=== PATIENT | female | born 1975 | race African-American/Black ===

== ENCOUNTER 2017-09-22 02:45 | Emergency (ER) | payer SELFPAY ==
[2017-09-22] MEDS ORDERED: MAGNE/ALUM HYDROXD 30 ML UCUP ONE (03:49)
[2017-09-22] MEDS ORDERED: LIDOCAINE VISCOUS 2% SOLN 15 ML UDC ONE (03:49)
[2017-09-22] MEDS ORDERED: DEXAMETHASONE 10 MG/ML VIAL ONE (04:15)
[2017-09-22 04:16] LABS: Protime INR 1.23
[2017-09-22 04:17] LABS: Absolute Monocytes 0.4 K/uL (0.1-1.3); Absolute Neutrophil 3.7 K/uL (1.8-8.0); Basophils % 0.3 % (0-1.3); Eosinophils % 1.5 % (0-4.4); Hematocrit 39.8 % (36.0-45.0); MCH 29.7 pg (27.0-35.0); MCV 88.7 fL (80-100); MPV 8.9 fL (7.6-11.3); Monocytes % 6.7 % (3.3-12.3); RBC Red Blood Cell Count 4.49 M/uL (3.86-4.86)
[2017-09-22 04:31] LABS: ALT/SGPT 45 U/L (12-78); AST/SGOT 26 U/L (15-37); Albumin 3.8 g/dL (3.4-5.0); Alkaline Phosphatase 85 U/L (45-117); BUN Blood Urea Nitrogen 11 mg/dL (7-18); Bicarbonate 31 mmol/L (21-32); Bilirubin Direct 0.1 mg/dL (0-0.2); Bilirubin Total 0.5 mg/dL (0.2-1.0); Glucose Level 106 mg/dL (74-106); Magnesium 2.1 mg/dL (1.8-2.4); NT PRO-BNP 17 pg/mL (<125); Potassium 3.5 mmol/L (3.5-5.1); Protein, Total 8.8 g/dL (6.4-8.2); Sodium Level 140 mmol/L (136-145)
[2017-09-22 04:40] LABS: Urine Blood TRACE (NEG); Urine Glucose NEGATIVE (NEG); Urine Protein NEGATIVE (NEG); Urine pH 6.5 (5.0-7.0)
[2017-09-22 04:46] LABS: Urine Culture Reflex Order NOT NEEDED
[2017-09-22 04:47] LABS: Urine Amorphous Sediment 1+ /HPF (NONE SEEN); Urine Bacteria <20 /HPF (<20); Urine RBC <5 /HPF (NONE SEEN)
--- NOTE | 2017-09-22 07:05 | ER ---
Nurse's Notes [facility] Name: Roxana Sanchez Age: 42 yrs Sex: Female : 1975 Arrival Date: 09/22/2017 Time: 02:45 Bed 20 Private MD: Diagnosis: Acute Chest Pain;Acute Throat Pain Presentation: 09/22 02:50 Presenting complaint: Patient states: that for the past 2 nights she has been having a sore throat and it feels as if her "esophagus" is closing up. Also having chest pain that does not radiate. Denies any nausea or vomiting but some shortness of breath. Transition of care: patient was not received from another setting of care. Onset of symptoms was September 20, 2017. Risk Assessment: Do you want to hurt yourself or someone else? Patient reports no desire to harm self or others. Initial Sepsis Screen: Does the patient meet any 2 criteria? No. Patient's initial sepsis screen is negative. Does the patient have a suspected source of infection? No. Patient's initial sepsis screen is negative. Care prior to arrival: None. 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 - Social history:: Smoking status: Patient/guardian denies using tobacco. - Ebola Screening: : Patient negative for fever greater than or equal to 101.5 degrees Fahrenheit, and additional compatible Ebola Virus Disease symptoms Patient denies exposure to infectious person Patient denies travel to an Ebola-affected area in the 21 days before illness onset. - Family history:: not pertinent. - Hospitalizations: : No recent hospitalization is reported. Screenin:00 Abuse screen: Denies threats or abuse. Nutritional screening: No deficits noted. fc Tuberculosis screening: No symptoms or risk factors identified. Fall Risk None identified. Assessment: 03:00 General: Appears in no apparent distress. uncomfortable, Behavior is calm, cooperative, bs1 appropriate for age. Pain: Complains of pain in chest/epigastric area Pain does not radiate. Pain began gradually. Neuro: Level of Consciousness is awake, alert, obeys commands, Oriented to person, place, time, situation, Appropriate for age. Cardiovascular: Reports chest pain, Denies shortness of breath, Heart tones S1 S2 present Capillary refill < 3 seconds Patient's skin is warm and dry. Respiratory: Airway is patent Trachea midline Respiratory effort is even, unlabored, Respiratory pattern is regular, symmetrical, Breath sounds are clear bilaterally. Respiratory: Reports cough that is productive, patient states that she feels some her esophagus is closing up and it feels like she cant breathe. GI: Abdomen is round non-distended, Bowel sounds present X 4 quads. Reports epigastric pain. : No signs and/or symptoms were reported regarding the genitourinary system. EENT: No signs and/or symptoms were reported regarding the EENT system. Derm: Skin is intact, Skin is pink, warm \\T\\ dry. normal. Musculoskeletal: Circulation, motion, and sensation intact. Capillary refill < 3 seconds, Range of motion: intact in all extremities. 04:00 Reassessment: No changes from previously documented assessment. Patient and/or family bs1 updated on plan of care and expected duration. Pain level reassessed. Patient is alert, oriented x 3, equal unlabored respirations, skin warm/dry/pink. 05:00 Reassessment: Patient appears in no apparent distress at this time. Patient and/or bs1 family updated on plan of care and expected duration. Pain level reassessed. Patient is alert, oriented x 3, equal unlabored respirations, skin warm/dry/pink. patient denies any nausea or vomiting at this time. 06:15 Reassessment: Patient and/or family updated on plan of care and expected duration. Pain bs1 level reassessed. Patient is alert, oriented x 3, equal unlabored respirations, skin warm/dry/pink. Pending CT results. No further needs at this time. Patient denies pain at this time. 07:05 Reassessment: Patient appears in no apparent distress at this time. Patient and/or em family updated on plan of care and expected duration. Pain level reassessed. Patient is alert, oriented x 3, equal unlabored respirations, skin warm/dry/pink. Patient states feeling better. Vital Signs: 02:50 BP 129 / 82; Pulse 63; Resp 18; Temp 98.9(O); Pulse Ox 100% on R/A; Weight 72.57 kg fc (R); Height 5 ft. 4 in. (162.56 cm) (R); Pain 7/10; 03:50 BP 134 / 83; Pulse 64; Resp 17 S; Pulse Ox 100% ; bs1 04:50 BP 123 / 74; Pulse 66; Resp 16 S; Pulse Ox 98% on R/A; bs1 05:50 BP 121 / 78; Pulse 64; Resp 16; Pulse Ox 99% on R/A; bs1 06:15 BP 131 / 83; Pulse 66; Resp 16 S; Temp 98(O); Pulse Ox 98% on R/A; bs1 07:23 BP 117 / 65; Pulse 71; Resp 18; Pulse Ox 99% on R/A; Pain 4/10; em 02:50 Body Mass Index 27.46 (72.57 kg, 162.56 cm) fc ED Course: 02:45 Patient arrived in ED. ds1 02:50 Arm band placed on Patient placed in an exam room, on a stretcher. fc 02:50 Patient has correct armband on for positive identification. Placed in gown. Bed in low fc position. Call light in reach. monitor tech on. Pulse ox on. NIBP on. 02:53 Isaak Lomax MD is Attending Physician. wa 02:58 Triage completed. fc 02:59 No provider procedures requiring assistance completed. EKG done, by ED staff, reviewed fc by Isaak Lomax MD. Patient maintains SpO2 saturation greater than 95% on room air. 03:13 France Renner, RN is Primary Nurse. bs1 03:55 Initial lab(s) drawn, by in, sent to lab. Inserted saline lock: 20 gauge in right ks6 antecubital area, using aseptic technique. Blood collected. 04:08 Chest Pa And Lat (2 Views) XRAY In Process Unspecified. EDMS 04:19 Radiology exam delayed due to lab results not completed at this time. (BUN/Creatinine). kw1 04:[address] via wheelchair. kw1 05:20 CT Chest For PE Angio In Process Unspecified. EDMS 05:21 CT Soft Tissue Neck W/contr In Process Unspecified. EDMS 05:21 CT completed. Patient tolerated procedure well. Patient moved back from CT. kw1 07:20 IV discontinued, intact, bleeding controlled, No redness/swelling at site. Pressure em dressing applied. Administered Medications: 03:51 Drug: GI Cocktail without - (Maalox Suspension 30 ml, Lidocaine Liquid 2 % 15 bs1 ml) Route: PO; 07:22 Follow up: Response: No adverse reaction em 04:17 Drug: Decadron - Dexamethasone 10 mg Route: IVP; Site: right antecubital; bs1 07:22 Follow up: Response: No adverse reaction em Outcome: 07:04 Discharge ordered by . estelita 07:21 Discharged to home ambulatory. em 07:21 Condition: good 07:21 Discharge instructions given to patient, Instructed on discharge instructions, follow up and referral plans. medication usage, Demonstrated understanding of instructions, follow-up care, medications, Prescriptions given X 1. 07:24 Patient left the ED. em Signatures: Dispatcher [employer] EDAK Prabha Franco, RN RN Tico Null, CHEMISTRY TECHNICAL OFFICER CHEMISTRY TECHNICAL OFFICER em Sridevi Jeffries ds1 Isaak Lomax MD MD wa Wilhelm, Kimberly kw1 France Renner RN RN bs1 Obed Merrill ks6
--- NOTE | 2017-09-22 07:05 | EDPHYS ---
Physician Documentation [facility] Name: Roxana Sanchez Age: 42 yrs Sex: Female : 1975 Arrival Date: 09/22/2017 Time: 02:45 Bed 20 Private MD: ED Physician Isaak Lomax HPI: 09/22 06:52 This 42 yrs old Black Female presents to ER via Ambulatory with complaints of Chest wa Pain, Sore Throat. 06:52 The patient or guardian reports chest pain that is located primarily in the L chest. wa c/o L chest pain and sensation of "something stuck in the throat" x 2 days. woke her up while laying down tonight. denies known ingestion. Onset: 2 day(s) ago. The pain does not radiate. Associated signs and symptoms: Pertinent positives: Pertinent negatives: abdominal pain, cough, dizziness, headache, shortness of breath, syncope, vomiting. The chest pain is described as sharp. Duration: The patient or guardian reports a single episode, The patient or guardian reports multiple episodes, that are intermittent, that wax and wane. Modifying factors: The symptoms are alleviated by nothing. the symptoms are aggravated by swallowing. Severity of pain: At its worst the pain was moderate in the emergency department the pain is unchanged. The patient has not experienced similar symptoms in the past. The patient has not recently seen a physician. 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 - Social history:: Smoking status: Patient/guardian denies using tobacco. - Ebola Screening: : Patient negative for fever greater than or equal to 101.5 degrees Fahrenheit, and additional compatible Ebola Virus Disease symptoms Patient denies exposure to infectious person Patient denies travel to an Ebola-affected area in the 21 days before illness onset. - Family history:: not pertinent. - Hospitalizations: : No recent hospitalization is reported. ROS: 06:55 Constitutional: Negative for fever, chills, and weight loss, Eyes: Negative for injury, wa pain, redness, and discharge, Neck: Negative for injury, pain, and swelling, Respiratory: Negative for shortness of breath, cough, wheezing, and pleuritic chest pain, Abdomen/GI: Negative for abdominal pain, nausea, vomiting, diarrhea, and constipation, Back: Negative for injury and pain, : Negative for injury, bleeding, discharge, and swelling, MS/Extremity: Negative for injury and deformity, Skin: Negative for injury, rash, and discoloration, Neuro: Negative for headache, weakness, numbness, tingling, and seizure, Psych: Negative for depression, anxiety, suicide ideation, homicidal ideation, and hallucinations. 06:55 ENT: Positive for foreign body sensation, Negative for nasal discharge, rhinorrhea. 06:55 Cardiovascular: Positive for chest pain, Negative for edema, orthopnea, palpitations. Exam: 06:56 Constitutional: This is a well developed, well nourished patient who is awake, alert, wa and in no acute distress. Head/Face: Normocephalic, atraumatic. Eyes: Pupils equal round and reactive to light, extra-ocular motions intact. Lids and lashes normal. Conjunctiva and sclera are non-icteric and not injected. Cornea within normal limits. Periorbital areas with no swelling, redness, or edema. ENT: Nares patent. No nasal discharge, no septal abnormalities noted. Tympanic membranes are normal and external auditory canals are clear. Oropharynx with no redness, swelling, or masses, exudates, or evidence of obstruction, uvula midline. Mucous membranes moist. Neck: Trachea midline, no thyromegaly or masses palpated, and no cervical lymphadenopathy. Supple, full range of motion without nuchal rigidity, or vertebral point tenderness. No Meningismus. Chest/axilla: Normal chest wall appearance and motion. Nontender with no deformity. No lesions are appreciated. Cardiovascular: Regular rate and rhythm with a normal S1 and S2. No gallops, murmurs, or rubs. Normal PMI, no JVD. No pulse deficits. Respiratory: Lungs have equal breath sounds bilaterally, clear to auscultation and percussion. No rales, rhonchi or wheezes noted. No increased work of breathing, no retractions or nasal flaring. Abdomen/GI: Soft, non-tender, with normal bowel sounds. No distension or tympany. No guarding or rebound. No evidence of tenderness throughout. Back: No spinal tenderness. No costovertebral tenderness. Full range of motion. Skin: Warm, dry with normal turgor. Normal color with no rashes, no lesions, and no evidence of cellulitis. MS/ Extremity: Pulses equal, no cyanosis. Neurovascular intact. Full, normal range of motion. Neuro: Awake and alert, GCS 15, oriented to person, place, time, and situation. Cranial nerves II-XII grossly intact. Motor strength 5/5 in all extremities. Sensory grossly intact. Cerebellar exam normal. Normal gait. Psych: Awake, alert, with orientation to person, place and time. Behavior, mood, and affect are within normal limits. Vital Signs: 02:50 BP 129 / 82; Pulse 63; Resp 18; Temp 98.9(O); Pulse Ox 100% on R/A; Weight 72.57 kg fc (R); Height 5 ft. 4 in. (162.56 cm) (R); Pain 7/10; 03:50 BP 134 / 83; Pulse 64; Resp 17 S; Pulse Ox 100% ; bs1 04:50 BP 123 / 74; Pulse 66; Resp 16 S; Pulse Ox 98% on R/A; bs1 05:50 BP 121 / 78; Pulse 64; Resp 16; Pulse Ox 99% on R/A; bs1 06:15 BP 131 / 83; Pulse 66; Resp 16 S; Temp 98(O); Pulse Ox 98% on R/A; bs1 07:23 BP 117 / 65; Pulse 71; Resp 18; Pulse Ox 99% on R/A; Pain 4/10; em 02:50 Body Mass Index 27.46 (72.57 kg, 162.56 cm) MDM: 02:53 Patient medically screened. wa 06:57 Differential diagnosis: r/o cardiac abnml. consider FB vs oropharyngeal swelling. Data wa reviewed: vital signs, nurses notes. Test interpretation: by ED physician or midlevel provider: EKG: no acute ischemic changes. 06:59 Test interpretation: by ED physician or midlevel provider: labs wnl. CT chest: no acute wa process. 07:01 Test interpretation: by ED physician or midlevel provider: EKG: HR 63. nml . wa 07:02 Test interpretation: by ED physician or midlevel provider: CT neck: mild subglottic id trachea narrowing. no assoc suspicious findings. 07:02 Response to treatment: the patient's symptoms have markedly improved after treatment. id 09/22 03:06 Order name: Urine Dipstick--Ancillary (enter results); Complete Time: 04:47 09/22 03:24 Order name: Basic Metabolic Panel; Complete Time: 04:47 id 09/22 03:24 Order name: CBC with Diff; Complete Time: 04:48 id 09/22 03:24 Order name: LFT's; Complete Time: 04:47 id 09/22 03:24 Order name: Magnesium; Complete Time: 04:48 id 09/22 03:24 Order name: NT PRO-BNP; Complete Time: 04:48 id 09/22 03:24 Order name: PT-INR; Complete Time: 04:47 id 09/22 03:24 Order name: Troponin (emerg Dept Use Only); Complete Time: 04:48 id 09/22 03:24 Order name: Chest Pa And Lat (2 Views) XRAY 09/22 03:25 Order name: Urine Microscopic Only; Complete Time: 04:48 id 09/22 03:27 Order name: CT Chest For PE Angio 09/22 03:29 Order name: CT Soft Tissue Neck W/contr 09/22 03:24 Order name: EKG; Complete Time: 03:24 id 09/22 03:24 Order name: Cardiac monitoring; Complete Time: 03:30 id 09/22 03:24 Order name: EKG - Nurse/Tech; Complete Time: 03:30 id 09/22 03:24 Order name: IV Saline Lock; Complete Time: 03:56 id 09/22 03:24 Order name: Labs collected and sent; Complete Time: 03:56 id 09/22 03:24 Order name: O2 Per Protocol; Complete Time: 03:43 id 09/22 03:24 Order name: O2 Sat Monitoring; Complete Time: 03:31 id 09/22 03:24 Order name: Urine Dipstick-Ancillary (obtain specimen); Complete Time: 03:30 id 09/22 03:27 Order name: Urine Test (obtain specimen); Complete Time: 04:18 id Administered Medications: 03:51 Drug: GI Cocktail without - (Maalox Suspension 30 ml, Lidocaine Liquid 2 % 15 bs1 ml) Route: PO; 07:22 Follow up: Response: No adverse reaction em 04:17 Drug: Decadron - Dexamethasone 10 mg Route: IVP; Site: right antecubital; bs1 07:22 Follow up: Response: No adverse reaction em Disposition: 09/22/17 07:04 Discharged to Home. Impression: Acute Chest Pain, Acute Throat Pain. - Condition is Stable. - Prescriptions for Prednisone 20 mg Oral Tablet - take 2 tablet by ORAL route once daily for 5 days; 10 tablet. - Medication Reconciliation Form, Thank You Letter, Antibiotic Education, Prescription Opioid Use form. - Follow up: Private Physician; Reason: Re-evaluation by your physician. - Problem is new. - Symptoms have improved. - Notes: follow up with the ENT doctor as discussed. Signatures: Dispatcher [employer] Prabha Whitaker, RN RN Tico Null, FRAME STRAIGHTENER FRAME STRAIGHTENER Isaak Lomax MD MD wa Salazar, Brittany RN RN bs1 Corrections: (The following items were deleted from the chart) 07:24 07:04 09/22/2017 07:04 Discharged to Home. Impression: Acute Chest Pain; Acute Throat em Pain. Condition is Stable. Forms are Medication Reconciliation Form, Thank You Letter, Antibiotic Education, Prescription Opioid Use. Follow up: Private Physician; Reason: Re-evaluation by your physician. Problem is new. Symptoms have improved. estelita
--- NOTE | 2017-09-22 08:40 | EKG ---
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
--- NOTE | 2017-09-22 09:38 | RAD REPORT ---
EXAM DESCRIPTION: RAD - Chest Pa And Lat (2 Views) - 09/22/2017 4:08 am CLINICAL HISTORY: Chest pain, shortness of breath November COMPARISON: November 2016 TECHNIQUE: PA and lateral views of the chest were obtained. FINDINGS: The lungs are clear. Heart size is normal and central vasculature is within normal limit s. No pleural effusion or pneumothorax seen. No acute bony finding noted. No aortic abnormality. IMPRESSION: No acute cardiopulmonary process. No significant interval change.
--- NOTE | 2017-09-22 09:48 | RAD REPORT ---
EXAM DESCRIPTION: CT - Chest For Pe Angio - 09/22/2017 5:20 am CLINICAL HISTORY: Chest pain, shortness of breath. A preliminary written report was provided at the time of the study, and the report was reviewed prio r to final dictation. COMPARISON: None. TECHNIQUE: Dynamically enhanced 3 mm thick images of the chest were obtained during administration o f approximately 150mL Isovue 370 IV contrast. Coronal and oblique reconstruction images were generate d and reviewed. Mid reconstruction 3D algorithm utilized. Exam utilizes a protocol to evaluate the pu lmonary arterial tree. All CT scans are performed using dose optimization technique as appropriate and may include automated exposure control or mA/KV adjustment according to patient size. FINDINGS: No pulmonary emboli are identified. The aorta as imaged shows no acute or suspicious finding. No pericardial thickening or effusion. No infiltrate or mass in the lung parenchyma. No pleural effusion or pleural thickening. No mediastinal or hilar suspicious masses. No chest wall masses or abnormal axillary lymphadenopathy. IMPRESSION: No pulmonary emboli identified. No other significant or suspicious findings.
--- NOTE | 2017-09-22 09:53 | RAD REPORT ---
EXAM DESCRIPTION: CT - Soft Tissue Neck W/Contr - 09/22/2017 5:20 am CLINICAL HISTORY: Sore throat, neck pain, difficulty breathing A preliminary written report was provided at the time of the study, and the report was reviewed prio r to final dictation. TECHNIQUE: During dynamic enhancement using 100 milliliters nonionic IV contrast, axial 5 millimeter thick images of the neck were obtained. Sagittal and coronal 2 millimeter thick reformatted images w ere generated and reviewed. All CT scans are performed using dose optimization technique as appropriate and may include automated exposure control or mA/KV adjustment according to patient size. FINDINGS: Limited intracranial portion the examination is normal. Mastoid air cells are clear. Maxil nithya sinuses are not fully imaged but appear to be clear of any significant disease. Nasopharyngeal mucosa shows no mass or asymmetry. No soft palate thickening seen. Tonsils all are not outside of normal range. Normal parapharyngeal fat identified. Subglottic narrowing is seen with a t ransverse diameter of 6 mm. No discrete mass. There is no abscess or drainable fluid collection. Vall eculae and piriform sinuses show no suspicious finding. No epiglottis thickening or edema. A few small nonspecific bilateral cervical lymph nodes are present. No bulky lymphadenopathy. Parotid, submandibular and thyroid gland tissues show no suspicious finding. There is reversal of the usual cervical lordosis that is probably positioning artifact. IMPRESSION: Subglottic narrowing possibly from viral type illness. No suspicious mass identified.
== END 2017-09-22 07:24 | disposition home or self-care (01) ==
LOC: ER 02:45
DX: R07.0 Pain in throat (principal); Z79.82 Long term (current) use of aspirin; Z88.5 Allergy status to narcotic agent
CPT/HCPCS: 36415; 70491; 71046; 71275; 80048; 80076; 81003; 81015; 83735; 83880; 84484; 85025; 85610; 93005; 96374; 99285; J1100; Q9967

== ENCOUNTER 2017-09-23 03:49 | Emergency (ER) | payer SELFPAY ==
[2017-09-23] MEDS ORDERED: NA CHLORIDE 0.9% 1,000 ML ONE (04:21)
[2017-09-23 04:24] LABS: Absolute Monocytes 0.7 K/uL (0.1-1.3); Absolute Neutrophil 6.2 K/uL (1.8-8.0); Basophils % 0.5 % (0-1.3); Eosinophils % 0.3 % (0-4.4); Hematocrit 38.6 % (36.0-45.0); Lymphocytes % 22.3 % (15.3-44.8); MCH 29.4 pg (27.0-35.0); MCV 88.2 fL (80-100); MPV 8.7 fL (7.6-11.3); Monocytes % 7.9 % (3.3-12.3); RBC Red Blood Cell Count 4.37 M/uL (3.86-4.86)
[2017-09-23 04:44] LABS: Protime INR 1.19
[2017-09-23 04:54] LABS: ALT/SGPT 39 U/L (12-78); AST/SGOT 23 U/L (15-37); Albumin 3.6 g/dL (3.4-5.0); Alkaline Phosphatase 80 U/L (45-117); BUN Blood Urea Nitrogen 14 mg/dL (7-18); Bicarbonate 29 mmol/L (21-32); Bilirubin Direct < 0.1 mg/dL (0-0.2); Bilirubin Total 0.4 mg/dL (0.2-1.0); CKMB Creatine Kinase MB 1.3 ng/mL (0.3-3.6); Creatine Phosphokinase 236 U/L (26-192); Glucose Level 108 mg/dL (74-106); Magnesium 2.2 mg/dL (1.8-2.4); NT PRO-BNP 23 pg/mL (<125); Potassium 3.6 mmol/L (3.5-5.1); Protein, Total 8.4 g/dL (6.4-8.2); Sodium Level 141 mmol/L (136-145)
[2017-09-23 05:08] LABS: Urine Blood TRACE (NEG); Urine Glucose NEGATIVE (NEG); Urine Protein NEGATIVE (NEG); Urine pH 6.5 (5.0-7.0)
[2017-09-23 05:35] LABS: Barbiturates NEGATIVE (NEGATIVE); Benzodiazepines NEGATIVE (NEGATIVE); Cocaine NEGATIVE (NEGATIVE); METHAMPHETAM NEGATIVE (NEGATIVE); Methadone NEGATIVE (NEGATIVE); Opiates NEGATIVE (NEGATIVE); Phencyclidine NEGATIVE (NEGATIVE); THC Cannibis NEGATIVE (NEGATIVE)
--- NOTE | 2017-09-23 05:35 | EDPHYS ---
Physician Documentation [facility] Name: Roxana Sanchez Age: 42 yrs Sex: Female : 1975 Arrival Date: 09/23/2017 Time: 03:55 Bed 15 Private MD: ED Physician Shahbaz Corado HPI: 09/23 04:16 This 42 yrs old Black Female presents to ER via EMS with complaints of Anxiety. olayinka 04:16 The patient presents with a history of heart racing. Context: The symptoms occur at olayinka rest. Onset: The symptoms/episode began/occurred just prior to arrival. Duration: The patient or guardian reports multiple episodes, that have now resolved. Modifying factors: The symptoms are aggravated by anxiety, The symptoms are alleviated by nothing. remaining still. Associated signs and symptoms: The patient has no apparent associated signs or symptoms. Severity of symptoms: At their worst the symptoms were mild in the emergency department the symptoms are unchanged. The patient has experienced similar episodes in the past, a few times. 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 - Social history:: Smoking status: Patient/guardian denies using tobacco, never smoked, Patient/guardian denies using alcohol, street drugs. - Ebola Screening: : Patient negative for fever greater than or equal to 101.5 degrees Fahrenheit, and additional compatible Ebola Virus Disease symptoms Patient denies exposure to infectious person Patient denies travel to an Ebola-affected area in the 21 days before illness onset. - Family history:: not pertinent. ROS: 04:16 Constitutional: Negative for fever, chills, and weight loss, Eyes: Negative for injury, olayinka pain, redness, and discharge, ENT: Negative for injury, pain, and discharge, Neck: Negative for injury, pain, and swelling, Respiratory: Negative for shortness of breath, cough, wheezing, and pleuritic chest pain, Abdomen/GI: Negative for abdominal pain, nausea, vomiting, diarrhea, and constipation, Back: Negative for injury and pain, : Negative for injury, bleeding, discharge, and swelling, MS/Extremity: Negative for injury and deformity, Skin: Negative for injury, rash, and discoloration, Neuro: Negative for headache, weakness, numbness, tingling, and seizure, Psych: Negative for depression, anxiety, suicide ideation, homicidal ideation, and hallucinations, Allergy/Immunology: Negative for hives, rash, and allergies, Endocrine: Negative for neck swelling, polydipsia, polyuria, polyphagia, and marked weight changes, Hematologic/Lymphatic: Negative for swollen nodes, abnormal bleeding, and unusual bruising. 04:16 Cardiovascular: Positive for palpitations. Exam: 04:16 Constitutional: This is a well developed, well nourished patient who is awake, alert, olayinka and in no acute distress. Head/Face: Normocephalic, atraumatic. Eyes: Pupils equal round and reactive to light, extra-ocular motions intact. Lids and lashes normal. Conjunctiva and sclera are non-icteric and not injected. Cornea within normal limits. Periorbital areas with no swelling, redness, or edema. ENT: Nares patent. No nasal discharge, no septal abnormalities noted. Tympanic membranes are normal and external auditory canals are clear. Oropharynx with no redness, swelling, or masses, exudates, or evidence of obstruction, uvula midline. Mucous membranes moist. Neck: Trachea midline, no thyromegaly or masses palpated, and no cervical lymphadenopathy. Supple, full range of motion without nuchal rigidity, or vertebral point tenderness. No Meningismus. Chest/axilla: Normal chest wall appearance and motion. Nontender with no deformity. No lesions are appreciated. Cardiovascular: Regular rate and rhythm with a normal S1 and S2. No gallops, murmurs, or rubs. Normal PMI, no JVD. No pulse deficits. Respiratory: Lungs have equal breath sounds bilaterally, clear to auscultation and percussion. No rales, rhonchi or wheezes noted. No increased work of breathing, no retractions or nasal flaring. Abdomen/GI: Soft, non-tender, with normal bowel sounds. No distension or tympany. No guarding or rebound. No evidence of tenderness throughout. Back: No spinal tenderness. No costovertebral tenderness. Full range of motion. Female : Normal external genitalia. Skin: Warm, dry with normal turgor. Normal color with no rashes, no lesions, and no evidence of cellulitis. MS/ Extremity: Pulses equal, no cyanosis. Neurovascular intact. Full, normal range of motion. Neuro: Awake and alert, GCS 15, oriented to person, place, time, and situation. Cranial nerves II-XII grossly intact. Motor strength 5/5 in all extremities. Sensory grossly intact. Cerebellar exam normal. Normal gait. Psych: Awake, alert, with orientation to person, place and time. Behavior, mood, and affect are within normal limits. 04:17 Musculoskeletal/extremity: DVT Exam: No signs of deep vein thrombosis. no pain, no olayinka swelling, no tenderness, negative Homans' sign noted on exam, no appreciated bluish discoloration, no erythema, no increased warmth. Vital Signs: 04:06 BP 131 / 92; Pulse 67; Resp 16; Pulse Ox 100% ; Weight 72.57 kg; Height 5 ft. 4 in. bp (162.56 cm); 04:58 BP 151 / 100; Pulse 71; Resp 14; Pulse Ox 100% on R/A; rv 06:00 BP 127 / 91; Pulse 68; Resp 14; Pulse Ox 100% ; bp 04:06 Body Mass Index 27.46 (72.57 kg, 162.56 cm) bp MDM: 03:56 Patient medically screened. [facility] 04:17 Data reviewed: vital signs, nurses notes, EMS record, old medical records, lab test [facility] result(s), EKG, radiologic studies. 09/23 03:57 Order name: Basic Metabolic Panel [facility] 09/23 03:57 Order name: CBC with Diff; Complete Time: 05:32 [facility] 09/23 03:57 Order name: Ckmb [facility] 09/23 03:57 Order name: CPK; Complete Time: 05:32 [facility] 09/23 03:57 Order name: LFT's; Complete Time: 05:32 [facility] 09/23 03:57 Order name: Magnesium; Complete Time: 05:32 [facility] 09/23 03:57 Order name: NT PRO-BNP; Complete Time: 05:32 [facility] 09/23 03:57 Order name: PT-INR; Complete Time: 05:32 [facility] 09/23 03:57 Order name: Ptt, Activated; Complete Time: 05:32 [facility] 09/23 03:57 Order name: Troponin (emerg Dept Use Only); Complete Time: 05:32 [facility] 09/23 03:57 Order name: D-Dimer; Complete Time: 05:32 [facility] 09/23 03:57 Order name: Urine Culture [facility] 09/23 03:57 Order name: TSH; Complete Time: 05:32 [facility] 09/23 03:58 Order name: Basic Metabolic Panel; Complete Time: 05:32 [facility] 09/23 03:57 Order name: Urine Test (obtain specimen) [facility] 09/23 03:57 Order name: XRAY Chest (1 view) [facility] 09/23 03:57 Order name: EKG; Complete Time: 03:58 [facility] 09/23 03:57 Order name: Cardiac monitoring; Complete Time: 04:08 [facility] 09/23 03:57 Order name: EKG - Nurse/Tech; Complete Time: 04:08 [facility] 09/23 03:57 Order name: IV Saline Lock; Complete Time: 04:34 [facility] 09/23 03:57 Order name: Labs collected and sent; Complete Time: 04:34 [facility] 09/23 03:57 Order name: O2 Per Protocol; Complete Time: 04:34 [facility] 09/23 03:57 Order name: O2 Sat Monitoring; Complete Time: 04:34 [facility] 09/23 03:57 Order name: Urine Dipstick-Ancillary (obtain specimen); Complete Time: 05:02 [facility] 09/23 03:58 Order name: CKMB Creatine Kinase MB; Complete Time: 05:32 [facility] 09/23 04:19 Order name: UDS; Complete Time: 05:35 [facility] 09/23 04:59 Order name: Urine Dipstick--Ancillary (enter results); Complete Time: 05:32 eb Administered Medications: 04:34 Drug: NS 0.9% 1000 ml Route: IV; Rate: 1 bolus; Site: right antecubital; rv 05:50 Follow up: IV Status: Completed infusion rv 05:50 Drug: ToPROL XL 25 mg Route: PO; rv 05:50 Follow up: Response: Medication administered at discharge. rv Disposition: 09/23/17 05:35 Discharged to Home. Impression: Anxiety disorder, unspecified, Palpitations. - Condition is Stable. - Discharge Instructions: Panic Attacks, Palpitations, Panic Attacks, [id number]-[id number], Aspirin and Your Heart, Palpitations, Uygf-wg-Irke. - Prescriptions for Xanax 0.5 mg Oral Tablet - take 1 tablet by ORAL route every 8 hours As needed; 20 tablet. Toprol XL 25 mg Oral Tablet - take 1 tablet by ORAL route once daily; 20 tablet. - Medication Reconciliation Form, Thank You Letter, Antibiotic Education, Prescription Opioid Use form. - Follow up: Private Physician; When: 2 - 3 days; Reason: Recheck today's complaints, Continuance of care, Re-evaluation by your physician. Follow up: Fernando Varghese MD; When: 2 - 3 days; Reason: Recheck today's complaints, Continuance of care, Re-evaluation by your physician. - Problem is new. - Symptoms have improved. Signatures: Dispatcher [employer] EDMS Shahbaz Corado MD MD cha Peltier, Brian RN RN Francisco Chen RN RN rv Corrections: (The following items were deleted from the chart) 06:25 05:35 09/23/2017 05:35 Discharged to Home. Impression: Anxiety disorder, unspecified; bp Palpitations. Condition is Stable. Discharge Instructions: Panic Attacks, Palpitations, Panic Attacks, [id number], Aspirin and Your Heart, Palpitations, Qgxv-km-Cbgy. Prescriptions for Xanax 0.5 mg Oral Tablet - take 1 tablet by ORAL route every 8 hours As needed; 20 tablet, Toprol XL 25 mg Oral Tablet - take 1 tablet by ORAL route once daily; 20 tablet. and Forms are Medication Reconciliation Form, Thank You Letter, Antibiotic Education, Prescription Opioid Use. Follow up: Private Physician; When: 2 - 3 days; Reason: Recheck today's complaints, Continuance of care, Re-evaluation by your physician. Follow up: Fernando Varghese; When: 2 - 3 days; Reason: Recheck today's complaints, Continuance of care, Re-evaluation by your physician. Problem is new. Symptoms have improved. olayinka
--- NOTE | 2017-09-23 05:35 | ER ---
Nurse's Notes [facility] Name: Roxana Sanchez Age: 42 yrs Sex: Female : 1975 Arrival Date: 09/23/2017 Time: 03:55 Bed 15 Private MD: Diagnosis: Anxiety disorder, unspecified;Palpitations Presentation: 09/23 04:02 Presenting complaint: Patient states: "I feel like I am having palpitations while I was bp watching TV, I haven't slept good for 3 days.". Transition of care: patient was not received from another setting of care. Onset of symptoms was September 23, 2017 at 03:00. Risk Assessment: Do you want to hurt yourself or someone else? Patient reports no desire to harm self or others. Initial Sepsis Screen: Does the patient meet any 2 criteria? No. Patient's initial sepsis screen is negative. Initial Sepsis Screen: Does the patient have a suspected source of infection? No. Patient's initial sepsis screen is negative. Care prior to arrival: None. 04:02 Method Of Arrival: EMS bp 04:02 Acuity: DELMI 3 bp Triage Assessment: 06:00 General: Behavior is cooperative, appropriate for age, anxious. 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 - Social history:: Smoking status: Patient/guardian denies using tobacco, never smoked, Patient/guardian denies using alcohol, street drugs. - Ebola Screening: : Patient negative for fever greater than or equal to 101.5 degrees Fahrenheit, and additional compatible Ebola Virus Disease symptoms Patient denies exposure to infectious person Patient denies travel to an Ebola-affected area in the 21 days before illness onset. - Family history:: not pertinent. Screenin:36 Abuse screen: Denies threats or abuse. Denies injuries from another. Nutritional rv screening: No deficits noted. Tuberculosis screening: No symptoms or risk factors identified. Fall Risk None identified. Assessment: 04:35 General: Appears in no apparent distress. comfortable. Pain: Denies pain. Neuro: Level rv of Consciousness is awake, alert, obeys commands, Oriented to person, place, time, situation. Cardiovascular: Capillary refill < 3 seconds. Respiratory: Airway is patent. GI: No signs and/or symptoms were reported involving the gastrointestinal system. : No signs and/or symptoms were reported regarding the genitourinary system. EENT: No signs and/or symptoms were reported regarding the EENT system. Derm: Skin is intact. Musculoskeletal: No signs and/or symptoms reported regarding the musculoskeletal system. 04:58 Reassessment: Patient appears in no apparent distress at this time. Patient is alert, rv oriented x 3, equal unlabored respirations, skin warm/dry/pink. patient is comfortable lying on bed. vital signs are stable. 06:00 Reassessment: PT D/C HOME AMBULATORY WITH FAMILY, DX WITH ANXIETY. bp Vital Signs: 04:06 BP 131 / 92; Pulse 67; Resp 16; Pulse Ox 100% ; Weight 72.57 kg; Height 5 ft. 4 in. bp (162.56 cm); 04:58 BP 151 / 100; Pulse 71; Resp 14; Pulse Ox 100% on R/A; rv 06:00 BP 127 / 91; Pulse 68; Resp 14; Pulse Ox 100% ; bp 04:06 Body Mass Index 27.46 (72.57 kg, 162.56 cm) bp ED Course: 03:55 Patient arrived in ED. bp 03:56 Shahbaz Corado MD is Attending Physician. olayinka 03:59 Scott Mckeon, ELIJAH is Primary Nurse. bp 04:04 Triage completed. bp 04:10 Inserted saline lock: 20 gauge in right antecubital area, using aseptic technique. rv 04:36 Arm band placed on left wrist. rv 04:37 Patient has correct armband on for positive identification. Placed in gown. Bed in low rv position. Call light in reach. Side rails up X 1. Adult w/ patient. Pulse ox on. NIBP on. 04:44 X-ray completed. Portable x-ray completed in exam room. Patient tolerated procedure kw well. 04:45 XRAY Chest (1 view) In Process Unspecified. EDMS 05:35 Fernando Varghese MD is Referral Physician. olayinka 06:22 No provider procedures requiring assistance completed. IV discontinued, intact, bp bleeding controlled, No redness/swelling at site. Pressure dressing applied. Administered Medications: 04:34 Drug: NS 0.9% 1000 ml Route: IV; Rate: 1 bolus; Site: right antecubital; rv 05:50 Follow up: IV Status: Completed infusion rv 05:50 Drug: ToPROL XL 25 mg Route: PO; rv 05:50 Follow up: Response: Medication administered at discharge. rv Outcome: 05:35 Discharge ordered by . olayinka 06:00 Discharged to home ambulatory, with family. bp 06:00 Condition: stable 06:00 Discharge instructions given to patient, family, Instructed on discharge instructions, follow up and referral plans. medication usage, Demonstrated understanding of instructions, follow-up care, medications, Prescriptions given X 2. 06:25 Patient left the ED. bp Signatures: Dispatcher [employer] EDMS Shahbaz Corado MD MD cha Whitley, Kimberlee kw Peltier, Brian, RN RN Francisco Chen RN RN rv Corrections: (The following items were deleted from the chart) 05:00 04:59 Inserted saline lock: 20 gauge in right antecubital area, using aseptic rv technique. rv 06:23 04:06 Pulse 67bpm; Resp 16bpm; Pulse Ox 100%; 72.57 kg; Height 5 ft. 4 in.; BMI: 27.4; bp bp
[2017-09-23] MEDS ORDERED: METOPROLOL XL 50 MG TAB PO ONE (05:48)
--- NOTE | 2017-09-23 06:19 | EKG ---
Test Date: 2017-09-23 Test Time: 03:57:41 Gericare Aide Teacher: MEASUREMENT RESULTS: Intervals: Rate: 67 NH: 194 QRSD: 94 QT: 412 QTc: 435 [place]: P: 38 NH: 194 QRS: -5 T: 35 INTERPRETIVE STATEMENTS: Normal sinus rhythm Normal ECG Compared to ECG 09/22/2017 02:55:55 No significant changes Electronically Signed On 09-23-17 06:18:31 CDT by Cresencio Millard
--- NOTE | 2017-09-23 12:24 | RAD REPORT ---
EXAM DESCRIPTION: RAD - Chest Single View - 09/23/2017 4:47 am CLINICAL HISTORY: COUGH Chest pain. COMPARISON: Chest Pa And Lat (2 Views) dated 09/22/2017; Chest Single View dated 12/10/2016; Chest For Pe Angio dated 09/22/2017 FINDINGS: Portable technique limits examination quality. The lungs are grossly clear. The heart is normal in size. No displaced fractures. IMPRESSION: No acute intrathoracic process suspected.
== END 2017-09-23 06:25 | disposition home or self-care (01) ==
LOC: ER 03:49
DX: R00.2 Palpitations (principal); Z79.82 Long term (current) use of aspirin; Z88.5 Allergy status to narcotic agent
CPT/HCPCS: 36415; 71045; 80048; 80076; 80307; 81003; 82550; 82553; 83735; 83880; 84443; 84484; 85025; 85379; 85610; 85730; 87086; 87088; 93005; 96360; 99284; J7030

== ENCOUNTER 2017-09-26 00:55 | Emergency (ER) | payer SELFPAY ==
[2017-09-26] MEDS ORDERED: NA CHLORIDE 0.9% 1,000 ML ONE (01:49)
[2017-09-26 02:23] LABS: Absolute Lymphocytes (CBC) 2.1 K/uL (0.7-4.9); Absolute Monocytes 0.4 K/uL (0.1-1.3); Absolute Neutrophil 3.6 K/uL (1.8-8.0); Basophils % 0.6 % (0-1.3); Eosinophils % 1.6 % (0-4.4); Hematocrit 41.3 % (36.0-45.0); Lymphocytes % 33.2 % (15.3-44.8); MCH 29.7 pg (27.0-35.0); MPV 8.8 fL (7.6-11.3); Monocytes % 6.5 % (3.3-12.3); RBC Red Blood Cell Count 4.64 M/uL (3.86-4.86)
[2017-09-26 02:24] LABS: Protime INR 1.24
[2017-09-26] MEDS ORDERED: MECLIZINE HCL 12.5 MG TAB ONE (02:32)
[2017-09-26 03:02] LABS: ALT/SGPT 32 U/L (12-78); AST/SGOT 19 U/L (15-37); Albumin 3.8 g/dL (3.4-5.0); Alkaline Phosphatase 79 U/L (45-117); BUN Blood Urea Nitrogen 9 mg/dL (7-18); Bicarbonate 27 mmol/L (21-32); Bilirubin Direct < 0.1 mg/dL (0-0.2); Bilirubin Total 0.5 mg/dL (0.2-1.0); CKMB Creatine Kinase MB < 1.0 ng/mL (0.3-3.6); Creatine Phosphokinase 150 U/L (26-192); Glucose Level 111 mg/dL (74-106); Magnesium 2.3 mg/dL (1.8-2.4); NT PRO-BNP 9 pg/mL (<125); Potassium 3.8 mmol/L (3.5-5.1); Protein, Total 8.5 g/dL (6.4-8.2); Sodium Level 137 mmol/L (136-145)
--- NOTE | 2017-09-26 03:58 | ER ---
Nurse's Notes [facility] Name: Roxana Sanchez Age: 42 yrs Sex: Female : 1975 Arrival Date: 09/26/2017 Time: 00:56 Bed 15 Private MD: Diagnosis: near syncope Presentation: 09/26 01:00 Presenting complaint: Patient states: that she is having tightness of her head and fc feels as if she is going to pass out. Was here 2 days ago for anxiety and is currently feeling the same way. Was given Xanax 0.25 mg to take. Transition of care: patient was not received from another setting of care. Onset of symptoms was September 25, 2017. Risk Assessment: Do you want to hurt yourself or someone else? Patient reports no desire to harm self or others. Initial Sepsis Screen: Does the patient meet any 2 criteria? No. Patient's initial sepsis screen is negative. Does the patient have a suspected source of infection? No. Patient's initial sepsis screen is negative. Care prior to arrival: None. 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 - Social history:: Smoking status: Patient/guardian denies using tobacco. - Ebola Screening: : Patient negative for fever greater than or equal to 101.5 degrees Fahrenheit, and additional compatible Ebola Virus Disease symptoms Patient denies exposure to infectious person Patient denies travel to an Ebola-affected area in the 21 days before illness onset. Screenin:14 Abuse screen: Denies threats or abuse. Denies injuries from another. Nutritional mg2 screening: No deficits noted. Tuberculosis screening: No symptoms or risk factors identified. Fall Risk None identified. Assessment: 01:14 General: Appears in no apparent distress. comfortable, Behavior is calm, cooperative. mg2 Pain: Denies pain. Neuro: Level of Consciousness is awake, alert, obeys commands, Oriented to person, place, time, situation. Neuro: Reports head tightness. Cardiovascular: Capillary refill < 3 seconds Patient's skin is warm and dry. Respiratory: Airway is patent Respiratory effort is even, unlabored, Respiratory pattern is regular, symmetrical. GI: No signs and/or symptoms were reported involving the gastrointestinal system. : No signs and/or symptoms were reported regarding the genitourinary system. EENT: No signs and/or symptoms were reported regarding the EENT system. Derm: No signs and/or symptoms reported regarding the dermatologic system. Derm: No signs and/or symptoms reported regarding the dermatologic system. Musculoskeletal: No signs and/or symptoms reported regarding the musculoskeletal system. 03:31 General: Appears in no apparent distress. comfortable, Behavior is calm, cooperative, ao appropriate for age. Pain: Denies pain. Neuro: Level of Consciousness is awake, alert, obeys commands, Oriented to person, place, Moves all extremities. Speech is normal, Facial symmetry appears normal. Cardiovascular: Patient's skin is warm and dry. Respiratory: Airway is patent Respiratory effort is even, unlabored, Respiratory pattern is regular, symmetrical. GI: Abdomen is non-distended. : No signs and/or symptoms were reported regarding the genitourinary system. EENT: No signs and/or symptoms were reported regarding the EENT system. Derm: No signs and/or symptoms reported regarding the dermatologic system. Musculoskeletal: No signs and/or symptoms reported regarding the musculoskeletal system. 04:10 Reassessment: Patient appears in no apparent distress at this time. Patient and/or ao family updated on plan of care and expected duration. Pain level reassessed. Patient is alert, oriented x 3, equal unlabored respirations, skin warm/dry/pink. Waiting on CT report. 04:50 Reassessment: Patient appears in no apparent distress at this time. Called CT to check ao if any information on CT report. Was told that images will be sent. Waiting on CT report. 05:05 Reassessment: Dc instructions given to patient and significant other. Patient agree to ao follow up. Provided with information with neurologies for patient to follow up. Vital Signs: 01:00 BP 143 / 91; Pulse 79; Resp 18; Temp 99.0(O); Pulse Ox 99% on R/A; Weight 72.57 kg (R); fc Height 5 ft. 4 in. (162.56 cm) (R); Pain 0/10; 02:41 BP 143 / 91 Sitting; mg2 02:41 BP 142 / 93 Standing; mg2 02:41 BP 129 / 82 Supine; Pulse 70 RA; mg2 03:31 BP 129 / 89; Pulse 60; Resp 16; Pulse Ox 100% ; Pain 0/10; ao 04:30 BP 115 / 84; Pulse 62; Resp 16; Pulse Ox 100% ; ao 04:59 BP 126 / 82; Pulse 63; Resp 18; Pulse Ox 99% on R/A; Pain 0/10; ao 01:00 Body Mass Index 27.46 (72.57 kg, 162.56 cm) fc 02:41 lying mg2 ED Course: 00:56 Patient arrived in ED. ds1 01:00 Arm band placed on Patient placed in an exam room, on a stretcher. fc 01:08 Triage completed. fc 01:13 Glenroy Malloy, ELIJAH is Primary Nurse. mg2 01:16 Shahbaz Sanz PA is PHCP. cp 01:16 Bayron Fung MD is Attending Physician. cp 01:19 Patient has correct armband on for positive identification. Side rails up X 1. Door mg2 closed. Warm blanket given. 01:[address] via wheelchair. kw1 01:50 CT completed. Patient tolerated procedure well. Patient moved back from CT. kw1 01:53 CT Head Brain wo Cont In Process Unspecified. EDMS 01:55 Inserted saline lock: 20 gauge in left forearm, using aseptic technique. Blood mg2 collected. 01:58 X-ray completed. Portable x-ray completed in exam room. Patient tolerated procedure bb2 well. Radiology exam delayed due to. 03:40 XRAY Chest (1 view) In Process Unspecified. EDMS 03:57 Bayron Fung MD is Referral Physician. tw4 05:01 No provider procedures requiring assistance completed. IV discontinued, intact, ao bleeding controlled, No redness/swelling at site. Pressure dressing applied. Administered Medications: 02:12 Drug: NS 0.9% 1000 ml Route: IV; Rate: 1 bolus; Site: left forearm; mg2 02:33 Drug: Meclizine 25 mg Route: PO; mg2 Outcome: 03:57 Discharge ordered by MD. [email or web address] 05:02 Discharged to home ambulatory. ao 05:02 Condition: stable 05:02 Discharge instructions given to patient, significant other, Instructed on discharge instructions, follow up and referral plans. Demonstrated understanding of instructions, follow-up care, medications, Prescriptions given X 05:08 Patient left the ED. ao Signatures: Dispatcher [employer] EDMS Prabha Franco RN RN [employer] ds1 Shahbaz Sanz PA PA cp Ortiz, Alex, RN RN ao Delmy Mares kw1 [place] Tian bb2 Bayron Fung MD MD tw4 Glenroy Malloy RN RN mg2
--- NOTE | 2017-09-26 03:58 | EDPHYS ---
Physician Documentation [facility] Name: Roxana Sanchez Age: 42 yrs Sex: Female : 1975 Arrival Date: 09/26/2017 Time: 00:56 Bed 15 Private MD: ED Physician Bayron Fung HPI: 09/26 01:23 This 42 yrs old Black Female presents to ER via Ambulatory with complaints of Near cp Syncope, Tightness of Neck, Anxiety. 01:23 The patient has experienced near-syncope, almost passed out, felt dizzy. Onset: The cp symptoms/episode began/occurred today. 01:23 Associated signs and symptoms: Pertinent positives: lightheadedness, Pertinent cp negatives: abdominal pain, blurred vision, chest pain, diaphoresis, numbness, palpitations. MANAGER PLACEMENT: 01:00 LMP N/A - Hysterectomy fc Historical: - Allergies: 01:12 Vicodin; fc - Home Meds: 01:12 aspirin 81 mg Oral TbEC 1 tab once daily [Active]; Fish Oil 1,000 mg oral cap daily fc [Active]; Xanax 0.25 mg Oral tab 1 tab q 6-8 hr prn [Active]; - PMHx: 01:12 acid reflux; Anemia; Anxiety; fc - PSHx: 01:12 Hysterectomy; ; fc - Immunization history:: Last tetanus immunization: unknown. - Social history:: Smoking status: Patient/guardian denies using tobacco. - Ebola Screening: : Patient negative for fever greater than or equal to 101.5 degrees Fahrenheit, and additional compatible Ebola Virus Disease symptoms Patient denies exposure to infectious person Patient denies travel to an Ebola-affected area in the 21 days before illness onset. ROS: 01:30 Constitutional: Negative for body aches, chills, fever, poor PO intake. cp 01:30 Eyes: Negative for injury, pain, redness, and discharge. cp 01:30 ENT: Negative for drainage from ear(s), ear pain, sore throat, difficulty swallowing, difficulty handling secretions, hoarseness. 01:30 Neck: Negative for pain with movement, pain at rest, stiffness, tenderness, bony tenderness. 01:30 Cardiovascular: Negative for chest pain, edema, palpitations. 01:30 Respiratory: Negative for cough, shortness of breath, wheezing. 01:30 Abdomen/GI: Negative for abdominal pain, vomiting, diarrhea, constipation, anorexia, black/tarry stool, rectal bleeding. 01:30 : Negative for urinary symptoms. 01:30 Skin: Negative for cellulitis, rash. 01:30 Neuro: Positive for near syncope, "tightness" in head, Negative for altered mental status, headache, speech changes, syncope, weakness. Exam: 01:35 Constitutional: The patient appears in no acute distress, alert, awake, cp non-diaphoretic, non-toxic, well developed, well nourished. 01:35 Head/Face: Normocephalic, atraumatic. Eyes: Pupils equal round and reactive to light, cp extra-ocular motions intact. Lids and lashes normal. Conjunctiva and sclera are non-icteric and not injected. Cornea within normal limits. Periorbital areas with no swelling, redness, or edema. ENT: Nares patent. No nasal discharge, no septal abnormalities noted. Tympanic membranes are normal and external auditory canals are clear. Oropharynx with no redness, swelling, or masses, exudates, or evidence of obstruction, uvula midline. Mucous membranes moist. 01:35 Neck: ROM/movement: is normal, is supple, without pain, no range of motions limitations, no nuchal rigidity, Lymph nodes: no appreciated lymphadenopathy. 01:35 Chest/axilla: Inspection: normal, Palpation: is normal, no crepitus, no tenderness. 01:35 Cardiovascular: Rate: normal, Rhythm: regular, Pulses: Pulses are 2+ in right radial artery and left radial artery. Heart sounds: murmur, not appreciated, rub, not appreciated, gallop, not appreciated, Edema: is not appreciated, JVD: is not appreciated. 01:35 Respiratory: the patient does not display signs of respiratory distress, Respirations: normal, no use of accessory muscles, no retractions, no splinting, no tachypnea, labored breathing, is not present, Breath sounds: are clear throughout, no decreased breath sounds, no stridor, no wheezing. 01:35 Abdomen/GI: Inspection: abdomen appears normal, Bowel sounds: active, all quadrants, Palpation: abdomen is soft and non-tender, in all quadrants. 01:35 Back: pain, is absent, ROM is normal. 01:35 Musculoskeletal/extremity: Exam is negative for decreased range of motion, deformity, injury. 01:35 Skin: cellulitis, is not appreciated, no rash present. 01:35 Neuro: Orientation: to person, place \\T\\ time. Mentation: is normal, Cerebellar function: is grossly normal, Motor: moves all fours, strength is normal, Sensation: no obvious gross deficits. 02:10 ECG was reviewed by the Attending Physician. cp Vital Signs: 01:00 BP 143 / 91; Pulse 79; Resp 18; Temp 99.0(O); Pulse Ox 99% on R/A; Weight 72.57 kg (R); fc Height 5 ft. 4 in. (162.56 cm) (R); Pain 0/10; 02:41 BP 143 / 91 Sitting; mg2 02:41 BP 142 / 93 Standing; mg2 02:41 BP 129 / 82 Supine; Pulse 70 RA; mg2 03:31 BP 129 / 89; Pulse 60; Resp 16; Pulse Ox 100% ; Pain 0/10; ao 04:30 BP 115 / 84; Pulse 62; Resp 16; Pulse Ox 100% ; ao 04:59 BP 126 / 82; Pulse 63; Resp 18; Pulse Ox 99% on R/A; Pain 0/10; ao 01:00 Body Mass Index 27.46 (72.57 kg, 162.56 cm) fc 02:41 lying mg2 MDM: 01:17 Patient medically screened. cp 02:00 Differential Diagnosis: cardiac arrhythmia, cerebrovascular accident, drug effect, GI cp bleed, transient ischemic attack. 03:00 Data reviewed: vital signs, nurses notes, lab test result(s), EKG. cp 03:00 Transition of care: After a detail discussion of the patient's case, care is cp transferred to Bayron Fung MD. 09/26 01:29 Order name: Basic Metabolic Panel cp 09/26 01:29 Order name: CBC with Diff; Complete Time: 02:27 cp 09/26 02:27 Interpretation: Normal except: WBC 6.2. cp 09/26 01:29 Order name: Ckmb cp 09/26 01:29 Order name: CPK cp 09/26 01:29 Order name: LFT's cp 09/26 01:29 Order name: Magnesium cp 09/26 01:29 Order name: NT PRO-BNP cp 09/26 01:29 Order name: PT-INR; Complete Time: 02:27 cp 09/26 02:49 Interpretation: Abnormal: PT 14.7. cp 09/26 01:29 Order name: Ptt, Activated; Complete Time: 02:27 cp 09/26 01:29 Order name: Troponin (emerg Dept Use Only); Complete Time: 02:48 cp 09/26 02:49 Interpretation: TROPED < 0.02; Reviewed. 09/26 01:29 Order name: XRAY Chest (1 view) cp 09/26 01:31 Order name: CT Head Brain wo Cont cp 09/26 02:14 Order name: Urine Dipstick--Ancillary (enter results) rg2 09/26 02:14 Order name: Urine --Ancillary (enter results) 2 09/26 01:29 Order name: Orthostatics; Complete Time: 02:40 cp 09/26 01:29 Order name: EKG; Complete Time: 01:29 cp 09/26 01:29 Order name: Cardiac monitoring; Complete Time: 01:54 cp 09/26 01:29 Order name: EKG - Nurse/Tech; Complete Time: 02:12 cp 09/26 01:29 Order name: IV Saline Lock; Complete Time: 01:54 cp 09/26 01:29 Order name: Labs collected and sent; Complete Time: 01:54 cp 09/26 01:29 Order name: O2 Per Protocol; Complete Time: 01:54 cp 09/26 01:29 Order name: O2 Sat Monitoring; Complete Time: 01:54 cp 09/26 01:29 Order name: Urine Dipstick-Ancillary (obtain specimen); Complete Time: 02:12 cp EC:10 Rate is 69 beats/min. Rhythm is regular. OK interval is normal. QRS interval is normal. cp QT interval is normal. No ST changes noted. Interpreted by me. Reviewed by me. Administered Medications: 02:12 Drug: NS 0.9% 1000 ml Route: IV; Rate: 1 bolus; Site: left forearm; mg2 02:33 Drug: Meclizine 25 mg Route: PO; mg2 Disposition: 09/26/17 03:57 Discharged to Home. Impression: near syncope. - Condition is Stable. - Discharge Instructions: Near-Syncope, [id number]. - Medication Reconciliation Form, Thank You Letter, Antibiotic Education, Prescription Opioid Use form. - Follow up: Bayron Fung MD; When: As needed; Reason: Recheck today's complaints, Continuance of care, Re-evaluation by your physician. - Problem is new. - Symptoms have improved. Signatures: Dispatcher [employer] EDMS Prabha Franco RN RN Shahbaz Harrington PA PA cp Ortiz, Alex RN RN ao Bayron Fung MD MD tw4 Glenroy Malloy RN RN mg2 Corrections: (The following items were deleted from the chart) 02:32 01:29 Urine Test ordered. mg2 05:08 03:57 09/26/2017 03:57 Discharged to Home. Impression: near syncope. Condition is ao Stable. Forms are Medication Reconciliation Form, Thank You Letter, Antibiotic Education, Prescription Opioid Use. Follow up: Bayron Fung; When: As needed; Reason: Recheck today's complaints, Continuance of care, Re-evaluation by your physician. Problem is new. Symptoms have improved. tw4
[2017-09-26 05:20] LABS: Urine Blood NEGATIVE (NEG); Urine Glucose NEGATIVE (NEG); Urine Protein NEGATIVE (NEG); Urine Specific Gravity 1.015 (1.005-1.030); Urine pH 6.5 (5.0-7.0)
--- NOTE | 2017-09-26 06:54 | RAD REPORT ---
EXAM DESCRIPTION: CT - Head Brain Wo Cont - 09/26/2017 6:46 am CLINICAL HISTORY: Dizziness, weakness, syncope A preliminary written report was provided at the time of the study, and the report was reviewed prio r to final dictation. COMPARISON: None. TECHNIQUE: Axial 5 mm thick images of the head were obtained without IV contrast. All CT scans are performed using dose optimization technique as appropriate and may include automated exposure control or mA/KV adjustment according to patient size. FINDINGS: No intracranial hemorrhage, mass, edema or shift of mid-line structures. No acute infarcti on changes seen. No abnormal extra-axial fluid collections. Ventricles are normal. Mastoid air cells and visualized portions of the paranasal sinuses are clear. No acute bony findings. IMPRESSION: Negative non-contrast CT head examination.
--- NOTE | 2017-09-26 07:28 | RAD REPORT ---
EXAM DESCRIPTION: RAD - Chest Single View - 09/26/2017 3:40 am CLINICAL HISTORY: Chest tightness, near syncope COMPARISON: September 23 TECHNIQUE: AP portable chest image was obtained 0202 hours . FINDINGS: Lungs are clear. Heart size is upper normal. No vascular engorgement or other findings of failure/ volume overload. No measurable pleural effusion and no pneumothorax. No gross bony abnormali ty seen. No acute aortic findings suspected. IMPRESSION: No acute cardiopulmonary process. No significant change from comparison.
--- NOTE | 2017-09-26 09:23 | EKG ---
Test Date: 2017-09-26 Test Time: 02:01:14 Paper Finisher: MEASUREMENT RESULTS: Intervals: Rate: 69 UT: 180 QRSD: 90 QT: 414 QTc: 443 [place]: P: 17 UT: 180 QRS: -30 T: 40 INTERPRETIVE STATEMENTS: Normal sinus rhythm Left axis deviation Abnormal ECG Compared to ECG 09/23/2017 03:57:41 Left-axis deviation now present Electronically Signed On 09-26-17 09:22:36 CDT by Fenrando Varghese
== END 2017-09-26 05:08 | disposition home or self-care (01) ==
LOC: ER 00:55
DX: R55 Syncope and collapse (principal); F41.9 Anxiety disorder, unspecified; D64.9 Anemia, unspecified; Z79.82 Long term (current) use of aspirin; Z88.5 Allergy status to narcotic agent
CPT/HCPCS: 36415; 70450; 71045; 80048; 80076; 81003; 81025; 82550; 82553; 83735; 83880; 84484; 85025; 85610; 85730; 93005; 99284; J7030

== ENCOUNTER 2017-11-14 22:19 | Emergency (ER) | payer SELFPAY ==
--- OUTSIDE RECORDS SUMMARY | 2017-11-14 22:27 | XMS REPORT | Continuity of Care Document ---
:1975 Author Organization Interface Problems Problem Status Onset Classification Date Comments Source Date Reported DIZZY/ WEAKNESS Active 11/01/19 [facility] 18 [place] CHEST PAIN Active 10/26/19 [facility] [place] [place] Ureterolithiasis 10/14/19 10/16/2017 [facility] 18 Renal colic 10/14/19 10/16/2017 [facility] 18 ABD PAIN AND BACKK Active 10/14/19 [facility] PAIN 18 [place] UTERINE Active 04/24/19 [place] FIBROIDS-D25.9/ [place] MENORRHAGIA-N92.0/ DYSMENORRHEA-N94 Discharge 03/17/20 03/20/2016 [facility] Diagnosis: Acute 16 URI Discharge 03/17/20 03/20/2016 [facility] Diagnosis: Acute 16 UTI FEVER Active 03/17/20 [facility] 16 [place] Discharge 08/03/19 08/06/2015 Diagnosis: Pain, 16 [place] arm, right ARM PAIN Active 08/03/19 [facility] [place] SHORTNESS OF BREATH Active 04/07/19 [facility] [place] CHEST PAIN, ANEMIA Active 11/06/19 15 [place] Discharge 11/04/19 11/06/2014 Diagnosis: 15 [place] Microcytic anemia Discharge 11/04/19 11/06/2014 Diagnosis: Chest 15 [place] pain VOMITING Active 03/07/20 13 [place] SOB Active 03/07/20 13 [place] MOUTH PAIN Active 04/03/19 13 [place] Hyperlipidemia Resolved Problem 10/16/2017 [facility] [place] None Resolved Problem 10/16/2017 [facility] [place] Anemia Active Problem 10/16/2017 [facility] Dysmenorrhea Active Problem 10/16/2017 [facility] Menorrhagia Active Problem 10/16/2017 [facility] [place] Uterine fibroid Active Problem 10/16/2017 [facility] [place] None Resolved Problem 05/05/2016 [facility] [place] [place] Medications Medication Details Route Status Patient Ordering Order Source Instructions Provider Date ketOROLAC 30 30 mg, Inactive mg/mL injectable Route: IVP, 2017 [place] solution Drug form: INJ, ONCE, Dosing Weight 76, kg, Priority: STAT, Start date: 10/13/17 12:11:00 CDT, Stop date: 10/13/17 12:11:00 CDT naproxen 500 mg 500 mg=1 Active oral tablet tab, PO, 2017 [place] Q12H, PRN Pain, X 10 day, # 20 tab, 0 Refill(s) Morphine 2 mg, 1 mL, Inactive Route: IVP, 2017 [place] Drug form: SOLN, ONCE, Dosing Weight 76, kg, Priority: STAT, Start date: 10/13/17 9:54:00 CDT, Stop date: 10/13/17 9:54:00 CDT Ondansetron 4 mg, 2 mL, Inactive Route: IVP2017 [place] Drug form: INJ, ONCE, Dosing Weight 76, kg, Priority: STAT, Start date: 10/13/17 9:54:00 CDT, Stop date: 10/13/17 9:54:00 CDTNotes: (Same as: Zofran) MEDICATION WASTE Product Size: 4 mg Product Wasted: ___ mg Sodium Chloride 1,000 mL, Inactive 0.9% (Bolus) IV 1000 ml/hr, 2017 [place] Infuse Over: 1 hr, Route: IV, 1,000, Drug form: INJ, ONCE, Priority: STAT, Dosing Weight 76 kg, Start date: 10/13/17 9:54:00 CDT, Stop date: 10/13/17 9:54:00 CDT Saline Flush 10 mL, Inactive 0.9% Route: IVP2017 [place] Drug Form: INJ, Dosing Weight 76, kg, PRN, PRN Line Flush, Start date: 10/13/17 9:54:00 CDT, Duration: 30 day, Stop date: 11/12/17 9:53:00 CDTNotes: (Same as: BD Posiflush) tramadol 50 mg=1 tab, Active [place] hydrochloride 50 PO, Q6H, PRN [place] Oral Tablet Pain, X 10 day, # 40 tab, 0 Refill(s) Mylicon 160 mg, 2 No Longer Sugar tab, Route: Active 2016 [facility] CHEW, Drug form: CHEWTAB, TID, Dosing Weight 75, kg, Start date: 05/01/16 13:00:00 [employer], Duration: 30 day, Stop date: 05/31/16 9:00:00 CSTNotes: (Same as: Mylicon) Ondansetron 4 mg, 2 mL, No Longer [place] Route: IVP, Active 2016 [facility] Drug form: INJ, Q8H, Dosing Weight 75, kg, PRN Nausea & Vomiting, Start date: 05/01/16 10:57:00 [employer], Duration: 30 day, Stop date: 05/31/16 10:56:00 CSTNotes: (Same as: Zofran) MEDICATION WASTE Product Size: 4 mg Product Wasted: ___ mg Morphine 2 mg, 1 mL, No Longer Sugar Route: IVP, Active 2016 [facility] Drug form: INJ, Q4H, Dosing Weight 75, kg, PRN Pain Score 7-10, Start date: 05/01/16 10:57:00 [employer], Duration: 30 day, Stop date: 05/31/16 10:56:00 CSTNotes: (Same as:MORPhine Sulfate) Docusate 100 mg, 1 No Longer Sugar cap, Route: Active 2016 [facility] PO, Drug form: CAP, BID, Dosing Weight 75, kg, PRN as needed for constipation , Start date: 05/01/16 10:57:00 [employer], Duration: 30 day, Stop date: 05/31/16 10:56:00 CSTNotes: (Same as: Colace) (Do Not Crush) Diphenhydramine 25 mg, 1 No Longer [place] cap, Route: Active [place] PO, Drug form: CAP, Bedtime, Dosing Weight 75, kg, PRN Insomnia, Start date: 05/01/16 10:57:00 [employer], Duration: 30 day, Stop date: 05/31/16 10:56:00 CSTNotes: (Same as: Benadryl) Calcium Chloride 1,000 mL, No Longer Sugar 0.0014 MEQ/ML / Rate: 125 Active 2016 [facility] Potassium ml/hr, Chloride 0.004 Infuse over: MEQ/ML / Sodium 8 hr, Route: Chloride 0.103 IV, Dosing MEQ/ML / Sodium Weight 75 Lactate 0.028 kg, Total MEQ/ML Volume: Injectable 1,000, Start Solution date: 05/01/16 10:57:00 [employer], Duration: 30 day, Stop date: 05/31/16 10:56:00 [employer] ondansetron Route: IV, Inactive [place] (ANES) Drug form: [place] INJ, ONCE, Stop date: 05/01/16 10:05:00 [employer] glycopyrrolate Route: IV, Inactive [place] (ANES) Drug form: [place] INJ, ONCE, Stop date: 05/01/16 10:05:00 [employer] neostigmine Route: IV, Inactive [place] (ANES) Drug form: [place] INJ, ONCE, Stop date: 05/01/16 10:05:00 [employer]IST ketOROLAC (ANES) IV, ONCE Inactive [place] Hydromorphone 0.5 mg, 0.25 Inactive Sugar mL, Route: 2016 [facility] IVP, Drug form: INJ, Q5Min, Dosing Weight 75, kg, PRN Pain Score 7-10, Start date: 05/01/16 10:01:00 [employer], Duration: 4 doses or times, Stop date: Limited # of timesNotes: Same as Dilaudid Flumazenil 0.2 mg, 2 Inactive [place] mL, Route: [place] IVP, Drug form: INJ, PRN, Dosing Weight 75, kg, PRN Benzodiazepi ne Reversal, Initial dose, Start date: 05/01/16 10:01:00 [employer], Duration: 30 day, Stop date: 05/31/16 10:00:00 CSTNotes: (Same as: Romazicon) Naloxone 0.4 mg, 1 Inactive [place] mL, Route: [place] IVP, Drug form: INJ, Q2MIN, Dosing Weight 75, kg, PRN Narcotic Reversal, Start date: 05/01/16 10:01:00 [employer], Duration: 8 doses or times, Stop date: Limited # of timesNotes: Same as Narcan Ondansetron 4 mg, 2 mL, Inactive [place] Route: IVP2016 [facility] Drug form: INJ, ONCE, Dosing Weight 75, kg, PRN Nausea & Vomiting, Start date: 05/01/16 10:01:00 CSTNotes: (Same as: Zofran) MEDICATION WASTE Product Size: 4 mg Product Wasted: ___ mg Morphine 2 mg, 1 mL, Inactive [place] Route: IVP2016 [facility] Drug form: INJ, Q5Min, Dosing Weight 75, kg, PRN Pain Score 4-6, Start date: 05/01/16 10:01:00 [employer], Duration: 5 doses or times, Stop date: Limited # of timesNotes: (Same as:MORPhine Sulfate) Acetaminophen 1,000 mg, Inactive Sugar Route: IV2016 [facility] Drug form: INJ, ONCE, Dosing Weight 74.091, kg, PRN Pain Score 1-3, Start date: 05/01/16 10:01:00 [employer], Duration: 1 doses or times, Stop date: Limited # of times Ketorolac 30 mg, 1 mL, Inactive [place] Route: IVP2016 [facility] Drug form: INJ, ONCE, Dosing Weight 75, kg, Start date: 05/01/16 10:01:00 [employer], Duration: 1 doses or times, Stop date: 05/01/16 10:01:00 CSTNotes: (Same as:Toradol) IV bolus must be given >15 seconds. Give IM administrati on slowly and deeply into the muscle. Not for use > 4 days MEDICATION WASTE Product Size: 30 mg Product Wasted: ___ mg Calcium Chloride 1,000 mL, Inactive Sugar 0.0014 MEQ/ML / Rate: 125 2016 [facility] Potassium ml/hr, Chloride 0.004 Infuse over: MEQ/ML / Sodium 8 hr, Route: Chloride 0.103 IV, Dosing MEQ/ML / Sodium Weight 75 Lactate 0.028 kg, Total MEQ/ML Volume: Injectable 1,000, Start Solution date: 05/01/16 10:01:00 [employer], Duration: 30 day, Stop date: 05/31/16 10:00:00 [employer]IST Labetalol 10 mg, 2 mL, Inactive [place] Route: IVP, [place] Drug form: INJ, Q5Min, Dosing Weight 75, kg, PRN Elevated BP, Start date: 05/01/16 10:01:00 [employer], Duration: 5 doses or times, Stop date: Limited # of timesNotes: (Same as: Normodyne, Trandate) Push over 2 minutes Give bolus over 2-3 minutes. acetaminophen Route: IV, Inactive 05/01/ MH [place] (ANES) (ANES) Drug form: [place] INJ, Start date: 05/01/16 9:38:00 [employer], Stop date: 05/01/16 10:38:00 [employer] hydromorphone Route: IV, Inactive 05/01/ [facility] [place] (ANES) Drug form: [place] INJ, ONCE, Stop date: 05/01/16 9:02:00 [employer] dexamethasone Route: IV, Inactive 05/01/ [facility] [place] (ANES) Drug form: [place] INJ, ONCE, Stop date: 05/01/16 8:37:00 [employer] fentaNYL (ANES) Route: IV, Inactive 05/01/ [facility] [place] Drug form: [place] INJ, ONCE, Stop date: 05/01/16 8:37:00 [employer]IST lidocaine (ANES) Route: IV, Inactive 05/01/ [facility] [place] Drug form: [place] INJ, ONCE, Stop date: 05/01/16 8:37:00 [employer]IST propofol (ANES) Route: IV, Inactive 05/01/ [facility] [place] Drug form: [place] INJ, ONCE, Stop date: 05/01/16 8:37:00 [employer]IST midazolam (ANES) Route: IV, Inactive 05/01/ [facility] [place] Drug form: [place] SOLN, ONCE, Stop date: 05/01/16 8:37:00 [employer] rocuronium Route: IV, Inactive 05/01/ [facility] [place] (ANES) Drug form: [place] INJ, ONCE, Stop date: 05/01/16 8:37:00 [employer] metoclopramide Route: IV, Inactive 05/01/ [facility] [place] (ANES) Drug form: [place] INJ, ONCE, Stop date: 05/01/16 8:37:00 [employer] famotidine Route: IV, Inactive 02/06/ [facility] [place] (ANES) Drug form: [place] INJ, ONCE, Stop date: 05/01/16 8:22:00 [employer] phenylephrine Route: IV, Inactive [place] (ANES) Drug form: [place] INJ, ONCE, Stop date: 05/01/16 8:22:00 FL[employer]IST ceFAZolin (ANES) Route: IV, Inactive [place] Drug form: [place] INJ, ONCE, Stop date: 05/01/16 8:11:00 FLIGHT CONTR[employer] SPECIALIST LR 1000 mL INJ Route: IV, Inactive [place] (ANES) Total 2016 [place] Volume: 1,000, Start date: 05/01/16 7:35:00 FLIGHT [employer] SPECIALIST, Stop date: 05/01/16 8:35:00 FL[employer]IST Calcium Chloride 1,000 mL, Inactive [place] 0.0014 MEQ/ML / Rate: 25 [place] Potassium ml/hr, Chloride 0.004 Infuse over: MEQ/ML / Sodium 40 hr, Chloride 0.103 Route: IV, MEQ/ML / Sodium Dosing Lactate 0.028 Weight MEQ/ML 74.091 kg, Injectable Total Solution Volume: 1,000, Start date: 05/01/16 6:57:00 [employer], Duration: 30 day, Stop date: 05/31/16 6:56:00 FL[employer] SPECIALIST ceFAZolin 2 gm, 100 Inactive [place] mL, Route: [place] IVPB, Drug form: INJ, ONCALL, Start date: 05/01/16 6:00:00 [employer]IST, Duration: 1 doses or times, Stop date: 05/01/16 23:00:00 CSTNotes: Same as: Ancef BD Normal Saline 10 mL, No Longer [place] Flush Route: IV, Active 2016 Drug Form: INJ, PRN, PRN Line Flush, Start date: 05/01/16 6:00:00 [employer]IST, Duration: 30 day, Stop date: 05/31/16 5:59:00 CSTNotes: (Same as: BD Posiflush) Esomeprazole 20 20 mg=1 cap, Active 04/24/ [place] Enteric PO, Daily, 0 2016 Coated Capsule Refill(s) [Nexium] ferrous sulfate 325 mg=1 No Longer [place] 325 mg oral tab, PO, Active [place] enteric coated Daily, 0 tablet Refill(s) Sulfamethoxazole 1 tab, PO, Active 03/18/ 800 MG / BID, X 7 2015 [place] Trimethoprim 160 day, # 14 MG Oral Tablet tab, 0 [Bactrim] Refill(s) Motrin 800 mg, Inactive Route: PO, 2015 [place] Drug form: TAB, ONCE, Dosing Weight 72.727, kg, Priority: STAT, Start date: 03/17/16 16:27:00 [employer]IST, Stop date: 03/17/16 16:27:00 [employer]IST Sodium Chloride 1,000 mL, Inactive 0.154 MEQ/ML 2,000 ml/hr, 2015 [place] Injectable Infuse Over: Solution 30 minutes, Route: IV, ONCE, Priority: STAT, Dosing Weight 72.727 kg, Start date: 03/17/16 16:27:00 FL[employer]IST, Duration: 1 doses or times, Stop date: 03/17/16 16:27:00 FL[employer]IST Saline Flush 10 mL, Inactive 0.9% Route: IVP, 2015 [place] Drug Form: INJ, Dosing Weight 72.727, kg, PRN, PRN Line Flush, Start date: 03/17/16 16:27:00 FL[employer] SPECIALIST, Duration: 30 day, Stop date: 04/16/16 16:26:00 CSTNotes: (Same as: BD Posiflush) Acetaminophen 1 tab, PO, Active 300 MG / Codeine Q6H, PRN 2015 [facility] Phosphate 30 MG Pain, X 7 Oral Tablet day, # 28 [Tylenol with tab, 0 Codeine #3] Refill(s) Cyclobenzaprine 10 mg=1 tab, Active 08/02/ hydrochloride 10 PO, TID, PRN 2015 [place] Oral Tablet for spasm, X [Flexeril] 10 day, # 30 tab, 0 Refill(s) acetaminophen-co 1 tab, Inactive deine #3 Route: PO, 2015 [facility] Drug Form: TAB, Dosing Weight 72.727, kg, ONCE, STAT, Start date: 08/03/15 10:03:00 CDT, Stop date: 08/03/15 10:03:00 CDTNotes: Do not exceed 4gm/day of acetaminophe n. (Same as: Tylenol with Codeine # 3) cyclobenzaprine 10 mg, 1 Inactive tab, Route: 2015 [facility] PO, Drug form: TAB, ONCE, Dosing Weight 72.727, kg, Priority: STAT, Start date: 08/03/15 10:03:00 CDT, Stop date: 08/03/15 10:03:00 CDTNotes: (Same As: Flexeril) Aspirin 81 MG 81 mg=1 tab, Active Enteric Coated PO, Daily, # 2016 [facility] Tablet 90 tab, 3 Refill(s), other Aspirin 325 MG 325 mg, 1 Inactive Enteric Coated tab, Route: 2015 [facility] Tablet PO, Drug form: ECTAB, Daily, Dosing Weight 80.455, kg, Start date: 04/08/15 9:00:00, Duration: 30 day, Stop date: 05/07/15 9:00:00Notes : (Do Not Crush) Do not crush or chew. Saline Flush 10 ml, No Longer 0.9% Route: IVP, Active 2015 [facility] Drug Form: INJ, Dosing Weight 80.455, kg, Q12H, Start date: 04/07/15 21:00:00, Duration: 30 day, Stop date: 05/07/15 9:00:00Notes : (Same as: BD Posiflush) Sodium Chloride 1,000 mL, No Longer 0.154 MEQ/ML Rate: 125 Active 2015 [facility] Injectable ml/hr, Solution Infuse over: 8 hr, Route: IV, Dosing Weight 80.455 kg, Total Volume: 1,000, Start date: 04/07/15 19:28:00, Duration: 30 day, Stop date: 05/07/15 19:27:00 metoprolol 25 mg, 1 No Longer tartrate tab, Route: Active 2015 [facility] PO, Drug form: TAB, Q6H, Dosing Weight 80.455, kg, Start date: 04/07/15 18:00:00, Duration: 30 day, Stop date: 05/07/15 12:00:00Note s: (Same as: Lopressor) Saline Flush 10 ml, No Longer 0.9% Route: IVP, Active 2015 [facility] Drug Form: INJ, Dosing Weight 80.455, kg, PRN, PRN Line Flush, Start date: 04/07/15 14:15:00, Duration: 30 day, Stop date: 05/07/15 14:14:00Note s: (Same as: BD Posiflush) Nitroglycerin 0.4 mg, 1 No Longer tab, Route: Active 2015 [facility] SL, Drug form: TAB, Q5Min, Dosing Weight 80.455, kg, PRN Chest Pain, Start date: 04/07/15 14:15:00, Duration: 3 doses or times, Stop date: Limited # of timesNotes: (Same as:Nitroquic k, Nitrostat) "Do Not Crush" Sublingual tablet Sodium Chloride 1,000 mL, Inactive 0.154 MEQ/ML 1,000 ml/hr, 2015 [facility] Injectable Infuse Over: Solution 1 hr, Route: IV, ONCE, Priority: STAT, Dosing Weight 80.455 kg, Start date: 04/07/15 9:37:00, Duration: 1 doses or times, Stop date: 04/07/15 9:37:00 Nitroglycerin 0.4 mg, 1 Inactive 0.4 MG tab, Route: 2015 [facility] Sublingual SL, Drug Tablet form: TAB, Q5Min, Dosing Weight 80.455, kg, Start date: 04/07/15 7:25:00, Duration: 3 doses or times, Stop date: 04/07/15 7:35:00Notes : (Same as:Nitroquic k, Nitrostat) "Do Not Crush" Sublingual tablet Aspirin 324 mg, 4 Inactive tab, Route: 2015 [facility] PO, Drug form: CHEWTAB, ONCE, Dosing Weight 80.455, kg, Priority: STAT, Start date: 04/07/15 7:23:00, Stop date: 04/07/15 7:23:00Notes : Take with food. Saline Flush 10 mL, No Longer 0.9% Route: IVP, Active 2015 [facility] Drug Form: INJ, Dosing Weight 80.455, kg, PRN, PRN Line Flush, Start date: 04/07/15 7:23:00, Duration: 30 day, Stop date: 05/07/15 7:22:00Notes : (Same as: BD Posiflush) Miralax 17 gm, 1 No Longer pkt, Route: Active 2014 [facility] PO, Drug form: PWDR, Daily, Dosing Weight 71.364, kg, Priority: NOW, Start date: 11/06/14 18:38:00, Duration: 30 day, Stop date: 12/06/14 9:00:00Notes : Dissolve in 8 oz of water or juice. (Same as: Miralax) Tylenol 650 mg, 2 No Longer tab, Route: Active 2014 [facility] PO, Drug form: TAB, Q6H, Dosing Weight 71.364, kg, PRN Pain Score 1-3, Start date: 11/06/14 18:35:00, Duration: 30 day, Stop date: 12/06/14 18:34:00Note s: Do not exceed 4 gm/day. (Same as: Tylenol) Sulfamethoxazole 1 tab, PO, Active 800 MG / BID, X 5 2014 [facility] Trimethoprim 160 day, # 10 MG Oral Tablet tab, 0 [Bactrim] Refill(s) ferrous sulfate 325 mg, PO, Active 325 MG Oral TID, # 90 2014 [facility] Tablet tab, 1 Refill(s) ferrous sulfate 325 mg, 1 No Longer tab, Route: Active 2014 [facility] PO, Drug form: ECTAB, TID, Dosing Weight 71.364, kg, Priority: NOW, Start date: 11/06/14 9:50:00, Duration: 30 day, Stop date: 12/06/14 9:00:00Notes : Give with food. "Do Not Crush" nitroglycerin 0.4 mg, 1 No Longer 0.4 mg tab, Route: Active 2014 [facility] sublingual SL, Drug tablet form: TAB, Q5Min, PRN Chest Pain, Start date: 11/05/14 20:34:00, Duration: 30 day, Stop date: 12/05/14 20:33:00Note s: (Same as:Nitroquic k, Nitrostat) "Do Not Crush" Sublingual tablet atropine 0.5 mg, 5 No Longer mL, Route: Active 2014 [facility] IVP, Drug form: INJ, PRN, PRN Bradycardia, Start date: 11/05/14 20:34:00, Duration: 30 day, Stop date: 12/05/14 20:33:00 Saline Flush 10 ml, No Longer 0.9% Route: IVP, Active 2014 [facility] Drug Form: INJ, Dosing Weight 71.364, kg, PRN, PRN Line Flush, Start date: 11/05/14 20:11:00, Duration: 30 day, Stop date: 12/05/14 20:10:00Note s: Same as: BD Posiflush Sterile Sulfamethoxazole 1 tab, No Longer 800 MG / Route: PO, Active 2014 [facility] Trimethoprim 160 Drug Form: MG Oral Tablet TAB, Dosing [Bactrim] Weight 71.364, kg, BID, Start date: 11/05/14 17:00:00, Duration: 30 day, Stop date: 12/05/14 9:00:00Notes : One DS tablet=trime thoprim 160mg + sulfamethoxa zole 800 mg Dose based on trimethoprim component On empty stomach with a glass of water. 1 hr before meals (Same As: Bactrim DS, Septra DS) Ceftriaxone 1 gm, Route: Inactive IVPB, Drug 2014 [facility] form: PDR/INJ, ONCE, Dosing Weight 71.364, kg, Priority: STAT, Start date: 11/05/14 15:52:00, Stop date: 11/05/14 15:52:00 Ketorolac 30 mg, Inactive Route: IVP, 2014 [facility] Drug form: INJ, ONCE, Dosing Weight 71.364, kg, Priority: STAT, Start date: 11/05/14 15:39:00, Stop date: 11/05/14 15:39:00 Morphine 2 mg, Route: Inactive IVP, Drug 2014 [facility] form: INJ, ONCE, Dosing Weight 71.364, kg, Priority: STAT, Start date: 11/05/14 15:20:00, Stop date: 11/05/14 15:20:00 Aspirin 324 mg, Inactive Route: PO, 2014 [facility] ONCE, Dosing Weight 71.364, kg, Priority: STAT, Start date: 11/05/14 14:58:00, Stop date: 11/05/14 14:58:00 Saline Flush 10 mL, No Longer 0.9% Route: IVP, Active 2014 [facility] Drug Form: INJ, Dosing Weight 71.364, kg, PRN, PRN Line Flush, Start date: 11/05/14 14:58:00, Duration: 30 day, Stop date: 12/05/14 14:57:00Note s: Same as: BD Posiflush Sterile ferrous sulfate 325 mg=1 Active 325 mg oral tab, PO, 2014 [facility] enteric coated Daily, # 30 tablet tab, 0 Refill(s) Acetaminophen 1 - 2 tab, No Longer 300 MG / Codeine PO, Q6H, PRN Active 2014 [facility] Phosphate 30 MG Pain, X 2 Oral Tablet day, # 20 [Tylenol with tab, 0 Codeine #3] Refill(s) Acetaminophen 1 tab, Inactive 300 MG / Codeine Route: PO, 2014 [facility] Phosphate 30 MG Drug Form: Oral Tablet TAB, Dosing [Tylenol with Weight 77, Codeine #3] kg, ONCE, STAT, Start date: 11/03/14 10:14:00, Stop date: 11/03/14 10:14:00 GI cocktail 30 mL, Inactive Route: PO, 2014 [facility] Drug Form: SUSP, Dosing Weight 77, kg, ONCE, STAT, Start date: 11/03/14 8:51:00, Stop date: 11/03/14 8:51:00Notes : G.I. Cocktail=ant acid with simethicone 22.5 mL - lidocaine viscous 7.5 mL Morphine 2 mg, 1 mL, Inactive Route: IVP, 2014 [facility] Drug form: INJ, ONCE, Dosing Weight 77, kg, Priority: STAT, Start date: 11/03/14 8:51:00, Stop date: 11/03/14 8:51:00Notes : (Same as:MORPhine Sulfate) Aspirin 324 mg, 4 Inactive tab, Route: 2014 [facility] PO, Drug form: CHEWTAB, ONCE, Dosing Weight 77, kg, Priority: STAT, Start date: 11/03/14 8:50:00, Stop date: 11/03/14 8:50:00Notes : Take with food. Saline Flush 10 mL, Inactive 0.9% Route: IVP, 2014 [facility] Drug Form: INJ, Dosing Weight 77, kg, PRN, PRN Line Flush, Start date: 11/03/14 8:50:00, Duration: 30 day, Stop date: 12/03/14 8:49:00Notes : (Same as: BD Posiflush) ibuprofen 600 mg 600 mg=1 [facility] oral [facility] tab, PO, 2012 Q6H, as needed for fever, take with food, # 30 tab, 0 Refill(s)azam e with food Tessalon Perles 100 mg=1 Active [facility] 100 mg oral cap, PO, 2012 capsule TID, # 21 cap, 0 Refill(s) ondansetron 4 mg 4 mg=1 tab, Active [facility] oral tablet, PO, TID, 2012 disintegrating Nausea / Vomiting, Dissolve tab under tongue, # 10 tab, 0 Refill(s)Dis solve tab under tongue ibuprofen 600 mg, 1 Inactive [facility] tab, Route: 2012 [facility] PO, Drug form: TAB, ONCE, Dosing Weight 72.727, kg, Priority: STAT, Start date: 03/07/13 18:19:00, Stop date: 03/07/13 18:19:00(Madi e as: Motrin) "Do Not Crush" Take with food. Tylenol 975 mg, 3 Inactive [facility] tab, Route: 2012 [facility] PO, Drug form: TAB, ONCE, Dosing Weight 72.727, kg, Priority: STAT, Start date: 03/07/13 17:29:00, Stop date: 03/07/13 17:29:00Do not exceed 4 gm/day. (Same as: Tylenol) ondansetron 4 mg 4 mg, 1 tab, Inactive [facility] oral tablet, Route: PO, 2012 disintegrating Drug form: TABDIS, ONCE, Dosing Weight 72.727, kg, Priority: STAT, Start date: 03/07/13 15:40:00, Stop date: 03/07/13 15:40:00(Madi e as: Zofran ODT) Zithromax Z-Onel 250 mg=1 Active [facility] 250 mg oral tab, PO, 2012 tablet Daily, TAKE 2 TABLETS ON DAY 1; TAKE 1 TABLET ON DAYS 2 - 5, # 1 Pack, 0 Refill(s)AZAM E 2 TABLETS ON DAY 1; TAKE 1 TABLET ON DAYS 2 - 5 Naprosyn 500 mg 500 mg=1 Active [facility] oral tablet tab, PO, 2012 BID, for pain, # 20 tab, 0 Refill(s) Zofran ODT 4 mg 4 mg=1 tab, Active [facility] oral tablet, PO, BID, 2012 disintegrating Nausea and Vomiting, Dissolve tab under tongue, # 10 tab, 0 Refill(s)Dis solve tab under tongue Tessalon 200 mg 200 mg=1 Active [facility] oral capsule cap, PO, 2012 TID, # 21 cap, 0 Refill(s) morphine Sulfate 4 mg, 1 mL, Inactive [facility] Route: IVP2012 [facility] Drug form: INJ, ONCE, Dosing Weight 72.727, kg, Priority: STAT, Start date: 03/07/13 9:37:00, Stop date: 03/07/13 9:37:00(Same as:MORPhine Sulfate) Zofran 4 mg, 2 mL, [facility]: IV[facility] Drug form: INJ, ONCE, Dosing Weight 72.727, kg, Priority: STAT, Start date: 03/07/13 9:37:00, Stop date: 03/07/13 9:37:00(Same as: Zofran) acetaminophen 650 mg, 2 Inactive [facility] tab, Route: 2012 PO, Drug form: TAB, ONCE, Dosing Weight 72.727, kg, Start date: 03/07/13 9:37:00, Stop date: 03/07/13 9:37:00Do not exceed 4 gm/day. (Same as: Tylenol) ceftriaxone + 1 gm, Route: Inactive [facility] Sodium Chloride IVPB, Drug 2012 [facility] 0.9% IV 100 mL form: PDR/INJ, ONCE, Dosing Weight 72.727, kg, Priority: STAT, Start date: 03/07/13 9:37:00, Stop date: 03/07/13 9:37:00(Same As: Rocephin). Use with 100ml NS mini-bag PLUS and infuse over 30 min Sodium Chloride 1,000 mL, Inactive Poff[place]barger 0.9% (Bolus) IV Rate: 1,000 2012 1,000 mL ml/hr, Infuse over: 1 hr, Route: IV, Dosing Weight 72.727 kg, Total Volume: 1,000, Priority: STAT, Start date: 03/07/13 9:37:00, Duration: 1 doses or times, Stop date: 03/07/13 10:36:00 Saline Flush 5 mL, Route: [facility], Drug 2012 Form: INJ, Dosing Weight 72.727, kg, PRN, PRN Line Flush, Start date: 03/07/13 9:37:00, Duration: 30 day, Stop date: 04/06/13 9:36:00(Same as: BD Posiflush) acetaminophen 1,000 mg, 2 Inactive Cesta tab, Route: 2012 PO, Drug form: TAB, ONCE, Dosing Weight 72.727, kg, Start date: 03/07/13 9:19:00, Stop date: 03/07/13 9:19:00Max acetaminophe n 4000 mg/day (4 gm/day). (Same as: Tylenol Extra Strength) Ultram 50 mg 50 mg, 1 PO Active Eliezer II oral tablet tab, PO, 2012 Q4H, PRN, 20 tab, pain, Substitution Allowed amoxicillin 500 500 mg, 1 PO Active Eliezer II mg oral tablet tab, PO, 2012 TID, 30 tab, Substitution Allowed, TAB Allergies, Adverse Reactions, Alerts Substance Category Reaction Severity Reaction Status Date Comments Source type Reported Vicodin Assertion pass out Drug Active MH allergy [place] Immunizations Immunization Date Given Site Status Last Updated Comments Source Results Order Name Results Value Reference Date Interpretation Comments Source Range Chest Chest 1view Clinical Indication: CVA - cva 10/31 - [facility] 1view DX DX - [place] Comparison: 10/25/2017 Read by: Delvin Montanez MD Dictated Date/time: 10/31/17 15:23 FINDINGS: Single AP view of the chest is submitted for interpretation. Electronically Signed by: Delvin Montanez MD 15:23 FINAL REPORT The lungs are clear and there are no effusions. There is no visible pneumothorax. Cardiomediastinal contours are within normal limits. No gross bony normalities are identified. IMPRESSION: 1. No radiographic evidence of acute cardiopulmonary process. SL: [id number] Brain Brain Stroke Patient Name: ATIF YOUNG 10/31 - [facility] Stroke wo wo contrast - [place] contrast CT : 1975; Age: 42 years y/o Female CT MR: [id number] Read by: Latha Pedroza Dictated Date/time: 10/31/17 15:26 Electronically Signed by: Latha Pedroza 10/31/17 15:29 FINAL REPORT Study: Brain Stroke wo contrast CT 10/31/2017 3:09 PM CDT Ordering Physician: Asia Shaikh Clinical Indication: Altered level of consciousness - ams; Comparison: None TECHNIQUE: CT images were obtained from the foramen magnum to the vertex without the use of intravenous contrast on a multidetector CT. Coronal and sagittal reconstructions were obtained. CT imaging performed at this location utilizes radiation dose optimization techniques which include one or more of the following: -Automated exposure control -Adjustment of the mA and/or kV according to patient size -Use of iterative reconstruction technique CT Radiation Dose DLP 1014 mGy-cm FINDINGS: There is no evidence of acute intracranial hemorrhage, subacute territorial infarct, mass effect, midline shift, extra-axial fluid collection, hydrocephalus or other acute abnormalities. The kendall-white differentiation is well-maintained. The ventricles, basilar cisterns and posterior fossa are unremarkable. The calvarium, paranasal sinuses and mastoids are unremarkable. IMPRESSION: No CT evidence of acute intracranial process. Findings are discussed with Dr. Shaikh in the ED at 3:28 PM on 10/31/2017. If there is further concern for intracranial pathology or acute stroke, further assessment with an MRI of the brain should be considered. SL: [id number] Abdomen Abdomen RUQ RIGHT UPPER QUADRANT ABDOMINAL ULTRASOUND DATED 10/26 - RUQ US US /2017 [facility] CLINICAL INDICATION: Acute epigastric abdominal pain. Nausea and vomiting. Read by: Max Andersen MD Dictated Date/time: 10/26/17 01:50 Electronically Signed by: Max Andersen MD 10/26/17 01:52 FINAL REPORT COMPARISON: CT abdomen dated 10/13/2017 TECHNIQUE: Sonographic evaluation of the right upper quadrant was performed with supplemental color and pulsed Doppler. FINDINGS: LIVER: The liver is normal in size and contour and maintains normal parenchymal echotexture. GALLBLADDER: The gallbladder is normally distended without evidence of gallstones. There is no evidence of gallbladder wall thickening or pericholecystic fluid to suggest acute inflammation. The sonographic Reddy's sign was reported as negative. BILE DUCTS: The common bile duct is normal in caliber measuring 5 mm. PANCREAS: The visualized pancreas appears normal. RIGHT KIDNEY: The right kidney measures 10.6 cm in length. The right kidney is normal in size and contour and maintains normal cortical echotexture. There is no evidence of hydronephrosis, nephrolithiasis, mass lesion or perinephric fluid collection. Additional comments: No free intraperitoneal fluid is identified in the right upper quadrant. The inferior vena cava appears patent. The proximal abdominal aorta appears normal in caliber. IMPRESSION: 1. No sonographic evidence of cholelithiasis or acute cholecystitis. SL:[id number] Chest 2 Chest 2 Clinical Indication: - chest pain; 10/25 - views DX views DX /2017 - [facility] Comparison: None Read by: Ruddy Doe MD Dictated Date/time: 10/25/17 23:57 Electronically Signed by: Ruddy Doe MD 10/25/17 23:58 FINAL REPORT FINDINGS: The PA and lateral chest radiographs shows normal lung volumes without interstitial or airspace opacities, pleural effusions or pneumothorax. The heart size and pulmonary vasculature are normal. The trachea is midline. There are no clinically significant osseous abnormalities noted. IMPRESSION: No chest radiographic evidence of acute cardiopulmonary disease. SL: YE CHEM PANEL eGFR 101 10/13 Result Comment: The eGFR is calculated using the CKD-EPI formula. In most young, healthy individuals the eGFR will be >90 mL/ min/1.73m2. The eGFR declines with age. An eGFR of 60-89 may be normal in mL/min/1. some populations, particularly the elderly, for whom the CKD-EPI formula has not been extensively validated. Use of the eGFR is not recommended in the following populations: [place] [address] Individuals with unstable creatinine concentrations, including patients and those with serious co-morbid conditions. Patients with extremes in muscle mass or diet. The data above are obtained from the National Kidney Disease Education Program (NKDEP) which additionally recommends that when the eGFR is used in patients with extremes of body mass index for purposes of drug dosing, the eGFR should be multiplied by the estimated BMI. CHEM PANEL Bili Total 0.4 mg/dL 0.2 - 1.3 10/13 [place] CHEM PANEL Alk Phos 83 unit/L 39 - 136 10/13 [place] CHEM PANEL AST 14 unit/L 0 - 37 10/13 [place] CHEM PANEL ALT 22 unit/L 0 - 65 10/13 [place] CHEM PANEL Glucose Lvl 125 mg/dL 70 - 99 10/13 [place] CHEM PANEL A/G Ratio 0.8 0.7 - 1.6 10/13 [place] CHEM PANEL Globulin 4.5 g/dL 2.7 - 4.2 10/13 [place] CHEM PANEL B/C Ratio 8 6 - 25 10/13 [place] CHEM PANEL Calcium Lvl 10.2 mg/dL 8.5 - 10.5 10/13 [place] CHEM PANEL Total 7.9 g/dL 6.4 - 8.4 10/13 Protein [place] CHEM PANEL Albumin Lvl 3.4 g/dL 3.5 - 5.0 10/13 [place] CHEM PANEL Chloride Lvl 102 meq/L 95 - 109 10/13 [place] CHEM PANEL CO2 30 meq/L 24 - 32 10/13 [place] CHEM PANEL AGAP 10.8 meq/L 10.0 - 10/13 MH 20.0 [place] CHEM PANEL BUN 7 mg/dL 7 - 22 07/21 MH /2018 [place] CHEM PANEL Sodium Lvl 139 meq/L 135 - 145 10/13 [place] CHEM PANEL Potassium 3.8 meq/L 3.5 - 5.1 10/13 MH Lvl [place] CHEM PANEL Creatinine 0.83 mg/dL 0.50 - 10/13 MH Lvl 1.40 [place] CHEM PANEL Lipase Lvl 204 unit/L 73 - 393 10/13 [place] ENDOCRINOL S Preg Negative Negative 10/13 MH OGY [place] *NA* (10/13/17 10:16 AM) HEMATOLOGY Monocytes 7.5 % 2.0 - 12.0 10/13 [place] HEMATOLOGY Segs 64.6 % 45.0 - 10/13 MH 75.0 [place] HEMATOLOGY Lymphocytes 26.4 % 20.0 - 10/13 MH 40.0 [place] HEMATOLOGY Segs-Bands # 4.8 K/CMM 1.5 - 8.1 10/13 [place] HEMATOLOGY Basophils 0.4 % 0.0 - 1.0 10/13 [place] HEMATOLOGY Eosinophils 1.1 % 0.0 - 4.0 10/13 [place] HEMATOLOGY Monocytes # 0.6 K/CMM 0.0 - 0.8 10/13 [place] HEMATOLOGY Lymphocytes 2.0 K/CMM 1.0 - 5.5 10/13 MH [place] HEMATOLOGY Eosinophils 0.1 K/CMM 0.0 - 0.5 10/13 MH # [place] HEMATOLOGY RDW 13.4 % 11.5 - 10/13 MH 14. [place] HEMATOLOGY MCH 30.7 pg 27.0 - 10/13 MH 31.0 [place] HEMATOLOGY Platelet 204 K/CMM 133 - 450 10/13 [place] HEMATOLOGY MCHC 34.7 g/dL 32.0 - 10/13 MH 36.0 [place] HEMATOLOGY MCV 88.5 fL 80.0 - 10/13 MH 98.0 [place] HEMATOLOGY MPV 8.2 fL 7.4 - 10.4 10/13 [place] HEMATOLOGY Hct 38.7 % 36.0 - 10/13 MH 48.0 [place] HEMATOLOGY Hgb 13.4 g/dL 12.0 - 10/13 16.0 [place] HEMATOLOGY RBC 4.37 M/CMM 4.20 - 10/13 MH 5.40 /2017 [place] HEMATOLOGY WBC 7.4 K/CMM 3.7 - 10.4 10/13 [place] URINE AND UA <=1.0 0.1 - 1.0 10/13 [facility] Urobilinogen mg/dL [place] URINE AND UA Mucus Few /LPF None Seen 10/13 STOOL /LPF /2017 [place] URINE AND UA CaOx Judy Many /HPF None Seen 10/13 STOOL /HPF /2017 [place] URINE AND UA RBC 3 /HPF 0 - 2 10/13 [place] URINE AND UA WBC 2 /HPF 0 - 5 10/13 [place] URINE AND UA Leuk Est Negative Negative 10/13 [place] (10/13/17 10:16 AM) URINE AND UA Sq Epi Few /LPF Few /LPF 10/13 [place] URINE AND UA Bacteria Occasional None Seen 10/13 [facility] /HPF /HPF [place] URINE AND UA Blood Negative Negative 10/13 STOOL [place] (10/13/17 10:16 AM) URINE AND UA Nitrite Negative Negative 10/13 [place] (10/13/17 10:16 AM) URINE AND UA pH 6.0 5.0 - 8.0 10/13 [place] URINE AND UA Spec Grav 1.008 <=1.030 10/13 [place] URINE AND UA Ketones Negative Negative 10/13 [facility] mg/dL mg/dL [place] URINE AND UA Bili Negative Negative 10/13 [place] *NA* (10/13/17 10:16 AM) URINE AND UA Glucose Negative Negative 10/13 [facility] mg/dL mg/dL [place] URINE AND UA Color Yellow Yellow 10/13 [place] *NA* (10/13/17 10:16 AM) URINE AND UA Turbidity Slight Clear 10/13 [place] *ABN* (10/13/17 10:16 AM) URINE AND UA Protein Negative Negative 10/13 [facility] mg/dL mg/dL [place] ED ED Clinical Indication: - rlq abd pain. 10/13 - [facility] Abdomen/Pe Abdomen/Pelv /2018 - [place] lvis IV is IV Comparison: 08/24/2006. contrast contrast only CT only CT Read by: Rekha Elizabeth MD Dictated Date/time: 10/13/17 11:30 Electronically Signed by: Rekha Elizabeth MD 10/13/17 11:50 FINAL REPORT TECHNIQUE: Helical imaging was performed from diaphragm through the symphysis with coronal and sagittal reconstructions. CT imaging was performed with exposure control parameters to reduce radiation dose. IV CONTRAST: 100 cc Omnipaque. GI CONTRAST: No CT Radiation Dose: DUO=745.82 mGy-cm FINDINGS: LOWER CHEST: Visualized aspects of the lung bases are clear. LIVER: Normal enhancement. No intrahepatic bile duct dilatation. GALLBLADDER: No visualized stones. Normal wall thickness. INTRAHEPATIC BILE DUCT AND EXTRAHEPATIC BILE DUCT: No intra or extrahepatic bile duct dilatation. Pancreatic duct is within normal limits. PANCREAS: Normal enhancement. SPLEEN: Unremarkable. ADRENALS: Unremarkable. KIDNEYS AND URETERS: Nonobstructing stones in the left kidney, 7 mm left lower pole, 3 mm left lower pole, 5 mm left lower pole, mild left pelvic caliectasis and dilatation of the proximal left ureter. Mild degree of right pelviectasis. 3 mm distal right ureteral stone. STOMACH: Unremarkable. BOWEL: The small bowel loops in the abdomen and pelvis appear unremarkable. The colonic loops in the abdomen and pelvis appear unremarkable. APPENDIX: Not well seen on the exam. PERITONEUM AND RETROPERITONEUM: No ascites or free air. There is no aortic aneurysm or dissection. LYMPH NODES: Unremarkable. PELVIS: Status post hysterectomy. Trace free fluid in the cul-de-sac. BLADDER: Unremarkable. OSSEOUS STRUCTURES: No acute abnormality seen. SOFT TISSUES: Unremarkable. IMPRESSION: 1. 3 mm distal right ureteral stone without right hydroureteronephrosis. 2. Multiple nonobstructing stones in the left kidney, the largest measuring 7 mm in the left lower pole. Mild left hydronephrosis and dilatation of the proximal left ureter without radiopaque stone. SL: [place] ENDOCRINOL S Preg Negative Negative 05/01 [place] OGY /2016 [facility] *NA* (05/01/16 7:00 AM) BLOOD BANK ABO/Rh B POS 04/24 [place] RESULTS /2016 [facility] BLOOD BANK Antibody Negative 04/24 MH [place] RESULTS [place] (04/24/16 10:31 AM) HEMATOLOGY Basophils # 0.0 K/CMM 0.0 - 0.2 04/24 [place] HEMATOLOGY Monocytes # 0.4 K/CMM 0.0 - 0.8 04/24 [place] /2016 [place] HEMATOLOGY Eosinophils 0.1 K/CMM 0.0 - 0.5 04/24 [place] # /2016 [place] HEMATOLOGY Segs-Bands # 3.3 K/CMM 1.5 - 8.1 04/24 [place] HEMATOLOGY Lymphocytes 1.6 K/CMM 1.0 - 5.5 04/24 [place] # /2017 [place] HEMATOLOGY Segs 60.9 % 45.0 - 04/24 [place] 75.0 [place] HEMATOLOGY Basophils 0.5 % 0.0 - 1.0 04/24 [place] HEMATOLOGY Eosinophils 1.8 % 0.0 - 4.0 04/24 [place] HEMATOLOGY Lymphocytes 29.1 % 20.0 - 04/24 [place] 40.0 [place] HEMATOLOGY Monocytes 7.7 % 2.0 - 12.0 04/24 [place] HEMATOLOGY MCH 28.5 pg 27.0 - 04/24 [place] 31.0 [place] HEMATOLOGY MCV 87.6 fL 80.0 - 04/24 [place] 98.0 [place] HEMATOLOGY Hct 37.5 % 36.0 - 04/24 [place] 48.0 /2016 [place] HEMATOLOGY MCHC 32.6 g/dL 32.0 - 04/24 [place] 36.0 /2016 [place] HEMATOLOGY Platelet 263 K/CMM 133 - 450 04/24 [place] HEMATOLOGY RDW 15.8 % 11.5 - 04/24 MH [place] 14.5 /2016 [place] HEMATOLOGY MPV 8.6 fL 7.4 - 10.4 04/24 [place] HEMATOLOGY WBC 5.4 K/CMM 3.7 - 10.4 04/24 [place] HEMATOLOGY Hgb 12.2 g/dL 12.0 - 04/24 [place] 16.0 [place] HEMATOLOGY RBC 4.29 M/CMM 4.20 - 04/24 MH [place] 5.40 /2017 [place] URINE AND UA Color Yellow Yellow 03/17 STOOL /2015 [place] *NA* (03/17/16 5:03 PM) URINE AND UA Turbidity Cloudy Clear 03/17 STOOL [place] *ABN* (03/17/16 5:03 PM) URINE AND UA Ketones Negative Negative 03/17 STOOL [place] *NA* (03/17/16 5:03 PM) URINE AND UA Glucose Negative Negative 03/17 STOOL [place] (03/17/16 5:03 PM) URINE AND UA Spec Grav 1.025 <=1.030 03/17 STOOL [place] URINE AND UA pH 6.0 5.0 - 8.0 03/17 STOOL [place] URINE AND UA Protein 30 mg/dL Negative 03/17 [facility] mg/dL [place] URINE AND UA Nitrite Negative Negative 03/17 STOOL [place] (03/17/16 5:03 PM) URINE AND UA Bili Negative Negative 03/17 STOOL [place] *NA* (03/17/16 5:03 PM) URINE AND UA Blood Moderate Negative 03/17 STOOL [place] *ABN* (03/17/16 5:03 PM) URINE AND UA 4.0 EU/dL 0.1 - 1.0 03/17 [facility] Urobilinogen [place] URINE AND UA Leuk Est Moderate Negative 03/17 STOOL [place] *ABN* (03/17/16 5:03 PM) URINE AND UA Sq Epi Occasional Few /LPF 03/17 [facility] /LPF [place] URINE AND UA RBC 3-5 /HPF 0 - 2 03/17 STOOL [place] URINE AND UA Bacteria Many /HPF None Seen 03/17 STO[facility] /HPF [place] URINE AND UA WBC 11-20 /HPF None Seen 03/17 [facility] /HPF /2015 [place] CHEM PANEL Lipase Lvl 193 unit/L 73 - 393 03/17 [place] CHEM PANEL A/G Ratio 0.5 0.7 - 1.6 03/17 [place] CHEM PANEL AGAP 11.4 meq/L 10.0 - 03/17 20.0 [place] CHEM PANEL Globulin 5.5 g/dL 2.7 - 4.2 03/17 [place] CHEM PANEL B/C Ratio 7 6 - 25 03/17 [place] CHEM PANEL eGFR 100 03/17 Result Comment: The eGFR is calculated using the CKD-EPI formula. In most young, healthy individuals the eGFR will be >90 mL/ min/1.73m2. The eGFR declines with age. An eGFR of 60-89 may be normal in mL/min/1. some populations, particularly the elderly, for whom the CKD-EPI formula has not been extensively validated. Use of the eGFR is not recommended in the following populations: [address] Individuals with unstable creatinine concentrations, including patients and those with serious co-morbid conditions. Patients with extremes in muscle mass or diet. The data above are obtained from the National Kidney Disease Education Program (NKDEP) which additionally recommends that when the eGFR is used in patients with extremes of body mass index for purposes of drug dosing, the eGFR should be multiplied by the estimated BMI. CHEM PANEL ALANINE 65 unit/L 0 - 65 03/17 AMINOTRANSFE [place]ASE CHEM PANEL Potassium 3.4 meq/L 3.5 - 5.1 03/17 Lvl [place] CHEM PANEL BUN 6 mg/dL 7 - 03/17 [place] CHEM PANEL Sodium Lvl 137 meq/L 135 - 145 03/17 [place] CHEM PANEL Creatinine 0.85 mg/dL 0.50 - 03/17 MH Lvl 1.40 [place] CHEM PANEL Bili Total 0.5 mg/dL 0.2 - 1.3 03/17 [place] CHEM PANEL Chloride Lvl 100 meq/L 95 - 109 03/17 [place] CHEM PANEL Calcium Lvl 9.6 mg/dL 8.5 - 10.5 03/17 [place] CHEM PANEL CO2 29 meq/L 24 - 32 03/17 [place] CHEM PANEL ASPARTATE 59 unit/L 0 - 37 03/17 TRANSAMINASE [place] CHEM PANEL Total 8.5 g/dL 6.4 - 8.4 03/17 Protein [place] CHEM PANEL Glucose Lvl 106 mg/dL 70 - 99 03/17 [place] CHEM PANEL Albumin Lvl 3.0 g/dL 3.5 - 5.0 03/17 [place] CHEM PANEL Alk Phos 83 unit/L 39 - 136 03/17 [place] ENDOCRINOL S Preg Negative Negative 03/17 OGY [place] *NA* (03/17/16 4:42 PM) HEMATOLOGY MPV 8.6 fL 7.4 - 10.4 03/17 [place] HEMATOLOGY MCHC 34.3 g/dL 32.0 - 03/17 MH 36.0 [place] HEMATOLOGY Platelet 133 K/CMM 133 - 450 03/17 [place] HEMATOLOGY RDW 16.8 % 11.5 - 03/17 MH 14.5 [place] HEMATOLOGY MCH 28.7 pg 27.0 - 03/17 MH 31.0 [place] HEMATOLOGY Hgb 11.7 g/dL 12.0 - 03/17 MH 16.0 [place] HEMATOLOGY Hct 34.1 % 36.0 - 03/17 MH 48.0 [place] HEMATOLOGY WBC X 10x3 7.6 K/CMM 3.7 - 10.4 03/17 [place] HEMATOLOGY MCV 83.6 fL 80.0 - 03/17 MH 98.0 [place] HEMATOLOGY RBC X 10x6 4.08 M/CMM 4.20 - 03/17 MH 5.40 [place] HEMATOLOGY Eosinophils 0.6 % 0.0 - 4.0 03/17 [place] HEMATOLOGY Lymphocytes 16.1 % 20.0 - 03/17 MH 40.0 [place] HEMATOLOGY Monocytes 12.9 % 2.0 - 12.0 03/17 [place] HEMATOLOGY Segs-Bands # 5.3 K/CMM 1.5 - 8.1 03/17 [place] HEMATOLOGY Monocytes # 1.0 K/CMM 0.0 - 0.8 03/17 [place] HEMATOLOGY Lymphocytes 1.2 K/CMM 1.0 - 5.5 03/17 MH # /2015 [place] HEMATOLOGY Basophils 0.2 % 0.0 - 1.0 03/17 [place] HEMATOLOGY Segs 70.2 % 45.0 - 03/17 75.0 [place] VIRAL - Influ B Negative Negative 03/17 SEROLOGY [place] (03/17/16 4:42 PM) VIRAL - Influ A Negative Negative 03/17 SEROLOGY /2015 [place] (03/17/16 4:42 PM) Chest 2 Chest 2 Patient Name: BRENNENADILENE ALYSHA YOUNG 03/17 [facility] DX [place] : 1975; Age: 40 years y/o Female MR: [id number] Read by: Karson Medina MD Dictated Date/time: 03/17/16 18:24 Electronically Signed by: Karson Medina MD 03/17/16 18:26 FINAL REPORT * CHEST, 2 views HISTORY: Cough and fever COMPARISON: 04/07/2015. A study of 11/03/[address] images through the lung bases from an abdominal computed tomography scan of 08/24/2006 were reviewed. TECHNIQUE: Frontal and lateral radiographs of the chest were obtained. FINDINGS: The lungs are clear. There are no pleural effusions. There is borderline cardiomegaly. There is no overt failure. The regional skeleton is unremarkable. IMPRESSION: 1. No active disease. 2. Borderline cardiomegaly. SL: [place] Abdomen AP Abdomen AP Patient Name: ATIF YOUNG 03/17 [facility] DX DX [place] : 1975; Age: 40 years y/o Female MR: [id number] Read by: Karson Medina MD Dictated Date/time: 03/17/16 18:37 Electronically Signed by: Karson Medina MD 03/17/16 18:40 FINAL REPORT * ABDOMEN, 1 view HISTORY: Acute generalized abdominal pain. A computed tomography scan of the abdomen and pelvis from 08/24/2006 was reviewed. TECHNIQUE: A supine radiograph of the abdomen was obtained. FINDINGS: The soft tissue outlines and bowel gas pattern are unremarkable. There is no evidence of obstruction or ileus. There are no unusual intra-abdominal calcifications. The regional skeleton is unremarkable. IMPRESSION: 1. Benign appearance the abdomen. SL: [place] ANEMIA % [place] Fe 6 % 12 - 57 04/08 [facility] ANEMIA TIBC 478 ug/dl 228 - 428 04/08 [facility] ANEMIA UIBC 448 ug/dl 110 - 370 04/08 [facility] ANEMIA Iron 30 ug/dl 30 - 160 04/08 [facility] ANEMIA Ferritin Lvl 5 ng/mL 5 - 204 04/08 [facility] CARDIAC CK MB 0.7 ng/mL 0.5 - 3.6 04/08 [facility] CARDIAC Total CK 217 unit/L 12 - 191 04/08 ENZYMES [facility] CARDIAC CK MB Index 0.3 0.0 - 2.5 04/08 ENZYMES [facility] CHEM PANEL eGFR 132 04/08 Result Comment: The eGFR is calculated using the CKD-EPI formula. In most young, healthy individuals the eGFR will be >90 mL/ min/1.73m2. The eGFR declines with age. An eGFR of 60-89 may be normal in mL/min/1.7 some populations, particularly the elderly, for whom the CKD-EPI formula has not been extensively validated. Use of the eGFR is not recommended in the following populations: [facility] 3m2 Individuals with unstable creatinine concentrations, including patients and those with serious co-morbid conditions. Patients with extremes in muscle mass or diet. The data above are obtained from the National Kidney Disease Education Program (NKDEP) which additionally recommends that when the eGFR is used in patients with extremes of body mass index for purposes of drug dosing, the eGFR should be multiplied by the estimated BMI. CHEM PANEL AST 39 unit/L 0 - 37 04/08 [facility] CHEM PANEL Alk Phos 91 unit/L 39 - 136 04/08 [facility] CHEM PANEL ALT 25 unit/L 0 - 65 04/08 [place] CHEM PANEL Bili Total 0.4 mg/dL 0.2 - 1.3 04/08 [place] CHEM PANEL Calcium Lvl 9.4 mg/dL 8.5 - 10.5 04/08 [facility] CHEM PANEL B/C Ratio 13 6 - 25 04/08 [place] CHEM PANEL AGAP 15.2 meq/L 10.0 - 04/08 20.0 [place] CHEM PANEL CO2 21 meq/L 24 - 32 04/08 [place] CHEM PANEL A/G Ratio 0.5 0.7 - 1.6 04/08 [place] CHEM PANEL Globulin 5.0 g/dL 2.0 - 4.0 04/08 [place] CHEM PANEL Total 7.7 g/dL 6.4 - 8.4 04/08 [place] CHEM PANEL Albumin Lvl 2.7 g/dL 3.5 - 5.0 04/08 [place] CHEM PANEL BUN 8 mg/dL 7 - 22 04/08 [place] CHEM PANEL Glucose Lvl 86 mg/dL 70 - 99 04/08 [facility] CHEM PANEL Creatinine 0.60 mg/dL 0.50 - 04/08 Lvl 1.40 [facility] CHEM PANEL Sodium Lvl 138 meq/L 135 - 145 04/08 [facility] CHEM PANEL Chloride Lvl 106 meq/L 95 - 109 04/08 [facility] CHEM PANEL Potassium 4.2 meq/L 3.5 - 5.1 04/08 Lvl /2015 [facility] HEMATOLOGY Polychrom Moderate None Seen 04/08 [facility] *ABN* (04/08/15 5:10 AM) HEMATOLOGY Microcyte 2+ None Seen 04/08 [facility] *ABN* (04/08/15 5:10 AM) HEMATOLOGY Basophils # 0.0 K/CMM 0.0 - 0.2 04/08 [facility] HEMATOLOGY Plt Morph Normal 04/08 [facility] (04/08/15 5:10 AM) HEMATOLOGY Lymphocytes 1.8 K/CMM 1.0 - 5.5 04/08 [facility] HEMATOLOGY Segs-Bands # 3.0 K/CMM 1.5 - 8.1 04/08 [facility] HEMATOLOGY Monocytes # 0.4 K/CMM 0.0 - 0.8 04/08 [facility] HEMATOLOGY Eosinophils 0.1 K/CMM 0.0 - 0.5 04/08 [facility] HEMATOLOGY Monocytes 7.0 % 2.0 - 12.0 04/08 [facility] HEMATOLOGY Segs 56.2 % 45.0 - 04/08 75.0 [facility] HEMATOLOGY Eosinophils 2.0 % 0.0 - 4.0 04/08 [facility] HEMATOLOGY Lymphocytes 34.2 % 20.0 - 04/08 40.0 [facility] HEMATOLOGY Basophils 0.6 % 0.0 - 1.0 04/08 [facility] HEMATOLOGY MPV 8.3 fL 7.4 - 10.4 04/08 [facility] HEMATOLOGY Platelet 291 K/CMM 133 - 450 04/08 [facility] HEMATOLOGY RDW 17.7 % 11.5 - 04/08 14. [facility] HEMATOLOGY MCHC 30.4 g/dL 32.0 - 04/08 36.0 [facility] HEMATOLOGY MCH 21.9 pg 27.0 - 04/08 31.0 [facility] HEMATOLOGY RBC 3.99 M/CMM 4.20 - 04/08 MH 5.40 /2015 [facility] HEMATOLOGY WBC 5.4 K/CMM 3.7 - 10.4 04/08 [facility] HEMATOLOGY MCV 72.1 fL 80.0 - 04/08 98.0 [facility] HEMATOLOGY Hgb 8.8 g/dL 12.0 - 04/08 16.0 [facility] HEMATOLOGY Hct 28.8 % 36.0 - 04/08 48.0 [facility] LIPIDS CHD Risk 3.45 3.90 - 04/08 5.80 /2015 [facility] LIPIDS HDL 53 mg/dL >=61 mg/dL 04/08 [facility] LIPIDS LDL 106 mg/dL <=99 mg/dL 04/08 (Calculated) [facility] LIPIDS Trig 121 mg/dL <=149 04/08 mg/dL [facility] LIPIDS Chol 183 mg/dL <=199 04/08 mg/dL [facility] LIPIDS VLDL 24 04/08 [facility] ANEMIA Folate Lvl 17.7 ng/mL >=3.0 04/08 STUDY ng/mL /2015 [facility] ANEMIA Vitamin B12 539 pg/mL 254 - 1320 04/08 STUDY Lvl /2015 [facility] ANEMIA Ferritin Lvl 2 ng/mL 5 - 204 04/08 STUDY /2015 [facility] HEMATOLOGY Retic Auto 1.4 % 0.5 - 1.5 04/08 [facility] CARDIAC Troponin-I null 0.00 - 04/07 ENZYMES 0.40 [facility] CARDIAC Total CK 257 unit/L 12 - 191 04/07 ENZYMES [facility] CARDIAC CK MB Index 0.4 0.0 - 2.5 04/07 ENZYMES [facility] CARDIAC CK MB 1.1 ng/mL 0.5 - 3.6 04/07 ENZYMES [facility] CARDIAC Troponin-I null 0.00 - 04/07 ENZYMES 0.40 [facility] URINE AND UA Spec Grav 1.020 <=1.030 04/07 STOOL [facility] URINE AND UA Protein Trace Negative 04/07 STOOL [facility] *ABN* (04/07/15 8:33 AM) URINE AND UA pH 6.5 5.0 - 8.0 04/07 STOOL [facility] URINE AND UA Ketones Negative Negative 04/07 STOOL [facility] *NA* (04/07/15 8:33 AM) URINE AND UA Glucose Negative Negative 04/07 STOOL [facility] (04/07/15 8:33 AM) URINE AND UA Bili Negative Negative 04/07 STOOL [facility] *NA* (04/07/15 8:33 AM) URINE AND UA 0.2 EU/dL 0.1 - 1.0 04/07 [facility] Urobilinogen [facility] URINE AND UA Blood Large Negative 04/07 STOOL [facility] *ABN* (04/07/15 8:33 AM) URINE AND UA Leuk Est Negative Negative 04/07 STOOL [facility] (04/07/15 8:33 AM) URINE AND UA Nitrite Negative Negative 04/07 STOOL [facility] (04/07/15 8:33 AM) URINE AND UA Turbidity Clear Clear 04/07 STOOL [facility] (04/07/15 8:33 AM) URINE AND UA Color Yellow Yellow 04/07 STOOL [facility] *NA* (04/07/15 8:33 AM) URINE AND UA Mucus Few /LPF None Seen 04/07 STOOL /LPF [facility] URINE AND UA Bacteria Occasional None Seen 04/07 STOOL /HPF /HPF [facility] URINE AND UA WBC 0-2 /HPF None Seen 04/07 STOOL /HPF [facility] URINE AND UA Sq Epi Few /LPF Few /LPF 04/07 STOOL [facility] URINE AND Micro? Performed 04/07 STOOL [facility] (04/07/15 8:33 AM) URINE AND UA RBC 3-5 /HPF 0 - 2 04/07 STOOL [facility] CARDIAC Troponin-I null 0.00 - 04/07 ENZYMES 0.40 /2015 [facility] CARDIAC BNP 45 pg/mL <=100 04/07 ENZYMES pg/mL [facility] CARDIAC CK MB 1.2 ng/mL 0.5 - 3.6 04/07 ENZYMES [facility] CARDIAC Total CK 219 unit/L 12 - 191 04/07 ENZYMES [facility] CARDIAC CK MB Index 0.5 0.0 - 2.5 04/07 ENZYMES [facility] CHEM PANEL eGFR 115 04/07 Result Comment: The eGFR is calculated using the CKD-EPI formula. In most young, healthy individuals the eGFR will be >90 mL/ min/1.73m2. The eGFR declines with age. An eGFR of 60-89 may be normal in mL/min/1.7 /2016 some populations, particularly the elderly, for whom the CKD-EPI formula has not been extensively validated. Use of the eGFR is not recommended in the following populations: [place] [address] Individuals with unstable creatinine concentrations, including patients and those with serious co-morbid conditions. Patients with extremes in muscle mass or diet. The data above are obtained from the National Kidney Disease Education Program (NKDEP) which additionally recommends that when the eGFR is used in patients with extremes of body mass index for purposes of drug dosing, the eGFR should be multiplied by the estimated BMI. CHEM PANEL AGAP 15.0 meq/L 10.0 - 04/07 MH 20.0 [facility] CHEM PANEL Bili Total 0.2 mg/dL 0.2 - 1.3 04/07 [facility] CHEM PANEL A/G Ratio 0.6 0.7 - 1.6 04/07 [facility] CHEM PANEL Globulin 5.4 g/dL 2.0 - 4.0 04/07 [facility] CHEM PANEL B/C Ratio 12 6 - 25 04/07 [facility] CHEM PANEL Alk Phos 107 unit/L 39 - 136 04/07 [facility] CHEM PANEL ALT 24 unit/L 0 - 65 04/07 [facility] CHEM PANEL AST 19 unit/L 0 - 37 04/07 [facility] CHEM PANEL CO2 24 meq/L 24 - 32 04/07 [facility] CHEM PANEL Calcium Lvl 9.5 mg/dL 8.5 - 10.5 04/07 [facility] CHEM PANEL Total 8.4 g/dL 6.4 - 8.4 04/07 [facility] CHEM PANEL BUN 9 mg/dL 7 - 22 04/07 [facility] CHEM PANEL Albumin Lvl 3.0 g/dL 3.5 - 5.0 04/07 [facility] CHEM PANEL Creatinine 0.75 mg/dL 0.50 - 04/07 Lvl 1.40 [facility] CHEM PANEL Sodium Lvl 139 meq/L 135 - 145 04/07 [facility] CHEM PANEL Potassium 4.0 meq/L 3.5 - 5.1 04/07 Lvl [facility] CHEM PANEL Chloride Lvl 104 meq/L 95 - 109 04/07 [facility] CHEM PANEL Glucose Lvl 118 mg/dL 70 - 99 04/07 [facility] HEMATOLOGY Hgb 9.2 g/dL 12.0 - 04/07 MH 16.0 /2015 [facility] HEMATOLOGY MCV 71.0 fL 80.0 - 04/07 98.0 /2015 [facility] MCH 21.4 pg 27.0 - 04/07 MH 31.0 /2015 [facility] Platelet 280 K/CMM 133 - 450 04/07 [facility] MPV 8.0 fL 7.4 - 10.4 04/07 [facility] HEMATOLOGY RDW 18.0 % 11.5 - 04/07 14.5 /2015 [facility] MCHC 30.1 g/dL 32.0 - 04/07 36.0 /2015 [facility] WBC 9.0 K/CMM 3.7 - 10.4 04/07 [facility] RBC 4.30 M/CMM 4.20 - 04/07 5.40 /2015 [facility] Hct 30.5 % 36.0 - 04/07 48.0 /2015 [facility] HEMATOLOGY Segs 84.7 % 45.0 - 04/07 75.0 /2015 [facility] Lymphocytes 9.4 % 20.0 - 04/07 40.0 /2015 [facility] HEMATOLOGY Eosinophils 0.0 K/CMM 0.0 - 0.5 04/07 # /2015 [facility] HEMATOLOGY Lymphocytes 0.8 K/CMM 1.0 - 5.5 04/07 # /2015 [facility] HEMATOLOGY Monocytes # 0.5 K/CMM 0.0 - 0.8 04/07 [facility] HEMATOLOGY Segs-Bands # 7.6 K/CMM 1.5 - 8.1 04/07 [facility] Monocytes 5.4 % 2.0 - 12.0 04/07 [facility] HEMATOLOGY Eosinophils 0.3 % 0.0 - 4.0 04/07 [facility] HEMATOLOGY Basophils 0.2 % 0.0 - 1.0 04/07 [facility] Basophils # 0.0 K/CMM 0.0 - 0.2 04/07 [facility] Chest Chest 1view Chest one view: 04/07 - 1view DX - [facility] Exam reason: Chest pain. Read by: Uche Elizabeth MD Dictated Date/time: 04/07/15 08:00 Electronically Signed by: Uche Elizabeth MD 04/07/15 08:01 FINAL REPORT The cardiomediastinal silhouette is accentuated by suboptimal inspiratory effort, portable technique and positional obliquity. Lungs are clear. There is no consolidation or pleural fluid collection. SL:14 CARDIAC CK MB Index 0.4 0.0 - 2.5 11/06 ENZYMES /2014 [facility] CARDIAC CK MB 0.6 ng/mL 0.5 - 3.6 11/06 ENZYMES [facility] CARDIAC Troponin-I null 0.00 - 11/06 ENZYMES 0.40 /2014 [facility] CARDIAC Total CK 136 unit/L 12 - 191 11/06 ENZYMES [facility] ELECTROLYT Potassium 4.4 meq/L 3.5 - 5.1 11/06 ES Lvl /2014 [facility] ELECTROLYT Sodium Lvl 139 meq/L 135 - 145 11/06 ES [facility] ELECTROLYT Chloride Lvl 107 meq/L 95 - 109 11/06 ES [facility] ELECTROLYT eGFR 107 11/06 Result Comment: The eGFR is calculated using the CKD-EPI formula. In most young, healthy individuals the eGFR will be >90 mL/ min/1.73m2. The eGFR declines with age. An eGFR of 60-89 may be normal in ES mL/min/1.7 /2015 some populations, particularly the elderly, for whom the CKD-EPI formula has not been extensively validated. Use of the eGFR is not recommended in the following populations: [facility] 3m2 Individuals with unstable creatinine concentrations, including patients and those with serious co-morbid conditions. Patients with extremes in muscle mass or diet. The data above are obtained from the National Kidney Disease Education Program (NKDEP) which additionally recommends that when the eGFR is used in patients with extremes of body mass index for purposes of drug dosing, the eGFR should be multiplied by the estimated BMI. ELECTROLYT CO2 20 meq/L 24 - 32 11/06 ES [facility] ELECTROLYT Calcium Lvl 9.5 mg/dL 8.5 - 10.5 11/06 ES [facility] ELECTROLYT Total 7.7 g/dL 6.4 - 8.4 11/06 ES Protein [facility] ELECTROLYT Albumin Lvl 2.9 g/dL 3.5 - 5.0 11/06 ES [facility] ELECTROLYT ALT 21 unit/L 0 - 65 11/06 [facility] ELECTROLYT AST 27 unit/L 0 - 37 11/06 [facility] ELECTROLYT Alk Phos 81 unit/L 39 - 136 11/06 [facility] ELECTROLYT Bili Total 0.4 mg/dL 0.2 - 1.3 11/06 [facility] ELECTROLYT Creatinine 0.8 mg/dL 0.5 - 1.4 11/06 ES Lvl [facility] ELECTROLYT Glucose Lvl 88 mg/dL 70 - 99 11/06 [facility] ELECTROLYT BUN 7 mg/dL 7 - 22 11/06 [facility] ELECTROLYT AGAP 16.4 meq/L 10.0 - 11/06 ES 20.0 [facility] ELECTROLYT B/C Ratio 9 6 - 25 11/06 [facility] ELECTROLYT Globulin 4.8 g/dL 2.0 - 4.0 11/06 [facility] ELECTROLYT A/G Ratio 0.6 0.7 - 1.6 11/06 [facility] HEMATOLOGY Segs 54.4 % 45.0 - 11/06 75.0 [facility] HEMATOLOGY Lymphocytes 31.6 % 20.0 - 11/06 40.0 [facility] HEMATOLOGY Basophils 0.9 % 0.0 - 1.0 11/06 [facility] HEMATOLOGY Segs-Bands # 2.8 K/CMM 1.5 - 8.1 11/06 [facility] HEMATOLOGY Monocytes 10.8 % 2.0 - 12.0 11/06 [facility] HEMATOLOGY Eosinophils 0.1 K/CMM 0.0 - 0.5 11/06 /2014 [facility] HEMATOLOGY Eosinophils 2.3 % 0.0 - 4.0 11/06 [facility] HEMATOLOGY Microcyte 3+ None Seen 11/06 [facility] *NA* (11/06/14 4:19 AM) HEMATOLOGY Lymphocytes 1.6 K/CMM 1.0 - 5.5 11/06 /2014 [facility] HEMATOLOGY Monocytes # 0.6 K/CMM 0.0 - 0.8 11/06 [facility] HEMATOLOGY MCHC 30.6 g/dL 32.0 - 11/06 MH 36.0 /2014 [facility] HEMATOLOGY MPV 8.2 fL 7.4 - 10.4 11/06 [facility] HEMATOLOGY RDW 17.5 % 11.5 - 11/06 14.5 /2014 [facility] HEMATOLOGY Platelet 257 K/CMM 133 - 450 11/06 /2014 [facility] HEMATOLOGY RBC 4.00 M/CMM 4.20 - 11/06 5.40 /2014 [facility] HEMATOLOGY Hgb 8.4 g/dL 12.0 - 11/06 16.0 /2014 [facility] HEMATOLOGY MCH 21.1 pg 27.0 - 11/06 31.0 /2014 [facility] HEMATOLOGY Hct 27.6 % 36.0 - 11/06 48.0 /2014 [facility] HEMATOLOGY MCV 68.8 fL 80.0 - 11/06 98.0 /2014 [facility] HEMATOLOGY WBC 5.1 K/CMM 3.7 - 10.4 11/06 [facility] ANEMIA RBC Folate 1058 ng/mL 280 - 791 11/06 STUDY /2014 [facility] ANEMIA Folate Lvl 10.4 ng/mL >=3.0 11/06 STUDY ng/mL /2014 [facility] ANEMIA Vitamin B12 567 pg/mL 254 - 1320 11/06 STUDY Lvl [facility] ANEMIA TIBC 434 ug/dl 228 - 428 11/06 STUDY [facility] ANEMIA Iron 15 ug/dl 30 - 160 11/06 STUDY /2014 [facility] ANEMIA % [place] 3 % 12 - 57 11/06 STUDY /2014 [facility] ANEMIA UIBC 419 ug/dl 110 - 370 11/06 STUDY /2014 [facility] ANEMIA Ferritin Lvl 2 ng/mL 5 - 204 11/06 STUDY /2014 [facility] CHEM PANEL LDH 114 unit/L 98 - 192 11/06 [facility] HEMATOLOGY Retic Auto 1.7 % 0.5 - 1.5 11/06 [facility] IMMUNOLOGY Homocyst Tot 12.8 3.7 - 13.9 11/06 umol/L /2014 [facility] URINE AND Occult Bld Negative Negative 11/05 STOOL Stl /2014 [facility] (11/05/14 5:15 PM) BLOOD BANK ABO/Rh B POS 11/05 Result Comment: 11/05/2014 16:43 SEPATEL RESULTS /2014 notify to [facility] 11/05/2014 16:43 by annabella [facility] BLOOD BANK Antibody Negative 11/05 RESULTS Scrn [facility] (11/05/14 4:23 PM) CARDIAC CK MB null 0.5 - 3.6 11/05 ENZYMES /2014 [facility] CARDIAC Troponin-I null 0.00 - 11/05 ENZYMES 0.40 /2015 [facility] CARDIAC Total CK 148 unit/L 12 - 191 11/05 ENZYMES [facility] CARDIAC CK MB Index null 0.0 - 2.5 11/05 ENZYMES [facility] CHEM PANEL eGFR 104 11/05 Result Comment: The eGFR is calculated using the CKD-EPI formula. In most young, healthy individuals the eGFR will be >90 mL/ min/1.73m2. The eGFR declines with age. An eGFR of 60-89 may be normal in mL/min/1.7 /2014 some populations, particularly the elderly, for whom the CKD-EPI formula has not been extensively validated. Use of the eGFR is not recommended in the following populations: [facility] 3m2 Individuals with unstable creatinine concentrations, including patients and those with serious co-morbid conditions. Patients with extremes in muscle mass or diet. The data above are obtained from the National Kidney Disease Education Program (NKDEP) which additionally recommends that when the eGFR is used in patients with extremes of body mass index for purposes of drug dosing, the eGFR should be multiplied by the estimated BMI. CHEM PANEL CO2 27 meq/L 24 - 32 11/05 [facility] CHEM PANEL Calcium Lvl 9.8 mg/dL 8.5 - 10.5 11/05 [facility] CHEM PANEL Bili Total 0.3 mg/dL 0.2 - 1.3 11/05 [facility] CHEM PANEL BUN 7 mg/dL 7 - 22 11/05 [facility] CHEM PANEL Glucose Lvl 87 mg/dL 70 - 99 11/05 [facility] CHEM PANEL Sodium Lvl 138 meq/L 135 - 145 11/05 [facility] CHEM PANEL Chloride Lvl 104 meq/L 95 - 109 11/05 [facility] CHEM PANEL Potassium 3.5 meq/L 3.5 - 5.1 11/05 Lvl [facility] CHEM PANEL Creatinine 0.8 mg/dL 0.5 - 1.4 11/05 Lvl [facility] CHEM PANEL Total 8.2 g/dL 6.4 - 8.4 11/05 [facility] CHEM PANEL AST 17 unit/L 0 - 37 11/05 [facility] CHEM PANEL Globulin 5.0 g/dL 2.0 - 4.0 11/05 [facility] CHEM PANEL A/G Ratio 0.6 0.7 - 1.6 11/05 /2014 [facility] CHEM PANEL B/C Ratio 9 6 - 25 11/05 /2014 [facility] CHEM PANEL AGAP 10.5 meq/L 10.0 - 11/05 MH 20.0 /2014 [facility] CHEM PANEL Alk Phos 83 unit/L 39 - 136 11/05 [facility] CHEM PANEL Albumin Lvl 3.2 g/dL 3.5 - 5.0 11/05 [facility] CHEM PANEL ALT 18 unit/L 0 - 65 11/05 /2014 [facility] HEMATOLOGY PTT 29.7 s 22.9 - 11/05 MH 35.8 /2014 [facility] HEMATOLOGY PT 15.1 s 12.0 - 11/05 MH 14.7 /2014 [facility] HEMATOLOGY INR 1.18 0.85 - 11/05 MH 1.17 /2014 [facility] HEMATOLOGY WBC 5.0 K/CMM 3.7 - 10.4 11/05 [facility] HEMATOLOGY RBC 4.01 M/CMM 4.20 - 11/05 MH 5.40 /2014 [facility] HEMATOLOGY Hgb 8.2 g/dL 12.0 - 11/05 MH 16.0 [facility] HEMATOLOGY MPV 7.6 fL 7.4 - 10.4 11/05 [facility] HEMATOLOGY RDW 17.2 % 11.5 - 11/05 MH 14.5 [facility] HEMATOLOGY Platelet 281 K/CMM 133 - 450 11/05 [facility] HEMATOLOGY MCH 20.4 pg 27.0 - 11/05 MH 31.0 /2014 [facility] HEMATOLOGY MCHC 29.8 g/dL 32.0 - 11/05 MH 36.0 /2014 [facility] HEMATOLOGY MCV 68.4 fL 80.0 - 11/05 MH 98.0 [facility] HEMATOLOGY Hct 27.4 % 36.0 - 11/05 MH 48.0 /2014 [facility] HEMATOLOGY Segs 63.4 % 45.0 - 11/05 MH 75.0 [facility] HEMATOLOGY Hypochrom 1+ None Seen 11/05 [facility] (11/05/14 3:02 PM) HEMATOLOGY Monocytes 10.2 % 2.0 - 12.0 11/05 [facility] HEMATOLOGY Eosinophils 1.5 % 0.0 - 4.0 11/05 [facility] HEMATOLOGY Basophils 0.3 % 0.0 - 1.0 11/05 [facility] HEMATOLOGY Lymphocytes 24.6 % 20.0 - 11/05 40.0 [facility] HEMATOLOGY Plt Morph Normal 11/05 [facility] (11/05/14 3:02 PM) HEMATOLOGY RBC Morph See Note 11/05 (11/05/14 3:02 PM) HEMATOLOGY Lymphocytes 1.2 K/CMM 1.0 - 5.5 11/05 # /2015 HEMATOLOGY Monocytes # 0.5 K/CMM 0.0 - 0.8 11/05 HEMATOLOGY Segs-Bands # 3.2 K/CMM 1.5 - 8.1 11/05 [facility] HEMATOLOGY Microcyte 3+ None Seen 11/05 [facility] *NA* (11/05/14 3:02 PM) HEMATOLOGY Eosinophils 0.1 K/CMM 0.0 - 0.5 11/05 URINE AND UA Leuk Est Small Negative 11/03 *ABN* (11/03/14 1:07 PM) URINE AND UA Ketones Negative Negative 11/03 [facility] *NA* (11/03/14 1:07 PM) URINE AND UA Turbidity Cloudy Clear 11/03 *ABN* (11/03/14 1:07 PM) URINE AND UA Spec Grav 1.010 <=1.030 11/03 URINE AND UA Protein Trace Negative 11/03 *ABN* (11/03/14 1:07 PM) URINE AND UA pH 7.5 5.0 - 8.0 11/03 URINE AND UA Color Yellow Yellow 11/03 [facility] *NA* (11/03/14 1:07 PM) URINE AND UA Glucose Negative Negative 11/03 [facility] (11/03/14 1:07 PM) URINE AND UA Blood Negative Negative 11/03 (11/03/14 1:07 PM) URINE AND UA Bili Negative Negative 11/03 [facility] *NA* (11/03/14 1:07 PM) URINE AND UA 1.0 EU/dL 0.1 - 1.0 11/03 STOOL Urobilinogen /2014 URINE AND UA Nitrite Negative Negative 11/03 [facility] (11/03/14 1:07 PM) URINE AND UA RBC 0-2 /HPF 0 - 2 11/03 STOOL [facility] URINE AND UA WBC 11-20 /HPF None Seen 11/03 STOOL /HPF [facility] URINE AND UA Sq Epi Few /LPF Few /LPF 11/03 STOOL [facility] URINE AND UA Bacteria Many /HPF None Seen 11/03 STOOL /HPF [facility] URINE CHEM U Preg Negative Negative 11/03 [facility] (11/03/14 1:07 PM) CARDIAC Troponin-I null 0.00 - 11/03 ENZYMES 0.40 /2014 [facility] CARDIAC Troponin-I null 0.00 - 11/03 ENZYMES 0.40 [facility] CARDIAC Total CK 196 unit/L 12 - 191 11/03 ENZYMES [facility] CARDIAC CK MB 0.5 ng/mL 0.5 - 3.6 11/03 ENZYMES [facility] CARDIAC proBNP 18 pg/mL 0 - 125 11/03 ENZYMES [facility] CARDIAC CK MB Index 0.3 0.0 - 2.5 11/03 [facility] CHEM PANEL eGFR 111 11/03 Result Comment: The eGFR is calculated using the CKD-EPI formula. In most young, healthy individuals the eGFR will be >90 mL/ min/1.73m2. The eGFR declines with age. An eGFR of 60-89 may be normal in mL/min/1.7 /2014 some populations, particularly the elderly, for whom the CKD-EPI formula has not been extensively validated. Use of the eGFR is not recommended in the following populations: [facility] 3m2 Individuals with unstable creatinine concentrations, including patients and those with serious co-morbid conditions. Patients with extremes in muscle mass or diet. The data above are obtained from the National Kidney Disease Education Program (NKDEP) which additionally recommends that when the eGFR is used in patients with extremes of body mass index for purposes of drug dosing, the eGFR should be multiplied by the estimated BMI. CHEM PANEL Chloride Lvl 103 meq/L 95 - 109 11/03 [facility] CHEM PANEL BUN 6 mg/dL 7 - 22 11/03 [facility] CHEM PANEL Creatinine 0.8 mg/dL 0.5 - 1.4 11/03 Lvl [facility] CHEM PANEL Sodium Lvl 138 meq/L 135 - 145 11/03 [facility] CHEM PANEL Potassium 3.7 meq/L 3.5 - 5.1 11/03 Lvl /2014 [facility] CHEM PANEL Calcium Lvl 9.5 mg/dL 8.5 - 10.5 11/03 [facility] CHEM PANEL Total 8.2 g/dL 6.4 - 8.4 11/03 [facility] CHEM PANEL CO2 28 meq/L 24 - 32 11/03 [facility] CHEM PANEL Bili Total 0.5 mg/dL 0.2 - 1.3 11/03 [facility] CHEM PANEL AGAP 10.7 meq/L 10.0 - 08 MH 20.0 /2014 [facility] CHEM PANEL B/C Ratio 8 6 - 25 11/03 [facility] CHEM PANEL Globulin 5.0 g/dL 2.0 - 4.0 11/03 [facility] CHEM PANEL A/G Ratio 0.6 0.7 - 1.6 11/03 [facility] CHEM PANEL AST 16 unit/L 0 - 37 11/03 [facility] CHEM PANEL Glucose Lvl 88 mg/dL 70 - 99 11/03 [facility] CHEM PANEL ALT 20 unit/L 0 - 65 11/03 [facility] CHEM PANEL Albumin Lvl 3.2 g/dL 3.5 - 5.0 11/03 [facility] CHEM PANEL Alk Phos 85 unit/L 39 - 136 11/03 Result Comment: Called Jane Giles at 11/03/2014 16:58 by RP. [place] issue, unable to run ALPI earlier today. 11/03/2014 16: 56 RP. [facility] HEMATOLOGY Basophils 0.8 % 0.0 - 1.0 11/03 [facility] HEMATOLOGY Lymphocytes 1.3 K/CMM 1.0 - 5.5 11/03 # /2014 [facility] HEMATOLOGY Segs-Bands # 2.4 K/CMM 1.5 - 8.1 11/03 [facility] HEMATOLOGY Monocytes # 0.4 K/CMM 0.0 - 0.8 11/03 [facility] HEMATOLOGY Microcyte 3+ None Seen 11/03 [facility] *NA* (11/03/14 9:00 AM) HEMATOLOGY Eosinophils 0.1 K/CMM 0.0 - 0.5 11/03 # /2014 [facility] HEMATOLOGY Segs 57.0 % 45.0 - 11/03 MH 75.0 /2014 [facility] HEMATOLOGY Lymphocytes 30.7 % 20.0 - 11/03 MH 40.0 /2014 [facility] HEMATOLOGY Eosinophils 1.7 % 0.0 - 4.0 11/03 [facility] HEMATOLOGY Monocytes 9.8 % 2.0 - 12.0 11/03 [facility] HEMATOLOGY Plt Morph Normal 11/03 [facility] (11/03/14 9:00 AM) HEMATOLOGY MPV 7.6 fL 7.4 - 10.4 11/03 [facility] HEMATOLOGY Platelet 259 K/CMM 133 - 450 11/03 [facility] HEMATOLOGY MCH 20.5 pg 27.0 - 11/03 31.0 /2014 [facility] HEMATOLOGY MCHC 30.3 g/dL 32.0 - 11/03 36.0 /2014 [facility] HEMATOLOGY RDW 17.4 % 11.5 - 11/03 14.5 /2014 [facility] Hgb 8.1 g/dL 12.0 - 11/03 16.0 [facility] Hct 26.7 % 36.0 - 11/03 48.0 /2014 [facility] HEMATOLOGY MCV 67.6 fL 80.0 - 11/03 98.0 [facility] HEMATOLOGY RBC 3.95 M/CMM 4.20 - 11/03 5.40 /2014 [facility] HEMATOLOGY WBC 4.2 K/CMM 3.7 - 10.4 11/03 [facility] HEMATOLOGY D-Dimer 0.27 ug/mL 11/03 FE [facility] Chest 2 Chest 2 PROCEDURE: Chest 2 views 11/03 - views DX views /2014 - [facility] CLINICAL INDICATION: Chest pain Read by: Sherman Ortega MD Dictated Date/time: 11/03/14 09:38 COMPARISON: March 07, 2013. 09/2006. 07/2006 multiple x-rays. Electronically Signed by: Sherman Ortega MD 11/03/14 09 :41 FINAL REPORT FINDINGS: There is blunting of the right costophrenic angle secondary to atelectasis or small pleural effusion. Enlarged cardiac silhouette. There is no pneumothorax. There is no free air under the diaphragm. The visualized osseous structures are normal for soft tissue technique. SL: 16 CHEMISTRY U Preg Negative Negative 03/07 Normal [facility] (03/07/2013 15:55:00) URINALYSIS UA Bili Negative Negative 03/07 [facility] *NA* (03/07/2013 15:55:00) URINALYSIS UA Blood Negative Negative 03/07 Normal [facility] (03/07/2013 15:55:00) URINALYSIS UA Ketones Negative Negative 03/07 [facility] *NA* (03/07/2013 15:55:00) URINALYSIS UA Protein Trace Negative 03/07 ABN [facility] *ABN* (03/07/2013 15:55:00) URINALYSIS UA Glucose Negative Negative 03/07 Normal [facility] (03/07/2013 15:55:00) URINALYSIS UA pH 7.5 5.0 - 8.0 03/07 Normal [facility] URINALYSIS UA Nitrite Negative Negative 03/07 Normal [facility] (03/07/2013 15:55:00) URINALYSIS UA 1.0 EU/dL 0.1 - 1.0 03/07 Urobilinogen [facility] URINALYSIS UA Leuk Est Negative Negative 03/07 [facility] (03/07/2013 15:55:00) URINALYSIS UA Spec Grav 1.015 <=1.030 03/07 Normal [facility] URINALYSIS UA Color Yellow Yellow 03/07 [facility] *NA* (03/07/2013 15:55:00) URINALYSIS UA Turbidity Clear Clear 03/07 Normal [facility] (03/07/2013 15:55:00) URINALYSIS UA Sq Epi Few /LPF Few 03/07 Normal [facility] URINALYSIS Micro? Performed 03/07 [facility] (03/07/2013 15:55:00) URINALYSIS UA Bacteria Occasional None Seen 03/07 Normal / [facility] CHEMISTRY CK-MB INDEX 0.2 0.0 - 2.5 03/07 Normal [facility] CHEMISTRY Lactic Acid 1.9 mMol/L 0.5 - 2.2 03/07 Normal Lvl [facility] CHEMISTRY CK MB 1.1 ng/mL 0.5 - 3.6 03/07 Normal [facility] CHEMISTRY Troponin-I null 0.00 - 03/07 Normal 0. [facility] CHEMISTRY eGFR 82 03/07 2Result Comment: The eGFR is calculated using the CKD-EPI formula. In most young, healthy individuals the eGFR will be >90 mL/ min/1.73m2. The eGFR declines with age. An eGFR of 60-89 may be normal in mL/min/1.7 /2013 some populations, particularly the elderly, for whom the CKD-EPI formula has not been extensively validated. Use of the eGFR is not recommended in the following populations: [facility] 3m2 Individuals with unstable creatinine concentrations, including patients and those with serious co-morbid conditions. Patients with extremes in muscle mass or diet. The data above are obtained from the National Kidney Disease Education Program (NKDEP) which additionally recommends that when the eGFR is used in patients with extremes of body mass index for purposes of drug dosing, the eGFR should be multiplied by the estimated BMI. CHEMISTRY BUN 7 mg/dL 7 - 22 03/07 Normal [facility] CHEMISTRY Potassium 3.9 meq/L 3.5 - 5.1 03/07 Normal Lvl [facility] CHEMISTRY Calcium Lvl 9.6 mg/dL 8.5 - 10.5 03/07 Normal [facility] CHEMISTRY AGAP 12.9 meq/L 10.0 - 03/07 Normal 20.0 [facility] CHEMISTRY Glucose Lvl 131 mg/dL 70 - 99 03/07 [place] 3Interpretive Data: Adult reference range values reflect the clinical guidelines of the [place] [employer]. [facility] CHEMISTRY Chloride Lvl 102 meq/L 95 - 109 03/07 Normal [facility] CHEMISTRY CO2 24 meq/L 24 - 32 03/07 Normal [facility] CHEMISTRY Creatinine 0.9 mg/dL 0.5 - 1.4 03/07 Normal Lvl [facility] CHEMISTRY Sodium Lvl 135 meq/L 135 - 145 03/07 Normal [facility] CHEMISTRY Total CK 469 unit/L 12 - 191 03/07 HI [facility] VIRAL - Influ A Negative Negative 03/07 Normal SEROLOGY /2012 [facility] (03/07/2013 09:45:37) VIRAL - Influ B Negative 1 Negative 03/07 Normal 1Interpretive Data: Influenza A&B Antigen: SEROLOGY /2012 Due to the low sensitivity of this test a negative result does not exclude influenza virus infection. A diagnosis of influenza should be considered based on a patient's clinical presentation and empiric [facility] (03/07/2013 09:45:37) antiviral treatment should be considered, if indicated. If more conclusive testing is desired, follow-up confirmatory testing with either viral culture or PCR is warranted. HEMATOLOGY Eosinophils 0.1 % 0.0 - 4.0 03/07 Normal [facility] HEMATOLOGY Basophils 0.0 % 0.0 - 1.0 03/07 Normal [facility] HEMATOLOGY Target Cell Slight None Seen 03/07 ABN /2012 [facility] *ABN* (03/07/2013 09:45:00) HEMATOLOGY Elliptocyte Slight None Seen 03/07 ABN /2012 [facility] *ABN* (03/07/2013 09:45:00) HEMATOLOGY Plt Morph Normal 03/07 Normal /2012 [facility] (03/07/2013 09:45:00) HEMATOLOGY Basophils # 0.0 K/CMM 0.0 - 0.2 03/07 Normal [facility] HEMATOLOGY Microcyte 1+ None Seen 03/07 ABN /2012 [facility] *ABN* (03/07/2013 09:45:00) HEMATOLOGY Lymphocytes 0.2 K/CMM 1.0 - 5.5 03/07 LOW MH # /2012 [facility] HEMATOLOGY Eosinophils 0.0 K/CMM 0.0 - 0.5 03/07 Normal MH # /2012 [facility] HEMATOLOGY Monocytes # 0.4 K/CMM 0.0 - 0.8 03/07 Normal /2012 [facility] HEMATOLOGY Segs-Bands # 6.7 K/CMM 1.5 - 8.1 03/07 Normal /2012 [facility] HEMATOLOGY Segs 91.4 % 45.0 - 03/07 HI MH 75.0 /2012 [facility] HEMATOLOGY Lymphocytes 3.3 % 20.0 - 03/07 LOW MH 40.0 [facility] HEMATOLOGY Monocytes 5.2 % 2.0 - 12.0 03/07 Normal [facility] HEMATOLOGY Polychrom Slight None Seen 03/07 Normal /2012 [facility] (03/07/2013 09:45:00) HEMATOLOGY Hypochrom Slight None Seen 03/07 Normal /2012 [facility] (03/07/2013 09:45:00) HEMATOLOGY RBC X 10x6 3.99 M/CMM 4.20 - 12 LOW MH 5.40 /2012 [facility] HEMATOLOGY Hgb 8.3 g/dL 12.0 - 03/07 LOW 16.0 /2012 [facility] HEMATOLOGY WBC X 10x3 7.3 K/CMM 3.7 - 10.4 03/07 Normal [facility] HEMATOLOGY Platelet 305 K/CMM 133 - 450 03/07 Normal /2012 [facility] HEMATOLOGY RDW 17.9 % 11.5 - 03/07 HI MH 14.5 /2012 [facility] HEMATOLOGY Hct 26.1 % 36.0 - 03/07 LOW MH 48.0 /2012 [facility] HEMATOLOGY MCH 20.7 pg 27.0 - 03/07 LOW MH 31.0 [facility] HEMATOLOGY MCV 65.4 fL 81.0 - 03/07 LOW MH 99.0 [facility] HEMATOLOGY MCHC 31.7 g/dL 32.0 - 03/07 LOW MH 36.0 [facility] HEMATOLOGY MPV 8.0 fL 7.4 - 10.4 03/07 Normal [facility] Chest 2 Chest 2 CHEST 2 VIEWS 03/07 - views views /2012 - [facility] HX: Fever COMPARISON: 10/05/2006 Read by: Rao Golden Dictated Date/time: 03/07/13 10:30 Electronically Signed by: Rao Golden MD 03/07/13 10:31 FINAL REPORT FINDINGS: The lungs are free of consolidation or pleural effusion and the mediastinal silhouette is within normal limits of size. The visualized osseous structures are grossly negative. IMPRESSION: Negative chest. SL: 15 Vital Signs Vital Sign Value Date Comments Source Heart Rate 71 10/13/2017 [facility] Respitory Rate 20 10/13/2017 [facility] Systolic (mm Hg) 105 10/13/2017 [facility] Diastolic (mm Hg) 72 10/13/2017 [facility] Temperature Oral (F) 98.2 F 10/13/2017 [facility] Temperature Oral (F) 98.2 F 10/13/2017 [facility] Heart Rate 74 10/13/2017 [facility] Systolic (mm Hg) 102 10/13/2017 [facility] Diastolic (mm Hg) 71 10/13/2017 [facility] Respitory Rate 20 10/13/2017 [facility] Weight 76 10/13/2017 [facility] BMI Calculated 28.76 10/13/2017 [facility] Height 162.56 cm 10/13/2017 [facility] Systolic (mm Hg) 109 10/13/2017 [facility] Diastolic (mm Hg) 77 10/13/2017 [facility] Heart Rate 85 10/13/2017 [facility] Respitory Rate 16 10/13/2017 [facility] Temperature Oral (F) 98.4 F 10/13/2017 [place] Heart Rate 58 05/02/2016 [place] Systolic (mm Hg) 93 05/02/2016 [facility] [place] Diastolic (mm Hg) 61 05/02/2016 [place] Respitory Rate 18 05/02/2016 [place] Temperature Oral (F) 98.2 F 05/02/2016 [place] Systolic (mm Hg) 85 05/02/2016 [place] Diastolic (mm Hg) 55 05/02/2016 [place] Heart Rate 69 05/02/2016 [facility] [place] Respitory Rate 18 05/02/2016 [place] Temperature Oral (F) 98.9 F 05/02/2016 [place] Systolic (mm Hg) 101 05/02/2016 [facility] [place] Diastolic (mm Hg) 60 05/02/2016 [place] Heart Rate 68 05/02/2016 [place] Respitory Rate 18 05/02/2016 [place] Temperature Oral (F) 98.2 F 05/02/2016 [place] BMI Calculated 28.38 05/01/2016 [place] Weight 75 05/01/2016 [place] Height 162.56 cm 04/24/2016 [place] Respitory Rate 18 03/18/2016 [facility] Systolic (mm Hg) 132 03/18/2016 [facility] Diastolic (mm Hg) 78 03/18/2016 [facility] Temperature Oral (F) 98.7 F 03/18/2016 [facility] Heart Rate 84 03/18/2016 [facility] Weight 76.364 03/17/2016 [facility] BMI Calculated 28.9 03/17/2016 [facility] Height 162.56 cm 03/17/2016 [facility] Temperature Oral (F) 102.4 F 03/17/2016 [facility] Systolic (mm Hg) 135 03/17/2016 [facility] Diastolic (mm Hg) 85 03/17/2016 [facility] Heart Rate 90 03/17/2016 [facility] Respitory Rate 18 03/17/2016 [facility] Temperature Oral (F) 98.1 F 08/03/2015 [facility] Respitory Rate 18 08/03/2015 [facility] Systolic (mm Hg) 120 08/03/2015 [facility] Diastolic (mm Hg) 81 08/03/2015 [facility] Heart Rate 66 08/03/2015 [facility] Systolic (mm Hg) 123 08/03/2015 [facility] Diastolic (mm Hg) 87 08/03/2015 [facility] Height 165.1 cm 08/03/2015 [facility] Heart Rate 74 08/03/2015 [facility] Respitory Rate 20 08/03/2015 [facility] BMI Calculated 26.68 08/03/2015 [facility] Weight 72.727 08/03/2015 [facility] Temperature Oral (F) 98.1 F 08/03/2015 [facility] Respitory Rate 18 04/08/2015 [facility] Systolic (mm Hg) 105 04/08/2015 [facility] Diastolic (mm Hg) 67 04/08/2015 [facility] Heart Rate 67 04/08/2015 [facility] Weight 78.324 04/08/2015 [facility] Respitory Rate 18 04/08/2015 [facility] Heart Rate 79 04/08/2015 [facility] Systolic (mm Hg) 100 04/08/2015 [facility] Diastolic (mm Hg) 67 04/08/2015 [facility] Heart Rate 60 04/08/2015 [facility] Respitory Rate 18 04/08/2015 [facility] Systolic (mm Hg) 101 04/08/2015 [facility] Diastolic (mm Hg) 64 04/08/2015 [facility] Temperature Oral (F) 97.5 F 04/08/2015 [facility] Temperature Oral (F) 97.9 F 04/08/2015 [facility] Temperature Oral (F) 98.6 F 04/08/2015 [facility] BMI Calculated 29.52 04/07/2015 [facility] Weight 80.455 04/07/2015 [facility] Height 165.1 cm 04/07/2015 [facility] Weight 80.455 04/07/2015 [facility] BMI Calculated 29.52 04/07/2015 [facility] Height 165.1 cm 04/07/2015 [facility] Respitory Rate 18 11/07/2014 [facility] Systolic (mm Hg) 108 11/07/2014 [place] Diastolic (mm Hg) 71 11/07/2014 [facility] Heart Rate 66 11/07/2014 [facility] Temperature Oral (F) 98.6 F 11/07/2014 [facility] Systolic (mm Hg) 81 11/07/2014 [facility] Diastolic (mm Hg) 53 11/07/2014 [facility] Heart Rate 66 11/07/2014 [facility] Respitory Rate 16 11/07/2014 [facility] Temperature Oral (F) 98.9 F 11/07/2014 [place] Systolic (mm Hg) 98 11/07/2014 [facility] Diastolic (mm Hg) 65 11/07/2014 [facility] Temperature Oral (F) 98.1 F 11/07/2014 [facility] Heart Rate 70 11/07/2014 [facility] Respitory Rate 18 11/07/2014 [facility] BMI Calculated 26.18 11/05/2014 [facility] Weight 71.364 11/05/2014 [facility] Height 165.1 cm 11/05/2014 [facility] Temperature Oral (F) 98.0 F 11/03/2014 [facility] Systolic (mm Hg) 111 11/03/2014 [facility] Diastolic (mm Hg) 74 11/03/2014 [facility] Respitory Rate 14 11/03/2014 [facility] Temperature Oral (F) 98.2 F 11/03/2014 [facility] Respitory Rate 14 11/03/2014 [facility] Systolic (mm Hg) 118 11/03/2014 [facility] Diastolic (mm Hg) 78 11/03/2014 [facility] Systolic (mm Hg) 126 11/03/2014 [place] Diastolic (mm Hg) 80 11/03/2014 [facility] Respitory Rate 15 11/03/2014 [facility] Heart Rate 70 11/03/2014 [facility] Weight 77 11/03/2014 [facility] Temperature Oral (F) 98.2 F 11/03/2014 [place] Diastolic (mm Hg) 51 03/08/2013 [facility] Heart Rate 105 03/08/2013 [facility] Temperature Oral (F) 100.1 F 03/08/2013 [facility] Systolic (mm Hg) 100 03/08/2013 [facility] Respitory Rate 18 03/08/2013 [facility] Temperature Oral (F) 102.8 F 03/08/2013 [facility] Temperature Oral (F) 103.1 F 03/08/2013 [facility] Systolic (mm Hg) 109 03/07/2013 [facility] Respitory Rate 18 03/07/2013 [facility] Diastolic (mm Hg) 71 03/07/2013 [facility] Heart Rate 101 03/07/2013 [facility] Systolic (mm Hg) 118 03/07/2013 [facility] Diastolic (mm Hg) 47 03/07/2013 [facility] Respitory Rate 16 03/07/2013 [facility] Heart Rate 88 03/07/2013 [facility] Diastolic (mm Hg) 64 03/07/2013 [facility] Respitory Rate 20 03/07/2013 [facility] Systolic (mm Hg) 108 03/07/2013 [facility] Heart Rate 84 03/07/2013 [facility] Temperature Oral (F) 99.1 F 03/07/2013 [facility] Systolic (mm Hg) 99 03/07/2013 [facility] Diastolic (mm Hg) 54 03/07/2013 [facility] Heart Rate 81 03/07/2013 [facility] Respitory Rate 20 03/07/2013 [facility] Systolic (mm Hg) 102 03/07/2013 [facility] Diastolic (mm Hg) 61 03/07/2013 [facility] Heart Rate 92 03/07/2013 [facility] Respitory Rate 19 03/07/2013 [facility] Temperature Oral (F) 101.2 F 03/07/2013 [facility] Height 162.56 cm 04/04/2012 [facility] Weight 72.727 04/04/2012 [facility] Encounters Location Location Encounter Encounter Reason Attending ADM DC Status Source Details Type Number For Provider Date Date Visit Emergency [id number] HABACUC 04/03 04/04 Active [facility] MERLE /2012 [facility] Emergency [id number] MELANIE 03/07 03/07 Active [facility] HOBERMAN /2012 [facility] Emergency [id number] ROSE 03/07 03/07 Active [facility] VAKEY /2012 [facility] Emergency [id number] Joy 11/03 11/03 [facility] [place] /2014 [facility] OBS [id number] Nabor Snow 11/05 11/07 [facility] Observation /2014 [facility] OBS [id number] Turin 04/07 04/08 [facility] Observation Rodriguez /2015 [facility] Emergency [id number] Sofiya 08/02 08/02 [facility] Arora /2015 [facility] Emergency [id number] Asim 03/17 03/18 [facility] Weather[place] /2015 [facility] Bedded [id number] Darren Mars 05/01 05/02 [facility]2016 [place] [facility] Emergency [id number] Young 10/13 10/13 Arthur Christy /2017 [facility] Procedures Procedure Code Date Perfomer Comments Source Laparoscopic [id number] 05/01/2016 [facility] hysterectomy Laparoscopic [id number] 05/01/2016 [facility] hysterectomy [id number] x 2 MH [facility] section<sup>1</sup > [id number] x 2 [facility] [place] section<sup>1</sup > [id number] x 2 [facility] section<sup>1</sup > [id number] x 2 [facility] [place] section<sup>1</sup >
--- OUTSIDE RECORDS SUMMARY | 2017-11-14 22:29 | XMS REPORT | Summary of Care ---
:1975 Author Organization [facility] Address [address], [place] [address]- Encounter HQ Freddie_yudelka(FIN) [id number] Date(s): 08/03/15 - 08/03/15 [id number] [place] [address]- Discharge Diagnosis: Pain, arm, right Discharge Disposition: Home Attending Physician: Sofiya Arora DO Vital Signs Most recent to oldest [Reference Range]: 1 2 Height 165.1 cm (08/03/15 9:34 AM) Temperature Oral [96.4-99.1 DegF] 98.1 DegF 98.1 DegF (08/03/15 10:47 AM) (08/03/15 9:34 AM) Blood Pressure [90-140/60-90 mmHg] 120/81 mmHg 123/87 mmHg (08/03/15 10:47 AM) (08/03/15 9:34 AM) Respiratory Rate [14-20 BRMIN] 18 BRMIN 20 BRMIN (08/03/15 10:47 AM) (08/03/15 9:34 AM) Peripheral Pulse Rate [60-100 bpm] 66 bpm 74 bpm (08/03/15 10:47 AM) (08/03/15 9:34 AM) Weight 72.727 kg (08/03/15 9:34 AM) Body Mass Index 26.68 m2 (08/03/15 9:34 AM) Problem List Condition Effective Dates Status Health Status Informant None(Confirmed) Resolved Allergies, Adverse Reactions, Alerts Substance Reaction Severity Status Vicodin Active Medications acetaminophen-codeine #3 1 tab, Route: PO, Drug Form: TAB, Dosing Weight 72.727, kg, ONCE, STAT, Start date: 08/03/15 10:03:00 CDT, Stop date: 08/03/15 10:03:00 CDT Notes: Do not exceed 4gm/day of acetaminophen. (Same as: Tylenol with Codeine # 3) Start Date: 08/03/15 Stop Date: 08/03/15 Status: Completedcyclobenzaprine 10 mg, 1 tab, Route: PO, Drug form: TAB, ONCE, Dosing Weight 72.727, kg, Priority: STAT, Start date:08/03/15 10:03:00 CDT, Stop date: 08/03/15 10:03:00 CDT Notes: (Same As: Flexeril) Start Date: 08/03/15 Stop Date: 08/03/15 Status: CompletedFlexeril 10 mg oral tablet 10 mg=1 tab, PO, TID, PRN for spasm, X 10 day, # 30 tab, 0 Refill(s) Start Date: 08/03/15 Stop Date: 08/13/15 Status: OrderedTylenol with Codeine #3 oral tablet 1 tab, PO, Q6H, PRN Pain, X 7 day, # 28 tab, 0 Refill(s) Start Date: 08/03/15 Stop Date: 08/10/15 Status: Ordered Results No data available for this section Immunizations No data available for this section Procedures Procedure Date Related Diagnosis Body Site section1 1x 2 Social History Social History Type Response Substance Abuse Use: None. Alcohol Never Smoking Status Never smoker; Exposure to Tobacco Smoke None; Cigarette Smoking Last 365 Days No; Reg Smoking Cessation Counseling No Assessment and Plan No data available for this section
--- OUTSIDE RECORDS SUMMARY | 2017-11-14 22:29 | XMS REPORT | CCD ---
:1975 Author Organization [facility] Care Team Providers Name Role Phone Trevor Mccann Consulting Provider Allergies, Adverse Reactions, Alerts Substance Reaction Status Vicodin Active Medications Medication Instructions Start Date End Date Status ondansetron 4 mg oral 4 mg, 1 tab, Route: PO, 03/07/2013 03/07/2013 Completed tablet, disintegrating Drug form: TABDIS, ONCE, Dosing Weight 72.727, kg, Priority: STAT, Start date: 03/07/13 15:40:00, Stop date: 03/07/13 15:40:00(Same as: Loni SHAH) ibuprofen 600 mg, 1 tab, Route: PO, 03/07/2013 03/07/2013 Completed Drug form: TAB, ONCE, Dosing Weight 72.727, kg, Priority: STAT, Start date: 03/07/13 18:19:00, Stop date: 03/07/13 18:19:00(Same as: Motrin)"Do Not Crush" Take with food. Tylenol 975 mg, 3 tab, Route: PO, 03/07/2013 03/07/2013 Completed Drug form: TAB, ONCE, Dosing Weight 72.727, kg, Priority: STAT, Start date: 03/07/13 17:29:00, Stop date: 03/07/13 17:29:00Do not exceed 4 gm/day. (Same as: Tylenol) ibuprofen 600 mg oral tablet 600 mg=1 tab, PO, Q6H, as needed for fever, take with food, # 30 tab, 0 Refill(s) 03/07/2013 Ordered take with food Tessalon Perles 100 mg oral 100 mg=1 cap, PO, TID, # 03/07/2013 03/14/2013 Ordered capsule 21 cap, 0 Refill(s) ondansetron 4 mg oral 4 mg=1 tab, PO, TID, Nausea / Vomiting, Dissolve tab under tongue, # 10 tab, 0 Refill(s) 03/07/2013 03/10/2013 Ordered tablet, disintegrating Dissolve tab under tongue Vital Signs Most recent to oldest 1 2 3 [Reference Range]: Temperature Oral 100.1 DegF 102.8 DegF 103.1 DegF [96.4-99.1 DegF] *HI* *HI* *HI* (03/07/2013 19:37:00) (03/07/2013 18:54:00) (03/07/2013 18:22:00) Systolic Blood Pressure 100 mmHg 109 mmHg 118 mmHg [90-140 mmHg] (03/07/2013 19:37:00) (03/07/2013 17:25:00) (03/07/2013 14:11: 00) Diastolic Blood Pressure 51 mmHg 71 mmHg 47 mmHg [60-90 mmHg] *LOW* (03/07/2013 17:25:00) *LOW* (03/07/2013 19:37:00) (03/07/2013 14:11:00) Respiratory Rate [14-20 18 BRMIN 18 BRMIN 16 BRMIN BRMIN] (03/07/2013 19:37:00) (03/07/2013 17:25:00) (03/07/2013 14:11:00) Peripheral Pulse Rate 105 bpm 101 bpm 88 bpm [60-100 bpm] *HI* *HI* (03/07/2013 14:11:00) (03/07/2013 19:37:00) (03/07/2013 17:25:00) Results URINALYSIS Most recent to oldest [Reference Range]: 1 UA Turbidity [Clear] Clear (03/07/2013 15:55:00) UA Color [Yellow] Yellow *NA* (03/07/2013 15:55:00) UA pH [5.0-8.0] 7.5 (03/07/2013 15:55:00) UA Spec Grav [<=1.030] 1.015 (03/07/2013 15:55:00) UA Glucose [Negative] Negative (03/07/2013 15:55:00) UA Blood [Negative] Negative (03/07/2013 15:55:00) UA Ketones [Negative] Negative *NA* (03/07/2013 15:55:00) UA Protein [Negative] Trace *ABN* (03/07/2013 15:55:00) UA Urobilinogen [0.1-1.0 EU/dL] 1.0 EU/dL (03/07/2013 15:55:00) UA Bili [Negative] Negative *NA* (03/07/2013 15:55:00) UA Leuk Est [Negative] Negative (03/07/2013 15:55:00) UA Nitrite [Negative] Negative (03/07/2013 15:55:00) UA Bacteria [None Seen /HPF] Occasional /HPF (03/07/2013 15:55:00) UA Sq Epi [Few /LPF] Few /LPF (03/07/2013 15:55:00) Micro? Performed (03/07/2013 15:55:00) CHEMISTRY Most recent to oldest [Reference Range]: 1 U Preg [Negative] Negative (03/07/2013 15:55:00)
--- OUTSIDE RECORDS SUMMARY | 2017-11-14 22:29 | XMS REPORT | CCD ---
:1975 Author Organization [facility] Care Team Providers Name Role Phone Shala Stephenson Consulting Provider Allergies, Adverse Reactions, Alerts Substance Reaction Status Vicodin Active Medications Medication Instructions Start Date End Date Status Ultram 50 mg oral tablet 50 mg, 1 tab, PO, Q4H, PRN, 04/04/2012 Ordered 20 tab, pain, Substitution Allowed amoxicillin 500 mg oral 500 mg, 1 tab, PO, TID, 30 04/04/2012 04/14/2012 Ordered tablet tab, Substitution Allowed, TAB Vital Signs Most recent to oldest [Reference Range]: 1 Height 162.56 cm (04/03/2012 21:37:00) Weight 72.727 kg (04/03/2012 21:37:00)
--- OUTSIDE RECORDS SUMMARY | 2017-11-14 22:29 | XMS REPORT | Summary of Care ---
:1975 Author Organization [facility] Address [address], [place] [address]- Encounter HQ Udayr_yudelka(FIN) [id number] Date(s): 11/05/14 - 11/07/14 [facility] [address] [place] [address]- Discharge Disposition: Home Attending Physician: Nabor Snow DO Admitting Physician: Nabor nSow DO Vital Signs Most recent to oldest [Reference Range]: 1 2 3 Height 165.1 cm (11/05/14 2:27 PM) Most recent to oldest 1 2 3 [Reference Range]: Temperature Oral [96.4-99.1 98.6 DegF 98.9 DegF 98.1 DegF DegF] (11/07/14 12:53 PM) (11/07/14 7:53 AM) (11/07/14 4:00 AM) Most recent to oldest 1 2 3 [Reference Range]: Blood Pressure [90-140/60-90 108/71 mmHg 81/53 mmHg 98/65 mmHg mmHg] (11/07/14 12:53 PM) *LOW* (11/07/14 4:00 AM) (11/07/14 7:53 AM) Most recent to oldest 1 2 3 [Reference Range]: Respiratory Rate [14-20 BRMIN] 18 BRMIN 16 BRMIN 18 BRMIN (11/07/14 12:53 PM) (11/07/14 7:53 AM) (11/07/14 4:00 AM) Most recent to oldest 1 2 3 [Reference Range]: Peripheral Pulse Rate [60-100 66 bpm 66 bpm 70 bpm bpm] (11/07/14 12:53 PM) (11/07/14 7:53 AM) (11/07/14 4:00 AM) Most recent to oldest [Reference Range]: 1 2 3 Weight 71.364 kg (11/05/14 2:27 PM) Most recent to oldest [Reference Range]: 1 2 3 Body Mass Index 26.18 m2 (11/05/14 2:27 PM) Problem List Condition Effective Dates Status Health Status Informant None(Confirmed) Resolved Allergies, Adverse Reactions, Alerts Substance Reaction Severity Status Vicodin Active Medications aspirin 324 mg, Route: PO, ONCE, Dosing Weight 71.364, kg, Priority: STAT, Start date: 11/05/14 14:58:00, Stop date: 11/05/14 14:58:00 Start Date: 11/05/14 Stop Date: 11/05/14 Status: Completedatropine 0.5 mg, 5 mL, Route: IVP, Drug form: INJ, PRN, PRN Bradycardia, Start date: 20:34:00, Duration: 30 day, Stop date: 12/05/14 20:33:00 Start Date: 11/05/14 Stop Date: 11/08/14 Status: DiscontinuedBactrim DS 800 mg- 160 mg oral tablet 1 tab, Route: PO, Drug Form: TAB, Dosing Weight 71.364, kg, BID, Start date: 17:00:00, Duration: 30 day, Stop date: 12/05/14 9:00:00 Notes: One DS tablet=trimethoprim 160mg + sulfamethoxazole 800 mgDose based on trimethoprim component On empty stomach with a glass of water. 1 hr before meals (Same As: Bactrim DS, Septra DS) Start Date: 11/05/14 Stop Date: 11/08/14 Status: DiscontinuedBactrim DS 800 mg- 160 mg oral tablet 1 tab, PO, BID, X 5 day, # 10 tab, 0 Refill(s) Start Date: 11/06/14 Stop Date: 11/11/14 Status: OrderedcefTRIAXone 1 gm, Route: IVPB, Drug form: PDR/INJ, ONCE, Dosing Weight 71.364, kg, Priority : STAT, Start date: 11/05/14 15:52:00, Stop date: 11/05/14 15:52:00 Start Date: 11/05/14 Stop Date: 11/05/14 Status: Discontinuedferrous sulfate 325 mg, 1 tab, Route: PO, Drug form: ECTAB, TID, Dosing Weight 71.364, kg, Priority: NOW, Start date: 11/06/14 9:50:00, Duration: 30 day, Stop date: 9:00:00 Notes: Give with food. "Do Not Crush" Start Date: 11/06/14 Stop Date: 11/08/14 Status: Discontinuediron sulfate (ferrous sulfate) 325 mg oral tablet 325 mg, PO, TID, # 90 tab, 1 Refill(s) Start Date: 11/06/14 Status: OrderedketOROLAC 30 mg, Route: IVP, Drug form: INJ, ONCE, Dosing Weight 71.364, kg, Priority: STAT, Start date: 11/05/14 15:39:00, Stop date: 11/05/14 15:39:00 Start Date: 11/05/14 Stop Date: 11/05/14 Status: DiscontinuedMiraLax 17 gm, 1 pkt, Route: PO, Drug form: PWDR, Daily, Dosing Weight 71.364, kg, Priority: NOW, Start date: 11/06/14 18:38:00, Duration: 30 day, Stop date: 12/06 9:00:00 Notes: Dissolve in 8 oz of water or juice.(Same as: Miralax) Start Date: 11/06/14 Stop Date: 11/08/14 Status: Discontinuedmorphine Sulfate 2 mg, Route: IVP, Drug form: INJ, ONCE, Dosing Weight 71.364, kg, Priority: STAT , Start date: 11/05/14 15:20:00, Stop date: 11/05/14 15:20:00 Start Date: 11/05/14 Stop Date: 11/05/14 Status: Completednitroglycerin 0.4 mg sublingual tablet 0.4 mg, 1 tab, Route: SL, Drug form: TAB, Q5Min, PRN Chest Pain, Start date: 20:34:00, Duration: 30 day, Stop date: 12/05/14 20:33:00 Notes: (Same as:Nitroquick, Nitrostat)"Do Not Crush" Sublingual tablet Start Date: 11/05/14 Stop Date: 11/08/14 Status: DiscontinuedSaline Flush 0.9% 10 ml, Route: IVP, Drug Form: INJ, Dosing Weight 71.364, kg, PRN, PRN Line Flush , Start date: 11/05/14 20:11:00, Duration: 30 day, Stop date: 12/05/14 20:10:00 Notes: Same as: BD Posiflush Sterile Start Date: 11/05/14 Stop Date: 11/08/14 Status: DiscontinuedSaline Flush 0.9% 10 mL, Route: IVP, Drug Form: INJ, Dosing Weight 71.364, kg, PRN, PRN Line Flush , Start date: 11/05/14 14:58:00, Duration: 30 day, Stop date: 12/05/14 14:57:00 Notes: Same as: BD Posiflush Sterile Start Date: 11/05/14 Stop Date: 11/08/14 Status: DiscontinuedTylenol 650 mg, 2 tab, Route: PO, Drug form: TAB, Q6H, Dosing Weight 71.364, kg, PRN Pain Score 1-3, Start date: 11/06/14 18:35:00, Duration: 30 day, Stop date: 18:34:00 Notes: Do not exceed 4 gm/day. (Same as: Tylenol) Start Date: 11/06/14 Stop Date: 11/08/14 Status: Discontinued Results BLOOD BANK RESULTS Most recent to oldest [Reference Range]: 1 2 ABO/Rh B POS 1 *Unknown* (11/05/14 4:23 PM) Antibody Scrn Negative (11/05/14 4:23 PM) 1Result Comment: 11/05/2014 16:43 SEPATEL notify to Sanam 11/05/2014 16:43 by [email or web address] Most recent to oldest [Reference Range]: 1 2 Sodium Lvl [135-145 mEq/L] 139 mEq/L 138 mEq/L (11/06/14 4:19 AM) (11/05/14 3:02 PM) Potassium Lvl [3.5-5.1 mEq/L] 4.4 mEq/L 3.5 mEq/L (11/06/14 4:19 AM) (11/05/14 3:02 PM) Chloride Lvl [95-109 mEq/L] 107 mEq/L 104 mEq/L (11/06/14 4:19 AM) (11/05/14 3:02 PM) CO2 [24-32 mEq/L] 20 mEq/L 27 mEq/L *LOW* (11/05/14 3:02 PM) (11/06/14 4:19 AM) AGAP [10.0-20.0 mEq/L] 16.4 mEq/L 10.5 mEq/L (11/06/14 4:19 AM) (11/05/14 3:02 PM) CHEM PANEL Most recent to oldest [Reference Range]: 1 2 Creatinine Lvl [0.5-1.4 mg/dL] 0.8 mg/dL 0.8 mg/dL (11/06/14 4:19 AM) (11/05/14 3:02 PM) eGFR 107 mL/min/1.73m2 2 104 mL/min/1.73m2 3 *NA* *NA* (11/06/14:19 AM) (11/05/14 3:02 PM) BUN [7-22 mg/dL] 7 mg/dL 7 mg/dL (11/06/14 4:19 AM) (11/05/14 3:02 PM) B/C Ratio [6-25] 9 9 (11/06/14 4:19 AM) (11/05/14 3:02 PM) Glucose Lvl [70-99 mg/dL] 88 mg/dL 87 mg/dL (11/06/14 4:19 AM) (11/05/14 3:02 PM) Total Protein [6.4-8.4 g/dL] 7.7 g/dL 8.2 g/dL (11/06/14 4:19 AM) (11/05/14 3:02 PM) Albumin Lvl [3.5-5.0 g/dL] 2.9 g/dL 3.2 g/dL *LOW* *LOW* (11/06/14 4:19 AM) (11/05/14 3:02 PM) Globulin [2.0-4.0 g/dL] 4.8 g/dL 5.0 g/dL *HI* *HI* (11/06/14 4:19 AM) (11/05/14 3:02 PM) A/G Ratio [0.7-1.6] 0.6 0.6 *LOW* *LOW* (11/06/14 4:19 AM) (11/05/14 3:02 PM) Calcium Lvl [8.5-10.5 mg/dL] 9.5 mg/dL 9.8 mg/dL (11/06/14 4:19 AM) (11/05/14 3:02 PM) ALT [0-65 unit/L] 21 unit/L 18 unit/L (11/06/14 4:19 AM) (11/05/14 3:02 PM) AST [0-37 unit/L] 27 unit/L 17 unit/L (11/06/14:19 AM) (11/05/14 3:02 PM) Alk Phos [39-136 unit/L] 81 unit/L 83 unit/L (11/06/14 4:19 AM) (11/05/14 3:02 PM) LDH [98-192 unit/L] 114 unit/L (11/05/14 11:28 PM) Bili Total [0.2-1.3 mg/dL] 0.4 mg/dL 0.3 mg/dL (11/06/14:19 AM) (11/05/14 3:02 PM) 2Result Comment: The eGFR is calculated using the CKD-EPI formula. In most young , healthy individualsthe eGFR will be >90 mL/min/1.73m2. The eGFR declines with age. An eGFR of 60-89 may be normal in some populations, particularly the elderly, for whom the CKD-EPI formula has not been extensively validated. Use of the eGFR is not recommended in the following populations: Individuals with unstable creatinine concentrations, including patients and those with serious co-morbid conditions. Patients with extremes in muscle mass or diet. The data above are obtained from the National Kidney Disease Education Program ( NKDEP) which additionally recommends that when the eGFR is used in patients with extremes of body mass index for purposesof drug dosing, the eGFR should be multiplied by the estimated BMI.3Result Comment: The eGFR is calculated using the CKD-EPI formula. In most young, healthy individualsthe eGFR will be >90 mL/ min/1.73m2. The eGFR declines with age. An eGFR of 60-89 may be normal in some populations, particularly the elderly, for whom the CKD-EPI formula has not been extensively validated. Use of the eGFR is not recommended in the following populations: Individuals with unstable creatinine concentrations, including patients and those with serious co-morbid conditions. Patients with extremes in muscle mass or diet. The data above are obtained from the National Kidney Disease Education Program ( NKDEP) which additionally recommends that when the eGFR is used in patients with extremes of body mass index for purposesof drug dosing, the eGFR should be multiplied by the estimated BMI.CARDIAC ENZYMES Most recent to oldest [Reference Range]: 1 2 Total CK [12-191 unit/L] 136 unit/L 148 unit/L (11/06/14 3:27 PM) (11/05/14 3:02 PM) CK MB [0.5-3.6 ng/mL] 0.6 ng/mL <0.5 ng/mL (11/06/14 3:27 PM) (11/05/14 3:02 PM) CK MB Index [0.0-2.5] 0.4 <0.3 (11/06/14 3:27 PM) (11/05/14 3:02 PM) Troponin-I [0.00-0.40 ng/mL] <0.02 ng/mL <0.02 ng/mL (11/06/14 3:27 PM) (11/05/14 3:02 PM) ANEMIA STUDY Most recent to oldest [Reference Range]: 1 2 Iron [30-160 ug/dl] 15 ug/dl *LOW* (11/05/14 11:28 PM) Ferritin Lvl [5-204 ng/mL] 2 ng/mL *LOW* (11/05/14 11:28 PM) % Satur Fe [12-57 %] 3 % *LOW* (11/05/14 11:28 PM) UIBC [110-370 ug/dl] 419 ug/dl *HI* (11/05/14 11:28 PM) Vitamin B12 Lvl [254-1320 pg/mL] 567 pg/mL (11/05/14 11:28 PM) Folate Lvl [>=3.0 ng/mL] 10.4 ng/mL (11/05/14 11:28 PM) RBC Folate [280-791 ng/mL] 1058 ng/mL *HI* (11/05/14 11:28 PM) TIBC [228-428 ug/dl] 434 ug/dl *HI* (11/05/14 11:28 PM) URINE AND STOOL Most recent to oldest [Reference Range]: 1 2 Occult Bld Stl [Negative] Negative (11/05/14 5:15 PM) IMMUNOLOGY Most recent to oldest [Reference Range]: 1 2 Homocyst Tot [3.7-13.9 uMol/L] 12.8 uMol/L (11/05/14 11:28 PM) HEMATOLOGY Most recent to oldest [Reference Range]: 1 2 WBC [3.7-10.4 K/CMM] 5.1 K/CMM 5.0 K/CMM (11/06/14 4:19 AM) (11/05/14 3:02 PM) RBC [4.20-5.40 M/CMM] 4.00 M/CMM 4.01 M/CMM *LOW* *LOW* (11/06/14 4:19 AM) (11/05/14 3:02 PM) Hgb [12.0-16.0 g/dL] 8.4 g/dL 8.2 g/dL *LOW* *LOW* (11/06/14 4:19 AM) (11/05/14 3:02 PM) Hct [36.0-48.0 %] 27.6 % 27.4 % *LOW* *LOW* (11/06/14 4:19 AM) (11/05/14 3:02 PM) MCV [80.0-98.0 fL] 68.8 fL 68.4 fL *LOW* *LOW* (11/06/14 4:19 AM) (11/05/14 3:02 PM) MCH [27.0-31.0 pg] 21.1 pg 20.4 pg *LOW* *LOW* (11/06/14 4:19 AM) (11/05/14 3:02 PM) MCHC [32.0-36.0 g/dL] 30.6 g/dL 29.8 g/dL *LOW* *LOW* (11/06/14 4:19 AM) (11/05/14 3:02 PM) RDW [11.5-14.5 %] 17.5 % 17.2 % *HI* *HI* (11/06/14 4:19 AM) (11/05/14 3:02 PM) Platelet [133-450 K/CMM] 257 K/CMM 281 K/CMM (11/06/14 4:19 AM) (11/05/14 3:02 PM) MPV [7.4-10.4 fL] 8.2 fL 7.6 fL (11/06/14 4:19 AM) (11/05/14 3:02 PM) Segs [45.0-75.0 %] 54.4 % 63.4 % (11/06/14 4:19 AM) (11/05/14 3:02 PM) Lymphocytes [20.0-40.0 %] 31.6 % 24.6 % (11/06/14 4:19 AM) (11/05/14 3:02 PM) Monocytes [2.0-12.0 %] 10.8 % 10.2 % (11/06/14 4:19 AM) (11/05/14 3:02 PM) Eosinophils [0.0-4.0 %] 2.3 % 1.5 % (11/06/14 4:19 AM) (11/05/14 3:02 PM) Basophils [0.0-1.0 %] 0.9 % 0.3 % (11/06/14 4:19 AM) (11/05/14 3:02 PM) Segs-Bands # [1.5-8.1 K/CMM] 2.8 K/CMM 3.2 K/CMM (11/06/14 4:19 AM) (11/05/14 3:02 PM) Lymphocytes # [1.0-5.5 K/CMM] 1.6 K/CMM 1.2 K/CMM (11/06/14 4:19 AM) (11/05/14 3:02 PM) Monocytes # [0.0-0.8 K/CMM] 0.6 K/CMM 0.5 K/CMM (11/06/14 4:19 AM) (11/05/14 3:02 PM) Eosinophils # [0.0-0.5 K/CMM] 0.1 K/CMM 0.1 K/CMM (11/06/14 4:19 AM) (11/05/14 3:02 PM) RBC Morph See Note (11/05/14 3:02 PM) Hypochrom [None Seen] 1+ (11/05/14 3:02 PM) Microcyte [None Seen] 3+ 3+ *NA* *NA* (11/06/14 4:19 AM) (11/05/14 3:02 PM) Plt Morph Normal (11/05/14 3:02 PM) Retic Auto [0.5-1.5 %] 1.7 % *HI* (11/05/14 11:28 PM) PT [12.0-14.7 seconds] 15.1 seconds *HI* (11/05/14 3:02 PM) INR [0.85-1.17] 1.18 *HI* (11/05/14 3:02 PM) PTT [22.9-35.8 seconds] 29.7 seconds (11/05/14 3:02 PM) Immunizations No data available for this section Procedures Procedure Date Related Diagnosis Body Site section1 1x 2 Social History Social History Type Response Alcohol Current, Frequency: 1-2 times per month. Smoking Status Never smoker; Exposure to Tobacco Smoke None; Cigarette Smoking Last 365 Days No; Reg Smoking Cessation Counseling No Assessment and Plan No data available for this section
--- OUTSIDE RECORDS SUMMARY | 2017-11-14 22:29 | XMS REPORT | Summary of Care ---
:1975 Author Organization [facility] Address [address], [place] [address]- Encounter HQ Freddie_yudelka(FIN) [id number] Date(s): 04/07/15 - 04/08/15 [facility] [address] [place] [address]- Discharge Disposition: Home Attending Physician: Sunny Rodriguez MD Vital Signs Most recent to oldest 1 2 3 [Reference Range]: Height 165.1 cm 165.1 cm (04/07/15 5:28 PM) (04/07/15 7:01 AM) Temperature Oral [96.4-99.1 97.5 DegF 97.9 DegF 98.6 DegF DegF] (04/08/15 4:00 AM) (04/08/15 12:00 AM) (04/07/15 8:00 PM) Blood Pressure [90-140/60-90 105/67 mmHg 100/67 mmHg 101/64 mmHg mmHg] (04/08/15 3:27 PM) (04/08/15 11:49 AM) (04/08/15 7:34 AM) Respiratory Rate [14-20 BRMIN] 18 BRMIN 18 BRMIN 18 BRMIN (04/08/15 3:27 PM) (04/08/15 11:49 AM) (04/08/15 7:34 AM) Peripheral Pulse Rate [60-100 67 bpm 79 bpm 60 bpm bpm] (04/08/15 3:27 PM) (04/08/15 11:49 AM) (04/08/15 7:34 AM) Weight 78.324 kg 80.455 kg 80.455 kg (04/08/15 1:07 PM) (04/07/15 5:28 PM) (04/07/15 7:01 AM) Body Mass Index 29.52 m2 29.52 m2 (04/07/15 5:28 PM) (04/07/15 7:01 AM) Problem List Condition Effective Dates Status Health Status Informant None(Confirmed) Resolved Allergies, Adverse Reactions, Alerts Substance Reaction Severity Status Vicodin Active Medications aspirin 324 mg, 4 tab, Route: PO, Drug form: CHEWTAB, ONCE, Dosing Weight 80.455, kg, Priority: STAT, Start date: 04/07/15 7:23:00, Stop date: 04/07/15 7:23:00 Notes: Take with food. Start Date: 04/07/15 Stop Date: 04/07/15 Status: Completedaspirin 325 mg tablet, enteric coated 325 mg, 1 tab, Route: PO, Drug form: ECTAB, Daily, Dosing Weight 80.455, kg, Start date: 04/08/15 9:00:00, Duration: 30 day, Stop date: 05/07/15 9:00:00 Notes: (Do Not Crush) Do not crush or chew. Start Date: 04/08/15 Stop Date: 04/08/15 Status: Discontinuedaspirin 81 mg tablet, enteric coated 81 mg=1 tab, PO, Daily, # 90 tab, 3 Refill(s), other Start Date: 04/08/15 Status: Orderedmetoprolol tartrate 25 mg, 1 tab, Route: PO, Drug form: TAB, Q6H, Dosing Weight 80.455, kg, Start date: 04/07/15 18:00:00, Duration: 30 day, Stop date: 05/07/15 12:00:00 Notes: (Same as: Lopressor) Start Date: 04/07/15 Stop Date: 04/08/15 Status: Discontinuednitroglycerin 0.4 mg sublingual tablet 0.4 mg, 1 tab, Route: SL, Drug form: TAB, Q5Min, Dosing Weight 80.455, kg, Start date: 04/07/15 7:25:00, Duration: 3 doses or times, Stop date: 04/07/15 7: 35:00 Notes: (Same as:Nitroquick, Nitrostat)"Do Not Crush" Sublingual tablet Start Date: 04/07/15 Stop Date: 04/07/15 Status: Completednitroglycerin SL Tab 0.4 mg, 1 tab, Route: SL, Drug form: TAB, Q5Min, Dosing Weight 80.455, kg, PRN Chest Pain, Start date: 04/07/15 14:15:00, Duration: 3 doses or times, Stop date : Limited # of times Notes: (Same as:Nitroquick, Nitrostat)"Do Not Crush" Sublingual tablet Start Date: 04/07/15 Stop Date: 04/08/15 Status: DiscontinuedNS (Bolus) IV 1,000 mL, 1,000 ml/hr, Infuse Over: 1 hr, Route: IV, ONCE, Priority: STAT, Dosing Weight 80.455 kg, Start date: 04/07/15 9:37:00, Duration: 1 doses or times, Stop date: 04/07/15 9:37:00 Start Date: 04/07/15 Stop Date: 04/07/15 Status: CompletedSaline Flush 0.9% 10 ml, Route: IVP, Drug Form: INJ, Dosing Weight 80.455, kg, PRN, PRN Line Flush , Start date: 04/07/15 14:15:00, Duration: 30 day, Stop date: 05/07/15 14:14:00 Notes: (Same as: BD Posiflush) Start Date: 04/07/15 Stop Date: 04/08/15 Status: DiscontinuedSaline Flush 0.9% 10 ml, Route: IVP, Drug Form: INJ, Dosing Weight 80.455, kg, Q12H, Start date: 04/07/15 21:00:00, Duration: 30 day, Stop date: 05/07/15 9:00:00 Notes: (Same as: BD Posiflush) Start Date: 04/07/15 Stop Date: 04/08/15 Status: DiscontinuedSaline Flush 0.9% 10 mL, Route: IVP, Drug Form: INJ, Dosing Weight 80.455, kg, PRN, PRN Line Flush , Start date: 04/07/15 7:23:00, Duration: 30 day, Stop date: 05/07/15 7:22:00 Notes: (Same as: BD Posiflush) Start Date: 04/07/15 Stop Date: 04/08/15 Status: DiscontinuedSodium Chloride 0.9% IV 1,000 mL 1,000 mL, Rate: 125 ml/hr, Infuse over: 8 hr, Route: IV, Dosing Weight 80.455 kg , Total Volume: 1,000, Start date: 04/07/15 19:28:00, Duration: 30 day, Stop date: 05/07/15 19:27:00 Start Date: 04/07/15 Stop Date: 04/08/15 Status: Discontinued Results ELECTROLYTES Most recent to oldest [Reference Range]: 1 2 3 Sodium Lvl [135-145 mEq/L] 138 mEq/L 139 mEq/L (04/08/15 5:10 AM) (04/07/15 7:28 AM) Potassium Lvl [3.5-5.1 mEq/L] 4.2 mEq/L 4.0 mEq/L (04/08/15 5:10 AM) (04/07/15 7:28 AM) Chloride Lvl [95-109 mEq/L] 106 mEq/L 104 mEq/L (04/08/15 5:10 AM) (04/07/15 7:28 AM) CO2 [24-32 mEq/L] 21 mEq/L 24 mEq/L *LOW* (04/07/15 7:28 AM) (04/08/15 5:10 AM) AGAP [10.0-20.0 mEq/L] 15.2 mEq/L 15.0 mEq/L (04/08/15 5:10 AM) (04/07/15 7:28 AM) CHEM PANEL Most recent to oldest [Reference Range]: 1 2 3 Creatinine Lvl [0.50-1.40 mg/dL] 0.60 mg/dL 0.75 mg/dL (04/08/15 5:10 AM) (04/07/15 7:28 AM) eGFR 132 mL/min/1.73m2 1 115 mL/min/1.73m2 2 *NA* *NA* (04/08/15 5:10 AM) (04/07/15 7:28 AM) BUN [7-22 mg/dL] 8 mg/dL 9 mg/dL (04/08/15 5:10 AM) (04/07/15 7:28 AM) B/C Ratio [6-25] 13 12 (04/08/15 5:10 AM) (04/07/15 7:28 AM) Glucose Lvl [70-99 mg/dL] 86 mg/dL 118 mg/dL (04/08/15 5:10 AM) *HI* (04/07/15 7:28 AM) Total Protein [6.4-8.4 g/dL] 7.7 g/dL 8.4 g/dL (04/08/15 5:10 AM) (04/07/15 7:28 AM) Albumin Lvl [3.5-5.0 g/dL] 2.7 g/dL 3.0 g/dL *LOW* *LOW* (04/08/15 5:10 AM) (04/07/15 7:28 AM) Globulin [2.0-4.0 g/dL] 5.0 g/dL 5.4 g/dL *HI* *HI* (04/08/15 5:10 AM) (04/07/15 7:28 AM) A/G Ratio [0.7-1.6] 0.5 0.6 *LOW* *LOW* (04/08/15 5:10 AM) (04/07/15 7:28 AM) Calcium Lvl [8.5-10.5 mg/dL] 9.4 mg/dL 9.5 mg/dL (04/08/15 5:10 AM) (04/07/15 7:28 AM) ALT [0-65 unit/L] 25 unit/L 24 unit/L (04/08/15 5:10 AM) (04/07/15 7:28 AM) AST [0-37 unit/L] 39 unit/L 19 unit/L *HI* (04/07/15 7:28 AM) (04/08/15 5:10 AM) Alk Phos [39-136 unit/L] 91 unit/L 107 unit/L (04/08/15 5:10 AM) (04/07/15 7:28 AM) Bili Total [0.2-1.3 mg/dL] 0.4 mg/dL 0.2 mg/dL (04/08/15 5:10 AM) (04/07/15 7:28 AM) 1Result Comment: The eGFR is calculated using the [...] eGFR should be multiplied by the estimated BMI.2Result Comment: The eGFR is calculated using the [...] estimated BMI.CARDIAC ENZYMES Most recent to oldest 1 2 3 [Reference Range]: Total CK [12-191 unit/L] 217 unit/L 257 unit/L 219 unit/L *HI* *HI* *HI* (04/08/15 5:10 AM) (04/07/15 5:25 PM) (04/07/15 7:28 AM) CK MB [0.5-3.6 ng/mL] 0.7 ng/mL 1.1 ng/mL 1.2 ng/mL (04/08/15 5:10 AM) (04/07/15 5:25 PM) (04/07/15 7:28 AM) CK MB Index [0.0-2.5] 0.3 0.4 0.5 (04/08/15 5:10 AM) (04/07/15 5:25 PM) (04/07/15 7:28 AM) Troponin-I [0.00-0.40 ng/mL] <0.02 ng/mL <0.02 ng/mL <0.02 ng/mL (04/07/15 5:25 PM) (04/07/15 9:59 AM) (04/07/15 7:28 AM) BNP [<=100 pg/mL] 45 pg/mL (04/07/15 7:28 AM) LIPIDS Most recent to oldest [Reference Range]: 1 2 3 CHD Risk [3.90-5.80] 3.45 *LOW* (04/08/15 5:10 AM) Chol [<=199 mg/dL] 183 mg/dL (04/08/15 5:10 AM) Trig [<=149 mg/dL] 121 mg/dL (04/08/15 5:10 AM) HDL [>=61 mg/dL] 53 mg/dL *LOW* (04/08/15 5:10 AM) LDL (Calculated) [<=99 mg/dL] 106 mg/dL *HI* (04/08/15 5:10 AM) VLDL 24 *NA* (04/08/15 5:10 AM) ANEMIA STUDY Most recent to oldest [Reference Range]: 1 2 3 Iron [30-160 ug/dl] 30 ug/dl (04/08/15 5:10 AM) Ferritin Lvl [5-204 ng/mL] 5 ng/mL 2 ng/mL (04/08/15 5:10 AM) *LOW* (04/07/15 8:16 PM) % Satur Fe [12-57 %] 6 % *LOW* (04/08/15 5:10 AM) UIBC [110-370 ug/dl] 448 ug/dl *HI* (04/08/15 5:10 AM) Vitamin B12 Lvl [254-1320 pg/mL] 539 pg/mL (04/07/15 8:16 PM) Folate Lvl [>=3.0 ng/mL] 17.7 ng/mL (04/07/15 8:16 PM) TIBC [228-428 ug/dl] 478 ug/dl *HI* (04/08/15 5:10 AM) URINE AND STOOL Most recent to oldest [Reference Range]: 1 2 3 UA Turbidity [Clear] Clear (04/07/15 8:33 AM) UA Color [Yellow] Yellow *NA* (04/07/15 8:33 AM) UA pH [5.0-8.0] 6.5 (04/07/15 8:33 AM) UA Spec Grav [<=1.030] 1.020 (04/07/15 8:33 AM) UA Glucose [Negative] Negative (04/07/15 8:33 AM) UA Blood [Negative] Large *ABN* (04/07/15 8:33 AM) UA Ketones [Negative] Negative *NA* (04/07/15 8:33 AM) UA Protein [Negative] Trace *ABN* (04/07/15 8:33 AM) UA Urobilinogen [0.1-1.0 EU/dL] 0.2 EU/dL (04/07/15 8:33 AM) UA Bili [Negative] Negative *NA* (04/07/15 8:33 AM) UA Leuk Est [Negative] Negative (04/07/15 8:33 AM) UA Nitrite [Negative] Negative (04/07/15 8:33 AM) UA WBC [None Seen /HPF] 0-2 /HPF (04/07/15 8:33 AM) UA RBC [0-2 /HPF] 3-5 /HPF *ABN* (04/07/15 8:33 AM) UA Bacteria [None Seen /HPF] Occasional /HPF (04/07/15 8:33 AM) UA Sq Epi [Few /LPF] Few /LPF (04/07/15 8:33 AM) UA Mucus [None Seen /LPF] Few /LPF (04/07/15 8:33 AM) Micro? Performed (04/07/15 8:33 AM) HEMATOLOGY Most recent to oldest [Reference Range]: 1 2 3 WBC [3.7-10.4 K/CMM] 5.4 K/CMM 9.0 K/CMM (04/08/15 5:10 AM) (04/07/15 7:28 AM) RBC [4.20-5.40 M/CMM] 3.99 M/CMM 4.30 M/CMM *LOW* (04/07/15 7:28 AM) (04/08/15 5:10 AM) Hgb [12.0-16.0 g/dL] 8.8 g/dL 9.2 g/dL *LOW* *LOW* (04/08/15 5:10 AM) (04/07/15 7:28 AM) Hct [36.0-48.0 %] 28.8 % 30.5 % *LOW* *LOW* (04/08/15 5:10 AM) (04/07/15 7:28 AM) MCV [80.0-98.0 fL] 72.1 fL 71.0 fL *LOW* *LOW* (04/08/15 5:10 AM) (04/07/15 7:28 AM) MCH [27.0-31.0 pg] 21.9 pg 21.4 pg *LOW* *LOW* (04/08/15 5:10 AM) (04/07/15 7:28 AM) MCHC [32.0-36.0 g/dL] 30.4 g/dL 30.1 g/dL *LOW* *LOW* (04/08/15 5:10 AM) (04/07/15 7:28 AM) RDW [11.5-14.5 %] 17.7 % 18.0 % *HI* *HI* (04/08/15 5:10 AM) (04/07/15 7:28 AM) Platelet [133-450 K/CMM] 291 K/CMM 280 K/CMM (04/08/15 5:10 AM) (04/07/15 7:28 AM) MPV [7.4-10.4 fL] 8.3 fL 8.0 fL (04/08/15 5:10 AM) (04/07/15 7:28 AM) Segs [45.0-75.0 %] 56.2 % 84.7 % (04/08/15 5:10 AM) *HI* (04/07/15 7:28 AM) Lymphocytes [20.0-40.0 %] 34.2 % 9.4 % (04/08/15 5:10 AM) *LOW* (04/07/15 7:28 AM) Monocytes [2.0-12.0 %] 7.0 % 5.4 % (04/08/15 5:10 AM) (04/07/15 7:28 AM) Eosinophils [0.0-4.0 %] 2.0 % 0.3 % (04/08/15 5:10 AM) (04/07/15 7:28 AM) Basophils [0.0-1.0 %] 0.6 % 0.2 % (04/08/15 5:10 AM) (04/07/15 7:28 AM) Segs-Bands # [1.5-8.1 K/CMM] 3.0 K/CMM 7.6 K/CMM (04/08/15 5:10 AM) (04/07/15 7:28 AM) Lymphocytes # [1.0-5.5 K/CMM] 1.8 K/CMM 0.8 K/CMM (04/08/15 5:10 AM) *LOW* (04/07/15 7:28 AM) Monocytes # [0.0-0.8 K/CMM] 0.4 K/CMM 0.5 K/CMM (04/08/15 5:10 AM) (04/07/15 7:28 AM) Eosinophils # [0.0-0.5 K/CMM] 0.1 K/CMM 0.0 K/CMM (04/08/15 5:10 AM) (04/07/15 7:28 AM) Basophils # [0.0-0.2 K/CMM] 0.0 K/CMM 0.0 K/CMM (04/08/15 5:10 AM) (04/07/15 7:28 AM) Polychrom [None Seen] Moderate *ABN* (04/08/15 5:10 AM) Microcyte [None Seen] 2+ *ABN* (04/08/15 5:10 AM) Plt Morph Normal (04/08/15 5:10 AM) Retic Auto [0.5-1.5 %] 1.4 % (04/07/15 8:16 PM) Immunizations No data available for this [...]
--- OUTSIDE RECORDS SUMMARY | 2017-11-14 22:29 | XMS REPORT | CCD ---
:1975 Author Organization [facility] [place] [facility] Care Team Providers Name Role Phone Scott Allen Consulting Provider Allergies, Adverse Reactions, Alerts Substance Reaction Status Vicodin Active Medications Medication Instructions Start Date End Date Status morphine Sulfate 4 mg, 1 mL, Route: IVP, 03/07/2013 03/07/2013 Completed Drug form: INJ, ONCE, Dosing Weight 72.727, kg, Priority: STAT, Start date: 03/07/13 9:37:00, Stop date: 03/07/13 9:37:00(Same as:MORPhine Sulfate) Zofran 4 mg, 2 mL, Route: IVP, 03/07/2013 03/07/2013 Completed Drug form: INJ, ONCE, Dosing Weight 72.727, kg, Priority: STAT, Start date: 03/07/13 9:37:00, Stop date: 03/07/13 9:37:00(Same as: Zofran) acetaminophen 1,000 mg, 2 tab, Route: 03/07/2013 03/07/2013 Completed PO, Drug form: TAB, ONCE, Dosing Weight 72.727, kg, Start date: 03/07/13 9:19:00, Stop date: 03/07/13 9:19:00Max acetaminophen 4000 mg/day (4 gm/day). (Same as: Tylenol Extra Strength) acetaminophen 650 mg, 2 tab, Route: 03/07/2013 03/07/2013 Deleted PO, Drug form: TAB, ONCE, Dosing Weight 72.727, kg, Start date: 03/07/13 9:37:00, Stop date: 03/07/13 9:37:00Do not exceed 4 gm/day. (Same as: Tylenol) ceftriaxone + Sodium 1 gm, Route: IVPB, Drug 03/07/2013 03/07/2013 Completed Chloride 0.9% IV 100 mL form: PDR/INJ, ONCE, Dosing Weight 72.727, kg, Priority: STAT, Start date: 03/07/13 9:37:00, Stop date: 03/07/13 9:37:00(Same As: Rocephin). Use with 100ml NS mini-bag PLUS and infuse over 30 min Sodium Chloride 0.9% 1,000 mL, Rate: 1,000 03/07/2013 03/07/2013 Completed (Bolus) IV 1,000 mL ml/hr, Infuse over: 1 hr, Route: IV, Dosing Weight 72.727 kg, Total Volume: 1,000, Priority: STAT, Start date: 03/07/13 9:37:00, Duration: 1 doses or times, Stop date: 03/07/13 10:36:00 Saline Flush 0.9% 5 mL, Route: IVP, Drug 03/07/2013 03/07/2013 Discontinued Form: INJ, Dosing Weight 72.727, kg, PRN, PRN Line Flush, Start date: 03/07/13 9:37:00, Duration: 30 day, Stop date: 04/06/13 9:36:00(Same as: BD Posiflush) Zithromax Z-Onel 250 mg 250 mg=1 tab, PO, Daily, TAKE 2 TABLETS ON DAY 1; TAKE 1 TABLET ON DAYS 2 - 5, # 1 Pack, 0 Refill(s) 03/07/2013 Ordered oral tablet TAKE 2 TABLETS ON DAY 1; TAKE 1 TABLET ON DAYS 2 - 5 Naprosyn 500 mg oral 500 mg=1 tab, PO, BID, 03/07/2013 Ordered tablet for pain, # 20 tab, 0 Refill(s) Zofran ODT 4 mg oral 4 mg=1 tab, PO, BID, Nausea and Vomiting, Dissolve tab under tongue, # 10 tab, 0 Refill(s) 03/07/2013 Ordered tablet, disintegrating Dissolve tab under tongue Tessalon 200 mg oral 200 mg=1 cap, PO, TID, # 03/07/2013 03/14/2013 Ordered capsule 21 cap, 0 Refill(s) Vital Signs Most recent to oldest 1 2 3 [Reference Range]: Temperature Oral 99.1 DegF 101.2 DegF [96.4-99.1 DegF] (03/07/2013 12:24:00) *HI* (03/07/2013 09:16:00) Systolic Blood Pressure 108 mmHg 99 mmHg 102 mmHg [90-140 mmHg] (03/07/2013 12:24:00) (03/07/2013 11:30:00) (03/07/2013 09:59: 00) Diastolic Blood Pressure 64 mmHg 54 mmHg 61 mmHg [60-90 mmHg] (03/07/2013 12:24:00) *LOW* (03/07/2013 09:59:00) (03/07/2013 11:30:00) Respiratory Rate [14-20 20 BRMIN 20 BRMIN 19 BRMIN BRMIN] (03/07/2013 12:24:00) (03/07/2013 11:30:00) (03/07/2013 09:59:00) Peripheral Pulse Rate 84 bpm 81 bpm 92 bpm [60-100 bpm] (03/07/2013 12:24:00) (03/07/2013 11:30:00) (03/07/2013 09:59: 00) Results VIRAL - SEROLOGY Most recent to oldest [Reference Range]: 1 Influ A [Negative] Negative (03/07/2013 09:45:37) Influ B [Negative] Negative 1 (03/07/2013 09:45:37) 1Interpretive Data: Influenza A&B Antigen: Due to the low sensitivity of this test a negative result does not exclude influenza virus infection. A diagnosis of influenza should be considered based on a patient's clinical presentation and empiric antiviral treatment should be considered, if indicated. If more conclusive testing is desired, follow-up confirmatory testing with either viral culture or PCR is warranted.CHEMISTRY Most recent to oldest [Reference Range]: 1 Sodium Lvl [135-145 mEq/L] 135 mEq/L (03/07/2013 09:45:45) Potassium Lvl [3.5-5.1 mEq/L] 3.9 mEq/L (03/07/2013 09:45:45) Chloride Lvl [95-109 mEq/L] 102 mEq/L (03/07/2013 09:45:45) CO2 [24-32 mEq/L] 24 mEq/L (03/07/2013 09:45:45) AGAP [10.0-20.0 mEq/L] 12.9 mEq/L (03/07/2013:45:45) Creatinine Lvl [0.5-1.4 mg/dL] 0.9 mg/dL (03/07/2013:45:45) eGFR 82 mL/min/1.73m2 2 *NA* (03/07/2013:45:45) BUN [7-22 mg/dL] 7 mg/dL (03/07/2013:45:45) Glucose Lvl [70-99 mg/dL] 131 mg/dL 3 *HI* (03/07/2013:45:45) Calcium Lvl [8.5-10.5 mg/dL] 9.6 mg/dL (03/07/2013:45:45) Lactic Acid Lvl [0.5-2.2 mMol/L] 1.9 mMol/L (03/07/2013:45:45) Total CK [12-191 unit/L] 469 unit/L *HI* (03/07/2013:45:45) CK MB [0.5-3.6 ng/mL] 1.1 ng/mL (03/07/2013:45:45) CK MB Index [0.0-2.5] 0.2 (03/07/2013:45:45) Troponin-I [0.00-0.40 ng/mL] <0.02 ng/mL (03/07/2013:45:45) 2Result Comment: The eGFR is calculated using [...] eGFR should be multiplied by the estimated BMI.3Interpretive Data: Adult reference range values reflect the clinical guidelines of the [place] [employer].HEMATOLOGY Most recent to oldest [Reference Range]: 1 WBC [3.7-10.4 K/CMM] 7.3 K/CMM (03/07/2013 09:45:00) RBC [4.20-5.40 M/CMM] 3.99 M/CMM *LOW* (03/07/2013 09:45:00) Hgb [12.0-16.0 g/dL] 8.3 g/dL *LOW* (03/07/2013 09:45:00) Hct [36.0-48.0 %] 26.1 % *LOW* (03/07/2013 09:45:00) MCV [81.0-99.0 fL] 65.4 fL *LOW* (03/07/2013 09:45:00) MCH [27.0-31.0 pg] 20.7 pg *LOW* (03/07/2013 09:45:00) MCHC [32.0-36.0 g/dL] 31.7 g/dL *LOW* (03/07/2013 09:45:00) RDW [11.5-14.5 %] 17.9 % *HI* (03/07/2013 09:45:00) Platelet [133-450 K/CMM] 305 K/CMM (03/07/2013 09:45:00) MPV [7.4-10.4 fL] 8.0 fL (03/07/2013 09:45:00) Segs [45.0-75.0 %] 91.4 % *HI* (03/07/2013 09:45:00) Lymphocytes [20.0-40.0 %] 3.3 % *LOW* (03/07/2013 09:45:00) Monocytes [2.0-12.0 %] 5.2 % (03/07/2013 09:45:00) Eosinophils [0.0-4.0 %] 0.1 % (03/07/2013 09:45:00) Basophils [0.0-1.0 %] 0.0 % (03/07/2013 09:45:00) Segs-Bands # [1.5-8.1 K/CMM] 6.7 K/CMM (03/07/2013 09:45:00) Lymphocytes # [1.0-5.5 K/CMM] 0.2 K/CMM *LOW* (03/07/2013 09:45:00) Monocytes # [0.0-0.8 K/CMM] 0.4 K/CMM (03/07/2013 09:45:00) Eosinophils # [0.0-0.5 K/CMM] 0.0 K/CMM (03/07/2013 09:45:00) Basophils # [0.0-0.2 K/CMM] 0.0 K/CMM (03/07/2013 09:45:00) Polychrom [None Seen] Slight (03/07/2013 09:45:00) Hypochrom [None Seen] Slight (03/07/2013 09:45:00) Microcyte [None Seen] 1+ *ABN* (03/07/2013 09:45:00) Target Cell [None Seen] Slight *ABN* (03/07/2013 09:45:00) Elliptocyte [None Seen] Slight *ABN* (03/07/2013 09:45:00) Plt Morph Normal (03/07/2013 09:45:00) Microbiology Reports PROCEDURE:Culture: Blood STATUS: Order in Progress BODY SITE: Right Antecubital COLLECTED DATE/TIME: 03/07/2013 10:55:44 SOURCE: Blood FREE TEXT SOURCE: PRELIMINARY REPORTS Preliminary ReportNo Growth At 2 Days Preliminary ReportNo Growth; Holding Preliminary ReportNo Growth At 1 Day PROCEDURE:Culture: Blood STATUS: Order in Progress BODY SITE: Left Antecubital COLLECTED DATE/TIME: 03/07/2013 10:40:16 SOURCE: Blood FREE TEXT SOURCE: PRELIMINARY REPORTS Preliminary ReportNo Growth At 2 Days Preliminary ReportNo Growth; Holding Preliminary ReportNo Growth At 1 Day
--- OUTSIDE RECORDS SUMMARY | 2017-11-14 22:29 | XMS REPORT | Summary of Care ---
:1975 Author Organization [facility] Address [address] [place], [place] [address]- Encounter HQ Freddie_[email or web address](YULIET) [id number] Date(s): 11/03/14 - 11/03/14 [facility] [address] [place] [address]- Discharge Diagnosis: Microcytic anemia Discharge Diagnosis: Chest pain Discharge Disposition: Home Attending Physician: Joy Mercer MD Vital Signs Most recent to oldest 1 2 3 [Reference Range]: Temperature Oral [96.4-99.1 98.0 DegF 98.2 DegF 98.2 DegF DegF] (11/03/14 1:30 PM) (11/03/14 12:20 PM) (11/03/14 8:34 AM) Most recent to oldest 1 2 3 [Reference Range]: Blood Pressure [90-140/60-90 111/74 mmHg 118/78 mmHg 126/80 mmHg mmHg] (11/03/14 1:30 PM) (11/03/14 12:20 PM) (11/03/14 10:30 AM) Most recent to oldest 1 2 3 [Reference Range]: Respiratory Rate [14-20 14 BRMIN 14 BRMIN 15 BRMIN BRMIN] (11/03/14 1:30 PM) (11/03/14 12:20 PM) (11/03/14 10:30 AM) Most recent to oldest [Reference Range]: 1 2 3 Peripheral Pulse Rate [60-100 bpm] 70 bpm (11/03/14 8:34 AM) Most recent to oldest [Reference Range]: 1 2 3 Weight 77 kg (11/03/14 8:34 AM) Problem List Condition Effective Dates Status Health Status Informant None(Confirmed) Resolved Allergies, Adverse Reactions, Alerts Substance Reaction Severity Status Vicodin Active Medications aspirin 324 mg, 4 tab, Route: PO, Drug form: CHEWTAB, ONCE, Dosing Weight 77, kg, Priority: STAT, Start date: 11/03/14 8:50:00, Stop date: 11/03/14 8:50:00 Notes: Take with food. Start Date: 11/03/14 Stop Date: 11/03/14 Status: Completedferrous sulfate 325 mg oral enteric coated tablet 325 mg=1 tab, PO, Daily, # 30 tab, 0 Refill(s) Start Date: 11/03/14 Stop Date: 12/03/14 Status: OrderedGI cocktail 30 mL, Route: PO, Drug Form: SUSP, Dosing Weight 77, kg, ONCE, STAT, Start date : 11/03/14 8:51:00, Stop date: 11/03/14 8:51:00 Notes: G.I. Cocktail=antacid with simethicone 22.5 mL - lidocaine viscous 7.5 mL Start Date: 11/03/14 Stop Date: 11/03/14 Status: Completedmorphine Sulfate 2 mg, 1 mL, Route: IVP, Drug form: INJ, ONCE, Dosing Weight 77, kg, Priority: STAT, Start date: 11/03/14 8:51:00, Stop date: 11/03/14 8:51:00 Notes: (Same as:MORPhine Sulfate) Start Date: 11/03/14 Stop Date: 11/03/14 Status: CompletedSaline Flush 0.9% 10 mL, Route: IVP, Drug Form: INJ, Dosing Weight 77, kg, PRN, PRN Line Flush, Start date: 11/03/14 8:50:00, Duration: 30 day, Stop date: 12/03/14 8:49:00 Notes: (Same as: BD Posiflush) Start Date: 11/03/14 Stop Date: 11/03/14 Status: DiscontinuedTylenol with Codeine #3 oral tablet 1 tab, Route: PO, Drug Form: TAB, Dosing Weight 77, kg, ONCE, STAT, Start date: 11/03/14 10:14:00, Stop date: 11/03/14 10:14:00 Start Date: 11/03/14 Stop Date: 11/03/14 Status: CompletedTylenol with Codeine #3 oral tablet 1 - 2 tab, PO, Q6H, PRN Pain, X 2 day, # 20 tab, 0 Refill(s) Start Date: 11/03/14 Stop Date: 11/05/14 Status: Completed Results ELECTROLYTES Most recent to oldest [Reference Range]: 1 2 Sodium Lvl [135-145 mEq/L] 138 mEq/L (11/03/14 9:00 AM) Potassium Lvl [3.5-5.1 mEq/L] 3.7 mEq/L (11/03/14 9:00 AM) Chloride Lvl [95-109 mEq/L] 103 mEq/L (11/03/14 9:00 AM) CO2 [24-32 mEq/L] 28 mEq/L (11/03/14 9:00 AM) AGAP [10.0-20.0 mEq/L] 10.7 mEq/L (11/03/14 9:00 AM) CHEM PANEL Most recent to oldest [Reference Range]: 1 2 Creatinine Lvl [0.5-1.4 mg/dL] 0.8 mg/dL (11/03/14 9:00 AM) eGFR 111 mL/min/1.73m2 1 *NA* (11/03/14 9:00 AM) BUN [7-22 mg/dL] 6 mg/dL *LOW* (11/03/14 9:00 AM) B/C Ratio [6-25] 8 (11/03/14 9:00 AM) Glucose Lvl [70-99 mg/dL] 88 mg/dL (11/03/14 9:00 AM) Total Protein [6.4-8.4 g/dL] 8.2 g/dL (11/03/14 9:00 AM) Albumin Lvl [3.5-5.0 g/dL] 3.2 g/dL *LOW* (11/03/14 9:00 AM) Globulin [2.0-4.0 g/dL] 5.0 g/dL *HI* (11/03/14 9:00 AM) A/G Ratio [0.7-1.6] 0.6 *LOW* (11/03/14 9:00 AM) Calcium Lvl [8.5-10.5 mg/dL] 9.5 mg/dL (11/03/14 9:00 AM) ALT [0-65 unit/L] 20 unit/L (11/03/14 9:00 AM) AST [0-37 unit/L] 16 unit/L (11/03/14 9:00 AM) Alk Phos [39-136 unit/L] 85 unit/L 2 (11/03/14 9:00 AM) Bili Total [0.2-1.3 mg/dL] 0.5 mg/dL (11/03/14 9:00 AM) 1Result Comment: The eGFR is calculated [...] be multiplied by the estimated BMI.2Result Comment: Called Jane Giles at 2014 16:58 by RP. Dank smalls, unable to run ISABELA earlier today. 11/03/2014 16:56 RP.CARDIAC ENZYMES Most recent to oldest [Reference Range]: 1 2 Total CK [12-191 unit/L] 196 unit/L *HI* (11/03/14 9:00 AM) CK MB [0.5-3.6 ng/mL] 0.5 ng/mL (11/03/14 9:00 AM) CK MB Index [0.0-2.5] 0.3 (11/03/14 9:00 AM) Troponin-I [0.00-0.40 ng/mL] <0.02 ng/mL <0.02 ng/mL (11/03/14 11:45 AM) (11/03/14 9:00 AM) proBNP [0-125 pg/mL] 18 pg/mL (11/03/14 9:00 AM) URINE CHEM Most recent to oldest [Reference Range]: 1 2 U Preg [Negative] Negative (11/03/14 1:07 PM) URINE AND STOOL Most recent to oldest [Reference Range]: 1 2 UA Turbidity [Clear] Cloudy *ABN* (11/03/14 1:07 PM) UA Color [Yellow] Yellow *NA* (11/03/14 1:07 PM) UA pH [5.0-8.0] 7.5 (11/03/14 1:07 PM) UA Spec Grav [<=1.030] 1.010 (11/03/14 1:07 PM) UA Glucose [Negative] Negative (11/03/14 1:07 PM) UA Blood [Negative] Negative (11/03/14 1:07 PM) UA Ketones [Negative] Negative *NA* (11/03/14 1:07 PM) UA Protein [Negative] Trace *ABN* (11/03/14 1:07 PM) UA Urobilinogen [0.1-1.0 EU/dL] 1.0 EU/dL (11/03/14 1:07 PM) UA Bili [Negative] Negative *NA* (11/03/14 1:07 PM) UA Leuk Est [Negative] Small *ABN* (11/03/14 1:07 PM) UA Nitrite [Negative] Negative (11/03/14 1:07 PM) UA WBC [None Seen /HPF] 11-20 /HPF *ABN* (11/03/14 1:07 PM) UA RBC [0-2 /HPF] 0-2 /HPF (11/03/14 1:07 PM) UA Bacteria [None Seen /HPF] Many /HPF (11/03/14 1:07 PM) UA Sq Epi [Few /LPF] Few /LPF (11/03/14 1:07 PM) HEMATOLOGY Most recent to oldest [Reference Range]: 1 2 WBC [3.7-10.4 K/CMM] 4.2 K/CMM (11/03/14 9:00 AM) RBC [4.20-5.40 M/CMM] 3.95 M/CMM *LOW* (11/03/14 9:00 AM) Hgb [12.0-16.0 g/dL] 8.1 g/dL *LOW* (11/03/14 9:00 AM) Hct [36.0-48.0 %] 26.7 % *LOW* (11/03/14 9:00 AM) MCV [80.0-98.0 fL] 67.6 fL *LOW* (11/03/14 9:00 AM) MCH [27.0-31.0 pg] 20.5 pg *LOW* (11/03/14 9:00 AM) MCHC [32.0-36.0 g/dL] 30.3 g/dL *LOW* (11/03/14 9:00 AM) RDW [11.5-14.5 %] 17.4 % *HI* (11/03/14 9:00 AM) Platelet [133-450 K/CMM] 259 K/CMM (11/03/14 9:00 AM) MPV [7.4-10.4 fL] 7.6 fL (11/03/14 9:00 AM) Segs [45.0-75.0 %] 57.0 % (11/03/14 9:00 AM) Lymphocytes [20.0-40.0 %] 30.7 % (11/03/14 9:00 AM) Monocytes [2.0-12.0 %] 9.8 % (11/03/14 9:00 AM) Eosinophils [0.0-4.0 %] 1.7 % (11/03/14 9:00 AM) Basophils [0.0-1.0 %] 0.8 % (11/03/14 9:00 AM) Segs-Bands # [1.5-8.1 K/CMM] 2.4 K/CMM (11/03/14 9:00 AM) Lymphocytes # [1.0-5.5 K/CMM] 1.3 K/CMM (11/03/14 9:00 AM) Monocytes # [0.0-0.8 K/CMM] 0.4 K/CMM (11/03/14 9:00 AM) Eosinophils # [0.0-0.5 K/CMM] 0.1 K/CMM (11/03/14 9:00 AM) Microcyte [None Seen] 3+ *NA* (11/03/14 9:00 AM) Plt Morph Normal (11/03/14 9:00 AM) D-Dimer 0.27 ug/mL FEU *NA* (11/03/14 9:00 AM) Immunizations No data available for this section [...]
--- OUTSIDE RECORDS SUMMARY | 2017-11-14 22:30 | XMS REPORT | Summary of Care ---
:1975 Author Organization [facility] Address [id number] [place] [id number]- Encounter HQ Udayr_yudelka(FIN) [id number] Date(s): 10/13/17 - 10/13/[address] [phone] Encounter Diagnosis Ureterolithiasis (Discharge Diagnosis) - 10/13/17 Renal colic (Discharge Diagnosis) - 10/13/17 Discharge Disposition: Home or Self Care Attending Physician: Young Christy MD Vital Signs Most recent to oldest 1 2 3 [Reference Range]: Height 162.56 cm (10/13/17 9:33 AM) Temperature Oral [96.4-99.1 98.2 DegF 98.2 DegF 98.4 DegF DegF] (10/13/17 12:16 PM) (10/13/17 10:29 AM) (10/13/17 9:33 AM) Blood Pressure [90-140/60-90 105/72 mmHg 102/71 mmHg 109/77 mmHg mmHg] (10/13/17 12:16 PM) (10/13/17 10:29 AM) (10/13/17 9:33 AM) Respiratory Rate [14-20 20 BRMIN 20 BRMIN 16 BRMIN BRMIN] (10/13/17 12:16 PM) (10/13/17 10:29 AM) (10/13/17 9:33 AM) Peripheral Pulse Rate [60-100 71 bpm 74 bpm 85 bpm bpm] (10/13/17 12:16 PM) (10/13/17 10:29 AM) (10/13/17 9:33 AM) Weight 76 kg (10/13/17 9:33 AM) Body Mass Index 28.76 m2 (10/13/17 9:33 AM) Problem List Condition Effective Dates Status Health Status Informant Anemia(Confirmed) Active Dysmenorrhea(Confirmed) Active Hyperlipidemia(Confirmed) Resolved Menorrhagia(Confirmed) Active None(Confirmed) Resolved Uterine fibroid(Confirmed) Active Allergies, Adverse Reactions, Alerts Substance Reaction Severity Status Vicodin pass out Active Medications ketOROLAC 30 mg/mL injectable solution 30 mg, Route: IVP, Drug form: INJ, ONCE, Dosing Weight 76, kg, Priority: STAT, Start date: 10/13/17 12:11:00 CDT, Stop date: 10/13/17 12:11:00 CDT Start Date: 10/13/17 Stop Date: 10/13/17 Status: Completedmorphine Sulfate 2 mg, 1 mL, Route: IVP, Drug form: SOLN, ONCE, Dosing Weight 76, kg, Priority: STAT, Start date: 10/13/17 9:54:00 CDT, Stop date: 10/13/17 9:54:00 CDT Start Date: 10/13/17 Stop Date: 10/13/17 Status: Completednaproxen 500 mg oral tablet 500 mg=1 tab, PO, Q12H, PRN Pain, X 10 day, # 20 tab, 0 Refill(s) Start Date: 10/13/17 Stop Date: 10/23/17 Status: Orderedondansetron 4 mg, 2 mL, Route: IVP, Drug form: INJ, ONCE, Dosing Weight 76, kg, Priority: STAT, Start date: 10/13/17 9:54:00 CDT, Stop date: 10/13/17 9:54:00 CDT Notes: (Same as: Zofran) MEDICATION WASTE Product Size: 4 mgProduct Wasted: ___ mg Start Date: 10/13/17 Stop Date: 10/13/17 Status: CompletedSaline Flush 0.9% 10 mL, Route: IVP, Drug Form: INJ, Dosing Weight 76, kg, PRN, PRN Line Flush, Start date: 10/13/17 9:54:00 CDT, Duration: 30 day, Stop date: 11/12/17 9:53:00 CDT Notes: (Same as: BD Posiflush) Start Date: 10/13/17 Stop Date: 10/13/17 Status: DiscontinuedSodium Chloride 0.9% (Bolus) IV 1,000 mL, 1000 ml/hr, Infuse Over: 1 hr, Route: IV, 1,000, Drug form: INJ, ONCE , Priority: STAT, Dosing Weight 76 kg, Start date: 10/13/17 9:54:00 CDT, Stop date: 10/13/17 9:54:00 CDT Start Date: 10/13/17 Stop Date: 10/13/17 Status: Completed Results ELECTROLYTES Most recent to oldest [Reference Range]: 1 Sodium Lvl [135-145 mEq/L] 139 mEq/L (10/13/17 10:16 AM) Potassium Lvl [3.5-5.1 mEq/L] 3.8 mEq/L (10/13/17 10:16 AM) Chloride Lvl [95-109 mEq/L] 102 mEq/L (10/13/17 10:16 AM) CO2 [24-32 mEq/L] 30 mEq/L (10/13/17 10:16 AM) AGAP [10.0-20.0 mEq/L] 10.8 mEq/L (10/13/17 10:16 AM) CHEM PANEL Most recent to oldest [Reference Range]: 1 Creatinine Lvl [0.50-1.40 mg/dL] 0.83 mg/dL (10/13/17 10:16 AM) eGFR 101 mL/min/1.73m2 1 *NA* (10/13/17 10:16 AM) BUN [7-22 mg/dL] 7 mg/dL (10/13/17 10:16 AM) B/C Ratio [6-25] 8 (10/13/17 10:16 AM) Glucose Lvl [70-99 mg/dL] 125 mg/dL *HI* (10/13/17 10:16 AM) Total Protein [6.4-8.4 g/dL] 7.9 g/dL (10/13/17 10:16 AM) Albumin Lvl [3.5-5.0 g/dL] 3.4 g/dL *LOW* (10/13/17 10:16 AM) Globulin [2.7-4.2 g/dL] 4.5 g/dL *HI* (10/13/17 10:16 AM) A/G Ratio [0.7-1.6] 0.8 (10/13/17 10:16 AM) Calcium Lvl [8.5-10.5 mg/dL] 10.2 mg/dL (10/13/17 10:16 AM) ALT [0-65 unit/L] 22 unit/L (10/13/17 10:16 AM) AST [0-37 unit/L] 14 unit/L (10/13/17 10:16 AM) Alk Phos [39-136 unit/L] 83 unit/L (10/13/17 10:16 AM) Bili Total [0.2-1.3 mg/dL] 0.4 mg/dL (10/13/17 10:16 AM) Lipase Lvl [73-393 unit/L] 204 unit/L (10/13/17 10:16 AM) 1Result Comment: The eGFR is calculated using the CKD-EPI formula. In most young , healthy individualsthe eGFR will be >90 mL/min/1.73m2. The eGFR declines with age. An eGFR of 60-89 may be normal insome populations, particularly the elderly, for whom the [...] eGFR should be multiplied by the estimated BMI.ENDOCRINOLOGY Most recent to oldest [Reference Range]: 1 S Preg [Negative] Negative *NA* (10/13/17 10:16 AM) URINE AND STOOL Most recent to oldest [Reference Range]: 1 UA Turbidity [Clear] Slight *ABN* (10/13/17 10:16 AM) UA Color [Yellow] Yellow *NA* (10/13/17 10:16 AM) UA pH [5.0-8.0] 6.0 (10/13/17 10:16 AM) UA Spec Grav [<=1.030] 1.008 (10/13/17 10:16 AM) UA Glucose [Negative mg/dL] Negative mg/dL *NA* (10/13/17 10:16 AM) UA Blood [Negative] Negative (10/13/17 10:16 AM) UA Ketones [Negative mg/dL] Negative mg/dL *NA* (10/13/17 10:16 AM) UA Protein [Negative mg/dL] Negative mg/dL (10/13/17 10:16 AM) UA Urobilinogen [0.1-1.0 mg/dL] <=1.0 mg/dL *NA* (10/13/17 10:16 AM) UA Bili [Negative] Negative *NA* (10/13/17 10:16 AM) UA Leuk Est [Negative] Negative (10/13/17 10:16 AM) UA Nitrite [Negative] Negative (10/13/17 10:16 AM) UA WBC [0-5 /HPF] 2 /HPF (10/13/17 10:16 AM) UA RBC [0-2 /HPF] 3 /HPF *HI* (10/13/17 10:16 AM) UA Bacteria [None Seen /HPF] Occasional /HPF *NA* (10/13/17 10:16 AM) UA Sq Epi [Few /LPF] Few /LPF *NA* (10/13/17 10:16 AM) UA CaOx Judy [None Seen /HPF] Many /HPF *ABN* (10/13/17 10:16 AM) UA Mucus [None Seen /LPF] Few /LPF *NA* (10/13/17 10:16 AM) HEMATOLOGY Most recent to oldest [Reference Range]: 1 WBC [3.7-10.4 K/CMM] 7.4 K/CMM (10/13/17 10:16 AM) RBC [4.20-5.40 M/CMM] 4.37 M/CMM (10/13/17 10:16 AM) Hgb [12.0-16.0 g/dL] 13.4 g/dL (10/13/17 10:16 AM) Hct [36.0-48.0 %] 38.7 % (10/13/17 10:16 AM) MCV [80.0-98.0 fL] 88.5 fL (10/13/17 10:16 AM) MCH [27.0-31.0 pg] 30.7 pg (10/13/17 10:16 AM) MCHC [32.0-36.0 g/dL] 34.7 g/dL (10/13/17 10:16 AM) RDW [11.5-14.5 %] 13.4 % (10/13/17 10:16 AM) MPV [7.4-10.4 fL] 8.2 fL (10/13/17 10:16 AM) Platelet [133-450 K/CMM] 204 K/CMM (10/13/17 10:16 AM) Segs [45.0-75.0 %] 64.6 % (10/13/17 10:16 AM) Lymphocytes [20.0-40.0 %] 26.4 % (10/13/17 10:16 AM) Monocytes [2.0-12.0 %] 7.5 % (10/13/17 10:16 AM) Eosinophils [0.0-4.0 %] 1.1 % (10/13/17 10:16 AM) Basophils [0.0-1.0 %] 0.4 % (10/13/17 10:16 AM) Segs-Bands # [1.5-8.1 K/CMM] 4.8 K/CMM (10/13/17 10:16 AM) Lymphocytes # [1.0-5.5 K/CMM] 2.0 K/CMM (10/13/17 10:16 AM) Monocytes # [0.0-0.8 K/CMM] 0.6 K/CMM (10/13/17 10:16 AM) Eosinophils # [0.0-0.5 K/CMM] 0.1 K/CMM (10/13/17 10:16 AM) Immunizations No data available for this section Procedures Procedure Date Related Diagnosis Body Site Status Laparoscopic hysterectomy 05/01/16 Completed section1 Completed 1x 2 Social History Social History Type Response Substance Abuse Use: None. Exercise 1 Employment/School Status: Employed. Alcohol Never Smoking Status Never smoker; Type: Cigarettes; Previous treatment: None; Ready to change: No; Concerns about tobacco use in household: No; Exposure to Tobacco Smoke None; Cigarette Smoking Last 365 Days No; Reg Smoking Cessation Counseling No entered on: 10/13/17 1no Assessment and Plan No data available for this section
--- OUTSIDE RECORDS SUMMARY | 2017-11-14 22:30 | XMS REPORT | Summary of Care ---
:1975 Author Organization [facility] [place] [facility] Address [address] [place] [address]- Encounter HQ Freddie_yudelka(FIN) [id number] Date(s): 03/17/16 - 03/17/16 [facility] [place] [facility] [id number] [place] [phone] Discharge Diagnosis: Acute URI Discharge Diagnosis: Acute UTI Discharge Disposition: Home or Self Care Attending Physician: Asim Amato MD Vital Signs Most recent to oldest [Reference Range]: 1 2 Height 162.56 cm (03/17/16 4:25 PM) Temperature Oral [96.4-99.1 DegF] 98.7 DegF 102.4 DegF (03/17/16 6:41 PM) *HI* (03/17/16 4:25 PM) Blood Pressure [90-140/60-90 mmHg] 132/78 mmHg 135/85 mmHg (03/17/16 6:41 PM) (03/17/16 4:25 PM) Respiratory Rate [14-20 BRMIN] 18 BRMIN 18 BRMIN (03/17/16 6:41 PM) (03/17/16 4:25 PM) Peripheral Pulse Rate [60-100 bpm] 84 bpm 90 bpm (03/17/16 6:41 PM) (03/17/16 4:25 PM) Weight 76.364 kg (03/17/16 4:25 PM) Body Mass Index 28.9 m2 (03/17/16 4:25 PM) Problem List Condition Effective Dates Status Health Status Informant Hyperlipidemia(Confirmed) Resolved None(Confirmed) Resolved Allergies, Adverse Reactions, Alerts Substance Reaction Severity Status Vicodin Active Medications Bactrim DS 800 mg- 160 mg oral tablet 1 tab, PO, BID, X 7 day, # 14 tab, 0 Refill(s) Start Date: 03/17/16 Stop Date: 03/24/16 Status: OrderedMotrin 800 mg, Route: PO, Drug form: TAB, ONCE, Dosing Weight 72.727, kg, Priority: STAT, Start date: 03/17/16 16:27:00 CARDIO TECH, Stop date: 03/17/16 16:27:00 CARDIO TECH Start Date: 03/17/16 Stop Date: 03/17/16 Status: CompletedSaline Flush 0.9% 10 mL, Route: IVP, Drug Form: INJ, Dosing Weight 72.727, kg, PRN, PRN Line Flush , Start date: 03/17/16 16:27:00 CARDIO TECH, Duration: 30 day, Stop date: 04/16/16 16:26 :00 CARDIO TECH Notes: (Same as: BD Posiflush) Start Date: 03/17/16 Stop Date: 03/17/16 Status: DiscontinuedSodium Chloride 0.9% (Bolus) IV 1,000 mL, 2,000 ml/hr, Infuse Over: 30 minutes, Route: IV, ONCE, Priority: STAT , Dosing Weight 72.727 kg, Start date: 03/17/16 16:27:00 CARDIO TECH, Duration: 1 doses or times, Stop date: 03/17/16 16:27:00 CARDIO TECH Start Date: 03/17/16 Stop Date: 03/17/16 Status: Completed Results ELECTROLYTES Most recent to oldest [Reference Range]: 1 Sodium Lvl [135-145 mEq/L] 137 mEq/L (03/17/16 4:42 PM) Potassium Lvl [3.5-5.1 mEq/L] 3.4 mEq/L *LOW* (03/17/16 4:42 PM) Chloride Lvl [95-109 mEq/L] 100 mEq/L (03/17/16 4:42 PM) CO2 [24-32 mEq/L] 29 mEq/L (03/17/16 4:42 PM) AGAP [10.0-20.0 mEq/L] 11.4 mEq/L (03/17/16 4:42 PM) CHEM PANEL Most recent to oldest [Reference Range]: 1 Creatinine Lvl [0.50-1.40 mg/dL] 0.85 mg/dL (03/17/16 4:42 PM) eGFR 100 mL/min/1.73m2 1 *NA* (03/17/16 4:42 PM) BUN [7-22 mg/dL] 6 mg/dL *LOW* (03/17/16 4:42 PM) B/C Ratio [6-25] 7 (03/17/16 4:42 PM) Glucose Lvl [70-99 mg/dL] 106 mg/dL *HI* (03/17/16 4:42 PM) Total Protein [6.4-8.4 g/dL] 8.5 g/dL *HI* (03/17/16 4:42 PM) Albumin Lvl [3.5-5.0 g/dL] 3.0 g/dL *LOW* (03/17/16 4:42 PM) Globulin [2.7-4.2 g/dL] 5.5 g/dL *HI* (03/17/16 4:42 PM) A/G Ratio [0.7-1.6] 0.5 *LOW* (03/17/16 4:42 PM) Calcium Lvl [8.5-10.5 mg/dL] 9.6 mg/dL (03/17/16 4:42 PM) ALT [0-65 unit/L] 65 unit/L (03/17/16 4:42 PM) AST [0-37 unit/L] 59 unit/L *HI* (03/17/16 4:42 PM) Alk Phos [39-136 unit/L] 83 unit/L (03/17/16 4:42 PM) Bili Total [0.2-1.3 mg/dL] 0.5 mg/dL (03/17/16 4:42 PM) Lipase Lvl [73-393 unit/L] 193 unit/L (03/17/16 4:42 PM) 1Result Comment: The eGFR is calculated using [...] Range]: 1 S Preg [Negative] Negative *NA* (03/17/16 4:42 PM) URINE AND STOOL Most recent to oldest [Reference Range]: 1 UA Turbidity [Clear] Cloudy *ABN* (03/17/16 5:03 PM) UA Color [Yellow] Yellow *NA* (03/17/16 5:03 PM) UA pH [5.0-8.0] 6.0 (03/17/16 5:03 PM) UA Spec Grav [<=1.030] 1.025 (03/17/16 5:03 PM) UA Glucose [Negative] Negative (03/17/16 5:03 PM) UA Blood [Negative] Moderate *ABN* (03/17/16 5:03 PM) UA Ketones [Negative] Negative *NA* (03/17/16 5:03 PM) UA Protein [Negative mg/dL] 30 mg/dL *ABN* (03/17/16 5:03 PM) UA Urobilinogen [0.1-1.0 EU/dL] 4.0 EU/dL *HI* (03/17/16 5:03 PM) UA Bili [Negative] Negative *NA* (03/17/16 5:03 PM) UA Leuk Est [Negative] Moderate *ABN* (03/17/16 5:03 PM) UA Nitrite [Negative] Negative (03/17/16 5:03 PM) UA WBC [None Seen /HPF] 11-20 /HPF *ABN* (03/17/16 5:03 PM) UA RBC [0-2 /HPF] 3-5 /HPF *ABN* (03/17/16 5:03 PM) UA Bacteria [None Seen /HPF] Many /HPF (03/17/16 5:03 PM) UA Sq Epi [Few /LPF] Occasional /LPF (03/17/16 5:03 PM) HEMATOLOGY Most recent to oldest [Reference Range]: 1 WBC [3.7-10.4 K/CMM] 7.6 K/CMM (03/17/16 4:42 PM) RBC [4.20-5.40 M/CMM] 4.08 M/CMM *LOW* (03/17/16 4:42 PM) Hgb [12.0-16.0 g/dL] 11.7 g/dL *LOW* (03/17/16 4:42 PM) Hct [36.0-48.0 %] 34.1 % *LOW* (03/17/16 4:42 PM) MCV [80.0-98.0 fL] 83.6 fL (03/17/16 4:42 PM) MCH [27.0-31.0 pg] 28.7 pg (03/17/16 4:42 PM) MCHC [32.0-36.0 g/dL] 34.3 g/dL (03/17/16 4:42 PM) RDW [11.5-14.5 %] 16.8 % *HI* (03/17/16 4:42 PM) Platelet [133-450 K/CMM] 133 K/CMM (03/17/16 4:42 PM) MPV [7.4-10.4 fL] 8.6 fL (03/17/16 4:42 PM) Segs [45.0-75.0 %] 70.2 % (03/17/16 4:42 PM) Lymphocytes [20.0-40.0 %] 16.1 % *LOW* (03/17/16 4:42 PM) Monocytes [2.0-12.0 %] 12.9 % *HI* (03/17/16 4:42 PM) Eosinophils [0.0-4.0 %] 0.6 % (03/17/16 4:42 PM) Basophils [0.0-1.0 %] 0.2 % (03/17/16 4:42 PM) Segs-Bands # [1.5-8.1 K/CMM] 5.3 K/CMM (03/17/16 4:42 PM) Lymphocytes # [1.0-5.5 K/CMM] 1.2 K/CMM (03/17/16 4:42 PM) Monocytes # [0.0-0.8 K/CMM] 1.0 K/CMM *HI* (03/17/16 4:42 PM) VIRAL - SEROLOGY Most recent to oldest [Reference Range]: 1 Influ A [Negative] Negative (03/17/16 4:42 PM) Influ B [Negative] Negative (03/17/16 4:42 PM) Immunizations No data available for this section Procedures Procedure Date Related Diagnosis Body Site section1 1x 2 Social History Social History Type Response Substance Abuse Use: None. Alcohol Never Smoking Status Never smoker; Type: Cigarettes; Exposure to Tobacco Smoke None; Cigarette Smoking Last 365 Days No; Reg Smoking Cessation Counseling No Assessment and Plan No data available for this section
--- OUTSIDE RECORDS SUMMARY | 2017-11-14 22:30 | XMS REPORT | Summary of Care ---
:1975 Author Organization [facility] Address [address] [place], [place] [address]- Encounter HQ Ehntr_yudelka(FIN) [id number] Date(s): 05/01/16 - 05/02/16 [facility] [address] [place] [address]- Discharge Disposition: Home or Self Care Attending Physician: Darren Mars MD Admitting Physician: Darren Mars MD Referring Physician: Darren Mars MD Vital Signs Most recent to oldest [Reference 1 2 3 Range]: Height 162.56 cm (04/24/16 10:15 AM) Temperature Oral [96.4-99.1 98.2 DegF 98.9 DegF 98.2 DegF DegF] (05/02/16 12:54 PM) (05/02/16 7:02 AM) (05/02/16 5:09 AM) Blood Pressure [90-140/60-90 93/61 mmHg 85/55 mmHg 101/60 mmHg mmHg] (05/02/16 12:54 PM) *LOW* (05/02/16 5:09 AM) (05/02/16 7:02 AM) Respiratory Rate [14-20 BRMIN] 18 BRMIN 18 BRMIN 18 BRMIN (05/02/16 12:54 PM) (05/02/16 7:02 AM) (05/02/16 5:09 AM) Peripheral Pulse Rate [60-100 58 bpm 69 bpm 68 bpm bpm] *LOW* (05/02/16 7:02 AM) (05/02/16 5:09 AM) (05/02/16 12:54 PM) Weight 75 kg (05/01/16 7:16 AM) Body Mass Index 28.38 m2 (05/01/16 7:16 AM) Problem List Condition Effective Dates Status Health Status Informant Anemia(Confirmed) Active Dysmenorrhea(Confirmed) Active Hyperlipidemia(Confirmed) Resolved Menorrhagia(Confirmed) Active None(Confirmed) Resolved Uterine fibroid(Confirmed) Active Allergies, Adverse Reactions, Alerts Substance Reaction Severity Status Vicodin pass out Active Medications acetaminophen (ANES) (ANES) Route: IV, Drug form: INJ, Start date: 05/01/16 9:38:00 SURVEILLANCE SYSTEM[employer] ENGINEER, Stop date: 10:38:00 [employer]ILLANCE SYSTEM[employer] ENGINEER Start Date: 05/01/16 Stop Date: 05/01/16 Status: CompletedANES acetaminophen 1,000 mg, Route: IVPB, Drug form: INJ, ONCE, Dosing Weight 74.091, kg, PRN Pain Score 1-3, Start date: 05/01/16 10:01:00 SURVEILLANCE SYSTEMS ENGINEER, Duration: 1 doses or times, Stop date: Limited # of times Start Date: 05/01/16 Stop Date: 05/01/16 Status: DiscontinuedANES flumazenil 0.2 mg, 2 mL, Route: IVP, Drug form: INJ, PRN, Dosing Weight 75, kg, PRN Benzodiazepine Reversal, Initial dose, Start date: 05/01/16 10:01:00 SURVEILLANCE SYSTEMS ENGINEER, Duration: 30 day, Stop date: 05/31/16 10:00:00 SURVEILLANCE SYSTEMS ENGINEER Notes: (Same as: Romazicon) Start Date: 05/01/16 Stop Date: 05/01/16 Status: DiscontinuedANES HYDROmorphone 0.5 mg, 0.25 mL, Route: IVP, Drug form: INJ, Q5Min, Dosing Weight 75, kg, PRN Pain Score 7-10, Startdate: 05/01/16 10:01:00 SURVEILLANCE SYSTEMS ENGINEER, Duration: 4 doses or times, Stop date: Limited # of times Notes: Same as Dilaudid Start Date: 05/01/16 Stop Date: 05/01/16 Status: DiscontinuedANES ketOROLAC 30 mg, 1 mL, Route: IVP, Drug form: INJ, ONCE, Dosing Weight 75, kg, Start date : 05/01/16 10:01:00 SURVEILLANCE SYSTEMS ENGINEER, Duration: 1 doses or times, Stop date: 05/01/16 10:01: 00 SURVEILLANCE SYSTEMS ENGINEER Notes: (Same as:Toradol) IV bolus must be given >15 seconds. Give IM administration slowly and deeply into the muscle.Not for use > 4 days MEDICATION WASTE Product Size: 30 mgProduct Wasted: ___ mg Start Date: 05/01/16 Stop Date: 05/01/16 Status: DiscontinuedANES labetalol 10 mg, 2 mL, Route: IVP, Drug form: INJ, Q5Min, Dosing Weight 75, kg, PRN Elevated BP, Start date: 05/01/16 10:01:00 SURVEILLANCE SYSTEMS ENGINEER, Duration: 5 doses or times, Stop date: Limited # of times Notes: (Same as: Normodyne, Trandate)Push over 2 minutes Give bolus over 2-3 minutes. Start Date: 05/01/16 Stop Date: 05/01/16 Status: DiscontinuedANES morphine Sulfate 2 mg, 1 mL, Route: IVP, Drug form: INJ, Q5Min, Dosing Weight 75, kg, PRN Pain Score 4-6, Start date:05/01/16 10:01:00 SURVEILLANCE SYSTEMS ENGINEER, Duration: 5 doses or times, Stop date: Limited # of times Notes: (Same as:MORPhine Sulfate) Start Date: 05/01/16 Stop Date: 05/01/16 Status: DiscontinuedANES naloxone 0.4 mg, 1 mL, Route: IVP, Drug form: INJ, Q2MIN, Dosing Weight 75, kg, PRN Narcotic Reversal, Start date: 05/01/16 10:01:00 SURVEILLANCE SYSTEMS ENGINEER, Duration: 8 doses or times , Stop date: Limited # of times Notes: Same as Narcan Start Date: 05/01/16 Stop Date: 05/01/16 Status: DiscontinuedANES ondansetron 4 mg, 2 mL, Route: IVP, Drug form: INJ, ONCE, Dosing Weight 75, kg, PRN Nausea & amp; Vomiting, Startdate: 05/01/16 10:01:00 SURVEILLANCE SYSTEMS ENGINEER Notes: (Same as: Zofran) MEDICATION WASTE Product Size: 4 mgProduct Wasted: ___ mg Start Date: 05/01/16 Stop Date: 05/01/16 Status: DiscontinuedBD Normal Saline Flush 10 mL, Route: IV, Drug Form: INJ, PRN, PRN Line Flush, Start date: 05/01/16 6:00 :00 SURVEILLANCE SYSTEMS ENGINEER, Duration: 30 day, Stop date: 05/31/16 5:59:00 SURVEILLANCE SYSTEMS ENGINEER Notes: (Same as: BD Posiflush) Start Date: 05/01/16 Stop Date: 05/02/16 Status: DiscontinuedceFAZolin 2 gm, 100 mL, Route: IVPB, Drug form: INJ, ONCALL, Start date: 05/01/16 6:00:00 SURVEILLANCE SYSTEMS ENGINEER, Duration: 1 doses or times, Stop date: 05/01/16 23:00:00 SURVEILLANCE SYSTEMS ENGINEER Notes: Same as: Ancef Start Date: 05/01/16 Stop Date: 05/01/16 Status: CompletedceFAZolin (ANES) Route: IV, Drug form: INJ, ONCE, Stop date: 05/01/16 8:11:00 SURVEILLANCE SYSTEMS ENGINEER Start Date: 05/01/16 Stop Date: 05/01/16 Status: Completeddexamethasone (ANES) Route: IV, Drug form: INJ, ONCE, Stop date: 05/01/16 8:37:00 SURVEILLANCE SYSTEMS ENGINEER Start Date: 05/01/16 Stop Date: 05/01/16 Status: CompleteddiphenhydrAMINE 25 mg, 1 cap, Route: PO, Drug form: CAP, Bedtime, Dosing Weight 75, kg, PRN Insomnia, Start date: 05/01/16 10:57:00 SURVEILLANCE SYSTEMS ENGINEER, Duration: 30 day, Stop date: 10:56:00 SURVEILLANCE SYSTEMS ENGINEER Notes: (Same as: Benadryl) Start Date: 05/01/16 Stop Date: 05/02/16 Status: Discontinueddocusate 100 mg, 1 cap, Route: PO, Drug form: CAP, BID, Dosing Weight 75, kg, PRN as needed for constipation,Start date: 05/01/16 10:57:00 SURVEILLANCE SYSTEMS ENGINEER, Duration: 30 day, Stop date: 05/31/16 10:56:00 SURVEILLANCE SYSTEMS ENGINEER Notes: (Same as: Colace) (Do Not Crush) Start Date: 05/01/16 Stop Date: 05/02/16 Status: Discontinuedfamotidine (ANES) Route: IV, Drug form: INJ, ONCE, Stop date: 05/01/16 8:22:00 SURVEILLANCE SYSTEMS ENGINEER Start Date: 05/01/16 Stop Date: 05/01/16 Status: CompletedfentaNYL (ANES) Route: IV, Drug form: INJ, ONCE, Stop date: 05/01/16 8:37:00 SURVEILLANCE SYSTEMS ENGINEER Start Date: 05/01/16 Stop Date: 05/01/16 Status: Completedferrous sulfate 325 mg oral enteric coated tablet 325 mg=1 tab, PO, Daily, 0 Refill(s) Start Date: 04/24/16 Stop Date: 05/02/16 Status: Discontinuedglycopyrrolate (ANES) Route: IV, Drug form: INJ, ONCE, Stop date: 05/01/16 10:05:00 SURVEILLANCE SYSTEMS ENGINEER Start Date: 05/01/16 Stop Date: 05/01/16 Status: Completedhydromorphone (ANES) Route: IV, Drug form: INJ, ONCE, Stop date: 05/01/16 9:02:00 SURVEILLANCE SYSTEMS ENGINEER Start Date: 05/01/16 Stop Date: 05/01/16 Status: CompletedketOROLAC (ANES) IV, ONCE Start Date: 05/01/16 Stop Date: 05/01/16 Status: CompletedLactated Ringers 1,000 mL 1,000 mL, Rate: 125 ml/hr, Infuse over: 8 hr, Route: IV, Dosing Weight 75 kg, Total Volume: 1,000, Start date: 05/01/16 10:01:00 SURVEILLANCE SYSTEMS ENGINEER, Duration: 30 day, Stop date: 05/31/16 10:00:00 SURVEILLANCE SYSTEMS ENGINEER Start Date: 05/01/16 Stop Date: 05/01/16 Status: DiscontinuedLactated Ringers 1,000 mL 1,000 mL, Rate: 25 ml/hr, Infuse over: 40 hr, Route: IV, Dosing Weight 74.091 kg , Total Volume: 1,000, Start date: 05/01/16 6:57:00 SURVEILLANCE SYSTEMS ENGINEER, Duration: 30 day, Stop date: 05/31/16 6:56:00 SURVEILLANCE SYSTEMS ENGINEER Start Date: 05/01/16 Stop Date: 05/01/16 Status: DiscontinuedLactated Ringers 1,000 mL 1,000 mL, Rate: 125 ml/hr, Infuse over: 8 hr, Route: IV, Dosing Weight 75 kg, Total Volume: 1,000, Start date: 05/01/16 10:57:00 SURVEILLANCE SYSTEMS ENGINEER, Duration: 30 day, Stop date: 05/31/16 10:56:00 SURVEILLANCE SYSTEMS ENGINEER Start Date: 05/01/16 Stop Date: 05/02/16 Status: Discontinuedlidocaine (ANES) Route: IV, Drug form: INJ, ONCE, Stop date: 05/01/16 8:37:00 SURVEILLANCE SYSTEMS ENGINEER Start Date: 05/01/16 Stop Date: 05/01/16 Status: CompletedLR 1000 mL INJ (ANES) Route: IV, Total Volume: 1,000, Start date: 05/01/16 7:35:00 SURVEILLANCE SYSTEMS ENGINEER, Stop date: 09/09 8:35:00 SURVEILLANCE SYSTEMS ENGINEER Start Date: 05/01/16 Stop Date: 05/01/16 Status: Completedmetoclopramide (ANES) Route: IV, Drug form: INJ, ONCE, Stop date: 05/01/16 8:37:00 SURVEILLANCE SYSTEMS ENGINEER Start Date: 05/01/16 Stop Date: 05/01/16 Status: Completedmidazolam (ANES) Route: IV, Drug form: SOLN, ONCE, Stop date: 05/01/16 8:37:00 SURVEILLANCE SYSTEMS ENGINEER Start Date: 05/01/16 Stop Date: 05/01/16 Status: Completedmorphine Sulfate 2 mg, 1 mL, Route: IVP, Drug form: INJ, Q4H, Dosing Weight 75, kg, PRN Pain Score 7-10, Start date: 05/01/16 10:57:00 SURVEILLANCE SYSTEMS ENGINEER, Duration: 30 day, Stop date: 11/09 10:56:00 SURVEILLANCE SYSTEMS ENGINEER Notes: (Same as:MORPhine Sulfate) Start Date: 05/01/16 Stop Date: 05/02/16 Status: DiscontinuedMylicon 160 mg, 2 tab, Route: CHEW, Drug form: CHEWTAB, TID, Dosing Weight 75, kg, Start date: 05/01/16 13:00:00 SURVEILLANCE SYSTEMS ENGINEER, Duration: 30 day, Stop date: 05/31/16 9:00: 00 SURVEILLANCE SYSTEMS ENGINEER Notes: (Same as: Mylicon) Start Date: 05/01/16 Stop Date: 05/02/16 Status: Discontinuedneostigmine (ANES) Route: IV, Drug form: INJ, ONCE, Stop date: 05/01/16 10:05:00 SURVEILLANCE SYSTEMS ENGINEER Start Date: 05/01/16 Stop Date: 05/01/16 Status: CompletedNexIUM 20 mg oral delayed release capsule 20 mg=1 cap, PO, Daily, 0 Refill(s) Start Date: 04/24/16 Status: Orderedondansetron 4 mg, 2 mL, Route: IVP, Drug form: INJ, Q8H, Dosing Weight 75, kg, PRN Nausea & amp; Vomiting, Start date: 05/01/16 10:57:00 SURVEILLANCE SYSTEMS ENGINEER, Duration: 30 day, Stop date: 05/31/16 10:56:00 SURVEILLANCE SYSTEMS ENGINEER Notes: (Same as: Zofran) MEDICATION WASTE Product Size: 4 mgProduct Wasted: ___ mg Start Date: 05/01/16 Stop Date: 05/02/16 Status: Discontinuedondansetron (ANES) Route: IV, Drug form: INJ, ONCE, Stop date: 05/01/16 10:05:00 SURVEILLANCE SYSTEMS ENGINEER Start Date: 05/01/16 Stop Date: 05/01/16 Status: Completedphenylephrine (ANES) Route: IV, Drug form: INJ, ONCE, Stop date: 05/01/16 8:22:00 SURVEILLANCE SYSTEMS ENGINEER Start Date: 05/01/16 Stop Date: 05/01/16 Status: Completedpropofol (ANES) Route: IV, Drug form: INJ, ONCE, Stop date: 05/01/16 8:37:00 SURVEILLANCE SYSTEMS ENGINEER Start Date: 05/01/16 Stop Date: 05/01/16 Status: Completedrocuronium (ANES) Route: IV, Drug form: INJ, ONCE, Stop date: 05/01/16 8:37:00 SURVEILLANCE SYSTEMS ENGINEER Start Date: 05/01/16 Stop Date: 05/01/16 Status: Completedtramadol 50 mg oral tablet 50 mg=1 tab, PO, Q6H, PRN Pain, X 10 day, # 40 tab, 0 Refill(s) Start Date: 05/02/16 Stop Date: 05/12/16 Status: Ordered Results BLOOD BANK RESULTS Most recent to oldest [Reference Range]: 1 ABO/Rh B POS *Unknown* (04/24/16 10:31 AM) Antibody Scrn Negative (04/24/16 10:31 AM) ENDOCRINOLOGY Most recent to oldest [Reference Range]: 1 S Preg [Negative] Negative *NA* (05/01/16 7:00 AM) HEMATOLOGY Most recent to oldest [Reference Range]: 1 WBC [3.7-10.4 K/CMM] 5.4 K/CMM (04/24/16 10:30 AM) RBC [4.20-5.40 M/CMM] 4.29 M/CMM (04/24/16 10:30 AM) Hgb [12.0-16.0 g/dL] 12.2 g/dL (04/24/16 10:30 AM) Hct [36.0-48.0 %] 37.5 % (04/24/16 10:30 AM) MCV [80.0-98.0 fL] 87.6 fL (04/24/16 10:30 AM) MCH [27.0-31.0 pg] 28.5 pg (04/24/16 10:30 AM) MCHC [32.0-36.0 g/dL] 32.6 g/dL (04/24/16 10:30 AM) RDW [11.5-14.5 %] 15.8 % *HI* (04/24/16 10:30 AM) Platelet [133-450 K/CMM] 263 K/CMM (04/24/16 10:30 AM) MPV [7.4-10.4 fL] 8.6 fL (04/24/16 10:30 AM) Segs [45.0-75.0 %] 60.9 % (04/24/16 10:30 AM) Lymphocytes [20.0-40.0 %] 29.1 % (04/24/16 10:30 AM) Monocytes [2.0-12.0 %] 7.7 % (04/24/16 10:30 AM) Eosinophils [0.0-4.0 %] 1.8 % (04/24/16 10:30 AM) Basophils [0.0-1.0 %] 0.5 % (04/24/16 10:30 AM) Segs-Bands # [1.5-8.1 K/CMM] 3.3 K/CMM (04/24/16 10:30 AM) Lymphocytes # [1.0-5.5 K/CMM] 1.6 K/CMM (04/24/16 10:30 AM) Monocytes # [0.0-0.8 K/CMM] 0.4 K/CMM (04/24/16 10:30 AM) Eosinophils # [0.0-0.5 K/CMM] 0.1 K/CMM (04/24/16 10:30 AM) Basophils # [0.0-0.2 K/CMM] 0.0 K/CMM (04/24/16 10:30 AM) Immunizations No data available for this section Procedures Procedure Date Related Diagnosis Body Site Laparoscopic hysterectomy 05/01/16 section1 1x 2 Social History Social History Type Response Substance Abuse Use: None. Exercise 1 Employment/School Status: Employed. Alcohol Never Smoking Status Never smoker; Type: Cigarettes; Exposure to Tobacco Smoke None; Cigarette Smoking Last 365 Days No; Reg Smoking Cessation Counseling No 1no Assessment and Plan Extracted from: Title: Discharge note / [facility] Author: Darren Mars MD Date: 05/02/16 Impression and Plan The patient condition is stable. The patient will be sent home today with pain medication. The diet, activities nad ambulation have been discussed with the patients. She returns in 2 weeks for follow-up.
--- NOTE | 2017-11-14 23:14 | EDPHYS ---
Physician Documentation [facility] Name: Roxana Sanchez Age: 42 yrs Sex: Female : 1975 Arrival Date: 11/14/2017 Time: 22:20 Bed 14 Private MD: ED Physician Nomi Fritz HPI: 11/14 23:04 This 42 yrs old Black Female presents to ER via Unassigned with complaints of Shortness gs Of Breath. 23:04 Onset: The symptoms/episode began/occurred gradually, 2 day(s) ago. Duration: The gs symptoms are continuous. The patient's shortness of breath is aggravated by drinking, eating, swallowing. Associated signs and symptoms: Pertinent negatives: fever. Severity of symptoms: At their worst the symptoms were mild in the emergency department the symptoms are unchanged. The patient has experienced similar episodes in the past, a few times. says uvula is enlarged can feel on back of tongue. 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 - Social history:: The patient lives at home, Smoking status: Patient/guardian denies using tobacco, Patient/guardian denies using alcohol, street drugs, IV drugs. - Ebola Screening: : No symptoms or risks identified at this time. ROS: 23:09 All other systems are negative. gs Exam: 23:09 Head/Face: Normocephalic, atraumatic. Eyes: Pupils equal round and reactive to light, gs extra-ocular motions intact. Lids and lashes normal. Conjunctiva and sclera are non-icteric and not injected. Cornea within normal limits. Periorbital areas with no swelling, redness, or edema. Neck: Trachea midline, no thyromegaly or masses palpated, and no cervical lymphadenopathy. Supple, full range of motion without nuchal rigidity, or vertebral point tenderness. No Meningismus. Chest/axilla: Normal chest wall appearance and motion. Nontender with no deformity. No lesions are appreciated. Cardiovascular: Regular rate and rhythm with a normal S1 and S2. No gallops, murmurs, or rubs. Normal PMI, no JVD. No pulse deficits. Respiratory: Lungs have equal breath sounds bilaterally, clear to auscultation and percussion. No rales, rhonchi or wheezes noted. No increased work of breathing, no retractions or nasal flaring. Abdomen/GI: Soft, non-tender, with normal bowel sounds. No distension or tympany. No guarding or rebound. No evidence of tenderness throughout. Back: No spinal tenderness. No costovertebral tenderness. Full range of motion. Skin: Warm, dry with normal turgor. Normal color with no rashes, no lesions, and no evidence of cellulitis. MS/ Extremity: Pulses equal, no cyanosis. Neurovascular intact. Full, normal range of motion. Neuro: Awake and alert, GCS 15, oriented to person, place, time, and situation. Cranial nerves II-XII grossly intact. Motor strength 5/5 in all extremities. Sensory grossly intact. Cerebellar exam normal. Normal gait. 23:09 Constitutional: The patient appears alert, awake. 23:09 ENT: Posterior pharynx: Uvula: midline, no erythema, edematous, elongated airway open nl voice. Vital Signs: 23:21 BP 124 / 90; Pulse 90; Resp 18; Temp 98.8; Pulse Ox 98% on R/A; Weight 74.84 kg; Height mg2 5 ft. 4 in. (162.56 cm); Pain 3/10; 23:21 Body Mass Index 28.32 (74.84 kg, 162.56 cm) mg2 MDM: 22:39 Patient medically screened. 23:09 Data reviewed: vital signs, nurses notes, and as a result, I will discharge patient. Counseling: I had a detailed discussion with the patient and/or guardian regarding: the historical points, exam findings, and any diagnostic results supporting the discharge/admit diagnosis, the need for outpatient follow up. Administered Medications: No medications were administered Disposition: 11/14/17 23:14 Discharged to Home. Impression: uvulitis. - Condition is Stable. - Discharge Instructions: Uvulitis. - Prescriptions for Keflex 500 mg Oral Capsule - take 1 capsule by ORAL route every 12 hours for 7 days; 14 capsule. Prednisone 20 mg Oral Tablet - take 1 tablet by ORAL route once daily for 5 days; 5 tablet. - Medication Reconciliation Form, Thank You Letter, Antibiotic Education, Prescription Opioid Use form. - Follow up: Private Physician; When: 2 - 3 days; Reason: Re-evaluation by your physician. Follow up: Jackelyn Jackman MD; When: 2 - 3 days; Reason: Re-evaluation by your physician. Signatures: Nomi Fritz MD MD Glenroy Malloy, RN RN mg2 Corrections: (The following items were deleted from the chart) 23:26 23:14 11/14/2017 23:14 Discharged to Home. Impression: uvulitis. Condition is Stable. mg2 Forms are Medication Reconciliation Form, Thank You Letter, Antibiotic Education, Prescription Opioid Use. Follow up: Private Physician; When: 2 - 3 days; Reason: Re-evaluation by your physician. Follow up: Jackelyn Jackman; When: 2 - 3 days; Reason: Re-evaluation by your physician. gs
--- NOTE | 2017-11-14 23:26 | ER ---
Nurse's Notes [facility] Name: Roxana Sanchez Age: 42 yrs Sex: Female : 1975 Arrival Date: 11/14/2017 Time: 22:20 Bed 14 Private MD: Diagnosis: uvulitis Presentation: 11/14 23:20 Presenting complaint: Patient states: she is having cracked tongue and inflamed uvula mg2 with metallic taste in the mouth for 2 weeks already.. Transition of care: patient was not received from another setting of care. Onset of symptoms was October 2017. Risk Assessment: Do you want to hurt yourself or someone else? Patient reports no desire to harm self or others. Initial Sepsis Screen: Does the patient meet any 2 criteria? Yes Does the patient have a suspected source of infection? No. Patient's initial sepsis screen is negative. Care prior to arrival: None. 23:20 Method Of Arrival: Ambulatory mg2 23:20 Acuity: DELMI 4 mg2 Triage Assessment: 23:24 General: Appears in no apparent distress. comfortable. Respiratory: Reports. mg2 Respiratory: No deficits noted. 23:25 Respiratory:. 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 - Social history:: The patient lives at home, Smoking status: Patient/guardian denies using tobacco, Patient/guardian denies using alcohol, street drugs, IV drugs. - Ebola Screening: : No symptoms or risks identified at this time. Screenin:24 Abuse screen: Denies threats or abuse. Denies injuries from another. Nutritional mg2 screening: No deficits noted. Tuberculosis screening: No symptoms or risk factors identified. Fall Risk None identified. Assessment: 23:23 General: Appears in no apparent distress. comfortable, Behavior is calm, cooperative. mg2 Pain: Denies pain. Neuro: Level of Consciousness is awake, alert, obeys commands, Oriented to person, place, time. Cardiovascular: Capillary refill < 3 seconds Patient's skin is warm and dry. Rhythm is regular. Respiratory: Airway is patent Respiratory effort is even, unlabored, Breath sounds are clear. GI: No signs and/or symptoms were reported involving the gastrointestinal system. : No signs and/or symptoms were reported regarding the genitourinary system. EENT: No signs and/or symptoms were reported regarding the EENT system. Derm: Skin is intact, Skin is pink, warm \T\ dry. normal. Musculoskeletal: No signs and/or symptoms reported regarding the musculoskeletal system. Vital Signs: 23:21 BP 124 / 90; Pulse 90; Resp 18; Temp 98.8; Pulse Ox 98% on R/A; Weight 74.84 kg; Height mg2 5 ft. 4 in. (162.56 cm); Pain 3/10; 23:21 Body Mass Index 28.32 (74.84 kg, 162.56 cm) mg2 ED Course: 22:20 Patient arrived in ED. ds1 22:32 Nomi Fritz MD is Attending Physician. gs 23:12 Glenroy Malloy, RN is Primary Nurse. mg2 23:13 Jackelyn Jackman MD is Referral Physician. gs 23:21 Triage completed. mg2 23:22 Arm band placed on. mg2 23:24 Assist provider with bone marrow aspiration. Patient did not have IV access during this mg2 emergency room visit. 23:25 Patient has correct armband on for positive identification. Pulse ox on. NIBP on. mg2 Administered Medications: No medications were administered Outcome: 23:14 Discharge ordered by . gs 23:25 Discharged to home ambulatory, with family. mg2 23:25 Condition: stable 23:25 Discharge instructions given to patient, family, Instructed on discharge instructions, follow up and referral plans. medication usage, Demonstrated understanding of instructions, follow-up care, medications, Prescriptions given X 2. 23:26 Patient left the ED. mg2 Signatures: Sridevi Jeffries ds1 Nomi Fritz MD MD Glenroy Malloy, RN RN mg2
== END 2017-11-14 23:26 | disposition home or self-care (01) ==
LOC: ER 22:19
DX: K12.2 Cellulitis and abscess of mouth (principal); Z88.5 Allergy status to narcotic agent
CPT/HCPCS: 99284

== ENCOUNTER 2018-04-06 16:35 | Emergency (ER) | payer SELFPAY ==
--- NOTE | 2018-04-06 17:04 | EDPHYS ---
Physician Documentation [facility] Name: Roxana Sanchez Age: 43 yrs Sex: Female : 1975 Arrival Date: 04/06/2018 Time: 16:38 Bed 17 Private MD: ED Physician Nomi Fritz HPI: 04/06 17:10 This 43 yrs old Black Female presents to ER via Ambulatory with complaints of snw Depression. 17:10 Onset: The symptoms/episode began/occurred gradually. Associated signs and symptoms: snw Pertinent positives: loss of interest in people, activities, crying for unknown reasons intermittently. Pt was on medication before for depression and anxiety. Cannot remember names of meds, no PCP here as she just moved a few months ago. Modifying factors: The patient symptoms are alleviated by nothing. The patient has experienced similar episodes in the past. The patient has not recently seen a physician, and does not have an established primary care provider, just moved to [facility]. Historical: - Allergies: 16:42 Vicodin; sv - PMHx: 16:42 acid reflux; Anemia; Anxiety; sv - Immunization history:: Flu vaccine is not up to date. - Social history:: Smoking status: Patient/guardian denies using tobacco. - Ebola Screening: : No symptoms or risks identified at this time. ROS: 17:07 Constitutional: Negative for fever, chills, and weight loss, Eyes: Negative for injury, snw pain, redness, and discharge, ENT: Negative for injury, pain, and discharge, Neck: Negative for injury, pain, and swelling, Cardiovascular: Negative for chest pain, palpitations, and edema, Respiratory: Negative for shortness of breath, cough, wheezing, and pleuritic chest pain, Abdomen/GI: Negative for abdominal pain, nausea, vomiting, diarrhea, and constipation, Back: Negative for injury and pain, : Negative for injury, bleeding, discharge, and swelling, MS/Extremity: Negative for injury and deformity, Skin: Negative for injury, rash, and discoloration, Neuro: Negative for headache, weakness, numbness, tingling, and seizure, Psych: Positive for depression, anxiety, negative for suicide ideation, homicidal ideation, and hallucinations. Exam: 17:06 Constitutional: This is a well developed, well nourished patient who is awake, alert, snw and in no acute distress. Head/Face: Normocephalic, atraumatic. Eyes: Pupils equal round and reactive to light, extra-ocular motions intact. Lids and lashes normal. Conjunctiva and sclera are non-icteric and not injected. Cornea within normal limits. Periorbital areas with no swelling, redness, or edema. ENT: Nares patent. No nasal discharge, no septal abnormalities noted. Tympanic membranes are normal and external auditory canals are clear. Oropharynx with no redness, swelling, or masses, exudates, or evidence of obstruction, uvula midline. Mucous membranes moist. Neck: Trachea midline, no thyromegaly or masses palpated, and no cervical lymphadenopathy. Supple, full range of motion without nuchal rigidity, or vertebral point tenderness. No Meningismus. Chest/axilla: Normal chest wall appearance and motion. Nontender with no deformity. No lesions are appreciated. Cardiovascular: Regular rate and rhythm with a normal S1 and S2. No gallops, murmurs, or rubs. Normal PMI, no JVD. No pulse deficits. Respiratory: Lungs have equal breath sounds bilaterally, clear to auscultation and percussion. No rales, rhonchi or wheezes noted. No increased work of breathing, no retractions or nasal flaring. Abdomen/GI: Soft, non-tender, with normal bowel sounds. No distension or tympany. No guarding or rebound. No evidence of tenderness throughout. Back: No spinal tenderness. No costovertebral tenderness. Full range of motion. Skin: Warm, dry with normal turgor. Normal color with no rashes, no lesions, and no evidence of cellulitis. MS/ Extremity: Pulses equal, no cyanosis. Neurovascular intact. Full, normal range of motion. Neuro: Awake and alert, GCS 15, oriented to person, place, time, and situation. Cranial nerves II-XII grossly intact. Motor strength 5/5 in all extremities. Sensory grossly intact. Cerebellar exam normal. Normal gait. Psych: Awake, alert, with orientation to person, place and time. Behavior, mood, and affect are within normal limits. Pt states she has lost interest in most things, feels disconnected. Denies SI, HI Vital Signs: 16:42 BP 140 / 93; Pulse 74; Resp 16; Temp 98.1; Pulse Ox 99% ; Weight 77.11 kg; Height 5 ft. sv 4 in. (162.56 cm); Pain 0/10; 16:42 Body Mass Index 29.18 (77.11 kg, 162.56 cm) sv MDM: 16:54 Patient medically screened. snw 17:16 Data reviewed: vital signs, nurses notes. Data interpreted: Pulse oximetry: on room air snw is 99 %. Interpretation: normal. Counseling: I had a detailed discussion with the patient and/or guardian regarding: the historical points, exam findings, and any diagnostic results supporting the discharge/admit diagnosis, the presence of at least one elevated blood pressure reading (>120/80) during this emergency department visit, radiology results, the need for outpatient follow up, to return to the emergency department if symptoms worsen or persist or if there are any questions or concerns that arise at home. Special discussion: I have referred the patient to see his PCP for further evaluation of high blood pressure. Based on the history and exam findings, there is no indication for further emergent testing or inpatient evaluation. I discussed with the patient/guardian the need to see the primary care provider for further evaluation of the symptoms. I discussed with the patient/guardian the need to see the psychiatrist for further evaluation of the symptoms. Administered Medications: 17:10 Drug: Atarax 50 mg Route: PO; em 17:23 Follow up: Response: Medication administered at discharge. em Disposition: 04/06/18 17:03 Discharged to Home. Impression: Adjustment disorder, unspecified. - Condition is Stable. - Discharge Instructions: Adjustment Disorder, Adult, Complicated Grieving. - Prescriptions for Clonidine 0.1 mg Oral Tablet - take 1 tablet by ORAL route once daily; 60 tablet. - Medication Reconciliation Form, Thank You Letter, Antibiotic Education, Prescription Opioid Use form. - Follow up: Emergency Department; When: As needed; Reason: Worsening of condition. Follow up: Private Physician; When: 5 - 6 days; Reason: Recheck today's complaints, Continuance of care. Addendum: 04/09/2018 10:18 Co-signature as Attending Physician, Nomi Fritz MD. g s Signatures: Jackelyn Cagle, RN RN sv Mague Wing, COMMUNITY HEALTH NURSING DIRECTOR-C COMMUNITY HEALTH NURSING DIRECTOR-Csnw Tico Null, PARENT AIDE PARENT AIDE em Nomi Fritz MD MD Corrections: (The following items were deleted from the chart) 04/06 17:23 17:03 04/06/2018 17:03 Discharged to Home. Impression: Adjustment disorder, em unspecified. Condition is Stable. Forms are Medication Reconciliation Form, Thank You Letter, Antibiotic Education, Prescription Opioid Use. Follow up: Emergency Department; When: As needed; Reason: Worsening of condition. Follow up: Private Physician; When: 5 - 6 days; Reason: Recheck today's complaints, Continuance of care. snw
--- NOTE | 2018-04-06 17:04 | ER ---
Nurse's Notes [facility] Name: Roxana Sanchez Age: 43 yrs Sex: Female : 1975 Arrival Date: 04/06/2018 Time: 16:38 Bed 17 Private MD: Diagnosis: Adjustment disorder, unspecified Presentation: 04/06 16:40 Presenting complaint: Patient states: "I want to be evaluated for anxiety and sv depression. I don't know if its my hormones. But I don't feel happy about myself anymore." Denies SI, or HI. Transition of care: patient was not received from another setting of care. Onset of symptoms was 2018. Risk Assessment: Do you want to hurt yourself or someone else? Patient reports no desire to harm self or others. Care prior to arrival: None. 16:40 Method Of Arrival: Ambulatory sv 16:40 Acuity: DELMI 4 sv Historical: - Allergies: 16:42 Vicodin; sv - PMHx: 16:42 acid reflux; Anemia; Anxiety; sv - Immunization history:: Flu vaccine is not up to date. - Social history:: Smoking status: Patient/guardian denies using tobacco. - Ebola Screening: : No symptoms or risks identified at this time. Screenin:00 Abuse screen: Denies threats or abuse. Nutritional screening: No deficits noted. em Tuberculosis screening: No symptoms or risk factors identified. Fall Risk None identified. Assessment: 17:00 General: Appears in no apparent distress. comfortable, Behavior is cooperative, flat, em quiet, Denies being suicidal or homicidal reports being sad and not being herself. Pain: Denies pain. Neuro: Level of Consciousness is awake, alert, obeys commands, Oriented to person, place, time, situation. Cardiovascular: Patient's skin is warm and dry. Respiratory: Airway is patent Respiratory effort is even, unlabored, Respiratory pattern is regular, symmetrical. Derm: Skin is intact, is healthy with good turgor, Skin is pink, warm \\T\\ dry. Musculoskeletal: Range of motion: intact in all extremities. 17:21 Reassessment: given resources and [facility] number at discharge. em Vital Signs: 16:42 BP 140 / 93; Pulse 74; Resp 16; Temp 98.1; Pulse Ox 99% ; Weight 77.11 kg; Height 5 ft. sv 4 in. (162.56 cm); Pain 0/10; 16:42 Body Mass Index 29.18 (77.11 kg, 162.56 cm) sv ED Course: 16:38 Patient arrived in ED. as 16:41 Triage completed. sv 16:42 Arm band placed on Patient placed in an exam room, on a stretcher. sv 16:44 Tico Null LVN is Primary Nurse. em 16:54 Mague Wing FNP-C [facility]. snw 16:54 Nomi Fritz MD is Attending Physician. snw 17:00 Patient has correct armband on for positive identification. Bed in low position. Call em light in reach. Side rails up X2. Adult w/ patient. 17:18 No provider procedures requiring assistance completed. Patient did not have IV access em during this emergency room visit. Administered Medications: 17:10 Drug: Atarax 50 mg Route: PO; em 17:23 Follow up: Response: Medication administered at discharge. em Outcome: 17:03 Discharge ordered by . snw 17:22 Discharged to home ambulatory, with family. em 17:22 Condition: good 17:22 Discharge instructions given to patient, family, Instructed on discharge instructions, follow up and referral plans. medication usage, Demonstrated understanding of instructions, follow-up care, medications, Prescriptions given X 1. 17:23 Patient left the ED. em Signatures: Jackelyn Cagle RN RN Mague Wing FNP-C FNP-CsnTico Almeida LVN SPORTS MEDICINE SPECIALIST em Kaykay Juárez as Corrections: (The following items were deleted from the chart) 17:21 17:00 General: Appears in no apparent distress. comfortable, Behavior is cooperative, em flat, quiet, em
[2018-04-06] MEDS ORDERED: hydrOXYzine HCl 25 MG TAB ONE (17:19)
== END 2018-04-06 17:23 | disposition home or self-care (01) ==
LOC: ER 16:35
DX: F43.20 Adjustment disorder, unspecified (principal)
CPT/HCPCS: 99283

== ENCOUNTER 2018-07-12 01:24 | Emergency (ER) | payer SELFPAY ==
--- OUTSIDE RECORDS SUMMARY | 2018-07-12 01:26 | XMS REPORT | Summary of Care ---
:1975 Author Organization [facility] Address [address] [place] [id number]- Encounter HQ Chante(FIN) [id number] Date(s): 10/25/17 - 10/26/[address] [address]- Encounter Diagnosis GERD (gastroesophageal reflux disease) (Discharge Diagnosis) - 10/26/17 Gastro-esophageal reflux disease without esophagitis (Final) - 10/31/17 Hyperlipidemia, unspecified (Final) - prison (current) use of aspirin (Final) - Discharge Disposition: Home or Self Care Attending Physician: Juve Cisneros MD Vital Signs Most recent to oldest [Reference Range]: 1 2 Temperature Oral [96.4-99.1 DegF] 98.2 DegF 98.2 DegF (10/26/17 2:51 AM) (10/25/17 7:18 PM) Blood Pressure [90-140/60-90 mmHg] 128/80 mmHg 130/89 mmHg (10/26/17 2:51 AM) (10/25/17 7:18 PM) Respiratory Rate [14-20 BRMIN] 18 BRMIN 19 BRMIN (10/26/17 2:51 AM) (10/25/17 7:18 PM) Peripheral Pulse Rate [60-100 bpm] 80 bpm 82 bpm (10/26/17 2:51 AM) (10/25/17 7:18 PM) Weight 77.273 kg (10/25/17 7:18 PM) Problem List Condition Effective Dates Status Health Status Informant Anemia(Confirmed) Active Dysmenorrhea(Confirmed) Active Hyperlipidemia(Confirmed) Resolved Menorrhagia(Confirmed) Active None(Confirmed) Resolved Uterine fibroid(Confirmed) Active Allergies, Adverse Reactions, Alerts Substance Reaction Severity Status Vicodin pass out Active Medications aspirin 324 mg, 4 tab, Route: CHEW, Drug form: CHEWTAB, ONCE, Dosing Weight 77.273, kg, Priority: STAT, Start date: 10/25/17 23:18:00 CDT, Stop date: 10/25/17 23:18:00 CDT Notes: Take with food. Start Date: 10/25/17 Stop Date: 10/26/17 Status: CompletedLidocaine Viscous 2% mucous membrane solution 15 mL, Route: PO, ONCE, Drug form: SOLN, Start date: 10/26/17 1:59:00 CDT, Stop date: 10/26/17 1:59:00 CDT Notes: (Same as: Xylocaine) Start Date: 10/26/17 Stop Date: 10/26/17 Status: CompletedMaalox Regular Strength TAB 1,500 mg, 3 tab, Route: CHEW, Drug Form: CHEWTAB, Dosing Weight 77.273, kg, ONCE , Start date: 10/26/17 1:12:00 CDT, Stop date: 10/26/17 1:12:00 CDT Notes: (Same As: Tums)Calcium Carbonate 500 fp=268 mg elemental calcium Dose=_ mg calcium carbonate ( mg elemental calcium) Start Date: 10/26/17 Stop Date: 10/26/17 Status: CompletedMaalox Regular Strength TAB 1,500 mg, 3 tab, Route: CHEW, Drug Form: CHEWTAB, Dosing Weight 77.273, kg, Daily, Start date: 10/26/17 9:00:00 CDT, Duration: 30 day, Stop date: 11/24/17 9 :00:00 CDT Notes: (Same As: Tums)Calcium Carbonate 500 zc=986 mg elemental calcium Dose=_ mg calcium carbonate ( mg elemental calcium) Start Date: 10/26/17 Stop Date: 10/26/17 Status: Voided With ResultsPepcid 40 mg oral tablet 40 mg=1 tab, PO, Daily, # 30 tab, 0 Refill(s) Start Date: 10/26/17 Stop Date: 11/25/17 Status: OrderedReglan 10 mg, 2 mL, Route: IVP, Drug form: INJ, ONCE, Dosing Weight 77.273, kg, Priority: STAT, Start date:10/26/17 1:17:00 CDT, Stop date: 10/26/17 1:17:00 CDT Notes: (Same as: Rajlan) Start Date: 10/26/17 Stop Date: 10/26/17 Status: Completed Results ELECTROLYTES Most recent to oldest [Reference Range]: 1 2 Sodium Lvl [135-145 mEq/L] 134 mEq/L *LOW* (10/25/17 8:51 PM) Potassium Lvl [3.5-5.1 mEq/L] 3.6 mEq/L (10/25/17 8:51 PM) Chloride Lvl [95-109 mEq/L] 103 mEq/L (10/25/17 8:51 PM) CO2 [24-32 mEq/L] 25 mEq/L (10/25/17 8:51 PM) AGAP [10.0-20.0 mEq/L] 9.6 mEq/L *LOW* (10/25/17 8:51 PM) CHEM PANEL Most recent to oldest [Reference Range]: 1 2 Creatinine Lvl [0.50-1.40 mg/dL] 0.70 mg/dL (10/25/17 8:51 PM) eGFR 124 mL/min/1.73m2 1 *NA* (10/25/17 8:51 PM) BUN [7-22 mg/dL] 8 mg/dL (10/25/17 8:51 PM) Glucose Lvl [70-99 mg/dL] 93 mg/dL (10/25/17 8:51 PM) Total Protein [6.4-8.4 g/dL] 8.4 g/dL (10/25/17 8:51 PM) Albumin Lvl [3.5-5.0 g/dL] 3.7 g/dL (10/25/17 8:51 PM) Globulin [2.7-4.2 g/dL] 4.7 g/dL *HI* (10/25/17 8:51 PM) A/G Ratio [0.7-1.6] 0.8 (10/25/17 8:51 PM) Calcium Lvl [8.5-10.5 mg/dL] 10.3 mg/dL (10/25/17 8:51 PM) ALT [0-65 unit/L] 24 unit/L (10/25/17 8:51 PM) AST [0-37 unit/L] 18 unit/L (10/25/17 8:51 PM) Alk Phos [39-136 unit/L] 86 unit/L (10/25/17 8:51 PM) Bili Total [0.2-1.3 mg/dL] 0.6 mg/dL (10/25/17 8:51 PM) Bili Direct [0.0-0.3 mg/dL] 0.1 mg/dL (10/25/17 8:51 PM) Bili Indirect [0.0-1.0 mg/dL] 0.5 mg/dL (10/25/17 8:51 PM) Lipase Lvl [73-393 unit/L] 217 unit/L (10/25/17 8:51 PM) 1Result Comment: The eGFR is calculated [...] Range]: 1 2 Total CK [12-191 unit/L] 121 unit/L (10/25/17 8:51 PM) CK MB [0.5-3.6 ng/mL] <1.0 ng/mL (10/25/17 8:51 PM) CK MB Index [0.0-2.5] <0.8 (10/25/17 8:51 PM) Troponin-I [0.00-0.40 ng/mL] <0.02 ng/mL <0.02 ng/mL (10/26/17 12:19 AM) (10/25/17 8:51 PM) HEMATOLOGY Most recent to oldest [Reference Range]: 1 2 WBC [3.7-10.4 K/CMM] 6.9 K/CMM (10/25/17 8:51 PM) RBC [4.20-5.40 M/CMM] 4.49 M/CMM (10/25/17 8:51 PM) Hgb [12.0-16.0 g/dL] 13.8 g/dL (10/25/17 8:51 PM) Hct [36.0-48.0 %] 40.4 % (10/25/17 8:51 PM) MCV [80.0-98.0 fL] 90.0 fL (10/25/17 8:51 PM) MCH [27.0-31.0 pg] 30.7 pg (10/25/17 8:51 PM) MCHC [32.0-36.0 g/dL] 34.1 g/dL (10/25/17 8:51 PM) RDW [11.5-14.5 %] 13.4 % (10/25/17 8:51 PM) MPV [7.4-10.4 fL] 7.8 fL (10/25/17 8:51 PM) Platelet [133-450 K/CMM] 251 K/CMM (10/25/17 8:51 PM) Segs [45.0-75.0 %] 53.9 % (10/25/17 8:51 PM) Lymphocytes [20.0-40.0 %] 35.4 % (10/25/17 8:51 PM) Monocytes [2.0-12.0 %] 8.2 % (10/25/17 8:51 PM) Eosinophils [0.0-4.0 %] 2.1 % (10/25/17 8:51 PM) Basophils [0.0-1.0 %] 0.4 % (10/25/17 8:51 PM) Neutrophils # [1.5-8.1 K/CMM] 3.7 K/CMM (10/25/17 8:51 PM) Lymphocytes # [1.0-5.5 K/CMM] 2.4 K/CMM (10/25/17 8:51 PM) Monocytes # [0.0-0.8 K/CMM] 0.6 K/CMM (10/25/17 8:51 PM) Eosinophils # [0.0-0.5 K/CMM] 0.1 K/CMM (10/25/17 8:51 PM) Basophils # [0.0-0.2 K/CMM] 0.0 K/CMM (10/25/17 8:51 PM) Immunizations No data available for this [...] Reg Smoking Cessation Counseling No entered on: 04/10/18 1no Assessment and Plan No data available for this section
--- OUTSIDE RECORDS SUMMARY | 2018-07-12 01:27 | XMS REPORT | Summary of Care ---
:1975 Author Organization [facility] Address [id number] [place] [id number]- Encounter HQ Udayr_yudelka(FIN) [id number] Date(s): 10/13/17 - 10/13/[address] [address] [phone] Encounter Diagnosis Ureterolithiasis (Discharge Diagnosis) - 10/13/17 Renal colic (Discharge Diagnosis) - 10/13/17 Calculus of ureter (Final) - 10/18/17 Unspecified renal colic (Final) - Essential (primary) hypertension (Final) - Acquired absence of both cervix and uterus (Final) - Discharge Disposition: Home or Self [...] Start Date: 10/13/17 Stop Date: 10/23/17 Status: Completedondansetron 4 mg, 2 mL, Route: IVP, Drug form: INJ, ONCE, Dosing Weight 76, kg, Priority: STAT, Start date: 10/13/17 9:54:00 CDT, Stop date: 10/13/17 9:54:00 CDT Notes: (Same as: Loni) MEDICATION WASTE Product Size: 4 mgProduct Wasted: [...] [0.0-1.0 %] 0.4 % (10/13/17 10:16 AM) Neutrophils # [1.5-8.1 K/CMM] 4.8 K/CMM (10/13/17 10:16 [...]
--- OUTSIDE RECORDS SUMMARY | 2018-07-12 01:27 | XMS REPORT | CCD ---
:[address] [facility] Care Team Providers Name Role Phone Shala [...]
--- OUTSIDE RECORDS SUMMARY | 2018-07-12 01:27 | XMS REPORT | Summary of Care ---
:[address] [facility] Address [id number] [place] [id number]- Encounter HQ Udayr_yudelka(FIN) [id number] Date(s): 11/16/17 - 11/17/[address] [phone] Encounter Diagnosis Myalgia (Discharge Diagnosis) - 11/17/17 SOB (shortness of breath) (Discharge Diagnosis) - 11/17/17 Shortness of breath (Final) - 11/22/17 Weakness (Final) - Myalgia (Final) - Anemia, unspecified (Final) - Hyperlipidemia, unspecified (Final) - Acquired absence of both cervix and uterus (Final) - Discharge Disposition: Home or Self Care Attending Physician: Shirley Holland DO Vital Signs Most recent to oldest 1 2 3 [Reference Range]: Temperature Oral [96.4-99.1 98 DegF 98 DegF DegF] (11/17/17 1:13 AM) (11/16/17 9:49 PM) Blood Pressure [90-140/60-90 128/74 mmHg 130/80 mmHg 137/88 mmHg mmHg] (11/17/17 1:13 AM) (11/17/17 12:22 AM) (11/16/17 9:49 PM) Respiratory Rate [14-20 BRMIN] 18 BRMIN 18 BRMIN 18 BRMIN (11/17/17 1:13 AM) (11/17/17 12:22 AM) (11/16/17 9:49 PM) Peripheral Pulse Rate [60-100 85 bpm 80 bpm 87 bpm bpm] (11/17/17 1:13 AM) (11/17/17 12:22 AM) (11/16/17 9:49 PM) Weight 68.182 kg (11/16/17 9:49 PM) Problem List Condition Effective Dates Status Health Status Informant Anemia(Confirmed) Active Dysmenorrhea(Confirmed) Active Hyperlipidemia(Confirmed) Resolved Menorrhagia(Confirmed) Active None(Confirmed) Resolved Uterine fibroid(Confirmed) Active Allergies, Adverse Reactions, Alerts Substance Reaction Severity Status Vicodin pass out Active Medications ibuprofen 800 mg oral tablet 800 mg=1 tab, PO, Q8H, # 30 tab, 0 Refill(s) Start Date: 11/17/17 Stop Date: 11/24/17 Status: CompletedSaline Flush 0.9% 10 mL, Route: IVP, Drug Form: INJ, Dosing Weight 68.182, kg, PRN, PRN Line Flush , Start date: 11/16/17 22:01:00 CDT, Duration: 30 day, Stop date: 12/16/17 22:00 :00 CDT Notes: (Same as: BD Posiflush) Start Date: 11/16/17 Stop Date: 11/17/17 Status: DiscontinuedSodium Chloride 0.9% (Bolus) IV 1,000 mL, 1000 ml/hr, Infuse Over: 1 hr, Route: IV, 1,000, Drug form: INJ, ONCE , Priority: STAT, Dosing Weight 68.182 kg, Start date: 11/16/17 22:04:00 CDT, Stop date: 11/16/17 22:04:00 CDT Start Date: 11/16/17 Stop Date: 11/16/17 Status: Completed Results ELECTROLYTES Most recent to oldest [Reference Range]: 1 Sodium Lvl [135-145 mEq/L] 138 mEq/L (11/16/17 11:23 PM) Potassium Lvl [3.5-5.1 mEq/L] 4.1 mEq/L (11/16/17 11:23 PM) Chloride Lvl [95-109 mEq/L] 103 mEq/L (11/16/17 11:23 PM) CO2 [24-32 mEq/L] 26 mEq/L (11/16/17 11:23 PM) AGAP [10.0-20.0 mEq/L] 13.1 mEq/L (11/16/17 11:23 PM) CHEM PANEL Most recent to oldest [Reference Range]: 1 Creatinine Lvl [0.50-1.40 mg/dL] 0.80 mg/dL (11/16/17 11:23 PM) eGFR 104 mL/min/1.73m2 1 *NA* (11/16/17 11:23 PM) BUN [7-22 mg/dL] 6 mg/dL *LOW* (11/16/17 11:23 PM) B/C Ratio [6-25] 8 (11/16/17 11:23 PM) Glucose Lvl [70-99 mg/dL] 102 mg/dL *HI* (11/16/17 11:23 PM) Total Protein [6.4-8.4 g/dL] 8.9 g/dL *HI* (11/16/17 11:23 PM) Albumin Lvl [3.5-5.0 g/dL] 3.7 g/dL (11/16/17 11:23 PM) Globulin [2.7-4.2 g/dL] 5.2 g/dL *HI* (11/16/17 11:23 PM) A/G Ratio [0.7-1.6] 0.7 (11/16/17 11:23 PM) Calcium Lvl [8.5-10.5 mg/dL] 10.8 mg/dL *HI* (11/16/17 11:23 PM) Phosphorus [2.5-4.5 mg/dL] 1.9 mg/dL *LOW* (11/16/17 11:23 PM) Magnesium Lvl [1.8-2.4 mg/dL] 2.2 mg/dL (11/16/17 11:23 PM) ALT [0-65 unit/L] 24 unit/L (11/16/17 11:23 PM) AST [0-37 unit/L] 27 unit/L (11/16/17 11:23 PM) Alk Phos [39-136 unit/L] 86 unit/L (11/16/17 11:23 PM) Bili Total [0.2-1.3 mg/dL] 0.5 mg/dL (11/16/17 11:23 PM) 1Result Comment: The eGFR is calculated [...] Most recent to oldest [Reference Range]: 1 Total CK [12-191 unit/L] 191 unit/L (11/16/17 11:23 PM) Troponin-I [0.00-0.40 ng/mL] <0.02 ng/mL (11/16/17 11:23 PM) ENDOCRINOLOGY Most recent to oldest [Reference Range]: 1 S Preg [Negative] Negative *NA* (11/16/17 11:23 PM) URINE AND STOOL Most recent to oldest [Reference Range]: 1 UA Turbidity [Clear] Slight *ABN* (11/17/17 12:22 AM) UA Color [Yellow] Yellow *NA* (11/17/17 12: AM) UA pH [5.0-8.0] 7.0 (11/17/17 12: AM) UA Spec Grav [<=1.030] 1.011 (11/17/17 12:22 AM) UA Glucose [Negative mg/dL] Negative mg/dL *NA* (11/17/17 AM) UA Blood [Negative] Negative (11/17/17 12: AM) UA Ketones [Negative mg/dL] Negative mg/dL *NA* (11/17/17 12: AM) UA Protein [Negative mg/dL] Negative mg/dL (11/17/17 12:22 AM) UA Urobilinogen [0.1-1.0 mg/dL] 4.0 mg/dL *HI* (11/17/17 12:22 AM) UA Bili [Negative] Negative *NA* (11/17/17 12:22 AM) UA Leuk Est [Negative] Negative (11/17/17 12: AM) UA Nitrite [Negative] Negative (11/17/17 12:22 AM) UA WBC [0-5 /HPF] 3 /HPF (11/17/17 12:22 AM) UA Bacteria [None Seen /HPF] Occasional /HPF *NA* (11/17/17 12:22 AM) UA Sq Epi [Few /LPF] Occasional /LPF *NA* (11/17/17 12:22 AM) UA CaOx Judy [None Seen /HPF] Moderate /HPF *ABN* (11/17/17 12:22 AM) UA Mucus [None Seen /LPF] Few /LPF *NA* (11/17/17 12:22 AM) HEMATOLOGY Most recent to oldest [Reference Range]: 1 WBC [3.7-10.4 K/CMM] 7.3 K/CMM (11/16/17 11:23 PM) RBC [4.20-5.40 M/CMM] 4.56 M/CMM (11/16/17 11:23 PM) Hgb [12.0-16.0 g/dL] 14.0 g/dL (11/16/17 11:23 PM) Hct [36.0-48.0 %] 39.7 % (11/16/17 11:23 PM) MCV [80.0-98.0 fL] 87.1 fL (11/16/17 11:23 PM) MCH [27.0-31.0 pg] 30.7 pg (11/16/17 11:23 PM) MCHC [32.0-36.0 g/dL] 35.2 g/dL (11/16/17 11:23 PM) RDW [11.5-14.5 %] 13.0 % (11/16/17 11:23 PM) MPV [7.4-10.4 fL] 8.4 fL (11/16/17 11:23 PM) Platelet [133-450 K/CMM] 263 K/CMM (11/16/17 11:23 PM) Segs [45.0-75.0 %] 58.7 % (11/16/17 11:23 PM) Lymphocytes [20.0-40.0 %] 31.5 % (11/16/17 11:23 PM) Monocytes [2.0-12.0 %] 6.7 % (11/16/17 11:23 PM) Eosinophils [0.0-4.0 %] 2.5 % (11/16/17 11:23 PM) Basophils [0.0-1.0 %] 0.6 % (11/16/17 11:23 PM) Neutrophils # [1.5-8.1 K/CMM] 4.3 K/CMM (11/16/17 11:23 PM) Lymphocytes # [1.0-5.5 K/CMM] 2.3 K/CMM (11/16/17 11:23 PM) Monocytes # [0.0-0.8 K/CMM] 0.5 K/CMM (11/16/17 11:23 PM) Eosinophils # [0.0-0.5 K/CMM] 0.2 K/CMM (11/16/17 11:23 PM) D-Dimer 0.27 ug/mL FEU *NA* (11/16/17 11:23 PM) Immunizations No data available for this [...]
--- OUTSIDE RECORDS SUMMARY | 2018-07-12 01:27 | XMS REPORT | Summary of Care ---
:1975 Author Organization [facility] Address [address] [place] [phone] Encounter HQ Chante(FIN) [id number] Date(s): 10/31/17 - 10/31/[address] [phone] Encounter Diagnosis Confusion (Discharge Diagnosis) - 10/31/17 Disorientation, unspecified (Final) - 11/06/17 Chest pain, unspecified (Final) - Weakness (Final) - Altered mental status, unspecified (Final) - Hyperlipidemia, unspecified (Final) - Discharge Disposition: Home or Self Care Attending Physician: Lalita Machado MD Vital Signs Most recent to oldest [Reference 1 2 3 Range]: Height 162.56 cm (10/31/17 3:04 PM) Temperature Oral [96.4-99.1 DegF] 98.4 DegF 98.8 DegF 99.6 DegF (10/31/17 6:23 PM) (10/31/17 4:50 PM) *HI* (10/31/17 3:04 PM) Blood Pressure [90-140/60-90 mmHg] 120/71 mmHg 124/87 mmHg 119/75 mmHg (10/31/17 6:23 PM) (10/31/17 4:50 PM) (10/31/17 4:20 PM) Respiratory Rate [14-20 BRMIN] 15 BRMIN 17 BRMIN 19 BRMIN (10/31/17 6:23 PM) (10/31/17 4:50 PM) (10/31/17 4:20 PM) Peripheral Pulse Rate [60-100 bpm] 93 bpm (10/31/17 3:04 PM) Weight 72 kg (10/31/17 3:04 PM) Body Mass Index 27.25 m2 (10/31/17 3:04 PM) Problem List Condition Effective Dates Status Health Status Informant Anemia(Confirmed) Active Dysmenorrhea(Confirmed) Active Hyperlipidemia(Confirmed) Resolved Menorrhagia(Confirmed) Active None(Confirmed) Resolved Uterine fibroid(Confirmed) Active Allergies, Adverse Reactions, Alerts Substance Reaction Severity Status Vicodin pass out Active Medications Saline Flush 0.9% 10 mL, Route: IVP, Drug Form: INJ, Dosing Weight 77.273, kg, PRN, PRN Line Flush , Start date: 10/31/17 15:09:00 CDT, Duration: 30 day, Stop date: 11/30/17 15:08 :00 CDT Notes: (Same as: BD Posiflush) Start Date: 10/31/17 Stop Date: 10/31/17 Status: Discontinued Results ELECTROLYTES Most recent to oldest [Reference Range]: 1 Sodium Lvl [135-145 mEq/L] 139 mEq/L (10/31/17 3:27 PM) Potassium Lvl [3.5-5.1 mEq/L] 3.4 mEq/L *LOW* (10/31/17 3:27 PM) Chloride Lvl [95-109 mEq/L] 102 mEq/L (10/31/17 3:27 PM) CO2 [24-32 mEq/L] 28 mEq/L (10/31/17 3:27 PM) AGAP [10.0-20.0 mEq/L] 12.4 mEq/L (10/31/17 3:27 PM) CHEM PANEL Most recent to oldest [Reference Range]: 1 Creatinine Lvl [0.50-1.40 mg/dL] 0.96 mg/dL (10/31/17 3:27 PM) eGFR 84 mL/min/1.73m2 1 *NA* (10/31/17 3:27 PM) BUN [7-22 mg/dL] 9 mg/dL (10/31/17 3:27 PM) Glucose Lvl [70-99 mg/dL] 96 mg/dL (10/31/17 3:27 PM) Calcium Lvl [8.5-10.5 mg/dL] 10.3 mg/dL (10/31/17 3:27 PM) 1Result Comment: The eGFR is calculated [...] [Reference Range]: 1 Total CK [12-191 unit/L] 110 unit/L (10/31/17 3:27 PM) Troponin-I [0.00-0.40 ng/mL] <0.02 ng/mL (10/31/17 3:27 PM) DRUG SCREEN Most recent to oldest [Reference Range]: 1 U Amph Scr [Negative] Negative *NA* (10/31/17 5:01 PM) U Indu Scr [Negative] Negative *NA* (10/31/17 5:01 PM) U Benzodiaz Scr [Negative] Negative *NA* (10/31/17 5:01 PM) U Cannab Scr [Negative] Negative *NA* (10/31/17 5:01 PM) U Cocaine Scr [Negative] Negative *NA* (10/31/17 5:01 PM) U Opiate Scr [Negative] Negative *NA* (10/31/17 5:01 PM) U Phencyclidine Scr [Negative] Negative *NA* (10/31/17 5:01 PM) UDS Note See Note *NA* (10/31/17 5:01 PM) TOXICOLOGY Most recent to oldest [Reference Range]: 1 Etoh (%) <.003 % *NA* (10/31/17 3:27 PM) Ethanol Lvl <3 mg/dL *NA* (10/31/17 3:27 PM) ENDOCRINOLOGY Most recent to oldest [Reference Range]: 1 S Preg [Negative] Negative *NA* (10/31/17 3:27 PM) URINE AND STOOL Most recent to oldest [Reference Range]: 1 UA Turbidity [Clear] Slight *ABN* (10/31/17 5:01 PM) UA Color [Yellow] Yellow *NA* (10/31/17 5:01 PM) UA pH [5.0-8.0] 6.0 (10/31/17 5:01 PM) UA Spec Grav [<=1.030] 1.014 (10/31/17 5:01 PM) UA Glucose [Negative mg/dL] Negative mg/dL *NA* (10/31/17 5:01 PM) UA Blood [Negative] Negative (10/31/17 5:01 PM) UA Ketones [Negative mg/dL] 20 mg/dL *ABN* (10/31/17 5:01 PM) UA Protein [Negative mg/dL] Negative mg/dL (10/31/17 5:01 PM) UA Urobilinogen [0.1-1.0 mg/dL] 4.0 mg/dL *HI* (10/31/17 5:01 PM) UA Bili [Negative] Negative *NA* (10/31/17 5:01 PM) UA Leuk Est [Negative] Negative (10/31/17 5:01 PM) UA Nitrite [Negative] Negative (10/31/17 5:01 PM) UA WBC [0-5 /HPF] 7 /HPF *HI* (10/31/17 5:01 PM) UA RBC [0-2 /HPF] 3 /HPF *HI* (10/31/17 5:01 PM) UA Bacteria [None Seen /HPF] Moderate /HPF *ABN* (10/31/17 5:01 PM) UA Sq Epi [Few /LPF] Few /LPF *NA* (10/31/17 5:01 PM) UA CaOx Judy [None Seen /HPF] Moderate /HPF *ABN* (10/31/17 5:01 PM) UA Mucus [None Seen /LPF] Few /LPF *NA* (10/31/17 5:01 PM) HEMATOLOGY Most recent to oldest [Reference Range]: 1 WBC [3.7-10.4 K/CMM] 9.4 K/CMM (10/31/17 3:27 PM) RBC [4.20-5.40 M/CMM] 4.35 M/CMM (10/31/17 3:27 PM) Hgb [12.0-16.0 g/dL] 13.5 g/dL (10/31/17 3:27 PM) Hct [36.0-48.0 %] 38.8 % (10/31/17 3:27 PM) MCV [80.0-98.0 fL] 89.4 fL (10/31/17 3:27 PM) MCH [27.0-31.0 pg] 31.0 pg (10/31/17 3:27 PM) MCHC [32.0-36.0 g/dL] 34.7 g/dL (10/31/17 3:27 PM) RDW [11.5-14.5 %] 13.4 % (10/31/17 3:27 PM) MPV [7.4-10.4 fL] 8.2 fL (10/31/17 3:27 PM) Platelet [133-450 K/CMM] 238 K/CMM (10/31/17 3:27 PM) Segs [45.0-75.0 %] 70.6 % (10/31/17 3:27 PM) Lymphocytes [20.0-40.0 %] 18.7 % *LOW* (10/31/17 3:27 PM) Monocytes [2.0-12.0 %] 9.1 % (10/31/17 3:27 PM) Eosinophils [0.0-4.0 %] 1.3 % (10/31/17 3:27 PM) Basophils [0.0-1.0 %] 0.3 % (10/31/17 3:27 PM) Neutrophils # [1.5-8.1 K/CMM] 6.6 K/CMM (10/31/17 3:27 PM) Lymphocytes # [1.0-5.5 K/CMM] 1.8 K/CMM (10/31/17 3:27 PM) Monocytes # [0.0-0.8 K/CMM] 0.9 K/CMM *HI* (10/31/17 3:27 PM) Eosinophils # [0.0-0.5 K/CMM] 0.1 K/CMM (10/31/17 3:27 PM) PT [12.0-14.7 seconds] 15.7 seconds *HI* (10/31/17 3:27 PM) INR [0.85-1.17] 1.24 *HI* (10/31/17 3:27 PM) PTT [22.9-35.8 seconds] 31.0 seconds (10/31/17 3:27 PM) Microbiology Reports TEST:Culture: Urine STATUS:Auth (Verified) BODY SITE: SOURCE:Urine, Clean Catch COLLECTED DATE/TIME:10/31/17 5:01 PMFINAL REPORT50,000 - 100,000 CFU/mL Skin Liudmila Immunizations No data available for this section [...] entered on: 04/10/18 1no Assessment and Plan Extracted from: Title: Teleneurology Consultation Author: Kavitha Sauer MD Date : 10/31/17 TELEMEDICINE NEUROLOGY - CONSULTATION Date of Consult: 10/31/17 CC: staring episode HISTORY OF PRESENT ILLNESS: 42 yo depression anemia and HL with intermittent confusion starting around 14: 00 per family. C/o chest pain on my evaluation. No headache. Diffuse weakness slow walking. Earlier in the day she states sh e had lightheadedness and felt her body was swaying uncontrollably. No neck or back pain. killed a year ago in front of her. The patient DENIES having had any headache, nausea, vomiting, diplopia or vertigo. Pt also DENIES having neither any ataxia, weakness at arms or legs nor any change in sensation; describes having NO fac ial deficits, language difficulties nor reading/writing difficulties. PAST MEDICAL HISTORY: as above PAST SURGICAL HISTORY: hysterectomy and FAMILY MEDICAL HISTORY: no known neurologic issues SOCIAL HISTORY: no tobacco no illicit drugs no heavy alcohol MEDS: none ALLERGIES: vicodin PHYSICAL EXAM: Vitals and Temp: Vitals Tmp(F) Pulse BP RR SpO2 FIO2 08/08 15:04 99.6 93 113/81 18 97 --- 24 Hr Tmax: 99.6F (37.56c) at 10/31 15:04 Vital Signs are the last 5 in the past 48 hours. Became very tearful during examination. AAO x2, speech is fluent, follows commands EOMI, VFFTC, Face symmetric, sensation intact, no dysarthria Motor - b/l UE no drift on best effort, b/l LE some antigravity on best effort Sensation- intact to light touch throughout Coordination: Normal FTN and HTS, no ataxia noted NIH Stroke Scale (NIHSS) 0 1a. Level of Consciousness; 0-alert 1-drowsy 2-stupor 2 1b. LOC Questions month and age; 0-both 1-one 2-neither 0 1c. 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 Best Gaze; 0-nl 1-partial 2-forced gaze 0 3. Visual Conner; 0-No visual loss. 1-Partial hemianopia 2-Complete 3-Bilateral 0 4. Facial Palsy; 0-none 1-minor 2-partial 3-complete 0 5. Motor - R arm; 0-No drift 1-Drift 2-Some antigravity 3-No antigravity 4- No movement 2 6. Motor - R leg; 0-No drift 1-Drift 2-Some antigravity 3-No antigravity 4- No movement 0 7. Motor - L arm; 0-No drift 1-Drift 2-Some antigravity 3-No antigravity 4- No movement 2 8. Motor - L leg; 0-No drift 1-Drift 2-Some antigravity 3-No antigravity 4- No movement 0 9. Limb Ataxia; 0 absent 1 - 1limb 2 - 2 limbs 0 10. Sensory; 0-nl 1-partial loss 2-dense loss 0 11. Best Language; 0-nl 1-mild/mod 2-severe 3-mute 0 12. Dysarthria; 0-nl 1-mild/mod 2-severe x-untestable 0 13. Extinction and Inattention (formerly Neglect); 0-none 1-partial 2- complete TOTAL SCORE 6 Pre-morbid mRS 0 LABS: normal CBC DIAGNOSTIC TESTS: CT Head: no acute findings ASSESSMENT: 42 year old HL and anemia and depression here with altered mental status, poor effort on exam but may have some embellished b/l LE weakness. My impression is that she is depressed however if she does no t improve in LE weakness consider MRI T and C spine with and without contrast and PT/OT. No tPA as not a stroke. Time on camera: 15:22 PLAN: -Agree with toxic/metabolic workup -Chest pain evaluation and management as per ED/primary team -If she does not improve LE weakness then consider MRI C and T spine with and without contrast but ischemic or demyelinating process and trauma are low in the differential as well given acuity and lack of pain -IF she does not improve LE weakness then she will need OT/OT evaluation Discussed above with patient, primary nurse and primary physician. Will continue to follow along as needed please feel free to call with any interim questions. Kavitha Sauer MD [facility], Neurology Call center [phone]
--- OUTSIDE RECORDS SUMMARY | 2018-07-12 01:27 | XMS REPORT | CCD ---
:1975 Author Organization [facility] Care Team Providers Name Role Phone Scott [...] values reflect the clinical guidelines of the [place] [employer].HEMATOLOGY Most recent to oldest [Reference [...]
--- OUTSIDE RECORDS SUMMARY | 2018-07-12 01:28 | XMS REPORT | CCD ---
:1975 Author Organization [facility] Care Team Providers Name Role Phone Trevor Mccnan Consulting Provider Allergies, Adverse Reactions, Alerts Substance [...]
--- OUTSIDE RECORDS SUMMARY | 2018-07-12 01:29 | XMS REPORT ---
:1975 Author Organization [facility] Address [address] [place] [address] Care Team Providers Name Role Phone Unavailable Unavailable Unavailable Problems This patient has no known problems. Allergies, Adverse Reactions, Alerts This patient has no known allergies or adverse reactions. Medications This patient has no known medications. Encounters Start End Encounter Admission Attending Care Care Encounter Date/Time Date/Time Type Type Clinicians Facility Department ID 2017-11-16 2017-11-16 Emergency E [id number] 21:34:00 21:34:00
[2018-07-12] MEDS ORDERED: ONDANSETRON 4 MG/2 ML VIAL ONE (01:56)
[2018-07-12] MEDS ORDERED: KETOROLAC 30 MG/ML INJ ONE (01:56)
[2018-07-12] MEDS ORDERED: NA CHLORIDE 0.9% 1,000 ML ONE (01:57)
[2018-07-12 02:08] LABS: Absolute Monocytes 0.4 K/uL (0.1-1.3); Absolute Neutrophil 7.7 K/uL (1.8-8.0); Basophils % 0.3 % (0-1.3); Eosinophils % 0.8 % (0-4.4); Hematocrit 45.1 % (36.0-45.0); Lymphocytes % 19.5 % (15.3-44.8); MPV 8.6 fL (7.6-11.3); Monocytes % 4.1 % (3.3-12.3); RBC Red Blood Cell Count 5.02 M/uL (3.86-4.86)
[2018-07-12 02:35] LABS: Albumin 3.8 g/dL (3.4-5.0); Bilirubin Total 0.3 mg/dL (0.2-1.0); Protein, Total 9.2 g/dL (6.4-8.2)
[2018-07-12] MEDS ORDERED: LOPERAMIDE HCL 2 MG CAPSULE ONE (03:57)
--- NOTE | 2018-07-12 04:59 | ER ---
Nurse's Notes [facility] Name: Roxana Sanchez Age: 43 yrs Sex: Female : 1975 Arrival Date: 07/12/2018 Time: 01:25 Bed 18 [facility] MD: Diagnosis: Nausea with vomiting, unspecified Presentation: 07/12 01:37 Presenting complaint: Patient states: "I have been throwing up and having diarrhea and jd3 I also had an anxiety attack started about 30 min ago.". Transition of care: patient was not received from another setting of care. Onset of symptoms was July 12, 2018. Risk Assessment: Do you want to hurt yourself or someone else? Patient reports no desire to harm self or others. Initial Sepsis Screen: Does the patient meet any 2 criteria? No. Patient's initial sepsis screen is negative. Does the patient have a suspected source of infection? No. Patient's initial sepsis screen is negative. Care prior to arrival: None. 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 - Social history:: Smoking status: Patient/guardian denies using tobacco. - Ebola Screening: : Patient negative for fever greater than or equal to 101.5 degrees Fahrenheit, and additional compatible Ebola Virus Disease symptoms. Screenin:11 Abuse screen: Denies threats or abuse. Nutritional screening: No deficits noted. jd3 Tuberculosis screening: No symptoms or risk factors identified. Fall Risk IV access (20 points). Ambulatory Aid- None/Bed Rest/Nurse Assist (0 pts). Gait- Weak (10 pts.). Mental Status- Oriented to own ability (0 pts). Total Markham Fall Scale indicates Low Risk Score (25-44 pts). Fall prevention measures have been instituted. Side Rails Up X 2 Placed close to Nursing Station Frequent Obs/Assesments occuring Family Present and informed to notify staff if they need to leave bedside. Assessment: 02:09 General: Appears in no apparent distress. uncomfortable, Behavior is cooperative, jd3 appropriate for age, anxious. Pain: Complains of pain in abdomen Quality of pain is described as aching. Neuro: Level of Consciousness is awake, alert, obeys commands, Oriented to person, place, time, situation, Appropriate for age. Cardiovascular: Capillary refill < 3 seconds Patient's skin is warm and dry. Respiratory: Airway is patent Respiratory effort is even, unlabored, Respiratory pattern is regular, symmetrical. GI: Abdomen is round non-distended, Abd is soft and non tender X 4 quads. Reports diarrhea, nausea, vomiting. : No signs and/or symptoms were reported regarding the genitourinary system. EENT: No signs and/or symptoms were reported regarding the EENT system. Derm: Skin is intact, Skin is dry, Skin is normal, Skin temperature is warm. Musculoskeletal: Circulation, motion, and sensation intact. Range of motion: intact in all extremities. 03:03 Reassessment: Patient appears in no apparent distress at this time. Patient and/or jd3 family updated on plan of care and expected duration. Pain level reassessed. Patient is alert, oriented x 3, equal unlabored respirations, skin warm/dry/pink. Patient states feeling better. 04:42 Reassessment: Patient appears in no apparent distress at this time. Patient and/or jd3 family updated on plan of care and expected duration. Pain level reassessed. Patient is alert, oriented x 3, equal unlabored respirations, skin warm/dry/pink. pt resting in bed with eyes closed, even and unlabored respirations. family at bedside. 05:09 Reassessment: Patient appears in no apparent distress at this time. Patient and/or jd3 family updated on plan of care and expected duration. Pain level reassessed. Patient is alert, oriented x 3, equal unlabored respirations, skin warm/dry/pink. Vital Signs: 01:41 BP 108 / 56; Pulse 97; Resp 18 S; Temp 98.9(O); Pulse Ox 98% on R/A; Weight 78.93 kg jd3 (R); Height 5 ft. 4 in. (162.56 cm) (R); Pain 10/10; 03:29 BP 92 / 67; Pulse 66; Resp 17 S; Pulse Ox 100% on R/A; Pain 0/10; jd3 05:09 BP 98 / 59; Pulse 72; Resp 17 S; Pulse Ox 100% on R/A; jd3 01:41 Body Mass Index 29.87 (78.93 kg, 162.56 cm) jd3 ED Course: 01:25 Patient arrived in ED. am2 01:25 Geovanny Busch MD is Attending Physician. ps1 01:36 Tremayne Louie RN is Primary Nurse. jd3 01:39 Triage completed. jd3 01:55 Inserted saline lock: 20 gauge in left forearm, using aseptic technique. Blood jd3 collected. 02:08 Arm band placed on. jd3 02:10 Assisted to bedside commode. Cleaned of incontinence. jd3 02:13 Patient has correct armband on for positive identification. Placed in gown. Bed in low jd3 position. Call light in reach. Side rails up X2. Adult w/ patient. 05:10 No provider procedures requiring assistance completed. IV discontinued, intact, jd3 bleeding controlled, No redness/swelling at site. Pressure dressing applied. Administered Medications: 01:55 Drug: NS 0.9% 1000 ml Route: IV; Rate: 1 bolus; Site: left forearm; jd3 05:11 Follow up: Response: No adverse reaction; IV Status: Completed infusion; IV Intake: jd3 1000ml 02:08 Drug: Zofran 4 mg Route: IVP; Site: left forearm; jd3 03:48 Follow up: Response: No adverse reaction jd3 02:08 Drug: TORadol 30 mg Route: IVP; Site: left forearm; jd3 03:48 Follow up: Response: No adverse reaction jd3 03:48 Drug: Imodium A-D 2 mg Route: PO; jd3 05:11 Follow up: Response: No adverse reaction jd3 Intake: 05:11 IV: 1000ml; Total: 1000ml. jd3 Outcome: 04:58 Discharge ordered by . ps1 05:10 Discharged to home via wheelchair, with family. jd3 05:10 Condition: stable 05:10 Discharge instructions given to patient, family, Instructed on discharge instructions, follow up and referral plans. medication usage, Demonstrated understanding of instructions, follow-up care, medications, Prescriptions given X 1. 05:11 Patient left the ED. jd3 Signatures: Kavitha Neal am2 Tremayne Louie RN RN jd3 Geovanny Busch MD MD ps1 Corrections: (The following items were deleted from the chart) 03:34 03:03 Reassessment: Patient appears in no apparent distress at this time. Patient jd3 and/or family updated on plan of care and expected duration. Pain level reassessed. Patient is alert, oriented x 3, equal unlabored respirations, skin warm/dry/pink. Patient states feeling better. jd3
--- NOTE | 2018-07-12 04:59 | EDPHYS ---
Physician Documentation [facility] Name: Roxana Sanchez Age: 43 yrs Sex: Female : 1975 Arrival Date: 07/12/2018 Time: 01:25 Bed 18 Private MD: ED Physician Geovanny Busch HPI: 07/12 01:38 This 43 yrs old Black Female presents to ER via Unassigned with complaints of Vomiting, ps1 General Weakness. 01:38 patient presenting with nausea and vomiting for 3 hours. Patient recently treated for ps1 UTI with bactrim. Unable to take medication today 2/2 nausea. No abd pain. . 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 - Social history:: Smoking status: Patient/guardian denies using tobacco. - Ebola Screening: : Patient negative for fever greater than or equal to 101.5 degrees Fahrenheit, and additional compatible Ebola Virus Disease symptoms. ROS: 01:38 Constitutional: Negative for fever, chills, and weight loss, Eyes: Negative for injury, ps1 pain, redness, and discharge, Cardiovascular: Negative for chest pain, palpitations, and edema, Respiratory: Negative for shortness of breath, cough, wheezing, and pleuritic chest pain, MS/Extremity: Negative for injury and deformity, Skin: Negative for injury, rash, and discoloration, Neuro: Negative for headache, weakness, numbness, tingling, and seizure. 01:38 Abdomen/GI: Positive for nausea and vomiting. Exam: 01:38 Constitutional: This is a well developed, well nourished patient who is awake, alert, ps1 and in no acute distress. Head/Face: Normocephalic, atraumatic. Eyes: Pupils equal round and reactive to light, extra-ocular motions intact. Lids and lashes normal. Conjunctiva and sclera are non-icteric and not injected. Chest/axilla: Normal chest wall appearance and motion. Nontender with no deformity. No lesions are appreciated. Cardiovascular: Regular rate and rhythm. No gallops, murmurs, or rubs. Normal PMI, no JVD. No pulse deficits. Respiratory: Lungs have equal breath sounds bilaterally, clear to auscultation and percussion. No rales, rhonchi or wheezes noted. No increased work of breathing, no retractions or nasal flaring. Abdomen/GI: Soft, non-tender, with normal bowel sounds. No distension or tympany. No guarding or rebound. No evidence of tenderness throughout. Skin: Warm, dry with normal turgor. Normal color with no rashes, no lesions, and no evidence of cellulitis. MS/ Extremity: Pulses equal, no cyanosis. Neurovascular intact. Full, normal range of motion. Neuro: Awake and alert, GCS 15, oriented to person, place, time, and situation. Cranial nerves II-XII grossly intact. Sensory grossly intact. Psych: Awake, alert, with orientation to person, place and time. Behavior, mood, and affect are within normal limits. Vital Signs: 01:41 BP 108 / 56; Pulse 97; Resp 18 S; Temp 98.9(O); Pulse Ox 98% on R/A; Weight 78.93 kg jd3 (R); Height 5 ft. 4 in. (162.56 cm) (R); Pain 10/10; 03:29 BP 92 / 67; Pulse 66; Resp 17 S; Pulse Ox 100% on R/A; Pain 0/10; jd3 05:09 BP 98 / 59; Pulse 72; Resp 17 S; Pulse Ox 100% on R/A; jd3 01:41 Body Mass Index 29.87 (78.93 kg, 162.56 cm) jd3 MDM: 02:00 Patient medically screened. ps1 04:57 Data reviewed: vital signs, nurses notes, lab test result(s), and as a result, I will ps1 discharge patient. ED course: patient with known UTI on bactrim. Nausea has remitted and now resting comfortably, feels good to go. . 07/12 01:37 Order name: CBC with Diff; Complete Time: 02:43 ps1 07/12 01:37 Order name: Lipase; Complete Time: 02:43 ps1 07/12 01:37 Order name: CMP; Complete Time: 02:43 ps1 07/12 01:37 Order name: IV Saline Lock; Complete Time: 02:07 ps1 07/12 01:37 Order name: Labs collected and sent; Complete Time: 02:07 ps1 Administered Medications: 01:55 Drug: NS 0.9% 1000 ml Route: IV; Rate: 1 bolus; Site: left forearm; jd3 05:11 Follow up: Response: No adverse reaction; IV Status: Completed infusion; IV Intake: jd3 1000ml 02:08 Drug: Zofran 4 mg Route: IVP; Site: left forearm; jd3 03:48 Follow up: Response: No adverse reaction jd3 02:08 Drug: TORadol 30 mg Route: IVP; Site: left forearm; jd3 03:48 Follow up: Response: No adverse reaction jd3 03:48 Drug: Imodium A-D 2 mg Route: PO; jd3 05:11 Follow up: Response: No adverse reaction jd3 Disposition: 07/12/18 04:58 Discharged to Home. Impression: Nausea with vomiting, unspecified. - Condition is Stable. - Discharge Instructions: Nausea and Vomiting, Adult. - Prescriptions for Zofran 4 mg Oral Tablet - take 1 tablet by ORAL route every 12 hours As needed; 20 tablet. - Medication Reconciliation Form, Thank You Letter, Antibiotic Education, Prescription Opioid Use form. - Follow up: Private Physician; When: As needed; Reason: Recheck today's complaints, Continuance of care, Re-evaluation by your physician. Follow up: Emergency Department; When: As needed; Reason: Worsening of condition. - Problem is new. - Symptoms have improved. Signatures: Dispatcher MedHo Tremayne Herbert RN RN [email or web address] Geovanny Busch MD MD ps1 Corrections: (The following items were deleted from the chart) 05:11 04:58 07/12/2018 04:58 Discharged to Home. Impression: Nausea with vomiting, jd3 unspecified. Condition is Stable. Forms are Medication Reconciliation Form, Thank You Letter, Antibiotic Education, Prescription Opioid Use. Follow up: Private Physician; When: As needed; Reason: Recheck today's complaints, Continuance of care, Re-evaluation by your physician. Follow up: Emergency Department; When: As needed; Reason: Worsening of condition. Problem is new. Symptoms have improved. ps1
== END 2018-07-12 05:11 | disposition home or self-care (01) ==
LOC: ER 01:24
DX: R11.2 Nausea with vomiting, unspecified (principal); F41.9 Anxiety disorder, unspecified; F32.9 Major depressive disorder, single episode, unspecified; Z88.5 Allergy status to narcotic agent
CPT/HCPCS: 36415; 80053; 83690; 85025; 96361; 96374; 96375; 99284; J2405; J7030

== ENCOUNTER 2018-09-24 17:48 | Emergency (ER) | payer SELFPAY ==
--- OUTSIDE RECORDS SUMMARY | 2018-09-24 18:05 | XMS REPORT | Continuity of Care Document ---
:1975 Author Organization [facility] Information [place] Care Team Providers Name Role Phone [facility] Information Exchange Unavailable Unavailable Problems Problem Status Onset Classification Date Comments Source Date Reported PANIC ATTACK Active 04/10/19 [facility] [place] HEART PROBLEMS Active 03/29/[address] Shortness of breath 11/24/19 06/06/2018 [facility] 18 Myalgia 11/18/19 06/06/2018 [facility] 18 SOB 11/18/19 06/06/2018 [facility] 18 SOB WEAK Active 11/17/19 [place] [id number] [address] Disorientation, 11/08/19 05/20/2018 [facility] unspecified 18 Gastro-esophageal 11/02/19 05/15/2018 reflux disease 18 [facility] without esophagitis Confusion 11/01/19 05/20/2018 [facility] 18 DIZZY/ WEAKNESS Active 11/01/19 [facility] 18 [place] GERD 10/27/19 05/15/2018 18 [facility] CHEST PAIN Active 10/26/19 18 [facility] Calculus of ureter 10/20/19 05/02/2018 [facility] 18 Ureterolithiasis 10/14/19 05/02/2018 [facility] 18 Renal colic 10/14/19 05/02/2018 [facility] 18 ABD PAIN AND BACKK Active 10/14/19 [facility] PAIN 18 [place] UTERINE Active 04/24/19 [place] FIBROIDS-D25.9/ [place] MENORRHAGIA-N92.0/ DYSMENORRHEA-N94 Discharge 03/17/20 03/20/2016 [facility] Diagnosis: Acute 16 URI Discharge 03/17/20 03/20/2016 [facility] Diagnosis: Acute 16 UTI FEVER Active 03/17/20 [facility] 16 [place] Discharge 08/03/19 08/06/2015 Diagnosis: Pain, 16 [place] arm, right ARM PAIN Active 08/03/19 16 [facility] SHORTNESS OF BREATH Active 04/07/19 [facility] CHEST PAIN, ANEMIA Active 11/06/19 15 [place] Discharge 11/04/19 11/06/2014 Diagnosis: 15 [facility] Microcytic anemia Discharge 11/04/19 11/06/2014 Diagnosis: Chest 15 [place] pain SOB Active 03/07/20 13 [facility] VOMITING Active 03/07/20 13 [facility] MOUTH PAIN Active 04/03/19 13 [place] Anemia Active Problem 06/06/2018 [facility], [place] Dysmenorrhea Active Problem 06/06/2018 [facility], [place] Hyperlipidemia Resolved Problem 06/06/2018 [facility], [place] Menorrhagia Active Problem 06/06/2018 [facility], [place] None Resolved Problem 06/06/2018 [facility], [place] Uterine fibroid Active Problem 06/06/2018 [facility] Chest pain, 05/20/2018 [facility] unspecified Weakness 06/06/2018 [facility] Altered mental 05/20/2018 [facility] status, unspecified Hyperlipidemia, 06/06/2018 unspecified [place],[facility] use of 05/15/2018 aspirin [facility] Unspecified renal 05/02/2018 [facility] colic Essential 05/02/2018 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 Medications Medication Details Route Status Patient Ordering Order Source Instructions Provider Date ibuprofen 800 mg 800 mg=1 No Longer oral tablet tab, PO, Active [address] [place] [address] Q8H, # 30 tab, 0 Refill(s) Sodium Chloride 1,000 mL, Inactive 0.9% (Bolus) IV 1000 ml/hr, 2017 [place] Infuse Over: 1 hr, Route: IV, 1,000, Drug form: INJ, ONCE, Priority: STAT, Dosing Weight 68.182 kg, Start date: 11/16/17 22:04:00 CDT, Stop date: 11/16/17 22:04:00 CDT Saline Flush 10 mL, No Longer 0.9% Route: IVP, Active 2017 [place] Drug Form: INJ, Dosing Weight 68.182, kg, PRN, PRN Line Flush, Start date: 11/16/17 22:01:00 CDT, Duration: 30 day, Stop date: 12/16/17 22:00:00 CDTNotes: (Same as: BD Posiflush) Saline Flush 10 mL, Inactive 0.9% Route: IVP, 2017 [place] Drug Form: INJ, Dosing Weight 77.273, kg, PRN, PRN Line Flush, Start date: 10/31/17 15:09:00 CDT, Duration: 30 day, Stop date: 11/30/17 15:08:00 CDTNotes: (Same as: BD Posiflush) Maalox Regular 1,500 mg, 3 Inactive Strength TAB tab, Route: 2017 [facility] CHEW, Drug Form: CHEWTAB, Dosing Weight 77.273, kg, Daily, Start date: 10/26/17 9:00:00 CDT, Duration: 30 day, Stop date: 11/24/17 9:00:00 CDTNotes: (Same As: Tumsami) Calcium Carbonate 500 at=553 mg elemental calcium Dose= mg calcium carbonate ( mg elemental calcium) Famotidine 40 MG 40 mg=1 tab, Active Oral Tablet PO, Daily, # 2018 [facility] [Pepcid] 30 tab, 0 Refill(s) Lidocaine 15 mL, Inactive Viscous 2% Route: PO, 2017 [facility] mucous membrane ONCE, Drug solution form: SOLN, Start date: 10/26/17 1:59:00 CDT, Stop date: 10/26/17 1:59:00 CDTNotes: (Same as: Xylocaine) Reglan 10 mg, 2 mL, Inactive Route: IVP, 2017 [facility] Drug form: INJ, ONCE, Dosing Weight 77.273, kg, Priority: STAT, Start date: 10/26/17 1:17:00 CDT, Stop date: 10/26/17 1:17:00 CDTNotes: (Same as: Reglan) Maalox Regular 1,500 mg, 3 Inactive Strength TAB tab, Route: 2017 [facility] CHEW, Drug Form: CHEWTAB, Dosing Weight 77.273, kg, ONCE, Start date: 10/26/17 1:12:00 CDT, Stop date: 10/26/17 1:12:00 CDTNotes: (Same As: Manasa) Calcium Carbonate 500 jg=254 mg elemental calcium Dose= mg calcium carbonate ( mg elemental calcium) Aspirin 324 mg, 4 No Longer tab, Route: Active 2017 [facility] ANIA, Drug form: CHEWTAB, ONCE, Dosing Weight 77.273, kg, Priority: STAT, Start date: 10/25/17 23:18:00 CDT, Stop date: 10/25/17 23:18:00 CDTNotes: Take with food. ketOROLAC 30 30 mg, Inactive mg/mL injectable Route: IVP, 2017 [place] solution Drug form: INJ, ONCE, Dosing Weight 76, kg, Priority: STAT, Start date: 10/13/17 12:11:00 CDT, Stop date: 10/13/17 12:11:00 CDT naproxen 500 mg 500 mg=1 No Longer oral tablet tab, PO, Active 2017 [place] Q12H, PRN Pain, X 10 day, # 20 tab, 0 Refill(s) Morphine 2 mg, 1 mL, Inactive Route: IVP, 2017 [place] Drug form: SOLN, ONCE, Dosing Weight 76, kg, Priority: STAT, Start date: 10/13/17 9:54:00 CDT, Stop date: 10/13/17 9:54:00 CDT Ondansetron 4 mg, 2 mL, Inactive Route: IVP2017 [place] Drug form: INJ, ONCE, Dosing Weight 76, kg, Priority: STAT, Start date: 10/13/17 9:54:00 CDT, Stop date: 10/13/17 9:54:00 CDTNotes: (Same as: Loni) MEDICATION WASTE Product Size: 4 mg Product Wasted: ___ mg Sodium Chloride 1,000 mL, Inactive 0.9% (Bolus) IV 1000 ml/hr, 2017 [place] Infuse Over: 1 hr, Route: IV, 1,000, Drug form: INJ, ONCE, Priority: STAT, Dosing Weight 76 kg, Start date: 10/13/17 9:54:00 CDT, Stop date: 10/13/17 9:54:00 CDT Saline Flush 10 mL, Inactive 0.9% Route: IVP2017 [place] Drug Form: INJ, Dosing Weight 76, kg, [...] Sugar tab, Route: Active 2016 [facility] CHEW, Drug form: CHEWTAB, TID, Dosing Weight 75, kg, Start date: 05/01/16 13:00:00 [employer]ARKING WORKER, Duration: 30 day, Stop date: 05/31/16 9:00:00 CSTNotes: (Same as: Mylicon) Ondansetron 4 mg, 2 mL, No Longer Sugar Route: IVP, Active 2016 [facility] Drug form: INJ, Q8H, Dosing Weight 75, kg, PRN Nausea & Vomiting, Start date: 05/01/16 10:57:00 PARKING WORKER, Duration: 30 day, Stop date: 05/31/16 10:56:00 CSTNotes: (Same as: Loni) MEDICATION WASTE Product Size: 4 mg Product Wasted: ___ mg Morphine 2 mg, 1 mL, No Longer Sugar Route: IVP, Active 2016 [facility] Drug form: INJ, Q4H, Dosing Weight 75, kg, PRN Pain Score 7-10, Start date: 05/01/16 10:57:00 PARKING WORKER, Duration: 30 day, Stop date: 05/31/16 10:56:00 CSTNotes: (Same as:MORPhine Sulfate) Docusate 100 mg, 1 No Longer [place] cap, Route: Active [place] PO, Drug form: CAP, BID, Dosing Weight 75, kg, PRN as needed for constipation , Start date: 05/01/16 10:57:00 PARKING WORKER, Duration: 30 day, Stop date: 05/31/16 10:56:00 CSTNotes: (Same as: Colace) (Do Not Crush) Diphenhydramine 25 mg, 1 No Longer Sugar cap, Route: Active [place] PO, Drug form: CAP, Bedtime, Dosing Weight 75, kg, PRN Insomnia, Start date: 05/01/16 10:57:00 PARKING WORKER, Duration: 30 day, Stop date: 05/31/16 10:56:00 CSTNotes: (Same as: Benadryl) Calcium Chloride 1,000 mL, No Longer Sugar 0.0014 MEQ/ML / Rate: 125 Active [place] Potassium ml/hr, Chloride 0.004 Infuse over: MEQ/ML / Sodium 8 hr, Route: Chloride 0.103 IV, Dosing MEQ/ML / Sodium Weight 75 Lactate 0.028 kg, Total MEQ/ML Volume: Injectable 1,000, Start Solution date: 05/01/16 10:57:00 PARKING WORKER, Duration: 30 day, Stop date: 05/31/16 10:56:00 [employer]ING WORK[employer] ondansetron Route: IV, Inactive [place] (ANES) Drug form: [place] INJ, ONCE, Stop date: 05/01/16 10:05:00 [employer] WORK[employer] glycopyrrolate Route: IV, Inactive [place] (ANES) Drug form: [place] INJ, ONCE, Stop date: 05/01/16 10:05:00 [employer]ING WORK[employer] neostigmine Route: IV, Inactive [place] (ANES) Drug form: [place] INJ, ONCE, Stop date: 05/01/16 10:05:00 [employer]ARKING WORKER ketOROLAC (ANES) IV, ONCE Inactive [place] Hydromorphone 0.5 mg, 0.25 Inactive Sugar mL, Route: [place] IVP, Drug form: INJ, Q5Min, Dosing Weight 75, kg, PRN Pain Score 7-10, Start date: 05/01/16 10:01:00 [employer]ARKING WORKER, Duration: 4 doses or times, Stop date: Limited # of timesNotes: Same as Dilaudid Flumazenil 0.2 mg, 2 Inactive [place] mL, Route: 2016 [facility] IVP, Drug form: INJ, PRN, Dosing Weight 75, kg, PRN Benzodiazepi ne Reversal, Initial dose, Start date: 05/01/16 10:01:00 [employer]ARKING WORKER, Duration: 30 day, Stop date: 05/31/16 10:00:00 CSTNotes: (Same as: Romazicon) Naloxone 0.4 mg, 1 Inactive [place] mL, Route: 2016 [facility] IVP, Drug form: INJ, Q2MIN, Dosing Weight 75, kg, PRN Narcotic Reversal, Start date: 05/01/16 10:01:00 PARKING WORKER, Duration: 8 doses or times, Stop date: Limited # of timesNotes: Same as Narcan Ondansetron 4 mg, 2 mL, Inactive Sugar Route: IVP2016 [facility] Drug form: INJ, ONCE, Dosing Weight 75, kg, PRN Nausea & Vomiting, Start date: 05/01/16 10:01:00 CSTNotes: (Same as: Loni) MEDICATION WASTE Product Size: 4 mg Product Wasted: ___ mg Morphine 2 mg, 1 mL, Inactive Sugar Route: IVP2016 [facility] Drug form: INJ, Q5Min, Dosing Weight 75, kg, PRN Pain Score 4-6, Start date: 05/01/16 10:01:00 PARKING WORKER, Duration: 5 doses or times, Stop date: Limited # of timesNotes: (Same as:MORPhine Sulfate) Acetaminophen 1,000 mg, Inactive Sugar Route: IVPB2016 [facility] Drug form: INJ, ONCE, Dosing Weight 74.091, kg, PRN Pain Score 1-3, Start date: 05/01/16 10:01:00 PARKING WORKER, Duration: 1 doses or times, Stop date: Limited # of times Ketorolac 30 mg, 1 mL, Inactive Sugar Route: IVP2016 [facility] Drug form: INJ, ONCE, Dosing Weight 75, kg, Start date: 05/01/16 10:01:00 PARKING WORKER, Duration: 1 doses or times, Stop date: 05/01/16 10:01:00 CSTNotes: (Same as:Toradol) IV bolus must be given >15 seconds. Give IM administrati on slowly and deeply into the muscle. Not for use > 4 days MEDICATION WASTE Product Size: 30 mg Product Wasted: ___ mg Calcium Chloride 1,000 mL, Inactive Sugar 0.0014 MEQ/ML / Rate: 125 2016 Pot[place] ml/hr, Chloride 0.004 Infuse over: MEQ/ML / Sodium 8 hr, Route: Chloride 0.103 IV, Dosing MEQ/ML / Sodium Weight 75 Lactate 0.028 kg, Total MEQ/ML Volume: Injectable 1,000, Start Solution date: 05/01/16 10:01:00 [employer]ARKING WORKER, Duration: 30 day, Stop date: 05/31/16 10:00:00 [employer]ARKING WORKER Labetalol 10 mg, 2 mL, Inactive Sugar Route: IVP, 2016 Drug form: INJ, Q5Min, Dosing Weight 75, kg, PRN Elevated BP, Start date: 05/01/16 10:01:00 [employer]ARKING WORKER, Duration: 5 doses or times, Stop date: Limited # of timesNotes: (Same as: Normodyne, Trandate) Push over 2 minutes Give bolus over 2-3 minutes. acetaminophen Route: IV, Inactive [place] (ANES) (ANES) Drug form: [place] INJ, Start date: 05/01/16 9:38:00 PARKING WORKER, Stop date: 05/01/16 10:38:00 [employer]ARKING WORKER hydromorphone Route: IV, Inactive [place] (ANES) Drug form: [place] INJ, ONCE, Stop date: 05/01/16 9:02:00 [employer]ARKING WORKER dexamethasone Route: IV, Inactive [place] (ANES) Drug form: [place] INJ, ONCE, Stop date: 05/01/16 8:37:00 PARKING WORKER fentaNYL (ANES) Route: IV, Inactive [place] Drug form: [place] INJ, ONCE, Stop date: 05/01/16 8:37:00 PARKING WORKER lidocaine (ANES) Route: IV, Inactive [place] Drug form: [place] INJ, ONCE, Stop date: 05/01/16 8:37:00 PARKING WORKER propofol (ANES) Route: IV, Inactive [place] Drug form: [place] INJ, ONCE, Stop date: 05/01/16 8:37:00 PARKING WORKER midazolam (ANES) Route: IV, Inactive [place] Drug form: [place] SOLN, ONCE, Stop date: 05/01/16 8:37:00 PARKING WORKER rocuronium Route: IV, Inactive [place] (ANES) Drug form: [place] INJ, ONCE, Stop date: 05/01/16 8:37:00 PARKING WORKER metoclopramide Route: IV, Inactive [place] (ANES) Drug form: [place] INJ, ONCE, Stop date: 05/01/16 8:37:00 PARKING WORKER famotidine Route: IV, Inactive [place] (ANES) Drug form: [place] INJ, ONCE, Stop date: 05/01/16 8:22:00 PARKING WORKER phenylephrine Route: IV, Inactive [place] (ANES) Drug form: [place] INJ, ONCE, Stop date: 05/01/16 8:22:00 PARKING WORKER ceFAZolin (ANES) Route: IV, Inactive [place] Drug form: [place] INJ, ONCE, Stop date: 05/01/16 8:11:00 PARKING WORKER LR 1000 mL INJ Route: IV, Inactive [place] (ANES) Total 2016 [place] Volume: 1,000, Start date: 05/01/16 7:35:00 PARKING WORKER, Stop date: 05/01/16 8:35:00 PARKING WORKER Calcium Chloride 1,000 mL, Inactive [place] 0.0014 MEQ/ML / Rate: 25 [place] Potassium ml/hr, Chloride 0.004 Infuse over: MEQ/ML / Sodium 40 hr, Chloride 0.103 Route: IV, MEQ/ML / Sodium Dosing Lactate 0.028 Weight MEQ/ML 74.091 kg, Injectable Total Solution Volume: 1,000, Start date: 05/01/16 6:57:00 PARKING WORKER, Duration: 30 day, Stop date: 05/31/16 6:56:00 PARKING WORKER ceFAZolin 2 gm, 100 Inactive [place] mL, Route: [place] IVPB, Drug form: INJ, ONCALL, Start date: 05/01/16 6:00:00 PARKING WORKER, Duration: 1 doses or times, Stop date: 05/01/16 23:00:00 CSTNotes: Same as: Ancef BD Normal Saline 10 mL, No Longer Sugar Flush Route: IV, Active 2016 [facility] Drug Form: INJ, PRN, PRN Line Flush, Start date: 05/01/16 6:00:00 PARKING WORKER, Duration: 30 day, Stop date: 05/31/16 5:59:00 CSTNotes: (Same as: BD Posiflush) Esomeprazole 20 20 mg=1 cap, Active [place] MG Enteric PO, Daily, 0 2016 [facility] Coated Capsule Refill(s) [Nexium] ferrous sulfate 325 mg=1 No Longer Sugar 325 mg oral tab, PO, Active 2016 [facility] enteric coated Daily, 0 tablet Refill(s) Sulfamethoxazole 1 tab, PO, Active 800 MG / BID, X 7 2015 [place] Trimethoprim 160 day, # 14 MG Oral Tablet tab, 0 [Bactrim] Refill(s) Motrin 800 mg, Inactive Route: PO, 2015 [place] Drug form: TAB, ONCE, Dosing Weight 72.727, kg, Priority: STAT, Start date: 03/17/16 16:27:00 PARKING WORKER, Stop date: 03/17/16 16:27:00 PARKING WORKER Sodium Chloride 1,000 mL, Inactive 0.154 MEQ/ML 2,000 ml/hr, 2015 [place] Injectable Infuse Over: Solution 30 minutes, Route: IV, ONCE, Priority: STAT, Dosing Weight 72.727 kg, Start date: 03/17/16 16:27:00 PARKING WORKER, Duration: 1 doses or times, Stop date: 03/17/16 16:27:00 PARKING WORKER Saline Flush 10 mL, Inactive 0.9% Route: IVP, 2015 [place] Drug Form: INJ, Dosing Weight 72.727, kg, PRN, PRN Line Flush, Start date: 03/17/16 16:27:00 PARKING WORKER, Duration: 30 day, Stop date: 04/16/16 16:26:00 CSTNotes: (Same as: BD Posiflush) Acetaminophen 1 tab, PO, Active 300 MG / Codeine Q6H, PRN 2015 [place] Phosphate 30 MG Pain, X 7 Oral Tablet day, # 28 [Tylenol with tab, 0 Codeine #3] Refill(s) Cyclobenzaprine 10 mg=1 tab, Active hydrochloride 10 PO, TID, PRN 2015 [facility] MG Oral Tablet for spasm, X [Flexeril] 10 day, # 30 tab, 0 Refill(s) acetaminophen-co 1 tab, Inactive deine #3 Route: PO, 2015 [facility] Drug Form: TAB, Dosing Weight 72.727, kg, ONCE, STAT, Start date: 08/03/15 10:03:00 CDT, Stop date: 08/03/15 10:03:00 CDTNotes: Do not exceed 4gm/day of acetaminophe n. (Same as: Tylenol with Codeine # 3) cyclobenzaprine 10 mg, 1 Inactive tab, Route: 2015 [facility] PO, Drug form: TAB, ONCE, Dosing Weight 72.727, kg, Priority: STAT, Start date: 08/03/15 10:03:00 CDT, Stop date: 08/03/15 10:03:00 CDTNotes: (Same As: Flexeril) Aspirin 81 MG 81 mg=1 tab, Active Enteric Coated PO, Daily, # 2016 [facility] Tablet 90 tab, 3 Refill(s), other Aspirin 325 MG 325 mg, 1 Inactive Enteric Coated tab, Route: 2015 [facility] Tablet PO, Drug form: ECTAB, Daily, Dosing Weight 80.455, kg, Start date: 04/08/15 9:00:00, Duration: 30 day, Stop date: 05/07/15 9:00:00Notes : (Do Not Crush) Do not crush or chew. Saline Flush 10 ml, No Longer 0.9% Route: IVP, Active 2015 [facility] Drug Form: INJ, Dosing Weight 80.455, kg, Q12H, Start date: 04/07/15 21:00:00, Duration: 30 day, Stop date: 05/07/15 9:00:00Notes : (Same as: BD Posiflush) Sodium Chloride 1,000 mL, No Longer 0.154 MEQ/ML Rate: 125 Active 2015 [facility] Injectable ml/hr, Solution Infuse over: 8 hr, Route: IV, Dosing Weight 80.455 kg, Total Volume: 1,000, Start date: 04/07/15 19:28:00, Duration: 30 day, Stop date: 05/07/15 19:27:00 metoprolol 25 mg, 1 No Longer tartrate tab, Route: Active 2015 [facility] PO, Drug form: TAB, Q6H, Dosing Weight 80.455, kg, Start date: 04/07/15 18:00:00, Duration: 30 day, Stop date: 05/07/15 12:00:00Note s: (Same as: Lopressor) Saline Flush 10 ml, No Longer 0.9% Route: IVP, Active 2015 [facility] Drug Form: INJ, Dosing Weight 80.455, kg, PRN, PRN Line Flush, Start date: 04/07/15 14:15:00, Duration: 30 day, Stop date: 05/07/15 14:14:00Note s: (Same as: BD Posiflush) Nitroglycerin 0.4 mg, 1 No Longer tab, Route: Active 2015 [facility] SL, Drug form: TAB, Q5Min, Dosing Weight 80.455, kg, PRN Chest Pain, Start date: 04/07/15 14:15:00, Duration: 3 doses or times, Stop date: Limited # of timesNotes: (Same as:Nitroquic k, Nitrostat) "Do Not Crush" Sublingual tablet Sodium Chloride 1,000 mL, Inactive 0.154 MEQ/ML 1,000 ml/hr, 2015 [facility] Injectable Infuse Over: Solution 1 hr, Route: IV, ONCE, Priority: STAT, Dosing Weight 80.455 kg, Start date: 04/07/15 9:37:00, Duration: 1 doses or times, Stop date: 04/07/15 9:37:00 Nitroglycerin 0.4 mg, 1 Inactive 0.4 MG tab, Route: 2015 [facility] Sublingual SL, Drug Tablet form: TAB, Q5Min, Dosing Weight 80.455, kg, Start date: 04/07/15 7:25:00, Duration: 3 doses or times, Stop date: 04/07/15 7:35:00Notes : (Same as:Nitroquic k, Nitrostat) "Do Not Crush" Sublingual tablet Aspirin 324 mg, 4 Inactive tab, Route: 2015 [facility] PO, Drug form: CHEWTAB, ONCE, Dosing Weight 80.455, kg, Priority: STAT, Start date: 04/07/15 7:23:00, Stop date: 04/07/15 7:23:00Notes : Take with food. Saline Flush 10 mL, No Longer 0.9% Route: IVP, Active 2015 [facility] Drug Form: INJ, Dosing Weight 80.455, kg, PRN, PRN Line Flush, Start date: 04/07/15 7:23:00, Duration: 30 day, Stop date: 05/07/15 7:22:00Notes : (Same as: BD Posiflush) Miralax 17 gm, 1 No Longer pkt, Route: Active 2014 [facility] PO, Drug form: PWDR, Daily, Dosing Weight 71.364, kg, Priority: NOW, Start date: 11/06/14 18:38:00, Duration: 30 day, Stop date: 12/06/14 9:00:00Notes : Dissolve in 8 oz of water or juice. (Same as: Miralax) Tylenol 650 mg, 2 No Longer tab, Route: Active 2014 [facility] PO, Drug form: TAB, Q6H, Dosing Weight 71.364, kg, PRN Pain Score 1-3, Start date: 11/06/14 18:35:00, Duration: 30 day, Stop date: 12/06/14 18:34:00Note s: Do not exceed 4 gm/day. (Same as: Tylenol) Sulfamethoxazole 1 tab, PO, Active 800 MG / BID, X 5 2014 [facility] Trimethoprim 160 day, # 10 MG Oral Tablet tab, 0 [Bactrim] Refill(s) ferrous sulfate 325 mg, PO, Active 325 MG Oral TID, # 90 2014 [facility] Tablet tab, 1 Refill(s) ferrous sulfate 325 mg, 1 No Longer tab, Route: Active 2014 [facility] PO, Drug form: ECTAB, TID, Dosing Weight 71.364, kg, Priority: NOW, Start date: 11/06/14 9:50:00, Duration: 30 day, Stop date: 12/06/14 9:00:00Notes : Give with food. "Do Not Crush" nitroglycerin 0.4 mg, 1 No Longer 0.4 mg tab, Route: Active 2014 [facility] sublingual SL, Drug tablet form: TAB, Q5Min, PRN Chest Pain, Start date: 11/05/14 20:34:00, Duration: 30 day, Stop date: 12/05/14 20:33:00Note s: (Same as:Nitroquic k, Nitrostat) "Do Not Crush" Sublingual tablet atropine 0.5 mg, 5 No Longer mL, Route: Active 2014 [facility] IVP, Drug form: INJ, PRN, PRN Bradycardia, Start date: 11/05/14 20:34:00, Duration: 30 day, Stop date: 12/05/14 20:33:00 Saline Flush 10 ml, No Longer 0.9% Route: IVP, Active 2014 [facility] Drug Form: INJ, Dosing Weight 71.364, kg, PRN, PRN Line Flush, Start date: 11/05/14 20:11:00, Duration: 30 day, Stop date: 12/05/14 20:10:00Note s: Same as: BD Posiflush Sterile Sulfamethoxazole 1 tab, No Longer 800 MG / Route: PO, Active 2014 [facility] Trimethoprim 160 Drug Form: MG Oral Tablet [...] 1 gm, Route: Inactive IVPB, Drug 2014 [facility] form: PDR/INJ, ONCE, Dosing Weight 71.364, kg, Priority: STAT, Start date: 11/05/14 15:52:00, Stop date: 11/05/14 15:52:00 Ketorolac 30 mg, Inactive Route: IVP, 2014 [facility] Drug form: INJ, ONCE, Dosing Weight 71.364, kg, Priority: STAT, Start date: 11/05/14 15:39:00, Stop date: 11/05/14 15:39:00 Morphine 2 mg, Route: Inactive IVP, Drug 2014 [facility] form: INJ, ONCE, Dosing Weight 71.364, kg, Priority: STAT, Start date: 11/05/14 15:20:00, Stop date: 11/05/14 15:20:00 Aspirin 324 mg, Inactive Route: PO, 2014 [facility] ONCE, Dosing Weight 71.364, kg, Priority: STAT, Start date: 11/05/14 14:58:00, Stop date: 11/05/14 14:58:00 Saline Flush 10 mL, No Longer 0.9% Route: IVP, Active 2014 [facility] Drug Form: INJ, Dosing Weight 71.364, kg, PRN, PRN Line Flush, Start date: 11/05/14 14:58:00, Duration: 30 day, Stop date: 12/05/14 14:57:00Note s: Same as: BD Posiflush Sterile ferrous sulfate 325 mg=1 Active 325 mg oral tab, PO, 2014 [facility] enteric coated Daily, # 30 tablet tab, 0 Refill(s) Acetaminophen 1 - 2 tab, No Longer 300 MG / Codeine PO, Q6H, PRN Active 2014 [facility] Phosphate 30 MG Pain, X 2 Oral Tablet day, # 20 [Tylenol with tab, 0 Codeine #3] Refill(s) Acetaminophen 1 tab, Inactive 300 MG / Codeine Route: PO, 2014 [facility] Phosphate 30 MG Drug Form: Oral Tablet TAB, Dosing [Tylenol with Weight 77, Codeine #3] kg, ONCE, STAT, Start date: 11/03/14 10:14:00, Stop date: 11/03/14 10:14:00 GI cocktail 30 mL, Inactive Route: PO, 2014 [facility] Drug Form: SUSP, Dosing Weight 77, kg, ONCE, STAT, Start date: 11/03/14 8:51:00, Stop date: 11/03/14 8:51:00Notes : G.I. Cocktail=ant acid with simethicone 22.5 mL - lidocaine viscous 7.5 mL Morphine 2 mg, 1 mL, Inactive Route: IVP2014 [facility] Drug form: INJ, ONCE, Dosing Weight 77, kg, Priority: STAT, Start date: 11/03/14 8:51:00, Stop date: 11/03/14 8:51:00Notes : (Same as:MORPhine Sulfate) Aspirin 324 mg, 4 Inactive tab, Route: 2014 [facility] PO, Drug form: CHEWTAB, ONCE, Dosing Weight 77, kg, Priority: STAT, Start date: 11/03/14 8:50:00, Stop date: 11/03/14 8:50:00Notes : Take with food. Saline Flush 10 mL, Inactive 0.9% Route: IVP2014 [facility] Drug Form: INJ, Dosing Weight 77, kg, PRN, PRN Line Flush, Start date: 11/03/14 8:50:00, Duration: 30 day, Stop date: 12/03/14 8:49:00Notes : (Same as: BD Posiflush) ibuprofen 600 mg 600 mg=1 [facility], PO, 2012 Q6H, as needed for fever, take with food, # 30 tab, 0 Refill(s)azam e with food Tessalon Perles 100 mg=1 Active Fayrather 100 mg oral cap, PO, 2012 capsule TID, # 21 cap, 0 Refill(s) ondansetron 4 mg 4 mg=1 tab, Active Fayrather oral tablet, PO, TID, 2012 disintegrating Nausea / Vomiting, Dissolve tab under tongue, # 10 tab, 0 Refill(s)Dis solve tab under tongue ibuprofen 600 mg, 1 Inactive Fayrather tab, Route: 2012 [facility] PO, Drug form: TAB, ONCE, Dosing Weight 72.727, kg, Priority: STAT, Start date: 03/07/13 18:19:00, Stop date: 03/07/13 18:19:00([facility] as: Motrin) "Do Not Crush" Take with food. Tylenol 975 mg, 3 Inactive Fayrweather tab, Route: 2012 PO, Drug form: TAB, ONCE, Dosing Weight 72.727, kg, Priority: STAT, Start date: 03/07/13 17:29:00, Stop date: 03/07/13 17:29:00Do not exceed 4 gm/day. (Same as: Tylenol) ondansetron 4 mg 4 mg, 1 tab, Inactive Fayrweather oral tablet, Route: PO, 2012 [facility] disintegrating Drug form: TABDIS, ONCE, Dosing Weight 72.727, kg, Priority: STAT, Start date: 03/07/13 15:40:00, Stop date: 03/07/13 15:40:00([facility] as: Zofran ODT) Zithromax Z-Onel 250 mg=1 Active Poffinbarger 250 mg oral tab, PO2012 tablet Daily, TAKE 2 TABLETS ON DAY [...] 4 mg, 1 mL, Inactive [place] Route: IVP, 2012 Drug form: INJ, ONCE, Dosing Weight 72.727, kg, Priority: STAT, Start date: 03/07/13 9:37:00, Stop date: 03/07/13 9:37:00(Same as:MORPhine Sulfate) Zofran 4 mg, 2 mL, Inactive [place] Route: IVP, 2012 [facility] Drug form: INJ, ONCE, Dosing Weight 72.727, kg, Priority: STAT, Start date: 03/07/13 9:37:00, Stop date: 03/07/13 9:37:00(Same as: Zofran) acetaminophen 650 mg, 2 Inactive [place] 03/07[facility] tab, Route: 2012 [facility] PO, Drug form: TAB, ONCE, Dosing Weight 72.727, kg, Start date: 03/07/13 9:37:00, Stop date: 03/07/13 9:37:00Do not exceed 4 gm/day. (Same as: Tylenol) ceftriaxone + 1 gm, Route: Inactive [place] Sodium Chloride IVPB, Drug 2012 [facility] 0.9% IV 100 mL form: PDR/INJ, ONCE, Dosing Weight 72.727, kg, Priority: STAT, Start date: 03/07/13 9:37:00, Stop date: 03/07/13 9:37:00(Same As: Rocephin). Use with 100ml NS mini-bag PLUS and infuse over 30 min Sodium Chloride 1,000 mL, Inactive [place] 03/07[facility] 0.9% (Bolus) IV Rate: 1,000 2012 [facility] 1,000 mL ml/hr, Infuse over: 1 hr, Route: IV, Dosing Weight 72.727 kg, Total Volume: 1,000, Priority: STAT, Start date: 03/07/13 9:37:00, Duration: 1 doses or times, Stop date: 03/07/13 10:36:00 Saline Flush 5 mL, Route: Inactive [place] 0.9% IVP, Drug 2012 [facility] Form: INJ, Dosing Weight 72.727, kg, PRN, PRN Line Flush, Start date: 03/07/13 9:37:00, Duration: 30 day, Stop date: 04/06/13 9:36:00(Same as: BD Posiflush) acetaminophen 1,000 mg, 2 Inactive [place] tab, Route: 2012 [facility] PO, Drug form: TAB, ONCE, Dosing Weight [...] Reported Vicodin Assertion pass out Drug Active allergy [place] Immunizations No Data Provided for This Section Results Order Name Results Value Reference Date Interpretation Comments Source Range URINE AND UA Leuk Est Negative Negative 11/17 STOOL (11/17/17 12:22 AM) [place] URINE AND UA Bacteria Occasional None Seen 11/17 STOOL /HPF /HPF [place] URINE AND UA WBC 3 0 - 5 11/17 STOOL [place] URINE AND UA Mucus Few /LPF None Seen 11/17 STOOL /LPF [place] URINE AND UA Sq Epi Occasional Few /LPF 11/17 STOOL /LPF [place] URINE AND UA Nitrite Negative Negative 11/17 STOOL (11/17/17 12:22 AM) [place] URINE AND UA CaOx Judy Moderate None Seen 11/17 STOOL /HPF /HPF [place] URINE AND UA 4.0 0.1 - 1.0 11/17 STOOL Urobilinogen /2017 [place] URINE AND UA Ketones Negative Negative 11/17 STOOL mg/dL mg/dL [place] URINE AND UA Blood Negative Negative 11/17 STOOL (11/17/17 12:22 AM) [place] URINE AND UA Bili Negative Negative 11/17 STOOL *NA* /2017 [place] (11/17/17 12:22 AM) URINE AND UA Color Yellow Yellow 11/17 STOOL *NA* /2017 [place] (11/17/17 12:22 AM) URINE AND UA Protein Negative Negative 11/17 STOOL mg/dL mg/dL [place] URINE AND UA pH 7.0 5.0 - 8.0 11/17 STOOL [place] URINE AND UA Spec Grav 1.011 <=1.030 11/17 STOOL [place] URINE AND UA Turbidity Slight Clear 11/17 STOOL *ABN* /2017 [place] (11/17/17 12:22 AM) URINE AND UA Glucose Negative Negative 11/17 STOOL mg/dL mg/dL [place] CARDIAC Total CK 191 12 - 191 11/17 ENZYMES [place] CARDIAC Troponin-I <0.02 0.00 - 11/17 ENZYMES 0.40 [place] CHEM PANEL eGFR 104 11/17 Comment: The [place] eGFR is calculated using the CKD-EPI formula. In most young, healthy individuals the eGFR will be >90 mL/min/1.73m2 . The eGFR declines with age. An eGFR of 60-89 may be normal in some populations, particularly the elderly, for whom the CKD-EPI formula has not been extensively validated. Use of the eGFR is not recommended in the following populations:< br/>
Anabela viduals with unstable creatinine concentration s, including patients and those with serious co-morbid conditions.<b r/>
Patie nts with extremes in muscle mass or diet.

The data above are obtained from the National Kidney Disease Education Program (NKDEP) which additionally recommends that when the eGFR is used in patients with extremes of body mass index for purposes of drug dosing, the eGFR should be multiplied by the estimated BMI. CHEM PANEL Bili Total 0.5 0.2 - 1.3 11/17 [place] CHEM PANEL Total 8.9 6.4 - 8.4 11/17 Protein [place] CHEM PANEL ALT 24 0 - 65 11/17 [place] CHEM PANEL Albumin Lvl 3.7 3.5 - 5.0 11/17 [place] CHEM PANEL AST 27 0 - 37 11/17 [place] CHEM PANEL Alk Phos 86 39 - 136 11/17 [place] CHEM PANEL Chloride Lvl 103 95 - 109 11/17 [place] CHEM PANEL CO2 26 24 - 32 11/17 [place] CHEM PANEL Calcium Lvl 10.8 8.5 - 10.5 11/17 [place] CHEM PANEL Potassium 4.1 3.5 - 5.1 08 MH Lvl [place] CHEM PANEL Sodium Lvl 138 135 - 145 11/17 [place] CHEM PANEL Glucose Lvl 102 70 - 99 11/17 [place] CHEM PANEL BUN 6 7 - 22 11/17 [place] CHEM PANEL Creatinine 0.80 0.50 - 11/17 MH Lvl 1.40 [place] CHEM PANEL Globulin 5.2 2.7 - 4.2 11/17 [place] CHEM PANEL AGAP 13.1 10.0 - 11/17 MH 20.0 [place] CHEM PANEL A/G Ratio 0.7 0.7 - 1.6 11/17 [place] CHEM PANEL B/C Ratio 8 6 - 25 11/17 [place] CHEM PANEL Phosphorus 1.9 2.5 - 4.5 11/17 [place] CHEM PANEL Magnesium 2.2 1.8 - 2.4 11/17 Lvl [place] ENDOCRINOL S Preg Negative Negative 11/17 OGY *NA* /2017 [place] (11/16/17 11:23 PM) HEMATOLOGY Hct 39.7 36.0 - 11/17 MH 48.0 [place] HEMATOLOGY Hgb 14.0 12.0 - 11/17 MH 16.0 [place] HEMATOLOGY WBC 7.3 3.7 - 10.4 11/17 [place] HEMATOLOGY RBC 4.56 4.20 - 11/17 MH 5.40 [place] HEMATOLOGY MCHC 35.2 32.0 - 11/17 MH 36.0 [place] HEMATOLOGY MCV 87.1 80.0 - 11/17 MH 98.0 [place] HEMATOLOGY MPV 8.4 7.4 - 10.4 11/17 [place] HEMATOLOGY RDW 13.0 11.5 - 11/17 MH 14.5 [place] HEMATOLOGY MCH 30.7 27.0 - 11/17 MH 31.0 [place] HEMATOLOGY Platelet 263 133 - 450 11/17 [place] HEMATOLOGY D-Dimer 0.27 11/17 [place] HEMATOLOGY Lymphocytes 2.3 1.0 - 5.5 11/17 MH # /2017 [place] HEMATOLOGY Segs 58.7 45.0 - 11/17 MH 75.0 [place] HEMATOLOGY Lymphocytes 31.5 20.0 - 11/17 MH 40.0 [place] HEMATOLOGY Neutrophils 4.3 1.5 - 8.1 11/17 MH # [place] HEMATOLOGY Basophils 0.6 0.0 - 1.0 11/17 [place] HEMATOLOGY Monocytes 6.7 2.0 - 12.0 11/17 [place] HEMATOLOGY Eosinophils 2.5 0.0 - 4.0 11/17 [place] HEMATOLOGY Eosinophils 0.2 0.0 - 0.5 11/17 MH # [place] HEMATOLOGY Monocytes # 0.5 0.0 - 0.8 11/17 [place] DRUG UDS Note See Note 10/31 MH SCREEN *NA* /2017 [place] (10/31/17 5:01 PM) DRUG U Negative Negative 10/31 SCREEN Phencyclidin * [place] e Scr (10/31/17 5:01 PM) DRUG U Opiate Scr Negative Negative 10/31 SCREEN *NA [place] (10/31/17 5:01 PM) DRUG U Cannab Scr Negative Negative 10/31 SCREEN *NA* /2017 [place] (10/31/17 5:01 PM) DRUG U Indu Scr Negative Negative 10/31 SCREEN * [place] (10/31/17 5:01 PM) DRUG U Amph Scr Negative Negative 10/31 SCREEN *NA [place] (10/31/17 5:01 PM) DRUG U Cocaine Negative Negative 10/31 SCREEN Scr * [place] (10/31/17 5:01 PM) DRUG U Benzodiaz Negative Negative 10/31 SCREEN Scr *NA* [place] (10/31/17 5:01 PM) URINE AND UA CaOx Judy Moderate None Seen 10/31 MH STOOL /HPF /HPF [place] URINE AND UA Bacteria Moderate None Seen 10/31 STOOL /HPF /HPF [place] URINE AND UA Mucus Few /LPF None Seen 10/31 MH STOOL /LPF /2017 [place] URINE AND UA WBC 7 0 - 5 10/31 MH STOOL [place] URINE AND UA RBC 3 0 - 2 10/31 STOOL [place] URINE AND UA Sq Epi Few /LPF Few /LPF 10/31 STOOL [place] URINE AND UA Leuk Est Negative Negative 10/31 STOOL (10/31/17 5:01 PM) [place] URINE AND UA 4.0 0.1 - 1.0 10/31 STOOL Urobilinogen /2017 [place] URINE AND UA Nitrite Negative Negative 10/31 STOOL (10/31/17 5:01 PM) [place] URINE AND UA Ketones 20 mg/dL Negative 10/31 STOOL mg/dL /2017 [place] URINE AND UA Glucose Negative Negative 10/31 STOOL mg/dL mg/dL [place] URINE AND UA Turbidity Slight Clear 10/31 STOOL *ABN* /2017 [place] (10/31/17 5:01 PM) URINE AND UA Color Yellow Yellow 10/31 STOOL *NA* /2017 [place] (10/31/17 5:01 PM) URINE AND UA Blood Negative Negative 10/31 STOOL (10/31/17 5:01 PM) [place] URINE AND UA Bili Negative Negative 10/31 STOOL *NA* /2017 [place] (10/31/17 5:01 PM) URINE AND UA Protein Negative Negative 10/31 STOOL mg/dL mg/dL [place] URINE AND UA pH 6.0 5.0 - 8.0 10/31 STOOL [place] URINE AND UA Spec Grav 1.014 <=1.030 10/31 STOOL [place] Culture: 50,000 - 10/31 Urine 100,000 [place] CFU/mL [facility] CARDIAC Total CK 110 12 - 191 10/31 ENZYMES /2017 [place] CARDIAC Troponin-I <0.02 0.00 - 10/31 ENZYMES 0.40 [place] ELECTROLYT AGAP 12.4 10.0 - 10/31 ES 20.0 [place] ELECTROLYT eGFR 84 10/31 Result ES Comment: The [place] eGFR is calculated using the CKD-EPI formula. In most young, healthy individuals the eGFR will be >90 mL/min/1.73m2 . The eGFR declines with age. An eGFR of 60-89 may be normal in some populations, particularly the elderly, for whom the CKD-EPI formula has not been extensively validated. Use of the eGFR is not recommended in the following populations:< br/>
Anabela viduals with unstable creatinine concentration s, including patients and those with serious co-morbid conditions.<b r/>
Patie nts with extremes in muscle mass or diet.

The data above are obtained from the National Kidney Disease Education Program (NKDEP) which additionally recommends that when the eGFR is used in patients with extremes of body mass index for purposes of drug dosing, the eGFR should be multiplied by the estimated BMI. ELECTROLYT Calcium Lvl 10.3 8.5 - 10.5 10/31 [place] ELECTROLYT Creatinine 0.96 0.50 - 10/31 ES Lvl 1.40 /2017 [place] ELECTROLYT Potassium 3.4 3.5 - 5.1 10/31 ES Lvl [place] ELECTROLYT BUN 9 7 - 22 10/31 [place] ELECTROLYT Glucose Lvl 96 70 - 99 10/31 ES [place] ELECTROLYT Sodium Lvl 139 135 - 145 10/31 [place] ELECTROLYT Chloride Lvl 102 95 - 109 10/31 [place] ELECTROLYT CO2 28 24 - 32 10/31 ES [place] ENDOCRINOL S Preg Negative Negative 10/31 OGY *NA* /2017 [place] (10/31/17 3:27 PM) HEMATOLOGY Lymphocytes 18.7 20.0 - 08 MH 40.0 [place] HEMATOLOGY Monocytes 9.1 2.0 - 12.0 10/31 [place] HEMATOLOGY Neutrophils 6.6 1.5 - 8.1 10/31 MH # /2017 [place] HEMATOLOGY Lymphocytes 1.8 1.0 - 5.5 10/31 MH # [place] HEMATOLOGY Segs 70.6 45.0 - 0808 MH 75.0 [place] HEMATOLOGY Eosinophils 1.3 0.0 - 4.0 10/31 [place] HEMATOLOGY Basophils 0.3 0.0 - 1.0 10/31 [place] HEMATOLOGY Monocytes # 0.9 0.0 - 0.8 10/31 [place] HEMATOLOGY Eosinophils 0.1 0.0 - 0.5 10/31 MH # /2017 [place] HEMATOLOGY PT 15.7 12.0 - 08 MH 14.7 [place] HEMATOLOGY INR 1.24 0.85 - 08 MH 1.17 /2017 [place] HEMATOLOGY PTT 31.0 22.9 - 08 MH 35.8 /2017 [place] HEMATOLOGY Hgb 13.5 12.0 - 08 MH 16.0 /2017 [place] HEMATOLOGY RBC 4.35 4.20 - 08 MH 5.40 [place] HEMATOLOGY RDW 13.4 11.5 - 08 MH 14.5 [place] HEMATOLOGY WBC 9.4 3.7 - 10.4 08 MH /2017 [place] HEMATOLOGY MCHC 34.7 32.0 - 08 MH 36.0 /2017 [place] HEMATOLOGY MCH 31.0 27.0 - 08 MH 31.0 /2017 [place] HEMATOLOGY Hct 38.8 36.0 - 08 MH 48.0 [place] HEMATOLOGY MCV 89.4 80.0 - 08 MH 98.0 /2017 [place] HEMATOLOGY MPV 8.2 7.4 - 10.4 10/31 [place] HEMATOLOGY Platelet 238 133 - 450 10/31 MH [place] TOXICOLOGY Ethanol Lvl <3 10/31 [place] TOXICOLOGY Etoh (%) <0.003 10/31 [place] CARDIAC Troponin-I <0.02 0.00 - 08 ENZYMES 0.40 [facility] CARDIAC Total CK 121 12 - 191 10/26 ENZYMES /2017 [facility] CARDIAC Troponin-I <0.02 0.00 - 10/26 ENZYMES 0. [facility] CARDIAC CK MB <1.0 0.5 - 3.6 10/26 ENZYMES /2017 [facility] CARDIAC CK MB Index <0.8 0.0 - 2.5 10/26 ENZYMES /2017 [facility] CHEM PANEL Lipase Lvl 217 73 - 393 10/26 [facility] CHEM PANEL Total 8.4 6.4 - 8.4 10/26 MH Protein [facility] CHEM PANEL Albumin Lvl 3.7 3.5 - 5.0 10/26 [facility] CHEM PANEL ALT 24 0 - 65 10/26 [facility] CHEM PANEL AST 18 0 - 37 10/26 [facility] CHEM PANEL Bili Direct 0.1 0.0 - 0.3 10/26 [facility] CHEM PANEL Alk Phos 86 39 - 136 10/26 [place] CHEM PANEL Bili Total 0.6 0.2 - 1.3 10/26 [place] CHEM PANEL Bili 0.5 0.0 - 1.0 10/26 [facility] CHEM PANEL Globulin 4.7 2.7 - 4.2 10/26 [place] CHEM PANEL A/G Ratio 0.8 0.7 - 1.6 10/26 [place] CHEM PANEL eGFR 124 10/26 Comment: The [facility] eGFR is calculated using the CKD-EPI formula. In most young, healthy individuals the eGFR will be >90 mL/min/1.73m2 . The eGFR declines with age. An eGFR of 60-89 may be normal in some populations, particularly the elderly, for whom the CKD-EPI formula has not been extensively validated. Use of the eGFR is not recommended in the following populations:< br/>
Anabela viduals with unstable creatinine concentration s, including patients and those with serious co-morbid conditions.<b r/>
Patie nts with extremes in muscle mass or diet.

The data above are obtained from the National Kidney Disease Education Program (NKDEP) which additionally recommends that when the eGFR is used in patients with extremes of body mass index for purposes of drug dosing, the eGFR should be multiplied by the estimated BMI. CHEM PANEL Creatinine 0.70 0.50 - 08 MH Lvl 1.40 /2017 [facility] CHEM PANEL Sodium Lvl 134 135 - 145 10/26 [facility] CHEM PANEL Potassium 3.6 3.5 - 5.1 10/26 MH Lvl [facility] CHEM PANEL CO2 25 24 - 32 10/26 [facility] CHEM PANEL Chloride Lvl 103 95 - 109 10/26 [facility] CHEM PANEL Calcium Lvl 10.3 8.5 - 10.5 10/26 [facility] CHEM PANEL Glucose Lvl 93 70 - 99 10/26 [facility] CHEM PANEL BUN 8 7 - 22 10/26 [facility] CHEM PANEL AGAP 9.6 10.0 - 08/ MH 20.0 /2018 [facility] HEMATOLOGY Basophils # 0.0 0.0 - 0.2 10/26 [facility] HEMATOLOGY Lymphocytes 2.4 1.0 - 5.5 / MH # /2018 [facility] HEMATOLOGY Monocytes # 0.6 0.0 - 0.8 10/26 [facility] HEMATOLOGY Eosinophils 0.1 0.0 - 0.5 10/26 MH # /2017 [facility] HEMATOLOGY Eosinophils 2.1 0.0 - 4.0 10/26 [facility] HEMATOLOGY Basophils 0.4 0.0 - 1.0 10/26 [facility] HEMATOLOGY Neutrophils 3.7 1.5 - 8.1 10/26 MH # /2017 [facility] HEMATOLOGY Lymphocytes 35.4 20.0 - 10/26 MH 40.0 [facility] HEMATOLOGY Monocytes 8.2 2.0 - 12.0 10/26 [facility] HEMATOLOGY Segs 53.9 45.0 - 10/26 MH 75.0 [facility] MPV 7.8 7.4 - 10.4 10/26 [facility] Platelet 251 133 - 450 10/26 [facility] HEMATOLOGY RDW 13.4 11.5 - 10/26 14.5 [facility] MCHC 34.1 32.0 - 10/26 MH 36.0 [facility] MCH 30.7 27.0 - 10/26 31.0 [facility] MCV 90.0 80.0 - 10/26 98.0 [facility] HEMATOLOGY Hct 40.4 36.0 - 10/26 MH 48.0 [facility] Hgb 13.8 12.0 - 10/26 16.0 [facility] RBC 4.49 4.20 - 10/26 MH 5.40 /2017 [facility] WBC 6.9 3.7 - 10.4 10/26 [facility] CHEM PANEL eGFR 101 10/13 Result Comment: The [place] eGFR is calculated using the CKD-EPI formula. In most young, healthy individuals the eGFR will be >90 mL/min/1.73m2 . The eGFR declines with age. An eGFR of 60-89 may be normal in some populations, particularly the elderly, for whom the CKD-EPI formula has not been extensively validated. Use of the eGFR is not recommended in the following populations:< br/>
Anabela viduals with unstable creatinine concentration s, including patients and those with serious co-morbid conditions.<b r/>
Patie nts with extremes in muscle mass or diet.

The data above are obtained from the National Kidney Disease Education Program (NKDEP) which additionally recommends that when the eGFR is used in patients with extremes of body mass index for purposes of drug dosing, the eGFR should be multiplied by the estimated BMI. CHEM PANEL Bili Total 0.4 0.2 - 1.3 10/13 [place] CHEM PANEL Alk Phos 83 39 - 136 10/13 [place] CHEM PANEL AST 14 0 - 37 10/13 [place] CHEM PANEL ALT 22 0 - 65 10/13 [place] CHEM PANEL Glucose Lvl 125 70 - 99 10/13 [place] CHEM PANEL A/G Ratio 0.8 0.7 - 1.6 10/13 [place] CHEM PANEL Globulin 4.5 2.7 - 4.2 10/13 [place] CHEM PANEL B/C Ratio 8 6 - 25 10/13 [place] CHEM PANEL Calcium Lvl 10.2 8.5 - 10.5 10/13 [place] CHEM PANEL Total 7.9 6.4 - 8.4 10/13 [place] CHEM PANEL Albumin Lvl 3.4 3.5 - 5.0 10/13 [place] CHEM PANEL Chloride Lvl 102 95 - 109 10/13 [place] CHEM PANEL CO2 30 24 - 32 10/13 [place] CHEM PANEL AGAP 10.8 10.0 - 10/13 20. [place] CHEM PANEL BUN 7 7 - 22 10/13 [place] CHEM PANEL Sodium Lvl 139 135 - 145 10/13 [place] CHEM PANEL Potassium 3.8 3.5 - 5.1 10/13 MH Lvl [place] CHEM PANEL Creatinine 0.83 0.50 - 10/13 MH Lvl 1.40 [place] CHEM PANEL Lipase Lvl 204 73 - 393 10/13 [place] ENDOCRINOL S Preg Negative Negative 10/13 OGY *NA* /2017 [place] (10/13/17 10:16 AM) HEMATOLOGY Monocytes 7.5 2.0 - 12.0 10/13 [place] HEMATOLOGY Segs 64.6 45.0 - 10/13 MH 75.0 [place] HEMATOLOGY Lymphocytes 26.4 20.0 - 10/13 MH 40.0 [place] HEMATOLOGY Neutrophils 4.8 1.5 - 8.1 10/13 MH # /2017 [place] HEMATOLOGY Basophils 0.4 0.0 - 1.0 10/13 [place] HEMATOLOGY Eosinophils 1.1 0.0 - 4.0 10/13 [place] HEMATOLOGY Monocytes # 0.6 0.0 - 0.8 10/13 [place] HEMATOLOGY Lymphocytes 2.0 1.0 - 5.5 10/13 MH # /2017 [place] HEMATOLOGY Eosinophils 0.1 0.0 - 0.5 10/13 MH # /2017 [place] HEMATOLOGY RDW 13.4 11.5 - 10/13 MH 14.5 [place] HEMATOLOGY MCH 30.7 27.0 - 10/13 MH 31.0 [place] HEMATOLOGY Platelet 204 133 - 450 10/13 [place] HEMATOLOGY MCHC 34.7 32.0 - 10/13 MH 36.0 [place] HEMATOLOGY MCV 88.5 80.0 - 10/13 MH 98.0 [place] HEMATOLOGY MPV 8.2 7.4 - 10.4 10/13 [place] HEMATOLOGY Hct 38.7 36.0 - 10/13 MH 48.0 [place] HEMATOLOGY Hgb 13.4 12.0 - 10/13 MH 16.0 [place] HEMATOLOGY RBC 4.37 4.20 - 10/13 MH 5.40 /2017 [place] HEMATOLOGY WBC 7.4 3.7 - 10.4 10/13 [place] URINE AND UA <=1.0 0.1 - 1.0 10/13 STOOL Urobilinogen mg/dL /2017 [place] URINE AND UA Mucus Few /LPF None Seen 10/13 STOOL /LPF /2017 [place] URINE AND UA CaOx Judy Many /HPF None Seen 10/13 STOOL /HPF /2017 [place] URINE AND UA RBC 3 0 - 2 10/13 STOOL /2017 [place] URINE AND UA WBC 2 0 - 5 10/13 STOOL [place] URINE AND UA Leuk Est Negative Negative 10/13 STOOL (10/13/17 10:16 AM) /2017 [place] URINE AND UA Sq Epi Few /LPF Few /LPF 10/13 STOOL [place] URINE AND UA Bacteria Occasional None Seen 10/13 STOOL /HPF /HPF /2017 [place] URINE AND UA Blood Negative Negative 10/13 STOOL (10/13/17 10:16 AM) /2017 [place] URINE AND UA Nitrite Negative Negative 10/13 STOOL (10/13/17 10:16 AM) /2017 [place] URINE AND UA pH 6.0 5.0 - 8.0 10/13 STOOL /2017 [place] URINE AND UA Spec Grav 1.008 <=1.030 10/13 STOOL /2017 [place] URINE AND UA Ketones Negative Negative 10/13 STOOL mg/dL mg/dL /2017 [place] URINE AND UA Bili Negative Negative 10/13 STOOL *NA* /2017 [place] (10/13/17 10:16 AM) URINE AND UA Glucose Negative Negative 10/13 STOOL mg/dL mg/dL /2017 [place] URINE AND UA Color Yellow Yellow 10/13 STOOL *NA* /2017 [place] (10/13/17 10:16 AM) URINE AND UA Turbidity Slight Clear 10/13 STOOL *ABN* /2017 [place] (10/13/17 10:16 AM) URINE AND UA Protein Negative Negative 10/13 STOOL mg/dL mg/dL [place] ENDOCRINOL S Preg Negative Negative 05/01 [place] OGY *NA* /2016 [place] (05/01/16 7:00 AM) BLOOD BANK ABO/Rh B POS 04/24 [place] RESULTS [place] BLOOD BANK Antibody Negative 04/24 [place] RESULTS [facility] (04/24/16 10:31 AM) [place] HEMATOLOGY Basophils # 0.0 0.0 - 0.2 04/24 [place] HEMATOLOGY Monocytes # 0.4 0.0 - 0.8 04/24 [place] HEMATOLOGY Eosinophils 0.1 0.0 - 0.5 04/24 MH [place] # [place] HEMATOLOGY Segs-Bands # 3.3 1.5 - 8.1 04/24 [place] /2016 [place] HEMATOLOGY Lymphocytes 1.6 1.0 - 5.5 04/24 MH [place] # /2016 [place] HEMATOLOGY Segs 60.9 45.0 - 04/24 MH [place] 75.0 [place] HEMATOLOGY Basophils 0.5 0.0 - 1.0 04/24 [place] /2016 [place] HEMATOLOGY Eosinophils 1.8 0.0 - 4.0 04/24 [place] /2016 [place] HEMATOLOGY Lymphocytes 29.1 20.0 - 04/24 MH [place] 40.0 /2016 [facility] HEMATOLOGY Monocytes 7.7 2.0 - 12.0 04/24 [place] /2016 [facility] HEMATOLOGY MCH 28.5 27.0 - 04/24 [place] 31.0 /2016 [facility] HEMATOLOGY MCV 87.6 80.0 - 04/24 [place] 98.0 /2016 [facility] HEMATOLOGY Hct 37.5 36.0 - 04/24 [place] 48.0 /2016 [facility] HEMATOLOGY MCHC 32.6 32.0 - 04/24 [place] 36.0 /2017 [facility] HEMATOLOGY Platelet 263 133 - 450 04/24 [place] [facility] HEMATOLOGY RDW 15.8 11.5 - 04/24 [place] 14.5 /2016 [facility] HEMATOLOGY MPV 8.6 7.4 - 10.4 04/24 [place] [facility] HEMATOLOGY WBC 5.4 3.7 - 10.4 04/24 [place] [facility] HEMATOLOGY Hgb 12.2 12.0 - 04/24 [place] 16.0 [facility] HEMATOLOGY RBC 4.29 4.20 - 04/24 [place] 5.40 /2017 [facility] URINE AND UA Color Yellow Yellow 03/17 STOOL *NA* /2015 [place] (03/17/16 5:03 PM) URINE AND UA Turbidity Cloudy Clear 03/17 STOOL *ABN* /2015 [place] (03/17/16 5:03 PM) URINE AND UA Ketones Negative Negative 03/17 STOOL *NA* /2015 [place] (03/17/16 5:03 PM) URINE AND UA Glucose Negative Negative 03/17 [facility] (03/17/16 5:03 PM) [place] URINE AND UA Spec Grav 1.025 <=1.030 03/17 STOOL /2015 [place] URINE AND UA pH 6.0 5.0 - 8.0 03/17 STOOL /2015 [place] URINE AND UA Protein 30 mg/dL Negative 03/17 STOOL mg/dL /2015 [place] URINE AND UA Nitrite Negative Negative 03/17 [facility] (03/17/16 5:03 PM) [place] URINE AND UA Bili Negative Negative 03/17 STOOL *NA* /2015 [place] (03/17/16 5:03 PM) URINE AND UA Blood Moderate Negative 03/17 STOOL *ABN* /2015 [place] (03/17/16 5:03 PM) URINE AND UA 4.0 0.1 - 1.0 03/17 STOOL Urobilinogen /2015 [place] URINE AND UA Leuk Est Moderate Negative 03/17 STOOL *ABN* /2015 [place] (03/17/16 5:03 PM) URINE AND UA Sq Epi Occasional Few /LPF 03/17 STOOL /LPF [place] URINE AND UA RBC 3-5 /HPF 0 - 2 03/17 STOOL [place] URINE AND UA Bacteria Many /HPF None Seen 03/17 STOOL /HPF [place] URINE AND UA WBC 11-20 /HPF None Seen 03/17 STOOL /HPF /2015 [place] CHEM PANEL Lipase Lvl 193 73 - 393 03/17 [place] CHEM PANEL A/G Ratio 0.5 0.7 - 1.6 03/17 [place] CHEM PANEL AGAP 11.4 10.0 - 03/17 MH 20.0 [place] CHEM PANEL Globulin 5.5 2.7 - 4.2 03/17 [facility] CHEM PANEL B/C Ratio 7 6 - 25 03/17 [facility] CHEM PANEL eGFR 100 03/17 Comment: The [facility] eGFR is calculated using the CKD-EPI formula. In most young, healthy individuals the eGFR will be >90 mL/min/1.73m2 . The eGFR declines with age. An eGFR of 60-89 may be normal in some populations, particularly the elderly, for whom the CKD-EPI formula has not been extensively validated. Use of the eGFR is not recommended in the following populations:< br/>
Anabela viduals with unstable creatinine concentration s, including patients and those with serious co-morbid conditions.<b r/>
Patie nts with extremes in muscle mass or diet.

The data above are obtained from the National Kidney Disease Education Program (NKDEP) which additionally recommends that when the eGFR is used in patients with extremes of body mass index for purposes of drug dosing, the eGFR should be multiplied by the estimated BMI. CHEM PANEL ALANINE 65 0 - 65 03/17 AMINOTRANSFE [facility] RASE CHEM PANEL Potassium 3.4 3.5 - 5.1 03/17 Lvl [facility] CHEM PANEL BUN 6 7 - 22 03/17 [facility] CHEM PANEL Sodium Lvl 137 135 - 145 03/17 [facility] CHEM PANEL Creatinine 0.85 0.50 - 03/17 MH Lvl 1.40 [facility] CHEM PANEL Bili Total 0.5 0.2 - 1.3 03/17 [facility] CHEM PANEL Chloride Lvl 100 95 - 109 03/17 [facility] CHEM PANEL Calcium Lvl 9.6 8.5 - 10.5 03/17 [facility] CHEM PANEL CO2 29 24 - 32 03/17 [facility] CHEM PANEL ASPARTATE 59 0 - 37 03/17 MH [facility] CHEM PANEL Total 8.5 6.4 - 8.4 03/17 [facility] CHEM PANEL Glucose Lvl 106 70 - 99 03/17 [facility] CHEM PANEL Albumin Lvl 3.0 3.5 - 5.0 03/17 [facility] CHEM PANEL Alk Phos 83 39 - 136 03/17 [facility] ENDOCRINOL S Preg Negative Negative 03/17 OGY *NA* /2015 [facility] (03/17/16 4:42 PM) HEMATOLOGY MPV 8.6 7.4 - 10.4 03/17 [facility] HEMATOLOGY MCHC 34.3 32.0 - 03/17 MH 36.0 [facility] HEMATOLOGY Platelet 133 133 - 450 03/17 [facility] HEMATOLOGY RDW 16.8 11.5 - 03/17 MH 14. [facility] HEMATOLOGY MCH 28.7 27.0 - 03/17 MH 31.0 [facility] HEMATOLOGY Hgb 11.7 12.0 - 03/17 MH 16.0 [facility] HEMATOLOGY Hct 34.1 36.0 - 03/17 MH 48.0 [facility] HEMATOLOGY WBC X 10x3 7.6 3.7 - 10.4 03/17 [facility] HEMATOLOGY MCV 83.6 80.0 - 03/17 MH 98.0 [facility] HEMATOLOGY RBC X 10x6 4.08 4.20 - 03/17 MH 5.40 [facility] HEMATOLOGY Eosinophils 0.6 0.0 - 4.0 03/17 [facility] HEMATOLOGY Lymphocytes 16.1 20.0 - 03/17 MH 40.0 [facility] HEMATOLOGY Monocytes 12.9 2.0 - 12.0 03/17 [facility] HEMATOLOGY Segs-Bands # 5.3 1.5 - 8.1 03/17 [facility] HEMATOLOGY Monocytes # 1.0 0.0 - 0.8 03/17 [facility] HEMATOLOGY Lymphocytes 1.2 1.0 - 5.5 03/17 MH # /2016 [facility] HEMATOLOGY Basophils 0.2 0.0 - 1.0 03/17 [facility] HEMATOLOGY Segs 70.2 45.0 - 03/17 MH 75.0 [facility] VIRAL - Influ B Negative Negative 03/17 [facility] (03/17/16 4:42 PM) [facility] VIRAL - Influ A Negative Negative 03/17 SEROLOGY (03/17/16 4:42 PM) [facility] ANEMIA % Satur Fe 6 12 - 57 04/08 STUDY /2015 [facility] ANEMIA TIBC 478 228 - 428 04/08 STUDY [facility] ANEMIA UIBC 448 110 - 370 04/08 STUDY [facility] ANEMIA Iron 30 30 - 160 04/08 STUDY [facility] ANEMIA Ferritin Lvl 5 5 - 204 04/08 STUDY [facility] CARDIAC CK MB 0.7 0.5 - 3.6 04/08 ENZYMES [facility] CARDIAC Total CK 217 12 - 191 04/08 ENZYMES [facility] CARDIAC CK MB Index 0.3 0.0 - 2.5 04/08 ENZYMES [facility] CHEM PANEL eGFR 132 04/08 Result Comment: The [facility] eGFR is calculated using the CKD-EPI formula. In most young, healthy individuals the eGFR will be >90 mL/min/1.73m2 . The eGFR declines with age. An eGFR of 60-89 may be normal in some populations, particularly the elderly, for whom the CKD-EPI formula has not been extensively validated. Use of the eGFR is not recommended in the following populations:< br/>
Anabela viduals with unstable creatinine concentration s, including patients and those with serious co-morbid conditions.<b r/>
Patie nts with extremes in muscle mass or diet.

The data above are obtained from the National Kidney Disease Education Program (NKDEP) which additionally recommends that when the eGFR is used in patients with extremes of body mass index for purposes of drug dosing, the eGFR should be multiplied by the estimated BMI. CHEM PANEL AST 39 0 - 37 04/08 [facility] CHEM PANEL Alk Phos 91 39 - 136 04/08 [facility] CHEM PANEL ALT 25 0 - 65 04/08 [facility] CHEM PANEL Bili Total 0.4 0.2 - 1.3 04/08 [facility] CHEM PANEL Calcium Lvl 9.4 8.5 - 10.5 04/08 [facility] CHEM PANEL B/C Ratio 13 6 - 25 04/08 [facility] CHEM PANEL AGAP 15.2 10.0 - 04/08 MH 20.0 [facility] CHEM PANEL CO2 21 24 - 32 04/08 [facility] CHEM PANEL A/G Ratio 0.5 0.7 - 1.6 04/08 [facility] CHEM PANEL Globulin 5.0 2.0 - 4.0 04/08 [facility] CHEM PANEL Total 7.7 6.4 - 8.4 04/08 [facility] CHEM PANEL Albumin Lvl 2.7 3.5 - 5.0 04/08 [facility] CHEM PANEL BUN 8 7 - 22 04/08 [facility] CHEM PANEL Glucose Lvl 86 70 - 99 04/08 [facility] CHEM PANEL Creatinine 0.60 0.50 - 04/08 Lvl 1.40 [facility] CHEM PANEL Sodium Lvl 138 135 - 145 04/08 [facility] CHEM PANEL Chloride Lvl 106 95 - 109 04/08 [facility] CHEM PANEL Potassium 4.2 3.5 - 5.1 04/08 Lvl /2015 [facility] HEMATOLOGY Polychrom Moderate None Seen 04/08 *ABN* /2015 [facility] (04/08/15 5:10 AM) HEMATOLOGY Microcyte 2+ None Seen 04/08 *ABN* /2015 [facility] (04/08/15 5:10 AM) HEMATOLOGY Basophils # 0.0 0.0 - 0.2 04/08 [facility] HEMATOLOGY Plt Morph Normal 04/08 (04/08/15 5:10 AM) /2015 [facility] HEMATOLOGY Lymphocytes 1.8 1.0 - 5.5 04/08 # /2015 [facility] HEMATOLOGY Segs-Bands # 3.0 1.5 - 8.1 04/08 [facility] HEMATOLOGY Monocytes # 0.4 0.0 - 0.8 04/08 [facility] HEMATOLOGY Eosinophils 0.1 0.0 - 0.5 04/08 # /2015 [facility] HEMATOLOGY Monocytes 7.0 2.0 - 12.0 04/08 [facility] HEMATOLOGY Segs 56.2 45.0 - 04/08 75.0 /2015 [facility] HEMATOLOGY Eosinophils 2.0 0.0 - 4.0 04/08 [facility] HEMATOLOGY Lymphocytes 34.2 20.0 - 04/08 MH 40.0 /2015 [facility] HEMATOLOGY Basophils 0.6 0.0 - 1.0 04/08 [facility] HEMATOLOGY MPV 8.3 7.4 - 10.4 04/08 [facility] HEMATOLOGY Platelet 291 133 - 450 04/08 [facility] HEMATOLOGY RDW 17.7 11.5 - 04/08 14.5 [facility] HEMATOLOGY MCHC 30.4 32.0 - 04/08 36.0 /2015 [facility] HEMATOLOGY MCH 21.9 27.0 - 04/08 31.0 /2015 [facility] HEMATOLOGY RBC 3.99 4.20 - 04/08 5.40 /2015 [facility] HEMATOLOGY WBC 5.4 3.7 - 10.4 04/08 [facility] HEMATOLOGY MCV 72.1 80.0 - 04/08 98.0 /2015 [facility] HEMATOLOGY Hgb 8.8 12.0 - 04/08 16.0 [facility] HEMATOLOGY Hct 28.8 36.0 - 04/08 48.0 /2015 [facility] LIPIDS CHD Risk 3.45 3.90 - 04/08 5.80 /2015 [facility] LIPIDS HDL 53 >=61 mg/dL 04/08 [facility] LIPIDS LDL 106 <=99 mg/dL 04/08 (Calculated) [facility] LIPIDS Trig 121 <=149 04/08 mg/dL /2015 [facility] LIPIDS Chol 183 <=199 04/08 mg/dL /2015 [facility] LIPIDS VLDL 24 04/08 [facility] ANEMIA Folate Lvl 17.7 >=3.0 04/08 STUDY ng/mL /2015 [facility] ANEMIA Vitamin B12 539 254 - 1320 04/08 STUDY Lvl /2015 [facility] ANEMIA Ferritin Lvl 2 5 - 204 04/08 STUDY /2015 [facility] HEMATOLOGY Retic Auto 1.4 0.5 - 1.5 04/08 [facility] CARDIAC Troponin-I <0.02 0.00 - 04/07 ENZYMES 0.40 [facility] CARDIAC Total CK 257 12 - 191 04/07 ENZYMES [facility] CARDIAC CK MB Index 0.4 0.0 - 2.5 04/07 ENZYMES [facility] CARDIAC CK MB 1.1 0.5 - 3.6 04/07 ENZYMES [facility] CARDIAC Troponin-I <0.02 0.00 - 04/07 ENZYMES 0.40 [facility] URINE AND UA Spec Grav 1.020 <=1.030 04/07 STOOL [facility] URINE AND UA Protein Trace Negative 04/07 STOOL *ABN* /2015 [facility] (04/07/15 8:33 AM) URINE AND UA pH 6.5 5.0 - 8.0 04/07 STOOL [facility] URINE AND UA Ketones Negative Negative 04/07 STOOL *NA* /2015 [facility] (04/07/15 8:33 AM) URINE AND UA Glucose Negative Negative 04/07 STOOL (04/07/15 8:33 AM) [facility] URINE AND UA Bili Negative Negative 04/07 STOOL *NA* /2015 [facility] (04/07/15 8:33 AM) URINE AND UA 0.2 0.1 - 1.0 04/07 STOOL Urobilinogen /2015 [facility] URINE AND UA Blood Large Negative 04/07 STOOL *ABN* [facility] (04/07/15 8:33 AM) URINE AND UA Leuk Est Negative Negative 04/07 STOOL (04/07/15 8:33 AM) [facility] URINE AND UA Nitrite Negative Negative 04/07 STOOL (04/07/15 8:33 AM) [facility] URINE AND UA Turbidity Clear Clear 04/07 STOOL (04/07/15 8:33 AM) [facility] URINE AND UA Color Yellow Yellow 04/07 STOOL *NA* /2015 [facility] (04/07/15 8:33 AM) URINE AND UA Mucus Few /LPF None Seen 04/07 STOOL /LPF /2015 [facility] URINE AND UA Bacteria Occasional None Seen 04/07 STOOL /HPF /HPF [facility] URINE AND UA WBC 0-2 /HPF None Seen 04/07 STOOL /HPF [facility] URINE AND UA Sq Epi Few /LPF Few /LPF 04/07 STOOL [facility] URINE AND Micro? Performed 04/07 STOOL (04/07/15 8:33 AM) [facility] URINE AND UA RBC 3-5 /HPF 0 - 2 04/07 STOOL /2015 [facility] CARDIAC Troponin-I <0.02 0.00 - 04/07 ENZYMES 0.40 /2016 [facility] CARDIAC BNP 45 <=100 04/07 ENZYMES pg/mL /2015 [facility] CARDIAC CK MB 1.2 0.5 - 3.6 04/07 ENZYMES [facility] CARDIAC Total CK 219 12 - 191 04/07 ENZYMES [facility] CARDIAC CK MB Index 0.5 0.0 - 2.5 04/07 ENZYMES [facility] CHEM PANEL eGFR 115 04/07 Result Comment: The [facility] eGFR is calculated using the CKD-EPI formula. In most young, healthy individuals the eGFR will be >90 mL/min/1.73m2 . The eGFR declines with age. An eGFR of 60-89 may be normal in some populations, particularly the elderly, for whom the CKD-EPI formula has not been extensively validated. Use of the eGFR is not recommended in the following populations:< br/>
Anabela viduals with unstable creatinine concentration s, including patients and those with serious co-morbid conditions.<b r/>
Patie nts with extremes in muscle mass or diet.

The data above are obtained from the National Kidney Disease Education Program (NKDEP) which additionally recommends that when the eGFR is used in patients with extremes of body mass index for purposes of drug dosing, the eGFR should be multiplied by the estimated BMI. CHEM PANEL AGAP 15.0 10.0 - 04/07 MH 20.0 /2015 [facility] CHEM PANEL Bili Total 0.2 0.2 - 1.3 04/07 [facility] CHEM PANEL A/G Ratio 0.6 0.7 - 1.6 04/07 [facility] CHEM PANEL Globulin 5.4 2.0 - 4.0 04/07 [facility] CHEM PANEL B/C Ratio 12 6 - 25 04/07 [facility] CHEM PANEL Alk Phos 107 39 - 136 04/07 [facility] CHEM PANEL ALT 24 0 - 65 04/07 [facility] CHEM PANEL AST 19 0 - 37 04/07 [facility] CHEM PANEL CO2 24 24 - 32 04/07 [facility] CHEM PANEL Calcium Lvl 9.5 8.5 - 10.5 04/07 [facility] CHEM PANEL Total 8.4 6.4 - 8.4 04/07 MH Protein /2015 [facility] CHEM PANEL BUN 9 7 - 22 04/07 /2015 [facility] CHEM PANEL Albumin Lvl 3.0 3.5 - 5.0 04/07 [facility] CHEM PANEL Creatinine 0.75 0.50 - 04/07 MH Lvl 1.40 /2015 [facility] CHEM PANEL Sodium Lvl 139 135 - 145 04/07 [facility] CHEM PANEL Potassium 4.0 3.5 - 5.1 04/07 Lvl /2015 [facility] CHEM PANEL Chloride Lvl 104 95 - 109 04/07 [facility] CHEM PANEL Glucose Lvl 118 70 - 99 04/07 [facility] HEMATOLOGY Hgb 9.2 12.0 - 04/07 16.0 /2015 [facility] HEMATOLOGY MCV 71.0 80.0 - 04/07 98.0 /2015 [facility] HEMATOLOGY MCH 21.4 27.0 - 04/07 31.0 /2015 [facility] HEMATOLOGY Platelet 280 133 - 450 04/07 [facility] HEMATOLOGY MPV 8.0 7.4 - 10.4 04/07 [facility] HEMATOLOGY RDW 18.0 11.5 - 04/07 14.5 /2015 [facility] HEMATOLOGY MCHC 30.1 32.0 - 04/07 36.0 /2015 [facility] HEMATOLOGY WBC 9.0 3.7 - 10.4 04/07 /2015 [facility] HEMATOLOGY RBC 4.30 4.20 - 04/07 MH 5.40 /2015 [facility] HEMATOLOGY Hct 30.5 36.0 - 04/07 48.0 /2016 [facility] HEMATOLOGY Segs 84.7 45.0 - 04/07 75.0 /2015 [facility] HEMATOLOGY Lymphocytes 9.4 20.0 - 04/07 MH 40.0 /2015 [facility] HEMATOLOGY Eosinophils 0.0 0.0 - 0.5 04/07 MH # /2016 [facility] HEMATOLOGY Lymphocytes 0.8 1.0 - 5.5 04/07 MH # /2015 [facility] HEMATOLOGY Monocytes # 0.5 0.0 - 0.8 04/07 [facility] HEMATOLOGY Segs-Bands # 7.6 1.5 - 8.1 04/07 [facility] HEMATOLOGY Monocytes 5.4 2.0 - 12.0 04/07 [facility] HEMATOLOGY Eosinophils 0.3 0.0 - 4.0 04/07 [facility] HEMATOLOGY Basophils 0.2 0.0 - 1.0 04/07 [facility] HEMATOLOGY Basophils # 0.0 0.0 - 0.2 04/07 [facility] CARDIAC CK MB Index 0.4 0.0 - 2.5 11/06 ENZYMES [facility] CARDIAC CK MB 0.6 0.5 - 3.6 11/06 ENZYMES [facility] CARDIAC Troponin-I <0.02 0.00 - 11/06 ENZYMES 0.40 /2014 [facility] CARDIAC Total CK 136 12 - 191 11/06 ENZYMES [facility] ELECTROLYT Potassium 4.4 3.5 - 5.1 11/06 ES Lvl [facility] ELECTROLYT Sodium Lvl 139 135 - 145 11/06 ES [facility] ELECTROLYT Chloride Lvl 107 95 - 109 11/06 ES [facility] ELECTROLYT eGFR 107 11/06 Result Comment: The [facility] eGFR is calculated using the CKD-EPI formula. In most young, healthy individuals the eGFR will be >90 mL/min/1.73m2 . The eGFR declines with age. An eGFR of 60-89 may be normal in some populations, particularly the elderly, for whom the CKD-EPI formula has not been extensively validated. Use of the eGFR is not recommended in the following populations:< br/>
Anabela viduals with unstable creatinine concentration s, including patients and those with serious co-morbid conditions.<b r/>
Patie nts with extremes in muscle mass or diet.

The data above are obtained from the National Kidney Disease Education Program (NKDEP) which additionally recommends that when the eGFR is used in patients with extremes of body mass index for purposes of drug dosing, the eGFR should be multiplied by the estimated BMI. ELECTROLYT CO2 20 24 - 32 11/06 ES [facility] ELECTROLYT Calcium Lvl 9.5 8.5 - 10.5 11/06 ES [facility] ELECTROLYT Total 7.7 6.4 - 8.4 11/06 ES Protein [facility] ELECTROLYT Albumin Lvl 2.9 3.5 - 5.0 11/06 [facility] ELECTROLYT ALT 21 0 - 65 11/06 ES [facility] ELECTROLYT AST 27 0 - 37 11/06 ES [facility] ELECTROLYT Alk Phos 81 39 - 136 11/06 ES [facility] ELECTROLYT Bili Total 0.4 0.2 - 1.3 11/06 ES /2014 [facility] ELECTROLYT Creatinine 0.8 0.5 - 1.4 11/06 ES Lvl /2014 [facility] ELECTROLYT Glucose Lvl 88 70 - 99 11/06 ES /2014 [facility] ELECTROLYT BUN 7 7 - 22 11/06 ES /2014 [facility] ELECTROLYT AGAP 16.4 10.0 - 11/06 ES 20.0 /2014 [facility] ELECTROLYT B/C Ratio 9 6 - 25 11/06 ES /2014 [facility] ELECTROLYT Globulin 4.8 2.0 - 4.0 11/06 ES /2014 [facility] ELECTROLYT A/G Ratio 0.6 0.7 - 1.6 11/06 ES /2014 [facility] HEMATOLOGY Segs 54.4 45.0 - 11/06 75.0 /2014 [facility] HEMATOLOGY Lymphocytes 31.6 20.0 - 11/06 MH 40.0 /2014 [facility] HEMATOLOGY Basophils 0.9 0.0 - 1.0 11/06 /2014 [facility] HEMATOLOGY Segs-Bands # 2.8 1.5 - 8.1 11/06 /2014 [facility] HEMATOLOGY Monocytes 10.8 2.0 - 12.0 11/06 /2014 [facility] HEMATOLOGY Eosinophils 0.1 0.0 - 0.5 11/06 MH /2014 [facility] HEMATOLOGY Eosinophils 2.3 0.0 - 4.0 11/06 /2014 [facility] HEMATOLOGY Microcyte 3+ None Seen 11/06 *NA* /2014 [facility] (11/06/14 4:19 AM) HEMATOLOGY Lymphocytes 1.6 1.0 - 5.5 11/06 MH # /2015 [facility] HEMATOLOGY Monocytes # 0.6 0.0 - 0.8 11/06 /2014 [facility] HEMATOLOGY MCHC 30.6 32.0 - 11/06 MH 36.0 /2014 [facility] HEMATOLOGY MPV 8.2 7.4 - 10.4 11/06 /2014 [facility] HEMATOLOGY RDW 17.5 11.5 - 11/06 14. [facility] HEMATOLOGY Platelet 257 133 - 450 11/06 /2014 [facility] HEMATOLOGY RBC 4.00 4.20 - 11/06 MH 5.40 /2014 [facility] HEMATOLOGY Hgb 8.4 12.0 - 11/06 MH 16.0 [facility] HEMATOLOGY MCH 21.1 27.0 - 11/06 MH 31.0 /2014 [facility] HEMATOLOGY Hct 27.6 36.0 - 11/06 48.0 /2014 [facility] HEMATOLOGY MCV 68.8 80.0 - 11/06 98.0 /2014 [facility] HEMATOLOGY WBC 5.1 3.7 - 10.4 11/06 /2014 [facility] ANEMIA RBC Folate 1058 280 - 791 11/06 STUDY /2014 [facility] ANEMIA Folate Lvl 10.4 >=3.0 11/06 STUDY ng/mL /2014 [facility] ANEMIA Vitamin B12 567 254 - 1320 11/06 STUDY Lvl /2014 [facility] ANEMIA TIBC 434 228 - 428 11/06 STUDY [facility] ANEMIA Iron 15 30 - 160 11/06 STUDY /2014 [facility] ANEMIA % Satur Fe 3 12 - 57 11/06 STUDY /2014 [facility] ANEMIA UIBC 419 110 - 370 11/06 STUDY /2014 [facility] ANEMIA Ferritin Lvl 2 5 - 204 11/06 STUDY /2014 [facility] CHEM PANEL LDH 114 98 - 192 11/06 [facility] HEMATOLOGY Retic Auto 1.7 0.5 - 1.5 11/06 [facility] IMMUNOLOGY Homocyst Tot 12.8 3.7 - 13.9 11/06 [facility] URINE AND Occult Bld Negative Negative 11/05 STOOL [facility] (11/05/14 5:15 PM) /2014 [facility] BLOOD BANK ABO/Rh B POS 11/05 Result RESULTS /2014 Comment: [facility] 11/05/2014 16:43 SEPATEL
n otify to [facility] 11/05/2014 16:43 by sp BLOOD BANK Antibody Negative 11/05 RESULTS [facility] (11/05/14 4:23 PM) /2014 [facility] CARDIAC CK MB <0.5 0.5 - 3.6 11/05 ENZYMES /2014 [facility] CARDIAC Troponin-I <0.02 0.00 - 11/05 ENZYMES 0.40 /2014 [facility] CARDIAC Total CK 148 12 - 191 11/05 ENZYMES /2014 [facility] CARDIAC CK MB Index <0.3 0.0 - 2.5 11/05 ENZYMES /2014 [facility] CHEM PANEL eGFR 104 11/05 Result Comment: The [facility] eGFR is calculated using the CKD-EPI formula. In most young, healthy individuals the eGFR will be >90 mL/min/1.73m2 . The eGFR declines with age. An eGFR of 60-89 may be normal in some populations, particularly the elderly, for whom the CKD-EPI formula has not been extensively validated. Use of the eGFR is not recommended in the following populations:< br/>
Anabela viduals with unstable creatinine concentration s, including patients and those with serious co-morbid conditions.<b r/>
Patie nts with extremes in muscle mass or diet.

The data above are obtained from the National Kidney Disease Education Program (NKDEP) which additionally recommends that when the eGFR is used in patients with extremes of body mass index for purposes of drug dosing, the eGFR should be multiplied by the estimated BMI. CHEM PANEL CO2 27 24 - 32 11/05 [facility] CHEM PANEL Calcium Lvl 9.8 8.5 - 10.5 11/05 [facility] CHEM PANEL Bili Total 0.3 0.2 - 1.3 11/05 [facility] CHEM PANEL BUN 7 7 - 22 11/05 [facility] CHEM PANEL Glucose Lvl 87 70 - 99 11/05 [facility] CHEM PANEL Sodium Lvl 138 135 - 145 11/05 [facility] CHEM PANEL Chloride Lvl 104 95 - 109 11/05 [facility] CHEM PANEL Potassium 3.5 3.5 - 5.1 11/05 MH Lvl [facility] CHEM PANEL Creatinine 0.8 0.5 - 1.4 11/05 Lvl [facility] CHEM PANEL Total 8.2 6.4 - 8.4 11/05 [facility] CHEM PANEL AST 17 0 - 37 11/05 [facility] CHEM PANEL Globulin 5.0 2.0 - 4.0 11/05 [facility] CHEM PANEL A/G Ratio 0.6 0.7 - 1.6 11/05 [facility] CHEM PANEL B/C Ratio 9 6 - 25 11/05 [facility] CHEM PANEL AGAP 10.5 10.0 - 11/05 MH 20.0 /2014 [facility] CHEM PANEL Alk Phos 83 39 - 136 11/05 [facility] CHEM PANEL Albumin Lvl 3.2 3.5 - 5.0 11/05 [facility] CHEM PANEL ALT 18 0 - 65 11/05 [facility] HEMATOLOGY PTT 29.7 22.9 - 11/05 MH 35.8 /2015 [facility] HEMATOLOGY PT 15.1 12.0 - 0813 MH 14.7 /2014 [facility] HEMATOLOGY INR 1.18 0.85 - 11/05 MH 1.17 /2014 [facility] HEMATOLOGY WBC 5.0 3.7 - 10.4 11/05 /2014 [facility] HEMATOLOGY RBC 4.01 4.20 - 11/05 MH 5.40 /2014 [facility] HEMATOLOGY Hgb 8.2 12.0 - 11/05 MH 16.0 /2014 [facility] HEMATOLOGY MPV 7.6 7.4 - 10.4 11/05 /2014 [facility] HEMATOLOGY RDW 17.2 11.5 - 11/05 MH 14.5 /2014 [facility] HEMATOLOGY Platelet 281 133 - 450 11/05 /2014 [facility] HEMATOLOGY MCH 20.4 27.0 - 11/05 31.0 /2014 [facility] HEMATOLOGY MCHC 29.8 32.0 - 11/05 36.0 /2014 [facility] HEMATOLOGY MCV 68.4 80.0 - 11/05 98.0 /2014 [facility] HEMATOLOGY Hct 27.4 36.0 - 11/05 48.0 /2014 [facility] HEMATOLOGY Segs 63.4 45.0 - 11/05 75.0 /2014 [facility] HEMATOLOGY Hypochrom 1+ None Seen 11/05 (11/05/14 3:02 PM) /2014 [facility] HEMATOLOGY Monocytes 10.2 2.0 - 12.0 11/05 /2014 [facility] HEMATOLOGY Eosinophils 1.5 0.0 - 4.0 11/05 /2014 [facility] HEMATOLOGY Basophils 0.3 0.0 - 1.0 11/05 /2014 [facility] HEMATOLOGY Lymphocytes 24.6 20.0 - 11/05 40.0 /2014 [facility] HEMATOLOGY Plt Morph Normal 11/05 (11/05/14 3:02 PM) /2014 [facility] HEMATOLOGY RBC Morph See Note 11/05 (11/05/14 3:02 PM) /2014 [facility] HEMATOLOGY Lymphocytes 1.2 1.0 - 5.5 11/05 # /2014 [facility] HEMATOLOGY Monocytes # 0.5 0.0 - 0.8 11/05 /2014 [facility] HEMATOLOGY Segs-Bands # 3.2 1.5 - 8.1 11/05 /2014 [facility] HEMATOLOGY Microcyte 3+ None Seen 11/05 *NA* /2014 [facility] (11/05/14 3:02 PM) HEMATOLOGY Eosinophils 0.1 0.0 - 0.5 11/05 # [facility] URINE AND UA Leuk Est Small Negative 11/03 STOOL *ABN* [facility] (11/03/14 1:07 PM) URINE AND UA Ketones Negative Negative 11/03 STOOL *NA* [facility] (11/03/14 1:07 PM) URINE AND UA Turbidity Cloudy Clear 11/03 STOOL *ABN* (11/03/14 1:07 PM) URINE AND UA Spec Grav 1.010 <=1.030 11/03 [facility] [place] URINE AND UA Protein Trace Negative 11/03 STOOL *ABN* [facility] (11/03/14 1:07 PM) URINE AND UA pH 7.5 5.0 - 8.0 11/03 [facility] URINE AND UA Color Yellow Yellow 11/03 STOOL *NA* [facility] (11/03/14 1:07 PM) URINE AND UA Glucose Negative Negative 11/03 STOOL (11/03/14 1:07 PM) /2014 [facility] URINE AND UA Blood Negative Negative 11/03 [facility] (11/03/14 1:07 PM) [facility] URINE AND UA Bili Negative Negative 11/03 STOOL *NA* [facility] (11/03/14 1:07 PM) URINE AND UA 1.0 0.1 - 1.0 11/03 STOOL Urobilinogen /2014 URINE AND UA Nitrite Negative Negative 11/03 [facility] (11/03/14 1:07 PM) [facility] URINE AND UA RBC 0-2 /HPF 0 - 2 11/03 STOOL [facility] URINE AND UA WBC 11-20 /HPF None Seen 11/03 STOOL /HPF /2014 URINE AND UA Sq Epi Few /LPF Few /LPF 11/03 STOOL [facility] URINE AND UA Bacteria Many /HPF None Seen 11/03 STOOL /HPF /2014 [facility] URINE CHEM U Preg Negative Negative 11/03 (11/03/14 1:07 PM) [facility] CARDIAC Troponin-I <0.02 0.00 - 11/03 ENZYMES 0.40 [facility] CARDIAC Troponin-I <0.02 0.00 - 11/03 ENZYMES 0.40 /2014 [facility] CARDIAC Total CK 196 12 - 191 11/03 ENZYMES [facility] CARDIAC CK MB 0.5 0.5 - 3.6 11/03 ENZYMES [facility] CARDIAC proBNP 18 0 - 125 11/03 ENZYMES [facility] CARDIAC CK MB Index 0.3 0.0 - 2.5 11/03 ENZYMES [facility] CHEM PANEL eGFR 111 11/03 Result Comment: The [facility] eGFR is calculated using the CKD-EPI formula. In most young, healthy individuals the eGFR will be >90 mL/min/1.73m2 . The eGFR declines with age. An eGFR of 60-89 may be normal in some populations, particularly the elderly, for whom the CKD-EPI formula has not been extensively validated. Use of the eGFR is not recommended in the following populations:< br/>
Anabela viduals with unstable creatinine concentration s, including patients and those with serious co-morbid conditions.<b r/>
Patie nts with extremes in muscle mass or diet.

The data above are obtained from the National Kidney Disease Education Program (NKDEP) which additionally recommends that when the eGFR is used in patients with extremes of body mass index for purposes of drug dosing, the eGFR should be multiplied by the estimated BMI. CHEM PANEL Chloride Lvl 103 95 - 109 11/03 [facility] CHEM PANEL BUN 6 7 - 22 11/03 [facility] CHEM PANEL Creatinine 0.8 0.5 - 1.4 11/03 Lvl [facility] CHEM PANEL Sodium Lvl 138 135 - 145 11/03 [facility] CHEM PANEL Potassium 3.7 3.5 - 5.1 11/03 Lvl [facility] CHEM PANEL Calcium Lvl 9.5 8.5 - 10.5 11/03 [facility] CHEM PANEL Total 8.2 6.4 - 8.4 11/03 Protein [facility] CHEM PANEL CO2 28 24 - 32 11/03 [facility] CHEM PANEL Bili Total 0.5 0.2 - 1.3 11/03 [facility] CHEM PANEL AGAP 10.7 10.0 - 11/03 MH 20.0 /2014 [facility] CHEM PANEL B/C Ratio 8 6 - 25 11/03 [facility] CHEM PANEL Globulin 5.0 2.0 - 4.0 11/03 [facility] CHEM PANEL A/G Ratio 0.6 0.7 - 1.6 11/03 [facility] CHEM PANEL AST 16 0 - 37 11/03 [facility] CHEM PANEL Glucose Lvl 88 70 - 99 11/03 /2014 [facility] CHEM PANEL ALT 20 0 - 65 11/03 /2014 [facility] CHEM PANEL Albumin Lvl 3.2 3.5 - 5.0 11/03 /2014 [facility] CHEM PANEL Alk Phos 85 39 - 136 11/03 Result Comment: [facility] Called Jane Giles at 11/03/2014 16:58 by RP.
[place]cam[place] issue, unable to run ISABELA earlier today. 11/03/2014 16:56 RP. HEMATOLOGY Basophils 0.8 0.0 - 1.0 11/03 /2014 [facility] HEMATOLOGY Lymphocytes 1.3 1.0 - 5.5 11/03 MH # /2014 [facility] HEMATOLOGY Segs-Bands # 2.4 1.5 - 8.1 11/03 /2014 [facility] HEMATOLOGY Monocytes # 0.4 0.0 - 0.8 11/03 /2014 [facility] HEMATOLOGY Microcyte 3+ None Seen 11/03 MH *NA* /2014 [facility] (11/03/14 9:00 AM) HEMATOLOGY Eosinophils 0.1 0.0 - 0.5 11/03 MH # /2015 [facility] HEMATOLOGY Segs 57.0 45.0 - 11/03 MH 75.0 [facility] HEMATOLOGY Lymphocytes 30.7 20.0 - 11/03 MH 40.0 /2014 [facility] HEMATOLOGY Eosinophils 1.7 0.0 - 4.0 11/03 /2014 [facility] HEMATOLOGY Monocytes 9.8 2.0 - 12.0 11/03 /2014 [facility] HEMATOLOGY Plt Morph Normal 11/03 (11/03/14 9:00 AM) /2014 [facility] HEMATOLOGY MPV 7.6 7.4 - 10.4 11/03 /2014 [facility] HEMATOLOGY Platelet 259 133 - 450 11/03 /2014 [facility] HEMATOLOGY MCH 20.5 27.0 - 11/03 MH 31.0 /2014 [facility] HEMATOLOGY MCHC 30.3 32.0 - 11/03 MH 36.0 /2014 [facility] HEMATOLOGY RDW 17.4 11.5 - 11/03 MH 14.5 [facility] HEMATOLOGY Hgb 8.1 12.0 - 11/03 MH 16.0 [facility] HEMATOLOGY Hct 26.7 36.0 - 11/03 MH 48.0 /2014 [facility] HEMATOLOGY MCV 67.6 80.0 - 11/03 MH 98.0 /2014 [facility] HEMATOLOGY RBC 3.95 4.20 - 08 MH 5.40 /2014 [facility] HEMATOLOGY WBC 4.2 3.7 - 10.4 11/03 [facility] HEMATOLOGY D-Dimer 0.27 11/03 [facility] CHEMISTRY U Preg Negative Negative 03/07 Normal (03/07/2013 15:55:00) [facility] URINALYSIS UA Bili Negative Negative 03/07 *NA* [facility] (03/07/2013 15:55:00) URINALYSIS UA Blood Negative Negative 03/07 Normal (03/07/2013 15:55:00) [facility] URINALYSIS UA Ketones Negative Negative 03/07 *NA* [facility] (03/07/2013 15:55:00) URINALYSIS UA Protein Trace Negative 03/07 ABN *ABN* [facility] (03/07/2013 15:55:00) URINALYSIS UA Glucose Negative Negative 03/07 Normal (03/07/2013 15:55:00) [facility] URINALYSIS UA pH 7.5 5.0 - 8.0 03/07 Normal [facility] URINALYSIS UA Nitrite Negative Negative 03/07 Normal (03/07/2013 15:55:00) [facility] URINALYSIS UA 1.0 0.1 - 1.0 03/07 Normal Urobilinogen [facility] URINALYSIS UA Leuk Est Negative Negative 03/07 Normal (03/07/2013 15:55:00) [facility] URINALYSIS UA Spec Grav 1.015 <=1.030 03/07 Normal [facility] URINALYSIS UA Color Yellow Yellow 03/07 *NA* [facility] (03/07/2013 15:55:00) URINALYSIS UA Turbidity Clear Clear 03/07 Normal (03/07/2013 15:55:00) [facility] URINALYSIS UA Sq Epi Few /LPF Few 03/07 Normal [facility] URINALYSIS Micro? Performed 03/07 Normal (03/07/2013 15:55:00) [facility] URINALYSIS UA Bacteria Occasional None Seen 03/07 Normal /HPF [facility] CHEMISTRY CK-MB INDEX 0.2 0.0 - 2.5 03/07 Normal [facility] CHEMISTRY Lactic Acid 1.9 0.5 - 2.2 03/07 Normal Lvl [facility] CHEMISTRY CK MB 1.1 0.5 - 3.6 03/07 Normal [facility] CHEMISTRY Troponin-I <0.02 0.00 - 03/07 Normal 0.40 /2012 [facility] CHEMISTRY eGFR 82 03/07 <sup>2</sup>R /2012 esult [facility] Comment: The eGFR is calculated using the CKD-EPI formula. In most young, healthy individuals the eGFR will be >90 mL/min/1.73m2 . The eGFR declines with age. An eGFR of 60-89 may be normal in some populations, particularly the elderly, for whom the CKD-EPI formula has not been extensively validated. Use of the eGFR is not recommended in the following populations:& lt;br/>
I ndividuals with unstable creatinine concentration s, including patients and those with serious co-morbid conditions.<b r/>
Patie nts with extremes in muscle mass or diet.

The data above are obtained from the National Kidney Disease Education Program (NKDEP) which additionally recommends that when the eGFR is used in patients with extremes of body mass index for purposes of drug dosing, the eGFR should be multiplied by the estimated BMI. CHEMISTRY BUN 7 7 - 22 03/07 Normal [facility] CHEMISTRY Potassium 3.9 3.5 - 5.1 03/07 Normal Lvl [facility] CHEMISTRY Calcium Lvl 9.6 8.5 - 10.5 03/07 Normal [facility] CHEMISTRY AGAP 12.9 10.0 - 03/07 Normal 20.0 [facility] CHEMISTRY Glucose Lvl 131 70 - 99 03/07 HI <sup>3</sup>I nterpretive [facility] Data: Adult reference range values reflect the clinical guidelines
of the [place] [employer]. CHEMISTRY Chloride Lvl 102 95 - 109 03/07 Normal [facility] CHEMISTRY CO2 24 24 - 32 03/07 Normal [facility] CHEMISTRY Creatinine 0.9 0.5 - 1.4 03/07 Normal Lvl [facility] CHEMISTRY Sodium Lvl 135 135 - 145 03/07 Normal [facility] CHEMISTRY Total CK 469 12 - 191 03/07 HI [facility] VIRAL - Influ A Negative Negative 03/07 Normal SEROLOGY (03/07/2013 09:45:37) [facility] VIRAL - Influ B Negative 1 Negative 03/07 Normal <sup>1</sup>I SEROLOGY (03/07/2013 09:45:37) nterpretive [facility] Data: Influenza A&B Antigen:
Due to the low sensitivity of this test a negative result does not exclude influenza virus infection. A diagnosis of influenza should be considered based on a patient's clinical presentation and empiric antiviral treatment should be considered, if indicated. If more conclusive testing is desired, follow-up confirmatory testing with either viral culture or PCR is warranted. HEMATOLOGY Eosinophils 0.1 0.0 - 4.0 03/07 Normal MH /2012 [facility] HEMATOLOGY Basophils 0.0 0.0 - 1.0 03/07 Normal MH /2012 [facility] HEMATOLOGY Target Cell Slight None Seen 03/07 ABN MH *ABN* /2012 [facility] (03/07/2013 09:45:00) HEMATOLOGY Elliptocyte Slight None Seen 03/07 ABN *ABN* /2012 [facility] (03/07/2013 09:45:00) HEMATOLOGY Plt Morph Normal 03/07 Normal (03/07/2013 09:45:00) [facility] HEMATOLOGY Basophils # 0.0 0.0 - 0.2 03/07 Normal /2012 [facility] HEMATOLOGY Microcyte 1+ None Seen 03/07 ABN *ABN* /2012 [facility] (03/07/2013 09:45:00) HEMATOLOGY Lymphocytes 0.2 1.0 - 5.5 03/07 LOW MH # /2012 [facility] HEMATOLOGY Eosinophils 0.0 0.0 - 0.5 03/07 Normal MH # /2013 [facility] HEMATOLOGY Monocytes # 0.4 0.0 - 0.8 03/07 Normal MH /2012 [facility] HEMATOLOGY Segs-Bands # 6.7 1.5 - 8.1 03/07 Normal MH /2012 [facility] HEMATOLOGY Segs 91.4 45.0 - 03/07 HI MH 75.0 /2012 [facility] HEMATOLOGY Lymphocytes 3.3 20.0 - 12 LOW MH 40.0 /2012 [facility] HEMATOLOGY Monocytes 5.2 2.0 - 12.0 03/07 Normal MH /2012 [facility] HEMATOLOGY Polychrom Slight None Seen 03/07 Normal (03/07/2013 09:45:00) [facility] HEMATOLOGY Hypochrom Slight None Seen 03/07 Normal (03/07/2013 09:45:00) [facility] HEMATOLOGY RBC X 10x6 3.99 4.20 - 12 LOW MH 5.40 /2012 [facility] HEMATOLOGY Hgb 8.3 12.0 - 12 LOW MH 16.0 /2012 [facility] HEMATOLOGY WBC X 10x3 7.3 3.7 - 10.4 03/07 Normal /2012 [facility] HEMATOLOGY Platelet 305 133 - 450 03/07 Normal [facility] RDW 17.9 11.5 - 03/07 HI MH 14.5 /2012 [facility] HEMATOLOGY Hct 26.1 36.0 - 03/07 LOW MH 48.0 /2012 [facility] HEMATOLOGY MCH 20.7 27.0 - 12 LOW MH 31.0 /2012 [facility] HEMATOLOGY MCV 65.4 81.0 - 03/07 LOW MH 99.0 /2012 [facility] HEMATOLOGY MCHC 31.7 32.0 - 03/07 LOW MH 36.0 /2012 [facility] MPV 8.0 7.4 - 10.4 03/07 Normal [facility] Pathology Reports No Data Provided for This Section Diagnostic Reports Report Value Date Source Chest 2 views DX EXAM: XR CHEST 2 VIEWS 03/29/2018 [facility] DATE: 03/29/2018 15:02 [facility] INDICATION: - chest pain COMPARISON: Radiograph dated 11/17/2017 at 0027 hours TECHNIQUE: Upright PA and lateral chest radiographs FINDINGS: No pulmonary or pleural-based abnormality is identified. The heart size is normal. No acute bony abnormality is identified. IMPRESSION: No acute cardiopulmonary abnormality. ID SECTION: ER Chest 1view DX Clinical Indication: - weakness 11/16/2017 [facility] Comparison: 10/31/2017 FINDINGS: AP chest radiograph was obtained. MEDIASTINUM: The cardiac silhouette is normal in size. The aorta is unremarkable. LUNGS: Lung volumes are maintained. There are no focal infiltrates or effusions. There are no pneumothoraces noted. BONES: The visualized osseous structures are unremarkable. IMPRESSION: No acute infiltrates or effusions. SL: [id number] Abdomen AP DX Clinical Indication: - weakness 11/16/2017 [facility] Comparison: None FINDINGS: The AP supine view of the abdomen shows a non-obstructive bowel gas pattern. There is no abnormal dilatation of bowel loops. There is no pneumatosis or mass effect. There is no gross evidence for pneumo peritoneum. There are no radiopaque densities noted. There are no clinically significant osseous abnormalities noted. There are radiopacities overlying the transverse colon and left kidney, these may represent colonic contents or renal calculi. IMPRESSION: 1. Unremarkable abdomen. SL: [id number] Chest 1view DX Clinical Indication: CVA - cva 10/31/2017 [facility] Comparison: 10/25/2017 FINDINGS: Single AP view of the chest is submitted for interpretation. The lungs are clear and there are no effusions. There is no visible pneumothorax. Cardiomediastinal contours are within normal limits. No gross bony normalities are identified. IMPRESSION: 1. No radiographic evidence of acute cardiopulmonary process. SL: [id number] Brain Stroke wo Patient Name: ATIF YOUNG 10/31/2017 [facility] contrast CT : 1975; Age: 42 years y/o Female MR: [id number] Study: Brain Stroke wo contrast CT 10/31/2017 [...] intracranial process. Findings are discussed with Dr. Sahikh in the ED at 3:28 PM on 10/31/2017. If there is further concern for intracranial pathology or acute stroke, further assessment with an MRI of the brain should be considered. SL: [id number] Abdomen RUQ US RIGHT UPPER QUADRANT ABDOMINAL ULTRASOUND DATED 10/26/201705/2017 [facility] CLINICAL INDICATION: Acute epigastric abdominal pain. Nausea and vomiting. COMPARISON: CT abdomen dated 10/13/2017 TECHNIQUE: Sonographic [...] cholelithiasis or acute cholecystitis. SL:131 Chest 2 views DX Clinical Indication: - chest pain; 10/25/2017 [facility] Comparison: None FINDINGS: The PA and lateral chest radiographs shows normal lung volumes without interstitial or airspace opacities, pleural effusions or pneumothorax. The heart size and pulmonary vasculature are normal. The trachea is midline. There are no clinically significant osseous abnormalities noted. IMPRESSION: No chest radiographic evidence of acute cardiopulmonary disease. SL: JSYED-M ED Abdomen/Pelvis IV Clinical Indication: - rlq abd pain. 10/13/2017 [facility] contrast only CT Comparison: 08/24/2006. TECHNIQUE: Helical imaging was performed from diaphragm through the symphysis with coronal and sagittal reconstructions. CT imaging was performed with exposure control parameters to reduce radiation dose. IV CONTRAST: 100 cc Omnipaque. GI CONTRAST: No CT Radiation Dose: KXJ=436.82 mGy-cm FINDINGS: LOWER CHEST: Visualized aspects of [...] proximal left ureter without radiopaque stone. SL: OH[place]ON-M Chest 2 views DX Patient Name: ATIF YOUNG 03/17/2016 [facility] : 1975; Age: 40 years y/o Female MR: [id number] * CHEST, 2 views HISTORY: Cough and [...] No active disease. 2. Borderline cardiomegaly. SL: [place]- Abdomen AP DX Patient Name: ATIF YOUNG 03/17/2016 [facility] : 1975; Age: 40 years y/o Female MR: [id number] * ABDOMEN, 1 view HISTORY: Acute generalized [...] IMPRESSION: 1. Benign appearance the abdomen. SL: [id number] Chest 1view DX Chest one view: 04/07/2015 [facility] Exam reason: Chest pain. The cardiomediastinal silhouette is accentuated by suboptimal inspiratory effort, portable technique and positional obliquity. Lungs are clear. There is no consolidation or pleural fluid collection. SL:14 Chest 2 views DX PROCEDURE: Chest 2 views 11/03/2014 [facility] CLINICAL INDICATION: Chest pain COMPARISON: March 07, 2013. 09/2006. 07/2006 multiple x-rays. FINDINGS: There is blunting of the right costophrenic angle secondary to atelectasis or small pleural effusion. Enlarged cardiac silhouette. There is no pneumothorax. There is no free air under the diaphragm. The visualized osseous structures are normal for soft tissue technique. SL: 16 Chest 2 views CHEST 2 VIEWS 03/07/2013 [facility] HX: Fever COMPARISON: 10/05/2006 FINDINGS: The lungs are free of consolidation or pleural effusion and the mediastinal silhouette is within normal limits of size. The visualized osseous structures are grossly negative. IMPRESSION: Negative chest. SL: 15 Consultation Notes No Data Provided for This Section Discharge Summaries No Data Provided for This Section History and Physicals No Data Provided for This Section Vital Signs Vital Sign Value Date Comments Source Heart Rate 85 11/17/2017 [facility] Systolic (mm Hg) 128 11/17/2017 [facility] Diastolic (mm Hg) 74 11/17/2017 [facility] Temperature Oral (F) 98 F 11/17/2017 [facility] Respitory Rate 18 11/17/2017 [facility] Heart Rate 80 11/17/2017 [facility] Respitory Rate 18 11/17/2017 [facility] Systolic (mm Hg) 130 11/17/2017 [facility] Diastolic (mm Hg) 80 11/17/2017 [facility] Weight 68.182 11/17/2017 [facility] Heart Rate 87 11/17/2017 [facility] Respitory Rate 18 11/17/2017 [facility] Temperature Oral (F) 98 F 11/17/2017 [facility] Systolic (mm Hg) 137 11/17/2017 [facility] Diastolic (mm Hg) 88 11/17/2017 [facility] Temperature Oral (F) 98.4 F 10/31/2017 [facility] Systolic (mm Hg) 120 10/31/2017 [facility] Diastolic (mm Hg) 71 10/31/2017 [facility] Respitory Rate 15 10/31/2017 [facility] Temperature Oral (F) 98.8 F 10/31/2017 [facility] Systolic (mm Hg) 124 10/31/2017 [facility] Diastolic (mm Hg) 87 10/31/2017 [facility] Respitory Rate 17 10/31/2017 [facility] Systolic (mm Hg) 119 10/31/2017 [facility] Diastolic (mm Hg) 75 10/31/2017 [facility] Respitory Rate 19 10/31/2017 [facility] BMI Calculated 27.25 10/31/2017 [facility] Weight 72 10/31/2017 [facility] Height 162.56 cm 10/31/2017 [facility] Temperature Oral (F) 99.6 F 10/31/2017 [facility] Heart Rate 93 10/31/2017 [facility] Systolic (mm Hg) 128 10/26/2017 [facility] Diastolic (mm Hg) 80 10/26/2017 [facility] Respitory Rate 18 10/26/2017 [facility] Heart Rate 80 10/26/2017 [facility] Temperature Oral (F) 98.2 F 10/26/2017 [facility] Weight 77.273 10/26/2017 [facility] Respitory Rate 19 10/26/2017 [facility] Heart Rate 82 10/26/2017 [facility] Temperature Oral (F) 98.2 F 10/26/2017 [facility] Systolic (mm Hg) 130 10/26/2017 [facility] Diastolic (mm Hg) 89 10/26/2017 [facility] Heart Rate 71 10/13/2017 [facility] Respitory Rate 20 10/13/2017 [facility] Systolic (mm Hg) 105 10/13/2017 [facility] Diastolic (mm Hg) 72 10/13/2017 [facility] Temperature Oral (F) 98.2 F 10/13/2017 [facility] Temperature Oral (F) 98.2 F 10/13/2017 [facility] Heart Rate 74 10/13/2017 [facility] Systolic (mm Hg) 102 10/13/2017 [facility] Diastolic (mm Hg) 71 10/13/2017 [facility] Respitory Rate 20 10/13/2017 [facility] Weight 76 10/13/2017 [facility] BMI Calculated 28.76 10/13/2017 [facility] Height 162.56 cm 10/13/2017 [facility] Systolic (mm Hg) 109 10/13/2017 [facility] Diastolic (mm Hg) 77 10/13/2017 [facility] Heart Rate 85 10/13/2017 [facility] Respitory Rate 16 10/13/2017 [facility] Temperature Oral (F) 98.4 F 10/13/2017 [place] Heart Rate 58 05/02/2016 [place] Systolic (mm Hg) 93 05/02/2016 [facility] [place] Diastolic (mm Hg) 61 05/02/2016 [place] Respitory Rate 18 05/02/2016 [place] Temperature Oral (F) 98.2 F 05/02/2016 [place] Systolic (mm Hg) 85 05/02/2016 [place] Diastolic (mm Hg) 55 05/02/2016 [place] Heart Rate 69 05/02/2016 [facility] [place] Respitory Rate 18 05/02/2016 [place] Temperature Oral (F) 98.9 F 05/02/2016 [place] Systolic (mm Hg) 101 05/02/2016 [facility] [place] Diastolic (mm Hg) 60 05/02/2016 [place] Heart Rate 68 05/02/2016 [place] Respitory Rate 18 05/02/2016 [place] Temperature Oral (F) 98.2 F 05/02/2016 [place] BMI Calculated 28.38 05/01/2016 [place] Weight 75 05/01/2016 [place] Height 162.56 cm 04/24/2016 [place] Respitory Rate 18 03/18/2016 [facility] Systolic (mm Hg) 132 03/18/2016 [facility] Diastolic (mm Hg) 78 03/18/2016 [facility] Temperature Oral (F) 98.7 F 03/18/2016 [facility] Heart Rate 84 03/18/2016 [facility] Weight 76.364 03/17/2016 [facility] BMI Calculated 28.9 03/17/2016 [facility] Height 162.56 cm 03/17/2016 [facility] Temperature Oral (F) 102.4 F 03/17/2016 [facility] Systolic (mm Hg) 135 03/17/2016 [facility] Diastolic (mm Hg) 85 03/17/2016 [facility] Heart Rate 90 03/17/2016 [facility] Respitory Rate 18 03/17/2016 [facility] Temperature Oral (F) 98.1 F 08/03/2015 [facility] Respitory Rate 18 08/03/2015 [facility] Systolic (mm Hg) 120 08/03/2015 [facility] Diastolic (mm Hg) 81 08/03/2015 [facility] Heart Rate 66 08/03/2015 [facility] Systolic (mm Hg) 123 08/03/2015 [facility] Diastolic (mm Hg) 87 08/03/2015 [facility] Height 165.1 cm 08/03/2015 [facility] Heart Rate 74 08/03/2015 [facility] Respitory Rate 20 08/03/2015 [facility] BMI Calculated 26.68 08/03/2015 [facility] Weight 72.727 08/03/2015 [facility] Temperature Oral (F) 98.1 F 08/03/2015 [facility] Respitory Rate 18 04/08/2015 [facility] Systolic (mm Hg) 105 04/08/2015 [facility] Diastolic (mm Hg) 67 04/08/2015 [facility] Heart Rate 67 04/08/2015 [facility] Weight 78.324 04/08/2015 [facility] Respitory Rate 18 04/08/2015 [facility] Heart Rate 79 04/08/2015 [facility] Systolic (mm Hg) 100 04/08/2015 [facility] Diastolic (mm Hg) 67 04/08/2015 [facility] Heart Rate 60 04/08/2015 [facility] Respitory Rate 18 04/08/2015 [facility] Systolic (mm Hg) 101 04/08/2015 [facility] Diastolic (mm Hg) 64 04/08/2015 [facility] Temperature Oral (F) 97.5 F 04/08/2015 [facility] Temperature Oral (F) 97.9 F 04/08/2015 [facility] Temperature Oral (F) 98.6 F 04/08/2015 [facility] [place] BMI Calculated 29.52 04/07/2015 [facility] Weight 80.455 04/07/2015 [facility] Height 165.1 cm 04/07/2015 [facility] Weight 80.455 04/07/2015 [facility] BMI Calculated 29.52 04/07/2015 [facility] Height 165.1 cm 04/07/2015 [facility] Respitory Rate 18 11/07/2014 [facility] Systolic (mm Hg) 108 11/07/2014 [facility] Diastolic (mm Hg) 71 11/07/2014 [facility] Heart Rate 66 11/07/2014 [facility] Temperature Oral (F) 98.6 F 11/07/2014 [facility] Systolic (mm Hg) 81 11/07/2014 [facility] Diastolic (mm Hg) 53 11/07/2014 [facility] Heart Rate 66 11/07/2014 [facility] Respitory Rate 16 11/07/2014 [facility] Temperature Oral (F) 98.9 F 11/07/2014 [facility] Systolic (mm Hg) 98 11/07/2014 [facility] Diastolic (mm Hg) 65 11/07/2014 [facility] Temperature Oral (F) 98.1 F 11/07/2014 [facility] Heart Rate 70 11/07/2014 [facility] Respitory Rate 18 11/07/2014 [facility] BMI Calculated 26.18 11/05/2014 [facility] Weight 71.364 11/05/2014 [facility] Height 165.1 cm 11/05/2014 [facility] Temperature Oral (F) 98.0 F 11/03/2014 [facility] Systolic (mm Hg) 111 11/03/2014 [facility] Diastolic (mm Hg) 74 11/03/2014 [facility] Respitory Rate 14 11/03/2014 [facility] Temperature Oral (F) 98.2 F 11/03/2014 [facility] Respitory Rate 14 11/03/2014 [facility] Systolic (mm Hg) 118 11/03/2014 [facility] Diastolic (mm Hg) 78 11/03/2014 [facility] Systolic (mm Hg) 126 11/03/2014 [facility] Diastolic (mm Hg) 80 11/03/2014 [facility] Respitory Rate 15 11/03/2014 [facility] Heart Rate 70 11/03/2014 [facility] Weight 77 11/03/2014 [facility] Temperature Oral (F) 98.2 F 11/03/2014 [facility] Diastolic (mm Hg) 51 03/08/2013 [facility] Heart Rate 105 03/08/2013 [facility] Temperature Oral (F) 100.1 F 03/08/2013 [facility] Systolic (mm Hg) 100 03/08/2013 [facility] Respitory Rate 18 03/08/2013 [facility] Temperature Oral (F) 102.8 F 03/08/2013 [facility] Temperature Oral (F) 103.1 F 03/08/2013 [facility] Systolic (mm Hg) 109 03/07/2013 [facility] Respitory Rate 18 03/07/2013 [facility] Diastolic (mm Hg) 71 03/07/2013 [facility] Heart Rate 101 03/07/2013 [facility] Systolic (mm Hg) 118 03/07/2013 [facility] Diastolic (mm Hg) 47 03/07/2013 [facility] Respitory Rate 16 03/07/2013 [facility] Heart Rate 88 03/07/2013 [facility] Diastolic (mm Hg) 64 03/07/2013 [facility] Respitory Rate 20 03/07/2013 [facility] Systolic (mm Hg) 108 03/07/2013 [facility] Heart Rate 84 03/07/2013 [facility] Temperature Oral (F) 99.1 F 03/07/2013 [facility] Systolic (mm Hg) 99 03/07/2013 [facility] Diastolic (mm Hg) 54 03/07/2013 [facility] Heart Rate 81 03/07/2013 [facility] Respitory Rate 20 03/07/2013 [facility] Systolic (mm Hg) 102 03/07/2013 [facility] Diastolic (mm Hg) 61 03/07/2013 [facility] Heart Rate 92 03/07/2013 [facility] Respitory Rate 19 03/07/2013 [facility] Temperature Oral (F) 101.2 F 03/07/2013 [facility] Height 162.56 cm 04/04/2012 [facility] Weight 72.727 04/04/2012 [facility] Encounters Location Location Encounter Encounter Reason Attending ADM DC Status Source Details Type Number For Provider Date Date Visit Emergency [id number] HABACUC 04/03 04/04 Discharg [facility] 0 MERLE ed [facility] Emergency [id number] MELANIE 03/07 03/07 Discharg [facility] 1 HOBERMAN /2012 ed [facility] Emergency [id number] ROSE 03/07 03/07 Discharg [facility] 2 VAKEY /2012 ed [facility] Emergency [id number] Joy 11/03 11/03 [facility] 3 F[place]ole /2014 [facility] OBS [id number] Nabor Gwendolyn 11/05 11/07 [place] [facility] OBS [id number] Sunny 04/07 04/08 [facility] 5 Rodriguez /2015 [facility] Emergency [id number] Sofiya 08/02 08/02 [facility] 6 Arora /2015 [facility] Emergency [id number] Asim 03/17 03/18 [place] 7 Weathers /2015 [facility] Bedded [id number] Darren Mars 05/01 05/02 [place] [facility] Emergency [id number] Young 10/13 10/13 [facility] 0 Christy [facility] Emergency [id number] Juve 10/26 10/26 [place] 1 Amelia [facility] Emergency [id number] Lalita 10/31 10/31 [facility] 2 Aznaurova- /2017 [facility] Emergency [id number] Ambica 11/17 11/17 [facility] 3 Amalia [facility] Procedures Procedure Code Date Perfomer Comments Source Laparoscopic [id number] 05/01/2016 [facility] hysterectomy Laparoscopic [id number] 05/01/2016 [facility] hysterectomy Laparoscopic [id number] 05/01/2016 [place] hysterectomy [id number] x 2 [facility] section<sup>1</sup > [id number] x 2 [facility] section<sup>1</sup > [id number] x [address] [facility] section<sup>1</sup > [id number] x 2 [place] section<sup>1</sup > Assessment and Plan Assessment and Plan Date Source Extracted from:Title: Teleneurology Consultation 10/31/2017 [facility] Author: Kavitha Sauer MD Date: 10/31/17 TELEMEDICINE NEUROLOGY - CONSULTATION Date of [...] Vitals Tmp(F) Pulse BP RR SpO2 FIO2 10/31 15:04 99.6 93 113/81 18 97 --- [...] 2-neither 0 1c. 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 Best Gaze; 0-nl 1-partial 2-forced gaze 0 3. Visual Conner; 0-No visual loss. 1-Partial hemianopia 2-Complete 3- Bilateral 0 4. Facial Palsy; 0-none 1-minor 2-partial [...] with any interim questions. Kavitha Sauer MD Paramedic, Neurology Call center [phone] Extracted from:Title: Discharge note / [facility] 05/02/2016 JAN Darby Author: Darren Mars MD Date: 05/02/16 Impression and Plan The patient condition is stable. The patient will be sent home today with pain medication. The diet, activities nad ambulation have been discussed with the patients. She returns in 2 weeks for follow-up. Plan of Care No Data Provided for This Section Social History Social History Date Source Social History TypeResponse 08/03/2015 [facility] Substance Abuse Use: None. Exercise 1 Employment/School Status: Employed. Alcohol Never Smoking Status Never smoker; Type: Cigarettes; Previous treatment: None; Ready to change: No; Concerns about tobacco use in household: No; Exposure to Tobacco Smoke None; Cigarette Smoking Last 365 Days No; Reg Smoking Cessation Counseling No entered on: 04/10/18 1no Social History TypeResponse 08/03/2015 [facility] Substance Abuse Use: None. Exercise 1 Employment/School Status: Employed. Alcohol Never Smoking Status Never smoker; Type: Cigarettes; Previous treatment: None; Ready to change: No; Concerns about tobacco use in household: No; Exposure to Tobacco Smoke None; Cigarette Smoking Last 365 Days No; Reg Smoking Cessation Counseling No entered on: 04/10/18 1no Social History TypeResponse 08/03/2015 [facility] Substance Abuse Use: None. Exercise 1 Employment/School Status: Employed. Alcohol Never Smoking Status Never smoker; Type: Cigarettes; Exposure to Tobacco Smoke None; Cigarette Smoking Last 365 Days No; Reg Smoking Cessation Counseling No 1no Social History TypeResponse 11/05/2014 [facility] Alcohol Current, Frequency: 1-2 times per month. Smoking Status Never smoker; Exposure to Tobacco Smoke None; Cigarette Smoking Last 365 Days No; Reg Smoking Cessation Counseling No Family History No Data Provided for This Section Advance Directives No Data Provided for This Section Functional Status No Data Provided for This Section
--- OUTSIDE RECORDS SUMMARY | 2018-09-24 18:08 | XMS REPORT | CCD ---
:1975 Author Organization [facility] Care Team Providers Name Role Phone Trevor [...]
--- OUTSIDE RECORDS SUMMARY | 2018-09-24 18:08 | XMS REPORT | CCD ---
:1975 Author Organization [facility] Care Team Providers Name Role Phone Scott [...] values reflect the clinical guidelines of the [place] [employer].HEMATOLOGY Most recent to oldest [Reference [...]
--- OUTSIDE RECORDS SUMMARY | 2018-09-24 18:08 | XMS REPORT | CCD ---
:1975 Author Organization [facility] Care Team Providers Name Role Phone [...]
--- OUTSIDE RECORDS SUMMARY | 2018-09-24 18:09 | XMS REPORT ---
:1975 [facility] [address] [place] [address] Care Team Providers Name Role Phone Unavailable Unavailable Unavailable Problems This patient has no known problems. Allergies, Adverse Reactions, Alerts This patient has no known allergies or adverse reactions. Medications This patient has no known medications. Encounters Start End Encounter Admission Attending Care Care Encounter Date/Time Date/Time Type Type Clinicians Facility Department ID 2017-11-16 2017-11-16 Emergency E [id number] 21:34:00 21:34:00
--- NOTE | 2018-09-24 18:11 | ER ---
Nurse's Notes [facility] Name: Roxana Sanchez Age: 43 yrs Sex: Female : 1975 Arrival Date: 09/24/2018 Time: 17:51 Bed 5 Private MD: Diagnosis: Acute pharyngitis Presentation: 09/24 18:05 Presenting complaint: Patient states: headache, sore throat and fatigue since ss yesterday. Transition of care: patient was not received from another setting of care. Onset of symptoms was September 23, 2018. Risk Assessment: Do you want to hurt yourself or someone else? Patient reports no desire to harm self or others. Initial Sepsis Screen: Does the patient have a suspected source of infection? Yes: Other: throat. Initial Sepsis Screen: Does the patient meet any 2 criteria? Temp <36.0*C (96.8*F)) or > 38.3*C (100.9*F). HR > 90 bpm. If YES to both, name of provider notified: Connie Leon MD. Care prior to arrival: None. 18:05 Method Of Arrival: Ambulatory ss 18:05 Acuity: DELMI 4 ss Triage Assessment: 18:05 Headache History: The patient has had previous headaches and this one is similar to bp previous episodes. General: Appears in no apparent distress. Behavior is calm, cooperative, appropriate for age. Pain: Complains of pain in head Pain currently is 6 out of 10 on a pain scale. Pain began 1 day ago. Also complains of no other associated symptoms. EENT: Throat has patchy exudate Reports difficulty swallowing. Neuro: No deficits noted. Cardiovascular: No deficits noted. Respiratory: No deficits noted. GI: No deficits noted. : No signs and/or symptoms were reported regarding the genitourinary system. Derm: No deficits noted. Musculoskeletal: No deficits noted. Historical: - Allergies: 18:10 HYDROCODONE; ss 18:10 Vicodin; ss - PMHx: 18:10 acid reflux; Anemia; Anxiety; Depression; ss - PSHx: 18:10 ; Hysterectomy; ss - Immunization history:: Adult Immunizations up to date, Adult Immunizations up to date. - Social history:: Patient/guardian denies using alcohol, street drugs, The patient lives with family, Smoking status: Patient/guardian denies using tobacco, Smoking status: Patient/guardian denies using tobacco. - Family history:: not pertinent. - Ebola Screening: : Patient denies exposure to infectious person Patient denies travel to an Ebola-affected area in the 21 days before illness onset Patient denies exposure to infectious person Patient denies travel to an Ebola-affected area in the 21 days before illness onset. Screenin:05 Abuse screen: Denies threats or abuse. Denies injuries from another. Nutritional bp screening: No deficits noted. Tuberculosis screening: No symptoms or risk factors identified. Fall Risk None identified. Assessment: 18:05 General: SEE TRIAGE NOTE. bp 18:22 Reassessment: PT D/C HOME AMBULATORY WITH FAMILY, DX WITH STREP THROAT. bp Vital Signs: 18:10 BP 113 / 73; Pulse 94; Resp 18; Temp 103.1(O); Pulse Ox 97% on R/A; Weight 77.11 kg; ss Height 5 ft. 4 in. (162.56 cm); Pain 8/10; 18:10 Body Mass Index 29.18 (77.11 kg, 162.56 cm) ED Course: 17:51 Patient arrived in ED. rg4 17:56 Connie Leon MD is Attending Physician. ma2 18:00 Scott Mckeon, ELIJAH is Primary Nurse. bp 18:05 Patient has correct armband on for positive identification. Bed in low position. Call bp light in reach. Side rails up X2. Adult w/ patient. 18:05 No provider procedures requiring assistance completed. Patient did not have IV access bp during this emergency room visit. 18:08 Triage completed. ss 18:10 Arm band placed on right wrist. ss Administered Medications: 18:07 CANCELLED (Patient Refused): NS 0.9% 1000 ml IV at 1 bolus Per protocol; 1000 mL bolus ma2 18:10 Drug: Tylenol 650 mg Route: PO; bp 18:23 Follow up: Response: No adverse reaction bp Outcome: 18:05 Discharged to home ambulatory, with family. bp 18:05 Condition: stable 18:05 Discharge instructions given to patient, Instructed on discharge instructions, follow up and referral plans. medication usage, Demonstrated understanding of instructions, follow-up care, medications, Prescriptions given X 2. 18:10 Discharge ordered by . ma2 18:23 Patient left the ED. bp Signatures: Cami Pathak, RN RN ss Kelley Stephenson rg4 Scott Mkceon, RN RN bp Connie Leon MD MD ma2
--- NOTE | 2018-09-24 18:11 | EDPHYS ---
Physician Documentation [facility] Name: Roxana Sanchez Age: 43 yrs Sex: Female : 1975 Arrival Date: 09/24/2018 Time: 17:51 Bed 5 Private MD: ED Physician Connie Leon HPI: 09/24 18:09 This 43 yrs old Black Female presents to ER via Ambulatory with complaints of Headache, ma2 Fever, Sore Throat. 18:09 Onset: The symptoms/episode began/occurred gradually, 2 day(s) ago. Severity of ma2 symptoms: At its worst the pain was mild, in the emergency department the pain is unchanged. Headache History: The patient has had previous headaches and this one is similar to previous episodes. decline iv or im shots . Historical: - Allergies: 18:10 HYDROCODONE; ss 18:10 Vicodin; ss - PMHx: 18:10 acid reflux; Anemia; Anxiety; Depression; ss - PSHx: 18:10 ; Hysterectomy; ss - Immunization history:: Adult Immunizations up to date, Adult Immunizations up to date. - Social history:: Patient/guardian denies using alcohol, street drugs, The patient lives with family, Smoking status: Patient/guardian denies using tobacco, Smoking status: Patient/guardian denies using tobacco. - Family history:: not pertinent. - Ebola Screening: : Patient denies exposure to infectious person Patient denies travel to an Ebola-affected area in the 21 days before illness onset Patient denies exposure to infectious person Patient denies travel to an Ebola-affected area in the 21 days before illness onset. ROS: 18:09 Constitutional: Negative for fever, chills, and weight loss. ma2 18:09 All other systems are negative. Exam: 18:09 Constitutional: This is a well developed, well nourished patient who is awake, alert, ma2 and in no acute distress. Chest/axilla: Normal chest wall appearance and motion. Nontender with no deformity. No lesions are appreciated. Cardiovascular: Regular rate and rhythm with a normal S1 and S2. No gallops, murmurs, or rubs. Normal PMI, no JVD. No pulse deficits. Respiratory: Lungs have equal breath sounds bilaterally, clear to auscultation and percussion. No rales, rhonchi or wheezes noted. No increased work of breathing, no retractions or nasal flaring. Abdomen/GI: Soft, non-tender, with normal bowel sounds. No distension or tympany. No guarding or rebound. No evidence of tenderness throughout. 18:09 MS/ Extremity: Pulses equal, no cyanosis. Neurovascular intact. Full, normal range of motion. Neuro: Awake and alert, GCS 15, oriented to person, place, time, and situation. Cranial nerves II-XII grossly intact. Motor strength 5/5 in all extremities. Sensory grossly intact. Cerebellar exam normal. Normal gait. 18:09 ENT: Posterior pharynx: Tonsils: bilaterally enlarged, with erythema, with exudate. Vital Signs: 18:10 BP 113 / 73; Pulse 94; Resp 18; Temp 103.1(O); Pulse Ox 97% on R/A; Weight 77.11 kg; ss Height 5 ft. 4 in. (162.56 cm); Pain 8/10; 18:10 Body Mass Index 29.18 (77.11 kg, 162.56 cm) ss MDM: 17:56 Patient medically screened. ma2 18:09 Differential diagnosis: otitis, sinusitis, tension headache. Data reviewed: vital ma2 signs, nurses notes. Counseling: I had a detailed discussion with the patient and/or guardian regarding: the historical points, exam findings, and any diagnostic results supporting the discharge/admit diagnosis, the presence of at least one elevated blood pressure reading (>120/80) during this emergency department visit, the need for outpatient follow up. Response to treatment: the patient's symptoms have markedly improved after treatment. 09/24 18:00 Order name: IV Saline Lock [facility] 09/24 18:00 Order name: Labs collected and sent [facility] 09/24 18:00 Order name: Urine Dipstick-Ancillary (obtain specimen) ma2 Administered Medications: 18:07 CANCELLED (Patient Refused): NS 0.9% 1000 ml IV at 1 bolus Per protocol; 1000 mL bolus ma2 18:10 Drug: Tylenol 650 mg Route: PO; bp 18:23 Follow up: Response: No adverse reaction bp Disposition: 09/24/18 18:10 Discharged to Home. Impression: Acute pharyngitis. - Condition is Stable. - Discharge Instructions: Pharyngitis. - Prescriptions for MOTRIN 600 - take 600 milligram by ORAL route 3 times per day; 60 tablet. Zithromax Z- Onel 250 mg Oral Tablet - take 1 tablet by ORAL route as directed for 5 days Day 1 - take two (2) tablets one time. Day 2, 3, 4 , 5 take one (1) tablet once daily.; 6 tablet. - Medication Reconciliation Form, Thank You Letter, Antibiotic Education, Prescription Opioid Use form. - Follow up: Private Physician; When: Tomorrow; Reason: Continuance of care. Signatures: Dispatcher [employer] EDCami Che RN RN Scott Mckeon RN RN Connie Grijalva MD MD ma2 Corrections: (The following items were deleted from the chart) 18:07 18:00 NS 0.9% 1000 ml IV at 1 bolus Per protocol; 1000 mL bolus ordered. ma2 ma2 18:23 18:10 09/24/2018 18:10 Discharged to Home. Impression: Acute pharyngitis. Condition is bp Stable. Forms are Medication Reconciliation Form, Thank You Letter, Antibiotic Education, Prescription Opioid Use. Follow up: Private Physician; When: Tomorrow; Reason: Continuance of care. ma2
[2018-09-24] MEDS ORDERED: ACETAMINOPHEN 325 MG TABLET ONE (18:27)
== END 2018-09-24 18:23 | disposition home or self-care (01) ==
LOC: ER 17:48
DX: J02.9 Acute pharyngitis, unspecified (principal); Z88.5 Allergy status to narcotic agent
CPT/HCPCS: 99283

== ENCOUNTER 2019-03-25 09:17 | Emergency (ER) | payer SELFPAY ==
--- OUTSIDE RECORDS SUMMARY | 2019-03-25 09:32 | XMS REPORT ---
:1975 [facility] [address] [place] [address] Care Team Providers Name Role Phone Unavailable [...]
[2019-03-25 09:59] LABS: Absolute Lymphocytes (CBC) 1.8 K/uL (0.7-4.9); Basophils % 0.8 % (0-1.3); Hematocrit 41.7 % (36.0-45.0); Lymphocytes % 30.3 % (15.3-44.8); MPV 8.6 fL (7.6-11.3); RBC Red Blood Cell Count 4.62 M/uL (3.86-4.86)
[2019-03-25 10:16] LABS: ALT/SGPT 28 U/L (12-78); AST/SGOT 18 U/L (15-37); Albumin 3.6 g/dL (3.4-5.0); Alkaline Phosphatase 89 U/L (45-117); BUN Blood Urea Nitrogen 6 mg/dL (7-18); Bicarbonate 28 mmol/L (21-32); Bilirubin Direct 0.1 mg/dL (0-0.2); Bilirubin Total 0.4 mg/dL (0.2-1.0); Glucose Level 100 mg/dL (74-106); Lipase 139 U/L (73-393); Potassium 3.8 mmol/L (3.5-5.1); Protein, Total 8.6 g/dL (6.4-8.2); Sodium Level 138 mmol/L (136-145)
[2019-03-25] MEDS ORDERED: ONDANSETRON 4 MG/2 ML VIAL ONE (10:19)
[2019-03-25] MEDS ORDERED: KETOROLAC 30 MG/ML INJ ONE (10:19)
[2019-03-25] MEDS ORDERED: NA CHLORIDE 0.9% 1,000 ML ONE (10:20)
--- NOTE | 2019-03-25 10:30 | RAD REPORT ---
EXAM DESCRIPTION: CT - Stone Protocol - 03/25/2019 10:21 am CLINICAL HISTORY: Right lower quadrant pain for 2 days COMPARISON: April 2017 TECHNIQUE: Axial 5 mm thick images were obtained without oral or IV contrast. The [id number] span s the entirety of the system partially obscuring uppermost abdomen and lung bases. All CT scans are performed using dose optimization technique as appropriate and may include automated exposure control or mA/KV adjustment according to patient size. FINDINGS: No hydronephrosis is present and no obstructing ureteral calculi. Nonobstructing calculi a re present in the lower pole of the left kidney 4 and 6 mm in size. No right-sided calculi. No suspic ious renal masses. Isodense masses and pyelonephritis are not excluded on a stone protocol CT scan. N o urinary bladder suspicious finding. No significant adrenal finding. Imaged portions of the liver, spleen and pancreas show no suspicious findings on non-contrast imaging . No gallbladder or biliary tree abnormality identified. No suspicious bowel findings. No findings for appendicitis. Uterus is absent. Ovaries are absent or o bscured by the adjacent isodense bowel. No suspicion for an ovarian process. No hernia, mass or bulky lymphadenopathy noted. No free air, free fluid or inflammatory stranding. A few small mesenteric lymph nodes are present. No significant bony abnormality. IMPRESSION: No findings for appendicitis. No acute GI process seen. No obstruction or acute finding. Isodense masses and pyelonephritis are not excluded on stone protocol technique. A few small nonspecific mesenteric lymph nodes are present.
--- NOTE | 2019-03-25 11:00 | ER ---
Nurse's Notes [facility] [place] Name: Roxana Sanchez Age: 44 yrs Sex: Female : 1975 Arrival Date: 03/25/2019 Time: 09:18 Bed 8 Private MD: Diagnosis: Abdominal tenderness;Nonspecific mesenteric lymphadenitis Presentation: 03/25 09:23 Presenting complaint: Patient states: RLQ pain X 2days, throbbing on right side, denies iw urinary s/s , denies n/v/d. Transition of care: patient was not received from another setting of care. Onset of symptoms was March 23, 2019. Risk Assessment: Do you want to hurt yourself or someone else? Patient reports no desire to harm self or others. Initial Sepsis Screen: Does the patient meet any 2 criteria? No. Patient's initial sepsis screen is negative. Does the patient have a suspected source of infection? No. Patient's initial sepsis screen is negative. Care prior to arrival: None. 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 - Social history:: Smoking status: Patient/guardian denies using tobacco. - Ebola Screening: : Patient negative for fever greater than or equal to 101.5 degrees Fahrenheit, and additional compatible Ebola Virus Disease symptoms Patient denies exposure to infectious person Patient denies travel to an Ebola-affected area in the 21 days before illness onset No symptoms or risks identified at this time. - Family history:: not pertinent. Screenin:59 Abuse screen: Denies threats or abuse. Denies injuries from another. Nutritional sv screening: No deficits noted. Tuberculosis screening: No symptoms or risk factors identified. Fall Risk None identified. Assessment: 10:03 General: Appears in no apparent distress. comfortable, well groomed, well developed, sv Behavior is calm, cooperative, appropriate for age. Pain: Complains of pain in posterior aspect of right lateral abdomen and anterior aspect of right lateral abdomen Pain currently is 5 out of 10 on a pain scale. Pain began 2-3 days ago. Is intermittent. Neuro: Level of Consciousness is awake, alert, obeys commands, Oriented to person, place, time, situation, Moves all extremities. Full function Speech is normal. Respiratory: Airway is patent Respiratory effort is even, unlabored, Respiratory pattern is regular, symmetrical. GI: Abdomen is flat, Bowel sounds present X 4 quads. Abd is soft and non tender X 4 quads. Derm: Skin is pink, warm \T\ dry. 11:12 Reassessment: Patient appears in no apparent distress at this time. Patient and/or sv family updated on plan of care and expected duration. Pain level reassessed. Patient is alert, oriented x 3, equal unlabored respirations, skin warm/dry/pink. Patient states feeling better. Patient states symptoms have improved. Vital Signs: 09:24 BP 135 / 74; Pulse 72; Resp 16; Temp 97.5; Pulse Ox 97% on R/A; Weight 77.11 kg; Height iw 5 ft. 5 in. (165.10 cm); Pain 5/10; 10:11 BP 130 / 89; Pulse 63; Resp 16; Pulse Ox 98% ; sv 11:12 BP 127 / 88; Pulse 60; Resp 16; Pulse Ox 99% ; sv 09:24 Body Mass Index 28.29 (77.11 kg, 165.10 cm) iw ED Course: 09:18 Patient arrived in ED. as 09:23 Triage completed. iw 09:24 Arm band placed on. iw 09:27 Shahbaz Corado MD is Attending Physician. olayinka 09:50 Inserted saline lock: 22 gauge in right antecubital area, using aseptic technique. [email or web address] Blood collected. 09:58 Jackelyn Cagle, ELIJAH is Primary Nurse. sv 09:59 Patient has correct armband on for positive identification. Bed in low position. Call sv light in reach. Pulse ox on. NIBP on. Door closed. Head of bed elevated. 10:[address] via wheelchair. sv 10:21 CT Stone Protocol In Process Unspecified. EDMS 10:[address] sv 11:12 No provider procedures requiring assistance completed. IV discontinued, intact, sv bleeding controlled, No redness/swelling at site. Pressure dressing applied. Administered Medications: 10:30 Drug: NS 0.9% 1000 ml Route: IV; Rate: 1 bolus; Site: right antecubital; sv 11:10 Follow up: Response: No adverse reaction; IV Status: Completed infusion; IV Intake: sv 800ml 10:30 Drug: TORadol 30 mg Route: IVP; Site: right antecubital; sv 11:10 Follow up: Response: No adverse reaction sv 10:30 Drug: Zofran 4 mg Route: IVP; Site: right antecubital; sv 11:10 Follow up: Response: No adverse reaction; Marked relief of symptoms; Nausea is decreasedsv Intake: 11:10 IV: 800ml; Total: 800ml. sv Outcome: 10:59 Discharge ordered by . olayinka 11:12 Discharged to home ambulatory, with family. sv 11:12 Condition: stable 11:12 Discharge instructions given to patient, family, Instructed on discharge instructions, follow up and referral plans. medication usage, Demonstrated understanding of instructions, follow-up care, medications, Prescriptions given X 2. 11:12 Patient left the ED. sv Signatures: Dispatcher [employer] Jackelyn Ying RN RN sv Anderson, Corey, MD MD cha Martinez, Amelia as Williams, Irene, Yoko Palm RN [email or web address]
--- NOTE | 2019-03-25 11:00 | EDPHYS ---
Physician Documentation [facility] Name: Roxana Sanchez Age: 44 yrs Sex: Female : 1975 Arrival Date: 03/25/2019 Time: 09:18 Bed 8 Private MD: MAGALIE Physician Shahbaz Corado HPI: 03/25 10:13 This 44 yrs old Black Female presents to ER via Ambulatory with complaints of Abdominal olayinka Pain. 10:13 The patient presents with abdominal pain in the lower abdomen, in the right upper olayinka quadrant, right lower quadrant, abdominal distention in the upper abdomen, in the lower abdomen. Onset: The symptoms/episode began/occurred 2 day(s) ago. The patient complains of pain in the right mid back and right low back. The pain radiates to the right mid back and right low back. Onset: The symptoms/episode began/occurred 1 day(s) ago. Modifying factors: The symptoms are alleviated by nothing. the symptoms are aggravated by nothing. Associated signs and symptoms: The patient has no apparent associated signs or symptoms. [employer] [employer]: 09:24 LMP N/A - Hysterectomy iw Historical: - Allergies: 09:24 HYDROCODONE; iw 09:24 Vicodin; iw - Home Meds: 09:24 None [Active]; iw - PMHx: 09:24 acid reflux; Anemia; Anxiety; Depression; iw - PSHx: 09:24 ; Hysterectomy; iw - Immunization history:: Adult Immunizations not up to date. - Social history:: Smoking status: Patient/guardian denies using tobacco. - Ebola Screening: : Patient negative for fever greater than or equal to 101.5 degrees Fahrenheit, and additional compatible Ebola Virus Disease symptoms Patient denies exposure to infectious person Patient denies travel to an Ebola-affected area in the 21 days before illness onset No symptoms or risks identified at this time. - Family history:: not pertinent. ROS: 10:13 Constitutional: Negative for fever, chills, and weight loss, Eyes: Negative for injury, olayinka pain, redness, and discharge, ENT: Negative for injury, pain, and discharge, Neck: Negative for injury, pain, and swelling, Cardiovascular: Negative for chest pain, palpitations, and edema, Respiratory: Negative for shortness of breath, cough, wheezing, and pleuritic chest pain, : Negative for injury, bleeding, discharge, and swelling, MS/Extremity: Negative for injury and deformity, Skin: Negative for injury, rash, and discoloration, Neuro: Negative for headache, weakness, numbness, tingling, and seizure, Psych: Negative for depression, anxiety, suicide ideation, homicidal ideation, and hallucinations, Allergy/Immunology: Negative for hives, rash, and allergies, Endocrine: Negative for neck swelling, polydipsia, polyuria, polyphagia, and marked weight changes. 10:13 Abdomen/GI: Positive for abdominal pain, abdominal cramps, of the posterior aspect of right lateral abdomen, anterior aspect of right lateral abdomen and right lower quadrant. Exam: 10:13 Constitutional: This is a well developed, well nourished patient who is awake, alert, olayinka and in no acute distress. Head/Face: Normocephalic, atraumatic. Eyes: Pupils equal round and reactive to light, extra-ocular motions intact. Lids and lashes normal. Conjunctiva and sclera are non-icteric and not injected. Cornea within normal limits. Periorbital areas with no swelling, redness, or edema. ENT: Nares patent. No nasal discharge, no septal abnormalities noted. Tympanic membranes are normal and external auditory canals are clear. Oropharynx with no redness, swelling, or masses, exudates, or evidence of obstruction, uvula midline. Mucous membranes moist. Neck: Trachea midline, no thyromegaly or masses palpated, and no cervical lymphadenopathy. Supple, full range of motion without nuchal rigidity, or vertebral point tenderness. No Meningismus. Chest/axilla: Normal chest wall appearance and motion. Nontender with no deformity. No lesions are appreciated. Cardiovascular: Regular rate and rhythm with a normal S1 and S2. No gallops, murmurs, or rubs. Normal PMI, no JVD. No pulse deficits. Respiratory: Lungs have equal breath sounds bilaterally, clear to auscultation and percussion. No rales, rhonchi or wheezes noted. No increased work of breathing, no retractions or nasal flaring. Back: No spinal tenderness. No costovertebral tenderness. Full range of motion. Female : Normal external genitalia. Skin: Warm, dry with normal turgor. Normal color with no rashes, no lesions, and no evidence of cellulitis. MS/ Extremity: Pulses equal, no cyanosis. Neurovascular intact. Full, normal range of motion. Neuro: Awake and alert, GCS 15, oriented to person, place, time, and situation. Cranial nerves II-XII grossly intact. Motor strength 5/5 in all extremities. Sensory grossly intact. Cerebellar exam normal. Normal gait. Psych: Awake, alert, with orientation to person, place and time. Behavior, mood, and affect are within normal limits. 10:13 Abdomen/GI: Inspection: abdomen appears normal, Bowel sounds: normal, Palpation: mild abdominal tenderness, in the posterior aspect of right lateral abdomen, anterior aspect of right lateral abdomen and right lower quadrant, Liver: is firm, Hernia: not appreciated. Vital Signs: 09:24 BP 135 / 74; Pulse 72; Resp 16; Temp 97.5; Pulse Ox 97% on R/A; Weight 77.11 kg; Height iw 5 ft. 5 in. (165.10 cm); Pain 5/10; 10:11 BP 130 / 89; Pulse 63; Resp 16; Pulse Ox 98% ; sv 11:12 BP 127 / 88; Pulse 60; Resp 16; Pulse Ox 99% ; sv 09:24 Body Mass Index 28.29 (77.11 kg, 165.10 cm) iw MDM: 09:27 Patient medically screened. [facility] 10:13 Data reviewed: vital signs, nurses notes, lab test result(s), radiologic studies, CT olayinka scan. 03/25 09:43 Order name: Basic Metabolic Panel; Complete Time: 10:55 03/25 09:43 Order name: CBC with Diff; Complete Time: 10:55 03/25 09:43 Order name: Creatinine for Radiology; Complete Time: 10:55 03/25 09:43 Order name: Hepatic Function; Complete Time: 10:55 03/25 09:43 Order name: Lipase; Complete Time: 10:55 03/25 09:59 Order name: Urine Dipstick--Ancillary (enter results) 03/25 09:43 Order name: IV Saline Lock; Complete Time: 09:51 03/25 09:43 Order name: Labs collected and sent; Complete Time: 09:51 03/25 09:43 Order name: Urine Dipstick-Ancillary (obtain specimen); Complete Time: 09:44 03/25 10:13 Order name: CT Stone Protocol; Complete Time: 10:55 [facility] 03/25 10:13 Order name: Urine Culture [facility] 03/25 09:43 Order name: Urine Test (obtain specimen); Complete Time: 09:44 sg Administered Medications: 10:30 Drug: NS 0.9% 1000 ml Route: IV; Rate: 1 bolus; Site: right antecubital; sv 11:10 Follow up: Response: No adverse reaction; IV Status: Completed infusion; IV Intake: sv 800ml 10:30 Drug: TORadol 30 mg Route: IVP; Site: right antecubital; sv 11:10 Follow up: Response: No adverse reaction sv 10:30 Drug: Zofran 4 mg Route: IVP; Site: right antecubital; sv 11:10 Follow up: Response: No adverse reaction; Marked relief of symptoms; Nausea is decreasedsv Disposition: 03/25/19 10:59 Discharged to Home. Impression: Abdominal tenderness, Nonspecific mesenteric lymphadenitis. - Condition is Stable. - Discharge Instructions: Abdominal Pain, Adult, Abdominal Pain, Adult, [id number]. - Prescriptions for Bentyl 20 mg Oral Tablet - take 1 tablet by ORAL route every 6 hours As needed; 20 tablet. Zofran 4 mg Oral Tablet - take 1 tablet by ORAL route every 12 hours As needed; 20 tablet. - Medication Reconciliation Form, Thank You Letter, Antibiotic Education, Prescription Opioid Use form. - Follow up: Private Physician; When: 2 - 3 days; Reason: Recheck today's complaints, Continuance of care, Re-evaluation by your physician. - Problem is new. - Symptoms have improved. Signatures: Dispatcher [employer] Jackelyn Ying RN RN sv Gay, Steven, RN RN sg Anderson, Corey, MD MD cha Williams, Irene, RN RN iw Corrections: (The following items were deleted from the chart) 11:12 10:59 03/25/2019 10:59 Discharged to Home. Impression: Abdominal tenderness; sv Nonspecific mesenteric lymphadenitis. Condition is Stable. Forms are Medication Reconciliation Form, Thank You Letter, Antibiotic Education, Prescription Opioid Use. Follow up: Private Physician; When: 2 - 3 days; Reason: Recheck today's complaints, Continuance of care, Re-evaluation by your physician. Problem is new. Symptoms have improved. [facility]
[2019-03-25 11:32] VITALS: TEMP 97.5
[2019-03-25 11:35] VITALS: BP 127/88; O2SAT 99
[2019-03-25 12:05] LABS: Urine Blood NEGATIVE (NEG); Urine Glucose NEGATIVE (NEG); Urine Protein NEGATIVE (NEG)
== END 2019-03-25 11:12 | disposition home or self-care (01) ==
LOC: ER 09:17
DX: I88.0 Nonspecific mesenteric lymphadenitis (principal); Z88.5 Allergy status to narcotic agent
CPT/HCPCS: 36415; 74176; 76377; 80048; 80076; 81003; 83690; 85025; 87086; 87088; 96361; 96374; 96375; 99284; J2405; J7030

== ENCOUNTER 2020-09-02 21:52 | Emergency (ER) | payer SELFPAY ==
--- OUTSIDE RECORDS SUMMARY | 2020-09-02 22:00 | XMS REPORT | Continuity of Care Document ---
:1975 Author Organization [facility] t Address [address] [place] [address] Care Team Providers Name Role Phone Brandy Caal Attending Clinician Ranjit RAY Attending Clinician Lucille Stone Attending Clinician Stevie Vang Attending Clinician Amalia Attending Clinician Mark Machado Attending Clinician James Cisneros Attending Clinician Cleveland Christy Attending Clinician Reji Mars Attending Clinician Wicho Amato Attending Clinician Evelyn Arora Attending Clinician Michael Attending Clinician Jude Snow Attending Clinician Stacey Mercer Attending Clinician Reji Mars Admitting Clinician Jude Snow Admitting Clinician Problems Condition Condition Condition Status Onset Resolution Last Treating Co mments Source Name Details Category Date Date Treatment Clinician Date PANIC Diagnosis Active 2018-06-23 Mem oria ATTACK 1-16 10:12:00 l PANIC 00:00: Arthur ATTACK 00 Active 04/10/2018 [facility] HEART Diagnosis Active 2018-06-17 Mem oria PROBLEMS 1-04 21:29:00 l HEART 00:00: [place] PROBLEMS 00 Active 03/29/2018 [facility] SOB WEAK Diagnosis Active 2018-07-04 M emoria 8 16:41:00 l SOB WEAK 00:00: Cheko n 00 Active 11/16/2017 [facility] Arthur DIZZY/ Diagnosis Active 2018-06-20 Mem oria WEAKNESS 10-31 19:28:00 l DIZZY/ 00:00: [place] WEAKNESS 00 Active 10/31/2017 [facility] [place] CHEST PAIN Diagnosis Active 2018-06-23 Memoria 8 10:12:00 l CHEST 00:00: Arthur PAIN 00 Active 10/25/2017 [facility], [facility] ABD PAIN Diagnosis Active 2018-06-20 M emoria AND BACKK 10-13 19:28:00 l PAIN ABD PAIN 00:00: [place] n AND BACKK 00 PAIN Active 10/13/2017 [facility] Arthur UTERINE Diagnosis Active 2016-05-01 Ne moria FIBROIDS-D -30 11:50:00 l 25.9/ UTERINE 00:00: Arthur MENORRHAGI FIBROIDS-D 00 A-N92.0/ 25.9/ DYSMENORRH MENORRHAGI EA-N94 A-N92.0/ DYSMENORRH EA-N94 Active 04/24/2016 [place] FEVER Diagnosis Active 2015-032016-03-17 Mem oria 2-23 16:45:00 l FEVER 00:00: Arthur 00 Active 03/17/2016 [facility] Arthur ARM PAIN Diagnosis Active 2015-10-04 M emoria 5-10 06:03:00 l ARM PAIN 00:00: Che[place] n 00 Active 08/03/2015 [facility] SHORTNESS Diagnosis Active 2015-04-07 Memoria OF BREATH 1- 10:14:00 l 00:00: Arthur SHORTNESS 00 OF BREATH Active 04/07/2015 [facility] CHEST Diagnosis Active 2014-11-25 Mem oria PAIN, 8-13 16:15:00 l ANEMIA CHEST 00:00: [place] PAIN, 00 ANEMIA Active 11/05/2014 [facility] VOMITING Diagnosis Active 2012-032013-03-07 M emoria 2- 15:44:00 l VOMITING 00:00: [place]ko n 00 Active 03/07/2013 [facility] SOB Diagnosis Active 2012-032013-03-07 Mem oria 2- 10:30:00 l SOB 00:00: Arthur 00 Active 03/07/2013 [facility] MOUTH PAIN Diagnosis Active 2012-04-04 Memoria 04-03 02:18:00 l MOUTH 00:00: [place] PAIN 00 Active 04/03/2012 [facility] Weakness Problem 2018-10-28 Mem oria 15:48:36 l Weakness Cheko n 10/28/2018 [facility]minaFl[facility] Javed [facility] Major Problem 2018-10-28 Memor ia depressive 15:48:36 l disorder, Major [place] single depressive episode, disorder, unspecifie single d episode, unspecifie d 10/28/2018 [facility] Allergy Problem 2018-10-28 Yamil brandi status to 15:48:36 l narcotic Allergy Elisa nn agent status to status narcotic agent status 10/28/2018 [facility] Hyperlipid Problem 2018-10-28 M emoria emia, 15:48:36 l unspecifie [place] d Hyperlipid emia, unspecifie d 10/28/2018 CarminaFlorence Javed [facility] 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-16 Mem oria 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: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 Cheko n 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 and uterus 10/16/2018 [facility] jail Problem 2018-05-15 Me moria (current) 15:12:19 l use of Long [place] aspirin term (current) use of aspirin 05/15/2018 [facility] Anemia, Problem 2018-06-06 Yamil brandi unspecifie 12:26:54 l d Anemia, Arthur unspecifie d 06/06/2018 [facility] Essential Problem 2018-05-02 Me moria (primary) 13:32:53 l hypertensi [place] on Essential (primary) hypertensi on 05/02/2018 [facility] Altered Problem 2018-05-20 Yamil brandi mental 16:43:34 l status, Altered [place] unspecifie mental d status, unspecifie d 05/20/2018 [facility] Hyperlipid Problem Resolve 2018-10-28 Memoria emia d 15:48:36 l (disorder) [place] Hyperlipid emia (disorder) Resolved Problem 10/28/2018 [facility], [place] None Problem Resolve 2018-10-28 Yamil brandi (qualifier d 15:48:36 l value) None Arthur (qualifier value) Resolved Problem 10/28/2018 [facility], [facility], [facility] Anemia Problem Active 2018-10-28 Memor ia (disorder) 15:48:36 l Anemia Arthur (disorder) Active Problem 10/28/2018 [facility], [place] Dysmenorrh Problem Active 2018-10-28 M emoria ea 15:48:36 l (disorder) [place] Dysmenorrh ea (disorder) Active Problem 10/28/2018 [facility], [place] Menorrhagi Problem Active 2018-10-28 M emoria a 15:48:36 l (finding) Arthur Menorrhagi a (finding) Active Problem 10/28/2018 [facility], [place] Uterine Problem Active 2018-10-28 Yamil brandi leiomyoma 15:48:36 l (disorder) 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 10/28/2018 [facility], [place] History of Past Illness Condition Condition Condition Status Onset Resolution Last Treating Co mments Source Name Details Category Date Date Treatment Clinician Date Anxiety Problem 2018-2018-10-28 2018-10-28 Memoria disorder, -16 15:48:36 15:48:36 l unspecifie Anxiety 06:00: Her szymanski d disorder, 00 unspecifie d 04/10/2018 10/28/2018 [facility] Chest Problem 2018-2018-10-16 2018-10-16 M emoria pain, 03-29 15:24:24 15:24:24 l unspecifie Chest 06:00: Elisa nn d pain, 00 unspecifie d 03/29/2018 10/16/2018 [facility] Myalgia Problem 2018-06-06 2018-06-06 Memoria 11-17 12:26:54 12:26:54 l Myalgia 05:00: [place] 00 11/17/2017 06/06/2018 [facility] Shortness Problem 2018-06-06 2018-06-06 Memoria of breath 11-17 12:26:54 12:26:54 l 05:00: Arthur Shortness 00 of breath 11/17/2017 06/06/2018 [facility] Disorienta Problem 2018-05-20 2018-05-20 Memoria tion, 8 16:43:34 16:43:34 l unspecifie 05:00: [place] n d Disorienta 00 tion, unspecifie d 10/31/2017 05/20/2018 [facility] Gastro-eso Problem 2018-05-15 2018-05-15 Memoria phageal 8 15:12:19 15:12:19 l reflux 05:00: [place] disease Gastro-eso 00 without phageal esophagiti reflux s disease without esophagiti s 10/26/2017 05/15/2018 [facility] Calculus Problem 2018-05-02 2018-05-02 Memoria of ureter 10-13 13:32:53 13:32:53 l Calculus 05:00: Che[place] n of ureter 00 10/13/2017 05/02/2018 [facility] Unspecifie Problem 2018-05-02 2018-05-02 Memoria d renal 10-13 13:32:53 13:32:53 l colic 05:00: [place] Unspecifie 00 d renal colic 10/13/2017 05/02/2018 [facility] Discharge Problem 2015-032016-03-20 2016-03-20 Memoria Diagnosis: 2- 04:09:49 04:09:49 l Acute URI 06:00: [place] Discharge 00 Diagnosis: Acute URI 03/17/2016 03/20/2016 [facility] Discharge Problem 2015-032016-03-20 2016-03-20 Memoria Diagnosis: 2- 04:09:49 04:09:49 l Acute UTI 06:00: Arthur Discharge 00 Diagnosis: Acute UTI 03/17/2016 03/20/2016 [facility] Discharge Problem 2015-08-06 2015-08-06 Memoria Diagnosis: 5- 04:50:15 04:50:15 l Pain, arm, 05:00: [place] n right Discharge 00 Diagnosis: Pain, arm, right 08/03/2015 08/06/2015 [facility] Discharge Problem 2014-11-06 2014-11-06 Memoria Diagnosis: 11-03 07:57:24 07:57:24 l Microcytic 05:00: [place] anemia Discharge 00 Diagnosis: Microcytic anemia 11/03/2014 11/06/2014 [facility] Discharge Problem 2014-11-06 2014-11-06 Memoria Diagnosis: 11-03 07:57:24 07:57:24 l Chest pain 05:00: [place] n Discharge 00 Diagnosis: Chest pain 11/03/2014 11/06/2014 [facility] Allergies, Adverse Reactions, Alerts Allergy Allergy Status Severity Reaction(s) Onset Inactive Treating Comm ents Source Name Type Date Date Clinician Vicodin Vicodin Active Memoria l Arthur Social History Social Habit Start Date Stop Date Quantity Comments Source Social History 2015-08-03 2015-08-03 [facility] Tegan gillespie 14:56:09 14:56:09 Medications Ordered Filled Start Stop Current Ordering Indication Dosage Frequency Signature Comments Components Source Medication Medication Date Date Medication? Clinician (SIG) Name Name Clonazepam No Notes: Memor ia 1-17 (Same As: l 01:19: KlonoPIN) Arthur 00 ibuprofen No 800 mg = 1 Me moria 800 mg oral 8-25 tab, PO, l tablet 05:53: Q8H, # 30 Cheko n 00 tab, 0 Refill(s) Sodium 2018- No 1,000 mL, Memori a Chloride 8-25 1000 l 0.9% 03:04: ml/hr, Arthur (Bolus) IV 00 Infuse Over: 1 hr, Route: IV, 1,000, Drug form: INJ, ONCE, Priority: STAT, Dosing Weight 68.182 kg, Start date: 11/16/17 22:04:00 CDT, Stop date: 11/16/17 22:04:00 CDT Saline No Notes: Memoria Flush 0.9% 8-25 (Same as: l 03:01: BD Arthur 00 Posiflush) Saline No Notes: Memoria Flush 0.9% 8-08 (Same as: l 20:09: BD [place] 00 Posiflush) Maalox No Notes: Memoria Regular 10-26 (Same As: l Strength 14:00: Tums) Arthur TAB 00 Calcium Carbonate 500 mg = 200 mg elemental calcium Dose = mg calcium carbonate ( mg elemental calcium) Famotidine Yes 40 mg = 1 Me moria 40 MG Oral 10-26 tab, PO, l Tablet 07:23: Daily, # [place] [Pepcid] 00 30 tab, 0 Refill(s) Lidocaine No Notes: Memori a Viscous 2% 10-26 (Same as: l mucous 06:59: Xylocaine) Elisa nn membrane 00 solution Reglan No Notes: Memoria 10-26 (Same as: l 06:17: Reglan) Arthur 00 Maalox No Notes: Memoria Regular 10-26 (Same As: l Strength 06:12: Tums) [place] TAB 00 Calcium Carbonate 500 mg = 200 mg elemental calcium Dose = mg calcium carbonate ( mg elemental calcium) Aspirin No Notes: Memoria 10-26 Take with l 04:18: food. Arthur 00 ketOROLAC No 30 mg, Memori a 30 mg/mL 10-13 Route: l injectable 17:11: IVP, Drug He rmann solution 00 form: INJ, ONCE, Dosing Weight 76, kg, Priority: STAT, Start date: 10/13/17 12:11:00 CDT, Stop date: 10/13/17 12:11:00 CDT naproxen No 500 mg = 1 Mem oria 500 mg oral - tab, PO, l tablet 17:05: Q12H, PRN Cheko n 00 Pain, X 10 day, # 20 tab, 0 Refill(s) Morphine No 2 mg, 1 Memori a 7-21 mL, Route: l 14:54: IVP, Drug [place] 00 form: SOLN, ONCE, Dosing Weight 76, kg, Priority: STAT, Start date: 10/13/17 9:54:00 CDT, Stop date: 10/13/17 9:54:00 CDT Ondansetron No Notes: Yamil brandi 10-13 (Same as: l 14:54: Zofran) Arthur 00 MEDICATION WASTE Product Size: 4 mg Product Wasted: ___ mg Sodium No 1,000 mL, Memori a Chloride 10-13 1000 l 0.9% 14:54: ml/hr, [place] (Bolus) IV 00 Infuse Over: 1 hr, Route: IV, 1,000, Drug form: INJ, ONCE, Priority: STAT, Dosing Weight 76 kg, Start date: 10/13/17 9:54:00 CDT, Stop date: 10/13/17 9:54:00 CDT Saline No Notes: Memoria Flush 0.9% 10-13 (Same as: l 14:54: BD Arthur 00 Posiflush) tramadol Yes 50 mg = 1 Yamil brandi hydrochlori 2-07 tab, PO, l de 50 MG 19:27: Q6H, PRN Elisa nn Oral Tablet 00 Pain, X 10 day, # 40 tab, 0 Refill(s) Mylicon No Notes: Memoria 2-06 (Same as: l 19:00: Mylicon) [place] Ondansetron No Notes: Yamil brandi 2-06 (Same as: l 16:57: Zofran) Arthur 00 MEDICATION WASTE Product Size: 4 mg Product Wasted: ___ mg Morphine No Notes: Memoria 2-06 (Same l 16:57: as:MORPhin Arthur e Sulfate) Docusate No Notes: Memoria 2-06 (Same as: l 16:57: Colace) [place] (Do Not Crush) Diphenhydra No Notes: Yamil brandi mine 2-06 (Same as: l 16:57: Benadryl) Arthur 00 Calcium No 1,000 mL, Memor ia Chloride 2-06 Rate: 125 l 0.0014 16:57: ml/hr, Arthur MEQ/ML / 00 Infuse Potassium over: 8 Chloride hr, Route: 0.004 IV, Dosing MEQ/ML / Weight 75 Sodium kg, Total Chloride Volume: 0.103 1,000, MEQ/ML / Start Sodium date: Lactate 05/01/16 0.028 10:57:00 MEQ/ML [employer], Injectable Duration: Solution 30 day, Stop date: 05/31/16 10:56:00 [employer] ondansetron No Route: IV, Memoria (ANES) 05-01 Drug form: l 16:05: INJ, ONCE, Stop date: 05/01/16 10:05:00 [employer] glycopyrrol No Route: IV, Memoria ate (ANES) 05-01 Drug form: l 16:05: INJ, ONCE, Stop date: 05/01/16 10:05:00 [employer] neostigmine No Route: IV, Memoria (ANES) 05-01 Drug form: l 16:05: INJ, ONCE, Stop date: 05/01/16 10:05:00 [employer] ketOROLAC No IV, ONCE Yamil brandi (ANES) 05-01 l 16:05: 00 Calcium No 1,000 mL, Memor ia Chloride 05-01 Rate: 125 l 0.0014 16:01: ml/hr, MEQ/ML / 00 Infuse Potassium over: 8 Chloride hr, Route: 0.004 IV, Dosing MEQ/ML / Weight 75 Sodium kg, Total Chloride Volume: 0.103 1,000, MEQ/ML / Start Sodium date: Lactate 05/01/16 0.028 10:01:00 MEQ/ML [employer], Injectable Duration: Solution 30 day, Stop date: 05/31/16 10:00:00 [employer] Labetalol No Notes: Memori a 2- (Same as: l 16:01: Normodyne, Trandate) Push over 2 minutes Give bolus over 2-3 minutes. Hydromorpho No Notes: Yamil brandi ne - Same as l 16:01: Dilaudid Flumazenil No Notes: Memor ia 2- (Same as: l 16:01: Romazicon) Naloxone No Notes: Memoria 05-01 Same as l 16:01: Narcan Ondansetron No Notes: Yamil brandi 05-01 (Same as: l 16:01: Zofran) MEDICATION WASTE Product Size: 4 mg Product Wasted: ___ mg Morphine No Notes: Memoria 05-01 (Same l 16:01: as:MORPhin e Sulfate) Acetaminoph No 1,000 mg, M emoria en 05-01 Route: l 16:01: IVPB, Drug form: INJ, ONCE, Dosing Weight 74.091, kg, PRN Pain Score 1-3, Start date: 05/01/16 10:01:00 [employer], Duration: 1 doses or times, Stop date: Limited # of times Ketorolac No 4 days Memor ia 05-01 l 16:01: MEDICATION WASTE Product Size: 30 mg Product Wasted: ___ mg acetaminoph No Route: IV, Memoria en (ANES) 05-01 Drug form: l (ANES) 15:38: INJ, Start Elisa date: 05/01/16 9:38:00 [employer], Stop date: 05/01/16 10:38:00 [employer] hydromorpho No Route: IV, Memoria ne (ANES) 05-01 Drug form: l 15:02: INJ, ONCE, Stop date: 05/01/16 9:02:00 [employer] dexamethaso No Route: IV, Memoria ne (ANES) 05-01 Drug form: l 14:37: INJ, ONCE, Stop date: 05/01/16 8:37:00 [employer] fentaNYL No Route: IV, Mem oria (ANES) 05-01 Drug form: l 14:37: INJ, ONCE, Arthur 00 Stop date: 05/01/16 8:37:00 [employer] lidocaine No Route: IV, Me moria (ANES) 05-01 Drug form: l 14:37: INJ, ONCE, Stop date: 05/01/16 8:37:00 [employer] propofol 2017-0 No Route: IV, Mem oria (ANES) 05-01 Drug form: l 14:37: INJ, ONCE, Stop date: 05/01/16 8:37:00 [employer] midazolam 2016- No Route: IV, Me moria (ANES) 05-01 Drug form: l 14:37: SOLN, 00 ONCE, Stop date: 05/01/16 8:37:00 [employer] rocuronium No Route: IV, M emoria (ANES) 05-01 Drug form: l 14:37: INJ, ONCE, Stop date: 05/01/16 8:37:00 [employer] metoclopram No Route: IV, Memoria eda (ANES) 05-01 Drug form: l 14:37: INJ, ONCE, Stop date: 05/01/16 8:37:00 [employer] famotidine No Route: IV, M emoria (ANES) 05-01 Drug form: l 14:22: INJ, ONCE, Stop date: 05/01/16 8:22:00 [employer] phenylephri No Route: IV, Memoria ne (ANES) 05-01 Drug form: l 14:22: INJ, ONCE, Stop date: 05/01/16 8:22:00 [employer] ceFAZolin No Route: IV, Me moria (ANES) 05-01 Drug form: l 14:11: INJ, ONCE, Stop date: 05/01/16 8:11:00 [employer] LR 1000 mL No Route: IV, M emoria INJ (ANES) 05-01 Total l 13:35: Volume: 1,000, Start date: 05/01/16 7:35:00 [employer], Stop date: 05/01/16 8:35:00 [employer] Calcium No 1,000 mL, Memor ia Chloride 05-01 Rate: 25 l 0.0014 12:57: ml/hr, [place] MEQ/ML / 00 Infuse Potassium over: 40 Chloride hr, Route: 0.004 IV, Dosing MEQ/ML / Weight Sodium 74.091 kg, Chloride Total 0.103 Volume: MEQ/ML / 1,000, Sodium Start Lactate date: 0.028 05/01/16 MEQ/ML 6:57:00 Injectable [employer], Solution Duration: 30 day, Stop date: 05/31/16 6:56:00 [employer] ceFAZolin No Notes: Memori a 2-06 Same as: l 12:00: Ancef Arthur 00 BD Normal No Notes: Memori a Saline - (Same as: l Flush 12:00: BD Arthur Posiflush) Esomeprazol Yes 20 mg = 1 M emoria e 20 MG 1-30 cap, PO, l Enteric 16:18: Daily, 0 [place] Coated 00 Refill(s) Capsule [Nexium] ferrous No 325 mg = 1 Yamil brandi sulfate 325 1-30 tab, PO, l mg oral 16:18: Daily, 0 [place] n enteric 00 Refill(s) coated tablet Sulfamethox 2015-03 Yes 1 tab, PO, Memoria azole 800 2-24 BID, X 7 l MG / 00:52: day, # 14 [place] Trimethopri 00 tab, 0 m 160 MG Refill(s) Oral Tablet [Bactrim] Motrin 2015-03 No 800 mg, Memoria 2-23 Route: PO, l 22:27: Drug form: Arthur 00 TAB, ONCE, Dosing Weight 72.727, kg, Priority: STAT, Start date: 03/17/16 16:27:00 [employer], Stop date: 03/17/16 16:27:00 [employer] Sodium 2015-03 No 1,000 mL, Memori a Chloride 2-23 2,000 l 0.154 22:27: ml/hr, Arthur MEQ/ML 00 Infuse Injectable Over: 30 Solution minutes, Route: IV, ONCE, Priority: STAT, Dosing Weight 72.727 kg, Start date: 03/17/16 16:27:00 [employer], Duration: 1 doses or times, Stop date: 03/17/16 16:27:00 [employer] Saline 2015-03 No Notes: Memoria Flush 0.9% 2 (Same as: l 22:27: BD [place] Posiflush) Acetaminoph Yes 1 tab, PO, Memoria en 300 MG / 5-10 Q6H, PRN l Codeine 16:03: Pain, X 7 Elisa nn Phosphate 00 day, # 28 30 MG Oral tab, 0 Tablet Refill(s) [Tylenol with Codeine #3] Cyclobenzap Yes 10 mg = 1 M emoria rine 5-10 tab, PO, l hydrochlori 16:02: TID, PRN He rmann de 10 MG 00 for spasm, Oral Tablet X 10 day, [Flexeril] # 30 tab, 0 Refill(s) acetaminoph No Notes: Do M emoria en-codeine 5-10 not exceed l #3 15:03: 4gm/day of Arthur acetaminop hen. (Same as: Tylenol with Codeine # 3) cyclobenzap No Notes: Yamil brandi rine 5-10 (Same As: l 15:03: Flexeril) Arthur Aspirin 81 Yes 81 mg = 1 Me moria MG Enteric 1-14 tab, PO, l Coated 22:58: Daily, # Arthur Tablet 00 90 tab, 3 Refill(s), other Aspirin 325 No Notes: (Do Memoria MG Enteric 1-14 Not Crush) l Coated 15:00: Do not [place] Tablet 00 crush or chew. Saline No Notes: Memoria Flush 0.9% 1-14 (Same as: l 03:00: BD [place] Posiflush) Sodium No 1,000 mL, Memori a Chloride 1-14 Rate: 125 l 0.154 01:28: ml/hr, [place] MEQ/ML 00 Infuse Injectable over: 8 Solution hr, Route: IV, Dosing Weight 80.455 kg, Total Volume: 1,000, Start date: 04/07/15 19:28:00, Duration: 30 day, Stop date: 05/07/15 19:27:00 metoprolol No Notes: Memor ia tartrate 1-14 (Same as: l 00:00: Lopressor) Arthur 00 Saline No Notes: Memoria Flush 0.9% 1-13 (Same as: l 20:15: BD Arthur 00 Posiflush) Nitroglycer No Notes: Yamil brandi in 04-07 (Same l 20:15: as:Nitroqu Arthur 00 ick, Nitrostat) "Do Not Crush" Sublingual tablet Sodium No 1,000 mL, Memori a Chloride 04-07 1,000 l 0.154 15:37: ml/hr, Arthur MEQ/ML 00 Infuse Injectable Over: 1 Solution hr, Route: IV, ONCE, Priority: STAT, Dosing Weight 80.455 kg, Start date: 04/07/15 9:37:00, Duration: 1 doses or times, Stop date: 04/07/15 9:37:00 Nitroglycer No Notes: Yamil brandi in 0.4 MG 04-07 (Same l Sublingual 13:25: as:Nitroqu H ermann Tablet 00 ick, Nitrostat) "Do Not Crush" Sublingual tablet Aspirin No Notes: Memoria 04-07 Take with l 13:23: food. [place] 00 Saline No Notes: Memoria Flush 0.9% 04-07 (Same as: l 13:23: BD [place] 00 Posiflush) Miralax No Notes: Memoria - Dissolve l 23:38: in 8 oz of Arthur 00 water or juice. (Same as: Miralax) Tylenol No Notes: Do Memor ia 11-06 not exceed l 23:35: 4 gm/day. Arthur 00 (Same as: Tylenol) Sulfamethox Yes 1 tab, PO, Memoria azole 800 8-14 BID, X 5 l MG / 15:31: day, # 10 [place] Trimethopri 00 tab, 0 m 160 MG Refill(s) Oral Tablet [Bactrim] ferrous Yes 325 mg, Memoria sulfate 325 8-14 PO, TID, # l MG Oral 14:52: 90 tab, 1 Elisa nn Tablet 00 Refill(s) ferrous No Notes: Memoria sulfate -14 Give with l 14:50: food. "Do [place] 00 Not Crush" nitroglycer No Notes: Yamil brandi in 0.4 mg 11-06 (Same l sublingual 01:34: as:Nitroqu H ermann tablet 00 ick, Nitrostat) "Do Not Crush" Sublingual tablet atropine No 0.5 mg, 5 Yamil brandi 8-14 mL, Route: l 01:34: IVP, Drug form: INJ, PRN, PRN Bradycardi a, Start date: 11/05/14 20:34:00, Duration: 30 day, Stop date: 12/05/14 20:33:00 Saline No Notes: Memoria Flush 0.9% 11-06 Same as: l 01:11: BD [place] Posiflush Sterile Sulfamethox No Notes: One Memoria azole 800 11-05 DS tablet l MG / 22:00: = Trimethopri 00 trimethopr m 160 MG im 160mg + Oral Tablet sulfametho [Bactrim] xazole 800 mg Dose based on trimethopr im component On empty stomach with a glass of water. 1 hr before meals (Same As: Bactrim DS, Septra DS) Ceftriaxone No 1 gm, Memor ia 11-05 Route: l 20:52: IVPB, Drug form: PDR/INJ, ONCE, Dosing Weight 71.364, kg, Priority: STAT, Start date: 11/05/14 15:52:00, Stop date: 11/05/14 15:52:00 Ketorolac No 30 mg, Memori a 11-05 Route: l 20:39: IVP, Drug form: INJ, ONCE, Dosing Weight 71.364, kg, Priority: STAT, Start date: 11/05/14 15:39:00, Stop date: 11/05/14 15:39:00 Morphine No 2 mg, Memoria 11-05 Route: l 20:20: IVP, Drug form: INJ, ONCE, Dosing Weight 71.364, kg, Priority: STAT, Start date: 11/05/14 15:20:00, Stop date: 11/05/14 15:20:00 Aspirin No 324 mg, Memoria 11-05 Route: PO, l 19:58: ONCE, Dosing Weight 71.364, kg, Priority: STAT, Start date: 11/05/14 14:58:00, Stop date: 11/05/14 14:58:00 Saline No Notes: Memoria Flush 0.9% 11-05 Same as: l 19:58: BD [place] Posiflush Sterile ferrous Yes 325 mg = 1 Yamil brandi sulfate 325 8-11 tab, PO, l mg oral 18:24: Daily, # Cheko n enteric 00 30 tab, 0 coated Refill(s) tablet Acetaminoph No 1 - 2 tab, Memoria en 300 MG / 11-03 PO, Q6H, l Codeine 18:24: PRN Pain, Elisa nn Phosphate 00 X 2 day, # 30 MG Oral 20 tab, 0 Tablet Refill(s) [Tylenol with Codeine #3] Acetaminoph No 1 tab, Yamil brandi en 300 MG / 11-03 Route: PO, l Codeine 15:14: Drug Form: Herm stevie Phosphate 00 TAB, 30 MG Oral Dosing Tablet Weight 77, [Tylenol kg, ONCE, with STAT, Codeine #3] Start date: 11/03/14 10:14:00, Stop date: 11/03/14 10:14:00 GI cocktail No Notes: Yamil brandi 11-03 G.I. l 13:51: Cocktail = Arthur 00 antacid with simethicon e 22.5 mL - lidocaine viscous 7.5 mL Morphine No Notes: Memoria -11 (Same l 13:51: as:MORPhin Arthur e Sulfate) Aspirin No Notes: Memoria 11-03 Take with l 13:50: food. Arthur Saline No Notes: Memoria Flush 0.9% 11-03 (Same as: l 13:50: BD [place] Posiflush) ibuprofen 2012-03 Yes Spencer 600 mg = 1 Me moria 600 mg oral 2-14 Fayrweathe tab, PO, l tablet 00:41: r Q6H, as [place] 00 needed for fever, take with food, # 30 tab, 0 Refill(s)t ziggy with food Tessalon 2012-03 Yes Spencer 100 mg = 1 Mem oria Perles 100 2-14 Fayrweathe cap, PO, l mg oral 00:40: r TID, # 21 Elisa nn capsule 00 cap, 0 Refill(s) ondansetron 2012-03 Yes Spencer 4 mg = 1 Me moria 4 mg oral 2-14 Fayrweathe tab, PO, l tablet, 00:40: r TID, [place] disintegrat 00 Nausea / ing Vomiting, Dissolve tab under tongue, # 10 tab, 0 Refill(s)D issolve tab under tongue ibuprofen 2012-03 No Spencer 600 mg, 1 Mem oria 2-14 Fayrweathe tab, l 00:19: r Route: PO, Arthur 00 Drug form: TAB, ONCE, Dosing Weight 72.727, kg, Priority: STAT, Start date: 03/07/13 18:19:00, Stop date: 03/07/13 18:19:00(S mirta as: Motrin) "Do Not Crush" Take with food. Tylenol 2012-03 No Spencer 975 mg, 3 Memor ia 2-13 Fayrweathe tab, l 23:29: r Route: PO, Arthur 00 Drug form: TAB, ONCE, Dosing Weight 72.727, kg, Priority: STAT, Start date: 03/07/13 17:29:00, Stop date: 03/07/13 17:29:00Do not exceed 4 gm/day. (Same as: Tylenol) ondansetron 2012-03 No Spencer 4 mg, 1 Mem oria 4 mg oral 2-13 Fayrweathe tab, l tablet, 21:40: r Route: PO, Herm stevie disintegrat 00 Drug form: ing TABDIS, ONCE, Dosing Weight 72.727, kg, Priority: STAT, Start date: 03/07/13 15:40:00, Stop date: 03/07/13 15:40:00(S mirta as: Zofran ODT) Zithromax 2012-03 Yes Carol A 250 mg = 1 Memoria Z-Onel 250 2-13 [place] tab, PO, l mg oral 17:57: er Daily, Arthur tablet 00 TAKE 2 TABLETS ON DAY 1; TAKE 1 TABLET ON DAYS 2 - 5, # 1 Pack, 0 Refill(s)T ZIGGY 2 TABLETS ON DAY 1; TAKE 1 TABLET ON DAYS 2 - 5 Naprosyn 2012-03 Yes Carol A 500 mg = 1 [facility] 500 mg oral 2-13 [place] tab, PO, l tablet 17:57: er BID, for Arthur 00 pain, # 20 tab, 0 Refill(s) Zofran ODT 2012-03 Yes Carol A 4 mg = 1 [facility] 4 mg oral 2-13 [place] tab, PO, l tablet, 17:57: er BID, [place] disintegrat 00 Nausea and ing Vomiting, Dissolve tab under tongue, # 10 tab, 0 Refill(s)D issolve tab under tongue Tessalon 2012-03 Yes Carol A 200 mg = 1 [facility] 200 mg oral 2-13 [place] cap, PO, l capsule 17:56: er TID, # 21 Elisa nn 00 cap, 0 Refill(s) morphine 2012-03 No Carol A 4 mg, 1 M emoria Sulfate 2-13 [place] mL, Route: l 15:37: er IVP, Drug form: INJ, ONCE, Dosing Weight 72.727, kg, Priority: STAT, Start date: 03/07/13 9:37:00, Stop date: 03/07/13 9:37:00(Sa me as:MORPhin e Sulfate) Zofran 2012-03 No Carol A 4 mg, 2 Mem oria 2-13 [place] mL, Route: l 15:37: er IVP, Drug form: INJ, ONCE, Dosing Weight 72.727, kg, Priority: STAT, Start date: 03/07/13 9:37:00, Stop date: 03/07/13 9:37:00(Sa me as: Zofran) acetaminoph 2012-03 No Carol A 650 mg, 2 Memoria en 2-13 [place] tab, l 15:37: er Route: PO, [place] 00 Drug form: TAB, ONCE, Dosing Weight 72.727, kg, Start date: 03/07/13 9:37:00, Stop date: 03/07/13 9:37:00Do not exceed 4 gm/day. (Same as: Tylenol) ceftriaxone 2012-03 No Carol A 1 gm, Memoria + Sodium 2-13 [place] Route: l Chloride 15:37: er IVPB, Drug Her szymanski 0.9% IV 100 00 form: mL PDR/INJ, ONCE, Dosing Weight 72.727, kg, Priority: STAT, Start date: 03/07/13 9:37:00, Stop date: 03/07/13 9:37:00([facility] As: Rocephin). Use with 100ml NS mini-bag PLUS and infuse over 30 min Sodium 2012-03 No Carol A 1,000 mL, M emoria Chloride 05-08 [place] Rate: l 0.9% 15:37: er 1,000 Arthur (Bolus) IV 00 ml/hr, 1,000 mL Infuse over: 1 hr, Route: IV, Dosing Weight 72.727 kg, Total Volume: 1,000, Priority: STAT, Start date: 03/07/13 9:37:00, Duration: 1 doses or times, Stop date: 03/07/13 10:36:00 Saline 2012-03 No Carol A 5 mL, Memor ia Flush 0.9% 05-08 [place] Route: l 15:37: er IVP, Drug [place] 00 Form: INJ, Dosing Weight 72.727, kg, PRN, PRN Line Flush, Start date: 03/07/13 9:37:00, Duration: 30 day, Stop date: 04/06/13 9:36:00([facility] as: BD Posiflush) acetaminoph 2012-03 No Viral 1,000 mg, M emoria en 05-08 Binu 2 tab, l 15:19: Cesta Route: PO, Cheko n 00 Drug form: TAB, ONCE, Dosing Weight 72.727, kg, Start date: 03/07/13 9:19:00, Stop date: 03/07/13 9:19:00Max acetaminop hen 4000 mg/day (4 gm/day). (Same as: Tylenol Extra Strength) Ultram 50 Yes Garrett 50 mg, 1 Memoria mg oral 1-10 Eliezer II tab, PO, l tablet 08:09: Q4H, PRN, Che[place] n 30 20 tab, pain, Substituti on Allowed amoxicillin Yes Garrett 500 mg, 1 Memoria 500 mg oral 1-10 Eliezer II tab, PO, l tablet 08:09: TID, 30 [place] 15 tab, Substituti on Allowed, TAB Vital Signs Vital Name Observation Time Observation Value Comments Source Systolic (mm Hg) 2018-04-11 01:42:00 Yamil rial [place] Diastolic (mm Hg) 2018-04-11 01:42:00 Mem orial [place] Heart Rate 2018-04-11 01:42:00 [facility] Respitory Rate 2018-04-11 01:42:00 Memori al [place] Weight 2018-04-10 23:32:00 [facility] Systolic (mm Hg) 2018-04-10 23:32:00 Yamil rial [place] Diastolic (mm Hg) 2018-04-10 23:32:00 Mem orial [place] Respitory Rate 2018-04-10 23:32:00 Memori al [place] Heart Rate 2018-04-10 23:32:00 [facility] Temperature Oral (F) 2018-04-10 23:32:00 98.4 F [facility] Systolic (mm Hg) 2018-03-29 23:00:00 Yamil rial [place] Diastolic (mm Hg) 2018-03-29 23:00:00 Mem orial [place] Respitory Rate 2018-03-29 23:00:00 Memori al [place] Heart Rate 2018-03-29 23:00:00 [facility] Weight 2018-03-29 20:56:00 [facility] [place] BMI Calculated 2018-03-29 20:56:00 [facility] al [facility] Height 2018-03-29 20:56:00 162.56 cm [facility] [place] Systolic (mm Hg) 2018-03-29 20:56:00 Yamil rial [place] Diastolic (mm Hg) 2018-03-29 20:56:00 Mem orial [place] Heart Rate 2018-03-29 20:56:00 [facility] Respitory Rate 2018-03-29 20:56:00 Mem[facility] al [place] Temperature Oral (F) 2018-03-29 20:56:00 98.9 F [facility] [place] Heart Rate 2017-11-17 06:13:00 [facility] Systolic (mm Hg) 2017-11-17 06:13:00 Yamil rial Arthur Diastolic (mm Hg) 2017-11-17 06:13:00 Mem orial [place] Temperature Oral (F) 2017-11-17 06:13:00 98 F [facility] Respitory Rate 2017-11-17 06:13:00 Mem[facility] al [place] Heart Rate 2017-11-17 05:22:00 [facility] [place] Respitory Rate 2017-11-17 05:22:00 [facility] al [place] Systolic (mm Hg) 2017-11-17 05:22:00 Yamil rial Arthur Diastolic (mm Hg) 2017-11-17 05:22:00 Mem orial [place] Weight 2017-11-17 02:49:00 [facility] [place] Heart Rate 2017-11-17 02:49:00 [facility] [place] Respitory Rate 2017-11-17 02:49:00 Memori al [place] Temperature Oral (F) 2017-11-17 02:49:00 98 F [facility] Systolic (mm Hg) 2017-11-17 02:49:00 Yamil rial Arthur Diastolic (mm Hg) 2017-11-17 02:49:00 Mem orial [place] Temperature Oral (F) 2017-10-31 23:23:00 98.4 F [facility] Systolic (mm Hg) 2017-10-31 23:23:00 Yamil rial [place] Diastolic (mm Hg) 2017-10-31 23:23:00 Mem orial [place] Respitory Rate 2017-10-31 23:23:00 Memori al [place] Temperature Oral (F) 2017-10-31 21:50:00 98.8 F [facility] [place] Systolic (mm Hg) 2017-10-31 21:50:00 Yamil rial Arthur Diastolic (mm Hg) 2017-10-31 21:50:00 Mem orial [place] Respitory Rate 2017-10-31 21:50:00 Memori al [place] Systolic (mm Hg) 2017-10-31 21:20:00 Yamil rial [place] Diastolic (mm Hg) 2017-10-31 21:20:00 Mem orial [place] Respitory Rate 2017-10-31 21:20:00 Memori al [place] BMI Calculated 2017-10-31 20:04:00 [facility] al [place] Weight 2017-10-31 20:04:00 [facility] [place] Height 2017-10-31 20:04:00 162.56 cm [facility] [place] Temperature Oral (F) 2017-10-31 20:04:00 99.6 F [facility] Heart Rate 2017-10-31 20:04:00 [facility] [place] Systolic (mm Hg) 2017-10-26 07:51:00 Yamil rial [place] Diastolic (mm Hg) 2017-10-26 07:51:00 Mem orial [place] Respitory Rate 2017-10-26 07:51:00 Memori al [place] Heart Rate 2017-10-26 07:51:00 [facility] Temperature Oral (F) 2017-10-26 07:51:00 98.2 F [facility] [place] Weight 2017-10-26 00:18:00 [facility] Respitory Rate 2017-10-26 00:18:00 Memori al [place] Heart Rate 2017-10-26 00:18:00 [facility] Temperature Oral (F) 2017-10-26 00:18:00 98.2 F [facility] Systolic (mm Hg) 2017-10-26 00:18:00 Yamil rial Arthur Diastolic (mm Hg) 2017-10-26 00:18:00 Mem orial [facility] Heart Rate 2017-10-13 17:16:00 [facility] Respitory Rate 2017-10-13 17:16:00 Memori al [place] Systolic (mm Hg) 2017-10-13 17:16:00 Yamil rial Arthur Diastolic (mm Hg) 2017-10-13 17:16:00 Mem orial [place] Temperature Oral (F) 2017-10-13 17:16:00 98.2 F [facility] [place] Temperature Oral (F) 2017-10-13 15:29:00 98.2 F [facility] [place] Heart Rate 2017-10-13 15:29:00 [facility] [place] Systolic (mm Hg) 2017-10-13 15:29:00 Yamil rial Arthur Diastolic (mm Hg) 2017-10-13 15:29:00 Mem orial [place] Respitory Rate 2017-10-13 15:29:00 Memori al [place] Weight 2017-10-13 14:33:00 [facility] BMI Calculated 2017-10-13 14:33:00 Memori al Arthur Height 2017-10-13 14:33:00 162.56 cm [facility] [place] Systolic (mm Hg) 2017-10-13 14:33:00 Yamil rial Arthur Diastolic (mm Hg) 2017-10-13 14:33:00 Mem orial [place] Heart Rate 2017-10-13 14:33:00 [facility] [place] Respitory Rate 2017-10-13 14:33:00 Memori al [place] Temperature Oral (F) 2017-10-13 14:33:00 98.4 F [facility] Heart Rate 2016-05-02 18:54:00 [facility] [place] Systolic (mm Hg) 2016-05-02 18:54:00 Yamil rial [place] Diastolic (mm Hg) 2016-05-02 18:54:00 Mem orial [place] Respitory Rate 2016-05-02 18:54:00 Memori al [place] Temperature Oral (F) 2016-05-02 18:54:00 98.2 F [facility] [place] Systolic (mm Hg) 2016-05-02 13:02:00 Yamil rial [place] Diastolic (mm Hg) 2016-05-02 13:02:00 Mem orial [facility] Heart Rate 2016-05-02 13:02:00 [facility] [place] Respitory Rate 2016-05-02 13:02:00 Memori al [place] Temperature Oral (F) 2016-05-02 13:02:00 98.9 F [facility] Systolic (mm Hg) 2016-05-02 11:09:00 Yamil rial [place] Diastolic (mm Hg) 2016-05-02 11:09:00 Mem orial [place] Heart Rate 2016-05-02 11:09:00 [facility] [place] Respitory Rate 2016-05-02 11:09:00 Memori al [place] Temperature Oral (F) 2016-05-02 11:09:00 98.2 F [facility] [place] BMI Calculated 2016-05-01 13:16:00 Memori al [place] Weight 2016-05-01 13:16:00 [facility] [place] Height 2016-04-24 16:15:00 162.56 cm [facility] [place] Respitory Rate 2016-03-18 00:41:00 Memori al [place] Systolic (mm Hg) 2016-03-18 00:41:00 Yamil rial [place] Diastolic (mm Hg) 2016-03-18 00:41:00 Mem orial [place] Temperature Oral (F) 2016-03-18 00:41:00 98.7 F [facility] [place] Heart Rate 2016-03-18 00:41:00 [facility] [place] Weight 2016-03-17 22:25:00 [facility] BMI Calculated 2016-03-17 22:25:00 Memori al [facility] Height 2016-03-17 22:25:00 162.56 cm [facility] [place] Temperature Oral (F) 2016-03-17 22:25:00 102.4 F [facility] Systolic (mm Hg) 2016-03-17 22:25:00 Yamil rial Arthur Diastolic (mm Hg) 2016-03-17 22:25:00 Mem orial [place] Heart Rate 2016-03-17 22:25:00 [facility] [place] Respitory Rate 2016-03-17 22:25:00 Memori al [place] Temperature Oral (F) 2015-08-03 15:47:00 98.1 F [facility] [place] Respitory Rate 2015-08-03 15:47:00 Memori al [place] Systolic (mm Hg) 2015-08-03 15:47:00 Yamil rial Arthur Diastolic (mm Hg) 2015-08-03 15:47:00 Mem orial [facility] Heart Rate 2015-08-03 15:47:00 [facility] [place] Systolic (mm Hg) 2015-08-03 14:34:00 Yamil rial [place] Diastolic (mm Hg) 2015-08-03 14:34:00 Mem orial [place] Height 2015-08-03 14:34:00 165.1 cm [facility] [place] Heart Rate 2015-08-03 14:34:00 [facility] Respitory Rate 2015-08-03 14:34:00 Memori al Arthur BMI Calculated 2015-08-03 14:34:00 Memori al [place] Weight 2015-08-03 14:34:00 [facility] Temperature Oral (F) 2015-08-03 14:34:00 98.1 F [facility] Diastolic (mm Hg) 2015-04-08 21:27:00 Mem orial Arthur Heart Rate 2015-04-08 21:27:00 [facility] Respitory Rate 2015-04-08 21:27:00 Memori al [place] Systolic (mm Hg) 2015-04-08 21:27:00 Yamil rial Arthur Weight 2015-04-08 19:07:00 [facility] Diastolic (mm Hg) 2015-04-08 17:49:00 Mem orial Arthur Respitory Rate 2015-04-08 17:49:00 Memori al [facility] Heart Rate 2015-04-08 17:49:00 [facility] [place] Systolic (mm Hg) 2015-04-08 17:49:00 Yamil rial [place] Heart Rate 2015-04-08 13:34:00 [facility] [place] Respitory Rate 2015-04-08 13:34:00 Memori al [place] Systolic (mm Hg) 2015-04-08 13:34:00 Yamil rial Arthur Diastolic (mm Hg) 2015-04-08 13:34:00 Mem orial Arthur Temperature Oral (F) 2015-04-08 10:00:00 97.5 F [facility] Arthru Temperature Oral (F) 2015-04-08 06:00:00 97.9 F [facility] [place] Temperature Oral (F) 2015-04-08 02:00:00 98.6 F [facility] BMI Calculated 2015-04-07 23:28:00 Mem[facility] al Arthur Weight 2015-04-07 23:28:00 [facility] Height 2015-04-07 23:28:00 165.1 cm [facility] Weight 2015-04-07 13:01:00 [facility] BMI Calculated 2015-04-07 13:01:00 Memori al Arthur Height 2015-04-07 13:01:00 165.1 cm [facility] Respitory Rate 2014-11-07 17:53:00 Memori al [place] Systolic (mm Hg) 2014-11-07 17:53:00 Yamil rial [place] Diastolic (mm Hg) 2014-11-07 17:53:00 Mem orial [place] Heart Rate 2014-11-07 17:53:00 [facility] Temperature Oral (F) 2014-11-07 17:53:00 98.6 F [facility] Systolic (mm Hg) 2014-11-07 12:53:00 Yamil rial Arthur Diastolic (mm Hg) 2014-11-07 12:53:00 Mem orial [place] Heart Rate 2014-11-07 12:53:00 [facility] [place] Respitory Rate 2014-11-07 12:53:00 Memori al [place] Temperature Oral (F) 2014-11-07 12:53:00 98.9 F [facility] [place] Systolic (mm Hg) 2014-11-07 09:00:00 Yamil rial Arthur Diastolic (mm Hg) 2014-11-07 09:00:00 Mem orial Arthur Temperature Oral (F) 2014-11-07 09:00:00 98.1 F [facility] [place] Heart Rate 2014-11-07 09:00:00 [facility] Respitory Rate 2014-11-07 09:00:00 Memori al [place] BMI Calculated 2014-11-05 19:27:00 Memori al [place] Weight 2014-11-05 19:27:00 [facility] Height 2014-11-05 19:27:00 165.1 cm [facility] [place] Temperature Oral (F) 2014-11-03 18:30:00 98.0 F [facility] [place] Systolic (mm Hg) 2014-11-03 18:30:00 Yamil rial Arthur Diastolic (mm Hg) 2014-11-03 18:30:00 Mem orial [place] Respitory Rate 2014-11-03 18:30:00 Memori al [place] Temperature Oral (F) 2014-11-03 17:20:00 98.2 F [facility] Respitory Rate 2014-11-03 17:20:00 Memori al [place] Systolic (mm Hg) 2014-11-03 17:20:00 Yamil rial Arthur Diastolic (mm Hg) 2014-11-03 17:20:00 Mem orial [place] Systolic (mm Hg) 2014-11-03 15:30:00 Yamil rial Arthur Diastolic (mm Hg) 2014-11-03 15:30:00 Mem orial [facility] Respitory Rate 2014-11-03 15:30:00 Memori al [place] Heart Rate 2014-11-03 13:34:00 [facility] Weight 2014-11-03 13:34:00 [facility] Temperature Oral (F) 2014-11-03 13:34:00 98.2 F [facility] [place] Diastolic (mm Hg) 2013-03-08 01:37:00 Mem orial Arthur Heart Rate 2013-03-08 01:37:00 [facility] [place] Temperature Oral (F) 2013-03-08 01:37:00 100.1 F [facility] Systolic (mm Hg) 2013-03-08 01:37:00 Yamil rial Arthur Respitory Rate 2013-03-08 01:37:00 Memori al [place] Temperature Oral (F) 2013-03-08 00:54:00 102.8 F [facility] Temperature Oral (F) 2013-03-08 00:22:00 103.1 F [facility] [place] Systolic (mm Hg) 2013-03-07 23:25:00 Yamil rial [place] Respitory Rate 2013-03-07 23:25:00 Memori al [place] Diastolic (mm Hg) 2013-03-07 23:25:00 Mem orial [place] Heart Rate 2013-03-07 23:25:00 [facility] Systolic (mm Hg) 2013-03-07 20:11:00 Yamil rial Arthur Diastolic (mm Hg) 2013-03-07 20:11:00 Mem orial [place] Respitory Rate 2013-03-07 20:11:00 Memori al [place] Heart Rate 2013-03-07 20:11:00 [facility] Diastolic (mm Hg) 2013-03-07 18:24:00 Mem orial [place] Respitory Rate 2013-03-07 18:24:00 Memori al [place] Systolic (mm Hg) 2013-03-07 18:24:00 Yamil rial [place] Heart Rate 2013-03-07 18:24:00 [facility] [place] Temperature Oral (F) 2013-03-07 18:24:00 99.1 F [facility] [place] Systolic (mm Hg) 2013-03-07 17:30:00 Yamil rial Arthur Diastolic (mm Hg) 2013-03-07 17:30:00 Mem orial [facility] Heart Rate 2013-03-07 17:30:00 [facility] [place] Respitory Rate 2013-03-07 17:30:00 Memori al [place] Systolic (mm Hg) 2013-03-07 15:59:00 Yamil rial Arthur Diastolic (mm Hg) 2013-03-07 15:59:00 Mem orial [facility] Heart Rate 2013-03-07 15:59:00 [facility] [place] Respitory Rate 2013-03-07 15:59:00 Memori al [place] Temperature Oral (F) 2013-03-07 15:16:00 101.2 F [facility] Height 2012-04-04 03:37:00 162.56 cm [facility] Weight 2012-04-04 03:37:00 [facility] [place] Procedures Procedure Date / Time Performed Performing Clinician [facility] e Laparoscopic hysterectomy 2016-05-01 06:00:00 Me morial [facility] [place] section<sup>1</sup> Encounters Start End Encounter Admission Attending Care Care Encounter Source Date/Time Date/Time Type Type Clinicians Facility Department ID 2020-05-05 2020-05-05 Emergency Banks, [facility] [id number] 15:10:00 16:55:00 [place] [id number] [place] [id number] [place] [id number] 2019-10-04 2019-10-04 Emergency Ranjit, [facility] [id number] 16:26:50 19:58:00 Peace Louise [id number] [place] [id number] [place] [id number] 2018-04-10 2018-04-10 [facility] [id number] 17:22:00 19:59:00 Jeremiah Adkins 15 2018-03-29 2018-03-29 Outpatient Taj, [facility] [id number] 14:53:00 17:30:00 Arlin Wang 14 2017-11-16 2017-11-17 Outpatient Amalia, [facility] [id number] 21:34:00 01:15:00 Ambica 13 2017-11-16 2017-11-16 Emergency E MHBL MHBL [id number] MHBL 21:34:00 21:34:00 2017-10-31 2017-10-31 Outpatient Aznaurova-A [facility] [id number] 14:57:00 18:33:00 gardenia, 12 Lalita Mark 2017-10-25 2017-10-26 [facility] [id number] 19:14:00 02:52:00 Juve Ramirez 2017-10-13 2017-10-13 Outpatient Christy, [facility] [id number] 09:30:00 12:24:00 Young Guthrie 2017-10-13 2017-10-13 Outpatient Christy, [facility] [id number] 09:30:00 12:24:00 Young Guthrie 2016-05-01 2016-05-02 Outpatient Darren Mars [facility] [id number] 05:36:30 15:50:00 T 09 2016-03-17 2016-03-17 [place]patient [place], [place] [id number] 15:57:00 19:05:00 Asim Sands 07 2015-08-03 2015-08-03 Outpatient Arora, [facility] [id number] 09:32:00 11:11:00 Sofiya 06 Evelyn 2015-04-07 2015-04-08 Outpatient Rodriguez, [facility] [id number] 07:00:00 17:27:00 [place] 05 2014-11-05 2014-11-07 Outpatient Nabor Snow [facility] [id number] 14:22:00 16:40:00 Jude 04 2014-11-03 2014-11-03 Outpatient Ruslan, [facility] [id number] 08:30:00 13:40:00 Joy 03 [place] 2013-03-07 2013-03-07 Outpatient [facility] [id number] Memoria 14:11:00 20:05:00 [place] [facility] l [facility] 2013-03-07 2013-03-07 Outpatient [facility] [id number] Memoria 09:06:00 12:26:00 [facility] Arthur l [facility] Results Test Description Test Time Test Comments Results Result Sourc e Comments IMMUNOLOGY 2018-03-29 Negative [facility] 22:31:00 *NA*(03/29/18 [place] 4:31 PM) CARDIAC ENZYMES 2018-03-29 <0.02 [facility] 21:03:00 Arthur ELECTROLYTES 2018-03-29 14.2 [facility] 21:03:00 [place] ELECTROLYTES 2018-03-29 11.2 [facility] 21:03:00 [place] ELECTROLYTES 2018-03-29 4.2 [facility] 21:03:00 [place] ELECTROLYTES 2018-03-29 139 [facility] 21:03:00 Arthur ELECTROLYTES 2018-03-29 27 [facility] 21:03:00 Arthur ELECTROLYTES 2018-03-29 102 [facility] 21:03:00 [place] ELECTROLYTES 2018-03-29 0.90 [facility] 21:03:00 [place] ELECTROLYTES 2018-03-29 11 [facility] 21:03:00 Arthur ELECTROLYTES 2018-03-29 97 [facility] 21:03:00 [place] ELECTROLYTES 2018-03-29 79 [facility] 21:03:00 [place] HEMATOLOGY 2018-03-29 14.1 [facility] 21:03:00 [place] HEMATOLOGY 2018-03-29 89.6 [facility] 21:03:00 [place] HEMATOLOGY 2018-03-29 42.0 [facility] 21:03:00 [facility] HEMATOLOGY 2018-03-29 8.4 [facility] 21:03:00 [facility] HEMATOLOGY 2018-03-29 6.4 [facility] 21:03:00 [place] HEMATOLOGY 2018-03-29 4.68 [facility] 21:03:00 [facility] HEMATOLOGY 2018-03-29 12.9 [facility] 21:03:00 [place] HEMATOLOGY 2018-03-29 21:03:00 Test Item Value Reference Range Interpretation Comme nts MCH (test code = MCH) 30.1 pg 27.0-31.0 [facility] [id number] 21:03:0033.6[facility] HermannHEMATOLOGY 2018-03-29 21:03:61865Pwrhjosy HermannURINE AND [id number] 05:22:004.0 [facility] [id number] 05:22:00Negative (11/17/17 12:22 AM) [facility] [id number] 05:22:00Negative *NA*(11/17/17 12:22 AM)[facility] [id number] 05:22:00Yellow *NA*(11/17/17 12:22 AM)[facility] [id number] 05:22:00 Test Item Value Reference Range Interpretation Comments UA pH (test code = UA pH) 7.0 1 5.0-8.0 [facility] [id number] 05:22:00 Test Item Value Reference Range Interpretation Comments UA Spec Grav (test code = UA Spec 1.011 1 Grav) [facility] [id number] 05:22:00Slight *ABN*(11/17/17 12:22 AM) [facility] [id number] 05:22:00Negative (11/17/17 12:22 AM) [facility] [id number] 05:22:003[facility] [id number] 05:22:00Negative (11/17/17 12:22 AM)[facility] HermannCARDIAC [id number] 04:23:87712Nrhpwjja HermannCARDIAC [id number] 04:23:00 <0.02[facility] HermannCHEM [id number] 04:23:61206Rypvpwxs HermannCHEM [id number] 04:23:000.5[facility] HermannCHEM [id number] 04:23:008.9 [facility]annCHEM [id number] 04:23:0024[facility] HermannCHEM PANEL 2017-11-17 04:23:003.7[facility] HermannCHEM [id number] 04:23:0027[facility] HermannCHEM [id number] 04:23:0086[facility] HermannCHEM [id number] 04:23:72283Rleeemdi HermannCHEM [id number] 04:23:0026[facility] HermannCHEM [id number] 04:23:0010.8[facility] HermannCHEM [id number] 04:23:004.1 [facility]annCHEM [id number] 04:23:95732Shzsuxqo HermannCHEM PANEL 2017-11-17 04:23:54928Ljahhepk HermannCHEM [id number] 04:23:006[facility] HermannCHEM [id number] 04:23:000.80[facility] HermannCHEM [id number] 04:23:005.2[facility] HermannCHEM [id number] 04:23:0013.1[facility] HermannCHEM [id number] 04:23:00 Test Item Value Reference Range Interpretation Comments A/G Ratio (test code = A/G Ratio) 0.7 1 0.7-1.6 [facility]annCHEM [id number] 04:23:00 Test Item Value Reference Range Interpretation Comments B/C Ratio (test code = B/C Ratio) 8 1 6-25 [facility]annCHEM [id number] 04:23:001.9[facility] HermannCHEM PANEL 2017-11-17 04:23:002.2[facility] [id number] 04:23:00Negative *NA*(11/16/17 11:23 PM)[facility] AvgxjapMVKGETBSSA9757-83-26 04:23:0039.7[facility] WajehutICJWBAMPYP9997-36-36 04:23:0014.0[facility] BrqjhiwYFICTYSMIF6263-19-90 04:23:007.3[facility] GlyzcrnKJTPPAIZQJ2179-31-51 04:23:004.56[facility] [place] [id number] 04:23:0035.2[facility] IjtjhsxVNHQNFIVKD0228-98-90 04:23:00 87.1[facility] NnplyoyQENXIVRCZU8742-57-41 04:23:008.4[facility] HermannHEMATOLOGY 2017-11-17 04:23:0013.0[facility] RqlqmgpYJKKUOEKCJ3117-22-49 04:23:00 Test Item Value Reference Range Interpretation Comments MCH (test code = MCH) 30.7 pg 27.0-31.0 [facility] [id number] 04:23:29128Vnjsieti HermannHEMATOLOGY 2017-11-17 04:23:000.27[facility] YpiihvzVAETVMXJDH4601-97-49 04:23:002.3[facility] BuzlgzxPEQQGFVFGD8717-35-59 04:23:0058.7[facility] ZwohxbkUIDDXTHFFF0131-34-93 04:23:0031.5[facility] OpixlvyDIALIPLFGL7877-35-90 04:23:004.3[facility] WULIOHVYSR2638-26-00 04:23:000.6[facility] MimnjffBJLOGPULWL5969-89-83 04:23:006.7 [facility] KltpyakOLBLIMMVHX0255-68-07 04:23:002.5[facility] HermannHEMATOLOGY 2017-11-17 04:23:000.2[facility] LvdzoykCFNDIDGAOR7603-95-53 04:23:000.5[facility] HermannDRUG XZICSW0693-89-51 22:01:00See Note *NA*(10/31/17 5:01 PM)[facility]ann[facility] KGLQPW3372-38-64 22:01:00Negative *NA*(10/31/17 5:01 PM)[facility]ann[facility] QAIFRA0174-09-84 22:01:00Negative *NA*(10/31/17 5:01 PM)[facility]ann[facility] AHKLFF7600-43-06 22:01:00Negative *NA*(10/31/17 5:01 PM)[facility]ann[facility] FUEFTB1846-81-02 22:01:00Negative *NA*(10/31/17 5:01 PM)[facility]ann[facility] ETCNCR6304-54-22 22:01:00Negative *NA*(10/31/17 5:01 PM)[facility]ann[facility] CMRHXV8741-43-04 22:01:00Negative *NA*(10/31/17 5:01 PM)[facility]ann[facility] IBALXM6833-21-30 22:01:00Negative *NA*(10/31/17 5:01 PM)[facility] AND RWOJE1347-82-00 22:01:007[facility]ann[facility] AND STOOL 2017-10-31 22:01:003[facility] OFPYV0536-68-92 22:01:00Negative (10/31/17 5:01 PM)[facility] CBJMY5922-69-14 22:01:004.0[facility] AND HQCKU9577-84-50 22:01:00Negative (10/31/17 5:01 PM)[facility] KXTEX6532-65-35 22:01:00Slight *ABN*(10/31/17 5:01 PM)[facility] GDLRD6938-90-42 22:01:00Yellow *NA*(10/31/17 5:01 PM)[facility] AEKLV9753-25-32 22:01:00Negative (10/31/17 5:01 PM)[facility] QNEVT6551-52-68 22:01:00Negative *NA*(10/31/17 5:01 PM)[facility] DDDOX1370-98-52 22:01:00 Test Item Value Reference Range Interpretation Comments UA pH (test code = UA pH) 6.0 1 5.0-8.0 [facility] [id number] 22:01:00 Test Item Value Reference Range Interpretation Comments UA Spec Grav (test code = UA Spec 1.014 1 Grav) [facility]annCARDIAC IUTANLC6447-12-03 20:27:15050Ldrgviij HermannCARDIAC YRRODBF1625-78-71 20:27:00<0.02[facility] KhbqqubHBOEHGTFNMJX6044-86-07 20:27:0012.4[facility] KzvvdozQNTMEQEOAEID0478-49-32 20:27:0084[facility] FBBOQTYPHJOP3163-37-98 20:27:0010.3[facility] UfoptuzGAIEFNTIGTHP9887-43-55 20:27:000.96[facility] IhunldyNJDQWRRWSIAY0588-75-09 20:27:003.4[facility] UUEVUSNQGWRH3242-12-37 20:27:009[facility] YfezecbWIUUQCSJZQFG0583-02-43 20:27:00 96[facility] FijmhmcDLQPMYZRPUQM4686-14-88 20:27:10210Oibsruqa HermannELECTROLYTES 2017-10-31 20:27:54138Lrnqnixh LkzqafoMPQNFCEWXDPM2363-45-30 20:27:0028[facility] JtkvrgzBQGKEFEEVUEXL8564-98-56 20:27:00Negative *NA*(10/31/17 3:27 PM)[facility] WaxcorlYDCGYAAUYZ3888-04-21 20:27:0018.7[facility] AaapvppJFPXBBUYBU3120-52-91 20:27:009.1[facility] HkldlzbOTVKHFEDZC0226-15-64 20:27:006.6[facility] HCJFQFPERI2984-71-61 20:27:001.8[facility] UpdzudsLGUNTZPGRA1137-74-75 20:27:00 70.6[facility] WzltgbnXPEVNJGZXH0518-93-14 20:27:001.3[facility] HermannHEMATOLOGY 2017-10-31 20:27:000.3[facility] KaoarulIRUBYJHIEF5146-87-27 20:27:000.9[facility] DlhzakdCZOFYNNTID7723-43-22 20:27:000.1[facility] RbbcchtIICBRGKHLG4282-41-88 20:27:00 Test Item Value Reference Range Interpretation Comments PT (test code = PT) 15.7 s 12.0-14.7 [facility] GwirpjoPXVIMHHFES3289-91-54 20:27:00 Test Item Value Reference Range Interpretation Comments INR (test code = INR) 1.24 1 0.85-1.17 [facility] QdvmxvzNOLFPFUXQF2008-41-86 20:27:00 Test Item Value Reference Range Interpretation Comments PTT (test code = PTT) 31.0 s 22.9-35.8 [facility] LuajeohPSVJDTTTOH4437-41-09 20:27:0013.5[facility]annHEMATOLOGY 2017-10-31 20:27:004.35[facility] UxywxepLKCZCBYSMK8859-31-47 20:27:0013.4[facility] YfbnsqkOOJBGMLMXO7834-25-69 20:27:009.4[facility] RbhrxyiGTUILNLUMG3796-39-47 20:27:0034.7[facility] DknnebeTWFLMGBIVM8899-31-71 20:27:00 Test Item Value Reference Range Interpretation Comments MCH (test code = MCH) 31.0 pg 27.0-31.0 [facility] VlfzfvuKDCCWSUZFQ3194-65-07 20:27:0038.8[facility] HermannHEMATOLOGY 2017-10-31 20:27:0089.4[facility] RqyrdxrFLXVACNTRL3739-70-52 20:27:008.2[facility] AyagrgvBKRAMCSTFG9081-60-13 20:27:65262Ncrprjml WkowgueRGOWMYAVLW3952-33-83 20:27:00<3[facility] BtksqziDIAAMVCLRS3309-55-13 20:27:00<0.003[facility] HermannCARDIAC UXFBAOQ1534-40-88 05:19:00<0.02[facility] HermannCARDIAC ENZYMES 2017-10-26 01:51:55256Tcxiyvtb HermannCARDIAC YBKKQBL9750-82-22 01:51:00<0.02 [facility]annCARDIAC DYIVQZS9250-35-57 01:51:00<1.0[facility] HermannCARDIAC OAEFZPY5388-75-12 01:51:00<0.8[facility] HermannCHEM EJOPM7392-64-43 01:51:00 217[facility] HermannCHEM SBTCO9771-32-91 01:51:008.4[facility] HermannCHEM PANEL 2017-10-26 01:51:003.7[facility] HermannCHEM YJZQN2568-29-98 01:51:0024[facility] HermannCHEM FVIXR7340-16-85 01:51:0018[facility]annCHEM YNBCG3286-95-20 01:51:000.1[facility] HermannCHEM YUJDF9152-41-88 01:51:0086[facility]annCHEM MMBRQ6052-45-96 01:51:000.6[facility] HermannCHEM MJYBT4282-90-32 01:51:000.5 [facility]annCHEM TCPUQ5674-31-46 01:51:004.7[facility] HermannCHEM PANEL 2017-10-26 01:51:00 Test Item Value Reference Range Interpretation Comments A/G Ratio (test code = A/G Ratio) 0.8 1 0.7-1.6 [facility]annCHEM AGZSO4355-85-19 01:51:71956Bddexvme HermannCHEM PANEL 2017-10-26 01:51:000.70[facility] HermannCHEM CFEEQ2939-67-04 01:51:94025Qwbokngt HermannCHEM MFHGO4375-12-65 01:51:003.6[facility] HermannCHEM EVGJS2194-40-10 01:51:0025[facility] HermannCHEM LKFTN3730-33-97 01:51:01029Wjofqgif HermannCHEM HDFLG8298-42-29 01:51:0010.3[facility] HermannCHEM QULLD4324-88-13 01:51:0093 [facility]annCHEM EICZL5843-86-03 01:51:008[facility] HermannCHEM PANEL 2017-10-26 01:51:009.6[facility] ZdddcvnEREHKQAKRM6500-90-80 01:51:000.0[facility] XdrfpuxFIEQNYBBXR3310-11-84 01:51:002.4[facility] IhgvniaUARRBKSWCX4679-36-55 01:51:000.6[facility] WqkwnvsIUNOSCPNIK0230-02-64 01:51:000.1[facility] GDSLFCRDKR4500-65-63 01:51:002.1[facility] NgrstxcKIBWRJZBVW8442-66-21 01:51:000.4 [facility] HmuftdrHFJKSOKLZG2564-35-48 01:51:003.7[facility] HermannHEMATOLOGY 2017-10-26 01:51:0035.4[facility] RzcpaxkULTNQHYGQY8747-58-23 01:51:008.2[facility] IvyswtdOEUCZSCUYD5045-29-85 01:51:0053.9[facility] EcjsuagOEKYJHRMZE2768-46-41 01:51:007.8[facility] SwwjehmPLLKJMOGYB2137-84-71 01:51:87966Ylrvxpqy [facility] FLTGHTHAOO3192-72-38 01:51:0013.4[facility] GoystbaNJOFAZXBVB7750-62-31 01:51:00 34.1[facility] QpkesgdNMBAKAANYX0159-82-09 01:51:00 Test Item Value Reference Range Interpretation Comments MCH (test code = MCH) 30.7 pg 27.0-31.0 [facility] NcernikMUWYCSVXJD8125-04-54 01:51:0090.0[facility] HermannHEMATOLOGY 2017-10-26 01:51:0040.4[facility] KwygiceMXBGRHZHFF8574-57-17 01:51:0013.8[facility] BnrwdgyGPTYWHJVTR2887-57-64 01:51:004.49[facility] GjmvmzeESPCAUPNNG6482-96-40 01:51:006.9[facility] HermannCHEM UDCNS6566-15-03 15:16:90252Gtpucpdb HermannCHEM BXZRC6014-46-52 15:16:000.4[facility] HermannCHEM TNOGH9524-16-72 15:16:0083 [facility]annCHEM WQXDD9956-54-95 15:16:0014[facility] HermannCHEM PANEL 2017-10-13 15:16:0022[facility] HermannCHEM HIBBD9371-26-84 15:16:09655Exbwjtpj HermannCHEM STWHN3818-56-44 15:16:00 Test Item Value Reference Range Interpretation Comments A/G Ratio (test code = A/G Ratio) 0.8 1 0.7-1.6 [facility]annCHEM LMFLK7184-90-12 15:16:004.5[facility] HermannCHEM PANEL 2017-10-13 15:16:00 Test Item Value Reference Range Interpretation Comments B/C Ratio (test code = B/C Ratio) 8 1 6-25 [facility]annCHEM NUTQR5679-54-06 15:16:0010.2[facility] HermannCHEM PANEL 2017-10-13 15:16:007.9[facility] HermannCHEM TIXFY3286-77-60 15:16:003.4[facility] HermannCHEM SDWGZ3684-81-21 15:16:31601Nfbnupmv HermannCHEM FSALH5287-33-55 15:16:0030[facility]annCHEM CUNXX9272-47-36 15:16:0010.8[facility] HermannCHEM LNYCL4629-22-18 15:16:007[facility]annCHEM EFUOZ7709-68-59 15:16:33046 [facility]annCHEM QJUOV1380-90-85 15:16:003.8[facility] HermannCHEM PANEL 2017-10-13 15:16:000.83[facility] HermannCHEM IYYWB7740-88-06 15:16:74977Kzagtthj ZmvnxxeTNRFPBLFZOIIY3533-09-24 15:16:00Negative *NA*(10/13/17 10:16 AM)[facility] KwdyphmJADKGYQDAM3711-40-76 15:16:007.5[facility] QqfdvetSEOKDTHHRA9538-56-32 15:16:0064.6[facility] PkhabnsHYUGEVMLSR3902-87-98 15:16:0026.4[facility] CJPXNLICNW1290-48-53 15:16:004.8[facility] CtqmjsaWRFPMBJYUD7972-04-23 15:16:000.4 [facility] DgrbcdpTXECBKSKDB9994-54-88 15:16:001.1[facility] HermannHEMATOLOGY 2017-10-13 15:16:000.6[facility] OpmatmgHVZNXCAMTV4733-78-81 15:16:002.0[facility] SvmarqhMDCIMVBOGZ4748-17-81 15:16:000.1[facility] GonbcnrJOOKSESUHJ0894-08-85 15:16:0013.4[facility] BfpgateTLJCYSPQQV1754-62-64 15:16:00 Test Item Value Reference Range Interpretation Comments MCH (test code = MCH) 30.7 pg 27.0-31.0 [facility] LtujhqtLSNAEFCJIT7485-23-52 15:16:40517Kzzqqzzu HermannHEMATOLOGY 2017-10-13 15:16:0034.7[facility] LgvatqsIAUFXKOXFW3323-76-70 15:16:0088.5[facility] AlxbamrIQYPMWAFON0221-76-01 15:16:008.2[facility] UywpnzzFFXAEIWMSG7830-05-66 15:16:0038.7[facility] NvvyhcmJWMPVGMRPD4492-89-90 15:16:0013.4[facility] IQRQCWKGNX4382-63-72 15:16:004.37[facility] QpladojPRJYEXNMNQ2767-55-31 15:16:00 7.4[facility]annURINE AND WUGNM3348-88-19 15:16:003[facility]annUR[facility] AND GQYAI3746-42-37 15:16:002[facility]UR[facility] AND KSPXN9438-22-84 15:16:00 Negative (10/13/17 10:16 AM)[facility] IODUQ2051-27-75 15:16:00 Negative (10/13/17 10:16 AM)[facility] TISGA9534-51-24 15:16:00 Negative (10/13/17 10:16 AM)[facility] LMGCC6520-76-39 15:16:00 Test Item Value Reference Range Interpretation Comments UA pH (test code = UA pH) 6.0 1 5.0-8.0 [facility] FZZQZ4461-07-39 15:16:00 Test Item Value Reference Range Interpretation Comments UA Spec Grav (test code = UA Spec 1.008 1 Grav) [facility] IQYUR6847-26-61 15:16:00Negative *NA*(10/13/17 10:16 AM)[facility] CFAOC0808-61-60 15:16:00Yellow *NA*(10/13/17 10:16 AM)[facility] MZBLY9251-39-53 15:16:00Slight *ABN*(10/13/17 10:16 AM)[facility] SusdnszZPSBOAUQQBQED5387-37-43 13:00:00Negative *NA*(05/01/16 7:00 AM) [facility] RZBPSPL0381-66-77 16:31:00Negative (04/24/16 10:31 AM) [facility] UtbswyiJPNVEEPCOM1144-72-75 16:30:000.0[facility] HermannHEMATOLOGY 2016-04-24 16:30:000.4[facility] DzgszvqCDRUAYDBJY4132-80-23 16:30:000.1[facility] CzttkndCIXHONMDGA9617-52-16 16:30:003.3[facility] CpvyafoEFAQRTOKET5052-83-57 16:30:001.6[facility] AfdbmpzPSATZWINEL7405-67-73 16:30:0060.9[facility] RVRGCFWCPL9986-83-02 16:30:000.5[facility] XmwetubOVRZECUUBV4603-68-43 16:30:001.8 [facility] PtstteuSUYSPBQVPM4292-68-32 16:30:0029.1[facility] HermannHEMATOLOGY 2016-04-24 16:30:007.7[facility] OjnwdopUGIYBSUZLY1478-71-94 16:30:00 Test Item Value Reference Range Interpretation Comments MCH (test code = MCH) 28.5 pg 27.0-31.0 [facility] EohmsrpPMEUYLHPKL2407-53-52 16:30:0087.6[facility] HermannHEMATOLOGY 2016-04-24 16:30:0037.5[facility] MfleczmYYVDEVZZAO3831-53-89 16:30:0032.6[facility] OakuftmKGFDGYJVMW8048-51-14 16:30:99315Uzjmlwqb IjectwcLSGQTKLBWB7880-26-01 16:30:0015.8[facility] BmkjrarOPTSZDOAJM0442-23-01 16:30:008.6[facility] MGQJPJADTE6575-27-09 16:30:005.4[facility] PztodszYHHYNVMOER4977-47-49 16:30:00 12.2[facility] LxhimsyXEQLMHEPAD7904-09-09 16:30:004.29[facility]annUR[facility] BCNTU5606-81-99 23:03:00Yellow *NA*(03/17/16 5:03 PM)[facility] QXAXL1582-66-99 23:03:00Cloudy *ABN*(03/17/16 5:03 PM)[facility] HJKUC0875-26-01 23:03:00Negative *NA*(03/17/16 5:03 PM)[facility] EOCJS9007-81-29 23:03:00Negative (03/17/16 5:03 PM)[facility] IIYKB1844-94-17 23:03:00 Test Item Value Reference Range Interpretation Comments UA Spec Grav (test code = UA Spec 1.025 1 Grav) [facility] HEUIS4592-30-62 23:03:00 Test Item Value Reference Range Interpretation Comments UA pH (test code = UA pH) 6.0 1 5.0-8.0 [facility] BKWAH4718-08-83 23:03:00Negative (03/17/16 5:03 PM) [facility] CHLCV4944-35-79 23:03:00Negative *NA*(03/17/16 5:03 PM)[facility] JQRRQ1825-47-76 23:03:00Moderate *ABN*(03/17/16 5:03 PM)[facility] ZGPWT5778-36-62 23:03:004.0[facility] URINE AND HVIZL5528-72-52 23:03:00Moderate *ABN*(03/17/16 5:03 PM)[facility] HermannCHEM CEZWC4993-82-40 22:42:27305Dtteyney HermannCHEM PCHTN4519-34-84 22:42:000.5[facility] HermannCHEM IEFNO9992-14-34 22:42:0011.4[facility] HermannCHEM RXDWD7490-35-67 22:42:005.5[facility] HermannCHEM BNHDQ9793-96-73 22:42:007 [facility]annCHEM UKXYV0514-10-17 22:42:73653Mbwzzphl HermannCHEM PANEL 2016-03-17 22:42:0065[facility] HermannCHEM YZMZM3460-05-35 22:42:003.4[facility] HermannCHEM DPYEC2338-11-66 22:42:006[facility] HermannCHEM AIPQZ0380-02-18 22:42:29869Lpclguzw HermannCHEM PGBPA7720-47-27 22:42:000.85[facility] HermannCHEM PIDCM2735-12-40 22:42:000.5[facility] HermannCHEM CYVWQ1151-13-92 22:42:87739 [facility]annCHEM RVQEQ1109-66-82 22:42:009.6[facility] HermannCHEM PANEL 2016-03-17 22:42:0029[facility] HermannCHEM DJDED0869-78-88 22:42:0059[facility] HermannCHEM KKJZB2078-79-50 22:42:008.5[facility] HermannCHEM KDWWN3658-79-59 22:42:18311Qrfsbwah HermannCHEM TAHTP1230-82-98 22:42:003.0[facility] HermannCHEM NPEZS8822-67-55 22:42:0083[facility] XbmhqesZNXZQWTWTMYXE6338-04-92 22:42:00 Negative *NA*(03/17/16 4:42 PM)[facility] JkyvslmXTKXQXZINF4311-09-26 22:42:008.6 [facility] ZcgbkjaPBHLQBWAIB8850-03-51 22:42:0034.3[facility] HermannHEMATOLOGY 2016-03-17 22:42:25331Hdxvnlhm YqhisetYXCYFKHXWF7126-93-20 22:42:0016.8[facility] YhbgsysGHAHQYUEUG8250-15-30 22:42:00 Test Item Value Reference Range Interpretation Comments MCH (test code = MCH) 28.7 pg 27.0-31.0 [facility] BwqknuzBBJYIOJJMC5167-35-45 22:42:0011.7[facility] HermannHEMATOLOGY 2016-03-17 22:42:0034.1[facility] TpsfcspTJBRLYFFGS1930-41-94 22:42:007.6[facility] AyyzqufFICVVNZMXP9713-72-97 22:42:0083.6[facility] AtgkdujYWQKYBDDAR7093-33-71 22:42:004.08[facility] YjhjqkqKOCSUFFLAL6290-09-33 22:42:000.6[facility] FJXRTNMJSP5138-25-34 22:42:0016.1[facility] ZvrxidrNCVZUCLRZE3528-57-51 22:42:00 12.9[facility] EjpxswpGDXZIWZUYG9061-81-92 22:42:005.3[facility] HermannHEMATOLOGY 2016-03-17 22:42:001.0[facility] KmpukvvHCLCOVRFBK7363-84-70 22:42:001.2[facility] QtvnlbrGBHDUIZKXA5046-84-30 22:42:000.2[facility] QowukslXSDMIABSJT2935-80-20 22:42:0070.2[facility] HermannVIRAL - IEJLNAOZ1234-17-26 22:42:00Negative (03/17/16 4:42 PM)[facility] HermannVIRAL - TFLCZJHP9254-48-73 22:42:00Negative (03/17/16 4:42 PM)[facility] HermannANEMIA PUQUC3938-71-63 11:10:006[facility] HermannANEMIA ZWDJK9536-24-73 11:10:25723Alsztggp HermannANEMIA IMRSJ1567-47-57 11:10:68074Sovuxodu HermannANEMIA GACFZ0780-90-35 11:10:0030[facility] ANEMIA XCJQC4925-02-98 11:10:005[facility] HermannCARDIAC RARIOAT0756-48-75 11:10:000.7[facility] HermannCARDIAC HBYKTCN8444-29-18 11:10:34687Itddlcmm Arthur CARDIAC MEXOWLH6898-94-92 11:10:000.3[facility] HermannCHEM KOUPM2093-44-01 11:10:63518Yxcinbsk HermannCHEM NEMLX5084-16-73 11:10:0039[facility] HermannCHEM YAGAM7297-23-69 11:10:0091[facility] HermannCHEM KWKNJ2809-40-99 11:10:0025 [facility]annCHEM TJFDD2250-13-41 11:10:000.4[facility] HermannCHEM PANEL 2015-04-08 11:10:009.4[facility] HermannCHEM JINAW1926-37-29 11:10:0013[facility] HermannCHEM OHDQC9018-11-42 11:10:0015.2[facility] HermannCHEM HHTIL2583-06-75 11:10:0021[facility] HermannCHEM RPBMP8426-53-78 11:10:000.5[facility] HermannCHEM RQEAC4321-77-79 11:10:005.0[facility]annCHEM RBVQB2434-97-10 11:10:007.7 [facility]annCHEM BTMNQ2962-34-70 11:10:002.7[facility] HermannCHEM PANEL 2015-04-08 11:10:008[facility] HermannCHEM IBMRX0998-57-97 11:10:0086[facility] HermannCHEM GGDYE2433-31-21 11:10:000.60[facility] HermannCHEM QPSGV3989-97-51 11:10:50795Sewqmcca HermannCHEM LCAYE0544-33-87 11:10:46688Aiwyzmds HermannCHEM GMEYO3982-80-21 11:10:004.2[facility] LvkzjqgLIBLAHKKRK4667-14-13 11:10:00Moderate *ABN*(04/08/15 5:10 AM)[facility] MrrwznfGGAFENKAMD7362-29-29 11:10:002+ *ABN*(04/08/15 5:10 AM)[facility] KikulbaZCKYTSCLJG0906-49-08 11:10:000.0[facility] FwnygaxXTQMIIILBS6411-26-21 11:10:00Normal (04/08/15 5:10 AM)[facility] MRIGTLSPTI7010-90-30 11:10:001.8[facility] GcofoepGJPUOYOEYW6188-30-01 11:10:003.0 [facility] FwwlmpnQICBZZCMFK1268-27-64 11:10:000.4[facility] HermannHEMATOLOGY 2015-04-08 11:10:000.1[facility] MofevnuVLSUBKTFWA0545-23-31 11:10:007.0[facility] QdabuzaLSESSJQEMQ8133-56-08 11:10:0056.2[facility] UlfmcvaKOVZCQNLZE8493-27-37 11:10:002.0[facility] HbpluvwRCDWTEZJUY4757-73-29 11:10:0034.2[facility] RYLPKKUPRF0655-57-12 11:10:000.6[facility] YypfedvAPVNVHFIUU7851-94-75 11:10:008.3 [facility] RdycaslSRMMJQSOTB4662-12-43 11:10:46329Vejcyddz HermannHEMATOLOGY 2015-04-08 11:10:0017.7[facility] IvzogcjOUOEVQDFCY5786-48-55 11:10:0030.4[facility] RgpswulNGLCPULJBG2571-26-88 11:10:00 Test Item Value Reference Range Interpretation Comments MCH (test code = MCH) 21.9 pg 27.0-31.0 [facility] NoznsxkTSLMAJQVKH3465-84-84 11:10:003.99[facility] HermannHEMATOLOGY 2015-04-08 11:10:005.4[facility] ZvfpkwkVTTPJBXXFJ8646-19-11 11:10:0072.1[facility] FsgcwwjAXXSVSUMXA3521-91-28 11:10:008.8[facility] DfdreenPEPBMGIBXK0751-63-69 11:10:0028.8[facility] KxqfetiAKGUGH6815-65-34 11:10:003.45[facility] HermannLIPIDS 2015-04-08 11:10:0053[facility] ZglqwteAYQQBN9154-14-36 11:10:78505Iejuxriq PzfjtxfWUFDXI7876-18-57 11:10:64969Grpsnnby ZtsvadjOWTCMS4443-79-33 11:10:69823 [facility] YujtujbZSRZWO2665-16-00 11:10:0024[facility] HermannANEMIA STUDY 2015-04-08 02:16:0017.7[facility] HermannANEMIA PVNGR6512-49-08 02:16:11025 [facility]annANEMIA DZDYK2725-03-73 02:16:002[facility]annHEMATOLOGY 2015-04-08 02:16:001.4[facility] HermannCARDIAC BKYRFHI4388-02-02 23:25:00<0.02 [facility]annCARDIAC TSOAJDS5080-20-04 23:25:12915Wrotcpjv HermannCARDIAC UFNYVCW2516-31-82 23:25:000.4[facility] HermannCARDIAC CAARBWP0849-97-29 23:25:00 1.1[facility] HermannCARDIAC NCEDFPQ2940-53-20 15:59:00<0.02[facility] URINE AND QCMKA1944-05-81 14:33:00 Test Item Value Reference Range Interpretation Comments UA Spec Grav (test code = UA Spec 1.020 1 Grav) [facility] YMKIF8535-48-96 14:33:00Trace *ABN*(04/07/15 8:33 AM) [facility] OCIHH0037-82-51 14:33:00 Test Item Value Reference Range Interpretation Comments UA pH (test code = UA pH) 6.5 1 5.0-8.0 [facility] DHGEO0359-53-93 14:33:00Negative *NA*(04/07/15 8:33 AM) [facility] ZOARC9534-65-65 14:33:00Negative (04/07/15 8:33 AM) [facility] KVMBE6572-13-24 14:33:00Negative *NA*(04/07/15 8:33 AM) [facility] YZJSV2593-35-84 14:33:000.2[facility]UR[facility] AND XEHLJ7140-84-39 14:33:00Large *ABN*(04/07/15 8:33 AM)[facility] CTFPI8607-65-92 14:33:00Negative (04/07/15 8:33 AM)[facility] NAASS2921-83-37 14:33:00Negative (04/07/15 8:33 AM)[facility] YAHQA9288-33-93 14:33:00Clear (04/07/15 8:33 AM)[facility] STOOL 2015-04-07 14:33:00Yellow *NA*(04/07/15 8:33 AM)[facility] STOOL 2015-04-07 14:33:00Performed (04/07/15 8:33 AM)[facility] HermannCARDIAC ENZYMES 2015-04-07 13:28:00<0.02[facility] HermannCARDIAC BCILCIE6597-00-68 13:28:0045 [facility]annCARDIAC NOCERZG1716-64-34 13:28:001.2[facility] HermannCARDIAC GOZZJQE8425-94-39 13:28:15844Akmhixsh HermannCARDIAC UYKYAMB7644-21-06 13:28:00 0.5[facility] HermannCHEM QVUAW3688-78-10 13:28:55281Tihqzgqi HermannCHEM PANEL 2015-04-07 13:28:0015.0[facility] HermannCHEM HVJSZ5082-26-45 13:28:000.2[facility] HermannCHEM QGVLG9097-16-73 13:28:000.6[facility] HermannCHEM RXLSF3076-79-52 13:28:005.4[facility] HermannCHEM RSJCV9345-38-47 13:28:0012[facility] HermannCHEM SSZZA8527-70-55 13:28:96018Sbcskjdc HermannCHEM IVRRH5703-73-81 13:28:0024 [facility]annCHEM SSBGG6401-79-93 13:28:0019[facility] HermannCHEM PANEL 2015-04-07 13:28:0024[facility] HermannCHEM HFZSA9819-26-70 13:28:009.5[facility] HermannCHEM UIRLN3215-92-70 13:28:008.4[facility] HermannCHEM SADJG8168-95-21 13:28:009[facility] HermannCHEM TABYR9772-41-66 13:28:003.0[facility] HermannCHEM ESIFP3143-72-37 13:28:000.75[facility] HermannCHEM OYPHS6190-27-83 13:28:45376 [facility]annCHEM LYEBJ7841-37-35 13:28:004.0[facility] HermannCHEM PANEL 2015-04-07 13:28:57913Isehfkpq HermannCHEM VHZKM3305-78-05 13:28:54214Drppfoqh BkmglkmZQQQBQRVWB4405-67-34 13:28:009.2[facility] KqndmnoGPWHHAMDQF8040-63-51 13:28:0071.0[facility] WnryzapTPGPHPKNFJ4599-02-95 13:28:00 Test Item Value Reference Range Interpretation Comments MCH (test code = MCH) 21.4 pg 27.0-31.0 [facility] QbyyfmwQGXLWQFQNR6802-85-12 13:28:85531Tzgteixo HermannHEMATOLOGY 2015-04-07 13:28:008.0[facility] OhdqhbxRPPCBRYAVK4515-00-99 13:28:0018.0[facility] TopgavjOLHXBKEPLJ5897-24-74 13:28:0030.1[facility] GjacubrJSMRMJLXSH7786-21-11 13:28:009.0[facility] UutqxqnIJSRACDBLI6134-89-37 13:28:004.30[facility] CPZGHVJXXS3661-19-86 13:28:0030.5[facility] OudngycPKMUCZWIWB0429-07-89 13:28:00 84.7[facility] XrblbtqKGJXUOUXJW7478-43-95 13:28:009.4[facility] HermannHEMATOLOGY 2015-04-07 13:28:000.0[facility] BewqrtuUPOHNCAZBW2144-25-73 13:28:000.8[facility] QrdgntdWZMXIXZMLC3057-41-32 13:28:000.5[facility] WsyjobgURWBWDFPDI6367-67-91 13:28:007.6[facility] NkqyectOQXPSVNDUV6377-73-76 13:28:005.4[facility] GREYUZKSTY2078-87-21 13:28:000.3[facility] WtdehhhUZAKOERZCU8570-97-78 13:28:000.2 [facility] OrdxcrkUDYWHEUNQZ7661-68-21 13:28:000.0[facility] HermannCARDIAC ENZYMES 2014-11-06 20:27:000.4[facility]annCARDIAC FEDQGVK7519-75-50 20:27:000.6 [facility]annCARDIAC KHGRQPT6670-34-17 20:27:00<0.02[facility] CARDIAC WVYUFWD0702-24-08 20:27:57696Kjwazljf JwknrvgZVAWAVHFREQG2436-85-66 09:19:004.4[facility] SzbwcwtQAQNKWAHQIPA1373-33-53 09:19:57109Hatlpktv [facility] SINRLRGZOXCZ4315-74-91 09:19:18914Ilvygiqe TznxiihVXSNKGORGSEY6137-04-85 09:19:83236Troqlhlk MpzopgaMARLQCGGMJLK7066-15-16 09:19:0020[facility] PRZQQKCDIQIG7830-50-88 09:19:009.5[facility] FqmbmsmYMILUWBJWCKT7781-87-33 09:19:007.7[facility] RcmmwywOOEGLEBSBGLR1584-46-68 09:19:002.9[facility] LGXEZYNLMMDM1777-99-62 09:19:0021[facility] CdvsojoMUZIJYSALCOA7488-73-66 09:19:00 27[facility] YcqjreuJMSEKLMYYPPN4588-46-19 09:19:0081[facility] HermannELECTROLYTES 2014-11-06 09:19:000.4[facility] VioemtpILOYUZGEPOCM3765-49-17 09:19:000.8[facility] SlqnbiqFHZYCPEBUWLN0958-13-18 09:19:0088[facility] FeekljrQUWWXUAYYVUY3053-26-84 09:19:007[facility] YghpyziYRJOYXOWDJRK7583-07-63 09:19:0016.4[facility] AWQJXBYSGHZB6843-77-28 09:19:009[facility] VnddjamKXOJOGSVMSWG4946-35-74 09:19:00 4.8[facility] XwxpuefKJWVGSDPUAOT0342-60-19 09:19:000.6[facility] HermannHEMATOLOGY 2014-11-06 09:19:0054.4[facility] OnehyujCMFCELQCDE9886-07-74 09:19:0031.6[facility] UvdskznCHSAYSVHKP9552-40-60 09:19:000.9[facility] IyxuykfMYYQKLQMMX6173-23-56 09:19:002.8[facility] WfbuingETVHKMZPOC7899-24-20 09:19:0010.8[facility] KWPNERHEXQ2045-31-13 09:19:000.1[facility] LtkoohsYUPERFZTCO8583-30-67 09:19:002.3 [facility] ZnxcaemALBJWFJKWY5560-24-47 09:19:003+ *NA*(11/06/14 4:19 AM)[facility] QpqjzgbYFEIYACCPC8463-38-47 09:19:001.6[facility] XkpvcnqLSQGAVTQEF7650-23-14 09:19:000.6[facility] UgruaqxDXRQEPTXSF2874-20-66 09:19:0030.6[facility] SKBDQHAQLT3507-28-51 09:19:008.2[facility] AalxpfmKXCXTMNPIB2418-58-84 09:19:00 17.5[facility] NratucbPHFKUDVXOB8575-24-14 09:19:62127Ugipftjj HermannHEMATOLOGY 2014-11-06 09:19:004.00[facility] FpnwukjKOMYUEPSGY9699-97-03 09:19:008.4[facility] ObcffycQREFWQAQJY3724-06-65 09:19:00 Test Item Value Reference Range Interpretation Comments MCH (test code = MCH) 21.1 pg 27.0-31.0 [facility] TcqrcxsCRGHQNDXWV4299-77-61 09:19:0027.6[facility] HermannHEMATOLOGY 2014-11-06 09:19:0068.8[facility] TwxexmgTCFUUGMROO7244-44-39 09:19:005.1[facility] HermannANEMIA DZMIA1152-58-13 04:28:569960Iqcdpttp HermannANEMIA QXJSU9868-86-71 04:28:0010.4[facility] HermannANEMIA TFTPF6903-71-08 04:28:38871Nqranqoz [facility] ANEMIA XKUFD8138-57-05 04:28:22482Srnmdpyt HermannANEMIA YNFET7308-71-70 04:28:0015[facility] HermannANEMIA SNGWR0560-76-84 04:28:003[facility] HermannANEMIA LXEVD9262-59-41 04:28:05323Tbzjrzjq HermannANEMIA LAWVJ8007-21-89 04:28:002 [facility]annCHEM HOUDQ5022-56-11 04:28:84866Wvfbfgku HermannHEMATOLOGY 2014-11-06 04:28:001.7[facility] DtpesqqHAPAUACKBV5070-09-55 04:28:0012.8[facility] HermannURINE AND HFGZJ3239-64-06 22:15:00Negative (11/05/14 5:15 PM)[facility] HermannBLOOD BANK HMNWKRB5477-13-33 21:23:00Negative (11/05/14 4:23 PM)[facility] HermannCARDIAC SFXMHHX8785-48-69 20:02:00<0.5[facility] HermannCARDIAC ENZYMES 2014-11-05 20:02:00<0.02[facility] HermannCARDIAC WURRSJJ8750-50-14 20:02:04331 [facility]annCARDIAC BXVXGDZ6668-40-00 20:02:00<0.3[facility] HermannCHEM BHEYV1211-41-75 20:02:58855Wacuozfn HermannCHEM AQOXP6024-46-52 20:02:0027 [facility]annCHEM GPWJZ0880-16-11 20:02:009.8[facility] HermannCHEM PANEL 2014-11-05 20:02:000.3[facility] HermannCHEM XEOLJ5196-26-96 20:02:007[facility]annCHEM YWZJX8651-56-12 20:02:0087[facility]annCHEM PCOVQ4521-43-60 20:02:20715Ncfpifom HermannCHEM QIKIX9582-93-83 20:02:48302Vwapfovd HermannCHEM AJUWF9122-72-03 20:02:003.5[facility]annCHEM BRLZM7019-28-78 20:02:000.8 [facility]annCHEM NTZZX8979-26-26 20:02:008.2[facility] HermannCHEM PANEL 2014-11-05 20:02:0017[facility] HermannCHEM AITFX3472-27-43 20:02:005.0[facility]annCHEM XLTUB1637-55-67 20:02:000.6[facility] HermannCHEM ZTQSM6454-72-14 20:02:009[facility]annCHEM QAVPF4026-25-64 20:02:0010.5[facility] HermannCHEM NVKKS0988-41-13 20:02:0083[facility] HermannCHEM UNMYI0038-66-00 20:02:003.2 [facility]annCHEM UHKVI1451-10-99 20:02:0018[facility] HermannHEMATOLOGY 2014-11-05 20:02:00 Test Item Value Reference Range Interpretation Comments PTT (test code = PTT) 29.7 s 22.9-35.8 [facility] DqswecoAZNWMXVBTL3105-53-38 20:02:00 Test Item Value Reference Range Interpretation Comments PT (test code = PT) 15.1 s 12.0-14.7 [facility] LwphtmjLYFQAJVBBL3375-28-23 20:02:001.18[facility] HermannHEMATOLOGY 2014-11-05 20:02:005.0[facility] GobsuzfMDLIKPJAWU3512-69-49 20:02:004.01[facility] KmftshvCGASLBAOHV1159-42-48 20:02:008.2[facility] YexinwlECXKIOPGJZ4725-07-91 20:02:007.6[facility] AuabrhjCYXJTKLEES7278-90-35 20:02:0017.2[facility] VBDYYSVDZO9595-90-50 20:02:88987Wqawwlwi HvmmnyrMYJJLGVERJ6332-91-56 20:02:00 Test Item Value Reference Range Interpretation Comments MCH (test code = MCH) 20.4 pg 27.0-31.0 [facility] VchuatuXTCXXAGADV3547-58-03 20:02:0029.8[facility] HermannHEMATOLOGY 2014-11-05 20:02:0068.4[facility] TqbwglaOETPWRUSTN0901-23-46 20:02:0027.4[facility] LnclpdkGXTNANPPYX0196-12-69 20:02:0063.4[facility] SewcqusGWTWKEQCSG0063-32-61 20:02:001+ (11/05/14 3:02 PM)[facility] WvlnaftMVYOYFILTI9758-24-11 20:02:0010.2 [facility] EpappojXLFYNKJSJS9208-30-88 20:02:001.5[facility]annHEMATOLOGY 2014-11-05 20:02:000.3[facility] JkdfagwFSBVNOELHJ8083-28-74 20:02:0024.6[facility] XolofuaTVDYMXSHTP7332-97-92 20:02:00Normal (11/05/14 3:02 PM)[facility] RSSCHDVLNP8859-80-31 20:02:00See Note (11/05/14 3:02 PM)[facility] TEIPACMCPJ8769-99-52 20:02:001.2[facility] PjgjyjoSXSTASTTIK0326-20-80 20:02:000.5 [facility] NsulqyaWNDHJPUWCE8601-61-35 20:02:003.2[facility]annHEMATOLOGY 2014-11-05 20:02:003+ *NA*(11/05/14 3:02 PM)[facility] KwzacacAOEQQYSKNF3158-15-65 20:02:000.1[facility] AND KEVAF2315-31-55 18:07:00Small *ABN*(11/03/14 1:07 PM)[facility] RWSXQ1684-35-36 18:07:00Negative *NA*(11/03/14 1:07 PM)[facility] NTUUS7104-15-80 18:07:00Cloudy *ABN*(11/03/14 1:07 PM)[facility] TKTLL7905-04-19 18:07:00 Test Item Value Reference Range Interpretation Comments UA Spec Grav (test code = UA Spec 1.010 1 Grav) [facility] SXKFG4895-33-18 18:07:00Trace *ABN*(11/03/14 1:07 PM) [facility] GRQUA5569-60-26 18:07:00 Test Item Value Reference Range Interpretation Comments UA pH (test code = UA pH) 7.5 1 5.0-8.0 [facility] LPGCE1450-81-62 18:07:00Yellow *NA*(11/03/14 1:07 PM) [facility] XGXYV5850-78-35 18:07:00Negative (11/03/14 1:07 PM) [facility] GQSHL4410-65-30 18:07:00Negative (11/03/14 1:07 PM) [facility] JLPUO8126-44-29 18:07:00Negative *NA*(11/03/14 1:07 PM) [facility] ERHRA7369-45-37 18:07:001.0[facility] LSEPL6637-55-85 18:07:00Negative (11/03/14 1:07 PM)[facility] CHEM 2014-11-03 18:07:00Negative (11/03/14 1:07 PM)[facility]annCARDIAC ENZYMES 2014-11-03 16:45:00<0.02[facility]annCARDIAC DOIKBQS9084-69-79 14:00:00 <0.02[facility]annCARDIAC RQQTALO7047-64-30 14:00:09941Xolailwl [facility] CARDIAC YPPGXXU6729-30-42 14:00:000.5[facility]annCARDIAC WLBEYXP1462-28-91 14:00:0018[facility]annC[facility]AC IJXVMQM5178-76-75 14:00:000.3[facility] CHEM OCPKV2755-40-44 14:00:08470Tebrafmo HermannCHEM WSLWW0108-27-21 14:00:19540 [facility]annCHE[facility] JSLER9538-00-69 14:00:006[facility]annCHEM PANEL 2014-11-03 14:00:000.8[facility]annCHEM ZLGNH3398-36-59 14:00:35794Oosachtz HermannCHEM FARHX5850-76-83 14:00:003.7[facility]annCHEM NEVPM0987-58-84 14:00:009.5[facility]annCHEM YPBTU1969-29-55 14:00:008.2[facility]annCHEM HMBLE1006-52-74 14:00:0028[facility]annCHEM EVYFY4172-88-64 14:00:000.5 [facility]annCHEM WLIAU4820-06-89 14:00:0010.7[facility]annCHEM PANEL 2014-11-03 14:00:008[facility]annCHEM FGFLO2829-49-33 14:00:005.0[facility]annCHEM TIZOL0205-74-84 14:00:000.6[facility]annCHEM RAJRL2943-71-02 14:00:0016[facility]annCHEM HSWCN5489-87-66 14:00:0088[facility]annCHE[facility] PVSMK4953-69-52 14:00:0020[facility]annCHEM RSHZD1978-51-21 14:00:003.2 [facility]annCHE[facility] BCBKX5203-44-47 14:00:0085[facility]annHEMATOLOGY 2014-11-03 14:00:000.8[facility] UhsfsnmSFQVCUMKPZ1824-98-12 14:00:001.3[facility] HygwbhiEYZVYOYQAW4569-43-42 14:00:002.4[facility] WfkxzcfEWOMNDVQSD0062-49-16 14:00:000.4[facility] HwwcgiwORSQFIPFBN9870-69-37 14:00:003+ *NA*(11/03/14 9:00 AM) [facility] JqbxmtmJKVESAKYXC3864-78-87 14:00:000.1[facility]annHEMATOLOGY 2014-11-03 14:00:0057.0[facility] IfmgqusQGOLHUALIM0544-48-39 14:00:0030.7[facility] IyfgijtGVTJELTHUT4861-30-39 14:00:001.7[facility] BmhxxjdZKVLGLTXUI3685-12-81 14:00:009.8[facility] UckgmdoAWKHZEVGTS0322-03-36 14:00:00Normal (11/03/14 9:00 AM) [facility] TvzpleiGHRBFXNKMI8787-73-52 14:00:007.6[facility]annHEMATOLOGY 2014-11-03 14:00:09489Xiylahtl NfjhvxgXYOSCXFPFA7776-15-83 14:00:00 Test Item Value Reference Range Interpretation Comments MCH (test code = MCH) 20.5 pg 27.0-31.0 [facility] ZfurhnwTGKDTSRXKV6612-47-37 14:00:0030.3[facility]annHEMATOLOGY 2014-11-03 14:00:0017.4[facility] YlcgluvROPYFRENQZ7158-34-02 14:00:008.1[facility] MyssaghWXRDBXLIZK7915-87-16 14:00:0026.7[facility] QmwlrecHSRFWBPTQT0378-69-16 14:00:0067.6[facility] MtxuklcHIKLVEQIWV4452-35-19 14:00:003.95[facility] UMXHVLAVDV5094-65-87 14:00:004.2[facility] TokqohjUGNZJWPELV2123-93-61 14:00:00 0.27[facility] EcfgszsPZATMTHWI2072-98-71 21:55:00Negative (03/07/2013 15:55:00) [facility] WmjukxnIAWDCZENFD6183-02-72 21:55:00Negative *NA*(03/07/2013 15:55:00) [facility] RxqoyhkHSHLOFWDEE7325-32-45 21:55:00Negative (03/07/2013 15:55:00) [facility] FyyjyftTOTTEHNCUF0885-58-08 21:55:00Negative *NA*(03/07/2013 15:55:00) [facility] AyyoadgVIDHBDULRT6850-89-26 21:55:00Trace *ABN*(03/07/2013 15:55:00) [facility] BvrorinZXCJPFBJPB0678-51-07 21:55:00Negative (03/07/2013 15:55:00) [facility] JceghdpROWAIYVDGV7590-15-12 21:55:00 Test Item Value Reference Range Interpretation Comments UA pH (test code = UA pH) 7.5 1 5.0-8.0 N [facility] CpwycczGTJBOIQMJM9495-17-26 21:55:00Negative (03/07/2013 15:55:00) [facility] PuuzdccPSZTSYCSTE2737-94-43 21:55:001.0[facility]annURINALYSIS 2013-03-07 21:55:00Negative (03/07/2013 15:55:00)[facility]annURINALYSIS 2013-03-07 21:55:00 Test Item Value Reference Range Interpretation Comments UA Spec Grav (test code = UA Spec 1.015 1 N Grav) [facility] HtxzxnbDTZSGBNSIF5027-63-25 21:55:00Yellow *NA*(03/07/2013 15:55:00) [facility] HxksntwQYVWEBCJVK1198-46-65 21:55:00Clear (03/07/2013 15:55:00)[facility] TakyfbxNJZVLBEPAJ1819-31-03 21:55:00Performed (03/07/2013 15:55:00)[facility] CulruzyJNOEHEVJH8442-17-67 15:45:450.2[facility] XgjmigxBXGBDRGKZ3029-11-87 15:45:451.9[facility] DycqcbmFPPZZCOYA1725-11-92 15:45:451.1[facility] XAOLHCHUW6432-81-48 15:45:45<0.02[facility] LnmyvnbEQQEWCGXH5177-24-57 15:45:45 82[facility] DtalijeXBZPZWTHT3023-78-40 15:45:457[facility] HermannCHEMISTRY 2013-03-07 15:45:453.9[facility] UfpualeBZKHIPZQN0914-43-28 15:45:459.6[facility] JjwnfenQPXNURUCF3276-50-55 15:45:4512.9[facility] BbdspwiGDWQFIVXY6265-89-48 15:45:92553Zzaikxdm HdbokjkQKYXKYTDN9365-28-96 15:45:73395Ewenntbk [facility] YJNSZLRNL6812-14-31 15:45:4524[facility] EefdhgnBPJSQTJUV6006-86-79 15:45:450.9 [facility] YvuqtfcHFGVXTJKK0207-98-80 15:45:03518Tpnyasyg HermannCHEMISTRY 2013-03-07 15:45:42913Ahvciwhx HermannVIRAL - CVIHLCIV7401-07-41 15:45:37 Negative (03/07/2013 09:45:37)[facility] HermannVIRAL - LGADIVJX2352-31-35 15:45:37Negative 1(03/07/2013 09:45:37)[facility] HfkdowhYVFEUYVMVQ0620-95-00 15:45:000.1[facility] EiinjgmGSQXDFWSMZ5968-46-16 15:45:000.0[facility] VUQIYNFKFE8723-11-15 15:45:00Slight *ABN*(03/07/2013 09:45:00)[facility] ZLCEWFHUBC5530-59-09 15:45:00Slight *ABN*(03/07/2013 09:45:00)[facility] LBQWDTETHS1442-90-27 15:45:00Normal (03/07/2013 09:45:00)[facility] YVSCUHTFHK3630-49-01 15:45:000.0[facility] UfyxcbhHVTAMIKZDI3657-40-98 15:45:001+ *ABN*(03/07/2013 09:45:00)[facility] LyvjyeyZYTKWDBKYG4381-49-08 15:45:000.2 [facility] NplmjjeKPCOCHGGDS4749-38-96 15:45:000.0[facility]annHEMATOLOGY 2013-03-07 15:45:000.4[facility] ElsspifFKCOEXAKDP9587-38-22 15:45:006.7[facility] QjyedftILTWSKTHQD3819-84-54 15:45:0091.4[facility] KviailtAEKISMXFIB6182-17-64 15:45:003.3[facility] VfdodpkNMHUGUNRXI2910-63-48 15:45:005.2[facility] YISPORPFKY7481-54-42 15:45:00Slight (03/07/2013 09:45:00)[facility] FUEXMMLJUF5994-36-16 15:45:00Slight (03/07/2013 09:45:00)[facility] SLEHJLTBEZ8570-79-99 15:45:003.99[facility] EgagzedEPYDXZSBVH7495-43-47 15:45:00 8.3[facility] ZcmrsvbPKGDICZBJV6800-20-07 15:45:007.3[facility]annHEMATOLOGY 2013-03-07 15:45:27976Ridnnsyv XoqxqkuZHQBQPGOES9750-11-39 15:45:0017.9[facility] BorfsgkZMKUGRFHPJ9224-16-57 15:45:0026.1[facility] BmnhqgbFXWDTHSPSY4126-20-50 15:45:00 Test Item Value Reference Range Interpretation Comments MCH (test code = MCH) 20.7 pg 27.0-31.0 L [facility] FjmlrorMCMTECZWKI4304-26-99 15:45:0065.4[facility]annHEMATOLOGY 2013-03-07 15:45:0031.7[facility] DwfztedTLOCWUOETV0633-76-64 15:45:008.0[facility]
[2020-09-03] MEDS ORDERED: ASPIRIN 81 MG CHEWABLE TABLET ONE (00:39)
[2020-09-03] MEDS ORDERED: FAMOTIDINE 20 MG/2 ML VIAL IV ONE (00:39)
[2020-09-03] MEDS ORDERED: NA CHLORIDE 0.9% 1,000 ML ONE (00:39)
[2020-09-03 00:41] LABS: Absolute Lymphocytes (CBC) 2.5 K/uL (0.7-4.9); Basophils % 0.3 % (0-1.3); Hematocrit 38.3 % (36.0-45.0); MPV 8.6 fL (7.6-11.3); Protime INR 1.21; RBC Red Blood Cell Count 4.37 M/uL (3.86-4.86)
[2020-09-03 01:00] LABS: ALT/SGPT 35 U/L (12-78); AST/SGOT 19 U/L (15-37); Albumin 3.5 g/dL (3.4-5.0); Alkaline Phosphatase 110 U/L (45-117); BUN Blood Urea Nitrogen 12 mg/dL (7-18); Bicarbonate 27 mmol/L (21-32); Bilirubin Direct < 0.1 mg/dL (0-0.2); Bilirubin Total 0.3 mg/dL (0.2-1.0); Glucose Level 107 mg/dL (74-106); Lipase 167 U/L (73-393); Magnesium 2.3 mg/dL (1.8-2.4); NT PRO-BNP 18 pg/mL (<125); Protein, Total 9.2 g/dL (6.4-8.2); Sodium Level 139 mmol/L (136-145); Troponin (Emerg Dept Use Only) < 0.02 ng/mL (0.0-0.045)
--- NOTE | 2020-09-03 02:38 | EDPHYS ---
Physician Documentation [facility] Name: Roxana Sanchez Age: 45 yrs Sex: Female : 1975 Arrival Date: 09/02/2020 Time: 21:52 Bed 7 Private MD: ED Physician Shahbaz Corado HPI: 09/03 02:28 This 45 yrs old Black Female presents to ER via Ambulatory with complaints of Chest olayinka Pain, Back Pain. 02:28 The patient or guardian reports chest pain that is located primarily in the substernal olayinka area, anterior chest wall, left. Onset: yesterday. The pain radiates to back. Associated signs and symptoms: The patient has no apparent associated signs or symptoms. The chest pain is described as a pressure, sharp. Duration: The patient or guardian reports multiple episodes, that wax and wane. Modifying factors: The symptoms are alleviated by nothing. the symptoms are aggravated by nothing. Severity of pain: At its worst the pain was moderate in the emergency department the pain is unchanged. The patient has not experienced similar symptoms in the past. 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 - Social history:: Smoking status: Patient denies any tobacco usage or history of. - Family history:: not pertinent. ROS: 09/03 02:28 Constitutional: Negative for fever, chills, and weight loss, Eyes: Negative for injury, olayinka pain, redness, and discharge, ENT: Negative for injury, pain, and discharge, Neck: Negative for injury, pain, and swelling, Respiratory: Negative for shortness of breath, cough, wheezing, and pleuritic chest pain, Abdomen/GI: Negative for abdominal pain, nausea, vomiting, diarrhea, and constipation, : Negative for injury, bleeding, discharge, and swelling, MS/Extremity: Negative for injury and deformity, Skin: Negative for injury, rash, and discoloration, Neuro: Negative for headache, weakness, numbness, tingling, and seizure, Psych: Negative for depression, anxiety, suicide ideation, homicidal ideation, and hallucinations, Allergy/Immunology: Negative for hives, rash, and allergies, Endocrine: Negative for neck swelling, polydipsia, polyuria, polyphagia, and marked weight changes, Hematologic/Lymphatic: Negative for swollen nodes, abnormal bleeding, and unusual bruising. Cardiovascular: Positive for chest pain, of the chest. Back: Negative for injury or acute deformity, decreased range of motion, pain at rest, pain with movement. Exam: 02:30 Constitutional: This is a well developed, well nourished patient who is awake, alert, olayinka and in no acute distress. Head/Face: Normocephalic, atraumatic. Eyes: Pupils equal round and reactive to light, extra-ocular motions intact. Lids and lashes normal. Conjunctiva and sclera are non-icteric and not injected. Cornea within normal limits. Periorbital areas with no swelling, redness, or edema. ENT: Nares patent. No nasal discharge, no septal abnormalities noted. Tympanic membranes are normal and external auditory canals are clear. Oropharynx with no redness, swelling, or masses, exudates, or evidence of obstruction, uvula midline. Mucous membranes moist. Neck: Trachea midline, no thyromegaly or masses palpated, and no cervical lymphadenopathy. Supple, full range of motion without nuchal rigidity, or vertebral point tenderness. No Meningismus. Chest/axilla: Normal chest wall appearance and motion. Nontender with no deformity. No lesions are appreciated. Cardiovascular: Regular rate and rhythm with a normal S1 and S2. No gallops, murmurs, or rubs. Normal PMI, no JVD. No pulse deficits. Respiratory: Lungs have equal breath sounds bilaterally, clear to auscultation and percussion. No rales, rhonchi or wheezes noted. No increased work of breathing, no retractions or nasal flaring. Abdomen/GI: Soft, non-tender, with normal bowel sounds. No distension or tympany. No guarding or rebound. No evidence of tenderness throughout. Back: No spinal tenderness. No costovertebral tenderness. Full range of motion. Skin: Warm, dry with normal turgor. Normal color with no rashes, no lesions, and no evidence of cellulitis. MS/ Extremity: Pulses equal, no cyanosis. Neurovascular intact. Full, normal range of motion. Neuro: Awake and alert, GCS 15, oriented to person, place, time, and situation. Cranial nerves II-XII grossly intact. Motor strength 5/5 in all extremities. Sensory grossly intact. Cerebellar exam normal. Normal gait. Psych: Awake, alert, with orientation to person, place and time. Behavior, mood, and affect are within normal limits. Vital Signs: 09/02 22:13 BP 139 / 97; Pulse 79; Resp 18 S; Temp 98.6(O); Pulse Ox 97% on R/A; Weight 90.72 kg bb (R); Height 5 ft. 4 in. (162.56 cm) (R); Pain 8/10; 09/03 00:55 BP 141 / 64; Pulse 66; Resp 18; Pulse Ox 100% on R/A; Pain 7/10; ss 02:00 BP 110 / 68; Pulse 62; Resp 15; Pulse Ox 100% ; Pain 5/10; ss 03:20 BP 115 / 65; Pulse 68; Resp 17; Pulse Ox 99% ; rr5 04:21 BP 114 / 81; Pulse 69; Resp 19; Pulse Ox 98% ; rr5 09/02 22:13 Body Mass Index 34.33 (90.72 kg, 162.56 cm) bb MDM: 09/02 23:57 Patient medically screened. olayinka 09/03 02:30 Differential diagnosis: abnormal EKG, anxiety, coronary artery disease chest wall pain, olayinka cholecystitis, Cholelithiasis costochondritis, esophagitis, hiatal hernia, pancreatitis, peptic ulcer disease, pneumonia, stable angina. HEART Score: History: Moderately Suspicious (1), ECG: Normal (0), Age: < or = 45 years (0), Risk Factors: 1 or 2 risk factors (1), [+ Family HX] [Obesity] Troponin: < or = 1 x Normal Limit (0). The patient was given aspirin in the Emergency Department. The patient's deep vein thrombosis risk score was calculated as follows: Total Score: 0. This patient was found to be at low risk for a deep vein thrombosis by using the Well's assessment criteria. The patient's pulmonary embolism risk score was calculated as follows: Total Score: 0-2 points. This patient was found to be at low risk for a pulmonary embolism by using the Well's assessment criteria. ANMOL Risk Score: TOTAL SCORE = 0. Data reviewed: vital signs, nurses notes, lab test result(s), EKG, radiologic studies, CT scan, plain films. Data interpreted: radiation monitor: rate is 66 beats/min, rhythm is regular, Pulse oximetry: on room air is 100 %. Test interpretation: by ED physician or midlevel provider: ECG, plain radiologic studies. Counseling: I had a detailed discussion with the patient and/or guardian regarding: the historical points, exam findings, and any diagnostic results supporting the discharge/admit diagnosis, lab results, radiology results, the need for further work-up and treatment in the hospital. 09/03 00:01 Order name: Basic Metabolic Panel; Complete Time: :45 [facility] 09/03 00:01 Order name: CBC with Diff; Complete Time: :45 [facility] 09/03 00:01 Order name: LFT's; Complete Time: :45 [facility] 09/03 00:01 Order name: Magnesium; Complete Time: :45 [facility] [place] 09/03 00:01 Order name: NT PRO-BNP; Complete Time: :45 [facility] [place] 09/03 00:01 Order name: PT-INR; Complete Time: :45 [facility] [place] 09/03 00:01 Order name: Troponin (emerg Dept Use Only); Complete Time: :45 [facility] [place] 09/03 00:01 Order name: XRAY Chest (1 view) [facility] 09/03 00:01 Order name: Lipase; Complete Time: :45 [facility] [place] 09/03 00:01 Order name: Urine Culture [facility] 09/03 02:50 Order name: Troponin (emerg Dept Use Only): now [facility] [place] 09/03 02:51 Order name: Troponin (Emerg Dept Use Only) [facility] 09/03 03:08 Order name: Urine --Ancillary (enter results) nm 09/03 03:11 Order name: Urine Dipstick-Ancillary [facility] 09/03 00:01 Order name: EKG; Complete Time: 00:03 [facility] [place] 09/03 00:01 Order name: Cardiac monitoring; Complete Time: 00:17 [facility] [place] 09/03 00:01 Order name: EKG - Nurse/Tech; Complete Time: 00:17 [facility] [place] 09/03 00:01 Order name: IV Saline Lock; Complete Time: 00:17 [facility] [place] 09/03 00:01 Order name: Labs collected and sent; Complete Time: 00:17 [facility] [place] 09/03 00:01 Order name: O2 Per Protocol; Complete Time: 00: [facility] [place] 09/03 00:01 Order name: O2 Sat Monitoring; Complete Time: 00: [facility] [place] 09/03 00:01 Order name: Urine Dipstick-Ancillary (obtain specimen); Complete Time: 03:31 [facility] [place] 09/03 00:30 Order name: CT Aorta for Dissection [facility] Administered Medications: 00:25 Drug: NS 0.9% 1000 ml Route: IV; Rate: 1 bolus; Site: right antecubital; ss 04:00 Follow up: IV Status: Completed infusion; IV Intake: 1000ml ss 00:26 Drug: Aspirin 162 mg Route: PO; ss 00:57 Follow up: Response: No adverse reaction; No change in condition 00:26 Drug: Pepcid (famotidine) 20 mg Route: IVP; Site: right antecubital; ss 00:57 Follow up: Response: No adverse reaction; No change in condition Disposition: 09/03/20 04:04 Discharged to Home. Impression: Functional dyspepsia, Other chest pain. - Condition is Stable. - Discharge Instructions: Nonspecific Chest Pain, Indigestion, Nonspecific Chest Pain, Twpd-dx-Aacs, Aspirin and Your Heart. - Prescriptions for Pepcid 20 mg Oral Tablet - take 1 tablet by ORAL route every 12 hours for 10 days; 20 tablet. - Medication Reconciliation Form, Thank You Letter, Antibiotic Education, Prescription Opioid Use form. - Follow up: Private Physician; When: 2 - 3 days; Reason: Recheck today's complaints, Continuance of care, Re-evaluation by your physician. Follow up: Rikki Teixeira MD; When: 2 - 3 days; Reason: Recheck today's complaints, Re-evaluation by your physician. Follow up: Fernando Varghese MD; When: 2 - 3 days; Reason: Recheck today's complaints, Re-evaluation by your physician. - Problem is new. - Symptoms have improved. Signatures: Dispatcher [employer] Shahbaz Saucedo MD MD cha Ballard, Brenda, RN RN bb Smirch, Shelby, RN RN ss Corrections: (The following items were deleted from the chart) 00:25 00:01 Urine Test ordered. olayinka ss 04:02 02:38 Hospitalization Ordered by Robin Nguyen DO for Observation. Preliminary olayinka diagnosis is Chest pain, unspecified; Dyspnea. Bed requested for Telemetry/MedSurg (observation). Status is Observation. Condition is Stable. Problem is new. Symptoms have improved. olayinka 04:25 04:04 09/03/2020 04:04 Discharged to Home. Impression: Functional dyspepsia; Other ss chest pain. Condition is Stable. Forms are Medication Reconciliation Form, Thank You Letter, Antibiotic Education, Prescription Opioid Use. Follow up: Private Physician; When: 2 - 3 days; Reason: Recheck today's complaints, Continuance of care, Re-evaluation by your physician. Follow up: Rikki Teixeira; When: 2 - 3 days; Reason: Recheck today's complaints, Re-evaluation by your physician. Follow up: Fernando Varghese; When: 2 - 3 days; Reason: Recheck today's complaints, Re-evaluation by your physician. Problem is new. Symptoms have improved. olayinka
--- NOTE | 2020-09-03 02:38 | ER ---
Nurse's Notes [facility] Name: oRxana Sanchez Age: 45 yrs Sex: Female : 1975 Arrival Date: 09/02/2020 Time: 21:52 Bed 7 Private MD: Diagnosis: Functional dyspepsia;Other chest pain Presentation: 09/02 22:13 Chief complaint: Patient states: she is having chest pain since yesterday and back pain bb when she eats. Coronavirus screen: At this time, the client does not indicate any symptoms associated with coronavirus-19. Ebola Screen: No symptoms or risks identified at this time. Initial Sepsis Screen: Does the patient meet any 2 criteria? No. Patient's initial sepsis screen is negative. Does the patient have a suspected source of infection? No. Patient's initial sepsis screen is negative. Risk Assessment: Do you want to hurt yourself or someone else? Patient reports no desire to harm self or others. Onset of symptoms was September 01, 2020. 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 - Social history:: Smoking status: Patient denies any tobacco usage or history of. - Family history:: not pertinent. Screenin/11 00:00 Abuse screen: Denies threats or abuse. Denies injuries from another. Nutritional ss screening: No deficits noted. Tuberculosis screening: Never had TB. Fall Risk None identified. Assessment: 09/02 23:50 General: Appears in no apparent distress. Behavior is calm, cooperative. Pain: ss Complains of pain in chest, under L breast Pain radiates to back Pain currently is 7 out of 10 on a pain scale. Quality of pain is described as "feels like gas." Pain began "I noticed it yesterday." Is intermittent, Aggravated by eating. Neuro: Level of Consciousness is awake, alert, obeys commands, Oriented to person, place, time, situation, In Store Marketing Representative are equal bilaterally Speech is normal, Facial symmetry appears normal, Pupils are PERRLA. Cardiovascular: Denies nausea, palpitations, shortness of breath, syncope, Heart tones S1 S2 present Capillary refill < 3 seconds is brisk in bilateral fingers Patient's skin is warm and dry. Pulses are all present. Rhythm is regular Chest pain quality is indigestion, radiates "to back at times". Respiratory: Airway is patent Respiratory effort is even, unlabored, Respiratory pattern is regular, symmetrical, Denies cough, shortness of breath pain with respiration, pain with cough, pain with movement. GI: No signs and/or symptoms were reported involving the gastrointestinal system. Abdomen is round non-distended, Reports bloating, gaseousness, indigestion. : Denies burning with urination, urinary frequency. EENT: Oral mucosa is moist. Throat is clear. Derm: Skin is intact, is healthy with good turgor, Skin is dry, Skin is pink, warm \\T\\ dry. normal. 09/03 01:00 Reassessment: Patient appears in no apparent distress at this time. Patient and/or ss family updated on plan of care and expected duration. Pain level reassessed. Patient is alert, oriented x 3, equal unlabored respirations, skin warm/dry/pink. 02:00 Reassessment: Patient appears in no apparent distress at this time. No changes from ss previously documented assessment. Patient and/or family updated on plan of care and expected duration. Pain level reassessed. Patient states feeling better. 03:00 Reassessment: Repeat troponin drawn and sent. Pt ambulated to restroom with steady ss gait. PT reports that her pain has improved. Refused assistance with wheelchair to restroom. 04:24 Reassessment: Patient appears in no apparent distress at this time. Patient is alert, rr5 oriented x 3, equal unlabored respirations, skin warm/dry/pink. discharge instruction given and explained without complaints made. Vital Signs: 09/02 22:13 BP 139 / 97; Pulse 79; Resp 18 S; Temp 98.6(O); Pulse Ox 97% on R/A; Weight 90.72 kg bb (R); Height 5 ft. 4 in. (162.56 cm) (R); Pain 8/10; 09/03 00:55 BP 141 / 64; Pulse 66; Resp 18; Pulse Ox 100% on R/A; Pain 7/10; ss 02:00 BP 110 / 68; Pulse 62; Resp 15; Pulse Ox 100% ; Pain 5/10; ss 03:20 BP 115 / 65; Pulse 68; Resp 17; Pulse Ox 99% ; rr5 04:21 BP 114 / 81; Pulse 69; Resp 19; Pulse Ox 98% ; rr5 09/02 22:13 Body Mass Index 34.33 (90.72 kg, 162.56 cm) bb ED Course: 09/02 21:52 Patient arrived in ED. cf2 22:15 Triage completed. bb 22:15 Arm band placed on Patient placed in waiting room, Patient notified of wait time. EKG bb completed in triage. Results shown to MD. Family accompanied patient. 23:57 Shahbaz Corado MD is Attending Physician. olayinka 09/03 00:00 Patient has correct armband on for positive identification. Bed in low position. Call ss light in reach. teletypesetter monitor on. Pulse ox on. NIBP on. Warm blanket given. 00:00 Patient maintains SpO2 saturation greater than 95% on room air. ss 00:12 Inserted saline lock: 20 gauge in right antecubital area, using aseptic technique. ss Blood collected. 00:16 Tico Null, RN is Primary Nurse. em 00:24 XRAY Chest (1 view) In Process Unspecified. EDMS 02:15 CT Aorta for Dissection In Process Unspecified. EDMS 02:37 Robin Nguyen DO is Hospitalizing Provider. olayinka 04:02 Rikki Teixeira MD is Referral Physician. olayinka 04:03 Fernando Varghese MD is Referral Physician. olayinka 04:21 No provider procedures requiring assistance completed. IV discontinued, intact, rr5 bleeding controlled, No redness/swelling at site. Pressure dressing applied. Administered Medications: 00:25 Drug: NS 0.9% 1000 ml Route: IV; Rate: 1 bolus; Site: right antecubital; ss 04:00 Follow up: IV Status: Completed infusion; IV Intake: 1000ml ss 00:26 Drug: Aspirin 162 mg Route: PO; ss 00:57 Follow up: Response: No adverse reaction; No change in condition 00:26 Drug: Pepcid (famotidine) 20 mg Route: IVP; Site: right antecubital; ss 00:57 Follow up: Response: No adverse reaction; No change in condition ss Intake: 04:00 IV: 1000ml; Total: 1000ml. Outcome: 02:38 Decision to Hospitalize by Provider. [facility] 04:00 Discharged to home ambulatory. rr5 04:00 Condition: stable 04:00 Discharge instructions given to patient, Instructed on discharge instructions, follow up and referral plans. medication usage, Demonstrated understanding of instructions, follow-up care, medications, Prescriptions given X 1. 04:04 Discharge ordered by . [facility] 04:25 Patient left the ED. ss Signatures: Dispatcher [employer] EDShahbaz Cabrera MD MD cha Munoz, Edgar, RN RN Veronica Ham RN RN bb Smirch, Shelby, RN RN ss Roque, Raymond, RN RN rr5 Lisa Cannon cf2
[2020-09-03 03:12] LABS: Urine Blood Negative (Negative); Urine Glucose Negative (Negative); Urine Protein Negative (Negative); Urine Specific Gravity 1.025 (1.005-1.030); Urine pH 6.5 (5.0-7.0)
[2020-09-03 03:17] LABS: Urine Specific Gravity/Preg 1.025 (1.005-1.030)
[2020-09-03 04:47] VITALS: TEMP 98.6
[2020-09-03 04:52] VITALS: BP 114/81; O2SAT 98
--- NOTE | 2020-09-03 07:27 | RAD REPORT ---
EXAM DESCRIPTION: Shar Single View09/03/2020 12:24 am CLINICAL HISTORY: Chest pain COMPARISON: 2015 FINDINGS: The lungs appear clear of acute infiltrate. The heart is mildly enlarged IMPRESSION: No acute abnormalities displayed
--- NOTE | 2020-09-03 12:16 | RAD REPORT ---
EXAM DESCRIPTION: CT - Angio Aorta For Dissection - 09/03/2020 4:21 am COMPARISON: CT abdomen and pelvis March 25, 2019 CLINICAL HISTORY: [facility] MA[facility] Abdominal distention;Cough;Chest pain TECHNIQUE: CTA of the chest, abdomen and pelvis was acquired with IV contrast material. Coronal and sagittal reconstructions were obtained. Automated exposure control was utilized on this examination a s a dose lowering technique. CTA FINDINGS: No dissection or aneurysm. No occlusion or significant stenosis. NONVASCULAR CHEST FINDINGS: Heart and mediastinum: Heart size is normal. No lymphadenopathy. Thyroid gland: Visualized portions are normal. Lungs: Clear. Airways: No filling defects. No bronchiectasis. Pleura: No pneumothorax. No significant pleural effusion. Musculoskeletal and soft tissues: Within normal limits for age. CHEST IMPRESSION: No acute chest process. NONVASCULAR ABDOMEN & PELVIS FINDINGS: Liver: Normal. Gallbladder and biliary: Normal gallbladder. Unremarkable biliary tree. Pancreas: Normal. Spleen: Normal. Kidneys and adrenal glands: Normal adrenal glands. 5 mm nonobstructing left renal calculus. Mild left hydronephrosis. Stomach and Small Bowel: The stomach and small bowel are normal. Urinary bladder: Distended. Uterus and Adnexa: Atrophic or absent uterus. Colon and Appendix: The colon is unremarkable. No evidence of appendicitis. Peritoneal cavity: Trace pelvic fluid is present. No intraperitoneal free air. Retroperitoneum and lymph nodes: Normal. Musculoskeletal and soft tissues: Soft tissues are unremarkable. No aggressive bone lesions. No com pression fracture. ABDOMEN AND PELVIS IMPRESSION: Mild left hydronephrosis with distended urinary bladder. No visualize d obstructing calculus. A nonobstructing left renal calculus measures 5 mm. Electronically signed by: Jeremiah Dale MD 09/03/2020 3:03 AM CDT Due to temporary technical issues with the PACS/Fluency reporting system, reports are being signed by the in house radiologist without review as a courtesy to ensure prompt reporting. The interpreting r adiologist is fully responsible for the content of the report.
== END 2020-09-03 04:25 | disposition home or self-care (01) ==
LOC: ER 21:52
DX: R07.89 Other chest pain (principal); K30 Functional dyspepsia; K21.9 Gastro-esophageal reflux disease without esophagitis; F41.9 Anxiety disorder, unspecified; F32.9 Major depressive disorder, single episode, unspecified
CPT/HCPCS: 36415; 71045; 71275; 74175; 80048; 80076; 81003; 81025; 83690; 83735; 83880; 84484; 85025; 85610; 87086; 87088; 93005; 96361; 96374; 99285; J7030; Q9967

== ENCOUNTER 2021-03-29 19:48 | Emergency (ER) | payer SELFPAY ==
--- OUTSIDE RECORDS SUMMARY | 2021-03-29 19:52 | XMS REPORT | Continuity of Care Document ---
:[address] [facility] t Address [address] [place] [address] Care Team Providers Name Role Phone Jayden Collins MD Attending Clinician Jayden COLLINS Attending Clinician Unavailable Brandy Caal Attending Clinician Brandy OCAMPO Attending Clinician Unavailable Ranjit RAY Attending Clinician RANJIT Attending Clinician Unavailable Payers Payer Name Policy Type Policy Number Effective Date Expiration Date S [place] [employer] [place] [id number] 2018 00:00:00 WOMEN Problems Condition Condition Condition Status Onset Resolution Last Treating Co mments Source Name Details Category Date Date Treatment Clinician Date No known No known Disease Unive rs active active ity of problems problems [facility] Allergies, Adverse Reactions, Alerts Allergy Allergy Status Severity Reaction(s) Onset Inactive Treating Comm ents Source Name Type Date Date Clinician HYDROCOD DRUG Active Hallucinates Un kiara ONE INGREDI 4-20 ity of 00:00: [address] Hydrocod Propensi Active Shortness of 0 Univers one ty to Breath 4-20 ity of adverse 00:00: [place] reaction [address] [place] [address] s [place] Social History Social Habit Start Date Stop Date Quantity Comments Source Exposure to Not sure University SARS-CoV-2 [facility] (event) [place] Alcohol intake 2020-05-05 2020-05-05 Current University of 00:00:00 00:00:00 non-drinker of [facility] alcohol Branch (finding) Tobacco use and 2020-05-05 2020-05-05 Never used Universit y of exposure 00:00:00 00:00:00 [facility] Sex Ass[birth year] Universit y of 00:00:00 00:00:00 [facility] Smoking Status Start Date Stop Date Source Never smoker [facility] Branch Medications Ordered Filled Start Stop Current Ordering Indication Dosage Frequency Signature Comments Components Source Medication Medication Date Date Medication? Clinician (SIG) Name Name NaCl 0.9% Yes 1000mL at 999 Univ ers (NS) IV 6-19 mL/hr, ity of infusion 03:15: Intravenou Eddie as 1,000 mL 00 s, Medical CONTINUOUS Branch , Starting 09/10/20 at 2215, Until Discontinu ed, Routine naproxen Yes [id number] 550mg Take 1 U nivers sodium 550 6-18 tablet by ity of mg tablet 00:00: mouth 2 00 (two) Medical times Branch daily with meals. acetaminoph 2020- No 650mg 650 mg, U nivers en 05-05 Oral, ity of (TYLENOL) 22:45: 21:36 ONCE, 1 [place] tablet 650 00 :00 dose, Wed Medi liz mg 05/05/20 at Branch 1645, MESSI cephALEXin 2020- No [id number] 500mg Take 1 Univers 500 mg 05-05 capsule by ity of capsule 00:00: 05:59 mouth 4 [place] 00 :00 (four) Medical times Branch daily for 7 days. docusate Yes 250mg Take 1 Univer s sodium 250 7-07 capsule by ity of mg capsule 00:00: mouth [place] 00 daily. Medical Branch ondansetron Yes 4mg Take 1 Univ ers 4 mg 7-07 tablet by ity of disintegrat 00:00: mouth [place] ing tablet 00 every 4 Medica l (four) Branch hours as needed for Nausea and Vomiting (N/V). dicyclomine Yes 10mg Take 1 Univ ers (BENTYL) 10 7-07 capsule by it y of mg capsule 00:00: [place] (four) Medical times Branch daily. docusate 2018-0 Yes 250mg Take 1 Univer s sodium 250 7-07 capsule by ity of mg capsule 00:00: mouth [place] 00 daily. Medical Branch ondansetron 2018-0 Yes 4mg Take 1 Univ ers 4 mg 7-07 tablet by ity of disintegrat 00:00: mouth [place] ing tablet 00 every 4 Medica l (four) Branch hours as needed for Nausea and Vomiting (N/V). dicyclomine 2018-0 Yes 10mg Take 1 Univ ers (BENTYL) 10 7-07 capsule by it y of mg capsule 00:00: mouth [place] (four) Medical times Branch daily. docusate 2018-0 Yes 250mg Take 1 Univer s sodium 250 7-07 capsule by ity of mg capsule 00:00: mouth [place] 00 daily. Medical Branch ondansetron 2018-0 Yes 4mg Take 1 Univ ers 4 mg 7-07 tablet by ity of disintegrat 00:00: mouth [place] ing tablet 00 every 4 Medica l (four) Branch hours as needed for Nausea and Vomiting (N/V). dicyclomine 2018-0 Yes 10mg Take 1 Univ ers (BENTYL) 10 7-07 capsule by it y of mg capsule 00:00: mouth [place] (four) Medical times Branch daily. amoxicillin 2018-0 Yes 500mg Take 1 Uni vers 500 mg 4-20 capsule by ity of capsule 00:00: mouth 3 [place] 00 (three) Medical times Branch daily. ibuprofen 2018-0 Yes 800mg Take 1 Unive rs 800 mg 4-20 tablet by ity of tablet 00:00: mouth [place] 00 every 8 Medical (eight) Branch hours. traMADOL 50 2018-0 Yes 50mg Take 1 Univ ers mg tablet 4-20 tablet by ity o f 00:00: mouth [place] 00 every 6 Medical (six) Branch hours as needed for Pain (scale 4-6). amoxicillin 2018-0 Yes 500mg Take 1 Uni vers 500 mg 4-20 capsule by ity of capsule 00:00: mouth 3 [place] 00 (three) Medical times Branch daily. ibuprofen 2018-0 Yes 800mg Take 1 Unive rs 800 mg 4-20 tablet by ity of tablet 00:00: mouth [place] 00 every 8 Medical (eight) Branch hours. traMADOL 50 2018-0 Yes 50mg Take 1 Univ ers mg tablet 4-20 tablet by ity o f 00:00: mouth [place] 00 every 6 Medical (six) Branch hours as needed for Pain (scale 4-6). amoxicillin 2018-0 Yes 500mg Take 1 Uni vers 500 mg 4-20 capsule by ity of capsule 00:00: mouth 3 [place] 00 (three) Medical times Branch daily. ibuprofen 2018-0 Yes 800mg Take 1 Unive rs 800 mg 4-20 tablet by ity of tablet 00:00: mouth [place] 00 every 8 Medical (eight) Branch hours. traMADOL 50 2018-0 Yes 50mg Take 1 Univ ers mg tablet 4-20 tablet by ity o f 00:00: mouth [place] 00 every 6 Medical (six) Branch hours as needed for Pain (scale 4-6). Vital Signs Vital Name Observation Time Observation Value Comments Source Systolic blood 2020-09-11 04:00:00 135 mm[Hg] Univer sity [facility] Diastolic blood 2020-09-11 04:00:00 70 mm[facility]Hg] [facility] 2020-09-11 04:00:00 61 /min [facility] Respiratory rate 2020-09-11 04:00:00 12 /min [facility] Oxygen saturation in 2020-09-11 04:00:00 99 /min [facility] Arterial blood by [facility] Pulse oximetry Branch Body temperature 2020-09-11 00:50:00 37.06 Kristy [facility] Body height 2020-09-11 00:50:00 165.1 cm [facility] Body weight 2020-09-11 00:50:00 86.183 kg [facility] BMI 2020-09-11 00:50:00 31.62 kg/m2 [facility] Heart rate 2020-05-05 22:41:00 92 /min [facility] Systolic blood 2020-05-05 21:09:00 109 mm[Hg] Univer sity [facility] Diastolic blood 2020-05-05 21:09:00 77 mm[Hg] [facility] temperature 2020-05-05 21:09:00 37.89 Kristy [facility] [place] [facility] Respiratory rate 2020-05-05 21:09:00 18 /min [facility] [place] [facility] Body weight 2020-05-05 21:09:00 86.183 kg [facility] [place] [facility] BMI 2020-05-05 21:09:00 32.61 kg/m2 [facility] [place] [facility] Oxygen saturation in 2020-05-05 21:09:00 100 /min University of Arterial blood by [facility] liz Pulse oximetry Branch Heart rate 2020-05-05 22:41:00 92 /min [facility] [place] [facility] Systolic blood 2020-05-05 21:09:00 109 mm[Hg] Univer sity of pressure [place] [facility] Diastolic blood 2020-05-05 21:09:00 77 mm[Hg] Unive rsity of pressure [place] [facility] Body temperature 2020-05-05 21:09:00 37.89 Kristy [facility] [place] [facility] Respiratory rate 2020-05-05 21:09:00 18 /min [facility] [place] [facility] Body weight 2020-05-05 21:09:00 86.183 kg [facility] [place] [facility] BMI 2020-05-05 21:09:00 32.61 kg/m2 [facility] [place] [facility] Oxygen saturation in 2020-05-05 21:09:00 100 /min University of Arterial blood by [facility] liz Pulse oximetry Branch Systolic blood 2019-10-04 23:45:19 136 mm[Hg] Univer sity of pressure [place] [facility] Diastolic blood 2019-10-04 23:45:19 87 mm[Hg] Unive rsity of pressure [place] [facility] Heart rate 2019-10-04 23:45:19 69 /min [facility] [place] [facility] Respiratory rate 2019-10-04 23:45:19 16 /min [facility] [place] [facility] Oxygen saturation in 2019-10-04 23:45:19 100 /min University of Arterial blood by [facility] liz Pulse oximetry Branch Body temperature 2019-10-04 21:25:00 36.61 Kristy [facility] [place] [facility] Body height 2019-10-04 21:25:00 162.6 cm [facility] [place] [facility] Body weight 2019-10-04 21:25:00 88.905 kg [facility] BMI 2019-10-04 21:25:00 33.64 kg/m2 [facility] Systolic blood 2019-10-04 23:45:19 136 mm[Hg] Univer sity of pressure [facility] Diastolic blood 2019-10-04 23:45:19 87 mm[Hg] Unive rsity of pressure [facility] Heart rate 2019-10-04 23:45:19 69 /min [facility] Respiratory rate 2019-10-04 23:45:19 16 /min [facility] Oxygen saturation in 2019-10-04 23:45:19 100 /min [facility] blood by [facility] Pulse oximetry [place] Body temperature 2019-10-04 21:25:00 36.61 Kristy [facility] Body height 2019-10-04 21:25:00 162.6 cm [facility] Body weight 2019-10-04 21:25:00 88.905 kg [facility] BMI 2019-10-04 21:25:00 33.64 kg/m2 [facility] Procedures Procedure Date / Time Performing Clinician Source Performed EKG-12 LEAD 2020-09-11 03:54:[address] [facility] XR CHEST 1 VW 2020-09-11 01:03:[address] [facility] CBC WITH DIFF 2020-09-11 00:55:[address] [facility] PROTHROMBIN TIME / INR 2020-09-11 00:55:00 Ingrid Collins [facility] ACTIVATED PARTIAL 2020-09-11 00:55:00 Ingrid oCllins [facility] THRMPLAS MELISSA [facility] LIPASE 2020-09-11 00:55:[address] [facility] TROPONIN I 2020-09-11 00:55:[address] [facility] COMP. METABOLIC PANEL 2020-09-11 00:55:00 Ingrid Collins [facility] ([id number]) Medical Branch CONSENT/REFUSAL FOR 2020-09-11 00:37:21 Doctor Unassigned, No [facility] [place] DIAGNOSIS AND TREATMENT Name Medical Branch URINALYSIS 2020-05-05 21:33:00 Marisol Ocampo [facility] NOTICE OF PRIVACY 2020-05-05 21:03:49 Doctor Unassigned, No [facility] [place] PRACTICES Name Medical Branch CONSENT/REFUSAL FOR 2020-05-05 21:02:41 Doctor Unassigned, No [facility] [place] DIAGNOSIS AND TREATMENT Name [facility] Branch XR FOOT 3+ VW LEFT 2019-10-04 22:26:37 Ranjit Church ty of [facility] NOTICE OF PRIVACY 2019-10-04 21:14:42 Doctor Unassigned, No [facility] [place] PRACTICES Name Medical Branch Encounters Start End Encounter Admission Attending Care Care Encounter Source Date/Time Date/Time Type Type Clinicians Facility Department ID 2020-09-10 2020-09-10 Emergency [facility] [id number] Univers 19:42:00 23:08:00 Baron Jayden Louise [id number] ity [facility] [id number] [facility] [id number] [address] 2020-09-10 2020-09-10 Emergency X [facility]ENDING S[facility] TO [facility] ERT [id number] Univers 19:42:00 [facility]:42:[facility] 2020-05-05 2020-05-05 Emergency [facility] [id number] 15:10:00 16:55:00 Marisol Louise [id number] [place] 4.2.7.2.686 [place] [id number] 2020-05-05 2020-05-05 Emergency [facility] [id number] Univers 15:10:00 16:55:00 Marisol [place] [id number] i ty of [place] 4.2.7.2.686 [facility] [id number] [address] 2020-05-05 2020-05-05 Emergency X [facility] ERT [id number] Univers 15:03:00 15:03:00 MARISOL [facility] 2019-10-04 2019-10-04 Emergency [facility] [id number] 16:26:50 19:58:00 Shinta Collins [id number] [place] 4.2.7.2.686 [place] [id number] [facility] 2019-10-04 2019-10-04 [facility] [id number] Univers 16:26:50 19:58:00 Shinta Collins [id number] i ty of [place] 4.2.7.2.686 [facility] [id number] [address] 2019-10-04 2019-10-04 Emergency [facility] [id number] Univers 16:26:50 16:26:50 RANJIT [facility] 2017-11-16 2017-11-16 Emergency E [facility] BL [id number] BL 21:34:00 21:34:00 2017-10-05 2017-10-05 Emergency [facility] [id number] [place] 12:20:00 12:20:00 Health 2017-07-14 2017-07-14 Emergency [facility] [id number] [place] 08:07:11 08:07:[address] [facility] 2017-07-14 2017-07-14 Outpatient [facility] [id number] [place] 05:07:03 05:07:03 Health Results Test Description Test Time Test Comments Results Result Comments Source TROPONIN I 2020-09-11 01:38:03 Test Item Value Reference Range Interpretation Comme nts TROPONIN I (test code = 0.002 ng/mL See_Comment [Au tomated message] The [id number]) system which ge nerated this result tra nsmitted reference range : <=0.034. The reference r nilam was not used to int erpret this result as normal/abnormal . YANIRA (test code = YANIRA) Equal or Less than 0.034 ng/ml---Normal ?Note: Cardiac troponin begins to rise 3-4 hours after the onset of ischemia. Repeat in 4-6 hours if the sample was drawn within 3-4 hours of the onset of the symptom and found normal. Between 0.035 and 0.120 ng/mL--- Borderline. Questionable myocardial injury or necrosis ? ?Note: Serial measurement may be necessary to confirm or exclude the diagnosis of myocardial injury or necrosis; Clinical correlation (symptoms, EKGs, imaging studies, and others) required; Repeat in 4-6 hours if clinically indicated. ? Equal or Higher than 0.121 ng/mL---Abnormal. Myocardial Injury or Necrosis Likely ? Biotin has been reported to cause a negative bias, interpret results relative to patient's use of biotin. ? Lab Interpretation (test Normal code = 85889-2) [facility][id number][facility]2020-09-11 01:38:03 Test Item Value Reference Range Interpretation Comments NA (test code = 141 mmol/L 135-145 3939443777) K (test code = 3.9 mmol/L 3.5-5.0 1665524639) CL (test code = 103 mmol/L 98-108 3270324263) CO2 TOTAL (test code = 27 mmol/L 23-31 3693612153) AGAP (test code = 2-16 7320693118) BUN (test code = 13 mg/dL 7-23 7839964042) GLUCOSE (test code = 131 mg/dL 70-110 H 6582350690) CREATININE (test code = 0.76 mg/dL 0.50-1.04 1550699716) TOTAL BILI (test code = 0.4 mg/dL 0.1-1.6 2695380810) CALCIUM (test code = 11.4 mg/dL 8.6-10.6 H 2277346019) T PROTEIN (test code = 9.5 g/dL 6.3-8.2 H 5028767947) ALBUMIN (test code = 4.6 g/dL 3.5-5.0 5494952814) ALK PHOS (test code = 108 U/L 34-122 8622087327) ALTv (test code = 26 U/L 5-35 2-6) AST(SGOT) (test code = 33 U/L 13-40 6684795062) eGFR (test code = mL/min/1.73m2 3810967577) YANIRA (test code = YANIRA) Association of Glomerular Filtration Rate (GFR) and Staging of Kidney Disease* + --+ --+ ------+| GFR (mL/min/1.73 m2) ?| With Kidney Damage ?| ?Without Kidney Damage+ --------+ --------+ +| ?>90 ?| ?Stage one ?| ? Normal ?+ ---+ ---+ -------+| ?60-89 ?| ?Stage two ?| ? Decreased GFR ? + --+ --+ ------+| ?30-59 ?| ?Stage three ?| ? Stage three ? + --+ --+ ------+| ?15-29 ?| ?Stage four ? | ? Stage four ?+ ---+ ---+ -------+| ?<15 (or dialysis) ? ?| ?Stage five ? | ? Stage five ?+ ---+ ---+ -------+ *Each stage assumes the associated GFR level has been in effect for at least three months. ?Stages 1 to 5, with or without kidney disease, indicate chronic kidney disease. Notes: Determination of stages one and two (with eGFR >59mL/min/1.73 m2) requires estimation of kidney damage for at least three months as defined by structural or functional abnormalities of the kidney, manifested by either:Pathological abnormalities or Markers of kidney damage (including abnormalities in the composition of the blood or urine or abnormalities in imaging tests). Lab Interpretation Abnormal (test code = 47634-0) [id number] 01:38:03 Test Item Value Reference Range Interpretation Comments LIPASE (test code = 8748720019) 195 U/L 0-220 Lab Interpretation (test code = Normal 66926-1) [facility] 01:20:00 Test Item Value Reference Range Interpretation Comments APTT Patient (test See_Comment [Automat ed code = 3173-2) message] The system which generated this result transmitted reference range : 23 - 38 Seconds . The reference range was not used to interpr et this result as normal/abnormal . YANIRA (test code = YANIRA) The [facility] patient population mean normal value for aPTT is 30 seconds. Lab Interpretation Normal (test code = 81204-2) [facility] / [id number] 01:17:58 Test Item Value Reference Range Interpretation Comments PROTIME PATIENT (test See_Comment [Auto mated message] code = 5964-2) The system [employer] generated this result transmitted ref erence range: 12.0 - 1 4.7 Seconds. The re ference range was not u sed to interpret this result as normal/abnor mal. INR (test code = 6301-6) Nor mal INR <1.1; Warfarin Therap eutic range 2.0 to 3. 0 or 2.5 to 3.5, dep ending upon the indica tions. Lab Interpretation (test Normal code = 50829-1) [facility] [id number] 01:10:57 Test Item Value Reference Range Interpretation Comments WBC (test code = See_Comment [Automated message] 6690-2) The system [employer] generated this result transmitted ref erence range: 4.30 - 1 1.10 10*3/?L. The re ference range was not u sed to interpret this result as normal/abnor mal. RBC (test code = See_Comment [Automated message] 019-8) The system [employer] generated this result transmitted ref erence range: 3.93 - 5 .25 10*6/?L. The re ference range was not u sed to interpret this result as normal/abnor mal. HGB (test code = 12.5 g/dL 11.6-15.0 718-7) HCT (test code = 38.1 % 35.7-45.2 4544-3) MCV (test code = 88.4 fL 80.6-95.5 787-2) MCH (test code = 29.0 pg 25.9-32.8 785-6) MCHC (test code = 32.8 g/dL 31.6-35.1 786-4) RDW-SD (test code 40.8 fL 39.0-49.9 = 72056-5) RDW-CV (test code 12.6 % 12.0-15.5 = 788-0) PLT (test code = See_Comment [Automated message] 777-3) The system whic h generated this result transmitted ref erence range: 166 - 35 8 10*3/?L. The re ference range was not u sed to interpret this result as normal/abnor mal. MPV (test code = 10.0 fL 9.5-12.9 05748-3) NRBC/100 WBC (test See_Comment [Automat ed message] code = 3333525837) The syste m which generated this result transmitted ref erence range: 0.0 - 10 .0 /100 WBCs. The refer ence range was not u sed to interpret this result as normal/abnor mal. NRBC x10^3 (test <0.01 See_Comment [Automated message] code = 3699292969) The syste m which generated this result transmitted ref erence range: 10*3/?L. The reference range was not used to interpr et this result as normal/abnormal . GRAN MAT (NEUT) % 53.6 % (test code = 770-8) IMM GRAN % (test 0.30 % code = 1121434427) LYMPH % (test code 35.7 % = 736-9) MONO % (test code 7.7 % = 5905-5) EOS % (test code = 2.4 % 713-8) BASO % (test code 0.3 % = 706-2) GRAN MAT 3.94 10*3/uL 1.88-7.09 x10^3(ANC) (test code = 0984906316) IMM GRAN x10^3 <0.03 0.00-0.06 (test code = 8368974982) LYMPH x10^3 (test 2.63 10*3/uL 1.32-3.29 code = 731-0) MONO x10^3 (test 0.57 10*3/uL 0.33-0.92 code = 742-7) EOS x10^3 (test 0.18 10*3/uL 0.03-0.39 code = 711-2) BASO x10^3 (test <0.03 0.01-0.07 code = 704-7) [facility] 22:06:00 Test Item Value Reference Range Interpretation Comments APPEARANCE (test code = Cloudy Clear A 4750014770) COLOR (test code = Yellow Yellow 5189223994) PH (test code = 4.8-8.0 3697888837) SP GRAVITY (test code = 1.003-1.030 4041481199) GLU U QUAL (test code = Normal Normal 9151831171) BLOOD (test code = Negative Negative INTERFERE NCE FROM 6243625578) ASCORBIC ACID M AY CAUSE FALSE NEG ATIVE RESULT KETONES (test code = Negative Negative 2912181459) PROTEIN (test code = 30 mg/dL Negative A 2887-8) UROBILIN (test code = 2.0 mg/dL Normal A 6620750354) BILIRUBIN (test code = Negative Negative 6322100837) NITRITE (test code = Negative Negative 8328745371) LEUK ANA (test code = 25/uL Negative A 2181126623) RBC/HPF (test code = <1 See_Comment [Autom ated message] 0469137774) The system [employer] generated this result transmitted ref erence range: 0 - 3 HP F. The reference range was not used to int erpret this result as normal/abnormal . WBC/HPF (test code = See_Comment H [Autom ated message] 6822272322) The system [employer] generated this result transmitted ref erence range: 0 - 5 HP F. The reference range was not used to int erpret this result as normal/abnormal . BACTERIA (test code = Many Negative A 2324554117) MUCOUS (test code = Slight Negative LPF A 6072644321) AMORPHOUS (test code = Few Rare HPF A 5036154207) SQ EPITH (test code = HPF 4718215562) CA OXALATE (test code = See_Comment H [Au tomated message] 4474544409) The system [facility] generated this result transmitted ref erence range: <=1 HPF. The reference range was not used to int erpret this result as normal/abnormal . Lab Interpretation Abnormal (test code = 93512-1) [facility]"
[2021-03-29] MEDS ORDERED: FUROSEMIDE 20 MG/ 2ML VIAL ONE (20:41)
[2021-03-29 21:10] LABS: Urine Blood 2+ (Negative); Urine Glucose Negative (Negative); Urine Protein Negative (Negative); Urine pH 6.5 (5.0-7.0)
[2021-03-29 21:20] LABS: Absolute Lymphocytes (CBC) 2.6 K/uL (0.7-4.9); Hematocrit 39.7 % (36.0-45.0); Lymphocytes % 33.1 % (15.3-44.8); MPV 8.2 fL (7.6-11.3); RBC Red Blood Cell Count 4.51 M/uL (3.86-4.86)
[2021-03-29 21:28] LABS: Protime INR 1.25
[2021-03-29 21:43] LABS: ALT/SGPT 34 U/L (12-78); AST/SGOT 22 U/L (15-37); Albumin 3.3 g/dL (3.4-5.0); Alkaline Phosphatase 112 U/L (45-117); BUN Blood Urea Nitrogen 14 mg/dL (7-18); Bicarbonate 27 mmol/L (21-32); Bilirubin Direct < 0.1 mg/dL (0-0.2); Bilirubin Total 0.3 mg/dL (0.2-1.0); Glucose Level 104 mg/dL (74-106); Magnesium 2.4 mg/dL (1.8-2.4); NT PRO-BNP < 5 pg/mL (<125); Potassium 3.8 mmol/L (3.5-5.1); Protein, Total 9.2 g/dL (6.4-8.2); Sodium Level 136 mmol/L (136-145); Troponin (Emerg Dept Use Only) < 0.02 ng/mL (0.0-0.045)
[2021-03-29] MEDS ORDERED: NA CHLORIDE 0.9% 1,000 ML ONE (21:44)
--- NOTE | 2021-03-29 21:57 | RAD REPORT ---
EXAM DESCRIPTION: RAD - Chest Single View - 03/29/2021 9:28 pm CLINICAL HISTORY: CHEST PAIN COMPARISON: No comparisonsChest Single View dated 09/03/2020; Chest Single View dated 09/26/2017; Chest Single View dated 09/23/2017; Chest Pa And Lat (2 Views) dated 09/22/2017 FINDINGS: Lines: None. Lungs: Low lung volumes with mild basilar opacities. Pleural: No significant pleural effusions or pneumothorax. Cardiac: The heart size is within normal limits. Bones: No acute fractures. Other: IMPRESSION: Low lung volumes and likely basilar atelectasis. No definite acute findings.
[2021-03-29 22:12] LABS: Barbiturates NEGATIVE (NEGATIVE); Benzodiazepines NEGATIVE (NEGATIVE); Cocaine NEGATIVE (NEGATIVE); METHAMPHETAM NEGATIVE (NEGATIVE); Methadone NEGATIVE (NEGATIVE); Opiates NEGATIVE (NEGATIVE); Phencyclidine NEGATIVE (NEGATIVE); THC Cannibis NEGATIVE (NEGATIVE)
[2021-03-29 22:26] LABS: SARS-COV-2 RT PCR POSITIVE (NEGATIVE)
--- NOTE | 2021-03-29 22:54 | EDPHYS ---
Physician Documentation [facility] Name: Roxana Sanchez Age: 46 yrs Sex: Female : 1975 Arrival Date: 03/29/2021 Time: 19:49 Bed 13 Private MD: ED Physician Arthur Rico HPI: 03/29 21:25 This 46 yrs old Black Female presents to ER via Ambulatory with complaints of mh7 Palpitations, Rapid Heart Rate. 21:26 The patient presents with a history of heart racing. Context: The symptoms occur at mh7 rest. Onset: The symptoms/episode began/occurred yesterday. Duration: The patient or guardian reports multiple episodes, that are intermittent, that wax and wane, with no pattern. Modifying factors: The symptoms are aggravated by lying down, The symptoms are alleviated by Sitting up. Associated signs and symptoms: Pertinent positives: anxiety, cough, fever, lightheadedness, Runny nose, congestion x3 days, Pertinent negatives: chest pain, nausea, SOB, syncope, near-syncope, unusual stressors, vertigo, vomiting. Severity of symptoms: At their worst the symptoms were moderate last night, in the emergency department the symptoms have improved moderately. 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 - Social history:: Smoking status: Patient denies any tobacco usage or history of. ROS: 21:26 Eyes: Negative for injury, pain, redness, and discharge, Neck: Negative for injury, mh7 pain, and swelling, Abdomen/GI: Negative for abdominal pain, nausea, vomiting, diarrhea, and constipation, Back: Negative for injury and pain, : Negative for injury, bleeding, discharge, and swelling, MS/Extremity: Negative for injury and deformity, Skin: Negative for injury, rash, and discoloration, Neuro: Negative for headache, weakness, numbness, tingling, and seizure, Allergy/Immunology: Negative for hives, rash, and allergies, Endocrine: Negative for neck swelling, polydipsia, polyuria, polyphagia, and marked weight changes, Hematologic/Lymphatic: Negative for swollen nodes, abnormal bleeding, and unusual bruising. Exam: 21:26 Constitutional: This is a well developed, well nourished patient who is awake, alert, mh7 and in no acute distress. Head/Face: Normocephalic, atraumatic. Eyes: Pupils equal round and reactive to light, extra-ocular motions intact. Lids and lashes normal. Conjunctiva and sclera are non-icteric and not injected. Cornea within normal limits. Periorbital areas with no swelling, redness, or edema. Neck: Trachea midline, no thyromegaly or masses palpated, and no cervical lymphadenopathy. Supple, full range of motion without nuchal rigidity, or vertebral point tenderness. No Meningismus. Chest/axilla: Normal chest wall appearance and motion. Nontender with no deformity. No lesions are appreciated. Cardiovascular: Regular rate and rhythm with a normal S1 and S2. No gallops, murmurs, or rubs. Normal PMI, no JVD. No pulse deficits. Respiratory: Lungs have equal breath sounds bilaterally, clear to auscultation and percussion. No rales, rhonchi or wheezes noted. No increased work of breathing, no retractions or nasal flaring. Abdomen/GI: Soft, non-tender, with normal bowel sounds. No distension or tympany. No guarding or rebound. No evidence of tenderness throughout. Back: No spinal tenderness. No costovertebral tenderness. Full range of motion. Skin: Warm, dry with normal turgor. Normal color with no rashes, no lesions, and no evidence of cellulitis. MS/ Extremity: Pulses equal, no cyanosis. Neurovascular intact. Full, normal range of motion. Neuro: Awake and alert, GCS 15, oriented to person, place, time, and situation. Cranial nerves II-XII grossly intact. Motor strength 5/5 in all extremities. Sensory grossly intact. Cerebellar exam normal. Normal gait. Psych: Awake, alert, with orientation to person, place and time. Behavior, mood, and affect are within normal limits. Vital Signs: 19:56 BP 141 / 91; Pulse 101; Resp 18; Temp 99.4; Pulse Ox 100% on R/A; Weight 90.72 kg; tw5 Height 5 ft. 4 in. (162.56 cm); Pain 0/10; 21:49 BP 124 / 73; Pulse 79; Resp 18; Pulse Ox 99% on R/A; ic1 23:05 BP 130 / 86; Pulse 85; Resp 18; Pulse Ox 100% on R/A; ic1 19:56 Body Mass Index 34.33 (90.72 kg, 162.56 cm) tw5 MDM: 22:52 Differential diagnosis: arrythmia, dehydration, stress disorder. Data reviewed: [facility] system signs, nurses notes, lab test result(s), cardiac enzymes, CBC, electrolytes, Flu: negative urine drug screen, Covid positive, EKG, radiologic studies, plain films. Data interpreted: Pulse oximetry: on room air is 99 %. Interpretation: normal. Counseling: I had a detailed discussion with the patient and/or guardian regarding: the historical points, exam findings, and any diagnostic results supporting the discharge/admit diagnosis, lab results, radiology results, the need for outpatient follow up, to return to the emergency department if symptoms worsen or persist or if there are any questions or concerns that arise at home. Response to treatment: the patient's symptoms have resolved after treatment, the patient's blood pressure is in an acceptable range, mental status has returned to baseline, the patient no longer shows bradycardia, the patient is not short of breath, the patient is not tachycardic, the patient's pain is gone, the patient's temperature has normalized, the patient is now symptom free, patient is well hydrated. 22:53 Patient medically screened. health system 03/29 20:53 Order name: Basic Metabolic Panel [facility] 03/29 20:53 Order name: CBC with Diff [facility] 03/29 20:53 Order name: LFT's [facility] 03/29 20:53 Order name: Magnesium [facility] 03/29 20:53 Order name: NT PRO-BNP [facility] 03/29 20:53 Order name: PT-INR; Complete Time: 22:45 [facility] 03/29 20:53 Order name: Troponin (emerg Dept Use Only) [facility] 03/29 20:54 Order name: Basic Metabolic Panel; Complete Time: 21:47 [facility] 03/29 20:54 Order name: CBC with Automated Diff; Complete Time: 21:47 [facility] 03/29 20:54 Order name: Liver (Hepatic) Function; Complete Time: 21:47 [facility] 03/29 20:54 Order name: Magnesium; Complete Time: 21:47 [facility] 03/29 20:54 Order name: NT PRO-BNP; Complete Time: 21:47 [facility] 03/29 20:54 Order name: Troponin (Emerg Dept Use Only); Complete Time: 21:47 [facility] 03/29 21:10 Order name: Urine Dipstick-Ancillary; Complete Time: 21:14 [facility] 03/29 20:08 Order name: EKG - Nurse/Tech; Complete Time: 20:08 5 03/29 20:08 Order name: EKG; Complete Time: 20:08 [facility] 03/29 20:53 Order name: XRAY Chest (1 view); Complete Time: 22:21 [facility] 03/29 20:53 Order name: Cardiac monitoring; Complete Time: 22:47 [facility] 03/29 20:53 Order name: IV Saline Lock; Complete Time: 21:28 [facility] 03/29 20:53 Order name: Labs collected and sent; Complete Time: 21:28 [facility] 03/29 20:53 Order name: O2 Per Protocol; Complete Time: 21:28 [facility] 03/29 20:53 Order name: O2 Sat Monitoring; Complete Time: 21:28 [facility] 03/29 21:22 Order name: TSH; Complete Time: 22:45 health system 03/29 21:22 Order name: COVID-19/FLU A+B (Document "Date of Onset" if Symptomatic); Complete Time: health system :45 03/29 21:22 Order name: Urine Dipstick-Ancillary (obtain specimen); Complete Time: 21:26 health system 03/29 21:22 Order name: UDS; Complete Time: 22:21 health system 03/29 21:22 Order name: ETOH Level; Complete Time: 22:21 health system 03/29 22:15 Order name: D-Dimer; Complete Time: 22:45 EDMS Administered Medications: 21:45 Drug: NS 0.9% 1000 ml Route: IV; Rate: 1000 ml; Site: right antecubital; ic1 Disposition Summary: 03/29/21 22:53 Discharge Ordered Location: Home health system Problem: new health system Symptoms: have improved health system Condition: Stable health system Diagnosis - Coronavirus infection, unspecified health system - Palpitations health system Followup: health system - With: Private Physician - When: 1 - 2 days - Reason: Worsening of condition, Recheck today's complaints, Continuance of care, Re-evaluation by your physician Discharge Instructions: - Discharge Summary Sheet health system - COVID-19 health system - COVID-19 Frequently Asked Questions health system - 10 Things You Can Do to Manage Your COVID-19 Symptoms at Home - [place] [id number] - COVID-19: Quarantine vs. Isolation - [place] [id number] Forms: - Medication Reconciliation Form health system - Thank You Letter health system - Antibiotic Education health system - Prescription Opioid Use health system Prescriptions: - albuterol sulfate 90 mcg/actuation Inhalation HFA aerosol inhaler - inhale 2 puff by INHALATION route every 6 hours As needed; 1 Inhaler; Refills: health system 0, Product Selection Permitted - Tessalon Perles 100 mg Oral Capsule - take 1 capsule by ORAL route every 8 hours As needed; 15 capsule; Refills: 0, health system Product Selection Permitted - Zithromax Z-Onel 250 mg Oral Tablet - take 1 tablet by ORAL route as directed for 5 days Day 1 - take two (2) tablets health system one time. Day 2, 3, 4 , 5 take one (1) tablet once daily.; 6 tablet; Refills: 0, Product Selection Permitted Signatures: Dispatcher [employer] EDJose A Lambert PA PA jmm Holmes, Maurice, MD MD 7 Luh England 5 Peyton Humphreys RN RN ic1 Corrections: (The following items were deleted from the chart) 22:15 21:49 D-DIMER+[id number] ordered. EDAZ EDMS
--- NOTE | 2021-03-29 22:54 | ER ---
Nurse's Notes [facility] Name: Roxana Sanchez Age: 46 yrs Sex: Female : 1975 Arrival Date: 03/29/2021 Time: 19:49 Bed 13 Private MD: Diagnosis: Coronavirus infection, unspecified;Palpitations Presentation: 03/29 19:59 Chief complaint: Patient states: "I have been symptoms like stuffy nose and fever since tw5 Sunday, and a little diarrhea. The rapid heart rate started last night, and I was feeling like I was drunk. The rapid heart rate just scared me.". Coronavirus screen: Vaccine status: Patient reports being unvaccinated. Ebola Screen: Patient negative for fever greater than or equal to 101.5 degrees Fahrenheit, and additional compatible Ebola Virus Disease symptoms Patient denies exposure to infectious person. Patient denies travel to an Ebola-affected area in the 21 days before illness onset. Initial Sepsis Screen: Does the patient meet any 2 criteria? HR > 90 bpm. Does the patient have a suspected source of infection? No. Patient's initial sepsis screen is negative. Risk Assessment: Do you want to hurt yourself or someone else? Patient reports no desire to harm self or others. Onset of symptoms was March 26, 2021. 19:59 Method Of Arrival: Ambulatory tw5 19:59 Acuity: DELMI 3 tw5 Triage Assessment: 20:02 General: Appears in no apparent distress. Behavior is calm, cooperative, appropriate tw5 for age. Pain: Denies pain. 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 - Social history:: Smoking status: Patient denies any tobacco usage or history of. Screenin:03 Abuse screen: Denies threats or abuse. Denies injuries from another. Nutritional tw5 screening: No deficits noted. Tuberculosis screening: No symptoms or risk factors identified. Fall Risk None identified. Assessment: 21:45 Reassessment: Patient appears in no apparent distress at this time. General: Appears in ic1 no apparent distress. Behavior is calm, cooperative, Smells of Reports funny feeling in her chest. Pt states she thinks she may be having palpitations. Denies fever, chills. Pain: Denies pain. Neuro: No deficits noted. Level of Consciousness is awake, alert, Oriented to person, place, time, situation. Cardiovascular: Reports palpitations, Denies chest pain, fatigue, lightheadedness, Heart tones S1 S2 present Capillary refill < 3 seconds Pulses are palpable in left radial artery. Respiratory: No deficits noted. GI: No deficits noted. : No deficits noted. EENT: No deficits noted. Derm: No deficits noted. Musculoskeletal: No deficits noted. Vital Signs: 19:56 BP 141 / 91; Pulse 101; Resp 18; Temp 99.4; Pulse Ox 100% on R/A; Weight 90.72 kg; tw5 Height 5 ft. 4 in. (162.56 cm); Pain 0/10; 21:49 BP 124 / 73; Pulse 79; Resp 18; Pulse Ox 99% on R/A; ic1 23:05 BP 130 / 86; Pulse 85; Resp 18; Pulse Ox 100% on R/A; ic1 19:56 Body Mass Index 34.33 (90.72 kg, 162.56 cm) tw5 Vitals: 21:45 Cardiac Rhythm Assessment Regular Sinus rhythm. ic1 ED Course: 19:49 Patient arrived in ED. ag3 20:02 Triage completed. tw5 20:02 Arm band placed on right wrist. tw5 20:03 Patient has correct armband on for positive identification. tw5 21:12 Arthur Rico MD is Attending Physician. [facility] 21:15 Inserted saline lock: 20 gauge in right antecubital area, using aseptic technique. ds4 Blood collected. 21:28 XRAY Chest (1 view) In Process Unspecified. EDMS 21:41 COVID-19/FLU A+B (Document "Date of Onset" if Symptomatic) Sent. ic1 22:23 D-Dimer Sent. ic1 Administered Medications: 21:45 Drug: NS 0.9% 1000 ml Route: IV; Rate: 1000 ml; Site: right antecubital; ic1 Outcome: 22:53 Discharge ordered by . roberta 23:06 Discharged to home ambulatory, with family. ic1 23:06 Condition: stable 23:06 Discharge instructions given to patient, Instructed on discharge instructions, follow up and referral plans. Demonstrated understanding of instructions, follow-up care, medications, Prescriptions given X 2, 3. 23:07 Patient left the ED. ic1 Signatures: Dispatcher [employer] EDMS Camilo Joel ds4 Gay Olivas ag3 Arthur Rico MD MD 7 Luh England 5 Peyton Humphreys, RN RN ic1
[2021-03-30 00:36] VITALS: TEMP 99.4
[2021-03-30 00:39] VITALS: BP 130/86; O2SAT 100
--- NOTE | 2021-03-30 11:23 | EKG ---
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
== END 2021-03-29 23:07 | disposition home or self-care (01) ==
LOC: ER 19:48
DX: U07.1 COVID-19 (principal); Z88.5 Allergy status to narcotic agent
CPT/HCPCS: 0240U; 36415; 71045; 80048; 80076; 80307; 80320; 81003; 83735; 83880; 84443; 84484; 85025; 85379; 85610; 93005; 99284; J1940; J7030

== ENCOUNTER 2021-04-06 03:10 | Emergency (ER) | payer SELFPAY ==
--- OUTSIDE RECORDS SUMMARY | 2021-04-06 03:14 | XMS REPORT | Continuity of Care Document ---
:1975 Author Organization [facility] t Address [address] [place] [address] Care Team Providers Name Role Phone SYDNEY Mercado [facility] Primary Care Physic ashley Unavailable Diana FRITZ Attending Clinician Unavailable Suzette LEAF CONDITIONER HELPER, G Attending Clinician Philippe SCHAFER S Attending Clinician Jayden COLLINS Attending Clinician Unavailable Jocelyn SHARMA R Attending Clinician Brandy OCAMPO Attending Clinician Unavailable Ranjit RAY Attending Clinician RANJIT Attending Clinician Unavailable Payers Payer Name Policy Type Policy Number Effective Date Expiration Date S ource [place] [place] [id number] 2018 00:00:00 WOMEN Problems Condition Condition Condition Status Onset Resolution Last Treating Co mments Source Name Details Category Date Date Treatment Clinician Date No known No known Disease Unive rs active active ity of problems problems [facility] Allergies, Adverse Reactions, Alerts Allergy Allergy Status Severity Reaction(s) Onset Inactive Treating Comm ents Source Name Type Date Date Clinician HYDROCOD DRUG Active Hallucinates Un kiara ONE INGREDI 4-20 ity of 00:00: [address] Hydrocod Propensi Active Shortness of Univers one ty to Breath 4-20 ity of adverse 00:00: [place] reaction 00 Medical s Branch Social History Social Habit Start Date Stop Date Quantity Comments Source Exposure to Not sure University SARS-CoV-2 [place] [facility] (event) Branch Alcohol intake 2021-04-03 2021-04-03 Current University of 00:00:00 00:00:00 non-drinker of [facility] alcohol Branch (finding) Tobacco use and 2017-07-13 2017-07-13 Never used Universit y of exposure 00:00:00 00:00:00 [facility] Sex Ass[birth year] At [birth year] Universit y of 00:00:00 00:00:00 [facility] Smoking Status Start Date Stop Date Source Never smoker [facility] [place] Medications Ordered Filled Start Stop Current Ordering Indication Dosage Frequency Signature Comments Components Source Medication Medication Date Date Medication? Clinician (SIG) Name Name NaCl 0.9% Yes 1000mL at 999 Univ ers (NS) IV 6-19 mL/hr, ity of infusion 03:15: Intravenou Eddie as 1,000 mL 00 s, Medical CONTINUOUS Branch , Starting 09/10/20 at 2215, Until Discontinu ed, Routine naproxen Yes [id number] 550mg Take 1 U nivers sodium 550 6-18 tablet by ity of mg tablet 00:00: mouth 2 (two) Medical times Branch daily with meals. naproxen Yes [id number] 550mg Take 1 U nivers sodium 550 6-18 tablet by ity of mg tablet 00:00: mouth 2 (two) Medical times Branch daily with meals. acetaminoph 2020- No 650mg 650 mg, U nivers en -12 25-10 Oral, ity of (TYLENOL) 22:45: 21:36 ONCE, 1 [place] tablet 650 [place] :00 dose, Wed Medi liz mg 05/05/20 at Branch 1645, MESSI cephALEXin 2020- No [id number] 500mg Take 1 Univers 500 mg 05-05-18 capsule by ity of capsule 00:00: 05:59 mouth 4 [place] 00 :00 (four) Medical times Branch daily for 7 days. docusate 2018-0 Yes 250mg Take 1 Univer [...] by ity of capsule 00:00: mouth 3 00 (three) Medical times Branch daily. ibuprofen [...] by ity of capsule 00:00: mouth 3 00 (three) Medical times Branch daily. ibuprofen [...] Univ ers mg tablet 4-20 tablet by itlesly guzmán f 00:00: mouth [place] 00 every 6 Medical (six) Branch hours as needed for Pain (scale 4-6). Vital Signs Vital Name Observation Time Observation Value Comments Source Systolic blood 2021-04-03 07:03:00 149 mm[Hg] Univer sity of [facility] Diastolic blood 2021-04-03 07:03:00 97 mm[Hg] Unive rsity of [facility] Heart rate 2021-04-03 07:03:00 82 /min Universi ty [facility] Body temperature 2021-04-03 07:03:00 37.11 Kristy [facility] Res[facility] rate 2021-04-03 07:03:00 18 /min Univ ersity [facility] Body height 2021-04-03 07:03:00 162.6 cm Universi ty [facility] Body weight 2021-04-03 07:03:00 90.719 kg Universi ty [facility] [place] BMI 2021-04-03 07:03:00 34.33 kg/m2 Universi ty [facility] Oxygen saturation in 2021-04-03 07:03:00 98 /min University of Arterial blood by [facility] Pulse oximetry Branch Systolic blood 2020-09-11 04:00:00 135 mm[Hg] Univer sity of [facility] Diastolic blood 2020-09-11 04:00:00 70 mm[Hg] Unive rsity of [facility] Heart rate 2020-09-11 04:00:00 61 /min Universi ty of [facility] Respiratory rate 2020-09-11 04:00:00 12 /min [facility] in 2020-09-11 04:00:00 99 /min University of Arterial blood by [facility] Pulse oximetry Branch Body temperature 2020-09-11 00:50:00 37.06 Kristy Univ ersity [facility] Body height 2020-09-11 00:50:00 165.1 cm Universi ty of [place] [facility] [place] Body weight 2020-09-11 00:50:00 86.183 kg Universi ty [facility] [place] [facility] [place] BMI 2020-09-11 00:50:00 31.62 kg/m2 Universi ty of [place] [facility] Heart rate 2020-05-05 22:41:00 92 /min Universi ty of [place] [facility] Systolic blood 2020-05-05 21:09:00 109 mm[Hg] Univer sity of pressure [place] [facility] Diastolic blood 2020-05-05 21:09:00 77 mm[Hg] Unive rsity of pressure [place] [facility] Body temperature 2020-05-05 21:09:00 37.89 Kristy Univ ersity of [place] [facility] Respiratory rate 2020-05-05 21:09:00 18 /min Univ ersity of [place] [facility] Body weight 2020-05-05 21:09:00 86.183 kg Universi ty [facility] [place] [facility] BMI 2020-05-05 21:09:00 32.61 kg/m2 Universi ty of [place] [facility] Oxygen saturation in 2020-05-05 21:09:00 100 /min University of Arterial blood by [place] [employer] Pulse oximetry Branch Heart rate 2020-05-05 22:41:00 92 /min Universi ty of [place] [facility] Systolic blood 2020-05-05 21:09:00 109 mm[Hg] Univer sity of [facility] [place] [facility] Diastolic blood 2020-05-05 21:09:00 77 mm[Hg] Unive rsity of [facility] [place] [facility] Body temperature 2020-05-05 21:09:00 37.89 Kristy Univ ersity of [place] [facility] Respiratory rate 2020-05-05 21:09:00 18 /min Univ ersity of [place] [facility] Body weight 2020-05-05 21:09:00 86.183 kg Universi ty [facility] [place] [facility] BMI 2020-05-05 21:09:00 32.61 kg/m2 Universi ty [facility] [place] [facility] Oxygen saturation in 2020-05-05 21:09:00 100 /min University of Arterial blood by [employer]iz Pulse oximetry Branch Systolic blood 2019-10-04 23:45:19 136 mm[Hg] Univer sity of [facility] [place] [facility] Diastolic blood 2019-10-04 23:45:19 87 mm[Hg] Unive rsity of [facility] [place] [facility] Heart rate 2019-10-04 23:45:19 69 /min Universi ty of [place] [facility] Respiratory rate 2019-10-04 23:45:19 16 /min [facility] ersity of [facility] Branch Oxygen saturation in 2019-10-04 23:45:19 100 /min University of Arterial blood by [facility] Pulse oximetry Branch Body temperature 2019-10-04 21:25:00 36.61 Kristy [facility] ersity of [place] [facility] [place] Body height 2019-10-04 21:25:00 162.6 cm Universi ty [facility] [place] [facility] [place] Body weight 2019-10-04 21:25:00 88.905 kg Universi ty [facility] [place] [facility] BMI 2019-10-04 21:25:00 33.64 kg/m2 Universi ty [facility] [place] [facility] Systolic blood 2019-10-04 23:45:19 136 mm[Hg] Univer sity of [facility] [place] [facility] Diastolic blood 2019-10-04 23:45:19 87 mm[Hg] Unive rsity of pressure [facility] Heart rate 2019-10-04 23:45:19 69 /min Universi ty [facility] [place] [facility] [place] Respiratory rate 2019-10-04 23:45:19 16 /min [facility] Oxygen saturation in 2019-10-04 23:45:19 100 /min University of Arterial blood by [facility] Pulse oximetry Branch Body temperature 2019-10-04 21:25:00 36.61 Kristy [facility] ersity of [facility] Body height 2019-10-04 21:25:00 162.6 cm Universi ty [facility] [place] [facility] Body weight 2019-10-04 21:25:00 88.905 kg Universi ty of [facility] BMI 2019-10-04 21:25:00 33.64 kg/m2 Universi ty of [facility] Procedures Procedure Date / Time Performing Clinician Source Performed XR ABDOMEN ACUTE SERIES 2021-04-03 07:31:57 Diana Fritz [facility] URINALYSIS 2021-04-03 07:10:00 Diana Fritz [facility] COVID-19 (ID NOW RAPID 2021-04-03 07:10:00 Diana Fritz [facility] TESTING) Medical Branch NOTICE OF PRIVACY 2021-04-03 06:51:09 Doctor Unassigned, No [facility] PRACTICES Name Medical Branch CONSENT/REFUSAL FOR 2021-04-03 06:49:41 Doctor Unassigned, No [facility] [place] DIAGNOSIS AND TREATMENT Name Medical Branch EKG-12 LEAD 2020-09-11 03:54:05 Ingrid Collins [facility] XR CHEST 1 VW 2020-09-11 01:03:05 Ingrid Collins [facility] CBC WITH DIFF 2020-09-11 00:55:00 Ingrid Collins [facility] PROTHROMBIN TIME / INR 2020-09-11 00:55:00 Ingrid Collins [facility] ACTIVATED PARTIAL 2020-09-11 00:55:00 Ingrid Collins [facility] THRMPLAS MELISSA [facility] Branch LIPASE 2020-09-11 00:55:00 Ingrid Collins [facility] TROPONIN I 2020-09-11 00:55:00 Ingrid Collins [facility] COMP. METABOLIC PANEL 2020-09-11 00:55:00 Ingrid Collins [facility] ([id number]) [facility] CONSENT/REFUSAL FOR 2020-09-11 00:37:21 Doctor Unassigned, No [facility] [place] DIAGNOSIS AND TREATMENT Name [facility] Branch URINALYSIS 2020-05-05 21:33:00 Marisol Ocampo [facility] NOTICE OF PRIVACY 2020-05-05 21:03:49 Doctor Unassigned, No [facility] Medical Branch CONSENT/REFUSAL FOR 2020-05-05 21:02:41 Doctor Unassigned, No Un [facility] [place] DIAGNOSIS AND TREATMENT Name [facility] XR FOOT 3+ VW LEFT 2019-10-04 22:26:37 [employer] [facility] NOTICE OF PRIVACY 2019-10-04 21:14:42 Doctor Unassigned, No [facility] [place] Encounters Start End Encounter Admission Attending Care Care Encounter Source Date/Time Date/Time Type Type Clinicians Facility Department ID 2021-04-03 2021-04-03 Emergency X SUZETTE [facility] ERT [id number] Univers 01:07:00 01:54:00 DIANA gallego [facility] 2021-04-03 2021-04-03 Emergency [facility] [id number] Univers 01:07:00 01:54:00 Diana Ortiz [place] [id number] ity of [place] 4.2.7.2.686 [facility] [id number] [address] 2020-09-10 2020-09-10 Emergency [facility] [id number] Univers 19:42:00 23:08:00 Ingrid Carpenter [place] [id number] ity of [place] 4.2.7.2.686 [facility] [id number] [address] 2020-09-10 2020-09-10 Emergency [facility] [id number] Univers 19:42:00 19:42:00 INGRID itlesly [facility] 2020-05-05 2020-05-05 Emergency [facility] [id number] 15:10:00 16:55:00 Marisol R [place] [id number] [place] [address] [place] [address] [id number] [facility] 2020-05-05 2020-05-05 [facility] [id number] Univers 15:10:00 16:55:00 Marisol R [place] [id number] i ty of [place] 4.2.7.2.686 [facility] [id number] [address] 2020-05-05 2020-05-05 Emergency X [facility] ERT [id number] Univers 15:03:00 15:03:00 MARISOL ity [facility] 2019-10-04 2019-10-04 Emergency [facility] [id number] 16:26:50 19:58:00 Shinta [place] [id number] [place] 4.2.7.2.686 [place] [id number] 082019-10-04 2019-10-04 Emergency [facility] [id number] [facility] 16:26:50 19:58:00 [place] [id number] i [facility] 4.2.7.2.686 [facility] [id number] [address] 2019-10-04 2019-10-04 Emergency X RANJIT [facility] ERT [id number] [facility] 16:26:50 16:26:50 ELBERTSYED gallego [facility] 2017-11-16 2017-11-16 Emergency E [facility]BL MHBL [id number] MHBL 21:34:00 21:34:00 2017-10-05 2017-10-05 Emergency [facility] [id number] [place] 12:20:00 12:20:00 Health 2017-07-14 2017-07-14 Emergency [facility] [id number] [place] 08:07:11 08:07:11 Health 2017-07-14 2017-07-14 Outpatient [facility] [id number] [place] 05:07:03 05:07:03 Health Results Test Description Test Time Test Comments Results Result Comments Source TROPONIN I 2020-09-11 01:38:03 Test Item Value Reference Range Interpretation Comme nts TROPONIN I (test code = 0.002 ng/mL See_Comment [Au tomated message] The 6537824816) system which ge nerated this result tra nsmitted reference range : <=0.034. The reference r nilam was not used to int erpret this result as normal/abnormal . YANRIA (test code = YANIRA) Equal or Less [...] ? Lab Interpretation (test Normal code = 66568-3) [facility] (68166[facility]2020-09-11 01:38:03 Test Item Value Reference Range Interpretation Comments NA (test code = 141 mmol/L 135-145 1377702117) K (test code = 3.9 mmol/L 3.5-5.0 1442864836) CL (test code = 103 mmol/L 98-108 4562930186) CO2 TOTAL (test code = 27 mmol/L 23-31 7922895590) AGAP (test code = 2-16 8749571411) BUN (test code = 13 mg/dL 7-23 6169563576) GLUCOSE (test code = 131 mg/dL 70-110 H 9989312547) CREATININE (test code = 0.76 mg/dL 0.50-1.04 6989500716) TOTAL BILI (test code = 0.4 mg/dL 0.1-1.2 8193252520) CALCIUM (test code = 11.4 mg/dL 8.6-10.6 H 5527996379) T PROTEIN (test code = 9.5 g/dL 6.3-8.2 H 5384077783) ALBUMIN (test code = 4.6 g/dL 3.5-5.0 5691539223) ALK PHOS (test code = 108 U/L 34-122 7382823532) ALTv (test code = 26 U/L 5-35 1742-6) AST(SGOT) (test code = 33 U/L 13-40 9527374399) eGFR (test code = mL/min/1.73m2 3119276243) YANIRA (test code = YANIRA) Association of [...] tests). Lab Interpretation Abnormal (test code = 88039-4) [facility], [id number] 01:38:03 Test Item Value Reference Range Interpretation Comments LIPASE (test code = 0274323517) 195 U/L 0-220 Lab Interpretation (test code = Normal 18603-8) [place] [facility]21-[facility]-19 01:20:00 Test Item Value Reference Range Interpretation Comments APTT Patient (test See_Comment [Automat ed code = 3173-2) message] The system which generated this result transmitted reference range : 23 - 38 Seconds . The reference range was not used to interpr et this result as normal/abnormal . YANIRA (test code = YANIRA) The [facility] patient population mean normal value for aPTT is 30 seconds. Lab Interpretation Normal (test code = 02285-2) [place] [facility] / [id number] 01:17:58 Test Item Value Reference Range Interpretation Comments PROTIME PATIENT (test See_Comment [Auto mated message] code = 5964-2) The system wh ich generated this result transmitted ref erence range: 12.0 - 1 4.7 Seconds. The re ference range was not u sed to interpret this result as normal/abnor mal. INR (test code = 6301-6) Nor mal INR <1.1; Warfarin Therap eutic range 2.0 to 3. 0 or 2.5 to 3.5, dep ending upon the indica tions. Lab Interpretation (test Normal code = 53741-4) [facility] WITH [id number] 01:10:57 Test Item Value Reference Range Interpretation Comments WBC (test code = See_Comment [Automated message] 2590-2) The system [employer] generated this result transmitted ref erence range: 4.30 - 1 1.10 10*3/?L. The re ference range was not u sed to interpret this result as normal/abnor mal. RBC (test code = See_Comment [Automated message] 839-8) The system [employer] generated this result transmitted ref erence range: [...] RDW-SD (test code 40.8 fL 39.0-49.9 = 45438-1) RDW-CV (test code 12.6 % 12.0-15.5 = 788-0) PLT (test code = See_Comment [Automated message] 197-3) The system [employer] generated this result transmitted ref erence range: 166 - 35 8 10*3/?L. The re ference range was not u sed to interpret this result as normal/abnor mal. MPV (test code = 10.0 fL 9.5-12.9 06239-1) NRBC/100 WBC (test See_Comment [Automat ed message] code = 8181317058) The [employer] which generated this result transmitted ref erence range: 0.0 - 10 .0 /100 WBCs. The refer ence range was not u sed to interpret this result as normal/abnor mal. NRBC x10^3 (test <0.01 See_Comment [Automated message] code = 4969354810) The syste m which generated this result transmitted ref erence range: 10*3/?L. The reference range was not used to interpr et this result as normal/abnormal . GRAN MAT (NEUT) % 53.6 % (test code = 770-8) IMM GRAN % (test 0.30 % code = 3121552978) LYMPH % (test code 35.7 % = 736-9) MONO % (test code 7.7 % = 5905-5) EOS % (test code = 2.4 % 713-8) BASO % (test code 0.3 % = 706-2) GRAN MAT 3.94 10*3/uL 1.88-7.09 x10^3(ANC) (test code = 5775371595) IMM GRAN x10^3 <0.03 0.00-0.06 (test code = 1076183136) LYMPH x10^3 (test 2.63 10*3/uL 1.32-3.29 code = 731-0) MONO x10^3 (test 0.57 10*3/uL 0.33-0.92 code = 742-7) EOS x10^3 (test 0.18 10*3/uL 0.03-0.39 code = 711-2) BASO x10^3 (test <0.03 0.01-0.07 code = 704-7) [facility]:00 Test Item Value Reference Range Interpretation Comments APPEARANCE (test code = Cloudy Clear A 5647278878) COLOR (test code = Yellow Yellow 8514915198) PH (test code = 4.8-8.0 1477171679) SP GRAVITY (test code = 1.003-1.030 7003384532) GLU U QUAL (test code = Normal Normal 4353626696) BLOOD (test code = Negative Negative INTERFERE NCE FROM 5667928284) ASCORBIC ACID M AY CAUSE FALSE NEG ATIVE RESULT KETONES (test code = Negative Negative 4296479572) PROTEIN (test code = 30 mg/dL Negative A 2887-8) UROBILIN (test code = 2.0 mg/dL Normal A 7567189862) BILIRUBIN (test code = Negative Negative 6997032254) NITRITE (test code = Negative Negative 9603767951) LEUK ANA (test code = 25/uL Negative A 5527532367) RBC/HPF (test code = <1 See_Comment [Autom ated message] 1171963510) The system [employer] generated this result transmitted ref erence range: 0 - 3 HP F. The reference range was not used to int erpret this result as normal/abnormal . WBC/HPF (test code = See_Comment H [Autom ated message] 9823691078) The system [employer] generated this result transmitted ref erence range: 0 - 5 HP F. The reference range was not used to int erpret this result as normal/abnormal . BACTERIA (test code = Many Negative A 9827444690) MUCOUS (test code = Slight Negative LPF A 4588011988) AMORPHOUS (test code = Few Rare HPF A 8497429102) SQ EPITH (test code = HPF 9868957292) CA OXALATE (test code = See_Comment H [Au tomated message] 7704587176) The system [employer] generated this result transmitted ref erence range: <=1 HPF. The reference range was not used to int erpret this result as normal/abnormal . Lab Interpretation Abnormal (test code = 37704-5) [facility]"
--- NOTE | 2021-04-06 04:00 | EDPHYS ---
Physician Documentation [facility] Name: Roxana Sanchez Age: 46 yrs Sex: Female : 1975 Arrival Date: 04/06/2021 Time: 03:14 Bed 4 Private MD: ED Physician Laura Rodriguez HPI: 04/06 03:54 This 46 yrs old Black Female presents to ER via EMS with complaints of Cough. sp3 03:54 46-year-old female with no significant past medical history diagnosed with COVID-19 sp3 this past week now presents with continued cough and mild chest pain now resolved. Patient states that she had a "fleeting episode in her chest" and also some mild nausea and diarrhea. Symptoms are mild patient has not had a fever. Patient denies shortness of breath, back pain, vomiting, rash, left arm pain, prior cardiac history, any other ROS at this time.. 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 Flu vaccine is not up to date. Patient has never been vaccinated. - Social history:: Smoking status: Patient denies any tobacco usage or history of. - Code Status:: Full code. - Coronavirus screen:: The patient has NOT traveled to [place] in the past 14 days. Proceed with normal triage process as indicated. ROS: 03:55 Constitutional: Negative for fever, chills, and weight loss, Eyes: Negative for injury, sp3 pain, redness, and discharge, ENT: Negative for injury, pain, and discharge, Neck: Negative for injury, pain, and swelling, Back: Negative for injury and pain, Skin: Negative for injury, rash, and discoloration, Neuro: Negative for headache, weakness, numbness, tingling, and seizure. 03:55 All other systems are negative. Exam: 03:55 Constitutional: This is a well developed, well nourished patient who is awake, alert, sp3 and in no acute distress. Head/Face: Normocephalic, atraumatic. Eyes: Pupils equal round and reactive to light, extra-ocular motions intact. Lids and lashes normal. Conjunctiva and sclera are non-icteric and not injected. Cornea within normal limits. Periorbital areas with no swelling, redness, or edema. ENT: Nares patent. No nasal discharge, no septal abnormalities noted. External auditory canals are clear. Oropharynx with no redness, swelling, or masses, exudates, or evidence of obstruction, uvula midline. Mucous membranes moist. Neck: Trachea midline, no thyromegaly or masses palpated, and no cervical lymphadenopathy. Supple, full range of motion without nuchal rigidity, or vertebral point tenderness. No Meningismus. Chest/axilla: Normal chest wall appearance and motion. Nontender with no deformity. No lesions are appreciated. Cardiovascular: Regular rate and rhythm with a normal S1 and S2. No gallops, murmurs, or rubs. Normal PMI, no JVD. No pulse deficits. Respiratory: Lungs have equal breath sounds bilaterally, clear to auscultation and percussion. No rales, rhonchi or wheezes noted. No increased work of breathing, no retractions or nasal flaring. Abdomen/GI: Soft, non-tender, with normal bowel sounds. No distension or tympany. No guarding or rebound. No evidence of tenderness throughout. Back: No spinal tenderness. No costovertebral tenderness. Full range of motion. Skin: Warm, dry with normal turgor. Normal color with no rashes, no lesions, and no evidence of cellulitis. MS/ Extremity: Pulses equal, no cyanosis. Neurovascular intact. Full, normal range of motion. Neuro: Awake and alert, GCS 15, oriented to person, place, time, and situation. Cranial nerves II-XII grossly intact. Motor strength 5/5 in all extremities. Sensory grossly intact. Cerebellar exam normal. Normal gait. Psych: Awake, alert, with orientation to person, place and time. Behavior, mood, and affect are within normal limits. 03:58 ECG was reviewed by the Attending Physician. EKG demonstrates normal sinus rhythm at 67 sp3 bpm with normal intervals, normal QRS, normal axis, nonspecific diffuse ST/T changes including S waves laterally without evidence of acute ischemia. Patient is resting comfortably in no acute distress. Vital Signs: 03:30 BP 128 / 91; Pulse 69; Resp 16; Pulse Ox 100% ; Weight 90.72 kg; Height 5 ft. 4 in. st1 (162.56 cm); Pain 6/10; 03:32 Temp 96.9; st1 03:30 Body Mass Index 34.33 (90.72 kg, 162.56 cm) st1 MDM: 03:46 Patient medically screened. sp3 03:56 Data reviewed: vital signs, nurses notes. ED course: 46-year-old female with COVID-19 sp3 and now resolved chest pain. Given EKG being normal and normal vital signs with normal pulse oxygenation and benign exam, I do not believe patient is having any serious emergency in the thorax or abdomen/pelvis. Clinically have ruled out acute coronary syndrome, pulmonary embolism, sepsis, shock, mesenteric ischemia, internal hemorrhage, vascular compromise, or any other critical findings. Will reassure patient, educated on COVID-19 symptoms, and discharge patient home. Patient has normal vital signs with pulse oxygenation 99% on room air. Patient to continue taking OTC vitamins and nonsteroidals for her symptoms.. 03:57 ED course: Chest x-ray reviewed shows mild rotation to the left but otherwise clear sp3 lungs in the suboptimal 1 view.. 04/06 03:35 Order name: XRAY Chest (1 view) 04/06 03:35 Order name: EKG; Complete Time: 03:36 04/06 03:35 Order name: Cardiac monitoring; Complete Time: 03:35 04/06 03:35 Order name: EKG - Nurse/Tech; Complete Time: 03:36 04/06 03:35 Order name: IV Saline Lock; Complete Time: 03:36 04/06 03:35 Order name: O2 Per Protocol; Complete Time: 03:36 04/06 03:35 Order name: O2 Sat Monitoring; Complete Time: 03:36 as Administered Medications: No medications were administered Disposition Summary: 04/06/21 03:59 Discharge Ordered Location: Home sp3 Condition: Stable sp3 Diagnosis - SARS-associated coronavirus as the cause of diseases classified elsewhere sp3 Followup: sp3 - With: Private Physician - When: Upon discharge from the Emergency Department - Reason: Continuance of care Discharge Instructions: - Discharge Summary Sheet sp3 - COVID-19 sp3 - 10 Things You Can Do to Manage Your COVID-19 Symptoms at Home - [facility] sp3 Forms: - Medication Reconciliation Form sp3 - Thank You Letter sp3 - Antibiotic Education sp3 - Prescription Opioid Use sp3 Signatures: Dispatcher [employer] Laura Horton MD MD sp3 Carlos Brooks RN RN as6 Jami Bingham RN RN st1 Corrections: (The following items were deleted from the chart) 03:27 03:25 Allergies: Vicodin [Inactive]; st1 st1 03: 03:25 Allergies: HYDROCODONE [Inactive]; st1 st1 03: 03:25 PMHx: Depression; st1 st1 03: 03:25 PMHx: Anemia; st1 st1 03: 03:25 PMHx: acid reflux; st1 st1 03:27 03:25 PMHx: Anxiety; st1 st1 03: 03:25 PSHx: Total abdominal hysterectomy; st1 st1 03:35 03:34 PMHx: Asthma; st1 st1 04:00 03:35 Labs collected and sent ordered. as6 as6
--- NOTE | 2021-04-06 04:00 | ER ---
Nurse's Notes [facility] Name: Roxana Sanchez Age: 46 yrs Sex: Female : 1975 Arrival Date: 04/06/2021 Time: 03:14 Bed 4 Private MD: Diagnosis: SARS-associated coronavirus as the cause of diseases classified elsewhere Presentation: 04/06 03:21 Chief complaint: Patient states: the patient is complaining of kidney pain bilaterally st1 x 1 day. chest pain x 30 minutes ago, denies radiating pain. abdominal gas pain with bloating and constipation. Coronavirus screen: Vaccine status: Patient reports being unvaccinated. Client presents with at least one sign or symptom that may indicate coronavirus-19. Provider contacted for isolation considerations. Client reports previous positive COVID test result. Date of collection: April 02, 2021 results are located within the EHR/EMR. Ebola Screen: Patient negative for fever greater than or equal to 101.5 degrees Fahrenheit, and additional compatible Ebola Virus Disease symptoms. Initial Sepsis Screen: Does the patient meet any 2 criteria? No. Patient's initial sepsis screen is negative. Onset of symptoms was April 05, 2021. 03:21 Method Of Arrival: EMS: [facility] st1 03:37 Acuity: DELMI 3 as6 03:37 Initial Sepsis Screen: Does the patient have a suspected source of infection? No. as6 Patient's initial sepsis screen is negative. Risk Assessment: Do you want to hurt yourself or someone else? Patient reports no desire to harm self or others. Triage Assessment: 03:27 General: Appears in no apparent distress. obese, well groomed, well developed, well st1 nourished. General: Behavior is calm, cooperative. Pain: Complains of pain in chest Pain does not radiate. Pain currently is 6 out of 10 on a pain scale. Quality of pain is described as aching, Is intermittent. 03:28 Neuro: No deficits noted. Musculoskeletal: No deficits noted. 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 Flu vaccine is not up to date. Patient has never been vaccinated. - Social history:: Smoking status: Patient denies any tobacco usage or history of. - Code Status:: Full code. - Coronavirus screen:: The patient has NOT traveled to [place] in the past 14 days. Proceed with normal triage process as indicated. Screenin:30 Abuse screen: Denies threats or abuse. Nutritional screening: No deficits noted. st1 Tuberculosis screening: No symptoms or risk factors identified. Fall Risk None identified. Assessment: 03:29 General: Appears in no apparent distress. Behavior is calm, cooperative, Reports. Pain: st1 Complains of pain in chest Pain does not radiate. Pain currently is 6 out of 10 on a pain scale. Quality of pain is described as aching, Pain began 30 min ago. Is intermittent. Neuro: No deficits noted. Respiratory: No deficits noted. GI: Reports bloating, constipation, gaseousness. Vital Signs: 03:30 BP 128 / 91; Pulse 69; Resp 16; Pulse Ox 100% ; Weight 90.72 kg; Height 5 ft. 4 in. st1 (162.56 cm); Pain 6/10; 03:32 Temp 96.9; st1 03:30 Body Mass Index 34.33 (90.72 kg, 162.56 cm) st1 Vitals: 03:30 Cardiac Rhythm Assessment Regular. st1 ED Course: 03:14 Patient arrived in ED. mw2 03:19 Jami Bingham, ELIJAH is Primary Nurse. st1 03:20 Laura Rodriguez MD is Attending Physician. sp3 03:28 EKG completed in triage. Results shown to MD. st1 03:33 Patient has correct armband on for positive identification. Fall risk band placed. Bed st1 in low position. Call light in reach. Side rails up X 1. cafeteria monitor on. Pulse ox on. NIBP on. Door closed. Verbal reassurance given. 03:37 Triage completed. as6 03:37 Maintain EMS IV. Dressing intact. Good blood return noted. Site clean \T\ dry. Gauge \T\ as 6 site: 20g lac. 03:38 Arm band placed on. as6 03:40 Inserted saline lock: 20 gauge in left antecubital area, using aseptic technique. st1 03:47 XRAY Chest (1 view) Sent. st1 03:48 XRAY Chest (1 view) In Process Unspecified. EDMS 04:08 No provider procedures requiring assistance completed. IV discontinued, intact, st1 bleeding controlled, No redness/swelling at site. Pressure dressing applied. Administered Medications: No medications were administered Outcome: 03:59 Discharge ordered by . sp3 04:08 Discharged to home ambulatory. st1 04:08 Condition: stable 04:08 Discharge instructions given to patient, Instructed on discharge instructions, follow up and referral plans. Demonstrated understanding of instructions, follow-up care. 04:09 Patient left the ED. st1 Signatures: Dispatcher [employer] EDOH Alisha Harding mw2 Laura Rodriguez MD MD sp3 Carlos Brooks, RN RN as6 Jami Bingham RN RN st1 Corrections: (The following items were deleted from the chart) 03: 03:25 Allergies: Vicodin [Inactive]; st1 st1 03: 03:25 Allergies: HYDROCODONE [Inactive]; st1 st1 03:27 03:25 PMHx: Depression; st1 st1 03: 03:25 PMHx: Anemia; st1 st1 03:27 03:25 PMHx: acid reflux; st1 st1 03:27 03:25 PMHx: Anxiety; st1 st1 03:27 03:25 PSHx: Total abdominal hysterectomy; st1 st1 03:35 03:34 PMHx: Asthma; st1 st1
[2021-04-06 04:25] VITALS: BP 128/91; O2SAT 100
[2021-04-06 04:29] VITALS: TEMP 96.9
--- NOTE | 2021-04-06 07:46 | EKG ---
Test Date: 2021-04-06 Test Time: 03:25:22 Student Life Vice President: MEASUREMENT RESULTS: Intervals: Rate: 67 CO: 182 QRSD: 92 QT: 396 QTc: 418 [place]: P: 27 CO: 182 QRS: -7 T: 61 INTERPRETIVE STATEMENTS: Normal sinus rhythm Cannot rule out Anterior infarct, age undetermined Abnormal ECG Compared to ECG 03/29/2021 20:09:34 Ventricular premature complex(es) no longer present Myocardial infarct finding still present Electronically Signed On 04-06-21 07:45:30 BUFFET ATTENDANT by Fernando Varghese
--- NOTE | 2021-04-06 08:43 | RAD REPORT ---
EXAM DESCRIPTION: RAD - Chest Single View - 04/06/2021 3:49 am CLINICAL HISTORY: CHEST PAIN COMPARISON: Portable March 29 TECHNIQUE: AP portable chest image was obtained 04/06/2021 3:49 am . FINDINGS: Lung volumes remain low. No peripheral mass or consolidation. No significant failure or vo lume overload. Heart, vasculature and lung markings are accentuated by the shallow inspiration and lo rdotic positioning. Heart and vasculature are normal. No measurable pleural effusion and no pneumotho rax. No acute bony abnormality seen. No acute aortic findings suspected. IMPRESSION: No acute cardiopulmonary process. No significant change from comparison study.
== END 2021-04-06 04:09 | disposition home or self-care (01) ==
LOC: ER 03:10
DX: U07.1 COVID-19 (principal); Z88.5 Allergy status to narcotic agent
CPT/HCPCS: 71045; 93005; 99284

== ENCOUNTER 2021-04-11 13:22 | Emergency (ER) | payer SELFPAY ==
--- OUTSIDE RECORDS SUMMARY | 2021-04-11 13:27 | XMS REPORT | Continuity of Care Document ---
:1975 Author Organization [facility] t Address [address] [place] [address] Care Team Providers Name Role Phone Emiliano Mercado [facility] Primary Care Physic ashley RANJIT Attending Clinician Unavailable Ranjit RAY Attending Clinician Daina BRADFORD Attending Clinician Unavailable Catrina JIMENEZ G Attending Clinician Philippe SCHAFER S Attending Clinician Jayden PAEZ Attending Clinician Unavailable Brandy Caal Attending Clinician Brandy OCAMPO Attending Clinician Unavailable Payers Payer Name Policy Type Policy Number Effective Date Expiration Date S malaika MEDICAID PENDING PENDING 2021 00:00:00 [place] [id number] 2018 WOMEN 00:00:00 Problems Condition Condition Condition Status Onset Resolution Last Treating Co mments Source Name Details Category Date Date Treatment Clinician Date No known No known Disease Unive rs active active ity of problems problems [facility] Allergies, Adverse Reactions, Alerts Allergy Allergy Status Severity Reaction(s) Onset Inactive Treating Comm ents Source Name Type Date Date Clinician HYDROCOD DRUG Active Hallucinates Un kiara ONE INGREDI 4-20 ity of 00:00: [place] 00 Medical Branch Hydrocod Propensi Active Shortness of Univers one ty to Breath 4-20 ity of adverse 00:00: [place] reaction 00 Medical s Branch Social History Social Habit Start Date Stop Date Quantity Comments Source Exposure to Yes [facility] SARS-CoV-2 [place] [facility] (event) Branch Alcohol intake 2021-04-10 2021-04-10 Current [facility] 00:00:00 00:00:00 non-drinker of [facility] alcohol [place] (finding) Tobacco use and 2017-07-13 2017-07-13 Never used Universit y of exposure 00:00:00 00:00:00 [facility] Sex Ass[birth year] Universit y of 00:00:00 00:00:00 [facility] Smoking Status Start Date Stop Date Source Never smoker [facility] xa Medical Branch Medications Ordered Filled Start Stop Current Ordering Indication Dosage Frequency Signature Comments Components Source Medication Medication Date Date Medication? Clinician (SIG) Name Name cephALEXin 2021- No 500mg 500 mg, Un kiara (KEFLEX) 04-10 Oral, ity of capsule 500 21:35: 21:51 [place]CE, 1 [place] 00 :[place] dose, On Medical [place] Branch 04/10/21 at 1545, MESSI
Re ason for Anti-Infec tive: Documented Infection< br>Documen kuldip Infection Site: Urine
D uration of Therapy: 7 days cephALEXin 2021- Yes [id number] 500mg Take 1 Univers (KEFLEX) 04-10 capsule by ity of 500 mg 00:00: 05:59 mouth 3 [place] capsule 00 :00 (three) Medical times Branch daily for 7 days. NaCl 0.9% Yes 1000mL at 999 Univ ers (NS) IV 6-19 mL/hr, ity of infusion 03:15: Intravenou Eddie as 1,000 mL 00 s, Medical CONTINUOUS Branch , Starting Sun09/10/20 at 2215, Until Discontinu ed, Routine naproxen Yes [id number] 550mg Take 1 U nivers sodium 550 6-18 tablet by ity of mg tablet 00:00: mouth 2 (two) Medical times Branch daily with meals. naproxen Yes [id number] 550mg Take 1 U nivers sodium 550 6-18 tablet by ity of mg tablet 00:00: mouth 2 (two) Medical times Branch daily with meals. naproxen Yes [id number] 550mg Take 1 U nivers sodium 550 6-18 tablet by ity of mg tablet 00:00: mouth (two) Medical times Branch daily with meals. acetaminoph 2020- No 650mg 650 mg, U nivers en 05-05 Oral, ity of (TYLENOL) 22:45: 21:36 ONCE, 1 [place] tablet 650 00 :00 dose, Wed Medi liz mg 05/05/20 at Branch 1645, MESSI cephALEXin 2020- No [id number] 500mg Take 1 Univers 500 mg 05-05 capsule by ity of capsule 00:00: 05:59 mouth 4 [place] 00 :00 (four) Medical times Branch daily for 7 days. docusate 2017-0 Yes 250mg Take 1 Univer s sodium 250 7-07 capsule by ity of mg capsule 00:00: mouth [place] 00 daily. Medical Branch ondansetron 2017-0 Yes 4mg Take 1 Univ ers 4 [...] ity of capsule 00:00: mouth 3 [place] (three) Medical times Branch daily. ibuprofen 2018-0 [...] Time Observation Value Comments Source Systolic blood 2021-04-10 21:57:00 132 mm[Hg] Univer sity of [facility] Diastolic blood 2021-04-10 21:57:00 92 mm[Hg] Unive rsity of [facility] Heart rate 2021-04-10 21:57:00 71 /min [facility] Respiratory rate 2021-04-10 21:57:00 16 /min [facility] Oxygen saturation in 2021-04-10 21:57:00 100 /min [facility] Arterial blood by [facility] Pulse oximetry Branch Body temperature 2021-04-10 18:40:00 37.11 Kirsty [facility] Body height 2021-04-10 18:40:00 162.6 cm [facility] Body weight 2021-04-10 18:40:00 90.719 kg [facility] BMI 2021-04-10 18:40:00 34.33 kg/m2 [facility] Systolic blood 2021-04-03 07:03:00 149 mm[Hg] Univer sity [facility] Diastolic blood 2021-04-03 07:03:00 97 mm[Hg] Unive rsity of [facility] Heart rate 2021-04-03 07:03:00 82 /min [facility] Body temperature 2021-04-03 07:03:00 37.11 Kristy [facility] 2021-04-03 07:03:00 18 /min [facility] Body height 2021-04-03 07:03:00 162.6 cm [facility] Body weight 2021-04-03 07:03:00 90.719 kg [facility] [place] [facility] BMI 2021-04-03 07:03:00 34.33 kg/m2 [facility] [place] [facility] Oxygen saturation in 2021-04-03 07:03:00 98 /min University of Arterial blood by [facility] Pulse oximetry Branch Systolic blood 2020-09-11 04:00:00 135 mm[Hg] Univer sity of [facility] [place] [facility] Diastolic blood 2020-09-11 04:00:00 70 mm[Hg] Unive rsity of [facility] [place] [facility] Heart rate 2020-09-11 04:00:00 61 /min [facility] [place] [facility] Respiratory rate 2020-09-11 04:00:00 12 /min Univ ers[facility] [place] [facility] Oxygen saturation in 2020-09-11 04:00:00 99 /min University of Arterial blood by [facility] Pulse oximetry Branch Body temperature 2020-09-11 00:50:00 37.06 Kristy [facility] [place] [facility] Body height 2020-09-11 00:50:00 165.1 cm [facility] [place] [facility] Body weight 2020-09-11 00:50:00 86.183 kg [facility] [place] [facility] BMI 2020-09-11 00:50:00 31.62 kg/m2 [facility] [place] [facility] Heart rate 2020-05-05 22:41:00 92 /min [facility] [place] [facility] Systolic blood 2020-05-05 21:09:00 109 mm[Hg] Univer sity of [facility] Diastolic blood 2020-05-05 21:09:00 77 mm[Hg] Unive rsity of [facility] [place] [facility] Body temperature 2020-05-05 21:09:00 37.89 Kristy [facility] [place] [facility] Respiratory rate 2020-05-05 21:09:00 18 /min Univ [facility] [place] [facility] Body weight 2020-05-05 21:09:00 86.183 kg [facility] [place] [facility] BMI 2020-05-05 21:09:00 32.61 kg/m2 [facility] [place] [facility] Oxygen saturation in 2020-05-05 21:09:00 100 /min University of Arterial blood by [facility] Pulse oximetry Branch Heart rate 2020-05-05 22:41:00 92 /min [facility] [place] [facility] Systolic blood 2020-05-05 21:09:00 109 mm[Hg] Univer sity of [facility] [place] [facility] Diastolic blood 2020-05-05 21:09:00 77 mm[Hg] Unive rsity of [facility] [place] [facility] Body temperature 2020-05-05 21:09:00 37.89 Kristy [facility] [place] [facility] Respiratory rate 2020-05-05 21:09:00 18 /min Univ [facility] [place] [facility] Body weight 2020-05-05 21:09:00 86.183 kg [facility] [place] [facility] BMI 2020-05-05 21:09:00 32.61 kg/m2 [facility] [place] [facility] Oxygen saturation in 2020-05-05 21:09:00 100 /min University of Arterial blood by [facility] Pulse oximetry Branch Systolic blood 2019-10-04 23:45:19 136 mm[Hg] Univer sity of [facility] [place] [facility] Diastolic blood 2019-10-04 23:45:19 87 mm[Hg] Unive rsity of [facility] [place] [facility] Heart rate 2019-10-04 23:45:19 69 /min [facility] [place] [facility] Respiratory rate 2019-10-04 23:45:19 16 /min Univ [facility] [place] [facility] Oxygen saturation in 2019-10-04 23:45:19 100 /min University of Arterial blood by [facility] Pulse oximetry Branch Body temperature 2019-10-04 21:25:00 36.61 Kristy [facility] [place] [facility] Body height 2019-10-04 21:25:00 162.6 cm [facility] [place] [facility] Body weight 2019-10-04 21:25:00 88.905 kg [facility] [place] [facility] BMI 2019-10-04 21:25:00 33.64 kg/m2 [facility] [place] [facility] Systolic blood 2019-10-04 23:45:19 136 mm[Hg] Univer sity of [facility] [place] [facility] Diastolic blood 2019-10-04 23:45:19 87 mm[Hg] Unive rsity of [facility] [place] [facility] Heart rate 2019-10-04 23:45:19 69 /min [facility] [place] [facility] Respiratory rate 2019-10-04 23:45:19 16 /min [facility] Oxygen saturation in 2019-10-04 23:45:19 100 /min [facility] blood by [facility] Pulse oximetry Branch Body temperature 2019-10-04 21:25:00 36.61 Kristy [facility] Body height 2019-10-04 21:25:00 162.6 cm [facility] Body weight 2019-10-04 21:25:00 88.905 kg [facility] BMI 2019-10-04 21:25:00 33.64 kg/m2 [facility] Procedures Procedure Date / Time Performing Clinician Source Performed POCT TEST 2021-04-10 20:49:00 [facility] CREATINE KINASE 2021-04-10 20:44:00 Ranjit [facility] COMP. METABOLIC PANEL 2021-04-10 20:44:00 [facility]it [facility] ([id number]) [facility] CBC WITH DIFF 2021-04-10 20:44:00 Ranjit [facility] URINALYSIS 2021-04-10 20:44:00 Ranjit [facility] XR CHEST 1 VW 2021-04-10 19:38:38 Ranjit [facility] CONSENT/REFUSAL FOR 2021-04-10 18:33:05 Doctor Unassigned, No [facility] [place] [facility] Name [facility] XR ABDOMEN ACUTE SERIES 2021-04-03 07:31:57 Diana Bradford [facility] URINALYSIS 2021-04-03 07:10:00 Diana Bradford [facility] COVID-19 (ID NOW RAPID 2021-04-03 07:10:00 Diana Bradford [facility] TESTING) [facility] NOTICE OF PRIVACY 2021-04-03 06:51:09 Doctor Unassigned, No [facility] PRACTICES Name [facility] CONSENT/REFUSAL FOR 2021-04-03 06:49:41 [facility], [facility] EKG-12 LEAD 2020-09-11 03:54:05 Carla Paez [facility] XR CHEST 1 VW 2020-09-11 01:03:05 Carla Paez [facility] CBC WITH DIFF 2020-09-11 00:55:00 Carla Paez [facility] PROTHROMBIN TIME / INR 2020-09-11 00:55:00 Carla [facility]aez [facility] 2020-09-11 00:55:00 Carla Paez [facility] THRMPLAS MELISSA Medical Branch LIPASE 2020-09-11 00:55:00 Carla Paez [facility] TROPONIN I 2020-09-11 00:55:00 Carla Paez [facility] COMP. METABOLIC PANEL 2020-09-11 00:55:00 [facility] ([id number] CONSENT/REFUSAL FOR 2020-09-11 00:37:21 Doctor Unassigned, No [facility] URINALYSIS 2020-05-05 21:33:00 Marisol Ocampo [facility] NOTICE OF PRIVACY 2020-05-05 21:03:49 Doctor Unassigned, No [facility] Branch CONSENT/REFUSAL FOR 2020-05-05 21:02:41 Doctor Unassigned, No [facility] XR FOOT 3+ VW LEFT 2019-10-04 22:26:[address] [facility] NOTICE OF PRIVACY 2019-10-04 21:14:42 Doctor Unassigned, No [facility] Encounters Start End Encounter Admission Attending Care Care Encounter Source Date/Time Date/Time Type Type Clinicians Facility Department ID 2021-04-10 2021-04-10 Emergency X JOHNATHAN CHURCH ERT [id number] Univers 12:42:00 16:01:00 RANJIT gallego [facility] 2021-04-10 2021-04-10 Emergency JOHNATHAN Church [id number] Univers 12:42:00 16:01:00 Shinta [place] [id number] i ty of [place] 4.2.7.2.686 [facility] [id number] [address] 2021-04-03 2021-04-03 Emergency X [facility] ERT [id number] Univers 01:07:00 01:54:00 DIANA ity [facility] 2021-04-03 2021-04-03 Emergency [facility] [id number] Univers 01:07:00 01:54:00 Diana Ortiz [place] [id number] ity of [place] 4.2.7.2.686 [facility] [id number] [address] 2020-09-10 2020-09-10 Emergency [facility] [id number] Univers 19:42:00 23:08:00 Carla Carpenter [place] [id number] ity of [place] [address] [place] [id number] 2020-09-10 2020-09-10 Emergency X [facility] ERT [id number] Univers 19:42:00 19:42:00 [facility] 2020-05-05 2020-05-05 [facility] [id number] 15:10:00 16:55:00 Marisol R [place] [id number] [place] [address] [place] [address] [id number] [facility] 2020-05-05 2020-05-05 Emergency [facility] [id number] Univers 15:10:00 16:55:00 Mariosl R [place] [id number] i ty of [place] [address] [place] [id number] 2020-05-05 2020-05-05 Emergency X [facility] ERT [id number] Univers 15:03:00 15:03:00 MARISOL ity [facility] 2019-10-04 2019-10-04 Emergency [facility] [id number] 16:26:50 19:58:00 Shinta [place] [id number] [place] 4.2.7.2.686 [place] [id number] [facility] 2019-10-04 2019-10-04 [facility] [id number] Univers 16:26:50 19:58:00 Shinta [place] [id number] i ty of [place] 4.2.7.2.686 [facility] [id number] [address] 2019-10-04 2019-10-04 Emergency [facility] [id number] Univers 16:26:50 16:26:50 RANJIT gallego [facility] 2017-11-16 2017-11-16 Emergency E MHBL MHBL [id number] MHBL 21:34:00 21:34:00 2017-10-05 2017-10-05 Emergency [facility] MED [id number] [place] 12:20:00 12:20:00 Health 2017-07-14 2017-07-14 Emergency [facility] MED [id number] [place] 08:07:11 08:07:11 Health 2017-07-14 2017-07-14 Outpatient [facility] [id number] [place] 05:07:03 05:07:03 Health Results Test Description Test Time Test Comments Results Result Comments Source COMP. METABOLIC PANEL (16950) 2021-04-10 21:13:43 Test Item Value Reference Range Interpretation Comme nts NA (test code = 1782600539) 136 mmol/L 135-145 K (test code = 2838302873) 4.3 mmol/L 3.5-5.0 CL (test code = 2255933373) 96 mmol/L 98-108 L CO2 TOTAL (test code = 8367196675) 28 mmol/L 23-31 AGAP (test code = 9782150475) 2-16 BUN (test code = 0570596642) 9 mg/dL 7-23 GLUCOSE (test code = 4079537033) 102 mg/dL 70-110 CREATININE (test code = 0.69 mg/dL 0.50-1.04 6004488769) TOTAL BILI (test code = 0.4 mg/dL 0.1-1.9 2167910553) CALCIUM (test code = 6814303370) 11.0 mg/dL 8.6-10.6 H T PROTEIN (test code = 0019635395) 9.2 g/dL 6.3-8.2 H ALBUMIN (test code = 1279807534) 4.5 g/dL 3.5-5.0 ALK PHOS (test code = 6773213415) 113 U/L 34-122 ALTv (test code = 1742-6) 22 U/L 5-35 AST(SGOT) (test code = 5918796549) 25 U/L 13-40 eGFR (test code = 6153122927) mL/min/1.73m2 YANIRA (test code = YANIRA) Association of Glomerular Filtration Rate (GFR) and Staging of Kidney Disease* + +-------- + ------+| GFR (mL/min/1.73 m2) ?| With Kidney Damage ?| ?Without Kidney Damage+ +-- + +| ?>90 ?| ?Stage one ?| ? Normal ?+ +------- + -------+| ?60-89 ?| ?Stage two ?| ? Decreased GFR ? + +-------- + ------+| ?30-59 ?| ?Stage three ?| ? Stage three ? + +-------- + ------+| ?15-29 ?| ?Stage four ? | ? Stage four ?+ +------- + -------+| ?<15 (or dialysis) ? ?| ?Stage five ? | ? Stage five ?+ +------- + -------+ *Each stage assumes the associated GFR [...] or abnormalities in imaging tests). Lab Interpretation (test code = Abnormal 24513-2) [facility] [id number] 21:13:17 Test Item Value Reference Range Interpretation Comments CK (test code = 1029845105) 118 U/L 33-194 Lab Interpretation (test code = Normal 26070-3) [facility] WITH [id number] 21:01:01 Test Item Value Reference Range Interpretation Comments WBC (test code = See_Comment [Automated message] 6690-2) The system [employer] generated this result transmitted ref erence range: 4.30 - 1 1.10 10*3/?L. The re ference range was not u sed to interpret this result as normal/abnor mal. RBC (test code = See_Comment [Automated message] 789-8) The system [employer] generated this result transmitted ref erence range: 3.93 - 5 .25 10*6/?L. The re ference range was not u sed to interpret this result as normal/abnor mal. HGB (test code = 13.3 g/dL 11.6-15.0 718-7) HCT (test code = 39.8 % 35.7-45.2 4544-3) MCV (test code = 88.4 fL 80.6-95.5 787-2) MCH (test code = 29.6 pg 25.9-32.8 785-6) MCHC (test code = 33.4 g/dL 31.6-35.1 786-4) RDW-SD (test code 40.6 fL 39.0-49.9 = 50348-0) RDW-CV (test code 12.6 % 12.0-15.5 = 788-0) PLT (test code = See_Comment [Automated message] 777-3) The system [employer] generated this result transmitted ref erence range: 166 - 35 8 10*3/?L. The re ference range was not u sed to interpret this result as normal/abnor mal. MPV (test code = 9.8 fL 9.5-12.9 39297-8) NRBC/100 WBC (test See_Comment [Automat ed message] code = 7416312628) The syste [employer] which generated this result transmitted ref erence range: 0.0 - 10 .0 /100 WBCs. The refer ence range was not u sed to interpret this result as normal/abnor mal. NRBC x10^3 (test <0.01 See_Comment [Automated message] code = 9210769266) The syste m which generated this result transmitted ref erence range: 10*3/?L. The reference range was not used to interpr et this result as normal/abnormal . GRAN MAT (NEUT) % 61.0 % (test code = 770-8) IMM GRAN % (test 0.20 % code = 4654159707) LYMPH % (test code 30.1 % = 736-9) MONO % (test code 6.4 % = 5905-5) EOS % (test code = 2.1 % 713-8) BASO % (test code 0.2 % = 706-2) GRAN MAT 5.35 10*3/uL 1.88-7.09 x10^3(ANC) (test code = 0029137424) IMM GRAN x10^3 <0.03 0.00-0.06 (test code = 0978515313) LYMPH x10^3 (test 2.64 10*3/uL 1.32-3.29 code = 731-0) MONO x10^3 (test 0.56 10*3/uL 0.33-0.92 code = 742-7) EOS x10^3 (test 0.18 10*3/uL 0.03-0.39 code = 711-2) BASO x10^3 (test <0.03 0.01-0.07 code = 704-7) [id number] 20:49[facility]00 Test Item Value Reference Range Interpretation Comments POCT PREG (test code = 1605) Negative On board controls acceptable with Present C Line (test code = 3574) POCT PREG LOT # (test code = HCG 1421311 0915) POCT PREG TEST DATE (test 05/23/2022 code = 3576) Lab Interpretation (test code = Normal 69029-6) [facility] [id number] 01:38:03 Test Item Value Reference Range Interpretation Comments TROPONIN I (test 0.002 ng/mL See_Comment [Automated code = 1445939437) message] The system which generated this result transmitted reference range : <=0.034. The reference range was not used to interpret this result as normal/abnormal . YANIRA (test code = Equal or Less than YANIRA) 0.034 ng/ml---Normal ?Note: Cardiac troponin begins to [...] patient's use of biotin. ? Lab Interpretation Normal (test code = 87784-4) [facility] (67315)2020-09-11 01:38:03 Test Item Value Reference Range Interpretation Comments NA (test code = 141 mmol/L 135-145 9173216466) K (test code = 3.9 mmol/L 3.5-5.0 9765737849) CL (test code = 103 mmol/L 98-108 5872077484) CO2 TOTAL (test code = 27 mmol/L 23-31 0219142743) AGAP (test code = 2-16 4427025983) BUN (test code = 13 mg/dL 7-23 9309496617) GLUCOSE (test code = 131 mg/dL 70-110 H 1855515675) CREATININE (test code = 0.76 mg/dL 0.50-1.04 9093651830) TOTAL BILI (test code = 0.4 mg/dL 0.1-1.1 3697117471) CALCIUM (test code = 11.4 mg/dL 8.6-10.6 H 7095750689) T PROTEIN (test code = 9.5 g/dL 6.3-8.2 H 4108127214) ALBUMIN (test code = 4.6 g/dL 3.5-5.0 9807493782) ALK PHOS (test code = 108 U/L 34-122 0635159568) ALTv (test code = 26 U/L 5-35 1742-6) AST(SGOT) (test code = 33 U/L 13-40 5999390014) eGFR (test code = mL/min/1.73m2 8962650165) YANIRA (test code = YANIRA) Association of [...] tests). Lab Interpretation Abnormal (test code = 72907-9) [facility], [id number] 01:38:03 Test Item Value Reference Range Interpretation Comments LIPASE (test code = 0429484806) 195 U/L 0-220 Lab Interpretation (test code = Normal 04837-4) [facility] 01:20:00 Test Item Value Reference Range [...] seconds. Lab Interpretation Normal (test code = 25493-9) [facility] / [id number] 01:17:58 Test Item Value Reference Range Interpretation Comments PROTIME PATIENT (test See_Comment [Auto mated message] code = 5964-2) The system [facility] generated this result transmitted ref erence range: 12.0 - 1 4.7 Seconds. The re ference range was not u sed to interpret this result as normal/abnor mal. INR (test code = 6301-6) Nor mal INR <1.1; Warfarin Therap eutic range 2.0 to 3. 0 or 2.5 to 3.5, dep ending upon the indica tions. Lab Interpretation (test Normal code = 48374-1) [facility] WITH [id number] 01:10:57 Test Item Value Reference Range Interpretation Comments WBC (test code = See_Comment [Automated message] 6690-2) The system [employer] generated this result transmitted ref erence range: 4.30 - 1 1.10 10*3/?L. The re ference range was not u sed to interpret this result as normal/abnor mal. RBC (test code = See_Comment [Automated message] 789-8) The system [employer] generated this result transmitted ref erence range: [...] RDW-SD (test code 40.8 fL 39.0-49.9 = 68613-8) RDW-CV (test code 12.6 % 12.0-15.5 = 788-0) PLT (test code = See_Comment [Automated message] 777-3) The system whic h generated this result transmitted ref erence range: 166 - 35 8 10*3/?L. The re ference range was not u sed to interpret this result as normal/abnor mal. MPV (test code = 10.0 fL 9.5-12.9 23075-7) NRBC/100 WBC (test See_Comment [Automat ed message] code = 6439489184) The syste m which generated this result transmitted ref erence range: 0.0 - 10 .0 /100 WBCs. The refer ence range was not u sed to interpret this result as normal/abnor mal. NRBC x10^3 (test <0.01 See_Comment [Automated message] code = 9588161226) The syste m which generated this result transmitted ref erence range: 10*3/?L. The reference range was not used to interpr et this result as normal/abnormal . GRAN MAT (NEUT) % 53.6 % (test code = 770-8) IMM GRAN % (test 0.30 % code = 2482764677) LYMPH % (test code 35.7 % = 736-9) MONO % (test code 7.7 % = 5905-5) EOS % (test code = 2.4 % 713-8) BASO % (test code 0.3 % = 706-2) GRAN MAT 3.94 10*3/uL 1.88-7.09 x10^3(ANC) (test code = 9259301067) IMM GRAN x10^3 <0.03 0.00-0.06 (test code = 4337031527) LYMPH x10^3 (test 2.63 10*3/uL 1.32-3.29 code = 731-0) MONO x10^3 (test 0.57 10*3/uL 0.33-0.92 code = 742-7) EOS x10^3 (test 0.18 10*3/uL 0.03-0.39 code = 711-2) BASO x10^3 (test <0.03 0.01-0.07 code = 704-7) [facility] 22:06:00 Test Item Value Reference Range Interpretation Comments APPEARANCE (test code = Cloudy Clear A 9594761537) COLOR (test code = Yellow Yellow 8575251348) PH (test code = 4.8-8.0 7556846320) SP GRAVITY (test code = 1.003-1.030 [id number]) GLU U QUAL (test code = Normal Normal [id number]) BLOOD (test code = Negative Negative INTERFERE NCE FROM [id number]) ASCORBIC ACID M AY CAUSE FALSE NEG ATIVE RESULT KETONES (test code = Negative Negative [id number]) PROTEIN (test code = 30 mg/dL Negative A 2887-8) UROBILIN (test code = 2.0 mg/dL Normal A 9675893478) BILIRUBIN (test code = Negative Negative 8758140737) NITRITE (test code = Negative Negative 2722981166) LEUK ANA (test code = 25/uL Negative A 9339352368) RBC/HPF (test code = <1 See_Comment [Autom ated message] [id number]) The system [employer] generated this result transmitted ref erence range: 0 - 3 HP F. The reference range was not used to int erpret this result as normal/abnormal . WBC/HPF (test code = See_Comment H [Autom ated message] [id number]) The system [employer] generated this result transmitted ref erence range: 0 - 5 HP F. The reference range was not used to int erpret this result as normal/abnormal . BACTERIA (test code = Many Negative A 5444168823) MUCOUS (test code = Slight Negative LPF A 8466536554) AMORPHOUS (test code = Few Rare HPF A 6463585287) SQ EPITH (test code = HPF 7571572575) CA OXALATE (test code = See_Comment H [Au tomated message] 1701790232) The system [employer] generated this result transmitted ref erence range: <=1 HPF. The reference range was not used to int erpret this result as normal/abnormal . Lab Interpretation Abnormal (test code = 63276-7) [facility]"
--- NOTE | 2021-04-11 13:57 | ER ---
Nurse's Notes [facility] Name: Roxana Sanchez Age: 46 yrs Sex: Female : 1975 Arrival Date: 04/11/2021 Time: 13:37 Bed Waiting Private MD: Diagnosis: Assessment: 04/11 13:56 Reassessment: Registration stated pt left ED. vg1 ED Course: 13:37 Patient arrived in ED. am2 Administered Medications: No medications were administered Outcome: 13:57 Patient left the ED. vg1 Signatures: Kavitha Neal am2 Kareen Stephenson, RN RN vg1
== END 2021-04-11 13:57 | disposition left against medical advice (07) ==
LOC: ER 13:22
DX: Z02.9 Encounter for administrative examinations, unspecified (principal)

== ENCOUNTER 2021-04-11 18:12 | Emergency (ER) | payer SELFPAY ==
--- OUTSIDE RECORDS SUMMARY | 2021-04-11 18:14 | XMS REPORT | Continuity of Care Document ---
:1975 Author Organization [facility] t Address [address] [place] [address] Care Team Providers Name Role Phone Emiliano Mercado [facility] ashley RANJIT Attending Clinician Unavailable Ranjit RAY Attending Clinician Diana BRADFORD Attending Clinician Unavailable Catrina JIMENEZ G Attending Clinician Philippe SCHAFER S Attending Clinician Jayden PAEZ Attending Clinician Unavailable Brandy Caal Attending Clinician Brandy OCAMPO Attending Clinician Unavailable Payers Payer Name Policy Type Policy Number Effective Date Expiration Date S malaika MEDICAID PENDING PENDING 2021 00:00:00 [place] [id number] 2018 WOMEN 00:00:00 Problems Condition Condition Condition Status Onset Resolution Last Treating Co mments Source Name Details Category Date Date Treatment Clinician Date No known No known Disease Unive rs active active ity of problems problems [facility] Allergies, Adverse Reactions, Alerts Allergy [...] Date Quantity Comments Source Exposure to Yes [facility] SARS-CoV-2 [place] [facility] (event) Branch Alcohol intake 2021-04-10 2021-04-10 Current [facility] 00:00:00 00:00:00 non-drinker of [facility] alcohol [place] (finding) Tobacco use and 2017-07-13 2017-07-13 Never used Universit y of exposure 00:00:00 00:00:00 [facility] Sex Ass[birth year] Universit y of 00:00:00 00:00:00 [facility] Smoking Status Start Date Stop Date Source Never smoker [facility] xa Medical Branch Medications Ordered Filled Start [...] of Therapy: 7 days cephALEXin 2021- Yes [id number] 500mg Take 1 Univers (KEFLEX) 04-10 capsule [...] 2215, Until Discontinu ed, Routine naproxen Yes [id number] 550mg Take 1 U nivers sodium 550 6-18 tablet by ity of mg tablet 00:00: mouth 2 (two) Medical times Branch daily with meals. naproxen Yes [id number] 550mg Take 1 U nivers sodium 550 6-18 tablet by ity of mg tablet 00:00: mouth 2 (two) Medical times Branch daily with meals. naproxen Yes [id number] 550mg Take 1 U nivers sodium 550 6-18 tablet by ity of mg tablet 00:00: mouth (two) Medical times Branch daily with meals. acetaminoph 2020- No 650mg 650 mg, U nivers en 05-05 Oral, ity of (TYLENOL) 22:45: 21:36 ONCE, [place] 650 [place] :00 dose, Wed Medi liz mg 05/05/20 at Branch 1645, MESSI cephALEXin 2020- No [id number] 500mg Take 1 Univers 500 mg 05-05 [...] 2021-04-10 21:57:00 132 mm[Hg] Univer sity of [facility] Diastolic blood 2021-04-10 21:57:00 92 mm[Hg] Unive rsity of [facility] Heart rate 2021-04-10 21:57:00 71 /min [facility] Respiratory rate 2021-04-10 21:57:00 16 /min [facility] Oxygen saturation in 2021-04-10 21:57:00 100 /min [facility] Arterial blood by [facility] Pulse oximetry Branch Body temperature 2021-04-10 18:40:00 37.11 Kristy [facility] Body height 2021-04-10 18:40:00 162.6 cm [facility] Body weight 2021-04-10 18:40:00 90.719 kg [facility] BMI 2021-04-10 18:40:00 34.33 kg/m2 [facility] Systolic blood 2021-04-03 07:03:00 149 mm[Hg] Univer sity [facility] Diastolic blood 2021-04-03 07:03:00 97 mm[Hg] Unive rsity of [facility] Heart rate 2021-04-03 07:03:00 82 /min [facility] Body temperature 2021-04-03 07:03:00 37.11 Kristy [facility] Res[facility] rate 2021-04-03 07:03:00 18 /min [facility] Body height 2021-04-03 07:03:00 162.6 cm [facility] Body weight 2021-04-03 07:03:00 90.719 kg [facility] [place] [facility] BMI 2021-04-03 07:03:00 34.33 kg/m2 [facility] [place] [facility] Oxygen saturation in 2021-04-03 07:03:00 98 /min University of Arterial blood by [facility] Pulse oximetry Branch Systolic blood 2020-09-11 04:00:00 135 mm[Hg] Univer sity of [facility] [place] [facility] Diastolic blood 2020-09-11 04:00:00 70 mm[Hg] Unive rsity of [facility] [place] [facility] Heart rate 2020-09-11 04:00:00 61 /min [facility] [place] [facility] Respiratory rate 2020-09-11 04:00:00 12 /min Univ ers[facility] [place] [facility] Oxygen saturation in 2020-09-11 04:00:00 99 /min University of Arterial blood by [facility] Pulse oximetry Branch Body temperature 2020-09-11 00:50:00 37.06 Kristy Univ [facility] [place] [facility] Body height 2020-09-11 00:50:00 165.1 cm [facility] [place] [facility] Body weight 2020-09-11 00:50:00 86.183 kg [facility] [place] [facility] BMI 2020-09-11 00:50:00 31.62 kg/m2 [facility] [place] [facility] Heart rate 2020-05-05 22:41:00 92 /min [facility] [place] [facility] Systolic blood 2020-05-05 21:09:00 109 mm[Hg] Univer sity of [facility] Medical [facility] Diastolic blood 2020-05-05 21:09:00 77 mm[Hg] Unive rsity of [facility] [place] [facility] Body temperature 2020-05-05 21:09:00 37.89 Kristy [facility] [place] [facility] Respiratory rate 2020-05-05 21:09:00 18 /min Univ [facility] [place] [facility] Body weight 2020-05-05 21:09:00 86.183 kg [facility] [place] [facility] BMI 2020-05-05 21:09:00 32.61 kg/m2 [facility] [place] [facility] Oxygen saturation in 2020-05-05 21:09:00 100 /min University of Arterial blood by [facility] Pulse oximetry Branch Heart rate 2020-05-05 22:41:00 92 /min [facility] [place] [facility] Systolic blood 2020-05-05 21:09:00 109 mm[Hg] Univer sity of [facility] [place] [facility] Diastolic blood 2020-05-05 21:09:00 77 mm[Hg] Unive rsity of [facility] [place] [facility] Body temperature 2020-05-05 21:09:00 37.89 Kristy [facility] [place] [facility] Respiratory rate 2020-05-05 21:09:00 18 /min Univ [facility] [place] [facility] Body weight 2020-05-05 21:09:00 86.183 kg [facility] [place] [facility] BMI 2020-05-05 21:09:00 32.61 kg/m2 [facility] [place] [facility] Oxygen saturation in 2020-05-05 21:09:00 100 /min University of Arterial blood by [facility] Pulse oximetry Branch Systolic blood 2019-10-04 23:45:19 136 mm[Hg] Univer sity of [facility] [place] [facility] Diastolic blood 2019-10-04 23:45:19 87 mm[Hg] Unive rsity of [facility] [place] [facility] Heart rate 2019-10-04 23:45:19 69 /min [facility] [place] [facility] Respiratory rate 2019-10-04 23:45:19 16 /min Univ [facility] [place] [facility] Oxygen saturation in 2019-10-04 23:45:19 100 /min University of Arterial blood by [facility] Pulse oximetry Branch Body temperature 2019-10-04 21:25:00 36.61 Kristy [facility] [place] [facility] Body height 2019-10-04 21:25:00 162.6 cm [facility] [place] [facility] Body weight 2019-10-04 21:25:00 88.905 kg [facility] [place] [facility] BMI 2019-10-04 21:25:00 33.64 kg/m2 [facility] [place] [facility] Systolic blood 2019-10-04 23:45:19 136 mm[Hg] Univer sity of [facility] [place] [facility] Diastolic blood 2019-10-04 23:45:19 87 mm[Hg] Unive rsity of [facility] [place] [facility] Heart rate 2019-10-04 23:45:19 69 /min [facility] [place] [facility] Respiratory rate 2019-10-04 23:45:19 16 /min [facility] Oxygen saturation in 2019-10-04 23:45:19 100 /min [facility] blood by [facility] Pulse oximetry Branch Body temperature 2019-10-04 21:25:00 36.61 Kristy [facility] Body height 2019-10-04 21:25:00 162.6 cm [facility] Body weight 2019-10-04 21:25:00 88.905 kg [facility] BMI 2019-10-04 21:25:00 33.64 kg/m2 [facility] Procedures Procedure Date / Time Performing Clinician Source Performed POCT TEST 2021-04-10 20:49:00 [facility] CREATINE KINASE 2021-04-10 20:44:00 Ranjit [facility] COMP. METABOLIC PANEL 2021-04-10 20:44:00 Ranjit Church [facility] ([id number]) [facility] CBC WITH DIFF 2021-04-10 20:44:00 Ranjit [facility] URINALYSIS 2021-04-10 20:44:00 Ranjit [facility] XR CHEST 1 VW 2021-04-10 19:38:38 Ranjit [facility] CONSENT/REFUSAL FOR 2021-04-10 18:33:05 Doctor Unassigned, No [facility] [place] [facility] Name [facility] XR ABDOMEN ACUTE SERIES 2021-04-03 07:31:57 Diana Bradford [facility] URINALYSIS 2021-04-03 07:10:00 Diana Bradford [facility] COVID-19 (ID NOW RAPID 2021-04-03 07:10:00 Diana Bradford [facility] TESTING) [facility] NOTICE OF PRIVACY 2021-04-03 06:51:09 Doctor Unassigned, No [facility] PRACTICES Name [facility] CONSENT/REFUSAL FOR 2021-04-03 06:49:41 [facility]igned, [facility] EKG-12 LEAD 2020-09-11 03:54:05 Carla Paez [facility] XR CHEST 1 VW 2020-09-11 01:03:05 Carla Paez [facility] CBC WITH DIFF 2020-09-11 00:55:00 Carla Paez [facility] PROTHROMBIN TIME / INR 2020-09-11 00:55:00 Carla Paez [facility] ACTIVATED PARTIAL 2020-09-11 00:55:00 Carla Paez [facility] THRMPLAS MELIS[place] Medical Branch LIPASE 2020-09-11 00:55:00 Carla Paez [facility] TROPONIN I 2020-09-11 00:55:00 Carla Paez [facility] COMP. METABOLIC PANEL 2020-09-11 00:55:00 [facility] ([id number]) [facility] CONSENT/REFUSAL FOR 2020-09-11 00:37:21 Doctor Unassigned, No [facility] URINALYSIS 2020-05-05 21:33:00 Marisol Ocampo [facility] NOTICE OF PRIVACY 2020-05-05 21:03:49 Doctor Unassigned, No [facility] Branch CONSENT/REFUSAL FOR 2020-05-05 21:02:41 Doctor Unassigned, No [facility] XR FOOT 3+ VW LEFT 2019-10-04 22:26:37 Ranjit Church [facility] NOTICE OF PRIVACY 2019-10-04 21:14:42 Doctor Unassigned, No [facility] Encounters Start End Encounter Admission Attending Care Care Encounter Source Date/Time Date/Time Type Type Clinicians Facility Department ID 2021-04-10 2021-04-10 Emergency X JOHNATHAN CHURCH ERT [id number] Univers 12:42:00 16:01:00 RANJIT gallego [facility] 2021-04-10 2021-04-10 Emergency JOHNATHAN Church [id number] Univers 12:42:00 16:01:00 Shinta [place] [id number] i ty of [place] 4.2.7.2.686 [facility] [id number] [address] 2021-04-03 2021-04-03 Emergency [facility] ERT [id number] Univers 01:07:00 01:54:00 DIANA ity [facility] 2021-04-03 2021-04-03 Emergency [facility] [id number] Univers 01:07:00 01:54:00 Diana Ortiz [place] [id number] ity of [place] 4.2.7.2.686 [facility] [id number] [address] 2020-09-10 2020-09-10 Emergency Critical access hospital [id number] Univers 19:42:00 23:08:00 Carla Carpenter [place] [id number] ity of [place] [address] [place] [id number] 2020-09-10 2020-09-10 Emergency [facility] ERT [id number] Univers 19:42:00 19:42:00 [facility] 2020-05-05 2020-05-05 [facility] [id number] 15:10:00 16:55:00 Marisol R [place] [id number] [place] [address] [place] [address] [id number] [facility] 2020-05-05 2020-05-05 Emergency [facility] [id number] Univers 15:10:00 16:55:00 Marisol R [place] [id number] i ty of [place] [address] [place] [id number] 2020-05-05 2020-05-05 Emergency X [facility] ERT [id number] Univers 15:03:00 15:03:00 MARISOL ity [facility] 2019-10-04 2019-10-[address] [facility] [id number] 16:26:50 19:58:00 Shinta [place] [id number] [place] 4.2.7.2.686 [place] [id number] [facility] 2019-10-04 2019-10-04 [facility] [id number] Univers 16:26:50 19:58:00 Shinta [place] [id number] i ty of [place] 4.2.7.2.686 [facility] [id number] [address] 2019-10-04 2019-10-04 Emergency [facility] [id number] Univers 16:26:50 16:26:50 RANJIT gallego [facility] 2017-11-16 2017-11-16 Emergency E MHBL MHBL [id number] MHBL 21:34:00 21:34:00 2017-10-05 2017-10-05 Emergency [facility] [id number] [place] 12:20:00 12:20:00 Health 2017-07-14 2017-07-14 Emergency [facility] [id number] [place] 08:07:11 08:07:11 Health 2017-07-14 2017-07-14 Outpatient [facility] [id number] [place] 05:07:03 05:07:03 Health Results Test Description Test Time Test Comments Results Result Comments Source COMP. METABOLIC PANEL (64038) 2021-04-10 21:13:43 Test Item Value Reference Range Interpretation Comme nts NA (test code = 9031500410) 136 mmol/L 135-145 K (test code = 8300473300) 4.3 mmol/L 3.5-5.0 CL (test code = 8834086451) 96 mmol/L 98-108 L CO2 TOTAL (test code = 9606672122) 28 mmol/L 23-31 AGAP (test code = 0849598093) 2-16 BUN (test code = 3467701151) 9 mg/dL 7-23 GLUCOSE (test code = 5394147003) 102 mg/dL 70-110 CREATININE (test code = 0.69 mg/dL 0.50-1.04 6060619098) TOTAL BILI (test code = 0.4 mg/dL 0.1-1.0 4033729350) CALCIUM (test code = 5124676513) 11.0 mg/dL 8.6-10.6 H T PROTEIN (test code = 5092880512) 9.2 g/dL 6.3-8.2 H ALBUMIN (test code = 4209552718) 4.5 g/dL 3.5-5.0 ALK PHOS (test code = 5093903687) 113 U/L 34-122 ALTv (test code = 1742-6) 22 U/L 5-35 AST(SGOT) (test code = 6856672228) 25 U/L 13-40 eGFR (test code = 3731904820) mL/min/1.73m2 YANIRA (test code = YANIRA) Association [...] tests). Lab Interpretation (test code = Abnormal 34404-9) [facility] [id number] 21:13:17 Test Item Value Reference Range Interpretation Comments CK (test code = 3650216050) 118 U/L 33-194 Lab Interpretation (test code = Normal 79533-7) [facility] WITH [id number] 21:01:01 Test Item Value Reference Range Interpretation Comments WBC (test code = See_Comment [Automated message] 6690-2) The system [employer] generated this result transmitted ref erence range: 4.30 - 1 1.10 10*3/?L. The re ference range was not u sed to interpret this result as normal/abnor mal. RBC (test code = See_Comment [Automated message] 789-8) The system [employer] generated this result transmitted ref erence range: [...] RDW-SD (test code 40.6 fL 39.0-49.9 = 26882-4) RDW-CV (test code 12.6 % 12.0-15.5 = 788-0) PLT (test code = See_Comment [Automated message] 777-3) The system [employer] generated this result transmitted ref erence range: 166 - 35 8 10*3/?L. The re ference range was not u sed to interpret this result as normal/abnor mal. MPV (test code = 9.8 fL 9.5-12.9 48062-0) NRBC/100 WBC (test See_Comment [Automat ed message] code = 2628485368) The syste [employer] which generated this result transmitted ref erence range: 0.0 - 10 .0 /100 WBCs. The refer ence range was not u sed to interpret this result as normal/abnor mal. NRBC x10^3 (test <0.01 See_Comment [Automated message] code = 9933843983) The syste m which generated this result transmitted ref erence range: 10*3/?L. The reference range was not used to interpr et this result as normal/abnormal . GRAN MAT (NEUT) % 61.0 % (test code = 770-8) IMM GRAN % (test 0.20 % code = 3802557111) LYMPH % (test code 30.1 % = 736-9) MONO % (test code 6.4 % = 5905-5) EOS % (test code = 2.1 % 713-8) BASO % (test code 0.2 % = 706-2) GRAN MAT 5.35 10*3/uL 1.88-7.09 x10^3(ANC) (test code = 4143517137) IMM GRAN x10^3 <0.03 0.00-0.06 (test code = 7876391462) LYMPH x10^3 (test 2.64 10*3/uL 1.32-3.29 code = 731-0) MONO x10^3 (test 0.56 10*3/uL 0.33-0.92 code = 742-7) EOS x10^3 (test 0.18 10*3/uL 0.03-0.39 code = 711-2) BASO x10^3 (test <0.03 0.01-0.07 code = 704-7) [facility] [id number] 20:49:00 Test Item Value Reference Range Interpretation Comments POCT PREG (test code = 1605) Negative On board controls acceptable with Present C Line (test code = 3574) POCT PREG LOT # (test code = HCG [id number]) POCT PREG TEST DATE (test 05/23/2022 code = 3576) Lab Interpretation (test code = Normal 07752-6) [facility] [id number] 01:38:03 Test Item Value Reference Range Interpretation Comments TROPONIN I (test 0.002 ng/mL See_Comment [Automated code = 9123471705) message] The system which generated this result [...] ? Lab Interpretation Normal (test code = 16656-0) [facility] PAN[facility] (20528)2020-09-11 01:38:03 Test Item Value Reference Range Interpretation Comments NA (test code = 141 mmol/L 135-145 8584876833) K (test code = 3.9 mmol/L 3.5-5.0 7283066422) CL (test code = 103 mmol/L 98-108 4817532738) CO2 TOTAL (test code = 27 mmol/L 23-31 8953266595) AGAP (test code = 2-16 0681615494) BUN (test code = 13 mg/dL 7-23 5404008084) GLUCOSE (test code = 131 mg/dL 70-110 H 6754894388) CREATININE (test code = 0.76 mg/dL 0.50-1.04 7625231429) TOTAL BILI (test code = 0.4 mg/dL 0.1-1.4 2814327491) CALCIUM (test code = 11.4 mg/dL 8.6-10.6 H 2312291761) T PROTEIN (test code = 9.5 g/dL 6.3-8.2 H 0161357491) ALBUMIN (test code = 4.6 g/dL 3.5-5.0 6960334983) ALK PHOS (test code = 108 U/L 34-122 0911983980) ALTv (test code = 26 U/L 5-35 1742-6) AST(SGOT) (test code = 33 U/L 13-40 5149272037) eGFR (test code = mL/min/1.73m2 4225383692) YANIRA (test code = YANIRA) Association of [...] tests). Lab Interpretation Abnormal (test code = 18308-8) [facility], [id number] 01:38:03 Test Item Value Reference Range Interpretation Comments LIPASE (test code = 6384277656) 195 U/L 0-220 Lab Interpretation (test code = Normal 14014-3) [id number] 01:20:00 Test Item Value Reference Range Interpretation Comments APTT Patient (test See_Comment [Automat ed code = 3173-2) message] The system which generated this result transmitted reference range : 23 - 38 Seconds . The reference range was not used to interpr et this result as normal/abnormal . YANIRA (test code = YANIRA) The [facility] patient population mean normal value for aPTT is 30 seconds. Lab Interpretation Normal (test code = 03327-2) [facility] / [id number] 01:17:58 Test Item Value Reference Range Interpretation Comments PROTIME PATIENT (test See_Comment [Auto mated message] code = 5964-2) The system [facility] generated this result transmitted ref erence range: 12.0 - 1 4.7 Seconds. The re ference range was not u sed to interpret this result as normal/abnor mal. INR (test code = 6301-6) Nor mal INR <1.1; Warfarin Therap eutic range 2.0 to 3. 0 or 2.5 to 3.5, dep ending upon the indica tions. Lab Interpretation (test Normal code = 58240-3) [facility] WITH [id number] 01:10:57 Test Item Value Reference Range Interpretation Comments WBC (test code = See_Comment [Automated message] 6690-2) The system [employer] generated this result transmitted ref erence range: 4.30 - 1 1.10 10*3/?L. The re ference range was not u sed to interpret this result as normal/abnor mal. RBC (test code = See_Comment [Automated message] 789-8) The system [employer] generated this result transmitted ref erence range: [...] RDW-SD (test code 40.8 fL 39.0-49.9 = 46851-3) RDW-CV (test code 12.6 % 12.0-15.5 = 788-0) PLT (test code = See_Comment [Automated message] 777-3) The system whic h generated this result transmitted ref erence range: 166 - 35 8 10*3/?L. The re ference range was not u sed to interpret this result as normal/abnor mal. MPV (test code = 10.0 fL 9.5-12.9 37796-8) NRBC/100 WBC (test See_Comment [Automat ed message] code = 8437279530) The syste m which generated this result transmitted ref erence range: 0.0 - 10 .0 /100 WBCs. The refer ence range was not u sed to interpret this result as normal/abnor mal. NRBC x10^3 (test <0.01 See_Comment [Automated message] code = 5321661711) The syste m which generated this result transmitted ref erence range: 10*3/?L. The reference range was not used to interpr et this result as normal/abnormal . GRAN MAT (NEUT) % 53.6 % (test code = 770-8) IMM GRAN % (test 0.30 % code = 4726600554) LYMPH % (test code 35.7 % = 736-9) MONO % (test code 7.7 % = 5905-5) EOS % (test code = 2.4 % 713-8) BASO % (test code 0.3 % = 706-2) GRAN MAT 3.94 10*3/uL 1.88-7.09 x10^3(ANC) (test code = 6048315772) IMM GRAN x10^3 <0.03 0.00-0.06 (test code = 0763100258) LYMPH x10^3 (test 2.63 10*3/uL 1.32-3.29 code = 731-0) MONO x10^3 (test 0.57 10*3/uL 0.33-0.92 code = 742-7) EOS x10^3 (test 0.18 10*3/uL 0.03-0.39 code = 711-2) BASO x10^3 (test <0.03 0.01-0.07 code = 704-7) [facility]2021[facility]10 22:06:00 Test Item Value Reference Range Interpretation Comments APPEARANCE (test code = Cloudy Clear A 6884160631) COLOR (test code = Yellow Yellow 1603159576) PH (test code = 4.8-8.0 0775591155) SP GRAVITY (test code = 1.003-1.030 6709549391) GLU U QUAL (test code = Normal Normal 6668302331) BLOOD (test code = Negative Negative INTERFERE NCE FROM 3409231060) ASCORBIC ACID M AY CAUSE FALSE NEG ATIVE RESULT KETONES (test code = Negative Negative 9206800797) PROTEIN (test code = 30 mg/dL Negative A 2887-8) UROBILIN (test code = 2.0 mg/dL Normal A 6552378113) BILIRUBIN (test code = Negative Negative 3049000625) NITRITE (test code = Negative Negative 5352012868) LEUK ANA (test code = 25/uL Negative A 3698947913) RBC/HPF (test code = <1 See_Comment [Autom ated message] 5203126008) The system [employer] generated this result transmitted ref erence range: 0 - 3 HP F. The reference range was not used to int erpret this result as normal/abnormal . WBC/HPF (test code = See_Comment H [Autom ated message] 0646758893) The system [employer] generated this result transmitted ref erence range: 0 - 5 HP F. The reference range was not used to int erpret this result as normal/abnormal . BACTERIA (test code = Many Negative A 1388402638) MUCOUS (test code = Slight Negative LPF A 1401735520) AMORPHOUS (test code = Few Rare HPF A 6540141044) SQ EPITH (test code = HPF 9060037896) CA OXALATE (test code = See_Comment H [Au tomated message] 3808047160) The system [employer] generated this result transmitted ref erence range: <=1 HPF. The reference range was not used to int erpret this result as normal/abnormal . Lab Interpretation Abnormal (test code = 25462-3) [facility]"
[2021-04-11 21:30] LABS: Calcium Oxalate Crystals- Ur FEW (NONE SEEN); Urine Amorphous Sediment 2+ /HPF (NONE SEEN); Urine Bacteria 20-50 /HPF (<20)
--- NOTE | 2021-04-11 21:47 | ER ---
Nurse's Notes [facility] Name: Roxana Sanchez Age: 46 yrs Sex: Female : 1975 Arrival Date: 04/11/2021 Time: 18:12 Bed 13 Private MD: Diagnosis: UTI/ Urinary tract infection, site not specified Presentation: 04/11 18:44 Chief complaint: Patient states: was seen in [facility] ED for 'inflammation of my whole vg1 body' states thighs and neck are swollen and states 'theres blood in my urine and my pee is green at home'. States is also having diarrhea and SOB 'when I get in the sun'. Coronavirus screen: Vaccine status: Patient reports being unvaccinated. Client denies travel out of the [place] in the last 14 days. Ebola Screen: Patient negative for fever greater than or equal to 101.5 degrees Fahrenheit, and additional compatible Ebola Virus Disease symptoms. Initial Sepsis Screen: Does the patient meet any 2 criteria? No. Patient's initial sepsis screen is negative. Does the patient have a suspected source of infection? No. Patient's initial sepsis screen is negative. Risk Assessment: Do you want to hurt yourself or someone else? Patient reports no desire to harm self or others. Onset of symptoms was April 10, 2021. 18:44 Method Of Arrival: Ambulatory 1 18:44 Acuity: DELMI 3 vg1 Triage Assessment: 18:54 General: Appears in no apparent distress. uncomfortable, Behavior is calm, cooperative. vg1 Pain: Complains of pain in back, right leg and left leg. EENT: Throat is clear. 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 - Social history:: Smoking status: Patient denies any tobacco usage or history of. Screenin:51 Abuse screen: Denies threats or abuse. Nutritional screening: No deficits noted. vc1 Tuberculosis screening: No symptoms or risk factors identified. Fall Risk None identified. Assessment: 21:50 General: Appears in no apparent distress. uncomfortable, Behavior is calm, cooperative, vc1 appropriate for age. Pain:. Respiratory: Airway is patent Respiratory effort is even, unlabored, Breath sounds are clear. 21:56 Reassessment: Patient is alert, oriented x 3, equal unlabored respirations, skin bb warm/dry/pink. pt verbalized understanding of plan of care will follow-up with her PCP. Vital Signs: 18:44 BP 126 / 92; Pulse 86; Resp 16; Temp 97.2; Pulse Ox 100% ; Weight 90.72 kg; Height 5 vg1 ft. 4 in. (162.56 cm); Pain 6/10; 18:44 Body Mass Index 34.33 (90.72 kg, 162.56 cm) vg1 ED Course: 18:12 Patient arrived in ED. am2 18:48 Triage completed. vg1 18:54 Arm band placed on. vg1 20:07 Leda Al[facility]-C [facility] kb 20:07 Carmine Frost MD is Attending Physician. kb 20:52 Nanci Valderrama, ELIJAH is Primary Nurse. vc1 21:09 US Extremity Venous W Compression Rainer Sent. vc1 21:21 US Extremity Venous W Compression Rainer In Process Unspecified. EDMS 21:33 Chest Single View XRAY In Process Unspecified. EDMS 21:51 Patient has correct armband on for positive identification. vc1 21:51 No provider procedures requiring assistance completed. Patient did not have IV access vc1 during this emergency room visit. Administered Medications: No medications were administered Outcome: 21:47 Discharge ordered by . kb 21:51 Discharged to home ambulatory. vc1 21:51 Condition: good 21:56 Discharge instructions given to patient, Instructed on discharge instructions, follow bb up and referral plans. medication usage, Demonstrated understanding of instructions, follow-up care, medications, Prescriptions given X 1. 21:57 Patient left the ED. bb Signatures: Dispatcher [employer] EDMS Leda Alvarez FNP-C FNP-Ckb Ballard, Brenda, RN RN bb Moreno, Amanda am2 Kareen Stephenson RN RN vg1 Nanci Valderrama RN RN vc1 Corrections: (The following items were deleted from the chart) 18:54 18:53 PMHx: None; vg1 vg1
--- NOTE | 2021-04-11 21:47 | EDPHYS ---
Physician Documentation [facility] Name: Roxana Sanchez Age: 46 yrs Sex: Female : 1975 Arrival Date: 04/11/2021 Time: 18:12 Bed 13 Private MD: ED Physician Carmine Frost HPI: 04/11 21:46 This 46 yrs old Black Female presents to ER via Ambulatory with complaints of Sore kb Throat, Shortness Of Breath, Feet Swelling. 20:12 Pt reports swelling to thighs for 2 days. States she is very concerned about it because kb it hasn't gone down at all. Reports low back pain when urinating as well. States this has made her anxiety go up so she gets short of breath at times, but it goes away when she calms down. . 21:46 The patient presents with swelling. The complaints affect the medial aspect of right kb thigh and medial aspect of left thigh. Context: The problem was sustained at home, resulted from an unknown cause, the patient can fully bear weight, the patient is able to ambulate. Onset: The symptoms/episode began/occurred 2 day(s) ago. Modifying factors: The symptoms are alleviated by nothing. the symptoms are aggravated by nothing. Associated signs and symptoms: Pertinent positives: swelling, Pertinent negatives calf tenderness, fever, nausea, numbness, rash, tingling, vomiting, warmth, weakness. Treatment prior to arrival includes: no previous treatment. Severity of symptoms: At their worst the symptoms were mild, in the emergency department the symptoms are unchanged. The patient has not experienced similar symptoms in the past. The patient has not recently seen a physician. DIETARY AID: 18:54 LMP N/A - Hysterectomy vg1 Historical: - Allergies: 18:53 Vicodin; vg1 - Home Meds: 18:53 None [Active]; vg1 - PMHx: 18:54 Anxiety; Depressive disorder; vg1 - PSHx: 18:53 Hysterecotomy; section; vg1 - Immunization history:: Client reports having NOT received the Covid vaccine. - Social history:: Smoking status: Patient denies any tobacco usage or history of. ROS: 21:45 Constitutional: Negative for fever, chills, and weight loss. kb 21:45 Respiratory: Positive for shortness of breath. 21:45 : Positive for flank pain. 21:45 MS/extremity: Positive for swelling, of the medial aspect of right thigh and medial aspect of left thigh. 21:45 All other systems are negative. Exam: 21:46 Constitutional: This is a well developed, well nourished patient who is awake, alert, kb and in no acute distress. Head/Face: Normocephalic, atraumatic. ENT: Moist Mucous membranes Cardiovascular: Regular rate and rhythm with a normal S1 and S2. No gallops, murmurs, or rubs. No pulse deficits. Respiratory: Respirations even and unlabored. No increased work of breathing. Talking in full sentences Skin: Warm, dry with normal turgor. Normal color. MS/ Extremity: Pulses equal, no cyanosis. Neurovascular intact. Full, normal range of motion. Neuro: Awake and alert, GCS 15, oriented to person, place, time, and situation. Moves all extremities. Normal gait. Psych: Awake, alert, with orientation to person, place and time. Behavior, mood, and affect are within normal limits. Vital Signs: 18:44 BP 126 / 92; Pulse 86; Resp 16; Temp 97.2; Pulse Ox 100% ; Weight 90.72 kg; Height 5 vg1 ft. 4 in. (162.56 cm); Pain 6/10; 18:44 Body Mass Index 34.33 (90.72 kg, 162.56 cm) vg1 MDM: 20:07 Patient medically screened. kb 21:45 Data reviewed: vital signs, nurses notes. Data interpreted: Pulse oximetry: on room air kb is 100 %. Interpretation: normal. Counseling: I had a detailed discussion with the patient and/or guardian regarding: the historical points, exam findings, and any diagnostic results supporting the discharge/admit diagnosis, lab results, radiology results, the need for outpatient follow up, a family practitioner, to return to the emergency department if symptoms worsen or persist or if there are any questions or concerns that arise at home. 21:53 ED course: US negative for DVT. Pulses intact to lower extremities. No redness, warmth, kb obvious swelling noted on exam. . 04/11 20:12 Order name: Urine Microscopic Only; Complete Time: 21:34 kb 04/11 21:31 Order name: Urine Culture EDMS 04/11 20:12 Order name: US Extremity Venous W Compression Rainer kb 04/11 20:12 Order name: Urine Dipstick-Ancillary (obtain specimen); Complete Time: 21:09 kb 04/11 20:28 Order name: Chest Single View XRAY kb Administered Medications: No medications were administered Disposition: 23:45 Co-signature as Attending Physician, Carmine Frost MD. pkl Disposition Summary: 04/11/21 21:47 Discharge Ordered Location: Home kb Condition: Stable kb Diagnosis - UTI/ Urinary tract infection, site not specified kb Followup: kb - With: Emergency Department - When: As needed - Reason: Worsening of condition Followup: kb - With: Private Physician - When: 2 - 3 days - Reason: Recheck today's complaints, Continuance of care, Re-evaluation by your physician Discharge Instructions: - Discharge Summary Sheet kb - Urinary Tract Infection, Adult, [id number] kb Forms: - Medication Reconciliation Form kb - Thank You Letter kb - Antibiotic Education kb - Prescription Opioid Use kb Prescriptions: - Macrobid 100 mg Oral Capsule - take 1 capsule by ORAL route every 12 hours for 10 days; 20 capsule; Refills: kb 0, Product Selection Permitted Signatures: Dispatcher [employer] Leda Almonte, PLANT HEALTH MANAGER-C PLANT HEALTH MANAGER-Carmine King MD MD pkl Kareen Stephenson, RN RN vg1 Corrections: (The following items were deleted from the chart) 18:54 18:53 PMHx: None; vg1 vg1
--- NOTE | 2021-04-11 22:17 | RAD REPORT ---
EXAM DESCRIPTION: US - Extrem Venous W Compress Rainer - 04/11/2021 9:21 pm CLINICAL HISTORY: SWELLING, bilateral leg COMPARISON: None. TECHNIQUE: Real-time sonographic evaluation of the bilateral lower extremity common femoral, superfi cial femoral, popliteal and posterior tibial veins was performed. FINDINGS: Normal compressibility, flow augmentation, phasic flow and spontaneous flow are identified in the left and right lower extremity common femoral, superficial femoral, popliteal and posterior t ibial veins. No intraluminal filling defects seen. IMPRESSION: No DVT in either lower extremity.
--- NOTE | 2021-04-11 22:21 | RAD REPORT ---
EXAM DESCRIPTION: RAD - Chest Single View - 04/11/2021 9:33 pm CLINICAL HISTORY: Dyspnea;Swelling COMPARISON: Portable April 06 TECHNIQUE: AP portable chest image was obtained 04/11/2021 9:33 pm . FINDINGS: Lungs are clear. Slight increase in bibasilar lung markings believed be artifact of shallo w inspiration. Heart and vasculature are normal. No measurable pleural effusion and no pneumothorax. No acute bony abnormality seen. No acute aortic findings suspected. IMPRESSION: No acute cardiopulmonary process.
[2021-04-11 23:05] VITALS: BP 126/92; TEMP 97.2; O2SAT 100
== END 2021-04-11 21:57 | disposition home or self-care (01) ==
LOC: ER 18:12
DX: N39.0 Urinary tract infection, site not specified (principal); Z88.5 Allergy status to narcotic agent
CPT/HCPCS: 71045; 81015; 87086; 87088; 93970; 99283

== ENCOUNTER 2021-09-21 13:42 | Emergency (ER) | payer OTHER, SELFPAY ==
[2021-09-21 14:37] LABS: Urine Blood Trace-intact (Negative); Urine Glucose Negative (Negative); Urine Protein Negative (Negative)
[2021-09-21 14:42] LABS: Absolute Lymphocytes (CBC) 2.1 K/uL (0.7-4.9); Hematocrit 36.4 % (36.0-45.0); Lymphocytes % 30.8 % (15.3-44.8)
[2021-09-21 14:58] LABS: Albumin 3.3 g/dL (3.4-5.0); Bilirubin Total 0.4 mg/dL (0.2-1.0); Potassium 3.5 mmol/L (3.5-5.1); Protein, Total 8.5 g/dL (6.4-8.2)
--- NOTE | 2021-09-21 14:58 | RAD REPORT ---
EXAM DESCRIPTION: US - Abdomen Exam Limited - 09/21/2021 2:26 pm CLINICAL HISTORY: Abdominal pain. COMPARISON: None. FINDINGS: The gallbladder wall is not thickened. A gallstone is not seen. The biliary tree is normal caliber. IMPRESSION: Unremarkable gallbladder ultrasound.
[2021-09-21] MEDS ORDERED: NA CHLORIDE 0.9% 1,000 ML ONE (15:31)
--- NOTE | 2021-09-21 15:42 | RAD REPORT ---
EXAM DESCRIPTION: CT - Stone Protocol - 09/21/2021 3:27 pm CLINICAL HISTORY: Abdominal pain. Right leg pain COMPARISON: 2019 TECHNIQUE: Computed axial tomography of the abdomen pelvis was obtained without oral or IV contrast. Lack of IV and oral contrast limits evaluation of solid organs, bowel, appendix and vessels. Coronal reformatted images were obtained and reviewed. All CT scans are performed using dose optimization technique as appropriate and may include automated exposure control or mA/KV adjustment according to patient size. FINDINGS: Several small left renal calculi. No hydronephrosis. A right renal calculus is not seen. An ureteral calculus is not noted. A bladder calculus is not pres ent. The liver, spleen, pancreas and adrenals appear grossly normal There is no evidence of diverticulitis. Appendix not clearly seen. No stranding adjacent to the cecum IMPRESSION: Nonobstructing left renal calculi
--- NOTE | 2021-09-21 15:45 | EDPHYS ---
Physician Documentation [facility] Name: Roxana Sanchez Age: 46 yrs Sex: Female : 1975 Arrival Date: 09/21/2021 Time: 13:46 Bed 7 Private MD: MAGALIE Physician Shahbaz Corado HPI: 09/21 15:17 This 46 yrs old Black Female presents to ER via Ambulatory with complaints of Flank kb Pain, Back Pain, Abdominal Pain. 15:17 The patient presents with abdominal pain in the right upper quadrant. Onset: The kb symptoms/episode began/occurred 3 day(s) ago. The symptoms radiate to the right flank. Associated signs and symptoms: none. The symptoms are described as intermittent. Modifying factors: The symptoms are alleviated by nothing, the symptoms are aggravated by nothing. Severity of pain: At its worst the pain was moderate in the emergency department the pain has resolved. The patient has not experienced similar symptoms in the past. The patient has not recently seen a physician. Pt reports intermittent RUQ pain that radiates to right flank. Pain started 3 days ago. Pt has no pain at this time. Denies any other symptoms. 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 - Social history:: Smoking status: Patient denies any tobacco usage or history of. ROS: 15:16 Constitutional: Negative for fever, chills, and weight loss. kb 15:16 Abdomen/GI: Positive for abdominal pain, Negative for nausea, vomiting, and diarrhea. 15:16 Back: Positive for flank pain, on the right. 15:16 All other systems are negative. Exam: 15:16 Constitutional: This is a well developed, well nourished patient who is awake, alert, kb and in no acute distress. Head/Face: Normocephalic, atraumatic. ENT: Moist Mucous membranes Cardiovascular: Regular rate and rhythm with a normal S1 and S2. No gallops, murmurs, or rubs. No pulse deficits. Respiratory: Respirations even and unlabored. No increased work of breathing. Talking in full sentences Abdomen/GI: Soft, non-tender. No distention Skin: Warm, dry with normal turgor. Normal color. MS/ Extremity: Pulses equal, no cyanosis. Neurovascular intact. Full, normal range of motion. Neuro: Awake and alert, GCS 15, oriented to person, place, time, and situation. Moves all extremities. Normal gait. Psych: Awake, alert, with orientation to person, place and time. Behavior, mood, and affect are within normal limits. Vital Signs: 13:49 BP 125 / 76; Pulse 108; Resp 16; Temp 97.0; Pulse Ox 98% ; Weight 88.45 kg; Height 5 ap3 ft. 5 in. (165.10 cm); 13:49 Body Mass Index 32.45 (88.45 kg, 165.10 cm) ap3 MDM: 13:49 Patient medically screened. kb 15:16 Data reviewed: vital signs, nurses notes. Data interpreted: Pulse oximetry: on room air kb is 98 %. Interpretation: normal. Counseling: I had a detailed discussion with the patient and/or guardian regarding: the historical points, exam findings, and any diagnostic results supporting the discharge/admit diagnosis, lab results, radiology results, the need for outpatient follow up, a family practitioner, to return to the emergency department if symptoms worsen or persist or if there are any questions or concerns that arise at home. 09/21 14:07 Order name: CBC with Diff; Complete Time: 14:48 kb 09/21 14:07 Order name: CMP; Complete Time: 15:03 kb 09/21 14:07 Order name: Lipase; Complete Time: 15:03 kb 09/21 14:07 Order name: Abdomen Limited US; Complete Time: 15:03 kb 09/21 14:37 Order name: Urine Dipstick-Ancillary; Complete Time: 14:40 EDMS 09/21 15:04 Order name: CT Stone Protocol; Complete Time: 15:44 kb 09/21 14:07 Order name: IV Saline Lock; Complete Time: 14:33 kb 09/21 14:07 Order name: Labs collected and sent; Complete Time: 14:33 kb 09/21 14:07 Order name: Urine Dipstick-Ancillary (obtain specimen); Complete Time: 14:33 kb Administered Medications: 15:54 Drug: NS 0.9% 1000 ml Route: IV; Rate: 1000 ml; Site: right antecubital; ss 16:09 Follow up: IV Status: dc'd due to discharge ss Disposition Summary: 09/21/21 15:44 Discharge Ordered Location: Home kb Condition: Stable kb Diagnosis - Upper abdominal pain, unspecified kb Followup: kb - With: Emergency Department - When: As needed - Reason: Worsening of condition Followup: kb - With: Private Physician - When: 2 - 3 days - Reason: Recheck today's complaints, Continuance of care, Re-evaluation by your physician Discharge Instructions: - Discharge Summary Sheet kb - Abdominal Pain, Adult, [id number] kb Forms: - Medication Reconciliation Form kb - Thank You Letter kb - Antibiotic Education kb - Prescription Opioid Use kb - Work release form ld1 Signatures: Dispatcher [employer] Leda Almonte, ARMAMENT REPAIRER-C ARMAMENT REPAIRER-Cami Bettencourt, RN RN ss Kavitha Wilson RN RN ap3
--- NOTE | 2021-09-21 15:45 | ER ---
Nurse's Notes [facility] Name: Roxana Sanchez Age: 46 yrs Sex: Female : 1975 Arrival Date: 09/21/2021 Time: 13:46 Bed 7 Private MD: Diagnosis: Upper abdominal pain, unspecified Presentation: 09/21 13:49 Chief complaint: Patient states: she has been having intermittent pain on her right ap3 side which radiates to her right lower back. Patient reports the pain gets worse when she drinks cold water. Patient denies any difficulty urinating. Coronavirus screen: At this time, the client does not indicate any symptoms associated with coronavirus-19. Ebola Screen: No symptoms or risks identified at this time. Initial Sepsis Screen: Does the patient meet any 2 criteria? No. Patient's initial sepsis screen is negative. Does the patient have a suspected source of infection? No. Patient's initial sepsis screen is negative. Risk Assessment: Do you want to hurt yourself or someone else? Patient reports no desire to harm self or others. Onset of symptoms was September 19, 2021. 13:49 Method Of Arrival: Ambulatory ap3 13:49 Acuity: DELMI 3 ap3 Triage Assessment: 13:52 General: Appears in no apparent distress. Behavior is calm, cooperative, appropriate ap3 for age. General: Reports chills for 2-3 days. Pain: Complains of pain in low back area, right flank. Neuro: Level of Consciousness is awake, alert, obeys commands, Oriented to person, place, time, situation, Gait is steady, Speech is normal. Cardiovascular: Patient's skin is warm and dry. Respiratory: Airway is patent Respiratory effort is even, unlabored. GI: Patient currently denies nausea, vomiting. Musculoskeletal: Range of motion: intact in all extremities. DUDE WRANGLER: 13:53 LMP N/A - Hysterectomy ap3 Historical: - Allergies: 13:52 Vicodin; ap3 - PMHx: 13:52 Anxiety; depressive disorder; ap3 - PSHx: 13:52 section; Hysterecotomy; ap3 - Immunization history:: Client reports having NOT received the Covid vaccine. - Social history:: Smoking status: Patient denies any tobacco usage or history of. Screenin:53 Abuse screen: Denies threats or abuse. Nutritional screening: No deficits noted. ap3 Tuberculosis screening: No symptoms or risk factors identified. 16:09 Fall Risk None identified. ss Assessment: 14:30 General: Appears in no apparent distress. comfortable, Behavior is calm, cooperative, ss Denies fever, feeling ill, fatigue. Neuro: Level of Consciousness is awake, alert, obeys commands, Oriented to person, place, time, situation. Respiratory: Airway is patent Trachea midline Respiratory effort is even, unlabored, Respiratory pattern is regular, symmetrical. GI: Abdomen is round non-distended, Abd is soft and non tender X 4 quads. Reports R lower quadrant pain/ R flank pain Patient currently denies diarrhea, nausea, vomiting. Musculoskeletal: Circulation, motion, and sensation intact. Range of motion: intact in all extremities, Swelling absent. 15:26 Reassessment: PT in US at this time. Will start IV fluids once she returns. ss 16:09 Reassessment: Patient appears in no apparent distress at this time. Patient and/or ss family updated on plan of care and expected duration. Pain level reassessed. Patient is alert, oriented x 3, equal unlabored respirations, skin warm/dry/pink. Vital Signs: 13:49 BP 125 / 76; Pulse 108; Resp 16; Temp 97.0; Pulse Ox 98% ; Weight 88.45 kg; Height 5 ap3 ft. 5 in. (165.10 cm); 13:49 Body Mass Index 32.45 (88.45 kg, 165.10 cm) ap3 ED Course: 13:46 Patient arrived in ED. ja2 13:47 Leda Alvarez [facility]-C [facility]. kb 13:47 Shahbaz Corado MD is Attending Physician. kb 13:52 Triage completed. ap3 13:53 Arm band placed on right wrist. ap3 13:58 Cami Pathak, ELIJAH is Primary Nurse. ss 14:27 Abdomen Limited US In Process Unspecified. EDMS 14:30 Initial lab(s) drawn, by me, sent to lab. Inserted saline lock: 22 gauge in right aa5 antecubital area, using aseptic technique. Blood collected. 15:29 CT Stone Protocol In Process Unspecified. EDMS 16:09 Patient has correct armband on for positive identification. ss 16:10 No provider procedures requiring assistance completed. IV discontinued, intact, ss bleeding controlled, No redness/swelling at site. Pressure dressing applied. Administered Medications: 15:54 Drug: NS 0.9% 1000 ml Route: IV; Rate: 1000 ml; Site: right antecubital; ss 16:09 Follow up: IV Status: dc'd due to discharge ss Medication: 16:09 VIS not applicable for this client. ss Outcome: 15:44 Discharge ordered by . kb 16:10 Discharged to home ambulatory, with significant other. ss 16:10 Condition: good 16:10 Discharge instructions given to patient, family, Instructed on discharge instructions, follow up and referral plans. Demonstrated understanding of instructions, follow-up care. 16:10 Patient left the ED. ss Signatures: Dispatcher [employer] EDMS Leda Alvarez, DYE TUB OPERATOR-C DYE TUB OPERATOR-Janice Collier, RN RN aa5 Cami Pathak RN RN ss Kavitha Wilson RN RN ap3 Arlin Mcelroy
[2021-09-21 16:51] VITALS: BP 125/76; TEMP 97; O2SAT 98
== END 2021-09-21 16:10 | disposition home or self-care (01) ==
LOC: ER 13:42
DX: R10.11 Right upper quadrant pain (principal); Z88.5 Allergy status to narcotic agent
CPT/HCPCS: 36415; 74176; 76377; 76705; 80053; 81003; 83690; 85025; J7030

== ENCOUNTER 2021-09-29 02:59 | Emergency (ER) | payer SELFPAY ==
[2021-09-29] MEDS ORDERED: MAGNES/ALUMIN/SIMET 30ML UCUP ONE (03:55)
[2021-09-29] MEDS ORDERED: LIDOCAINE VISCOUS 2% SOLN 15 ML UDC ONE (03:55)
[2021-09-29 04:15] LABS: Absolute Lymphocytes (CBC) 2.2 K/uL (0.7-4.9); Hematocrit 38.3 % (36.0-45.0); MCV 87.4 fL (80-100); MPV 8.4 fL (7.6-11.3); RBC Red Blood Cell Count 4.38 M/uL (3.86-4.86)
[2021-09-29 04:37] LABS: ALT/SGPT 29 U/L (12-78); AST/SGOT 20 U/L (15-37); Albumin 3.4 g/dL (3.4-5.0); Alkaline Phosphatase 102 U/L (45-117); BUN Blood Urea Nitrogen 12 mg/dL (7-18); Bicarbonate 25 mmol/L (21-32); Bilirubin Total 0.3 mg/dL (0.2-1.0); Glomerular Filtration Rate 84 ml/min (=/>90); Glucose Level 125 mg/dL (74-106); NT PRO-BNP 17 pg/mL (<125); Potassium 3.8 mmol/L (3.5-5.1); Protein, Total 9.1 g/dL (6.4-8.2); Sodium Level 137 mmol/L (136-145); Troponin High Sensitivity 4.9 pg/mL (<58.9)
[2021-09-29 04:45] LABS: Bilirubin Direct < 0.1 mg/dL (0-0.2)
--- NOTE | 2021-09-29 06:36 | EDPHYS ---
Physician Documentation [facility] Name: Roxana Sanchez Age: 46 yrs Sex: Female : 1975 Arrival Date: 09/29/2021 Time: 03:03 Bed 17 Private MD: ED Physician Missael Fraser HPI: 09/29 03:30 This 46 yrs old Black Female presents to ER via EMS with complaints of sob. rn 03:30 The patient has shortness of breath at rest. Onset: The symptoms/episode began/occurred rn last night. Duration: The symptoms are intermittent. The patient's shortness of breath is aggravated by. The patient's shortness of breath is aggravated by nothing, is alleviated by heating pad. Associated signs and symptoms: Pertinent negatives: chest pain, non-productive cough, productive cough, diaphoresis, dizziness, fever, hemoptysis. Severity of symptoms: At their worst the symptoms were moderate in the emergency department the symptoms have improved. It is unknown whether or not the patient has had similar symptoms in the past. The patient has not recently seen a physician. Pt denies chest or abd pain. Reports sob, began last night, assoc with tingling in back and improves with heating pad. NO cough/fever/vomiting.. 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 - Social history:: Smoking status: Patient denies any tobacco usage or history of. - Family history:: not pertinent. - Hospitalizations: : No recent hospitalization is reported. ROS: 03:30 Constitutional: Negative for fever, chills, and weight loss, Eyes: Negative for injury, rn pain, redness, and discharge, Neck: Negative for injury, pain, and swelling, Cardiovascular: Negative for chest pain, palpitations, and edema, Respiratory: Negative for cough, wheezing, and pleuritic chest pain, Abdomen/GI: Negative for abdominal pain, nausea, vomiting, diarrhea, and constipation, Back: Negative for injury and pain, MS/Extremity: Negative for injury and deformity, Skin: Negative for injury, rash, and discoloration, Neuro: Negative for headache, weakness, and seizure. Exam: 03:30 Constitutional: This is a well developed, well nourished patient who is awake, alert, rn tearful and hyperventilating Head/Face: Normocephalic, atraumatic. Cardiovascular: Regular rate and rhythm. No pulse deficits. Respiratory: Mild tachypnea, no retractions, no wheezing Abdomen/GI: Soft, non-tender Back: No spinal tenderness. No costovertebral tenderness. Full range of motion. Skin: Warm, dry MS/ Extremity: Pulses equal, no cyanosis. Neuro: Awake and alert, GCS 15 Vital Signs: 03:07 BP 149 / 93; Pulse 67; Resp 20; Temp 98.5(O); Pulse Ox 100% on R/A; Weight 88.45 kg ll3 (R); Height 5 ft. 5 in. (165.10 cm) (R); Pain 0/10; 05:31 BP 112 / 70; Pulse 57; Resp 17; Pulse Ox 100% on R/A; ll3 06:30 BP 136 / 80; Pulse 59; Resp 16; Pulse Ox 100% on R/A; ll3 03:07 Body Mass Index 32.45 (88.45 kg, 165.10 cm) ll3 MDM: 03:03 Patient medically screened. rn 06:34 Differential diagnosis: Anxiety Reaction Myocardial Infarction pneumonia, Pneumothorax rn pulmonary edema, Pulmonary Embolism. Data reviewed: vital signs, nurses notes, lab test result(s), EKG, radiologic studies, CT scan, plain films, and as a result, I will discharge patient. Counseling: I had a detailed discussion with the patient and/or guardian regarding: the historical points, exam findings, and any diagnostic results supporting the discharge/admit diagnosis, lab results, radiology results, the need for outpatient follow up, to return to the emergency department if symptoms worsen or persist or if there are any questions or concerns that arise at home. Response to treatment: the patient's symptoms have markedly improved after treatment, and as a result, I will discharge patient. Special discussion: I discussed with the patient/guardian in detail that at this point there is no indication for admission to the hospital. It is understood, however, that if the symptoms persist or worsen the patient needs to return immediately for re-evaluation. Based on the history and exam findings, there is no indication for further emergent testing or inpatient evaluation. I discussed with the patient/guardian the need to see the primary care provider for further evaluation of the symptoms. ED course: Pt improved, sleeping comfortably without complaints, labs and CT PE neg. Trop neg. Stable vitals. Improved with GI cocktail. States is ready to go home. Will dc home with return precautions.. 09/29 03:06 Order name: Basic Metabolic Panel; Complete Time: 04:46 rn 09/29 03:06 Order name: CBC with Diff; Complete Time: 04:46 rn 09/29 03:06 Order name: LFT's; Complete Time: 04:46 rn 09/29 03:06 Order name: NT PRO-BNP; Complete Time: 04:46 rn 09/29 03:06 Order name: Troponin HS; Complete Time: 04:46 rn 09/29 03:06 Order name: SARS-COV-2 RT PCR (Document "Date of Onset" if Symptomatic); Complete Time: rn 05:06 09/29 03:06 Order name: XRAY Chest (1 view) rn 09/29 03:06 Order name: EKG; Complete Time: 03:07 rn 09/29 03:06 Order name: Cardiac monitoring; Complete Time: 03:55 rn 09/29 03:06 Order name: EKG - Nurse/Tech; Complete Time: 03:55 rn 09/29 03:06 Order name: IV Saline Lock; Complete Time: 03:55 rn 09/29 03:06 Order name: Labs collected and sent; Complete Time: 03:55 rn 09/29 03:06 Order name: CT Chest For PE Angio rn 09/29 03:06 Order name: O2 Per Protocol; Complete Time: 03:55 rn 09/29 03:06 Order name: O2 Sat Monitoring; Complete Time: 03:55 rn Administered Medications: 03:56 Drug: GI Cocktail without - (Maalox Suspension 30 ml, Lidocaine Liquid 2 % 15 ll3 ml) Route: PO; 06:55 Follow up: Response: No adverse reaction ll3 Disposition Summary: 09/29/21 06:35 Discharge Ordered Location: Home rn Problem: new rn Symptoms: have improved rn Condition: Stable rn Diagnosis - Dyspnea, unspecified rn Followup: rn - With: Private Physician - When: As needed - Reason: Recheck today's complaints, Re-evaluation by your physician Discharge Instructions: - Discharge Summary Sheet rn - Gastroesophageal Reflux Disease, Adult rn - Shortness of Breath, Adult rn Forms: - Medication Reconciliation Form rn - Thank You Letter rn - Antibiotic pattern keeper - Prescription Opioid Use rn Signatures: Dispatcher [employer] Missael Feliciano MD MD rn Loubet, Lynsea RN RN ll3
--- NOTE | 2021-09-29 06:36 | ER ---
Nurse's Notes [facility] Name: Roxana Sanchez Age: 46 yrs Sex: Female : 1975 Arrival Date: 09/29/2021 Time: 03:03 Bed 17 Private MD: Diagnosis: Dyspnea, unspecified Presentation: 09/29 03:07 Chief complaint: EMS states: Toned out for tingling in back and SOB since yesterday, pt ll3 denies any pain, pt c/o of gassiness. Coronavirus screen: Vaccine status: Patient reports being unvaccinated. shortness of breath. Ebola Screen: No symptoms or risks identified at this time. Initial Sepsis Screen: Does the patient meet any 2 criteria? No. Patient's initial sepsis screen is negative. Does the patient have a suspected source of infection? No. Patient's initial sepsis screen is negative. Risk Assessment: Do you want to hurt yourself or someone else? Patient reports no desire to harm self or others. Onset of symptoms was September 28, 2021. 03:07 Method Of Arrival: EMS: [facility] 3 03:07 Acuity: DELMI 3 ll3 Triage Assessment: 03:09 General: Appears uncomfortable, Behavior is calm, cooperative. Pain: Denies pain. ll3 Neuro: Level of Consciousness is awake, alert, obeys commands, Oriented to person, place, time, situation. Respiratory: Reports shortness of breath at rest on exertion since yesterday Respiratory effort is even, unlabored, Respiratory pattern is regular, symmetrical. Derm: Skin is pink, warm \\T\\ dry. Musculoskeletal: Circulation, motion, and sensation intact. Reports Tingling in back. 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 - Social history:: Smoking status: Patient denies any tobacco usage or history of. - Family history:: not pertinent. - Hospitalizations: : No recent hospitalization is reported. Screenin:31 Abuse screen: Denies threats or abuse. Nutritional screening: No deficits noted. ll3 Tuberculosis screening: No symptoms or risk factors identified. Fall Risk No fall in past 12 months (0 pts). No secondary diagnosis (0 pts). IV access (20 points). Ambulatory Aid- None/Bed Rest/Nurse Assist (0 pts). Gait- Normal/Bed Rest/Wheelchair (0 pts) Mental Status- Oriented to own ability (0 pts). Total Markham Fall Scale indicates No Risk (0-24 pts). Assessment: 03:10 General: See triage assessment. ll3 04:00 Reassessment: No changes from previously documented assessment. Patient and/or family ll3 updated on plan of care and expected duration. Pain level reassessed. Patient is alert, oriented x 3, equal unlabored respirations, skin warm/dry/pink. 05:00 Reassessment: No changes from previously documented assessment. Patient and/or family ll3 updated on plan of care and expected duration. Pain level reassessed. Patient is alert, oriented x 3, equal unlabored respirations, skin warm/dry/pink. 06:56 Reassessment: No changes from previously documented assessment. Patient and/or family ll3 updated on plan of care and expected duration. Pain level reassessed. Patient is alert, oriented x 3, equal unlabored respirations, skin warm/dry/pink. Vital Signs: 03:07 BP 149 / 93; Pulse 67; Resp 20; Temp 98.5(O); Pulse Ox 100% on R/A; Weight 88.45 kg ll3 (R); Height 5 ft. 5 in. (165.10 cm) (R); Pain 0/10; 05:31 BP 112 / 70; Pulse 57; Resp 17; Pulse Ox 100% on R/A; ll3 06:30 BP 136 / 80; Pulse 59; Resp 16; Pulse Ox 100% on R/A; ll3 03:07 Body Mass Index 32.45 (88.45 kg, 165.10 cm) ll3 ED Course: 03:03 Patient arrived in ED. rn 03:03 Missael Fraser MD is Attending Physician. rn 03:09 Triage completed. ll3 03:09 Arm band placed on Patient placed in an exam room, on a stretcher, on pulse oximetry. ll3 03:26 XRAY Chest (1 view) In Process Unspecified. EDMS 03:56 SARS-COV-2 RT PCR (Document "Date of Onset" if Symptomatic) Sent. ll3 05:22 CT Chest For PE Angio In Process Unspecified. EDNY 05:28 Jerry Bustos, RN is Primary Nurse. ll3 05:31 Patient has correct armband on for positive identification. Bed in low position. Call ll3 light in reach. Side rails up X 1. 06:57 No provider procedures requiring assistance completed. IV discontinued, intact, ll3 bleeding controlled, No redness/swelling at site. Pressure dressing applied. Administered Medications: 03:56 Drug: GI Cocktail without - (Maalox Suspension 30 ml, Lidocaine Liquid 2 % 15 ll3 ml) Route: PO; 06:55 Follow up: Response: No adverse reaction ll3 Medication: 06:57 VIS not applicable for this client. ll3 Outcome: 06:35 Discharge ordered by . rn 06:57 Discharged to home ambulatory. ll3 06:57 Condition: stable 06:57 Discharge instructions given to patient, Instructed on discharge instructions, follow up and referral plans. Demonstrated understanding of instructions, follow-up care. 06:58 Patient left the ED. ll3 Signatures: Dispatcher [employer] EDNY Missael Fraser MD MD rn Loubet, Lynsea, RN RN ll3
[2021-09-29 08:13] VITALS: TEMP 98.5; O2SAT 100
[2021-09-29 08:16] VITALS: BP 136/80
--- NOTE | 2021-09-29 13:43 | RAD REPORT ---
EXAM DESCRIPTION: CT - Chest For Pe Angio - 09/29/2021 6:36 am COMPARISON: None. CLINICAL HISTORY: [facility] eval for pulmonary embolism, dyspnea, back pain TECHNIQUE: CT images through the chest with IV contrast using the pulmonary embolus protocol. Multip lanar reformats. MIPS reformats are provided. Automated exposure control was utilized on this exami nation as a dose lowering technique. FINDINGS: Pulmonary arteries and vascular: Diagnostic quality bolus. No filling defects. Heart and mediastinum: Heart size is normal. No lymphadenopathy. Thyroid gland: Visualized portions are normal. Lungs: Clear. Airways: No filling defects. No bronchiectasis. Pleura: No pneumothorax. No significant pleural effusion. Subphrenic structures: Within normal limits. Musculoskeletal and soft tissues: Within normal limits for age. IMPRESSION: CHEST IMPRESSION: No evidence of pulmonary embolus or other acute chest process. Electronically signed by: Jeremiah Dale MD 09/29/2021 6:06 AM CDT Due to temporary technical issues with the PACS/Fluency reporting system, reports are being signed by the in house radiologist without review as a courtesy to ensure prompt reporting. The interpreting r adiologist is fully responsible for the content of the report.
--- NOTE | 2021-09-29 13:50 | EKG ---
Test Date: 2021-09-29 Test Time: 03:35:55 Advertising Teacher: NATTY MEASUREMENT RESULTS: Intervals: Rate: 67 [place]: 180 QRSD: 96 QT: 426 QTc: 450 [place]: P: 27 [place]: 180 QRS: -29 T: 62 INTERPRETIVE STATEMENTS: Normal sinus rhythm Nonspecific T wave abnormality Abnormal ECG Compared to ECG 04/06/2021 03:25:22 T-wave abnormality now present Myocardial infarct finding no longer present Electronically Signed On 09-29-21 13:50:11 CDT by Noe Thorne
--- NOTE | 2021-09-29 14:16 | RAD REPORT ---
EXAM DESCRIPTION: RAD - Chest Single View - 09/29/2021 3:25 am CLINICAL HISTORY: 46 years Female, DYSPNEA COMPARISON: None. TECHNIQUE: Single portable x-ray view of the chest performed on 09/29/2021 at 3:18 AM FINDINGS: The lungs are well expanded and are clear. There is no evidence of a pneumothorax. The rad iograph is lordotic in position. The cardiac silhouette is normal in size and configuration. The mediastinal contours are normal. No acute osseous abnormality is identified. No acute soft tissue abnormalities are seen. Lines and tubes: None. Free air: None IMPRESSION: No evidence of acute intrathoracic disease. The radiograph is lordotic in position. Electronically signed by: Joan Hassan DO 09/29/2021 3:54 AM CDT Due to temporary technical issues with the PACS/Fluency reporting system, reports are being signed by the in house radiologist without review as a courtesy to ensure prompt reporting. The interpreting r adiologist is fully responsible for the content of the report.
== END 2021-09-29 06:58 | disposition home or self-care (01) ==
LOC: ER 02:59
DX: R06.00 Dyspnea, unspecified (principal); Z88.5 Allergy status to narcotic agent
CPT/HCPCS: 36415; 71045; 71275; 80048; 80076; 83880; 84484; 85025; 93005; Q9967; U0003

== ENCOUNTER 2021-10-02 18:28 | Emergency (ER) | payer SELFPAY ==
[2021-10-02 19:39] LABS: Hematocrit 38.7 % (36.0-45.0); Lymphocytes % 32.8 % (15.3-44.8); MCV 88.2 fL (80-100); MPV 8.3 fL (7.6-11.3); RBC Red Blood Cell Count 4.38 M/uL (3.86-4.86)
[2021-10-02 19:41] LABS: Potassium 3.8 mmol/L (3.5-5.1); Troponin High Sensitivity 4.5 pg/mL (<58.9)
[2021-10-02 19:54] LABS: Urine Bacteria >50 /HPF (<20)
--- NOTE | 2021-10-02 20:46 | RAD REPORT ---
EXAM DESCRIPTION: RAD - Chest Single View - 10/02/2021 8:07 pm CLINICAL HISTORY: Chest pain Chest pain. COMPARISON: Chest Single View dated 09/29/2021; Chest Single View dated 04/11/2021; Chest Single View d ated 04/06/2021; Chest Single View dated 03/29/2021 FINDINGS: Portable technique limits examination quality. The lungs are grossly clear. The heart is normal in size. No displaced fractures. IMPRESSION: No acute intrathoracic process suspected.
--- NOTE | 2021-10-02 20:59 | EDPHYS ---
Physician Documentation [facility] Name: Roxana Sanchez Age: 46 yrs Sex: Female : 1975 Arrival Date: 10/02/2021 Time: 18:32 Bed 13 Private MD: ED Physician HPI: 10/03 01:01 This 46 yrs old Black Female presents to ER via EMS with complaints of Chest Pain, kb Shortness Of Breath. 01:01 The patient has shortness of breath at rest. Onset: The symptoms/episode began/occurred kb 10 day(s) ago. Duration: The symptoms are continuous. The patient's shortness of breath has no apparent modifying factors. Associated signs and symptoms: Pertinent positives: chest pain. Severity of symptoms: At their worst the symptoms were mild moderate in the emergency department the symptoms are unchanged. The patient has not experienced similar symptoms in the past. The patient has been recently seen by a physician:. Pt reports she has had chest pain with breathing, shortness of breath, urinary frequency and right flank pain for 10 days. Was seen at [place] [facility] for this on 09/24/21 and sent home with muscle relaxers. States she is concerned she has pneumonia so she wanted to get checked for that. CT abd/pelvis report reviewed from [place] [facility] visit showing no acute findings in abd. . 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 - Social history:: Smoking status: Smoking status: Patient reports the use of cigarette tobacco products, Patient denies any tobacco usage or history of. Patient/guardian denies using alcohol. ROS: 10/03 00:57 Constitutional: Negative for fever, chills, and weight loss. kb Cardiovascular: Positive for chest pain, with cough. Respiratory: Positive for shortness of breath. : Positive for flank pain, urinary frequency. All other systems are negative. Exam: 00:58 Constitutional: This is a well developed, well nourished patient who is awake, alert, kb and in no acute distress. Head/Face: Normocephalic, atraumatic. ENT: Moist Mucous membranes Cardiovascular: Regular rate and rhythm with a normal S1 and S2. No gallops, murmurs, or rubs. No pulse deficits. Respiratory: Respirations even and unlabored. No increased work of breathing. Talking in full sentences Abdomen/GI: Soft, non-tender. No distention Skin: Warm, dry with normal turgor. Normal color. MS/ Extremity: Pulses equal, no cyanosis. Neurovascular intact. Full, normal range of motion. Neuro: Awake and alert, GCS 15, oriented to person, place, time, and situation. Moves all extremities. Normal gait. Psych: Awake, alert, with orientation to person, place and time. Behavior, mood, and affect are within normal limits. Vital Signs: 10/02 18:35 BP 119 / 76; Pulse 95; Resp 15; Temp 98.9; Pulse Ox 100% on R/A; Pain 7/10; eh3 19:37 BP 104 / 84; Pulse 83; Resp 15; Pulse Ox 98% on R/A; eh3 20:19 BP 108 / 79; Pulse 80; Resp 20; Pulse Ox 98% on R/A; bh1 MDM: 18:36 Patient medically screened. kb 10/03 00:57 Data reviewed: vital signs, nurses notes. Data interpreted: Pulse oximetry: on room air kb is 98 %. Interpretation: normal. Counseling: I had a detailed discussion with the patient and/or guardian regarding: the historical points, exam findings, and any diagnostic results supporting the discharge/admit diagnosis, lab results, radiology results, the need for outpatient follow up, a family practitioner, to return to the emergency department if symptoms worsen or persist or if there are any questions or concerns that arise at home. 10/02 18:37 Order name: Basic Metabolic Panel; Complete Time: 19:44 kb 10/02 18:37 Order name: CBC with Diff; Complete Time: 19:44 kb 10/02 18:37 Order name: D-Dimer; Complete Time: 20:43 kb 10/02 18:37 Order name: NT PRO-BNP; Complete Time: 19:44 kb 10/02 18:37 Order name: Troponin HS; Complete Time: 19:44 kb 10/02 18:37 Order name: COVID-19 SARS RT PCR (Document "Date of Onset" if Symptomatic); Complete kb Time: 20:43 10/02 18:37 Order name: XRAY Chest (1 view); Complete Time: 20:49 kb 10/02 18:37 Order name: EKG; Complete Time: 18:38 kb 10/02 18:37 Order name: Cardiac monitoring; Complete Time: 18:57 kb 10/02 18:37 Order name: EKG - Nurse/Tech; Complete Time: 18:57 kb 10/02 18:37 Order name: IV Saline Lock; Complete Time: 19:39 kb 10/02 18:37 Order name: Labs collected and sent; Complete Time: 19:39 kb 10/02 19:07 Order name: Urine Microscopic Only; Complete Time: 20:43 kb 10/02 19:57 Order name: Urine Culture EDMS 10/02 18:37 Order name: O2 Per Protocol; Complete Time: 18:39 kb 10/02 18:37 Order name: O2 Sat Monitoring; Complete Time: 18:39 kb 10/02 19:07 Order name: Urine Dipstick-Ancillary (obtain specimen); Complete Time: 19:39 kb Administered Medications: No medications were administered Disposition: 06:58 Co-signature as Attending Physician, Missael Fraser MD. rn Disposition Summary: 10/02/21 20:58 Discharge Ordered Location: Home kb Condition: Stable kb Diagnosis - Chest pain on breathing kb - UTI/ Urinary tract infection, site not specified kb Followup: kb - With: Emergency Department - When: As needed - Reason: Worsening of condition Followup: kb - With: Private Physician - When: 2 - 3 days - Reason: Recheck today's complaints, Continuance of care, Re-evaluation by your physician Discharge Instructions: - Discharge Summary Sheet kb - Costochondritis, [id number] kb - Urinary Tract Infection, Adult, [id number] kb Forms: - Medication Reconciliation Form kb - Thank You Letter kb - Antibiotic Education kb - Prescription Opioid Use kb Prescriptions: - Macrobid 100 mg Oral Capsule - take 1 capsule by ORAL route every 12 hours for 10 days; 20 capsule; Refills: kb 0, Product Selection Permitted Signatures: Dispatcher [employer] Leda Almonte FNP-C FNP-Missael Collier MD MD rn Yue Diggs 3 Corrections: (The following items were deleted from the chart) 10/02 18:39 18:38 BASIC METABOLIC PANEL+C.LAB.BRZ ordered. EDID EDID 18:39 18:38 SARS-COV-2 RT PCR+MOL.LAB.BRZ ordered. EDMS EDMS 18:40 18:38 CBC+H.LAB.BRZ ordered. EDMS EDMS 18:40 18:38 D-DIMER+COAG.LAB.BRZ ordered. EDMS EDMS 18:40 18:38 PROBNP+C.LAB.BRZ ordered. EDMS EDMS 18:40 18:38 Troponin High Sensitivity+C.LAB.BRZ ordered. EDMS EDMS 19:35 19:14 Immunization history: Adult Immunizations up to date, Client reports having NOT 3 received the Covid vaccine. 3 21:19 21:18 PMHx: Anxiety; [facility] 21:19 21:18 PMHx: depressive disorder; [place] [id number] 21:19 21:18 PSHx: Hysterecotomy; 3 3 21:19 21:18 PSHx: section; [place] [id number]
--- NOTE | 2021-10-02 20:59 | ER ---
Nurse's Notes [facility] Name: Roxana Sanchez Age: 46 yrs Sex: Female : 1975 Arrival Date: 10/02/2021 Time: 18:32 Bed 13 Private MD: Diagnosis: Chest pain on breathing;UTI/ Urinary tract infection, site not specified Presentation: 10/02 18:35 Chief complaint: Patient states: SOB, chest pain, weakness, abd bloating and gas, eh3 burning with urination. Coronavirus screen: Vaccine status: Patient reports being unvaccinated. Patient reports having had a previously documented Covid positive illness. Ebola Screen: No symptoms or risks identified at this time. Initial Sepsis Screen: Does the patient meet any 2 criteria? No. Patient's initial sepsis screen is negative. Does the patient have a suspected source of infection? No. Patient's initial sepsis screen is negative. Risk Assessment: Do you want to hurt yourself or someone else? Patient reports no desire to harm self or others. Onset of symptoms was September 29, 2021. 18:35 Method Of Arrival: EMS: [facility] 18:35 Acuity: DELMI 3 eh3 Triage Assessment: 18:35 General: Appears in no apparent distress. comfortable, Behavior is calm, cooperative, eh3 appropriate for age. 19:11 Pain: Complains of pain in mid-sternal area Pain does not radiate. Pain currently is 7 eh3 out of 10 on a pain scale. Quality of pain is described as burning, pressure, Pain began 2-3 days ago. Is continuous. EENT: No signs and/or symptoms were reported regarding the EENT system. Neuro: Level of Consciousness is awake, alert, obeys commands, Oriented to person, place, time, situation. Cardiovascular: Reports chest pain, shortness of breath, Capillary refill < 3 seconds Patient's skin is warm and dry. Respiratory: Reports shortness of breath at rest labored breathing since 3 days ago Airway is patent Respiratory effort is even, labored. GI: Reports bloating, gaseousness. GI: Abdomen is round non-distended. : Reports burning with urination, since 3 days ago. :. Derm: No signs and/or symptoms reported regarding the dermatologic system. Musculoskeletal: Reports weakness in right arm, left arm, right leg and left leg. TRANSCRIPTER: 18:35 LMP N/A - Hysterectomy eh3 Historical: - Immunization history:: Adult Immunizations unknown, Adult Immunizations up to date, Client reports having NOT received the Covid vaccine. - Social history:: Smoking status: Smoking status: Patient reports the use of cigarette tobacco products, Patient denies any tobacco usage or history of. Patient/guardian denies using alcohol. Screenin:20 Abuse screen: Denies threats or abuse. Nutritional screening: No deficits noted. [facility] Tuberculosis screening: No symptoms or risk factors identified. Fall Risk None identified. Assessment: 18:37 General: Appears in no apparent distress. comfortable, Behavior is calm, cooperative, eh3 appropriate for age, Reports fatigue for 2-3 days. Pain: Complains of pain in mid-sternal area Pain does not radiate. Pain currently is 6 out of 10 on a pain scale. Quality of pain is described as burning, Pain began 2-3 days ago. Is continuous. Neuro: Level of Consciousness is awake, alert, obeys commands, Oriented to person, place, time, situation. Cardiovascular: Capillary refill < 3 seconds Patient's skin is warm and dry. Respiratory: Reports shortness of breath at rest since 3 days ago Airway is patent Respiratory effort is even, labored, Breath sounds with wheezes bilaterally. GI: No signs and/or symptoms were reported involving the gastrointestinal system. : No signs and/or symptoms were reported regarding the genitourinary system. EENT: No signs and/or symptoms were reported regarding the EENT system. Derm: No signs and/or symptoms reported regarding the dermatologic system. Musculoskeletal: No signs and/or symptoms reported regarding the musculoskeletal system. Vital Signs: 18:35 BP 119 / 76; Pulse 95; Resp 15; Temp 98.9; Pulse Ox 100% on R/A; Pain 7/10; eh3 19:37 BP 104 / 84; Pulse 83; Resp 15; Pulse Ox 98% on R/A; eh3 20:19 BP 108 / 79; Pulse 80; Resp 20; Pulse Ox 98% on R/A; 1 ED Course: 18:30 Arm band placed on right wrist. eh3 18:32 Patient arrived in ED. 18:34 Minid Grossman RN is Primary Nurse. [facility] 18:34 Mackenzie Felix PA is PHCP. en 18:34 Missael Fraser MD is Attending Physician. en 18:36 PHCP role handed off by Mackenzie Felix PA kb 18:36 Leda Alvarez FNP-C is PHCP. kb 19:05 Inserted saline lock: 20 gauge in right forearm, using aseptic technique. Blood eh3 collected. 19:30 Triage completed. eh3 19:39 Urine Microscopic Only Sent. eh3 19:39 COVID-19 SARS RT PCR (Document "Date of Onset" if Symptomatic) Sent. eh3 19:39 Basic Metabolic Panel Sent. eh3 19:39 CBC with Diff Sent. eh3 19:39 D-Dimer Sent. eh3 19:39 NT PRO-BNP Sent. eh3 19:39 Troponin HS Sent. eh3 19:46 Urine Microscopic Only Sent. eh3 20:08 XRAY Chest (1 view) In Process Unspecified. EDMS 20:14 Urine Culture Sent. eh3 20:20 No apparent distress. Awaiting lab results, Awaiting radiology results. bh1 20:20 Patient has correct armband on for positive identification. Bed in low position. Call 1 light in reach. Side rails up X 1. electronic device monitor on. Pulse ox on. NIBP on. 20:20 No provider procedures requiring assistance completed. bh1 21:18 IV discontinued, intact, bleeding controlled, No redness/swelling at site. Pressure eh3 dressing applied. 10/03 03:50 PHCP role handed off by Leda Alvarez FNP-C mw2 03:50 Attending Physician role handed off by Missael Fraser MD mw2 03:50 Primary Nurse role handed off by Mindi Grossman RN mw2 Administered Medications: No medications were administered Medication: 10/02 20:20 VIS not applicable for this client. bh1 Outcome: 20:58 Discharge ordered by . kb 21:18 Discharged to home ambulatory. eh3 21:18 Condition: stable 21:18 Discharge instructions given to patient, Instructed on discharge instructions, follow up and referral plans. medication usage, Demonstrated understanding of instructions, follow-up care, medications, Prescriptions given X 1. 21:19 Patient left the ED. eh3 10/03 03:53 Patient left the ED. bb Signatures: Dispatcher [employer] EDMI Leda Alvarez FNP-C FNP-Ckb Veronica Whitley RN RN Verito Patel RN RN Alisha Harding 2 Diggs, Yue [facility] Mackenzie Felix PA PA en Hicks, Barbara RN RN 1 Corrections: (The following items were deleted from the chart) 10/02 19:30 19:14 BP 119 / 76; Pulse 95bpm; Resp 15bpm; Pulse Ox 100% RA; Pain 7/10; [place] [id number] 19:35 19:11 General: Appears in no apparent distress. comfortable, Behavior is calm, [facility] cooperative, appropriate for age, [facility] 19:35 19:14 Chief complaint: Patient states: SOB, chest pain, weakness, abd bloating and gas, [facility] burning with urination. [facility] :35 19:14 Ebola Screen: No symptoms or risks identified at this time. [place] [id number] 19:35 19:14 Coronavirus screen: Vaccine status: Patient reports being unvaccinated. Patient [facility] reports having had a previously documented Covid positive illness. [facility] :35 19:14 Method Of Arrival: EMS: [facility] [place] [id number] 19:35 19:14 BP 119 / 76; Pulse 95bpm; Resp 15bpm; Pulse Ox 100% RA; Temp 98.9F; Pain 7/10; [facility] 19:35 19:14 Initial Sepsis Screen: Does the patient meet any 2 criteria? No. Patient's [facility] initial sepsis screen is negative. Does the patient have a suspected source of infection? No. Patient's initial sepsis screen is negative. [facility] :35 19:14 Risk Assessment: Do you want to hurt yourself or someone else? Patient reports no [facility] desire to harm self or others. [facility] 19:35 19:14 Onset of symptoms was September 29, 2021 [place] [id number] 19:35 19:14 Acuity: DELMI 3 [place] [address] 19:35 19:14 Immunization history: Adult Immunizations up to date, Client reports having NOT [facility] received the Covid vaccine. [facility] :36 19:14 LMP N/A - Hysterectomy [place] [id number] :36 19:14 Arm band placed on right wrist. [place] [address] 19:38 19:38 Inserted saline lock: 20 gauge in right forearm, using aseptic technique. Blood 3 collected. eh3 : 21:18 PMHx: Anxiety; eh3 eh3 ::18 PMHx: depressive disorder; eh3 eh3 : 21:18 PSHx: Hysterecotomy; eh3 eh3 ::18 PSHx: section; eh3 eh3
[2021-10-02 21:56] VITALS: TEMP 98.9
[2021-10-02 21:57] VITALS: O2SAT 98
[2021-10-02 21:58] VITALS: BP 108/79
[2021-10-03] MEDS ORDERED: LORAZEPAM 1 MG TABLET ONE (04:19)
--- NOTE | 2021-10-03 13:47 | EKG ---
Test Date: 2021-10-02 Test Time: 18:51:28 Netting Weaver: MAGDALENO MEASUREMENT RESULTS: Intervals: Rate: 94 [place]: 182 QRSD: 90 QT: 372 QTc: 465 Home: P: 36 [place]: 182 QRS: -28 T: 56 INTERPRETIVE STATEMENTS: Normal sinus rhythm Normal ECG Compared to ECG 09/29/2021 03:35:55 T-wave abnormality no longer present Electronically Signed On 10-03-21 13:45:36 CDT by Noe Thorne
== END 2021-10-03 03:53 | disposition home or self-care (01) ==
LOC: ER 18:28
DX: R07.1 Chest pain on breathing (principal); N39.0 Urinary tract infection, site not specified; Z72.0 Tobacco use; Z20.822 Contact with and (suspected) exposure to COVID-19
CPT/HCPCS: 36415; 71045; 80048; 81015; 83880; 84484; 85025; 85379; 87086; 87088; 93005; 99284; U0003

== ENCOUNTER 2021-10-03 03:58 | Emergency (ER) | payer SELFPAY ==
--- NOTE | 2021-10-03 05:35 | ER ---
Nurse's Notes [facility] Name: Roxana Sanchez Age: 46 yrs Sex: Female : 1975 Arrival Date: 10/03/2021 Time: 03:58 Bed 13 Private MD: Diagnosis: Other depressive episodes;Other specified anxiety disorders Presentation: 10/03 03:58 Chief complaint: Patient states: "I was here earlier today because I felt really weak, bb I was diagnosed with a UTI, now when I lay down to sleep I feel anxious and and having SOB when I sit up my SOB improves but I feel anxious." EMS states: "We were called out for SOB once we arrived she was sitting up with no SOB, we brought her in for anxiety and depression. Her out was 100 on room air.". Coronavirus screen: At this time, the client does not indicate any symptoms associated with coronavirus-19. Ebola Screen: No symptoms or risks identified at this time. Initial Sepsis Screen: Does the patient meet any 2 criteria? No. Patient's initial sepsis screen is negative. Does the patient have a suspected source of infection? No. Patient's initial sepsis screen is negative. Risk Assessment: Do you want to hurt yourself or someone else? Patient reports no desire to harm self or others. Onset of symptoms was October 03, 2021. 03:58 Method Of Arrival: EMS: [facility] 03:58 Acuity: DELMI 5 bb Triage Assessment: 04:05 General: Appears in no apparent distress. comfortable, Behavior is calm, cooperative, bb appropriate for age. Pain: Denies pain. Neuro: Level of Consciousness is awake, alert, obeys commands, Oriented to person, place, time, situation, Appropriate for age. Respiratory: Reports shortness of breath while laying flat Airway is patent Respiratory effort is even, unlabored, Respiratory pattern is regular, symmetrical. Historical: - Allergies: 04:04 Vicodin; bb - Home Meds: 04:04 Zoloft Oral [Active]; bb - PMHx: 04:04 Anxiety; Depressive disorder; bb - Immunization history:: Adult Immunizations up to date. - Social history:: Smoking status: Patient denies any tobacco usage or history of. - Family history:: not pertinent. Screenin:05 Abuse screen: Denies threats or abuse. Nutritional screening: No deficits noted. bb Tuberculosis screening: No symptoms or risk factors identified. Fall Risk None identified. Assessment: 04:10 Reassessment: See triage assessment. vc1 05:11 Reassessment: Patient and/or family updated on plan of care and expected duration. Pain vc1 level reassessed. Pt laying on her side sleeping. Patient states feeling better. Patient states symptoms have improved. Vital Signs: 03:58 Pulse 71; Temp 98.8(O); Pulse Ox 98% on R/A; Weight 81.65 kg; Height 5 ft. 5 in. bb (165.10 cm); Pain 0/10; 04:08 BP 130 / 88; Pulse 71; Resp 12; Temp 98.8(O); Pulse Ox 100% on R/A; wm 05:12 BP 123 / 80; Pulse 62; Resp 15; Pulse Ox 99% ; Pain 0/10; vc1 03:58 Body Mass Index 29.95 (81.65 kg, 165.10 cm) ED Course: 03:58 Patient arrived in ED. bb 04:02 Shahbaz Corado MD is Attending Physician. olayinka 04:04 Triage completed. bb 04:05 Arm band placed on right wrist. bb 04:05 Patient has correct armband on for positive identification. Client placed on continuous bb cardiac and pulse oximetry monitoring. NIBP monitoring applied. 04:07 Veronica Whitley RN is Primary Nurse. bb 04:08 Primary Nurse role handed off by Veronica Whitley, ELIJAH vc1 04:08 Nanci Valderrama RN is Primary Nurse. vc1 04:08 Lights dimmed. Warm blanket given. wm 05:33 Fernando Varghese MD is Referral Physician. olayinka 05:53 No provider procedures requiring assistance completed. Patient did not have IV access vc1 during this emergency room visit. Administered Medications: 04:20 Drug: Ativan (LORazepam) 1 mg Route: PO; vc1 05:15 Follow up: Response: No adverse reaction; Marked relief of symptoms; Anxiety decreased vc1 Medication: 05:54 VIS not applicable for this client. vc1 Outcome: 05:34 Discharge ordered by . olayinka 05:54 Discharged to home ambulatory, Bus voucher given vc1 05:54 Condition: good 05:54 Discharge instructions given to patient, Instructed on discharge instructions, follow up and referral plans. Demonstrated understanding of instructions, follow-up care. 05:55 Patient left the ED. vc1 Signatures: Shahbaz Corado MD MD cha Ballard, Brenda RN RN Sharyn Jean-Baptiste Nanci Valderrama RN RN vc1 Corrections: (The following items were deleted from the chart) 04:09 04:08 BP 130 / 88; Pulse 12bpm; vc1 vc1 04:29 04:08 BP 130 / 88; Pulse 71bpm; Resp 12bpm; vc1 wm
--- NOTE | 2021-10-03 05:35 | EDPHYS ---
Physician Documentation [facility] Name: Roxana Sanchez Age: 46 yrs Sex: Female : 1975 Arrival Date: 10/03/2021 Time: 03:58 Bed 13 Private MD: ED Physician Shahbaz Corado HPI: 10/03 05:31 This 46 yrs old Black Female presents to ER via EMS with complaints of anxious and olayinka depressed , sob. 05:31 The patient or guardian reports chest pain that is located primarily in the anterior olayinka chest wall, bilaterally. Onset: just prior to arrival, yesterday. weak, anxious. The pain does not radiate. Onset: The symptoms/episode began/occurred this morning, today. Associated signs and symptoms: The patient has no apparent associated signs or symptoms. The chest pain is described as aching. Modifying factors: The symptoms are alleviated by nothing. the symptoms are aggravated by nothing. Historical: - Allergies: 04:04 Vicodin; bb - Home Meds: 04:04 Zoloft Oral [Active]; bb - PMHx: 04:04 Anxiety; Depressive disorder; bb - Immunization history:: Adult Immunizations up to date. - Social history:: Smoking status: Patient denies any tobacco usage or history of. - Family history:: not pertinent. ROS: 05:31 Constitutional: Negative for fever, chills, and weight loss, Eyes: Negative for injury, olayinka pain, redness, and discharge, ENT: Negative for injury, pain, and discharge, Neck: Negative for injury, pain, and swelling, Cardiovascular: Negative for chest pain, palpitations, and edema, Respiratory: Negative for shortness of breath, cough, wheezing, and pleuritic chest pain, Abdomen/GI: Negative for abdominal pain, nausea, vomiting, diarrhea, and constipation, Back: Negative for injury and pain, : Negative for injury, bleeding, discharge, and swelling, MS/Extremity: Negative for injury and deformity, Skin: Negative for injury, rash, and discoloration, Neuro: Negative for headache, weakness, numbness, tingling, and seizure, Psych: Negative for depression, anxiety, suicide ideation, homicidal ideation, and hallucinations, Allergy/Immunology: Negative for hives, rash, and allergies, Endocrine: Negative for neck swelling, polydipsia, polyuria, polyphagia, and marked weight changes, Hematologic/Lymphatic: Negative for swollen nodes, abnormal bleeding, and unusual bruising. Exam: 05:31 Constitutional: This is a well developed, well nourished patient who is awake, alert, olayinka and in no acute distress. Head/Face: Normocephalic, atraumatic. Eyes: Pupils equal round and reactive to light, extra-ocular motions intact. Lids and lashes normal. Conjunctiva and sclera are non-icteric and not injected. Cornea within normal limits. Periorbital areas with no swelling, redness, or edema. ENT: Nares patent. No nasal discharge, no septal abnormalities noted. Tympanic membranes are normal and external auditory canals are clear. Oropharynx with no redness, swelling, or masses, exudates, or evidence of obstruction, uvula midline. Mucous membranes moist. Neck: Trachea midline, no thyromegaly or masses palpated, and no cervical lymphadenopathy. Supple, full range of motion without nuchal rigidity, or vertebral point tenderness. No Meningismus. Chest/axilla: Normal chest wall appearance and motion. Nontender with no deformity. No lesions are appreciated. Cardiovascular: Regular rate and rhythm with a normal S1 and S2. No gallops, murmurs, or rubs. Normal PMI, no JVD. No pulse deficits. Respiratory: Lungs have equal breath sounds bilaterally, clear to auscultation and percussion. No rales, rhonchi or wheezes noted. No increased work of breathing, no retractions or nasal flaring. Abdomen/GI: Soft, non-tender, with normal bowel sounds. No distension or tympany. No guarding or rebound. No evidence of tenderness throughout. Back: No spinal tenderness. No costovertebral tenderness. Full range of motion. Skin: Warm, dry with normal turgor. Normal color with no rashes, no lesions, and no evidence of cellulitis. MS/ Extremity: Pulses equal, no cyanosis. Neurovascular intact. Full, normal range of motion. Neuro: Awake and alert, GCS 15, oriented to person, place, time, and situation. Cranial nerves II-XII grossly intact. Motor strength 5/5 in all extremities. Sensory grossly intact. Cerebellar exam normal. Normal gait. Psych: Awake, alert, with orientation to person, place and time. Behavior, mood, and affect are within normal limits. Vital Signs: 03:58 Pulse 71; Temp 98.8(O); Pulse Ox 98% on R/A; Weight 81.65 kg; Height 5 ft. 5 in. bb (165.10 cm); Pain 0/10; 04:08 BP 130 / 88; Pulse 71; Resp 12; Temp 98.8(O); Pulse Ox 100% on R/A; wm 05:12 BP 123 / 80; Pulse 62; Resp 15; Pulse Ox 99% ; Pain 0/10; vc1 03:58 Body Mass Index 29.95 (81.65 kg, 165.10 cm) bb MDM: 04:03 Patient medically screened. olayinka 05:32 Differential diagnosis: abnormal EKG, acute pericarditis, coronary artery disease chest olayinka wall pain, congestive heart failure costochondritis, hiatal hernia, pancreatitis, peptic ulcer disease, pericarditis, pleurisy, pneumonia. Data reviewed: vital signs, nurses notes, lab test result(s), EKG, radiologic studies. Administered Medications: 04:20 Drug: Ativan (LORazepam) 1 mg Route: PO; vc1 05:15 Follow up: Response: No adverse reaction; Marked relief of symptoms; Anxiety decreased vc1 Disposition Summary: 10/03/21 05:34 Discharge Ordered Location: Home olayinka Problem: new olayinka Symptoms: have improved olayinka Condition: Stable olayinka Diagnosis - Other depressive episodes olayinka - Other specified anxiety disorders olayinka Followup: olayinka - With: Private Physician - When: 2 - 3 days - Reason: Recheck today's complaints, Continuance of care, Re-evaluation by your physician Followup: olayinka - With: Fernando Varghese MD - When: 2 - 3 days - Reason: Recheck today's complaints, Re-evaluation by your physician Discharge Instructions: - Discharge Summary Sheet olayinka - Fatigue olayinka - Managing Depression, Adult olayinka - Supporting Someone With Anxiety olayinka Forms: - Medication Reconciliation Form olayinka - Thank You Letter olayinka - Antibiotic Education olayinka - Prescription Opioid Use olayinka Signatures: Shahbaz Corado MD MD cha Ballard, Brenda, RN RN bb Nanci Valderrama RN RN vc1
[2021-10-03 06:07] VITALS: TEMP 98.8
[2021-10-03 06:11] VITALS: BP 123/80; O2SAT 99
== END 2021-10-03 05:55 | disposition home or self-care (01) ==
LOC: ER 03:58
DX: F32.89 Other specified depressive episodes (principal); F41.8 Other specified anxiety disorders; Z88.5 Allergy status to narcotic agent
CPT/HCPCS: 99283

== ENCOUNTER 2022-02-05 12:22 | Emergency (ER) | payer SELFPAY ==
--- OUTSIDE RECORDS SUMMARY | 2022-02-05 12:59 | XMS REPORT | Continuity of Care Document ---
:1975 Author Organization [facility] [place] t Address [address] [place] [address] Care Team Providers Name Role Phone EMILIANO Mercado [facility], [facility] Primary Care P hysician Unavailable CRISTAL YOUNG Attending Clinician Unavailable Cristal Young DO Attending Clinician ALEJANDRINA PENA Attending Clinician Unavailable Alejandrina Pena MD Attending Clinician RANJIT CHURCH Attending Clinician Unavailable Ranjit Pringle Attending Clinician DIANA BRADFORD Attending Clinician Unavailable Diana Bradford NP Attending Clinician Ingrid Paez MD Attending Clinician INGRID PAEZ Attending Clinician Unavailable Marisol Caal Attending Clinician MARISOL OCAMPO Attending Clinician Unavailable Jeremiah Stone Attending Clinician Arlin Vang Attending Clinician Shirley Holland Attending Clinician Lalita Machado Attending Clinician Juve Cisneros Attending Clinician Young Christy Attending Clinician Darren Mars Attending Clinician Asim Amato Attending Clinician Sofiya Arora Attending Clinician Sunny Rodriguez Attending Clinician Nabor Snow Attending Clinician Joy Mercer Attending Clinician CRISTAL YOUNG Admitting Clinician Unavailable ALEJANDRINA PENA Admitting Clinician Unavailable RANJIT CHURCH Admitting Clinician Unavailable DIANA BRADFORD Admitting Clinician Unavailable Darren Mars Admitting Clinician Nabor Snow Admitting Clinician Payers Payer Name Policy Type Policy Number Effective Date Expiration Date S [place] [id number] 2018 WOMEN 00:00:00 MEDICAID PENDING PENDING 2021 00:00:00 Problems Condition Condition Condition Status Onset Resolution Last Treating Co mments Source Name Details Category Date Date Treatment Clinician Date PANIC PANIC Diagnosis Active 2018-06-23 Mem oria ATTACK ATTACK 1-16 10:12:00 l Active 00:00: Arthur 04/10/2018 [facility] HEART HEART Diagnosis Active 2018-06-17 Mem oria PROBLEMS PROBLEMS 1-04 21:29:00 l Active 00:00: Arthur 03/29/2018 [facility] SOB WEAK SOB WEAK Diagnosis Active 2018-07-04 Memoria Active 11-16 16:41:00 l 11/16/2017 00:00: Cheko tyler [facility] 00 [place] DIZZY/ DIZZY/ Diagnosis Active 2018-06-20 Me moria WEAKNESS WEAKNESS 10-31 19:28:00 l Active 00:00: Arthur 10/31/2017 00 [facility] CHEST PAIN CHEST Diagnosis Active 2018-06-23 Memoria PAIN 10-25 10:12:00 l Active 00:00: [place] 10/25/2017 00 [facility] ABD PAIN ABD PAIN Diagnosis Active 2018-06-20 Memoria AND BACKK AND BACKK 10-13 19:28:00 l PAIN PAIN 00:00: [place] Active 00 10/13/2017 [facility] UTERINE UTERINE Diagnosis Active 2016-05-01 Memoria FIBROIDS-D FIBROIDS-D 04-24 11:50:00 l 25.9/ 25.9/ 00:00: Arthur MENORRHAGI MENORRHAGI 00 A-N92.0/ A-N92.0/ DYSMENORRH DYSMENORRH EA-N94 EA-N94 Active 04/24/2016 [place] FEVER FEVER Diagnosis Active 2015-032016-03-17 Mem oria Active 05-18 16:45:00 l 03/17/2016 00:00: Cheko tyler [facility] 00 [place] ARM PAIN ARM PAIN Diagnosis Active 2015-10-04 Memoria Active 08-02 06:03:00 l 08/03/2015 00:00: Cheko tyler 00 [facility] SHORTNESS SHORTNESS Diagnosis Active 2015-04-07 Memoria OF BREATH OF BREATH 04-07 10:14:00 l Active 00:00: Arthur 04/07/2015 00 [facility] CHEST CHEST Diagnosis Active 2014-11-25 Mem oria PAIN, PAIN, 11-05 16:15:00 l ANEMIA ANEMIA 00:00: [place] Active 00 11/05/2014 [place] SOB SOB Diagnosis Active 2012-032013-03-07 Mem oria Active 05-08 10:30:00 l 03/07/2013 00:00: Cheko tyler [address] VOMITING VOMITING Diagnosis Active 2012-032013-03-07 Memoria Active 05-08 15:44:00 l 03/07/2013 00:00: Cheko tyler 00 [facility] MOUTH PAIN MOUTH Diagnosis Active 2012-04-04 Memoria PAIN - 02:18:00 l Active 00:00: [place] 04/03/2012 00 [facility] No known No known Disease Unive rs active active ity of problems problems [facility] Weakness Weakness Problem 2018-10-28 Memoria 10/28/2018 15:48:36 l Florence Avina [facility] Major Major Problem 2018-10-28 Memor ia depressive depressive 15:48:36 l disorder, disorder, Herm stevie single single episode, episode, unspecifie unspecifie d d 10/28/2018 [facility] Allergy Allergy Problem 2018-10-28 Me moria status to status to 15:48:36 l narcotic narcotic Cheko n agent agent status status 10/28/2018 [facility] Hyperlipid Hyperlipi Problem 2018-10-28 Memoria priceia, 15:48:36 l unspecifie unspecifie He rmann d d 10/28/2018 [facility] 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: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 [place] cervix and cervix and uterus uterus 10/16/2018 [facility] 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[employer] Problem 2018-05-15 Memoria (current) (current) 15:12:19 l use of use of [place] aspirin aspirin 05/15/2018 [facility] Anemia, Anemia, Problem 2018-06-06 Pa moria unspecifie unspecifie 12:26:54 l d d [place] 06/06/2018 [facility] Essential Problem 2018-05-02 Pa moria (primary) Essential 13:32:53 l hypertensi (primary) Her szymanski on hypertensi on 05/02/2018 [facility] Altered Altered Problem 2018-05-20 Me moria mental mental 16:43:34 l status, status, [place] unspecifie unspecifie d d 05/20/2018 [facility] Hyperlipid Hyperlipi Problem Resolve 2018-10-28 Memoria emia demia d 15:48:36 l (disorder) (disorder) He rmann Resolved Problem 10/28/2018 [facility], [place], [place] None None Problem Resolve 2018-10-28 Yamil brandi (qualifier (qualifier d 15:48:36 l value) value) [place] Resolved Problem 10/28/2018 [facility], [facility], [place] Anemia Anemia Problem Active 2018-10-28 Yamil brandi (disorder) (disorder) 15:48:36 l Active Arthur Problem 10/28/2018 [facility], [place] Dysmenorrh Problem Active 2018-10-28 M emoria ea Dysmenorrh 15:48:36 l (disorder) ea Cheko n (disorder) Active Problem 10/28/2018 [facility], [facility] Menorrhagi Problem Active 2018-10-28 M emoria a Menorrhagi 15:48:36 l (finding) a Arthur (finding) Active Problem 10/28/2018 [facility], [facility] Uterine Uterine Problem Active 2018-10-28 Me moria leiomyoma leiomyoma 15:48:36 l (disorder) (disorder) He pop Active Problem 10/28/2018 [facility], [facility] History of Past Illness Condition Condition Condition Status Onset Resolution Last Treating Co mments Source Name Details Category Date Date Treatment Clinician Date Anxiety Anxiety Problem 2018-10-28 2018-10-28 Memoria disorder, disorder, - 15:48:36 15:48:36 l unspecifie unspecifie 06:00: Pérez rmann d d 00 04/10/2018 9 [facility] Chest Chest Problem 2018-10-16 2018-10-16 M emoria pain, pain, 1- 15:24:24 15:24:24 l unspecifie unspecifie 06:00: Pérez rmann d d 00 03/29/2018 9 [facility] [place] Myalgia Myalgia Problem 2018-06-06 2018-06-06 Memoria 11/17/201711-17 12:26:54 12:26:54 l 06/06/2018 05:00: Cheko tyler [address] Shortness Shortness Problem 2018-06-06 2018-06-06 Memoria of breath of breath 11-17 12:26:54 12:26:54 l 11/17/2017 05:00: Cheko tyler 06/06/2018 00 [facility] Disorienta Problem 2018-05-20 2018-05-20 Memoria Germain schererorienta 10-31 16:43:34 16:43:34 l unspecifie tion, 05:00: Cheko tyler d unspecifie 00 d 10/31/2017 05/20/2018 [facility] Gastro-eso Gastro-es Problem 2018-05-15 2018-05-15 Memoria phageal ophageal 10-26 15:12:19 15:12:19 l reflux reflux 05:00: Arthur disease disease 00 without without esophagiti esophagiti s s 10/26/2017 05/15/2018 [facility] Calculus Calculus Problem 2018-05-02 2018-05-02 Memoria of ureter of ureter 10-13 13:32:53 13:32:53 l 10/13/2017 05:00: Cheko tyler 05/02/2018 00 [facility] Unspecifie Problem 2018-05-02 2018-05-02 Memoria d renal Unspecifie 10-13 13:32:53 13:32:53 l colic d renal 05:00: [place] colic 00 10/13/2017 05/02/2018 [facility] Discharge Problem 2015-032016-03-20 2016-03-20 Memoria Diagnosis: Discharge 05-18 04:09:49 04:09:49 l Acute URI Diagnosis: 06:00: Her szymanski Acute URI 00 03/17/2016 03/20/2016 [facility] Discharge Problem 2015-032016-03-20 2016-03-20 Memoria Diagnosis: Discharge 05-18 04:09:49 04:09:49 l Acute UTI Diagnosis: 06:00: Her szymanski Acute UTI 00 03/17/2016 03/20/2016 [facility] Discharge Problem 2015-08-06 2015-08-06 Memoria Diagnosis: Discharge 08-02 04:50:15 04:50:15 l Pain, arm, Diagnosis: 05:00: He rmann right Pain, arm, 00 right 08/03/2015 08/06/2015 [facility] Discharge Discharge Problem 2014-11-06 2014-11-06 Memoria Diagnosis: Diagnosis: 8-11 07:57:24 07:57:24 l Microcytic Microcytic 05:00: He stevie anemia anemia 00 11/03/2014 11/06/2014 [facility] Discharge Discharge Problem 2014-11-06 2014-11-06 Raven Diagnosis: Diagnosis: 11-03 07:57:24 07:57:24 l Chest pain Chest pain 05:00: He rmann 11/03/2014 00 11/06/2014 [facility] Allergies, Adverse Reactions, Alerts Allergy Allergy Status Severity Reaction(s) Onset Inactive Treating Comm ents Source Name Type Date Date Clinician Mesna - Propensi Active Intraven ty to 6-29 ous adverse 00:00: reaction 00 to drug Vicodin Propensi Active ty to 2-23 adverse 00:00: reaction 00 to drug HYDROCOD DRUG Active Hallucinates Un kiara ONE INGREDI 4-20 ity of 00:00: [place] 00 Medical Branch Hydrocod Propensi Active Shortness of Univers one ty to Breath 4-20 ity of adverse 00:00: [place] reaction 00 Medical s Branch Vicodin Vicodin Active Raven Gibson Social History Social Habit Start Date Stop Date Quantity Comments Source Exposure to 2021-10-08 2021-10-18 Not sure [facility] SARS-CoV-2 00:00:00 12:20:00 [facility] (event) Branch Alcohol intake 2021-10-18 2021-10-18 Current University of 00:00:00 00:00:00 non-drinker of [facility] alcohol (finding) Branch Tobacco use and 2017-07-13 2017-07-13 Smokeless tobacco Un iversity of exposure 00:00:00 00:00:[address] [facility] Social History 2015-08-03 2015-08-03 [facility] 14:56:09 14:56:09 Sex Ass[birth year] At [birth year] Universit y of 00:00:00 00:00:00 [facility] Smoking Status Start Date Stop Date Source Never smoked tobacco [facility] [place] Medications Ordered Filled Start Stop Current Ordering Indication Dosage Frequency Signature Comments Components Source Medication Medication Date Date Medication? Clinician (SIG) Name Name ibuprofen No 600mg 600 mg, Uni vers (IBU) 10-18 Oral, ity of tablet 600 15:45: 16:12 ONCE, 1 Eddie as mg 00 :00 dose, On [facility] Branch 10/18/21 at 1045, MESSI Dose 2021-0 No 250 Unknown 10-13 00:00: 00 TAKE 1 2021-0 No 20 TABLET BY 7 MOUTH 4 00:00: TIMES DAILY 00 Dose 2021-0 No 250 Unknown 10-13 00:00: 00 TAKE 1 2021-0 No 20 TABLET BY 7 MOUTH 4 00:00: TIMES DAILY 00 Dose 2-0 No 250 Unknown 10-13 00:00: 00 TAKE 1 2021-0 No 20 TABLET BY 7- MOUTH 4 00:00: TIMES DAILY 00 DISSOLVE 1 2021-0 No 10 NICO IN 7-19 MOUTH 5 00:00: TIMES DAILY 00 TAKE 1 2021-0 No 100 CAPSULE BY 7-19 MOUTH EVERY 00:00: 12 HOURS 00 FOR 10 DAYS DISSOLVE 1 2021-0 No 10 NICO IN 7-19 MOUTH 5 00:00: TIMES DAILY 00 TAKE 1 2021-0 No 100 CAPSULE BY 7-19 MOUTH EVERY 00:00: 12 HOURS 00 FOR 10 DAYS Dose 2021-0 No Unknown 10-11 00:00: 00 TAKE 1 2021-0 No 100 CAPSULE BY 7-19 MOUTH EVERY 00:00: 12 HOURS 00 FOR 10 DAYS sertraline 2021-0 No 1mg 25 mg 7-15 tablet 00:00: 00 TAKE 1 2021-0 No 100 CAPSULE BY 7-15 MOUTH EVERY 00:00: 12 HOURS 00 FOR 10 DAYS TAKE 1 2021-0 No 100 CAPSULE BY 7-15 MOUTH EVERY 00:00: 8 HOURS 00 NEEDED FOR COUGH AND CONGESTION sertraline 2-0 No 1mg 25 mg 7-15 tablet 00:00: 00 TAKE 1 2-0 No 100 CAPSULE BY 7-15 MOUTH EVERY 00:00: 12 HOURS 00 FOR 10 DAYS TAKE 1 2-0 No 100 CAPSULE BY 7-15 MOUTH EVERY 00:00: 8 HOURS 00 NEEDED FOR COUGH AND CONGESTION sertraline 2-0 No 1mg 25 mg 7-15 tablet 00:00: 00 TAKE 1 2021-0 No 100 CAPSULE BY 7-15 MOUTH EVERY 00:00: 12 HOURS 00 FOR 10 DAYS TAKE 1 2-0 No 100 CAPSULE BY 7-15 MOUTH EVERY 00:00: 8 HOURS 00 NEEDED FOR COUGH AND CONGESTION TAKE 1 2021-0 No 100 CAPSULE BY 7-07 MOUTH EVERY 00:00: 12 HOURS 00 FOR 10 DAYS TED DE LA CRUZ DISSOLVE 1 2021-0 No 10 NICO IN 7-07 MOUTH 5 00:00: TIMES DAILY 00 Dose 2021-0 No 250 Unknown 09-29 00:00: 00 TAKE 1 2021-0 No 100 CAPSULE BY 7-07 MOUTH EVERY 00:00: 12 HOURS 00 FOR 10 DAYS TED DE LA CRUZ DISSOLVE 1 2021-0 No 10 NICO IN 7-07 MOUTH 5 00:00: TIMES DAILY 00 Dose 2021-0 No 250 Unknown 09-29 00:00: 00 TAKE 1 2021-0 No 100 CAPSULE BY 7-07 MOUTH EVERY 00:00: 12 HOURS 00 FOR 10 DAYS TED DE LA CRUZ DISSOLVE 1 2021-0 No 10 NICO IN 7-07 MOUTH 5 00:00: TIMES DAILY 00 Dose 2021-0 No 250 Unknown 09-29 00:00: 00 TAKE 1 2021-0 No 100 CAPSULE BY 7-07 MOUTH EVERY 00:00: 12 HOURS 00 FOR 10 DAYS TED DE LA CRUZ DISSOLVE 1 0 No 10 NICO IN 7-07 MOUTH 5 00:00: TIMES DAILY 00 Dose 2021-0 No 250 Unknown 09-29 00:00: 00 iopamidol 2021-2021- No [id number] 70mL 70 mL, Univers (ISOVUE 09-24 Intravenou ity o f 370-500 mL) 17:17: 17:30 s, ONCE, 1 [place] injection 00 :00 dose, On Medica l 70 mL 09/24/21 Branch at 1230, Routine dicyclomine Yes [id number] 20mg Take 1 Univers 20 mg 7-02 tablet by ity of tablet 00:00: mouth 4 [place] 00 (four) Medical times Branch daily. docusate 2021-0 Yes [id number] 250mg Take 1 U nivers sodium 250 7-02 capsule by ity of mg capsule 00:00: mouth once [place] 00 daily as Medical needed for Branch Constipati on. ondansetron 0 Yes [id number] 4mg Take 1 Univers 4 mg 7-02 tablet by ity of disintegrat 00:00: mouth [place] ing tablet 00 every 4 Medica l (four) Branch hours as needed for Nausea and Vomiting (N/V). dicyclomine 2021-0 Yes [id number] 20mg Take 1 Univers 20 mg 7-02 tablet by ity of tablet 00:00: mouth 4 [place] 00 (four) Medical times Branch daily. docusate 2021-0 Yes [id number] 250mg Take 1 U nivers sodium 250 7-02 capsule by ity of mg capsule 00:00: mouth once [place] 00 daily as Medical needed for Branch Constipati on. ondansetron 2021-0 Yes [id number] 4mg Take 1 Univers 4 mg 7-02 tablet by ity of disintegrat 00:00: mouth [place] ing tablet 00 every 4 Medica l (four) Branch hours as needed for Nausea and Vomiting (N/V). ibuprofen 2021-0 No 1mg 800 mg 6-29 tablet 00:00: 00 tizanidine 2022-0 No 1mg 4 mg 6-29 capsule 00:00: 00 Dose 2-0 No Unknown 09-21 00:00: 00 Dose 2-0 No Unknown 09-21 00:00: 00 ibuprofen 2-0 No 1mg 800 mg 6-29 tablet 00:00: 00 tizanidine 2022-0 No 1mg 4 mg 6-29 capsule 00:00: 00 Dose 2-0 No Unknown 09-21 00:00: 00 TAKE 2 2022-0 No TABLETS BY 6-29 MOUTH ON 00:00: DAY 1, AND 00 THEN TAKE 1 TABLET BY MOUTH ONCE A DAY ON DAY 2 THROUGH DAY 5 Dose 2-0 No Unknown 09-21 00:00: 00 TAKE 2 2022-0 No TABLETS BY 6-29 MOUTH ON 00:00: DAY 1, AND 00 THEN TAKE 1 TABLET BY MOUTH ONCE A DAY ON DAY 2 THROUGH DAY 5 TAKE 1 2-0 No CAPSULE BY 6-29 MOUTH EVERY 00:00: 8 HOURS 00 NEEDED FOR COUGH AND CONGESTION Dose 2-0 No Unknown 09-21 00:00: 00 TAKE 1 2-0 No CAPSULE BY 6-29 MOUTH EVERY 00:00: 12 HOURS 00 FOR 10 DAYS TED DE LA CRUZ TAKE 1 2021-0 No CAPSULE BY 6-29 MOUTH EVERY 00:00: 8 HOURS 00 NEEDED FOR COUGH AND CONGESTION Dose 2-0 No Unknown 6 00:00: 00 TAKE 1 2-0 No CAPSULE BY 6-29 MOUTH EVERY 00:00: 12 HOURS 00 FOR 10 DAYS TED DE LA CRUZ ibuprofen 2022-0 No 1mg 800 mg 6-29 tablet 00:00: 00 tizanidine 2022-0 No 1mg 4 mg 6-29 capsule 00:00: 00 Dose 2022-0 No Unknown 09-21 00:00: 00 Dose 2-0 No Unknown 09-21 00:00: 00 TAKE 2 2-0 No TABLETS BY 6-29 MOUTH ON 00:00: DAY 1, AND 00 THEN TAKE 1 TABLET BY MOUTH ONCE A DAY ON DAY 2 THROUGH DAY 5 TAKE 1 2-0 No CAPSULE BY 6-29 MOUTH EVERY 00:00: 8 HOURS 00 NEEDED FOR COUGH AND CONGESTION Dose 2-0 No Unknown 09-21 00:00: 00 TAKE 1 2-0 No CAPSULE BY 6-29 MOUTH EVERY 00:00: 12 HOURS 00 FOR 10 DAYS TED DE LA CRUZ ibuprofen 2-0 No 1mg 800 mg 6-29 tablet 00:00: 00 tizanidine 2022-0 No 1mg 4 mg 6-29 capsule 00:00: 00 Dose 2-0 No Unknown 09-21 00:00: 00 Dose 2-0 No Unknown 09-21 00:00: 00 TAKE 2 2-0 No TABLETS BY 6-29 MOUTH ON 00:00: DAY 1, AND 00 THEN TAKE 1 TABLET BY MOUTH ONCE A DAY ON DAY 2 THROUGH DAY 5 TAKE 1 2-0 No CAPSULE BY 6-29 MOUTH EVERY 00:00: 8 HOURS 00 NEEDED FOR COUGH AND CONGESTION Dose 2-0 No Unknown 09-21 00:00: 00 TAKE 1 2-0 No CAPSULE BY 6-29 MOUTH EVERY 00:00: 12 HOURS 00 FOR 10 DAYS TED DE LA CRUZ ibuprofen 2022-0 No 1mg 800 mg 6-29 tablet 00:00: 00 tizanidine 2022-0 No 1mg 4 mg 6-29 capsule 00:00: 00 Dose 2022-0 No Unknown 6-29 00:00: 00 Dose 2022-0 No Unknown 6-29 00:00: 00 TAKE 2 2022-0 No TABLETS BY 6-29 MOUTH ON 00:00: DAY 1, AND 00 THEN TAKE 1 TABLET BY MOUTH ONCE A DAY ON DAY 2 THROUGH DAY 5 TAKE 1 2-0 No CAPSULE BY 6-29 MOUTH EVERY 00:00: 8 HOURS 00 NEEDED FOR COUGH AND CONGESTION Dose 2-0 No Unknown 6-29 00:00: 00 TAKE 1 2-0 No CAPSULE BY 6-29 MOUTH EVERY 00:00: 12 HOURS 00 FOR 10 DAYS TED DE LA CRUZ sertraline 2-0 No 1mg 25 mg 2-23 tablet 00:00: 00 sertraline 2022-0 No 1mg 25 mg 2-23 tablet 00:00: 00 sertraline 2022-0 No 1mg 25 mg 2-23 tablet 00:00: 00 sertraline 2022-0 No 1mg 25 mg 2-23 tablet 00:00: 00 sertraline 2022-0 No 1mg 25 mg 2-23 tablet 00:00: 00 clotrimazol 2-0 No 1mg e 10 mg 2-03 nico 00:00: 00 nitrofurant 2-0 No 1mg oin 2-03 macrocrysta 00:00: l 100 mg 00 capsule clotrimazol 2-0 No 1mg e 10 mg 2-03 nico 00:00: 00 nitrofurant 2-0 No 1mg oin 2-03 macrocrysta 00:00: l 100 mg 00 capsule clotrimazol 2-0 No 1mg e 10 mg 2-03 nico 00:00: 00 nitrofurant 2-0 No 1mg oin 2-03 macrocrysta 00:00: l 100 mg 00 capsule clotrimazol 2-0 No 1mg e 10 mg 2-03 nico 00:00: 00 nitrofurant 2-0 No 1mg oin 2-03 macrocrysta 00:00: l 100 mg 00 capsule clotrimazol 2-0 No 1mg e 10 mg 2-03 nico 00:00: 00 nitrofurant 2-0 No 1mg oin 2-03 macrocrysta 00:00: l 100 mg 00 capsule clotrimazol 2-0 No 1mg e 10 mg 1-28 nico 00:00: 00 clotrimazol 2022-0 No 1mg e 10 mg 1-28 nico 00:00: 00 clotrimazol 2022-0 No 1mg e 10 mg 04-22 nico 00:00: 00 clotrimazol 0 No 1mg e 10 mg 04-22 nico 00:00: 00 clotrimazol 0 No 1mg e 10 mg 04-22 nico 00:00: 00 cephALEXin 2021- No 500mg 500 mg, Un kiara (KEFLEX) 04-10 Oral, ity of capsule 500 21:35: 21:51 ONCE, 1 [place] mg 00 :00 dose, On Medical [place] Branch 04/10/21 at 1545, MESSI
Re ason for Anti-Infec tive: Documented Infection< br>Documen kuldip Infection Site: Urine
D uration of Therapy: 7 days cephALEXin 2021- No [id number] 500mg Take 1 Univers (KEFLEX) 04-10 capsule [...] 2215, Until Discontinu ed, Routine naproxen Yes [id number] 550mg Take 1 U nivers sodium 550 6-18 tablet by ity of mg tablet 00:00: mouth [place] (two) Medical times Branch daily with meals. naproxen Yes [id number] 550mg Take 1 U nivers sodium 550 6-18 tablet by ity of mg tablet 00:00: mouth [place] (two) Medical times Branch daily with meals. naproxen Yes [id number] 550mg Take 1 U nivers sodium 550 6-18 tablet by ity of mg tablet 00:00: mouth [place] (two) Medical times Branch daily with meals. naproxen Yes [id number] 550mg Take 1 U nivers sodium 550 6-18 tablet by ity of mg tablet 00:00: mouth [place] (two) Medical times Branch daily with meals. naproxen Yes [id number] 550mg Take 1 U nivers sodium 550 18 tablet by ity of mg tablet 00:00: mouth 2 00 (two) Medical times Branch daily with meals. acetaminoph No 650mg 650 mg, U nivers en 05-05 Oral, ity of (TYLENOL) 22:45: 21:36 ONCE, 1 [place] tablet 650 00 :00 dose, Wed Medi liz mg 05/05/20 at Branch 1645, MESSI cephALEXin 2020- No [id number] 500mg Take 1 Univers 500 mg 05-05 capsule by ity of capsule 00:00: 05:59 mouth 4 00 :00 (four) Medical times Branch daily for 7 days. Clonazepam No Notes: Memor ia 1-17 (Same As: l 01:19: KlonoPIN) Clonazepam No Notes: Memor ia 1-17 (Same As: l 01:19: KlonoPIN) Clonazepam No Notes: Memor ia 1-17 (Same As: l 01:19: KlonoPIN) Clonazepam No Notes: Memor ia 1-17 (Same As: l 01:19: KlonoPIN) psyllium No 30mg/0. husk 6 8-30 65 mL gram/6 gram 00:00: oral powder psyllium No 30mg/0. husk 6 8-30 65 mL gram/6 gram 00:00: oral powder psyllium No 30mg/0. husk 6 8-30 65 mL gram/6 gram 00:00: oral powder 00 psyllium No 30mg/0. husk 6 8-30 65 mL gram/6 gram 00:00: oral powder psyllium No 30mg/0. husk 6 8-30 65 mL gram/6 gram 00:00: oral powder ibuprofen No 800 mg = 1 Me moria 800 mg oral 8-25 tab, PO, l tablet 05:53: Q8H, # 30 Cheko n 00 tab, 0 Refill(s) ibuprofen 2018-0 No 800 mg = 1 Me moria 800 mg oral 8-25 tab, PO, l tablet 05:53: Q8H, # 30 Cheko n 00 tab, 0 Refill(s) ibuprofen 2018-0 No 800 mg = 1 Me moria 800 mg oral 8-25 tab, PO, l tablet 05:53: Q8H, # 30 Cheko n 00 tab, 0 Refill(s) ibuprofen 2018-0 No 800 mg = 1 Me moria 800 mg oral 8-25 tab, PO, l tablet 05:53: Q8H, # 30 Cheko n 00 tab, 0 Refill(s) Sodium 2018-0 No 1,000 mL, Memori a Chloride 8-25 1000 l 0.9% 03:04: ml/hr, [place] (Bolus) IV 00 Infuse Over: 1 hr, Route: IV, 1,000, Drug form: INJ, ONCE, Priority: STAT, Dosing Weight 68.182 kg, Start date: 11/16/17 22:04:00 CDT, Stop date: 11/16/17 22:04:00 CDT Sodium 2018-0 No 1,000 mL, Memori a Chloride 8-25 1000 l 0.9% 03:04: ml/hr, [place] (Bolus) IV 00 Infuse Over: 1 hr, Route: IV, 1,000, Drug form: INJ, ONCE, Priority: STAT, Dosing Weight 68.182 kg, Start date: 11/16/17 22:04:00 CDT, Stop date: 11/16/17 22:04:00 CDT Sodium 2018-0 No 1,000 mL, Memori a Chloride 8-25 1000 l 0.9% 03:04: ml/hr, [place] (Bolus) IV 00 Infuse Over: 1 hr, Route: IV, 1,000, Drug form: INJ, ONCE, Priority: STAT, Dosing Weight 68.182 kg, Start date: 11/16/17 22:04:00 CDT, Stop date: 11/16/17 22:04:00 CDT Sodium 2018-0 No 1,000 mL, Memori a Chloride 8-25 1000 l 0.9% 03:04: ml/hr, [place] (Bolus) IV 00 Infuse Over: 1 hr, Route: IV, 1,000, Drug form: INJ, ONCE, Priority: STAT, Dosing Weight 68.182 kg, Start date: 11/16/17 22:04:00 CDT, Stop date: 11/16/17 22:04:00 CDT Saline No Notes: Memoria Flush 0.9% 8-25 (Same as: l 03:01: BD [place] Posiflush) Saline No Notes: Memoria Flush 0.9% 8-25 (Same as: l 03:01: BD [place] Posiflush) Saline No Notes: Memoria Flush 0.9% 8-25 (Same as: l 03:01: BD [place] Posiflush) Saline No Notes: Memoria Flush 0.9% 8-25 (Same as: l 03:01: BD [place] Posiflush) hydroxyzine No 1mg HCl 50 mg 8-16 tablet 00:00: 00 hydroxyzine No 1mg HCl 50 mg 8-16 tablet 00:00: 00 hydroxyzine No 1mg HCl 50 mg 8-16 tablet 00:00: 00 hydroxyzine No 1mg HCl 50 mg 8-16 tablet 00:00: 00 hydroxyzine No 1mg HCl 50 mg 8-16 tablet 00:00: 00 Saline No Notes: Memoria Flush 0.9% 8-08 (Same as: l 20:09: BD [place] Posiflush) Saline No Notes: Memoria Flush 0.9% 8-08 (Same as: l 20:09: BD [place] Posiflush) Saline No Notes: Memoria Flush 0.9% 8-08 (Same as: l 20:09: BD [place] Posiflush) Saline No Notes: Memoria Flush 0.9% 8-08 (Same as: l 20:09: BD [place] Posiflush) Maalox No Notes: Memoria Regular 8-03 (Same As: l Strength 14:00: Tums) [place] TAB Calcium Carbonate 500 mg = 200 mg elemental calcium Dose = mg calcium carbonate ( mg elemental calcium) Maalox No Notes: Memoria Regular 8-03 (Same As: l Strength 14:00: Tums) [place] TAB 00 Calcium Carbonate 500 mg = 200 mg elemental calcium Dose = mg calcium carbonate ( mg elemental calcium) Maalox No Notes: Memoria Regular 10-26 (Same As: l Strength 14:00: Tums) [place] TAB 00 Calcium Carbonate 500 mg = 200 mg elemental calcium Dose = mg calcium carbonate ( mg elemental calcium) Maalox No Notes: Memoria Regular 10-26 (Same As: l Strength 14:00: Tums) [place] TAB 00 Calcium Carbonate 500 mg = 200 mg elemental calcium Dose = mg calcium carbonate ( mg elemental calcium) Famotidine Yes 40 mg = 1 Me moria 40 MG Oral 8-03 tab, PO, l Tablet 07:23: Daily, # [place] [Pepcid] 00 30 tab, 0 Refill(s) Famotidine 0 Yes 40 mg = 1 Me moria 40 MG Oral 8-03 tab, PO, l Tablet 07:23: Daily, # [place] [Pepcid] 00 30 tab, 0 Refill(s) Famotidine 2018-0 Yes 40 mg = 1 Me moria 40 MG Oral 8-03 tab, PO, l Tablet 07:23: Daily, # [place] [Pepcid] 00 30 tab, 0 Refill(s) Famotidine 2017-0 Yes 40 mg = 1 Me moria 40 MG Oral 8-03 tab, PO, l Tablet 07:23: Daily, # [place] [Pepcid] 00 30 tab, 0 Refill(s) Lidocaine No Notes: Memori a Viscous 2% 8- (Same as: l mucous 06:59: Xylocaine) [place] nn membrane 00 solution Lidocaine No Notes: Memori a Viscous 2% 8-03 (Same as: l mucous 06:59: Xylocaine) [place] nn membrane 00 solution Lidocaine No Notes: Memori a Viscous 2% 8-03 (Same as: l mucous 06:59: Xylocaine) [place] nn membrane 00 solution Lidocaine No Notes: Memori a Viscous 2% 8-03 (Same as: l mucous 06:59: Xylocaine) [place]isa nn membrane 00 solution Reglan No Notes: Memoria 8- (Same as: l 06:17: Reglan) [place] Reglan No Notes: Memoria 8 (Same as: l 06:17: Reglan) [place] Reglan No Notes: Memoria 8 (Same as: l 06:17: Reglan) [place] Reglan No Notes: Memoria 8 (Same as: l 06:17: Reglan) [place] 00 Maalox No Notes: Memoria Regular 10-26 (Same As: l Strength 06:12: Tums) [place] TAB 00 Calcium Carbonate 500 mg = 200 mg elemental calcium Dose = mg calcium carbonate ( mg elemental calcium) Maalox No Notes: Memoria Regular 10-26 (Same As: l Strength 06:12: Tums) [place] TAB 00 Calcium Carbonate 500 mg = 200 mg elemental calcium Dose = mg calcium carbonate ( mg elemental calcium) Maalox No Notes: Memoria Regular 10-26 (Same As: l Strength 06:12: Tums) [place] TAB 00 Calcium Carbonate 500 mg = 200 mg elemental calcium Dose = mg calcium carbonate ( mg elemental calcium) Maalox No Notes: Memoria Regular 10-26 (Same As: l Strength 06:12: Tums) [place] TAB 00 Calcium Carbonate 500 mg = 200 mg elemental calcium Dose = mg calcium carbonate ( mg elemental calcium) Aspirin No Notes: Memoria 8- Take with l 04:18: food. [place] 00 Aspirin No Notes: Memoria 8-03 Take with l 04:18: food. Aspirin No Notes: Memoria 8- Take with l 04:18: food. Aspirin No Notes: Memoria 8- Take with l 04:18: food. citalopram No 1mg 20 mg 10-25 tablet 00:00: 00 citalopram 2018-0 No 1mg 20 mg 8-02 tablet 00:00: 00 citalopram 2018-0 No 1mg 20 mg 8-02 tablet 00:00: 00 citalopram 2018-0 No 1mg 20 mg 8-02 tablet 00:00: 00 citalopram 2018-0 No 1mg 20 mg 8-02 tablet 00:00: 00 ranitidine 2018-0 No 1mg 150 mg 7-30 tablet 00:00: 00 ranitidine 2018-0 No 1mg 150 mg 7-30 tablet 00:00: 00 ranitidine 2018-0 No 1mg 150 mg 7-30 tablet 00:00: 00 ranitidine 2018-0 No 1mg 150 mg 7-30 tablet 00:00: 00 ranitidine 2018-0 No 1mg 150 mg 7-30 tablet 00:00: 00 ketOROLAC 2018-0 No 30 mg, Memori a 30 mg/mL 7- Route: l injectable 17:11: IVP, Drug He rmann solution 00 form: INJ, ONCE, Dosing Weight 76, kg, Priority: STAT, Start date: 10/13/17 12:11:00 CDT, Stop date: 10/13/17 12:11:00 CDT ketOROLAC 2018-0 No 30 mg, Memori a 30 mg/mL 7- Route: l injectable 17:11: IVP, Drug He rmann solution 00 form: INJ, ONCE, Dosing Weight 76, kg, Priority: STAT, Start date: 10/13/17 12:11:00 CDT, Stop date: 10/13/17 12:11:00 CDT ketOROLAC 2018-0 No 30 mg, Memori a 30 mg/mL 7- Route: l injectable 17:11: IVP, Drug He rmann solution 00 form: INJ, ONCE, Dosing Weight 76, kg, Priority: STAT, Start date: 10/13/17 12:11:00 CDT, Stop date: 10/13/17 12:11:00 CDT ketOROLAC 2018-0 No 30 mg, Memori a 30 mg/mL 7- Route: l injectable 17:11: IVP, Drug He rmann solution 00 form: INJ, ONCE, Dosing Weight 76, kg, Priority: STAT, Start date: 10/13/17 12:11:00 CDT, Stop date: 10/13/17 12:11:00 CDT naproxen 2018-0 No 500 mg = 1 Mem oria 500 mg oral 7-21 tab, PO, l tablet 17:05: Q12H, PRN Cheko n 00 Pain, X 10 day, # 20 tab, 0 Refill(s) naproxen 2018-0 No 500 mg = 1 Mem oria 500 mg oral 7-21 tab, PO, l tablet 17:05: Q12H, PRN Cheko n 00 Pain, X 10 day, # 20 tab, 0 Refill(s) naproxen 2018-0 No 500 mg = 1 Mem oria 500 mg oral 7-21 tab, PO, l tablet 17:05: Q12H, PRN Che[place] n 00 Pain, X 10 day, # 20 tab, 0 Refill(s) naproxen 2017-0 No 500 mg = 1 Mem oria 500 mg oral 7-21 tab, PO, l tablet 17:05: Q12H, PRN Che[place] n 00 Pain, X 10 day, # 20 tab, 0 Refill(s) Morphine 2018-0 No 2 mg, 1 Memori a 7-21 mL, Route: l 14:54: IVP, Drug [place] 00 form: SOLN, ONCE, Dosing Weight 76, kg, Priority: STAT, Start date: 10/13/17 9:54:00 CDT, Stop date: 10/13/17 9:54:00 CDT Ondansetron 2017-0 No Notes: Yamil brandi 7-21 (Same as: l 14:54: Zofran) [place] 00 MEDICATION WASTE Product Size: 4 mg Product Wasted: ___ mg Sodium 2018-0 No 1,000 mL, Memori a Chloride 7-21 1000 l 0.9% 14:54: ml/hr, [place] (Bolus) IV 00 Infuse Over: 1 hr, Route: IV, 1,000, Drug form: INJ, ONCE, Priority: STAT, Dosing Weight 76 kg, Start date: 10/13/17 9:54:00 CDT, Stop date: 10/13/17 9:54:00 CDT Saline 2017-0 No Notes: Memoria Flush 0.9% 7-21 (Same as: l 14:54: BD [place] 00 Posiflush) Morphine 2018-0 No 2 mg, 1 Memori a 7-21 mL, Route: l 14:54: IVP, Drug [place] form: SOLN, ONCE, Dosing Weight 76, kg, Priority: STAT, Start date: 10/13/17 9:54:00 CDT, Stop date: 10/13/17 9:54:00 CDT Ondansetron 2018-0 No Notes: Yamil brandi 7-21 (Same as: l 14:54: Zofran) [place] 00 MEDICATION WASTE Product Size: 4 mg Product Wasted: ___ mg Sodium 2018-0 No 1,000 mL, Memori a Chloride 7-21 1000 l 0.9% 14:54: ml/hr, [place] (Bolus) IV 00 Infuse Over: 1 hr, Route: IV, 1,000, Drug form: INJ, ONCE, Priority: STAT, Dosing Weight 76 kg, Start date: 10/13/17 9:54:00 CDT, Stop date: 10/13/17 9:54:00 CDT Saline 2018-0 No Notes: Memoria Flush 0.9% 7-21 (Same as: l 14:54: BD [place] Posiflush) Morphine 2018-0 No 2 mg, 1 Memori a 7-21 mL, Route: l 14:54: IVP, Drug [place] 00 form: SOLN, ONCE, Dosing Weight 76, kg, Priority: STAT, Start date: 10/13/17 9:54:00 CDT, Stop date: 10/13/17 9:54:00 CDT Ondansetron 2018-0 No Notes: Yamil brandi 7-21 (Same as: l 14:54: Zofran) [place] 00 MEDICATION WASTE Product Size: 4 mg Product Wasted: ___ mg Sodium 2018-0 No 1,000 mL, Memori a Chloride 7-21 1000 l 0.9% 14:54: ml/hr, [place] (Bolus) IV 00 Infuse Over: 1 hr, Route: IV, 1,000, Drug form: INJ, ONCE, Priority: STAT, Dosing Weight 76 kg, Start date: 10/13/17 9:54:00 CDT, Stop date: 10/13/17 9:54:00 CDT Saline No Notes: Memoria Flush 0.9% 7-21 (Same as: l 14:54: BD [place] Posiflush) Morphine No 2 mg, 1 Memori a 7-21 mL, Route: l 14:54: IVP, Drug [place] 00 form: SOLN, ONCE, Dosing Weight 76, kg, Priority: STAT, Start date: 10/13/17 9:54:00 CDT, Stop date: 10/13/17 9:54:00 CDT Ondansetron No Notes: Yamil brandi 7-21 (Same as: l 14:54: Zofran) [place] 00 MEDICATION WASTE Product Size: 4 mg Product Wasted: ___ mg Sodium No 1,000 mL, Memori a Chloride 7-21 1000 l 0.9% 14:54: ml/hr, [place] (Bolus) IV 00 Infuse Over: 1 hr, Route: IV, 1,000, Drug form: INJ, ONCE, Priority: STAT, Dosing Weight 76 kg, Start date: 10/13/17 9:54:00 CDT, Stop date: 10/13/17 9:54:00 CDT Saline No Notes: Memoria Flush 0.9% 7-21 (Same as: l 14:54: BD [place] Posiflush) docusate Yes 250mg Take 1 Univer s [...] 00 (four) Medical times Branch daily. docusate Yes 250mg Take 1 Univer s [...] s 00 (four) Medical times Branch daily. metoprolol 2018-0 No 1mg tartrate 25 7-01 mg tablet 00:00: 00 metoprolol 2018-0 No 1mg tartrate 25 7-01 mg tablet 00:00: 00 metoprolol 2018-0 No 1mg tartrate 25 7-01 mg tablet 00:00: 00 metoprolol 2018-0 No 1mg tartrate 25 7-01 mg tablet 00:00: 00 metoprolol 2018-0 No 1mg tartrate 25 7-01 mg tablet 00:00: 00 amoxicillin 2018-0 Yes 500mg Take 1 Uni [...] 00 every 8 Medical (eight) Branch hours. amoxicillin 2018-0 Yes 500mg Take 1 Uni [...] hours as needed for Pain (scale 4-6). traMADOL 50 2018-0 Yes 50mg Take 1 [...] hours as needed for Pain (scale 4-6). tramadol 2017-0 Yes 50 mg = 1 Yamil brandi hydrochlori 2-07 tab, PO, l de 50 MG 19:27: Q6H, PRN [place] nn Oral Tablet 00 Pain, X 10 day, # 40 tab, 0 Refill(s) tramadol 2017-0 Yes 50 mg = 1 Yamil brandi hydrochlori 2-07 tab, PO, l de 50 MG 19:27: Q6H, PRN [place] nn Oral Tablet 00 Pain, X 10 day, # 40 tab, 0 Refill(s) tramadol 2017-0 Yes 50 mg = 1 Yamil brandi hydrochlori 2-07 tab, PO, l de 50 MG 19:27: Q6H, PRN [place] nn Oral Tablet 00 Pain, X 10 day, # 40 tab, 0 Refill(s) tramadol 2017-0 Yes 50 mg = 1 Yamil brandi hydrochlori 2-07 tab, PO, l de 50 MG 19:27: Q6H, PRN [place] nn Oral Tablet 00 Pain, X 10 day, # 40 tab, 0 Refill(s) Mylicon No Notes: Memoria 2- (Same as: l 19:00: Mylicon) [place] licon No Notes: Memoria 2- (Same as: l 19:00: Mylicon) [place] licon No Notes: Memoria 2-06 (Same as: l 19:00: Mylicon) [place] Mylicon No Notes: Memoria 2- (Same as: l 19:00: Mylicon) [place] 00 Ondansetron No Notes: Yamil brandi 2- (Same as: l 16:57: Zofran) [place] 00 MEDICATION WASTE Product Size: 4 mg Product Wasted: ___ mg Morphine No Notes: Memoria 2- (Same l 16:57: as:MORPhin [place] 00 e Sulfate) Docusate No Notes: Memoria 2- (Same as: l 16:57: Colace) [place] (Do Not Crush) Diphenhydra No Notes: Yamil brandi mine 2- (Same as: l 16:57: Benadryl) [place] Calcium No 1,000 mL, Memor ia Chloride 05-01 Rate: 125 l 0.0014 16:57: ml/hr, [place] MEQ/ML / 00 Infuse Potassium over: 8 Chloride hr, Route: 0.004 IV, Dosing MEQ/ML / Weight 75 Sodium kg, Total Chloride Volume: 0.103 1,000, MEQ/ML / Start Sodium date: Lactate 05/01/16 0.028 10:57:00 MEQ/ML [employer], Injectable Duration: Solution 30 day, Stop date: 05/31/16 10:56:00 [employer] Ondansetron No Notes: Yamil brandi 2- (Same as: l 16:57: Zofran) [place] 00 MEDICATION WASTE Product Size: 4 mg Product Wasted: ___ mg Morphine No Notes: Memoria 2- (Same l 16:57: as:MORPhin [place] 00 e Sulfate) Docusate No Notes: Memoria 2-06 (Same as: l 16:57: Colace) [place] 00 (Do Not Crush) Diphenhydra No Notes: Yamil brandi mine 2-06 (Same as: l 16:57: Benadryl) [place] Calcium 2016-0 No 1,000 mL, Memor ia Chloride 2-06 Rate: 125 l 0.0014 16:57: ml/hr, [place] MEQ/ML / 00 Infuse Potassium over: 8 Chloride hr, Route: 0.004 IV, Dosing MEQ/ML / Weight 75 Sodium kg, Total Chloride Volume: 0.103 1,000, MEQ/ML / Start Sodium date: Lactate 05/01/16 0.028 10:57:00 MEQ/ML [employer], Injectable Duration: Solution 30 day, Stop date: 05/31/16 10:56:00 [employer] Ondansetron No Notes: Yamil brandi 2-06 (Same as: l 16:57: Zofran) [place] 00 MEDICATION WASTE Product Size: 4 mg Product Wasted: ___ mg Morphine No Notes: Memoria 2-06 (Same l 16:57: as:MORPhin [place] 00 e Sulfate) Docusate No Notes: Memoria 2-06 (Same as: l 16:57: Colace) [place] 00 (Do Not Crush) Diphenhydra No Notes: Yamil brandi mine 2-06 (Same as: l 16:57: Benadryl) [place] 00 Calcium 2016-0 No 1,000 mL, Memor ia Chloride 2-06 Rate: 125 l 0.0014 16:57: ml/hr, [place] MEQ/ML / 00 Infuse Potassium over: 8 Chloride hr, Route: 0.004 IV, Dosing MEQ/ML / Weight 75 Sodium kg, Total Chloride Volume: 0.103 1,000, MEQ/ML / Start Sodium date: Lactate 05/01/16 0.028 10:57:00 MEQ/ML [employer], Injectable Duration: Solution 30 day, Stop date: 05/31/16 10:56:00 [employer] Ondansetron No Notes: Yamil brandi 2-06 (Same as: l 16:57: Zofran) MEDICATION WASTE Product Size: 4 mg Product Wasted: ___ mg Morphine No Notes: Memoria 05-01 (Same l 16:57: as:MORPhin e Sulfate) Docusate No Notes: Memoria 05-01 (Same as: l 16:57: Colace) (Do Not Crush) Diphenhydra No Notes: Yamil brandi mine 05-01 (Same as: l 16:57: Benadryl) Calcium No 1,000 mL, Memor ia Chloride 05-01 Rate: 125 l 0.0014 16:57: ml/hr, MEQ/ML / 00 Infuse Potassium over: 8 Chloride hr, Route: 0.004 IV, Dosing MEQ/ML / Weight 75 Sodium kg, Total Chloride Volume: 0.103 1,000, MEQ/ML / Start Sodium date: Lactate 05/01/16 0.028 10:57:00 MEQ/ML [employer], Injectable Duration: Solution 30 day, Stop date: 05/31/16 10:56:00 [employer] ondansetron No Route: IV, Memoria (ANES) 05-01 Drug form: l 16:05: INJ, ONCE, Stop date: 05/01/16 10:05:00 [employer] glycopyrrol No Route: IV, Memoria ate (ANES) 05-01 Drug form: l 16:05: INJ, ONCE, Stop date: 05/01/16 10:05:00 [employer] neostigmine No Route: IV, Memoria (ANES) 05-01 Drug form: l 16:05: INJ, ONCE, Stop date: 05/01/16 10:05:00 [employer] ketOROLAC No IV, ONCE Yamil brandi (ANES) 05-01 l 16:05: ondansetron No Route: IV, Memoria (ANES) 2 Drug form: l 16:05: INJ, ONCE, Stop date: 05/01/16 10:05:00 [employer] glycopyrrol No Route: IV, Memoria ate (ANES) 05-01 Drug form: l 16:05: INJ, ONCE, Stop date: 05/01/16 10:05:00 [employer] neostigmine 2017-0 No Route: IV, Memoria (ANES) 2 Drug form: l 16:05: INJ, ONCE, Stop date: 05/01/16 10:05:00 [employer] ketOROLAC 2016-0 No IV, ONCE Yamil brandi (ANES) 05-01 l 16:05: ondansetron 0 No Route: IV, Memoria (ANES) 05-01 Drug form: l 16:05: INJ, ONCE, Stop date: 05/01/16 10:05:00 [employer] glycopyrrol 2016-0 No Route: IV, Memoria ate (ANES) 05-01 Drug form: l 16:05: INJ, ONCE, Stop date: 05/01/16 10:05:00 [employer] neostigmine 2016-0 No Route: IV, Memoria (ANES) 05-01 Drug form: l 16:05: INJ, ONCE, Stop date: 05/01/16 10:05:00 [employer] ketOROLAC 2016-0 No IV, ONCE Yamil brandi (ANES) 05-01 l 16:05: ondansetron No Route: IV, Memoria (ANES) 05-01 Drug form: l 16:05: INJ, ONCE, Stop date: 05/01/16 10:05:00 [employer] glycopyrrol 2016-0 No Route: IV, Memoria ate (ANES) 05-01 Drug form: l 16:05: INJ, ONCE, Stop date: 05/01/16 10:05:00 [employer] neostigmine 2016-0 No Route: IV, Memoria (ANES) 2 Drug form: l 16:05: INJ, ONCE, Stop date: 05/01/16 10:05:00 [employer] ketOROLAC 2016-0 No IV, ONCE Yamil brandi (ANES) 05-01 l 16:05: Hydromorpho No Notes: Yamil brandi ne 2-06 Same as l 16:01: Dilaudid Flumazenil No Notes: Memor ia 2-06 (Same as: l 16:01: Romazicon) [place] 00 Naloxone No Notes: Memoria 2-06 Same as l 16:01: Narcan Ondansetron No Notes: Yamil brandi 2-06 (Same as: l 16:01: Zofran) MEDICATION WASTE Product Size: 4 mg Product Wasted: ___ mg Morphine No Notes: Memoria 2- (Same l 16:01: as:MORPhin e Sulfate) Acetaminoph No 1,000 mg, M emoria en 05-01 Route: l 16:01: IVPB, Drug form: INJ, ONCE, Dosing Weight 74.091, kg, PRN Pain Score 1-3, Start date: 05/01/16 10:01:00 [employer], Duration: 1 doses or times, Stop date: Limited # of times Ketorolac No 4 days Memor ia 2-06 l 16:01: MEDICATION WASTE Product Size: 30 mg Product Wasted: ___ mg Calcium No 1,000 mL, Memor ia Chloride - Rate: 125 l 0.0014 16:01: ml/hr, MEQ/ML / 00 Infuse Potassium over: 8 Chloride hr, Route: 0.004 IV, Dosing MEQ/ML / Weight 75 Sodium kg, Total Chloride Volume: 0.103 1,000, MEQ/ML / Start Sodium date: Lactate 05/01/16 0.028 10:01:00 MEQ/ML [employer], Injectable Duration: Solution 30 day, Stop date: 05/31/16 10:00:00 [employer] Labetalol No Notes: Memori a 2-06 (Same as: l 16:01: Normodyne, Trandate) Push over 2 minutes Give bolus over 2-3 minutes. Hydromorpho No Notes: Yamil brandi ne 2-06 Same as l 16:01: Dilaudid Flumazenil No Notes: Memor ia 2-06 (Same as: l 16:01: Romazicon) Naloxone No Notes: Memoria 2-06 Same as l 16:01: Narcan Ondansetron No Notes: Yamil brandi 2-06 (Same as: l 16:01: Zofran) MEDICATION WASTE Product Size: 4 mg Product Wasted: ___ mg Morphine No Notes: Memoria 2-06 (Same l 16:01: as:MORPhin e Sulfate) Acetaminoph No 1,000 mg, M emoria en 05-01 Route: l 16:01: IVPB, Drug form: INJ, ONCE, Dosing Weight 74.091, kg, PRN Pain Score 1-3, Start date: 05/01/16 10:01:00 [employer], Duration: 1 doses or times, Stop date: Limited # of times Ketorolac No 4 days Memor ia 2-06 l 16:01: MEDICATION WASTE Product Size: 30 mg Product Wasted: ___ mg Calcium 2017 No 1,000 mL, Memor ia Chloride 05-01 Rate: 125 l 0.0014 16:01: ml/hr, MEQ/ML / Infuse Potassium over: 8 Chloride hr, Route: 0.004 IV, Dosing MEQ/ML / Weight 75 Sodium kg, Total Chloride Volume: 0.103 1,000, MEQ/ML / Start Sodium date: Lactate 05/01/16 0.028 10:01:00 MEQ/ML [employer], Injectable Duration: Solution 30 day, Stop date: 05/31/16 10:00:00 [employer] Labetalol No Notes: Memori a 2-06 (Same as: l 16:01: Normodyne, Trandate) Push over 2 minutes Give bolus over 2-3 minutes. Hydromorpho No Notes: Yamil brandi ne 2-06 Same as l 16:01: Dilaudid Flumazenil No Notes: Memor ia 2-06 (Same as: l 16:01: Romazicon) Naloxone No Notes: Memoria 2-06 Same as l 16:01: Narcan Ondansetron No Notes: Aymil brandi 2-06 (Same as: l 16:01: Zofran) [place] 00 MEDICATION WASTE Product Size: 4 mg Product Wasted: ___ mg Morphine No Notes: Memoria 05-01 (Same l 16:01: as:MORPhin [place] 00 e Sulfate) Acetaminoph No 1,000 mg, M audraria en 05-01 Route: l 16:01: IVPB, Drug form: INJ, ONCE, Dosing Weight 74.091, kg, PRN Pain Score 1-3, Start date: 05/01/16 10:01:00 [employer], Duration: 1 doses or times, Stop date: Limited # of times Ketorolac No 4 days Memor ia 05-01 l 16:01: MEDICATION [place] 00 WASTE Product Size: 30 mg Product Wasted: ___ mg Calcium No 1,000 mL, Memor ia Chloride 05-01 Rate: 125 l 0.0014 16:01: ml/hr, [place] MEQ/ML / 00 Infuse Potassium over: 8 Chloride hr, Route: 0.004 IV, Dosing MEQ/ML / Weight 75 Sodium kg, Total Chloride Volume: 0.103 1,000, MEQ/ML / Start Sodium date: Lactate 05/01/16 0.028 10:01:00 MEQ/ML [employer], Injectable Duration: Solution 30 day, Stop date: 05/31/16 10:00:00 [employer] Labetalol No Notes: Memori a 05-01 (Same as: l 16:01: Normodyne, Trandate) Push over 2 minutes Give bolus over 2-3 minutes. Calcium No 1,000 mL, Memor ia Chloride 05-01 Rate: 125 l 0.0014 16:01: ml/hr, [place] MEQ/ML / 00 Infuse Potassium over: 8 Chloride hr, Route: 0.004 IV, Dosing MEQ/ML / Weight 75 Sodium kg, Total Chloride Volume: 0.103 1,000, MEQ/ML / Start Sodium date: Lactate 05/01/16 0.028 10:01:00 MEQ/ML [employer], Injectable Duration: Solution 30 day, Stop date: 05/31/16 10:00:00 [employer] Labetalol No Notes: Memori a 05-01 (Same as: l 16:01: Normodyne, [place] 00 Trandate) Push over 2 minutes Give bolus over 2-3 minutes. Hydromorpho No Notes: Yamil brandi ne 05-01 Same as l 16:01: Dilaudid Flumazenil No Notes: Memor ia 05-01 (Same as: l 16:01: Romazicon) Naloxone No [...] Pain Score 1-3, Start date: 05/01/16 10:01:00 [employer], Duration: 1 doses or times, Stop date: Limited # of times Ketorolac No 4 days Memor ia 05-01 l 16:01: MEDICATION WASTE Product Size: 30 mg Product Wasted: ___ mg acetaminoph No Route: IV, Memoria en (ANES) 05-01 Drug form: l (ANES) 15:38: INJ, Start Elisa date: 05/01/16 9:38:00 [employer], Stop date: 05/01/16 10:38:00 [employer] acetaminoph No Route: IV, Memoria en (ANES) 2 Drug form: l (ANES) 15:38: INJ, Start Elisa date: 05/01/16 9:38:00 [employer], Stop date: 05/01/16 10:38:00 [employer] acetaminoph No Route: IV, Memoria en (ANES) 2 Drug form: l (ANES) 15:38: INJ, Start Elisa nn date: 05/01/16 9:38:00 [employer], Stop date: 05/01/16 10:38:00 [employer] acetaminoph 2017-0 No Route: IV, Memoria en (ANES) 2- Drug form: l (ANES) 15:38: INJ, Start Elisa nn date: 05/01/16 9:38:00 [employer], Stop date: 05/01/16 10:38:00 [employer] hydromorpho 2017-0 No Route: IV, Memoria ne (ANES) 2 Drug form: l 15:02: INJ, ONCE, [place] Stop date: 05/01/16 9:02:00 [employer] hydromorpho 2017-0 No Route: IV, Memoria ne (ANES) 05-01 Drug form: l 15:02: INJ, ONCE, [place] 00 Stop date: 05/01/16 9:02:00 [employer] hydromorpho 2017-0 No Route: IV, Memoria ne (ANES) 2 Drug form: l 15:02: INJ, ONCE, [place] 00 Stop date: 05/01/16 9:02:00 [employer] hydromorpho 2017-0 No Route: IV, Memoria ne (ANES) 2 Drug form: l 15:02: INJ, ONCE, [place] Stop date: 05/01/16 9:02:00 [employer] fentaNYL 2017-0 No Route: IV, Mem oria (ANES) 2- Drug form: l 14:37: INJ, ONCE, [place] Stop date: 05/01/16 8:37:00 [employer] lidocaine 2017-0 No Route: IV, Me moria (ANES) 2- Drug form: l 14:37: INJ, ONCE, [place] Stop date: 05/01/16 8:37:00 [employer] propofol 2017-0 No Route: IV, Mem oria (ANES) 2- Drug form: l 14:37: INJ, ONCE, [place] Stop date: 05/01/16 8:37:00 [employer] midazolam 2017-0 No Route: IV, Me moria (ANES) 2- Drug form: l 14:37: SOLN, [place] 00 ONCE, Stop date: 05/01/16 8:37:00 [employer] rocuronium 2017-0 No Route: IV, M emoria (ANES) 2- Drug form: l 14:37: INJ, ONCE, Stop date: 05/01/16 8:37:00 [employer] metoclopram 2017-0 No Route: IV, Memoria eda (ANES) 2- Drug form: l 14:37: INJ, ONCE, Stop date: 05/01/16 8:37:00 [employer] dexamethaso 2017-0 No Route: IV, Memoria ne (ANES) 2- Drug form: l 14:37: INJ, ONCE, Stop date: 05/01/16 8:37:00 [employer] fentaNYL 2017-0 No Route: IV, Mem oria (ANES) 2 Drug form: l 14:37: INJ, ONCE, Stop date: 05/01/16 8:37:00 [employer] lidocaine 2017-0 No Route: IV, Me moria (ANES) 2- Drug form: l 14:37: INJ, ONCE, Stop date: 05/01/16 8:37:00 [employer] propofol 2017-0 No Route: IV, Mem oria (ANES) 2- Drug form: l 14:37: INJ, ONCE, Stop date: 05/01/16 8:37:00 [employer] midazolam 2017-0 No Route: IV, Me moria (ANES) 2- Drug form: l 14:37: SOLN, ONCE, Stop date: 05/01/16 8:37:00 [employer] rocuronium 2017-0 No Route: IV, M emoria (ANES) 2- Drug form: l 14:37: INJ, ONCE, Stop date: 05/01/16 8:37:00 [employer] metoclopram 2017-0 No Route: IV, Memoria eda (ANES) 2- Drug form: l 14:37: INJ, ONCE, Stop date: 05/01/16 8:37:00 [employer] dexamethaso 2017-0 No Route: IV, Memoria ne (ANES) 2- Drug form: l 14:37: INJ, ONCE, Stop date: 05/01/16 8:37:00 [employer] fentaNYL 2017-0 No Route: IV, Mem oria (ANES) 2- Drug form: l 14:37: INJ, ONCE, Stop date: 05/01/16 8:37:00 [employer] lidocaine 2017-0 No Route: IV, Me moria (ANES) 2- Drug form: l 14:37: INJ, ONCE, Stop date: 05/01/16 8:37:00 [employer] propofol 2017-0 No Route: IV, Mem oria (ANES) 2- Drug form: l 14:37: INJ, ONCE, Stop date: 05/01/16 8:37:00 [employer] midazolam 2017-0 No Route: IV, Me moria (ANES) 2- Drug form: l 14:37: SOLN, ONCE, Stop date: 05/01/16 8:37:00 [employer] rocuronium 2017-0 No Route: IV, M emoria (ANES) 2 Drug form: l 14:37: INJ, ONCE, Stop date: 05/01/16 8:37:00 [employer] metoclopram 2017-0 No Route: IV, Memoria eda (ANES) 2- Drug form: l 14:37: INJ, ONCE, Stop date: 05/01/16 8:37:00 [employer] dexamethaso 2017-0 No Route: IV, Memoria ne (ANES) 2- Drug form: l 14:37: INJ, ONCE, Stop date: 05/01/16 8:37:00 [employer] dexamethaso 2017-0 No Route: IV, Memoria ne (ANES) 2- Drug form: l 14:37: INJ, ONCE, Stop date: 05/01/16 8:37:00 [employer] fentaNYL 2017-0 No Route: IV, Mem oria (ANES) 2-06 Drug form: l 14:37: INJ, ONCE, Stop date: 05/01/16 8:37:00 [employer] lidocaine 2017-0 No Route: IV, Me moria (ANES) 2-06 Drug form: l 14:37: INJ, ONCE, Stop date: 05/01/16 8:37:00 [employer] propofol 2017-0 No Route: IV, Mem oria (ANES) 05-01 Drug form: l 14:37: INJ, ONCE, Stop date: 05/01/16 8:37:00 [employer] midazolam 2017-0 No Route: IV, Me moria (ANES) 2 Drug form: l 14:37: SOLN, Arthur 00 ONCE, Stop date: 05/01/16 8:37:00 [employer] rocuronium 2017-0 No Route: IV, M emoria (ANES) 05-01 Drug form: l 14:37: INJ, ONCE, Stop date: 05/01/16 8:37:00 [employer] metoclopram 2017-0 No Route: IV, Memoria eda (ANES) 05-01 Drug form: l 14:37: INJ, ONCE, Stop date: 05/01/16 8:37:00 [employer] famotidine 2017-0 No Route: IV, M emoria (ANES) 05-01 Drug form: l 14:22: INJ, ONCE, Stop date: 05/01/16 8:22:00 [employer] phenylephri 2017-0 No Route: IV, Memoria ne (ANES) 05-01 Drug form: l 14:22: INJ, ONCE, Stop date: 05/01/16 8:22:00 [employer] famotidine 2017-0 No Route: IV, M emoria (ANES) 05-01 Drug form: l 14:22: INJ, ONCE, Stop date: 05/01/16 8:22:00 [employer] phenylephri 2017-0 No Route: IV, Memoria ne (ANES) 05-01 Drug form: l 14:22: INJ, ONCE, Stop date: 05/01/16 8:22:00 [employer] famotidine 2017-0 No Route: IV, M emoria (ANES) 2 Drug form: l 14:22: INJ, ONCE, Stop date: 05/01/16 8:22:00 [employer] phenylephri 2017-0 No Route: IV, Memoria ne (ANES) 2 Drug form: l 14:22: INJ, ONCE, Stop date: 05/01/16 8:22:00 [employer] famotidine No Route: IV, M emoria (ANES) 2 Drug form: l 14:22: INJ, ONCE, Stop date: 05/01/16 8:22:00 [employer] phenylephri No Route: IV, Memoria ne (ANES) 2 Drug form: l 14:22: INJ, ONCE, Stop date: 05/01/16 8:22:00 [employer] ceFAZolin No Route: IV, Me moria (ANES) 2 Drug form: l 14:11: INJ, ONCE, Stop date: 05/01/16 8:11:00 [employer] ceFAZolin No Route: IV, Me moria (ANES) 2 Drug form: l 14:11: INJ, ONCE, Stop date: 05/01/16 8:11:00 [employer] [email or web address] No Route: IV, Me moria (ANES) 2 Drug form: l 14:11: INJ, ONCE, Stop date: 05/01/16 8:11:00 [employer] ceFAZolin No Route: IV, Me moria (ANES) 2 Drug form: l 14:11: INJ, ONCE, Stop date: 05/01/16 8:11:00 [employer] HEL[employer] LR 1000 mL No Route: IV, M emoria INJ (ANES) 2- Total l 13:35: Volume: Arthur 00 1,000, Start date: 05/01/16 7:35:00 [employer] HELPER, Stop date: 05/01/16 8:35:00 [employer] HEL[employer] LR 1000 mL No Route: IV, M emoria INJ (ANES) 2- Total l 13:35: Volume: Arthur 00 1,000, Start date: 05/01/16 7:35:00 [employer] HELPER, Stop date: 05/01/16 8:35:00 [employer] HEL[employer] LR 1000 mL No Route: IV, M emoria INJ (ANES) 2- Total l 13:35: Volume: Arthur 00 1,000, Start date: 05/01/16 7:35:00 [employer] HEL[employer], Stop date: 05/01/16 8:35:00 [employer] HEL[employer] LR 1000 mL 2017-0 No Route: IV, M emoria INJ (ANES) 2-06 Total l 13:35: Volume: [place] 00 1,000, Start date: 05/01/16 7:35:00 [employer] HELPER, Stop date: 05/01/16 8:35:00 [employer] Calcium 2017-0 No 1,000 mL, Memor ia Chloride 2-06 Rate: 25 l 0.0014 12:57: ml/hr, [place] MEQ/ML / 00 Infuse Potassium over: 40 Chloride hr, Route: 0.004 IV, Dosing MEQ/ML / Weight Sodium 74.091 kg, Chloride Total 0.103 Volume: MEQ/ML / 1,000, Sodium Start Lactate date: 0.028 05/01/16 MEQ/ML 6:57:00 Injectable [employer] HELPER, Solution Duration: 30 day, Stop date: 05/31/16 6:56:00 [employer] Calcium 2017-0 No 1,000 mL, Memor ia Chloride 2-06 Rate: 25 l 0.0014 12:57: ml/hr, [place] MEQ/ML / 00 Infuse Potassium over: 40 Chloride hr, Route: 0.004 IV, Dosing MEQ/ML / Weight Sodium 74.091 kg, Chloride Total 0.103 Volume: MEQ/ML / 1,000, Sodium Start Lactate date: 0.028 05/01/16 MEQ/ML 6:57:00 Injectable [facility] HELPER, Solution Duration: 30 day, Stop date: 05/31/16 6:56:00 [employer] Calcium 2017-0 No 1,000 mL, Memor ia Chloride 2-06 Rate: 25 l 0.0014 12:57: ml/hr, Arthur MEQ/ML / 00 Infuse Potassium over: 40 Chloride hr, Route: 0.004 IV, Dosing MEQ/ML / Weight Sodium 74.091 kg, Chloride Total 0.103 Volume: MEQ/ML / 1,000, Sodium Start Lactate date: 0.028 05/01/16 MEQ/ML 6:57:00 Injectable [employer] HELPER, Solution Duration: 30 day, Stop date: 05/31/16 6:56:00 [employer] Calcium 2017-0 No 1,000 mL, Memor ia Chloride 2-06 Rate: 25 l 0.0014 12:57: ml/hr, Arthur MEQ/ML / 00 Infuse Potassium over: 40 Chloride hr, Route: 0.004 IV, Dosing MEQ/ML / Weight Sodium 74.091 kg, Chloride Total 0.103 Volume: MEQ/ML / 1,000, Sodium Start Lactate date: 0.028 05/01/16 MEQ/ML 6:57:00 Injectable [employer] HELPER, Solution Duration: 30 day, Stop date: 05/31/16 6:56:00 [employer] HEL[employer] ceFAZolin No Notes: Memori a 2-06 Same as: l 12:00: Ancef Arthur 00 BD Normal No Notes: Memori a Saline 2-06 (Same as: l Flush 12:00: BD [place] Posiflush) ceFAZolin No Notes: Memori a 2-06 Same as: l 12:00: Ancef [place] 00 BD Normal No Notes: Memori a Saline 2-06 (Same as: l Flush 12:00: BD [place] 00 Posiflush) ceFAZolin No Notes: Memori a 2-06 Same as: l 12:00: Ancef [place] 00 BD Normal No Notes: Memori a Saline 2-06 (Same as: l Flush 12:00: BD [place] 00 Posiflush) ceFAZolin No Notes: Memori a 2-06 Same as: l 12:00: Ancef Arthur 00 BD Normal No Notes: Memori a Saline 2-06 (Same as: l Flush 12:00: BD [place] 00 Posiflush) Esomeprazol Yes 20 mg = 1 M emoria e 20 MG 1-30 cap, PO, l Enteric 16:18: Daily, 0 Cheko n Coated 00 Refill(s) Capsule [Nexium] ferrous No 325 mg = 1 Yamil brandi sulfate 325 1-30 tab, PO, l mg oral 16:18: Daily, 0 Chkeo n enteric 00 Refill(s) coated tablet Esomeprazol Yes 20 mg = 1 M emoria e 20 MG 1-30 cap, PO, l Enteric 16:18: Daily, 0 Cheko n Coated 00 Refill(s) Capsule [Nexium] ferrous No 325 mg = 1 Yamil brandi sulfate 325 1-30 tab, PO, l mg oral 16:18: Daily, 0 Cheko n enteric 00 Refill(s) coated tablet Esomeprazol Yes 20 mg = 1 M emoria e 20 MG 1-30 cap, PO, l Enteric 16:18: Daily, 0 Cheko n Coated 00 Refill(s) Capsule [Nexium] ferrous No 325 mg = 1 Yamil brandi sulfate 325 1-30 tab, PO, l mg oral 16:18: Daily, 0 Cheko n enteric 00 Refill(s) coated tablet Esomeprazol Yes 20 mg = 1 M [...] l MG / 00:52: day, # 14 [place] Trimethopri 00 tab, 0 m 160 MG Refill(s) Oral Tablet [Bactrim] Sulfamethox 2015-03 Yes 1 tab, PO, Memoria azole 800 2-24 BID, X 7 l MG / 00:52: day, # 14 [place] Trimethopri 00 tab, 0 m 160 MG Refill(s) Oral Tablet [Bactrim] Sulfamethox 2015-03 Yes 1 tab, PO, Memoria azole 800 2-24 BID, X 7 l MG / 00:52: day, # 14 [place] Trimethopri 00 tab, 0 m 160 MG Refill(s) Oral Tablet [Bactrim] Sulfamethox 2015-03 Yes 1 tab, PO, Memoria azole 800 2-24 BID, X 7 l MG / 00:52: day, # 14 [place] Trimethopri 00 tab, 0 m 160 MG Refill(s) Oral Tablet [Bactrim] Motrin 2015-03 No 800 mg, Memoria 2-23 Route: PO, l 22:27: Drug form: [place] 00 TAB, ONCE, Dosing Weight 72.727, kg, Priority: STAT, Start date: 03/17/16 16:27:00 [employer] HEL[employer], Stop date: 03/17/16 16:27:00 [employer] HELPER Sodium 2015- No 1,000 mL, Memori a Chloride 2-23 2,000 l 0.154 22:27: ml/hr, Arthur MEQ/ML 00 Infuse Injectable Over: 30 Solution minutes, Route: IV, ONCE, Priority: STAT, Dosing Weight 72.727 kg, Start date: 03/17/16 16:27:00 [employer] HELPER, Duration: 1 doses or times, Stop date: 03/17/16 16:27:00 [employer] Saline 2015-03 No Notes: Memoria Flush 0.9% 2-23 (Same as: l 22:27: BD [place] 00 Posiflush) Motrin 2015-03 No 800 mg, Memoria 2-23 Route: PO, l 22:27: Drug form: Arthur 00 TAB, ONCE, Dosing Weight 72.727, kg, Priority: STAT, Start date: 03/17/16 16:27:00 [employer] HELPER, Stop date: 03/17/16 16:27:00 [employer] HELPER Sodium 2015-03 No 1,000 mL, Memori a Chloride 2-23 2,000 l 0.154 22:27: ml/hr, [place] MEQ/ML 00 Infuse Injectable Over: 30 Solution minutes, Route: IV, ONCE, Priority: STAT, Dosing Weight 72.727 kg, Start date: 03/17/16 16:27:00 [employer] HELPER, Duration: 1 doses or times, Stop date: 03/17/16 16:27:00 [employer] HELPER Saline 2015-03 No Notes: Memoria Flush 0.9% 2-23 (Same as: l 22:27: BD [place] 00 Posiflush) Motrin 2015-03 No 800 mg, Memoria 2-23 Route: PO, l 22:27: Drug form: Arthur 00 TAB, ONCE, Dosing Weight 72.727, kg, Priority: STAT, Start date: 03/17/16 16:27:00 [employer] HELPER, Stop date: 03/17/16 16:27:00 [employer] HELPER Sodium 2015- No 1,000 mL, Memori a Chloride 2-23 2,000 l 0.154 22:27: ml/hr, [place] MEQ/ML 00 Infuse Injectable Over: 30 Solution minutes, Route: IV, ONCE, Priority: STAT, Dosing Weight 72.727 kg, Start date: 03/17/16 16:27:00 [employer] HELPER, Duration: 1 doses or times, Stop date: 03/17/16 16:27:00 [employer] HELPER Saline 2015-03 No Notes: Memoria Flush 0.9% 2-23 (Same as: l 22:27: BD [place] Posiflush) Motrin 2015-03 No 800 mg, Memoria 2-23 Route: PO, l 22:27: Drug form: Arthur 00 TAB, ONCE, Dosing Weight 72.727, kg, Priority: STAT, Start date: 03/17/16 16:27:00 [employer] HELPER, Stop date: 03/17/16 16:27:00 [employer] HEL[employer] Sodium 2015-03 No 1,000 mL, Memori a Chloride 2-23 2,000 l 0.154 22:27: ml/hr, [place] MEQ/ML 00 Infuse Injectable Over: 30 Solution minutes, Route: IV, ONCE, Priority: STAT, Dosing Weight 72.727 kg, Start date: 03/17/16 16:27:00 [employer] HELPER, Duration: 1 doses or times, Stop date: 03/17/16 16:27:00 [employer] HELPER Saline 2015-03 No Notes: Memoria Flush 0.9% 2-23 (Same as: l 22:27: BD Arthur 00 Posiflush) Acetaminoph Yes 1 tab, PO, Memoria en 300 MG / 5-10 Q6H, PRN l Codeine 16:03: Pain, X 7 Elisa nn Phosphate 00 day, # 28 30 MG Oral tab, 0 Tablet Refill(s) [Tylenol with Codeine #3] Acetaminoph Yes 1 tab, PO, Memoria en 300 MG / 5-10 Q6H, PRN l Codeine 16:03: Pain, X 7 Elisa nn Phosphate 00 day, # 28 30 MG Oral tab, 0 Tablet Refill(s) [Tylenol with Codeine #3] Acetaminoph Yes 1 tab, PO, Memoria en 300 MG / 5-10 Q6H, PRN l Codeine 16:03: Pain, X 7 Elisa nn Phosphate 00 day, # 28 30 MG Oral tab, 0 Tablet Refill(s) [Tylenol with Codeine #3] Acetaminoph Yes 1 tab, PO, Memoria en [...] day, [Flexeril] # 30 tab, 0 Refill(s) Cyclobenzap Yes 10 mg = 1 M emoria rine 5-10 tab, PO, l hydrochlori 16:02: TID, PRN He rmann de 10 MG 00 for spasm, Oral Tablet X 10 day, [Flexeril] # 30 tab, 0 Refill(s) Cyclobenzap Yes 10 mg = 1 M emoria rine 5-10 tab, PO, l hydrochlori 16:02: TID, PRN He rmann de 10 MG 00 for spasm, Oral Tablet X 10 day, [Flexeril] # 30 tab, 0 Refill(s) Cyclobenzap Yes 10 mg = 1 M emoria rine 5-10 tab, PO, l hydrochlori 16:02: TID, PRN He rmann de 10 MG 00 for spasm, Oral Tablet X 10 day, [Flexeril] # 30 tab, 0 Refill(s) acetaminoph No Notes: Do M emoria en-codeine 5-10 not exceed l #3 15:03: 4gm/day of [place] acetaminop hen. (Same as: Tylenol with Codeine # 3) cyclobenzap No Notes: Yamil brandi rine 5-10 (Same As: l 15:03: Flexeril) acetaminoph No Notes: Do M emoria en-codeine 5-10 not exceed l #3 15:03: 4gm/day of Arthur acetaminop hen. (Same as: Tylenol with Codeine # 3) cyclobenzap No Notes: Yamil brandi rine 5-10 (Same As: l 15:03: Flexeril) [place] acetaminoph No Notes: Do M emoria en-codeine 5-10 not exceed l #3 15:03: 4gm/day of Arthur acetaminop hen. (Same as: Tylenol with Codeine # 3) cyclobenzap No Notes: Yamil brandi rine 5-10 (Same As: l 15:03: Flexeril) acetaminoph No Notes: Do M emoria en-codeine 5-10 not exceed l #3 15:03: 4gm/day of [place] acetaminop hen. (Same as: Tylenol with Codeine # 3) cyclobenzap No Notes: Yamil brandi rine 5-10 (Same As: l 15:03: Flexeril) Aspirin 81 Yes 81 mg = 1 Me moria MG Enteric 1-14 tab, PO, l Coated 22:58: Daily, # Arthur Tablet 00 90 tab, 3 Refill(s), other Aspirin 81 Yes 81 mg = 1 Me moria MG Enteric 1-14 tab, PO, l Coated 22:58: Daily, # [place] Tablet 00 90 tab, 3 Refill(s), other Aspirin 81 2016 Yes 81 mg = 1 Me moria MG Enteric 1-14 tab, PO, l Coated 22:58: Daily, # [place] Tablet 00 90 tab, 3 Refill(s), other Aspirin 81 2016 Yes 81 mg = 1 Me moria MG Enteric 1-14 tab, PO, l Coated 22:58: Daily, # [place] Tablet 00 90 tab, 3 Refill(s), other Aspirin 325 No Notes: (Do Memoria MG Enteric 1-14 Not Crush) l Coated 15:00: Do not Arthur Tablet 00 crush or chew. Aspirin 325 No Notes: (Do Memoria MG Enteric 1-14 Not Crush) l Coated 15:00: Do not [place] Tablet 00 crush or chew. Aspirin 325 No Notes: (Do Memoria MG Enteric 1-14 Not Crush) l Coated 15:00: Do not [place] Tablet 00 crush or chew. Aspirin 325 No Notes: (Do Memoria MG Enteric 1-14 Not Crush) l Coated 15:00: Do not [place] Tablet 00 crush or chew. Saline 0 No Notes: Memoria Flush 0.9% 1-14 (Same as: l 03:00: BD [place] 00 Posiflush) Saline No Notes: Memoria Flush 0.9% 1-14 (Same as: l 03:00: BD [place] 00 Posiflush) Saline No Notes: Memoria Flush 0.9% 1-14 (Same as: l 03:00: BD [place] 00 Posiflush) Saline 0 No Notes: Memoria Flush 0.9% 1-14 (Same as: l 03:00: BD [place] 00 Posiflush) Sodium 2016-0 No 1,000 mL, Memori a Chloride 1-14 Rate: 125 l 0.154 01:28: ml/hr, [place] MEQ/ML 00 Infuse Injectable over: 8 Solution hr, Route: IV, Dosing Weight 80.455 kg, Total Volume: 1,000, Start date: 04/07/15 19:28:00, Duration: 30 day, Stop date: 05/07/15 19:27:00 Sodium 2016-0 No 1,000 mL, Memori a Chloride 1-14 Rate: 125 l 0.154 01:28: ml/hr, [place] MEQ/ML 00 Infuse Injectable over: 8 Solution hr, Route: IV, Dosing Weight 80.455 kg, Total Volume: 1,000, Start date: 04/07/15 19:28:00, Duration: 30 day, Stop date: 05/07/15 19:27:00 Sodium 2016-0 No 1,000 mL, Memori a Chloride 1-14 Rate: 125 l 0.154 01:28: ml/hr, [place] MEQ/ML 00 Infuse Injectable over: 8 Solution hr, Route: IV, Dosing Weight 80.455 kg, Total Volume: 1,000, Start date: 04/07/15 19:28:00, Duration: 30 day, Stop date: 05/07/15 19:27:00 Sodium 2016-0 No 1,000 mL, Memori a Chloride 1-14 Rate: 125 l 0.154 01:28: ml/hr, Arthur MEQ/ML 00 Infuse Injectable over: 8 Solution hr, Route: IV, Dosing Weight 80.455 kg, Total Volume: 1,000, Start date: 04/07/15 19:28:00, Duration: 30 day, Stop date: 05/07/15 19:27:00 metoprolol No Notes: Memor ia tartrate 1-14 (Same as: l 00:00: Lopressor) metoprolol No Notes: Memor ia tartrate 1-14 (Same as: l 00:00: Lopressor) metoprolol No Notes: Memor ia tartrate 1-14 (Same as: l 00:00: Lopressor) metoprolol No Notes: Memor ia tartrate 1-14 (Same as: l 00:00: Lopressor) Saline No Notes: Memoria Flush 0.9% 04-07 (Same as: l 20:15: BD [place] 00 Posiflush) Nitroglycer No Notes: Yamil brandi in 04-07 (Same l 20:15: as:Nitroqu [place] 00 ick, Nitrostat) "Do Not Crush" Sublingual tablet Saline No Notes: Memoria Flush 0.9% 04-07 (Same as: l 20:15: BD [place] 00 Posiflush) Nitroglycer No Notes: Yamil brandi in 04-07 (Same l 20:15: as:Nitroqu [place] 00 ick, Nitrostat) "Do Not Crush" Sublingual tablet Saline No Notes: Memoria Flush 0.9% 04-07 (Same as: l 20:15: BD [place] 00 Posiflush) Nitroglycer No Notes: Yamil brandi in 04-07 (Same l 20:15: as:Nitroqu [place] 00 ick, Nitrostat) "Do Not Crush" Sublingual tablet Saline No Notes: Memoria Flush 0.9% 04-07 (Same as: l 20:15: BD [place] 00 Posiflush) Nitroglycer No Notes: Yamil brandi in 04-07 (Same l 20:15: as:Nitroqu [place] 00 ick, Nitrostat) "Do Not Crush" Sublingual tablet Sodium 2016-0 No 1,000 mL, Memori a Chloride 1-13 1,000 l 0.154 15:37: ml/hr, [place] MEQ/ML 00 Infuse Injectable Over: 1 Solution hr, Route: IV, ONCE, Priority: STAT, Dosing Weight 80.455 kg, Start date: 04/07/15 9:37:00, Duration: 1 doses or times, Stop date: 04/07/15 9:37:00 Sodium 2016-0 No 1,000 mL, Memori a Chloride 1-13 1,000 l 0.154 15:37: ml/hr, [place] MEQ/ML 00 Infuse Injectable Over: 1 Solution hr, Route: IV, ONCE, Priority: STAT, Dosing Weight 80.455 kg, Start date: 04/07/15 9:37:00, Duration: 1 doses or times, Stop date: 04/07/15 9:37:00 Sodium 2016-0 No 1,000 mL, Memori a Chloride 1-13 1,000 l 0.154 15:37: ml/hr, [place] MEQ/ML 00 Infuse Injectable Over: 1 Solution hr, Route: IV, ONCE, Priority: STAT, Dosing Weight 80.455 kg, Start date: 04/07/15 9:37:00, Duration: 1 doses or times, Stop date: 04/07/15 9:37:00 Sodium 2016-0 No 1,000 mL, Memori a Chloride 1-13 1,000 l 0.154 15:37: ml/hr, [place] MEQ/ML 00 Infuse Injectable Over: 1 Solution hr, Route: IV, ONCE, Priority: STAT, Dosing Weight 80.455 kg, Start date: 04/07/15 9:37:00, Duration: 1 doses or times, Stop date: 04/07/15 9:37:00 Nitroglycer No Notes: Yamil brandi in 0.4 MG 1-13 (Same l Sublingual 13:25: as:Nitroqu H ermann Tablet 00 ick, Nitrostat) "Do Not Crush" Sublingual tablet Nitroglycer No Notes: Yamil brandi in 0.4 MG 1-13 (Same l Sublingual 13:25: as:Nitroqu H ermann Tablet 00 ick, Nitrostat) "Do Not Crush" Sublingual tablet Nitroglycer No Notes: Yamil brandi in 0.4 MG 1-13 (Same l Sublingual 13:25: as:Nitroqu H ermann Tablet 00 ick, Nitrostat) "Do Not Crush" Sublingual tablet Nitroglycer No Notes: Yamil brandi in 0.4 MG 1-13 (Same l Sublingual 13:25: as:Nitroqu H ermann Tablet 00 ick, Nitrostat) "Do Not Crush" Sublingual tablet Aspirin No Notes: Memoria 1-13 Take with l 13:23: food. Arthur 00 Saline No Notes: Memoria Flush 0.9% 1-13 (Same as: l 13:23: BD [place] 00 Posiflush) Aspirin No Notes: Memoria 1-13 Take with l 13:23: food. [place] 00 Saline No Notes: Memoria Flush 0.9% 1-13 (Same as: l 13:23: BD [place] 00 Posiflush) Aspirin No Notes: Memoria 1-13 Take with l 13:23: food. Arthur 00 Saline No Notes: Memoria Flush 0.9% 1-13 (Same as: l 13:23: BD [place] 00 Posiflush) Aspirin No Notes: Memoria 1-13 Take with l 13:23: food. Arthur 00 Saline No Notes: Memoria Flush 0.9% 1-13 (Same as: l 13:23: BD [place] 00 Posiflush) Miralax No Notes: Memoria 8-14 Dissolve l 23:38: in 8 oz of [place] 00 water or juice. (Same as: Miralax) Miralax No Notes: Memoria 8-14 Dissolve l 23:38: in 8 oz of [place] 00 water or juice. (Same as: Miralax) Miralax No Notes: Memoria 8-14 Dissolve l 23:38: in 8 oz of [place] 00 water or juice. (Same as: Miralax) Miralax No Notes: Memoria 8-14 Dissolve l 23:38: in 8 oz of [place] 00 water or juice. (Same as: Miralax) Tylenol No Notes: Do Memor ia 8-14 not exceed l 23:35: 4 gm/day. (Same as: Tylenol) Tylenol No Notes: Do Memor ia 8-14 not exceed l 23:35: 4 gm/day. (Same as: Tylenol) Tylenol No Notes: Do Memor ia 8-14 not exceed l 23:35: 4 gm/day. (Same as: Tylenol) Tylenol No Notes: Do Memor ia 8-14 not exceed l 23:35: 4 gm/day. (Same as: Tylenol) Sulfamethox Yes 1 tab, PO, Memoria azole 800 8-14 BID, X 5 l MG / 15:31: day, # 10 [place] Trimethopri 00 tab, 0 m 160 MG Refill(s) Oral Tablet [Bactrim] Sulfamethox Yes 1 tab, PO, Memoria azole 800 8-14 BID, X 5 l MG / 15:31: day, # 10 [place] Trimethopri 00 tab, 0 m 160 MG Refill(s) Oral Tablet [Bactrim] Sulfamethox Yes 1 tab, PO, Memoria azole 800 8-14 BID, X 5 l MG / 15:31: day, # 10 [place] Trimethopri 00 tab, 0 m 160 MG Refill(s) Oral Tablet [Bactrim] Sulfamethox Yes 1 tab, PO, Memoria azole 800 8-14 BID, X 5 l MG / 15:31: day, # 10 [place] Trimethopri 00 tab, 0 m 160 MG Refill(s) Oral Tablet [Bactrim] ferrous Yes 325 mg, Memoria sulfate 325 8-14 PO, TID, # l MG Oral 14:52: 90 tab, 1 Elisa nn Tablet 00 Refill(s) ferrous Yes 325 mg, Memoria sulfate 325 8-14 PO, TID, # l MG Oral 14:52: 90 tab, 1 Elisa nn Tablet 00 Refill(s) ferrous Yes 325 mg, Memoria sulfate 325 8-14 PO, TID, # l MG Oral 14:52: 90 tab, 1 Elisa nn Tablet 00 Refill(s) ferrous Yes 325 mg, Memoria sulfate 325 8-14 PO, TID, # l MG Oral 14:52: 90 tab, 1 [place]isa nn Tablet 00 Refill(s) ferrous No Notes: Memoria sulfate 8-14 Give with l 14:50: food. "Do [place] 00 Not Crush" ferrous No Notes: Memoria sulfate 8-14 Give with l 14:50: food. "Do [place] 00 Not Crush" ferrous No Notes: Memoria sulfate 8-14 Give with l 14:50: food. "Do [place] 00 Not Crush" ferrous No Notes: Memoria sulfate 8-14 Give with l 14:50: food. "Do [place] 00 Not Crush" nitroglycer No Notes: Yamil barndi in 0.4 mg 8-14 (Same l sublingual 01:34: as:Nitroqu H ermann tablet 00 ick, Nitrostat) "Do Not Crush" Sublingual tablet atropine No 0.5 mg, 5 Yamil brandi 8-14 mL, Route: l 01:34: IVP, Drug [place] 00 form: INJ, PRN, PRN Bradycardi a, Start date: 11/05/14 20:34:00, Duration: 30 day, Stop date: 12/05/14 20:33:00 nitroglycer No Notes: Yamil brandi in 0.4 mg 8-14 (Same l sublingual 01:34: as:Nitroqu H ermann tablet 00 ick, Nitrostat) "Do Not Crush" Sublingual tablet atropine No 0.5 mg, 5 Yamil brandi 8-14 mL, Route: l 01:34: IVP, Drug [place] 00 form: INJ, PRN, PRN Bradycardi a, Start date: 11/05/14 20:34:00, Duration: 30 day, Stop date: 12/05/14 20:33:00 nitroglycer No Notes: Yamil brandi in 0.4 mg 8-14 (Same l sublingual 01:34: as:Nitroqu H ermann tablet 00 ick, Nitrostat) "Do Not Crush" Sublingual tablet atropine No 0.5 mg, 5 Yamil brandi 8-14 mL, Route: l 01:34: IVP, Drug Arthur form: INJ, PRN, PRN Bradycardi a, Start date: 11/05/14 20:34:00, Duration: 30 day, Stop date: 12/05/14 20:33:00 nitroglycer No Notes: Yamil brandi in 0.4 mg 8-14 (Same l sublingual 01:34: as:Nitroqu H ermann tablet 00 ick, Nitrostat) "Do Not Crush" Sublingual tablet atropine No 0.5 mg, 5 Yamil brandi 8-14 mL, Route: l 01:34: IVP, Drug Arthur form: INJ, PRN, PRN Bradycardi a, Start date: 11/05/14 20:34:00, Duration: 30 day, Stop date: 12/05/14 20:33:00 Saline No Notes: Memoria Flush 0.9% 8-14 Same as: l 01:11: BD [place] Posiflush Sterile Saline No Notes: Memoria Flush 0.9% 8-14 Same as: l 01:11: BD [place] 00 Posiflush Sterile Saline No Notes: Memoria Flush 0.9% 8-14 Same as: l 01:11: BD [place] Posiflush Sterile Saline No Notes: Memoria Flush 0.9% 8-14 Same as: l 01:11: BD [place] Posiflush Sterile Sulfamethox No Notes: One Memoria azole 800 8-13 DS tablet l MG / 22:00: = [place] Trimethopri 00 trimethopr m 160 MG im 160mg + Oral Tablet sulfametho [Bactrim] xazole 800 mg Dose based on trimethopr im component On empty stomach with a glass of water. 1 hr before meals (Same As: Bactrim DS, Septra DS) Sulfamethox No Notes: One Memoria azole 800 8-13 DS tablet l MG / 22:00: = [place] Trimethopri 00 trimethopr m 160 MG im 160mg + Oral Tablet sulfametho [Bactrim] xazole 800 mg Dose based on trimethopr im component On empty stomach with a glass of water. 1 hr before meals (Same As: Bactrim DS, Septra DS) Sulfamethox 2015-0 No Notes: One Memoria azole 800 8-13 DS tablet l MG / 22:00: = [place] Trimethopri 00 trimethopr m 160 MG im 160mg + Oral Tablet sulfametho [Bactrim] xazole 800 mg Dose based on trimethopr im component On empty stomach with a glass of water. 1 hr before meals (Same As: Bactrim DS, Septra DS) Sulfamethox 2015-0 No Notes: One Memoria azole 800 8-13 DS tablet l MG / 22:00: = [place] Trimethopri 00 trimethopr m 160 MG im 160mg + Oral Tablet sulfametho [Bactrim] xazole 800 mg Dose based on trimethopr im component On empty stomach with a glass of water. 1 hr before meals (Same As: Bactrim DS, Septra DS) Ceftriaxone 2015-0 No 1 gm, Memor ia 8-13 Route: l 20:52: IVPB, Drug [place] 00 form: PDR/INJ, ONCE, Dosing Weight 71.364, kg, Priority: STAT, Start date: 11/05/14 15:52:00, Stop date: 11/05/14 15:52:00 Ceftriaxone 2015-0 No 1 gm, Memor ia 8- Route: l 20:52: IVPB, Drug [place] 00 form: PDR/INJ, ONCE, Dosing Weight 71.364, kg, Priority: STAT, Start date: 11/05/14 15:52:00, Stop date: 11/05/14 15:52:00 Ceftriaxone 2015-0 No 1 gm, Memor ia 8- Route: l 20:52: IVPB, Drug [place] 00 form: PDR/INJ, ONCE, Dosing Weight 71.364, kg, Priority: STAT, Start date: 11/05/14 15:52:00, Stop date: 11/05/14 15:52:00 Ceftriaxone 2015-0 No 1 gm, Memor ia 8-13 Route: l 20:52: IVPB, Drug [place] 00 form: PDR/INJ, ONCE, Dosing Weight 71.364, kg, Priority: STAT, Start date: 11/05/14 15:52:00, Stop date: 11/05/14 15:52:00 Ketorolac 2015-0 No 30 mg, Memori a 8-13 Route: l 20:39: IVP, Drug [place] 00 form: INJ, ONCE, Dosing Weight 71.364, kg, Priority: STAT, Start date: 11/05/14 15:39:00, Stop date: 11/05/14 15:39:00 Ketorolac 2015-0 No 30 mg, Memori a 8- Route: l 20:39: IVP, Drug [place] 00 form: INJ, ONCE, Dosing Weight 71.364, kg, Priority: STAT, Start date: 11/05/14 15:39:00, Stop date: 11/05/14 15:39:00 Ketorolac 2015-0 No 30 mg, Memori a 8- Route: l 20:39: IVP, Drug [place] 00 form: INJ, ONCE, Dosing Weight 71.364, kg, Priority: STAT, Start date: 11/05/14 15:39:00, Stop date: 11/05/14 15:39:00 Ketorolac 2015-0 No 30 mg, Memori a 8- Route: l 20:39: IVP, Drug [place] 00 form: INJ, ONCE, Dosing Weight 71.364, kg, Priority: STAT, Start date: 11/05/14 15:39:00, Stop date: 11/05/14 15:39:00 Morphine 2015-0 No 2 mg, Memoria 8- Route: l 20:20: IVP, Drug Arthur 00 form: INJ, ONCE, Dosing Weight 71.364, kg, Priority: STAT, Start date: 11/05/14 15:20:00, Stop date: 11/05/14 15:20:00 Morphine 2015-0 No 2 mg, Memoria 8- Route: l 20:20: IVP, Drug Arthur 00 form: INJ, ONCE, Dosing Weight 71.364, kg, Priority: STAT, Start date: 11/05/14 15:20:00, Stop date: 11/05/14 15:20:00 Morphine 2015-0 No 2 mg, Memoria 8- Route: l 20:20: IVP, Drug [place] 00 form: INJ, ONCE, Dosing Weight 71.364, kg, Priority: STAT, Start date: 11/05/14 15:20:00, Stop date: 11/05/14 15:20:00 Morphine 2014-0 No 2 mg, Memoria 8-13 Route: l 20:20: IVP, Drug form: INJ, ONCE, Dosing Weight 71.364, kg, Priority: STAT, Start date: 11/05/14 15:20:00, Stop date: 11/05/14 15:20:00 Aspirin 2014-0 No 324 mg, Memoria 8 Route: PO, l 19:58: ONCE, Dosing Weight 71.364, kg, Priority: STAT, Start date: 11/05/14 14:58:00, Stop date: 11/05/14 14:58:00 Saline No Notes: Memoria Flush 0.9% 11-05 Same as: l 19:58: BD Posiflush Sterile Aspirin 0 No 324 mg, Memoria 8 Route: PO, l 19:58: ONCE, Dosing Weight 71.364, kg, Priority: STAT, Start date: 11/05/14 14:58:00, Stop date: 11/05/14 14:58:00 Saline No Notes: Memoria Flush 0.9% 11-05 Same as: l 19:58: BD Posiflush Sterile Aspirin 0 No 324 mg, Memoria 8 Route: PO, l 19:58: ONCE, Dosing Weight 71.364, kg, Priority: STAT, Start date: 11/05/14 14:58:00, Stop date: 11/05/14 14:58:00 Saline No Notes: Memoria Flush 0.9% 11-05 Same as: l 19:58: BD Posiflush Sterile Aspirin 0 No 324 mg, Memoria 8-13 Route: PO, l 19:58: ONCE, Dosing Weight 71.364, kg, Priority: STAT, Start date: 11/05/14 14:58:00, Stop date: 11/05/14 14:58:00 Saline 0 No Notes: Memoria Flush 0.9% 11-05 Same as: l 19:58: BD Posiflush Sterile ferrous 2014-0 Yes 325 mg = 1 Yamil brandi sulfate 325 8-11 tab, PO, l mg oral 18:24: Daily, # Cheko n enteric 00 30 tab, 0 coated Refill(s) tablet Acetaminoph No 1 - 2 tab, Memoria en 300 MG / 8-11 PO, Q6H, l Codeine 18:24: PRN Pain, Elisa nn Phosphate 00 X 2 day, # 30 MG Oral 20 tab, 0 Tablet Refill(s) [Tylenol with Codeine #3] ferrous Yes 325 mg = 1 Yamil brandi sulfate 325 8-11 tab, PO, l mg oral 18:24: Daily, # Cheko n enteric 00 30 tab, 0 coated Refill(s) tablet Acetaminoph No 1 - 2 tab, Memoria en 300 MG / 8-11 PO, Q6H, l Codeine 18:24: PRN Pain, Elisa nn Phosphate 00 X 2 day, # 30 MG Oral 20 tab, 0 Tablet Refill(s) [Tylenol with Codeine #3] ferrous Yes 325 mg = 1 Yamil brandi sulfate 325 8-11 tab, PO, l mg oral 18:24: Daily, # Cheko n enteric 00 30 tab, 0 coated Refill(s) tablet Acetaminoph No 1 - 2 tab, Memoria en 300 MG / 8-11 PO, Q6H, l Codeine 18:24: PRN Pain, Elisa nn Phosphate 00 X 2 day, # 30 MG Oral 20 tab, 0 Tablet Refill(s) [Tylenol with Codeine #3] ferrous Yes 325 mg = 1 Yamil brandi sulfate 325 8-11 tab, PO, l mg oral 18:24: Daily, # Cheko n enteric 00 30 tab, 0 coated Refill(s) tablet Acetaminoph No 1 - 2 tab, Memoria en 300 MG / 8-11 PO, Q6H, l Codeine 18:24: PRN Pain, Elisa nn Phosphate 00 X 2 day, # 30 MG Oral 20 tab, 0 Tablet Refill(s) [Tylenol with Codeine #3] Acetaminoph No 1 tab, Yamil brandi en 300 MG / 8-11 Route: PO, l Codeine 15:14: Drug Form: Herm stevie Phosphate 00 TAB, 30 MG Oral Dosing Tablet Weight 77, [Tylenol kg, ONCE, with STAT, Codeine #3] Start date: 11/03/14 10:14:00, Stop date: 11/03/14 10:14:00 Acetaminoph No 1 tab, Yamil brandi en 300 MG / 11-03 Route: PO, l Codeine 15:14: Drug Form: Herm stevie Phosphate 00 TAB, 30 MG Oral Dosing Tablet Weight 77, [Tylenol kg, ONCE, with STAT, Codeine #3] Start date: 11/03/14 10:14:00, Stop date: 11/03/14 10:14:00 Acetaminoph No 1 tab, Yamil brandi en 300 MG / 11-03 Route: PO, l Codeine 15:14: Drug Form: Herm stevie Phosphate 00 TAB, 30 MG Oral Dosing Tablet Weight 77, [Tylenol kg, ONCE, with STAT, Codeine #3] Start date: 11/03/14 10:14:00, Stop date: 11/03/14 10:14:00 Acetaminoph No 1 tab, Yamil brandi en 300 MG / 11-03 Route: PO, l Codeine 15:14: Drug Form: Herm stevie Phosphate 00 TAB, 30 MG Oral Dosing Tablet Weight 77, [Tylenol kg, ONCE, with STAT, Codeine #3] Start date: 11/03/14 10:14:00, Stop date: 11/03/14 10:14:00 GI cocktail No Notes: Yamil brandi 8-11 G.I. l 13:51: Cocktail = [place] 00 antacid with simethicon e 22.5 mL - lidocaine viscous 7.5 mL Morphine No Notes: Memoria 8-11 (Same l 13:51: as:MORPhin Arthur 00 e Sulfate) GI cocktail No Notes: Yamil brandi 8-11 G.I. l 13:51: Cocktail = [place] 00 antacid with simethicon e 22.5 mL - lidocaine viscous 7.5 mL Morphine No Notes: Memoria 8-11 (Same l 13:51: as:MORPhin [place] 00 e Sulfate) GI cocktail No Notes: Yamil brandi 8-11 G.I. l 13:51: Cocktail = [place] 00 antacid with simethicon e 22.5 mL - lidocaine viscous 7.5 mL Morphine No Notes: Memoria 8-11 (Same l 13:51: as:MORPhin [place] 00 e Sulfate) GI cocktail No Notes: Yamil brandi 8-11 G.I. l 13:51: Cocktail = Arthur 00 antacid with simethicon e 22.5 mL - lidocaine viscous 7.5 mL Morphine No Notes: Memoria 8-11 (Same l 13:51: as:MORPhin [place] 00 e Sulfate) Aspirin No Notes: Memoria 8-11 Take with l 13:50: food. Arthur 00 Saline No Notes: Memoria Flush 0.9% 8-11 (Same as: l 13:50: BD Arthur 00 Posiflush) Aspirin No Notes: Memoria 8-11 Take with l 13:50: food. [place] 00 Saline No Notes: Memoria Flush 0.9% 8-11 (Same as: l 13:50: BD [place] 00 Posiflush) Aspirin No Notes: Memoria 8-11 Take with l 13:50: food. [place] 00 Saline No Notes: Memoria Flush 0.9% 8-11 (Same as: l 13:50: BD Arthur 00 Posiflush) Aspirin No Notes: Memoria 8-11 Take with l 13:50: food. Arthur 00 Saline No Notes: Memoria Flush 0.9% 8-11 (Same as: l 13:50: BD [place] 00 Posiflush) ibuprofen 2012-03 Yes Spencer 600 mg = 1 Me moria 600 mg oral 2-14 Fayrweathe tab, PO, l tablet 00:41: r Q6H, as [place] 00 needed for fever, take with food, # 30 tab, 0 Refill(s)t emily with food ibuprofen 2012-03 Yes Spencer 600 mg = 1 Me moria 600 mg oral 2-14 Fayrweathe tab, PO, l tablet 00:41: r Q6H, as [place] 00 needed for fever, take with food, # 30 tab, 0 Refill(s)t emily with food ibuprofen 2012-03 Yes Spencer 600 mg = 1 Me moria 600 mg oral 2-14 Fayrweathe tab, PO, l tablet 00:41: r Q6H, as [place] 00 needed for fever, take with food, # 30 tab, 0 Refill(s)t emily with food ibuprofen 2012-03 Yes Spencer 600 mg = 1 Me moria 600 mg oral 2-14 Fayrweathe tab, PO, l tablet 00:41: r Q6H, as Arthur 00 needed for fever, take with food, # 30 tab, 0 Refill(s)t emily with food on 2012-03 Yes Spencer 100 mg = 1 Mem oria Perles 100 2-14 Fayrweathe cap, PO, l mg oral 00:40: r TID, # 21 Elisa nn capsule 00 cap, 0 Refill(s) ondansetron 2012-03 Yes Spencer 4 mg = 1 Me moria 4 mg oral 2-14 Fayrweathe tab, PO, l tablet, 00:40: r TID, [place] disintegrat 00 Nausea / ing Vomiting, Dissolve tab under tongue, # 10 tab, 0 Refill(s)D issolve tab under tongue salon 2012-03 Yes Spencer 100 mg = 1 Mem oria Perles 100 2-14 Fayrweathe cap, PO, l mg oral 00:40: r TID, # 21 Elisa nn capsule 00 cap, 0 Refill(s) ondansetron 2012-03 Yes Spencer 4 mg = 1 Me moria 4 mg oral 2-14 Fayrweathe tab, PO, l tablet, 00:40: r TID, [place] disintegrat 00 Nausea / ing Vomiting, Dissolve tab under tongue, # 10 tab, 0 Refill(s)D issolve tab under tongue salon 2012-03 Yes Spencer 100 mg = 1 Mem oria Perles 100 2-14 Fayrweathe cap, PO, l mg oral 00:40: r TID, # 21 Elisa nn capsule 00 cap, 0 Refill(s) ondansetron 2012-03 Yes Spencer 4 mg = 1 Me moria 4 mg oral 2-14 Fayrweathe tab, PO, l tablet, 00:40: r TID, Arthur disintegrat 00 Nausea / ing Vomiting, Dissolve tab under tongue, # 10 tab, 0 Refill(s)D issolve tab under tongue Tessalon 2012-03 Yes Spencer 100 mg = 1 Mem oria Perles 100 2-14 Fayrweathe cap, PO, l mg oral 00:40: r TID, # 21 Elisa nn capsule 00 cap, 0 Refill(s) ondansetron 2012-03 Yes Spencer 4 mg = 1 Me moria 4 mg oral 2-14 Fayrweathe tab, PO, l tablet, 00:40: r TID, [place] disintegrat 00 Nausea / ing Vomiting, Dissolve [...] Motrin) "Do Not Crush" Take with food. ibuprofen 2012-03 No Spencer 600 mg, 1 Mem oria 2-14 Fayrweathe tab, l 00:19: r Route: PO, Arthur 00 Drug form: TAB, ONCE, Dosing Weight 72.727, kg, Priority: STAT, Start date: 03/07/13 18:19:00, Stop date: 03/07/13 18:19:00(S mirta as: Motrin) "Do Not Crush" Take with food. ibuprofen 2012-03 No Spencer 600 mg, 1 Mem oria 2-14 Fayrweathe tab, l 00:19: r Route: PO, Arthur 00 Drug form: TAB, ONCE, Dosing Weight 72.727, kg, Priority: STAT, Start date: 03/07/13 18:19:00, Stop date: 03/07/13 18:19:00(S mirta as: Motrin) "Do Not Crush" Take with food. ibuprofen 2012-03 No Spencer 600 mg, 1 Mem oria 2-14 Fayrweathe tab, l 00:19: r Route: PO, Arthur 00 Drug form: TAB, ONCE, Dosing Weight 72.727, kg, Priority: STAT, Start date: 03/07/13 18:19:00, Stop date: 03/07/13 18:19:00(S mirta as: Motrin) "Do Not Crush" Take with food. Tylenol 2012-03 No Spencer 975 mg, 3 Memor ia 2-13 Fayrweathe tab, l 23:29: r Route: PO, [place] 00 Drug form: TAB, ONCE, Dosing Weight 72.727, kg, Priority: STAT, Start date: 03/07/13 17:29:00, Stop date: 03/07/13 17:29:00Do not exceed 4 gm/day. (Same as: Tylenol) Tylenol 2012-03 No Spencer 975 mg, 3 Memor ia 2-13 Fayrweathe tab, l 23:29: r Route: PO, [place] 00 Drug form: TAB, ONCE, Dosing Weight 72.727, kg, Priority: STAT, Start date: 03/07/13 17:29:00, Stop date: 03/07/13 17:29:00Do not exceed 4 gm/day. (Same as: Tylenol) Tylenol 2012-03 No Spencer 975 mg, 3 Memor ia 2-13 Fayrweathe tab, l 23:29: r Route: PO, [place] 00 Drug form: TAB, ONCE, Dosing Weight 72.727, kg, Priority: STAT, Start date: 03/07/13 17:29:00, Stop date: 03/07/13 17:29:00Do not exceed 4 gm/day. (Same as: Tylenol) Tylenol 2012-03 No Spencer 975 mg, 3 Memor ia 2-13 Fayrweathe tab, l 23:29: r Route: PO, [place] 00 Drug form: TAB, ONCE, Dosing Weight [...] date: 03/07/13 15:40:00(S mirta as: Zofran ODT) ondansetron 2012-03 No Spencer 4 mg, 1 Mem oria 4 mg oral 2-13 Fayrweathe tab, l tablet, 21:40: r Route: PO, Herm stevie disintegrat 00 Drug form: ing TABDIS, ONCE, Dosing Weight 72.727, kg, Priority: STAT, Start date: 03/07/13 15:40:00, Stop date: 03/07/13 15:40:00(S mirta as: Zofran ODT) ondansetron 2012-03 No Spencer 4 mg, 1 Mem oria 4 mg oral 2-13 Fayrweathe tab, l tablet, 21:40: r Route: PO, Herm stevie disintegrat 00 Drug form: ing TABDIS, ONCE, Dosing Weight 72.727, kg, Priority: STAT, Start date: 03/07/13 15:40:00, Stop date: 03/07/13 15:40:00(S mirta as: Zofran ODT) ondansetron 2012-03 No Spencer 4 mg, 1 [...] - 5, # 1 Pack, 0 Refill(s)T EMILY 2 TABLETS ON DAY 1; TAKE 1 TABLET ON DAYS 2 - 5 Naprosyn 2012-03 Yes Carol A 500 mg = 1 Memoria 500 mg oral 2-13 Poffin[place]arg tab, PO, l tablet 17:57: er BID, for [place] 00 pain, # 20 tab, 0 Refill(s) Zofran ODT 2012-03 Yes Carol A 4 mg = 1 Memoria 4 mg oral 2-13 [place] tab, PO, l tablet, 17:57: er BID, Arthur disintegrat 00 Nausea and ing Vomiting, Dissolve tab under tongue, # 10 tab, 0 Refill(s)D issolve tab under tongue Zithromax 2012-03 Yes Carol A 250 mg = 1 Memoria Z-Onel 250 2-13 [place] tab, PO, l mg oral 17:57: er Daily, Arthur tablet 00 TAKE 2 TABLETS ON DAY 1; TAKE 1 TABLET ON DAYS 2 - 5, # 1 Pack, 0 Refill(s)T EMILY 2 TABLETS ON DAY 1; TAKE 1 TABLET ON DAYS 2 - 5 rosyn 2012-03 Yes Carol A 500 mg = 1 Memoria 500 mg oral 2-13 [place] tab, PO, l tablet 17:57: er BID, for Arthur 00 pain, # 20 tab, 0 Refill(s) Zofran ODT 2012-03 Yes Carol A 4 mg = 1 Memoria 4 mg oral 2-13 [place] tab, PO, l tablet, 17:57: er BID, Arthur disintegrat 00 Nausea and ing Vomiting, Dissolve tab under tongue, # 10 tab, 0 Refill(s)D issolve tab under tongue Zithromax 2012-03 Yes Carol A 250 mg = 1 Memoria Z-Onel 250 2-13 [place] tab, PO, l mg oral 17:57: er Daily, Arthur tablet 00 TAKE 2 TABLETS ON DAY 1; TAKE 1 TABLET ON DAYS 2 - 5, # 1 Pack, 0 Refill(s)T EMILY 2 TABLETS ON DAY 1; TAKE 1 [...] tab, PO, l tablet, 17:57: er BID, Arthur disintegrat 00 Nausea and ing Vomiting, Dissolve tab under tongue, # 10 tab, 0 Refill(s)D issolve tab under tongue Zithromax 2012-03 Yes Carol A 250 mg = 1 Memoria Z-Onel 250 2-13 [place] tab, PO, l mg oral 17:57: er Daily, [place] tablet 00 TAKE 2 TABLETS ON DAY 1; TAKE 1 TABLET ON DAYS 2 - 5, # 1 Pack, 0 Refill(s)T EMILY 2 TABLETS ON DAY 1; TAKE 1 TABLET ON DAYS 2 - 5 Naprosyn 2012-03 Yes Carol A 500 mg = 1 Memoria 500 mg oral 2-13 [place] tab, PO, l tablet 17:57: er BID, for [place] 00 pain, # 20 tab, 0 Refill(s) Zofran ODT 2012-03 Yes Carol A 4 mg = 1 Memoria 4 mg oral 2-13 [place] tab, PO, l tablet, 17:57: er BID, [place] disintegrat 00 Nausea and ing Vomiting, Dissolve tab under tongue, # 10 tab, 0 Refill(s)D issolve tab under tongue Tessalon 2012-03 Yes Carol A 200 mg = 1 Memoria 200 mg oral 2-13 [place] cap, PO, l capsule 17:56: er TID, # 21 Elisa nn 00 cap, 0 Refill(s) Tessalon 2012-03 Yes Carol A 200 mg = 1 Memoria 200 mg oral 2-13 [place] cap, PO, l capsule 17:56: er TID, # 21 Elisa nn 00 cap, 0 Refill(s) Tessalon 2012-03 Yes Carol A 200 mg = 1 Memoria 200 mg oral 2-13 [place] cap, PO, l capsule 17:56: er TID, # 21 Elisa nn 00 cap, 0 Refill(s) Tessalon 2012-03 Yes Carol A 200 mg = 1 Memoria 200 mg oral 2-13 [place] cap, PO, l capsule 17:56: er TID, # 21 Elisa nn 00 cap, 0 Refill(s) morphine 2012-03 No Carol A 4 mg, 1 M emoria Sulfate 2-13 [place] mL, Route: l 15:37: er IVP, Drug Arthur 00 form: INJ, ONCE, Dosing Weight 72.727, kg, Priority: STAT, Start date: 03/07/13 9:37:00, Stop date: 03/07/13 9:37:00(Sa me as:MORPhin e Sulfate) Zofran 2012-03 No Carol A 4 mg, 2 Mem oria 2-13 [place] mL, Route: l 15:37: er IVP, Drug Arthur 00 form: INJ, ONCE, Dosing Weight 72.727, kg, Priority: STAT, Start date: 03/07/13 9:37:00, Stop date: 03/07/13 9:37:00([facility] as: Zofran) acetaminoph 2012-03 No Carol A 650 mg, 2 Memoria en 2-13 [place] tab, l 15:37: er Route: PO, [place] 00 Drug form: TAB, ONCE, Dosing Weight [...] Start date: 03/07/13 9:37:00, Stop date: 03/07/13 9:37:00( me As: Rocephin). Use with 100ml NS mini-bag PLUS and infuse over 30 min Sodium 2012-03 No Carol A 1,000 mL, M emoria Chloride 2-13 [place] Rate: l 0.9% 15:37: er 1,000 [place] (Bolus) IV 00 ml/hr, 1,000 mL Infuse over: 1 hr, Route: IV, Dosing Weight 72.727 kg, Total Volume: 1,000, Priority: STAT, Start date: 03/07/13 9:37:00, Duration: 1 doses or times, Stop date: 03/07/13 10:36:00 Saline 2012-03 No Carol A 5 mL, Memor ia Flush 0.9% 2-13 [place] Route: l 15:37: er IVP, Drug Arthur 00 Form: INJ, Dosing Weight 72.727, kg, PRN, PRN Line Flush, Start date: 03/07/13 9:37:00, Duration: 30 day, Stop date: 04/06/13 9:36:00(Sa me as: BD Posiflush) morphine 2012-03 No Carol A 4 mg, 1 M emoria Sulfate 2-13 [place] mL, Route: l 15:37: er IVP, Drug Arthur 00 form: INJ, ONCE, Dosing Weight 72.727, kg, Priority: STAT, Start date: 03/07/13 9:37:00, Stop date: 03/07/13 9:37:00(Sa me as:MORPhin e Sulfate) Zofran 2012-03 No Carol A 4 mg, 2 Mem oria 2-13 [place] mL, Route: l 15:37: er IVP, Drug [place] 00 form: INJ, ONCE, Dosing Weight 72.727, kg, Priority: STAT, Start date: 03/07/13 9:37:00, Stop date: 03/07/13 9:37:00( me as: Zofran) acetaminoph 2012-03 No Carol A 650 mg, 2 Memoria en 2-13 [place] tab, l 15:37: er Route: PO, Arthur 00 Drug form: TAB, [...] 03/07/13 9:37:00, Stop date: 03/07/13 9:37:00(Sa me As: Rocephin). Use with 100ml NS mini-bag PLUS and infuse over 30 min Sodium 2012-03 No Carol A 1,000 mL, M emoria Chloride 2-13 [place] Rate: l 0.9% 15:37: er 1,000 Arthur (Bolus) IV 00 ml/hr, 1,000 mL Infuse over: 1 hr, Route: IV, Dosing Weight 72.727 kg, Total Volume: 1,000, Priority: STAT, Start date: 03/07/13 9:37:00, Duration: 1 doses or times, Stop date: 03/07/13 10:36:00 Saline 2012-03 No Carol A 5 mL, Memor ia Flush 0.9% 2-13 [place] Route: l 15:37: er IVP, Drug Arthur 00 Form: INJ, Dosing Weight 72.727, kg, PRN, PRN Line Flush, Start date: 03/07/13 9:37:00, Duration: 30 day, Stop date: 04/06/13 9:36:00(Sa me as: BD Posiflush) morphine 2012-03 No Carol A 4 mg, 1 M emoria Sulfate 2-13 [place] mL, Route: l 15:37: er IVP, Drug [place] 00 form: INJ, ONCE, Dosing Weight 72.727, kg, Priority: STAT, Start date: 03/07/13 9:37:00, Stop date: 03/07/13 9:37:00(Sa me as:MORPhin e Sulfate) Zofran 2012-03 No Carol A 4 mg, 2 Mem oria 2-13 [place] mL, Route: l 15:37: er IVP, Drug [place] 00 form: INJ, ONCE, Dosing Weight 72.727, kg, Priority: STAT, Start date: 03/07/13 9:37:00, Stop date: 03/07/13 9:37:00(Sa me as: Zofran) acetaminoph 2013-1 No Carol A 650 mg, 2 Memoria en 2-13 [place] tab, l 15:37: er Route: PO, Arthur 00 Drug form: TAB, [...] Start date: 03/07/13 9:37:00, Stop date: 03/07/13 9:37:00([facility] As: Rocephin). Use with 100ml NS mini-bag PLUS and infuse over 30 min Sodium 2012-03 No Carol A 1,000 mL, M emoria Chloride 2-13 [place] Rate: l 0.9% 15:37: er 1,000 [place] (Bolus) IV 00 ml/hr, 1,000 mL Infuse over: 1 hr, Route: IV, Dosing Weight 72.727 kg, Total Volume: 1,000, Priority: STAT, Start date: 03/07/13 9:37:00, Duration: 1 doses or times, Stop date: 03/07/13 10:36:00 Saline 2012-03 No Carol A 5 mL, Memor ia Flush 0.9% 2-13 [place] Route: l 15:37: er IVP, Drug [place] 00 Form: INJ, Dosing Weight 72.727, kg, PRN, PRN Line Flush, Start date: 03/07/13 9:37:00, Duration: 30 day, Stop date: 04/06/13 9:36:00([facility] as: BD Posiflush) morphine 2012-03 No Carol A 4 mg, 1 M emoria Sulfate 2-13 [place] mL, Route: l 15:37: er IVP, Drug [place] 00 form: INJ, ONCE, Dosing Weight 72.727, kg, Priority: STAT, Start date: 03/07/13 9:37:00, Stop date: 03/07/13 9:37:00( me as:MORPhin e Sulfate) Zofran 2012-03 No Carol A 4 mg, 2 Mem oria 2-13 [place] mL, Route: l 15:37: er IVP, Drug Arthur 00 form: INJ, ONCE, Dosing Weight 72.727, kg, Priority: STAT, Start date: 03/07/13 9:37:00, Stop date: 03/07/13 9:37:00( me as: Zofran) acetaminoph 2012-03 No Carol A 650 mg, 2 Memoria en 2-13 [place] tab, l 15:37: er Route: PO, Arthur 00 Drug form: TAB, [...] Start date: 03/07/13 9:37:00, Stop date: 03/07/13 9:37:00([facility] As: Rocephin). Use with 100ml NS mini-bag PLUS and infuse over 30 min Sodium 2012-03 No Carol A 1,000 mL, M emoria Chloride 2-13 [place] Rate: l 0.9% 15:37: er 1,000 [place] (Bolus) IV 00 ml/hr, 1,000 mL Infuse over: 1 hr, Route: IV, Dosing Weight 72.727 kg, Total Volume: 1,000, Priority: STAT, Start date: 03/07/13 9:37:00, Duration: 1 doses or times, Stop date: 03/07/13 10:36:00 Saline 2012-03 No Carol A 5 mL, Memor ia Flush 0.9% 2-13 [place] Route: l 15:37: er IVP, Drug Arthur 00 Form: INJ, Dosing Weight 72.727, kg, PRN, PRN Line Flush, Start date: 03/07/13 9:37:00, Duration: 30 day, Stop date: 04/06/13 9:36:00([facility] as: BD Posiflush) acetaminoph 2012-03 No Nash 1,000 mg, M emoria en 05-08 Binu 2 tab, l 15:19: Cesta Route: PO, Cheko n 00 Drug form: TAB, ONCE, Dosing Weight 72.727, kg, Start date: 03/07/13 9:19:00, Stop date: 03/07/13 9:19:00Max acetaminop hen 4000 mg/day (4 gm/day). (Same as: Tylenol Extra Strength) acetaminoph 2012-03 No Nash 1,000 mg, M emoria en 05-08 Binu 2 tab, l 15:19: Cesta Route: PO, Cheko n 00 Drug form: TAB, ONCE, Dosing Weight 72.727, kg, Start date: 03/07/13 9:19:00, Stop date: 03/07/13 9:19:00Max acetaminop hen 4000 mg/day (4 gm/day). (Same as: Tylenol Extra Strength) acetaminoph 2012-03 No Nash 1,000 mg, M emoria en 05-08 Binu 2 tab, l 15:19: Cesta Route: PO, Cheko n 00 Drug form: TAB, ONCE, Dosing Weight 72.727, kg, Start date: 03/07/13 9:19:00, Stop date: 03/07/13 9:19:00Max acetaminop hen 4000 mg/day (4 gm/day). (Same as: Tylenol Extra Strength) acetaminoph 2012-03 No Nash 1,000 mg, M emoria en 05-08 Binu [...] 30 20 tab, pain, Substituti on Allowed Ultram 50 Yes Garrett 50 mg, 1 Memoria mg oral 1-10 Eliezer II tab, PO, l tablet 08:09: Q4H, PRN, Cheko n 30 20 tab, pain, Substituti on Allowed Ultram 50 Yes Garrett 50 mg, 1 Memoria mg oral 1-10 Eliezer II tab, PO, l tablet 08:09: Q4H, PRN, Cheko n 30 20 tab, pain, Substituti on Allowed Ultram 50 Yes Garrett 50 mg, 1 Memoria mg oral 1-10 Eliezer II tab, PO, l tablet 08:09: Q4H, PRN, Cheko n 30 20 tab, pain, Substituti on Allowed amoxicillin Yes Garrett 500 mg, 1 Memoria 500 mg oral 1-10 Eliezer II tab, PO, l tablet 08:09: TID, 30 Arthur 15 tab, Substituti on Allowed, TAB amoxicillin Yes Garrett 500 mg, 1 Memoria 500 mg oral 1-10 Eliezer II tab, PO, l tablet 08:09: TID, 30 Arthur 15 tab, Substituti on Allowed, TAB amoxicillin Yes Garrett 500 mg, 1 Memoria 500 mg oral 1-10 Eliezer II tab, PO, l tablet 08:09: TID, 30 [place] 15 tab, Substituti on Allowed, TAB amoxicillin Yes Garrett 500 mg, 1 Memoria 500 mg oral 1-10 Eliezer II tab, PO, l tablet 08:09: TID, 30 Arthur 15 tab, Substituti on Allowed, TAB Vital Signs Vital Name Observation Time Observation Value Comments Source Systolic blood 2021-10-18 18:30:00 135 mm[Hg] Dion haywood [facility] Diastolic blood 2021-10-18 18:30:00 92 mm[Hg] Omero julián [facility] Heart rate 2021-10-18 18:30:00 50 /min [facility] Respiratory rate 2021-10-18 18:30:00 13 /min [facility] Oxygen saturation in 2021-10-18 18:30:00 100 /min [facility] Pulse oximetry Branch Body temperature 2021-10-18 15:30:00 37.11 Kristy [facility] Body height 2021-10-18 15:30:00 165.1 cm [facility] Body weight 2021-10-18 15:30:00 88.451 kg [facility] BMI 2021-10-18 15:30:00 32.45 kg/m2 [facility] Systolic blood 2021-09-24 18:30:00 112 mm[Hg] [facility] Diastolic blood 2021-09-24 18:30:00 79 mm[Hg] [facility] Heart rate 2021-09-24 18:30:00 60 /min [facility] Respiratory rate 2021-09-24 18:30:00 12 /min [facility] Oxygen saturation in 2021-09-24 18:30:00 100 /min [facility] by [facility] Pulse oximetry Branch Body temperature 2021-09-24 16:20:00 36.56 Kristy [facility] Body height 2021-09-24 16:20:00 165.1 cm [facility] Body weight 2021-09-24 16:20:00 88.451 kg [facility] BMI 2021-09-24 16:20:00 32.45 kg/m2 [facility] Systolic blood 2021-04-10 21:57:00 132 mm[Hg] [facility] Diastolic blood 2021-04-10 21:57:00 92 mm[Hg] [facility] Heart rate 2021-04-10 21:57:00 71 /min [facility] Respiratory rate 2021-04-10 21:57:00 16 /min [facility] Oxygen saturation in 2021-04-10 21:57:00 100 /min [facility] Body temperature 2021-04-10 18:40:00 37.11 Kristy [facility] Body height 2021-04-10 18:40:00 162.6 cm [facility] Body weight 2021-04-10 18:40:00 90.719 kg [facility] BMI 2021-04-10 18:40:00 34.33 kg/m2 [facility] Systolic blood 2021-04-03 07:03:00 149 mm[Hg] [facility] Diastolic blood 2021-04-03 07:03:00 97 mm[Hg] [facility] Heart rate 2021-04-03 07:03:00 82 /min [facility] Body temperature 2021-04-03 07:03:00 37.11 Kristy [facility] Respiratory rate 2021-04-03 07:03:00 18 /min [facility] Body height 2021-04-03 07:03:00 162.6 cm [facility] Body weight 2021-04-03 07:03:00 90.719 kg [facility] BMI 2021-04-03 07:03:00 34.33 kg/m2 [facility] Oxygen saturation in 2021-04-03 07:03:00 98 /min [facility] Pulse oximetry Branch Systolic blood 2020-09-11 04:00:00 [...] 99 /min [facility] blood by [facility] liz Pulse oximetry Branch Body temperature 2020-09-11 00:50:00 37.06 Kristy [facility] Body height 2020-09-11 00:50:00 165.1 cm [facility] Body weight 2020-09-11 00:50:00 86.183 kg [facility] BMI 2020-09-11 00:50:00 31.62 kg/m2 [facility] Heart rate 2020-05-05 22:41:00 92 [...] /min [facility] by [place] [employer] liz Pulse oximetry Branch Heart rate 2020-05-05 [...] 100 /min [facility] blood by [employer] [facility] Pulse oximetry Branch Systolic blood 2019-10-04 [...] 100 /min [facility] Pulse oximetry Branch Body temperature 2019-10-04 21:25:00 [...] 100 /min [facility] Pulse oximetry Branch Body temperature 2019-10-04 21:25:00 36.61 Kristy [facility] Body height 2019-10-04 21:25:00 162.6 cm [facility] Body weight 2019-10-04 21:25:00 88.905 kg [facility] BMI 2019-10-04 21:25:00 33.64 kg/m2 [facility] BP Systolic 2022-02-02 16:41:00 BP Diastolic 2022-02-02 16:41:00 Weight Measured 2022-02-02 16:41:00 196.40 pounds Height Measured 2022-02-02 16:41:00 65.00 inches Body Temperature 2022-02-02 16:41:00 97.60 degrees Heart Rate 2022-02-02 16:41:00 83.00 /min Respiratory Rate 2022-02-02 16:41:00 BP Systolic 2021-10-20 14:58:00 127 mm[Hg] BP Diastolic 2021-10-20 14:58:00 80 mm[Hg] Weight Measured 2021-10-20 14:58:00 194.20 pounds Height Measured 2021-10-20 14:58:00 65.00 inches Body Temperature 2021-10-20 14:58:00 97.60 degrees Heart Rate 2021-10-20 14:58:00 80.00 /min Respiratory Rate 2021-10-20 14:58:00 21.00 /min BP Systolic 2021-10-07 13:11:00 117 mm[Hg] BP Diastolic 2021-10-07 13:11:00 88 mm[Hg] Weight Measured 2021-10-07 13:11:00 192.00 pounds Height Measured 2021-10-07 13:11:00 65.00 inches Body Temperature 2021-10-07 13:11:00 97.90 degrees Heart Rate 2021-10-07 13:11:00 78.00 /min Respiratory Rate 2021-10-07 13:11:00 18.00 /min BP Systolic 2021-09-29 15:29:00 116 mm[Hg] BP Diastolic 2021-09-29 15:29:00 78 mm[Hg] Weight Measured 2021-09-29 15:29:00 193.00 pounds Height Measured 2021-09-29 15:29:00 65.00 inches Body Temperature 2021-09-29 15:29:00 97.30 degrees Heart Rate 2021-09-29 15:29:00 81.00 /min Respiratory Rate 2021-09-29 15:29:00 24.00 /min BP Systolic 2021-09-21 10:59:00 BP Diastolic 2021-09-21 10:59:00 Weight Measured 2021-09-21 10:59:00 193.80 pounds Height Measured 2021-09-21 10:59:00 65.00 inches Body Temperature 2021-09-21 10:59:00 Heart Rate 2021-09-21 10:59:00 Respiratory Rate 2021-09-21 10:59:00 BP Systolic 2021-05-18 09:27:00 132 mm[Hg] BP Diastolic 2021-05-18 09:27:00 89 mm[Hg] Weight Measured 2021-05-18 09:27:00 193.80 pounds Height Measured 2021-05-18 09:27:00 65.00 inches Body Temperature 2021-05-18 09:27:00 97.00 degrees Heart Rate 2021-05-18 09:27:00 87.00 /min Respiratory Rate 2021-05-18 09:27:00 BP Systolic 2021-04-28 10:49:00 141 mm[Hg] BP Diastolic 2021-04-28 10:49:00 87 mm[Hg] Weight Measured 2021-04-28 10:49:00 197.40 pounds Height Measured 2021-04-28 10:49:00 65.00 inches Body Temperature 2021-04-28 10:49:00 98.10 degrees Heart Rate 2021-04-28 10:49:00 68.00 /min Respiratory Rate 2021-04-28 10:49:00 16.00 /min BP Systolic 2021-04-22 14:49:00 111 mm[Hg] BP Diastolic 2021-04-22 14:49:00 76 mm[Hg] Weight Measured 2021-04-22 14:49:00 195.00 pounds Height Measured 2021-04-22 14:49:00 65.00 inches Body Temperature 2021-04-22 14:49:00 98.30 degrees Heart Rate 2021-04-22 14:49:00 82.00 /min Respiratory Rate 2021-04-22 14:49:00 BP Systolic 2021-04-14 14:37:00 128 mm[Hg] BP Diastolic 2021-04-14 14:37:00 85 mm[Hg] Weight Measured 2021-04-14 14:37:00 195.80 pounds Height Measured 2021-04-14 14:37:00 65.00 inches Body Temperature 2021-04-14 14:37:00 97.10 degrees Heart Rate 2021-04-14 14:37:00 73.00 /min Respiratory Rate 2021-04-14 14:37:00 Heart Rate 2019-09-29 08:39:00 75.00 /min Respiratory Rate 2019-09-29 08:39:00 16.00 /min BP Systolic 2019-09-29 08:39:00 117 mm[Hg] BP Diastolic 2019-09-29 08:39:00 85 mm[Hg] Weight Measured 2019-09-29 08:39:00 194.80 pounds Height Measured 2019-09-29 08:39:00 65.00 inches Body Temperature 2019-09-29 08:39:00 98.40 degrees BP Systolic 2019-07-31 08:39:00 128 mm[Hg] BP Diastolic 2019-07-31 08:39:00 88 mm[Hg] Weight Measured 2019-07-31 08:39:00 195.60 pounds Height Measured 2019-07-31 08:39:00 65.00 inches Body Temperature 2019-07-31 08:39:00 97.90 degrees Heart Rate 2019-07-31 08:39:00 74.00 /min Respiratory Rate 2019-07-31 08:39:00 16.00 /min Systolic (mm Hg) 2018-04-11 01:42:00 [facility] Diastolic (mm Hg) 2018-04-11 01:42:00 [facility] Heart Rate 2018-04-11 01:42:00 [facility] Respitory Rate 2018-04-11 01:42:00 [facility] Weight 2018-04-10 23:32:00 [facility] Systolic (mm Hg) 2018-04-10 23:32:00 [facility] Diastolic (mm Hg) 2018-04-10 23:32:00 [facility] Respitory Rate 2018-04-10 23:32:00 [facility] Heart Rate 2018-04-10 23:32:00 [facility] Temperature Oral (F) 2018-04-10 23:32:00 98.4 F [facility] Systolic (mm Hg) 2018-03-29 23:00:00 [facility] Diastolic (mm Hg) 2018-03-29 23:00:00 [facility] Respitory Rate 2018-03-29 23:00:00 [facility] Heart Rate 2018-03-29 23:00:00 [facility] Weight 2018-03-29 20:56:00 [facility] BMI Calculated 2018-03-29 20:56:00 [facility] Height 2018-03-29 20:56:00 162.56 cm [facility] Systolic (mm Hg) 2018-03-29 20:56:00 [facility]ilram[facility] Diastolic (mm Hg) 2018-03-29 20:56:00 [facility] Heart Rate 2018-03-29 20:56:00 [facility] Respitory Rate 2018-03-29 20:56:00 [facility] Temperature Oral (F) 2018-03-29 20:56:00 98.9 F [facility] BP Systolic 2018-03-29 11:00:00 118 mm[Hg] BP Diastolic 2018-03-29 11:00:00 77 mm[Hg] Weight Measured 2018-03-29 11:00:00 171.80 pounds Height Measured 2018-03-29 11:00:00 65.00 inches Body Temperature 2018-03-29 11:00:00 98.30 degrees Heart Rate 2018-03-29 11:00:00 82.00 /min Respiratory Rate 2018-03-29 11:00:00 16.00 /min BP Systolic 2018-02-04 08:36:00 113 mm[Hg] BP Diastolic 2018-02-04 08:36:00 76 mm[Hg] Weight Measured 2018-02-04 08:36:00 175.40 pounds Height Measured 2018-02-04 08:36:00 65.00 inches Body Temperature 2018-02-04 08:36:00 98.70 degrees Heart Rate 2018-02-04 08:36:00 74.00 /min Respiratory Rate 2018-02-04 08:36:00 16.00 /min BP Systolic 2018-01-03 09:02:00 114 mm[Hg] BP Diastolic 2018-01-03 09:02:00 80 mm[Hg] Weight Measured 2018-01-03 09:02:00 172.00 pounds Height Measured 2018-01-03 09:02:00 65.00 inches Body Temperature 2018-01-03 09:02:00 97.50 degrees Heart Rate 2018-01-03 09:02:00 77.00 /min Respiratory Rate 2018-01-03 09:02:00 16.00 /min Heart Rate 2017-11-17 06:13:00 [facility] Systolic (mm Hg) 2017-11-17 06:13:00 [facility] Diastolic (mm Hg) 2017-11-17 06:13:00 [facility] Temperature Oral (F) 2017-11-17 06:13:00 98 F [facility] Respitory Rate 2017-11-17 06:13:00 [facility] Heart Rate 2017-11-17 05:22:00 [facility] Respitory Rate 2017-11-17 05:22:00 [facility] Systolic (mm Hg) 2017-11-17 05:22:00 [facility] Diastolic (mm Hg) 2017-11-17 05:22:00 [facility] Weight 2017-11-17 02:49:00 [facility] Heart Rate 2017-11-17 02:49:00 [facility] Respitory Rate 2017-11-17 02:49:00 [facility] Temperature Oral (F) 2017-11-17 02:49:00 98 F [facility] Systolic (mm Hg) 2017-11-17 02:49:00 [facility] Diastolic (mm Hg) 2017-11-17 02:49:00 [facility] Temperature Oral (F) 2017-10-31 23:23:00 98.4 F [facility] Systolic (mm Hg) 2017-10-31 23:23:00 [facility] Diastolic (mm Hg) 2017-10-31 23:23:00 [facility] Respitory Rate 2017-10-31 23:23:00 [facility] Temperature Oral (F) 2017-10-31 21:50:00 98.8 F [facility] Systolic (mm Hg) 2017-10-31 21:50:00 [facility] Diastolic (mm Hg) 2017-10-31 21:50:00 [facility] Respitory Rate 2017-10-31 21:50:00 [facility] Systolic (mm Hg) 2017-10-31 21:20:00 [facility] Diastolic (mm Hg) 2017-10-31 21:20:00 [facility] Respitory Rate 2017-10-31 21:20:00 [facility] BMI Calculated 2017-10-31 20:04:00 [facility] Weight 2017-10-31 20:04:00 [facility] Height 2017-10-31 20:04:00 162.56 cm [facility] Temperature Oral (F) 2017-10-31 20:04:00 99.6 F [facility] Heart Rate 2017-10-31 20:04:00 [facility] Systolic (mm Hg) 2017-10-26 07:51:00 [facility] Diastolic (mm Hg) 2017-10-26 07:51:00 [facility] Respitory Rate 2017-10-26 07:51:00 [facility] Heart Rate 2017-10-26 07:51:00 [facility] Temperature Oral (F) 2017-10-26 07:51:00 98.2 F [facility] Weight 2017-10-26 00:18:00 [facility] Respitory Rate 2017-10-26 00:18:00 [facility] Heart Rate 2017-10-26 00:18:00 [facility] Temperature Oral (F) 2017-10-26 00:18:00 98.2 F [facility] Systolic (mm Hg) 2017-10-26 00:18:00 [facility] Diastolic (mm Hg) 2017-10-26 00:18:00 [facility] Heart Rate 2017-10-13 17:16:00 [facility] Respitory Rate 2017-10-13 17:16:00 [facility] Systolic (mm Hg) 2017-10-13 17:16:00 [facility] Diastolic (mm Hg) 2017-10-13 17:16:00 [facility] Temperature Oral (F) 2017-10-13 17:16:00 98.2 F [facility] Temperature Oral (F) 2017-10-13 15:29:00 98.2 F [facility] Heart Rate 2017-10-13 15:29:00 [facility] Systolic (mm Hg) 2017-10-13 15:29:00 [facility] Diastolic (mm Hg) 2017-10-13 15:29:00 [facility] Respitory Rate 2017-10-13 15:29:00 [facility] Weight 2017-10-13 14:33:00 [facility] BMI Calculated 2017-10-13 14:33:00 [facility] Height 2017-10-13 14:33:00 162.56 cm [facility] Systolic (mm Hg) 2017-10-13 14:33:00 [facility] Diastolic (mm Hg) 2017-10-13 14:33:00 [facility] Heart Rate 2017-10-13 14:33:00 [facility] Respitory Rate 2017-10-13 14:33:00 [facility] Temperature Oral (F) 2017-10-13 14:33:00 98.4 F [facility] Heart Rate 2016-05-02 18:54:00 [facility] Systolic (mm Hg) 2016-05-02 18:54:00 [facility] Diastolic (mm Hg) 2016-05-02 18:54:00 [facility] Respitory Rate 2016-05-02 18:54:00 [facility] Temperature Oral (F) 2016-05-02 18:54:00 98.2 F [facility] Systolic (mm Hg) 2016-05-02 13:02:00 [facility] Diastolic (mm Hg) 2016-05-02 13:02:00 [facility] Heart Rate 2016-05-02 13:02:00 [facility] Respitory Rate 2016-05-02 13:02:00 [facility] Temperature Oral (F) 2016-05-02 13:02:00 98.9 F [facility] Systolic (mm Hg) 2016-05-02 11:09:00 [facility] Diastolic (mm Hg) 2016-05-02 11:09:00 [facility] Heart Rate 2016-05-02 11:09:00 [facility] Respitory Rate 2016-05-02 11:09:00 [facility] Temperature Oral (F) 2016-05-02 11:09:00 98.2 F [facility] BMI Calculated 2016-05-01 13:16:00 [facility] Weight 2016-05-01 13:16:00 [facility] Height 2016-04-24 16:15:00 162.56 cm [facility] Respitory Rate 2016-03-18 00:41:00 [facility] Systolic (mm Hg) 2016-03-18 00:41:00 [facility] [place] Diastolic (mm Hg) 2016-03-18 00:41:00 [facility] Temperature Oral (F) 2016-03-18 00:41:00 98.7 F [facility] Heart Rate 2016-03-18 00:41:00 [facility] Weight 2016-03-17 22:25:00 [facility] BMI Calculated 2016-03-17 22:25:00 [facility] Height 2016-03-17 22:25:00 162.56 cm [facility] Temperature Oral (F) 2016-03-17 22:25:00 102.4 F [facility] Systolic (mm Hg) 2016-03-17 22:25:00 [facility] Diastolic (mm Hg) 2016-03-17 22:25:00 [facility] Heart Rate 2016-03-17 22:25:00 [facility] Respitory Rate 2016-03-17 22:25:00 [facility] Temperature Oral (F) 2015-08-03 15:47:00 98.1 F [facility] Respitory Rate 2015-08-03 15:47:00 [facility] Systolic (mm Hg) 2015-08-03 15:47:00 [facility] Diastolic (mm Hg) 2015-08-03 15:47:00 [facility] Heart Rate 2015-08-03 15:47:00 [facility] Systolic (mm Hg) 2015-08-03 14:34:00 [facility] Diastolic (mm Hg) 2015-08-03 14:34:00 [facility] Height 2015-08-03 14:34:00 165.1 cm [facility] Heart Rate 2015-08-03 14:34:00 [facility] Respitory Rate 2015-08-03 14:34:00 [facility] BMI Calculated 2015-08-03 14:34:00 [facility] Weight 2015-08-03 14:34:00 [facility] Temperature Oral (F) 2015-08-03 14:34:00 98.1 F [facility] Respitory Rate 2015-04-08 21:27:00 [facility] Systolic (mm Hg) 2015-04-08 21:27:00 [facility] Diastolic (mm Hg) 2015-04-08 21:27:00 [facility] Heart Rate 2015-04-08 21:27:00 [facility] Weight 2015-04-08 19:07:00 [facility] Respitory Rate 2015-04-08 17:49:00 [facility] Heart Rate 2015-04-08 17:49:00 [facility] Systolic (mm Hg) 2015-04-08 17:49:00 [facility] [place] Diastolic (mm Hg) 2015-04-08 17:49:00 [facility] Heart Rate 2015-04-08 13:34:00 [facility] Respitory Rate 2015-04-08 13:34:00 [facility] Systolic (mm Hg) 2015-04-08 13:34:00 [facility] Diastolic (mm Hg) 2015-04-08 13:34:00 [facility] Temperature Oral (F) 2015-04-08 10:00:00 97.5 F [facility] Temperature Oral (F) 2015-04-08 06:00:00 97.9 F [facility] Temperature Oral (F) 2015-04-08 02:00:00 98.6 F [facility] BMI Calculated 2015-04-07 23:28:00 [facility] Weight 2015-04-07 23:28:00 [facility] Height 2015-04-07 23:28:00 165.1 cm [facility] Weight 2015-04-07 13:01:00 [facility] BMI Calculated 2015-04-07 13:01:00 [facility] Height 2015-04-07 13:01:00 165.1 cm [facility] Respitory Rate 2014-11-07 17:53:00 [facility] Systolic (mm Hg) 2014-11-07 17:53:00 [facility] Diastolic (mm Hg) 2014-11-07 17:53:00 [facility] Heart Rate 2014-11-07 17:53:00 [facility] Temperature Oral (F) 2014-11-07 17:53:00 98.6 F [facility] Systolic (mm Hg) 2014-11-07 12:53:00 [facility] Diastolic (mm Hg) 2014-11-07 12:53:00 [facility] Heart Rate 2014-11-07 12:53:00 [facility] Respitory Rate 2014-11-07 12:53:00 [facility] Temperature Oral (F) 2014-11-07 12:53:00 98.9 F [facility] Systolic (mm Hg) 2014-11-07 09:00:00 [facility] [place] Diastolic (mm Hg) 2014-11-07 09:00:00 [facility] Temperature Oral (F) 2014-11-07 09:00:00 98.1 F [facility] Heart Rate 2014-11-07 09:00:00 [facility] Respitory Rate 2014-11-07 09:00:00 [facility] BMI Calculated 2014-11-05 19:27:00 [facility] Weight 2014-11-05 19:27:00 [facility] Height 2014-11-05 19:27:00 165.1 cm [facility] Temperature Oral (F) 2014-11-03 18:30:00 98.0 F [facility] Systolic (mm Hg) 2014-11-03 18:30:00 [facility] [place] Diastolic (mm Hg) 2014-11-03 18:30:00 [facility] Respitory Rate 2014-11-03 18:30:00 [facility] Temperature Oral (F) 2014-11-03 17:20:00 98.2 F [facility] Respitory Rate 2014-11-03 17:20:00 [facility] Systolic (mm Hg) 2014-11-03 17:20:00 [facility] [place] Diastolic (mm Hg) 2014-11-03 17:20:00 [facility] Systolic (mm Hg) 2014-11-03 15:30:00 [facility] [place] Diastolic (mm Hg) 2014-11-03 15:30:00 [facility] Respitory Rate 2014-11-03 15:30:00 [facility] Heart Rate 2014-11-03 13:34:00 [facility] Weight 2014-11-03 13:34:00 [facility] Temperature Oral (F) 2014-11-03 13:34:00 98.2 F [facility] Diastolic (mm Hg) 2013-03-08 01:37:00 [facility] Heart Rate 2013-03-08 01:37:00 [facility] Temperature Oral (F) 2013-03-08 01:37:00 100.1 F [facility] Systolic (mm Hg) 2013-03-08 01:37:00 [facility] Respitory Rate 2013-03-08 01:37:00 [facility] Temperature Oral (F) 2013-03-08 00:54:00 102.8 F [facility] Temperature Oral (F) 2013-03-08 00:22:00 103.1 F [facility] Systolic (mm Hg) 2013-03-07 23:25:00 [facility] Respitory Rate 2013-03-07 23:25:00 [facility] Diastolic (mm Hg) 2013-03-07 23:25:00 [facility] Heart Rate 2013-03-07 23:25:00 [facility] Systolic (mm Hg) 2013-03-07 20:11:00 [facility] Diastolic (mm Hg) 2013-03-07 20:11:00 [facility] Respitory Rate 2013-03-07 20:11:00 [facility] Heart Rate 2013-03-07 20:11:00 [facility] Diastolic (mm Hg) 2013-03-07 18:24:00 [facility] Respitory Rate 2013-03-07 18:24:00 [facility] Systolic (mm Hg) 2013-03-07 18:24:00 [facility] Heart Rate 2013-03-07 18:24:00 [facility] Temperature Oral (F) 2013-03-07 18:24:00 99.1 F [facility] Systolic (mm Hg) 2013-03-07 17:30:00 [facility] Diastolic (mm Hg) 2013-03-07 17:30:00 [facility] Heart Rate 2013-03-07 17:30:00 [facility] Respitory Rate 2013-03-07 17:30:00 [facility] Systolic (mm Hg) 2013-03-07 15:59:00 [facility] Diastolic (mm Hg) 2013-03-07 15:59:00 [facility] Heart Rate 2013-03-07 15:59:00 [facility] Respitory Rate 2013-03-07 15:59:00 [facility] Temperature Oral (F) 2013-03-07 15:16:00 101.2 F [facility] Height 2012-04-04 03:37:00 162.56 cm [facility] Weight 2012-04-04 03:37:00 [facility] Procedures Procedure Date / Time Performing Clinician Source Performed COMP. METABOLIC PANEL 2021-10-18 17:29:00 Cristal Young [facility] ([id number]) [facility] CBC WITH DIFF 2021-10-18 17:29:00 Cristal Young [facility] CT ABDOMEN PELVIS WO 2021-10-18 17:18:40 Cristal Young [facility] CONTRAST [facility] URINALYSIS 2021-10-18 16:11:00 Cristal Young [facility] CONSENT/REFUSAL FOR 2021-10-18 15:31:32 [facility] Name [facility] CT ABDOMEN PELVIS W 2021-09-24 17:21:53 Alejandrina Pena [facility] CONTRAST [facility] LIPASE 2021-09-24 16:53:00 Alejandrina Pena [facility] COMP. METABOLIC PANEL 2021-09-24 16:53:[address] [facility] ([id number]) [facility] CBC WITH DIFF 2021-09-24 16:53:00 [facility] PROTHROMBIN TIME / INR 2021-09-24 16:53:00 Alejandrina Pena [facility] ACTIVATED PARTIAL 2021-09-24 16:53:00 Jean [facility] THRMPLAS MELISSA [facility] URINALYSIS 2021-09-24 16:53:00 [facility] CONSENT/REFUSAL FOR 2021-09-24 16:13:53 [facility] POCT TEST 2021-04-10 20:49:00 Ranjit Church [facility] CREATINE KINASE 2021-04-10 20:44:00 Ranjit [facility] COMP. METABOLIC PANEL 2021-04-10 20:44:00 Ranjit [facility] ([id number]) [facility] CBC WITH DIFF 2021-04-10 20:44:00 Ranjit [facility] URINALYSIS 2021-04-10 20:44:00 Ranjit [facility] XR CHEST 1 VW 2021-04-10 19:38:38 Ranjit [facility] CONSENT/REFUSAL FOR 2021-04-10 18:33:05 Doctor Unassigned, No [facility] [place] [facility] Name [facility] XR ABDOMEN ACUTE SERIES 2021-04-03 07:31:57 Diana Bradford [facility] URINALYSIS 2021-04-03 07:10:00 Diana Bradford [facility] COVID-19 (ID NOW RAPID 2021-04-03 07:10:00 Diana Bradford [facility] TESTING) [facility] NOTICE OF PRIVACY 2021-04-03 06:51:09 Doctor Unassigned, No [facility] PRACTICES Name [facility] CONSENT/REFUSAL FOR 2021-04-03 06:49:41 Doctor Un[facility]igned, [facility] Name [facility] EKG-12 LEAD 2020-09-11 03:54:05 Ingrid Paez [facility] XR CHEST 1 VW 2020-09-11 01:03:05 Ingrid Paez [facility] CBC WITH DIFF 2020-09-11 00:55:00 Ingrid Paez [facility] PROTHROMBIN TIME / INR 2020-09-11 00:55:00 Ingrid Paez [facility] ACTIVATED PARTIAL 2020-09-11 00:55:00 Ingrid Paez [facility] THRMPLAS MELISSA [facility] LIPASE 2020-09-11 00:55:00 Ingrid Paez [facility] TROPONIN I 2020-09-11 00:55:00 Ingrid Paez [facility] COMP. METABOLIC PANEL 2020-09-11 00:55:00 Ingrid Paez [facility] ([id number]) [facility] CONSENT/REFUSAL FOR 2020-09-11 00:37:21 [facility]igned, No [facility] [place] [facility] Name [facility] URINALYSIS 2020-05-05 21:33:00 Marisol Ocampo [place] [facility] NOTICE OF PRIVACY 2020-05-05 21:03:49 Doctor Unassigned, No [facility] CONSENT/REFUSAL FOR 2020-05-05 21:02:41 Doctor Unassigned, No [facility] DIAGNOSIS AND TREATMENT [facility] XR FOOT 3+ VW LEFT 2019-10-04 22:26:37 Ranjit Church [facility] NOTICE OF PRIVACY 2019-10-04 21:14:42 Doctor Unassigned, No [facility] Laparoscopic 2016-05-01 06:00:00 [facility] hysterectomy [facility] section<sup>1</sup> Plan of Care Planned Activity Planned Date Details Comments Source Goal Plan of Care Note [code = 44529-3] Goal Plan of Care Note [code = 63183-3] Goal Plan of Care Note [code = 06111-9] Goal Plan of Care Note [code = 96824-3] Goal Plan of Care Note [code = 93183-8] Goal Plan of Care Note [code = 91779-6] Goal Plan of Care Note [code = 56317-1] Goal Plan of Care Note [code = 90765-8] Goal Plan of Care Note [code = 46664-4] Goal Plan of Care Note [code = 67751-9] Goal Plan of Care Note [code = 86348-9] Goal Plan of Care Note [code = 68144-1] Goal Plan of Care Note [code = 81802-9] Goal Plan of Care Note [code = 60422-4] Goal Plan of Care Note [code = 96748-5] Goal Plan of Care Note [code = 48871-2] Goal Plan of Care Note [code = 42840-1] Goal Plan of Care Note [code = 86593-1] Goal Plan of Care Note [code = 02492-3] Goal Plan of Care Note [code = 62501-6] Goal Plan of Care Note [code = 14497-5] Goal Plan of Care Note [code = 73767-8] Goal Plan of Care Note [code = 79123-0] Goal Plan of Care Note [code = 94200-8] Goal Plan of Care Note [code = 84374-8] Goal Plan of Care Note [code = 98307-0] Goal Plan of Care Note [code = 33172-8] Goal Plan of Care Note [code = 54295-4] Goal Plan of Care Note [code = 92944-0] Goal Plan of Care Note [code = 31153-6] Goal Plan of Care Note [code = 27867-2] Goal Plan of Care Note [code = 28600-3] Goal Plan of Care Note [code = 77150-0] Goal Plan of Care Note [code = 06301-1] Goal Plan of Care Note [code = 80211-3] Goal Plan of Care Note [code = 74906-1] Goal Plan of Care Note [code = 28043-1] Goal Plan of Care Note [code = 33654-0] Goal Plan of Care Note [code = 06229-5] Goal Plan of Care Note [code = 01709-7] Goal Plan of Care Note [code = 71133-9] Goal Plan of Care Note [code = 87322-5] Goal Plan of Care Note [code = 01809-0] Goal Plan of Care Note [code = 19436-2] Goal Plan of Care Note [code = 68829-0] Goal Plan of Care Note [code = 19584-3] Goal Plan of Care Note [code = 64699-9] Goal Plan of Care Note [code = 57544-3] Goal Plan of Care Note [code = 85093-9] Goal Plan of Care Note [code = 39546-6] Goal Plan of Care Note [code = 12895-3] Goal Plan of Care Note [code = 60280-9] Goal Plan of Care Note [code = 95085-8] Goal Plan of Care Note [code = 56513-5] Goal Plan of Care Note [code = 76877-0] Goal Plan of Care Note [code = 79569-7] Goal Plan of Care Note [code = 46655-2] Goal Plan of Care Note [code = 59850-5] Goal Plan of Care Note [code = 10885-6] Goal Plan of Care Note [code = 05149-2] Goal Plan of Care Note [code = 89083-5] Goal Plan of Care Note [code = 07635-4] Goal Plan of Care Note [code = 37668-0] Goal Plan of Care Note [code = 13494-3] Goal Plan of Care Note [code = 38308-0] Goal Plan of Care Note [code = 30952-9] Goal Plan of Care Note [code = 66654-7] Goal Plan of Care Note [code = 78410-9] Goal Plan of Care Note [code = 81338-0] Goal Plan of Care Note [code = 44291-3] Goal Plan of Care Note [code = 88416-7] Goal Plan of Care Note [code = 16056-9] Goal Plan of Care Note [code = 72087-7] Goal Plan of Care Note [code = 98592-4] Goal Plan of Care Note [code = 93847-7] Goal Plan of Care Note [code = 06925-0] Goal Plan of Care Note [code = 02248-8] Goal Plan of Care Note [code = 18899-8] Goal Plan of Care Note [code = 11071-6] Goal Plan of Care Note [code = 00463-2] Goal Plan of Care Note [code = 72227-5] Goal Plan of Care Note [code = 70192-4] Goal Plan of Care Note [code = 77203-6] Goal Plan of Care Note [code = 61263-6] Goal Plan of Care Note [code = 35632-3] Goal Plan of Care Note [code = 73034-9] Goal Plan of Care Note [code = 99360-1] Goal Plan of Care Note [code = 42527-1] Goal Plan of Care Note [code = 15136-3] Goal Plan of Care Note [code = 54821-6] Goal Plan of Care Note [code = 50168-2] Goal Plan of Care Note [code = 05630-3] Goal Plan of Care Note [code = 74425-9] Goal Plan of Care Note [code = 61307-6] Goal Plan of Care Note [code = 43010-2] Goal Plan of Care Note [code = 14875-8] Goal Plan of Care Note [code = 37920-1] Goal Plan of Care Note [code = 22465-9] Goal Plan of Care Note [code = 21412-9] Goal Plan of Care Note [code = 20565-7] Goal Plan of Care Note [code = 23720-1] Goal Plan of Care Note [code = 47220-4] Goal Plan of Care Note [code = 92614-0] Goal Plan of Care Note [code = 60120-6] Goal Plan of Care Note [code = 74984-4] Goal Plan of Care Note [code = 75553-0] Goal Plan of Care Note [code = 88393-2] Goal Plan of Care Note [code = 31509-4] Goal Plan of Care Note [code = 20804-5] Goal Plan of Care Note [code = 48336-5] Goal Plan of Care Note [code = 77343-2] Goal Plan of Care Note [code = 94842-8] Goal Plan of Care Note [code = 84854-7] Goal Plan of Care Note [code = 77517-6] Goal Plan of Care Note [code = 66195-1] Goal Plan of Care Note [code = 59498-5] Goal Plan of Care Note [code = 88910-2] Goal Plan of Care Note [code = 93780-1] Goal Plan of Care Note [code = 72733-6] Goal Plan of Care Note [code = 40903-6] Goal Plan of Care Note [code = 41524-7] Goal Plan of Care Note [code = 98365-7] Goal Plan of Care Note [code = 93765-2] Goal Plan of Care Note [code = 48760-6] Goal Plan of Care Note [code = 15811-5] Goal Plan of Care Note [code = 16396-2] Goal Plan of Care Note [code = 45295-7] Goal Plan of Care Note [code = 98208-5] Goal Plan of Care Note [code = 32739-5] Goal Plan of Care Note [code = 70682-1] Goal Plan of Care Note [code = 80758-4] Goal Plan of Care Note [code = 67136-7] Goal Plan of Care Note [code = 31196-2] Goal Plan of Care Note [code = 72270-2] Goal Plan of Care Note [code = 91726-6] Goal Plan of Care Note [code = 45116-5] Goal Plan of Care Note [code = 87296-4] Goal Plan of Care Note [code = 31669-1] Goal Plan of Care Note [code = 86921-8] Goal Plan of Care Note [code = 05138-9] Goal Plan of Care Note [code = 47658-8] Goal Plan of Care Note [code = 69687-0] Goal Plan of Care Note [code = 38779-8] Goal Plan of Care Note [code = 88629-8] Goal Plan of Care Note [code = 09108-3] Goal Plan of Care Note [code = 07621-0] Goal Plan of Care Note [code = 53767-9] Goal Plan of Care Note [code = 16051-8] Goal Plan of Care Note [code = 19135-0] Goal Plan of Care Note [code = 90297-5] Goal Plan of Care Note [code = 30838-8] Goal Plan of Care Note [code = 08473-5] Goal Plan of Care Note [code = 89371-8] Goal Plan of Care Note [code = 90570-6] Goal Plan of Care Note [code = 59850-5] Goal Plan of Care Note [code = 10430-2] Goal Plan of Care Note [code = 10478-0] Goal Plan of Care Note [code = 06233-3] Goal Plan of Care Note [code = 21862-7] Goal Plan of Care Note [code = 88204-7] Goal Plan of Care Note [code = 81744-4] Goal Plan of Care Note [code = 24189-9] Goal Plan of Care Note [code = 07601-2] Goal Plan of Care Note [code = 22089-9] Goal Plan of Care Note [code = 59641-9] Goal Plan of Care Note [code = 42482-6] Goal Plan of Care Note [code = 74700-4] Goal Plan of Care Note [code = 25777-3] Goal Plan of Care Note [code = 99163-6] Goal Plan of Care Note [code = 19550-6] Goal Plan of Care Note [code = 11447-6] Goal Plan of Care Note [code = 79626-7] Goal Plan of Care Note [code = 46226-2] Goal Plan of Care Note [code = 01239-2] Goal Plan of Care Note [code = 66733-7] Goal Plan of Care Note [code = 72118-0] Goal Plan of Care Note [code = 04325-2] Goal Plan of Care Note [code = 47177-1] Goal Plan of Care Note [code = 74396-4] Goal Plan of Care Note [code = 00127-6] Goal Plan of Care Note [code = 18503-1] Goal Plan of Care Note [code = 44460-8] Goal Plan of Care Note [code = 78646-0] Goal Plan of Care Note [code = 15152-6] Goal Plan of Care Note [code = 36360-6] Goal Plan of Care Note [code = 11667-6] Goal Plan of Care Note [code = 42073-3] Goal Plan of Care Note [code = 35238-8] Goal Plan of Care Note [code = 70217-9] Goal Plan of Care Note [code = 03640-5] Goal Plan of Care Note [code = 74056-5] Goal Plan of Care Note [code = 75733-4] Goal Plan of Care Note [code = 40069-0] Goal Plan of Care Note [code = 80356-7] Goal Plan of Care Note [code = 46518-6] Goal Plan of Care Note [code = 65313-1] Goal Plan of Care Note [code = 41259-1] Goal Plan of Care Note [code = 86002-5] Goal Plan of Care Note [code = 21556-9] Goal Plan of Care Note [code = 57096-1] Goal Plan of Care Note [code = 50894-5] Goal Plan of Care Note [code = 77080-2] Goal Plan of Care Note [code = 66689-4] Goal Plan of Care Note [code = 97958-1] Goal Plan of Care Note [code = 77975-8] Goal Plan of Care Note [code = 93662-9] Goal Plan of Care Note [code = 46448-6] Goal Plan of Care Note [code = 75039-2] Encounters Start End Encounter Admission Attending Care Care Encounter Source Date/Time Date/Time Type Type Clinicians Facility Department ID 2022-02-03 2022-02-03 Outpatient [facility] [id number] Emiliano 13:28:04 13:28:04 1111 F Luis Alberto 2022-02-02 2022-02-02 Outpatient [facility] [id number] Emiliano 16:28:55 16:28:55 1110 F Luis Alberto 2022-02-02 2022-02-02 Outpatient [id number]- [id number] fb5n1k-3 00:00:00 00:00:00 Visit 14v5-8n28 1c9-5h36-5 -8712-4fd 712-4fdd90 o7597t41y 85f97b 2021-10-20 2021-10-20 Outpatient 84xb3jr2- [id number] zf0iu8-9 00:00:00 00:00:00 Visit 1687-4b02 687-4b02-8 -86fe-74e 6fe-74ef79 o67g478z1 c652b1 2021-10-18 2021-10-18 [facility] [id number] Univers 10:32:00 14:15:00 CRISTAL [facility] 2021-10-18 2021-10-18 [facility] [id number] Univers 10:32:00 14:15:00 Cristal CARROLL 350.1.13.10 Pauline 4.2.7.2.686 [facility] [phone] [address] 2021-10-07 2021-10-07 Outpatient t2f7h5u7- [id number] b1 y1x1e0-h 00:00:00 00:00:00 Visit fbd6-47c9 bd6-47c9-8 -8149-d53 149-d53be4 ih65853q5 7622c3 2021-09-29 2021-09-29 Outpatient [id number]- [id number] 5vs287-x 00:00:00 00:00:00 Visit bab9-4b5f ab9-4b5f-9 -63m0-274 0c3-970151 833uw7d38 ae9f73 2021-09-24 2021-09-24 [facility] [id number] Univers 11:21:00 13:51:00 ALEJANDRINA gallego [facility] 2021-09-24 2021-09-24 [facility] [id number] Univers 11:21:00 13:51:00 Alejandrina CARROLL 350.1.13.10 i ty of [place] 4.2.7.2.686 [facility] [id number] [address] 2021-09-21 2021-09-21 Outpatient 7s4v74r9- [id number] 7d 7s08i5-5 00:00:00 00:00:00 Visit 8484-8668 462-4366-a -e983-823 185-20609w 25x82bqrn 36fdaa 2021-04-10 2021-04-10 Emergency X [facility] ERT [id number] Univers 12:42:00 16:01:00 SHINTA ity [facility] 2021-04-10 2021-04-10 Emergency [facility] 1.2.840.114 [id number] Univers 12:42:00 16:01:00 Ranjit DANGELOSTAR 350.1.13.10 i ty of [place] 4.2.7.2.[address] [place] [id number] 2021-04-03 2021-04-03 Emergency X [facility] ERT [id number] Univers 01:07:00 01:54:00 DIANA gallego [facility] 2021-04-03 2021-04-03 Emergency [facility] 1.2.017.155 [id number] Univers 01:07:00 01:54:00 Diana CARROLL 350.1.13.10 ity of [place] 4.2.7.2.[address] [place] [phone] 2020-09-10 2020-09-10 Emergency [facility] 1.2.357.515 [id number] Univers 19:42:00 23:08:00 Ingrid Carroll 350.1.13.10 ity of [place] 4.2.7.2.[address] [place] [phone] 2020-09-10 2020-09-10 Emergency X [facility] ERT [id number] Univers 19:42:00 19:42:00 INGRID jackmany [facility] 2020-05-05 2020-05-05 Emergency [facility] 1.2.230.585 [id number] 15:10:00 16:55:00 Marisol R [place] 350.1.13.10 [place] [address] [place] [address] [phone] [facility] 2020-05-05 2020-05-05 Emergency [facility] 1.2.750.159 [id number] Univers 15:10:00 16:55:00 Marisol R [place] 350.1.13.10 i ty of [place] 4.2.7.2.[address] [place] [id number] 2020-05-05 2020-05-05 Emergency X [facility] ERT [id number] Univers 15:03:00 15:03:00 MARISOL itlesly [facility] 2019-10-04 2019-10-04 Emergency [facility] 1.2.840.114 [id number] 16:26:50 19:58:00 Shinta [place] 350.1.13.[address] [place] [address] [place] [address] [phone] [facility] 2019-10-04 2019-10-04 Emergency [facility] 1.2.840.114 [id number] Univers 16:26:50 19:58:00 Shinta [place] 350.1.13.10 i ty of [place] 4.2.7.2.[address] [place] [phone] 2019-10-04 2019-10-04 Emergency X [facility] ERT [id number] Univers 16:26:50 16:26:50 RANJIT itlesly [facility] 2018-04-10 2018-04-11 Emergency [facility] [id number] Memoria 23:22:00 01:59:00 claudia Gibson 15 l [facility] 2018-04-10 2018-04-11 Emergency [facility] [id number] Memoria 23:22:00 01:59:00 claudia Gibson 15 l [facility] 2018-04-10 2018-04-10 Outpatient Bertha [facility] [id number] 17:22:00 19:59:00 Jeremiah Adkins 15 2018-03-29 2018-03-29 [facility] [id number] Memoria 20:53:00 23:30:00 r Arthur 14 [facility] 2018-03-29 2018-03-29 [facility] [id number] Memoria 20:53:00 23:30:00 r Arthur 14 [facility] 2018-03-29 2018-03-29 Outpatient Taj [facility] [id number] 14:53:00 17:30:00 Arlinjarred Wang 14 2017-11-17 2017-11-17 [facility] [id number] Memoria 02:34:00 06:15:00 r Elgin 13 [facility] 2017-11-17 2017-11-17 [facility] [id number] Memoria 02:34:00 06:15:00 r El[place] 13 [facility] 2017-11-16 2017-11-[address] [id number] 21:34:00 01:15:00 Shirley 13 2017-11-16 2017-11-16 Emergency E [facility]BL [facility]BL [id number] MHBL 21:34:00 21:34:00 2017-10-31 2017-10-31 [facility] [id number] Memoria 19:57:00 23:33:00 r Arthur 12 [facility] 2017-10-31 2017-10-31 [facility] [id number] Memoria 19:57:00 23:33:00 r Elgin 12 [facility] 2017-10-31 2017-10-31 Outpatient Aznaurova-A [facility] [id number] 14:57:00 18:33:00 karenmartín Rusty Lalita Mark 2017-10-26 2017-10-26 [facility] [id number] Memoria 00:14:00 07:52:00 r [facility] 2017-10-26 2017-10-26 [facility] [id number] Memoria 00:14:00 07:52:00 r Arthur [address] [place] [address] 2017-10-25 2017-10-26 Outpatient Amelia [facility] [id number] 19:14:00 02:52:00 Juve Sealsall 2017-10-13 2017-10-13 [facility] [id number] Memoria 14:30:00 17:24:00 r Arthur Yazmin [facility] 2017-10-13 2017-10-13 [facility] [id number] Memoria 14:30:00 17:24:00 claudia Gibson Yazmin [facility] 2017-10-13 2017-10-13 Outpatient Christy, MHPL PL [id number] 09:30:00 12:24:00 Young Arce [facility] 2017-10-13 2017-10-13 Outpatient Christy, PL PL [id number] 09:30:00 12:24:00 Young Yazmin [facility] 2017-10-05 2017-10-05 Emergency [facility] [id number] 5 [place] 12:20:00 12:20:00 [facility] 2017-07-14 2017-07-14 Emergency [facility] [id number] 9 [place] 08:07:11 08:07:11 [facility] 2017-07-14 2017-07-14 Outpatient [facility] [id number] 42 [place] 05:07:03 05:07:03 [facility] 2016-05-01 2016-05-02 [facility]ded [facility] [id number] Memoria 11:36:30 21:50:00 Outpatient claudia Gibson Patel [facility] 2016-05-01 2016-05-02 [facility] [id number] Memoria 11:36:30 21:50:00 Outpatient claudia Sweeney l [facility] 2016-05-01 2016-05-02 Outpatient Darren Mars [facility] [id number] 05:36:30 15:50:00 T 09 2016-03-17 2016-03-18 [facility] [id number] Memoria 21:57:00 01:05:00 claudia Carmona [facility] 2016-03-17 2016-03-18 [facility] [id number] Memoria 21:57:00 01:05:00 claudia Carmona [facility] 2016-03-17 2016-03-17 [place] [id number] 15:57:00 19:05:00 Asim Sands 07 2015-08-03 2015-08-03 EC [facility] [id number] Memoria 14:32:00 16:11:00 Emergency r Elgin 06 l Center [facility] 2015-08-03 2015-08-03 [facility] [id number] Memoria 14:32:00 16:11:00 Emergency r Arthur 06 l [facility] 2015-08-03 2015-08-03 Outpatient Ulysses, [facility] [id number] 09:32:00 11:11:00 Sofiya 06 Evelyn 2015-04-07 2015-04-08 OBS [facility] [id number] Memoria 13:00:00 23:27:00 Observatio r Elgin 05 l n Patient [facility] 2015-04-07 2015-04-08 OBS [facility] [id number] Memoria 13:00:00 23:27:00 Observatio r Arthur 05 l n Patient [facility] 2015-04-07 2015-04-08 Outpatient Michael, [facility] [id number] 07:00:00 17:27:00 Sunny 05 2014-11-05 2014-11-07 OBS [facility] [id number] Memoria 19:22:00 21:40:00 Observatio r Arthur 04 l n Patient [facility] 2014-11-05 2014-11-07 OBS [facility] [id number] Memoria 19:22:00 21:40:00 Observatio r Arthur 04 l n Patient [facility] 2014-11-05 2014-11-07 Outpatient [facility] [id number] 14:22:00 16:40:00 Jude 04 2014-11-03 2014-11-03 [facility] [id number] Memoria 13:30:00 18:40:00 Emergency r Arthur 03 l [facility] 2014-11-03 2014-11-03 [facility] [id number] Memoria 13:30:00 18:40:00 Emergency r Elgin 03 l [facility] 2014-11-03 2014-11-03 [place] [id number] 08:30:00 13:40:00 Joy 03 [facility] 2013-03-07 2013-03-07 Emergency [facility]Fl[facility] [id number] Memoria 14:11:00 20:05:00 [facility] 2013-03-07 2013-03-07 Outpatient 2.16.840. 2.16.840.1. 3 [id number] Memoria 14:11:00 20:05:00 1.211242. 733509.3.61 l 3.615.0.1 5.0.[address] [address] [facility] 2013-03-07 2013-03-07 Emergency nullFlavo [id number] Memoria 14:11:00 20:05:00 [facility] 2013-03-07 2013-03-07 Emergency nullFlavo [id number] Memoria 09:06:00 12:26:00 [facility] 2013-03-07 2013-03-07 Outpatient 2.16.840. 2.16.840.1. 3 [id number] Memoria 09:06:00 12:26:00 1.926356. 473265.3.61 l 3.615.0.1 5.0.[address] [facility] 2013-03-07 2013-03-07 Emergency [facility]Fl[facility] [id number] Memoria 09:06:00 12:26:00 [facility] 2012-04-03 2012-04-04 Emergency nullFlavo [id number] Memoria 21:19:00 03:17:00 [facility] 2012-04-03 2012-04-04 Emergency [facility]Fl[facility] [id number] Memoria 21:19:00 03:17:[address] Results Test Description Test Time Test Comments Results Result Comments Source COMP. METABOLIC PANEL (63759) 2021-10-18 18:06:10 Test Item Value Reference Range Interpretation Comme nts NA (test code = 5045331765) 140 mmol/L 135-145 K (test code = 0045449447) 4.6 mmol/L 3.5-5 CL (test code = 3164417413) 101 mmol/L 98-108 CO2 TOTAL (test code = 6073843188) 27 mmol/L 23-31 AGAP (test code = 8483380104) 2-16 BUN (test code = 1789849657) 7 mg/dL 7-23 GLUCOSE (test code = 4874066128) 87 mg/dL 70-110 CREATININE (test code = 0.63 mg/dL 0.5-1.04 6209508969) TOTAL BILI (test code = 0.6 mg/dL 0.1-1.8 8011563423) CALCIUM (test code = 2625803291) 10.7 mg/dL 8.6-10.6 H T PROTEIN (test code = 4965869734) 9.0 g/dL 6.3-8.2 H ALBUMIN (test code = 7785304799) 4.5 g/dL 3.5-5 ALK PHOS (test code = 9169311947) 100 U/L 34-122 ALTv (test code = 1742-6) 31 U/L 5-35 AST(SGOT) (test code = 0299841578) 34 U/L 13-40 eGFR (test code = 9374603006) mL/min/1.73m2 YANIRA (test code = YANIRA) Association [...] tests). Lab Interpretation (test code = Abnormal 89156-3) [facility] WITH [id number] 17:55:25 Test Item Value Reference Range Interpretation Comments WBC (test code = See_Comment [Automated message] 6690-2) The system [employer] generated this result transmitted ref erence range: 4.30 - 1 1.10 10*3/?L. The re ference range was not u sed to interpret this result as normal/abnor mal. RBC (test code = See_Comment [Automated message] 789-8) The system [employer] generated this result transmitted ref erence range: 3.93 - 5 .25 10*6/?L. The re ference range was not u sed to interpret this result as normal/abnor mal. HGB (test code = 12.8 g/dL 11.6-15 718-7) HCT (test code = 38.7 % 35.7-45.2 4544-3) MCV (test code = 90.8 fL 80.6-95.5 787-2) MCH (test code = 30.0 pg 25.9-32.8 785-6) MCHC (test code = 33.1 g/dL 31.6-35.1 786-4) RDW-SD (test code 43.7 fL 39-49.9 = 88215-1) RDW-CV (test code 13.2 % 12-15.5 = 788-0) PLT (test code = See_Comment [Automated message] 777-3) The system [employer] generated this result transmitted ref erence range: 166 - 35 8 10*3/?L. The re ference range was not u sed to interpret this result as normal/abnor mal. MPV (test code = 10.2 fL 9.5-12.9 31041-4) NRBC/100 WBC (test See_Comment [Automat ed message] code = 9933032410) The syste m which generated this result transmitted ref erence range: 0.0 - 10 .0 /100 WBCs. The refer ence range was not u sed to interpret this result as normal/abnor mal. NRBC x10^3 (test See_Comment [Automated message] code = 2018366228) The syste m which generated this result transmitted ref erence range: 10*3/?L. The reference range was not used to interpr et this result as normal/abnormal . GRAN MAT (NEUT) % 53.2 % (test code = 770-8) IMM GRAN % (test 0.50 % code = 1850222969) LYMPH % (test code 36.0 % = 736-9) MONO % (test code 7.9 % = 5905-5) EOS % (test code = 1.8 % 713-8) BASO % (test code 0.6 % = 706-2) GRAN MAT 3.49 10*3/uL 1.88-7.09 x10^3(ANC) (test code = 7096287081) IMM GRAN x10^3 0.03 10*3/uL 0-0.06 (test code = 6346726226) LYMPH x10^3 (test 2.36 10*3/uL 1.32-3.29 code = 731-0) MONO x10^3 (test 0.52 10*3/uL 0.33-0.92 code = 742-7) EOS x10^3 (test 0.12 10*3/uL 0.03-0.39 code = 711-2) BASO x10^3 (test 0.04 10*3/uL 0.01-0.07 code = 704-7) [facility] [id number] 06:23:52 Test Item Value Reference Range Interpretation Comments TSH, THIRD 0.436 UIU/ML 0.400-4.100 UNLESS OTHERWI SE GENERATION (test INDICATED, ALL TESTING code = 2821) PERFORMED [facility], [facility]. [address] [place] [address] [facility] DIRECTOR: NASH WEEKS M.D. CLIA NUMBER [id number] CAP ACCREDITATION N O. [id number] COMPREHENSIVE METABOLIC [id number] 04:31:16 Test Item Value Reference Range Interpretation Comments GLUCOSE (test code = 92 MG/DL 70-99 2216) BUN (test code = 9 MG/DL 6-20 2207) CREATININE (test 0.75 MG/DL 0.60-1.30 code = 221) eGFR (2020 CKD-EPI) 99 ML/MIN/1.73 >60 (test code = 37176) CALC BUN/CREAT (test 12 RATIO 6-28 code = 2235) SODIUM (test code = 141 MEQ/L 027-282 3383) POTASSIUM (test code 4.2 MEQ/L 3.5-5.4 = 2227) CHLORIDE (test code 101 MEQ/L 95-107 = 2214) CARBON DIOXIDE (test 26 MEQ/L 19-31 code = 2205) CALCIUM (test code = 12.0 MG/DL 8.5-10.5 H 2208) PROTEIN, TOTAL (test 8.7 G/DL 6.1-8.3 H code = 222) ALBUMIN (test code = 4.4 G/DL 3.5-5.2 2200) CALC GLOBULIN (test 4.3 G/DL 1.9-3.7 H code = 2240) CALC A/G RATIO (test 1.0 RATIO 1.0-2.6 code = 223) BILIRUBIN, TOTAL 0.3 MG/DL See_Comment [Automated message] (test code = 2206) The syste m which generated this result transmit kuldip reference range : <=1.2. The refe rence range was not u sed to interpret th is result as normal/abnormal . ALKALINE PHOSPHATASE 92 U/L 40-118 (test code = 2203) AST (test code = 27 U/L 9-40 2217) ALT (test code = 27 U/L 5-40 2218) CBC W/AUTO DIFF WITH [id number] 03:47:00 Test Item Value Reference Range Interpretation Comments WBC (test code = 6.2 K/UL 3.5-11.0 1001) RBC (test code = 4.26 M/UL 3.80-5.40 1002) HEMOGLOBIN (test code 12.5 G/DL 11.5-15.5 = 1003) HEMATOCRIT (test code 38.2 % 34.0-45.0 = 1004) MCV (test code = 89.7 fL 80.0-99.0 1005) MCH (test code = 29.3 PG 25.0-33.0 1006) MCHC (test code = 32.7 G/DL 31.0-36.0 1007) RDW (test code = 13.3 % 11.5-15.0 1038) NEUTROPHILS (test 49.2 % code = 1008) LYMPHOCYTES (test 40.1 % code = 1010) MONOCYTES (test code 7.1 % = 1011) EOSINOPHILS (test 2.9 % code = 1012) BASOPHILS (test code 0.5 % = 1013) IMMATURE GRANULOCYTES 0.2 % (test code = 1036) NUCLEATED RBCS (test 0.0 /100 WBC'S See_Comment [Aut omated code = 1065) message] The sy stem which generated this result transmitted reference range : 0.0. The refere nce range was not u sed to interpret th is result as normal/abnormal . PLATELET COUNT (test 236 K/UL 130-400 code = 1015) ABSOLUTE NEUTROPHILS 3.07 K/UL 1.50-7.50 (test code = 1066) ABSOLUTE LYMPHOCYTES 2.50 K/UL 1.00-4.00 (test code = 1067) ABSOLUTE MONOCYTES 0.44 K/UL 0.20-1.00 (test code = 1068) ABSOLUTE EOSINOPHILS 0.18 K/UL 0.00-0.50 (test code = 1040) ABSOLUTE BASOPHILS 0.03 K/UL 0.00-0.20 (test code = 1069) ABS IMMATURE 0.01 K/UL 0.00-0.10 GRANULOCYTES (test code = 1020) ABS NUCLEATED RBCS 0.00 K/UL 0.00-0.11 (test code = 16297) CBC W/AUTO [id number] 00:00:00 Test Item Value Reference Range Interpretation Comments WBC (test code = 1001) 6.2 K/UL RBC (test code = 1002) 4.26 M/UL HEMOGLOBIN (test code = 1003) 12.5 G/DL HEMATOCRIT (test code = 1004) 38.2 % MCV (test code = 1005) 89.7 fL MCH (test code = 1006) 29.3 PG MCHC (test code = 1007) 32.7 G/DL RDW (test code = 1038) 13.3 % NEUTROPHILS (test code = 1008) 49.2 % LYMPHOCYTES (test code = 1010) 40.1 % MONOCYTES (test code = 1011) 7.1 % EOSINOPHILS (test code = 1012) 2.9 % BASOPHILS (test code = 1013) 0.5 % IMMATURE GRANULOCYTES (test 0.2 % code = 1036) NUCLEATED RBCS (test code = 0.0 /100WBC'S 1065) PLATELET COUNT (test code = 236 K/UL 1015) ABSOLUTE NEUTROPHILS (test code 3.07 K/UL = 1066) ABSOLUTE LYMPHOCYTES (test code 2.50 K/UL = 1067) ABSOLUTE MONOCYTES (test code = 0.44 K/UL 1068) ABSOLUTE EOSINOPHILS (test code 0.18 K/UL = 1040) ABSOLUTE BASOPHILS (test code = 0.03 K/UL 1069) ABS IMMATURE GRANULOCYTES (test 0.01 K/UL code = 1020) ABS NUCLEATED RBCS (test code = 0.00 K/UL 60622) CBC W/AUTO [id number] 00:00:00 Test Item Value Reference Range Interpretation Comments WBC (test code = 1001) 6.2 K/UL RBC (test code = 1002) 4.26 M/UL HEMOGLOBIN (test code = 1003) 12.5 G/DL HEMATOCRIT (test code = 1004) 38.2 % MCV (test code = 1005) 89.7 fL MCH (test code = 1006) 29.3 PG MCHC (test code = 1007) 32.7 G/DL RDW (test code = 1038) 13.3 % NEUTROPHILS (test code = 1008) 49.2 % LYMPHOCYTES (test code = 1010) 40.1 % MONOCYTES (test code = 1011) 7.1 % EOSINOPHILS (test code = 1012) 2.9 % BASOPHILS (test code = 1013) 0.5 % IMMATURE GRANULOCYTES (test 0.2 % code = 1036) NUCLEATED RBCS (test code = 0.0 /100WBC'S 1065) PLATELET COUNT (test code = 236 K/UL 1015) ABSOLUTE NEUTROPHILS (test code 3.07 K/UL = 1066) ABSOLUTE LYMPHOCYTES (test code 2.50 K/UL = 1067) ABSOLUTE MONOCYTES (test code = 0.44 K/UL 1068) ABSOLUTE EOSINOPHILS (test code 0.18 K/UL = 1040) ABSOLUTE BASOPHILS (test code = 0.03 K/UL 1069) ABS IMMATURE GRANULOCYTES (test 0.01 K/UL code = 1020) ABS NUCLEATED RBCS (test code = 0.00 K/UL 73893) COMPREHENSIVE METABOLIC [id number] 00:00:00 Test Item Value Reference Range Interpretation Comments GLUCOSE (test code = 2217) 92 MG/DL BUN (test code = 2208) 9 MG/DL CREATININE (test code = 2214) 0.75 MG/DL eGFR (2020 CKD-EPI) (test code 99 ML/MIN/1.73 = 34663) CALC BUN/CREAT (test code = 12 RATIO 2235) SODIUM (test code = 2231) 141 MEQ/L POTASSIUM (test code = 2228) 4.2 MEQ/L CHLORIDE (test code = 2215) 101 MEQ/L CARBON DIOXIDE (test code = 26 MEQ/L 2205) CALCIUM (test code = 2209) 12.0 MG/DL PROTEIN, TOTAL (test code = 8.7 G/DL 2228) ALBUMIN (test code = 2201) 4.4 G/DL CALC GLOBULIN (test code = 4.3 G/DL 2240) CALC A/G RATIO (test code = 1.0 RATIO 2233) BILIRUBIN, TOTAL (test code = 0.3 MG/DL 2206) ALKALINE PHOSPHATASE (test 92 U/L code = 2204) AST (test code = 2218) 27 U/L ALT (test code = 2219) 27 U/L [id number] 00:00:00 Test Item Value Reference Range Interpretation Comments TSH, THIRD GENERATION (test code 0.436 UIU/ML = 2821) [id number] 00:00:00 Test Item Value Reference Range Interpretation Comments TSH, THIRD GENERATION (test code 0.436 UIU/ML = 2821) CBC W/AUTO [id number] 00:00:00 Test Item Value Reference Range Interpretation Comments WBC (test code = 1001) 6.2 K/UL RBC (test code = 1002) 4.26 M/UL HEMOGLOBIN (test code = 1003) 12.5 G/DL HEMATOCRIT (test code = 1004) 38.2 % MCV (test code = 1005) 89.7 fL MCH (test code = 1006) 29.3 PG MCHC (test code = 1007) 32.7 G/DL RDW (test code = 1038) 13.3 % NEUTROPHILS (test code = 1008) 49.2 % LYMPHOCYTES (test code = 1010) 40.1 % MONOCYTES (test code = 1011) 7.1 % EOSINOPHILS (test code = 1012) 2.9 % BASOPHILS (test code = 1013) 0.5 % IMMATURE GRANULOCYTES (test 0.2 % code = 1036) NUCLEATED RBCS (test code = 0.0 /100WBC'S 1065) PLATELET COUNT (test code = 236 K/UL 1015) ABSOLUTE NEUTROPHILS (test code 3.07 K/UL = 1066) ABSOLUTE LYMPHOCYTES (test code 2.50 K/UL = 1067) ABSOLUTE MONOCYTES (test code = 0.44 K/UL 1068) ABSOLUTE EOSINOPHILS (test code 0.18 K/UL = 1040) ABSOLUTE BASOPHILS (test code = 0.03 K/UL 1069) ABS IMMATURE GRANULOCYTES (test 0.01 K/UL code = 1020) ABS NUCLEATED RBCS (test code = 0.00 K/UL 65508) CBC W/AUTO [id number] 00:00:00 Test Item Value Reference Range Interpretation Comments WBC (test code = 1001) 6.2 K/UL RBC (test code = 1002) 4.26 M/UL HEMOGLOBIN (test code = 1003) 12.5 G/DL HEMATOCRIT (test code = 1004) 38.2 % MCV (test code = 1005) 89.7 fL MCH (test code = 1006) 29.3 PG MCHC (test code = 1007) 32.7 G/DL RDW (test code = 1038) 13.3 % NEUTROPHILS (test code = 1008) 49.2 % LYMPHOCYTES (test code = 1010) 40.1 % MONOCYTES (test code = 1011) 7.1 % EOSINOPHILS (test code = 1012) 2.9 % BASOPHILS (test code = 1013) 0.5 % IMMATURE GRANULOCYTES (test 0.2 % code = 1036) NUCLEATED RBCS (test code = 0.0 /100WBC'S 1065) PLATELET COUNT (test code = 236 K/UL 1015) ABSOLUTE NEUTROPHILS (test code 3.07 K/UL = 1066) ABSOLUTE LYMPHOCYTES (test code 2.50 K/UL = 1067) ABSOLUTE MONOCYTES (test code = 0.44 K/UL 1068) ABSOLUTE EOSINOPHILS (test code 0.18 K/UL = 1040) ABSOLUTE BASOPHILS (test code = 0.03 K/UL 1069) ABS IMMATURE GRANULOCYTES (test 0.01 K/UL code = 1020) ABS NUCLEATED RBCS (test code = 0.00 K/UL 30588) CBC W/AUTO [id number] 00:00:00 Test Item Value Reference Range Interpretation Comments WBC (test code = 1001) 6.2 K/UL RBC (test code = 1002) 4.26 M/UL HEMOGLOBIN (test code = 1003) 12.5 G/DL HEMATOCRIT (test code = 1004) 38.2 % MCV (test code = 1005) 89.7 fL MCH (test code = 1006) 29.3 PG MCHC (test code = 1007) 32.7 G/DL RDW (test code = 1038) 13.3 % NEUTROPHILS (test code = 1008) 49.2 % LYMPHOCYTES (test code = 1010) 40.1 % MONOCYTES (test code = 1011) 7.1 % EOSINOPHILS (test code = 1012) 2.9 % BASOPHILS (test code = 1013) 0.5 % IMMATURE GRANULOCYTES (test 0.2 % code = 1036) NUCLEATED RBCS (test code = 0.0 /100WBC'S 1065) PLATELET COUNT (test code = 236 K/UL 1015) ABSOLUTE NEUTROPHILS (test code 3.07 K/UL = 1066) ABSOLUTE LYMPHOCYTES (test code 2.50 K/UL = 1067) ABSOLUTE MONOCYTES (test code = 0.44 K/UL 1068) ABSOLUTE EOSINOPHILS (test code 0.18 K/UL = 1040) ABSOLUTE BASOPHILS (test code = 0.03 K/UL 1069) ABS IMMATURE GRANULOCYTES (test 0.01 K/UL code = 1020) ABS NUCLEATED RBCS (test code = 0.00 K/UL 90869) COMPREHENSIVE METABOLIC [id number] 00:00:00 Test Item Value Reference Range Interpretation Comments GLUCOSE (test code = 2217) 92 MG/DL BUN (test code = 2208) 9 MG/DL CREATININE (test code = 2214) 0.75 MG/DL eGFR (2020 CKD-EPI) (test code 99 ML/MIN/1.73 = 72951) CALC BUN/CREAT (test code = 12 RATIO 2235) SODIUM (test code = 2231) 141 MEQ/L POTASSIUM (test code = 2228) 4.2 MEQ/L CHLORIDE (test code = 2215) 101 MEQ/L CARBON DIOXIDE (test code = 26 MEQ/L 2206) CALCIUM (test code = 2209) 12.0 MG/DL PROTEIN, TOTAL (test code = 8.7 G/DL 222) ALBUMIN (test code = 2201) 4.4 G/DL CALC GLOBULIN (test code = 4.3 G/DL 2240) CALC A/G RATIO (test code = 1.0 RATIO 2234) BILIRUBIN, TOTAL (test code = 0.3 MG/DL 220) ALKALINE PHOSPHATASE (test 92 U/L code = 2204) AST (test code = 2218) 27 U/L ALT (test code = 2219) 27 U/L COMPREHENSIVE METABOLIC [id number] 00:00:00 Test Item Value Reference Range Interpretation Comments GLUCOSE (test code = 2217) 92 MG/DL BUN (test code = 2208) 9 MG/DL CREATININE (test code = 2214) 0.75 MG/DL eGFR (2020 CKD-EPI) (test code 99 ML/MIN/1.73 = 00165) CALC BUN/CREAT (test code = 12 RATIO 2235) SODIUM (test code = 2231) 141 MEQ/L POTASSIUM (test code = 2228) 4.2 MEQ/L CHLORIDE (test code = 2215) 101 MEQ/L CARBON DIOXIDE (test code = 26 MEQ/L 2206) CALCIUM (test code = 2209) 12.0 MG/DL PROTEIN, TOTAL (test code = 8.7 G/DL 2228) ALBUMIN (test code = 2201) 4.4 G/DL CALC GLOBULIN (test code = 4.3 G/DL 2240) CALC A/G RATIO (test code = 1.0 RATIO 2234) BILIRUBIN, TOTAL (test code = 0.3 MG/DL 2206) ALKALINE PHOSPHATASE (test 92 U/L code = 2204) AST (test code = 2218) 27 U/L ALT (test code = 2219) 27 U/L [id number] 00:00:00 Test Item Value Reference Range Interpretation Comments TSH, THIRD GENERATION (test code 0.436 UIU/ML = 2821) [id number] 00:00:00 Test Item Value Reference Range Interpretation Comments TSH, THIRD GENERATION (test code 0.436 UIU/ML = 2821) [id number] 00:00:00 Test Item Value Reference Range Interpretation Comments TSH, THIRD GENERATION (test code 0.436 UIU/ML = 2821) CBC W/AUTO [id number] 00:00:00 Test Item Value Reference Range Interpretation Comments WBC (test code = 1001) 6.2 K/UL RBC (test code = 1002) 4.26 M/UL HEMOGLOBIN (test code = 1003) 12.5 G/DL HEMATOCRIT (test code = 1004) 38.2 % MCV (test code = 1005) 89.7 fL MCH (test code = 1006) 29.3 PG MCHC (test code = 1007) 32.7 G/DL RDW (test code = 1038) 13.3 % NEUTROPHILS (test code = 1008) 49.2 % LYMPHOCYTES (test code = 1010) 40.1 % MONOCYTES (test code = 1011) 7.1 % EOSINOPHILS (test code = 1012) 2.9 % BASOPHILS (test code = 1013) 0.5 % IMMATURE GRANULOCYTES (test 0.2 % code = 1036) NUCLEATED RBCS (test code = 0.0 /100WBC'S 1065) PLATELET COUNT (test code = 236 K/UL 1015) ABSOLUTE NEUTROPHILS (test code 3.07 K/UL = 1066) ABSOLUTE LYMPHOCYTES (test code 2.50 K/UL = 1067) ABSOLUTE MONOCYTES (test code = 0.44 K/UL 1068) ABSOLUTE EOSINOPHILS (test code 0.18 K/UL = 1040) ABSOLUTE BASOPHILS (test code = 0.03 K/UL 1069) ABS IMMATURE GRANULOCYTES (test 0.01 K/UL code = 1020) ABS NUCLEATED RBCS (test code = 0.00 K/UL 97230) CBC W/AUTO [id number] 00:00:00 Test Item Value Reference Range Interpretation Comments WBC (test code = 1001) 6.2 K/UL RBC (test code = 1002) 4.26 M/UL HEMOGLOBIN (test code = 1003) 12.5 G/DL HEMATOCRIT (test code = 1004) 38.2 % MCV (test code = 1005) 89.7 fL MCH (test code = 1006) 29.3 PG MCHC (test code = 1007) 32.7 G/DL RDW (test code = 1038) 13.3 % NEUTROPHILS (test code = 1008) 49.2 % LYMPHOCYTES (test code = 1010) 40.1 % MONOCYTES (test code = 1011) 7.1 % EOSINOPHILS (test code = 1012) 2.9 % BASOPHILS (test code = 1013) 0.5 % IMMATURE GRANULOCYTES (test 0.2 % code = 1036) NUCLEATED RBCS (test code = 0.0 /100WBC'S 1065) PLATELET COUNT (test code = 236 K/UL 1015) ABSOLUTE NEUTROPHILS (test code 3.07 K/UL = 1066) ABSOLUTE LYMPHOCYTES (test code 2.50 K/UL = 1067) ABSOLUTE MONOCYTES (test code = 0.44 K/UL 1068) ABSOLUTE EOSINOPHILS (test code 0.18 K/UL = 1040) ABSOLUTE BASOPHILS (test code = 0.03 K/UL 1069) ABS IMMATURE GRANULOCYTES (test 0.01 K/UL code = 1020) ABS NUCLEATED RBCS (test code = 0.00 K/UL 48104) CBC W/AUTO [id number] 00:00:00 Test Item Value Reference Range Interpretation Comments WBC (test code = 1001) 6.2 K/UL RBC (test code = 1002) 4.26 M/UL HEMOGLOBIN (test code = 1003) 12.5 G/DL HEMATOCRIT (test code = 1004) 38.2 % MCV (test code = 1005) 89.7 fL MCH (test code = 1006) 29.3 PG MCHC (test code = 1007) 32.7 G/DL RDW (test code = 1038) 13.3 % NEUTROPHILS (test code = 1008) 49.2 % LYMPHOCYTES (test code = 1010) 40.1 % MONOCYTES (test code = 1011) 7.1 % EOSINOPHILS (test code = 1012) 2.9 % BASOPHILS (test code = 1013) 0.5 % IMMATURE GRANULOCYTES (test 0.2 % code = 1036) NUCLEATED RBCS (test code = 0.0 /100WBC'S 1065) PLATELET COUNT (test code = 236 K/UL 1015) ABSOLUTE NEUTROPHILS (test code 3.07 K/UL = 1066) ABSOLUTE LYMPHOCYTES (test code 2.50 K/UL = 1067) ABSOLUTE MONOCYTES (test code = 0.44 K/UL 1068) ABSOLUTE EOSINOPHILS (test code 0.18 K/UL = 1040) ABSOLUTE BASOPHILS (test code = 0.03 K/UL 1069) ABS IMMATURE GRANULOCYTES (test 0.01 K/UL code = 1020) ABS NUCLEATED RBCS (test code = 0.00 K/UL 53098) COMPREHENSIVE METABOLIC [id number] 00:00:00 Test Item Value Reference Range Interpretation Comments GLUCOSE (test code = 2217) 92 MG/DL BUN (test code = 2208) 9 MG/DL CREATININE (test code = 2214) 0.75 MG/DL eGFR (2020 CKD-EPI) (test code 99 ML/MIN/1.73 = 24975) CALC BUN/CREAT (test code = 12 RATIO 2235) SODIUM (test code = 2231) 141 MEQ/L POTASSIUM (test code = 2228) 4.2 MEQ/L CHLORIDE (test code = 2215) 101 MEQ/L CARBON DIOXIDE (test code = 26 MEQ/L 2205) CALCIUM (test code = 2209) 12.0 MG/DL PROTEIN, TOTAL (test code = 8.7 G/DL 2228) ALBUMIN (test code = 2201) 4.4 G/DL CALC GLOBULIN (test code = 4.3 G/DL 2240) CALC A/G RATIO (test code = 1.0 RATIO 2234) BILIRUBIN, TOTAL (test code = 0.3 MG/DL 220) ALKALINE PHOSPHATASE (test 92 U/L code = 2204) AST (test code = 2218) 27 U/L ALT (test code = 2219) 27 U/L COMPREHENSIVE METABOLIC [id number] 00:00:00 Test Item Value Reference Range Interpretation Comments GLUCOSE (test code = 2217) 92 MG/DL BUN (test code = 2208) 9 MG/DL CREATININE (test code = 2214) 0.75 MG/DL eGFR (2020 CKD-EPI) (test code 99 ML/MIN/1.73 = 21803) CALC BUN/CREAT (test code = 12 RATIO 2235) SODIUM (test code = 2231) 141 MEQ/L POTASSIUM (test code = 2228) 4.2 MEQ/L CHLORIDE (test code = 2215) 101 MEQ/L CARBON DIOXIDE (test code = 26 MEQ/L 2205) CALCIUM (test code = 2209) 12.0 MG/DL PROTEIN, TOTAL (test code = 8.7 G/DL 2228) ALBUMIN (test code = 2201) 4.4 G/DL CALC GLOBULIN (test code = 4.3 G/DL 2240) CALC A/G RATIO (test code = 1.0 RATIO 2233) BILIRUBIN, TOTAL (test code = 0.3 MG/DL 2206) ALKALINE PHOSPHATASE (test 92 U/L code = 2204) AST (test code = 2218) 27 U/L ALT (test code = 2219) 27 U/L [id number] 00:00:00 Test Item Value Reference Range Interpretation Comments TSH, THIRD GENERATION (test code 0.436 UIU/ML = 2821) [id number] 00:00:00 Test Item Value Reference Range Interpretation Comments TSH, THIRD GENERATION (test code 0.436 UIU/ML = 2821) [id number] 00:00:00 Test Item Value Reference Range Interpretation Comments TSH, THIRD GENERATION (test code 0.436 UIU/ML = 2821) CULTURE, [id number] 09:02:35SPECIMEN NUMBER: [id number] CULTURE, URINE SPECIMEN NUMBER: [id number] SPECIMEN COMMENT: URINE SOURCE:URINE REPORT STATUS: FINAL FINAL REPORT: 10/02/2021 10-50,000 CFU/ML UROGENITAL [place] PRESENT NO COMM ON PATHOGENS UNLESS OTHERWISE INDICATED, ALL TESTING [facility] [address] [place] [address] SCHOOL COUNSELLOR: NASH WEEKS M.D. CLIA NUMBER [id number] [place]. [id number] CULTURE, [id number] 00:00:00 Test Item Value Reference Range Interpretation Comments CULTURE, URINE (test SPECIMEN NUMBER: code = 62506) [id number] CULTURE, [id number] 00:00:00 Test Item Value Reference Range Interpretation Comments CULTURE, URINE (test SPECIMEN NUMBER: code = 98835) [id number] CULTURE, [id number] 00:00:00 Test Item Value Reference Range Interpretation Comments CULTURE, URINE (test SPECIMEN NUMBER: code = 39709) [id number] CULTURE, [id number] 00:00:00 Test Item Value Reference Range Interpretation Comments CULTURE, URINE (test SPECIMEN NUMBER: code = 10339) [id number] CULTURE, [id number] 00:00:00 Test Item Value Reference Range Interpretation Comments CULTURE, URINE (test SPECIMEN NUMBER: code = 20481) [id number] COMP. METABOLIC PANEL (34308)2021-09-24 17:17:37 Test Item Value Reference Range Interpretation Comments NA (test code = 141 mmol/L 135-145 5275904359) K (test code = 4.2 mmol/L 3.5-5.0 9494358714) CL (test code = 100 mmol/L 98-108 9572468621) CO2 TOTAL (test code = 28 mmol/L 23-31 2407168301) AGAP (test code = 2-16 4643520123) BUN (test code = 9 mg/dL 7-23 9602921573) GLUCOSE (test code = 106 mg/dL 70-110 2840599771) CREATININE (test code = 0.72 mg/dL 0.50-1.04 1044488297) TOTAL BILI (test code = 0.6 mg/dL 0.1-1.3 2016370627) CALCIUM (test code = 11.7 mg/dL 8.6-10.6 H 8302947586) T PROTEIN (test code = 9.3 g/dL 6.3-8.2 H 3688175285) ALBUMIN (test code = 4.5 g/dL 3.5-5.0 5061738670) ALK PHOS (test code = 100 U/L 34-122 0463177350) ALTv (test code = 26 U/L 5-35 1742-6) AST(SGOT) (test code = 29 U/L 13-40 9244215075) eGFR (test code = mL/min/1.73m2 1463771290) YANIRA (test code = YANIRA) Association of [...] tests). Lab Interpretation Abnormal (test code = 15611-8) [facility] 17:17:37 Test Item Value Reference Range Interpretation Comments LIPASE (test code = 6074995156) 139 U/L 0-220 Lab Interpretation (test code = Normal 75476-4) [facility] THRMPLAS [id number] 17:17:17 Test Item Value Reference Range Interpretation Comments APTT Patient (test See_Comment [Automat ed code = 3173-2) message] The system which generated this result transmitted reference range : 23 - 38 Seconds . The reference range was not used to interpr et this result as normal/abnormal . YANIRA (test code = YANIRA) The [facility] patient population mean normal value for aPTT is 30 seconds. Lab Interpretation Normal (test code = 43980-4) [facility] TexasPROT[facility]OM[facility] / [id number] 17:15:16 Test Item Value Reference Range Interpretation Comments [...] tions. Lab Interpretation (test Normal code = 76188-6) [facility] WITH [id number] 17:04:54 Test Item Value Reference Range Interpretation Comments WBC (test code = See_Comment [Automated message] 2790-2) The system [employer] generated this result transmitted ref erence range: 4.30 - 1 1.10 10*3/?L. The re ference range was not u sed to interpret this result as normal/abnor mal. RBC (test code = See_Comment [Automated message] 909-8) The system [employer] generated this result transmitted ref erence range: 3.93 - 5 .25 10*6/?L. The re ference range was not u sed to interpret this result as normal/abnor mal. HGB (test code = 13.4 g/dL 11.6-15.0 718-7) HCT (test code = 39.9 % 35.7-45.2 4544-3) MCV (test code = 89.1 fL 80.6-95.5 787-2) MCH (test code = 29.9 pg 25.9-32.8 785-6) MCHC (test code = 33.6 g/dL 31.6-35.1 786-4) RDW-SD (test code 41.5 fL 39.0-49.9 = 89529-9) RDW-CV (test code 12.8 % 12.0-15.5 = 788-0) PLT (test code = See_Comment [Automated message] 717-3) The system [employer] generated this result transmitted ref erence range: 166 - 35 8 10*3/?L. The re ference range was not u sed to interpret this result as normal/abnor mal. MPV (test code = 10.0 fL 9.5-12.9 35061-5) NRBC/100 WBC (test See_Comment [Automat ed message] code = 1011192471) The [employer] which generated this result transmitted ref erence range: 0.0 - 10 .0 /100 WBCs. The refer ence range was not u sed to interpret this result as normal/abnor mal. NRBC x10^3 (test <0.01 See_Comment [Automated message] code = 2139825719) The syste m which generated this result transmitted ref erence range: 10*3/?L. The reference range was not used to interpr et this result as normal/abnormal . GRAN MAT (NEUT) % 52.2 % (test code = 770-8) IMM GRAN % (test 0.30 % code = 4778638717) LYMPH % (test code 37.7 % = 736-9) MONO % (test code 7.3 % = 5905-5) EOS % (test code = 2.2 % 713-8) BASO % (test code 0.3 % = 706-2) GRAN MAT 3.14 10*3/uL 1.88-7.09 x10^3(ANC) (test code = 0976163629) IMM GRAN x10^3 <0.03 0.00-0.06 (test code = 0235127278) LYMPH x10^3 (test 2.27 10*3/uL 1.32-3.29 code = 731-0) MONO x10^3 (test 0.44 10*3/uL 0.33-0.92 code = 742-7) EOS x10^3 (test 0.13 10*3/uL 0.03-0.39 code = 711-2) BASO x10^3 (test <0.03 0.01-0.07 code = 704-7) [facility] PAN[facility], [id number] 03:32:34 Test Item Value Reference Range Interpretation Comments HEPATITIS A IgM (test NON-REACTIVE NON-REACTIVE code = 74844) HEPATITIS B CORE IgM NON-REACTIVE NON-REACTIVE (test code = 4644) HEPATITIS B SURF AG NON-REACTIVE NON-REACTIVE (test code = 2739) HEPATITIS C ANTIBODY NON-REACTIVE NON-REACTIVE (test code = 4675) INTERPRETATION (NOTE) Hepatitis A HEPATITIS A: (test code sero logy shows no = 2552) evidence of acu te hepatitis A. INTERPRETATION (NOTE) Hepatitis B HEPATITIS B: (test code sero logy shows no = 59021) evidence of acu te hepatitis B and no indication of exposure to hepatitis B vir us in the previous oly eight months. INTERPRETATION (NOTE) Hepatitis C HEPATITIS C: (test code sero logy shows no = 06405) evidence of exposure to hepatitisC viru s at this time. I t can take up to 12 months after exposure tothe hepatitis C vir us for antibodies to become detectab le in the blood in certain patient s. LIPID [id number] 01:28:17 Test Item Value Reference Range Interpretation Comments CHOLESTEROL (test 213 MG/DL <200 H code = 2210) TRIGLYCERIDES (test 200 MG/DL <150 H code = 2232) HDL CHOLESTEROL (test 43 MG/DL >39 code = 2220) CALC LDL CHOL (test 136 MG/DL <100 H NOTE: C ALCULATED LDL code = 2237) IS BASED ON LAURA-FERREIRA METHOD WHICHINCLUDES ADJUSTABLE TRIGLYCERIDE:VL DL CHOLESTEROL RAT IO.THIS FACTOR VARIES B Y MEASURED TRIGLY CERIDE AND NON-HDLCHOL ESTEROL CONCENTRATIONS WITH INCREASED CALCU LATED LDL SEENIN HIGH ER TRIGLYCERIDE OR LOWER NON-HDL SPECIME NS. FOR MOREINFORMATION , SEE CLIENT ANNOUNCE MENT AT [email or web address] RISK RATIO LDL/HDL 3.16 RATIO <3.22 (test code = 2238) COMPREHENSIVE METABOLIC [id number] 01:28:17 Test Item Value Reference Range Interpretation Comments GLUCOSE (test code = 68 MG/DL 70-99 L 2216) BUN (test code = 7 MG/DL 09-12) CREATININE (test 0.70 MG/DL 0.60-1.30 code = 2214) eGFR (2020 CKD-EPI) 108 >60 (test code = 10736) ML/MIN/1.73 CALC BUN/CREAT (test 10 RATIO - code = 2235) SODIUM (test code = 138 MEQ/L 621-673 4413) POTASSIUM (test code 4.0 MEQ/L 3.5-5.4 = 2227) CHLORIDE (test code 98 MEQ/L 95-107 = 2214) CARBON DIOXIDE (test 24 MEQ/L 19-31 code = 220) CALCIUM (test code = 10.8 MG/DL 8.5-10.5 H 2208) PROTEIN, TOTAL (test 8.5 G/DL 6.1-8.3 H code = 222) ALBUMIN (test code = 4.1 G/DL 3.5-5.2 2200) CALC GLOBULIN (test 4.4 G/DL 1.9-3.7 H code = 2240) CALC A/G RATIO (test 0.9 RATIO 1.0-2.6 L code = 2234) BILIRUBIN, TOTAL 0.2 MG/DL See_Comment [Automated message] (test code = 220) The syste m which generated this result transmit kuldip reference range : <=1.2. The refe rence range was not u sed to interpret th is result as normal/abnormal . ALKALINE PHOSPHATASE 117 U/L 40-118 (test code = 2203) AST (test code = 16 U/L 9-40 2217) ALT (test code = 16 U/L 5-40 2218) TSH, THIRD [id number] 00:54:02 Test Item Value Reference Range Interpretation Comments TSH, THIRD 0.553 UIU/ML 0.400-4.100 UNLESS OTHERWI SE GENERATION (test INDICATED, ALL TESTING code = 2821) PERFORMED [facility], [facility]. [address] [place] [id number] [place] [address] DIRECTOR: NASH WEEKS M.D. CLIA NUMBER [id number] CAP ACCREDITATION N O. [id number] LIPID [id number] 00:00:00 Test Item Value Reference Range Interpretation Comments CHOLESTEROL (test code = 2210) 213 MG/DL TRIGLYCERIDES (test code = 2232) 200 MG/DL HDL CHOLESTEROL (test code = 2220) 43 MG/DL CALC LDL CHOL (test code = 2237) 136 MG/DL RISK RATIO LDL/HDL (test code = 3.16 RATIO 2238) COMPREHENSIVE METABOLIC [id number] 00:00:00 Test Item Value Reference Range Interpretation Comments GLUCOSE (test code = 2217) 68 MG/DL BUN (test code = 2208) 7 MG/DL CREATININE (test code = 2214) 0.70 MG/DL eGFR (2020 CKD-EPI) (test 108 ML/MIN/1.73 code = 81365) CALC BUN/CREAT (test code = 10 RATIO 2235) SODIUM (test code = 2231) 138 MEQ/L POTASSIUM (test code = 2228) 4.0 MEQ/L CHLORIDE (test code = 2215) 98 MEQ/L CARBON DIOXIDE (test code = 24 MEQ/L 2205) CALCIUM (test code = 2209) 10.8 MG/DL PROTEIN, TOTAL (test code = 8.5 G/DL 2228) ALBUMIN (test code = 2201) 4.1 G/DL CALC GLOBULIN (test code = 4.4 G/DL 2239) CALC A/G RATIO (test code = 0.9 RATIO 2233) BILIRUBIN, TOTAL (test code = 0.2 MG/DL 2206) ALKALINE PHOSPHATASE (test 117 U/L code = 2204) AST (test code = 2218) 16 U/L ALT (test code = 2219) 16 U/L ACUTE HEPATITIS [id number] 00:00:00 Test Item Value Reference Range Interpretation Comments HEPATITIS A IgM (test code = NON-REACTIVE 57653) HEPATITIS B CORE IgM (test code NON-REACTIVE = 4642) HEPATITIS B SURF AG (test code = NON-REACTIVE 1561) HEPATITIS C ANTIBODY (test code NON-REACTIVE = 4628) INTERPRETATION HEPATITIS A: (NOTE) (test code = 2552) INTERPRETATION HEPATITIS B: (NOTE) (test code = 17966) INTERPRETATION HEPATITIS C: (NOTE) (test code = 71514) [id number] 00:00:00 Test Item Value Reference Range Interpretation Comments TSH, THIRD GENERATION (test code 0.553 UIU/ML = 2821) [id number] 00:00:00 Test Item Value Reference Range Interpretation Comments TSH, THIRD GENERATION (test code 0.553 UIU/ML = 2821) LIPID [id number] 00:00:00 Test Item Value Reference Range Interpretation Comments CHOLESTEROL (test code = 2210) 213 MG/DL TRIGLYCERIDES (test code = 2232) 200 MG/DL HDL CHOLESTEROL (test code = 2220) 43 MG/DL CALC LDL CHOL (test code = 2237) 136 MG/DL RISK RATIO LDL/HDL (test code = 3.16 RATIO 2238) COMPREHENSIVE METABOLIC [id number] 00:00:00 Test Item Value Reference Range Interpretation Comments GLUCOSE (test code = 2217) 68 MG/DL BUN (test code = 2208) 7 MG/DL CREATININE (test code = 2214) 0.70 MG/DL eGFR (2020 CKD-EPI) (test 108 ML/MIN/1.73 code = 22195) CALC BUN/CREAT (test code = 10 RATIO 2234) SODIUM (test code = 2231) 138 MEQ/L POTASSIUM (test code = 2228) 4.0 MEQ/L CHLORIDE (test code = 2215) 98 MEQ/L CARBON DIOXIDE (test code = 24 MEQ/L 2205) CALCIUM (test code = 220) 10.8 MG/DL PROTEIN, TOTAL (test code = 8.5 G/DL 2228) ALBUMIN (test code = 220) 4.1 G/DL CALC GLOBULIN (test code = 4.4 G/DL 2239) CALC A/G RATIO (test code = 0.9 RATIO 2233) BILIRUBIN, TOTAL (test code = 0.2 MG/DL 2206) ALKALINE PHOSPHATASE (test 117 U/L code = 220) AST (test code = 2218) 16 U/L ALT (test code = 2219) 16 U/L ACUTE HEPATITIS [id number] 00:00:00 Test Item Value Reference Range Interpretation Comments HEPATITIS A IgM (test code = NON-REACTIVE 17333) HEPATITIS B CORE IgM (test code NON-REACTIVE = 1986) HEPATITIS B SURF AG (test code = NON-REACTIVE 2880) HEPATITIS C ANTIBODY (test code NON-REACTIVE = 4698) INTERPRETATION HEPATITIS A: (NOTE) (test code = 2552) INTERPRETATION HEPATITIS B: (NOTE) (test code = 86220) INTERPRETATION HEPATITIS C: (NOTE) (test code = 89425) [id number] 00:00:00 Test Item Value Reference Range Interpretation Comments TSH, THIRD GENERATION (test code 0.553 UIU/ML = 2821) [id number] 00:00:00 Test Item Value Reference Range Interpretation Comments TSH, THIRD GENERATION (test code 0.553 UIU/ML = 2821) LIPID [id number] 00:00:00 Test Item Value Reference Range Interpretation Comments CHOLESTEROL (test code = 2210) 213 MG/DL TRIGLYCERIDES (test code = 2232) 200 MG/DL HDL CHOLESTEROL (test code = 2220) 43 MG/DL CALC LDL CHOL (test code = 2237) 136 MG/DL RISK RATIO LDL/HDL (test code = 3.16 RATIO 2238) LIPID [id number] 00:00:00 Test Item Value Reference Range Interpretation Comments CHOLESTEROL (test code = 2210) 213 MG/DL TRIGLYCERIDES (test code = 2232) 200 MG/DL HDL CHOLESTEROL (test code = 2220) 43 MG/DL CALC LDL CHOL (test code = 2237) 136 MG/DL RISK RATIO LDL/HDL (test code = 3.16 RATIO 2238) LIPID [id number] 00:00:00 Test Item Value Reference Range Interpretation Comments CHOLESTEROL (test code = 2210) 213 MG/DL TRIGLYCERIDES (test code = 2232) 200 MG/DL HDL CHOLESTEROL (test code = 2220) 43 MG/DL CALC LDL CHOL (test code = 2237) 136 MG/DL RISK RATIO LDL/HDL (test code = 3.16 RATIO 2238) COMPREHENSIVE METABOLIC [id number] 00:00:00 Test Item Value Reference Range Interpretation Comments GLUCOSE (test code = 2217) 68 MG/DL BUN (test code = 2208) 7 MG/DL CREATININE (test code = 2214) 0.70 MG/DL eGFR (2020 CKD-EPI) (test 108 ML/MIN/1.73 code = 42804) CALC BUN/CREAT (test code = 10 RATIO 2235) SODIUM (test code = 2231) 138 MEQ/L POTASSIUM (test code = 2228) 4.0 MEQ/L CHLORIDE (test code = 2215) 98 MEQ/L CARBON DIOXIDE (test code = 24 MEQ/L 2205) CALCIUM (test code = 2209) 10.8 MG/DL PROTEIN, TOTAL (test code = 8.5 G/DL 2228) ALBUMIN (test code = 2201) 4.1 G/DL CALC GLOBULIN (test code = 4.4 G/DL 2240) CALC A/G RATIO (test code = 0.9 RATIO 2234) BILIRUBIN, TOTAL (test code = 0.2 MG/DL 2206) ALKALINE PHOSPHATASE (test 117 U/L code = 2204) AST (test code = 2218) 16 U/L ALT (test code = 2219) 16 U/L COMPREHENSIVE METABOLIC [id number] 00:00:00 Test Item Value Reference Range Interpretation Comments GLUCOSE (test code = 2217) 68 MG/DL BUN (test code = 2208) 7 MG/DL CREATININE (test code = 2214) 0.70 MG/DL eGFR (2020 CKD-EPI) (test 108 ML/MIN/1.73 code = 74514) CALC BUN/CREAT (test code = 10 RATIO 2235) SODIUM (test code = 2231) 138 MEQ/L POTASSIUM (test code = 2228) 4.0 MEQ/L CHLORIDE (test code = 2215) 98 MEQ/L CARBON DIOXIDE (test code = 24 MEQ/L 2205) CALCIUM (test code = 2209) 10.8 MG/DL PROTEIN, TOTAL (test code = 8.5 G/DL 2228) ALBUMIN (test code = 2201) 4.1 G/DL CALC GLOBULIN (test code = 4.4 G/DL 2239) CALC A/G RATIO (test code = 0.9 RATIO 223) BILIRUBIN, TOTAL (test code = 0.2 MG/DL 2206) ALKALINE PHOSPHATASE (test 117 U/L code = 220) AST (test code = 2218) 16 U/L ALT (test code = 2219) 16 U/L COMPREHENSIVE METABOLIC [id number] 00:00:00 Test Item Value Reference Range Interpretation Comments GLUCOSE (test code = 2217) 68 MG/DL BUN (test code = 2208) 7 MG/DL CREATININE (test code = 2214) 0.70 MG/DL eGFR (2020 CKD-EPI) (test 108 ML/MIN/1.73 code = 76512) CALC BUN/CREAT (test code = 10 RATIO 2235) SODIUM (test code = 2231) 138 MEQ/L POTASSIUM (test code = 2228) 4.0 MEQ/L CHLORIDE (test code = 2215) 98 MEQ/L CARBON DIOXIDE (test code = 24 MEQ/L 2205) CALCIUM (test code = 2209) 10.8 MG/DL PROTEIN, TOTAL (test code = 8.5 G/DL 2228) ALBUMIN (test code = 2201) 4.1 G/DL CALC GLOBULIN (test code = 4.4 G/DL 2239) CALC A/G RATIO (test code = 0.9 RATIO 2234) BILIRUBIN, TOTAL (test code = 0.2 MG/DL 2206) ALKALINE PHOSPHATASE (test 117 U/L code = 2204) AST (test code = 2218) 16 U/L ALT (test code = 2219) 16 U/L ACUTE HEPATITIS [id number] 00:00:00 Test Item Value Reference Range Interpretation Comments HEPATITIS A IgM (test code = NON-REACTIVE 49893) HEPATITIS B CORE IgM (test code NON-REACTIVE = 4644) HEPATITIS B SURF AG (test code = NON-REACTIVE 2739) HEPATITIS C ANTIBODY (test code NON-REACTIVE = 4675) INTERPRETATION HEPATITIS A: (NOTE) (test code = 2552) INTERPRETATION HEPATITIS B: (NOTE) (test code = 19982) INTERPRETATION HEPATITIS C: (NOTE) (test code = 92407) ACUTE HEPATITIS [id number] 00:00:00 Test Item Value Reference Range Interpretation Comments HEPATITIS A IgM (test code = NON-REACTIVE 93816) HEPATITIS B CORE IgM (test code NON-REACTIVE = 4644) HEPATITIS B SURF AG (test code = NON-REACTIVE 2739) HEPATITIS C ANTIBODY (test code NON-REACTIVE = 4675) INTERPRETATION HEPATITIS A: (NOTE) (test code = 2552) INTERPRETATION HEPATITIS B: (NOTE) (test code = 01037) INTERPRETATION HEPATITIS C: (NOTE) (test code = 10915) [id number] 00:00:00 Test Item Value Reference Range Interpretation Comments TSH, THIRD GENERATION (test code 0.553 UIU/ML = 2821) [id number] 00:00:00 Test Item Value Reference Range Interpretation Comments TSH, THIRD GENERATION (test code 0.553 UIU/ML = 2821) [id number] 00:00:00 Test Item Value Reference Range Interpretation Comments TSH, THIRD GENERATION (test code 0.553 UIU/ML = 2821) ACUTE HEPATITIS [id number] 00:00:00 Test Item Value Reference Range Interpretation Comments HEPATITIS A IgM (test code = NON-REACTIVE 09946) HEPATITIS B CORE IgM (test code NON-REACTIVE = 4644) HEPATITIS B SURF AG (test code = NON-REACTIVE 2739) HEPATITIS C ANTIBODY (test code NON-REACTIVE = 4675) INTERPRETATION HEPATITIS A: (NOTE) (test code = 2552) INTERPRETATION HEPATITIS B: (NOTE) (test code = 74730) INTERPRETATION HEPATITIS C: (NOTE) (test code = 51594) [id number] 00:00:00 Test Item Value Reference Range Interpretation Comments TSH, THIRD GENERATION (test code 0.553 UIU/ML = 2821) [id number] 00:00:00 Test Item Value Reference Range Interpretation Comments TSH, THIRD GENERATION (test code 0.553 UIU/ML = 2821) LIPID [id number] 00:00:00 Test Item Value Reference Range Interpretation Comments CHOLESTEROL (test code = 2210) 213 MG/DL TRIGLYCERIDES (test code = 2232) 200 MG/DL HDL CHOLESTEROL (test code = 2220) 43 MG/DL CALC LDL CHOL (test code = 2237) 136 MG/DL RISK RATIO LDL/HDL (test code = 3.16 RATIO 2238) LIPID [id number] 00:00:00 Test Item Value Reference Range Interpretation Comments CHOLESTEROL (test code = 2210) 213 MG/DL TRIGLYCERIDES (test code = 2232) 200 MG/DL HDL CHOLESTEROL (test code = 2220) 43 MG/DL CALC LDL CHOL (test code = 2237) 136 MG/DL RISK RATIO LDL/HDL (test code = 3.16 RATIO 2238) COMPREHENSIVE METABOLIC [id number] 00:00:00 Test Item Value Reference Range Interpretation Comments GLUCOSE (test code = 2217) 68 MG/DL BUN (test code = 2208) 7 MG/DL CREATININE (test code = 2214) 0.70 MG/DL eGFR (2020 CKD-EPI) (test 108 ML/MIN/1.73 code = 81079) CALC BUN/CREAT (test code = 10 RATIO 2235) SODIUM (test code = 2231) 138 MEQ/L POTASSIUM (test code = 2228) 4.0 MEQ/L CHLORIDE (test code = 2215) 98 MEQ/L CARBON DIOXIDE (test code = 24 MEQ/L 2205) CALCIUM (test code = 2209) 10.8 MG/DL PROTEIN, TOTAL (test code = 8.5 G/DL 2228) ALBUMIN (test code = 2201) 4.1 G/DL CALC GLOBULIN (test code = 4.4 G/DL 0) CALC A/G RATIO (test code = 0.9 RATIO 2234) BILIRUBIN, TOTAL (test code = 0.2 MG/DL 2206) ALKALINE PHOSPHATASE (test 117 U/L code = 2204) AST (test code = 2218) 16 U/L ALT (test code = 2219) 16 U/L COMPREHENSIVE METABOLIC [id number] 00:00:00 Test Item Value Reference Range Interpretation Comments GLUCOSE (test code = 2217) 68 MG/DL BUN (test code = 2208) 7 MG/DL CREATININE (test code = 2214) 0.70 MG/DL eGFR (2020 CKD-EPI) (test 108 ML/MIN/1.73 code = 15873) CALC BUN/CREAT (test code = 10 RATIO 2235) SODIUM (test code = 2231) 138 MEQ/L POTASSIUM (test code = 2228) 4.0 MEQ/L CHLORIDE (test code = 2215) 98 MEQ/L CARBON DIOXIDE (test code = 24 MEQ/L 2205) CALCIUM (test code = 2209) 10.8 MG/DL PROTEIN, TOTAL (test code = 8.5 G/DL 2228) ALBUMIN (test code = 220) 4.1 G/DL CALC GLOBULIN (test code = 4.4 G/DL 2239) CALC A/G RATIO (test code = 0.9 RATIO 2233) BILIRUBIN, TOTAL (test code = 0.2 MG/DL 2206) ALKALINE PHOSPHATASE (test 117 U/L code = 2204) AST (test code = 2218) 16 U/L ALT (test code = 2219) 16 U/L ACUTE HEPATITIS [id number] 00:00:00 Test Item Value Reference Range Interpretation Comments HEPATITIS A IgM (test code = NON-REACTIVE 26807) HEPATITIS B CORE IgM (test code NON-REACTIVE = 4644) HEPATITIS B SURF AG (test code = NON-REACTIVE 2739) HEPATITIS C ANTIBODY (test code NON-REACTIVE = 4675) INTERPRETATION HEPATITIS A: (NOTE) (test code = 2552) INTERPRETATION HEPATITIS B: (NOTE) (test code = 89702) INTERPRETATION HEPATITIS C: (NOTE) (test code = 29770) ACUTE HEPATITIS [id number] 00:00:00 Test Item Value Reference Range Interpretation Comments HEPATITIS A IgM (test code = NON-REACTIVE 24199) HEPATITIS B CORE IgM (test code NON-REACTIVE = 4644) HEPATITIS B SURF AG (test code = NON-REACTIVE 2739) HEPATITIS C ANTIBODY (test code NON-REACTIVE = 4675) INTERPRETATION HEPATITIS A: (NOTE) (test code = 2552) INTERPRETATION HEPATITIS B: (NOTE) (test code = 11841) INTERPRETATION HEPATITIS C: (NOTE) (test code = 96970) [id number] 00:00:00 Test Item Value Reference Range Interpretation Comments TSH, THIRD GENERATION (test code 0.553 UIU/ML = 2821) [id number] 00:00:00 Test Item Value Reference Range Interpretation Comments TSH, THIRD GENERATION (test code 0.553 UIU/ML = 2821) [id number] 00:00:00 Test Item Value Reference Range Interpretation Comments TSH, THIRD GENERATION (test code 0.553 UIU/ML = 2821) CBC W/AUTO DIFF WITH [id number] 21:31:09 Test Item Value Reference Range Interpretation Comments WBC (test code = 5.6 K/UL 3.5-11.0 1001) RBC (test code = 4.44 M/UL 3.80-5.40 1002) HEMOGLOBIN (test code 13.4 G/DL 11.5-15.5 = 1003) HEMATOCRIT (test code 38.9 % 34.0-45.0 = 1004) MCV (test code = 87.6 fL 80.0-99.0 1005) MCH (test code = 30.2 PG 25.0-33.0 1006) MCHC (test code = 34.4 G/DL 31.0-36.0 1007) RDW (test code = 13.6 % 11.5-15.0 1038) NEUTROPHILS (test 51.0 % code = 1008) LYMPHOCYTES (test 37.9 % code = 1010) MONOCYTES (test code 7.5 % = 1011) EOSINOPHILS (test 2.7 % code = 1012) BASOPHILS (test code 0.5 % = 1013) IMMATURE GRANULOCYTES 0.4 % (test code = 1036) NUCLEATED RBCS (test 0.0 /100 WBC'S See_Comment [Aut omated code = 1065) message] The sy stem which generated this result transmitted reference range : 0.0. The refere nce range was not u sed to interpret th is result as normal/abnormal . PLATELET COUNT (test 242 K/UL 130-400 code = 1015) ABSOLUTE NEUTROPHILS 2.85 K/UL 1.50-7.50 (test code = 1066) ABSOLUTE LYMPHOCYTES 2.12 K/UL 1.00-4.00 (test code = 1067) ABSOLUTE MONOCYTES 0.42 K/UL 0.20-1.00 (test code = 1068) ABSOLUTE EOSINOPHILS 0.15 K/UL 0.00-0.50 (test code = 1040) ABSOLUTE BASOPHILS 0.03 K/UL 0.00-0.20 (test code = 1069) ABS IMMATURE 0.02 K/UL 0.00-0.10 GRANULOCYTES (test code = 1020) ABS NUCLEATED RBCS 0.00 K/UL 0.00-0.11 (test code = 54297) CBC W/AUTO [id number] 00:00:00 Test Item Value Reference Range Interpretation Comments WBC (test code = 1001) 5.6 K/UL RBC (test code = 1002) 4.44 M/UL HEMOGLOBIN (test code = 1003) 13.4 G/DL HEMATOCRIT (test code = 1004) 38.9 % MCV (test code = 1005) 87.6 fL MCH (test code = 1006) 30.2 PG MCHC (test code = 1007) 34.4 G/DL RDW (test code = 1038) 13.6 % NEUTROPHILS (test code = 1008) 51.0 % LYMPHOCYTES (test code = 1010) 37.9 % MONOCYTES (test code = 1011) 7.5 % EOSINOPHILS (test code = 1012) 2.7 % BASOPHILS (test code = 1013) 0.5 % IMMATURE GRANULOCYTES (test 0.4 % code = 1036) NUCLEATED RBCS (test code = 0.0 /100WBC'S 1065) PLATELET COUNT (test code = 242 K/UL 1015) ABSOLUTE NEUTROPHILS (test code 2.85 K/UL = 1066) ABSOLUTE LYMPHOCYTES (test code 2.12 K/UL = 1067) ABSOLUTE MONOCYTES (test code = 0.42 K/UL 1068) ABSOLUTE EOSINOPHILS (test code 0.15 K/UL = 1040) ABSOLUTE BASOPHILS (test code = 0.03 K/UL 1069) ABS IMMATURE GRANULOCYTES (test 0.02 K/UL code = 1020) ABS NUCLEATED RBCS (test code = 0.00 K/UL 87042) CBC W/AUTO [id number] 00:00:00 Test Item Value Reference Range Interpretation Comments WBC (test code = 1001) 5.6 K/UL RBC (test code = 1002) 4.44 M/UL HEMOGLOBIN (test code = 1003) 13.4 G/DL HEMATOCRIT (test code = 1004) 38.9 % MCV (test code = 1005) 87.6 fL MCH (test code = 1006) 30.2 PG MCHC (test code = 1007) 34.4 G/DL RDW (test code = 1038) 13.6 % NEUTROPHILS (test code = 1008) 51.0 % LYMPHOCYTES (test code = 1010) 37.9 % MONOCYTES (test code = 1011) 7.5 % EOSINOPHILS (test code = 1012) 2.7 % BASOPHILS (test code = 1013) 0.5 % IMMATURE GRANULOCYTES (test 0.4 % code = 1036) NUCLEATED RBCS (test code = 0.0 /100WBC'S 1065) PLATELET COUNT (test code = 242 K/UL 1015) ABSOLUTE NEUTROPHILS (test code 2.85 K/UL = 1066) ABSOLUTE LYMPHOCYTES (test code 2.12 K/UL = 1067) ABSOLUTE MONOCYTES (test code = 0.42 K/UL 1068) ABSOLUTE EOSINOPHILS (test code 0.15 K/UL = 1040) ABSOLUTE BASOPHILS (test code = 0.03 K/UL 1069) ABS IMMATURE GRANULOCYTES (test 0.02 K/UL code = 1020) ABS NUCLEATED RBCS (test code = 0.00 K/UL 86901) CBC W/AUTO [id number] 00:00:00 Test Item Value Reference Range Interpretation Comments WBC (test code = 1001) 5.6 K/UL RBC (test code = 1002) 4.44 M/UL HEMOGLOBIN (test code = 1003) 13.4 G/DL HEMATOCRIT (test code = 1004) 38.9 % MCV (test code = 1005) 87.6 fL MCH (test code = 1006) 30.2 PG MCHC (test code = 1007) 34.4 G/DL RDW (test code = 1038) 13.6 % NEUTROPHILS (test code = 1008) 51.0 % LYMPHOCYTES (test code = 1010) 37.9 % MONOCYTES (test code = 1011) 7.5 % EOSINOPHILS (test code = 1012) 2.7 % BASOPHILS (test code = 1013) 0.5 % IMMATURE GRANULOCYTES (test 0.4 % code = 1036) NUCLEATED RBCS (test code = 0.0 /100WBC'S 1065) PLATELET COUNT (test code = 242 K/UL 1015) ABSOLUTE NEUTROPHILS (test code 2.85 K/UL = 1066) ABSOLUTE LYMPHOCYTES (test code 2.12 K/UL = 1067) ABSOLUTE MONOCYTES (test code = 0.42 K/UL 1068) ABSOLUTE EOSINOPHILS (test code 0.15 K/UL = 1040) ABSOLUTE BASOPHILS (test code = 0.03 K/UL 1069) ABS IMMATURE GRANULOCYTES (test 0.02 K/UL code = 1020) ABS NUCLEATED RBCS (test code = 0.00 K/UL 82685) CBC W/AUTO [id number] 00:00:00 Test Item Value Reference Range Interpretation Comments WBC (test code = 1001) 5.6 K/UL RBC (test code = 1002) 4.44 M/UL HEMOGLOBIN (test code = 1003) 13.4 G/DL HEMATOCRIT (test code = 1004) 38.9 % MCV (test code = 1005) 87.6 fL MCH (test code = 1006) 30.2 PG MCHC (test code = 1007) 34.4 G/DL RDW (test code = 1038) 13.6 % NEUTROPHILS (test code = 1008) 51.0 % LYMPHOCYTES (test code = 1010) 37.9 % MONOCYTES (test code = 1011) 7.5 % EOSINOPHILS (test code = 1012) 2.7 % BASOPHILS (test code = 1013) 0.5 % IMMATURE GRANULOCYTES (test 0.4 % code = 1036) NUCLEATED RBCS (test code = 0.0 /100WBC'S 1065) PLATELET COUNT (test code = 242 K/UL 1015) ABSOLUTE NEUTROPHILS (test code 2.85 K/UL = 1066) ABSOLUTE LYMPHOCYTES (test code 2.12 K/UL = 1067) ABSOLUTE MONOCYTES (test code = 0.42 K/UL 1068) ABSOLUTE EOSINOPHILS (test code 0.15 K/UL = 1040) ABSOLUTE BASOPHILS (test code = 0.03 K/UL 1069) ABS IMMATURE GRANULOCYTES (test 0.02 K/UL code = 1020) ABS NUCLEATED RBCS (test code = 0.00 K/UL 67677) CBC W/AUTO [id number] 00:00:00 Test Item Value Reference Range Interpretation Comments WBC (test code = 1001) 5.6 K/UL RBC (test code = 1002) 4.44 M/UL HEMOGLOBIN (test code = 1003) 13.4 G/DL HEMATOCRIT (test code = 1004) 38.9 % MCV (test code = 1005) 87.6 fL MCH (test code = 1006) 30.2 PG MCHC (test code = 1007) 34.4 G/DL RDW (test code = 1038) 13.6 % NEUTROPHILS (test code = 1008) 51.0 % LYMPHOCYTES (test code = 1010) 37.9 % MONOCYTES (test code = 1011) 7.5 % EOSINOPHILS (test code = 1012) 2.7 % BASOPHILS (test code = 1013) 0.5 % IMMATURE GRANULOCYTES (test 0.4 % code = 1036) NUCLEATED RBCS (test code = 0.0 /100WBC'S 1065) PLATELET COUNT (test code = 242 K/UL 1015) ABSOLUTE NEUTROPHILS (test code 2.85 K/UL = 1066) ABSOLUTE LYMPHOCYTES (test code 2.12 K/UL = 1067) ABSOLUTE MONOCYTES (test code = 0.42 K/UL 1068) ABSOLUTE EOSINOPHILS (test code 0.15 K/UL = 1040) ABSOLUTE BASOPHILS (test code = 0.03 K/UL 1069) ABS IMMATURE GRANULOCYTES (test 0.02 K/UL code = 1020) ABS NUCLEATED RBCS (test code = 0.00 K/UL 67169) CBC W/AUTO [id number] 00:00:00 Test Item Value Reference Range Interpretation Comments WBC (test code = 1001) 5.6 K/UL RBC (test code = 1002) 4.44 M/UL HEMOGLOBIN (test code = 1003) 13.4 G/DL HEMATOCRIT (test code = 1004) 38.9 % MCV (test code = 1005) 87.6 fL MCH (test code = 1006) 30.2 PG MCHC (test code = 1007) 34.4 G/DL RDW (test code = 1038) 13.6 % NEUTROPHILS (test code = 1008) 51.0 % LYMPHOCYTES (test code = 1010) 37.9 % MONOCYTES (test code = 1011) 7.5 % EOSINOPHILS (test code = 1012) 2.7 % BASOPHILS (test code = 1013) 0.5 % IMMATURE GRANULOCYTES (test 0.4 % code = 1036) NUCLEATED RBCS (test code = 0.0 /100WBC'S 1065) PLATELET COUNT (test code = 242 K/UL 1015) ABSOLUTE NEUTROPHILS (test code 2.85 K/UL = 1066) ABSOLUTE LYMPHOCYTES (test code 2.12 K/UL = 1067) ABSOLUTE MONOCYTES (test code = 0.42 K/UL 1068) ABSOLUTE EOSINOPHILS (test code 0.15 K/UL = 1040) ABSOLUTE BASOPHILS (test code = 0.03 K/UL 1069) ABS IMMATURE GRANULOCYTES (test 0.02 K/UL code = 1020) ABS NUCLEATED RBCS (test code = 0.00 K/UL 26405) CBC W/AUTO [id number] 00:00:00 Test Item Value Reference Range Interpretation Comments WBC (test code = 1001) 5.6 K/UL RBC (test code = 1002) 4.44 M/UL HEMOGLOBIN (test code = 1003) 13.4 G/DL HEMATOCRIT (test code = 1004) 38.9 % MCV (test code = 1005) 87.6 fL MCH (test code = 1006) 30.2 PG MCHC (test code = 1007) 34.4 G/DL RDW (test code = 1038) 13.6 % NEUTROPHILS (test code = 1008) 51.0 % LYMPHOCYTES (test code = 1010) 37.9 % MONOCYTES (test code = 1011) 7.5 % EOSINOPHILS (test code = 1012) 2.7 % BASOPHILS (test code = 1013) 0.5 % IMMATURE GRANULOCYTES (test 0.4 % code = 1036) NUCLEATED RBCS (test code = 0.0 /100WBC'S 1065) PLATELET COUNT (test code = 242 K/UL 1015) ABSOLUTE NEUTROPHILS (test code 2.85 K/UL = 1066) ABSOLUTE LYMPHOCYTES (test code 2.12 K/UL = 1067) ABSOLUTE MONOCYTES (test code = 0.42 K/UL 1068) ABSOLUTE EOSINOPHILS (test code 0.15 K/UL = 1040) ABSOLUTE BASOPHILS (test code = 0.03 K/UL 1069) ABS IMMATURE GRANULOCYTES (test 0.02 K/UL code = 1020) ABS NUCLEATED RBCS (test code = 0.00 K/UL 04775) CBC W/AUTO [id number] 00:00:00 Test Item Value Reference Range Interpretation Comments WBC (test code = 1001) 5.6 K/UL RBC (test code = 1002) 4.44 M/UL HEMOGLOBIN (test code = 1003) 13.4 G/DL HEMATOCRIT (test code = 1004) 38.9 % MCV (test code = 1005) 87.6 fL MCH (test code = 1006) 30.2 PG MCHC (test code = 1007) 34.4 G/DL RDW (test code = 1038) 13.6 % NEUTROPHILS (test code = 1008) 51.0 % LYMPHOCYTES (test code = 1010) 37.9 % MONOCYTES (test code = 1011) 7.5 % EOSINOPHILS (test code = 1012) 2.7 % BASOPHILS (test code = 1013) 0.5 % IMMATURE GRANULOCYTES (test 0.4 % code = 1036) NUCLEATED RBCS (test code = 0.0 /100WBC'S 1065) PLATELET COUNT (test code = 242 K/UL 1015) ABSOLUTE NEUTROPHILS (test code 2.85 K/UL = 1066) ABSOLUTE LYMPHOCYTES (test code 2.12 K/UL = 1067) ABSOLUTE MONOCYTES (test code = 0.42 K/UL 1068) ABSOLUTE EOSINOPHILS (test code 0.15 K/UL = 1040) ABSOLUTE BASOPHILS (test code = 0.03 K/UL 1069) ABS IMMATURE GRANULOCYTES (test 0.02 K/UL code = 1020) ABS NUCLEATED RBCS (test code = 0.00 K/UL 01717) CBC W/AUTO [id number] 00:00:00 Test Item Value Reference Range Interpretation Comments WBC (test code = 1001) 5.6 K/UL RBC (test code = 1002) 4.44 M/UL HEMOGLOBIN (test code = 1003) 13.4 G/DL HEMATOCRIT (test code = 1004) 38.9 % MCV (test code = 1005) 87.6 fL MCH (test code = 1006) 30.2 PG MCHC (test code = 1007) 34.4 G/DL RDW (test code = 1038) 13.6 % NEUTROPHILS (test code = 1008) 51.0 % LYMPHOCYTES (test code = 1010) 37.9 % MONOCYTES (test code = 1011) 7.5 % EOSINOPHILS (test code = 1012) 2.7 % BASOPHILS (test code = 1013) 0.5 % IMMATURE GRANULOCYTES (test 0.4 % code = 1036) NUCLEATED RBCS (test code = 0.0 /100WBC'S 1065) PLATELET COUNT (test code = 242 K/UL 1015) ABSOLUTE NEUTROPHILS (test code 2.85 K/UL = 1066) ABSOLUTE LYMPHOCYTES (test code 2.12 K/UL = 1067) ABSOLUTE MONOCYTES (test code = 0.42 K/UL 1068) ABSOLUTE EOSINOPHILS (test code 0.15 K/UL = 1040) ABSOLUTE BASOPHILS (test code = 0.03 K/UL 1069) ABS IMMATURE GRANULOCYTES (test 0.02 K/UL code = 1020) ABS NUCLEATED RBCS (test code = 0.00 K/UL 38828) CBC W/AUTO [id number] 00:00:00 Test Item Value Reference Range Interpretation Comments WBC (test code = 1001) 5.6 K/UL RBC (test code = 1002) 4.44 M/UL HEMOGLOBIN (test code = 1003) 13.4 G/DL HEMATOCRIT (test code = 1004) 38.9 % MCV (test code = 1005) 87.6 fL MCH (test code = 1006) 30.2 PG MCHC (test code = 1007) 34.4 G/DL RDW (test code = 1038) 13.6 % NEUTROPHILS (test code = 1008) 51.0 % LYMPHOCYTES (test code = 1010) 37.9 % MONOCYTES (test code = 1011) 7.5 % EOSINOPHILS (test code = 1012) 2.7 % BASOPHILS (test code = 1013) 0.5 % IMMATURE GRANULOCYTES (test 0.4 % code = 1036) NUCLEATED RBCS (test code = 0.0 /100WBC'S 1065) PLATELET COUNT (test code = 242 K/UL 1015) ABSOLUTE NEUTROPHILS (test code 2.85 K/UL = 1066) ABSOLUTE LYMPHOCYTES (test code 2.12 K/UL = 1067) ABSOLUTE MONOCYTES (test code = 0.42 K/UL 1068) ABSOLUTE EOSINOPHILS (test code 0.15 K/UL = 1040) ABSOLUTE BASOPHILS (test code = 0.03 K/UL 1069) ABS IMMATURE GRANULOCYTES (test 0.02 K/UL code = 1020) ABS NUCLEATED RBCS (test code = 0.00 K/UL 69211) CBC W/AUTO [id number] 00:00:00 Test Item Value Reference Range Interpretation Comments WBC (test code = 1001) 5.6 K/UL RBC (test code = 1002) 4.44 M/UL HEMOGLOBIN (test code = 1003) 13.4 G/DL HEMATOCRIT (test code = 1004) 38.9 % MCV (test code = 1005) 87.6 fL MCH (test code = 1006) 30.2 PG MCHC (test code = 1007) 34.4 G/DL RDW (test code = 1038) 13.6 % NEUTROPHILS (test code = 1008) 51.0 % LYMPHOCYTES (test code = 1010) 37.9 % MONOCYTES (test code = 1011) 7.5 % EOSINOPHILS (test code = 1012) 2.7 % BASOPHILS (test code = 1013) 0.5 % IMMATURE GRANULOCYTES (test 0.4 % code = 1036) NUCLEATED RBCS (test code = 0.0 /100WBC'S 1065) PLATELET COUNT (test code = 242 K/UL 1015) ABSOLUTE NEUTROPHILS (test code 2.85 K/UL = 1066) ABSOLUTE LYMPHOCYTES (test code 2.12 K/UL = 1067) ABSOLUTE MONOCYTES (test code = 0.42 K/UL 1068) ABSOLUTE EOSINOPHILS (test code 0.15 K/UL = 1040) ABSOLUTE BASOPHILS (test code = 0.03 K/UL 1069) ABS IMMATURE GRANULOCYTES (test 0.02 K/UL code = 1020) ABS NUCLEATED RBCS (test code = 0.00 K/UL 44913) CBC W/AUTO [id number] 00:00:00 Test Item Value Reference Range Interpretation Comments WBC (test code = 1001) 5.6 K/UL RBC (test code = 1002) 4.44 M/UL HEMOGLOBIN (test code = 1003) 13.4 G/DL HEMATOCRIT (test code = 1004) 38.9 % MCV (test code = 1005) 87.6 fL MCH (test code = 1006) 30.2 PG MCHC (test code = 1007) 34.4 G/DL RDW (test code = 1038) 13.6 % NEUTROPHILS (test code = 1008) 51.0 % LYMPHOCYTES (test code = 1010) 37.9 % MONOCYTES (test code = 1011) 7.5 % EOSINOPHILS (test code = 1012) 2.7 % BASOPHILS (test code = 1013) 0.5 % IMMATURE GRANULOCYTES (test 0.4 % code = 1036) NUCLEATED RBCS (test code = 0.0 /100WBC'S 1065) PLATELET COUNT (test code = 242 K/UL 1015) ABSOLUTE NEUTROPHILS (test code 2.85 K/UL = 1066) ABSOLUTE LYMPHOCYTES (test code 2.12 K/UL = 1067) ABSOLUTE MONOCYTES (test code = 0.42 K/UL 1068) ABSOLUTE EOSINOPHILS (test code 0.15 K/UL = 1040) ABSOLUTE BASOPHILS (test code = 0.03 K/UL 1069) ABS IMMATURE GRANULOCYTES (test 0.02 K/UL code = 1020) ABS NUCLEATED RBCS (test code = 0.00 K/UL 61240) HEMOGLOBIN [id number] 03:18:19 Test Item Value Reference Range Interpretation Comments HEMOGLOBIN A1c (test 5.8 % 4.2-5.6 H UNLESS OTHERWISE code = 04721) INDICATED, ALL TESTING PERFORMED [email or web address], [facility]. [address] [place] [address] DIRECTOR: NASH WEEKS M.D. CLIA NUMBER [id number] CAP ACCREDITATION N O. [id number] HIV 1/2 4TH GEN, RFLX [id number] 03:04:30 Test Item Value Reference Range Interpretation Comments HIV 1/2 4TH GEN, RFLX CONF (test NON-REACTIVE NON-REACTIVE code = 3514) HIV AB/AG COMBO RFLX [id number] 00:00:00 Test Item Value Reference Range Interpretation Comments HIV 1/2 4TH GEN, RFLX CONF (test NON-REACTIVE code = 3514) HEMOGLOBIN [id number] 00:00:00 Test Item Value Reference Range Interpretation Comments HEMOGLOBIN A1c (test code = 11946) 5.8 % HEMOGLOBIN [id number] 00:00:00 Test Item Value Reference Range Interpretation Comments HEMOGLOBIN A1c (test code = 46526) 5.8 % HIV AB/AG COMBO RFLX [id number] 00:00:00 Test Item Value Reference Range Interpretation Comments HIV 1/2 4TH GEN, RFLX CONF (test NON-REACTIVE code = 3514) HIV AB/AG COMBO RFLX [id number] 00:00:00 Test Item Value Reference Range Interpretation Comments HIV 1/2 4TH GEN, RFLX CONF (test NON-REACTIVE code = 3514) HEMOGLOBIN [id number] 00:00:00 Test Item Value Reference Range Interpretation Comments HEMOGLOBIN A1c (test code = 23354) 5.8 % HEMOGLOBIN [id number] 00:00:00 Test Item Value Reference Range Interpretation Comments HEMOGLOBIN A1c (test code = 31008) 5.8 % HEMOGLOBIN [id number] 00:00:00 Test Item Value Reference Range Interpretation Comments HEMOGLOBIN A1c (test code = 35787) 5.8 % HIV AB/AG COMBO RFLX [id number] 00:00:00 Test Item Value Reference Range Interpretation Comments HIV 1/2 4TH GEN, RFLX CONF (test NON-REACTIVE code = 3514) HIV AB/AG COMBO RFLX [id number] 00:00:00 Test Item Value Reference Range Interpretation Comments HIV 1/2 4TH GEN, RFLX CONF (test NON-REACTIVE code = 3514) HEMOGLOBIN [id number] 00:00:00 Test Item Value Reference Range Interpretation Comments HEMOGLOBIN A1c (test code = 39624) 5.8 % HEMOGLOBIN [id number] 00:00:00 Test Item Value Reference Range Interpretation Comments HEMOGLOBIN A1c (test code = 21392) 5.8 % HEMOGLOBIN [id number] 00:00:00 Test Item Value Reference Range Interpretation Comments HEMOGLOBIN A1c (test code = 73111) 5.8 % HEMOGLOBIN [id number] 00:00:00 Test Item Value Reference Range Interpretation Comments HEMOGLOBIN A1c (test code = 52185) 5.8 % HIV AB/AG COMBO RFLX [id number] 00:00:00 Test Item Value Reference Range Interpretation Comments HIV 1/2 4TH GEN, RFLX CONF (test NON-REACTIVE code = 3514) HIV AB/AG COMBO RFLX [id number] 00:00:00 Test Item Value Reference Range Interpretation Comments HIV 1/2 4TH GEN, RFLX CONF (test NON-REACTIVE code = 3514) HEMOGLOBIN [id number] 00:00:00 Test Item Value Reference Range Interpretation Comments HEMOGLOBIN A1c (test code = 43402) 5.8 % HEMOGLOBIN [id number] 00:00:00 Test Item Value Reference Range Interpretation Comments HEMOGLOBIN A1c (test code = 30877) 5.8 % HEMOGLOBIN [id number] 00:00:00 Test Item Value Reference Range Interpretation Comments HEMOGLOBIN A1c (test code = 40833) 5.8 % COMP. METABOLIC PANEL (22915)[id number] 21:13:43 Test Item Value Reference Range Interpretation Comments NA (test code = 136 mmol/L 135-145 [id number]) K (test code = 4.3 mmol/L 3.5-5.0 [id number]) CL (test code = 96 mmol/L 98-108 L [id number]) CO2 TOTAL (test code = 28 mmol/L 23-31 5568395063) AGAP (test code = 2-16 6169257411) BUN (test code = 9 mg/dL 7-23 7481741560) GLUCOSE (test code = 102 mg/dL 70-110 7032405043) CREATININE (test code = 0.69 mg/dL 0.50-1.04 5890070657) TOTAL BILI (test code = 0.4 mg/dL 0.1-1.3 8117089822) CALCIUM (test code = 11.0 mg/dL 8.6-10.6 H 0699713185) T PROTEIN (test code = 9.2 g/dL 6.3-8.2 H 9224558986) ALBUMIN (test code = 4.5 g/dL 3.5-5.0 9249990867) ALK PHOS (test code = 113 U/L 34-122 7394223369) ALTv (test code = 22 U/L 5-35 1742-6) AST(SGOT) (test code = 25 U/L 13-40 4778874778) eGFR (test code = mL/min/1.73m2 2361305898) YANIRA (test code = YANIRA) Association of [...] tests). Lab Interpretation Abnormal (test code = 06588-1) [facility] [id number] 21:13:17 Test Item Value Reference Range Interpretation Comments CK (test code = 4602026160) 118 U/L 33-194 Lab Interpretation (test code = Normal 16462-0) [facility] WITH [id number] 21:01:01 Test Item Value Reference Range Interpretation Comments WBC (test code = See_Comment [Automated message] 6690-2) The system [employer] generated this result transmitted ref erence range: 4.30 - 1 1.10 10*3/?L. The re ference range was not u sed to interpret this result as normal/abnor mal. RBC (test code = See_Comment [Automated message] 789-8) The system [employer] generated this result transmitted ref erence range: [...] RDW-SD (test code 40.6 fL 39.0-49.9 = 28596-8) RDW-CV (test code 12.6 % 12.0-15.5 = 788-0) PLT (test code = See_Comment [Automated message] 777-3) The system whic h generated this result transmitted ref erence range: 166 - 35 8 10*3/?L. The re ference range was not u sed to interpret this result as normal/abnor mal. MPV (test code = 9.8 fL 9.5-12.9 49319-5) NRBC/100 WBC (test See_Comment [Automat ed message] code = 7458436742) The syste m which generated this result transmitted ref erence range: 0.0 - 10 .0 /100 WBCs. The refer ence range was not u sed to interpret this result as normal/abnor mal. NRBC x10^3 (test <0.01 See_Comment [Automated message] code = 9921028330) The syste m which generated this result transmitted ref erence range: 10*3/?L. The reference range was not used to interpr et this result as normal/abnormal . GRAN MAT (NEUT) % 61.0 % (test code = 770-8) IMM GRAN % (test 0.20 % code = 1290384213) LYMPH % (test code 30.1 % = 736-9) MONO % (test code 6.4 % = 5905-5) EOS % (test code = 2.1 % 713-8) BASO % (test code 0.2 % = 706-2) GRAN MAT 5.35 10*3/uL 1.88-7.09 x10^3(ANC) (test code = 3225185441) IMM GRAN x10^3 <0.03 0.00-0.06 (test code = 1283105334) LYMPH x10^3 (test 2.64 10*3/uL 1.32-3.29 code = 731-0) MONO x10^3 (test 0.56 10*3/uL 0.33-0.92 code = 742-7) EOS x10^3 (test 0.18 10*3/uL 0.03-0.39 code = 711-2) BASO x10^3 (test <0.03 0.01-0.07 code = 704-7) [facility] [id number] 20:49:00 Test Item Value Reference Range Interpretation Comments POCT PREG (test code = 1605) Negative On board controls acceptable with Present C Line (test code = 3574) POCT PREG LOT # (test code = HCG [id number]) POCT PREG TEST DATE (test 05/23/2022 code = 3576) Lab Interpretation (test code = Normal 30059-7) [facility] [id number] 01:38:03 Test Item Value Reference Range Interpretation Comments TROPONIN I (test 0.002 ng/mL See_Comment [Automated code = 3092933372) message] The system which generated this result [...] ? Lab Interpretation Normal (test code = 06956-4) [facility]. METABOLIC PANEL (13152)2020-09-11 01:38:03 Test Item Value Reference Range Interpretation Comments NA (test code = 141 mmol/L 135-145 7881840001) K (test code = 3.9 mmol/L 3.5-5.0 0490827044) CL (test code = 103 mmol/L 98-108 4992883669) CO2 TOTAL (test code = 27 mmol/L 23-31 2979706182) AGAP (test code = 2-16 7147025676) BUN (test code = 13 mg/dL 7-23 1080447799) GLUCOSE (test code = 131 mg/dL 70-110 H 6246617312) CREATININE (test code = 0.76 mg/dL 0.50-1.04 3786049285) TOTAL BILI (test code = 0.4 mg/dL 0.1-1.0 9965051491) CALCIUM (test code = 11.4 mg/dL 8.6-10.6 H 7398511249) T PROTEIN (test code = 9.5 g/dL 6.3-8.2 H 0503057721) ALBUMIN (test code = 4.6 g/dL 3.5-5.0 9141099002) ALK PHOS (test code = 108 U/L 34-122 0659898021) ALTv (test code = 26 U/L 5-35 1742-6) AST(SGOT) (test code = 33 U/L 13-40 7105698944) eGFR (test code = mL/min/1.73m2 9403534447) YANIRA (test code = YANIRA) Association of [...] tests). Lab Interpretation Abnormal (test code = 24310-7) [facility] TexasLIPASE, [id number] 01:38:03 Test Item Value Reference Range Interpretation Comments LIPASE (test code = 1281415771) 195 U/L 0-220 Lab Interpretation (test code = Normal 55108-2) [facility]aPTT2021-06-19 01:20:00 Test Item Value Reference Range Interpretation Comments APTT Patient (test See_Comment [Automat ed code = 3173-2) message] The system which generated this result transmitted reference range : 23 - 38 Seconds . The reference range was not used to interpr et this result as normal/abnormal . YANIRA (test code = YANIRA) [facility] patient population mean normal value for aPTT is 30 seconds. Lab Interpretation Normal (test code = 33975-4) [facility] TexasPROTHROMBIN TIME / [id number] 01:17:58 Test Item Value Reference Range Interpretation [...] tions. Lab Interpretation (test Normal code = 59288-2) [facility] TexasCB WITH [id number] 01:10:57 Test Item Value Reference Range Interpretation Comments WBC (test code = See_Comment [Automated message] 6690-2) The system [employer] generated this result transmitted ref erence range: 4.30 - 1 1.10 10*3/?L. The re ference range was not u sed to interpret this result as normal/abnor mal. RBC (test code = See_Comment [Automated message] 789-8) The system [employer] generated this result transmitted ref erence range: [...] RDW-SD (test code 40.8 fL 39.0-49.9 = 69859-4) RDW-CV (test code 12.6 % 12.0-15.5 = 788-0) PLT (test code = See_Comment [Automated message] 777-3) The system [employer] generated this result transmitted ref erence range: 166 - 35 8 10*3/?L. The re ference range was not u sed to interpret this result as normal/abnor mal. MPV (test code = 10.0 fL 9.5-12.9 27565-2) NRBC/100 WBC (test See_Comment [Automat ed message] code = 0253294731) The syste m which generated this result transmitted ref erence range: 0.0 - 10 .0 /100 WBCs. The refer ence range was not u sed to interpret this result as normal/abnor mal. NRBC x10^3 (test <0.01 See_Comment [Automated message] code = 1512093072) The syste m which generated this result transmitted ref erence range: 10*3/?L. The reference range was not used to interpr et this result as normal/abnormal . GRAN MAT (NEUT) % 53.6 % (test code = 770-8) IMM GRAN % (test 0.30 % code = 5606733524) LYMPH % (test code 35.7 % = 736-9) MONO % (test code 7.7 % = 5905-5) EOS % (test code = 2.4 % 713-8) BASO % (test code 0.3 % = 706-2) GRAN MAT 3.94 10*3/uL 1.88-7.09 x10^3(ANC) (test code = 0222685814) IMM GRAN x10^3 <0.03 0.00-0.06 (test code = 9123370422) LYMPH x10^3 (test 2.63 10*3/uL 1.32-3.29 code = 731-0) MONO x10^3 (test 0.57 10*3/uL 0.33-0.92 code = 742-7) EOS x10^3 (test 0.18 10*3/uL 0.03-0.39 code = 711-2) BASO x10^3 (test <0.03 0.01-0.07 code = 704-7) [facility] TexasURINALYSIS2021-02-10 22:06:00 Test Item Value Reference Range Interpretation Comments APPEARANCE (test code = Cloudy Clear A 0657080393) COLOR (test code = Yellow Yellow 5842975015) PH (test code = 4.8-8.0 0829119157) SP GRAVITY (test code = 1.003-1.030 0834775459) GLU U QUAL (test code = Normal Normal 5751571409) BLOOD (test code = Negative Negative INTERFERE NCE FROM 5914091154) ASCORBIC ACID M AY CAUSE FALSE NEG ATIVE RESULT KETONES (test code = Negative Negative 5824977065) PROTEIN (test code = 30 mg/dL Negative A 2887-8) UROBILIN (test code = 2.0 mg/dL Normal A 8166013082) BILIRUBIN (test code = Negative Negative 0649657642) NITRITE (test code = Negative Negative 9088385930) LEUK ANA (test code = 25/uL Negative A 6352731850) RBC/HPF (test code = <1 See_Comment [Autom ated message] 8470965796) The system [employer] generated this result transmitted ref erence range: 0 - 3 HP F. The reference range was not used to int erpret this result as normal/abnormal . WBC/HPF (test code = See_Comment H [Autom ated message] 7320364229) The system [employer] generated this result transmitted ref erence range: 0 - 5 HP F. The reference range was not used to int erpret this result as normal/abnormal . BACTERIA (test code = Many Negative A 6602633569) MUCOUS (test code = Slight Negative LPF A 1756732496) AMORPHOUS (test code = Few Rare HPF A 3766490734) SQ EPITH (test code = HPF 4857328891) CA OXALATE (test code = See_Comment H [Au tomated message] 9958213055) The system [employer] generated this result transmitted ref erence range: <=1 HPF. The reference range was not used to int erpret this result as normal/abnormal . Lab Interpretation Abnormal (test code = 41818-0) [facility] TexasHEMOGLOBIN [id number] 00:00:00 Test Item Value Reference Range Interpretation Comments HEMOGLOBIN A1c (test code = 80741) 5.8 % HEMOGLOBIN [id number] 00:00:00 Test Item Value Reference Range Interpretation Comments HEMOGLOBIN A1c (test code = 37114) 5.8 % CBC W/AUTO [id number] 00:00:00 Test Item Value Reference Range Interpretation Comments WBC (test code = 1001) 5.8 K/UL RBC (test code = 1002) 4.61 M/UL HEMOGLOBIN (test code = 1003) 13.6 G/DL HEMATOCRIT (test code = 1004) 39.4 % MCV (test code = 1005) 85.5 fL MCH (test code = 1006) 29.5 PG MCHC (test code = 1007) 34.5 G/DL RDW (test code = 1038) 12.8 % NEUTROPHILS (test code = 1008) 53.1 % LYMPHOCYTES (test code = 1010) 36.4 % MONOCYTES (test code = 1011) 7.4 % EOSINOPHILS (test code = 1012) 2.6 % BASOPHILS (test code = 1013) 0.5 % PLATELET COUNT (test code = 1015) 230 K/UL CBC W/AUTO [id number] 00:00:00 Test Item Value Reference Range Interpretation Comments WBC (test code = 1001) 5.8 K/UL RBC (test code = 1002) 4.61 M/UL HEMOGLOBIN (test code = 1003) 13.6 G/DL HEMATOCRIT (test code = 1004) 39.4 % MCV (test code = 1005) 85.5 fL MCH (test code = 1006) 29.5 PG MCHC (test code = 1007) 34.5 G/DL RDW (test code = 1038) 12.8 % NEUTROPHILS (test code = 1008) 53.1 % LYMPHOCYTES (test code = 1010) 36.4 % MONOCYTES (test code = 1011) 7.4 % EOSINOPHILS (test code = 1012) 2.6 % BASOPHILS (test code = 1013) 0.5 % PLATELET COUNT (test code = 1015) 230 K/UL COMPREHENSIVE METABOLIC [id number] 00:00:00 Test Item Value Reference Range Interpretation Comments GLUCOSE (test code = 2217) 113 MG/DL BUN (test code = 2208) 8 MG/DL CREATININE (test code = 2214) 0.70 MG/DL eGFR AMER. (test code 122 ML/MIN/1.73 = 68545) eGFR NON- AMER. (test 105 ML/MIN/1.73 code = 07287) CALC BUN/CREAT (test code = 11 RATIO 2235) SODIUM (test code = 2231) 137 MEQ/L POTASSIUM (test code = 2228) 4.3 MEQ/L CHLORIDE (test code = 2215) 99 MEQ/L CARBON DIOXIDE (test code = 25 MEQ/L 6) CALCIUM (test code = 2209) 10.6 MG/DL PROTEIN, TOTAL (test code = 8.2 G/DL 2228) ALBUMIN (test code = 2201) 4.1 G/DL CALC GLOBULIN (test code = 4.1 G/DL 2239) CALC A/G RATIO (test code = 1.0 RATIO 2234) BILIRUBIN, TOTAL (test code = 0.2 MG/DL 2206) ALKALINE PHOSPHATASE (test 100 U/L code = 2204) AST (test code = 2218) 19 U/L ALT (test code = 2219) 18 U/L LIPID [id number] 00:00:00 Test Item Value Reference Range Interpretation Comments CHOLESTEROL (test code = 2210) 191 MG/DL TRIGLYCERIDES (test code = 2232) 173 MG/DL HDL CHOLESTEROL (test code = 2220) 40 MG/DL CALC LDL CHOL (test code = 2237) 122 MG/DL RISK RATIO LDL/HDL (test code = 3.05 RATIO 2238) VITAMIN D, 25 [id number] 00:00:00 Test Item Value Reference Range Interpretation Comments VITAMIN D, 25 OH (test code = 4958) 25 NG/ML HEMOGLOBIN [id number] 00:00:00 Test Item Value Reference Range Interpretation Comments HEMOGLOBIN A1c (test code = 31554) 5.8 % HEMOGLOBIN [id number] 00:00:00 Test Item Value Reference Range Interpretation Comments HEMOGLOBIN A1c (test code = 74948) 5.8 % HEMOGLOBIN [id number] 00:00:00 Test Item Value Reference Range Interpretation Comments HEMOGLOBIN A1c (test code = 64709) 5.8 % HEMOGLOBIN [id number] 00:00:00 Test Item Value Reference Range Interpretation Comments HEMOGLOBIN A1c (test code = 98471) 5.8 % CBC W/AUTO [id number] 00:00:00 Test Item Value Reference Range Interpretation Comments WBC (test code = 1001) 5.8 K/UL RBC (test code = 1002) 4.61 M/UL HEMOGLOBIN (test code = 1003) 13.6 G/DL HEMATOCRIT (test code = 1004) 39.4 % MCV (test code = 1005) 85.5 fL MCH (test code = 1006) 29.5 PG MCHC (test code = 1007) 34.5 G/DL RDW (test code = 1038) 12.8 % NEUTROPHILS (test code = 1008) 53.1 % LYMPHOCYTES (test code = 1010) 36.4 % MONOCYTES (test code = 1011) 7.4 % EOSINOPHILS (test code = 1012) 2.6 % BASOPHILS (test code = 1013) 0.5 % PLATELET COUNT (test code = 1015) 230 K/UL CBC W/AUTO [id number] 00:00:00 Test Item Value Reference Range Interpretation Comments WBC (test code = 1001) 5.8 K/UL RBC (test code = 1002) 4.61 M/UL HEMOGLOBIN (test code = 1003) 13.6 G/DL HEMATOCRIT (test code = 1004) 39.4 % MCV (test code = 1005) 85.5 fL MCH (test code = 1006) 29.5 PG MCHC (test code = 1007) 34.5 G/DL RDW (test code = 1038) 12.8 % NEUTROPHILS (test code = 1008) 53.1 % LYMPHOCYTES (test code = 1010) 36.4 % MONOCYTES (test code = 1011) 7.4 % EOSINOPHILS (test code = 1012) 2.6 % BASOPHILS (test code = 1013) 0.5 % PLATELET COUNT (test code = 1015) 230 K/UL COMPREHENSIVE METABOLIC [id number] 00:00:00 Test Item Value Reference Range Interpretation Comments GLUCOSE (test code = 2217) 113 MG/DL BUN (test code = 2208) 8 MG/DL CREATININE (test code = 2214) 0.70 MG/DL eGFR AMER. (test code 122 ML/MIN/1.73 = 01866) eGFR NON- AMER. (test 105 ML/MIN/1.73 code = 54464) CALC BUN/CREAT (test code = 11 RATIO 2235) SODIUM (test code = 2231) 137 MEQ/L POTASSIUM (test code = 2228) 4.3 MEQ/L CHLORIDE (test code = 2215) 99 MEQ/L CARBON DIOXIDE (test code = 25 MEQ/L 2205) CALCIUM (test code = 2209) 10.6 MG/DL PROTEIN, TOTAL (test code = 8.2 G/DL 2228) ALBUMIN (test code = 2201) 4.1 G/DL CALC GLOBULIN (test code = 4.1 G/DL 2240) CALC A/G RATIO (test code = 1.0 RATIO 4) BILIRUBIN, TOTAL (test code = 0.2 MG/DL 2206) ALKALINE PHOSPHATASE (test 100 U/L code = 2204) AST (test code = 2218) 19 U/L ALT (test code = 2219) 18 U/L LIPID [id number] 00:00:00 Test Item Value Reference Range Interpretation Comments CHOLESTEROL (test code = 2210) 191 MG/DL TRIGLYCERIDES (test code = 2232) 173 MG/DL HDL CHOLESTEROL (test code = 2220) 40 MG/DL CALC LDL CHOL (test code = 2237) 122 MG/DL RISK RATIO LDL/HDL (test code = 3.05 RATIO 2238) VITAMIN D, 25 [id number] 00:00:00 Test Item Value Reference Range Interpretation Comments VITAMIN D, 25 OH (test code = 4958) 25 NG/ML CBC W/AUTO [id number] 00:00:00 Test Item Value Reference Range Interpretation Comments WBC (test code = 1001) 5.8 K/UL RBC (test code = 1002) 4.61 M/UL HEMOGLOBIN (test code = 1003) 13.6 G/DL HEMATOCRIT (test code = 1004) 39.4 % MCV (test code = 1005) 85.5 fL MCH (test code = 1006) 29.5 PG MCHC (test code = 1007) 34.5 G/DL RDW (test code = 1038) 12.8 % NEUTROPHILS (test code = 1008) 53.1 % LYMPHOCYTES (test code = 1010) 36.4 % MONOCYTES (test code = 1011) 7.4 % EOSINOPHILS (test code = 1012) 2.6 % BASOPHILS (test code = 1013) 0.5 % PLATELET COUNT (test code = 1015) 230 K/UL CBC W/AUTO [id number] 00:00:00 Test Item Value Reference Range Interpretation Comments WBC (test code = 1001) 5.8 K/UL RBC (test code = 1002) 4.61 M/UL HEMOGLOBIN (test code = 1003) 13.6 G/DL HEMATOCRIT (test code = 1004) 39.4 % MCV (test code = 1005) 85.5 fL MCH (test code = 1006) 29.5 PG MCHC (test code = 1007) 34.5 G/DL RDW (test code = 1038) 12.8 % NEUTROPHILS (test code = 1008) 53.1 % LYMPHOCYTES (test code = 1010) 36.4 % MONOCYTES (test code = 1011) 7.4 % EOSINOPHILS (test code = 1012) 2.6 % BASOPHILS (test code = 1013) 0.5 % PLATELET COUNT (test code = 1015) 230 K/UL HEMOGLOBIN [id number] 00:00:00 Test Item Value Reference Range Interpretation Comments HEMOGLOBIN A1c (test code = 14998) 5.8 % HEMOGLOBIN [id number] 00:00:00 Test Item Value Reference Range Interpretation Comments HEMOGLOBIN A1c (test code = 91299) 5.8 % HEMOGLOBIN [id number] 00:00:00 Test Item Value Reference Range Interpretation Comments HEMOGLOBIN A1c (test code = 59382) 5.8 % CBC W/AUTO [id number] 00:00:00 Test Item Value Reference Range Interpretation Comments WBC (test code = 1001) 5.8 K/UL RBC (test code = 1002) 4.61 M/UL HEMOGLOBIN (test code = 1003) 13.6 G/DL HEMATOCRIT (test code = 1004) 39.4 % MCV (test code = 1005) 85.5 fL MCH (test code = 1006) 29.5 PG MCHC (test code = 1007) 34.5 G/DL RDW (test code = 1038) 12.8 % NEUTROPHILS (test code = 1008) 53.1 % LYMPHOCYTES (test code = 1010) 36.4 % MONOCYTES (test code = 1011) 7.4 % EOSINOPHILS (test code = 1012) 2.6 % BASOPHILS (test code = 1013) 0.5 % PLATELET COUNT (test code = 1015) 230 K/UL CBC W/AUTO [id number] 00:00:00 Test Item Value Reference Range Interpretation Comments WBC (test code = 1001) 5.8 K/UL RBC (test code = 1002) 4.61 M/UL HEMOGLOBIN (test code = 1003) 13.6 G/DL HEMATOCRIT (test code = 1004) 39.4 % MCV (test code = 1005) 85.5 fL MCH (test code = 1006) 29.5 PG MCHC (test code = 1007) 34.5 G/DL RDW (test code = 1038) 12.8 % NEUTROPHILS (test code = 1008) 53.1 % LYMPHOCYTES (test code = 1010) 36.4 % MONOCYTES (test code = 1011) 7.4 % EOSINOPHILS (test code = 1012) 2.6 % BASOPHILS (test code = 1013) 0.5 % PLATELET COUNT (test code = 1015) 230 K/UL CBC W/AUTO [id number] 00:00:00 Test Item Value Reference Range Interpretation Comments WBC (test code = 1001) 5.8 K/UL RBC (test code = 1002) 4.61 M/UL HEMOGLOBIN (test code = 1003) 13.6 G/DL HEMATOCRIT (test code = 1004) 39.4 % MCV (test code = 1005) 85.5 fL MCH (test code = 1006) 29.5 PG MCHC (test code = 1007) 34.5 G/DL RDW (test code = 1038) 12.8 % NEUTROPHILS (test code = 1008) 53.1 % LYMPHOCYTES (test code = 1010) 36.4 % MONOCYTES (test code = 1011) 7.4 % EOSINOPHILS (test code = 1012) 2.6 % BASOPHILS (test code = 1013) 0.5 % PLATELET COUNT (test code = 1015) 230 K/UL COMPREHENSIVE METABOLIC [id number] 00:00:00 Test Item Value Reference Range Interpretation Comments GLUCOSE (test code = 2217) 113 MG/DL BUN (test code = 2208) 8 MG/DL CREATININE (test code = 2214) 0.70 MG/DL eGFR AMER. (test code 122 ML/MIN/1.73 = 29041) eGFR NON- AMER. (test 105 ML/MIN/1.73 code = 07579) CALC BUN/CREAT (test code = 11 RATIO 2235) SODIUM (test code = 2231) 137 MEQ/L POTASSIUM (test code = 2228) 4.3 MEQ/L CHLORIDE (test code = 2215) 99 MEQ/L CARBON DIOXIDE (test code = 25 MEQ/L 2205) CALCIUM (test code = 2209) 10.6 MG/DL PROTEIN, TOTAL (test code = 8.2 G/DL 2228) ALBUMIN (test code = 2201) 4.1 G/DL CALC GLOBULIN (test code = 4.1 G/DL 2240) CALC A/G RATIO (test code = 1.0 RATIO 223) BILIRUBIN, TOTAL (test code = 0.2 MG/DL 2206) ALKALINE PHOSPHATASE (test 100 U/L code = 2204) AST (test code = 2218) 19 U/L ALT (test code = 2219) 18 U/L COMPREHENSIVE METABOLIC [id number] 00:00:00 Test Item Value Reference Range Interpretation Comments GLUCOSE (test code = 2217) 113 MG/DL BUN (test code = 2208) 8 MG/DL CREATININE (test code = 2214) 0.70 MG/DL eGFR AMER. (test code 122 ML/MIN/1.73 = 37671) eGFR NON- AMER. (test 105 ML/MIN/1.73 code = 32876) CALC BUN/CREAT (test code = 11 RATIO 2235) SODIUM (test code = 2231) 137 MEQ/L POTASSIUM (test code = 2228) 4.3 MEQ/L CHLORIDE (test code = 2215) 99 MEQ/L CARBON DIOXIDE (test code = 25 MEQ/L 2205) CALCIUM (test code = 2209) 10.6 MG/DL PROTEIN, TOTAL (test code = 8.2 G/DL 2228) ALBUMIN (test code = 2201) 4.1 G/DL CALC GLOBULIN (test code = 4.1 G/DL 2239) CALC A/G RATIO (test code = 1.0 RATIO 2233) BILIRUBIN, TOTAL (test code = 0.2 MG/DL 2206) ALKALINE PHOSPHATASE (test 100 U/L code = 2204) AST (test code = 2218) 19 U/L ALT (test code = 2219) 18 U/L LIPID [id number] 00:00:00 Test Item Value Reference Range Interpretation Comments CHOLESTEROL (test code = 2210) 191 MG/DL TRIGLYCERIDES (test code = 2232) 173 MG/DL HDL CHOLESTEROL (test code = 2220) 40 MG/DL CALC LDL CHOL (test code = 2237) 122 MG/DL RISK RATIO LDL/HDL (test code = 3.05 RATIO 2238) LIPID [id number] 00:00:00 Test Item Value Reference Range Interpretation Comments CHOLESTEROL (test code = 2210) 191 MG/DL TRIGLYCERIDES (test code = 2232) 173 MG/DL HDL CHOLESTEROL (test code = 2220) 40 MG/DL CALC LDL CHOL (test code = 2237) 122 MG/DL RISK RATIO LDL/HDL (test code = 3.05 RATIO 2238) COMPREHENSIVE METABOLIC [id number] 00:00:00 Test Item Value Reference Range Interpretation Comments GLUCOSE (test code = 2217) 113 MG/DL BUN (test code = 2208) 8 MG/DL CREATININE (test code = 2214) 0.70 MG/DL eGFR AMER. (test code 122 ML/MIN/1.73 = 56082) eGFR NON- AMER. (test 105 ML/MIN/1.73 code = 59296) CALC BUN/CREAT (test code = 11 RATIO 2235) SODIUM (test code = 2231) 137 MEQ/L POTASSIUM (test code = 2228) 4.3 MEQ/L CHLORIDE (test code = 2215) 99 MEQ/L CARBON DIOXIDE (test code = 25 MEQ/L 2205) CALCIUM (test code = 2209) 10.6 MG/DL PROTEIN, TOTAL (test code = 8.2 G/DL 2228) ALBUMIN (test code = 2201) 4.1 G/DL CALC GLOBULIN (test code = 4.1 G/DL 2239) CALC A/G RATIO (test code = 1.0 RATIO 2233) BILIRUBIN, TOTAL (test code = 0.2 MG/DL 2206) ALKALINE PHOSPHATASE (test 100 U/L code = 2204) AST (test code = 2218) 19 U/L ALT (test code = 2219) 18 U/L VITAMIN D, 25 [id number] 00:00:00 Test Item Value Reference Range Interpretation Comments VITAMIN D, 25 OH (test code = 4958) 25 NG/ML VITAMIN D, 25 [id number] 00:00:00 Test Item Value Reference Range Interpretation Comments VITAMIN D, 25 OH (test code = 4958) 25 NG/ML LIPID [id number] 00:00:00 Test Item Value Reference Range Interpretation Comments CHOLESTEROL (test code = 2210) 191 MG/DL TRIGLYCERIDES (test code = 2232) 173 MG/DL HDL CHOLESTEROL (test code = 2220) 40 MG/DL CALC LDL CHOL (test code = 2237) 122 MG/DL RISK RATIO LDL/HDL (test code = 3.05 RATIO 2238) HEMOGLOBIN [id number] 00:00:00 Test Item Value Reference Range Interpretation Comments HEMOGLOBIN A1c (test code = 47775) 5.8 % VITAMIN D, 25 [id number] 00:00:00 Test Item Value Reference Range Interpretation Comments VITAMIN D, 25 OH (test code = 4958) 25 NG/ML HEMOGLOBIN [id number] 00:00:00 Test Item Value Reference Range Interpretation Comments HEMOGLOBIN A1c (test code = 94107) 5.8 % HEMOGLOBIN [id number] 00:00:00 Test Item Value Reference Range Interpretation Comments HEMOGLOBIN A1c (test code = 66780) 5.8 % CBC W/AUTO [id number] 00:00:00 Test Item Value Reference Range Interpretation Comments WBC (test code = 1001) 5.8 K/UL RBC (test code = 1002) 4.61 M/UL HEMOGLOBIN (test code = 1003) 13.6 G/DL HEMATOCRIT (test code = 1004) 39.4 % MCV (test code = 1005) 85.5 fL MCH (test code = 1006) 29.5 PG MCHC (test code = 1007) 34.5 G/DL RDW (test code = 1038) 12.8 % NEUTROPHILS (test code = 1008) 53.1 % LYMPHOCYTES (test code = 1010) 36.4 % MONOCYTES (test code = 1011) 7.4 % EOSINOPHILS (test code = 1012) 2.6 % BASOPHILS (test code = 1013) 0.5 % PLATELET COUNT (test code = 1015) 230 K/UL CBC W/AUTO [id number] 00:00:00 Test Item Value Reference Range Interpretation Comments WBC (test code = 1001) 5.8 K/UL RBC (test code = 1002) 4.61 M/UL HEMOGLOBIN (test code = 1003) 13.6 G/DL HEMATOCRIT (test code = 1004) 39.4 % MCV (test code = 1005) 85.5 fL MCH (test code = 1006) 29.5 PG MCHC (test code = 1007) 34.5 G/DL RDW (test code = 1038) 12.8 % NEUTROPHILS (test code = 1008) 53.1 % LYMPHOCYTES (test code = 1010) 36.4 % MONOCYTES (test code = 1011) 7.4 % EOSINOPHILS (test code = 1012) 2.6 % BASOPHILS (test code = 1013) 0.5 % PLATELET COUNT (test code = 1015) 230 K/UL CBC W/AUTO [id number] 00:00:00 Test Item Value Reference Range Interpretation Comments WBC (test code = 1001) 5.8 K/UL RBC (test code = 1002) 4.61 M/UL HEMOGLOBIN (test code = 1003) 13.6 G/DL HEMATOCRIT (test code = 1004) 39.4 % MCV (test code = 1005) 85.5 fL MCH (test code = 1006) 29.5 PG MCHC (test code = 1007) 34.5 G/DL RDW (test code = 1038) 12.8 % NEUTROPHILS (test code = 1008) 53.1 % LYMPHOCYTES (test code = 1010) 36.4 % MONOCYTES (test code = 1011) 7.4 % EOSINOPHILS (test code = 1012) 2.6 % BASOPHILS (test code = 1013) 0.5 % PLATELET COUNT (test code = 1015) 230 K/UL COMPREHENSIVE METABOLIC [id number] 00:00:00 Test Item Value Reference Range Interpretation Comments GLUCOSE (test code = 2217) 113 MG/DL BUN (test code = 2208) 8 MG/DL CREATININE (test code = 2214) 0.70 MG/DL eGFR AMER. (test code 122 ML/MIN/1.73 = 81460) eGFR NON- AMER. (test 105 ML/MIN/1.73 code = 38342) CALC BUN/CREAT (test code = 11 RATIO 2235) SODIUM (test code = 2231) 137 MEQ/L POTASSIUM (test code = 2228) 4.3 MEQ/L CHLORIDE (test code = 2215) 99 MEQ/L CARBON DIOXIDE (test code = 25 MEQ/L 2206) CALCIUM (test code = 2209) 10.6 MG/DL PROTEIN, TOTAL (test code = 8.2 G/DL 222) ALBUMIN (test code = 2201) 4.1 G/DL CALC GLOBULIN (test code = 4.1 G/DL 2240) CALC A/G RATIO (test code = 1.0 RATIO 2234) BILIRUBIN, TOTAL (test code = 0.2 MG/DL 220) ALKALINE PHOSPHATASE (test 100 U/L code = 2204) AST (test code = 2218) 19 U/L ALT (test code = 2219) 18 U/L COMPREHENSIVE METABOLIC [id number] 00:00:00 Test Item Value Reference Range Interpretation Comments GLUCOSE (test code = 2217) 113 MG/DL BUN (test code = 2208) 8 MG/DL CREATININE (test code = 2214) 0.70 MG/DL eGFR AMER. (test code 122 ML/MIN/1.73 = 77271) eGFR NON- AMER. (test 105 ML/MIN/1.73 code = 23399) CALC BUN/CREAT (test code = 11 RATIO 2235) SODIUM (test code = 2231) 137 MEQ/L POTASSIUM (test code = 2228) 4.3 MEQ/L CHLORIDE (test code = 2215) 99 MEQ/L CARBON DIOXIDE (test code = 25 MEQ/L 2205) CALCIUM (test code = 2209) 10.6 MG/DL PROTEIN, TOTAL (test code = 8.2 G/DL 2228) ALBUMIN (test code = 2201) 4.1 G/DL CALC GLOBULIN (test code = 4.1 G/DL 2240) CALC A/G RATIO (test code = 1.0 RATIO 2233) BILIRUBIN, TOTAL (test code = 0.2 MG/DL 2206) ALKALINE PHOSPHATASE (test 100 U/L code = 2204) AST (test code = 2218) 19 U/L ALT (test code = 2219) 18 U/L LIPID [id number] 00:00:00 Test Item Value Reference Range Interpretation Comments CHOLESTEROL (test code = 2210) 191 MG/DL TRIGLYCERIDES (test code = 2232) 173 MG/DL HDL CHOLESTEROL (test code = 2220) 40 MG/DL CALC LDL CHOL (test code = 2237) 122 MG/DL RISK RATIO LDL/HDL (test code = 3.05 RATIO 2238) LIPID [id number] 00:00:00 Test Item Value Reference Range Interpretation Comments CHOLESTEROL (test code = 2210) 191 MG/DL TRIGLYCERIDES (test code = 2232) 173 MG/DL HDL CHOLESTEROL (test code = 2220) 40 MG/DL CALC LDL CHOL (test code = 2237) 122 MG/DL RISK RATIO LDL/HDL (test code = 3.05 RATIO 2238) VITAMIN D, 25 [id number] 00:00:00 Test Item Value Reference Range Interpretation Comments VITAMIN D, 25 OH (test code = 4958) 25 NG/ML VITAMIN D, 25 [id number] 00:00:00 Test Item Value Reference Range Interpretation Comments VITAMIN D, 25 OH (test code = 4958) 25 NG/ML THYROID II PROFILE (T3U, T4, T7, TSH)2019-08-01 00:00:00 Test Item Value Reference Range Interpretation Comments T-UPTAKE (test code = 2817) 27.2 % THYROX. BIND. CAPAC. (test code 1.2 = 06359) T4 (THYROXINE) (test code = 8.4 UG/DL 2819) CORRECTED T4 (FTI) (test code = 7.0 UG/DL 2820) TSH, THIRD GENERATION (test code 0.862 UIU/ML = 2821) THYROID II PROFILE (T3U, T4, T7, TSH)2019-08-01 00:00:00 Test Item Value Reference Range Interpretation Comments T-UPTAKE (test code = 2817) 27.2 % THYROX. BIND. CAPAC. (test code 1.2 = 33395) T4 (THYROXINE) (test code = 8.4 UG/DL 2819) CORRECTED T4 (FTI) (test code = 7.0 UG/DL 2820) TSH, THIRD GENERATION (test code 0.862 UIU/ML = 2821) THYROID II PROFILE (T3U, T4, T7, TSH)2019-08-01 00:00:00 Test Item Value Reference Range Interpretation Comments T-UPTAKE (test code = 2817) 27.2 % THYROX. BIND. CAPAC. (test code 1.2 = 06681) T4 (THYROXINE) (test code = 8.4 UG/DL 2819) CORRECTED T4 (FTI) (test code = 7.0 UG/DL 2820) TSH, THIRD GENERATION (test code 0.862 UIU/ML = 2821) THYROID II PROFILE (T3U, T4, T7, TSH)2019-08-01 00:00:00 Test Item Value Reference Range Interpretation Comments T-UPTAKE (test code = 2817) 27.2 % THYROX. BIND. CAPAC. (test code 1.2 = 47742) T4 (THYROXINE) (test code = 8.4 UG/DL 2819) CORRECTED T4 (FTI) (test code = 7.0 UG/DL 2820) TSH, THIRD GENERATION (test code 0.862 UIU/ML = 2821) THYROID II PROFILE (T3U, T4, T7, TSH)2019-08-01 00:00:00 Test Item Value Reference Range Interpretation Comments T-UPTAKE (test code = 2817) 27.2 % THYROX. BIND. CAPAC. (test code 1.2 = 91862) T4 (THYROXINE) (test code = 8.4 UG/DL 2819) CORRECTED T4 (FTI) (test code = 7.0 UG/DL 2820) TSH, THIRD GENERATION (test code 0.862 UIU/ML = 2821) THYROID II PROFILE (T3U, T4, T7, TSH)2019-08-01 00:00:00 Test Item Value Reference Range Interpretation Comments T-UPTAKE (test code = 2817) 27.2 % THYROX. BIND. CAPAC. (test code 1.2 = 27428) T4 (THYROXINE) (test code = 8.4 UG/DL 2819) CORRECTED T4 (FTI) (test code = 7.0 UG/DL 2820) TSH, THIRD GENERATION (test code 0.862 UIU/ML = 2821) THYROID II PROFILE (T3U, T4, T7, TSH)2019-08-01 00:00:00 Test Item Value Reference Range Interpretation Comments T-UPTAKE (test code = 2817) 27.2 % THYROX. BIND. CAPAC. (test code 1.2 = 75412) T4 (THYROXINE) (test code = 8.4 UG/DL 2819) CORRECTED T4 (FTI) (test code = 7.0 UG/DL 2820) TSH, THIRD GENERATION (test code 0.862 UIU/ML = 2821) [id number] 22:31:00 Test Item Value Reference Range Interpretation Comments CDC HIV 4th GEN (test Negative *NA*(03/29/18 code = CDC HIV 4th 4:31 PM) GEN) [facility] [id number] 22:31:00 Test Item Value Reference Range Interpretation Comments CDC HIV 4th GEN (test Negative *NA*(03/29/18 code = CDC HIV 4th 4:31 PM) GEN) [facility] [id number] 22:31:00 Test Item Value Reference Range Interpretation Comments CDC HIV 4th GEN (test Negative *NA*(03/29/18 code = CDC HIV 4th 4:31 PM) GEN) [facility] QjkcfxlZOLLDEYFUO2707-94-96 22:31:00 Test Item Value Reference Range Interpretation Comments CDC HIV 4th GEN (test Negative *NA*(03/29/18 code = CDC HIV 4th 4:31 PM) GEN) [facility]annCARD[facility]AC [id number] 21:03:00 Test Item Value Reference Range Interpretation Comments Troponin-I (test code no gt See_Comment [Auto mated message] The = Troponin-I) system which g enerated this result transmit kuldip reference range : <=0.40. The reference r nilam was not used to interpr et this result as abiodun l/abnormal. [facility]KvlqtglUNCSXFPRATOY4102-60-18 21:03:00 Test Item Value Reference Range Interpretation Comments AGAP (test code = AGAP) 14.2 10.0-20.0 [facility] HealthIoieuowVKDNQIMCOENC5562-83-69 21:03:00 Test Item Value Reference Range Interpretation Comments Calcium Lvl (test code = Calcium Lvl) 11.2 8.5-10.5 [facility] HealthFaaafbnJMYHMOIMXAGF2535-07-93 21:03:00 Test Item Value Reference Range Interpretation Comments Potassium Lvl (test code = Potassium 4.2 3.5-5.1 Lvl) [facility] HealthHsvmcqzWDSTPYXFLLOM8632-47-78 21:03:00 Test Item Value Reference Range Interpretation Comments Sodium Lvl (test code = Sodium Lvl) 139 135-145 [facility] HealthWkstndpCPENNGMSGXSN0765-56-38 21:03:00 Test Item Value Reference Range Interpretation Comments CO2 (test code = CO2) 27 24-32 [facility] HealthCcayohtALLXGKXHNZCP8748-31-75 21:03:00 Test Item Value Reference Range Interpretation Comments Chloride Lvl (test code = Chloride Lvl) 102 95-109 [facility] HealthIwnjmvfNBIMXGHNFKOI3513-71-52 21:03:00 Test Item Value Reference Range Interpretation Comments Creatinine Lvl (test code = Creatinine 0.90 0.50-1.40 Lvl) [facility] HealthPnwwnsvRTIJAAJLIWBL8790-14-30 21:03:00 Test Item Value Reference Range Interpretation Comments BUN (test code = BUN) 11 7-22 [facility] HealthAwsjlvbLRHRDJYMJSOH7823-28-39 21:03:00 Test Item Value Reference Range Interpretation Comments Glucose Lvl (test code = Glucose Lvl) 97 70-99 [facility] HealthIrqjxfqDOVJOEEZNKZN4065-02-51 21:03:00 Test Item Value Reference Range Interpretation Comments eGFR (test code = eGFR) 79 [facility]YmrfxwbIUJCYDSZZS0670-10-69 21:03:00 Test Item Value Reference Range Interpretation Comments Hgb (test code = Hgb) 14.1 12.0-16.0 [facility]WbmbefpKVKLEZNAJV7440-25-64 21:03:00 Test Item Value Reference Range Interpretation Comments MCV (test code = MCV) 89.6 80.0-98.0 [facility]QsfamxiKTVWBCYQWS0846-81-32 21:03:00 Test Item Value Reference Range Interpretation Comments Hct (test code = Hct) 42.0 36.0-48.0 [facility]ZdpaekuGCRTMNWOAX3916-43-24 21:03:00 Test Item Value Reference Range Interpretation Comments MPV (test code = MPV) 8.4 7.4-10.4 [facility]OgndvjhGITHZBTWHK0005-95-52 21:03:00 Test Item Value Reference Range Interpretation Comments WBC (test code = WBC) 6.4 3.7-10.4 [facility]JxrrehjREHEYHSOJO4699-88-50 21:03:00 Test Item Value Reference Range Interpretation Comments RBC (test code = RBC) 4.68 4.20-5.40 [facility]BaetdzmQIUJCKSXBE4607-08-44 21:03:00 Test Item Value Reference Range Interpretation Comments RDW (test code = RDW) 12.9 11.5-14.5 [facility]TfytgzoDRHJLTMGTW8182-54-87 21:03:00 Test Item Value Reference Range Interpretation Comments MCH (test code = MCH) 30.1 pg 27.0-31.0 [facility]EvoognkGPQWFSDIEP3233-23-42 21:03:00 Test Item Value Reference Range Interpretation Comments MCHC (test code = MCHC) 33.6 32.0-36.0 [facility] HospitalRxipnzfAAIXMBCIRY6321-93-63 21:03:00 Test Item Value Reference Range Interpretation Comments Platelet (test code = Platelet) 221 133-450 [facility] [id number] 21:03:00 Test Item Value Reference Range Interpretation Comments Troponin-I (test code no gt See_Comment [Auto mated message] The = Troponin-I) system which g enerated this result transmit kuldip reference range : <=0.40. The reference r nilam was not used to interpr et this result as abiodun l/abnormal. [facility] HospitalIgomytkQNNLZEQBLPDT6209-87-68 21:03:00 Test Item Value Reference Range Interpretation Comments AGAP (test code = AGAP) 14.2 10.0-20.0 [facility] Health[id number] 21:03:00 Test Item Value Reference Range Interpretation Comments Calcium Lvl (test code = Calcium Lvl) 11.2 8.5-10.5 [facility] HealthWyvmmagMTUNJCNINLNP0786-45-59 21:03:00 Test Item Value Reference Range Interpretation Comments Potassium Lvl (test code = Potassium 4.2 3.5-5.1 Lvl) [facility] HealthZvbftmbKPELLWGSMRWL2674-94-12 21:03:00 Test Item Value Reference Range Interpretation Comments Sodium Lvl (test code = Sodium Lvl) 139 135-145 [facility] HealthXxyhwyzBMEWGOKNEMKF9065-80-31 21:03:00 Test Item Value Reference Range Interpretation Comments CO2 (test code = CO2) 27 24-32 [facility] HealthByhruetUJZTPKGBTDNN4472-18-96 21:03:00 Test Item Value Reference Range Interpretation Comments Chloride Lvl (test code = Chloride Lvl) 102 95-109 [facility] HealthHvyrzlpCELBIQTRPMQT1051-39-34 21:03:00 Test Item Value Reference Range Interpretation Comments Creatinine Lvl (test code = Creatinine 0.90 0.50-1.40 Lvl) [facility] HealthMzytyqfQVNCZHRGEZOA3707-58-72 21:03:00 Test Item Value Reference Range Interpretation Comments BUN (test code = BUN) 11 7-22 [facility] HealthFtnrjlqZMNSLFQOKJJB3490-65-52 21:03:00 Test Item Value Reference Range Interpretation Comments Glucose Lvl (test code = Glucose Lvl) 97 70-99 [facility] HealthLwkaxpbCWMZTUZFZCXZ9398-48-91 21:03:00 Test Item Value Reference Range Interpretation Comments eGFR (test code = eGFR) 79 [facility] SystemKrlrvumOLCRTIZVTD1720-03-41 21:03:00 Test Item Value Reference Range Interpretation Comments Hgb (test code = Hgb) 14.1 12.0-16.0 [facility] SystemPuvvvhkUTZYMSHELR2913-05-89 21:03:00 Test Item Value Reference Range Interpretation Comments MCV (test code = MCV) 89.6 80.0-98.0 [facility] SystemHompmtwZDTXDCAASQ1011-99-06 21:03:00 Test Item Value Reference Range Interpretation Comments Hct (test code = Hct) 42.0 36.0-48.0 [facility] SystemErukbriAXIHONBTUU6885-26-33 21:03:00 Test Item Value Reference Range Interpretation Comments MPV (test code = MPV) 8.4 7.4-10.4 [facility] HospitalTezdxydKRHXCRDUTA0031-88-87 21:03:00 Test Item Value Reference Range Interpretation Comments WBC (test code = WBC) 6.4 3.7-10.4 [facility] HospitalTaokiftPWKDKHKUPT9019-01-33 21:03:00 Test Item Value Reference Range Interpretation Comments RBC (test code = RBC) 4.68 4.20-5.40 [facility] HospitalJrnacjkFGVHZFLFRZ2614-54-05 21:03:00 Test Item Value Reference Range Interpretation Comments RDW (test code = RDW) 12.9 11.5-14.5 [facility] HospitalDbhsptsJDJBUSVBJB1943-45-61 21:03:00 Test Item Value Reference Range Interpretation Comments MCH (test code = MCH) 30.1 pg 27.0-31.0 [facility] HospitalMyxguyxSUMPBPNADM4163-86-86 21:03:00 Test Item Value Reference Range Interpretation Comments MCHC (test code = MCHC) 33.6 32.0-36.0 [facility] HospitalHtcjmunDVVDDBAQNS8918-06-82 21:03:00 Test Item Value Reference Range Interpretation Comments Platelet (test code = Platelet) 221 133-450 [facility] HospitalGCW LRFWAMH4107-30-14 21:03:00 Test Item Value Reference Range Interpretation Comments Troponin-I (test code no gt See_Comment [Auto mated message] The = Troponin-I) system which g enerated this result transmit kuldip reference range : <=0.40. The reference r nilam was not used to interpr et this result as abiodun l/abnormal. [facility] YhphemlVMOZIAYSXPRP5595-12-96 21:03:00 Test Item Value Reference Range Interpretation Comments AGAP (test code = AGAP) 14.2 10.0-20.0 [facility] HospitalVyxtocsKOIRQOWLDZAI9340-36-91 21:03:00 Test Item Value Reference Range Interpretation Comments Calcium Lvl (test code = Calcium Lvl) 11.2 8.5-10.5 [facility] HospitalBitLitCARVisual NetworksAC EHCUHDV7749-12-75 21:03:00 Test Item Value Reference Range Interpretation Comments Troponin-I (test code no gt See_Comment [Auto mated message] The = Troponin-I) system which g enerated this result transmit kuldip reference range : <=0.40. The reference r nilam was not used to interpr et this result as abiodun l/abnormal. [facility] HealthPtlmworOSKBSBQOSKLF8750-14-11 21:03:00 Test Item Value Reference Range Interpretation Comments AGAP (test code = AGAP) 14.2 10.0-20.0 [facility] HealthFthaigbPTETJJOOFZEM3986-54-73 21:03:00 Test Item Value Reference Range Interpretation Comments Calcium Lvl (test code = Calcium Lvl) 11.2 8.5-10.5 [facility] HealthKbzbgesZOBSVPHPHTVQ8343-95-12 21:03:00 Test Item Value Reference Range Interpretation Comments Potassium Lvl (test code = Potassium 4.2 3.5-5.1 Lvl) [facility] HealthCpkyjwsKHTKXTLNDWBY5483-73-69 21:03:00 Test Item Value Reference Range Interpretation Comments Sodium Lvl (test code = Sodium Lvl) 139 135-145 [facility] HealthVgpcaakLXVMUKHNINEE4009-69-31 21:03:00 Test Item Value Reference Range Interpretation Comments CO2 (test code = CO2) 27 24-32 [facility] HealthQbzdsxnGCDXOCQRHUGQ7852-04-62 21:03:00 Test Item Value Reference Range Interpretation Comments Chloride Lvl (test code = Chloride Lvl) 102 95-109 [facility] HealthEbnapgeUXMWUENFSPCG5000-37-29 21:03:00 Test Item Value Reference Range Interpretation Comments Creatinine Lvl (test code = Creatinine 0.90 0.50-1.40 Lvl) [facility] HealthMudqdsvGHSHXQEEYACP4648-99-97 21:03:00 Test Item Value Reference Range Interpretation Comments BUN (test code = BUN) 11 7-22 [facility] HealthKcrszhzSJLGOWWQRTPB7738-02-80 21:03:00 Test Item Value Reference Range Interpretation Comments Potassium Lvl (test code = Potassium 4.2 3.5-5.1 Lvl) [facility] HealthKefjukgHIZOXUUOTVBM2545-56-91 21:03:00 Test Item Value Reference Range Interpretation Comments Glucose Lvl (test code = Glucose Lvl) 97 70-99 [facility] HealthGploxdrBRWPUXRTFQJM2742-91-39 21:03:00 Test Item Value Reference Range Interpretation Comments eGFR (test code = eGFR) 79 [facility] CenterLklfhxdETNNDHAICM5222-73-17 21:03:00 Test Item Value Reference Range Interpretation Comments Hgb (test code = Hgb) 14.1 12.0-16.0 [facility] SystemCcrtsdvCEJZXLNNAK0257-81-92 21:03:00 Test Item Value Reference Range Interpretation Comments MCV (test code = MCV) 89.6 80.0-98.0 [facility] SystemZtdkttnPQAFFYCXBP1422-28-45 21:03:00 Test Item Value Reference Range Interpretation Comments Hct (test code = Hct) 42.0 36.0-48.0 [facility] SystemYijwirjDCZZYOCNCV9622-05-00 21:03:00 Test Item Value Reference Range Interpretation Comments MPV (test code = MPV) 8.4 7.4-10.4 [facility] SystemNlihvbnCADJZISNUK0274-72-94 21:03:00 Test Item Value Reference Range Interpretation Comments WBC (test code = WBC) 6.4 3.7-10.4 [facility] SystemShlnoosAHYCLXEIMJ6631-60-15 21:03:00 Test Item Value Reference Range Interpretation Comments RBC (test code = RBC) 4.68 4.20-5.40 [facility] SystemPbbqmqsWUIZEKERNW6820-25-92 21:03:00 Test Item Value Reference Range Interpretation Comments RDW (test code = RDW) 12.9 11.5-14.5 [facility] SystemLggkpkoEDDDSITRBL4610-54-05 21:03:00 Test Item Value Reference Range Interpretation Comments MCH (test code = MCH) 30.1 pg 27.0-31.0 [facility] HealthJookmxkCFNDWXXEYJDG5572-15-84 21:03:00 Test Item Value Reference Range Interpretation Comments Sodium Lvl (test code = Sodium Lvl) 139 135-145 [facility] SystemPhrpoyiJUKHIBCJYE6477-22-16 21:03:00 Test Item Value Reference Range Interpretation Comments MCHC (test code = MCHC) 33.6 32.0-36.0 [facility] SystemGhaufdfEAKQJKRUEF9821-69-99 21:03:00 Test Item Value Reference Range Interpretation Comments Platelet (test code = Platelet) 221 133-450 [facility] HealthXakazkuFAAILDCTAZLV7621-96-85 21:03:00 Test Item Value Reference Range Interpretation Comments CO2 (test code = CO2) 27 24-32 [facility] HealthDhaklnoNBDZIBPZWGQX1233-85-88 21:03:00 Test Item Value Reference Range Interpretation Comments Chloride Lvl (test code = Chloride Lvl) 102 95-109 [facility] HealthZpaiorcWQORNWLYSRLB8401-68-67 21:03:00 Test Item Value Reference Range Interpretation Comments Creatinine Lvl (test code = Creatinine 0.90 0.50-1.40 Lvl) [facility] HealthRakkvbhBBWLOPNIUFMY5804-30-32 21:03:00 Test Item Value Reference Range Interpretation Comments BUN (test code = BUN) 11 7-22 [facility] HealthDterxfoWTHJCAZJVWBY0441-89-56 21:03:00 Test Item Value Reference Range Interpretation Comments Glucose Lvl (test code = Glucose Lvl) 97 70-99 [facility] HealthHlypwprLGFYDNQOPUKW8245-85-51 21:03:00 Test Item Value Reference Range Interpretation Comments eGFR (test code = eGFR) 79 [facility] SystemFmkpomtYWWLDLOJQX9692-54-23 21:03:00 Test Item Value Reference Range Interpretation Comments Hgb (test code = Hgb) 14.1 12.0-16.0 [facility] SystemRwdaqxtPNHZZVRQEQ1088-23-38 21:03:00 Test Item Value Reference Range Interpretation Comments MCV (test code = MCV) 89.6 80.0-98.0 [facility] SystemOqipjshXTOZNOXOPO9884-23-33 21:03:00 Test Item Value Reference Range Interpretation Comments Hct (test code = Hct) 42.0 36.0-48.0 [facility] SystemDrclrtwLWIMGHQOWD8931-51-90 21:03:00 Test Item Value Reference Range Interpretation Comments MPV (test code = MPV) 8.4 7.4-10.4 [facility] SystemMdwwuosYWMXMNMTDB8758-53-22 21:03:00 Test Item Value Reference Range Interpretation Comments WBC (test code = WBC) 6.4 3.7-10.4 [facility] SystemZrrrqmhQVTCIBAXIG7412-87-74 21:03:00 Test Item Value Reference Range Interpretation Comments RBC (test code = RBC) 4.68 4.20-5.40 [facility] SystemYguquudZHTUQOKRNF3954-21-22 21:03:00 Test Item Value Reference Range Interpretation Comments RDW (test code = RDW) 12.9 11.5-14.5 [facility] SystemKosjwnpHOLTQPLKCX8029-58-94 21:03:00 Test Item Value Reference Range Interpretation Comments MCH (test code = MCH) 30.1 pg 27.0-31.0 [facility] SystemXnjqrakXETSAVHIWC3827-56-70 21:03:00 Test Item Value Reference Range Interpretation Comments MCHC (test code = MCHC) 33.6 32.0-36.0 [facility] SystemMaejmtbATLQNEHBMB8391-87-21 21:03:00 Test Item Value Reference Range Interpretation Comments Platelet (test code = Platelet) 221 133-450 [facility] CenterLbdmfzkABN9694-69-28 00:00:00 Test Item Value Reference Range Interpretation Comments RPR RESULT (test code = NON-REACTIVE 3501) RPR TITER (test code = 3500) NOT INDIC. TITER [id number] 00:00:00 Test Item Value Reference Range Interpretation Comments RPR RESULT (test code = NON-REACTIVE 3501) RPR TITER (test code = 3500) NOT INDIC. TITER HIV AB/AG COMBO RFLX [id number] 00:00:00 Test Item Value Reference Range Interpretation Comments HIV 1/2 4TH GEN, RFLX CONF (test NON-REACTIVE code = 3514) GC AND CHLAMYDIA, AMPLIFIED, [id number] 00:00:00 Test Item Value Reference Range Interpretation Comments GONORRHEA, TMA (test code = 12640) NEGATIVE CHLAMYDIA, TMA (test code = 99471) NEGATIVE ACUTE HEPATITIS [id number] 00:00:00 Test Item Value Reference Range Interpretation Comments HEPATITIS A IgM (test code = NON-REACTIVE 63659) HEPATITIS B CORE IgM (test code NON-REACTIVE = 4644) HEPATITIS B SURF AG (test code = NON-REACTIVE 2739) HEPATITIS C ANTIBODY (test code NON-REACTIVE = 4675) INTERPRETATION HEPATITIS A: (NOTE) (test code = 2552) INTERPRETATION HEPATITIS B: (NOTE) (test code = 29827) INTERPRETATION HEPATITIS C: (NOTE) (test code = 21932) [id number] 00:00:00 Test Item Value Reference Range Interpretation Comments RPR RESULT (test code = NON-REACTIVE 3501) RPR TITER (test code = 3500) NOT INDIC. TITER [id number] 00:00:00 Test Item Value Reference Range Interpretation Comments RPR RESULT (test code = NON-REACTIVE 3501) RPR TITER (test code = 3500) NOT INDIC. TITER [id number] 00:00:00 Test Item Value Reference Range Interpretation Comments RPR RESULT (test code = NON-REACTIVE 3501) RPR TITER (test code = 3500) NOT INDIC. TITER HIV AB/AG COMBO RFLX [id number] 00:00:00 Test Item Value Reference Range Interpretation Comments HIV 1/2 4TH GEN, RFLX CONF (test NON-REACTIVE code = 3514) [id number] 00:00:00 Test Item Value Reference Range Interpretation Comments RPR RESULT (test code = NON-REACTIVE 3501) RPR TITER (test code = 3500) NOT INDIC. TITER GC AND CHLAMYDIA, AMPLIFIED, [id number] 00:00:00 Test Item Value Reference Range Interpretation Comments GONORRHEA, TMA (test code = 36739) NEGATIVE CHLAMYDIA, TMA (test code = 50927) NEGATIVE ACUTE HEPATITIS [id number] 00:00:00 Test Item Value Reference Range Interpretation Comments HEPATITIS A IgM (test code = NON-REACTIVE 64082) HEPATITIS B CORE IgM (test code NON-REACTIVE = 4644) HEPATITIS B SURF AG (test code = NON-REACTIVE 2739) HEPATITIS C ANTIBODY (test code NON-REACTIVE = 4675) INTERPRETATION HEPATITIS A: (NOTE) (test code = 2552) INTERPRETATION HEPATITIS B: (NOTE) (test code = 33658) INTERPRETATION HEPATITIS C: (NOTE) (test code = 26580) HIV AB/AG COMBO RFLX [id number] 00:00:00 Test Item Value Reference Range Interpretation Comments HIV 1/2 4TH GEN, RFLX CONF (test NON-REACTIVE code = 3514) [id number] 00:00:00 Test Item Value Reference Range Interpretation Comments RPR RESULT (test code = NON-REACTIVE 3501) RPR TITER (test code = 3500) NOT INDIC. TITER [id number] 00:00:00 Test Item Value Reference Range Interpretation Comments RPR RESULT (test code = NON-REACTIVE 3501) RPR TITER (test code = 3500) NOT INDIC. TITER [id number] 00:00:00 Test Item Value Reference Range Interpretation Comments RPR RESULT (test code = NON-REACTIVE 3501) RPR TITER (test code = 3500) NOT INDIC. TITER HIV AB/AG COMBO RFLX [id number] 00:00:00 Test Item Value Reference Range Interpretation Comments HIV 1/2 4TH GEN, RFLX CONF (test NON-REACTIVE code = 3514) GC AND CHLAMYDIA, AMPLIFIED, [id number] 00:00:00 Test Item Value Reference Range Interpretation Comments GONORRHEA, TMA (test code = 32843) NEGATIVE CHLAMYDIA, TMA (test code = 78020) NEGATIVE HIV AB/AG COMBO RFLX [id number] 00:00:00 Test Item Value Reference Range Interpretation Comments HIV 1/2 4TH GEN, RFLX CONF (test NON-REACTIVE code = 3514) GC AND CHLAMYDIA, AMPLIFIED, [id number] 00:00:00 Test Item Value Reference Range Interpretation Comments GONORRHEA, TMA (test code = 42579) NEGATIVE CHLAMYDIA, TMA (test code = 80637) NEGATIVE GC AND CHLAMYDIA, AMPLIFIED, [id number] 00:00:00 Test Item Value Reference Range Interpretation Comments GONORRHEA, TMA (test code = 56477) NEGATIVE CHLAMYDIA, TMA (test code = 18601) NEGATIVE ACUTE HEPATITIS [id number] 00:00:00 Test Item Value Reference Range Interpretation Comments HEPATITIS A IgM (test code = NON-REACTIVE 84571) HEPATITIS B CORE IgM (test code NON-REACTIVE = 4644) HEPATITIS B SURF AG (test code = NON-REACTIVE 2739) HEPATITIS C ANTIBODY (test code NON-REACTIVE = 4675) INTERPRETATION HEPATITIS A: (NOTE) (test code = 2552) INTERPRETATION HEPATITIS B: (NOTE) (test code = 00655) INTERPRETATION HEPATITIS C: (NOTE) (test code = 23520) ACUTE HEPATITIS [id number] 00:00:00 Test Item Value Reference Range Interpretation Comments HEPATITIS A IgM (test code = NON-REACTIVE 24086) HEPATITIS B CORE IgM (test code NON-REACTIVE = 4644) HEPATITIS B SURF AG (test code = NON-REACTIVE 2739) HEPATITIS C ANTIBODY (test code NON-REACTIVE = 4675) INTERPRETATION HEPATITIS A: (NOTE) (test code = 2552) INTERPRETATION HEPATITIS B: (NOTE) (test code = 14533) INTERPRETATION HEPATITIS C: (NOTE) (test code = 81468) ACUTE HEPATITIS [id number] 00:00:00 Test Item Value Reference Range Interpretation Comments HEPATITIS A IgM (test code = NON-REACTIVE 68891) HEPATITIS B CORE IgM (test code NON-REACTIVE = 4644) HEPATITIS B SURF AG (test code = NON-REACTIVE 2739) HEPATITIS C ANTIBODY (test code NON-REACTIVE = 4675) INTERPRETATION HEPATITIS A: (NOTE) (test code = 2552) INTERPRETATION HEPATITIS B: (NOTE) (test code = 84192) INTERPRETATION HEPATITIS C: (NOTE) (test code = 62424) [id number] 00:00:00 Test Item Value Reference Range Interpretation Comments RPR RESULT (test code = NON-REACTIVE 3501) RPR TITER (test code = 3500) NOT INDIC. TITER [id number] 00:00:00 Test Item Value Reference Range Interpretation Comments RPR RESULT (test code = NON-REACTIVE 3501) RPR TITER (test code = 3500) NOT INDIC. TITER [id number] 00:00:00 Test Item Value Reference Range Interpretation Comments RPR RESULT (test code = NON-REACTIVE 3501) RPR TITER (test code = 3500) NOT INDIC. TITER HIV AB/AG COMBO RFLX [id number] 00:00:00 Test Item Value Reference Range Interpretation Comments HIV 1/2 4TH GEN, RFLX CONF (test NON-REACTIVE code = 3514) HIV AB/AG COMBO RFLX [id number] 00:00:00 Test Item Value Reference Range Interpretation Comments HIV 1/2 4TH GEN, RFLX CONF (test NON-REACTIVE code = 3514) GC AND CHLAMYDIA, AMPLIFIED, [id number] 00:00:00 Test Item Value Reference Range Interpretation Comments GONORRHEA, TMA (test code = 19123) NEGATIVE CHLAMYDIA, TMA (test code = 70572) NEGATIVE GC AND CHLAMYDIA, AMPLIFIED, [id number] 00:00:00 Test Item Value Reference Range Interpretation Comments GONORRHEA, TMA (test code = 47141) NEGATIVE CHLAMYDIA, TMA (test code = 75750) NEGATIVE ACUTE HEPATITIS [id number] 00:00:00 Test Item Value Reference Range Interpretation Comments HEPATITIS A IgM (test code = NON-REACTIVE 58904) HEPATITIS B CORE IgM (test code NON-REACTIVE = 4644) HEPATITIS B SURF AG (test code = NON-REACTIVE 4969) HEPATITIS C ANTIBODY (test code NON-REACTIVE = 4675) INTERPRETATION HEPATITIS A: (NOTE) (test code = 2552) INTERPRETATION HEPATITIS B: (NOTE) (test code = 86575) INTERPRETATION HEPATITIS C: (NOTE) (test code = 87197) ACUTE HEPATITIS [id number] 00:00:00 Test Item Value Reference Range Interpretation Comments HEPATITIS A IgM (test code = NON-REACTIVE 97812) HEPATITIS B CORE IgM (test code NON-REACTIVE = 1633) HEPATITIS B SURF AG (test code = NON-REACTIVE 3074) HEPATITIS C ANTIBODY (test code NON-REACTIVE = 8680) INTERPRETATION HEPATITIS A: (NOTE) (test code = 2552) INTERPRETATION HEPATITIS B: (NOTE) (test code = 15546) INTERPRETATION HEPATITIS C: (NOTE) (test code = 78731) COMPREHENSIVE METABOLIC [id number] 00:00:00 Test Item Value Reference Range Interpretation Comments GLUCOSE (test code = 2217) 120 MG/DL BUN (test code = 2208) 9 MG/DL CREATININE (test code = 2214) 0.72 MG/DL eGFR AMER. (test code 120 ML/MIN/1.73 = 94960) eGFR NON- AMER. (test 103 ML/MIN/1.73 code = 63717) CALC BUN/CREAT (test code = 13 RATIO 2235) SODIUM (test code = 2231) 140 MEQ/L POTASSIUM (test code = 2228) 4.3 MEQ/L CHLORIDE (test code = 2215) 100 MEQ/L CARBON DIOXIDE (test code = 29 MEQ/L 6) CALCIUM (test code = 2209) 10.6 MG/DL PROTEIN, TOTAL (test code = 8.2 G/DL 2228) ALBUMIN (test code = 2201) 4.3 G/DL CALC GLOBULIN (test code = 3.9 G/DL 2240) CALC A/G RATIO (test code = 1.1 RATIO 4) BILIRUBIN, TOTAL (test code = 0.3 MG/DL 2206) ALKALINE PHOSPHATASE (test 93 U/L code = 2204) AST (test code = 2218) 20 U/L ALT (test code = 2219) 25 U/L CBC W/AUTO [id number] 00:00:00 Test Item Value Reference Range Interpretation Comments WBC (test code = 1001) 6.4 K/UL RBC (test code = 1002) 4.56 M/UL HEMOGLOBIN (test code = 1003) 13.7 G/DL HEMATOCRIT (test code = 1004) 40.1 % MCV (test code = 1005) 87.9 fL MCH (test code = 1006) 30.0 PG MCHC (test code = 1007) 34.2 G/DL RDW (test code = 1038) 12.8 % NEUTROPHILS (test code = 1008) 62.2 % LYMPHOCYTES (test code = 1010) 27.8 % MONOCYTES (test code = 1011) 7.8 % EOSINOPHILS (test code = 1012) 1.9 % BASOPHILS (test code = 1013) 0.3 % PLATELET COUNT (test code = 1015) 215 K/UL CBC W/AUTO [id number] 00:00:00 Test Item Value Reference Range Interpretation Comments WBC (test code = 1001) 6.4 K/UL RBC (test code = 1002) 4.56 M/UL HEMOGLOBIN (test code = 1003) 13.7 G/DL HEMATOCRIT (test code = 1004) 40.1 % MCV (test code = 1005) 87.9 fL MCH (test code = 1006) 30.0 PG MCHC (test code = 1007) 34.2 G/DL RDW (test code = 1038) 12.8 % NEUTROPHILS (test code = 1008) 62.2 % LYMPHOCYTES (test code = 1010) 27.8 % MONOCYTES (test code = 1011) 7.8 % EOSINOPHILS (test code = 1012) 1.9 % BASOPHILS (test code = 1013) 0.3 % PLATELET COUNT (test code = 1015) 215 K/UL COMPREHENSIVE METABOLIC [id number] 00:00:00 Test Item Value Reference Range Interpretation Comments GLUCOSE (test code = 2217) 120 MG/DL BUN (test code = 2208) 9 MG/DL CREATININE (test code = 2214) 0.72 MG/DL eGFR AMER. (test code 120 ML/MIN/1.73 = 90571) eGFR NON- AMER. (test 103 ML/MIN/1.73 code = 55265) CALC BUN/CREAT (test code = 13 RATIO 2235) SODIUM (test code = 2231) 140 MEQ/L POTASSIUM (test code = 2228) 4.3 MEQ/L CHLORIDE (test code = 2215) 100 MEQ/L CARBON DIOXIDE (test code = 29 MEQ/L 2206) CALCIUM (test code = 2209) 10.6 MG/DL PROTEIN, TOTAL (test code = 8.2 G/DL 2228) ALBUMIN (test code = 2201) 4.3 G/DL CALC GLOBULIN (test code = 3.9 G/DL 2240) CALC A/G RATIO (test code = 1.1 RATIO 2234) BILIRUBIN, TOTAL (test code = 0.3 MG/DL 2206) ALKALINE PHOSPHATASE (test 93 U/L code = 2204) AST (test code = 2218) 20 U/L ALT (test code = 2219) 25 U/L COMPREHENSIVE METABOLIC [id number] 00:00:00 Test Item Value Reference Range Interpretation Comments GLUCOSE (test code = 2217) 120 MG/DL BUN (test code = 2208) 9 MG/DL CREATININE (test code = 2214) 0.72 MG/DL eGFR AMER. (test code 120 ML/MIN/1.73 = 45587) eGFR NON- AMER. (test 103 ML/MIN/1.73 code = 40181) CALC BUN/CREAT (test code = 13 RATIO 2235) SODIUM (test code = 2231) 140 MEQ/L POTASSIUM (test code = 2228) 4.3 MEQ/L CHLORIDE (test code = 2215) 100 MEQ/L CARBON DIOXIDE (test code = 29 MEQ/L 2205) CALCIUM (test code = 2209) 10.6 MG/DL PROTEIN, TOTAL (test code = 8.2 G/DL 2228) ALBUMIN (test code = 2201) 4.3 G/DL CALC GLOBULIN (test code = 3.9 G/DL 2240) CALC A/G RATIO (test code = 1.1 RATIO 2234) BILIRUBIN, TOTAL (test code = 0.3 MG/DL 2206) ALKALINE PHOSPHATASE (test 93 U/L code = 2204) AST (test code = 2218) 20 U/L ALT (test code = 2219) 25 U/L CBC W/AUTO [id number] 00:00:00 Test Item Value Reference Range Interpretation Comments WBC (test code = 1001) 6.4 K/UL RBC (test code = 1002) 4.56 M/UL HEMOGLOBIN (test code = 1003) 13.7 G/DL HEMATOCRIT (test code = 1004) 40.1 % MCV (test code = 1005) 87.9 fL MCH (test code = 1006) 30.0 PG MCHC (test code = 1007) 34.2 G/DL RDW (test code = 1038) 12.8 % NEUTROPHILS (test code = 1008) 62.2 % LYMPHOCYTES (test code = 1010) 27.8 % MONOCYTES (test code = 1011) 7.8 % EOSINOPHILS (test code = 1012) 1.9 % BASOPHILS (test code = 1013) 0.3 % PLATELET COUNT (test code = 1015) 215 K/UL CBC W/AUTO [id number] 00:00:00 Test Item Value Reference Range Interpretation Comments WBC (test code = 1001) 6.4 K/UL RBC (test code = 1002) 4.56 M/UL HEMOGLOBIN (test code = 1003) 13.7 G/DL HEMATOCRIT (test code = 1004) 40.1 % MCV (test code = 1005) 87.9 fL MCH (test code = 1006) 30.0 PG MCHC (test code = 1007) 34.2 G/DL RDW (test code = 1038) 12.8 % NEUTROPHILS (test code = 1008) 62.2 % LYMPHOCYTES (test code = 1010) 27.8 % MONOCYTES (test code = 1011) 7.8 % EOSINOPHILS (test code = 1012) 1.9 % BASOPHILS (test code = 1013) 0.3 % PLATELET COUNT (test code = 1015) 215 K/UL CBC W/AUTO [id number] 00:00:00 Test Item Value Reference Range Interpretation Comments WBC (test code = 1001) 6.4 K/UL RBC (test code = 1002) 4.56 M/UL HEMOGLOBIN (test code = 1003) 13.7 G/DL HEMATOCRIT (test code = 1004) 40.1 % MCV (test code = 1005) 87.9 fL MCH (test code = 1006) 30.0 PG MCHC (test code = 1007) 34.2 G/DL RDW (test code = 1038) 12.8 % NEUTROPHILS (test code = 1008) 62.2 % LYMPHOCYTES (test code = 1010) 27.8 % MONOCYTES (test code = 1011) 7.8 % EOSINOPHILS (test code = 1012) 1.9 % BASOPHILS (test code = 1013) 0.3 % PLATELET COUNT (test code = 1015) 215 K/UL CBC W/AUTO [id number] 00:00:00 Test Item Value Reference Range Interpretation Comments WBC (test code = 1001) 6.4 K/UL RBC (test code = 1002) 4.56 M/UL HEMOGLOBIN (test code = 1003) 13.7 G/DL HEMATOCRIT (test code = 1004) 40.1 % MCV (test code = 1005) 87.9 fL MCH (test code = 1006) 30.0 PG MCHC (test code = 1007) 34.2 G/DL RDW (test code = 1038) 12.8 % NEUTROPHILS (test code = 1008) 62.2 % LYMPHOCYTES (test code = 1010) 27.8 % MONOCYTES (test code = 1011) 7.8 % EOSINOPHILS (test code = 1012) 1.9 % BASOPHILS (test code = 1013) 0.3 % PLATELET COUNT (test code = 1015) 215 K/UL COMPREHENSIVE METABOLIC [id number] 00:00:00 Test Item Value Reference Range Interpretation Comments GLUCOSE (test code = 2217) 120 MG/DL BUN (test code = 2208) 9 MG/DL CREATININE (test code = 2214) 0.72 MG/DL eGFR AMER. (test code 120 ML/MIN/1.73 = 23224) eGFR NON- AMER. (test 103 ML/MIN/1.73 code = 71530) CALC BUN/CREAT (test code = 13 RATIO 2235) SODIUM (test code = 2231) 140 MEQ/L POTASSIUM (test code = 2228) 4.3 MEQ/L CHLORIDE (test code = 2215) 100 MEQ/L CARBON DIOXIDE (test code = 29 MEQ/L 2206) CALCIUM (test code = 2209) 10.6 MG/DL PROTEIN, TOTAL (test code = 8.2 G/DL 2228) ALBUMIN (test code = 2201) 4.3 G/DL CALC GLOBULIN (test code = 3.9 G/DL 2240) CALC A/G RATIO (test code = 1.1 RATIO 2234) BILIRUBIN, TOTAL (test code = 0.3 MG/DL 2206) ALKALINE PHOSPHATASE (test 93 U/L code = 2204) AST (test code = 2218) 20 U/L ALT (test code = 2219) 25 U/L COMPREHENSIVE METABOLIC [id number] 00:00:00 Test Item Value Reference Range Interpretation Comments GLUCOSE (test code = 2217) 120 MG/DL BUN (test code = 2208) 9 MG/DL CREATININE (test code = 2214) 0.72 MG/DL eGFR AMER. (test code 120 ML/MIN/1.73 = 85295) eGFR NON- AMER. (test 103 ML/MIN/1.73 code = 48743) CALC BUN/CREAT (test code = 13 RATIO 2235) SODIUM (test code = 2231) 140 MEQ/L POTASSIUM (test code = 2228) 4.3 MEQ/L CHLORIDE (test code = 2215) 100 MEQ/L CARBON DIOXIDE (test code = 29 MEQ/L 2205) CALCIUM (test code = 2209) 10.6 MG/DL PROTEIN, TOTAL (test code = 8.2 G/DL 2228) ALBUMIN (test code = 2201) 4.3 G/DL CALC GLOBULIN (test code = 3.9 G/DL 2239) CALC A/G RATIO (test code = 1.1 RATIO 2233) BILIRUBIN, TOTAL (test code = 0.3 MG/DL 2206) ALKALINE PHOSPHATASE (test 93 U/L code = 2204) AST (test code = 2218) 20 U/L ALT (test code = 2219) 25 U/L CBC W/AUTO [id number] 00:00:00 Test Item Value Reference Range Interpretation Comments WBC (test code = 1001) 6.4 K/UL RBC (test code = 1002) 4.56 M/UL HEMOGLOBIN (test code = 1003) 13.7 G/DL HEMATOCRIT (test code = 1004) 40.1 % MCV (test code = 1005) 87.9 fL MCH (test code = 1006) 30.0 PG MCHC (test code = 1007) 34.2 G/DL RDW (test code = 1038) 12.8 % NEUTROPHILS (test code = 1008) 62.2 % LYMPHOCYTES (test code = 1010) 27.8 % MONOCYTES (test code = 1011) 7.8 % EOSINOPHILS (test code = 1012) 1.9 % BASOPHILS (test code = 1013) 0.3 % PLATELET COUNT (test code = 1015) 215 K/UL CBC W/AUTO [id number] 00:00:00 Test Item Value Reference Range Interpretation Comments WBC (test code = 1001) 6.4 K/UL RBC (test code = 1002) 4.56 M/UL HEMOGLOBIN (test code = 1003) 13.7 G/DL HEMATOCRIT (test code = 1004) 40.1 % MCV (test code = 1005) 87.9 fL MCH (test code = 1006) 30.0 PG MCHC (test code = 1007) 34.2 G/DL RDW (test code = 1038) 12.8 % NEUTROPHILS (test code = 1008) 62.2 % LYMPHOCYTES (test code = 1010) 27.8 % MONOCYTES (test code = 1011) 7.8 % EOSINOPHILS (test code = 1012) 1.9 % BASOPHILS (test code = 1013) 0.3 % PLATELET COUNT (test code = 1015) 215 K/UL CBC W/AUTO [id number] 00:00:00 Test Item Value Reference Range Interpretation Comments WBC (test code = 1001) 6.4 K/UL RBC (test code = 1002) 4.56 M/UL HEMOGLOBIN (test code = 1003) 13.7 G/DL HEMATOCRIT (test code = 1004) 40.1 % MCV (test code = 1005) 87.9 fL MCH (test code = 1006) 30.0 PG MCHC (test code = 1007) 34.2 G/DL RDW (test code = 1038) 12.8 % NEUTROPHILS (test code = 1008) 62.2 % LYMPHOCYTES (test code = 1010) 27.8 % MONOCYTES (test code = 1011) 7.8 % EOSINOPHILS (test code = 1012) 1.9 % BASOPHILS (test code = 1013) 0.3 % PLATELET COUNT (test code = 1015) 215 K/UL COMPREHENSIVE METABOLIC [id number] 00:00:00 Test Item Value Reference Range Interpretation Comments GLUCOSE (test code = 2217) 120 MG/DL BUN (test code = 2208) 9 MG/DL CREATININE (test code = 2214) 0.72 MG/DL eGFR AMER. (test code 120 ML/MIN/1.73 = 19052) eGFR NON- AMER. (test 103 ML/MIN/1.73 code = 18188) CALC BUN/CREAT (test code = 13 RATIO 2235) SODIUM (test code = 2231) 140 MEQ/L POTASSIUM (test code = 2228) 4.3 MEQ/L CHLORIDE (test code = 2215) 100 MEQ/L CARBON DIOXIDE (test code = 29 MEQ/L 220) CALCIUM (test code = 2209) 10.6 MG/DL PROTEIN, TOTAL (test code = 8.2 G/DL 222) ALBUMIN (test code = 2201) 4.3 G/DL CALC GLOBULIN (test code = 3.9 G/DL 2240) CALC A/G RATIO (test code = 1.1 RATIO 2234) BILIRUBIN, TOTAL (test code = 0.3 MG/DL 2206) ALKALINE PHOSPHATASE (test 93 U/L code = 2204) AST (test code = 2218) 20 U/L ALT (test code = 2219) 25 U/L COMPREHENSIVE METABOLIC [id number] 00:00:00 Test Item Value Reference Range Interpretation Comments GLUCOSE (test code = 2217) 120 MG/DL BUN (test code = 2208) 9 MG/DL CREATININE (test code = 2214) 0.72 MG/DL eGFR AMER. (test code 120 ML/MIN/1.73 = 76723) eGFR NON- AMER. (test 103 ML/MIN/1.73 code = 16223) CALC BUN/CREAT (test code = 13 RATIO 2235) SODIUM (test code = 2231) 140 MEQ/L POTASSIUM (test code = 2228) 4.3 MEQ/L CHLORIDE (test code = 2215) 100 MEQ/L CARBON DIOXIDE (test code = 29 MEQ/L 2205) CALCIUM (test code = 2209) 10.6 MG/DL PROTEIN, TOTAL (test code = 8.2 G/DL 2228) ALBUMIN (test code = 2201) 4.3 G/DL CALC GLOBULIN (test code = 3.9 G/DL 2240) CALC A/G RATIO (test code = 1.1 RATIO 2234) BILIRUBIN, TOTAL (test code = 0.3 MG/DL 2206) ALKALINE PHOSPHATASE (test 93 U/L code = 2204) AST (test code = 2218) 20 U/L ALT (test code = 2219) 25 U/L CBC W/AUTO [id number] 00:00:00 Test Item Value Reference Range Interpretation Comments WBC (test code = 1001) 6.4 K/UL RBC (test code = 1002) 4.56 M/UL HEMOGLOBIN (test code = 1003) 13.7 G/DL HEMATOCRIT (test code = 1004) 40.1 % MCV (test code = 1005) 87.9 fL MCH (test code = 1006) 30.0 PG MCHC (test code = 1007) 34.2 G/DL RDW (test code = 1038) 12.8 % NEUTROPHILS (test code = 1008) 62.2 % LYMPHOCYTES (test code = 1010) 27.8 % MONOCYTES (test code = 1011) 7.8 % EOSINOPHILS (test code = 1012) 1.9 % BASOPHILS (test code = 1013) 0.3 % PLATELET COUNT (test code = 1015) 215 K/UL CBC W/AUTO [id number] 00:00:00 Test Item Value Reference Range Interpretation Comments WBC (test code = 1001) 6.4 K/UL RBC (test code = 1002) 4.56 M/UL HEMOGLOBIN (test code = 1003) 13.7 G/DL HEMATOCRIT (test code = 1004) 40.1 % MCV (test code = 1005) 87.9 fL MCH (test code = 1006) 30.0 PG MCHC (test code = 1007) 34.2 G/DL RDW (test code = 1038) 12.8 % NEUTROPHILS (test code = 1008) 62.2 % LYMPHOCYTES (test code = 1010) 27.8 % MONOCYTES (test code = 1011) 7.8 % EOSINOPHILS (test code = 1012) 1.9 % BASOPHILS (test code = 1013) 0.3 % PLATELET COUNT (test code = 1015) 215 K/UL CBC W/AUTO [id number] 00:00:00 Test Item Value Reference Range Interpretation Comments WBC (test code = 1001) 6.4 K/UL RBC (test code = 1002) 4.56 M/UL HEMOGLOBIN (test code = 1003) 13.7 G/DL HEMATOCRIT (test code = 1004) 40.1 % MCV (test code = 1005) 87.9 fL MCH (test code = 1006) 30.0 PG MCHC (test code = 1007) 34.2 G/DL RDW (test code = 1038) 12.8 % NEUTROPHILS (test code = 1008) 62.2 % LYMPHOCYTES (test code = 1010) 27.8 % MONOCYTES (test code = 1011) 7.8 % EOSINOPHILS (test code = 1012) 1.9 % BASOPHILS (test code = 1013) 0.3 % PLATELET COUNT (test code = 1015) 215 K/UL COMPREHENSIVE METABOLIC [id number] 00:00:00 Test Item Value Reference Range Interpretation Comments GLUCOSE (test code = 2217) 97 MG/DL BUN (test code = 2208) 5 MG/DL CREATININE (test code = 2214) 0.79 MG/DL eGFR AMER. (test code 107 ML/MIN/1.73 = 07030) eGFR NON- AMER. (test 92 ML/MIN/1.73 code = 62304) CALC BUN/CREAT (test code = 6 RATIO 2235) SODIUM (test code = 2231) 138 MEQ/L POTASSIUM (test code = 2228) 4.1 MEQ/L CHLORIDE (test code = 2215) 96 MEQ/L CARBON DIOXIDE (test code = 29 MEQ/L 220) CALCIUM (test code = 2209) 11.9 MG/DL PROTEIN, TOTAL (test code = 8.3 G/DL 2228) ALBUMIN (test code = 2201) 4.6 G/DL CALC GLOBULIN (test code = 3.7 G/DL 0) CALC A/G RATIO (test code = 1.2 RATIO 4) BILIRUBIN, TOTAL (test code = 0.4 MG/DL 2206) ALKALINE PHOSPHATASE (test 87 U/L code = 2204) AST (test code = 2218) 13 U/L ALT (test code = 2219) 14 U/L COMPREHENSIVE METABOLIC [id number] 00:00:00 Test Item Value Reference Range Interpretation Comments GLUCOSE (test code = 2217) 97 MG/DL BUN (test code = 2208) 5 MG/DL CREATININE (test code = 2214) 0.79 MG/DL eGFR AMER. (test code 107 ML/MIN/1.73 = 31817) eGFR NON- AMER. (test 92 ML/MIN/1.73 code = 44689) CALC BUN/CREAT (test code = 6 RATIO 2235) SODIUM (test code = 2231) 138 MEQ/L POTASSIUM (test code = 2228) 4.1 MEQ/L CHLORIDE (test code = 2215) 96 MEQ/L CARBON DIOXIDE (test code = 29 MEQ/L 2206) CALCIUM (test code = 2209) 11.9 MG/DL PROTEIN, TOTAL (test code = 8.3 G/DL 2229) ALBUMIN (test code = 2201) 4.6 G/DL CALC GLOBULIN (test code = 3.7 G/DL 2240) CALC A/G RATIO (test code = 1.2 RATIO 2234) BILIRUBIN, TOTAL (test code = 0.4 MG/DL 2207) ALKALINE PHOSPHATASE (test 87 U/L code = 2204) AST (test code = 2218) 13 U/L ALT (test code = 2219) 14 U/L COMPREHENSIVE METABOLIC [id number] 00:00:00 Test Item Value Reference Range Interpretation Comments GLUCOSE (test code = 2217) 97 MG/DL BUN (test code = 2208) 5 MG/DL CREATININE (test code = 2214) 0.79 MG/DL eGFR AMER. (test code 107 ML/MIN/1.73 = 00871) eGFR NON- AMER. (test 92 ML/MIN/1.73 code = 40528) CALC BUN/CREAT (test code = 6 RATIO 2235) SODIUM (test code = 2231) 138 MEQ/L POTASSIUM (test code = 2228) 4.1 MEQ/L CHLORIDE (test code = 2215) 96 MEQ/L CARBON DIOXIDE (test code = 29 MEQ/L 2205) CALCIUM (test code = 2209) 11.9 MG/DL PROTEIN, TOTAL (test code = 8.3 G/DL 2228) ALBUMIN (test code = 2201) 4.6 G/DL CALC GLOBULIN (test code = 3.7 G/DL 2240) CALC A/G RATIO (test code = 1.2 RATIO 2234) BILIRUBIN, TOTAL (test code = 0.4 MG/DL 7) ALKALINE PHOSPHATASE (test 87 U/L code = 2204) AST (test code = 2218) 13 U/L ALT (test code = 2219) 14 U/L COMPREHENSIVE METABOLIC [id number] 00:00:00 Test Item Value Reference Range Interpretation Comments GLUCOSE (test code = 2217) 97 MG/DL BUN (test code = 2208) 5 MG/DL CREATININE (test code = 2214) 0.79 MG/DL eGFR AMER. (test code 107 ML/MIN/1.73 = 81271) eGFR NON- AMER. (test 92 ML/MIN/1.73 code = 57297) CALC BUN/CREAT (test code = 6 RATIO 2235) SODIUM (test code = 2231) 138 MEQ/L POTASSIUM (test code = 2228) 4.1 MEQ/L CHLORIDE (test code = 2215) 96 MEQ/L CARBON DIOXIDE (test code = 29 MEQ/L 2206) CALCIUM (test code = 2209) 11.9 MG/DL PROTEIN, TOTAL (test code = 8.3 G/DL 2228) ALBUMIN (test code = 2201) 4.6 G/DL CALC GLOBULIN (test code = 3.7 G/DL 2240) CALC A/G RATIO (test code = 1.2 RATIO 2234) BILIRUBIN, TOTAL (test code = 0.4 MG/DL 2206) ALKALINE PHOSPHATASE (test 87 U/L code = 2204) AST (test code = 2218) 13 U/L ALT (test code = 2219) 14 U/L COMPREHENSIVE METABOLIC [id number] 00:00:00 Test Item Value Reference Range Interpretation Comments GLUCOSE (test code = 2217) 97 MG/DL BUN (test code = 2208) 5 MG/DL CREATININE (test code = 2214) 0.79 MG/DL eGFR AMER. (test code 107 ML/MIN/1.73 = 37152) eGFR NON- AMER. (test 92 ML/MIN/1.73 code = 32712) CALC BUN/CREAT (test code = 6 RATIO 2235) SODIUM (test code = 2231) 138 MEQ/L POTASSIUM (test code = 2228) 4.1 MEQ/L CHLORIDE (test code = 2215) 96 MEQ/L CARBON DIOXIDE (test code = 29 MEQ/L 2206) CALCIUM (test code = 2209) 11.9 MG/DL PROTEIN, TOTAL (test code = 8.3 G/DL 2228) ALBUMIN (test code = 2201) 4.6 G/DL CALC GLOBULIN (test code = 3.7 G/DL 2240) CALC A/G RATIO (test code = 1.2 RATIO 2234) BILIRUBIN, TOTAL (test code = 0.4 MG/DL 2206) ALKALINE PHOSPHATASE (test 87 U/L code = 2204) AST (test code = 2218) 13 U/L ALT (test code = 2219) 14 U/L COMPREHENSIVE METABOLIC [id number] 00:00:00 Test Item Value Reference Range Interpretation Comments GLUCOSE (test code = 2217) 97 MG/DL BUN (test code = 2208) 5 MG/DL CREATININE (test code = 2214) 0.79 MG/DL eGFR AMER. (test code 107 ML/MIN/1.73 = 45923) eGFR NON- AMER. (test 92 ML/MIN/1.73 code = 86758) CALC BUN/CREAT (test code = 6 RATIO 2235) SODIUM (test code = 2231) 138 MEQ/L POTASSIUM (test code = 2228) 4.1 MEQ/L CHLORIDE (test code = 2215) 96 MEQ/L CARBON DIOXIDE (test code = 29 MEQ/L 2205) CALCIUM (test code = 2209) 11.9 MG/DL PROTEIN, TOTAL (test code = 8.3 G/DL 2228) ALBUMIN (test code = 2201) 4.6 G/DL CALC GLOBULIN (test code = 3.7 G/DL 2240) CALC A/G RATIO (test code = 1.2 RATIO 2234) BILIRUBIN, TOTAL (test code = 0.4 MG/DL 2206) ALKALINE PHOSPHATASE (test 87 U/L code = 2204) AST (test code = 2218) 13 U/L ALT (test code = 2219) 14 U/L COMPREHENSIVE METABOLIC [id number] 00:00:00 Test Item Value Reference Range Interpretation Comments GLUCOSE (test code = 2217) 97 MG/DL BUN (test code = 2208) 5 MG/DL CREATININE (test code = 2214) 0.79 MG/DL eGFR AMER. (test code 107 ML/MIN/1.73 = 82372) eGFR NON- AMER. (test 92 ML/MIN/1.73 code = 22962) CALC BUN/CREAT (test code = 6 RATIO 2235) SODIUM (test code = 2231) 138 MEQ/L POTASSIUM (test code = 2228) 4.1 MEQ/L CHLORIDE (test code = 2215) 96 MEQ/L CARBON DIOXIDE (test code = 29 MEQ/L 2206) CALCIUM (test code = 2209) 11.9 MG/DL PROTEIN, TOTAL (test code = 8.3 G/DL 2228) ALBUMIN (test code = 2201) 4.6 G/DL CALC GLOBULIN (test code = 3.7 G/DL 0) CALC A/G RATIO (test code = 1.2 RATIO 2233) BILIRUBIN, TOTAL (test code = 0.4 MG/DL 2206) ALKALINE PHOSPHATASE (test 87 U/L code = 2204) AST (test code = 2218) 13 U/L ALT (test code = 2219) 14 U/L URINE AND [id number] 05:22:00 Test Item Value Reference Range Interpretation Comments UA Leuk Est (test Negative (11/17/17 12:22 code = UA Leuk Est) AM) [facility] AND [id number] 05:22:00 Test Item Value Reference Range Interpretation Comments UA Bacteria (test code = UA Occasional /HPF Bacteria) [facility] AND [id number] 05:22:00 Test Item Value Reference Range Interpretation Comments UA WBC (test code = 3 See_Comment [Automa kuldip message] The UA WBC) system which ge nerated this result transmit kuldip reference range : <=5. The reference range was not used to interpr et this result as abiodun l/abnormal. [facility] AND [id number] 05:22:00 Test Item Value Reference Range Interpretation Comments UA Mucus (test code = UA Mucus) Few /LPF [facility] AND [id number] 05:22:00 Test Item Value Reference Range Interpretation Comments UA Sq Epi (test code = UA Sq Occasional /LPF Epi) [facility] AND [id number] 05:22:00 Test Item Value Reference Range Interpretation Comments UA Nitrite (test code Negative (11/17/17 12:22 = UA Nitrite) AM) [facility] AND [id number] 05:22:00 Test Item Value Reference Range Interpretation Comments UA CaOx Judy (test code = UA Moderate /HPF CaOx Judy) [facility] [id number] 05:22:00 Test Item Value Reference Range Interpretation Comments UA Urobilinogen (test code = UA 4.0 0.1-1.0 Urobilinogen) [facility] AND [id number] 05:22:00 Test Item Value Reference Range Interpretation Comments UA Ketones (test code = UA Negative mg/dL Ketones) [facility] AND [id number] 05:22:00 Test Item Value Reference Range Interpretation Comments UA Blood (test code = Negative (11/17/17 12:22 UA Blood) AM) [facility] AND [id number] 05:22:00 Test Item Value Reference Range Interpretation Comments UA Bili (test code = Negative *NA*(11/17/17 UA Bili) 12:22 AM) [facility] AND [id number] 05:22:00 Test Item Value Reference Range Interpretation Comments UA Color (test code = Yellow *NA*(11/17/17 UA Color) 12:22 AM) [facility] AND [id number] 05:22:00 Test Item Value Reference Range Interpretation Comments UA Protein (test code = UA Negative mg/dL Protein) [facility] AND [id number] 05:22:00 Test Item Value Reference Range Interpretation Comments UA pH (test code = UA pH) 7.0 1 5.0-8.0 [facility] AND [id number] 05:22:00 Test Item Value Reference Range Interpretation Comments UA Spec Grav (test code = UA Spec 1.011 1 Grav) [facility] AND [id number] 05:22:00 Test Item Value Reference Range Interpretation Comments UA Turbidity (test code Slight *ABN*(11/17/17 = UA Turbidity) 12:22 AM) [facility] AND [id number] 05:22:00 Test Item Value Reference Range Interpretation Comments UA Glucose (test code = UA Negative mg/dL Glucose) [facility] AND [id number] 05:22:00 Test Item Value Reference Range Interpretation Comments UA Leuk Est (test Negative (11/17/17 12:22 code = UA Leuk Est) AM) [facility] AND [id number] 05:22:00 Test Item Value Reference Range Interpretation Comments UA Bacteria (test code = UA Occasional /HPF Bacteria) [facility] AND [id number] 05:22:00 Test Item Value Reference Range Interpretation Comments UA WBC (test code = 3 See_Comment [Automa kuldip message] The UA WBC) system which ge nerated this result transmit kuldip reference range : <=5. The reference range was not used to interpr et this result as abiodun l/abnormal. [facility] AND [id number] 05:22:00 Test Item Value Reference Range Interpretation Comments UA Mucus (test code = UA Mucus) Few /LPF [facility] AND [id number] 05:22:00 Test Item Value Reference Range Interpretation Comments UA Sq Epi (test code = UA Sq Occasional /LPF Epi) [facility] AND [id number] 05:22:00 Test Item Value Reference Range Interpretation Comments UA Nitrite (test code Negative (11/17/17 12:22 = UA Nitrite) AM) [facility] AND [id number] 05:22:00 Test Item Value Reference Range Interpretation Comments UA CaOx Judy (test code = UA Moderate /HPF CaOx Judy) [facility] AND [id number] 05:22:00 Test Item Value Reference Range Interpretation Comments UA Urobilinogen (test code = UA 4.0 0.1-1.0 Urobilinogen) [facility] AND [id number] 05:22:00 Test Item Value Reference Range Interpretation Comments UA Ketones (test code = UA Negative mg/dL Ketones) [facility] AND [id number] 05:22:00 Test Item Value Reference Range Interpretation Comments UA Blood (test code = Negative (11/17/17 12:22 UA Blood) AM) [facility] AND [id number] 05:22:00 Test Item Value Reference Range Interpretation Comments UA Bili (test code = Negative *NA*(11/17/17 UA Bili) 12:22 AM) [facility] AND [id number] 05:22:00 Test Item Value Reference Range Interpretation Comments UA Color (test code = Yellow *NA*(11/17/17 UA Color) 12:22 AM) [facility] AND [id number] 05:22:00 Test Item Value Reference Range Interpretation Comments UA Protein (test code = UA Negative mg/dL Protein) [facility] AND [id number] 05:22:00 Test Item Value Reference Range Interpretation Comments UA pH (test code = UA pH) 7.0 1 5.0-8.0 [facility] AND [id number] 05:22:00 Test Item Value Reference Range Interpretation Comments UA Spec Grav (test code = UA Spec 1.011 1 Grav) [facility] AND [id number] 05:22:00 Test Item Value Reference Range Interpretation Comments UA Turbidity (test code Slight *ABN*(11/17/17 = UA Turbidity) 12:22 AM) [facility] AND [id number] 05:22:00 Test Item Value Reference Range Interpretation Comments UA Glucose (test code = UA Negative mg/dL Glucose) [facility] AND [id number] 05:22:00 Test Item Value Reference Range Interpretation Comments UA Leuk Est (test Negative (11/17/17 12:22 code = UA Leuk Est) AM) [facility] AND [id number] 05:22:00 Test Item Value Reference Range Interpretation Comments UA Bacteria (test code = UA Occasional /HPF Bacteria) [facility] AND [id number] 05:22:00 Test Item Value Reference Range Interpretation Comments UA WBC (test code = 3 See_Comment [Automa kuldip message] The UA WBC) system which ge nerated this result transmit kuldip reference range : <=5. The reference range was not used to interpr et this result as abiodun l/abnormal. [facility] AND [id number] 05:22:00 Test Item Value Reference Range Interpretation Comments UA Mucus (test code = UA Mucus) Few /LPF [facility] AND [id number] 05:22:00 Test Item Value Reference Range Interpretation Comments UA Sq Epi (test code = UA Sq Occasional /LPF Epi) [facility] AND [id number] 05:22:00 Test Item Value Reference Range Interpretation Comments UA Nitrite (test code Negative (11/17/17 12:22 = UA Nitrite) AM) [facility] AND [id number] 05:22:00 Test Item Value Reference Range Interpretation Comments UA Leuk Est (test Negative (11/17/17 12:22 code = UA Leuk Est) AM) [facility] AND [id number] 05:22:00 Test Item Value Reference Range Interpretation Comments UA Bacteria (test code = UA Occasional /HPF Bacteria) [facility] AND [id number] 05:22:00 Test Item Value Reference Range Interpretation Comments UA WBC (test code = 3 See_Comment [Automa kuldip message] The UA WBC) system which ge nerated this result transmit kuldip reference range : <=5. The reference range was not used to interpr et this result as abiodun l/abnormal. [facility] AND [id number] 05:22:00 Test Item Value Reference Range Interpretation Comments UA Mucus (test code = UA Mucus) Few /LPF [facility] AND [id number] 05:22:00 Test Item Value Reference Range Interpretation Comments UA Sq Epi (test code = UA Sq Occasional /LPF Epi) [facility] AND [id number] 05:22:00 Test Item Value Reference Range Interpretation Comments UA Nitrite (test code Negative (11/17/17 12:22 = UA Nitrite) AM) [facility] AND [id number] 05:22:00 Test Item Value Reference Range Interpretation Comments UA CaOx Judy (test code = UA Moderate /HPF CaOx Judy) [facility] AND [id number] 05:22:00 Test Item Value Reference Range Interpretation Comments UA Urobilinogen (test code = UA 4.0 0.1-1.0 Urobilinogen) [facility] AND [id number] 05:22:00 Test Item Value Reference Range Interpretation Comments UA Ketones (test code = UA Negative mg/dL Ketones) [facility] AND [id number] 05:22:00 Test Item Value Reference Range Interpretation Comments UA CaOx Judy (test code = UA Moderate /HPF CaOx Judy) [facility] AND [id number] 05:22:00 Test Item Value Reference Range Interpretation Comments UA Blood (test code = Negative (11/17/17 12:22 UA Blood) AM) [facility] AND [id number] 05:22:00 Test Item Value Reference Range Interpretation Comments UA Bili (test code = Negative *NA*(11/17/17 UA Bili) 12:22 AM) [facility] AND [id number] 05:22:00 Test Item Value Reference Range Interpretation Comments UA Color (test code = Yellow *NA*(11/17/17 UA Color) 12:22 AM) [facility] AND [id number] 05:22:00 Test Item Value Reference Range Interpretation Comments UA Protein (test code = UA Negative mg/dL Protein) [facility] AND [id number] 05:22:00 Test Item Value Reference Range Interpretation Comments UA pH (test code = UA pH) 7.0 1 5.0-8.0 [facility] AND [id number] 05:22:00 Test Item Value Reference Range Interpretation Comments UA Spec Grav (test code = UA Spec 1.011 1 Grav) [facility] AND [id number] 05:22:00 Test Item Value Reference Range Interpretation Comments UA Turbidity (test code Slight *ABN*(11/17/17 = UA Turbidity) 12:22 AM) [facility] AND [id number] 05:22:00 Test Item Value Reference Range Interpretation Comments UA Glucose (test code = UA Negative mg/dL Glucose) [facility] AND [id number] 05:22:00 Test Item Value Reference Range Interpretation Comments UA Urobilinogen (test code = UA 4.0 0.1-1.0 Urobilinogen) [facility] AND [id number] 05:22:00 Test Item Value Reference Range Interpretation Comments UA Ketones (test code = UA Negative mg/dL Ketones) [facility] AND [id number] 05:22:00 Test Item Value Reference Range Interpretation Comments UA Blood (test code = Negative (11/17/17 12:22 UA Blood) AM) [facility] AND [id number] 05:22:00 Test Item Value Reference Range Interpretation Comments UA Bili (test code = Negative *NA*(11/17/17 UA Bili) 12:22 AM) [facility] AND [id number] 05:22:00 Test Item Value Reference Range Interpretation Comments UA Color (test code = Yellow *NA*(11/17/17 UA Color) 12:22 AM) [facility] AND [id number] 05:22:00 Test Item Value Reference Range Interpretation Comments UA Protein (test code = UA Negative mg/dL Protein) [facility] AND [id number] 05:22:00 Test Item Value Reference Range Interpretation Comments UA pH (test code = UA pH) 7.0 1 5.0-8.0 [facility] AND [id number] 05:22:00 Test Item Value Reference Range Interpretation Comments UA Spec Grav (test code = UA Spec 1.011 1 Grav) [facility] AND [id number] 05:22:00 Test Item Value Reference Range Interpretation Comments UA Turbidity (test code Slight *ABN*(11/17/17 = UA Turbidity) 12:22 AM) [facility] AND [id number] 05:22:00 Test Item Value Reference Range Interpretation Comments UA Glucose (test code = UA Negative mg/dL Glucose) [facility] [id number] 04:23:00 Test Item Value Reference Range Interpretation Comments Total CK (test code = Total CK) 191 12-191 [facility] [id number] 04:23:00 Test Item Value Reference Range Interpretation Comments Troponin-I (test code no gt See_Comment [Auto mated message] The = Troponin-I) system which g enerated this result transmit kuldip reference range : <=0.40. The reference r nilam was not used to interpr et this result as abiodun l/abnormal. [facility] [id number] 04:23:00 Test Item Value Reference Range Interpretation Comments eGFR (test code = eGFR) 104 [facility] [id number] 04:23:00 Test Item Value Reference Range Interpretation Comments Bili Total (test code = Bili Total) 0.5 0.2-1.3 [facility] [id number] 04:23:00 Test Item Value Reference Range Interpretation Comments Total Protein (test code = Total 8.9 6.4-8.4 Protein) [facility] [id number] 04:23:00 Test Item Value Reference Range Interpretation Comments ALT (test code = ALT) 24 See_Comment [Auto mated message] The system which ge nerated this result transmit kuldip reference range : <=65. The reference range was not used to interpr et this result as abiodun l/abnormal. [facility] [id number] 04:23:00 Test Item Value Reference Range Interpretation Comments Albumin Lvl (test code = Albumin Lvl) 3.7 3.5-5.0 [facility]2018-08-25 04:23:00 Test Item Value Reference Range Interpretation Comments AST (test code = AST) 27 See_Comment [Auto mated message] The system which ge nerated this result transmit kuldip reference range : <=37. The reference range was not used to interpr et this result as abiodun l/abnormal. [facility]2018-08-25 04:23:00 Test Item Value Reference Range Interpretation Comments Alk Phos (test code = Alk Phos) 86 39-136 [facility]2018-08-25 04:23:00 Test Item Value Reference Range Interpretation Comments Chloride Lvl (test code = Chloride Lvl) 103 95-109 [facility]2018-08-25 04:23:00 Test Item Value Reference Range Interpretation Comments CO2 (test code = CO2) 26 24-32 [facility]2018-08-25 04:23:00 Test Item Value Reference Range Interpretation Comments Calcium Lvl (test code = Calcium Lvl) 10.8 8.5-10.5 [facility]2018-08-25 04:23:00 Test Item Value Reference Range Interpretation Comments Potassium Lvl (test code = Potassium 4.1 3.5-5.1 Lvl) [facility]2018-08-25 04:23:00 Test Item Value Reference Range Interpretation Comments Sodium Lvl (test code = Sodium Lvl) 138 135-145 [facility]2018-08-25 04:23:00 Test Item Value Reference Range Interpretation Comments Glucose Lvl (test code = Glucose Lvl) 102 70-99 [facility]2018-08-25 04:23:00 Test Item Value Reference Range Interpretation Comments BUN (test code = BUN) 6 7-22 [facility]2018-08-25 04:23:00 Test Item Value Reference Range Interpretation Comments Creatinine Lvl (test code = Creatinine 0.80 0.50-1.40 Lvl) [facility]2018-08-25 04:23:00 Test Item Value Reference Range Interpretation Comments Globulin (test code = Globulin) 5.2 2.7-4.2 [facility]2018-08-25 04:23:00 Test Item Value Reference Range Interpretation Comments AGAP (test code = AGAP) 13.1 10.0-20.0 [facility]2018-08-25 04:23:00 Test Item Value Reference Range Interpretation Comments A/G Ratio (test code = A/G Ratio) 0.7 1 0.7-1.6 [facility]2018-08-25 04:23:00 Test Item Value Reference Range Interpretation Comments B/C Ratio (test code = B/C Ratio) 8 1 6-25 [facility] [id number] 04:23:00 Test Item Value Reference Range Interpretation Comments Phosphorus (test code = Phosphorus) 1.9 2.5-4.5 [facility]2018-08-25 04:23:00 Test Item Value Reference Range Interpretation Comments Magnesium Lvl (test code = Magnesium 2.2 1.8-2.4 Lvl) [place] [id number] 04:23:00 Test Item Value Reference Range Interpretation Comments S Preg (test code = S Negative *NA*(11/16/17 Preg) 11:23 PM) [id number] 04:23:00 Test Item Value Reference Range Interpretation Comments Hct (test code = Hct) 39.7 36.0-48.0 [facility] [id number] 04:23:00 Test Item Value Reference Range Interpretation Comments Hgb (test code = Hgb) 14.0 12.0-16.0 [facility] [id number] 04:23:00 Test Item Value Reference Range Interpretation Comments WBC (test code = WBC) 7.3 3.7-10.4 [facility] [id number] 04:23:00 Test Item Value Reference Range Interpretation Comments RBC (test code = RBC) 4.56 4.20-5.40 [facility] S[id number] 04:23:00 Test Item Value Reference Range Interpretation Comments MCHC (test code = MCHC) 35.2 32.0-36.0 [facility] [id number] 04:23:00 Test Item Value Reference Range Interpretation Comments MCV (test code = MCV) 87.1 80.0-98.0 [facility] [id number] 04:23:00 Test Item Value Reference Range Interpretation Comments MPV (test code = MPV) 8.4 7.4-10.4 [facility] [id number] 04:23:00 Test Item Value Reference Range Interpretation Comments RDW (test code = RDW) 13.0 11.5-14.5 [facility] Syst[id number] 04:23:00 Test Item Value Reference Range Interpretation Comments MCH (test code = MCH) 30.7 pg 27.0-31.0 [facility] SystemDricfkjCURGEBRESX4559-49-02 04:23:00 Test Item Value Reference Range Interpretation Comments Platelet (test code = Platelet) 263 133-450 [facility] SystemMwimjqzXGJCLGMHNN5652-60-01 04:23:00 Test Item Value Reference Range Interpretation Comments D-Dimer (test code = D-Dimer) 0.27 [facility] SystemUvzslneJFIXWCDPBF0567-36-55 04:23:00 Test Item Value Reference Range Interpretation Comments Lymphocytes # (test code = Lymphocytes 2.3 1.0-5.5 #) [facility] SystemKkrixckEEQSNNAPSA1759-19-35 04:23:00 Test Item Value Reference Range Interpretation Comments Segs (test code = Segs) 58.7 45.0-75.0 [facility] SystemUavizouIQJHZPTELH8478-37-41 04:23:00 Test Item Value Reference Range Interpretation Comments Lymphocytes (test code = Lymphocytes) 31.5 20.0-40.0 [facility] SystemCeukryaPKAQAFNBPY0650-75-84 04:23:00 Test Item Value Reference Range Interpretation Comments Neutrophils # (test code = Neutrophils 4.3 1.5-8.1 #) [facility] SystemVgsccccYGMTXFVAXL3668-08-18 04:23:00 Test Item Value Reference Range Interpretation Comments Basophils (test code = 0.6 See_Comment [Aut omated message] The Basophils) system which ge nerated this result tra nsmitted reference range : <=1.0. The reference r nilam was not used to int erpret this result as normal/abnormal . [facility] SystemXfmdoftUDQBGADATJ3051-60-16 04:23:00 Test Item Value Reference Range Interpretation Comments Monocytes (test code = Monocytes) 6.7 2.0-12.0 [facility] SystemZwyavayPOQQFJRVJI6119-21-83 04:23:00 Test Item Value Reference Range Interpretation Comments Eosinophils (test code = 2.5 See_Comment [A utomated message] The Eosinophils) system which ge nerated this result tra nsmitted reference range : <=4.0. The reference r nilam was not used to int erpret this result as normal/abnormal . [facility] EgtfrwmOCKDQJOYOP4735-87-51 04:23:00 Test Item Value Reference Range Interpretation Comments Eosinophils # (test code 0.2 See_Comment [A utomated message] The = Eosinophils #) system whic h generated this result tra nsmitted reference range : <=0.5. The reference r nilam was not used to int erpret this result as normal/abnormal . [facility]EjmnpvhMZHTZLPMWL7989-59-41 04:23:00 Test Item Value Reference Range Interpretation Comments Monocytes # (test code 0.5 See_Comment [Aut omated message] The = Monocytes #) system which generated this result tra nsmitted reference range : <=0.8. The reference r nilam was not used to int erpret this result as normal/abnormal . [facility] [employer]2018-08-25 04:23:00 Test Item Value Reference Range Interpretation Comments Total CK (test code = Total CK) 191 12-191 [facility] [employer]2018-08-25 04:23:00 Test Item Value Reference Range Interpretation Comments Troponin-I (test code no gt See_Comment [Auto mated message] The = Troponin-I) system which g enerated this result transmit kuldip reference range : <=0.40. The reference r nilam was not used to interpr et this result as abiodun l/abnormal. [facility] [employer]2018-08-25 04:23:00 Test Item Value Reference Range Interpretation Comments eGFR (test code = eGFR) 104 [facility] [employer]2018-08-25 04:23:00 Test Item Value Reference Range Interpretation Comments Bili Total (test code = Bili Total) 0.5 0.2-1.3 [facility] [employer]2018-08-25 04:23:00 Test Item Value Reference Range Interpretation Comments Total Protein (test code = Total 8.9 6.4-8.4 Protein) [facility] [employer]2018-08-25 04:23:00 Test Item Value Reference Range Interpretation Comments ALT (test code = ALT) 24 See_Comment [Auto mated message] The system which ge nerated this result transmit kuldip reference range : <=65. The reference range was not used to interpr et this result as abiodun l/abnormal. [facility]2018-08-25 04:23:00 Test Item Value Reference Range Interpretation Comments Albumin Lvl (test code = Albumin Lvl) 3.7 3.5-5.0 [facility]2018-08-25 04:23:00 Test Item Value Reference Range Interpretation Comments AST (test code = AST) 27 See_Comment [Auto mated message] The system which ge nerated this result transmit kuldip reference range : <=37. The reference range was not used to interpr et this result as abiodun l/abnormal. [facility]2018-08-25 04:23:00 Test Item Value Reference Range Interpretation Comments Alk Phos (test code = Alk Phos) 86 39-136 [facility]2018-08-25 04:23:00 Test Item Value Reference Range Interpretation Comments Chloride Lvl (test code = Chloride Lvl) 103 95-109 [facility]2018-08-25 04:23:00 Test Item Value Reference Range Interpretation Comments CO2 (test code = CO2) 26 24-32 [facility]2018-08-25 04:23:00 Test Item Value Reference Range Interpretation Comments Calcium Lvl (test code = Calcium Lvl) 10.8 8.5-10.5 [facility]2018-08-25 04:23:00 Test Item Value Reference Range Interpretation Comments Potassium Lvl (test code = Potassium 4.1 3.5-5.1 Lvl) [facility]2018-08-25 04:23:00 Test Item Value Reference Range Interpretation Comments Sodium Lvl (test code = Sodium Lvl) 138 135-145 [facility]2018-08-25 04:23:00 Test Item Value Reference Range Interpretation Comments Glucose Lvl (test code = Glucose Lvl) 102 70-99 [facility]2018-08-25 04:23:00 Test Item Value Reference Range Interpretation Comments BUN (test code = BUN) 6 7-22 [facility]2018-08-25 04:23:00 Test Item Value Reference Range Interpretation Comments Creatinine Lvl (test code = Creatinine 0.80 0.50-1.40 Lvl) [facility]2018-08-25 04:23:00 Test Item Value Reference Range Interpretation Comments Globulin (test code = Globulin) 5.2 2.7-4.2 [facility]2018-08-25 04:23:00 Test Item Value Reference Range Interpretation Comments AGAP (test code = AGAP) 13.1 10.0-20.0 [facility]2018-08-25 04:23:00 Test Item Value Reference Range Interpretation Comments A/G Ratio (test code = A/G Ratio) 0.7 1 0.7-1.6 [facility]2018-08-25 04:23:00 Test Item Value Reference Range Interpretation Comments B/C Ratio (test code = B/C Ratio) 8 1 6-25 [facility]2018-08-25 04:23:00 Test Item Value Reference Range Interpretation Comments Phosphorus (test code = Phosphorus) 1.9 2.5-4.5 [facility]2018-08-25 04:23:00 Test Item Value Reference Range Interpretation Comments Magnesium Lvl (test code = Magnesium 2.2 1.8-2.4 Lvl) [facility]FUMADY[facility]FMMCUI4987[facility]-11 04:23:00 Test Item Value Reference Range Interpretation Comments S Preg (test code = S Negative *NA*(11/16/17 Preg) 11:23 PM) [facility]BvwjuhpYSIXYMXBBY8964-31-31 04:23:00 Test Item Value Reference Range Interpretation Comments Hct (test code = Hct) 39.7 36.0-48.0 [facility] SystemUhqejdyYLXAJIVVHU3523-72-70 04:23:00 Test Item Value Reference Range Interpretation Comments Hgb (test code = Hgb) 14.0 12.0-16.0 [facility] SystemEwnodqlNERQEGMQQS7398-11-30 04:23:00 Test Item Value Reference Range Interpretation Comments WBC (test code = WBC) 7.3 3.7-10.4 [facility] SystemGftpfbaAGZVGRAUIA3960-48-92 04:23:00 Test Item Value Reference Range Interpretation Comments RBC (test code = RBC) 4.56 4.20-5.40 [facility] SystemLmmwubpDNSMFOJYHL9941-54-71 04:23:00 Test Item Value Reference Range Interpretation Comments MCHC (test code = MCHC) 35.2 32.0-36.0 [facility] SystemEytmbowETGWQXFZKY6913-96-70 04:23:00 Test Item Value Reference Range Interpretation Comments MCV (test code = MCV) 87.1 80.0-98.0 [facility] SystemLyjorvmJZWUYDKNKO8809-32-05 04:23:00 Test Item Value Reference Range Interpretation Comments MPV (test code = MPV) 8.4 7.4-10.4 [facility] SystemSjtrpkzIZEBQWKUXA4627-97-21 04:23:00 Test Item Value Reference Range Interpretation Comments RDW (test code = RDW) 13.0 11.5-14.5 [facility] SystemJjbpvvrYAFUUJLCHG7870-90-59 04:23:00 Test Item Value Reference Range Interpretation Comments MCH (test code = MCH) 30.7 pg 27.0-31.0 [facility] SystemQgpvjocGPRHJZFLQZ9155-44-39 04:23:00 Test Item Value Reference Range Interpretation Comments Platelet (test code = Platelet) 263 133-450 [facility] SystemYygdseuEIWNHTDTWK6918-04-93 04:23:00 Test Item Value Reference Range Interpretation Comments D-Dimer (test code = D-Dimer) 0.27 [facility] SystemReykikeHAVMGWBLKI0191-82-77 04:23:00 Test Item Value Reference Range Interpretation Comments Lymphocytes # (test code = Lymphocytes 2.3 1.0-5.5 #) [facility] SystemZkpieskENQRXVLTJF3138-55-70 04:23:00 Test Item Value Reference Range Interpretation Comments Segs (test code = Segs) 58.7 45.0-75.0 [facility] SystemNcqnekmZOAONEZRRC2765-86-09 04:23:00 Test Item Value Reference Range Interpretation Comments Lymphocytes (test code = Lymphocytes) 31.5 20.0-40.0 [facility] SystemZsfwmwwPNLKVJETDO0337-73-44 04:23:00 Test Item Value Reference Range Interpretation Comments Neutrophils # (test code = Neutrophils 4.3 1.5-8.1 #) [facility] SystemTrbtkxrPZYPIWJCCQ4648-60-62 04:23:00 Test Item Value Reference Range Interpretation Comments Basophils (test code = 0.6 See_Comment [Aut omated message] The Basophils) system which ge nerated this result tra nsmitted reference range : <=1.0. The reference r nilam was not used to int erpret this result as normal/abnormal . [facility] SystemUjycqdmKMJAFHXFYG2775-86-69 04:23:00 Test Item Value Reference Range Interpretation Comments Monocytes (test code = Monocytes) 6.7 2.0-12.0 [facility]ykytbhDDNHXJYYVC7358-35-58 04:23:00 Test Item Value Reference Range Interpretation Comments Eosinophils (test code = 2.5 See_Comment [A utomated message] The Eosinophils) system which ge nerated this result tra nsmitted reference range : <=4.0. The reference r nilam was not used to int erpret this result as normal/abnormal . [facility]KifmgvfLNKHNFBVWD4557-50-08 04:23:00 Test Item Value Reference Range Interpretation Comments Eosinophils # (test code 0.2 See_Comment [A utomated message] The = Eosinophils #) system whic h generated this result tra nsmitted reference range : <=0.5. The reference r nilam was not used to int erpret this result as normal/abnormal . [facility]UkavmauCSCMVGBJXJ8576-79-44 04:23:00 Test Item Value Reference Range Interpretation Comments Monocytes # (test code 0.5 See_Comment [Aut omated message] The = Monocytes #) system which generated this result tra nsmitted reference range : <=0.8. The reference r nilam was not used to int erpret this result as normal/abnormal . [facility] HospitalGCW NXVMKJU2927-81-84 04:23:00 Test Item Value Reference Range Interpretation Comments Total CK (test code = Total CK) 191 12-191 [facility] CenterF[facility] NUIVXRV2547-91-78 04:23:00 Test Item Value Reference Range Interpretation Comments Troponin-I (test code no gt See_Comment [Auto mated message] The = Troponin-I) system which g enerated this result transmit kuldip reference range : <=0.40. The reference r nilam was not used to interpr et this result as abiodun l/abnormal. [facility] [place] FEWQE8904-04-46 04:23:00 Test Item Value Reference Range Interpretation Comments eGFR (test code = eGFR) 104 [facility] FISQV7733-44-51 04:23:00 Test Item Value Reference Range Interpretation Comments Bili Total (test code = Bili Total) 0.5 0.2-1.3 [facility] GJOUB7530-19-06 04:23:00 Test Item Value Reference Range Interpretation Comments Total Protein (test code = Total 8.9 6.4-8.4 Protein) [facility]2018-08-25 04:23:00 Test Item Value Reference Range Interpretation Comments ALT (test code = ALT) 24 See_Comment [Auto mated message] The system which ge nerated this result transmit kuldip reference range : <=65. The reference range was not used to interpr et this result as abiodun l/abnormal. [facility]2018-08-25 04:23:00 Test Item Value Reference Range Interpretation Comments Albumin Lvl (test code = Albumin Lvl) 3.7 3.5-5.0 [facility]2018-08-25 04:23:00 Test Item Value Reference Range Interpretation Comments AST (test code = AST) 27 See_Comment [Auto mated message] The system which ge nerated this result transmit kuldip reference range : <=37. The reference range was not used to interpr et this result as abiodun l/abnormal. [facility]2018-08-25 04:23:00 Test Item Value Reference Range Interpretation Comments Alk Phos (test code = Alk Phos) 86 39-136 [facility]2018-08-25 04:23:00 Test Item Value Reference Range Interpretation Comments Chloride Lvl (test code = Chloride Lvl) 103 95-109 [facility]2018-08-25 04:23:00 Test Item Value Reference Range Interpretation Comments CO2 (test code = CO2) 26 24-32 [facility]2018-08-25 04:23:00 Test Item Value Reference Range Interpretation Comments Calcium Lvl (test code = Calcium Lvl) 10.8 8.5-10.5 [facility]2018-08-25 04:23:00 Test Item Value Reference Range Interpretation Comments Potassium Lvl (test code = Potassium 4.1 3.5-5.1 Lvl) [facility]2018-08-25 04:23:00 Test Item Value Reference Range Interpretation Comments Sodium Lvl (test code = Sodium Lvl) 138 135-145 [facility]2018-08-25 04:23:00 Test Item Value Reference Range Interpretation Comments Glucose Lvl (test code = Glucose Lvl) 102 70-99 [facility] [id number] 04:23:00 Test Item Value Reference Range Interpretation Comments BUN (test code = BUN) 6 7-22 [facility]2018-08-25 04:23:00 Test Item Value Reference Range Interpretation Comments Creatinine Lvl (test code = Creatinine 0.80 0.50-1.40 Lvl) [facility]2018-08-25 04:23:00 Test Item Value Reference Range Interpretation Comments Globulin (test code = Globulin) 5.2 2.7-4.2 [facility]2018-08-25 04:23:00 Test Item Value Reference Range Interpretation Comments AGAP (test code = AGAP) 13.1 10.0-20.0 [facility]2018-08-25 04:23:00 Test Item Value Reference Range Interpretation Comments A/G Ratio (test code = A/G Ratio) 0.7 1 0.7-1.6 [facility]2018-08-25 04:23:00 Test Item Value Reference Range Interpretation Comments B/C Ratio (test code = B/C Ratio) 8 1 6- [facility]2018-08-25 04:23:00 Test Item Value Reference Range Interpretation Comments Phosphorus (test code = Phosphorus) 1.9 2.5-4.5 [facility]2018-08-25 04:23:00 Test Item Value Reference Range Interpretation Comments Magnesium Lvl (test code = Magnesium 2.2 1.8-2.4 Lvl) [facility] HospitalWiycurjVLGANCTNLSMCY6733-45-04 04:23:00 Test Item Value Reference Range Interpretation Comments S Preg (test code = S Negative *NA*(11/16/17 Preg) 11:23 PM) [facility] SystemLrabyxkEDOODQDDNP8592-21-08 04:23:00 Test Item Value Reference Range Interpretation Comments Hct (test code = Hct) 39.7 36.0-48.0 [facility] SystemYanbzixRSTQEYFQKL0120-59-13 04:23:00 Test Item Value Reference Range Interpretation Comments Hgb (test code = Hgb) 14.0 12.0-16.0 [facility] SystemXqjgoclLEQGWRGOYO6239-12-01 04:23:00 Test Item Value Reference Range Interpretation Comments WBC (test code = WBC) 7.3 3.7-10.4 [facility] SystemLmcgzneSTKWOZKCRN3608-31-88 04:23:00 Test Item Value Reference Range Interpretation Comments RBC (test code = RBC) 4.56 4.20-5.40 [facility] SystemArxsqvkWUKXFSDSCC1913-27-17 04:23:00 Test Item Value Reference Range Interpretation Comments MCHC (test code = MCHC) 35.2 32.0-36.0 [facility] SystemGulmvwdAISUHNQAAP8421-02-34 04:23:00 Test Item Value Reference Range Interpretation Comments MCV (test code = MCV) 87.1 80.0-98.0 [facility] SystemMgemjrvFJJRRSVOAN2111-35-53 04:23:00 Test Item Value Reference Range Interpretation Comments MPV (test code = MPV) 8.4 7.4-10.4 [facility] SystemRykqewjXGJERSGPLL7648-18-76 04:23:00 Test Item Value Reference Range Interpretation Comments RDW (test code = RDW) 13.0 11.5-14.5 [facility] SystemYnooaldVQWVLTGLHU9743-45-66 04:23:00 Test Item Value Reference Range Interpretation Comments MCH (test code = MCH) 30.7 pg 27.0-31.0 [facility] SystemNgbzwinVNYMMHMFHR0273-26-96 04:23:00 Test Item Value Reference Range Interpretation Comments Platelet (test code = Platelet) 263 133-450 [facility] SystemWbbdxvwNSSSPNJCNW3961-75-75 04:23:00 Test Item Value Reference Range Interpretation Comments D-Dimer (test code = D-Dimer) 0.27 [facility] SystemGzujylmJOIOGCLLDA9367-26-79 04:23:00 Test Item Value Reference Range Interpretation Comments Lymphocytes # (test code = Lymphocytes 2.3 1.0-5.5 #) [facility] SystemZgtwljvQGETXWFMCI1437-88-55 04:23:00 Test Item Value Reference Range Interpretation Comments Segs (test code = Segs) 58.7 45.0-75.0 [facility] SystemPbwomnpTWTITQWRWI8955-93-31 04:23:00 Test Item Value Reference Range Interpretation Comments Lymphocytes (test code = Lymphocytes) 31.5 20.0-40.0 [facility] SystemGckpiucWISGKOCCSZ5583-57-07 04:23:00 Test Item Value Reference Range Interpretation Comments Neutrophils # (test code = Neutrophils 4.3 1.5-8.1 #) [facility] SystemYjviyyuJYKLCPOTDA9687-24-71 04:23:00 Test Item Value Reference Range Interpretation Comments Basophils (test code = 0.6 See_Comment [Aut omated message] The Basophils) system which ge nerated this result tra nsmitted reference range : <=1.0. The reference r nilam was not used to int erpret this result as normal/abnormal . [facility]FevqxrlIPQJFRSAAB2261-86-90 04:23:00 Test Item Value Reference Range Interpretation Comments Monocytes (test code = Monocytes) 6.7 2.0-12.0 [facility] SystemMpnxwhbHAVIBJUBOE3030-80-52 04:23:00 Test Item Value Reference Range Interpretation Comments Eosinophils (test code = 2.5 See_Comment [A utomated message] The Eosinophils) system which ge nerated this result tra nsmitted reference range : <=4.0. The reference r nilam was not used to int erpret this result as normal/abnormal . [facility] SystemZppgmuxZSNHZAXFWS0130-04-43 04:23:00 Test Item Value Reference Range Interpretation Comments Eosinophils # (test code 0.2 See_Comment [A utomated message] The = Eosinophils #) system wh h generated this result tra nsmitted reference range : <=0.5. The reference r nilam was not used to int erpret this result as normal/abnormal . [facility] CenterHyoyxjuQIWKFWBZND3062-20-42 04:23:00 Test Item Value Reference Range Interpretation Comments Monocytes # (test code 0.5 See_Comment [Aut omated message] The = Monocytes #) system which generated this result tra nsmitted reference range : <=0.8. The reference r nilam was not used to int erpret this result as normal/abnormal . [facility] HospitalGCW THNIIEB6109-81-54 04:23:00 Test Item Value Reference Range Interpretation Comments Total CK (test code = Total CK) 191 12-191 [facility] CenterProjectSpeaker LAZSWAU6847-57-08 04:23:00 Test Item Value Reference Range Interpretation Comments Troponin-I (test code no gt See_Comment [Auto mated message] The = Troponin-I) system which g enerated this result transmit kuldip reference range : <=0.40. The reference r nilam was not used to interpr et this result as abiodun l/abnormal. [facility] [place] [id number] 04:23:00 Test Item Value Reference Range Interpretation Comments eGFR (test code = eGFR) 104 [facility]2018-08-25 04:23:00 Test Item Value Reference Range Interpretation Comments Bili Total (test code = Bili Total) 0.5 0.2-1.3 [facility]2018-08-25 04:23:00 Test Item Value Reference Range Interpretation Comments Total Protein (test code = Total 8.9 6.4-8.4 Protein) [facility]2018-08-25 04:23:00 Test Item Value Reference Range Interpretation Comments ALT (test code = ALT) 24 See_Comment [Auto mated message] The system which ge nerated this result transmit kuldip reference range : <=65. The reference range was not used to interpr et this result as abiodun l/abnormal. [facility]2018-08-25 04:23:00 Test Item Value Reference Range Interpretation Comments Albumin Lvl (test code = Albumin Lvl) 3.7 3.5-5.0 [facility]2018-08-25 04:23:00 Test Item Value Reference Range Interpretation Comments AST (test code = AST) 27 See_Comment [Auto mated message] The system which ge nerated this result transmit kuldip reference range : <=37. The reference range was not used to interpr et this result as abiodun l/abnormal. [facility]2018-08-25 04:23:00 Test Item Value Reference Range Interpretation Comments Alk Phos (test code = Alk Phos) 86 39-136 [facility]2018-08-25 04:23:00 Test Item Value Reference Range Interpretation Comments Chloride Lvl (test code = Chloride Lvl) 103 95-109 [facility]2018-08-25 04:23:00 Test Item Value Reference Range Interpretation Comments CO2 (test code = CO2) 26 24-32 [facility]2018-08-25 04:23:00 Test Item Value Reference Range Interpretation Comments Calcium Lvl (test code = Calcium Lvl) 10.8 8.5-10.5 [facility]2018-08-25 04:23:00 Test Item Value Reference Range Interpretation Comments Potassium Lvl (test code = Potassium 4.1 3.5-5.1 Lvl) [facility]2018-08-25 04:23:00 Test Item Value Reference Range Interpretation Comments Sodium Lvl (test code = Sodium Lvl) 138 135-145 [facility]2018-08-25 04:23:00 Test Item Value Reference Range Interpretation Comments Glucose Lvl (test code = Glucose Lvl) 102 70-99 [facility]2018-08-25 04:23:00 Test Item Value Reference Range Interpretation Comments BUN (test code = BUN) 6 7-22 [facility]2018-08-25 04:23:00 Test Item Value Reference Range Interpretation Comments Creatinine Lvl (test code = Creatinine 0.80 0.50-1.40 Lvl) [facility]2018-08-25 04:23:00 Test Item Value Reference Range Interpretation Comments Globulin (test code = Globulin) 5.2 2.7-4.2 [facility]2018-08-25 04:23:00 Test Item Value Reference Range Interpretation Comments AGAP (test code = AGAP) 13.1 10.0-20.0 [facility]2018-08-25 04:23:00 Test Item Value Reference Range Interpretation Comments A/G Ratio (test code = A/G Ratio) 0.7 1 0.7-1.6 [facility]2018-08-25 04:23:00 Test Item Value Reference Range Interpretation Comments B/C Ratio (test code = B/C Ratio) 8 1 09-17 [facility]2018-08-25 04:23:00 Test Item Value Reference Range Interpretation Comments Phosphorus (test code = Phosphorus) 1.9 2.5-4.5 [facility]2018-08-25 04:23:00 Test Item Value Reference Range Interpretation Comments Magnesium Lvl (test code = Magnesium 2.2 1.8-2.4 Lvl) [facility] CenterNmotelcMBMJPPUGQUWDJ5576-30-54 04:23:00 Test Item Value Reference Range Interpretation Comments S Preg (test code = S Negative *NA*(11/16/17 Preg) 11:23 PM) [facility] SystemLqrogcgLWIXKBUVLO2005-77-10 04:23:00 Test Item Value Reference Range Interpretation Comments Hct (test code = Hct) 39.7 36.0-48.0 [facility] SystemNorlckrGKUPGAHWIZ5758-25-63 04:23:00 Test Item Value Reference Range Interpretation Comments Hgb (test code = Hgb) 14.0 12.0-16.0 [facility] SystemEeduofbMXUBPTHXSQ4635-64-80 04:23:00 Test Item Value Reference Range Interpretation Comments WBC (test code = WBC) 7.3 3.7-10.4 [facility] SystemOeclkwpNCGXROFDQC3979-99-38 04:23:00 Test Item Value Reference Range Interpretation Comments RBC (test code = RBC) 4.56 4.20-5.40 [facility] SystemZryxtotJFZOYYTKRR9420-71-95 04:23:00 Test Item Value Reference Range Interpretation Comments MCHC (test code = MCHC) 35.2 32.0-36.0 [facility] SystemCkuekrqQSYLPRKPAD5520-67-55 04:23:00 Test Item Value Reference Range Interpretation Comments MCV (test code = MCV) 87.1 80.0-98.0 [facility] SystemFmscipyECCUFZFIDR7194-96-02 04:23:00 Test Item Value Reference Range Interpretation Comments MPV (test code = MPV) 8.4 7.4-10.4 [facility] SystemNqpozesZNKTLFLUCE9109-54-80 04:23:00 Test Item Value Reference Range Interpretation Comments RDW (test code = RDW) 13.0 11.5-14.5 [facility] SystemWojehpkDSGVLWCNKY1504-72-70 04:23:00 Test Item Value Reference Range Interpretation Comments MCH (test code = MCH) 30.7 pg 27.0-31.0 [facility] SystemAnjuzghVPCABTKLYG2482-17-08 04:23:00 Test Item Value Reference Range Interpretation Comments Platelet (test code = Platelet) 263 133-450 [facility] SystemOpbabvbLTAQYCHHZT5319-64-09 04:23:00 Test Item Value Reference Range Interpretation Comments D-Dimer (test code = D-Dimer) 0.27 [facility] SystemRmexqlhHCNTDLWWZX8415-87-35 04:23:00 Test Item Value Reference Range Interpretation Comments Lymphocytes # (test code = Lymphocytes 2.3 1.0-5.5 #) [facility] SystemVmypfwkHTQBPZQJVP8458-04-73 04:23:00 Test Item Value Reference Range Interpretation Comments Segs (test code = Segs) 58.7 45.0-75.0 [facility] SystemSuzgrliTWHBVGFWKR6431-84-32 04:23:00 Test Item Value Reference Range Interpretation Comments Lymphocytes (test code = Lymphocytes) 31.5 20.0-40.0 [facility] SystemCiljooqGVDYZDSYKY0303-16-45 04:23:00 Test Item Value Reference Range Interpretation Comments Neutrophils # (test code = Neutrophils 4.3 1.5-8.1 #) [facility] SystemAysyancJRPDGKTCHS2989-70-32 04:23:00 Test Item Value Reference Range Interpretation Comments Basophils (test code = 0.6 See_Comment [Aut omated message] The Basophils) system which ge nerated this result tra nsmitted reference range : <=1.0. The reference r nilam was not used to int erpret this result as normal/abnormal . [facility] SystemJsiylkoYGZUUNQKTE6741-01-66 04:23:00 Test Item Value Reference Range Interpretation Comments Monocytes (test code = Monocytes) 6.7 2.0-12.0 [facility] SystemRdrlmmxXWYWNOVYLW2882-12-10 04:23:00 Test Item Value Reference Range Interpretation Comments Eosinophils (test code = 2.5 See_Comment [A utomated message] The Eosinophils) system which ge nerated this result tra nsmitted reference range : <=4.0. The reference r nilam was not used to int erpret this result as normal/abnormal . [facility] SystemGspuxqfVCLNMZJSLR9955-05-51 04:23:00 Test Item Value Reference Range Interpretation Comments Eosinophils # (test code 0.2 See_Comment [A utomated message] The = Eosinophils #) system whic h generated this result tra nsmitted reference range : <=0.5. The reference r nilam was not used to int erpret this result as normal/abnormal . [facility] SystemHgmwxxgOSHHHAIKMO8431-93-11 04:23:00 Test Item Value Reference Range Interpretation Comments Monocytes # (test code 0.5 See_Comment [Aut omated message] The = Monocytes #) system which generated this result tra nsmitted reference range : <=0.8. The reference r nilam was not used to int erpret this result as normal/abnormal . [facility] + LH [id number] 00:00:00 Test Item Value Reference Range Interpretation Comments FOLLICLE STIM HORMONE (test code = 37.9 IU/L 2700) LUTEINIZING HORMONE (test code = 18.7 IU/L 2776) [id number] 00:00:00 Test Item Value Reference Range Interpretation Comments ESTRADIOL (test code = 2505) 17.5 PG/ML [id number] 00:00:00 Test Item Value Reference Range Interpretation Comments ESTRADIOL (test code = 2505) 17.5 PG/ML [facility] + LH [id number] 00:00:00 Test Item Value Reference Range Interpretation Comments FOLLICLE STIM HORMONE (test code = 37.9 IU/L 2700) LUTEINIZING HORMONE (test code = 18.7 IU/L 2776) [facility] + LH [id number] 00:00:00 Test Item Value Reference Range Interpretation Comments FOLLICLE STIM HORMONE (test code = 37.9 IU/L 2700) LUTEINIZING HORMONE (test code = 18.7 IU/L 2776) [id number] 00:00:00 Test Item Value Reference Range Interpretation Comments ESTRADIOL (test code = 2505) 17.5 PG/ML [id number] 00:00:00 Test Item Value Reference Range Interpretation Comments ESTRADIOL (test code = 2505) 17.5 PG/ML [id number] 00:00:00 Test Item Value Reference Range Interpretation Comments ESTRADIOL (test code = 2505) 17.5 PG/ML [id number] 00:00:00 Test Item Value Reference Range Interpretation Comments ESTRADIOL (test code = 2505) 17.5 PG/ML [facility] + LH [id number] 00:00:00 Test Item Value Reference Range Interpretation Comments FOLLICLE STIM HORMONE (test code = 37.9 IU/L 2700) LUTEINIZING HORMONE (test code = 18.7 IU/L 2776) [facility] + LH [id number] 00:00:00 Test Item Value Reference Range Interpretation Comments FOLLICLE STIM HORMONE (test code = 37.9 IU/L 2700) LUTEINIZING HORMONE (test code = 18.7 IU/L 2776) [id number] 00:00:00 Test Item Value Reference Range Interpretation Comments ESTRADIOL (test code = 2505) 17.5 PG/ML [id number] 00:00:00 Test Item Value Reference Range Interpretation Comments ESTRADIOL (test code = 2505) 17.5 PG/ML [id number] 00:00:00 Test Item Value Reference Range Interpretation Comments ESTRADIOL (test code = 2505) 17.5 PG/ML [facility] + LH [id number] 00:00:00 Test Item Value Reference Range Interpretation Comments FOLLICLE STIM HORMONE (test code = 37.9 IU/L 2700) LUTEINIZING HORMONE (test code = 18.7 IU/L 2776) [facility] + LH [id number] 00:00:00 Test Item Value Reference Range Interpretation Comments FOLLICLE STIM HORMONE (test code = 37.9 IU/L 2700) LUTEINIZING HORMONE (test code = 18.7 IU/L 2776) [id number] 00:00:00 Test Item Value Reference Range Interpretation Comments ESTRADIOL (test code = 2505) 17.5 PG/ML [id number] 00:00:00 Test Item Value Reference Range Interpretation Comments ESTRADIOL (test code = 2505) 17.5 PG/ML [id number] 00:00:00 Test Item Value Reference Range Interpretation Comments ESTRADIOL (test code = 2505) 17.5 PG/ML DRUG [id number] 22:01:00 Test Item Value Reference Range Interpretation Comments UDS Note (test code = See Note *NA*(10/31/17 UDS Note) 5:01 PM) [facility] [id number] 22:01:00 Test Item Value Reference Range Interpretation Comments U Phencyclidine Scr (test Negative *NA*(10/31/17 code = U Phencyclidine 5:01 PM) Scr) [facility] [id number] 22:01:00 Test Item Value Reference Range Interpretation Comments U Opiate Scr (test Negative *NA*(10/31/17 code = U Opiate Scr) 5:01 PM) [facility] [id number] 22:01:00 Test Item Value Reference Range Interpretation Comments U Cannab Scr (test Negative *NA*(10/31/17 code = U Cannab Scr) 5:01 PM) [facility] [id number] 22:01:00 Test Item Value Reference Range Interpretation Comments U Indu Scr (test code Negative *NA*(10/31/17 = U Indu Scr) 5:01 PM) [facility] [id number] 22:01:00 Test Item Value Reference Range Interpretation Comments U Amph Scr (test code Negative *NA*(10/31/17 = U Amph Scr) 5:01 PM) [facility] [id number] 22:01:00 Test Item Value Reference Range Interpretation Comments U Cocaine Scr (test Negative *NA*(10/31/17 code = U Cocaine Scr) 5:01 PM) [facility] [id number] 22:01:00 Test Item Value Reference Range Interpretation Comments U Benzodiaz Scr (test Negative *NA*(10/31/17 code = U Benzodiaz Scr) 5:01 PM) [facility] [id number] 22:01:00 Test Item Value Reference Range Interpretation Comments UA CaOx Judy (test code = UA Moderate /HPF CaOx Judy) [facility] [id number] 22:01:00 Test Item Value Reference Range Interpretation Comments UA Bacteria (test code = UA Moderate /HPF Bacteria) [facility] [id number] 22:01:00 Test Item Value Reference Range Interpretation Comments UA Mucus (test code = UA Mucus) Few /LPF [facility] [id number] 22:01:00 Test Item Value Reference Range Interpretation Comments UA WBC (test code = 7 See_Comment [Automa kuldip message] The UA WBC) system which ge nerated this result transmit kuldip reference range : <=5. The reference range was not used to interpr et this result as abiodun l/abnormal. [facility] [id number] 22:01:00 Test Item Value Reference Range Interpretation Comments UA RBC (test code = 3 See_Comment [Automa kuldip message] The UA RBC) system which ge nerated this result transmit kuldip reference range : <=2. The reference range was not used to interpr et this result as abiodun l/abnormal. [facility] [id number] 22:01:00 Test Item Value Reference Range Interpretation Comments UA Sq Epi (test code = UA Sq Epi) Few /LPF [facility] [id number] 22:01:00 Test Item Value Reference Range Interpretation Comments UA Leuk Est (test Negative (10/31/17 5:01 code = UA Leuk Est) PM) [facility] [id number] 22:01:00 Test Item Value Reference Range Interpretation Comments UA Urobilinogen (test code = UA 4.0 0.1-1.0 Urobilinogen) [facility] [id number] 22:01:00 Test Item Value Reference Range Interpretation Comments UA Nitrite (test code Negative (10/31/17 5:01 = UA Nitrite) PM) [facility] AND [id number] 22:01:00 Test Item Value Reference Range Interpretation Comments UA Ketones (test code = UA Ketones) 20 mg/dL [facility] AND [id number] 22:01:00 Test Item Value Reference Range Interpretation Comments UA Glucose (test code = UA Negative mg/dL Glucose) [facility] AND [id number] 22:01:00 Test Item Value Reference Range Interpretation Comments UA Turbidity (test code Slight *ABN*(10/31/17 = UA Turbidity) 5:01 PM) [facility] AND [id number] 22:01:00 Test Item Value Reference Range Interpretation Comments UA Color (test code = Yellow *NA*(10/31/17 5:01 UA Color) PM) [facility] AND [id number] 22:01:00 Test Item Value Reference Range Interpretation Comments UA Blood (test code = Negative (10/31/17 5:01 UA Blood) PM) [facility] AND [id number] 22:01:00 Test Item Value Reference Range Interpretation Comments UA Bili (test code = Negative *NA*(10/31/17 UA Bili) 5:01 PM) [facility] AND [id number] 22:01:00 Test Item Value Reference Range Interpretation Comments UA Protein (test code = UA Negative mg/dL Protein) [facility] AND [id number] 22:01:00 Test Item Value Reference Range Interpretation Comments UA pH (test code = UA pH) 6.0 1 5.0-8.0 [facility] AND [id number] 22:01:00 Test Item Value Reference Range Interpretation Comments UA Spec Grav (test code = UA Spec 1.014 1 Grav) [facility] [id number] 22:01:00 Test Item Value Reference Range Interpretation Comments Culture: Urine (test 50,000 - 100,000 code = Culture: Urine) CFU/mL Skin [facility] [id number] 22:01:00 Test Item Value Reference Range Interpretation Comments UDS Note (test code = See Note *NA*(10/31/17 UDS Note) 5:01 PM) [facility] [id number] 22:01:00 Test Item Value Reference Range Interpretation Comments U Phencyclidine Scr (test Negative *NA*(10/31/17 code = U Phencyclidine 5:01 PM) Scr) [facility] [id number] 22:01:00 Test Item Value Reference Range Interpretation Comments U Opiate Scr (test Negative *NA*(10/31/17 code = U Opiate Scr) 5:01 PM) [facility] [id number] 22:01:00 Test Item Value Reference Range Interpretation Comments U Cannab Scr (test Negative *NA*(10/31/17 code = U Cannab Scr) 5:01 PM) [facility] [id number] 22:01:00 Test Item Value Reference Range Interpretation Comments U Indu Scr (test code Negative *NA*(10/31/17 = U Indu Scr) 5:01 PM) [facility] [id number] 22:01:00 Test Item Value Reference Range Interpretation Comments U Amph Scr (test code Negative *NA*(10/31/17 = U Amph Scr) 5:01 PM) [facility] [id number] 22:01:00 Test Item Value Reference Range Interpretation Comments U Cocaine Scr (test Negative *NA*(10/31/17 code = U Cocaine Scr) 5:01 PM) [facility] [id number] 22:01:00 Test Item Value Reference Range Interpretation Comments U Benzodiaz Scr (test Negative *NA*(10/31/17 code = U Benzodiaz Scr) 5:01 PM) [facility] [id number] 22:01:00 Test Item Value Reference Range Interpretation Comments UA CaOx Judy (test code = UA Moderate /HPF CaOx Judy) [facility] [id number] 22:01:00 Test Item Value Reference Range Interpretation Comments UA Bacteria (test code = UA Moderate /HPF Bacteria) [facility] [id number] 22:01:00 Test Item Value Reference Range Interpretation Comments UA Mucus (test code = UA Mucus) Few /LPF [facility] [id number] 22:01:00 Test Item Value Reference Range Interpretation Comments UA WBC (test code = 7 See_Comment [Automa kuldip message] The UA WBC) system which ge nerated this result transmit kuldip reference range : <=5. The reference range was not used to interpr et this result as abiodun l/abnormal. [facility] AND [id number] 22:01:00 Test Item Value Reference Range Interpretation Comments UA RBC (test code = 3 See_Comment [Automa kuldip message] The UA RBC) system which ge nerated this result transmit kuldip reference range : <=2. The reference range was not used to interpr et this result as abiodun l/abnormal. [facility] AND [id number] 22:01:00 Test Item Value Reference Range Interpretation Comments UA Sq Epi (test code = UA Sq Epi) Few /LPF [facility] AND [id number] 22:01:00 Test Item Value Reference Range Interpretation Comments UA Leuk Est (test Negative (10/31/17 5:01 code = UA Leuk Est) PM) [facility] AND [id number] 22:01:00 Test Item Value Reference Range Interpretation Comments UA Urobilinogen (test code = UA 4.0 0.1-1.0 Urobilinogen) [facility] AND [id number] 22:01:00 Test Item Value Reference Range Interpretation Comments UA Nitrite (test code Negative (10/31/17 5:01 = UA Nitrite) PM) [facility] AND [id number] 22:01:00 Test Item Value Reference Range Interpretation Comments UA Ketones (test code = UA Ketones) 20 mg/dL [facility] AND [id number] 22:01:00 Test Item Value Reference Range Interpretation Comments UA Glucose (test code = UA Negative mg/dL Glucose) [facility] AND [id number] 22:01:00 Test Item Value Reference Range Interpretation Comments UA Turbidity (test code Slight *ABN*(10/31/17 = UA Turbidity) 5:01 PM) [facility] AND [id number] 22:01:00 Test Item Value Reference Range Interpretation Comments UA Color (test code = Yellow *NA*(10/31/17 5:01 UA Color) PM) [facility] [id number] 22:01:00 Test Item Value Reference Range Interpretation Comments UA Blood (test code = Negative (10/31/17 5:01 UA Blood) PM) [facility] [id number] 22:01:00 Test Item Value Reference Range Interpretation Comments UA Bili (test code = Negative *NA*(10/31/17 UA Bili) 5:01 PM) [facility] [id number] 22:01:00 Test Item Value Reference Range Interpretation Comments UA Protein (test code = UA Negative mg/dL Protein) [facility] [id number] 22:01:00 Test Item Value Reference Range Interpretation Comments UA pH (test code = UA pH) 6.0 1 5.0-8.0 [facility] [id number] 22:01:00 Test Item Value Reference Range Interpretation Comments UA Spec Grav (test code = UA Spec 1.014 1 Grav) [facility] [id number] 22:01:00 Test Item Value Reference Range Interpretation Comments Culture: Urine (test 50,000 - 100,000 code = Culture: Urine) CFU/mL Skin [facility] [id number] 22:01:00 Test Item Value Reference Range Interpretation Comments UDS Note (test code = See Note *NA*(10/31/17 UDS Note) 5:01 PM) [facility] [id number] 22:01:00 Test Item Value Reference Range Interpretation Comments U Phencyclidine Scr (test Negative *NA*(10/31/17 code = U Phencyclidine 5:01 PM) Scr) [facility] [id number] 22:01:00 Test Item Value Reference Range Interpretation Comments U Opiate Scr (test Negative *NA*(10/31/17 code = U Opiate Scr) 5:01 PM) [facility] [id number] 22:01:00 Test Item Value Reference Range Interpretation Comments U Cannab Scr (test Negative *NA*(10/31/17 code = U Cannab Scr) 5:01 PM) [facility] [id number] 22:01:00 Test Item Value Reference Range Interpretation Comments U Indu Scr (test code Negative *NA*(10/31/17 = U Indu Scr) 5:01 PM) [facility] [id number] 22:01:00 Test Item Value Reference Range Interpretation Comments U Amph Scr (test code Negative *NA*(10/31/17 = U Amph Scr) 5:01 PM) [facility] [id number] 22:01:00 Test Item Value Reference Range Interpretation Comments U Cocaine Scr (test Negative *NA*(10/31/17 code = U Cocaine Scr) 5:01 PM) [facility] [id number] 22:01:00 Test Item Value Reference Range Interpretation Comments U Benzodiaz Scr (test Negative *NA*(10/31/17 code = U Benzodiaz Scr) 5:01 PM) [facility] [id number] 22:01:00 Test Item Value Reference Range Interpretation Comments UA CaOx Judy (test code = UA Moderate /HPF CaOx Ujdy) [facility] [id number] 22:01:00 Test Item Value Reference Range Interpretation Comments UA Bacteria (test code = UA Moderate /HPF Bacteria) [facility] [id number] 22:01:00 Test Item Value Reference Range Interpretation Comments UA Mucus (test code = UA Mucus) Few /LPF [facility] [id number] 22:01:00 Test Item Value Reference Range Interpretation Comments UA WBC (test code = 7 See_Comment [Automa kuldip message] The UA WBC) system which ge nerated this result transmit kuldip reference range : <=5. The reference range was not used to interpr et this result as abiodun l/abnormal. [facility] [id number] 22:01:00 Test Item Value Reference Range Interpretation Comments UA RBC (test code = 3 See_Comment [Automa kuldip message] The UA RBC) system which ge nerated this result transmit kuldip reference range : <=2. The reference range was not used to interpr et this result as abiodun l/abnormal. [facility] [id number] 22:01:00 Test Item Value Reference Range Interpretation Comments UA Sq Epi (test code = UA Sq Epi) Few /LPF [facility] [id number] 22:01:00 Test Item Value Reference Range Interpretation Comments UA Leuk Est (test Negative (8/8/18 5:01 code = UA Leuk Est) PM) [facility] AND [id number] 22:01:00 Test Item Value Reference Range Interpretation Comments UA Urobilinogen (test code = UA 4.0 0.1-1.0 Urobilinogen) [facility] AND [id number] 22:01:00 Test Item Value Reference Range Interpretation Comments UA Nitrite (test code Negative (10/31/17 5:01 = UA Nitrite) PM) [facility] AND [id number] 22:01:00 Test Item Value Reference Range Interpretation Comments UA Ketones (test code = UA Ketones) 20 mg/dL [facility] AND [id number] 22:01:00 Test Item Value Reference Range Interpretation Comments UA Glucose (test code = UA Negative mg/dL Glucose) [facility] AND [id number] 22:01:00 Test Item Value Reference Range Interpretation Comments UA Turbidity (test code Slight *ABN*(10/31/17 = UA Turbidity) 5:01 PM) [facility] AND [id number] 22:01:00 Test Item Value Reference Range Interpretation Comments UA Color (test code = Yellow *NA*(10/31/17 5:01 UA Color) PM) [facility] AND [id number] 22:01:00 Test Item Value Reference Range Interpretation Comments UA Blood (test code = Negative (10/31/17 5:01 UA Blood) PM) [facility] AND [id number] 22:01:00 Test Item Value Reference Range Interpretation Comments UA Bili (test code = Negative *NA*(10/31/17 UA Bili) 5:01 PM) [facility] AND [id number] 22:01:00 Test Item Value Reference Range Interpretation Comments UA Protein (test code = UA Negative mg/dL Protein) [facility] AND [id number] 22:01:00 Test Item Value Reference Range Interpretation Comments UA pH (test code = UA pH) 6.0 1 5.0-8.0 [facility] AND [id number] 22:01:00 Test Item Value Reference Range Interpretation Comments UA Spec Grav (test code = UA Spec 1.014 1 Grav) [facility] [id number] 22:01:00 Test Item Value Reference Range Interpretation Comments Culture: Urine (test 50,000 - 100,000 code = Culture: Urine) CFU/mL Skin [facility] [id number] 22:01:00 Test Item Value Reference Range Interpretation Comments UDS Note (test code = See Note *NA*(10/31/17 UDS Note) 5:01 PM) [facility] [id number] 22:01:00 Test Item Value Reference Range Interpretation Comments U Phencyclidine Scr (test Negative *NA*(10/31/17 code = U Phencyclidine 5:01 PM) Scr) [facility] [id number] 22:01:00 Test Item Value Reference Range Interpretation Comments U Opiate Scr (test Negative *NA*(10/31/17 code = U Opiate Scr) 5:01 PM) [facility] [id number] 22:01:00 Test Item Value Reference Range Interpretation Comments U Cannab Scr (test Negative *NA*(10/31/17 code = U Cannab Scr) 5:01 PM) [facility] [id number] 22:01:00 Test Item Value Reference Range Interpretation Comments U Indu Scr (test code Negative *NA*(10/31/17 = U Indu Scr) 5:01 PM) [facility] [id number] 22:01:00 Test Item Value Reference Range Interpretation Comments U Amph Scr (test code Negative *NA*(10/31/17 = U Amph Scr) 5:01 PM) [facility] [id number] 22:01:00 Test Item Value Reference Range Interpretation Comments U Cocaine Scr (test Negative *NA*(10/31/17 code = U Cocaine Scr) 5:01 PM) [facility] [id number] 22:01:00 Test Item Value Reference Range Interpretation Comments U Benzodiaz Scr (test Negative *NA*(10/31/17 code = U Benzodiaz Scr) 5:01 PM) [facility] [id number] 22:01:00 Test Item Value Reference Range Interpretation Comments UA CaOx Judy (test code = UA Moderate /HPF CaOx Judy) [facility] [id number] 22:01:00 Test Item Value Reference Range Interpretation Comments UA Bacteria (test code = UA Moderate /HPF Bacteria) [facility] AND [id number] 22:01:00 Test Item Value Reference Range Interpretation Comments UA Mucus (test code = UA Mucus) Few /LPF [facility] AND [id number] 22:01:00 Test Item Value Reference Range Interpretation Comments UA WBC (test code = 7 See_Comment [Automa kuldip message] The UA WBC) system which ge nerated this result transmit kuldip reference range : <=5. The reference range was not used to interpr et this result as abiodun l/abnormal. [facility] AND [id number] 22:01:00 Test Item Value Reference Range Interpretation Comments UA RBC (test code = 3 See_Comment [Automa kuldip message] The UA RBC) system which ge nerated this result transmit kuldip reference range : <=2. The reference range was not used to interpr et this result as abiodun l/abnormal. [facility] AND [id number] 22:01:00 Test Item Value Reference Range Interpretation Comments UA Sq Epi (test code = UA Sq Epi) Few /LPF [facility] AND [id number] 22:01:00 Test Item Value Reference Range Interpretation Comments UA Leuk Est (test Negative (10/31/17 5:01 code = UA Leuk Est) PM) [facility] AND [id number] 22:01:00 Test Item Value Reference Range Interpretation Comments UA Urobilinogen (test code = UA 4.0 0.1-1.0 Urobilinogen) [facility] AND [id number] 22:01:00 Test Item Value Reference Range Interpretation Comments UA Nitrite (test code Negative (10/31/17 5:01 = UA Nitrite) PM) [facility] AND [id number] 22:01:00 Test Item Value Reference Range Interpretation Comments UA Ketones (test code = UA Ketones) 20 mg/dL [facility] AND [id number] 22:01:00 Test Item Value Reference Range Interpretation Comments UA Glucose (test code = UA Negative mg/dL Glucose) [facility] AND [id number] 22:01:00 Test Item Value Reference Range Interpretation Comments UA Turbidity (test code Slight *ABN*(10/31/17 = UA Turbidity) 5:01 PM) [facility] AND [id number] 22:01:00 Test Item Value Reference Range Interpretation Comments UA Color (test code = Yellow *NA*(10/31/17 5:01 UA Color) PM) [facility] AND [id number] 22:01:00 Test Item Value Reference Range Interpretation Comments UA Blood (test code = Negative (10/31/17 5:01 UA Blood) PM) [facility] AND [id number] 22:01:00 Test Item Value Reference Range Interpretation Comments UA Bili (test code = Negative *NA*(10/31/17 UA Bili) 5:01 PM) [facility] AND [id number] 22:01:00 Test Item Value Reference Range Interpretation Comments UA Protein (test code = UA Negative mg/dL Protein) [facility] AND [id number] 22:01:00 Test Item Value Reference Range Interpretation Comments UA pH (test code = UA pH) 6.0 1 5.0-8.0 [facility] AND [id number] 22:01:00 Test Item Value Reference Range Interpretation Comments UA Spec Grav (test code = UA Spec 1.014 1 Grav) [facility] [id number] 22:01:00 Test Item Value Reference Range Interpretation Comments Culture: Urine (test 50,000 - 100,000 code = Culture: Urine) CFU/mL Skin [facility]CARD[facility] [id number] 20:27:00 Test Item Value Reference Range Interpretation Comments Total CK (test code = Total CK) 110 12-191 [facility] [id number] 20:27:00 Test Item Value Reference Range Interpretation Comments Troponin-I (test code no gt See_Comment [Auto mated message] The = Troponin-I) system which g enerated this result transmit kuldip reference range : <=0.40. The reference r nilam was not used to interpr et this result as abiodun l/abnormal. [facility] Ho[id number] 20:27:00 Test Item Value Reference Range Interpretation Comments AGAP (test code = AGAP) 12.4 10.0-20.0 [id number] 20:27:00 Test Item Value Reference Range Interpretation Comments eGFR (test code = eGFR) 84 [facility] He[id number] 20:27:00 Test Item Value Reference Range Interpretation Comments Calcium Lvl (test code = Calcium Lvl) 10.3 8.5-10.5 [facility] H[id number] 20:27:00 Test Item Value Reference Range Interpretation Comments Creatinine Lvl (test code = Creatinine 0.96 0.50-1.40 Lvl) [facility] [id number] 20:27:00 Test Item Value Reference Range Interpretation Comments Potassium Lvl (test code = Potassium 3.4 3.5-5.1 Lvl) [facility] H[id number] 20:27:00 Test Item Value Reference Range Interpretation Comments BUN (test code = BUN) 9 7-22 [facility] H[id number] 20:27:00 Test Item Value Reference Range Interpretation Comments Glucose Lvl (test code = Glucose Lvl) 96 70-99 [facility] H[id number] 20:27:00 Test Item Value Reference Range Interpretation Comments Sodium Lvl (test code = Sodium Lvl) 139 135-145 [facility] HealthNwgruepFCLCRSAODNOX7837-05-96 20:27:00 Test Item Value Reference Range Interpretation Comments Chloride Lvl (test code = Chloride Lvl) 102 95-109 [facility] HealthOfbvdjwSCNZNREFLZMV9183-01-82 20:27:00 Test Item Value Reference Range Interpretation Comments CO2 (test code = CO2) 28 24-32 [id number] 20:27:00 Test Item Value Reference Range Interpretation Comments S Preg (test code = S Negative *NA*(10/31/17 Preg) 3:27 PM) [id number] 20:27:00 Test Item Value Reference Range Interpretation Comments Lymphocytes (test code = Lymphocytes) 18.7 20.0-40.0 [facility] S[id number] 20:27:00 Test Item Value Reference Range Interpretation Comments Monocytes (test code = Monocytes) 9.1 2.0-12.0 [facility] [id number] 20:27:00 Test Item Value Reference Range Interpretation Comments Neutrophils # (test code = Neutrophils 6.6 1.5-8.1 #) [facility] SystemLuehhavTEMTRWQSVT2618-28-50 20:27:00 Test Item Value Reference Range Interpretation Comments Lymphocytes # (test code = Lymphocytes 1.8 1.0-5.5 #) [facility] [id number] 20:27:00 Test Item Value Reference Range Interpretation Comments Segs (test code = Segs) 70.6 45.0-75.0 [facility] [facility]XvtqwvjAELUNYPEEQ1478-97-38 20:27:00 Test Item Value Reference Range Interpretation Comments Eosinophils (test code = 1.3 See_Comment [A utomated message] The Eosinophils) system which ge nerated this result tra nsmitted reference range : <=4.0. The reference r nilam was not used to int erpret this result as normal/abnormal . [facility] SystemQhonzbyVCRXBGONZT9523-34-53 20:27:00 Test Item Value Reference Range Interpretation Comments Basophils (test code = 0.3 See_Comment [Aut omated message] The Basophils) system which ge nerated this result tra nsmitted reference range : <=1.0. The reference r nilam was not used to int erpret this result as normal/abnormal . [facility] SystemBufevjqFBKXZSZFDT6020-46-47 20:27:00 Test Item Value Reference Range Interpretation Comments Monocytes # (test code 0.9 See_Comment [Aut omated message] The = Monocytes #) system which generated this result tra nsmitted reference range : <=0.8. The reference r nilam was not used to int erpret this result as normal/abnormal . [facility] SystemFsgelwlCURSWDLBEQ1175-99-87 20:27:00 Test Item Value Reference Range Interpretation Comments Eosinophils # (test code 0.1 See_Comment [A utomated message] The = Eosinophils #) system whic h generated this result tra nsmitted reference range : <=0.5. The reference r nilam was not used to int erpret this result as normal/abnormal . [facility] SystemIhjwuuyNKMNQJBEPK6397-40-99 20:27:00 Test Item Value Reference Range Interpretation Comments PT (test code = PT) 15.7 s 12.0-14.7 [facility] SystemAyfwbshGGQQQHEVSM4218-21-73 20:27:00 Test Item Value Reference Range Interpretation Comments INR (test code = INR) 1.24 1 0.85-1.17 [facility] SystemArojprjVGPFJJXCEM2326-35-79 20:27:00 Test Item Value Reference Range Interpretation Comments PTT (test code = PTT) 31.0 s 22.9-35.8 [facility] SystemKeyvrbfCHYLDQMVTF7677-90-90 20:27:00 Test Item Value Reference Range Interpretation Comments Hgb (test code = Hgb) 13.5 12.0-16.0 [facility] SystemMqegfcdPGJHHTZXXV2608-18-35 20:27:00 Test Item Value Reference Range Interpretation Comments RBC (test code = RBC) 4.35 4.20-5.40 [facility] SystemGndqfszHRYLVJTOZN1215-59-18 20:27:00 Test Item Value Reference Range Interpretation Comments RDW (test code = RDW) 13.4 11.5-14.5 [facility] SystemPkupasgOCACPTMIJR1067-59-15 20:27:00 Test Item Value Reference Range Interpretation Comments WBC (test code = WBC) 9.4 3.7-10.4 [facility] SystemBdqwbdcXCQUTTCROC4717-66-54 20:27:00 Test Item Value Reference Range Interpretation Comments MCHC (test code = MCHC) 34.7 32.0-36.0 [facility] SystemDmazrfzIXHKMNVIQG6757-29-12 20:27:00 Test Item Value Reference Range Interpretation Comments MCH (test code = MCH) 31.0 pg 27.0-31.0 [facility] SystemFvxkpdqWNCXOXMMSL7143-69-28 20:27:00 Test Item Value Reference Range Interpretation Comments Hct (test code = Hct) 38.8 36.0-48.0 [facility] SystemSslomxbHULJBUAEEC4083-11-01 20:27:00 Test Item Value Reference Range Interpretation Comments MCV (test code = MCV) 89.4 80.0-98.0 [facility] SystemJrqdyfyJUYJNCEOLF3743-61-02 20:27:00 Test Item Value Reference Range Interpretation Comments MPV (test code = MPV) 8.2 7.4-10.4 [facility] SystemQuralygPNSZRFFBQS1902-52-81 20:27:00 Test Item Value Reference Range Interpretation Comments Platelet (test code = Platelet) 238 133-450 [facility] CenterAjemakeODBPTKUPQE7341-13-86 20:27:00 Test Item Value Reference Range Interpretation Comments Ethanol Lvl (test code = Ethanol Lvl) no gt [facility] HospitalIrijfgbONYYJMPMHP4997-02-47 20:27:00 Test Item Value Reference Range Interpretation Comments Etoh (%) (test code = Etoh (%)) no gt [facility] HospitalannCARDIAC NUFOXXO7479-70-14 20:27:00 Test Item Value Reference Range Interpretation Comments Total CK (test code = Total CK) 110 12-191 [facility] HYCVZZV6780-78-04 20:27:00 Test Item Value Reference Range Interpretation Comments Troponin-I (test code no gt See_Comment [Auto mated message] The = Troponin-I) system which g enerated this result transmit kuldip reference range : <=0.40. The reference r nilam was not used to interpr et this result as abiodun l/abnormal. [facility] HealthNpilhsaHYZSLBVLTMLH6013-13-53 20:27:00 Test Item Value Reference Range Interpretation Comments AGAP (test code = AGAP) 12.4 10.0-20.0 [facility] HealthEkhgtgsNBZUVFHOAMTI2115-61-93 20:27:00 Test Item Value Reference Range Interpretation Comments eGFR (test code = eGFR) 84 [facility] HealthJjtrauxOBIEMYTPLTBD2212-85-07 20:27:00 Test Item Value Reference Range Interpretation Comments Calcium Lvl (test code = Calcium Lvl) 10.3 8.5-10.5 [facility] HealthXzzeztqKQKKODWQNYKZ8414-72-07 20:27:00 Test Item Value Reference Range Interpretation Comments Creatinine Lvl (test code = Creatinine 0.96 0.50-1.40 Lvl) [facility] HealthJojmvuzTSTLLFKJVXLO7727-39-74 20:27:00 Test Item Value Reference Range Interpretation Comments Potassium Lvl (test code = Potassium 3.4 3.5-5.1 Lvl) [facility] HealthKhjbbjxQBGBOSZTSSYC4836-21-74 20:27:00 Test Item Value Reference Range Interpretation Comments BUN (test code = BUN) 9 7-22 [facility] HealthIeqtnzuHTSTCHYADGKV1012-31-31 20:27:00 Test Item Value Reference Range Interpretation Comments Glucose Lvl (test code = Glucose Lvl) 96 70-99 [facility] HealthQngvfykVURZMIMRCIWN6809-48-59 20:27:00 Test Item Value Reference Range Interpretation Comments Sodium Lvl (test code = Sodium Lvl) 139 135-145 [facility] HealthVmjfskkHUPICSNJGJWY0404-42-41 20:27:00 Test Item Value Reference Range Interpretation Comments Chloride Lvl (test code = Chloride Lvl) 102 95-109 [facility] HealthNcdkrtiDVJUCIIXKSUK3435-58-22 20:27:00 Test Item Value Reference Range Interpretation Comments CO2 (test code = CO2) 28 24-32 [place] [id number] 20:27:00 Test Item Value Reference Range Interpretation Comments S Preg (test code = S Negative *NA*(10/31/17 Preg) 3:27 PM) [facility] SystemWbdxhmyUQPCFTZKYO9510-90-64 20:27:00 Test Item Value Reference Range Interpretation Comments Lymphocytes (test code = Lymphocytes) 18.7 20.0-40.0 [facility] SystemFzerwjwOUFNCTIOWZ5566-09-99 20:27:00 Test Item Value Reference Range Interpretation Comments Monocytes (test code = Monocytes) 9.1 2.0-12.0 [facility] SystemJytckjaZUSMEOEPSL6123-45-36 20:27:00 Test Item Value Reference Range Interpretation Comments Neutrophils # (test code = Neutrophils 6.6 1.5-8.1 #) [facility] SystemXbgshrnVWQWNYMCJS7554-17-58 20:27:00 Test Item Value Reference Range Interpretation Comments Lymphocytes # (test code = Lymphocytes 1.8 1.0-5.5 #) [facility] SystemYzguvqkDWEQHHIBQD0201-29-09 20:27:00 Test Item Value Reference Range Interpretation Comments Segs (test code = Segs) 70.6 45.0-75.0 [facility] SystemCjuwfieSQXXBBCSPE9650-80-61 20:27:00 Test Item Value Reference Range Interpretation Comments Eosinophils (test code = 1.3 See_Comment [A utomated message] The Eosinophils) system which nerated this result tra nsmitted reference range : <=4.0. The reference r nilam was not used to int erpret this result as normal/abnormal . [facility] SystemYuhagywITQJMWSEBA2609-77-04 20:27:00 Test Item Value Reference Range Interpretation Comments Basophils (test code = 0.3 See_Comment [Aut omated message] The Basophils) system which ge nerated this result tra nsmitted reference range : <=1.0. The reference r nilam was not used to int erpret this result as normal/abnormal . [facility] SystemTtihqsdOMRQVBFJNB3919-21-26 20:27:00 Test Item Value Reference Range Interpretation Comments Monocytes # (test code 0.9 See_Comment [Aut omated message] The = Monocytes #) system which generated this result tra nsmitted reference range : <=0.8. The reference r nilam was not used to int erpret this result as normal/abnormal . [facility] SystemAwdohugTAZWMIFGZY7077-12-24 20:27:00 Test Item Value Reference Range Interpretation Comments Eosinophils # (test code 0.1 See_Comment [A utomated message] The = Eosinophils #) system whic h generated this result tra nsmitted reference range : <=0.5. The reference r nilam was not used to int erpret this result as normal/abnormal . [facility] SystemYrlgknxDSFRKNIHZC0759-63-26 20:27:00 Test Item Value Reference Range Interpretation Comments PT (test code = PT) 15.7 s 12.0-14.7 [facility] SystemNutnlvoUIGWJUTVCY3258-60-95 20:27:00 Test Item Value Reference Range Interpretation Comments INR (test code = INR) 1.24 1 0.85-1.17 [facility] SystemCrcwpkoAAJSTCCPKF6553-53-29 20:27:00 Test Item Value Reference Range Interpretation Comments PTT (test code = PTT) 31.0 s 22.9-35.8 [facility] SystemCqitgcsKAGOUHVBIJ5718-28-49 20:27:00 Test Item Value Reference Range Interpretation Comments Hgb (test code = Hgb) 13.5 12.0-16.0 [facility] SystemShhxjctTDYIYFHAVS9493-70-28 20:27:00 Test Item Value Reference Range Interpretation Comments RBC (test code = RBC) 4.35 4.20-5.40 [facility] SystemVgxkxvnWVRDCEWXKO0035-18-83 20:27:00 Test Item Value Reference Range Interpretation Comments RDW (test code = RDW) 13.4 11.5-14.5 [facility] SystemDwuqyvpGNFGADQOPZ9263-49-37 20:27:00 Test Item Value Reference Range Interpretation Comments WBC (test code = WBC) 9.4 3.7-10.4 [facility] SystemOlhnflfIRLYUVHVWZ4938-92-14 20:27:00 Test Item Value Reference Range Interpretation Comments MCHC (test code = MCHC) 34.7 32.0-36.0 [facility] SystemDqkzgxgOSLOZHQWUM3059-38-84 20:27:00 Test Item Value Reference Range Interpretation Comments MCH (test code = MCH) 31.0 pg 27.0-31.0 [facility] HospitalQpmpcqrEABXZNRVVX6422-19-97 20:27:00 Test Item Value Reference Range Interpretation Comments Hct (test code = Hct) 38.8 36.0-48.0 [facility]MwnndreONCEORZWJG3667-86-23 20:27:00 Test Item Value Reference Range Interpretation Comments MCV (test code = MCV) 89.4 80.0-98.0 [facility] HospitalDtgojkiFMDFNFQCNL3393-80-45 20:27:00 Test Item Value Reference Range Interpretation Comments MPV (test code = MPV) 8.2 7.4-10.4 [facility] HospitalQetltjuJZBCZTMQOS5346-92-89 20:27:00 Test Item Value Reference Range Interpretation Comments Platelet (test code = Platelet) 238 133-450 [facility] CenterSbxegbpKSLQCSZTFW5466-82-69 20:27:00 Test Item Value Reference Range Interpretation Comments Ethanol Lvl (test code = Ethanol Lvl) no gt [facility] HospitalRsrhpgcBOAKZRVULO6397-35-57 20:27:00 Test Item Value Reference Range Interpretation Comments Etoh (%) (test code = Etoh (%)) no gt [facility] HospitalannCARDIAC OAZHSAB9141-91-16 20:27:00 Test Item Value Reference Range Interpretation Comments Total CK (test code = Total CK) 110 12-191 [facility] CenterC[facility] KTUXVIV8495-22-96 20:27:00 Test Item Value Reference Range Interpretation Comments Troponin-I (test code no gt See_Comment [Auto mated message] The = Troponin-I) system which g enerated this result transmit kuldip reference range : <=0.40. The reference r nilam was not used to interpr et this result as abiodun l/abnormal. [facility] HospitalVikcmplRMXVNKWBODEY9588-01-71 20:27:00 Test Item Value Reference Range Interpretation Comments AGAP (test code = AGAP) 12.4 10.0-20.0 [facility] HospitalHdlvqoqTYMFLYZCAGKV5733-54-47 20:27:00 Test Item Value Reference Range Interpretation Comments eGFR (test code = eGFR) 84 [facility] HospitalMaqwgljLQRHEYDHARFB9760-48-44 20:27:00 Test Item Value Reference Range Interpretation Comments Calcium Lvl (test code = Calcium Lvl) 10.3 8.5-10.5 [facility] HealthGkndpfzETQWKBMLZKRK9141-05-05 20:27:00 Test Item Value Reference Range Interpretation Comments Creatinine Lvl (test code = Creatinine 0.96 0.50-1.40 Lvl) [facility] HealthUpqkprrLIIFUNPJAKSS4657-28-05 20:27:00 Test Item Value Reference Range Interpretation Comments Potassium Lvl (test code = Potassium 3.4 3.5-5.1 Lvl) [facility] HealthMmqipnqGFTJYGBFSKAE6410-83-54 20:27:00 Test Item Value Reference Range Interpretation Comments BUN (test code = BUN) 9 7-22 [facility] HealthGjegchxPDBYIHAPTSNU5373-51-51 20:27:00 Test Item Value Reference Range Interpretation Comments Glucose Lvl (test code = Glucose Lvl) 96 70-99 [facility] HealthCdmpndsTOLOJCIYDKVT0517-07-39 20:27:00 Test Item Value Reference Range Interpretation Comments Sodium Lvl (test code = Sodium Lvl) 139 135-145 [facility] HealthDsgyoihLHJBWTWVFFXH5427-95-10 20:27:00 Test Item Value Reference Range Interpretation Comments Chloride Lvl (test code = Chloride Lvl) 102 95-109 [facility] HealthFjwdmwhWSWZFLNYEPRM7778-12-63 20:27:00 Test Item Value Reference Range Interpretation Comments CO2 (test code = CO2) 28 24-32 [place] [id number] 20:27:00 Test Item Value Reference Range Interpretation Comments S Preg (test code = S Negative *NA*(10/31/17 Preg) 3:27 PM) [facility] SystemNibeatuILGLLJFBGF9873-14-35 20:27:00 Test Item Value Reference Range Interpretation Comments Lymphocytes (test code = Lymphocytes) 18.7 20.0-40.0 [facility] SystemAialkdqKKGTNRFEKX2982-04-29 20:27:00 Test Item Value Reference Range Interpretation Comments Monocytes (test code = Monocytes) 9.1 2.0-12.0 [facility] SystemZhwoiogTEMNKHOZOB7153-29-34 20:27:00 Test Item Value Reference Range Interpretation Comments Neutrophils # (test code = Neutrophils 6.6 1.5-8.1 #) [facility] SystemZlzfajcRZLKVPOIBD3220-26-44 20:27:00 Test Item Value Reference Range Interpretation Comments Lymphocytes # (test code = Lymphocytes 1.8 1.0-5.5 #) [facility] SystemYmjfyqcCKVYKRYKLQ1264-10-20 20:27:00 Test Item Value Reference Range Interpretation Comments Segs (test code = Segs) 70.6 45.0-75.0 [facility] SystemNcrcqpxDKJBVPOQEQ3902-78-97 20:27:00 Test Item Value Reference Range Interpretation Comments Eosinophils (test code = 1.3 See_Comment [A utomated message] The Eosinophils) system which ge nerated this result tra nsmitted reference range : <=4.0. The reference r nilam was not used to int erpret this result as normal/abnormal . [facility] SystemFccanldEXPKDPWVMQ0864-66-45 20:27:00 Test Item Value Reference Range Interpretation Comments Basophils (test code = 0.3 See_Comment [Aut omated message] The Basophils) system which ge nerated this result tra nsmitted reference range : <=1.0. The reference r nilam was not used to int erpret this result as normal/abnormal . [facility] SystemUpixcqbQIYCTNGDBS1160-84-29 20:27:00 Test Item Value Reference Range Interpretation Comments Monocytes # (test code 0.9 See_Comment [Aut omated message] The = Monocytes #) system which generated this result tra nsmitted reference range : <=0.8. The reference r nilam was not used to int erpret this result as normal/abnormal . [facility] SystemCvsbovpWNQLXKLFVQ1112-22-65 20:27:00 Test Item Value Reference Range Interpretation Comments Eosinophils # (test code 0.1 See_Comment [A utomated message] The = Eosinophils #) system whic h generated this result tra nsmitted reference range : <=0.5. The reference r nilam was not used to int erpret this result as normal/abnormal . [facility] SystemUmpwmgcBMUEJIWORI9110-41-31 20:27:00 Test Item Value Reference Range Interpretation Comments PT (test code = PT) 15.7 s 12.0-14.7 [facility] SystemNikxlmqETAJCRQSDU4513-31-95 20:27:00 Test Item Value Reference Range Interpretation Comments INR (test code = INR) 1.24 1 0.85-1.17 [facility] SystemWlblsztIPSPWFVDKJ3357-53-22 20:27:00 Test Item Value Reference Range Interpretation Comments PTT (test code = PTT) 31.0 s 22.9-35.8 [facility] SystemRnkuybhAIQUBILMCR0288-96-16 20:27:00 Test Item Value Reference Range Interpretation Comments Hgb (test code = Hgb) 13.5 12.0-16.0 [facility]TuikitaWFADYNQMIF7913-10-56 20:27:00 Test Item Value Reference Range Interpretation Comments RBC (test code = RBC) 4.35 4.20-5.40 [facility]YwrreqnTCUZWOSNXH9940-25-02 20:27:00 Test Item Value Reference Range Interpretation Comments RDW (test code = RDW) 13.4 11.5-14.5 [facility]OcgnfghSNQXJMTZYR2342-60-09 20:27:00 Test Item Value Reference Range Interpretation Comments WBC (test code = WBC) 9.4 3.7-10.4 [facility] HospitalDlddmvfBSITTLAJCU5087-19-15 20:27:00 Test Item Value Reference Range Interpretation Comments MCHC (test code = MCHC) 34.7 32.0-36.0 [facility] HospitalSezfkfvCABORDTMET7679-41-97 20:27:00 Test Item Value Reference Range Interpretation Comments MCH (test code = MCH) 31.0 pg 27.0-31.0 [facility] HospitalQnmodaiSDYLRTOZDV3241-14-66 20:27:00 Test Item Value Reference Range Interpretation Comments Hct (test code = Hct) 38.8 36.0-48.0 [facility]WyyptnmMJISBTTJAQ7771-10-55 20:27:00 Test Item Value Reference Range Interpretation Comments MCV (test code = MCV) 89.4 80.0-98.0 [facility] HospitalWzirdsaOICDTAZAQV5555-75-85 20:27:00 Test Item Value Reference Range Interpretation Comments MPV (test code = MPV) 8.2 7.4-10.4 [facility]OhiuemkQAOUYBYCLI8850-46-57 20:27:00 Test Item Value Reference Range Interpretation Comments Platelet (test code = Platelet) 238 133-450 [facility] CenterKnyvbeoSYHYYNLCUG3527-97-18 20:27:00 Test Item Value Reference Range Interpretation Comments Ethanol Lvl (test code = Ethanol Lvl) no gt [facility] HospitalPbqnvloXIPSSFIILL1065-68-78 20:27:00 Test Item Value Reference Range Interpretation Comments Etoh (%) (test code = Etoh (%)) no gt [facility] HospitalannCARDIAC TLWCDNC1613-35-60 20:27:00 Test Item Value Reference Range Interpretation Comments Total CK (test code = Total CK) 110 12-191 [facility] BCBDPYC5523-80-22 20:27:00 Test Item Value Reference Range Interpretation Comments Troponin-I (test code no gt See_Comment [Auto mated message] The = Troponin-I) system which g enerated this result transmit kuldip reference range : <=0.40. The reference r nilam was not used to interpr et this result as abiodun l/abnormal. [facility] HealthYqgljyxPPZQTTXBSMUR5775-58-38 20:27:00 Test Item Value Reference Range Interpretation Comments AGAP (test code = AGAP) 12.4 10.0-20.0 [facility] HealthYexunvpATVFNEBCIJAE3656-04-28 20:27:00 Test Item Value Reference Range Interpretation Comments eGFR (test code = eGFR) 84 [facility] HealthPnmuelgZQEDNGTSREMI6423-23-18 20:27:00 Test Item Value Reference Range Interpretation Comments Calcium Lvl (test code = Calcium Lvl) 10.3 8.5-10.5 [facility] HealthDbzvasbPSPVFZAHIWAT9141-10-99 20:27:00 Test Item Value Reference Range Interpretation Comments Creatinine Lvl (test code = Creatinine 0.96 0.50-1.40 Lvl) [facility] HealthVhorsnvSHRZVPTJQTUF5459-90-04 20:27:00 Test Item Value Reference Range Interpretation Comments Potassium Lvl (test code = Potassium 3.4 3.5-5.1 Lvl) [facility] HealthVyzacwzJQFOEIPMZAKW8204-88-61 20:27:00 Test Item Value Reference Range Interpretation Comments BUN (test code = BUN) 9 7-22 [facility] HealthSocysfaEDIGZDQYSJZK6453-89-86 20:27:00 Test Item Value Reference Range Interpretation Comments Glucose Lvl (test code = Glucose Lvl) 96 70-99 [facility] HealthXjefxwaRYUDUBXVLQOQ6342-44-47 20:27:00 Test Item Value Reference Range Interpretation Comments Sodium Lvl (test code = Sodium Lvl) 139 135-145 [facility] HealthWseihmhRGOHVRTXGRNK2042-11-32 20:27:00 Test Item Value Reference Range Interpretation Comments Chloride Lvl (test code = Chloride Lvl) 102 95-109 [facility] HealthRevxtxaUOQAOMZGNQYJ6520-69-83 20:27:00 Test Item Value Reference Range Interpretation Comments CO2 (test code = CO2) 28 24-32 [facility]ubpvYYZNRVKBACGFW2256-68-34 20:27:00 Test Item Value Reference Range Interpretation Comments S Preg (test code = S Negative *NA*(10/31/17 Preg) 3:27 PM) [facility] SystemIqmnyfdBKVEGKSHQJ9154-50-65 20:27:00 Test Item Value Reference Range Interpretation Comments Lymphocytes (test code = Lymphocytes) 18.7 20.0-40.0 [facility] SystemUidoxvzPJFWJRBEKG0734-27-91 20:27:00 Test Item Value Reference Range Interpretation Comments Monocytes (test code = Monocytes) 9.1 2.0-12.0 [facility] SystemAqvabwnWJSUGKXZUW1290-09-24 20:27:00 Test Item Value Reference Range Interpretation Comments Neutrophils # (test code = Neutrophils 6.6 1.5-8.1 #) [facility] SystemRymdedxMOPYZTRWEG9366-26-44 20:27:00 Test Item Value Reference Range Interpretation Comments Lymphocytes # (test code = Lymphocytes 1.8 1.0-5.5 #) [facility] SystemPrucxoxAXXUJHQFNF9308-49-65 20:27:00 Test Item Value Reference Range Interpretation Comments Segs (test code = Segs) 70.6 45.0-75.0 [facility] SystemNbbyqxeLJHZXITJXW9643-00-84 20:27:00 Test Item Value Reference Range Interpretation Comments Eosinophils (test code = 1.3 See_Comment [A utomated message] The Eosinophils) system which ge nerated this result tra nsmitted reference range : <=4.0. The reference r nilam was not used to int erpret this result as normal/abnormal . [facility] SystemOasekioKYJRLWWOGK3951-02-44 20:27:00 Test Item Value Reference Range Interpretation Comments Basophils (test code = 0.3 See_Comment [Aut omated message] The Basophils) system which ge nerated this result tra nsmitted reference range : <=1.0. The reference r nilam was not used to int erpret this result as normal/abnormal . [facility] SystemSyanzxbEMPBLLZPES5277-49-89 20:27:00 Test Item Value Reference Range Interpretation Comments Monocytes # (test code 0.9 See_Comment [Aut omated message] The = Monocytes #) system which generated this result tra nsmitted reference range : <=0.8. The reference r nilam was not used to int erpret this result as normal/abnormal . [facility] SystemQbrasvlYCGQBVCMBE3522-97-24 20:27:00 Test Item Value Reference Range Interpretation Comments Eosinophils # (test code 0.1 See_Comment [A utomated message] The = Eosinophils #) system whic h generated this result tra nsmitted reference range : <=0.5. The reference r nilam was not used to int erpret this result as normal/abnormal . [facility] SystemTqqdwffKPWZWKVJXB4811-40-15 20:27:00 Test Item Value Reference Range Interpretation Comments PT (test code = PT) 15.7 s 12.0-14.7 [facility] SystemAnscugrGAJRKVAHAL2225-80-37 20:27:00 Test Item Value Reference Range Interpretation Comments INR (test code = INR) 1.24 1 0.85-1.17 [facility] SystemTxuwleuDFSKUXEYKY7026-38-99 20:27:00 Test Item Value Reference Range Interpretation Comments PTT (test code = PTT) 31.0 s 22.9-35.8 [facility] SystemOqptqvcMPBVNNQZSS8263-22-04 20:27:00 Test Item Value Reference Range Interpretation Comments Hgb (test code = Hgb) 13.5 12.0-16.0 [facility] SystemVqoyjjrMOMMZPMXNL5444-43-21 20:27:00 Test Item Value Reference Range Interpretation Comments RBC (test code = RBC) 4.35 4.20-5.40 [facility] SystemEetqqotKWHYZSAQTS7291-38-37 20:27:00 Test Item Value Reference Range Interpretation Comments RDW (test code = RDW) 13.4 11.5-14.5 [facility] SystemJqlpifrDKSOUEUFMJ8119-62-05 20:27:00 Test Item Value Reference Range Interpretation Comments WBC (test code = WBC) 9.4 3.7-10.4 [facility] SystemZmuponaGKEBUVLYUS0194-83-17 20:27:00 Test Item Value Reference Range Interpretation Comments MCHC (test code = MCHC) 34.7 32.0-36.0 [facility] SystemCgeqacfFUIGCCLZET8812-71-70 20:27:00 Test Item Value Reference Range Interpretation Comments MCH (test code = MCH) 31.0 pg 27.0-31.0 [facility] SystemHbwzxlaYVUEBPXFAG9512-64-80 20:27:00 Test Item Value Reference Range Interpretation Comments Hct (test code = Hct) 38.8 36.0-48.0 [facility]OwztqmdYQMDYHAMCC0589-29-36 20:27:00 Test Item Value Reference Range Interpretation Comments MCV (test code = MCV) 89.4 80.0-98.0 [facility]NlyydcbXICJZZWJZC6527-18-27 20:27:00 Test Item Value Reference Range Interpretation Comments MPV (test code = MPV) 8.2 7.4-10.4 [facility]UbchnlnFPOYBGSYMS7714-13-64 20:27:00 Test Item Value Reference Range Interpretation Comments Platelet (test code = Platelet) 238 133-450 [facility] CenterUgtppgoVTDISAGNZE8922-11-40 20:27:00 Test Item Value Reference Range Interpretation Comments Ethanol Lvl (test code = Ethanol Lvl) no gt [facility] HospitalUsrzyweNUXJAYUZCS8267-12-74 20:27:00 Test Item Value Reference Range Interpretation Comments Etoh (%) (test code = Etoh (%)) no gt [facility] 05:19:00 Test Item Value Reference Range Interpretation Comments Troponin-I (test code no gt See_Comment [Auto mated message] The = Troponin-I) system which g enerated this result transmit kuldip reference range : <=0.40. The reference r nilam was not used to interpr et this result as abiodun l/abnormal. [facility] 05:19:00 Test Item Value Reference Range Interpretation Comments Troponin-I (test code no gt See_Comment [Auto mated message] The = Troponin-I) system which g enerated this result transmit kuldip reference range : <=0.40. The reference r nilam was not used to interpr et this result as abiodun l/abnormal. [facility] 05:19:00 Test Item Value Reference Range Interpretation Comments Troponin-I (test code no gt See_Comment [Auto mated message] The = Troponin-I) system which g enerated this result transmit kuldip reference range : <=0.40. The reference r nilam was not used to interpr et this result as abiodun l/abnormal. [facility] [employer]2018-08-03 05:19:00 Test Item Value Reference Range Interpretation Comments Troponin-I (test code no gt See_Comment [Auto mated message] The = Troponin-I) system which g enerated this result transmit kuldip reference range : <=0.40. The reference r nilam was not used to interpr et this result as abiodun l/abnormal. [facility]2018-08-03 01:51:00 Test Item Value Reference Range Interpretation Comments Bili Total (test code = Bili Total) 0.6 0.2-1.3 [facility]2018-08-03 01:51:00 Test Item Value Reference Range Interpretation Comments Bili Indirect (test 0.5 See_Comment [Automa kuldip message] The code = Bili Indirect) system which generated this result tra nsmitted reference range : <=1.0. The reference r nilam was not used to int erpret this result as normal/abnormal . [facility]2018-08-03 01:51:00 Test Item Value Reference Range Interpretation Comments Globulin (test code = Globulin) 4.7 2.7-4.2 [facility]2018-08-03 01:51:00 Test Item Value Reference Range Interpretation Comments A/G Ratio (test code = A/G Ratio) 0.8 1 0.7-1.6 [facility]2018-08-03 01:51:00 Test Item Value Reference Range Interpretation Comments eGFR (test code = eGFR) 124 [facility]2018-08-03 01:51:00 Test Item Value Reference Range Interpretation Comments Creatinine Lvl (test code = Creatinine 0.70 0.50-1.40 Lvl) [facility]2018-08-03 01:51:00 Test Item Value Reference Range Interpretation Comments Sodium Lvl (test code = Sodium Lvl) 134 135-145 [facility]2018-08-03 01:51:00 Test Item Value Reference Range Interpretation Comments Potassium Lvl (test code = Potassium 3.6 3.5-5.1 Lvl) [facility]2018-08-03 01:51:00 Test Item Value Reference Range Interpretation Comments CO2 (test code = CO2) 25 24-32 [facility]2018-08-03 01:51:00 Test Item Value Reference Range Interpretation Comments Chloride Lvl (test code = Chloride Lvl) 103 95-109 [facility]2018-08-03 01:51:00 Test Item Value Reference Range Interpretation Comments Calcium Lvl (test code = Calcium Lvl) 10.3 8.5-10.5 [facility]2018-08-03 01:51:00 Test Item Value Reference Range Interpretation Comments Glucose Lvl (test code = Glucose Lvl) 93 70-99 [facility]2018-08-03 01:51:00 Test Item Value Reference Range Interpretation Comments BUN (test code = BUN) 8 7-22 [facility]2018-08-03 01:51:00 Test Item Value Reference Range Interpretation Comments AGAP (test code = AGAP) 9.6 10.0-20.0 [facility] SystemQdtnnuzOXWIZEZDAL0808-57-65 01:51:00 Test Item Value Reference Range Interpretation Comments Basophils # (test code 0.0 See_Comment [Aut omated message] The = Basophils #) system which generated this result tra nsmitted reference range : <=0.2. The reference r nilam was not used to int erpret this result as normal/abnormal . [facility] SystemDkooscnJZJQUXPAAG1463-69-61 01:51:00 Test Item Value Reference Range Interpretation Comments Lymphocytes # (test code = Lymphocytes 2.4 1.0-5.5 #) [facility] SystemBhnxkdnOIPPWSLPZN3408-83-69 01:51:00 Test Item Value Reference Range Interpretation Comments Monocytes # (test code 0.6 See_Comment [Aut omated message] The = Monocytes #) system which generated this result tra nsmitted reference range : <=0.8. The reference r nilam was not used to int erpret this result as normal/abnormal . [facility] SystemGvltgicLLLWHZYTJT2298-80-47 01:51:00 Test Item Value Reference Range Interpretation Comments Eosinophils # (test code 0.1 See_Comment [A utomated message] The = Eosinophils #) system whic h generated this result tra nsmitted reference range : <=0.5. The reference r nilam was not used to int erpret this result as normal/abnormal . [facility] SystemMxhptkjNUODXLSOXM3577-40-65 01:51:00 Test Item Value Reference Range Interpretation Comments Eosinophils (test code = 2.1 See_Comment [A utomated message] The Eosinophils) system which ge nerated this result tra nsmitted reference range : <=4.0. The reference r nilam was not used to int erpret this result as normal/abnormal . [place] 826628-08-03 01:51:00 Test Item Value Reference Range Interpretation Comments Basophils (test code = 0.4 See_Comment [Aut omated message] The Basophils) system which ge nerated this result tra nsmitted reference range : <=1.0. The reference r nilam was not used to int erpret this result as normal/abnormal . [facility] SystemCmsvhiwUECLBRZSMF0085-43-77 01:51:00 Test Item Value Reference Range Interpretation Comments Neutrophils # (test code = Neutrophils 3.7 1.5-8.1 #) [facility] SystemBoooexuMXWAFEHAOK1319-06-40 01:51:00 Test Item Value Reference Range Interpretation Comments Lymphocytes (test code = Lymphocytes) 35.4 20.0-40.0 [facility] SystemTysjajbOSOTISNYBK0654-48-94 01:51:00 Test Item Value Reference Range Interpretation Comments Monocytes (test code = Monocytes) 8.2 2.0-12.0 [facility] SystemLebctemGZIABWDSZB4687-62-38 01:51:00 Test Item Value Reference Range Interpretation Comments Segs (test code = Segs) 53.9 45.0-75.0 [facility] SystemThqbnarCRAKWKTFSM7591-61-90 01:51:00 Test Item Value Reference Range Interpretation Comments MPV (test code = MPV) 7.8 7.4-10.4 [facility] SystemOvqzmahUBHRHIXVGF4491-32-37 01:51:00 Test Item Value Reference Range Interpretation Comments Platelet (test code = Platelet) 251 133-450 [facility] SystemTeuplulPAYZFOQIMI4580-17-22 01:51:00 Test Item Value Reference Range Interpretation Comments RDW (test code = RDW) 13.4 11.5-14.5 [facility] SystemPefzyqaVBBFJDOZZX0819-31-94 01:51:00 Test Item Value Reference Range Interpretation Comments MCHC (test code = MCHC) 34.1 32.0-36.0 [facility] SystemSwocjhxPKJKEWNJQR7026-36-68 01:51:00 Test Item Value Reference Range Interpretation Comments MCH (test code = MCH) 30.7 pg 27.0-31.0 [facility] SystemPrjurfwKHRTQOQBSG3644-68-13 01:51:00 Test Item Value Reference Range Interpretation Comments MCV (test code = MCV) 90.0 80.0-98.0 [facility] SystemTuamyrcJHWYFSULCB2915-99-32 01:51:00 Test Item Value Reference Range Interpretation Comments Hct (test code = Hct) 40.4 36.0-48.0 [facility] HospitalQikdxucDMBHUZOKSS1787-30-72 01:51:00 Test Item Value Reference Range Interpretation Comments Hgb (test code = Hgb) 13.8 12.0-16.0 [facility] HospitalSbarnvxMIUUQIYWQJ4585-20-78 01:51:00 Test Item Value Reference Range Interpretation Comments RBC (test code = RBC) 4.49 4.20-5.40 [facility] HospitalSpbungzVARQGYBVOU3697-22-46 01:51:00 Test Item Value Reference Range Interpretation Comments WBC (test code = WBC) 6.9 3.7-10.4 [facility] HospitalGCW WEOSUIR9522-13-30 01:51:00 Test Item Value Reference Range Interpretation Comments Total CK (test code = Total CK) 121 12-191 [facility] 01:51:00 Test Item Value Reference Range Interpretation Comments Troponin-I (test code no gt See_Comment [Auto mated message] The = Troponin-I) system which g enerated this result transmit kuldip reference range : <=0.40. The reference r nilam was not used to interpr et this result as abiodun l/abnormal. [facility] 01:51:00 Test Item Value Reference Range Interpretation Comments CK MB (test code = CK MB) no gt 0.5-3.6 [facility] 01:51:00 Test Item Value Reference Range Interpretation Comments CK MB Index (test no gt See_Comment [Automate d message] The code = CK MB Index) system w [facility] generated this result transmit kuldip reference range : <=2.5. The reference range was not used to interpr et this result as abiodun l/abnormal. [facility] [place] [id number] 01:51:00 Test Item Value Reference Range Interpretation Comments Lipase Lvl (test code = Lipase Lvl) 217 73-393 [facility] [id number] 01:51:00 Test Item Value Reference Range Interpretation Comments Total Protein (test code = Total 8.4 6.4-8.4 Protein) [facility] [id number] 01:51:00 Test Item Value Reference Range Interpretation Comments Albumin Lvl (test code = Albumin Lvl) 3.7 3.5-5.0 [place] 222468-08-03 01:51:00 Test Item Value Reference Range Interpretation Comments ALT (test code = ALT) 24 See_Comment [Auto mated message] The system which ge nerated this result transmit kuldip reference range : <=65. The reference range was not used to interpr et this result as abiodun l/abnormal. [facility]2018-08-03 01:51:00 Test Item Value Reference Range Interpretation Comments AST (test code = AST) 18 See_Comment [Auto mated message] The system which ge nerated this result transmit kuldip reference range : <=37. The reference range was not used to interpr et this result as abiodun l/abnormal. [place] 222468-08-03 01:51:00 Test Item Value Reference Range Interpretation Comments Bili Direct (test code 0.1 See_Comment [Aut omated message] The = Bili Direct) system which generated this result tra nsmitted reference range : <=0.3. The reference r nilam was not used to int erpret this result as abiodun l/abnormal. [facility]2018-08-03 01:51:00 Test Item Value Reference Range Interpretation Comments Alk Phos (test code = Alk Phos) 86 39-136 [facility]2018-08-03 01:51:00 Test Item Value Reference Range Interpretation Comments Bili Total (test code = Bili Total) 0.6 0.2-1.3 [place] 222468-08-03 01:51:00 Test Item Value Reference Range Interpretation Comments Bili Indirect (test 0.5 See_Comment [Automa kuldip message] The code = Bili Indirect) system which generated this result tra nsmitted reference range : <=1.0. The reference r nilam was not used to int erpret this result as normal/abnormal . [facility]2018-08-03 01:51:00 Test Item Value Reference Range Interpretation Comments Globulin (test code = Globulin) 4.7 2.7-4.2 [facility]2018-08-03 01:51:00 Test Item Value Reference Range Interpretation Comments A/G Ratio (test code = A/G Ratio) 0.8 1 0.7-1.6 [facility]2018-08-03 01:51:00 Test Item Value Reference Range Interpretation Comments eGFR (test code = eGFR) 124 [facility]2018-08-03 01:51:00 Test Item Value Reference Range Interpretation Comments Creatinine Lvl (test code = Creatinine 0.70 0.50-1.40 Lvl) [facility]2018-08-03 01:51:00 Test Item Value Reference Range Interpretation Comments Sodium Lvl (test code = Sodium Lvl) 134 135-145 [place] 222468-08-03 01:51:00 Test Item Value Reference Range Interpretation Comments Potassium Lvl (test code = Potassium 3.6 3.5-5.1 Lvl) [facility]2018-08-03 01:51:00 Test Item Value Reference Range Interpretation Comments CO2 (test code = CO2) 25 24-32 [facility]2018-08-03 01:51:00 Test Item Value Reference Range Interpretation Comments Chloride Lvl (test code = Chloride Lvl) 103 95-109 [facility]2018-08-03 01:51:00 Test Item Value Reference Range Interpretation Comments Calcium Lvl (test code = Calcium Lvl) 10.3 8.5-10.5 [facility]2018-08-03 01:51:00 Test Item Value Reference Range Interpretation Comments Glucose Lvl (test code = Glucose Lvl) 93 70-99 [facility]2018-08-03 01:51:00 Test Item Value Reference Range Interpretation Comments BUN (test code = BUN) 8 7-22 [facility]2018-08-03 01:51:00 Test Item Value Reference Range Interpretation Comments AGAP (test code = AGAP) 9.6 10.0-20.0 [facility] SystemNtfeuurMLVBWHDCUC3922-90-71 01:51:00 Test Item Value Reference Range Interpretation Comments Basophils # (test code 0.0 See_Comment [Aut omated message] The = Basophils #) system which generated this result tra nsmitted reference range : <=0.2. The reference r nilam was not used to int erpret this result as normal/abnormal . [facility] SystemSlhykriAAJLTLCNZS4453-50-14 01:51:00 Test Item Value Reference Range Interpretation Comments Lymphocytes # (test code = Lymphocytes 2.4 1.0-5.5 #) [facility] SystemMswsjtnSTOWICELOZ6025-22-83 01:51:00 Test Item Value Reference Range Interpretation Comments Monocytes # (test code 0.6 See_Comment [Aut omated message] The = Monocytes #) system which generated this result tra nsmitted reference range : <=0.8. The reference r nilam was not used to int erpret this result as normal/abnormal . [facility] SystemFnkdalwKEWAKXYVSS2010-17-81 01:51:00 Test Item Value Reference Range Interpretation Comments Eosinophils # (test code 0.1 See_Comment [A utomated message] The = Eosinophils #) system whic h generated this result tra nsmitted reference range : <=0.5. The reference r nilam was not used to int erpret this result as normal/abnormal . [facility] SystemPatuvasHKFZLSODDQ8897-94-70 01:51:00 Test Item Value Reference Range Interpretation Comments Eosinophils (test code = 2.1 See_Comment [A utomated message] The Eosinophils) system which ge nerated this result tra nsmitted reference range : <=4.0. The reference r nilam was not used to int erpret this result as normal/abnormal . [facility] SystemIfzzegcHYHAKIIYSQ9072-42-30 01:51:00 Test Item Value Reference Range Interpretation Comments Basophils (test code = 0.4 See_Comment [Aut omated message] The Basophils) system which ge nerated this result tra nsmitted reference range : <=1.0. The reference r nilam was not used to int erpret this result as normal/abnormal . [facility] SystemNyrduqlFYEUBNQFUT4693-93-28 01:51:00 Test Item Value Reference Range Interpretation Comments Neutrophils # (test code = Neutrophils 3.7 1.5-8.1 #) [facility] SystemGtcljqrYRYEXHZEGN2754-55-26 01:51:00 Test Item Value Reference Range Interpretation Comments Lymphocytes (test code = Lymphocytes) 35.4 20.0-40.0 [facility] SystemEagzqmwIAKPRCNTRG2552-33-97 01:51:00 Test Item Value Reference Range Interpretation Comments Monocytes (test code = Monocytes) 8.2 2.0-12.0 [facility] SystemMjrarysYQRLXBZZZO2222-01-74 01:51:00 Test Item Value Reference Range Interpretation Comments Segs (test code = Segs) 53.9 45.0-75.0 [facility]VowzbltEZBIPLBHCE9204-35-39 01:51:00 Test Item Value Reference Range Interpretation Comments MPV (test code = MPV) 7.8 7.4-10.4 [facility] SystemVjrhzuoLVOTREGYNM4412-58-63 01:51:00 Test Item Value Reference Range Interpretation Comments Platelet (test code = Platelet) 251 133-450 [facility]TgzemxyDQQGILYVKJ7872-95-67 01:51:00 Test Item Value Reference Range Interpretation Comments RDW (test code = RDW) 13.4 11.5-14.5 [facility] HospitalAtnyqhaRQDPNBPBDP2193-61-33 01:51:00 Test Item Value Reference Range Interpretation Comments MCHC (test code = MCHC) 34.1 32.0-36.0 [facility] SystemSygnwtxYMLRXWLNXE4801-11-61 01:51:00 Test Item Value Reference Range Interpretation Comments MCH (test code = MCH) 30.7 pg 27.0-31.0 [facility] HospitalErrvllnIITSHIYPKN0449-09-79 01:51:00 Test Item Value Reference Range Interpretation Comments MCV (test code = MCV) 90.0 80.0-98.0 [facility] HospitalLpqrqvqZROHPKFFBM7118-55-08 01:51:00 Test Item Value Reference Range Interpretation Comments Hct (test code = Hct) 40.4 36.0-48.0 [facility] SystemNqxbjjeLVIJTYHKFM9461-15-91 01:51:00 Test Item Value Reference Range Interpretation Comments Hgb (test code = Hgb) 13.8 12.0-16.0 [facility] SystemVlwabvbNXZNUVLRNJ7535-21-13 01:51:00 Test Item Value Reference Range Interpretation Comments RBC (test code = RBC) 4.49 4.20-5.40 [facility] HospitalBoykvqqGTJVEIJJIC7045-46-47 01:51:00 Test Item Value Reference Range Interpretation Comments WBC (test code = WBC) 6.9 3.7-10.4 [facility]CARD[facility]AC TYTNURW8008-57-62 01:51:00 Test Item Value Reference Range Interpretation Comments Total CK (test code = Total CK) 121 12-191 [facility] ETJRIXM8050-65-99 01:51:00 Test Item Value Reference Range Interpretation Comments Troponin-I (test code no gt See_Comment [Auto mated message] The = Troponin-I) system which g enerated this result transmit kuldip reference range : <=0.40. The reference r nilam was not used to interpr et this result as abiodun l/abnormal. [facility] HospitalGCW FGBKBLR6120-32-62 01:51:00 Test Item Value Reference Range Interpretation Comments CK MB (test code = CK MB) no gt 0.5-3.6 [facility] CenterProjectSpeaker SYEWJUY9631-94-53 01:51:00 Test Item Value Reference Range Interpretation Comments CK MB Index (test no gt See_Comment [Automate d message] The code = CK MB Index) system w [facility] generated this result transmit kuldip reference range : <=2.5. The reference range was not used to interpr et this result as abiodun l/abnormal. [facility] [place] LCFUU1604-10-75 01:51:00 Test Item Value Reference Range Interpretation Comments Lipase Lvl (test code = Lipase Lvl) 217 73-393 [facility] [id number] 01:51:00 Test Item Value Reference Range Interpretation Comments Total Protein (test code = Total 8.4 6.4-8.4 Protein) [facility] [id number] 01:51:00 Test Item Value Reference Range Interpretation Comments Albumin Lvl (test code = Albumin Lvl) 3.7 3.5-5.0 [facility] [place] [id number] 01:51:00 Test Item Value Reference Range Interpretation Comments ALT (test code = ALT) 24 See_Comment [Auto mated message] The system which ge nerated this result transmit kuldip reference range : <=65. The reference range was not used to interpr et this result as abiodun l/abnormal. [facility] [employer]2018-08-03 01:51:00 Test Item Value Reference Range Interpretation Comments AST (test code = AST) 18 See_Comment [Auto mated message] The system which ge nerated this result transmit kuldip reference range : <=37. The reference range was not used to interpr et this result as abiodun l/abnormal. [facility] [place] [id number] 01:51:00 Test Item Value Reference Range Interpretation Comments Bili Direct (test code 0.1 See_Comment [Aut omated message] The = Bili Direct) system which generated this result tra nsmitted reference range : <=0.3. The reference r nilam was not used to int erpret this result as abiodun l/abnormal. [facility]2018-08-03 01:51:00 Test Item Value Reference Range Interpretation Comments Alk Phos (test code = Alk Phos) 86 39-136 [facility]2018-08-03 01:51:00 Test Item Value Reference Range Interpretation Comments Bili Total (test code = Bili Total) 0.6 0.2-1.3 [place] 222468-08-03 01:51:00 Test Item Value Reference Range Interpretation Comments Bili Indirect (test 0.5 See_Comment [Automa kuldip message] The code = Bili Indirect) system which generated this result tra nsmitted reference range : <=1.0. The reference r nilam was not used to int erpret this result as normal/abnormal . [facility]2018-08-03 01:51:00 Test Item Value Reference Range Interpretation Comments Globulin (test code = Globulin) 4.7 2.7-4.2 [place] 222468-08-03 01:51:00 Test Item Value Reference Range Interpretation Comments A/G Ratio (test code = A/G Ratio) 0.8 1 0.7-1.6 [facility]2018-08-03 01:51:00 Test Item Value Reference Range Interpretation Comments eGFR (test code = eGFR) 124 [place] 222468-08-03 01:51:00 Test Item Value Reference Range Interpretation Comments Creatinine Lvl (test code = Creatinine 0.70 0.50-1.40 Lvl) [facility]2018-08-03 01:51:00 Test Item Value Reference Range Interpretation Comments Sodium Lvl (test code = Sodium Lvl) 134 135-145 [facility]2018-08-03 01:51:00 Test Item Value Reference Range Interpretation Comments Potassium Lvl (test code = Potassium 3.6 3.5-5.1 Lvl) [facility]2018-08-03 01:51:00 Test Item Value Reference Range Interpretation Comments CO2 (test code = CO2) 25 24-32 [place] 222468-08-03 01:51:00 Test Item Value Reference Range Interpretation Comments Chloride Lvl (test code = Chloride Lvl) 103 95-109 [facility]2018-08-03 01:51:00 Test Item Value Reference Range Interpretation Comments Calcium Lvl (test code = Calcium Lvl) 10.3 8.5-10.5 [facility]2018-08-03 01:51:00 Test Item Value Reference Range Interpretation Comments Glucose Lvl (test code = Glucose Lvl) 93 70-99 [facility]2018-08-03 01:51:00 Test Item Value Reference Range Interpretation Comments BUN (test code = BUN) 8 7-22 [facility]2018-08-03 01:51:00 Test Item Value Reference Range Interpretation Comments AGAP (test code = AGAP) 9.6 10.0-20.0 [facility] SystemDzfyxfpNMRLOOPABF2098-08-48 01:51:00 Test Item Value Reference Range Interpretation Comments Basophils # (test code 0.0 See_Comment [Aut omated message] The = Basophils #) system which generated this result tra nsmitted reference range : <=0.2. The reference r nilam was not used to int erpret this result as normal/abnormal . [facility] SystemNtfmiihUZCJBMILMG6395-15-98 01:51:00 Test Item Value Reference Range Interpretation Comments Lymphocytes # (test code = Lymphocytes 2.4 1.0-5.5 #) [facility] SystemSlwuybeKPISHMXQTB2026-56-74 01:51:00 Test Item Value Reference Range Interpretation Comments Monocytes # (test code 0.6 See_Comment [Aut omated message] The = Monocytes #) system which generated this result tra nsmitted reference range : <=0.8. The reference r nilam was not used to int erpret this result as normal/abnormal . [facility] SystemYnyqjxnBDAUFBDAOO1220-80-32 01:51:00 Test Item Value Reference Range Interpretation Comments Eosinophils # (test code 0.1 See_Comment [A utomated message] The = Eosinophils #) system whic h generated this result tra nsmitted reference range : <=0.5. The reference r nilam was not used to int erpret this result as normal/abnormal . [facility] SystemBkrleznWWDLPSXWHJ8010-88-58 01:51:00 Test Item Value Reference Range Interpretation Comments Eosinophils (test code = 2.1 See_Comment [A utomated message] The Eosinophils) system which ge nerated this result tra nsmitted reference range : <=4.0. The reference r nilam was not used to int erpret this result as normal/abnormal . [facility] SystemUmkvyseALOAEWWOKV1044-92-38 01:51:00 Test Item Value Reference Range Interpretation Comments Basophils (test code = 0.4 See_Comment [Aut omated message] The Basophils) system which ge nerated this result tra nsmitted reference range : <=1.0. The reference r nilam was not used to int erpret this result as normal/abnormal . [facility] SystemRbsvmryHAEXZPRKCY0065-92-28 01:51:00 Test Item Value Reference Range Interpretation Comments Neutrophils # (test code = Neutrophils 3.7 1.5-8.1 #) [facility] SystemVbrkjzcOCYSYOJFTE3336-44-75 01:51:00 Test Item Value Reference Range Interpretation Comments Lymphocytes (test code = Lymphocytes) 35.4 20.0-40.0 [facility] SystemXudxfuoKSLDCQSAMT3436-56-60 01:51:00 Test Item Value Reference Range Interpretation Comments Monocytes (test code = Monocytes) 8.2 2.0-12.0 [facility] SystemUijkcwnQUPFBMDKOH1389-74-02 01:51:00 Test Item Value Reference Range Interpretation Comments Segs (test code = Segs) 53.9 45.0-75.0 [facility] SystemMzmoebyKMMJWQNUHG6811-37-62 01:51:00 Test Item Value Reference Range Interpretation Comments MPV (test code = MPV) 7.8 7.4-10.4 [facility] SystemLiieqhePYETLBQHPH6001-21-80 01:51:00 Test Item Value Reference Range Interpretation Comments Platelet (test code = Platelet) 251 133-450 [facility] SystemAghjkjrAVWSSRCDLY3753-91-75 01:51:00 Test Item Value Reference Range Interpretation Comments RDW (test code = RDW) 13.4 11.5-14.5 [facility] SystemUemajtuQECCMXVAMY2434-83-56 01:51:00 Test Item Value Reference Range Interpretation Comments MCHC (test code = MCHC) 34.1 32.0-36.0 [facility] SystemClrkzzjBHVIWZSAFY3568-64-44 01:51:00 Test Item Value Reference Range Interpretation Comments MCH (test code = MCH) 30.7 pg 27.0-31.0 [facility] SystemOgocyrnBOACCKSARD1155-59-85 01:51:00 Test Item Value Reference Range Interpretation Comments MCV (test code = MCV) 90.0 80.0-98.0 [facility] HospitalTuruaoyINTEIHDPTJ6026-35-42 01:51:00 Test Item Value Reference Range Interpretation Comments Hct (test code = Hct) 40.4 36.0-48.0 [facility]YddyxaoNBHHMTSJLC0147-37-98 01:51:00 Test Item Value Reference Range Interpretation Comments Hgb (test code = Hgb) 13.8 12.0-16.0 [facility] CenterTlnwkofNTRRRVIHXG4197-74-49 01:51:00 Test Item Value Reference Range Interpretation Comments RBC (test code = RBC) 4.49 4.20-5.40 [facility] HospitalPqdyqtdDFQGAZWPHV8209-71-17 01:51:00 Test Item Value Reference Range Interpretation Comments WBC (test code = WBC) 6.9 3.7-10.4 [facility] HospitalQuipper[facility] 01:51:00 Test Item Value Reference Range Interpretation Comments Total CK (test code = Total CK) 121 12-191 [facility] HospitalSenseware XNATQIT4723-27-66 01:51:00 Test Item Value Reference Range Interpretation Comments Troponin-I (test code no gt See_Comment [Auto mated message] The = Troponin-I) system which g enerated this result transmit kuldip reference range : <=0.40. The reference r nilam was not used to interpr et this result as abiodun l/abnormal. [facility] 01:51:00 Test Item Value Reference Range Interpretation Comments CK MB (test code = CK MB) no gt 0.5-3.6 [facility] CenterGoCardlessLQCIOWV0695-73-89 01:51:00 Test Item Value Reference Range Interpretation Comments CK MB Index (test no gt See_Comment [Automate d message] The code = CK MB Index) system w [facility] generated this result transmit kuldip reference range : <=2.5. The reference range was not used to interpr et this result as abiodun l/abnormal. [facility] [employer]2018-08-03 01:51:00 Test Item Value Reference Range Interpretation Comments Lipase Lvl (test code = Lipase Lvl) 217 73-393 [facility] [place] [id number] 01:51:00 Test Item Value Reference Range Interpretation Comments Total Protein (test code = Total 8.4 6.4-8.4 Protein) [facility]2018-08-03 01:51:00 Test Item Value Reference Range Interpretation Comments Albumin Lvl (test code = Albumin Lvl) 3.7 3.5-5.0 [facility]2018-08-03 01:51:00 Test Item Value Reference Range Interpretation Comments ALT (test code = ALT) 24 See_Comment [Auto mated message] The system which ge nerated this result transmit kuldip reference range : <=65. The reference range was not used to interpr et this result as abiodun l/abnormal. [facility]2018-08-03 01:51:00 Test Item Value Reference Range Interpretation Comments AST (test code = AST) 18 See_Comment [Auto mated message] The system which ge nerated this result transmit kuldip reference range : <=37. The reference range was not used to interpr et this result as abiodun l/abnormal. [place]2468-08-03 01:51:00 Test Item Value Reference Range Interpretation Comments Bili Direct (test code 0.1 See_Comment [Aut omated message] The = Bili Direct) system which generated this result tra nsmitted reference range : <=0.3. The reference r nilam was not used to int erpret this result as abiodun l/abnormal. [facility]2018-08-03 01:51:00 Test Item Value Reference Range Interpretation Comments Alk Phos (test code = Alk Phos) 86 39-136 [facility]2018-08-03 01:51:00 Test Item Value Reference Range Interpretation Comments Bili Total (test code = Bili Total) 0.6 0.2-1.3 [place] 222468-08-03 01:51:00 Test Item Value Reference Range Interpretation Comments Bili Indirect (test 0.5 See_Comment [Automa kuldip message] The code = Bili Indirect) system which generated this result tra nsmitted reference range : <=1.0. The reference r nilam was not used to int erpret this result as normal/abnormal . [facility]2018-08-03 01:51:00 Test Item Value Reference Range Interpretation Comments Globulin (test code = Globulin) 4.7 2.7-4.2 [place] 222468-08-03 01:51:00 Test Item Value Reference Range Interpretation Comments A/G Ratio (test code = A/G Ratio) 0.8 1 0.7-1.6 [facility]2018-08-03 01:51:00 Test Item Value Reference Range Interpretation Comments eGFR (test code = eGFR) 124 [facility]2018-08-03 01:51:00 Test Item Value Reference Range Interpretation Comments Creatinine Lvl (test code = Creatinine 0.70 0.50-1.40 Lvl) [facility]2018-08-03 01:51:00 Test Item Value Reference Range Interpretation Comments Sodium Lvl (test code = Sodium Lvl) 134 135-145 [facility]2018-08-03 01:51:00 Test Item Value Reference Range Interpretation Comments Potassium Lvl (test code = Potassium 3.6 3.5-5.1 Lvl) [facility]2018-08-03 01:51:00 Test Item Value Reference Range Interpretation Comments CO2 (test code = CO2) 25 24-32 [facility]2018-08-03 01:51:00 Test Item Value Reference Range Interpretation Comments Chloride Lvl (test code = Chloride Lvl) 103 95-109 [facility]2018-08-03 01:51:00 Test Item Value Reference Range Interpretation Comments Calcium Lvl (test code = Calcium Lvl) 10.3 8.5-10.5 [facility]2018-08-03 01:51:00 Test Item Value Reference Range Interpretation Comments Glucose Lvl (test code = Glucose Lvl) 93 70-99 [facility]2018-08-03 01:51:00 Test Item Value Reference Range Interpretation Comments BUN (test code = BUN) 8 7-22 [facility]2018-08-03 01:51:00 Test Item Value Reference Range Interpretation Comments AGAP (test code = AGAP) 9.6 10.0-20.0 [facility] SystemWzjtusxMYKIUUKCDB9537-64-36 01:51:00 Test Item Value Reference Range Interpretation Comments Basophils # (test code 0.0 See_Comment [Aut omated message] The = Basophils #) system which generated this result tra nsmitted reference range : <=0.2. The reference r nilam was not used to int erpret this result as normal/abnormal . [facility] SystemBxhcrqtMZOVBOQYHA1077-33-56 01:51:00 Test Item Value Reference Range Interpretation Comments Lymphocytes # (test code = Lymphocytes 2.4 1.0-5.5 #) [facility] SystemDhhmquuLTXVGSXOPY9196-13-31 01:51:00 Test Item Value Reference Range Interpretation Comments Monocytes # (test code 0.6 See_Comment [Aut omated message] The = Monocytes #) system which generated this result tra nsmitted reference range : <=0.8. The reference r nilam was not used to int erpret this result as normal/abnormal . [facility] SystemCfnlxtjLCVODVDYEZ9693-73-71 01:51:00 Test Item Value Reference Range Interpretation Comments Eosinophils # (test code 0.1 See_Comment [A utomated message] The = Eosinophils #) system whic h generated this result tra nsmitted reference range : <=0.5. The reference r nilam was not used to int erpret this result as normal/abnormal . [facility] SystemVixzyfmHJQMRDCAFC5451-16-22 01:51:00 Test Item Value Reference Range Interpretation Comments Eosinophils (test code = 2.1 See_Comment [A utomated message] The Eosinophils) system which ge nerated this result tra nsmitted reference range : <=4.0. The reference r nilam was not used to int erpret this result as normal/abnormal . [facility] SystemEczpbavXGIKLTTRNJ5362-98-23 01:51:00 Test Item Value Reference Range Interpretation Comments Basophils (test code = 0.4 See_Comment [Aut omated message] The Basophils) system which ge nerated this result tra nsmitted reference range : <=1.0. The reference r nilam was not used to int erpret this result as normal/abnormal . [facility] SystemMsyjddhZYVUWQQJNY0928-53-78 01:51:00 Test Item Value Reference Range Interpretation Comments Neutrophils # (test code = Neutrophils 3.7 1.5-8.1 #) [facility] SystemFdynkeiPBKFVLORVM1901-98-16 01:51:00 Test Item Value Reference Range Interpretation Comments Lymphocytes (test code = Lymphocytes) 35.4 20.0-40.0 [facility] SystemBxqfaqtTEFNGUVRWB1660-19-32 01:51:00 Test Item Value Reference Range Interpretation Comments Monocytes (test code = Monocytes) 8.2 2.0-12.0 [facility]NcohrhhJKATVHLLPC6237-56-26 01:51:00 Test Item Value Reference Range Interpretation Comments Segs (test code = Segs) 53.9 45.0-75.0 [facility]DmulnyiEYCXTRGNEX9106-73-76 01:51:00 Test Item Value Reference Range Interpretation Comments MPV (test code = MPV) 7.8 7.4-10.4 [facility]NpkopncRBGULECEUG9660-65-16 01:51:00 Test Item Value Reference Range Interpretation Comments Platelet (test code = Platelet) 251 133-450 [facility] HospitalRjbccbxJWQKEERXVE8246-65-54 01:51:00 Test Item Value Reference Range Interpretation Comments RDW (test code = RDW) 13.4 11.5-14.5 [facility] HospitalCpjmfcnXBQMHCXTAL7917-86-23 01:51:00 Test Item Value Reference Range Interpretation Comments MCHC (test code = MCHC) 34.1 32.0-36.0 [facility] HospitalTyjxblhGDPEDBPTLX2693-09-47 01:51:00 Test Item Value Reference Range Interpretation Comments MCH (test code = MCH) 30.7 pg 27.0-31.0 [facility] HospitalIivnzwtCJLWZNUWHX2654-83-62 01:51:00 Test Item Value Reference Range Interpretation Comments MCV (test code = MCV) 90.0 80.0-98.0 [facility] HospitalXmrusalAYVHDVJPAN8503-60-18 01:51:00 Test Item Value Reference Range Interpretation Comments Hct (test code = Hct) 40.4 36.0-48.0 [facility] HospitalScyosusETDQOMWJEG7199-75-05 01:51:00 Test Item Value Reference Range Interpretation Comments Hgb (test code = Hgb) 13.8 12.0-16.0 [facility] HospitalHhpfmunJOHOALRSGM6741-76-67 01:51:00 Test Item Value Reference Range Interpretation Comments RBC (test code = RBC) 4.49 4.20-5.40 [facility] HospitalKbcstzmPRNXKNPZPB4444-22-08 01:51:00 Test Item Value Reference Range Interpretation Comments WBC (test code = WBC) 6.9 3.7-10.4 [facility] [id number] 01:51:00 Test Item Value Reference Range Interpretation Comments Total CK (test code = Total CK) 121 12-191 [facility] CenterCARDI TOOCWKD0970-23-05 01:51:00 Test Item Value Reference Range Interpretation Comments Troponin-I (test code no gt See_Comment [Auto mated message] The = Troponin-I) system which g enerated this result transmit kuldip reference range : <=0.40. The reference r nilam was not used to interpr et this result as abiodun l/abnormal. [facility] [employer] [id number] 01:51:00 Test Item Value Reference Range Interpretation Comments CK MB (test code = CK MB) no gt 0.5-3.6 [facility] HospitalGCW NZHCSXB2794-50-92 01:51:00 Test Item Value Reference Range Interpretation Comments CK MB Index (test no gt See_Comment [Automate d message] The code = CK MB Index) system w [facility] generated this result transmit kuldip reference range : <=2.5. The reference range was not used to interpr et this result as abiodun l/abnormal. [facility] [employer]2018-08-03 01:51:00 Test Item Value Reference Range Interpretation Comments Lipase Lvl (test code = Lipase Lvl) 217 73-393 [facility] [place] [id number] 01:51:00 Test Item Value Reference Range Interpretation Comments Total Protein (test code = Total 8.4 6.4-8.4 Protein) [facility] [place] [id number] 01:51:00 Test Item Value Reference Range Interpretation Comments Albumin Lvl (test code = Albumin Lvl) 3.7 3.5-5.0 [facility] [place] [id number] 01:51:00 Test Item Value Reference Range Interpretation Comments ALT (test code = ALT) 24 See_Comment [Auto mated message] The system which ge nerated this result transmit kuldip reference range : <=65. The reference range was not used to interpr et this result as abiodun l/abnormal. [facility] [employer]2018-08-03 01:51:00 Test Item Value Reference Range Interpretation Comments AST (test code = AST) 18 See_Comment [Auto mated message] The system which ge nerated this result transmit kuldip reference range : <=37. The reference range was not used to interpr et this result as abiodun l/abnormal. [facility] [employer]2018-08-03 01:51:00 Test Item Value Reference Range Interpretation Comments Bili Direct (test code 0.1 See_Comment [Aut omated message] The = Bili Direct) system which generated this result tra nsmitted reference range : <=0.3. The reference r nilam was not used to int erpret this result as abiodun l/abnormal. [facility] [id number] 01:51:00 Test Item Value Reference Range Interpretation Comments Alk Phos (test code = Alk Phos) 86 39-136 [facility] W/AUTO [id number] 00:00:00 Test Item Value Reference Range Interpretation Comments WBC (test code = 1001) 8.0 K/UL RBC (test code = 1002) 4.50 M/UL HEMOGLOBIN (test code = 1003) 13.5 G/DL HEMATOCRIT (test code = 1004) 39.1 % MCV (test code = 1005) 86.9 fL MCH (test code = 1006) 30.0 PG MCHC (test code = 1007) 34.5 G/DL RDW (test code = 1038) 13.2 % NEUTROPHILS (test code = 1008) 61.7 % LYMPHOCYTES (test code = 1010) 28.3 % MONOCYTES (test code = 1011) 7.7 % EOSINOPHILS (test code = 1012) 1.8 % BASOPHILS (test code = 1013) 0.5 % PLATELET COUNT (test code = 1015) 247 K/UL CBC W/AUTO [id number] 00:00:00 Test Item Value Reference Range Interpretation Comments WBC (test code = 1001) 8.0 K/UL RBC (test code = 1002) 4.50 M/UL HEMOGLOBIN (test code = 1003) 13.5 G/DL HEMATOCRIT (test code = 1004) 39.1 % MCV (test code = 1005) 86.9 fL MCH (test code = 1006) 30.0 PG MCHC (test code = 1007) 34.5 G/DL RDW (test code = 1038) 13.2 % NEUTROPHILS (test code = 1008) 61.7 % LYMPHOCYTES (test code = 1010) 28.3 % MONOCYTES (test code = 1011) 7.7 % EOSINOPHILS (test code = 1012) 1.8 % BASOPHILS (test code = 1013) 0.5 % PLATELET COUNT (test code = 1015) 247 K/UL HEMOGLOBIN [id number] 00:00:00 Test Item Value Reference Range Interpretation Comments HEMOGLOBIN A1c (test code = 02638) 5.3 % HEMOGLOBIN [id number] 00:00:00 Test Item Value Reference Range Interpretation Comments HEMOGLOBIN A1c (test code = 62153) 5.3 % LIPID [id number] 00:00:00 Test Item Value Reference Range Interpretation Comments CHOLESTEROL (test code = 2210) 226 MG/DL TRIGLYCERIDES (test code = 2232) 169 MG/DL HDL CHOLESTEROL (test code = 2220) 60 MG/DL CALC LDL CHOL (test code = 2237) 132 MG/DL RISK RATIO LDL/HDL (test code = 2.20 RATIO 2238) BASIC METABOLIC [id number] 00:00:00 Test Item Value Reference Range Interpretation Comments GLUCOSE (test code = 2217) 89 MG/DL BUN (test code = 2208) 7 MG/DL CREATININE (test code = 2214) 0.70 MG/DL eGFR AMER. (test code 124 ML/MIN/1.73 = 48067) eGFR NON- AMER. (test 107 ML/MIN/1.73 code = 14169) SODIUM (test code = 2231) 140 MEQ/L POTASSIUM (test code = 2228) 4.3 MEQ/L CHLORIDE (test code = 2215) 99 MEQ/L CARBON DIOXIDE (test code = 26 MEQ/L 2206) CALCIUM (test code = 2209) 11.1 MG/DL CBC W/AUTO [id number] 00:00:00 Test Item Value Reference Range Interpretation Comments WBC (test code = 1001) 8.0 K/UL RBC (test code = 1002) 4.50 M/UL HEMOGLOBIN (test code = 1003) 13.5 G/DL HEMATOCRIT (test code = 1004) 39.1 % MCV (test code = 1005) 86.9 fL MCH (test code = 1006) 30.0 PG MCHC (test code = 1007) 34.5 G/DL RDW (test code = 1038) 13.2 % NEUTROPHILS (test code = 1008) 61.7 % LYMPHOCYTES (test code = 1010) 28.3 % MONOCYTES (test code = 1011) 7.7 % EOSINOPHILS (test code = 1012) 1.8 % BASOPHILS (test code = 1013) 0.5 % PLATELET COUNT (test code = 1015) 247 K/UL [id number] 00:00:00 Test Item Value Reference Range Interpretation Comments TSH, THIRD GENERATION (test code 1.020 UIU/ML = 2821) [id number] 00:00:00 Test Item Value Reference Range Interpretation Comments TSH, THIRD GENERATION (test code 1.020 UIU/ML = 2821) CBC W/AUTO [id number] 00:00:00 Test Item Value Reference Range Interpretation Comments WBC (test code = 1001) 8.0 K/UL RBC (test code = 1002) 4.50 M/UL HEMOGLOBIN (test code = 1003) 13.5 G/DL HEMATOCRIT (test code = 1004) 39.1 % MCV (test code = 1005) 86.9 fL MCH (test code = 1006) 30.0 PG MCHC (test code = 1007) 34.5 G/DL RDW (test code = 1038) 13.2 % NEUTROPHILS (test code = 1008) 61.7 % LYMPHOCYTES (test code = 1010) 28.3 % MONOCYTES (test code = 1011) 7.7 % EOSINOPHILS (test code = 1012) 1.8 % BASOPHILS (test code = 1013) 0.5 % PLATELET COUNT (test code = 1015) 247 K/UL CBC W/AUTO [id number] 00:00:00 Test Item Value Reference Range Interpretation Comments WBC (test code = 1001) 8.0 K/UL RBC (test code = 1002) 4.50 M/UL HEMOGLOBIN (test code = 1003) 13.5 G/DL HEMATOCRIT (test code = 1004) 39.1 % MCV (test code = 1005) 86.9 fL MCH (test code = 1006) 30.0 PG MCHC (test code = 1007) 34.5 G/DL RDW (test code = 1038) 13.2 % NEUTROPHILS (test code = 1008) 61.7 % LYMPHOCYTES (test code = 1010) 28.3 % MONOCYTES (test code = 1011) 7.7 % EOSINOPHILS (test code = 1012) 1.8 % BASOPHILS (test code = 1013) 0.5 % PLATELET COUNT (test code = 1015) 247 K/UL CBC W/AUTO [id number] 00:00:00 Test Item Value Reference Range Interpretation Comments WBC (test code = 1001) 8.0 K/UL RBC (test code = 1002) 4.50 M/UL HEMOGLOBIN (test code = 1003) 13.5 G/DL HEMATOCRIT (test code = 1004) 39.1 % MCV (test code = 1005) 86.9 fL MCH (test code = 1006) 30.0 PG MCHC (test code = 1007) 34.5 G/DL RDW (test code = 1038) 13.2 % NEUTROPHILS (test code = 1008) 61.7 % LYMPHOCYTES (test code = 1010) 28.3 % MONOCYTES (test code = 1011) 7.7 % EOSINOPHILS (test code = 1012) 1.8 % BASOPHILS (test code = 1013) 0.5 % PLATELET COUNT (test code = 1015) 247 K/UL HEMOGLOBIN [id number] 00:00:00 Test Item Value Reference Range Interpretation Comments HEMOGLOBIN A1c (test code = 34691) 5.3 % HEMOGLOBIN [id number] 00:00:00 Test Item Value Reference Range Interpretation Comments HEMOGLOBIN A1c (test code = 78826) 5.3 % LIPID [id number] 00:00:00 Test Item Value Reference Range Interpretation Comments CHOLESTEROL (test code = 2210) 226 MG/DL TRIGLYCERIDES (test code = 2232) 169 MG/DL HDL CHOLESTEROL (test code = 2220) 60 MG/DL CALC LDL CHOL (test code = 2237) 132 MG/DL RISK RATIO LDL/HDL (test code = 2.20 RATIO 2238) BASIC METABOLIC [id number] 00:00:00 Test Item Value Reference Range Interpretation Comments GLUCOSE (test code = 2217) 89 MG/DL BUN (test code = 2208) 7 MG/DL CREATININE (test code = 2214) 0.70 MG/DL eGFR AMER. (test code 124 ML/MIN/1.73 = 68179) eGFR NON- AMER. (test 107 ML/MIN/1.73 code = 26651) SODIUM (test code = 2231) 140 MEQ/L POTASSIUM (test code = 2228) 4.3 MEQ/L CHLORIDE (test code = 2215) 99 MEQ/L CARBON DIOXIDE (test code = 26 MEQ/L 2206) CALCIUM (test code = 2209) 11.1 MG/DL [id number] 00:00:00 Test Item Value Reference Range Interpretation Comments TSH, THIRD GENERATION (test code 1.020 UIU/ML = 2821) [id number] 00:00:00 Test Item Value Reference Range Interpretation Comments TSH, THIRD GENERATION (test code 1.020 UIU/ML = 2821) HEMOGLOBIN [id number] 00:00:00 Test Item Value Reference Range Interpretation Comments HEMOGLOBIN A1c (test code = 46994) 5.3 % CBC W/AUTO [id number] 00:00:00 Test Item Value Reference Range Interpretation Comments WBC (test code = 1001) 8.0 K/UL RBC (test code = 1002) 4.50 M/UL HEMOGLOBIN (test code = 1003) 13.5 G/DL HEMATOCRIT (test code = 1004) 39.1 % MCV (test code = 1005) 86.9 fL MCH (test code = 1006) 30.0 PG MCHC (test code = 1007) 34.5 G/DL RDW (test code = 1038) 13.2 % NEUTROPHILS (test code = 1008) 61.7 % LYMPHOCYTES (test code = 1010) 28.3 % MONOCYTES (test code = 1011) 7.7 % EOSINOPHILS (test code = 1012) 1.8 % BASOPHILS (test code = 1013) 0.5 % PLATELET COUNT (test code = 1015) 247 K/UL CBC W/AUTO [id number] 00:00:00 Test Item Value Reference Range Interpretation Comments WBC (test code = 1001) 8.0 K/UL RBC (test code = 1002) 4.50 M/UL HEMOGLOBIN (test code = 1003) 13.5 G/DL HEMATOCRIT (test code = 1004) 39.1 % MCV (test code = 1005) 86.9 fL MCH (test code = 1006) 30.0 PG MCHC (test code = 1007) 34.5 G/DL RDW (test code = 1038) 13.2 % NEUTROPHILS (test code = 1008) 61.7 % LYMPHOCYTES (test code = 1010) 28.3 % MONOCYTES (test code = 1011) 7.7 % EOSINOPHILS (test code = 1012) 1.8 % BASOPHILS (test code = 1013) 0.5 % PLATELET COUNT (test code = 1015) 247 K/UL HEMOGLOBIN [id number] 00:00:00 Test Item Value Reference Range Interpretation Comments HEMOGLOBIN A1c (test code = 63633) 5.3 % CBC W/AUTO [id number] 00:00:00 Test Item Value Reference Range Interpretation Comments WBC (test code = 1001) 8.0 K/UL RBC (test code = 1002) 4.50 M/UL HEMOGLOBIN (test code = 1003) 13.5 G/DL HEMATOCRIT (test code = 1004) 39.1 % MCV (test code = 1005) 86.9 fL MCH (test code = 1006) 30.0 PG MCHC (test code = 1007) 34.5 G/DL RDW (test code = 1038) 13.2 % NEUTROPHILS (test code = 1008) 61.7 % LYMPHOCYTES (test code = 1010) 28.3 % MONOCYTES (test code = 1011) 7.7 % EOSINOPHILS (test code = 1012) 1.8 % BASOPHILS (test code = 1013) 0.5 % PLATELET COUNT (test code = 1015) 247 K/UL HEMOGLOBIN [id number] 00:00:00 Test Item Value Reference Range Interpretation Comments HEMOGLOBIN A1c (test code = 89502) 5.3 % HEMOGLOBIN [id number] 00:00:00 Test Item Value Reference Range Interpretation Comments HEMOGLOBIN A1c (test code = 34013) 5.3 % HEMOGLOBIN [id number] 00:00:00 Test Item Value Reference Range Interpretation Comments HEMOGLOBIN A1c (test code = 19028) 5.3 % LIPID [id number] 00:00:00 Test Item Value Reference Range Interpretation Comments CHOLESTEROL (test code = 2210) 226 MG/DL TRIGLYCERIDES (test code = 2232) 169 MG/DL HDL CHOLESTEROL (test code = 2220) 60 MG/DL CALC LDL CHOL (test code = 2237) 132 MG/DL RISK RATIO LDL/HDL (test code = 2.20 RATIO 2238) LIPID [id number] 00:00:00 Test Item Value Reference Range Interpretation Comments CHOLESTEROL (test code = 2210) 226 MG/DL TRIGLYCERIDES (test code = 2232) 169 MG/DL HDL CHOLESTEROL (test code = 2220) 60 MG/DL CALC LDL CHOL (test code = 2237) 132 MG/DL RISK RATIO LDL/HDL (test code = 2.20 RATIO 2238) LIPID [id number] 00:00:00 Test Item Value Reference Range Interpretation Comments CHOLESTEROL (test code = 2210) 226 MG/DL TRIGLYCERIDES (test code = 2232) 169 MG/DL HDL CHOLESTEROL (test code = 2220) 60 MG/DL CALC LDL CHOL (test code = 2237) 132 MG/DL RISK RATIO LDL/HDL (test code = 2.20 RATIO 2238) BASIC METABOLIC [id number] 00:00:00 Test Item Value Reference Range Interpretation Comments GLUCOSE (test code = 2217) 89 MG/DL BUN (test code = 2208) 7 MG/DL CREATININE (test code = 2214) 0.70 MG/DL eGFR AMER. (test code 124 ML/MIN/1.73 = 22690) eGFR NON- AMER. (test 107 ML/MIN/1.73 code = 61292) SODIUM (test code = 2231) 140 MEQ/L POTASSIUM (test code = 2228) 4.3 MEQ/L CHLORIDE (test code = 2215) 99 MEQ/L CARBON DIOXIDE (test code = 26 MEQ/L 2206) CALCIUM (test code = 2209) 11.1 MG/DL BASIC METABOLIC [id number] 00:00:00 Test Item Value Reference Range Interpretation Comments GLUCOSE (test code = 2217) 89 MG/DL BUN (test code = 2208) 7 MG/DL CREATININE (test code = 2214) 0.70 MG/DL eGFR AMER. (test code 124 ML/MIN/1.73 = 24813) eGFR NON- AMER. (test 107 ML/MIN/1.73 code = 81075) SODIUM (test code = 2231) 140 MEQ/L POTASSIUM (test code = 2228) 4.3 MEQ/L CHLORIDE (test code = 2215) 99 MEQ/L CARBON DIOXIDE (test code = 26 MEQ/L 2206) CALCIUM (test code = 2209) 11.1 MG/DL [id number] 00:00:00 Test Item Value Reference Range Interpretation Comments TSH, THIRD GENERATION (test code 1.020 UIU/ML = 2821) [id number] 00:00:00 Test Item Value Reference Range Interpretation Comments TSH, THIRD GENERATION (test code 1.020 UIU/ML = 2821) [id number] 00:00:00 Test Item Value Reference Range Interpretation Comments TSH, THIRD GENERATION (test code 1.020 UIU/ML = 2821) BASIC METABOLIC [id number] 00:00:00 Test Item Value Reference Range Interpretation Comments GLUCOSE (test code = 2217) 89 MG/DL BUN (test code = 2208) 7 MG/DL CREATININE (test code = 2214) 0.70 MG/DL eGFR AMER. (test code 124 ML/MIN/1.73 = 84463) eGFR NON- AMER. (test 107 ML/MIN/1.73 code = 88494) SODIUM (test code = 2231) 140 MEQ/L POTASSIUM (test code = 2228) 4.3 MEQ/L CHLORIDE (test code = 2215) 99 MEQ/L CARBON DIOXIDE (test code = 26 MEQ/L 2206) CALCIUM (test code = 2209) 11.1 MG/DL [id number] 00:00:00 Test Item Value Reference Range Interpretation Comments TSH, THIRD GENERATION (test code 1.020 UIU/ML = 2821) [id number] 00:00:00 Test Item Value Reference Range Interpretation Comments TSH, THIRD GENERATION (test code 1.020 UIU/ML = 2821) CBC W/AUTO [id number] 00:00:00 Test Item Value Reference Range Interpretation Comments WBC (test code = 1001) 8.0 K/UL RBC (test code = 1002) 4.50 M/UL HEMOGLOBIN (test code = 1003) 13.5 G/DL HEMATOCRIT (test code = 1004) 39.1 % MCV (test code = 1005) 86.9 fL MCH (test code = 1006) 30.0 PG MCHC (test code = 1007) 34.5 G/DL RDW (test code = 1038) 13.2 % NEUTROPHILS (test code = 1008) 61.7 % LYMPHOCYTES (test code = 1010) 28.3 % MONOCYTES (test code = 1011) 7.7 % EOSINOPHILS (test code = 1012) 1.8 % BASOPHILS (test code = 1013) 0.5 % PLATELET COUNT (test code = 1015) 247 K/UL CBC W/AUTO [id number] 00:00:00 Test Item Value Reference Range Interpretation Comments WBC (test code = 1001) 8.0 K/UL RBC (test code = 1002) 4.50 M/UL HEMOGLOBIN (test code = 1003) 13.5 G/DL HEMATOCRIT (test code = 1004) 39.1 % MCV (test code = 1005) 86.9 fL MCH (test code = 1006) 30.0 PG MCHC (test code = 1007) 34.5 G/DL RDW (test code = 1038) 13.2 % NEUTROPHILS (test code = 1008) 61.7 % LYMPHOCYTES (test code = 1010) 28.3 % MONOCYTES (test code = 1011) 7.7 % EOSINOPHILS (test code = 1012) 1.8 % BASOPHILS (test code = 1013) 0.5 % PLATELET COUNT (test code = 1015) 247 K/UL CBC W/AUTO [id number] 00:00:00 Test Item Value Reference Range Interpretation Comments WBC (test code = 1001) 8.0 K/UL RBC (test code = 1002) 4.50 M/UL HEMOGLOBIN (test code = 1003) 13.5 G/DL HEMATOCRIT (test code = 1004) 39.1 % MCV (test code = 1005) 86.9 fL MCH (test code = 1006) 30.0 PG MCHC (test code = 1007) 34.5 G/DL RDW (test code = 1038) 13.2 % NEUTROPHILS (test code = 1008) 61.7 % LYMPHOCYTES (test code = 1010) 28.3 % MONOCYTES (test code = 1011) 7.7 % EOSINOPHILS (test code = 1012) 1.8 % BASOPHILS (test code = 1013) 0.5 % PLATELET COUNT (test code = 1015) 247 K/UL HEMOGLOBIN [id number] 00:00:00 Test Item Value Reference Range Interpretation Comments HEMOGLOBIN A1c (test code = 36586) 5.3 % HEMOGLOBIN [id number] 00:00:00 Test Item Value Reference Range Interpretation Comments HEMOGLOBIN A1c (test code = 84843) 5.3 % HEMOGLOBIN [id number] 00:00:00 Test Item Value Reference Range Interpretation Comments HEMOGLOBIN A1c (test code = 47500) 5.3 % LIPID [id number] 00:00:00 Test Item Value Reference Range Interpretation Comments CHOLESTEROL (test code = 2210) 226 MG/DL TRIGLYCERIDES (test code = 2232) 169 MG/DL HDL CHOLESTEROL (test code = 2220) 60 MG/DL CALC LDL CHOL (test code = 2237) 132 MG/DL RISK RATIO LDL/HDL (test code = 2.20 RATIO 2238) LIPID [id number] 00:00:00 Test Item Value Reference Range Interpretation Comments CHOLESTEROL (test code = 2210) 226 MG/DL TRIGLYCERIDES (test code = 2232) 169 MG/DL HDL CHOLESTEROL (test code = 2220) 60 MG/DL CALC LDL CHOL (test code = 2237) 132 MG/DL RISK RATIO LDL/HDL (test code = 2.20 RATIO 2238) BASIC METABOLIC [id number] 00:00:00 Test Item Value Reference Range Interpretation Comments GLUCOSE (test code = 2217) 89 MG/DL BUN (test code = 2208) 7 MG/DL CREATININE (test code = 2214) 0.70 MG/DL eGFR AMER. (test code 124 ML/MIN/1.73 = 92567) eGFR NON- AMER. (test 107 ML/MIN/1.73 code = 52918) SODIUM (test code = 2231) 140 MEQ/L POTASSIUM (test code = 2228) 4.3 MEQ/L CHLORIDE (test code = 2215) 99 MEQ/L CARBON DIOXIDE (test code = 26 MEQ/L 2206) CALCIUM (test code = 2209) 11.1 MG/DL BASIC METABOLIC [id number] 00:00:00 Test Item Value Reference Range Interpretation Comments GLUCOSE (test code = 2217) 89 MG/DL BUN (test code = 2208) 7 MG/DL CREATININE (test code = 2214) 0.70 MG/DL eGFR AMER. (test code 124 ML/MIN/1.73 = 07911) eGFR NON- AMER. (test 107 ML/MIN/1.73 code = 68232) SODIUM (test code = 2231) 140 MEQ/L POTASSIUM (test code = 2228) 4.3 MEQ/L CHLORIDE (test code = 2215) 99 MEQ/L CARBON DIOXIDE (test code = 26 MEQ/L 2206) CALCIUM (test code = 2209) 11.1 MG/DL [id number] 00:00:00 Test Item Value Reference Range Interpretation Comments TSH, THIRD GENERATION (test code 1.020 UIU/ML = 2821) [id number] 00:00:00 Test Item Value Reference Range Interpretation Comments TSH, THIRD GENERATION (test code 1.020 UIU/ML = 2821) [id number] 00:00:00 Test Item Value Reference Range Interpretation Comments TSH, THIRD GENERATION (test code 1.020 UIU/ML = 2821) CHEM [id number] 15:16:00 Test Item Value Reference Range Interpretation Comments eGFR (test code = eGFR) 101 [facility]2018-07-21 15:16:00 Test Item Value Reference Range Interpretation Comments Bili Total (test code = Bili Total) 0.4 0.2-1.3 [facility]2018-07-21 15:16:00 Test Item Value Reference Range Interpretation Comments Alk Phos (test code = Alk Phos) 83 39-136 [facility]2018-07-21 15:16:00 Test Item Value Reference Range Interpretation Comments AST (test code = AST) 14 See_Comment [Auto mated message] The system which ge nerated this result transmit kuldip reference range : <=37. The reference range was not used to interpr et this result as abiodun l/abnormal. [facility]2018-07-21 15:16:00 Test Item Value Reference Range Interpretation Comments ALT (test code = ALT) 22 See_Comment [Auto mated message] The system which ge nerated this result transmit kuldip reference range : <=65. The reference range was not used to interpr et this result as abiodun l/abnormal. [facility]2018-07-21 15:16:00 Test Item Value Reference Range Interpretation Comments Glucose Lvl (test code = Glucose Lvl) 125 70-99 [facility]2018-07-21 15:16:00 Test Item Value Reference Range Interpretation Comments A/G Ratio (test code = A/G Ratio) 0.8 1 0.7-1.6 [facility]2018-07-21 15:16:00 Test Item Value Reference Range Interpretation Comments Globulin (test code = Globulin) 4.5 2.7-4.2 [facility]2018-07-21 15:16:00 Test Item Value Reference Range Interpretation Comments B/C Ratio (test code = B/C Ratio) 8 1 6-25 [facility]2018-07-21 15:16:00 Test Item Value Reference Range Interpretation Comments Calcium Lvl (test code = Calcium Lvl) 10.2 8.5-10.5 [facility]2018-07-21 15:16:00 Test Item Value Reference Range Interpretation Comments Total Protein (test code = Total 7.9 6.4-8.4 Protein) [facility]2018-07-21 15:16:00 Test Item Value Reference Range Interpretation Comments Albumin Lvl (test code = Albumin Lvl) 3.4 3.5-5.0 [facility]2018-07-21 15:16:00 Test Item Value Reference Range Interpretation Comments Chloride Lvl (test code = Chloride Lvl) 102 95-109 [facility]2018-07-21 15:16:00 Test Item Value Reference Range Interpretation Comments CO2 (test code = CO2) 30 24-32 [facility]2018-07-21 15:16:00 Test Item Value Reference Range Interpretation Comments AGAP (test code = AGAP) 10.8 10.0-20.0 [facility]2018-07-21 15:16:00 Test Item Value Reference Range Interpretation Comments BUN (test code = BUN) 7 7-22 [facility]2018-07-21 15:16:00 Test Item Value Reference Range Interpretation Comments Sodium Lvl (test code = Sodium Lvl) 139 135-145 [facility]2018-07-21 15:16:00 Test Item Value Reference Range Interpretation Comments Potassium Lvl (test code = Potassium 3.8 3.5-5.1 Lvl) [facility]2018-07-21 15:16:00 Test Item Value Reference Range Interpretation Comments Creatinine Lvl (test code = Creatinine 0.83 0.50-1.40 Lvl) [facility]2018-07-21 15:16:00 Test Item Value Reference Range Interpretation Comments Lipase Lvl (test code = Lipase Lvl) 204 73-393 [id number] 15:16:00 Test Item Value Reference Range Interpretation Comments S Preg (test code = S Negative *NA*(10/13/17 Preg) 10:16 AM) [id number] 15:16:00 Test Item Value Reference Range Interpretation Comments Monocytes (test code = Monocytes) 7.5 2.0-12.0 [facility] [id number] 15:16:00 Test Item Value Reference Range Interpretation Comments Segs (test code = Segs) 64.6 45.0-75.0 [facility] S[id number] 15:16:00 Test Item Value Reference Range Interpretation Comments Lymphocytes (test code = Lymphocytes) 26.4 20.0-40.0 [facility] [id number] 15:16:00 Test Item Value Reference Range Interpretation Comments Neutrophils # (test code = Neutrophils 4.8 1.5-8.1 #) [facility] [id number] 15:16:00 Test Item Value Reference Range Interpretation Comments Basophils (test code = 0.4 See_Comment [Aut omated message] The Basophils) system which ge nerated this result tra nsmitted reference range : <=1.0. The reference r nilam was not used to int erpret this result as normal/abnormal . [facility] SystemKnvtrfwKQKKNUILAK0694-64-24 15:16:00 Test Item Value Reference Range Interpretation Comments Eosinophils (test code = 1.1 See_Comment [A utomated message] The Eosinophils) system which ge nerated this result tra nsmitted reference range : <=4.0. The reference r nilam was not used to int erpret this result as normal/abnormal . [facility] SystemLebxmzrEAHYAKRSBF6658-92-74 15:16:00 Test Item Value Reference Range Interpretation Comments Monocytes # (test code 0.6 See_Comment [Aut omated message] The = Monocytes #) system which generated this result tra nsmitted reference range : <=0.8. The reference r nilam was not used to int erpret this result as normal/abnormal . [facility] Syst[id number] 15:16:00 Test Item Value Reference Range Interpretation Comments Lymphocytes # (test code = Lymphocytes 2.0 1.0-5.5 #) [facility] Syst[id number] 15:16:00 Test Item Value Reference Range Interpretation Comments Eosinophils # (test code 0.1 See_Comment [A utomated message] The = Eosinophils #) system whic h generated this result tra nsmitted reference range : <=0.5. The reference r nilam was not used to int erpret this result as normal/abnormal . [facility]ub[facility]myLTAWBTRNBH0426-[facility] 15:16:00 Test Item Value Reference Range Interpretation Comments RDW (test code = RDW) 13.4 11.5-14.5 [facility]EmqlhsoIIYYMFLQSG4952-49-03 15:16:00 Test Item Value Reference Range Interpretation Comments MCH (test code = MCH) 30.7 pg 27.0-31.0 [id number] 15:16:00 Test Item Value Reference Range Interpretation Comments Platelet (test code = Platelet) 204 133-450 [facility]YwinbuePUEBVAAGZZ0402-39-98 15:16:00 Test Item Value Reference Range Interpretation Comments MCHC (test code = MCHC) 34.7 32.0-36.0 [facility] Hospit[id number] 15:16:00 Test Item Value Reference Range Interpretation Comments MCV (test code = MCV) 88.5 80.0-98.0 [facility] Ho[id number] 15:16:00 Test Item Value Reference Range Interpretation Comments MPV (test code = MPV) 8.2 7.4-10.4 [facility]ocaHKXPTJKHPW2080-[facility] 15:16:00 Test Item Value Reference Range Interpretation Comments Hct (test code = Hct) 38.7 36.0-48.0 [facility] Hospit[id number] 15:16:00 Test Item Value Reference Range Interpretation Comments Hgb (test code = Hgb) 13.4 12.0-16.0 [facility] HospitalQexdehsNGLMTYNIGX5757-23-25 15:16:00 Test Item Value Reference Range Interpretation Comments RBC (test code = RBC) 4.37 4.20-5.40 [facility] HospitalChnirjjSNFWSNPRUT7010-58-25 15:16:00 Test Item Value Reference Range Interpretation Comments WBC (test code = WBC) 7.4 3.7-10.4 [facility] AND [id number] 15:16:00 Test Item Value Reference Range Interpretation Comments UA Urobilinogen (test code = UA <=1.0 mg/dL 0.1-1.0 Urobilinogen) [facility] AND [id number] 15:16:00 Test Item Value Reference Range Interpretation Comments UA Mucus (test code = UA Mucus) Few /LPF [facility] AND [id number] 15:16:00 Test Item Value Reference Range Interpretation Comments UA CaOx Judy (test code = UA CaOx Many /HPF Judy) [facility] AND [id number] 15:16:00 Test Item Value Reference Range Interpretation Comments UA RBC (test code = 3 See_Comment [Automa kuldip message] The UA RBC) system which ge nerated this result transmit kuldip reference range : <=2. The reference range was not used to interpr et this result as abiodun l/abnormal. [facility] AND [id number] 15:16:00 Test Item Value Reference Range Interpretation Comments UA WBC (test code = 2 See_Comment [Automa kuldip message] The UA WBC) system which ge nerated this result transmit kuldip reference range : <=5. The reference range was not used to interpr et this result as abiodun l/abnormal. [facility] AND [id number] 15:16:00 Test Item Value Reference Range Interpretation Comments UA Leuk Est (test Negative (10/13/17 10:16 code = UA Leuk Est) AM) [facility] AND [id number] 15:16:00 Test Item Value Reference Range Interpretation Comments UA Sq Epi (test code = UA Sq Epi) Few /LPF [facility] AND [id number] 15:16:00 Test Item Value Reference Range Interpretation Comments UA Bacteria (test code = UA Occasional /HPF Bacteria) [facility] AND [id number] 15:16:00 Test Item Value Reference Range Interpretation Comments UA Blood (test code = Negative (10/13/17 10:16 UA Blood) AM) [facility] AND [id number] 15:16:00 Test Item Value Reference Range Interpretation Comments UA Nitrite (test code Negative (10/13/17 10:16 = UA Nitrite) AM) [facility] AND [id number] 15:16:00 Test Item Value Reference Range Interpretation Comments UA pH (test code = UA pH) 6.0 1 5.0-8.0 [facility] AND [id number] 15:16:00 Test Item Value Reference Range Interpretation Comments UA Spec Grav (test code = UA Spec 1.008 1 Grav) [facility] AND [id number] 15:16:00 Test Item Value Reference Range Interpretation Comments UA Ketones (test code = UA Negative mg/dL Ketones) [facility] AND [id number] 15:16:00 Test Item Value Reference Range Interpretation Comments UA Bili (test code = Negative *NA*(10/13/17 UA Bili) 10:16 AM) [facility] AND [id number] 15:16:00 Test Item Value Reference Range Interpretation Comments UA Glucose (test code = UA Negative mg/dL Glucose) [facility] AND [id number] 15:16:00 Test Item Value Reference Range Interpretation Comments UA Color (test code = Yellow *NA*(10/13/17 UA Color) 10:16 AM) [facility] AND [id number] 15:16:00 Test Item Value Reference Range Interpretation Comments UA Turbidity (test code Slight *ABN*(10/13/17 = UA Turbidity) 10:16 AM) [facility] AND [id number] 15:16:00 Test Item Value Reference Range Interpretation Comments UA Protein (test code = UA Negative mg/dL Protein) [facility]2018-07-21 15:16:00 Test Item Value Reference Range Interpretation Comments eGFR (test code = eGFR) 101 [facility]2018-07-21 15:16:00 Test Item Value Reference Range Interpretation Comments Bili Total (test code = Bili Total) 0.4 0.2-1.3 [facility]2018-07-21 15:16:00 Test Item Value Reference Range Interpretation Comments Alk Phos (test code = Alk Phos) 83 39-136 [facility]2018-07-21 15:16:00 Test Item Value Reference Range Interpretation Comments AST (test code = AST) 14 See_Comment [Auto mated message] The system which ge nerated this result transmit kuldip reference range : <=37. The reference range was not used to interpr et this result as abiodun l/abnormal. [facility] [place] [id number] 15:16:00 Test Item Value Reference Range Interpretation Comments ALT (test code = ALT) 22 See_Comment [Auto mated message] The system which ge nerated this result transmit kuldip reference range : <=65. The reference range was not used to interpr et this result as abiodun l/abnormal. [facility]2018-07-21 15:16:00 Test Item Value Reference Range Interpretation Comments Glucose Lvl (test code = Glucose Lvl) 125 70-99 [facility]2018-07-21 15:16:00 Test Item Value Reference Range Interpretation Comments A/G Ratio (test code = A/G Ratio) 0.8 1 0.7-1.6 [facility]2018-07-21 15:16:00 Test Item Value Reference Range Interpretation Comments Globulin (test code = Globulin) 4.5 2.7-4.2 [facility]2018-07-21 15:16:00 Test Item Value Reference Range Interpretation Comments B/C Ratio (test code = B/C Ratio) 8 1 6-25 [facility]2018-07-21 15:16:00 Test Item Value Reference Range Interpretation Comments Calcium Lvl (test code = Calcium Lvl) 10.2 8.5-10.5 [facility]2018-07-21 15:16:00 Test Item Value Reference Range Interpretation Comments Total Protein (test code = Total 7.9 6.4-8.4 Protein) [facility]2018-07-21 15:16:00 Test Item Value Reference Range Interpretation Comments Albumin Lvl (test code = Albumin Lvl) 3.4 3.5-5.0 [facility]2018-07-21 15:16:00 Test Item Value Reference Range Interpretation Comments Chloride Lvl (test code = Chloride Lvl) 102 95-109 [facility] [place] [id number] 15:16:00 Test Item Value Reference Range Interpretation Comments CO2 (test code = CO2) 30 24-32 [facility]2018-07-21 15:16:00 Test Item Value Reference Range Interpretation Comments AGAP (test code = AGAP) 10.8 10.0-20.0 [facility] [place] [id number] 15:16:00 Test Item Value Reference Range Interpretation Comments BUN (test code = BUN) 7 7-22 [facility]2018-07-21 15:16:00 Test Item Value Reference Range Interpretation Comments Sodium Lvl (test code = Sodium Lvl) 139 135-145 [facility]2018-07-21 15:16:00 Test Item Value Reference Range Interpretation Comments Potassium Lvl (test code = Potassium 3.8 3.5-5.1 Lvl) [facility]2018-07-21 15:16:00 Test Item Value Reference Range Interpretation Comments Creatinine Lvl (test code = Creatinine 0.83 0.50-1.40 Lvl) [facility]2018-07-21 15:16:00 Test Item Value Reference Range Interpretation Comments Lipase Lvl (test code = Lipase Lvl) 204 73-393 [place] [id number] 15:16:00 Test Item Value Reference Range Interpretation Comments S Preg (test code = S Negative *NA*(10/13/17 Preg) 10:16 AM) [facility] [id number] 15:16:00 Test Item Value Reference Range Interpretation Comments Monocytes (test code = Monocytes) 7.5 2.0-12.0 [facility] SystemVkteuhyGTKDVLCKRD7811-78-20 15:16:00 Test Item Value Reference Range Interpretation Comments Segs (test code = Segs) 64.6 45.0-75.0 [facility] SystemRljmfdsYPSNAKVZOV4636-63-55 15:16:00 Test Item Value Reference Range Interpretation Comments Lymphocytes (test code = Lymphocytes) 26.4 20.0-40.0 [facility] SystemDfhqtxjNTGUUPPOVP4312-73-59 15:16:00 Test Item Value Reference Range Interpretation Comments Neutrophils # (test code = Neutrophils 4.8 1.5-8.1 #) [facility] [id number] 15:16:00 Test Item Value Reference Range Interpretation Comments Basophils (test code = 0.4 See_Comment [Aut omated message] The Basophils) system which ge nerated this result tra nsmitted reference range : <=1.0. The reference r nilam was not used to int erpret this result as normal/abnormal . [facility] [id number] 15:16:00 Test Item Value Reference Range Interpretation Comments Eosinophils (test code = 1.1 See_Comment [A utomated message] The Eosinophils) system which ge nerated this result tra nsmitted reference range : <=4.0. The reference r nilam was not used to int erpret this result as normal/abnormal . [facility] SystemDumizueUJGDHQNLBU7381-05-49 15:16:00 Test Item Value Reference Range Interpretation Comments Monocytes # (test code 0.6 See_Comment [Aut omated message] The = Monocytes #) system which generated this result tra nsmitted reference range : <=0.8. The reference r nilam was not used to int erpret this result as normal/abnormal . [facility] SystemHyptkssEXIYWFEPHQ2740-08-66 15:16:00 Test Item Value Reference Range Interpretation Comments Lymphocytes # (test code = Lymphocytes 2.0 1.0-5.5 #) [facility] SystemZeewgqcZRUWQOVEEE2851-57-75 15:16:00 Test Item Value Reference Range Interpretation Comments Eosinophils # (test code 0.1 See_Comment [A utomated message] The = Eosinophils #) system whic h generated this result tra nsmitted reference range : <=0.5. The reference r nilam was not used to int erpret this result as normal/abnormal . [facility] SystemGecxybgCPNQVWSJVH5648-26-55 15:16:00 Test Item Value Reference Range Interpretation Comments RDW (test code = RDW) 13.4 11.5-14.5 [facility] SystemQbayonlNRDACSLKXB3302-35-04 15:16:00 Test Item Value Reference Range Interpretation Comments MCH (test code = MCH) 30.7 pg 27.0-31.0 [facility] SystemWditjplRVFVVUYRCA0413-74-90 15:16:00 Test Item Value Reference Range Interpretation Comments Platelet (test code = Platelet) 204 133-450 [facility] SystemJotsuzyXZKUAHKUAO4255-58-85 15:16:00 Test Item Value Reference Range Interpretation Comments MCHC (test code = MCHC) 34.7 32.0-36.0 [facility] SystemRtbmvasVUMZUQOQJX0994-77-26 15:16:00 Test Item Value Reference Range Interpretation Comments MCV (test code = MCV) 88.5 80.0-98.0 [facility] SystemNgfuhfsYOPAAFKFEM4943-89-29 15:16:00 Test Item Value Reference Range Interpretation Comments MPV (test code = MPV) 8.2 7.4-10.4 [facility] SystemHunphmyABTRGCWVDG4041-33-69 15:16:00 Test Item Value Reference Range Interpretation Comments Hct (test code = Hct) 38.7 36.0-48.0 [facility] SystemHkhqlcrXDYMGQSCHE8756-16-67 15:16:00 Test Item Value Reference Range Interpretation Comments Hgb (test code = Hgb) 13.4 12.0-16.0 [facility] SystemNfofihgLZHWOWJGUY3503-42-99 15:16:00 Test Item Value Reference Range Interpretation Comments RBC (test code = RBC) 4.37 4.20-5.40 [facility] SystemQoaxhnoCYBBJPWPYE2527-87-59 15:16:00 Test Item Value Reference Range Interpretation Comments WBC (test code = WBC) 7.4 3.7-10.4 [facility] AND [id number] 15:16:00 Test Item Value Reference Range Interpretation Comments UA Urobilinogen (test code = UA <=1.0 mg/dL 0.1-1.0 Urobilinogen) [facility] AND [id number] 15:16:00 Test Item Value Reference Range Interpretation Comments UA Mucus (test code = UA Mucus) Few /LPF [facility] AND [id number] 15:16:00 Test Item Value Reference Range Interpretation Comments UA CaOx Judy (test code = UA CaOx Many /HPF Judy) [facility] AND [id number] 15:16:00 Test Item Value Reference Range Interpretation Comments UA RBC (test code = 3 See_Comment [Automa kuldip message] The UA RBC) system which ge nerated this result transmit kuldip reference range : <=2. The reference range was not used to interpr et this result as abiodun l/abnormal. [facility] AND [id number] 15:16:00 Test Item Value Reference Range Interpretation Comments UA WBC (test code = 2 See_Comment [Automa kuldip message] The UA WBC) system which ge nerated this result transmit kuldip reference range : <=5. The reference range was not used to interpr et this result as abiodun l/abnormal. [facility] AND [id number] 15:16:00 Test Item Value Reference Range Interpretation Comments UA Leuk Est (test Negative (10/13/17 10:16 code = UA Leuk Est) AM) [facility] AND [id number] 15:16:00 Test Item Value Reference Range Interpretation Comments UA Sq Epi (test code = UA Sq Epi) Few /LPF [facility] AND [id number] 15:16:00 Test Item Value Reference Range Interpretation Comments UA Bacteria (test code = UA Occasional /HPF Bacteria) [facility] AND [id number] 15:16:00 Test Item Value Reference Range Interpretation Comments UA Blood (test code = Negative (10/13/17 10:16 UA Blood) AM) [facility] AND [id number] 15:16:00 Test Item Value Reference Range Interpretation Comments UA Nitrite (test code Negative (10/13/17 10:16 = UA Nitrite) AM) [facility] AND [id number] 15:16:00 Test Item Value Reference Range Interpretation Comments UA pH (test code = UA pH) 6.0 1 5.0-8.0 [facility] AND [id number] 15:16:00 Test Item Value Reference Range Interpretation Comments UA Spec Grav (test code = UA Spec 1.008 1 Grav) [facility] AND [id number] 15:16:00 Test Item Value Reference Range Interpretation Comments UA Ketones (test code = UA Negative mg/dL Ketones) [facility] AND [id number] 15:16:00 Test Item Value Reference Range Interpretation Comments UA Bili (test code = Negative *NA*(10/13/17 UA Bili) 10:16 AM) [facility] AND [id number] 15:16:00 Test Item Value Reference Range Interpretation Comments UA Glucose (test code = UA Negative mg/dL Glucose) [facility] AND [id number] 15:16:00 Test Item Value Reference Range Interpretation Comments UA Color (test code = Yellow *NA*(10/13/17 UA Color) 10:16 AM) [facility] AND [id number] 15:16:00 Test Item Value Reference Range Interpretation Comments UA Turbidity (test code Slight *ABN*(10/13/17 = UA Turbidity) 10:16 AM) [facility] AND [id number] 15:16:00 Test Item Value Reference Range Interpretation Comments UA Protein (test code = UA Negative mg/dL Protein) [facility]2018-07-21 15:16:00 Test Item Value Reference Range Interpretation Comments eGFR (test code = eGFR) 101 [facility]2018-07-21 15:16:00 Test Item Value Reference Range Interpretation Comments Bili Total (test code = Bili Total) 0.4 0.2-1.3 [facility]2018-07-21 15:16:00 Test Item Value Reference Range Interpretation Comments Alk Phos (test code = Alk Phos) 83 39-136 [facility]2018-07-21 15:16:00 Test Item Value Reference Range Interpretation Comments AST (test code = AST) 14 See_Comment [Auto mated message] The system which ge nerated this result transmit kuldip reference range : <=37. The reference range was not used to interpr et this result as abiodun l/abnormal. [facility]2018-07-21 15:16:00 Test Item Value Reference Range Interpretation Comments ALT (test code = ALT) 22 See_Comment [Auto mated message] The system which ge nerated this result transmit kuldip reference range : <=65. The reference range was not used to interpr et this result as abiodun l/abnormal. [facility]2018-07-21 15:16:00 Test Item Value Reference Range Interpretation Comments Glucose Lvl (test code = Glucose Lvl) 125 70-99 [facility]2018-07-21 15:16:00 Test Item Value Reference Range Interpretation Comments A/G Ratio (test code = A/G Ratio) 0.8 1 0.7-1.6 [facility]2018-07-21 15:16:00 Test Item Value Reference Range Interpretation Comments Globulin (test code = Globulin) 4.5 2.7-4.2 [facility]2018-07-21 15:16:00 Test Item Value Reference Range Interpretation Comments B/C Ratio (test code = B/C Ratio) 8 1 6-25 [facility]2018-07-21 15:16:00 Test Item Value Reference Range Interpretation Comments Calcium Lvl (test code = Calcium Lvl) 10.2 8.5-10.5 [facility]2018-07-21 15:16:00 Test Item Value Reference Range Interpretation Comments Total Protein (test code = Total 7.9 6.4-8.4 Protein) [facility]2018-07-21 15:16:00 Test Item Value Reference Range Interpretation Comments Albumin Lvl (test code = Albumin Lvl) 3.4 3.5-5.0 [facility]2018-07-21 15:16:00 Test Item Value Reference Range Interpretation Comments Chloride Lvl (test code = Chloride Lvl) 102 95-109 [facility]2018-07-21 15:16:00 Test Item Value Reference Range Interpretation Comments CO2 (test code = CO2) 30 24-32 [facility]2018-07-21 15:16:00 Test Item Value Reference Range Interpretation Comments AGAP (test code = AGAP) 10.8 10.0-20.0 [facility]2018-07-21 15:16:00 Test Item Value Reference Range Interpretation Comments BUN (test code = BUN) 7 7- [facility]2018-07-21 15:16:00 Test Item Value Reference Range Interpretation Comments Sodium Lvl (test code = Sodium Lvl) 139 135-145 [facility]2018-07-21 15:16:00 Test Item Value Reference Range Interpretation Comments Potassium Lvl (test code = Potassium 3.8 3.5-5.1 Lvl) [facility]2018-07-21 15:16:00 Test Item Value Reference Range Interpretation Comments Creatinine Lvl (test code = Creatinine 0.83 0.50-1.40 Lvl) [facility]2018-07-21 15:16:00 Test Item Value Reference Range Interpretation Comments Lipase Lvl (test code = Lipase Lvl) 204 73-393 [facility]PHMOYEHGSZTG9467-45-11 15:16:00 Test Item Value Reference Range Interpretation Comments S Preg (test code = S Negative *NA*(10/13/17 Preg) 10:16 AM) [facility] SystemXnbhigzIXAUCMPTKM5079-67-41 15:16:00 Test Item Value Reference Range Interpretation Comments Monocytes (test code = Monocytes) 7.5 2.0-12.0 [facility] SystemQjsvvtgRYBTGLJWLU0711-37-66 15:16:00 Test Item Value Reference Range Interpretation Comments Segs (test code = Segs) 64.6 45.0-75.0 [facility] SystemHfkoncaTPEBZOTPOT0982-88-56 15:16:00 Test Item Value Reference Range Interpretation Comments Lymphocytes (test code = Lymphocytes) 26.4 20.0-40.0 [facility] SystemGtzsarmGLRZGGQOBR0524-87-01 15:16:00 Test Item Value Reference Range Interpretation Comments Neutrophils # (test code = Neutrophils 4.8 1.5-8.1 #) [facility] Syst[id number] 15:16:00 Test Item Value Reference Range Interpretation Comments Basophils (test code = 0.4 See_Comment [Aut omated message] The Basophils) system which ge nerated this result tra nsmitted reference range : <=1.0. The reference r nilam was not used to int erpret this result as normal/abnormal . [facility] SystemWdckajuWZGEISJQNK5789-27-86 15:16:00 Test Item Value Reference Range Interpretation Comments Eosinophils (test code = 1.1 See_Comment [A utomated message] The Eosinophils) system which ge nerated this result tra nsmitted reference range : <=4.0. The reference r nilam was not used to int erpret this result as normal/abnormal . [facility] SystemBbuymdiCOWHJTSRAP3559-38-53 15:16:00 Test Item Value Reference Range Interpretation Comments Monocytes # (test code 0.6 See_Comment [Aut omated message] The = Monocytes #) system which generated this result tra nsmitted reference range : <=0.8. The reference r nilam was not used to int erpret this result as normal/abnormal . [facility] SystemMljnpevAAUYSZUCRJ7923-46-76 15:16:00 Test Item Value Reference Range Interpretation Comments Lymphocytes # (test code = Lymphocytes 2.0 1.0-5.5 #) [facility] SystemVlybdytYQOPALTGIG6336-94-12 15:16:00 Test Item Value Reference Range Interpretation Comments Eosinophils # (test code 0.1 See_Comment [A utomated message] The = Eosinophils #) system whic h generated this result tra nsmitted reference range : <=0.5. The reference r nilam was not used to int erpret this result as normal/abnormal . [facility] SystemCoznvyiHIXICDRFVE1529-22-37 15:16:00 Test Item Value Reference Range Interpretation Comments RDW (test code = RDW) 13.4 11.5-14.5 [facility] SystemLoroagbTKENBPNBPJ3425-29-82 15:16:00 Test Item Value Reference Range Interpretation Comments MCH (test code = MCH) 30.7 pg 27.0-31.0 [facility] SystemXkhekgbSMKQLXQOVU8208-86-36 15:16:00 Test Item Value Reference Range Interpretation Comments Platelet (test code = Platelet) 204 133-450 [facility] SystemDpjraxoOPIBZONQCY4245-61-82 15:16:00 Test Item Value Reference Range Interpretation Comments MCHC (test code = MCHC) 34.7 32.0-36.0 [facility] SystemLpxkjeqZSZTWCISZX7463-70-17 15:16:00 Test Item Value Reference Range Interpretation Comments MCV (test code = MCV) 88.5 80.0-98.0 [facility] SystemWfiiveyYQALXOYXUR0225-14-62 15:16:00 Test Item Value Reference Range Interpretation Comments MPV (test code = MPV) 8.2 7.4-10.4 [facility] SystemBjuoxjtMRHFKJZADX4716-31-79 15:16:00 Test Item Value Reference Range Interpretation Comments Hct (test code = Hct) 38.7 36.0-48.0 [facility] SystemKwafzmpYJZXIQRPQC5328-38-94 15:16:00 Test Item Value Reference Range Interpretation Comments Hgb (test code = Hgb) 13.4 12.0-16.0 [facility] SystemTznnhqpYBDDLHNOWP4284-61-42 15:16:00 Test Item Value Reference Range Interpretation Comments RBC (test code = RBC) 4.37 4.20-5.40 [facility] SystemBzgtdymXQDEYYIQHJ8216-85-59 15:16:00 Test Item Value Reference Range Interpretation Comments WBC (test code = WBC) 7.4 3.7-10.4 [facility] AND [id number] 15:16:00 Test Item Value Reference Range Interpretation Comments UA Urobilinogen (test code = UA <=1.0 mg/dL 0.1-1.0 Urobilinogen) [facility] AND [id number] 15:16:00 Test Item Value Reference Range Interpretation Comments UA Mucus (test code = UA Mucus) Few /LPF [facility] AND [id number] 15:16:00 Test Item Value Reference Range Interpretation Comments UA CaOx Judy (test code = UA CaOx Many /HPF Judy) [facility] AND [id number] 15:16:00 Test Item Value Reference Range Interpretation Comments UA RBC (test code = 3 See_Comment [Automa kuldip message] The UA RBC) system which ge nerated this result transmit kuldip reference range : <=2. The reference range was not used to interpr et this result as abiodun l/abnormal. [facility] AND [id number] 15:16:00 Test Item Value Reference Range Interpretation Comments UA WBC (test code = 2 See_Comment [Automa kuldip message] The UA WBC) system which ge nerated this result transmit kuldip reference range : <=5. The reference range was not used to interpr et this result as abiodun l/abnormal. [facility] AND [id number] 15:16:00 Test Item Value Reference Range Interpretation Comments UA Leuk Est (test Negative (10/13/17 10:16 code = UA Leuk Est) AM) [facility] AND [id number] 15:16:00 Test Item Value Reference Range Interpretation Comments UA Sq Epi (test code = UA Sq Epi) Few /LPF [facility] AND [id number] 15:16:00 Test Item Value Reference Range Interpretation Comments UA Bacteria (test code = UA Occasional /HPF Bacteria) [facility] AND [id number] 15:16:00 Test Item Value Reference Range Interpretation Comments UA Blood (test code = Negative (10/13/17 10:16 UA Blood) AM) [facility] AND [id number] 15:16:00 Test Item Value Reference Range Interpretation Comments UA Nitrite (test code Negative (10/13/17 10:16 = UA Nitrite) AM) [facility] AND [id number] 15:16:00 Test Item Value Reference Range Interpretation Comments UA pH (test code = UA pH) 6.0 1 5.0-8.0 [facility] AND [id number] 15:16:00 Test Item Value Reference Range Interpretation Comments UA Spec Grav (test code = UA Spec 1.008 1 Grav) [facility] AND [id number] 15:16:00 Test Item Value Reference Range Interpretation Comments UA Ketones (test code = UA Negative mg/dL Ketones) [facility] AND [id number] 15:16:00 Test Item Value Reference Range Interpretation Comments UA Bili (test code = Negative *NA*(10/13/17 UA Bili) 10:16 AM) [facility] AND [id number] 15:16:00 Test Item Value Reference Range Interpretation Comments UA Glucose (test code = UA Negative mg/dL Glucose) [facility] AND [id number] 15:16:00 Test Item Value Reference Range Interpretation Comments UA Color (test code = Yellow *NA*(10/13/17 UA Color) 10:16 AM) [facility] AND [id number] 15:16:00 Test Item Value Reference Range Interpretation Comments UA Turbidity (test code Slight *ABN*(10/13/17 = UA Turbidity) 10:16 AM) [facility] AND [id number] 15:16:00 Test Item Value Reference Range Interpretation Comments UA Protein (test code = UA Negative mg/dL Protein) [facility]2018-07-21 15:16:00 Test Item Value Reference Range Interpretation Comments eGFR (test code = eGFR) 101 [facility]2018-07-21 15:16:00 Test Item Value Reference Range Interpretation Comments Bili Total (test code = Bili Total) 0.4 0.2-1.3 [facility]2018-07-21 15:16:00 Test Item Value Reference Range Interpretation Comments Alk Phos (test code = Alk Phos) 83 39-136 [facility]2018-07-21 15:16:00 Test Item Value Reference Range Interpretation Comments AST (test code = AST) 14 See_Comment [Auto mated message] The system which ge nerated this result transmit kuldip reference range : <=37. The reference range was not used to interpr et this result as abiodun l/abnormal. [facility]2018-07-21 15:16:00 Test Item Value Reference Range Interpretation Comments ALT (test code = ALT) 22 See_Comment [Auto mated message] The system which ge nerated this result transmit kuldip reference range : <=65. The reference range was not used to interpr et this result as abiodun l/abnormal. [facility]2018-07-21 15:16:00 Test Item Value Reference Range Interpretation Comments Glucose Lvl (test code = Glucose Lvl) 125 70-99 [facility]2018-07-21 15:16:00 Test Item Value Reference Range Interpretation Comments A/G Ratio (test code = A/G Ratio) 0.8 1 0.7-1.6 [facility]2018-07-21 15:16:00 Test Item Value Reference Range Interpretation Comments Globulin (test code = Globulin) 4.5 2.7-4.2 [facility]2018-07-21 15:16:00 Test Item Value Reference Range Interpretation Comments B/C Ratio (test code = B/C Ratio) 8 1 6-25 [facility]2018-07-21 15:16:00 Test Item Value Reference Range Interpretation Comments Calcium Lvl (test code = Calcium Lvl) 10.2 8.5-10.5 [facility]2018-07-21 15:16:00 Test Item Value Reference Range Interpretation Comments Total Protein (test code = Total 7.9 6.4-8.4 Protein) [facility]2018-07-21 15:16:00 Test Item Value Reference Range Interpretation Comments Albumin Lvl (test code = Albumin Lvl) 3.4 3.5-5.0 [facility]2018-07-21 15:16:00 Test Item Value Reference Range Interpretation Comments Chloride Lvl (test code = Chloride Lvl) 102 95-109 [facility]2018-07-21 15:16:00 Test Item Value Reference Range Interpretation Comments CO2 (test code = CO2) 30 24-32 [facility]2018-07-21 15:16:00 Test Item Value Reference Range Interpretation Comments AGAP (test code = AGAP) 10.8 10.0-20.0 [facility]2018-07-21 15:16:00 Test Item Value Reference Range Interpretation Comments BUN (test code = BUN) 7 7-22 [facility]2018-07-21 15:16:00 Test Item Value Reference Range Interpretation Comments Sodium Lvl (test code = Sodium Lvl) 139 135-145 [facility]2018-07-21 15:16:00 Test Item Value Reference Range Interpretation Comments Potassium Lvl (test code = Potassium 3.8 3.5-5.1 Lvl) [place] 222468-07-21 15:16:00 Test Item Value Reference Range Interpretation Comments Creatinine Lvl (test code = Creatinine 0.83 0.50-1.40 Lvl) [facility]2018-07-21 15:16:00 Test Item Value Reference Range Interpretation Comments Lipase Lvl (test code = Lipase Lvl) 204 73-393 [place] 387508-07-21 15:16:00 Test Item Value Reference Range Interpretation Comments S Preg (test code = S Negative *NA*(10/13/17 Preg) 10:16 AM) [facility] SystemMvkmqakDILSKYEFRV2031-57-96 15:16:00 Test Item Value Reference Range Interpretation Comments Monocytes (test code = Monocytes) 7.5 2.0-12.0 [facility] SystemEclpgeeBNJUZXHSIK5451-48-45 15:16:00 Test Item Value Reference Range Interpretation Comments Segs (test code = Segs) 64.6 45.0-75.0 [facility] SystemLhmhxtoWTRGSWNTPW2423-76-32 15:16:00 Test Item Value Reference Range Interpretation Comments Lymphocytes (test code = Lymphocytes) 26.4 20.0-40.0 [facility] SystemGechixoLEMLKJBFXR8056-38-35 15:16:00 Test Item Value Reference Range Interpretation Comments Neutrophils # (test code = Neutrophils 4.8 1.5-8.1 #) [facility] SystemCgfilqcNXXUJRJTHI3628-25-64 15:16:00 Test Item Value Reference Range Interpretation Comments Basophils (test code = 0.4 See_Comment [Aut omated message] The Basophils) system which ge nerated this result tra nsmitted reference range : <=1.0. The reference r nilam was not used to int erpret this result as normal/abnormal . [facility] SystemXvlrqwwCSYMBRTBPH0577-51-03 15:16:00 Test Item Value Reference Range Interpretation Comments Eosinophils (test code = 1.1 See_Comment [A utomated message] The Eosinophils) system which ge nerated this result tra nsmitted reference range : <=4.0. The reference r nilam was not used to int erpret this result as normal/abnormal . [facility] SystemGvcshtiJZJKMRDFNV1633-28-99 15:16:00 Test Item Value Reference Range Interpretation Comments Monocytes # (test code 0.6 See_Comment [Aut omated message] The = Monocytes #) system which generated this result tra nsmitted reference range : <=0.8. The reference r nilam was not used to int erpret this result as normal/abnormal . [facility] SystemVzzmcxpYWBONZFMZG3191-49-78 15:16:00 Test Item Value Reference Range Interpretation Comments Lymphocytes # (test code = Lymphocytes 2.0 1.0-5.5 #) [facility] SystemSyuupioOJCQTQEVDB3756-31-58 15:16:00 Test Item Value Reference Range Interpretation Comments Eosinophils # (test code 0.1 See_Comment [A utomated message] The = Eosinophils #) system whic h generated this result tra nsmitted reference range : <=0.5. The reference r nilam was not used to int erpret this result as normal/abnormal . [facility] SystemPmlcbtmDPFOSMUVLY4360-20-95 15:16:00 Test Item Value Reference Range Interpretation Comments RDW (test code = RDW) 13.4 11.5-14.5 [facility] SystemQzohwngQGDSQHRHVC1795-55-44 15:16:00 Test Item Value Reference Range Interpretation Comments MCH (test code = MCH) 30.7 pg 27.0-31.0 [facility] SystemAhmawzbYANKJUNCRZ5683-02-15 15:16:00 Test Item Value Reference Range Interpretation Comments Platelet (test code = Platelet) 204 133-450 [facility] SystemHqpkzinQMVMHKBCTB8680-17-30 15:16:00 Test Item Value Reference Range Interpretation Comments MCHC (test code = MCHC) 34.7 32.0-36.0 [facility] SystemPdqylfrZQJQFILLGT0265-89-90 15:16:00 Test Item Value Reference Range Interpretation Comments MCV (test code = MCV) 88.5 80.0-98.0 [facility] SystemTqiniulAKYWDCOBPH0827-22-69 15:16:00 Test Item Value Reference Range Interpretation Comments MPV (test code = MPV) 8.2 7.4-10.4 [id number] 15:16:00 Test Item Value Reference Range Interpretation Comments Hct (test code = Hct) 38.7 36.0-48.0 [facility] SystemLqfktikNWJIYUUCZP7308-89-48 15:16:00 Test Item Value Reference Range Interpretation Comments Hgb (test code = Hgb) 13.4 12.0-16.0 [facility] SystemBwlfbuaUAVGECLYRH1796-44-91 15:16:00 Test Item Value Reference Range Interpretation Comments RBC (test code = RBC) 4.37 4.20-5.40 [facility]WV[facility]FFLK3788[facility] 15:16:00 Test Item Value Reference Range Interpretation Comments WBC (test code = WBC) 7.4 3.7-10.4 [facility] AND [id number] 15:16:00 Test Item Value Reference Range Interpretation Comments UA Urobilinogen (test code = UA <=1.0 mg/dL 0.1-1.0 Urobilinogen) [facility] AND [id number] 15:16:00 Test Item Value Reference Range Interpretation Comments UA Mucus (test code = UA Mucus) Few /LPF [facility] AND [id number] 15:16:00 Test Item Value Reference Range Interpretation Comments UA CaOx Judy (test code = UA CaOx Many /HPF Judy) [facility] AND [id number] 15:16:00 Test Item Value Reference Range Interpretation Comments UA RBC (test code = 3 See_Comment [Automa kuldip message] The UA RBC) system which ge nerated this result transmit kuldip reference range : <=2. The reference range was not used to interpr et this result as abiodun l/abnormal. [facility] AND [id number] 15:16:00 Test Item Value Reference Range Interpretation Comments UA WBC (test code = 2 See_Comment [Automa kuldip message] The UA WBC) system which ge nerated this result transmit kuldip reference range : <=5. The reference range was not used to interpr et this result as abiodun l/abnormal. [facility] AND [id number] 15:16:00 Test Item Value Reference Range Interpretation Comments UA Leuk Est (test Negative (10/13/17 10:16 code = UA Leuk Est) AM) [facility] AND [id number] 15:16:00 Test Item Value Reference Range Interpretation Comments UA Sq Epi (test code = UA Sq Epi) Few /LPF [facility] AND [id number] 15:16:00 Test Item Value Reference Range Interpretation Comments UA Bacteria (test code = UA Occasional /HPF Bacteria) [facility] AND [id number] 15:16:00 Test Item Value Reference Range Interpretation Comments UA Blood (test code = Negative (10/13/17 10:16 UA Blood) AM) [facility] AND [id number] 15:16:00 Test Item Value Reference Range Interpretation Comments UA Nitrite (test code Negative (10/13/17 10:16 = UA Nitrite) AM) [facility] AND [id number] 15:16:00 Test Item Value Reference Range Interpretation Comments UA pH (test code = UA pH) 6.0 1 5.0-8.0 [facility] AND [id number] 15:16:00 Test Item Value Reference Range Interpretation Comments UA Spec Grav (test code = UA Spec 1.008 1 Grav) [facility] AND [id number] 15:16:00 Test Item Value Reference Range Interpretation Comments UA Ketones (test code = UA Negative mg/dL Ketones) [facility] AND [id number] 15:16:00 Test Item Value Reference Range Interpretation Comments UA Bili (test code = Negative *NA*(10/13/17 UA Bili) 10:16 AM) [facility] AND [id number] 15:16:00 Test Item Value Reference Range Interpretation Comments UA Glucose (test code = UA Negative mg/dL Glucose) [facility] AND [id number] 15:16:00 Test Item Value Reference Range Interpretation Comments UA Color (test code = Yellow *NA*(10/13/17 UA Color) 10:16 AM) [facility] AND [id number] 15:16:00 Test Item Value Reference Range Interpretation Comments UA Turbidity (test code Slight *ABN*(10/13/17 = UA Turbidity) 10:16 AM) [facility] AND [id number] 15:16:00 Test Item Value Reference Range Interpretation Comments UA Protein (test code = UA Negative mg/dL Protein) [place] [id number] 13:00:00 Test Item Value Reference Range Interpretation Comments S Preg (test code = S Negative *NA*(05/01/16 Preg) 7:00 AM) [place] [id number] 13:00:00 Test Item Value Reference Range Interpretation Comments S Preg (test code = S Negative *NA*(05/01/16 Preg) 7:00 AM) [id number] 13:00:00 Test Item Value Reference Range Interpretation Comments S Preg (test code = S Negative *NA*(05/01/16 Preg) 7:00 AM) [facility]YxruowvXGQWHJMWEHGZD4930-75-46 13:00:00 Test Item Value Reference Range Interpretation Comments S Preg (test code = S Negative *NA*(05/01/16 Preg) 7:00 AM) [facility] [employer] [id number] 16:31:00 Test Item Value Reference Range Interpretation Comments ABO/Rh (test code = ABO/Rh) B POS [employer] [id number] 16:31:00 Test Item Value Reference Range Interpretation Comments Antibody Scrn (test Negative (04/24/16 code = Antibody Scrn) 10:31 AM) [facility] [employer] [id number] 16:31:00 Test Item Value Reference Range Interpretation Comments ABO/Rh (test code = ABO/Rh) B POS [facility] [employer] [id number] 16:31:00 Test Item Value Reference Range Interpretation Comments Antibody Scrn (test Negative (04/24/16 code = Antibody Scrn) 10:31 AM) [facility] [employer] [id number] 16:31:00 Test Item Value Reference Range Interpretation Comments ABO/Rh (test code = ABO/Rh) B POS [facility] [employer] [id number] 16:31:00 Test Item Value Reference Range Interpretation Comments Antibody Scrn (test Negative (04/24/16 code = Antibody Scrn) 10:31 AM) [facility] [employer] [id number] 16:31:00 Test Item Value Reference Range Interpretation Comments ABO/Rh (test code = ABO/Rh) B POS [employer] [id number] 16:31:00 Test Item Value Reference Range Interpretation Comments Antibody Scrn (test Negative (04/24/16 code = Antibody Scrn) 10:31 AM) [facility] [id number] 16:30:00 Test Item Value Reference Range Interpretation Comments Basophils # (test code 0.0 See_Comment [Aut omated message] The = Basophils #) system which generated this result tra nsmitted reference range : <=0.2. The reference r nilam was not used to int erpret this result as normal/abnormal . [facility] SystemCgyetziMFQAGBZGZV4244-94-14 16:30:00 Test Item Value Reference Range Interpretation Comments Monocytes # (test code 0.4 See_Comment [Aut omated message] The = Monocytes #) system which generated this result tra nsmitted reference range : <=0.8. The reference r nilam was not used to int erpret this result as normal/abnormal . [facility] SystemQtylozgNLMUKGJOCG2097-36-86 16:30:00 Test Item Value Reference Range Interpretation Comments Eosinophils # (test code 0.1 See_Comment [A utomated message] The = Eosinophils #) system whic h generated this result tra nsmitted reference range : <=0.5. The reference r nilam was not used to int erpret this result as normal/abnormal . [facility] SystemFadsyflZAHTERKZMC3325-16-07 16:30:00 Test Item Value Reference Range Interpretation Comments Segs-Bands # (test code = Segs-Bands #) 3.3 1.5-8.1 [facility] SystemNjkrqzmFGWWXGSDLS1900-26-92 16:30:00 Test Item Value Reference Range Interpretation Comments Lymphocytes # (test code = Lymphocytes 1.6 1.0-5.5 #) [facility] SystemRfvobfsIXPIAOKOXH4796-68-06 16:30:00 Test Item Value Reference Range Interpretation Comments Segs (test code = Segs) 60.9 45.0-75.0 [facility] Syst[id number] 16:30:00 Test Item Value Reference Range Interpretation Comments Basophils (test code = 0.5 See_Comment [Aut omated message] The Basophils) system which ge nerated this result tra nsmitted reference range : <=1.0. The reference r nilam was not used to int erpret this result as normal/abnormal . [facility] SystemNradjdhTEYPXKQVHA3382-15-72 16:30:00 Test Item Value Reference Range Interpretation Comments Eosinophils (test code = 1.8 See_Comment [A utomated message] The Eosinophils) system which ge nerated this result tra nsmitted reference range : <=4.0. The reference r nilam was not used to int erpret this result as normal/abnormal . [facility] SystemLqldjmwMCMSBOMCOS0047-10-14 16:30:00 Test Item Value Reference Range Interpretation Comments Lymphocytes (test code = Lymphocytes) 29.1 20.0-40.0 [facility] SystemWjfgyunRLTTXDRXKU7640-55-33 16:30:00 Test Item Value Reference Range Interpretation Comments Monocytes (test code = Monocytes) 7.7 2.0-12.0 [facility] SystemJpjygopJFHMVMKXBD7892-59-49 16:30:00 Test Item Value Reference Range Interpretation Comments MCH (test code = MCH) 28.5 pg 27.0-31.0 [facility] SystemIldtatrVGZYLZMZFK4984-38-68 16:30:00 Test Item Value Reference Range Interpretation Comments MCV (test code = MCV) 87.6 80.0-98.0 [facility] SystemXioduhuASCKCICBJC4918-55-02 16:30:00 Test Item Value Reference Range Interpretation Comments Hct (test code = Hct) 37.5 36.0-48.0 [facility] SystemXpliylmMKSDSWLFLV4442-20-14 16:30:00 Test Item Value Reference Range Interpretation Comments MCHC (test code = MCHC) 32.6 32.0-36.0 [facility] SystemNyjevltCBANHNIHRU1963-86-48 16:30:00 Test Item Value Reference Range Interpretation Comments Platelet (test code = Platelet) 263 133-450 [facility] SystemUfdkrzyMDTGEIWKCH1821-52-14 16:30:00 Test Item Value Reference Range Interpretation Comments RDW (test code = RDW) 15.8 11.5-14.5 [facility] SystemXmztlmpAEALEELNIC2105-88-53 16:30:00 Test Item Value Reference Range Interpretation Comments MPV (test code = MPV) 8.6 7.4-10.4 [facility] SystemFvhdeibFWXATPEJIO2232-74-43 16:30:00 Test Item Value Reference Range Interpretation Comments WBC (test code = WBC) 5.4 3.7-10.4 [facility] SystemHfvpzqhLICAXGWFXA2843-53-66 16:30:00 Test Item Value Reference Range Interpretation Comments Hgb (test code = Hgb) 12.2 12.0-16.0 [facility] SystemElnahooILZFBKXFTW9347-19-19 16:30:00 Test Item Value Reference Range Interpretation Comments RBC (test code = RBC) 4.29 4.20-5.40 [facility] SystemVcyaeuwPHKSTHNSCZ3288-92-76 16:30:00 Test Item Value Reference Range Interpretation Comments Basophils # (test code 0.0 See_Comment [Aut omated message] The = Basophils #) system which generated this result tra nsmitted reference range : <=0.2. The reference r nilam was not used to int erpret this result as normal/abnormal . [facility] SystemHmbfwwcTHHSFKKLCQ3316-93-05 16:30:00 Test Item Value Reference Range Interpretation Comments Monocytes # (test code 0.4 See_Comment [Aut omated message] The = Monocytes #) system which generated this result tra nsmitted reference range : <=0.8. The reference r nilam was not used to int erpret this result as normal/abnormal . [facility] SystemQeoelhtWORCPISLSQ4162-30-16 16:30:00 Test Item Value Reference Range Interpretation Comments Eosinophils # (test code 0.1 See_Comment [A utomated message] The = Eosinophils #) system whic h generated this result tra nsmitted reference range : <=0.5. The reference r nilam was not used to int erpret this result as normal/abnormal . [facility] SystemIdvqrvhEFNCVLNXJV3480-18-71 16:30:00 Test Item Value Reference Range Interpretation Comments Segs-Bands # (test code = Segs-Bands #) 3.3 1.5-8.1 [facility] SystemWcszevnEXUEQABWKP6004-83-75 16:30:00 Test Item Value Reference Range Interpretation Comments Lymphocytes # (test code = Lymphocytes 1.6 1.0-5.5 #) [facility] SystemGtvqyqpDPKTHLTGWY8053-68-07 16:30:00 Test Item Value Reference Range Interpretation Comments Segs (test code = Segs) 60.9 45.0-75.0 [facility] SystemKkregrmBWFOKQFGTY5237-21-00 16:30:00 Test Item Value Reference Range Interpretation Comments Basophils (test code = 0.5 See_Comment [Aut omated message] The Basophils) system which ge nerated this result tra nsmitted reference range : <=1.0. The reference r nilam was not used to int erpret this result as normal/abnormal . [facility] SystemCgybojtYFOPVIXFWT0377-65-44 16:30:00 Test Item Value Reference Range Interpretation Comments Eosinophils (test code = 1.8 See_Comment [A utomated message] The Eosinophils) system which ge nerated this result tra nsmitted reference range : <=4.0. The reference r nilam was not used to int erpret this result as normal/abnormal . [facility] SystemSpuohrvIFOGIIBKFE8098-87-18 16:30:00 Test Item Value Reference Range Interpretation Comments Lymphocytes (test code = Lymphocytes) 29.1 20.0-40.0 [facility] SystemLoscemzCOSOOJGAVW2173-40-61 16:30:00 Test Item Value Reference Range Interpretation Comments Monocytes (test code = Monocytes) 7.7 2.0-12.0 [facility] SystemEqveryyNVRGUYKIMU6562-53-44 16:30:00 Test Item Value Reference Range Interpretation Comments MCH (test code = MCH) 28.5 pg 27.0-31.0 [facility] SystemUkuorouQYKJFVQMTE0546-71-48 16:30:00 Test Item Value Reference Range Interpretation Comments MCV (test code = MCV) 87.6 80.0-98.0 [facility] SystemYqdebbaKWHHHDOFJF7429-72-71 16:30:00 Test Item Value Reference Range Interpretation Comments Hct (test code = Hct) 37.5 36.0-48.0 [facility] SystemItfywtdAHCIJJSDVU6570-70-85 16:30:00 Test Item Value Reference Range Interpretation Comments MCHC (test code = MCHC) 32.6 32.0-36.0 [facility] SystemErcchxjYIBJWUMHVI2541-08-84 16:30:00 Test Item Value Reference Range Interpretation Comments Platelet (test code = Platelet) 263 133-450 [facility] SystemSzgbmhlJUBXIXLPKI4525-17-08 16:30:00 Test Item Value Reference Range Interpretation Comments RDW (test code = RDW) 15.8 11.5-14.5 [facility] SystemMfpqclaNMSFRNYTJN7088-64-55 16:30:00 Test Item Value Reference Range Interpretation Comments MPV (test code = MPV) 8.6 7.4-10.4 [facility] SystemFztmsueBHEKZUZJUM0228-49-82 16:30:00 Test Item Value Reference Range Interpretation Comments WBC (test code = WBC) 5.4 3.7-10.4 [facility] SystemGgxlequZGPXZPAMQX8796-46-43 16:30:00 Test Item Value Reference Range Interpretation Comments Hgb (test code = Hgb) 12.2 12.0-16.0 [facility] SystemSdscrmnSVHUZMAUPI9731-26-84 16:30:00 Test Item Value Reference Range Interpretation Comments RBC (test code = RBC) 4.29 4.20-5.40 [facility] SystemMkzrdkdDASTPPREPB6569-88-52 16:30:00 Test Item Value Reference Range Interpretation Comments Basophils # (test code 0.0 See_Comment [Aut omated message] The = Basophils #) system which generated this result tra nsmitted reference range : <=0.2. The reference r nilam was not used to int erpret this result as normal/abnormal . [facility] SystemAkzttlvFBFRFJUHRZ2036-99-26 16:30:00 Test Item Value Reference Range Interpretation Comments Monocytes # (test code 0.4 See_Comment [Aut omated message] The = Monocytes #) system which generated this result tra nsmitted reference range : <=0.8. The reference r nilam was not used to int erpret this result as normal/abnormal . [facility] SystemQmvqmylCUOJYHKPVD8938-63-22 16:30:00 Test Item Value Reference Range Interpretation Comments Eosinophils # (test code 0.1 See_Comment [A utomated message] The = Eosinophils #) system whic h generated this result tra nsmitted reference range : <=0.5. The reference r nilam was not used to int erpret this result as normal/abnormal . [facility] SystemFsebacrVPBBQYVKDF6651-61-03 16:30:00 Test Item Value Reference Range Interpretation Comments Segs-Bands # (test code = Segs-Bands #) 3.3 1.5-8.1 [facility] SystemMvmaddcKFCYCUPAPK8288-24-26 16:30:00 Test Item Value Reference Range Interpretation Comments Lymphocytes # (test code = Lymphocytes 1.6 1.0-5.5 #) [facility] SystemJcefcoiURDVMQNKCX5876-40-04 16:30:00 Test Item Value Reference Range Interpretation Comments Segs (test code = Segs) 60.9 45.0-75.0 [facility] SystemBiaywdiSDCLYJNLFF4100-11-62 16:30:00 Test Item Value Reference Range Interpretation Comments Basophils (test code = 0.5 See_Comment [Aut omated message] The Basophils) system which ge nerated this result tra nsmitted reference range : <=1.0. The reference r nilam was not used to int erpret this result as normal/abnormal . [facility] SystemCzhkrdnKFHMHXNAHY7736-56-72 16:30:00 Test Item Value Reference Range Interpretation Comments Eosinophils (test code = 1.8 See_Comment [A utomated message] The Eosinophils) system which ge nerated this result tra nsmitted reference range : <=4.0. The reference r nilam was not used to int erpret this result as normal/abnormal . [facility] SystemZjxbxaaVMJZJOVEJG4468-63-91 16:30:00 Test Item Value Reference Range Interpretation Comments Lymphocytes (test code = Lymphocytes) 29.1 20.0-40.0 [facility] SystemTxfdjabHCTBNGAUHX7830-13-12 16:30:00 Test Item Value Reference Range Interpretation Comments Monocytes (test code = Monocytes) 7.7 2.0-12.0 [facility] SystemYtnaskoRULEBTEBXB0135-34-39 16:30:00 Test Item Value Reference Range Interpretation Comments MCH (test code = MCH) 28.5 pg 27.0-31.0 [facility] SystemQstscgcVXAGASHFYW9920-22-18 16:30:00 Test Item Value Reference Range Interpretation Comments MCV (test code = MCV) 87.6 80.0-98.0 [facility] SystemEytotruSOPUVNDXTM9431-12-36 16:30:00 Test Item Value Reference Range Interpretation Comments Hct (test code = Hct) 37.5 36.0-48.0 [facility] SystemThyyumlKNFDNWFWGA8151-88-29 16:30:00 Test Item Value Reference Range Interpretation Comments MCHC (test code = MCHC) 32.6 32.0-36.0 [facility] SystemAyppotbKQLCUIWMSS9143-57-43 16:30:00 Test Item Value Reference Range Interpretation Comments Platelet (test code = Platelet) 263 133-450 [facility] SystemVnbtxujWXNHYKOPAG6259-36-01 16:30:00 Test Item Value Reference Range Interpretation Comments RDW (test code = RDW) 15.8 11.5-14.5 [facility] SystemXlaaxczDCCQJBAMWR0120-97-95 16:30:00 Test Item Value Reference Range Interpretation Comments MPV (test code = MPV) 8.6 7.4-10.4 [facility] SystemRidofxqETFDVIGCNK7445-23-09 16:30:00 Test Item Value Reference Range Interpretation Comments WBC (test code = WBC) 5.4 3.7-10.4 [facility] SystemDuubbtmTHZESQKOXN6386-36-17 16:30:00 Test Item Value Reference Range Interpretation Comments Hgb (test code = Hgb) 12.2 12.0-16.0 [facility] SystemFxppeekEUZVJMSITR1315-23-03 16:30:00 Test Item Value Reference Range Interpretation Comments RBC (test code = RBC) 4.29 4.20-5.40 [facility] SystemAarlwpgDEAWHOXMHV7705-08-40 16:30:00 Test Item Value Reference Range Interpretation Comments Basophils # (test code 0.0 See_Comment [Aut omated message] The = Basophils #) system which generated this result tra nsmitted reference range : <=0.2. The reference r nilam was not used to int erpret this result as normal/abnormal . [facility] SystemQmbhvmpBPTNTRGZRO9487-02-47 16:30:00 Test Item Value Reference Range Interpretation Comments Monocytes # (test code 0.4 See_Comment [Aut omated message] The = Monocytes #) system which generated this result tra nsmitted reference range : <=0.8. The reference r nilam was not used to int erpret this result as normal/abnormal . [facility] SystemWsdlvlwBTUENQQFOL2004-93-99 16:30:00 Test Item Value Reference Range Interpretation Comments Eosinophils # (test code 0.1 See_Comment [A utomated message] The = Eosinophils #) system whic h generated this result tra nsmitted reference range : <=0.5. The reference r nilam was not used to int erpret this result as normal/abnormal . [facility] SystemFkhwlwgQRQSWHSJFA5353-62-19 16:30:00 Test Item Value Reference Range Interpretation Comments Segs-Bands # (test code = Segs-Bands #) 3.3 1.5-8.1 [facility] SystemBhfwgboAHCBOUXMGO1014-14-50 16:30:00 Test Item Value Reference Range Interpretation Comments Lymphocytes # (test code = Lymphocytes 1.6 1.0-5.5 #) [facility] SystemXmzvdpwMAUJJPEOXB3180-90-11 16:30:00 Test Item Value Reference Range Interpretation Comments Segs (test code = Segs) 60.9 45.0-75.0 [facility] SystemTwlzilmMOPMINKHYJ0941-46-42 16:30:00 Test Item Value Reference Range Interpretation Comments Basophils (test code = 0.5 See_Comment [Aut omated message] The Basophils) system which ge nerated this result tra nsmitted reference range : <=1.0. The reference r nilam was not used to int erpret this result as normal/abnormal . [facility] SystemNcnkbjxQIIHXVEGMT3701-90-12 16:30:00 Test Item Value Reference Range Interpretation Comments Eosinophils (test code = 1.8 See_Comment [A utomated message] The Eosinophils) system which ge nerated this result tra nsmitted reference range : <=4.0. The reference r nilam was not used to int erpret this result as normal/abnormal . [facility] SystemSapmmvyWZGXEQYPYU2651-68-70 16:30:00 Test Item Value Reference Range Interpretation Comments Lymphocytes (test code = Lymphocytes) 29.1 20.0-40.0 [facility] SystemDvvglnfXLXMHSBTHH2007-03-73 16:30:00 Test Item Value Reference Range Interpretation Comments Monocytes (test code = Monocytes) 7.7 2.0-12.0 [facility] SystemHkbsyckHGQFPQCHRL0095-34-85 16:30:00 Test Item Value Reference Range Interpretation Comments MCH (test code = MCH) 28.5 pg 27.0-31.0 [facility] SystemDaajzmzDGHEUFDTQG7297-89-73 16:30:00 Test Item Value Reference Range Interpretation Comments MCV (test code = MCV) 87.6 80.0-98.0 [facility] SystemCwmdffaFFAWUECPOB2930-07-16 16:30:00 Test Item Value Reference Range Interpretation Comments Hct (test code = Hct) 37.5 36.0-48.0 [facility] SystemRtrggwkXUAHPXVFFQ7276-61-04 16:30:00 Test Item Value Reference Range Interpretation Comments MCHC (test code = MCHC) 32.6 32.0-36.0 [facility] SystemIcrycjuMAQHWLWHJC5102-89-26 16:30:00 Test Item Value Reference Range Interpretation Comments Platelet (test code = Platelet) 263 133-450 [facility] SystemCkzgvdxICYDVVZSEJ2243-94-68 16:30:00 Test Item Value Reference Range Interpretation Comments RDW (test code = RDW) 15.8 11.5-14.5 [facility] SystemXgrlkesWMFZIFSOSE8363-48-84 16:30:00 Test Item Value Reference Range Interpretation Comments MPV (test code = MPV) 8.6 7.4-10.4 [facility] SystemWulbkstBOXTVAVUHG4625-73-71 16:30:00 Test Item Value Reference Range Interpretation Comments WBC (test code = WBC) 5.4 3.7-10.4 [facility] SystemBnvoulmWFYYVTBKLM2205-62-90 16:30:00 Test Item Value Reference Range Interpretation Comments Hgb (test code = Hgb) 12.2 12.0-16.0 [facility]pjozrOJHCRAGLVJ0092-96-78 16:30:00 Test Item Value Reference Range Interpretation Comments RBC (test code = RBC) 4.29 4.20-5.40 [facility] AND [id number] 23:03:00 Test Item Value Reference Range Interpretation Comments UA Color (test code = Yellow *NA*(03/17/16 UA Color) 5:03 PM) [facility] AND [id number] 23:03:00 Test Item Value Reference Range Interpretation Comments UA Turbidity (test code Cloudy *ABN*(03/17/16 = UA Turbidity) 5:03 PM) [facility] AND [id number] 23:03:00 Test Item Value Reference Range Interpretation Comments UA Ketones (test code Negative *NA*(03/17/16 = UA Ketones) 5:03 PM) [facility] AND [id number] 23:03:00 Test Item Value Reference Range Interpretation Comments UA Glucose (test code Negative (03/17/16 5:03 = UA Glucose) PM) [facility] AND [id number] 23:03:00 Test Item Value Reference Range Interpretation Comments UA Spec Grav (test code = UA Spec 1.025 1 Grav) [facility] AND [id number] 23:03:00 Test Item Value Reference Range Interpretation Comments UA pH (test code = UA pH) 6.0 1 5.0-8.0 [facility] AND [id number] 23:03:00 Test Item Value Reference Range Interpretation Comments UA Protein (test code = UA Protein) 30 mg/dL [facility] AND [id number] 23:03:00 Test Item Value Reference Range Interpretation Comments UA Nitrite (test code Negative (03/17/16 5:03 = UA Nitrite) PM) [facility] AND [id number] 23:03:00 Test Item Value Reference Range Interpretation Comments UA Bili (test code = Negative *NA*(03/17/16 UA Bili) 5:03 PM) [facility] AND [id number] 23:03:00 Test Item Value Reference Range Interpretation Comments UA Blood (test code = Moderate *ABN*(03/17/16 UA Blood) 5:03 PM) [facility] [id number] 23:03:00 Test Item Value Reference Range Interpretation Comments UA Urobilinogen (test code = UA 4.0 0.1-1.0 Urobilinogen) [facility] [id number] 23:03:00 Test Item Value Reference Range Interpretation Comments UA Leuk Est (test Moderate *ABN*(03/17/16 code = UA Leuk Est) 5:03 PM) [facility] AND [id number] 23:03:00 Test Item Value Reference Range Interpretation Comments UA Sq Epi (test code = UA Sq Occasional /LPF Epi) [facility] AND [id number] 23:03:00 Test Item Value Reference Range Interpretation Comments UA RBC (test code = 3-5 /HPF See_Comment [Automa kuldip message] The UA RBC) system which ge nerated this result tra nsmitted reference range : <=2. The reference range was not used to interpr et this result as abiodun l/abnormal. [facility] AND [id number] 23:03:00 Test Item Value Reference Range Interpretation Comments UA Bacteria (test code = UA Many /HPF Bacteria) [facility] AND [id number] 23:03:00 Test Item Value Reference Range Interpretation Comments UA WBC (test code = UA WBC) 11-20 /HPF [facility] AND [id number] 23:03:00 Test Item Value Reference Range Interpretation Comments UA Color (test code = Yellow *NA*(03/17/16 UA Color) 5:03 PM) [facility] AND [id number] 23:03:00 Test Item Value Reference Range Interpretation Comments UA Turbidity (test code Cloudy *ABN*(03/17/16 = UA Turbidity) 5:03 PM) [facility] AND [id number] 23:03:00 Test Item Value Reference Range Interpretation Comments UA Ketones (test code Negative *NA*(03/17/16 = UA Ketones) 5:03 PM) [facility] AND [id number] 23:03:00 Test Item Value Reference Range Interpretation Comments UA Glucose (test code Negative (03/17/16 5:03 = UA Glucose) PM) [facility] AND [id number] 23:03:00 Test Item Value Reference Range Interpretation Comments UA Spec Grav (test code = UA Spec 1.025 1 Grav) [facility] AND [id number] 23:03:00 Test Item Value Reference Range Interpretation Comments UA pH (test code = UA pH) 6.0 1 5.0-8.0 [facility] AND [id number] 23:03:00 Test Item Value Reference Range Interpretation Comments UA Protein (test code = UA Protein) 30 mg/dL [facility] AND [id number] 23:03:00 Test Item Value Reference Range Interpretation Comments UA Nitrite (test code Negative (03/17/16 5:03 = UA Nitrite) PM) [facility] AND [id number] 23:03:00 Test Item Value Reference Range Interpretation Comments UA Bili (test code = Negative *NA*(03/17/16 UA Bili) 5:03 PM) [facility] AND [id number] 23:03:00 Test Item Value Reference Range Interpretation Comments UA Blood (test code = Moderate *ABN*(03/17/16 UA Blood) 5:03 PM) [facility] AND [id number] 23:03:00 Test Item Value Reference Range Interpretation Comments UA Urobilinogen (test code = UA 4.0 0.1-1.0 Urobilinogen) [facility] AND [id number] 23:03:00 Test Item Value Reference Range Interpretation Comments UA Leuk Est (test Moderate *ABN*(03/17/16 code = UA Leuk Est) 5:03 PM) [facility] AND [id number] 23:03:00 Test Item Value Reference Range Interpretation Comments UA Sq Epi (test code = UA Sq Occasional /LPF Epi) [facility] AND [id number] 23:03:00 Test Item Value Reference Range Interpretation Comments UA RBC (test code = 3-5 /HPF See_Comment [Automa kuldip message] The UA RBC) system which ge nerated this result tra nsmitted reference range : <=2. The reference range was not used to interpr et this result as abiodun l/abnormal. [facility] AND [id number] 23:03:00 Test Item Value Reference Range Interpretation Comments UA Bacteria (test code = UA Many /HPF Bacteria) [facility] AND [id number] 23:03:00 Test Item Value Reference Range Interpretation Comments UA WBC (test code = UA WBC) 11-20 /HPF [facility] AND [id number] 23:03:00 Test Item Value Reference Range Interpretation Comments UA Color (test code = Yellow *NA*(03/17/16 UA Color) 5:03 PM) [facility] AND [id number] 23:03:00 Test Item Value Reference Range Interpretation Comments UA Turbidity (test code Cloudy *ABN*(03/17/16 = UA Turbidity) 5:03 PM) [facility] AND [id number] 23:03:00 Test Item Value Reference Range Interpretation Comments UA Ketones (test code Negative *NA*(03/17/16 = UA Ketones) 5:03 PM) [facility] AND [id number] 23:03:00 Test Item Value Reference Range Interpretation Comments UA Glucose (test code Negative (03/17/16 5:03 = UA Glucose) PM) [facility] AND [id number] 23:03:00 Test Item Value Reference Range Interpretation Comments UA Spec Grav (test code = UA Spec 1.025 1 Grav) [facility] AND [id number] 23:03:00 Test Item Value Reference Range Interpretation Comments UA pH (test code = UA pH) 6.0 1 5.0-8.0 [facility] AND [id number] 23:03:00 Test Item Value Reference Range Interpretation Comments UA Protein (test code = UA Protein) 30 mg/dL [facility] AND [id number] 23:03:00 Test Item Value Reference Range Interpretation Comments UA Nitrite (test code Negative (03/17/16 5:03 = UA Nitrite) PM) [facility] AND [id number] 23:03:00 Test Item Value Reference Range Interpretation Comments UA Bili (test code = Negative *NA*(03/17/16 UA Bili) 5:03 PM) [facility] AND [id number] 23:03:00 Test Item Value Reference Range Interpretation Comments UA Blood (test code = Moderate *ABN*(03/17/16 UA Blood) 5:03 PM) [facility] AND [id number] 23:03:00 Test Item Value Reference Range Interpretation Comments UA Urobilinogen (test code = UA 4.0 0.1-1.0 Urobilinogen) [facility] AND [id number] 23:03:00 Test Item Value Reference Range Interpretation Comments UA Leuk Est (test Moderate *ABN*(03/17/16 code = UA Leuk Est) 5:03 PM) [facility] AND [id number] 23:03:00 Test Item Value Reference Range Interpretation Comments UA Sq Epi (test code = UA Sq Occasional /LPF Epi) [facility] AND [id number] 23:03:00 Test Item Value Reference Range Interpretation Comments UA RBC (test code = 3-5 /HPF See_Comment [Automa kuldip message] The UA RBC) system which ge nerated this result tra nsmitted reference range : <=2. The reference range was not used to interpr et this result as abiodun l/abnormal. [facility] AND [id number] 23:03:00 Test Item Value Reference Range Interpretation Comments UA Bacteria (test code = UA Many /HPF Bacteria) [facility] AND [id number] 23:03:00 Test Item Value Reference Range Interpretation Comments UA WBC (test code = UA WBC) 11-20 /HPF [facility] AND [id number] 23:03:00 Test Item Value Reference Range Interpretation Comments UA Color (test code = Yellow *NA*(03/17/16 UA Color) 5:03 PM) [facility] AND [id number] 23:03:00 Test Item Value Reference Range Interpretation Comments UA Turbidity (test code Cloudy *ABN*(03/17/16 = UA Turbidity) 5:03 PM) [facility] AND [id number] 23:03:00 Test Item Value Reference Range Interpretation Comments UA Ketones (test code Negative *NA*(03/17/16 = UA Ketones) 5:03 PM) [facility] AND [id number] 23:03:00 Test Item Value Reference Range Interpretation Comments UA Glucose (test code Negative (03/17/16 5:03 = UA Glucose) PM) [facility] [id number] 23:03:00 Test Item Value Reference Range Interpretation Comments UA Spec Grav (test code = UA Spec 1.025 1 Grav) [facility] AND [id number] 23:03:00 Test Item Value Reference Range Interpretation Comments UA pH (test code = UA pH) 6.0 1 5.0-8.0 [facility] AND [id number] 23:03:00 Test Item Value Reference Range Interpretation Comments UA Protein (test code = UA Protein) 30 mg/dL [facility] AND [id number] 23:03:00 Test Item Value Reference Range Interpretation Comments UA Nitrite (test code Negative (03/17/16 5:03 = UA Nitrite) PM) [facility] AND [id number] 23:03:00 Test Item Value Reference Range Interpretation Comments UA Bili (test code = Negative *NA*(03/17/16 UA Bili) 5:03 PM) [facility] AND [id number] 23:03:00 Test Item Value Reference Range Interpretation Comments UA Blood (test code = Moderate *ABN*(03/17/16 UA Blood) 5:03 PM) [facility] AND [id number] 23:03:00 Test Item Value Reference Range Interpretation Comments UA Urobilinogen (test code = UA 4.0 0.1-1.0 Urobilinogen) [facility] AND [id number] 23:03:00 Test Item Value Reference Range Interpretation Comments UA Leuk Est (test Moderate *ABN*(03/17/16 code = UA Leuk Est) 5:03 PM) [facility] AND [id number] 23:03:00 Test Item Value Reference Range Interpretation Comments UA Sq Epi (test code = UA Sq Occasional /LPF Epi) [facility] AND [id number] 23:03:00 Test Item Value Reference Range Interpretation Comments UA RBC (test code = 3-5 /HPF See_Comment [Automa kuldip message] The UA RBC) system which ge nerated this result tra nsmitted reference range : <=2. The reference range was not used to interpr et this result as abiodun l/abnormal. [facility] AND [id number] 23:03:00 Test Item Value Reference Range Interpretation Comments UA Bacteria (test code = UA Many /HPF Bacteria) [facility] AND [id number] 23:03:00 Test Item Value Reference Range Interpretation Comments UA WBC (test code = UA WBC) 11-20 /HPF [facility] [id number] 22:42:00 Test Item Value Reference Range Interpretation Comments Lipase Lvl (test code = Lipase Lvl) 193 73-393 [facility]2016-12-23 22:42:00 Test Item Value Reference Range Interpretation Comments A/G Ratio (test code = A/G Ratio) 0.5 0.7-1.6 [facility]2016-12-23 22:42:00 Test Item Value Reference Range Interpretation Comments AGAP (test code = AGAP) 11.4 10.0-20.0 [facility]2016-12-23 22:42:00 Test Item Value Reference Range Interpretation Comments Globulin (test code = Globulin) 5.5 2.7-4.2 [facility]2016-12-23 22:42:00 Test Item Value Reference Range Interpretation Comments B/C Ratio (test code = B/C Ratio) 7 6-25 [facility]2016-12-23 22:42:00 Test Item Value Reference Range Interpretation Comments eGFR (test code = eGFR) 100 [facility]2016-12-23 22:42:00 Test Item Value Reference Range Interpretation Comments ALANINE AMINOTRANSFERASE 65 See_Comment [A utomated message] (test code = ALANINE The sys tem which AMINOTRANSFERASE) generated this result transmitted ref erence range: <=65. Th e reference range was not used to int erpret this result as normal/abnormal . [facility]2016-12-23 22:42:00 Test Item Value Reference Range Interpretation Comments Potassium Lvl (test code = Potassium 3.4 3.5-5.1 Lvl) [facility]2016-12-23 22:42:00 Test Item Value Reference Range Interpretation Comments BUN (test code = BUN) 6 7-22 [facility]2016-12-23 22:42:00 Test Item Value Reference Range Interpretation Comments Sodium Lvl (test code = Sodium Lvl) 137 135-145 [facility]2016-12-23 22:42:00 Test Item Value Reference Range Interpretation Comments Creatinine Lvl (test code = Creatinine 0.85 0.50-1.40 Lvl) [facility]2016-12-23 22:42:00 Test Item Value Reference Range Interpretation Comments Bili Total (test code = Bili Total) 0.5 0.2-1.3 [facility]2016-12-23 22:42:00 Test Item Value Reference Range Interpretation Comments Chloride Lvl (test code = Chloride Lvl) 100 95-109 [facility]2016-12-23 22:42:00 Test Item Value Reference Range Interpretation Comments Calcium Lvl (test code = Calcium Lvl) 9.6 8.5-10.5 [facility]2016-12-23 22:42:00 Test Item Value Reference Range Interpretation Comments CO2 (test code = CO2) 29 24-32 [facility]2016-12-23 22:42:00 Test Item Value Reference Range Interpretation Comments ASPARTATE TRANSAMINASE 59 See_Comment [Aut omated message] (test code = ASPARTATE The s ystem which TRANSAMINASE) generated this result transmitted ref erence range: <=37. Th e reference range was not used to interpr et this result as normal/abnormal . [facility]2016-12-23 22:42:00 Test Item Value Reference Range Interpretation Comments Total Protein (test code = Total 8.5 6.4-8.4 Protein) [facility]2016-12-23 22:42:00 Test Item Value Reference Range Interpretation Comments Glucose Lvl (test code = Glucose Lvl) 106 70-99 [facility]2016-12-23 22:42:00 Test Item Value Reference Range Interpretation Comments Albumin Lvl (test code = Albumin Lvl) 3.0 3.5-5.0 [facility]2016-12-23 22:42:00 Test Item Value Reference Range Interpretation Comments Alk Phos (test code = Alk Phos) 83 39-136 [id number] 22:42:00 Test Item Value Reference Range Interpretation Comments S Preg (test code = S Negative *NA*(03/17/16 Preg) 4:42 PM) [facility]WCPPPBOBUU6540-15-29 22:42:00 Test Item Value Reference Range Interpretation Comments MPV (test code = MPV) 8.6 7.4-10.4 [id number] 22:42:00 Test Item Value Reference Range Interpretation Comments MCHC (test code = MCHC) 34.3 32.0-36.0 [facility] SystemVcdvvmqQCGZYAMVST5142-01-16 22:42:00 Test Item Value Reference Range Interpretation Comments Platelet (test code = Platelet) 133 133-450 [facility] Syst[id number] 22:42:00 Test Item Value Reference Range Interpretation Comments RDW (test code = RDW) 16.8 11.5-14.5 [facility] [id number] 22:42:00 Test Item Value Reference Range Interpretation Comments MCH (test code = MCH) 28.7 pg 27.0-31.0 [facility] SystemWvsxapuXGGPFSSCJI5331-78-00 22:42:00 Test Item Value Reference Range Interpretation Comments Hgb (test code = Hgb) 11.7 12.0-16.0 [facility] S[id number] 22:42:00 Test Item Value Reference Range Interpretation Comments Hct (test code = Hct) 34.1 36.0-48.0 [facility] SystemLsenvkdCPCSTOZOPN5076-07-40 22:42:00 Test Item Value Reference Range Interpretation Comments WBC X 10x3 (test code = WBC X 10x3) 7.6 3.7-10.4 [facility] SystemFbxvcgzKXWNMCJBPS8348-99-12 22:42:00 Test Item Value Reference Range Interpretation Comments MCV (test code = MCV) 83.6 80.0-98.0 [facility] SystemBvdyydgBGISJEXFKP1377-24-79 22:42:00 Test Item Value Reference Range Interpretation Comments RBC X 10x6 (test code = RBC X 10x6) 4.08 4.20-5.40 [facility] SystemNpfwbkvAIATPLUIHO8595-60-47 22:42:00 Test Item Value Reference Range Interpretation Comments Eosinophils (test code = 0.6 See_Comment [A utomated message] The Eosinophils) system which ge nerated this result tra nsmitted reference range : <=4.0. The reference r nilam was not used to int erpret this result as normal/abnormal . [facility] SystemEccynibWWKTMGFLQG1623-35-47 22:42:00 Test Item Value Reference Range Interpretation Comments Lymphocytes (test code = Lymphocytes) 16.1 20.0-40.0 [facility] SystemUymqhlnIKYWQDTEOY6630-99-66 22:42:00 Test Item Value Reference Range Interpretation Comments Monocytes (test code = Monocytes) 12.9 2.0-12.0 [facility] SystemHkumxkyRXHHNMHCKW8258-21-09 22:42:00 Test Item Value Reference Range Interpretation Comments Segs-Bands # (test code = Segs-Bands #) 5.3 1.5-8.1 [facility] SystemYetozdlUZHHQWJWVP4944-50-80 22:42:00 Test Item Value Reference Range Interpretation Comments Monocytes # (test code 1.0 See_Comment [Aut omated message] The = Monocytes #) system which generated this result tra nsmitted reference range : <=0.8. The reference r nilam was not used to int erpret this result as normal/abnormal . [facility] SystemXyyxxszJLDFLSNSVA7211-07-42 22:42:00 Test Item Value Reference Range Interpretation Comments Lymphocytes # (test code = Lymphocytes 1.2 1.0-5.5 #) [facility] Syst[id number] 22:42:00 Test Item Value Reference Range Interpretation Comments Basophils (test code = 0.2 See_Comment [Aut omated message] The Basophils) system which ge nerated this result tra nsmitted reference range : <=1.0. The reference r nilam was not used to int erpret this result as normal/abnormal . [facility] SystemGvfqvioVHKNRWREZH5778-44-41 22:42:00 Test Item Value Reference Range Interpretation Comments Segs (test code = Segs) 70.2 45.0-75.0 [facility] [id number] 22:42:00 Test Item Value Reference Range Interpretation Comments Influ B (test code = Negative (03/17/16 4:42 Influ B) PM) [facility] [id number] 22:42:00 Test Item Value Reference Range Interpretation Comments Influ A (test code = Negative (03/17/16 4:42 Influ A) PM) [facility]2016-12-23 22:42:00 Test Item Value Reference Range Interpretation Comments Lipase Lvl (test code = Lipase Lvl) 193 73-393 [facility]2016-12-23 22:42:00 Test Item Value Reference Range Interpretation Comments A/G Ratio (test code = A/G Ratio) 0.5 0.7-1.6 [facility]2016-12-23 22:42:00 Test Item Value Reference Range Interpretation Comments AGAP (test code = AGAP) 11.4 10.0-20.0 [facility]2016-12-23 22:42:00 Test Item Value Reference Range Interpretation Comments Globulin (test code = Globulin) 5.5 2.7-4.2 [facility]2016-12-23 22:42:00 Test Item Value Reference Range Interpretation Comments B/C Ratio (test code = B/C Ratio) 7 6-25 [facility]2016-12-23 22:42:00 Test Item Value Reference Range Interpretation Comments eGFR (test code = eGFR) 100 [facility]2016-12-23 22:42:00 Test Item Value Reference Range Interpretation Comments ALANINE AMINOTRANSFERASE 65 See_Comment [A utomated message] (test code = ALANINE The sys tem which AMINOTRANSFERASE) generated this result transmitted ref erence range: <=65. Th e reference range was not used to int erpret this result as normal/abnormal . [facility]2016-12-23 22:42:00 Test Item Value Reference Range Interpretation Comments Potassium Lvl (test code = Potassium 3.4 3.5-5.1 Lvl) [facility]2016-12-23 22:42:00 Test Item Value Reference Range Interpretation Comments BUN (test code = BUN) 6 7- [facility]2016-12-23 22:42:00 Test Item Value Reference Range Interpretation Comments Sodium Lvl (test code = Sodium Lvl) 137 135-145 [facility]2016-12-23 22:42:00 Test Item Value Reference Range Interpretation Comments Creatinine Lvl (test code = Creatinine 0.85 0.50-1.40 Lvl) [facility]2016-12-23 22:42:00 Test Item Value Reference Range Interpretation Comments Bili Total (test code = Bili Total) 0.5 0.2-1.3 [place] [id number] 22:42:00 Test Item Value Reference Range Interpretation Comments Chloride Lvl (test code = Chloride Lvl) 100 95-109 [facility]2016-12-23 22:42:00 Test Item Value Reference Range Interpretation Comments Calcium Lvl (test code = Calcium Lvl) 9.6 8.5-10.5 [facility]2016-12-23 22:42:00 Test Item Value Reference Range Interpretation Comments CO2 (test code = CO2) 29 24-32 [facility]2016-12-23 22:42:00 Test Item Value Reference Range Interpretation Comments ASPARTATE TRANSAMINASE 59 See_Comment [Aut omated message] (test code = ASPARTATE The s ystem which TRANSAMINASE) generated this result transmitted ref erence range: <=37. Th e reference range was not used to interpr et this result as normal/abnormal . [facility]2016-12-23 22:42:00 Test Item Value Reference Range Interpretation Comments Total Protein (test code = Total 8.5 6.4-8.4 Protein) [facility]2016-12-23 22:42:00 Test Item Value Reference Range Interpretation Comments Glucose Lvl (test code = Glucose Lvl) 106 70-99 [facility]2016-12-23 22:42:00 Test Item Value Reference Range Interpretation Comments Albumin Lvl (test code = Albumin Lvl) 3.0 3.5-5.0 [facility]2016-12-23 22:42:00 Test Item Value Reference Range Interpretation Comments Alk Phos (test code = Alk Phos) 83 39-136 [place] [id number] 22:42:00 Test Item Value Reference Range Interpretation Comments S Preg (test code = S Negative *NA*(03/17/16 Preg) 4:42 PM) [facility] SystemAskhevzAFSELANJJY8244-30-45 22:42:00 Test Item Value Reference Range Interpretation Comments MPV (test code = MPV) 8.6 7.4-10.4 [facility] SystemNxkdptxQKACFWVQLT9428-16-73 22:42:00 Test Item Value Reference Range Interpretation Comments MCHC (test code = MCHC) 34.3 32.0-36.0 [facility] SystemUtyeouyIJTPLMEPRF2965-91-38 22:42:00 Test Item Value Reference Range Interpretation Comments Platelet (test code = Platelet) 133 133-450 [facility] SystemJiiucwfEZUVNVBOKJ3600-79-78 22:42:00 Test Item Value Reference Range Interpretation Comments RDW (test code = RDW) 16.8 11.5-14.5 [facility] SystemRhmktmnGHYHDUWEXV7816-60-99 22:42:00 Test Item Value Reference Range Interpretation Comments MCH (test code = MCH) 28.7 pg 27.0-31.0 [facility] SystemCibwgstHDRCVZHCNR5324-40-84 22:42:00 Test Item Value Reference Range Interpretation Comments Hgb (test code = Hgb) 11.7 12.0-16.0 [facility] SystemPmnnsbxFQHQHCCGQX6858-83-92 22:42:00 Test Item Value Reference Range Interpretation Comments Hct (test code = Hct) 34.1 36.0-48.0 [facility] SystemQiicipqIFLSPZIOTO5598-49-17 22:42:00 Test Item Value Reference Range Interpretation Comments WBC X 10x3 (test code = WBC X 10x3) 7.6 3.7-10.4 [facility] SystemFhnluzeWVQMQSCKYZ5636-73-04 22:42:00 Test Item Value Reference Range Interpretation Comments MCV (test code = MCV) 83.6 80.0-98.0 [facility] SystemLcdowhpVYYLXQIGQC6624-25-83 22:42:00 Test Item Value Reference Range Interpretation Comments RBC X 10x6 (test code = RBC X 10x6) 4.08 4.20-5.40 [facility] SystemXjlgtojMDRPIUWEDY8866-27-40 22:42:00 Test Item Value Reference Range Interpretation Comments Eosinophils (test code = 0.6 See_Comment [A utomated message] The Eosinophils) system which ge nerated this result tra nsmitted reference range : <=4.0. The reference r nilam was not used to int erpret this result as normal/abnormal . [facility] SystemQsbqgaiXHGGFBFPWR8847-46-00 22:42:00 Test Item Value Reference Range Interpretation Comments Lymphocytes (test code = Lymphocytes) 16.1 20.0-40.0 [facility] SystemZsvwnfyLSXMYCOTCY9155-65-47 22:42:00 Test Item Value Reference Range Interpretation Comments Monocytes (test code = Monocytes) 12.9 2.0-12.0 [facility] SystemXgqnwrvOVCILLMLKI1507-85-11 22:42:00 Test Item Value Reference Range Interpretation Comments Segs-Bands # (test code = Segs-Bands #) 5.3 1.5-8.1 [facility] SystemIipplggVPSYEYZFMQ6523-55-24 22:42:00 Test Item Value Reference Range Interpretation Comments Monocytes # (test code 1.0 See_Comment [Aut omated message] The = Monocytes #) system which generated this result tra nsmitted reference range : <=0.8. The reference r nilam was not used to int erpret this result as normal/abnormal . [facility] SystemOdxozhiAWREWYNIHM3744-62-62 22:42:00 Test Item Value Reference Range Interpretation Comments Lymphocytes # (test code = Lymphocytes 1.2 1.0-5.5 #) [facility] SystemGbhegjbHPWYIRRZIR7763-14-50 22:42:00 Test Item Value Reference Range Interpretation Comments Basophils (test code = 0.2 See_Comment [Aut omated message] The Basophils) system which ge nerated this result tra nsmitted reference range : <=1.0. The reference r nilam was not used to int erpret this result as normal/abnormal . [facility] SystemAgwwyctNHNXFRTBZM6164-41-48 22:42:00 Test Item Value Reference Range Interpretation Comments Segs (test code = Segs) 70.2 45.0-75.0 [facility]IR[facility] [id number] 22:42:00 Test Item Value Reference Range Interpretation Comments Influ B (test code = Negative (03/17/16 4:42 Influ B) PM) [facility] CenterGOPOP.TV YBNMVLFD1506-67-96 22:42:00 Test Item Value Reference Range Interpretation Comments Influ A (test code = Negative (03/17/16 4:42 Influ A) PM) [facility] [id number] 22:42:00 Test Item Value Reference Range Interpretation Comments Lipase Lvl (test code = Lipase Lvl) 193 73-393 [facility]Private [facility] [place] [id number] 22:42:00 Test Item Value Reference Range Interpretation Comments A/G Ratio (test code = A/G Ratio) 0.5 0.7-1.6 [facility] [place] [id number] 22:42:00 Test Item Value Reference Range Interpretation Comments AGAP (test code = AGAP) 11.4 10.0-20.0 [facility] [place] [id number] 22:42:00 Test Item Value Reference Range Interpretation Comments Globulin (test code = Globulin) 5.5 2.7-4.2 [facility]2016-12-23 22:42:00 Test Item Value Reference Range Interpretation Comments B/C Ratio (test code = B/C Ratio) 7 6-25 [facility]2016-12-23 22:42:00 Test Item Value Reference Range Interpretation Comments eGFR (test code = eGFR) 100 [facility]2016-12-23 22:42:00 Test Item Value Reference Range Interpretation Comments ALANINE AMINOTRANSFERASE 65 See_Comment [A utomated message] (test code = ALANINE The sys tem which AMINOTRANSFERASE) generated this result transmitted ref erence range: <=65. Th e reference range was not used to int erpret this result as normal/abnormal . [facility]2016-12-23 22:42:00 Test Item Value Reference Range Interpretation Comments Potassium Lvl (test code = Potassium 3.4 3.5-5.1 Lvl) [facility]2016-12-23 22:42:00 Test Item Value Reference Range Interpretation Comments BUN (test code = BUN) 6 - [facility]2016-12-23 22:42:00 Test Item Value Reference Range Interpretation Comments Sodium Lvl (test code = Sodium Lvl) 137 135-145 [facility]2016-12-23 22:42:00 Test Item Value Reference Range Interpretation Comments Creatinine Lvl (test code = Creatinine 0.85 0.50-1.40 Lvl) [facility]2016-12-23 22:42:00 Test Item Value Reference Range Interpretation Comments Bili Total (test code = Bili Total) 0.5 0.2-1.3 [facility]2016-12-23 22:42:00 Test Item Value Reference Range Interpretation Comments Chloride Lvl (test code = Chloride Lvl) 100 95-109 [facility]2016-12-23 22:42:00 Test Item Value Reference Range Interpretation Comments Calcium Lvl (test code = Calcium Lvl) 9.6 8.5-10.5 [facility]2016-12-23 22:42:00 Test Item Value Reference Range Interpretation Comments CO2 (test code = CO2) 29 24-32 [facility]2016-12-23 22:42:00 Test Item Value Reference Range Interpretation Comments ASPARTATE TRANSAMINASE 59 See_Comment [Aut omated message] (test code = ASPARTATE The s ystem which TRANSAMINASE) generated this result transmitted ref erence range: <=37. Th e reference range was not used to interpr et this result as normal/abnormal . [facility]2016-12-23 22:42:00 Test Item Value Reference Range Interpretation Comments Total Protein (test code = Total 8.5 6.4-8.4 Protein) [facility]2016-12-23 22:42:00 Test Item Value Reference Range Interpretation Comments Glucose Lvl (test code = Glucose Lvl) 106 70-99 [facility]2016-12-23 22:42:00 Test Item Value Reference Range Interpretation Comments Albumin Lvl (test code = Albumin Lvl) 3.0 3.5-5.0 [facility]2016-12-23 22:42:00 Test Item Value Reference Range Interpretation Comments Alk Phos (test code = Alk Phos) 83 39-136 [place] [id number] 22:42:00 Test Item Value Reference Range Interpretation Comments S Preg (test code = S Negative *NA*(03/17/16 Preg) 4:42 PM) [facility] SystemViswfktTHCYNDSKHS3800-31-71 22:42:00 Test Item Value Reference Range Interpretation Comments MPV (test code = MPV) 8.6 7.4-10.4 [facility] SystemWtoyxvhCDTOOIOFRY6272-80-67 22:42:00 Test Item Value Reference Range Interpretation Comments MCHC (test code = MCHC) 34.3 32.0-36.0 [facility] SystemRzhmpmuSWLANBJTVT8136-63-42 22:42:00 Test Item Value Reference Range Interpretation Comments Platelet (test code = Platelet) 133 133-450 [facility] SystemCtifggrQLGKYBFTNI4946-05-08 22:42:00 Test Item Value Reference Range Interpretation Comments RDW (test code = RDW) 16.8 11.5-14.5 [facility] SystemPcncknfMJHIFOWGMZ3296-74-21 22:42:00 Test Item Value Reference Range Interpretation Comments MCH (test code = MCH) 28.7 pg 27.0-31.0 [facility] SystemPpahlgxVGFINWURRS5666-71-91 22:42:00 Test Item Value Reference Range Interpretation Comments Hgb (test code = Hgb) 11.7 12.0-16.0 [facility] SystemUrdrichEHJHIWTPDX2851-15-03 22:42:00 Test Item Value Reference Range Interpretation Comments Hct (test code = Hct) 34.1 36.0-48.0 [facility] SystemZadksviAKGRCXHTMI2427-03-10 22:42:00 Test Item Value Reference Range Interpretation Comments WBC X 10x3 (test code = WBC X 10x3) 7.6 3.7-10.4 [facility] SystemBtjovbiXLULMLLXKQ5972-75-61 22:42:00 Test Item Value Reference Range Interpretation Comments MCV (test code = MCV) 83.6 80.0-98.0 [facility] SystemEqjckxzTDZGOSPYGB9415-86-85 22:42:00 Test Item Value Reference Range Interpretation Comments RBC X 10x6 (test code = RBC X 10x6) 4.08 4.20-5.40 [place] [address]-12-23 22:42:00 Test Item Value Reference Range Interpretation Comments Eosinophils (test code = 0.6 See_Comment [A utomated message] The Eosinophils) system which ge nerated this result tra nsmitted reference range : <=4.0. The reference r nilam was not used to int erpret this result as normal/abnormal . [facility] SystemLbuqogjMSPZNBXIFN1167-50-60 22:42:00 Test Item Value Reference Range Interpretation Comments Lymphocytes (test code = Lymphocytes) 16.1 20.0-40.0 [facility] SystemBsmtimqSWAEIQHNMV4376-69-32 22:42:00 Test Item Value Reference Range Interpretation Comments Monocytes (test code = Monocytes) 12.9 2.0-12.0 [place] [id number] 22:42:00 Test Item Value Reference Range Interpretation Comments Segs-Bands # (test code = Segs-Bands #) 5.3 1.5-8.1 [facility] SystemIhkubayHZFWTYTVGR6092-24-69 22:42:00 Test Item Value Reference Range Interpretation Comments Monocytes # (test code 1.0 See_Comment [Aut omated message] The = Monocytes #) system which generated this result tra nsmitted reference range : <=0.8. The reference r nilam was not used to int erpret this result as normal/abnormal . [facility] SystemUghoqeiIJIRVMGDDL7374-25-26 22:42:00 Test Item Value Reference Range Interpretation Comments Lymphocytes # (test code = Lymphocytes 1.2 1.0-5.5 #) [facility] SystemYlhghuaWDFCTNPZRM1562-19-75 22:42:00 Test Item Value Reference Range Interpretation Comments Basophils (test code = 0.2 See_Comment [Aut omated message] The Basophils) system which ge nerated this result tra nsmitted reference range : <=1.0. The reference r nilam was not used to int erpret this result as normal/abnormal . [facility] SystemCrlazrjKGXEOCKRED3485-19-42 22:42:00 Test Item Value Reference Range Interpretation Comments Segs (test code = Segs) 70.2 45.0-75.0 [facility] CenterVIRAL KWGWLUPD5341-12-09 22:42:00 Test Item Value Reference Range Interpretation Comments Influ B (test code = Negative (03/17/16 4:42 Influ B) PM) [facility] HZFBMOUA0626-08-21 22:42:00 Test Item Value Reference Range Interpretation Comments Influ A (test code = Negative (03/17/16 4:42 Influ A) PM) [facility]2016-12-23 22:42:00 Test Item Value Reference Range Interpretation Comments Lipase Lvl (test code = Lipase Lvl) 193 73-393 [facility]2016-12-23 22:42:00 Test Item Value Reference Range Interpretation Comments A/G Ratio (test code = A/G Ratio) 0.5 0.7-1.6 [facility]2016-12-23 22:42:00 Test Item Value Reference Range Interpretation Comments AGAP (test code = AGAP) 11.4 10.0-20.0 [facility]2016-12-23 22:42:00 Test Item Value Reference Range Interpretation Comments Globulin (test code = Globulin) 5.5 2.7-4.2 [facility]2016-12-23 22:42:00 Test Item Value Reference Range Interpretation Comments B/C Ratio (test code = B/C Ratio) 7 6-25 [facility]2016-12-23 22:42:00 Test Item Value Reference Range Interpretation Comments eGFR (test code = eGFR) 100 [facility]2016-12-23 22:42:00 Test Item Value Reference Range Interpretation Comments ALANINE AMINOTRANSFERASE 65 See_Comment [A utomated message] (test code = ALANINE The sys tem which AMINOTRANSFERASE) generated this result transmitted ref erence range: <=65. Th e reference range was not used to int erpret this result as normal/abnormal . [facility]2016-12-23 22:42:00 Test Item Value Reference Range Interpretation Comments Potassium Lvl (test code = Potassium 3.4 3.5-5.1 Lvl) [facility]2016-12-23 22:42:00 Test Item Value Reference Range Interpretation Comments BUN (test code = BUN) 6 7-22 [facility]2016-12-23 22:42:00 Test Item Value Reference Range Interpretation Comments Sodium Lvl (test code = Sodium Lvl) 137 135-145 [facility]2016-12-23 22:42:00 Test Item Value Reference Range Interpretation Comments Creatinine Lvl (test code = Creatinine 0.85 0.50-1.40 Lvl) [facility]2016-12-23 22:42:00 Test Item Value Reference Range Interpretation Comments Bili Total (test code = Bili Total) 0.5 0.2-1.3 [facility]2016-12-23 22:42:00 Test Item Value Reference Range Interpretation Comments Chloride Lvl (test code = Chloride Lvl) 100 95-109 [facility]2016-12-23 22:42:00 Test Item Value Reference Range Interpretation Comments Calcium Lvl (test code = Calcium Lvl) 9.6 8.5-10.5 [facility]2016-12-23 22:42:00 Test Item Value Reference Range Interpretation Comments CO2 (test code = CO2) 29 24-32 [facility]2016-12-23 22:42:00 Test Item Value Reference Range Interpretation Comments ASPARTATE TRANSAMINASE 59 See_Comment [Aut omated message] (test code = ASPARTATE The s ystem which TRANSAMINASE) generated this result transmitted ref erence range: <=37. Th e reference range was not used to interpr et this result as normal/abnormal . [facility]2016-12-23 22:42:00 Test Item Value Reference Range Interpretation Comments Total Protein (test code = Total 8.5 6.4-8.4 Protein) [facility]2016-12-23 22:42:00 Test Item Value Reference Range Interpretation Comments Glucose Lvl (test code = Glucose Lvl) 106 70-99 [facility] [id number] 22:42:00 Test Item Value Reference Range Interpretation Comments Albumin Lvl (test code = Albumin Lvl) 3.0 3.5-5.0 [facility]2016-12-23 22:42:00 Test Item Value Reference Range Interpretation Comments Alk Phos (test code = Alk Phos) 83 39-136 [facility]XdhhwxzJHJKDYFZQPLOL2483-15-58 22:42:00 Test Item Value Reference Range Interpretation Comments S Preg (test code = S Negative *NA*(03/17/16 Preg) 4:42 PM) [facility] SystemErloavdRRQXSUOCMR9960-15-88 22:42:00 Test Item Value Reference Range Interpretation Comments MPV (test code = MPV) 8.6 7.4-10.4 [facility] SystemRpysxhaTESPTEGUCN9685-78-48 22:42:00 Test Item Value Reference Range Interpretation Comments MCHC (test code = MCHC) 34.3 32.0-36.0 [facility] SystemDxneezpMNYDKRMCKV1300-37-33 22:42:00 Test Item Value Reference Range Interpretation Comments Platelet (test code = Platelet) 133 133-450 [facility] SystemDpahmrbZRUHHRXJEE5263-11-41 22:42:00 Test Item Value Reference Range Interpretation Comments RDW (test code = RDW) 16.8 11.5-14.5 [facility] SystemPyjkftkVDKGHNUUKJ9056-39-43 22:42:00 Test Item Value Reference Range Interpretation Comments MCH (test code = MCH) 28.7 pg 27.0-31.0 [facility] SystemFggyfrdJPXMJJTXSD3635-54-61 22:42:00 Test Item Value Reference Range Interpretation Comments Hgb (test code = Hgb) 11.7 12.0-16.0 [facility] SystemJvhjverCGBBLVYJWW8493-75-32 22:42:00 Test Item Value Reference Range Interpretation Comments Hct (test code = Hct) 34.1 36.0-48.0 [facility] SystemPaderouYLPPJEUPVQ1275-40-87 22:42:00 Test Item Value Reference Range Interpretation Comments WBC X 10x3 (test code = WBC X 10x3) 7.6 3.7-10.4 [facility] SystemIfitprzTWBOVMMDDN0646-29-46 22:42:00 Test Item Value Reference Range Interpretation Comments MCV (test code = MCV) 83.6 80.0-98.0 [facility] SystemWuojaylPKLSKQZVPC7472-83-35 22:42:00 Test Item Value Reference Range Interpretation Comments RBC X 10x6 (test code = RBC X 10x6) 4.08 4.20-5.40 [facility] SystemJpswpjuADLYYWKNKX6450-36-19 22:42:00 Test Item Value Reference Range Interpretation Comments Eosinophils (test code = 0.6 See_Comment [A utomated message] The Eosinophils) system which ge nerated this result tra nsmitted reference range : <=4.0. The reference r nilam was not used to int erpret this result as normal/abnormal . [facility] SystemMrfuyrsUWIZVCIVOK2906-22-42 22:42:00 Test Item Value Reference Range Interpretation Comments Lymphocytes (test code = Lymphocytes) 16.1 20.0-40.0 [facility] SystemYkdojpnEYXUCOSTFO6047-42-04 22:42:00 Test Item Value Reference Range Interpretation Comments Monocytes (test code = Monocytes) 12.9 2.0-12.0 [facility] SystemKtisarpUZDRTQRHVL4439-61-53 22:42:00 Test Item Value Reference Range Interpretation Comments Segs-Bands # (test code = Segs-Bands #) 5.3 1.5-8.1 [facility] SystemMjyznjxFQRYNLSLZS8348-09-83 22:42:00 Test Item Value Reference Range Interpretation Comments Monocytes # (test code 1.0 See_Comment [Aut omated message] The = Monocytes #) system which generated this result tra nsmitted reference range : <=0.8. The reference r nilam was not used to int erpret this result as normal/abnormal . [facility] SystemPyezvzhEDJNOOHHSC8966-46-59 22:42:00 Test Item Value Reference Range Interpretation Comments Lymphocytes # (test code = Lymphocytes 1.2 1.0-5.5 #) [facility] SystemSmqkpwdWYJNELBXMP4715-24-86 22:42:00 Test Item Value Reference Range Interpretation Comments Basophils (test code = 0.2 See_Comment [Aut omated message] The Basophils) system which ge nerated this result tra nsmitted reference range : <=1.0. The reference r nilam was not used to int erpret this result as normal/abnormal . [facility] SystemNibanumDZJMHGXBAL8500-00-63 22:42:00 Test Item Value Reference Range Interpretation Comments Segs (test code = Segs) 70.2 45.0-75.0 [facility]annVIRAL - [id number] 22:42:00 Test Item Value Reference Range Interpretation Comments Influ B (test code = Negative (03/17/16 4:42 Influ B) PM) [facility]annVIRAL - [id number] 22:42:00 Test Item Value Reference Range Interpretation Comments Influ A (test code = Negative (03/17/16 4:42 Influ A) PM) [facility] [id number] 11:10:00 Test Item Value Reference Range Interpretation Comments % Satur Fe (test code = % Satur Fe) 6 12-57 [facility] [id number] 11:10:00 Test Item Value Reference Range Interpretation Comments TIBC (test code = TIBC) 478 228-428 [facility] [id number] 11:10:00 Test Item Value Reference Range Interpretation Comments UIBC (test code = UIBC) 448 110-370 [facility] [id number] 11:10:00 Test Item Value Reference Range Interpretation Comments Iron (test code = Iron) 30 30-160 [facility] [id number] 11:10:00 Test Item Value Reference Range Interpretation Comments Ferritin Lvl (test code = Ferritin Lvl) 5 5-204 [facility] CenterCARVisual NetworksAC UKVGITI0605-00-28 11:10:00 Test Item Value Reference Range Interpretation Comments CK MB (test code = CK MB) 0.7 0.5-3.6 [facility] CenterFuego NationAC VFVMQSJ8625-25-11 11:10:00 Test Item Value Reference Range Interpretation Comments Total CK (test code = Total CK) 217 12-191 [facility] CenterCARVisual NetworksAC TPSMUAO5530-75-00 11:10:00 Test Item Value Reference Range Interpretation Comments CK MB Index (test 0.3 See_Comment [Automate d message] The code = CK MB Index) system w [facility] generated this result transmit kuldip reference range : <=2.5. The reference range was not used to interpr et this result as abiodun l/abnormal. [facility] HospitalBitLitCHEM [id number] 11:10:00 Test Item Value Reference Range Interpretation Comments eGFR (test code = eGFR) 132 [facility]2016-01-14 11:10:00 Test Item Value Reference Range Interpretation Comments AST (test code = AST) 39 See_Comment [Auto mated message] The system which ge nerated this result transmit kuldip reference range : <=37. The reference range was not used to interpr et this result as abiodun l/abnormal. [facility] HospitalBitLitUNC HEALTH APPALACHIANTICYT0120-93-83 11:10:00 Test Item Value Reference Range Interpretation Comments Alk Phos (test code = Alk Phos) 91 39-136 [facility]2016-01-14 11:10:00 Test Item Value Reference Range Interpretation Comments ALT (test code = ALT) 25 See_Comment [Auto mated message] The system which ge nerated this result transmit kuldip reference range : <=65. The reference range was not used to interpr et this result as abiodun l/abnormal. [facility]2016-01-14 11:10:00 Test Item Value Reference Range Interpretation Comments Bili Total (test code = Bili Total) 0.4 0.2-1.3 [facility]2016-01-14 11:10:00 Test Item Value Reference Range Interpretation Comments Calcium Lvl (test code = Calcium Lvl) 9.4 8.5-10.5 [facility]2016-01-14 11:10:00 Test Item Value Reference Range Interpretation Comments B/C Ratio (test code = B/C Ratio) 13 6-25 [facility]2016-01-14 11:10:00 Test Item Value Reference Range Interpretation Comments AGAP (test code = AGAP) 15.2 10.0-20.0 [facility] Hospitalbas[facility] [id number] 11:10:00 Test Item Value Reference Range Interpretation Comments CO2 (test code = CO2) 21 24-32 [facility] HospitalBitLitUNC HEALTH [id number] 11:10:00 Test Item Value Reference Range Interpretation Comments A/G Ratio (test code = A/G Ratio) 0.5 0.7-1.6 [facility]2016-01-14 11:10:00 Test Item Value Reference Range Interpretation Comments Globulin (test code = Globulin) 5.0 2.0-4.0 [facility] Hospital[facility] [id number] 11:10:00 Test Item Value Reference Range Interpretation Comments Total Protein (test code = Total 7.7 6.4-8.4 Protein) [facility]2016-01-14 11:10:00 Test Item Value Reference Range Interpretation Comments Albumin Lvl (test code = Albumin Lvl) 2.7 3.5-5.0 [place] [id number] 11:10:00 Test Item Value Reference Range Interpretation Comments BUN (test code = BUN) 8 7-22 [facility]2016-01-14 11:10:00 Test Item Value Reference Range Interpretation Comments Glucose Lvl (test code = Glucose Lvl) 86 70-99 [facility]2016-01-14 11:10:00 Test Item Value Reference Range Interpretation Comments Creatinine Lvl (test code = Creatinine 0.60 0.50-1.40 Lvl) [facility]2016-01-14 11:10:00 Test Item Value Reference Range Interpretation Comments Sodium Lvl (test code = Sodium Lvl) 138 135-145 [facility]2016-01-14 11:10:00 Test Item Value Reference Range Interpretation Comments Chloride Lvl (test code = Chloride Lvl) 106 95-109 [facility]2016-01-14 11:10:00 Test Item Value Reference Range Interpretation Comments Potassium Lvl (test code = Potassium 4.2 3.5-5.1 Lvl) [facility] SystemGkzivftBYSNZKQEBF2357-91-41 11:10:00 Test Item Value Reference Range Interpretation Comments Polychrom (test code = Moderate *ABN*(04/08/15 Polychrom) 5:10 AM) [facility] SystemUcrkyskYSLPKXJAHB9031-08-88 11:10:00 Test Item Value Reference Range Interpretation Comments Microcyte (test code = 2+ *ABN*(04/08/15 Microcyte) 5:10 AM) [facility] SystemCrfbzxfDTPOWNPEEB9640-07-03 11:10:00 Test Item Value Reference Range Interpretation Comments Basophils # (test code 0.0 See_Comment [Aut omated message] The = Basophils #) system which generated this result tra nsmitted reference range : <=0.2. The reference r nilam was not used to int erpret this result as normal/abnormal . [facility] SystemIiirqzsSVKAKGZQJH2836-30-80 11:10:00 Test Item Value Reference Range Interpretation Comments Plt Morph (test code = Normal (04/08/15 5:10 Plt Morph) AM) [facility] SystemHnwyuwvKFOWDWMDMY5788-05-22 11:10:00 Test Item Value Reference Range Interpretation Comments Lymphocytes # (test code = Lymphocytes 1.8 1.0-5.5 #) [facility] SystemDgapkbhBGJIPPRLDG7544-82-48 11:10:00 Test Item Value Reference Range Interpretation Comments Segs-Bands # (test code = Segs-Bands #) 3.0 1.5-8.1 [facility] SystemIwvxnvjGNURXJEOYV0277-42-62 11:10:00 Test Item Value Reference Range Interpretation Comments Monocytes # (test code 0.4 See_Comment [Aut omated message] The = Monocytes #) system which generated this result tra nsmitted reference range : <=0.8. The reference r nilam was not used to int erpret this result as normal/abnormal . [facility] SystemNhpbafjJDVZDFPSFO7325-96-43 11:10:00 Test Item Value Reference Range Interpretation Comments Eosinophils # (test code 0.1 See_Comment [A utomated message] The = Eosinophils #) system whic h generated this result tra nsmitted reference range : <=0.5. The reference r nilam was not used to int erpret this result as normal/abnormal . [facility] SystemWkzwvwmEUKGEZGSXB8936-69-35 11:10:00 Test Item Value Reference Range Interpretation Comments Monocytes (test code = Monocytes) 7.0 2.0-12.0 [facility] SystemJpgxbyzZNEKBTOLXI3391-10-40 11:10:00 Test Item Value Reference Range Interpretation Comments Segs (test code = Segs) 56.2 45.0-75.0 [facility] SystemDxubhdbEXQLYTQWGW0019-86-55 11:10:00 Test Item Value Reference Range Interpretation Comments Eosinophils (test code = 2.0 See_Comment [A utomated message] The Eosinophils) system which ge nerated this result tra nsmitted reference range : <=4.0. The reference r nilam was not used to int erpret this result as normal/abnormal . [facility] SystemDdurjzlCSWQMIDHTJ9964-55-55 11:10:00 Test Item Value Reference Range Interpretation Comments Lymphocytes (test code = Lymphocytes) 34.2 20.0-40.0 [facility] SystemOglntbyOINJYSFNJL5038-67-88 11:10:00 Test Item Value Reference Range Interpretation Comments Basophils (test code = 0.6 See_Comment [Aut omated message] The Basophils) system which ge nerated this result tra nsmitted reference range : <=1.0. The reference r nilam was not used to int erpret this result as normal/abnormal . [facility] SystemDonyhauKLMRPNDZQD9568-58-18 11:10:00 Test Item Value Reference Range Interpretation Comments MPV (test code = MPV) 8.3 7.4-10.4 [facility] SystemJsrrpifBABVKEYPGV5268-19-96 11:10:00 Test Item Value Reference Range Interpretation Comments Platelet (test code = Platelet) 291 133-450 [facility] SystemIvpbmgjBADIWVEXQI3009-60-60 11:10:00 Test Item Value Reference Range Interpretation Comments RDW (test code = RDW) 17.7 11.5-14.5 [facility] SystemClbmhxbGMEPMXCIJJ1245-89-90 11:10:00 Test Item Value Reference Range Interpretation Comments MCHC (test code = MCHC) 30.4 32.0-36.0 [facility] SystemGqvgegiTYBSRUZEKX3038-05-21 11:10:00 Test Item Value Reference Range Interpretation Comments MCH (test code = MCH) 21.9 pg 27.0-31.0 [facility] SystemBwzidfwJHFHQRQSMF6660-63-43 11:10:00 Test Item Value Reference Range Interpretation Comments RBC (test code = RBC) 3.99 4.20-5.40 [facility] SystemRfblunfPYNFCCDFLQ9376-47-45 11:10:00 Test Item Value Reference Range Interpretation Comments WBC (test code = WBC) 5.4 3.7-10.4 [facility] SystemNxjuwphSFZWXVUPFG2444-66-39 11:10:00 Test Item Value Reference Range Interpretation Comments MCV (test code = MCV) 72.1 80.0-98.0 [facility] SystemKuobigqOXGZIILPNJ0147-84-19 11:10:00 Test Item Value Reference Range Interpretation Comments Hgb (test code = Hgb) 8.8 12.0-16.0 [facility] SystemWaqbpwvDEFEXUHVNY9896-78-16 11:10:00 Test Item Value Reference Range Interpretation Comments Hct (test code = Hct) 28.8 36.0-48.0 [facility] 11:10:00 Test Item Value Reference Range Interpretation Comments CHD Risk (test code = CHD Risk) 3.45 3.90-5.80 [facility]YjqpufeMXFUXK5913-21-06 11:10:00 Test Item Value Reference Range Interpretation Comments HDL (test code = HDL) 53 [facility] CenterSedwcvmHRVWQL6752-20-71 11:10:00 Test Item Value Reference Range Interpretation Comments LDL (Calculated) (test code = LDL 106 (Calculated)) [facility] HospitalLasttxrNLJBQR9965-97-91 11:10:00 Test Item Value Reference Range Interpretation Comments Trig (test code = Trig) 121 [facility] CenterMbtietqWLWPIJ4439-36-28 11:10:00 Test Item Value Reference Range Interpretation Comments Chol (test code = Chol) 183 [facility] HospitalHmhoxmoKOQRTC4395-58-31 11:10:00 Test Item Value Reference Range Interpretation Comments VLDL (test code = VLDL) 24 [facility] WTPQP3164-03-17 11:10:00 Test Item Value Reference Range Interpretation Comments % Satur Fe (test code = % Satur Fe) 6 12-57 [facility] EPSJY8820-00-57 11:10:00 Test Item Value Reference Range Interpretation Comments TIBC (test code = TIBC) 478 228-428 [facility] LCFJQ5445-13-51 11:10:00 Test Item Value Reference Range Interpretation Comments UIBC (test code = UIBC) 448 110-370 [facility] OSNHU5740-92-66 11:10:00 Test Item Value Reference Range Interpretation Comments Iron (test code = Iron) 30 30-160 [facility] [id number] 11:10:00 Test Item Value Reference Range Interpretation Comments Ferritin Lvl (test code = Ferritin Lvl) 5 5-204 [facility] KBTNKYE1598-84-97 11:10:00 Test Item Value Reference Range Interpretation Comments CK MB (test code = CK MB) 0.7 0.5-3.6 [facility] LXXPDHY9253-47-31 11:10:00 Test Item Value Reference Range Interpretation Comments Total CK (test code = Total CK) 217 12-191 [facility] UOMGTIT5342-64-94 11:10:00 Test Item Value Reference Range Interpretation Comments CK MB Index (test 0.3 See_Comment [Automate d message] The code = CK MB Index) system w [facility] generated this result transmit kuldip reference range : <=2.5. The reference range was not used to interpr et this result as abiodun l/abnormal. [facility]2016-01-14 11:10:00 Test Item Value Reference Range Interpretation Comments eGFR (test code = eGFR) 132 [facility]2016-01-14 11:10:00 Test Item Value Reference Range Interpretation Comments AST (test code = AST) 39 See_Comment [Auto mated message] The system which ge nerated this result transmit kuldip reference range : <=37. The reference range was not used to interpr et this result as abiodun l/abnormal. [facility]2016-01-14 11:10:00 Test Item Value Reference Range Interpretation Comments Alk Phos (test code = Alk Phos) 91 39-136 [facility]2016-01-14 11:10:00 Test Item Value Reference Range Interpretation Comments ALT (test code = ALT) 25 See_Comment [Auto mated message] The system which ge nerated this result transmit kuldip reference range : <=65. The reference range was not used to interpr et this result as abiodun l/abnormal. [facility]2016-01-14 11:10:00 Test Item Value Reference Range Interpretation Comments Bili Total (test code = Bili Total) 0.4 0.2-1.3 [facility]2016-01-14 11:10:00 Test Item Value Reference Range Interpretation Comments Calcium Lvl (test code = Calcium Lvl) 9.4 8.5-10.5 [facility]2016-01-14 11:10:00 Test Item Value Reference Range Interpretation Comments B/C Ratio (test code = B/C Ratio) 13 6-25 [facility]2016-01-14 11:10:00 Test Item Value Reference Range Interpretation Comments AGAP (test code = AGAP) 15.2 10.0-20.0 [facility]2016-01-14 11:10:00 Test Item Value Reference Range Interpretation Comments CO2 (test code = CO2) 21 24-32 [facility]2016-01-14 11:10:00 Test Item Value Reference Range Interpretation Comments A/G Ratio (test code = A/G Ratio) 0.5 0.7-1.6 [facility]2016-01-14 11:10:00 Test Item Value Reference Range Interpretation Comments Globulin (test code = Globulin) 5.0 2.0-4.0 [facility]2016-01-14 11:10:00 Test Item Value Reference Range Interpretation Comments Total Protein (test code = Total 7.7 6.4-8.4 Protein) [facility]2016-01-14 11:10:00 Test Item Value Reference Range Interpretation Comments Albumin Lvl (test code = Albumin Lvl) 2.7 3.5-5.0 [facility]2016-01-14 11:10:00 Test Item Value Reference Range Interpretation Comments BUN (test code = BUN) 8 7-22 [facility]2016-01-14 11:10:00 Test Item Value Reference Range Interpretation Comments Glucose Lvl (test code = Glucose Lvl) 86 70-99 [facility]2016-01-14 11:10:00 Test Item Value Reference Range Interpretation Comments Creatinine Lvl (test code = Creatinine 0.60 0.50-1.40 Lvl) [facility]2016-01-14 11:10:00 Test Item Value Reference Range Interpretation Comments Sodium Lvl (test code = Sodium Lvl) 138 135-145 [facility]2016-01-14 11:10:00 Test Item Value Reference Range Interpretation Comments Chloride Lvl (test code = Chloride Lvl) 106 95-109 [facility]2016-01-14 11:10:00 Test Item Value Reference Range Interpretation Comments Potassium Lvl (test code = Potassium 4.2 3.5-5.1 Lvl) [facility] SystemUifmcqlBKXUPZXFXM9688-03-71 11:10:00 Test Item Value Reference Range Interpretation Comments Polychrom (test code = Moderate *ABN*(04/08/15 Polychrom) 5:10 AM) [facility] SystemQtpezzfISNHSUXESP3884-88-40 11:10:00 Test Item Value Reference Range Interpretation Comments Microcyte (test code = 2+ *ABN*(04/08/15 Microcyte) 5:10 AM) [facility] SystemOzsobshAHNONTCNZU1229-77-42 11:10:00 Test Item Value Reference Range Interpretation Comments Basophils # (test code 0.0 See_Comment [Aut omated message] The = Basophils #) system which generated this result tra nsmitted reference range : <=0.2. The reference r nilam was not used to int erpret this result as normal/abnormal . [facility] SystemQzqncfaILUJHCAHSQ9529-22-03 11:10:00 Test Item Value Reference Range Interpretation Comments Plt Morph (test code = Normal (04/08/15 5:10 Plt Morph) AM) [facility] SystemNgvwsfuOFRTELIMOQ9858-08-59 11:10:00 Test Item Value Reference Range Interpretation Comments Lymphocytes # (test code = Lymphocytes 1.8 1.0-5.5 #) [facility] SystemAovaoowDZGSQMBYEB6576-50-01 11:10:00 Test Item Value Reference Range Interpretation Comments Segs-Bands # (test code = Segs-Bands #) 3.0 1.5-8.1 [facility] SystemYnrijouTMAKKAEAHJ6236-23-19 11:10:00 Test Item Value Reference Range Interpretation Comments Monocytes # (test code 0.4 See_Comment [Aut omated message] The = Monocytes #) system which generated this result tra nsmitted reference range : <=0.8. The reference r nilam was not used to int erpret this result as normal/abnormal . [facility] SystemAdjfgnqPGMIWPHBNZ4318-94-88 11:10:00 Test Item Value Reference Range Interpretation Comments Eosinophils # (test code 0.1 See_Comment [A utomated message] The = Eosinophils #) system whic h generated this result tra nsmitted reference range : <=0.5. The reference r nilam was not used to int erpret this result as normal/abnormal . [facility] SystemTevycznHIMWASHHCZ6929-90-80 11:10:00 Test Item Value Reference Range Interpretation Comments Monocytes (test code = Monocytes) 7.0 2.0-12.0 [facility] SystemHdijeeuJBRUZEBMVZ5663-93-97 11:10:00 Test Item Value Reference Range Interpretation Comments Segs (test code = Segs) 56.2 45.0-75.0 [facility] SystemDudrlecBQPZYYFQHA7500-68-25 11:10:00 Test Item Value Reference Range Interpretation Comments Eosinophils (test code = 2.0 See_Comment [A utomated message] The Eosinophils) system which ge nerated this result tra nsmitted reference range : <=4.0. The reference r nilam was not used to int erpret this result as normal/abnormal . [facility] SystemDvthkvaWZRDTGENKF4117-66-17 11:10:00 Test Item Value Reference Range Interpretation Comments Lymphocytes (test code = Lymphocytes) 34.2 20.0-40.0 [facility] SystemZzydsxfHQMTKIQUKX8092-14-98 11:10:00 Test Item Value Reference Range Interpretation Comments Basophils (test code = 0.6 See_Comment [Aut omated message] The Basophils) system which ge nerated this result tra nsmitted reference range : <=1.0. The reference r nilam was not used to int erpret this result as normal/abnormal . [facility] SystemLnpnmnaGSVSJXYVRH0589-42-24 11:10:00 Test Item Value Reference Range Interpretation Comments MPV (test code = MPV) 8.3 7.4-10.4 [facility] SystemAscwmtrLSTRCMCZIH0943-32-22 11:10:00 Test Item Value Reference Range Interpretation Comments Platelet (test code = Platelet) 291 133-450 [facility] SystemBtixeihGDZHWLIEAP8746-54-96 11:10:00 Test Item Value Reference Range Interpretation Comments RDW (test code = RDW) 17.7 11.5-14.5 [facility] SystemWmiksgiXGRLKKBLQV2041-44-66 11:10:00 Test Item Value Reference Range Interpretation Comments MCHC (test code = MCHC) 30.4 32.0-36.0 [facility] SystemDjceebxPHFOWGINIM7873-75-49 11:10:00 Test Item Value Reference Range Interpretation Comments MCH (test code = MCH) 21.9 pg 27.0-31.0 [facility] SystemIwzcrcrXXAXAFJZIM4847-71-23 11:10:00 Test Item Value Reference Range Interpretation Comments RBC (test code = RBC) 3.99 4.20-5.40 [facility] SystemAbifducSMGCMLEDQR7469-80-91 11:10:00 Test Item Value Reference Range Interpretation Comments WBC (test code = WBC) 5.4 3.7-10.4 [facility] SystemAsigwwyUNBXLWFGBI4121-58-09 11:10:00 Test Item Value Reference Range Interpretation Comments MCV (test code = MCV) 72.1 80.0-98.0 [facility] SystemCjtrllkKNEBGIWDJP3168-51-27 11:10:00 Test Item Value Reference Range Interpretation Comments Hgb (test code = Hgb) 8.8 12.0-16.0 [facility] SystemYxsxanwRJPDAPXOXA2024-96-63 11:10:00 Test Item Value Reference Range Interpretation Comments Hct (test code = Hct) 28.8 36.0-48.0 [facility]QfxpnliMXHTRD1291-06-32 11:10:00 Test Item Value Reference Range Interpretation Comments CHD Risk (test code = CHD Risk) 3.45 3.90-5.80 [facility] HospitalXxmppocLRUZTW0610-72-32 11:10:00 Test Item Value Reference Range Interpretation Comments HDL (test code = HDL) 53 [facility] HospitalCqnokgtJXGNPK5760-55-74 11:10:00 Test Item Value Reference Range Interpretation Comments LDL (Calculated) (test code = LDL 106 (Calculated)) [facility] HospitalSfaiasrOSDIEQ7322-51-97 11:10:00 Test Item Value Reference Range Interpretation Comments Trig (test code = Trig) 121 [facility] HospitalGqibvteYEZIGC2045-25-91 11:10:00 Test Item Value Reference Range Interpretation Comments Chol (test code = Chol) 183 [facility] HospitalSbmbwnaKAAUIO7822-41-51 11:10:00 Test Item Value Reference Range Interpretation Comments VLDL (test code = VLDL) 24 [facility] SIOZA5621-74-24 11:10:00 Test Item Value Reference Range Interpretation Comments % Satur Fe (test code = % Satur Fe) 6 12-57 [facility] ZIOPV7877-91-32 11:10:00 Test Item Value Reference Range Interpretation Comments TIBC (test code = TIBC) 478 228-428 [facility] BQAYC9209-08-94 11:10:00 Test Item Value Reference Range Interpretation Comments UIBC (test code = UIBC) 448 110-370 [facility] BCLEO9605-15-76 11:10:00 Test Item Value Reference Range Interpretation Comments Iron (test code = Iron) 30 30-160 [facility] XLGYH2514-69-13 11:10:00 Test Item Value Reference Range Interpretation Comments Ferritin Lvl (test code = Ferritin Lvl) 5 5-204 [facility]CAR[facility] BEHIMSG3014-05-73 11:10:00 Test Item Value Reference Range Interpretation Comments CK MB (test code = CK MB) 0.7 0.5-3.6 [facility] NHUVESW7287-27-61 11:10:00 Test Item Value Reference Range Interpretation Comments Total CK (test code = Total CK) 217 12-191 [facility] BIQTCWM4229-06-72 11:10:00 Test Item Value Reference Range Interpretation Comments CK MB Index (test 0.3 See_Comment [Automate d message] The code = CK MB Index) system w [place] generated this result transmit kuldip reference range : <=2.5. The reference range was not used to interpr et this result as abiodun l/abnormal. [facility]2016-01-14 11:10:00 Test Item Value Reference Range Interpretation Comments eGFR (test code = eGFR) 132 [facility]2016-01-14 11:10:00 Test Item Value Reference Range Interpretation Comments AST (test code = AST) 39 See_Comment [Auto mated message] The system which ge nerated this result transmit kuldip reference range : <=37. The reference range was not used to interpr et this result as abiodun l/abnormal. [facility]2016-01-14 11:10:00 Test Item Value Reference Range Interpretation Comments Alk Phos (test code = Alk Phos) 91 39-136 [facility]2016-01-14 11:10:00 Test Item Value Reference Range Interpretation Comments ALT (test code = ALT) 25 See_Comment [Auto mated message] The system which ge nerated this result transmit kuldip reference range : <=65. The reference range was not used to interpr et this result as abiodun l/abnormal. [facility]2016-01-14 11:10:00 Test Item Value Reference Range Interpretation Comments Bili Total (test code = Bili Total) 0.4 0.2-1.3 [facility]2016-01-14 11:10:00 Test Item Value Reference Range Interpretation Comments Calcium Lvl (test code = Calcium Lvl) 9.4 8.5-10.5 [facility]2016-01-14 11:10:00 Test Item Value Reference Range Interpretation Comments B/C Ratio (test code = B/C Ratio) 13 6-25 [facility]2016-01-14 11:10:00 Test Item Value Reference Range Interpretation Comments AGAP (test code = AGAP) 15.2 10.0-20.0 [facility]2016-01-14 11:10:00 Test Item Value Reference Range Interpretation Comments CO2 (test code = CO2) 21 24-32 [facility]2016-01-14 11:10:00 Test Item Value Reference Range Interpretation Comments A/G Ratio (test code = A/G Ratio) 0.5 0.7-1.6 [facility]2016-01-14 11:10:00 Test Item Value Reference Range Interpretation Comments Globulin (test code = Globulin) 5.0 2.0-4.0 [facility]2016-01-14 11:10:00 Test Item Value Reference Range Interpretation Comments Total Protein (test code = Total 7.7 6.4-8.4 Protein) [facility]2016-01-14 11:10:00 Test Item Value Reference Range Interpretation Comments Albumin Lvl (test code = Albumin Lvl) 2.7 3.5-5.0 [facility]2016-01-14 11:10:00 Test Item Value Reference Range Interpretation Comments BUN (test code = BUN) 8 7-22 [facility]2016-01-14 11:10:00 Test Item Value Reference Range Interpretation Comments Glucose Lvl (test code = Glucose Lvl) 86 70-99 [facility]2016-01-14 11:10:00 Test Item Value Reference Range Interpretation Comments Creatinine Lvl (test code = Creatinine 0.60 0.50-1.40 Lvl) [facility]2016-01-14 11:10:00 Test Item Value Reference Range Interpretation Comments Sodium Lvl (test code = Sodium Lvl) 138 135-145 [facility]2016-01-14 11:10:00 Test Item Value Reference Range Interpretation Comments Chloride Lvl (test code = Chloride Lvl) 106 95-109 [facility]2016-01-14 11:10:00 Test Item Value Reference Range Interpretation Comments Potassium Lvl (test code = Potassium 4.2 3.5-5.1 Lvl) [facility] SystemCfrlqvaWZENRPDXAC7600-20-02 11:10:00 Test Item Value Reference Range Interpretation Comments Polychrom (test code = Moderate *ABN*(04/08/15 Polychrom) 5:10 AM) [facility] SystemRpsrauyWCYEDWBIMB3548-23-56 11:10:00 Test Item Value Reference Range Interpretation Comments Microcyte (test code = 2+ *ABN*(1/14/16 Microcyte) 5:10 AM) [facility] SystemYdcxinlIDNAYESQVB3561-42-65 11:10:00 Test Item Value Reference Range Interpretation Comments Basophils # (test code 0.0 See_Comment [Aut omated message] The = Basophils #) system which generated this result tra nsmitted reference range : <=0.2. The reference r nilam was not used to int erpret this result as normal/abnormal . [facility] SystemJmhevoyLFAWARARBM1258-51-08 11:10:00 Test Item Value Reference Range Interpretation Comments Plt Morph (test code = Normal (04/08/15 5:10 Plt Morph) AM) [facility] SystemVjyteyuGLDNRBBEOI8973-15-04 11:10:00 Test Item Value Reference Range Interpretation Comments Lymphocytes # (test code = Lymphocytes 1.8 1.0-5.5 #) [facility] SystemVrmabcaLXYFMRJSPU1147-96-17 11:10:00 Test Item Value Reference Range Interpretation Comments Segs-Bands # (test code = Segs-Bands #) 3.0 1.5-8.1 [facility] SystemQjfadceLTASOPCLRW8445-44-50 11:10:00 Test Item Value Reference Range Interpretation Comments Monocytes # (test code 0.4 See_Comment [Aut omated message] The = Monocytes #) system which generated this result tra nsmitted reference range : <=0.8. The reference r nilam was not used to int erpret this result as normal/abnormal . [facility] SystemWhqbejwIDBRIPJSRY8548-28-04 11:10:00 Test Item Value Reference Range Interpretation Comments Eosinophils # (test code 0.1 See_Comment [A utomated message] The = Eosinophils #) system whic h generated this result tra nsmitted reference range : <=0.5. The reference r nilam was not used to int erpret this result as normal/abnormal . [facility] SystemQgcdqqkIUELJXJPMV1788-33-53 11:10:00 Test Item Value Reference Range Interpretation Comments Monocytes (test code = Monocytes) 7.0 2.0-12.0 [facility] SystemRbcmkvaHPIXICJZPF2639-70-01 11:10:00 Test Item Value Reference Range Interpretation Comments Segs (test code = Segs) 56.2 45.0-75.0 [facility] SystemAckkfftDLHZXHTRNM5987-66-29 11:10:00 Test Item Value Reference Range Interpretation Comments Eosinophils (test code = 2.0 See_Comment [A utomated message] The Eosinophils) system which ge nerated this result tra nsmitted reference range : <=4.0. The reference r nilam was not used to int erpret this result as normal/abnormal . [facility] SystemSejfhgtITODTCCVLE5673-33-23 11:10:00 Test Item Value Reference Range Interpretation Comments Lymphocytes (test code = Lymphocytes) 34.2 20.0-40.0 [facility] SystemZwygaehLSNWWJQRCH0222-87-66 11:10:00 Test Item Value Reference Range Interpretation Comments Basophils (test code = 0.6 See_Comment [Aut omated message] The Basophils) system which ge nerated this result tra nsmitted reference range : <=1.0. The reference r nilam was not used to int erpret this result as normal/abnormal . [facility] SystemMlbnxceHXVJHXZKVZ8617-50-72 11:10:00 Test Item Value Reference Range Interpretation Comments MPV (test code = MPV) 8.3 7.4-10.4 [facility] SystemZspzmutOLCVTXSCJN3260-59-19 11:10:00 Test Item Value Reference Range Interpretation Comments Platelet (test code = Platelet) 291 133-450 [facility] SystemGbxqvqnFREZYORUWC1346-49-33 11:10:00 Test Item Value Reference Range Interpretation Comments RDW (test code = RDW) 17.7 11.5-14.5 [facility] SystemNdnuxjsDIIWOGNIKF9388-95-77 11:10:00 Test Item Value Reference Range Interpretation Comments MCHC (test code = MCHC) 30.4 32.0-36.0 [facility] SystemMtgaopvJWRXULJUKB2447-60-07 11:10:00 Test Item Value Reference Range Interpretation Comments MCH (test code = MCH) 21.9 pg 27.0-31.0 [facility] SystemJdqjrysTUPHUQQMWO8309-27-30 11:10:00 Test Item Value Reference Range Interpretation Comments RBC (test code = RBC) 3.99 4.20-5.40 [facility] SystemMbgqceiACSXMTJHKZ5113-64-43 11:10:00 Test Item Value Reference Range Interpretation Comments WBC (test code = WBC) 5.4 3.7-10.4 [facility] SystemSkrhqwhVAHQYORBTT0606-13-68 11:10:00 Test Item Value Reference Range Interpretation Comments MCV (test code = MCV) 72.1 80.0-98.0 [facility] SystemUsbgtoxLTTNGKMMTY3673-35-41 11:10:00 Test Item Value Reference Range Interpretation Comments Hgb (test code = Hgb) 8.8 12.0-16.0 [facility]bl[facility]ocHXYKCXZRHT3942-46-23 11:10:00 Test Item Value Reference Range Interpretation Comments Hct (test code = Hct) 28.8 36.0-48.0 [facility] CenterBzflyobRJSHPR9700-65-04 11:10:00 Test Item Value Reference Range Interpretation Comments CHD Risk (test code = CHD Risk) 3.45 3.90-5.80 [facility] HospitalXeefwtwMRTOJQ1924-90-88 11:10:00 Test Item Value Reference Range Interpretation Comments HDL (test code = HDL) 53 [facility] HospitalCtgktrpEHHJTK6911-81-94 11:10:00 Test Item Value Reference Range Interpretation Comments LDL (Calculated) (test code = LDL 106 (Calculated)) [facility] CenterWsrxbqqRDTEGR5461-02-20 11:10:00 Test Item Value Reference Range Interpretation Comments Trig (test code = Trig) 121 [facility] CenterXwgvajxSTXJKF0035-01-86 11:10:00 Test Item Value Reference Range Interpretation Comments Chol (test code = Chol) 183 [facility] HospitalGbqbamjSSHWTG4759-24-92 11:10:00 Test Item Value Reference Range Interpretation Comments VLDL (test code = VLDL) 24 [facility] [id number] 11:10:00 Test Item Value Reference Range Interpretation Comments % Satur Fe (test code = % Satur Fe) 6 12-57 [facility] HSWBO1556-81-53 11:10:00 Test Item Value Reference Range Interpretation Comments TIBC (test code = TIBC) 478 228-428 [facility] OQTTK5515[facility]83 11:10:00 Test Item Value Reference Range Interpretation Comments UIBC (test code = UIBC) 448 110-370 [facility] [id number] 11:10:00 Test Item Value Reference Range Interpretation Comments Iron (test code = Iron) 30 30-160 [facility] QJYIX4555-23-15 11:10:00 Test Item Value Reference Range Interpretation Comments Ferritin Lvl (test code = Ferritin Lvl) 5 5-204 [facility] CenterCARDIAC FVSVSMA3594-50-37 11:10:00 Test Item Value Reference Range Interpretation Comments CK MB (test code = CK MB) 0.7 0.5-3.6 [facility] HospitalBitLitCARVisual NetworksAC OPTTOUK9922-85-91 11:10:00 Test Item Value Reference Range Interpretation Comments Total CK (test code = Total CK) 217 12-191 [facility] HospitalBitLitCARVisual NetworksAC GQMQRGQ1579-44-27 11:10:00 Test Item Value Reference Range Interpretation Comments CK MB Index (test 0.3 See_Comment [Automate d message] The code = CK MB Index) system w [employer] generated this result transmit kuldip reference range : <=2.5. The reference range was not used to interpr et this result as abiodun l/abnormal. [facility] RKDWZ7904-18-28 11:10:00 Test Item Value Reference Range Interpretation Comments eGFR (test code = eGFR) 132 [facility] [id number] 11:10:00 Test Item Value Reference Range Interpretation Comments AST (test code = AST) 39 See_Comment [Auto mated message] The system which ge nerated this result transmit kuldip reference range : <=37. The reference range was not used to interpr et this result as abiodun l/abnormal. [facility] [id number] 11:10:00 Test Item Value Reference Range Interpretation Comments Alk Phos (test code = Alk Phos) 91 39-136 [facility] [id number] 11:10:00 Test Item Value Reference Range Interpretation Comments ALT (test code = ALT) 25 See_Comment [Auto mated message] The system which ge nerated this result transmit kuldip reference range : <=65. The reference range was not used to interpr et this result as abiodun l/abnormal. [facility] OBYMC1308-55-22 11:10:00 Test Item Value Reference Range Interpretation Comments Bili Total (test code = Bili Total) 0.4 0.2-1.3 [facility] [id number] 11:10:00 Test Item Value Reference Range Interpretation Comments Calcium Lvl (test code = Calcium Lvl) 9.4 8.5-10.5 [facility] [id number] 11:10:00 Test Item Value Reference Range Interpretation Comments B/C Ratio (test code = B/C Ratio) 13 6-25 [facility] [id number] 11:10:00 Test Item Value Reference Range Interpretation Comments AGAP (test code = AGAP) 15.2 10.0-20.0 [facility]2016-01-14 11:10:00 Test Item Value Reference Range Interpretation Comments CO2 (test code = CO2) 21 24-32 [facility]2016-01-14 11:10:00 Test Item Value Reference Range Interpretation Comments A/G Ratio (test code = A/G Ratio) 0.5 0.7-1.6 [facility]2016-01-14 11:10:00 Test Item Value Reference Range Interpretation Comments Globulin (test code = Globulin) 5.0 2.0-4.0 [facility]2016-01-14 11:10:00 Test Item Value Reference Range Interpretation Comments Total Protein (test code = Total 7.7 6.4-8.4 Protein) [facility]2016-01-14 11:10:00 Test Item Value Reference Range Interpretation Comments Albumin Lvl (test code = Albumin Lvl) 2.7 3.5-5.0 [facility]2016-01-14 11:10:00 Test Item Value Reference Range Interpretation Comments BUN (test code = BUN) 8 7-22 [facility]2016-01-14 11:10:00 Test Item Value Reference Range Interpretation Comments Glucose Lvl (test code = Glucose Lvl) 86 70-99 [facility]2016-01-14 11:10:00 Test Item Value Reference Range Interpretation Comments Creatinine Lvl (test code = Creatinine 0.60 0.50-1.40 Lvl) [facility]2016-01-14 11:10:00 Test Item Value Reference Range Interpretation Comments Sodium Lvl (test code = Sodium Lvl) 138 135-145 [facility]2016-01-14 11:10:00 Test Item Value Reference Range Interpretation Comments Chloride Lvl (test code = Chloride Lvl) 106 95-109 [facility]2016-01-14 11:10:00 Test Item Value Reference Range Interpretation Comments Potassium Lvl (test code = Potassium 4.2 3.5-5.1 Lvl) [facility]MQBMDCAQIB1356-19-41 11:10:00 Test Item Value Reference Range Interpretation Comments Polychrom (test code = Moderate *ABN*(04/08/15 Polychrom) 5:10 AM) [facility] SystemQlrhxhuOOTQVBEMVC1293-05-01 11:10:00 Test Item Value Reference Range Interpretation Comments Microcyte (test code = 2+ *ABN*(04/08/15 Microcyte) 5:10 AM) [facility] SystemXsphzxaNRGPVVOCHZ2785-32-60 11:10:00 Test Item Value Reference Range Interpretation Comments Basophils # (test code 0.0 See_Comment [Aut omated message] The = Basophils #) system which generated this result tra nsmitted reference range : <=0.2. The reference r nilam was not used to int erpret this result as normal/abnormal . [facility] SystemAdzcdeaAYRQBNNVEY9060-20-54 11:10:00 Test Item Value Reference Range Interpretation Comments Plt Morph (test code = Normal (04/08/15 5:10 Plt Morph) AM) [facility] SystemSpgxkupNBOUEOPGSG5797-51-65 11:10:00 Test Item Value Reference Range Interpretation Comments Lymphocytes # (test code = Lymphocytes 1.8 1.0-5.5 #) [facility] SystemNcyhzzyVTEVNPHNAZ0799-36-23 11:10:00 Test Item Value Reference Range Interpretation Comments Segs-Bands # (test code = Segs-Bands #) 3.0 1.5-8.1 [facility] SystemCcivgivPIQLACJSHU8991-21-78 11:10:00 Test Item Value Reference Range Interpretation Comments Monocytes # (test code 0.4 See_Comment [Aut omated message] The = Monocytes #) system which generated this result tra nsmitted reference range : <=0.8. The reference r nilam was not used to int erpret this result as normal/abnormal . [facility] SystemCieyimcHWLEIEPRAZ6984-35-27 11:10:00 Test Item Value Reference Range Interpretation Comments Eosinophils # (test code 0.1 See_Comment [A utomated message] The = Eosinophils #) system whic h generated this result tra nsmitted reference range : <=0.5. The reference r nilam was not used to int erpret this result as normal/abnormal . [facility] SystemAaupppnJKQDHVHJEJ4278-56-72 11:10:00 Test Item Value Reference Range Interpretation Comments Monocytes (test code = Monocytes) 7.0 2.0-12.0 [facility] SystemJlormskOHTMHXAEHN7678-02-91 11:10:00 Test Item Value Reference Range Interpretation Comments Segs (test code = Segs) 56.2 45.0-75.0 [facility] SystemVzyghhkXCTQMDXOIU1276-24-01 11:10:00 Test Item Value Reference Range Interpretation Comments Eosinophils (test code = 2.0 See_Comment [A utomated message] The Eosinophils) system which ge nerated this result tra nsmitted reference range : <=4.0. The reference r nilam was not used to int erpret this result as normal/abnormal . [facility] SystemPdlynitSYATGZKGNA7985-67-79 11:10:00 Test Item Value Reference Range Interpretation Comments Lymphocytes (test code = Lymphocytes) 34.2 20.0-40.0 [facility] SystemIhveieoRSTSSKQVVA9742-60-76 11:10:00 Test Item Value Reference Range Interpretation Comments Basophils (test code = 0.6 See_Comment [Aut omated message] The Basophils) system which ge nerated this result tra nsmitted reference range : <=1.0. The reference r nilam was not used to int erpret this result as normal/abnormal . [facility] SystemGjccqdzJQJIRPVLBD0798-55-75 11:10:00 Test Item Value Reference Range Interpretation Comments MPV (test code = MPV) 8.3 7.4-10.4 [facility] SystemYkkerktQAOYPXGSBE2970-22-44 11:10:00 Test Item Value Reference Range Interpretation Comments Platelet (test code = Platelet) 291 133-450 [facility] SystemWscciihMOXMAUCCAW9884-39-57 11:10:00 Test Item Value Reference Range Interpretation Comments RDW (test code = RDW) 17.7 11.5-14.5 [facility] SystemVxqjbqsQAFTVHPTRT5809-54-00 11:10:00 Test Item Value Reference Range Interpretation Comments MCHC (test code = MCHC) 30.4 32.0-36.0 [facility] SystemWafzudoPATNQXJWOY6387-62-02 11:10:00 Test Item Value Reference Range Interpretation Comments MCH (test code = MCH) 21.9 pg 27.0-31.0 [facility] SystemHbnthziSRVMKFZLCF6421-23-82 11:10:00 Test Item Value Reference Range Interpretation Comments RBC (test code = RBC) 3.99 4.20-5.40 [facility] SystemHgickidCHFJOOGQAY0626-51-25 11:10:00 Test Item Value Reference Range Interpretation Comments WBC (test code = WBC) 5.4 3.7-10.4 [facility] SystemSzinqreNALGOJGQIX2589-74-80 11:10:00 Test Item Value Reference Range Interpretation Comments MCV (test code = MCV) 72.1 80.0-98.0 [facility] SystemMeqvsdnIAEZKOQSWD1642-32-65 11:10:00 Test Item Value Reference Range Interpretation Comments Hgb (test code = Hgb) 8.8 12.0-16.0 [facility] SystemWjgkhpoIVPIZMVXKD4842-90-15 11:10:00 Test Item Value Reference Range Interpretation Comments Hct (test code = Hct) 28.8 36.0-48.0 [facility]eliwOOVVEZ1942-32-78 11:10:00 Test Item Value Reference Range Interpretation Comments CHD Risk (test code = CHD Risk) 3.45 3.90-5.80 [facility] HospitalFanfxbzHDJGKT8137-35-65 11:10:00 Test Item Value Reference Range Interpretation Comments HDL (test code = HDL) 53 [facility] HospitalIwessekIVBDAO0697-49-86 11:10:00 Test Item Value Reference Range Interpretation Comments LDL (Calculated) (test code = LDL 106 (Calculated)) [facility] HospitalXepukigDAADCH6223-17-20 11:10:00 Test Item Value Reference Range Interpretation Comments Trig (test code = Trig) 121 [facility] HospitalZuzqxrcWPLNUH0377-04-30 11:10:00 Test Item Value Reference Range Interpretation Comments Chol (test code = Chol) 183 [facility] HospitalMzzjodwQTBWHO7250-82-25 11:10:00 Test Item Value Reference Range Interpretation Comments VLDL (test code = VLDL) 24 [facility]2016-01-14 02:16:00 Test Item Value Reference Range Interpretation Comments Folate Lvl (test code = Folate Lvl) 17.7 [facility]2016-01-14 02:16:00 Test Item Value Reference Range Interpretation Comments Vitamin B12 Lvl (test code = Vitamin 555 459-2977 B12 Lvl) [facility]2016-01-14 02:16:00 Test Item Value Reference Range Interpretation Comments Ferritin Lvl (test code = Ferritin Lvl) 2 5-204 [facility] SystemOvmbsueQHMJRPAEBP1395-23-59 02:16:00 Test Item Value Reference Range Interpretation Comments Retic Auto (test code = Retic Auto) 1.4 0.5-1.5 [facility]2016-01-14 02:16:00 Test Item Value Reference Range Interpretation Comments Folate Lvl (test code = Folate Lvl) 17.7 [facility] [id number] 02:16:00 Test Item Value Reference Range Interpretation Comments Vitamin B12 Lvl (test code = Vitamin 396 306-6270 B12 Lvl) [facility] [id number] 02:16:00 Test Item Value Reference Range Interpretation Comments Ferritin Lvl (test code = Ferritin Lvl) 2 [facility] SystemQtxftfnSXEMUQKJSF7374-38-10 02:16:00 Test Item Value Reference Range Interpretation Comments Retic Auto (test code = Retic Auto) 1.4 0.5-1.5 [facility] [id number] 02:16:00 Test Item Value Reference Range Interpretation Comments Folate Lvl (test code = Folate Lvl) 17.7 [facility] KTZLO3125-11-16 02:16:00 Test Item Value Reference Range Interpretation Comments Vitamin B12 Lvl (test code = Vitamin 765 248-4038 B12 Lvl) [facility] [id number] 02:16:00 Test Item Value Reference Range Interpretation Comments Ferritin Lvl (test code = Ferritin Lvl) 2 [facility] SystemOwlpwjgDPRPLXGIWT3293-14-14 02:16:00 Test Item Value Reference Range Interpretation Comments Retic Auto (test code = Retic Auto) 1.4 0.5-1.5 [facility] JVILM2697-19-24 02:16:00 Test Item Value Reference Range Interpretation Comments Folate Lvl (test code = Folate Lvl) 17.7 [facility] PRTAY6701-75-18 02:16:00 Test Item Value Reference Range Interpretation Comments Vitamin B12 Lvl (test code = Vitamin [phone] B12 Lvl) [facility] [id number] 02:16:00 Test Item Value Reference Range Interpretation Comments Ferritin Lvl (test code = Ferritin Lvl) 2 [facility] SystemWljicyxGWDMBJKYLH8747-10-31 02:16:00 Test Item Value Reference Range Interpretation Comments Retic Auto (test code = Retic Auto) 1.4 0.5-1.5 [facility] EEEDAYK4713-36-93 23:25:00 Test Item Value Reference Range Interpretation Comments Troponin-I (test code no gt See_Comment [Auto mated message] The = Troponin-I) system which g enerated this result transmit kuldip reference range : <=0.40. The reference r nilam was not used to interpr et this result as abiodun l/abnormal. [facility]2016-01-13 23:25:00 Test Item Value Reference Range Interpretation Comments Total CK (test code = Total CK) 257 191 [facility] [employer]2016-01-13 23:25:00 Test Item Value Reference Range Interpretation Comments CK MB Index (test 0.4 See_Comment [Automate d message] The code = CK MB Index) system w [employer] generated this result transmit kuldip reference range : <=2.5. The reference range was not used to interpr et this result as abiodun l/abnormal. [facility]2016-01-13 23:25:00 Test Item Value Reference Range Interpretation Comments CK MB (test code = CK MB) 1.1 0.5-3.6 [facility] [employer]2016-01-13 23:25:00 Test Item Value Reference Range Interpretation Comments Troponin-I (test code no gt See_Comment [Auto mated message] The = Troponin-I) system which g enerated this result transmit kuldip reference range : <=0.40. The reference r nilam was not used to interpr et this result as abiodun l/abnormal. [facility] [employer]2016-01-13 23:25:00 Test Item Value Reference Range Interpretation Comments Total CK (test code = Total CK) 257 12191 [facility] [employer]2016-01-13 23:25:00 Test Item Value Reference Range Interpretation Comments CK MB Index (test 0.4 See_Comment [Automate d message] The code = CK MB Index) system w [employer] generated this result transmit kuldip reference range : <=2.5. The reference range was not used to interpr et this result as abiodun l/abnormal. [facility]2016-01-13 23:25:00 Test Item Value Reference Range Interpretation Comments CK MB (test code = CK MB) 1.1 0.5-3.6 [facility]2016-01-13 23:25:00 Test Item Value Reference Range Interpretation Comments Troponin-I (test code no gt See_Comment [Auto mated message] The = Troponin-I) system which g enerated this result transmit kuldip reference range : <=0.40. The reference r nilam was not used to interpr et this result as abiodun l/abnormal. [facility] [employer]2016-01-13 23:25:00 Test Item Value Reference Range Interpretation Comments Total CK (test code = Total CK) 257 12-191 [facility] [employer]2016-01-13 23:25:00 Test Item Value Reference Range Interpretation Comments CK MB Index (test 0.4 See_Comment [Automate d message] The code = CK MB Index) system w [employer] generated this result transmit kuldip reference range : <=2.5. The reference range was not used to interpr et this result as abiodun l/abnormal. [facility] [employer]2016-01-13 23:25:00 Test Item Value Reference Range Interpretation Comments CK MB (test code = CK MB) 1.1 0.5-3.6 [facility] [employer]2016-01-13 23:25:00 Test Item Value Reference Range Interpretation Comments Troponin-I (test code no gt See_Comment [Auto mated message] The = Troponin-I) system which g enerated this result transmit kuldip reference range : <=0.40. The reference r nilam was not used to interpr et this result as abiodun l/abnormal. [facility] [employer]2016-01-13 23:25:00 Test Item Value Reference Range Interpretation Comments Total CK (test code = Total CK) 257 12191 [facility] [employer]2016-01-13 23:25:00 Test Item Value Reference Range Interpretation Comments CK MB Index (test 0.4 See_Comment [Automate d message] The code = CK MB Index) system w [employer] generated this result transmit kuldip reference range : <=2.5. The reference range was not used to interpr et this result as abiodun l/abnormal. [facility] [employer]2016-01-13 23:25:00 Test Item Value Reference Range Interpretation Comments CK MB (test code = CK MB) 1.1 0.5-3.6 [facility] [employer]2016-01-13 15:59:00 Test Item Value Reference Range Interpretation Comments Troponin-I (test code no gt See_Comment [Auto mated message] The = Troponin-I) system which g enerated this result transmit kuldip reference range : <=0.40. The reference r nilam was not used to interpr et this result as abiodun l/abnormal. [facility] [id number] 15:59:00 Test Item Value Reference Range Interpretation Comments Troponin-I (test code no gt See_Comment [Auto mated message] The = Troponin-I) system which g enerated this result transmit kuldip reference range : <=0.40. The reference r nilam was not used to interpr et this result as abiodun l/abnormal. [facility] [id number] 15:59:00 Test Item Value Reference Range Interpretation Comments Troponin-I (test code no gt See_Comment [Auto mated message] The = Troponin-I) system which g enerated this result transmit kuldip reference range : <=0.40. The reference r nilam was not used to interpr et this result as abiodun l/abnormal. [facility] [id number] 15:59:00 Test Item Value Reference Range Interpretation Comments Troponin-I (test code no gt See_Comment [Auto mated message] The = Troponin-I) system which g enerated this result transmit kuldip reference range : <=0.40. The reference r nilam was not used to interpr et this result as abiodun l/abnormal. [facility] AND [id number] 14:33:00 Test Item Value Reference Range Interpretation Comments UA Spec Grav (test code = UA Spec 1.020 1 Grav) [facility] AND [id number] 14:33:00 Test Item Value Reference Range Interpretation Comments UA Protein (test code = Trace *ABN*(04/07/15 UA Protein) 8:33 AM) [facility] AND [id number] 14:33:00 Test Item Value Reference Range Interpretation Comments UA pH (test code = UA pH) 6.5 1 5.0-8.0 [facility] AND [id number] 14:33:00 Test Item Value Reference Range Interpretation Comments UA Ketones (test code Negative *NA*(04/07/15 = UA Ketones) 8:33 AM) [facility] AND [id number] 14:33:00 Test Item Value Reference Range Interpretation Comments UA Glucose (test code Negative (04/07/15 8:33 = UA Glucose) AM) [facility] AND [id number] 14:33:00 Test Item Value Reference Range Interpretation Comments UA Bili (test code = Negative *NA*(04/07/15 UA Bili) 8:33 AM) [facility] AND [id number] 14:33:00 Test Item Value Reference Range Interpretation Comments UA Urobilinogen (test code = UA 0.2 0.1-1.0 Urobilinogen) [facility] AND [id number] 14:33:00 Test Item Value Reference Range Interpretation Comments UA Blood (test code = Large *ABN*(04/07/15 UA Blood) 8:33 AM) [facility] AND [id number] 14:33:00 Test Item Value Reference Range Interpretation Comments UA Leuk Est (test Negative (04/07/15 8:33 code = UA Leuk Est) AM) [facility] AND [id number] 14:33:00 Test Item Value Reference Range Interpretation Comments UA Nitrite (test code Negative (04/07/15 8:33 = UA Nitrite) AM) [facility] AND [id number] 14:33:00 Test Item Value Reference Range Interpretation Comments UA Turbidity (test code = Clear (04/07/15 8:33 UA Turbidity) AM) [facility] AND [id number] 14:33:00 Test Item Value Reference Range Interpretation Comments UA Color (test code = Yellow *NA*(04/07/15 UA Color) 8:33 AM) [facility] AND [id number] 14:33:00 Test Item Value Reference Range Interpretation Comments UA Mucus (test code = UA Mucus) Few /LPF [facility] AND [id number] 14:33:00 Test Item Value Reference Range Interpretation Comments UA Bacteria (test code = UA Occasional /HPF Bacteria) [facility] AND [id number] 14:33:00 Test Item Value Reference Range Interpretation Comments UA WBC (test code = UA WBC) 0-2 /HPF [facility] AND [id number] 14:33:00 Test Item Value Reference Range Interpretation Comments UA Sq Epi (test code = UA Sq Epi) Few /LPF [facility] AND [id number] 14:33:00 Test Item Value Reference Range Interpretation Comments Micro? (test code = Performed (04/07/15 8:33 Micro?) AM) [facility] AND [id number] 14:33:00 Test Item Value Reference Range Interpretation Comments UA RBC (test code = 3-5 /HPF See_Comment [Automa kuldip message] The UA RBC) system which ge nerated this result tra nsmitted reference range : <=2. The reference range was not used to interpr et this result as abiodun l/abnormal. [facility] AND [id number] 14:33:00 Test Item Value Reference Range Interpretation Comments UA Spec Grav (test code = UA Spec 1.020 1 Grav) [facility] AND [id number] 14:33:00 Test Item Value Reference Range Interpretation Comments UA Protein (test code = Trace *ABN*(04/07/15 UA Protein) 8:33 AM) [facility] AND [id number] 14:33:00 Test Item Value Reference Range Interpretation Comments UA pH (test code = UA pH) 6.5 1 5.0-8.0 [facility] AND [id number] 14:33:00 Test Item Value Reference Range Interpretation Comments UA Ketones (test code Negative *NA*(04/07/15 = UA Ketones) 8:33 AM) [facility] AND [id number] 14:33:00 Test Item Value Reference Range Interpretation Comments UA Glucose (test code Negative (04/07/15 8:33 = UA Glucose) AM) [facility] AND [id number] 14:33:00 Test Item Value Reference Range Interpretation Comments UA Bili (test code = Negative *NA*(04/07/15 UA Bili) 8:33 AM) [facility] AND [id number] 14:33:00 Test Item Value Reference Range Interpretation Comments UA Urobilinogen (test code = UA 0.2 0.1-1.0 Urobilinogen) [facility] AND [id number] 14:33:00 Test Item Value Reference Range Interpretation Comments UA Blood (test code = Large *ABN*(04/07/15 UA Blood) 8:33 AM) [facility] AND [id number] 14:33:00 Test Item Value Reference Range Interpretation Comments UA Leuk Est (test Negative (04/07/15 8:33 code = UA Leuk Est) AM) [facility] AND [id number] 14:33:00 Test Item Value Reference Range Interpretation Comments UA Nitrite (test code Negative (04/07/15 8:33 = UA Nitrite) AM) [facility] AND [id number] 14:33:00 Test Item Value Reference Range Interpretation Comments UA Turbidity (test code = Clear (04/07/15 8:33 UA Turbidity) AM) [facility] AND [id number] 14:33:00 Test Item Value Reference Range Interpretation Comments UA Color (test code = Yellow *NA*(04/07/15 UA Color) 8:33 AM) [facility] AND [id number] 14:33:00 Test Item Value Reference Range Interpretation Comments UA Mucus (test code = UA Mucus) Few /LPF [facility] AND [id number] 14:33:00 Test Item Value Reference Range Interpretation Comments UA Bacteria (test code = UA Occasional /HPF Bacteria) [facility] AND [id number] 14:33:00 Test Item Value Reference Range Interpretation Comments UA WBC (test code = UA WBC) 0-2 /HPF [facility] AND [id number] 14:33:00 Test Item Value Reference Range Interpretation Comments UA Sq Epi (test code = UA Sq Epi) Few /LPF [facility] AND [id number] 14:33:00 Test Item Value Reference Range Interpretation Comments Micro? (test code = Performed (04/07/15 8:33 Micro?) AM) [facility] AND [id number] 14:33:00 Test Item Value Reference Range Interpretation Comments UA RBC (test code = 3-5 /HPF See_Comment [Automa kuldip message] The UA RBC) system which ge nerated this result tra nsmitted reference range : <=2. The reference range was not used to interpr et this result as abiodun l/abnormal. [facility] AND [id number] 14:33:00 Test Item Value Reference Range Interpretation Comments UA Spec Grav (test code = UA Spec 1.020 1 Grav) [facility] AND [id number] 14:33:00 Test Item Value Reference Range Interpretation Comments UA Protein (test code = Trace *ABN*(04/07/15 UA Protein) 8:33 AM) [facility] AND [id number] 14:33:00 Test Item Value Reference Range Interpretation Comments UA pH (test code = UA pH) 6.5 1 5.0-8.0 [facility] AND [id number] 14:33:00 Test Item Value Reference Range Interpretation Comments UA Ketones (test code Negative *NA*(04/07/15 = UA Ketones) 8:33 AM) [facility] AND [id number] 14:33:00 Test Item Value Reference Range Interpretation Comments UA Glucose (test code Negative (04/07/15 8:33 = UA Glucose) AM) [facility] AND [id number] 14:33:00 Test Item Value Reference Range Interpretation Comments UA Bili (test code = Negative *NA*(04/07/15 UA Bili) 8:33 AM) [facility] AND [id number] 14:33:00 Test Item Value Reference Range Interpretation Comments UA Urobilinogen (test code = UA 0.2 0.1-1.0 Urobilinogen) [facility] AND [id number] 14:33:00 Test Item Value Reference Range Interpretation Comments UA Blood (test code = Large *ABN*(04/07/15 UA Blood) 8:33 AM) [facility] AND [id number] 14:33:00 Test Item Value Reference Range Interpretation Comments UA Leuk Est (test Negative (04/07/15 8:33 code = UA Leuk Est) AM) [facility] AND [id number] 14:33:00 Test Item Value Reference Range Interpretation Comments UA Nitrite (test code Negative (04/07/15 8:33 = UA Nitrite) AM) [facility] AND [id number] 14:33:00 Test Item Value Reference Range Interpretation Comments UA Turbidity (test code = Clear (04/07/15 8:33 UA Turbidity) AM) [facility] AND [id number] 14:33:00 Test Item Value Reference Range Interpretation Comments UA Color (test code = Yellow *NA*(04/07/15 UA Color) 8:33 AM) [facility] AND [id number] 14:33:00 Test Item Value Reference Range Interpretation Comments UA Mucus (test code = UA Mucus) Few /LPF [facility] AND [id number] 14:33:00 Test Item Value Reference Range Interpretation Comments UA Bacteria (test code = UA Occasional /HPF Bacteria) [facility] AND [id number] 14:33:00 Test Item Value Reference Range Interpretation Comments UA WBC (test code = UA WBC) 0-2 /HPF [facility] AND [id number] 14:33:00 Test Item Value Reference Range Interpretation Comments UA Sq Epi (test code = UA Sq Epi) Few /LPF [facility] AND [id number] 14:33:00 Test Item Value Reference Range Interpretation Comments Micro? (test code = Performed (04/07/15 8:33 Micro?) AM) [facility] AND [id number] 14:33:00 Test Item Value Reference Range Interpretation Comments UA RBC (test code = 3-5 /HPF See_Comment [Automa kuldip message] The UA RBC) system which ge nerated this result tra nsmitted reference range : <=2. The reference range was not used to interpr et this result as abiodun l/abnormal. [facility] AND [id number] 14:33:00 Test Item Value Reference Range Interpretation Comments UA Spec Grav (test code = UA Spec 1.020 1 Grav) [facility] AND [id number] 14:33:00 Test Item Value Reference Range Interpretation Comments UA Protein (test code = Trace *ABN*(04/07/15 UA Protein) 8:33 AM) [facility] AND [id number] 14:33:00 Test Item Value Reference Range Interpretation Comments UA pH (test code = UA pH) 6.5 1 5.0-8.0 [facility] AND [id number] 14:33:00 Test Item Value Reference Range Interpretation Comments UA Ketones (test code Negative *NA*(04/07/15 = UA Ketones) 8:33 AM) [facility] AND [id number] 14:33:00 Test Item Value Reference Range Interpretation Comments UA Glucose (test code Negative (04/07/15 8:33 = UA Glucose) AM) [facility] AND [id number] 14:33:00 Test Item Value Reference Range Interpretation Comments UA Bili (test code = Negative *NA*(04/07/15 UA Bili) 8:33 AM) [facility] AND [id number] 14:33:00 Test Item Value Reference Range Interpretation Comments UA Urobilinogen (test code = UA 0.2 0.1-1.0 Urobilinogen) [facility] AND [id number] 14:33:00 Test Item Value Reference Range Interpretation Comments UA Blood (test code = Large *ABN*(04/07/15 UA Blood) 8:33 AM) [facility] AND [id number] 14:33:00 Test Item Value Reference Range Interpretation Comments UA Leuk Est (test Negative (04/07/15 8:33 code = UA Leuk Est) AM) [facility] AND [id number] 14:33:00 Test Item Value Reference Range Interpretation Comments UA Nitrite (test code Negative (04/07/15 8:33 = UA Nitrite) AM) [facility] AND [id number] 14:33:00 Test Item Value Reference Range Interpretation Comments UA Turbidity (test code = Clear (04/07/15 8:33 UA Turbidity) AM) [facility] AND [id number] 14:33:00 Test Item Value Reference Range Interpretation Comments UA Color (test code = Yellow *NA*(04/07/15 UA Color) 8:33 AM) [facility] AND [id number] 14:33:00 Test Item Value Reference Range Interpretation Comments UA Mucus (test code = UA Mucus) Few /LPF [facility] AND [id number] 14:33:00 Test Item Value Reference Range Interpretation Comments UA Bacteria (test code = UA Occasional /HPF Bacteria) [facility] AND [id number] 14:33:00 Test Item Value Reference Range Interpretation Comments UA WBC (test code = UA WBC) 0-2 /HPF [facility] [id number] 14:33:00 Test Item Value Reference Range Interpretation Comments UA Sq Epi (test code = UA Sq Epi) Few /LPF [facility] [id number] 14:33:00 Test Item Value Reference Range Interpretation Comments Micro? (test code = Performed (04/07/15 8:33 Micro?) AM) [facility] [id number] 14:33:00 Test Item Value Reference Range Interpretation Comments UA RBC (test code = 3-5 /HPF See_Comment [Automa kuldip message] The UA RBC) system which ge nerated this result tra nsmitted reference range : <=2. The reference range was not used to interpr et this result as abiodun l/abnormal. [facility] [id number] 13:28:00 Test Item Value Reference Range Interpretation Comments Troponin-I (test code no gt See_Comment [Auto mated message] The = Troponin-I) system which g enerated this result transmit kuldip reference range : <=0.40. The reference r nilam was not used to interpr et this result as abiodun l/abnormal. [facility] [employer]ARDIAC [id number] 13:28:00 Test Item Value Reference Range Interpretation Comments BNP (test code = BNP) 45 [facility] [id number] 13:28:00 Test Item Value Reference Range Interpretation Comments CK MB (test code = CK MB) 1.2 0.5-3.6 [facility] [id number] 13:28:00 Test Item Value Reference Range Interpretation Comments Total CK (test code = Total CK) 219 12-191 [facility] [id number] 13:28:00 Test Item Value Reference Range Interpretation Comments CK MB Index (test 0.5 See_Comment [Automate d message] The code = CK MB Index) system w [facility] generated this result transmit kuldip reference range : <=2.5. The reference range was not used to interpr et this result as abiodun l/abnormal. [facility] [id number] 13:28:00 Test Item Value Reference Range Interpretation Comments eGFR (test code = eGFR) 115 [facility]2016-01-13 13:28:00 Test Item Value Reference Range Interpretation Comments AGAP (test code = AGAP) 15.0 10.0-20.0 [place] 222466-01-13 13:28:00 Test Item Value Reference Range Interpretation Comments Bili Total (test code = Bili Total) 0.2 0.2-1.3 [place] 222466-01-13 13:28:00 Test Item Value Reference Range Interpretation Comments A/G Ratio (test code = A/G Ratio) 0.6 0.7-1.6 [place] 222466-01-13 13:28:00 Test Item Value Reference Range Interpretation Comments Globulin (test code = Globulin) 5.4 2.0-4.0 [facility]2016-01-13 13:28:00 Test Item Value Reference Range Interpretation Comments B/C Ratio (test code = B/C Ratio) 12 6-25 [facility]2016-01-13 13:28:00 Test Item Value Reference Range Interpretation Comments Alk Phos (test code = Alk Phos) 107 39-136 [facility]2016-01-13 13:28:00 Test Item Value Reference Range Interpretation Comments ALT (test code = ALT) 24 See_Comment [Auto mated message] The system which ge nerated this result transmit kuldip reference range : <=65. The reference range was not used to interpr et this result as abiodun l/abnormal. [facility]2016-01-13 13:28:00 Test Item Value Reference Range Interpretation Comments AST (test code = AST) 19 See_Comment [Auto mated message] The system which ge nerated this result transmit kuldip reference range : <=37. The reference range was not used to interpr et this result as abiodun l/abnormal. [place] 222466-01-13 13:28:00 Test Item Value Reference Range Interpretation Comments CO2 (test code = CO2) 24 24-32 [place] 222466-01-13 13:28:00 Test Item Value Reference Range Interpretation Comments Calcium Lvl (test code = Calcium Lvl) 9.5 8.5-10.5 [facility]2016-01-13 13:28:00 Test Item Value Reference Range Interpretation Comments Total Protein (test code = Total 8.4 6.4-8.4 Protein) [place] 222466-01-13 13:28:00 Test Item Value Reference Range Interpretation Comments BUN (test code = BUN) 9 7-22 [place] 222466-01-13 13:28:00 Test Item Value Reference Range Interpretation Comments Albumin Lvl (test code = Albumin Lvl) 3.0 3.5-5.0 [place] 222466-01-13 13:28:00 Test Item Value Reference Range Interpretation Comments Creatinine Lvl (test code = Creatinine 0.75 0.50-1.40 Lvl) [facility]2016-01-13 13:28:00 Test Item Value Reference Range Interpretation Comments Sodium Lvl (test code = Sodium Lvl) 139 135-145 [place] 222466-01-13 13:28:00 Test Item Value Reference Range Interpretation Comments Potassium Lvl (test code = Potassium 4.0 3.5-5.1 Lvl) [facility]2016-01-13 13:28:00 Test Item Value Reference Range Interpretation Comments Chloride Lvl (test code = Chloride Lvl) 104 95-109 [facility]2016-01-13 13:28:00 Test Item Value Reference Range Interpretation Comments Glucose Lvl (test code = Glucose Lvl) 118 70-99 [id number] 13:28:00 Test Item Value Reference Range Interpretation Comments Hgb (test code = Hgb) 9.2 12.0-16.0 [facility] [id number] 13:28:00 Test Item Value Reference Range Interpretation Comments MCV (test code = MCV) 71.0 80.0-98.0 [place] 826626-01-13 13:28:00 Test Item Value Reference Range Interpretation Comments MCH (test code = MCH) 21.4 pg 27.0-31.0 [facility] SystemVhsqogxMHQKGWIJJL0179-81-81 13:28:00 Test Item Value Reference Range Interpretation Comments Platelet (test code = Platelet) 280 133-450 [facility] S[id number] 13:28:00 Test Item Value Reference Range Interpretation Comments MPV (test code = MPV) 8.0 7.4-10.4 [facility] SystemBzvydivQRXEBSMTXC8106-50-96 13:28:00 Test Item Value Reference Range Interpretation Comments RDW (test code = RDW) 18.0 11.5-14.5 [facility] SystemDnqszhmRRUFBOLVDF6381-77-68 13:28:00 Test Item Value Reference Range Interpretation Comments MCHC (test code = MCHC) 30.1 32.0-36.0 [facility] SystemEqksvekWQKCUGLARD8461-96-63 13:28:00 Test Item Value Reference Range Interpretation Comments WBC (test code = WBC) 9.0 3.7-10.4 [facility] SystemScsaqsoYHPLIMEDBH2534-56-02 13:28:00 Test Item Value Reference Range Interpretation Comments RBC (test code = RBC) 4.30 4.20-5.40 [facility] SystemYrmotebIXBUMCVCGM4866-09-73 13:28:00 Test Item Value Reference Range Interpretation Comments Hct (test code = Hct) 30.5 36.0-48.0 [facility] SystemBhqnforVZGLDHJRYB6360-11-30 13:28:00 Test Item Value Reference Range Interpretation Comments Segs (test code = Segs) 84.7 45.0-75.0 [facility] SystemHrriszrHDGCSAPFEQ2811-81-03 13:28:00 Test Item Value Reference Range Interpretation Comments Lymphocytes (test code = Lymphocytes) 9.4 20.0-40.0 [facility] SystemVvqsfyzOPWULSICDR0981-52-59 13:28:00 Test Item Value Reference Range Interpretation Comments Eosinophils # (test code 0.0 See_Comment [A utomated message] The = Eosinophils #) system [facility] h generated this result tra nsmitted reference range : <=0.5. The reference r nilam was not used to int erpret this result as normal/abnormal . [facility] SystemAhohztiYXHYJTNDBD9485-50-42 13:28:00 Test Item Value Reference Range Interpretation Comments Lymphocytes # (test code = Lymphocytes 0.8 1.0-5.5 #) [facility] SystemMitonwwTPTTBZITPF5370-16-26 13:28:00 Test Item Value Reference Range Interpretation Comments Monocytes # (test code 0.5 See_Comment [Aut omated message] The = Monocytes #) system which generated this result tra nsmitted reference range : <=0.8. The reference r nilam was not used to int erpret this result as normal/abnormal . [facility] SystemEtekuzfKTKKAYWAUC9396-60-76 13:28:00 Test Item Value Reference Range Interpretation Comments Segs-Bands # (test code = Segs-Bands #) 7.6 1.5-8.1 [facility]KmcbaqaJROECLWBVV8500-82-16 13:28:00 Test Item Value Reference Range Interpretation Comments Monocytes (test code = Monocytes) 5.4 2.0-12.0 [facility]nzijtjVTMZSMXKWS7719-69-17 13:28:00 Test Item Value Reference Range Interpretation Comments Eosinophils (test code = 0.3 See_Comment [A utomated message] The Eosinophils) system which ge nerated this result tra nsmitted reference range : <=4.0. The reference r nilam was not used to int erpret this result as normal/abnormal . [facility]HgzxwtnUJFSNXSGIB4398-07-72 13:28:00 Test Item Value Reference Range Interpretation Comments Basophils (test code = 0.2 See_Comment [Aut omated message] The Basophils) system which ge nerated this result tra nsmitted reference range : <=1.0. The reference r nilam was not used to int erpret this result as normal/abnormal . [facility] CenterIzvhpntHOPXGUAWPV3985-76-36 13:28:00 Test Item Value Reference Range Interpretation Comments Basophils # (test code 0.0 See_Comment [Aut omated message] The = Basophils #) system which generated this result tra nsmitted reference range : <=0.2. The reference r nilam was not used to int erpret this result as normal/abnormal . [facility] 13:28:00 Test Item Value Reference Range Interpretation Comments Troponin-I (test code no gt See_Comment [Auto mated message] The = Troponin-I) system which g enerated this result transmit kuldip reference range : <=0.40. The reference r nilam was not used to interpr et this result as abiodun l/abnormal. [facility] 13:28:00 Test Item Value Reference Range Interpretation Comments BNP (test code = BNP) 45 [facility] 13:28:00 Test Item Value Reference Range Interpretation Comments CK MB (test code = CK MB) 1.2 0.5-3.6 [facility] 13:28:00 Test Item Value Reference Range Interpretation Comments Total CK (test code = Total CK) 219 12-191 [facility]ann[facility] [id number] 13:28:00 Test Item Value Reference Range Interpretation Comments CK MB Index (test 0.5 See_Comment [Automate d message] The code = CK MB Index) system w [employer] generated this result transmit kuldip reference range : <=2.5. The reference range was not used to interpr et this result as abiodun l/abnormal. [facility] [place] [id number] 13:28:00 Test Item Value Reference Range Interpretation Comments eGFR (test code = eGFR) 115 [facility] [id number] 13:28:00 Test Item Value Reference Range Interpretation Comments AGAP (test code = AGAP) 15.0 10.0-20.0 [facility] [id number] 13:28:00 Test Item Value Reference Range Interpretation Comments Bili Total (test code = Bili Total) 0.2 0.2-1.3 [facility] [id number] 13:28:00 Test Item Value Reference Range Interpretation Comments A/G Ratio (test code = A/G Ratio) 0.6 0.7-1.6 [facility] [id number] 13:28:00 Test Item Value Reference Range Interpretation Comments Globulin (test code = Globulin) 5.4 2.0-4.0 [facility] [id number] 13:28:00 Test Item Value Reference Range Interpretation Comments B/C Ratio (test code = B/C Ratio) 12 6-25 [facility] [id number] 13:28:00 Test Item Value Reference Range Interpretation Comments Alk Phos (test code = Alk Phos) 107 39-136 [facility] [id number] 13:28:00 Test Item Value Reference Range Interpretation Comments ALT (test code = ALT) 24 See_Comment [Auto mated message] The system which ge nerated this result transmit kuldip reference range : <=65. The reference range was not used to interpr et this result as abiodun l/abnormal. [facility] [place] [id number] 13:28:00 Test Item Value Reference Range Interpretation Comments AST (test code = AST) 19 See_Comment [Auto mated message] The system which ge nerated this result transmit kuldip reference range : <=37. The reference range was not used to interpr et this result as abiodun l/abnormal. [facility]2016-01-13 13:28:00 Test Item Value Reference Range Interpretation Comments CO2 (test code = CO2) 24 24-32 [place] 222466-01-13 13:28:00 Test Item Value Reference Range Interpretation Comments Calcium Lvl (test code = Calcium Lvl) 9.5 8.5-10.5 [place] 222466-01-13 13:28:00 Test Item Value Reference Range Interpretation Comments Total Protein (test code = Total 8.4 6.4-8.4 Protein) [facility]2016-01-13 13:28:00 Test Item Value Reference Range Interpretation Comments BUN (test code = BUN) 9 7-22 [facility]2016-01-13 13:28:00 Test Item Value Reference Range Interpretation Comments Albumin Lvl (test code = Albumin Lvl) 3.0 3.5-5.0 [facility]2016-01-13 13:28:00 Test Item Value Reference Range Interpretation Comments Creatinine Lvl (test code = Creatinine 0.75 0.50-1.40 Lvl) [facility]2016-01-13 13:28:00 Test Item Value Reference Range Interpretation Comments Sodium Lvl (test code = Sodium Lvl) 139 135-145 [facility]2016-01-13 13:28:00 Test Item Value Reference Range Interpretation Comments Potassium Lvl (test code = Potassium 4.0 3.5-5.1 Lvl) [facility]2016-01-13 13:28:00 Test Item Value Reference Range Interpretation Comments Chloride Lvl (test code = Chloride Lvl) 104 95-109 [facility]2016-01-13 13:28:00 Test Item Value Reference Range Interpretation Comments Glucose Lvl (test code = Glucose Lvl) 118 70-99 [facility] SystemPgvrpmmJTGNEUWWMQ3558-79-04 13:28:00 Test Item Value Reference Range Interpretation Comments Hgb (test code = Hgb) 9.2 12.0-16.0 [facility] SystemZxcunlgFPBFBKLMNT2417-64-20 13:28:00 Test Item Value Reference Range Interpretation Comments MCV (test code = MCV) 71.0 80.0-98.0 [facility] SystemNuemdbxHPWDCXCADZ1092-90-77 13:28:00 Test Item Value Reference Range Interpretation Comments MCH (test code = MCH) 21.4 pg 27.0-31.0 [facility] SystemPlpayrmYVOWWVXQMT4090-62-90 13:28:00 Test Item Value Reference Range Interpretation Comments Platelet (test code = Platelet) 280 133-450 [facility] SystemRyhdhckYEKXSLGDJV2202-55-41 13:28:00 Test Item Value Reference Range Interpretation Comments MPV (test code = MPV) 8.0 7.4-10.4 [facility] SystemBkuwbswSAEMNGJFJY1254-87-78 13:28:00 Test Item Value Reference Range Interpretation Comments RDW (test code = RDW) 18.0 11.5-14.5 [facility] SystemFwnrjodNMDLELOFBS4413-63-65 13:28:00 Test Item Value Reference Range Interpretation Comments MCHC (test code = MCHC) 30.1 32.0-36.0 [facility] SystemUuaaxqhYBHCAAKPTJ5146-78-62 13:28:00 Test Item Value Reference Range Interpretation Comments WBC (test code = WBC) 9.0 3.7-10.4 [facility] SystemKqkabunYRPNKKLETJ0267-23-30 13:28:00 Test Item Value Reference Range Interpretation Comments RBC (test code = RBC) 4.30 4.20-5.40 [facility] SystemCvekwfkFPWIBWJXQF8611-03-55 13:28:00 Test Item Value Reference Range Interpretation Comments Hct (test code = Hct) 30.5 36.0-48.0 [facility] SystemKgfkhkeKRXXEJLLGY6240-92-65 13:28:00 Test Item Value Reference Range Interpretation Comments Segs (test code = Segs) 84.7 45.0-75.0 [facility] SystemXnfhbpoFENPMSIVKP3813-50-15 13:28:00 Test Item Value Reference Range Interpretation Comments Lymphocytes (test code = Lymphocytes) 9.4 20.0-40.0 [facility] SystemZsicqdaXWPBFXXZNP3739-84-03 13:28:00 Test Item Value Reference Range Interpretation Comments Eosinophils # (test code 0.0 See_Comment [A utomated message] The = Eosinophils #) system [facility] h generated this result tra nsmitted reference range : <=0.5. The reference r nilam was not used to int erpret this result as normal/abnormal . [facility] SystemObzepngTYOLPWPEYB3238-18-61 13:28:00 Test Item Value Reference Range Interpretation Comments Lymphocytes # (test code = Lymphocytes 0.8 1.0-5.5 #) [facility] SystemGdeyrmuGEROJSVYGL7512-82-48 13:28:00 Test Item Value Reference Range Interpretation Comments Monocytes # (test code 0.5 See_Comment [Aut omated message] The = Monocytes #) system which generated this result tra nsmitted reference range : <=0.8. The reference r nilam was not used to int erpret this result as normal/abnormal . [facility] SystemGpqtdsyLQVSTCZBYI0779-01-87 13:28:00 Test Item Value Reference Range Interpretation Comments Segs-Bands # (test code = Segs-Bands #) 7.6 1.5-8.1 [facility] SystemTqedfauRIWFVSKGPN2352-40-03 13:28:00 Test Item Value Reference Range Interpretation Comments Monocytes (test code = Monocytes) 5.4 2.0-12.0 [facility] SystemIzbeunvCRTYIHOODB2592-72-10 13:28:00 Test Item Value Reference Range Interpretation Comments Eosinophils (test code = 0.3 See_Comment [A utomated message] The Eosinophils) system which ge nerated this result tra nsmitted reference range : <=4.0. The reference r nilam was not used to int erpret this result as normal/abnormal . [facility] SystemLwwbdjiHKFZBOAUKZ1743-03-17 13:28:00 Test Item Value Reference Range Interpretation Comments Basophils (test code = 0.2 See_Comment [Aut omated message] The Basophils) system which ge nerated this result tra nsmitted reference range : <=1.0. The reference r nilam was not used to int erpret this result as normal/abnormal . [facility] SystemWifafmlVKBNVIREFD4016-67-84 13:28:00 Test Item Value Reference Range Interpretation Comments Basophils # (test code 0.0 See_Comment [Aut omated message] The = Basophils #) system which generated this result tra nsmitted reference range : <=0.2. The reference r nilam was not used to int erpret this result as normal/abnormal . [facility] [id number] 13:28:00 Test Item Value Reference Range Interpretation Comments Troponin-I (test code no gt See_Comment [Auto mated message] The = Troponin-I) system which g enerated this result transmit kuldip reference range : <=0.40. The reference r nilam was not used to interpr et this result as abiodun l/abnormal. [facility] [employer] [id number] 13:28:00 Test Item Value Reference Range Interpretation Comments BNP (test code = BNP) 45 [facility] SignatureannF[facility] NationAC LACKIFT1721-06-72 13:28:00 Test Item Value Reference Range Interpretation Comments CK MB (test code = CK MB) 1.2 0.5-3.6 [facility] [employer] [id number] 13:28:00 Test Item Value Reference Range Interpretation Comments Total CK (test code = Total CK) 219 12-191 [facility] [employer] [id number] 13:28:00 Test Item Value Reference Range Interpretation Comments CK MB Index (test 0.5 See_Comment [Automate d message] The code = CK MB Index) system w [facility] generated this result transmit kuldip reference range : <=2.5. The reference range was not used to interpr et this result as abiodun l/abnormal. [employer] [id number] 13:28:00 Test Item Value Reference Range Interpretation Comments eGFR (test code = eGFR) 115 [facility] [place] [id number] 13:28:00 Test Item Value Reference Range Interpretation Comments AGAP (test code = AGAP) 15.0 10.0-20.0 [facility] [employer]2016-01-13 13:28:00 Test Item Value Reference Range Interpretation Comments Bili Total (test code = Bili Total) 0.2 0.2-1.3 [facility] [place] [id number] 13:28:00 Test Item Value Reference Range Interpretation Comments A/G Ratio (test code = A/G Ratio) 0.6 0.7-1.6 [facility] [place] [id number] 13:28:00 Test Item Value Reference Range Interpretation Comments Globulin (test code = Globulin) 5.4 2.0-4.0 [facility] [place] [id number] 13:28:00 Test Item Value Reference Range Interpretation Comments B/C Ratio (test code = B/C Ratio) 12 6-25 [facility]2016-01-13 13:28:00 Test Item Value Reference Range Interpretation Comments Alk Phos (test code = Alk Phos) 107 39-136 [facility]2016-01-13 13:28:00 Test Item Value Reference Range Interpretation Comments ALT (test code = ALT) 24 See_Comment [Auto mated message] The system which ge nerated this result transmit kulidp reference range : <=65. The reference range was not used to interpr et this result as abiodun l/abnormal. [facility]2016-01-13 13:28:00 Test Item Value Reference Range Interpretation Comments AST (test code = AST) 19 See_Comment [Auto mated message] The system which ge nerated this result transmit kuldip reference range : <=37. The reference range was not used to interpr et this result as abiodun l/abnormal. [place] 222466-01-13 13:28:00 Test Item Value Reference Range Interpretation Comments CO2 (test code = CO2) 24 24-32 [facility]2016-01-13 13:28:00 Test Item Value Reference Range Interpretation Comments Calcium Lvl (test code = Calcium Lvl) 9.5 8.5-10.5 [facility]2016-01-13 13:28:00 Test Item Value Reference Range Interpretation Comments Total Protein (test code = Total 8.4 6.4-8.4 Protein) [facility]2016-01-13 13:28:00 Test Item Value Reference Range Interpretation Comments BUN (test code = BUN) 9 7-22 [facility]2016-01-13 13:28:00 Test Item Value Reference Range Interpretation Comments Albumin Lvl (test code = Albumin Lvl) 3.0 3.5-5.0 [facility]2016-01-13 13:28:00 Test Item Value Reference Range Interpretation Comments Creatinine Lvl (test code = Creatinine 0.75 0.50-1.40 Lvl) [facility]2016-01-13 13:28:00 Test Item Value Reference Range Interpretation Comments Sodium Lvl (test code = Sodium Lvl) 139 135-145 [facility]2016-01-13 13:28:00 Test Item Value Reference Range Interpretation Comments Potassium Lvl (test code = Potassium 4.0 3.5-5.1 Lvl) [facility]2016-01-13 13:28:00 Test Item Value Reference Range Interpretation Comments Chloride Lvl (test code = Chloride Lvl) 104 95-109 [facility]2016-01-13 13:28:00 Test Item Value Reference Range Interpretation Comments Glucose Lvl (test code = Glucose Lvl) 118 70-99 [facility] SystemWfamvkfMMZMIJZORQ4766-19-85 13:28:00 Test Item Value Reference Range Interpretation Comments Hgb (test code = Hgb) 9.2 12.0-16.0 [facility] SystemCdpxnewMYHBZSDSQN2844-93-02 13:28:00 Test Item Value Reference Range Interpretation Comments MCV (test code = MCV) 71.0 80.0-98.0 [facility] SystemVhjciyoNYGEPKCFZT3604-99-69 13:28:00 Test Item Value Reference Range Interpretation Comments MCH (test code = MCH) 21.4 pg 27.0-31.0 [facility] SystemLwuciqjRYIFFVZWOL7346-98-47 13:28:00 Test Item Value Reference Range Interpretation Comments Platelet (test code = Platelet) 280 133-450 [facility] SystemMoumzopRALTBFVYOK2766-39-00 13:28:00 Test Item Value Reference Range Interpretation Comments MPV (test code = MPV) 8.0 7.4-10.4 [facility] SystemOsabsfbCTYZAEOKCU2952-25-74 13:28:00 Test Item Value Reference Range Interpretation Comments RDW (test code = RDW) 18.0 11.5-14.5 [facility] SystemByuewunVUANIHHIZJ8882-67-92 13:28:00 Test Item Value Reference Range Interpretation Comments MCHC (test code = MCHC) 30.1 32.0-36.0 [facility] SystemBqwyhiwWMZSCEVRLF0348-57-86 13:28:00 Test Item Value Reference Range Interpretation Comments WBC (test code = WBC) 9.0 3.7-10.4 [facility] SystemOlmhgbcIEDKLTIOIE9620-55-69 13:28:00 Test Item Value Reference Range Interpretation Comments RBC (test code = RBC) 4.30 4.20-5.40 [facility] SystemJysezyrAMGTRIHMFM2481-05-05 13:28:00 Test Item Value Reference Range Interpretation Comments Hct (test code = Hct) 30.5 36.0-48.0 [facility] SystemCkqzjemMUFVSUKIFU9525-61-52 13:28:00 Test Item Value Reference Range Interpretation Comments Segs (test code = Segs) 84.7 45.0-75.0 [facility] SystemBcxnvuvAUNCHAXYNB5296-79-76 13:28:00 Test Item Value Reference Range Interpretation Comments Lymphocytes (test code = Lymphocytes) 9.4 20.0-40.0 [facility] SystemKpblgeiVOWBYJPVSA5546-11-81 13:28:00 Test Item Value Reference Range Interpretation Comments Eosinophils # (test code 0.0 See_Comment [A utomated message] The = Eosinophils #) system whic h generated this result tra nsmitted reference range : <=0.5. The reference r nilam was not used to int erpret this result as normal/abnormal . [facility] SystemJcsjlaxFFKQBLSFZB3906-10-86 13:28:00 Test Item Value Reference Range Interpretation Comments Lymphocytes # (test code = Lymphocytes 0.8 1.0-5.5 #) [facility] SystemMtbythtYSCCJGEXEJ0502-81-12 13:28:00 Test Item Value Reference Range Interpretation Comments Monocytes # (test code 0.5 See_Comment [Aut omated message] The = Monocytes #) system which generated this result tra nsmitted reference range : <=0.8. The reference r nilam was not used to int erpret this result as normal/abnormal . [facility] SystemHuftyafIHUEWUMEDR9675-52-81 13:28:00 Test Item Value Reference Range Interpretation Comments Segs-Bands # (test code = Segs-Bands #) 7.6 1.5-8.1 [facility] SystemEovdpyhTJDADHYBLH3782-90-68 13:28:00 Test Item Value Reference Range Interpretation Comments Monocytes (test code = Monocytes) 5.4 2.0-12.0 [facility] SystemSkfnxuhJLINQOPQPM9369-62-52 13:28:00 Test Item Value Reference Range Interpretation Comments Eosinophils (test code = 0.3 See_Comment [A utomated message] The Eosinophils) system which ge nerated this result tra nsmitted reference range : <=4.0. The reference r nilam was not used to int erpret this result as normal/abnormal . [facility] SystemVrfuohoRLRGINXBJR7764-49-12 13:28:00 Test Item Value Reference Range Interpretation Comments Basophils (test code = 0.2 See_Comment [Aut omated message] The Basophils) system which ge nerated this result tra nsmitted reference range : <=1.0. The reference r nilam was not used to int erpret this result as normal/abnormal . [facility] SrjwmebMQKNXRYHNO6017-13-34 13:28:00 Test Item Value Reference Range Interpretation Comments Basophils # (test code 0.0 See_Comment [Aut omated message] The = Basophils #) system which generated this result tra nsmitted reference range : <=0.2. The reference r nilam was not used to int erpret this result as normal/abnormal . [facility] SignatureannCARDIAC URGLQIJ0815-10-14 13:28:00 Test Item Value Reference Range Interpretation Comments Troponin-I (test code no gt See_Comment [Auto mated message] The = Troponin-I) system which g enerated this result transmit kuldip reference range : <=0.40. The reference r nilam was not used to interpr et this result as abiodun l/abnormal. [facility] [employer] CAAPDQM3413-74-57 13:28:00 Test Item Value Reference Range Interpretation Comments BNP (test code = BNP) 45 [facility] [employer]annCAR[employer]AC [id number] 13:28:00 Test Item Value Reference Range Interpretation Comments CK MB (test code = CK MB) 1.2 0.5-3.6 [facility] [employer] [id number] 13:28:00 Test Item Value Reference Range Interpretation Comments Total CK (test code = Total CK) 219 12-191 [facility] [employer] [id number] 13:28:00 Test Item Value Reference Range Interpretation Comments CK MB Index (test 0.5 See_Comment [Automate d message] The code = CK MB Index) system w [facility] generated this result transmit kuldip reference range : <=2.5. The reference range was not used to interpr et this result as abiodun l/abnormal. [employer] [id number] 13:28:00 Test Item Value Reference Range Interpretation Comments eGFR (test code = eGFR) 115 [facility] [place] [id number] 13:28:00 Test Item Value Reference Range Interpretation Comments AGAP (test code = AGAP) 15.0 10.0-20.0 [facility] [place] [id number] 13:28:00 Test Item Value Reference Range Interpretation Comments Bili Total (test code = Bili Total) 0.2 0.2-1.3 [place] 222466-01-13 13:28:00 Test Item Value Reference Range Interpretation Comments A/G Ratio (test code = A/G Ratio) 0.6 0.7-1.6 [place] 222466-01-13 13:28:00 Test Item Value Reference Range Interpretation Comments Globulin (test code = Globulin) 5.4 2.0-4.0 [place] 222466-01-13 13:28:00 Test Item Value Reference Range Interpretation Comments B/C Ratio (test code = B/C Ratio) 12 6-25 [place] 222466-01-13 13:28:00 Test Item Value Reference Range Interpretation Comments Alk Phos (test code = Alk Phos) 107 39-136 [facility]2016-01-13 13:28:00 Test Item Value Reference Range Interpretation Comments ALT (test code = ALT) 24 See_Comment [Auto mated message] The system which ge nerated this result transmit kuldip reference range : <=65. The reference range was not used to interpr et this result as abiodun l/abnormal. [facility]2016-01-13 13:28:00 Test Item Value Reference Range Interpretation Comments AST (test code = AST) 19 See_Comment [Auto mated message] The system which ge nerated this result transmit kuldip reference range : <=37. The reference range was not used to interpr et this result as abiodun l/abnormal. [facility]2016-01-13 13:28:00 Test Item Value Reference Range Interpretation Comments CO2 (test code = CO2) 24 24-32 [facility]2016-01-13 13:28:00 Test Item Value Reference Range Interpretation Comments Calcium Lvl (test code = Calcium Lvl) 9.5 8.5-10.5 [facility]2016-01-13 13:28:00 Test Item Value Reference Range Interpretation Comments Total Protein (test code = Total 8.4 6.4-8.4 Protein) [facility]2016-01-13 13:28:00 Test Item Value Reference Range Interpretation Comments BUN (test code = BUN) 9 7-22 [place] 222466-01-13 13:28:00 Test Item Value Reference Range Interpretation Comments Albumin Lvl (test code = Albumin Lvl) 3.0 3.5-5.0 [facility]2016-01-13 13:28:00 Test Item Value Reference Range Interpretation Comments Creatinine Lvl (test code = Creatinine 0.75 0.50-1.40 Lvl) [facility]2016-01-13 13:28:00 Test Item Value Reference Range Interpretation Comments Sodium Lvl (test code = Sodium Lvl) 139 135-145 [facility]2016-01-13 13:28:00 Test Item Value Reference Range Interpretation Comments Potassium Lvl (test code = Potassium 4.0 3.5-5.1 Lvl) [facility]2016-01-13 13:28:00 Test Item Value Reference Range Interpretation Comments Chloride Lvl (test code = Chloride Lvl) 104 95-109 [facility]2016-01-13 13:28:00 Test Item Value Reference Range Interpretation Comments Glucose Lvl (test code = Glucose Lvl) 118 70-99 [facility] SystemKvtdccmGUYVFBWOGH1107-41-31 13:28:00 Test Item Value Reference Range Interpretation Comments Hgb (test code = Hgb) 9.2 12.0-16.0 [facility] SystemSypxivzLULZTVFMOV0536-68-22 13:28:00 Test Item Value Reference Range Interpretation Comments MCV (test code = MCV) 71.0 80.0-98.0 [facility] SystemSnvaqzzTCYFIVZSHT4735-03-12 13:28:00 Test Item Value Reference Range Interpretation Comments MCH (test code = MCH) 21.4 pg 27.0-31.0 [facility] SystemAsyixthMMIUBCSUVH9422-19-68 13:28:00 Test Item Value Reference Range Interpretation Comments Platelet (test code = Platelet) 280 133-450 [facility] SystemTuitwefTDBQYRULPG0071-66-00 13:28:00 Test Item Value Reference Range Interpretation Comments MPV (test code = MPV) 8.0 7.4-10.4 [facility] SystemYrmpvrmBDGRROUVCE6250-48-90 13:28:00 Test Item Value Reference Range Interpretation Comments RDW (test code = RDW) 18.0 11.5-14.5 [facility] SystemHdeyicdFQYZDKEIFI3144-16-55 13:28:00 Test Item Value Reference Range Interpretation Comments MCHC (test code = MCHC) 30.1 32.0-36.0 [facility] SystemAcdwghzRQGAGWEYWG7411-29-89 13:28:00 Test Item Value Reference Range Interpretation Comments WBC (test code = WBC) 9.0 3.7-10.4 [facility] SystemAtrmklzSMAYEXKGXW3845-57-61 13:28:00 Test Item Value Reference Range Interpretation Comments RBC (test code = RBC) 4.30 4.20-5.40 [facility] SystemQkrmzulDTPGFWWPGC7684-25-41 13:28:00 Test Item Value Reference Range Interpretation Comments Hct (test code = Hct) 30.5 36.0-48.0 [facility] SystemKkakhpyKFFDORTWUT0072-94-78 13:28:00 Test Item Value Reference Range Interpretation Comments Segs (test code = Segs) 84.7 45.0-75.0 [facility] SystemVmezlzyBOQCSXXCQD6800-80-52 13:28:00 Test Item Value Reference Range Interpretation Comments Lymphocytes (test code = Lymphocytes) 9.4 20.0-40.0 [facility] SystemClkurhuYPUIEDMDKP0149-28-89 13:28:00 Test Item Value Reference Range Interpretation Comments Eosinophils # (test code 0.0 See_Comment [A utomated message] The = Eosinophils #) system whic h generated this result tra nsmitted reference range : <=0.5. The reference r nilam was not used to int erpret this result as normal/abnormal . [facility] SystemSrsvabaHBTHDSOHBF2202-06-94 13:28:00 Test Item Value Reference Range Interpretation Comments Lymphocytes # (test code = Lymphocytes 0.8 1.0-5.5 #) [facility] SystemRfwvdchEBPKZKJKQD7593-38-71 13:28:00 Test Item Value Reference Range Interpretation Comments Monocytes # (test code 0.5 See_Comment [Aut omated message] The = Monocytes #) system which generated this result tra nsmitted reference range : <=0.8. The reference r nilam was not used to int erpret this result as normal/abnormal . [facility] SystemUoygjviLCPRZCQMJG9793-98-35 13:28:00 Test Item Value Reference Range Interpretation Comments Segs-Bands # (test code = Segs-Bands #) 7.6 1.5-8.1 [facility] SystemZujgemoJEXLHRYPXY7658-97-86 13:28:00 Test Item Value Reference Range Interpretation Comments Monocytes (test code = Monocytes) 5.4 2.0-12.0 [facility]SvdykcdLMDRSNGHMY2045-64-81 13:28:00 Test Item Value Reference Range Interpretation Comments Eosinophils (test code = 0.3 See_Comment [A utomated message] The Eosinophils) system which ge nerated this result tra nsmitted reference range : <=4.0. The reference r nilam was not used to int erpret this result as normal/abnormal . [facility]CzikiykEUOXEEYEXP4380-90-06 13:28:00 Test Item Value Reference Range Interpretation Comments Basophils (test code = 0.2 See_Comment [Aut omated message] The Basophils) system which ge nerated this result tra nsmitted reference range : <=1.0. The reference r nilam was not used to int erpret this result as normal/abnormal . [facility] HospitalPcixfeiPURMXOYFUP3876-02-15 13:28:00 Test Item Value Reference Range Interpretation Comments Basophils # (test code 0.0 See_Comment [Aut omated message] The = Basophils #) system which generated this result tra nsmitted reference range : <=0.2. The reference r nilam was not used to int erpret this result as normal/abnormal . [facility] HospitalQuipper[facility] 20:27:00 Test Item Value Reference Range Interpretation Comments CK MB Index (test 0.4 See_Comment [Automate d message] The code = CK MB Index) system w [facility] generated this result transmit kuldip reference range : <=2.5. The reference range was not used to interpr et this result as abiodun l/abnormal. [facility] HospitalGCW HMHQZPY6363-34-86 20:27:00 Test Item Value Reference Range Interpretation Comments CK MB (test code = CK MB) 0.6 0.5-3.6 [facility] CenterProjectSpeaker WOITWCJ9416-04-89 20:27:00 Test Item Value Reference Range Interpretation Comments Troponin-I (test code no gt See_Comment [Auto mated message] The = Troponin-I) system which g enerated this result transmit kuldip reference range : <=0.40. The reference r nilam was not used to interpr et this result as abiodun l/abnormal. [facility] HospitalGCW [id number] 20:27:00 Test Item Value Reference Range Interpretation Comments Total CK (test code = Total CK) 136 12-191 [facility] behaview [id number] 20:27:00 Test Item Value Reference Range Interpretation Comments CK MB Index (test 0.4 See_Comment [Automate d message] The code = CK MB Index) system w [employer] generated this result transmit kuldip reference range : <=2.5. The reference range was not used to interpr et this result as abiodun l/abnormal. [facility] SignatureannCARDIAC SPNEHAX2592-48-99 20:27:00 Test Item Value Reference Range Interpretation Comments CK MB (test code = CK MB) 0.6 0.5-3.6 [facility] SignatureannCARDIAC [id number] 20:27:00 Test Item Value Reference Range Interpretation Comments Troponin-I (test code no gt See_Comment [Auto mated message] The = Troponin-I) system which g enerated this result transmit kuldip reference range : <=0.40. The reference r nilam was not used to interpr et this result as abiodun l/abnormal. [facility] behaview [id number] 20:27:00 Test Item Value Reference Range Interpretation Comments Total CK (test code = Total CK) 136 12-191 [facility] behaview [id number] 20:27:00 Test Item Value Reference Range Interpretation Comments CK MB Index (test 0.4 See_Comment [Automate d message] The code = CK MB Index) system w [employer] generated this result transmit kuldip reference range : <=2.5. The reference range was not used to interpr et this result as abiodun l/abnormal. [facility] [employer] [id number] 20:27:00 Test Item Value Reference Range Interpretation Comments CK MB (test code = CK MB) 0.6 0.5-3.6 [facility] SignatureannCARVisual [employer]AC SXMUQRR7590-09-24 20:27:00 Test Item Value Reference Range Interpretation Comments Troponin-I (test code no gt See_Comment [Auto mated message] The = Troponin-I) system which g enerated this result transmit kuldip reference range : <=0.40. The reference r nilam was not used to interpr et this result as abiodun l/abnormal. [facility] AKYQDVY1943-14-03 20:27:00 Test Item Value Reference Range Interpretation Comments Total CK (test code = Total CK) 136 12-191 [facility] CloudVolumesCARDIAC QKECTSI2824-80-80 20:27:00 Test Item Value Reference Range Interpretation Comments CK MB Index (test 0.4 See_Comment [Automate d message] The code = CK MB Index) [facility] generated this result transmit kuldip reference range : <=2.5. The reference range was not used to interpr et this result as abiodun l/abnormal. [facility] Modern GuildAC VJIKNLL6339-25-18 20:27:00 Test Item Value Reference Range Interpretation Comments CK MB (test code = CK MB) 0.6 0.5-3.6 [facility] HospitalSensewareAC DVCFFWF4619-26-92 20:27:00 Test Item Value Reference Range Interpretation Comments Troponin-I (test code no gt See_Comment [Auto mated message] The = Troponin-I) system which g enerated this result transmit kuldpi reference range : <=0.40. The reference r nilam was not used to interpr et this result as abiodun l/abnormal. [facility] behaview CWQYMQW5174-69-53 20:27:00 Test Item Value Reference Range Interpretation Comments Total CK (test code = Total CK) 136 12-191 [facility] RoicaxuEWDIZKPFINXV8989-64-90 09:19:00 Test Item Value Reference Range Interpretation Comments Potassium Lvl (test code = Potassium 4.4 3.5-5.1 Lvl) [facility] HospitalMyurbhiYMLDHNXWKUXD3704-31-68 09:19:00 Test Item Value Reference Range Interpretation Comments Sodium Lvl (test code = Sodium Lvl) 139 135-145 [facility] HospitalSacwjoaSJNZVNLIGCBT8246-09-94 09:19:00 Test Item Value Reference Range Interpretation Comments Chloride Lvl (test code = Chloride Lvl) 107 95-109 [facility] SncdfsoFNVDTVPOTYSW4670-87-63 09:19:00 Test Item Value Reference Range Interpretation Comments eGFR (test code = eGFR) 107 [facility] HospitalUmtpskuXRHWSTUPXHKU1436-09-03 09:19:00 Test Item Value Reference Range Interpretation Comments CO2 (test code = CO2) 20 24-32 [facility] HospitalCetsytcMVZOGXGVFIZN6458-05-80 09:19:00 Test Item Value Reference Range Interpretation Comments Calcium Lvl (test code = Calcium Lvl) 9.5 8.5-10.5 [facility] HealthVbhfkdhFYCVSABQOLBR0942-10-80 09:19:00 Test Item Value Reference Range Interpretation Comments Total Protein (test code = Total 7.7 6.4-8.4 Protein) [facility] HealthZfxxccfUFNBXEKQTYBF3833-18-09 09:19:00 Test Item Value Reference Range Interpretation Comments Albumin Lvl (test code = Albumin Lvl) 2.9 3.5-5.0 [facility] HealthHoejgayPKSBWKZVZSTV5203-78-62 09:19:00 Test Item Value Reference Range Interpretation Comments ALT (test code = ALT) 21 See_Comment [Auto mated message] The system which ge nerated this result transmit kuldip reference range : <=65. The reference range was not used to interpr et this result as abiodun l/abnormal. [facility] HealthReoxoptDNZFMOHKHVQX7310-26-13 09:19:00 Test Item Value Reference Range Interpretation Comments AST (test code = AST) 27 See_Comment [Auto mated message] The system which ge nerated this result transmit kuldip reference range : <=37. The reference range was not used to interpr et this result as abiodun l/abnormal. [facility] HealthPpnamkkQRGPZHXNUCQJ3300-40-09 09:19:00 Test Item Value Reference Range Interpretation Comments Alk Phos (test code = Alk Phos) 81 39-136 [facility] HealthKgzkqpgPAXTMOTHVGFH6636-54-09 09:19:00 Test Item Value Reference Range Interpretation Comments Bili Total (test code = Bili Total) 0.4 0.2-1.3 [facility] HealthIyvxozwYQDBAANHDZOL9353-95-53 09:19:00 Test Item Value Reference Range Interpretation Comments Creatinine Lvl (test code = Creatinine 0.8 0.5-1.4 Lvl) [facility] HealthKlnklaqXWUZAYKBENWB2014-36-22 09:19:00 Test Item Value Reference Range Interpretation Comments Glucose Lvl (test code = Glucose Lvl) 88 70-99 [facility] HealthPmlgvfjQEGPIGVBXYQJ8775-37-65 09:19:00 Test Item Value Reference Range Interpretation Comments BUN (test code = BUN) 7 7-22 [facility] HealthVimffhnQMEZUFKZAAFJ0266-29-29 09:19:00 Test Item Value Reference Range Interpretation Comments AGAP (test code = AGAP) 16.4 10.0-20.0 [facility] HealthUcggxaoLYLPNUAOBPUJ6093-75-70 09:19:00 Test Item Value Reference Range Interpretation Comments B/C Ratio (test code = B/C Ratio) 9 6-25 [facility] HealthMvaixviNUUDJLHSNFMM9332-42-30 09:19:00 Test Item Value Reference Range Interpretation Comments Globulin (test code = Globulin) 4.8 2.0-4.0 [facility] HealthBcdttqxRGCHQVVEWNIC8350-17-75 09:19:00 Test Item Value Reference Range Interpretation Comments A/G Ratio (test code = A/G Ratio) 0.6 0.7-1.6 [facility] SystemUllrqawLNJEKECNWP3096-08-36 09:19:00 Test Item Value Reference Range Interpretation Comments Segs (test code = Segs) 54.4 45.0-75.0 [facility] SystemSxjulacNAPCFGQXFE9383-16-00 09:19:00 Test Item Value Reference Range Interpretation Comments Lymphocytes (test code = Lymphocytes) 31.6 20.0-40.0 [facility] SystemBjtqwkaBTYKAGEFJZ0529-83-87 09:19:00 Test Item Value Reference Range Interpretation Comments Basophils (test code = 0.9 See_Comment [Aut omated message] The Basophils) system which ge nerated this result tra nsmitted reference range : <=1.0. The reference r nilam was not used to int erpret this result as normal/abnormal . [facility] SystemGqkddckLPZGRVRDQG5546-88-91 09:19:00 Test Item Value Reference Range Interpretation Comments Segs-Bands # (test code = Segs-Bands #) 2.8 1.5-8.1 [facility] SystemJldiocpFWYJVERHWC7719-46-32 09:19:00 Test Item Value Reference Range Interpretation Comments Monocytes (test code = Monocytes) 10.8 2.0-12.0 [facility] SystemKgnukjzMXXOOXZCAJ4088-18-09 09:19:00 Test Item Value Reference Range Interpretation Comments Eosinophils # (test code 0.1 See_Comment [A utomated message] The = Eosinophils #) system whic h generated this result tra nsmitted reference range : <=0.5. The reference r nilam was not used to int erpret this result as normal/abnormal . [facility] SystemJekakiiHQIBZSLDSU8456-95-82 09:19:00 Test Item Value Reference Range Interpretation Comments Eosinophils (test code = 2.3 See_Comment [A utomated message] The Eosinophils) system which ge nerated this result tra nsmitted reference range : <=4.0. The reference r nilam was not used to int erpret this result as normal/abnormal . [facility] SystemRealdmlMMIJALSQCQ4220-73-20 09:19:00 Test Item Value Reference Range Interpretation Comments Microcyte (test code = 3+ *NA*(11/06/14 4:19 Microcyte) AM) [facility] SystemOessfnmTWRRFBMSVE9306-65-84 09:19:00 Test Item Value Reference Range Interpretation Comments Lymphocytes # (test code = Lymphocytes 1.6 1.0-5.5 #) [facility] SystemQctdbilCWECHEPHYD9826-74-92 09:19:00 Test Item Value Reference Range Interpretation Comments Monocytes # (test code 0.6 See_Comment [Aut omated message] The = Monocytes #) system which generated this result tra nsmitted reference range : <=0.8. The reference r nilam was not used to int erpret this result as normal/abnormal . [facility] SystemVeblotgIDIWZHCMGC0283-59-82 09:19:00 Test Item Value Reference Range Interpretation Comments MCHC (test code = MCHC) 30.6 32.0-36.0 [facility] SystemIdvgiqoFGPZFNKFQD2214-73-74 09:19:00 Test Item Value Reference Range Interpretation Comments MPV (test code = MPV) 8.2 7.4-10.4 [facility] SystemJatfocrVNLCUUVSCH3086-97-51 09:19:00 Test Item Value Reference Range Interpretation Comments RDW (test code = RDW) 17.5 11.5-14.5 [facility] SystemQbxbqqsRYITWSINLC0585-41-46 09:19:00 Test Item Value Reference Range Interpretation Comments Platelet (test code = Platelet) 257 133-450 [facility] SystemMyjpxhyFYLMZNQOSQ6110-16-00 09:19:00 Test Item Value Reference Range Interpretation Comments RBC (test code = RBC) 4.00 4.20-5.40 [facility] SystemYdcpbcaTBFZBQMNOL6894-21-32 09:19:00 Test Item Value Reference Range Interpretation Comments Hgb (test code = Hgb) 8.4 12.0-16.0 [facility] SystemPtgwvexCDQKYAIBXK8185-76-19 09:19:00 Test Item Value Reference Range Interpretation Comments MCH (test code = MCH) 21.1 pg 27.0-31.0 [facility] SystemMfcupsuQMYNQBRJWW1859-80-61 09:19:00 Test Item Value Reference Range Interpretation Comments Hct (test code = Hct) 27.6 36.0-48.0 [facility] SystemVbtfzsqNVQBEGVWXS8753-67-34 09:19:00 Test Item Value Reference Range Interpretation Comments MCV (test code = MCV) 68.8 80.0-98.0 [facility] SystemHnvvzmePHUHCJJKWY9867-86-92 09:19:00 Test Item Value Reference Range Interpretation Comments WBC (test code = WBC) 5.1 3.7-10.4 [facility] HealthRdpajrpKERKOPUGCHTJ3943-76-46 09:19:00 Test Item Value Reference Range Interpretation Comments Potassium Lvl (test code = Potassium 4.4 3.5-5.1 Lvl) [facility] HealthPgocjeyWZOKKQIGMQZR9868-58-47 09:19:00 Test Item Value Reference Range Interpretation Comments Sodium Lvl (test code = Sodium Lvl) 139 135-145 [facility] HealthOkwxqvnGGXOOZGGNWCT2311-56-91 09:19:00 Test Item Value Reference Range Interpretation Comments Chloride Lvl (test code = Chloride Lvl) 107 95-109 [facility] HealthZqihnpfSSOWEJNTPVKU9483-99-77 09:19:00 Test Item Value Reference Range Interpretation Comments eGFR (test code = eGFR) 107 [facility] HealthPwhugzfGUSDRWYGNYJI8777-45-58 09:19:00 Test Item Value Reference Range Interpretation Comments CO2 (test code = CO2) 20 24-32 [facility] HealthTiabbhiVAOONGBAOUQB9840-20-11 09:19:00 Test Item Value Reference Range Interpretation Comments Calcium Lvl (test code = Calcium Lvl) 9.5 8.5-10.5 [facility] HealthLrfqyvaCZXFSXHPRWJY3215-50-07 09:19:00 Test Item Value Reference Range Interpretation Comments Total Protein (test code = Total 7.7 6.4-8.4 Protein) [facility] HealthCttndyaRZPFYOEWMPKS1322-60-00 09:19:00 Test Item Value Reference Range Interpretation Comments Albumin Lvl (test code = Albumin Lvl) 2.9 3.5-5.0 [facility] HealthGfjoyagLUQDMNVWNKLO7467-85-22 09:19:00 Test Item Value Reference Range Interpretation Comments ALT (test code = ALT) 21 See_Comment [Auto mated message] The system which ge nerated this result transmit kuldip reference range : <=65. The reference range was not used to interpr et this result as abiodun l/abnormal. [facility] HealthJjlzpnwRQDXTRGUCMRE4867-46-73 09:19:00 Test Item Value Reference Range Interpretation Comments AST (test code = AST) 27 See_Comment [Auto mated message] The system which ge nerated this result transmit kuldip reference range : <=37. The reference range was not used to interpr et this result as abiodun l/abnormal. [facility] HealthIwprmboQWRPAGTBNZHO6765-58-09 09:19:00 Test Item Value Reference Range Interpretation Comments Alk Phos (test code = Alk Phos) 81 39-136 [facility] HealthWhonlvwODTSYSXGWRGV1425-12-56 09:19:00 Test Item Value Reference Range Interpretation Comments Bili Total (test code = Bili Total) 0.4 0.2-1.3 [facility] HealthXdpkjtaMTUUEPVSRNUN9932-36-38 09:19:00 Test Item Value Reference Range Interpretation Comments Creatinine Lvl (test code = Creatinine 0.8 0.5-1.4 Lvl) [facility] HealthIoynrvoZUMQDGTSDRMU4471-41-63 09:19:00 Test Item Value Reference Range Interpretation Comments Glucose Lvl (test code = Glucose Lvl) 88 70-99 [facility] HealthJdlzlgmPDQKVEFBZEZQ5074-42-53 09:19:00 Test Item Value Reference Range Interpretation Comments BUN (test code = BUN) 7 7-22 [facility] HealthAxwvofwDHOJCRWMEGQL1854-23-34 09:19:00 Test Item Value Reference Range Interpretation Comments AGAP (test code = AGAP) 16.4 10.0-20.0 [facility] HealthOvennrqOGOWBNFRVVJR5110-77-55 09:19:00 Test Item Value Reference Range Interpretation Comments B/C Ratio (test code = B/C Ratio) 9 6-25 [facility] HealthLdsqxreIHIUKFNCXSGU4499-20-70 09:19:00 Test Item Value Reference Range Interpretation Comments Globulin (test code = Globulin) 4.8 2.0-4.0 [facility] HealthOcfoluuCKIHFONDQWCY3077-47-06 09:19:00 Test Item Value Reference Range Interpretation Comments A/G Ratio (test code = A/G Ratio) 0.6 0.7-1.6 [facility] SystemHsyjwnbRJOQCKUPPW1323-10-93 09:19:00 Test Item Value Reference Range Interpretation Comments Segs (test code = Segs) 54.4 45.0-75.0 [facility] SystemZwyidmtAOKENGJWAF7610-81-31 09:19:00 Test Item Value Reference Range Interpretation Comments Lymphocytes (test code = Lymphocytes) 31.6 20.0-40.0 [facility] SystemXvdypqlWEOIWGUPWC5631-01-54 09:19:00 Test Item Value Reference Range Interpretation Comments Basophils (test code = 0.9 See_Comment [Aut omated message] The Basophils) system which ge nerated this result tra nsmitted reference range : <=1.0. The reference r nilam was not used to int erpret this result as normal/abnormal . [facility] SystemQolivocGBEEHGGSVT2423-90-88 09:19:00 Test Item Value Reference Range Interpretation Comments Segs-Bands # (test code = Segs-Bands #) 2.8 1.5-8.1 [facility] SystemFrbgakmXSSSRAQZKW4047-43-23 09:19:00 Test Item Value Reference Range Interpretation Comments Monocytes (test code = Monocytes) 10.8 2.0-12.0 [facility] SystemTtoppruGXXVSSTAON0803-75-71 09:19:00 Test Item Value Reference Range Interpretation Comments Eosinophils # (test code 0.1 See_Comment [A utomated message] The = Eosinophils #) system whic h generated this result tra nsmitted reference range : <=0.5. The reference r nilam was not used to int erpret this result as normal/abnormal . [facility] SystemUrzynzhOJSQXRQDEG2262-76-82 09:19:00 Test Item Value Reference Range Interpretation Comments Eosinophils (test code = 2.3 See_Comment [A utomated message] The Eosinophils) system which ge nerated this result tra nsmitted reference range : <=4.0. The reference r nilam was not used to int erpret this result as normal/abnormal . [facility] SystemUxmimoxWETIZENEEC2801-78-12 09:19:00 Test Item Value Reference Range Interpretation Comments Microcyte (test code = 3+ *NA*(11/06/14 4:19 Microcyte) AM) [facility] SystemAjixeufQKVGHQSEVC8007-32-48 09:19:00 Test Item Value Reference Range Interpretation Comments Lymphocytes # (test code = Lymphocytes 1.6 1.0-5.5 #) [facility] SystemJqadhyiPXYBNEXBUJ0050-42-31 09:19:00 Test Item Value Reference Range Interpretation Comments Monocytes # (test code 0.6 See_Comment [Aut omated message] The = Monocytes #) system which generated this result tra nsmitted reference range : <=0.8. The reference r nilam was not used to int erpret this result as normal/abnormal . [facility] SystemFdotckpYLNZFNHTNY5674-59-14 09:19:00 Test Item Value Reference Range Interpretation Comments MCHC (test code = MCHC) 30.6 32.0-36.0 [facility] SystemXwwsgcuEWJUFVEIRY4403-33-90 09:19:00 Test Item Value Reference Range Interpretation Comments MPV (test code = MPV) 8.2 7.4-10.4 [facility] SystemGunqqdoFHLRCISGAC1413-69-04 09:19:00 Test Item Value Reference Range Interpretation Comments RDW (test code = RDW) 17.5 11.5-14.5 [facility] SystemMjhbutaHSHFBWIWMU4168-57-70 09:19:00 Test Item Value Reference Range Interpretation Comments Platelet (test code = Platelet) 257 133-450 [facility] SystemDlatkzsUBLNNVFUCH2113-60-32 09:19:00 Test Item Value Reference Range Interpretation Comments RBC (test code = RBC) 4.00 4.20-5.40 [facility] SystemIqvveemQUVOGFORSV7858-43-34 09:19:00 Test Item Value Reference Range Interpretation Comments Hgb (test code = Hgb) 8.4 12.0-16.0 [facility] SystemEjffaqxTGETMNKHUX2318-93-99 09:19:00 Test Item Value Reference Range Interpretation Comments MCH (test code = MCH) 21.1 pg 27.0-31.0 [facility] SystemIaujrssCSRZQCEJZI1437-93-16 09:19:00 Test Item Value Reference Range Interpretation Comments Hct (test code = Hct) 27.6 36.0-48.0 [facility] SystemKwowmdxIVZMLVDHFX2600-86-30 09:19:00 Test Item Value Reference Range Interpretation Comments MCV (test code = MCV) 68.8 80.0-98.0 [facility] SystemVkblvfoKGNRXXKUYC8276-49-19 09:19:00 Test Item Value Reference Range Interpretation Comments WBC (test code = WBC) 5.1 3.7-10.4 [facility] HealthUqqpvdrTZMUPNYKKWDV1806-49-42 09:19:00 Test Item Value Reference Range Interpretation Comments Potassium Lvl (test code = Potassium 4.4 3.5-5.1 Lvl) [facility] HealthUqttyqgXASGAZVUGKRY6800-19-64 09:19:00 Test Item Value Reference Range Interpretation Comments Sodium Lvl (test code = Sodium Lvl) 139 135-145 [facility] HealthTfzqqkxQJLKTYVACDFE7222-35-96 09:19:00 Test Item Value Reference Range Interpretation Comments Chloride Lvl (test code = Chloride Lvl) 107 95-109 [facility] HealthOyscymzOYBNSBBLMCDD6353-92-79 09:19:00 Test Item Value Reference Range Interpretation Comments eGFR (test code = eGFR) 107 [facility] HealthPbntyusBWSKSNGGHJNQ0684-75-88 09:19:00 Test Item Value Reference Range Interpretation Comments CO2 (test code = CO2) 20 24-32 [facility] HealthSnrpfcmRLHBSRRBFZDK7467-37-16 09:19:00 Test Item Value Reference Range Interpretation Comments Calcium Lvl (test code = Calcium Lvl) 9.5 8.5-10.5 [facility] HealthAnqgrgkDRYSDLIZWTET8121-19-30 09:19:00 Test Item Value Reference Range Interpretation Comments Total Protein (test code = Total 7.7 6.4-8.4 Protein) [facility] HealthNferftbJDCNMDITJICJ5751-18-58 09:19:00 Test Item Value Reference Range Interpretation Comments Albumin Lvl (test code = Albumin Lvl) 2.9 3.5-5.0 [facility] HealthIywzytwSZVKBSJIUIFH0704-43-08 09:19:00 Test Item Value Reference Range Interpretation Comments ALT (test code = ALT) 21 See_Comment [Auto mated message] The system which ge nerated this result transmit kuldip reference range : <=65. The reference range was not used to interpr et this result as abiodun l/abnormal. [facility] HealthGxixajpVAIEITLTSOBR5424-59-70 09:19:00 Test Item Value Reference Range Interpretation Comments AST (test code = AST) 27 See_Comment [Auto mated message] The system which ge nerated this result transmit kuldip reference range : <=37. The reference range was not used to interpr et this result as abiodun l/abnormal. [facility] HealthFveegqeQUMZUGDYNNJU8721-84-16 09:19:00 Test Item Value Reference Range Interpretation Comments Alk Phos (test code = Alk Phos) 81 39-136 [facility] HealthZjrknjqMMCOLXPZMRJK7263-42-54 09:19:00 Test Item Value Reference Range Interpretation Comments Bili Total (test code = Bili Total) 0.4 0.2-1.3 [facility] HealthCunjanaOIWFQQSVJQKL4752-13-24 09:19:00 Test Item Value Reference Range Interpretation Comments Creatinine Lvl (test code = Creatinine 0.8 0.5-1.4 Lvl) [facility] HealthYiqstgcPGMRAWSDQTFS6290-63-03 09:19:00 Test Item Value Reference Range Interpretation Comments Glucose Lvl (test code = Glucose Lvl) 88 70-99 [facility] HealthDzvdgkxNVGROVBLPAWO5324-97-75 09:19:00 Test Item Value Reference Range Interpretation Comments BUN (test code = BUN) 7 7-22 [facility] HealthLeeauqjRVNMYMGXROND3290-76-01 09:19:00 Test Item Value Reference Range Interpretation Comments AGAP (test code = AGAP) 16.4 10.0-20.0 [facility] HealthMmjuqduEPYDAXCCMCWW0251-72-50 09:19:00 Test Item Value Reference Range Interpretation Comments B/C Ratio (test code = B/C Ratio) 9 6-25 [facility] HealthNtgckajNVXVGEWTPYTR4015-15-38 09:19:00 Test Item Value Reference Range Interpretation Comments Globulin (test code = Globulin) 4.8 2.0-4.0 [facility] HealthFnostdjHXDKRIIMHJSY9600-99-27 09:19:00 Test Item Value Reference Range Interpretation Comments A/G Ratio (test code = A/G Ratio) 0.6 0.7-1.6 [facility] SystemPmrwmvrAUXAQBNNEF9263-84-10 09:19:00 Test Item Value Reference Range Interpretation Comments Segs (test code = Segs) 54.4 45.0-75.0 [facility] SystemAhrlrkxHYEURINOMN3430-74-13 09:19:00 Test Item Value Reference Range Interpretation Comments Lymphocytes (test code = Lymphocytes) 31.6 20.0-40.0 [facility] SystemSotqvqqOVTBOHXVMO2390-48-37 09:19:00 Test Item Value Reference Range Interpretation Comments Basophils (test code = 0.9 See_Comment [Aut omated message] The Basophils) system which ge nerated this result tra nsmitted reference range : <=1.0. The reference r nilam was not used to int erpret this result as normal/abnormal . [facility] SystemJluhtjbXKCJAEMDQM9412-03-23 09:19:00 Test Item Value Reference Range Interpretation Comments Segs-Bands # (test code = Segs-Bands #) 2.8 1.5-8.1 [facility] SystemVxnzwmcSUQFBJWPLW5710-56-76 09:19:00 Test Item Value Reference Range Interpretation Comments Monocytes (test code = Monocytes) 10.8 2.0-12.0 [facility] SystemNffaumiGYGAMMDCCC9688-62-33 09:19:00 Test Item Value Reference Range Interpretation Comments Eosinophils # (test code 0.1 See_Comment [A utomated message] The = Eosinophils #) system whic h generated this result tra nsmitted reference range : <=0.5. The reference r nilam was not used to int erpret this result as normal/abnormal . [facility] SystemQihbwutEKZNBLKOTB0040-42-56 09:19:00 Test Item Value Reference Range Interpretation Comments Eosinophils (test code = 2.3 See_Comment [A utomated message] The Eosinophils) system which ge nerated this result tra nsmitted reference range : <=4.0. The reference r nilam was not used to int erpret this result as normal/abnormal . [facility] SystemZsuieycOMMNJMLMIM2637-70-30 09:19:00 Test Item Value Reference Range Interpretation Comments Microcyte (test code = 3+ *NA*(11/06/14 4:19 Microcyte) AM) [facility] SystemZhxtknnVHNAZLHBMA7965-12-17 09:19:00 Test Item Value Reference Range Interpretation Comments Lymphocytes # (test code = Lymphocytes 1.6 1.0-5.5 #) [facility] SystemAlmlsgoFYZLKPCTJA9397-22-95 09:19:00 Test Item Value Reference Range Interpretation Comments Monocytes # (test code 0.6 See_Comment [Aut omated message] The = Monocytes #) system which generated this result tra nsmitted reference range : <=0.8. The reference r nilam was not used to int erpret this result as normal/abnormal . [facility] SystemQkphblnQGCNCKVOIB3014-84-93 09:19:00 Test Item Value Reference Range Interpretation Comments MCHC (test code = MCHC) 30.6 32.0-36.0 [facility] SystemOfvrgzwLVYWLKQHON1103-99-80 09:19:00 Test Item Value Reference Range Interpretation Comments MPV (test code = MPV) 8.2 7.4-10.4 [facility] SystemXtbugvqVMXWKDUJLS8313-48-38 09:19:00 Test Item Value Reference Range Interpretation Comments RDW (test code = RDW) 17.5 11.5-14.5 [facility] SystemRvubejsWXZYQSXTII4344-58-37 09:19:00 Test Item Value Reference Range Interpretation Comments Platelet (test code = Platelet) 257 133-450 [facility] SystemRgshhohPZMWIHCWEU6546-51-66 09:19:00 Test Item Value Reference Range Interpretation Comments RBC (test code = RBC) 4.00 4.20-5.40 [facility] SystemXbbpbmgBUOAXIVCHO2673-17-65 09:19:00 Test Item Value Reference Range Interpretation Comments Hgb (test code = Hgb) 8.4 12.0-16.0 [facility] SystemUxxvolnHPVFWOVGIS2590-77-93 09:19:00 Test Item Value Reference Range Interpretation Comments MCH (test code = MCH) 21.1 pg 27.0-31.0 [facility] SystemNxhajhpHJWGSUQQGE8490-77-17 09:19:00 Test Item Value Reference Range Interpretation Comments Hct (test code = Hct) 27.6 36.0-48.0 [facility] SystemSqkhbubZEAHIYXJER7866-04-33 09:19:00 Test Item Value Reference Range Interpretation Comments MCV (test code = MCV) 68.8 80.0-98.0 [facility] SystemPgbhadbITHPKLLCJW2528-55-00 09:19:00 Test Item Value Reference Range Interpretation Comments WBC (test code = WBC) 5.1 3.7-10.4 [facility] HealthKikfoqxIVUFMNXUSJWB5966-76-41 09:19:00 Test Item Value Reference Range Interpretation Comments Potassium Lvl (test code = Potassium 4.4 3.5-5.1 Lvl) [facility]XzdlwncONHYTSJILHDC3965-81-71 09:19:00 Test Item Value Reference Range Interpretation Comments Sodium Lvl (test code = Sodium Lvl) 139 135-145 [facility]NdfipppTHTIDPVZYVQO0313-62-46 09:19:00 Test Item Value Reference Range Interpretation Comments Chloride Lvl (test code = Chloride Lvl) 107 95-109 [facility] HealthFvuxjidTHNCURZVVAHN3705-87-10 09:19:00 Test Item Value Reference Range Interpretation Comments eGFR (test code = eGFR) 107 [facility] HealthXuzqrkxWHGPLNFUWLFY7729-25-06 09:19:00 Test Item Value Reference Range Interpretation Comments CO2 (test code = CO2) 20 24-32 [facility] HealthUpfzstqIHGGFCQKDZCI1696-55-45 09:19:00 Test Item Value Reference Range Interpretation Comments Calcium Lvl (test code = Calcium Lvl) 9.5 8.5-10.5 [facility] HealthJkktippKLEIMXYIRQYU4753-31-46 09:19:00 Test Item Value Reference Range Interpretation Comments Total Protein (test code = Total 7.7 6.4-8.4 Protein) [facility] HealthDvnijoyNDEZWHTAJEGY4504-45-42 09:19:00 Test Item Value Reference Range Interpretation Comments Albumin Lvl (test code = Albumin Lvl) 2.9 3.5-5.0 [facility] HealthRpwsrndGYASOYHSDOFP3965-78-58 09:19:00 Test Item Value Reference Range Interpretation Comments ALT (test code = ALT) 21 See_Comment [Auto mated message] The system which ge nerated this result transmit kuldip reference range : <=65. The reference range was not used to interpr et this result as abiodun l/abnormal. [facility] HealthSsyasbiWGEUBTBSYFLE2842-86-53 09:19:00 Test Item Value Reference Range Interpretation Comments AST (test code = AST) 27 See_Comment [Auto mated message] The system which ge nerated this result transmit kuldip reference range : <=37. The reference range was not used to interpr et this result as abiodun l/abnormal. [facility] HealthGcwepskSTVJOQNYIBME3807-20-12 09:19:00 Test Item Value Reference Range Interpretation Comments Alk Phos (test code = Alk Phos) 81 39-136 [facility] HealthUmjxmjhLMMCJRKIGCQZ4279-46-74 09:19:00 Test Item Value Reference Range Interpretation Comments Bili Total (test code = Bili Total) 0.4 0.2-1.3 [facility] HealthUqcstiaOZZDSVEALMLC5115-45-31 09:19:00 Test Item Value Reference Range Interpretation Comments Creatinine Lvl (test code = Creatinine 0.8 0.5-1.4 Lvl) [facility] HealthYrlcapjHYEQKXRJJUVY6680-29-22 09:19:00 Test Item Value Reference Range Interpretation Comments Glucose Lvl (test code = Glucose Lvl) 88 70-99 [facility] HealthQejghlqKZJZXPYCOXZE1350-94-14 09:19:00 Test Item Value Reference Range Interpretation Comments BUN (test code = BUN) 7 7-22 [facility] HealthIfbvlcbBZYPQOREJUNG6298-08-37 09:19:00 Test Item Value Reference Range Interpretation Comments AGAP (test code = AGAP) 16.4 10.0-20.0 [facility] HealthZtggfzuYZKTKKJOZJJR0672-70-52 09:19:00 Test Item Value Reference Range Interpretation Comments B/C Ratio (test code = B/C Ratio) 9 6-25 [facility] HealthWidukvvTPPOPKPHRCJV8377-49-65 09:19:00 Test Item Value Reference Range Interpretation Comments Globulin (test code = Globulin) 4.8 2.0-4.0 [facility] HealthPtnkhwpSHHTOHNRPWVM9214-71-61 09:19:00 Test Item Value Reference Range Interpretation Comments A/G Ratio (test code = A/G Ratio) 0.6 0.7-1.6 [facility] SystemGumtbaeONEWPGCURU5626-59-40 09:19:00 Test Item Value Reference Range Interpretation Comments Segs (test code = Segs) 54.4 45.0-75.0 [facility] SystemJivovzcBVEKYXSAFG6699-92-32 09:19:00 Test Item Value Reference Range Interpretation Comments Lymphocytes (test code = Lymphocytes) 31.6 20.0-40.0 [facility] SystemUeqamzzLXEYKGPPHH9516-36-85 09:19:00 Test Item Value Reference Range Interpretation Comments Basophils (test code = 0.9 See_Comment [Aut omated message] The Basophils) system which ge nerated this result tra nsmitted reference range : <=1.0. The reference r nilam was not used to int erpret this result as normal/abnormal . [facility] SystemLppjiohWQIJDLWJMB2377-27-71 09:19:00 Test Item Value Reference Range Interpretation Comments Segs-Bands # (test code = Segs-Bands #) 2.8 1.5-8.1 [facility] SystemYmlozyiTYPIJGAMDE9896-22-38 09:19:00 Test Item Value Reference Range Interpretation Comments Monocytes (test code = Monocytes) 10.8 2.0-12.0 [facility] SystemVfeppmiQSMVYNQSMV8108-79-71 09:19:00 Test Item Value Reference Range Interpretation Comments Eosinophils # (test code 0.1 See_Comment [A utomated message] The = Eosinophils #) system whic h generated this result tra nsmitted reference range : <=0.5. The reference r nilam was not used to int erpret this result as normal/abnormal . [facility] SystemQpitnnwYDHIGDXIRJ0605-52-90 09:19:00 Test Item Value Reference Range Interpretation Comments Eosinophils (test code = 2.3 See_Comment [A utomated message] The Eosinophils) system which ge nerated this result tra nsmitted reference range : <=4.0. The reference r nilam was not used to int erpret this result as normal/abnormal . [facility] SystemKimitxzLXKYADCNVK7526-42-09 09:19:00 Test Item Value Reference Range Interpretation Comments Microcyte (test code = 3+ *NA*(11/06/14 4:19 Microcyte) AM) [facility] SystemAwqfndgNXQRVYOFIN9428-22-41 09:19:00 Test Item Value Reference Range Interpretation Comments Lymphocytes # (test code = Lymphocytes 1.6 1.0-5.5 #) [facility] SystemLjnrdraFUAWHVQSHQ6088-02-68 09:19:00 Test Item Value Reference Range Interpretation Comments Monocytes # (test code 0.6 See_Comment [Aut omated message] The = Monocytes #) system which generated this result tra nsmitted reference range : <=0.8. The reference r nilam was not used to int erpret this result as normal/abnormal . [facility] SystemFtoyitgJHYDECBHIL9226-89-29 09:19:00 Test Item Value Reference Range Interpretation Comments MCHC (test code = MCHC) 30.6 32.0-36.0 [facility] SystemJnhljfuQPUODABVGS7142-40-00 09:19:00 Test Item Value Reference Range Interpretation Comments MPV (test code = MPV) 8.2 7.4-10.4 [facility] SystemBbocyjuSITPHCOLRW1956-55-57 09:19:00 Test Item Value Reference Range Interpretation Comments RDW (test code = RDW) 17.5 11.5-14.5 [facility] SystemRacyeiwATAWDSPAOK6909-74-23 09:19:00 Test Item Value Reference Range Interpretation Comments Platelet (test code = Platelet) 257 133-450 [facility] SystemEktzkkiXYQIZKIUWT0251-47-62 09:19:00 Test Item Value Reference Range Interpretation Comments RBC (test code = RBC) 4.00 4.20-5.40 [facility] SystemAvjrexjUNBDDPHWPW6516-70-93 09:19:00 Test Item Value Reference Range Interpretation Comments Hgb (test code = Hgb) 8.4 12.0-16.0 [facility] SystemQbbdkfyTMMOWWXHNR0642-02-49 09:19:00 Test Item Value Reference Range Interpretation Comments MCH (test code = MCH) 21.1 pg 27.0-31.0 [facility] SystemImlbvrrJCSDDKHWXX4110-32-35 09:19:00 Test Item Value Reference Range Interpretation Comments Hct (test code = Hct) 27.6 36.0-48.0 [facility] SystemIabxjmhAUZAVODUBF1465-80-74 09:19:00 Test Item Value Reference Range Interpretation Comments MCV (test code = MCV) 68.8 80.0-98.0 [facility] SystemSsgmxohMUBKYORGPX8658-33-58 09:19:00 Test Item Value Reference Range Interpretation Comments WBC (test code = WBC) 5.1 3.7-10.4 [facility]2015-08-14 04:28:00 Test Item Value Reference Range Interpretation Comments RBC Folate (test code = RBC Folate) 7117 626-791 [facility]2015-08-14 04:28:00 Test Item Value Reference Range Interpretation Comments Folate Lvl (test code = Folate Lvl) 10.4 [facility]2015-08-14 04:28:00 Test Item Value Reference Range Interpretation Comments Vitamin B12 Lvl (test code = Vitamin 022 390-6275 B12 Lvl) [facility]2015-08-14 04:28:00 Test Item Value Reference Range Interpretation Comments TIBC (test code = TIBC) 434 228-428 [facility]2015-08-14 04:28:00 Test Item Value Reference Range Interpretation Comments Iron (test code = Iron) 15 30-160 [facility]2015-08-14 04:28:00 Test Item Value Reference Range Interpretation Comments % Satur Fe (test code = % Satur Fe) 3 12-57 [facility]2015-08-14 04:28:00 Test Item Value Reference Range Interpretation Comments UIBC (test code = UIBC) 419 110-370 [facility]2015-08-14 04:28:00 Test Item Value Reference Range Interpretation Comments Ferritin Lvl (test code = Ferritin Lvl) 2 5-204 [facility]2015-08-14 04:28:00 Test Item Value Reference Range Interpretation Comments LDH (test code = LDH) 114 98-192 [facility] SystemBnwdzrrFGMQJBELJJ3659-48-62 04:28:00 Test Item Value Reference Range Interpretation Comments Retic Auto (test code = Retic Auto) 1.7 0.5-1.5 [facility]DciprtdPSDPVYALWX1981-29-90 04:28:00 Test Item Value Reference Range Interpretation Comments Homocyst Tot (test code = Homocyst Tot) 12.8 3.7-13.9 [facility] [id number] 04:28:00 Test Item Value Reference Range Interpretation Comments RBC Folate (test code = RBC Folate) 1058 280791 [facility] [id number] 04:28:00 Test Item Value Reference Range Interpretation Comments Folate Lvl (test code = Folate Lvl) 10.4 [facility] [id number] 04:28:00 Test Item Value Reference Range Interpretation Comments Vitamin B12 Lvl (test code = Vitamin 173 506-8447 B12 Lvl) [facility] MZSMU4412-28-66 04:28:00 Test Item Value Reference Range Interpretation Comments TIBC (test code = TIBC) 434 228-428 [facility] [id number] 04:28:00 Test Item Value Reference Range Interpretation Comments Iron (test code = Iron) 15 30-160 [facility] [id number] 04:28:00 Test Item Value Reference Range Interpretation Comments % Satur Fe (test code = % Satur Fe) 3 12-57 [facility] [id number] 04:28:00 Test Item Value Reference Range Interpretation Comments UIBC (test code = UIBC) 419 110-370 [facility] [id number] 04:28:00 Test Item Value Reference Range Interpretation Comments Ferritin Lvl (test code = Ferritin Lvl) 2 5-204 [facility]CHE[facility] OBQJB6863-03-07 04:28:00 Test Item Value Reference Range Interpretation Comments LDH (test code = LDH) 114 98-192 [facility] CenterIeapkglPOKOIUDXTP5961-33-17 04:28:00 Test Item Value Reference Range Interpretation Comments Retic Auto (test code = Retic Auto) 1.7 0.5-1.5 [facility] CenterLczwpzvVIACLNUJCR8738-74-18 04:28:00 Test Item Value Reference Range Interpretation Comments Homocyst Tot (test code = Homocyst Tot) 12.8 3.7-13.9 [facility] [id number] 04:28:00 Test Item Value Reference Range Interpretation Comments RBC Folate (test code = RBC Folate) 8889 902-293 [facility]2015-08-14 04:28:00 Test Item Value Reference Range Interpretation Comments Folate Lvl (test code = Folate Lvl) 10.4 [facility]2015-08-14 04:28:00 Test Item Value Reference Range Interpretation Comments Vitamin B12 Lvl (test code = Vitamin [phone] B12 Lvl) [facility] [id number] 04:28:00 Test Item Value Reference Range Interpretation Comments TIBC (test code = TIBC) 434 228-428 [facility] [id number] 04:28:00 Test Item Value Reference Range Interpretation Comments Iron (test code = Iron) 15 30-160 [facility]2015-08-14 04:28:00 Test Item Value Reference Range Interpretation Comments % Satur Fe (test code = % Satur Fe) 3 12-57 [facility] [id number] 04:28:00 Test Item Value Reference Range Interpretation Comments UIBC (test code = UIBC) 419 110-370 [facility] [id number] 04:28:00 Test Item Value Reference Range Interpretation Comments Ferritin Lvl (test code = Ferritin Lvl) 2 5-204 [facility]CHE[facility] PPDAF2592-05-32 04:28:00 Test Item Value Reference Range Interpretation Comments LDH (test code = LDH) 114 98-192 [facility] CenterOdposrvXWWBRRLDRS6711-33-37 04:28:00 Test Item Value Reference Range Interpretation Comments Retic Auto (test code = Retic Auto) 1.7 0.5-1.5 [facility] CenterMqorcdgEEIGJOBVSW7073-76-22 04:28:00 Test Item Value Reference Range Interpretation Comments Homocyst Tot (test code = Homocyst Tot) 12.8 3.7-13.9 [facility] [id number] 04:28:00 Test Item Value Reference Range Interpretation Comments RBC Folate (test code = RBC Folate) 6257 196-621 [facility] [id number] 04:28:00 Test Item Value Reference Range Interpretation Comments Folate Lvl (test code = Folate Lvl) 10.4 [facility]2015-08-14 04:28:00 Test Item Value Reference Range Interpretation Comments Vitamin B12 Lvl (test code = Vitamin 853 171-0896 B12 Lvl) [facility] [id number] 04:28:00 Test Item Value Reference Range Interpretation Comments TIBC (test code = TIBC) 434 228-428 [facility] [id number] 04:28:00 Test Item Value Reference Range Interpretation Comments Iron (test code = Iron) 15 30-160 [facility] [id number] 04:28:00 Test Item Value Reference Range Interpretation Comments % Satur Fe (test code = % Satur Fe) 3 12-57 [facility]2015-08-14 04:28:00 Test Item Value Reference Range Interpretation Comments UIBC (test code = UIBC) 419 110-370 [facility]2015-08-14 04:28:00 Test Item Value Reference Range Interpretation Comments Ferritin Lvl (test code = Ferritin Lvl) 2 5-204 [facility]CHE[facility] [id number] 04:28:00 Test Item Value Reference Range Interpretation Comments LDH (test code = LDH) 114 98-192 [facility] CenterEewlcrzTECGDGGYIU7929-72-43 04:28:00 Test Item Value Reference Range Interpretation Comments Retic Auto (test code = Retic Auto) 1.7 0.5-1.5 [facility] CenterPnldyjkGHDKIUUUZN2576-05-37 04:28:00 Test Item Value Reference Range Interpretation Comments Homocyst Tot (test code = Homocyst Tot) 12.8 3.7-13.9 [facility] AND [id number] 22:15:00 Test Item Value Reference Range Interpretation Comments Occult Bld Stl (test Negative (11/05/14 5:15 code = Occult Bld Stl) PM) [facility] [id number] 22:15:00 Test Item Value Reference Range Interpretation Comments Occult Bld Stl (test Negative (11/05/14 5:15 code = Occult Bld Stl) PM) [facility] AND [id number] 22:15:00 Test Item Value Reference Range Interpretation Comments Occult Bld Stl (test Negative (11/05/14 5:15 code = Occult Bld Stl) PM) [facility] AND [id number] 22:15:00 Test Item Value Reference Range Interpretation Comments Occult Bld Stl (test Negative (11/05/14 5:15 code = Occult Bld Stl) PM) [facility] BANK [id number] 21:23:00 Test Item Value Reference Range Interpretation Comments ABO/Rh (test code = ABO/Rh) B POS [facility] [id number] 21:23:00 Test Item Value Reference Range Interpretation Comments Antibody Scrn (test Negative (11/05/14 4:23 code = Antibody Scrn) PM) [facility] [id number] 21:23:00 Test Item Value Reference Range Interpretation Comments ABO/Rh (test code = ABO/Rh) B POS [facility] [id number] 21:23:00 Test Item Value Reference Range Interpretation Comments Antibody Scrn (test Negative (11/05/14 4:23 code = Antibody Scrn) PM) [facility] [id number] 21:23:00 Test Item Value Reference Range Interpretation Comments ABO/Rh (test code = ABO/Rh) B POS [facility] [id number] 21:23:00 Test Item Value Reference Range Interpretation Comments Antibody Scrn (test Negative (11/05/14 4:23 code = Antibody Scrn) PM) [facility] [id number] 21:23:00 Test Item Value Reference Range Interpretation Comments ABO/Rh (test code = ABO/Rh) B POS [facility] [id number] 21:23:00 Test Item Value Reference Range Interpretation Comments Antibody Scrn (test Negative (11/05/14 4:23 code = Antibody Scrn) PM) [facility] CenterN[facility]ROB[facility] [place] [id number] 20:02:00 Test Item Value Reference Range Interpretation Comments CK MB (test code = CK MB) no gt 0.5-3.6 [facility] CenterCARAC [id number] 20:02:00 Test Item Value Reference Range Interpretation Comments Troponin-I (test code no gt See_Comment [Auto mated message] The = Troponin-I) system which g enerated this result transmit kuldip reference range : <=0.40. The reference r nilam was not used to interpr et this result as abiodun l/abnormal. [facility] HospitalSense[facility] [id number] 20:02:00 Test Item Value Reference Range Interpretation Comments Total CK (test code = Total CK) 148 12-191 [facility] CenterF[place] [id number] 20:02:00 Test Item Value Reference Range Interpretation Comments CK MB Index (test no gt See_Comment [Automate d message] The code = CK MB Index) system w [facility] generated this result transmit kuldip reference range : <=2.5. The reference range was not used to interpr et this result as abiodun l/abnormal. [facility] [place] [id number] 20:02:00 Test Item Value Reference Range Interpretation Comments eGFR (test code = eGFR) 104 [facility] CenterPrivate [facility] [place] [id number] 20:02:00 Test Item Value Reference Range Interpretation Comments CO2 (test code = CO2) 27 24-32 [facility] [id number] 20:02:00 Test Item Value Reference Range Interpretation Comments Calcium Lvl (test code = Calcium Lvl) 9.8 8.5-10.5 [facility] [id number] 20:02:00 Test Item Value Reference Range Interpretation Comments Bili Total (test code = Bili Total) 0.3 0.2-1.3 [facility] [id number] 20:02:00 Test Item Value Reference Range Interpretation Comments BUN (test code = BUN) 7 7-22 [facility] [id number] 20:02:00 Test Item Value Reference Range Interpretation Comments Glucose Lvl (test code = Glucose Lvl) 87 70-99 [facility] [id number] 20:02:00 Test Item Value Reference Range Interpretation Comments Sodium Lvl (test code = Sodium Lvl) 138 135-145 [facility] [id number] 20:02:00 Test Item Value Reference Range Interpretation Comments Chloride Lvl (test code = Chloride Lvl) 104 95-109 [facility] [id number] 20:02:00 Test Item Value Reference Range Interpretation Comments Potassium Lvl (test code = Potassium 3.5 3.5-5.1 Lvl) [facility] [place] [id number] 20:02:00 Test Item Value Reference Range Interpretation Comments Creatinine Lvl (test code = Creatinine 0.8 0.5-1.4 Lvl) [facility]2015-08-13 20:02:00 Test Item Value Reference Range Interpretation Comments Total Protein (test code = Total 8.2 6.4-8.4 Protein) [facility]2015-08-13 20:02:00 Test Item Value Reference Range Interpretation Comments AST (test code = AST) 17 See_Comment [Auto mated message] The system which ge nerated this result transmit kuldip reference range : <=37. The reference range was not used to interpr et this result as abiodun l/abnormal. [facility]2015-08-13 20:02:00 Test Item Value Reference Range Interpretation Comments Globulin (test code = Globulin) 5.0 2.0-4.0 [facility]2015-08-13 20:02:00 Test Item Value Reference Range Interpretation Comments A/G Ratio (test code = A/G Ratio) 0.6 0.7-1.6 [facility]2015-08-13 20:02:00 Test Item Value Reference Range Interpretation Comments B/C Ratio (test code = B/C Ratio) 9 6-25 [facility]2015-08-13 20:02:00 Test Item Value Reference Range Interpretation Comments AGAP (test code = AGAP) 10.5 10.0-20.0 [facility]2015-08-13 20:02:00 Test Item Value Reference Range Interpretation Comments Alk Phos (test code = Alk Phos) 83 39-136 [facility]2015-08-13 20:02:00 Test Item Value Reference Range Interpretation Comments Albumin Lvl (test code = Albumin Lvl) 3.2 3.5-5.0 [facility]2015-08-13 20:02:00 Test Item Value Reference Range Interpretation Comments ALT (test code = ALT) 18 See_Comment [Auto mated message] The system which ge nerated this result transmit kuldip reference range : <=65. The reference range was not used to interpr et this result as abiodun l/abnormal. [facility] SystemPgexndoMJFZQHCNGV6106-03-37 20:02:00 Test Item Value Reference Range Interpretation Comments PTT (test code = PTT) 29.7 s 22.9-35.8 [facility] SystemElohhgwDQRSNQOXPZ6141-44-86 20:02:00 Test Item Value Reference Range Interpretation Comments PT (test code = PT) 15.1 s 12.0-14.7 [facility] SystemBawqlseYREISRJNHM5047-05-20 20:02:00 Test Item Value Reference Range Interpretation Comments INR (test code = INR) 1.18 0.85-1.17 [facility] SystemKijuhwjWXNBCFQOTH1052-16-68 20:02:00 Test Item Value Reference Range Interpretation Comments WBC (test code = WBC) 5.0 3.7-10.4 [facility] SystemOoqschgZIWOXMBDMB3260-99-68 20:02:00 Test Item Value Reference Range Interpretation Comments RBC (test code = RBC) 4.01 4.20-5.40 [facility] SystemEyervpnCGVRMATCUM4791-89-44 20:02:00 Test Item Value Reference Range Interpretation Comments Hgb (test code = Hgb) 8.2 12.0-16.0 [facility] SystemDmzqeubTHCPBBBKAD6412-21-51 20:02:00 Test Item Value Reference Range Interpretation Comments MPV (test code = MPV) 7.6 7.4-10.4 [facility] SystemUughofpWJHZOIXTEV1812-33-28 20:02:00 Test Item Value Reference Range Interpretation Comments RDW (test code = RDW) 17.2 11.5-14.5 [facility] SystemJpjaqxhVBFVERJGJJ7612-39-94 20:02:00 Test Item Value Reference Range Interpretation Comments Platelet (test code = Platelet) 281 133-450 [facility] SystemFtvefczWBOEDBZOWS2090-37-56 20:02:00 Test Item Value Reference Range Interpretation Comments MCH (test code = MCH) 20.4 pg 27.0-31.0 [facility] SystemHxdpeplHPNGJWIKRX5587-92-72 20:02:00 Test Item Value Reference Range Interpretation Comments MCHC (test code = MCHC) 29.8 32.0-36.0 [facility] SystemIlvawutRMNYXWFOMP1502-50-77 20:02:00 Test Item Value Reference Range Interpretation Comments MCV (test code = MCV) 68.4 80.0-98.0 [facility] SystemZjydyyvWPNNETHOVM0209-56-30 20:02:00 Test Item Value Reference Range Interpretation Comments Hct (test code = Hct) 27.4 36.0-48.0 [facility] SystemNbtjguxWHGNHMRUTU1252-23-29 20:02:00 Test Item Value Reference Range Interpretation Comments Segs (test code = Segs) 63.4 45.0-75.0 [facility] SystemYxmhlohQGZQOJSEPT7263-54-16 20:02:00 Test Item Value Reference Range Interpretation Comments Hypochrom (test code = 1+ (11/05/14 3:02 PM) Hypochrom) [facility] SystemTqljdbzGOUHSWXHEV7126-48-70 20:02:00 Test Item Value Reference Range Interpretation Comments Monocytes (test code = Monocytes) 10.2 2.0-12.0 [facility] SystemDwjdebcWFXBGJJSFF2546-24-77 20:02:00 Test Item Value Reference Range Interpretation Comments Eosinophils (test code = 1.5 See_Comment [A utomated message] The Eosinophils) system which ge nerated this result tra nsmitted reference range : <=4.0. The reference r nilam was not used to int erpret this result as normal/abnormal . [facility] SystemKpjfubkEJWLSRWPIZ4556-77-08 20:02:00 Test Item Value Reference Range Interpretation Comments Basophils (test code = 0.3 See_Comment [Aut omated message] The Basophils) system which ge nerated this result tra nsmitted reference range : <=1.0. The reference r nilam was not used to int erpret this result as normal/abnormal . [facility] SystemCrcjugrEZYFLGXURM3569-19-46 20:02:00 Test Item Value Reference Range Interpretation Comments Lymphocytes (test code = Lymphocytes) 24.6 20.0-40.0 [facility] SystemElkdpedJIITQPECVE6764-11-74 20:02:00 Test Item Value Reference Range Interpretation Comments Plt Morph (test code = Normal (11/05/14 3:02 Plt Morph) PM) [facility] SystemEjdarnaJSVJTLDVWU9996-49-81 20:02:00 Test Item Value Reference Range Interpretation Comments RBC Morph (test code = See Note (11/05/14 3:02 RBC Morph) PM) [facility] SystemCmhlsslFCUHWXMATO7640-74-33 20:02:00 Test Item Value Reference Range Interpretation Comments Lymphocytes # (test code = Lymphocytes 1.2 1.0-5.5 #) [facility] SystemAxbbwjeRFMUIGOUMO3756-60-28 20:02:00 Test Item Value Reference Range Interpretation Comments Monocytes # (test code 0.5 See_Comment [Aut omated message] The = Monocytes #) system which generated this result tra nsmitted reference range : <=0.8. The reference r nilam was not used to int erpret this result as normal/abnormal . [facility]57[facility]71 20:02:00 Test Item Value Reference Range Interpretation Comments Segs-Bands # (test code = Segs-Bands #) 3.2 1.5-8.1 [facility]DtqjdthWLOZUMDACX4338-23-55 20:02:00 Test Item Value Reference Range Interpretation Comments Microcyte (test code = 3+ *NA*(11/05/14 3:02 Microcyte) PM) [facility]IvejxlbFRYRGFVVZQ9396-68-16 20:02:00 Test Item Value Reference Range Interpretation Comments Eosinophils # (test code 0.1 See_Comment [A utomated message] The = Eosinophils #) system whic h generated this result tra nsmitted reference range : <=0.5. The reference r nilam was not used to int erpret this result as normal/abnormal . [facility] HospitalSensewareAC IFWWJLK0833-65-14 20:02:00 Test Item Value Reference Range Interpretation Comments CK MB (test code = CK MB) no gt 0.5-3.6 [facility] HospitalSensewareAC IYPEDJQ8124-61-68 20:02:00 Test Item Value Reference Range Interpretation Comments Troponin-I (test code no gt See_Comment [Auto mated message] The = Troponin-I) system which g enerated this result transmit kuldip reference range : <=0.40. The reference r nilam was not used to interpr et this result as abiodun l/abnormal. [facility] HospitalSensewareAC [id number] 20:02:00 Test Item Value Reference Range Interpretation Comments Total CK (test code = Total CK) 148 12-191 [facility] CenterF[facility] NationAC [id number] 20:02:00 Test Item Value Reference Range Interpretation Comments CK MB Index (test no gt See_Comment [Automate d message] The code = CK MB Index) system w [facility] generated this result transmit kuldip reference range : <=2.5. The reference range was not used to interpr et this result as abiodun l/abnormal. [facility] [id number] 20:02:00 Test Item Value Reference Range Interpretation Comments eGFR (test code = eGFR) 104 [facility]2015-08-13 20:02:00 Test Item Value Reference Range Interpretation Comments CO2 (test code = CO2) 27 24-32 [facility]2015-08-13 20:02:00 Test Item Value Reference Range Interpretation Comments Calcium Lvl (test code = Calcium Lvl) 9.8 8.5-10.5 [facility]2015-08-13 20:02:00 Test Item Value Reference Range Interpretation Comments Bili Total (test code = Bili Total) 0.3 0.2-1.3 [facility]2015-08-13 20:02:00 Test Item Value Reference Range Interpretation Comments BUN (test code = BUN) 7 7-22 [facility]2015-08-13 20:02:00 Test Item Value Reference Range Interpretation Comments Glucose Lvl (test code = Glucose Lvl) 87 70-99 [facility]2015-08-13 20:02:00 Test Item Value Reference Range Interpretation Comments Sodium Lvl (test code = Sodium Lvl) 138 135-145 [facility]2015-08-13 20:02:00 Test Item Value Reference Range Interpretation Comments Chloride Lvl (test code = Chloride Lvl) 104 95-109 [facility]2015-08-13 20:02:00 Test Item Value Reference Range Interpretation Comments Potassium Lvl (test code = Potassium 3.5 3.5-5.1 Lvl) [facility]2015-08-13 20:02:00 Test Item Value Reference Range Interpretation Comments Creatinine Lvl (test code = Creatinine 0.8 0.5-1.4 Lvl) [facility]2015-08-13 20:02:00 Test Item Value Reference Range Interpretation Comments Total Protein (test code = Total 8.2 6.4-8.4 Protein) [facility]2015-08-13 20:02:00 Test Item Value Reference Range Interpretation Comments AST (test code = AST) 17 See_Comment [Auto mated message] The system which ge nerated this result transmit kuldip reference range : <=37. The reference range was not used to interpr et this result as abiodun l/abnormal. [facility]2015-08-13 20:02:00 Test Item Value Reference Range Interpretation Comments Globulin (test code = Globulin) 5.0 2.0-4.0 [facility]2015-08-13 20:02:00 Test Item Value Reference Range Interpretation Comments A/G Ratio (test code = A/G Ratio) 0.6 0.7-1.6 [facility]2015-08-13 20:02:00 Test Item Value Reference Range Interpretation Comments B/C Ratio (test code = B/C Ratio) 9 6-25 [facility]2015-08-13 20:02:00 Test Item Value Reference Range Interpretation Comments AGAP (test code = AGAP) 10.5 10.0-20.0 [facility]2015-08-13 20:02:00 Test Item Value Reference Range Interpretation Comments Alk Phos (test code = Alk Phos) 83 39-136 [facility]2015-08-13 20:02:00 Test Item Value Reference Range Interpretation Comments Albumin Lvl (test code = Albumin Lvl) 3.2 3.5-5.0 [facility]2015-08-13 20:02:00 Test Item Value Reference Range Interpretation Comments ALT (test code = ALT) 18 See_Comment [Auto mated message] The system which ge nerated this result transmit kuldip reference range : <=65. The reference range was not used to interpr et this result as abiodun l/abnormal. [facility] SystemJqwjfppVDKRCTZFGP2248-96-96 20:02:00 Test Item Value Reference Range Interpretation Comments PTT (test code = PTT) 29.7 s 22.9-35.8 [facility] SystemGabiurcPCRVDHZYPF1256-55-76 20:02:00 Test Item Value Reference Range Interpretation Comments PT (test code = PT) 15.1 s 12.0-14.7 [facility] SystemUzeanhfABREPOSMBZ8328-68-45 20:02:00 Test Item Value Reference Range Interpretation Comments INR (test code = INR) 1.18 0.85-1.17 [facility] SystemEwjuhcvFHIBENBCYD3381-49-36 20:02:00 Test Item Value Reference Range Interpretation Comments WBC (test code = WBC) 5.0 3.7-10.4 [facility] SystemSvnarmqVNHPCZDSPT2167-89-76 20:02:00 Test Item Value Reference Range Interpretation Comments RBC (test code = RBC) 4.01 4.20-5.40 [facility] SystemMvjskegGARIJFXVCP7768-21-34 20:02:00 Test Item Value Reference Range Interpretation Comments Hgb (test code = Hgb) 8.2 12.0-16.0 [facility] SystemJgcklkkDRSZRKVLLW6975-10-11 20:02:00 Test Item Value Reference Range Interpretation Comments MPV (test code = MPV) 7.6 7.4-10.4 [facility] SystemWttzjayYSTULCEIBH9812-84-78 20:02:00 Test Item Value Reference Range Interpretation Comments RDW (test code = RDW) 17.2 11.5-14.5 [facility] SystemVigqptrKESJCZPHUE7826-17-17 20:02:00 Test Item Value Reference Range Interpretation Comments Platelet (test code = Platelet) 281 133-450 [facility] SystemOmkldpjNIUDDWYAEK5595-23-87 20:02:00 Test Item Value Reference Range Interpretation Comments MCH (test code = MCH) 20.4 pg 27.0-31.0 [facility] SystemRtmoixePAJEZDGEZS3030-98-97 20:02:00 Test Item Value Reference Range Interpretation Comments MCHC (test code = MCHC) 29.8 32.0-36.0 [facility] SystemXnwzlvxOCWKQOARWC9919-53-94 20:02:00 Test Item Value Reference Range Interpretation Comments MCV (test code = MCV) 68.4 80.0-98.0 [facility] SystemUkkjrcaEJFPALLPMW4916-56-47 20:02:00 Test Item Value Reference Range Interpretation Comments Hct (test code = Hct) 27.4 36.0-48.0 [facility] SystemBsbxhrbZCKEIWAWGN3087-11-89 20:02:00 Test Item Value Reference Range Interpretation Comments Segs (test code = Segs) 63.4 45.0-75.0 [facility] SystemEwrgnzzSMMPTIYUPK0389-52-65 20:02:00 Test Item Value Reference Range Interpretation Comments Hypochrom (test code = 1+ (11/05/14 3:02 PM) Hypochrom) [facility] SystemIuuhwrdXQCMPIAWOV3687-48-76 20:02:00 Test Item Value Reference Range Interpretation Comments Monocytes (test code = Monocytes) 10.2 2.0-12.0 [facility] SystemMyntxtaVNMXOLYMPR6428-14-62 20:02:00 Test Item Value Reference Range Interpretation Comments Eosinophils (test code = 1.5 See_Comment [A utomated message] The Eosinophils) system which ge nerated this result tra nsmitted reference range : <=4.0. The reference r nilam was not used to int erpret this result as normal/abnormal . [facility] SystemRsexnoeXCUMLNRHSC8610-16-80 20:02:00 Test Item Value Reference Range Interpretation Comments Basophils (test code = 0.3 See_Comment [Aut omated message] The Basophils) system which ge nerated this result tra nsmitted reference range : <=1.0. The reference r nilam was not used to int erpret this result as normal/abnormal . [facility] SystemBvxvvjjHIXAIOSLJB8013-56-34 20:02:00 Test Item Value Reference Range Interpretation Comments Lymphocytes (test code = Lymphocytes) 24.6 20.0-40.0 [facility] SystemDagklqlKAKKJDMYOE9726-45-18 20:02:00 Test Item Value Reference Range Interpretation Comments Plt Morph (test code = Normal (11/05/14 3:02 Plt Morph) PM) [facility] SystemDigtdxwOVJWZGFZZV0804-36-95 20:02:00 Test Item Value Reference Range Interpretation Comments RBC Morph (test code = See Note (11/05/14 3:02 RBC Morph) PM) [facility] SystemKqapfuxDAQZRGIIRL0051-61-86 20:02:00 Test Item Value Reference Range Interpretation Comments Lymphocytes # (test code = Lymphocytes 1.2 1.0-5.5 #) [facility] SystemYsyigqiUYUMYGUWHQ0587-34-61 20:02:00 Test Item Value Reference Range Interpretation Comments Monocytes # (test code 0.5 See_Comment [Aut omated message] The = Monocytes #) system which generated this result tra nsmitted reference range : <=0.8. The reference r nilam was not used to int erpret this result as normal/abnormal . [facility] SystemPpcibqaIJUNPFNFAB0788-52-36 20:02:00 Test Item Value Reference Range Interpretation Comments Segs-Bands # (test code = Segs-Bands #) 3.2 1.5-8.1 [facility] SystemZyrfrsxKMDFLJDIUB1422-03-05 20:02:00 Test Item Value Reference Range Interpretation Comments Microcyte (test code = 3+ *NA*(11/05/14 3:02 Microcyte) PM) [facility] SystemFdyxbydLISMBHEVIC3852-31-61 20:02:00 Test Item Value Reference Range Interpretation Comments Eosinophils # (test code 0.1 See_Comment [A utomated message] The = Eosinophils #) system [facility] h generated this result tra nsmitted reference range : <=0.5. The reference r nilam was not used to int erpret this result as normal/abnormal . [facility]2015-08-13 20:02:00 Test Item Value Reference Range Interpretation Comments CK MB (test code = CK MB) no gt 0.5-3.6 [facility] [employer]2015-08-13 20:02:00 Test Item Value Reference Range Interpretation Comments Troponin-I (test code no gt See_Comment [Auto mated message] The = Troponin-I) system which g enerated this result transmit kuldip reference range : <=0.40. The reference r nilam was not used to interpr et this result as abiodun l/abnormal. [facility] [employer]2015-08-13 20:02:00 Test Item Value Reference Range Interpretation Comments Total CK (test code = Total CK) 148 12-191 [facility] [employer]2015-08-13 20:02:00 Test Item Value Reference Range Interpretation Comments CK MB Index (test no gt See_Comment [Automate d message] The code = CK MB Index) system w [facility] generated this result transmit kuldip reference range : <=2.5. The reference range was not used to interpr et this result as abiodun l/abnormal. [facility] [employer]2015-08-13 20:02:00 Test Item Value Reference Range Interpretation Comments eGFR (test code = eGFR) 104 [facility] [employer]2015-08-13 20:02:00 Test Item Value Reference Range Interpretation Comments CO2 (test code = CO2) 27 24-32 [facility] [employer]2015-08-13 20:02:00 Test Item Value Reference Range Interpretation Comments Calcium Lvl (test code = Calcium Lvl) 9.8 8.5-10.5 [facility] [employer]2015-08-13 20:02:00 Test Item Value Reference Range Interpretation Comments Bili Total (test code = Bili Total) 0.3 0.2-1.3 [facility] [employer]2015-08-13 20:02:00 Test Item Value Reference Range Interpretation Comments BUN (test code = BUN) 7 7-22 [facility]2015-08-13 20:02:00 Test Item Value Reference Range Interpretation Comments Glucose Lvl (test code = Glucose Lvl) 87 70-99 [facility]2015-08-13 20:02:00 Test Item Value Reference Range Interpretation Comments Sodium Lvl (test code = Sodium Lvl) 138 135-145 [facility]2015-08-13 20:02:00 Test Item Value Reference Range Interpretation Comments Chloride Lvl (test code = Chloride Lvl) 104 95-109 [facility]2015-08-13 20:02:00 Test Item Value Reference Range Interpretation Comments Potassium Lvl (test code = Potassium 3.5 3.5-5.1 Lvl) [facility]2015-08-13 20:02:00 Test Item Value Reference Range Interpretation Comments Creatinine Lvl (test code = Creatinine 0.8 0.5-1.4 Lvl) [facility]2015-08-13 20:02:00 Test Item Value Reference Range Interpretation Comments Total Protein (test code = Total 8.2 6.4-8.4 Protein) [facility]2015-08-13 20:02:00 Test Item Value Reference Range Interpretation Comments AST (test code = AST) 17 See_Comment [Auto mated message] The system which ge nerated this result transmit kuldip reference range : <=37. The reference range was not used to interpr et this result as abiodun l/abnormal. [facility]2015-08-13 20:02:00 Test Item Value Reference Range Interpretation Comments Globulin (test code = Globulin) 5.0 2.0-4.0 [facility]2015-08-13 20:02:00 Test Item Value Reference Range Interpretation Comments A/G Ratio (test code = A/G Ratio) 0.6 0.7-1.6 [facility]2015-08-13 20:02:00 Test Item Value Reference Range Interpretation Comments B/C Ratio (test code = B/C Ratio) 9 6-25 [place] 222465-08-13 20:02:00 Test Item Value Reference Range Interpretation Comments AGAP (test code = AGAP) 10.5 10.0-20.0 [facility]2015-08-13 20:02:00 Test Item Value Reference Range Interpretation Comments Alk Phos (test code = Alk Phos) 83 39-136 [facility] SUFYP8119-83-18 20:02:00 Test Item Value Reference Range Interpretation Comments Albumin Lvl (test code = Albumin Lvl) 3.2 3.5-5.0 [facility]2015-08-13 20:02:00 Test Item Value Reference Range Interpretation Comments ALT (test code = ALT) 18 See_Comment [Auto mated message] The system which ge nerated this result transmit kuldip reference range : <=65. The reference range was not used to interpr et this result as abiodun l/abnormal. [facility] SystemUugvuyqCHXBNUNEPH4598-31-51 20:02:00 Test Item Value Reference Range Interpretation Comments PTT (test code = PTT) 29.7 s 22.9-35.8 [facility] SystemWexaggsRDONXLEPPS1830-22-30 20:02:00 Test Item Value Reference Range Interpretation Comments PT (test code = PT) 15.1 s 12.0-14.7 [facility] SystemSnehaxsTDXCCAESRK9959-85-31 20:02:00 Test Item Value Reference Range Interpretation Comments INR (test code = INR) 1.18 0.85-1.17 [facility] SystemPvlsiajEBHEKFYJBR2258-00-20 20:02:00 Test Item Value Reference Range Interpretation Comments WBC (test code = WBC) 5.0 3.7-10.4 [facility] SystemZjtnwzpFHOSQFIEHN6138-98-93 20:02:00 Test Item Value Reference Range Interpretation Comments RBC (test code = RBC) 4.01 4.20-5.40 [facility] SystemWungrbvGJLHGCQLJO5579-10-88 20:02:00 Test Item Value Reference Range Interpretation Comments Hgb (test code = Hgb) 8.2 12.0-16.0 [facility] SystemQimaiueCKLKEAINUG6668-23-21 20:02:00 Test Item Value Reference Range Interpretation Comments MPV (test code = MPV) 7.6 7.4-10.4 [facility] SystemAapcykuWLSYOHAUES2666-47-60 20:02:00 Test Item Value Reference Range Interpretation Comments RDW (test code = RDW) 17.2 11.5-14.5 [facility] SystemHufbfdqKLKWDZOJDN2977-41-45 20:02:00 Test Item Value Reference Range Interpretation Comments Platelet (test code = Platelet) 281 133-450 [facility] SystemTtumypqFYJYEYECHD1770-56-43 20:02:00 Test Item Value Reference Range Interpretation Comments MCH (test code = MCH) 20.4 pg 27.0-31.0 [facility] SystemUpegoydNYSGOBZCZY9154-45-16 20:02:00 Test Item Value Reference Range Interpretation Comments MCHC (test code = MCHC) 29.8 32.0-36.0 [facility] SystemMwqfzrcXOKQOLLRBI7471-20-27 20:02:00 Test Item Value Reference Range Interpretation Comments MCV (test code = MCV) 68.4 80.0-98.0 [facility] SystemGozyresFFQMOYJHRJ7716-31-72 20:02:00 Test Item Value Reference Range Interpretation Comments Hct (test code = Hct) 27.4 36.0-48.0 [facility] SystemNmpjjvrZHSKNXJAIM6991-64-38 20:02:00 Test Item Value Reference Range Interpretation Comments Segs (test code = Segs) 63.4 45.0-75.0 [facility] SystemLpzrsttYZEFWBXFZG4464-27-54 20:02:00 Test Item Value Reference Range Interpretation Comments Hypochrom (test code = 1+ (11/05/14 3:02 PM) Hypochrom) [facility] SystemTwadnpvJXTVYLNYBF4164-05-10 20:02:00 Test Item Value Reference Range Interpretation Comments Monocytes (test code = Monocytes) 10.2 2.0-12.0 [facility] SystemQiksiibBDVQNYMXAT5904-08-81 20:02:00 Test Item Value Reference Range Interpretation Comments Eosinophils (test code = 1.5 See_Comment [A utomated message] The Eosinophils) system which ge nerated this result tra nsmitted reference range : <=4.0. The reference r nilam was not used to int erpret this result as normal/abnormal . [facility] SystemVicnklyOWFZPJSQZN7957-43-35 20:02:00 Test Item Value Reference Range Interpretation Comments Basophils (test code = 0.3 See_Comment [Aut omated message] The Basophils) system which ge nerated this result tra nsmitted reference range : <=1.0. The reference r nilam was not used to int erpret this result as normal/abnormal . [facility] SystemAxhrsagSENCHWZAIY9232-85-42 20:02:00 Test Item Value Reference Range Interpretation Comments Lymphocytes (test code = Lymphocytes) 24.6 20.0-40.0 [facility] SystemXshpeveWSIITKFSMH9892-07-36 20:02:00 Test Item Value Reference Range Interpretation Comments Plt Morph (test code = Normal (11/05/14 3:02 Plt Morph) PM) [facility] SystemApacvhaQAVLODBOMN9169-90-11 20:02:00 Test Item Value Reference Range Interpretation Comments RBC Morph (test code = See Note (11/05/14 3:02 RBC Morph) PM) [facility] SystemZvkzsznILAFIVSNOO8124-67-97 20:02:00 Test Item Value Reference Range Interpretation Comments Lymphocytes # (test code = Lymphocytes 1.2 1.0-5.5 #) [facility] SystemAmbymkaDSCLMYWQGS8909-44-35 20:02:00 Test Item Value Reference Range Interpretation Comments Monocytes # (test code 0.5 See_Comment [Aut omated message] The = Monocytes #) system which generated this result tra nsmitted reference range : <=0.8. The reference r nilam was not used to int erpret this result as normal/abnormal . [facility] SystemBahlxjdNNCVHTAJCO6859-91-33 20:02:00 Test Item Value Reference Range Interpretation Comments Segs-Bands # (test code = Segs-Bands #) 3.2 1.5-8.1 [facility] SystemQjrscqxPFZYOJDHIV0347-61-10 20:02:00 Test Item Value Reference Range Interpretation Comments Microcyte (test code = 3+ *NA*(11/05/14 3:02 Microcyte) PM) [facility] SystemFttgoxfZHXGXXPHNH5678-62-17 20:02:00 Test Item Value Reference Range Interpretation Comments Eosinophils # (test code 0.1 See_Comment [A utomated message] The = Eosinophils #) system whic h generated this result tra nsmitted reference range : <=0.5. The reference r nilam was not used to int erpret this result as normal/abnormal . [facility] AHZYQYP6586-92-77 20:02:00 Test Item Value Reference Range Interpretation Comments CK MB (test code = CK MB) no gt 0.5-3.6 [facility] TJKHOKR9555-26-08 20:02:00 Test Item Value Reference Range Interpretation Comments Troponin-I (test code no gt See_Comment [Auto mated message] The = Troponin-I) system which g enerated this result transmit kuldip reference range : <=0.40. The reference r nilam was not used to interpr et this result as abiodun l/abnormal. [facility] KHBHHDL4193-35-76 20:02:00 Test Item Value Reference Range Interpretation Comments Total CK (test code = Total CK) 148 12-191 [facility] CenterF[facility] VMIHVNB9139-23-83 20:02:00 Test Item Value Reference Range Interpretation Comments CK MB Index (test no gt See_Comment [Automate d message] The code = CK MB Index) system w [facility] generated this result transmit kuldip reference range : <=2.5. The reference range was not used to interpr et this result as abiodun l/abnormal. [facility] [place] BLAZG4152-31-82 20:02:00 Test Item Value Reference Range Interpretation Comments eGFR (test code = eGFR) 104 [facility] [id number] 20:02:00 Test Item Value Reference Range Interpretation Comments CO2 (test code = CO2) 27 24-32 [facility] IFPLG8306-05-79 20:02:00 Test Item Value Reference Range Interpretation Comments Calcium Lvl (test code = Calcium Lvl) 9.8 8.5-10.5 [facility] [id number] 20:02:00 Test Item Value Reference Range Interpretation Comments Bili Total (test code = Bili Total) 0.3 0.2-1.3 [facility] GGGPX8832-41-24 20:02:00 Test Item Value Reference Range Interpretation Comments BUN (test code = BUN) 7 7-22 [facility] [id number] 20:02:00 Test Item Value Reference Range Interpretation Comments Glucose Lvl (test code = Glucose Lvl) 87 70-99 [facility] [id number] 20:02:00 Test Item Value Reference Range Interpretation Comments Sodium Lvl (test code = Sodium Lvl) 138 135-145 [facility] [id number] 20:02:00 Test Item Value Reference Range Interpretation Comments Chloride Lvl (test code = Chloride Lvl) 104 95-109 [facility] [id number] 20:02:00 Test Item Value Reference Range Interpretation Comments Potassium Lvl (test code = Potassium 3.5 3.5-5.1 Lvl) [facility] [id number] 20:02:00 Test Item Value Reference Range Interpretation Comments Creatinine Lvl (test code = Creatinine 0.8 0.5-1.4 Lvl) [facility]2015-08-13 20:02:00 Test Item Value Reference Range Interpretation Comments Total Protein (test code = Total 8.2 6.4-8.4 Protein) [facility]2015-08-13 20:02:00 Test Item Value Reference Range Interpretation Comments AST (test code = AST) 17 See_Comment [Auto mated message] The system which ge nerated this result transmit kuldip reference range : <=37. The reference range was not used to interpr et this result as abiodun l/abnormal. [facility]2015-08-13 20:02:00 Test Item Value Reference Range Interpretation Comments Globulin (test code = Globulin) 5.0 2.0-4.0 [facility]2015-08-13 20:02:00 Test Item Value Reference Range Interpretation Comments A/G Ratio (test code = A/G Ratio) 0.6 0.7-1.6 [facility]2015-08-13 20:02:00 Test Item Value Reference Range Interpretation Comments B/C Ratio (test code = B/C Ratio) 9 6-25 [facility]2015-08-13 20:02:00 Test Item Value Reference Range Interpretation Comments AGAP (test code = AGAP) 10.5 10.0-20.0 [facility]2015-08-13 20:02:00 Test Item Value Reference Range Interpretation Comments Alk Phos (test code = Alk Phos) 83 39-136 [facility]2015-08-13 20:02:00 Test Item Value Reference Range Interpretation Comments Albumin Lvl (test code = Albumin Lvl) 3.2 3.5-5.0 [facility]2015-08-13 20:02:00 Test Item Value Reference Range Interpretation Comments ALT (test code = ALT) 18 See_Comment [Auto mated message] The system which ge nerated this result transmit kuldip reference range : <=65. The reference range was not used to interpr et this result as abiodun l/abnormal. [id number] 20:02:00 Test Item Value Reference Range Interpretation Comments PTT (test code = PTT) 29.7 s 22.9-35.8 [id number] 20:02:00 Test Item Value Reference Range Interpretation Comments PT (test code = PT) 15.1 s 12.0-14.7 [facility] Syst[id number] 20:02:00 Test Item Value Reference Range Interpretation Comments INR (test code = INR) 1.18 0.85-1.17 [facility]NhwngrdGCPBSWEOFG6494-39-91 20:02:00 Test Item Value Reference Range Interpretation Comments WBC (test code = WBC) 5.0 3.7-10.4 [facility] SystemLgjlekgABRXEUHXRV2382-70-96 20:02:00 Test Item Value Reference Range Interpretation Comments RBC (test code = RBC) 4.01 4.20-5.40 [facility] SystemPcrcjedKBFMTJKUMS3072-57-71 20:02:00 Test Item Value Reference Range Interpretation Comments Hgb (test code = Hgb) 8.2 12.0-16.0 [facility] SystemDuqsbuoMNQOBASAFH8032-11-02 20:02:00 Test Item Value Reference Range Interpretation Comments MPV (test code = MPV) 7.6 7.4-10.4 [facility] SystemNonfybxVIWTNORGGV9260-88-40 20:02:00 Test Item Value Reference Range Interpretation Comments RDW (test code = RDW) 17.2 11.5-14.5 [facility] SystemDbdctvkUQQZBSEVTO5229-99-18 20:02:00 Test Item Value Reference Range Interpretation Comments Platelet (test code = Platelet) 281 133-450 [facility] SystemCdqktrsQYYRUJKXEA4277-22-96 20:02:00 Test Item Value Reference Range Interpretation Comments MCH (test code = MCH) 20.4 pg 27.0-31.0 [facility] SystemEpuqyasSKXFXORGBJ0082-15-01 20:02:00 Test Item Value Reference Range Interpretation Comments MCHC (test code = MCHC) 29.8 32.0-36.0 [facility] SystemLqvcmajVFTGAIAEOU6559-42-74 20:02:00 Test Item Value Reference Range Interpretation Comments MCV (test code = MCV) 68.4 80.0-98.0 [facility] SystemYkmsaysCDLLLRRVGU7664-16-25 20:02:00 Test Item Value Reference Range Interpretation Comments Hct (test code = Hct) 27.4 36.0-48.0 [facility] SystemUjiiajyLMVFNKZNDK6254-67-01 20:02:00 Test Item Value Reference Range Interpretation Comments Segs (test code = Segs) 63.4 45.0-75.0 [facility] SystemXnarhgkFJXOEQIQWR8114-79-24 20:02:00 Test Item Value Reference Range Interpretation Comments Hypochrom (test code = 1+ (11/05/14 3:02 PM) Hypochrom) [facility] SystemKpigpamORMBFHEHLV7062-04-68 20:02:00 Test Item Value Reference Range Interpretation Comments Monocytes (test code = Monocytes) 10.2 2.0-12.0 [facility] SystemLxgyieqHHLTMWVOMG2356-97-86 20:02:00 Test Item Value Reference Range Interpretation Comments Eosinophils (test code = 1.5 See_Comment [A utomated message] The Eosinophils) system which ge nerated this result tra nsmitted reference range : <=4.0. The reference r nilam was not used to int erpret this result as normal/abnormal . [facility] SystemNxdihrxGCHMGLBOHW7842-84-37 20:02:00 Test Item Value Reference Range Interpretation Comments Basophils (test code = 0.3 See_Comment [Aut omated message] The Basophils) system which ge nerated this result tra nsmitted reference range : <=1.0. The reference r nilam was not used to int erpret this result as normal/abnormal . [facility] SystemVjlqhpcSZOWRPKCYJ9871-91-51 20:02:00 Test Item Value Reference Range Interpretation Comments Lymphocytes (test code = Lymphocytes) 24.6 20.0-40.0 [facility] SystemSheqyzsVKKRRDVMCX1365-45-43 20:02:00 Test Item Value Reference Range Interpretation Comments Plt Morph (test code = Normal (11/05/14 3:02 Plt Morph) PM) [facility] SystemWneoicnMSTMENOAXC4450-27-45 20:02:00 Test Item Value Reference Range Interpretation Comments RBC Morph (test code = See Note (11/05/14 3:02 RBC Morph) PM) [facility] SystemWygaokuCCXXJQVDAW9357-00-26 20:02:00 Test Item Value Reference Range Interpretation Comments Lymphocytes # (test code = Lymphocytes 1.2 1.0-5.5 #) [facility] SystemEiqujjbUUVJBJXHGF3713-69-97 20:02:00 Test Item Value Reference Range Interpretation Comments Monocytes # (test code 0.5 See_Comment [Aut omated message] The = Monocytes #) system which generated this result tra nsmitted reference range : <=0.8. The reference r nilam was not used to int erpret this result as normal/abnormal . [facility] SystemXekvhxnGBHBJHUQIR3715-45-65 20:02:00 Test Item Value Reference Range Interpretation Comments Segs-Bands # (test code = Segs-Bands #) 3.2 1.5-8.1 [facility] SystemYcggkehMMDFYPLYKW6833-35-39 20:02:00 Test Item Value Reference Range Interpretation Comments Microcyte (test code = 3+ *NA*(11/05/14 3:02 Microcyte) PM) [facility] SystemJnanvmyRIIWYNRRFR1118-92-42 20:02:00 Test Item Value Reference Range Interpretation Comments Eosinophils # (test code 0.1 See_Comment [A utomated message] The = Eosinophils #) system whic h generated this result tra nsmitted reference range : <=0.5. The reference r nilam was not used to int erpret this result as normal/abnormal . [facility] AND [id number] 18:07:00 Test Item Value Reference Range Interpretation Comments UA Leuk Est (test code Small *ABN*(11/03/14 = UA Leuk Est) 1:07 PM) [facility] AND [id number] 18:07:00 Test Item Value Reference Range Interpretation Comments UA Ketones (test code Negative *NA*(11/03/14 = UA Ketones) 1:07 PM) [facility] AND [id number] 18:07:00 Test Item Value Reference Range Interpretation Comments UA Turbidity (test code Cloudy *ABN*(11/03/14 = UA Turbidity) 1:07 PM) [facility] AND [id number] 18:07:00 Test Item Value Reference Range Interpretation Comments UA Spec Grav (test code = UA Spec 1.010 1 Grav) [facility] AND [id number] 18:07:00 Test Item Value Reference Range Interpretation Comments UA Protein (test code = Trace *ABN*(11/03/14 UA Protein) 1:07 PM) [facility] AND [id number] 18:07:00 Test Item Value Reference Range Interpretation Comments UA pH (test code = UA pH) 7.5 1 5.0-8.0 [facility] AND [id number] 18:07:00 Test Item Value Reference Range Interpretation Comments UA Color (test code = Yellow *NA*(11/03/14 UA Color) 1:07 PM) [facility] AND [id number] 18:07:00 Test Item Value Reference Range Interpretation Comments UA Glucose (test code Negative (11/03/14 1:07 = UA Glucose) PM) [facility] AND [id number] 18:07:00 Test Item Value Reference Range Interpretation Comments UA Blood (test code = Negative (11/03/14 1:07 UA Blood) PM) [facility] AND [id number] 18:07:00 Test Item Value Reference Range Interpretation Comments UA Bili (test code = Negative *NA*(11/03/14 UA Bili) 1:07 PM) [facility] AND [id number] 18:07:00 Test Item Value Reference Range Interpretation Comments UA Urobilinogen (test code = UA 1.0 0.1-1.0 Urobilinogen) [facility] AND [id number] 18:07:00 Test Item Value Reference Range Interpretation Comments UA Nitrite (test code Negative (11/03/14 1:07 = UA Nitrite) PM) [facility] AND [id number] 18:07:00 Test Item Value Reference Range Interpretation Comments UA RBC (test code = 0-2 /HPF See_Comment [Automa kuldip message] The UA RBC) system which ge nerated this result tra nsmitted reference range : <=2. The reference range was not used to interpr et this result as abiodun l/abnormal. [facility] AND [id number] 18:07:00 Test Item Value Reference Range Interpretation Comments UA WBC (test code = UA WBC) 11-20 /HPF [facility] AND [id number] 18:07:00 Test Item Value Reference Range Interpretation Comments UA Sq Epi (test code = UA Sq Epi) Few /LPF [facility] AND [id number] 18:07:00 Test Item Value Reference Range Interpretation Comments UA Bacteria (test code = UA Many /HPF Bacteria) [facility] [id number] 18:07:00 Test Item Value Reference Range Interpretation Comments U Preg (test code = U Negative (11/03/14 1:07 Preg) PM) [facility] [id number] 18:07:00 Test Item Value Reference Range Interpretation Comments UA Leuk Est (test code Small *ABN*(11/03/14 = UA Leuk Est) 1:07 PM) [facility] [id number] 18:07:00 Test Item Value Reference Range Interpretation Comments UA Ketones (test code Negative *NA*(11/03/14 = UA Ketones) 1:07 PM) [facility] [id number] 18:07:00 Test Item Value Reference Range Interpretation Comments UA Turbidity (test code Cloudy *ABN*(11/03/14 = UA Turbidity) 1:07 PM) [facility] [id number] 18:07:00 Test Item Value Reference Range Interpretation Comments UA Spec Grav (test code = UA Spec 1.010 1 Grav) [facility] AND [id number] 18:07:00 Test Item Value Reference Range Interpretation Comments UA Protein (test code = Trace *ABN*(11/03/14 UA Protein) 1:07 PM) [facility] AND [id number] 18:07:00 Test Item Value Reference Range Interpretation Comments UA pH (test code = UA pH) 7.5 1 5.0-8.0 [facility] AND [id number] 18:07:00 Test Item Value Reference Range Interpretation Comments UA Color (test code = Yellow *NA*(11/03/14 UA Color) 1:07 PM) [facility] [id number] 18:07:00 Test Item Value Reference Range Interpretation Comments UA Glucose (test code Negative (11/03/14 1:07 = UA Glucose) PM) [facility] [id number] 18:07:00 Test Item Value Reference Range Interpretation Comments UA Blood (test code = Negative (11/03/14 1:07 UA Blood) PM) [facility] [id number] 18:07:00 Test Item Value Reference Range Interpretation Comments UA Bili (test code = Negative *NA*(11/03/14 UA Bili) 1:07 PM) [facility] [id number] 18:07:00 Test Item Value Reference Range Interpretation Comments UA Urobilinogen (test code = UA 1.0 0.1-1.0 Urobilinogen) [facility] [id number] 18:07:00 Test Item Value Reference Range Interpretation Comments UA Nitrite (test code Negative (11/03/14 1:07 = UA Nitrite) PM) [facility] [id number] 18:07:00 Test Item Value Reference Range Interpretation Comments UA RBC (test code = 0-2 /HPF See_Comment [Automa kuldip message] The UA RBC) system which ge nerated this result tra nsmitted reference range : <=2. The reference range was not used to interpr et this result as abiodun l/abnormal. [facility] AND [id number] 18:07:00 Test Item Value Reference Range Interpretation Comments UA WBC (test code = UA WBC) 11-20 /HPF [facility] AND [id number] 18:07:00 Test Item Value Reference Range Interpretation Comments UA Sq Epi (test code = UA Sq Epi) Few /LPF [facility] AND [id number] 18:07:00 Test Item Value Reference Range Interpretation Comments UA Bacteria (test code = UA Many /HPF Bacteria) [facility] [id number] 18:07:00 Test Item Value Reference Range Interpretation Comments U Preg (test code = U Negative (11/03/14 1:07 Preg) PM) [facility] AND [id number] 18:07:00 Test Item Value Reference Range Interpretation Comments UA Leuk Est (test code Small *ABN*(11/03/14 = UA Leuk Est) 1:07 PM) [facility] [id number] 18:07:00 Test Item Value Reference Range Interpretation Comments UA Ketones (test code Negative *NA*(11/03/14 = UA Ketones) 1:07 PM) [facility] [id number] 18:07:00 Test Item Value Reference Range Interpretation Comments UA Turbidity (test code Cloudy *ABN*(11/03/14 = UA Turbidity) 1:07 PM) [facility] [id number] 18:07:00 Test Item Value Reference Range Interpretation Comments UA Spec Grav (test code = UA Spec 1.010 1 Grav) [facility] AND [id number] 18:07:00 Test Item Value Reference Range Interpretation Comments UA Protein (test code = Trace *ABN*(11/03/14 UA Protein) 1:07 PM) [facility] AND [id number] 18:07:00 Test Item Value Reference Range Interpretation Comments UA pH (test code = UA pH) 7.5 1 5.0-8.0 [facility] AND [id number] 18:07:00 Test Item Value Reference Range Interpretation Comments UA Color (test code = Yellow *NA*(11/03/14 UA Color) 1:07 PM) [facility] AND [id number] 18:07:00 Test Item Value Reference Range Interpretation Comments UA Glucose (test code Negative (11/03/14 1:07 = UA Glucose) PM) [facility] AND [id number] 18:07:00 Test Item Value Reference Range Interpretation Comments UA Blood (test code = Negative (11/03/14 1:07 UA Blood) PM) [facility] AND [id number] 18:07:00 Test Item Value Reference Range Interpretation Comments UA Bili (test code = Negative *NA*(11/03/14 UA Bili) 1:07 PM) [facility] AND [id number] 18:07:00 Test Item Value Reference Range Interpretation Comments UA Urobilinogen (test code = UA 1.0 0.1-1.0 Urobilinogen) [facility] AND [id number] 18:07:00 Test Item Value Reference Range Interpretation Comments UA Nitrite (test code Negative (11/03/14 1:07 = UA Nitrite) PM) [facility] AND [id number] 18:07:00 Test Item Value Reference Range Interpretation Comments UA RBC (test code = 0-2 /HPF See_Comment [Automa kuldip message] The UA RBC) system which ge nerated this result tra nsmitted reference range : <=2. The reference range was not used to interpr et this result as abiodun l/abnormal. [facility] AND [id number] 18:07:00 Test Item Value Reference Range Interpretation Comments UA WBC (test code = UA WBC) 11-20 /HPF [facility] [id number] 18:07:00 Test Item Value Reference Range Interpretation Comments UA Sq Epi (test code = UA Sq Epi) Few /LPF [facility] [id number] 18:07:00 Test Item Value Reference Range Interpretation Comments UA Bacteria (test code = UA Many /HPF Bacteria) [facility] [id number] 18:07:00 Test Item Value Reference Range Interpretation Comments U Preg (test code = U Negative (11/03/14 1:07 Preg) PM) [facility] AND [id number] 18:07:00 Test Item Value Reference Range Interpretation Comments UA Leuk Est (test code Small *ABN*(11/03/14 = UA Leuk Est) 1:07 PM) [facility] [id number] 18:07:00 Test Item Value Reference Range Interpretation Comments UA Ketones (test code Negative *NA*(11/03/14 = UA Ketones) 1:07 PM) [facility] AND [id number] 18:07:00 Test Item Value Reference Range Interpretation Comments UA Turbidity (test code Cloudy *ABN*(11/03/14 = UA Turbidity) 1:07 PM) [facility] AND [id number] 18:07:00 Test Item Value Reference Range Interpretation Comments UA Spec Grav (test code = UA Spec 1.010 1 Grav) [facility] AND [id number] 18:07:00 Test Item Value Reference Range Interpretation Comments UA Protein (test code = Trace *ABN*(11/03/14 UA Protein) 1:07 PM) [facility] [id number] 18:07:00 Test Item Value Reference Range Interpretation Comments UA pH (test code = UA pH) 7.5 1 5.0-8.0 [facility] AND [id number] 18:07:00 Test Item Value Reference Range Interpretation Comments UA Color (test code = Yellow *NA*(11/03/14 UA Color) 1:07 PM) [facility] AND [id number] 18:07:00 Test Item Value Reference Range Interpretation Comments UA Glucose (test code Negative (11/03/14 1:07 = UA Glucose) PM) [facility] AND [id number] 18:07:00 Test Item Value Reference Range Interpretation Comments UA Blood (test code = Negative (11/03/14 1:07 UA Blood) PM) [facility] AND [id number] 18:07:00 Test Item Value Reference Range Interpretation Comments UA Bili (test code = Negative *NA*(11/03/14 UA Bili) 1:07 PM) [facility] AND [id number] 18:07:00 Test Item Value Reference Range Interpretation Comments UA Urobilinogen (test code = UA 1.0 0.1-1.0 Urobilinogen) [facility] AND [id number] 18:07:00 Test Item Value Reference Range Interpretation Comments UA Nitrite (test code Negative (11/03/14 1:07 = UA Nitrite) PM) [facility] AND [id number] 18:07:00 Test Item Value Reference Range Interpretation Comments UA RBC (test code = 0-2 /HPF See_Comment [Automa kuldip message] The UA RBC) system which ge nerated this result tra nsmitted reference range : <=2. The reference range was not used to interpr et this result as abiodun l/abnormal. [facility] AND [id number] 18:07:00 Test Item Value Reference Range Interpretation Comments UA WBC (test code = UA WBC) 11-20 /HPF [facility] AND [id number] 18:07:00 Test Item Value Reference Range Interpretation Comments UA Sq Epi (test code = UA Sq Epi) Few /LPF [facility] AND [id number] 18:07:00 Test Item Value Reference Range Interpretation Comments UA Bacteria (test code = UA Many /HPF Bacteria) [facility] [id number] 18:07:00 Test Item Value Reference Range Interpretation Comments U Preg (test code = U Negative (11/03/14 1:07 Preg) PM) [facility] [id number] 16:45:00 Test Item Value Reference Range Interpretation Comments Troponin-I (test code no gt See_Comment [Auto mated message] The = Troponin-I) system which g enerated this result transmit kuldip reference range : <=0.40. The reference r nilam was not used to interpr et this result as abiodun l/abnormal. [facility] [employer]2015-08-11 16:45:00 Test Item Value Reference Range Interpretation Comments Troponin-I (test code no gt See_Comment [Auto mated message] The = Troponin-I) system which g enerated this result transmit kuldip reference range : <=0.40. The reference r nilam was not used to interpr et this result as abiodun l/abnormal. [facility] [employer]2015-08-11 16:45:00 Test Item Value Reference Range Interpretation Comments Troponin-I (test code no gt See_Comment [Auto mated message] The = Troponin-I) system which g enerated this result transmit kuldip reference range : <=0.40. The reference r nilam was not used to interpr et this result as abiodun l/abnormal. [facility] [employer]2015-08-11 16:45:00 Test Item Value Reference Range Interpretation Comments Troponin-I (test code no gt See_Comment [Auto mated message] The = Troponin-I) system which g enerated this result transmit kuldip reference range : <=0.40. The reference r nilam was not used to interpr et this result as abiodun l/abnormal. [facility] [employer]2015-08-11 14:00:00 Test Item Value Reference Range Interpretation Comments Troponin-I (test code no gt See_Comment [Auto mated message] The = Troponin-I) system which g enerated this result transmit kuldip reference range : <=0.40. The reference r nilam was not used to interpr et this result as abiodun l/abnormal. [facility] [employer]2015-08-11 14:00:00 Test Item Value Reference Range Interpretation Comments Total CK (test code = Total CK) 196 12-191 [facility] [employer]2015-08-11 14:00:00 Test Item Value Reference Range Interpretation Comments CK MB (test code = CK MB) 0.5 0.5-3.6 [facility] [employer]2015-08-11 14:00:00 Test Item Value Reference Range Interpretation Comments proBNP (test code = 18 See_Comment [Automa kuldip message] The proBNP) system which ge nerated this result tra nsmitted reference range : <=125. The reference r nilam was not used to int erpret this result as abiodun l/abnormal. [facility] [id number] 14:00:00 Test Item Value Reference Range Interpretation Comments CK MB Index (test 0.3 See_Comment [Automate d message] The code = CK MB Index) system w hich generated this result transmit kuldip reference range : <=2.5. The reference range was not used to interpr et this result as abiodun l/abnormal. [facility] [id number] 14:00:00 Test Item Value Reference Range Interpretation Comments eGFR (test code = eGFR) 111 [facility] [id number] 14:00:00 Test Item Value Reference Range Interpretation Comments Chloride Lvl (test code = Chloride Lvl) 103 95-109 [facility] [id number] 14:00:00 Test Item Value Reference Range Interpretation Comments BUN (test code = BUN) 6 7-22 [facility] [id number] 14:00:00 Test Item Value Reference Range Interpretation Comments Creatinine Lvl (test code = Creatinine 0.8 0.5-1.4 Lvl) [facility] [id number] 14:00:00 Test Item Value Reference Range Interpretation Comments Sodium Lvl (test code = Sodium Lvl) 138 135-145 [facility] [id number] 14:00:00 Test Item Value Reference Range Interpretation Comments Potassium Lvl (test code = Potassium 3.7 3.5-5.1 Lvl) [facility] [id number] 14:00:00 Test Item Value Reference Range Interpretation Comments Calcium Lvl (test code = Calcium Lvl) 9.5 8.5-10.5 [facility] [id number] 14:00:00 Test Item Value Reference Range Interpretation Comments Total Protein (test code = Total 8.2 6.4-8.4 Protein) [facility] [employer] [place] [id number] 14:00:00 Test Item Value Reference Range Interpretation Comments CO2 (test code = CO2) 28 24-32 [facility] [id number] 14:00:00 Test Item Value Reference Range Interpretation Comments Bili Total (test code = Bili Total) 0.5 0.2-1.3 [facility]2015-08-11 14:00:00 Test Item Value Reference Range Interpretation Comments AGAP (test code = AGAP) 10.7 10.0-20.0 [facility]2015-08-11 14:00:00 Test Item Value Reference Range Interpretation Comments B/C Ratio (test code = B/C Ratio) 8 6-25 [facility]2015-08-11 14:00:00 Test Item Value Reference Range Interpretation Comments Globulin (test code = Globulin) 5.0 2.0-4.0 [facility]2015-08-11 14:00:00 Test Item Value Reference Range Interpretation Comments A/G Ratio (test code = A/G Ratio) 0.6 0.7-1.6 [facility]2015-08-11 14:00:00 Test Item Value Reference Range Interpretation Comments AST (test code = AST) 16 See_Comment [Auto mated message] The system which ge nerated this result transmit kuldip reference range : <=37. The reference range was not used to interpr et this result as abiodun l/abnormal. [facility]2015-08-11 14:00:00 Test Item Value Reference Range Interpretation Comments Glucose Lvl (test code = Glucose Lvl) 88 70-99 [facility]2015-08-11 14:00:00 Test Item Value Reference Range Interpretation Comments ALT (test code = ALT) 20 See_Comment [Auto mated message] The system which ge nerated this result transmit kuldip reference range : <=65. The reference range was not used to interpr et this result as abiodun l/abnormal. [facility]2015-08-11 14:00:00 Test Item Value Reference Range Interpretation Comments Albumin Lvl (test code = Albumin Lvl) 3.2 3.5-5.0 [facility]2015-08-11 14:00:00 Test Item Value Reference Range Interpretation Comments Alk Phos (test code = Alk Phos) 85 39-136 [facility]SwizokbVVWTTTDRSZ3312-56-83 14:00:00 Test Item Value Reference Range Interpretation Comments Basophils (test code = 0.8 See_Comment [Aut omated message] The Basophils) system which ge nerated this result tra nsmitted reference range : <=1.0. The reference r nilam was not used to int erpret this result as normal/abnormal . [facility] SystemPerjjjdRYFOSNAFFI5499-70-06 14:00:00 Test Item Value Reference Range Interpretation Comments Lymphocytes # (test code = Lymphocytes 1.3 1.0-5.5 #) [facility] SystemPabjxmjYGNIBRZNTG4145-31-91 14:00:00 Test Item Value Reference Range Interpretation Comments Segs-Bands # (test code = Segs-Bands #) 2.4 1.5-8.1 [facility] SystemOtftqxmHLRYKZMAKL4957-94-26 14:00:00 Test Item Value Reference Range Interpretation Comments Monocytes # (test code 0.4 See_Comment [Aut omated message] The = Monocytes #) system which generated this result tra nsmitted reference range : <=0.8. The reference r nilam was not used to int erpret this result as normal/abnormal . [facility] SystemUrldapqBZHRZAOLDM4483-97-50 14:00:00 Test Item Value Reference Range Interpretation Comments Microcyte (test code = 3+ *NA*(11/03/14 9:00 Microcyte) AM) [facility] SystemNoexkhkETQYLHQCGO2709-25-59 14:00:00 Test Item Value Reference Range Interpretation Comments Eosinophils # (test code 0.1 See_Comment [A utomated message] The = Eosinophils #) system whic h generated this result tra nsmitted reference range : <=0.5. The reference r nilam was not used to int erpret this result as normal/abnormal . [facility] SystemEjheafaFDSDNLNZVG3928-53-30 14:00:00 Test Item Value Reference Range Interpretation Comments Segs (test code = Segs) 57.0 45.0-75.0 [facility] SystemRgpizoxCRFDHGFLIM2483-72-21 14:00:00 Test Item Value Reference Range Interpretation Comments Lymphocytes (test code = Lymphocytes) 30.7 20.0-40.0 [facility] SystemSjyqmphRUZJHPYMOD7822-24-57 14:00:00 Test Item Value Reference Range Interpretation Comments Eosinophils (test code = 1.7 See_Comment [A utomated message] The Eosinophils) system which ge nerated this result tra nsmitted reference range : <=4.0. The reference r nilam was not used to int erpret this result as normal/abnormal . [facility] SystemSlgnmcsCLDONKWVPF6686-21-33 14:00:00 Test Item Value Reference Range Interpretation Comments Monocytes (test code = Monocytes) 9.8 2.0-12.0 [facility] SystemVghtawoHVNPSVGPDK5579-44-80 14:00:00 Test Item Value Reference Range Interpretation Comments Plt Morph (test code = Normal (11/03/14 9:00 Plt Morph) AM) [facility] SystemJasslndZCJOXBKWTX0682-15-10 14:00:00 Test Item Value Reference Range Interpretation Comments MPV (test code = MPV) 7.6 7.4-10.4 [facility] SystemHpcswqxKLQCLIZGMO3301-40-07 14:00:00 Test Item Value Reference Range Interpretation Comments Platelet (test code = Platelet) 259 133-450 [facility] SystemXjljidtNCKBEDCDGX6467-92-70 14:00:00 Test Item Value Reference Range Interpretation Comments MCH (test code = MCH) 20.5 pg 27.0-31.0 [facility] SystemOadkfypQKZRXQDFWH0020-51-07 14:00:00 Test Item Value Reference Range Interpretation Comments MCHC (test code = MCHC) 30.3 32.0-36.0 [facility] SystemBgizgxoVZZMMRLCZD2382-16-99 14:00:00 Test Item Value Reference Range Interpretation Comments RDW (test code = RDW) 17.4 11.5-14.5 [facility] SystemIdnzrsjGFKNIXWVTS4516-97-45 14:00:00 Test Item Value Reference Range Interpretation Comments Hgb (test code = Hgb) 8.1 12.0-16.0 [facility] SystemIhaymbrYIMHYLULIJ6595-35-35 14:00:00 Test Item Value Reference Range Interpretation Comments Hct (test code = Hct) 26.7 36.0-48.0 [facility] SystemHwqjlkvRCQVYULBRW6668-81-23 14:00:00 Test Item Value Reference Range Interpretation Comments MCV (test code = MCV) 67.6 80.0-98.0 [facility] SystemWegkevdEXLHCUIVZM4461-69-38 14:00:00 Test Item Value Reference Range Interpretation Comments RBC (test code = RBC) 3.95 4.20-5.40 [facility] SystemVbqjhecZOBUNQLAAM9477-19-76 14:00:00 Test Item Value Reference Range Interpretation Comments WBC (test code = WBC) 4.2 3.7-10.4 [facility] SystemCzhuuxlLJNHBQITBE9774-88-20 14:00:00 Test Item Value Reference Range Interpretation Comments D-Dimer (test code = D-Dimer) 0.27 [facility] IFASWGV[facility] 14:00:00 Test Item Value Reference Range Interpretation Comments Troponin-I (test code no gt See_Comment [Auto mated message] The = Troponin-I) system which g enerated this result transmit kuldip reference range : <=0.40. The reference r nilam was not used to interpr et this result as abiodun l/abnormal. [facility] FRTDGRA8946-10-23 14:00:00 Test Item Value Reference Range Interpretation Comments Total CK (test code = Total CK) 196 12-191 [facility] VEEFOAN0023-22-86 14:00:00 Test Item Value Reference Range Interpretation Comments CK MB (test code = CK MB) 0.5 0.5-3.6 [facility]CARVisual NetworksAC GQILUEC3841-37-35 14:00:00 Test Item Value Reference Range Interpretation Comments proBNP (test code = 18 See_Comment [Automa kuldip message] The proBNP) system which ge nerated this result tra nsmitted reference range : <=125. The reference r nilam was not used to int erpret this result as abiodun l/abnormal. [facility] YOSHZPV4713-90-58 14:00:00 Test Item Value Reference Range Interpretation Comments CK MB Index (test 0.3 See_Comment [Automate d message] The code = CK MB Index) system w [facility] generated this result transmit kuldip reference range : <=2.5. The reference range was not used to interpr et this result as abiodun l/abnormal. [facility] [id number] 14:00:00 Test Item Value Reference Range Interpretation Comments eGFR (test code = eGFR) 111 [facility] [id number] 14:00:00 Test Item Value Reference Range Interpretation Comments Chloride Lvl (test code = Chloride Lvl) 103 95-109 [facility] [id number] 14:00:00 Test Item Value Reference Range Interpretation Comments BUN (test code = BUN) 6 7-22 [facility] [place] [id number] 14:00:00 Test Item Value Reference Range Interpretation Comments Creatinine Lvl (test code = Creatinine 0.8 0.5-1.4 Lvl) [facility]2015-08-11 14:00:00 Test Item Value Reference Range Interpretation Comments Sodium Lvl (test code = Sodium Lvl) 138 135-145 [facility]2015-08-11 14:00:00 Test Item Value Reference Range Interpretation Comments Potassium Lvl (test code = Potassium 3.7 3.5-5.1 Lvl) [facility]2015-08-11 14:00:00 Test Item Value Reference Range Interpretation Comments Calcium Lvl (test code = Calcium Lvl) 9.5 8.5-10.5 [facility]2015-08-11 14:00:00 Test Item Value Reference Range Interpretation Comments Total Protein (test code = Total 8.2 6.4-8.4 Protein) [facility]2015-08-11 14:00:00 Test Item Value Reference Range Interpretation Comments CO2 (test code = CO2) 28 24-32 [facility]2015-08-11 14:00:00 Test Item Value Reference Range Interpretation Comments Bili Total (test code = Bili Total) 0.5 0.2-1.3 [facility]2015-08-11 14:00:00 Test Item Value Reference Range Interpretation Comments AGAP (test code = AGAP) 10.7 10.0-20.0 [facility]2015-08-11 14:00:00 Test Item Value Reference Range Interpretation Comments B/C Ratio (test code = B/C Ratio) 8 6-25 [facility]2015-08-11 14:00:00 Test Item Value Reference Range Interpretation Comments Globulin (test code = Globulin) 5.0 2.0-4.0 [facility]2015-08-11 14:00:00 Test Item Value Reference Range Interpretation Comments A/G Ratio (test code = A/G Ratio) 0.6 0.7-1.6 [facility]2015-08-11 14:00:00 Test Item Value Reference Range Interpretation Comments AST (test code = AST) 16 See_Comment [Auto mated message] The system which ge nerated this result transmit kuldip reference range : <=37. The reference range was not used to interpr et this result as abiodun l/abnormal. [facility]2015-08-11 14:00:00 Test Item Value Reference Range Interpretation Comments Glucose Lvl (test code = Glucose Lvl) 88 70-99 [facility]2015-08-11 14:00:00 Test Item Value Reference Range Interpretation Comments ALT (test code = ALT) 20 See_Comment [Auto mated message] The system which ge nerated this result transmit kuldip reference range : <=65. The reference range was not used to interpr et this result as abiodun l/abnormal. [facility]2015-08-11 14:00:00 Test Item Value Reference Range Interpretation Comments Albumin Lvl (test code = Albumin Lvl) 3.2 3.5-5.0 [facility]2015-08-11 14:00:00 Test Item Value Reference Range Interpretation Comments Alk Phos (test code = Alk Phos) 85 39-136 [facility] SystemHibmhdmDSZGHRANTB0451-06-46 14:00:00 Test Item Value Reference Range Interpretation Comments Basophils (test code = 0.8 See_Comment [Aut omated message] The Basophils) system which ge nerated this result tra nsmitted reference range : <=1.0. The reference r nilam was not used to int erpret this result as normal/abnormal . [facility] SystemPzpitoqTISPEJVTYE6408-73-13 14:00:00 Test Item Value Reference Range Interpretation Comments Lymphocytes # (test code = Lymphocytes 1.3 1.0-5.5 #) [facility] SystemXgepfmeJQZYAELTRS2923-72-41 14:00:00 Test Item Value Reference Range Interpretation Comments Segs-Bands # (test code = Segs-Bands #) 2.4 1.5-8.1 [facility] SystemBcupkfnJJWWEKRTBI0036-25-80 14:00:00 Test Item Value Reference Range Interpretation Comments Monocytes # (test code 0.4 See_Comment [Aut omated message] The = Monocytes #) system which generated this result tra nsmitted reference range : <=0.8. The reference r nilam was not used to int erpret this result as normal/abnormal . [facility] SystemFfvirzfJZHABJQHRE3480-03-53 14:00:00 Test Item Value Reference Range Interpretation Comments Microcyte (test code = 3+ *NA*(11/03/14 9:00 Microcyte) AM) [facility] SystemGkciwidYFKZMCAWDF5717-87-12 14:00:00 Test Item Value Reference Range Interpretation Comments Eosinophils # (test code 0.1 See_Comment [A utomated message] The = Eosinophils #) system whic h generated this result tra nsmitted reference range : <=0.5. The reference r nilam was not used to int erpret this result as normal/abnormal . [facility] SystemWegeysxJQIASKHYXH6187-16-03 14:00:00 Test Item Value Reference Range Interpretation Comments Segs (test code = Segs) 57.0 45.0-75.0 [facility] SystemJjzijojAYGHLUSAKD3041-56-23 14:00:00 Test Item Value Reference Range Interpretation Comments Lymphocytes (test code = Lymphocytes) 30.7 20.0-40.0 [facility] SystemBmgfstkABVBSQVRIE0083-45-67 14:00:00 Test Item Value Reference Range Interpretation Comments Eosinophils (test code = 1.7 See_Comment [A utomated message] The Eosinophils) system which ge nerated this result tra nsmitted reference range : <=4.0. The reference r nilam was not used to int erpret this result as normal/abnormal . [facility] SystemSmedvlpTXGWFVHNTW8484-05-69 14:00:00 Test Item Value Reference Range Interpretation Comments Monocytes (test code = Monocytes) 9.8 2.0-12.0 [facility] SystemLzmztkaCXIOQQZGAO7691-48-03 14:00:00 Test Item Value Reference Range Interpretation Comments Plt Morph (test code = Normal (11/03/14 9:00 Plt Morph) AM) [facility] SystemAwnylcwKLIRYZRAZG6062-50-14 14:00:00 Test Item Value Reference Range Interpretation Comments MPV (test code = MPV) 7.6 7.4-10.4 [facility] SystemDtuwszgBEHBULDDSR3664-45-05 14:00:00 Test Item Value Reference Range Interpretation Comments Platelet (test code = Platelet) 259 133-450 [facility] SystemPohkawtUWJHCGJZJS5314-34-97 14:00:00 Test Item Value Reference Range Interpretation Comments MCH (test code = MCH) 20.5 pg 27.0-31.0 [facility] SystemPnsppnjROIHMKXLVA1403-60-42 14:00:00 Test Item Value Reference Range Interpretation Comments MCHC (test code = MCHC) 30.3 32.0-36.0 [facility] SystemJtkxzcdWMXRRYRJTD1789-27-42 14:00:00 Test Item Value Reference Range Interpretation Comments RDW (test code = RDW) 17.4 11.5-14.5 [facility]FWQSGOORJC1417-15-27 14:00:00 Test Item Value Reference Range Interpretation Comments Hgb (test code = Hgb) 8.1 12.0-16.0 [facility]QyecyqzJNEJMUAIAS6773-16-14 14:00:00 Test Item Value Reference Range Interpretation Comments Hct (test code = Hct) 26.7 36.0-48.0 [facility] SystemNsnvpyyFSBXZJJMRV2220-16-99 14:00:00 Test Item Value Reference Range Interpretation Comments MCV (test code = MCV) 67.6 80.0-98.0 [facility] SystemWbqpgnhWLDULJQMFO7839-20-93 14:00:00 Test Item Value Reference Range Interpretation Comments RBC (test code = RBC) 3.95 4.20-5.40 [facility] SystemYjtqckyDOUYPAOEPB7213-29-81 14:00:00 Test Item Value Reference Range Interpretation Comments WBC (test code = WBC) 4.2 3.7-10.4 [facility] SystemLyvnkzqJOZCPJIBCM9532-53-50 14:00:00 Test Item Value Reference Range Interpretation Comments D-Dimer (test code = D-Dimer) 0.27 [facility] EBCTLFJ6715-79-76 14:00:00 Test Item Value Reference Range Interpretation Comments Troponin-I (test code no gt See_Comment [Auto mated message] The = Troponin-I) system which g enerated this result transmit kuldip reference range : <=0.40. The reference r nilam was not used to interpr et this result as abiodun l/abnormal. [facility] UFSTPEE1923-32-50 14:00:00 Test Item Value Reference Range Interpretation Comments Total CK (test code = Total CK) 196 12-191 [facility] HLWPJCL6248-64-05 14:00:00 Test Item Value Reference Range Interpretation Comments CK MB (test code = CK MB) 0.5 0.5-3.6 [facility] [id number] 14:00:00 Test Item Value Reference Range Interpretation Comments proBNP (test code = 18 See_Comment [Automa kuldip message] The proBNP) system which ge nerated this result tra nsmitted reference range : <=125. The reference r nilam was not used to int erpret this result as abiodun l/abnormal. [facility] [id number] 14:00:00 Test Item Value Reference Range Interpretation Comments CK MB Index (test 0.3 See_Comment [Automate d message] The code = CK MB Index) system w [place] generated this result transmit kuldip reference range : <=2.5. The reference range was not used to interpr et this result as abiodun l/abnormal. [facility] [id number] 14:00:00 Test Item Value Reference Range Interpretation Comments eGFR (test code = eGFR) 111 [facility] [place] [id number] 14:00:00 Test Item Value Reference Range Interpretation Comments Chloride Lvl (test code = Chloride Lvl) 103 95-109 [facility]2015-08-11 14:00:00 Test Item Value Reference Range Interpretation Comments BUN (test code = BUN) 6 7-22 [facility]2015-08-11 14:00:00 Test Item Value Reference Range Interpretation Comments Creatinine Lvl (test code = Creatinine 0.8 0.5-1.4 Lvl) [facility] [id number] 14:00:00 Test Item Value Reference Range Interpretation Comments Sodium Lvl (test code = Sodium Lvl) 138 135-145 [facility] [id number] 14:00:00 Test Item Value Reference Range Interpretation Comments Potassium Lvl (test code = Potassium 3.7 3.5-5.1 Lvl) [facility] [place] [id number] 14:00:00 Test Item Value Reference Range Interpretation Comments Calcium Lvl (test code = Calcium Lvl) 9.5 8.5-10.5 [facility] [id number] 14:00:00 Test Item Value Reference Range Interpretation Comments Total Protein (test code = Total 8.2 6.4-8.4 Protein) [facility] [place] [id number] 14:00:00 Test Item Value Reference Range Interpretation Comments CO2 (test code = CO2) 28 24-32 [facility] [place] [id number] 14:00:00 Test Item Value Reference Range Interpretation Comments Bili Total (test code = Bili Total) 0.5 0.2-1.3 [facility] [id number] 14:00:00 Test Item Value Reference Range Interpretation Comments AGAP (test code = AGAP) 10.7 10.0-20.0 [facility]2015-08-11 14:00:00 Test Item Value Reference Range Interpretation Comments B/C Ratio (test code = B/C Ratio) 8 6-25 [facility]2015-08-11 14:00:00 Test Item Value Reference Range Interpretation Comments Globulin (test code = Globulin) 5.0 2.0-4.0 [facility]2015-08-11 14:00:00 Test Item Value Reference Range Interpretation Comments A/G Ratio (test code = A/G Ratio) 0.6 0.7-1.6 [facility]2015-08-11 14:00:00 Test Item Value Reference Range Interpretation Comments AST (test code = AST) 16 See_Comment [Auto mated message] The system which ge nerated this result transmit kuldip reference range : <=37. The reference range was not used to interpr et this result as abiodun l/abnormal. [facility]2015-08-11 14:00:00 Test Item Value Reference Range Interpretation Comments Glucose Lvl (test code = Glucose Lvl) 88 70-99 [facility]2015-08-11 14:00:00 Test Item Value Reference Range Interpretation Comments ALT (test code = ALT) 20 See_Comment [Auto mated message] The system which ge nerated this result transmit kuldip reference range : <=65. The reference range was not used to interpr et this result as abiodun l/abnormal. [facility]2015-08-11 14:00:00 Test Item Value Reference Range Interpretation Comments Albumin Lvl (test code = Albumin Lvl) 3.2 3.5-5.0 [facility]2015-08-11 14:00:00 Test Item Value Reference Range Interpretation Comments Alk Phos (test code = Alk Phos) 85 39-136 [facility] SystemFywqxtiQHNFLUSCIY2413-89-50 14:00:00 Test Item Value Reference Range Interpretation Comments Basophils (test code = 0.8 See_Comment [Aut omated message] The Basophils) system which ge nerated this result tra nsmitted reference range : <=1.0. The reference r nilam was not used to int erpret this result as normal/abnormal . [facility] SystemMfukqpgHGEWJGFZKB0732-35-87 14:00:00 Test Item Value Reference Range Interpretation Comments Lymphocytes # (test code = Lymphocytes 1.3 1.0-5.5 #) [facility] SystemPrvszeqGYXHKFRCVI0100-17-34 14:00:00 Test Item Value Reference Range Interpretation Comments Segs-Bands # (test code = Segs-Bands #) 2.4 1.5-8.1 [facility] SystemFyirfjcLGLBHVPPAY9332-85-46 14:00:00 Test Item Value Reference Range Interpretation Comments Monocytes # (test code 0.4 See_Comment [Aut omated message] The = Monocytes #) system which generated this result tra nsmitted reference range : <=0.8. The reference r nilam was not used to int erpret this result as normal/abnormal . [facility] SystemMshxfytNYKMCIKPHN7896-92-96 14:00:00 Test Item Value Reference Range Interpretation Comments Microcyte (test code = 3+ *NA*(11/03/14 9:00 Microcyte) AM) [facility] SystemPxfalkzZSYMWLGHUJ4582-02-90 14:00:00 Test Item Value Reference Range Interpretation Comments Eosinophils # (test code 0.1 See_Comment [A utomated message] The = Eosinophils #) system whic h generated this result tra nsmitted reference range : <=0.5. The reference r nilam was not used to int erpret this result as normal/abnormal . [facility] SystemZtmmlzsTJIQWNUQMY1396-39-35 14:00:00 Test Item Value Reference Range Interpretation Comments Segs (test code = Segs) 57.0 45.0-75.0 [facility] SystemMwtnuduFQIUICQGBE8003-65-66 14:00:00 Test Item Value Reference Range Interpretation Comments Lymphocytes (test code = Lymphocytes) 30.7 20.0-40.0 [facility] SystemEobndwgRHEZJSRQWO1844-64-63 14:00:00 Test Item Value Reference Range Interpretation Comments Eosinophils (test code = 1.7 See_Comment [A utomated message] The Eosinophils) system which ge nerated this result tra nsmitted reference range : <=4.0. The reference r nilam was not used to int erpret this result as normal/abnormal . [facility] SystemDsbxyozDOLGKYPDFS0311-00-65 14:00:00 Test Item Value Reference Range Interpretation Comments Monocytes (test code = Monocytes) 9.8 2.0-12.0 [facility]IwtcykmGEZDJYMBGI5675-18-65 14:00:00 Test Item Value Reference Range Interpretation Comments Plt Morph (test code = Normal (11/03/14 9:00 Plt Morph) AM) [facility] SystemPvzzckyHHWXEFSCVA9287-04-83 14:00:00 Test Item Value Reference Range Interpretation Comments MPV (test code = MPV) 7.6 7.4-10.4 [facility]XjatngqRLTCQBZLSO4159-21-04 14:00:00 Test Item Value Reference Range Interpretation Comments Platelet (test code = Platelet) 259 133-450 [facility] SystemUvviyeiHPSXXEXHCU9104-59-76 14:00:00 Test Item Value Reference Range Interpretation Comments MCH (test code = MCH) 20.5 pg 27.0-31.0 [facility] SystemVrpqpxbDYNNAIRNYF7577-07-11 14:00:00 Test Item Value Reference Range Interpretation Comments MCHC (test code = MCHC) 30.3 32.0-36.0 [facility] SystemYipezheAXPQGTBPVN2251-40-13 14:00:00 Test Item Value Reference Range Interpretation Comments RDW (test code = RDW) 17.4 11.5-14.5 [facility] SystemSxpzhsoNOWFJRKTYH7078-15-46 14:00:00 Test Item Value Reference Range Interpretation Comments Hgb (test code = Hgb) 8.1 12.0-16.0 [facility] SystemPiusirwEDUBQAGZNZ8023-57-40 14:00:00 Test Item Value Reference Range Interpretation Comments Hct (test code = Hct) 26.7 36.0-48.0 [facility] SystemIrkpmagAGTGDOBEVI9394-00-43 14:00:00 Test Item Value Reference Range Interpretation Comments MCV (test code = MCV) 67.6 80.0-98.0 [facility] SystemKflecrdXRRDMTLLRL3917-99-74 14:00:00 Test Item Value Reference Range Interpretation Comments RBC (test code = RBC) 3.95 4.20-5.40 [facility]ed[facility]AHIGLVLDJ5870-31-81 14:00:00 Test Item Value Reference Range Interpretation Comments WBC (test code = WBC) 4.2 3.7-10.4 [facility] SystemCclfmmdDRFXKLJOHN3653-03-71 14:00:00 Test Item Value Reference Range Interpretation Comments D-Dimer (test code = D-Dimer) 0.27 [facility] KDTTGGA8362-82-86 14:00:00 Test Item Value Reference Range Interpretation Comments Troponin-I (test code no gt See_Comment [Auto mated message] The = Troponin-I) system which g enerated this result transmit kuldip reference range : <=0.40. The reference r nilam was not used to interpr et this result as abiodun l/abnormal. [facility] behaview QDKCZHH8103-59-56 14:00:00 Test Item Value Reference Range Interpretation Comments Total CK (test code = Total CK) 196 12-191 [facility] behaview AFUIAJX5297-05-20 14:00:00 Test Item Value Reference Range Interpretation Comments CK MB (test code = CK MB) 0.5 0.5-3.6 [facility] [employer]2015-08-11 14:00:00 Test Item Value Reference Range Interpretation Comments proBNP (test code = 18 See_Comment [Automa kuldip message] The proBNP) system which ge nerated this result tra nsmitted reference range : <=125. The reference r nilam was not used to int erpret this result as abiodun l/abnormal. [facility] [employer]2015-08-11 14:00:00 Test Item Value Reference Range Interpretation Comments CK MB Index (test 0.3 See_Comment [Automate d message] The code = CK MB Index) system w [facility] generated this result transmit kuldip reference range : <=2.5. The reference range was not used to interpr et this result as abiodun l/abnormal. [facility] [employer]2015-08-11 14:00:00 Test Item Value Reference Range Interpretation Comments eGFR (test code = eGFR) 111 [facility] [employer]2015-08-11 14:00:00 Test Item Value Reference Range Interpretation Comments Chloride Lvl (test code = Chloride Lvl) 103 95-109 [facility] [employer]2015-08-11 14:00:00 Test Item Value Reference Range Interpretation Comments BUN (test code = BUN) 6 7-22 [facility] [place] [id number] 14:00:00 Test Item Value Reference Range Interpretation Comments Creatinine Lvl (test code = Creatinine 0.8 0.5-1.4 Lvl) [facility] [employer]2015-08-11 14:00:00 Test Item Value Reference Range Interpretation Comments Sodium Lvl (test code = Sodium Lvl) 138 135-145 [facility]2015-08-11 14:00:00 Test Item Value Reference Range Interpretation Comments Potassium Lvl (test code = Potassium 3.7 3.5-5.1 Lvl) [facility]2015-08-11 14:00:00 Test Item Value Reference Range Interpretation Comments Calcium Lvl (test code = Calcium Lvl) 9.5 8.5-10.5 [facility]2015-08-11 14:00:00 Test Item Value Reference Range Interpretation Comments Total Protein (test code = Total 8.2 6.4-8.4 Protein) [facility]2015-08-11 14:00:00 Test Item Value Reference Range Interpretation Comments CO2 (test code = CO2) 28 24-32 [facility]2015-08-11 14:00:00 Test Item Value Reference Range Interpretation Comments Bili Total (test code = Bili Total) 0.5 0.2-1.3 [facility]2015-08-11 14:00:00 Test Item Value Reference Range Interpretation Comments AGAP (test code = AGAP) 10.7 10.0-20.0 [facility]2015-08-11 14:00:00 Test Item Value Reference Range Interpretation Comments B/C Ratio (test code = B/C Ratio) 8 6-25 [facility]2015-08-11 14:00:00 Test Item Value Reference Range Interpretation Comments Globulin (test code = Globulin) 5.0 2.0-4.0 [facility]2015-08-11 14:00:00 Test Item Value Reference Range Interpretation Comments A/G Ratio (test code = A/G Ratio) 0.6 0.7-1.6 [facility]2015-08-11 14:00:00 Test Item Value Reference Range Interpretation Comments AST (test code = AST) 16 See_Comment [Auto mated message] The system which ge nerated this result transmit kuldip reference range : <=37. The reference range was not used to interpr et this result as abiodun l/abnormal. [facility]2015-08-11 14:00:00 Test Item Value Reference Range Interpretation Comments Glucose Lvl (test code = Glucose Lvl) 88 70-99 [facility]2015-08-11 14:00:00 Test Item Value Reference Range Interpretation Comments ALT (test code = ALT) 20 See_Comment [Auto mated message] The system which ge nerated this result transmit kuldip reference range : <=65. The reference range was not used to interpr et this result as abiodun l/abnormal. [facility]2015-08-11 14:00:00 Test Item Value Reference Range Interpretation Comments Albumin Lvl (test code = Albumin Lvl) 3.2 3.5-5.0 [facility]2015-08-11 14:00:00 Test Item Value Reference Range Interpretation Comments Alk Phos (test code = Alk Phos) 85 39-136 [facility] SystemCqcpttuJHXUUKQYQW1830-69-89 14:00:00 Test Item Value Reference Range Interpretation Comments Basophils (test code = 0.8 See_Comment [Aut omated message] The Basophils) system which ge nerated this result tra nsmitted reference range : <=1.0. The reference r nilam was not used to int erpret this result as normal/abnormal . [facility] SystemQzsnwurJCSLHZEQIG2938-01-00 14:00:00 Test Item Value Reference Range Interpretation Comments Lymphocytes # (test code = Lymphocytes 1.3 1.0-5.5 #) [facility] SystemIdpzmwiIEQOVIVNGY0802-32-55 14:00:00 Test Item Value Reference Range Interpretation Comments Segs-Bands # (test code = Segs-Bands #) 2.4 1.5-8.1 [facility] SystemEjdwxewOFMVDHKNFI7529-44-58 14:00:00 Test Item Value Reference Range Interpretation Comments Monocytes # (test code 0.4 See_Comment [Aut omated message] The = Monocytes #) system which generated this result tra nsmitted reference range : <=0.8. The reference r nilam was not used to int erpret this result as normal/abnormal . [facility] SystemXjlcajtNWBYPPLOLT8140-78-41 14:00:00 Test Item Value Reference Range Interpretation Comments Microcyte (test code = 3+ *NA*(11/03/14 9:00 Microcyte) AM) [facility] SystemGsphattGYWGXABLNA0560-56-60 14:00:00 Test Item Value Reference Range Interpretation Comments Eosinophils # (test code 0.1 See_Comment [A utomated message] The = Eosinophils #) system whic h generated this result tra nsmitted reference range : <=0.5. The reference r nilam was not used to int erpret this result as normal/abnormal . [facility] SystemMaorrseSBXFHSQKIA0112-09-63 14:00:00 Test Item Value Reference Range Interpretation Comments Segs (test code = Segs) 57.0 45.0-75.0 [facility] SystemYteipalWNGOSRQGXA8712-74-46 14:00:00 Test Item Value Reference Range Interpretation Comments Lymphocytes (test code = Lymphocytes) 30.7 20.0-40.0 [facility] SystemXueyqdqUJGVKPFJDR2492-88-39 14:00:00 Test Item Value Reference Range Interpretation Comments Eosinophils (test code = 1.7 See_Comment [A utomated message] The Eosinophils) system which ge nerated this result tra nsmitted reference range : <=4.0. The reference r nilam was not used to int erpret this result as normal/abnormal . [facility] SystemMnmcxqcKIFYAMEUHT5210-42-01 14:00:00 Test Item Value Reference Range Interpretation Comments Monocytes (test code = Monocytes) 9.8 2.0-12.0 [facility] SystemLsvpymrUSXLIIBTZY8104-48-32 14:00:00 Test Item Value Reference Range Interpretation Comments Plt Morph (test code = Normal (11/03/14 9:00 Plt Morph) AM) [facility] SystemWztqwgbXIJDWPYDSQ4265-10-91 14:00:00 Test Item Value Reference Range Interpretation Comments MPV (test code = MPV) 7.6 7.4-10.4 [facility] SystemMwvigqzZCOFHIIFNW9465-50-83 14:00:00 Test Item Value Reference Range Interpretation Comments Platelet (test code = Platelet) 259 133-450 [facility] SystemNseyxtjNFJLMBZBVV5628-67-63 14:00:00 Test Item Value Reference Range Interpretation Comments MCH (test code = MCH) 20.5 pg 27.0-31.0 [facility] SystemVsdyzonOWNVTYRQEM1394-28-61 14:00:00 Test Item Value Reference Range Interpretation Comments MCHC (test code = MCHC) 30.3 32.0-36.0 [facility] SystemLtwnullNELYKWESJY6514-29-69 14:00:00 Test Item Value Reference Range Interpretation Comments RDW (test code = RDW) 17.4 11.5-14.5 [facility] SystemEkimcqxSMZVAQTROQ5608-67-36 14:00:00 Test Item Value Reference Range Interpretation Comments Hgb (test code = Hgb) 8.1 12.0-16.0 [facility] SystemSevswusWKYPQKUBHD5909-22-22 14:00:00 Test Item Value Reference Range Interpretation Comments Hct (test code = Hct) 26.7 36.0-48.0 [facility] SystemFtsulvqGJLLRCNUEJ5610-60-54 14:00:00 Test Item Value Reference Range Interpretation Comments MCV (test code = MCV) 67.6 80.0-98.0 [facility] SystemBmwxgyrHAQBZTINBZ2380-01-85 14:00:00 Test Item Value Reference Range Interpretation Comments RBC (test code = RBC) 3.95 4.20-5.40 [facility] SystemYvlfwtxIIIMCEQQYP2054-41-30 14:00:00 Test Item Value Reference Range Interpretation Comments WBC (test code = WBC) 4.2 3.7-10.4 [facility] SystemGkxtbfmLHVTFLHPQX8576-70-21 14:00:00 Test Item Value Reference Range Interpretation Comments D-Dimer (test code = D-Dimer) 0.27 [facility]prGQWZISHUZ6290-15-92 21:55:00 Test Item Value Reference Range Interpretation Comments U Preg (test code = U Negative (03/07/2013 N Preg) 15:55:00) [facility]QdtvtrxLYPECFEFMP7698-09-29 21:55:00 Test Item Value Reference Range Interpretation Comments UA Bili (test code = Negative *NA*(03/07/2013 UA Bili) 15:55:00) [facility]viewArdeqmtGQNCDFJWZP9461-72-80 21:55:00 Test Item Value Reference Range Interpretation Comments UA Blood (test code = Negative (03/07/2013 N UA Blood) 15:55:00) [facility]viewYfjiuynXOKVMJXSBL8030-29-93 21:55:00 Test Item Value Reference Range Interpretation Comments UA Ketones (test code Negative = UA Ketones) *NA*(03/07/2013 15:55:00) [facility]viewVzcuzaiSCGXMKNZKC9208-54-10 21:55:00 Test Item Value Reference Range Interpretation Comments UA Protein (test code = Trace A UA Protein) *ABN*(03/07/2013 15:55:00) [facility]viewTsjvfilPLBFMIQTHS2256-82-17 21:55:00 Test Item Value Reference Range Interpretation Comments UA Glucose (test code Negative (03/07/2013 N = UA Glucose) 15:55:00) [facility] CenterJgjysrnHXZZPNPHHU3999-84-92 21:55:00 Test Item Value Reference Range Interpretation Comments UA pH (test code = UA pH) 7.5 1 5.0-8.0 N [facility] CenterKagzabvKTAJMJVYXY3485-15-57 21:55:00 Test Item Value Reference Range Interpretation Comments UA Nitrite (test code Negative (03/07/2013 N = UA Nitrite) 15:55:00) [facility] CenterLzveyapURSDRNXOAD8125-45-31 21:55:00 Test Item Value Reference Range Interpretation Comments UA Urobilinogen (test code = UA 1.0 0.1-1.0 N Urobilinogen) [facility] CenterUhexeqvWXIWWFDNNT6372-18-73 21:55:00 Test Item Value Reference Range Interpretation Comments UA Leuk Est (test Negative (03/07/2013 N code = UA Leuk Est) 15:55:00) [facility]viewUhnxstuUXAAANKGZL6465-53-64 21:55:00 Test Item Value Reference Range Interpretation Comments UA Spec Grav (test code = UA Spec 1.015 1 N Grav) [facility] CenterPjorjvvITHIKBROTS6153-57-80 21:55:00 Test Item Value Reference Range Interpretation Comments UA Color (test code = Yellow *NA*(03/07/2013 UA Color) 15:55:00) [facility] CenterPsucskrYKFLSMPTWF0721-60-51 21:55:00 Test Item Value Reference Range Interpretation Comments UA Turbidity (test code = Clear (03/07/2013 N UA Turbidity) 15:55:00) [facility]viewGihgxrfLSTGLDSLUQ8279-00-70 21:55:00 Test Item Value Reference Range Interpretation Comments UA Sq Epi (test code = UA Sq Epi) Few /LPF N [facility] CenterPxgbatnCKNCEZDTMN1728-13-07 21:55:00 Test Item Value Reference Range Interpretation Comments Micro? (test code = Performed (03/07/2013 N Micro?) 15:55:00) [facility] CenterZksiukiCRLBDAQQCK7716-44-82 21:55:00 Test Item Value Reference Range Interpretation Comments UA Bacteria (test code = UA Occasional /HPF N Bacteria) [facility] CenterGvgqcmtAPUUVDUKK8347-01-43 21:55:00 Test Item Value Reference Range Interpretation Comments U Preg (test code = U Negative (03/07/2013 N Preg) 15:55:00) [facility]viewQzqjlumMHOIZNGWCI0748-48-37 21:55:00 Test Item Value Reference Range Interpretation Comments UA Bili (test code = Negative *NA*(03/07/2013 UA Bili) 15:55:00) [facility]viewMwvfvvgXYDQZDYABM5166-54-16 21:55:00 Test Item Value Reference Range Interpretation Comments UA Blood (test code = Negative (03/07/2013 N UA Blood) 15:55:00) [facility] CenterTfdlyvzSWROGZZDOG4111-75-58 21:55:00 Test Item Value Reference Range Interpretation Comments UA Ketones (test code Negative = UA Ketones) *NA*(03/07/2013 15:55:00) [facility]viewUjzqdvrMNCUBCCHOA8548-51-19 21:55:00 Test Item Value Reference Range Interpretation Comments UA Protein (test code = Trace A UA Protein) *ABN*(03/07/2013 15:55:00) [facility]viewSyorevxGZQZXOAWDJ5415-97-61 21:55:00 Test Item Value Reference Range Interpretation Comments UA Glucose (test code Negative (03/07/2013 N = UA Glucose) 15:55:00) [facility]viewJqxiqbzXEEKQLJRIQ8181-31-97 21:55:00 Test Item Value Reference Range Interpretation Comments UA pH (test code = UA pH) 7.5 1 5.0-8.0 N [facility]viewHdglrvlEXPTMQWLZF9256-04-85 21:55:00 Test Item Value Reference Range Interpretation Comments UA Nitrite (test code Negative (03/07/2013 N = UA Nitrite) 15:55:00) [facility]viewMkhdxmtEFSTKMIGFZ5090-09-65 21:55:00 Test Item Value Reference Range Interpretation Comments UA Urobilinogen (test code = UA 1.0 0.1-1.0 N Urobilinogen) [facility]viewPjfqoyoEDZBUCJBYT1964-36-68 21:55:00 Test Item Value Reference Range Interpretation Comments UA Leuk Est (test Negative (03/07/2013 N code = UA Leuk Est) 15:55:00) [facility]viewLlmlofcKZPXKPXTUF3565-03-14 21:55:00 Test Item Value Reference Range Interpretation Comments UA Spec Grav (test code = UA Spec 1.015 1 N Grav) [facility]viewGmyrpspWIICPUBTVD6490-86-70 21:55:00 Test Item Value Reference Range Interpretation Comments UA Color (test code = Yellow *NA*(03/07/2013 UA Color) 15:55:00) [facility]viewCvtoxxjSTEBWQKIXC6122-28-72 21:55:00 Test Item Value Reference Range Interpretation Comments UA Turbidity (test code = Clear (03/07/2013 N UA Turbidity) 15:55:00) [facility]viewHxffrzlHQFDBLGKHT1587-67-56 21:55:00 Test Item Value Reference Range Interpretation Comments UA Sq Epi (test code = UA Sq Epi) Few /LPF N [facility] LongviewZshlazqMQBVUXOAJY5140-87-27 21:55:00 Test Item Value Reference Range Interpretation Comments Micro? (test code = Performed (03/07/2013 N Micro?) 15:55:00) [facility]viewYchvqixUXHCRQPFSS9217-75-52 21:55:00 Test Item Value Reference Range Interpretation Comments UA Bacteria (test code = UA Occasional /HPF N Bacteria) [facility] CenterHksbymeEWJYJXHFN1183-54-99 21:55:00 Test Item Value Reference Range Interpretation Comments U Preg (test code = U Negative (03/07/2013 N Preg) 15:55:00) [facility] CenterWahfnemQFCQIMHPOZ7655-75-61 21:55:00 Test Item Value Reference Range Interpretation Comments UA Bili (test code = Negative *NA*(03/07/2013 UA Bili) 15:55:00) [facility]viewMlkqhmcIMFKYJPECL3123-92-34 21:55:00 Test Item Value Reference Range Interpretation Comments UA Blood (test code = Negative (03/07/2013 N UA Blood) 15:55:00) [facility] CenterOjvowjmGVKSZRAZTK5164-55-80 21:55:00 Test Item Value Reference Range Interpretation Comments UA Ketones (test code Negative = UA Ketones) *NA*(03/07/2013 15:55:00) [facility]viewExsbrrhTERDBUOFSM5236-89-34 21:55:00 Test Item Value Reference Range Interpretation Comments UA Protein (test code = Trace A UA Protein) *ABN*(03/07/2013 15:55:00) [facility]viewGfnvsrcCZXHOHKXFH1938-90-54 21:55:00 Test Item Value Reference Range Interpretation Comments UA Glucose (test code Negative (03/07/2013 N = UA Glucose) 15:55:00) [facility] CenterAldvgaoWALFUBNFVV3386-39-04 21:55:00 Test Item Value Reference Range Interpretation Comments UA pH (test code = UA pH) 7.5 1 5.0-8.0 N [facility] CenterDmfebraWMBRYDGNQG0023-98-53 21:55:00 Test Item Value Reference Range Interpretation Comments UA Nitrite (test code Negative (03/07/2013 N = UA Nitrite) 15:55:00) [facility] CenterXbxuuybZSICVDTIXW1305-54-79 21:55:00 Test Item Value Reference Range Interpretation Comments UA Urobilinogen (test code = UA 1.0 0.1-1.0 N Urobilinogen) [facility] CenterPszhosnTAFKXXRWWU9488-57-90 21:55:00 Test Item Value Reference Range Interpretation Comments UA Leuk Est (test Negative (03/07/2013 N code = UA Leuk Est) 15:55:00) [facility]viewUdsvkxeBSTBWEPNAT5330-45-43 21:55:00 Test Item Value Reference Range Interpretation Comments UA Spec Grav (test code = UA Spec 1.015 1 N Grav) [facility] CenterEmzupcnQAHOXYJTDF0891-75-92 21:55:00 Test Item Value Reference Range Interpretation Comments UA Color (test code = Yellow *NA*(03/07/2013 UA Color) 15:55:00) [facility] CenterRvszjjyBAYMJNMBFQ2723-96-59 21:55:00 Test Item Value Reference Range Interpretation Comments UA Turbidity (test code = Clear (03/07/2013 N UA Turbidity) 15:55:00) [facility] CenterIrnbaxmHZTIXIDSWW3011-38-00 21:55:00 Test Item Value Reference Range Interpretation Comments UA Sq Epi (test code = UA Sq Epi) Few /LPF N [facility] CenterLjeehrkSMEQSTJPMA4064-07-67 21:55:00 Test Item Value Reference Range Interpretation Comments Micro? (test code = Performed (03/07/2013 N Micro?) 15:55:00) [facility] CenterFivgumaUXFNJBQOWY7094-60-04 21:55:00 Test Item Value Reference Range Interpretation Comments UA Bacteria (test code = UA Occasional /HPF N Bacteria) [facility] CenterLhvwgonQSJOVEWBC6228-11-24 21:55:00 Test Item Value Reference Range Interpretation Comments U Preg (test code = U Negative (03/07/2013 N Preg) 15:55:00) [facility]viewXvgqrtqOLBAKJMLQB0727-89-38 21:55:00 Test Item Value Reference Range Interpretation Comments UA Bili (test code = Negative *NA*(03/07/2013 UA Bili) 15:55:00) [facility]viewLgwlzibZLIJOBWTAS8747-82-25 21:55:00 Test Item Value Reference Range Interpretation Comments UA Blood (test code = Negative (03/07/2013 N UA Blood) 15:55:00) [facility]viewOlubqteJIKEEBDQRI1719-44-05 21:55:00 Test Item Value Reference Range Interpretation Comments UA Ketones (test code Negative = UA Ketones) *NA*(03/07/2013 15:55:00) [facility] LongviewBnmngzoDRFYVAQCEX0439-83-66 21:55:00 Test Item Value Reference Range Interpretation Comments UA Protein (test code = Trace A UA Protein) *ABN*(03/07/2013 15:55:00) [facility] LongviewUqcxuvlFIWBVARTJW0850-61-26 21:55:00 Test Item Value Reference Range Interpretation Comments UA Glucose (test code Negative (03/07/2013 N = UA Glucose) 15:55:00) [facility]viewGpevrhvBXNIHOQWJK4032-23-04 21:55:00 Test Item Value Reference Range Interpretation Comments UA pH (test code = UA pH) 7.5 1 5.0-8.0 N [facility]viewMzbldsvUYROJRVWQQ4967-26-50 21:55:00 Test Item Value Reference Range Interpretation Comments UA Nitrite (test code Negative (03/07/2013 N = UA Nitrite) 15:55:00) [facility]viewYgygxweIVZCGFCWED9826-89-87 21:55:00 Test Item Value Reference Range Interpretation Comments UA Urobilinogen (test code = UA 1.0 0.1-1.0 N Urobilinogen) [facility]viewYrrxqycYAHLPPSJCX1260-65-76 21:55:00 Test Item Value Reference Range Interpretation Comments UA Leuk Est (test Negative (03/07/2013 N code = UA Leuk Est) 15:55:00) [facility]viewUtrwbwjGEOJOVQNPN3795-53-86 21:55:00 Test Item Value Reference Range Interpretation Comments UA Spec Grav (test code = UA Spec 1.015 1 N Grav) [facility] LongviewKvderkvRPAWCJSHCU5518-53-07 21:55:00 Test Item Value Reference Range Interpretation Comments UA Color (test code = Yellow *NA*(03/07/2013 UA Color) 15:55:00) [facility]viewSgvchebSVANMIJIOL0270-98-19 21:55:00 Test Item Value Reference Range Interpretation Comments UA Turbidity (test code = Clear (03/07/2013 N UA Turbidity) 15:55:00) [facility]viewEgoltkuYCBPLLTCXV4067-12-13 21:55:00 Test Item Value Reference Range Interpretation Comments UA Sq Epi (test code = UA Sq Epi) Few /LPF N [facility] LongviewBkkqtstDEHSWNWUTL0349-48-69 21:55:00 Test Item Value Reference Range Interpretation Comments Micro? (test code = Performed (03/07/2013 N Micro?) 15:55:00) [facility]viewNjvfivmQNRQEXUVLJ4903-07-06 21:55:00 Test Item Value Reference Range Interpretation Comments UA Bacteria (test code = UA Occasional /HPF N Bacteria) [facility]WfqjiciGKSUMRPLY2123-17-20 15:45:45 Test Item Value Reference Range Interpretation Comments CK-MB INDEX (test 0.2 See_Comment N [Automate d message] The code = CK-MB INDEX) system w [facility] generated this result transmit kuldip reference range : <=2.5. The reference range was not used to interpr et this result as abiodun l/abnormal. [facility] HospitalAntuofrYHVRBDVUP8217-94-62 15:45:45 Test Item Value Reference Range Interpretation Comments Lactic Acid Lvl (test code = Lactic 1.9 0.5-2.2 N Acid Lvl) [facility] HospitalHwnmtroOMCTCPSQN8365-48-33 15:45:45 Test Item Value Reference Range Interpretation Comments CK MB (test code = CK MB) 1.1 0.5-3.6 N [facility] HospitalIyxtnsdFARONXBXT8664-95-40 15:45:45 Test Item Value Reference Range Interpretation Comments Troponin-I (test code no gt See_Comment N [Auto mated message] The = Troponin-I) system which g enerated this result transmit kuldip reference range : <=0.40. The reference r nilam was not used to interpr et this result as abiodun l/abnormal. [facility] HospitalXmnbztkJLIKXJSBR0679-40-76 15:45:45 Test Item Value Reference Range Interpretation Comments eGFR (test code = eGFR) 82 [facility] [facility]P5697-92-88 15:45:45 Test Item Value Reference Range Interpretation Comments BUN (test code = BUN) 7 7-22 N [facility]HrskovbDBPGETALR4155-86-89 15:45:45 Test Item Value Reference Range Interpretation Comments Potassium Lvl (test code = Potassium 3.9 3.5-5.1 N Lvl) [facility] HospitalCyrkkncSLQVJYVGA7610-54-13 15:45:45 Test Item Value Reference Range Interpretation Comments Calcium Lvl (test code = Calcium Lvl) 9.6 8.5-10.5 N [facility] HospitalIozoanbHJAGHEUYI4319-73-49 15:45:45 Test Item Value Reference Range Interpretation Comments AGAP (test code = AGAP) 12.9 10.0-20.0 N [facility] HospitalYuiqfvgOGVFWBTFY6432-72-88 15:45:45 Test Item Value Reference Range Interpretation Comments Glucose Lvl (test code = Glucose Lvl) 131 70-99 H [facility] HospitalGpuprfyPXGFTMFZY9538-91-50 15:45:45 Test Item Value Reference Range Interpretation Comments Chloride Lvl (test code = Chloride Lvl) 102 95-109 N [facility] HospitalZmwilghBVVLIVEXB4801-74-64 15:45:45 Test Item Value Reference Range Interpretation Comments CO2 (test code = CO2) 24 24-32 N [facility] HospitalSmuwidkYGSTWYAJF6626-10-83 15:45:45 Test Item Value Reference Range Interpretation Comments Creatinine Lvl (test code = Creatinine 0.9 0.5-1.4 N Lvl) [facility] HospitalWeaibpuBQPAQGFLA9129-69-59 15:45:45 Test Item Value Reference Range Interpretation Comments Sodium Lvl (test code = Sodium Lvl) 135 135-145 N [facility] HospitalLxgdnaeEOFGJWKZA9004-72-48 15:45:45 Test Item Value Reference Range Interpretation Comments Total CK (test code = Total CK) 469 12-191 H [facility] HospitalSrzfjhsFJJHSZSVT4447-95-49 15:45:45 Test Item Value Reference Range Interpretation Comments CK-MB INDEX (test 0.2 See_Comment N [Automate d message] The code = CK-MB INDEX) system w [facility] generated this result transmit kuldip reference range : <=2.5. The reference range was not used to interpr et this result as abiodun l/abnormal. [facility] HospitalTkvktonPFXMKFPSH8743-30-31 15:45:45 Test Item Value Reference Range Interpretation Comments Lactic Acid Lvl (test code = Lactic 1.9 0.5-2.2 N Acid Lvl) [facility] HospitalJwandtsUPFRHMWMQ0420-88-37 15:45:45 Test Item Value Reference Range Interpretation Comments CK MB (test code = CK MB) 1.1 0.5-3.6 N [facility] HospitalFwhvkbiNVWFJAWYQ5463-93-67 15:45:45 Test Item Value Reference Range Interpretation Comments Troponin-I (test code no gt See_Comment N [Auto mated message] The = Troponin-I) system which g enerated this result transmit kuldip reference range : <=0.40. The reference r nilam was not used to interpr et this result as abiodun l/abnormal. [facility] HospitalJgjqwhqSQXOKWDXO9541-42-78 15:45:45 Test Item Value Reference Range Interpretation Comments eGFR (test code = eGFR) 82 [facility] HospitalOvxldlzTDTEXFLTA4567-16-12 15:45:45 Test Item Value Reference Range Interpretation Comments BUN (test code = BUN) 7 7-22 N [facility] HospitalYfwmtdsVQSJRVLRY8665-43-78 15:45:45 Test Item Value Reference Range Interpretation Comments Potassium Lvl (test code = Potassium 3.9 3.5-5.1 N Lvl) [facility] HospitalJszzjzlSYDZYKYRX9692-33-91 15:45:45 Test Item Value Reference Range Interpretation Comments Calcium Lvl (test code = Calcium Lvl) 9.6 8.5-10.5 N [facility] HospitalTanthufPBRTKKOIN7133-99-13 15:45:45 Test Item Value Reference Range Interpretation Comments AGAP (test code = AGAP) 12.9 10.0-20.0 N [facility] HospitalIqmvtclTYMROHHUW6610-92-89 15:45:45 Test Item Value Reference Range Interpretation Comments Glucose Lvl (test code = Glucose Lvl) 131 70-99 H [facility] HospitalAbenjssUDVHCUYJN9383-25-80 15:45:45 Test Item Value Reference Range Interpretation Comments Chloride Lvl (test code = Chloride Lvl) 102 95-109 N [facility] HospitalDfoihsnFPKVESQCR0301-69-52 15:45:45 Test Item Value Reference Range Interpretation Comments CO2 (test code = CO2) 24 24-32 N [facility] HospitalHlrxgriXUVUGBRST5667-17-23 15:45:45 Test Item Value Reference Range Interpretation Comments Creatinine Lvl (test code = Creatinine 0.9 0.5-1.4 N Lvl) [facility] HospitalQqleslnLMUVSMRGY4235-53-83 15:45:45 Test Item Value Reference Range Interpretation Comments Sodium Lvl (test code = Sodium Lvl) 135 135-145 N [facility] HospitalZaxxlwaKOVUJJVHP2933-15-57 15:45:45 Test Item Value Reference Range Interpretation Comments Total CK (test code = Total CK) 469 12-191 H [facility] HospitalXtnnjeoHVOTQVARU8841-22-51 15:45:45 Test Item Value Reference Range Interpretation Comments CK-MB INDEX (test 0.2 See_Comment N [Automate d message] The code = CK-MB INDEX) system w [facility] generated this result transmit kuldip reference range : <=2.5. The reference range was not used to interpr et this result as abiodun l/abnormal. [facility] HospitalEfyhadeUAFNTEOGM8020-10-24 15:45:45 Test Item Value Reference Range Interpretation Comments Lactic Acid Lvl (test code = Lactic 1.9 0.5-2.2 N Acid Lvl) [facility] HospitalQfwelwcUKCYWFPGV7418-76-67 15:45:45 Test Item Value Reference Range Interpretation Comments CK MB (test code = CK MB) 1.1 0.5-3.6 N [facility] HospitalVwasbkoVFGHDVZFO2380-09-43 15:45:45 Test Item Value Reference Range Interpretation Comments Troponin-I (test code no gt See_Comment N [Auto mated message] The = Troponin-I) system which g enerated this result transmit kuldip reference range : <=0.40. The reference r nilam was not used to interpr et this result as abiodun l/abnormal. [facility] HospitalGphbidwSIVGLGLNA9942-39-45 15:45:45 Test Item Value Reference Range Interpretation Comments eGFR (test code = eGFR) 82 [facility] HospitalFjuucuyDOQYXSIRY4442-79-82 15:45:45 Test Item Value Reference Range Interpretation Comments BUN (test code = BUN) 7 7-22 N [facility] HospitalPznhjneNHMFUOGTK2561-64-71 15:45:45 Test Item Value Reference Range Interpretation Comments Potassium Lvl (test code = Potassium 3.9 3.5-5.1 N Lvl) [facility] HospitalOmxtbpyKOIMQBVGL8539-37-95 15:45:45 Test Item Value Reference Range Interpretation Comments Calcium Lvl (test code = Calcium Lvl) 9.6 8.5-10.5 N [facility] HospitalRngizziAQNVRHVNW8384-87-33 15:45:45 Test Item Value Reference Range Interpretation Comments AGAP (test code = AGAP) 12.9 10.0-20.0 N [facility] HospitalChfkruxVVQBWACSM8336-41-22 15:45:45 Test Item Value Reference Range Interpretation Comments Glucose Lvl (test code = Glucose Lvl) 131 70-99 H [facility] HospitalEwiphftAAVBQCPGX8687-55-15 15:45:45 Test Item Value Reference Range Interpretation Comments Chloride Lvl (test code = Chloride Lvl) 102 95-109 N [facility] HospitalXsetuohMTCTVUEGK7418-92-23 15:45:45 Test Item Value Reference Range Interpretation Comments CO2 (test code = CO2) 24 24-32 N [facility] HospitalHdbljceERLFOYXKS0302-84-08 15:45:45 Test Item Value Reference Range Interpretation Comments Creatinine Lvl (test code = Creatinine 0.9 0.5-1.4 N Lvl) [facility] HospitalBcpjymoRHBYXOYQN8510-42-76 15:45:45 Test Item Value Reference Range Interpretation Comments Sodium Lvl (test code = Sodium Lvl) 135 135-145 N [facility] HospitalVqfpwbkQYEGFPGLY3353-81-85 15:45:45 Test Item Value Reference Range Interpretation Comments Total CK (test code = Total CK) 469 12-191 H [facility] HospitalTqzxvlzRLFNKWFJI2755-13-66 15:45:45 Test Item Value Reference Range Interpretation Comments CK-MB INDEX (test 0.2 See_Comment N [Automate d message] The code = CK-MB INDEX) system w [facility] generated this result transmit kuldip reference range : <=2.5. The reference range was not used to interpr et this result as abiodun l/abnormal. [facility] HospitalDfvmvqxLDBNBGSXI9063-22-34 15:45:45 Test Item Value Reference Range Interpretation Comments Lactic Acid Lvl (test code = Lactic 1.9 0.5-2.2 N Acid Lvl) [facility] HospitalVkmqpbvCPJCYMCIS5977-71-77 15:45:45 Test Item Value Reference Range Interpretation Comments CK MB (test code = CK MB) 1.1 0.5-3.6 N [facility] HospitalOhccxqyMRPZGDGUG0692-07-69 15:45:45 Test Item Value Reference Range Interpretation Comments Troponin-I (test code no gt See_Comment N [Auto mated message] The = Troponin-I) system which g enerated this result transmit kuldip reference range : <=0.40. The reference r nilam was not used to interpr et this result as abiodun l/abnormal. [facility] HospitalVgftjggHSNSFCDOE1513-70-07 15:45:45 Test Item Value Reference Range Interpretation Comments eGFR (test code = eGFR) 82 [facility] HospitalTvxwmpjCHZMJFRKI0719-57-86 15:45:45 Test Item Value Reference Range Interpretation Comments BUN (test code = BUN) 7 7-22 N [facility] HospitalGmgmnyqYYIPVZJNZ9802-99-24 15:45:45 Test Item Value Reference Range Interpretation Comments Potassium Lvl (test code = Potassium 3.9 3.5-5.1 N Lvl) [facility] HospitalVwcriibULPTOXIXV2169-21-88 15:45:45 Test Item Value Reference Range Interpretation Comments Calcium Lvl (test code = Calcium Lvl) 9.6 8.5-10.5 N [facility] HospitalOcdprhiBGHWVCRNQ7487-48-38 15:45:45 Test Item Value Reference Range Interpretation Comments AGAP (test code = AGAP) 12.9 10.0-20.0 N [facility] HospitalQobefylAFJZJSZUJ4591-60-50 15:45:45 Test Item Value Reference Range Interpretation Comments Glucose Lvl (test code = Glucose Lvl) 131 70-99 H [facility]YrmfqbrFAOCJGBYY1192-35-87 15:45:45 Test Item Value Reference Range Interpretation Comments Chloride Lvl (test code = Chloride Lvl) 102 95-109 N [facility] HospitalLxrnhmlTEMRWHYBN0499-28-43 15:45:45 Test Item Value Reference Range Interpretation Comments CO2 (test code = CO2) 24 24-32 N [facility] HospitalJrpbjveXNOPVQGDS0194-75-89 15:45:45 Test Item Value Reference Range Interpretation Comments Creatinine Lvl (test code = Creatinine 0.9 0.5-1.4 N Lvl) [facility] HospitalBuoorocKXSMDBDCN8489-27-36 15:45:45 Test Item Value Reference Range Interpretation Comments Sodium Lvl (test code = Sodium Lvl) 135 135-145 N [facility] HospitalAxdkqkxOKAUEOAZN8789-23-09 15:45:45 Test Item Value Reference Range Interpretation Comments Total CK (test code = Total CK) 469 12-191 H [facility]IR[facility] - UXKHXCNX4273-03-52 15:45:37 Test Item Value Reference Range Interpretation Comments Influ A (test code = Negative (03/07/2013 N Influ A) 09:45:37) [facility] - BAWTKXOH5813-69-57 15:45:37 Test Item Value Reference Range Interpretation Comments Influ B (test code = Negative 1(03/07/2013 N Influ B) 09:45:37) [facility] VXZBWNFN3450-73-60 15:45:37 Test Item Value Reference Range Interpretation Comments Influ A (test code = Negative (03/07/2013 N Influ A) 09:45:37) [facility] UWRLTTDF3152-77-07 15:45:37 Test Item Value Reference Range Interpretation Comments Influ B (test code = Negative 1(03/07/2013 N Influ B) 09:45:37) [facility]2013-12-13 15:45:37 Test Item Value Reference Range Interpretation Comments Influ A (test code = Negative (03/07/2013 N Influ A) 09:45:37) [facility]2013-12-13 15:45:37 Test Item Value Reference Range Interpretation Comments Influ B (test code = Negative 1(03/07/2013 N Influ B) 09:45:37) [facility]2013-12-13 15:45:37 Test Item Value Reference Range Interpretation Comments Influ A (test code = Negative (03/07/2013 N Influ A) 09:45:37) [facility]2013-12-13 15:45:37 Test Item Value Reference Range Interpretation Comments Influ B (test code = Negative 1(03/07/2013 N Influ B) 09:45:37) [facility]YuypebqCPCVNKRLZR4916-61-70 15:45:00 Test Item Value Reference Range Interpretation Comments Eosinophils (test code = 0.1 See_Comment N [A utomated message] The Eosinophils) system which ge nerated this result tra nsmitted reference range : <=4.0. The reference r nilam was not used to int erpret this result as normal/abnormal . [facility] SystemQkzthvbGGCFBRGBSA1157-25-35 15:45:00 Test Item Value Reference Range Interpretation Comments Basophils (test code = 0.0 See_Comment N [Aut omated message] The Basophils) system which ge nerated this result tra nsmitted reference range : <=1.0. The reference r nilam was not used to int erpret this result as normal/abnormal . [facility] SystemHqvfewfZDWIIHOYPL3537-18-08 15:45:00 Test Item Value Reference Range Interpretation Comments Target Cell (test code Slight A = Target Cell) *ABN*(03/07/2013 09:45:00) [facility] SystemVwfseffPPHMUNYKRQ9469-91-90 15:45:00 Test Item Value Reference Range Interpretation Comments Elliptocyte (test code = Slight A Elliptocyte) *ABN*(03/07/2013 09:45:00) [facility] SystemGanjnfsNSAQKPTKGL5009-88-26 15:45:00 Test Item Value Reference Range Interpretation Comments Plt Morph (test code = Normal (03/07/2013 N Plt Morph) 09:45:00) [facility] SystemIniurgsPXYMAJZXVT7679-37-27 15:45:00 Test Item Value Reference Range Interpretation Comments Basophils # (test code 0.0 See_Comment N [Aut omated message] The = Basophils #) system which generated this result tra nsmitted reference range : <=0.2. The reference r nilam was not used to int erpret this result as normal/abnormal . [facility] SystemJcfivuxWFFJEAMIDC4410-39-68 15:45:00 Test Item Value Reference Range Interpretation Comments Microcyte (test code = 1+ *ABN*(03/07/2013 A Microcyte) 09:45:00) [facility] SystemIcputbbTFHJOWJMRB0498-76-55 15:45:00 Test Item Value Reference Range Interpretation Comments Lymphocytes # (test code = Lymphocytes 0.2 1.0-5.5 L #) [facility] SystemJsqcgylEGODRYZFKI4289-60-41 15:45:00 Test Item Value Reference Range Interpretation Comments Eosinophils # (test code 0.0 See_Comment N [A utomated message] The = Eosinophils #) system whic h generated this result tra nsmitted reference range : <=0.5. The reference r nilam was not used to int erpret this result as normal/abnormal . [facility] SystemSkauryoTHDPCONEFN0123-48-03 15:45:00 Test Item Value Reference Range Interpretation Comments Monocytes # (test code 0.4 See_Comment N [Aut omated message] The = Monocytes #) system which generated this result tra nsmitted reference range : <=0.8. The reference r nilam was not used to int erpret this result as normal/abnormal . [facility] SystemRiahpnbGPSLUQRNQH2099-65-40 15:45:00 Test Item Value Reference Range Interpretation Comments Segs-Bands # (test code = Segs-Bands #) 6.7 1.5-8.1 N [facility] SystemIjnftzaTEPDDPOMLY1034-34-30 15:45:00 Test Item Value Reference Range Interpretation Comments Segs (test code = Segs) 91.4 45.0-75.0 H [facility] SystemLkaqtlzRXQSUXJQON4916-86-99 15:45:00 Test Item Value Reference Range Interpretation Comments Lymphocytes (test code = Lymphocytes) 3.3 20.0-40.0 L [facility] SystemLwlbfwzBCZTTQUCLV4765-74-65 15:45:00 Test Item Value Reference Range Interpretation Comments Monocytes (test code = Monocytes) 5.2 2.0-12.0 N [facility] SystemJfstkztRUUGRVIYWM8166-94-17 15:45:00 Test Item Value Reference Range Interpretation Comments Polychrom (test code = Slight (03/07/2013 N Polychrom) 09:45:00) [facility] SystemPogckytIZIZMHNCKQ1656-04-20 15:45:00 Test Item Value Reference Range Interpretation Comments Hypochrom (test code = Slight (03/07/2013 N Hypochrom) 09:45:00) [facility] SystemKxfdfnuMMZGQHBGMD1443-17-65 15:45:00 Test Item Value Reference Range Interpretation Comments RBC X 10x6 (test code = RBC X 10x6) 3.99 4.20-5.40 L [facility] SystemZaiienuDISACPUYGL0586-03-26 15:45:00 Test Item Value Reference Range Interpretation Comments Hgb (test code = Hgb) 8.3 12.0-16.0 L [facility] SystemFrocdctYBERAJQXCM4325-25-38 15:45:00 Test Item Value Reference Range Interpretation Comments WBC X 10x3 (test code = WBC X 10x3) 7.3 3.7-10.4 N [facility] SystemAqkoylpSGJAOEXHKR1133-40-63 15:45:00 Test Item Value Reference Range Interpretation Comments Platelet (test code = Platelet) 305 133-450 N [facility] SystemRygloeiICCBZSZGDM6869-06-91 15:45:00 Test Item Value Reference Range Interpretation Comments RDW (test code = RDW) 17.9 11.5-14.5 H [facility] SystemWkjombuBQKFJSWAGC8412-37-13 15:45:00 Test Item Value Reference Range Interpretation Comments Hct (test code = Hct) 26.1 36.0-48.0 L [facility] SystemKkdbhirZGJBDAZVCE3617-36-48 15:45:00 Test Item Value Reference Range Interpretation Comments MCH (test code = MCH) 20.7 pg 27.0-31.0 L [facility] SystemGwkzhsgXNOXJMJIMG4677-03-26 15:45:00 Test Item Value Reference Range Interpretation Comments MCV (test code = MCV) 65.4 81.0-99.0 L [facility] SystemHgemfzbNTJHJUPUCD2465-37-96 15:45:00 Test Item Value Reference Range Interpretation Comments MCHC (test code = MCHC) 31.7 32.0-36.0 L [facility] SystemCusyxziFJJXNXCCIZ1766-37-93 15:45:00 Test Item Value Reference Range Interpretation Comments MPV (test code = MPV) 8.0 7.4-10.4 N [facility] SystemOpksbajBUHNROYBCL7683-96-63 15:45:00 Test Item Value Reference Range Interpretation Comments Eosinophils (test code = 0.1 See_Comment N [A utomated message] The Eosinophils) system which ge nerated this result tra nsmitted reference range : <=4.0. The reference r nilam was not used to int erpret this result as normal/abnormal . [facility] SystemCgumddiLJYFTHGKEQ5075-42-61 15:45:00 Test Item Value Reference Range Interpretation Comments Basophils (test code = 0.0 See_Comment N [Aut omated message] The Basophils) system which ge nerated this result tra nsmitted reference range : <=1.0. The reference r nilam was not used to int erpret this result as normal/abnormal . [facility] SystemOkyaskfCAVCULHPOX8010-83-89 15:45:00 Test Item Value Reference Range Interpretation Comments Target Cell (test code Slight A = Target Cell) *ABN*(03/07/2013 09:45:00) [facility] SystemZwadledZLPDMIONVX3800-69-11 15:45:00 Test Item Value Reference Range Interpretation Comments Elliptocyte (test code = Slight A Elliptocyte) *ABN*(03/07/2013 09:45:00) [facility] SystemKlgqniaLHOZXGZHLC4313-30-19 15:45:00 Test Item Value Reference Range Interpretation Comments Plt Morph (test code = Normal (03/07/2013 N Plt Morph) 09:45:00) [facility] SystemQicqnhjEFIMPOZZEX7836-35-15 15:45:00 Test Item Value Reference Range Interpretation Comments Basophils # (test code 0.0 See_Comment N [Aut omated message] The = Basophils #) system which generated this result tra nsmitted reference range : <=0.2. The reference r nilam was not used to int erpret this result as normal/abnormal . [facility] SystemUxjjtcaYUHFVQOOIF6177-02-28 15:45:00 Test Item Value Reference Range Interpretation Comments Microcyte (test code = 1+ *ABN*(03/07/2013 A Microcyte) 09:45:00) [facility] SystemCedyivuOIJHXSSVGM2985-96-91 15:45:00 Test Item Value Reference Range Interpretation Comments Lymphocytes # (test code = Lymphocytes 0.2 1.0-5.5 L #) [facility] SystemXzszyagKXWOFBRVIP7471-71-06 15:45:00 Test Item Value Reference Range Interpretation Comments Eosinophils # (test code 0.0 See_Comment N [A utomated message] The = Eosinophils #) system whic h generated this result tra nsmitted reference range : <=0.5. The reference r nilam was not used to int erpret this result as normal/abnormal . [facility] SystemEozvbatJBUEOIPLXT7209-36-69 15:45:00 Test Item Value Reference Range Interpretation Comments Monocytes # (test code 0.4 See_Comment N [Aut omated message] The = Monocytes #) system which generated this result tra nsmitted reference range : <=0.8. The reference r nilam was not used to int erpret this result as normal/abnormal . [facility] SystemXtatqmrLKUZBZXUOE5974-54-66 15:45:00 Test Item Value Reference Range Interpretation Comments Segs-Bands # (test code = Segs-Bands #) 6.7 1.5-8.1 N [facility] SystemShtmidaMSGFLIQZCV0821-87-85 15:45:00 Test Item Value Reference Range Interpretation Comments Segs (test code = Segs) 91.4 45.0-75.0 H [facility] SystemEzbdgzzAFOODXHUDT2135-33-24 15:45:00 Test Item Value Reference Range Interpretation Comments Lymphocytes (test code = Lymphocytes) 3.3 20.0-40.0 L [facility] SystemZnnuetnPVRHQINECX2828-60-51 15:45:00 Test Item Value Reference Range Interpretation Comments Monocytes (test code = Monocytes) 5.2 2.0-12.0 N [facility] SystemVwcnvkqXMRPYZJFJX7609-92-41 15:45:00 Test Item Value Reference Range Interpretation Comments Polychrom (test code = Slight (03/07/2013 N Polychrom) 09:45:00) [facility] SystemWowgzjvEYBJKZHZWC0801-28-11 15:45:00 Test Item Value Reference Range Interpretation Comments Hypochrom (test code = Slight (03/07/2013 N Hypochrom) 09:45:00) [facility] SystemUfqmmoyNQVTBGKRMT1599-69-19 15:45:00 Test Item Value Reference Range Interpretation Comments RBC X 10x6 (test code = RBC X 10x6) 3.99 4.20-5.40 L [facility] SystemHlbisaxFXWXCKWOGS7033-13-19 15:45:00 Test Item Value Reference Range Interpretation Comments Hgb (test code = Hgb) 8.3 12.0-16.0 L [facility] SystemBuydpjqHHSXNDGJIM8418-07-47 15:45:00 Test Item Value Reference Range Interpretation Comments WBC X 10x3 (test code = WBC X 10x3) 7.3 3.7-10.4 N [facility] SystemLjnwtjdTFUUVLDJSG9148-93-04 15:45:00 Test Item Value Reference Range Interpretation Comments Platelet (test code = Platelet) 305 133-450 N [facility] SystemKcsxbloDLQNUHKYBB8022-81-03 15:45:00 Test Item Value Reference Range Interpretation Comments RDW (test code = RDW) 17.9 11.5-14.5 H [facility] SystemFwaaqhaIBMPGIZPMV2842-29-59 15:45:00 Test Item Value Reference Range Interpretation Comments Hct (test code = Hct) 26.1 36.0-48.0 L [facility] SystemXulbekkLQMWZXBCPR6359-40-82 15:45:00 Test Item Value Reference Range Interpretation Comments MCH (test code = MCH) 20.7 pg 27.0-31.0 L [facility] SystemQeanyokHRNWKPDIDD3792-45-59 15:45:00 Test Item Value Reference Range Interpretation Comments MCV (test code = MCV) 65.4 81.0-99.0 L [facility] SystemZqhztflUWDNNDZNYD7504-88-80 15:45:00 Test Item Value Reference Range Interpretation Comments MCHC (test code = MCHC) 31.7 32.0-36.0 L [facility] SystemYlalilgSLJXKXYWLA6837-70-87 15:45:00 Test Item Value Reference Range Interpretation Comments MPV (test code = MPV) 8.0 7.4-10.4 N [facility] SystemFyibprdSUZYSNFCRB4148-94-19 15:45:00 Test Item Value Reference Range Interpretation Comments Eosinophils (test code = 0.1 See_Comment N [A utomated message] The Eosinophils) system which ge nerated this result tra nsmitted reference range : <=4.0. The reference r nilam was not used to int erpret this result as normal/abnormal . [facility] SystemRubtaroGRDRCUIWVJ3926-96-07 15:45:00 Test Item Value Reference Range Interpretation Comments Basophils (test code = 0.0 See_Comment N [Aut omated message] The Basophils) system which ge nerated this result tra nsmitted reference range : <=1.0. The reference r nilam was not used to int erpret this result as normal/abnormal . [facility] SystemLtzmaleUBJXAHALSL1352-58-86 15:45:00 Test Item Value Reference Range Interpretation Comments Target Cell (test code Slight A = Target Cell) *ABN*(03/07/2013 09:45:00) [facility] SystemEdvpxqkPVQXYYDGND3094-48-76 15:45:00 Test Item Value Reference Range Interpretation Comments Elliptocyte (test code = Slight A Elliptocyte) *ABN*(03/07/2013 09:45:00) [facility] SystemIdldhcdKTIASXBFLY8557-85-36 15:45:00 Test Item Value Reference Range Interpretation Comments Plt Morph (test code = Normal (03/07/2013 N Plt Morph) 09:45:00) [facility] SystemNgxrkjoRVOLPJTMNV4648-93-44 15:45:00 Test Item Value Reference Range Interpretation Comments Basophils # (test code 0.0 See_Comment N [Aut omated message] The = Basophils #) system which generated this result tra nsmitted reference range : <=0.2. The reference r nilam was not used to int erpret this result as normal/abnormal . [facility] SystemBnqihihMGXXDVBIDX2743-56-40 15:45:00 Test Item Value Reference Range Interpretation Comments Microcyte (test code = 1+ *ABN*(03/07/2013 A [employer]) 09:45:00) [facility] SystemKtowpgsXSSUCUIFSV4681-08-32 15:45:00 Test Item Value Reference Range Interpretation Comments Lymphocytes # (test code = Lymphocytes 0.2 1.0-5.5 L #) [facility] SystemShtbbygHSZLWOFNUS3064-17-70 15:45:00 Test Item Value Reference Range Interpretation Comments Eosinophils # (test code 0.0 See_Comment N [A utomated message] The = Eosinophils #) system whic h generated this result tra nsmitted reference range : <=0.5. The reference r nilam was not used to int erpret this result as normal/abnormal . [facility] SystemIbhzpfdRUHNUGZLAE1508-63-38 15:45:00 Test Item Value Reference Range Interpretation Comments Monocytes # (test code 0.4 See_Comment N [Aut omated message] The = Monocytes #) system which generated this result tra nsmitted reference range : <=0.8. The reference r nilam was not used to int erpret this result as normal/abnormal . [facility] SystemFimqdyxIBTHDBOUEY5721-75-83 15:45:00 Test Item Value Reference Range Interpretation Comments Segs-Bands # (test code = Segs-Bands #) 6.7 1.5-8.1 N [facility] SystemCcgpeanHAIAHIVQMU7040-12-91 15:45:00 Test Item Value Reference Range Interpretation Comments Segs (test code = Segs) 91.4 45.0-75.0 H [facility] SystemZiddkpbKPXBMNONOQ0567-91-34 15:45:00 Test Item Value Reference Range Interpretation Comments Lymphocytes (test code = Lymphocytes) 3.3 20.0-40.0 L [facility] SystemFhghglxDMWLNRROXD9436-71-14 15:45:00 Test Item Value Reference Range Interpretation Comments Monocytes (test code = Monocytes) 5.2 2.0-12.0 N [facility] SystemYsdszocNIJAABWBIU0330-57-14 15:45:00 Test Item Value Reference Range Interpretation Comments Polychrom (test code = Slight (03/07/2013 N Polychrom) 09:45:00) [facility] SystemPrnuoufSNZCNQTRYD7612-88-86 15:45:00 Test Item Value Reference Range Interpretation Comments Hypochrom (test code = Slight (03/07/2013 N Hypochrom) 09:45:00) [facility] SystemFqsfpvfIOZNUREPJN1331-32-84 15:45:00 Test Item Value Reference Range Interpretation Comments RBC X 10x6 (test code = RBC X 10x6) 3.99 4.20-5.40 L [facility] SystemVvbdiaaJOBORKDMJF0239-36-29 15:45:00 Test Item Value Reference Range Interpretation Comments Hgb (test code = Hgb) 8.3 12.0-16.0 L [facility] SystemQfzjhbuPZPHOBRMOW5399-57-60 15:45:00 Test Item Value Reference Range Interpretation Comments WBC X 10x3 (test code = WBC X 10x3) 7.3 3.7-10.4 N [place] [id number] 15:45:00 Test Item Value Reference Range Interpretation Comments Platelet (test code = Platelet) 305 133-450 N [facility] SystemSiemwpcPSBIUWJVUS6057-01-71 15:45:00 Test Item Value Reference Range Interpretation Comments RDW (test code = RDW) 17.9 11.5-14.5 H [facility] SystemQugdserNSKCAWEAMK7868-61-20 15:45:00 Test Item Value Reference Range Interpretation Comments Hct (test code = Hct) 26.1 36.0-48.0 L [facility] SystemOxxlqkuCYMUBQVHVC4765-43-60 15:45:00 Test Item Value Reference Range Interpretation Comments MCH (test code = MCH) 20.7 pg 27.0-31.0 L [facility] SystemVkroyyaAQXEVRZSLD4236-93-70 15:45:00 Test Item Value Reference Range Interpretation Comments MCV (test code = MCV) 65.4 81.0-99.0 L [facility] SystemCwgwrpqAOULMXAUUA7897-51-53 15:45:00 Test Item Value Reference Range Interpretation Comments MCHC (test code = MCHC) 31.7 32.0-36.0 L [facility] SystemMdgeomkNHLIDPFNXL0494-89-23 15:45:00 Test Item Value Reference Range Interpretation Comments MPV (test code = MPV) 8.0 7.4-10.4 N [facility] SystemAewcnafJGIWSOWWEJ1151-14-16 15:45:00 Test Item Value Reference Range Interpretation Comments Eosinophils (test code = 0.1 See_Comment N [A utomated message] The Eosinophils) system which ge nerated this result tra nsmitted reference range : <=4.0. The reference r nilam was not used to int erpret this result as normal/abnormal . [facility] SystemDzqxhfpXJYFQAJBDU0511-86-22 15:45:00 Test Item Value Reference Range Interpretation Comments Basophils (test code = 0.0 See_Comment N [Aut omated message] The Basophils) system which ge nerated this result tra nsmitted reference range : <=1.0. The reference r nilam was not used to int erpret this result as normal/abnormal . [facility] SystemNosiqsmCZOPWBDPNB7099-66-61 15:45:00 Test Item Value Reference Range Interpretation Comments Target Cell (test code Slight A = Target Cell) *ABN*(03/07/2013 09:45:00) [facility] SystemTpocmwnDBERKFLLYW0323-42-12 15:45:00 Test Item Value Reference Range Interpretation Comments Elliptocyte (test code = Slight A Elliptocyte) *ABN*(03/07/2013 09:45:00) [facility] SystemBdakskuQSZLWKAWYS8136-82-77 15:45:00 Test Item Value Reference Range Interpretation Comments Plt Morph (test code = Normal (03/07/2013 N Plt Morph) 09:45:00) [facility] SystemNjuwxuaWIIFQWDMQO1871-17-84 15:45:00 Test Item Value Reference Range Interpretation Comments Basophils # (test code 0.0 See_Comment N [Aut omated message] The = Basophils #) system which generated this result tra nsmitted reference range : <=0.2. The reference r nilam was not used to int erpret this result as normal/abnormal . [facility] SystemGitabruSCSVIWIWVR1626-61-00 15:45:00 Test Item Value Reference Range Interpretation Comments Microcyte (test code = 1+ *ABN*(03/07/2013 A Microcyte) 09:45:00) [facility] SystemVstjuskXJHMDUGRNJ0270-06-00 15:45:00 Test Item Value Reference Range Interpretation Comments Lymphocytes # (test code = Lymphocytes 0.2 1.0-5.5 L #) [facility] SystemFjnzxkxJDOAUZRBQZ6859-43-17 15:45:00 Test Item Value Reference Range Interpretation Comments Eosinophils # (test code 0.0 See_Comment N [A utomated message] The = Eosinophils #) system whic h generated this result tra nsmitted reference range : <=0.5. The reference r nilam was not used to int erpret this result as normal/abnormal . [facility] SystemStbsvmjSDIBLGFNQE7584-55-30 15:45:00 Test Item Value Reference Range Interpretation Comments Monocytes # (test code 0.4 See_Comment N [Aut omated message] The = Monocytes #) system which generated this result tra nsmitted reference range : <=0.8. The reference r nilam was not used to int erpret this result as normal/abnormal . [facility] SystemPjtxrsiNGEFTWTREL8981-70-29 15:45:00 Test Item Value Reference Range Interpretation Comments Segs-Bands # (test code = Segs-Bands #) 6.7 1.5-8.1 N [facility] SystemHgwvwihVYDJEJILLL6402-21-82 15:45:00 Test Item Value Reference Range Interpretation Comments Segs (test code = Segs) 91.4 45.0-75.0 H [facility] SystemYzstuzuJZZTXSAULU1765-08-42 15:45:00 Test Item Value Reference Range Interpretation Comments Lymphocytes (test code = Lymphocytes) 3.3 20.0-40.0 L [facility] SystemHdvjjusPGERGDFFPP4868-29-89 15:45:00 Test Item Value Reference Range Interpretation Comments Monocytes (test code = Monocytes) 5.2 2.0-12.0 N [facility] SystemBjeekosXWCLXMRCJY8011-87-85 15:45:00 Test Item Value Reference Range Interpretation Comments Polychrom (test code = Slight (03/07/2013 N Polychrom) 09:45:00) [facility] SystemXudsdwvWZMRMAVIIV2146-22-95 15:45:00 Test Item Value Reference Range Interpretation Comments Hypochrom (test code = Slight (03/07/2013 N Hypochrom) 09:45:00) [facility] SystemVjfuuenXFEFNDFUGN6745-71-72 15:45:00 Test Item Value Reference Range Interpretation Comments RBC X 10x6 (test code = RBC X 10x6) 3.99 4.20-5.40 L [facility] SystemYbhxukwKIXWGSHFRE6703-96-28 15:45:00 Test Item Value Reference Range Interpretation Comments Hgb (test code = Hgb) 8.3 12.0-16.0 L [facility] SystemXcgwxfnRAVGEQYFRR1980-05-76 15:45:00 Test Item Value Reference Range Interpretation Comments WBC X 10x3 (test code = WBC X 10x3) 7.3 3.7-10.4 N [facility] SystemDuddnevETZZSTZPUW1919-10-85 15:45:00 Test Item Value Reference Range Interpretation Comments Platelet (test code = Platelet) 305 133-450 N [facility] SystemOkuokjpPUVKKDMLLO7627-30-05 15:45:00 Test Item Value Reference Range Interpretation Comments RDW (test code = RDW) 17.9 11.5-14.5 H [facility] SystemPsylfjtONSJTEKUYD8672-83-12 15:45:00 Test Item Value Reference Range Interpretation Comments Hct (test code = Hct) 26.1 36.0-48.0 L [facility] SystemAmlslsjCPMCLWSJPW2075-15-70 15:45:00 Test Item Value Reference Range Interpretation Comments MCH (test code = MCH) 20.7 pg 27.0-31.0 L [facility] SystemEihujunRIMFRKBGTF9945-99-26 15:45:00 Test Item Value Reference Range Interpretation Comments MCV (test code = MCV) 65.4 81.0-99.0 L [facility] SystemLcovgaaLKQYDWZLPZ4311-43-25 15:45:00 Test Item Value Reference Range Interpretation Comments MCHC (test code = MCHC) 31.7 32.0-36.0 L [facility] SystemDyvxpjgFXHFPWIGHO8890-05-23 15:45:00 Test Item Value Reference Range Interpretation Comments MPV (test code = MPV) 8.0 7.4-10.4 N [facility]
[2022-02-05 13:50] LABS: SARS-COV-2 RT PCR NEGATIVE (NEGATIVE)
--- NOTE | 2022-02-05 14:04 | ER ---
Nurse's Notes [facility] Name: Roxana Sanchez Age: 46 yrs Sex: Female : 1975 Arrival Date: 02/05/2022 Time: 12:25 Bed IW1 Private MD: Diagnosis: Presentation: 02/05 12:46 Chief complaint: Patient states: generalize weakness and body aches since Sunday. vg1 8; saw PCP on Sunday and was tested for Covid Flu and strep and results were negative. Denies NVD. Coronavirus screen: Vaccine status: Patient reports being unvaccinated. Client denies travel out of the [place] in the last 14 days. Ebola Screen: Patient negative for fever greater than or equal to 101.5 degrees Fahrenheit, and additional compatible Ebola Virus Disease symptoms. Initial Sepsis Screen: Does the patient meet any 2 criteria? No. Patient's initial sepsis screen is negative. Does the patient have a suspected source of infection? No. Patient's initial sepsis screen is negative. Risk Assessment: Do you want to hurt yourself or someone else? Patient reports no desire to harm self or others. Onset of symptoms was January 31, 2022. 12:46 Method Of Arrival: Ambulatory vg1 12:46 Acuity: DELMI 4 vg1 Triage Assessment: 12:48 General: Appears uncomfortable, Behavior is calm, cooperative. Pain: Complains of pain vg1 in generalize body Pain currently is 5 out of 10 on a pain scale. Neuro: Level of Consciousness is awake, alert, obeys commands, Oriented to person, place, time, situation. Cardiovascular: Patient's skin is warm and dry. Respiratory: Airway is patent Respiratory effort is even, unlabored. GI: Patient currently denies diarrhea, nausea, vomiting. Historical: - Allergies: 12:48 Vicodin; vg1 - Home Meds: 12:48 Zoloft Oral [Active]; vg1 - PMHx: 12:48 Anxiety; depressive disorder; vg1 - PSHx: 12:48 section; hysterectomy; vg1 - Immunization history:: Client reports having NOT received the Covid vaccine. - Social history:: Smoking status: Patient denies any tobacco usage or history of. Assessment: 13:45 Reassessment: Pt states that she must leave because her is having an emergency ss and she cannot stay at this time. Vital Signs: 12:46 BP 128 / 90; Pulse 70; Resp 17; Temp 99.0(O); Pulse Ox 100% on R/A; Weight 89.36 kg; vg1 Height 5 ft. 5 in. (165.10 cm); Pain 5/10; 12:46 Body Mass Index 32.78 (89.36 kg, 165.10 cm) vg1 ED Course: 12:25 Patient arrived in ED. as 12:48 Triage completed. vg1 12:48 Arm band placed on. vg1 12:53 Shahbaz Corado MD is Attending Physician. [email or web address] 14:07 XRAY Chest (1 view) In Process Unspecified. EDMS Administered Medications: No medications were administered Outcome: 14:03 Patient left the ED. ss Signatures: Dispatcher [employer] EDMS Shahbaz Corado MD MD cha Martinez, Amelia as Smirch, Shelby, ELIJAH RN Kareen Stephenson RN RN vg1
[2022-02-05 14:13] VITALS: BP 128/90; TEMP 99; O2SAT 100
--- NOTE | 2022-02-05 14:24 | RAD REPORT ---
EXAM DESCRIPTION: RAD - Chest Single View - 02/05/2022 2:05 pm CLINICAL HISTORY: COUGH COMPARISON: Chest Single View dated 10/07/2021; Chest Single View dated 10/02/2021; Chest Single View dated 09/29/2021; Chest Single View dated 04/11/2021 FINDINGS: Lines: None. Lungs: No evidence of edema or pneumonia. Pleural: No significant pleural effusions or pneumothorax. Cardiac: Cardiomegaly. Mediastinum: Within normal limits. Bones: No acute fractures. Other: None IMPRESSION: No acute cardiopulmonary disease.
== END 2022-02-05 14:03 | disposition left against medical advice (07) ==
LOC: ER 12:22
DX: Z53.21 Procedure and treatment not carried out due to patient leaving prior to being seen by health care provider (principal)
CPT/HCPCS: 0240U; 71045; 99282

== ENCOUNTER 2022-02-06 09:31 | Emergency (ER) | payer SELFPAY ==
--- OUTSIDE RECORDS SUMMARY | 2022-02-06 10:23 | XMS REPORT | Continuity of Care Document ---
:1975 [facility] t Address [address] [place] [address] Care Team Providers Name Role Phone EMILIANO Mercado [facility] Primary Care P hysician Unavailable CRISTAL [...] Holland Attending Clinician Lalita Machado Attending Clinician ( [phone] Juve Cisneros Attending Clinician Young Christy Attending Clinician Darren Mars Attending Clinician Asim Amato Attending Clinician Sofiya Arora Attending Clinician Sunny Rodriguez Attending Clinician Nabor Snow Attending Clinician Joy Mercer Attending Clinician [phone] CRISTAL YOUNG Admitting Clinician Unavailable ALEJANDRINA PENA Admitting Clinician Unavailable RANJIT CHURCH Admitting Clinician Unavailable DIANA BRADFORD Admitting Clinician Unavailable Darren Mars Admitting Clinician Nabor Snow Admitting Clinician Payers Payer Name Policy Type Policy Number Effective Date Expiration Date S ource [employer] [id number] 2018 WOMEN 00:00:00 MEDICAID PENDING PENDING 2021 00:00:00 Problems Condition Condition Condition Status Onset Resolution Last Treating Co mments Source Name Details Category Date Date Treatment Clinician Date PANIC PANIC Diagnosis Active 2018-06-23 Mem oria ATTACK ATTACK 1-16 10:12:00 l Active 00:00: Arthur 04/10/2018 [facility] HEART HEART Diagnosis Active 2018-06-17 Me moria PROBLEMS PROBLEMS 1-04 21:29:00 l Active 00:00: [place] 03/29/2018 [facility] SOB WEAK SOB WEAK Diagnosis Active 2018-07-04 Memoria Active 11-16 16:41:00 l 11/16/2017 00:00: Cheko tyler [facility] 00 [place] DIZZY/ DIZZY/ Diagnosis Active 2018-06-20 Me moria WEAKNESS WEAKNESS 10-31 19:28:00 l Active 00:00: [place] 10/31/2017 00 [facility] CHEST PAIN CHEST Diagnosis Active 2018-06-23 Memoria PAIN 10-25 10:12:00 l Active 00:00: Arthur 10/25/2017 00 [facility] ABD PAIN ABD PAIN Diagnosis Active 2018-06-20 Memoria AND BACKK AND BACKK 10-13 19:28:00 l PAIN PAIN 00:00: [place] Active 00 10/13/2017 [facility] UTERINE UTERINE Diagnosis Active 2016-05-01 Memoria FIBROIDS-D FIBROIDS-D 04-24 11:50:00 l 25.9/ 25.9/ 00:00: Arthur MENORRHAGI MENORRHAGI 00 A-N92.0/ A-N92.0/ DYSMENORRH DYSMENORRH EA-N94 EA-N94 Active 04/24/2016 [place] FEVER FEVER Diagnosis Active 2015-032016-03-17 Mem oria Active 05-18 16:45:00 l 03/17/2016 00:00: Cheko tyler [facility] 00 [place] ARM PAIN ARM PAIN Diagnosis Active 2015-10-04 Memoria Active 08-02 06:03:00 l 08/03/2015 00:00: Cheko tyler 00 [facility] SHORTNESS SHORTNESS Diagnosis Active 2015-04-07 Memoria OF BREATH OF BREATH 04-07 10:14:00 l Active 00:00: [place] 04/07/2015 00 [facility] CHEST CHEST Diagnosis Active 2014-11-25 Mem oria PAIN, PAIN, 11-05 16:15:00 l ANEMIA ANEMIA 00:00: Arthur Active 00 11/05/2014 [facility] SOB SOB Diagnosis Active 2012-032013-03-07 Mem oria Active 05-08 10:30:00 l 03/07/2013 00:00: Cheko tyler 00 [facility] VOMITING VOMITING Diagnosis Active 2012-032013-03-07 Memoria Active 05-08 15:44:00 l 03/07/2013 00:00: Cheko tyler 00 [facility] MOUTH PAIN MOUTH Diagnosis Active 2012-04-04 Memoria PAIN 1-09 02:18:00 l Active 00:00: Arthur 04/03/2012 00 [facility] No known No known Disease Unive rs active active ity of problems problems [facility] Weakness Weakness Problem 2018-10-28 Memoria 10/28/2018 15:48:36 l Florence Avina [facility] Major Major Problem 2018-10-28 Memor ia depressive depressive 15:48:36 l disorder, disorder, Herm stevie single single episode, episode, unspecifie unspecifie d d 10/28/2018 [facility] Allergy Allergy Problem 2018-10-28 Me moria status to status to 15:48:36 l narcotic narcotic Cheko n agent agent status status 10/28/2018 [facility] Hyperlipid Hyperlipi Problem 2018-10-28 Memoria emia, demia, 15:48:36 l unspecifie unspecifie He rmann d d 10/28/2018 Florence Grewal [facility] 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: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 [place] cervix and cervix and uterus uterus 10/16/2018 [facility] [place] manager intermediate FCI Problem 2018-05-15 Memoria (current) (current) 15:12:19 l use of use of Arthur aspirin aspirin 05/15/2018 [facility] Anemia, Anemia, Problem 2018-06-06 Ga moria unspecifie unspecifie 12:26:54 l d d Arthur 06/06/2018 [facility] Essential Problem 2018-05-02 Ga moria (primary) Essential 13:32:53 l hypertensi (primary) Her szymanski on hypertensi on 05/02/2018 [facility] Altered Altered Problem 2018-05-20 Me moria mental mental 16:43:34 l status, status, Arthur unspecifie unspecifie d d 05/20/2018 [facility] Hyperlipid Hyperlipi Problem Resolve 2018-10-28 Memoria emia demia d 15:48:36 l (disorder) (disorder) He rmann Resolved Problem 10/28/2018 [facility], [facility] [place] None None Problem Resolve 2018-10-28 Yamil brandi (qualifier (qualifier d 15:48:36 l value) value) [place] Resolved Problem 10/28/2018 [facility] [place], [facility], [facility] Anemia Anemia Problem Active 2018-10-28 Yamil brandi (disorder) (disorder) 15:48:36 l Active [place] Problem 10/28/2018 [facility], [facility] Dysmenorrh Dysmenorr Problem Active 2018-10-28 Memoria ea hea 15:48:36 l (disorder) (disorder) He rmann Active Problem 10/28/2018 [facility], [facility] Menorrhagi Problem Active 2018-10-28 M emoria a Menorrhagi 15:48:36 l (finding) a [place] (finding) Active Problem 10/28/2018 [facility], [facility] Uterine Uterine Problem Active 2018-10-28 Me moria leiomyoma leiomyoma 15:48:36 l (disorder) (disorder) He rmann Active Problem 10/28/2018 [facility], [facility] History of Past Illness Condition Condition Condition Status Onset Resolution Last Treating Co mments Source Name Details Category Date Date Treatment Clinician Date Anxiety Anxiety Problem 2018-10-28 2018-10-28 Memoria disorder, disorder, - 15:48:36 15:48:36 l unspecifie unspecifie 06:00: He rmann d d 00 04/10/2018 9 [facility] Chest Chest Problem 2018-10-16 2018-10-16 M emoria pain, pain, - 15:24:24 15:24:24 l unspecifie unspecifie 06:00: He rmann d d 00 03/29/2018 9 [facility] Myalgia Myalgia Problem 2018-06-06 2018-06-06 Memoria 11/17/201711-17 12:26:54 12:26:54 l 06/06/2018 05:00: Cheko tyler [address] Shortness Shortness Problem 2018-06-06 2018-06-06 Memoria of breath of breath 11-17 12:26:54 12:26:54 l 11/17/2017 05:00: Cheko tyler 06/06/2018 00 [facility] Disorienta Problem 2018-05-20 2018-05-20 Memoria Germain schererorienta 10-31 16:43:34 16:43:34 l unspecifie tion, 05:00: Cheko sol unspecifie 00 d 10/31/2017 05/20/2018 [facility] Gastro-eso Gastro-es Problem 2018-05-15 2018-05-15 Memoria phageal ophageal 10-26 15:12:19 15:12:19 l reflux reflux 05:00: Arthur disease disease 00 without without esophagiti esophagiti s s 10/26/2017 9 [facility] Calculus Calculus Problem 2018-05-02 2018-05-02 Memoria of ureter of ureter 10-13 13:32:53 13:32:53 l 10/13/2017 05:00: Cheko tyler 05/02/2018 00 [facility] Unspecifie Unspecifi Problem 2018-05-02 2018-05-02 Memoria d renal ed renal 10-13 13:32:53 13:32:53 l colic colic 05:00: Arthur 10/13/2017 00 05/02/2018 [facility] Discharge Problem 2015-032016-03-20 2016-03-20 Memoria Diagnosis: Discharge 05-18 04:09:49 04:09:49 l Acute URI Diagnosis: 06:00: Her szymanski Acute URI 00 03/17/2016 03/20/2016 [facility] Discharge Problem 2015-032016-03-20 2016-03-20 Memoria Diagnosis: Discharge 05-18 04:09:49 04:09:49 l Acute UTI Diagnosis: 06:00: Her szymanski Acute UTI 00 03/17/2016 03/20/2016 [facility] Discharge Discharge Problem 2015-08-06 2015-08-06 Memoria Diagnosis: Diagnosis: 08-02 04:50:15 04:50:15 l Pain, arm, Pain, arm, 05:00: He rmann right right 00 08/03/2015 08/06/2015 [facility] Discharge Discharge Problem 2014-11-06 2014-11-06 Memoria Diagnosis: Diagnosis: 11-03 07:57:24 07:57:24 l Microcytic Microcytic 05:00: He stevie anemia anemia 00 11/03/2014 11/06/2014 [facility] Discharge Discharge Problem 2014-11-06 2014-11-06 Meminderjit Diagnosis: Diagnosis: 11-03 07:57:24 07:57:24 l Chest pain Chest pain 05:00: He rmann 11/03/201411/06/2014 [facility] Allergies, Adverse Reactions, Alerts Allergy Allergy [...] Source Exposure to 2021-10-08 2021-10-18 Not sure [facility] SARS-CoV-2 00:00:00 12:20:00 [facility] (event) Branch Alcohol intake 2021-10-18 2021-10-18 Current University of 00:00:00 00:00:00 non-drinker of [facility] alcohol (finding) Branch Tobacco use and 2017-07-13 2017-07-13 Smokeless tobacco Un iversity of exposure 00:00:00 00:00:00 non-user [facility] Social History 2015-08-03 2015-08-03 [facility] 14:56:09 14:56:09 Sex Ass[birth year] At [birth year] [facility] of 00:00:00 00:00:00 [facility] Smoking Status Start Date Stop Date Source Never smoked tobacco [facility] Medications Ordered Filled Start Stop Current Ordering Indication Dosage Frequency Signature Comments Components Source Medication Medication Date Date Medication? Clinician (SIG) Name Name ibuprofen No 600mg 600 mg, Uni vers (IBU) 7-26 07-26 Oral, ity of tablet 600 15:45: 16:12 ONCE, 1 Eddie as mg 00 :00 dose, On [facility] Branch 10/18/21 at 1045, MESSI Dose 2021-0 No 250 Unknown 10-13 00:00: 00 TAKE 1 2021-0 No 20 TABLET BY 7-21 MOUTH 4 00:00: TIMES DAILY 00 Dose 2-0 No 250 Unknown 10-13 00:00: 00 TAKE 1 2021-0 No 20 TABLET BY 7-21 MOUTH 4 00:00: TIMES DAILY 00 Dose 2-0 No 250 Unknown 10-13 00:00: 00 TAKE 1 2021-0 No 20 TABLET BY 721 MOUTH 4 00:00: TIMES DAILY 00 DISSOLVE [...] 12 HOURS 00 FOR 10 DAYS Dose 2-0 No Unknown 10-11 00:00: 00 TAKE 1 2021-0 No 100 CAPSULE BY 7-19 MOUTH EVERY 00:00: 12 HOURS 00 FOR 10 DAYS sertraline 2-0 No 1mg 25 mg 7-15 [...] HOURS 00 FOR 10 DAYS TAKE 1 2022-0 No 100 CAPSULE BY 7-15 MOUTH EVERY [...] DAYS TED DE LA CRUZ DISSOLVE 1 No 10 NICO IN 7-07 MOUTH 5 00:00: TIMES DAILY 00 Dose 2021-0 No 250 Unknown 09-29 00:00: 00 TAKE 1 2021-0 No 100 CAPSULE BY 7-07 MOUTH EVERY 00:00: 12 HOURS 00 FOR 10 DAYS TED DE LA CRUZ DISSOLVE 1 0 No 10 NICO IN 7-07 MOUTH 5 00:00: TIMES DAILY 00 Dose 2021-0 No 250 Unknown 09-29 00:00: 00 iopamidol 2021- No [id number] 70mL 70 mL, Univers (ISOVUE 09-24 Intravenou ity o f 370-500 mL) 17:17: 17:30 s, ONCE, 1 [place] injection 00 :00 dose, On Medica l 70 mL 09/24/21 Branch at 1230, Routine dicyclomine Yes [id number] 20mg Take 1 Univers 20 mg 7-02 tablet by ity of tablet 00:00: mouth 4 [place] 00 (four) Medical times Branch daily. docusate Yes [id number] 250mg Take 1 U nivers sodium 250 7- capsule by ity of mg capsule 00:00: mouth once [place] 00 daily as Medical needed for Branch Constipati on. ondansetron Yes [id number] 4mg Take 1 Univers 4 mg 7-02 tablet by ity of disintegrat 00:00: mouth [place] ing tablet 00 every 4 Medica l (four) Branch hours as needed for Nausea and Vomiting (N/V). dicyclomine 2-0 Yes [id number] 20mg Take 1 Univers 20 mg 7-02 tablet by ity of tablet 00:00: mouth 4 [place] 00 (four) Medical times Branch daily. docusate 2022-0 Yes [id number] 250mg Take 1 U nivers sodium 250 7-02 capsule by ity of mg capsule 00:00: mouth once [place] 00 daily as Medical needed for Branch Constipati on. ondansetron 2021-0 Yes [id number] 4mg Take 1 Univers 4 mg 7-02 tablet by ity of disintegrat 00:00: mouth [place] ing tablet 00 every 4 Medica l (four) Branch hours as needed for Nausea and Vomiting (N/V). ibuprofen 2021-0 No 1mg 800 mg 6-29 tablet 00:00: 00 tizanidine 2022-0 No 1mg 4 mg 6-29 capsule 00:00: 00 Dose 2022-0 No Unknown 29 00:00: 00 Dose 2022-0 No Unknown -29 00:00: 00 ibuprofen 2022-0 No 1mg 800 mg 6-29 tablet 00:00: 00 tizanidine 2022-0 No 1mg 4 mg 6-29 capsule 00:00: 00 Dose 2022-0 No Unknown 29 00:00: 00 TAKE 2 2022-0 No TABLETS [...] No Unknown 6-29 00:00: 00 TAKE 1 2022-0 No CAPSULE BY 6-29 MOUTH EVERY 00:00: 12 HOURS 00 FOR 10 DAYS TED DE LA CRUZ TAKE 1 2-0 No CAPSULE BY 6-29 MOUTH EVERY 00:00: 8 HOURS 00 NEEDED FOR COUGH AND CONGESTION Dose 2022-0 No Unknown 09-21 00:00: 00 TAKE 1 2-0 No CAPSULE BY 6-29 MOUTH EVERY 00:00: 12 HOURS 00 FOR 10 DAYS TED DE LA CRUZ ibuprofen 2022-0 No 1mg 800 mg 6-29 tablet 00:00: 00 tizanidine 2022-0 No 1mg 4 mg 6-29 capsule 00:00: 00 Dose 2022-0 No Unknown 09-21 00:00: 00 Dose 2022-0 No Unknown 09-21 00:00: 00 TAKE 2 [...] capsule 00:00: 00 Dose 2022-0 No Unknown 29 00:00: 00 Dose 2022-0 No Unknown 29 00:00: 00 TAKE 2 2022-0 No TABLETS [...] 10 mg 2-03 nico 00:00: 00 nitrofurant 2022-0 No 1mg oin 2-03 macrocrysta 00:00: l [...] 10 mg 04-22 nico 00:00: 00 cephALEXin 0 2021- No 500mg 500 mg, Un kiara (KEFLEX) 04-10 Oral, ity of capsule 500 21:35: 21:51 ONCE, 1 [place] mg 00 :00 dose, On Medical [place] Branch 04/10/21 at 1545, MESSI
Re ason for Anti-Infec tive: Documented Infection< br>Documen kuldip Infection Site: Urine
D uration of Therapy: 7 days cephALEXin 2021- No [id number] 500mg Take 1 Univers (KEFLEX) 04-10 capsule [...] 2215, Until Discontinu ed, Routine naproxen Yes [id number] 550mg Take 1 U nivers sodium 550 6-18 tablet by ity of mg tablet 00:00: mouth (two) Medical times Branch daily with meals. naproxen Yes [id number] 550mg Take 1 U nivers sodium 550 6-18 tablet by ity of mg tablet 00:00: mouth (two) Medical times Branch daily with meals. naproxen 2020-0 Yes [id number] 550mg Take 1 U nivers sodium 550 6-18 tablet by ity of mg tablet 00:00: mouth (two) Medical times Branch daily with meals. naproxen Yes [id number] 550mg Take 1 U nivers sodium 550 6-18 tablet by ity of mg tablet 00:00: mouth (two) Medical times Branch daily with meals. naproxen Yes [id number] 550mg Take 1 U nivers sodium 550 -18 tablet by ity of mg tablet 00:00: mouth 2 00 (two) Medical times Branch daily with meals. acetaminoph 2020- No 650mg 650 mg, U nivers en 05-05 Oral, ity of (TYLENOL) 22:45: 21:36 ONCE, 1 [place] tablet 650 00 :00 dose, Wed Medi liz mg 05/05/20 at Branch 1645, MESSI cephALEXin 2020- No [id number] 500mg Take 1 Univers 500 mg 05-05 [...] Chloride 8-25 1000 l 0.9% 03:04: ml/hr, [place] (Bolus) IV 00 Infuse Over: 1 hr, Route: IV, 1,000, Drug form: INJ, ONCE, Priority: STAT, Dosing Weight 68.182 kg, Start date: 11/16/17 22:04:00 CDT, Stop date: 11/16/17 22:04:00 CDT Sodium 2018-0 No 1,000 mL, Memori a Chloride 8-25 1000 l 0.9% 03:04: ml/hr, [place] (Bolus) IV 00 Infuse Over: 1 hr, Route: IV, 1,000, Drug form: INJ, ONCE, Priority: STAT, Dosing Weight 68.182 kg, Start date: 11/16/17 22:04:00 CDT, Stop date: 11/16/17 22:04:00 CDT Sodium 2018-0 No 1,000 mL, Memori a Chloride 8-25 1000 l 0.9% 03:04: ml/hr, [place] (Bolus) IV 00 Infuse Over: 1 hr, [...] Chloride 8-25 1000 l 0.9% 03:04: ml/hr, [place] (Bolus) IV 00 Infuse Over: 1 hr, [...] 0.9% 8-25 (Same as: l 03:01: BD [place] Posiflush) Saline No Notes: Memoria Flush 0.9% 8-25 (Same as: l 03:01: BD [place] Posiflush) Saline No Notes: Memoria Flush 0.9% 8-25 (Same as: l 03:01: BD Arthur 00 Posiflush) hydroxyzine 2017-0 No 1mg HCl 50 mg 8-16 tablet 00:00: 00 hydroxyzine 2017-0 No 1mg HCl 50 mg 8-16 tablet 00:00: 00 hydroxyzine 2017-0 No 1mg HCl 50 mg 8-16 tablet 00:00: 00 hydroxyzine 2017-0 No 1mg HCl 50 mg 8-16 tablet 00:00: 00 hydroxyzine 2017-0 No 1mg HCl 50 mg 8-16 tablet 00:00: 00 Saline No Notes: Memoria Flush 0.9% 8-08 (Same as: l 20:09: BD Arthur 00 Posiflush) Saline No Notes: Memoria Flush 0.9% 8-08 (Same as: l 20:09: BD Arthur 00 Posiflush) Saline No Notes: Memoria Flush 0.9% 8-08 (Same as: l 20:09: BD [place] 00 Posiflush) Saline No Notes: Memoria Flush 0.9% 8-08 (Same as: l 20:09: BD Arthur 00 Posiflush) Saline No Notes: Memoria Flush 0.9% 8-08 (Same as: l 20:09: BD [place] 00 Posiflush) Maalox No Notes: Memoria Regular 10-26 (Same As: l Strength 14:00: Tums) [place] TAB 00 Calcium Carbonate 500 mg = [...] calcium carbonate ( mg elemental calcium) Famotidine 2018-0 Yes 40 mg = 1 Me moria 40 MG Oral 8-03 tab, PO, l Tablet 07:23: Daily, # [place] [Pepcid] 00 30 tab, 0 Refill(s) Famotidine [...] tab, PO, l Tablet 07:23: Daily, # [place] [Pepcid] 00 30 tab, 0 Refill(s) Famotidine 2018-0 Yes 40 mg = 1 Me moria 40 MG Oral 8-03 tab, PO, l Tablet 07:23: Daily, # [place] [Pepcid] 00 30 tab, 0 Refill(s) Lidocaine 0 No Notes: Memori a Viscous 2% 8-03 (Same as: l mucous 06:59: Xylocaine) Elisa nn membrane 00 solution Lidocaine No Notes: Memori a Viscous 2% 8-03 (Same as: l mucous 06:59: Xylocaine) Elisa nn membrane 00 solution Lidocaine 0 No Notes: Memori a Viscous 2% 8-03 (Same as: l mucous 06:59: Xylocaine) Elisa nn membrane 00 solution Lidocaine 0 No Notes: Memori a Viscous 2% 8-03 (Same as: l mucous 06:59: Xylocaine) Elsia nn membrane 00 solution Lidocaine 0 No Notes: Memori a Viscous 2% 8-03 (Same as: l mucous 06:59: Xylocaine) Elias nn membrane 00 solution Reglan No Notes: Memoria 8-03 (Same as: l 06:17: Reglan) Arthur Reglan No Notes: Memoria 8-03 (Same as: l 06:17: Reglan) Arthur Reglan No Notes: Memoria 8-03 (Same as: l 06:17: Reglan) Arthur Reglan No Notes: Memoria 10-26 (Same as: l 06:17: Reglan) Arthur Reglan No Notes: Memoria 10-26 (Same as: l 06:17: Reglan) [place] Maalox No Notes: Memoria Regular 10-26 (Same As: l Strength 06:12: Tums) [place] TAB 00 Calcium Carbonate 500 mg = [...] 10-26 (Same As: l Strength 06:12: Tums) [place] TAB 00 Calcium Carbonate 500 mg = 200 mg elemental calcium Dose = mg calcium carbonate ( mg elemental calcium) Maalox No Notes: Memoria Regular 10-26 (Same As: l Strength 06:12: Tums) [place] TAB 00 Calcium Carbonate 500 mg = [...] 8- Take with l 04:18: food. Arthur Aspirin No Notes: Memoria 8- Take with l 04:18: food. [place] Aspirin No Notes: Memoria 8- Take with l 04:18: food. Arthur 00 Aspirin No Notes: Memoria 8- Take with l 04:18: food. [place] 00 Aspirin No Notes: Memoria 8- Take with l 04:18: food. citalopram 2018-0 No 1mg 20 mg 8-02 [...] No 30 mg, Memori a 30 mg/mL 7-21 Route: l injectable 17:11: IVP, Drug He [...] day, # 20 tab, 0 Refill(s) Morphine 2017-0 No 2 mg, 1 Memori a 10-13 mL, Route: l 14:54: IVP, Drug Arthur 00 form: SOLN, ONCE, Dosing Weight 76, kg, Priority: STAT, Start date: 10/13/17 9:54:00 CDT, Stop date: 10/13/17 9:54:00 CDT Ondansetron 2017-0 No Notes: Yamil brandi 10-13 (Same as: l 14:54: Zofran) Arthur 00 MEDICATION WASTE Product Size: 4 mg Product Wasted: ___ mg Sodium 2018-0 No 1,000 mL, Memori a Chloride 7-21 1000 l 0.9% 14:54: ml/hr, [place] (Bolus) IV 00 Infuse Over: 1 hr, Route: IV, 1,000, Drug form: INJ, ONCE, Priority: STAT, Dosing Weight 76 kg, Start date: 10/13/17 9:54:00 CDT, Stop date: 10/13/17 9:54:00 CDT Saline 2017-0 No Notes: Memoria Flush 0.9% 7-21 (Same as: l 14:54: BD Arthur Posiflush) Morphine 2018-0 No 2 mg, 1 Memori a 7-21 mL, Route: l 14:54: IVP, Drug [place] form: SOLN, ONCE, Dosing Weight 76, kg, Priority: STAT, Start date: 10/13/17 9:54:00 CDT, Stop date: 10/13/17 9:54:00 CDT Ondansetron 2017-0 No Notes: Yamil brandi 7-21 (Same as: l 14:54: Zofran) Arthur 00 MEDICATION WASTE Product Size: 4 mg Product Wasted: ___ mg Sodium 2018-0 No 1,000 mL, Memori a Chloride 7-21 1000 l 0.9% 14:54: ml/hr, [place] (Bolus) IV 00 Infuse Over: 1 hr, Route: IV, 1,000, Drug form: INJ, ONCE, Priority: STAT, Dosing Weight 76 kg, Start date: 10/13/17 9:54:00 CDT, Stop date: 10/13/17 9:54:00 CDT Saline 2018-0 No Notes: Memoria Flush 0.9% 7-21 (Same as: l 14:54: BD Arthur Posiflush) Morphine 2018-0 No 2 mg, 1 Memori a 7-21 mL, Route: l 14:54: IVP, Drug [place] 00 form: SOLN, ONCE, Dosing Weight 76, kg, Priority: STAT, Start date: 10/13/17 9:54:00 CDT, Stop date: 10/13/17 9:54:00 CDT Ondansetron 2018-0 No Notes: Yamil brandi 7-21 (Same as: l 14:54: Zofran) [place] 00 MEDICATION WASTE Product Size: 4 mg Product Wasted: ___ mg Sodium 2018-0 No 1,000 mL, Memori a Chloride 7-21 1000 l 0.9% 14:54: ml/hr, Arthur (Bolus) IV 00 Infuse Over: 1 hr, Route: IV, 1,000, Drug form: INJ, ONCE, Priority: STAT, Dosing Weight 76 kg, Start date: 10/13/17 9:54:00 CDT, Stop date: 10/13/17 9:54:00 CDT Saline 0 No Notes: Memoria Flush 0.9% 7-21 (Same as: l 14:54: BD Arthur Posiflush) Morphine 2017- No 2 mg, 1 Memori a 7-21 mL, Route: l 14:54: IVP, Drug Arthur form: SOLN, ONCE, Dosing Weight 76, kg, Priority: STAT, Start date: 10/13/17 9:54:00 CDT, Stop date: 10/13/17 9:54:00 CDT Ondansetron 2017-0 No Notes: Yamil brandi 7-21 (Same as: l 14:54: Zofran) [place] 00 MEDICATION WASTE Product Size: 4 mg Product Wasted: ___ mg Sodium 2018- No 1,000 mL, Memori a Chloride 7-21 1000 l 0.9% 14:54: ml/hr, Arthur (Bolus) IV 00 Infuse Over: 1 hr, Route: IV, 1,000, Drug form: INJ, ONCE, Priority: STAT, Dosing Weight 76 kg, Start date: 10/13/17 9:54:00 CDT, Stop date: 10/13/17 9:54:00 CDT Saline 2017-0 No Notes: Memoria Flush 0.9% 7-21 (Same as: l 14:54: BD [place] 00 Posiflush) Morphine 2018-0 No 2 mg, 1 Memori a 7-21 mL, Route: l 14:54: IVP, Drug Arthur 00 form: SOLN, ONCE, Dosing Weight 76, kg, Priority: STAT, Start date: 10/13/17 9:54:00 CDT, Stop date: 10/13/17 9:54:00 CDT Ondansetron 2017- No Notes: Yamil brandi 7-21 (Same as: l 14:54: Zofran) MEDICATION WASTE Product Size: 4 mg Product Wasted: ___ mg Sodium 2017- No 1,000 mL, Memori a Chloride -21 1000 l 0.9% 14:54: ml/hr, [place] (Bolus) IV 00 Infuse Over: 1 hr, Route: IV, 1,000, Drug form: INJ, ONCE, Priority: STAT, Dosing Weight 76 kg, Start date: 10/13/17 9:54:00 CDT, Stop date: 10/13/17 9:54:00 CDT Saline 2017- No Notes: Memoria Flush 0.9% 7-21 (Same as: l 14:54: BD Posiflush) docusate 2018-0 Yes 250mg Take 1 Univer [...] by ity of capsule 00:00: mouth 3 (three) Medical times Branch daily. ibuprofen 2018-0 [...] 2-06 (Same as: l 19:00: Mylicon) Arthur licon No Notes: Memoria 2-06 (Same as: l 19:00: Mylicon) Arthur Mylicon No Notes: Memoria 2-06 (Same as: l 19:00: Mylicon) Arthur licon No Notes: Memoria 2-06 (Same as: l 19:00: Mylicon) [place] licon No Notes: Memoria 2-06 (Same as: l 19:00: Mylicon) [place] 00 Ondansetron No Notes: Yamil brandi 2-06 (Same as: l 16:57: Zofran) Arthur 00 MEDICATION WASTE Product Size: 4 mg Product Wasted: ___ mg Morphine No Notes: Memoria 2-06 (Same l 16:57: as:MORPhin [place] 00 e Sulfate) Docusate No Notes: Memoria 2-06 (Same as: l 16:57: Colace) Arthur 00 (Do Not Crush) Diphenhydra No Notes: Yamil brandi mine 2- (Same as: l 16:57: Benadryl) Calcium No 1,000 mL, Memor ia Chloride 2 Rate: 125 l 0.0014 16:57: ml/hr, MEQ/ML / 00 Infuse Potassium over: 8 Chloride hr, Route: 0.004 IV, Dosing MEQ/ML / Weight 75 Sodium kg, Total Chloride Volume: 0.103 1,000, MEQ/ML / Start Sodium date: Lactate 05/01/16 0.028 10:57:00 MEQ/ML REHAB TRAINER, Injectable Duration: Solution 30 day, Stop date: 05/31/16 10:56:00 REHAB TRAINER Ondansetron No Notes: Yamil brandi 2-06 (Same as: l 16:57: Zofran) Arthur 00 MEDICATION WASTE Product Size: 4 mg Product Wasted: ___ mg Morphine No Notes: Memoria 2-06 (Same l 16:57: as:MORPhin [place] 00 e Sulfate) Docusate No Notes: Memoria 2-06 (Same as: l 16:57: Colace) Arthur 00 (Do Not Crush) Diphenhydra No Notes: Yamil brandi mine 2-06 (Same as: l 16:57: Benadryl) [place] 00 Calcium 2016- No 1,000 mL, Memor ia Chloride 2-06 Rate: 125 l 0.0014 16:57: ml/hr, [place] MEQ/ML / 00 Infuse Potassium over: 8 Chloride hr, Route: 0.004 IV, Dosing MEQ/ML / Weight 75 Sodium kg, Total Chloride Volume: 0.103 1,000, MEQ/ML / Start Sodium date: Lactate 05/01/16 0.028 10:57:00 MEQ/ML REHAB TRAINER, Injectable Duration: Solution 30 day, Stop date: 05/31/16 10:56:00 REHAB TRAINER Ondansetron No Notes: Yamil brandi 2-06 (Same as: l 16:57: Zofran) Arthur 00 MEDICATION WASTE Product Size: 4 mg Product Wasted: ___ mg Morphine No Notes: Memoria 2-06 (Same l 16:57: as:MORPhin [place] 00 e Sulfate) Docusate No Notes: Memoria 2-06 (Same as: l 16:57: Colace) [place] 00 (Do Not Crush) Diphenhydra No Notes: Yamil brandi mine 2-06 (Same as: l 16:57: Benadryl) [place] 00 Calcium 2016-0 No 1,000 mL, Memor ia Chloride 2-06 Rate: 125 l 0.0014 16:57: ml/hr, [place] MEQ/ML / 00 Infuse Potassium over: 8 Chloride hr, Route: 0.004 IV, Dosing MEQ/ML / Weight 75 Sodium kg, Total Chloride Volume: 0.103 1,000, MEQ/ML / Start Sodium date: Lactate 05/01/16 0.028 10:57:00 MEQ/ML REHAB TRAINER, Injectable Duration: Solution 30 day, Stop date: 05/31/16 10:56:00 REHAB TRAINER Ondansetron No Notes: Yamil brandi 2-06 (Same as: l 16:57: Zofran) [place] 00 MEDICATION WASTE Product Size: 4 mg Product Wasted: ___ mg Morphine No Notes: Memoria 2- (Same l 16:57: as:MORPhin Arthur 00 e Sulfate) Docusate No Notes: Memoria 2- (Same as: l 16:57: Colace) [place]ye (Do Not Crush) Diphenhydra No Notes: Yamil brandi mine 2-06 (Same as: l 16:57: Benadryl) [place]ye Calcium No 1,000 mL, Memor ia Chloride 2- Rate: 125 l 0.0014 16:57: ml/hr, Arthur MEQ/ML / 00 Infuse Potassium over: 8 Chloride hr, Route: 0.004 IV, Dosing MEQ/ML / Weight 75 Sodium kg, Total Chloride Volume: 0.103 1,000, MEQ/ML / Start Sodium date: Lactate 05/01/16 0.028 10:57:00 MEQ/ML REHAB TRAINER, Injectable Duration: Solution 30 day, Stop date: 05/31/16 10:56:00 REHAB TRAINER Ondansetron No Notes: Yamil brandi 2- (Same as: l 16:57: Zofran) Arthur 00 MEDICATION WASTE Product Size: 4 mg Product Wasted: ___ mg Morphine No Notes: Memoria 2- (Same l 16:57: as:MORPhin [place] 00 e Sulfate) Docusate No Notes: Memoria 2- (Same as: l 16:57: Colace) Arthur 00 (Do Not Crush) Diphenhydra No Notes: [...] Sodium date: Lactate 05/01/16 0.028 10:57:00 MEQ/ML REHAB TRAINER, Injectable Duration: Solution 30 day, Stop date: 05/31/16 10:56:00 REHAB TRAINER ondansetron 2017-0 No Route: IV, Memoria (ANES) 2-06 Drug form: l 16:05: INJ, ONCE, Stop date: 05/01/16 10:05:00 REHAB TRAINER glycopyrrol 2017-0 No Route: IV, Memoria ate (ANES) 2- Drug form: l 16:05: INJ, ONCE, Stop date: 05/01/16 10:05:00 REHAB TRAINER neostigmine 2017-0 No Route: IV, Memoria (ANES) 2- Drug form: l 16:05: INJ, ONCE, Stop date: 05/01/16 10:05:00 REHAB TRAINER ketOROLAC 2017-0 No IV, ONCE Yamil brandi (ANES) 2-06 l 16:05: ondansetron 2017-0 No Route: IV, Memoria (ANES) 2-06 Drug form: l 16:05: INJ, ONCE Stop date: 05/01/16 10:05:00 REHAB TRAINER glycopyrrol 2017-0 No Route: IV, Memoria ate (ANES) 2-06 Drug form: l 16:05: INJ, ONCE Stop date: 05/01/16 10:05:00 REHAB TRAINER neostigmine 2017-0 No Route: IV, Memoria (ANES) 2-06 Drug form: l 16:05: INJ, ONCE, Stop date: 05/01/16 10:05:00 REHAB TRAINER ketOROLAC 2017-0 No IV, ONCE Yamil brandi (ANES) 2-06 l 16:05: ondansetron 2017-0 No Route: IV, Memoria (ANES) 2-06 Drug form: l 16:05: INJ, ONCE, Stop date: 05/01/16 10:05:00 REHAB TRAINER glycopyrrol 2017-0 No Route: IV, Memoria ate (ANES) 2-06 Drug form: l 16:05: INJ, ONCE Stop date: 05/01/16 10:05:00 REHAB TRAINER neostigmine 2017-0 No Route: IV, Memoria (ANES) 2- Drug form: l 16:05: INJ, ONCE, Stop date: 05/01/16 10:05:00 REHAB TRAINER ketOROLAC 2016-0 No IV, ONCE Yamil brandi (ANES) 2- l 16:05: Arthur 00 ondansetron No Route: IV, Memoria (ANES) 2 Drug form: l 16:05: INJ, ONCE, Stop date: 05/01/16 10:05:00 REHAB TRAINER glycopyrrol 0 No Route: IV, Memoria ate (ANES) 05-01 Drug form: l 16:05: INJ, ONCE, Stop date: 05/01/16 10:05:00 REHAB TRAINER neostigmine No Route: IV, Memoria (ANES) 2 Drug form: l 16:05: INJ, ONCE, Stop date: 05/01/16 10:05:00 REHAB TRAINER ketOROLAC 2016-0 No IV, ONCE Yamil brandi (ANES) 2 l 16:05: ondansetron No Route: IV, Memoria (ANES) 2 Drug form: l 16:05: INJ, ONCE, Stop date: 05/01/16 10:05:00 REHAB TRAINER glycopyrrol 0 No Route: IV, Memoria ate (ANES) 05-01 Drug form: l 16:05: INJ, ONCE, Stop date: 05/01/16 10:05:00 REHAB TRAINER neostigmine 0 No Route: IV, Memoria (ANES) 2 Drug form: l 16:05: INJ, ONCE, Stop date: 05/01/16 10:05:00 REHAB TRAINER ketOROLAC 0 No IV, ONCE Yamil brandi (ANES) 2-06 l 16:05: Hydromorpho No Notes: Yamil brandi ne 2-06 Same as l 16:01: Dilaudid Flumazenil No Notes: Memor ia 2-06 (Same as: l 16:01: Romazicon) Naloxone 2017-0 No Notes: Memoria 2-06 Same as l [...] Pain Score 1-3, Start date: 05/01/16 10:01:00 REHAB TRAINER, Duration: 1 doses or times, Stop date: [...] Sodium date: Lactate 05/01/16 0.028 10:01:00 MEQ/ML REHAB TRAINER, Injectable Duration: Solution 30 day, Stop date: 05/31/16 10:00:00 REHAB TRAINER Labetalol No Notes: Memori a 2-06 (Same [...] brandi 2-06 (Same as: l 16:01: Zofran) [place] 00 MEDICATION WASTE Product Size: 4 mg Product Wasted: ___ mg Morphine No Notes: Memoria 2 (Same l 16:01: as:MORPhin e Sulfate) Acetaminoph No 1,000 mg, M audraria en 05-01 Route: l 16:01: IVPB, Drug form: INJ, ONCE, Dosing Weight 74.091, kg, PRN Pain Score 1-3, Start date: 05/01/16 10:01:00 REHAB TRAINER, Duration: 1 doses or times, Stop date: Limited # of times Ketorolac No 4 days Memor ia 2-06 l 16:01: MEDICATION Arthur 00 WASTE Product Size: 30 mg Product Wasted: ___ mg Calcium No 1,000 mL, Memor ia Chloride 05-01 Rate: 125 l 0.0014 16:01: ml/hr, MEQ/ML / Infuse Potassium over: 8 Chloride hr, Route: 0.004 IV, Dosing MEQ/ML / Weight 75 Sodium kg, Total Chloride Volume: 0.103 1,000, MEQ/ML / Start Sodium date: Lactate 05/01/16 0.028 10:01:00 MEQ/ML REHAB TRAINER, Injectable Duration: Solution 30 day, Stop date: 05/31/16 10:00:00 REHAB TRAINER Labetalol No Notes: Memori a 2-06 (Same [...] brandi 2-06 (Same as: l 16:01: Zofran) [place] 00 MEDICATION WASTE Product Size: 4 mg Product Wasted: ___ mg Morphine No Notes: Memoria 2- (Same l 16:01: as:MORPhin [place] 00 e Sulfate) Acetaminoph No 1,000 mg, M audraria en 05-01 Route: l 16:01: IVPB, Drug form: INJ, ONCE, Dosing Weight 74.091, kg, PRN Pain Score 1-3, Start date: 05/01/16 10:01:00 REHAB TRAINER, Duration: 1 doses or times, Stop date: Limited # of times Ketorolac No 4 days Memor ia 2-06 l 16:01: MEDICATION Arthur 00 WASTE Product Size: 30 mg Product Wasted: ___ mg Calcium No 1,000 mL, Memor ia Chloride 05-01 Rate: 125 l 0.0014 16:01: ml/hr, [place] MEQ/ML / 00 Infuse Potassium over: 8 Chloride hr, Route: 0.004 IV, Dosing MEQ/ML / Weight 75 Sodium kg, Total Chloride Volume: 0.103 1,000, MEQ/ML / Start Sodium date: Lactate 05/01/16 0.028 10:01:00 MEQ/ML REHAB TRAINER, Injectable Duration: Solution 30 day, Stop date: 05/31/16 10:00:00 REHAB TRAINER Labetalol No Notes: Memori a 2- (Same [...] Notes: Memoria 2-06 (Same l 16:01: as:MORPhin [place] e Sulfate) Acetaminoph No 1,000 mg, M una en 2 Route: l 16:01: IVPB, Drug form: INJ, ONCE, Dosing Weight 74.091, kg, PRN Pain Score 1-3, Start date: 05/01/16 10:01:00 REHAB TRAINER, Duration: 1 doses or times, Stop date: Limited # of times Ketorolac 2016- No 4 days Memor ia 2-06 l 16:01: MEDICATION WASTE Product Size: 30 mg Product Wasted: ___ mg Calcium 2016- No 1,000 mL, Memor ia Chloride 2-06 Rate: 125 l 0.0014 16:01: ml/hr, [place] MEQ/ML / 00 Infuse Potassium over: 8 Chloride hr, Route: 0.004 IV, Dosing MEQ/ML / Weight 75 Sodium kg, Total Chloride Volume: 0.103 1,000, MEQ/ML / Start Sodium date: Lactate 05/01/16 0.028 10:01:00 MEQ/ML REHAB TRAINER, Injectable Duration: Solution 30 day, Stop date: 05/31/16 10:00:00 REHAB TRAINER Labetalol No Notes: Memori a 2-06 (Same as: l 16:01: Normodyne, [place] 00 Trandate) Push over 2 minutes Give bolus over 2-3 minutes. Calcium 2016- No 1,000 mL, Memor ia Chloride 2-06 Rate: 125 l 0.0014 16:01: ml/hr, Arthur MEQ/ML / 00 Infuse Potassium over: 8 Chloride hr, Route: 0.004 IV, Dosing MEQ/ML / Weight 75 Sodium kg, Total Chloride Volume: 0.103 1,000, MEQ/ML / Start Sodium date: Lactate 05/01/16 0.028 10:01:00 MEQ/ML REHAB TRAINER, Injectable Duration: Solution 30 day, Stop date: 05/31/16 10:00:00 REHAB TRAINER Labetalol 2016-0 No Notes: Memori a 2-06 (Same as: l 16:01: Normodyne, Arthur 00 Trandate) Push over 2 minutes Give [...] Pain Score 1-3, Start date: 05/01/16 10:01:00 REHAB TRAINER, Duration: 1 doses or times, Stop date: Limited # of times Ketorolac No 4 days Memor ia 05-01 l 16:01: MEDICATION WASTE Product Size: 30 mg Product Wasted: ___ mg acetaminoph No Route: IV, Memoria en (ANES) 05-01 Drug form: l (ANES) 15:38: INJ, Start Elisa date: 05/01/16 9:38:00 REHAB TRAINER, Stop date: 05/01/16 10:38:00 REHAB TRAINER acetaminoph No Route: IV, Memoria en (ANES) 05-01 Drug form: l (ANES) 15:38: INJ, Start Elisa date: 05/01/16 9:38:00 REHAB TRAINER, Stop date: 05/01/16 10:38:00 REHAB TRAINER acetaminoph No Route: IV, Memoria en (ANES) 05-01 Drug form: l (ANES) 15:38: INJ, Start Elisa date: 05/01/16 9:38:00 REHAB TRAINER, Stop date: 05/01/16 10:38:00 REHAB TRAINER acetaminoph No Route: IV, Memoria en (ANES) 05-01 Drug form: l (ANES) 15:38: INJ, Start Elisa date: 05/01/16 9:38:00 REHAB TRAINER, Stop date: 05/01/16 10:38:00 REHAB TRAINER acetaminoph 2017-0 No Route: IV, Memoria en (ANES) 2- Drug form: l (ANES) 15:38: INJ, Start Elisa date: 05/01/16 9:38:00 REHAB TRAINER, Stop date: 05/01/16 10:38:00 REHAB TRAINER hydromorpho 2017-0 No Route: IV, Memoria ne (ANES) 2 Drug form: l 15:02: INJ, ONCE, Arthur 00 Stop date: 05/01/16 9:02:00 REHAB TRAINER hydromorpho 2017-0 No Route: IV, Memoria ne (ANES) 2 Drug form: l 15:02: INJ, ONCE, Stop date: 05/01/16 9:02:00 REHAB TRAINER hydromorpho 2017-0 No Route: IV, Memoria ne (ANES) 05-01 Drug form: l 15:02: INJ, ONCE, Stop date: 05/01/16 9:02:00 REHAB TRAINER hydromorpho 2017-0 No Route: IV, Memoria ne (ANES) 2- Drug form: l 15:02: INJ, ONCE, Stop date: 05/01/16 9:02:00 REHAB TRAINER hydromorpho 2017-0 No Route: IV, Memoria ne (ANES) 2- Drug form: l 15:02: INJ, ONCE, Stop date: 05/01/16 9:02:00 REHAB TRAINER fentaNYL 2017-0 No Route: IV, Mem oria (ANES) 2- Drug form: l 14:37: INJ, ONCE, Stop date: 05/01/16 8:37:00 REHAB TRAINER lidocaine 2017-0 No Route: IV, Me moria (ANES) 2- Drug form: l 14:37: INJ, ONCE, Stop date: 05/01/16 8:37:00 REHAB TRAINER propofol 2017-0 No Route: IV, Mem oria (ANES) 2- Drug form: l 14:37: INJ, ONCE, Stop date: 05/01/16 8:37:00 REHAB TRAINER midazolam 2017-0 No Route: IV, Me moria (ANES) 2- Drug form: l 14:37: SOLN, Arthur 00 ONCE, Stop date: 05/01/16 8:37:00 REHAB TRAINER rocuronium 2017-0 No Route: IV, M emoria (ANES) 2- Drug form: l 14:37: INJ, ONCE, Arthur 00 Stop date: 05/01/16 8:37:00 REHAB TRAINER metoclopram 2017-0 No Route: IV, Memoria eda (ANES) 2- Drug form: l 14:37: INJ, ONCE, Arthur 00 Stop date: 05/01/16 8:37:00 REHAB TRAINER dexamethaso 2017-0 No Route: IV, Memoria ne (ANES) 2 Drug form: l 14:37: INJ, ONCE, Stop date: 05/01/16 8:37:00 REHAB TRAINER fentaNYL 2017-0 No Route: IV, Mem oria (ANES) 2- Drug form: l 14:37: INJ, ONCE, Stop date: 05/01/16 8:37:00 REHAB TRAINER lidocaine 2017-0 No Route: IV, Me moria (ANES) 2- Drug form: l 14:37: INJ, ONCE, [place] 00 Stop date: 05/01/16 8:37:00 REHAB TRAINER propofol 2017-0 No Route: IV, Mem oria (ANES) 2- Drug form: l 14:37: INJ, ONCE, Arthur 00 Stop date: 05/01/16 8:37:00 REHAB TRAINER midazolam 2017-0 No Route: IV, Me moria (ANES) 2- Drug form: l 14:37: SOLN, [place] ONCE, Stop date: 05/01/16 8:37:00 REHAB TRAINER rocuronium 2017-0 No Route: IV, M emoria (ANES) 2- Drug form: l 14:37: INJ, ONCE, [place] 00 Stop date: 05/01/16 8:37:00 REHAB TRAINER metoclopram 2017-0 No Route: IV, Memoria eda (ANES) 2- Drug form: l 14:37: INJ, ONCE, [place] 00 Stop date: 05/01/16 8:37:00 REHAB TRAINER dexamethaso 2017-0 No Route: IV, Memoria ne (ANES) 2- Drug form: l 14:37: INJ, ONCE, Stop date: 05/01/16 8:37:00 REHAB TRAINER fentaNYL 2017-0 No Route: IV, Mem oria (ANES) 2- Drug form: l 14:37: INJ, ONCE, Stop date: 05/01/16 8:37:00 REHAB TRAINER lidocaine 2017-0 No Route: IV, Me moria (ANES) 2- Drug form: l 14:37: INJ, ONCE, Stop date: 05/01/16 8:37:00 REHAB TRAINER propofol 2017-0 No Route: IV, Mem oria (ANES) 2- Drug form: l 14:37: INJ, ONCE, Stop date: 05/01/16 8:37:00 REHAB TRAINER midazolam 2017-0 No Route: IV, Me moria (ANES) 2 Drug form: l 14:37: SOLN, ONCE, Stop date: 05/01/16 8:37:00 REHAB TRAINER rocuronium 2017-0 No Route: IV, M emoria (ANES) 2 Drug form: l 14:37: INJ, ONCE, Stop date: 05/01/16 8:37:00 REHAB TRAINER metoclopram 2017-0 No Route: IV, Memoria eda (ANES) 2 Drug form: l 14:37: INJ, ONCE, Stop date: 05/01/16 8:37:00 REHAB TRAINER dexamethaso 2017-0 No Route: IV, Memoria ne (ANES) 2- Drug form: l 14:37: INJ, ONCE, Stop date: 05/01/16 8:37:00 REHAB TRAINER fentaNYL 2017-0 No Route: IV, Mem oria (ANES) 2- Drug form: l 14:37: INJ, ONCE, Stop date: 05/01/16 8:37:00 REHAB TRAINER lidocaine 2017-0 No Route: IV, Me moria (ANES) 2- Drug form: l 14:37: INJ, ONCE, Stop date: 05/01/16 8:37:00 REHAB TRAINER propofol 2017-0 No Route: IV, Mem oria (ANES) 2- Drug form: l 14:37: INJ, ONCE, [place] 00 Stop date: 05/01/16 8:37:00 REHAB TRAINER midazolam 2017-0 No Route: IV, Me moria (ANES) 2- Drug form: l 14:37: SOLN, Arthur 00 ONCE, Stop date: 05/01/16 8:37:00 REHAB TRAINER rocuronium 2017-0 No Route: IV, M emoria (ANES) 2- Drug form: l 14:37: INJ, ONCE, Arthur 00 Stop date: 05/01/16 8:37:00 REHAB TRAINER metoclopram 2017-0 No Route: IV, Memoria eda (ANES) 2- Drug form: l 14:37: INJ, ONCE, Arthur 00 Stop date: 05/01/16 8:37:00 REHAB TRAINER dexamethaso 2017-0 No Route: IV, Memoria ne (ANES) 2- Drug form: l 14:37: INJ, ONCE, [place] 00 Stop date: 05/01/16 8:37:00 REHAB TRAINER dexamethaso 2017-0 No Route: IV, Memoria ne (ANES) 2- Drug form: l 14:37: INJ, ONCE, Arthur 00 Stop date: 05/01/16 8:37:00 REHAB TRAINER fentaNYL 2017-0 No Route: IV, Mem oria (ANES) 2- Drug form: l 14:37: INJ, ONCE, [place] 00 Stop date: 05/01/16 8:37:00 REHAB TRAINER lidocaine 2017-0 No Route: IV, Me moria (ANES) 2- Drug form: l 14:37: INJ, ONCE, Arthur 00 Stop date: 05/01/16 8:37:00 REHAB TRAINER propofol 2017-0 No Route: IV, Mem oria (ANES) 2- Drug form: l 14:37: INJ, ONCE, [place] 00 Stop date: 05/01/16 8:37:00 REHAB TRAINER midazolam 2017-0 No Route: IV, Me moria (ANES) 2-06 Drug form: l 14:37: SOLN, [place] 00 ONCE, Stop date: 05/01/16 8:37:00 REHAB TRAINER rocuronium 2017-0 No Route: IV, M emoria (ANES) 05-01 Drug form: l 14:37: INJ, ONCE, Stop date: 05/01/16 8:37:00 REHAB TRAINER metoclopram 2017-0 No Route: IV, Memoria eda (ANES) 05-01 Drug form: l 14:37: INJ, ONCE, Stop date: 05/01/16 8:37:00 REHAB TRAINER famotidine 2017-0 No Route: IV, M emoria (ANES) 05-01 Drug form: l 14:22: INJ, ONCE, Stop date: 05/01/16 8:22:00 REHAB TRAINER phenylephri 2017-0 No Route: IV, Memoria ne (ANES) 05-01 Drug form: l 14:22: INJ, ONCE, Stop date: 05/01/16 8:22:00 REHAB TRAINER famotidine 2017-0 No Route: IV, M emoria (ANES) 05-01 Drug form: l 14:22: INJ, ONCE, Stop date: 05/01/16 8:22:00 REHAB TRAINER phenylephri 2017-0 No Route: IV, Memoria ne (ANES) 05-01 Drug form: l 14:22: INJ, ONCE, Stop date: 05/01/16 8:22:00 REHAB TRAINER famotidine 2017-0 No Route: IV, M emoria (ANES) 05-01 Drug form: l 14:22: INJ, ONCE, Stop date: 05/01/16 8:22:00 REHAB TRAINER phenylephri 2017-0 No Route: IV, Memoria ne (ANES) 05-01 Drug form: l 14:22: INJ, ONCE, Stop date: 05/01/16 8:22:00 REHAB TRAINER famotidine 2016-0 No Route: IV, M emoria (ANES) 2 Drug form: l 14:22: INJ, ONCE, Stop date: 05/01/16 8:22:00 REHAB TRAINER phenylephri 2017-0 No Route: IV, Memoria ne (ANES) 05-01 Drug form: l 14:22: INJ, ONCE, Stop date: 05/01/16 8:22:00 REHAB TRAINER famotidine No Route: IV, M emoria (ANES) 2 Drug form: l 14:22: INJ, ONCE, Stop date: 05/01/16 8:22:00 REHAB TRAINER phenylephri No Route: IV, Troy[place] ne (ANES) 2 Drug form: l 14:22: INJ, ONCE, Stop date: 05/01/16 8:22:00 REHAB TRAINER ceFAZolin No Route: IV, Me moria (ANES) 2 Drug form: l 14:11: INJ, ONCE, Stop date: 05/01/16 8:11:00 REHAB TRAINER ceFAZolin No Route: IV, Me moria (ANES) 2 Drug form: l 14:11: INJ, ONCE, Stop date: 05/01/16 8:11:00 REHAB TRAINER ceFAZolin 0 No Route: IV, Me moria (ANES) 2 Drug form: l 14:11: INJ, ONCE, Stop date: 05/01/16 8:11:00 REHAB TRAINER ceFAZolin 0 No Route: IV, Me moria (ANES) 2 Drug form: l 14:11: INJ, ONCE, Stop date: 05/01/16 8:11:00 REHAB TRAINER ceFAZolin 2017-0 No Route: IV, Me moria (ANES) 2 Drug form: l 14:11: INJ, ONCE, Stop date: 05/01/16 8:11:00 REHAB TRAINER LR 1000 mL No Route: IV, M emoria INJ (ANES) 2- Total l 13:35: Volume: [place] 00 1,000, Start date: 05/01/16 7:35:00 REHAB TRAINER, Stop date: 05/01/16 8:35:00 REHAB TRAINER LR 1000 mL No Route: IV, M emoria INJ (ANES) 2- Total l 13:35: Volume: [place] 00 1,000, Start date: 05/01/16 7:35:00 REHAB TRAINER, Stop date: 05/01/16 8:35:00 REHAB TRAINER LR 1000 mL No Route: IV, M emoria INJ (ANES) 2-06 Total l 13:35: Volume: Arthur 00 1,000, Start date: 05/01/16 7:35:00 REHAB TRAINER, Stop date: 05/01/16 8:35:00 REHAB TRAINER LR 1000 mL No Route: IV, Florence emoria INJ (ANES) 2-06 Total l 13:35: Volume: Arthur 00 1,000, Start date: 05/01/16 7:35:00 REHAB TRAINER, Stop date: 05/01/16 8:35:00 REHAB TRAINER LR 1000 mL No Route: IV, Florence emoria INJ (ANES) 2-06 Total l 13:35: Volume: Arthur 00 1,000, Start date: 05/01/16 7:35:00 REHAB TRAINER, Stop date: 05/01/16 8:35:00 REHAB TRAINER Calcium 2016-0 No 1,000 mL, Memor ia Chloride 2-06 Rate: 25 l 0.0014 12:57: ml/hr, Arthur MEQ/ML / 00 Infuse Potassium over: 40 Chloride hr, Route: 0.004 IV, Dosing MEQ/ML / Weight Sodium 74.091 kg, Chloride Total 0.103 Volume: MEQ/ML / 1,000, Sodium Start Lactate date: 0.028 05/01/16 MEQ/ML 6:57:00 Injectable REHAB TRAINER, Solution Duration: 30 day, Stop date: 05/31/16 6:56:00 REHAB TRAINER Calcium 2016-0 No 1,000 mL, Memor ia Chloride 2-06 Rate: 25 l 0.0014 12:57: ml/hr, [place] MEQ/ML / 00 Infuse Potassium over: 40 Chloride hr, Route: 0.004 IV, Dosing MEQ/ML / Weight Sodium 74.091 kg, Chloride Total 0.103 Volume: MEQ/ML / 1,000, Sodium Start Lactate date: 0.028 05/01/16 MEQ/ML 6:57:00 Injectable REHAB TRAINER, Solution Duration: 30 day, Stop date: 05/31/16 6:56:00 REHAB TRAINER Calcium 2016-0 No 1,000 mL, Memor ia Chloride 2-06 Rate: 25 l 0.0014 12:57: ml/hr, [place] MEQ/ML / 00 Infuse Potassium over: 40 Chloride hr, Route: 0.004 IV, Dosing MEQ/ML / Weight Sodium 74.091 kg, Chloride Total 0.103 Volume: MEQ/ML / 1,000, Sodium Start Lactate date: 0.028 17 MEQ/ML 6:57:00 Injectable REHAB TRAINER, Solution Duration: 30 day, Stop date: 05/31/16 6:56:00 REHAB TRAINER Calcium 2017-0 No 1,000 mL, Memor ia Chloride 2-06 Rate: 25 l 0.0014 12:57: ml/hr, Arthur MEQ/ML / 00 Infuse Potassium over: 40 Chloride hr, Route: 0.004 IV, Dosing MEQ/ML / Weight Sodium 74.091 kg, Chloride Total 0.103 Volume: MEQ/ML / 1,000, Sodium Start Lactate date: 0.028 17 MEQ/ML 6:57:00 Injectable REHAB TRAINER, Solution Duration: 30 day, Stop date: 05/31/16 6:56:00 REHAB TRAINER Calcium 2017-0 No 1,000 mL, Memor ia Chloride 2-06 Rate: 25 l 0.0014 12:57: ml/hr, Arthur MEQ/ML / 00 Infuse Potassium over: 40 Chloride hr, Route: 0.004 IV, Dosing MEQ/ML / Weight Sodium 74.091 kg, Chloride Total 0.103 Volume: MEQ/ML / 1,000, Sodium Start Lactate date: 0.028 17 MEQ/ML 6:57:00 Injectable REHAB TRAINER, Solution Duration: 30 day, Stop date: 05/31/16 6:56:00 REHAB TRAINER ceFAZolin No Notes: Memori a 2-06 Same as: l 12:00: Ancef Arthur 00 BD Normal No Notes: Memori a Saline 2-06 (Same as: l Flush 12:00: BD [place] 00 Posiflush) ceFAZolin No Notes: Memori a 2-06 Same as: l 12:00: Ancef Arthur 00 BD Normal 2016-0 No Notes: Memori a Saline 2-06 (Same as: l Flush 12:00: BD [place] 00 Posiflush) ceFAZolin No Notes: Memori a 2-06 Same as: l 12:00: Ancef [place] 00 BD Normal 0 No Notes: Memori a Saline 2-06 (Same as: l Flush 12:00: BD [place] Posiflush) ceFAZolin No Notes: Memori a 2 Same as: l 12:00: Ancef Arthur BD Normal No Notes: Memori a Saline 05-01 (Same as: l Flush 12:00: BD [place] Posiflush) ceFAZolin No Notes: Memori a 05-01 Same as: l 12:00: Ancef Rye BD Normal No Notes: [facility] a Saline 05-01 (Same as: l Flush 12:00: BD Rye Posiflush) Esomeprazol Yes 20 mg = 1 [...] l MG / 00:52: day, # 14 Rye Trimethopri 00 tab, 0 m 160 MG Refill(s) Oral Tablet [Bactrim] Sulfamethox 2015-03 Yes 1 tab, PO, Memoria azole 800 2-24 BID, X 7 l MG / 00:52: day, # 14 Arthur Trimethopri 00 tab, 0 m 160 MG Refill(s) Oral Tablet [Bactrim] Sulfamethox 2015-03 Yes 1 tab, PO, Memoria azole 800 2-24 BID, X 7 l MG / 00:52: day, # 14 Rye Trimethopri 00 tab, 0 m 160 MG Refill(s) Oral Tablet [Bactrim] Sulfamethox 2015-03 Yes 1 tab, PO, Memoria azole 800 2-24 BID, X 7 l MG / 00:52: day, # 14 Rye Trimethopri 00 tab, 0 m 160 MG Refill(s) Oral Tablet [Bactrim] Sulfamethox 2015-03 Yes 1 tab, PO, Memoria azole 800 2-24 BID, X 7 l MG / 00:52: day, # 14 Arthur Trimethopri 00 tab, 0 m 160 MG Refill(s) Oral Tablet [Bactrim] Motrin 2015-03 No 800 mg, Memoria 23 Route: PO, l 22:27: Drug form: Arthur 00 TAB, ONCE, Dosing Weight 72.727, kg, Priority: STAT, Start date: 03/17/16 16:27:00 REHAB TRAINER, Stop date: 03/17/16 16:27:00 REHAB TRAINER Sodium 2015-03 No 1,000 mL, Memori a Chloride 2-23 2,000 l 0.154 22:27: ml/hr, Arthur MEQ/ML 00 Infuse Injectable Over: 30 Solution minutes, Route: IV, ONCE, Priority: STAT, Dosing Weight 72.727 kg, Start date: 03/17/16 16:27:00 REHAB TRAINER, Duration: 1 doses or times, Stop date: 03/17/16 16:27:00 REHAB TRAINER Saline 2015-03 No Notes: [facility] Flush 0.9% 2-23 (Same as: l 22:27: BD Rye 00 Posiflush) Motrin 2015-03 No 800 mg, Memoria 2-23 Route: PO, l 22:27: Drug form: Arthur 00 TAB, ONCE, Dosing Weight 72.727, kg, Priority: STAT, Start date: 03/17/16 16:27:00 REHAB TRAINER, Stop date: 03/17/16 16:27:00 REHAB TRAINER Sodium 2015- No 1,000 mL, Memori a Chloride 2-23 2,000 l 0.154 22:27: ml/hr, Arthur MEQ/ML 00 Infuse Injectable Over: 30 Solution minutes, Route: IV, ONCE, Priority: STAT, Dosing Weight 72.727 kg, Start date: 03/17/16 16:27:00 REHAB TRAINER, Duration: 1 doses or times, Stop date: 03/17/16 16:27:00 REHAB TRAINER Saline 2015-03 No Notes: [facility] Flush 0.9% 2-23 (Same as: l 22:27: BD Rye 00 Posiflush) Motrin 2015-03 No 800 mg, Memoria 2-23 Route: PO, l 22:27: Drug form: Rye 00 TAB, ONCE, Dosing Weight 72.727, kg, Priority: STAT, Start date: 03/17/16 16:27:00 REHAB TRAINER, Stop date: 03/17/16 16:27:00 REHAB TRAINER Sodium 2015- No 1,000 mL, Memori a Chloride 2-23 2,000 l 0.154 22:27: ml/hr, Arthur MEQ/ML 00 Infuse Injectable Over: 30 Solution minutes, Route: IV, ONCE, Priority: STAT, Dosing Weight 72.727 kg, Start date: 03/17/16 16:27:00 REHAB TRAINER, Duration: 1 doses or times, Stop date: 03/17/16 16:27:00 REHAB TRAINER Saline 2015-03 No Notes: [facility] Flush 0.9% 2-23 (Same as: l 22:27: BD Rye 00 Posiflush) Motrin 2015-03 No 800 mg, Memoria 2-23 Route: PO, l 22:27: Drug form: Rye 00 TAB, ONCE, Dosing Weight 72.727, kg, Priority: STAT, Start date: 03/17/16 16:27:00 REHAB TRAINER, Stop date: 03/17/16 16:27:00 REHAB TRAINER Sodium 2015-03 No 1,000 mL, Memori a Chloride 2-23 2,000 l 0.154 22:27: ml/hr, Arthur MEQ/ML 00 Infuse Injectable Over: 30 Solution minutes, Route: IV, ONCE, Priority: STAT, Dosing Weight 72.727 kg, Start date: 03/17/16 16:27:00 REHAB TRAINER, Duration: 1 doses or times, Stop date: 03/17/16 16:27:00 REHAB TRAINER Saline 2015-03 No Notes: [facility] Flush 0.9% 2-23 (Same as: l 22:27: BD Arthur 00 Posiflush) Motrin 2015-03 No 800 mg, Memoria 2-23 Route: PO, l 22:27: Drug form: Arthur 00 TAB, ONCE, Dosing Weight 72.727, kg, Priority: STAT, Start date: 03/17/16 16:27:00 REHAB TRAINER, Stop date: 03/17/16 16:27:00 REHAB TRAINER Sodium 2015-03 No 1,000 mL, Memori a Chloride 2-23 2,000 l 0.154 22:27: ml/hr, Arthur MEQ/ML 00 Infuse Injectable Over: 30 Solution minutes, Route: IV, ONCE, Priority: STAT, Dosing Weight 72.727 kg, Start date: 03/17/16 16:27:00 REHAB TRAINER, Duration: 1 doses or times, Stop date: 03/17/16 16:27:00 REHAB TRAINER Saline 2015-03 No Notes: [facility]oria Flush 0.9% [...] exceed l #3 15:03: 4gm/day of Arthur 00 acetaminop hen. (Same as: Tylenol with Codeine # 3) cyclobenzap No Notes: Yamil brandi rine 5-10 (Same As: l 15:03: Flexeril) Arthur acetaminoph No Notes: Do M emoria en-codeine 5-10 not exceed l #3 15:03: 4gm/day of Rye 00 acetaminop hen. (Same as: Tylenol with Codeine # 3) cyclobenzap No Notes: Yamil brandi rine 5-10 (Same As: l 15:03: Flexeril) Arthur acetaminoph No Notes: Do M emoria en-codeine 5-10 not exceed l #3 15:03: 4gm/day of Arthur 00 acetaminop hen. (Same as: Tylenol with Codeine # 3) cyclobenzap No Notes: Yamil brandi rine 5-10 (Same As: l 15:03: Flexeril) Rye acetaminoph No Notes: Do M emoria en-codeine 5-10 not exceed l #3 15:03: 4gm/day of Arthur 00 acetaminop hen. (Same as: Tylenol with Codeine # 3) cyclobenzap No Notes: Yamil brandi rine 5-10 (Same As: l 15:03: Flexeril) Rye acetaminoph No Notes: Do M emoria en-codeine 5-10 not exceed l #3 15:03: 4gm/day of Rye 00 acetaminop hen. (Same as: Tylenol with Codeine # 3) cyclobenzap 0 No Notes: Yamil brandi rine 5-10 (Same As: l 15:03: Flexeril) Arthur 00 Aspirin 81 2016 Yes 81 mg = 1 Me moria MG Enteric 1-14 tab, PO, l Coated 22:58: Daily, # Arthur Tablet 00 90 tab, 3 Refill(s), other Aspirin 81 2016 Yes 81 mg = 1 Me moria MG Enteric 1-14 tab, PO, l Coated 22:58: Daily, # Arthur Tablet 00 90 tab, 3 Refill(s), other Aspirin 81 [id number] Yes 81 mg = 1 Me moria MG Enteric 1-14 tab, PO, l Coated 22:58: Daily, # Rye Tablet 00 90 tab, 3 Refill(s), other Aspirin 81 2016 Yes 81 mg = 1 Me moria MG Enteric 1-14 tab, PO, l Coated 22:58: Daily, # Rye Tablet 00 90 tab, 3 Refill(s), other Aspirin 81 [id number] Yes 81 mg = 1 Me moria MG Enteric 1-14 tab, PO, l Coated 22:58: Daily, # Rye Tablet 00 90 tab, 3 Refill(s), other Aspirin 325 No Notes: (Do Memoria MG Enteric 1-14 Not Crush) l Coated 15:00: Do not Arthur Tablet 00 crush or chew. Aspirin 325 No Notes: (Do Memoria MG Enteric 1-14 Not Crush) l Coated 15:00: Do not Rye Tablet 00 crush or chew. Aspirin 325 0 No Notes: (Do Memoria MG Enteric 1-14 Not Crush) l Coated 15:00: Do not Arthur Tablet 00 crush or chew. Aspirin 325 0 No Notes: (Do Memoria MG Enteric 1-14 Not Crush) l Coated 15:00: Do not Arthur Tablet 00 crush or chew. Aspirin 325 No Notes: (Do Memoria MG Enteric 1-14 Not Crush) l Coated 15:00: Do not Arthur Tablet 00 crush or chew. Saline 2016-0 No Notes: Memoria Flush 0.9% 1-14 (Same as: l 03:00: BD Rye 00 Posiflush) Saline No Notes: Memoria Flush 0.9% 1-14 (Same as: l 03:00: BD Rye 00 Posiflush) Saline No Notes: Memoria Flush 0.9% 1-14 (Same as: l 03:00: BD Rye 00 Posiflush) Saline No Notes: Memoria Flush 0.9% 1-14 (Same as: l 03:00: BD Arthur 00 Posiflush) Saline No Notes: Memoria Flush 0.9% 1-14 (Same as: l 03:00: BD Arthur 00 Posiflush) Sodium 2016-0 No 1,000 mL, Memori a Chloride 1-14 Rate: 125 l 0.154 01:28: ml/hr, Rye MEQ/ML 00 Infuse Injectable over: 8 Solution [...] 30 day, Stop date: 05/07/15 19:27:00 Sodium 2015- No 1,000 mL, Memori a Chloride 1-14 [...] (Same as: l 00:00: Lopressor) Arthur 00 metoprolol No Notes: Memor ia tartrate 1-14 (Same as: l 00:00: Lopressor) Rye 00 metoprolol No Notes: Memor ia tartrate 1-14 (Same as: l 00:00: Lopressor) Rye 00 metoprolol No Notes: Memor ia tartrate 1-14 (Same as: l 00:00: Lopressor) Rye 00 Saline No Notes: Memoria Flush 0.9% 1-13 (Same as: l 20:15: BD Rye 00 Posiflush) Nitroglycer No Notes: Yamil brandi in - (Same l 20:15: as:Nitroqu Arthur 00 ick, Nitrostat) "Do Not Crush" Sublingual tablet Saline No Notes: Memoria Flush 0.9% 1-13 (Same as: l 20:15: BD Rye 00 Posiflush) Nitroglycer No Notes: Yamil brandi in 1- (Same l 20:15: as:Nitroqu Rye 00 ick, Nitrostat) "Do Not Crush" Sublingual tablet Saline No Notes: Memoria Flush 0.9% 1-13 (Same as: l 20:15: BD Arthur 00 Posiflush) Nitroglycer 0 No Notes: Yamil brandi in 04-07 (Same l 20:15: as:Nitroqu Arthur 00 ick, Nitrostat) "Do Not Crush" Sublingual tablet Saline No Notes: Memoria Flush 0.9% 04-07 (Same as: l 20:15: BD Arthur 00 Posiflush) Nitroglycer No Notes: Yamil brandi in 04-07 (Same l 20:15: as:Nitroqu Arthur 00 ick, Nitrostat) "Do Not Crush" Sublingual tablet Saline 0 No Notes: Memoria Flush 0.9% 04-07 (Same as: l 20:15: BD Rye 00 Posiflush) Nitroglycer No Notes: Yamil brandi in 04-07 (Same l 20:15: as:Nitroqu Arthur 00 ick, Nitrostat) "Do Not Crush" Sublingual tablet Sodium 2015-0 No 1,000 mL, Memori a Chloride 1-13 1,000 l 0.154 15:37: ml/hr, Rye MEQ/ML 00 Infuse Injectable Over: 1 Solution hr, Route: IV, ONCE, Priority: STAT, Dosing Weight 80.455 kg, Start date: 04/07/15 9:37:00, Duration: 1 doses or times, Stop date: 04/07/15 9:37:00 Sodium 2016-0 No 1,000 mL, Memori a Chloride 1-13 1,000 l 0.154 15:37: ml/hr, Rye MEQ/ML 00 Infuse Injectable Over: 1 Solution hr, Route: IV, ONCE, Priority: STAT, Dosing Weight 80.455 kg, Start date: 04/07/15 9:37:00, Duration: 1 doses or times, Stop date: 04/07/15 9:37:00 Sodium 2016-0 No 1,000 mL, Memori a Chloride 1-13 1,000 l 0.154 15:37: ml/hr, Rye MEQ/ML 00 Infuse Injectable Over: 1 Solution hr, Route: IV, ONCE, Priority: STAT, Dosing Weight 80.455 kg, Start date: 04/07/15 9:37:00, Duration: 1 doses or times, Stop date: 04/07/15 9:37:00 Sodium 2016-0 No 1,000 mL, Memori a Chloride 1-13 1,000 l 0.154 15:37: ml/hr, Rye MEQ/ML 00 Infuse Injectable Over: 1 Solution hr, Route: IV, ONCE, Priority: STAT, Dosing Weight 80.455 kg, Start date: 04/07/15 9:37:00, Duration: 1 doses or times, Stop date: 04/07/15 9:37:00 Sodium 2016-0 No 1,000 mL, Memori a Chloride 1-13 1,000 l 0.154 15:37: ml/hr, Rye MEQ/ML 00 Infuse Injectable Over: 1 Solution [...] 0.9% 1-13 (Same as: l 13:23: BD Rye 00 Posiflush) Aspirin No Notes: Memoria 1-13 Take with l 13:23: food. Arthur 00 Saline No Notes: Memoria Flush 0.9% 1-13 (Same as: l 13:23: BD Arthur 00 Posiflush) Aspirin No Notes: Memoria 1-13 Take with l 13:23: food. Arthur 00 Saline No Notes: Memoria Flush 0.9% 1-13 (Same as: l 13:23: BD Rye 00 Posiflush) Aspirin No Notes: Memoria 1-13 Take with l 13:23: food. Arthur 00 Saline No Notes: Memoria Flush 0.9% 1-13 (Same as: l 13:23: BD Arthur 00 Posiflush) Aspirin No Notes: Memoria 1-13 Take with l 13:23: food. Rye 00 Saline No Notes: Memoria Flush 0.9% 1-13 (Same as: l 13:23: BD Rye 00 Posiflush) Miralax No Notes: Memoria 8-14 Dissolve l 23:38: in 8 oz of Rye 00 water or juice. (Same as: Miralax) Miralax No Notes: Memoria 8-14 Dissolve l 23:38: in 8 oz of Rye 00 water or juice. (Same as: Miralax) Miralax No Notes: Memoria 8-14 Dissolve l 23:38: in 8 oz of Arthur 00 water or juice. (Same as: Miralax) Miralax No Notes: Memoria 8-14 Dissolve l 23:38: in 8 oz of Rye 00 water or juice. (Same as: Miralax) Miralax No Notes: Memoria 8-14 Dissolve l 23:38: in 8 oz of Arthur 00 water or juice. (Same as: Miralax) Tylenol No Notes: Do Memor ia 8-14 not exceed l 23:35: 4 gm/day. Rye 00 (Same as: Tylenol) Tylenol No Notes: Do [...] l MG / 15:31: day, # 10 Rye Trimethopri 00 tab, 0 m 160 MG Refill(s) Oral Tablet [Bactrim] Sulfamethox Yes 1 tab, PO, Memoria azole 800 8-14 BID, X 5 l MG / 15:31: day, # 10 Arthur Trimethopri 00 tab, 0 m 160 MG Refill(s) Oral Tablet [Bactrim] Sulfamethox Yes 1 tab, PO, Memoria azole 800 8-14 BID, X 5 l MG / 15:31: day, # 10 Rye Trimethopri 00 tab, 0 m 160 MG [...] 8-14 Give with l 14:50: food. "Do Not Crush" ferrous No Notes: Memoria sulfate 8-14 Give with l 14:50: food. "Do Not Crush" ferrous No Notes: Memoria sulfate 8-14 Give with l 14:50: food. "Do 00 Not Crush" ferrous No Notes: Memoria sulfate 8-14 Give with l 14:50: food. "Do 00 Not Crush" ferrous No Notes: Memoria sulfate 8-14 Give with l 14:50: food. "Do Not Crush" nitroglycer No Notes: Yamil brandi in 0.4 mg - (Same l sublingual 01:34: as:Nitroqu H ermann [...] 8-14 mL, Route: l 01:34: IVP, Drug Rye 00 form: INJ, PRN, PRN Bradycardi a, [...] 20:33:00 Saline No Notes: Memoria Flush 0.9% - Same as: l 01:11: BD Arthur 00 Posiflush Sterile Saline No Notes: Memoria Flush 0.9% 8-14 Same as: l 01:11: BD Posiflush Sterile Saline No Notes: Memoria Flush 0.9% 8-14 Same as: l 01:11: BD Posiflush Sterile Saline No Notes: Memoria Flush 0.9% 8-14 Same as: l 01:11: BD Posiflush Sterile Saline No Notes: Memoria Flush 0.9% 8-14 Same as: l 01:11: BD Posiflush Sterile Sulfamethox No Notes: One Memoria [...] DS tablet l MG / 22:00: = Rye Trimethopri 00 trimethopr m 160 MG im 160mg + Oral Tablet sulfametho [Bactrim] xazole 800 mg Dose based on trimethopr im component On empty stomach with a glass of water. 1 hr before meals (Same As: Bactrim DS, Septra DS) Sulfamethox No Notes: One Memoria azole 800 8-13 DS tablet l MG / 22:00: = Rye Trimethopri 00 trimethopr m 160 MG im [...] Ceftriaxone 2015-0 No 1 gm, Memor ia 11-05 Route: l 20:52: IVPB, Drug Rye 00 form: PDR/INJ, ONCE, Dosing Weight 71.364, kg, Priority: STAT, Start date: 11/05/14 15:52:00, Stop date: 11/05/14 15:52:00 Ceftriaxone 2015-0 No 1 gm, Memor ia 11-05 Route: l 20:52: IVPB, Drug Arthur 00 form: PDR/INJ, ONCE, Dosing Weight 71.364, kg, Priority: STAT, Start date: 11/05/14 15:52:00, Stop date: 11/05/14 15:52:00 Ceftriaxone 2014-0 No 1 gm, Memor ia 11-05 Route: l 20:52: IVPB, Drug Rye 00 form: PDR/INJ, ONCE, Dosing Weight 71.364, kg, Priority: STAT, Start date: 11/05/14 15:52:00, Stop date: 11/05/14 15:52:00 Ceftriaxone 2015-0 No 1 gm, Memor ia 11-05 Route: l 20:52: IVPB, Drug Arthur 00 form: PDR/INJ, ONCE, Dosing Weight 71.364, kg, Priority: STAT, Start date: 11/05/14 15:52:00, Stop date: 11/05/14 15:52:00 Ceftriaxone 2014-0 No 1 gm, Memor ia 11-05 Route: l 20:52: IVPB, Drug Arthur 00 form: PDR/INJ, ONCE, Dosing Weight 71.364, kg, Priority: STAT, Start date: 11/05/14 15:52:00, Stop date: 11/05/14 15:52:00 Ketorolac 2014-0 No 30 mg, Memori a 11-05 Route: l 20:39: IVP, Drug Rye 00 form: INJ, ONCE, Dosing Weight 71.364, kg, Priority: STAT, Start date: 11/05/14 15:39:00, Stop date: 11/05/14 15:39:00 Ketorolac 2015-0 No 30 mg, Memori a 8-13 Route: l 20:39: IVP, Drug Rye 00 form: INJ, ONCE, Dosing Weight 71.364, kg, Priority: STAT, Start date: 11/05/14 15:39:00, Stop date: 11/05/14 15:39:00 Ketorolac 2015-0 No 30 mg, Memori a 8-13 Route: l 20:39: IVP, Drug Arthur 00 form: INJ, ONCE, Dosing Weight 71.364, kg, Priority: STAT, Start date: 11/05/14 15:39:00, Stop date: 11/05/14 15:39:00 Ketorolac 2015-0 No 30 mg, Memori a 8-13 Route: l 20:39: IVP, Drug Arthur 00 form: INJ, ONCE, Dosing Weight 71.364, kg, Priority: STAT, Start date: 11/05/14 15:39:00, Stop date: 11/05/14 15:39:00 Ketorolac 2015-0 No 30 mg, Memori a 8-13 Route: l 20:39: IVP, Drug Rye 00 form: INJ, ONCE, Dosing Weight 71.364, kg, Priority: STAT, Start date: 11/05/14 15:39:00, Stop date: 11/05/14 15:39:00 Morphine 2015-0 No 2 mg, Memoria 8- Route: l 20:20: IVP, Drug Arthur 00 form: INJ, ONCE, Dosing Weight 71.364, kg, Priority: STAT, Start date: 11/05/14 15:20:00, Stop date: 11/05/14 15:20:00 Morphine 2015-0 No 2 mg, Memoria 8-13 Route: l 20:20: IVP, Drug Arthur 00 form: INJ, ONCE, Dosing Weight 71.364, kg, Priority: STAT, Start date: 11/05/14 15:20:00, Stop date: 11/05/14 15:20:00 Morphine 2015-0 No 2 mg, Memoria 8-13 Route: l 20:20: IVP, Drug Rye 00 form: INJ, ONCE, Dosing Weight 71.364, kg, Priority: STAT, Start date: 11/05/14 15:20:00, Stop date: 11/05/14 15:20:00 Morphine 2014-0 No 2 mg, Memoria 8 Route: l 20:20: IVP, Drug Arthur 00 form: INJ, ONCE, Dosing Weight 71.364, kg, Priority: STAT, Start date: 11/05/14 15:20:00, Stop date: 11/05/14 15:20:00 Morphine 2015-0 No 2 mg, Memoria 8 Route: l 20:20: IVP, Drug Rye 00 form: INJ, ONCE, Dosing Weight 71.364, kg, Priority: STAT, Start date: 11/05/14 15:20:00, Stop date: 11/05/14 15:20:00 Aspirin 2014-0 No 324 mg, Memoria 8 Route: PO, l 19:58: ONCE, Dosing Weight 71.364, kg, Priority: STAT, Start date: 11/05/14 14:58:00, Stop date: 11/05/14 14:58:00 Saline 2014-0 No Notes: Memoria Flush 0.9% 11-05 Same as: l 19:58: BD Rye Posiflush Sterile Aspirin 2014-0 No 324 mg, Memoria 11-05 Route: PO, l 19:58: ONCE, Dosing Weight 71.364, kg, Priority: STAT, Start date: 11/05/14 14:58:00, Stop date: 11/05/14 14:58:00 Saline 2014-0 No Notes: Memoria Flush 0.9% 11-05 Same as: l 19:58: BD Arthur 00 Posiflush Sterile Aspirin 2014-0 No 324 mg, Memoria 8 Route: PO, l 19:58: ONCE, Rye 00 Dosing Weight 71.364, kg, Priority: STAT, Start date: 11/05/14 14:58:00, Stop date: 11/05/14 14:58:00 Saline 2014-0 No Notes: Memoria Flush 0.9% - Same as: l 19:58: BD Arthur 00 Posiflush Sterile Aspirin No 324 mg, Memoria 8 Route: PO, l 19:58: ONCE, Dosing Weight 71.364, kg, Priority: STAT, Start date: 11/05/14 14:58:00, Stop date: 11/05/14 14:58:00 Saline No Notes: Memoria Flush 0.9% 11-05 Same as: l 19:58: BD Posiflush Sterile Aspirin No 324 mg, Memoria 11-05 Route: PO, l 19:58: ONCE, Dosing Weight 71.364, kg, Priority: STAT, Start date: 11/05/14 14:58:00, Stop date: 11/05/14 14:58:00 Saline No Notes: Memoria Flush 0.9% 11-05 Same as: l 19:58: BD Posiflush Sterile ferrous Yes 325 mg = [...] 2 tab, Memoria en 300 MG / 811 PO, Q6H, l Codeine 18:24: PRN Pain, [...] tab, Yamil brandi en 300 MG / 811 Route: PO, l Codeine 15:14: Drug Form: Herm stevie Phosphate 00 TAB, 30 MG Oral Dosing Tablet Weight 77, [Tylenol kg, ONCE, with STAT, Codeine #3] Start date: 11/03/14 10:14:00, Stop date: 11/03/14 10:14:00 Acetaminoph No 1 tab, Yamil brandi en 300 MG / 811 Route: PO, l Codeine 15:14: Drug Form: Herm stevie Phosphate 00 TAB, 30 MG Oral Dosing Tablet Weight 77, [Tylenol kg, ONCE, with STAT, Codeine #3] Start date: 11/03/14 10:14:00, Stop date: 11/03/14 10:14:00 Acetaminoph No 1 tab, Yamil brandi en 300 MG / 811 Route: PO, l Codeine 15:14: Drug Form: [...] brandi 8-11 G.I. l 13:51: Cocktail = Rye 00 antacid with simethicon e 22.5 mL - lidocaine viscous 7.5 mL Morphine No Notes: Memoria 8-11 (Same l 13:51: as:MORPhin Rye 00 e Sulfate) GI cocktail No Notes: Yamil brandi 8-11 G.I. l 13:51: Cocktail = Arthur 00 antacid with simethicon e 22.5 mL - lidocaine viscous 7.5 mL Morphine No Notes: Memoria 8-11 (Same l 13:51: as:MORPhin Rye 00 e Sulfate) GI cocktail No Notes: Yamil brandi 8-11 G.I. l 13:51: Cocktail = Arthur 00 antacid with simethicon e 22.5 mL - lidocaine viscous 7.5 mL Morphine No Notes: Memoria 8-11 (Same l 13:51: as:MORPhin Rye 00 e Sulfate) GI cocktail No Notes: Yamil brandi 8-11 G.I. l 13:51: Cocktail = antacid with simethicon e 22.5 mL - lidocaine viscous 7.5 mL Morphine No Notes: Memoria 8-11 (Same l 13:51: as:MORPhin Arthur 00 e Sulfate) Aspirin No Notes: Memoria 8-11 Take with l 13:50: food. Saline No Notes: Memoria Flush 0.9% 8-11 (Same as: l 13:50: BD Arthur Posiflush) Aspirin No Notes: Memoria 8-11 Take with l 13:50: food. Saline No Notes: Memoria Flush 0.9% 8-11 (Same as: l 13:50: BD Rye Posiflush) Aspirin No Notes: Memoria 8-11 Take with l 13:50: food. Arthur 00 Saline No Notes: Memoria Flush 0.9% 8-11 (Same as: l 13:50: BD Rye 00 Posiflush) Aspirin No Notes: Memoria 8-11 Take with l 13:50: food. Saline No Notes: Memoria Flush 0.9% 8-11 (Same as: l 13:50: BD Arthur Posiflush) Aspirin No Notes: Memoria 8-11 Take with l 13:50: food. Saline No Notes: Memoria Flush 0.9% 8-11 (Same as: l 13:50: BD Arthur Posiflush) ibuprofen 2012-03 Yes Spencer 600 mg = 1 Me moria 600 mg oral 2-14 Fayrweathe tab, PO, l tablet 00:41: r Q6H, as Arthur 00 needed for fever, take with food, # 30 tab, 0 Refill(s)t emily with food ibuprofen 2012-03 Yes Spencer 600 mg = 1 Me moria 600 mg oral 2-14 Fayrweathe tab, PO, l tablet 00:41: r Q6H, as Rye 00 needed for fever, take with food, [...] PO, l tablet 00:41: r Q6H, as Rye 00 needed for fever, take with food, # 30 tab, 0 Refill(s)t emily with food Tessalon 2012-03 Yes Spencer 100 [...] tab, PO, l tablet, 00:40: r TID, Rye disintegrat 00 Nausea / ing Vomiting, Dissolve [...] tab, PO, l tablet, 00:40: r TID, Rye disintegrat 00 Nausea / ing Vomiting, Dissolve [...] tab, PO, l tablet, 00:40: r TID, Rye disintegrat 00 Nausea / ing Vomiting, Dissolve tab under tongue, # 10 tab, 0 Refill(s)D issolve tab under tongue Tessalon 2012-03 Yes Specner 100 mg = 1 Mem oria Perles [...] Fayrweathe tab, l 00:19: r Route: PO, Rye 00 Drug form: TAB, ONCE, Dosing Weight 72.727, kg, Priority: STAT, Start date: 03/07/13 18:19:00, Stop date: 03/07/13 18:19:00(S mirta as: Motrin) "Do Not Crush" Take with food. ibuprofen 2012-03 No Spencer 600 mg, 1 Mem oria 2-14 Fayrweathe tab, l 00:19: r Route: PO, Rye 00 Drug form: TAB, ONCE, Dosing Weight [...] Fayrweathe tab, l 00:19: r Route: PO, Rye 00 Drug form: TAB, ONCE, Dosing Weight 72.727, kg, Priority: STAT, Start date: 03/07/13 18:19:00, Stop date: 03/07/13 18:19:00(S mirta as: Motrin) "Do Not Crush" Take with food. Tylenol 2012-03 No Spencer 975 mg, 3 Memor ia -13 Fayrweathe tab, l 23:29: r Route: PO, Rye 00 Drug form: TAB, ONCE, Dosing Weight [...] Fayrweathe tab, l 23:29: r Route: PO, Rye 00 Drug form: TAB, ONCE, Dosing Weight [...] PO, l mg oral 17:57: er Daily, Rye tablet 00 TAKE 2 TABLETS ON DAY 1; TAKE 1 TABLET ON DAYS 2 - 5, # 1 Pack, 0 Refill(s)T EMILY 2 TABLETS ON DAY 1; TAKE 1 TABLET ON DAYS 2 - 5 Naprosyn 2012-03 Yes Carol A 500 mg = 1 Memoria 500 mg oral 2-13 Poffinbarg tab, PO, l tablet 17:57: er BID, for Rye 00 pain, # 20 tab, 0 Refill(s) [...] PO, l tablet 17:57: er BID, for Rye 00 pain, # 20 tab, 0 Refill(s) [...] PO, l tablet 17:57: er BID, for Rye 00 pain, # 20 tab, 0 Refill(s) Zofran ODT 2012-03 Yes Carol A 4 mg = 1 Memoria 4 mg oral 2-13 Poffinbarg tab, PO, l tablet, 17:57: er BID, Rye disintegrat 00 Nausea and ing Vomiting, Dissolve tab under tongue, # 10 tab, 0 Refill(s)D issolve tab under tongue Zithromax 2012-03 Yes Carol A 250 mg = 1 Memoria Z-Onel 250 2-13 Poffinbarg tab, PO, l mg oral 17:57: er Daily, Rye tablet 00 TAKE 2 TABLETS ON DAY [...] 1 [facility] 2 - [facility] Yes Carol A 500 mg = 1 Memoria 500 mg oral 2-13 Poffinbarg tab, PO, l tablet 17:57: er BID, for Rye 00 pain, # 20 tab, 0 Refill(s) [...] date: 03/07/13 9:37:00, Stop date: 03/07/13 9:37:00(Sa de as:MORPhin e Sulfate) Zofran 2012-03 No Carol A 4 mg, 2 Mem oria 2-13 Poffin[place] mL, Route: l 15:37: er IVP, Drug Rye 00 form: INJ, ONCE, Dosing Weight 72.727, kg, Priority: STAT, Start date: 03/07/13 9:37:00, Stop date: 03/07/13 9:37:00([facility] as: Zofran) acetaminoph 2012-03 No Carol A 650 mg, 2 Memoria en 2-13 Poffinbarg tab, l 15:37: er Route: PO, Rye 00 Drug form: TAB, ONCE, Dosing Weight 72.727, kg, Start date: 03/07/13 9:37:00, Stop date: 03/07/13 9:37:00Do not exceed 4 gm/day. (Same as: Tylenol) ceftriaxone 2012-03 No Carol A 1 gm, Memoria + Sodium 2- Poffinbarg Route: l Chloride 15:37: er IVPB, Drug Her szymanski 0.9% IV 100 00 form: mL PDR/INJ, ONCE, Dosing Weight 72.727, kg, Priority: STAT, Start date: 03/07/13 9:37:00, Stop date: 03/07/13 9:37:00([facility] As: Rocephin). Use with 100ml NS mini-bag PLUS and infuse over 30 min Sodium 2012-03 No Carol A 1,000 mL, M emoria Chloride 2- Poffin[place]arg Rate: l 0.9% 15:37: er 1,000 Rye (Bolus) IV 00 ml/hr, 1,000 mL Infuse over: 1 hr, Route: IV, Dosing Weight 72.727 kg, Total Volume: 1,000, Priority: STAT, Start date: 03/07/13 9:37:00, Duration: 1 doses or times, Stop date: 03/07/13 10:36:00 Saline 2012-03 No Carol A 5 mL, Memor ia Flush 0.9% 2- Poffinbarg Route: l 15:37: er IVP, Drug Arthur 00 Form: INJ, Dosing Weight 72.727, kg, PRN, PRN Line Flush, Start date: 03/07/13 9:37:00, Duration: 30 day, Stop date: 04/06/13 9:36:00([facility] as: BD Posiflush) morphine 2012-03 [...] Start date: 03/07/13 9:37:00, Stop date: 03/07/13 9:37:00([facility] as: Zofran) acetaminoph 2012-03 No [...] Poffin[place]arg Rate: l 0.9% 15:37: er 1,000 Rye (Bolus) IV 00 ml/hr, 1,000 mL Infuse over: 1 hr, Route: IV, Dosing Weight 72.727 kg, Total Volume: 1,000, Priority: STAT, Start date: 03/07/13 9:37:00, Duration: 1 doses or times, Stop date: 03/07/13 10:36:00 Saline 2012-03 No Carol A 5 mL, Memor ia Flush 0.9% 2-13 P[place] Route: l 15:37: er IVP, Drug Rye 00 Form: INJ, Dosing Weight 72.727, kg, PRN, PRN Line Flush, Start date: 03/07/13 9:37:00, Duration: 30 day, Stop date: 04/06/13 9:36:00( me as: BD Posiflush) morphine 2012-03 No Carol A 4 mg, 1 M emoria Sulfate 2-13 Poffinbarg mL, Route: l 15:37: er IVP, Drug Rye 00 form: INJ, ONCE, Dosing Weight 72.727, kg, Priority: STAT, Start date: 03/07/13 9:37:00, Stop date: 03/07/13 9:37:00( me as:MORPhin e Sulfate) Zofran 2012-03 No Carol A 4 mg, 2 Mem oria 2-13 P[place] mL, Route: l 15:37: er IVP, Drug Arthur 00 form: INJ, ONCE, Dosing Weight 72.727, kg, Priority: STAT, Start date: 03/07/13 9:37:00, Stop date: 03/07/13 9:37:00([facility] as: Zofran) acetaminoph 2012-03 No [...] Poffin[place]arg Rate: l 0.9% 15:37: er 1,000 Rye (Bolus) IV 00 ml/hr, 1,000 mL Infuse over: 1 hr, Route: IV, Dosing Weight 72.727 kg, Total Volume: 1,000, Priority: STAT, Start date: 03/07/13 9:37:00, Duration: 1 doses or times, Stop date: 03/07/13 10:36:00 Saline 2012-03 No Carol A 5 mL, Memor ia Flush 0.9% 2-13 [place] Route: l 15:37: er IVP, Drug Rye 00 Form: INJ, Dosing Weight 72.727, kg, [...] mL, Route: l 15:37: er IVP, Drug Rye 00 form: INJ, ONCE, Dosing Weight 72.727, [...] Start date: 03/07/13 9:37:00, Stop date: 03/07/13 9:37:00([facility] As: Rocephin). Use with 100ml NS mini-bag PLUS and infuse over 30 min Sodium 2012-03 No Carol A 1,000 mL, M emoria Chloride 2-13 [place] Rate: l 0.9% 15:37: er 1,000 Rye (Bolus) IV 00 ml/hr, 1,000 mL Infuse over: 1 hr, Route: IV, Dosing Weight 72.727 kg, Total Volume: 1,000, Priority: STAT, Start date: 03/07/13 9:37:00, Duration: 1 doses or times, Stop date: 03/07/13 10:36:00 Saline 2012-03 No Carol A 5 mL, Memor ia Flush 0.9% 2-13 [place] Route: l 15:37: er IVP, Drug Rye 00 Form: INJ, Dosing Weight 72.727, kg, PRN, PRN Line Flush, Start date: 03/07/13 9:37:00, Duration: 30 day, Stop date: 04/06/13 9:36:00([facility] as: BD Posiflush) morphine 2012-03 [...] mL, Route: l 15:37: er IVP, Drug Rye 00 form: INJ, ONCE, Dosing Weight 72.727, kg, Priority: STAT, Start date: 03/07/13 9:37:00, Stop date: 03/07/13 9:37:00([facility] as: Zofran) acetaminoph 2012-03 No [...] Start date: 03/07/13 9:37:00, Stop date: 03/07/13 9:37:00([facility] As: Rocephin). Use with 100ml NS mini-bag PLUS and infuse over 30 min Sodium 2012-03 No Carol A 1,000 mL, M emoria Chloride 2-13 [place] Rate: l 0.9% 15:37: er 1,000 Rye (Bolus) IV 00 ml/hr, 1,000 mL Infuse over: 1 hr, Route: IV, Dosing Weight 72.727 kg, Total Volume: 1,000, Priority: STAT, Start date: 03/07/13 9:37:00, Duration: 1 doses or times, Stop date: 03/07/13 10:36:00 Saline 2012-03 No Carol A 5 mL, Memor ia Flush 0.9% 2-13 [place] Route: l 15:37: er IVP, Drug Rye 00 Form: INJ, Dosing Weight 72.727, kg, PRN, PRN Line Flush, Start date: 03/07/13 9:37:00, Duration: 30 day, Stop date: 04/06/13 9:36:00([facility] as: BD Posiflush) acetaminoph 2012-03 [...] acetaminoph 2012-03 No Nash 1,000 mg, M una en 05-08 Binu 2 tab, l 15:19: [...] tab, Substituti on Allowed, TAB amoxicillin Yes Ar Blood 500 mg, 1 Memoria 500 mg oral 1-10 Eliezer II tab, PO, l tablet 08:09: TID, 30 Rye 15 tab, Substituti on Allowed, TAB amoxicillin Yes Ar Blood 500 mg, 1 Memoria 500 mg oral 1-10 Eliezer II tab, PO, l tablet 08:09: TID, 30 Rye 15 tab, Substituti on Allowed, TAB Vital Signs Vital Name Observation Time Observation Value Comments Source Systolic blood 2021-10-18 18:30:00 135 mm[Hg] [facility] Diastolic blood 2021-10-18 18:30:00 92 mm[facility]Hg[facility] 2021-10-18 18:30:00 50 /min [facility] Respiratory rate 2021-10-18 18:30:00 13 /min [facility] Oxygen saturation in 2021-10-18 18:30:00 100 /min [place] [facility] Arterial blood by [facility] Pulse oximetry Branch Body temperature 2021-10-18 15:30:[address] [facility] Body height 2021-10-18 15:30:00 165.1 cm [facility] Body weight 2021-10-18 15:30:00 88.451 kg [facility] BMI 2021-10-18 15:30:00 32.45 kg/m2 [facility] Systolic blood 2021-09-24 18:30:00 112 mm[facility]Hg[facility] 2021-09-24 18:30:00 79 mm[facility]Hg[facility] 2021-09-24 18:30:00 60 /min [facility] Respiratory rate 2021-09-24 18:30:00 12 /min [facility] in 2021-09-24 18:30:00 100 /min [place] [facility] by [place] [facility] Body temperature 2021-09-24 16:20:00 36.56 Kristy [facility] [place] [facility] Body height 2021-09-24 16:20:00 165.1 cm [facility] Body weight 2021-09-24 16:20:00 88.451 kg [facility] BMI 2021-09-24 16:20:00 32.45 kg/m2 [facility] [place] [facility] Systolic blood 2021-04-10 21:57:00 132 mm[Hg] [facility] [place] [facility] Diastolic blood 2021-04-10 21:57:00 92 mm[Hg] Unive rsity of pressure [facility] Heart rate 2021-04-10 21:57:00 71 /min [facility] [place] [facility] [place] Respiratory rate 2021-04-10 21:57:00 16 /min [facility] Oxygen saturation in 2021-04-10 21:57:00 100 /min University Arterial blood by [facility] Pulse oximetry Branch Body temperature 2021-04-10 18:40:00 37.11 Kristy [facility] [place] [facility] [place] Body height 2021-04-10 18:40:00 162.6 cm [facility] [place] [facility] Body weight 2021-04-10 18:40:00 90.719 kg [facility] [place] [facility] BMI 2021-04-10 18:40:00 34.33 kg/m2 [facility] [place] [facility] Systolic blood 2021-04-03 07:03:00 149 mm[Hg] [facility] [place] [facility] Diastolic blood 2021-04-03 07:03:00 97 mm[Hg] [facility] [place] [facility] Heart rate 2021-04-03 07:03:00 82 /min [facility] [place] [facility] Body temperature 2021-04-03 07:03:00 37.11 Kristy [facility] Respiratory rate 2021-04-03 07:03:00 18 /min [facility] [place] [facility] Body height 2021-04-03 07:03:00 162.6 cm [facility] [place] [facility] Body weight 2021-04-03 07:03:00 90.719 kg [facility] [place] [facility] BMI 2021-04-03 07:03:00 34.33 kg/m2 [facility] [place] [facility] Oxygen saturation in 2021-04-03 07:03:00 98 /min [facility] of Arterial blood by [facility] Pulse oximetry Branch Systolic blood 2020-09-11 04:00:00 135 mm[Hg] [facility] [place] [facility] Diastolic blood 2020-09-11 04:00:00 70 mm[Hg] [facility] [place] [facility] Heart rate 2020-09-11 04:00:00 61 /min [facility] [place] [facility] Respiratory rate 2020-09-11 04:00:00 12 /min [facility] Oxygen saturation in 2020-09-11 04:00:00 99 /min [facility] Arterial blood by [facility] Pulse oximetry Branch Body temperature 2020-09-11 00:50:00 37.06 Kristy [facility] [place] [facility] Body height 2020-09-11 00:50:00 165.1 cm [facility] [place] [facility] Body weight 2020-09-11 00:50:00 86.183 kg [facility] [place] [facility] BMI 2020-09-11 00:50:00 31.62 kg/m2 [facility] [place] [facility] Heart rate 2020-05-05 22:41:00 92 /min [facility] Systolic blood 2020-05-05 21:09:00 109 mm[Hg] [facility] [place] [facility] Diastolic blood 2020-05-05 21:09:00 77 mm[Hg] [facility] [place] [facility] Body temperature 2020-05-05 21:09:00 37.89 Kristy [facility] [place] [facility] Respiratory rate 2020-05-05 21:09:00 18 /min [facility] [place] [facility] Body weight 2020-05-05 21:09:00 86.183 kg [facility] [place] [facility] BMI 2020-05-05 21:09:00 32.61 kg/m2 [facility] Oxygen saturation in 2020-05-05 21:09:00 100 /min [facility] of Arterial blood by [facility] Pulse oximetry Branch Heart rate 2020-05-05 22:41:00 92 /min [facility] [place] [facility] Systolic blood 2020-05-05 21:09:00 109 mm[Hg] [facility] [place] [facility] Diastolic blood 2020-05-05 21:09:00 77 mm[Hg] [facility] [place] [facility] Body temperature 2020-05-05 21:09:00 37.89 Kristy [facility] [place] [facility] Respiratory rate 2020-05-05 21:09:00 18 /min [facility] [place] [facility] Body weight 2020-05-05 21:09:00 86.183 kg [facility] [place] [facility] BMI 2020-05-05 21:09:00 32.61 kg/m2 [facility] [place] [facility] Oxygen saturation in 2020-05-05 21:09:00 100 /min [facility] blood by [place] [facility] Pulse oximetry Branch Systolic blood 2019-10-04 23:45:19 136 mm[Hg] [facility] [place] [facility] Diastolic blood 2019-10-04 23:45:19 87 mm[Hg] [facility] [place] [facility] Heart rate 2019-10-04 23:45:19 69 /min [facility] [place] [facility] Respiratory rate 2019-10-04 23:45:19 16 /min [facility] [place] [facility] Oxygen saturation in 2019-10-04 23:45:19 100 /min [facility] Arterial blood by [facility] Pulse oximetry Branch Body temperature 2019-10-04 21:25:00 36.61 Kristy [facility] [place] [facility] Body height 2019-10-04 21:25:00 162.6 cm [facility] [place] [facility] Body weight 2019-10-04 21:25:00 88.905 kg [facility] [place] [facility] BMI 2019-10-04 21:25:00 33.64 kg/m2 [facility] [place] [facility] Systolic blood 2019-10-04 23:45:19 136 mm[Hg] [facility] [place] [facility] Diastolic blood 2019-10-04 23:45:19 87 mm[Hg] [facility] [place] [facility] Heart rate 2019-10-04 23:45:19 69 /min [facility] [place] [facility] Respiratory rate 2019-10-04 23:45:19 16 /min [facility] [place] [facility] Oxygen saturation in 2019-10-04 23:45:19 100 /min [facility] blood by [facility] Pulse oximetry Branch Body temperature 2019-10-04 21:25:00 36.61 Kristy [facility] Body height 2019-10-04 21:25:00 162.6 cm [facility] Body weight 2019-10-04 21:25:00 88.905 kg [facility] BMI 2019-10-04 21:25:00 33.64 kg/m2 [facility] BP Systolic 2022-02-02 16:41:00 BP Diastolic 2022-02-02 [...] /min Systolic (mm Hg) 2018-04-11 01:42:00 Yamil Gibson Diastolic (mm Hg) 2018-04-11 01:42:00 [facility] Heart Rate 2018-04-11 01:42:00 [facility] Respitory Rate 2018-04-11 01:42:00 [facility] Weight 2018-04-10 23:32:00 [facility] Systolic (mm Hg) 2018-04-10 23:32:00 Yamil [facility] Diastolic (mm Hg) 2018-04-10 23:32:00 [facility] Respitory Rate 2018-04-10 23:32:00 [facility] Heart Rate 2018-04-10 23:32:00 [facility] Temperature Oral (F) 2018-04-10 23:32:00 98.4 F [facility] Systolic (mm Hg) 2018-03-29 23:00:00 Yamil [facility] Diastolic (mm Hg) 2018-03-29 23:00:00 [facility] Respitory Rate 2018-03-29 23:00:00 [facility] Heart Rate 2018-03-29 23:00:00 [facility] Weight 2018-03-29 20:56:00 [facility] BMI Calculated 2018-03-29 20:56:00 [facility] Height 2018-03-29 20:56:00 162.56 cm [facility] Systolic (mm Hg) 2018-03-29 20:56:00 Yamil [facility] Diastolic (mm Hg) 2018-03-29 20:56:00 [facility] Heart Rate 2018-03-29 20:56:00 [facility] Respitory Rate 2018-03-29 20:56:00 [facility] Temperature Oral (F) 2018-03-29 20:56:00 98.9 F [facility] Body Temperature 2018-03-29 11:00:00 98.30 degrees Heart Rate 2018-03-29 11:00:00 82.00 /min Respiratory Rate 2018-03-29 11:00:00 16.00 /min BP Systolic 2018-03-29 11:00:00 118 mm[Hg] BP Diastolic 2018-03-29 11:00:00 77 mm[Hg] Weight Measured 2018-03-29 11:00:00 171.80 pounds Height Measured 2018-03-29 11:00:00 65.00 inches BP Systolic 2018-02-04 08:36:00 113 mm[Hg] BP [...] 16.00 /min Heart Rate 2017-11-17 06:13:00 [facility] Systolic (mm Hg) 2017-11-17 06:13:00 Yamil [facility] Diastolic (mm Hg) 2017-11-17 06:13:00 [facility] Temperature Oral (F) 2017-11-17 06:13:00 98 F [facility] Respitory Rate 2017-11-17 06:13:00 [facility] Heart Rate 2017-11-17 05:22:00 [facility] Respitory Rate 2017-11-17 05:22:00 [facility] Systolic (mm Hg) 2017-11-17 05:22:00 Yamil [facility] Diastolic (mm Hg) 2017-11-17 05:22:00 [facility] Weight 2017-11-17 02:49:00 [facility] Heart Rate 2017-11-17 02:49:00 [facility] Respitory Rate 2017-11-17 02:49:00 [facility] Temperature Oral (F) 2017-11-17 02:49:00 98 F [facility] Systolic (mm Hg) 2017-11-17 02:49:00 Yamil [facility] Diastolic (mm Hg) 2017-11-17 02:49:00 [facility] Temperature Oral (F) 2017-10-31 23:23:00 98.4 F [facility] Systolic (mm Hg) 2017-10-31 23:23:00 Yamil [facility] Diastolic (mm Hg) 2017-10-31 23:23:00 [facility] Respitory Rate 2017-10-31 23:23:00 [facility] Temperature Oral (F) 2017-10-31 21:50:00 98.8 F [facility] Systolic (mm Hg) 2017-10-31 21:50:00 Yamil [facility] [place] Diastolic (mm Hg) 2017-10-31 21:50:00 [facility] Respitory Rate 2017-10-31 21:50:00 [facility] Systolic (mm Hg) 2017-10-31 21:20:00 Yamil [facility] Diastolic (mm Hg) 2017-10-31 21:20:00 [facility] Respitory Rate 2017-10-31 21:20:00 [facility] BMI Calculated 2017-10-31 20:04:00 [facility] Weight 2017-10-31 20:04:00 [facility] Height 2017-10-31 20:04:00 162.56 cm [facility] Temperature Oral (F) 2017-10-31 20:04:00 99.6 F [facility] Heart Rate 2017-10-31 20:04:00 [facility] Systolic (mm Hg) 2017-10-26 07:51:00 Yamil [facility] Diastolic (mm Hg) 2017-10-26 07:51:00 [facility] Respitory Rate 2017-10-26 07:51:00 [facility] Heart Rate 2017-10-26 07:51:00 [facility] Temperature Oral (F) 2017-10-26 07:51:00 98.2 F [facility] Weight 2017-10-26 00:18:00 [facility] Respitory Rate 2017-10-26 00:18:00 [facility] Heart Rate 2017-10-26 00:18:00 [facility] Temperature Oral (F) 2017-10-26 00:18:00 98.2 F [facility] Systolic (mm Hg) 2017-10-26 00:18:00 Yamil [facility] Diastolic (mm Hg) 2017-10-26 00:18:00 [facility] Heart Rate 2017-10-13 17:16:00 [facility] Respitory Rate 2017-10-13 17:16:00 [facility] Systolic (mm Hg) 2017-10-13 17:16:00 Yamil [facility] Diastolic (mm Hg) 2017-10-13 17:16:00 [facility] Temperature Oral (F) 2017-10-13 17:16:00 98.2 F [facility] Temperature Oral (F) 2017-10-13 15:29:00 98.2 F [facility] Heart Rate 2017-10-13 15:29:00 [facility] Systolic (mm Hg) 2017-10-13 15:29:00 Yamil [facility] Diastolic (mm Hg) 2017-10-13 15:29:00 [facility] Respitory Rate 2017-10-13 15:29:00 [facility] Weight 2017-10-13 14:33:00 [facility] BMI Calculated 2017-10-13 14:33:00 [facility] Height 2017-10-13 14:33:00 162.56 cm [facility] Systolic (mm Hg) 2017-10-13 14:33:00 Yamil [facility] Diastolic (mm Hg) 2017-10-13 14:33:00 [facility] Heart Rate 2017-10-13 14:33:00 [facility] Respitory Rate 2017-10-13 14:33:00 [facility] Temperature Oral (F) 2017-10-13 14:33:00 98.4 F [facility] Heart Rate 2016-05-02 18:54:00 [facility] Systolic (mm Hg) 2016-05-02 18:54:00 Yamil [facility] Diastolic (mm Hg) 2016-05-02 18:54:00 [facility] Respitory Rate 2016-05-02 18:54:00 [facility] Temperature Oral (F) 2016-05-02 18:54:00 98.2 F [facility] Systolic (mm Hg) 2016-05-02 13:02:00 Yamil [facility] Diastolic (mm Hg) 2016-05-02 13:02:00 [facility] Heart Rate 2016-05-02 13:02:00 [facility] Respitory Rate 2016-05-02 13:02:00 [facility] Temperature Oral (F) 2016-05-02 13:02:00 98.9 F [facility] Systolic (mm Hg) 2016-05-02 11:09:00 Yamil [facility] Diastolic (mm Hg) 2016-05-02 11:09:00 [facility] Heart Rate 2016-05-02 11:09:00 [facility] Respitory Rate 2016-05-02 11:09:00 [facility] Temperature Oral (F) 2016-05-02 11:09:00 98.2 F [facility] BMI Calculated 2016-05-01 13:16:00 [facility] Weight 2016-05-01 13:16:00 [facility] Height 2016-04-24 16:15:00 162.56 cm [facility] Respitory Rate 2016-03-18 00:41:00 [facility] Systolic (mm Hg) 2016-03-18 00:41:00 Yamil [facility] Diastolic (mm Hg) 2016-03-18 00:41:00 [facility] Temperature Oral (F) 2016-03-18 00:41:00 98.7 F [facility] Heart Rate 2016-03-18 00:41:00 [facility] Weight 2016-03-17 22:25:00 [facility] BMI Calculated 2016-03-17 22:25:00 [facility] Height 2016-03-17 22:25:00 162.56 cm [facility] Temperature Oral (F) 2016-03-17 22:25:00 102.4 F [facility] Systolic (mm Hg) 2016-03-17 22:25:00 Yamil [facility] Diastolic (mm Hg) 2016-03-17 22:25:00 [facility] Heart Rate 2016-03-17 22:25:00 [facility] Respitory Rate 2016-03-17 22:25:00 [facility] Temperature Oral (F) 2015-08-03 15:47:00 98.1 F [facility] Respitory Rate 2015-08-03 15:47:00 [facility] Systolic (mm Hg) 2015-08-03 15:47:00 Yamil [facility] Diastolic (mm Hg) 2015-08-03 15:47:00 [facility] Heart Rate 2015-08-03 15:47:00 [facility] Systolic (mm Hg) 2015-08-03 14:34:00 Yamil [facility] Diastolic (mm Hg) 2015-08-03 14:34:00 [facility] Height 2015-08-03 14:34:00 165.1 cm [facility] Heart Rate 2015-08-03 14:34:00 [facility] Respitory Rate 2015-08-03 14:34:00 [facility] BMI Calculated 2015-08-03 14:34:00 [facility] Weight 2015-08-03 14:34:00 [facility] Temperature Oral (F) 2015-08-03 14:34:00 98.1 F [facility] Respitory Rate 2015-04-08 21:27:00 [facility] Systolic (mm Hg) 2015-04-08 21:27:00 Yamil [facility] Diastolic (mm Hg) 2015-04-08 21:27:00 [facility] Heart Rate 2015-04-08 21:27:00 [facility] Weight 2015-04-08 19:07:00 [facility] Respitory Rate 2015-04-08 17:49:00 [facility] Heart Rate 2015-04-08 17:49:00 [facility] Systolic (mm Hg) 2015-04-08 17:49:00 Yamil [facility] Diastolic (mm Hg) 2015-04-08 17:49:00 [facility] Heart Rate 2015-04-08 13:34:00 [facility] Respitory Rate 2015-04-08 13:34:00 [facility] Systolic (mm Hg) 2015-04-08 13:34:00 Yamil [facility] Diastolic (mm Hg) 2015-04-08 13:34:00 [facility] Temperature Oral (F) 2015-04-08 10:00:00 97.5 F [facility] Temperature Oral (F) 2015-04-08 06:00:00 97.9 F [facility] Temperature Oral (F) 2015-04-08 02:00:00 98.6 F [facility] BMI Calculated 2015-04-07 23:28:00 [facility] Weight 2015-04-07 23:28:00 [facility] Height 2015-04-07 23:28:00 165.1 cm [facility] Weight 2015-04-07 13:01:00 [facility] BMI Calculated 2015-04-07 13:01:00 [facility] Height 2015-04-07 13:01:00 165.1 cm [facility] Respitory Rate 2014-11-07 17:53:00 [facility] Systolic (mm Hg) 2014-11-07 17:53:00 Yamil [facility] Diastolic (mm Hg) 2014-11-07 17:53:00 [facility] Heart Rate 2014-11-07 17:53:00 [facility] Temperature Oral (F) 2014-11-07 17:53:00 98.6 F [facility] Systolic (mm Hg) 2014-11-07 12:53:00 Yamil [facility] Diastolic (mm Hg) 2014-11-07 12:53:00 [facility] Heart Rate 2014-11-07 12:53:00 [facility] Respitory Rate 2014-11-07 12:53:00 [facility] Temperature Oral (F) 2014-11-07 12:53:00 98.9 F [facility] Systolic (mm Hg) 2014-11-07 09:00:00 Yamil [facility] Diastolic (mm Hg) 2014-11-07 09:00:00 [facility] Temperature Oral (F) 2014-11-07 09:00:00 98.1 F [facility] Heart Rate 2014-11-07 09:00:00 [facility] Respitory Rate 2014-11-07 09:00:00 [facility] BMI Calculated 2014-11-05 19:27:00 [facility] Weight 2014-11-05 19:27:00 [facility] Height 2014-11-05 19:27:00 165.1 cm [facility] Temperature Oral (F) 2014-11-03 18:30:00 98.0 F [facility] Systolic (mm Hg) 2014-11-03 18:30:00 Yamil [facility] Diastolic (mm Hg) 2014-11-03 18:30:00 [facility] Respitory Rate 2014-11-03 18:30:00 [facility] Temperature Oral (F) 2014-11-03 17:20:00 98.2 F [facility] Respitory Rate 2014-11-03 17:20:00 [facility] Systolic (mm Hg) 2014-11-03 17:20:00 Yamil [facility] Diastolic (mm Hg) 2014-11-03 17:20:00 [facility] Systolic (mm Hg) 2014-11-03 15:30:00 Yamil [facility] Diastolic (mm Hg) 2014-11-03 15:30:00 [facility] Respitory Rate 2014-11-03 15:30:00 [facility] Heart Rate 2014-11-03 13:34:00 [facility] Weight 2014-11-03 13:34:00 [facility] Temperature Oral (F) 2014-11-03 13:34:00 98.2 F [facility] Diastolic (mm Hg) 2013-03-08 01:37:00 [facility] Heart Rate 2013-03-08 01:37:00 [facility] Temperature Oral (F) 2013-03-08 01:37:00 100.1 F [facility] Systolic (mm Hg) 2013-03-08 01:37:00 Aymil [facility] Respitory Rate 2013-03-08 01:37:00 [facility] Temperature Oral (F) 2013-03-08 00:54:00 102.8 F [facility] Temperature Oral (F) 2013-03-08 00:22:00 103.1 F [facility] Systolic (mm Hg) 2013-03-07 23:25:00 Yamil [facility] Respitory Rate 2013-03-07 23:25:00 [facility] Diastolic (mm Hg) 2013-03-07 23:25:00 [facility] Heart Rate 2013-03-07 23:25:00 [facility] Systolic (mm Hg) 2013-03-07 20:11:00 Yamil [facility] Diastolic (mm Hg) 2013-03-07 20:11:00 [facility] Respitory Rate 2013-03-07 20:11:00 [facility] Heart Rate 2013-03-07 20:11:00 [facility] Diastolic (mm Hg) 2013-03-07 18:24:00 [facility] Respitory Rate 2013-03-07 18:24:00 [facility] Systolic (mm Hg) 2013-03-07 18:24:00 Yamil [facility] Heart Rate 2013-03-07 18:24:00 [facility] Temperature Oral (F) 2013-03-07 18:24:00 99.1 F [facility] Systolic (mm Hg) 2013-03-07 17:30:00 Yamil [facility] Diastolic (mm Hg) 2013-03-07 17:30:00 [facility] Heart Rate 2013-03-07 17:30:00 [facility] Respitory Rate 2013-03-07 17:30:00 [facility] Systolic (mm Hg) 2013-03-07 15:59:00 Yamil [facility] Diastolic (mm Hg) 2013-03-07 15:59:00 [facility] Heart Rate 2013-03-07 15:59:00 [facility] Respitory Rate 2013-03-07 15:59:00 [facility] Temperature Oral (F) 2013-03-07 15:16:00 101.2 F [facility] Height 2012-04-04 03:37:00 162.56 cm [facility] Weight 2012-04-04 03:37:00 [facility] Procedures Procedure Date / Time Performing Clinician Source Performed COMP. METABOLIC PANEL 2021-10-18 17:29:00 Cristal Young [facility] ([id number]) [facility] CBC WITH DIFF 2021-10-18 17:29:00 Cristal Young [facility] CT ABDOMEN PELVIS WO 2021-10-18 17:18:40 Cristal Young [facility] CONTRAST [facility] URINALYSIS 2021-10-18 16:11:00 Cristal Young [facility] CONSENT/REFUSAL FOR 2021-10-18 15:31:32 Doctor Unassigned, No Un [facility] DIAGNOSIS AND TREATMENT Name Medical Branch CT ABDOMEN PELVIS W 2021-09-24 17:21:[address] [facility] CONTRAST Medical Branch LIPASE 2021-09-24 16:53:00 Alejandrina Pena [facility] COMP. METABOLIC PANEL 2021-09-24 16:53:00 Alejandrina Pena [facility] ([id number]) Medical Branch CBC WITH DIFF 2021-09-24 16:53:00 Alejandrina Pena [facility] PROTHROMBIN TIME / INR 2021-09-24 16:53:00 Alejandrina Pena [facility] ACTIVATED PARTIAL 2021-09-24 16:53:00 Alejandrina Pena [facility] THRMPLAS [facility] URINALYSIS 2021-09-24 16:53:00 Jean [facility] CONSENT/REFUSAL FOR 2021-09-24 16:13:53 Doctor Unassigned, No [facility] [place] [facility] POCT TEST 2021-04-10 20:49:00 Ranjit Church [facility] CREATINE KINASE 2021-04-10 20:44:00 Ranjit [facility] COMP. METABOLIC PANEL 2021-04-10 20:44:00 Ranjit Church [facility] ([id number]) [facility] CBC WITH DIFF 2021-04-10 20:44:00 Ranjit [facility] URINALYSIS 2021-04-10 20:44:00 Ranjit [facility] XR CHEST 1 VW 2021-04-10 19:38:38 Ranjit [facility] CONSENT/REFUSAL FOR 2021-04-10 18:33:05 Doctor Unassigned, No [facility] [place] [facility]REAT[facility] XR ABDOMEN ACUTE SERIES 2021-04-03 07:31:57 Diana Bradford [facility] URINALYSIS 2021-04-03 07:10:00 Diana Bradford [facility] COVID-19 (ID NOW RAPID 2021-04-03 07:10:00 Diana Bradford [facility] TESTING) [facility] NOTICE OF PRIVACY 2021-04-03 06:51:09 Doctor Unassigned, No Univ [facility] PRACTICES Name [facility] CONSENT/REFUSAL FOR 2021-04-03 06:49:41 Doctor Unassigned, No [facility] [place] [facility] TREAT[facility] EKG-12 LEAD 2020-09-11 03:54:05 Ingrid Paez [facility] XR CHEST 1 VW 2020-09-11 01:03:05 Ingrid Paez [facility] CBC WITH DIFF 2020-09-11 00:55:00 Ingrid Paez [facility] PROTHROMBIN TIME / INR 2020-09-11 00:55:00 Ingird Paez [facility] 2020-09-11 00:55:00 Ingrid Paez [facility] THRMPLAS MELISSA Medical Branch LIPASE 2020-09-11 00:55:00 Ingrid Paez [facility] TROPONIN I 2020-09-11 00:55:00 Ingrid Paez [facility] COMP. METABOLIC PANEL 2020-09-11 00:55:00 Ingrid Paez [facility] ([id number]) [facility] CONSENT/REFUSAL FOR 2020-09-11 00:37:21 Doctor Unassigned, No [facility] [place] [facility] TREATMENT [facility] URINALYSIS 2020-05-05 21:33:00 Marisol Ocampo [facility] NOTICE OF PRIVACY 2020-05-05 21:03:49 [facility] FOR 2020-05-05 21:02:41 [facility]igned, No [facility] XR FOOT 3+ VW LEFT 2019-10-04 22:26:37 Ranjit Church [facility] NOTICE OF PRIVACY 2019-10-04 21:14:42 Doctor Unassigned, No [facility] Laparoscopic 2016-05-01 06:00:00 [facility] hysterectomy [facility] [place] section<sup>1</sup> Plan of Care Planned Activity Planned Date Details Comments Source Goal Plan of Care Note [code = 72561-8] Goal Plan of Care Note [code = 92841-1] Goal Plan of Care Note [code = 90548-7] Goal Plan of Care Note [code = 50197-5] Goal Plan of Care Note [code = 78312-3] Goal Plan of Care Note [code = 32009-0] Goal Plan of Care Note [code = 27705-9] Goal Plan of Care Note [code = 07604-3] Goal Plan of Care Note [code = 54321-4] Goal Plan of Care Note [code = 83934-1] Goal Plan of Care Note [code = 11256-8] Goal Plan of Care Note [code = 94095-8] Goal Plan of Care Note [code = 95527-7] Goal Plan of Care Note [code = 53096-2] Goal Plan of Care Note [code = 45253-5] Goal Plan of Care Note [code = 77056-7] Goal Plan of Care Note [code = 75384-4] Goal Plan of Care Note [code = 43691-2] Goal Plan of Care Note [code = 44431-6] Goal Plan of Care Note [code = 28552-4] Goal Plan of Care Note [code = 24694-6] Goal Plan of Care Note [code = 45650-3] Goal Plan of Care Note [code = 95396-3] Goal Plan of Care Note [code = 61010-4] Goal Plan of Care Note [code = 36119-8] Goal Plan of Care Note [code = 58425-3] Goal Plan of Care Note [code = 26843-4] Goal Plan of Care Note [code = 22633-3] Goal Plan of Care Note [code = 66169-4] Goal Plan of Care Note [code = 13155-2] Goal Plan of Care Note [code = 22218-6] Goal Plan of Care Note [code = 86825-4] Goal Plan of Care Note [code = 11638-5] Goal Plan of Care Note [code = 31092-1] Goal Plan of Care Note [code = 30125-3] Goal Plan of Care Note [code = 22249-0] Goal Plan of Care Note [code = 66257-7] Goal Plan of Care Note [code = 52892-9] Goal Plan of Care Note [code = 96614-1] Goal Plan of Care Note [code = 30663-8] Goal Plan of Care Note [code = 33889-0] Goal Plan of Care Note [code = 77730-6] Goal Plan of Care Note [code = 96648-1] Goal Plan of Care Note [code = 59064-8] Goal Plan of Care Note [code = 47728-6] Goal Plan of Care Note [code = 49530-4] Goal Plan of Care Note [code = 95868-7] Goal Plan of Care Note [code = 76346-1] Goal Plan of Care Note [code = 14974-4] Goal Plan of Care Note [code = 52749-8] Goal Plan of Care Note [code = 43010-5] Goal Plan of Care Note [code = 77403-6] Goal Plan of Care Note [code = 52050-6] Goal Plan of Care Note [code = 89222-2] Goal Plan of Care Note [code = 09956-2] Goal Plan of Care Note [code = 40670-8] Goal Plan of Care Note [code = 82569-8] Goal Plan of Care Note [code = 87057-4] Goal Plan of Care Note [code = 48120-9] Goal Plan of Care Note [code = 73424-5] Goal Plan of Care Note [code = 98156-1] Goal Plan of Care Note [code = 89844-7] Goal Plan of Care Note [code = 02163-4] Goal Plan of Care Note [code = 92487-2] Goal Plan of Care Note [code = 48817-7] Goal Plan of Care Note [code = 72709-3] Goal Plan of Care Note [code = 80298-0] Goal Plan of Care Note [code = 91543-4] Goal Plan of Care Note [code = 93342-8] Goal Plan of Care Note [code = 86749-3] Goal Plan of Care Note [code = 56795-9] Goal Plan of Care Note [code = 80568-5] Goal Plan of Care Note [code = 52381-7] Goal Plan of Care Note [code = 94669-7] Goal Plan of Care Note [code = 07941-5] Goal Plan of Care Note [code = 23605-4] Goal Plan of Care Note [code = 69210-0] Goal Plan of Care Note [code = 20334-3] Goal Plan of Care Note [code = 28629-0] Goal Plan of Care Note [code = 36276-1] Goal Plan of Care Note [code = 60314-1] Goal Plan of Care Note [code = 93904-0] Goal Plan of Care Note [code = 21013-8] Goal Plan of Care Note [code = 38089-4] Goal Plan of Care Note [code = 88783-7] Goal Plan of Care Note [code = 28772-0] Goal Plan of Care Note [code = 51356-9] Goal Plan of Care Note [code = 75474-0] Goal Plan of Care Note [code = 01308-3] Goal Plan of Care Note [code = 73490-4] Goal Plan of Care Note [code = 03823-4] Goal Plan of Care Note [code = 31377-6] Goal Plan of Care Note [code = 16432-4] Goal Plan of Care Note [code = 30193-7] Goal Plan of Care Note [code = 88344-0] Goal Plan of Care Note [code = 22065-9] Goal Plan of Care Note [code = 77658-9] Goal Plan of Care Note [code = 05336-9] Goal Plan of Care Note [code = 60467-0] Goal Plan of Care Note [code = 79447-6] Goal Plan of Care Note [code = 32612-4] Goal Plan of Care Note [code = 35993-4] Goal Plan of Care Note [code = 53282-6] Goal Plan of Care Note [code = 74322-6] Goal Plan of Care Note [code = 05204-2] Goal Plan of Care Note [code = 39013-6] Goal Plan of Care Note [code = 88706-5] Goal Plan of Care Note [code = 15555-1] Goal Plan of Care Note [code = 65605-8] Goal Plan of Care Note [code = 47981-3] Goal Plan of Care Note [code = 80644-2] Goal Plan of Care Note [code = 21922-0] Goal Plan of Care Note [code = 11105-8] Goal Plan of Care Note [code = 94247-7] Goal Plan of Care Note [code = 40018-1] Goal Plan of Care Note [code = 65805-3] Goal Plan of Care Note [code = 43291-4] Goal Plan of Care Note [code = 16882-7] Goal Plan of Care Note [code = 35327-4] Goal Plan of Care Note [code = 31564-4] Goal Plan of Care Note [code = 48804-8] Goal Plan of Care Note [code = 53276-4] Goal Plan of Care Note [code = 12010-9] Goal Plan of Care Note [code = 11611-1] Goal Plan of Care Note [code = 54062-1] Goal Plan of Care Note [code = 87236-0] Goal Plan of Care Note [code = 35016-3] Goal Plan of Care Note [code = 72564-3] Goal Plan of Care Note [code = 70307-2] Goal Plan of Care Note [code = 41132-6] Goal Plan of Care Note [code = 91677-8] Goal Plan of Care Note [code = 57527-1] Goal Plan of Care Note [code = 98461-0] Goal Plan of Care Note [code = 51258-2] Goal Plan of Care Note [code = 34544-6] Goal Plan of Care Note [code = 67217-0] Goal Plan of Care Note [code = 08121-8] Goal Plan of Care Note [code = 63575-5] Goal Plan of Care Note [code = 29272-2] Goal Plan of Care Note [code = 73369-9] Goal Plan of Care Note [code = 94238-5] Goal Plan of Care Note [code = 67364-6] Goal Plan of Care Note [code = 80597-1] Goal Plan of Care Note [code = 67543-2] Goal Plan of Care Note [code = 66062-7] Goal Plan of Care Note [code = 70067-8] Goal Plan of Care Note [code = 49783-5] Goal Plan of Care Note [code = 91945-7] Goal Plan of Care Note [code = 21045-7] Goal Plan of Care Note [code = 74067-4] Goal Plan of Care Note [code = 38788-1] Goal Plan of Care Note [code = 04132-0] Goal Plan of Care Note [code = 42938-2] Goal Plan of Care Note [code = 80199-0] Goal Plan of Care Note [code = 35161-3] Goal Plan of Care Note [code = 29136-2] Goal Plan of Care Note [code = 47859-1] Goal Plan of Care Note [code = 29678-7] Goal Plan of Care Note [code = 07488-2] Goal Plan of Care Note [code = 25205-2] Goal Plan of Care Note [code = 06492-6] Goal Plan of Care Note [code = 35800-8] Goal Plan of Care Note [code = 76494-4] Goal Plan of Care Note [code = 16868-6] Goal Plan of Care Note [code = 41340-0] Goal Plan of Care Note [code = 98199-5] Goal Plan of Care Note [code = 04687-3] Goal Plan of Care Note [code = 21729-6] Goal Plan of Care Note [code = 73055-2] Goal Plan of Care Note [code = 93406-7] Goal Plan of Care Note [code = 19633-3] Goal Plan of Care Note [code = 67816-5] Goal Plan of Care Note [code = 78986-5] Goal Plan of Care Note [code = 65141-4] Goal Plan of Care Note [code = 11103-4] Goal Plan of Care Note [code = 69296-2] Goal Plan of Care Note [code = 18195-3] Goal Plan of Care Note [code = 12999-2] Goal Plan of Care Note [code = 48115-3] Goal Plan of Care Note [code = 68539-6] Goal Plan of Care Note [code = 45151-6] Goal Plan of Care Note [code = 95342-8] Goal Plan of Care Note [code = 88862-5] Goal Plan of Care Note [code = 78268-3] Goal Plan of Care Note [code = 05783-0] Goal Plan of Care Note [code = 35011-4] Goal Plan of Care Note [code = 06150-1] Goal Plan of Care Note [code = 72706-4] Goal Plan of Care Note [code = 31453-0] Goal Plan of Care Note [code = 58763-5] Goal Plan of Care Note [code = 93890-6] Goal Plan of Care Note [code = 04199-0] Goal Plan of Care Note [code = 53902-6] Goal Plan of Care Note [code = 04283-9] Goal Plan of Care Note [code = 86700-2] Goal Plan of Care Note [code = 33012-1] Goal Plan of Care Note [code = 52576-8] Goal Plan of Care Note [code = 14868-5] Goal Plan of Care Note [code = 55678-2] Goal Plan of Care Note [code = 90501-6] Goal Plan of Care Note [code = 05490-4] Goal Plan of Care Note [code = 64376-4] Goal Plan of Care Note [code = 23949-8] Goal Plan of Care Note [code = 43916-1] Goal Plan of Care Note [code = 24504-7] Goal Plan of Care Note [code = 52473-5] Goal Plan of Care Note [code = 53758-0] Goal Plan of Care Note [code = 78300-2] Encounters Start End Encounter Admission Attending Care Care Encounter Source Date/Time Date/Time Type Type Clinicians Facility Department ID 2022-02-03 2022-02-03 Outpatient [facility] [id number] Emiliano 13:28:04 13:28:04 1111 F Luis Alberto 2022-02-02 2022-02-02 Outpatient [facility] [id number] Emiliano 16:28:55 16:28:55 1110 F Luis Alberto 2022-02-02 2022-02-02 Outpatient 87dx1v9l- [id number] er8p9a-9 00:00:00 00:00:00 Visit 99y4-9e47 7d3-6r12-4 -8712-4fd 712-4fdd90 b9015x47w 85f97b 2021-10-20 2021-10-20 Outpatient 20ci1oo2- [id number] aa1mr6-2 00:00:00 00:00:00 Visit 1687-4b02 687-4b02-8 -86fe-74e 6fe-74ef79 d08w265e0 c652b1 2021-10-18 2021-10-18 [facility] [id number] Univers 10:32:00 14:15:00 CRISTAL gallego [facility] 2021-10-18 2021-10-18 [facility] 1.2.840.114 [id number] Univers 10:32:00 14:15:00 Cristal CARROLL 350.1.13.10 julián [facility] 4.2.7.2.686 [facility] [id number] [address] 2021-10-07 2021-10-07 Outpatient i1t1v2r3- [id number] b1 d9g1p0-p 00:00:00 00:00:00 Visit fbd6-47c9 bd6-47c9-8 -8149-d53 149-d53be4 yw76215g7 7622c3 2021-09-29 2021-09-29 Outpatient 514ci038- [id number] 0ll812-j 00:00:00 00:00:00 Visit bab9-4b5f ab9-4b5f-9 -19k4-453 7s9-913281 712hj7x34 ae9f73 2021-09-24 2021-09-24 [facility] [id number] Univers 11:21:00 13:51:00 ALEJANDRINA [facility] 2021-09-24 2021-09-24 [facility] [id number] [id number] Univers 11:21:00 13:51:00 Alejandrina CARROLL 350.1.13.10 i ty of [place] 4.2.7.2.686 [facility] [id number] [address] 2021-09-21 2021-09-21 Outpatient 5n8h04g7- [id number] 7d 6h93v9-2 00:00:00 00:00:00 Visit 6165-1936 462-4366-a -h353-121 185-52688f 86g76odbc 36fdaa 2021-04-10 2021-04-10 Emergency X [facility] ERT [id number] Univers 12:42:00 16:01:00 RANJIT [facility] 2021-04-10 2021-04-10 Emergency [facility] 1.2.840.114 [id number] Univers 12:42:00 16:01:00 Ranjit CARROLL 350.1.13.10 i ty [place] 4.2.7.2.686 [facility] [id number] [address] 2021-04-03 2021-04-03 Emergency X [facility] ERT [id number] Univers 01:07:00 01:54:00 DIANA [facility] 2021-04-03 2021-04-03 Emergency [facility] 1.2.939.364 [id number] Univers 01:07:00 01:54:00 Diana Ortiz [place] 350.1.13.10 ity [place] 4.2.7.2.686 [facility] [id number] [address] 2020-09-10 2020-09-10 [facility] 1.2.543.137 [id number] Univers 19:42:00 23:08:00 Ingrid Carpenter [facility] 350.1.13.10 ity of [place] 4.2.7.2.[address] [place] [id number] 2020-09-10 2020-09-10 Emergency X [facility] ERT [id number] Univers 19:42:00 19:42:00 HELENELI [facility] 2020-05-05 2020-05-05 Emergency [facility] [id number] [id number] Univers 15:10:00 16:55:00 Marisol R [place] 350.1.13.10 i ty of [place] 4.2.7.[address] [place] [id number] 2020-05-05 2020-05-05 Emergency [facility] 1.2.758.932 [id number] 15:10:00 16:55:00 Marisol R [facility] 350.1.13.[address] [address] [place] [address] [id number] [facility] 2020-05-05 2020-05-05 Emergency X [facility] ERT [id number] Univers 15:03:00 15:03:00 MARISOL ity [facility] 2019-10-04 2019-10-04 Emergency [facility] 1.2.840.114 [id number] 16:26:50 19:58:00 Shinta [facility] 350.1.13.[address] [address] [place] [address] [id number] 2019-10-04 2019-10-04 Emergency [facility] 1.2.840.114 [id number] Univers 16:26:50 19:58:00 Shinta [place] 350.1.13.10 i [facility] 4.2.7.2.686 [facility] [id number] [place] [address] [place] 2019-10-04 2019-10-04 Emergency Milagros CHURCH [facility] ERT [id number] Univers 16:26:50 16:26:50 ELBERTSYED gasperlesly [facility] 2018-04-10 2018-04-11 [facility] [id number] Memoria 23:22:00 01:59:00 claudia Gibson 15 [facility] 2018-04-10 2018-04-11 [facility] [id number] Memoria 23:22:00 01:59:00 claudia Rye [address] [place] [address] 2018-04-10 2018-04-10 Outpatient Bertha [facility] [id number] 17:22:00 19:59:00 Jeremiahtracie Adkins 15 2018-03-29 2018-03-29 [facility] [id number] Memoria 20:53:00 23:30:00 claudia Rye [address] [place] [address] 2018-03-29 2018-03-29 [facility] [id number] Memoria 20:53:00 23:30:[address] 2018-03-29 2018-03-29 Outpatient Taj [facility] [id number] 14:53:00 17:30:00 Ariln Wang 14 2017-11-17 2017-11-17 [facility] [id number] Memoria 02:34:00 06:15:00 r Arthur Anne [facility] 2017-11-17 2017-11-17 [facility] [id number] Memoria 02:34:00 06:15:00 claudia Rye 13 [facility] 2017-11-16 2017-11-[address] [id number] 21:34:00 01:15:00 Ambica 13 2017-11-16 2017-11-16 Emergency E MHBL [facility]BL 7513 MHBL 21:34:00 21:34:00 2017-10-31 2017-10-31 [facility] [id number] Memoria 19:57:00 23:33:00 claudia Arthur [address] [place] [address] 2017-10-31 2017-10-31 [facility] [id number] Memoria 19:57:00 23:33:00 claudia Gibson 12 [facility] 2017-10-31 2017-10-31 Outpatient Azcarinva-A [facility] [id number] 14:57:00 18:33:00 Rusty varnerrolandelsichristiannetoya 2017-10-26 2017-10-26 [facility] [id number] Memoria 00:14:00 07:52:00 claudia Gibson 11 [facility] 2017-10-26 2017-10-26 [facility] [id number] Memoria 00:14:00 07:52:00 claudia Gibson 11 [facility] 2017-10-25 2017-10-26 Outpatient Amelia [facility] [id number] 19:14:00 02:52:00 Juve Michael James 2017-10-13 2017-10-13 [facility] [id number] Memoria 14:30:00 17:24:00 claudia Gibson 10 [facility] 2017-10-13 2017-10-13 [facility] [id number] Memoria 14:30:00 17:24:00 claudia Gibson 10 [facility] 2017-10-13 2017-10-13 Outpatient Jaelyn, MHPL PL [id number] 09:30:00 12:24:00 [facility] 2017-10-13 2017-10-13 Outpatient Christy, MHPL PL [id number] 09:30:00 12:24:00 Young Guthrie 2017-10-05 2017-10-05 Emergency [facility] [id number] Millard 12:20:00 12:20:00 [facility] 2017-07-14 2017-07-14 Emergency [facility] [id number] Freeman 08:07:11 08:07:11 [facility] 2017-07-14 2017-07-14 Outpatient [facility] [id number] Millard 05:07:03 05:07:03 [facility] 2016-05-01 2016-05-02 [facility] [id number] Memoria 11:36:30 21:50:00 Outpatient claudia Gibson 09 [facility] 2016-05-01 2016-05-02 [facility] [id number] Memoria 11:36:30 21:50:00 [facility] 09 [facility] 2016-05-01 2016-05-02 Outpatient Darren Mars [facility] [id number] 05:36:30 15:50:00 T 09 2016-03-17 2016-03-18 [facility] [id number] Memoria 21:57:00 01:05:00 r Arthur 07 l [facility] 2016-03-17 2016-03-18 [facility] [id number] Memoria 21:57:00 01:05:00 r Arthur [address] [place] [address] 2016-03-17 2016-03-17 Outpatient Weathers, [facility]PL [facility] [id number] 15:57:00 19:05:00 Asim Sands 2015-08-03 2015-08-03 EC [facility] [id number] Memoria 14:32:00 16:11:00 Emergency r Rye 06 l [facility] 2015-08-03 2015-08-03 [facility] [id number] Memoria 14:32:00 16:11:00 Emergency r Arthur 06 l [facility] 2015-08-03 2015-08-03 Outpatient Ulysses [facility] [id number] 09:32:00 11:11:00 Sofiya 06 Evelyn 2015-04-07 2015-04-08 OBS [facility] [id number] Memoria 13:00:00 23:27:00 Observatio r Rye 05 l n Patient [facility] 2015-04-07 2015-04-08 OBS [facility] [id number] Memoria 13:00:00 23:27:00 Observatio r Arthur 05 l n Patient [facility] 2015-04-07 2015-04-08 Outpatient Michael [facility] [id number] 07:00:00 17:27:00 Follett 05 2014-11-05 2014-11-07 OBS [facility] [id number] Memoria 19:22:00 21:40:00 Observatio r Arthur 04 l n Patient [facility] 2014-11-05 2014-11-07 OBS [facility] [id number] Memoria 19:22:00 21:40:00 Observatio r Arthur 04 l n Patient [facility] 2014-11-05 2014-11-07 Outpatient Nabor Snow MHSE MHSE [id number] 14:22:00 16:40:00 Jude 04 2014-11-03 2014-11-03 [facility] [id number] Memoria 13:30:00 18:40:00 Emergency r Rye 03 l [facility] 2014-11-03 2014-11-03 EC [facility] [id number] Memoria 13:30:00 18:40:00 Emergency r Rye 03 [facility] 2014-11-03 2014-11-03 Outpatient Ruslan YSABEL MHSE [id number] 08:30:00 13:40:00 Joy Yocasta [facility] 2013-03-07 2013-03-07 Emergency [facility]Fl[facility] [id number] Memoria 14:11:00 20:05:00 r [facility] 02 [facility] 2013-03-07 2013-03-07 Outpatient 2.16.840. 2.16.840.1. 3 [id number] Memoria 14:11:00 20:05:00 1.543797. 291414.3.61 l 3.615.0.1 5.0.100 Cheko n 00 [facility] 2013-03-07 2013-03-07 Emergency [facility] [id number] Memoria 14:11:00 20:05:00 r [facility] 02 [facility] 2013-03-07 2013-03-07 Emergency [place]Fl[place] [id number] Memoria 09:06:00 12:26:00 r [facility] 2013-03-07 2013-03-07 Outpatient 2.16.840. 2.16.840.1. 3 [id number] Memoria 09:06:00 12:26:00 1.444714. 870831.3.61 l 3.615.0.1 5.0.100 Cheko n 00 [facility] 2013-03-07 2013-03-07 Emergency nullFlavo [id number] Memoria 09:06:00 12:26:00 r [facility] l Arthur 2012-04-03 2012-04-04 Emergency nullFlavo [id number] Memoria 21:19:00 03:17:00 r [facility] l Arthur 2012-04-03 2012-04-04 Emergency nullFlavo [id number] Memoria 21:19:00 03:17:00 r [facility] Results Test Description Test Time Test Comments Results Result Comments Source COMP. METABOLIC PANEL (33996) 2021-10-18 18:06:10 Test Item Value Reference Range Interpretation Comme nts NA (test code = 1133886405) 140 mmol/L 135-145 K (test code = 8012128134) 4.6 mmol/L 3.5-5 CL (test code = 1271746676) 101 mmol/L 98-108 CO2 TOTAL (test code = 3833890359) 27 mmol/L 23-31 AGAP (test code = 1669524128) 2-16 BUN (test code = 1310126965) 7 mg/dL 7-23 GLUCOSE (test code = 7673196444) 87 mg/dL 70-110 CREATININE (test code = 0.63 mg/dL 0.5-1.04 7987774582) TOTAL BILI (test code = 0.6 mg/dL 0.1-1.9 8695844891) CALCIUM (test code = 1654484306) 10.7 mg/dL 8.6-10.6 H T PROTEIN (test code = 2574412185) 9.0 g/dL 6.3-8.2 H ALBUMIN (test code = 3847635303) 4.5 g/dL 3.5-5 ALK PHOS (test code = 3394749208) 100 U/L 34-122 ALTv (test code = 1742-6) 31 U/L 5-35 AST(SGOT) (test code = 7291489758) 34 U/L 13-40 eGFR (test code = 8972944427) mL/min/1.73m2 YANIRA (test code = YANIRA) Association [...] tests). Lab Interpretation (test code = Abnormal 75402-1) [facility] WITH [id number] 17:55:25 Test Item Value Reference Range Interpretation Comments WBC (test code = See_Comment [Automated message] 6690-2) The system [employer] generated this result transmitted ref erence range: 4.30 - 1 1.10 10*3/?L. The re ference range was not u sed to interpret this result as normal/abnor mal. RBC (test code = See_Comment [Automated message] 789-8) The system [employer] generated this result transmitted ref erence range: [...] RDW-SD (test code 43.7 fL 39-49.9 = 01979-3) RDW-CV (test code 13.2 % 12-15.5 = 788-0) PLT (test code = See_Comment [Automated message] 777-3) The system whic h generated this result transmitted ref erence range: 166 - 35 8 10*3/?L. The re ference range was not u sed to interpret this result as normal/abnor mal. MPV (test code = 10.2 fL 9.5-12.9 19080-9) NRBC/100 WBC (test See_Comment [Automat ed message] code = 6338263916) The syste m which generated this result transmitted ref erence range: 0.0 - 10 .0 /100 WBCs. The refer ence range was not u sed to interpret this result as normal/abnor mal. NRBC x10^3 (test See_Comment [Automated message] code = 0230120390) The syste m which generated this result transmitted ref erence range: 10*3/?L. The reference range was not used to interpr et this result as normal/abnormal . GRAN MAT (NEUT) % 53.2 % (test code = 770-8) IMM GRAN % (test 0.50 % code = 6777217581) LYMPH % (test code 36.0 % = 736-9) MONO % (test code 7.9 % = 5905-5) EOS % (test code = 1.8 % 713-8) BASO % (test code 0.6 % = 706-2) GRAN MAT 3.49 10*3/uL 1.88-7.09 x10^3(ANC) (test code = 5963955872) IMM GRAN x10^3 0.03 10*3/uL 0-0.06 (test code = 3049310945) LYMPH x10^3 (test 2.36 10*3/uL 1.32-3.29 code = 731-0) MONO x10^3 (test 0.52 10*3/uL 0.33-0.92 code = 742-7) EOS x10^3 (test 0.12 10*3/uL 0.03-0.39 code = 711-2) BASO x10^3 (test 0.04 10*3/uL 0.01-0.07 code = 704-7) [facility], THIRD [id number] 06:23:52 Test Item Value Reference Range Interpretation Comments TSH, THIRD 0.436 UIU/ML 0.400-4.100 UNLESS OTHERWI SE GENERATION (test INDICATED, ALL TESTING code = 2821) PERFORMED [facility], [facility]. [address] [place], [place] [address] [place] [address] DIRECTOR: NASH WEEKS M.D. CLIA NUMBER [id number] CAP ACCREDITATION N O. [id number] COMPREHENSIVE METABOLIC [id number] 04:31:16 Test Item Value Reference Range Interpretation Comments GLUCOSE (test code = 92 MG/DL 70-99 2216) BUN (test code = 9 MG/DL 6-20 2207) CREATININE (test 0.75 MG/DL 0.60-1.30 code = 2214) eGFR (2020 CKD-EPI) 99 ML/MIN/1.73 >60 (test code = 90754) CALC BUN/CREAT (test 12 RATIO 6-28 code = 2235) SODIUM (test code = 141 MEQ/L 740-150 9983) POTASSIUM (test code 4.2 MEQ/L 3.5-5.4 = 2227) CHLORIDE (test code 101 MEQ/L 95-107 = 2215) CARBON DIOXIDE (test 26 MEQ/L 19-31 code = 2206) CALCIUM (test code = 12.0 MG/DL 8.5-10.5 H 2208) PROTEIN, TOTAL (test 8.7 G/DL 6.1-8.3 H code = 2229) ALBUMIN (test code = 4.4 G/DL 3.5-5.2 2200) CALC GLOBULIN (test 4.3 G/DL 1.9-3.7 H code = 2240) CALC A/G RATIO (test 1.0 RATIO 1.0-2.6 code = 2234) BILIRUBIN, TOTAL 0.3 MG/DL See_Comment [Automated message] (test code = 2207) The syste m which generated this result transmit kuldip reference range : <=1.2. The refe rence range was not u sed to interpret th is result as normal/abnormal . ALKALINE PHOSPHATASE 92 U/L 40-118 (test code = 2204) AST (test code = 27 U/L 9-40 8) ALT (test code = 27 U/L 5-40 2218) CBC W/AUTO DIFF WITH [id number] 03:47:00 Test Item Value Reference Range Interpretation [...] RBCS 0.00 K/UL 0.00-0.11 (test code = 64387) CBC W/AUTO [id number] 00:00:00 Test Item Value Reference Range Interpretation [...] NUCLEATED RBCS (test code = 0.00 K/UL 48510) CBC W/AUTO [id number] 00:00:00 Test Item Value Reference Range Interpretation [...] NUCLEATED RBCS (test code = 0.00 K/UL 28176) COMPREHENSIVE METABOLIC [id number] 00:00:00 Test Item Value Reference Range Interpretation Comments GLUCOSE (test code = 2217) 92 MG/DL BUN (test code = 2208) 9 MG/DL CREATININE (test code = 2214) 0.75 MG/DL eGFR (2020 CKD-EPI) (test code 99 ML/MIN/1.73 = 16537) CALC BUN/CREAT (test code = 12 RATIO 223) SODIUM (test code = 2231) 141 MEQ/L POTASSIUM (test code = 2228) 4.2 MEQ/L CHLORIDE (test code = 2215) 101 MEQ/L CARBON DIOXIDE (test code = 26 MEQ/L 2205) CALCIUM (test code = 2209) 12.0 MG/DL PROTEIN, TOTAL (test code = 8.7 G/DL 2228) ALBUMIN (test code = 2201) 4.4 G/DL CALC GLOBULIN (test code = 4.3 G/DL 2239) CALC A/G RATIO (test code = 1.0 RATIO 2233) BILIRUBIN, TOTAL (test code = 0.3 MG/DL 2207) ALKALINE PHOSPHATASE (test 92 U/L code = 2204) AST (test code = 2218) 27 U/L ALT (test code = 2219) 27 U/L [id number] 00:00:00 Test Item Value Reference Range Interpretation Comments TSH, THIRD GENERATION (test code 0.436 UIU/ML = 2821) [id number] 00:00:00 Test Item Value Reference Range Interpretation Comments TSH, THIRD GENERATION (test code 0.436 UIU/ML = 2821) CBC W/AUTO [id number] 00:00:00 Test Item Value Reference Range Interpretation [...] NUCLEATED RBCS (test code = 0.00 K/UL 14238) CBC W/AUTO [id number] 00:00:00 Test Item Value Reference Range Interpretation [...] NUCLEATED RBCS (test code = 0.00 K/UL 35883) CBC W/AUTO [id number] 00:00:00 Test Item Value Reference Range Interpretation [...] NUCLEATED RBCS (test code = 0.00 K/UL 40240) COMPREHENSIVE METABOLIC [id number] 00:00:00 Test Item Value Reference Range Interpretation Comments GLUCOSE (test code = 2217) 92 MG/DL BUN (test code = 2208) 9 MG/DL CREATININE (test code = 2214) 0.75 MG/DL eGFR (2020 CKD-EPI) (test code 99 ML/MIN/1.73 = 31999) CALC BUN/CREAT (test code = 12 RATIO [...] code = 2219) 27 U/L COMPREHENSIVE METABOLIC [id number] 00:00:00 Test Item Value Reference Range Interpretation Comments GLUCOSE (test code = 2217) 92 MG/DL BUN (test code = 2208) 9 MG/DL CREATININE (test code = 2214) 0.75 MG/DL eGFR (2020 CKD-EPI) (test code 99 ML/MIN/1.73 = 34158) CALC BUN/CREAT (test code = 12 RATIO [...] CALC GLOBULIN (test code = 4.3 G/DL 2239) CALC A/G RATIO (test code = 1.0 RATIO 2233) BILIRUBIN, TOTAL (test code = 0.3 MG/DL 2206) ALKALINE PHOSPHATASE (test 92 U/L code = 220) AST (test code = 2218) 27 U/L ALT (test code = 2219) 27 U/L [id number] 00:00:00 Test Item Value Reference Range Interpretation Comments TSH, THIRD GENERATION (test code 0.436 UIU/ML = 2821) [id number] 00:00:00 Test Item Value Reference Range Interpretation Comments TSH, THIRD GENERATION (test code 0.436 UIU/ML = 2821) [id number] 00:00:00 Test Item Value Reference Range Interpretation Comments TSH, THIRD GENERATION (test code 0.436 UIU/ML = 2821) CBC W/AUTO [id number] 00:00:00 Test Item Value Reference Range Interpretation [...] NUCLEATED RBCS (test code = 0.00 K/UL 46536) CBC W/AUTO [id number] 00:00:00 Test Item Value Reference Range Interpretation [...] NUCLEATED RBCS (test code = 0.00 K/UL 35923) CBC W/AUTO [id number] 00:00:00 Test Item Value Reference Range Interpretation [...] NUCLEATED RBCS (test code = 0.00 K/UL 10774) COMPREHENSIVE METABOLIC [id number] 00:00:00 Test Item Value Reference Range Interpretation Comments GLUCOSE (test code = 2217) 92 MG/DL BUN (test code = 2208) 9 MG/DL CREATININE (test code = 2214) 0.75 MG/DL eGFR (2020 CKD-EPI) (test code 99 ML/MIN/1.73 = 43744) CALC BUN/CREAT (test code = 12 RATIO [...] code = 2219) 27 U/L COMPREHENSIVE METABOLIC [id number] 00:00:00 Test Item Value Reference Range Interpretation Comments GLUCOSE (test code = 2217) 92 MG/DL BUN (test code = 2208) 9 MG/DL CREATININE (test code = 2214) 0.75 MG/DL eGFR (2020 CKD-EPI) (test code 99 ML/MIN/1.73 = 87165) CALC BUN/CREAT (test code = 12 RATIO [...] ALT (test code = 2219) 27 U/L [id number] 00:00:00 Test Item Value Reference Range Interpretation Comments TSH, THIRD GENERATION (test code 0.436 UIU/ML = 2821) [id number] 00:00:00 Test Item Value Reference Range Interpretation Comments TSH, THIRD GENERATION (test code 0.436 UIU/ML = 2821) [id number] 00:00:00 Test Item Value Reference Range Interpretation Comments TSH, THIRD GENERATION (test code 0.436 UIU/ML = 2821) CULTURE, [id number] 09:02:35SPECIMEN NUMBER: [id number] CULTURE, URINE SPECIMEN NUMBER: [id number] SPECIMEN COMMENT: URINE SOURCE: URINE REPORT STATUS: FINAL FINAL REPORT: 10/02/2021 10-50,000 CFU/ML UROGENITAL [place] PRESENT NO COM MON PATHOGENS UNLESS OTHERWISE INDICATED, ALL TESTING PERFORMED [facility] [address] [place] [address] CHEMICAL LABORATORY ASSISTANT: NASH WEEKS M.D. [place] NUMBER [id number]. [id number] CULTURE, [id number] 00:00:00 Test Item Value Reference Range Interpretation Comments CULTURE, URINE (test SPECIMEN NUMBER: code = 09883) [id number] CULTURE, [id number] 00:00:00 Test Item Value Reference Range Interpretation Comments CULTURE, URINE (test SPECIMEN NUMBER: code = 76624) [id number] CULTURE, [id number] 00:00:00 Test Item Value Reference Range Interpretation Comments CULTURE, URINE (test SPECIMEN NUMBER: code = 21852) [id number] CULTURE, [id number] 00:00:00 Test Item Value Reference Range Interpretation Comments CULTURE, URINE (test SPECIMEN NUMBER: code = 29171) [id number] CULTURE, [id number] 00:00:00 Test Item Value Reference Range Interpretation Comments CULTURE, URINE (test SPECIMEN NUMBER: code = 04665) [id number] COMP. METABOLIC PANEL (13429)2021-09-24 17:17:37 Test Item Value Reference Range Interpretation Comments NA (test code = 141 mmol/L 135-145 3823922770) K (test code = 4.2 mmol/L 3.5-5.0 3090352311) CL (test code = 100 mmol/L 98-108 4131004432) CO2 TOTAL (test code = 28 mmol/L 23-31 3928063766) AGAP (test code = 2-16 4270484131) BUN (test code = 9 mg/dL 7-23 4811710464) GLUCOSE (test code = 106 mg/dL 70-110 3567007803) CREATININE (test code = 0.72 mg/dL 0.50-1.04 5951331852) TOTAL BILI (test code = 0.6 mg/dL 0.1-1.4 6936981864) CALCIUM (test code = 11.7 mg/dL 8.6-10.6 H 5207492511) T PROTEIN (test code = 9.3 g/dL 6.3-8.2 H 9382374680) ALBUMIN (test code = 4.5 g/dL 3.5-5.0 8193122508) ALK PHOS (test code = 100 U/L 34-122 5045454965) ALTv (test code = 26 U/L 5-35 1742-6) AST(SGOT) (test code = 29 U/L 13-40 7914703579) eGFR (test code = mL/min/1.73m2 2047365411) YANIRA (test code = YANIRA) Association of [...] tests). Lab Interpretation Abnormal (test code = 47943-3) [facility] 17:17:37 Test Item Value Reference Range Interpretation Comments LIPASE (test code = 2836251984) 139 U/L 0-220 Lab Interpretation (test code = Normal 64553-3) [facility] PART[facility] THRMPLAS [id number] 17:17:17 Test Item Value Reference Range Interpretation Comments APTT Patient (test See_Comment [Automat ed code = 3173-2) message] The system which generated this result transmitted reference range : 23 - 38 Seconds . The reference range was not used to interpr et this result as normal/abnormal . YANIRA (test code = YANIRA) The [facility] patient population mean normal value for aPTT is 30 seconds. Lab Interpretation Normal (test code = 69503-7) [facility] ResourcesPROT[facility]OM[facility] TIME / [id number] 17:15:16 Test Item Value Reference Range Interpretation Comments PROTIME PATIENT (test See_Comment [Auto mated message] code = 5964-2) The system [employer] generated this result transmitted ref erence range: 12.0 - 1 4.7 Seconds. The re ference range was not u sed to interpret this result as normal/abnor mal. INR (test code = 6301-6) Nor mal INR <1.1; Warfarin Therap eutic range 2.0 to 3. 0 or 2.5 to 3.5, dep ending upon the indica tions. Lab Interpretation (test Normal code = 21902-7) [facility] WITH [id number] 17:04:54 Test Item Value Reference Range Interpretation Comments WBC (test code = See_Comment [Automated message] 6690-2) The system [employer] generated this result transmitted ref erence range: 4.30 - 1 1.10 10*3/?L. The re ference range was not u sed to interpret this result as normal/abnor mal. RBC (test code = See_Comment [Automated message] 789-8) The system [employer] generated this result transmitted ref erence range: [...] RDW-SD (test code 41.5 fL 39.0-49.9 = 59729-6) RDW-CV (test code 12.8 % 12.0-15.5 = 788-0) PLT (test code = See_Comment [Automated message] 777-3) The system whic h generated this result transmitted ref erence range: 166 - 35 8 10*3/?L. The re ference range was not u sed to interpret this result as normal/abnor mal. MPV (test code = 10.0 fL 9.5-12.9 82157-5) NRBC/100 WBC (test See_Comment [Automat ed message] code = 8745270737) The syste m which generated this result transmitted ref erence range: 0.0 - 10 .0 /100 WBCs. The refer ence range was not u sed to interpret this result as normal/abnor mal. NRBC x10^3 (test <0.01 See_Comment [Automated message] code = 1109432706) The syste m which generated this result transmitted ref erence range: 10*3/?L. The reference range was not used to interpr et this result as normal/abnormal . GRAN MAT (NEUT) % 52.2 % (test code = 770-8) IMM GRAN % (test 0.30 % code = 7178430947) LYMPH % (test code 37.7 % = 736-9) MONO % (test code 7.3 % = 5905-5) EOS % (test code = 2.2 % 713-8) BASO % (test code 0.3 % = 706-2) GRAN MAT 3.14 10*3/uL 1.88-7.09 x10^3(ANC) (test code = 4529420164) IMM GRAN x10^3 <0.03 0.00-0.06 (test code = 8865691937) LYMPH x10^3 (test 2.27 10*3/uL 1.32-3.29 code = 731-0) MONO x10^3 (test 0.44 10*3/uL 0.33-0.92 code = 742-7) EOS x10^3 (test 0.13 10*3/uL 0.03-0.39 code = 711-2) BASO x10^3 (test <0.03 0.01-0.07 code = 704-7) [facility] [id number] 03:32:34 Test Item Value Reference Range Interpretation Comments HEPATITIS A IgM (test NON-REACTIVE NON-REACTIVE code = 08966) HEPATITIS B CORE IgM NON-REACTIVE NON-REACTIVE (test code = 4644) HEPATITIS B SURF AG NON-REACTIVE NON-REACTIVE (test code = 2739) HEPATITIS C ANTIBODY NON-REACTIVE NON-REACTIVE (test code = 4675) INTERPRETATION (NOTE) Hepatitis A HEPATITIS A: (test code sero logy shows no = 2552) evidence of acu te hepatitis A. INTERPRETATION (NOTE) Hepatitis B HEPATITIS B: (test code sero logy shows no = 75452) evidence of acu te hepatitis B and no indication of exposure to hepatitis B vir us in the previous oly eight months. INTERPRETATION (NOTE) Hepatitis C HEPATITIS C: (test code sero logy shows no = 10856) evidence of exposure to hepatitisC viru s at this time. I t can take up to 12 months after exposure tothe hepatitis C vir us for antibodies to become detectab le in the blood in certain patient s. LIPID [id number] 01:28:17 Test Item Value Reference Range Interpretation [...] MOREINFORMATION , SEE CLIENT ANNOUNCE MENT AT [email or web address] RISK RATIO LDL/HDL 3.16 RATIO <3.22 (test code = 2238) COMPREHENSIVE METABOLIC [id number] 01:28:17 Test Item Value Reference Range Interpretation Comments GLUCOSE (test code = 68 MG/DL 70-99 L 2216) BUN (test code = 7 MG/DL 6-20 2207) CREATININE (test 0.70 MG/DL 0.60-1.30 code = 221) eGFR (2020 CKD-EPI) 108 >60 (test code = 35288) ML/MIN/1.73 CALC BUN/CREAT (test 10 RATIO 6-28 code = 2235) SODIUM (test code = 138 MEQ/L 031-838 5987) POTASSIUM (test code 4.0 MEQ/L 3.5-5.4 = 2227) CHLORIDE (test code 98 MEQ/L 95-107 = 2214) CARBON DIOXIDE (test 24 MEQ/L 19-31 code = 220) CALCIUM (test code = 10.8 MG/DL 8.5-10.5 H 2208) PROTEIN, TOTAL (test 8.5 G/DL 6.1-8.3 H code = 2228) ALBUMIN (test code = 4.1 G/DL 3.5-5.2 2200) CALC GLOBULIN (test 4.4 G/DL 1.9-3.7 H code = 2240) CALC A/G RATIO (test 0.9 RATIO 1.0-2.6 L code = 223) BILIRUBIN, TOTAL 0.2 MG/DL See_Comment [Automated message] (test code = 220) The syste m which generated this result transmit kuldip reference range : <=1.2. The refe rence range was not u sed to interpret th is result as normal/abnormal . ALKALINE PHOSPHATASE 117 U/L 40-118 (test code = 220) AST (test code = 16 U/L 9-40 2217) ALT (test code = 16 U/L 5-40 2218) TSH, THIRD [id number] 00:54:02 Test Item Value Reference Range Interpretation Comments TSH, THIRD 0.553 UIU/ML 0.400-4.100 UNLESS OTHERWI SE GENERATION (test INDICATED, ALL TESTING code = 2821) PERFORMED [facility] [place] [address] [facility] [place] [address] [facility] DIRECTOR: NASH WEEKS M.D. CLIA NUMBER [id number] [facility] ACCREDITATION N O. [id number] LIPID [id number] 00:00:00 Test Item Value Reference Range Interpretation Comments CHOLESTEROL (test code = 2210) 213 MG/DL TRIGLYCERIDES (test code = 2232) 200 MG/DL HDL CHOLESTEROL (test code = 2220) 43 MG/DL CALC LDL CHOL (test code = 2237) 136 MG/DL RISK RATIO LDL/HDL (test code = 3.16 RATIO 2238) COMPREHENSIVE METABOLIC [id number] 00:00:00 Test Item Value Reference Range Interpretation Comments GLUCOSE (test code = 2217) 68 MG/DL BUN (test code = 2208) 7 MG/DL CREATININE (test code = 2214) 0.70 MG/DL eGFR (2020 CKD-EPI) (test 108 ML/MIN/1.73 code = 30160) CALC BUN/CREAT (test code = 10 RATIO [...] = 0.2 MG/DL 220) ALKALINE PHOSPHATASE (test 117 U/L code = 2204) AST (test code = 2218) 16 U/L ALT (test code = 2219) 16 U/L ACUTE HEPATITIS [id number] 00:00:00 Test Item Value Reference Range Interpretation Comments HEPATITIS A IgM (test code = NON-REACTIVE 96969) HEPATITIS B CORE IgM (test code NON-REACTIVE = 8244) HEPATITIS B SURF AG (test code = NON-REACTIVE 2176) HEPATITIS C ANTIBODY (test code NON-REACTIVE = 3628) INTERPRETATION HEPATITIS A: (NOTE) (test code = 2552) INTERPRETATION HEPATITIS B: (NOTE) (test code = 72872) INTERPRETATION HEPATITIS C: (NOTE) (test code = 83154) [id number] 00:00:00 Test Item Value Reference Range Interpretation Comments TSH, THIRD GENERATION (test code 0.553 UIU/ML = 2821) [id number] 00:00:00 Test Item Value Reference Range Interpretation Comments TSH, THIRD GENERATION (test code 0.553 UIU/ML = 2821) LIPID [id number] 00:00:00 Test Item Value Reference Range Interpretation Comments CHOLESTEROL (test code = 2210) 213 MG/DL TRIGLYCERIDES (test code = 2232) 200 MG/DL HDL CHOLESTEROL (test code = 2220) 43 MG/DL CALC LDL CHOL (test code = 2237) 136 MG/DL RISK RATIO LDL/HDL (test code = 3.16 RATIO 2238) COMPREHENSIVE METABOLIC [id number] 00:00:00 Test Item Value Reference Range Interpretation Comments GLUCOSE (test code = 2217) 68 MG/DL BUN (test code = 2208) 7 MG/DL CREATININE (test code = 2214) 0.70 MG/DL eGFR (2020 CKD-EPI) (test 108 ML/MIN/1.73 code = 98554) CALC BUN/CREAT (test code = 10 RATIO [...] code = 2219) 16 U/L ACUTE HEPATITIS [id number] 00:00:00 Test Item Value Reference Range Interpretation Comments HEPATITIS A IgM (test code = NON-REACTIVE 59357) HEPATITIS B CORE IgM (test code NON-REACTIVE = 7484) HEPATITIS B SURF AG (test code = NON-REACTIVE 7331) HEPATITIS C ANTIBODY (test code NON-REACTIVE = 4675) INTERPRETATION HEPATITIS A: (NOTE) (test code = 2552) INTERPRETATION HEPATITIS B: (NOTE) (test code = 04934) INTERPRETATION HEPATITIS C: (NOTE) (test code = 64816) [id number] 00:00:00 Test Item Value Reference Range Interpretation Comments TSH, THIRD GENERATION (test code 0.553 UIU/ML = 2821) [id number] 00:00:00 Test Item Value Reference Range Interpretation Comments TSH, THIRD GENERATION (test code 0.553 UIU/ML = 2821) LIPID [id number] 00:00:00 Test Item Value Reference Range Interpretation Comments CHOLESTEROL (test code = 2210) 213 MG/DL TRIGLYCERIDES (test code = 2232) 200 MG/DL HDL CHOLESTEROL (test code = 2220) 43 MG/DL CALC LDL CHOL (test code = 2237) 136 MG/DL RISK RATIO LDL/HDL (test code = 3.16 RATIO 2238) LIPID [id number] 00:00:00 Test Item Value Reference Range Interpretation Comments CHOLESTEROL (test code = 2210) 213 MG/DL TRIGLYCERIDES (test code = 2232) 200 MG/DL HDL CHOLESTEROL (test code = 2220) 43 MG/DL CALC LDL CHOL (test code = 2237) 136 MG/DL RISK RATIO LDL/HDL (test code = 3.16 RATIO 2238) LIPID [id number] 00:00:00 Test Item Value Reference Range Interpretation Comments CHOLESTEROL (test code = 2210) 213 MG/DL TRIGLYCERIDES (test code = 2232) 200 MG/DL HDL CHOLESTEROL (test code = 2220) 43 MG/DL CALC LDL CHOL (test code = 2237) 136 MG/DL RISK RATIO LDL/HDL (test code = 3.16 RATIO 2238) COMPREHENSIVE METABOLIC [id number] 00:00:00 Test Item Value Reference Range Interpretation Comments GLUCOSE (test code = 2217) 68 MG/DL BUN (test code = 2208) 7 MG/DL CREATININE (test code = 2214) 0.70 MG/DL eGFR (2020 CKD-EPI) (test 108 ML/MIN/1.73 code = 53510) CALC BUN/CREAT (test code = 10 RATIO 2235) SODIUM (test code = 2231) 138 MEQ/L POTASSIUM (test code = 2228) 4.0 MEQ/L CHLORIDE (test code = 2215) 98 MEQ/L CARBON DIOXIDE (test code = 24 MEQ/L 2206) CALCIUM (test code = 2209) 10.8 MG/DL PROTEIN, TOTAL (test code = 8.5 G/DL 222) ALBUMIN (test code = 2201) 4.1 G/DL CALC GLOBULIN (test code = 4.4 G/DL 2240) CALC A/G RATIO (test code = 0.9 RATIO 2234) BILIRUBIN, TOTAL (test code = 0.2 MG/DL 2206) ALKALINE PHOSPHATASE (test 117 U/L code = 2204) AST (test code = 2218) 16 U/L ALT (test code = 2219) 16 U/L COMPREHENSIVE METABOLIC [id number] 00:00:00 Test Item Value Reference Range Interpretation Comments GLUCOSE (test code = 2217) 68 MG/DL BUN (test code = 2208) 7 MG/DL CREATININE (test code = 2214) 0.70 MG/DL eGFR (2020 CKD-EPI) (test 108 ML/MIN/1.73 code = 81655) CALC BUN/CREAT (test code = 10 RATIO 2235) SODIUM (test code = 2231) 138 MEQ/L POTASSIUM (test code = 2228) 4.0 MEQ/L CHLORIDE (test code = 2215) 98 MEQ/L CARBON DIOXIDE (test code = 24 MEQ/L 2206) CALCIUM (test code = 2209) 10.8 MG/DL [...] code = 2219) 16 U/L COMPREHENSIVE METABOLIC [id number] 00:00:00 Test Item Value Reference Range Interpretation Comments GLUCOSE (test code = 2217) 68 MG/DL BUN (test code = 2208) 7 MG/DL CREATININE (test code = 2214) 0.70 MG/DL eGFR (2020 CKD-EPI) (test 108 ML/MIN/1.73 code = 00337) CALC BUN/CREAT (test code = 10 RATIO [...] code = 2219) 16 U/L ACUTE HEPATITIS [id number] 00:00:00 Test Item Value Reference Range Interpretation Comments HEPATITIS A IgM (test code = NON-REACTIVE 01796) HEPATITIS B CORE IgM (test code NON-REACTIVE = 4644) HEPATITIS B SURF AG (test code = NON-REACTIVE 2739) HEPATITIS C ANTIBODY (test code NON-REACTIVE = 4675) INTERPRETATION HEPATITIS A: (NOTE) (test code = 2552) INTERPRETATION HEPATITIS B: (NOTE) (test code = 41895) INTERPRETATION HEPATITIS C: (NOTE) (test code = 88076) ACUTE HEPATITIS [id number] 00:00:00 Test Item Value Reference Range Interpretation Comments HEPATITIS A IgM (test code = NON-REACTIVE 25607) HEPATITIS B CORE IgM (test code NON-REACTIVE = 4644) HEPATITIS B SURF AG (test code = NON-REACTIVE 2739) HEPATITIS C ANTIBODY (test code NON-REACTIVE = 4675) INTERPRETATION HEPATITIS A: (NOTE) (test code = 2552) INTERPRETATION HEPATITIS B: (NOTE) (test code = 71229) INTERPRETATION HEPATITIS C: (NOTE) (test code = 34049) [id number] 00:00:00 Test Item Value Reference Range Interpretation Comments TSH, THIRD GENERATION (test code 0.553 UIU/ML = 2821) [id number] 00:00:00 Test Item Value Reference Range Interpretation Comments TSH, THIRD GENERATION (test code 0.553 UIU/ML = 2821) [id number] 00:00:00 Test Item Value Reference Range Interpretation Comments TSH, THIRD GENERATION (test code 0.553 UIU/ML = 2821) ACUTE HEPATITIS [id number] 00:00:00 Test Item Value Reference Range Interpretation Comments HEPATITIS A IgM (test code = NON-REACTIVE 96588) HEPATITIS B CORE IgM (test code NON-REACTIVE = 4644) HEPATITIS B SURF AG (test code = NON-REACTIVE 2739) HEPATITIS C ANTIBODY (test code NON-REACTIVE = 4675) INTERPRETATION HEPATITIS A: (NOTE) (test code = 2552) INTERPRETATION HEPATITIS B: (NOTE) (test code = 26519) INTERPRETATION HEPATITIS C: (NOTE) (test code = 16429) [id number] 00:00:00 Test Item Value Reference Range Interpretation Comments TSH, THIRD GENERATION (test code 0.553 UIU/ML = 2821) [id number] 00:00:00 Test Item Value Reference Range Interpretation Comments TSH, THIRD GENERATION (test code 0.553 UIU/ML = 2821) LIPID [id number] 00:00:00 Test Item Value Reference Range Interpretation Comments CHOLESTEROL (test code = 2210) 213 MG/DL TRIGLYCERIDES (test code = 2232) 200 MG/DL HDL CHOLESTEROL (test code = 2220) 43 MG/DL CALC LDL CHOL (test code = 2237) 136 MG/DL RISK RATIO LDL/HDL (test code = 3.16 RATIO 2238) LIPID [id number] 00:00:00 Test Item Value Reference Range Interpretation Comments CHOLESTEROL (test code = 2210) 213 MG/DL TRIGLYCERIDES (test code = 2232) 200 MG/DL HDL CHOLESTEROL (test code = 2220) 43 MG/DL CALC LDL CHOL (test code = 2237) 136 MG/DL RISK RATIO LDL/HDL (test code = 3.16 RATIO 2238) COMPREHENSIVE METABOLIC [id number] 00:00:00 Test Item Value Reference Range Interpretation Comments GLUCOSE (test code = 2217) 68 MG/DL BUN (test code = 2208) 7 MG/DL CREATININE (test code = 2214) 0.70 MG/DL eGFR (2020 CKD-EPI) (test 108 ML/MIN/1.73 code = 53458) CALC BUN/CREAT (test code = 10 RATIO 2235) SODIUM (test code = 2231) 138 MEQ/L POTASSIUM (test code = 2228) 4.0 MEQ/L CHLORIDE (test code = 2215) 98 MEQ/L CARBON DIOXIDE (test code = 24 MEQ/L 2206) CALCIUM (test code = 2209) 10.8 MG/DL [...] code = 2219) 16 U/L COMPREHENSIVE METABOLIC [id number] 00:00:00 Test Item Value Reference Range Interpretation Comments GLUCOSE (test code = 2217) 68 MG/DL BUN (test code = 2208) 7 MG/DL CREATININE (test code = 2214) 0.70 MG/DL eGFR (2020 CKD-EPI) (test 108 ML/MIN/1.73 code = 11703) CALC BUN/CREAT (test code = 10 RATIO [...] code = 2219) 16 U/L ACUTE HEPATITIS [id number] 00:00:00 Test Item Value Reference Range Interpretation Comments HEPATITIS A IgM (test code = NON-REACTIVE 11389) HEPATITIS B CORE IgM (test code NON-REACTIVE = 4644) HEPATITIS B SURF AG (test code = NON-REACTIVE 2739) HEPATITIS C ANTIBODY (test code NON-REACTIVE = 4675) INTERPRETATION HEPATITIS A: (NOTE) (test code = 2552) INTERPRETATION HEPATITIS B: (NOTE) (test code = 44670) INTERPRETATION HEPATITIS C: (NOTE) (test code = 38246) ACUTE HEPATITIS [id number] 00:00:00 Test Item Value Reference Range Interpretation Comments HEPATITIS A IgM (test code = NON-REACTIVE 01969) HEPATITIS B CORE IgM (test code NON-REACTIVE = 4644) HEPATITIS B SURF AG (test code = NON-REACTIVE 2739) HEPATITIS C ANTIBODY (test code NON-REACTIVE = 4675) INTERPRETATION HEPATITIS A: (NOTE) (test code = 2552) INTERPRETATION HEPATITIS B: (NOTE) (test code = 10432) INTERPRETATION HEPATITIS C: (NOTE) (test code = 86145) [id number] 00:00:00 Test Item Value Reference Range Interpretation Comments TSH, THIRD GENERATION (test code 0.553 UIU/ML = 2821) [id number] 00:00:00 Test Item Value Reference Range Interpretation Comments TSH, THIRD GENERATION (test code 0.553 UIU/ML = 2821) [id number] 00:00:00 Test Item Value Reference Range Interpretation Comments TSH, THIRD GENERATION (test code 0.553 UIU/ML = 2821) CBC W/AUTO DIFF WITH [id number] 21:31:09 Test Item Value Reference Range Interpretation [...] RBCS 0.00 K/UL 0.00-0.11 (test code = 72463) CBC W/AUTO [id number] 00:00:00 Test Item Value Reference Range Interpretation [...] NUCLEATED RBCS (test code = 0.00 K/UL 77288) CBC W/AUTO [id number] 00:00:00 Test Item Value Reference Range Interpretation [...] NUCLEATED RBCS (test code = 0.00 K/UL 42343) CBC W/AUTO [id number] 00:00:00 Test Item Value Reference Range Interpretation [...] NUCLEATED RBCS (test code = 0.00 K/UL 13354) CBC W/AUTO [id number] 00:00:00 Test Item Value Reference Range Interpretation [...] NUCLEATED RBCS (test code = 0.00 K/UL 82301) CBC W/AUTO [id number] 00:00:00 Test Item Value Reference Range Interpretation [...] NUCLEATED RBCS (test code = 0.00 K/UL 10051) CBC W/AUTO [id number] 00:00:00 Test Item Value Reference Range Interpretation [...] NUCLEATED RBCS (test code = 0.00 K/UL 25237) CBC W/AUTO [id number] 00:00:00 Test Item Value Reference Range Interpretation [...] NUCLEATED RBCS (test code = 0.00 K/UL 46574) CBC W/AUTO [id number] 00:00:00 Test Item Value Reference Range Interpretation [...] NUCLEATED RBCS (test code = 0.00 K/UL 74871) CBC W/AUTO [id number] 00:00:00 Test Item Value Reference Range Interpretation [...] NUCLEATED RBCS (test code = 0.00 K/UL 16648) CBC W/AUTO [id number] 00:00:00 Test Item Value Reference Range Interpretation [...] NUCLEATED RBCS (test code = 0.00 K/UL 93908) CBC W/AUTO [id number] 00:00:00 Test Item Value Reference Range Interpretation [...] NUCLEATED RBCS (test code = 0.00 K/UL 68359) CBC W/AUTO [id number] 00:00:00 Test Item Value Reference Range Interpretation [...] NUCLEATED RBCS (test code = 0.00 K/UL 40668) HEMOGLOBIN [id number] 03:18:19 Test Item Value Reference Range Interpretation Comments HEMOGLOBIN A1c (test 5.8 % 4.2-5.6 H UNLES S OTHERWISE code = 35394) INDICATED, ALL TESTING PERFORMED [facility] [address] [place] [id number] SHELLY BRITNEY DIRECTOR: NASH WEEKS M.D. CLIA NUMBER [id number] CAP ACCREDITATION N O. [id number] HIV 1/2 4TH GEN, RFLX [id number] 03:04:30 Test Item Value Reference Range Interpretation Comments HIV 1/2 4TH GEN, RFLX CONF (test NON-REACTIVE NON-REACTIVE code = 3514) HIV AB/AG COMBO RFLX [id number] 00:00:00 Test Item Value Reference Range Interpretation Comments HIV 1/2 4TH GEN, RFLX CONF (test NON-REACTIVE code = 3514) HEMOGLOBIN [id number] 00:00:00 Test Item Value Reference Range Interpretation Comments HEMOGLOBIN A1c (test code = 72203) 5.8 % HEMOGLOBIN [id number] 00:00:00 Test Item Value Reference Range Interpretation Comments HEMOGLOBIN A1c (test code = 12741) 5.8 % HIV AB/AG COMBO RFLX [id number] 00:00:00 Test Item Value Reference Range Interpretation Comments HIV 1/2 4TH GEN, RFLX CONF (test NON-REACTIVE code = 3514) HIV AB/AG COMBO RFLX [id number] 00:00:00 Test Item Value Reference Range Interpretation Comments HIV 1/2 4TH GEN, RFLX CONF (test NON-REACTIVE code = 3514) HEMOGLOBIN [id number] 00:00:00 Test Item Value Reference Range Interpretation Comments HEMOGLOBIN A1c (test code = 48185) 5.8 % HEMOGLOBIN [id number] 00:00:00 Test Item Value Reference Range Interpretation Comments HEMOGLOBIN A1c (test code = 21068) 5.8 % HEMOGLOBIN [id number] 00:00:00 Test Item Value Reference Range Interpretation Comments HEMOGLOBIN A1c (test code = 14922) 5.8 % HIV AB/AG COMBO RFLX [id number] 00:00:00 Test Item Value Reference Range Interpretation Comments HIV 1/2 4TH GEN, RFLX CONF (test NON-REACTIVE code = 3514) HIV AB/AG COMBO RFLX [id number] 00:00:00 Test Item Value Reference Range Interpretation Comments HIV 1/2 4TH GEN, RFLX CONF (test NON-REACTIVE code = 3514) HEMOGLOBIN [id number] 00:00:00 Test Item Value Reference Range Interpretation Comments HEMOGLOBIN A1c (test code = 78325) 5.8 % HEMOGLOBIN [id number] 00:00:00 Test Item Value Reference Range Interpretation Comments HEMOGLOBIN A1c (test code = 72051) 5.8 % HEMOGLOBIN [id number] 00:00:00 Test Item Value Reference Range Interpretation Comments HEMOGLOBIN A1c (test code = 72574) 5.8 % HEMOGLOBIN [id number] 00:00:00 Test Item Value Reference Range Interpretation Comments HEMOGLOBIN A1c (test code = 41611) 5.8 % HIV AB/AG COMBO RFLX [id number] 00:00:00 Test Item Value Reference Range Interpretation Comments HIV 1/2 4TH GEN, RFLX CONF (test NON-REACTIVE code = 3514) HIV AB/AG COMBO RFLX [id number] 00:00:00 Test Item Value Reference Range Interpretation Comments HIV 1/2 4TH GEN, RFLX CONF (test NON-REACTIVE code = 3514) HEMOGLOBIN [id number] 00:00:00 Test Item Value Reference Range Interpretation Comments HEMOGLOBIN A1c (test code = 11149) 5.8 % HEMOGLOBIN [id number] 00:00:00 Test Item Value Reference Range Interpretation Comments HEMOGLOBIN A1c (test code = 47897) 5.8 % HEMOGLOBIN [id number] 00:00:00 Test Item Value Reference Range Interpretation Comments HEMOGLOBIN A1c (test code = 04640) 5.8 % COMP. METABOLIC PANEL (29608)2021-04-10 21:13:43 Test Item Value Reference Range Interpretation Comments NA (test code = 136 mmol/L 135-145 0929122389) K (test code = 4.3 mmol/L 3.5-5.0 7516255545) CL (test code = 96 mmol/L 98-108 L 5143324455) CO2 TOTAL (test code = 28 mmol/L 23-31 8893153489) AGAP (test code = 2-16 8107791997) BUN (test code = 9 mg/dL 7-23 6681174796) GLUCOSE (test code = 102 mg/dL 70-110 1108902525) CREATININE (test code = 0.69 mg/dL 0.50-1.04 4427298446) TOTAL BILI (test code = 0.4 mg/dL 0.1-1.6 9745977423) CALCIUM (test code = 11.0 mg/dL 8.6-10.6 H 6564285910) T PROTEIN (test code = 9.2 g/dL 6.3-8.2 H 0104571910) ALBUMIN (test code = 4.5 g/dL 3.5-5.0 7296155269) ALK PHOS (test code = 113 U/L 34-122 0152741920) ALTv (test code = 22 U/L 5-35 2-6) AST(SGOT) (test code = 25 U/L 13-40 4542400348) eGFR (test code = mL/min/1.73m2 2959846511) YANIRA (test code = YANIRA) Association of [...] tests). Lab Interpretation Abnormal (test code = 45865-1) [facility] [id number] 21:13:17 Test Item Value Reference Range Interpretation Comments CK (test code = 5007871640) 118 U/L 33-194 Lab Interpretation (test code = Normal 45294-7) [facility] WITH [id number] 21:01:01 Test Item Value Reference Range Interpretation Comments WBC (test code = See_Comment [Automated message] 6690-2) The system [employer] generated this result transmitted ref erence range: 4.30 - 1 1.10 10*3/?L. The re ference range was not u sed to interpret this result as normal/abnor mal. RBC (test code = See_Comment [Automated message] 789-8) The system [employer] generated this result transmitted ref erence range: [...] RDW-SD (test code 40.6 fL 39.0-49.9 = 63614-8) RDW-CV (test code 12.6 % 12.0-15.5 = 788-0) PLT (test code = See_Comment [Automated message] 777-3) The system [employer] generated this result transmitted ref erence range: 166 - 35 8 10*3/?L. The re ference range was not u sed to interpret this result as normal/abnor mal. MPV (test code = 9.8 fL 9.5-12.9 90423-3) NRBC/100 WBC (test See_Comment [Automat ed message] code = 7307919942) The syste [employer] which generated this result transmitted ref erence range: 0.0 - 10 .0 /100 WBCs. The refer ence range was not u sed to interpret this result as normal/abnor mal. NRBC x10^3 (test <0.01 See_Comment [Automated message] code = 7465625586) The syste m which generated this result transmitted ref erence range: 10*3/?L. The reference range was not used to interpr et this result as normal/abnormal . GRAN MAT (NEUT) % 61.0 % (test code = 770-8) IMM GRAN % (test 0.20 % code = 7044429524) LYMPH % (test code 30.1 % = 736-9) MONO % (test code 6.4 % = 5905-5) EOS % (test code = 2.1 % 713-8) BASO % (test code 0.2 % = 706-2) GRAN MAT 5.35 10*3/uL 1.88-7.09 x10^3(ANC) (test code = 6511151166) IMM GRAN x10^3 <0.03 0.00-0.06 (test code = 3815856405) LYMPH x10^3 (test 2.64 10*3/uL 1.32-3.29 code = 731-0) MONO x10^3 (test 0.56 10*3/uL 0.33-0.92 code = 742-7) EOS x10^3 (test 0.18 10*3/uL 0.03-0.39 code = 711-2) BASO x10^3 (test <0.03 0.01-0.07 code = 704-7) [facility] [id number] 20:49:00 Test Item Value Reference Range Interpretation Comments POCT PREG (test code = 1605) Negative On board controls acceptable with Present C Line (test code = 3574) POCT PREG LOT # (test code = HCG [id number]) POCT PREG TEST DATE (test 05/23/2022 code = 3576) Lab Interpretation (test code = Normal 73784-5) [facility] ResourcesTROPONIN [id number] 01:38:03 Test Item Value Reference Range Interpretation Comments TROPONIN I (test 0.002 ng/mL See_Comment [Automated code = 5067081340) message] The system which generated this result [...] ? Lab Interpretation Normal (test code = 18119-9) [facility]. METABOLIC PANEL (79227)2020-09-11 01:38:03 Test Item Value Reference Range Interpretation Comments NA (test code = 141 mmol/L 135-145 0945997705) K (test code = 3.9 mmol/L 3.5-5.0 9642760791) CL (test code = 103 mmol/L 98-108 5158634851) CO2 TOTAL (test code = 27 mmol/L 23-31 5562796381) AGAP (test code = 2-16 2993153501) BUN (test code = 13 mg/dL 7-23 6561294445) GLUCOSE (test code = 131 mg/dL 70-110 H 4990362070) CREATININE (test code = 0.76 mg/dL 0.50-1.04 8442479860) TOTAL BILI (test code = 0.4 mg/dL 0.1-1.6 2028529658) CALCIUM (test code = 11.4 mg/dL 8.6-10.6 H 2772226900) T PROTEIN (test code = 9.5 g/dL 6.3-8.2 H 2069007222) ALBUMIN (test code = 4.6 g/dL 3.5-5.0 1995472839) ALK PHOS (test code = 108 U/L 34-122 9157239632) ALTv (test code = 26 U/L 5-35 1742-6) AST(SGOT) (test code = 33 U/L 13-40 9197598408) eGFR (test code = mL/min/1.73m2 4457198431) YANIRA (test code = YANIRA) Association of [...] tests). Lab Interpretation Abnormal (test code = 33700-6) [facility] ResourcesL[facility], [id number] 01:38:03 Test Item Value Reference Range Interpretation Comments LIPASE (test code = 6292090458) 195 U/L 0-220 Lab Interpretation (test code = Normal 02524-2) [facility] ResourcesaPTT2021-06-19 01:20:00 Test Item Value Reference Range Interpretation Comments APTT Patient (test See_Comment [Automat ed code = 3173-2) message] The system which generated this result transmitted reference range : 23 - 38 Seconds . The reference range was not used to interpr et this result as normal/abnormal . YANIRA (test code = YANIRA) The [facility] patient population mean normal value for aPTT is 30 seconds. Lab Interpretation Normal (test code = 31862-7) [facility] ResourcesPROTHROMBIN TIME / [id number] 01:17:58 Test Item Value Reference Range Interpretation Comments PROTIME PATIENT (test See_Comment [Auto mated message] code = 5964-2) The system [facility] generated this result transmitted ref erence range: 12.0 - 1 4.7 Seconds. The re ference range was not u sed to interpret this result as normal/abnor mal. INR (test code = 6301-6) Nor mal INR <1.1; Warfarin Therap eutic range 2.0 to 3. 0 or 2.5 to 3.5, dep ending upon the indica tions. Lab Interpretation (test Normal code = 57833-7) [facility] WITH [id number] 01:10:57 Test Item Value Reference Range Interpretation Comments WBC (test code = See_Comment [Automated message] 6690-2) The system [employer] generated this result transmitted ref erence range: 4.30 - 1 1.10 10*3/?L. The re ference range was not u sed to interpret this result as normal/abnor mal. RBC (test code = See_Comment [Automated message] 789-8) The system [employer] generated this result transmitted ref erence [...] RDW-SD (test code 40.8 fL 39.0-49.9 = 57304-5) RDW-CV (test code 12.6 % 12.0-15.5 = 788-0) PLT (test code = See_Comment [Automated message] 777-3) The system whic h generated this result transmitted ref erence range: 166 - 35 8 10*3/?L. The re ference range was not u sed to interpret this result as normal/abnor mal. MPV (test code = 10.0 fL 9.5-12.9 22185-8) NRBC/100 WBC (test See_Comment [Automat ed message] code = 8904687376) The syste m which generated this result transmitted ref erence range: 0.0 - 10 .0 /100 WBCs. The refer ence range was not u sed to interpret this result as normal/abnor mal. NRBC x10^3 (test <0.01 See_Comment [Automated message] code = 9054956000) The syste m which generated this result transmitted ref erence range: 10*3/?L. The reference range was not used to interpr et this result as normal/abnormal . GRAN MAT (NEUT) % 53.6 % (test code = 770-8) IMM GRAN % (test 0.30 % code = 8872029614) LYMPH % (test code 35.7 % = 736-9) MONO % (test code 7.7 % = 5905-5) EOS % (test code = 2.4 % 713-8) BASO % (test code 0.3 % = 706-2) GRAN MAT 3.94 10*3/uL 1.88-7.09 x10^3(ANC) (test code = 4156112431) IMM GRAN x10^3 <0.03 0.00-0.06 (test code = 7933527960) LYMPH x10^3 (test 2.63 10*3/uL 1.32-3.29 code = 731-0) MONO x10^3 (test 0.57 10*3/uL 0.33-0.92 code = 742-7) EOS x10^3 (test 0.18 10*3/uL 0.03-0.39 code = 711-2) BASO x10^3 (test <0.03 0.01-0.07 code = 704-7) [facility] ResourcesURINALYSIS2021-02-10 22:06:00 Test Item Value Reference Range Interpretation Comments APPEARANCE (test code = Cloudy Clear A 3216476006) COLOR (test code = Yellow Yellow 9456294085) PH (test code = 4.8-8.0 7151402058) SP GRAVITY (test code = 1.003-1.030 1267506685) GLU U QUAL (test code = Normal Normal 9551471810) BLOOD (test code = Negative Negative INTERFERE NCE FROM 9706959469) ASCORBIC ACID M AY CAUSE FALSE NEG ATIVE RESULT KETONES (test code = Negative Negative 6758514908) PROTEIN (test code = 30 mg/dL Negative A 2887-8) UROBILIN (test code = 2.0 mg/dL Normal A 9171001096) BILIRUBIN (test code = Negative Negative 2179046689) NITRITE (test code = Negative Negative 8885525107) LEUK ANA (test code = 25/uL Negative A 7785674139) RBC/HPF (test code = <1 See_Comment [Autom ated message] 5846054177) The system [employer] generated this result transmitted ref erence range: 0 - 3 HP F. The reference range was not used to int erpret this result as normal/abnormal . WBC/HPF (test code = See_Comment H [Autom ated message] 6587846562) The system [employer] generated this result transmitted ref erence range: 0 - 5 HP F. The reference range was not used to int erpret this result as normal/abnormal . BACTERIA (test code = Many Negative A 6993646265) MUCOUS (test code = Slight Negative LPF A 0833326249) AMORPHOUS (test code = Few Rare HPF A 7951997081) SQ EPITH (test code = HPF 7762676772) CA OXALATE (test code = See_Comment H [Au tomated message] 3928635432) The system [employer] generated this result transmitted ref erence range: <=1 HPF. The reference range was not used to int erpret this result as normal/abnormal . Lab Interpretation Abnormal (test code = 20671-7) [facility] ResourcesHEMOGLOBIN [id number] 00:00:00 Test Item Value Reference Range Interpretation Comments HEMOGLOBIN A1c (test code = 44382) 5.8 % HEMOGLOBIN [id number] 00:00:00 Test Item Value Reference Range Interpretation Comments HEMOGLOBIN A1c (test code = 48231) 5.8 % CBC W/AUTO [id number] 00:00:00 Test Item Value Reference Range Interpretation [...] code = 1015) 230 K/UL CBC W/AUTO [id number] 00:00:00 Test Item Value Reference Range Interpretation [...] code = 1015) 230 K/UL COMPREHENSIVE METABOLIC [id number] 00:00:00 Test Item Value Reference Range Interpretation Comments GLUCOSE (test code = 2217) 113 MG/DL BUN (test code = 2208) 8 MG/DL CREATININE (test code = 2214) 0.70 MG/DL eGFR AMER. (test code 122 ML/MIN/1.73 = 61296) eGFR NON- AMER. (test 105 ML/MIN/1.73 code = 03976) CALC BUN/CREAT (test code = 11 RATIO 2235) SODIUM (test code = 2231) 137 MEQ/L POTASSIUM (test code = 2228) 4.3 MEQ/L CHLORIDE (test code = 2215) 99 MEQ/L CARBON DIOXIDE (test code = 25 MEQ/L 220) CALCIUM (test code = 2209) [...] (test code = 2219) 18 U/L LIPID [id number] 00:00:00 Test Item Value Reference Range Interpretation Comments CHOLESTEROL (test code = 2210) 191 MG/DL TRIGLYCERIDES (test code = 2232) 173 MG/DL HDL CHOLESTEROL (test code = 2220) 40 MG/DL CALC LDL CHOL (test code = 2237) 122 MG/DL RISK RATIO LDL/HDL (test code = 3.05 RATIO 2238) VITAMIN D, 25 [id number] 00:00:00 Test Item Value Reference Range Interpretation Comments VITAMIN D, 25 OH (test code = 4958) 25 NG/ML HEMOGLOBIN [id number] 00:00:00 Test Item Value Reference Range Interpretation Comments HEMOGLOBIN A1c (test code = 84267) 5.8 % HEMOGLOBIN [id number] 00:00:00 Test Item Value Reference Range Interpretation Comments HEMOGLOBIN A1c (test code = 04727) 5.8 % HEMOGLOBIN [id number] 00:00:00 Test Item Value Reference Range Interpretation Comments HEMOGLOBIN A1c (test code = 66727) 5.8 % HEMOGLOBIN [id number] 00:00:00 Test Item Value Reference Range Interpretation Comments HEMOGLOBIN A1c (test code = 56728) 5.8 % CBC W/AUTO [id number] 00:00:00 Test Item Value Reference Range Interpretation [...] code = 1015) 230 K/UL CBC W/AUTO [id number] 00:00:00 Test Item Value Reference Range Interpretation [...] code = 1015) 230 K/UL COMPREHENSIVE METABOLIC [id number] 00:00:00 Test Item Value Reference Range Interpretation Comments GLUCOSE (test code = 2217) 113 MG/DL BUN (test code = 2208) 8 MG/DL CREATININE (test code = 2214) 0.70 MG/DL eGFR AMER. (test code 122 ML/MIN/1.73 = 23084) eGFR NON- AMER. (test 105 ML/MIN/1.73 code = 25213) CALC BUN/CREAT (test code = 11 RATIO 2235) SODIUM (test code = 2231) 137 MEQ/L POTASSIUM (test code = 2228) 4.3 MEQ/L CHLORIDE (test code = 2215) 99 MEQ/L CARBON DIOXIDE (test code = 25 MEQ/L 2205) CALCIUM (test code = 220) 10.6 MG/DL PROTEIN, TOTAL (test code = 8.2 G/DL 2228) ALBUMIN (test code = 220) 4.1 G/DL CALC GLOBULIN (test code = 4.1 G/DL 2239) CALC A/G RATIO (test code = 1.0 RATIO 2233) BILIRUBIN, TOTAL (test code = 0.2 MG/DL 2206) ALKALINE PHOSPHATASE (test 100 U/L code = 2203) AST (test code = 2218) 19 U/L ALT (test code = 221) 18 U/L LIPID [id number] 00:00:00 Test Item Value Reference Range Interpretation Comments CHOLESTEROL (test code = 2210) 191 MG/DL TRIGLYCERIDES (test code = 2232) 173 MG/DL HDL CHOLESTEROL (test code = 2220) 40 MG/DL CALC LDL CHOL (test code = 2236) 122 MG/DL RISK RATIO LDL/HDL (test code = 3.05 RATIO 2237) VITAMIN D, 25 [id number] 00:00:00 Test Item Value Reference Range Interpretation Comments VITAMIN D, 25 OH (test code = 4958) 25 NG/ML CBC W/AUTO [id number] 00:00:00 Test Item Value Reference Range Interpretation [...] code = 1015) 230 K/UL CBC W/AUTO [id number] 00:00:00 Test Item Value Reference Range Interpretation [...] (test code = 1015) 230 K/UL HEMOGLOBIN [id number] 00:00:00 Test Item Value Reference Range Interpretation Comments HEMOGLOBIN A1c (test code = 08954) 5.8 % HEMOGLOBIN [id number] 00:00:00 Test Item Value Reference Range Interpretation Comments HEMOGLOBIN A1c (test code = 98337) 5.8 % HEMOGLOBIN [id number] 00:00:00 Test Item Value Reference Range Interpretation Comments HEMOGLOBIN A1c (test code = 01874) 5.8 % CBC W/AUTO [id number] 00:00:00 Test Item Value Reference Range Interpretation [...] code = 1015) 230 K/UL CBC W/AUTO [id number] 00:00:00 Test Item Value Reference Range Interpretation [...] code = 1015) 230 K/UL CBC W/AUTO [id number] 00:00:00 Test Item Value Reference Range Interpretation [...] code = 1015) 230 K/UL COMPREHENSIVE METABOLIC [id number] 00:00:00 Test Item Value Reference Range Interpretation Comments GLUCOSE (test code = 2217) 113 MG/DL BUN (test code = 2208) 8 MG/DL CREATININE (test code = 2214) 0.70 MG/DL eGFR AMER. (test code 122 ML/MIN/1.73 = 46318) eGFR NON- AMER. (test 105 ML/MIN/1.73 code = 59725) CALC BUN/CREAT (test code = 11 RATIO [...] code = 2219) 18 U/L COMPREHENSIVE METABOLIC [id number] 00:00:00 Test Item Value Reference Range Interpretation Comments GLUCOSE (test code = 2217) 113 MG/DL BUN (test code = 2208) 8 MG/DL CREATININE (test code = 2214) 0.70 MG/DL eGFR AMER. (test code 122 ML/MIN/1.73 = 93183) eGFR NON- AMER. (test 105 ML/MIN/1.73 code = 30185) CALC BUN/CREAT (test code = 11 RATIO [...] (test code = 2219) 18 U/L LIPID [id number] 00:00:00 Test Item Value Reference Range Interpretation Comments CHOLESTEROL (test code = 2210) 191 MG/DL TRIGLYCERIDES (test code = 2232) 173 MG/DL HDL CHOLESTEROL (test code = 2220) 40 MG/DL CALC LDL CHOL (test code = 2237) 122 MG/DL RISK RATIO LDL/HDL (test code = 3.05 RATIO 2238) LIPID [id number] 00:00:00 Test Item Value Reference Range Interpretation Comments CHOLESTEROL (test code = 2210) 191 MG/DL TRIGLYCERIDES (test code = 2232) 173 MG/DL HDL CHOLESTEROL (test code = 2220) 40 MG/DL CALC LDL CHOL (test code = 2237) 122 MG/DL RISK RATIO LDL/HDL (test code = 3.05 RATIO 2238) COMPREHENSIVE METABOLIC [id number] 00:00:00 Test Item Value Reference Range Interpretation Comments GLUCOSE (test code = 2217) 113 MG/DL BUN (test code = 2208) 8 MG/DL CREATININE (test code = 2214) 0.70 MG/DL eGFR AMER. (test code 122 ML/MIN/1.73 = 42795) eGFR NON- AMER. (test 105 ML/MIN/1.73 code = 82492) CALC BUN/CREAT (test code = 11 RATIO [...] = 2219) 18 U/L VITAMIN D, 25 [id number] 00:00:00 Test Item Value Reference Range Interpretation Comments VITAMIN D, 25 OH (test code = 4958) 25 NG/ML VITAMIN D, 25 [id number] 00:00:00 Test Item Value Reference Range Interpretation Comments VITAMIN D, 25 OH (test code = 4958) 25 NG/ML LIPID [id number] 00:00:00 Test Item Value Reference Range Interpretation Comments CHOLESTEROL (test code = 2210) 191 MG/DL TRIGLYCERIDES (test code = 2232) 173 MG/DL HDL CHOLESTEROL (test code = 2220) 40 MG/DL CALC LDL CHOL (test code = 2237) 122 MG/DL RISK RATIO LDL/HDL (test code = 3.05 RATIO 2238) HEMOGLOBIN [id number] 00:00:00 Test Item Value Reference Range Interpretation Comments HEMOGLOBIN A1c (test code = 47642) 5.8 % VITAMIN D, 25 [id number] 00:00:00 Test Item Value Reference Range Interpretation Comments VITAMIN D, 25 OH (test code = 4958) 25 NG/ML HEMOGLOBIN [id number] 00:00:00 Test Item Value Reference Range Interpretation Comments HEMOGLOBIN A1c (test code = 73754) 5.8 % HEMOGLOBIN [id number] 00:00:00 Test Item Value Reference Range Interpretation Comments HEMOGLOBIN A1c (test code = 92881) 5.8 % CBC W/AUTO [id number] 00:00:00 Test Item Value Reference Range Interpretation [...] code = 1015) 230 K/UL CBC W/AUTO [id number] 00:00:00 Test Item Value Reference Range Interpretation [...] code = 1015) 230 K/UL CBC W/AUTO [id number] 00:00:00 Test Item Value Reference Range Interpretation [...] code = 1015) 230 K/UL COMPREHENSIVE METABOLIC [id number] 00:00:00 Test Item Value Reference Range Interpretation Comments GLUCOSE (test code = 2217) 113 MG/DL BUN (test code = 2208) 8 MG/DL CREATININE (test code = 2214) 0.70 MG/DL eGFR AMER. (test code 122 ML/MIN/1.73 = 96326) eGFR NON- AMER. (test 105 ML/MIN/1.73 code = 15610) CALC BUN/CREAT (test code = 11 RATIO [...] code = 2219) 18 U/L COMPREHENSIVE METABOLIC [id number] 00:00:00 Test Item Value Reference Range Interpretation Comments GLUCOSE (test code = 221) 113 MG/DL BUN (test code = 2208) 8 MG/DL CREATININE (test code = 2214) 0.70 MG/DL eGFR AMER. (test code 122 ML/MIN/1.73 = 46638) eGFR NON- AMER. (test 105 ML/MIN/1.73 code = 46984) CALC BUN/CREAT (test code = 11 RATIO [...] (test code = 2219) 18 U/L LIPID [id number] 00:00:00 Test Item Value Reference Range Interpretation Comments CHOLESTEROL (test code = 2210) 191 MG/DL TRIGLYCERIDES (test code = 2232) 173 MG/DL HDL CHOLESTEROL (test code = 2220) 40 MG/DL CALC LDL CHOL (test code = 2237) 122 MG/DL RISK RATIO LDL/HDL (test code = 3.05 RATIO 2238) LIPID [id number] 00:00:00 Test Item Value Reference Range Interpretation Comments CHOLESTEROL (test code = 2210) 191 MG/DL TRIGLYCERIDES (test code = 2232) 173 MG/DL HDL CHOLESTEROL (test code = 2220) 40 MG/DL CALC LDL CHOL (test code = 2237) 122 MG/DL RISK RATIO LDL/HDL (test code = 3.05 RATIO 2238) VITAMIN D, 25 [id number] 00:00:00 Test Item Value Reference Range Interpretation Comments VITAMIN D, 25 OH (test code = 4958) 25 NG/ML VITAMIN D, 25 [id number] 00:00:00 Test Item Value Reference Range Interpretation Comments VITAMIN D, 25 OH (test code = 4958) 25 NG/ML THYROID II PROFILE (T3U, T4, T7, TSH)2019-08-01 00:00:00 Test Item Value Reference Range Interpretation Comments T-UPTAKE (test code = 2816) 27.2 % THYROX. BIND. CAPAC. (test code 1.2 = 36692) T4 (THYROXINE) (test code = 8.4 UG/DL 2818) CORRECTED T4 (FTI) (test code = 7.0 UG/DL 2820) TSH, THIRD GENERATION (test code 0.862 UIU/ML = 2821) THYROID II PROFILE (T3U, T4, T7, TSH)2019-08-01 00:00:00 Test Item Value Reference Range Interpretation Comments T-UPTAKE (test code = 2816) 27.2 % THYROX. BIND. CAPAC. (test code 1.2 = 01968) T4 (THYROXINE) (test code = 8.4 UG/DL 9) CORRECTED T4 (FTI) (test code = 7.0 UG/DL 2820) TSH, THIRD GENERATION (test code 0.862 UIU/ML = 2821) THYROID II PROFILE (T3U, T4, T7, TSH)2019-08-01 00:00:00 Test Item Value Reference Range Interpretation Comments T-UPTAKE (test code = 2816) 27.2 % THYROX. BIND. CAPAC. (test code 1.2 = 63063) T4 (THYROXINE) (test code = 8.4 UG/DL 9) CORRECTED T4 (FTI) (test code = 7.0 UG/DL 2820) TSH, THIRD GENERATION (test code 0.862 UIU/ML = 2821) THYROID II PROFILE (T3U, T4, T7, TSH)2019-08-01 00:00:00 Test Item Value Reference Range Interpretation Comments T-UPTAKE (test code = 2817) 27.2 % THYROX. BIND. CAPAC. (test code 1.2 = 60423) T4 (THYROXINE) (test code = 8.4 UG/DL 2819) CORRECTED T4 (FTI) (test code = 7.0 UG/DL 2820) TSH, THIRD GENERATION (test code 0.862 UIU/ML = 2821) THYROID II PROFILE (T3U, T4, T7, TSH)2019-08-01 00:00:00 Test Item Value Reference Range Interpretation Comments T-UPTAKE (test code = 2817) 27.2 % THYROX. BIND. CAPAC. (test code 1.2 = 18184) T4 (THYROXINE) (test code = 8.4 UG/DL 2819) CORRECTED T4 (FTI) (test code = 7.0 UG/DL 2820) TSH, THIRD GENERATION (test code 0.862 UIU/ML = 2821) THYROID II PROFILE (T3U, T4, T7, TSH)2019-08-01 00:00:00 Test Item Value Reference Range Interpretation Comments T-UPTAKE (test code = 2817) 27.2 % THYROX. BIND. CAPAC. (test code 1.2 = 39539) T4 (THYROXINE) (test code = 8.4 UG/DL 2819) CORRECTED T4 (FTI) (test code = 7.0 UG/DL 2820) TSH, THIRD GENERATION (test code 0.862 UIU/ML = 2821) THYROID II PROFILE (T3U, T4, T7, TSH)2019-08-01 00:00:00 Test Item Value Reference Range Interpretation Comments T-UPTAKE (test code = 2817) 27.2 % THYROX. BIND. CAPAC. (test code 1.2 = 07417) T4 (THYROXINE) (test code = 8.4 UG/DL 2819) CORRECTED T4 (FTI) (test code = 7.0 UG/DL 2820) TSH, THIRD GENERATION (test code 0.862 UIU/ML = 2821) [id number] 22:31:00 Test Item Value Reference Range Interpretation Comments CDC HIV 4th GEN (test Negative *NA*(03/29/18 code = CDC HIV 4th 4:31 PM) GEN) [facility] GkqoxsgQFCVLQHCWT4742-97-12 22:31:00 Test Item Value Reference Range Interpretation Comments CDC HIV 4th GEN (test Negative *NA*(03/29/18 code = CDC HIV 4th 4:31 PM) GEN) [facility]FaikwsoQITGDWOTZE7159-10-50 22:31:00 Test Item Value Reference Range Interpretation Comments CDC HIV 4th GEN (test Negative *NA*(03/29/18 code = CDC HIV 4th 4:31 PM) GEN) [facility] HospitalVcnltuxFYFKCJSAOM1991-70-02 22:31:00 Test Item Value Reference Range Interpretation Comments [facility] HIV 4th GEN (test Negative *NA*(03/29/18 code = CDC HIV 4th 4:31 PM) GEN) [facility] HospitalMttofioDYSLJTRJEM7389-74-36 22:31:00 Test Item Value Reference Range Interpretation Comments [facility] HIV 4th GEN (test Negative *NA*(03/29/18 code = CDC HIV 4th 4:31 PM) GEN) [facility] LAQLYXZ0388-27-23 21:03:00 Test Item Value Reference Range Interpretation Comments Troponin-I (test code no gt See_Comment [Auto mated message] The = Troponin-I) system which g enerated this result transmit kuldip reference range : <=0.40. The reference r nilam was not used to interpr et this result as abiodun l/abnormal. [facility] HospitalQuzjkuzWGZZWHLTBTDB9879-93-43 21:03:00 Test Item Value Reference Range Interpretation Comments AGAP (test code = AGAP) 14.2 10.0-20.0 [facility] HospitalXybthcyTGEMVZOATPME1464-35-79 21:03:00 Test Item Value Reference Range Interpretation Comments Calcium Lvl (test code = Calcium Lvl) 11.2 8.5-10.5 [facility] HospitalSzacqjrXLTGYZRYDPVP3053-87-33 21:03:00 Test Item Value Reference Range Interpretation Comments Potassium Lvl (test code = Potassium 4.2 3.5-5.1 Lvl) [facility] HospitalHdsqqjcUOKDQJACEQPS8784-53-96 21:03:00 Test Item Value Reference Range Interpretation Comments Sodium Lvl (test code = Sodium Lvl) 139 135-145 [facility] HospitalUuzjwczZCLPNLHWDSYA4840-95-58 21:03:00 Test Item Value Reference Range Interpretation Comments CO2 (test code = CO2) 27 24-32 [facility] HospitalVguctvxATJOWEBDMSWT1950-79-86 21:03:00 Test Item Value Reference Range Interpretation Comments Chloride Lvl (test code = Chloride Lvl) 102 95-109 [facility] HospitalQixjwynOLKUOUFRAQKY1034-74-74 21:03:00 Test Item Value Reference Range Interpretation Comments Creatinine Lvl (test code = Creatinine 0.90 0.50-1.40 Lvl) [facility] HospitalOevbyijQYVTBYAMJVTP1696-50-93 21:03:00 Test Item Value Reference Range Interpretation Comments BUN (test code = BUN) 11 7-22 [facility] HospitalCbhjuacZYVCYIBMPNEU9347-82-98 21:03:00 Test Item Value Reference Range Interpretation Comments Glucose Lvl (test code = Glucose Lvl) 97 70-99 [facility] HospitalAygklklZXUSQKFENIZN3071-64-15 21:03:00 Test Item Value Reference Range Interpretation Comments eGFR (test code = eGFR) 79 [facility]MukqrfcWEDLGZIFPD0519-22-14 21:03:00 Test Item Value Reference Range Interpretation Comments Hgb (test code = Hgb) 14.1 12.0-16.0 [facility] CenterPptwfdkCLCQZSTAFB8486-13-84 21:03:00 Test Item Value Reference Range Interpretation Comments MCV (test code = MCV) 89.6 80.0-98.0 [facility] CenterPtjpfebGMETPDTWSN6120-77-95 21:03:00 Test Item Value Reference Range Interpretation Comments Hct (test code = Hct) 42.0 36.0-48.0 [facility] CenterZhadzloNIWASZZDSE4928-48-21 21:03:00 Test Item Value Reference Range Interpretation Comments MPV (test code = MPV) 8.4 7.4-10.4 [facility] CenterLesouvbXFRBVWIYYI0698-53-96 21:03:00 Test Item Value Reference Range Interpretation Comments WBC (test code = WBC) 6.4 3.7-10.4 [facility] CenterHminlthNALQGARPJK6700-93-63 21:03:00 Test Item Value Reference Range Interpretation Comments RBC (test code = RBC) 4.68 4.20-5.40 [facility] CenterEakovtgSOVFOXDORE4458-13-95 21:03:00 Test Item Value Reference Range Interpretation Comments RDW (test code = RDW) 12.9 11.5-14.5 [facility]IyygukrLTFHCSZVEX2769-55-40 21:03:00 Test Item Value Reference Range Interpretation Comments MCH (test code = MCH) 30.1 pg 27.0-31.0 [facility] HospitalIvodqzxLNUYKKAXMK7277-94-06 21:03:00 Test Item Value Reference Range Interpretation Comments MCHC (test code = MCHC) 33.6 32.0-36.0 [facility] HospitalEwpcwcnFNNKTWRKDN3187-01-62 21:03:00 Test Item Value Reference Range Interpretation Comments Platelet (test code = Platelet) 221 133-450 [facility]ARD[facility] NWEZEAS2940-90-89 21:03:00 Test Item Value Reference Range Interpretation Comments Troponin-I (test code no gt See_Comment [Auto mated message] The = Troponin-I) system which g enerated this result transmit kuldip reference range : <=0.40. The reference r nilam was not used to interpr et this result as abiodun l/abnormal. [facility] HospitalDcvcqxdZMRYBYRNLTXI4698-41-29 21:03:00 Test Item Value Reference Range Interpretation Comments AGAP (test code = AGAP) 14.2 10.0-20.0 [facility] HospitalMwrjqvcGEMYIYLRLTAL1743-99-05 21:03:00 Test Item Value Reference Range Interpretation Comments Calcium Lvl (test code = Calcium Lvl) 11.2 8.5-10.5 [facility]TcqknlvMGAGNONPNNWP1830-36-76 21:03:00 Test Item Value Reference Range Interpretation Comments Potassium Lvl (test code = Potassium 4.2 3.5-5.1 Lvl) [facility]neMbxzbutUENWFQDALEWQ8584-86-39 21:03:00 Test Item Value Reference Range Interpretation Comments Sodium Lvl (test code = Sodium Lvl) 139 135-145 [facility] HospitalUhgvuukKVTGDEDUDZVR4892-70-14 21:03:00 Test Item Value Reference Range Interpretation Comments CO2 (test code = CO2) 27 24-32 [facility]GunxxukYNTADTMMVREK7297-54-93 21:03:00 Test Item Value Reference Range Interpretation Comments Chloride Lvl (test code = Chloride Lvl) 102 95-109 [facility]neHcxotblUZXHNEWMKWZO0576-90-42 21:03:00 Test Item Value Reference Range Interpretation Comments Creatinine Lvl (test code = Creatinine 0.90 0.50-1.40 Lvl) [facility] HospitalEmzcljiSBONECFOMLPH5890-04-84 21:03:00 Test Item Value Reference Range Interpretation Comments BUN (test code = BUN) 11 7-22 [facility] HospitalZggabmaVBVTDPFGJWRZ3911-18-37 21:03:00 Test Item Value Reference Range Interpretation Comments Glucose Lvl (test code = Glucose Lvl) 97 70-99 [facility] HospitalYaflkugWHELGRNBRSAD2301-15-85 21:03:00 Test Item Value Reference Range Interpretation Comments eGFR (test code = eGFR) 79 [facility] CenterKfrcgcsWHRASYPNPG4175-79-24 21:03:00 Test Item Value Reference Range Interpretation Comments Hgb (test code = Hgb) 14.1 12.0-16.0 [facility] CenterVdpixhiEZCMEMNNZA1891-95-98 21:03:00 Test Item Value Reference Range Interpretation Comments MCV (test code = MCV) 89.6 80.0-98.0 [facility] CenterEmmpjcwKOZKBTLZER8983-37-52 21:03:00 Test Item Value Reference Range Interpretation Comments Hct (test code = Hct) 42.0 36.0-48.0 [facility] CenterVuqrlunVFLHYFQYTW8092-70-11 21:03:00 Test Item Value Reference Range Interpretation Comments MPV (test code = MPV) 8.4 7.4-10.4 [facility] CenterCvnpogeKDALFNOIKO2707-04-11 21:03:00 Test Item Value Reference Range Interpretation Comments WBC (test code = WBC) 6.4 3.7-10.4 [facility] CenterJwafftsMPOYPXFNSO9571-48-84 21:03:00 Test Item Value Reference Range Interpretation Comments RBC (test code = RBC) 4.68 4.20-5.40 [facility] CenterDfifgzuGSBVURHDKN2994-94-04 21:03:00 Test Item Value Reference Range Interpretation Comments RDW (test code = RDW) 12.9 11.5-14.5 [facility] CenterEwtfzmwDWTHUASGIY1861-25-00 21:03:00 Test Item Value Reference Range Interpretation Comments MCH (test code = MCH) 30.1 pg 27.0-31.0 [facility] CenterZxyhdswYOEHHLGKER0776-85-77 21:03:00 Test Item Value Reference Range Interpretation Comments MCHC (test code = MCHC) 33.6 32.0-36.0 [facility] CenterDpuelytYMKMMLUTYI5026-52-55 21:03:00 Test Item Value Reference Range Interpretation Comments Platelet (test code = Platelet) 221 133-450 [facility] HospitalannCARDIAC TVAKDJF0892-96-85 21:03:00 Test Item Value Reference Range Interpretation Comments Troponin-I (test code no gt See_Comment [Auto mated message] The = Troponin-I) system which g enerated this result transmit kuldip reference range : <=0.40. The reference r nilam was not used to interpr et this result as abiodun l/abnormal. [facility] HospitalBydianxUFRDEIFBYCNR3226-11-60 21:03:00 Test Item Value Reference Range Interpretation Comments AGAP (test code = AGAP) 14.2 10.0-20.0 [facility] HospitalPjqorhhFZFJYNSDTMAE0814-91-50 21:03:00 Test Item Value Reference Range Interpretation Comments Calcium Lvl (test code = Calcium Lvl) 11.2 8.5-10.5 [facility] HospitalKlyaypxBSFKRDDYOMKL2104-15-33 21:03:00 Test Item Value Reference Range Interpretation Comments Potassium Lvl (test code = Potassium 4.2 3.5-5.1 Lvl) [facility] HospitalYbzypogDRCIECCHQHZS5856-08-73 21:03:00 Test Item Value Reference Range Interpretation Comments Sodium Lvl (test code = Sodium Lvl) 139 135-145 [facility] HospitalNxbrvzjXHJPXWUSHDRU6825-38-70 21:03:00 Test Item Value Reference Range Interpretation Comments CO2 (test code = CO2) 27 24-32 [facility] HospitalQhetbtjYRXPLLTUVTUO5341-91-80 21:03:00 Test Item Value Reference Range Interpretation Comments Chloride Lvl (test code = Chloride Lvl) 102 95-109 [facility] HospitalHdwbiniGXMLUFRVDEHQ3878-73-23 21:03:00 Test Item Value Reference Range Interpretation Comments Creatinine Lvl (test code = Creatinine 0.90 0.50-1.40 Lvl) [facility] HospitalXpodzsoCJCSHZGQFCLS0311-20-02 21:03:00 Test Item Value Reference Range Interpretation Comments BUN (test code = BUN) 11 7-22 [facility] HospitalRsjncgrIDMCGSNLPJFY4892-33-63 21:03:00 Test Item Value Reference Range Interpretation Comments Glucose Lvl (test code = Glucose Lvl) 97 70-99 [facility] HospitalZmrioitKXXTVWKVTXFW9483-65-90 21:03:00 Test Item Value Reference Range Interpretation Comments eGFR (test code = eGFR) 79 [facility] HospitalIusdddyPBKERXULIR7510-05-27 21:03:00 Test Item Value Reference Range Interpretation Comments Hgb (test code = Hgb) 14.1 12.0-16.0 [facility] HospitalUrjvlzyWRXJAVUWMT4305-91-76 21:03:00 Test Item Value Reference Range Interpretation Comments MCV (test code = MCV) 89.6 80.0-98.0 [facility] HospitalKrkswgfSLYLKJIWBV5988-21-08 21:03:00 Test Item Value Reference Range Interpretation Comments Hct (test code = Hct) 42.0 36.0-48.0 [facility] HospitalNxdatbxKJDQOTGHEW7430-29-18 21:03:00 Test Item Value Reference Range Interpretation Comments MPV (test code = MPV) 8.4 7.4-10.4 [facility] CenterHslaugnKKXVNCCYVN9290-02-80 21:03:00 Test Item Value Reference Range Interpretation Comments WBC (test code = WBC) 6.4 3.7-10.4 [facility] HospitalGyfobckZEHFSRXWDM2847-86-73 21:03:00 Test Item Value Reference Range Interpretation Comments RBC (test code = RBC) 4.68 4.20-5.40 [facility] HospitalMpsoepaNFFUYMPFVU9188-40-19 21:03:00 Test Item Value Reference Range Interpretation Comments RDW (test code = RDW) 12.9 11.5-14.5 [facility] HospitalWvxjylcEPCNCBYLXN0475-92-23 21:03:00 Test Item Value Reference Range Interpretation Comments MCH (test code = MCH) 30.1 pg 27.0-31.0 [facility] HospitalMkqgvlpVWUXHCDMPO3372-37-33 21:03:00 Test Item Value Reference Range Interpretation Comments MCHC (test code = MCHC) 33.6 32.0-36.0 [facility] HospitalWtvipceEPCTLPRKHV2656-87-66 21:03:00 Test Item Value Reference Range Interpretation Comments Platelet (test code = Platelet) 221 133-450 [facility] RPSDIGX6316-52-26 21:03:00 Test Item Value Reference Range Interpretation Comments Troponin-I (test code no gt See_Comment [Auto mated message] The = Troponin-I) system which g enerated this result transmit kuldip reference range : <=0.40. The reference r nilam was not used to interpr et this result as abiodun l/abnormal. [facility] HbqmjjjSGGENDBKHUKW5591-91-21 21:03:00 Test Item Value Reference Range Interpretation Comments AGAP (test code = AGAP) 14.2 10.0-20.0 [facility] HospitalLxyymzoREJVXYCAUDDC5083-12-13 21:03:00 Test Item Value Reference Range Interpretation Comments Calcium Lvl (test code = Calcium Lvl) 11.2 8.5-10.5 [facility] HospitalQofegbfFDDMNBZVEIPI7301-31-80 21:03:00 Test Item Value Reference Range Interpretation Comments Potassium Lvl (test code = Potassium 4.2 3.5-5.1 Lvl) [facility] HospitalHnhbguvTYPAICPEJVFP6035-42-59 21:03:00 Test Item Value Reference Range Interpretation Comments Sodium Lvl (test code = Sodium Lvl) 139 135-145 [facility] HospitalGbqamphDUVVFIOSYFZT9617-78-24 21:03:00 Test Item Value Reference Range Interpretation Comments CO2 (test code = CO2) 27 24-32 [facility] HospitalHseexvvGUQCWREQFIUD6448-80-88 21:03:00 Test Item Value Reference Range Interpretation Comments Chloride Lvl (test code = Chloride Lvl) 102 95-109 [facility] HospitalFwyunjpITXDRNFWMBBV0778-49-53 21:03:00 Test Item Value Reference Range Interpretation Comments Creatinine Lvl (test code = Creatinine 0.90 0.50-1.40 Lvl) [facility] HospitalEuatngtEPYWYSJLWCEX7898-57-57 21:03:00 Test Item Value Reference Range Interpretation Comments BUN (test code = BUN) 11 7-22 [facility] HospitalCughoqeKTXAXTCETHXK9423-35-47 21:03:00 Test Item Value Reference Range Interpretation Comments Glucose Lvl (test code = Glucose Lvl) 97 70-99 [facility] HospitalVubdevwIRLXOKNSVOKK3085-58-87 21:03:00 Test Item Value Reference Range Interpretation Comments eGFR (test code = eGFR) 79 [facility] CenterNmkcryyGBOQUZNXYX4470-21-00 21:03:00 Test Item Value Reference Range Interpretation Comments Hgb (test code = Hgb) 14.1 12.0-16.0 [facility] CenterGicgajoCVKGRMDKCM0359-47-85 21:03:00 Test Item Value Reference Range Interpretation Comments MCV (test code = MCV) 89.6 80.0-98.0 [facility] CenterCxmpshuGPTWSCFOTI2139-77-49 21:03:00 Test Item Value Reference Range Interpretation Comments Hct (test code = Hct) 42.0 36.0-48.0 [facility]inteIadnhwcKUTKAMLXGM4029-12-19 21:03:00 Test Item Value Reference Range Interpretation Comments MPV (test code = MPV) 8.4 7.4-10.4 [facility] HospitalBhhpuykZUJOOZZBUO5500-45-14 21:03:00 Test Item Value Reference Range Interpretation Comments WBC (test code = WBC) 6.4 3.7-10.4 [facility] HospitalWvtgmffWVDMXQXZUO1424-81-12 21:03:00 Test Item Value Reference Range Interpretation Comments RBC (test code = RBC) 4.68 4.20-5.40 [facility] HospitalUgvhfmqQUSMVZPVPS2568-05-85 21:03:00 Test Item Value Reference Range Interpretation Comments RDW (test code = RDW) 12.9 11.5-14.5 [facility] HospitalQboloxuJTNIHMPQDC3550-49-49 21:03:00 Test Item Value Reference Range Interpretation Comments MCH (test code = MCH) 30.1 pg 27.0-31.0 [facility] HospitalQmdckwiUXHCJPAUPV5177-89-13 21:03:00 Test Item Value Reference Range Interpretation Comments MCHC (test code = MCHC) 33.6 32.0-36.0 [facility] HospitalNuyuebeIHAVDZBMMK3855-70-16 21:03:00 Test Item Value Reference Range Interpretation Comments Platelet (test code = Platelet) 221 133-450 [facility]ARD[facility] TLBCCOF8672-83-98 21:03:00 Test Item Value Reference Range Interpretation Comments Troponin-I (test code no gt See_Comment [Auto mated message] The = Troponin-I) system which g enerated this result transmit kuldip reference range : <=0.40. The reference r nilam was not used to interpr et this result as abiodun l/abnormal. [facility] HospitalGdudukkCPJPLFUFMCIM7034-96-11 21:03:00 Test Item Value Reference Range Interpretation Comments AGAP (test code = AGAP) 14.2 10.0-20.0 [facility]neLfcdouwIUNDBGGSIOFR7017-35-80 21:03:00 Test Item Value Reference Range Interpretation Comments Calcium Lvl (test code = Calcium Lvl) 11.2 8.5-10.5 [facility] HospitalBfkkpbwLUPGGWSBGDRM4870-81-00 21:03:00 Test Item Value Reference Range Interpretation Comments Potassium Lvl (test code = Potassium 4.2 3.5-5.1 Lvl) [facility] HospitalKtrtzygFGTQSGUBLMYS3923-18-31 21:03:00 Test Item Value Reference Range Interpretation Comments Sodium Lvl (test code = Sodium Lvl) 139 135-145 [facility] HospitalMosljbrPJJMNKIYSRIC2792-72-64 21:03:00 Test Item Value Reference Range Interpretation Comments CO2 (test code = CO2) 27 24-32 [facility] HospitalJcgxiqrCYKMNRZBHNIX1676-67-63 21:03:00 Test Item Value Reference Range Interpretation Comments Chloride Lvl (test code = Chloride Lvl) 102 95-109 [facility] HospitalQalytkxBWHJZYHRKNLF0962-04-09 21:03:00 Test Item Value Reference Range Interpretation Comments Creatinine Lvl (test code = Creatinine 0.90 0.50-1.40 Lvl) [facility] HospitalZxicmzsVYQQDRNOOKUC0929-22-28 21:03:00 Test Item Value Reference Range Interpretation Comments BUN (test code = BUN) 11 7-22 [facility] HospitalMwzjjpkHSBDJNRGPDGW0935-14-47 21:03:00 Test Item Value Reference Range Interpretation Comments Glucose Lvl (test code = Glucose Lvl) 97 70-99 [facility] HospitalWupouphBOWEGOJDEILO9919-04-52 21:03:00 Test Item Value Reference Range Interpretation Comments eGFR (test code = eGFR) 79 [facility] CenterZwppkzsUBIXPUCODV0536-26-23 21:03:00 Test Item Value Reference Range Interpretation Comments Hgb (test code = Hgb) 14.1 12.0-16.0 [facility] CenterOgkrbtqHWDPJSHWVD3299-36-23 21:03:00 Test Item Value Reference Range Interpretation Comments MCV (test code = MCV) 89.6 80.0-98.0 [facility] CenterHlnfmljTJCOOSLCCT0033-85-11 21:03:00 Test Item Value Reference Range Interpretation Comments Hct (test code = Hct) 42.0 36.0-48.0 [facility] CenterWirnisnESDBCGDKWK8314-22-54 21:03:00 Test Item Value Reference Range Interpretation Comments MPV (test code = MPV) 8.4 7.4-10.4 [facility] CenterFfybuuuRJTZMRERUP5342-55-27 21:03:00 Test Item Value Reference Range Interpretation Comments WBC (test code = WBC) 6.4 3.7-10.4 [facility] CenterGfjarigZUUZRRKTZR0183-56-96 21:03:00 Test Item Value Reference Range Interpretation Comments RBC (test code = RBC) 4.68 4.20-5.40 [facility] HospitalTvnlwiuFDIOHDHIBG6338-81-86 21:03:00 Test Item Value Reference Range Interpretation Comments RDW (test code = RDW) 12.9 11.5-14.5 [facility] CenterIgvxqwkHYPYNDOEUS4966-30-59 21:03:00 Test Item Value Reference Range Interpretation Comments MCH (test code = MCH) 30.1 pg 27.0-31.0 [facility] HospitalEidbvqfAYZYNGGOWY1445-04-77 21:03:00 Test Item Value Reference Range Interpretation Comments MCHC (test code = MCHC) 33.6 32.0-36.0 [facility] CenterDpxtcirILUCYNUVMF7502-25-89 21:03:00 Test Item Value Reference Range Interpretation Comments Platelet (test code = Platelet) 221 133-450 [facility]inteFchfvxsWQW4162-64-01 00:00:00 Test Item Value Reference Range Interpretation Comments RPR RESULT (test code = NON-REACTIVE 3501) RPR TITER (test code = 3500) NOT INDIC. TITER [id number] 00:00:00 Test Item Value Reference Range Interpretation Comments RPR RESULT (test code = NON-REACTIVE 3501) RPR TITER (test code = 3500) NOT INDIC. TITER HIV AB/AG COMBO RFLX [id number] 00:00:00 Test Item Value Reference Range Interpretation Comments HIV 1/2 4TH GEN, RFLX CONF (test NON-REACTIVE code = 3514) GC AND CHLAMYDIA, AMPLIFIED, [id number] 00:00:00 Test Item Value Reference Range Interpretation Comments GONORRHEA, TMA (test code = 58447) NEGATIVE CHLAMYDIA, TMA (test code = 83117) NEGATIVE ACUTE HEPATITIS [id number] 00:00:00 Test Item Value Reference Range Interpretation Comments HEPATITIS A IgM (test code = NON-REACTIVE 91340) HEPATITIS B CORE IgM (test code NON-REACTIVE = 7644) HEPATITIS B SURF AG (test code = NON-REACTIVE 7739) HEPATITIS C ANTIBODY (test code NON-REACTIVE = 5054) INTERPRETATION HEPATITIS A: (NOTE) (test code = 2552) INTERPRETATION HEPATITIS B: (NOTE) (test code = 74683) INTERPRETATION HEPATITIS C: (NOTE) (test code = 50385) [id number] 00:00:00 Test Item Value Reference Range Interpretation Comments RPR RESULT (test code = NON-REACTIVE 3501) RPR TITER (test code = 3500) NOT INDIC. TITER [id number] 00:00:00 Test Item Value Reference Range Interpretation Comments RPR RESULT (test code = NON-REACTIVE 3501) RPR TITER (test code = 3500) NOT INDIC. TITER [id number] 00:00:00 Test Item Value Reference Range Interpretation Comments RPR RESULT (test code = NON-REACTIVE 3501) RPR TITER (test code = 3500) NOT INDIC. TITER HIV AB/AG COMBO RFLX [id number] 00:00:00 Test Item Value Reference Range Interpretation Comments HIV 1/2 4TH GEN, RFLX CONF (test NON-REACTIVE code = 3514) [id number] 00:00:00 Test Item Value Reference Range Interpretation Comments RPR RESULT (test code = NON-REACTIVE 3501) RPR TITER (test code = 3500) NOT INDIC. TITER GC AND CHLAMYDIA, AMPLIFIED, [id number] 00:00:00 Test Item Value Reference Range Interpretation Comments GONORRHEA, TMA (test code = 35372) NEGATIVE CHLAMYDIA, TMA (test code = 68284) NEGATIVE ACUTE HEPATITIS [id number] 00:00:00 Test Item Value Reference Range Interpretation Comments HEPATITIS A IgM (test code = NON-REACTIVE 55637) HEPATITIS B CORE IgM (test code NON-REACTIVE = 4644) HEPATITIS B SURF AG (test code = NON-REACTIVE 2739) HEPATITIS C ANTIBODY (test code NON-REACTIVE = 4675) INTERPRETATION HEPATITIS A: (NOTE) (test code = 2552) INTERPRETATION HEPATITIS B: (NOTE) (test code = 00230) INTERPRETATION HEPATITIS C: (NOTE) (test code = 33249) HIV AB/AG COMBO RFLX [id number] 00:00:00 Test Item Value Reference Range Interpretation Comments HIV 1/2 4TH GEN, RFLX CONF (test NON-REACTIVE code = 3514) [id number] 00:00:00 Test Item Value Reference Range Interpretation Comments RPR RESULT (test code = NON-REACTIVE 3501) RPR TITER (test code = 3500) NOT INDIC. TITER [id number] 00:00:00 Test Item Value Reference Range Interpretation Comments RPR RESULT (test code = NON-REACTIVE 3501) RPR TITER (test code = 3500) NOT INDIC. TITER [id number] 00:00:00 Test Item Value Reference Range Interpretation Comments RPR RESULT (test code = NON-REACTIVE 3501) RPR TITER (test code = 3500) NOT INDIC. TITER HIV AB/AG COMBO RFLX [id number] 00:00:00 Test Item Value Reference Range Interpretation Comments HIV 1/2 4TH GEN, RFLX CONF (test NON-REACTIVE code = 3514) GC AND CHLAMYDIA, AMPLIFIED, [id number] 00:00:00 Test Item Value Reference Range Interpretation Comments GONORRHEA, TMA (test code = 05335) NEGATIVE CHLAMYDIA, TMA (test code = 93768) NEGATIVE HIV AB/AG COMBO RFLX [id number] 00:00:00 Test Item Value Reference Range Interpretation Comments HIV 1/2 4TH GEN, RFLX CONF (test NON-REACTIVE code = 3514) GC AND CHLAMYDIA, AMPLIFIED, [id number] 00:00:00 Test Item Value Reference Range Interpretation Comments GONORRHEA, TMA (test code = 17540) NEGATIVE CHLAMYDIA, TMA (test code = 77963) NEGATIVE GC AND CHLAMYDIA, AMPLIFIED, [id number] 00:00:00 Test Item Value Reference Range Interpretation Comments GONORRHEA, TMA (test code = 60106) NEGATIVE CHLAMYDIA, TMA (test code = 76603) NEGATIVE ACUTE HEPATITIS [id number] 00:00:00 Test Item Value Reference Range Interpretation Comments HEPATITIS A IgM (test code = NON-REACTIVE 36758) HEPATITIS B CORE IgM (test code NON-REACTIVE = 4644) HEPATITIS B SURF AG (test code = NON-REACTIVE 2739) HEPATITIS C ANTIBODY (test code NON-REACTIVE = 4675) INTERPRETATION HEPATITIS A: (NOTE) (test code = 2552) INTERPRETATION HEPATITIS B: (NOTE) (test code = 03368) INTERPRETATION HEPATITIS C: (NOTE) (test code = 81513) ACUTE HEPATITIS [id number] 00:00:00 Test Item Value Reference Range Interpretation Comments HEPATITIS A IgM (test code = NON-REACTIVE 71341) HEPATITIS B CORE IgM (test code NON-REACTIVE = 4644) HEPATITIS B SURF AG (test code = NON-REACTIVE 2739) HEPATITIS C ANTIBODY (test code NON-REACTIVE = 4675) INTERPRETATION HEPATITIS A: (NOTE) (test code = 2552) INTERPRETATION HEPATITIS B: (NOTE) (test code = 25453) INTERPRETATION HEPATITIS C: (NOTE) (test code = 99660) ACUTE HEPATITIS [id number] 00:00:00 Test Item Value Reference Range Interpretation Comments HEPATITIS A IgM (test code = NON-REACTIVE 97727) HEPATITIS B CORE IgM (test code NON-REACTIVE = 4644) HEPATITIS B SURF AG (test code = NON-REACTIVE 2739) HEPATITIS C ANTIBODY (test code NON-REACTIVE = 4675) INTERPRETATION HEPATITIS A: (NOTE) (test code = 2552) INTERPRETATION HEPATITIS B: (NOTE) (test code = 71381) INTERPRETATION HEPATITIS C: (NOTE) (test code = 17315) [id number] 00:00:00 Test Item Value Reference Range Interpretation Comments RPR RESULT (test code = NON-REACTIVE 3501) RPR TITER (test code = 3500) NOT INDIC. TITER [id number] 00:00:00 Test Item Value Reference Range Interpretation Comments RPR RESULT (test code = NON-REACTIVE 3501) RPR TITER (test code = 3500) NOT INDIC. TITER [id number] 00:00:00 Test Item Value Reference Range Interpretation Comments RPR RESULT (test code = NON-REACTIVE 3501) RPR TITER (test code = 3500) NOT INDIC. TITER HIV AB/AG COMBO RFLX [id number] 00:00:00 Test Item Value Reference Range Interpretation Comments HIV 1/2 4TH GEN, RFLX CONF (test NON-REACTIVE code = 3514) HIV AB/AG COMBO RFLX [id number] 00:00:00 Test Item Value Reference Range Interpretation Comments HIV 1/2 4TH GEN, RFLX CONF (test NON-REACTIVE code = 3514) GC AND CHLAMYDIA, AMPLIFIED, [id number] 00:00:00 Test Item Value Reference Range Interpretation Comments GONORRHEA, TMA (test code = 47592) NEGATIVE CHLAMYDIA, TMA (test code = 01880) NEGATIVE GC AND CHLAMYDIA, AMPLIFIED, [id number] 00:00:00 Test Item Value Reference Range Interpretation Comments GONORRHEA, TMA (test code = 11443) NEGATIVE CHLAMYDIA, TMA (test code = 82145) NEGATIVE ACUTE HEPATITIS [id number] 00:00:00 Test Item Value Reference Range Interpretation Comments HEPATITIS A IgM (test code = NON-REACTIVE 20014) HEPATITIS B CORE IgM (test code NON-REACTIVE = 4644) HEPATITIS B SURF AG (test code = NON-REACTIVE 2739) HEPATITIS C ANTIBODY (test code NON-REACTIVE = 4675) INTERPRETATION HEPATITIS A: (NOTE) (test code = 2552) INTERPRETATION HEPATITIS B: (NOTE) (test code = 43042) INTERPRETATION HEPATITIS C: (NOTE) (test code = 85120) ACUTE HEPATITIS [id number] 00:00:00 Test Item Value Reference Range Interpretation Comments HEPATITIS A IgM (test code = NON-REACTIVE 33658) HEPATITIS B CORE IgM (test code NON-REACTIVE = 4644) HEPATITIS B SURF AG (test code = NON-REACTIVE 2739) HEPATITIS C ANTIBODY (test code NON-REACTIVE = 4675) INTERPRETATION HEPATITIS A: (NOTE) (test code = 2552) INTERPRETATION HEPATITIS B: (NOTE) (test code = 42546) INTERPRETATION HEPATITIS C: (NOTE) (test code = 41796) COMPREHENSIVE METABOLIC [id number] 00:00:00 Test Item Value Reference Range Interpretation Comments GLUCOSE (test code = 2217) 120 MG/DL BUN (test code = 2208) 9 MG/DL CREATININE (test code = 2214) 0.72 MG/DL eGFR AMER. (test code 120 ML/MIN/1.73 = 90957) eGFR NON- AMER. (test 103 ML/MIN/1.73 code = 48997) CALC BUN/CREAT (test code = 13 RATIO [...] BILIRUBIN, TOTAL (test code = 0.3 MG/DL 2207) ALKALINE PHOSPHATASE (test 93 U/L code = 2204) AST (test code = 2218) 20 U/L ALT (test code = 2219) 25 U/L CBC W/AUTO [id number] 00:00:00 Test Item Value Reference Range Interpretation [...] code = 1015) 215 K/UL CBC W/AUTO [id number] 00:00:00 Test Item Value Reference Range Interpretation [...] code = 1015) 215 K/UL COMPREHENSIVE METABOLIC [id number] 00:00:00 Test Item Value Reference Range Interpretation Comments GLUCOSE (test code = 2217) 120 MG/DL BUN (test code = 2208) 9 MG/DL CREATININE (test code = 2214) 0.72 MG/DL eGFR AMER. (test code 120 ML/MIN/1.73 = 18524) eGFR NON- AMER. (test 103 ML/MIN/1.73 code = 58347) CALC BUN/CREAT (test code = 13 RATIO [...] code = 2219) 25 U/L COMPREHENSIVE METABOLIC [id number] 00:00:00 Test Item Value Reference Range Interpretation Comments GLUCOSE (test code = 2217) 120 MG/DL BUN (test code = 2208) 9 MG/DL CREATININE (test code = 2214) 0.72 MG/DL eGFR AMER. (test code 120 ML/MIN/1.73 = 17775) eGFR NON- AMER. (test 103 ML/MIN/1.73 code = 78124) CALC BUN/CREAT (test code = 13 RATIO [...] code = 2219) 25 U/L CBC W/AUTO [id number] 00:00:00 Test Item Value Reference Range Interpretation [...] code = 1015) 215 K/UL CBC W/AUTO [id number] 00:00:00 Test Item Value Reference Range Interpretation [...] code = 1015) 215 K/UL CBC W/AUTO [id number] 00:00:00 Test Item Value Reference Range Interpretation [...] code = 1015) 215 K/UL CBC W/AUTO [id number] 00:00:00 Test Item Value Reference Range Interpretation [...] code = 1015) 215 K/UL COMPREHENSIVE METABOLIC [id number] 00:00:00 Test Item Value Reference Range Interpretation Comments GLUCOSE (test code = 2217) 120 MG/DL BUN (test code = 2208) 9 MG/DL CREATININE (test code = 2214) 0.72 MG/DL eGFR AMER. (test code 120 ML/MIN/1.73 = 45780) eGFR NON- AMER. (test 103 ML/MIN/1.73 code = 08435) CALC BUN/CREAT (test code = 13 RATIO 2235) SODIUM (test code = 2231) 140 MEQ/L POTASSIUM (test code = 2228) 4.3 MEQ/L CHLORIDE (test code = 2215) 100 MEQ/L CARBON DIOXIDE (test code = 29 MEQ/L 2206) CALCIUM (test code = 2209) 10.6 MG/DL PROTEIN, TOTAL (test code = 8.2 G/DL 2229) ALBUMIN (test code = 2201) 4.3 G/DL CALC GLOBULIN (test code = 3.9 G/DL 2240) CALC A/G RATIO (test code = 1.1 RATIO 2234) BILIRUBIN, TOTAL (test code = 0.3 MG/DL 2207) ALKALINE PHOSPHATASE (test 93 U/L code = 2204) AST (test code = 2218) 20 U/L ALT (test code = 2219) 25 U/L COMPREHENSIVE METABOLIC [id number] 00:00:00 Test Item Value Reference Range Interpretation Comments GLUCOSE (test code = 2217) 120 MG/DL BUN (test code = 2208) 9 MG/DL CREATININE (test code = 2214) 0.72 MG/DL eGFR AMER. (test code 120 ML/MIN/1.73 = 42041) eGFR NON- AMER. (test 103 ML/MIN/1.73 code = 01641) CALC BUN/CREAT (test code = 13 RATIO 2235) SODIUM (test code = 2231) 140 MEQ/L POTASSIUM (test code = 2228) 4.3 MEQ/L CHLORIDE (test code = 2215) 100 MEQ/L CARBON DIOXIDE (test code = 29 MEQ/L 2206) CALCIUM (test code = 2209) 10.6 MG/DL PROTEIN, TOTAL (test code = 8.2 G/DL 9) ALBUMIN (test code = 2201) 4.3 G/DL CALC GLOBULIN (test code = 3.9 G/DL 2240) CALC A/G RATIO (test code = 1.1 RATIO 2234) BILIRUBIN, TOTAL (test code = 0.3 MG/DL 2207) ALKALINE PHOSPHATASE (test 93 U/L code = 2204) AST (test code = 2218) 20 U/L ALT (test code = 2219) 25 U/L CBC W/AUTO [id number] 00:00:00 Test Item Value Reference Range Interpretation [...] code = 1015) 215 K/UL CBC W/AUTO [id number] 00:00:00 Test Item Value Reference Range Interpretation [...] code = 1015) 215 K/UL CBC W/AUTO [id number] 00:00:00 Test Item Value Reference Range Interpretation [...] code = 1015) 215 K/UL COMPREHENSIVE METABOLIC [id number] 00:00:00 Test Item Value Reference Range Interpretation Comments GLUCOSE (test code = 2217) 120 MG/DL BUN (test code = 2208) 9 MG/DL CREATININE (test code = 2214) 0.72 MG/DL eGFR AMER. (test code 120 ML/MIN/1.73 = 55387) eGFR NON- AMER. (test 103 ML/MIN/1.73 code = 32703) CALC BUN/CREAT (test code = 13 RATIO [...] code = 2219) 25 U/L COMPREHENSIVE METABOLIC [id number] 00:00:00 Test Item Value Reference Range Interpretation Comments GLUCOSE (test code = 2217) 120 MG/DL BUN (test code = 2208) 9 MG/DL CREATININE (test code = 2214) 0.72 MG/DL eGFR AMER. (test code 120 ML/MIN/1.73 = 81994) eGFR NON- AMER. (test 103 ML/MIN/1.73 code = 10229) CALC BUN/CREAT (test code = 13 RATIO [...] code = 2219) 25 U/L CBC W/AUTO [id number] 00:00:00 Test Item Value Reference Range Interpretation [...] code = 1015) 215 K/UL CBC W/AUTO [id number] 00:00:00 Test Item Value Reference Range Interpretation [...] code = 1015) 215 K/UL CBC W/AUTO [id number] 00:00:00 Test Item Value Reference Range Interpretation [...] code = 1015) 215 K/UL COMPREHENSIVE METABOLIC [id number] 00:00:00 Test Item Value Reference Range Interpretation Comments GLUCOSE (test code = 2217) 97 MG/DL BUN (test code = 2208) 5 MG/DL CREATININE (test code = 2214) 0.79 MG/DL eGFR AMER. (test code 107 ML/MIN/1.73 = 22393) eGFR NON- AMER. (test 92 ML/MIN/1.73 code = 53562) CALC BUN/CREAT (test code = 6 RATIO [...] code = 2219) 14 U/L COMPREHENSIVE METABOLIC [id number] 00:00:00 Test Item Value Reference Range Interpretation Comments GLUCOSE (test code = 2217) 97 MG/DL BUN (test code = 2208) 5 MG/DL CREATININE (test code = 2214) 0.79 MG/DL eGFR AMER. (test code 107 ML/MIN/1.73 = 20800) eGFR NON- AMER. (test 92 ML/MIN/1.73 code = 78820) CALC BUN/CREAT (test code = 6 RATIO [...] code = 2219) 14 U/L COMPREHENSIVE METABOLIC [id number] 00:00:00 Test Item Value Reference Range Interpretation Comments GLUCOSE (test code = 2217) 97 MG/DL BUN (test code = 2208) 5 MG/DL CREATININE (test code = 2214) 0.79 MG/DL eGFR AMER. (test code 107 ML/MIN/1.73 = 15702) eGFR NON- AMER. (test 92 ML/MIN/1.73 code = 23769) CALC BUN/CREAT (test code = 6 RATIO [...] code = 2219) 14 U/L COMPREHENSIVE METABOLIC [id number] 00:00:00 Test Item Value Reference Range Interpretation Comments GLUCOSE (test code = 2217) 97 MG/DL BUN (test code = 2208) 5 MG/DL CREATININE (test code = 2214) 0.79 MG/DL eGFR AMER. (test code 107 ML/MIN/1.73 = 51173) eGFR NON- AMER. (test 92 ML/MIN/1.73 code = 88356) CALC BUN/CREAT (test code = 6 RATIO 2235) SODIUM (test code = 2231) 138 MEQ/L POTASSIUM (test code = 2228) 4.1 MEQ/L CHLORIDE (test code = 2215) 96 MEQ/L CARBON DIOXIDE (test code = 29 MEQ/L 6) CALCIUM (test code = 2209) 11.9 MG/DL [...] code = 2219) 14 U/L COMPREHENSIVE METABOLIC [id number] 00:00:00 Test Item Value Reference Range Interpretation Comments GLUCOSE (test code = 2217) 97 MG/DL BUN (test code = 2208) 5 MG/DL CREATININE (test code = 2214) 0.79 MG/DL eGFR AMER. (test code 107 ML/MIN/1.73 = 59506) eGFR NON- AMER. (test 92 ML/MIN/1.73 code = 97736) CALC BUN/CREAT (test code = 6 RATIO [...] code = 2219) 14 U/L COMPREHENSIVE METABOLIC [id number] 00:00:00 Test Item Value Reference Range Interpretation Comments GLUCOSE (test code = 2217) 97 MG/DL BUN (test code = 2208) 5 MG/DL CREATININE (test code = 2214) 0.79 MG/DL eGFR AMER. (test code 107 ML/MIN/1.73 = 07360) eGFR NON- AMER. (test 92 ML/MIN/1.73 code = 56121) CALC BUN/CREAT (test code = 6 RATIO 2235) SODIUM (test code = 2231) 138 MEQ/L POTASSIUM (test code = 2228) 4.1 MEQ/L CHLORIDE (test code = 2215) 96 MEQ/L CARBON DIOXIDE (test code = 29 MEQ/L 6) CALCIUM (test code = 2209) 11.9 MG/DL [...] code = 2219) 14 U/L COMPREHENSIVE METABOLIC [id number] 00:00:00 Test Item Value Reference Range Interpretation Comments GLUCOSE (test code = 2217) 97 MG/DL BUN (test code = 2208) 5 MG/DL CREATININE (test code = 2214) 0.79 MG/DL eGFR AMER. (test code 107 ML/MIN/1.73 = 37142) eGFR NON- AMER. (test 92 ML/MIN/1.73 code = 54661) CALC BUN/CREAT (test code = 6 RATIO 2235) SODIUM (test code = 2231) 138 MEQ/L POTASSIUM (test code = 2228) 4.1 MEQ/L CHLORIDE (test code = 2215) 96 MEQ/L CARBON DIOXIDE (test code = 29 MEQ/L 6) CALCIUM (test code = 2209) 11.9 MG/DL [...] code = 2219) 14 U/L URINE AND [id number] 05:22:00 Test Item Value Reference Range Interpretation Comments UA Leuk Est (test Negative (11/17/17 12:22 code = UA Leuk Est) AM) [facility] AND [id number] 05:22:00 Test Item Value Reference Range Interpretation Comments UA Bacteria (test code = UA Occasional /HPF Bacteria) [facility] AND [id number] 05:22:00 Test Item Value Reference Range Interpretation Comments UA WBC (test code = 3 See_Comment [Automa kuldip message] The UA WBC) system which ge nerated this result transmit kuldip reference range : <=5. The reference range was not used to interpr et this result as abiodun l/abnormal. [facility] [id number] 05:22:00 Test Item Value Reference Range Interpretation Comments UA Mucus (test code = UA Mucus) Few /LPF [facility] [id number] 05:22:00 Test Item Value Reference Range Interpretation Comments UA Sq Epi (test code = UA Sq Occasional /LPF Epi) [facility] [id number] 05:22:00 Test Item Value Reference Range Interpretation Comments UA Nitrite (test code Negative (11/17/17 12:22 = UA Nitrite) AM) [facility] AND [id number] 05:22:00 Test Item Value Reference Range Interpretation Comments UA CaOx Judy (test code = UA Moderate /HPF CaOx Judy) [facility] AND [id number] 05:22:00 Test Item Value Reference Range Interpretation Comments UA Urobilinogen (test code = UA 4.0 0.1-1.0 Urobilinogen) [facility] AND [id number] 05:22:00 Test Item Value Reference Range Interpretation Comments UA Ketones (test code = UA Negative mg/dL Ketones) [facility] AND [id number] 05:22:00 Test Item Value Reference Range Interpretation Comments UA Blood (test code = Negative (11/17/17 12:22 UA Blood) AM) [facility] AND [id number] 05:22:00 Test Item Value Reference Range Interpretation Comments UA Bili (test code = Negative *NA*(11/17/17 UA Bili) 12:22 AM) [facility] AND [id number] 05:22:00 Test Item Value Reference Range Interpretation Comments UA Color (test code = Yellow *NA*(11/17/17 UA Color) 12:22 AM) [facility] AND [id number] 05:22:00 Test Item Value Reference Range Interpretation Comments UA Protein (test code = UA Negative mg/dL Protein) [facility] AND [id number] 05:22:00 Test Item Value Reference Range Interpretation Comments UA pH (test code = UA pH) 7.0 1 5.0-8.0 [facility] AND [id number] 05:22:00 Test Item Value Reference Range Interpretation Comments UA Spec Grav (test code = UA Spec 1.011 1 Grav) [facility] AND [id number] 05:22:00 Test Item Value Reference Range Interpretation Comments UA Turbidity (test code Slight *ABN*(11/17/17 = UA Turbidity) 12:22 AM) [facility] AND [id number] 05:22:00 Test Item Value Reference Range Interpretation Comments UA Glucose (test code = UA Negative mg/dL Glucose) [facility] AND [id number] 05:22:00 Test Item Value Reference Range Interpretation Comments UA Leuk Est (test Negative (11/17/17 12:22 code = UA Leuk Est) AM) [facility] AND [id number] 05:22:00 Test Item Value Reference Range Interpretation Comments UA Bacteria (test code = UA Occasional /HPF Bacteria) [facility] AND [id number] 05:22:00 Test Item Value Reference Range Interpretation Comments UA WBC (test code = 3 See_Comment [Automa kuldip message] The UA WBC) system which ge nerated this result transmit kuldip reference range : <=5. The reference range was not used to interpr et this result as abiodun l/abnormal. [facility] AND [id number] 05:22:00 Test Item Value Reference Range Interpretation Comments UA Mucus (test code = UA Mucus) Few /LPF [facility] AND [id number] 05:22:00 Test Item Value Reference Range Interpretation Comments UA Sq Epi (test code = UA Sq Occasional /LPF Epi) [facility] AND [id number] 05:22:00 Test Item Value Reference Range Interpretation Comments UA Nitrite (test code Negative (11/17/17 12:22 = UA Nitrite) AM) [facility] AND [id number] 05:22:00 Test Item Value Reference Range Interpretation Comments UA Leuk Est (test Negative (11/17/17 12:22 code = UA Leuk Est) AM) [facility] AND [id number] 05:22:00 Test Item Value Reference Range Interpretation Comments UA Bacteria (test code = UA Occasional /HPF Bacteria) [facility] AND [id number] 05:22:00 Test Item Value Reference Range Interpretation Comments UA WBC (test code = 3 See_Comment [Automa kuldip message] The UA WBC) system which ge nerated this result transmit kuldip reference range : <=5. The reference range was not used to interpr et this result as abiodun l/abnormal. [facility] AND [id number] 05:22:00 Test Item Value Reference Range Interpretation Comments UA Mucus (test code = UA Mucus) Few /LPF [facility] AND [id number] 05:22:00 Test Item Value Reference Range Interpretation Comments UA Sq Epi (test code = UA Sq Occasional /LPF Epi) [facility] AND [id number] 05:22:00 Test Item Value Reference Range Interpretation Comments UA Nitrite (test code Negative (11/17/17 12:22 = UA Nitrite) AM) [facility] AND [id number] 05:22:00 Test Item Value Reference Range Interpretation Comments UA CaOx Judy (test code = UA Moderate /HPF CaOx Judy) [facility] AND [id number] 05:22:00 Test Item Value Reference Range Interpretation Comments UA Urobilinogen (test code = UA 4.0 0.1-1.0 Urobilinogen) [facility] AND [id number] 05:22:00 Test Item Value Reference Range Interpretation Comments UA Ketones (test code = UA Negative mg/dL Ketones) [facility] AND [id number] 05:22:00 Test Item Value Reference Range Interpretation Comments UA CaOx Judy (test code = UA Moderate /HPF CaOx Judy) [facility] AND [id number] 05:22:00 Test Item Value Reference Range Interpretation Comments UA Blood (test code = Negative (11/17/17 12:22 UA Blood) AM) [facility] AND [id number] 05:22:00 Test Item Value Reference Range Interpretation Comments UA Bili (test code = Negative *NA*(11/17/17 UA Bili) 12:22 AM) [facility] AND [id number] 05:22:00 Test Item Value Reference Range Interpretation Comments UA Color (test code = Yellow *NA*(11/17/17 UA Color) 12:22 AM) [facility] AND [id number] 05:22:00 Test Item Value Reference Range Interpretation Comments UA Protein (test code = UA Negative mg/dL Protein) [facility] AND [id number] 05:22:00 Test Item Value Reference Range Interpretation Comments UA pH (test code = UA pH) 7.0 1 5.0-8.0 [facility] AND [id number] 05:22:00 Test Item Value Reference Range Interpretation Comments UA Spec Grav (test code = UA Spec 1.011 1 Grav) [facility] AND [id number] 05:22:00 Test Item Value Reference Range Interpretation Comments UA Turbidity (test code Slight *ABN*(11/17/17 = UA Turbidity) 12:22 AM) [facility] AND [id number] 05:22:00 Test Item Value Reference Range Interpretation Comments UA Glucose (test code = UA Negative mg/dL Glucose) [facility] AND [id number] 05:22:00 Test Item Value Reference Range Interpretation Comments UA Urobilinogen (test code = UA 4.0 0.1-1.0 Urobilinogen) [facility] AND [id number] 05:22:00 Test Item Value Reference Range Interpretation Comments UA Ketones (test code = UA Negative mg/dL Ketones) [facility] AND [id number] 05:22:00 Test Item Value Reference Range Interpretation Comments UA Blood (test code = Negative (11/17/17 12:22 UA Blood) AM) [facility] AND [id number] 05:22:00 Test Item Value Reference Range Interpretation Comments UA Bili (test code = Negative *NA*(11/17/17 UA Bili) 12:22 AM) [facility] AND [id number] 05:22:00 Test Item Value Reference Range Interpretation Comments UA Color (test code = Yellow *NA*(11/17/17 UA Color) 12:22 AM) [facility] AND [id number] 05:22:00 Test Item Value Reference Range Interpretation Comments UA Protein (test code = UA Negative mg/dL Protein) [facility] AND [id number] 05:22:00 Test Item Value Reference Range Interpretation Comments UA pH (test code = UA pH) 7.0 1 5.0-8.0 [facility] AND [id number] 05:22:00 Test Item Value Reference Range Interpretation Comments UA Spec Grav (test code = UA Spec 1.011 1 Grav) [facility] AND [id number] 05:22:00 Test Item Value Reference Range Interpretation Comments UA Turbidity (test code Slight *ABN*(11/17/17 = UA Turbidity) 12:22 AM) [facility] AND [id number] 05:22:00 Test Item Value Reference Range Interpretation Comments UA Glucose (test code = UA Negative mg/dL Glucose) [facility] AND [id number] 05:22:00 Test Item Value Reference Range Interpretation Comments UA Leuk Est (test Negative (11/17/17 12:22 code = UA Leuk Est) AM) [facility] AND [id number] 05:22:00 Test Item Value Reference Range Interpretation Comments UA Bacteria (test code = UA Occasional /HPF Bacteria) [facility] AND [id number] 05:22:00 Test Item Value Reference Range Interpretation Comments UA WBC (test code = 3 See_Comment [Automa kuldip message] The UA WBC) system which ge nerated this result transmit kuldip reference range : <=5. The reference range was not used to interpr et this result as abiodun l/abnormal. [facility] AND [id number] 05:22:00 Test Item Value Reference Range Interpretation Comments UA Mucus (test code = UA Mucus) Few /LPF [facility] AND [id number] 05:22:00 Test Item Value Reference Range Interpretation Comments UA Sq Epi (test code = UA Sq Occasional /LPF Epi) [facility] AND [id number] 05:22:00 Test Item Value Reference Range Interpretation Comments UA Nitrite (test code Negative (11/17/17 12:22 = UA Nitrite) AM) [facility] AND [id number] 05:22:00 Test Item Value Reference Range Interpretation Comments UA CaOx Judy (test code = UA Moderate /HPF CaOx Judy) [facility] AND [id number] 05:22:00 Test Item Value Reference Range Interpretation Comments UA Urobilinogen (test code = UA 4.0 0.1-1.0 Urobilinogen) [facility] AND [id number] 05:22:00 Test Item Value Reference Range Interpretation Comments UA Ketones (test code = UA Negative mg/dL Ketones) [facility] AND [id number] 05:22:00 Test Item Value Reference Range Interpretation Comments UA Blood (test code = Negative (11/17/17 12:22 UA Blood) AM) [facility] AND [id number] 05:22:00 Test Item Value Reference Range Interpretation Comments UA Bili (test code = Negative *NA*(11/17/17 UA Bili) 12:22 AM) [facility] AND [id number] 05:22:00 Test Item Value Reference Range Interpretation Comments UA Color (test code = Yellow *NA*(11/17/17 UA Color) 12:22 AM) [facility] AND [id number] 05:22:00 Test Item Value Reference Range Interpretation Comments UA Protein (test code = UA Negative mg/dL Protein) [facility] AND [id number] 05:22:00 Test Item Value Reference Range Interpretation Comments UA pH (test code = UA pH) 7.0 1 5.0-8.0 [facility] AND [id number] 05:22:00 Test Item Value Reference Range Interpretation Comments UA Spec Grav (test code = UA Spec 1.011 1 Grav) [facility] AND [id number] 05:22:00 Test Item Value Reference Range Interpretation Comments UA Turbidity (test code Slight *ABN*(11/17/17 = UA Turbidity) 12:22 AM) [facility] AND [id number] 05:22:00 Test Item Value Reference Range Interpretation Comments UA Glucose (test code = UA Negative mg/dL Glucose) [facility] AND [id number] 05:22:00 Test Item Value Reference Range Interpretation Comments UA Leuk Est (test Negative (11/17/17 12:22 code = UA Leuk Est) AM) [facility] AND [id number] 05:22:00 Test Item Value Reference Range Interpretation Comments UA Bacteria (test code = UA Occasional /HPF Bacteria) [facility] AND [id number] 05:22:00 Test Item Value Reference Range Interpretation Comments UA WBC (test code = 3 See_Comment [Automa kuldip message] The UA WBC) system which ge nerated this result transmit kuldip reference range : <=5. The reference range was not used to interpr et this result as abiodun l/abnormal. [facility] AND [id number] 05:22:00 Test Item Value Reference Range Interpretation Comments UA Mucus (test code = UA Mucus) Few /LPF [facility] AND [id number] 05:22:00 Test Item Value Reference Range Interpretation Comments UA Sq Epi (test code = UA Sq Occasional /LPF Epi) [facility] AND [id number] 05:22:00 Test Item Value Reference Range Interpretation Comments UA Nitrite (test code Negative (11/17/17 12:22 = UA Nitrite) AM) [facility] AND [id number] 05:22:00 Test Item Value Reference Range Interpretation Comments UA CaOx Judy (test code = UA Moderate /HPF CaOx Judy) [facility] AND [id number] 05:22:00 Test Item Value Reference Range Interpretation Comments UA Urobilinogen (test code = UA 4.0 0.1-1.0 Urobilinogen) [facility] AND [id number] 05:22:00 Test Item Value Reference Range Interpretation Comments UA Ketones (test code = UA Negative mg/dL Ketones) [facility] AND [id number] 05:22:00 Test Item Value Reference Range Interpretation Comments UA Blood (test code = Negative (11/17/17 12:22 UA Blood) AM) [facility] AND [id number] 05:22:00 Test Item Value Reference Range Interpretation Comments UA Bili (test code = Negative *NA*(11/17/17 UA Bili) 12:22 AM) [facility] AND [id number] 05:22:00 Test Item Value Reference Range Interpretation Comments UA Color (test code = Yellow *NA*(11/17/17 UA Color) 12:22 AM) [facility] AND [id number] 05:22:00 Test Item Value Reference Range Interpretation Comments UA Protein (test code = UA Negative mg/dL Protein) [facility] AND [id number] 05:22:00 Test Item Value Reference Range Interpretation Comments UA pH (test code = UA pH) 7.0 1 5.0-8.0 [facility] AND [id number] 05:22:00 Test Item Value Reference Range Interpretation Comments UA Spec Grav (test code = UA Spec 1.011 1 Grav) [facility] AND [id number] 05:22:00 Test Item Value Reference Range Interpretation Comments UA Turbidity (test code Slight *ABN*(11/17/17 = UA Turbidity) 12:22 AM) [facility] [id number] 05:22:00 Test Item Value Reference Range Interpretation Comments UA Glucose (test code = UA Negative mg/dL Glucose) [facility] [id number] 04:23:00 Test Item Value Reference Range Interpretation Comments Total CK (test code = Total CK) 191 12-191 [facility] [id number] 04:23:00 Test Item Value Reference Range Interpretation Comments Troponin-I (test code no gt See_Comment [Auto mated message] The = Troponin-I) system which g enerated this result transmit kuldip reference range : <=0.40. The reference r nilam was not used to interpr et this result as abiodun l/abnormal. [facility] [id number] 04:23:00 Test Item Value Reference Range Interpretation Comments eGFR (test code = eGFR) 104 [facility] [id number] 04:23:00 Test Item Value Reference Range Interpretation Comments Bili Total (test code = Bili Total) 0.5 0.2-1.3 [facility] [id number] 04:23:00 Test Item Value Reference Range Interpretation Comments Total Protein (test code = Total 8.9 6.4-8.4 Protein) [facility] [id number] 04:23:00 Test Item Value Reference Range Interpretation Comments ALT (test code = ALT) 24 See_Comment [Auto mated message] The system which ge nerated this result transmit kuldip reference range : <=65. The reference range was not used to interpr et this result as abiodun l/abnormal. [facility] [id number] 04:23:00 Test Item Value Reference Range Interpretation Comments Albumin Lvl (test code = Albumin Lvl) 3.7 3.5-5.0 [facility] [id number] 04:23:00 Test Item Value Reference Range Interpretation Comments AST (test code = AST) 27 See_Comment [Auto mated message] The system which ge nerated this result transmit kuldip reference range : <=37. The reference range was not used to interpr et this result as abiodun l/abnormal. [facility] [employer] [id number] 04:23:00 Test Item Value Reference Range Interpretation Comments Alk Phos (test code = Alk Phos) 86 39-136 [facility]2018-08-25 04:23:00 Test Item Value Reference Range Interpretation Comments Chloride Lvl (test code = Chloride Lvl) 103 95-109 [facility]2018-08-25 04:23:00 Test Item Value Reference Range Interpretation Comments CO2 (test code = CO2) 26 24-32 [facility]2018-08-25 04:23:00 Test Item Value Reference Range Interpretation Comments Calcium Lvl (test code = Calcium Lvl) 10.8 8.5-10.5 [facility]2018-08-25 04:23:00 Test Item Value Reference Range Interpretation Comments Potassium Lvl (test code = Potassium 4.1 3.5-5.1 Lvl) [facility]2018-08-25 04:23:00 Test Item Value Reference Range Interpretation Comments Sodium Lvl (test code = Sodium Lvl) 138 135-145 [facility]2018-08-25 04:23:00 Test Item Value Reference Range Interpretation Comments Glucose Lvl (test code = Glucose Lvl) 102 70-99 [facility]2018-08-25 04:23:00 Test Item Value Reference Range Interpretation Comments BUN (test code = BUN) 6 7-22 [facility]2018-08-25 04:23:00 Test Item Value Reference Range Interpretation Comments Creatinine Lvl (test code = Creatinine 0.80 0.50-1.40 Lvl) [facility]2018-08-25 04:23:00 Test Item Value Reference Range Interpretation Comments Globulin (test code = Globulin) 5.2 2.7-4.2 [facility]2018-08-25 04:23:00 Test Item Value Reference Range Interpretation Comments AGAP (test code = AGAP) 13.1 10.0-20.0 [facility]2018-08-25 04:23:00 Test Item Value Reference Range Interpretation Comments A/G Ratio (test code = A/G Ratio) 0.7 1 0.7-1.6 [facility]2018-08-25 04:23:00 Test Item Value Reference Range Interpretation Comments B/C Ratio (test code = B/C Ratio) 8 1 6-25 [facility] [id number] 04:23:00 Test Item Value Reference Range Interpretation Comments Phosphorus (test code = Phosphorus) 1.9 2.5-4.5 [facility]inteCHE[facility] [id number] 04:23:00 Test Item Value Reference Range Interpretation Comments Magnesium Lvl (test code = Magnesium 2.2 1.8-2.4 Lvl) [id number] 04:23:00 Test Item Value Reference Range Interpretation Comments S Preg (test code = S Negative *NA*(11/16/17 Preg) 11:23 PM) [facility] [id number] 04:23:00 Test Item Value Reference Range Interpretation Comments Hct (test code = Hct) 39.7 36.0-48.0 [facility] CenterLuvubcvDWUVJGLWRG7899-73-28 04:23:00 Test Item Value Reference Range Interpretation Comments Hgb (test code = Hgb) 14.0 12.0-16.0 [facility] C[id number] 04:23:00 Test Item Value Reference Range Interpretation Comments WBC (test code = WBC) 7.3 3.7-10.4 [facility] C[id number] 04:23:00 Test Item Value Reference Range Interpretation Comments RBC (test code = RBC) 4.56 4.20-5.40 [facility] [id number] 04:23:00 Test Item Value Reference Range Interpretation Comments MCHC (test code = MCHC) 35.2 32.0-36.0 [facility] CenterWcuojvzXAARPWEAYT5325-97-28 04:23:00 Test Item Value Reference Range Interpretation Comments MCV (test code = MCV) 87.1 80.0-98.0 [facility] CenterUpzkzmwEMTOHVWVHJ3826-79-40 04:23:00 Test Item Value Reference Range Interpretation Comments MPV (test code = MPV) 8.4 7.4-10.4 [facility] [id number] 04:23:00 Test Item Value Reference Range Interpretation Comments RDW (test code = RDW) 13.0 11.5-14.5 [facility] CenterWhfcmwrTQKSWBAYFB8906-23-37 04:23:00 Test Item Value Reference Range Interpretation Comments MCH (test code = MCH) 30.7 pg 27.0-31.0 [facility] CenterRkgtgdxFWIDQGJOVR9927-54-26 04:23:00 Test Item Value Reference Range Interpretation Comments Platelet (test code = Platelet) 263 133-450 [facility] CenterNuedszpUHUEPTVOBT4262-66-14 04:23:00 Test Item Value Reference Range Interpretation Comments D-Dimer (test code = D-Dimer) 0.27 [facility] C[id number] 04:23:00 Test Item Value Reference Range Interpretation Comments Lymphocytes # (test code = Lymphocytes 2.3 1.0-5.5 #) [facility] CenterHhfdnosRIWBBVFJVT1655-33-58 04:23:00 Test Item Value Reference Range Interpretation Comments Segs (test code = Segs) 58.7 45.0-75.0 [facility] CenterOjlrvnfPJCUNFRLYN3565-03-37 04:23:00 Test Item Value Reference Range Interpretation Comments Lymphocytes (test code = Lymphocytes) 31.5 20.0-40.0 [facility] CenterClhvysjLMKVLIGMKT7991-23-79 04:23:00 Test Item Value Reference Range Interpretation Comments Neutrophils # (test code = Neutrophils 4.3 1.5-8.1 #) [facility] CenterFkeniwzHMQVGABQVX9128-19-37 04:23:00 Test Item Value Reference Range Interpretation Comments Basophils (test code = 0.6 See_Comment [Aut omated message] The Basophils) system which ge nerated this result tra nsmitted reference range : <=1.0. The reference r nilam was not used to int erpret this result as normal/abnormal . [facility] CenterKuyyhajDJXSXOVIIY6740-97-13 04:23:00 Test Item Value Reference Range Interpretation Comments Monocytes (test code = Monocytes) 6.7 2.0-12.0 [facility] CenterRrdoxplYZRSUESXMW5401-11-44 04:23:00 Test Item Value Reference Range Interpretation Comments Eosinophils (test code = 2.5 See_Comment [A utomated message] The Eosinophils) system which ge nerated this result tra nsmitted reference range : <=4.0. The reference r nilam was not used to int erpret this result as normal/abnormal . [facility] CenterWapfgylWURLFYCKPQ8164-47-02 04:23:00 Test Item Value Reference Range Interpretation Comments Eosinophils # (test code 0.2 See_Comment [A utomated message] The = Eosinophils #) system whic h generated this result tra nsmitted reference range : <=0.5. The reference r nilam was not used to int erpret this result as normal/abnormal . [facility] P[id number] 04:23:00 Test Item Value Reference Range Interpretation Comments Monocytes # (test code 0.5 See_Comment [Aut omated message] The = Monocytes #) system which generated this result tra nsmitted reference range : <=0.8. The reference r nilam was not used to int erpret this result as normal/abnormal . [facility] PointeHealint [id number] 04:23:00 Test Item Value Reference Range Interpretation Comments Total CK (test code = Total CK) 191 12-191 [facility] [id number] 04:23:00 Test Item Value Reference Range Interpretation Comments Troponin-I (test code no gt See_Comment [Auto mated message] The = Troponin-I) system which g enerated this result transmit kuldip reference range : <=0.40. The reference r nilam was not used to interpr et this result as abiodun l/abnormal. [facility] [id number] 04:23:00 Test Item Value Reference Range Interpretation Comments eGFR (test code = eGFR) 104 [facility] [id number] 04:23:00 Test Item Value Reference Range Interpretation Comments Bili Total (test code = Bili Total) 0.5 0.2-1.3 [facility] [id number] 04:23:00 Test Item Value Reference Range Interpretation Comments Total Protein (test code = Total 8.9 6.4-8.4 Protein) [facility] [id number] 04:23:00 Test Item Value Reference Range Interpretation Comments ALT (test code = ALT) 24 See_Comment [Auto mated message] The system which ge nerated this result transmit kuldip reference range : <=65. The reference range was not used to interpr et this result as abiodun l/abnormal. [facility] [employer] [id number] 04:23:00 Test Item Value Reference Range Interpretation Comments Albumin Lvl (test code = Albumin Lvl) 3.7 3.5-5.0 [facility] [employer] [id number] 04:23:00 Test Item Value Reference Range Interpretation Comments AST (test code = AST) 27 See_Comment [Auto mated message] The system which ge nerated this result transmit kuldip reference range : <=37. The reference range was not used to interpr et this result as abiodun l/abnormal. [facility]2018-08-25 04:23:00 Test Item Value Reference Range Interpretation Comments Alk Phos (test code = Alk Phos) 86 39-136 [facility]2018-08-25 04:23:00 Test Item Value Reference Range Interpretation Comments Chloride Lvl (test code = Chloride Lvl) 103 95-109 [facility]2018-08-25 04:23:00 Test Item Value Reference Range Interpretation Comments CO2 (test code = CO2) 26 24-32 [facility]2018-08-25 04:23:00 Test Item Value Reference Range Interpretation Comments Calcium Lvl (test code = Calcium Lvl) 10.8 8.5-10.5 [facility]2018-08-25 04:23:00 Test Item Value Reference Range Interpretation Comments Potassium Lvl (test code = Potassium 4.1 3.5-5.1 Lvl) [facility]2018-08-25 04:23:00 Test Item Value Reference Range Interpretation Comments Sodium Lvl (test code = Sodium Lvl) 138 135-145 [facility]2018-08-25 04:23:00 Test Item Value Reference Range Interpretation Comments Glucose Lvl (test code = Glucose Lvl) 102 70-99 [facility]2018-08-25 04:23:00 Test Item Value Reference Range Interpretation Comments BUN (test code = BUN) 6 7-22 [facility]2018-08-25 04:23:00 Test Item Value Reference Range Interpretation Comments Creatinine Lvl (test code = Creatinine 0.80 0.50-1.40 Lvl) [facility]2018-08-25 04:23:00 Test Item Value Reference Range Interpretation Comments Globulin (test code = Globulin) 5.2 2.7-4.2 [facility]2018-08-25 04:23:00 Test Item Value Reference Range Interpretation Comments AGAP (test code = AGAP) 13.1 10.0-20.0 [facility]2018-08-25 04:23:00 Test Item Value Reference Range Interpretation Comments A/G Ratio (test code = A/G Ratio) 0.7 1 0.7-1.6 [facility]2018-08-25 04:23:00 Test Item Value Reference Range Interpretation Comments B/C Ratio (test code = B/C Ratio) 8 1 6-25 [facility]2018-08-25 04:23:00 Test Item Value Reference Range Interpretation Comments Phosphorus (test code = Phosphorus) 1.9 2.5-4.5 [facility]2018-08-25 04:23:00 Test Item Value Reference Range Interpretation Comments Magnesium Lvl (test code = Magnesium 2.2 1.8-2.4 Lvl) [place] [id number] 04:23:00 Test Item Value Reference Range Interpretation Comments S Preg (test code = S Negative *NA*(11/16/17 Preg) 11:23 PM) [facility] CenterYzzifkmRFRSWSVPTJ6082-24-57 04:23:00 Test Item Value Reference Range Interpretation Comments Hct (test code = Hct) 39.7 36.0-48.0 [facility] CenterGxadjpiSCICXZMOXZ0766-95-51 04:23:00 Test Item Value Reference Range Interpretation Comments Hgb (test code = Hgb) 14.0 12.0-16.0 [facility] CenterIftrsexLCQWOHDAQE5898-20-33 04:23:00 Test Item Value Reference Range Interpretation Comments WBC (test code = WBC) 7.3 3.7-10.4 [facility] CenterIspzjxhLWJZNKJGNC4007-33-21 04:23:00 Test Item Value Reference Range Interpretation Comments RBC (test code = RBC) 4.56 4.20-5.40 [facility] CenterJxljphxIZLMJIHTMQ0650-33-97 04:23:00 Test Item Value Reference Range Interpretation Comments MCHC (test code = MCHC) 35.2 32.0-36.0 [facility] CenterFmfoqywJTGQQBSFRM0161-12-57 04:23:00 Test Item Value Reference Range Interpretation Comments MCV (test code = MCV) 87.1 80.0-98.0 [facility] CenterPcecxmuXYPDRHETUC5134-50-09 04:23:00 Test Item Value Reference Range Interpretation Comments MPV (test code = MPV) 8.4 7.4-10.4 [facility] CenterXvtmiraWPYURQUQNC7492-12-54 04:23:00 Test Item Value Reference Range Interpretation Comments RDW (test code = RDW) 13.0 11.5-14.5 [facility] CenterOpzcjsaAGEQIWYTIC7033-90-73 04:23:00 Test Item Value Reference Range Interpretation Comments MCH (test code = MCH) 30.7 pg 27.0-31.0 [facility] CenterRasvxlhCGMPDLDKRU8214-18-33 04:23:00 Test Item Value Reference Range Interpretation Comments Platelet (test code = Platelet) 263 133-450 [facility] CenterXtzmoiqCSCYVBLEYW9425-87-23 04:23:00 Test Item Value Reference Range Interpretation Comments D-Dimer (test code = D-Dimer) 0.27 [facility] CenterSigpdcvDZCBULQQWU7583-88-77 04:23:00 Test Item Value Reference Range Interpretation Comments Lymphocytes # (test code = Lymphocytes 2.3 1.0-5.5 #) [facility] CenterLmiqzmkOZUZEYGWAZ7158-37-73 04:23:00 Test Item Value Reference Range Interpretation Comments Segs (test code = Segs) 58.7 45.0-75.0 [facility] CenterEollgmuSVNATBYNWP5642-71-98 04:23:00 Test Item Value Reference Range Interpretation Comments Lymphocytes (test code = Lymphocytes) 31.5 20.0-40.0 [facility] CenterUcobyelRZRHMFFWSP0647-72-97 04:23:00 Test Item Value Reference Range Interpretation Comments Neutrophils # (test code = Neutrophils 4.3 1.5-8.1 #) [facility] CenterKfecptaRDEUSECDGA2947-60-07 04:23:00 Test Item Value Reference Range Interpretation Comments Basophils (test code = 0.6 See_Comment [Aut omated message] The Basophils) system which ge nerated this result tra nsmitted reference range : <=1.0. The reference r nilam was not used to int erpret this result as normal/abnormal . [facility] CenterKzdyzipBUSQHHEFSF8078-10-78 04:23:00 Test Item Value Reference Range Interpretation Comments Monocytes (test code = Monocytes) 6.7 2.0-12.0 [facility] CenterTznrxbsOACCZLWJNH3807-40-22 04:23:00 Test Item Value Reference Range Interpretation Comments Eosinophils (test code = 2.5 See_Comment [A utomated message] The Eosinophils) system which ge nerated this result tra nsmitted reference range : <=4.0. The reference r nilam was not used to int erpret this result as normal/abnormal . [facility] HospitalJdwgyueDMLBKSIHHZ2262-72-04 04:23:00 Test Item Value Reference Range Interpretation Comments Eosinophils # (test code 0.2 See_Comment [A utomated message] The = Eosinophils #) system whic h generated this result tra nsmitted reference range : <=0.5. The reference r nilam was not used to int erpret this result as normal/abnormal . [facility] HospitalJieqeonBLOMUXLSMS4781-23-33 04:23:00 Test Item Value Reference Range Interpretation Comments Monocytes # (test code 0.5 See_Comment [Aut omated message] The = Monocytes #) system which generated this result tra nsmitted reference range : <=0.8. The reference r nilam was not used to int erpret this result as normal/abnormal . [facility] HospitalW[facility]2018-08-25 04:23:00 Test Item Value Reference Range Interpretation Comments Total CK (test code = Total CK) 191 12-191 [facility]2018-08-25 04:23:00 Test Item Value Reference Range Interpretation Comments Troponin-I (test code no gt See_Comment [Auto mated message] The = Troponin-I) system which g enerated this result transmit kuldip reference range : <=0.40. The reference r nilam was not used to interpr et this result as abiodun l/abnormal. [facility] 250ok2018-08-25 04:23:00 Test Item Value Reference Range Interpretation Comments eGFR (test code = eGFR) 104 [facility] [employer]ok2018-08-25 04:23:00 Test Item Value Reference Range Interpretation Comments Bili Total (test code = Bili Total) 0.5 0.2-1.3 [facility] 250ok2018-08-25 04:23:00 Test Item Value Reference Range Interpretation Comments Total Protein (test code = Total 8.9 6.4-8.4 Protein) [facility] 250ok2018-08-25 04:23:00 Test Item Value Reference Range Interpretation Comments ALT (test code = ALT) 24 See_Comment [Auto mated message] The system which ge nerated this result transmit kuldip reference range : <=65. The reference range was not used to interpr et this result as abiodun l/abnormal. [facility]2018-08-25 04:23:00 Test Item Value Reference Range Interpretation Comments Albumin Lvl (test code = Albumin Lvl) 3.7 3.5-5.0 [facility]2018-08-25 04:23:00 Test Item Value Reference Range Interpretation Comments AST (test code = AST) 27 See_Comment [Auto mated message] The system which ge nerated this result transmit kuldip reference range : <=37. The reference range was not used to interpr et this result as abiodun l/abnormal. [facility]2018-08-25 04:23:00 Test Item Value Reference Range Interpretation Comments Alk Phos (test code = Alk Phos) 86 39-136 [facility]2018-08-25 04:23:00 Test Item Value Reference Range Interpretation Comments Chloride Lvl (test code = Chloride Lvl) 103 95-109 [facility]2018-08-25 04:23:00 Test Item Value Reference Range Interpretation Comments CO2 (test code = CO2) 26 24-32 [facility]2018-08-25 04:23:00 Test Item Value Reference Range Interpretation Comments Calcium Lvl (test code = Calcium Lvl) 10.8 8.5-10.5 [facility]2018-08-25 04:23:00 Test Item Value Reference Range Interpretation Comments Potassium Lvl (test code = Potassium 4.1 3.5-5.1 Lvl) [facility]2018-08-25 04:23:00 Test Item Value Reference Range Interpretation Comments Sodium Lvl (test code = Sodium Lvl) 138 135-145 [facility]2018-08-25 04:23:00 Test Item Value Reference Range Interpretation Comments Glucose Lvl (test code = Glucose Lvl) 102 70-99 [facility]2018-08-25 04:23:00 Test Item Value Reference Range Interpretation Comments BUN (test code = BUN) 6 7-22 [facility]2018-08-25 04:23:00 Test Item Value Reference Range Interpretation Comments Creatinine Lvl (test code = Creatinine 0.80 0.50-1.40 Lvl) [facility]2018-08-25 04:23:00 Test Item Value Reference Range Interpretation Comments Globulin (test code = Globulin) 5.2 2.7-4.2 [facility]2018-08-25 04:23:00 Test Item Value Reference Range Interpretation Comments AGAP (test code = AGAP) 13.1 10.0-20.0 [facility]2018-08-25 04:23:00 Test Item Value Reference Range Interpretation Comments A/G Ratio (test code = A/G Ratio) 0.7 1 0.7-1.6 [facility]2018-08-25 04:23:00 Test Item Value Reference Range Interpretation Comments B/C Ratio (test code = B/C Ratio) 8 1 6-25 [facility]2018-08-25 04:23:00 Test Item Value Reference Range Interpretation Comments Phosphorus (test code = Phosphorus) 1.9 2.5-4.5 [facility]2018-08-25 04:23:00 Test Item Value Reference Range Interpretation Comments Magnesium Lvl (test code = Magnesium 2.2 1.8-2.4 Lvl) [place] [id number] 04:23:00 Test Item Value Reference Range Interpretation Comments S Preg (test code = S Negative *NA*(11/16/17 Preg) 11:23 PM) [facility]KzsedayKKCLVFWNTV9110-68-12 04:23:00 Test Item Value Reference Range Interpretation Comments Hct (test code = Hct) 39.7 36.0-48.0 [facility] CenterYwwsydfOKDWLHECUR4970-52-09 04:23:00 Test Item Value Reference Range Interpretation Comments Hgb (test code = Hgb) 14.0 12.0-16.0 [facility] CenterXbpryxtAEXEJKTXUA0786-84-07 04:23:00 Test Item Value Reference Range Interpretation Comments WBC (test code = WBC) 7.3 3.7-10.4 [facility] CenterSgufupaTOTRVVTVJJ5099-17-20 04:23:00 Test Item Value Reference Range Interpretation Comments RBC (test code = RBC) 4.56 4.20-5.40 [facility] CenterYegawoyCIDKWEYYSC3626-03-97 04:23:00 Test Item Value Reference Range Interpretation Comments MCHC (test code = MCHC) 35.2 32.0-36.0 [facility] CenterVithckwAHEAULHACQ6949-77-09 04:23:00 Test Item Value Reference Range Interpretation Comments MCV (test code = MCV) 87.1 80.0-98.0 [facility] CenterZdvukdySJZMRKPHGR9743-06-39 04:23:00 Test Item Value Reference Range Interpretation Comments MPV (test code = MPV) 8.4 7.4-10.4 [facility] CenterBfylqniNQUFTQRYIB7246-92-95 04:23:00 Test Item Value Reference Range Interpretation Comments RDW (test code = RDW) 13.0 11.5-14.5 [facility] CenterRzyxvqpLGQRMTZVXM5935-65-88 04:23:00 Test Item Value Reference Range Interpretation Comments MCH (test code = MCH) 30.7 pg 27.0-31.0 [facility] CenterDcmdrndKNWHZRNIRZ2834-52-18 04:23:00 Test Item Value Reference Range Interpretation Comments Platelet (test code = Platelet) 263 133-450 [facility] CenterOxorlnbXVEWCFNAGP9596-49-63 04:23:00 Test Item Value Reference Range Interpretation Comments D-Dimer (test code = D-Dimer) 0.27 [facility] CenterKiaiatqWINSZTGSCL0083-98-20 04:23:00 Test Item Value Reference Range Interpretation Comments Lymphocytes # (test code = Lymphocytes 2.3 1.0-5.5 #) [facility] CenterIdfydphPOFEFUKWIS0515-76-39 04:23:00 Test Item Value Reference Range Interpretation Comments Segs (test code = Segs) 58.7 45.0-75.0 [facility] CenterFullrjeDQVYBRVWUO6018-76-98 04:23:00 Test Item Value Reference Range Interpretation Comments Lymphocytes (test code = Lymphocytes) 31.5 20.0-40.0 [facility] CenterCedubgwLJKBYIBGYZ2907-05-56 04:23:00 Test Item Value Reference Range Interpretation Comments Neutrophils # (test code = Neutrophils 4.3 1.5-8.1 #) [facility] CenterHgqfgrpFFHBXIXSMS2862-13-17 04:23:00 Test Item Value Reference Range Interpretation Comments Basophils (test code = 0.6 See_Comment [Aut omated message] The Basophils) system which ge nerated this result tra nsmitted reference range : <=1.0. The reference r nilam was not used to int erpret this result as normal/abnormal . [facility] CenterTgirdfzIJXTRGMTIR7168-13-83 04:23:00 Test Item Value Reference Range Interpretation Comments Monocytes (test code = Monocytes) 6.7 2.0-12.0 [facility] CenterGcnyyyfACXPHVGYQX7534-45-70 04:23:00 Test Item Value Reference Range Interpretation Comments Eosinophils (test code = 2.5 See_Comment [A utomated message] The Eosinophils) system which ge nerated this result tra nsmitted reference range : <=4.0. The reference r nilam was not used to int erpret this result as normal/abnormal . [facility]inteToaitadPAJNHKEDHK6818-80-52 04:23:00 Test Item Value Reference Range Interpretation Comments Eosinophils # (test code 0.2 See_Comment [A utomated message] The = Eosinophils #) system whic h generated this result tra nsmitted reference range : <=0.5. The reference r nilam was not used to int erpret this result as normal/abnormal . [facility] HospitalOzkqbyiGGKTENEYBO7498-44-62 04:23:00 Test Item Value Reference Range Interpretation Comments Monocytes # (test code 0.5 See_Comment [Aut omated message] The = Monocytes #) system which generated this result tra nsmitted reference range : <=0.8. The reference r nilam was not used to int erpret this result as normal/abnormal . [facility] [employer] YCRYJJI0038-52-06 04:23:00 Test Item Value Reference Range Interpretation Comments Total CK (test code = Total CK) 191 12-191 [facility] HospitalWikipixel VORFCIG7400-57-63 04:23:00 Test Item Value Reference Range Interpretation Comments Troponin-I (test code no gt See_Comment [Auto mated message] The = Troponin-I) system which g enerated this result transmit kuldip reference range : <=0.40. The reference r nilam was not used to interpr et this result as abiodun l/abnormal. [facility] 250ok2018-08-25 04:23:00 Test Item Value Reference Range Interpretation Comments eGFR (test code = eGFR) 104 [facility] 250ok2018-08-25 04:23:00 Test Item Value Reference Range Interpretation Comments Bili Total (test code = Bili Total) 0.5 0.2-1.3 [facility] 250ok2018-08-25 04:23:00 Test Item Value Reference Range Interpretation Comments Total Protein (test code = Total 8.9 6.4-8.4 Protein) [facility] 250ok2018-08-25 04:23:00 Test Item Value Reference Range Interpretation Comments ALT (test code = ALT) 24 See_Comment [Auto mated message] The system which ge nerated this result transmit kuldip reference range : <=65. The reference range was not used to interpr et this result as abiodun l/abnormal. [facility]2018-08-25 04:23:00 Test Item Value Reference Range Interpretation Comments Albumin Lvl (test code = Albumin Lvl) 3.7 3.5-5.0 [facility]2018-08-25 04:23:00 Test Item Value Reference Range Interpretation Comments AST (test code = AST) 27 See_Comment [Auto mated message] The system which ge nerated this result transmit kuldip reference range : <=37. The reference range was not used to interpr et this result as abiodun l/abnormal. [facility]2018-08-25 04:23:00 Test Item Value Reference Range Interpretation Comments Alk Phos (test code = Alk Phos) 86 39-136 [facility]2018-08-25 04:23:00 Test Item Value Reference Range Interpretation Comments Chloride Lvl (test code = Chloride Lvl) 103 95-109 [facility]2018-08-25 04:23:00 Test Item Value Reference Range Interpretation Comments CO2 (test code = CO2) 26 24-32 [facility]2018-08-25 04:23:00 Test Item Value Reference Range Interpretation Comments Calcium Lvl (test code = Calcium Lvl) 10.8 8.5-10.5 [facility] HospitalResource DataANSON COMMUNITY HOSPITALNVVBT8593-23-07 04:23:00 Test Item Value Reference Range Interpretation Comments Potassium Lvl (test code = Potassium 4.1 3.5-5.1 Lvl) [facility]2018-08-25 04:23:00 Test Item Value Reference Range Interpretation Comments Sodium Lvl (test code = Sodium Lvl) 138 135-145 [facility]2018-08-25 04:23:00 Test Item Value Reference Range Interpretation Comments Glucose Lvl (test code = Glucose Lvl) 102 70-99 [facility]2018-08-25 04:23:00 Test Item Value Reference Range Interpretation Comments BUN (test code = BUN) 6 7-22 [facility]2018-08-25 04:23:00 Test Item Value Reference Range Interpretation Comments Creatinine Lvl (test code = Creatinine 0.80 0.50-1.40 Lvl) [facility]2018-08-25 04:23:00 Test Item Value Reference Range Interpretation Comments Globulin (test code = Globulin) 5.2 2.7-4.2 [facility]2018-08-25 04:23:00 Test Item Value Reference Range Interpretation Comments AGAP (test code = AGAP) 13.1 10.0-20.0 [facility]2018-08-25 04:23:00 Test Item Value Reference Range Interpretation Comments A/G Ratio (test code = A/G Ratio) 0.7 1 0.7-1.6 [facility]2018-08-25 04:23:00 Test Item Value Reference Range Interpretation Comments B/C Ratio (test code = B/C Ratio) 8 1 6-25 [facility]2018-08-25 04:23:00 Test Item Value Reference Range Interpretation Comments Phosphorus (test code = Phosphorus) 1.9 2.5-4.5 [facility]2018-08-25 04:23:00 Test Item Value Reference Range Interpretation Comments Magnesium Lvl (test code = Magnesium 2.2 1.8-2.4 Lvl) [place] [id number] 04:23:00 Test Item Value Reference Range Interpretation Comments S Preg (test code = S Negative *NA*(11/16/17 Preg) 11:23 PM) [facility] CenterOmkeyfzHWTFRMGRTJ9036-66-88 04:23:00 Test Item Value Reference Range Interpretation Comments Hct (test code = Hct) 39.7 36.0-48.0 [facility] CenterQgrbcffGJMWMIXWVI2191-65-18 04:23:00 Test Item Value Reference Range Interpretation Comments Hgb (test code = Hgb) 14.0 12.0-16.0 [facility] CenterMowtcfwKLNCRUWGUQ1549-49-36 04:23:00 Test Item Value Reference Range Interpretation Comments WBC (test code = WBC) 7.3 3.7-10.4 [facility] CenterDcezulbRTLSJGOQWU6935-46-06 04:23:00 Test Item Value Reference Range Interpretation Comments RBC (test code = RBC) 4.56 4.20-5.40 [place] 243558-08-25 04:23:00 Test Item Value Reference Range Interpretation Comments MCHC (test code = MCHC) 35.2 32.0-36.0 [facility] CenterMmcxmkfIGNMYOGGSU6651-03-09 04:23:00 Test Item Value Reference Range Interpretation Comments MCV (test code = MCV) 87.1 80.0-98.0 [facility] CenterXmggppmNEKMGLSNNW9815-60-53 04:23:00 Test Item Value Reference Range Interpretation Comments MPV (test code = MPV) 8.4 7.4-10.4 [facility] CenterQunuwwzUXFTLJJLTK0993-99-70 04:23:00 Test Item Value Reference Range Interpretation Comments RDW (test code = RDW) 13.0 11.5-14.5 [facility] CenterDpgavzgLRRDUTYYKP9102-32-60 04:23:00 Test Item Value Reference Range Interpretation Comments MCH (test code = MCH) 30.7 pg 27.0-31.0 [facility] CenterOrtaefqUUOKGJCOFX3495-94-66 04:23:00 Test Item Value Reference Range Interpretation Comments Platelet (test code = Platelet) 263 133-450 [facility] CenterYsnikzbPTRYKPIQLJ7381-38-64 04:23:00 Test Item Value Reference Range Interpretation Comments D-Dimer (test code = D-Dimer) 0.27 [facility] CenterUopruczUHKSNKPQLL0851-63-03 04:23:00 Test Item Value Reference Range Interpretation Comments Lymphocytes # (test code = Lymphocytes 2.3 1.0-5.5 #) [facility] CenterVelzjkqPTESGHRCYG0102-85-83 04:23:00 Test Item Value Reference Range Interpretation Comments Segs (test code = Segs) 58.7 45.0-75.0 [facility] CenterXkvjmxlULUHNJSDNA3373-52-72 04:23:00 Test Item Value Reference Range Interpretation Comments Lymphocytes (test code = Lymphocytes) 31.5 20.0-40.0 [facility] CenterLiwdvqgDBIRSIVKAK4027-09-11 04:23:00 Test Item Value Reference Range Interpretation Comments Neutrophils # (test code = Neutrophils 4.3 1.5-8.1 #) [facility] CenterVomahzaDHPYKUYGWE2220-94-79 04:23:00 Test Item Value Reference Range Interpretation Comments Basophils (test code = 0.6 See_Comment [Aut omated message] The Basophils) system which ge nerated this result tra nsmitted reference range : <=1.0. The reference r nilam was not used to int erpret this result as normal/abnormal . [facility]JJJWLQWYS2212-91-[facility] 04:23:00 Test Item Value Reference Range Interpretation Comments Monocytes (test code = Monocytes) 6.7 2.0-12.0 [facility] CenterGfxacccPKYCVAGGZN6298-80-30 04:23:00 Test Item Value Reference Range Interpretation Comments Eosinophils (test code = 2.5 See_Comment [A utomated message] The Eosinophils) system which ge nerated this result tra nsmitted reference range : <=4.0. The reference r nilam was not used to int erpret this result as normal/abnormal . [facility] CenterCzobdqlNVQMRUOUAO5759-40-54 04:23:00 Test Item Value Reference Range Interpretation Comments Eosinophils # (test code 0.2 See_Comment [A utomated message] The = Eosinophils #) system whic h generated this result tra nsmitted reference range : <=0.5. The reference r nilam was not used to int erpret this result as normal/abnormal . [facility] CenterOagebmbQQWQXVEUJT4431-83-77 04:23:00 Test Item Value Reference Range Interpretation Comments Monocytes # (test code 0.5 See_Comment [Aut omated message] The = Monocytes #) system which generated this result tra nsmitted reference range : <=0.8. The reference r nilam was not used to int erpret this result as normal/abnormal . [facility]inteHealint JXCOYHU0910-18-52 04:23:00 Test Item Value Reference Range Interpretation Comments Total CK (test code = Total CK) 191 12-191 [facility]inteHealint NJXUMTL6395-10-71 04:23:00 Test Item Value Reference Range Interpretation Comments Troponin-I (test code no gt See_Comment [Auto mated message] The = Troponin-I) system which g enerated this result transmit kuldip reference range : <=0.40. The reference r nilam was not used to interpr et this result as abiodun l/abnormal. [facility] HospitalCliq OKFLJ8801-10-95 04:23:00 Test Item Value Reference Range Interpretation Comments eGFR (test code = eGFR) 104 [facility] HospitalCliq SEWJT6349-78-89 04:23:00 Test Item Value Reference Range Interpretation Comments Bili Total (test code = Bili Total) 0.5 0.2-1.3 [facility]2018-08-25 04:23:00 Test Item Value Reference Range Interpretation Comments Total Protein (test code = Total 8.9 6.4-8.4 Protein) [facility]2018-08-25 04:23:00 Test Item Value Reference Range Interpretation Comments ALT (test code = ALT) 24 See_Comment [Auto mated message] The system which ge nerated this result transmit kuldip reference range : <=65. The reference range was not used to interpr et this result as abiodun l/abnormal. [facility]2018-08-25 04:23:00 Test Item Value Reference Range Interpretation Comments Albumin Lvl (test code = Albumin Lvl) 3.7 3.5-5.0 [facility]2018-08-25 04:23:00 Test Item Value Reference Range Interpretation Comments AST (test code = AST) 27 See_Comment [Auto mated message] The system which ge nerated this result transmit kuldip reference range : <=37. The reference range was not used to interpr et this result as abiodun l/abnormal. [facility]2018-08-25 04:23:00 Test Item Value Reference Range Interpretation Comments Alk Phos (test code = Alk Phos) 86 39-136 [facility]2018-08-25 04:23:00 Test Item Value Reference Range Interpretation Comments Chloride Lvl (test code = Chloride Lvl) 103 95-109 [facility]2018-08-25 04:23:00 Test Item Value Reference Range Interpretation Comments CO2 (test code = CO2) 26 24-32 [facility]2018-08-25 04:23:00 Test Item Value Reference Range Interpretation Comments Calcium Lvl (test code = Calcium Lvl) 10.8 8.5-10.5 [facility]2018-08-25 04:23:00 Test Item Value Reference Range Interpretation Comments Potassium Lvl (test code = Potassium 4.1 3.5-5.1 Lvl) [facility]2018-08-25 04:23:00 Test Item Value Reference Range Interpretation Comments Sodium Lvl (test code = Sodium Lvl) 138 135-145 [facility]2018-08-25 04:23:00 Test Item Value Reference Range Interpretation Comments Glucose Lvl (test code = Glucose Lvl) 102 70-99 [facility]2018-08-25 04:23:00 Test Item Value Reference Range Interpretation Comments BUN (test code = BUN) 6 7-22 [facility]2018-08-25 04:23:00 Test Item Value Reference Range Interpretation Comments Creatinine Lvl (test code = Creatinine 0.80 0.50-1.40 Lvl) [facility]2018-08-25 04:23:00 Test Item Value Reference Range Interpretation Comments Globulin (test code = Globulin) 5.2 2.7-4.2 [facility]2018-08-25 04:23:00 Test Item Value Reference Range Interpretation Comments AGAP (test code = AGAP) 13.1 10.0-20.0 [facility]2018-08-25 04:23:00 Test Item Value Reference Range Interpretation Comments A/G Ratio (test code = A/G Ratio) 0.7 1 0.7-1.6 [facility]2018-08-25 04:23:00 Test Item Value Reference Range Interpretation Comments B/C Ratio (test code = B/C Ratio) 8 1 6-25 [facility]2018-08-25 04:23:00 Test Item Value Reference Range Interpretation Comments Phosphorus (test code = Phosphorus) 1.9 2.5-4.5 [facility]2018-08-25 04:23:00 Test Item Value Reference Range Interpretation Comments Magnesium Lvl (test code = Magnesium 2.2 1.8-2.4 Lvl) [facility]crtbtaZAFDTQHWDBJQY7977-41-03 04:23:00 Test Item Value Reference Range Interpretation Comments S Preg (test code = S Negative *NA*(11/16/17 Preg) 11:23 PM) [facility] CenterJuvyeziGBWTULGEEZ8112-93-83 04:23:00 Test Item Value Reference Range Interpretation Comments Hct (test code = Hct) 39.7 36.0-48.0 [facility] CenterPtehnexTWPCESNVGN4638-51-04 04:23:00 Test Item Value Reference Range Interpretation Comments Hgb (test code = Hgb) 14.0 12.0-16.0 [facility] CenterNfjmfkkIQOTUKASEV5799-01-51 04:23:00 Test Item Value Reference Range Interpretation Comments WBC (test code = WBC) 7.3 3.7-10.4 [facility] CenterRviblzrVKMJRMZWQV4782-71-70 04:23:00 Test Item Value Reference Range Interpretation Comments RBC (test code = RBC) 4.56 4.20-5.40 [facility] CenterRlarvzfIBYXUTZTMW7345-95-72 04:23:00 Test Item Value Reference Range Interpretation Comments MCHC (test code = MCHC) 35.2 32.0-36.0 [facility] CenterNgwidbqYRBEHVXXOI5689-12-83 04:23:00 Test Item Value Reference Range Interpretation Comments MCV (test code = MCV) 87.1 80.0-98.0 [facility] CenterZhjugigRBHSSHSOUB7938-25-32 04:23:00 Test Item Value Reference Range Interpretation Comments MPV (test code = MPV) 8.4 7.4-10.4 [facility] CenterVpbnxghCGTYSAKFUN7107-75-03 04:23:00 Test Item Value Reference Range Interpretation Comments RDW (test code = RDW) 13.0 11.5-14.5 [facility] CenterCyixmmgQEMNCWHGZN6368-96-42 04:23:00 Test Item Value Reference Range Interpretation Comments MCH (test code = MCH) 30.7 pg 27.0-31.0 [facility] CenterPbsrhvkCWIBBIMHAV4578-72-98 04:23:00 Test Item Value Reference Range Interpretation Comments Platelet (test code = Platelet) 263 133-450 [facility] CenterCqmqomsRWSNPMKFSC0058-87-21 04:23:00 Test Item Value Reference Range Interpretation Comments D-Dimer (test code = D-Dimer) 0.27 [facility] CenterOcjcdviLYTAUELFBC2252-58-63 04:23:00 Test Item Value Reference Range Interpretation Comments Lymphocytes # (test code = Lymphocytes 2.3 1.0-5.5 #) [facility] CenterLkipalxNIPURHBSZN4263-87-19 04:23:00 Test Item Value Reference Range Interpretation Comments Segs (test code = Segs) 58.7 45.0-75.0 [facility] CenterHljkpmsLKTJKTMRWM8049-30-57 04:23:00 Test Item Value Reference Range Interpretation Comments Lymphocytes (test code = Lymphocytes) 31.5 20.0-40.0 [facility] CenterOnvvojmKMDXMYAGDS7263-18-32 04:23:00 Test Item Value Reference Range Interpretation Comments Neutrophils # (test code = Neutrophils 4.3 1.5-8.1 #) [facility] CenterIowbgfzXEALCHBDRD9725-78-64 04:23:00 Test Item Value Reference Range Interpretation Comments Basophils (test code = 0.6 See_Comment [Aut omated message] The Basophils) system which ge nerated this result tra nsmitted reference range : <=1.0. The reference r nilam was not used to int erpret this result as normal/abnormal . [facility] CenterOwlifyrKFVEULBOOZ3587-61-23 04:23:00 Test Item Value Reference Range Interpretation Comments Monocytes (test code = Monocytes) 6.7 2.0-12.0 [facility] CenterDnthexeDQQEYSCMPL7291-97-64 04:23:00 Test Item Value Reference Range Interpretation Comments Eosinophils (test code = 2.5 See_Comment [A utomated message] The Eosinophils) system which ge nerated this result tra nsmitted reference range : <=4.0. The reference r nilam was not used to int erpret this result as normal/abnormal . [facility] CenterMrwlwtsOWOVBMPMQT0069-30-64 04:23:00 Test Item Value Reference Range Interpretation Comments Eosinophils # (test code 0.2 See_Comment [A utomated message] The = Eosinophils #) system whic h generated this result tra nsmitted reference range : <=0.5. The reference r nilam was not used to int erpret this result as normal/abnormal . [facility] CenterLjvigeaAOXMJKIXAW7883-04-06 04:23:00 Test Item Value Reference Range Interpretation Comments Monocytes # (test code 0.5 See_Comment [Aut omated message] The = Monocytes #) system which generated this result tra nsmitted reference range : <=0.8. The reference r nilam was not used to int erpret this result as normal/abnormal . [facility] + LH [id number] 00:00:00 Test Item Value Reference Range Interpretation Comments FOLLICLE STIM HORMONE (test code = 37.9 IU/L 2700) LUTEINIZING HORMONE (test code = 18.7 IU/L 2776) [id number] 00:00:00 Test Item Value Reference Range Interpretation Comments ESTRADIOL (test code = 2505) 17.5 PG/ML [id number] 00:00:00 Test Item Value Reference Range Interpretation Comments ESTRADIOL (test code = 2505) 17.5 PG/ML [facility] + LH [id number] 00:00:00 Test Item Value Reference Range Interpretation Comments FOLLICLE STIM HORMONE (test code = 37.9 IU/L 2700) LUTEINIZING HORMONE (test code = 18.7 IU/L 2776) [facility] + LH [id number] 00:00:00 Test Item Value Reference Range Interpretation Comments FOLLICLE STIM HORMONE (test code = 37.9 IU/L 2700) LUTEINIZING HORMONE (test code = 18.7 IU/L 2776) [id number] 00:00:00 Test Item Value Reference Range Interpretation Comments ESTRADIOL (test code = 2505) 17.5 PG/ML [id number] 00:00:00 Test Item Value Reference Range Interpretation Comments ESTRADIOL (test code = 2505) 17.5 PG/ML [id number] 00:00:00 Test Item Value Reference Range Interpretation Comments ESTRADIOL (test code = 2505) 17.5 PG/ML [id number] 00:00:00 Test Item Value Reference Range Interpretation Comments ESTRADIOL (test code = 2505) 17.5 PG/ML [facility] + LH [id number] 00:00:00 Test Item Value Reference Range Interpretation Comments FOLLICLE STIM HORMONE (test code = 37.9 IU/L 2700) LUTEINIZING HORMONE (test code = 18.7 IU/L 2776) [facility] + LH [id number] 00:00:00 Test Item Value Reference Range Interpretation Comments FOLLICLE STIM HORMONE (test code = 37.9 IU/L 2700) LUTEINIZING HORMONE (test code = 18.7 IU/L 2776) [id number] 00:00:00 Test Item Value Reference Range Interpretation Comments ESTRADIOL (test code = 2505) 17.5 PG/ML [id number] 00:00:00 Test Item Value Reference Range Interpretation Comments ESTRADIOL (test code = 2505) 17.5 PG/ML [id number] 00:00:00 Test Item Value Reference Range Interpretation Comments ESTRADIOL (test code = 2505) 17.5 PG/ML [facility] + LH [id number] 00:00:00 Test Item Value Reference Range Interpretation Comments FOLLICLE STIM HORMONE (test code = 37.9 IU/L 2700) LUTEINIZING HORMONE (test code = 18.7 IU/L 2776) [facility] + LH [id number] 00:00:00 Test Item Value Reference Range Interpretation Comments FOLLICLE STIM HORMONE (test code = 37.9 IU/L 2700) LUTEINIZING HORMONE (test code = 18.7 IU/L 2776) [id number] 00:00:00 Test Item Value Reference Range Interpretation Comments ESTRADIOL (test code = 2505) 17.5 PG/ML [id number] 00:00:00 Test Item Value Reference Range Interpretation Comments ESTRADIOL (test code = 2505) 17.5 PG/ML [id number] 00:00:00 Test Item Value Reference Range Interpretation Comments ESTRADIOL (test code = 2505) 17.5 PG/ML DRUG [id number] 22:01:00 Test Item Value Reference Range Interpretation Comments UDS Note (test code = See Note *NA*(10/31/17 UDS Note) 5:01 PM) [facility] [id number] 22:01:00 Test Item Value Reference Range Interpretation Comments U Phencyclidine Scr (test Negative *NA*(10/31/17 code = U Phencyclidine 5:01 PM) Scr) [facility] [id number] 22:01:00 Test Item Value Reference Range Interpretation Comments U Opiate Scr (test Negative *NA*(10/31/17 code = U Opiate Scr) 5:01 PM) [facility] [id number] 22:01:00 Test Item Value Reference Range Interpretation Comments U Cannab Scr (test Negative *NA*(10/31/17 code = U Cannab Scr) 5:01 PM) [facility] [id number] 22:01:00 Test Item Value Reference Range Interpretation Comments U Indu Scr (test code Negative *NA*(10/31/17 = U Indu Scr) 5:01 PM) [facility] [id number] 22:01:00 Test Item Value Reference Range Interpretation Comments U Amph Scr (test code Negative *NA*(10/31/17 = U Amph Scr) 5:01 PM) [facility] [id number] 22:01:00 Test Item Value Reference Range Interpretation Comments U Cocaine Scr (test Negative *NA*(10/31/17 code = U Cocaine Scr) 5:01 PM) [facility] [id number] 22:01:00 Test Item Value Reference Range Interpretation Comments U Benzodiaz Scr (test Negative *NA*(10/31/17 code = U Benzodiaz Scr) 5:01 PM) [facility] [id number] 22:01:00 Test Item Value Reference Range Interpretation Comments UA CaOx Judy (test code = UA Moderate /HPF CaOx Judy) [facility] [id number] 22:01:00 Test Item Value Reference Range Interpretation Comments UA Bacteria (test code = UA Moderate /HPF Bacteria) [facility] [id number] 22:01:00 Test Item Value Reference Range Interpretation Comments UA Mucus (test code = UA Mucus) Few /LPF [facility] [id number] 22:01:00 Test Item Value Reference Range Interpretation Comments UA WBC (test code = 7 See_Comment [Automa kuldip message] The UA WBC) system which ge nerated this result transmit kuldip reference range : <=5. The reference range was not used to interpr et this result as abiodun l/abnormal. [facility] [id number] 22:01:00 Test Item Value Reference Range Interpretation Comments UA RBC (test code = 3 See_Comment [Automa kuldip message] The UA RBC) system which ge nerated this result transmit kuldip reference range : <=2. The reference range was not used to interpr et this result as abiodun l/abnormal. [facility] [id number] 22:01:00 Test Item Value Reference Range Interpretation Comments UA Sq Epi (test code = UA Sq Epi) Few /LPF [facility] [id number] 22:01:00 Test Item Value Reference Range Interpretation Comments UA Leuk Est (test Negative (10/31/17 5:01 code = UA Leuk Est) PM) [facility] [id number] 22:01:00 Test Item Value Reference Range Interpretation Comments UA Urobilinogen (test code = UA 4.0 0.1-1.0 Urobilinogen) [facility] [id number] 22:01:00 Test Item Value Reference Range Interpretation Comments UA Nitrite (test code Negative (8/8/18 5:01 = UA Nitrite) PM) [facility] [id number] 22:01:00 Test Item Value Reference Range Interpretation Comments UA Ketones (test code = UA Ketones) 20 mg/dL [facility] [id number] 22:01:00 Test Item Value Reference Range Interpretation Comments UA Glucose (test code = UA Negative mg/dL Glucose) [facility] [id number] 22:01:00 Test Item Value Reference Range Interpretation Comments UA Turbidity (test code Slight *ABN*(10/31/17 = UA Turbidity) 5:01 PM) [facility] [id number] 22:01:00 Test Item Value Reference Range Interpretation Comments UA Color (test code = Yellow *NA*(10/31/17 5:01 UA Color) PM) [facility] [id number] 22:01:00 Test Item Value Reference Range Interpretation Comments UA Blood (test code = Negative (10/31/17 5:01 UA Blood) PM) [facility] [id number] 22:01:00 Test Item Value Reference Range Interpretation Comments UA Bili (test code = Negative *NA*(10/31/17 UA Bili) 5:01 PM) [facility] [id number] 22:01:00 Test Item Value Reference Range Interpretation Comments UA Protein (test code = UA Negative mg/dL Protein) [facility] [id number] 22:01:00 Test Item Value Reference Range Interpretation Comments UA pH (test code = UA pH) 6.0 1 5.0-8.0 [facility] [id number] 22:01:00 Test Item Value Reference Range Interpretation Comments UA Spec Grav (test code = UA Spec 1.014 1 Grav) [facility] [id number] 22:01:00 Test Item Value Reference Range Interpretation Comments Culture: Urine (test 50,000 - 100,000 code = Culture: Urine) CFU/mL [facility] [id number] 22:01:00 Test Item Value Reference Range Interpretation Comments UDS Note (test code = See Note *NA*(10/31/17 UDS Note) 5:01 PM) [facility] [id number] 22:01:00 Test Item Value Reference Range Interpretation Comments U Phencyclidine Scr (test Negative *NA*(10/31/17 code = U Phencyclidine 5:01 PM) Scr) [facility] [id number] 22:01:00 Test Item Value Reference Range Interpretation Comments U Opiate Scr (test Negative *NA*(10/31/17 code = U Opiate Scr) 5:01 PM) [facility] [id number] 22:01:00 Test Item Value Reference Range Interpretation Comments U Cannab Scr (test Negative *NA*(10/31/17 code = U Cannab Scr) 5:01 PM) [facility] [id number] 22:01:00 Test Item Value Reference Range Interpretation Comments U Indu Scr (test code Negative *NA*(10/31/17 = U Indu Scr) 5:01 PM) [facility] [id number] 22:01:00 Test Item Value Reference Range Interpretation Comments U Amph Scr (test code Negative *NA*(10/31/17 = U Amph Scr) 5:01 PM) [facility] [id number] 22:01:00 Test Item Value Reference Range Interpretation Comments U Cocaine Scr (test Negative *NA*(10/31/17 code = U Cocaine Scr) 5:01 PM) [facility] [id number] 22:01:00 Test Item Value Reference Range Interpretation Comments U Benzodiaz Scr (test Negative *NA*(10/31/17 code = U Benzodiaz Scr) 5:01 PM) [facility] [id number] 22:01:00 Test Item Value Reference Range Interpretation Comments UA CaOx Judy (test code = UA Moderate /HPF CaOx Judy) [facility] [id number] 22:01:00 Test Item Value Reference Range Interpretation Comments UA Bacteria (test code = UA Moderate /HPF Bacteria) [facility] [id number] 22:01:00 Test Item Value Reference Range Interpretation Comments UA Mucus (test code = UA Mucus) Few /LPF [facility] [id number] 22:01:00 Test Item Value Reference Range Interpretation Comments UA WBC (test code = 7 See_Comment [Automa kuldip message] The UA WBC) system which ge nerated this result transmit kuldip reference range : <=5. The reference range was not used to interpr et this result as abiodun l/abnormal. [facility] AND [id number] 22:01:00 Test Item Value Reference Range Interpretation Comments UA RBC (test code = 3 See_Comment [Automa kuldip message] The UA RBC) system which ge nerated this result transmit kuldip reference range : <=2. The reference range was not used to interpr et this result as abiodun l/abnormal. [facility] AND [id number] 22:01:00 Test Item Value Reference Range Interpretation Comments UA Sq Epi (test code = UA Sq Epi) Few /LPF [facility] AND [id number] 22:01:00 Test Item Value Reference Range Interpretation Comments UA Leuk Est (test Negative (10/31/17 5:01 code = UA Leuk Est) PM) [facility] AND [id number] 22:01:00 Test Item Value Reference Range Interpretation Comments UA Urobilinogen (test code = UA 4.0 0.1-1.0 Urobilinogen) [facility] AND [id number] 22:01:00 Test Item Value Reference Range Interpretation Comments UA Nitrite (test code Negative (10/31/17 5:01 = UA Nitrite) PM) [facility] AND [id number] 22:01:00 Test Item Value Reference Range Interpretation Comments UA Ketones (test code = UA Ketones) 20 mg/dL [facility] AND [id number] 22:01:00 Test Item Value Reference Range Interpretation Comments UA Glucose (test code = UA Negative mg/dL Glucose) [facility] AND [id number] 22:01:00 Test Item Value Reference Range Interpretation Comments UA Turbidity (test code Slight *ABN*(10/31/17 = UA Turbidity) 5:01 PM) [facility] AND [id number] 22:01:00 Test Item Value Reference Range Interpretation Comments UA Color (test code = Yellow *NA*(10/31/17 5:01 UA Color) PM) [facility] AND [id number] 22:01:00 Test Item Value Reference Range Interpretation Comments UA Blood (test code = Negative (10/31/17 5:01 UA Blood) PM) [facility] [id number] 22:01:00 Test Item Value Reference Range Interpretation Comments UA Bili (test code = Negative *NA*(10/31/17 UA Bili) 5:01 PM) [facility] [id number] 22:01:00 Test Item Value Reference Range Interpretation Comments UA Protein (test code = UA Negative mg/dL Protein) [facility] [id number] 22:01:00 Test Item Value Reference Range Interpretation Comments UA pH (test code = UA pH) 6.0 1 5.0-8.0 [facility] [id number] 22:01:00 Test Item Value Reference Range Interpretation Comments UA Spec Grav (test code = UA Spec 1.014 1 Grav) [facility] [id number] 22:01:00 Test Item Value Reference Range Interpretation Comments Culture: Urine (test 50,000 - 100,000 code = Culture: Urine) CFU/mL [facility] [id number] 22:01:00 Test Item Value Reference Range Interpretation Comments UDS Note (test code = See Note *NA*(10/31/17 UDS Note) 5:01 PM) [facility] [id number] 22:01:00 Test Item Value Reference Range Interpretation Comments U Phencyclidine Scr (test Negative *NA*(10/31/17 code = U Phencyclidine 5:01 PM) Scr) [facility] [id number] 22:01:00 Test Item Value Reference Range Interpretation Comments U Opiate Scr (test Negative *NA*(10/31/17 code = U Opiate Scr) 5:01 PM) [facility] [id number] 22:01:00 Test Item Value Reference Range Interpretation Comments U Cannab Scr (test Negative *NA*(10/31/17 code = U Cannab Scr) 5:01 PM) [facility] [id number] 22:01:00 Test Item Value Reference Range Interpretation Comments U Indu Scr (test code Negative *NA*(10/31/17 = U Indu Scr) 5:01 PM) [facility] [id number] 22:01:00 Test Item Value Reference Range Interpretation Comments U Amph Scr (test code Negative *NA*(10/31/17 = U Amph Scr) 5:01 PM) [facility] [id number] 22:01:00 Test Item Value Reference Range Interpretation Comments U Cocaine Scr (test Negative *NA*(10/31/17 code = U Cocaine Scr) 5:01 PM) [facility] [id number] 22:01:00 Test Item Value Reference Range Interpretation Comments U Benzodiaz Scr (test Negative *NA*(10/31/17 code = U Benzodiaz Scr) 5:01 PM) [facility] [id number] 22:01:00 Test Item Value Reference Range Interpretation Comments UA CaOx Judy (test code = UA Moderate /HPF CaOx Judy) [facility] [id number] 22:01:00 Test Item Value Reference Range Interpretation Comments UA Bacteria (test code = UA Moderate /HPF Bacteria) [facility] [id number] 22:01:00 Test Item Value Reference Range Interpretation Comments UA Mucus (test code = UA Mucus) Few /LPF [facility] [id number] 22:01:00 Test Item Value Reference Range Interpretation Comments UA WBC (test code = 7 See_Comment [Automa kuldip message] The UA WBC) system which ge nerated this result transmit kuldip reference range : <=5. The reference range was not used to interpr et this result as abiodun l/abnormal. [facility] [id number] 22:01:00 Test Item Value Reference Range Interpretation Comments UA RBC (test code = 3 See_Comment [Automa kuldip message] The UA RBC) system which ge nerated this result transmit kuldip reference range : <=2. The reference range was not used to interpr et this result as abiodun l/abnormal. [facility] [id number] 22:01:00 Test Item Value Reference Range Interpretation Comments UA Sq Epi (test code = UA Sq Epi) Few /LPF [facility] [id number] 22:01:00 Test Item Value Reference Range Interpretation Comments UA Leuk Est (test Negative (10/31/17 5:01 code = UA Leuk Est) PM) [facility] [id number] 22:01:00 Test Item Value Reference Range Interpretation Comments UA Urobilinogen (test code = UA 4.0 0.1-1.0 Urobilinogen) [facility] AND [id number] 22:01:00 Test Item Value Reference Range Interpretation Comments UA Nitrite (test code Negative (10/31/17 5:01 = UA Nitrite) PM) [facility] AND [id number] 22:01:00 Test Item Value Reference Range Interpretation Comments UA Ketones (test code = UA Ketones) 20 mg/dL [facility] AND [id number] 22:01:00 Test Item Value Reference Range Interpretation Comments UA Glucose (test code = UA Negative mg/dL Glucose) [facility] AND [id number] 22:01:00 Test Item Value Reference Range Interpretation Comments UA Turbidity (test code Slight *ABN*(10/31/17 = UA Turbidity) 5:01 PM) [facility] AND [id number] 22:01:00 Test Item Value Reference Range Interpretation Comments UA Color (test code = Yellow *NA*(10/31/17 5:01 UA Color) PM) [facility] AND [id number] 22:01:00 Test Item Value Reference Range Interpretation Comments UA Blood (test code = Negative (10/31/17 5:01 UA Blood) PM) [facility] AND [id number] 22:01:00 Test Item Value Reference Range Interpretation Comments UA Bili (test code = Negative *NA*(10/31/17 UA Bili) 5:01 PM) [facility] AND [id number] 22:01:00 Test Item Value Reference Range Interpretation Comments UA Protein (test code = UA Negative mg/dL Protein) [facility] AND [id number] 22:01:00 Test Item Value Reference Range Interpretation Comments UA pH (test code = UA pH) 6.0 1 5.0-8.0 [facility] AND [id number] 22:01:00 Test Item Value Reference Range Interpretation Comments UA Spec Grav (test code = UA Spec 1.014 1 Grav) [facility] [id number] 22:01:00 Test Item Value Reference Range Interpretation Comments Culture: Urine (test 50,000 - 100,000 code = Culture: Urine) CFU/mL Skin [facility] [id number] 22:01:00 Test Item Value Reference Range Interpretation Comments UDS Note (test code = See Note *NA*(10/31/17 UDS Note) 5:01 PM) [facility] [id number] 22:01:00 Test Item Value Reference Range Interpretation Comments U Phencyclidine Scr (test Negative *NA*(10/31/17 code = U Phencyclidine 5:01 PM) Scr) [facility] [id number] 22:01:00 Test Item Value Reference Range Interpretation Comments U Opiate Scr (test Negative *NA*(10/31/17 code = U Opiate Scr) 5:01 PM) [facility] [id number] 22:01:00 Test Item Value Reference Range Interpretation Comments U Cannab Scr (test Negative *NA*(10/31/17 code = U Cannab Scr) 5:01 PM) [facility] [id number] 22:01:00 Test Item Value Reference Range Interpretation Comments U Indu Scr (test code Negative *NA*(10/31/17 = U Indu Scr) 5:01 PM) [facility] [id number] 22:01:00 Test Item Value Reference Range Interpretation Comments U Amph Scr (test code Negative *NA*(10/31/17 = U Amph Scr) 5:01 PM) [facility] [id number] 22:01:00 Test Item Value Reference Range Interpretation Comments U Cocaine Scr (test Negative *NA*(10/31/17 code = U Cocaine Scr) 5:01 PM) [facility] [id number] 22:01:00 Test Item Value Reference Range Interpretation Comments U Benzodiaz Scr (test Negative *NA*(10/31/17 code = U Benzodiaz Scr) 5:01 PM) [facility] [id number] 22:01:00 Test Item Value Reference Range Interpretation Comments UA CaOx Judy (test code = UA Moderate /HPF CaOx Judy) [facility] [id number] 22:01:00 Test Item Value Reference Range Interpretation Comments UA Bacteria (test code = UA Moderate /HPF Bacteria) [facility] [id number] 22:01:00 Test Item Value Reference Range Interpretation Comments UA Mucus (test code = UA Mucus) Few /LPF [facility] AND [id number] 22:01:00 Test Item Value Reference Range Interpretation Comments UA WBC (test code = 7 See_Comment [Automa kuldip message] The UA WBC) system which ge nerated this result transmit kuldip reference range : <=5. The reference range was not used to interpr et this result as abiodun l/abnormal. [facility] AND [id number] 22:01:00 Test Item Value Reference Range Interpretation Comments UA RBC (test code = 3 See_Comment [Automa kuldip message] The UA RBC) system which ge nerated this result transmit kuldip reference range : <=2. The reference range was not used to interpr et this result as abiodun l/abnormal. [facility] AND [id number] 22:01:00 Test Item Value Reference Range Interpretation Comments UA Sq Epi (test code = UA Sq Epi) Few /LPF [facility] AND [id number] 22:01:00 Test Item Value Reference Range Interpretation Comments UA Leuk Est (test Negative (10/31/17 5:01 code = UA Leuk Est) PM) [facility] AND [id number] 22:01:00 Test Item Value Reference Range Interpretation Comments UA Urobilinogen (test code = UA 4.0 0.1-1.0 Urobilinogen) [facility] AND [id number] 22:01:00 Test Item Value Reference Range Interpretation Comments UA Nitrite (test code Negative (10/31/17 5:01 = UA Nitrite) PM) [facility] AND [id number] 22:01:00 Test Item Value Reference Range Interpretation Comments UA Ketones (test code = UA Ketones) 20 mg/dL [facility] AND [id number] 22:01:00 Test Item Value Reference Range Interpretation Comments UA Glucose (test code = UA Negative mg/dL Glucose) [facility] AND [id number] 22:01:00 Test Item Value Reference Range Interpretation Comments UA Turbidity (test code Slight *ABN*(10/31/17 = UA Turbidity) 5:01 PM) [facility] [id number] 22:01:00 Test Item Value Reference Range Interpretation Comments UA Color (test code = Yellow *NA*(10/31/17 5:01 UA Color) PM) [facility] [id number] 22:01:00 Test Item Value Reference Range Interpretation Comments UA Blood (test code = Negative (10/31/17 5:01 UA Blood) PM) [facility] [id number] 22:01:00 Test Item Value Reference Range Interpretation Comments UA Bili (test code = Negative *NA*(10/31/17 UA Bili) 5:01 PM) [facility] [id number] 22:01:00 Test Item Value Reference Range Interpretation Comments UA Protein (test code = UA Negative mg/dL Protein) [facility] [id number] 22:01:00 Test Item Value Reference Range Interpretation Comments UA pH (test code = UA pH) 6.0 1 5.0-8.0 [facility] [id number] 22:01:00 Test Item Value Reference Range Interpretation Comments UA Spec Grav (test code = UA Spec 1.014 1 Grav) [facility] [id number] 22:01:00 Test Item Value Reference Range Interpretation Comments Culture: Urine (test 50,000 - 100,000 code = Culture: Urine) CFU/mL [facility] [id number] 22:01:00 Test Item Value Reference Range Interpretation Comments UDS Note (test code = See Note *NA*(10/31/17 UDS Note) 5:01 PM) [facility] [id number] 22:01:00 Test Item Value Reference Range Interpretation Comments U Phencyclidine Scr (test Negative *NA*(10/31/17 code = U Phencyclidine 5:01 PM) Scr) [facility] [id number] 22:01:00 Test Item Value Reference Range Interpretation Comments U Opiate Scr (test Negative *NA*(10/31/17 code = U Opiate Scr) 5:01 PM) [facility] [id number] 22:01:00 Test Item Value Reference Range Interpretation Comments U Cannab Scr (test Negative *NA*(10/31/17 code = U Cannab Scr) 5:01 PM) [facility] [id number] 22:01:00 Test Item Value Reference Range Interpretation Comments U Indu Scr (test code Negative *NA*(10/31/17 = U Indu Scr) 5:01 PM) [facility] [id number] 22:01:00 Test Item Value Reference Range Interpretation Comments U Amph Scr (test code Negative *NA*(10/31/17 = U Amph Scr) 5:01 PM) [facility] [id number] 22:01:00 Test Item Value Reference Range Interpretation Comments U Cocaine Scr (test Negative *NA*(10/31/17 code = U Cocaine Scr) 5:01 PM) [facility] [id number] 22:01:00 Test Item Value Reference Range Interpretation Comments U Benzodiaz Scr (test Negative *NA*(10/31/17 code = U Benzodiaz Scr) 5:01 PM) [facility] [id number] 22:01:00 Test Item Value Reference Range Interpretation Comments UA CaOx Judy (test code = UA Moderate /HPF CaOx Judy) [facility] [id number] 22:01:00 Test Item Value Reference Range Interpretation Comments UA Bacteria (test code = UA Moderate /HPF Bacteria) [facility] [id number] 22:01:00 Test Item Value Reference Range Interpretation Comments UA Mucus (test code = UA Mucus) Few /LPF [facility] [id number] 22:01:00 Test Item Value Reference Range Interpretation Comments UA WBC (test code = 7 See_Comment [Automa kuldip message] The UA WBC) system which ge nerated this result transmit kuldip reference range : <=5. The reference range was not used to interpr et this result as abiodun l/abnormal. [facility] [id number] 22:01:00 Test Item Value Reference Range Interpretation Comments UA RBC (test code = 3 See_Comment [Automa kuldip message] The UA RBC) system which ge nerated this result transmit kuldip reference range : <=2. The reference range was not used to interpr et this result as abiodun l/abnormal. [facility] [id number] 22:01:00 Test Item Value Reference Range Interpretation Comments UA Sq Epi (test code = UA Sq Epi) Few /LPF [facility] AND [id number] 22:01:00 Test Item Value Reference Range Interpretation Comments UA Leuk Est (test Negative (10/31/17 5:01 code = UA Leuk Est) PM) [facility] AND [id number] 22:01:00 Test Item Value Reference Range Interpretation Comments UA Urobilinogen (test code = UA 4.0 0.1-1.0 Urobilinogen) [facility] AND [id number] 22:01:00 Test Item Value Reference Range Interpretation Comments UA Nitrite (test code Negative (10/31/17 5:01 = UA Nitrite) PM) [facility] AND [id number] 22:01:00 Test Item Value Reference Range Interpretation Comments UA Ketones (test code = UA Ketones) 20 mg/dL [facility] AND [id number] 22:01:00 Test Item Value Reference Range Interpretation Comments UA Glucose (test code = UA Negative mg/dL Glucose) [facility] AND [id number] 22:01:00 Test Item Value Reference Range Interpretation Comments UA Turbidity (test code Slight *ABN*(10/31/17 = UA Turbidity) 5:01 PM) [facility] AND [id number] 22:01:00 Test Item Value Reference Range Interpretation Comments UA Color (test code = Yellow *NA*(10/31/17 5:01 UA Color) PM) [facility] AND [id number] 22:01:00 Test Item Value Reference Range Interpretation Comments UA Blood (test code = Negative (10/31/17 5:01 UA Blood) PM) [facility] AND [id number] 22:01:00 Test Item Value Reference Range Interpretation Comments UA Bili (test code = Negative *NA*(10/31/17 UA Bili) 5:01 PM) [facility] AND [id number] 22:01:00 Test Item Value Reference Range Interpretation Comments UA Protein (test code = UA Negative mg/dL Protein) [facility] AND [id number] 22:01:00 Test Item Value Reference Range Interpretation Comments UA pH (test code = UA pH) 6.0 1 5.0-8.0 [facility] [id number] 22:01:00 Test Item Value Reference Range Interpretation Comments UA Spec Grav (test code = UA Spec 1.014 1 Grav) [facility] [id number] 22:01:00 Test Item Value Reference Range Interpretation Comments Culture: Urine (test 50,000 - 100,000 code = Culture: Urine) CFU/mL Skin And[facility]ARD[facility]AC [id number] 20:27:00 Test Item Value Reference Range Interpretation Comments Total CK (test code = Total CK) 110 12-191 [facility] [id number] 20:27:00 Test Item Value Reference Range Interpretation Comments Troponin-I (test code no gt See_Comment [Auto mated message] The = Troponin-I) system which g enerated this result transmit kuldip reference range : <=0.40. The reference r nilam was not used to interpr et this result as abiodun l/abnormal. [facility] HospitalMmqtbseVPLXACUPHNLL8216-98-75 20:27:00 Test Item Value Reference Range Interpretation Comments AGAP (test code = AGAP) 12.4 10.0-20.0 [facility] Hospital[id number] 20:27:00 Test Item Value Reference Range Interpretation Comments eGFR (test code = eGFR) 84 [facility] HospitalImxiawuVVPNBLWGGEWJ6784-15-27 20:27:00 Test Item Value Reference Range Interpretation Comments Calcium Lvl (test code = Calcium Lvl) 10.3 8.5-10.5 [facility] HospitalPwoqhyvPAHMBUZPBECV4306-91-30 20:27:00 Test Item Value Reference Range Interpretation Comments Creatinine Lvl (test code = Creatinine 0.96 0.50-1.40 Lvl) [facility] HospitalDsrslboACDPHUYROEZO3063-38-75 20:27:00 Test Item Value Reference Range Interpretation Comments Potassium Lvl (test code = Potassium 3.4 3.5-5.1 Lvl) [facility] HospitalMncczveABFSIWYDKTNX4888-28-65 20:27:00 Test Item Value Reference Range Interpretation Comments BUN (test code = BUN) 9 7-22 [facility] HospitalZfineemTDQRIEKNSBCN4202-78-50 20:27:00 Test Item Value Reference Range Interpretation Comments Glucose Lvl (test code = Glucose Lvl) 96 70-99 [facility] HospitalHiluxxzRIZBBNJMWXEL3876-52-03 20:27:00 Test Item Value Reference Range Interpretation Comments Sodium Lvl (test code = Sodium Lvl) 139 135-145 [facility] HospitalJcbshxgTDHGMUZJHDLW4662-73-36 20:27:00 Test Item Value Reference Range Interpretation Comments Chloride Lvl (test code = Chloride Lvl) 102 95-109 [facility] HospitalIjoeqveZNJWYFMPWPDF2477-82-84 20:27:00 Test Item Value Reference Range Interpretation Comments CO2 (test code = CO2) 28 24-32 [place] [id number] 20:27:00 Test Item Value Reference Range Interpretation Comments S Preg (test code = S Negative *NA*(10/31/17 Preg) 3:27 PM) [facility]MxefhyuMELQQWULBV9366-32-02 20:27:00 Test Item Value Reference Range Interpretation Comments Lymphocytes (test code = Lymphocytes) 18.7 20.0-40.0 [facility] CenterDjwclshXLKGFFDWPI6245-21-18 20:27:00 Test Item Value Reference Range Interpretation Comments Monocytes (test code = Monocytes) 9.1 2.0-12.0 [facility] CenterYqkltwqNNNPJXPYZL2681-57-78 20:27:00 Test Item Value Reference Range Interpretation Comments Neutrophils # (test code = Neutrophils 6.6 1.5-8.1 #) [facility] CenterAsnydreHGKNUJIMMH0803-55-21 20:27:00 Test Item Value Reference Range Interpretation Comments Lymphocytes # (test code = Lymphocytes 1.8 1.0-5.5 #) [facility] CenterKyulhywVYMBIPQBZZ5467-23-98 20:27:00 Test Item Value Reference Range Interpretation Comments Segs (test code = Segs) 70.6 45.0-75.0 [facility] CenterEeivietAMPDXGZRZC2310-80-28 20:27:00 Test Item Value Reference Range Interpretation Comments Eosinophils (test code = 1.3 See_Comment [A utomated message] The Eosinophils) system which ge nerated this result tra nsmitted reference range : <=4.0. The reference r nilam was not used to int erpret this result as normal/abnormal . [facility] CenterHhwaitaRGEJZUQCEN3663-24-60 20:27:00 Test Item Value Reference Range Interpretation Comments Basophils (test code = 0.3 See_Comment [Aut omated message] The Basophils) system which ge nerated this result tra nsmitted reference range : <=1.0. The reference r nilam was not used to int erpret this result as normal/abnormal . [facility] CenterXboshbdHAIAZXKBAV9944-02-21 20:27:00 Test Item Value Reference Range Interpretation Comments Monocytes # (test code 0.9 See_Comment [Aut omated message] The = Monocytes #) system which generated this result tra nsmitted reference range : <=0.8. The reference r nilam was not used to int erpret this result as normal/abnormal . [facility] CenterTpsukxsCPAFFGDPMC1640-84-81 20:27:00 Test Item Value Reference Range Interpretation Comments Eosinophils # (test code 0.1 See_Comment [A utomated message] The = Eosinophils #) system whic h generated this result tra nsmitted reference range : <=0.5. The reference r nilam was not used to int erpret this result as normal/abnormal . [facility] CenterSufxgcdLTYBWEGNCJ1482-34-56 20:27:00 Test Item Value Reference Range Interpretation Comments PT (test code = PT) 15.7 s 12.0-14.7 [facility] CenterEczbunoKNNXBCLFEW1409-28-30 20:27:00 Test Item Value Reference Range Interpretation Comments INR (test code = INR) 1.24 1 0.85-1.17 [facility] CenterWezvwaiTGSBLJSNBP4417-29-88 20:27:00 Test Item Value Reference Range Interpretation Comments PTT (test code = PTT) 31.0 s 22.9-35.8 [facility] CenterKkyjvqvWWBIGQWVNX0256-14-51 20:27:00 Test Item Value Reference Range Interpretation Comments Hgb (test code = Hgb) 13.5 12.0-16.0 [facility] CenterDtkwuhvOMJZQQECIP6355-02-06 20:27:00 Test Item Value Reference Range Interpretation Comments RBC (test code = RBC) 4.35 4.20-5.40 [facility] CenterVozmicdIFDPRKFMRC2992-90-26 20:27:00 Test Item Value Reference Range Interpretation Comments RDW (test code = RDW) 13.4 11.5-14.5 [facility] CenterSueawyzSCFUBJWZTB3536-65-43 20:27:00 Test Item Value Reference Range Interpretation Comments WBC (test code = WBC) 9.4 3.7-10.4 [facility] CenterBgxgynwFMJURJBJNC5080-60-05 20:27:00 Test Item Value Reference Range Interpretation Comments MCHC (test code = MCHC) 34.7 32.0-36.0 [facility] HospitalOjuhfhoKCSFPRRMEJ7072-58-14 20:27:00 Test Item Value Reference Range Interpretation Comments MCH (test code = MCH) 31.0 pg 27.0-31.0 [facility] PointeWiycletMFOLMJNVZW4557-14-17 20:27:00 Test Item Value Reference Range Interpretation Comments Hct (test code = Hct) 38.8 36.0-48.0 [facility] PointeHbezxroFKMGMPEJWK7876-52-70 20:27:00 Test Item Value Reference Range Interpretation Comments MCV (test code = MCV) 89.4 80.0-98.0 [facility]XktgpkjUIWOZYPFSA0669-66-86 20:27:00 Test Item Value Reference Range Interpretation Comments MPV (test code = MPV) 8.2 7.4-10.4 [facility] HospitalGkxhxakFVZEIKLVWU3179-47-32 20:27:00 Test Item Value Reference Range Interpretation Comments Platelet (test code = Platelet) 238 133-450 [facility] PointeZozmbghGJYRBWOKMZ9609-27-26 20:27:00 Test Item Value Reference Range Interpretation Comments Ethanol Lvl (test code = Ethanol Lvl) no gt [facility] HospitalHsvslthHCGMKOETWT5344-88-65 20:27:00 Test Item Value Reference Range Interpretation Comments Etoh (%) (test code = Etoh (%)) no gt [facility] HospitalannCARDIAC DJQIGVD1885-89-52 20:27:00 Test Item Value Reference Range Interpretation Comments Total CK (test code = Total CK) 110 12-191 [facility]inteCARDIAC GCWHLTO3215-38-77 20:27:00 Test Item Value Reference Range Interpretation Comments Troponin-I (test code no gt See_Comment [Auto mated message] The = Troponin-I) system which g enerated this result transmit kuldip reference range : <=0.40. The reference r nilam was not used to interpr et this result as abiodun l/abnormal. [facility] HospitalNoujqpsLKPBLVYWFOQX5158-66-53 20:27:00 Test Item Value Reference Range Interpretation Comments AGAP (test code = AGAP) 12.4 10.0-20.0 [facility]QxzlnlxYOOCPYGZONOF7473-99-29 20:27:00 Test Item Value Reference Range Interpretation Comments eGFR (test code = eGFR) 84 [facility] HospitalZihzsvwQKATTYUJDJGT2599-92-42 20:27:00 Test Item Value Reference Range Interpretation Comments Calcium Lvl (test code = Calcium Lvl) 10.3 8.5-10.5 [facility] HospitalAqccnnsHGIFQEJWWMIS0917-01-37 20:27:00 Test Item Value Reference Range Interpretation Comments Creatinine Lvl (test code = Creatinine 0.96 0.50-1.40 Lvl) [facility] HospitalFpnaoofVGYAWFCUHXJW3631-92-17 20:27:00 Test Item Value Reference Range Interpretation Comments Potassium Lvl (test code = Potassium 3.4 3.5-5.1 Lvl) [facility] HospitalOefneecCEOQFNDBMVEX9703-16-36 20:27:00 Test Item Value Reference Range Interpretation Comments BUN (test code = BUN) 9 7-22 [facility] HospitalEpkljxkYIQERPIYGNOI8161-26-10 20:27:00 Test Item Value Reference Range Interpretation Comments Glucose Lvl (test code = Glucose Lvl) 96 70-99 [facility] HospitalChpmszfFKWDGAXGYINE8436-87-75 20:27:00 Test Item Value Reference Range Interpretation Comments Sodium Lvl (test code = Sodium Lvl) 139 135-145 [facility] HospitalBimyvfzXSADNVQFZODO3838-15-59 20:27:00 Test Item Value Reference Range Interpretation Comments Chloride Lvl (test code = Chloride Lvl) 102 95-109 [facility] HospitalOlyiooiBHHWCTFJHDUW1909-36-10 20:27:00 Test Item Value Reference Range Interpretation Comments CO2 (test code = CO2) 28 24-32 [facility]lakeAmezukfDZZSIKZKCDEEF0671-62-70 20:27:00 Test Item Value Reference Range Interpretation Comments S Preg (test code = S Negative *NA*(10/31/17 Preg) 3:27 PM) [facility] CenterSkrlhsnTLSYQHGEXP1292-21-21 20:27:00 Test Item Value Reference Range Interpretation Comments Lymphocytes (test code = Lymphocytes) 18.7 20.0-40.0 [facility] CenterKmuvyscCBNLXSMUHA4506-67-78 20:27:00 Test Item Value Reference Range Interpretation Comments Monocytes (test code = Monocytes) 9.1 2.0-12.0 [facility] CenterJihpyppXYTFYJJKRU2214-43-55 20:27:00 Test Item Value Reference Range Interpretation Comments Neutrophils # (test code = Neutrophils 6.6 1.5-8.1 #) [facility] CenterCktczhsURXZLVPHIU6792-30-98 20:27:00 Test Item Value Reference Range Interpretation Comments Lymphocytes # (test code = Lymphocytes 1.8 1.0-5.5 #) [facility] CenterBonkbyeMWKZROFFIU4688-46-06 20:27:00 Test Item Value Reference Range Interpretation Comments Segs (test code = Segs) 70.6 45.0-75.0 [facility] CenterMaahplbLCNJSYAXFR8279-26-11 20:27:00 Test Item Value Reference Range Interpretation Comments Eosinophils (test code = 1.3 See_Comment [A utomated message] The Eosinophils) system which ge nerated this result tra nsmitted reference range : <=4.0. The reference r nilam was not used to int erpret this result as normal/abnormal . [facility] CenterTalojmjEIEHKCDLRH3312-39-01 20:27:00 Test Item Value Reference Range Interpretation Comments Basophils (test code = 0.3 See_Comment [Aut omated message] The Basophils) system which ge nerated this result tra nsmitted reference range : <=1.0. The reference r nilam was not used to int erpret this result as normal/abnormal . [facility] CenterXnmvdxjBVVZQTQAPL0289-69-01 20:27:00 Test Item Value Reference Range Interpretation Comments Monocytes # (test code 0.9 See_Comment [Aut omated message] The = Monocytes #) system which generated this result tra nsmitted reference range : <=0.8. The reference r nilam was not used to int erpret this result as normal/abnormal . [facility] CenterGcpqjggXDFJQBYHXL6430-31-79 20:27:00 Test Item Value Reference Range Interpretation Comments Eosinophils # (test code 0.1 See_Comment [A utomated message] The = Eosinophils #) system whic h generated this result tra nsmitted reference range : <=0.5. The reference r nilam was not used to int erpret this result as normal/abnormal . [facility] CenterXqpnzakYWWARUTMIT9868-55-16 20:27:00 Test Item Value Reference Range Interpretation Comments PT (test code = PT) 15.7 s 12.0-14.7 [facility] CenterHwfxsbbKJLGCOQKKL3121-94-57 20:27:00 Test Item Value Reference Range Interpretation Comments INR (test code = INR) 1.24 1 0.85-1.17 [facility] CenterMnaahelFTTZXYMTXS9045-56-83 20:27:00 Test Item Value Reference Range Interpretation Comments PTT (test code = PTT) 31.0 s 22.9-35.8 [facility] CenterHxeexazYTNDKNMOFF6861-01-91 20:27:00 Test Item Value Reference Range Interpretation Comments Hgb (test code = Hgb) 13.5 12.0-16.0 [facility] CenterKvxuuglAXIUFLXNNV7269-66-20 20:27:00 Test Item Value Reference Range Interpretation Comments RBC (test code = RBC) 4.35 4.20-5.40 [facility] CenterKfpylubWYCFXRASNB2921-62-74 20:27:00 Test Item Value Reference Range Interpretation Comments RDW (test code = RDW) 13.4 11.5-14.5 [facility] CenterSdrzziuMTSHFEFPCU7218-53-61 20:27:00 Test Item Value Reference Range Interpretation Comments WBC (test code = WBC) 9.4 3.7-10.4 [facility] CenterOzzdbooHSCHAEIPFG3430-82-49 20:27:00 Test Item Value Reference Range Interpretation Comments MCHC (test code = MCHC) 34.7 32.0-36.0 [facility] CenterXywbahwKSDXXHFOJF4085-20-88 20:27:00 Test Item Value Reference Range Interpretation Comments MCH (test code = MCH) 31.0 pg 27.0-31.0 [facility] CenterStbtawiMYWIBHLRWA8687-18-56 20:27:00 Test Item Value Reference Range Interpretation Comments Hct (test code = Hct) 38.8 36.0-48.0 [facility] CenterPgodobwUALNBLVQGU8307-40-11 20:27:00 Test Item Value Reference Range Interpretation Comments MCV (test code = MCV) 89.4 80.0-98.0 [facility] CenterNwdudqeDDNCXMJOYE5782-14-50 20:27:00 Test Item Value Reference Range Interpretation Comments MPV (test code = MPV) 8.2 7.4-10.4 [facility] CenterPtztcywKOUAZAVLDP5928-46-38 20:27:00 Test Item Value Reference Range Interpretation Comments Platelet (test code = Platelet) 238 133-450 [place] [id number] 20:27:00 Test Item Value Reference Range Interpretation Comments Ethanol Lvl (test code = Ethanol Lvl) no gt [place] [id number] 20:27:00 Test Item Value Reference Range Interpretation Comments Etoh (%) (test code = Etoh (%)) no gt [facility] MentegramannCARDIAC JQQCDYY2464-16-52 20:27:00 Test Item Value Reference Range Interpretation Comments Total CK (test code = Total CK) 110 12-191 [facility]annCARDIAC USLNSIS9930-20-60 20:27:00 Test Item Value Reference Range Interpretation Comments Troponin-I (test code no gt See_Comment [Auto mated message] The = Troponin-I) system which g enerated this result transmit kuldip reference range : <=0.40. The reference r nilam was not used to interpr et this result as abiodun l/abnormal. [facility] WdsaofhPRIOBEMRWPNK7241-82-24 20:27:00 Test Item Value Reference Range Interpretation Comments AGAP (test code = AGAP) 12.4 10.0-20.0 [facility] NhbnurwOZOROQWNJWOE7100-28-35 20:27:00 Test Item Value Reference Range Interpretation Comments eGFR (test code = eGFR) 84 [facility] HospitalSaiptxlLZGZJLQBHJEU0060-37-33 20:27:00 Test Item Value Reference Range Interpretation Comments Calcium Lvl (test code = Calcium Lvl) 10.3 8.5-10.5 [facility] SrpxmezKRREKHYOILEZ4031-40-96 20:27:00 Test Item Value Reference Range Interpretation Comments Creatinine Lvl (test code = Creatinine 0.96 0.50-1.40 Lvl) [facility] HospitalSolvldjEFFWSZEQCMQK4763-36-99 20:27:00 Test Item Value Reference Range Interpretation Comments Potassium Lvl (test code = Potassium 3.4 3.5-5.1 Lvl) [facility] MentegramannCARNativeADAC CLCMEDJ5152-99-91 20:27:00 Test Item Value Reference Range Interpretation Comments Total CK (test code = Total CK) 110 12-191 [facility] MentegramannCARDIAC NUGGCKY8635-21-31 20:27:00 Test Item Value Reference Range Interpretation Comments Troponin-I (test code no gt See_Comment [Auto mated message] The = Troponin-I) system which g enerated this result transmit kuldip reference range : <=0.40. The reference r nilam was not used to interpr et this result as abiodun l/abnormal. [facility] LofkxpkXFPZSULWISWD9330-21-98 20:27:00 Test Item Value Reference Range Interpretation Comments AGAP (test code = AGAP) 12.4 10.0-20.0 [facility] HospitalNlgqkeqAFSPBVOJWNEI1765-40-44 20:27:00 Test Item Value Reference Range Interpretation Comments eGFR (test code = eGFR) 84 [facility] HospitalVswoifvIDQTAOLUAYNH9640-77-55 20:27:00 Test Item Value Reference Range Interpretation Comments Calcium Lvl (test code = Calcium Lvl) 10.3 8.5-10.5 [facility] HospitalIhtotadPYLLORYHDHKZ0504-30-39 20:27:00 Test Item Value Reference Range Interpretation Comments Creatinine Lvl (test code = Creatinine 0.96 0.50-1.40 Lvl) [facility] HospitalCkdnpugHFNILHYWIZLK7239-78-17 20:27:00 Test Item Value Reference Range Interpretation Comments Potassium Lvl (test code = Potassium 3.4 3.5-5.1 Lvl) [facility] HospitalWluwjqkOIYMFWKVWPSH8579-83-34 20:27:00 Test Item Value Reference Range Interpretation Comments BUN (test code = BUN) 9 7-22 [facility] HospitalSwfliagAASHSZRIMUWZ8506-73-56 20:27:00 Test Item Value Reference Range Interpretation Comments Glucose Lvl (test code = Glucose Lvl) 96 70-99 [facility] HospitalGuqttueWVKGDOYCNKFO8409-09-17 20:27:00 Test Item Value Reference Range Interpretation Comments Sodium Lvl (test code = Sodium Lvl) 139 135-145 [facility] HospitalXqidyeoYKXKBMMDBWVU5470-15-52 20:27:00 Test Item Value Reference Range Interpretation Comments BUN (test code = BUN) 9 7-22 [facility] HospitalZrfpmtvCBUHUBDMJJLA0216-37-54 20:27:00 Test Item Value Reference Range Interpretation Comments Chloride Lvl (test code = Chloride Lvl) 102 95-109 [facility] HospitalFgcwlnzBTUDPRLWURFO3557-09-05 20:27:00 Test Item Value Reference Range Interpretation Comments CO2 (test code = CO2) 28 24-32 [facility]inteSacmdolUHIZNIDIZQBLM0057-43-37 20:27:00 Test Item Value Reference Range Interpretation Comments S Preg (test code = S Negative *NA*(10/31/17 Preg) 3:27 PM) [facility]inteZqfgrwtIZRWDQXOUT9903-30-52 20:27:00 Test Item Value Reference Range Interpretation Comments Lymphocytes (test code = Lymphocytes) 18.7 20.0-40.0 [facility] CenterIxtkzywRUESKCMUAF7710-07-21 20:27:00 Test Item Value Reference Range Interpretation Comments Monocytes (test code = Monocytes) 9.1 2.0-12.0 [facility] CenterAoxbyuqJADXNFVLIR2770-75-40 20:27:00 Test Item Value Reference Range Interpretation Comments Neutrophils # (test code = Neutrophils 6.6 1.5-8.1 #) [facility] CenterLamwtlgCCXQLQGWAL7139-50-96 20:27:00 Test Item Value Reference Range Interpretation Comments Lymphocytes # (test code = Lymphocytes 1.8 1.0-5.5 #) [facility] CenterWipmrscNSYERICQDB9542-52-73 20:27:00 Test Item Value Reference Range Interpretation Comments Segs (test code = Segs) 70.6 45.0-75.0 [facility] CenterYsoqzgqWYSBTRFWSN5788-06-69 20:27:00 Test Item Value Reference Range Interpretation Comments Eosinophils (test code = 1.3 See_Comment [A utomated message] The Eosinophils) system which ge nerated this result tra nsmitted reference range : <=4.0. The reference r nilam was not used to int erpret this result as normal/abnormal . [facility] CenterDktqxqlSTZIJEDYXE4523-71-57 20:27:00 Test Item Value Reference Range Interpretation Comments Basophils (test code = 0.3 See_Comment [Aut omated message] The Basophils) system which ge nerated this result tra nsmitted reference range : <=1.0. The reference r nilam was not used to int erpret this result as normal/abnormal . [facility] HospitalLyzkjlkZEEWKLMZEXLE5194-45-97 20:27:00 Test Item Value Reference Range Interpretation Comments Glucose Lvl (test code = Glucose Lvl) 96 70-99 [facility] CenterTkeqsvmRUKBUJQKPR0157-09-73 20:27:00 Test Item Value Reference Range Interpretation Comments Monocytes # (test code 0.9 See_Comment [Aut omated message] The = Monocytes #) system which generated this result tra nsmitted reference range : <=0.8. The reference r nilam was not used to int erpret this result as normal/abnormal . [facility] CenterCxqqafwZSGUFPUCJU6206-14-04 20:27:00 Test Item Value Reference Range Interpretation Comments Eosinophils # (test code 0.1 See_Comment [A utomated message] The = Eosinophils #) system whic h generated this result tra nsmitted reference range : <=0.5. The reference r nilam was not used to int erpret this result as normal/abnormal . [facility] CenterOcjbynkZVURNEFZYC7414-44-06 20:27:00 Test Item Value Reference Range Interpretation Comments PT (test code = PT) 15.7 s 12.0-14.7 [facility] CenterUgaycbnPAFQKPSXCP8683-48-16 20:27:00 Test Item Value Reference Range Interpretation Comments INR (test code = INR) 1.24 1 0.85-1.17 [facility] CenterUsigcspZHXDVCBTII0679-53-58 20:27:00 Test Item Value Reference Range Interpretation Comments PTT (test code = PTT) 31.0 s 22.9-35.8 [facility] CenterGirtipfUGTQFVUBWI1036-65-00 20:27:00 Test Item Value Reference Range Interpretation Comments Hgb (test code = Hgb) 13.5 12.0-16.0 [facility] [facility]vterjhFCNDDOATHH2239-21-58 20:27:00 Test Item Value Reference Range Interpretation Comments RBC (test code = RBC) 4.35 4.20-5.40 [facility]PvfvswdMXTSQGXTBC7047-46-41 20:27:00 Test Item Value Reference Range Interpretation Comments RDW (test code = RDW) 13.4 11.5-14.5 [facility] CenterUhxiwyfROHASSCQQJ7709-70-23 20:27:00 Test Item Value Reference Range Interpretation Comments WBC (test code = WBC) 9.4 3.7-10.4 [facility] CenterMmorrggLSRQUVNVYO8465-70-84 20:27:00 Test Item Value Reference Range Interpretation Comments MCHC (test code = MCHC) 34.7 32.0-36.0 [facility]CpslwdoMXHFEUJIPFZI3109-23-04 20:27:00 Test Item Value Reference Range Interpretation Comments Sodium Lvl (test code = Sodium Lvl) 139 135-145 [facility]XyyjdtoZUDELUWCFO5556-47-32 20:27:00 Test Item Value Reference Range Interpretation Comments MCH (test code = MCH) 31.0 pg 27.0-31.0 [facility] CenterWraxuniARLLMPJHWJ4645-26-52 20:27:00 Test Item Value Reference Range Interpretation Comments Hct (test code = Hct) 38.8 36.0-48.0 [facility] CenterVmsatwdIOOCXOQBTD2983-48-51 20:27:00 Test Item Value Reference Range Interpretation Comments MCV (test code = MCV) 89.4 80.0-98.0 [facility] CenterVjpbbexBEDVTRYGUB2874-73-19 20:27:00 Test Item Value Reference Range Interpretation Comments MPV (test code = MPV) 8.2 7.4-10.4 [facility] CenterSjonkovJQJUQQTKPK1299-83-68 20:27:00 Test Item Value Reference Range Interpretation Comments Platelet (test code = Platelet) 238 133-450 [facility]LvxiynbHKLLKSLOAE5458-05-65 20:27:00 Test Item Value Reference Range Interpretation Comments Ethanol Lvl (test code = Ethanol Lvl) no gt [place] [id number] 20:27:00 Test Item Value Reference Range Interpretation Comments Etoh (%) (test code = Etoh (%)) no gt [facility]NfpjteqULKDJMZMBIPD0858-44-50 20:27:00 Test Item Value Reference Range Interpretation Comments Chloride Lvl (test code = Chloride Lvl) 102 95-109 [facility] HospitalBxctawdLIRTAVFIJKZZ9168-25-16 20:27:00 Test Item Value Reference Range Interpretation Comments CO2 (test code = CO2) 28 24-32 [place] [id number] 20:27:00 Test Item Value Reference Range Interpretation Comments S Preg (test code = S Negative *NA*(10/31/17 Preg) 3:27 PM) [facility] CenterPlujardGHVLEULSLE0630-69-72 20:27:00 Test Item Value Reference Range Interpretation Comments Lymphocytes (test code = Lymphocytes) 18.7 20.0-40.0 [facility] CenterHwdpuakHTQEXZONEC0833-49-24 20:27:00 Test Item Value Reference Range Interpretation Comments Monocytes (test code = Monocytes) 9.1 2.0-12.0 [facility] CenterHqsoxvuDQPZQVKQNR6480-45-08 20:27:00 Test Item Value Reference Range Interpretation Comments Neutrophils # (test code = Neutrophils 6.6 1.5-8.1 #) [facility] CenterCqlakjdFMBZAHTBFW7430-28-85 20:27:00 Test Item Value Reference Range Interpretation Comments Lymphocytes # (test code = Lymphocytes 1.8 1.0-5.5 #) [facility] CenterBikgfoeSKVUTJSDBX1775-66-54 20:27:00 Test Item Value Reference Range Interpretation Comments Segs (test code = Segs) 70.6 45.0-75.0 [facility] CenterBlynoljTYRTKTDKWA7060-26-55 20:27:00 Test Item Value Reference Range Interpretation Comments Eosinophils (test code = 1.3 See_Comment [A utomated message] The Eosinophils) system which ge nerated this result tra nsmitted reference range : <=4.0. The reference r nilam was not used to int erpret this result as normal/abnormal . [facility] CenterFzmohkuRMOMGAIPVQ2830-62-97 20:27:00 Test Item Value Reference Range Interpretation Comments Basophils (test code = 0.3 See_Comment [Aut omated message] The Basophils) system which ge nerated this result tra nsmitted reference range : <=1.0. The reference r nilam was not used to int erpret this result as normal/abnormal . [facility] CenterTijolsaKJZZFZXWMV9837-75-82 20:27:00 Test Item Value Reference Range Interpretation Comments Monocytes # (test code 0.9 See_Comment [Aut omated message] The = Monocytes #) system which generated this result tra nsmitted reference range : <=0.8. The reference r nilam was not used to int erpret this result as normal/abnormal . [facility] CenterChbdxboDYICYPISWA1350-36-39 20:27:00 Test Item Value Reference Range Interpretation Comments Eosinophils # (test code 0.1 See_Comment [A utomated message] The = Eosinophils #) system whic h generated this result tra nsmitted reference range : <=0.5. The reference r nilam was not used to int erpret this result as normal/abnormal . [facility] CenterAxqrsgwIKRVIVHSNE2555-53-36 20:27:00 Test Item Value Reference Range Interpretation Comments PT (test code = PT) 15.7 s 12.0-14.7 [facility] CenterYrrzbggWILJCZUFXJ0809-33-75 20:27:00 Test Item Value Reference Range Interpretation Comments INR (test code = INR) 1.24 1 0.85-1.17 [facility] CenterWkwuqjfDJMMYNIGYG8436-95-17 20:27:00 Test Item Value Reference Range Interpretation Comments PTT (test code = PTT) 31.0 s 22.9-35.8 [facility] CenterSoyejjjSAHBEVRMMO1448-57-73 20:27:00 Test Item Value Reference Range Interpretation Comments Hgb (test code = Hgb) 13.5 12.0-16.0 [facility]inteNxqymkiDTGPFIMJVE6769-37-23 20:27:00 Test Item Value Reference Range Interpretation Comments RBC (test code = RBC) 4.35 4.20-5.40 [facility] HospitalJacoqxoUDBXBGPYKX9032-40-17 20:27:00 Test Item Value Reference Range Interpretation Comments RDW (test code = RDW) 13.4 11.5-14.5 [facility] HospitalCucirphAJEBZPPZRG6649-29-67 20:27:00 Test Item Value Reference Range Interpretation Comments WBC (test code = WBC) 9.4 3.7-10.4 [facility] HospitalNxbogujCSPUZYTDYC6675-63-69 20:27:00 Test Item Value Reference Range Interpretation Comments MCHC (test code = MCHC) 34.7 32.0-36.0 [facility] HospitalOdturnaGECULZPOLD7722-57-38 20:27:00 Test Item Value Reference Range Interpretation Comments MCH (test code = MCH) 31.0 pg 27.0-31.0 [facility] HospitalNyqfgdpPEDNNHYOFZ1537-85-93 20:27:00 Test Item Value Reference Range Interpretation Comments Hct (test code = Hct) 38.8 36.0-48.0 [facility] HospitalBgmfhhkOCIZHWHVXE3138-20-44 20:27:00 Test Item Value Reference Range Interpretation Comments MCV (test code = MCV) 89.4 80.0-98.0 [facility] HospitalNwvooeeTHEQQJFTQL2850-09-77 20:27:00 Test Item Value Reference Range Interpretation Comments MPV (test code = MPV) 8.2 7.4-10.4 [facility] HospitalFtingabFOWBPLSXCO8918-02-10 20:27:00 Test Item Value Reference Range Interpretation Comments Platelet (test code = Platelet) 238 133-450 [facility]inteSstbophTMTRXFAABJ0434-94-48 20:27:00 Test Item Value Reference Range Interpretation Comments Ethanol Lvl (test code = Ethanol Lvl) no gt [facility] HospitalXilbknpOYMQIJWAWY5336-73-00 20:27:00 Test Item Value Reference Range Interpretation Comments Etoh (%) (test code = Etoh (%)) no gt [facility] HospitalannCARDIAC QSUOLOQ9480-58-10 20:27:00 Test Item Value Reference Range Interpretation Comments Total CK (test code = Total CK) 110 12-191 [facility] PointeCARDIAC DMYCJOG0980-93-72 20:27:00 Test Item Value Reference Range Interpretation Comments Troponin-I (test code no gt See_Comment [Auto mated message] The = Troponin-I) system which g enerated this result transmit kuldip reference range : <=0.40. The reference r nilam was not used to interpr et this result as abiodun l/abnormal. [facility] HospitalCczteruWNCBJINMJXMQ2830-81-19 20:27:00 Test Item Value Reference Range Interpretation Comments AGAP (test code = AGAP) 12.4 10.0-20.0 [facility] HospitalDofqynzUSWZKCNHBAUF6335-55-49 20:27:00 Test Item Value Reference Range Interpretation Comments eGFR (test code = eGFR) 84 [facility] HospitalGenqyqzHMAUHIQYBQWJ6440-24-07 20:27:00 Test Item Value Reference Range Interpretation Comments Calcium Lvl (test code = Calcium Lvl) 10.3 8.5-10.5 [facility] HospitalVearinrGNXRNQUUOUNC5386-06-92 20:27:00 Test Item Value Reference Range Interpretation Comments Creatinine Lvl (test code = Creatinine 0.96 0.50-1.40 Lvl) [facility] HospitalPxvtleuZRZBLUEVFVMU2080-21-47 20:27:00 Test Item Value Reference Range Interpretation Comments Potassium Lvl (test code = Potassium 3.4 3.5-5.1 Lvl) [facility] HospitalRrfgzxkAPVZUGRZBDYJ2224-56-18 20:27:00 Test Item Value Reference Range Interpretation Comments BUN (test code = BUN) 9 7-22 [facility] HospitalMwuwxwmSIWZICFCCUZT9686-72-55 20:27:00 Test Item Value Reference Range Interpretation Comments Glucose Lvl (test code = Glucose Lvl) 96 70-99 [facility] HospitalCjwubgqFTPMDUBPWPPL7204-29-47 20:27:00 Test Item Value Reference Range Interpretation Comments Sodium Lvl (test code = Sodium Lvl) 139 135-145 [facility] HospitalKjujfrsOYNUPGRCAFKL4685-97-67 20:27:00 Test Item Value Reference Range Interpretation Comments Chloride Lvl (test code = Chloride Lvl) 102 95-109 [facility] HospitalPgrsowpIESJXFVGBNKU5626-71-25 20:27:00 Test Item Value Reference Range Interpretation Comments CO2 (test code = CO2) 28 24-32 [facility]VpnqiieNUREIKCBDFKPI4532-77-13 20:27:00 Test Item Value Reference Range Interpretation Comments S Preg (test code = S Negative *NA*(8/8/18 Preg) 3:27 PM) [facility] CenterQvauulkOHLNWVVCDG0870-39-66 20:27:00 Test Item Value Reference Range Interpretation Comments Lymphocytes (test code = Lymphocytes) 18.7 20.0-40.0 [facility] CenterFxyavryBQQJTKOKZA8046-98-02 20:27:00 Test Item Value Reference Range Interpretation Comments Monocytes (test code = Monocytes) 9.1 2.0-12.0 [facility] CenterCrwnqumJVIYBNXILV2083-22-54 20:27:00 Test Item Value Reference Range Interpretation Comments Neutrophils # (test code = Neutrophils 6.6 1.5-8.1 #) [facility] CenterSwkwausHEFLVTSWAU1851-31-79 20:27:00 Test Item Value Reference Range Interpretation Comments Lymphocytes # (test code = Lymphocytes 1.8 1.0-5.5 #) [facility] CenterMbblkczSYYKHPMUGY7267-87-06 20:27:00 Test Item Value Reference Range Interpretation Comments Segs (test code = Segs) 70.6 45.0-75.0 [facility] CenterJhhcsecWXZQOWVVAR0898-92-19 20:27:00 Test Item Value Reference Range Interpretation Comments Eosinophils (test code = 1.3 See_Comment [A utomated message] The Eosinophils) system which ge nerated this result tra nsmitted reference range : <=4.0. The reference r nilam was not used to int erpret this result as normal/abnormal . [facility] CenterEyjyzjrDRXZCGGCMA9294-03-57 20:27:00 Test Item Value Reference Range Interpretation Comments Basophils (test code = 0.3 See_Comment [Aut omated message] The Basophils) system which ge nerated this result tra nsmitted reference range : <=1.0. The reference r nilam was not used to int erpret this result as normal/abnormal . [facility] CenterJhbigxsFIEHTQLAUO2063-92-60 20:27:00 Test Item Value Reference Range Interpretation Comments Monocytes # (test code 0.9 See_Comment [Aut omated message] The = Monocytes #) system which generated this result tra nsmitted reference range : <=0.8. The reference r nilam was not used to int erpret this result as normal/abnormal . [facility] CenterXpecvopOTFZEHAVXQ1177-97-85 20:27:00 Test Item Value Reference Range Interpretation Comments Eosinophils # (test code 0.1 See_Comment [A utomated message] The = Eosinophils #) system whic h generated this result tra nsmitted reference range : <=0.5. The reference r nilam was not used to int erpret this result as normal/abnormal . [facility] CenterGflexmwOOHUPJQHBS3985-84-30 20:27:00 Test Item Value Reference Range Interpretation Comments PT (test code = PT) 15.7 s 12.0-14.7 [facility] CenterTgxyzhyXWECGXTHDY9393-71-85 20:27:00 Test Item Value Reference Range Interpretation Comments INR (test code = INR) 1.24 1 0.85-1.17 [facility] CenterRwhorpcWUZSJWEBRD8764-06-10 20:27:00 Test Item Value Reference Range Interpretation Comments PTT (test code = PTT) 31.0 s 22.9-35.8 [facility] CenterFodotjcAXLECJZJIM7758-48-91 20:27:00 Test Item Value Reference Range Interpretation Comments Hgb (test code = Hgb) 13.5 12.0-16.0 [facility] CenterGjuiainIUVPECXTGI8485-49-66 20:27:00 Test Item Value Reference Range Interpretation Comments RBC (test code = RBC) 4.35 4.20-5.40 [facility] CenterAyyknynQLLENXFITC5599-60-08 20:27:00 Test Item Value Reference Range Interpretation Comments RDW (test code = RDW) 13.4 11.5-14.5 [facility] CenterBdjujjyOOMIXKGNQV7742-13-21 20:27:00 Test Item Value Reference Range Interpretation Comments WBC (test code = WBC) 9.4 3.7-10.4 [facility] CenterVxghubuNBCHZAAPWG7813-84-42 20:27:00 Test Item Value Reference Range Interpretation Comments MCHC (test code = MCHC) 34.7 32.0-36.0 [facility] CenterUiwdwngKBRTFALEED2653-94-74 20:27:00 Test Item Value Reference Range Interpretation Comments MCH (test code = MCH) 31.0 pg 27.0-31.0 [facility] CenterGrzzwadSZICFIPVNC1569-00-06 20:27:00 Test Item Value Reference Range Interpretation Comments Hct (test code = Hct) 38.8 36.0-48.0 [facility] CenterRmliactGXRWBMZWWR1215-61-09 20:27:00 Test Item Value Reference Range Interpretation Comments MCV (test code = MCV) 89.4 80.0-98.0 [facility] CenterFgejcoyYROLNIPKQE1628-94-90 20:27:00 Test Item Value Reference Range Interpretation Comments MPV (test code = MPV) 8.2 7.4-10.4 [facility] PointeWhhtnpgBWOUHCNOIU5274-05-27 20:27:00 Test Item Value Reference Range Interpretation Comments Platelet (test code = Platelet) 238 133-450 [place] [id number] 20:27:00 Test Item Value Reference Range Interpretation Comments Ethanol Lvl (test code = Ethanol Lvl) no gt [facility] HospitalBtalxufHZUZDEJNMM0667-37-07 20:27:00 Test Item Value Reference Range Interpretation Comments Etoh (%) (test code = Etoh (%)) no [facility] [employer] [facility]2018-08-03 05:19:00 Test Item Value Reference Range Interpretation Comments Troponin-I (test code no gt See_Comment [Auto mated message] The = Troponin-I) system which g enerated this result transmit kuldip reference range : <=0.40. The reference r nilam was not used to interpr et this result as abiodun l/abnormal. [facility] [employer] [facility]2018-08-03 05:19:00 Test Item Value Reference Range Interpretation Comments Troponin-I (test code no gt See_Comment [Auto mated message] The = Troponin-I) system which g enerated this result transmit kuldip reference range : <=0.40. The reference r nilam was not used to interpr et this result as abiodun l/abnormal. [facility] [employer] [facility]2018-08-03 05:19:00 Test Item Value Reference Range Interpretation Comments Troponin-I (test code no gt See_Comment [Auto mated message] The = Troponin-I) system which g enerated this result transmit kuldip reference range : <=0.40. The reference r nilam was not used to interpr et this result as abiodun l/abnormal. [facility] [facility]2018-08-03 05:19:00 Test Item Value Reference Range Interpretation Comments Troponin-I (test code no gt See_Comment [Auto mated message] The = Troponin-I) system which g enerated this result transmit kuldip reference range : <=0.40. The reference r nilam was not used to interpr et this result as abiodun l/abnormal. [facility]2018-08-03 05:19:00 Test Item Value Reference Range Interpretation Comments Troponin-I (test code no gt See_Comment [Auto mated message] The = Troponin-I) system which g enerated this result transmit kuldip reference range : <=0.40. The reference r nilam was not used to interpr et this result as abiodun l/abnormal. [facility]2018-08-03 01:51:00 Test Item Value Reference Range Interpretation Comments Total CK (test code = Total CK) 121 12-191 [facility] [employer] [facility]2018-08-03 01:51:00 Test Item Value Reference Range Interpretation Comments Troponin-I (test code no gt See_Comment [Auto mated message] The = Troponin-I) system which g enerated this result transmit kuldip reference range : <=0.40. The reference r nilam was not used to interpr et this result as abiodun l/abnormal. [facility]2018-08-03 01:51:00 Test Item Value Reference Range Interpretation Comments CK MB (test code = CK MB) no gt 0.5-3.6 [facility]2018-08-03 01:51:00 Test Item Value Reference Range Interpretation Comments CK MB Index (test no gt See_Comment [Automate d message] The code = CK MB Index) system w [facility] generated this result transmit kuldip reference range : <=2.5. The reference range was not used to interpr et this result as abiodun l/abnormal. [employer]2018-08-03 01:51:00 Test Item Value Reference Range Interpretation Comments Lipase Lvl (test code = Lipase Lvl) 217 73-393 [facility] 250ok2018-08-03 01:51:00 Test Item Value Reference Range Interpretation Comments Total Protein (test code = Total 8.4 6.4-8.4 Protein) [facility]ok2018-08-03 01:51:00 Test Item Value Reference Range Interpretation Comments Albumin Lvl (test code = Albumin Lvl) 3.7 3.5-5.0 [facility] 250ok2018-08-03 01:51:00 Test Item Value Reference Range Interpretation Comments ALT (test code = ALT) 24 See_Comment [Auto mated message] The system which ge nerated this result transmit kuldip reference range : <=65. The reference range was not used to interpr et this result as abiodun l/abnormal. [facility]2018-08-03 01:51:00 Test Item Value Reference Range Interpretation Comments AST (test code = AST) 18 See_Comment [Auto mated message] The system which ge nerated this result transmit kuldip reference range : <=37. The reference range was not used to interpr et this result as abiodun l/abnormal. [place] 188938-08-03 01:51:00 Test Item Value Reference Range Interpretation Comments Bili Direct (test code 0.1 See_Comment [Aut omated message] The = Bili Direct) system which generated this result tra nsmitted reference range : <=0.3. The reference r nilam was not used to int erpret this result as abiodun l/abnormal. [facility]2018-08-03 01:51:00 Test Item Value Reference Range Interpretation Comments Alk Phos (test code = Alk Phos) 86 39-136 [facility]2018-08-03 01:51:00 Test Item Value Reference Range Interpretation Comments Bili Total (test code = Bili Total) 0.6 0.2-1.3 [facility]2018-08-03 01:51:00 Test Item Value Reference Range Interpretation Comments Bili Indirect (test 0.5 See_Comment [Automa kuldip message] The code = Bili Indirect) system which generated this result tra nsmitted reference range : <=1.0. The reference r nilam was not used to int erpret this result as normal/abnormal . [facility]2018-08-03 01:51:00 Test Item Value Reference Range Interpretation Comments Globulin (test code = Globulin) 4.7 2.7-4.2 [place] 188938-08-03 01:51:00 Test Item Value Reference Range Interpretation Comments A/G Ratio (test code = A/G Ratio) 0.8 1 0.7-1.6 [place] 188938-08-03 01:51:00 Test Item Value Reference Range Interpretation Comments eGFR (test code = eGFR) 124 [facility]2018-08-03 01:51:00 Test Item Value Reference Range Interpretation Comments Creatinine Lvl (test code = Creatinine 0.70 0.50-1.40 Lvl) [facility]2018-08-03 01:51:00 Test Item Value Reference Range Interpretation Comments Sodium Lvl (test code = Sodium Lvl) 134 135-145 [place] 188938-08-03 01:51:00 Test Item Value Reference Range Interpretation Comments Potassium Lvl (test code = Potassium 3.6 3.5-5.1 Lvl) [place] 188938-08-03 01:51:00 Test Item Value Reference Range Interpretation Comments CO2 (test code = CO2) 25 24-32 [place] 188938-08-03 01:51:00 Test Item Value Reference Range Interpretation Comments Chloride Lvl (test code = Chloride Lvl) 103 95-109 [place] 188938-08-03 01:51:00 Test Item Value Reference Range Interpretation Comments Calcium Lvl (test code = Calcium Lvl) 10.3 8.5-10.5 [place] 188938-08-03 01:51:00 Test Item Value Reference Range Interpretation Comments Glucose Lvl (test code = Glucose Lvl) 93 70-99 [facility]2018-08-03 01:51:00 Test Item Value Reference Range Interpretation Comments BUN (test code = BUN) 8 7-22 [facility]2018-08-03 01:51:00 Test Item Value Reference Range Interpretation Comments AGAP (test code = AGAP) 9.6 10.0-20.0 [facility] CenterYofsvakISOJTCFBLE7494-54-49 01:51:00 Test Item Value Reference Range Interpretation Comments Basophils # (test code 0.0 See_Comment [Aut omated message] The = Basophils #) system which generated this result tra nsmitted reference range : <=0.2. The reference r nilam was not used to int erpret this result as normal/abnormal . [facility] CenterCiiyflrLSIHXTMILM8762-29-67 01:51:00 Test Item Value Reference Range Interpretation Comments Lymphocytes # (test code = Lymphocytes 2.4 1.0-5.5 #) [facility] CenterTdegvcfCPOMECQNSW8074-53-80 01:51:00 Test Item Value Reference Range Interpretation Comments Monocytes # (test code 0.6 See_Comment [Aut omated message] The = Monocytes #) system which generated this result tra nsmitted reference range : <=0.8. The reference r nilam was not used to int erpret this result as normal/abnormal . [facility] CenterUgeqadyLZHOMGVJKE4023-17-31 01:51:00 Test Item Value Reference Range Interpretation Comments Eosinophils # (test code 0.1 See_Comment [A utomated message] The = Eosinophils #) system whic h generated this result tra nsmitted reference range : <=0.5. The reference r nilam was not used to int erpret this result as normal/abnormal . [facility] CenterXtzdugcEQFDOLKUBZ9631-07-75 01:51:00 Test Item Value Reference Range Interpretation Comments Eosinophils (test code = 2.1 See_Comment [A utomated message] The Eosinophils) system which ge nerated this result tra nsmitted reference range : <=4.0. The reference r nilam was not used to int erpret this result as normal/abnormal . [facility] CenterZmbntwkUBUGLDTYIR4273-95-28 01:51:00 Test Item Value Reference Range Interpretation Comments Basophils (test code = 0.4 See_Comment [Aut omated message] The Basophils) system which ge nerated this result tra nsmitted reference range : <=1.0. The reference r nilam was not used to int erpret this result as normal/abnormal . [facility] CenterJfgiuhmVJPGFGAKEV3218-15-24 01:51:00 Test Item Value Reference Range Interpretation Comments Neutrophils # (test code = Neutrophils 3.7 1.5-8.1 #) [facility] CenterKqhzmajHOGMQMRTTF9523-02-73 01:51:00 Test Item Value Reference Range Interpretation Comments Lymphocytes (test code = Lymphocytes) 35.4 20.0-40.0 [facility] CenterBuayaujEFFTZZLUSA8400-57-16 01:51:00 Test Item Value Reference Range Interpretation Comments Monocytes (test code = Monocytes) 8.2 2.0-12.0 [facility]WuwqkagTTQYZFMNIE3349-21-54 01:51:00 Test Item Value Reference Range Interpretation Comments Segs (test code = Segs) 53.9 45.0-75.0 [facility] CenterDsahsfxIKEXSDPIHZ8089-56-90 01:51:00 Test Item Value Reference Range Interpretation Comments MPV (test code = MPV) 7.8 7.4-10.4 [place] 243558-08-03 01:51:00 Test Item Value Reference Range Interpretation Comments Platelet (test code = Platelet) 251 133-450 [facility]HjgljopRXYGYNKEUP8382-84-06 01:51:00 Test Item Value Reference Range Interpretation Comments RDW (test code = RDW) 13.4 11.5-14.5 [facility] CenterEjeewuaJNKCZIGORE6990-94-52 01:51:00 Test Item Value Reference Range Interpretation Comments MCHC (test code = MCHC) 34.1 32.0-36.0 [facility] CenterOewrgvcIQMXDCPXRY1745-21-63 01:51:00 Test Item Value Reference Range Interpretation Comments MCH (test code = MCH) 30.7 pg 27.0-31.0 [facility] HospitalDmroktoFCWWAOBEHH6270-28-30 01:51:00 Test Item Value Reference Range Interpretation Comments MCV (test code = MCV) 90.0 80.0-98.0 [facility] CenterNbmhuxrSFLSTOFNQF9073-17-89 01:51:00 Test Item Value Reference Range Interpretation Comments Hct (test code = Hct) 40.4 36.0-48.0 [facility] CenterJnbmypnAYTATMJBKE2268-91-67 01:51:00 Test Item Value Reference Range Interpretation Comments Hgb (test code = Hgb) 13.8 12.0-16.0 [facility] CenterLeflgatYWHRFZXHGZ3298-61-79 01:51:00 Test Item Value Reference Range Interpretation Comments RBC (test code = RBC) 4.49 4.20-5.40 [facility] CenterVtngfshKDPLLOFROG4043-40-86 01:51:00 Test Item Value Reference Range Interpretation Comments WBC (test code = WBC) 6.9 3.7-10.4 [facility]sCOM[facility] [id number] 01:51:00 Test Item Value Reference Range Interpretation Comments Total CK (test code = Total CK) 121 12-191 [facility] [id number] 01:51:00 Test Item Value Reference Range Interpretation Comments Troponin-I (test code no gt See_Comment [Auto mated message] The = Troponin-I) system which g enerated this result transmit kuldip reference range : <=0.40. The reference r nilam was not used to interpr et this result as abiodun l/abnormal. [facility] [id number] 01:51:00 Test Item Value Reference Range Interpretation Comments CK MB (test code = CK MB) no gt 0.5-3.6 [facility]inte[facility]ARDI[facility] [id number] 01:51:00 Test Item Value Reference Range Interpretation Comments CK MB Index (test no gt See_Comment [Automate d message] The code = CK MB Index) system w [facility] generated this result transmit kuldip reference range : <=2.5. The reference range was not used to interpr et this result as abiodun l/abnormal. [facility] [id number] 01:51:00 Test Item Value Reference Range Interpretation Comments Lipase Lvl (test code = Lipase Lvl) 217 73-393 [facility] [id number] 01:51:00 Test Item Value Reference Range Interpretation Comments Total Protein (test code = Total 8.4 6.4-8.4 Protein) [facility] [id number] 01:51:00 Test Item Value Reference Range Interpretation Comments Albumin Lvl (test code = Albumin Lvl) 3.7 3.5-5.0 [facility] [id number] 01:51:00 Test Item Value Reference Range Interpretation Comments ALT (test code = ALT) 24 See_Comment [Auto mated message] The system which ge nerated this result transmit kuldip reference range : <=65. The reference range was not used to interpr et this result as abiodun l/abnormal. [facility] [id number] 01:51:00 Test Item Value Reference Range Interpretation Comments AST (test code = AST) 18 See_Comment [Auto mated message] The system which ge nerated this result transmit kuldip reference range : <=37. The reference range was not used to interpr et this result as abiodun l/abnormal. [facility] [id number] 01:51:00 Test Item Value Reference Range Interpretation Comments Bili Direct (test code 0.1 See_Comment [Aut omated message] The = Bili Direct) system which generated this result tra nsmitted reference range : <=0.3. The reference r nilam was not used to int erpret this result as abiodun l/abnormal. [facility] [id number] 01:51:00 Test Item Value Reference Range Interpretation Comments Alk Phos (test code = Alk Phos) 86 39-136 [facility]2018-08-03 01:51:00 Test Item Value Reference Range Interpretation Comments Bili Total (test code = Bili Total) 0.6 0.2-1.3 [facility]2018-08-03 01:51:00 Test Item Value Reference Range Interpretation Comments Bili Indirect (test 0.5 See_Comment [Automa kuldip message] The code = Bili Indirect) system which generated this result tra nsmitted reference range : <=1.0. The reference r nilam was not used to int erpret this result as normal/abnormal . [facility]2018-08-03 01:51:00 Test Item Value Reference Range Interpretation Comments Globulin (test code = Globulin) 4.7 2.7-4.2 [facility]2018-08-03 01:51:00 Test Item Value Reference Range Interpretation Comments A/G Ratio (test code = A/G Ratio) 0.8 1 0.7-1.6 [facility]2018-08-03 01:51:00 Test Item Value Reference Range Interpretation Comments eGFR (test code = eGFR) 124 [facility]2018-08-03 01:51:00 Test Item Value Reference Range Interpretation Comments Creatinine Lvl (test code = Creatinine 0.70 0.50-1.40 Lvl) [facility]2018-08-03 01:51:00 Test Item Value Reference Range Interpretation Comments Sodium Lvl (test code = Sodium Lvl) 134 135-145 [facility]2018-08-03 01:51:00 Test Item Value Reference Range Interpretation Comments Potassium Lvl (test code = Potassium 3.6 3.5-5.1 Lvl) [facility]2018-08-03 01:51:00 Test Item Value Reference Range Interpretation Comments CO2 (test code = CO2) 25 24-32 [facility]2018-08-03 01:51:00 Test Item Value Reference Range Interpretation Comments Chloride Lvl (test code = Chloride Lvl) 103 95-109 [facility]2018-08-03 01:51:00 Test Item Value Reference Range Interpretation Comments Calcium Lvl (test code = Calcium Lvl) 10.3 8.5-10.5 [facility]2018-08-03 01:51:00 Test Item Value Reference Range Interpretation Comments Glucose Lvl (test code = Glucose Lvl) 93 70-99 [facility]2018-08-03 01:51:00 Test Item Value Reference Range Interpretation Comments BUN (test code = BUN) 8 7-22 [facility]2018-08-03 01:51:00 Test Item Value Reference Range Interpretation Comments AGAP (test code = AGAP) 9.6 10.0-20.0 [facility] CenterCigjwjdJVYIWOWXRG2695-52-43 01:51:00 Test Item Value Reference Range Interpretation Comments Basophils # (test code 0.0 See_Comment [Aut omated message] The = Basophils #) system which generated this result tra nsmitted reference range : <=0.2. The reference r nilam was not used to int erpret this result as normal/abnormal . [facility] CenterCoqjgnrHWMNVKWJHC0893-27-68 01:51:00 Test Item Value Reference Range Interpretation Comments Lymphocytes # (test code = Lymphocytes 2.4 1.0-5.5 #) [facility] CenterKlgedmyWVOAVCLDED9849-53-64 01:51:00 Test Item Value Reference Range Interpretation Comments Monocytes # (test code 0.6 See_Comment [Aut omated message] The = Monocytes #) system which generated this result tra nsmitted reference range : <=0.8. The reference r nilam was not used to int erpret this result as normal/abnormal . [facility] CenterGuexwcpQHTLITZZJH0921-49-23 01:51:00 Test Item Value Reference Range Interpretation Comments Eosinophils # (test code 0.1 See_Comment [A utomated message] The = Eosinophils #) system whic h generated this result tra nsmitted reference range : <=0.5. The reference r nilam was not used to int erpret this result as normal/abnormal . [facility] CenterPajvsvvEGPFGKVGUR6071-04-36 01:51:00 Test Item Value Reference Range Interpretation Comments Eosinophils (test code = 2.1 See_Comment [A utomated message] The Eosinophils) system which ge nerated this result tra nsmitted reference range : <=4.0. The reference r nilam was not used to int erpret this result as normal/abnormal . [facility] CenterHvhugbcUMGMBULOIQ0144-54-71 01:51:00 Test Item Value Reference Range Interpretation Comments Basophils (test code = 0.4 See_Comment [Aut omated message] The Basophils) system which ge nerated this result tra nsmitted reference range : <=1.0. The reference r nilam was not used to int erpret this result as normal/abnormal . [facility] CenterDdrtjrtPCRWEIBNCC4607-36-55 01:51:00 Test Item Value Reference Range Interpretation Comments Neutrophils # (test code = Neutrophils 3.7 1.5-8.1 #) [facility] CenterOlgpimiUXZKRIAUNN9264-24-60 01:51:00 Test Item Value Reference Range Interpretation Comments Lymphocytes (test code = Lymphocytes) 35.4 20.0-40.0 [facility] CenterDxrelolJIYSJKSXDM4929-16-39 01:51:00 Test Item Value Reference Range Interpretation Comments Monocytes (test code = Monocytes) 8.2 2.0-12.0 [facility] CenterVtbwzdhOSBXOAXBMD6855-65-02 01:51:00 Test Item Value Reference Range Interpretation Comments Segs (test code = Segs) 53.9 45.0-75.0 [facility] CenterAvhbvjpVCMNSFVKKG6963-17-22 01:51:00 Test Item Value Reference Range Interpretation Comments MPV (test code = MPV) 7.8 7.4-10.4 [facility] CenterUnwhzyrUKEDLPUFAI5157-36-54 01:51:00 Test Item Value Reference Range Interpretation Comments Platelet (test code = Platelet) 251 133-450 [facility] CenterDjxygcqCPGCTBEBIW0355-69-43 01:51:00 Test Item Value Reference Range Interpretation Comments RDW (test code = RDW) 13.4 11.5-14.5 [facility] CenterWjiiicfXKJZDVGKOT2908-85-82 01:51:00 Test Item Value Reference Range Interpretation Comments MCHC (test code = MCHC) 34.1 32.0-36.0 [facility] CenterQbpygiiKLGJHFPHFL6415-65-44 01:51:00 Test Item Value Reference Range Interpretation Comments MCH (test code = MCH) 30.7 pg 27.0-31.0 [facility] CenterCyrwkeoGCMWXOUUCR9000-06-84 01:51:00 Test Item Value Reference Range Interpretation Comments MCV (test code = MCV) 90.0 80.0-98.0 [facility] CenterUvjobxnQOAACIVQLO9550-71-84 01:51:00 Test Item Value Reference Range Interpretation Comments Hct (test code = Hct) 40.4 36.0-48.0 [facility] CenterOrjgowmTKEIRIYOLK0623-18-14 01:51:00 Test Item Value Reference Range Interpretation Comments Hgb (test code = Hgb) 13.8 12.0-16.0 [facility] PointeQzcwkipUCBNONMWJA3973-50-01 01:51:00 Test Item Value Reference Range Interpretation Comments RBC (test code = RBC) 4.49 4.20-5.40 [facility] PointeBgmhsecUZNGRFXRMO3839-90-34 01:51:00 Test Item Value Reference Range Interpretation Comments WBC (test code = WBC) 6.9 3.7-10.4 [facility] HospitalW[facility]2018-08-03 01:51:00 Test Item Value Reference Range Interpretation Comments Total CK (test code = Total CK) 121 12-191 [facility] HospitalInterlude [id number] 01:51:00 Test Item Value Reference Range Interpretation Comments Troponin-I (test code no gt See_Comment [Auto mated message] The = Troponin-I) system which g enerated this result transmit kuldip reference range : <=0.40. The reference r nilam was not used to interpr et this result as abiodun l/abnormal. [facility] HospitalInter[facility] [id number] 01:51:00 Test Item Value Reference Range Interpretation Comments CK MB (test code = CK MB) no gt 0.5-3.6 [facility] HospitalMAYKORNEON ConciergeHEBXMNJ4964-40-21 01:51:00 Test Item Value Reference Range Interpretation Comments CK MB Index (test no gt See_Comment [Automate d message] The code = CK MB Index) system w [facility] generated this result transmit kuldip reference range : <=2.5. The reference range was not used to interpr et this result as abiodun l/abnormal. [facility] [place] [id number] 01:51:00 Test Item Value Reference Range Interpretation Comments Lipase Lvl (test code = Lipase Lvl) 217 73-393 [facility] 250ok2018-08-03 01:51:00 Test Item Value Reference Range Interpretation Comments Total Protein (test code = Total 8.4 6.4-8.4 Protein) [facility] 250ok2018-08-03 01:51:00 Test Item Value Reference Range Interpretation Comments Albumin Lvl (test code = Albumin Lvl) 3.7 3.5-5.0 [facility]2018-08-03 01:51:00 Test Item Value Reference Range Interpretation Comments ALT (test code = ALT) 24 See_Comment [Auto mated message] The system which ge nerated this result transmit kuldip reference range : <=65. The reference range was not used to interpr et this result as abiodun l/abnormal. [facility]2018-08-03 01:51:00 Test Item Value Reference Range Interpretation Comments AST (test code = AST) 18 See_Comment [Auto mated message] The system which ge nerated this result transmit kuldip reference range : <=37. The reference range was not used to interpr et this result as abiodun l/abnormal. [place] 188938-08-03 01:51:00 Test Item Value Reference Range Interpretation Comments Bili Direct (test code 0.1 See_Comment [Aut omated message] The = Bili Direct) system which generated this result tra nsmitted reference range : <=0.3. The reference r nilam was not used to int erpret this result as abiodun l/abnormal. [facility]2018-08-03 01:51:00 Test Item Value Reference Range Interpretation Comments Alk Phos (test code = Alk Phos) 86 39-136 [facility]2018-08-03 01:51:00 Test Item Value Reference Range Interpretation Comments Bili Total (test code = Bili Total) 0.6 0.2-1.3 [place] 188938-08-03 01:51:00 Test Item Value Reference Range Interpretation Comments Bili Indirect (test 0.5 See_Comment [Automa kuldip message] The code = Bili Indirect) system which generated this result tra nsmitted reference range : <=1.0. The reference r nilam was not used to int erpret this result as normal/abnormal . [facility]2018-08-03 01:51:00 Test Item Value Reference Range Interpretation Comments Globulin (test code = Globulin) 4.7 2.7-4.2 [place] 188938-08-03 01:51:00 Test Item Value Reference Range Interpretation Comments A/G Ratio (test code = A/G Ratio) 0.8 1 0.7-1.6 [place] 188938-08-03 01:51:00 Test Item Value Reference Range Interpretation Comments eGFR (test code = eGFR) 124 [facility]2018-08-03 01:51:00 Test Item Value Reference Range Interpretation Comments Creatinine Lvl (test code = Creatinine 0.70 0.50-1.40 Lvl) [facility]2018-08-03 01:51:00 Test Item Value Reference Range Interpretation Comments Sodium Lvl (test code = Sodium Lvl) 134 135-145 [facility]2018-08-03 01:51:00 Test Item Value Reference Range Interpretation Comments Potassium Lvl (test code = Potassium 3.6 3.5-5.1 Lvl) [facility]2018-08-03 01:51:00 Test Item Value Reference Range Interpretation Comments CO2 (test code = CO2) 25 24-32 [facility]2018-08-03 01:51:00 Test Item Value Reference Range Interpretation Comments Chloride Lvl (test code = Chloride Lvl) 103 95-109 [facility]2018-08-03 01:51:00 Test Item Value Reference Range Interpretation Comments Calcium Lvl (test code = Calcium Lvl) 10.3 8.5-10.5 [facility]2018-08-03 01:51:00 Test Item Value Reference Range Interpretation Comments Glucose Lvl (test code = Glucose Lvl) 93 70-99 [facility]2018-08-03 01:51:00 Test Item Value Reference Range Interpretation Comments BUN (test code = BUN) 8 7-22 [facility]2018-08-03 01:51:00 Test Item Value Reference Range Interpretation Comments AGAP (test code = AGAP) 9.6 10.0-20.0 [facility] CenterZijszlpJHGKKVBESD5716-02-33 01:51:00 Test Item Value Reference Range Interpretation Comments Basophils # (test code 0.0 See_Comment [Aut omated message] The = Basophils #) system which generated this result tra nsmitted reference range : <=0.2. The reference r nilam was not used to int erpret this result as normal/abnormal . [facility] CenterNenxgvpDRDAEQYBHG2194-93-91 01:51:00 Test Item Value Reference Range Interpretation Comments Lymphocytes # (test code = Lymphocytes 2.4 1.0-5.5 #) [facility] CenterAjvolvaQBBURZUKUR7452-52-59 01:51:00 Test Item Value Reference Range Interpretation Comments Monocytes # (test code 0.6 See_Comment [Aut omated message] The = Monocytes #) system which generated this result tra nsmitted reference range : <=0.8. The reference r nilam was not used to int erpret this result as normal/abnormal . [facility] CenterWwcbsdnUJTGMPEEPM8253-18-18 01:51:00 Test Item Value Reference Range Interpretation Comments Eosinophils # (test code 0.1 See_Comment [A utomated message] The = Eosinophils #) system whic h generated this result tra nsmitted reference range : <=0.5. The reference r nilam was not used to int erpret this result as normal/abnormal . [facility] CenterPrbglteIAIVUWFKXL6907-72-98 01:51:00 Test Item Value Reference Range Interpretation Comments Eosinophils (test code = 2.1 See_Comment [A utomated message] The Eosinophils) system which ge nerated this result tra nsmitted reference range : <=4.0. The reference r nilam was not used to int erpret this result as normal/abnormal . [facility] CenterFyythwaMEGMOUMHIJ8775-68-33 01:51:00 Test Item Value Reference Range Interpretation Comments Basophils (test code = 0.4 See_Comment [Aut omated message] The Basophils) system which ge nerated this result tra nsmitted reference range : <=1.0. The reference r nilam was not used to int erpret this result as normal/abnormal . [facility] CenterHvrmcpvLOIXAUSURG0894-51-85 01:51:00 Test Item Value Reference Range Interpretation Comments Neutrophils # (test code = Neutrophils 3.7 1.5-8.1 #) [facility] CenterFwrxczpKFZIXZTNOX1280-02-33 01:51:00 Test Item Value Reference Range Interpretation Comments Lymphocytes (test code = Lymphocytes) 35.4 20.0-40.0 [facility] CenterNxzdlhrAUTZKFPDHZ7983-76-02 01:51:00 Test Item Value Reference Range Interpretation Comments Monocytes (test code = Monocytes) 8.2 2.0-12.0 [facility] CenterRdtsjodGAAIHSCGZH4865-69-01 01:51:00 Test Item Value Reference Range Interpretation Comments Segs (test code = Segs) 53.9 45.0-75.0 [facility] CenterZpqczpkVOJANIOTFR2148-75-44 01:51:00 Test Item Value Reference Range Interpretation Comments MPV (test code = MPV) 7.8 7.4-10.4 [facility] CenterGjyoyosKULKBVSNEJ2327-23-62 01:51:00 Test Item Value Reference Range Interpretation Comments Platelet (test code = Platelet) 251 133-450 [facility] CenterEcfosrfUSUPJQGOQI9362-05-59 01:51:00 Test Item Value Reference Range Interpretation Comments RDW (test code = RDW) 13.4 11.5-14.5 [facility] CenterNmllbohPHDTQTFLQK4094-24-36 01:51:00 Test Item Value Reference Range Interpretation Comments MCHC (test code = MCHC) 34.1 32.0-36.0 [facility] CenterLrcthbcCCFZPYCPDP9874-79-67 01:51:00 Test Item Value Reference Range Interpretation Comments MCH (test code = MCH) 30.7 pg 27.0-31.0 [facility] CenterEyghvdsRMNVKCFXDJ8488-41-73 01:51:00 Test Item Value Reference Range Interpretation Comments MCV (test code = MCV) 90.0 80.0-98.0 [facility] CenterCbxrtavHNJPPDVVJV7865-24-50 01:51:00 Test Item Value Reference Range Interpretation Comments Hct (test code = Hct) 40.4 36.0-48.0 [facility] CenterSdcloluDIFZNQFONY2914-12-07 01:51:00 Test Item Value Reference Range Interpretation Comments Hgb (test code = Hgb) 13.8 12.0-16.0 [facility] CenterTprzjzsYIOJSIPWXC0830-09-96 01:51:00 Test Item Value Reference Range Interpretation Comments RBC (test code = RBC) 4.49 4.20-5.40 [facility]GlhiiagJCSKODNZTQ5561-08-91 01:51:00 Test Item Value Reference Range Interpretation Comments WBC (test code = WBC) 6.9 3.7-10.4 [facility] CMJRGBD2822-67-19 01:51:00 Test Item Value Reference Range Interpretation Comments Total CK (test code = Total CK) 121 12-191 [facility] [id number] 01:51:00 Test Item Value Reference Range Interpretation Comments Troponin-I (test code no gt See_Comment [Auto mated message] The = Troponin-I) system which g enerated this result transmit kuldip reference range : <=0.40. The reference r nilam was not used to interpr et this result as abiodun l/abnormal. [facility] HospitalResource DataCARNativeADAC YIQPPKP1063-19-27 01:51:00 Test Item Value Reference Range Interpretation Comments CK MB (test code = CK MB) no gt 0.5-3.6 [facility] PointeCARNativeADAC ZDSHRWV3397-21-18 01:51:00 Test Item Value Reference Range Interpretation Comments CK MB Index (test no gt See_Comment [Automate d message] The code = CK MB Index) system w [facility] generated this result transmit kuldip reference range : <=2.5. The reference range was not used to interpr et this result as abiodun l/abnormal. [facility] [place] [id number] 01:51:00 Test Item Value Reference Range Interpretation Comments Lipase Lvl (test code = Lipase Lvl) 217 73-393 [facility] [place] [id number] 01:51:00 Test Item Value Reference Range Interpretation Comments Total Protein (test code = Total 8.4 6.4-8.4 Protein) [facility] [place] [id number] 01:51:00 Test Item Value Reference Range Interpretation Comments Albumin Lvl (test code = Albumin Lvl) 3.7 3.5-5.0 [facility] [place] [id number] 01:51:00 Test Item Value Reference Range Interpretation Comments ALT (test code = ALT) 24 See_Comment [Auto mated message] The system which ge nerated this result transmit kuldip reference range : <=65. The reference range was not used to interpr et this result as abiodun l/abnormal. [facility] [place] [id number] 01:51:00 Test Item Value Reference Range Interpretation Comments AST (test code = AST) 18 See_Comment [Auto mated message] The system which ge nerated this result transmit kuldip reference range : <=37. The reference range was not used to interpr et this result as abiodun l/abnormal. [facility] [employer] [id number] 01:51:00 Test Item Value Reference Range Interpretation Comments Bili Direct (test code 0.1 See_Comment [Aut omated message] The = Bili Direct) system which generated this result tra nsmitted reference range : <=0.3. The reference r nilam was not used to int erpret this result as abiodun l/abnormal. [facility]2018-08-03 01:51:00 Test Item Value Reference Range Interpretation Comments Alk Phos (test code = Alk Phos) 86 39-136 [facility]2018-08-03 01:51:00 Test Item Value Reference Range Interpretation Comments Bili Total (test code = Bili Total) 0.6 0.2-1.3 [facility]2018-08-03 01:51:00 Test Item Value Reference Range Interpretation Comments Bili Indirect (test 0.5 See_Comment [Automa kuldip message] The code = Bili Indirect) system which generated this result tra nsmitted reference range : <=1.0. The reference r inlam was not used to int erpret this result as normal/abnormal . [facility]2018-08-03 01:51:00 Test Item Value Reference Range Interpretation Comments Globulin (test code = Globulin) 4.7 2.7-4.2 [facility]2018-08-03 01:51:00 Test Item Value Reference Range Interpretation Comments A/G Ratio (test code = A/G Ratio) 0.8 1 0.7-1.6 [facility]2018-08-03 01:51:00 Test Item Value Reference Range Interpretation Comments eGFR (test code = eGFR) 124 [facility]2018-08-03 01:51:00 Test Item Value Reference Range Interpretation Comments Creatinine Lvl (test code = Creatinine 0.70 0.50-1.40 Lvl) [facility]2018-08-03 01:51:00 Test Item Value Reference Range Interpretation Comments Sodium Lvl (test code = Sodium Lvl) 134 135-145 [facility]2018-08-03 01:51:00 Test Item Value Reference Range Interpretation Comments Potassium Lvl (test code = Potassium 3.6 3.5-5.1 Lvl) [facility]2018-08-03 01:51:00 Test Item Value Reference Range Interpretation Comments CO2 (test code = CO2) 25 24-32 [place] 188938-08-03 01:51:00 Test Item Value Reference Range Interpretation Comments Chloride Lvl (test code = Chloride Lvl) 103 95-109 [facility]2018-08-03 01:51:00 Test Item Value Reference Range Interpretation Comments Calcium Lvl (test code = Calcium Lvl) 10.3 8.5-10.5 [facility]2018-08-03 01:51:00 Test Item Value Reference Range Interpretation Comments Glucose Lvl (test code = Glucose Lvl) 93 70-99 [facility]2018-08-03 01:51:00 Test Item Value Reference Range Interpretation Comments BUN (test code = BUN) 8 7-22 [facility]2018-08-03 01:51:00 Test Item Value Reference Range Interpretation Comments AGAP (test code = AGAP) 9.6 10.0-20.0 [facility]fe[facility]TTSTDXHEI6558[facility]54-[facility] 01:51:00 Test Item Value Reference Range Interpretation Comments Basophils # (test code 0.0 See_Comment [Aut omated message] The = Basophils #) system which generated this result tra nsmitted reference range : <=0.2. The reference r nilam was not used to int erpret this result as normal/abnormal . [facility]EujsqkgWZRESZDSSQ1830-48-03 01:51:00 Test Item Value Reference Range Interpretation Comments Lymphocytes # (test code = Lymphocytes 2.4 1.0-5.5 #) [facility] CenterSwfdzerAIVAKVJWCH5082-00-42 01:51:00 Test Item Value Reference Range Interpretation Comments Monocytes # (test code 0.6 See_Comment [Aut omated message] The = Monocytes #) system which generated this result tra nsmitted reference range : <=0.8. The reference r nilam was not used to int erpret this result as normal/abnormal . [facility] CenterDnljrvdVKCOCHIQUF3094-70-63 01:51:00 Test Item Value Reference Range Interpretation Comments Eosinophils # (test code 0.1 See_Comment [A utomated message] The = Eosinophils #) system whic h generated this result tra nsmitted reference range : <=0.5. The reference r nilam was not used to int erpret this result as normal/abnormal . [facility] CenterXzylzheBJWTGCSKLU6446-81-91 01:51:00 Test Item Value Reference Range Interpretation Comments Eosinophils (test code = 2.1 See_Comment [A utomated message] The Eosinophils) system which ge nerated this result tra nsmitted reference range : <=4.0. The reference r nilam was not used to int erpret this result as normal/abnormal . [facility] CenterXhzfheaHNWZCYLFPW5918-73-42 01:51:00 Test Item Value Reference Range Interpretation Comments Basophils (test code = 0.4 See_Comment [Aut omated message] The Basophils) system which ge nerated this result tra nsmitted reference range : <=1.0. The reference r nilam was not used to int erpret this result as normal/abnormal . [facility] CenterIaefspkKRREKFUVJV2708-81-49 01:51:00 Test Item Value Reference Range Interpretation Comments Neutrophils # (test code = Neutrophils 3.7 1.5-8.1 #) [facility] CenterKhsruquVPDQOVHXDS4190-24-82 01:51:00 Test Item Value Reference Range Interpretation Comments Lymphocytes (test code = Lymphocytes) 35.4 20.0-40.0 [facility] CenterBfywshaYIOPTCMZUR3323-83-96 01:51:00 Test Item Value Reference Range Interpretation Comments Monocytes (test code = Monocytes) 8.2 2.0-12.0 [facility] CenterXjiirtxVBOSYGYLPC3060-73-69 01:51:00 Test Item Value Reference Range Interpretation Comments Segs (test code = Segs) 53.9 45.0-75.0 [facility] CenterUqgxekbFSLCOGGGIC9616-27-78 01:51:00 Test Item Value Reference Range Interpretation Comments MPV (test code = MPV) 7.8 7.4-10.4 [facility] CenterCsredfcAZLDRJYIEA3647-46-47 01:51:00 Test Item Value Reference Range Interpretation Comments Platelet (test code = Platelet) 251 133-450 [facility] CenterZispwdrIOVYSYWYED0711-34-46 01:51:00 Test Item Value Reference Range Interpretation Comments RDW (test code = RDW) 13.4 11.5-14.5 [facility] CenterMtcfdrfJAKUODSWYB3691-77-41 01:51:00 Test Item Value Reference Range Interpretation Comments MCHC (test code = MCHC) 34.1 32.0-36.0 [facility] CenterUbsidyyZQHPMCQCGR7306-59-65 01:51:00 Test Item Value Reference Range Interpretation Comments MCH (test code = MCH) 30.7 pg 27.0-31.0 [facility] CenterXjosibjAESFEAAODX1793-26-44 01:51:00 Test Item Value Reference Range Interpretation Comments MCV (test code = MCV) 90.0 80.0-98.0 [facility] CenterOnwprbcZGKJXMDKCL5123-13-55 01:51:00 Test Item Value Reference Range Interpretation Comments Hct (test code = Hct) 40.4 36.0-48.0 [facility]XwaxpneEIICVKXPGR1619-35-72 01:51:00 Test Item Value Reference Range Interpretation Comments Hgb (test code = Hgb) 13.8 12.0-16.0 [facility]VbtxhkaMUDOTFFRWI0738-20-12 01:51:00 Test Item Value Reference Range Interpretation Comments RBC (test code = RBC) 4.49 4.20-5.40 [facility] HospitalBdpgbpaUMCSOWWJPJ0017-68-86 01:51:00 Test Item Value Reference Range Interpretation Comments WBC (test code = WBC) 6.9 3.7-10.4 [facility] 01:51:00 Test Item Value Reference Range Interpretation Comments Total CK (test code = Total CK) 121 12-191 [facility]inteHealint TNEYSBR9375-15-38 01:51:00 Test Item Value Reference Range Interpretation Comments Troponin-I (test code no gt See_Comment [Auto mated message] The = Troponin-I) system which g enerated this result transmit kuldip reference range : <=0.40. The reference r nilam was not used to interpr et this result as abiodun l/abnormal. [facility] 01:51:00 Test Item Value Reference Range Interpretation Comments CK MB (test code = CK MB) no gt 0.5-3.6 [facility]03 01:51:00 Test Item Value Reference Range Interpretation Comments CK MB Index (test no gt See_Comment [Automate d message] The code = CK MB Index) system w [facility] generated this result transmit kuldip reference range : <=2.5. The reference range was not used to interpr et this result as abiodun l/abnormal. [facility] [address]2018-08-03 01:51:00 Test Item Value Reference Range Interpretation Comments Lipase Lvl (test code = Lipase Lvl) 217 73-393 [facility] [address]2018-08-03 01:51:00 Test Item Value Reference Range Interpretation Comments Total Protein (test code = Total 8.4 6.4-8.4 Protein) [facility] [address]2018-08-03 01:51:00 Test Item Value Reference Range Interpretation Comments Albumin Lvl (test code = Albumin Lvl) 3.7 3.5-5.0 [facility]2018-08-03 01:51:00 Test Item Value Reference Range Interpretation Comments ALT (test code = ALT) 24 See_Comment [Auto mated message] The system which ge nerated this result transmit kuldip reference range : <=65. The reference range was not used to interpr et this result as abiodun l/abnormal. [place] 188938-08-03 01:51:00 Test Item Value Reference Range Interpretation Comments AST (test code = AST) 18 See_Comment [Auto mated message] The system which ge nerated this result transmit kuldip reference range : <=37. The reference range was not used to interpr et this result as abiodun l/abnormal. [place] [address]-08-03 01:51:00 Test Item Value Reference Range Interpretation Comments Bili Direct (test code 0.1 See_Comment [Aut omated message] The = Bili Direct) system which generated this result tra nsmitted reference range : <=0.3. The reference r nilam was not used to int erpret this result as abiodun l/abnormal. [facility]2018-08-03 01:51:00 Test Item Value Reference Range Interpretation Comments Alk Phos (test code = Alk Phos) 86 39-136 [place] 188938-08-03 01:51:00 Test Item Value Reference Range Interpretation Comments Bili Total (test code = Bili Total) 0.6 0.2-1.3 [place] [address]-08-03 01:51:00 Test Item Value Reference Range Interpretation Comments Bili Indirect (test 0.5 See_Comment [Automa kuldip message] The code = Bili Indirect) system which generated this result tra nsmitted reference range : <=1.0. The reference r nilam was not used to int erpret this result as normal/abnormal . [facility]2018-08-03 01:51:00 Test Item Value Reference Range Interpretation Comments Globulin (test code = Globulin) 4.7 2.7-4.2 [place] 188938-08-03 01:51:00 Test Item Value Reference Range Interpretation Comments A/G Ratio (test code = A/G Ratio) 0.8 1 0.7-1.6 [facility]2018-08-03 01:51:00 Test Item Value Reference Range Interpretation Comments eGFR (test code = eGFR) 124 [facility]2018-08-03 01:51:00 Test Item Value Reference Range Interpretation Comments Creatinine Lvl (test code = Creatinine 0.70 0.50-1.40 Lvl) [facility]2018-08-03 01:51:00 Test Item Value Reference Range Interpretation Comments Sodium Lvl (test code = Sodium Lvl) 134 135-145 [place] 188938-08-03 01:51:00 Test Item Value Reference Range Interpretation Comments Potassium Lvl (test code = Potassium 3.6 3.5-5.1 Lvl) [facility]2018-08-03 01:51:00 Test Item Value Reference Range Interpretation Comments CO2 (test code = CO2) 25 24-32 [facility]2018-08-03 01:51:00 Test Item Value Reference Range Interpretation Comments Chloride Lvl (test code = Chloride Lvl) 103 95-109 [place] 188938-08-03 01:51:00 Test Item Value Reference Range Interpretation Comments Calcium Lvl (test code = Calcium Lvl) 10.3 8.5-10.5 [facility]2018-08-03 01:51:00 Test Item Value Reference Range Interpretation Comments Glucose Lvl (test code = Glucose Lvl) 93 70-99 [facility]2018-08-03 01:51:00 Test Item Value Reference Range Interpretation Comments BUN (test code = BUN) 8 7-22 [facility]2018-08-03 01:51:00 Test Item Value Reference Range Interpretation Comments AGAP (test code = AGAP) 9.6 10.0-20.0 [facility] CenterGledrrhNUBPOMUWNH1868-54-79 01:51:00 Test Item Value Reference Range Interpretation Comments Basophils # (test code 0.0 See_Comment [Aut omated message] The = Basophils #) system which generated this result tra nsmitted reference range : <=0.2. The reference r nilam was not used to int erpret this result as normal/abnormal . [facility] CenterTfggwkmFYVJPYVZHH7010-28-72 01:51:00 Test Item Value Reference Range Interpretation Comments Lymphocytes # (test code = Lymphocytes 2.4 1.0-5.5 #) [facility] CenterHdpgegdFMPEVWDWWL8319-72-60 01:51:00 Test Item Value Reference Range Interpretation Comments Monocytes # (test code 0.6 See_Comment [Aut omated message] The = Monocytes #) system which generated this result tra nsmitted reference range : <=0.8. The reference r nilam was not used to int erpret this result as normal/abnormal . [facility] CenterVphxcpgNGMQMLKWZY9562-54-46 01:51:00 Test Item Value Reference Range Interpretation Comments Eosinophils # (test code 0.1 See_Comment [A utomated message] The = Eosinophils #) system whic h generated this result tra nsmitted reference range : <=0.5. The reference r nilam was not used to int erpret this result as normal/abnormal . [facility] CenterGprlpeqPDKTWIQYXA6874-47-29 01:51:00 Test Item Value Reference Range Interpretation Comments Eosinophils (test code = 2.1 See_Comment [A utomated message] The Eosinophils) system which ge nerated this result tra nsmitted reference range : <=4.0. The reference r nilam was not used to int erpret this result as normal/abnormal . [facility] CenterWphtnkeQBXMOIWFPU4845-22-80 01:51:00 Test Item Value Reference Range Interpretation Comments Basophils (test code = 0.4 See_Comment [Aut omated message] The Basophils) system which ge nerated this result tra nsmitted reference range : <=1.0. The reference r nilam was not used to int erpret this result as normal/abnormal . [facility] CenterJontbdnISFMHTKTKR9249-90-13 01:51:00 Test Item Value Reference Range Interpretation Comments Neutrophils # (test code = Neutrophils 3.7 1.5-8.1 #) [facility] CenterLskrkebFZAVRKTDCQ4491-26-42 01:51:00 Test Item Value Reference Range Interpretation Comments Lymphocytes (test code = Lymphocytes) 35.4 20.0-40.0 [facility] CenterIutrwsvAYOGIFSVFV9507-59-78 01:51:00 Test Item Value Reference Range Interpretation Comments Monocytes (test code = Monocytes) 8.2 2.0-12.0 [facility] CenterPefwohtKNNKCHCVQR2928-80-54 01:51:00 Test Item Value Reference Range Interpretation Comments Segs (test code = Segs) 53.9 45.0-75.0 [facility]ox[facility]egYUTDMJWIJX8064-[facility]-77 01:51:00 Test Item Value Reference Range Interpretation Comments MPV (test code = MPV) 7.8 7.4-10.4 [facility] HospitalLpkoozeULIFLZJSBJ9398-03-43 01:51:00 Test Item Value Reference Range Interpretation Comments Platelet (test code = Platelet) 251 133-450 [facility] HospitalXtarxioTLJMIYSPMV5704-70-32 01:51:00 Test Item Value Reference Range Interpretation Comments RDW (test code = RDW) 13.4 11.5-14.5 [facility] HospitalXwynkhzNKJLANLMFJ5736-16-79 01:51:00 Test Item Value Reference Range Interpretation Comments MCHC (test code = MCHC) 34.1 32.0-36.0 [facility] HospitalUwllnnmJGYDDMCKXG3591-22-23 01:51:00 Test Item Value Reference Range Interpretation Comments MCH (test code = MCH) 30.7 pg 27.0-31.0 [facility] HospitalEqqtevhPWRNWSFFVW1762-08-07 01:51:00 Test Item Value Reference Range Interpretation Comments MCV (test code = MCV) 90.0 80.0-98.0 [facility]inteVeglkuaOKDROSDQQG7734-04-86 01:51:00 Test Item Value Reference Range Interpretation Comments Hct (test code = Hct) 40.4 36.0-48.0 [facility] HospitalTcjjzmkMKVUSFTTRS2931-72-25 01:51:00 Test Item Value Reference Range Interpretation Comments Hgb (test code = Hgb) 13.8 12.0-16.0 [facility] HospitalHismgnnHUOUSQKGLJ0043-71-55 01:51:00 Test Item Value Reference Range Interpretation Comments RBC (test code = RBC) 4.49 4.20-5.40 [facility] PointeKidgarfESNAKDHVPS6450-11-30 01:51:00 Test Item Value Reference Range Interpretation Comments WBC (test code = WBC) 6.9 3.7-10.4 [facility] W/AUTO [id number] 00:00:00 Test Item Value Reference Range Interpretation [...] code = 1015) 247 K/UL CBC W/AUTO [id number] 00:00:00 Test Item Value Reference Range Interpretation [...] (test code = 1015) 247 K/UL HEMOGLOBIN [id number] 00:00:00 Test Item Value Reference Range Interpretation Comments HEMOGLOBIN A1c (test code = 86998) 5.3 % HEMOGLOBIN [id number] 00:00:00 Test Item Value Reference Range Interpretation Comments HEMOGLOBIN A1c (test code = 26174) 5.3 % LIPID [id number] 00:00:00 Test Item Value Reference Range Interpretation Comments CHOLESTEROL (test code = 2210) 226 MG/DL TRIGLYCERIDES (test code = 2232) 169 MG/DL HDL CHOLESTEROL (test code = 2220) 60 MG/DL CALC LDL CHOL (test code = 2237) 132 MG/DL RISK RATIO LDL/HDL (test code = 2.20 RATIO 2238) BASIC METABOLIC [id number] 00:00:00 Test Item Value Reference Range Interpretation Comments GLUCOSE (test code = 2217) 89 MG/DL BUN (test code = 2208) 7 MG/DL CREATININE (test code = 2214) 0.70 MG/DL eGFR AMER. (test code 124 ML/MIN/1.73 = 26947) eGFR NON- AMER. (test 107 ML/MIN/1.73 code = 66484) SODIUM (test code = 2231) 140 MEQ/L POTASSIUM (test code = 2228) 4.3 MEQ/L CHLORIDE (test code = 2215) 99 MEQ/L CARBON DIOXIDE (test code = 26 MEQ/L 2206) CALCIUM (test code = 2209) 11.1 MG/DL CBC W/AUTO [id number] 00:00:00 Test Item Value Reference Range Interpretation [...] COUNT (test code = 1015) 247 K/UL [id number] 00:00:00 Test Item Value Reference Range Interpretation Comments TSH, THIRD GENERATION (test code 1.020 UIU/ML = 2821) [id number] 00:00:00 Test Item Value Reference Range Interpretation Comments TSH, THIRD GENERATION (test code 1.020 UIU/ML = 2821) CBC W/AUTO [id number] 00:00:00 Test Item Value Reference Range Interpretation [...] code = 1015) 247 K/UL CBC W/AUTO [id number] 00:00:00 Test Item Value Reference Range Interpretation [...] code = 1015) 247 K/UL CBC W/AUTO [id number] 00:00:00 Test Item Value Reference Range Interpretation [...] (test code = 1015) 247 K/UL HEMOGLOBIN [id number] 00:00:00 Test Item Value Reference Range Interpretation Comments HEMOGLOBIN A1c (test code = 24377) 5.3 % HEMOGLOBIN [id number] 00:00:00 Test Item Value Reference Range Interpretation Comments HEMOGLOBIN A1c (test code = 44241) 5.3 % LIPID [id number] 00:00:00 Test Item Value Reference Range Interpretation Comments CHOLESTEROL (test code = 2210) 226 MG/DL TRIGLYCERIDES (test code = 2232) 169 MG/DL HDL CHOLESTEROL (test code = 2220) 60 MG/DL CALC LDL CHOL (test code = 2237) 132 MG/DL RISK RATIO LDL/HDL (test code = 2.20 RATIO 2238) BASIC METABOLIC [id number] 00:00:00 Test Item Value Reference Range Interpretation Comments GLUCOSE (test code = 2217) 89 MG/DL BUN (test code = 2208) 7 MG/DL CREATININE (test code = 2214) 0.70 MG/DL eGFR AMER. (test code 124 ML/MIN/1.73 = 19348) eGFR NON- AMER. (test 107 ML/MIN/1.73 code = 19935) SODIUM (test code = 2231) 140 MEQ/L POTASSIUM (test code = 2228) 4.3 MEQ/L CHLORIDE (test code = 2215) 99 MEQ/L CARBON DIOXIDE (test code = 26 MEQ/L 2206) CALCIUM (test code = 2209) 11.1 MG/DL [id number] 00:00:00 Test Item Value Reference Range Interpretation Comments TSH, THIRD GENERATION (test code 1.020 UIU/ML = 2821) [id number] 00:00:00 Test Item Value Reference Range Interpretation Comments TSH, THIRD GENERATION (test code 1.020 UIU/ML = 2821) HEMOGLOBIN [id number] 00:00:00 Test Item Value Reference Range Interpretation Comments HEMOGLOBIN A1c (test code = 04867) 5.3 % CBC W/AUTO [id number] 00:00:00 Test Item Value Reference Range Interpretation [...] code = 1015) 247 K/UL CBC W/AUTO [id number] 00:00:00 Test Item Value Reference Range Interpretation [...] (test code = 1015) 247 K/UL HEMOGLOBIN [id number] 00:00:00 Test Item Value Reference Range Interpretation Comments HEMOGLOBIN A1c (test code = 07668) 5.3 % CBC W/AUTO [id number] 00:00:00 Test Item Value Reference Range Interpretation [...] (test code = 1015) 247 K/UL HEMOGLOBIN [id number] 00:00:00 Test Item Value Reference Range Interpretation Comments HEMOGLOBIN A1c (test code = 81163) 5.3 % HEMOGLOBIN [id number] 00:00:00 Test Item Value Reference Range Interpretation Comments HEMOGLOBIN A1c (test code = 08826) 5.3 % HEMOGLOBIN [id number] 00:00:00 Test Item Value Reference Range Interpretation Comments HEMOGLOBIN A1c (test code = 64387) 5.3 % LIPID [id number] 00:00:00 Test Item Value Reference Range Interpretation Comments CHOLESTEROL (test code = 2210) 226 MG/DL TRIGLYCERIDES (test code = 2232) 169 MG/DL HDL CHOLESTEROL (test code = 2220) 60 MG/DL CALC LDL CHOL (test code = 2237) 132 MG/DL RISK RATIO LDL/HDL (test code = 2.20 RATIO 2238) LIPID [id number] 00:00:00 Test Item Value Reference Range Interpretation Comments CHOLESTEROL (test code = 2210) 226 MG/DL TRIGLYCERIDES (test code = 2232) 169 MG/DL HDL CHOLESTEROL (test code = 2220) 60 MG/DL CALC LDL CHOL (test code = 2237) 132 MG/DL RISK RATIO LDL/HDL (test code = 2.20 RATIO 2238) LIPID [id number] 00:00:00 Test Item Value Reference Range Interpretation Comments CHOLESTEROL (test code = 2210) 226 MG/DL TRIGLYCERIDES (test code = 2232) 169 MG/DL HDL CHOLESTEROL (test code = 2220) 60 MG/DL CALC LDL CHOL (test code = 2237) 132 MG/DL RISK RATIO LDL/HDL (test code = 2.20 RATIO 2238) BASIC METABOLIC [id number] 00:00:00 Test Item Value Reference Range Interpretation Comments GLUCOSE (test code = 2217) 89 MG/DL BUN (test code = 2208) 7 MG/DL CREATININE (test code = 2214) 0.70 MG/DL eGFR AMER. (test code 124 ML/MIN/1.73 = 49708) eGFR NON- AMER. (test 107 ML/MIN/1.73 code = 74672) SODIUM (test code = 2231) 140 MEQ/L POTASSIUM (test code = 2228) 4.3 MEQ/L CHLORIDE (test code = 2215) 99 MEQ/L CARBON DIOXIDE (test code = 26 MEQ/L 2206) CALCIUM (test code = 2209) 11.1 MG/DL BASIC METABOLIC [id number] 00:00:00 Test Item Value Reference Range Interpretation Comments GLUCOSE (test code = 2217) 89 MG/DL BUN (test code = 2208) 7 MG/DL CREATININE (test code = 2214) 0.70 MG/DL eGFR AMER. (test code 124 ML/MIN/1.73 = 87945) eGFR NON- AMER. (test 107 ML/MIN/1.73 code = 97054) SODIUM (test code = 2231) 140 MEQ/L POTASSIUM (test code = 2228) 4.3 MEQ/L CHLORIDE (test code = 2215) 99 MEQ/L CARBON DIOXIDE (test code = 26 MEQ/L 2206) CALCIUM (test code = 2209) 11.1 MG/DL [id number] 00:00:00 Test Item Value Reference Range Interpretation Comments TSH, THIRD GENERATION (test code 1.020 UIU/ML = 2821) [id number] 00:00:00 Test Item Value Reference Range Interpretation Comments TSH, THIRD GENERATION (test code 1.020 UIU/ML = 2821) [id number] 00:00:00 Test Item Value Reference Range Interpretation Comments TSH, THIRD GENERATION (test code 1.020 UIU/ML = 2821) BASIC METABOLIC [id number] 00:00:00 Test Item Value Reference Range Interpretation Comments GLUCOSE (test code = 2217) 89 MG/DL BUN (test code = 2208) 7 MG/DL CREATININE (test code = 2214) 0.70 MG/DL eGFR AMER. (test code 124 ML/MIN/1.73 = 49374) eGFR NON- AMER. (test 107 ML/MIN/1.73 code = 38402) SODIUM (test code = 2231) 140 MEQ/L POTASSIUM (test code = 2228) 4.3 MEQ/L CHLORIDE (test code = 2215) 99 MEQ/L CARBON DIOXIDE (test code = 26 MEQ/L 2206) CALCIUM (test code = 2209) 11.1 MG/DL [id number] 00:00:00 Test Item Value Reference Range Interpretation Comments TSH, THIRD GENERATION (test code 1.020 UIU/ML = 2821) [id number] 00:00:00 Test Item Value Reference Range Interpretation Comments TSH, THIRD GENERATION (test code 1.020 UIU/ML = 2821) CBC W/AUTO [id number] 00:00:00 Test Item Value Reference Range Interpretation [...] code = 1015) 247 K/UL CBC W/AUTO [id number] 00:00:00 Test Item Value Reference Range Interpretation [...] code = 1015) 247 K/UL CBC W/AUTO [id number] 00:00:00 Test Item Value Reference Range Interpretation [...] (test code = 1015) 247 K/UL HEMOGLOBIN [id number] 00:00:00 Test Item Value Reference Range Interpretation Comments HEMOGLOBIN A1c (test code = 46109) 5.3 % HEMOGLOBIN [id number] 00:00:00 Test Item Value Reference Range Interpretation Comments HEMOGLOBIN A1c (test code = 08150) 5.3 % HEMOGLOBIN [id number] 00:00:00 Test Item Value Reference Range Interpretation Comments HEMOGLOBIN A1c (test code = 09569) 5.3 % LIPID [id number] 00:00:00 Test Item Value Reference Range Interpretation Comments CHOLESTEROL (test code = 2210) 226 MG/DL TRIGLYCERIDES (test code = 2232) 169 MG/DL HDL CHOLESTEROL (test code = 2220) 60 MG/DL CALC LDL CHOL (test code = 2237) 132 MG/DL RISK RATIO LDL/HDL (test code = 2.20 RATIO 2238) LIPID [id number] 00:00:00 Test Item Value Reference Range Interpretation Comments CHOLESTEROL (test code = 2210) 226 MG/DL TRIGLYCERIDES (test code = 2232) 169 MG/DL HDL CHOLESTEROL (test code = 2220) 60 MG/DL CALC LDL CHOL (test code = 2237) 132 MG/DL RISK RATIO LDL/HDL (test code = 2.20 RATIO 2238) BASIC METABOLIC [id number] 00:00:00 Test Item Value Reference Range Interpretation Comments GLUCOSE (test code = 2217) 89 MG/DL BUN (test code = 2208) 7 MG/DL CREATININE (test code = 2214) 0.70 MG/DL eGFR AMER. (test code 124 ML/MIN/1.73 = 54924) eGFR NON- AMER. (test 107 ML/MIN/1.73 code = 04386) SODIUM (test code = 2231) 140 MEQ/L POTASSIUM (test code = 2228) 4.3 MEQ/L CHLORIDE (test code = 2215) 99 MEQ/L CARBON DIOXIDE (test code = 26 MEQ/L 2206) CALCIUM (test code = 2209) 11.1 MG/DL BASIC METABOLIC [id number] 00:00:00 Test Item Value Reference Range Interpretation Comments GLUCOSE (test code = 2217) 89 MG/DL BUN (test code = 2208) 7 MG/DL CREATININE (test code = 2214) 0.70 MG/DL eGFR AMER. (test code 124 ML/MIN/1.73 = 84692) eGFR NON- AMER. (test 107 ML/MIN/1.73 code = 45812) SODIUM (test code = 2231) 140 MEQ/L POTASSIUM (test code = 2228) 4.3 MEQ/L CHLORIDE (test code = 2215) 99 MEQ/L CARBON DIOXIDE (test code = 26 MEQ/L 2206) CALCIUM (test code = 2209) 11.1 MG/DL [id number] 00:00:00 Test Item Value Reference Range Interpretation Comments TSH, THIRD GENERATION (test code 1.020 UIU/ML = 2821) [id number] 00:00:00 Test Item Value Reference Range Interpretation Comments TSH, THIRD GENERATION (test code 1.020 UIU/ML = 2821) [id number] 00:00:00 Test Item Value Reference Range Interpretation Comments TSH, THIRD GENERATION (test code 1.020 UIU/ML = 2821) CHEM [id number] 15:16:00 Test Item Value Reference Range Interpretation Comments eGFR (test code = eGFR) 101 [facility] [id number] 15:16:00 Test Item Value Reference Range Interpretation Comments Bili Total (test code = Bili Total) 0.4 0.2-1.3 [facility]2018-07-21 15:16:00 Test Item Value Reference Range Interpretation Comments Alk Phos (test code = Alk Phos) 83 39-136 [facility]2018-07-21 15:16:00 Test Item Value Reference Range Interpretation Comments AST (test code = AST) 14 See_Comment [Auto mated message] The system which ge nerated this result transmit kuldip reference range : <=37. The reference range was not used to interpr et this result as abiodun l/abnormal. [facility]2018-07-21 15:16:00 Test Item Value Reference Range Interpretation Comments ALT (test code = ALT) 22 See_Comment [Auto mated message] The system which ge nerated this result transmit kuldip reference range : <=65. The reference range was not used to interpr et this result as abiodun l/abnormal. [facility]2018-07-21 15:16:00 Test Item Value Reference Range Interpretation Comments Glucose Lvl (test code = Glucose Lvl) 125 70-99 [facility]2018-07-21 15:16:00 Test Item Value Reference Range Interpretation Comments A/G Ratio (test code = A/G Ratio) 0.8 1 0.7-1.6 [facility]2018-07-21 15:16:00 Test Item Value Reference Range Interpretation Comments Globulin (test code = Globulin) 4.5 2.7-4.2 [facility]2018-07-21 15:16:00 Test Item Value Reference Range Interpretation Comments B/C Ratio (test code = B/C Ratio) 8 1 6-25 [facility]2018-07-21 15:16:00 Test Item Value Reference Range Interpretation Comments Calcium Lvl (test code = Calcium Lvl) 10.2 8.5-10.5 [facility]2018-07-21 15:16:00 Test Item Value Reference Range Interpretation Comments Total Protein (test code = Total 7.9 6.4-8.4 Protein) [facility]2018-07-21 15:16:00 Test Item Value Reference Range Interpretation Comments Albumin Lvl (test code = Albumin Lvl) 3.4 3.5-5.0 [facility]2018-07-21 15:16:00 Test Item Value Reference Range Interpretation Comments Chloride Lvl (test code = Chloride Lvl) 102 95-109 [facility]2018-07-21 15:16:00 Test Item Value Reference Range Interpretation Comments CO2 (test code = CO2) 30 24-32 [facility]2018-07-21 15:16:00 Test Item Value Reference Range Interpretation Comments AGAP (test code = AGAP) 10.8 10.0-20.0 [facility]2018-07-21 15:16:00 Test Item Value Reference Range Interpretation Comments BUN (test code = BUN) 7 7- [facility]2018-07-21 15:16:00 Test Item Value Reference Range Interpretation Comments Sodium Lvl (test code = Sodium Lvl) 139 135-145 [facility]2018-07-21 15:16:00 Test Item Value Reference Range Interpretation Comments Potassium Lvl (test code = Potassium 3.8 3.5-5.1 Lvl) [facility]2018-07-21 15:16:00 Test Item Value Reference Range Interpretation Comments Creatinine Lvl (test code = Creatinine 0.83 0.50-1.40 Lvl) [facility]2018-07-21 15:16:00 Test Item Value Reference Range Interpretation Comments Lipase Lvl (test code = Lipase Lvl) 204 73-393 [place] [id number] 15:16:00 Test Item Value Reference Range Interpretation Comments S Preg (test code = S Negative *NA*(10/13/17 Preg) 10:16 AM) [id number] 15:16:00 Test Item Value Reference Range Interpretation Comments Monocytes (test code = Monocytes) 7.5 2.0-12.0 [facility] C[id number] 15:16:00 Test Item Value Reference Range Interpretation Comments Segs (test code = Segs) 64.6 45.0-75.0 [facility] Cent[id number] 15:16:00 Test Item Value Reference Range Interpretation Comments Lymphocytes (test code = Lymphocytes) 26.4 20.0-40.0 [facility] Cent[id number] 15:16:00 Test Item Value Reference Range Interpretation Comments Neutrophils # (test code = Neutrophils 4.8 1.5-8.1 #) [facility] CenterTskctsfBATPCWRPCX2144-11-61 15:16:00 Test Item Value Reference Range Interpretation Comments Basophils (test code = 0.4 See_Comment [Aut omated message] The Basophils) system which ge nerated this result tra nsmitted reference range : <=1.0. The reference r nilam was not used to int erpret this result as normal/abnormal . [facility] CenterAfavzmgPGDQBMWTUY4595-46-74 15:16:00 Test Item Value Reference Range Interpretation Comments Eosinophils (test code = 1.1 See_Comment [A utomated message] The Eosinophils) system which ge nerated this result tra nsmitted reference range : <=4.0. The reference r nilam was not used to int erpret this result as normal/abnormal . [facility] C[id number] 15:16:00 Test Item Value Reference Range Interpretation Comments Monocytes # (test code 0.6 See_Comment [Aut omated message] The = Monocytes #) system which generated this result tra nsmitted reference range : <=0.8. The reference r nilam was not used to int erpret this result as normal/abnormal . [facility] CenterDeudmknRLSRIMKBXD9887-97-41 15:16:00 Test Item Value Reference Range Interpretation Comments Lymphocytes # (test code = Lymphocytes 2.0 1.0-5.5 #) [facility] Cent[id number] 15:16:00 Test Item Value Reference Range Interpretation Comments Eosinophils # (test code 0.1 See_Comment [A utomated message] The = Eosinophils #) system whic h generated this result tra nsmitted reference range : <=0.5. The reference r nilam was not used to int erpret this result as normal/abnormal . [facility] Cent[id number] 15:16:00 Test Item Value Reference Range Interpretation Comments RDW (test code = RDW) 13.4 11.5-14.5 [facility] CenterXadfstoMFYBQNLPAL6520-20-98 15:16:00 Test Item Value Reference Range Interpretation Comments MCH (test code = MCH) 30.7 pg 27.0-31.0 [facility] CenterKxaipsuYNLWPBTQVY8459-10-24 15:16:00 Test Item Value Reference Range Interpretation Comments Platelet (test code = Platelet) 204 133-450 [facility] C[id number] 15:16:00 Test Item Value Reference Range Interpretation Comments MCHC (test code = MCHC) 34.7 32.0-36.0 [facility] CenterHlwgrmiBUNIBZBTKM2356-06-50 15:16:00 Test Item Value Reference Range Interpretation Comments MCV (test code = MCV) 88.5 80.0-98.0 [facility] CenterByrywalWMXOQSXGYG2466-69-37 15:16:00 Test Item Value Reference Range Interpretation Comments MPV (test code = MPV) 8.2 7.4-10.4 [facility] Cent[id number] 15:16:00 Test Item Value Reference Range Interpretation Comments Hct (test code = Hct) 38.7 36.0-48.0 [facility] CenterCrsbvrfDZTLMCUIBR7574-34-64 15:16:00 Test Item Value Reference Range Interpretation Comments Hgb (test code = Hgb) 13.4 12.0-16.0 [facility] CenterDzzvtfeDMHPYFVLAV6595-95-69 15:16:00 Test Item Value Reference Range Interpretation Comments RBC (test code = RBC) 4.37 4.20-5.40 [facility] CenterQheqtffBYVRZTXMBZ5105-56-19 15:16:00 Test Item Value Reference Range Interpretation Comments WBC (test code = WBC) 7.4 3.7-10.4 [facility]2018-07-21 15:16:00 Test Item Value Reference Range Interpretation Comments UA Urobilinogen (test code = UA <=1.0 mg/dL 0.1-1.0 Urobilinogen) [facility]2018-07-21 15:16:00 Test Item Value Reference Range Interpretation Comments UA Mucus (test code = UA Mucus) Few /LPF [facility]2018-07-21 15:16:00 Test Item Value Reference Range Interpretation Comments UA CaOx Judy (test code = UA CaOx Many /HPF Judy) [facility]2018-07-21 15:16:00 Test Item Value Reference Range Interpretation Comments UA RBC (test code = 3 See_Comment [Automa kuldip message] The UA RBC) system which ge nerated this result transmit kuldip reference range : <=2. The reference range was not used to interpr et this result as abiodun l/abnormal. [facility]2018-07-21 15:16:00 Test Item Value Reference Range Interpretation Comments UA WBC (test code = 2 See_Comment [Automa kuldip message] The UA WBC) system which ge nerated this result transmit kuldip reference range : <=5. The reference range was not used to interpr et this result as abiodun l/abnormal. [facility] AND [id number] 15:16:00 Test Item Value Reference Range Interpretation Comments UA Leuk Est (test Negative (10/13/17 10:16 code = UA Leuk Est) AM) [facility] AND [id number] 15:16:00 Test Item Value Reference Range Interpretation Comments UA Sq Epi (test code = UA Sq Epi) Few /LPF [facility] AND [id number] 15:16:00 Test Item Value Reference Range Interpretation Comments UA Bacteria (test code = UA Occasional /HPF Bacteria) [facility] AND [id number] 15:16:00 Test Item Value Reference Range Interpretation Comments UA Blood (test code = Negative (10/13/17 10:16 UA Blood) AM) [facility] AND [id number] 15:16:00 Test Item Value Reference Range Interpretation Comments UA Nitrite (test code Negative (10/13/17 10:16 = UA Nitrite) AM) [facility] AND [id number] 15:16:00 Test Item Value Reference Range Interpretation Comments UA pH (test code = UA pH) 6.0 1 5.0-8.0 [facility] AND [id number] 15:16:00 Test Item Value Reference Range Interpretation Comments UA Spec Grav (test code = UA Spec 1.008 1 Grav) [facility] AND [id number] 15:16:00 Test Item Value Reference Range Interpretation Comments UA Ketones (test code = UA Negative mg/dL Ketones) [facility] AND [id number] 15:16:00 Test Item Value Reference Range Interpretation Comments UA Bili (test code = Negative *NA*(10/13/17 UA Bili) 10:16 AM) [facility] AND [id number] 15:16:00 Test Item Value Reference Range Interpretation Comments UA Glucose (test code = UA Negative mg/dL Glucose) [facility] AND [id number] 15:16:00 Test Item Value Reference Range Interpretation Comments UA Color (test code = Yellow *NA*(10/13/17 UA Color) 10:16 AM) [facility] AND [id number] 15:16:00 Test Item Value Reference Range Interpretation Comments UA Turbidity (test code Slight *ABN*(10/13/17 = UA Turbidity) 10:16 AM) [facility] AND [id number] 15:16:00 Test Item Value Reference Range Interpretation Comments UA Protein (test code = UA Negative mg/dL Protein) [facility]2018-07-21 15:16:00 Test Item Value Reference Range Interpretation Comments eGFR (test code = eGFR) 101 [facility]2018-07-21 15:16:00 Test Item Value Reference Range Interpretation Comments Bili Total (test code = Bili Total) 0.4 0.2-1.3 [facility]2018-07-21 15:16:00 Test Item Value Reference Range Interpretation Comments Alk Phos (test code = Alk Phos) 83 39-136 [facility]2018-07-21 15:16:00 Test Item Value Reference Range Interpretation Comments AST (test code = AST) 14 See_Comment [Auto mated message] The system which ge nerated this result transmit kuldip reference range : <=37. The reference range was not used to interpr et this result as abiodun l/abnormal. [facility]2018-07-21 15:16:00 Test Item Value Reference Range Interpretation Comments ALT (test code = ALT) 22 See_Comment [Auto mated message] The system which ge nerated this result transmit kuldip reference range : <=65. The reference range was not used to interpr et this result as abiodun l/abnormal. [facility]2018-07-21 15:16:00 Test Item Value Reference Range Interpretation Comments Glucose Lvl (test code = Glucose Lvl) 125 70-99 [facility]2018-07-21 15:16:00 Test Item Value Reference Range Interpretation Comments A/G Ratio (test code = A/G Ratio) 0.8 1 0.7-1.6 [facility]2018-07-21 15:16:00 Test Item Value Reference Range Interpretation Comments Globulin (test code = Globulin) 4.5 2.7-4.2 [facility]2018-07-21 15:16:00 Test Item Value Reference Range Interpretation Comments B/C Ratio (test code = B/C Ratio) 8 1 6-25 [facility]2018-07-21 15:16:00 Test Item Value Reference Range Interpretation Comments Calcium Lvl (test code = Calcium Lvl) 10.2 8.5-10.5 [facility]2018-07-21 15:16:00 Test Item Value Reference Range Interpretation Comments Total Protein (test code = Total 7.9 6.4-8.4 Protein) [facility]2018-07-21 15:16:00 Test Item Value Reference Range Interpretation Comments Albumin Lvl (test code = Albumin Lvl) 3.4 3.5-5.0 [facility]2018-07-21 15:16:00 Test Item Value Reference Range Interpretation Comments Chloride Lvl (test code = Chloride Lvl) 102 95-109 [facility]2018-07-21 15:16:00 Test Item Value Reference Range Interpretation Comments CO2 (test code = CO2) 30 24-32 [facility]2018-07-21 15:16:00 Test Item Value Reference Range Interpretation Comments AGAP (test code = AGAP) 10.8 10.0-20.0 [facility]2018-07-21 15:16:00 Test Item Value Reference Range Interpretation Comments BUN (test code = BUN) 7 7-22 [facility]2018-07-21 15:16:00 Test Item Value Reference Range Interpretation Comments Sodium Lvl (test code = Sodium Lvl) 139 135-145 [facility]2018-07-21 15:16:00 Test Item Value Reference Range Interpretation Comments Potassium Lvl (test code = Potassium 3.8 3.5-5.1 Lvl) [facility]2018-07-21 15:16:00 Test Item Value Reference Range Interpretation Comments Creatinine Lvl (test code = Creatinine 0.83 0.50-1.40 Lvl) [facility]2018-07-21 15:16:00 Test Item Value Reference Range Interpretation Comments Lipase Lvl (test code = Lipase Lvl) 204 73-393 [place] 86754018-07-21 15:16:00 Test Item Value Reference Range Interpretation Comments S Preg (test code = S Negative *NA*(10/13/17 Preg) 10:16 AM) [facility] [id number] 15:16:00 Test Item Value Reference Range Interpretation Comments Monocytes (test code = Monocytes) 7.5 2.0-12.0 [facility] CenterRhmezvqXAKAQGGJNB8629-60-89 15:16:00 Test Item Value Reference Range Interpretation Comments Segs (test code = Segs) 64.6 45.0-75.0 [facility] CenterIscxvvzLLEITRCJAJ6261-03-33 15:16:00 Test Item Value Reference Range Interpretation Comments Lymphocytes (test code = Lymphocytes) 26.4 20.0-40.0 [facility] Cent[id number] 15:16:00 Test Item Value Reference Range Interpretation Comments Neutrophils # (test code = Neutrophils 4.8 1.5-8.1 #) [facility] C[id number] 15:16:00 Test Item Value Reference Range Interpretation Comments Basophils (test code = 0.4 See_Comment [Aut omated message] The Basophils) system which ge nerated this result tra nsmitted reference range : <=1.0. The reference r nilam was not used to int erpret this result as normal/abnormal . [facility] CenterCawkimzJWFRSFBIYX1953-07-67 15:16:00 Test Item Value Reference Range Interpretation Comments Eosinophils (test code = 1.1 See_Comment [A utomated message] The Eosinophils) system which ge nerated this result tra nsmitted reference range : <=4.0. The reference r nilam was not used to int erpret this result as normal/abnormal . [facility] CenterPusgmmlUAHRSGWDWC8402-64-66 15:16:00 Test Item Value Reference Range Interpretation Comments Monocytes # (test code 0.6 See_Comment [Aut omated message] The = Monocytes #) system which generated this result tra nsmitted reference range : <=0.8. The reference r nilam was not used to int erpret this result as normal/abnormal . [facility] CenterAaxstgfZXKTUTLFTG2821-64-77 15:16:00 Test Item Value Reference Range Interpretation Comments Lymphocytes # (test code = Lymphocytes 2.0 1.0-5.5 #) [facility] CenterJpxauflFMKOGZAOPU5044-08-27 15:16:00 Test Item Value Reference Range Interpretation Comments Eosinophils # (test code 0.1 See_Comment [A utomated message] The = Eosinophils #) system whic h generated this result tra nsmitted reference range : <=0.5. The reference r nilam was not used to int erpret this result as normal/abnormal . [facility] CenterNcseovpUJKSJTJMZV4409-02-37 15:16:00 Test Item Value Reference Range Interpretation Comments RDW (test code = RDW) 13.4 11.5-14.5 [facility] CenterSyphemgKUORSTKDVO0655-28-46 15:16:00 Test Item Value Reference Range Interpretation Comments MCH (test code = MCH) 30.7 pg 27.0-31.0 [facility] CenterNfswhqkRAZKHOPJYI0650-09-75 15:16:00 Test Item Value Reference Range Interpretation Comments Platelet (test code = Platelet) 204 133-450 [facility] CenterKbqomziNKOURMJPHM4553-42-90 15:16:00 Test Item Value Reference Range Interpretation Comments MCHC (test code = MCHC) 34.7 32.0-36.0 [facility] CenterFmjxqtdLUIVOCYEIV3216-13-13 15:16:00 Test Item Value Reference Range Interpretation Comments MCV (test code = MCV) 88.5 80.0-98.0 [facility] CenterRaheqhqNWXIHGWCTS8769-62-54 15:16:00 Test Item Value Reference Range Interpretation Comments MPV (test code = MPV) 8.2 7.4-10.4 [facility] CenterHpvhakyJQETNHVRHU1106-56-94 15:16:00 Test Item Value Reference Range Interpretation Comments Hct (test code = Hct) 38.7 36.0-48.0 [facility] Cent[id number] 15:16:00 Test Item Value Reference Range Interpretation Comments Hgb (test code = Hgb) 13.4 12.0-16.0 [facility] CenterTluiwpdBVWGZRRFIB7925-65-64 15:16:00 Test Item Value Reference Range Interpretation Comments RBC (test code = RBC) 4.37 4.20-5.40 [facility] CenterAtdujotTBMPDGTHMB5716-94-76 15:16:00 Test Item Value Reference Range Interpretation Comments WBC (test code = WBC) 7.4 3.7-10.4 [facility]2018-07-21 15:16:00 Test Item Value Reference Range Interpretation Comments UA Urobilinogen (test code = UA <=1.0 mg/dL 0.1-1.0 Urobilinogen) [facility] AND [id number] 15:16:00 Test Item Value Reference Range Interpretation Comments UA Mucus (test code = UA Mucus) Few /LPF [facility] AND [id number] 15:16:00 Test Item Value Reference Range Interpretation Comments UA CaOx Judy (test code = UA CaOx Many /HPF Judy) [facility] AND [id number] 15:16:00 Test Item Value Reference Range Interpretation Comments UA RBC (test code = 3 See_Comment [Automa kuldip message] The UA RBC) system which ge nerated this result transmit kuldip reference range : <=2. The reference range was not used to interpr et this result as abiodun l/abnormal. [facility] AND [id number] 15:16:00 Test Item Value Reference Range Interpretation Comments UA WBC (test code = 2 See_Comment [Automa kuldip message] The UA WBC) system which ge nerated this result transmit kuldip reference range : <=5. The reference range was not used to interpr et this result as abiodun l/abnormal. [facility] AND [id number] 15:16:00 Test Item Value Reference Range Interpretation Comments UA Leuk Est (test Negative (10/13/17 10:16 code = UA Leuk Est) AM) [facility] AND [id number] 15:16:00 Test Item Value Reference Range Interpretation Comments UA Sq Epi (test code = UA Sq Epi) Few /LPF [facility] AND [id number] 15:16:00 Test Item Value Reference Range Interpretation Comments UA Bacteria (test code = UA Occasional /HPF Bacteria) [facility] AND [id number] 15:16:00 Test Item Value Reference Range Interpretation Comments UA Blood (test code = Negative (10/13/17 10:16 UA Blood) AM) [facility] AND [id number] 15:16:00 Test Item Value Reference Range Interpretation Comments UA Nitrite (test code Negative (10/13/17 10:16 = UA Nitrite) AM) [facility] AND [id number] 15:16:00 Test Item Value Reference Range Interpretation Comments UA pH (test code = UA pH) 6.0 1 5.0-8.0 [facility] AND [id number] 15:16:00 Test Item Value Reference Range Interpretation Comments UA Spec Grav (test code = UA Spec 1.008 1 Grav) [facility] AND [id number] 15:16:00 Test Item Value Reference Range Interpretation Comments UA Ketones (test code = UA Negative mg/dL Ketones) [facility] AND [id number] 15:16:00 Test Item Value Reference Range Interpretation Comments UA Bili (test code = Negative *NA*(10/13/17 UA Bili) 10:16 AM) [facility] AND [id number] 15:16:00 Test Item Value Reference Range Interpretation Comments UA Glucose (test code = UA Negative mg/dL Glucose) [facility] [facility] [id number] 15:16:00 Test Item Value Reference Range Interpretation Comments UA Color (test code = Yellow *NA*(10/13/17 UA Color) 10:16 AM) [facility] AND [id number] 15:16:00 Test Item Value Reference Range Interpretation Comments UA Turbidity (test code Slight *ABN*(10/13/17 = UA Turbidity) 10:16 AM) [facility] AND [id number] 15:16:00 Test Item Value Reference Range Interpretation Comments UA Protein (test code = UA Negative mg/dL Protein) [facility]2018-07-21 15:16:00 Test Item Value Reference Range Interpretation Comments eGFR (test code = eGFR) 101 [facility]2018-07-21 15:16:00 Test Item Value Reference Range Interpretation Comments Bili Total (test code = Bili Total) 0.4 0.2-1.3 [facility]2018-07-21 15:16:00 Test Item Value Reference Range Interpretation Comments Alk Phos (test code = Alk Phos) 83 39-136 [facility]2018-07-21 15:16:00 Test Item Value Reference Range Interpretation Comments AST (test code = AST) 14 See_Comment [Auto mated message] The system which ge nerated this result transmit kuldip reference range : <=37. The reference range was not used to interpr et this result as abiodun l/abnormal. [facility]2018-07-21 15:16:00 Test Item Value Reference Range Interpretation Comments ALT (test code = ALT) 22 See_Comment [Auto mated message] The system which ge nerated this result transmit kuldip reference range : <=65. The reference range was not used to interpr et this result as abiodun l/abnormal. [facility]2018-07-21 15:16:00 Test Item Value Reference Range Interpretation Comments Glucose Lvl (test code = Glucose Lvl) 125 70-99 [facility]2018-07-21 15:16:00 Test Item Value Reference Range Interpretation Comments A/G Ratio (test code = A/G Ratio) 0.8 1 0.7-1.6 [facility]2018-07-21 15:16:00 Test Item Value Reference Range Interpretation Comments Globulin (test code = Globulin) 4.5 2.7-4.2 [facility]2018-07-21 15:16:00 Test Item Value Reference Range Interpretation Comments B/C Ratio (test code = B/C Ratio) 8 1 6-25 [facility]2018-07-21 15:16:00 Test Item Value Reference Range Interpretation Comments Calcium Lvl (test code = Calcium Lvl) 10.2 8.5-10.5 [facility]2018-07-21 15:16:00 Test Item Value Reference Range Interpretation Comments Total Protein (test code = Total 7.9 6.4-8.4 Protein) [facility]2018-07-21 15:16:00 Test Item Value Reference Range Interpretation Comments Albumin Lvl (test code = Albumin Lvl) 3.4 3.5-5.0 [facility]2018-07-21 15:16:00 Test Item Value Reference Range Interpretation Comments Chloride Lvl (test code = Chloride Lvl) 102 95-109 [facility]2018-07-21 15:16:00 Test Item Value Reference Range Interpretation Comments CO2 (test code = CO2) 30 24-32 [facility]2018-07-21 15:16:00 Test Item Value Reference Range Interpretation Comments AGAP (test code = AGAP) 10.8 10.0-20.0 [facility]2018-07-21 15:16:00 Test Item Value Reference Range Interpretation Comments BUN (test code = BUN) 7 7-22 [facility]2018-07-21 15:16:00 Test Item Value Reference Range Interpretation Comments Sodium Lvl (test code = Sodium Lvl) 139 135-145 [facility]2018-07-21 15:16:00 Test Item Value Reference Range Interpretation Comments Potassium Lvl (test code = Potassium 3.8 3.5-5.1 Lvl) [facility]2018-07-21 15:16:00 Test Item Value Reference Range Interpretation Comments Creatinine Lvl (test code = Creatinine 0.83 0.50-1.40 Lvl) [facility]2018-07-21 15:16:00 Test Item Value Reference Range Interpretation Comments Lipase Lvl (test code = Lipase Lvl) 204 73-393 [place] [id number] 15:16:00 Test Item Value Reference Range Interpretation Comments S Preg (test code = S Negative *NA*(10/13/17 Preg) 10:16 AM) [facility]psXEOZOBQTPL4974[facility] 15:16:00 Test Item Value Reference Range Interpretation Comments Monocytes (test code = Monocytes) 7.5 2.0-12.0 [facility] CenterPaaatbtJIHOOOWDSH2507-38-38 15:16:00 Test Item Value Reference Range Interpretation Comments Segs (test code = Segs) 64.6 45.0-75.0 [facility] Cent[id number] 15:16:00 Test Item Value Reference Range Interpretation Comments Lymphocytes (test code = Lymphocytes) 26.4 20.0-40.0 [facility] CenterDkxxdoiVWYETWQWCZ7077-02-13 15:16:00 Test Item Value Reference Range Interpretation Comments Neutrophils # (test code = Neutrophils 4.8 1.5-8.1 #) [facility] CenterNwzjlhmXGQJOGUXSH2768-56-31 15:16:00 Test Item Value Reference Range Interpretation Comments Basophils (test code = 0.4 See_Comment [Aut omated message] The Basophils) system which ge nerated this result tra nsmitted reference range : <=1.0. The reference r nilam was not used to int erpret this result as normal/abnormal . [place] [id number] 15:16:00 Test Item Value Reference Range Interpretation Comments Eosinophils (test code = 1.1 See_Comment [A utomated message] The Eosinophils) system which ge nerated this result tra nsmitted reference range : <=4.0. The reference r nilam was not used to int erpret this result as normal/abnormal . [facility] CenterIwoikvfKWPFOMKSWE3913-73-98 15:16:00 Test Item Value Reference Range Interpretation Comments Monocytes # (test code 0.6 See_Comment [Aut omated message] The = Monocytes #) system which generated this result tra nsmitted reference range : <=0.8. The reference r nilam was not used to int erpret this result as normal/abnormal . [facility] CenterZmqodafGBLJZTMIHH4687-51-27 15:16:00 Test Item Value Reference Range Interpretation Comments Lymphocytes # (test code = Lymphocytes 2.0 1.0-5.5 #) [facility] Cent[id number] 15:16:00 Test Item Value Reference Range Interpretation Comments Eosinophils # (test code 0.1 See_Comment [A utomated message] The = Eosinophils #) system whic h generated this result tra nsmitted reference range : <=0.5. The reference r nilam was not used to int erpret this result as normal/abnormal . [facility] CenterIuvtovrRLYANTCDSH5028-72-01 15:16:00 Test Item Value Reference Range Interpretation Comments RDW (test code = RDW) 13.4 11.5-14.5 [facility] CenterOmktegsIVCYODLWUS6007-65-08 15:16:00 Test Item Value Reference Range Interpretation Comments MCH (test code = MCH) 30.7 pg 27.0-31.0 [facility] CenterSojokqiQNMWEXQZJD7004-81-08 15:16:00 Test Item Value Reference Range Interpretation Comments Platelet (test code = Platelet) 204 133-450 [facility] CenterFdrqzkvQJXODRUZTW7994-12-37 15:16:00 Test Item Value Reference Range Interpretation Comments MCHC (test code = MCHC) 34.7 32.0-36.0 [facility] CenterKohbshgGIZUZBLYSG7654-00-02 15:16:00 Test Item Value Reference Range Interpretation Comments MCV (test code = MCV) 88.5 80.0-98.0 [facility] CenterFskhbhzRHWAQXZGJP7400-38-25 15:16:00 Test Item Value Reference Range Interpretation Comments MPV (test code = MPV) 8.2 7.4-10.4 [facility] CenterPcxvdqtKLVUBABNPL2375-34-88 15:16:00 Test Item Value Reference Range Interpretation Comments Hct (test code = Hct) 38.7 36.0-48.0 [facility] CenterWdafldgRWWGWKLTSC7391-63-48 15:16:00 Test Item Value Reference Range Interpretation Comments Hgb (test code = Hgb) 13.4 12.0-16.0 [facility] CenterYabtkqoGJOIVZOOFB9874-43-43 15:16:00 Test Item Value Reference Range Interpretation Comments RBC (test code = RBC) 4.37 4.20-5.40 [facility] CenterUemtnxnXMDZGDUJXM4490-69-15 15:16:00 Test Item Value Reference Range Interpretation Comments WBC (test code = WBC) 7.4 3.7-10.4 [facility] AND [id number] 15:16:00 Test Item Value Reference Range Interpretation Comments UA Urobilinogen (test code = UA <=1.0 mg/dL 0.1-1.0 Urobilinogen) [facility] AND [id number] 15:16:00 Test Item Value Reference Range Interpretation Comments UA Mucus (test code = UA Mucus) Few /LPF [facility] AND [id number] 15:16:00 Test Item Value Reference Range Interpretation Comments UA CaOx Judy (test code = UA CaOx Many /HPF Judy) [facility] AND [id number] 15:16:00 Test Item Value Reference Range Interpretation Comments UA RBC (test code = 3 See_Comment [Automa kuldip message] The UA RBC) system which ge nerated this result transmit kuldip reference range : <=2. The reference range was not used to interpr et this result as abiodun l/abnormal. [facility] AND [id number] 15:16:00 Test Item Value Reference Range Interpretation Comments UA WBC (test code = 2 See_Comment [Automa kuldip message] The UA WBC) system which ge nerated this result transmit kuldip reference range : <=5. The reference range was not used to interpr et this result as abiodun l/abnormal. [facility] AND [id number] 15:16:00 Test Item Value Reference Range Interpretation Comments UA Leuk Est (test Negative (10/13/17 10:16 code = UA Leuk Est) AM) [facility] AND [id number] 15:16:00 Test Item Value Reference Range Interpretation Comments UA Sq Epi (test code = UA Sq Epi) Few /LPF [facility] AND [id number] 15:16:00 Test Item Value Reference Range Interpretation Comments UA Bacteria (test code = UA Occasional /HPF Bacteria) [facility] AND [id number] 15:16:00 Test Item Value Reference Range Interpretation Comments UA Blood (test code = Negative (10/13/17 10:16 UA Blood) AM) [facility] AND [id number] 15:16:00 Test Item Value Reference Range Interpretation Comments UA Nitrite (test code Negative (10/13/17 10:16 = UA Nitrite) AM) [facility] AND [id number] 15:16:00 Test Item Value Reference Range Interpretation Comments UA pH (test code = UA pH) 6.0 1 5.0-8.0 [facility] AND [id number] 15:16:00 Test Item Value Reference Range Interpretation Comments UA Spec Grav (test code = UA Spec 1.008 1 Grav) [facility] AND [id number] 15:16:00 Test Item Value Reference Range Interpretation Comments UA Ketones (test code = UA Negative mg/dL Ketones) [facility] AND [id number] 15:16:00 Test Item Value Reference Range Interpretation Comments UA Bili (test code = Negative *NA*(10/13/17 UA Bili) 10:16 AM) [facility] AND [id number] 15:16:00 Test Item Value Reference Range Interpretation Comments UA Glucose (test code = UA Negative mg/dL Glucose) [facility] AND [id number] 15:16:00 Test Item Value Reference Range Interpretation Comments UA Color (test code = Yellow *NA*(10/13/17 UA Color) 10:16 AM) [facility] AND [id number] 15:16:00 Test Item Value Reference Range Interpretation Comments UA Turbidity (test code Slight *ABN*(10/13/17 = UA Turbidity) 10:16 AM) [facility] AND [id number] 15:16:00 Test Item Value Reference Range Interpretation Comments UA Protein (test code = UA Negative mg/dL Protein) [facility]2018-07-21 15:16:00 Test Item Value Reference Range Interpretation Comments eGFR (test code = eGFR) 101 [facility]2018-07-21 15:16:00 Test Item Value Reference Range Interpretation Comments Bili Total (test code = Bili Total) 0.4 0.2-1.3 [facility]2018-07-21 15:16:00 Test Item Value Reference Range Interpretation Comments Alk Phos (test code = Alk Phos) 83 39-136 [facility]2018-07-21 15:16:00 Test Item Value Reference Range Interpretation Comments AST (test code = AST) 14 See_Comment [Auto mated message] The system which ge nerated this result transmit kuldip reference range : <=37. The reference range was not used to interpr et this result as abiodun l/abnormal. [facility]2018-07-21 15:16:00 Test Item Value Reference Range Interpretation Comments ALT (test code = ALT) 22 See_Comment [Auto mated message] The system which ge nerated this result transmit kuldip reference range : <=65. The reference range was not used to interpr et this result as abiodun l/abnormal. [facility]2018-07-21 15:16:00 Test Item Value Reference Range Interpretation Comments Glucose Lvl (test code = Glucose Lvl) 125 70-99 [facility]2018-07-21 15:16:00 Test Item Value Reference Range Interpretation Comments A/G Ratio (test code = A/G Ratio) 0.8 1 0.7-1.6 [facility]2018-07-21 15:16:00 Test Item Value Reference Range Interpretation Comments Globulin (test code = Globulin) 4.5 2.7-4.2 [facility]2018-07-21 15:16:00 Test Item Value Reference Range Interpretation Comments B/C Ratio (test code = B/C Ratio) 8 1 6-25 [facility]2018-07-21 15:16:00 Test Item Value Reference Range Interpretation Comments Calcium Lvl (test code = Calcium Lvl) 10.2 8.5-10.5 [facility]2018-07-21 15:16:00 Test Item Value Reference Range Interpretation Comments Total Protein (test code = Total 7.9 6.4-8.4 Protein) [facility]2018-07-21 15:16:00 Test Item Value Reference Range Interpretation Comments Albumin Lvl (test code = Albumin Lvl) 3.4 3.5-5.0 [facility]2018-07-21 15:16:00 Test Item Value Reference Range Interpretation Comments Chloride Lvl (test code = Chloride Lvl) 102 95-109 [facility]2018-07-21 15:16:00 Test Item Value Reference Range Interpretation Comments CO2 (test code = CO2) 30 24-32 [facility]2018-07-21 15:16:00 Test Item Value Reference Range Interpretation Comments AGAP (test code = AGAP) 10.8 10.0-20.0 [facility]2018-07-21 15:16:00 Test Item Value Reference Range Interpretation Comments BUN (test code = BUN) 7 7-22 [facility]2018-07-21 15:16:00 Test Item Value Reference Range Interpretation Comments Sodium Lvl (test code = Sodium Lvl) 139 135-145 [facility]2018-07-21 15:16:00 Test Item Value Reference Range Interpretation Comments Potassium Lvl (test code = Potassium 3.8 3.5-5.1 Lvl) [facility]2018-07-21 15:16:00 Test Item Value Reference Range Interpretation Comments Creatinine Lvl (test code = Creatinine 0.83 0.50-1.40 Lvl) [facility]2018-07-21 15:16:00 Test Item Value Reference Range Interpretation Comments Lipase Lvl (test code = Lipase Lvl) 204 73-393 [facility]wplyfwCADOHCPTELFTS2959-19-92 15:16:00 Test Item Value Reference Range Interpretation Comments S Preg (test code = S Negative *NA*(10/13/17 Preg) 10:16 AM) [facility] CenterRpmppigLYLJNMZPYT6919-06-77 15:16:00 Test Item Value Reference Range Interpretation Comments Monocytes (test code = Monocytes) 7.5 2.0-12.0 [facility] Cent[id number] 15:16:00 Test Item Value Reference Range Interpretation Comments Segs (test code = Segs) 64.6 45.0-75.0 [facility] CenterYweksfiPCUNPBAGKH7814-57-74 15:16:00 Test Item Value Reference Range Interpretation Comments Lymphocytes (test code = Lymphocytes) 26.4 20.0-40.0 [facility] CenterCnkfpfmEZEAZMNJKZ0136-74-54 15:16:00 Test Item Value Reference Range Interpretation Comments Neutrophils # (test code = Neutrophils 4.8 1.5-8.1 #) [facility] CenterMcffoqzGGVPHEPVRN6096-62-18 15:16:00 Test Item Value Reference Range Interpretation Comments Basophils (test code = 0.4 See_Comment [Aut omated message] The Basophils) system which ge nerated this result tra nsmitted reference range : <=1.0. The reference r nilam was not used to int erpret this result as normal/abnormal . [facility] CenterJvurvntNNOXXNRLZN5221-78-22 15:16:00 Test Item Value Reference Range Interpretation Comments Eosinophils (test code = 1.1 See_Comment [A utomated message] The Eosinophils) system which ge nerated this result tra nsmitted reference range : <=4.0. The reference r nilam was not used to int erpret this result as normal/abnormal . [facility] CenterXrwedykIKFKQKXFMF3003-05-31 15:16:00 Test Item Value Reference Range Interpretation Comments Monocytes # (test code 0.6 See_Comment [Aut omated message] The = Monocytes #) system which generated this result tra nsmitted reference range : <=0.8. The reference r nilam was not used to int erpret this result as normal/abnormal . [facility] CenterTicoflvTDLCYUMUKF8509-85-39 15:16:00 Test Item Value Reference Range Interpretation Comments Lymphocytes # (test code = Lymphocytes 2.0 1.0-5.5 #) [facility] CenterItailzoMNRXZPTGOL8707-21-02 15:16:00 Test Item Value Reference Range Interpretation Comments Eosinophils # (test code 0.1 See_Comment [A utomated message] The = Eosinophils #) system [facility] generated this result tra nsmitted reference range : <=0.5. The reference r nilam was not used to int erpret this result as normal/abnormal . [facility] CenterRdcwnoqEBXTSXNKZN0056-14-95 15:16:00 Test Item Value Reference Range Interpretation Comments RDW (test code = RDW) 13.4 11.5-14.5 [facility] CenterFcnryrkUWBCSRQOCB5522-91-23 15:16:00 Test Item Value Reference Range Interpretation Comments MCH (test code = MCH) 30.7 pg 27.0-31.0 [facility] CenterBdstyicQLHAIWKRPB2590-10-17 15:16:00 Test Item Value Reference Range Interpretation Comments Platelet (test code = Platelet) 204 133-450 [facility] CenterJqrkoilRNXEOLXMZM3225-32-73 15:16:00 Test Item Value Reference Range Interpretation Comments MCHC (test code = MCHC) 34.7 32.0-36.0 [facility] CenterYdjslyrBCZORJBKXI4207-22-91 15:16:00 Test Item Value Reference Range Interpretation Comments MCV (test code = MCV) 88.5 80.0-98.0 [facility] CenterFzlhjaiFVKJFDOWOO1887-23-94 15:16:00 Test Item Value Reference Range Interpretation Comments MPV (test code = MPV) 8.2 7.4-10.4 [facility] CenterDjmdssqKZAAHVJDLH4037-18-69 15:16:00 Test Item Value Reference Range Interpretation Comments Hct (test code = Hct) 38.7 36.0-48.0 [facility] CenterGhpdrseOXLLXJIBEX8307-54-64 15:16:00 Test Item Value Reference Range Interpretation Comments Hgb (test code = Hgb) 13.4 12.0-16.0 [facility] CenterGnighrrAVKDBVRAGW3322-51-01 15:16:00 Test Item Value Reference Range Interpretation Comments RBC (test code = RBC) 4.37 4.20-5.40 [facility] CenterTgnaapjTCYIYKKGTA4020-70-96 15:16:00 Test Item Value Reference Range Interpretation Comments WBC (test code = WBC) 7.4 3.7-10.4 [facility] AND [id number] 15:16:00 Test Item Value Reference Range Interpretation Comments UA Urobilinogen (test code = UA <=1.0 mg/dL 0.1-1.0 Urobilinogen) [facility] AND [id number] 15:16:00 Test Item Value Reference Range Interpretation Comments UA Mucus (test code = UA Mucus) Few /LPF [facility] AND [id number] 15:16:00 Test Item Value Reference Range Interpretation Comments UA CaOx Judy (test code = UA CaOx Many /HPF Judy) [facility] AND [id number] 15:16:00 Test Item Value Reference Range Interpretation Comments UA RBC (test code = 3 See_Comment [Automa kuldip message] The UA RBC) system which ge nerated this result transmit kuldip reference range : <=2. The reference range was not used to interpr et this result as abiodun l/abnormal. [facility] AND [id number] 15:16:00 Test Item Value Reference Range Interpretation Comments UA WBC (test code = 2 See_Comment [Automa kuldip message] The UA WBC) system which ge nerated this result transmit kuldip reference range : <=5. The reference range was not used to interpr et this result as abiodun l/abnormal. [facility] AND [id number] 15:16:00 Test Item Value Reference Range Interpretation Comments UA Leuk Est (test Negative (10/13/17 10:16 code = UA Leuk Est) AM) [facility] AND [id number] 15:16:00 Test Item Value Reference Range Interpretation Comments UA Sq Epi (test code = UA Sq Epi) Few /LPF [facility] AND [id number] 15:16:00 Test Item Value Reference Range Interpretation Comments UA Bacteria (test code = UA Occasional /HPF Bacteria) [facility] AND [id number] 15:16:00 Test Item Value Reference Range Interpretation Comments UA Blood (test code = Negative (10/13/17 10:16 UA Blood) AM) [facility] AND [id number] 15:16:00 Test Item Value Reference Range Interpretation Comments UA Nitrite (test code Negative (10/13/17 10:16 = UA Nitrite) AM) [facility] AND [id number] 15:16:00 Test Item Value Reference Range Interpretation Comments UA pH (test code = UA pH) 6.0 1 5.0-8.0 [facility] AND [id number] 15:16:00 Test Item Value Reference Range Interpretation Comments UA Spec Grav (test code = UA Spec 1.008 1 Grav) [facility] AND [id number] 15:16:00 Test Item Value Reference Range Interpretation Comments UA Ketones (test code = UA Negative mg/dL Ketones) [facility] AND [id number] 15:16:00 Test Item Value Reference Range Interpretation Comments UA Bili (test code = Negative *NA*(10/13/17 UA Bili) 10:16 AM) [facility] AND [id number] 15:16:00 Test Item Value Reference Range Interpretation Comments UA Glucose (test code = UA Negative mg/dL Glucose) [facility] AND [id number] 15:16:00 Test Item Value Reference Range Interpretation Comments UA Color (test code = Yellow *NA*(10/13/17 UA Color) 10:16 AM) [facility] AND [id number] 15:16:00 Test Item Value Reference Range Interpretation Comments UA Turbidity (test code Slight *ABN*(10/13/17 = UA Turbidity) 10:16 AM) [facility] AND [id number] 15:16:00 Test Item Value Reference Range Interpretation Comments UA Protein (test code = UA Negative mg/dL Protein) [facility]2018-07-21 15:16:00 Test Item Value Reference Range Interpretation Comments eGFR (test code = eGFR) 101 [facility]2018-07-21 15:16:00 Test Item Value Reference Range Interpretation Comments Bili Total (test code = Bili Total) 0.4 0.2-1.3 [facility]2018-07-21 15:16:00 Test Item Value Reference Range Interpretation Comments Alk Phos (test code = Alk Phos) 83 39-136 [facility]2018-07-21 15:16:00 Test Item Value Reference Range Interpretation Comments AST (test code = AST) 14 See_Comment [Auto mated message] The system which ge nerated this result transmit kuldip reference range : <=37. The reference range was not used to interpr et this result as abiodun l/abnormal. [facility]2018-07-21 15:16:00 Test Item Value Reference Range Interpretation Comments ALT (test code = ALT) 22 See_Comment [Auto mated message] The system which ge nerated this result transmit kuldip reference range : <=65. The reference range was not used to interpr et this result as abiodun l/abnormal. [facility]2018-07-21 15:16:00 Test Item Value Reference Range Interpretation Comments Glucose Lvl (test code = Glucose Lvl) 125 70-99 [facility]2018-07-21 15:16:00 Test Item Value Reference Range Interpretation Comments A/G Ratio (test code = A/G Ratio) 0.8 1 0.7-1.6 [facility]2018-07-21 15:16:00 Test Item Value Reference Range Interpretation Comments Globulin (test code = Globulin) 4.5 2.7-4.2 [facility]2018-07-21 15:16:00 Test Item Value Reference Range Interpretation Comments B/C Ratio (test code = B/C Ratio) 8 1 6-25 [facility]2018-07-21 15:16:00 Test Item Value Reference Range Interpretation Comments Calcium Lvl (test code = Calcium Lvl) 10.2 8.5-10.5 [facility]2018-07-21 15:16:00 Test Item Value Reference Range Interpretation Comments Total Protein (test code = Total 7.9 6.4-8.4 Protein) [facility]2018-07-21 15:16:00 Test Item Value Reference Range Interpretation Comments Albumin Lvl (test code = Albumin Lvl) 3.4 3.5-5.0 [facility]2018-07-21 15:16:00 Test Item Value Reference Range Interpretation Comments Chloride Lvl (test code = Chloride Lvl) 102 95-109 [facility]2018-07-21 15:16:00 Test Item Value Reference Range Interpretation Comments CO2 (test code = CO2) 30 24-32 [facility]2018-07-21 15:16:00 Test Item Value Reference Range Interpretation Comments AGAP (test code = AGAP) 10.8 10.0-20.0 [facility]2018-07-21 15:16:00 Test Item Value Reference Range Interpretation Comments BUN (test code = BUN) 7 7-22 [facility]2018-07-21 15:16:00 Test Item Value Reference Range Interpretation Comments Sodium Lvl (test code = Sodium Lvl) 139 135-145 [facility]2018-07-21 15:16:00 Test Item Value Reference Range Interpretation Comments Potassium Lvl (test code = Potassium 3.8 3.5-5.1 Lvl) [facility]2018-07-21 15:16:00 Test Item Value Reference Range Interpretation Comments Creatinine Lvl (test code = Creatinine 0.83 0.50-1.40 Lvl) [facility]2018-07-21 15:16:00 Test Item Value Reference Range Interpretation Comments Lipase Lvl (test code = Lipase Lvl) 204 73-393 [facility]NSKA[facility]BNZRHDW2872-04-57 15:16:00 Test Item Value Reference Range Interpretation Comments S Preg (test code = S Negative *NA*(10/13/17 Preg) 10:16 AM) [facility]UjpgmlwJLGPESUNUO8157-23-04 15:16:00 Test Item Value Reference Range Interpretation Comments Monocytes (test code = Monocytes) 7.5 2.0-12.0 [facility] CenterFgsngsbRGYLOXZRKK7895-54-73 15:16:00 Test Item Value Reference Range Interpretation Comments Segs (test code = Segs) 64.6 45.0-75.0 [facility] CenterIdmlxcgQCZVGXZJRX3166-08-17 15:16:00 Test Item Value Reference Range Interpretation Comments Lymphocytes (test code = Lymphocytes) 26.4 20.0-40.0 [facility] CenterEtplwwgERHUWDCKAQ7092-55-65 15:16:00 Test Item Value Reference Range Interpretation Comments Neutrophils # (test code = Neutrophils 4.8 1.5-8.1 #) [facility] CenterVfdqzmyLOKJZBXIZQ5861-91-27 15:16:00 Test Item Value Reference Range Interpretation Comments Basophils (test code = 0.4 See_Comment [Aut omated message] The Basophils) system which nerated this result tra nsmitted reference range : <=1.0. The reference r nilam was not used to int erpret this result as normal/abnormal . [facility] CenterMrsdscgTUJAWWHVMN8278-56-73 15:16:00 Test Item Value Reference Range Interpretation Comments Eosinophils (test code = 1.1 See_Comment [A utomated message] The Eosinophils) system which ge nerated this result tra nsmitted reference range : <=4.0. The reference r nilam was not used to int erpret this result as normal/abnormal . [facility] CenterOkkkefsICNONOQGKS1369-45-31 15:16:00 Test Item Value Reference Range Interpretation Comments Monocytes # (test code 0.6 See_Comment [Aut omated message] The = Monocytes #) system which generated this result tra nsmitted reference range : <=0.8. The reference r nilam was not used to int erpret this result as normal/abnormal . [facility] CenterUekueydQKJRTHRCPX9987-48-12 15:16:00 Test Item Value Reference Range Interpretation Comments Lymphocytes # (test code = Lymphocytes 2.0 1.0-5.5 #) [facility] CenterNtkylkdYVIDZFNXDK8270-92-09 15:16:00 Test Item Value Reference Range Interpretation Comments Eosinophils # (test code 0.1 See_Comment [A utomated message] The = Eosinophils #) system whic h generated this result tra nsmitted reference range : <=0.5. The reference r nilam was not used to int erpret this result as normal/abnormal . [facility] CenterKlnzxbvHEKYWMXLPZ1372-72-62 15:16:00 Test Item Value Reference Range Interpretation Comments RDW (test code = RDW) 13.4 11.5-14.5 [facility] CenterNyujmeiXAMLIBGECA0455-67-40 15:16:00 Test Item Value Reference Range Interpretation Comments MCH (test code = MCH) 30.7 pg 27.0-31.0 [facility] CenterKkurotaXVMEOEKPJG7347-64-89 15:16:00 Test Item Value Reference Range Interpretation Comments Platelet (test code = Platelet) 204 133-450 [facility] CenterFsmlmqiQVYTJBRXCS9298-22-66 15:16:00 Test Item Value Reference Range Interpretation Comments MCHC (test code = MCHC) 34.7 32.0-36.0 [facility] CenterWyhakwqGLHZTIWNJQ9950-81-37 15:16:00 Test Item Value Reference Range Interpretation Comments MCV (test code = MCV) 88.5 80.0-98.0 [facility] CenterXjnlrqkDYDHVKANJI1109-37-00 15:16:00 Test Item Value Reference Range Interpretation Comments MPV (test code = MPV) 8.2 7.4-10.4 [facility] CenterBzysoglSXOIWVRZBD0063-28-85 15:16:00 Test Item Value Reference Range Interpretation Comments Hct (test code = Hct) 38.7 36.0-48.0 [facility] CenterNvqavcrNQNOHLATWL8922-23-93 15:16:00 Test Item Value Reference Range Interpretation Comments Hgb (test code = Hgb) 13.4 12.0-16.0 [facility] CenterAvcjeyjCLZVKZLMSZ8042-34-93 15:16:00 Test Item Value Reference Range Interpretation Comments RBC (test code = RBC) 4.37 4.20-5.40 [facility] CenterGujbelnWCUEDZPPDJ6711-72-54 15:16:00 Test Item Value Reference Range Interpretation Comments WBC (test code = WBC) 7.4 3.7-10.4 [facility] [id number] 15:16:00 Test Item Value Reference Range Interpretation Comments UA Urobilinogen (test code = UA <=1.0 mg/dL 0.1-1.0 Urobilinogen) [facility] [id number] 15:16:00 Test Item Value Reference Range Interpretation Comments UA Mucus (test code = UA Mucus) Few /LPF [facility] [id number] 15:16:00 Test Item Value Reference Range Interpretation Comments UA CaOx Judy (test code = UA CaOx Many /HPF Judy) [facility] [id number] 15:16:00 Test Item Value Reference Range Interpretation Comments UA RBC (test code = 3 See_Comment [Automa kuldip message] The UA RBC) system which ge nerated this result transmit kuldip reference range : <=2. The reference range was not used to interpr et this result as abiodun l/abnormal. [facility] [id number] 15:16:00 Test Item Value Reference Range Interpretation Comments UA WBC (test code = 2 See_Comment [Automa kuldip message] The UA WBC) system which ge nerated this result transmit kuldip reference range : <=5. The reference range was not used to interpr et this result as abiodun l/abnormal. [facility] [id number] 15:16:00 Test Item Value Reference Range Interpretation Comments UA Leuk Est (test Negative (10/13/17 10:16 code = UA Leuk Est) AM) [facility] [id number] 15:16:00 Test Item Value Reference Range Interpretation Comments UA Sq Epi (test code = UA Sq Epi) Few /LPF [facility] [id number] 15:16:00 Test Item Value Reference Range Interpretation Comments UA Bacteria (test code = UA Occasional /HPF Bacteria) [facility] [id number] 15:16:00 Test Item Value Reference Range Interpretation Comments UA Blood (test code = Negative (10/13/17 10:16 UA Blood) AM) [facility] [id number] 15:16:00 Test Item Value Reference Range Interpretation Comments UA Nitrite (test code Negative (10/13/17 10:16 = UA Nitrite) AM) [facility] [id number] 15:16:00 Test Item Value Reference Range Interpretation Comments UA pH (test code = UA pH) 6.0 1 5.0-8.0 [facility] [id number] 15:16:00 Test Item Value Reference Range Interpretation Comments UA Spec Grav (test code = UA Spec 1.008 1 Grav) [facility] [id number] 15:16:00 Test Item Value Reference Range Interpretation Comments UA Ketones (test code = UA Negative mg/dL Ketones) [facility] [id number] 15:16:00 Test Item Value Reference Range Interpretation Comments UA Bili (test code = Negative *NA*(10/13/17 UA Bili) 10:16 AM) [facility] [id number] 15:16:00 Test Item Value Reference Range Interpretation Comments UA Glucose (test code = UA Negative mg/dL Glucose) [facility] [id number] 15:16:00 Test Item Value Reference Range Interpretation Comments UA Color (test code = Yellow *NA*(10/13/17 UA Color) 10:16 AM) [facility] [id number] 15:16:00 Test Item Value Reference Range Interpretation Comments UA Turbidity (test code Slight *ABN*(10/13/17 = UA Turbidity) 10:16 AM) [facility] [id number] 15:16:00 Test Item Value Reference Range Interpretation Comments UA Protein (test code = UA Negative mg/dL Protein) [place] [id number] 13:00:00 Test Item Value Reference Range Interpretation Comments S Preg (test code = S Negative *NA*(05/01/16 Preg) 7:00 AM) [place] [id number] 13:00:00 Test Item Value Reference Range Interpretation Comments S Preg (test code = S Negative *NA*(05/01/16 Preg) 7:00 AM) [id number] 13:00:00 Test Item Value Reference Range Interpretation Comments S Preg (test code = S Negative *NA*(05/01/16 Preg) 7:00 AM) [facility]HrlpfqzNQYISDJGTYPXQ5250-69-62 13:00:00 Test Item Value Reference Range Interpretation Comments S Preg (test code = S Negative *NA*(05/01/16 Preg) 7:00 AM) [facility]XBKAVLWR6118[facility]-14 13:00:00 Test Item Value Reference Range Interpretation Comments S Preg (test code = S Negative *NA*(05/01/16 Preg) 7:00 AM) [facility] [id number] 16:31:00 Test Item Value Reference Range Interpretation Comments ABO/Rh (test code = ABO/Rh) B [facility] [employer] [id number] 16:31:00 Test Item Value Reference Range Interpretation Comments Antibody Scrn (test Negative (04/24/16 code = Antibody Scrn) 10:31 AM) [facility] [employer] [id number] 16:31:00 Test Item Value Reference Range Interpretation Comments ABO/Rh (test code = ABO/Rh) B [facility] [employer] [id number] 16:31:00 Test Item Value Reference Range Interpretation Comments Antibody Scrn (test Negative (04/24/16 code = Antibody Scrn) 10:31 AM) [facility] [id number] 16:31:00 Test Item Value Reference Range Interpretation Comments ABO/Rh (test code = ABO/Rh) B [facility] [employer] [id number] 16:31:00 Test Item Value Reference Range Interpretation Comments Antibody Scrn (test Negative (04/24/16 code = Antibody Scrn) 10:31 AM) [facility] [employer] [id number] 16:31:00 Test Item Value Reference Range Interpretation Comments ABO/Rh (test code = ABO/Rh) B [facility] [employer] [id number] 16:31:00 Test Item Value Reference Range Interpretation Comments Antibody Scrn (test Negative (04/24/16 code = Antibody Scrn) 10:31 AM) [facility] [id number] 16:31:00 Test Item Value Reference Range Interpretation Comments ABO/Rh (test code = ABO/Rh) B [facility] [id number] 16:31:00 Test Item Value Reference Range Interpretation Comments Antibody Scrn (test Negative (04/24/16 code = Antibody Scrn) 10:31 AM) [facility] Cent[id number] 16:30:00 Test Item Value Reference Range Interpretation Comments Basophils # (test code 0.0 See_Comment [Aut omated message] The = Basophils #) system which generated this result tra nsmitted reference range : <=0.2. The reference r nilam was not used to int erpret this result as normal/abnormal . [facility] CenterJrxukyzJNLJTWREOP3291-30-51 16:30:00 Test Item Value Reference Range Interpretation Comments Monocytes # (test code 0.4 See_Comment [Aut omated message] The = Monocytes #) system which generated this result tra nsmitted reference range : <=0.8. The reference r nilam was not used to int erpret this result as normal/abnormal . [facility] CenterNxyazbvATAXJQJCJZ2066-73-28 16:30:00 Test Item Value Reference Range Interpretation Comments Eosinophils # (test code 0.1 See_Comment [A utomated message] The = Eosinophils #) system whic h generated this result tra nsmitted reference range : <=0.5. The reference r nilam was not used to int erpret this result as normal/abnormal . [facility] CenterTcuarzzZSOGMCYDAP8802-53-13 16:30:00 Test Item Value Reference Range Interpretation Comments Segs-Bands # (test code = Segs-Bands #) 3.3 1.5-8.1 [facility] [id number] 16:30:00 Test Item Value Reference Range Interpretation Comments Lymphocytes # (test code = Lymphocytes 1.6 1.0-5.5 #) [facility] Cent[id number] 16:30:00 Test Item Value Reference Range Interpretation Comments Segs (test code = Segs) 60.9 45.0-75.0 [facility] CenterDiarfxwXDZWKZWNEB9177-09-92 16:30:00 Test Item Value Reference Range Interpretation Comments Basophils (test code = 0.5 See_Comment [Aut omated message] The Basophils) system which ge nerated this result tra nsmitted reference range : <=1.0. The reference r nilam was not used to int erpret this result as normal/abnormal . [facility] CenterVhrlbstXHDTXEFQQQ3831-57-05 16:30:00 Test Item Value Reference Range Interpretation Comments Eosinophils (test code = 1.8 See_Comment [A utomated message] The Eosinophils) system which ge nerated this result tra nsmitted reference range : <=4.0. The reference r nilam was not used to int erpret this result as normal/abnormal . [facility] CenterQtjixovYBWIFYHCIA5471-61-23 16:30:00 Test Item Value Reference Range Interpretation Comments Lymphocytes (test code = Lymphocytes) 29.1 20.0-40.0 [facility] CenterHxdtbetFNLWTAJYDS8664-07-04 16:30:00 Test Item Value Reference Range Interpretation Comments Monocytes (test code = Monocytes) 7.7 2.0-12.0 [facility] CenterZuwovtsTZTZVVIDXK5696-19-09 16:30:00 Test Item Value Reference Range Interpretation Comments MCH (test code = MCH) 28.5 pg 27.0-31.0 [facility] Cent[id number] 16:30:00 Test Item Value Reference Range Interpretation Comments MCV (test code = MCV) 87.6 80.0-98.0 [facility] CenterMqheuujTBYOGURPCY3532-46-55 16:30:00 Test Item Value Reference Range Interpretation Comments Hct (test code = Hct) 37.5 36.0-48.0 [facility] Cent[id number] 16:30:00 Test Item Value Reference Range Interpretation Comments MCHC (test code = MCHC) 32.6 32.0-36.0 [facility] CenterYngtpzjITUKAKXDIS7625-52-09 16:30:00 Test Item Value Reference Range Interpretation Comments Platelet (test code = Platelet) 263 133-450 [facility] CenterSeijrlnKAGMILUFGK7320-91-54 16:30:00 Test Item Value Reference Range Interpretation Comments RDW (test code = RDW) 15.8 11.5-14.5 [facility] CenterQnhxcyoEGTRSNBPRT3458-66-32 16:30:00 Test Item Value Reference Range Interpretation Comments MPV (test code = MPV) 8.6 7.4-10.4 [facility] CenterLsdmyeiCLCBCDXPIO5413-86-89 16:30:00 Test Item Value Reference Range Interpretation Comments WBC (test code = WBC) 5.4 3.7-10.4 [facility] CenterTujbevfJDKRSIHMDR6512-92-31 16:30:00 Test Item Value Reference Range Interpretation Comments Hgb (test code = Hgb) 12.2 12.0-16.0 [facility] CenterIprglziELIANCFVVQ5639-79-16 16:30:00 Test Item Value Reference Range Interpretation Comments RBC (test code = RBC) 4.29 4.20-5.40 [facility] CenterYudrdwnWFPKWYGQMO2064-61-73 16:30:00 Test Item Value Reference Range Interpretation Comments Basophils # (test code 0.0 See_Comment [Aut omated message] The = Basophils #) system which generated this result tra nsmitted reference range : <=0.2. The reference r nilam was not used to int erpret this result as normal/abnormal . [facility] CenterAvkimrfYSCARJLEQQ4349-28-51 16:30:00 Test Item Value Reference Range Interpretation Comments Monocytes # (test code 0.4 See_Comment [Aut omated message] The = Monocytes #) system which generated this result tra nsmitted reference range : <=0.8. The reference r nilam was not used to int erpret this result as normal/abnormal . [facility] CenterZqlhynqZMHYPCXJBG1021-95-77 16:30:00 Test Item Value Reference Range Interpretation Comments Eosinophils # (test code 0.1 See_Comment [A utomated message] The = Eosinophils #) system whic h generated this result tra nsmitted reference range : <=0.5. The reference r nilam was not used to int erpret this result as normal/abnormal . [facility] CenterPfcsinlEIILPNXOWK6172-11-94 16:30:00 Test Item Value Reference Range Interpretation Comments Segs-Bands # (test code = Segs-Bands #) 3.3 1.5-8.1 [facility] CenterQaeqxrgLUFVEIUREG0766-96-16 16:30:00 Test Item Value Reference Range Interpretation Comments Lymphocytes # (test code = Lymphocytes 1.6 1.0-5.5 #) [facility] CenterDflkhfdGLDGEQVDQO5502-39-08 16:30:00 Test Item Value Reference Range Interpretation Comments Segs (test code = Segs) 60.9 45.0-75.0 [facility] CenterDfjekpcGYQJBLTGKB7073-21-46 16:30:00 Test Item Value Reference Range Interpretation Comments Basophils (test code = 0.5 See_Comment [Aut omated message] The Basophils) system which ge nerated this result tra nsmitted reference range : <=1.0. The reference r nilam was not used to int erpret this result as normal/abnormal . [facility] CenterKlptxfiPNBKYROKMR8308-39-97 16:30:00 Test Item Value Reference Range Interpretation Comments Eosinophils (test code = 1.8 See_Comment [A utomated message] The Eosinophils) system which ge nerated this result tra nsmitted reference range : <=4.0. The reference r nilam was not used to int erpret this result as normal/abnormal . [facility] CenterNlyllgjOAJIJBYEML1480-24-56 16:30:00 Test Item Value Reference Range Interpretation Comments Lymphocytes (test code = Lymphocytes) 29.1 20.0-40.0 [facility] CenterZrdzxizKUWYBXKZAQ5647-02-27 16:30:00 Test Item Value Reference Range Interpretation Comments Monocytes (test code = Monocytes) 7.7 2.0-12.0 [facility] CenterOmqkosaVUDTTHTMUT0524-25-22 16:30:00 Test Item Value Reference Range Interpretation Comments MCH (test code = MCH) 28.5 pg 27.0-31.0 [facility] CenterMxvdvscXKZMAEYGGE2894-94-81 16:30:00 Test Item Value Reference Range Interpretation Comments MCV (test code = MCV) 87.6 80.0-98.0 [facility] CenterCvoefobTIUSFTEFQU3105-90-27 16:30:00 Test Item Value Reference Range Interpretation Comments Hct (test code = Hct) 37.5 36.0-48.0 [facility] CenterLcnefpxFXCINUROSM9805-96-89 16:30:00 Test Item Value Reference Range Interpretation Comments MCHC (test code = MCHC) 32.6 32.0-36.0 [facility] CenterPgwwkfsPPYNIBRPEB5546-67-03 16:30:00 Test Item Value Reference Range Interpretation Comments Platelet (test code = Platelet) 263 133-450 [facility] CenterPokashhRBYWWMVWTY4805-07-73 16:30:00 Test Item Value Reference Range Interpretation Comments RDW (test code = RDW) 15.8 11.5-14.5 [facility] CenterFecmapsVTMUGFXFWP4648-70-38 16:30:00 Test Item Value Reference Range Interpretation Comments MPV (test code = MPV) 8.6 7.4-10.4 [facility] CenterJpsrrzaFIPNGHSEOO3508-01-27 16:30:00 Test Item Value Reference Range Interpretation Comments WBC (test code = WBC) 5.4 3.7-10.4 [facility] CenterFbadkzlXENLMHEESR4668-52-00 16:30:00 Test Item Value Reference Range Interpretation Comments Hgb (test code = Hgb) 12.2 12.0-16.0 [facility] CenterXfidkoyPJKJMGKLDX6110-57-16 16:30:00 Test Item Value Reference Range Interpretation Comments RBC (test code = RBC) 4.29 4.20-5.40 [facility] CenterBxlulgeJPDXKTYWRH7109-92-03 16:30:00 Test Item Value Reference Range Interpretation Comments Basophils # (test code 0.0 See_Comment [Aut omated message] The = Basophils #) system which generated this result tra nsmitted reference range : <=0.2. The reference r nilam was not used to int erpret this result as normal/abnormal . [facility] CenterYnwdyyyCCEHRSRJXG6127-58-94 16:30:00 Test Item Value Reference Range Interpretation Comments Monocytes # (test code 0.4 See_Comment [Aut omated message] The = Monocytes #) system which generated this result tra nsmitted reference range : <=0.8. The reference r nilam was not used to int erpret this result as normal/abnormal . [facility] CenterCkbhtrcTGLLFIQYJB1462-22-71 16:30:00 Test Item Value Reference Range Interpretation Comments Eosinophils # (test code 0.1 See_Comment [A utomated message] The = Eosinophils #) system whic h generated this result tra nsmitted reference range : <=0.5. The reference r nilam was not used to int erpret this result as normal/abnormal . [facility] CenterQzuncbrNIFWZPIMKY1546-64-73 16:30:00 Test Item Value Reference Range Interpretation Comments Segs-Bands # (test code = Segs-Bands #) 3.3 1.5-8.1 [facility] CenterVzfacbwUOGYHQULGQ0910-00-68 16:30:00 Test Item Value Reference Range Interpretation Comments Lymphocytes # (test code = Lymphocytes 1.6 1.0-5.5 #) [facility] CenterQcrabrsUSEPUUPJOY7137-98-94 16:30:00 Test Item Value Reference Range Interpretation Comments Segs (test code = Segs) 60.9 45.0-75.0 [facility] CenterMfeeyioKBHRINNQLC6461-57-61 16:30:00 Test Item Value Reference Range Interpretation Comments Basophils (test code = 0.5 See_Comment [Aut omated message] The Basophils) system which ge nerated this result tra nsmitted reference range : <=1.0. The reference r nilam was not used to int erpret this result as normal/abnormal . [facility] CenterNhwbqxrKQMGHYZRRY4701-90-53 16:30:00 Test Item Value Reference Range Interpretation Comments Eosinophils (test code = 1.8 See_Comment [A utomated message] The Eosinophils) system which ge nerated this result tra nsmitted reference range : <=4.0. The reference r nilam was not used to int erpret this result as normal/abnormal . [facility] CenterDcmbatpVDLUEVFSKT4842-49-54 16:30:00 Test Item Value Reference Range Interpretation Comments Lymphocytes (test code = Lymphocytes) 29.1 20.0-40.0 [facility] CenterTgjxbmkFTBYUTDNTA0271-52-59 16:30:00 Test Item Value Reference Range Interpretation Comments Monocytes (test code = Monocytes) 7.7 2.0-12.0 [facility] CenterXyqfrbnJECIPKIZSC3436-08-52 16:30:00 Test Item Value Reference Range Interpretation Comments MCH (test code = MCH) 28.5 pg 27.0-31.0 [facility] CenterJleknrtVQLWODOSXG8803-05-62 16:30:00 Test Item Value Reference Range Interpretation Comments MCV (test code = MCV) 87.6 80.0-98.0 [facility] CenterOotehkrYLPLOQZYZU4322-24-84 16:30:00 Test Item Value Reference Range Interpretation Comments Hct (test code = Hct) 37.5 36.0-48.0 [facility] CenterAiidkftKSAJJHBMMB7210-25-45 16:30:00 Test Item Value Reference Range Interpretation Comments MCHC (test code = MCHC) 32.6 32.0-36.0 [facility] CenterLkqxxxiJGMPABHPBJ6054-70-53 16:30:00 Test Item Value Reference Range Interpretation Comments Platelet (test code = Platelet) [phone] [facility] CenterHifukbgOGYCAJDOZU1285-60-41 16:30:00 Test Item Value Reference Range Interpretation Comments RDW (test code = RDW) 15.8 11.5-14.5 [facility] Cent[id number] 16:30:00 Test Item Value Reference Range Interpretation Comments MPV (test code = MPV) 8.6 7.4-10.4 [facility] CenterRbbdveeYJSXUNDHVK8855-81-30 16:30:00 Test Item Value Reference Range Interpretation Comments WBC (test code = WBC) 5.4 3.7-10.4 [facility] Cent[id number] 16:30:00 Test Item Value Reference Range Interpretation Comments Hgb (test code = Hgb) 12.2 12.0-16.0 [facility] CenterPjdqjmkONAKLILGEX1587-52-16 16:30:00 Test Item Value Reference Range Interpretation Comments RBC (test code = RBC) 4.29 4.20-5.40 [facility] CenterDugyxtsGVCBVPCHAA7548-54-65 16:30:00 Test Item Value Reference Range Interpretation Comments Basophils # (test code 0.0 See_Comment [Aut omated message] The = Basophils #) system which generated this result tra nsmitted reference range : <=0.2. The reference r nilam was not used to int erpret this result as normal/abnormal . [facility] CenterAaybtckKDWKOVVRMO7824-06-29 16:30:00 Test Item Value Reference Range Interpretation Comments Monocytes # (test code 0.4 See_Comment [Aut omated message] The = Monocytes #) system which generated this result tra nsmitted reference range : <=0.8. The reference r nilam was not used to int erpret this result as normal/abnormal . [facility] CenterFlslkvvPIUHHOCCQT9816-85-23 16:30:00 Test Item Value Reference Range Interpretation Comments Eosinophils # (test code 0.1 See_Comment [A utomated message] The = Eosinophils #) system whic h generated this result tra nsmitted reference range : <=0.5. The reference r nilam was not used to int erpret this result as normal/abnormal . [facility] CenterNnrridhVHDIOAHWFP9219-12-06 16:30:00 Test Item Value Reference Range Interpretation Comments Segs-Bands # (test code = Segs-Bands #) 3.3 1.5-8.1 [facility] CenterRcvbszsQEQZOUIODP6714-08-42 16:30:00 Test Item Value Reference Range Interpretation Comments Lymphocytes # (test code = Lymphocytes 1.6 1.0-5.5 #) [facility] CenterApnmtjrCRGNMQMDPR6659-27-53 16:30:00 Test Item Value Reference Range Interpretation Comments Segs (test code = Segs) 60.9 45.0-75.0 [facility] CenterRvcvjfmCSTHOETGZM5612-51-40 16:30:00 Test Item Value Reference Range Interpretation Comments Basophils (test code = 0.5 See_Comment [Aut omated message] The Basophils) system which ge nerated this result tra nsmitted reference range : <=1.0. The reference r nilam was not used to int erpret this result as normal/abnormal . [facility] CenterHwbfonnASZNNUYGBN4871-40-95 16:30:00 Test Item Value Reference Range Interpretation Comments Eosinophils (test code = 1.8 See_Comment [A utomated message] The Eosinophils) system which ge nerated this result tra nsmitted reference range : <=4.0. The reference r nilam was not used to int erpret this result as normal/abnormal . [facility] CenterProwdlmBTPLPTMOEL4922-39-11 16:30:00 Test Item Value Reference Range Interpretation Comments Lymphocytes (test code = Lymphocytes) 29.1 20.0-40.0 [facility] CenterQiiatocDMRZLEWJPR5792-06-74 16:30:00 Test Item Value Reference Range Interpretation Comments Monocytes (test code = Monocytes) 7.7 2.0-12.0 [facility] CenterPtswvifINGZPARDKD6478-20-09 16:30:00 Test Item Value Reference Range Interpretation Comments MCH (test code = MCH) 28.5 pg 27.0-31.0 [facility] CenterAnpbalsQNNTDPHEEF6313-02-07 16:30:00 Test Item Value Reference Range Interpretation Comments MCV (test code = MCV) 87.6 80.0-98.0 [facility] CenterGvtcytaBUHQTYNPWX4057-57-14 16:30:00 Test Item Value Reference Range Interpretation Comments Hct (test code = Hct) 37.5 36.0-48.0 [facility] CenterTrowbqfPALIORUSOE3440-56-04 16:30:00 Test Item Value Reference Range Interpretation Comments MCHC (test code = MCHC) 32.6 32.0-36.0 [facility] CenterNgvolmpFMWVXBGFLS9556-77-76 16:30:00 Test Item Value Reference Range Interpretation Comments Platelet (test code = Platelet) [phone] [facility] CenterLwfyndtVUAYYYBTQB0960-49-59 16:30:00 Test Item Value Reference Range Interpretation Comments RDW (test code = RDW) 15.8 11.5-14.5 [facility] CenterQjaskjfVKYCVEDRRZ7027-34-01 16:30:00 Test Item Value Reference Range Interpretation Comments MPV (test code = MPV) 8.6 7.4-10.4 [facility] CenterXadshteDDNZDUESGD7518-17-24 16:30:00 Test Item Value Reference Range Interpretation Comments WBC (test code = WBC) 5.4 3.7-10.4 [facility] CenterCfpgeqsZLFETVHAHT7939-69-90 16:30:00 Test Item Value Reference Range Interpretation Comments Hgb (test code = Hgb) 12.2 12.0-16.0 [facility] CenterXjfhbgkNQSKXYDSLY0956-69-90 16:30:00 Test Item Value Reference Range Interpretation Comments RBC (test code = RBC) 4.29 4.20-5.40 [facility] CenterWlyjlcdIISHSBPJGA7271-37-64 16:30:00 Test Item Value Reference Range Interpretation Comments Basophils # (test code 0.0 See_Comment [Aut omated message] The = Basophils #) system which generated this result tra nsmitted reference range : <=0.2. The reference r nilam was not used to int erpret this result as normal/abnormal . [facility] CenterMpdvonyKNBAXBICNY0199-20-03 16:30:00 Test Item Value Reference Range Interpretation Comments Monocytes # (test code 0.4 See_Comment [Aut omated message] The = Monocytes #) system which generated this result tra nsmitted reference range : <=0.8. The reference r nilam was not used to int erpret this result as normal/abnormal . [facility] CenterQetrauiAVWHGNFUVE5029-87-69 16:30:00 Test Item Value Reference Range Interpretation Comments Eosinophils # (test code 0.1 See_Comment [A utomated message] The = Eosinophils #) system whic h generated this result tra nsmitted reference range : <=0.5. The reference r nilam was not used to int erpret this result as normal/abnormal . [facility] CenterZpxanwuOXJETLVZSX0606-07-87 16:30:00 Test Item Value Reference Range Interpretation Comments Segs-Bands # (test code = Segs-Bands #) 3.3 1.5-8.1 [facility] CenterXbqtjmaTAMVYSMSJA8714-04-67 16:30:00 Test Item Value Reference Range Interpretation Comments Lymphocytes # (test code = Lymphocytes 1.6 1.0-5.5 #) [facility] CenterMwcsdmcEDGXCFZPSD0157-59-59 16:30:00 Test Item Value Reference Range Interpretation Comments Segs (test code = Segs) 60.9 45.0-75.0 [facility] CenterWvpdfcdBDMKIRIFKX7659-46-43 16:30:00 Test Item Value Reference Range Interpretation Comments Basophils (test code = 0.5 See_Comment [Aut omated message] The Basophils) system which ge nerated this result tra nsmitted reference range : <=1.0. The reference r nilam was not used to int erpret this result as normal/abnormal . [facility] CenterTmihhvcXQFFSQGBZA6600-23-29 16:30:00 Test Item Value Reference Range Interpretation Comments Eosinophils (test code = 1.8 See_Comment [A utomated message] The Eosinophils) system which ge nerated this result tra nsmitted reference range : <=4.0. The reference r nilam was not used to int erpret this result as normal/abnormal . [facility] CenterYsllsbhKCTZMWTJSG3350-79-04 16:30:00 Test Item Value Reference Range Interpretation Comments Lymphocytes (test code = Lymphocytes) 29.1 20.0-40.0 [facility] CenterBnozdalBUOCLLFUSR6256-23-82 16:30:00 Test Item Value Reference Range Interpretation Comments Monocytes (test code = Monocytes) 7.7 2.0-12.0 [facility] CenterGycucmyDPHWEDTQOK3052-29-28 16:30:00 Test Item Value Reference Range Interpretation Comments MCH (test code = MCH) 28.5 pg 27.0-31.0 [facility] CenterAxznwbgQPBNMQIKPC2395-62-24 16:30:00 Test Item Value Reference Range Interpretation Comments MCV (test code = MCV) 87.6 80.0-98.0 [facility] CenterKzehpfxLKLWJVHPVZ7511-30-79 16:30:00 Test Item Value Reference Range Interpretation Comments Hct (test code = Hct) 37.5 36.0-48.0 [facility] CenterNzjwzmtPNZGRZXSBP9291-03-86 16:30:00 Test Item Value Reference Range Interpretation Comments MCHC (test code = MCHC) 32.6 32.0-36.0 [facility] CenterKexkojgQKDPVNZIRF1460-59-03 16:30:00 Test Item Value Reference Range Interpretation Comments Platelet (test code = Platelet) 263 133-450 [facility] CenterQqlawkmBNWHKFUQIP1389-74-22 16:30:00 Test Item Value Reference Range Interpretation Comments RDW (test code = RDW) 15.8 11.5-14.5 [facility] CenterQrsttrkHEXTTFJSHM4238-97-69 16:30:00 Test Item Value Reference Range Interpretation Comments MPV (test code = MPV) 8.6 7.4-10.4 [facility] CenterHppwkbrMZKHRPIGNC3343-45-46 16:30:00 Test Item Value Reference Range Interpretation Comments WBC (test code = WBC) 5.4 3.7-10.4 [facility] CenterMosvzykZDVBYGJRRR9537-88-16 16:30:00 Test Item Value Reference Range Interpretation Comments Hgb (test code = Hgb) 12.2 12.0-16.0 [facility] CenterSqnftwfVRUNAEXHDH9740-54-93 16:30:00 Test Item Value Reference Range Interpretation Comments RBC (test code = RBC) 4.29 4.20-5.40 [facility] AND [id number] 23:03:00 Test Item Value Reference Range Interpretation Comments UA Color (test code = Yellow *NA*(03/17/16 UA Color) 5:03 PM) [facility] AND [id number] 23:03:00 Test Item Value Reference Range Interpretation Comments UA Turbidity (test code Cloudy *ABN*(03/17/16 = UA Turbidity) 5:03 PM) [facility] AND [id number] 23:03:00 Test Item Value Reference Range Interpretation Comments UA Ketones (test code Negative *NA*(03/17/16 = UA Ketones) 5:03 PM) [facility] AND [id number] 23:03:00 Test Item Value Reference Range Interpretation Comments UA Glucose (test code Negative (03/17/16 5:03 = UA Glucose) PM) [facility] AND [id number] 23:03:00 Test Item Value Reference Range Interpretation Comments UA Spec Grav (test code = UA Spec 1.025 1 Grav) [facility] AND [id number] 23:03:00 Test Item Value Reference Range Interpretation Comments UA pH (test code = UA pH) 6.0 1 5.0-8.0 [facility] [id number] 23:03:00 Test Item Value Reference Range Interpretation Comments UA Protein (test code = UA Protein) 30 mg/dL [facility] AND [id number] 23:03:00 Test Item Value Reference Range Interpretation Comments UA Nitrite (test code Negative (03/17/16 5:03 = UA Nitrite) PM) [facility] AND [id number] 23:03:00 Test Item Value Reference Range Interpretation Comments UA Bili (test code = Negative *NA*(03/17/16 UA Bili) 5:03 PM) [facility] AND [id number] 23:03:00 Test Item Value Reference Range Interpretation Comments UA Blood (test code = Moderate *ABN*(03/17/16 UA Blood) 5:03 PM) [facility] AND [id number] 23:03:00 Test Item Value Reference Range Interpretation Comments UA Urobilinogen (test code = UA 4.0 0.1-1.0 Urobilinogen) [facility] AND [id number] 23:03:00 Test Item Value Reference Range Interpretation Comments UA Leuk Est (test Moderate *ABN*(03/17/16 code = UA Leuk Est) 5:03 PM) [facility] AND [id number] 23:03:00 Test Item Value Reference Range Interpretation Comments UA Sq Epi (test code = UA Sq Occasional /LPF Epi) [facility] AND [id number] 23:03:00 Test Item Value Reference Range Interpretation Comments UA RBC (test code = 3-5 /HPF See_Comment [Automa kuldip message] The UA RBC) system which ge nerated this result tra nsmitted reference range : <=2. The reference range was not used to interpr et this result as abiodun l/abnormal. [facility] [id number] 23:03:00 Test Item Value Reference Range Interpretation Comments UA Bacteria (test code = UA Many /HPF Bacteria) [facility] AND [id number] 23:03:00 Test Item Value Reference Range Interpretation Comments UA WBC (test code = UA WBC) 11-20 /HPF [facility] AND [id number] 23:03:00 Test Item Value Reference Range Interpretation Comments UA Color (test code = Yellow *NA*(03/17/16 UA Color) 5:03 PM) [facility] AND [id number] 23:03:00 Test Item Value Reference Range Interpretation Comments UA Turbidity (test code Cloudy *ABN*(03/17/16 = UA Turbidity) 5:03 PM) [facility] AND [id number] 23:03:00 Test Item Value Reference Range Interpretation Comments UA Ketones (test code Negative *NA*(03/17/16 = UA Ketones) 5:03 PM) [facility] AND [id number] 23:03:00 Test Item Value Reference Range Interpretation Comments UA Glucose (test code Negative (03/17/16 5:03 = UA Glucose) PM) [facility] AND [id number] 23:03:00 Test Item Value Reference Range Interpretation Comments UA Spec Grav (test code = UA Spec 1.025 1 Grav) [facility] AND [id number] 23:03:00 Test Item Value Reference Range Interpretation Comments UA pH (test code = UA pH) 6.0 1 5.0-8.0 [facility] AND [id number] 23:03:00 Test Item Value Reference Range Interpretation Comments UA Protein (test code = UA Protein) 30 mg/dL [facility] AND [id number] 23:03:00 Test Item Value Reference Range Interpretation Comments UA Nitrite (test code Negative (03/17/16 5:03 = UA Nitrite) PM) [facility] AND [id number] 23:03:00 Test Item Value Reference Range Interpretation Comments UA Bili (test code = Negative *NA*(03/17/16 UA Bili) 5:03 PM) [facility] AND [id number] 23:03:00 Test Item Value Reference Range Interpretation Comments UA Blood (test code = Moderate *ABN*(03/17/16 UA Blood) 5:03 PM) [facility] AND [id number] 23:03:00 Test Item Value Reference Range Interpretation Comments UA Urobilinogen (test code = UA 4.0 0.1-1.0 Urobilinogen) [facility] AND [id number] 23:03:00 Test Item Value Reference Range Interpretation Comments UA Leuk Est (test Moderate *ABN*(03/17/16 code = UA Leuk Est) 5:03 PM) [facility] AND [id number] 23:03:00 Test Item Value Reference Range Interpretation Comments UA Sq Epi (test code = UA Sq Occasional /LPF Epi) [facility] AND [id number] 23:03:00 Test Item Value Reference Range Interpretation Comments UA RBC (test code = 3-5 /HPF See_Comment [Automa kuldip message] The UA RBC) system which ge nerated this result tra nsmitted reference range : <=2. The reference range was not used to interpr et this result as abiodun l/abnormal. [facility] AND [id number] 23:03:00 Test Item Value Reference Range Interpretation Comments UA Bacteria (test code = UA Many /HPF Bacteria) [facility] AND [id number] 23:03:00 Test Item Value Reference Range Interpretation Comments UA WBC (test code = UA WBC) 11-20 /HPF [facility] AND [id number] 23:03:00 Test Item Value Reference Range Interpretation Comments UA Color (test code = Yellow *NA*(03/17/16 UA Color) 5:03 PM) [facility] AND [id number] 23:03:00 Test Item Value Reference Range Interpretation Comments UA Turbidity (test code Cloudy *ABN*(03/17/16 = UA Turbidity) 5:03 PM) [facility] AND [id number] 23:03:00 Test Item Value Reference Range Interpretation Comments UA Ketones (test code Negative *NA*(03/17/16 = UA Ketones) 5:03 PM) [facility] AND [id number] 23:03:00 Test Item Value Reference Range Interpretation Comments UA Glucose (test code Negative (03/17/16 5:03 = UA Glucose) PM) [facility] AND [id number] 23:03:00 Test Item Value Reference Range Interpretation Comments UA Spec Grav (test code = UA Spec 1.025 1 Grav) [facility] AND [id number] 23:03:00 Test Item Value Reference Range Interpretation Comments UA pH (test code = UA pH) 6.0 1 5.0-8.0 [facility] AND [id number] 23:03:00 Test Item Value Reference Range Interpretation Comments UA Protein (test code = UA Protein) 30 mg/dL [facility] AND [id number] 23:03:00 Test Item Value Reference Range Interpretation Comments UA Nitrite (test code Negative (03/17/16 5:03 = UA Nitrite) PM) [facility] AND [id number] 23:03:00 Test Item Value Reference Range Interpretation Comments UA Bili (test code = Negative *NA*(03/17/16 UA Bili) 5:03 PM) [facility] AND [id number] 23:03:00 Test Item Value Reference Range Interpretation Comments UA Blood (test code = Moderate *ABN*(03/17/16 UA Blood) 5:03 PM) [facility] AND [id number] 23:03:00 Test Item Value Reference Range Interpretation Comments UA Urobilinogen (test code = UA 4.0 0.1-1.0 Urobilinogen) [facility] AND [id number] 23:03:00 Test Item Value Reference Range Interpretation Comments UA Leuk Est (test Moderate *ABN*(03/17/16 code = UA Leuk Est) 5:03 PM) [facility] AND [id number] 23:03:00 Test Item Value Reference Range Interpretation Comments UA Sq Epi (test code = UA Sq Occasional /LPF Epi) [facility] AND [id number] 23:03:00 Test Item Value Reference Range Interpretation Comments UA RBC (test code = 3-5 /HPF See_Comment [Automa kuldip message] The UA RBC) system which ge nerated this result tra nsmitted reference range : <=2. The reference range was not used to interpr et this result as abiodun l/abnormal. [facility] AND [id number] 23:03:00 Test Item Value Reference Range Interpretation Comments UA Bacteria (test code = UA Many /HPF Bacteria) [facility] AND [id number] 23:03:00 Test Item Value Reference Range Interpretation Comments UA WBC (test code = UA WBC) 11-20 /HPF [facility] AND [id number] 23:03:00 Test Item Value Reference Range Interpretation Comments UA Color (test code = Yellow *NA*(03/17/16 UA Color) 5:03 PM) [facility] AND [id number] 23:03:00 Test Item Value Reference Range Interpretation Comments UA Turbidity (test code Cloudy *ABN*(03/17/16 = UA Turbidity) 5:03 PM) [facility] AND [id number] 23:03:00 Test Item Value Reference Range Interpretation Comments UA Ketones (test code Negative *NA*(03/17/16 = UA Ketones) 5:03 PM) [facility] AND [id number] 23:03:00 Test Item Value Reference Range Interpretation Comments UA Glucose (test code Negative (03/17/16 5:03 = UA Glucose) PM) [facility] AND [id number] 23:03:00 Test Item Value Reference Range Interpretation Comments UA Spec Grav (test code = UA Spec 1.025 1 Grav) [facility] AND [id number] 23:03:00 Test Item Value Reference Range Interpretation Comments UA pH (test code = UA pH) 6.0 1 5.0-8.0 [facility] AND [id number] 23:03:00 Test Item Value Reference Range Interpretation Comments UA Protein (test code = UA Protein) 30 mg/dL [facility] AND [id number] 23:03:00 Test Item Value Reference Range Interpretation Comments UA Nitrite (test code Negative (03/17/16 5:03 = UA Nitrite) PM) [facility] AND [id number] 23:03:00 Test Item Value Reference Range Interpretation Comments UA Bili (test code = Negative *NA*(03/17/16 UA Bili) 5:03 PM) [facility] AND [id number] 23:03:00 Test Item Value Reference Range Interpretation Comments UA Blood (test code = Moderate *ABN*(03/17/16 UA Blood) 5:03 PM) [facility] AND [id number] 23:03:00 Test Item Value Reference Range Interpretation Comments UA Urobilinogen (test code = UA 4.0 0.1-1.0 Urobilinogen) [facility] AND [id number] 23:03:00 Test Item Value Reference Range Interpretation Comments UA Leuk Est (test Moderate *ABN*(03/17/16 code = UA Leuk Est) 5:03 PM) [facility] AND [id number] 23:03:00 Test Item Value Reference Range Interpretation Comments UA Sq Epi (test code = UA Sq Occasional /LPF Epi) [facility] AND [id number] 23:03:00 Test Item Value Reference Range Interpretation Comments UA RBC (test code = 3-5 /HPF See_Comment [Automa kuldip message] The UA RBC) system which ge nerated this result tra nsmitted reference range : <=2. The reference range was not used to interpr et this result as abiodun l/abnormal. [facility] AND [id number] 23:03:00 Test Item Value Reference Range Interpretation Comments UA Bacteria (test code = UA Many /HPF Bacteria) [facility] AND [id number] 23:03:00 Test Item Value Reference Range Interpretation Comments UA WBC (test code = UA WBC) 11-20 /HPF [facility] AND [id number] 23:03:00 Test Item Value Reference Range Interpretation Comments UA Color (test code = Yellow *NA*(03/17/16 UA Color) 5:03 PM) [facility] AND [id number] 23:03:00 Test Item Value Reference Range Interpretation Comments UA Turbidity (test code Cloudy *ABN*(03/17/16 = UA Turbidity) 5:03 PM) [facility] AND [id number] 23:03:00 Test Item Value Reference Range Interpretation Comments UA Ketones (test code Negative *NA*(03/17/16 = UA Ketones) 5:03 PM) [facility] AND [id number] 23:03:00 Test Item Value Reference Range Interpretation Comments UA Glucose (test code Negative (03/17/16 5:03 = UA Glucose) PM) [facility] AND [id number] 23:03:00 Test Item Value Reference Range Interpretation Comments UA Spec Grav (test code = UA Spec 1.025 1 Grav) [facility] AND [id number] 23:03:00 Test Item Value Reference Range Interpretation Comments UA pH (test code = UA pH) 6.0 1 5.0-8.0 [facility] [id number] 23:03:00 Test Item Value Reference Range Interpretation Comments UA Protein (test code = UA Protein) 30 mg/dL [facility] [id number] 23:03:00 Test Item Value Reference Range Interpretation Comments UA Nitrite (test code Negative (03/17/16 5:03 = UA Nitrite) PM) [facility] AND [id number] 23:03:00 Test Item Value Reference Range Interpretation Comments UA Bili (test code = Negative *NA*(03/17/16 UA Bili) 5:03 PM) [facility] AND [id number] 23:03:00 Test Item Value Reference Range Interpretation Comments UA Blood (test code = Moderate *ABN*(03/17/16 UA Blood) 5:03 PM) [facility] AND [id number] 23:03:00 Test Item Value Reference Range Interpretation Comments UA Urobilinogen (test code = UA 4.0 0.1-1.0 Urobilinogen) [facility] AND [id number] 23:03:00 Test Item Value Reference Range Interpretation Comments UA Leuk Est (test Moderate *ABN*(03/17/16 code = UA Leuk Est) 5:03 PM) [facility] AND [id number] 23:03:00 Test Item Value Reference Range Interpretation Comments UA Sq Epi (test code = UA Sq Occasional /LPF Epi) [facility] AND [id number] 23:03:00 Test Item Value Reference Range Interpretation Comments UA RBC (test code = 3-5 /HPF See_Comment [Automa kuldip message] The UA RBC) system which ge nerated this result tra nsmitted reference range : <=2. The reference range was not used to interpr et this result as abiodun l/abnormal. [facility] [id number] 23:03:00 Test Item Value Reference Range Interpretation Comments UA Bacteria (test code = UA Many /HPF Bacteria) [facility] AND [id number] 23:03:00 Test Item Value Reference Range Interpretation Comments UA WBC (test code = UA WBC) 11-20 /HPF [facility]CHE[facility] [id number] 22:42:00 Test Item Value Reference Range Interpretation Comments Lipase Lvl (test code = Lipase Lvl) 193 73-393 [facility]2016-12-23 22:42:00 Test Item Value Reference Range Interpretation Comments A/G Ratio (test code = A/G Ratio) 0.5 0.7-1.6 [facility]2016-12-23 22:42:00 Test Item Value Reference Range Interpretation Comments AGAP (test code = AGAP) 11.4 10.0-20.0 [facility]2016-12-23 22:42:00 Test Item Value Reference Range Interpretation Comments Globulin (test code = Globulin) 5.5 2.7-4.2 [facility]2016-12-23 22:42:00 Test Item Value Reference Range Interpretation Comments B/C Ratio (test code = B/C Ratio) 7 6-25 [place] 188936-12-23 22:42:00 Test Item Value Reference Range Interpretation Comments eGFR (test code = eGFR) 100 [facility]2016-12-23 22:42:00 Test Item Value Reference Range Interpretation Comments ALANINE AMINOTRANSFERASE 65 See_Comment [A utomated message] (test code = ALANINE The sys tem which AMINOTRANSFERASE) generated this result transmitted ref erence range: <=65. Th e reference range was not used to int erpret this result as normal/abnormal . [facility]2016-12-23 22:42:00 Test Item Value Reference Range Interpretation Comments Potassium Lvl (test code = Potassium 3.4 3.5-5.1 Lvl) [facility]2016-12-23 22:42:00 Test Item Value Reference Range Interpretation Comments BUN (test code = BUN) 6 7-22 [facility]2016-12-23 22:42:00 Test Item Value Reference Range Interpretation Comments Sodium Lvl (test code = Sodium Lvl) 137 135-145 [facility]2016-12-23 22:42:00 Test Item Value Reference Range Interpretation Comments Creatinine Lvl (test code = Creatinine 0.85 0.50-1.40 Lvl) [facility]2016-12-23 22:42:00 Test Item Value Reference Range Interpretation Comments Bili Total (test code = Bili Total) 0.5 0.2-1.3 [facility]2016-12-23 22:42:00 Test Item Value Reference Range Interpretation Comments Chloride Lvl (test code = Chloride Lvl) 100 95-109 [facility]2016-12-23 22:42:00 Test Item Value Reference Range Interpretation Comments Calcium Lvl (test code = Calcium Lvl) 9.6 8.5-10.5 [facility]2016-12-23 22:42:00 Test Item Value Reference Range Interpretation Comments CO2 (test code = CO2) 29 24-32 [facility]2016-12-23 22:42:00 Test Item Value Reference Range Interpretation Comments ASPARTATE TRANSAMINASE 59 See_Comment [Aut omated message] (test code = ASPARTATE The s ystem which TRANSAMINASE) generated this result transmitted ref erence range: <=37. Th e reference range was not used to interpr et this result as normal/abnormal . [facility]2016-12-23 22:42:00 Test Item Value Reference Range Interpretation Comments Total Protein (test code = Total 8.5 6.4-8.4 Protein) [facility]2016-12-23 22:42:00 Test Item Value Reference Range Interpretation Comments Glucose Lvl (test code = Glucose Lvl) 106 70-99 [facility]2016-12-23 22:42:00 Test Item Value Reference Range Interpretation Comments Albumin Lvl (test code = Albumin Lvl) 3.0 3.5-5.0 [facility]2016-12-23 22:42:00 Test Item Value Reference Range Interpretation Comments Alk Phos (test code = Alk Phos) 83 39-136 [facility]WpcyjewGKLWVTTKCKKKM9599-81-10 22:42:00 Test Item Value Reference Range Interpretation Comments S Preg (test code = S Negative *NA*(03/17/16 Preg) 4:42 PM) [facility] CenterGawepjrWPKHNPYSHU6191-94-24 22:42:00 Test Item Value Reference Range Interpretation Comments MPV (test code = MPV) 8.6 7.4-10.4 [facility] CenterCoridsmHNBUGBKRHM6815-30-93 22:42:00 Test Item Value Reference Range Interpretation Comments MCHC (test code = MCHC) 34.3 32.0-36.0 [facility] CenterEplhrsoQVPBPZGCUD2229-65-13 22:42:00 Test Item Value Reference Range Interpretation Comments Platelet (test code = Platelet) 133 133-450 [facility] CenterVbicobiIDWHFRVNKE7344-33-55 22:42:00 Test Item Value Reference Range Interpretation Comments RDW (test code = RDW) 16.8 11.5-14.5 [facility] CenterXciifqgCMRQZNCNEF1923-26-40 22:42:00 Test Item Value Reference Range Interpretation Comments MCH (test code = MCH) 28.7 pg 27.0-31.0 [facility] CenterKblkdsqWQWGQJRULB0834-08-13 22:42:00 Test Item Value Reference Range Interpretation Comments Hgb (test code = Hgb) 11.7 12.0-16.0 [facility] CenterSmduernJGXQHNYNRK8947-51-28 22:42:00 Test Item Value Reference Range Interpretation Comments Hct (test code = Hct) 34.1 36.0-48.0 [facility] CenterJtmdtaiJEUAMAZYIB9803-22-59 22:42:00 Test Item Value Reference Range Interpretation Comments WBC X 10x3 (test code = WBC X 10x3) 7.6 3.7-10.4 [facility] CenterMyvxjjqZRXZDZRKHY8307-42-81 22:42:00 Test Item Value Reference Range Interpretation Comments MCV (test code = MCV) 83.6 80.0-98.0 [facility] CenterFwbnyagQJZQWOHUZB4531-89-14 22:42:00 Test Item Value Reference Range Interpretation Comments RBC X 10x6 (test code = RBC X 10x6) 4.08 4.20-5.40 [facility] CenterXwkxnbjUYMTDZSWTP6263-96-87 22:42:00 Test Item Value Reference Range Interpretation Comments Eosinophils (test code = 0.6 See_Comment [A utomated message] The Eosinophils) system which ge nerated this result tra nsmitted reference range : <=4.0. The reference r nilam was not used to int erpret this result as normal/abnormal . [facility] CenterShbipsgHXIIXCTMZP5684-27-62 22:42:00 Test Item Value Reference Range Interpretation Comments Lymphocytes (test code = Lymphocytes) 16.1 20.0-40.0 [facility] CenterDkiqoznTPNHDHDPRE1443-90-19 22:42:00 Test Item Value Reference Range Interpretation Comments Monocytes (test code = Monocytes) 12.9 2.0-12.0 [facility] CenterZdcvahwNWYQUPJVHT2264-96-57 22:42:00 Test Item Value Reference Range Interpretation Comments Segs-Bands # (test code = Segs-Bands #) 5.3 1.5-8.1 [facility] CenterHifsoxiWVAKDLERKQ4693-70-35 22:42:00 Test Item Value Reference Range Interpretation Comments Monocytes # (test code 1.0 See_Comment [Aut omated message] The = Monocytes #) system which generated this result tra nsmitted reference range : <=0.8. The reference r nilam was not used to int erpret this result as normal/abnormal . [facility] CenterJpkclbuHATPCCAADR9728-22-16 22:42:00 Test Item Value Reference Range Interpretation Comments Lymphocytes # (test code = Lymphocytes 1.2 1.0-5.5 #) [facility] CenterInpqcppTNUIKGVNYK2671-14-41 22:42:00 Test Item Value Reference Range Interpretation Comments Basophils (test code = 0.2 See_Comment [Aut omated message] The Basophils) system which ge nerated this result tra nsmitted reference range : <=1.0. The reference r nilam was not used to int erpret this result as normal/abnormal . [facility] CenterIbdvouxMHTLDQMXCX8598-93-84 22:42:00 Test Item Value Reference Range Interpretation Comments Segs (test code = Segs) 70.2 45.0-75.0 [facility] - RZERWLZQ2974-66-00 22:42:00 Test Item Value Reference Range Interpretation Comments Influ B (test code = Negative (03/17/16 4:42 Influ B) PM) [facility] - [id number] 22:42:00 Test Item Value Reference Range Interpretation Comments Influ A (test code = Negative (03/17/16 4:42 Influ A) PM) [facility] JKIZI2146-04-04 22:42:00 Test Item Value Reference Range Interpretation Comments Lipase Lvl (test code = Lipase Lvl) 193 73-393 [facility]2016-12-23 22:42:00 Test Item Value Reference Range Interpretation Comments A/G Ratio (test code = A/G Ratio) 0.5 0.7-1.6 [facility]2016-12-23 22:42:00 Test Item Value Reference Range Interpretation Comments AGAP (test code = AGAP) 11.4 10.0-20.0 [facility]2016-12-23 22:42:00 Test Item Value Reference Range Interpretation Comments Globulin (test code = Globulin) 5.5 2.7-4.2 [facility]2016-12-23 22:42:00 Test Item Value Reference Range Interpretation Comments B/C Ratio (test code = B/C Ratio) 7 6-25 [facility]2016-12-23 22:42:00 Test Item Value Reference Range Interpretation Comments eGFR (test code = eGFR) 100 [facility]2016-12-23 22:42:00 Test Item Value Reference Range Interpretation Comments ALANINE AMINOTRANSFERASE 65 See_Comment [A utomated message] (test code = ALANINE The sys tem which AMINOTRANSFERASE) generated this result transmitted ref erence range: <=65. Th e reference range was not used to int erpret this result as normal/abnormal . [facility]2016-12-23 22:42:00 Test Item Value Reference Range Interpretation Comments Potassium Lvl (test code = Potassium 3.4 3.5-5.1 Lvl) [facility]2016-12-23 22:42:00 Test Item Value Reference Range Interpretation Comments BUN (test code = BUN) 6 7- [facility]2016-12-23 22:42:00 Test Item Value Reference Range Interpretation Comments Sodium Lvl (test code = Sodium Lvl) 137 135-145 [facility]2016-12-23 22:42:00 Test Item Value Reference Range Interpretation Comments Creatinine Lvl (test code = Creatinine 0.85 0.50-1.40 Lvl) [facility]2016-12-23 22:42:00 Test Item Value Reference Range Interpretation Comments Bili Total (test code = Bili Total) 0.5 0.2-1.3 [facility]2016-12-23 22:42:00 Test Item Value Reference Range Interpretation Comments Chloride Lvl (test code = Chloride Lvl) 100 95-109 [facility]2016-12-23 22:42:00 Test Item Value Reference Range Interpretation Comments Calcium Lvl (test code = Calcium Lvl) 9.6 8.5-10.5 [facility]2016-12-23 22:42:00 Test Item Value Reference Range Interpretation Comments CO2 (test code = CO2) 29 24-32 [facility]2016-12-23 22:42:00 Test Item Value Reference Range Interpretation Comments ASPARTATE TRANSAMINASE 59 See_Comment [Aut omated message] (test code = ASPARTATE The s ystem which TRANSAMINASE) generated this result transmitted ref erence range: <=37. Th e reference range was not used to interpr et this result as normal/abnormal . [facility]2016-12-23 22:42:00 Test Item Value Reference Range Interpretation Comments Total Protein (test code = Total 8.5 6.4-8.4 Protein) [facility]2016-12-23 22:42:00 Test Item Value Reference Range Interpretation Comments Glucose Lvl (test code = Glucose Lvl) 106 70-99 [facility]2016-12-23 22:42:00 Test Item Value Reference Range Interpretation Comments Albumin Lvl (test code = Albumin Lvl) 3.0 3.5-5.0 [facility]2016-12-23 22:42:00 Test Item Value Reference Range Interpretation Comments Alk Phos (test code = Alk Phos) 83 39-136 [facility]UiqrlkzMMMBLOCOTWQPN9859-36-83 22:42:00 Test Item Value Reference Range Interpretation Comments S Preg (test code = S Negative *NA*(03/17/16 Preg) 4:42 PM) [facility] CenterPokaeqzVELXLZYATE7242-08-83 22:42:00 Test Item Value Reference Range Interpretation Comments MPV (test code = MPV) 8.6 7.4-10.4 [facility] CenterNfiqloaLGPIMXNZBF0935-58-91 22:42:00 Test Item Value Reference Range Interpretation Comments MCHC (test code = MCHC) 34.3 32.0-36.0 [facility] CenterCipjcasRLNLKTBYGC2503-08-80 22:42:00 Test Item Value Reference Range Interpretation Comments Platelet (test code = Platelet) 133 133-450 [facility] CenterQmbgiigROYYLCQHSY2188-12-81 22:42:00 Test Item Value Reference Range Interpretation Comments RDW (test code = RDW) 16.8 11.5-14.5 [facility] CenterFtajyeyVYRFLLLDZW0831-57-01 22:42:00 Test Item Value Reference Range Interpretation Comments MCH (test code = MCH) 28.7 pg 27.0-31.0 [facility] CenterSxlkiqtMDVWLSVPTX8822-98-12 22:42:00 Test Item Value Reference Range Interpretation Comments Hgb (test code = Hgb) 11.7 12.0-16.0 [facility] CenterAupjrscGBQJCDWPDD3100-01-91 22:42:00 Test Item Value Reference Range Interpretation Comments Hct (test code = Hct) 34.1 36.0-48.0 [facility] CenterXakfvnyUCGFFUCQAL8203-01-78 22:42:00 Test Item Value Reference Range Interpretation Comments WBC X 10x3 (test code = WBC X 10x3) 7.6 3.7-10.4 [facility] CenterIxyvxxsXEGACDMYVC3689-31-73 22:42:00 Test Item Value Reference Range Interpretation Comments MCV (test code = MCV) 83.6 80.0-98.0 [facility] CenterHrywypmQVNFGXAVUZ2397-65-55 22:42:00 Test Item Value Reference Range Interpretation Comments RBC X 10x6 (test code = RBC X 10x6) 4.08 4.20-5.40 [facility] CenterJdlxytmHRGXAQCDNW6670-69-94 22:42:00 Test Item Value Reference Range Interpretation Comments Eosinophils (test code = 0.6 See_Comment [A utomated message] The Eosinophils) system which ge nerated this result tra nsmitted reference range : <=4.0. The reference r nilam was not used to int erpret this result as normal/abnormal . [facility] CenterYkbxuxwZREEEOIUIF5532-93-84 22:42:00 Test Item Value Reference Range Interpretation Comments Lymphocytes (test code = Lymphocytes) 16.1 20.0-40.0 [facility] CenterImkwozjBJPUTIPSMB0259-86-38 22:42:00 Test Item Value Reference Range Interpretation Comments Monocytes (test code = Monocytes) 12.9 2.0-12.0 [facility] CenterSaysfazVTTFSBYRMR1225-55-53 22:42:00 Test Item Value Reference Range Interpretation Comments Segs-Bands # (test code = Segs-Bands #) 5.3 1.5-8.1 [facility] CenterGmcrurkMMHCJTWXBY4773-96-09 22:42:00 Test Item Value Reference Range Interpretation Comments Monocytes # (test code 1.0 See_Comment [Aut omated message] The = Monocytes #) system which generated this result tra nsmitted reference range : <=0.8. The reference r nilam was not used to int erpret this result as normal/abnormal . [facility] CenterFphvvqySHQKOQQRMN6087-56-54 22:42:00 Test Item Value Reference Range Interpretation Comments Lymphocytes # (test code = Lymphocytes 1.2 1.0-5.5 #) [facility] CenterYwaozyeOHLBAFQRBR7262-65-61 22:42:00 Test Item Value Reference Range Interpretation Comments Basophils (test code = 0.2 See_Comment [Aut omated message] The Basophils) system which ge nerated this result tra nsmitted reference range : <=1.0. The reference r nilam was not used to int erpret this result as normal/abnormal . [facility] CenterHdypkdiMSBBZKCWYB2546-02-69 22:42:00 Test Item Value Reference Range Interpretation Comments Segs (test code = Segs) 70.2 45.0-75.0 [facility] - XHGXGTXK5579-09-33 22:42:00 Test Item Value Reference Range Interpretation Comments Influ B (test code = Negative (03/17/16 4:42 Influ B) PM) [facility] - [id number] 22:42:00 Test Item Value Reference Range Interpretation Comments Influ A (test code = Negative (03/17/16 4:42 Influ A) PM) [facility] KEZXE9600-62-33 22:42:00 Test Item Value Reference Range Interpretation Comments Lipase Lvl (test code = Lipase Lvl) 193 73-393 [facility]2016-12-23 22:42:00 Test Item Value Reference Range Interpretation Comments A/G Ratio (test code = A/G Ratio) 0.5 0.7-1.6 [facility]2016-12-23 22:42:00 Test Item Value Reference Range Interpretation Comments AGAP (test code = AGAP) 11.4 10.0-20.0 [facility] [id number] 22:42:00 Test Item Value Reference Range Interpretation Comments Globulin (test code = Globulin) 5.5 2.7-4.2 [facility]2016-12-23 22:42:00 Test Item Value Reference Range Interpretation Comments B/C Ratio (test code = B/C Ratio) 7 6-25 [facility] [id number] 22:42:00 Test Item Value Reference Range Interpretation Comments eGFR (test code = eGFR) 100 [facility]2016-12-23 22:42:00 Test Item Value Reference Range Interpretation Comments ALANINE AMINOTRANSFERASE 65 See_Comment [A utomated message] (test code = ALANINE The sys tem which AMINOTRANSFERASE) generated this result transmitted ref erence range: <=65. Th e reference range was not used to int erpret this result as normal/abnormal . [facility]2016-12-23 22:42:00 Test Item Value Reference Range Interpretation Comments Potassium Lvl (test code = Potassium 3.4 3.5-5.1 Lvl) [facility]2016-12-23 22:42:00 Test Item Value Reference Range Interpretation Comments BUN (test code = BUN) 6 7-22 [facility]2016-12-23 22:42:00 Test Item Value Reference Range Interpretation Comments Sodium Lvl (test code = Sodium Lvl) 137 135-145 [facility]2016-12-23 22:42:00 Test Item Value Reference Range Interpretation Comments Creatinine Lvl (test code = Creatinine 0.85 0.50-1.40 Lvl) [facility]2016-12-23 22:42:00 Test Item Value Reference Range Interpretation Comments Bili Total (test code = Bili Total) 0.5 0.2-1.3 [facility]2016-12-23 22:42:00 Test Item Value Reference Range Interpretation Comments Chloride Lvl (test code = Chloride Lvl) 100 95-109 [facility]2016-12-23 22:42:00 Test Item Value Reference Range Interpretation Comments Calcium Lvl (test code = Calcium Lvl) 9.6 8.5-10.5 [facility]2016-12-23 22:42:00 Test Item Value Reference Range Interpretation Comments CO2 (test code = CO2) 29 24-32 [facility]2016-12-23 22:42:00 Test Item Value Reference Range Interpretation Comments ASPARTATE TRANSAMINASE 59 See_Comment [Aut omated message] (test code = ASPARTATE The s ystem which TRANSAMINASE) generated this result transmitted ref erence range: <=37. Th e reference range was not used to interpr et this result as normal/abnormal . [place] 188936-12-23 22:42:00 Test Item Value Reference Range Interpretation Comments Total Protein (test code = Total 8.5 6.4-8.4 Protein) [facility]2016-12-23 22:42:00 Test Item Value Reference Range Interpretation Comments Glucose Lvl (test code = Glucose Lvl) 106 70-99 [facility]2016-12-23 22:42:00 Test Item Value Reference Range Interpretation Comments Albumin Lvl (test code = Albumin Lvl) 3.0 3.5-5.0 [facility]2016-12-23 22:42:00 Test Item Value Reference Range Interpretation Comments Alk Phos (test code = Alk Phos) 83 39-136 [place] [id number] 22:42:00 Test Item Value Reference Range Interpretation Comments S Preg (test code = S Negative *NA*(03/17/16 Preg) 4:42 PM) [facility] CenterScirbfvVBCWDQEULT7437-00-36 22:42:00 Test Item Value Reference Range Interpretation Comments MPV (test code = MPV) 8.6 7.4-10.4 [place] 243556-12-23 22:42:00 Test Item Value Reference Range Interpretation Comments MCHC (test code = MCHC) 34.3 32.0-36.0 [facility] CenterZvfbvyfMZQJUWZKRT1136-61-41 22:42:00 Test Item Value Reference Range Interpretation Comments Platelet (test code = Platelet) 133 133-450 [facility] CenterZzcaamdXCJQBRBOYI3212-12-91 22:42:00 Test Item Value Reference Range Interpretation Comments RDW (test code = RDW) 16.8 11.5-14.5 [facility] CenterVjwcmrnPVSQVOZVPL3639-94-95 22:42:00 Test Item Value Reference Range Interpretation Comments MCH (test code = MCH) 28.7 pg 27.0-31.0 [facility] CenterZstswjrJOLBBNWHMN2291-94-78 22:42:00 Test Item Value Reference Range Interpretation Comments Hgb (test code = Hgb) 11.7 12.0-16.0 [place] 243556-12-23 22:42:00 Test Item Value Reference Range Interpretation Comments Hct (test code = Hct) 34.1 36.0-48.0 [facility] CenterLvvmkbxHTXGTACSID3022-31-87 22:42:00 Test Item Value Reference Range Interpretation Comments WBC X 10x3 (test code = WBC X 10x3) 7.6 3.7-10.4 [facility] CenterOsyyxccWYRNRQFOKM4626-01-27 22:42:00 Test Item Value Reference Range Interpretation Comments MCV (test code = MCV) 83.6 80.0-98.0 [facility] CenterRenuctcYBPQKAQGPB9504-58-97 22:42:00 Test Item Value Reference Range Interpretation Comments RBC X 10x6 (test code = RBC X 10x6) 4.08 4.20-5.40 [place] [address]-12-23 22:42:00 Test Item Value Reference Range Interpretation Comments Eosinophils (test code = 0.6 See_Comment [A utomated message] The Eosinophils) system which ge nerated this result tra nsmitted reference range : <=4.0. The reference r nilam was not used to int erpret this result as normal/abnormal . [facility] CenterZqkgepnDFLJXDCBJA0347-24-72 22:42:00 Test Item Value Reference Range Interpretation Comments Lymphocytes (test code = Lymphocytes) 16.1 20.0-40.0 [facility] CenterFridhabVNALVFZZTL7861-23-96 22:42:00 Test Item Value Reference Range Interpretation Comments Monocytes (test code = Monocytes) 12.9 2.0-12.0 [facility] CenterTsevzzmAYOVXIGRIO1165-42-10 22:42:00 Test Item Value Reference Range Interpretation Comments Segs-Bands # (test code = Segs-Bands #) 5.3 1.5-8.1 [facility] CenterIwilivzRBDLXDHIVJ9658-29-99 22:42:00 Test Item Value Reference Range Interpretation Comments Monocytes # (test code 1.0 See_Comment [Aut omated message] The = Monocytes #) system which generated this result tra nsmitted reference range : <=0.8. The reference r nilam was not used to int erpret this result as normal/abnormal . [facility] CenterUwtjzigPQLZJWKDDZ4183-68-28 22:42:00 Test Item Value Reference Range Interpretation Comments Lymphocytes # (test code = Lymphocytes 1.2 1.0-5.5 #) [facility] CenterZxnfeneLQJSQYMXVC6100-52-16 22:42:00 Test Item Value Reference Range Interpretation Comments Basophils (test code = 0.2 See_Comment [Aut omated message] The Basophils) system which ge nerated this result tra nsmitted reference range : <=1.0. The reference r nilam was not used to int erpret this result as normal/abnormal . [facility] CenterRtsichoIVMLWPSEBK4571-48-26 22:42:00 Test Item Value Reference Range Interpretation Comments Segs (test code = Segs) 70.2 45.0-75.0 [facility] [id number] 22:42:00 Test Item Value Reference Range Interpretation Comments Influ B (test code = Negative (03/17/16 4:42 Influ B) PM) [facility] [id number] 22:42:00 Test Item Value Reference Range Interpretation Comments Influ A (test code = Negative (03/17/16 4:42 Influ A) PM) [facility]2016-12-23 22:42:00 Test Item Value Reference Range Interpretation Comments Lipase Lvl (test code = Lipase Lvl) 193 73-393 [facility]2016-12-23 22:42:00 Test Item Value Reference Range Interpretation Comments A/G Ratio (test code = A/G Ratio) 0.5 0.7-1.6 [facility]2016-12-23 22:42:00 Test Item Value Reference Range Interpretation Comments AGAP (test code = AGAP) 11.4 10.0-20.0 [facility]2016-12-23 22:42:00 Test Item Value Reference Range Interpretation Comments Globulin (test code = Globulin) 5.5 2.7-4.2 [facility]2016-12-23 22:42:00 Test Item Value Reference Range Interpretation Comments B/C Ratio (test code = B/C Ratio) 7 6-25 [facility]2016-12-23 22:42:00 Test Item Value Reference Range Interpretation Comments eGFR (test code = eGFR) 100 [facility]2016-12-23 22:42:00 Test Item Value Reference Range Interpretation Comments ALANINE AMINOTRANSFERASE 65 See_Comment [A utomated message] (test code = ALANINE The sys tem which AMINOTRANSFERASE) generated this result transmitted ref erence range: <=65. Th e reference range was not used to int erpret this result as normal/abnormal . [facility] [id number] 22:42:00 Test Item Value Reference Range Interpretation Comments Potassium Lvl (test code = Potassium 3.4 3.5-5.1 Lvl) [facility]2016-12-23 22:42:00 Test Item Value Reference Range Interpretation Comments BUN (test code = BUN) 6 7-22 [facility]2016-12-23 22:42:00 Test Item Value Reference Range Interpretation Comments Sodium Lvl (test code = Sodium Lvl) 137 135-145 [facility]2016-12-23 22:42:00 Test Item Value Reference Range Interpretation Comments Creatinine Lvl (test code = Creatinine 0.85 0.50-1.40 Lvl) [facility]2016-12-23 22:42:00 Test Item Value Reference Range Interpretation Comments Bili Total (test code = Bili Total) 0.5 0.2-1.3 [facility]2016-12-23 22:42:00 Test Item Value Reference Range Interpretation Comments Chloride Lvl (test code = Chloride Lvl) 100 95-109 [facility]2016-12-23 22:42:00 Test Item Value Reference Range Interpretation Comments Calcium Lvl (test code = Calcium Lvl) 9.6 8.5-10.5 [facility]2016-12-23 22:42:00 Test Item Value Reference Range Interpretation Comments CO2 (test code = CO2) 29 24-32 [facility]2016-12-23 22:42:00 Test Item Value Reference Range Interpretation Comments ASPARTATE TRANSAMINASE 59 See_Comment [Aut omated message] (test code = ASPARTATE The s ystem which TRANSAMINASE) generated this result transmitted ref erence range: <=37. Th e reference range was not used to interpr et this result as normal/abnormal . [facility]2016-12-23 22:42:00 Test Item Value Reference Range Interpretation Comments Total Protein (test code = Total 8.5 6.4-8.4 Protein) [facility]2016-12-23 22:42:00 Test Item Value Reference Range Interpretation Comments Glucose Lvl (test code = Glucose Lvl) 106 70-99 [facility]2016-12-23 22:42:00 Test Item Value Reference Range Interpretation Comments Albumin Lvl (test code = Albumin Lvl) 3.0 3.5-5.0 [facility]2016-12-23 22:42:00 Test Item Value Reference Range Interpretation Comments Alk Phos (test code = Alk Phos) 83 39-136 [place] [id number] 22:42:00 Test Item Value Reference Range Interpretation Comments S Preg (test code = S Negative *NA*(03/17/16 Preg) 4:42 PM) [facility]AletpkrWREYUWHEOU5867-24-50 22:42:00 Test Item Value Reference Range Interpretation Comments MPV (test code = MPV) 8.6 7.4-10.4 [facility] CenterDmsofpsMGDIPYOMJP7696-94-36 22:42:00 Test Item Value Reference Range Interpretation Comments MCHC (test code = MCHC) 34.3 32.0-36.0 [facility] CenterHirewmoONEOCTVPVM3036-44-35 22:42:00 Test Item Value Reference Range Interpretation Comments Platelet (test code = Platelet) 133 133-450 [facility] CenterRfdlleeZRYDUEXBMD2087-30-38 22:42:00 Test Item Value Reference Range Interpretation Comments RDW (test code = RDW) 16.8 11.5-14.5 [facility] CenterUzmlswbHSMZWOPQEC7525-41-16 22:42:00 Test Item Value Reference Range Interpretation Comments MCH (test code = MCH) 28.7 pg 27.0-31.0 [facility] CenterQfeptqwLCQLILHJEN6984-86-43 22:42:00 Test Item Value Reference Range Interpretation Comments Hgb (test code = Hgb) 11.7 12.0-16.0 [facility] CenterPlobznuTLQYUMFFGV7273-99-46 22:42:00 Test Item Value Reference Range Interpretation Comments Hct (test code = Hct) 34.1 36.0-48.0 [facility] CenterIyfqhjtCVOGZUJXPL2671-45-05 22:42:00 Test Item Value Reference Range Interpretation Comments WBC X 10x3 (test code = WBC X 10x3) 7.6 3.7-10.4 [facility] CenterUywyvjfFXOINBLKBZ6879-32-40 22:42:00 Test Item Value Reference Range Interpretation Comments MCV (test code = MCV) 83.6 80.0-98.0 [facility] CenterVqqbugdHVTPSZVYWH7602-26-51 22:42:00 Test Item Value Reference Range Interpretation Comments RBC X 10x6 (test code = RBC X 10x6) 4.08 4.20-5.40 [facility] CenterNenxcawYTLCFYWTDQ2048-04-94 22:42:00 Test Item Value Reference Range Interpretation Comments Eosinophils (test code = 0.6 See_Comment [A utomated message] The Eosinophils) system which ge nerated this result tra nsmitted reference range : <=4.0. The reference r nilam was not used to int erpret this result as normal/abnormal . [facility] CenterTuclydzIVYISSFRHA7981-92-10 22:42:00 Test Item Value Reference Range Interpretation Comments Lymphocytes (test code = Lymphocytes) 16.1 20.0-40.0 [facility] CenterStdoqubLRDEVTQNGM2131-67-35 22:42:00 Test Item Value Reference Range Interpretation Comments Monocytes (test code = Monocytes) 12.9 2.0-12.0 [facility] CenterCvzndtoXQJGGAEZCQ6859-33-70 22:42:00 Test Item Value Reference Range Interpretation Comments Segs-Bands # (test code = Segs-Bands #) 5.3 1.5-8.1 [facility] CenterFnjiogpRVCMVQRQUE5777-72-12 22:42:00 Test Item Value Reference Range Interpretation Comments Monocytes # (test code 1.0 See_Comment [Aut omated message] The = Monocytes #) system which generated this result tra nsmitted reference range : <=0.8. The reference r nilam was not used to int erpret this result as normal/abnormal . [facility] CenterEnurcwlQOAXXPCCLQ1163-02-58 22:42:00 Test Item Value Reference Range Interpretation Comments Lymphocytes # (test code = Lymphocytes 1.2 1.0-5.5 #) [facility] CenterWogdvssLHXKLXXWAK0340-09-39 22:42:00 Test Item Value Reference Range Interpretation Comments Basophils (test code = 0.2 See_Comment [Aut omated message] The Basophils) system which ge nerated this result tra nsmitted reference range : <=1.0. The reference r nilam was not used to int erpret this result as normal/abnormal . [facility] CenterUumnusoDRLGIWQQSZ0974-53-86 22:42:00 Test Item Value Reference Range Interpretation Comments Segs (test code = Segs) 70.2 45.0-75.0 [facility] - [id number] 22:42:00 Test Item Value Reference Range Interpretation Comments Influ B (test code = Negative (03/17/16 4:42 Influ B) PM) [facility] - [id number] 22:42:00 Test Item Value Reference Range Interpretation Comments Influ A (test code = Negative (03/17/16 4:42 Influ A) PM) [facility] [id number] 22:42:00 Test Item Value Reference Range Interpretation Comments Lipase Lvl (test code = Lipase Lvl) 193 73-393 [facility] [id number] 22:42:00 Test Item Value Reference Range Interpretation Comments A/G Ratio (test code = A/G Ratio) 0.5 0.7-1.6 [facility] [id number] 22:42:00 Test Item Value Reference Range Interpretation Comments AGAP (test code = AGAP) 11.4 10.0-20.0 [facility]2016-12-23 22:42:00 Test Item Value Reference Range Interpretation Comments Globulin (test code = Globulin) 5.5 2.7-4.2 [facility]2016-12-23 22:42:00 Test Item Value Reference Range Interpretation Comments B/C Ratio (test code = B/C Ratio) 7 6-25 [facility]2016-12-23 22:42:00 Test Item Value Reference Range Interpretation Comments eGFR (test code = eGFR) 100 [facility]2016-12-23 22:42:00 Test Item Value Reference Range Interpretation Comments ALANINE AMINOTRANSFERASE 65 See_Comment [A utomated message] (test code = ALANINE The sys tem which AMINOTRANSFERASE) generated this result transmitted ref erence range: <=65. Th e reference range was not used to int erpret this result as normal/abnormal . [facility] HospitalCliq [id number] 22:42:00 Test Item Value Reference Range Interpretation Comments Potassium Lvl (test code = Potassium 3.4 3.5-5.1 Lvl) [facility]2016-12-23 22:42:00 Test Item Value Reference Range Interpretation Comments BUN (test code = BUN) 6 7-22 [facility]2016-12-23 22:42:00 Test Item Value Reference Range Interpretation Comments Sodium Lvl (test code = Sodium Lvl) 137 135-145 [facility] [id number] 22:42:00 Test Item Value Reference Range Interpretation Comments Creatinine Lvl (test code = Creatinine 0.85 0.50-1.40 Lvl) [facility]2016-12-23 22:42:00 Test Item Value Reference Range Interpretation Comments Bili Total (test code = Bili Total) 0.5 0.2-1.3 [facility]2016-12-23 22:42:00 Test Item Value Reference Range Interpretation Comments Chloride Lvl (test code = Chloride Lvl) 100 95-109 [facility]2016-12-23 22:42:00 Test Item Value Reference Range Interpretation Comments Calcium Lvl (test code = Calcium Lvl) 9.6 8.5-10.5 [facility]2016-12-23 22:42:00 Test Item Value Reference Range Interpretation Comments CO2 (test code = CO2) 29 24-32 [facility]2016-12-23 22:42:00 Test Item Value Reference Range Interpretation Comments ASPARTATE TRANSAMINASE 59 See_Comment [Aut omated message] (test code = ASPARTATE The s ystem which TRANSAMINASE) generated this result transmitted ref erence range: <=37. Th e reference range was not used to interpr et this result as normal/abnormal . [facility]2016-12-23 22:42:00 Test Item Value Reference Range Interpretation Comments Total Protein (test code = Total 8.5 6.4-8.4 Protein) [facility]2016-12-23 22:42:00 Test Item Value Reference Range Interpretation Comments Glucose Lvl (test code = Glucose Lvl) 106 70-99 [facility]2016-12-23 22:42:00 Test Item Value Reference Range Interpretation Comments Albumin Lvl (test code = Albumin Lvl) 3.0 3.5-5.0 [facility]2016-12-23 22:42:00 Test Item Value Reference Range Interpretation Comments Alk Phos (test code = Alk Phos) 83 39-136 [facility]ownYwqkyqqIEZBGVGZPNVXF9583-91-94 22:42:00 Test Item Value Reference Range Interpretation Comments S Preg (test code = S Negative *NA*(03/17/16 Preg) 4:42 PM) [facility]JE9221[facility] 22:42:00 Test Item Value Reference Range Interpretation Comments MPV (test code = MPV) 8.6 7.4-10.4 [facility] CenterSknpfndJDDTJCZEKN2246-54-49 22:42:00 Test Item Value Reference Range Interpretation Comments MCHC (test code = MCHC) 34.3 32.0-36.0 [facility] CenterMgfpgsgRYJLPUSZSS4820-06-31 22:42:00 Test Item Value Reference Range Interpretation Comments Platelet (test code = Platelet) 133 133-450 [facility] CenterVwgnhpzUMMGTNNIOA0059-39-53 22:42:00 Test Item Value Reference Range Interpretation Comments RDW (test code = RDW) 16.8 11.5-14.5 [facility] CenterTofygoyRUSPGMKKGD7981-65-65 22:42:00 Test Item Value Reference Range Interpretation Comments MCH (test code = MCH) 28.7 pg 27.0-31.0 [facility] CenterQhimqfgVLPUVGFFUK0691-92-51 22:42:00 Test Item Value Reference Range Interpretation Comments Hgb (test code = Hgb) 11.7 12.0-16.0 [facility] CenterXcszlngWPWLRWOMLM1381-16-74 22:42:00 Test Item Value Reference Range Interpretation Comments Hct (test code = Hct) 34.1 36.0-48.0 [facility] CenterKipasqcEDBZSGIOEY2895-82-18 22:42:00 Test Item Value Reference Range Interpretation Comments WBC X 10x3 (test code = WBC X 10x3) 7.6 3.7-10.4 [facility] CenterJubrgryMGKASKVMJN7347-16-53 22:42:00 Test Item Value Reference Range Interpretation Comments MCV (test code = MCV) 83.6 80.0-98.0 [facility] CenterAhhqvuzMZYVSZQIUF8461-06-17 22:42:00 Test Item Value Reference Range Interpretation Comments RBC X 10x6 (test code = RBC X 10x6) 4.08 4.20-5.40 [facility] CenterSrjsgkkVSGJCVJBWA4832-82-33 22:42:00 Test Item Value Reference Range Interpretation Comments Eosinophils (test code = 0.6 See_Comment [A utomated message] The Eosinophils) system which ge nerated this result tra nsmitted reference range : <=4.0. The reference r nilam was not used to int erpret this result as normal/abnormal . [facility] CenterTvguanuNRZJTORGPF6511-57-72 22:42:00 Test Item Value Reference Range Interpretation Comments Lymphocytes (test code = Lymphocytes) 16.1 20.0-40.0 [facility] CenterOnosevpOELJBFLUYX2402-54-40 22:42:00 Test Item Value Reference Range Interpretation Comments Monocytes (test code = Monocytes) 12.9 2.0-12.0 [facility] CenterUgdntsuEEEMTABZOO0893-74-49 22:42:00 Test Item Value Reference Range Interpretation Comments Segs-Bands # (test code = Segs-Bands #) 5.3 1.5-8.1 [facility] CenterKnibxeqVONWUSABOP3217-47-17 22:42:00 Test Item Value Reference Range Interpretation Comments Monocytes # (test code 1.0 See_Comment [Aut omated message] The = Monocytes #) system which generated this result tra nsmitted reference range : <=0.8. The reference r nilam was not used to int erpret this result as normal/abnormal . [facility] CenterTckoxlxDJXXCGTUTK9989-07-52 22:42:00 Test Item Value Reference Range Interpretation Comments Lymphocytes # (test code = Lymphocytes 1.2 1.0-5.5 #) [facility] CenterGevqkstPTPRSXNVDB1739-15-05 22:42:00 Test Item Value Reference Range Interpretation Comments Basophils (test code = 0.2 See_Comment [Aut omated message] The Basophils) system which ge nerated this result tra nsmitted reference range : <=1.0. The reference r nilam was not used to int erpret this result as normal/abnormal . [facility] CenterHwekzusGRSAEMQWUR1618-00-95 22:42:00 Test Item Value Reference Range Interpretation Comments Segs (test code = Segs) 70.2 45.0-75.0 [facility] ZYJLXKXE4874-53-83 22:42:00 Test Item Value Reference Range Interpretation Comments Influ B (test code = Negative (03/17/16 4:42 Influ B) PM) [facility] WLHTIDKV7391-29-40 22:42:00 Test Item Value Reference Range Interpretation Comments Influ A (test code = Negative (03/17/16 4:42 Influ A) PM) [facility] [id number] 11:10:00 Test Item Value Reference Range Interpretation Comments % Satur Fe (test code = % Satur Fe) 6 12-57 [facility] [id number] 11:10:00 Test Item Value Reference Range Interpretation Comments TIBC (test code = TIBC) 478 228-428 [facility]2016-01-14 11:10:00 Test Item Value Reference Range Interpretation Comments UIBC (test code = UIBC) 448 110-370 [facility]2016-01-14 11:10:00 Test Item Value Reference Range Interpretation Comments Iron (test code = Iron) 30 30-160 [facility]2016-01-14 11:10:00 Test Item Value Reference Range Interpretation Comments Ferritin Lvl (test code = Ferritin Lvl) 5 5-204 [facility]2016-01-14 11:10:00 Test Item Value Reference Range Interpretation Comments CK MB (test code = CK MB) 0.7 0.5-3.6 [facility]2016-01-14 11:10:00 Test Item Value Reference Range Interpretation Comments Total CK (test code = Total CK) 217 12-191 [facility]2016-01-14 11:10:00 Test Item Value Reference Range Interpretation Comments CK MB Index (test 0.3 See_Comment [Automate d message] The code = CK MB Index) system w [employer] generated this result transmit kuldip reference range : <=2.5. The reference range was not used to interpr et this result as abiodun l/abnormal. [facility] [id number] 11:10:00 Test Item Value Reference Range Interpretation Comments eGFR (test code = eGFR) 132 [facility] [id number] 11:10:00 Test Item Value Reference Range Interpretation Comments AST (test code = AST) 39 See_Comment [Auto mated message] The system which ge nerated this result transmit kuldip reference range : <=37. The reference range was not used to interpr et this result as abiodun l/abnormal. [facility] [id number] 11:10:00 Test Item Value Reference Range Interpretation Comments Alk Phos (test code = Alk Phos) 91 39-136 [facility] [id number] 11:10:00 Test Item Value Reference Range Interpretation Comments ALT (test code = ALT) 25 See_Comment [Auto mated message] The system which ge nerated this result transmit kuldip reference range : <=65. The reference range was not used to interpr et this result as abiodun l/abnormal. [facility]2016-01-14 11:10:00 Test Item Value Reference Range Interpretation Comments Bili Total (test code = Bili Total) 0.4 0.2-1.3 [facility]2016-01-14 11:10:00 Test Item Value Reference Range Interpretation Comments Calcium Lvl (test code = Calcium Lvl) 9.4 8.5-10.5 [facility]2016-01-14 11:10:00 Test Item Value Reference Range Interpretation Comments B/C Ratio (test code = B/C Ratio) 13 -25 [facility]2016-01-14 11:10:00 Test Item Value Reference Range Interpretation Comments AGAP (test code = AGAP) 15.2 10.0-20.0 [facility]2016-01-14 11:10:00 Test Item Value Reference Range Interpretation Comments CO2 (test code = CO2) 21 -32 [facility]2016-01-14 11:10:00 Test Item Value Reference Range Interpretation Comments A/G Ratio (test code = A/G Ratio) 0.5 0.7-1.6 [facility]2016-01-14 11:10:00 Test Item Value Reference Range Interpretation Comments Globulin (test code = Globulin) 5.0 2.0-4.0 [facility]2016-01-14 11:10:00 Test Item Value Reference Range Interpretation Comments Total Protein (test code = Total 7.7 6.4-8.4 Protein) [facility]2016-01-14 11:10:00 Test Item Value Reference Range Interpretation Comments Albumin Lvl (test code = Albumin Lvl) 2.7 3.5-5.0 [facility]2016-01-14 11:10:00 Test Item Value Reference Range Interpretation Comments BUN (test code = BUN) 8 - [facility]2016-01-14 11:10:00 Test Item Value Reference Range Interpretation Comments Glucose Lvl (test code = Glucose Lvl) 86 70-99 [facility]2016-01-14 11:10:00 Test Item Value Reference Range Interpretation Comments Creatinine Lvl (test code = Creatinine 0.60 0.50-1.40 Lvl) [facility]2016-01-14 11:10:00 Test Item Value Reference Range Interpretation Comments Sodium Lvl (test code = Sodium Lvl) 138 135-145 [facility]2016-01-14 11:10:00 Test Item Value Reference Range Interpretation Comments Chloride Lvl (test code = Chloride Lvl) 106 95-109 [facility]2016-01-14 11:10:00 Test Item Value Reference Range Interpretation Comments Potassium Lvl (test code = Potassium 4.2 3.5-5.1 Lvl) [facility] CenterExccafyABFRJMPVLV1410-76-19 11:10:00 Test Item Value Reference Range Interpretation Comments Polychrom (test code = Moderate *ABN*(04/08/15 Polychrom) 5:10 AM) [facility] CenterRmimcjvVGHVOHWHSF7689-89-84 11:10:00 Test Item Value Reference Range Interpretation Comments Microcyte (test code = 2+ *ABN*(04/08/15 Microcyte) 5:10 AM) [facility] CenterNvazifnUBRTIRHCYC4687-45-82 11:10:00 Test Item Value Reference Range Interpretation Comments Basophils # (test code 0.0 See_Comment [Aut omated message] The = Basophils #) system which generated this result tra nsmitted reference range : <=0.2. The reference r nilam was not used to int erpret this result as normal/abnormal . [facility] CenterZtnkxkbCCDCVLQATG3399-97-24 11:10:00 Test Item Value Reference Range Interpretation Comments Plt Morph (test code = Normal (04/08/15 5:10 Plt Morph) AM) [facility] CenterIdyckkzMQCCIAVCKE3443-38-08 11:10:00 Test Item Value Reference Range Interpretation Comments Lymphocytes # (test code = Lymphocytes 1.8 1.0-5.5 #) [facility] CenterGpwfcvbLNIFTHIVKC7933-09-58 11:10:00 Test Item Value Reference Range Interpretation Comments Segs-Bands # (test code = Segs-Bands #) 3.0 1.5-8.1 [facility] CenterLlpkafhNUWXGMGTPL2772-95-09 11:10:00 Test Item Value Reference Range Interpretation Comments Monocytes # (test code 0.4 See_Comment [Aut omated message] The = Monocytes #) system which generated this result tra nsmitted reference range : <=0.8. The reference r nilam was not used to int erpret this result as normal/abnormal . [facility] CenterNlkbervAFVEMKIJQK6684-14-30 11:10:00 Test Item Value Reference Range Interpretation Comments Eosinophils # (test code 0.1 See_Comment [A utomated message] The = Eosinophils #) system whic h generated this result tra nsmitted reference range : <=0.5. The reference r nilam was not used to int erpret this result as normal/abnormal . [facility] CenterOuutinmRCVXJOKWEM7411-98-13 11:10:00 Test Item Value Reference Range Interpretation Comments Monocytes (test code = Monocytes) 7.0 2.0-12.0 [facility] CenterRagrxemUBCDETRUNU6280-04-07 11:10:00 Test Item Value Reference Range Interpretation Comments Segs (test code = Segs) 56.2 45.0-75.0 [facility] CenterZlezdysXAKSESYMDU5424-14-97 11:10:00 Test Item Value Reference Range Interpretation Comments Eosinophils (test code = 2.0 See_Comment [A utomated message] The Eosinophils) system which ge nerated this result tra nsmitted reference range : <=4.0. The reference r nilam was not used to int erpret this result as normal/abnormal . [facility] CenterUvaehbaGZYPFETKLV9831-51-49 11:10:00 Test Item Value Reference Range Interpretation Comments Lymphocytes (test code = Lymphocytes) 34.2 20.0-40.0 [facility] CenterZwdclbqBYGRTDTPEK2389-21-08 11:10:00 Test Item Value Reference Range Interpretation Comments Basophils (test code = 0.6 See_Comment [Aut omated message] The Basophils) system which ge nerated this result tra nsmitted reference range : <=1.0. The reference r nilam was not used to int erpret this result as normal/abnormal . [facility] CenterTdypyoiWLACXRYMWH9352-45-57 11:10:00 Test Item Value Reference Range Interpretation Comments MPV (test code = MPV) 8.3 7.4-10.4 [facility] CenterUnxjwyaXTGUWUDVKM0707-96-86 11:10:00 Test Item Value Reference Range Interpretation Comments Platelet (test code = Platelet) 291 133-450 [facility] CenterMhukcieQGERPMCDZE5526-63-57 11:10:00 Test Item Value Reference Range Interpretation Comments RDW (test code = RDW) 17.7 11.5-14.5 [facility] CenterDtrlnytCILMHRXOJM1305-81-11 11:10:00 Test Item Value Reference Range Interpretation Comments MCHC (test code = MCHC) 30.4 32.0-36.0 [facility] CenterWitvsgfQAZYRIZVGN5055-59-83 11:10:00 Test Item Value Reference Range Interpretation Comments MCH (test code = MCH) 21.9 pg 27.0-31.0 [facility] CenterUyscprsLIWCFOGCMH4409-58-07 11:10:00 Test Item Value Reference Range Interpretation Comments RBC (test code = RBC) 3.99 4.20-5.40 [facility]NftywwdQYGTDLHPBE7614-48-19 11:10:00 Test Item Value Reference Range Interpretation Comments WBC (test code = WBC) 5.4 3.7-10.4 [facility] CenterAaliheqNQIIMYVXMR7160-29-74 11:10:00 Test Item Value Reference Range Interpretation Comments MCV (test code = MCV) 72.1 80.0-98.0 [facility] CenterTypnlgxEWGISTHVDA5559-43-31 11:10:00 Test Item Value Reference Range Interpretation Comments Hgb (test code = Hgb) 8.8 12.0-16.0 [facility] CenterFygkwhmQTGCVTRWIC9006-99-16 11:10:00 Test Item Value Reference Range Interpretation Comments Hct (test code = Hct) 28.8 36.0-48.0 [facility]AllenEohuhbjZYBRCK1563-39-05 11:10:00 Test Item Value Reference Range Interpretation Comments CHD Risk (test code = CHD Risk) 3.45 3.90-5.80 [facility]AllenIlkykqxEVRDBA5457-31-88 11:10:00 Test Item Value Reference Range Interpretation Comments HDL (test code = HDL) 53 [facility] McAllenXzykyljYUKKVJ3748-20-98 11:10:00 Test Item Value Reference Range Interpretation Comments LDL (Calculated) (test code = LDL 106 (Calculated)) [facility] McAllenHyfaborKCEWGT1766-64-72 11:10:00 Test Item Value Reference Range Interpretation Comments Trig (test code = Trig) 121 [facility] McAllenSixditlBFUQUX4949-86-23 11:10:00 Test Item Value Reference Range Interpretation Comments Chol (test code = Chol) 183 [facility] McAllenOyxywbhARATCK3561-44-84 11:10:00 Test Item Value Reference Range Interpretation Comments VLDL (test code = VLDL) 24 [facility]2016-01-14 11:10:00 Test Item Value Reference Range Interpretation Comments % Satur Fe (test code = % Satur Fe) 6 12-57 [facility] DVHTT3167-99-20 11:10:00 Test Item Value Reference Range Interpretation Comments TIBC (test code = TIBC) 478 228-428 [facility]2016-01-14 11:10:00 Test Item Value Reference Range Interpretation Comments UIBC (test code = UIBC) 448 110-370 [facility]2016-01-14 11:10:00 Test Item Value Reference Range Interpretation Comments Iron (test code = Iron) 30 30-160 [facility]2016-01-14 11:10:00 Test Item Value Reference Range Interpretation Comments Ferritin Lvl (test code = Ferritin Lvl) 5 5-204 [facility]inteHeal[facility] PICOODX8121-09-53 11:10:00 Test Item Value Reference Range Interpretation Comments CK MB (test code = CK MB) 0.7 0.5-3.6 [facility]inteNew [place] DesignsCOM[facility] DDVDYVX2612-85-34 11:10:00 Test Item Value Reference Range Interpretation Comments Total CK (test code = Total CK) 217 12-191 [facility]inteHeal[facility] NPURPUH5103-24-45 11:10:00 Test Item Value Reference Range Interpretation Comments CK MB Index (test 0.3 See_Comment [Automate d message] The code = CK MB Index) system w [employer] generated this result transmit kuldip reference range : <=2.5. The reference range was not used to interpr et this result as abiodun l/abnormal. [facility] 250ok2016-01-14 11:10:00 Test Item Value Reference Range Interpretation Comments eGFR (test code = eGFR) 132 [facility] [employer] YNSNI2502-33-54 11:10:00 Test Item Value Reference Range Interpretation Comments AST (test code = AST) 39 See_Comment [Auto mated message] The system which ge nerated this result transmit kuldip reference range : <=37. The reference range was not used to interpr et this result as abiodun l/abnormal. [facility] 250ok2016-01-14 11:10:00 Test Item Value Reference Range Interpretation Comments Alk Phos (test code = Alk Phos) 91 39-136 [facility]2016-01-14 11:10:00 Test Item Value Reference Range Interpretation Comments ALT (test code = ALT) 25 See_Comment [Auto mated message] The system which ge nerated this result transmit kuldip reference range : <=65. The reference range was not used to interpr et this result as abiodun l/abnormal. [facility]2016-01-14 11:10:00 Test Item Value Reference Range Interpretation Comments Bili Total (test code = Bili Total) 0.4 0.2-1.3 [facility]2016-01-14 11:10:00 Test Item Value Reference Range Interpretation Comments Calcium Lvl (test code = Calcium Lvl) 9.4 8.5-10.5 [facility]2016-01-14 11:10:00 Test Item Value Reference Range Interpretation Comments B/C Ratio (test code = B/C Ratio) 13 6-25 [facility]2016-01-14 11:10:00 Test Item Value Reference Range Interpretation Comments AGAP (test code = AGAP) 15.2 10.0-20.0 [facility]2016-01-14 11:10:00 Test Item Value Reference Range Interpretation Comments CO2 (test code = CO2) 21 24-32 [facility]2016-01-14 11:10:00 Test Item Value Reference Range Interpretation Comments A/G Ratio (test code = A/G Ratio) 0.5 0.7-1.6 [facility]2016-01-14 11:10:00 Test Item Value Reference Range Interpretation Comments Globulin (test code = Globulin) 5.0 2.0-4.0 [facility]2016-01-14 11:10:00 Test Item Value Reference Range Interpretation Comments Total Protein (test code = Total 7.7 6.4-8.4 Protein) [facility]2016-01-14 11:10:00 Test Item Value Reference Range Interpretation Comments Albumin Lvl (test code = Albumin Lvl) 2.7 3.5-5.0 [facility]2016-01-14 11:10:00 Test Item Value Reference Range Interpretation Comments BUN (test code = BUN) 8 7-22 [facility]2016-01-14 11:10:00 Test Item Value Reference Range Interpretation Comments Glucose Lvl (test code = Glucose Lvl) 86 70-99 [facility]2016-01-14 11:10:00 Test Item Value Reference Range Interpretation Comments Creatinine Lvl (test code = Creatinine 0.60 0.50-1.40 Lvl) [facility]2016-01-14 11:10:00 Test Item Value Reference Range Interpretation Comments Sodium Lvl (test code = Sodium Lvl) 138 135-145 [facility]2016-01-14 11:10:00 Test Item Value Reference Range Interpretation Comments Chloride Lvl (test code = Chloride Lvl) 106 95-109 [facility]2016-01-14 11:10:00 Test Item Value Reference Range Interpretation Comments Potassium Lvl (test code = Potassium 4.2 3.5-5.1 Lvl) [facility] CenterHcbqzdzEFDDFZEMDH2222-84-66 11:10:00 Test Item Value Reference Range Interpretation Comments Polychrom (test code = Moderate *ABN*(04/08/15 Polychrom) 5:10 AM) [facility] CenterBekxdbeUGOJENKVRF4132-34-86 11:10:00 Test Item Value Reference Range Interpretation Comments Microcyte (test code = 2+ *ABN*(04/08/15 Microcyte) 5:10 AM) [facility] CenterOlwkelsMHUDLMMYEN1178-24-74 11:10:00 Test Item Value Reference Range Interpretation Comments Basophils # (test code 0.0 See_Comment [Aut omated message] The = Basophils #) system which generated this result tra nsmitted reference range : <=0.2. The reference r nilam was not used to int erpret this result as normal/abnormal . [facility] CenterHscfdfjFMXFGRVLXR6259-94-10 11:10:00 Test Item Value Reference Range Interpretation Comments Plt Morph (test code = Normal (04/08/15 5:10 Plt Morph) AM) [facility] CenterVxxqkqqVAAIBBQYDM1165-45-89 11:10:00 Test Item Value Reference Range Interpretation Comments Lymphocytes # (test code = Lymphocytes 1.8 1.0-5.5 #) [facility] CenterNyvzqqpMODRTJPXEY1435-65-56 11:10:00 Test Item Value Reference Range Interpretation Comments Segs-Bands # (test code = Segs-Bands #) 3.0 1.5-8.1 [facility] CenterDmogpgsBNHQERAOXZ7860-17-47 11:10:00 Test Item Value Reference Range Interpretation Comments Monocytes # (test code 0.4 See_Comment [Aut omated message] The = Monocytes #) system which generated this result tra nsmitted reference range : <=0.8. The reference r nilam was not used to int erpret this result as normal/abnormal . [facility] CenterHrwlgvaNSSBRZIOSD6148-46-07 11:10:00 Test Item Value Reference Range Interpretation Comments Eosinophils # (test code 0.1 See_Comment [A utomated message] The = Eosinophils #) system whic h generated this result tra nsmitted reference range : <=0.5. The reference r nilam was not used to int erpret this result as normal/abnormal . [facility] CenterNljgpghHUEXQVJPFD6549-24-19 11:10:00 Test Item Value Reference Range Interpretation Comments Monocytes (test code = Monocytes) 7.0 2.0-12.0 [facility] CenterWbvykirTYGUQIRCFL5713-03-72 11:10:00 Test Item Value Reference Range Interpretation Comments Segs (test code = Segs) 56.2 45.0-75.0 [facility] CenterMglmfrvYCNYIXCYOI0505-83-90 11:10:00 Test Item Value Reference Range Interpretation Comments Eosinophils (test code = 2.0 See_Comment [A utomated message] The Eosinophils) system which ge nerated this result tra nsmitted reference range : <=4.0. The reference r nilam was not used to int erpret this result as normal/abnormal . [facility] CenterFjwlkduWELSVHPXNM3166-16-22 11:10:00 Test Item Value Reference Range Interpretation Comments Lymphocytes (test code = Lymphocytes) 34.2 20.0-40.0 [facility] CenterQgpvkaySVKRKVRKNO3841-10-91 11:10:00 Test Item Value Reference Range Interpretation Comments Basophils (test code = 0.6 See_Comment [Aut omated message] The Basophils) system which ge nerated this result tra nsmitted reference range : <=1.0. The reference r nilam was not used to int erpret this result as normal/abnormal . [facility] CenterHxelwieVDLHKSHVNG5980-79-00 11:10:00 Test Item Value Reference Range Interpretation Comments MPV (test code = MPV) 8.3 7.4-10.4 [facility] CenterQpcazmcAKQYGPYWHA0092-97-83 11:10:00 Test Item Value Reference Range Interpretation Comments Platelet (test code = Platelet) 291 133-450 [facility] CenterEcjbhnyJAOAZYNIPC6787-34-17 11:10:00 Test Item Value Reference Range Interpretation Comments RDW (test code = RDW) 17.7 11.5-14.5 [facility] CenterOytpethZGEQSKWFHD6671-36-13 11:10:00 Test Item Value Reference Range Interpretation Comments MCHC (test code = MCHC) 30.4 32.0-36.0 [facility] CenterPcdcnenKFXOBGISAT8390-87-73 11:10:00 Test Item Value Reference Range Interpretation Comments MCH (test code = MCH) 21.9 pg 27.0-31.0 [facility] CenterCzpjhvfUJUJMUZQGW6158-14-91 11:10:00 Test Item Value Reference Range Interpretation Comments RBC (test code = RBC) 3.99 4.20-5.40 [facility] CenterRvgmntjLQFPBYGIYI7291-63-83 11:10:00 Test Item Value Reference Range Interpretation Comments WBC (test code = WBC) 5.4 3.7-10.4 [facility] CenterOnsbckjEMWMSJDMVM4418-29-46 11:10:00 Test Item Value Reference Range Interpretation Comments MCV (test code = MCV) 72.1 80.0-98.0 [facility] CenterYhhvlesZDGYXXWZUD2817-33-46 11:10:00 Test Item Value Reference Range Interpretation Comments Hgb (test code = Hgb) 8.8 12.0-16.0 [facility] CenterLtothqhQVNGSJBHNY4016-87-15 11:10:00 Test Item Value Reference Range Interpretation Comments Hct (test code = Hct) 28.8 36.0-48.0 [facility]AllenUzydkkxZZSNAF7557-76-20 11:10:00 Test Item Value Reference Range Interpretation Comments CHD Risk (test code = CHD Risk) 3.45 3.90-5.80 [facility] McAllenTkocpetNXNHKL4776-41-24 11:10:00 Test Item Value Reference Range Interpretation Comments HDL (test code = HDL) 53 [facility] McAllenYanzrkgYGMBLN9012-50-91 11:10:00 Test Item Value Reference Range Interpretation Comments LDL (Calculated) (test code = LDL 106 (Calculated)) [facility] McAllenKzmleuyPZGBNT2262-71-03 11:10:00 Test Item Value Reference Range Interpretation Comments Trig (test code = Trig) 121 [facility] McAllenUeulzqzVXCSNL8231-27-78 11:10:00 Test Item Value Reference Range Interpretation Comments Chol (test code = Chol) 183 [facility] PointeHsbnmmaCZVLFF1045-49-71 11:10:00 Test Item Value Reference Range Interpretation Comments VLDL (test code = VLDL) 24 [facility] HMTEK7324-27-85 11:10:00 Test Item Value Reference Range Interpretation Comments % Satur Fe (test code = % Satur Fe) 6 12-57 [facility] IZEDX2694-13-49 11:10:00 Test Item Value Reference Range Interpretation Comments TIBC (test code = TIBC) 478 228-428 [facility] THCNX7829-80-82 11:10:00 Test Item Value Reference Range Interpretation Comments UIBC (test code = UIBC) 448 110-370 [facility] JBKZS4990-49-26 11:10:00 Test Item Value Reference Range Interpretation Comments Iron (test code = Iron) 30 30-160 [facility] RIFQR5178-97-54 11:10:00 Test Item Value Reference Range Interpretation Comments Ferritin Lvl (test code = Ferritin Lvl) 5 5-204 [facility] PointeCARFourth [facility] Studios ZNVLEOC9621-55-10 11:10:00 Test Item Value Reference Range Interpretation Comments CK MB (test code = CK MB) 0.7 0.5-3.6 [facility] AZGEZRK0120-38-78 11:10:00 Test Item Value Reference Range Interpretation Comments Total CK (test code = Total CK) 217 12-191 [facility] TKRGUSF8714-18-70 11:10:00 Test Item Value Reference Range Interpretation Comments CK MB Index (test 0.3 See_Comment [Automate d message] The code = CK MB Index) system w [facility] generated this result transmit kuldip reference range : <=2.5. The reference range was not used to interpr et this result as abiodun l/abnormal. [facility] YLGFI9430-80-33 11:10:00 Test Item Value Reference Range Interpretation Comments eGFR (test code = eGFR) 132 [facility] PointeTell[facility] Technology [id number] 11:10:00 Test Item Value Reference Range Interpretation Comments AST (test code = AST) 39 See_Comment [Auto mated message] The system which ge nerated this result transmit kuldip reference range : <=37. The reference range was not used to interpr et this result as abiodun l/abnormal. [facility]2016-01-14 11:10:00 Test Item Value Reference Range Interpretation Comments Alk Phos (test code = Alk Phos) 91 39-136 [facility]2016-01-14 11:10:00 Test Item Value Reference Range Interpretation Comments ALT (test code = ALT) 25 See_Comment [Auto mated message] The system which ge nerated this result transmit kuldip reference range : <=65. The reference range was not used to interpr et this result as abiodun l/abnormal. [facility]2016-01-14 11:10:00 Test Item Value Reference Range Interpretation Comments Bili Total (test code = Bili Total) 0.4 0.2-1.3 [facility]2016-01-14 11:10:00 Test Item Value Reference Range Interpretation Comments Calcium Lvl (test code = Calcium Lvl) 9.4 8.5-10.5 [facility]2016-01-14 11:10:00 Test Item Value Reference Range Interpretation Comments B/C Ratio (test code = B/C Ratio) 13 6-25 [facility]2016-01-14 11:10:00 Test Item Value Reference Range Interpretation Comments AGAP (test code = AGAP) 15.2 10.0-20.0 [facility]2016-01-14 11:10:00 Test Item Value Reference Range Interpretation Comments CO2 (test code = CO2) 21 24-32 [facility]2016-01-14 11:10:00 Test Item Value Reference Range Interpretation Comments A/G Ratio (test code = A/G Ratio) 0.5 0.7-1.6 [facility]2016-01-14 11:10:00 Test Item Value Reference Range Interpretation Comments Globulin (test code = Globulin) 5.0 2.0-4.0 [facility]2016-01-14 11:10:00 Test Item Value Reference Range Interpretation Comments Total Protein (test code = Total 7.7 6.4-8.4 Protein) [facility]2016-01-14 11:10:00 Test Item Value Reference Range Interpretation Comments Albumin Lvl (test code = Albumin Lvl) 2.7 3.5-5.0 [facility]2016-01-14 11:10:00 Test Item Value Reference Range Interpretation Comments BUN (test code = BUN) 8 7-22 [facility]2016-01-14 11:10:00 Test Item Value Reference Range Interpretation Comments Glucose Lvl (test code = Glucose Lvl) 86 70-99 [facility]2016-01-14 11:10:00 Test Item Value Reference Range Interpretation Comments Creatinine Lvl (test code = Creatinine 0.60 0.50-1.40 Lvl) [facility]2016-01-14 11:10:00 Test Item Value Reference Range Interpretation Comments Sodium Lvl (test code = Sodium Lvl) 138 135-145 [facility]2016-01-14 11:10:00 Test Item Value Reference Range Interpretation Comments Chloride Lvl (test code = Chloride Lvl) 106 95-109 [facility]2016-01-14 11:10:00 Test Item Value Reference Range Interpretation Comments Potassium Lvl (test code = Potassium 4.2 3.5-5.1 Lvl) [facility] CenterHwxxgdqYRPFTUELPZ7152-94-90 11:10:00 Test Item Value Reference Range Interpretation Comments Polychrom (test code = Moderate *ABN*(04/08/15 Polychrom) 5:10 AM) [facility] CenterYkbnfkeLIWCXRERLD5124-76-79 11:10:00 Test Item Value Reference Range Interpretation Comments Microcyte (test code = 2+ *ABN*(04/08/15 Microcyte) 5:10 AM) [facility] CenterZzhtumgHKWPGLGFFG5424-69-97 11:10:00 Test Item Value Reference Range Interpretation Comments Basophils # (test code 0.0 See_Comment [Aut omated message] The = Basophils #) system which generated this result tra nsmitted reference range : <=0.2. The reference r nilam was not used to int erpret this result as normal/abnormal . [facility] CenterLxgiynwGTTICYGDIA5827-60-21 11:10:00 Test Item Value Reference Range Interpretation Comments Plt Morph (test code = Normal (04/08/15 5:10 Plt Morph) AM) [facility] CenterHhmuunxUMNEKVRIPG7293-20-08 11:10:00 Test Item Value Reference Range Interpretation Comments Lymphocytes # (test code = Lymphocytes 1.8 1.0-5.5 #) [facility] CenterVbirqhhCYFOMLHCVN4796-24-19 11:10:00 Test Item Value Reference Range Interpretation Comments Segs-Bands # (test code = Segs-Bands #) 3.0 1.5-8.1 [facility] CenterZeastqcWQDOFTSIMG4192-77-41 11:10:00 Test Item Value Reference Range Interpretation Comments Monocytes # (test code 0.4 See_Comment [Aut omated message] The = Monocytes #) system which generated this result tra nsmitted reference range : <=0.8. The reference r nilam was not used to int erpret this result as normal/abnormal . [facility] CenterSdnbvrmOISRWNAMFS6318-10-87 11:10:00 Test Item Value Reference Range Interpretation Comments Eosinophils # (test code 0.1 See_Comment [A utomated message] The = Eosinophils #) system whic h generated this result tra nsmitted reference range : <=0.5. The reference r nilam was not used to int erpret this result as normal/abnormal . [facility] CenterIbyvkkwLVCNNFWMIY0070-71-60 11:10:00 Test Item Value Reference Range Interpretation Comments Monocytes (test code = Monocytes) 7.0 2.0-12.0 [facility] CenterKvhywmuTDHLUWPVKB8661-67-47 11:10:00 Test Item Value Reference Range Interpretation Comments Segs (test code = Segs) 56.2 45.0-75.0 [facility] CenterTclvgwyYFWTJRHYPC0485-38-63 11:10:00 Test Item Value Reference Range Interpretation Comments Eosinophils (test code = 2.0 See_Comment [A utomated message] The Eosinophils) system which ge nerated this result tra nsmitted reference range : <=4.0. The reference r nilam was not used to int erpret this result as normal/abnormal . [facility] CenterAxzcbxwXVWVLGBTSH1368-12-53 11:10:00 Test Item Value Reference Range Interpretation Comments Lymphocytes (test code = Lymphocytes) 34.2 20.0-40.0 [facility] CenterNvynzqbBAVJMYHYKV8215-91-42 11:10:00 Test Item Value Reference Range Interpretation Comments Basophils (test code = 0.6 See_Comment [Aut omated message] The Basophils) system which ge nerated this result tra nsmitted reference range : <=1.0. The reference r nilam was not used to int erpret this result as normal/abnormal . [facility] CenterSnwahdxXAYBMJMHST6615-25-18 11:10:00 Test Item Value Reference Range Interpretation Comments MPV (test code = MPV) 8.3 7.4-10.4 [facility] CenterLnbvyuhAJTDIETWKO7016-33-00 11:10:00 Test Item Value Reference Range Interpretation Comments Platelet (test code = Platelet) 291 133-450 [facility] CenterXnaqxiwYJPALAYIPZ3526-02-63 11:10:00 Test Item Value Reference Range Interpretation Comments RDW (test code = RDW) 17.7 11.5-14.5 [facility] CenterKqsvzhnTYCETTWZGK1818-67-27 11:10:00 Test Item Value Reference Range Interpretation Comments MCHC (test code = MCHC) 30.4 32.0-36.0 [facility] CenterWohujmpPEBPUYZLPX3516-99-75 11:10:00 Test Item Value Reference Range Interpretation Comments MCH (test code = MCH) 21.9 pg 27.0-31.0 [facility] CenterTliulkaLZLLABJHES5493-63-26 11:10:00 Test Item Value Reference Range Interpretation Comments RBC (test code = RBC) 3.99 4.20-5.40 [facility] CenterQwgriulTTZARNGWYJ6067-49-61 11:10:00 Test Item Value Reference Range Interpretation Comments WBC (test code = WBC) 5.4 3.7-10.4 [facility] CenterOtlpkrwTBZGGBNRZW8279-70-12 11:10:00 Test Item Value Reference Range Interpretation Comments MCV (test code = MCV) 72.1 80.0-98.0 [facility] CenterDwrlgweUQKSDHPRQD9499-74-58 11:10:00 Test Item Value Reference Range Interpretation Comments Hgb (test code = Hgb) 8.8 12.0-16.0 [facility] CenterDkkwjemYPEZGJSKSQ4519-21-66 11:10:00 Test Item Value Reference Range Interpretation Comments Hct (test code = Hct) 28.8 36.0-48.0 [facility] PointeRuttvjbSSDZYK5797-68-42 11:10:00 Test Item Value Reference Range Interpretation Comments CHD Risk (test code = CHD Risk) 3.45 3.90-5.80 [facility] PointeDxklphwDTKROU2248-80-73 11:10:00 Test Item Value Reference Range Interpretation Comments HDL (test code = HDL) 53 [facility] PointeOfjkumeSBXRZW0387-25-32 11:10:00 Test Item Value Reference Range Interpretation Comments LDL (Calculated) (test code = LDL 106 (Calculated)) [facility] PointeKzmmdorJOILQM4944-52-01 11:10:00 Test Item Value Reference Range Interpretation Comments Trig (test code = Trig) 121 [facility] PointeAihlcnbSFNLIC5546-71-23 11:10:00 Test Item Value Reference Range Interpretation Comments Chol (test code = Chol) 183 [facility] McAllenNjybiwqOQJATE0563-60-14 11:10:00 Test Item Value Reference Range Interpretation Comments VLDL (test code = VLDL) 24 [facility] ORTPQ7355-01-10 11:10:00 Test Item Value Reference Range Interpretation Comments % Satur Fe (test code = % Satur Fe) 6 12-57 [facility] QRUAZ0234-60-53 11:10:00 Test Item Value Reference Range Interpretation Comments TIBC (test code = TIBC) 478 228-428 [facility] WYNLI5149-12-52 11:10:00 Test Item Value Reference Range Interpretation Comments UIBC (test code = UIBC) 448 110-370 [facility] IAOZZ5363-16-93 11:10:00 Test Item Value Reference Range Interpretation Comments Iron (test code = Iron) 30 30-160 [facility] [id number] 11:10:00 Test Item Value Reference Range Interpretation Comments Ferritin Lvl (test code = Ferritin Lvl) 5 5-204 [facility] [id number] 11:10:00 Test Item Value Reference Range Interpretation Comments CK MB (test code = CK MB) 0.7 0.5-3.6 [facility] [id number] 11:10:00 Test Item Value Reference Range Interpretation Comments Total CK (test code = Total CK) 217 12-191 [facility] [id number] 11:10:00 Test Item Value Reference Range Interpretation Comments CK MB Index (test 0.3 See_Comment [Automate d message] The code = CK MB Index) system w [facility] generated this result transmit kuldip reference range : <=2.5. The reference range was not used to interpr et this result as abiodun l/abnormal. [facility] [id number] 11:10:00 Test Item Value Reference Range Interpretation Comments eGFR (test code = eGFR) 132 [facility] Hospitalann[id number] 11:10:00 Test Item Value Reference Range Interpretation Comments AST (test code = AST) 39 See_Comment [Auto mated message] The system which ge nerated this result transmit kuldip reference range : <=37. The reference range was not used to interpr et this result as abiodun l/abnormal. [facility] [id number] 11:10:00 Test Item Value Reference Range Interpretation Comments Alk Phos (test code = Alk Phos) 91 39-136 [facility] [id number] 11:10:00 Test Item Value Reference Range Interpretation Comments ALT (test code = ALT) 25 See_Comment [Auto mated message] The system which ge nerated this result transmit kuldip reference range : <=65. The reference range was not used to interpr et this result as abiodun l/abnormal. [facility] [id number] 11:10:00 Test Item Value Reference Range Interpretation Comments Bili Total (test code = Bili Total) 0.4 0.2-1.3 [facility] [id number] 11:10:00 Test Item Value Reference Range Interpretation Comments Calcium Lvl (test code = Calcium Lvl) 9.4 8.5-10.5 [facility] [id number] 11:10:00 Test Item Value Reference Range Interpretation Comments B/C Ratio (test code = B/C Ratio) 13 6-25 [facility] [id number] 11:10:00 Test Item Value Reference Range Interpretation Comments AGAP (test code = AGAP) 15.2 10.0-20.0 [facility] [id number] 11:10:00 Test Item Value Reference Range Interpretation Comments CO2 (test code = CO2) 21 24-32 [facility] [id number] 11:10:00 Test Item Value Reference Range Interpretation Comments A/G Ratio (test code = A/G Ratio) 0.5 0.7-1.6 [facility] [id number] 11:10:00 Test Item Value Reference Range Interpretation Comments Globulin (test code = Globulin) 5.0 2.0-4.0 [facility] [id number] 11:10:00 Test Item Value Reference Range Interpretation Comments Total Protein (test code = Total 7.7 6.4-8.4 Protein) [facility]2016-01-14 11:10:00 Test Item Value Reference Range Interpretation Comments Albumin Lvl (test code = Albumin Lvl) 2.7 3.5-5.0 [facility]2016-01-14 11:10:00 Test Item Value Reference Range Interpretation Comments BUN (test code = BUN) 8 7-22 [facility]2016-01-14 11:10:00 Test Item Value Reference Range Interpretation Comments Glucose Lvl (test code = Glucose Lvl) 86 70-99 [place] 188936-01-14 11:10:00 Test Item Value Reference Range Interpretation Comments Creatinine Lvl (test code = Creatinine 0.60 0.50-1.40 Lvl) [facility]2016-01-14 11:10:00 Test Item Value Reference Range Interpretation Comments Sodium Lvl (test code = Sodium Lvl) 138 135-145 [facility]2016-01-14 11:10:00 Test Item Value Reference Range Interpretation Comments Chloride Lvl (test code = Chloride Lvl) 106 95-109 [place] 188936-01-14 11:10:00 Test Item Value Reference Range Interpretation Comments Potassium Lvl (test code = Potassium 4.2 3.5-5.1 Lvl) [facility]SqmuhcuHHYNHJTGJD5407-72-41 11:10:00 Test Item Value Reference Range Interpretation Comments Polychrom (test code = Moderate *ABN*(04/08/15 Polychrom) 5:10 AM) [facility] CenterFvalxknRIJZBNLYNJ1885-10-59 11:10:00 Test Item Value Reference Range Interpretation Comments Microcyte (test code = 2+ *ABN*(04/08/15 Microcyte) 5:10 AM) [facility] CenterMvquarjUNQQGRYBLK4865-47-47 11:10:00 Test Item Value Reference Range Interpretation Comments Basophils # (test code 0.0 See_Comment [Aut omated message] The = Basophils #) system which generated this result tra nsmitted reference range : <=0.2. The reference r nilam was not used to int erpret this result as normal/abnormal . [facility] CenterUdsmcrkKCJOAZERRF3934-69-73 11:10:00 Test Item Value Reference Range Interpretation Comments Plt Morph (test code = Normal (04/08/15 5:10 Plt Morph) AM) [facility] CenterUftsltcOISJQIUTON3961-08-61 11:10:00 Test Item Value Reference Range Interpretation Comments Lymphocytes # (test code = Lymphocytes 1.8 1.0-5.5 #) [facility] CenterGuzstkdBLNUTVOMAP1725-31-84 11:10:00 Test Item Value Reference Range Interpretation Comments Segs-Bands # (test code = Segs-Bands #) 3.0 1.5-8.1 [facility] CenterUaikewdBSRRNVKYKB0176-66-06 11:10:00 Test Item Value Reference Range Interpretation Comments Monocytes # (test code 0.4 See_Comment [Aut omated message] The = Monocytes #) system which generated this result tra nsmitted reference range : <=0.8. The reference r nilam was not used to int erpret this result as normal/abnormal . [facility] CenterUpxjhdyPKFLSWGDGY8702-26-35 11:10:00 Test Item Value Reference Range Interpretation Comments Eosinophils # (test code 0.1 See_Comment [A utomated message] The = Eosinophils #) system whic h generated this result tra nsmitted reference range : <=0.5. The reference r nilam was not used to int erpret this result as normal/abnormal . [facility] CenterPjboqbkVDVVDGMDCY5358-64-08 11:10:00 Test Item Value Reference Range Interpretation Comments Monocytes (test code = Monocytes) 7.0 2.0-12.0 [facility] CenterKcmidygQTLNGJPXXU3373-17-66 11:10:00 Test Item Value Reference Range Interpretation Comments Segs (test code = Segs) 56.2 45.0-75.0 [facility] CenterXuzykmnHZHYYVYPRA3052-53-07 11:10:00 Test Item Value Reference Range Interpretation Comments Eosinophils (test code = 2.0 See_Comment [A utomated message] The Eosinophils) system which ge nerated this result tra nsmitted reference range : <=4.0. The reference r nilam was not used to int erpret this result as normal/abnormal . [facility] CenterJlrswnhUXRRDLOXJO9652-95-50 11:10:00 Test Item Value Reference Range Interpretation Comments Lymphocytes (test code = Lymphocytes) 34.2 20.0-40.0 [facility] CenterHtiyxatAUAVSIFOQV6248-23-58 11:10:00 Test Item Value Reference Range Interpretation Comments Basophils (test code = 0.6 See_Comment [Aut omated message] The Basophils) system which ge nerated this result tra nsmitted reference range : <=1.0. The reference r nilam was not used to int erpret this result as normal/abnormal . [facility] CenterJrkibtpMHMLLFYJLD2968-52-14 11:10:00 Test Item Value Reference Range Interpretation Comments MPV (test code = MPV) 8.3 7.4-10.4 [facility] CenterMnnefxuFDHXXRUOPI4463-39-11 11:10:00 Test Item Value Reference Range Interpretation Comments Platelet (test code = Platelet) 291 133-450 [facility] CenterKructtiWFASCGTJGU0124-01-25 11:10:00 Test Item Value Reference Range Interpretation Comments RDW (test code = RDW) 17.7 11.5-14.5 [facility] CenterPkgxmwiQCNNYCGLPO1591-96-67 11:10:00 Test Item Value Reference Range Interpretation Comments MCHC (test code = MCHC) 30.4 32.0-36.0 [facility] CenterOyqthgfUKXXXGJKME4747-65-04 11:10:00 Test Item Value Reference Range Interpretation Comments MCH (test code = MCH) 21.9 pg 27.0-31.0 [facility] CenterFnjylsgQODSUXYZJK6272-04-40 11:10:00 Test Item Value Reference Range Interpretation Comments RBC (test code = RBC) 3.99 4.20-5.40 [facility] CenterColahdeBUPRFRLIIT0307-93-27 11:10:00 Test Item Value Reference Range Interpretation Comments WBC (test code = WBC) 5.4 3.7-10.4 [facility] CenterKaaoxzlOQFDQCFTYX1580-26-24 11:10:00 Test Item Value Reference Range Interpretation Comments MCV (test code = MCV) 72.1 80.0-98.0 [facility] CenterYwhjfszMHMQCJQVAS5715-63-41 11:10:00 Test Item Value Reference Range Interpretation Comments Hgb (test code = Hgb) 8.8 12.0-16.0 [facility] CenterQdoueqmIORQXIWZJF8601-23-63 11:10:00 Test Item Value Reference Range Interpretation Comments Hct (test code = Hct) 28.8 36.0-48.0 [facility]AllenHlpwkdpYPIOJS3617-38-49 11:10:00 Test Item Value Reference Range Interpretation Comments CHD Risk (test code = CHD Risk) 3.45 3.90-5.80 [facility]AllenNsamfknDDINYH5295-35-95 11:10:00 Test Item Value Reference Range Interpretation Comments HDL (test code = HDL) 53 [facility] McAllenNubofraVBMBFC8540-18-71 11:10:00 Test Item Value Reference Range Interpretation Comments LDL (Calculated) (test code = LDL 106 (Calculated)) [facility]AllenWvhshyhJIHFOB8418-66-37 11:10:00 Test Item Value Reference Range Interpretation Comments Trig (test code = Trig) 121 [facility] McAllenLiouwurSUGPHF4565-34-20 11:10:00 Test Item Value Reference Range Interpretation Comments Chol (test code = Chol) 183 [facility] McAllenKsvnurjIUNXYM7547-55-94 11:10:00 Test Item Value Reference Range Interpretation Comments VLDL (test code = VLDL) 24 [facility] [id number] 11:10:00 Test Item Value Reference Range Interpretation Comments % Satur Fe (test code = % Satur Fe) 6 12-57 [facility] [id number] 11:10:00 Test Item Value Reference Range Interpretation Comments TIBC (test code = TIBC) 478 228-428 [facility] KHDBN3683-16-16 11:10:00 Test Item Value Reference Range Interpretation Comments UIBC (test code = UIBC) 448 110-370 [facility] [id number] 11:10:00 Test Item Value Reference Range Interpretation Comments Iron (test code = Iron) 30 30-160 [facility] AVEKB7622-11-62 11:10:00 Test Item Value Reference Range Interpretation Comments Ferritin Lvl (test code = Ferritin Lvl) 5 5-204 [facility] JOJPMHE1189-65-44 11:10:00 Test Item Value Reference Range Interpretation Comments CK MB (test code = CK MB) 0.7 0.5-3.6 [facility] TVEBUAN7888-44-89 11:10:00 Test Item Value Reference Range Interpretation Comments Total CK (test code = Total CK) 217 12-191 [facility] AKQODVB1627-08-28 11:10:00 Test Item Value Reference Range Interpretation Comments CK MB Index (test 0.3 See_Comment [Automate d message] The code = CK MB Index) system w [facility] generated this result transmit kuldip reference range : <=2.5. The reference range was not used to interpr et this result as abiodun l/abnormal. [facility]2016-01-14 11:10:00 Test Item Value Reference Range Interpretation Comments eGFR (test code = eGFR) 132 [facility]2016-01-14 11:10:00 Test Item Value Reference Range Interpretation Comments AST (test code = AST) 39 See_Comment [Auto mated message] The system which ge nerated this result transmit kuldip reference range : <=37. The reference range was not used to interpr et this result as abiodun l/abnormal. [facility]2016-01-14 11:10:00 Test Item Value Reference Range Interpretation Comments Alk Phos (test code = Alk Phos) 91 39-136 [facility]2016-01-14 11:10:00 Test Item Value Reference Range Interpretation Comments ALT (test code = ALT) 25 See_Comment [Auto mated message] The system which ge nerated this result transmit kuldip reference range : <=65. The reference range was not used to interpr et this result as abiodun l/abnormal. [facility]2016-01-14 11:10:00 Test Item Value Reference Range Interpretation Comments Bili Total (test code = Bili Total) 0.4 0.2-1.3 [facility]2016-01-14 11:10:00 Test Item Value Reference Range Interpretation Comments Calcium Lvl (test code = Calcium Lvl) 9.4 8.5-10.5 [facility]2016-01-14 11:10:00 Test Item Value Reference Range Interpretation Comments B/C Ratio (test code = B/C Ratio) 13 6-25 [facility]2016-01-14 11:10:00 Test Item Value Reference Range Interpretation Comments AGAP (test code = AGAP) 15.2 10.0-20.0 [facility]2016-01-14 11:10:00 Test Item Value Reference Range Interpretation Comments CO2 (test code = CO2) 21 24-32 [facility]2016-01-14 11:10:00 Test Item Value Reference Range Interpretation Comments A/G Ratio (test code = A/G Ratio) 0.5 0.7-1.6 [facility]2016-01-14 11:10:00 Test Item Value Reference Range Interpretation Comments Globulin (test code = Globulin) 5.0 2.0-4.0 [facility]2016-01-14 11:10:00 Test Item Value Reference Range Interpretation Comments Total Protein (test code = Total 7.7 6.4-8.4 Protein) [facility]2016-01-14 11:10:00 Test Item Value Reference Range Interpretation Comments Albumin Lvl (test code = Albumin Lvl) 2.7 3.5-5.0 [facility]2016-01-14 11:10:00 Test Item Value Reference Range Interpretation Comments BUN (test code = BUN) 8 7-22 [facility]2016-01-14 11:10:00 Test Item Value Reference Range Interpretation Comments Glucose Lvl (test code = Glucose Lvl) 86 70-99 [facility]2016-01-14 11:10:00 Test Item Value Reference Range Interpretation Comments Creatinine Lvl (test code = Creatinine 0.60 0.50-1.40 Lvl) [facility]2016-01-14 11:10:00 Test Item Value Reference Range Interpretation Comments Sodium Lvl (test code = Sodium Lvl) 138 135-145 [facility]2016-01-14 11:10:00 Test Item Value Reference Range Interpretation Comments Chloride Lvl (test code = Chloride Lvl) 106 95-109 [facility]2016-01-14 11:10:00 Test Item Value Reference Range Interpretation Comments Potassium Lvl (test code = Potassium 4.2 3.5-5.1 Lvl) [facility] CenterFqdlbntIGDPKPQYGU2865-74-35 11:10:00 Test Item Value Reference Range Interpretation Comments Polychrom (test code = Moderate *ABN*(04/08/15 Polychrom) 5:10 AM) [facility] CenterAyqlaofBJRMVIJGLN9051-67-38 11:10:00 Test Item Value Reference Range Interpretation Comments Microcyte (test code = 2+ *ABN*(04/08/15 Microcyte) 5:10 AM) [facility] CenterPbxrhjkSHGQLOHFRN1947-04-12 11:10:00 Test Item Value Reference Range Interpretation Comments Basophils # (test code 0.0 See_Comment [Aut omated message] The = Basophils #) system which generated this result tra nsmitted reference range : <=0.2. The reference r nilam was not used to int erpret this result as normal/abnormal . [facility] CenterUisljdpKCWIZXLGCW3387-86-10 11:10:00 Test Item Value Reference Range Interpretation Comments Plt Morph (test code = Normal (04/08/15 5:10 Plt Morph) AM) [facility] CenterLcvczmhXJCACYHXCK5887-78-24 11:10:00 Test Item Value Reference Range Interpretation Comments Lymphocytes # (test code = Lymphocytes 1.8 1.0-5.5 #) [facility] CenterLyoekqyTZBJMEDPID0512-26-37 11:10:00 Test Item Value Reference Range Interpretation Comments Segs-Bands # (test code = Segs-Bands #) 3.0 1.5-8.1 [facility] CenterGqelfiwBIIKVSFWTY5002-26-80 11:10:00 Test Item Value Reference Range Interpretation Comments Monocytes # (test code 0.4 See_Comment [Aut omated message] The = Monocytes #) system which generated this result tra nsmitted reference range : <=0.8. The reference r nilam was not used to int erpret this result as normal/abnormal . [facility] CenterNuqzuuzFGRQIEREUP9276-28-03 11:10:00 Test Item Value Reference Range Interpretation Comments Eosinophils # (test code 0.1 See_Comment [A utomated message] The = Eosinophils #) system whic h generated this result tra nsmitted reference range : <=0.5. The reference r nilam was not used to int erpret this result as normal/abnormal . [facility] CenterTitjxguIGBKVPYJTK3362-42-96 11:10:00 Test Item Value Reference Range Interpretation Comments Monocytes (test code = Monocytes) 7.0 2.0-12.0 [facility] CenterJegukieBDREZDPKNF2832-53-40 11:10:00 Test Item Value Reference Range Interpretation Comments Segs (test code = Segs) 56.2 45.0-75.0 [facility] CenterZzsnmjrDZNKQUKWYS8023-96-04 11:10:00 Test Item Value Reference Range Interpretation Comments Eosinophils (test code = 2.0 See_Comment [A utomated message] The Eosinophils) system which ge nerated this result tra nsmitted reference range : <=4.0. The reference r nilam was not used to int erpret this result as normal/abnormal . [facility] CenterUlidrugJMKWCRERCF9998-98-43 11:10:00 Test Item Value Reference Range Interpretation Comments Lymphocytes (test code = Lymphocytes) 34.2 20.0-40.0 [facility] CenterFmspkwzPCQDUVBRIV5177-54-13 11:10:00 Test Item Value Reference Range Interpretation Comments Basophils (test code = 0.6 See_Comment [Aut omated message] The Basophils) system which ge nerated this result tra nsmitted reference range : <=1.0. The reference r nilam was not used to int erpret this result as normal/abnormal . [facility] CenterMunofufSWMCAPGGYD3881-30-95 11:10:00 Test Item Value Reference Range Interpretation Comments MPV (test code = MPV) 8.3 7.4-10.4 [facility] CenterVyjnwxpWNKCMCGMQR8189-90-32 11:10:00 Test Item Value Reference Range Interpretation Comments Platelet (test code = Platelet) 291 133-450 [facility] CenterWfcdwiaMQVKYRRFCA9388-15-77 11:10:00 Test Item Value Reference Range Interpretation Comments RDW (test code = RDW) 17.7 11.5-14.5 [facility] CenterYappgpuHERVPRDFHP2018-03-76 11:10:00 Test Item Value Reference Range Interpretation Comments MCHC (test code = MCHC) 30.4 32.0-36.0 [facility] CenterWtfifzvSWJQUXAHGU9739-31-38 11:10:00 Test Item Value Reference Range Interpretation Comments MCH (test code = MCH) 21.9 pg 27.0-31.0 [facility] CenterAijnkcqUVSSNPBVZN3609-62-16 11:10:00 Test Item Value Reference Range Interpretation Comments RBC (test code = RBC) 3.99 4.20-5.40 [facility] CenterYolwatvSTMXVXMDJW7110-88-22 11:10:00 Test Item Value Reference Range Interpretation Comments WBC (test code = WBC) 5.4 3.7-10.4 [facility] CenterNdcvcksPVAIXFRTIK2351-49-38 11:10:00 Test Item Value Reference Range Interpretation Comments MCV (test code = MCV) 72.1 80.0-98.0 [facility] CenterFgpvmrpUKQSNXNJDZ0188-17-72 11:10:00 Test Item Value Reference Range Interpretation Comments Hgb (test code = Hgb) 8.8 12.0-16.0 [facility] CenterQfqzlmsPKTOVPNAYG1542-80-33 11:10:00 Test Item Value Reference Range Interpretation Comments Hct (test code = Hct) 28.8 36.0-48.0 [facility]AllenTidyqajGTILII6998-45-19 11:10:00 Test Item Value Reference Range Interpretation Comments CHD Risk (test code = CHD Risk) 3.45 3.90-5.80 [facility]AllenDuupcasZVFDAC6979-85-03 11:10:00 Test Item Value Reference Range Interpretation Comments HDL (test code = HDL) 53 [facility]AllenNcyfnykQGCRQC4872-31-99 11:10:00 Test Item Value Reference Range Interpretation Comments LDL (Calculated) (test code = LDL 106 (Calculated)) [facility]AllenZjcmybaJIZXKF9400-04-92 11:10:00 Test Item Value Reference Range Interpretation Comments Trig (test code = Trig) 121 [facility] McAllenNuaxawsMMENNK4160-24-77 11:10:00 Test Item Value Reference Range Interpretation Comments Chol (test code = Chol) 183 [facility] McAllenVfcntfsOLXYBG2234-34-61 11:10:00 Test Item Value Reference Range Interpretation Comments VLDL (test code = VLDL) 24 [facility]2016-01-14 02:16:00 Test Item Value Reference Range Interpretation Comments Folate Lvl (test code = Folate Lvl) 17.7 [facility]2016-01-14 02:16:00 Test Item Value Reference Range Interpretation Comments Vitamin B12 Lvl (test code = Vitamin [phone] B12 Lvl) [facility]2016-01-14 02:16:00 Test Item Value Reference Range Interpretation Comments Ferritin Lvl (test code = Ferritin Lvl) 2 [facility] CenterOgqsiulRWGTBAULDR4350-28-62 02:16:00 Test Item Value Reference Range Interpretation Comments Retic Auto (test code = Retic Auto) 1.4 0.5-1.5 [facility]2016-01-14 02:16:00 Test Item Value Reference Range Interpretation Comments Folate Lvl (test code = Folate Lvl) 17.7 [facility]2016-01-14 02:16:00 Test Item Value Reference Range Interpretation Comments Vitamin B12 Lvl (test code = Vitamin [phone] B12 Lvl) [facility]2016-01-14 02:16:00 Test Item Value Reference Range Interpretation Comments Ferritin Lvl (test code = Ferritin Lvl) 2 [facility] CenterWqkewgqXERTCDINSF9483-70-54 02:16:00 Test Item Value Reference Range Interpretation Comments Retic Auto (test code = Retic Auto) 1.4 0.5-1.5 [facility]2016-01-14 02:16:00 Test Item Value Reference Range Interpretation Comments Folate Lvl (test code = Folate Lvl) 17.7 [facility]2016-01-14 02:16:00 Test Item Value Reference Range Interpretation Comments Vitamin B12 Lvl (test code = Vitamin [phone] B12 Lvl) [facility]2016-01-14 02:16:00 Test Item Value Reference Range Interpretation Comments Ferritin Lvl (test code = Ferritin Lvl) 2 [facility] CenterNltsimrBPLFLKNTRQ0946-99-05 02:16:00 Test Item Value Reference Range Interpretation Comments Retic Auto (test code = Retic Auto) 1.4 0.5-1.5 [facility]2016-01-14 02:16:00 Test Item Value Reference Range Interpretation Comments Folate Lvl (test code = Folate Lvl) 17.7 [facility]2016-01-14 02:16:00 Test Item Value Reference Range Interpretation Comments Vitamin B12 Lvl (test code = Vitamin [phone] B12 Lvl) [facility]2016-01-14 02:16:00 Test Item Value Reference Range Interpretation Comments Ferritin Lvl (test code = Ferritin Lvl) 2 [facility] CenterCjztkgzYXYBGEIKUE6413-12-32 02:16:00 Test Item Value Reference Range Interpretation Comments Retic Auto (test code = Retic Auto) 1.4 0.5-1.5 [facility]2016-01-14 02:16:00 Test Item Value Reference Range Interpretation Comments Folate Lvl (test code = Folate Lvl) 17.7 [facility]2016-01-14 02:16:00 Test Item Value Reference Range Interpretation Comments Vitamin B12 Lvl (test code = Vitamin [phone] B12 Lvl) [facility]2016-01-14 02:16:00 Test Item Value Reference Range Interpretation Comments Ferritin Lvl (test code = Ferritin Lvl) [id number] 02:16:00 Test Item Value Reference Range Interpretation Comments Retic Auto (test code = Retic Auto) 1.4 0.5-1.5 [facility]2016-01-13 23:25:00 Test Item Value Reference Range Interpretation Comments Troponin-I (test code no gt See_Comment [Auto mated message] The = Troponin-I) system which g enerated this result transmit kuldip reference range : <=0.40. The reference r nilam was not used to interpr et this result as abiodun l/abnormal. [facility]2016-01-13 23:25:00 Test Item Value Reference Range Interpretation Comments Total CK (test code = Total CK) 257 191 [facility]2016-01-13 23:25:00 Test Item Value Reference Range Interpretation Comments CK MB Index (test 0.4 See_Comment [Automate d message] The code = CK MB Index) system w [employer] generated this result transmit kuldip reference range : <=2.5. The reference range was not used to interpr et this result as abiodun l/abnormal. [facility]2016-01-13 23:25:00 Test Item Value Reference Range Interpretation Comments CK MB (test code = CK MB) 1.1 0.5-3.6 [facility]2016-01-13 23:25:00 Test Item Value Reference Range Interpretation Comments Troponin-I (test code no gt See_Comment [Auto mated message] The = Troponin-I) system which g enerated this result transmit kuldip reference range : <=0.40. The reference r nilam was not used to interpr et this result as abiodun l/abnormal. [facility]2016-01-13 23:25:00 Test Item Value Reference Range Interpretation Comments Total CK (test code = Total CK) 257 12191 [facility]2016-01-13 23:25:00 Test Item Value Reference Range Interpretation Comments CK MB Index (test 0.4 See_Comment [Automate d message] The code = CK MB Index) system w [employer] generated this result transmit kuldip reference range : <=2.5. The reference range was not used to interpr et this result as abiodun l/abnormal. [employer]2016-01-13 23:25:00 Test Item Value Reference Range Interpretation Comments CK MB (test code = CK MB) 1.1 0.5-3.6 [facility]2016-01-13 23:25:00 Test Item Value Reference Range Interpretation Comments Troponin-I (test code no gt See_Comment [Auto mated message] The = Troponin-I) system which g enerated this result transmit kuldip reference range : <=0.40. The reference r nilam was not used to interpr et this result as abiodun l/abnormal. [facility]2016-01-13 23:25:00 Test Item Value Reference Range Interpretation Comments Total CK (test code = Total CK) 257 191 [facility]2016-01-13 23:25:00 Test Item Value Reference Range Interpretation Comments CK MB Index (test 0.4 See_Comment [Automate d message] The code = CK MB Index) system w [employer] generated this result transmit kuldip reference range : <=2.5. The reference range was not used to interpr et this result as abiodun l/abnormal. [facility]2016-01-13 23:25:00 Test Item Value Reference Range Interpretation Comments CK MB (test code = CK MB) 1.1 0.5-3.6 [facility]2016-01-13 23:25:00 Test Item Value Reference Range Interpretation Comments Troponin-I (test code no gt See_Comment [Auto mated message] The = Troponin-I) system which g enerated this result transmit kuldip reference range : <=0.40. The reference r nilam was not used to interpr et this result as abiodun l/abnormal. [facility]2016-01-13 23:25:00 Test Item Value Reference Range Interpretation Comments Total CK (test code = Total CK) 257 191 [facility]2016-01-13 23:25:00 Test Item Value Reference Range Interpretation Comments CK MB Index (test 0.4 See_Comment [Automate d message] The code = CK MB Index) system w [employer] generated this result transmit kuldip reference range : <=2.5. The reference range was not used to interpr et this result as abiodun l/abnormal. [facility]2016-01-13 23:25:00 Test Item Value Reference Range Interpretation Comments CK MB (test code = CK MB) 1.1 0.5-3.6 [facility]2016-01-13 23:25:00 Test Item Value Reference Range Interpretation Comments Troponin-I (test code no gt See_Comment [Auto mated message] The = Troponin-I) system which g enerated this result transmit kuldip reference range : <=0.40. The reference r nilam was not used to interpr et this result as abiodun l/abnormal. [facility]2016-01-13 23:25:00 Test Item Value Reference Range Interpretation Comments Total CK (test code = Total CK) 257 12-191 [facility]2016-01-13 23:25:00 Test Item Value Reference Range Interpretation Comments CK MB Index (test 0.4 See_Comment [Automate d message] The code = CK MB Index) system w [facility] generated this result transmit kuldip reference range : <=2.5. The reference range was not used to interpr et this result as abiodun l/abnormal. [facility]2016-01-13 23:25:00 Test Item Value Reference Range Interpretation Comments CK MB (test code = CK MB) 1.1 0.5-3.6 [facility]2016-01-13 15:59:00 Test Item Value Reference Range Interpretation Comments Troponin-I (test code no gt See_Comment [Auto mated message] The = Troponin-I) system which g enerated this result transmit kuldip reference range : <=0.40. The reference r nilam was not used to interpr et this result as abiodun l/abnormal. [facility]2016-01-13 15:59:00 Test Item Value Reference Range Interpretation Comments Troponin-I (test code no gt See_Comment [Auto mated message] The = Troponin-I) system which g enerated this result transmit kuldip reference range : <=0.40. The reference r nilam was not used to interpr et this result as abiodun l/abnormal. [facility]2016-01-13 15:59:00 Test Item Value Reference Range Interpretation Comments Troponin-I (test code no gt See_Comment [Auto mated message] The = Troponin-I) system which g enerated this result transmit kuldip reference range : <=0.40. The reference r nilam was not used to interpr et this result as abiodun l/abnormal. [facility] [id number] 15:59:00 Test Item Value Reference Range Interpretation Comments Troponin-I (test code no gt See_Comment [Auto mated message] The = Troponin-I) system which g enerated this result transmit kuldip reference range : <=0.40. The reference r nilam was not used to interpr et this result as abiodun l/abnormal. [facility] [id number] 15:59:00 Test Item Value Reference Range Interpretation Comments Troponin-I (test code no gt See_Comment [Auto mated message] The = Troponin-I) system which g enerated this result transmit kuldip reference range : <=0.40. The reference r nilam was not used to interpr et this result as abiodun l/abnormal. [facility] AND [id number] 14:33:00 Test Item Value Reference Range Interpretation Comments UA Spec Grav (test code = UA Spec 1.020 1 Grav) [facility] AND [id number] 14:33:00 Test Item Value Reference Range Interpretation Comments UA Protein (test code = Trace *ABN*(04/07/15 UA Protein) 8:33 AM) [facility] AND [id number] 14:33:00 Test Item Value Reference Range Interpretation Comments UA pH (test code = UA pH) 6.5 1 5.0-8.0 [facility] AND [id number] 14:33:00 Test Item Value Reference Range Interpretation Comments UA Ketones (test code Negative *NA*(04/07/15 = UA Ketones) 8:33 AM) [facility] AND [id number] 14:33:00 Test Item Value Reference Range Interpretation Comments UA Glucose (test code Negative (04/07/15 8:33 = UA Glucose) AM) [facility] AND [id number] 14:33:00 Test Item Value Reference Range Interpretation Comments UA Bili (test code = Negative *NA*(04/07/15 UA Bili) 8:33 AM) [facility] AND [id number] 14:33:00 Test Item Value Reference Range Interpretation Comments UA Urobilinogen (test code = UA 0.2 0.1-1.0 Urobilinogen) [facility] AND [id number] 14:33:00 Test Item Value Reference Range Interpretation Comments UA Blood (test code = Large *ABN*(04/07/15 UA Blood) 8:33 AM) [facility] AND [id number] 14:33:00 Test Item Value Reference Range Interpretation Comments UA Leuk Est (test Negative (04/07/15 8:33 code = UA Leuk Est) AM) [facility] AND [id number] 14:33:00 Test Item Value Reference Range Interpretation Comments UA Nitrite (test code Negative (04/07/15 8:33 = UA Nitrite) AM) [facility] AND [id number] 14:33:00 Test Item Value Reference Range Interpretation Comments UA Turbidity (test code = Clear (04/07/15 8:33 UA Turbidity) AM) [facility] AND [id number] 14:33:00 Test Item Value Reference Range Interpretation Comments UA Color (test code = Yellow *NA*(04/07/15 UA Color) 8:33 AM) [facility] AND [id number] 14:33:00 Test Item Value Reference Range Interpretation Comments UA Mucus (test code = UA Mucus) Few /LPF [facility] AND [id number] 14:33:00 Test Item Value Reference Range Interpretation Comments UA Bacteria (test code = UA Occasional /HPF Bacteria) [facility] AND [id number] 14:33:00 Test Item Value Reference Range Interpretation Comments UA WBC (test code = UA WBC) 0-2 /HPF [facility] AND [id number] 14:33:00 Test Item Value Reference Range Interpretation Comments UA Sq Epi (test code = UA Sq Epi) Few /LPF [facility] AND [id number] 14:33:00 Test Item Value Reference Range Interpretation Comments Micro? (test code = Performed (04/07/15 8:33 Micro?) AM) [facility] AND [id number] 14:33:00 Test Item Value Reference Range Interpretation Comments UA RBC (test code = 3-5 /HPF See_Comment [Automa kuldip message] The UA RBC) system which ge nerated this result tra nsmitted reference range : <=2. The reference range was not used to interpr et this result as abiodun l/abnormal. [facility] AND [id number] 14:33:00 Test Item Value Reference Range Interpretation Comments UA Spec Grav (test code = UA Spec 1.020 1 Grav) [facility] AND [id number] 14:33:00 Test Item Value Reference Range Interpretation Comments UA Protein (test code = Trace *ABN*(04/07/15 UA Protein) 8:33 AM) [facility] AND [id number] 14:33:00 Test Item Value Reference Range Interpretation Comments UA pH (test code = UA pH) 6.5 1 5.0-8.0 [facility] AND [id number] 14:33:00 Test Item Value Reference Range Interpretation Comments UA Ketones (test code Negative *NA*(04/07/15 = UA Ketones) 8:33 AM) [facility] AND [id number] 14:33:00 Test Item Value Reference Range Interpretation Comments UA Glucose (test code Negative (04/07/15 8:33 = UA Glucose) AM) [facility] AND [id number] 14:33:00 Test Item Value Reference Range Interpretation Comments UA Bili (test code = Negative *NA*(04/07/15 UA Bili) 8:33 AM) [facility] AND [id number] 14:33:00 Test Item Value Reference Range Interpretation Comments UA Urobilinogen (test code = UA 0.2 0.1-1.0 Urobilinogen) [facility] AND [id number] 14:33:00 Test Item Value Reference Range Interpretation Comments UA Blood (test code = Large *ABN*(04/07/15 UA Blood) 8:33 AM) [facility] AND [id number] 14:33:00 Test Item Value Reference Range Interpretation Comments UA Leuk Est (test Negative (04/07/15 8:33 code = UA Leuk Est) AM) [facility] AND [id number] 14:33:00 Test Item Value Reference Range Interpretation Comments UA Nitrite (test code Negative (04/07/15 8:33 = UA Nitrite) AM) [facility] AND [id number] 14:33:00 Test Item Value Reference Range Interpretation Comments UA Turbidity (test code = Clear (04/07/15 8:33 UA Turbidity) AM) [facility] AND [id number] 14:33:00 Test Item Value Reference Range Interpretation Comments UA Color (test code = Yellow *NA*(04/07/15 UA Color) 8:33 AM) [facility] AND [id number] 14:33:00 Test Item Value Reference Range Interpretation Comments UA Mucus (test code = UA Mucus) Few /LPF [facility] AND [id number] 14:33:00 Test Item Value Reference Range Interpretation Comments UA Bacteria (test code = UA Occasional /HPF Bacteria) [facility] AND [id number] 14:33:00 Test Item Value Reference Range Interpretation Comments UA WBC (test code = UA WBC) 0-2 /HPF [facility] AND [id number] 14:33:00 Test Item Value Reference Range Interpretation Comments UA Sq Epi (test code = UA Sq Epi) Few /LPF [facility] AND [id number] 14:33:00 Test Item Value Reference Range Interpretation Comments Micro? (test code = Performed (04/07/15 8:33 Micro?) AM) [facility] AND [id number] 14:33:00 Test Item Value Reference Range Interpretation Comments UA RBC (test code = 3-5 /HPF See_Comment [Automa kuldip message] The UA RBC) system which ge nerated this result tra nsmitted reference range : <=2. The reference range was not used to interpr et this result as abiodun l/abnormal. [facility] AND [id number] 14:33:00 Test Item Value Reference Range Interpretation Comments UA Spec Grav (test code = UA Spec 1.020 1 Grav) [facility] AND [id number] 14:33:00 Test Item Value Reference Range Interpretation Comments UA Protein (test code = Trace *ABN*(04/07/15 UA Protein) 8:33 AM) [facility] AND [id number] 14:33:00 Test Item Value Reference Range Interpretation Comments UA pH (test code = UA pH) 6.5 1 5.0-8.0 [facility] AND [id number] 14:33:00 Test Item Value Reference Range Interpretation Comments UA Ketones (test code Negative *NA*(04/07/15 = UA Ketones) 8:33 AM) [facility] AND [id number] 14:33:00 Test Item Value Reference Range Interpretation Comments UA Glucose (test code Negative (04/07/15 8:33 = UA Glucose) AM) [facility] AND [id number] 14:33:00 Test Item Value Reference Range Interpretation Comments UA Bili (test code = Negative *NA*(04/07/15 UA Bili) 8:33 AM) [facility] AND [id number] 14:33:00 Test Item Value Reference Range Interpretation Comments UA Urobilinogen (test code = UA 0.2 0.1-1.0 Urobilinogen) [facility] AND [id number] 14:33:00 Test Item Value Reference Range Interpretation Comments UA Blood (test code = Large *ABN*(04/07/15 UA Blood) 8:33 AM) [facility] AND [id number] 14:33:00 Test Item Value Reference Range Interpretation Comments UA Leuk Est (test Negative (04/07/15 8:33 code = UA Leuk Est) AM) [facility] AND [id number] 14:33:00 Test Item Value Reference Range Interpretation Comments UA Nitrite (test code Negative (04/07/15 8:33 = UA Nitrite) AM) [facility] AND [id number] 14:33:00 Test Item Value Reference Range Interpretation Comments UA Turbidity (test code = Clear (04/07/15 8:33 UA Turbidity) AM) [facility] AND [id number] 14:33:00 Test Item Value Reference Range Interpretation Comments UA Color (test code = Yellow *NA*(04/07/15 UA Color) 8:33 AM) [facility] AND [id number] 14:33:00 Test Item Value Reference Range Interpretation Comments UA Mucus (test code = UA Mucus) Few /LPF [facility] AND [id number] 14:33:00 Test Item Value Reference Range Interpretation Comments UA Bacteria (test code = UA Occasional /HPF Bacteria) [facility] AND [id number] 14:33:00 Test Item Value Reference Range Interpretation Comments UA WBC (test code = UA WBC) 0-2 /HPF [facility] AND [id number] 14:33:00 Test Item Value Reference Range Interpretation Comments UA Sq Epi (test code = UA Sq Epi) Few /LPF [facility] AND [id number] 14:33:00 Test Item Value Reference Range Interpretation Comments Micro? (test code = Performed (04/07/15 8:33 Micro?) AM) [facility] AND [id number] 14:33:00 Test Item Value Reference Range Interpretation Comments UA RBC (test code = 3-5 /HPF See_Comment [Automa kuldip message] The UA RBC) system which ge nerated this result tra nsmitted reference range : <=2. The reference range was not used to interpr et this result as abiodun l/abnormal. [facility] AND [id number] 14:33:00 Test Item Value Reference Range Interpretation Comments UA Spec Grav (test code = UA Spec 1.020 1 Grav) [facility] AND [id number] 14:33:00 Test Item Value Reference Range Interpretation Comments UA Protein (test code = Trace *ABN*(04/07/15 UA Protein) 8:33 AM) [facility] AND [id number] 14:33:00 Test Item Value Reference Range Interpretation Comments UA pH (test code = UA pH) 6.5 1 5.0-8.0 [facility] AND [id number] 14:33:00 Test Item Value Reference Range Interpretation Comments UA Ketones (test code Negative *NA*(04/07/15 = UA Ketones) 8:33 AM) [facility] AND [id number] 14:33:00 Test Item Value Reference Range Interpretation Comments UA Glucose (test code Negative (04/07/15 8:33 = UA Glucose) AM) [facility] AND [id number] 14:33:00 Test Item Value Reference Range Interpretation Comments UA Bili (test code = Negative *NA*(04/07/15 UA Bili) 8:33 AM) [facility] AND [id number] 14:33:00 Test Item Value Reference Range Interpretation Comments UA Urobilinogen (test code = UA 0.2 0.1-1.0 Urobilinogen) [facility] AND [id number] 14:33:00 Test Item Value Reference Range Interpretation Comments UA Blood (test code = Large *ABN*(04/07/15 UA Blood) 8:33 AM) [facility] AND [id number] 14:33:00 Test Item Value Reference Range Interpretation Comments UA Leuk Est (test Negative (04/07/15 8:33 code = UA Leuk Est) AM) [facility] AND [id number] 14:33:00 Test Item Value Reference Range Interpretation Comments UA Nitrite (test code Negative (04/07/15 8:33 = UA Nitrite) AM) [facility] [id number] 14:33:00 Test Item Value Reference Range Interpretation Comments UA Turbidity (test code = Clear (04/07/15 8:33 UA Turbidity) AM) [facility] AND [id number] 14:33:00 Test Item Value Reference Range Interpretation Comments UA Color (test code = Yellow *NA*(04/07/15 UA Color) 8:33 AM) [facility] AND [id number] 14:33:00 Test Item Value Reference Range Interpretation Comments UA Mucus (test code = UA Mucus) Few /LPF [facility] AND [id number] 14:33:00 Test Item Value Reference Range Interpretation Comments UA Bacteria (test code = UA Occasional /HPF Bacteria) [facility] AND [id number] 14:33:00 Test Item Value Reference Range Interpretation Comments UA WBC (test code = UA WBC) 0-2 /HPF [facility] AND [id number] 14:33:00 Test Item Value Reference Range Interpretation Comments UA Sq Epi (test code = UA Sq Epi) Few /LPF [facility] AND [id number] 14:33:00 Test Item Value Reference Range Interpretation Comments Micro? (test code = Performed (04/07/15 8:33 Micro?) AM) [facility] AND [id number] 14:33:00 Test Item Value Reference Range Interpretation Comments UA RBC (test code = 3-5 /HPF See_Comment [Automa kuldip message] The UA RBC) system which ge nerated this result tra nsmitted reference range : <=2. The reference range was not used to interpr et this result as abiodun l/abnormal. [facility] AND [id number] 14:33:00 Test Item Value Reference Range Interpretation Comments UA Spec Grav (test code = UA Spec 1.020 1 Grav) [facility] AND [id number] 14:33:00 Test Item Value Reference Range Interpretation Comments UA Protein (test code = Trace *ABN*(04/07/15 UA Protein) 8:33 AM) [facility] AND [id number] 14:33:00 Test Item Value Reference Range Interpretation Comments UA pH (test code = UA pH) 6.5 1 5.0-8.0 [facility] AND [id number] 14:33:00 Test Item Value Reference Range Interpretation Comments UA Ketones (test code Negative *NA*(04/07/15 = UA Ketones) 8:33 AM) [facility] AND [id number] 14:33:00 Test Item Value Reference Range Interpretation Comments UA Glucose (test code Negative (04/07/15 8:33 = UA Glucose) AM) [facility] AND [id number] 14:33:00 Test Item Value Reference Range Interpretation Comments UA Bili (test code = Negative *NA*(04/07/15 UA Bili) 8:33 AM) [facility] AND [id number] 14:33:00 Test Item Value Reference Range Interpretation Comments UA Urobilinogen (test code = UA 0.2 0.1-1.0 Urobilinogen) [facility] AND [id number] 14:33:00 Test Item Value Reference Range Interpretation Comments UA Blood (test code = Large *ABN*(04/07/15 UA Blood) 8:33 AM) [facility] AND [id number] 14:33:00 Test Item Value Reference Range Interpretation Comments UA Leuk Est (test Negative (04/07/15 8:33 code = UA Leuk Est) AM) [facility] AND [id number] 14:33:00 Test Item Value Reference Range Interpretation Comments UA Nitrite (test code Negative (04/07/15 8:33 = UA Nitrite) AM) [facility] AND [id number] 14:33:00 Test Item Value Reference Range Interpretation Comments UA Turbidity (test code = Clear (04/07/15 8:33 UA Turbidity) AM) [facility] AND [id number] 14:33:00 Test Item Value Reference Range Interpretation Comments UA Color (test code = Yellow *NA*(04/07/15 UA Color) 8:33 AM) [facility] AND [id number] 14:33:00 Test Item Value Reference Range Interpretation Comments UA Mucus (test code = UA Mucus) Few /LPF [facility] AND [id number] 14:33:00 Test Item Value Reference Range Interpretation Comments UA Bacteria (test code = UA Occasional /HPF Bacteria) [facility] AND [id number] 14:33:00 Test Item Value Reference Range Interpretation Comments UA WBC (test code = UA WBC) 0-2 /HPF [facility] AND [id number] 14:33:00 Test Item Value Reference Range Interpretation Comments UA Sq Epi (test code = UA Sq Epi) Few /LPF [facility] AND [id number] 14:33:00 Test Item Value Reference Range Interpretation Comments Micro? (test code = Performed (04/07/15 8:33 Micro?) AM) [facility] AND [id number] 14:33:00 Test Item Value Reference Range Interpretation Comments UA RBC (test code = 3-5 /HPF See_Comment [Automa kuldip message] The UA RBC) system which ge nerated this result tra nsmitted reference range : <=2. The reference range was not used to interpr et this result as abiodun l/abnormal. [facility] [id number] 13:28:00 Test Item Value Reference Range Interpretation Comments Troponin-I (test code no gt See_Comment [Auto mated message] The = Troponin-I) system which g enerated this result transmit kuldip reference range : <=0.40. The reference r nilam was not used to interpr et this result as abiodun l/abnormal. [facility] [id number] 13:28:00 Test Item Value Reference Range Interpretation Comments BNP (test code = BNP) 45 [facility] MentegramannCARNativeADAC [id number] 13:28:00 Test Item Value Reference Range Interpretation Comments CK MB (test code = CK MB) 1.2 0.5-3.6 [facility] MentegramannCARNativeADAC [id number] 13:28:00 Test Item Value Reference Range Interpretation Comments Total CK (test code = Total CK) 219 12-191 [facility] [employer] [id number] 13:28:00 Test Item Value Reference Range Interpretation Comments CK MB Index (test 0.5 See_Comment [Automate d message] The code = CK MB Index) system w [employer] generated this result transmit kuldip reference range : <=2.5. The reference range was not used to interpr et this result as abiodun l/abnormal. [employer]2016-01-13 13:28:00 Test Item Value Reference Range Interpretation Comments eGFR (test code = eGFR) 115 [facility] [employer] [id number] 13:28:00 Test Item Value Reference Range Interpretation Comments AGAP (test code = AGAP) 15.0 10.0-20.0 [facility] 250ok2016-01-13 13:28:00 Test Item Value Reference Range Interpretation Comments Bili Total (test code = Bili Total) 0.2 0.2-1.3 [facility] 250ok2016-01-13 13:28:00 Test Item Value Reference Range Interpretation Comments A/G Ratio (test code = A/G Ratio) 0.6 0.7-1.6 [facility] 250ok2016-01-13 13:28:00 Test Item Value Reference Range Interpretation Comments Globulin (test code = Globulin) 5.4 2.0-4.0 [facility] 250ok2016-01-13 13:28:00 Test Item Value Reference Range Interpretation Comments B/C Ratio (test code = B/C Ratio) 12 6-25 [facility] 250ok2016-01-13 13:28:00 Test Item Value Reference Range Interpretation Comments Alk Phos (test code = Alk Phos) 107 39-136 [facility] 250ok2016-01-13 13:28:00 Test Item Value Reference Range Interpretation Comments ALT (test code = ALT) 24 See_Comment [Auto mated message] The system which ge nerated this result transmit kuldip reference range : <=65. The reference range was not used to interpr et this result as abiodun l/abnormal. [facility]2016-01-13 13:28:00 Test Item Value Reference Range Interpretation Comments AST (test code = AST) 19 See_Comment [Auto mated message] The system which ge nerated this result transmit kuldip reference range : <=37. The reference range was not used to interpr et this result as abiodun l/abnormal. [place] 188936-01-13 13:28:00 Test Item Value Reference Range Interpretation Comments CO2 (test code = CO2) 24 24-32 [facility]2016-01-13 13:28:00 Test Item Value Reference Range Interpretation Comments Calcium Lvl (test code = Calcium Lvl) 9.5 8.5-10.5 [facility]2016-01-13 13:28:00 Test Item Value Reference Range Interpretation Comments Total Protein (test code = Total 8.4 6.4-8.4 Protein) [facility]2016-01-13 13:28:00 Test Item Value Reference Range Interpretation Comments BUN (test code = BUN) 9 7-22 [facility]2016-01-13 13:28:00 Test Item Value Reference Range Interpretation Comments Albumin Lvl (test code = Albumin Lvl) 3.0 3.5-5.0 [facility]2016-01-13 13:28:00 Test Item Value Reference Range Interpretation Comments Creatinine Lvl (test code = Creatinine 0.75 0.50-1.40 Lvl) [facility]2016-01-13 13:28:00 Test Item Value Reference Range Interpretation Comments Sodium Lvl (test code = Sodium Lvl) 139 135-145 [facility]2016-01-13 13:28:00 Test Item Value Reference Range Interpretation Comments Potassium Lvl (test code = Potassium 4.0 3.5-5.1 Lvl) [facility]2016-01-13 13:28:00 Test Item Value Reference Range Interpretation Comments Chloride Lvl (test code = Chloride Lvl) 104 95-109 [facility]2016-01-13 13:28:00 Test Item Value Reference Range Interpretation Comments Glucose Lvl (test code = Glucose Lvl) 118 70-99 [facility]MglzcurCTVAGZAKXT4134-00-82 13:28:00 Test Item Value Reference Range Interpretation Comments Hgb (test code = Hgb) 9.2 12.0-16.0 [facility] CenterQatepvkLJJVZVCUDT1631-40-65 13:28:00 Test Item Value Reference Range Interpretation Comments MCV (test code = MCV) 71.0 80.0-98.0 [facility] CenterGzydsdiMNJGGRXKIJ1220-63-08 13:28:00 Test Item Value Reference Range Interpretation Comments MCH (test code = MCH) 21.4 pg 27.0-31.0 [facility] CenterYaiowvnEBEIQRPOPN8237-46-94 13:28:00 Test Item Value Reference Range Interpretation Comments Platelet (test code = Platelet) 280 133-450 [facility] CenterXdyqhhjXCSPJRXJMN8230-54-14 13:28:00 Test Item Value Reference Range Interpretation Comments MPV (test code = MPV) 8.0 7.4-10.4 [facility] CenterXblslxyTAVLWTAQZZ3520-29-60 13:28:00 Test Item Value Reference Range Interpretation Comments RDW (test code = RDW) 18.0 11.5-14.5 [facility] CenterNdcgyniTJBYMFQRND9231-16-40 13:28:00 Test Item Value Reference Range Interpretation Comments MCHC (test code = MCHC) 30.1 32.0-36.0 [facility] CenterLcfhipiDVCKXKHNPS5297-66-66 13:28:00 Test Item Value Reference Range Interpretation Comments WBC (test code = WBC) 9.0 3.7-10.4 [facility] CenterAndxnpiNMIXRLPIQL5091-14-07 13:28:00 Test Item Value Reference Range Interpretation Comments RBC (test code = RBC) 4.30 4.20-5.40 [facility] CenterQdvjklfVMEDROAEEM6301-04-42 13:28:00 Test Item Value Reference Range Interpretation Comments Hct (test code = Hct) 30.5 36.0-48.0 [facility] CenterKshpnhmDHFJLYRCHC8861-24-89 13:28:00 Test Item Value Reference Range Interpretation Comments Segs (test code = Segs) 84.7 45.0-75.0 [facility] CenterAbutpzkJCJFBNGKIE2264-32-91 13:28:00 Test Item Value Reference Range Interpretation Comments Lymphocytes (test code = Lymphocytes) 9.4 20.0-40.0 [facility] CenterQesfdyqILSDVSJVUU6099-41-74 13:28:00 Test Item Value Reference Range Interpretation Comments Eosinophils # (test code 0.0 See_Comment [A utomated message] The = Eosinophils #) system whic h generated this result tra nsmitted reference range : <=0.5. The reference r nilam was not used to int erpret this result as normal/abnormal . [facility] CenterKksutkaCZNMFQGIWI6005-28-01 13:28:00 Test Item Value Reference Range Interpretation Comments Lymphocytes # (test code = Lymphocytes 0.8 1.0-5.5 #) [facility] CenterXxnsqwrFJUNULNCJH3695-07-43 13:28:00 Test Item Value Reference Range Interpretation Comments Monocytes # (test code 0.5 See_Comment [Aut omated message] The = Monocytes #) system which generated this result tra nsmitted reference range : <=0.8. The reference r nilam was not used to int erpret this result as normal/abnormal . [facility] CenterUnxkaukYQFUMIVSBI5849-49-14 13:28:00 Test Item Value Reference Range Interpretation Comments Segs-Bands # (test code = Segs-Bands #) 7.6 1.5-8.1 [facility] CenterWtqwstjLIBEDPLXCX7896-34-80 13:28:00 Test Item Value Reference Range Interpretation Comments Monocytes (test code = Monocytes) 5.4 2.0-12.0 [facility] CenterCecsqoqECHAFURBMU7461-55-88 13:28:00 Test Item Value Reference Range Interpretation Comments Eosinophils (test code = 0.3 See_Comment [A utomated message] The Eosinophils) system which ge nerated this result tra nsmitted reference range : <=4.0. The reference r nilam was not used to int erpret this result as normal/abnormal . [facility] CenterPzwnarvZKTTWIXHQA9557-11-14 13:28:00 Test Item Value Reference Range Interpretation Comments Basophils (test code = 0.2 See_Comment [Aut omated message] The Basophils) system which ge nerated this result tra nsmitted reference range : <=1.0. The reference r nilam was not used to int erpret this result as normal/abnormal . [facility] CenterFzngcidHIJGPPLSEA3566-70-44 13:28:00 Test Item Value Reference Range Interpretation Comments Basophils # (test code 0.0 See_Comment [Aut omated message] The = Basophils #) system which generated this result tra nsmitted reference range : <=0.2. The reference r nilam was not used to int erpret this result as normal/abnormal . [employer]2016-01-13 13:28:00 Test Item Value Reference Range Interpretation Comments Troponin-I (test code no gt See_Comment [Auto mated message] The = Troponin-I) system which g enerated this result transmit kuldip reference range : <=0.40. The reference r nilam was not used to interpr et this result as abiodun l/abnormal. [employer]2016-01-13 13:28:00 Test Item Value Reference Range Interpretation Comments BNP (test code = BNP) 45 [facility] [employer] [id number] 13:28:00 Test Item Value Reference Range Interpretation Comments CK MB (test code = CK MB) 1.2 0.5-3.6 [facility] [employer] [facility]2016-01-13 13:28:00 Test Item Value Reference Range Interpretation Comments Total CK (test code = Total CK) 219 12-191 [facility] [employer] [facility]2016-01-13 13:28:00 Test Item Value Reference Range Interpretation Comments CK MB Index (test 0.5 See_Comment [Automate d message] The code = CK MB Index) system w [facility] generated this result transmit kuldip reference range : <=2.5. The reference range was not used to interpr et this result as abiodun l/abnormal. [employer]2016-01-13 13:28:00 Test Item Value Reference Range Interpretation Comments eGFR (test code = eGFR) 115 [facility] [employer] [id number] 13:28:00 Test Item Value Reference Range Interpretation Comments AGAP (test code = AGAP) 15.0 10.0-20.0 [employer]2016-01-13 13:28:00 Test Item Value Reference Range Interpretation Comments Bili Total (test code = Bili Total) 0.2 0.2-1.3 [employer]2016-01-13 13:28:00 Test Item Value Reference Range Interpretation Comments A/G Ratio (test code = A/G Ratio) 0.6 0.7-1.6 [place] 188936-01-13 13:28:00 Test Item Value Reference Range Interpretation Comments Globulin (test code = Globulin) 5.4 2.0-4.0 [facility]2016-01-13 13:28:00 Test Item Value Reference Range Interpretation Comments B/C Ratio (test code = B/C Ratio) 12 6-25 [facility]2016-01-13 13:28:00 Test Item Value Reference Range Interpretation Comments Alk Phos (test code = Alk Phos) 107 39-136 [facility]2016-01-13 13:28:00 Test Item Value Reference Range Interpretation Comments ALT (test code = ALT) 24 See_Comment [Auto mated message] The system which ge nerated this result transmit kuldip reference range : <=65. The reference range was not used to interpr et this result as abiodun l/abnormal. [facility]2016-01-13 13:28:00 Test Item Value Reference Range Interpretation Comments AST (test code = AST) 19 See_Comment [Auto mated message] The system which ge nerated this result transmit kuldip reference range : <=37. The reference range was not used to interpr et this result as abiodun l/abnormal. [facility]2016-01-13 13:28:00 Test Item Value Reference Range Interpretation Comments CO2 (test code = CO2) 24 24-32 [facility]2016-01-13 13:28:00 Test Item Value Reference Range Interpretation Comments Calcium Lvl (test code = Calcium Lvl) 9.5 8.5-10.5 [facility]2016-01-13 13:28:00 Test Item Value Reference Range Interpretation Comments Total Protein (test code = Total 8.4 6.4-8.4 Protein) [facility]2016-01-13 13:28:00 Test Item Value Reference Range Interpretation Comments BUN (test code = BUN) 9 7-22 [facility]2016-01-13 13:28:00 Test Item Value Reference Range Interpretation Comments Albumin Lvl (test code = Albumin Lvl) 3.0 3.5-5.0 [facility]2016-01-13 13:28:00 Test Item Value Reference Range Interpretation Comments Creatinine Lvl (test code = Creatinine 0.75 0.50-1.40 Lvl) [facility]2016-01-13 13:28:00 Test Item Value Reference Range Interpretation Comments Sodium Lvl (test code = Sodium Lvl) 139 135-145 [facility]2016-01-13 13:28:00 Test Item Value Reference Range Interpretation Comments Potassium Lvl (test code = Potassium 4.0 3.5-5.1 Lvl) [facility]2016-01-13 13:28:00 Test Item Value Reference Range Interpretation Comments Chloride Lvl (test code = Chloride Lvl) 104 95-109 [facility]2016-01-13 13:28:00 Test Item Value Reference Range Interpretation Comments Glucose Lvl (test code = Glucose Lvl) 118 70-99 [facility] CenterDxqelbrYDINTZRCJC7927-50-62 13:28:00 Test Item Value Reference Range Interpretation Comments Hgb (test code = Hgb) 9.2 12.0-16.0 [place] 243556-01-13 13:28:00 Test Item Value Reference Range Interpretation Comments MCV (test code = MCV) 71.0 80.0-98.0 [facility] CenterVkppqwwMLLCYGPQIM3173-88-91 13:28:00 Test Item Value Reference Range Interpretation Comments MCH (test code = MCH) 21.4 pg 27.0-31.0 [facility] CenterUwptxeyXKVNEJAIRL9657-35-25 13:28:00 Test Item Value Reference Range Interpretation Comments Platelet (test code = Platelet) 280 133-450 [facility] CenterOhdwvmmWIRVJGYJKT1491-04-54 13:28:00 Test Item Value Reference Range Interpretation Comments MPV (test code = MPV) 8.0 7.4-10.4 [facility] CenterKpwusycUOIMMLCPFN8219-69-97 13:28:00 Test Item Value Reference Range Interpretation Comments RDW (test code = RDW) 18.0 11.5-14.5 [facility] CenterGhkongnDVYOJHHTHF1040-69-37 13:28:00 Test Item Value Reference Range Interpretation Comments MCHC (test code = MCHC) 30.1 32.0-36.0 [facility] CenterUnmfkpcHBCPGVLJUF3895-59-19 13:28:00 Test Item Value Reference Range Interpretation Comments WBC (test code = WBC) 9.0 3.7-10.4 [facility] CenterDokponnFPNQFKYOLR7551-74-57 13:28:00 Test Item Value Reference Range Interpretation Comments RBC (test code = RBC) 4.30 4.20-5.40 [facility] CenterSnymszzRQFTCZEXAD7299-12-26 13:28:00 Test Item Value Reference Range Interpretation Comments Hct (test code = Hct) 30.5 36.0-48.0 [facility] CenterKfthsrzSHJFLAUATQ1370-33-54 13:28:00 Test Item Value Reference Range Interpretation Comments Segs (test code = Segs) 84.7 45.0-75.0 [facility] CenterWdxumilRAJMKFRMOA9989-32-47 13:28:00 Test Item Value Reference Range Interpretation Comments Lymphocytes (test code = Lymphocytes) 9.4 20.0-40.0 [facility] CenterCwngtpaVXRFPPUKFD9328-71-14 13:28:00 Test Item Value Reference Range Interpretation Comments Eosinophils # (test code 0.0 See_Comment [A utomated message] The = Eosinophils #) system whic h generated this result tra nsmitted reference range : <=0.5. The reference r nilam was not used to int erpret this result as normal/abnormal . [facility] CenterFosiwzrIBEXSPBEYI6276-68-38 13:28:00 Test Item Value Reference Range Interpretation Comments Lymphocytes # (test code = Lymphocytes 0.8 1.0-5.5 #) [facility] CenterKpbkqkuGXUDXQJGTM4244-50-70 13:28:00 Test Item Value Reference Range Interpretation Comments Monocytes # (test code 0.5 See_Comment [Aut omated message] The = Monocytes #) system which generated this result tra nsmitted reference range : <=0.8. The reference r nilam was not used to int erpret this result as normal/abnormal . [facility] CenterGojkxwtUGJSIKBCLK7218-08-97 13:28:00 Test Item Value Reference Range Interpretation Comments Segs-Bands # (test code = Segs-Bands #) 7.6 1.5-8.1 [facility] CenterWaxnfnyHWLQVAKDEN4614-56-07 13:28:00 Test Item Value Reference Range Interpretation Comments Monocytes (test code = Monocytes) 5.4 2.0-12.0 [facility] CenterVnsrmibONKMYKTKLX7071-45-08 13:28:00 Test Item Value Reference Range Interpretation Comments Eosinophils (test code = 0.3 See_Comment [A utomated message] The Eosinophils) system which ge nerated this result tra nsmitted reference range : <=4.0. The reference r nilam was not used to int erpret this result as normal/abnormal . [facility] BkujvmjRUQZQOKCGJ8793-89-99 13:28:00 Test Item Value Reference Range Interpretation Comments Basophils (test code = 0.2 See_Comment [Aut omated message] The Basophils) system which ge nerated this result tra nsmitted reference range : <=1.0. The reference r nilam was not used to int erpret this result as normal/abnormal . [facility] LfuxwngCGQRZUZODN2978-44-43 13:28:00 Test Item Value Reference Range Interpretation Comments Basophils # (test code 0.0 See_Comment [Aut omated message] The = Basophils #) system which generated this result tra nsmitted reference range : <=0.2. The reference r nilam was not used to int erpret this result as normal/abnormal . [facility] [employer]ARN[employer]AD[employer] QOHHWHD1331-46-75 13:28:00 Test Item Value Reference Range Interpretation Comments Troponin-I (test code no gt See_Comment [Auto mated message] The = Troponin-I) system which g enerated this result transmit kuldip reference range : <=0.40. The reference r nilam was not used to interpr et this result as abiodun l/abnormal. [facility] [employer] IAWMVKM1656-09-15 13:28:00 Test Item Value Reference Range Interpretation Comments BNP (test code = BNP) 45 [facility] [employer]CARDI[employer] WLLVZTC1328-67-72 13:28:00 Test Item Value Reference Range Interpretation Comments CK MB (test code = CK MB) 1.2 0.5-3.6 [facility] [employer] QVOCFIP4726-40-04 13:28:00 Test Item Value Reference Range Interpretation Comments Total CK (test code = Total CK) 219 12-191 [facility] [employer] NDFVMKW2176-75-03 13:28:00 Test Item Value Reference Range Interpretation Comments CK MB Index (test 0.5 See_Comment [Automate d message] The code = CK MB Index) system w [facility] generated this result transmit kuldip reference range : <=2.5. The reference range was not used to interpr et this result as abiodun l/abnormal. [facility] [employer] CompaniesCHEM [id number] 13:28:00 Test Item Value Reference Range Interpretation Comments eGFR (test code = eGFR) 115 [facility]2016-01-13 13:28:00 Test Item Value Reference Range Interpretation Comments AGAP (test code = AGAP) 15.0 10.0-20.0 [facility]2016-01-13 13:28:00 Test Item Value Reference Range Interpretation Comments Bili Total (test code = Bili Total) 0.2 0.2-1.3 [facility]2016-01-13 13:28:00 Test Item Value Reference Range Interpretation Comments A/G Ratio (test code = A/G Ratio) 0.6 0.7-1.6 [place] 188936-01-13 13:28:00 Test Item Value Reference Range Interpretation Comments Globulin (test code = Globulin) 5.4 2.0-4.0 [facility]2016-01-13 13:28:00 Test Item Value Reference Range Interpretation Comments B/C Ratio (test code = B/C Ratio) 12 6-25 [facility]2016-01-13 13:28:00 Test Item Value Reference Range Interpretation Comments Alk Phos (test code = Alk Phos) 107 39-136 [facility]2016-01-13 13:28:00 Test Item Value Reference Range Interpretation Comments ALT (test code = ALT) 24 See_Comment [Auto mated message] The system which ge nerated this result transmit kuldip reference range : <=65. The reference range was not used to interpr et this result as abioudn l/abnormal. [facility]2016-01-13 13:28:00 Test Item Value Reference Range Interpretation Comments AST (test code = AST) 19 See_Comment [Auto mated message] The system which ge nerated this result transmit kuldip reference range : <=37. The reference range was not used to interpr et this result as abiodun l/abnormal. [facility]2016-01-13 13:28:00 Test Item Value Reference Range Interpretation Comments CO2 (test code = CO2) 24 24-32 [place] 188936-01-13 13:28:00 Test Item Value Reference Range Interpretation Comments Calcium Lvl (test code = Calcium Lvl) 9.5 8.5-10.5 [facility]2016-01-13 13:28:00 Test Item Value Reference Range Interpretation Comments Total Protein (test code = Total 8.4 6.4-8.4 Protein) [facility]2016-01-13 13:28:00 Test Item Value Reference Range Interpretation Comments BUN (test code = BUN) 9 7-22 [place] 188936-01-13 13:28:00 Test Item Value Reference Range Interpretation Comments Albumin Lvl (test code = Albumin Lvl) 3.0 3.5-5.0 [place] 188936-01-13 13:28:00 Test Item Value Reference Range Interpretation Comments Creatinine Lvl (test code = Creatinine 0.75 0.50-1.40 Lvl) [place] 188936-01-13 13:28:00 Test Item Value Reference Range Interpretation Comments Sodium Lvl (test code = Sodium Lvl) 139 135-145 [place] 188936-01-13 13:28:00 Test Item Value Reference Range Interpretation Comments Potassium Lvl (test code = Potassium 4.0 3.5-5.1 Lvl) [facility]2016-01-13 13:28:00 Test Item Value Reference Range Interpretation Comments Chloride Lvl (test code = Chloride Lvl) 104 95-109 [facility]2016-01-13 13:28:00 Test Item Value Reference Range Interpretation Comments Glucose Lvl (test code = Glucose Lvl) 118 70-99 [facility] CenterSfmyhhfPUBEFBWRQL0176-47-10 13:28:00 Test Item Value Reference Range Interpretation Comments Hgb (test code = Hgb) 9.2 12.0-16.0 [facility] CenterXqyveazSDKWFAVHWH4720-69-31 13:28:00 Test Item Value Reference Range Interpretation Comments MCV (test code = MCV) 71.0 80.0-98.0 [facility] CenterSrphwxjSVOPSKTASQ6234-13-61 13:28:00 Test Item Value Reference Range Interpretation Comments MCH (test code = MCH) 21.4 pg 27.0-31.0 [facility] CenterZdliggvDDXEDXBKBQ2569-99-00 13:28:00 Test Item Value Reference Range Interpretation Comments Platelet (test code = Platelet) 280 133-450 [facility] CenterGntldmpLIXAVMLZEK8275-33-05 13:28:00 Test Item Value Reference Range Interpretation Comments MPV (test code = MPV) 8.0 7.4-10.4 [facility] CenterOhfgwdlJRXWUDFMUB4565-40-40 13:28:00 Test Item Value Reference Range Interpretation Comments RDW (test code = RDW) 18.0 11.5-14.5 [facility] CenterIfuqahaBRMZAZKIQP6993-52-29 13:28:00 Test Item Value Reference Range Interpretation Comments MCHC (test code = MCHC) 30.1 32.0-36.0 [facility] CenterWbowfxoWBCRZSHSJI8131-18-35 13:28:00 Test Item Value Reference Range Interpretation Comments WBC (test code = WBC) 9.0 3.7-10.4 [facility] CenterSirjjrhZVAKFUEURB1066-03-25 13:28:00 Test Item Value Reference Range Interpretation Comments RBC (test code = RBC) 4.30 4.20-5.40 [facility] CenterXjcsrswAGMVMSMQXT4392-76-52 13:28:00 Test Item Value Reference Range Interpretation Comments Hct (test code = Hct) 30.5 36.0-48.0 [facility] CenterIljlyokDBGCIOVWHV3869-21-19 13:28:00 Test Item Value Reference Range Interpretation Comments Segs (test code = Segs) 84.7 45.0-75.0 [facility]YozrorcAZXSKFQNMP1939-55-93 13:28:00 Test Item Value Reference Range Interpretation Comments Lymphocytes (test code = Lymphocytes) 9.4 20.0-40.0 [facility] CenterPncbdgzIWQLKPIPVZ9489-73-83 13:28:00 Test Item Value Reference Range Interpretation Comments Eosinophils # (test code 0.0 See_Comment [A utomated message] The = Eosinophils #) system wh h generated this result tra nsmitted reference range : <=0.5. The reference r nilam was not used to int erpret this result as normal/abnormal . [facility] CenterPmvacvpOPGIMXALPM8839-52-27 13:28:00 Test Item Value Reference Range Interpretation Comments Lymphocytes # (test code = Lymphocytes 0.8 1.0-5.5 #) [facility] CenterYhoejaoSXIEUQQDFL5830-34-91 13:28:00 Test Item Value Reference Range Interpretation Comments Monocytes # (test code 0.5 See_Comment [Aut omated message] The = Monocytes #) system which generated this result tra nsmitted reference range : <=0.8. The reference r nilam was not used to int erpret this result as normal/abnormal . [facility] CenterSfihozsLVKSSMGRVC4682-41-23 13:28:00 Test Item Value Reference Range Interpretation Comments Segs-Bands # (test code = Segs-Bands #) 7.6 1.5-8.1 [facility]ijorzmOXZBOAHXFC7389-54-25 13:28:00 Test Item Value Reference Range Interpretation Comments Monocytes (test code = Monocytes) 5.4 2.0-12.0 [facility] HospitalTekdahwOCGXARUSUF4856-82-02 13:28:00 Test Item Value Reference Range Interpretation Comments Eosinophils (test code = 0.3 See_Comment [A utomated message] The Eosinophils) system which ge nerated this result tra nsmitted reference range : <=4.0. The reference r nilam was not used to int erpret this result as normal/abnormal . [facility] HospitalFumthswCADFGVYMGR7459-38-99 13:28:00 Test Item Value Reference Range Interpretation Comments Basophils (test code = 0.2 See_Comment [Aut omated message] The Basophils) system which ge nerated this result tra nsmitted reference range : <=1.0. The reference r nilam was not used to int erpret this result as normal/abnormal . [facility] HospitalAgfhzqmQECYBUCLOC1591-33-63 13:28:00 Test Item Value Reference Range Interpretation Comments Basophils # (test code 0.0 See_Comment [Aut omated message] The = Basophils #) system which generated this result tra nsmitted reference range : <=0.2. The reference r nilam was not used to int erpret this result as normal/abnormal . [facility]inteSiriusXM CanadaJTCRZAF0171-98-35 13:28:00 Test Item Value Reference Range Interpretation Comments Troponin-I (test code no gt See_Comment [Auto mated message] The = Troponin-I) system which g enerated this result transmit kuldip reference range : <=0.40. The reference r nilam was not used to interpr et this result as abiodun l/abnormal. [facility] PointeSiriusXM CanadaUDSPIQM5980-61-52 13:28:00 Test Item Value Reference Range Interpretation Comments BNP (test code = BNP) 45 [facility] QLKIBVH0173-82-59 13:28:00 Test Item Value Reference Range Interpretation Comments CK MB (test code = CK MB) 1.2 0.5-3.6 [facility]2016-01-13 13:28:00 Test Item Value Reference Range Interpretation Comments Total CK (test code = Total CK) 219 12-191 [facility]Wikip[facility] GSBGXZJ7206-75-51 13:28:00 Test Item Value Reference Range Interpretation Comments CK MB Index (test 0.5 See_Comment [Automate d message] The code = CK MB Index) system w [facility] generated this result transmit kuldip reference range : <=2.5. The reference range was not used to interpr et this result as abiodun l/abnormal. [facility] [address]2016-01-13 13:28:00 Test Item Value Reference Range Interpretation Comments eGFR (test code = eGFR) 115 [facility]2016-01-13 13:28:00 Test Item Value Reference Range Interpretation Comments AGAP (test code = AGAP) 15.0 10.0-20.0 [facility]2016-01-13 13:28:00 Test Item Value Reference Range Interpretation Comments Bili Total (test code = Bili Total) 0.2 0.2-1.3 [facility]2016-01-13 13:28:00 Test Item Value Reference Range Interpretation Comments A/G Ratio (test code = A/G Ratio) 0.6 0.7-1.6 [facility]2016-01-13 13:28:00 Test Item Value Reference Range Interpretation Comments Globulin (test code = Globulin) 5.4 2.0-4.0 [facility]2016-01-13 13:28:00 Test Item Value Reference Range Interpretation Comments B/C Ratio (test code = B/C Ratio) 12 6-25 [facility]2016-01-13 13:28:00 Test Item Value Reference Range Interpretation Comments Alk Phos (test code = Alk Phos) 107 39-136 [facility]2016-01-13 13:28:00 Test Item Value Reference Range Interpretation Comments ALT (test code = ALT) 24 See_Comment [Auto mated message] The system which ge nerated this result transmit kuldip reference range : <=65. The reference range was not used to interpr et this result as abiodun l/abnormal. [facility]2016-01-13 13:28:00 Test Item Value Reference Range Interpretation Comments AST (test code = AST) 19 See_Comment [Auto mated message] The system which ge nerated this result transmit kuldip reference range : <=37. The reference range was not used to interpr et this result as abiodun l/abnormal. [facility]2016-01-13 13:28:00 Test Item Value Reference Range Interpretation Comments CO2 (test code = CO2) 24 24-32 [facility]2016-01-13 13:28:00 Test Item Value Reference Range Interpretation Comments Calcium Lvl (test code = Calcium Lvl) 9.5 8.5-10.5 [facility]2016-01-13 13:28:00 Test Item Value Reference Range Interpretation Comments Total Protein (test code = Total 8.4 6.4-8.4 Protein) [facility]2016-01-13 13:28:00 Test Item Value Reference Range Interpretation Comments BUN (test code = BUN) 9 7-22 [facility]2016-01-13 13:28:00 Test Item Value Reference Range Interpretation Comments Albumin Lvl (test code = Albumin Lvl) 3.0 3.5-5.0 [facility]2016-01-13 13:28:00 Test Item Value Reference Range Interpretation Comments Creatinine Lvl (test code = Creatinine 0.75 0.50-1.40 Lvl) [facility]2016-01-13 13:28:00 Test Item Value Reference Range Interpretation Comments Sodium Lvl (test code = Sodium Lvl) 139 135-145 [facility]2016-01-13 13:28:00 Test Item Value Reference Range Interpretation Comments Potassium Lvl (test code = Potassium 4.0 3.5-5.1 Lvl) [facility]2016-01-13 13:28:00 Test Item Value Reference Range Interpretation Comments Chloride Lvl (test code = Chloride Lvl) 104 95-109 [facility]2016-01-13 13:28:00 Test Item Value Reference Range Interpretation Comments Glucose Lvl (test code = Glucose Lvl) 118 70-99 [facility] CenterOwackbkTMJTOMIWFH6902-55-79 13:28:00 Test Item Value Reference Range Interpretation Comments Hgb (test code = Hgb) 9.2 12.0-16.0 [facility] CenterKtrxxsrFQNQOSDVZJ7406-85-69 13:28:00 Test Item Value Reference Range Interpretation Comments MCV (test code = MCV) 71.0 80.0-98.0 [facility] CenterJbpzgxlFOBONQVLVI9958-78-49 13:28:00 Test Item Value Reference Range Interpretation Comments MCH (test code = MCH) 21.4 pg 27.0-31.0 [facility] CenterYtvqypdKCLRNEYXXE3598-49-45 13:28:00 Test Item Value Reference Range Interpretation Comments Platelet (test code = Platelet) 280 133-450 [facility] CenterCafzyzmDFGHOWQGBO3525-05-51 13:28:00 Test Item Value Reference Range Interpretation Comments MPV (test code = MPV) 8.0 7.4-10.4 [facility] CenterGhjvcofKZALKKQLOJ8245-74-29 13:28:00 Test Item Value Reference Range Interpretation Comments RDW (test code = RDW) 18.0 11.5-14.5 [facility] CenterZzooxbaISMSDIDSEE2441-97-48 13:28:00 Test Item Value Reference Range Interpretation Comments MCHC (test code = MCHC) 30.1 32.0-36.0 [facility] CenterMgznctlJSYUSGLYVC4440-15-09 13:28:00 Test Item Value Reference Range Interpretation Comments WBC (test code = WBC) 9.0 3.7-10.4 [facility] CenterJxiorhiIGLDPOQFXU7759-59-50 13:28:00 Test Item Value Reference Range Interpretation Comments RBC (test code = RBC) 4.30 4.20-5.40 [facility] CenterOvsbmjrHJTWGJISFL6879-79-79 13:28:00 Test Item Value Reference Range Interpretation Comments Hct (test code = Hct) 30.5 36.0-48.0 [facility] CenterGgizjehBZIRVQURDN3926-09-96 13:28:00 Test Item Value Reference Range Interpretation Comments Segs (test code = Segs) 84.7 45.0-75.0 [facility] CenterAkzegcuCMGRWILDMT6633-23-99 13:28:00 Test Item Value Reference Range Interpretation Comments Lymphocytes (test code = Lymphocytes) 9.4 20.0-40.0 [facility] CenterMfcqhabRHJCPIAKZI7069-98-63 13:28:00 Test Item Value Reference Range Interpretation Comments Eosinophils # (test code 0.0 See_Comment [A utomated message] The = Eosinophils #) system [facility] generated this result tra nsmitted reference range : <=0.5. The reference r nilam was not used to int erpret this result as normal/abnormal . [facility] CenterAgakqnjMXPSEVQOYZ8233-31-16 13:28:00 Test Item Value Reference Range Interpretation Comments Lymphocytes # (test code = Lymphocytes 0.8 1.0-5.5 #) [facility] CenterRhgovwsYHHILRVBWK6238-12-09 13:28:00 Test Item Value Reference Range Interpretation Comments Monocytes # (test code 0.5 See_Comment [Aut omated message] The = Monocytes #) system which generated this result tra nsmitted reference range : <=0.8. The reference r nilam was not used to int erpret this result as normal/abnormal . [facility] CenterJsftaphXZNRNPLPTJ1664-86-97 13:28:00 Test Item Value Reference Range Interpretation Comments Segs-Bands # (test code = Segs-Bands #) 7.6 1.5-8.1 [facility] CenterSudvozoCGGHYSMHYZ6038-57-12 13:28:00 Test Item Value Reference Range Interpretation Comments Monocytes (test code = Monocytes) 5.4 2.0-12.0 [facility] CenterKbuswouEBKDVDHEES7090-86-44 13:28:00 Test Item Value Reference Range Interpretation Comments Eosinophils (test code = 0.3 See_Comment [A utomated message] The Eosinophils) system which ge nerated this result tra nsmitted reference range : <=4.0. The reference r nilam was not used to int erpret this result as normal/abnormal . [facility] CenterWhaejzwTGOOHSJLGZ2227-95-13 13:28:00 Test Item Value Reference Range Interpretation Comments Basophils (test code = 0.2 See_Comment [Aut omated message] The Basophils) system which ge nerated this result tra nsmitted reference range : <=1.0. The reference r nilam was not used to int erpret this result as normal/abnormal . [facility] CenterDugzcqsIWFKMVCNQL1526-40-10 13:28:00 Test Item Value Reference Range Interpretation Comments Basophils # (test code 0.0 See_Comment [Aut omated message] The = Basophils #) system which generated this result tra nsmitted reference range : <=0.2. The reference r nilam was not used to int erpret this result as normal/abnormal . [facility]PAKQYBL5578-33-08 13:28:00 Test Item Value Reference Range Interpretation Comments Troponin-I (test code no gt See_Comment [Auto mated message] The = Troponin-I) system which g enerated this result transmit kuldip reference range : <=0.40. The reference r nilam was not used to interpr et this result as abiodun l/abnormal. [facility]2016-01-13 13:28:00 Test Item Value Reference Range Interpretation Comments BNP (test code = BNP) 45 [facility]2016-01-13 13:28:00 Test Item Value Reference Range Interpretation Comments CK MB (test code = CK MB) 1.2 0.5-3.6 [facility]2016-01-13 13:28:00 Test Item Value Reference Range Interpretation Comments Total CK (test code = Total CK) 219 12-191 [facility]2016-01-13 13:28:00 Test Item Value Reference Range Interpretation Comments CK MB Index (test 0.5 See_Comment [Automate d message] The code = CK MB Index) system w [facility] generated this result transmit kuldip reference range : <=2.5. The reference range was not used to interpr et this result as abiodun l/abnormal. [employer]2016-01-13 13:28:00 Test Item Value Reference Range Interpretation Comments eGFR (test code = eGFR) 115 [facility] [address]2016-01-13 13:28:00 Test Item Value Reference Range Interpretation Comments AGAP (test code = AGAP) 15.0 10.0-20.0 [facility]2016-01-13 13:28:00 Test Item Value Reference Range Interpretation Comments Bili Total (test code = Bili Total) 0.2 0.2-1.3 [facility]2016-01-13 13:28:00 Test Item Value Reference Range Interpretation Comments A/G Ratio (test code = A/G Ratio) 0.6 0.7-1.6 [facility]2016-01-13 13:28:00 Test Item Value Reference Range Interpretation Comments Globulin (test code = Globulin) 5.4 2.0-4.0 [facility] [address]2016-01-13 13:28:00 Test Item Value Reference Range Interpretation Comments B/C Ratio (test code = B/C Ratio) 12 6-25 [facility]2016-01-13 13:28:00 Test Item Value Reference Range Interpretation Comments Alk Phos (test code = Alk Phos) 107 39-136 [facility]2016-01-13 13:28:00 Test Item Value Reference Range Interpretation Comments ALT (test code = ALT) 24 See_Comment [Auto mated message] The system which ge nerated this result transmit kuldip reference range : <=65. The reference range was not used to interpr et this result as abiodun l/abnormal. [facility]2016-01-13 13:28:00 Test Item Value Reference Range Interpretation Comments AST (test code = AST) 19 See_Comment [Auto mated message] The system which ge nerated this result transmit kuldip reference range : <=37. The reference range was not used to interpr et this result as abiodun l/abnormal. [facility]2016-01-13 13:28:00 Test Item Value Reference Range Interpretation Comments CO2 (test code = CO2) 24 24-32 [facility]2016-01-13 13:28:00 Test Item Value Reference Range Interpretation Comments Calcium Lvl (test code = Calcium Lvl) 9.5 8.5-10.5 [facility]2016-01-13 13:28:00 Test Item Value Reference Range Interpretation Comments Total Protein (test code = Total 8.4 6.4-8.4 Protein) [facility]2016-01-13 13:28:00 Test Item Value Reference Range Interpretation Comments BUN (test code = BUN) 9 7-22 [facility]2016-01-13 13:28:00 Test Item Value Reference Range Interpretation Comments Albumin Lvl (test code = Albumin Lvl) 3.0 3.5-5.0 [facility]2016-01-13 13:28:00 Test Item Value Reference Range Interpretation Comments Creatinine Lvl (test code = Creatinine 0.75 0.50-1.40 Lvl) [facility]2016-01-13 13:28:00 Test Item Value Reference Range Interpretation Comments Sodium Lvl (test code = Sodium Lvl) 139 135-145 [facility]2016-01-13 13:28:00 Test Item Value Reference Range Interpretation Comments Potassium Lvl (test code = Potassium 4.0 3.5-5.1 Lvl) [facility]2016-01-13 13:28:00 Test Item Value Reference Range Interpretation Comments Chloride Lvl (test code = Chloride Lvl) 104 95-109 [facility]2016-01-13 13:28:00 Test Item Value Reference Range Interpretation Comments Glucose Lvl (test code = Glucose Lvl) 118 70-99 [facility] CenterTtdbenjOEOLCAPYSR3736-06-84 13:28:00 Test Item Value Reference Range Interpretation Comments Hgb (test code = Hgb) 9.2 12.0-16.0 [facility] CenterEgdsexaUHMHXFTTMV3980-97-22 13:28:00 Test Item Value Reference Range Interpretation Comments MCV (test code = MCV) 71.0 80.0-98.0 [facility] CenterTiybgsuHUXIANXEJB9980-58-87 13:28:00 Test Item Value Reference Range Interpretation Comments MCH (test code = MCH) 21.4 pg 27.0-31.0 [facility] CenterWrkizsbAABYJANBUG8248-10-77 13:28:00 Test Item Value Reference Range Interpretation Comments Platelet (test code = Platelet) 280 133-450 [facility] CenterIwemvckZPRXGCKQLS8561-06-76 13:28:00 Test Item Value Reference Range Interpretation Comments MPV (test code = MPV) 8.0 7.4-10.4 [facility] CenterJejwjtyQOEVRNQRAB8631-76-70 13:28:00 Test Item Value Reference Range Interpretation Comments RDW (test code = RDW) 18.0 11.5-14.5 [facility] CenterTkrzsveYQCROXIDOV1731-18-69 13:28:00 Test Item Value Reference Range Interpretation Comments MCHC (test code = MCHC) 30.1 32.0-36.0 [facility] CenterChbuzyeERRPXVLOTO7399-54-41 13:28:00 Test Item Value Reference Range Interpretation Comments WBC (test code = WBC) 9.0 3.7-10.4 [facility] CenterVgxcgawSQDOZXTZKM0030-43-63 13:28:00 Test Item Value Reference Range Interpretation Comments RBC (test code = RBC) 4.30 4.20-5.40 [facility] CenterIctuifaLSJDLMJEYU5946-80-66 13:28:00 Test Item Value Reference Range Interpretation Comments Hct (test code = Hct) 30.5 36.0-48.0 [facility] CenterDyphqaxDKWGPGXTTU5443-62-38 13:28:00 Test Item Value Reference Range Interpretation Comments Segs (test code = Segs) 84.7 45.0-75.0 [facility] CenterOcvystkKQOZEYJHPH0863-79-03 13:28:00 Test Item Value Reference Range Interpretation Comments Lymphocytes (test code = Lymphocytes) 9.4 20.0-40.0 [facility] CenterLskhaanKOQBOOUILD7427-92-98 13:28:00 Test Item Value Reference Range Interpretation Comments Eosinophils # (test code 0.0 See_Comment [A utomated message] The = Eosinophils #) system whic h generated this result tra nsmitted reference range : <=0.5. The reference r nilam was not used to int erpret this result as normal/abnormal . [facility] CenterOqkcnkcENRFVDSPGE3633-44-67 13:28:00 Test Item Value Reference Range Interpretation Comments Lymphocytes # (test code = Lymphocytes 0.8 1.0-5.5 #) [facility] CenterHjygrhrEDXFBBGJRA7509-31-59 13:28:00 Test Item Value Reference Range Interpretation Comments Monocytes # (test code 0.5 See_Comment [Aut omated message] The = Monocytes #) system which generated this result tra nsmitted reference range : <=0.8. The reference r nilam was not used to int erpret this result as normal/abnormal . [facility] CenterEeatkkwGYZLMFKIVC2861-33-00 13:28:00 Test Item Value Reference Range Interpretation Comments Segs-Bands # (test code = Segs-Bands #) 7.6 1.5-8.1 [facility] CenterVlsbaqaGPDBWJLBID8824-82-96 13:28:00 Test Item Value Reference Range Interpretation Comments Monocytes (test code = Monocytes) 5.4 2.0-12.0 [facility] CenterZrfedgoENKPXPENQF8924-09-02 13:28:00 Test Item Value Reference Range Interpretation Comments Eosinophils (test code = 0.3 See_Comment [A utomated message] The Eosinophils) system which ge nerated this result tra nsmitted reference range : <=4.0. The reference r nilam was not used to int erpret this result as normal/abnormal . [facility] CenterJpqykqtFLUXOKDFML9240-44-29 13:28:00 Test Item Value Reference Range Interpretation Comments Basophils (test code = 0.2 See_Comment [Aut omated message] The Basophils) system which ge nerated this result tra nsmitted reference range : <=1.0. The reference r nilam was not used to int erpret this result as normal/abnormal . [facility]BwxzqntNJCBVFIXYS1193-43-31 13:28:00 Test Item Value Reference Range Interpretation Comments Basophils # (test code 0.0 See_Comment [Aut omated message] The = Basophils #) system which generated this result tra nsmitted reference range : <=0.2. The reference r nilam was not used to int erpret this result as normal/abnormal . [facility]2015-08-14 20:27:00 Test Item Value Reference Range Interpretation Comments CK MB Index (test 0.4 See_Comment [Automate d message] The code = CK MB Index) system [facility] generated this result transmit kuldip reference range : <=2.5. The reference range was not used to interpr et this result as abiodun l/abnormal. [facility]2015-08-14 20:27:00 Test Item Value Reference Range Interpretation Comments CK MB (test code = CK MB) 0.6 0.5-3.6 [facility]14 20:27:00 Test Item Value Reference Range Interpretation Comments Troponin-I (test code no gt See_Comment [Auto mated message] The = Troponin-I) system which g enerated this result transmit kuldip reference range : <=0.40. The reference r nilam was not used to interpr et this result as abiodun l/abnormal. [facility]2015-08-14 20:27:00 Test Item Value Reference Range Interpretation Comments Total CK (test code = Total CK) 136 12-191 [facility]2015-08-14 20:27:00 Test Item Value Reference Range Interpretation Comments CK MB Index (test 0.4 See_Comment [Automate d message] The code = CK MB Index) system [facility] generated this result transmit kuldip reference range : <=2.5. The reference range was not used to interpr et this result as abiodun l/abnormal. [employer]2015-08-14 20:27:00 Test Item Value Reference Range Interpretation Comments CK MB (test code = CK MB) 0.6 0.5-3.6 [facility]2015-08-14 20:27:00 Test Item Value Reference Range Interpretation Comments Troponin-I (test code no gt See_Comment [Auto mated message] The = Troponin-I) system which g enerated this result transmit kuldip reference range : <=0.40. The reference r nilam was not used to interpr et this result as abiodun l/abnormal. [facility] [employer] [id number] 20:27:00 Test Item Value Reference Range Interpretation Comments Total CK (test code = Total CK) 136 12-191 [facility]2015-08-14 20:27:00 Test Item Value Reference Range Interpretation Comments CK MB Index (test 0.4 See_Comment [Automate d message] The code = CK MB Index) system w [employer] generated this result transmit kuldip reference range : <=2.5. The reference range was not used to interpr et this result as abiodun l/abnormal. [facility]2015-08-14 20:27:00 Test Item Value Reference Range Interpretation Comments CK MB (test code = CK MB) 0.6 0.5-3.6 [facility]2015-08-14 20:27:00 Test Item Value Reference Range Interpretation Comments Troponin-I (test code no gt See_Comment [Auto mated message] The = Troponin-I) system which g enerated this result transmit kuldip reference range : <=0.40. The reference r nilam was not used to interpr et this result as abiodun l/abnormal. [facility]2015-08-14 20:27:00 Test Item Value Reference Range Interpretation Comments Total CK (test code = Total CK) 136 12-191 [facility]2015-08-14 20:27:00 Test Item Value Reference Range Interpretation Comments CK MB Index (test 0.4 See_Comment [Automate d message] The code = CK MB Index) system w [employer] generated this result transmit kuldip reference range : <=2.5. The reference range was not used to interpr et this result as abiodun l/abnormal. [employer] GTSGVHQ5577-47-07 20:27:00 Test Item Value Reference Range Interpretation Comments CK MB (test code = CK MB) 0.6 0.5-3.6 [facility] [employer] QFWCVUM8838-60-10 20:27:00 Test Item Value Reference Range Interpretation Comments Troponin-I (test code no gt See_Comment [Auto mated message] The = Troponin-I) system which g enerated this result transmit kuldip reference range : <=0.40. The reference r nilam was not used to interpr et this result as abiodun l/abnormal. [facility] [employer] [id number] 20:27:00 Test Item Value Reference Range Interpretation Comments Total CK (test code = Total CK) 136 12-191 [facility] [id number] 20:27:00 Test Item Value Reference Range Interpretation Comments CK MB Index (test 0.4 See_Comment [Automate d message] The code = CK MB Index) system w [facility] generated this result transmit kuldip reference range : <=2.5. The reference range was not used to interpr et this result as abiodun l/abnormal. [facility] [employer] [id number] 20:27:00 Test Item Value Reference Range Interpretation Comments CK MB (test code = CK MB) 0.6 0.5-3.6 [facility] INPYWOV2619-35-07 20:27:00 Test Item Value Reference Range Interpretation Comments Troponin-I (test code no gt See_Comment [Auto mated message] The = Troponin-I) system which g enerated this result transmit kuldip reference range : <=0.40. The reference r nilam was not used to interpr et this result as abiodun l/abnormal. [facility] [employer] [id number] 20:27:00 Test Item Value Reference Range Interpretation Comments Total CK (test code = Total CK) 136 12-191 [facility] GyyqwoiRWDCLABRJXCU1189-22-24 09:19:00 Test Item Value Reference Range Interpretation Comments Potassium Lvl (test code = Potassium 4.4 3.5-5.1 Lvl) [facility] HospitalRasvwxcEMCKNZXQSANA7712-21-85 09:19:00 Test Item Value Reference Range Interpretation Comments Sodium Lvl (test code = Sodium Lvl) 139 135-145 [facility] PmdtsjhWNWEZTWDTBHM7045-69-40 09:19:00 Test Item Value Reference Range Interpretation Comments Chloride Lvl (test code = Chloride Lvl) 107 95-109 [facility]PxmdtnjBMHZNWYUHWWM7607-37-36 09:19:00 Test Item Value Reference Range Interpretation Comments eGFR (test code = eGFR) 107 [facility] HospitalFqwzhuuILEBRNACCZAH9081-85-75 09:19:00 Test Item Value Reference Range Interpretation Comments CO2 (test code = CO2) 20 24-32 [facility] HospitalYlerqvsUZLEZGKOXVCR2920-15-19 09:19:00 Test Item Value Reference Range Interpretation Comments Calcium Lvl (test code = Calcium Lvl) 9.5 8.5-10.5 [facility] HospitalNgtdouvFLQRHKJAQKTJ0343-94-72 09:19:00 Test Item Value Reference Range Interpretation Comments Total Protein (test code = Total 7.7 6.4-8.4 Protein) [facility] HospitalFfkwduuEMMGQOZXVOKU6103-68-92 09:19:00 Test Item Value Reference Range Interpretation Comments Albumin Lvl (test code = Albumin Lvl) 2.9 3.5-5.0 [facility] HospitalHnucbgsUYCMVEDVUFEA7448-42-41 09:19:00 Test Item Value Reference Range Interpretation Comments ALT (test code = ALT) 21 See_Comment [Auto mated message] The system which ge nerated this result transmit kuldip reference range : <=65. The reference range was not used to interpr et this result as abiodun l/abnormal. [facility] HospitalJexzxljBZKOUJXRLIPF2483-99-13 09:19:00 Test Item Value Reference Range Interpretation Comments AST (test code = AST) 27 See_Comment [Auto mated message] The system which ge nerated this result transmit kuldip reference range : <=37. The reference range was not used to interpr et this result as abiodun l/abnormal. [facility] HospitalAvbtzjfKYCQGVLTCRWZ8689-78-47 09:19:00 Test Item Value Reference Range Interpretation Comments Alk Phos (test code = Alk Phos) 81 39-136 [facility] HospitalGoeclhcGXHUVVUTCFKC6743-76-82 09:19:00 Test Item Value Reference Range Interpretation Comments Bili Total (test code = Bili Total) 0.4 0.2-1.3 [facility] HospitalIepllauPVCBVABZTUQK5486-37-07 09:19:00 Test Item Value Reference Range Interpretation Comments Creatinine Lvl (test code = Creatinine 0.8 0.5-1.4 Lvl) [facility] HospitalFywdsknBPGJWLZVQNJZ7375-22-05 09:19:00 Test Item Value Reference Range Interpretation Comments Glucose Lvl (test code = Glucose Lvl) 88 70-99 [facility] HospitalVmwecoxWQVDEPIFYOQB6691-15-46 09:19:00 Test Item Value Reference Range Interpretation Comments BUN (test code = BUN) 7 7-22 [facility] HospitalFymuntyPZBINSFXWINR8226-38-50 09:19:00 Test Item Value Reference Range Interpretation Comments AGAP (test code = AGAP) 16.4 10.0-20.0 [facility] HospitalAjwdmwuILMLMSAWRQPL4438-79-06 09:19:00 Test Item Value Reference Range Interpretation Comments B/C Ratio (test code = B/C Ratio) 9 6-25 [facility] HospitalEwubvvpFDGWXQLOIZDH7516-02-26 09:19:00 Test Item Value Reference Range Interpretation Comments Globulin (test code = Globulin) 4.8 2.0-4.0 [facility] HospitalEttsjpoDKMJKEOTQIUS4319-64-33 09:19:00 Test Item Value Reference Range Interpretation Comments A/G Ratio (test code = A/G Ratio) 0.6 0.7-1.6 [facility] CenterMilphmiZDWIVQMIKN6711-94-26 09:19:00 Test Item Value Reference Range Interpretation Comments Segs (test code = Segs) 54.4 45.0-75.0 [facility] CenterLxbgcaiSIDXVPZEWL0526-51-30 09:19:00 Test Item Value Reference Range Interpretation Comments Lymphocytes (test code = Lymphocytes) 31.6 20.0-40.0 [facility] CenterSpufckzLMKEINCGCR7550-79-84 09:19:00 Test Item Value Reference Range Interpretation Comments Basophils (test code = 0.9 See_Comment [Aut omated message] The Basophils) system which ge nerated this result tra nsmitted reference range : <=1.0. The reference r nilam was not used to int erpret this result as normal/abnormal . [facility] CenterGoxuguiHUGMWXBDXB1468-86-87 09:19:00 Test Item Value Reference Range Interpretation Comments Segs-Bands # (test code = Segs-Bands #) 2.8 1.5-8.1 [facility] CenterLkcjynzMCNRARQHJG4940-97-37 09:19:00 Test Item Value Reference Range Interpretation Comments Monocytes (test code = Monocytes) 10.8 2.0-12.0 [facility] CenterNfgehirKARGLVBXUE6932-09-24 09:19:00 Test Item Value Reference Range Interpretation Comments Eosinophils # (test code 0.1 See_Comment [A utomated message] The = Eosinophils #) system whic h generated this result tra nsmitted reference range : <=0.5. The reference r nilam was not used to int erpret this result as normal/abnormal . [facility] CenterEjuxtvhTWKZAXPMMR4939-24-40 09:19:00 Test Item Value Reference Range Interpretation Comments Eosinophils (test code = 2.3 See_Comment [A utomated message] The Eosinophils) system which ge nerated this result tra nsmitted reference range : <=4.0. The reference r nilam was not used to int erpret this result as normal/abnormal . [facility] CenterIwzvdagLWOUQLGZKA7188-44-93 09:19:00 Test Item Value Reference Range Interpretation Comments Microcyte (test code = 3+ *NA*(11/06/14 4:19 Microcyte) AM) [facility] CenterWlubnbqYBDLBSMCVW3547-23-13 09:19:00 Test Item Value Reference Range Interpretation Comments Lymphocytes # (test code = Lymphocytes 1.6 1.0-5.5 #) [facility] CenterDougvfdXQHIEFJFXY5442-50-39 09:19:00 Test Item Value Reference Range Interpretation Comments Monocytes # (test code 0.6 See_Comment [Aut omated message] The = Monocytes #) system which generated this result tra nsmitted reference range : <=0.8. The reference r nilam was not used to int erpret this result as normal/abnormal . [facility] CenterKcuibatJDPUNWDINH4593-85-15 09:19:00 Test Item Value Reference Range Interpretation Comments MCHC (test code = MCHC) 30.6 32.0-36.0 [facility] CenterPsynubwPVBYBIBCDT3621-05-57 09:19:00 Test Item Value Reference Range Interpretation Comments MPV (test code = MPV) 8.2 7.4-10.4 [facility] CenterCvabgcmHEEEYOWNBG4423-78-22 09:19:00 Test Item Value Reference Range Interpretation Comments RDW (test code = RDW) 17.5 11.5-14.5 [facility] CenterHdumgytEHZAWHWYPH4709-68-49 09:19:00 Test Item Value Reference Range Interpretation Comments Platelet (test code = Platelet) 257 133-450 [facility] CenterFmkjxhkXGMFAXCHOX5056-79-59 09:19:00 Test Item Value Reference Range Interpretation Comments RBC (test code = RBC) 4.00 4.20-5.40 [facility] CenterYvfnfzyDPLPDQNQCI0116-67-62 09:19:00 Test Item Value Reference Range Interpretation Comments Hgb (test code = Hgb) 8.4 12.0-16.0 [facility] CenterPggpuqzNUDQRUITOF9074-46-39 09:19:00 Test Item Value Reference Range Interpretation Comments MCH (test code = MCH) 21.1 pg 27.0-31.0 [facility] CenterNonfnnuTVNHZDQTFF2221-99-80 09:19:00 Test Item Value Reference Range Interpretation Comments Hct (test code = Hct) 27.6 36.0-48.0 [facility] CenterZbxxczaEWBNGJBZEV0549-84-94 09:19:00 Test Item Value Reference Range Interpretation Comments MCV (test code = MCV) 68.8 80.0-98.0 [facility] CenterBewascxFUGXLBDRFG6990-85-90 09:19:00 Test Item Value Reference Range Interpretation Comments WBC (test code = WBC) 5.1 3.7-10.4 [facility] HospitalYjkqhpqTVDAUWKMOUTQ5346-86-80 09:19:00 Test Item Value Reference Range Interpretation Comments Potassium Lvl (test code = Potassium 4.4 3.5-5.1 Lvl) [facility] HospitalBscwmjyGEXETLGXORQU4015-73-56 09:19:00 Test Item Value Reference Range Interpretation Comments Sodium Lvl (test code = Sodium Lvl) 139 135-145 [facility] HospitalZugjdsyBSYCMZEWHXEN1767-69-92 09:19:00 Test Item Value Reference Range Interpretation Comments Chloride Lvl (test code = Chloride Lvl) 107 95-109 [facility] HospitalUblikonNAEOKTSUUECG5772-41-35 09:19:00 Test Item Value Reference Range Interpretation Comments eGFR (test code = eGFR) 107 [facility] HospitalCdqknbjLNTJYPOFKSHG5361-10-06 09:19:00 Test Item Value Reference Range Interpretation Comments CO2 (test code = CO2) 20 24-32 [facility] HospitalNufttmfFRWANGQJMNGV7047-82-56 09:19:00 Test Item Value Reference Range Interpretation Comments Calcium Lvl (test code = Calcium Lvl) 9.5 8.5-10.5 [facility] HospitalOhqrlkaZGYXMCWXKRAZ9468-34-01 09:19:00 Test Item Value Reference Range Interpretation Comments Total Protein (test code = Total 7.7 6.4-8.4 Protein) [facility] HospitalPphtiuxTUXCETLMYSIU6175-52-77 09:19:00 Test Item Value Reference Range Interpretation Comments Albumin Lvl (test code = Albumin Lvl) 2.9 3.5-5.0 [facility] HospitalHazvqfrVFNHQVIVTWEY7347-53-69 09:19:00 Test Item Value Reference Range Interpretation Comments ALT (test code = ALT) 21 See_Comment [Auto mated message] The system which ge nerated this result transmit kuldip reference range : <=65. The reference range was not used to interpr et this result as abiodun l/abnormal. [facility] HospitalXpsnaeyLPQARYGFZBWN9578-89-52 09:19:00 Test Item Value Reference Range Interpretation Comments AST (test code = AST) 27 See_Comment [Auto mated message] The system which ge nerated this result transmit kuldip reference range : <=37. The reference range was not used to interpr et this result as abiodun l/abnormal. [facility] HospitalYxtynrvTTPTOCQVZTJE0584-04-82 09:19:00 Test Item Value Reference Range Interpretation Comments Alk Phos (test code = Alk Phos) 81 39-136 [facility] HospitalSpktzuiTGTPFICAGNUW4436-04-94 09:19:00 Test Item Value Reference Range Interpretation Comments Bili Total (test code = Bili Total) 0.4 0.2-1.3 [facility] HospitalRcyvajsJZWHRUNAALCF9239-73-60 09:19:00 Test Item Value Reference Range Interpretation Comments Creatinine Lvl (test code = Creatinine 0.8 0.5-1.4 Lvl) [facility] HospitalVijcuqdODLJPVHRCRUH4518-55-06 09:19:00 Test Item Value Reference Range Interpretation Comments Glucose Lvl (test code = Glucose Lvl) 88 70-99 [facility] HospitalPzpeoodHFIUFRWOXXHT6073-54-56 09:19:00 Test Item Value Reference Range Interpretation Comments BUN (test code = BUN) 7 7-22 [facility] HospitalMsqpeqfUVATMBSNNUKY9966-56-29 09:19:00 Test Item Value Reference Range Interpretation Comments AGAP (test code = AGAP) 16.4 10.0-20.0 [facility] HospitalVsyneshMPKUIEVRTTHS0589-01-07 09:19:00 Test Item Value Reference Range Interpretation Comments B/C Ratio (test code = B/C Ratio) 9 6-25 [facility] HospitalFdwkxawVXSRDUNAJTPQ4201-39-55 09:19:00 Test Item Value Reference Range Interpretation Comments Globulin (test code = Globulin) 4.8 2.0-4.0 [facility] EhzjdxnSLKVAXMDJHDH4866-49-20 09:19:00 Test Item Value Reference Range Interpretation Comments A/G Ratio (test code = A/G Ratio) 0.6 0.7-1.6 [facility] HospitalPsyewjtPAJMACVCDC1488-55-19 09:19:00 Test Item Value Reference Range Interpretation Comments Segs (test code = Segs) 54.4 45.0-75.0 [facility] CenterYefarxqLZFSQXKOXC0104-76-22 09:19:00 Test Item Value Reference Range Interpretation Comments Lymphocytes (test code = Lymphocytes) 31.6 20.0-40.0 [facility] CenterPeiqtnmUXVFWFXDSH0085-80-94 09:19:00 Test Item Value Reference Range Interpretation Comments Basophils (test code = 0.9 See_Comment [Aut omated message] The Basophils) system which ge nerated this result tra nsmitted reference range : <=1.0. The reference r nilam was not used to int erpret this result as normal/abnormal . [facility] CenterMbraeshVNMKBTDFBL1132-14-17 09:19:00 Test Item Value Reference Range Interpretation Comments Segs-Bands # (test code = Segs-Bands #) 2.8 1.5-8.1 [facility] CenterKxyxmznPUTNVCCYHO6807-50-98 09:19:00 Test Item Value Reference Range Interpretation Comments Monocytes (test code = Monocytes) 10.8 2.0-12.0 [facility] CenterHkgaauhAPOMXGGIDK9041-56-03 09:19:00 Test Item Value Reference Range Interpretation Comments Eosinophils # (test code 0.1 See_Comment [A utomated message] The = Eosinophils #) system whic h generated this result tra nsmitted reference range : <=0.5. The reference r nilam was not used to int erpret this result as normal/abnormal . [facility] CenterOlhsbokSYRUNIRFSH4085-39-86 09:19:00 Test Item Value Reference Range Interpretation Comments Eosinophils (test code = 2.3 See_Comment [A utomated message] The Eosinophils) system which ge nerated this result tra nsmitted reference range : <=4.0. The reference r nilam was not used to int erpret this result as normal/abnormal . [facility] CenterDwuvxmnKZDQTUCDWR2514-60-17 09:19:00 Test Item Value Reference Range Interpretation Comments Microcyte (test code = 3+ *NA*(11/06/14 4:19 Microcyte) AM) [facility] CenterSsgosvsPMCETLHBER7788-67-65 09:19:00 Test Item Value Reference Range Interpretation Comments Lymphocytes # (test code = Lymphocytes 1.6 1.0-5.5 #) [facility] CenterJnfcqpvXSIAUVMSVE5194-57-01 09:19:00 Test Item Value Reference Range Interpretation Comments Monocytes # (test code 0.6 See_Comment [Aut omated message] The = Monocytes #) system which generated this result tra nsmitted reference range : <=0.8. The reference r nilam was not used to int erpret this result as normal/abnormal . [facility] CenterFjamfvhIWYWARWYOM2243-22-37 09:19:00 Test Item Value Reference Range Interpretation Comments MCHC (test code = MCHC) 30.6 32.0-36.0 [facility] CenterRgbsgbvXSARUYWQHF7986-77-99 09:19:00 Test Item Value Reference Range Interpretation Comments MPV (test code = MPV) 8.2 7.4-10.4 [facility] CenterResxsfzRGCVBWJTRY3856-19-36 09:19:00 Test Item Value Reference Range Interpretation Comments RDW (test code = RDW) 17.5 11.5-14.5 [facility] CenterWygnlonBFWHPNBNNR3692-14-14 09:19:00 Test Item Value Reference Range Interpretation Comments Platelet (test code = Platelet) 257 133-450 [facility] CenterOsyzrjoTGMYALKLPM0180-55-71 09:19:00 Test Item Value Reference Range Interpretation Comments RBC (test code = RBC) 4.00 4.20-5.40 [facility] CenterErvdwyoWVGDDPYVFI0661-67-50 09:19:00 Test Item Value Reference Range Interpretation Comments Hgb (test code = Hgb) 8.4 12.0-16.0 [facility] CenterIfpkcjqKWIXOJNGPV3909-67-74 09:19:00 Test Item Value Reference Range Interpretation Comments MCH (test code = MCH) 21.1 pg 27.0-31.0 [facility] CenterWukyrtoNVMJBSUJCZ4644-18-72 09:19:00 Test Item Value Reference Range Interpretation Comments Hct (test code = Hct) 27.6 36.0-48.0 [facility] CenterMxdqyvkXYZQFXJORQ7990-88-43 09:19:00 Test Item Value Reference Range Interpretation Comments MCV (test code = MCV) 68.8 80.0-98.0 [facility]CglqedpRDKPTNAPQQ3159-34-01 09:19:00 Test Item Value Reference Range Interpretation Comments WBC (test code = WBC) 5.1 3.7-10.4 [facility] HospitalJamtbaxAVSMSQVUTHJX6836-52-16 09:19:00 Test Item Value Reference Range Interpretation Comments Potassium Lvl (test code = Potassium 4.4 3.5-5.1 Lvl) [facility] HospitalTmxuxzpOJFWVIGOFTMF8179-60-66 09:19:00 Test Item Value Reference Range Interpretation Comments Sodium Lvl (test code = Sodium Lvl) 139 135-145 [facility] HospitalAapyvdtSBKUEPWHDXNZ4372-24-39 09:19:00 Test Item Value Reference Range Interpretation Comments Chloride Lvl (test code = Chloride Lvl) 107 95-109 [facility] HospitalPwytzdtDJXENTEWIGPL3675-21-50 09:19:00 Test Item Value Reference Range Interpretation Comments eGFR (test code = eGFR) 107 [facility] HospitalRyivngiMDZOTHJVVPJW2824-93-13 09:19:00 Test Item Value Reference Range Interpretation Comments CO2 (test code = CO2) 20 24-32 [facility] HospitalIxmuntxLTTGWVHOUHIF8008-68-36 09:19:00 Test Item Value Reference Range Interpretation Comments Calcium Lvl (test code = Calcium Lvl) 9.5 8.5-10.5 [facility] HospitalHmryjgnQXZNGJFHHVEI6793-96-44 09:19:00 Test Item Value Reference Range Interpretation Comments Total Protein (test code = Total 7.7 6.4-8.4 Protein) [facility] HospitalKrmhlohPLCNBBKVCDMN2056-78-98 09:19:00 Test Item Value Reference Range Interpretation Comments Albumin Lvl (test code = Albumin Lvl) 2.9 3.5-5.0 [facility] HospitalWgradnvHSFPTECLNTOT9137-45-78 09:19:00 Test Item Value Reference Range Interpretation Comments ALT (test code = ALT) 21 See_Comment [Auto mated message] The system which ge nerated this result transmit kuldip reference range : <=65. The reference range was not used to interpr et this result as abiodun l/abnormal. [facility] HospitalHworkddSKCCZIMPFBEZ0232-79-45 09:19:00 Test Item Value Reference Range Interpretation Comments AST (test code = AST) 27 See_Comment [Auto mated message] The system which ge nerated this result transmit kuldip reference range : <=37. The reference range was not used to interpr et this result as abiodun l/abnormal. [facility] HospitalHyhtnwfNRLDKEITQCZV4537-44-74 09:19:00 Test Item Value Reference Range Interpretation Comments Alk Phos (test code = Alk Phos) 81 39-136 [facility] HospitalQvjpxicPQOCLOSCZIHO6625-31-86 09:19:00 Test Item Value Reference Range Interpretation Comments Bili Total (test code = Bili Total) 0.4 0.2-1.3 [facility] HospitalMkyoomhPDFAUACZPIXA5395-04-50 09:19:00 Test Item Value Reference Range Interpretation Comments Creatinine Lvl (test code = Creatinine 0.8 0.5-1.4 Lvl) [facility] HospitalEhdkokhYPGLNXKNKCXE9068-10-68 09:19:00 Test Item Value Reference Range Interpretation Comments Glucose Lvl (test code = Glucose Lvl) 88 70-99 [facility] HospitalPkaybxiALTXAOKTHKAD7548-75-70 09:19:00 Test Item Value Reference Range Interpretation Comments BUN (test code = BUN) 7 7-22 [facility] HospitalJhqtbomUUMBPLVPFPJW1900-67-67 09:19:00 Test Item Value Reference Range Interpretation Comments AGAP (test code = AGAP) 16.4 10.0-20.0 [facility] HospitalJybdngtYUWLBQJHWJTW3158-95-38 09:19:00 Test Item Value Reference Range Interpretation Comments B/C Ratio (test code = B/C Ratio) 9 6-25 [facility] HospitalHkfnodxYDTFOCMEEEUP0848-10-99 09:19:00 Test Item Value Reference Range Interpretation Comments Globulin (test code = Globulin) 4.8 2.0-4.0 [facility] HospitalQbeyzokOLNUOZLDKJFE7046-60-85 09:19:00 Test Item Value Reference Range Interpretation Comments A/G Ratio (test code = A/G Ratio) 0.6 0.7-1.6 [facility] CenterUwixvmuACSADHHJNT5965-52-73 09:19:00 Test Item Value Reference Range Interpretation Comments Segs (test code = Segs) 54.4 45.0-75.0 [facility] CenterRugtywfQRBQZPGRTU7940-92-24 09:19:00 Test Item Value Reference Range Interpretation Comments Lymphocytes (test code = Lymphocytes) 31.6 20.0-40.0 [facility] CenterFqutjsoCESFTUZCAS9540-86-99 09:19:00 Test Item Value Reference Range Interpretation Comments Basophils (test code = 0.9 See_Comment [Aut omated message] The Basophils) system which ge nerated this result tra nsmitted reference range : <=1.0. The reference r nilam was not used to int erpret this result as normal/abnormal . [facility] CenterUigyqfbBVWSWODBXL7613-52-02 09:19:00 Test Item Value Reference Range Interpretation Comments Segs-Bands # (test code = Segs-Bands #) 2.8 1.5-8.1 [facility] CenterRkhrblmSYWJTTQIYF9365-25-95 09:19:00 Test Item Value Reference Range Interpretation Comments Monocytes (test code = Monocytes) 10.8 2.0-12.0 [facility] CenterGwqtuyaQKTZRBIOUH6488-76-86 09:19:00 Test Item Value Reference Range Interpretation Comments Eosinophils # (test code 0.1 See_Comment [A utomated message] The = Eosinophils #) system wh h generated this result tra nsmitted reference range : <=0.5. The reference r nilma was not used to int erpret this result as normal/abnormal . [facility] CenterLxyfldyWKFPUKDYWK7942-46-54 09:19:00 Test Item Value Reference Range Interpretation Comments Eosinophils (test code = 2.3 See_Comment [A utomated message] The Eosinophils) system which ge nerated this result tra nsmitted reference range : <=4.0. The reference r nilam was not used to int erpret this result as normal/abnormal . [facility] CenterBkhshbwCVPNBWXUFX8455-89-65 09:19:00 Test Item Value Reference Range Interpretation Comments Microcyte (test code = 3+ *NA*(11/06/14 4:19 Microcyte) AM) [facility] CenterEupoaedWRHYFTHZMM5577-38-44 09:19:00 Test Item Value Reference Range Interpretation Comments Lymphocytes # (test code = Lymphocytes 1.6 1.0-5.5 #) [facility] CenterKaxaxurAXTBDDTUMI1264-92-99 09:19:00 Test Item Value Reference Range Interpretation Comments Monocytes # (test code 0.6 See_Comment [Aut omated message] The = Monocytes #) system which generated this result tra nsmitted reference range : <=0.8. The reference r nilam was not used to int erpret this result as normal/abnormal . [facility] CenterIecanerOOYSQKEFUH7135-54-17 09:19:00 Test Item Value Reference Range Interpretation Comments MCHC (test code = MCHC) 30.6 32.0-36.0 [facility] CenterVwteywxWJUUBMKJFO9395-16-67 09:19:00 Test Item Value Reference Range Interpretation Comments MPV (test code = MPV) 8.2 7.4-10.4 [facility] CenterEurcijgYUNQRVWGLG2470-40-83 09:19:00 Test Item Value Reference Range Interpretation Comments RDW (test code = RDW) 17.5 11.5-14.5 [facility] CenterBsahjotLTWSSEEIEN8627-96-10 09:19:00 Test Item Value Reference Range Interpretation Comments Platelet (test code = Platelet) 257 133-450 [facility] CenterFfpkqbfCKLXIGQOIS9831-63-12 09:19:00 Test Item Value Reference Range Interpretation Comments RBC (test code = RBC) 4.00 4.20-5.40 [facility] CenterSjfwmeePHLAYJSJZV0371-58-50 09:19:00 Test Item Value Reference Range Interpretation Comments Hgb (test code = Hgb) 8.4 12.0-16.0 [facility] CenterViejtyoGJGDTULQMH6592-22-12 09:19:00 Test Item Value Reference Range Interpretation Comments MCH (test code = MCH) 21.1 pg 27.0-31.0 [facility] CenterXltkvljXXICDYVJDU8614-46-66 09:19:00 Test Item Value Reference Range Interpretation Comments Hct (test code = Hct) 27.6 36.0-48.0 [facility] CenterOdshhxkHCODHWZUEH6854-64-72 09:19:00 Test Item Value Reference Range Interpretation Comments MCV (test code = MCV) 68.8 80.0-98.0 [facility] CenterHvioqdnAKHXSPCZPO7695-17-87 09:19:00 Test Item Value Reference Range Interpretation Comments WBC (test code = WBC) 5.1 3.7-10.4 [facility] HospitalSlvceteCPBSUQLNRGSF8121-82-71 09:19:00 Test Item Value Reference Range Interpretation Comments Potassium Lvl (test code = Potassium 4.4 3.5-5.1 Lvl) [facility] HospitalTkeduzcHPBYWFTUDURZ5204-88-50 09:19:00 Test Item Value Reference Range Interpretation Comments Sodium Lvl (test code = Sodium Lvl) 139 135-145 [facility] HospitalRlpbegmNEZGBYQWHNRA2294-17-75 09:19:00 Test Item Value Reference Range Interpretation Comments Chloride Lvl (test code = Chloride Lvl) 107 95-109 [facility] HospitalUvzcgabCVPHOJGUKFWJ9386-25-61 09:19:00 Test Item Value Reference Range Interpretation Comments eGFR (test code = eGFR) 107 [facility] HospitalThdqpbeDOBEACNZMXQA1948-49-00 09:19:00 Test Item Value Reference Range Interpretation Comments CO2 (test code = CO2) 20 24-32 [facility] HospitalMrcxfjcOQZZVYVNCERU0764-12-61 09:19:00 Test Item Value Reference Range Interpretation Comments Calcium Lvl (test code = Calcium Lvl) 9.5 8.5-10.5 [facility] HospitalVjihbqeQBQMSVRSIIEG4921-36-00 09:19:00 Test Item Value Reference Range Interpretation Comments Total Protein (test code = Total 7.7 6.4-8.4 Protein) [facility] HospitalJotqqahRRLUHBEQMIQS0054-79-80 09:19:00 Test Item Value Reference Range Interpretation Comments Albumin Lvl (test code = Albumin Lvl) 2.9 3.5-5.0 [facility] HospitalZgvboyzTRGEAFBTDBQM4051-81-38 09:19:00 Test Item Value Reference Range Interpretation Comments ALT (test code = ALT) 21 See_Comment [Auto mated message] The system which ge nerated this result transmit kuldip reference range : <=65. The reference range was not used to interpr et this result as abiodun l/abnormal. [facility] HospitalBqvbhuyYMMHTZLLBBDO4407-11-31 09:19:00 Test Item Value Reference Range Interpretation Comments AST (test code = AST) 27 See_Comment [Auto mated message] The system which ge nerated this result transmit kuldip reference range : <=37. The reference range was not used to interpr et this result as abiodun l/abnormal. [facility] HospitalSgivvknUMNCOOWGTOZL2097-45-32 09:19:00 Test Item Value Reference Range Interpretation Comments Alk Phos (test code = Alk Phos) 81 39-136 [facility] HospitalVfhkqfoAIILWWVTIQGI5763-47-27 09:19:00 Test Item Value Reference Range Interpretation Comments Bili Total (test code = Bili Total) 0.4 0.2-1.3 [facility] HospitalPyhnmfeIIGXIWVXNYGL7799-27-55 09:19:00 Test Item Value Reference Range Interpretation Comments Creatinine Lvl (test code = Creatinine 0.8 0.5-1.4 Lvl) [facility] HospitalQfpqrysKUXTSZGXMAAW3817-98-56 09:19:00 Test Item Value Reference Range Interpretation Comments Glucose Lvl (test code = Glucose Lvl) 88 70-99 [facility] HospitalDszjhaoUFQDKVTSXHOL9078-31-59 09:19:00 Test Item Value Reference Range Interpretation Comments BUN (test code = BUN) 7 7-22 [facility] HospitalAhxuovxAWJGFGGZDKKI1200-56-33 09:19:00 Test Item Value Reference Range Interpretation Comments AGAP (test code = AGAP) 16.4 10.0-20.0 [facility] HospitalOxtvvuePTBBQAAQFECC0420-44-13 09:19:00 Test Item Value Reference Range Interpretation Comments B/C Ratio (test code = B/C Ratio) 9 6-25 [facility] HospitalMuvtvsiNLLMOPGPPPRN2174-78-85 09:19:00 Test Item Value Reference Range Interpretation Comments Globulin (test code = Globulin) 4.8 2.0-4.0 [facility] HospitalSxoblxuAJSZBQXQKERR6156-16-65 09:19:00 Test Item Value Reference Range Interpretation Comments A/G Ratio (test code = A/G Ratio) 0.6 0.7-1.6 [facility] CenterIxyzxnpBODYPLARKY3712-37-21 09:19:00 Test Item Value Reference Range Interpretation Comments Segs (test code = Segs) 54.4 45.0-75.0 [facility] CenterMpnszkcDVRXPXTGOS0136-46-08 09:19:00 Test Item Value Reference Range Interpretation Comments Lymphocytes (test code = Lymphocytes) 31.6 20.0-40.0 [facility] CenterOgccrbuWOALPXSVVS2343-68-17 09:19:00 Test Item Value Reference Range Interpretation Comments Basophils (test code = 0.9 See_Comment [Aut omated message] The Basophils) system which ge nerated this result tra nsmitted reference range : <=1.0. The reference r nilam was not used to int erpret this result as normal/abnormal . [facility] CenterYcwgtdwSIVKLGAQXQ8713-32-27 09:19:00 Test Item Value Reference Range Interpretation Comments Segs-Bands # (test code = Segs-Bands #) 2.8 1.5-8.1 [facility] CenterBqwtoptYNHBFHPXHU2707-10-39 09:19:00 Test Item Value Reference Range Interpretation Comments Monocytes (test code = Monocytes) 10.8 2.0-12.0 [facility] CenterRofclewJUKNACOQVU6987-99-15 09:19:00 Test Item Value Reference Range Interpretation Comments Eosinophils # (test code 0.1 See_Comment [A utomated message] The = Eosinophils #) system whic h generated this result tra nsmitted reference range : <=0.5. The reference r nilam was not used to int erpret this result as normal/abnormal . [facility] CenterXvcphnfXSYBUJJNLZ6750-70-36 09:19:00 Test Item Value Reference Range Interpretation Comments Eosinophils (test code = 2.3 See_Comment [A utomated message] The Eosinophils) system which ge nerated this result tra nsmitted reference range : <=4.0. The reference r nilam was not used to int erpret this result as normal/abnormal . [facility] CenterActqyhfUNIKZJQMKK4005-53-44 09:19:00 Test Item Value Reference Range Interpretation Comments Microcyte (test code = 3+ *NA*(11/06/14 4:19 Microcyte) AM) [facility] CenterWaxuntaYJROKJIRVD4216-00-09 09:19:00 Test Item Value Reference Range Interpretation Comments Lymphocytes # (test code = Lymphocytes 1.6 1.0-5.5 #) [facility] CenterZdqfxncQSIJVOEIFO7520-57-01 09:19:00 Test Item Value Reference Range Interpretation Comments Monocytes # (test code 0.6 See_Comment [Aut omated message] The = Monocytes #) system which generated this result tra nsmitted reference range : <=0.8. The reference r nilam was not used to int erpret this result as normal/abnormal . [facility] CenterSdkhfgkXZRYIQRNBX8977-31-47 09:19:00 Test Item Value Reference Range Interpretation Comments MCHC (test code = MCHC) 30.6 32.0-36.0 [facility] CenterSqsikdfHDOCNUQEHL1776-39-65 09:19:00 Test Item Value Reference Range Interpretation Comments MPV (test code = MPV) 8.2 7.4-10.4 [facility] CenterSzflwulZDUSRLOWXU4923-80-13 09:19:00 Test Item Value Reference Range Interpretation Comments RDW (test code = RDW) 17.5 11.5-14.5 [facility] CenterKtqjtudODQKCHHPIH3746-40-83 09:19:00 Test Item Value Reference Range Interpretation Comments Platelet (test code = Platelet) 257 133-450 [facility] CenterXuescjnJEMAZILHIZ6650-28-30 09:19:00 Test Item Value Reference Range Interpretation Comments RBC (test code = RBC) 4.00 4.20-5.40 [facility] CenterHbcahzsYAZQTQQDGS5106-60-51 09:19:00 Test Item Value Reference Range Interpretation Comments Hgb (test code = Hgb) 8.4 12.0-16.0 [facility] CenterYsipznlJHEIWVEBQF4605-40-13 09:19:00 Test Item Value Reference Range Interpretation Comments MCH (test code = MCH) 21.1 pg 27.0-31.0 [facility] CenterGhxxxmePHHUZZFXJQ3276-86-80 09:19:00 Test Item Value Reference Range Interpretation Comments Hct (test code = Hct) 27.6 36.0-48.0 [facility] CenterKzqzpjfLXQLUAHZDN3147-64-99 09:19:00 Test Item Value Reference Range Interpretation Comments MCV (test code = MCV) 68.8 80.0-98.0 [facility] CenterAzubhvbQDUIJCRENV1583-91-60 09:19:00 Test Item Value Reference Range Interpretation Comments WBC (test code = WBC) 5.1 3.7-10.4 [facility] HospitalHamlujpIQJPCVVXYVCX4172-45-03 09:19:00 Test Item Value Reference Range Interpretation Comments Potassium Lvl (test code = Potassium 4.4 3.5-5.1 Lvl) [facility] HospitalDpbioeyCZPAMQHOWDFZ8288-25-37 09:19:00 Test Item Value Reference Range Interpretation Comments Sodium Lvl (test code = Sodium Lvl) 139 135-145 [facility] HospitalRpzmliaQPELGERVYTHS6173-36-09 09:19:00 Test Item Value Reference Range Interpretation Comments Chloride Lvl (test code = Chloride Lvl) 107 95-109 [facility] HospitalNwpeuogPNKFLCTMRGNV9821-06-70 09:19:00 Test Item Value Reference Range Interpretation Comments eGFR (test code = eGFR) 107 [facility] HospitalJtbqcslXVPUSBBQXWBB0194-43-24 09:19:00 Test Item Value Reference Range Interpretation Comments CO2 (test code = CO2) 20 24-32 [facility] HospitalQneddkpEOECVQLAARVP0332-55-84 09:19:00 Test Item Value Reference Range Interpretation Comments Calcium Lvl (test code = Calcium Lvl) 9.5 8.5-10.5 [facility] HospitalDtmfustVGNYBROEYVUH5658-54-08 09:19:00 Test Item Value Reference Range Interpretation Comments Total Protein (test code = Total 7.7 6.4-8.4 Protein) [facility] HospitalJskgvcyQXBJOIAQFJPK9885-53-01 09:19:00 Test Item Value Reference Range Interpretation Comments Albumin Lvl (test code = Albumin Lvl) 2.9 3.5-5.0 [facility] HospitalKikzhnkVLXRNOQNOQLO5274-44-21 09:19:00 Test Item Value Reference Range Interpretation Comments ALT (test code = ALT) 21 See_Comment [Auto mated message] The system which ge nerated this result transmit kuldip reference range : <=65. The reference range was not used to interpr et this result as abiodun l/abnormal. [facility] HospitalXzllfmzKSWPAXFTHIBD2468-17-72 09:19:00 Test Item Value Reference Range Interpretation Comments AST (test code = AST) 27 See_Comment [Auto mated message] The system which ge nerated this result transmit kuldip reference range : <=37. The reference range was not used to interpr et this result as abiodun l/abnormal. [facility] HospitalImtgchiIAMGDRHWPUZZ0866-62-19 09:19:00 Test Item Value Reference Range Interpretation Comments Alk Phos (test code = Alk Phos) 81 39-136 [facility] HospitalXgefqhcZEWJBAUABDNC2018-72-97 09:19:00 Test Item Value Reference Range Interpretation Comments Bili Total (test code = Bili Total) 0.4 0.2-1.3 [facility] HospitalWurxdpfVDTOXYTJHTGU3397-82-62 09:19:00 Test Item Value Reference Range Interpretation Comments Creatinine Lvl (test code = Creatinine 0.8 0.5-1.4 Lvl) [facility] HospitalHvaqgbgIPYCCYQGNESO6538-52-49 09:19:00 Test Item Value Reference Range Interpretation Comments Glucose Lvl (test code = Glucose Lvl) 88 70-99 [facility] HospitalFhyusezJJLTGAJDAHZJ0288-05-67 09:19:00 Test Item Value Reference Range Interpretation Comments BUN (test code = BUN) 7 7-22 [facility] HospitalPlufdcdFARAQBLOGUGO5219-64-13 09:19:00 Test Item Value Reference Range Interpretation Comments AGAP (test code = AGAP) 16.4 10.0-20.0 [facility] HospitalKyywsrqYHXBSVXVZNYS7703-48-81 09:19:00 Test Item Value Reference Range Interpretation Comments B/C Ratio (test code = B/C Ratio) 9 6-25 [facility] HospitalSbdruskMZUDSSWCZJTQ5504-15-97 09:19:00 Test Item Value Reference Range Interpretation Comments Globulin (test code = Globulin) 4.8 2.0-4.0 [facility] HospitalIsbdhjfKUAUOGPVSFAR7637-80-60 09:19:00 Test Item Value Reference Range Interpretation Comments A/G Ratio (test code = A/G Ratio) 0.6 0.7-1.6 [facility] CenterJnhcwttQYSXXEKCYL9219-41-45 09:19:00 Test Item Value Reference Range Interpretation Comments Segs (test code = Segs) 54.4 45.0-75.0 [facility] CenterDjaormkNBJDIYCMBG5044-17-35 09:19:00 Test Item Value Reference Range Interpretation Comments Lymphocytes (test code = Lymphocytes) 31.6 20.0-40.0 [facility] CenterXglwhtmRVJHKFGYMF5379-29-85 09:19:00 Test Item Value Reference Range Interpretation Comments Basophils (test code = 0.9 See_Comment [Aut omated message] The Basophils) system which ge nerated this result tra nsmitted reference range : <=1.0. The reference r nilam was not used to int erpret this result as normal/abnormal . [facility] CenterHyabwtbZMIXBHPPVV9124-66-92 09:19:00 Test Item Value Reference Range Interpretation Comments Segs-Bands # (test code = Segs-Bands #) 2.8 1.5-8.1 [facility] CenterSktgvnpRLZWOHTVLA4766-99-08 09:19:00 Test Item Value Reference Range Interpretation Comments Monocytes (test code = Monocytes) 10.8 2.0-12.0 [facility] CenterBjxrzxwHSIJYGSEFB1900-25-56 09:19:00 Test Item Value Reference Range Interpretation Comments Eosinophils # (test code 0.1 See_Comment [A utomated message] The = Eosinophils #) system whic h generated this result tra nsmitted reference range : <=0.5. The reference r nilam was not used to int erpret this result as normal/abnormal . [facility] CenterIohliscYSCYIVTMQP5620-59-25 09:19:00 Test Item Value Reference Range Interpretation Comments Eosinophils (test code = 2.3 See_Comment [A utomated message] The Eosinophils) system which ge nerated this result tra nsmitted reference range : <=4.0. The reference r nilam was not used to int erpret this result as normal/abnormal . [facility] CenterNnwseehVZTWIIQYTJ2779-65-61 09:19:00 Test Item Value Reference Range Interpretation Comments Microcyte (test code = 3+ *NA*(11/06/14 4:19 Microcyte) AM) [facility] CenterRscyonkSWZIDRUEXO5371-02-23 09:19:00 Test Item Value Reference Range Interpretation Comments Lymphocytes # (test code = Lymphocytes 1.6 1.0-5.5 #) [facility] CenterProhywwGJRCKIAYKD4127-86-77 09:19:00 Test Item Value Reference Range Interpretation Comments Monocytes # (test code 0.6 See_Comment [Aut omated message] The = Monocytes #) system which generated this result tra nsmitted reference range : <=0.8. The reference r nilam was not used to int erpret this result as normal/abnormal . [facility] CenterZzeglyzZKMSZFOHHD6989-17-25 09:19:00 Test Item Value Reference Range Interpretation Comments MCHC (test code = MCHC) 30.6 32.0-36.0 [facility] CenterYzignyyMPRVZMIPCJ8226-03-67 09:19:00 Test Item Value Reference Range Interpretation Comments MPV (test code = MPV) 8.2 7.4-10.4 [facility] CenterKulcdjdIKOJKNIWAR0658-70-58 09:19:00 Test Item Value Reference Range Interpretation Comments RDW (test code = RDW) 17.5 11.5-14.5 [facility] CenterFxagkvyBFZHZMSYRR1301-08-55 09:19:00 Test Item Value Reference Range Interpretation Comments Platelet (test code = Platelet) 257 133-450 [facility] CenterNdiwqjwDAFOMVSXNY8655-18-11 09:19:00 Test Item Value Reference Range Interpretation Comments RBC (test code = RBC) 4.00 4.20-5.40 [facility] CenterHcotdasJFCNYCIHCF4439-24-10 09:19:00 Test Item Value Reference Range Interpretation Comments Hgb (test code = Hgb) 8.4 12.0-16.0 [facility] CenterKdduprhRADPLFHFJE4906-65-93 09:19:00 Test Item Value Reference Range Interpretation Comments MCH (test code = MCH) 21.1 pg 27.0-31.0 [facility] CenterIsuopibUDANWCORLB4058-50-69 09:19:00 Test Item Value Reference Range Interpretation Comments Hct (test code = Hct) 27.6 36.0-48.0 [facility] CenterTvwpdrhQQWEYFDHVX8488-80-20 09:19:00 Test Item Value Reference Range Interpretation Comments MCV (test code = MCV) 68.8 80.0-98.0 [facility] CenterAbrcgoqNKZZLQHAFL3692-09-16 09:19:00 Test Item Value Reference Range Interpretation Comments WBC (test code = WBC) 5.1 3.7-10.4 [facility]2015-08-14 04:28:00 Test Item Value Reference Range Interpretation Comments RBC Folate (test code = RBC Folate) 2908 280791 [facility]2015-08-14 04:28:00 Test Item Value Reference Range Interpretation Comments Folate Lvl (test code = Folate Lvl) 10.4 [facility]2015-08-14 04:28:00 Test Item Value Reference Range Interpretation Comments Vitamin B12 Lvl (test code = Vitamin [phone] B12 Lvl) [facility]2015-08-14 04:28:00 Test Item Value Reference Range Interpretation Comments TIBC (test code = TIBC) 434 228-428 [facility]2015-08-14 04:28:00 Test Item Value Reference Range Interpretation Comments Iron (test code = Iron) 15 30-160 [facility]2015-08-14 04:28:00 Test Item Value Reference Range Interpretation Comments % Satur Fe (test code = % Satur Fe) 3 12-57 [facility]2015-08-14 04:28:00 Test Item Value Reference Range Interpretation Comments UIBC (test code = UIBC) 419 110-370 [facility]2015-08-14 04:28:00 Test Item Value Reference Range Interpretation Comments Ferritin Lvl (test code = Ferritin Lvl) 2 5-204 [facility] NUXWK0355-41-07 04:28:00 Test Item Value Reference Range Interpretation Comments LDH (test code = LDH) 114 98-192 [facility] CenterXbfwessIGCOVPKWBC6231-28-17 04:28:00 Test Item Value Reference Range Interpretation Comments Retic Auto (test code = Retic Auto) 1.7 0.5-1.5 [facility] PointeDuggfeuAOCYBIRWVK9468-63-57 04:28:00 Test Item Value Reference Range Interpretation Comments Homocyst Tot (test code = Homocyst Tot) 12.8 3.7-13.9 [facility]2015-08-14 04:28:00 Test Item Value Reference Range Interpretation Comments RBC Folate (test code = RBC Folate) 1146 366-546 [facility]2015-08-14 04:28:00 Test Item Value Reference Range Interpretation Comments Folate Lvl (test code = Folate Lvl) 10.4 [facility]2015-08-14 04:28:00 Test Item Value Reference Range Interpretation Comments Vitamin B12 Lvl (test code = Vitamin [phone] B12 Lvl) [facility]2015-08-14 04:28:00 Test Item Value Reference Range Interpretation Comments TIBC (test code = TIBC) 434 228-428 [facility]2015-08-14 04:28:00 Test Item Value Reference Range Interpretation Comments Iron (test code = Iron) 15 30-160 [facility]2015-08-14 04:28:00 Test Item Value Reference Range Interpretation Comments % Satur Fe (test code = % Satur Fe) 3 12-57 [facility]2015-08-14 04:28:00 Test Item Value Reference Range Interpretation Comments UIBC (test code = UIBC) 419 110-370 [facility]2015-08-14 04:28:00 Test Item Value Reference Range Interpretation Comments Ferritin Lvl (test code = Ferritin Lvl) 2 5-204 [facility]CHE[facility] XJJPQ8331-55-84 04:28:00 Test Item Value Reference Range Interpretation Comments LDH (test code = LDH) 114 98-192 [facility] PointeRumhcbsAVCAGNVKFI1212-23-97 04:28:00 Test Item Value Reference Range Interpretation Comments Retic Auto (test code = Retic Auto) 1.7 0.5-1.5 [facility]inteXhpmqmkIHZAFMQATL9049-92-76 04:28:00 Test Item Value Reference Range Interpretation Comments Homocyst Tot (test code = Homocyst Tot) 12.8 3.7-13.9 [facility]2015-08-14 04:28:00 Test Item Value Reference Range Interpretation Comments RBC Folate (test code = RBC Folate) 3534 694-817 [facility]2015-08-14 04:28:00 Test Item Value Reference Range Interpretation Comments Folate Lvl (test code = Folate Lvl) 10.4 [facility]2015-08-14 04:28:00 Test Item Value Reference Range Interpretation Comments Vitamin B12 Lvl (test code = Vitamin [phone] B12 Lvl) [facility]2015-08-14 04:28:00 Test Item Value Reference Range Interpretation Comments TIBC (test code = TIBC) 434 228-428 [facility]2015-08-14 04:28:00 Test Item Value Reference Range Interpretation Comments Iron (test code = Iron) 15 30-160 [facility]2015-08-14 04:28:00 Test Item Value Reference Range Interpretation Comments % Satur Fe (test code = % Satur Fe) 3 12-57 [facility]2015-08-14 04:28:00 Test Item Value Reference Range Interpretation Comments UIBC (test code = UIBC) 419 110-370 [facility]2015-08-14 04:28:00 Test Item Value Reference Range Interpretation Comments Ferritin Lvl (test code = Ferritin Lvl) 2 5-204 [facility] KOZUB6473-41-97 04:28:00 Test Item Value Reference Range Interpretation Comments LDH (test code = LDH) 114 98-192 [facility] PointeUrqjjioWHVMKIWCXM5885-04-33 04:28:00 Test Item Value Reference Range Interpretation Comments Retic Auto (test code = Retic Auto) 1.7 0.5-1.5 [facility] PointeRysnwndTBSDXQIWRM8710-26-69 04:28:00 Test Item Value Reference Range Interpretation Comments Homocyst Tot (test code = Homocyst Tot) 12.8 3.7-13.9 [facility] XPXBP9261-54-93 04:28:00 Test Item Value Reference Range Interpretation Comments RBC Folate (test code = RBC Folate) 8267 280791 [facility] WALLN5959-10-92 04:28:00 Test Item Value Reference Range Interpretation Comments Folate Lvl (test code = Folate Lvl) 10.4 [facility]2015-08-14 04:28:00 Test Item Value Reference Range Interpretation Comments Vitamin B12 Lvl (test code = Vitamin [phone] B12 Lvl) [facility]2015-08-14 04:28:00 Test Item Value Reference Range Interpretation Comments TIBC (test code = TIBC) 434 228-428 [facility] QFNYK6418-23-04 04:28:00 Test Item Value Reference Range Interpretation Comments Iron (test code = Iron) 15 30-160 [facility] [facility] 04:28:00 Test Item Value Reference Range Interpretation Comments % Satur Fe (test code = % Satur Fe) 3 12-57 [facility] [id number] 04:28:00 Test Item Value Reference Range Interpretation Comments UIBC (test code = UIBC) 419 110-370 [facility]2015-08-14 04:28:00 Test Item Value Reference Range Interpretation Comments Ferritin Lvl (test code = Ferritin Lvl) 2 5-204 [facility] [id number] 04:28:00 Test Item Value Reference Range Interpretation Comments LDH (test code = LDH) 114 98-192 [facility] PointeJrkdyonUPWINKRBIT7189-04-82 04:28:00 Test Item Value Reference Range Interpretation Comments Retic Auto (test code = Retic Auto) 1.7 0.5-1.5 [facility] PointeDyulrllUJNXGYYQBH3527-87-75 04:28:00 Test Item Value Reference Range Interpretation Comments Homocyst Tot (test code = Homocyst Tot) 12.8 3.7-13.9 [facility]2015-08-14 04:28:00 Test Item Value Reference Range Interpretation Comments RBC Folate (test code = RBC Folate) 1058 280791 [facility] [id number] 04:28:00 Test Item Value Reference Range Interpretation Comments Folate Lvl (test code = Folate Lvl) 10.4 [facility]2015-08-14 04:28:00 Test Item Value Reference Range Interpretation Comments Vitamin B12 Lvl (test code = Vitamin 333 434-5831 B12 Lvl) [facility]2015-08-14 04:28:00 Test Item Value Reference Range Interpretation Comments TIBC (test code = TIBC) 434 228-428 [facility]2015-08-14 04:28:00 Test Item Value Reference Range Interpretation Comments Iron (test code = Iron) 15 30-160 [facility]2015-08-14 04:28:00 Test Item Value Reference Range Interpretation Comments % Satur Fe (test code = % Satur Fe) 3 12-57 [facility] [id number] 04:28:00 Test Item Value Reference Range Interpretation Comments UIBC (test code = UIBC) 419 110-370 [facility] [id number] 04:28:00 Test Item Value Reference Range Interpretation Comments Ferritin Lvl (test code = Ferritin Lvl) 2 5-204 [facility] [id number] 04:28:00 Test Item Value Reference Range Interpretation Comments LDH (test code = LDH) 114 98-192 [facility]in[id number] 04:28:00 Test Item Value Reference Range Interpretation Comments Retic Auto (test code = Retic Auto) 1.7 0.5-1.5 [facility] PointeRbpyxkaRAJAOUNGTC5405-74-14 04:28:00 Test Item Value Reference Range Interpretation Comments Homocyst Tot (test code = Homocyst Tot) 12.8 3.7-13.9 [facility] AND [id number] 22:15:00 Test Item Value Reference Range Interpretation Comments Occult Bld Stl (test Negative (11/05/14 5:15 code = Occult Bld Stl) PM) [facility] AND [id number] 22:15:00 Test Item Value Reference Range Interpretation Comments Occult Bld Stl (test Negative (11/05/14 5:15 code = Occult Bld Stl) PM) [facility] AND [id number] 22:15:00 Test Item Value Reference Range Interpretation Comments Occult Bld Stl (test Negative (11/05/14 5:15 code = Occult Bld Stl) PM) [facility] AND [id number] 22:15:00 Test Item Value Reference Range Interpretation Comments Occult Bld Stl (test Negative (11/05/14 5:15 code = Occult Bld Stl) PM) [facility] AND [id number] 22:15:00 Test Item Value Reference Range Interpretation Comments Occult Bld Stl (test Negative (11/05/14 5:15 code = Occult Bld Stl) PM) [facility] BANK [id number] 21:23:00 Test Item Value Reference Range Interpretation Comments ABO/Rh (test code = ABO/Rh) B POS [facility] [id number] 21:23:00 Test Item Value Reference Range Interpretation Comments Antibody Scrn (test Negative (11/05/14 4:23 code = Antibody Scrn) PM) [facility] [id number] 21:23:00 Test Item Value Reference Range Interpretation Comments ABO/Rh (test code = ABO/Rh) B POS [facility] [id number] 21:23:00 Test Item Value Reference Range Interpretation Comments Antibody Scrn (test Negative (11/05/14 4:23 code = Antibody Scrn) PM) [facility] [id number] 21:23:00 Test Item Value Reference Range Interpretation Comments ABO/Rh (test code = ABO/Rh) B [facility] [id number] 21:23:00 Test Item Value Reference Range Interpretation Comments Antibody Scrn (test Negative (11/05/14 4:23 code = Antibody Scrn) PM) [facility] [id number] 21:23:00 Test Item Value Reference Range Interpretation Comments ABO/Rh (test code = ABO/Rh) B [facility] [id number] 21:23:00 Test Item Value Reference Range Interpretation Comments Antibody Scrn (test Negative (11/05/14 4:23 code = Antibody Scrn) PM) [facility] [id number] 21:23:00 Test Item Value Reference Range Interpretation Comments ABO/Rh (test code = ABO/Rh) B [facility] [employer] [id number] 21:23:00 Test Item Value Reference Range Interpretation Comments Antibody Scrn (test Negative (11/05/14 4:23 code = Antibody Scrn) PM) [facility] [id number] 20:02:00 Test Item Value Reference Range Interpretation Comments CK MB (test code = CK MB) no gt 0.5-3.6 [employer]2015-08-13 20:02:00 Test Item Value Reference Range Interpretation Comments Troponin-I (test code no gt See_Comment [Auto mated message] The = Troponin-I) system which g enerated this result transmit kuldip reference range : <=0.40. The reference r nilam was not used to interpr et this result as abiodun l/abnormal. [facility] [id number] 20:02:00 Test Item Value Reference Range Interpretation Comments Total CK (test code = Total CK) 148 12-191 [facility]inteHealint [id number] 20:02:00 Test Item Value Reference Range Interpretation Comments CK MB Index (test no gt See_Comment [Automate d message] The code = CK MB Index) system w [facility] generated this result transmit kuldip reference range : <=2.5. The reference range was not used to interpr et this result as abiodun l/abnormal. [facility] [employer] [id number] 20:02:00 Test Item Value Reference Range Interpretation Comments eGFR (test code = eGFR) 104 [facility] [id number] 20:02:00 Test Item Value Reference Range Interpretation Comments CO2 (test code = CO2) 27 24-32 [facility] [id number] 20:02:00 Test Item Value Reference Range Interpretation Comments Calcium Lvl (test code = Calcium Lvl) 9.8 8.5-10.5 [facility] [employer] [id number] 20:02:00 Test Item Value Reference Range Interpretation Comments Bili Total (test code = Bili Total) 0.3 0.2-1.3 [facility] [id number] 20:02:00 Test Item Value Reference Range Interpretation Comments BUN (test code = BUN) 7 7-22 [facility] [id number] 20:02:00 Test Item Value Reference Range Interpretation Comments Glucose Lvl (test code = Glucose Lvl) 87 70-99 [facility] [id number] 20:02:00 Test Item Value Reference Range Interpretation Comments Sodium Lvl (test code = Sodium Lvl) 138 135-145 [facility] [id number] 20:02:00 Test Item Value Reference Range Interpretation Comments Chloride Lvl (test code = Chloride Lvl) 104 95-109 [facility] [id number] 20:02:00 Test Item Value Reference Range Interpretation Comments Potassium Lvl (test code = Potassium 3.5 3.5-5.1 Lvl) [facility]2015-08-13 20:02:00 Test Item Value Reference Range Interpretation Comments Creatinine Lvl (test code = Creatinine 0.8 0.5-1.4 Lvl) [place] 188935-08-13 20:02:00 Test Item Value Reference Range Interpretation Comments Total Protein (test code = Total 8.2 6.4-8.4 Protein) [facility]2015-08-13 20:02:00 Test Item Value Reference Range Interpretation Comments AST (test code = AST) 17 See_Comment [Auto mated message] The system which ge nerated this result transmit kuldip reference range : <=37. The reference range was not used to interpr et this result as abiodun l/abnormal. [facility]2015-08-13 20:02:00 Test Item Value Reference Range Interpretation Comments Globulin (test code = Globulin) 5.0 2.0-4.0 [facility]2015-08-13 20:02:00 Test Item Value Reference Range Interpretation Comments A/G Ratio (test code = A/G Ratio) 0.6 0.7-1.6 [facility]2015-08-13 20:02:00 Test Item Value Reference Range Interpretation Comments B/C Ratio (test code = B/C Ratio) 9 6-25 [place] 188935-08-13 20:02:00 Test Item Value Reference Range Interpretation Comments AGAP (test code = AGAP) 10.5 10.0-20.0 [facility]2015-08-13 20:02:00 Test Item Value Reference Range Interpretation Comments Alk Phos (test code = Alk Phos) 83 39-136 [facility]2015-08-13 20:02:00 Test Item Value Reference Range Interpretation Comments Albumin Lvl (test code = Albumin Lvl) 3.2 3.5-5.0 [facility]2015-08-13 20:02:00 Test Item Value Reference Range Interpretation Comments ALT (test code = ALT) 18 See_Comment [Auto mated message] The system which ge nerated this result transmit kuldip reference range : <=65. The reference range was not used to interpr et this result as abiodun l/abnormal. [facility] Cent[id number] 20:02:00 Test Item Value Reference Range Interpretation Comments PTT (test code = PTT) 29.7 s 22.9-35.8 [facility] CenterGhdetvoGSJBNJLNQF3535-64-40 20:02:00 Test Item Value Reference Range Interpretation Comments PT (test code = PT) 15.1 s 12.0-14.7 [facility] CenterTlzikumAJICXGQTZN2045-30-31 20:02:00 Test Item Value Reference Range Interpretation Comments INR (test code = INR) 1.18 0.85-1.17 [facility] CenterBgivtfvTOPXJBOEIW6766-45-81 20:02:00 Test Item Value Reference Range Interpretation Comments WBC (test code = WBC) 5.0 3.7-10.4 [facility] CenterEwbxldnTLIHZWLPOD5090-89-32 20:02:00 Test Item Value Reference Range Interpretation Comments RBC (test code = RBC) 4.01 4.20-5.40 [facility] CenterKshefyeBHXLNAIIJI1091-33-21 20:02:00 Test Item Value Reference Range Interpretation Comments Hgb (test code = Hgb) 8.2 12.0-16.0 [facility] CenterGrelzwhWSRPCGHUTC6060-46-61 20:02:00 Test Item Value Reference Range Interpretation Comments MPV (test code = MPV) 7.6 7.4-10.4 [facility] CenterSesfmvdXUJBUFJSNK6644-85-64 20:02:00 Test Item Value Reference Range Interpretation Comments RDW (test code = RDW) 17.2 11.5-14.5 [facility] CenterKwlldbcFTAXLXQWWF0481-00-37 20:02:00 Test Item Value Reference Range Interpretation Comments Platelet (test code = Platelet) 281 133-450 [facility] CenterHlwctqpEDXXLYSMMU8873-58-84 20:02:00 Test Item Value Reference Range Interpretation Comments MCH (test code = MCH) 20.4 pg 27.0-31.0 [facility] CenterEvkyamoYXXQWLVROO6905-66-54 20:02:00 Test Item Value Reference Range Interpretation Comments MCHC (test code = MCHC) 29.8 32.0-36.0 [facility] CenterRaardwaLKVOJLVTKW1363-28-13 20:02:00 Test Item Value Reference Range Interpretation Comments MCV (test code = MCV) 68.4 80.0-98.0 [facility] CenterAuzpcioHRAWDDHEFV9210-52-72 20:02:00 Test Item Value Reference Range Interpretation Comments Hct (test code = Hct) 27.4 36.0-48.0 [facility] CenterZmgwmkdZNMFNNTWXN4698-80-92 20:02:00 Test Item Value Reference Range Interpretation Comments Segs (test code = Segs) 63.4 45.0-75.0 [facility] CenterArwghjpCMESKNMUBM4163-36-40 20:02:00 Test Item Value Reference Range Interpretation Comments Hypochrom (test code = 1+ (11/05/14 3:02 PM) Hypochrom) [facility] CenterDzzbokqNWLOGFZLWT0197-76-86 20:02:00 Test Item Value Reference Range Interpretation Comments Monocytes (test code = Monocytes) 10.2 2.0-12.0 [facility] CenterMbazpxfNWQLTADFMH7941-29-87 20:02:00 Test Item Value Reference Range Interpretation Comments Eosinophils (test code = 1.5 See_Comment [A utomated message] The Eosinophils) system which ge nerated this result tra nsmitted reference range : <=4.0. The reference r nilam was not used to int erpret this result as normal/abnormal . [facility] CenterUouvdbcOHIGCXQAQB8051-51-80 20:02:00 Test Item Value Reference Range Interpretation Comments Basophils (test code = 0.3 See_Comment [Aut omated message] The Basophils) system which ge nerated this result tra nsmitted reference range : <=1.0. The reference r nilam was not used to int erpret this result as normal/abnormal . [facility] CenterMdsojloQXSEXJPSWF2692-60-01 20:02:00 Test Item Value Reference Range Interpretation Comments Lymphocytes (test code = Lymphocytes) 24.6 20.0-40.0 [facility] CenterZvujxpsYNSLBMCODB7015-09-16 20:02:00 Test Item Value Reference Range Interpretation Comments Plt Morph (test code = Normal (11/05/14 3:02 Plt Morph) PM) [facility] CenterMnfbgkvBMABWEKHKZ2387-20-84 20:02:00 Test Item Value Reference Range Interpretation Comments RBC Morph (test code = See Note (11/05/14 3:02 RBC Morph) PM) [facility] CenterLqdqnmeWRKMCDPSZA1889-33-93 20:02:00 Test Item Value Reference Range Interpretation Comments Lymphocytes # (test code = Lymphocytes 1.2 1.0-5.5 #) [facility] CenterQirxdpkTJVJVXDOCQ2577-11-64 20:02:00 Test Item Value Reference Range Interpretation Comments Monocytes # (test code 0.5 See_Comment [Aut omated message] The = Monocytes #) system which generated this result tra nsmitted reference range : <=0.8. The reference r nilam was not used to int erpret this result as normal/abnormal . [facility] CenterPvvpvqySPWLSKICFQ3511-43-84 20:02:00 Test Item Value Reference Range Interpretation Comments Segs-Bands # (test code = Segs-Bands #) 3.2 1.5-8.1 [facility]rGYIJJKCJNZ8066-[facility]-68 20:02:00 Test Item Value Reference Range Interpretation Comments Microcyte (test code = 3+ *NA*(11/05/14 3:02 Microcyte) PM) [facility] CenterShojjjpCPIFGSXQGI8226-42-84 20:02:00 Test Item Value Reference Range Interpretation Comments Eosinophils # (test code 0.1 See_Comment [A utomated message] The = Eosinophils #) system [facility] h generated this result tra nsmitted reference range : <=0.5. The reference r nilam was not used to int erpret this result as normal/abnormal . [facility] HospitalW[facility] Media2015-08-13 20:02:00 Test Item Value Reference Range Interpretation Comments CK MB (test code = CK MB) no gt 0.5-3.6 [facility] [place] DesignsNEON ConciergePZLELUS6831-92-10 20:02:00 Test Item Value Reference Range Interpretation Comments Troponin-I (test code no gt See_Comment [Auto mated message] The = Troponin-I) system which g enerated this result transmit kuldip reference range : <=0.40. The reference r nilam was not used to interpr et this result as abiodun l/abnormal. [facility] HospitalWikipixel FRCBFMK7118-43-80 20:02:00 Test Item Value Reference Range Interpretation Comments Total CK (test code = Total CK) 148 12-191 [facility]inte[facility] [place] DesignsNEON ConciergeOQFHTKP3780-04-72 20:02:00 Test Item Value Reference Range Interpretation Comments CK MB Index (test no gt See_Comment [Automate d message] The code = CK MB Index) system w [facility] generated this result transmit kuldip reference range : <=2.5. The reference range was not used to interpr et this result as abiodun l/abnormal. [facility]2015-08-13 20:02:00 Test Item Value Reference Range Interpretation Comments eGFR (test code = eGFR) 104 [facility]2015-08-13 20:02:00 Test Item Value Reference Range Interpretation Comments CO2 (test code = CO2) 27 24-32 [place] 188935-08-13 20:02:00 Test Item Value Reference Range Interpretation Comments Calcium Lvl (test code = Calcium Lvl) 9.8 8.5-10.5 [facility]2015-08-13 20:02:00 Test Item Value Reference Range Interpretation Comments Bili Total (test code = Bili Total) 0.3 0.2-1.3 [facility]2015-08-13 20:02:00 Test Item Value Reference Range Interpretation Comments BUN (test code = BUN) 7 7-22 [facility]2015-08-13 20:02:00 Test Item Value Reference Range Interpretation Comments Glucose Lvl (test code = Glucose Lvl) 87 70-99 [facility]2015-08-13 20:02:00 Test Item Value Reference Range Interpretation Comments Sodium Lvl (test code = Sodium Lvl) 138 135-145 [facility]2015-08-13 20:02:00 Test Item Value Reference Range Interpretation Comments Chloride Lvl (test code = Chloride Lvl) 104 95-109 [facility]2015-08-13 20:02:00 Test Item Value Reference Range Interpretation Comments Potassium Lvl (test code = Potassium 3.5 3.5-5.1 Lvl) [facility]2015-08-13 20:02:00 Test Item Value Reference Range Interpretation Comments Creatinine Lvl (test code = Creatinine 0.8 0.5-1.4 Lvl) [facility]2015-08-13 20:02:00 Test Item Value Reference Range Interpretation Comments Total Protein (test code = Total 8.2 6.4-8.4 Protein) [facility]2015-08-13 20:02:00 Test Item Value Reference Range Interpretation Comments AST (test code = AST) 17 See_Comment [Auto mated message] The system which ge nerated this result transmit kuldip reference range : <=37. The reference range was not used to interpr et this result as abiodun l/abnormal. [facility]2015-08-13 20:02:00 Test Item Value Reference Range Interpretation Comments Globulin (test code = Globulin) 5.0 2.0-4.0 [facility]2015-08-13 20:02:00 Test Item Value Reference Range Interpretation Comments A/G Ratio (test code = A/G Ratio) 0.6 0.7-1.6 [facility]2015-08-13 20:02:00 Test Item Value Reference Range Interpretation Comments B/C Ratio (test code = B/C Ratio) 9 6-25 [facility]2015-08-13 20:02:00 Test Item Value Reference Range Interpretation Comments AGAP (test code = AGAP) 10.5 10.0-20.0 [facility]2015-08-13 20:02:00 Test Item Value Reference Range Interpretation Comments Alk Phos (test code = Alk Phos) 83 39-136 [facility]2015-08-13 20:02:00 Test Item Value Reference Range Interpretation Comments Albumin Lvl (test code = Albumin Lvl) 3.2 3.5-5.0 [facility]2015-08-13 20:02:00 Test Item Value Reference Range Interpretation Comments ALT (test code = ALT) 18 See_Comment [Auto mated message] The system which ge nerated this result transmit kuldip reference range : <=65. The reference range was not used to interpr et this result as abiodun l/abnormal. [facility] CenterBdsmukfBSMKLSXTMG7774-75-78 20:02:00 Test Item Value Reference Range Interpretation Comments PTT (test code = PTT) 29.7 s 22.9-35.8 [facility] CenterMjvomfeMNZMTIHBKY3762-97-06 20:02:00 Test Item Value Reference Range Interpretation Comments PT (test code = PT) 15.1 s 12.0-14.7 [facility] CenterAvcrqxiLDQMCTKRBV9813-31-83 20:02:00 Test Item Value Reference Range Interpretation Comments INR (test code = INR) 1.18 0.85-1.17 [facility] CenterIdtkcdrRFCDBCKXPF8664-03-55 20:02:00 Test Item Value Reference Range Interpretation Comments WBC (test code = WBC) 5.0 3.7-10.4 [place] [address]-08-13 20:02:00 Test Item Value Reference Range Interpretation Comments RBC (test code = RBC) 4.01 4.20-5.40 [facility] CenterKelkafpMXLNFQVDDY4558-87-70 20:02:00 Test Item Value Reference Range Interpretation Comments Hgb (test code = Hgb) 8.2 12.0-16.0 [facility] CenterQxvsfvbBZOXLAXWSV1653-44-97 20:02:00 Test Item Value Reference Range Interpretation Comments MPV (test code = MPV) 7.6 7.4-10.4 [facility] CenterTtiikvvVGQPRRUGGM7907-35-34 20:02:00 Test Item Value Reference Range Interpretation Comments RDW (test code = RDW) 17.2 11.5-14.5 [facility] CenterMzvrcmrPVHUUBUGNP4637-39-77 20:02:00 Test Item Value Reference Range Interpretation Comments Platelet (test code = Platelet) 281 133-450 [facility] CenterQjisnomGWSIHDPXBN3245-52-23 20:02:00 Test Item Value Reference Range Interpretation Comments MCH (test code = MCH) 20.4 pg 27.0-31.0 [facility] CenterRphrlunXMMHZEUBZQ9952-32-00 20:02:00 Test Item Value Reference Range Interpretation Comments MCHC (test code = MCHC) 29.8 32.0-36.0 [facility] CenterRamtftkLPVFKJEISH7735-81-13 20:02:00 Test Item Value Reference Range Interpretation Comments MCV (test code = MCV) 68.4 80.0-98.0 [facility] CenterYbjukksHIFGFJCVTB3550-51-03 20:02:00 Test Item Value Reference Range Interpretation Comments Hct (test code = Hct) 27.4 36.0-48.0 [facility] CenterLztwtzcNIUJMZKQVX5339-39-55 20:02:00 Test Item Value Reference Range Interpretation Comments Segs (test code = Segs) 63.4 45.0-75.0 [facility] CenterFatsxuaDSPPKIWOVP2124-96-76 20:02:00 Test Item Value Reference Range Interpretation Comments Hypochrom (test code = 1+ (11/05/14 3:02 PM) Hypochrom) [facility] CenterFoxcxzqQWRHKQFYDU7207-57-37 20:02:00 Test Item Value Reference Range Interpretation Comments Monocytes (test code = Monocytes) 10.2 2.0-12.0 [facility] CenterLctbtsmGWHCVSKZUC0818-26-63 20:02:00 Test Item Value Reference Range Interpretation Comments Eosinophils (test code = 1.5 See_Comment [A utomated message] The Eosinophils) system which ge nerated this result tra nsmitted reference range : <=4.0. The reference r nilam was not used to int erpret this result as normal/abnormal . [facility] CenterKuzdkcjWRMCJFBYPD3259-77-49 20:02:00 Test Item Value Reference Range Interpretation Comments Basophils (test code = 0.3 See_Comment [Aut omated message] The Basophils) system which ge nerated this result tra nsmitted reference range : <=1.0. The reference r nilam was not used to int erpret this result as normal/abnormal . [facility] CenterVtuhppcYQXXCPOJCZ5946-71-07 20:02:00 Test Item Value Reference Range Interpretation Comments Lymphocytes (test code = Lymphocytes) 24.6 20.0-40.0 [facility] CenterQcjuvctRGUPLHACHN8212-00-39 20:02:00 Test Item Value Reference Range Interpretation Comments Plt Morph (test code = Normal (11/05/14 3:02 Plt Morph) PM) [facility] CenterZzokvtbPGXGQIEERA3440-69-31 20:02:00 Test Item Value Reference Range Interpretation Comments RBC Morph (test code = See Note (11/05/14 3:02 RBC Morph) PM) [facility] CenterBlmbkkmHLHVILCFWT7296-12-59 20:02:00 Test Item Value Reference Range Interpretation Comments Lymphocytes # (test code = Lymphocytes 1.2 1.0-5.5 #) [facility] CenterNdumrlmWQROGHGHXA9731-33-85 20:02:00 Test Item Value Reference Range Interpretation Comments Monocytes # (test code 0.5 See_Comment [Aut omated message] The = Monocytes #) system which generated this result tra nsmitted reference range : <=0.8. The reference r nilam was not used to int erpret this result as normal/abnormal . [facility] CenterSrvpsxaYJSQZGLYIL1079-72-02 20:02:00 Test Item Value Reference Range Interpretation Comments Segs-Bands # (test code = Segs-Bands #) 3.2 1.5-8.1 [facility] CenterMqvpnhmOHGPKKMRRF2143-94-44 20:02:00 Test Item Value Reference Range Interpretation Comments Microcyte (test code = 3+ *NA*(11/05/14 3:02 Microcyte) PM) [facility]baIU[facility]ACOTOSJ6146-[facility]-56 20:02:00 Test Item Value Reference Range Interpretation Comments Eosinophils # (test code 0.1 See_Comment [A utomated message] The = Eosinophils #) system whic h generated this result tra nsmitted reference range : <=0.5. The reference r nilam was not used to int erpret this result as normal/abnormal . [facility] HospitalResource DataCARNativeADAC [id number] 20:02:00 Test Item Value Reference Range Interpretation Comments CK MB (test code = CK MB) no gt 0.5-3.6 [facility] HospitalMAYKORAC [id number] 20:02:00 Test Item Value Reference Range Interpretation Comments Troponin-I (test code no gt See_Comment [Auto mated message] The = Troponin-I) system which g enerated this result transmit kuldip reference range : <=0.40. The reference r nilam was not used to interpr et this result as abiodun l/abnormal. [facility] HospitalInterlude [id number] 20:02:00 Test Item Value Reference Range Interpretation Comments Total CK (test code = Total CK) 148 12-191 [facility]New [place] DesignsCOM[facility] [id number] 20:02:00 Test Item Value Reference Range Interpretation Comments CK MB Index (test no gt See_Comment [Automate d message] The code = CK MB Index) system w [facility] generated this result transmit kuldip reference range : <=2.5. The reference range was not used to interpr et this result as abiodun l/abnormal. [facility] [place] [id number] 20:02:00 Test Item Value Reference Range Interpretation Comments eGFR (test code = eGFR) 104 [facility] [place] [id number] 20:02:00 Test Item Value Reference Range Interpretation Comments CO2 (test code = CO2) 27 24-32 [facility] [place] [id number] 20:02:00 Test Item Value Reference Range Interpretation Comments Calcium Lvl (test code = Calcium Lvl) 9.8 8.5-10.5 [facility] [place] [id number] 20:02:00 Test Item Value Reference Range Interpretation Comments Bili Total (test code = Bili Total) 0.3 0.2-1.3 [facility] [place] [id number] 20:02:00 Test Item Value Reference Range Interpretation Comments BUN (test code = BUN) 7 7-22 [facility]2015-08-13 20:02:00 Test Item Value Reference Range Interpretation Comments Glucose Lvl (test code = Glucose Lvl) 87 70-99 [facility]2015-08-13 20:02:00 Test Item Value Reference Range Interpretation Comments Sodium Lvl (test code = Sodium Lvl) 138 135-145 [facility]2015-08-13 20:02:00 Test Item Value Reference Range Interpretation Comments Chloride Lvl (test code = Chloride Lvl) 104 95-109 [facility]2015-08-13 20:02:00 Test Item Value Reference Range Interpretation Comments Potassium Lvl (test code = Potassium 3.5 3.5-5.1 Lvl) [facility]2015-08-13 20:02:00 Test Item Value Reference Range Interpretation Comments Creatinine Lvl (test code = Creatinine 0.8 0.5-1.4 Lvl) [facility]2015-08-13 20:02:00 Test Item Value Reference Range Interpretation Comments Total Protein (test code = Total 8.2 6.4-8.4 Protein) [facility]2015-08-13 20:02:00 Test Item Value Reference Range Interpretation Comments AST (test code = AST) 17 See_Comment [Auto mated message] The system which ge nerated this result transmit kuldip reference range : <=37. The reference range was not used to interpr et this result as abiodun l/abnormal. [facility]2015-08-13 20:02:00 Test Item Value Reference Range Interpretation Comments Globulin (test code = Globulin) 5.0 2.0-4.0 [facility]2015-08-13 20:02:00 Test Item Value Reference Range Interpretation Comments A/G Ratio (test code = A/G Ratio) 0.6 0.7-1.6 [facility]2015-08-13 20:02:00 Test Item Value Reference Range Interpretation Comments B/C Ratio (test code = B/C Ratio) 9 6-25 [facility]2015-08-13 20:02:00 Test Item Value Reference Range Interpretation Comments AGAP (test code = AGAP) 10.5 10.0-20.0 [facility]2015-08-13 20:02:00 Test Item Value Reference Range Interpretation Comments Alk Phos (test code = Alk Phos) 83 39-136 [facility]2015-08-13 20:02:00 Test Item Value Reference Range Interpretation Comments Albumin Lvl (test code = Albumin Lvl) 3.2 3.5-5.0 [facility]2015-08-13 20:02:00 Test Item Value Reference Range Interpretation Comments ALT (test code = ALT) 18 See_Comment [Auto mated message] The system which ge nerated this result transmit kuldip reference range : <=65. The reference range was not used to interpr et this result as abiodun l/abnormal. [facility] CenterSfeexhwQWHZVRHEEZ9564-26-10 20:02:00 Test Item Value Reference Range Interpretation Comments PTT (test code = PTT) 29.7 s 22.9-35.8 [facility] CenterZjcqmbuKOOTABLSMS7628-30-07 20:02:00 Test Item Value Reference Range Interpretation Comments PT (test code = PT) 15.1 s 12.0-14.7 [facility] CenterRtvdlncRKCTBGDNKJ8411-83-62 20:02:00 Test Item Value Reference Range Interpretation Comments INR (test code = INR) 1.18 0.85-1.17 [facility] CenterZuocsxjYRIKKQOGDV6822-45-76 20:02:00 Test Item Value Reference Range Interpretation Comments WBC (test code = WBC) 5.0 3.7-10.4 [facility] CenterMrjobujWZNDZWPOTB6917-76-29 20:02:00 Test Item Value Reference Range Interpretation Comments RBC (test code = RBC) 4.01 4.20-5.40 [facility] CenterXoejqrsKSFAWBBMCF2065-85-22 20:02:00 Test Item Value Reference Range Interpretation Comments Hgb (test code = Hgb) 8.2 12.0-16.0 [facility] CenterQkalbbeEEMJLSOBYC4991-35-75 20:02:00 Test Item Value Reference Range Interpretation Comments MPV (test code = MPV) 7.6 7.4-10.4 [facility] CenterOtpqvrnATKJLRZBFC4734-52-89 20:02:00 Test Item Value Reference Range Interpretation Comments RDW (test code = RDW) 17.2 11.5-14.5 [facility] CenterWcfrgzvKEGPZCJJYK2043-56-12 20:02:00 Test Item Value Reference Range Interpretation Comments Platelet (test code = Platelet) 281 133-450 [facility] CenterFdosqxhCDDERSPQQX3187-90-60 20:02:00 Test Item Value Reference Range Interpretation Comments MCH (test code = MCH) 20.4 pg 27.0-31.0 [facility] CenterIrtdrpuKAOCJEETSN6078-80-47 20:02:00 Test Item Value Reference Range Interpretation Comments MCHC (test code = MCHC) 29.8 32.0-36.0 [facility] CenterRzlynsuADBPBMJNCX6200-80-49 20:02:00 Test Item Value Reference Range Interpretation Comments MCV (test code = MCV) 68.4 80.0-98.0 [facility] CenterTwcksowWDNZHUDOIV0993-50-99 20:02:00 Test Item Value Reference Range Interpretation Comments Hct (test code = Hct) 27.4 36.0-48.0 [facility] CenterMozcpxcBNHNNNUFFF3916-99-89 20:02:00 Test Item Value Reference Range Interpretation Comments Segs (test code = Segs) 63.4 45.0-75.0 [facility] CenterKkcintuUSWTJJYWJU1726-80-55 20:02:00 Test Item Value Reference Range Interpretation Comments Hypochrom (test code = 1+ (11/05/14 3:02 PM) Hypochrom) [facility] CenterVjisisxOJTSVCKXCM2985-37-48 20:02:00 Test Item Value Reference Range Interpretation Comments Monocytes (test code = Monocytes) 10.2 2.0-12.0 [facility] CenterTjidksyKRJJEYCHNR3724-54-08 20:02:00 Test Item Value Reference Range Interpretation Comments Eosinophils (test code = 1.5 See_Comment [A utomated message] The Eosinophils) system which ge nerated this result tra nsmitted reference range : <=4.0. The reference r nilam was not used to int erpret this result as normal/abnormal . [facility] CenterNewudejDUUEZCOYPH9106-41-26 20:02:00 Test Item Value Reference Range Interpretation Comments Basophils (test code = 0.3 See_Comment [Aut omated message] The Basophils) system which ge nerated this result tra nsmitted reference range : <=1.0. The reference r nilam was not used to int erpret this result as normal/abnormal . [facility] CenterThwaeioRPTERLMTUJ4231-21-16 20:02:00 Test Item Value Reference Range Interpretation Comments Lymphocytes (test code = Lymphocytes) 24.6 20.0-40.0 [facility] CenterKmzecrjRZPHUXAJJM2106-40-29 20:02:00 Test Item Value Reference Range Interpretation Comments Plt Morph (test code = Normal (11/05/14 3:02 Plt Morph) PM) [facility] CenterQtcjtsbKSLOVNTXXR5420-59-97 20:02:00 Test Item Value Reference Range Interpretation Comments RBC Morph (test code = See Note (11/05/14 3:02 RBC Morph) PM) [facility] CenterOwlcqgnDXVAJTUIOQ2882-90-38 20:02:00 Test Item Value Reference Range Interpretation Comments Lymphocytes # (test code = Lymphocytes 1.2 1.0-5.5 #) [facility] CenterLlwbvkjNZYSZRUVZJ8996-29-68 20:02:00 Test Item Value Reference Range Interpretation Comments Monocytes # (test code 0.5 See_Comment [Aut omated message] The = Monocytes #) system which generated this result tra nsmitted reference range : <=0.8. The reference r nilam was not used to int erpret this result as normal/abnormal . [facility] CenterPpaipahBKFQTJOSFS7079-13-35 20:02:00 Test Item Value Reference Range Interpretation Comments Segs-Bands # (test code = Segs-Bands #) 3.2 1.5-8.1 [facility] CenterHflfqarASDXKKBQHJ8788-46-76 20:02:00 Test Item Value Reference Range Interpretation Comments Microcyte (test code = 3+ *NA*(11/05/14 3:02 Microcyte) PM) [facility] CenterMgogzakXSNOWKZRMC9385-44-62 20:02:00 Test Item Value Reference Range Interpretation Comments Eosinophils # (test code 0.1 See_Comment [A utomated message] The = Eosinophils #) system whic h generated this result tra nsmitted reference range : <=0.5. The reference r nilam was not used to int erpret this result as normal/abnormal . [facility]inteCARDIAC LAZVVVZ3414-25-24 20:02:00 Test Item Value Reference Range Interpretation Comments CK MB (test code = CK MB) no gt 0.5-3.6 [facility] PointeCARAC BFKVYQE8113-61-57 20:02:00 Test Item Value Reference Range Interpretation Comments Troponin-I (test code no gt See_Comment [Auto mated message] The = Troponin-I) system which g enerated this result transmit kuldip reference range : <=0.40. The reference r nilam was not used to interpr et this result as abiodun l/abnormal. [facility] HospitalWikipixel [id number] 20:02:00 Test Item Value Reference Range Interpretation Comments Total CK (test code = Total CK) 148 12-191 [facility] HospitalInterlude [id number] 20:02:00 Test Item Value Reference Range Interpretation Comments CK MB Index (test no gt See_Comment [Automate d message] The code = CK MB Index) system w [facility] generated this result transmit kuldip reference range : <=2.5. The reference range was not used to interpr et this result as abiodun l/abnormal. [facility] [place] [id number] 20:02:00 Test Item Value Reference Range Interpretation Comments eGFR (test code = eGFR) 104 [facility] HospitalCliq [id number] 20:02:00 Test Item Value Reference Range Interpretation Comments CO2 (test code = CO2) 27 24-32 [facility] HospitalCliq [id number] 20:02:00 Test Item Value Reference Range Interpretation Comments Calcium Lvl (test code = Calcium Lvl) 9.8 8.5-10.5 [facility] [place] [id number] 20:02:00 Test Item Value Reference Range Interpretation Comments Bili Total (test code = Bili Total) 0.3 0.2-1.3 [facility] HospitalCliq [id number] 20:02:00 Test Item Value Reference Range Interpretation Comments BUN (test code = BUN) 7 7-22 [facility] HospitalCliq [id number] 20:02:00 Test Item Value Reference Range Interpretation Comments Glucose Lvl (test code = Glucose Lvl) 87 70-99 [facility] HospitalCliq [id number] 20:02:00 Test Item Value Reference Range Interpretation Comments Sodium Lvl (test code = Sodium Lvl) 138 135-145 [facility] HospitalCliq [id number] 20:02:00 Test Item Value Reference Range Interpretation Comments Chloride Lvl (test code = Chloride Lvl) 104 95-109 [facility] [place] [id number] 20:02:00 Test Item Value Reference Range Interpretation Comments Potassium Lvl (test code = Potassium 3.5 3.5-5.1 Lvl) [facility]2015-08-13 20:02:00 Test Item Value Reference Range Interpretation Comments Creatinine Lvl (test code = Creatinine 0.8 0.5-1.4 Lvl) [facility]2015-08-13 20:02:00 Test Item Value Reference Range Interpretation Comments Total Protein (test code = Total 8.2 6.4-8.4 Protein) [facility]2015-08-13 20:02:00 Test Item Value Reference Range Interpretation Comments AST (test code = AST) 17 See_Comment [Auto mated message] The system which ge nerated this result transmit kuldip reference range : <=37. The reference range was not used to interpr et this result as abiodun l/abnormal. [facility]2015-08-13 20:02:00 Test Item Value Reference Range Interpretation Comments Globulin (test code = Globulin) 5.0 2.0-4.0 [facility]2015-08-13 20:02:00 Test Item Value Reference Range Interpretation Comments A/G Ratio (test code = A/G Ratio) 0.6 0.7-1.6 [facility]2015-08-13 20:02:00 Test Item Value Reference Range Interpretation Comments B/C Ratio (test code = B/C Ratio) 9 6-25 [facility]2015-08-13 20:02:00 Test Item Value Reference Range Interpretation Comments AGAP (test code = AGAP) 10.5 10.0-20.0 [facility]2015-08-13 20:02:00 Test Item Value Reference Range Interpretation Comments Alk Phos (test code = Alk Phos) 83 39-136 [facility]2015-08-13 20:02:00 Test Item Value Reference Range Interpretation Comments Albumin Lvl (test code = Albumin Lvl) 3.2 3.5-5.0 [facility]2015-08-13 20:02:00 Test Item Value Reference Range Interpretation Comments ALT (test code = ALT) 18 See_Comment [Auto mated message] The system which ge nerated this result transmit kuldip reference range : <=65. The reference range was not used to interpr et this result as abiodun l/abnormal. [facility] CenterQtwmrjjGVJTCHQOHY8032-56-90 20:02:00 Test Item Value Reference Range Interpretation Comments PTT (test code = PTT) 29.7 s 22.9-35.8 [facility] CenterQdkzokoHIRFNHTUJY4796-03-94 20:02:00 Test Item Value Reference Range Interpretation Comments PT (test code = PT) 15.1 s 12.0-14.7 [facility] CenterKzubavkLSLALIYRML6431-05-39 20:02:00 Test Item Value Reference Range Interpretation Comments INR (test code = INR) 1.18 0.85-1.17 [facility] CenterObwnzrpPCEMAKWAWG2692-79-90 20:02:00 Test Item Value Reference Range Interpretation Comments WBC (test code = WBC) 5.0 3.7-10.4 [facility] CenterTbsreeoHFZIRYNIDY0791-76-57 20:02:00 Test Item Value Reference Range Interpretation Comments RBC (test code = RBC) 4.01 4.20-5.40 [facility] CenterKhlbvetDRZJFTLVBL1259-73-33 20:02:00 Test Item Value Reference Range Interpretation Comments Hgb (test code = Hgb) 8.2 12.0-16.0 [facility] CenterVknlssdETTNKCPRUE6092-83-16 20:02:00 Test Item Value Reference Range Interpretation Comments MPV (test code = MPV) 7.6 7.4-10.4 [facility] CenterLhutucwZHFDODSKPJ4889-74-77 20:02:00 Test Item Value Reference Range Interpretation Comments RDW (test code = RDW) 17.2 11.5-14.5 [facility] CenterPuhbvplUGPQXKUPUF8628-22-64 20:02:00 Test Item Value Reference Range Interpretation Comments Platelet (test code = Platelet) 281 133-450 [facility] CenterNkumeepVMSAJVKGXL8838-96-78 20:02:00 Test Item Value Reference Range Interpretation Comments MCH (test code = MCH) 20.4 pg 27.0-31.0 [facility] CenterOmifjgjSHJSIXFEVW3756-03-01 20:02:00 Test Item Value Reference Range Interpretation Comments MCHC (test code = MCHC) 29.8 32.0-36.0 [facility] CenterIqcyswgQDOMHODAXT7929-63-51 20:02:00 Test Item Value Reference Range Interpretation Comments MCV (test code = MCV) 68.4 80.0-98.0 [facility] CenterBweycneOOPATOZVOT7076-99-01 20:02:00 Test Item Value Reference Range Interpretation Comments Hct (test code = Hct) 27.4 36.0-48.0 [facility] CenterLzmbinaJKXAUVIMDV5909-88-69 20:02:00 Test Item Value Reference Range Interpretation Comments Segs (test code = Segs) 63.4 45.0-75.0 [facility] CenterYizdcazLYHNIUMAAW3647-44-85 20:02:00 Test Item Value Reference Range Interpretation Comments Hypochrom (test code = 1+ (11/05/14 3:02 PM) Hypochrom) [facility] CenterOfrjoazVATMSMBPKQ5201-86-61 20:02:00 Test Item Value Reference Range Interpretation Comments Monocytes (test code = Monocytes) 10.2 2.0-12.0 [facility] CenterBtvmolbBMINOEIODY5582-10-66 20:02:00 Test Item Value Reference Range Interpretation Comments Eosinophils (test code = 1.5 See_Comment [A utomated message] The Eosinophils) system which ge nerated this result tra nsmitted reference range : <=4.0. The reference r nilam was not used to int erpret this result as normal/abnormal . [facility] CenterHlgwbfxQYWHGTLGCR4502-61-71 20:02:00 Test Item Value Reference Range Interpretation Comments Basophils (test code = 0.3 See_Comment [Aut omated message] The Basophils) system which ge nerated this result tra nsmitted reference range : <=1.0. The reference r nilam was not used to int erpret this result as normal/abnormal . [facility] CenterUiwqtqgWUYQZAZSKK2043-09-30 20:02:00 Test Item Value Reference Range Interpretation Comments Lymphocytes (test code = Lymphocytes) 24.6 20.0-40.0 [facility] CenterFuyatcfSUDLNPKOKO9929-67-49 20:02:00 Test Item Value Reference Range Interpretation Comments Plt Morph (test code = Normal (11/05/14 3:02 Plt Morph) PM) [facility] CenterTysqrydAVLHAWOHVH8415-89-59 20:02:00 Test Item Value Reference Range Interpretation Comments RBC Morph (test code = See Note (11/05/14 3:02 RBC Morph) PM) [facility] CenterAnwdkwoOAWNRZQPLU8494-01-98 20:02:00 Test Item Value Reference Range Interpretation Comments Lymphocytes # (test code = Lymphocytes 1.2 1.0-5.5 #) [facility] CenterYopmaokEZQQIGYNEO3749-83-47 20:02:00 Test Item Value Reference Range Interpretation Comments Monocytes # (test code 0.5 See_Comment [Aut omated message] The = Monocytes #) system which generated this result tra nsmitted reference range : <=0.8. The reference r nilam was not used to int erpret this result as normal/abnormal . [facility] HospitalFwfdjlfWFJJEEOVGK3988-16-12 20:02:00 Test Item Value Reference Range Interpretation Comments Segs-Bands # (test code = Segs-Bands #) 3.2 1.5-8.1 [facility] HospitalFqglvncYLYCZCMXZY1351-77-45 20:02:00 Test Item Value Reference Range Interpretation Comments Microcyte (test code = 3+ *NA*(11/05/14 3:02 Microcyte) PM) [facility] HospitalIppoftgDYETGEQONU1633-09-18 20:02:00 Test Item Value Reference Range Interpretation Comments Eosinophils # (test code 0.1 See_Comment [A utomated message] The = Eosinophils #) system wh h generated this result tra nsmitted reference range : <=0.5. The reference r nilam was not used to int erpret this result as normal/abnormal . [facility]2015-08-13 20:02:00 Test Item Value Reference Range Interpretation Comments CK MB (test code = CK MB) no gt 0.5-3.6 [facility] HospitalW[facility] [employer] [facility]2015-08-13 20:02:00 Test Item Value Reference Range Interpretation Comments Troponin-I (test code no gt See_Comment [Auto mated message] The = Troponin-I) system which g enerated this result transmit kuldip reference range : <=0.40. The reference r nilam was not used to interpr et this result as abiodun l/abnormal. [facility]2015-08-13 20:02:00 Test Item Value Reference Range Interpretation Comments Total CK (test code = Total CK) 148 12-191 [facility] HospitalWikipixel [id number] 20:02:00 Test Item Value Reference Range Interpretation Comments CK MB Index (test no gt See_Comment [Automate d message] The code = CK MB Index) system w [facility] generated this result transmit kuldip reference range : <=2.5. The reference range was not used to interpr et this result as abiodun l/abnormal. [facility]2015-08-13 20:02:00 Test Item Value Reference Range Interpretation Comments eGFR (test code = eGFR) 104 [facility]2015-08-13 20:02:00 Test Item Value Reference Range Interpretation Comments CO2 (test code = CO2) 27 24-32 [place]35-08-13 20:02:00 Test Item Value Reference Range Interpretation Comments Calcium Lvl (test code = Calcium Lvl) 9.8 8.5-10.5 [facility]2015-08-13 20:02:00 Test Item Value Reference Range Interpretation Comments Bili Total (test code = Bili Total) 0.3 0.2-1.3 [facility]2015-08-13 20:02:00 Test Item Value Reference Range Interpretation Comments BUN (test code = BUN) 7 7-22 [facility]2015-08-13 20:02:00 Test Item Value Reference Range Interpretation Comments Glucose Lvl (test code = Glucose Lvl) 87 70-99 [facility]2015-08-13 20:02:00 Test Item Value Reference Range Interpretation Comments Sodium Lvl (test code = Sodium Lvl) 138 135-145 [facility]2015-08-13 20:02:00 Test Item Value Reference Range Interpretation Comments Chloride Lvl (test code = Chloride Lvl) 104 95-109 [facility]2015-08-13 20:02:00 Test Item Value Reference Range Interpretation Comments Potassium Lvl (test code = Potassium 3.5 3.5-5.1 Lvl) [facility]2015-08-13 20:02:00 Test Item Value Reference Range Interpretation Comments Creatinine Lvl (test code = Creatinine 0.8 0.5-1.4 Lvl) [facility]2015-08-13 20:02:00 Test Item Value Reference Range Interpretation Comments Total Protein (test code = Total 8.2 6.4-8.4 Protein) [facility]2015-08-13 20:02:00 Test Item Value Reference Range Interpretation Comments AST (test code = AST) 17 See_Comment [Auto mated message] The system which ge nerated this result transmit kuldip reference range : <=37. The reference range was not used to interpr et this result as abiodun l/abnormal. [facility]2015-08-13 20:02:00 Test Item Value Reference Range Interpretation Comments Globulin (test code = Globulin) 5.0 2.0-4.0 [facility]2015-08-13 20:02:00 Test Item Value Reference Range Interpretation Comments A/G Ratio (test code = A/G Ratio) 0.6 0.7-1.6 [facility]2015-08-13 20:02:00 Test Item Value Reference Range Interpretation Comments B/C Ratio (test code = B/C Ratio) 9 6-25 [facility]2015-08-13 20:02:00 Test Item Value Reference Range Interpretation Comments AGAP (test code = AGAP) 10.5 10.0-20.0 [facility]2015-08-13 20:02:00 Test Item Value Reference Range Interpretation Comments Alk Phos (test code = Alk Phos) 83 39-136 [facility]2015-08-13 20:02:00 Test Item Value Reference Range Interpretation Comments Albumin Lvl (test code = Albumin Lvl) 3.2 3.5-5.0 [facility]2015-08-13 20:02:00 Test Item Value Reference Range Interpretation Comments ALT (test code = ALT) 18 See_Comment [Auto mated message] The system which ge nerated this result transmit kuldip reference range : <=65. The reference range was not used to interpr et this result as abiodun l/abnormal. [id number] 20:02:00 Test Item Value Reference Range Interpretation Comments PTT (test code = PTT) 29.7 s 22.9-35.8 [facility] CenterDfwlljpUSCJXJOAKX2801-57-09 20:02:00 Test Item Value Reference Range Interpretation Comments PT (test code = PT) 15.1 s 12.0-14.7 [facility] CenterExvfbkfJSFWVQRGVJ6217-18-52 20:02:00 Test Item Value Reference Range Interpretation Comments INR (test code = INR) 1.18 0.85-1.17 [facility] CenterEfjubavATYZDIZIFC5842-52-58 20:02:00 Test Item Value Reference Range Interpretation Comments WBC (test code = WBC) 5.0 3.7-10.4 [facility] Cent[id number] 20:02:00 Test Item Value Reference Range Interpretation Comments RBC (test code = RBC) 4.01 4.20-5.40 [facility] CenterMaebkadMJRNIFQQWU1324-19-95 20:02:00 Test Item Value Reference Range Interpretation Comments Hgb (test code = Hgb) 8.2 12.0-16.0 [facility] CenterEpyywiyZYNAHAGKVT1907-05-64 20:02:00 Test Item Value Reference Range Interpretation Comments MPV (test code = MPV) 7.6 7.4-10.4 [facility] CenterZbarpshBLFRAJIXQB4337-67-78 20:02:00 Test Item Value Reference Range Interpretation Comments RDW (test code = RDW) 17.2 11.5-14.5 [facility] CenterQqyjuieBMWRWSDDWR1290-84-21 20:02:00 Test Item Value Reference Range Interpretation Comments Platelet (test code = Platelet) 281 133-450 [facility] CenterUnujarhISTMHSGOMW5104-22-93 20:02:00 Test Item Value Reference Range Interpretation Comments MCH (test code = MCH) 20.4 pg 27.0-31.0 [facility] CenterSslnwhnPIAMUPFMOT5133-06-36 20:02:00 Test Item Value Reference Range Interpretation Comments MCHC (test code = MCHC) 29.8 32.0-36.0 [facility] CenterHbvaexdJYZHJPEZZF2534-59-15 20:02:00 Test Item Value Reference Range Interpretation Comments MCV (test code = MCV) 68.4 80.0-98.0 [facility] CenterDrqxiluZSURUJLVCL9508-05-99 20:02:00 Test Item Value Reference Range Interpretation Comments Hct (test code = Hct) 27.4 36.0-48.0 [facility] CenterMbvycydWPDIXASBKI3222-70-09 20:02:00 Test Item Value Reference Range Interpretation Comments Segs (test code = Segs) 63.4 45.0-75.0 [facility] CenterZnaxrbaWVZSYBZNFE1125-55-85 20:02:00 Test Item Value Reference Range Interpretation Comments Hypochrom (test code = 1+ (11/05/14 3:02 PM) Hypochrom) [facility] CenterRkpqqjcPCYXWHHHOJ0116-19-35 20:02:00 Test Item Value Reference Range Interpretation Comments Monocytes (test code = Monocytes) 10.2 2.0-12.0 [facility] CenterAjkrwuyHCAALRHLKR8932-44-26 20:02:00 Test Item Value Reference Range Interpretation Comments Eosinophils (test code = 1.5 See_Comment [A utomated message] The Eosinophils) system which ge nerated this result tra nsmitted reference range : <=4.0. The reference r nilam was not used to int erpret this result as normal/abnormal . [facility] CenterBiajgbwNMWVZSFSTW1293-46-64 20:02:00 Test Item Value Reference Range Interpretation Comments Basophils (test code = 0.3 See_Comment [Aut omated message] The Basophils) system which ge nerated this result tra nsmitted reference range : <=1.0. The reference r nilam was not used to int erpret this result as normal/abnormal . [facility] CenterKbunvkeGCZSAQDPGE1920-81-53 20:02:00 Test Item Value Reference Range Interpretation Comments Lymphocytes (test code = Lymphocytes) 24.6 20.0-40.0 [facility] CenterVrsothcTXCGXJQTMW2441-93-45 20:02:00 Test Item Value Reference Range Interpretation Comments Plt Morph (test code = Normal (11/05/14 3:02 Plt Morph) PM) [facility] CenterXawaokeXEQVVKMVWH5021-99-13 20:02:00 Test Item Value Reference Range Interpretation Comments RBC Morph (test code = See Note (11/05/14 3:02 RBC Morph) PM) [facility] CenterOiqwaqlWOECNDVFKJ9949-50-81 20:02:00 Test Item Value Reference Range Interpretation Comments Lymphocytes # (test code = Lymphocytes 1.2 1.0-5.5 #) [facility] CenterFdkanhiXBANHALEEO3065-88-14 20:02:00 Test Item Value Reference Range Interpretation Comments Monocytes # (test code 0.5 See_Comment [Aut omated message] The = Monocytes #) system which generated this result tra nsmitted reference range : <=0.8. The reference r nilam was not used to int erpret this result as normal/abnormal . [facility] CenterDyfssseIMAWVUBWYJ2141-43-07 20:02:00 Test Item Value Reference Range Interpretation Comments Segs-Bands # (test code = Segs-Bands #) 3.2 1.5-8.1 [facility] CenterYfciixqDRVFDLZPYC3538-54-53 20:02:00 Test Item Value Reference Range Interpretation Comments Microcyte (test code = 3+ *NA*(11/05/14 3:02 Microcyte) PM) [facility] CenterWlolglhXDNKCTMBGX3338-88-69 20:02:00 Test Item Value Reference Range Interpretation Comments Eosinophils # (test code 0.1 See_Comment [A utomated message] The = Eosinophils #) system whic h generated this result tra nsmitted reference range : <=0.5. The reference r nilam was not used to int erpret this result as normal/abnormal . [facility] AND [id number] 18:07:00 Test Item Value Reference Range Interpretation Comments UA Leuk Est (test code Small *ABN*(11/03/14 = UA Leuk Est) 1:07 PM) [facility] AND [id number] 18:07:00 Test Item Value Reference Range Interpretation Comments UA Ketones (test code Negative *NA*(11/03/14 = UA Ketones) 1:07 PM) [facility] AND [id number] 18:07:00 Test Item Value Reference Range Interpretation Comments UA Turbidity (test code Cloudy *ABN*(11/03/14 = UA Turbidity) 1:07 PM) [facility] AND [id number] 18:07:00 Test Item Value Reference Range Interpretation Comments UA Spec Grav (test code = UA Spec 1.010 1 Grav) [facility] AND [id number] 18:07:00 Test Item Value Reference Range Interpretation Comments UA Protein (test code = Trace *ABN*(11/03/14 UA Protein) 1:07 PM) [facility] AND [id number] 18:07:00 Test Item Value Reference Range Interpretation Comments UA pH (test code = UA pH) 7.5 1 5.0-8.0 [facility] AND [id number] 18:07:00 Test Item Value Reference Range Interpretation Comments UA Color (test code = Yellow *NA*(11/03/14 UA Color) 1:07 PM) [facility] AND [id number] 18:07:00 Test Item Value Reference Range Interpretation Comments UA Glucose (test code Negative (11/03/14 1:07 = UA Glucose) PM) [facility] AND [id number] 18:07:00 Test Item Value Reference Range Interpretation Comments UA Blood (test code = Negative (11/03/14 1:07 UA Blood) PM) [facility] [id number] 18:07:00 Test Item Value Reference Range Interpretation Comments UA Bili (test code = Negative *NA*(11/03/14 UA Bili) 1:07 PM) [facility] [id number] 18:07:00 Test Item Value Reference Range Interpretation Comments UA Urobilinogen (test code = UA 1.0 0.1-1.0 Urobilinogen) [facility] [id number] 18:07:00 Test Item Value Reference Range Interpretation Comments UA Nitrite (test code Negative (11/03/14 1:07 = UA Nitrite) PM) [facility] [id number] 18:07:00 Test Item Value Reference Range Interpretation Comments UA RBC (test code = 0-2 /HPF See_Comment [Automa kuldip message] The UA RBC) system which ge nerated this result tra nsmitted reference range : <=2. The reference range was not used to interpr et this result as abiodun l/abnormal. [facility] AND [id number] 18:07:00 Test Item Value Reference Range Interpretation Comments UA WBC (test code = UA WBC) 11-20 /HPF [facility] AND [id number] 18:07:00 Test Item Value Reference Range Interpretation Comments UA Sq Epi (test code = UA Sq Epi) Few /LPF [facility] AND [id number] 18:07:00 Test Item Value Reference Range Interpretation Comments UA Bacteria (test code = UA Many /HPF Bacteria) [facility] [id number] 18:07:00 Test Item Value Reference Range Interpretation Comments U Preg (test code = U Negative (11/03/14 1:07 Preg) PM) [facility] [id number] 18:07:00 Test Item Value Reference Range Interpretation Comments UA Leuk Est (test code Small *ABN*(11/03/14 = UA Leuk Est) 1:07 PM) [facility] [id number] 18:07:00 Test Item Value Reference Range Interpretation Comments UA Ketones (test code Negative *NA*(11/03/14 = UA Ketones) 1:07 PM) [facility] [id number] 18:07:00 Test Item Value Reference Range Interpretation Comments UA Turbidity (test code Cloudy *ABN*(11/03/14 = UA Turbidity) 1:07 PM) [facility] AND [id number] 18:07:00 Test Item Value Reference Range Interpretation Comments UA Spec Grav (test code = UA Spec 1.010 1 Grav) [facility] AND [id number] 18:07:00 Test Item Value Reference Range Interpretation Comments UA Protein (test code = Trace *ABN*(11/03/14 UA Protein) 1:07 PM) [facility] AND [id number] 18:07:00 Test Item Value Reference Range Interpretation Comments UA pH (test code = UA pH) 7.5 1 5.0-8.0 [facility] AND [id number] 18:07:00 Test Item Value Reference Range Interpretation Comments UA Color (test code = Yellow *NA*(11/03/14 UA Color) 1:07 PM) [facility] AND [id number] 18:07:00 Test Item Value Reference Range Interpretation Comments UA Glucose (test code Negative (11/03/14 1:07 = UA Glucose) PM) [facility] AND [id number] 18:07:00 Test Item Value Reference Range Interpretation Comments UA Blood (test code = Negative (11/03/14 1:07 UA Blood) PM) [facility] AND [id number] 18:07:00 Test Item Value Reference Range Interpretation Comments UA Bili (test code = Negative *NA*(11/03/14 UA Bili) 1:07 PM) [facility] AND [id number] 18:07:00 Test Item Value Reference Range Interpretation Comments UA Urobilinogen (test code = UA 1.0 0.1-1.0 Urobilinogen) [facility] AND [id number] 18:07:00 Test Item Value Reference Range Interpretation Comments UA Nitrite (test code Negative (11/03/14 1:07 = UA Nitrite) PM) [facility] AND [id number] 18:07:00 Test Item Value Reference Range Interpretation Comments UA RBC (test code = 0-2 /HPF See_Comment [Automa kuldip message] The UA RBC) system which ge nerated this result tra nsmitted reference range : <=2. The reference range was not used to interpr et this result as abiodun l/abnormal. [facility] [id number] 18:07:00 Test Item Value Reference Range Interpretation Comments UA WBC (test code = UA WBC) 11-20 /HPF [facility] [id number] 18:07:00 Test Item Value Reference Range Interpretation Comments UA Sq Epi (test code = UA Sq Epi) Few /LPF [facility] [id number] 18:07:00 Test Item Value Reference Range Interpretation Comments UA Bacteria (test code = UA Many /HPF Bacteria) [facility] [id number] 18:07:00 Test Item Value Reference Range Interpretation Comments U Preg (test code = U Negative (11/03/14 1:07 Preg) PM) [facility] AND [id number] 18:07:00 Test Item Value Reference Range Interpretation Comments UA Leuk Est (test code Small *ABN*(11/03/14 = UA Leuk Est) 1:07 PM) [facility] AND [id number] 18:07:00 Test Item Value Reference Range Interpretation Comments UA Ketones (test code Negative *NA*(11/03/14 = UA Ketones) 1:07 PM) [facility] [id number] 18:07:00 Test Item Value Reference Range Interpretation Comments UA Turbidity (test code Cloudy *ABN*(11/03/14 = UA Turbidity) 1:07 PM) [facility] AND [id number] 18:07:00 Test Item Value Reference Range Interpretation Comments UA Spec Grav (test code = UA Spec 1.010 1 Grav) [facility] [id number] 18:07:00 Test Item Value Reference Range Interpretation Comments UA Protein (test code = Trace *ABN*(11/03/14 UA Protein) 1:07 PM) [facility] [id number] 18:07:00 Test Item Value Reference Range Interpretation Comments UA pH (test code = UA pH) 7.5 1 5.0-8.0 [facility] AND [id number] 18:07:00 Test Item Value Reference Range Interpretation Comments UA Color (test code = Yellow *NA*(11/03/14 UA Color) 1:07 PM) [facility] [id number] 18:07:00 Test Item Value Reference Range Interpretation Comments UA Glucose (test code Negative (11/03/14 1:07 = UA Glucose) PM) [facility] [id number] 18:07:00 Test Item Value Reference Range Interpretation Comments UA Blood (test code = Negative (11/03/14 1:07 UA Blood) PM) [facility] [id number] 18:07:00 Test Item Value Reference Range Interpretation Comments UA Bili (test code = Negative *NA*(11/03/14 UA Bili) 1:07 PM) [facility] [id number] 18:07:00 Test Item Value Reference Range Interpretation Comments UA Urobilinogen (test code = UA 1.0 0.1-1.0 Urobilinogen) [facility] AND [id number] 18:07:00 Test Item Value Reference Range Interpretation Comments UA Nitrite (test code Negative (11/03/14 1:07 = UA Nitrite) PM) [facility] [id number] 18:07:00 Test Item Value Reference Range Interpretation Comments UA RBC (test code = 0-2 /HPF See_Comment [Automa kuldip message] The UA RBC) system which ge nerated this result tra nsmitted reference range : <=2. The reference range was not used to interpr et this result as abiodun l/abnormal. [facility] AND [id number] 18:07:00 Test Item Value Reference Range Interpretation Comments UA WBC (test code = UA WBC) 11-20 /HPF [facility] AND [id number] 18:07:00 Test Item Value Reference Range Interpretation Comments UA Sq Epi (test code = UA Sq Epi) Few /LPF [facility] AND [id number] 18:07:00 Test Item Value Reference Range Interpretation Comments UA Bacteria (test code = UA Many /HPF Bacteria) [facility] [id number] 18:07:00 Test Item Value Reference Range Interpretation Comments U Preg (test code = U Negative (11/03/14 1:07 Preg) PM) [facility] [id number] 18:07:00 Test Item Value Reference Range Interpretation Comments UA Leuk Est (test code Small *ABN*(11/03/14 = UA Leuk Est) 1:07 PM) [facility] AND [id number] 18:07:00 Test Item Value Reference Range Interpretation Comments UA Ketones (test code Negative *NA*(11/03/14 = UA Ketones) 1:07 PM) [facility] AND [id number] 18:07:00 Test Item Value Reference Range Interpretation Comments UA Turbidity (test code Cloudy *ABN*(11/03/14 = UA Turbidity) 1:07 PM) [facility] AND [id number] 18:07:00 Test Item Value Reference Range Interpretation Comments UA Spec Grav (test code = UA Spec 1.010 1 Grav) [facility] AND [id number] 18:07:00 Test Item Value Reference Range Interpretation Comments UA Protein (test code = Trace *ABN*(11/03/14 UA Protein) 1:07 PM) [facility] AND [id number] 18:07:00 Test Item Value Reference Range Interpretation Comments UA pH (test code = UA pH) 7.5 1 5.0-8.0 [facility] AND [id number] 18:07:00 Test Item Value Reference Range Interpretation Comments UA Color (test code = Yellow *NA*(11/03/14 UA Color) 1:07 PM) [facility] AND [id number] 18:07:00 Test Item Value Reference Range Interpretation Comments UA Glucose (test code Negative (11/03/14 1:07 = UA Glucose) PM) [facility] AND [id number] 18:07:00 Test Item Value Reference Range Interpretation Comments UA Blood (test code = Negative (11/03/14 1:07 UA Blood) PM) [facility] AND [id number] 18:07:00 Test Item Value Reference Range Interpretation Comments UA Bili (test code = Negative *NA*(11/03/14 UA Bili) 1:07 PM) [facility] AND [id number] 18:07:00 Test Item Value Reference Range Interpretation Comments UA Urobilinogen (test code = UA 1.0 0.1-1.0 Urobilinogen) [facility] [id number] 18:07:00 Test Item Value Reference Range Interpretation Comments UA Nitrite (test code Negative (11/03/14 1:07 = UA Nitrite) PM) [facility] [id number] 18:07:00 Test Item Value Reference Range Interpretation Comments UA RBC (test code = 0-2 /HPF See_Comment [Automa kuldip message] The UA RBC) system which ge nerated this result tra nsmitted reference range : <=2. The reference range was not used to interpr et this result as abiodun l/abnormal. [facility] AND [id number] 18:07:00 Test Item Value Reference Range Interpretation Comments UA WBC (test code = UA WBC) 11-20 /HPF [facility] AND [id number] 18:07:00 Test Item Value Reference Range Interpretation Comments UA Sq Epi (test code = UA Sq Epi) Few /LPF [facility] AND [id number] 18:07:00 Test Item Value Reference Range Interpretation Comments UA Bacteria (test code = UA Many /HPF Bacteria) [facility] [id number] 18:07:00 Test Item Value Reference Range Interpretation Comments U Preg (test code = U Negative (11/03/14 1:07 Preg) PM) [facility] AND [id number] 18:07:00 Test Item Value Reference Range Interpretation Comments UA Leuk Est (test code Small *ABN*(11/03/14 = UA Leuk Est) 1:07 PM) [facility] AND [id number] 18:07:00 Test Item Value Reference Range Interpretation Comments UA Ketones (test code Negative *NA*(11/03/14 = UA Ketones) 1:07 PM) [facility] AND [id number] 18:07:00 Test Item Value Reference Range Interpretation Comments UA Turbidity (test code Cloudy *ABN*(11/03/14 = UA Turbidity) 1:07 PM) [facility] AND [id number] 18:07:00 Test Item Value Reference Range Interpretation Comments UA Spec Grav (test code = UA Spec 1.010 1 Grav) [facility] AND [id number] 18:07:00 Test Item Value Reference Range Interpretation Comments UA Protein (test code = Trace *ABN*(11/03/14 UA Protein) 1:07 PM) [facility] AND [id number] 18:07:00 Test Item Value Reference Range Interpretation Comments UA pH (test code = UA pH) 7.5 1 5.0-8.0 [facility] AND [id number] 18:07:00 Test Item Value Reference Range Interpretation Comments UA Color (test code = Yellow *NA*(11/03/14 UA Color) 1:07 PM) [facility] AND [id number] 18:07:00 Test Item Value Reference Range Interpretation Comments UA Glucose (test code Negative (11/03/14 1:07 = UA Glucose) PM) [facility] AND [id number] 18:07:00 Test Item Value Reference Range Interpretation Comments UA Blood (test code = Negative (11/03/14 1:07 UA Blood) PM) [facility] AND [id number] 18:07:00 Test Item Value Reference Range Interpretation Comments UA Bili (test code = Negative *NA*(11/03/14 UA Bili) 1:07 PM) [facility] AND [id number] 18:07:00 Test Item Value Reference Range Interpretation Comments UA Urobilinogen (test code = UA 1.0 0.1-1.0 Urobilinogen) [facility] AND [id number] 18:07:00 Test Item Value Reference Range Interpretation Comments UA Nitrite (test code Negative (11/03/14 1:07 = UA Nitrite) PM) [facility] AND [id number] 18:07:00 Test Item Value Reference Range Interpretation Comments UA RBC (test code = 0-2 /HPF See_Comment [Automa kuldip message] The UA RBC) system which ge nerated this result tra nsmitted reference range : <=2. The reference range was not used to interpr et this result as abiodun l/abnormal. [facility] AND [id number] 18:07:00 Test Item Value Reference Range Interpretation Comments UA WBC (test code = UA WBC) 11-20 /HPF [facility] AND [id number] 18:07:00 Test Item Value Reference Range Interpretation Comments UA Sq Epi (test code = UA Sq Epi) Few /LPF [facility] AND [id number] 18:07:00 Test Item Value Reference Range Interpretation Comments UA Bacteria (test code = UA Many /HPF Bacteria) [facility] ArthurURINE [id number] 18:07:00 Test Item Value Reference Range Interpretation Comments U Preg (test code = U Negative (11/03/14 1:07 Preg) PM) [facility] [id number] 16:45:00 Test Item Value Reference Range Interpretation Comments Troponin-I (test code no gt See_Comment [Auto mated message] The = Troponin-I) system which g enerated this result transmit kuldip reference range : <=0.40. The reference r nilam was not used to interpr et this result as abiodun l/abnormal. [facility] HospitalstevieNew [place] DesignsCOM[facility] [id number] 16:45:00 Test Item Value Reference Range Interpretation Comments Troponin-I (test code no gt See_Comment [Auto mated message] The = Troponin-I) system which g enerated this result transmit kuldip reference range : <=0.40. The reference r nilam was not used to interpr et this result as abiodun l/abnormal. [facility] HospitalstevieHealint [id number] 16:45:00 Test Item Value Reference Range Interpretation Comments Troponin-I (test code no gt See_Comment [Auto mated message] The = Troponin-I) system which g enerated this result transmit kuldip reference range : <=0.40. The reference r nilam was not used to interpr et this result as abiodun l/abnormal. [facility] [id number] 16:45:00 Test Item Value Reference Range Interpretation Comments Troponin-I (test code no gt See_Comment [Auto mated message] The = Troponin-I) system which g enerated this result transmit kuldip reference range : <=0.40. The reference r nilam was not used to interpr et this result as abiodun l/abnormal. [facility] [id number] 16:45:00 Test Item Value Reference Range Interpretation Comments Troponin-I (test code no gt See_Comment [Auto mated message] The = Troponin-I) system which g enerated this result transmit kuldip reference range : <=0.40. The reference r nilam was not used to interpr et this result as abiodun l/abnormal. [facility] [id number] 14:00:00 Test Item Value Reference Range Interpretation Comments Troponin-I (test code no gt See_Comment [Auto mated message] The = Troponin-I) system which g enerated this result transmit kuldip reference range : <=0.40. The reference r nilam was not used to interpr et this result as abiodun l/abnormal. [facility] CompaniesCARNativeADAC [id number] 14:00:00 Test Item Value Reference Range Interpretation Comments Total CK (test code = Total CK) 196 12-191 [facility] [employer]annHealintAC [id number] 14:00:00 Test Item Value Reference Range Interpretation Comments CK MB (test code = CK MB) 0.5 0.5-3.6 [facility] [employer]annHealintAC [id number] 14:00:00 Test Item Value Reference Range Interpretation Comments proBNP (test code = 18 See_Comment [Automa kuldip message] The proBNP) system which ge nerated this result tra nsmitted reference range : <=125. The reference r nilam was not used to int erpret this result as abiodun l/abnormal. [facility] [employer] [id number] 14:00:00 Test Item Value Reference Range Interpretation Comments CK MB Index (test 0.3 See_Comment [Automate d message] The code = CK MB Index) system w [facility] generated this result transmit kuldip reference range : <=2.5. The reference range was not used to interpr et this result as abiodun l/abnormal. [facility] [employer] [id number] 14:00:00 Test Item Value Reference Range Interpretation Comments eGFR (test code = eGFR) 111 [facility] [employer] [id number] 14:00:00 Test Item Value Reference Range Interpretation Comments Chloride Lvl (test code = Chloride Lvl) 103 95-109 [facility] [employer] [id number] 14:00:00 Test Item Value Reference Range Interpretation Comments BUN (test code = BUN) 6 7-22 [facility] [employer] [id number] 14:00:00 Test Item Value Reference Range Interpretation Comments Creatinine Lvl (test code = Creatinine 0.8 0.5-1.4 Lvl) [facility]2015-08-11 14:00:00 Test Item Value Reference Range Interpretation Comments Sodium Lvl (test code = Sodium Lvl) 138 135-145 [facility]2015-08-11 14:00:00 Test Item Value Reference Range Interpretation Comments Potassium Lvl (test code = Potassium 3.7 3.5-5.1 Lvl) [facility]2015-08-11 14:00:00 Test Item Value Reference Range Interpretation Comments Calcium Lvl (test code = Calcium Lvl) 9.5 8.5-10.5 [facility]2015-08-11 14:00:00 Test Item Value Reference Range Interpretation Comments Total Protein (test code = Total 8.2 6.4-8.4 Protein) [facility]2015-08-11 14:00:00 Test Item Value Reference Range Interpretation Comments CO2 (test code = CO2) 28 24-32 [facility]2015-08-11 14:00:00 Test Item Value Reference Range Interpretation Comments Bili Total (test code = Bili Total) 0.5 0.2-1.3 [facility]2015-08-11 14:00:00 Test Item Value Reference Range Interpretation Comments AGAP (test code = AGAP) 10.7 10.0-20.0 [facility]2015-08-11 14:00:00 Test Item Value Reference Range Interpretation Comments B/C Ratio (test code = B/C Ratio) 8 6-25 [facility]2015-08-11 14:00:00 Test Item Value Reference Range Interpretation Comments Globulin (test code = Globulin) 5.0 2.0-4.0 [facility]2015-08-11 14:00:00 Test Item Value Reference Range Interpretation Comments A/G Ratio (test code = A/G Ratio) 0.6 0.7-1.6 [facility]2015-08-11 14:00:00 Test Item Value Reference Range Interpretation Comments AST (test code = AST) 16 See_Comment [Auto mated message] The system which ge nerated this result transmit kuldip reference range : <=37. The reference range was not used to interpr et this result as abiodun l/abnormal. [facility]2015-08-11 14:00:00 Test Item Value Reference Range Interpretation Comments Glucose Lvl (test code = Glucose Lvl) 88 70-99 [facility]2015-08-11 14:00:00 Test Item Value Reference Range Interpretation Comments ALT (test code = ALT) 20 See_Comment [Auto mated message] The system which ge nerated this result transmit kuldip reference range : <=65. The reference range was not used to interpr et this result as abiodun l/abnormal. [facility]2015-08-11 14:00:00 Test Item Value Reference Range Interpretation Comments Albumin Lvl (test code = Albumin Lvl) 3.2 3.5-5.0 [facility]2015-08-11 14:00:00 Test Item Value Reference Range Interpretation Comments Alk Phos (test code = Alk Phos) 85 39-136 [facility] Cent[id number] 14:00:00 Test Item Value Reference Range Interpretation Comments Basophils (test code = 0.8 See_Comment [Aut omated message] The Basophils) system which ge nerated this result tra nsmitted reference range : <=1.0. The reference r nilam was not used to int erpret this result as normal/abnormal . [facility] CenterRkorgpgBKBZXGQGGZ9794-61-85 14:00:00 Test Item Value Reference Range Interpretation Comments Lymphocytes # (test code = Lymphocytes 1.3 1.0-5.5 #) [facility] CenterIxgxbtsLETJFAZGPJ8847-85-14 14:00:00 Test Item Value Reference Range Interpretation Comments Segs-Bands # (test code = Segs-Bands #) 2.4 1.5-8.1 [facility] CenterCnrktycUBCCKVRIBM8888-17-89 14:00:00 Test Item Value Reference Range Interpretation Comments Monocytes # (test code 0.4 See_Comment [Aut omated message] The = Monocytes #) system which generated this result tra nsmitted reference range : <=0.8. The reference r nilam was not used to int erpret this result as normal/abnormal . [facility] CenterLyilzscXZOXGQBGLQ0830-22-81 14:00:00 Test Item Value Reference Range Interpretation Comments Microcyte (test code = 3+ *NA*(11/03/14 9:00 Microcyte) AM) [facility] CenterDqyqmxjPNPDWGBMFA9707-78-30 14:00:00 Test Item Value Reference Range Interpretation Comments Eosinophils # (test code 0.1 See_Comment [A utomated message] The = Eosinophils #) system whic h generated this result tra nsmitted reference range : <=0.5. The reference r nilam was not used to int erpret this result as normal/abnormal . [facility] CenterTcwjmjzUEJXGRQUQE2660-72-42 14:00:00 Test Item Value Reference Range Interpretation Comments Segs (test code = Segs) 57.0 45.0-75.0 [facility] CenterZhpkohjFCIEVUSWLP6686-24-06 14:00:00 Test Item Value Reference Range Interpretation Comments Lymphocytes (test code = Lymphocytes) 30.7 20.0-40.0 [facility] CenterScnvczsFBTFNAQZMU9058-45-93 14:00:00 Test Item Value Reference Range Interpretation Comments Eosinophils (test code = 1.7 See_Comment [A utomated message] The Eosinophils) system which ge nerated this result tra nsmitted reference range : <=4.0. The reference r nilam was not used to int erpret this result as normal/abnormal . [facility] CenterOrddiqoYHRUYARUIT6014-58-26 14:00:00 Test Item Value Reference Range Interpretation Comments Monocytes (test code = Monocytes) 9.8 2.0-12.0 [facility] CenterGbzlosuXDCVVIAIKM3360-46-05 14:00:00 Test Item Value Reference Range Interpretation Comments Plt Morph (test code = Normal (11/03/14 9:00 Plt Morph) AM) [facility] CenterLrijolyWHOGRORKAT3105-14-04 14:00:00 Test Item Value Reference Range Interpretation Comments MPV (test code = MPV) 7.6 7.4-10.4 [facility] CenterVqquxraCVXKDTJCOB8887-32-18 14:00:00 Test Item Value Reference Range Interpretation Comments Platelet (test code = Platelet) 259 133-450 [facility] CenterCkujitfFKJAVEXCBC7642-40-19 14:00:00 Test Item Value Reference Range Interpretation Comments MCH (test code = MCH) 20.5 pg 27.0-31.0 [facility] CenterZqssdryMPOFMWLOLW7111-10-92 14:00:00 Test Item Value Reference Range Interpretation Comments MCHC (test code = MCHC) 30.3 32.0-36.0 [facility] CenterIypfbdaNFGGDJGYSG7700-83-26 14:00:00 Test Item Value Reference Range Interpretation Comments RDW (test code = RDW) 17.4 11.5-14.5 [facility]klswrtDIROCPYEUG6194-61-26 14:00:00 Test Item Value Reference Range Interpretation Comments Hgb (test code = Hgb) 8.1 12.0-16.0 [facility] CenterDmfnliiGRRVVZTDGI7164-45-85 14:00:00 Test Item Value Reference Range Interpretation Comments Hct (test code = Hct) 26.7 36.0-48.0 [facility] CenterFuqkfmySIYGPAXBUB3808-16-88 14:00:00 Test Item Value Reference Range Interpretation Comments MCV (test code = MCV) 67.6 80.0-98.0 [facility] CenterKafbweeLUAIWRZAHH8535-60-29 14:00:00 Test Item Value Reference Range Interpretation Comments RBC (test code = RBC) 3.95 4.20-5.40 [facility] CenterSmemfybALMVPUNBWJ4467-19-44 14:00:00 Test Item Value Reference Range Interpretation Comments WBC (test code = WBC) 4.2 3.7-10.4 [facility] CenterOqwlimoNRBFRXLHTX0849-40-89 14:00:00 Test Item Value Reference Range Interpretation Comments D-Dimer (test code = D-Dimer) 0.27 [facility] [id number] 14:00:00 Test Item Value Reference Range Interpretation Comments Troponin-I (test code no gt See_Comment [Auto mated message] The = Troponin-I) system which g enerated this result transmit kuldip reference range : <=0.40. The reference r nilam was not used to interpr et this result as abiodun l/abnormal. [facility]inteCARDIAC [id number] 14:00:00 Test Item Value Reference Range Interpretation Comments Total CK (test code = Total CK) 196 12-191 [facility] [id number] 14:00:00 Test Item Value Reference Range Interpretation Comments CK MB (test code = CK MB) 0.5 0.5-3.6 [facility] [id number] 14:00:00 Test Item Value Reference Range Interpretation Comments proBNP (test code = 18 See_Comment [Automa kuldip message] The proBNP) system which ge nerated this result tra nsmitted reference range : <=125. The reference r nilam was not used to int erpret this result as abiodun l/abnormal. [facility]inte[facility]ARD[facility] [id number] 14:00:00 Test Item Value Reference Range Interpretation Comments CK MB Index (test 0.3 See_Comment [Automate d message] The code = CK MB Index) system w [facility] generated this result transmit kuldip reference range : <=2.5. The reference range was not used to interpr et this result as abiodun l/abnormal. [facility]inteTell[facility] Technology [id number] 14:00:00 Test Item Value Reference Range Interpretation Comments eGFR (test code = eGFR) 111 [facility]2015-08-11 14:00:00 Test Item Value Reference Range Interpretation Comments Chloride Lvl (test code = Chloride Lvl) 103 95-109 [facility]2015-08-11 14:00:00 Test Item Value Reference Range Interpretation Comments BUN (test code = BUN) 6 7-22 [facility]2015-08-11 14:00:00 Test Item Value Reference Range Interpretation Comments Creatinine Lvl (test code = Creatinine 0.8 0.5-1.4 Lvl) [facility]2015-08-11 14:00:00 Test Item Value Reference Range Interpretation Comments Sodium Lvl (test code = Sodium Lvl) 138 135-145 [facility]inteTell[facility] [id number] 14:00:00 Test Item Value Reference Range Interpretation Comments Potassium Lvl (test code = Potassium 3.7 3.5-5.1 Lvl) [facility]2015-08-11 14:00:00 Test Item Value Reference Range Interpretation Comments Calcium Lvl (test code = Calcium Lvl) 9.5 8.5-10.5 [facility]inte[facility] [id number] 14:00:00 Test Item Value Reference Range Interpretation Comments Total Protein (test code = Total 8.2 6.4-8.4 Protein) [facility]2015-08-11 14:00:00 Test Item Value Reference Range Interpretation Comments CO2 (test code = CO2) 28 24-32 [facility]2015-08-11 14:00:00 Test Item Value Reference Range Interpretation Comments Bili Total (test code = Bili Total) 0.5 0.2-1.3 [facility] HospitalannAN[facility] COMMUN[facility] [id number] 14:00:00 Test Item Value Reference Range Interpretation Comments AGAP (test code = AGAP) 10.7 10.0-20.0 [facility]2015-08-11 14:00:00 Test Item Value Reference Range Interpretation Comments B/C Ratio (test code = B/C Ratio) 8 6-25 [facility]2015-08-11 14:00:00 Test Item Value Reference Range Interpretation Comments Globulin (test code = Globulin) 5.0 2.0-4.0 [facility]2015-08-11 14:00:00 Test Item Value Reference Range Interpretation Comments A/G Ratio (test code = A/G Ratio) 0.6 0.7-1.6 [facility]2015-08-11 14:00:00 Test Item Value Reference Range Interpretation Comments AST (test code = AST) 16 See_Comment [Auto mated message] The system which ge nerated this result transmit kuldip reference range : <=37. The reference range was not used to interpr et this result as abiodun l/abnormal. [facility]2015-08-11 14:00:00 Test Item Value Reference Range Interpretation Comments Glucose Lvl (test code = Glucose Lvl) 88 70-99 [facility]2015-08-11 14:00:00 Test Item Value Reference Range Interpretation Comments ALT (test code = ALT) 20 See_Comment [Auto mated message] The system which ge nerated this result transmit kuldip reference range : <=65. The reference range was not used to interpr et this result as abiodun l/abnormal. [facility]2015-08-11 14:00:00 Test Item Value Reference Range Interpretation Comments Albumin Lvl (test code = Albumin Lvl) 3.2 3.5-5.0 [facility]2015-08-11 14:00:00 Test Item Value Reference Range Interpretation Comments Alk Phos (test code = Alk Phos) 85 39-136 [facility] CenterRwvmsmyWCOEIFJPXH9833-69-67 14:00:00 Test Item Value Reference Range Interpretation Comments Basophils (test code = 0.8 See_Comment [Aut omated message] The Basophils) system which ge nerated this result tra nsmitted reference range : <=1.0. The reference r nilam was not used to int erpret this result as normal/abnormal . [facility] CenterYqchfljVPFTPFWTGG8993-57-96 14:00:00 Test Item Value Reference Range Interpretation Comments Lymphocytes # (test code = Lymphocytes 1.3 1.0-5.5 #) [facility] CenterTezpxhpTRFJXKXZUK7199-60-91 14:00:00 Test Item Value Reference Range Interpretation Comments Segs-Bands # (test code = Segs-Bands #) 2.4 1.5-8.1 [facility] CenterIvyvghjLDOVWXBRVD2782-87-65 14:00:00 Test Item Value Reference Range Interpretation Comments Monocytes # (test code 0.4 See_Comment [Aut omated message] The = Monocytes #) system which generated this result tra nsmitted reference range : <=0.8. The reference r nilam was not used to int erpret this result as normal/abnormal . [facility] CenterXgdmcryBBZTWEEXOH3842-58-56 14:00:00 Test Item Value Reference Range Interpretation Comments Microcyte (test code = 3+ *NA*(11/03/14 9:00 Microcyte) AM) [facility] CenterYxhczwyVXCYTFVBRX8438-32-01 14:00:00 Test Item Value Reference Range Interpretation Comments Eosinophils # (test code 0.1 See_Comment [A utomated message] The = Eosinophils #) system whic h generated this result tra nsmitted reference range : <=0.5. The reference r nilam was not used to int erpret this result as normal/abnormal . [facility] CenterRnjsqdrRHZCMCVBBX6722-84-72 14:00:00 Test Item Value Reference Range Interpretation Comments Segs (test code = Segs) 57.0 45.0-75.0 [facility] CenterFfddshlAYXOLJSZXS1801-79-50 14:00:00 Test Item Value Reference Range Interpretation Comments Lymphocytes (test code = Lymphocytes) 30.7 20.0-40.0 [facility] CenterBtvbfduIVPJWQTJLF8150-28-89 14:00:00 Test Item Value Reference Range Interpretation Comments Eosinophils (test code = 1.7 See_Comment [A utomated message] The Eosinophils) system which ge nerated this result tra nsmitted reference range : <=4.0. The reference r nilam was not used to int erpret this result as normal/abnormal . [facility] CenterAsftfofMKCQNLAAYO7093-22-16 14:00:00 Test Item Value Reference Range Interpretation Comments Monocytes (test code = Monocytes) 9.8 2.0-12.0 [facility] CenterDxksarzSMQGFZJMEG1567-14-86 14:00:00 Test Item Value Reference Range Interpretation Comments Plt Morph (test code = Normal (11/03/14 9:00 Plt Morph) AM) [facility] CenterWwxuegyEKDYMZHFRO5384-67-59 14:00:00 Test Item Value Reference Range Interpretation Comments MPV (test code = MPV) 7.6 7.4-10.4 [facility] CenterLokgwhgAKSMREPSDP8602-94-95 14:00:00 Test Item Value Reference Range Interpretation Comments Platelet (test code = Platelet) 259 133-450 [facility] CenterUaiuonfPTKEHDNAFB0115-59-19 14:00:00 Test Item Value Reference Range Interpretation Comments MCH (test code = MCH) 20.5 pg 27.0-31.0 [facility] CenterObiolhaJJRWNHHAAO5907-35-98 14:00:00 Test Item Value Reference Range Interpretation Comments MCHC (test code = MCHC) 30.3 32.0-36.0 [facility] CenterOrnapcvBLNLLAYKXE1820-31-09 14:00:00 Test Item Value Reference Range Interpretation Comments RDW (test code = RDW) 17.4 11.5-14.5 [facility] CenterHtdiyhlKFXESIDTGS0754-53-53 14:00:00 Test Item Value Reference Range Interpretation Comments Hgb (test code = Hgb) 8.1 12.0-16.0 [facility] CenterQvzzrbkHAYCMBJZMN0852-00-12 14:00:00 Test Item Value Reference Range Interpretation Comments Hct (test code = Hct) 26.7 36.0-48.0 [facility] CenterCrylvjzNPBUJNDEHE4533-44-90 14:00:00 Test Item Value Reference Range Interpretation Comments MCV (test code = MCV) 67.6 80.0-98.0 [facility] CenterIztpxgaYPRPDIKRKW5034-69-99 14:00:00 Test Item Value Reference Range Interpretation Comments RBC (test code = RBC) 3.95 4.20-5.40 [facility] CenterFqepepaGQOUFFJOOR5409-79-32 14:00:00 Test Item Value Reference Range Interpretation Comments WBC (test code = WBC) 4.2 3.7-10.4 [facility] CenterYqttjlmTNOVWYACLL9345-89-58 14:00:00 Test Item Value Reference Range Interpretation Comments D-Dimer (test code = D-Dimer) 0.27 [facility] PointeCARNativeADAC [id number] 14:00:00 Test Item Value Reference Range Interpretation Comments Troponin-I (test code no gt See_Comment [Auto mated message] The = Troponin-I) system which g enerated this result transmit kuldip reference range : <=0.40. The reference r nilam was not used to interpr et this result as abiodun l/abnormal. [facility] [employer] [id number] 14:00:00 Test Item Value Reference Range Interpretation Comments Total CK (test code = Total CK) 196 12-191 [facility] [employer] [id number] 14:00:00 Test Item Value Reference Range Interpretation Comments CK MB (test code = CK MB) 0.5 0.5-3.6 [facility] [employer] [id number] 14:00:00 Test Item Value Reference Range Interpretation Comments proBNP (test code = 18 See_Comment [Automa kuldip message] The proBNP) system which ge nerated this result tra nsmitted reference range : <=125. The reference r nilam was not used to int erpret this result as abiodun l/abnormal. [facility] [employer] [id number] 14:00:00 Test Item Value Reference Range Interpretation Comments CK MB Index (test 0.3 See_Comment [Automate d message] The code = CK MB Index) system w [facility] generated this result transmit kuldip reference range : <=2.5. The reference range was not used to interpr et this result as abiodun l/abnormal. [facility] [employer] [id number] 14:00:00 Test Item Value Reference Range Interpretation Comments eGFR (test code = eGFR) 111 [facility] [employer] [id number] 14:00:00 Test Item Value Reference Range Interpretation Comments Chloride Lvl (test code = Chloride Lvl) 103 95-109 [facility] [employer] [id number] 14:00:00 Test Item Value Reference Range Interpretation Comments BUN (test code = BUN) 6 7-22 [facility] [employer] [id number] 14:00:00 Test Item Value Reference Range Interpretation Comments Creatinine Lvl (test code = Creatinine 0.8 0.5-1.4 Lvl) [facility] [employer] [id number] 14:00:00 Test Item Value Reference Range Interpretation Comments Sodium Lvl (test code = Sodium Lvl) 138 135-145 [facility]2015-08-11 14:00:00 Test Item Value Reference Range Interpretation Comments Potassium Lvl (test code = Potassium 3.7 3.5-5.1 Lvl) [facility]2015-08-11 14:00:00 Test Item Value Reference Range Interpretation Comments Calcium Lvl (test code = Calcium Lvl) 9.5 8.5-10.5 [facility]2015-08-11 14:00:00 Test Item Value Reference Range Interpretation Comments Total Protein (test code = Total 8.2 6.4-8.4 Protein) [facility]2015-08-11 14:00:00 Test Item Value Reference Range Interpretation Comments CO2 (test code = CO2) 28 24-32 [facility]2015-08-11 14:00:00 Test Item Value Reference Range Interpretation Comments Bili Total (test code = Bili Total) 0.5 0.2-1.3 [facility]2015-08-11 14:00:00 Test Item Value Reference Range Interpretation Comments AGAP (test code = AGAP) 10.7 10.0-20.0 [facility]2015-08-11 14:00:00 Test Item Value Reference Range Interpretation Comments B/C Ratio (test code = B/C Ratio) 8 6-25 [facility]2015-08-11 14:00:00 Test Item Value Reference Range Interpretation Comments Globulin (test code = Globulin) 5.0 2.0-4.0 [facility]2015-08-11 14:00:00 Test Item Value Reference Range Interpretation Comments A/G Ratio (test code = A/G Ratio) 0.6 0.7-1.6 [facility]2015-08-11 14:00:00 Test Item Value Reference Range Interpretation Comments AST (test code = AST) 16 See_Comment [Auto mated message] The system which ge nerated this result transmit kuldip reference range : <=37. The reference range was not used to interpr et this result as abiodun l/abnormal. [facility]2015-08-11 14:00:00 Test Item Value Reference Range Interpretation Comments Glucose Lvl (test code = Glucose Lvl) 88 70-99 [facility]2015-08-11 14:00:00 Test Item Value Reference Range Interpretation Comments ALT (test code = ALT) 20 See_Comment [Auto mated message] The system which ge nerated this result transmit kuldip reference range : <=65. The reference range was not used to interpr et this result as abiodun l/abnormal. [facility]2015-08-11 14:00:00 Test Item Value Reference Range Interpretation Comments Albumin Lvl (test code = Albumin Lvl) 3.2 3.5-5.0 [facility]2015-08-11 14:00:00 Test Item Value Reference Range Interpretation Comments Alk Phos (test code = Alk Phos) 85 39-136 [facility]ZchzyauQCPIRNDPRX3023-83-73 14:00:00 Test Item Value Reference Range Interpretation Comments Basophils (test code = 0.8 See_Comment [Aut omated message] The Basophils) system which ge nerated this result tra nsmitted reference range : <=1.0. The reference r nilam was not used to int erpret this result as normal/abnormal . [facility] CenterDkcmwdeCDGLSFFWQP7396-67-95 14:00:00 Test Item Value Reference Range Interpretation Comments Lymphocytes # (test code = Lymphocytes 1.3 1.0-5.5 #) [facility] CenterOmezsjzWXGKEFLULQ2192-50-96 14:00:00 Test Item Value Reference Range Interpretation Comments Segs-Bands # (test code = Segs-Bands #) 2.4 1.5-8.1 [facility] CenterFvmmwbgFKMBYTHGFX3412-40-26 14:00:00 Test Item Value Reference Range Interpretation Comments Monocytes # (test code 0.4 See_Comment [Aut omated message] The = Monocytes #) system which generated this result tra nsmitted reference range : <=0.8. The reference r nilam was not used to int erpret this result as normal/abnormal . [facility] CenterZmjaoyaKMRLUYEKFH4459-45-30 14:00:00 Test Item Value Reference Range Interpretation Comments Microcyte (test code = 3+ *NA*(11/03/14 9:00 Microcyte) AM) [facility] CenterFdiarpyKOSIRHEDOT9205-28-73 14:00:00 Test Item Value Reference Range Interpretation Comments Eosinophils # (test code 0.1 See_Comment [A utomated message] The = Eosinophils #) system whic h generated this result tra nsmitted reference range : <=0.5. The reference r nilam was not used to int erpret this result as normal/abnormal . [facility] CenterTlgtiucBZHQMTILPY0550-42-30 14:00:00 Test Item Value Reference Range Interpretation Comments Segs (test code = Segs) 57.0 45.0-75.0 [facility] CenterBbroovhQNDSSHHDUW7570-16-71 14:00:00 Test Item Value Reference Range Interpretation Comments Lymphocytes (test code = Lymphocytes) 30.7 20.0-40.0 [facility] CenterTfscodpMTLLRVYIIA9591-53-80 14:00:00 Test Item Value Reference Range Interpretation Comments Eosinophils (test code = 1.7 See_Comment [A utomated message] The Eosinophils) system which ge nerated this result tra nsmitted reference range : <=4.0. The reference r nilam was not used to int erpret this result as normal/abnormal . [facility] CenterQqhdznqKLKAAHSXET5496-96-41 14:00:00 Test Item Value Reference Range Interpretation Comments Monocytes (test code = Monocytes) 9.8 2.0-12.0 [facility] CenterGmajyswDFNOFAVIHO1899-42-14 14:00:00 Test Item Value Reference Range Interpretation Comments Plt Morph (test code = Normal (11/03/14 9:00 Plt Morph) AM) [facility] CenterKfewzcnPYEEXJGAFB3288-76-97 14:00:00 Test Item Value Reference Range Interpretation Comments MPV (test code = MPV) 7.6 7.4-10.4 [facility] CenterSrntttuEHVODUYAUW8117-54-40 14:00:00 Test Item Value Reference Range Interpretation Comments Platelet (test code = Platelet) 259 133-450 [facility] CenterYaokptjBQFHMZIQUT5000-62-88 14:00:00 Test Item Value Reference Range Interpretation Comments MCH (test code = MCH) 20.5 pg 27.0-31.0 [facility] CenterVzykamsXDUQPLPUKA9213-64-92 14:00:00 Test Item Value Reference Range Interpretation Comments MCHC (test code = MCHC) 30.3 32.0-36.0 [facility] CenterExwujwtETBHRZMTAG6603-05-93 14:00:00 Test Item Value Reference Range Interpretation Comments RDW (test code = RDW) 17.4 11.5-14.5 [facility]pMQEUVXICHI6164-64-60 14:00:00 Test Item Value Reference Range Interpretation Comments Hgb (test code = Hgb) 8.1 12.0-16.0 [facility] HospitalGxtrdkwGNKAZTEZIE5416-06-62 14:00:00 Test Item Value Reference Range Interpretation Comments Hct (test code = Hct) 26.7 36.0-48.0 [facility] HospitalCtotafoKKSZEWULTP0826-68-97 14:00:00 Test Item Value Reference Range Interpretation Comments MCV (test code = MCV) 67.6 80.0-98.0 [facility] CenterFravgchTAMYTDPWPG7195-83-10 14:00:00 Test Item Value Reference Range Interpretation Comments RBC (test code = RBC) 3.95 4.20-5.40 [facility] HospitalWrjkdmfNSRGERLOKX7340-59-11 14:00:00 Test Item Value Reference Range Interpretation Comments WBC (test code = WBC) 4.2 3.7-10.4 [facility] HospitalGajhhflXYORPCOZHD7663-52-35 14:00:00 Test Item Value Reference Range Interpretation Comments D-Dimer (test code = D-Dimer) 0.27 [facility] PointeSiriusXM CanadaCJISDZO1019-19-21 14:00:00 Test Item Value Reference Range Interpretation Comments Troponin-I (test code no gt See_Comment [Auto mated message] The = Troponin-I) system which g enerated this result transmit kuldip reference range : <=0.40. The reference r nilam was not used to interpr et this result as abiodun l/abnormal. [facility] HospitalWikipixel ADHGMAP0314-21-85 14:00:00 Test Item Value Reference Range Interpretation Comments Total CK (test code = Total CK) 196 12-191 [facility] PointeWebrazzi MMQUJMR5812-47-93 14:00:00 Test Item Value Reference Range Interpretation Comments CK MB (test code = CK MB) 0.5 0.5-3.6 [facility] CenterV[facility] LNGBHBQ4769-18-37 14:00:00 Test Item Value Reference Range Interpretation Comments proBNP (test code = 18 See_Comment [Automa kuldip message] The proBNP) system which ge nerated this result tra nsmitted reference range : <=125. The reference r nilam was not used to int erpret this result as abiodun l/abnormal. [facility] [employer] [id number] 14:00:00 Test Item Value Reference Range Interpretation Comments CK MB Index (test 0.3 See_Comment [Automate d message] The code = CK MB Index) system w [employer] generated this result transmit kuldip reference range : <=2.5. The reference range was not used to interpr et this result as abiodun l/abnormal. [facility]2015-08-11 14:00:00 Test Item Value Reference Range Interpretation Comments eGFR (test code = eGFR) 111 [facility]2015-08-11 14:00:00 Test Item Value Reference Range Interpretation Comments Chloride Lvl (test code = Chloride Lvl) 103 95-109 [facility]2015-08-11 14:00:00 Test Item Value Reference Range Interpretation Comments BUN (test code = BUN) 6 7-22 [facility]2015-08-11 14:00:00 Test Item Value Reference Range Interpretation Comments Creatinine Lvl (test code = Creatinine 0.8 0.5-1.4 Lvl) [facility]2015-08-11 14:00:00 Test Item Value Reference Range Interpretation Comments Sodium Lvl (test code = Sodium Lvl) 138 135-145 [facility]2015-08-11 14:00:00 Test Item Value Reference Range Interpretation Comments Potassium Lvl (test code = Potassium 3.7 3.5-5.1 Lvl) [facility]2015-08-11 14:00:00 Test Item Value Reference Range Interpretation Comments Calcium Lvl (test code = Calcium Lvl) 9.5 8.5-10.5 [facility]2015-08-11 14:00:00 Test Item Value Reference Range Interpretation Comments Total Protein (test code = Total 8.2 6.4-8.4 Protein) [facility]2015-08-11 14:00:00 Test Item Value Reference Range Interpretation Comments CO2 (test code = CO2) 28 24-32 [facility]2015-08-11 14:00:00 Test Item Value Reference Range Interpretation Comments Bili Total (test code = Bili Total) 0.5 0.2-1.3 [facility]2015-08-11 14:00:00 Test Item Value Reference Range Interpretation Comments AGAP (test code = AGAP) 10.7 10.0-20.0 [facility]2015-08-11 14:00:00 Test Item Value Reference Range Interpretation Comments B/C Ratio (test code = B/C Ratio) 8 6-25 [facility]2015-08-11 14:00:00 Test Item Value Reference Range Interpretation Comments Globulin (test code = Globulin) 5.0 2.0-4.0 [place]35-08-11 14:00:00 Test Item Value Reference Range Interpretation Comments A/G Ratio (test code = A/G Ratio) 0.6 0.7-1.6 [facility]2015-08-11 14:00:00 Test Item Value Reference Range Interpretation Comments AST (test code = AST) 16 See_Comment [Auto mated message] The system which ge nerated this result transmit kuldip reference range : <=37. The reference range was not used to interpr et this result as abiodun l/abnormal. [facility]2015-08-11 14:00:00 Test Item Value Reference Range Interpretation Comments Glucose Lvl (test code = Glucose Lvl) 88 70-99 [facility]2015-08-11 14:00:00 Test Item Value Reference Range Interpretation Comments ALT (test code = ALT) 20 See_Comment [Auto mated message] The system which ge nerated this result transmit kuldip reference range : <=65. The reference range was not used to interpr et this result as abiodun l/abnormal. [facility]2015-08-11 14:00:00 Test Item Value Reference Range Interpretation Comments Albumin Lvl (test code = Albumin Lvl) 3.2 3.5-5.0 [facility]2015-08-11 14:00:00 Test Item Value Reference Range Interpretation Comments Alk Phos (test code = Alk Phos) 85 39-136 [facility] CenterMatruwzCXLVMFNUTY0922-29-54 14:00:00 Test Item Value Reference Range Interpretation Comments Basophils (test code = 0.8 See_Comment [Aut omated message] The Basophils) system which ge nerated this result tra nsmitted reference range : <=1.0. The reference r nilam was not used to int erpret this result as normal/abnormal . [facility] CenterItzppykTRALIKDQMC6994-48-48 14:00:00 Test Item Value Reference Range Interpretation Comments Lymphocytes # (test code = Lymphocytes 1.3 1.0-5.5 #) [facility] CenterJeaeeerTIGWIIHWZZ8066-08-32 14:00:00 Test Item Value Reference Range Interpretation Comments Segs-Bands # (test code = Segs-Bands #) 2.4 1.5-8.1 [facility] CenterFubuvteXVROIPJOEM2678-07-56 14:00:00 Test Item Value Reference Range Interpretation Comments Monocytes # (test code 0.4 See_Comment [Aut omated message] The = Monocytes #) system which generated this result tra nsmitted reference range : <=0.8. The reference r nilam was not used to int erpret this result as normal/abnormal . [facility] CenterLqjdcmvNXLYCNDEZO8859-06-18 14:00:00 Test Item Value Reference Range Interpretation Comments Microcyte (test code = 3+ *NA*(11/03/14 9:00 Microcyte) AM) [facility] CenterIcogwaxXBTOVJBUZH2968-73-48 14:00:00 Test Item Value Reference Range Interpretation Comments Eosinophils # (test code 0.1 See_Comment [A utomated message] The = Eosinophils #) system whic h generated this result tra nsmitted reference range : <=0.5. The reference r nilam was not used to int erpret this result as normal/abnormal . [facility] CenterAloiqhxRCXTYMJJXP4218-76-32 14:00:00 Test Item Value Reference Range Interpretation Comments Segs (test code = Segs) 57.0 45.0-75.0 [facility] CenterPknqrodMSXHRAYUCJ1050-50-52 14:00:00 Test Item Value Reference Range Interpretation Comments Lymphocytes (test code = Lymphocytes) 30.7 20.0-40.0 [facility] CenterIkamdrcPPGYHAQUWQ5500-65-46 14:00:00 Test Item Value Reference Range Interpretation Comments Eosinophils (test code = 1.7 See_Comment [A utomated message] The Eosinophils) system which ge nerated this result tra nsmitted reference range : <=4.0. The reference r nilam was not used to int erpret this result as normal/abnormal . [facility] CenterAvyiydaWYHXPECEUY4623-46-62 14:00:00 Test Item Value Reference Range Interpretation Comments Monocytes (test code = Monocytes) 9.8 2.0-12.0 [facility] CenterRunscpuRICTQABKFZ0458-41-36 14:00:00 Test Item Value Reference Range Interpretation Comments Plt Morph (test code = Normal (11/03/14 9:00 Plt Morph) AM) [facility] CenterHrsbiqyJPSOHNFMKR7766-37-76 14:00:00 Test Item Value Reference Range Interpretation Comments MPV (test code = MPV) 7.6 7.4-10.4 [facility] CenterQbpnoyhTTEXMDUOYQ1898-44-29 14:00:00 Test Item Value Reference Range Interpretation Comments Platelet (test code = Platelet) 259 133-450 [facility] CenterTjiuoloCNZEUDBEEY3722-15-88 14:00:00 Test Item Value Reference Range Interpretation Comments MCH (test code = MCH) 20.5 pg 27.0-31.0 [facility] CenterEafivgsENUTYHZEFG1722-95-33 14:00:00 Test Item Value Reference Range Interpretation Comments MCHC (test code = MCHC) 30.3 32.0-36.0 [facility] CenterHfzupnuIQZUIKEVIF1628-95-75 14:00:00 Test Item Value Reference Range Interpretation Comments RDW (test code = RDW) 17.4 11.5-14.5 [facility] CenterHhgcrbkEWNBSCTSUR0642-62-80 14:00:00 Test Item Value Reference Range Interpretation Comments Hgb (test code = Hgb) 8.1 12.0-16.0 [facility] CenterMchtfbxDRQKBZETNU0912-18-38 14:00:00 Test Item Value Reference Range Interpretation Comments Hct (test code = Hct) 26.7 36.0-48.0 [facility] CenterWvkzufrIEKMGXTXAJ7876-04-37 14:00:00 Test Item Value Reference Range Interpretation Comments MCV (test code = MCV) 67.6 80.0-98.0 [facility] CenterEpvhkhaPMZWHDGHBB3610-01-09 14:00:00 Test Item Value Reference Range Interpretation Comments RBC (test code = RBC) 3.95 4.20-5.40 [facility] CenterWqqnbvzINHUWZHUNH5835-30-86 14:00:00 Test Item Value Reference Range Interpretation Comments WBC (test code = WBC) 4.2 3.7-10.4 [facility] CenterEzvhhjyIWICXNTJKU2677-94-34 14:00:00 Test Item Value Reference Range Interpretation Comments D-Dimer (test code = D-Dimer) 0.27 [facility] PointeCARDIAC BLOEORC5587-92-30 14:00:00 Test Item Value Reference Range Interpretation Comments Troponin-I (test code no gt See_Comment [Auto mated message] The = Troponin-I) system which g enerated this result transmit kuldip reference range : <=0.40. The reference r nilam was not used to interpr et this result as abiodun l/abnormal. [facility] [employer] SMVCQDQ1141-04-76 14:00:00 Test Item Value Reference Range Interpretation Comments Total CK (test code = Total CK) 196 12-191 [facility] [employer] SDWQMBU4193-03-25 14:00:00 Test Item Value Reference Range Interpretation Comments CK MB (test code = CK MB) 0.5 0.5-3.6 [facility] [employer] TDEIFLZ5513-91-27 14:00:00 Test Item Value Reference Range Interpretation Comments proBNP (test code = 18 See_Comment [Automa kuldip message] The proBNP) system which ge nerated this result tra nsmitted reference range : <=125. The reference r nilam was not used to int erpret this result as abiodun l/abnormal. [facility] [employer] [id number] 14:00:00 Test Item Value Reference Range Interpretation Comments CK MB Index (test 0.3 See_Comment [Automate d message] The code = CK MB Index) system w [facility] generated this result transmit kuldip reference range : <=2.5. The reference range was not used to interpr et this result as abiodun l/abnormal. [facility] [employer] [id number] 14:00:00 Test Item Value Reference Range Interpretation Comments eGFR (test code = eGFR) 111 [facility] [employer] [id number] 14:00:00 Test Item Value Reference Range Interpretation Comments Chloride Lvl (test code = Chloride Lvl) 103 95-109 [facility] [employer] CVZPC9902-07-09 14:00:00 Test Item Value Reference Range Interpretation Comments BUN (test code = BUN) 6 7-22 [facility] [employer] [id number] 14:00:00 Test Item Value Reference Range Interpretation Comments Creatinine Lvl (test code = Creatinine 0.8 0.5-1.4 Lvl) [facility] [employer] [id number] 14:00:00 Test Item Value Reference Range Interpretation Comments Sodium Lvl (test code = Sodium Lvl) 138 135-145 [facility]2015-08-11 14:00:00 Test Item Value Reference Range Interpretation Comments Potassium Lvl (test code = Potassium 3.7 3.5-5.1 Lvl) [facility]2015-08-11 14:00:00 Test Item Value Reference Range Interpretation Comments Calcium Lvl (test code = Calcium Lvl) 9.5 8.5-10.5 [facility]2015-08-11 14:00:00 Test Item Value Reference Range Interpretation Comments Total Protein (test code = Total 8.2 6.4-8.4 Protein) [facility]2015-08-11 14:00:00 Test Item Value Reference Range Interpretation Comments CO2 (test code = CO2) 28 24-32 [facility]2015-08-11 14:00:00 Test Item Value Reference Range Interpretation Comments Bili Total (test code = Bili Total) 0.5 0.2-1.3 [facility]2015-08-11 14:00:00 Test Item Value Reference Range Interpretation Comments AGAP (test code = AGAP) 10.7 10.0-20.0 [facility]2015-08-11 14:00:00 Test Item Value Reference Range Interpretation Comments B/C Ratio (test code = B/C Ratio) 8 6-25 [facility]2015-08-11 14:00:00 Test Item Value Reference Range Interpretation Comments Globulin (test code = Globulin) 5.0 2.0-4.0 [facility]2015-08-11 14:00:00 Test Item Value Reference Range Interpretation Comments A/G Ratio (test code = A/G Ratio) 0.6 0.7-1.6 [facility]2015-08-11 14:00:00 Test Item Value Reference Range Interpretation Comments AST (test code = AST) 16 See_Comment [Auto mated message] The system which ge nerated this result transmit kuldip reference range : <=37. The reference range was not used to interpr et this result as abiodun l/abnormal. [facility]2015-08-11 14:00:00 Test Item Value Reference Range Interpretation Comments Glucose Lvl (test code = Glucose Lvl) 88 70-99 [facility]2015-08-11 14:00:00 Test Item Value Reference Range Interpretation Comments ALT (test code = ALT) 20 See_Comment [Auto mated message] The system which ge nerated this result transmit kuldip reference range : <=65. The reference range was not used to interpr et this result as abiodun l/abnormal. [facility]2015-08-11 14:00:00 Test Item Value Reference Range Interpretation Comments Albumin Lvl (test code = Albumin Lvl) 3.2 3.5-5.0 [facility]2015-08-11 14:00:00 Test Item Value Reference Range Interpretation Comments Alk Phos (test code = Alk Phos) 85 39-136 [facility] CenterHapmfmnHQGDLJRARF1965-00-63 14:00:00 Test Item Value Reference Range Interpretation Comments Basophils (test code = 0.8 See_Comment [Aut omated message] The Basophils) system which ge nerated this result tra nsmitted reference range : <=1.0. The reference r nilam was not used to int erpret this result as normal/abnormal . [facility] CenterZicphpfIVGKTVMRPF2497-27-31 14:00:00 Test Item Value Reference Range Interpretation Comments Lymphocytes # (test code = Lymphocytes 1.3 1.0-5.5 #) [facility] CenterVsdywucGLIDVGDQQD0040-08-15 14:00:00 Test Item Value Reference Range Interpretation Comments Segs-Bands # (test code = Segs-Bands #) 2.4 1.5-8.1 [facility] CenterSkdqnffOFSMKEMDLM8778-51-00 14:00:00 Test Item Value Reference Range Interpretation Comments Monocytes # (test code 0.4 See_Comment [Aut omated message] The = Monocytes #) system which generated this result tra nsmitted reference range : <=0.8. The reference r nilam was not used to int erpret this result as normal/abnormal . [facility] CenterZydwwbeLJFGXSSSLM4680-36-72 14:00:00 Test Item Value Reference Range Interpretation Comments Microcyte (test code = 3+ *NA*(11/03/14 9:00 Microcyte) AM) [facility] CenterDtamxkuWSZHUPWNIF4498-57-04 14:00:00 Test Item Value Reference Range Interpretation Comments Eosinophils # (test code 0.1 See_Comment [A utomated message] The = Eosinophils #) system whic h generated this result tra nsmitted reference range : <=0.5. The reference r nilam was not used to int erpret this result as normal/abnormal . [facility] CenterNxwcrlcKONRIHMRNA7213-48-16 14:00:00 Test Item Value Reference Range Interpretation Comments Segs (test code = Segs) 57.0 45.0-75.0 [facility] CenterLzfzzlbTMPWQJBSIF7138-30-90 14:00:00 Test Item Value Reference Range Interpretation Comments Lymphocytes (test code = Lymphocytes) 30.7 20.0-40.0 [facility] CenterLtffsmvJDBNGSCACP5360-26-15 14:00:00 Test Item Value Reference Range Interpretation Comments Eosinophils (test code = 1.7 See_Comment [A utomated message] The Eosinophils) system which ge nerated this result tra nsmitted reference range : <=4.0. The reference r nilam was not used to int erpret this result as normal/abnormal . [facility] CenterAsoxmogOLMYFDKXKQ1853-77-64 14:00:00 Test Item Value Reference Range Interpretation Comments Monocytes (test code = Monocytes) 9.8 2.0-12.0 [facility] CenterClufnbtYQRLUMLIBO8042-37-67 14:00:00 Test Item Value Reference Range Interpretation Comments Plt Morph (test code = Normal (11/03/14 9:00 Plt Morph) AM) [facility] CenterHchhdegAMSLZKNVZK1800-27-07 14:00:00 Test Item Value Reference Range Interpretation Comments MPV (test code = MPV) 7.6 7.4-10.4 [facility] CenterEwzfwfaKJHGJVYQPX2129-56-87 14:00:00 Test Item Value Reference Range Interpretation Comments Platelet (test code = Platelet) 259 133-450 [facility] CenterNlpanupCJGGZKNSLD5569-07-00 14:00:00 Test Item Value Reference Range Interpretation Comments MCH (test code = MCH) 20.5 pg 27.0-31.0 [facility] CenterNvmaqugFENSFMDTZA3005-11-43 14:00:00 Test Item Value Reference Range Interpretation Comments MCHC (test code = MCHC) 30.3 32.0-36.0 [facility] CenterJroubhuSGCVOSDAKN8506-71-83 14:00:00 Test Item Value Reference Range Interpretation Comments RDW (test code = RDW) 17.4 11.5-14.5 [facility] CenterKagxhofCDVGMSOCHE5522-37-71 14:00:00 Test Item Value Reference Range Interpretation Comments Hgb (test code = Hgb) 8.1 12.0-16.0 [facility] CenterXxeceeuLKBCUQCKEO2346-42-58 14:00:00 Test Item Value Reference Range Interpretation Comments Hct (test code = Hct) 26.7 36.0-48.0 [facility] CenterJkduhlgMKDBRHLVDF7921-50-40 14:00:00 Test Item Value Reference Range Interpretation Comments MCV (test code = MCV) 67.6 80.0-98.0 [facility]WjlxlspNKCMGTFSMY1447-59-32 14:00:00 Test Item Value Reference Range Interpretation Comments RBC (test code = RBC) 3.95 4.20-5.40 [facility] CenterBpovflkTSQRBFMRFP1676-83-52 14:00:00 Test Item Value Reference Range Interpretation Comments WBC (test code = WBC) 4.2 3.7-10.4 [facility] CenterTtdnxxvRPEQUMUDRJ0252-22-98 14:00:00 Test Item Value Reference Range Interpretation Comments D-Dimer (test code = D-Dimer) 0.27 [facility]XsrgrjyVRBIEZASL3987-43-33 21:55:00 Test Item Value Reference Range Interpretation Comments U Preg (test code = U Negative (03/07/2013 N Preg) 15:55:00) [facility]DocqavpNLEZGAVHEV2413-90-86 21:55:00 Test Item Value Reference Range Interpretation Comments UA Bili (test code = Negative *NA*(03/07/2013 UA Bili) 15:55:00) [facility] HospitalRpmfcygVPBRDXNJDV7164-44-94 21:55:00 Test Item Value Reference Range Interpretation Comments UA Blood (test code = Negative (03/07/2013 N UA Blood) 15:55:00) [facility] HospitalZmmtshbEZPGENWFKF4844-11-15 21:55:00 Test Item Value Reference Range Interpretation Comments UA Ketones (test code Negative = UA Ketones) *NA*(03/07/2013 15:55:00) [facility] HospitalFhcvitlJCRUONELIR5602-68-35 21:55:00 Test Item Value Reference Range Interpretation Comments UA Protein (test code = Trace A UA Protein) *ABN*(03/07/2013 15:55:00) [facility] HospitalQjlrsvgOWYUSKMHKY2100-02-99 21:55:00 Test Item Value Reference Range Interpretation Comments UA Glucose (test code Negative (03/07/2013 N = UA Glucose) 15:55:00) [facility]inteUdqhnlpVUODNEVHEM5781-27-75 21:55:00 Test Item Value Reference Range Interpretation Comments UA pH (test code = UA pH) 7.5 1 5.0-8.0 N [facility] PointeRvxdlqlSYOUCMICFA7411-88-44 21:55:00 Test Item Value Reference Range Interpretation Comments UA Nitrite (test code Negative (03/07/2013 N = UA Nitrite) 15:55:00) [facility]inteOgixoyzREHXDBPJIS5435-76-19 21:55:00 Test Item Value Reference Range Interpretation Comments UA Urobilinogen (test code = UA 1.0 0.1-1.0 N Urobilinogen) [facility] PointeHvkhzcpESMBRJEDIM6108-76-91 21:55:00 Test Item Value Reference Range Interpretation Comments UA Leuk Est (test Negative (03/07/2013 N code = UA Leuk Est) 15:55:00) [facility]WijjbkaYXIQECNJIZ0339-57-02 21:55:00 Test Item Value Reference Range Interpretation Comments UA Spec Grav (test code = UA Spec 1.015 1 N Grav) [facility] CenterGgtjdmnCPCERNOETI5936-96-23 21:55:00 Test Item Value Reference Range Interpretation Comments UA Color (test code = Yellow *NA*(03/07/2013 UA Color) 15:55:00) [facility] CenterSwwstjlNMAEZXUFGM1406-19-55 21:55:00 Test Item Value Reference Range Interpretation Comments UA Turbidity (test code = Clear (03/07/2013 N UA Turbidity) 15:55:00) [facility] CenterAoihbdbTQHQWRPNDY7508-30-19 21:55:00 Test Item Value Reference Range Interpretation Comments UA Sq Epi (test code = UA Sq Epi) Few /LPF N [facility]inteKcaknjeJFXMVAOWRW5872-00-71 21:55:00 Test Item Value Reference Range Interpretation Comments Micro? (test code = Performed (03/07/2013 N Micro?) 15:55:00) [facility] CenterVavnbpgWJBNMSYIXO9708-43-55 21:55:00 Test Item Value Reference Range Interpretation Comments UA Bacteria (test code = UA Occasional /HPF N Bacteria) [facility] PointeVbdgleoLIVQELNGA0330-48-57 21:55:00 Test Item Value Reference Range Interpretation Comments U Preg (test code = U Negative (03/07/2013 N Preg) 15:55:00) [facility] HospitalTqvidvnKKERSCCRUW8616-83-35 21:55:00 Test Item Value Reference Range Interpretation Comments UA Bili (test code = Negative *NA*(03/07/2013 UA Bili) 15:55:00) [facility] HospitalGeigijuGPRWBSZQKW9171-14-35 21:55:00 Test Item Value Reference Range Interpretation Comments UA Blood (test code = Negative (03/07/2013 N UA Blood) 15:55:00) [facility] HospitalTfipnxhJVGFQWKVVD6846-72-23 21:55:00 Test Item Value Reference Range Interpretation Comments UA Ketones (test code Negative = UA Ketones) *NA*(03/07/2013 15:55:00) [facility] HospitalRtmkxhaJINUVAMGHO7636-49-03 21:55:00 Test Item Value Reference Range Interpretation Comments UA Protein (test code = Trace A UA Protein) *ABN*(03/07/2013 15:55:00) [facility] HospitalOqfpxjwGSZWLYDONN5242-58-67 21:55:00 Test Item Value Reference Range Interpretation Comments UA Glucose (test code Negative (03/07/2013 N = UA Glucose) 15:55:00) [facility] HospitalMqxkqdpGHKLHFJOJJ5124-08-86 21:55:00 Test Item Value Reference Range Interpretation Comments UA pH (test code = UA pH) 7.5 1 5.0-8.0 N [facility] HospitalOhyifyyNSDYUUHFKV6075-99-22 21:55:00 Test Item Value Reference Range Interpretation Comments UA Nitrite (test code Negative (03/07/2013 N = UA Nitrite) 15:55:00) [facility] HospitalZwarlzlJVIBFVEZEA2283-43-67 21:55:00 Test Item Value Reference Range Interpretation Comments UA Urobilinogen (test code = UA 1.0 0.1-1.0 N Urobilinogen) [facility] HospitalYrsgkffLZWTKQZRCW2699-29-36 21:55:00 Test Item Value Reference Range Interpretation Comments UA Leuk Est (test Negative (03/07/2013 N code = UA Leuk Est) 15:55:00) [facility] HospitalRojglmnKIMYLZBHJW2636-20-62 21:55:00 Test Item Value Reference Range Interpretation Comments UA Spec Grav (test code = UA Spec 1.015 1 N Grav) [facility] HospitalKefxuyfMYFFCWQWMJ5372-63-75 21:55:00 Test Item Value Reference Range Interpretation Comments UA Color (test code = Yellow *NA*(03/07/2013 UA Color) 15:55:00) [facility] PointeDquqjkkNYUYANWMTE7118-46-19 21:55:00 Test Item Value Reference Range Interpretation Comments UA Turbidity (test code = Clear (03/07/2013 N UA Turbidity) 15:55:00) [facility] CenterCkyyhcqTUIDSKZCNH7428-12-61 21:55:00 Test Item Value Reference Range Interpretation Comments UA Sq Epi (test code = UA Sq Epi) Few /LPF N [facility] CenterKtmjeynPWJKALLYLM8087-55-81 21:55:00 Test Item Value Reference Range Interpretation Comments Micro? (test code = Performed (03/07/2013 N Micro?) 15:55:00) [facility] HospitalFshitcySHAOIHUZYS8517-69-80 21:55:00 Test Item Value Reference Range Interpretation Comments UA Bacteria (test code = UA Occasional /HPF N Bacteria) [facility]inteHbqbvbzFLUIGLCLF7158-58-21 21:55:00 Test Item Value Reference Range Interpretation Comments U Preg (test code = U Negative (03/07/2013 N Preg) 15:55:00) [facility] CenterAfckercJIQKXPLGKQ5533-25-80 21:55:00 Test Item Value Reference Range Interpretation Comments UA Bili (test code = Negative *NA*(03/07/2013 UA Bili) 15:55:00) [facility] HospitalFzlqiszHFABHYERRG7754-19-23 21:55:00 Test Item Value Reference Range Interpretation Comments UA Blood (test code = Negative (03/07/2013 N UA Blood) 15:55:00) [facility] CenterKglmrdyQKCAZMKFRB3254-72-33 21:55:00 Test Item Value Reference Range Interpretation Comments UA Ketones (test code Negative = UA Ketones) *NA*(03/07/2013 15:55:00) [facility] CenterBmanzaxMQZZRCZKQP4400-10-45 21:55:00 Test Item Value Reference Range Interpretation Comments UA Protein (test code = Trace A UA Protein) *ABN*(03/07/2013 15:55:00) [facility] HospitalQbvbcrhNMSKLYFDFL3169-19-46 21:55:00 Test Item Value Reference Range Interpretation Comments UA Glucose (test code Negative (03/07/2013 N = UA Glucose) 15:55:00) [facility] CenterXzyummpUJWMCTOJOJ9166-74-86 21:55:00 Test Item Value Reference Range Interpretation Comments UA pH (test code = UA pH) 7.5 1 5.0-8.0 N [facility] HospitalWgxkeanVIIUSYNDRS1230-16-60 21:55:00 Test Item Value Reference Range Interpretation Comments UA Nitrite (test code Negative (03/07/2013 N = UA Nitrite) 15:55:00) [facility] HospitalKvfbroxIQBUXMMNNT1529-41-04 21:55:00 Test Item Value Reference Range Interpretation Comments UA Urobilinogen (test code = UA 1.0 0.1-1.0 N Urobilinogen) [facility] HospitalZbjzcxrVAMAAZEJLH5821-88-41 21:55:00 Test Item Value Reference Range Interpretation Comments UA Leuk Est (test Negative (03/07/2013 N code = UA Leuk Est) 15:55:00) [facility]inteBmspgjlIRUCUGPKLH8381-26-68 21:55:00 Test Item Value Reference Range Interpretation Comments UA Spec Grav (test code = UA Spec 1.015 1 N Grav) [facility] HospitalLpncboiDMHUXZITTE6514-01-42 21:55:00 Test Item Value Reference Range Interpretation Comments UA Color (test code = Yellow *NA*(03/07/2013 UA Color) 15:55:00) [facility] HospitalXfjtmedDKVHBGGWLE3315-56-28 21:55:00 Test Item Value Reference Range Interpretation Comments UA Turbidity (test code = Clear (03/07/2013 N UA Turbidity) 15:55:00) [facility] CenterHbmrmpwOMWVONITYE5435-32-29 21:55:00 Test Item Value Reference Range Interpretation Comments UA Sq Epi (test code = UA Sq Epi) Few /LPF N [facility] HospitalSkxrjnmEHEASEHOGV6641-93-31 21:55:00 Test Item Value Reference Range Interpretation Comments Micro? (test code = Performed (03/07/2013 N Micro?) 15:55:00) [facility] HospitalLmbkxoqXFNPRLWWVA5477-34-75 21:55:00 Test Item Value Reference Range Interpretation Comments UA Bacteria (test code = UA Occasional /HPF N Bacteria) [facility]inteLxyqblxETUWCZTLP1766-10-16 21:55:00 Test Item Value Reference Range Interpretation Comments U Preg (test code = U Negative (03/07/2013 N Preg) 15:55:00) [facility] HospitalRlamgmaYJCPYDKOPQ9862-12-71 21:55:00 Test Item Value Reference Range Interpretation Comments UA Bili (test code = Negative *NA*(03/07/2013 UA Bili) 15:55:00) [facility] HospitalLvokmvyZYORRDLCHX2207-09-83 21:55:00 Test Item Value Reference Range Interpretation Comments UA Blood (test code = Negative (03/07/2013 N UA Blood) 15:55:00) [facility] HospitalCvezoxdGNXZQHGXBH7474-18-37 21:55:00 Test Item Value Reference Range Interpretation Comments UA Ketones (test code Negative = UA Ketones) *NA*(03/07/2013 15:55:00) [facility] HospitalAnqldmnFVYCNHPUKH5532-84-18 21:55:00 Test Item Value Reference Range Interpretation Comments UA Protein (test code = Trace A UA Protein) *ABN*(03/07/2013 15:55:00) [facility] HospitalChldgabSMTNDRZKHF5094-97-88 21:55:00 Test Item Value Reference Range Interpretation Comments UA Glucose (test code Negative (03/07/2013 N = UA Glucose) 15:55:00) [facility] HospitalUwlrrgqRKFCRLERSE3878-63-40 21:55:00 Test Item Value Reference Range Interpretation Comments UA pH (test code = UA pH) 7.5 1 5.0-8.0 N [facility] HospitalOguwqjnCHGBXEMCRZ0423-32-50 21:55:00 Test Item Value Reference Range Interpretation Comments UA Nitrite (test code Negative (03/07/2013 N = UA Nitrite) 15:55:00) [facility] HospitalSgnuwxmXDPLCJBPKQ3314-13-54 21:55:00 Test Item Value Reference Range Interpretation Comments UA Urobilinogen (test code = UA 1.0 0.1-1.0 N Urobilinogen) [facility] HospitalTmxohwtAZBEPMIJNR8155-83-33 21:55:00 Test Item Value Reference Range Interpretation Comments UA Leuk Est (test Negative (03/07/2013 N code = UA Leuk Est) 15:55:00) [facility] HospitalHaolezsACTCPAPFPB1421-16-34 21:55:00 Test Item Value Reference Range Interpretation Comments UA Spec Grav (test code = UA Spec 1.015 1 N Grav) [facility] HospitalCfncvrxZXJTIWVSSK7373-90-34 21:55:00 Test Item Value Reference Range Interpretation Comments UA Color (test code = Yellow *NA*(03/07/2013 UA Color) 15:55:00) [facility] CenterBeueletVXLOGSIDUR6682-13-03 21:55:00 Test Item Value Reference Range Interpretation Comments UA Turbidity (test code = Clear (03/07/2013 N UA Turbidity) 15:55:00) [facility] CenterXdrvppdKKVOLDSCNR9852-74-80 21:55:00 Test Item Value Reference Range Interpretation Comments UA Sq Epi (test code = UA Sq Epi) Few /LPF N [facility] CenterVzikfvyZZOONZTLFS6168-18-61 21:55:00 Test Item Value Reference Range Interpretation Comments Micro? (test code = Performed (03/07/2013 N Micro?) 15:55:00) [facility] HospitalHundkkdLZBVMZETUP1564-73-55 21:55:00 Test Item Value Reference Range Interpretation Comments UA Bacteria (test code = UA Occasional /HPF N Bacteria) [facility]RylwcfpCPJLLECOQ4104-03-19 21:55:00 Test Item Value Reference Range Interpretation Comments U Preg (test code = U Negative (03/07/2013 N Preg) 15:55:00) [facility] CenterAxefeypKAOVRFQBFL1548-95-62 21:55:00 Test Item Value Reference Range Interpretation Comments UA Bili (test code = Negative *NA*(03/07/2013 UA Bili) 15:55:00) [facility] CenterCirafltFLFPASCNFW9132-14-23 21:55:00 Test Item Value Reference Range Interpretation Comments UA Blood (test code = Negative (03/07/2013 N UA Blood) 15:55:00) [facility] CenterXqpdsdvBNGFNQMKSM7356-13-59 21:55:00 Test Item Value Reference Range Interpretation Comments UA Ketones (test code Negative = UA Ketones) *NA*(03/07/2013 15:55:00) [facility] CenterKaevnqtMMTUEBRGWU7905-52-61 21:55:00 Test Item Value Reference Range Interpretation Comments UA Protein (test code = Trace A UA Protein) *ABN*(03/07/2013 15:55:00) [facility] CenterGblpqbyYBVNDNAWPP2607-30-83 21:55:00 Test Item Value Reference Range Interpretation Comments UA Glucose (test code Negative (03/07/2013 N = UA Glucose) 15:55:00) [facility] CenterCgcleaeGKLWXWSIRY0156-56-80 21:55:00 Test Item Value Reference Range Interpretation Comments UA pH (test code = UA pH) 7.5 1 5.0-8.0 N [facility] HospitalQbmwxvjANJWTMLKPT4439-24-74 21:55:00 Test Item Value Reference Range Interpretation Comments UA Nitrite (test code Negative (03/07/2013 N = UA Nitrite) 15:55:00) [facility] PointeNuksdqtDCZEJFLYGO3417-37-99 21:55:00 Test Item Value Reference Range Interpretation Comments UA Urobilinogen (test code = UA 1.0 0.1-1.0 N Urobilinogen) [facility] PointeNcclcdbQFUJZRSOFD7481-14-03 21:55:00 Test Item Value Reference Range Interpretation Comments UA Leuk Est (test Negative (03/07/2013 N code = UA Leuk Est) 15:55:00) [facility] CenterLhtrldvWBPJPDHHRF4961-89-89 21:55:00 Test Item Value Reference Range Interpretation Comments UA Spec Grav (test code = UA Spec 1.015 1 N Grav) [facility] CenterTdqnhskNIJEJVFJZP7390-20-92 21:55:00 Test Item Value Reference Range Interpretation Comments UA Color (test code = Yellow *NA*(03/07/2013 UA Color) 15:55:00) [facility] PointeGudjkuyCESCHJAIBC0129-37-48 21:55:00 Test Item Value Reference Range Interpretation Comments UA Turbidity (test code = Clear (03/07/2013 N UA Turbidity) 15:55:00) [facility] CenterSztdfdbIVUOONETXE0536-23-03 21:55:00 Test Item Value Reference Range Interpretation Comments UA Sq Epi (test code = UA Sq Epi) Few /LPF N [facility] PointeTckqhzwWVKRQXFUGQ1840-46-88 21:55:00 Test Item Value Reference Range Interpretation Comments Micro? (test code = Performed (03/07/2013 N Micro?) 15:55:00) [facility] PointeGiwvmfnCSGDYOZRXA3218-72-19 21:55:00 Test Item Value Reference Range Interpretation Comments UA Bacteria (test code = UA Occasional /HPF N Bacteria) [facility] PointeUwhzzioRRGJLWQYK0438-73-16 15:45:45 Test Item Value Reference Range Interpretation Comments CK-MB INDEX (test 0.2 See_Comment N [Automate d message] The code = CK-MB INDEX) system w [facility] generated this result transmit kuldip reference range : <=2.5. The reference range was not used to interpr et this result as abiodun l/abnormal. [facility]ThkdsxiMGKCBINCQ1028-87-94 15:45:45 Test Item Value Reference Range Interpretation Comments Lactic Acid Lvl (test code = Lactic 1.9 0.5-2.2 N Acid Lvl) [facility]roePkzbmidAOZEICMVA9039-68-75 15:45:45 Test Item Value Reference Range Interpretation Comments CK MB (test code = CK MB) 1.1 0.5-3.6 N [facility]roeGczmyyvZPRDEVIUP5988-23-87 15:45:45 Test Item Value Reference Range Interpretation Comments Troponin-I (test code no gt See_Comment N [Auto mated message] The = Troponin-I) system which g enerated this result transmit kuldip reference range : <=0.40. The reference r nilam was not used to interpr et this result as abiodun l/abnormal. [facility]roeBmitwwvTIYGMJBGV0338-67-36 15:45:45 Test Item Value Reference Range Interpretation Comments eGFR (test code = eGFR) 82 [facility]roeYelwklbFBMZUOOEM1268-02-31 15:45:45 Test Item Value Reference Range Interpretation Comments BUN (test code = BUN) 7 7-22 N [facility]roeIwlnoejZTPIZXMAQ9035-79-62 15:45:45 Test Item Value Reference Range Interpretation Comments Potassium Lvl (test code = Potassium 3.9 3.5-5.1 N Lvl) [facility]roeNvcaxorGIXKGSNHF4442-14-98 15:45:45 Test Item Value Reference Range Interpretation Comments Calcium Lvl (test code = Calcium Lvl) 9.6 8.5-10.5 N [facility]roeKyqfrcsFUUNMSWZU1545-52-46 15:45:45 Test Item Value Reference Range Interpretation Comments AGAP (test code = AGAP) 12.9 10.0-20.0 N [facility]roeKshztwxQBPAMZRZX2367-47-99 15:45:45 Test Item Value Reference Range Interpretation Comments Glucose Lvl (test code = Glucose Lvl) 131 70-99 H [facility]roeKpdfotnYABASISOU5643-74-10 15:45:45 Test Item Value Reference Range Interpretation Comments Chloride Lvl (test code = Chloride Lvl) 102 95-109 N [facility]roeRnufulzQSBCDXHGP3084-66-86 15:45:45 Test Item Value Reference Range Interpretation Comments CO2 (test code = CO2) 24 24-32 N [facility]roeHbzxsuhHYCAUFVRW3638-99-96 15:45:45 Test Item Value Reference Range Interpretation Comments Creatinine Lvl (test code = Creatinine 0.9 0.5-1.4 N Lvl) [facility]roeNxvscbsSGETWTFPM8412-22-70 15:45:45 Test Item Value Reference Range Interpretation Comments Sodium Lvl (test code = Sodium Lvl) 135 135-145 N [facility]roeFhhfrsiBVYSMESYJ0527-96-13 15:45:45 Test Item Value Reference Range Interpretation Comments Total CK (test code = Total CK) 469 12-191 H [facility]roePfiemshJGEWFTYDE8843-67-70 15:45:45 Test Item Value Reference Range Interpretation Comments CK-MB INDEX (test 0.2 See_Comment N [Automate d message] The code = CK-MB INDEX) system w [facility] generated this result transmit kuldip reference range : <=2.5. The reference range was not used to interpr et this result as abiodun l/abnormal. [facility]roeWjjzeziKLVWYDASW8011-46-83 15:45:45 Test Item Value Reference Range Interpretation Comments Lactic Acid Lvl (test code = Lactic 1.9 0.5-2.2 N Acid Lvl) [facility]roeVwykafzXYVYURHNX1485-75-35 15:45:45 Test Item Value Reference Range Interpretation Comments CK MB (test code = CK MB) 1.1 0.5-3.6 N [facility]roeRltgbxrTKOUFPWPS4864-30-18 15:45:45 Test Item Value Reference Range Interpretation Comments Troponin-I (test code no gt See_Comment N [Auto mated message] The = Troponin-I) system which g enerated this result transmit kuldip reference range : <=0.40. The reference r nilam was not used to interpr et this result as abiodun l/abnormal. [facility]roeSgvjpheIETLMNPUN9239-45-18 15:45:45 Test Item Value Reference Range Interpretation Comments eGFR (test code = eGFR) 82 [facility]roeRrhdgolARVXVJNJD0766-38-24 15:45:45 Test Item Value Reference Range Interpretation Comments BUN (test code = BUN) 7 7-22 N [facility]roePqcbmdgOUQAAMQQL0028-71-19 15:45:45 Test Item Value Reference Range Interpretation Comments Potassium Lvl (test code = Potassium 3.9 3.5-5.1 N Lvl) [facility]roeVlrhnlxPRIDOJKHM3772-14-89 15:45:45 Test Item Value Reference Range Interpretation Comments Calcium Lvl (test code = Calcium Lvl) 9.6 8.5-10.5 N [facility]roeJleeiccOJJCETICM7058-22-89 15:45:45 Test Item Value Reference Range Interpretation Comments AGAP (test code = AGAP) 12.9 10.0-20.0 N [facility]roeExtflrxHTAKBFRKX1019-31-64 15:45:45 Test Item Value Reference Range Interpretation Comments Glucose Lvl (test code = Glucose Lvl) 131 70-99 H [facility]roeXcjxtgyUOGEPRUKT0313-06-98 15:45:45 Test Item Value Reference Range Interpretation Comments Chloride Lvl (test code = Chloride Lvl) 102 95-109 N [facility]roeFrbzproDRWBCYCNZ4735-48-28 15:45:45 Test Item Value Reference Range Interpretation Comments CO2 (test code = CO2) 24 24-32 N [facility]roeSwmmghkYNFCOHVDA4276-20-83 15:45:45 Test Item Value Reference Range Interpretation Comments Creatinine Lvl (test code = Creatinine 0.9 0.5-1.4 N Lvl) [facility]roeSxiksmrTJRRANPOU5894-76-04 15:45:45 Test Item Value Reference Range Interpretation Comments Sodium Lvl (test code = Sodium Lvl) 135 135-145 N [facility]roeUgrhwsxVPTGTFOTI1978-19-68 15:45:45 Test Item Value Reference Range Interpretation Comments Total CK (test code = Total CK) 469 12-191 H [facility]roeSkhggcqSVCUXDEYK0539-65-74 15:45:45 Test Item Value Reference Range Interpretation Comments CK-MB INDEX (test 0.2 See_Comment N [Automate d message] The code = CK-MB INDEX) system w [facility] generated this result transmit kuldip reference range : <=2.5. The reference range was not used to interpr et this result as abiodun l/abnormal. [facility]roeKglubisAOWVIJOGZ7293-35-92 15:45:45 Test Item Value Reference Range Interpretation Comments Lactic Acid Lvl (test code = Lactic 1.9 0.5-2.2 N Acid Lvl) [facility]roeOtkjshaJFOYWFEGK2049-50-60 15:45:45 Test Item Value Reference Range Interpretation Comments CK MB (test code = CK MB) 1.1 0.5-3.6 N [facility]roeDmeciquQKZKYHJIQ9562-25-06 15:45:45 Test Item Value Reference Range Interpretation Comments Troponin-I (test code no gt See_Comment N [Auto mated message] The = Troponin-I) system which g enerated this result transmit kuldip reference range : <=0.40. The reference r nilam was not used to interpr et this result as abiodun l/abnormal. [facility]roeIweovuuOFKXKGSWS2973-57-02 15:45:45 Test Item Value Reference Range Interpretation Comments eGFR (test code = eGFR) 82 [facility]roeMowscvuUFGSNQZNO1521-21-30 15:45:45 Test Item Value Reference Range Interpretation Comments BUN (test code = BUN) 7 7-22 N [facility]roeKvdlzmeLKKXGAQBT7717-26-51 15:45:45 Test Item Value Reference Range Interpretation Comments Potassium Lvl (test code = Potassium 3.9 3.5-5.1 N Lvl) [facility]roeZdjpbsoVFJLDESBT0673-70-97 15:45:45 Test Item Value Reference Range Interpretation Comments Calcium Lvl (test code = Calcium Lvl) 9.6 8.5-10.5 N [facility]roeDwgujhlAYDGSSOZX0513-82-66 15:45:45 Test Item Value Reference Range Interpretation Comments AGAP (test code = AGAP) 12.9 10.0-20.0 N [facility]roeNvbvvdbXUXCATGHJ7472-60-82 15:45:45 Test Item Value Reference Range Interpretation Comments Glucose Lvl (test code = Glucose Lvl) 131 70-99 H [facility]roeYrbxpsaUYEWZXOKE2692-78-84 15:45:45 Test Item Value Reference Range Interpretation Comments Chloride Lvl (test code = Chloride Lvl) 102 95-109 N [facility]roeOypldihSUGULUIKC1282-05-75 15:45:45 Test Item Value Reference Range Interpretation Comments CO2 (test code = CO2) 24 24-32 N [facility]roeSbjbqmnAYVTIAHJW9597-10-85 15:45:45 Test Item Value Reference Range Interpretation Comments Creatinine Lvl (test code = Creatinine 0.9 0.5-1.4 N Lvl) [facility]CynlmaqACZBIWGBZ2827-86-19 15:45:45 Test Item Value Reference Range Interpretation Comments Sodium Lvl (test code = Sodium Lvl) 135 135-145 N [facility]roeUekdojgQVJKXJXXK8655-52-14 15:45:45 Test Item Value Reference Range Interpretation Comments Total CK (test code = Total CK) 469 12-191 H [facility]roeUpmzxeaKHOGEWGCJ1965-21-83 15:45:45 Test Item Value Reference Range Interpretation Comments CK-MB INDEX (test 0.2 See_Comment N [Automate d message] The code = CK-MB INDEX) system w [facility] generated this result transmit kuldip reference range : <=2.5. The reference range was not used to interpr et this result as abiodun l/abnormal. [facility]roeYraaucsARJFIXGXN8737-34-09 15:45:45 Test Item Value Reference Range Interpretation Comments Lactic Acid Lvl (test code = Lactic 1.9 0.5-2.2 N Acid Lvl) [facility]roeUtpuoepUYAMVFJNR1371-12-53 15:45:45 Test Item Value Reference Range Interpretation Comments CK MB (test code = CK MB) 1.1 0.5-3.6 N [facility]roeHalgfmkREDNJHRBP7274-88-75 15:45:45 Test Item Value Reference Range Interpretation Comments Troponin-I (test code no gt See_Comment N [Auto mated message] The = Troponin-I) system which g enerated this result transmit kuldip reference range : <=0.40. The reference r nilam was not used to interpr et this result as abiodun l/abnormal. [facility]roeOsuztmiZZERXCWKZ5797-79-00 15:45:45 Test Item Value Reference Range Interpretation Comments eGFR (test code = eGFR) 82 [facility]roeJcwsxrqEHJBECPCP2407-34-79 15:45:45 Test Item Value Reference Range Interpretation Comments BUN (test code = BUN) 7 7-22 N [facility]roePepghhoPJNLLFLSN8926-40-84 15:45:45 Test Item Value Reference Range Interpretation Comments Potassium Lvl (test code = Potassium 3.9 3.5-5.1 N Lvl) [facility]roePrmhxaqVMXFLSPMH8752-45-81 15:45:45 Test Item Value Reference Range Interpretation Comments Calcium Lvl (test code = Calcium Lvl) 9.6 8.5-10.5 N [facility]roeDqeesscARYHVPXJA9051-53-88 15:45:45 Test Item Value Reference Range Interpretation Comments AGAP (test code = AGAP) 12.9 10.0-20.0 N [facility]roeVnzojckFHIZEOZJR1725-60-53 15:45:45 Test Item Value Reference Range Interpretation Comments Glucose Lvl (test code = Glucose Lvl) 131 70-99 H [facility]roeAquouomOTGCEQJWW4326-15-08 15:45:45 Test Item Value Reference Range Interpretation Comments Chloride Lvl (test code = Chloride Lvl) 102 95-109 N [facility]roeNiwexjiSSNKXJGTO9758-57-52 15:45:45 Test Item Value Reference Range Interpretation Comments CO2 (test code = CO2) 24 24-32 N [facility]roeFnlpprhAFRUWIEFF5524-05-36 15:45:45 Test Item Value Reference Range Interpretation Comments Creatinine Lvl (test code = Creatinine 0.9 0.5-1.4 N Lvl) [facility]roeXauazdmNGHZIKFRB0386-48-45 15:45:45 Test Item Value Reference Range Interpretation Comments Sodium Lvl (test code = Sodium Lvl) 135 135-145 N [facility]roeIgdrufaQMNEZHRFV7744-74-00 15:45:45 Test Item Value Reference Range Interpretation Comments Total CK (test code = Total CK) 469 12-191 H [facility]roeRoadwwyTXNMWIUEK3386-70-34 15:45:45 Test Item Value Reference Range Interpretation Comments CK-MB INDEX (test 0.2 See_Comment N [Automate d message] The code = CK-MB INDEX) system w [facility] generated this result transmit kuldip reference range : <=2.5. The reference range was not used to interpr et this result as abiodun l/abnormal. [facility]roeNbevaxlQUNADWZCC5229-47-08 15:45:45 Test Item Value Reference Range Interpretation Comments Lactic Acid Lvl (test code = Lactic 1.9 0.5-2.2 N Acid Lvl) [facility]roeBvowjnaFNELLONOR9430-71-61 15:45:45 Test Item Value Reference Range Interpretation Comments CK MB (test code = CK MB) 1.1 0.5-3.6 N [facility]roeCwqmbkvVPSYEFIRA7527-88-43 15:45:45 Test Item Value Reference Range Interpretation Comments Troponin-I (test code no gt See_Comment N [Auto mated message] The = Troponin-I) system which g enerated this result transmit kuldip reference range : <=0.40. The reference r nilam was not used to interpr et this result as abiodun l/abnormal. [facility]roeLvbizcxFDOUGUWEJ5849-91-87 15:45:45 Test Item Value Reference Range Interpretation Comments eGFR (test code = eGFR) 82 [facility]roeQmgvpyyLMNQWYUYS2485-18-27 15:45:45 Test Item Value Reference Range Interpretation Comments BUN (test code = BUN) 7 7-22 N [facility]roeFkdvisnWKRRTWDAD5294-10-15 15:45:45 Test Item Value Reference Range Interpretation Comments Potassium Lvl (test code = Potassium 3.9 3.5-5.1 N Lvl) [facility]roeMhirnrvLCXMZLXXM0009-90-51 15:45:45 Test Item Value Reference Range Interpretation Comments Calcium Lvl (test code = Calcium Lvl) 9.6 8.5-10.5 N [facility]roePcdrehsMCLDBBMJH9220-80-25 15:45:45 Test Item Value Reference Range Interpretation Comments AGAP (test code = AGAP) 12.9 10.0-20.0 N [facility]roeQkcomqxPCXABRBFI2664-66-72 15:45:45 Test Item Value Reference Range Interpretation Comments Glucose Lvl (test code = Glucose Lvl) 131 70-99 H [facility]roeFkdebonZDWWDQLJN8700-41-07 15:45:45 Test Item Value Reference Range Interpretation Comments Chloride Lvl (test code = Chloride Lvl) 102 95-109 N [facility]roeZiqnfuqFSQPETKSO3715-17-80 15:45:45 Test Item Value Reference Range Interpretation Comments CO2 (test code = CO2) 24 24-32 N [facility]roeRkuiatfXAXQKLBTV3192-40-69 15:45:45 Test Item Value Reference Range Interpretation Comments Creatinine Lvl (test code = Creatinine 0.9 0.5-1.4 N Lvl) [facility]roeHjwanrlLTDLQEBGV4330-24-32 15:45:45 Test Item Value Reference Range Interpretation Comments Sodium Lvl (test code = Sodium Lvl) 135 135-145 N [facility]roeDfebtrkYUSGKQUGW9169-26-47 15:45:45 Test Item Value Reference Range Interpretation Comments Total CK (test code = Total CK) 469 12-191 H [facility]VIR[facility] KDGHAPIW4916-81-48 15:45:37 Test Item Value Reference Range Interpretation Comments Influ A (test code = Negative (03/07/2013 N Influ A) 09:45:37) [facility] MHFVWQDD9524-19-78 15:45:37 Test Item Value Reference Range Interpretation Comments Influ B (test code = Negative 1(03/07/2013 N Influ B) 09:45:37) [facility] - EHWFIOLR4438-95-66 15:45:37 Test Item Value Reference Range Interpretation Comments Influ A (test code = Negative (03/07/2013 N Influ A) 09:45:37) [facility] WROPXCDP3062-95-68 15:45:37 Test Item Value Reference Range Interpretation Comments Influ B (test code = Negative 1(03/07/2013 N Influ B) 09:45:37) [facility] UHMBTZRW3554-36-46 15:45:37 Test Item Value Reference Range Interpretation Comments Influ A (test code = Negative (03/07/2013 N Influ A) 09:45:37) [facility] - CGLIQLRE0851-13-16 15:45:37 Test Item Value Reference Range Interpretation Comments Influ B (test code = Negative 1(03/07/2013 N Influ B) 09:45:37) [facility] AHGCUDMW9670-17-24 15:45:37 Test Item Value Reference Range Interpretation Comments Influ A (test code = Negative (03/07/2013 N Influ A) 09:45:37) [facility] AUQZKWRX0391-47-21 15:45:37 Test Item Value Reference Range Interpretation Comments Influ B (test code = Negative 1(03/07/2013 N Influ B) 09:45:37) [facility] ACLWNLXZ7439-38-68 15:45:37 Test Item Value Reference Range Interpretation Comments Influ A (test code = Negative (03/07/2013 N Influ A) 09:45:37) [facility] VRXNVITI2942-98-09 15:45:37 Test Item Value Reference Range Interpretation Comments Influ B (test code = Negative 1(03/07/2013 N Influ B) 09:45:37) [facility]inteFmbzuprITBEBKGJRG0928-30-57 15:45:00 Test Item Value Reference Range Interpretation Comments Eosinophils (test code = 0.1 See_Comment N [A utomated message] The Eosinophils) system which ge nerated this result tra nsmitted reference range : <=4.0. The reference r nilam was not used to int erpret this result as normal/abnormal . [facility]inteSkqorjnDAALMLMBPN5785-41-35 15:45:00 Test Item Value Reference Range Interpretation Comments Basophils (test code = 0.0 See_Comment N [Aut omated message] The Basophils) system which ge nerated this result tra nsmitted reference range : <=1.0. The reference r nilam was not used to int erpret this result as normal/abnormal . [facility] CenterZyrgcwwHGRSCYXRER6414-87-27 15:45:00 Test Item Value Reference Range Interpretation Comments Target Cell (test code Slight A = Target Cell) *ABN*(03/07/2013 09:45:00) [facility] CenterXxkfsziUIFZOBUWTP5020-38-68 15:45:00 Test Item Value Reference Range Interpretation Comments Elliptocyte (test code = Slight A Elliptocyte) *ABN*(03/07/2013 09:45:00) [facility] CenterMhgwmosBYEPJLUFUH7923-63-92 15:45:00 Test Item Value Reference Range Interpretation Comments Plt Morph (test code = Normal (03/07/2013 N Plt Morph) 09:45:00) [facility] CenterShfilywLUIHXMOWAG1269-36-92 15:45:00 Test Item Value Reference Range Interpretation Comments Basophils # (test code 0.0 See_Comment N [Aut omated message] The = Basophils #) system which generated this result tra nsmitted reference range : <=0.2. The reference r nilam was not used to int erpret this result as normal/abnormal . [facility] CenterGjunygjXRLVVZTIHD9674-49-31 15:45:00 Test Item Value Reference Range Interpretation Comments Microcyte (test code = 1+ *ABN*(03/07/2013 A Microcyte) 09:45:00) [facility] CenterSkngjeyLTEWFUTDRL5396-52-03 15:45:00 Test Item Value Reference Range Interpretation Comments Lymphocytes # (test code = Lymphocytes 0.2 1.0-5.5 L #) [facility] CenterGfvwfmySMOJOCWAIE5625-71-94 15:45:00 Test Item Value Reference Range Interpretation Comments Eosinophils # (test code 0.0 See_Comment N [A utomated message] The = Eosinophils #) system whic h generated this result tra nsmitted reference range : <=0.5. The reference r nilam was not used to int erpret this result as normal/abnormal . [facility] CenterWvywaiwEAXCBACDPB1776-38-62 15:45:00 Test Item Value Reference Range Interpretation Comments Monocytes # (test code 0.4 See_Comment N [Aut omated message] The = Monocytes #) system which generated this result tra nsmitted reference range : <=0.8. The reference r nilam was not used to int erpret this result as normal/abnormal . [facility] CenterZrgoujeBSKKMHBWYX2440-16-51 15:45:00 Test Item Value Reference Range Interpretation Comments Segs-Bands # (test code = Segs-Bands #) 6.7 1.5-8.1 N [facility] CenterKdvgginICKEXAJNYW0561-31-16 15:45:00 Test Item Value Reference Range Interpretation Comments Segs (test code = Segs) 91.4 45.0-75.0 H [facility] CenterWdtwgykSLLEMAWBIC7738-26-23 15:45:00 Test Item Value Reference Range Interpretation Comments Lymphocytes (test code = Lymphocytes) 3.3 20.0-40.0 L [facility] CenterIictqcvIONXVUSFEH0665-06-85 15:45:00 Test Item Value Reference Range Interpretation Comments Monocytes (test code = Monocytes) 5.2 2.0-12.0 N [facility] CenterYrujcavFYSLCHAABR0234-32-22 15:45:00 Test Item Value Reference Range Interpretation Comments Polychrom (test code = Slight (03/07/2013 N Polychrom) 09:45:00) [facility] CenterRwtcujbOUXSINGWPW0137-90-99 15:45:00 Test Item Value Reference Range Interpretation Comments Hypochrom (test code = Slight (03/07/2013 N Hypochrom) 09:45:00) [facility] CenterMsviwthOKDHYUJMYR3075-20-07 15:45:00 Test Item Value Reference Range Interpretation Comments RBC X 10x6 (test code = RBC X 10x6) 3.99 4.20-5.40 L [facility] CenterRfhyrdyNCFXKGRHVK2651-48-33 15:45:00 Test Item Value Reference Range Interpretation Comments Hgb (test code = Hgb) 8.3 12.0-16.0 L [facility] CenterRsiocehRWYVAKDOJF0565-53-18 15:45:00 Test Item Value Reference Range Interpretation Comments WBC X 10x3 (test code = WBC X 10x3) 7.3 3.7-10.4 N [facility] CenterKabbnrlRGCXISHHRC2714-37-04 15:45:00 Test Item Value Reference Range Interpretation Comments Platelet (test code = Platelet) 305 133-450 N [facility] CenterTmffjbpFHRIPOPIOU0756-53-41 15:45:00 Test Item Value Reference Range Interpretation Comments RDW (test code = RDW) 17.9 11.5-14.5 H [facility] CenterYeimzoxYJJFAUCGYE3556-26-83 15:45:00 Test Item Value Reference Range Interpretation Comments Hct (test code = Hct) 26.1 36.0-48.0 L [facility] CenterRzhgoldBYDXARJXHH4766-34-05 15:45:00 Test Item Value Reference Range Interpretation Comments MCH (test code = MCH) 20.7 pg 27.0-31.0 L [facility] CenterRgsqyygXFMZXIHQZP2276-84-79 15:45:00 Test Item Value Reference Range Interpretation Comments MCV (test code = MCV) 65.4 81.0-99.0 L [facility] CenterKyevlciWIOVLSZJDF2867-68-63 15:45:00 Test Item Value Reference Range Interpretation Comments MCHC (test code = MCHC) 31.7 32.0-36.0 L [facility] CenterNknszxsJXRIZQGWSA6380-55-21 15:45:00 Test Item Value Reference Range Interpretation Comments MPV (test code = MPV) 8.0 7.4-10.4 N [facility] CenterGbculiqYKGMBOJWKA3816-01-29 15:45:00 Test Item Value Reference Range Interpretation Comments Eosinophils (test code = 0.1 See_Comment N [A utomated message] The Eosinophils) system which ge nerated this result tra nsmitted reference range : <=4.0. The reference r nilam was not used to int erpret this result as normal/abnormal . [facility] CenterErivozfYVQOBAWHBJ7303-63-80 15:45:00 Test Item Value Reference Range Interpretation Comments Basophils (test code = 0.0 See_Comment N [Aut omated message] The Basophils) system which ge nerated this result tra nsmitted reference range : <=1.0. The reference r nilam was not used to int erpret this result as normal/abnormal . [facility] CenterSetlleaDRNTIPCLHJ4015-82-17 15:45:00 Test Item Value Reference Range Interpretation Comments Target Cell (test code Slight A = Target Cell) *ABN*(03/07/2013 09:45:00) [facility] CenterTbeldbnOUBAPMZLOY0280-35-99 15:45:00 Test Item Value Reference Range Interpretation Comments Elliptocyte (test code = Slight A Elliptocyte) *ABN*(03/07/2013 09:45:00) [facility] CenterDjaxmorXJIIMNEKHF7928-74-84 15:45:00 Test Item Value Reference Range Interpretation Comments Plt Morph (test code = Normal (03/07/2013 N Plt Morph) 09:45:00) [facility] CenterIwmadvyOLJIXMHERP1130-66-26 15:45:00 Test Item Value Reference Range Interpretation Comments Basophils # (test code 0.0 See_Comment N [Aut omated message] The = Basophils #) system which generated this result tra nsmitted reference range : <=0.2. The reference r nilam was not used to int erpret this result as normal/abnormal . [facility] CenterMxfbpozCOGINUBKML8199-11-43 15:45:00 Test Item Value Reference Range Interpretation Comments Microcyte (test code = 1+ *ABN*(03/07/2013 A Microcyte) 09:45:00) [facility] CenterJtxlkweXNCSEJJJXG4033-95-76 15:45:00 Test Item Value Reference Range Interpretation Comments Lymphocytes # (test code = Lymphocytes 0.2 1.0-5.5 L #) [facility] CenterLmlxwyiZTSBRCCIDK2111-98-55 15:45:00 Test Item Value Reference Range Interpretation Comments Eosinophils # (test code 0.0 See_Comment N [A utomated message] The = Eosinophils #) system whic h generated this result tra nsmitted reference range : <=0.5. The reference r nilam was not used to int erpret this result as normal/abnormal . [facility] CenterOxfqwxfWIVTYPENUL0463-44-58 15:45:00 Test Item Value Reference Range Interpretation Comments Monocytes # (test code 0.4 See_Comment N [Aut omated message] The = Monocytes #) system which generated this result tra nsmitted reference range : <=0.8. The reference r nilam was not used to int erpret this result as normal/abnormal . [facility] CenterMaywehsHDASVXIVTX0095-93-58 15:45:00 Test Item Value Reference Range Interpretation Comments Segs-Bands # (test code = Segs-Bands #) 6.7 1.5-8.1 N [facility] CenterPllnrkaCNDSZAIBEO9482-85-42 15:45:00 Test Item Value Reference Range Interpretation Comments Segs (test code = Segs) 91.4 45.0-75.0 H [facility] CenterAtkjkubLDAZYPESGQ7389-76-76 15:45:00 Test Item Value Reference Range Interpretation Comments Lymphocytes (test code = Lymphocytes) 3.3 20.0-40.0 L [facility] CenterVnaprexTGEODOXZIS6456-02-39 15:45:00 Test Item Value Reference Range Interpretation Comments Monocytes (test code = Monocytes) 5.2 2.0-12.0 N [facility] CenterLqvmdjbMQDURPCIOW9459-43-84 15:45:00 Test Item Value Reference Range Interpretation Comments Polychrom (test code = Slight (03/07/2013 N Polychrom) 09:45:00) [facility] CenterPrzuhcjGXKXTYNPGN6292-50-95 15:45:00 Test Item Value Reference Range Interpretation Comments Hypochrom (test code = Slight (03/07/2013 N Hypochrom) 09:45:00) [facility] CenterZhllluhMYMUZCSQHH5840-91-68 15:45:00 Test Item Value Reference Range Interpretation Comments RBC X 10x6 (test code = RBC X 10x6) 3.99 4.20-5.40 L [facility] CenterNpickizJFCVSUSQVI9503-90-72 15:45:00 Test Item Value Reference Range Interpretation Comments Hgb (test code = Hgb) 8.3 12.0-16.0 L [facility] CenterEreszueQCKSKPNQXU2733-44-37 15:45:00 Test Item Value Reference Range Interpretation Comments WBC X 10x3 (test code = WBC X 10x3) 7.3 3.7-10.4 N [facility] CenterQysggpqTNPEVRSKKA2257-85-65 15:45:00 Test Item Value Reference Range Interpretation Comments Platelet (test code = Platelet) 305 133-450 N [facility] CenterTitcourJJTMGZHRWC4335-01-37 15:45:00 Test Item Value Reference Range Interpretation Comments RDW (test code = RDW) 17.9 11.5-14.5 H [facility] CenterYkirnycSKGTIYALQM4607-70-65 15:45:00 Test Item Value Reference Range Interpretation Comments Hct (test code = Hct) 26.1 36.0-48.0 L [facility] CenterVcuquzzKSLMWFPZAU5857-52-59 15:45:00 Test Item Value Reference Range Interpretation Comments MCH (test code = MCH) 20.7 pg 27.0-31.0 L [facility] CenterBxmmnduPRMRTBOEGG5657-65-99 15:45:00 Test Item Value Reference Range Interpretation Comments MCV (test code = MCV) 65.4 81.0-99.0 L [place] [address]-12-13 15:45:00 Test Item Value Reference Range Interpretation Comments MCHC (test code = MCHC) 31.7 32.0-36.0 L [facility] CenterQtqwympKMXSKNUQYI3285-06-78 15:45:00 Test Item Value Reference Range Interpretation Comments MPV (test code = MPV) 8.0 7.4-10.4 N [facility] CenterFnlhbhzMQAIJHKSUM5805-51-98 15:45:00 Test Item Value Reference Range Interpretation Comments Eosinophils (test code = 0.1 See_Comment N [A utomated message] The Eosinophils) system which ge nerated this result tra nsmitted reference range : <=4.0. The reference r nilam was not used to int erpret this result as normal/abnormal . [facility] CenterAmmrnlgDOAJIGWETG3377-49-82 15:45:00 Test Item Value Reference Range Interpretation Comments Basophils (test code = 0.0 See_Comment N [Aut omated message] The Basophils) system which ge nerated this result tra nsmitted reference range : <=1.0. The reference r nilam was not used to int erpret this result as normal/abnormal . [facility] CenterJttpiybOOBTKPRDUP5088-11-79 15:45:00 Test Item Value Reference Range Interpretation Comments Target Cell (test code Slight A = Target Cell) *ABN*(03/07/2013 09:45:00) [facility] CenterYgrxwmxZKDXQOJKIP9811-46-57 15:45:00 Test Item Value Reference Range Interpretation Comments Elliptocyte (test code = Slight A Elliptocyte) *ABN*(03/07/2013 09:45:00) [facility] CenterUxnesqpJGTJGNJYXC9095-76-09 15:45:00 Test Item Value Reference Range Interpretation Comments Plt Morph (test code = Normal (03/07/2013 N Plt Morph) 09:45:00) [facility] CenterEfeoypgFSYHASLWQJ7193-89-25 15:45:00 Test Item Value Reference Range Interpretation Comments Basophils # (test code 0.0 See_Comment N [Aut omated message] The = Basophils #) system which generated this result tra nsmitted reference range : <=0.2. The reference r nilam was not used to int erpret this result as normal/abnormal . [facility] CenterTdwdqvvJDMPREGEPN4400-50-12 15:45:00 Test Item Value Reference Range Interpretation Comments Microcyte (test code = 1+ *ABN*(03/07/2013 A Microcyte) 09:45:00) [facility] CenterQchkeiaDXYTSGWEJS5329-58-06 15:45:00 Test Item Value Reference Range Interpretation Comments Lymphocytes # (test code = Lymphocytes 0.2 1.0-5.5 L #) [facility] CenterMoghowxFGXBDUZXGU5422-99-37 15:45:00 Test Item Value Reference Range Interpretation Comments Eosinophils # (test code 0.0 See_Comment N [A utomated message] The = Eosinophils #) system whic h generated this result tra nsmitted reference range : <=0.5. The reference r nilam was not used to int erpret this result as normal/abnormal . [facility] CenterLhvqcmrMUWJOOTBKO6653-40-23 15:45:00 Test Item Value Reference Range Interpretation Comments Monocytes # (test code 0.4 See_Comment N [Aut omated message] The = Monocytes #) system which generated this result tra nsmitted reference range : <=0.8. The reference r nilam was not used to int erpret this result as normal/abnormal . [facility] CenterKbevjxyWTFVSTCGII7001-03-17 15:45:00 Test Item Value Reference Range Interpretation Comments Segs-Bands # (test code = Segs-Bands #) 6.7 1.5-8.1 N [facility] CenterLihklqgCJJRIMDJVV3529-67-54 15:45:00 Test Item Value Reference Range Interpretation Comments Segs (test code = Segs) 91.4 45.0-75.0 H [facility] CenterTpgcvbmBZCREMKMML4611-19-54 15:45:00 Test Item Value Reference Range Interpretation Comments Lymphocytes (test code = Lymphocytes) 3.3 20.0-40.0 L [facility] CenterYfnmqhuEUBEJRUMWJ3279-08-33 15:45:00 Test Item Value Reference Range Interpretation Comments Monocytes (test code = Monocytes) 5.2 2.0-12.0 N [facility] CenterBgnmxenHDOIQQIPNS6496-18-82 15:45:00 Test Item Value Reference Range Interpretation Comments Polychrom (test code = Slight (03/07/2013 N Polychrom) 09:45:00) [facility] CenterIuxygtlQIOGVRFTEC0178-41-26 15:45:00 Test Item Value Reference Range Interpretation Comments Hypochrom (test code = Slight (03/07/2013 N Hypochrom) 09:45:00) [facility] CenterEljldjkIYEDTIWLFH4656-09-36 15:45:00 Test Item Value Reference Range Interpretation Comments RBC X 10x6 (test code = RBC X 10x6) 3.99 4.20-5.40 L [facility] CenterGmewtdzDCFGPFEFIY3444-28-96 15:45:00 Test Item Value Reference Range Interpretation Comments Hgb (test code = Hgb) 8.3 12.0-16.0 L [facility] CenterWwkcpqmIGBMOADYPE3745-53-72 15:45:00 Test Item Value Reference Range Interpretation Comments WBC X 10x3 (test code = WBC X 10x3) 7.3 3.7-10.4 N [place] [address]-12-13 15:45:00 Test Item Value Reference Range Interpretation Comments Platelet (test code = Platelet) 305 133-450 N [facility] CenterYrxdfgcLMDJDJEACI5660-35-85 15:45:00 Test Item Value Reference Range Interpretation Comments RDW (test code = RDW) 17.9 11.5-14.5 [facility] CenterWrcdsltPHDKUDPSTQ8083-81-17 15:45:00 Test Item Value Reference Range Interpretation Comments Hct (test code = Hct) 26.1 36.0-48.0 L [facility] CenterLjpokokPQIDWMBPEX0212-30-77 15:45:00 Test Item Value Reference Range Interpretation Comments MCH (test code = MCH) 20.7 pg 27.0-31.0 L [facility] CenterDzputlvDPZCHBSZYF3395-53-16 15:45:00 Test Item Value Reference Range Interpretation Comments MCV (test code = MCV) 65.4 81.0-99.0 L [facility] CenterJgeizafNXXPNYTTDM2501-60-89 15:45:00 Test Item Value Reference Range Interpretation Comments MCHC (test code = MCHC) 31.7 32.0-36.0 L [facility] CenterKuzljiiYDWHUDPCIS4910-22-71 15:45:00 Test Item Value Reference Range Interpretation Comments MPV (test code = MPV) 8.0 7.4-10.4 N [facility] CenterXbboujcUWAMLASFPA0385-02-68 15:45:00 Test Item Value Reference Range Interpretation Comments Eosinophils (test code = 0.1 See_Comment N [A utomated message] The Eosinophils) system which ge nerated this result tra nsmitted reference range : <=4.0. The reference r nilam was not used to int erpret this result as normal/abnormal . [facility] CenterMgzyfpgVTHYIDMWPN0691-26-86 15:45:00 Test Item Value Reference Range Interpretation Comments Basophils (test code = 0.0 See_Comment N [Aut omated message] The Basophils) system which ge nerated this result tra nsmitted reference range : <=1.0. The reference r nilam was not used to int erpret this result as normal/abnormal . [facility] CenterQxozkxxRJZMJJEIFQ6578-37-88 15:45:00 Test Item Value Reference Range Interpretation Comments Target Cell (test code Slight A = Target Cell) *ABN*(03/07/2013 09:45:00) [facility] CenterEyuyvjqOFIIOBISJL1887-66-12 15:45:00 Test Item Value Reference Range Interpretation Comments Elliptocyte (test code = Slight A Elliptocyte) *ABN*(03/07/2013 09:45:00) [facility] CenterOewgdpgEHOFGBBIQR5546-87-97 15:45:00 Test Item Value Reference Range Interpretation Comments Plt Morph (test code = Normal (03/07/2013 N Plt Morph) 09:45:00) [facility] CenterOsrhrbgDOWZRDFUEL9423-05-19 15:45:00 Test Item Value Reference Range Interpretation Comments Basophils # (test code 0.0 See_Comment N [Aut omated message] The = Basophils #) system which generated this result tra nsmitted reference range : <=0.2. The reference r nilam was not used to int erpret this result as normal/abnormal . [facility] CenterZwjcmcpCISQNPMWHT8265-95-17 15:45:00 Test Item Value Reference Range Interpretation Comments Microcyte (test code = 1+ *ABN*(03/07/2013 A Microcyte) 09:45:00) [facility] CenterLhjghtgFYZZKWPGEW7185-01-67 15:45:00 Test Item Value Reference Range Interpretation Comments Lymphocytes # (test code = Lymphocytes 0.2 1.0-5.5 L #) [facility] CenterSnjxewlOQRKAXOAKF0039-22-12 15:45:00 Test Item Value Reference Range Interpretation Comments Eosinophils # (test code 0.0 See_Comment N [A utomated message] The = Eosinophils #) system whic h generated this result tra nsmitted reference range : <=0.5. The reference r nilam was not used to int erpret this result as normal/abnormal . [facility] CenterPsjsfhtQSYKBPAMQC7801-88-64 15:45:00 Test Item Value Reference Range Interpretation Comments Monocytes # (test code 0.4 See_Comment N [Aut omated message] The = Monocytes #) system which generated this result tra nsmitted reference range : <=0.8. The reference r nilam was not used to int erpret this result as normal/abnormal . [facility] CenterDjvuhqjNZTKUAQPAY2737-84-35 15:45:00 Test Item Value Reference Range Interpretation Comments Segs-Bands # (test code = Segs-Bands #) 6.7 1.5-8.1 N [facility] CenterIouffzxLQEVBEQFXR0621-08-72 15:45:00 Test Item Value Reference Range Interpretation Comments Segs (test code = Segs) 91.4 45.0-75.0 H [facility] CenterOjiyqxuDMZLGFRYCJ9250-21-20 15:45:00 Test Item Value Reference Range Interpretation Comments Lymphocytes (test code = Lymphocytes) 3.3 20.0-40.0 L [facility] CenterLqgunbtZSEHHOULNQ4319-22-60 15:45:00 Test Item Value Reference Range Interpretation Comments Monocytes (test code = Monocytes) 5.2 2.0-12.0 N [facility] CenterIejenrxMTNDSBGWWI1294-14-16 15:45:00 Test Item Value Reference Range Interpretation Comments Polychrom (test code = Slight (03/07/2013 N Polychrom) 09:45:00) [facility] CenterPqautpqCADSPMSVYH9167-30-44 15:45:00 Test Item Value Reference Range Interpretation Comments Hypochrom (test code = Slight (03/07/2013 N Hypochrom) 09:45:00) [facility] CenterVvgcvltQTTFAHHFIV9926-82-07 15:45:00 Test Item Value Reference Range Interpretation Comments RBC X 10x6 (test code = RBC X 10x6) 3.99 4.20-5.40 L [facility] CenterCrosoniSMVJEFWTZW8147-09-96 15:45:00 Test Item Value Reference Range Interpretation Comments Hgb (test code = Hgb) 8.3 12.0-16.0 L [facility] CenterEktwyaqOOEDLDXHVY5065-73-04 15:45:00 Test Item Value Reference Range Interpretation Comments WBC X 10x3 (test code = WBC X 10x3) 7.3 3.7-10.4 N [facility] CenterXrikpbiQGRYEAZQDR9175-80-38 15:45:00 Test Item Value Reference Range Interpretation Comments Platelet (test code = Platelet) 305 133-450 N [facility] CenterCwztggcYIXKEDCBRU9119-46-37 15:45:00 Test Item Value Reference Range Interpretation Comments RDW (test code = RDW) 17.9 11.5-14.5 H [facility] CenterRzuqujuQYTZWDFASX7411-33-64 15:45:00 Test Item Value Reference Range Interpretation Comments Hct (test code = Hct) 26.1 36.0-48.0 L [facility] CenterRyzastxQYUCTWBBAR4152-02-58 15:45:00 Test Item Value Reference Range Interpretation Comments MCH (test code = MCH) 20.7 pg 27.0-31.0 L [facility] CenterEvnoqjcSXUISRCGXO6117-29-13 15:45:00 Test Item Value Reference Range Interpretation Comments MCV (test code = MCV) 65.4 81.0-99.0 L [facility] CenterEmgnaueNVNJMVTBDU1677-25-26 15:45:00 Test Item Value Reference Range Interpretation Comments MCHC (test code = MCHC) 31.7 32.0-36.0 L [facility] CenterYpbrralOJHGWJOCJC6417-20-15 15:45:00 Test Item Value Reference Range Interpretation Comments MPV (test code = MPV) 8.0 7.4-10.4 N [facility] CenterOazurkuWHYOQCGNSD1606-29-96 15:45:00 Test Item Value Reference Range Interpretation Comments Eosinophils (test code = 0.1 See_Comment N [A utomated message] The Eosinophils) system which ge nerated this result tra nsmitted reference range : <=4.0. The reference r nilam was not used to int erpret this result as normal/abnormal . [facility] CenterGcgdohgPSXOSFSQNP9164-72-41 15:45:00 Test Item Value Reference Range Interpretation Comments Basophils (test code = 0.0 See_Comment N [Aut omated message] The Basophils) system which ge nerated this result tra nsmitted reference range : <=1.0. The reference r nilam was not used to int erpret this result as normal/abnormal . [facility] CenterAgvfbioJGFJEDSMJS6190-94-33 15:45:00 Test Item Value Reference Range Interpretation Comments Target Cell (test code Slight A = Target Cell) *ABN*(03/07/2013 09:45:00) [facility] CenterAyaznawRBEUDIXAPX1598-33-31 15:45:00 Test Item Value Reference Range Interpretation Comments Elliptocyte (test code = Slight A Elliptocyte) *ABN*(03/07/2013 09:45:00) [facility] CenterMhxgvauAUSQGPNUBQ4887-58-97 15:45:00 Test Item Value Reference Range Interpretation Comments Plt Morph (test code = Normal (03/07/2013 N Plt Morph) 09:45:00) [facility] CenterGrzctorHWLXAZSHBU1101-58-39 15:45:00 Test Item Value Reference Range Interpretation Comments Basophils # (test code 0.0 See_Comment N [Aut omated message] The = Basophils #) system which generated this result tra nsmitted reference range : <=0.2. The reference r nilam was not used to int erpret this result as normal/abnormal . [facility] CenterDikgguaHUMWXKHKNB0107-01-93 15:45:00 Test Item Value Reference Range Interpretation Comments Microcyte (test code = 1+ *ABN*(03/07/2013 A Microcyte) 09:45:00) [facility] CenterWtreusxZJFCAZVDMO9142-02-13 15:45:00 Test Item Value Reference Range Interpretation Comments Lymphocytes # (test code = Lymphocytes 0.2 1.0-5.5 L #) [facility] CenterRrizgolPBJYXKSJRD0894-48-82 15:45:00 Test Item Value Reference Range Interpretation Comments Eosinophils # (test code 0.0 See_Comment N [A utomated message] The = Eosinophils #) system whic h generated this result tra nsmitted reference range : <=0.5. The reference r nilam was not used to int erpret this result as normal/abnormal . [facility] CenterFzqranvPGTQNSWUNR4871-21-09 15:45:00 Test Item Value Reference Range Interpretation Comments Monocytes # (test code 0.4 See_Comment N [Aut omated message] The = Monocytes #) system which generated this result tra nsmitted reference range : <=0.8. The reference r nilam was not used to int erpret this result as normal/abnormal . [facility] CenterCaewfweSVSWHDBWQB7042-55-86 15:45:00 Test Item Value Reference Range Interpretation Comments Segs-Bands # (test code = Segs-Bands #) 6.7 1.5-8.1 N [facility] CenterFmkrjacAGDARSMSDO8792-96-73 15:45:00 Test Item Value Reference Range Interpretation Comments Segs (test code = Segs) 91.4 45.0-75.0 H [facility] CenterMirfqpkSVXBVCXLQL4554-70-80 15:45:00 Test Item Value Reference Range Interpretation Comments Lymphocytes (test code = Lymphocytes) 3.3 20.0-40.0 L [facility] CenterNavjgqaBZWKTKMOEF3306-39-38 15:45:00 Test Item Value Reference Range Interpretation Comments Monocytes (test code = Monocytes) 5.2 2.0-12.0 N [facility] CenterYfvlmjjPBXUKXODFY3366-59-11 15:45:00 Test Item Value Reference Range Interpretation Comments Polychrom (test code = Slight (03/07/2013 N Polychrom) 09:45:00) [facility] CenterDmkvbnxIVUVTDPIDN8381-46-24 15:45:00 Test Item Value Reference Range Interpretation Comments Hypochrom (test code = Slight (03/07/2013 N Hypochrom) 09:45:00) [facility] CenterTismvrcGQLQFZBCFL8770-95-96 15:45:00 Test Item Value Reference Range Interpretation Comments RBC X 10x6 (test code = RBC X 10x6) 3.99 4.20-5.40 L [facility] CenterQhexpfoTXTDOWPZYV0145-50-95 15:45:00 Test Item Value Reference Range Interpretation Comments Hgb (test code = Hgb) 8.3 12.0-16.0 L [facility] CenterRhlemwcSXPGHJVFHJ1795-49-51 15:45:00 Test Item Value Reference Range Interpretation Comments WBC X 10x3 (test code = WBC X 10x3) 7.3 3.7-10.4 N [facility] CenterRqtciilMYJEYVNIYJ9571-16-44 15:45:00 Test Item Value Reference Range Interpretation Comments Platelet (test code = Platelet) 305 133-450 N [facility] CenterVckbmqkTSDALHAEHM5171-75-80 15:45:00 Test Item Value Reference Range Interpretation Comments RDW (test code = RDW) 17.9 11.5-14.5 H [facility] CenterAorxwgeZQYHPEVZTA3574-00-20 15:45:00 Test Item Value Reference Range Interpretation Comments Hct (test code = Hct) 26.1 36.0-48.0 L [facility] CenterQlsiushFGWDLSSFBC8936-79-40 15:45:00 Test Item Value Reference Range Interpretation Comments MCH (test code = MCH) 20.7 pg 27.0-31.0 L [facility] CenterJwliekwGWIMCIAVTI1019-01-00 15:45:00 Test Item Value Reference Range Interpretation Comments MCV (test code = MCV) 65.4 81.0-99.0 L [facility] CenterXwfdbwlUHOFVDIOKR5289-57-18 15:45:00 Test Item Value Reference Range Interpretation Comments MCHC (test code = MCHC) 31.7 32.0-36.0 L [facility] CenterRcbbctqQPIKOSTEAW5302-86-94 15:45:00 Test Item Value Reference Range Interpretation Comments MPV (test code = MPV) 8.0 7.4-10.4 [facility]
[2022-02-06 12:27] LABS: Urine Blood Negative (Negative); Urine Glucose Negative (Negative); Urine Protein 1+ (Negative); Urine Specific Gravity 1.025 (1.005-1.030); Urine pH 6.5 (5.0-7.0)
[2022-02-06 12:32] LABS: Absolute Lymphocytes (CBC) 1.9 K/uL (0.7-4.9); Hematocrit 39.6 % (36.0-45.0); Lymphocytes % 38.5 % (15.3-44.8); MCV 87.9 fL (80-100)
[2022-02-06 12:46] LABS: Albumin 3.6 g/dL (3.4-5.0); Bilirubin Total 0.5 mg/dL (0.2-1.0); Potassium 4.1 mmol/L (3.5-5.1); Protein, Total 9.6 g/dL (6.4-8.2)
--- NOTE | 2022-02-06 13:06 | RAD REPORT ---
EXAM DESCRIPTION: CTAbdomen Pelvis W Contrast - 02/06/2022 12:56 pm CLINICAL HISTORY: Abdominal pain. abd distension COMPARISON: No comparisons TECHNIQUE: Biphasic CT imaging of the abdomen and pelvis was performed with 100 ml non-ionic IV cont rast. All CT scans are performed using dose optimization technique as appropriate and may include automated exposure control or mA/KV adjustment according to patient size. FINDINGS: The lung bases are clear. The liver, spleen, pancreas, adrenal glands and kidneys are within normal limits. Small calculi are s een inferior aspect of the left kidney. No bowel obstruction, free air, free fluid or abscess. Significant stool is retained throughout the c olon. The appendix is normal. No evidence of significant lymphadenopathy. Mild lumbosacral degenerative changes. IMPRESSION: Nonobstructing left renal stones are present. Significant stool is present retained throughout the colon.
--- NOTE | 2022-02-06 13:31 | EDPHYS ---
Physician Documentation [facility] Name: Roxana Sanchez Age: 46 yrs Sex: Female : 1975 Arrival Date: 02/06/2022 Time: 09:34 Bed 28 Private MD: ED Physician Missael Fraser HPI: 02/06 09:53 This 46 yrs old Black Female presents to ER via Unassigned with complaints of Abd rn bloating. 09:53 The patient presents with abdominal distention that is diffuse. Onset: The rn symptoms/episode began/occurred this morning. The symptoms do not radiate. Associated signs and symptoms: Pertinent negatives: nausea and vomiting, blood in stools, chest pain, constipation, diarrhea, dysuria, fever, hematuria, shortness of breath, vomiting. The symptoms are described as achy. Modifying factors: The symptoms are alleviated by nothing, the symptoms are aggravated by nothing. Severity of pain: At its worst the pain was mild in the emergency department the pain is unchanged. The patient has not experienced similar symptoms in the past. The patient has not recently seen a physician. Reports ate a salad last night, felt bloated since then, achy, no fever/vomiting/diarhea. NO blood in stool. . 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 - Social history:: Smoking status: Patient denies any tobacco usage or history of. Patient/guardian denies using alcohol. - Family history:: not pertinent. - Hospitalizations: : No recent hospitalization is reported. ROS: 09:53 Constitutional: Negative for fever, chills, and weight loss, Eyes: Negative for injury, rn pain, redness, and discharge, ENT: Negative for injury, pain, and discharge, Neck: Negative for injury, pain, and swelling, Cardiovascular: Negative for chest pain, palpitations, and edema, Respiratory: Negative for shortness of breath, cough, wheezing, and pleuritic chest pain, Abdomen/GI: + abd bloating Back: Negative for injury and pain, : Negative for injury, bleeding, discharge, and swelling, MS/Extremity: Negative for injury and deformity, Skin: Negative for injury, rash, and discoloration, Neuro: Negative for headache, weakness, numbness, tingling, and seizure. Exam: 09:53 Constitutional: This is a well developed, well nourished patient who is awake, alert, rn and in no acute distress. Head/Face: Normocephalic, atraumatic. Cardiovascular: Regular rate and rhythm. No pulse deficits. Respiratory: No increased work of breathing, no retractions or nasal flaring. Abdomen/GI: soft, non-tender Skin: Warm, dry MS/ Extremity: Pulses equal, no cyanosis. Neuro: Awake and alert, GCS 15 Vital Signs: 10:54 BP 139 / 96; Pulse 52; Resp 18; Temp 98.6(O); Pulse Ox 98% on R/A; Weight 89.36 kg; ld1 Height 5 ft. 5 in. (165.10 cm); Pain 0/10; 12:30 BP 124 / 88; Pulse 69; Resp 18; Pulse Ox 100% on R/A; em6 13:30 BP 112 / 79; Pulse 67; Resp 18; Pulse Ox 99% on R/A; em6 10:54 Body Mass Index 32.78 (89.36 kg, 165.10 cm) ld1 MDM: 09:42 Patient medically screened. rn 13:29 Differential diagnosis: appendicitis, bowel obstruction, diverticulitis, gastritis, rn non-specific abd pain, Peptic Ulcer Disease, Ureterolithiasis, urinary tract infection. Data reviewed: vital signs, nurses notes, lab test result(s), radiologic studies, CT scan, and as a result, I will discharge patient. Counseling: I had a detailed discussion with the patient and/or guardian regarding: the historical points, exam findings, and any diagnostic results supporting the discharge/admit diagnosis, lab results, radiology results, the need for outpatient follow up, to return to the emergency department if symptoms worsen or persist or if there are any questions or concerns that arise at home. Special discussion: Based on the patient's Hx, exam, and Dx evaluation, there is no indication for emergent surgery or inpatient Tx. It is understood by the patient/guardian that if the Sx's persist or worsen they need to return immediately for re-evaluation. I discussed with the patient/guardian in detail that at this point there is no indication for admission to the hospital. It is understood, however, that if the symptoms persist or worsen the patient needs to return immediately for re-evaluation. 02/06 09:50 Order name: CBC with Diff; Complete Time: 12:55 rn 02/06 09:50 Order name: CMP; Complete Time: 12:55 rn 02/06 09:50 Order name: Lipase; Complete Time: 12:55 rn 02/06 09:50 Order name: CT Abd/Pelvis - IV Contrast Only; Complete Time: 13:29 rn 02/06 09:50 Order name: IV Saline Lock; Complete Time: 12:22 rn 02/06 12:27 Order name: Urine Dipstick-Ancillary; Complete Time: 12:55 EDMS 02/06 09:50 Order name: Labs collected and sent; Complete Time: 12:22 rn Administered Medications: No medications were administered Disposition Summary: 02/06/22 13:30 Discharge Ordered Location: Home rn Problem: new rn Symptoms: have improved rn Condition: Stable rn Diagnosis - Constipation, unspecified rn - Abdominal distension (gaseous) rn Followup: rn - With: Private Physician - When: As needed - Reason: Recheck today's complaints, Re-evaluation by your physician Discharge Instructions: - Discharge Summary Sheet rn - Constipation, Adult rn Forms: - Medication Reconciliation Form rn - Thank You Letter rn - Antibiotic internal consultant - Prescription Opioid Use rn Signatures: Dispatcher [employer] Missael Feliciano MD MD rn Dibbern, Lauren, RN RN ld1
--- NOTE | 2022-02-06 13:31 | ER ---
Nurse's Notes [facility] Name: Roxana Sanchez Age: 46 yrs Sex: Female : 1975 Arrival Date: 02/06/2022 Time: 09:34 Bed 28 Private MD: Diagnosis: Constipation, unspecified;Abdominal distension (gaseous) Presentation: 02/06 10:49 Chief complaint: Patient states: Abdominal bloating X1 day. ld1 10:54 Coronavirus screen: At this time, the client does not indicate any symptoms associated ld1 with coronavirus-19. Ebola Screen: No symptoms or risks identified at this time. Initial Sepsis Screen: Does the patient meet any 2 criteria? No. Patient's initial sepsis screen is negative. Does the patient have a suspected source of infection? No. Patient's initial sepsis screen is negative. Risk Assessment: Do you want to hurt yourself or someone else? Patient reports no desire to harm self or others. Onset of symptoms was February 06, 2022. 10:54 Method Of Arrival: EMS: [facility] ld1 10:54 Acuity: DELMI 3 ld1 Triage Assessment: 10:55 General: Appears in no apparent distress. comfortable, Behavior is calm, cooperative, ld1 appropriate for age. Pain: Denies pain. EENT: No signs and/or symptoms were reported regarding the EENT system. Neuro: Level of Consciousness is awake, alert, obeys commands, Oriented to person, place, time, situation. Cardiovascular: Capillary refill < 3 seconds Patient's skin is warm and dry. Respiratory: Airway is patent Respiratory effort is even, unlabored. GI: Abdomen is flat, non-distended. GI: Reports bloating. : No signs and/or symptoms were reported regarding the genitourinary system. Derm: No signs and/or symptoms reported regarding the dermatologic system. Musculoskeletal: No signs and/or symptoms reported regarding the musculoskeletal system. 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 - Social history:: Smoking status: Patient denies any tobacco usage or history of. Patient/guardian denies using alcohol. - Family history:: not pertinent. - Hospitalizations: : No recent hospitalization is reported. Screenin:22 Abuse screen: Denies threats or abuse. Nutritional screening: No deficits noted. em6 Tuberculosis screening: No symptoms or risk factors identified. Fall Risk IV access (20 points). Total Markham Fall Scale indicates No Risk (0-24 pts). Assessment: 12:22 General: Appears in no apparent distress. Behavior is cooperative. Pain: Denies pain. em6 Neuro: Level of Consciousness is awake, alert, obeys commands, Oriented to person, place, time, situation. Cardiovascular: Patient's skin is warm and dry. Respiratory: Airway is patent Respiratory effort is even, unlabored, Respiratory pattern is regular, symmetrical, Breath sounds are clear bilaterally. GI: Abdomen is distended, Abdomen is tender to palpation X 4 quads. Reports lower abdominal pain, bloating, constipation. : No signs and/or symptoms were reported regarding the genitourinary system. EENT: No signs and/or symptoms were reported regarding the EENT system. Derm: No signs and/or symptoms reported regarding the dermatologic system. Musculoskeletal: Circulation, motion, and sensation intact. Range of motion: intact in all extremities. 13:22 Reassessment: Patient appears in no apparent distress at this time. No changes from em6 previously documented assessment. Patient and/or family updated on plan of care and expected duration. Pain level reassessed. Patient is alert, oriented x 3, equal unlabored respirations, skin warm/dry/pink. Vital Signs: 10:54 BP 139 / 96; Pulse 52; Resp 18; Temp 98.6(O); Pulse Ox 98% on R/A; Weight 89.36 kg; ld1 Height 5 ft. 5 in. (165.10 cm); Pain 0/10; 12:30 BP 124 / 88; Pulse 69; Resp 18; Pulse Ox 100% on R/A; em6 13:30 BP 112 / 79; Pulse 67; Resp 18; Pulse Ox 99% on R/A; em6 10:54 Body Mass Index 32.78 (89.36 kg, 165.10 cm) ld1 ED Course: 09:34 Patient arrived in ED. iw 09:42 Missael Fraser MD is Attending Physician. rn 10:55 Triage completed. ld1 10:55 Arm band placed on right wrist. EKG completed in triage. Results shown to MD. EKG ld1 completed in triage. Results shown to MD. 12:01 Deysi Juárez, RN is Primary Nurse. em6 12:22 Bed in low position. Call light in reach. Side rails up X 1. Pulse ox on. NIBP on. Warm em6 blanket given. 12:22 CBC with Diff Sent. em6 12:22 CMP Sent. em6 12:22 Lipase Sent. em6 12:22 Inserted saline lock: 22 gauge in right antecubital area, using aseptic technique. em6 Blood collected. 12:58 CT Abd/Pelvis - IV Contrast Only In Process Unspecified. EDMS 13:51 No provider procedures requiring assistance completed. IV discontinued, intact, em6 bleeding controlled, No redness/swelling at site. Pressure dressing applied. Administered Medications: No medications were administered Medication: 13:52 VIS not applicable for this client. em6 Outcome: 13:30 Discharge ordered by MD. rn 13:52 Discharged to home ambulatory, with family. em6 13:52 Condition: stable 13:52 Discharge instructions given to patient, Instructed on discharge instructions, follow up and referral plans. Demonstrated understanding of instructions, follow-up care. 13:52 Patient left the ED. em6 Signatures: Dispatcher [employer] EDMS Verito Sanchez, RN ELIJAH iw Missael Fraser MD MD rn Dibbern, Lauren, RN RN ld1 Deysi Juárez RN RN em6
[2022-02-06 14:10] VITALS: TEMP 98.6
[2022-02-06 14:23] VITALS: BP 112/79; O2SAT 99
== END 2022-02-06 13:52 | disposition home or self-care (01) ==
LOC: ER 09:31
DX: K59.00 Constipation, unspecified (principal); Z88.5 Allergy status to narcotic agent
CPT/HCPCS: 36415; 74177; 80053; 81003; 83690; 85025; 99284; Q9967

== ENCOUNTER 2022-02-09 05:25 | Emergency (ER) | payer SELFPAY ==
--- OUTSIDE RECORDS SUMMARY | 2022-02-09 06:27 | XMS REPORT | Continuity of Care Document ---
:1975 Author Organization [facility] t Address [address] [place] [address] Care Team Providers Name Role Phone EMILIANO Mercado [facility] Primary Care P hysician Unavailable CRISTAL [...] Effective Date Expiration Date S ource [facility] [place] [id number] 2018 WOMEN 00:00:00 MEDICAID PENDING PENDING 2021 00:00:00 Problems Condition Condition Condition Status Onset Resolution Last Treating Co mments Source Name Details Category Date Date Treatment Clinician Date PANIC PANIC Diagnosis Active 2018-06-23 Mem oria ATTACK ATTACK 1-16 10:12:00 l Active 00:00: Arthur 04/10/2018 [facility] HEART HEART Diagnosis Active 2018-06-17 Me moria PROBLEMS PROBLEMS 1-04 21:29:00 l Active 00:00: [place] 03/29/2018 [facility] SOB WEAK SOB WEAK Diagnosis Active 2018-07-04 Memoria Active 11-16 16:41:00 l 11/16/2017 00:00: Cheko tyler [facility] 00 [place] DIZZY/ DIZZY/ Diagnosis Active 2018-06-20 Me moria WEAKNESS WEAKNESS 10-31 19:28:00 l Active 00:00: [place] 10/31/2017 00 [facility] CHEST PAIN CHEST Diagnosis Active 2018-06-23 Memoria PAIN 10-25 10:12:00 l Active 00:00: Arthur 10/25/2017 00 [facility] ABD PAIN ABD PAIN Diagnosis Active 2018-06-20 Memoria AND BACKK AND BACKK 10-13 19:28:00 l PAIN PAIN 00:00: [place] Active 00 10/13/2017 [facility] UTERINE UTERINE Diagnosis Active 2016-05-01 Memoria FIBROIDS-D FIBROIDS-D 04-24 11:50:00 l 25.9/ 25.9/ 00:00: Arthur MENORRHAGI MENORRHAGI 00 A-N92.0/ A-N92.0/ DYSMENORRH DYSMENORRH EA-N94 EA-N94 Active 04/24/2016 [facility] FEVER FEVER Diagnosis Active 2015-032016-03-17 Mem oria Active 05-18 16:45:00 l 03/17/2016 00:00: Cheko tyler [facility] 00 [place] ARM PAIN ARM PAIN Diagnosis Active 2015-10-04 Memoria Active 08-02 06:03:00 l 08/03/2015 00:00: Cheko tyler 00 [facility] SHORTNESS SHORTNESS Diagnosis Active 2015-04-07 Memoria OF BREATH OF BREATH 04-07 10:14:00 l Active 00:00: [place] 04/07/[address] [facility] CHEST CHEST Diagnosis Active 2014-11-25 Mem oria PAIN, PAIN, 11-05 16:15:00 l ANEMIA ANEMIA 00:00: Arthur Active 00 11/05/2014 [facility] SOB SOB Diagnosis Active 2012-032013-03-07 Mem oria Active 05-08 10:30:00 l 03/07/2013 00:00: Cheko tyler 00 [facility] VOMITING VOMITING Diagnosis Active 2012-032013-03-07 Memoria Active 05-08 15:44:00 l 03/07/2013 00:00: Cheko tyler 00 [facility] MOUTH PAIN MOUTH Diagnosis Active 2012-04-04 Memoria PAIN 1-09 02:18:00 l Active 00:00: Arthur 04/03/[address] [facility] No known No known Disease Unive rs active active ity of problems problems [facility] Weakness Weakness Problem 2018-10-28 Memoria 10/28/2018 15:48:36 l Florence Avina [facility] Major Major Problem 2018-10-28 Memor ia depressive depressive 15:48:36 l disorder, disorder, Herm stevie single single episode, episode, unspecifie unspecifie d d 10/28/2018 [facility] Allergy Allergy Problem 2018-10-28 Me moria status to status to 15:48:36 l narcotic narcotic Cheko n agent agent status status 10/28/2018 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 Anemia, Anemia, Problem 2018-06-06 Ne moria unspecifie unspecifie 12:26:54 l d d Arthur 06/06/2018 [facility] Essential Problem 2018-05-02 Ne moria (primary) Essential 13:32:53 l hypertensi (primary) Her szymanski on hypertensi on 05/02/2018 [facility] Altered Altered Problem 2018-05-20 Me moria mental mental 16:43:34 l status, status, Arthur unspecifie unspecifie d d 05/20/2018 [facility] Hyperlipid Hyperlipi Problem Resolve 2018-10-28 Memoria emia demia d 15:48:36 l (disorder) (disorder) He rmann Resolved Problem 10/28/2018 [facility], [facility] None None Problem Resolve 2018-10-28 Yamil brandi (qualifier (qualifier d 15:48:36 l value) value) [place] Resolved Problem 10/28/2018 [facility], [facility], [facility] Anemia Anemia Problem Active 2018-10-28 Yamil brandi (disorder) (disorder) 15:48:36 l Active [place] Problem 10/28/2018 [facility], [facility] Dysmenorrh Dysmenorr Problem Active 2018-10-28 Memoria ea hea 15:48:36 l (disorder) (disorder) He rmann Active Problem 10/28/2018 [facility], [facility] Menorrhagi Problem Active 2018-10-28 M emoria a Menorrhagi 15:48:36 l (finding) a [place] (finding) Active Problem 10/28/2018 [facility], [facility] Uterine Uterine Problem Active 2018-10-28 Me moria leiomyoma leiomyoma 15:48:36 l (disorder) (disorder) He rmann Active Problem 10/28/2018 [facility], [facility] History of Past Illness Condition Condition Condition Status Onset Resolution Last Treating Co mments Source Name Details Category Date Date Treatment Clinician Date Anxiety Anxiety Problem 2018-10-28 2018-10-28 Memoria disorder, disorder, - 15:48:36 15:48:36 l unspecifie unspecifie 06:00: He rmann d d 00 04/10/[address] [facility] Chest Chest Problem 2018-10-16 2018-10-16 M emoria pain, pain, - 15:24:24 15:24:24 l unspecifie unspecifie 06:00: He rmann d d 00 03/29/2018 9 [facility] Myalgia Myalgia Problem 2018-06-06 2018-06-06 Memoria 11/17/201711-17 12:26:54 12:26:54 l 06/06/2018 05:00: Cheko tyler [address] Shortness Shortness Problem 2018-06-06 2018-06-06 Memoria of breath of breath 11-17 12:26:54 12:26:54 l 11/17/2017 05:00: Cheko tyler 06/06/2018 00 [facility] Disorienta Problem 2018-05-20 2018-05-20 Memoria Germain schererorienta 10-31 16:43:34 16:43:34 l unspecifie tion, 05:00: Cheko sol unspecifie 00 d 10/31/2017 05/20/2018 [facility] Gastro-eso Gastro-es Problem 2018-05-15 2018-05-15 Memoria phageal ophageal 10-26 15:12:19 15:12:19 l reflux reflux 05:00: Arthur disease disease 00 without without esophagiti esophagiti s s 10/26/[address] [facility] Calculus Calculus Problem 2018-05-02 2018-05-02 Memoria of ureter of ureter 10-13 13:32:53 13:32:53 l 10/13/2017 05:00: Cheko tyler 05/02/2018 00 [facility] Unspecifie Unspecifi Problem 2018-05-02 2018-05-02 Memoria d renal ed renal 10-13 13:32:53 13:32:53 l colic colic 05:00: Arthur 10/13/2017 00 05/02/2018 [facility] Discharge Problem 2015-032016-03-20 2016-03-20 Memoria Diagnosis: Discharge 05-18 04:09:49 04:09:49 l Acute URI Diagnosis: 06:00: Her szymanski Acute URI 00 03/17/2016 03/20/2016 [facility] Discharge Problem 2015-032016-03-20 2016-03-20 Memoria Diagnosis: Discharge 05-18 04:09:49 04:09:49 l Acute UTI Diagnosis: 06:00: Her szymanski Acute UTI 00 03/17/2016 03/20/2016 [facility] Discharge Discharge Problem 2015-08-06 2015-08-06 Memoria Diagnosis: Diagnosis: 08-02 04:50:15 04:50:15 l Pain, arm, Pain, arm, 05:00: He rmann right right 00 08/03/2015 08/06/2015 [facility] Discharge Discharge Problem 2014-11-06 2014-11-06 Memoria Diagnosis: Diagnosis: 11-03 07:57:24 07:57:24 l Microcytic Microcytic 05:00: He stevie anemia anemia 00 11/03/2014 11/06/2014 [facility] Discharge Discharge Problem 2014-11-06 2014-11-06 Meminderjit Diagnosis: Diagnosis: 11-03 07:57:24 07:57:24 l Chest pain Chest pain 05:00: He rmann 11/03/201411/06/2014 [facility] Allergies, Adverse Reactions, Alerts Allergy [...] Source Exposure to 2021-10-08 2021-10-18 Not sure [facility] SARS-CoV-2 00:00:00 12:20:00 [facility] (event) Branch Alcohol intake 2021-10-18 2021-10-18 Current University of 00:00:00 00:00:00 non-drinker of [facility] alcohol (finding) Branch Tobacco use and 2017-07-13 2017-07-13 Smokeless tobacco Un iversity of exposure 00:00:00 00:00:00 non-user [facility] Social History 2015-08-03 2015-08-03 [facility] 14:56:09 14:56:09 Sex Ass[birth year] At [birth year] Universit [facility] of 00:00:00 00:00:00 [facility] Smoking Status Start Date Stop Date Source Never smoked tobacco [facility] Medications Ordered Filled Start Stop Current Ordering Indication Dosage Frequency Signature Comments Components Source Medication Medication Date Date Medication? Clinician (SIG) Name Name ibuprofen No 600mg 600 mg, Uni vers (IBU) 7-26 07-26 Oral, ity of tablet 600 15:45: 16:12 ONCE, 1 Eddie as mg 00 :00 dose, On [facility] Branch 10/18/21 at 1045, MESSI [...] Unknown 09-29 00:00: 00 iopamidol 2021- No [id number] 70mL 70 mL, Univers (ISOVUE 09-24 Intravenou ity o f 370-500 mL) 17:17: 17:30 s, ONCE, 1 [place] injection 00 :00 dose, On Medica l 70 mL 09/24/21 Branch at 1230, Routine dicyclomine Yes [id number] 20mg Take 1 Univers 20 mg 7-02 tablet by ity of tablet 00:00: mouth 4 [place] 00 (four) Medical times Branch daily. docusate Yes [id number] 250mg Take 1 U nivers sodium 250 7- capsule by ity of mg capsule 00:00: mouth once [place] 00 daily as Medical needed for Branch Constipati on. ondansetron Yes [id number] 4mg Take 1 Univers 4 mg 7-02 tablet by ity of disintegrat 00:00: mouth [place] ing tablet 00 every 4 Medica l (four) Branch hours as needed for Nausea and Vomiting (N/V). dicyclomine 2-0 Yes [id number] 20mg Take 1 Univers 20 mg 7-02 tablet by ity of tablet 00:00: mouth 4 [place] 00 (four) Medical times Branch daily. docusate 2022-0 Yes [id number] 250mg Take 1 U nivers sodium 250 7-02 capsule by ity of mg capsule 00:00: mouth once [place] 00 daily as Medical needed for Branch Constipati on. ondansetron 2021-0 Yes [id number] 4mg Take 1 Univers 4 mg 7-02 [...] of Therapy: 7 days cephALEXin 2021- No [id number] 500mg Take 1 Univers (KEFLEX) 04-10 capsule [...] 2215, Until Discontinu ed, Routine naproxen Yes [id number] 550mg Take 1 U nivers sodium 550 6-18 tablet by ity of mg tablet 00:00: mouth (two) Medical times Branch daily with meals. naproxen Yes [id number] 550mg Take 1 U nivers sodium 550 6-18 tablet by ity of mg tablet 00:00: mouth (two) Medical times Branch daily with meals. naproxen 2020-0 Yes [id number] 550mg Take 1 U nivers sodium 550 6-18 tablet by ity of mg tablet 00:00: mouth (two) Medical times Branch daily with meals. naproxen Yes [id number] 550mg Take 1 U nivers sodium 550 6-18 tablet by ity of mg tablet 00:00: mouth (two) Medical times Branch daily with meals. naproxen Yes [id number] 550mg Take 1 U nivers sodium 550 -18 tablet by ity of mg tablet 00:00: mouth 2 00 (two) Medical times Branch daily with meals. acetaminoph 2020- No 650mg 650 mg, U nivers en 05-05 Oral, ity of (TYLENOL) 22:45: 21:36 ONCE, 1 [place] tablet 650 00 :00 dose, Wed Medi liz mg 05/05/20 at Branch 1645, MESSI cephALEXin 2020- No [id number] 500mg Take 1 Univers 500 mg 05-05 [...] gram/6 gram 00:00: oral powder 00 psyllium 2018-0 No 30mg/0. husk 6 8-30 65 mL gram/6 gram 00:00: oral powder 00 ibuprofen 2018-0 No 800 mg = 1 [...] Chloride 8-25 1000 l 0.9% 03:04: ml/hr, [place] (Bolus) IV 00 Infuse Over: 1 hr, Route: IV, 1,000, Drug form: INJ, ONCE, Priority: STAT, Dosing Weight 68.182 kg, Start date: 11/16/17 22:04:00 CDT, Stop date: 11/16/17 22:04:00 CDT Saline No Notes: Memoria Flush 0.9% 8-25 (Same as: l 03:01: BD [place] Posiflush) Saline No Notes: Memoria Flush 0.9% 8-25 (Same as: l 03:01: BD [place] Posiflush) Saline No Notes: Memoria Flush 0.9% 8-25 (Same as: l 03:01: BD [place] Posiflush) Saline No Notes: Memoria Flush 0.9% 8-25 (Same as: l 03:01: BD Arthur Posiflush) Saline No Notes: Memoria Flush 0.9% 8-25 (Same as: l 03:01: BD Arthur Posiflush) Saline No Notes: Memoria Flush 0.9% 8-25 (Same as: l 03:01: BD [place] Posiflush) Saline No Notes: Memoria Flush 0.9% 8-25 (Same as: l 03:01: BD [place] Posiflush) hydroxyzine No 1mg HCl 50 mg [...] 0.9% 8-08 (Same as: l 20:09: BD [place] 00 Posiflush) Saline No Notes: Memoria Flush 0.9% 8-08 (Same as: l 20:09: BD [place] 00 Posiflush) Saline No Notes: Memoria Flush 0.9% 8-08 (Same as: l 20:09: BD Arthur 00 Posiflush) Saline No Notes: Memoria Flush 0.9% 8-08 (Same as: l 20:09: BD [place] 00 Posiflush) Saline No Notes: Memoria Flush 0.9% 8-08 (Same as: l 20:09: BD [place] 00 Posiflush) Saline No Notes: Memoria Flush 0.9% 8-08 (Same as: l 20:09: BD [place] 00 Posiflush) Maalox No Notes: Memoria Regular 10-26 (Same As: l Strength 14:00: Tums) Arthur TAB 00 Calcium Carbonate 500 mg = 200 mg elemental calcium Dose = mg calcium carbonate ( mg elemental calcium) Maalox No Notes: Memoria Regular 10-26 (Same As: l Strength 14:00: Tums) [place] TAB 00 Calcium Carbonate 500 mg = 200 mg elemental calcium Dose = mg calcium carbonate ( mg elemental calcium) Maalox No Notes: Memoria Regular 10-26 (Same As: l Strength 14:00: Tums) [place] TAB 00 Calcium Carbonate 500 mg = 200 mg elemental calcium Dose = mg calcium carbonate ( mg elemental calcium) Maalox No Notes: Memoria Regular 10-26 (Same As: l Strength 14:00: Tums) [place] TAB 00 Calcium Carbonate 500 mg = 200 mg elemental calcium Dose = mg calcium carbonate ( mg elemental calcium) Maalox No Notes: Memoria Regular 10-26 (Same As: l Strength 14:00: Tums) [place] TAB 00 Calcium Carbonate 500 mg = 200 mg elemental calcium Dose = mg calcium carbonate ( mg elemental calcium) Maalox 2018-0 No Notes: Memoria Regular 10-26 (Same As: l Strength 14:00: Tums) Arthur TAB 00 Calcium Carbonate 500 mg = 200 mg elemental calcium Dose = mg calcium carbonate ( mg elemental calcium) Maalox 2017- No Notes: Memoria Regular 10-26 (Same As: l Strength 14:00: Tums) Arthur TAB 00 Calcium Carbonate 500 mg = 200 mg elemental calcium Dose = mg calcium carbonate ( mg elemental calcium) Famotidine 2017- Yes 40 mg = 1 Me moria 40 MG Oral 8-03 tab, PO, l Tablet 07:23: Daily, # [place] [Pepcid] 00 30 tab, 0 Refill(s) Famotidine 2018-0 Yes 40 mg = 1 Me moria 40 MG Oral 8-03 tab, PO, l Tablet 07:23: Daily, # [place] [Pepcid] 00 30 tab, 0 Refill(s) Famotidine 2018- Yes 40 mg = 1 Me moria 40 MG Oral 8-03 tab, PO, l Tablet 07:23: Daily, # Arthur [Pepcid] 00 30 tab, 0 Refill(s) Famotidine 2018-0 Yes 40 mg = 1 Me moria 40 MG Oral 8-03 tab, PO, l Tablet 07:23: Daily, # [place] [Pepcid] 00 30 tab, 0 Refill(s) Famotidine 2018-0 Yes 40 mg = 1 Me moria 40 MG Oral 8-03 tab, PO, l Tablet 07:23: Daily, # Arthur [Pepcid] 00 30 tab, 0 Refill(s) Famotidine 2018-0 Yes 40 mg = 1 Me moria 40 MG Oral 8-03 tab, PO, l Tablet 07:23: Daily, # [place] [Pepcid] 00 30 tab, 0 Refill(s) Famotidine 2018-0 Yes 40 mg = 1 Me moria 40 MG Oral 8-03 tab, PO, l Tablet 07:23: Daily, # [place] [Pepcid] 00 30 tab, 0 Refill(s) Lidocaine 2017-0 No Notes: Memori a Viscous 2% 10-26 [...] Memoria 8-03 (Same as: l 06:17: Reglan) [place] Reglan No Notes: Memoria 8-03 (Same as: l 06:17: Reglan) [place] Reglan No Notes: Memoria 8-03 (Same as: l 06:17: Reglan) Arthur Reglan No Notes: Memoria 8-03 (Same as: l 06:17: Reglan) Arthur 00 Maalox No Notes: Memoria Regular 8-03 (Same As: l Strength 06:12: Tums) [place] TAB 00 Calcium Carbonate 500 mg = 200 mg elemental calcium Dose = mg calcium carbonate ( mg elemental calcium) Maalox No Notes: Memoria Regular 8-03 (Same As: l Strength 06:12: Tums) Arthur [...] 10-26 (Same As: l Strength 06:12: Tums) [place] TAB 00 Calcium Carbonate 500 mg = 200 mg elemental calcium Dose = mg calcium carbonate ( mg elemental calcium) Maalox No Notes: Memoria Regular 10-26 (Same As: l Strength 06:12: Tums) Arthur TAB 00 Calcium Carbonate 500 mg = 200 mg elemental calcium Dose = mg calcium carbonate ( mg elemental calcium) Aspirin No Notes: Memoria 8-03 Take with l 04:18: food. [place] Aspirin No Notes: Memoria 8-03 Take with l 04:18: food. Arthur Aspirin No Notes: Memoria 8-03 Take with l 04:18: food. Aspirin No Notes: Memoria 8- Take with l 04:18: food. Aspirin No Notes: Memoria 8-03 Take with l 04:18: food. Aspirin No Notes: Memoria 8- Take with l 04:18: food. Aspirin 2018-0 No Notes: Memoria 8-03 Take with l 04:18: food. citalopram 2018-0 [...] No 30 mg, Memori a 30 mg/mL - Route: l injectable 17:11: IVP, Drug He [...] day, # 20 tab, 0 Refill(s) naproxen 2018- No 500 mg = 1 Mem oria 500 mg oral 7-21 tab, PO, l tablet 17:05: Q12H, PRN Che[place] n 00 Pain, X 10 day, # 20 tab, 0 Refill(s) naproxen 2018- No 500 mg = 1 Mem oria 500 mg oral 7-21 tab, PO, l tablet 17:05: Q12H, PRN Cheko n 00 Pain, X 10 day, # 20 tab, 0 Refill(s) Morphine No 2 mg, 1 Memori a 7-21 mL, Route: l 14:54: IVP, Drug form: SOLN, ONCE, Dosing Weight 76, kg, Priority: STAT, Start date: 10/13/17 9:54:00 CDT, Stop date: 10/13/17 9:54:00 CDT Ondansetron No Notes: Yamil brandi -21 (Same as: l 14:54: Zofran) MEDICATION WASTE Product Size: 4 mg Product Wasted: ___ mg Sodium No 1,000 mL, Memori a Chloride -21 1000 l 0.9% 14:54: ml/hr, [place] (Bolus) IV 00 Infuse Over: 1 hr, Route: IV, 1,000, Drug form: INJ, ONCE, Priority: STAT, Dosing Weight 76 kg, Start date: 10/13/17 9:54:00 CDT, Stop date: 10/13/17 9:54:00 CDT Saline 2017-0 No Notes: Memoria Flush 0.9% 7-21 (Same as: l 14:54: BD [place] 00 Posiflush) Morphine No 2 mg, 1 Memori a 7-21 mL, Route: l 14:54: IVP, Drug form: SOLN, ONCE, Dosing Weight 76, kg, Priority: STAT, Start date: 10/13/17 9:54:00 CDT, Stop date: 10/13/17 9:54:00 CDT Ondansetron 2018-0 No Notes: Yamil brandi 7-21 (Same as: l 14:54: Zofran) Arthur 00 MEDICATION WASTE Product Size: 4 mg Product Wasted: ___ mg Sodium 20180 No 1,000 mL, Memori a Chloride 7-21 [...] 7-21 mL, Route: l 14:54: IVP, Drug [place] form: SOLN, ONCE, Dosing Weight 76, kg, Priority: STAT, Start date: 10/13/17 9:54:00 CDT, Stop date: 10/13/17 9:54:00 CDT Ondansetron 0 No Notes: Yamil brandi 7-21 (Same as: l 14:54: Zofran) [place] 00 MEDICATION WASTE Product Size: 4 mg Product Wasted: ___ mg Sodium 20180 No 1,000 mL, Memori a Chloride 7-21 1000 l 0.9% 14:54: ml/hr, [place] (Bolus) IV 00 Infuse Over: 1 hr, Route: IV, 1,000, Drug form: INJ, ONCE, Priority: STAT, Dosing Weight 76 kg, Start date: 10/13/17 9:54:00 CDT, Stop date: 10/13/17 9:54:00 CDT Saline 0 No Notes: Memoria Flush 0.9% 7-21 (Same as: l 14:54: BD [place] 00 Posiflush) Morphine 2018-0 No 2 mg, 1 Memori a 7-21 mL, Route: l 14:54: IVP, Drug [place] form: SOLN, ONCE, Dosing Weight 76, kg, Priority: STAT, Start date: 10/13/17 9:54:00 CDT, Stop date: 10/13/17 9:54:00 CDT Ondansetron 2018-0 No Notes: Yamil brandi 7-21 (Same as: l 14:54: Zofran) [place] 00 MEDICATION WASTE Product Size: 4 mg Product Wasted: ___ mg Sodium 2018-0 No 1,000 mL, Memori a Chloride 7-21 1000 l 0.9% 14:54: ml/hr, [place] (Bolus) IV 00 Infuse Over: 1 hr, Route: IV, 1,000, Drug form: INJ, ONCE, Priority: STAT, Dosing Weight 76 kg, Start date: 10/13/17 9:54:00 CDT, Stop date: 10/13/17 9:54:00 CDT Saline 2018-0 No Notes: Memoria Flush 0.9% 7-21 (Same as: l 14:54: BD Arthur 00 Posiflush) Morphine 2018-0 No 2 mg, 1 Memori a 7-21 mL, Route: l 14:54: IVP, Drug [place] 00 form: SOLN, ONCE, Dosing Weight 76, [...] 0.9% 7-21 (Same as: l 14:54: BD [place] 00 Posiflush) Morphine 2018-0 No 2 mg, 1 Memori a 7-21 mL, Route: l 14:54: IVP, Drug Arthur 00 form: SOLN, ONCE, Dosing Weight 76, kg, Priority: STAT, Start date: 10/13/17 9:54:00 CDT, Stop date: 10/13/17 9:54:00 CDT Ondansetron 2018-0 No Notes: Yamil brandi 7-21 (Same as: l 14:54: Zofran) [place] 00 MEDICATION WASTE Product Size: 4 mg [...] Chloride 7-21 1000 l 0.9% 14:54: ml/hr, [place] (Bolus) IV 00 Infuse Over: 1 hr, Route: IV, 1,000, Drug form: INJ, ONCE, Priority: STAT, Dosing Weight 76 kg, Start date: 10/13/17 9:54:00 CDT, Stop date: 10/13/17 9:54:00 CDT Saline 2018-0 No Notes: Memoria Flush 0.9% 7-21 (Same as: l 14:54: BD [place] 00 Posiflush) docusate 2018-0 Yes 250mg Take 1 [...] 8 Medical (eight) Branch hours. traMADOL 50 2017-0 Yes 50mg Take 1 Univ ers mg tablet 4-20 tablet by ity o f 00:00: mouth [place] 00 every 6 Medical (six) Branch hours as needed for Pain (scale 4-6). tramadol Yes 50 mg = 1 Yamil brandi hydrochlori 2-07 tab, PO, l de 50 MG 19:27: Q6H, PRN Elisa nn Oral Tablet 00 Pain, X 10 day, # 40 tab, 0 Refill(s) tramadol Yes 50 mg = 1 Yamil brandi hydrochlori 2-07 tab, PO, l de 50 MG 19:27: Q6H, PRN Elisa nn Oral Tablet 00 Pain, X 10 day, # 40 tab, 0 Refill(s) tramadol Yes 50 mg = 1 Yamil brandi hydrochlori 2-07 tab, PO, l de 50 MG 19:27: Q6H, PRN Elisa nn Oral Tablet 00 Pain, X 10 day, # 40 tab, 0 Refill(s) tramadol Yes 50 mg = 1 Yamil brandi hydrochlori 2-07 tab, PO, l de 50 MG 19:27: Q6H, PRN Elisa nn Oral Tablet 00 Pain, X 10 day, # 40 tab, 0 Refill(s) tramadol Yes 50 mg = 1 Yamil brandi hydrochlori 2-07 tab, PO, l de 50 MG 19:27: Q6H, PRN Elisa nn Oral Tablet 00 Pain, X 10 day, # 40 tab, 0 Refill(s) tramadol Yes 50 mg = 1 Yamil brandi hydrochlori 2-07 tab, PO, l de 50 MG 19:27: Q6H, PRN Elisa nn Oral Tablet 00 Pain, X 10 day, # 40 tab, 0 Refill(s) tramadol Yes 50 mg = 1 Yamil brandi hydrochlori 2-07 tab, PO, l de 50 MG 19:27: Q6H, PRN Elisa nn Oral Tablet 00 Pain, X 10 day, # 40 tab, 0 Refill(s) Mylicon No Notes: Memoria 2-06 (Same as: l 19:00: Mylicon) [place] 00 Mylicon No Notes: Memoria 2-06 (Same as: l 19:00: Mylicon) [place] Mylicon No Notes: Memoria 2-06 (Same as: l 19:00: Mylicon) [place] licon No Notes: Memoria 2-06 (Same as: l 19:00: Mylicon) Arthur Mylicon No Notes: Memoria 2-06 (Same as: l 19:00: Mylicon) [place] licon No Notes: Memoria 2-06 (Same as: l 19:00: Mylicon) [place] licon No Notes: Memoria 2-06 (Same as: l 19:00: Mylicon) [place] 00 Ondansetron No Notes: Yamil brandi 2-06 (Same as: l 16:57: Zofran) [place] 00 MEDICATION WASTE Product Size: 4 mg Product Wasted: ___ mg Morphine No Notes: Memoria 2-06 (Same l 16:57: as:MORPhin [place] 00 e Sulfate) Docusate No Notes: Memoria 2-06 (Same as: l 16:57: Colace) [place] (Do Not Crush) Diphenhydra No Notes: Yamil brandi mine 2- (Same as: l 16:57: Benadryl) [place] 00 Calcium No 1,000 mL, Memor ia Chloride 05-01 Rate: 125 l 0.0014 16:57: ml/hr, [place] MEQ/ML / 00 Infuse Potassium over: 8 Chloride hr, Route: 0.004 IV, Dosing MEQ/ML / Weight 75 Sodium kg, Total Chloride Volume: 0.103 1,000, MEQ/ML / Start Sodium date: Lactate 05/01/16 0.028 10:57:00 MEQ/ML CANDLES POURER, Injectable Duration: Solution 30 day, Stop date: 05/31/16 10:56:00 CANDLES POURER Ondansetron No Notes: Yamil brandi 2-06 (Same as: l 16:57: Zofran) [place] 00 MEDICATION WASTE Product Size: 4 mg Product Wasted: ___ mg Morphine No Notes: Memoria 2-06 (Same l 16:57: as:MORPhin [place] 00 e Sulfate) Docusate No Notes: Memoria 2-06 (Same as: l 16:57: Colace) [place] (Do Not Crush) Diphenhydra No Notes: Yamil brandi mine 2-06 (Same as: l 16:57: Benadryl) [place] Calcium No 1,000 mL, Memor ia Chloride 2-06 Rate: 125 l 0.0014 16:57: ml/hr, [place] MEQ/ML / 00 Infuse Potassium over: 8 Chloride hr, Route: 0.004 IV, Dosing MEQ/ML / Weight 75 Sodium kg, Total Chloride Volume: 0.103 1,000, MEQ/ML / Start Sodium date: Lactate 05/01/16 0.028 10:57:00 MEQ/ML CANDLES POURER, Injectable Duration: Solution 30 day, Stop date: 05/31/16 10:56:00 CANDLES POURER Ondansetron No Notes: Yamil brandi 2-06 (Same as: l 16:57: Zofran) [place] MEDICATION WASTE Product Size: 4 mg Product Wasted: ___ mg Morphine No Notes: Memoria 2-06 (Same l 16:57: as:MORPhin [place] 00 e Sulfate) Docusate No Notes: Memoria 2-06 (Same as: l 16:57: Colace) [place] (Do Not Crush) Diphenhydra No Notes: Yamil brandi mine 2-06 (Same as: l 16:57: Benadryl) [place] 00 Calcium No 1,000 mL, Memor ia Chloride 2-06 Rate: 125 l 0.0014 16:57: ml/hr, [place] MEQ/ML / 00 Infuse Potassium over: 8 Chloride hr, Route: 0.004 IV, Dosing MEQ/ML / Weight 75 Sodium kg, Total Chloride Volume: 0.103 1,000, MEQ/ML / Start Sodium date: Lactate 05/01/16 0.028 10:57:00 MEQ/ML CANDLES POURER, Injectable Duration: Solution 30 day, Stop date: 05/31/16 10:56:00 CANDLES POURER Ondansetron No Notes: Yamil brandi 2-06 (Same as: l 16:57: Zofran) [place] 00 MEDICATION WASTE Product Size: 4 mg Product Wasted: ___ mg Morphine No Notes: Memoria 2-06 (Same l 16:57: as:MORPhin [place] 00 e Sulfate) Docusate No Notes: Memoria 2-06 (Same as: l 16:57: Colace) [place] 00 (Do Not Crush) Diphenhydra No Notes: Yamil brandi mine 2-06 (Same as: l 16:57: Benadryl) [place] Calcium No 1,000 mL, Memor ia Chloride 2-06 Rate: 125 l 0.0014 16:57: ml/hr, [place] MEQ/ML / 00 Infuse Potassium over: 8 Chloride hr, Route: 0.004 IV, Dosing MEQ/ML / Weight 75 Sodium kg, Total Chloride Volume: 0.103 1,000, MEQ/ML / Start Sodium date: Lactate 05/01/16 0.028 10:57:00 MEQ/ML CANDLES POURER, Injectable Duration: Solution 30 day, Stop date: 05/31/16 10:56:00 CANDLES POURER Ondansetron No Notes: Yamil brandi 2-06 (Same as: l 16:57: Zofran) [place] 00 MEDICATION WASTE Product Size: 4 mg Product Wasted: ___ mg Morphine No Notes: Memoria 2- (Same l 16:57: as:MORPhin [place] 00 e Sulfate) Docusate No Notes: Memoria 2-06 (Same as: l 16:57: Colace) [place] 00 (Do Not Crush) Diphenhydra No Notes: Yamil brandi mine 2-06 (Same as: l 16:57: Benadryl) [place] 00 Calcium 0 No 1,000 mL, Memor ia Chloride 2-06 Rate: 125 l 0.0014 16:57: ml/hr, [place] MEQ/ML / 00 Infuse Potassium over: 8 Chloride hr, Route: 0.004 IV, Dosing MEQ/ML / Weight 75 Sodium kg, Total Chloride Volume: 0.103 1,000, MEQ/ML / Start Sodium date: Lactate 05/01/16 0.028 10:57:00 MEQ/ML CANDLES POURER, Injectable Duration: Solution 30 day, Stop date: 05/31/16 10:56:00 CANDLES POURER Ondansetron No Notes: Yamil brandi 2-06 (Same as: l 16:57: Zofran) [place] 00 MEDICATION WASTE Product Size: 4 mg Product Wasted: ___ mg Morphine No Notes: Memoria 2-06 (Same l 16:57: as:MORPhin [place] 00 e Sulfate) Docusate No Notes: Memoria 2-06 (Same as: l 16:57: Colace) [place] (Do Not Crush) Diphenhydra No Notes: Yamil brandi mine 2-06 (Same as: l 16:57: Benadryl) [place] Calcium No 1,000 mL, Memor ia Chloride 2-06 Rate: 125 l 0.0014 16:57: ml/hr, [place] MEQ/ML / 00 Infuse Potassium over: 8 Chloride hr, Route: 0.004 IV, Dosing MEQ/ML / Weight 75 Sodium kg, Total Chloride Volume: 0.103 1,000, MEQ/ML / Start Sodium date: Lactate 05/01/16 0.028 10:57:00 MEQ/ML CANDLES POURER, Injectable Duration: Solution 30 day, Stop date: 05/31/16 10:56:00 CANDLES POURER Ondansetron No Notes: Yamil brandi 2-06 (Same as: l 16:57: Zofran) [place] 00 MEDICATION WASTE Product Size: 4 mg Product Wasted: ___ mg Morphine No Notes: Memoria 2-06 (Same l 16:57: as:MORPhin [place] 00 e Sulfate) Docusate No Notes: Memoria 2-06 (Same as: l 16:57: Colace) [place] 00 (Do Not Crush) Diphenhydra No Notes: Yamil brandi mine 2-06 (Same as: l 16:57: Benadryl) [place] 00 Calcium No 1,000 mL, Memor ia Chloride 2-06 Rate: 125 l 0.0014 16:57: ml/hr, MEQ/ML / 00 Infuse Potassium over: 8 Chloride hr, Route: 0.004 IV, Dosing MEQ/ML / Weight 75 Sodium kg, Total Chloride Volume: 0.103 1,000, MEQ/ML / Start Sodium date: Lactate 05/01/16 0.028 10:57:00 MEQ/ML CANDLES POURER, Injectable Duration: Solution 30 day, Stop date: 05/31/16 10:56:00 CANDLES POURER ondansetron 2017-0 No Route: IV, Memoria (ANES) 2- Drug form: l 16:05: INJ, ONCE, Stop date: 05/01/16 10:05:00 CANDLES POURER glycopyrrol 2017-0 No Route: IV, Memoria ate (ANES) 2- Drug form: l 16:05: INJ, ONCE, Stop date: 05/01/16 10:05:00 CANDLES POURER neostigmine 2017-0 No Route: IV, Memoria (ANES) 2 Drug form: l 16:05: INJ, ONCE, Stop date: 05/01/16 10:05:00 CANDLES POURER ketOROLAC 2017-0 No IV, ONCE Yamil brandi (ANES) 2- l 16:05: [place] 00 ondansetron 2017-0 No Route: IV, Memoria (ANES) 2- Drug form: l 16:05: INJ, ONCE, Stop date: 05/01/16 10:05:00 CANDLES POURER glycopyrrol 2017-0 No Route: IV, Memoria ate (ANES) 2- Drug form: l 16:05: INJ, ONCE, Stop date: 05/01/16 10:05:00 CANDLES POURER neostigmine 2017-0 No Route: IV, Memoria (ANES) 2-06 Drug form: l 16:05: INJ, ONCE, Stop date: 05/01/16 10:05:00 CANDLES POURER ketOROLAC 2017-0 No IV, ONCE Yamil brandi (ANES) 2- l 16:05: [place] 00 ondansetron 2017-0 No Route: IV, Memoria (ANES) 2- Drug form: l 16:05: INJ, ONCE, Stop date: 05/01/16 10:05:00 CANDLES POURER glycopyrrol 2017-0 No Route: IV, Memoria ate (ANES) 2- Drug form: l 16:05: INJ, ONCE, Stop date: 05/01/16 10:05:00 CANDLES POURER neostigmine 2017-0 No Route: IV, Memoria (ANES) 2- Drug form: l 16:05: INJ, ONCE, Stop date: 05/01/16 10:05:00 CANDLES POURER ketOROLAC 2017-0 No IV, ONCE Yamil brandi (ANES) 2- l 16:05: [place] 00 ondansetron 2017-0 No Route: IV, Memoria (ANES) 2- Drug form: l 16:05: INJ, ONCE, Stop date: 05/01/16 10:05:00 CANDLES POURER glycopyrrol 2017-0 No Route: IV, Memoria ate (ANES) 2 Drug form: l 16:05: INJ, ONCE, Stop date: 05/01/16 10:05:00 CANDLES POURER neostigmine 2017-0 No Route: IV, Memoria (ANES) 2- Drug form: l 16:05: INJ, ONCE, Stop date: 05/01/16 10:05:00 CANDLES POURER ketOROLAC 2017-0 No IV, ONCE Yamil brandi (ANES) 2- l 16:05: [place] 00 ondansetron 2017-0 No Route: IV, Memoria (ANES) 2-06 Drug form: l 16:05: INJ, ONCE, Stop date: 05/01/16 10:05:00 CANDLES POURER glycopyrrol 2017-0 No Route: IV, Memoria ate (ANES) 2- Drug form: l 16:05: INJ, ONCE, Stop date: 05/01/16 10:05:00 CANDLES POURER neostigmine 2017-0 No Route: IV, Memoria (ANES) 2-06 Drug form: l 16:05: INJ, ONCE, Stop date: 05/01/16 10:05:00 CANDLES POURER ketOROLAC 2017-0 No IV, ONCE Yamil brandi (ANES) 2-06 l 16:05: [place] 00 ondansetron 2017-0 No Route: IV, Memoria (ANES) 2 Drug form: l 16:05: INJ, ONCE, Stop date: 05/01/16 10:05:00 CANDLES POURER glycopyrrol 2017-0 No Route: IV, Memoria ate (ANES) 2 Drug form: l 16:05: INJ, ONCE, Stop date: 05/01/16 10:05:00 CANDLES POURER neostigmine No Route: IV, Memoria (ANES) 2 Drug form: l 16:05: INJ, ONCE, Stop date: 05/01/16 10:05:00 CANDLES POURER ketOROLAC No IV, ONCE Yamil brandi (ANES) 2 l 16:05: [place] 00 ondansetron No Route: IV, Memoria (ANES) 2 Drug form: l 16:05: INJ, ONCE, Stop date: 05/01/16 10:05:00 CANDLES POURER glycopyrrol No Route: IV, Memoria ate (ANES) 05-01 Drug form: l 16:05: INJ, ONCE, Stop date: 05/01/16 10:05:00 CANDLES POURER neostigmine No Route: IV, Memoria (ANES) 2 Drug form: l 16:05: INJ, ONCE, Stop date: 05/01/16 10:05:00 CANDLES POURER ketOROLAC No IV, ONCE Yamil brandi (ANES) 05-01 l 16:05: Hydromorpho No Notes: Yamil brandi ne 2-06 Same as l 16:01: Dilaudid Flumazenil No Notes: Memor ia 2-06 (Same as: l 16:01: Romazicon) Naloxone No Notes: Memoria 2-06 Same as l 16:01: Narcan Ondansetron No Notes: Yamil brnadi 2-06 (Same as: l 16:01: Zofran) MEDICATION WASTE Product Size: 4 mg Product Wasted: ___ mg Morphine No Notes: Memoria 2-06 (Same l 16:01: as:MORPhin e Sulfate) Acetaminoph No 1,000 mg, M emoria en 05-01 Route: l 16:01: IVPB, Drug form: INJ, ONCE, Dosing Weight 74.091, kg, PRN Pain Score 1-3, Start date: 05/01/16 10:01:00 CANDLES POURER, Duration: 1 doses or times, Stop date: Limited # of times Ketorolac No 4 days Memor ia 2-06 l 16:01: MEDICATION [place] 00 WASTE Product Size: 30 mg Product Wasted: ___ mg Calcium No 1,000 mL, Memor ia Chloride 2 Rate: 125 l 0.0014 16:01: ml/hr, MEQ/ML / 00 Infuse Potassium over: 8 Chloride hr, Route: 0.004 IV, Dosing MEQ/ML / Weight 75 Sodium kg, Total Chloride Volume: 0.103 1,000, MEQ/ML / Start Sodium date: Lactate 05/01/16 0.028 10:01:00 MEQ/ML CANDLES POURER, Injectable Duration: Solution 30 day, Stop date: 05/31/16 10:00:00 CANDLES POURER Labetalol No Notes: Memori a 2-06 (Same [...] Pain Score 1-3, Start date: 05/01/16 10:01:00 CANDLES POURER, Duration: 1 doses or times, Stop date: Limited # of times Ketorolac No 4 days Memor ia 2-06 l 16:01: MEDICATION [place] 00 WASTE Product Size: 30 mg Product Wasted: ___ mg Calcium 2017 No 1,000 mL, Memor ia Chloride 05-01 Rate: 125 l 0.0014 16:01: ml/hr, [place] MEQ/ML / 00 Infuse Potassium over: 8 Chloride hr, Route: 0.004 IV, Dosing MEQ/ML / Weight 75 Sodium kg, Total Chloride Volume: 0.103 1,000, MEQ/ML / Start Sodium date: Lactate 05/01/16 0.028 10:01:00 MEQ/ML CANDLES POURER, Injectable Duration: Solution 30 day, Stop date: 05/31/16 10:00:00 CANDLES POURER Labetalol No Notes: Memori a 2-06 (Same [...] Pain Score 1-3, Start date: 05/01/16 10:01:00 CANDLES POURER, Duration: 1 doses or times, Stop date: Limited # of times Ketorolac 2017 No 4 days Memor ia 2-06 l 16:01: MEDICATION [place] 00 WASTE Product Size: 30 mg Product Wasted: ___ mg Calcium 2017 No 1,000 mL, Memor ia Chloride 2-06 Rate: 125 l 0.0014 16:01: ml/hr, [place] MEQ/ML / Infuse Potassium over: 8 Chloride hr, Route: 0.004 IV, Dosing MEQ/ML / Weight 75 Sodium kg, Total Chloride Volume: 0.103 1,000, MEQ/ML / Start Sodium date: Lactate 05/01/16 0.028 10:01:00 MEQ/ML CANDLES POURER, Injectable Duration: Solution 30 day, Stop date: 05/31/16 10:00:00 CANDLES POURER Labetalol No Notes: Memori a 2-06 (Same [...] Acetaminoph No 1,000 mg, M emoria en 2-06 Route: l 16:01: IVPB, Drug form: INJ, ONCE, Dosing Weight 74.091, kg, PRN Pain Score 1-3, Start date: 05/01/16 10:01:00 CANDLES POURER, Duration: 1 doses or times, Stop date: Limited # of times Ketorolac 2017-0 No 4 days Memor ia 2-06 l 16:01: MEDICATION [place] 00 WASTE Product Size: 30 mg Product Wasted: ___ mg Calcium 2017- No 1,000 mL, Memor ia Chloride 2-06 Rate: 125 l 0.0014 16:01: ml/hr, [place] MEQ/ML / 00 Infuse Potassium over: 8 Chloride hr, Route: 0.004 IV, Dosing MEQ/ML / Weight 75 Sodium kg, Total Chloride Volume: 0.103 1,000, MEQ/ML / Start Sodium date: Lactate 05/01/16 0.028 10:01:00 MEQ/ML CANDLES POURER, Injectable Duration: Solution 30 day, Stop date: 05/31/16 10:00:00 CANDLES POURER Labetalol No Notes: Memori a 2-06 (Same [...] Notes: Memoria 2-06 (Same l 16:01: as:MORPhin [place] 00 e Sulfate) Acetaminoph 2017 No 1,000 mg, M emoria en 206 Route: l 16:01: IVPB, Drug form: INJ, ONCE, Dosing Weight 74.091, kg, PRN Pain Score 1-3, Start date: 05/01/16 10:01:00 CANDLES POURER, Duration: 1 doses or times, Stop date: Limited # of times Ketorolac 2017-0 No 4 days Memor ia 2-06 l 16:01: MEDICATION [place] WASTE Product Size: 30 mg Product Wasted: ___ mg Calcium 2017- No 1,000 mL, Memor ia Chloride 2-06 Rate: 125 l 0.0014 16:01: ml/hr, [place] MEQ/ML / 00 Infuse Potassium over: 8 Chloride hr, Route: 0.004 IV, Dosing MEQ/ML / Weight 75 Sodium kg, Total Chloride Volume: 0.103 1,000, MEQ/ML / Start Sodium date: Lactate 05/01/16 0.028 10:01:00 MEQ/ML CANDLES POURER, Injectable Duration: Solution 30 day, Stop date: 05/31/16 10:00:00 CANDLES POURER Labetalol No Notes: Memori a 2-06 (Same [...] Acetaminoph No 1,000 mg, M emoria en 2-06 Route: l 16:01: IVPB, Drug form: INJ, ONCE, Dosing Weight 74.091, kg, PRN Pain Score 1-3, Start date: 05/01/16 10:01:00 CANDLES POURER, Duration: 1 doses or times, Stop date: Limited # of times Ketorolac 2017 No 4 days Memor ia 2-06 l 16:01: MEDICATION [place] 00 WASTE Product Size: 30 mg Product Wasted: ___ mg Calcium No 1,000 mL, Memor ia Chloride 2-06 Rate: 125 l 0.0014 16:01: ml/hr, [place] MEQ/ML / 00 Infuse Potassium over: 8 Chloride hr, Route: 0.004 IV, Dosing MEQ/ML / Weight 75 Sodium kg, Total Chloride Volume: 0.103 1,000, MEQ/ML / Start Sodium date: Lactate 05/01/16 0.028 10:01:00 MEQ/ML CANDLES POURER, Injectable Duration: Solution 30 day, Stop date: 05/31/16 10:00:00 CANDLES POURER Labetalol No Notes: Memori a 2-06 (Same as: l 16:01: Normodyne, [place] 00 Trandate) Push over 2 minutes Give bolus over 2-3 minutes. Calcium No 1,000 mL, Memor ia Chloride 2-06 Rate: 125 l 0.0014 16:01: ml/hr, [place] MEQ/ML / 00 Infuse Potassium over: 8 Chloride hr, Route: 0.004 IV, Dosing MEQ/ML / Weight 75 Sodium kg, Total Chloride Volume: 0.103 1,000, MEQ/ML / Start Sodium date: Lactate 05/01/16 0.028 10:01:00 MEQ/ML CANDLES POURER, Injectable Duration: Solution 30 day, Stop date: 05/31/16 10:00:00 CANDLES POURER Labetalol No Notes: Memori a 2-06 (Same as: l 16:01: [place], [place] 00 Trandate) Push over 2 minutes Give [...] Notes: Memoria 2-06 (Same l 16:01: as:MORPhin [place] 00 e Sulfate) Acetaminoph No 1,000 mg, M emoria en 05-01 Route: l 16:01: IVPB, Drug [place] 00 form: INJ, ONCE, Dosing Weight 74.091, kg, PRN Pain Score 1-3, Start date: 05/01/16 10:01:00 CANDLES POURER, Duration: 1 doses or times, Stop date: Limited # of times Ketorolac No 4 days Memor ia 05-01 l 16:01: MEDICATION [place] 00 WASTE Product Size: 30 mg Product Wasted: ___ mg acetaminoph No Route: IV, Memoria en (ANES) 2 Drug form: l (ANES) 15:38: INJ, Start Elisa date: 05/01/16 9:38:00 CANDLES POURER, Stop date: 05/01/16 10:38:00 CANDLES POURER acetaminoph No Route: IV, Memoria en (ANES) 2 Drug form: l (ANES) 15:38: INJ, Start Elisa date: 05/01/16 9:38:00 CANDLES POURER, Stop date: 05/01/16 10:38:00 CANDLES POURER acetaminoph No Route: IV, Memoria en (ANES) 2- Drug form: l (ANES) 15:38: INJ, Start Elisa date: 05/01/16 9:38:00 CANDLES POURER, Stop date: 05/01/16 10:38:00 CANDLES POURER acetaminoph No Route: IV, Memoria en (ANES) 2- Drug form: l (ANES) 15:38: INJ, Start Elisa date: 05/01/16 9:38:00 CANDLES POURER, Stop date: 05/01/16 10:38:00 CANDLES POURER acetaminoph No Route: IV, Memoria en (ANES) 2-06 Drug form: l (ANES) 15:38: INJ, Start Elisa date: 05/01/16 9:38:00 CANDLES POURER, Stop date: 05/01/16 10:38:00 CANDLES POURER acetaminoph No Route: IV, Memoria en (ANES) 2- Drug form: l (ANES) 15:38: INJ, Start Elisa date: 05/01/16 9:38:00 CANDLES POURER, Stop date: 05/01/16 10:38:00 CANDLES POURER acetaminoph 2017-0 No Route: IV, Memoria en (ANES) 2 Drug form: l (ANES) 15:38: INJ, Start Elisa date: 05/01/16 9:38:00 CANDLES POURER, Stop date: 05/01/16 10:38:00 CANDLES POURER hydromorpho 2017-0 No Route: IV, Memoria ne (ANES) 05-01 Drug form: l 15:02: INJ, ONCE, [place] 00 Stop date: 05/01/16 9:02:00 CANDLES POURER hydromorpho 2017-0 No Route: IV, Memoria ne (ANES) 05-01 Drug form: l 15:02: INJ, ONCE, [place] 00 Stop date: 05/01/16 9:02:00 CANDLES POURER hydromorpho 2017-0 No Route: IV, Memoria ne (ANES) 05-01 Drug form: l 15:02: INJ, ONCE, [place] 00 Stop date: 05/01/16 9:02:00 CANDLES POURER hydromorpho 2017-0 No Route: IV, Memoria ne (ANES) 2 Drug form: l 15:02: INJ, ONCE, [place] 00 Stop date: 05/01/16 9:02:00 CANDLES POURER hydromorpho 2017-0 No Route: IV, Memoria ne (ANES) 2 Drug form: l 15:02: INJ, ONCE, [place] Stop date: 05/01/16 9:02:00 CANDLES POURER hydromorpho 2017-0 No Route: IV, Memoria ne (ANES) 2 Drug form: l 15:02: INJ, ONCE, [place] Stop date: 05/01/16 9:02:00 CANDLES POURER hydromorpho 2017-0 No Route: IV, Memoria ne (ANES) 2 Drug form: l 15:02: INJ, ONCE, [place] 00 Stop date: 05/01/16 9:02:00 CANDLES POURER fentaNYL 2017-0 No Route: IV, Mem oria (ANES) 2 Drug form: l 14:37: INJ, ONCE, [place] 00 Stop date: 05/01/16 8:37:00 CANDLES POURER lidocaine 2017-0 No Route: IV, Me moria (ANES) 2- Drug form: l 14:37: INJ, ONCE, [place] 00 Stop date: 05/01/16 8:37:00 CANDLES POURER propofol 2017-0 No Route: IV, Mem oria (ANES) 2- Drug form: l 14:37: INJ, ONCE, Stop date: 05/01/16 8:37:00 CANDLES POURER midazolam 2017-0 No Route: IV, Me moria (ANES) 2- Drug form: l 14:37: SOLN, [place] ONCE, Stop date: 05/01/16 8:37:00 CANDLES POURER rocuronium 2017-0 No Route: IV, M emoria (ANES) 2- Drug form: l 14:37: INJ, ONCE, Stop date: 05/01/16 8:37:00 CANDLES POURER metoclopram 2017-0 No Route: IV, Memoria eda (ANES) 2- Drug form: l 14:37: INJ, ONCE, Stop date: 05/01/16 8:37:00 CANDLES POURER dexamethaso 2017-0 No Route: IV, Memoria ne (ANES) 2- Drug form: l 14:37: INJ, ONCE, Stop date: 05/01/16 8:37:00 CANDLES POURER fentaNYL 2017-0 No Route: IV, Mem oria (ANES) 2- Drug form: l 14:37: INJ, ONCE, Stop date: 05/01/16 8:37:00 CANDLES POURER lidocaine 2017-0 No Route: IV, Me moria (ANES) 2- Drug form: l 14:37: INJ, ONCE, [place] 00 Stop date: 05/01/16 8:37:00 CANDLES POURER propofol 2017-0 No Route: IV, Mem oria (ANES) 2- Drug form: l 14:37: INJ, ONCE, Stop date: 05/01/16 8:37:00 CANDLES POURER midazolam 2017-0 No Route: IV, Me moria (ANES) 2-06 Drug form: l 14:37: SOLN, [place] 00 ONCE, Stop date: 05/01/16 8:37:00 CANDLES POURER rocuronium 2017-0 No Route: IV, M emoria (ANES) 2- Drug form: l 14:37: INJ, ONCE, [place] 00 Stop date: 05/01/16 8:37:00 CANDLES POURER metoclopram 2017-0 No Route: IV, Memoria eda (ANES) 2- Drug form: l 14:37: INJ, ONCE, Stop date: 05/01/16 8:37:00 CANDLES POURER dexamethaso 2017-0 No Route: IV, Memoria ne (ANES) 2- Drug form: l 14:37: INJ, ONCE, Stop date: 05/01/16 8:37:00 CANDLES POURER fentaNYL 2017-0 No Route: IV, Mem oria (ANES) 2- Drug form: l 14:37: INJ, ONCE, Stop date: 05/01/16 8:37:00 CANDLES POURER lidocaine 2017-0 No Route: IV, Me moria (ANES) 2- Drug form: l 14:37: INJ, ONCE, Stop date: 05/01/16 8:37:00 CANDLES POURER propofol 2017-0 No Route: IV, Mem oria (ANES) 2- Drug form: l 14:37: INJ, ONCE, Stop date: 05/01/16 8:37:00 CANDLES POURER midazolam 2017-0 No Route: IV, Me moria (ANES) 2- Drug form: l 14:37: SOLN, ONCE, Stop date: 05/01/16 8:37:00 CANDLES POURER rocuronium 2017-0 No Route: IV, M emoria (ANES) 2- Drug form: l 14:37: INJ, ONCE, Stop date: 05/01/16 8:37:00 CANDLES POURER metoclopram 2017-0 No Route: IV, Memoria eda (ANES) 2- Drug form: l 14:37: INJ, ONCE, Stop date: 05/01/16 8:37:00 CANDLES POURER dexamethaso 2017-0 No Route: IV, Memoria ne (ANES) 2- Drug form: l 14:37: INJ, ONCE, [place] 00 Stop date: 05/01/16 8:37:00 CANDLES POURER fentaNYL 2017-0 No Route: IV, Mem oria (ANES) 2- Drug form: l 14:37: INJ, ONCE, [place] 00 Stop date: 05/01/16 8:37:00 CANDLES POURER lidocaine 2017-0 No Route: IV, Me moria (ANES) 2- Drug form: l 14:37: INJ, ONCE, Stop date: 05/01/16 8:37:00 CANDLES POURER propofol 2017-0 No Route: IV, Mem oria (ANES) 2- Drug form: l 14:37: INJ, ONCE, Stop date: 05/01/16 8:37:00 CANDLES POURER midazolam 2017-0 No Route: IV, Me moria (ANES) 2- Drug form: l 14:37: SOLN, ONCE, Stop date: 05/01/16 8:37:00 CANDLES POURER rocuronium 2017-0 No Route: IV, M emoria (ANES) 2- Drug form: l 14:37: INJ, ONCE, Stop date: 05/01/16 8:37:00 CANDLES POURER metoclopram 2017-0 No Route: IV, Memoria eda (ANES) 2- Drug form: l 14:37: INJ, ONCE, Stop date: 05/01/16 8:37:00 CANDLES POURER dexamethaso 2017-0 No Route: IV, Memoria ne (ANES) 2- Drug form: l 14:37: INJ, ONCE, Stop date: 05/01/16 8:37:00 CANDLES POURER fentaNYL 2017-0 No Route: IV, Mem oria (ANES) 2- Drug form: l 14:37: INJ, ONCE, Stop date: 05/01/16 8:37:00 CANDLES POURER lidocaine 2017-0 No Route: IV, Me moria (ANES) 2-06 Drug form: l 14:37: INJ, ONCE, Stop date: 05/01/16 8:37:00 CANDLES POURER propofol 2017-0 No Route: IV, Mem oria (ANES) 2- Drug form: l 14:37: INJ, ONCE, Stop date: 05/01/16 8:37:00 CANDLES POURER midazolam 2017-0 No Route: IV, Me moria (ANES) 2- Drug form: l 14:37: SOLN, [place] 00 ONCE, Stop date: 05/01/16 8:37:00 CANDLES POURER rocuronium 2017-0 No Route: IV, M emoria (ANES) 2- Drug form: l 14:37: INJ, ONCE, Stop date: 05/01/16 8:37:00 CANDLES POURER metoclopram 2017-0 No Route: IV, Memoria eda (ANES) 2- Drug form: l 14:37: INJ, ONCE, Stop date: 05/01/16 8:37:00 CANDLES POURER dexamethaso 2017-0 No Route: IV, Memoria ne (ANES) 2 Drug form: l 14:37: INJ, ONCE, Stop date: 05/01/16 8:37:00 CANDLES POURER fentaNYL 2017-0 No Route: IV, Mem oria (ANES) 2 Drug form: l 14:37: INJ, ONCE, Stop date: 05/01/16 8:37:00 CANDLES POURER lidocaine 2017-0 No Route: IV, Me moria (ANES) 2- Drug form: l 14:37: INJ, ONCE, Stop date: 05/01/16 8:37:00 CANDLES POURER propofol 2017-0 No Route: IV, Mem oria (ANES) 2- Drug form: l 14:37: INJ, ONCE, Stop date: 05/01/16 8:37:00 CANDLES POURER midazolam 2017-0 No Route: IV, Me moria (ANES) 2- Drug form: l 14:37: SOLN, [place] 00 ONCE, Stop date: 05/01/16 8:37:00 CANDLES POURER rocuronium 2017-0 No Route: IV, M emoria (ANES) 2- Drug form: l 14:37: INJ, ONCE, Stop date: 05/01/16 8:37:00 CANDLES POURER metoclopram 2017-0 No Route: IV, Memoria eda (ANES) 2- Drug form: l 14:37: INJ, ONCE, Stop date: 05/01/16 8:37:00 CANDLES POURER dexamethaso 2017-0 No Route: IV, Memoria ne (ANES) 05-01 Drug form: l 14:37: INJ, ONCE, Stop date: 05/01/16 8:37:00 CANDLES POURER dexamethaso 2017-0 No Route: IV, Memoria ne (ANES) 05-01 Drug form: l 14:37: INJ, ONCE, Stop date: 05/01/16 8:37:00 CANDLES POURER fentaNYL 2017-0 No Route: IV, Mem oria (ANES) 2 Drug form: l 14:37: INJ, ONCE, Stop date: 05/01/16 8:37:00 CANDLES POURER lidocaine 2017-0 No Route: IV, Me moria (ANES) 05-01 Drug form: l 14:37: INJ, ONCE, Stop date: 05/01/16 8:37:00 CANDLES POURER propofol 2017-0 No Route: IV, Mem oria (ANES) 05-01 Drug form: l 14:37: INJ, ONCE, Stop date: 05/01/16 8:37:00 CANDLES POURER midazolam 2017-0 No Route: IV, Me moria (ANES) 05-01 Drug form: l 14:37: SOLN, ONCE, Stop date: 05/01/16 8:37:00 CANDLES POURER rocuronium 2017-0 No Route: IV, M emoria (ANES) 05-01 Drug form: l 14:37: INJ, ONCE, Stop date: 05/01/16 8:37:00 CANDLES POURER metoclopram 2017-0 No Route: IV, Memoria eda (ANES) 05-01 Drug form: l 14:37: INJ, ONCE, Stop date: 05/01/16 8:37:00 CANDLES POURER famotidine 2017-0 No Route: IV, M emoria (ANES) 2 Drug form: l 14:22: INJ, ONCE, Stop date: 05/01/16 8:22:00 CANDLES POURER phenylephri 2017-0 No Route: IV, Memoria ne (ANES) 2 Drug form: l 14:22: INJ, ONCE, Stop date: 05/01/16 8:22:00 CANDLES POURER famotidine 2017-0 No Route: IV, M emoria (ANES) 2 Drug form: l 14:22: INJ, ONCE, Stop date: 05/01/16 8:22:00 CANDLES POURER phenylephri 2017-0 No Route: IV, Memoria ne (ANES) 05-01 Drug form: l 14:22: INJ, ONCE, Stop date: 05/01/16 8:22:00 CANDLES POURER famotidine 2017-0 No Route: IV, M emoria (ANES) 05-01 Drug form: l 14:22: INJ, ONCE, Stop date: 05/01/16 8:22:00 CANDLES POURER phenylephri 2017-0 No Route: IV, Memoria ne (ANES) 05-01 Drug form: l 14:22: INJ, ONCE, Stop date: 05/01/16 8:22:00 CANDLES POURER famotidine 2017-0 No Route: IV, M emoria (ANES) 05-01 Drug form: l 14:22: INJ, ONCE, Stop date: 05/01/16 8:22:00 CANDLES POURER phenylephri 2017-0 No Route: IV, Memoria ne (ANES) 05-01 Drug form: l 14:22: INJ, ONCE, Stop date: 05/01/16 8:22:00 CANDLES POURER famotidine 2016-0 No Route: IV, M emoria (ANES) 05-01 Drug form: l 14:22: INJ, ONCE, Stop date: 05/01/16 8:22:00 CANDLES POURER phenylephri 2016-0 No Route: IV, Memoria ne (ANES) 05-01 Drug form: l 14:22: INJ, ONCE, Stop date: 05/01/16 8:22:00 CANDLES POURER famotidine 2016-0 No Route: IV, M emoria (ANES) 05-01 Drug form: l 14:22: INJ, ONCE, Stop date: 05/01/16 8:22:00 CANDLES POURER phenylephri 2017-0 No Route: IV, Memoria ne (ANES) 05-01 Drug form: l 14:22: INJ, ONCE, Stop date: 05/01/16 8:22:00 CANDLES POURER famotidine 2017-0 No Route: IV, M emoria (ANES) 2- Drug form: l 14:22: INJ, ONCE, Stop date: 05/01/16 8:22:00 CANDLES POURER phenylephri 2016-0 No Route: IV, [place] ne (ANES) 2 Drug form: l 14:22: INJ, ONCE, Stop date: 05/01/16 8:22:00 CANDLES POURER ceFAZolin 2017-0 No Route: IV, Me moria (ANES) 2 Drug form: l 14:11: INJ, ONCE, Stop date: 05/01/16 8:11:00 CANDLES POURER ceFAZolin 2017-0 No Route: IV, Me moria (ANES) 2 Drug form: l 14:11: INJ, ONCE, Stop date: 05/01/16 8:11:00 CANDLES POURER ceFAZolin 2017-0 No Route: IV, Me moria (ANES) 2 Drug form: l 14:11: INJ, ONCE, Stop date: 05/01/16 8:11:00 CANDLES POURER ceFAZolin 2017-0 No Route: IV, Me moria (ANES) 2 Drug form: l 14:11: INJ, ONCE, Stop date: 05/01/16 8:11:00 CANDLES POURER ceFAZolin 2017-0 No Route: IV, Me moria (ANES) 2 Drug form: l 14:11: INJ, ONCE, Stop date: 05/01/16 8:11:00 CANDLES POURER ceFAZolin 2017-0 No Route: IV, Me moria (ANES) 2- Drug form: l 14:11: INJ, ONCE, Stop date: 05/01/16 8:11:00 CANDLES POURER ceFAZolin 2017-0 No Route: IV, Me moria (ANES) 2- Drug form: l 14:11: INJ, ONCE, Stop date: 05/01/16 8:11:00 CANDLES POURER LR 1000 mL No Route: IV, M emoria INJ (ANES) 2- Total l 13:35: Volume: 1,000, Start date: 05/01/16 7:35:00 CANDLES POURER, Stop date: 05/01/16 8:35:00 CANDLES POURER LR 1000 mL No Route: IV, M emoria INJ (ANES) 2-06 Total l 13:35: Volume: [place] 00 1,000, Start date: 05/01/16 7:35:00 CANDLES POURER, Stop date: 05/01/16 8:35:00 CANDLES POURER LR 1000 mL No Route: IV, M emoria INJ (ANES) 2-06 Total l 13:35: Volume: [place] 00 1,000, Start date: 05/01/16 7:35:00 CANDLES POURER, Stop date: 05/01/16 8:35:00 CANDLES POURER LR 1000 mL No Route: IV, M emoria INJ (ANES) 2-06 Total l 13:35: Volume: [place] 00 1,000, Start date: 05/01/16 7:35:00 CANDLES POURER, Stop date: 05/01/16 8:35:00 CANDLES POURER LR 1000 mL No Route: IV, M emoria INJ (ANES) 2-06 Total l 13:35: Volume: [place] 00 1,000, Start date: 05/01/16 7:35:00 CANDLES POURER, Stop date: 05/01/16 8:35:00 CANDLES POURER LR 1000 mL No Route: IV, M emoria INJ (ANES) 2-06 Total l 13:35: Volume: [place] 00 1,000, Start date: 05/01/16 7:35:00 CANDLES POURER, Stop date: 05/01/16 8:35:00 CANDLES POURER LR 1000 mL No Route: IV, M emoria INJ (ANES) 2-06 Total l 13:35: Volume: [place] 00 1,000, Start date: 05/01/16 7:35:00 CANDLES POURER, Stop date: 05/01/16 8:35:00 CANDLES POURER Calcium No 1,000 mL, Memor ia Chloride 2 Rate: 25 l 0.0014 12:57: ml/hr, [place] MEQ/ML / 00 Infuse Potassium over: 40 Chloride hr, Route: 0.004 IV, Dosing MEQ/ML / Weight Sodium 74.091 kg, Chloride Total 0.103 Volume: MEQ/ML / 1,000, Sodium Start Lactate date: 0.028 05/01/16 MEQ/ML 6:57:00 Injectable CANDLES POURER, Solution Duration: 30 day, Stop date: 05/31/16 6:56:00 CANDLES POURER Calcium 2017-0 No 1,000 mL, Memor ia Chloride 2-06 Rate: 25 l 0.0014 12:57: ml/hr, [place] MEQ/ML / 00 Infuse Potassium over: 40 Chloride hr, Route: 0.004 IV, Dosing MEQ/ML / Weight Sodium 74.091 kg, Chloride Total 0.103 Volume: MEQ/ML / 1,000, Sodium Start Lactate date: 0.028 05/01/16 MEQ/ML 6:57:00 Injectable CANDLES POURER, Solution Duration: 30 day, Stop date: 05/31/16 6:56:00 CANDLES POURER Calcium 2017-0 No 1,000 mL, Memor ia Chloride 2-06 Rate: 25 l 0.0014 12:57: ml/hr, [place] MEQ/ML / 00 Infuse Potassium over: 40 Chloride hr, Route: 0.004 IV, Dosing MEQ/ML / Weight Sodium 74.091 kg, Chloride Total 0.103 Volume: MEQ/ML / 1,000, Sodium Start Lactate date: 0.028 05/01/16 MEQ/ML 6:57:00 Injectable CANDLES POURER, Solution Duration: 30 day, Stop date: 05/31/16 6:56:00 CANDLES POURER Calcium 2017-0 No 1,000 mL, Memor ia Chloride 2-06 Rate: 25 l 0.0014 12:57: ml/hr, [place] MEQ/ML / 00 Infuse Potassium over: 40 Chloride hr, Route: 0.004 IV, Dosing MEQ/ML / Weight Sodium 74.091 kg, Chloride Total 0.103 Volume: MEQ/ML / 1,000, Sodium Start Lactate date: 0.028 05/01/16 MEQ/ML 6:57:00 Injectable CANDLES POURER, Solution Duration: 30 day, Stop date: 05/31/16 6:56:00 CANDLES POURER Calcium 2017-0 No 1,000 mL, Memor ia Chloride 2-06 Rate: 25 l 0.0014 12:57: ml/hr, [place] MEQ/ML / 00 Infuse Potassium over: 40 Chloride hr, Route: 0.004 IV, Dosing MEQ/ML / Weight Sodium 74.091 kg, Chloride Total 0.103 Volume: MEQ/ML / 1,000, Sodium Start Lactate date: 0.028 17 MEQ/ML 6:57:00 Injectable CANDLES POURER, Solution Duration: 30 day, Stop date: 05/31/16 6:56:00 CANDLES POURER Calcium 2017-0 No 1,000 mL, Memor ia Chloride 2-06 Rate: 25 l 0.0014 12:57: ml/hr, [place] MEQ/ML / 00 Infuse Potassium over: 40 Chloride hr, Route: 0.004 IV, Dosing MEQ/ML / Weight Sodium 74.091 kg, Chloride Total 0.103 Volume: MEQ/ML / 1,000, Sodium Start Lactate date: 0.028 05/01/17 MEQ/ML 6:57:00 Injectable CANDLES POURER, Solution Duration: 30 day, Stop date: 05/31/16 6:56:00 CANDLES POURER Calcium 2017-0 No 1,000 mL, Memor ia Chloride 2-06 Rate: 25 l 0.0014 12:57: ml/hr, [place] MEQ/ML / 00 Infuse Potassium over: 40 Chloride hr, Route: 0.004 IV, Dosing MEQ/ML / Weight Sodium 74.091 kg, Chloride Total 0.103 Volume: MEQ/ML / 1,000, Sodium Start Lactate date: 0.028 17 MEQ/ML 6:57:00 Injectable CANDLES POURER, Solution Duration: 30 day, Stop date: 05/31/16 6:56:00 CANDLES POURER ceFAZolin No Notes: Memori a 2-06 Same as: l 12:00: Ancef [place] 00 BD Normal No Notes: Memori a [...] 2-06 (Same as: l Flush 12:00: BD [place] 00 Posiflush) ceFAZolin No Notes: Memori a 2-06 Same as: l 12:00: Ancef [place] 00 BD Normal No Notes: Memori a Saline 2-06 (Same as: l Flush 12:00: BD [place] 00 Posiflush) ceFAZolin No Notes: Memori a 2-06 Same as: l 12:00: Ancef [place] 00 BD Normal No Notes: Memori a Saline 2-06 (Same as: l Flush 12:00: BD [place] 00 Posiflush) ceFAZolin No Notes: Memori a 2-06 Same as: l 12:00: Ancef [place] 00 BD Normal No Notes: Memori a Saline 2-06 (Same as: l Flush 12:00: BD [place] 00 Posiflush) ceFAZolin No Notes: Memori a 2-06 Same as: l 12:00: Ancef [place] 00 BD Normal No Notes: Memori a Saline 2-06 (Same as: l Flush 12:00: BD [place] 00 Posiflush) Esomeprazol Yes 20 mg = [...] 160 MG Refill(s) Oral Tablet [Bactrim] Sulfamethox 2016 Yes 1 tab, PO, Memoria azole 800 2-24 BID, X 7 l MG / 00:52: day, # 14 [place] Trimethopri 00 tab, 0 m 160 MG Refill(s) Oral Tablet [Bactrim] Sulfamethox 2015-03 Yes 1 tab, PO, Memoria azole 800 2-24 BID, X 7 l MG / 00:52: day, # 14 [place] Trimethopri 00 tab, 0 m 160 MG [...] l MG / 00:52: day, # 14 [place] Trimethopri 00 tab, 0 m 160 MG Refill(s) Oral Tablet [Bactrim] Motrin 2015-03 No 800 mg, Memoria 2-23 Route: PO, l 22:27: Drug form: [place] 00 TAB, ONCE, Dosing Weight 72.727, kg, Priority: STAT, Start date: 03/17/16 16:27:00 CANDLES POURER, Stop date: 03/17/16 16:27:00 CANDLES POURER Sodium 2015-03 No 1,000 mL, Memori a Chloride 2-23 2,000 l 0.154 22:27: ml/hr, [place] MEQ/ML 00 Infuse Injectable Over: 30 Solution minutes, Route: IV, ONCE, Priority: STAT, Dosing Weight 72.727 kg, Start date: 03/17/16 16:27:00 CANDLES POURER, Duration: 1 doses or times, Stop date: 03/17/16 16:27:00 CANDLES POURER Saline 2015-03 No Notes: [facility] Flush 0.9% 2-23 (Same as: l 22:27: BD [place] 00 Posiflush) Motrin 2015-03 No 800 mg, Memoria 2-23 Route: PO, l 22:27: Drug form: [place] 00 TAB, ONCE, Dosing Weight 72.727, kg, Priority: STAT, Start date: 03/17/16 16:27:00 CANDLES POURER, Stop date: 03/17/16 16:27:00 CANDLES POURER Sodium 2016- No 1,000 mL, Memori a Chloride 2-23 2,000 l 0.154 22:27: ml/hr, [place] MEQ/ML 00 Infuse Injectable Over: 30 Solution minutes, Route: IV, ONCE, Priority: STAT, Dosing Weight 72.727 kg, Start date: 03/17/16 16:27:00 CANDLES POURER, Duration: 1 doses or times, Stop date: 03/17/16 16:27:00 CANDLES POURER Saline 2015-03 No Notes: [facility] Flush 0.9% 2-23 (Same as: l 22:27: BD [place] 00 Posiflush) Motrin 2015-03 No 800 mg, Memoria 2-23 Route: PO, l 22:27: Drug form: [place] 00 TAB, ONCE, Dosing Weight 72.727, kg, Priority: STAT, Start date: 03/17/16 16:27:00 CANDLES POURER, Stop date: 03/17/16 16:27:00 CANDLES POURER Sodium 2015- No 1,000 mL, Memori a Chloride 2-23 2,000 l 0.154 22:27: ml/hr, [place] MEQ/ML 00 Infuse Injectable Over: 30 Solution minutes, Route: IV, ONCE, Priority: STAT, Dosing Weight 72.727 kg, Start date: 03/17/16 16:27:00 CANDLES POURER, Duration: 1 doses or times, Stop date: 03/17/16 16:27:00 CANDLES POURER Saline 2015-03 No Notes: [facility] Flush 0.9% 2-23 (Same as: l 22:27: BD [place] 00 Posiflush) Motrin 2015-03 No 800 mg, Memoria 2-23 Route: PO, l 22:27: Drug form: [place] 00 TAB, ONCE, Dosing Weight 72.727, kg, Priority: STAT, Start date: 03/17/16 16:27:00 CANDLES POURER, Stop date: 03/17/16 16:27:00 CANDLES POURER Sodium 2015- No 1,000 mL, Memori a Chloride 2-23 2,000 l 0.154 22:27: ml/hr, [place] MEQ/ML 00 Infuse Injectable Over: 30 Solution minutes, Route: IV, ONCE, Priority: STAT, Dosing Weight 72.727 kg, Start date: 03/17/16 16:27:00 CANDLES POURER, Duration: 1 doses or times, Stop date: 03/17/16 16:27:00 CANDLES POURER Saline 2015-03 No Notes: [facility] Flush 0.9% 2-23 (Same as: l 22:27: BD [place] 00 Posiflush) Motrin 2015-03 No 800 mg, Memoria 2-23 Route: PO, l 22:27: Drug form: [place] 00 TAB, ONCE, Dosing Weight 72.727, kg, Priority: STAT, Start date: 03/17/16 16:27:00 CANDLES POURER, Stop date: 03/17/16 16:27:00 CANDLES POURER Sodium 2015-03 No 1,000 mL, Memori a Chloride 2-23 2,000 l 0.154 22:27: ml/hr, [place] MEQ/ML 00 Infuse Injectable Over: 30 Solution minutes, Route: IV, ONCE, Priority: STAT, Dosing Weight 72.727 kg, Start date: 03/17/16 16:27:00 CANDLES POURER, Duration: 1 doses or times, Stop date: 03/17/16 16:27:00 CANDLES POURER Saline 2015-03 No Notes: [facility] Flush 0.9% 2-23 (Same as: l 22:27: BD [place] 00 Posiflush) Motrin 2015-03 No 800 mg, [facility]oria 2-23 Route: PO, l 22:27: Drug form: [place] 00 TAB, ONCE, Dosing Weight 72.727, kg, Priority: STAT, Start date: 03/17/16 16:27:00 CANDLES POURER, Stop date: 03/17/16 16:27:00 CANDLES POURER Sodium 2015- No 1,000 mL, Memori a Chloride 2-23 2,000 l 0.154 22:27: ml/hr, [place] MEQ/ML 00 Infuse Injectable Over: 30 Solution minutes, Route: IV, ONCE, Priority: STAT, Dosing Weight 72.727 kg, Start date: 03/17/16 16:27:00 CANDLES POURER, Duration: 1 doses or times, Stop date: 03/17/16 16:27:00 CANDLES POURER Saline 2015-03 No Notes: [facility] Flush 0.9% 2-23 (Same as: l 22:27: BD [place] Posiflush) Motrin 2015-03 No 800 mg, [facility] 2-23 Route: PO, l 22:27: Drug form: [place] 00 TAB, ONCE, Dosing Weight 72.727, kg, Priority: STAT, Start date: 03/17/16 16:27:00 CANDLES POURER, Stop date: 03/17/16 16:27:00 CANDLES POURER Sodium 2015-03 No 1,000 mL, Memori a Chloride 2-23 2,000 l 0.154 22:27: ml/hr, [place] MEQ/ML 00 Infuse Injectable Over: 30 Solution minutes, Route: IV, ONCE, Priority: STAT, Dosing Weight 72.727 kg, Start date: 03/17/16 16:27:00 CANDLES POURER, Duration: 1 doses or times, Stop date: 03/17/16 16:27:00 CANDLES POURER Saline 2015-03 No Notes: Mem[facility] Flush 0.9% [...] [Flexeril] # 30 tab, 0 Refill(s) Cyclobenzap 2016-0 Yes 10 mg = 1 M emoria rine 5-10 tab, PO, l hydrochlori 16:02: TID, PRN He rmann de 10 MG 00 for spasm, Oral Tablet X 10 day, [Flexeril] # 30 tab, 0 Refill(s) Cyclobenzap 2016-0 Yes 10 mg = 1 M emoria rine 5-10 tab, PO, l hydrochlori 16:02: TID, PRN He rmann de 10 MG 00 for spasm, Oral Tablet X 10 day, [Flexeril] # 30 tab, 0 Refill(s) Cyclobenzap 2016-0 Yes 10 mg = 1 M emoria [...] not exceed l #3 15:03: 4gm/day of [place] 00 acetaminop hen. (Same as: Tylenol with Codeine # 3) cyclobenzap No Notes: Yamil brandi rine 5-10 (Same As: l 15:03: Flexeril) Arthur acetaminoph No Notes: Do M emoria en-codeine 5-10 not exceed l #3 15:03: 4gm/day of [place] 00 acetaminop hen. (Same as: Tylenol with [...] not exceed l #3 15:03: 4gm/day of [place] acetaminop hen. (Same as: Tylenol with Codeine [...] tab, PO, l Coated 22:58: Daily, # [place] Tablet 00 90 tab, 3 Refill(s), other Aspirin 81 Yes 81 mg = 1 Me moria MG Enteric 1-14 tab, PO, l Coated 22:58: Daily, # [place] Tablet 00 90 tab, 3 Refill(s), other Aspirin 81 2016 Yes 81 mg = 1 Me moria MG Enteric 1-14 tab, PO, l Coated 22:58: Daily, # [place] Tablet 00 90 tab, 3 Refill(s), other Aspirin 81 2016-0 Yes 81 mg = 1 Me moria [...] tab, PO, l Coated 22:58: Daily, # [place] Tablet 00 90 tab, 3 Refill(s), other Aspirin 81 2016 Yes 81 mg = 1 Me moria MG Enteric 1-14 tab, PO, l Coated 22:58: Daily, # [place] Tablet 00 90 tab, 3 Refill(s), other Aspirin 325 No Notes: (Do Memoria MG Enteric 1-14 Not Crush) l Coated 15:00: Do not [place] Tablet 00 crush or chew. Aspirin 325 No Notes: (Do Memoria MG Enteric 1-14 Not Crush) l Coated 15:00: Do not [place] Tablet 00 crush or chew. Aspirin 325 No Notes: (Do Memoria MG Enteric 1-14 Not Crush) l Coated 15:00: Do not [place] Tablet 00 crush or chew. Aspirin 325 No Notes: (Do Mem[facility] MG Enteric 1-14 Not Crush) l Coated 15:00: Do not [place] Tablet 00 crush or chew. Aspirin 325 No Notes: (Do Mem[facility] MG Enteric 1-14 Not Crush) l Coated 15:00: Do not [place] Tablet 00 crush or chew. Aspirin 325 No Notes: (Do [facility] MG Enteric 1-14 Not Crush) l Coated 15:00: Do not [place] Tablet 00 crush or chew. Aspirin 325 No Notes: (Do Mem[facility] MG Enteric 1-14 Not Crush) l Coated 15:00: Do not [place] Tablet 00 crush or chew. Saline No Notes: [facility] Flush 0.9% 1-14 (Same as: l 03:00: BD [place] 00 Posiflush) Saline No Notes: [facility] Flush 0.9% 1-14 (Same as: l 03:00: BD [place] 00 Posiflush) Saline No Notes: [facility] Flush 0.9% 1-14 (Same as: l 03:00: BD [place] 00 Posiflush) Saline No Notes: [facility] Flush 0.9% 1-14 (Same as: l 03:00: BD [place] 00 Posiflush) Saline No Notes: [facility] Flush 0.9% 1-14 (Same as: l 03:00: BD [place] 00 Posiflush) Saline No Notes: [facility] Flush 0.9% 1-14 (Same as: l 03:00: BD [place] 00 Posiflush) Saline No Notes: [facility] Flush 0.9% 1-14 (Same as: l 03:00: BD [place] 00 Posiflush) Sodium 2016-0 No 1,000 mL, Memori a Chloride 1-14 Rate: 125 l 0.154 01:28: ml/hr, [place] MEQ/ML 00 Infuse Injectable over: 8 Solution hr, Route: IV, Dosing Weight 80.455 kg, Total Volume: 1,000, Start date: 04/07/15 19:28:00, Duration: 30 day, Stop date: 05/07/15 19:27:00 Sodium 2016-0 No 1,000 mL, Memori a Chloride 1-14 Rate: 125 l 0.154 01:28: ml/hr, [place] MEQ/ML 00 Infuse Injectable over: 8 Solution hr, Route: IV, Dosing Weight 80.455 kg, Total Volume: 1,000, Start date: 04/07/15 19:28:00, Duration: 30 day, Stop date: 05/07/15 19:27:00 Sodium 2016-0 No 1,000 mL, Mem[facility] a Chloride 1-14 Rate: 125 l 0.154 01:28: ml/hr, [place] MEQ/ML 00 Infuse Injectable over: 8 Solution [...] 1-14 Rate: 125 l 0.154 01:28: ml/hr, [place] MEQ/ML 00 Infuse Injectable over: 8 Solution hr, Route: IV, Dosing Weight 80.455 kg, Total Volume: 1,000, Start date: 04/07/15 19:28:00, Duration: 30 day, Stop date: 05/07/15 19:27:00 Sodium 2016-0 No 1,000 mL, Mem[facility] a Chloride 1-14 Rate: 125 l 0.154 01:28: ml/hr, [place] MEQ/ML 00 Infuse Injectable over: 8 Solution hr, Route: IV, Dosing Weight 80.455 kg, Total Volume: 1,000, Start date: 04/07/15 19:28:00, Duration: 30 day, Stop date: 05/07/15 19:27:00 Sodium 2016-0 No 1,000 mL, Memori a Chloride 1-14 Rate: 125 l 0.154 01:28: ml/hr, [place] MEQ/ML 00 Infuse Injectable over: 8 Solution hr, Route: IV, Dosing Weight 80.455 kg, Total Volume: 1,000, Start date: 04/07/15 19:28:00, Duration: 30 day, Stop date: 05/07/15 19:27:00 metoprolol 0 No Notes: Memor ia tartrate 1-14 (Same as: l 00:00: Lopressor) metoprolol 0 No Notes: Memor ia tartrate 1-14 (Same as: l 00:00: Lopressor) metoprolol No Notes: Memor ia tartrate 1-14 (Same as: l 00:00: Lopressor) metoprolol No Notes: Memor ia tartrate 1-14 (Same as: l 00:00: Lopressor) metoprolol 2016-0 No Notes: Memor ia tartrate 1-14 (Same as: l 00:00: Lopressor) [place] 00 metoprolol No Notes: Memor ia tartrate 1-14 (Same as: l 00:00: Lopressor) [place] 00 metoprolol No Notes: Memor ia tartrate 1-14 (Same as: l 00:00: Lopressor) [place] 00 Saline No Notes: [facility] Flush 0.9% - (Same as: l 20:15: BD [place] 00 Posiflush) Nitroglycer No Notes: Yamil brandi [...] 0.9% 04-07 (Same as: l 20:15: BD [place] 00 Posiflush) Nitroglycer No Notes: Yamil brandi in 04-07 (Same l 20:15: as:Nitroqu [place] 00 ick, Nitrostat) "Do Not Crush" Sublingual tablet Saline No Notes: [facility] Flush 0.9% 04-07 (Same as: l 20:15: BD [place] 00 Posiflush) Nitroglycer No Notes: Yamil brandi [...] brandi in 04-07 (Same l 20:15: as:Nitroqu [place] 00 ick, Nitrostat) "Do Not Crush" Sublingual tablet Sodium 2016-0 No 1,000 mL, Memori a Chloride 1-13 1,000 l 0.154 15:37: ml/hr, [place] MEQ/ML 00 Infuse Injectable Over: 1 Solution hr, Route: IV, ONCE, Priority: STAT, Dosing Weight 80.455 kg, Start date: 04/07/15 9:37:00, Duration: 1 doses or times, Stop date: 04/07/15 9:37:00 Sodium 2016-0 No 1,000 mL, Mem[facility] a Chloride 1-13 1,000 l 0.154 15:37: ml/hr, [place] MEQ/ML 00 Infuse Injectable Over: 1 Solution hr, Route: IV, ONCE, Priority: STAT, Dosing Weight 80.455 kg, Start date: 04/07/15 9:37:00, Duration: 1 doses or times, Stop date: 04/07/15 9:37:00 Sodium 2016-0 No 1,000 mL, Mem[facility] a Chloride 1-13 1,000 l 0.154 15:37: ml/hr, [place] MEQ/ML 00 Infuse Injectable Over: 1 Solution [...] Chloride 1-13 1,000 l 0.154 15:37: ml/hr, [place] MEQ/ML 00 Infuse Injectable Over: 1 Solution [...] Nitrostat) "Do Not Crush" Sublingual tablet Nitroglycer 2015- No Notes: Yamil brandi in 0.4 MG [...] Memoria 1-13 Take with l 13:23: food. Saline No Notes: [facility] Flush 0.9% 1-13 (Same as: l 13:23: BD [place] 00 Posiflush) Aspirin No Notes: [facility] 1-13 Take with l 13:23: food. Saline No Notes: [facility] Flush 0.9% 1-13 (Same as: l 13:23: BD [place] 00 Posiflush) Aspirin No Notes: [facility] 1-13 Take with l 13:23: food. Saline No Notes: [facility] Flush 0.9% 1-13 (Same as: l 13:23: BD [place] 00 Posiflush) Aspirin No Notes: [facility] 1-13 Take with l 13:23: food. [place] Saline No Notes: [facility] Flush 0.9% 1-13 (Same as: l 13:23: BD [place] 00 Posiflush) Aspirin No Notes: [facility] 1-13 Take with l 13:23: food. Saline No Notes: [facility] Flush 0.9% 1-13 (Same as: l 13:23: BD [place] 00 Posiflush) Aspirin No Notes: [facility] 1-13 Take with l 13:23: food. [place] 00 Saline No Notes: [facility] Flush 0.9% 1-13 (Same as: l 13:23: BD [place] 00 Posiflush) Aspirin No Notes: [facility] 1-13 Take with l 13:23: food. [place] 00 Saline No Notes: [facility] Flush 0.9% 1-13 (Same as: l 13:23: BD [place] 00 Posiflush) Miralax No Notes: [facility] 8-14 Dissolve l 23:38: in 8 oz of [place] 00 water or juice. (Same as: Miralax) Miralax No Notes: [facility] 8-14 Dissolve l 23:38: in 8 oz of [place] 00 water or juice. (Same as: Miralax) Miralax No Notes: [facility] 8-14 Dissolve l 23:38: in 8 oz of [place] 00 water or juice. (Same as: Miralax) Miralax No Notes: [facility] 8-14 Dissolve l 23:38: in 8 oz of [place] 00 water or juice. (Same as: Miralax) Miralax No Notes: [facility] 8-14 Dissolve l 23:38: in 8 oz of [place] 00 water or juice. (Same as: Miralax) Miralax No Notes: [facility] 8-14 Dissolve l 23:38: in 8 oz of [place] 00 water or juice. (Same as: Miralax) Miralax No Notes: [facility] 8-14 Dissolve l 23:38: in 8 oz of [place] 00 water or juice. (Same as: Miralax) Tylenol No Notes: Do Memor ia 8-14 not exceed l 23:35: 4 gm/day. Arthur (Same as: Tylenol) Tylenol No Notes: Do Memor ia 8-14 not exceed l 23:35: 4 gm/day. [place] (Same as: Tylenol) Tylenol No Notes: Do Memor ia 8-14 not exceed l 23:35: 4 gm/day. [place] (Same as: Tylenol) Tylenol No Notes: Do [...] l MG / 15:31: day, # 10 [place] Trimethopri 00 tab, 0 m 160 MG [...] 160 MG Refill(s) Oral Tablet [Bactrim] Sulfamethox 2015-0 Yes 1 tab, PO, Memoria azole 800 8-14 BID, X 5 l MG / 15:31: day, # 10 [place] Trimethopri 00 tab, 0 m 160 MG Refill(s) Oral Tablet [Bactrim] ferrous 2014-0 Yes 325 mg, Memoria sulfate 325 8-14 PO, TID, # l MG Oral 14:52: 90 tab, 1 Elisa nn Tablet 00 Refill(s) ferrous 2014-0 Yes 325 mg, Memoria sulfate 325 8-14 PO, TID, # l MG Oral 14:52: 90 tab, 1 Elisa nn Tablet 00 Refill(s) ferrous 2014-0 Yes 325 mg, [facility] sulfate 325 8-14 PO, TID, # l MG Oral 14:52: 90 tab, 1 Elisa nn Tablet 00 Refill(s) ferrous 2014-0 Yes 325 mg, Mem[facility] sulfate 325 8-14 PO, TID, # l MG Oral 14:52: 90 tab, 1 Elisa nn Tablet 00 Refill(s) ferrous 2014-0 Yes 325 mg, Mem[facility] sulfate 325 8-14 PO, TID, # l MG Oral 14:52: 90 tab, 1 Elisa nn Tablet 00 Refill(s) ferrous 2014-0 Yes 325 mg, [facility] sulfate 325 8-14 PO, TID, # l MG Oral 14:52: 90 tab, 1 Elisa nn Tablet 00 Refill(s) ferrous 2014-0 Yes 325 mg, [facility] sulfate 325 8-14 PO, TID, # l MG Oral 14:52: 90 tab, 1 Elisa nn Tablet 00 Refill(s) ferrous No Notes: Memoria sulfate 8-14 Give with l 14:50: food. "Do Not Crush" ferrous No Notes: Memoria sulfate 8-14 Give with l 14:50: food. "Do Not Crush" ferrous No Notes: [facility] sulfate 8-14 Give with l 14:50: food. "Do [place] 00 Not Crush" ferrous No Notes: [facility] sulfate 8-14 Give with l 14:50: food. "Do Not Crush" ferrous No Notes: [facility] sulfate 8-14 Give with l 14:50: food. "Do [place] 00 Not Crush" ferrous No Notes: [facility] sulfate 8-14 Give with l 14:50: food. "Do [place] 00 Not Crush" ferrous No Notes: [facility] sulfate 8-14 Give with l 14:50: food. "Do [place] 00 Not Crush" nitroglycer No Notes: Yamil [...] 8-14 mL, Route: l 01:34: IVP, Drug [place] 00 form: INJ, PRN, PRN Bradycardi a, [...] 30 day, Stop date: 12/05/14 20:33:00 nitroglycer 0 No Notes: Yamil brandi in 0.4 mg 8-14 (Same l sublingual 01:34: as:Nitroqu [place] tablet 00 ick, Nitrostat) "Do Not Crush" Sublingual tablet atropine No 0.5 mg, 5 Yamil brandi 8-14 mL, Route: l 01:34: IVP, Drug [place] 00 form: INJ, PRN, PRN Bradycardi a, Start date: 11/05/14 20:34:00, Duration: 30 day, Stop date: 12/05/14 20:33:00 nitroglycer 0 No Notes: Yamil brandi in 0.4 mg 8-14 (Same l sublingual 01:34: as:Nitroqu [place] tablet 00 ick, Nitrostat) "Do Not Crush" Sublingual tablet atropine 0 No 0.5 mg, 5 Yamil brandi 8-14 mL, Route: l 01:34: IVP, Drug [place] 00 form: INJ, PRN, PRN Bradycardi a, Start date: 11/05/14 20:34:00, Duration: 30 day, Stop date: 12/05/14 20:33:00 Saline 2015-0 No Notes: [facility] Flush 0.9% 8-14 Same [...] 0.9% 8-14 Same as: l 01:11: BD [place] Posiflush Sterile Saline No Notes: [facility] Flush 0.9% 8-14 Same as: l 01:11: BD [place] Posiflush Sterile Saline No Notes: [facility] Flush 0.9% 8-14 Same as: l 01:11: BD [place] 00 Posiflush Sterile Sulfamethox No Notes: One Memoria [...] DS tablet l MG / 22:00: = [place] Trimethopri 00 trimethopr m 160 MG im 160mg + Oral Tablet sulfametho [Bactrim] xazole 800 mg Dose based on trimethopr im component On empty stomach with a glass of water. 1 hr before meals (Same As: Bactrim DS, Septra DS) Sulfamethox No Notes: One [facility] azole 800 8-13 DS tablet l MG / 22:00: = [place] Trimethopri 00 trimethopr m 160 MG im [...] DS) Ceftriaxone No 1 gm, [facility] ia 8-13 Route: l 20:52: IVPB, Drug form: PDR/INJ, ONCE, Dosing Weight 71.364, kg, Priority: STAT, Start date: 11/05/14 15:52:00, Stop date: 11/05/14 15:52:00 Ceftriaxone 0 No 1 gm, Mem[facility] ia 8-13 Route: [...] ia 8-13 Route: l 20:52: IVPB, Drug [place] 00 form: PDR/INJ, ONCE, Dosing Weight 71.364, [...] a 8-13 Route: l 20:39: IVP, Drug [place] 00 form: INJ, ONCE, Dosing Weight 71.364, [...] a 8- Route: l 20:39: IVP, Drug [place] 00 form: INJ, ONCE, Dosing Weight 71.364, kg, Priority: STAT, Start date: 11/05/14 15:39:00, Stop date: 11/05/14 15:39:00 Ketorolac 2015-0 No 30 mg, Memori a 8- Route: l 20:39: IVP, Drug [place] 00 form: INJ, ONCE, Dosing Weight 71.364, kg, Priority: STAT, Start date: 11/05/14 15:39:00, Stop date: 11/05/14 15:39:00 Morphine 2015-0 No 2 mg, [facility] 8-13 Route: l 20:20: IVP, Drug [place] 00 form: INJ, ONCE, Dosing Weight 71.364, kg, Priority: STAT, Start date: 11/05/14 15:20:00, Stop date: 11/05/14 15:20:00 Morphine 2015-0 No 2 mg, [facility] 8-13 Route: l 20:20: IVP, Drug [place] 00 form: INJ, ONCE, Dosing Weight 71.364, kg, Priority: STAT, Start date: 11/05/14 15:20:00, Stop date: 11/05/14 15:20:00 Morphine 2015-0 No 2 mg, [facility] 8-13 Route: l 20:20: IVP, Drug [place] 00 form: INJ, ONCE, Dosing Weight 71.364, kg, Priority: STAT, Start date: 11/05/14 15:20:00, Stop date: 11/05/14 15:20:00 Morphine 2015-0 No 2 mg, [facility] 8-13 Route: l 20:20: IVP, Drug [place] 00 form: INJ, ONCE, Dosing Weight 71.364, kg, Priority: STAT, Start date: 11/05/14 15:20:00, Stop date: 11/05/14 15:20:00 Morphine 2015-0 No 2 mg, [facility] 8-13 Route: l 20:20: IVP, Drug [place] 00 form: INJ, ONCE, Dosing Weight 71.364, kg, Priority: STAT, Start date: 11/05/14 15:20:00, Stop date: 11/05/14 15:20:00 Morphine 2015-0 No 2 mg, [facility] 8-13 Route: l 20:20: IVP, Drug [place] 00 form: INJ, ONCE, Dosing Weight 71.364, kg, Priority: STAT, Start date: 11/05/14 15:20:00, Stop date: 11/05/14 15:20:00 Morphine 2015-0 No 2 mg, Memoria 8-13 Route: l 20:20: IVP, Drug [place] 00 form: INJ, ONCE, Dosing Weight 71.364, kg, Priority: STAT, Start date: 11/05/14 15:20:00, Stop date: 11/05/14 15:20:00 Aspirin 2015-0 No 324 mg, Memoria 8-13 Route: PO, l 19:58: ONCE, [place] 00 Dosing Weight 71.364, kg, Priority: STAT, Start date: 11/05/14 14:58:00, Stop date: 11/05/14 14:58:00 Saline 2015-0 No Notes: Memoria Flush 0.9% 8-13 Same as: l 19:58: BD [place] 00 Posiflush Sterile Aspirin No 324 mg, Memoria 8-13 Route: PO, l 19:58: ONCE, [place] 00 Dosing Weight 71.364, kg, Priority: STAT, Start date: 11/05/14 14:58:00, Stop date: 11/05/14 14:58:00 Saline No Notes: Memoria Flush 0.9% 8- Same as: l 19:58: BD [place] 00 Posiflush Sterile Aspirin No 324 mg, Memoria 8-13 Route: PO, l 19:58: ONCE, [place] 00 Dosing Weight 71.364, kg, Priority: STAT, Start date: 11/05/14 14:58:00, Stop date: 11/05/14 14:58:00 Saline No Notes: Memoria Flush 0.9% 8-13 Same as: l 19:58: BD [place] Posiflush Sterile Aspirin No 324 mg, Memoria 8-13 Route: PO, l 19:58: ONCE, Dosing Weight 71.364, kg, Priority: STAT, Start date: 11/05/14 14:58:00, Stop date: 11/05/14 14:58:00 Saline No Notes: Memoria Flush 0.9% 8- Same as: l 19:58: BD [place] Posiflush Sterile Aspirin No 324 mg, Memoria 8-13 Route: PO, l 19:58: ONCE, Dosing Weight 71.364, kg, Priority: STAT, Start date: 11/05/14 14:58:00, Stop date: 11/05/14 14:58:00 Saline No Notes: [facility] Flush 0.9% 8-13 Same as: l 19:58: BD [place] 00 Posiflush Sterile Aspirin No 324 mg, Memoria 8-13 Route: PO, l 19:58: ONCE, [place] 00 Dosing Weight 71.364, kg, Priority: STAT, [...] 11/03/14 10:14:00, Stop date: 11/03/14 10:14:00 Acetaminoph 0 No 1 tab, Yamil brandi en 300 MG / 11-03 Route: PO, l Codeine 15:14: Drug Form: Herm stevie Phosphate 00 TAB, 30 MG Oral Dosing Tablet Weight 77, [Tylenol kg, ONCE, with STAT, Codeine #3] Start date: 11/03/14 10:14:00, Stop date: 11/03/14 10:14:00 Acetaminoph 0 No 1 tab, Yamil brandi en 300 MG / 11-03 Route: PO, l Codeine 15:14: Drug Form: Herm stevie Phosphate 00 TAB, 30 MG Oral Dosing Tablet Weight 77, [Tylenol kg, ONCE, with STAT, Codeine #3] Start date: 11/03/14 10:14:00, Stop date: 11/03/14 10:14:00 Acetaminoph 0 No 1 tab, Yamil brandi en 300 MG / 11-03 Route: PO, l Codeine 15:14: Drug Form: Herm stevie Phosphate 00 TAB, 30 MG Oral Dosing Tablet Weight 77, [Tylenol kg, ONCE, with STAT, Codeine #3] Start date: 11/03/14 10:14:00, Stop date: 11/03/14 10:14:00 Acetaminoph 0 No 1 tab, Yamil brandi en 300 MG / 11-03 Route: PO, l Codeine 15:14: Drug Form: Herm stevie Phosphate 00 TAB, 30 MG Oral Dosing Tablet Weight 77, [Tylenol kg, ONCE, with STAT, Codeine #3] Start date: 11/03/14 10:14:00, Stop date: 11/03/14 10:14:00 Acetaminoph 0 No 1 tab, Yamil brandi en 300 MG / 11-03 Route: PO, l Codeine 15:14: Drug Form: Herm stevie Phosphate 00 TAB, 30 MG Oral Dosing Tablet Weight 77, [Tylenol kg, ONCE, with STAT, Codeine #3] Start date: 11/03/14 10:14:00, Stop date: 11/03/14 10:14:00 Acetaminoph 0 No 1 tab, Yamil brandi en 300 [...] viscous 7.5 mL Morphine No Notes: Memoria 8- (Same l 13:51: as:MORPhin [place] 00 e Sulfate) GI cocktail No Notes: Yamil brandi 8-11 G.I. l 13:51: Cocktail = [place] 00 antacid with simethicon e 22.5 mL - lidocaine viscous 7.5 mL Morphine No Notes: Memoria 8-11 (Same l 13:51: as:MORPhin [place] 00 e Sulfate) GI cocktail No Notes: Yamil brandi 8-11 G.I. l 13:51: Cocktail = [place] 00 antacid with simethicon e 22.5 mL - lidocaine viscous 7.5 mL Morphine No Notes: Memoria 8-11 (Same l 13:51: as:MORPhin [place] 00 e Sulfate) GI cocktail No Notes: Yamil brandi 8-11 G.I. l 13:51: Cocktail = [place] 00 antacid with simethicon e 22.5 mL [...] brandi 8-11 G.I. l 13:51: Cocktail = [place] 00 antacid with simethicon e 22.5 mL - lidocaine viscous 7.5 mL Morphine No Notes: Memoria 8-11 (Same l 13:51: as:MORPhin [place] 00 e Sulfate) GI cocktail No Notes: Yamil brandi 8-11 G.I. l 13:51: Cocktail = [place] 00 antacid with simethicon e 22.5 mL - lidocaine viscous 7.5 mL Morphine No Notes: Memoria 8-11 (Same l 13:51: as:MORPhin [place] 00 e Sulfate) Aspirin No Notes: Memoria 8-11 Take with l 13:50: food. [place] Saline No Notes: [facility] Flush 0.9% 8-11 (Same as: l 13:50: BD [place] 00 Posiflush) Aspirin No Notes: Memoria 8-11 Take with l 13:50: food. [place] 00 Saline No Notes: [facility] Flush 0.9% 8-11 (Same as: l 13:50: BD [place] 00 Posiflush) Aspirin No Notes: Memoria 8-11 Take with l 13:50: food. [place] Saline No Notes: [facility] Flush 0.9% 8-11 (Same as: l 13:50: BD [place] 00 Posiflush) Aspirin No Notes: Memoria 8-11 Take with l 13:50: food. [place] 00 Saline No Notes: [facility] Flush 0.9% 8-11 (Same as: l 13:50: BD [place] 00 Posiflush) Aspirin No Notes: Memoria 8-11 Take with l 13:50: food. [place] Saline No Notes: [facility]oria Flush 0.9% 8-11 (Same as: l 13:50: BD [place] 00 Posiflush) Aspirin No Notes: Memoria 8-11 Take with l 13:50: food. [place] Saline No Notes: [facility] Flush 0.9% 8-11 (Same as: l 13:50: BD [place] 00 Posiflush) Aspirin No Notes: Memoria 8-11 Take with l 13:50: food. [place] Saline No Notes: Mem[facility] Flush 0.9% 8-11 (Same as: l 13:50: BD [place] 00 Posiflush) ibuprofen 2012-03 Yes Spencer 600 mg = 1 Me moria 600 mg oral 2-14 Fayrweathe tab, PO, l tablet 00:41: r Q6H, as [place] 00 needed for fever, take with food, # 30 tab, 0 Refill(s)t emily with food ibuprofen 2012-03 Yes Spencer 600 mg = 1 Me moria 600 mg oral 2-14 Fayrweathe tab, PO, l tablet 00:41: r Q6H, as [place] 00 needed for fever, take with food, # 30 tab, 0 Refill(s)t emily with food ibuprofen 2012-03 Yes Spencer 600 mg = 1 Me moria 600 mg oral 2-14 Fayrweathe tab, PO, l tablet 00:41: r Q6H, as [place] 00 needed for fever, take with food, # 30 tab, 0 Refill(s)t emily with food ibuprofen 2012-03 Yes Specner 600 mg = 1 Me moria 600 mg oral 2-14 Fayrweathe tab, PO, l tablet 00:41: r Q6H, as [place] 00 needed for fever, take with food, # 30 tab, 0 Refill(s)t emily with food ibuprofen 2012-03 Yes Spencer 600 mg = 1 Me moria 600 mg oral 2-14 Fayrweathe tab, PO, l tablet 00:41: r Q6H, as [place] 00 needed for fever, take with food, [...] tab, 0 Refill(s)D issolve tab under tongue on 2012-03 Yes Spencer 100 mg = 1 Mem oria Perles 100 2-14 Fayrweathe cap, PO, l mg oral 00:40: r TID, # 21 Elisa nn capsule 00 cap, 0 Refill(s) ondansetron 2012-03 Yes Spencer 4 mg = 1 Me moria 4 mg oral 2-14 Fayrweathe tab, PO, l tablet, 00:40: r TID, [place] disintegrat 00 Nausea / ing Vomiting, Dissolve tab under tongue, # 10 tab, 0 Refill(s)D issolve tab under tongue on 2012-03 Yes Spencer 100 mg = [...] tab, 0 Refill(s)D issolve tab under tongue on 2012-03 Yes Spencer 100 mg = 1 Mem oria Perles 100 2-14 Fayrweathe cap, PO, l mg oral 00:40: r TID, # 21 Elisa nn capsule 00 cap, 0 Refill(s) ondansetron 2012-03 Yes Spencer 4 mg = 1 Me moria 4 mg oral 2-14 Fayrweathe tab, PO, l tablet, 00:40: r TID, [place] disintegrat 00 Nausea / ing Vomiting, Dissolve [...] tab, PO, l tablet, 00:40: r TID, [place] disintegrat 00 Nausea / ing Vomiting, Dissolve [...] Fayrweathe tab, l 00:19: r Route: PO, [place] 00 Drug form: TAB, ONCE, Dosing Weight [...] Fayrweathe tab, l 00:19: r Route: PO, [place] 00 Drug form: TAB, ONCE, Dosing Weight [...] Fayrweathe tab, l 00:19: r Route: PO, [place] 00 Drug form: TAB, ONCE, Dosing Weight [...] Fayrweathe tab, l 23:29: r Route: PO, [place] 00 Drug form: TAB, ONCE, Dosing Weight [...] Fayrweathe tab, l 23:29: r Route: PO, [place] 00 Drug form: TAB, ONCE, Dosing Weight [...] Fayrweathe tab, l 23:29: r Route: PO, [place] 00 Drug form: TAB, ONCE, Dosing Weight [...] 15:40:00, Stop date: 03/07/13 15:40:00(S mirta as: Loni SHAH) ondansetron 2012-03 No Spencer 4 mg, 1 [...] 03/07/13 15:40:00(S mirta as: Zofran ODT) ondansetron 2012- No Spencer 4 mg, 1 Mem oria 4 mg oral 2-13 Fayrweathe tab, l tablet, 21:40: r Route: PO, Herm stevie disintegrat 00 Drug form: ing TABDIS, ONCE, Dosing Weight 72.727, kg, Priority: STAT, Start date: 03/07/13 15:40:00, Stop date: 03/07/13 15:40:00(S mirta as: Zofran ODT) ondansetron 2012-03 No Psencer 4 mg, 1 Mem oria 4 mg [...] Herm stevie disintegrat 00 Drug form: ing ZE, ONCE, Dosing Weight 72.727, kg, Priority: STAT, Start date: 03/07/13 15:40:00, Stop date: 03/07/13 15:40:00(S mirta as: Zofran ODT) Zithromax 2012-03 Yes Carol A 250 mg = 1 Memoria Z-Onel 250 2-13 [place] tab, PO, l mg oral 17:57: er Daily, [place] tablet 00 TAKE 2 TABLETS ON DAY 1; TAKE 1 TABLET ON DAYS 2 - 5, # 1 Pack, 0 Refill(s)T EMILY 2 TABLETS ON DAY 1; TAKE 1 TABLET ON DAYS 2 - 5 Naprosyn 2012-03 Yes Carol A 500 mg = 1 Memoria 500 mg oral 2-13 [place] tab, PO, l tablet 17:57: er BID, for [place] 00 pain, # 20 tab, 0 Refill(s) Zofran ODT 2012-03 Yes Carol A 4 mg = 1 Memoria 4 mg oral 2-13 [place] tab, PO, l tablet, 17:57: er BID, [place] disintegrat Nausea and ing Vomiting, Dissolve tab under tongue, # 10 tab, 0 Refill(s)D issolve tab under tongue Zithromax 2012-03 Yes Carol A 250 mg = 1 Memoria Z-Onel 250 2-13 [place] tab, PO, l mg oral 17:57: er Daily, [place] tablet 00 TAKE 2 TABLETS ON DAY [...] PO, l tablet 17:57: er BID, for [place] 00 pain, # 20 tab, 0 Refill(s) [...] PO, l mg oral 17:57: er Daily, [place] tablet 00 TAKE 2 TABLETS ON DAY 1; TAKE 1 TABLET ON DAYS 2 - 5, # 1 Pack, 0 Refill(s)T EMILY 2 TABLETS ON DAY 1; TAKE 1 TABLET ON DAYS 2 - 5 Naprosyn 2012-03 Yes Carol A 500 mg = 1 Memoria 500 mg oral 2-13 [place] tab, PO, l tablet 17:57: er BID, for [place] 00 pain, # 20 tab, 0 Refill(s) Zofran ODT 2012-03 Yes Carol A 4 mg = 1 Memoria 4 mg oral 2-13 [place] tab, PO, l tablet, 17:57: er BID, [place] disintegrat 00 Nausea and ing Vomiting, Dissolve [...] 1 [facility] DAYS 2 - 5 [facility] Yes Carol A 500 mg = 1 Memoria 500 mg oral 2-13 [place] tab, PO, l tablet 17:57: er BID, for [place] 00 pain, # 20 tab, 0 Refill(s) Zofran ODT 2012-03 Yes Carol A 4 mg = 1 Memoria 4 mg oral 2-13 [place] tab, PO, l tablet, 17:57: er BID, [place] disintegrat 00 Nausea and ing Vomiting, Dissolve tab under tongue, # 10 tab, 0 Refill(s)D issolve tab under tongue thromax 2012-03 Yes Carol A 250 mg = 1 Memoria Z-Onel 250 2-13 [place] tab, PO, l mg oral 17:57: er Daily, [place] tablet 00 TAKE 2 TABLETS ON DAY 1; TAKE 1 TABLET ON DAYS 2 - 5, # 1 Pack, 0 Refill(s)T EMILY 2 TABLETS ON DAY 1; TAKE 1 TABLET ON DAYS 2 - 5 [facility] 2012-03 Yes Carol A 500 mg = 1 Memoria 500 mg oral 2-13 [place] tab, PO, l tablet 17:57: er BID, for [place] 00 pain, # 20 tab, 0 Refill(s) Zofran ODT 2012-03 Yes Carol A 4 mg = 1 Memoria 4 mg oral 2-13 [place] tab, PO, l tablet, 17:57: er BID, [place] disintegrat 00 Nausea and ing Vomiting, Dissolve tab under tongue, # 10 tab, 0 Refill(s)D issolve tab under tongue Zithromax 2012-03 Yes Carol A 250 mg = 1 Memoria Z-Onel 250 2-13 [place] tab, PO, l mg oral 17:57: er Daily, [place] tablet 00 TAKE 2 TABLETS ON DAY 1; TAKE 1 TABLET ON DAYS 2 - 5, # 1 Pack, 0 Refill(s)T EMILY 2 TABLETS ON DAY 1; TAKE 1 TABLET ON DAYS 2 - 5 Naprosyn 2012-03 Yes Carol A 500 mg = 1 Memoria 500 mg oral 2-13 [place] tab, PO, l tablet 17:57: er BID, for [place] 00 pain, # 20 tab, 0 Refill(s) Zofran ODT 2012-03 Yes Carol A 4 mg = 1 Memoria 4 mg oral 2-13 [place] tab, PO, l tablet, 17:57: er BID, [place] disintegrat 00 Nausea and ing Vomiting, Dissolve [...] mL, Route: l 15:37: er IVP, Drug [place] 00 form: INJ, ONCE, Dosing Weight 72.727, [...] [place] Rate: l 0.9% 15:37: er 1,000 [place] (Bolus) IV 00 ml/hr, 1,000 mL Infuse [...] mL, Route: l 15:37: er IVP, Drug [place] 00 form: INJ, ONCE, Dosing Weight 72.727, [...] [place] Rate: l 0.9% 15:37: er 1,000 [place] (Bolus) IV 00 ml/hr, 1,000 mL Infuse [...] mL, Route: l 15:37: er IVP, Drug [place] 00 form: INJ, ONCE, Dosing Weight 72.727, kg, Priority: STAT, Start date: 03/07/13 9:37:00, Stop date: 03/07/13 9:37:00(Sa me as:MORPhin e Sulfate) Zofran 2012-03 No Carol A 4 mg, 2 Mem oria 2-13 [place] mL, Route: l 15:37: er IVP, Drug [place] 00 form: INJ, ONCE, Dosing Weight 72.727, kg, Priority: STAT, Start date: 03/07/13 9:37:00, Stop date: 03/07/13 9:37:00([facility] as: Zofran) acetaminoph 2012-03 No [...] Start date: 03/07/13 9:37:00, Stop date: 03/07/13 9:37:00([facility] As: Rocephin). Use with 100ml NS mini-bag PLUS and infuse over 30 min Sodium 2012-03 No Carol A 1,000 mL, M emoria Chloride 2-13 [place] Rate: l 0.9% 15:37: er 1,000 [place] (Bolus) IV 00 ml/hr, 1,000 mL Infuse [...] 9:37:00, Duration: 30 day, Stop date: 04/06/13 9:36:00([facility] as: BD Posiflush) morphine 2012-03 No Carol A 4 mg, 1 M emoria Sulfate 2-13 [place] mL, Route: l 15:37: er IVP, Drug [place] 00 form: INJ, ONCE, Dosing Weight 72.727, kg, Priority: STAT, Start date: 03/07/13 9:37:00, Stop date: 03/07/13 9:37:00([facility] as:MORPhin e Sulfate) Zofran 2012-03 No Carol A 4 mg, 2 Mem oria 2-13 [place] mL, Route: l 15:37: er IVP, Drug [place] 00 form: INJ, ONCE, Dosing Weight 72.727, kg, Priority: STAT, Start date: 03/07/13 9:37:00, Stop date: 03/07/13 9:37:00([facility] as: Zofran) acetaminoph 2012-03 No [...] Start date: 03/07/13 9:37:00, Stop date: 03/07/13 9:37:00([facility] As: Rocephin). Use with 100ml [...] mL, Route: l 15:37: er IVP, Drug [place] 00 form: INJ, ONCE, Dosing Weight 72.727, [...] [place] Rate: l 0.9% 15:37: er 1,000 [place] (Bolus) IV 00 ml/hr, 1,000 mL Infuse [...] [place] Rate: l 0.9% 15:37: er 1,000 [place] (Bolus) IV 00 ml/hr, 1,000 mL Infuse [...] mL, Route: l 15:37: er IVP, Drug [place] 00 form: INJ, ONCE, Dosing Weight 72.727, kg, Priority: STAT, Start date: 03/07/13 9:37:00, Stop date: 03/07/13 9:37:00(Sa me as:MORPhin e Sulfate) Zofran 2012-03 No Carol A 4 mg, 2 Mem oria 2-13 [place] mL, Route: l 15:37: er IVP, Drug [place] 00 form: INJ, ONCE, Dosing Weight 72.727, kg, Priority: STAT, Start date: 03/07/13 9:37:00, Stop date: 03/07/13 9:37:00([facility] as: Zofran) acetaminoph 2012-03 No Carol A 650 mg, 2 Memoria en 2-13 [place] tab, l 15:37: er Route: PO, [place] 00 Drug form: TAB, ONCE, Dosing Weight [...] Start date: 03/07/13 9:37:00, Stop date: 03/07/13 9:37:00([facility] As: Rocephin). Use with 100ml [...] Duration: 30 day, Stop date: 04/06/13 9:36:00(Sa pr as: BD Posiflush) acetaminoph 2012-03 No Nash 1,000 mg, M emoria en 05-08 Binu 2 tab, l 15:19: Cesta Route: PO, Che[place] n 00 Drug form: TAB, ONCE, Dosing Weight 72.727, kg, Start date: 03/07/13 9:19:00, Stop date: 03/07/13 9:19:00Max acetaminop hen 4000 mg/day (4 gm/day). (Same as: Tylenol Extra Strength) acetaminoph 2012-03 No Nash 1,000 mg, [place] emoria en 05-08 Binu 2 tab, l 15:19: Cesta Route: PO, Che[place] n 00 Drug form: TAB, ONCE, Dosing Weight 72.727, kg, Start date: 03/07/13 9:19:00, Stop date: 03/07/13 9:19:00Max acetaminop hen 4000 mg/day (4 gm/day). (Same as: Tylenol Extra Strength) acetaminoph 2012-03 No Nash 1,000 mg, [place] emoria en 05-08 Binu 2 tab, l [...] Strength) acetaminoph 2012-03 No Nash 1,000 mg, [place] emoria 05-08 Binu 2 tab, l 15:19: Cesta [...] blood 2021-10-18 18:30:00 135 mm[Hg] Univer sity of pressure [facility] Diastolic blood 2021-10-18 18:30:00 92 mm[Hg] Unive [facility]ity of [facility] [place] [place] [facility] Heart rate 2021-10-18 18:30:00 50 /min [facility] Respiratory rate 2021-10-18 18:30:00 13 /min Univ ersity of [facility] Oxygen saturation in 2021-10-18 18:30:00 100 /min [facility] blood by [place] [facility] P[facility] oximetry [facility] Body temperature 2021-10-18 15:30:00 37.11 Kristy [facility] ersity of [facility] [place] Body height 2021-10-18 15:30:00 165.1 cm [facility] [place] Body weight 2021-10-18 15:30:00 88.451 kg [facility] BMI 2021-10-18 15:30:00 32.45 kg/m2 [facility] Systolic blood 2021-09-24 18:30:00 112 mm[Hg] Univer [facility]ity of [facility] Diastolic blood 2021-09-24 18:30:00 79 mm[Hg] Unive rsity of pressure [facility] [place] Heart rate 2021-09-24 18:30:00 60 /min [facility] Respiratory rate 2021-09-24 18:30:00 12 /min [facility] Oxygen saturation in 2021-09-24 18:30:00 100 /min [facility] Arterial blood by [facility] liz Pulse oximetry Branch Body temperature 2021-09-24 16:20:00 36.56 Kristy [facility] Body height 2021-09-24 16:20:00 165.1 cm [facility] Body weight 2021-09-24 16:20:00 88.451 kg [facility] BMI 2021-09-24 16:20:00 32.45 kg/m2 [facility] Systolic blood 2021-04-10 21:57:00 132 mm[Hg] [facility] Diastolic blood 2021-04-10 21:57:00 92 mm[Hg] [facility]ive [facility]ity [facility] Heart rate 2021-04-10 21:57:00 71 /min [facility] Respiratory rate 2021-04-10 21:57:00 16 /min [facility] Oxygen saturation in 2021-04-10 21:57:00 100 /min [facility] Arterial blood by [facility] liz Pulse oximetry Branch Body temperature 2021-04-10 18:40:00 37.11 Kristy [facility] Body height 2021-04-10 18:40:00 162.6 cm [facility] Body weight 2021-04-10 18:40:00 90.719 kg [facility] BMI 2021-04-10 18:40:00 34.33 kg/m2 [facility] Systolic blood 2021-04-03 07:03:00 149 mm[Hg] [facility] Diastolic blood 2021-04-03 07:03:00 97 mm[Hg] [facility]ive [facility]ity of [facility] Heart rate 2021-04-03 07:03:00 82 /min [facility] Body temperature 2021-04-03 07:03:00 37.11 Kristy [facility] Respiratory rate 2021-04-03 07:03:00 18 /min [facility] Body height 2021-04-03 07:03:00 162.6 cm [facility] Body weight 2021-04-03 07:03:00 90.719 kg [facility] BMI 2021-04-03 07:03:00 34.33 kg/m2 [facility] Oxygen saturation in 2021-04-03 07:03:00 98 /min [facility] Arterial blood by [facility] Pulse oximetry Branch Systolic blood 2020-09-11 04:00:00 135 mm[Hg] [facility] Diastolic blood 2020-09-11 04:00:00 70 mm[Hg] [facility] Heart rate 2020-09-11 04:00:00 61 /min [facility] Respiratory rate 2020-09-11 04:00:00 12 /min [facility] Oxygen saturation in 2020-09-11 04:00:00 99 /min [facility] Arterial blood by [facility] liz Pulse oximetry Branch Body temperature 2020-09-11 00:50:00 37.06 Kristy [facility] Body height 2020-09-11 00:50:00 165.1 cm [facility] Body weight 2020-09-11 00:50:00 86.183 kg [facility] BMI 2020-09-11 00:50:00 31.62 kg/m2 [facility] Heart rate 2020-05-05 22:41:00 92 /min [facility] Systolic blood 2020-05-05 21:09:00 109 mm[Hg] [facility] Diastolic blood 2020-05-05 21:09:00 77 mm[Hg] [facility]ive [facility] Body temperature 2020-05-05 21:09:00 37.89 Kristy [facility] Respiratory rate 2020-05-05 21:09:00 18 /min [facility] Body weight 2020-05-05 21:09:00 86.183 kg [facility] BMI 2020-05-05 21:09:00 32.61 kg/m2 [facility] Oxygen saturation in 2020-05-05 21:09:00 100 /min [facility] Arterial blood by [facility] liz Pulse oximetry Branch Heart rate 2020-05-05 22:41:00 92 /min [facility] Systolic blood 2020-05-05 21:09:00 109 mm[Hg] [facility] Diastolic blood 2020-05-05 21:09:00 77 mm[Hg] Unive [facility]ity of [facility] Body temperature 2020-05-05 21:09:00 37.89 Kristy [facility] Respiratory rate 2020-05-05 21:09:00 18 /min [facility] Body weight 2020-05-05 21:09:00 86.183 kg [facility] BMI 2020-05-05 21:09:00 32.61 kg/m2 [facility] Oxygen saturation in 2020-05-05 21:09:00 100 /min [facility] Arterial blood by [facility] Pulse oximetry Branch Systolic blood 2019-10-04 23:45:19 136 mm[Hg] Univer [facility]ity of [facility] Diastolic blood 2019-10-04 23:45:19 87 mm[Hg] Unive [facility]ity of [facility] Heart rate 2019-10-04 23:45:19 69 /min [facility] Respiratory rate 2019-10-04 23:45:19 16 /min [facility] Oxygen saturation in 2019-10-04 23:45:19 100 /min [facility] Arterial blood by [facility] Pulse oximetry Branch Body temperature 2019-10-04 21:25:00 36.61 Kristy [facility] Body height 2019-10-04 21:25:00 162.6 cm [facility] Body weight 2019-10-04 21:25:00 88.905 kg [facility] BMI 2019-10-04 21:25:00 33.64 kg/m2 [facility] Systolic blood 2019-10-04 23:45:19 136 mm[Hg] Univer [facility]ity [facility] Diastolic blood 2019-10-04 23:45:19 87 mm[Hg] Unive [facility]ity of [facility] Heart rate 2019-10-04 23:45:19 69 /min [facility] Respiratory rate 2019-10-04 23:45:19 16 /min [facility] Oxygen saturation in 2019-10-04 23:45:19 100 /min [facility] Arterial blood by [facility] Pulse oximetry Branch Body temperature 2019-10-04 21:25:00 36.61 Rkisty [facility] Body height 2019-10-04 21:25:00 162.6 cm [facility] Body weight 2019-10-04 21:25:00 88.905 kg [facility] BMI 2019-10-04 21:25:00 33.64 kg/m2 [facility] BP Systolic 2022-02-02 16:41:00 BP Diastolic [...] Systolic (mm Hg) 2018-04-11 01:42:00 Yamil rial [place] Diastolic (mm Hg) 2018-04-11 01:42:00 Mem orial [place] Heart Rate 2018-04-11 01:42:00 [facility] [place] Respitory Rate 2018-04-11 01:42:00 Memori al [place] Weight 2018-04-10 23:32:00 [facility] [place] Systolic (mm Hg) 2018-04-10 23:32:00 Yamil rial [place] Diastolic (mm Hg) 2018-04-10 23:32:00 Mem orial [place] Respitory Rate 2018-04-10 23:32:00 Memori al [place] Heart Rate 2018-04-10 23:32:00 [facility] [place] Temperature Oral (F) 2018-04-10 23:32:00 98.4 F [facility] [place] Systolic (mm Hg) 2018-03-29 23:00:00 Yamli rial [place] Diastolic (mm Hg) 2018-03-29 23:00:00 Mem orial [place] Respitory Rate 2018-03-29 23:00:00 Memori al [place] Heart Rate 2018-03-29 23:00:00 [facility] [place] Weight 2018-03-29 20:56:00 [facility] [place] BMI Calculated 2018-03-29 20:56:00 Memori al [place] Height 2018-03-29 20:56:00 162.56 cm [facility] [place] Systolic (mm Hg) 2018-03-29 20:56:00 Yamil rial [place] Diastolic (mm Hg) 2018-03-29 20:56:00 Mem orial [place] Heart Rate 2018-03-29 20:56:00 [facility] [place] Respitory Rate 2018-03-29 20:56:00 Memori al [place] Temperature Oral (F) 2018-03-29 20:56:00 98.9 F [facility] [place] Height Measured 2018-03-29 11:00:00 65.00 inches Body Temperature 2018-03-29 11:00:00 98.30 degrees Heart Rate 2018-03-29 11:00:00 82.00 /min Respiratory Rate 2018-03-29 11:00:00 16.00 /min BP Systolic 2018-03-29 11:00:00 118 mm[Hg] BP Diastolic 2018-03-29 11:00:00 77 mm[Hg] Weight Measured 2018-03-29 11:00:00 171.80 pounds BP Systolic 2018-02-04 08:36:00 113 mm[Hg] BP [...] 16.00 /min Heart Rate 2017-11-17 06:13:00 [facility] Systolic (mm Hg) 2017-11-17 06:13:00 [facility] Diastolic (mm Hg) 2017-11-17 06:13:00 [facility] Temperature Oral (F) 2017-11-17 06:13:00 98 F [facility] Respitory Rate 2017-11-17 06:13:00 [facility] Heart Rate 2017-11-17 05:22:00 [facility] Respitory Rate 2017-11-17 05:22:00 [facility] Systolic (mm Hg) 2017-11-17 05:22:00 [facility] Diastolic (mm Hg) 2017-11-17 05:22:00 [facility] Weight 2017-11-17 02:49:00 [facility] Heart Rate 2017-11-17 02:49:00 [facility] Respitory Rate 2017-11-17 02:49:00 [facility] Temperature Oral (F) 2017-11-17 02:49:00 98 F [facility] Systolic (mm Hg) 2017-11-17 02:49:00 [facility] Diastolic (mm Hg) 2017-11-17 02:49:00 [facility] Temperature Oral (F) 2017-10-31 23:23:00 98.4 F [facility] Systolic (mm Hg) 2017-10-31 23:23:00 [facility] Diastolic (mm Hg) 2017-10-31 23:23:00 [facility] Respitory Rate 2017-10-31 23:23:00 [facility] Temperature Oral (F) 2017-10-31 21:50:00 98.8 F [facility] Systolic (mm Hg) 2017-10-31 21:50:00 [facility] Diastolic (mm Hg) 2017-10-31 21:50:00 [facility] Respitory Rate 2017-10-31 21:50:00 [facility] Systolic (mm Hg) 2017-10-31 21:20:00 [facility] Diastolic (mm Hg) 2017-10-31 21:20:00 [facility] Respitory Rate 2017-10-31 21:20:00 [facility] BMI Calculated 2017-10-31 20:04:00 [facility] Weight 2017-10-31 20:04:00 [facility] Height 2017-10-31 20:04:00 162.56 cm [facility] Temperature Oral (F) 2017-10-31 20:04:00 99.6 F [facility] Heart Rate 2017-10-31 20:04:00 [facility] Systolic (mm Hg) 2017-10-26 07:51:00 [facility] [place] Diastolic (mm Hg) 2017-10-26 07:51:00 [facility] Respitory Rate 2017-10-26 07:51:00 [facility] Heart Rate 2017-10-26 07:51:00 [facility] Temperature Oral (F) 2017-10-26 07:51:00 98.2 F [facility] Weight 2017-10-26 00:18:00 [facility] Respitory Rate 2017-10-26 00:18:00 [facility] Heart Rate 2017-10-26 00:18:00 [facility] Temperature Oral (F) 2017-10-26 00:18:00 98.2 F [facility] Systolic (mm Hg) 2017-10-26 00:18:00 [facility] Diastolic (mm Hg) 2017-10-26 00:18:00 [facility] Heart Rate 2017-10-13 17:16:00 [facility] Respitory Rate 2017-10-13 17:16:00 [facility] Systolic (mm Hg) 2017-10-13 17:16:00 [facility] Diastolic (mm Hg) 2017-10-13 17:16:00 [facility] Temperature Oral (F) 2017-10-13 17:16:00 98.2 F [facility] Temperature Oral (F) 2017-10-13 15:29:00 98.2 F [facility] Heart Rate 2017-10-13 15:29:00 [facility] Systolic (mm Hg) 2017-10-13 15:29:00 [facility] Diastolic (mm Hg) 2017-10-13 15:29:00 [facility] Respitory Rate 2017-10-13 15:29:00 [facility] Weight 2017-10-13 14:33:00 [facility] BMI Calculated 2017-10-13 14:33:00 [facility] Height 2017-10-13 14:33:00 162.56 cm [facility] Systolic (mm Hg) 2017-10-13 14:33:00 [facility] Diastolic (mm Hg) 2017-10-13 14:33:00 [facility] Heart Rate 2017-10-13 14:33:00 [facility] Respitory Rate 2017-10-13 14:33:00 [facility] Temperature Oral (F) 2017-10-13 14:33:00 98.4 F [facility] Heart Rate 2016-05-02 18:54:00 [facility] Systolic (mm Hg) 2016-05-02 18:54:00 [facility] Diastolic (mm Hg) 2016-05-02 18:54:00 [facility] Respitory Rate 2016-05-02 18:54:00 [facility] Temperature Oral (F) 2016-05-02 18:54:00 98.2 F [facility] Systolic (mm Hg) 2016-05-02 13:02:00 [facility] [place] Diastolic (mm Hg) 2016-05-02 13:02:00 [facility] Heart Rate 2016-05-02 13:02:00 [facility] Respitory Rate 2016-05-02 13:02:00 [facility] Temperature Oral (F) 2016-05-02 13:02:00 98.9 F [facility] Systolic (mm Hg) 2016-05-02 11:09:00 [facility] [place] Diastolic (mm Hg) 2016-05-02 11:09:00 [facility] Heart Rate 2016-05-02 11:09:00 [facility] Respitory Rate 2016-05-02 11:09:00 [facility] Temperature Oral (F) 2016-05-02 11:09:00 98.2 F [facility] BMI Calculated 2016-05-01 13:16:00 [facility] Weight 2016-05-01 13:16:00 [facility] Height 2016-04-24 16:15:00 162.56 cm [facility] Respitory Rate 2016-03-18 00:41:00 [facility] Systolic (mm Hg) 2016-03-18 00:41:00 [facility] Diastolic (mm Hg) 2016-03-18 00:41:00 [facility] Temperature Oral (F) 2016-03-18 00:41:00 98.7 F [facility] Heart Rate 2016-03-18 00:41:00 [facility] Weight 2016-03-17 22:25:00 [facility] BMI Calculated 2016-03-17 22:25:00 [facility] Height 2016-03-17 22:25:00 162.56 cm [facility] Temperature Oral (F) 2016-03-17 22:25:00 102.4 F [facility] Systolic (mm Hg) 2016-03-17 22:25:00 [facility] [place] Diastolic (mm Hg) 2016-03-17 22:25:00 [facility] Heart Rate 2016-03-17 22:25:00 [facility] Respitory Rate 2016-03-17 22:25:00 [facility] Temperature Oral (F) 2015-08-03 15:47:00 98.1 F [facility] Respitory Rate 2015-08-03 15:47:00 [facility] Systolic (mm Hg) 2015-08-03 15:47:00 [facility] [place] Diastolic (mm Hg) 2015-08-03 15:47:00 [facility] Heart Rate 2015-08-03 15:47:00 [facility] Systolic (mm Hg) 2015-08-03 14:34:00 [facility] Diastolic (mm Hg) 2015-08-03 14:34:00 [facility] Height 2015-08-03 14:34:00 165.1 cm [facility] Heart Rate 2015-08-03 14:34:00 [facility] Respitory Rate 2015-08-03 14:34:00 [facility] BMI Calculated 2015-08-03 14:34:00 [facility] Weight 2015-08-03 14:34:00 [facility] Temperature Oral (F) 2015-08-03 14:34:00 98.1 F [facility] Respitory Rate 2015-04-08 21:27:00 [facility] Systolic (mm Hg) 2015-04-08 21:27:00 [facility] Diastolic (mm Hg) 2015-04-08 21:27:00 [facility] Heart Rate 2015-04-08 21:27:00 [facility] Weight 2015-04-08 19:07:00 [facility] Respitory Rate 2015-04-08 17:49:00 [facility] Heart Rate 2015-04-08 17:49:00 [facility] Systolic (mm Hg) 2015-04-08 17:49:00 [facility] Diastolic (mm Hg) 2015-04-08 17:49:00 [facility] Heart Rate 2015-04-08 13:34:00 [facility] Respitory Rate 2015-04-08 13:34:00 [facility] Systolic (mm Hg) 2015-04-08 13:34:00 [facility] [place] Diastolic (mm Hg) 2015-04-08 13:34:00 [facility] Temperature Oral (F) 2015-04-08 10:00:00 97.5 F [facility] Temperature Oral (F) 2015-04-08 06:00:00 97.9 F [facility] Temperature Oral (F) 2015-04-08 02:00:00 98.6 F [facility] BMI Calculated 2015-04-07 23:28:00 [facility] Weight 2015-04-07 23:28:00 [facility] Height 2015-04-07 23:28:00 165.1 cm [facility] Weight 2015-04-07 13:01:00 [facility] BMI Calculated 2015-04-07 13:01:00 [facility] Height 2015-04-07 13:01:00 165.1 cm [facility] Respitory Rate 2014-11-07 17:53:00 [facility] Systolic (mm Hg) 2014-11-07 17:53:00 [facility] [place] Diastolic (mm Hg) 2014-11-07 17:53:00 [facility] Heart Rate 2014-11-07 17:53:00 [facility] Temperature Oral (F) 2014-11-07 17:53:00 98.6 F [facility] Systolic (mm Hg) 2014-11-07 12:53:00 [facility] Diastolic (mm Hg) 2014-11-07 12:53:00 [facility] Heart Rate 2014-11-07 12:53:00 [facility] Respitory Rate 2014-11-07 12:53:00 [facility] Temperature Oral (F) 2014-11-07 12:53:00 98.9 F [facility] Systolic (mm Hg) 2014-11-07 09:00:00 [facility] Diastolic (mm Hg) 2014-11-07 09:00:00 [facility] Temperature Oral (F) 2014-11-07 09:00:00 98.1 F [facility] Heart Rate 2014-11-07 09:00:00 [facility] Respitory Rate 2014-11-07 09:00:00 [facility] BMI Calculated 2014-11-05 19:27:00 [facility] Weight 2014-11-05 19:27:00 [facility] Height 2014-11-05 19:27:00 165.1 cm [facility] Temperature Oral (F) 2014-11-03 18:30:00 98.0 F [facility] Systolic (mm Hg) 2014-11-03 18:30:00 [facility] Diastolic (mm Hg) 2014-11-03 18:30:00 [facility] Respitory Rate 2014-11-03 18:30:00 [facility] Temperature Oral (F) 2014-11-03 17:20:00 98.2 F [facility] Respitory Rate 2014-11-03 17:20:00 [facility] Systolic (mm Hg) 2014-11-03 17:20:00 [facility] [place] Diastolic (mm Hg) 2014-11-03 17:20:00 [facility] Systolic (mm Hg) 2014-11-03 15:30:00 [facility] Diastolic (mm Hg) 2014-11-03 15:30:00 [facility] Respitory Rate 2014-11-03 15:30:00 [facility] Heart Rate 2014-11-03 13:34:00 [facility] Weight 2014-11-03 13:34:00 [facility] Temperature Oral (F) 2014-11-03 13:34:00 98.2 F [facility] Diastolic (mm Hg) 2013-03-08 01:37:00 [facility] Heart Rate 2013-03-08 01:37:00 [facility] Temperature Oral (F) 2013-03-08 01:37:00 100.1 F [facility] Systolic (mm Hg) 2013-03-08 01:37:00 [facility] Respitory Rate 2013-03-08 01:37:00 [facility] Temperature Oral (F) 2013-03-08 00:54:00 102.8 F [facility] Temperature Oral (F) 2013-03-08 00:22:00 103.1 F [facility] Systolic (mm Hg) 2013-03-07 23:25:00 [facility] Respitory Rate 2013-03-07 23:25:00 [facility] Diastolic (mm Hg) 2013-03-07 23:25:00 [facility] Heart Rate 2013-03-07 23:25:00 [facility] Systolic (mm Hg) 2013-03-07 20:11:00 [facility] [place] Diastolic (mm Hg) 2013-03-07 20:11:00 [facility] Respitory Rate 2013-03-07 20:11:00 [facility] Heart Rate 2013-03-07 20:11:00 [facility] Diastolic (mm Hg) 2013-03-07 18:24:00 [facility] Respitory Rate 2013-03-07 18:24:00 [facility] Systolic (mm Hg) 2013-03-07 18:24:00 [facility] Heart Rate 2013-03-07 18:24:00 [facility] Temperature Oral (F) 2013-03-07 18:24:00 99.1 F [facility] Systolic (mm Hg) 2013-03-07 17:30:00 [facility] [place] Diastolic (mm Hg) 2013-03-07 17:30:00 [facility] Heart Rate 2013-03-07 17:30:00 [facility] Respitory Rate 2013-03-07 17:30:00 [facility] Systolic (mm Hg) 2013-03-07 15:59:00 [facility] [place] Diastolic (mm Hg) 2013-03-07 15:59:00 [facility] Heart Rate 2013-03-07 15:59:00 [facility] Respitory Rate 2013-03-07 15:59:00 Claribel Mack Temperature Oral (F) 2013-03-07 15:16:00 101.2 F [facility] Height 2012-04-04 03:37:00 162.56 cm [facility] Weight 2012-04-04 03:37:00 [facility] Procedures Procedure Date / Time Performing Clinician Source Performed COMP. METABOLIC PANEL 2021-10-18 17:29:00 Cristal Young [facility] ([id number]) [facility] CBC WITH DIFF 2021-10-18 17:29:00 Cristal Young [facility] CT ABDOMEN PELVIS WO 2021-10-18 17:18:40 Cristal Young [facility] URINALYSIS 2021-10-18 16:11:00 Cristal Young [facility] CONSENT/REFUSAL FOR 2021-10-18 15:31:32 [facility] CT ABDOMEN PELVIS W 2021-09-24 17:21:53 Alejandrina Pena [facility] CONTRAST [facility] LIPASE 2021-09-24 16:53:00 Jean Alejandrina [facility] COMP. METABOLIC PANEL 2021-09-24 16:53:00 Alejandrina Pena [facility] ([id number]) [facility] CBC WITH DIFF 2021-09-24 16:53:00 Alejandrina Pena [facility] PROTHROMBIN TIME / INR 2021-09-24 16:53:00 Alejandrina Pena [facility] ACTIVATED PARTIAL 2021-09-24 16:53:00 Jean Alejandrina [facility] THRMPLAS MELISSA [facility] URINALYSIS 2021-09-24 16:53:00 Jean [facility] CONSENT/REFUSAL FOR 2021-09-24 16:13:53 Doctor [facility]igned, [facility] Name Medical [place] POCT TEST 2021-04-10 20:49:00 Ranjit Church [facility] CREATINE KINASE 2021-04-10 20:44:00 Ranjit [facility] COMP. METABOLIC PANEL 2021-04-10 20:44:00 Ranjit Church [facility] ([id number]) Medical Branch CBC WITH DIFF 2021-04-10 20:44:00 Ranjit [facility] URINALYSIS 2021-04-10 20:44:00 Ranjit [facility] XR CHEST 1 VW 2021-04-10 19:38:38 Ranjit [facility] CONSENT/REFUSAL FOR 2021-04-10 18:33:05 Doctor Unassigned, [facility] XR ABDOMEN ACUTE SERIES 2021-04-03 07:31:57 [facility] URINALYSIS 2021-04-03 07:10:00 Diana Bradford [facility] COVID-19 (ID NOW RAPID 2021-04-03 07:10:00 Diana Bradford [facility] TESTING) Medical Branch NOTICE OF PRIVACY 2021-04-03 06:51:09 Doctor Unassigned, No [facility] PRACTICES [facility] CONSENT/REFUSAL FOR 2021-04-03 06:49:41 Doctor [facility]assigned, [facility] EKG-12 LEAD 2020-09-11 03:54:05 Ingrid Paez [facility] XR CHEST 1 VW 2020-09-11 01:03:05 Ingrid Paez [facility] CBC WITH DIFF 2020-09-11 00:55:00 Ingrid Paez [facility] PROTHROMBIN TIME / INR 2020-09-11 00:55:00 Ingrid Paez [facility] ACTIVATED PARTIAL 2020-09-11 00:55:[address] [facility] THRMPLAS MELISSA Medical Branch LIPASE 2020-09-11 00:55:00 Ingrid Paez [facility] TROPONIN I 2020-09-11 00:55:00 Ingrid Paez [facility] COMP. METABOLIC PANEL 2020-09-11 00:55:00 Ingrid Paez [facility] ([id number]) [facility] CONSENT/REFUSAL FOR 2020-09-11 00:37:21 Doctor Unassigned, No [facility] [place] [facility] AND TREATMENT Name [facility] URINALYSIS 2020-05-05 21:33:00 Marisol Ocampo [facility] o [facility] NOTICE OF PRIVACY 2020-05-05 21:03:49 Doctor Unassigned, No [facility] [place] [facility] Name [facility] CONSENT/REFUSAL FOR 2020-05-05 21:02:41 Doctor Unassigned, No [facility] DIAGNOSIS AND TREATMENT Name [facility] XR FOOT 3+ VW LEFT 2019-10-04 22:26:37 Ranjit Church [facility] NOTICE OF PRIVACY 2019-10-04 21:14:42 [facility]igned, [facility] Laparoscopic 2016-05-01 06:00:00 [facility] hysterectomy [facility] section<sup>1</sup> Plan of Care Planned Activity Planned Date Details Comments Source Goal Plan of Care Note [code = 74859-9] Goal Plan of Care Note [code = 61186-0] Goal Plan of Care Note [code = 52478-7] Goal Plan of Care Note [code = 59605-7] Goal Plan of Care Note [code = 99465-2] Goal Plan of Care Note [code = 94392-7] Goal Plan of Care Note [code = 32942-2] Goal Plan of Care Note [code = 61847-2] Goal Plan of Care Note [code = 03300-4] Goal Plan of Care Note [code = 89736-7] Goal Plan of Care Note [code = 70451-5] Goal Plan of Care Note [code = 32360-0] Goal Plan of Care Note [code = 62768-8] Goal Plan of Care Note [code = 68553-2] Goal Plan of Care Note [code = 41257-0] Goal Plan of Care Note [code = 28896-9] Goal Plan of Care Note [code = 69109-5] Goal Plan of Care Note [code = 13739-2] Goal Plan of Care Note [code = 88529-5] Goal Plan of Care Note [code = 95873-2] Goal Plan of Care Note [code = 20961-3] Goal Plan of Care Note [code = 43837-1] Goal Plan of Care Note [code = 02480-6] Goal Plan of Care Note [code = 62131-6] Goal Plan of Care Note [code = 90159-4] Goal Plan of Care Note [code = 58441-6] Goal Plan of Care Note [code = 25136-7] Goal Plan of Care Note [code = 75434-7] Goal Plan of Care Note [code = 91575-6] Goal Plan of Care Note [code = 48260-3] Goal Plan of Care Note [code = 38397-5] Goal Plan of Care Note [code = 42536-1] Goal Plan of Care Note [code = 17891-2] Goal Plan of Care Note [code = 99191-8] Goal Plan of Care Note [code = 14167-8] Goal Plan of Care Note [code = 45464-4] Goal Plan of Care Note [code = 34982-3] Goal Plan of Care Note [code = 82982-5] Goal Plan of Care Note [code = 38579-8] Goal Plan of Care Note [code = 78651-9] Goal Plan of Care Note [code = 14474-6] Goal Plan of Care Note [code = 91794-5] Goal Plan of Care Note [code = 36044-9] Goal Plan of Care Note [code = 14801-5] Goal Plan of Care Note [code = 57687-9] Goal Plan of Care Note [code = 60134-6] Goal Plan of Care Note [code = 68016-2] Goal Plan of Care Note [code = 70505-8] Goal Plan of Care Note [code = 51087-5] Goal Plan of Care Note [code = 10422-4] Goal Plan of Care Note [code = 45495-9] Goal Plan of Care Note [code = 76056-2] Goal Plan of Care Note [code = 99066-9] Goal Plan of Care Note [code = 86006-1] Goal Plan of Care Note [code = 97738-7] Goal Plan of Care Note [code = 44733-1] Goal Plan of Care Note [code = 12301-1] Goal Plan of Care Note [code = 91710-0] Goal Plan of Care Note [code = 37083-7] Goal Plan of Care Note [code = 76933-9] Goal Plan of Care Note [code = 81639-2] Goal Plan of Care Note [code = 55760-1] Goal Plan of Care Note [code = 49528-9] Goal Plan of Care Note [code = 71759-2] Goal Plan of Care Note [code = 77817-7] Goal Plan of Care Note [code = 83555-0] Goal Plan of Care Note [code = 35428-3] Goal Plan of Care Note [code = 85020-2] Goal Plan of Care Note [code = 06056-4] Goal Plan of Care Note [code = 45636-4] Goal Plan of Care Note [code = 80974-5] Goal Plan of Care Note [code = 01286-6] Goal Plan of Care Note [code = 49375-5] Goal Plan of Care Note [code = 90906-0] Goal Plan of Care Note [code = 27227-5] Goal Plan of Care Note [code = 65468-5] Goal Plan of Care Note [code = 12977-7] Goal Plan of Care Note [code = 41135-5] Goal Plan of Care Note [code = 50188-3] Goal Plan of Care Note [code = 53156-6] Goal Plan of Care Note [code = 44873-4] Goal Plan of Care Note [code = 72282-8] Goal Plan of Care Note [code = 02271-6] Goal Plan of Care Note [code = 75832-8] Goal Plan of Care Note [code = 46787-6] Goal Plan of Care Note [code = 13125-7] Goal Plan of Care Note [code = 75859-9] Goal Plan of Care Note [code = 74191-6] Goal Plan of Care Note [code = 13333-2] Goal Plan of Care Note [code = 37294-5] Goal Plan of Care Note [code = 50706-9] Goal Plan of Care Note [code = 05665-7] Goal Plan of Care Note [code = 64589-5] Goal Plan of Care Note [code = 05741-8] Goal Plan of Care Note [code = 12965-6] Goal Plan of Care Note [code = 64904-1] Goal Plan of Care Note [code = 84747-6] Goal Plan of Care Note [code = 79941-7] Goal Plan of Care Note [code = 02466-1] Goal Plan of Care Note [code = 88886-1] Goal Plan of Care Note [code = 07380-4] Goal Plan of Care Note [code = 74648-8] Goal Plan of Care Note [code = 75101-8] Goal Plan of Care Note [code = 05059-6] Goal Plan of Care Note [code = 46877-9] Goal Plan of Care Note [code = 31388-4] Goal Plan of Care Note [code = 27679-7] Goal Plan of Care Note [code = 72232-6] Goal Plan of Care Note [code = 74573-7] Goal Plan of Care Note [code = 02523-9] Goal Plan of Care Note [code = 11366-3] Goal Plan of Care Note [code = 88581-1] Goal Plan of Care Note [code = 45154-1] Goal Plan of Care Note [code = 79462-8] Goal Plan of Care Note [code = 41506-4] Goal Plan of Care Note [code = 23811-2] Goal Plan of Care Note [code = 54389-9] Goal Plan of Care Note [code = 60311-9] Goal Plan of Care Note [code = 52818-9] Goal Plan of Care Note [code = 17649-3] Goal Plan of Care Note [code = 35258-8] Goal Plan of Care Note [code = 35270-2] Goal Plan of Care Note [code = 70860-4] Goal Plan of Care Note [code = 95097-1] Goal Plan of Care Note [code = 36718-7] Goal Plan of Care Note [code = 10942-6] Goal Plan of Care Note [code = 88212-8] Goal Plan of Care Note [code = 29772-9] Goal Plan of Care Note [code = 37453-3] Goal Plan of Care Note [code = 71635-4] Goal Plan of Care Note [code = 05304-8] Goal Plan of Care Note [code = 13460-6] Goal Plan of Care Note [code = 83631-5] Goal Plan of Care Note [code = 87913-3] Goal Plan of Care Note [code = 31214-6] Goal Plan of Care Note [code = 48372-5] Goal Plan of Care Note [code = 17659-9] Goal Plan of Care Note [code = 70560-5] Goal Plan of Care Note [code = 81978-2] Goal Plan of Care Note [code = 56579-1] Goal Plan of Care Note [code = 52036-5] Goal Plan of Care Note [code = 32269-7] Goal Plan of Care Note [code = 37532-1] Goal Plan of Care Note [code = 45034-7] Goal Plan of Care Note [code = 45030-9] Goal Plan of Care Note [code = 99082-9] Goal Plan of Care Note [code = 95140-7] Goal Plan of Care Note [code = 00029-2] Goal Plan of Care Note [code = 85475-0] Goal Plan of Care Note [code = 86469-8] Goal Plan of Care Note [code = 06509-6] Goal Plan of Care Note [code = 24407-4] Goal Plan of Care Note [code = 74543-2] Goal Plan of Care Note [code = 80075-0] Goal Plan of Care Note [code = 68308-0] Goal Plan of Care Note [code = 44000-9] Goal Plan of Care Note [code = 51591-7] Goal Plan of Care Note [code = 54074-0] Goal Plan of Care Note [code = 07135-6] Goal Plan of Care Note [code = 38788-8] Goal Plan of Care Note [code = 42126-9] Goal Plan of Care Note [code = 75446-2] Goal Plan of Care Note [code = 84605-3] Goal Plan of Care Note [code = 45287-0] Goal Plan of Care Note [code = 74208-0] Goal Plan of Care Note [code = 39463-1] Goal Plan of Care Note [code = 58919-7] Goal Plan of Care Note [code = 64701-7] Goal Plan of Care Note [code = 72765-8] Goal Plan of Care Note [code = 48523-3] Goal Plan of Care Note [code = 99881-8] Goal Plan of Care Note [code = 17737-3] Goal Plan of Care Note [code = 61267-8] Goal Plan of Care Note [code = 94425-1] Goal Plan of Care Note [code = 79740-9] Goal Plan of Care Note [code = 30488-5] Goal Plan of Care Note [code = 62979-3] Goal Plan of Care Note [code = 66041-3] Goal Plan of Care Note [code = 64029-2] Goal Plan of Care Note [code = 76667-7] Goal Plan of Care Note [code = 76923-4] Goal Plan of Care Note [code = 44484-8] Goal Plan of Care Note [code = 35754-9] Goal Plan of Care Note [code = 18836-2] Goal Plan of Care Note [code = 84163-9] Goal Plan of Care Note [code = 19141-0] Goal Plan of Care Note [code = 43041-1] Goal Plan of Care Note [code = 60863-1] Goal Plan of Care Note [code = 71342-6] Goal Plan of Care Note [code = 79258-8] Goal Plan of Care Note [code = 88748-5] Goal Plan of Care Note [code = 66825-0] Goal Plan of Care Note [code = 40168-9] Goal Plan of Care Note [code = 29620-4] Goal Plan of Care Note [code = 02113-6] Goal Plan of Care Note [code = 19559-3] Goal Plan of Care Note [code = 75103-9] Goal Plan of Care Note [code = 06915-8] Goal Plan of Care Note [code = 79081-1] Goal Plan of Care Note [code = 27177-2] Goal Plan of Care Note [code = 57069-6] Goal Plan of Care Note [code = 38216-6] Goal Plan of Care Note [code = 35906-7] Goal Plan of Care Note [code = 73818-5] Goal Plan of Care Note [code = 78810-8] Goal Plan of Care Note [code = 56460-8] Goal Plan of Care Note [code = 08245-4] Goal Plan of Care Note [code = 67590-1] Encounters Start End Encounter Admission Attending Care Care Encounter Source Date/Time Date/Time Type Type Clinicians Facility Department ID 2022-02-08 2022-02-08 Outpatient [facility] [id number] James Emiliano 10:15:08 10:15:08 1116 F Luis Alberto 2022-02-03 2022-02-03 Outpatient [facility] [id number] Emiliano 13:28:04 13:28:04 1111 F Luis Alberto 2022-02-02 2022-02-02 Outpatient [facility] [id number] Emiliano 16:28:55 16:28:55 1110 F Luis Alberto 2022-02-02 2022-02-02 Outpatient [id number]- [id number] qf2c8c-3 00:00:00 00:00:00 Visit 64a4-4x07 3x2-4q91-7 -8712-4fd 712-4fdd90 w1062q44l 85f97b 2021-10-20 2021-10-20 Outpatient 34gw9ar4- [id number] ss8ri2-4 00:00:00 00:00:00 Visit 1687-4b02 687-4b02-8 -86fe-74e 6fe-74ef79 a32y708u4 c652b1 2021-10-18 2021-10-18 Emergency [facility] [id number] Univers 10:32:00 14:15:00 CRISTAL gallego [facility] 2021-10-18 2021-10-18 Emergency [facility] 1.2.840.114 [id number] Univers 10:32:00 14:15:00 [facility] 4.2.7[facility]2.686 [facility] [id number] [address] 2021-10-07 2021-10-07 Outpatient [id number]- [id number] b1 t9k8t5-y 00:00:00 00:00:00 Visit fbd6-47c9 bd6-47c9-8 -8149-d53 149-d53be4 dc21988x7 7622c3 2021-09-29 2021-09-29 Outpatient 566ls823- [id number] 2zt037-g 00:00:00 00:00:00 Visit bab9-4b5f ab9-4b5f-9 -02v9-853 4p7-195947 623vf2d68 ae9f73 2021-09-24 2021-09-24 Emergency [facility] [id number] Univers 11:21:00 13:51:00 ALEJANDRINA gallego [facility] 2021-09-24 2021-09-24 Emergency [facility] 1.2.851.735 [id number] Univers 11:21:00 13:51:00 Alejandrina CARROLL 350.1.13.10 i ty [place] 4.2.7.2.686 [facility] [id number] [address] 2021-09-21 2021-09-21 Outpatient [id number]- [id number] 7d 6o22w2-0 00:00:00 00:00:00 Visit 3220-0765 462-4366-a -d828-567 185-27714g 74i87fagr 36fdaa 2021-04-10 2021-04-10 Emergency [facility] [id number] Univers 12:42:00 16:01:00 RANJIT lesly [facility] 2021-04-10 2021-04-10 Emergency [facility] 1.2.840.114 [id number] Univers 12:42:00 16:01:00 Ranjit CARROLL 350.1.13.10 i ty [place] 4.2.7.2.686 [facility] [id number] [address] 2021-04-03 2021-04-03 Emergency [facility] [id number] Univers 01:07:00 01:54:00 DIANA julián [facility] 2021-04-03 2021-04-03 Emergency [facility] 1.2.950.428 [id number] Univers 01:07:00 01:54:00 Diana CARROLL 350.1.13.10 ity [place] 4.2.7.2.686 [facility] [id number] [address] 2020-09-10 2020-09-10 Emergency Philippe, [facility] 1.2.838.980 [id number] Univers 19:42:00 23:08:00 Ingrid Carpenter [place] 350.1.13.10 ity of [place] 4.2.7.2.686 [facility] [id number] [address] 2020-09-10 2020-09-10 Emergency X PHILIPPE, [facility] ERT [id number] Univers 19:42:00 19:42:00 MARTINEZKILI ity [facility] 2020-05-05 2020-05-05 Emergency Ocampo, [facility] 1.2.637.849 [id number] 15:10:00 16:55:00 Marisol R [place] 350.1.13.10 [place] 4.2.7.2.686 [place] [id number] [facility] 2020-05-05 2020-05-05 Emergency [facility] 1.2.313.335 [id number] Univers 15:10:00 16:55:00 Marisol R [place] 350.1.13.10 i ty of [place] 4.2.7.[address] [place] [id number] 2020-05-05 2020-05-05 Emergency [facility] [id number] Univers 15:03:00 15:03:00 MARISOL ity [facility] 2019-10-04 2019-10-04 Emergency [facility] 1.2.840.114 [id number] 16:26:50 19:58:00 Shinta [place] 350.1.13.10 [place] [address] [place] [address] [id number] [facility] 2019-10-04 2019-10-04 Emergency [facility], [facility] 1.2.840.114 [id number] Univers 16:26:50 19:58:00 Shinta [place] 350.1.13.10 i ty of [place] 4.2.7.2.[address] [place] [id number] 2019-10-04 2019-10-04 Emergency [facility] [id number] Univers 16:26:50 16:26:50 SHINTA ity [facility] 2018-04-10 2018-04-11 [facility] [id number] Memoria 23:22:00 01:59:00 r Arthur 15 [facility] 2018-04-10 2018-04-11 [facility] [id number] Memoria 23:22:00 01:59:00 r [place] 15 [facility] 2018-04-10 2018-04-10 Outpatient duglas [facility] [id number] 17:22:00 19:59:00 Jeremiah Adkins 15 2018-03-29 2018-03-29 [facility] [id number] Memoria 20:53:00 23:30:00 claudia [place] [address] [place] [address] 2018-03-29 2018-03-29 [facility] [id number] Memoria 20:53:00 23:30:00 claudia Arthur [address] [place] [address] 2018-03-29 2018-03-29 Outpatient Taj [facility] [id number] 14:53:00 17:30:00 Arlin Wang 14 2017-11-17 2017-11-17 [facility] [id number] Memoria 02:34:00 06:15:[address] [facility] 2017-11-17 2017-11-17 [facility] [id number] Memoria 02:34:00 06:15:[address] [place] [address] [facility] 2017-11-16 2017-11-17 Outpatient Amalia MINISTERIO [facility] [id number] 21:34:00 01:15:00 Ambica 13 2017-11-16 2017-11-16 Emergency E MHBL MHBL 7513 MHBL 21:34:00 21:34:00 2017-10-31 2017-10-31 [facility] [id number] Memoria 19:57:00 23:33:00 claudia [place] [address] [place] [address] 2017-10-31 2017-10-31 Emergency [facility] [id number] Memoria 19:57:00 23:33:00 claudia [place] [address] [place] [address] 2017-10-31 2017-10-31 Outpatient Aznaurova-A [facility] [id number] 14:57:00 18:33:00 Rusty varner 2017-10-26 2017-10-26 [facility] [id number] Memoria 00:14:00 07:52:00 claudia Gibson Michael [facility] 2017-10-26 2017-10-26 [facility] [id number] Memoria 00:14:00 07:52:00 claudia Gibson Michael [facility] 2017-10-25 2017-10-26 Outpatient Amelia [facility] [id number] 19:14:00 02:52:00 Juve Michael Sealsall 2017-10-13 2017-10-13 [facility] [id number] Memoria 14:30:00 17:24:[address] [facility] 2017-10-13 2017-10-13 [facility] [id number] Memoria 14:30:00 17:24:[address] [facility] 2017-10-13 2017-10-13 Outpatient Christy, MHPL PL [id number] 09:30:00 12:24:00 Young 10 [facility] 2017-10-13 2017-10-13 Outpatient Christy, MHPL PL [id number] 09:30:00 12:24:00 Young Yazmin [facility] 2017-10-05 2017-10-05 Emergency [facility] [id number] [place] 12:20:00 12:20:00 [facility] 2017-07-14 2017-07-14 Emergency [facility] [id number] [place] 08:07:11 08:07:11 [facility] 2017-07-14 2017-07-14 Outpatient [facility] [id number] [place] 05:07:03 05:07:03 [facility] 2016-05-01 2016-05-02 Bedded [facility] [id number] Memoria 11:36:30 21:50:00 Outpatient claudia Gibson 09 l [facility] 2016-05-01 2016-05-02 Bedded [facility] [id number] Memoria 11:36:30 21:50:00 Outpatient claudia Gibson 09 l [facility] 2016-05-01 2016-05-02 Outpatient Darren Mars [facility] [id number] 05:36:30 15:50:00 T 09 2016-03-17 2016-03-18 [facility] [id number] Memoria 21:57:00 01:05:[address] [facility] 2016-03-17 2016-03-18 Emergency [facility] [id number] Memoria 21:57:00 01:05:[address] 2016-03-17 2016-03-17 Outpatient Weathers, [facility] [id number] 15:57:00 19:05:00 Asimkevin Sands 07 2015-08-03 2015-08-03 EC [facility] [id number] Memoria 14:32:00 16:11:00 Emergency r [place] 06 [facility] 2015-08-03 2015-08-03 EC [facility] [id number] Memoria 14:32:00 16:11:[address] 2015-08-03 2015-08-03 Outpatient Arora, [facility] [id number] 09:32:00 11:11:00 Sofiya 06 Evelyn 2015-04-07 2015-04-08 OBS [facility] [id number] Memoria 13:00:00 23:27:00 Observatio r Arthur 05 l n Patient [facility] 2015-04-07 2015-04-08 OBS [facility] [id number] Memoria 13:00:00 23:27:00 Observatio r Arthur 05 l n Patient [facility] 2015-04-07 2015-04-08 Outpatient Rodriguez, [facility] [id number] 07:00:00 17:27:00 [place] 05 2014-11-05 2014-11-07 OBS [facility] [id number] Memoria 19:22:00 21:40:00 Observatio r Arthur 04 l n Patient [facility] 2014-11-05 2014-11-07 OBS [facility] [id number] Memoria 19:22:00 21:40:00 Observatio r Arthur 04 l n Patient [facility] 2014-11-05 2014-11-07 Outpatient Nabor Snow MHSE MHSE [id number] 14:22:00 16:40:00 Jude 04 2014-11-03 2014-11-03 EC nullFlavo [facility] [id number] Memoria 13:30:00 18:40:00 Emergency r Arthur 03 [facility] 2014-11-03 2014-11-03 EC nullFlavo [facility] [id number] Memoria 13:30:00 18:40:00 Emergency r Arthur 03 [facility] 2014-11-03 2014-11-03 [place] [id number] 08:30:00 13:40:00 [facility] 2013-03-07 2013-03-07 Emergency nullFlavo [id number] Memoria 14:11:00 20:05:00 r [facility] 2013-03-07 2013-03-07 Outpatient 2.16.840. 2.16.840.1. 3 [id number] Memoria 14:11:00 20:05:00 [id number]. [id number] l 3.615.0.1 5.0.100 Che[place] n 00 M[facility] with [facility] 2013-03-07 2013-03-07 Emergency nullFlavo [id number] Memoria 14:11:00 20:05:00 [facility] 2013-03-07 2013-03-07 Emergency nullFlavo [id number] Memoria 09:06:00 12:26:00 [facility] 2013-03-07 2013-03-07 Outpatient 2.16.840. 2.16.840.1. 3 [id number] Memoria 09:06:00 12:26:00 [id number]. 567990.3.61 l 3.615.0.1 5.0.100 [place] n 00 Merged with [facility] 2013-03-07 2013-03-07 Emergency nullFlavo [place] [id number] Memoria 09:06:00 12:26:00 r [facility] 2012-04-03 2012-04-04 Emergency nullFlavo [id number] Memoria 21:19:00 03:17:00 r [facility] 2012-04-03 2012-04-04 Emergency nullFlavo [id number] Memoria 21:19:00 03:17:00 [facility] candace Gibson Results Test Description Test Time Test Comments Results Result Comments Source COMP. METABOLIC PANEL (57108) 2021-10-18 18:06:10 Test Item Value Reference Range Interpretation Comme nts NA (test code = 7047567213) 140 mmol/L 135-145 K (test code = 3235480708) 4.6 mmol/L 3.5-5 CL (test code = 4483102682) 101 mmol/L 98-108 CO2 TOTAL (test code = 1202475890) 27 mmol/L 23-31 AGAP (test code = 9308396920) 2-16 BUN (test code = 7095800338) 7 mg/dL 7-23 GLUCOSE (test code = 0693571643) 87 mg/dL 70-110 CREATININE (test code = 0.63 mg/dL 0.5-1.04 1238626064) TOTAL BILI (test code = 0.6 mg/dL 0.1-1.4 8562069725) CALCIUM (test code = 8292256321) 10.7 mg/dL 8.6-10.6 H T PROTEIN (test code = 9437628397) 9.0 g/dL 6.3-8.2 H ALBUMIN (test code = 5849680219) 4.5 g/dL 3.5-5 ALK PHOS (test code = 7889810205) 100 U/L 34-122 ALTv (test code = 1742-6) 31 U/L 5-35 AST(SGOT) (test code = 2867503927) 34 U/L 13-40 eGFR (test code = 5535122247) mL/min/1.73m2 YANIRA (test code = YANIRA) Association [...] tests). Lab Interpretation (test code = Abnormal 95807-2) [facility] WITH [id number] 17:55:25 Test Item Value Reference Range Interpretation Comments WBC (test code = See_Comment [Automated message] 6690-2) The system [employer] generated this result transmitted ref erence range: 4.30 - 1 1.10 10*3/?L. The re ference range was not u sed to interpret this result as normal/abnor mal. RBC (test code = See_Comment [Automated message] 789-8) The system [employer] generated this result transmitted ref erence range: [...] RDW-SD (test code 43.7 fL 39-49.9 = 78371-3) RDW-CV (test code 13.2 % 12-15.5 = 788-0) PLT (test code = See_Comment [Automated message] 777-3) The system whic h generated this result transmitted ref erence range: 166 - 35 8 10*3/?L. The re ference range was not u sed to interpret this result as normal/abnor mal. MPV (test code = 10.2 fL 9.5-12.9 08966-0) NRBC/100 WBC (test See_Comment [Automat ed message] code = 8120427310) The syste m which generated this result transmitted ref erence range: 0.0 - 10 .0 /100 WBCs. The refer ence range was not u sed to interpret this result as normal/abnor mal. NRBC x10^3 (test See_Comment [Automated message] code = 5084776790) The syste m which generated this result transmitted ref erence range: 10*3/?L. The reference range was not used to interpr et this result as normal/abnormal . GRAN MAT (NEUT) % 53.2 % (test code = 770-8) IMM GRAN % (test 0.50 % code = 5362181568) LYMPH % (test code 36.0 % = 736-9) MONO % (test code 7.9 % = 5905-5) EOS % (test code = 1.8 % 713-8) BASO % (test code 0.6 % = 706-2) GRAN MAT 3.49 10*3/uL 1.88-7.09 x10^3(ANC) (test code = 8861956976) IMM GRAN x10^3 0.03 10*3/uL 0-0.06 (test code = 6355071485) LYMPH x10^3 (test 2.36 10*3/uL 1.32-3.29 code = 731-0) MONO x10^3 (test 0.52 10*3/uL 0.33-0.92 code = 742-7) EOS x10^3 (test 0.12 10*3/uL 0.03-0.39 code = 711-2) BASO x10^3 (test 0.04 10*3/uL 0.01-0.07 code = 704-7) [facility], THIRD [id number] 06:23:52 Test Item Value Reference Range Interpretation Comments TSH, THIRD 0.436 UIU/ML 0.400-4.100 UNLESS OTHERWI SE GENERATION (test INDICATED, ALL TESTING code = 2821) PERFORMED [facility], [facility]. [address] [place] [address] [facility] DIRECTOR: NASH WEEKS M.D. CLIA NUMBER [id number] CAP ACCREDITATION N O. [id number] COMPREHENSIVE METABOLIC [id number] 04:31:16 Test Item Value Reference Range Interpretation Comments GLUCOSE (test code = 92 MG/DL 70-99 2216) BUN (test code = 9 MG/DL 6-20 2207) CREATININE (test 0.75 MG/DL 0.60-1.30 code = 2214) eGFR (2020 CKD-EPI) 99 ML/MIN/1.73 >60 (test code = 54679) CALC BUN/CREAT (test 12 RATIO 6-28 code = 2235) SODIUM (test code = 141 MEQ/L 763-924 4925) POTASSIUM (test code 4.2 MEQ/L 3.5-5.4 = [...] U/L 5-40 2218) CBC W/AUTO DIFF WITH [id number] 03:47:00 Test Item Value Reference Range Interpretation [...] RBCS 0.00 K/UL 0.00-0.11 (test code = 90666) CBC W/AUTO [id number] 00:00:00 Test Item Value Reference Range Interpretation [...] NUCLEATED RBCS (test code = 0.00 K/UL 78550) CBC W/AUTO [id number] 00:00:00 Test Item Value Reference Range Interpretation [...] NUCLEATED RBCS (test code = 0.00 K/UL 97717) COMPREHENSIVE METABOLIC [id number] 00:00:00 Test Item Value Reference Range Interpretation Comments GLUCOSE (test code = 2217) 92 MG/DL BUN (test code = 2208) 9 MG/DL CREATININE (test code = 2214) 0.75 MG/DL eGFR (2020 CKD-EPI) (test code 99 ML/MIN/1.73 = 84305) CALC BUN/CREAT (test code = 12 RATIO [...] ALT (test code = 2219) 27 U/L [id number] 00:00:00 Test Item Value Reference Range Interpretation Comments TSH, THIRD GENERATION (test code 0.436 UIU/ML = 2821) [id number] 00:00:00 Test Item Value Reference Range Interpretation Comments TSH, THIRD GENERATION (test code 0.436 UIU/ML = 2821) CBC W/AUTO [id number] 00:00:00 Test Item Value Reference Range Interpretation [...] NUCLEATED RBCS (test code = 0.00 K/UL 88724) CBC W/AUTO [id number] 00:00:00 Test Item Value Reference Range Interpretation [...] NUCLEATED RBCS (test code = 0.00 K/UL 12862) CBC W/AUTO [id number] 00:00:00 Test Item Value Reference Range Interpretation [...] NUCLEATED RBCS (test code = 0.00 K/UL 46325) COMPREHENSIVE METABOLIC [id number] 00:00:00 Test Item Value Reference Range Interpretation Comments GLUCOSE (test code = 2217) 92 MG/DL BUN (test code = 2208) 9 MG/DL CREATININE (test code = 2214) 0.75 MG/DL eGFR (2020 CKD-EPI) (test code 99 ML/MIN/1.73 = 09071) CALC BUN/CREAT (test code = 12 RATIO [...] code = 2219) 27 U/L COMPREHENSIVE METABOLIC [id number] 00:00:00 Test Item Value Reference Range Interpretation Comments GLUCOSE (test code = 2217) 92 MG/DL BUN (test code = 2208) 9 MG/DL CREATININE (test code = 2214) 0.75 MG/DL eGFR (2020 CKD-EPI) (test code 99 ML/MIN/1.73 = 33472) CALC BUN/CREAT (test code = 12 RATIO 2235) SODIUM (test code = 2231) 141 MEQ/L POTASSIUM (test code = 2228) 4.2 MEQ/L CHLORIDE (test code = 2215) 101 MEQ/L CARBON DIOXIDE (test code = 26 MEQ/L 220) CALCIUM (test code = 2209) 12.0 MG/DL [...] ALT (test code = 2219) 27 U/L [id number] 00:00:00 Test Item Value Reference Range Interpretation Comments TSH, THIRD GENERATION (test code 0.436 UIU/ML = 2821) [id number] 00:00:00 Test Item Value Reference Range Interpretation Comments TSH, THIRD GENERATION (test code 0.436 UIU/ML = 2821) [id number] 00:00:00 Test Item Value Reference Range Interpretation Comments TSH, THIRD GENERATION (test code 0.436 UIU/ML = 2821) CBC W/AUTO [id number] 00:00:00 Test Item Value Reference Range Interpretation [...] NUCLEATED RBCS (test code = 0.00 K/UL 36079) CBC W/AUTO [id number] 00:00:00 Test Item Value Reference Range Interpretation [...] NUCLEATED RBCS (test code = 0.00 K/UL 88360) CBC W/AUTO [id number] 00:00:00 Test Item Value Reference Range Interpretation [...] NUCLEATED RBCS (test code = 0.00 K/UL 90298) COMPREHENSIVE METABOLIC [id number] 00:00:00 Test Item Value Reference Range Interpretation Comments GLUCOSE (test code = 2217) 92 MG/DL BUN (test code = 2208) 9 MG/DL CREATININE (test code = 2214) 0.75 MG/DL eGFR (2020 CKD-EPI) (test code 99 ML/MIN/1.73 = 17699) CALC BUN/CREAT (test code = 12 RATIO [...] code = 2219) 27 U/L COMPREHENSIVE METABOLIC [id number] 00:00:00 Test Item Value Reference Range Interpretation Comments GLUCOSE (test code = 2217) 92 MG/DL BUN (test code = 2208) 9 MG/DL CREATININE (test code = 2214) 0.75 MG/DL eGFR (2020 CKD-EPI) (test code 99 ML/MIN/1.73 = 54580) CALC BUN/CREAT (test code = 12 RATIO [...] CALC GLOBULIN (test code = 4.3 G/DL 0) CALC A/G RATIO (test code = 1.0 RATIO 2233) BILIRUBIN, TOTAL (test code = 0.3 MG/DL 2206) ALKALINE PHOSPHATASE (test 92 U/L code = 2204) AST (test code = 2218) 27 U/L ALT (test code = 2219) 27 U/L [id number] 00:00:00 Test Item Value Reference Range Interpretation Comments TSH, THIRD GENERATION (test code 0.436 UIU/ML = 2821) [id number] 00:00:00 Test Item Value Reference Range Interpretation Comments TSH, THIRD GENERATION (test code 0.436 UIU/ML = 2821) [id number] 00:00:00 Test Item Value Reference Range Interpretation Comments TSH, THIRD GENERATION (test code 0.436 UIU/ML = 2821) CULTURE, [id number] 09:02:35SPECIMEN NUMBER: [id number] CULTURE, URINE SPECIMEN NUMBER: [id number] SPECIMEN COMMENT: URINE SOURCE:URINE REPORT STATUS: FINAL FINAL REPORT: 10/02/2021 10-50,000 CFU/ML UROGENITAL [place]RI[place] PRESENT NO COMM ON PATHOGENS UNLESS OTHERWISE INDICATED, ALL TESTING PER[facility]MED [facility] [address] [place] [address] [employer] INSTRUCTOR: NASH WEEKS M.D. [place] NUMBER [id number] [facility] [place]. [id number] CULTURE, [id number] 00:00:00 Test Item Value Reference Range Interpretation Comments CULTURE, URINE (test SPECIMEN NUMBER: code = 62997) [id number] CULTURE, [id number] 00:00:00 Test Item Value Reference Range Interpretation Comments CULTURE, URINE (test SPECIMEN NUMBER: code = 25607) [id number] CULTURE, [id number] 00:00:00 Test Item Value Reference Range Interpretation Comments CULTURE, URINE (test SPECIMEN NUMBER: code = 49787) [id number] CULTURE, [id number] 00:00:00 Test Item Value Reference Range Interpretation Comments CULTURE, URINE (test SPECIMEN NUMBER: code = 43443) [id number] CULTURE, [id number] 00:00:00 Test Item Value Reference Range Interpretation Comments CULTURE, URINE (test SPECIMEN NUMBER: code = 01081) [id number] COMP. METABOLIC PANEL (53304)2021-09-24 17:17:37 Test Item Value Reference Range Interpretation Comments NA (test code = 141 mmol/L 135-145 6126777156) K (test code = 4.2 mmol/L 3.5-5.0 5437463160) CL (test code = 100 mmol/L 98-108 0259144217) CO2 TOTAL (test code = 28 mmol/L 23-31 7759589770) AGAP (test code = 2-16 4488618336) BUN (test code = 9 mg/dL 7-23 4526688001) GLUCOSE (test code = 106 mg/dL 70-110 5744707254) CREATININE (test code = 0.72 mg/dL 0.50-1.04 1721943492) TOTAL BILI (test code = 0.6 mg/dL 0.1-1.5 9415031807) CALCIUM (test code = 11.7 mg/dL 8.6-10.6 H 1214021094) T PROTEIN (test code = 9.3 g/dL 6.3-8.2 H 5121335080) ALBUMIN (test code = 4.5 g/dL 3.5-5.0 2250620694) ALK PHOS (test code = 100 U/L 34-122 1333703344) ALTv (test code = 26 U/L 5-35 1742-6) AST(SGOT) (test code = 29 U/L 13-40 2949400671) eGFR (test code = mL/min/1.73m2 1511024246) YANIRA (test code = YANIRA) Association of [...] tests). Lab Interpretation Abnormal (test code = 23637-0) [facility] 17:17:37 Test Item Value Reference Range Interpretation Comments LIPASE (test code = 6027882824) 139 U/L 0-220 Lab Interpretation (test code = Normal 05544-3) [facility] THRMPLAS [id number] 17:17:17 Test Item Value Reference Range Interpretation Comments APTT Patient (test See_Comment [Automat ed code = 3173-2) message] The system which generated this result transmitted reference range : 23 - 38 Seconds . The reference range was not used to interpr et this result as normal/abnormal . YANIRA (test code = YANIRA) The [facility] patient population mean normal value for aPTT is 30 seconds. Lab Interpretation Normal (test code = 35228-0) [facility] / [id number] 17:15:16 Test Item Value Reference Range Interpretation Comments PROTIME PATIENT (test See_Comment [Auto mated message] code = 5964-2) The system [employer] generated this result transmitted ref erence range: 12.0 - 1 4.7 Seconds. The re ference range was not u sed to interpret this result as normal/abnor mal. INR (test code = 6301-6) Nor mal INR <1.1; Warfarin Therap eutic range 2.0 to 3. 0 or 2.5 to 3.5, dep ending upon the indica tions. Lab Interpretation (test Normal code = 50249-7) [facility] [id number] 17:04:54 Test Item Value Reference Range Interpretation Comments WBC (test code = See_Comment [Automated message] 6690-2) The system [facility] generated this result transmitted ref erence range: 4.30 - 1 1.10 10*3/?L. The re ference range was not u sed to interpret this result as normal/abnor mal. RBC (test code = See_Comment [Automated message] 789-8) The system [facility] generated this result transmitted ref erence [...] RDW-SD (test code 41.5 fL 39.0-49.9 = 42478-0) RDW-CV (test code 12.8 % 12.0-15.5 = 788-0) PLT (test code = See_Comment [Automated message] 777-3) The system whic h generated this result transmitted ref erence range: 166 - 35 8 10*3/?L. The re ference range was not u sed to interpret this result as normal/abnor mal. MPV (test code = 10.0 fL 9.5-12.9 71265-9) NRBC/100 WBC (test See_Comment [Automat ed message] code = 8178639073) The syste m which generated this result transmitted ref erence range: 0.0 - 10 .0 /100 WBCs. The refer ence range was not u sed to interpret this result as normal/abnor mal. NRBC x10^3 (test <0.01 See_Comment [Automated message] code = [id number]) The syste m which generated this result transmitted ref erence range: 10*3/?L. The reference range was not used to interpr et this result as normal/abnormal . GRAN MAT (NEUT) % 52.2 % (test code = 770-8) IMM GRAN % (test 0.30 % code = 6881027350) LYMPH % (test code 37.7 % = 736-9) MONO % (test code 7.3 % = 5905-5) EOS % (test code = 2.2 % 713-8) BASO % (test code 0.3 % = 706-2) GRAN MAT 3.14 10*3/uL 1.88-7.09 x10^3(ANC) (test code = 8499675111) IMM GRAN x10^3 <0.03 0.00-0.06 (test code = 1558583147) LYMPH x10^3 (test 2.27 10*3/uL 1.32-3.29 code = 731-0) MONO x10^3 (test 0.44 10*3/uL 0.33-0.92 code = 742-7) EOS x10^3 (test 0.13 10*3/uL 0.03-0.39 code = 711-2) BASO x10^3 (test <0.03 0.01-0.07 code = 704-7) [facility], [id number] 03:32:34 Test Item Value Reference Range Interpretation Comments HEPATITIS A IgM (test NON-REACTIVE NON-REACTIVE code = 21756) HEPATITIS B CORE IgM NON-REACTIVE NON-REACTIVE (test code = 4644) HEPATITIS B SURF AG NON-REACTIVE NON-REACTIVE (test code = 2739) HEPATITIS C ANTIBODY NON-REACTIVE NON-REACTIVE (test code = 4675) INTERPRETATION (NOTE) Hepatitis A HEPATITIS A: (test code sero logy shows no = 2552) evidence of acu te hepatitis A. INTERPRETATION (NOTE) Hepatitis B HEPATITIS B: (test code sero logy shows no = 31818) evidence of acu te hepatitis B and no indication of exposure to hepatitis B vir us in the previous oly eight months. INTERPRETATION (NOTE) Hepatitis C HEPATITIS C: (test code sero logy shows no = 16963) evidence of exposure to hepatitisC viru s at this time. I t can take up to 12 months after exposure tothe hepatitis C vir us for antibodies to become detectab le in the blood in certain patient s. LIPID [id number] 01:28:17 Test Item Value Reference Range Interpretation [...] <3.22 (test code = 2238) COMPREHENSIVE METABOLIC [id number] 01:28:17 Test Item Value Reference Range Interpretation Comments GLUCOSE (test code = 68 MG/DL 70-99 L 2216) BUN (test code = 7 MG/DL 6-20 2207) CREATININE (test 0.70 MG/DL 0.60-1.30 code = 221) eGFR (2020 CKD-EPI) 108 >60 (test code = 07859) ML/MIN/1.73 CALC BUN/CREAT (test 10 RATIO 6-28 code = 2235) SODIUM (test code = 138 MEQ/L 108-110 8561) POTASSIUM (test code 4.0 MEQ/L 3.5-5.4 = 2227) CHLORIDE (test code 98 MEQ/L 95-107 = 2214) CARBON DIOXIDE (test 24 MEQ/L 19-31 code = 220) CALCIUM (test code = 10.8 MG/DL 8.5-10.5 H 2208) PROTEIN, TOTAL (test 8.5 G/DL 6.1-8.3 H code = 2228) ALBUMIN (test code = 4.1 G/DL 3.5-5.2 2200) CALC GLOBULIN (test 4.4 G/DL 1.9-3.7 H code = 224) CALC A/G RATIO (test 0.9 RATIO 1.0-2.6 L code = 2233) BILIRUBIN, TOTAL 0.2 MG/DL See_Comment [Automated message] [...] = 16 U/L 5-40 2218) TSH, THIRD [id number] 00:54:02 Test Item Value Reference Range Interpretation Comments TSH, THIRD 0.553 UIU/ML 0.400-4.100 UNLESS OTHERWI SE GENERATION (test INDICATED, ALL TESTING code = 6281) PERFORMED [facility], [facility]. [address] [place], [place] [address] [place] [address] DIRECTOR: NASH WEEKS M.D. CLIA NUMBER [id number] CAP ACCREDITATION N O. [id number] LIPID [id number] 00:00:00 Test Item Value Reference Range Interpretation Comments CHOLESTEROL (test code = 2210) 213 MG/DL TRIGLYCERIDES (test code = 2232) 200 MG/DL HDL CHOLESTEROL (test code = 2220) 43 MG/DL CALC LDL CHOL (test code = 2237) 136 MG/DL RISK RATIO LDL/HDL (test code = 3.16 RATIO 2238) COMPREHENSIVE METABOLIC [id number] 00:00:00 Test Item Value Reference Range Interpretation Comments GLUCOSE (test code = 2217) 68 MG/DL BUN (test code = 2208) 7 MG/DL CREATININE (test code = 2214) 0.70 MG/DL eGFR (2020 CKD-EPI) (test 108 ML/MIN/1.73 code = 08903) CALC BUN/CREAT (test code = 10 RATIO [...] code = 2219) 16 U/L ACUTE HEPATITIS [id number] 00:00:00 Test Item Value Reference Range Interpretation Comments HEPATITIS A IgM (test code = NON-REACTIVE 09765) HEPATITIS B CORE IgM (test code NON-REACTIVE = 4444) HEPATITIS B SURF AG (test code = NON-REACTIVE 8401) HEPATITIS C ANTIBODY (test code NON-REACTIVE = 4614) INTERPRETATION HEPATITIS A: (NOTE) (test code = 2552) INTERPRETATION HEPATITIS B: (NOTE) (test code = 85952) INTERPRETATION HEPATITIS C: (NOTE) (test code = 51392) [id number] 00:00:00 Test Item Value Reference Range Interpretation Comments TSH, THIRD GENERATION (test code 0.553 UIU/ML = 2821) [id number] 00:00:00 Test Item Value Reference Range Interpretation Comments TSH, THIRD GENERATION (test code 0.553 UIU/ML = 2821) LIPID [id number] 00:00:00 Test Item Value Reference Range Interpretation Comments CHOLESTEROL (test code = 2210) 213 MG/DL TRIGLYCERIDES (test code = 2232) 200 MG/DL HDL CHOLESTEROL (test code = 2220) 43 MG/DL CALC LDL CHOL (test code = 2237) 136 MG/DL RISK RATIO LDL/HDL (test code = 3.16 RATIO 2238) COMPREHENSIVE METABOLIC [id number] 00:00:00 Test Item Value Reference Range Interpretation Comments GLUCOSE (test code = 2217) 68 MG/DL BUN (test code = 2208) 7 MG/DL CREATININE (test code = 2214) 0.70 MG/DL eGFR (2020 CKD-EPI) (test 108 ML/MIN/1.73 code = 07395) CALC BUN/CREAT (test code = 10 RATIO [...] BILIRUBIN, TOTAL (test code = 0.2 MG/DL 2207) ALKALINE PHOSPHATASE (test 117 U/L code = 2204) AST (test code = 2218) 16 U/L ALT (test code = 2219) 16 U/L ACUTE HEPATITIS [id number] 00:00:00 Test Item Value Reference Range Interpretation Comments HEPATITIS A IgM (test code = NON-REACTIVE 37698) HEPATITIS B CORE IgM (test code NON-REACTIVE = 1670) HEPATITIS B SURF AG (test code = NON-REACTIVE 8205) HEPATITIS C ANTIBODY (test code NON-REACTIVE = 4090) INTERPRETATION HEPATITIS A: (NOTE) (test code = 2552) INTERPRETATION HEPATITIS B: (NOTE) (test code = 97115) INTERPRETATION HEPATITIS C: (NOTE) (test code = 11588) [id number] 00:00:00 Test Item Value Reference Range Interpretation Comments TSH, THIRD GENERATION (test code 0.553 UIU/ML = 2821) [id number] 00:00:00 Test Item Value Reference Range Interpretation Comments TSH, THIRD GENERATION (test code 0.553 UIU/ML = 2821) LIPID [id number] 00:00:00 Test Item Value Reference Range Interpretation Comments CHOLESTEROL (test code = 2210) 213 MG/DL TRIGLYCERIDES (test code = 2232) 200 MG/DL HDL CHOLESTEROL (test code = 2220) 43 MG/DL CALC LDL CHOL (test code = 2237) 136 MG/DL RISK RATIO LDL/HDL (test code = 3.16 RATIO 2238) LIPID [id number] 00:00:00 Test Item Value Reference Range Interpretation Comments CHOLESTEROL (test code = 2210) 213 MG/DL TRIGLYCERIDES (test code = 2232) 200 MG/DL HDL CHOLESTEROL (test code = 2220) 43 MG/DL CALC LDL CHOL (test code = 2237) 136 MG/DL RISK RATIO LDL/HDL (test code = 3.16 RATIO 2238) LIPID [id number] 00:00:00 Test Item Value Reference Range Interpretation Comments CHOLESTEROL (test code = 2210) 213 MG/DL TRIGLYCERIDES (test code = 2232) 200 MG/DL HDL CHOLESTEROL (test code = 2220) 43 MG/DL CALC LDL CHOL (test code = 2237) 136 MG/DL RISK RATIO LDL/HDL (test code = 3.16 RATIO 2238) COMPREHENSIVE METABOLIC [id number] 00:00:00 Test Item Value Reference Range Interpretation Comments GLUCOSE (test code = 2217) 68 MG/DL BUN (test code = 2208) 7 MG/DL CREATININE (test code = 2214) 0.70 MG/DL eGFR (2020 CKD-EPI) (test 108 ML/MIN/1.73 code = 69550) CALC BUN/CREAT (test code = 10 RATIO [...] code = 2219) 16 U/L COMPREHENSIVE METABOLIC [id number] 00:00:00 Test Item Value Reference Range Interpretation Comments GLUCOSE (test code = 2217) 68 MG/DL BUN (test code = 2208) 7 MG/DL CREATININE (test code = 2214) 0.70 MG/DL eGFR (2020 CKD-EPI) (test 108 ML/MIN/1.73 code = 99626) CALC BUN/CREAT (test code = 10 RATIO [...] code = 2219) 16 U/L COMPREHENSIVE METABOLIC [id number] 00:00:00 Test Item Value Reference Range Interpretation Comments GLUCOSE (test code = 2217) 68 MG/DL BUN (test code = 2208) 7 MG/DL CREATININE (test code = 2214) 0.70 MG/DL eGFR (2020 CKD-EPI) (test 108 ML/MIN/1.73 code = 27192) CALC BUN/CREAT (test code = 10 RATIO [...] code = 2219) 16 U/L ACUTE HEPATITIS [id number] 00:00:00 Test Item Value Reference Range Interpretation Comments HEPATITIS A IgM (test code = NON-REACTIVE 30930) HEPATITIS B CORE IgM (test code NON-REACTIVE = 4644) HEPATITIS B SURF AG (test code = NON-REACTIVE 2739) HEPATITIS C ANTIBODY (test code NON-REACTIVE = 4675) INTERPRETATION HEPATITIS A: (NOTE) (test code = 2552) INTERPRETATION HEPATITIS B: (NOTE) (test code = 95355) INTERPRETATION HEPATITIS C: (NOTE) (test code = 79797) ACUTE HEPATITIS [id number] 00:00:00 Test Item Value Reference Range Interpretation Comments HEPATITIS A IgM (test code = NON-REACTIVE 86962) HEPATITIS B CORE IgM (test code NON-REACTIVE = 4644) HEPATITIS B SURF AG (test code = NON-REACTIVE 2739) HEPATITIS C ANTIBODY (test code NON-REACTIVE = 4675) INTERPRETATION HEPATITIS A: (NOTE) (test code = 2552) INTERPRETATION HEPATITIS B: (NOTE) (test code = 19810) INTERPRETATION HEPATITIS C: (NOTE) (test code = 66460) [id number] 00:00:00 Test Item Value Reference Range Interpretation Comments TSH, THIRD GENERATION (test code 0.553 UIU/ML = 2821) [id number] 00:00:00 Test Item Value Reference Range Interpretation Comments TSH, THIRD GENERATION (test code 0.553 UIU/ML = 2821) [id number] 00:00:00 Test Item Value Reference Range Interpretation Comments TSH, THIRD GENERATION (test code 0.553 UIU/ML = 2821) ACUTE HEPATITIS [id number] 00:00:00 Test Item Value Reference Range Interpretation Comments HEPATITIS A IgM (test code = NON-REACTIVE 45918) HEPATITIS B CORE IgM (test code NON-REACTIVE = 4644) HEPATITIS B SURF AG (test code = NON-REACTIVE 1679) HEPATITIS C ANTIBODY (test code NON-REACTIVE = 4615) INTERPRETATION HEPATITIS A: (NOTE) (test code = 2552) INTERPRETATION HEPATITIS B: (NOTE) (test code = 14772) INTERPRETATION HEPATITIS C: (NOTE) (test code = 33382) [id number] 00:00:00 Test Item Value Reference Range Interpretation Comments TSH, THIRD GENERATION (test code 0.553 UIU/ML = 2821) [id number] 00:00:00 Test Item Value Reference Range Interpretation Comments TSH, THIRD GENERATION (test code 0.553 UIU/ML = 2821) LIPID [id number] 00:00:00 Test Item Value Reference Range Interpretation Comments CHOLESTEROL (test code = 2210) 213 MG/DL TRIGLYCERIDES (test code = 2232) 200 MG/DL HDL CHOLESTEROL (test code = 2220) 43 MG/DL CALC LDL CHOL (test code = 2237) 136 MG/DL RISK RATIO LDL/HDL (test code = 3.16 RATIO 2238) LIPID [id number] 00:00:00 Test Item Value Reference Range Interpretation Comments CHOLESTEROL (test code = 2210) 213 MG/DL TRIGLYCERIDES (test code = 2232) 200 MG/DL HDL CHOLESTEROL (test code = 2220) 43 MG/DL CALC LDL CHOL (test code = 2237) 136 MG/DL RISK RATIO LDL/HDL (test code = 3.16 RATIO 2238) COMPREHENSIVE METABOLIC [id number] 00:00:00 Test Item Value Reference Range Interpretation Comments GLUCOSE (test code = 2217) 68 MG/DL BUN (test code = 2208) 7 MG/DL CREATININE (test code = 2214) 0.70 MG/DL eGFR (2020 CKD-EPI) (test 108 ML/MIN/1.73 code = 15993) CALC BUN/CREAT (test code = 10 RATIO [...] code = 2219) 16 U/L COMPREHENSIVE METABOLIC [id number] 00:00:00 Test Item Value Reference Range Interpretation Comments GLUCOSE (test code = 2217) 68 MG/DL BUN (test code = 2208) 7 MG/DL CREATININE (test code = 2214) 0.70 MG/DL eGFR (2020 CKD-EPI) (test 108 ML/MIN/1.73 code = 59199) CALC BUN/CREAT (test code = 10 RATIO [...] code = 2219) 16 U/L ACUTE HEPATITIS [id number] 00:00:00 Test Item Value Reference Range Interpretation Comments HEPATITIS A IgM (test code = NON-REACTIVE 12213) HEPATITIS B CORE IgM (test code NON-REACTIVE = 3325) HEPATITIS B SURF AG (test code = NON-REACTIVE 4803) HEPATITIS C ANTIBODY (test code NON-REACTIVE = 7057) INTERPRETATION HEPATITIS A: (NOTE) (test code = 2552) INTERPRETATION HEPATITIS B: (NOTE) (test code = 39507) INTERPRETATION HEPATITIS C: (NOTE) (test code = 75522) ACUTE HEPATITIS [id number] 00:00:00 Test Item Value Reference Range Interpretation Comments HEPATITIS A IgM (test code = NON-REACTIVE 05048) HEPATITIS B CORE IgM (test code NON-REACTIVE = 4644) HEPATITIS B SURF AG (test code = NON-REACTIVE 2739) HEPATITIS C ANTIBODY (test code NON-REACTIVE = 4675) INTERPRETATION HEPATITIS A: (NOTE) (test code = 2552) INTERPRETATION HEPATITIS B: (NOTE) (test code = 44008) INTERPRETATION HEPATITIS C: (NOTE) (test code = 91600) [id number] 00:00:00 Test Item Value Reference Range Interpretation Comments TSH, THIRD GENERATION (test code 0.553 UIU/ML = 2821) [id number] 00:00:00 Test Item Value Reference Range Interpretation Comments TSH, THIRD GENERATION (test code 0.553 UIU/ML = 2821) [id number] 00:00:00 Test Item Value Reference Range Interpretation Comments TSH, THIRD GENERATION (test code 0.553 UIU/ML = 2821) CBC W/AUTO DIFF WITH [id number] 21:31:09 Test Item Value Reference Range Interpretation [...] RBCS 0.00 K/UL 0.00-0.11 (test code = 53958) CBC W/AUTO [id number] 00:00:00 Test Item Value Reference Range Interpretation [...] NUCLEATED RBCS (test code = 0.00 K/UL 27821) CBC W/AUTO [id number] 00:00:00 Test Item Value Reference Range Interpretation [...] NUCLEATED RBCS (test code = 0.00 K/UL 74559) CBC W/AUTO [id number] 00:00:00 Test Item Value Reference Range Interpretation [...] NUCLEATED RBCS (test code = 0.00 K/UL 21687) CBC W/AUTO [id number] 00:00:00 Test Item Value Reference Range Interpretation [...] NUCLEATED RBCS (test code = 0.00 K/UL 92919) CBC W/AUTO [id number] 00:00:00 Test Item Value Reference Range Interpretation [...] NUCLEATED RBCS (test code = 0.00 K/UL 60528) CBC W/AUTO [id number] 00:00:00 Test Item Value Reference Range Interpretation [...] NUCLEATED RBCS (test code = 0.00 K/UL 84147) CBC W/AUTO [id number] 00:00:00 Test Item Value Reference Range Interpretation [...] NUCLEATED RBCS (test code = 0.00 K/UL 32872) CBC W/AUTO [id number] 00:00:00 Test Item Value Reference Range Interpretation [...] NUCLEATED RBCS (test code = 0.00 K/UL 87632) CBC W/AUTO [id number] 00:00:00 Test Item Value Reference Range Interpretation [...] NUCLEATED RBCS (test code = 0.00 K/UL 06437) CBC W/AUTO [id number] 00:00:00 Test Item Value Reference Range Interpretation [...] NUCLEATED RBCS (test code = 0.00 K/UL 25310) CBC W/AUTO [id number] 00:00:00 Test Item Value Reference Range Interpretation [...] NUCLEATED RBCS (test code = 0.00 K/UL 19265) CBC W/AUTO [id number] 00:00:00 Test Item Value Reference Range Interpretation [...] NUCLEATED RBCS (test code = 0.00 K/UL 49570) HEMOGLOBIN [id number] 03:18:19 Test Item Value Reference Range Interpretation Comments HEMOGLOBIN A1c (test 5.8 % 4.2-5.6 H UNLESS OTHERWISE code = 81944) INDICATED, ALL TESTING PERFORMED [facility] [employer] [address] [place] [address] [employer] DIRECTOR: NASH WEEKS M.D. CLIA NUMBER [id number] CAP ACCREDITATION N O. [id number] HIV 1/2 4TH GEN, RFLX [id number] 03:04:30 Test Item Value Reference Range Interpretation Comments HIV 1/2 4TH GEN, RFLX CONF (test NON-REACTIVE NON-REACTIVE code = 3514) HIV AB/AG COMBO RFLX [id number] 00:00:00 Test Item Value Reference Range Interpretation Comments HIV 1/2 4TH GEN, RFLX CONF (test NON-REACTIVE code = 3514) HEMOGLOBIN [id number] 00:00:00 Test Item Value Reference Range Interpretation Comments HEMOGLOBIN A1c (test code = 36693) 5.8 % HEMOGLOBIN [id number] 00:00:00 Test Item Value Reference Range Interpretation Comments HEMOGLOBIN A1c (test code = 12912) 5.8 % HIV AB/AG COMBO RFLX [id number] 00:00:00 Test Item Value Reference Range Interpretation Comments HIV 1/2 4TH GEN, RFLX CONF (test NON-REACTIVE code = 3514) HIV AB/AG COMBO RFLX [id number] 00:00:00 Test Item Value Reference Range Interpretation Comments HIV 1/2 4TH GEN, RFLX CONF (test NON-REACTIVE code = 3514) HEMOGLOBIN [id number] 00:00:00 Test Item Value Reference Range Interpretation Comments HEMOGLOBIN A1c (test code = 05739) 5.8 % HEMOGLOBIN [id number] 00:00:00 Test Item Value Reference Range Interpretation Comments HEMOGLOBIN A1c (test code = 72321) 5.8 % HEMOGLOBIN [id number] 00:00:00 Test Item Value Reference Range Interpretation Comments HEMOGLOBIN A1c (test code = 71604) 5.8 % HIV AB/AG COMBO RFLX [id number] 00:00:00 Test Item Value Reference Range Interpretation Comments HIV 1/2 4TH GEN, RFLX CONF (test NON-REACTIVE code = 3514) HIV AB/AG COMBO RFLX [id number] 00:00:00 Test Item Value Reference Range Interpretation Comments HIV 1/2 4TH GEN, RFLX CONF (test NON-REACTIVE code = 3514) HEMOGLOBIN [id number] 00:00:00 Test Item Value Reference Range Interpretation Comments HEMOGLOBIN A1c (test code = 82854) 5.8 % HEMOGLOBIN [id number] 00:00:00 Test Item Value Reference Range Interpretation Comments HEMOGLOBIN A1c (test code = 78282) 5.8 % HEMOGLOBIN [id number] 00:00:00 Test Item Value Reference Range Interpretation Comments HEMOGLOBIN A1c (test code = 55410) 5.8 % HEMOGLOBIN [id number] 00:00:00 Test Item Value Reference Range Interpretation Comments HEMOGLOBIN A1c (test code = 52862) 5.8 % HIV AB/AG COMBO RFLX [id number] 00:00:00 Test Item Value Reference Range Interpretation Comments HIV 1/2 4TH GEN, RFLX CONF (test NON-REACTIVE code = 3514) HIV AB/AG COMBO RFLX [id number] 00:00:00 Test Item Value Reference Range Interpretation Comments HIV 1/2 4TH GEN, RFLX CONF (test NON-REACTIVE code = 3514) HEMOGLOBIN [id number] 00:00:00 Test Item Value Reference Range Interpretation Comments HEMOGLOBIN A1c (test code = 22434) 5.8 % HEMOGLOBIN [id number] 00:00:00 Test Item Value Reference Range Interpretation Comments HEMOGLOBIN A1c (test code = 59874) 5.8 % HEMOGLOBIN [id number] 00:00:00 Test Item Value Reference Range Interpretation Comments HEMOGLOBIN A1c (test code = 57203) 5.8 % COMP. METABOLIC PANEL (91476)2021-04-10 21:13:43 Test Item Value Reference Range Interpretation Comments NA (test code = 136 mmol/L 135-145 0887333056) K (test code = 4.3 mmol/L 3.5-5.0 6701986701) CL (test code = 96 mmol/L 98-108 L 2040609575) CO2 TOTAL (test code = 28 mmol/L 23-31 4633780894) AGAP (test code = 2-16 2060789315) BUN (test code = 9 mg/dL 7-23 1301479921) GLUCOSE (test code = 102 mg/dL 70-110 6449740972) CREATININE (test code = 0.69 mg/dL 0.50-1.04 5829274290) TOTAL BILI (test code = 0.4 mg/dL 0.1-1.9 2648011896) CALCIUM (test code = 11.0 mg/dL 8.6-10.6 H 7378409207) T PROTEIN (test code = 9.2 g/dL 6.3-8.2 H 3460251608) ALBUMIN (test code = 4.5 g/dL 3.5-5.0 4597564915) ALK PHOS (test code = 113 U/L 34-122 1488279516) ALTv (test code = 22 U/L 5-35 1742-6) AST(SGOT) (test code = 25 U/L 13-40 3634460916) eGFR (test code = mL/min/1.73m2 2895351947) YANIRA (test code = YANIRA) Association of [...] tests). Lab Interpretation Abnormal (test code = 69460-5) [facility]CREAT[facility] [id number] 21:13:17 Test Item Value Reference Range Interpretation Comments CK (test code = 1628220775) 118 U/L 33-194 Lab Interpretation (test code = Normal 71562-7) [facility]way[facility] WITH [id number] 21:01:01 Test Item Value Reference Range Interpretation Comments WBC (test code = See_Comment [Automated message] 6690-2) The system [employer] generated this result transmitted ref erence range: 4.30 - 1 1.10 10*3/?L. The re ference range was not u sed to interpret this result as normal/abnor mal. RBC (test code = See_Comment [Automated message] 789-8) The system [employer] generated this result transmitted ref erence range: [...] RDW-SD (test code 40.6 fL 39.0-49.9 = 27277-8) RDW-CV (test code 12.6 % 12.0-15.5 = 788-0) PLT (test code = See_Comment [Automated message] 777-3) The system [employer] generated this result transmitted ref erence range: 166 - 35 8 10*3/?L. The re ference range was not u sed to interpret this result as normal/abnor mal. MPV (test code = 9.8 fL 9.5-12.9 91391-6) NRBC/100 WBC (test See_Comment [Automat ed message] code = 9441811290) The syste m which generated this result transmitted ref erence range: 0.0 - 10 .0 /100 WBCs. The refer ence range was not u sed to interpret this result as normal/abnor mal. NRBC x10^3 (test <0.01 See_Comment [Automated message] code = 5673825625) The syste m which generated this result transmitted ref erence range: 10*3/?L. The reference range was not used to interpr et this result as normal/abnormal . GRAN MAT (NEUT) % 61.0 % (test code = 770-8) IMM GRAN % (test 0.20 % code = 8570728653) LYMPH % (test code 30.1 % = 736-9) MONO % (test code 6.4 % = 5905-5) EOS % (test code = 2.1 % 713-8) BASO % (test code 0.2 % = 706-2) GRAN MAT 5.35 10*3/uL 1.88-7.09 x10^3(ANC) (test code = 6213019802) IMM GRAN x10^3 <0.03 0.00-0.06 (test code = 3055401086) LYMPH x10^3 (test 2.64 10*3/uL 1.32-3.29 code = 731-0) MONO x10^3 (test 0.56 10*3/uL 0.33-0.92 code = 742-7) EOS x10^3 (test 0.18 10*3/uL 0.03-0.39 code = 711-2) BASO x10^3 (test <0.03 0.01-0.07 code = 704-7) [facility]way[facility] [id number] 20:49:00 Test Item Value Reference Range Interpretation Comments POCT PREG (test code = 1605) Negative On board controls acceptable with Present C Line (test code = 3574) POCT PREG LOT # (test code = HCG [id number] [id number]) POCT PREG TEST DATE (test 05/23/2022 code = 3576) Lab Interpretation (test code = Normal 13704-1) [facility]wayTROPONIN [id number] 01:38:03 Test Item Value Reference Range Interpretation Comments TROPONIN I (test 0.002 ng/mL See_Comment [Automated code = 4888666532) message] The system which generated this result [...] ? Lab Interpretation Normal (test code = 29192-1) [facility]. METABOLIC PANEL (72803)2020-09-11 01:38:03 Test Item Value Reference Range Interpretation Comments NA (test code = 141 mmol/L 135-145 3240697772) K (test code = 3.9 mmol/L 3.5-5.0 3435063584) CL (test code = 103 mmol/L 98-108 7878277413) CO2 TOTAL (test code = 27 mmol/L 23-31 4184946931) AGAP (test code = 2-16 2969519128) BUN (test code = 13 mg/dL 7-23 9169681647) GLUCOSE (test code = 131 mg/dL 70-110 H 7678019813) CREATININE (test code = 0.76 mg/dL 0.50-1.04 6657994853) TOTAL BILI (test code = 0.4 mg/dL 0.1-1.1 8118969366) CALCIUM (test code = 11.4 mg/dL 8.6-10.6 H 0742703785) T PROTEIN (test code = 9.5 g/dL 6.3-8.2 H 8350965831) ALBUMIN (test code = 4.6 g/dL 3.5-5.0 1299772184) ALK PHOS (test code = 108 U/L 34-122 3023785564) ALTv (test code = 26 U/L 5-35 1742-6) AST(SGOT) (test code = 33 U/L 13-40 3145372754) eGFR (test code = mL/min/1.73m2 6376921884) YANIRA (test code = YANIRA) Association of [...] tests). Lab Interpretation Abnormal (test code = 03041-1) [facility] [id number] 01:38:03 Test Item Value Reference Range Interpretation Comments LIPASE (test code = [id number]) 195 U/L 0-220 Lab Interpretation (test code = Normal 94090-2) [id number] 01:20:00 Test Item Value Reference Range Interpretation Comments APTT Patient (test See_Comment [Automat ed code = 3173-2) message] The system which generated this result transmitted reference range : 23 - 38 Seconds . The reference range was not used to interpr et this result as normal/abnormal . YANIRA (test code = YANIRA) The [facility] patient population mean normal value for aPTT is 30 seconds. Lab Interpretation Normal (test code = 47182-0) [facility]PROT[facility] / [id number] 01:17:58 Test Item Value Reference Range Interpretation Comments PROTIME PATIENT (test See_Comment [Auto mated message] code = 5964-2) The system [employer] generated this result transmitted ref erence range: 12.0 - 1 4.7 Seconds. The re ference range was not u sed to interpret this result as normal/abnor mal. INR (test code = 6301-6) Nor mal INR <1.1; Warfarin Therap eutic range 2.0 to 3. 0 or 2.5 to 3.5, dep ending upon the indica tions. Lab Interpretation (test Normal code = 96006-6) [facility] WITH [id number] 01:10:57 Test Item Value Reference Range Interpretation Comments WBC (test code = See_Comment [Automated message] 6690-2) The system [employer] generated this result transmitted ref erence range: 4.30 - 1 1.10 10*3/?L. The re ference range was not u sed to interpret this result as normal/abnor mal. RBC (test code = See_Comment [Automated message] 229-8) The system [employer] generated this result transmitted ref erence range: [...] RDW-SD (test code 40.8 fL 39.0-49.9 = 73289-1) RDW-CV (test code 12.6 % 12.0-15.5 = 788-0) PLT (test code = See_Comment [Automated message] 967-3) The system [employer] generated this result transmitted ref erence range: 166 - 35 8 10*3/?L. The re ference range was not u sed to interpret this result as normal/abnor mal. MPV (test code = 10.0 fL 9.5-12.9 10358-2) NRBC/100 WBC (test See_Comment [Automat ed message] code = 7103022308) The syste m which generated this result transmitted ref erence range: 0.0 - 10 .0 /100 WBCs. The refer ence range was not u sed to interpret this result as normal/abnor mal. NRBC x10^3 (test <0.01 See_Comment [Automated message] code = 1726361200) The syste m which generated this result transmitted ref erence range: 10*3/?L. The reference range was not used to interpr et this result as normal/abnormal . GRAN MAT (NEUT) % 53.6 % (test code = 770-8) IMM GRAN % (test 0.30 % code = 1900024119) LYMPH % (test code 35.7 % = 736-9) MONO % (test code 7.7 % = 5905-5) EOS % (test code = 2.4 % 713-8) BASO % (test code 0.3 % = 706-2) GRAN MAT 3.94 10*3/uL 1.88-7.09 x10^3(ANC) (test code = 4773877534) IMM GRAN x10^3 <0.03 0.00-0.06 (test code = 8755289713) LYMPH x10^3 (test 2.63 10*3/uL 1.32-3.29 code = 731-0) MONO x10^3 (test 0.57 10*3/uL 0.33-0.92 code = 742-7) EOS x10^3 (test 0.18 10*3/uL 0.03-0.39 code = 711-2) BASO x10^3 (test <0.03 0.01-0.07 code = 704-7) [facility]00 Test Item Value Reference Range Interpretation Comments APPEARANCE (test code = Cloudy Clear A 0628921845) COLOR (test code = Yellow Yellow 5155135839) PH (test code = 4.8-8.0 9074927311) SP GRAVITY (test code = 1.003-1.030 7641298818) GLU U QUAL (test code = Normal Normal 3487604911) BLOOD (test code = Negative Negative INTERFERE NCE FROM 9446930216) ASCORBIC ACID M AY CAUSE FALSE NEG ATIVE RESULT KETONES (test code = Negative Negative 0346061695) PROTEIN (test code = 30 mg/dL Negative A 2887-8) UROBILIN (test code = 2.0 mg/dL Normal A 4169152789) BILIRUBIN (test code = Negative Negative 6351838846) NITRITE (test code = Negative Negative 8687195902) LEUK ANA (test code = 25/uL Negative A 8913147498) RBC/HPF (test code = <1 See_Comment [Autom ated message] 9978398123) The system [employer] generated this result transmitted ref erence range: 0 - 3 HP F. The reference range was not used to int erpret this result as normal/abnormal . WBC/HPF (test code = See_Comment H [Autom ated message] 5643525738) The system [employer] generated this result transmitted ref erence range: 0 - 5 HP F. The reference range was not used to int erpret this result as normal/abnormal . BACTERIA (test code = Many Negative A 2462003106) MUCOUS (test code = Slight Negative LPF A 7282607782) AMORPHOUS (test code = Few Rare HPF A 6005034445) SQ EPITH (test code = HPF 1694998278) CA OXALATE (test code = See_Comment H [Au tomated message] 3640211950) The system [employer] generated this result transmitted ref erence range: <=1 HPF. The reference range was not used to int erpret this result as normal/abnormal . Lab Interpretation Abnormal (test code = 19657-0) [facility] [id number] 00:00:00 Test Item Value Reference Range Interpretation Comments HEMOGLOBIN A1c (test code = 16675) 5.8 % HEMOGLOBIN [id number] 00:00:00 Test Item Value Reference Range Interpretation Comments HEMOGLOBIN A1c (test code = 86525) 5.8 % CBC W/AUTO [id number] 00:00:00 Test Item Value Reference Range Interpretation [...] code = 1015) 230 K/UL CBC W/AUTO [id number] 00:00:00 Test Item Value Reference Range Interpretation [...] code = 1015) 230 K/UL COMPREHENSIVE METABOLIC [id number] 00:00:00 Test Item Value Reference Range Interpretation Comments GLUCOSE (test code = 2217) 113 MG/DL BUN (test code = 2208) 8 MG/DL CREATININE (test code = 2214) 0.70 MG/DL eGFR AMER. (test code 122 ML/MIN/1.73 = 39423) eGFR NON- AMER. (test 105 ML/MIN/1.73 code = 10616) CALC BUN/CREAT (test code = 11 RATIO [...] (test code = 2219) 18 U/L LIPID [id number] 00:00:00 Test Item Value Reference Range Interpretation Comments CHOLESTEROL (test code = 2210) 191 MG/DL TRIGLYCERIDES (test code = 2232) 173 MG/DL HDL CHOLESTEROL (test code = 2220) 40 MG/DL CALC LDL CHOL (test code = 2237) 122 MG/DL RISK RATIO LDL/HDL (test code = 3.05 RATIO 8) VITAMIN D, 25 [id number] 00:00:00 Test Item Value Reference Range Interpretation Comments VITAMIN D, 25 OH (test code = 4958) 25 NG/ML HEMOGLOBIN [id number] 00:00:00 Test Item Value Reference Range Interpretation Comments HEMOGLOBIN A1c (test code = 65181) 5.8 % HEMOGLOBIN [id number] 00:00:00 Test Item Value Reference Range Interpretation Comments HEMOGLOBIN A1c (test code = 37472) 5.8 % HEMOGLOBIN [id number] 00:00:00 Test Item Value Reference Range Interpretation Comments HEMOGLOBIN A1c (test code = 23165) 5.8 % HEMOGLOBIN [id number] 00:00:00 Test Item Value Reference Range Interpretation Comments HEMOGLOBIN A1c (test code = 18486) 5.8 % CBC W/AUTO [id number] 00:00:00 Test Item Value Reference Range Interpretation [...] code = 1015) 230 K/UL CBC W/AUTO [id number] 00:00:00 Test Item Value Reference Range Interpretation [...] code = 1015) 230 K/UL COMPREHENSIVE METABOLIC [id number] 00:00:00 Test Item Value Reference Range Interpretation Comments GLUCOSE (test code = 2217) 113 MG/DL BUN (test code = 2208) 8 MG/DL CREATININE (test code = 2214) 0.70 MG/DL eGFR AMER. (test code 122 ML/MIN/1.73 = 03367) eGFR NON- AMER. (test 105 ML/MIN/1.73 code = 65405) CALC BUN/CREAT (test code = 11 RATIO [...] (test code = 2219) 18 U/L LIPID [id number] 00:00:00 Test Item Value Reference Range Interpretation Comments CHOLESTEROL (test code = 2210) 191 MG/DL TRIGLYCERIDES (test code = 2232) 173 MG/DL HDL CHOLESTEROL (test code = 2220) 40 MG/DL CALC LDL CHOL (test code = 2237) 122 MG/DL RISK RATIO LDL/HDL (test code = 3.05 RATIO 2238) VITAMIN D, 25 [id number] 00:00:00 Test Item Value Reference Range Interpretation Comments VITAMIN D, 25 OH (test code = 4958) 25 NG/ML CBC W/AUTO [id number] 00:00:00 Test Item Value Reference Range Interpretation [...] code = 1015) 230 K/UL CBC W/AUTO [id number] 00:00:00 Test Item Value Reference Range Interpretation [...] (test code = 1015) 230 K/UL HEMOGLOBIN [id number] 00:00:00 Test Item Value Reference Range Interpretation Comments HEMOGLOBIN A1c (test code = 33402) 5.8 % HEMOGLOBIN [id number] 00:00:00 Test Item Value Reference Range Interpretation Comments HEMOGLOBIN A1c (test code = 16034) 5.8 % HEMOGLOBIN [id number] 00:00:00 Test Item Value Reference Range Interpretation Comments HEMOGLOBIN A1c (test code = 12367) 5.8 % CBC W/AUTO [id number] 00:00:00 Test Item Value Reference Range Interpretation [...] code = 1015) 230 K/UL CBC W/AUTO [id number] 00:00:00 Test Item Value Reference Range Interpretation [...] code = 1015) 230 K/UL CBC W/AUTO [id number] 00:00:00 Test Item Value Reference Range Interpretation [...] code = 1015) 230 K/UL COMPREHENSIVE METABOLIC [id number] 00:00:00 Test Item Value Reference Range Interpretation Comments GLUCOSE (test code = 2217) 113 MG/DL BUN (test code = 2208) 8 MG/DL CREATININE (test code = 2214) 0.70 MG/DL eGFR AMER. (test code 122 ML/MIN/1.73 = 26866) eGFR NON- AMER. (test 105 ML/MIN/1.73 code = 68390) CALC BUN/CREAT (test code = 11 RATIO [...] code = 2219) 18 U/L COMPREHENSIVE METABOLIC [id number] 00:00:00 Test Item Value Reference Range Interpretation Comments GLUCOSE (test code = 2217) 113 MG/DL BUN (test code = 2208) 8 MG/DL CREATININE (test code = 2214) 0.70 MG/DL eGFR AMER. (test code 122 ML/MIN/1.73 = 53518) eGFR NON- AMER. (test 105 ML/MIN/1.73 code = 50594) CALC BUN/CREAT (test code = 11 RATIO [...] BILIRUBIN, TOTAL (test code = 0.2 MG/DL 7) ALKALINE PHOSPHATASE (test 100 U/L code = 2204) AST (test code = 2218) 19 U/L ALT (test code = 2219) 18 U/L LIPID [id number] 00:00:00 Test Item Value Reference Range Interpretation Comments CHOLESTEROL (test code = 2210) 191 MG/DL TRIGLYCERIDES (test code = 2232) 173 MG/DL HDL CHOLESTEROL (test code = 2220) 40 MG/DL CALC LDL CHOL (test code = 2237) 122 MG/DL RISK RATIO LDL/HDL (test code = 3.05 RATIO 2238) LIPID [id number] 00:00:00 Test Item Value Reference Range Interpretation Comments CHOLESTEROL (test code = 2210) 191 MG/DL TRIGLYCERIDES (test code = 2232) 173 MG/DL HDL CHOLESTEROL (test code = 2220) 40 MG/DL CALC LDL CHOL (test code = 2237) 122 MG/DL RISK RATIO LDL/HDL (test code = 3.05 RATIO 2238) COMPREHENSIVE METABOLIC [id number] 00:00:00 Test Item Value Reference Range Interpretation Comments GLUCOSE (test code = 2217) 113 MG/DL BUN (test code = 2208) 8 MG/DL CREATININE (test code = 2214) 0.70 MG/DL eGFR AMER. (test code 122 ML/MIN/1.73 = 88065) eGFR NON- AMER. (test 105 ML/MIN/1.73 code = 24039) CALC BUN/CREAT (test code = 11 RATIO [...] = 2219) 18 U/L VITAMIN D, 25 [id number] 00:00:00 Test Item Value Reference Range Interpretation Comments VITAMIN D, 25 OH (test code = 4958) 25 NG/ML VITAMIN D, 25 [id number] 00:00:00 Test Item Value Reference Range Interpretation Comments VITAMIN D, 25 OH (test code = 4958) 25 NG/ML LIPID [id number] 00:00:00 Test Item Value Reference Range Interpretation Comments CHOLESTEROL (test code = 2210) 191 MG/DL TRIGLYCERIDES (test code = 2232) 173 MG/DL HDL CHOLESTEROL (test code = 2220) 40 MG/DL CALC LDL CHOL (test code = 2237) 122 MG/DL RISK RATIO LDL/HDL (test code = 3.05 RATIO 2238) HEMOGLOBIN [id number] 00:00:00 Test Item Value Reference Range Interpretation Comments HEMOGLOBIN A1c (test code = 87725) 5.8 % VITAMIN D, 25 [id number] 00:00:00 Test Item Value Reference Range Interpretation Comments VITAMIN D, 25 OH (test code = 4958) 25 NG/ML HEMOGLOBIN [id number] 00:00:00 Test Item Value Reference Range Interpretation Comments HEMOGLOBIN A1c (test code = 92961) 5.8 % HEMOGLOBIN [id number] 00:00:00 Test Item Value Reference Range Interpretation Comments HEMOGLOBIN A1c (test code = 19747) 5.8 % CBC W/AUTO [id number] 00:00:00 Test Item Value Reference Range Interpretation [...] code = 1015) 230 K/UL CBC W/AUTO [id number] 00:00:00 Test Item Value Reference Range Interpretation [...] code = 1015) 230 K/UL CBC W/AUTO [id number] 00:00:00 Test Item Value Reference Range Interpretation [...] code = 1015) 230 K/UL COMPREHENSIVE METABOLIC [id number] 00:00:00 Test Item Value Reference Range Interpretation Comments GLUCOSE (test code = 2217) 113 MG/DL BUN (test code = 2208) 8 MG/DL CREATININE (test code = 2214) 0.70 MG/DL eGFR AMER. (test code 122 ML/MIN/1.73 = 48955) eGFR NON- AMER. (test 105 ML/MIN/1.73 code = 22997) CALC BUN/CREAT (test code = 11 RATIO [...] BILIRUBIN, TOTAL (test code = 0.2 MG/DL 2207) ALKALINE PHOSPHATASE (test 100 U/L code = 2204) AST (test code = 2218) 19 U/L ALT (test code = 2219) 18 U/L COMPREHENSIVE METABOLIC [id number] 00:00:00 Test Item Value Reference Range Interpretation Comments GLUCOSE (test code = 2217) 113 MG/DL BUN (test code = 2208) 8 MG/DL CREATININE (test code = 2214) 0.70 MG/DL eGFR AMER. (test code 122 ML/MIN/1.73 = 06672) eGFR NON- AMER. (test 105 ML/MIN/1.73 code = 07522) CALC BUN/CREAT (test code = 11 RATIO [...] (test code = 2219) 18 U/L LIPID [id number] 00:00:00 Test Item Value Reference Range Interpretation Comments CHOLESTEROL (test code = 2210) 191 MG/DL TRIGLYCERIDES (test code = 2232) 173 MG/DL HDL CHOLESTEROL (test code = 2220) 40 MG/DL CALC LDL CHOL (test code = 2237) 122 MG/DL RISK RATIO LDL/HDL (test code = 3.05 RATIO 2238) LIPID [id number] 00:00:00 Test Item Value Reference Range Interpretation Comments CHOLESTEROL (test code = 2210) 191 MG/DL TRIGLYCERIDES (test code = 2232) 173 MG/DL HDL CHOLESTEROL (test code = 2220) 40 MG/DL CALC LDL CHOL (test code = 2237) 122 MG/DL RISK RATIO LDL/HDL (test code = 3.05 RATIO 2238) VITAMIN D, 25 [id number] 00:00:00 Test Item Value Reference Range Interpretation Comments VITAMIN D, 25 OH (test code = 4958) 25 NG/ML VITAMIN D, 25 [id number] 00:00:00 Test Item Value Reference Range Interpretation Comments VITAMIN D, 25 OH (test code = 4958) 25 NG/ML THYROID II PROFILE (T3U, T4, T7, TSH)2019-08-01 00:00:00 Test Item Value Reference Range Interpretation Comments T-UPTAKE (test code = 2817) 27.2 % THYROX. BIND. CAPAC. (test code 1.2 = 54145) T4 (THYROXINE) (test code = 8.4 UG/DL 2819) CORRECTED T4 (FTI) (test code = 7.0 UG/DL 2820) TSH, THIRD GENERATION (test code 0.862 UIU/ML = 2821) THYROID II PROFILE (T3U, T4, T7, TSH)2019-08-01 00:00:00 Test Item Value Reference Range Interpretation Comments T-UPTAKE (test code = 2816) 27.2 % THYROX. BIND. CAPAC. (test code 1.2 = 09362) T4 (THYROXINE) (test code = 8.4 UG/DL 2819) CORRECTED T4 (FTI) (test code = 7.0 UG/DL 2820) TSH, THIRD GENERATION (test code 0.862 UIU/ML = 2821) THYROID II PROFILE (T3U, T4, T7, TSH)2019-08-01 00:00:00 Test Item Value Reference Range Interpretation Comments T-UPTAKE (test code = 2817) 27.2 % THYROX. BIND. CAPAC. (test code 1.2 = 79665) T4 (THYROXINE) (test code = 8.4 UG/DL 2819) CORRECTED T4 (FTI) (test code = 7.0 UG/DL 2820) TSH, THIRD GENERATION (test code 0.862 UIU/ML = 2821) THYROID II PROFILE (T3U, T4, T7, TSH)2019-08-01 00:00:00 Test Item Value Reference Range Interpretation Comments T-UPTAKE (test code = 2817) 27.2 % THYROX. BIND. CAPAC. (test code 1.2 = 50792) T4 (THYROXINE) (test code = 8.4 UG/DL 2819) CORRECTED T4 (FTI) (test code = 7.0 UG/DL 2820) TSH, THIRD GENERATION (test code 0.862 UIU/ML = 2821) THYROID II PROFILE (T3U, T4, T7, TSH)2019-08-01 00:00:00 Test Item Value Reference Range Interpretation Comments T-UPTAKE (test code = 2817) 27.2 % THYROX. BIND. CAPAC. (test code 1.2 = 83906) T4 (THYROXINE) (test code = 8.4 UG/DL 2819) CORRECTED T4 (FTI) (test code = 7.0 UG/DL 2820) TSH, THIRD GENERATION (test code 0.862 UIU/ML = 2821) THYROID II PROFILE (T3U, T4, T7, TSH)2019-08-01 00:00:00 Test Item Value Reference Range Interpretation Comments T-UPTAKE (test code = 2817) 27.2 % THYROX. BIND. CAPAC. (test code 1.2 = 77189) T4 (THYROXINE) (test code = 8.4 UG/DL 2819) CORRECTED T4 (FTI) (test code = 7.0 UG/DL 2820) TSH, THIRD GENERATION (test code 0.862 UIU/ML = 2821) THYROID II PROFILE (T3U, T4, T7, TSH)2019-08-01 00:00:00 Test Item Value Reference Range Interpretation Comments T-UPTAKE (test code = 2817) 27.2 % THYROX. BIND. CAPAC. (test code 1.2 = 73652) T4 (THYROXINE) (test code = 8.4 UG/DL 2819) CORRECTED T4 (FTI) (test code = 7.0 UG/DL 2820) TSH, THIRD GENERATION (test code 0.862 UIU/ML = 2821) [id number] 22:31:00 Test Item Value Reference Range Interpretation Comments [facility] HIV 4th GEN (test Negative *NA*(03/29/18 code = CDC HIV 4th 4:31 PM) GEN) [id number] 22:31:00 Test Item Value Reference Range Interpretation Comments CDC HIV 4th GEN (test Negative *NA*(03/29/18 code = CDC HIV 4th 4:31 PM) GEN) [id number] 22:31:00 Test Item Value Reference Range Interpretation Comments [facility] HIV 4th GEN (test Negative *NA*(03/29/18 code = CDC HIV 4th 4:31 PM) GEN) [facility] [id number] 22:31:00 Test Item Value Reference Range Interpretation Comments [facility] HIV 4th GEN (test Negative *NA*(03/29/18 code = CDC HIV 4th 4:31 PM) GEN) [facility] [id number] 22:31:00 Test Item Value Reference Range Interpretation Comments [facility] HIV 4th GEN (test Negative *NA*(03/29/18 code = CDC HIV 4th 4:31 PM) GEN) [facility] CenterXkmwvknEUPAOYXKAK6408-72-36 22:31:00 Test Item Value Reference Range Interpretation Comments [facility] HIV 4th GEN (test Negative *NA*(03/29/18 code = CDC HIV 4th 4:31 PM) GEN) [facility] CyaarkqIVHJBINBHT0375-61-70 22:31:00 Test Item Value Reference Range Interpretation Comments [facility] HIV 4th GEN (test Negative *NA*(03/29/18 code = CDC HIV 4th 4:31 PM) GEN) [facility] CenterannCARDIAC [id number] 21:03:00 Test Item Value Reference Range Interpretation Comments Troponin-I (test code no gt See_Comment [Auto mated message] The = Troponin-I) system which g enerated this result transmit kuldip reference range : <=0.40. The reference r nilam was not used to interpr et this result as abiodun l/abnormal. [facility] HwgbhazIRURXFNNQTHZ7953-48-90 21:03:00 Test Item Value Reference Range Interpretation Comments AGAP (test code = AGAP) 14.2 10.0-20.0 [facility] Center[id number] 21:03:00 Test Item Value Reference Range Interpretation Comments Calcium Lvl (test code = Calcium Lvl) 11.2 8.5-10.5 [facility] CenterZntxixfDMIBUSWUTKEN8013-63-08 21:03:00 Test Item Value Reference Range Interpretation Comments Potassium Lvl (test code = Potassium 4.2 3.5-5.1 Lvl) [facility]CH[facility]FEWI7380[facility]80 21:03:00 Test Item Value Reference Range Interpretation Comments Sodium Lvl (test code = Sodium Lvl) 139 135-145 [facility] RegionUxlzmrhLKYYZWHDKZMU2482-20-77 21:03:00 Test Item Value Reference Range Interpretation Comments CO2 (test code = CO2) 27 24-32 [facility] RegionSvxgcxwYKPVOTZFLWUQ2623-70-21 21:03:00 Test Item Value Reference Range Interpretation Comments Chloride Lvl (test code = Chloride Lvl) 102 95-109 [facility] RegionDlfpasxXEZCYZTQZRSC3287-61-47 21:03:00 Test Item Value Reference Range Interpretation Comments Creatinine Lvl (test code = Creatinine 0.90 0.50-1.40 Lvl) [facility] RegionUsuebqbVHIKNWRNAEWE3134-49-69 21:03:00 Test Item Value Reference Range Interpretation Comments BUN (test code = BUN) 11 7-22 [facility] RegionYqzccflKESUTRZNHYUC1007-01-65 21:03:00 Test Item Value Reference Range Interpretation Comments Glucose Lvl (test code = Glucose Lvl) 97 70-99 [facility] RegionRvllofvARREUPQSFVQB6218-79-68 21:03:00 Test Item Value Reference Range Interpretation Comments eGFR (test code = eGFR) 79 [facility]OxsvqfyZEAJYDYHQG0267-27-39 21:03:00 Test Item Value Reference Range Interpretation Comments Hgb (test code = Hgb) 14.1 12.0-16.0 [facility] CenterThwjbxuCZFKWXLRLV3275-62-08 21:03:00 Test Item Value Reference Range Interpretation Comments MCV (test code = MCV) 89.6 80.0-98.0 [facility] CenterSjzitcwTVEBPFFFQE9659-75-83 21:03:00 Test Item Value Reference Range Interpretation Comments Hct (test code = Hct) 42.0 36.0-48.0 [facility] CenterIdljiywZYVKXITJPK8233-64-74 21:03:00 Test Item Value Reference Range Interpretation Comments MPV (test code = MPV) 8.4 7.4-10.4 [facility] CenterFkhsptqRBDIZIPAGT9819-48-30 21:03:00 Test Item Value Reference Range Interpretation Comments WBC (test code = WBC) 6.4 3.7-10.4 [facility] CenterJqkdjamIOMPBYKZEN0004-45-19 21:03:00 Test Item Value Reference Range Interpretation Comments RBC (test code = RBC) 4.68 4.20-5.40 [facility] HospitalBfpeanvOZVLJATCKI4567-13-11 21:03:00 Test Item Value Reference Range Interpretation Comments RDW (test code = RDW) 12.9 11.5-14.5 [facility] HospitalZduccisNGLNFKHDYF0109-10-66 21:03:00 Test Item Value Reference Range Interpretation Comments MCH (test code = MCH) 30.1 pg 27.0-31.0 [facility] CenterOwjcmelGZTKTEXQZI0050-34-81 21:03:00 Test Item Value Reference Range Interpretation Comments MCHC (test code = MCHC) 33.6 32.0-36.0 [facility] HospitalStfpfrwIRLQNYZZLB4527-27-08 21:03:00 Test Item Value Reference Range Interpretation Comments Platelet (test code = Platelet) 221 133-450 [facility] HospitalCARDIAC FKYFQYF8345-51-95 21:03:00 Test Item Value Reference Range Interpretation Comments Troponin-I (test code no gt See_Comment [Auto mated message] The = Troponin-I) system which g enerated this result transmit kuldip reference range : <=0.40. The reference r nilam was not used to interpr et this result as abiodun l/abnormal. [facility]WHDMAIL2379[facility]-70 21:03:00 Test Item Value Reference Range Interpretation Comments AGAP (test code = AGAP) 14.2 10.0-20.0 [facility]JYSEWVWBCP2994[facility] 21:03:00 Test Item Value Reference Range Interpretation Comments Calcium Lvl (test code = Calcium Lvl) 11.2 8.5-10.5 [facility] CenterOpserhzDGSABSDULBYQ1649-30-58 21:03:00 Test Item Value Reference Range Interpretation Comments Potassium Lvl (test code = Potassium 4.2 3.5-5.1 Lvl) [facility] CenterLksrdxlGEYIMXXGOMFM6001-36-91 21:03:00 Test Item Value Reference Range Interpretation Comments Sodium Lvl (test code = Sodium Lvl) 139 135-145 [facility]OcpikccBEDQOXPAFIUY8873-23-46 21:03:00 Test Item Value Reference Range Interpretation Comments CO2 (test code = CO2) 27 24-32 [facility] CenterTxhkecfEQMMBHRBCTOB4572-95-24 21:03:00 Test Item Value Reference Range Interpretation Comments Chloride Lvl (test code = Chloride Lvl) 102 95-109 [facility]JqyjgiiSFTJZEEBFQCF2392-60-29 21:03:00 Test Item Value Reference Range Interpretation Comments Creatinine Lvl (test code = Creatinine 0.90 0.50-1.40 Lvl) [facility] RegionKqcswlsKXPFRFWUPQFT7400-11-05 21:03:00 Test Item Value Reference Range Interpretation Comments BUN (test code = BUN) 11 7-22 [facility] RegionUyqsxtwBHJGSKSJBEHP7007-90-06 21:03:00 Test Item Value Reference Range Interpretation Comments Glucose Lvl (test code = Glucose Lvl) 97 70-99 [facility] RegionLkorrtuDNBFVORLGWYI7350-30-46 21:03:00 Test Item Value Reference Range Interpretation Comments eGFR (test code = eGFR) 79 [facility] CenterMomodcjLOJULPOJAU6118-53-74 21:03:00 Test Item Value Reference Range Interpretation Comments Hgb (test code = Hgb) 14.1 12.0-16.0 [facility] CenterRjgzsjuCAQCDIZYQH3308-87-97 21:03:00 Test Item Value Reference Range Interpretation Comments MCV (test code = MCV) 89.6 80.0-98.0 [facility] CenterMoziyvwMXPKAFXRON7484-11-75 21:03:00 Test Item Value Reference Range Interpretation Comments Hct (test code = Hct) 42.0 36.0-48.0 [facility] CenterOxsxvqmIYDSHOXQOY3942-39-43 21:03:00 Test Item Value Reference Range Interpretation Comments MPV (test code = MPV) 8.4 7.4-10.4 [facility] CenterNrovpcbFYBBXWFFIR0959-38-55 21:03:00 Test Item Value Reference Range Interpretation Comments WBC (test code = WBC) 6.4 3.7-10.4 [facility] CenterJndmojrSITBBKAQOW4243-84-94 21:03:00 Test Item Value Reference Range Interpretation Comments RBC (test code = RBC) 4.68 4.20-5.40 [facility] CenterUhurjlaGKBWLDZDVB2082-74-91 21:03:00 Test Item Value Reference Range Interpretation Comments RDW (test code = RDW) 12.9 11.5-14.5 [facility] [id number] 21:03:00 Test Item Value Reference Range Interpretation Comments MCH (test code = MCH) 30.1 pg 27.0-31.0 [facility] CenterUlanawwWCWPJAYVLY3075-96-73 21:03:00 Test Item Value Reference Range Interpretation Comments MCHC (test code = MCHC) 33.6 32.0-36.0 [facility]HluhgbsHOBWEDFGEH9813-95-19 21:03:00 Test Item Value Reference Range Interpretation Comments Platelet (test code = Platelet) 221 133-450 [facility] HospitalCARDIAC [id number] 21:03:00 Test Item Value Reference Range Interpretation Comments Troponin-I (test code no gt See_Comment [Auto mated message] The = Troponin-I) system which g enerated this result transmit kuldip reference range : <=0.40. The reference r nilam was not used to interpr et this result as abiodun l/abnormal. [facility][id number] 21:03:00 Test Item Value Reference Range Interpretation Comments AGAP (test code = AGAP) 14.2 10.0-20.0 [facility]PxpixqkFDAMSLTIDMPU1611-19-99 21:03:00 Test Item Value Reference Range Interpretation Comments Calcium Lvl (test code = Calcium Lvl) 11.2 8.5-10.5 [facility] RegionIkqibinHRVIPLRMREIK7930-78-68 21:03:00 Test Item Value Reference Range Interpretation Comments Potassium Lvl (test code = Potassium 4.2 3.5-5.1 Lvl) [facility] RegionTrgwsbxUWXAPUXPGQOR8031-14-20 21:03:00 Test Item Value Reference Range Interpretation Comments Sodium Lvl (test code = Sodium Lvl) 139 135-145 [facility] RegionVqvtzyrRHTAVYFKWIGE8162-86-18 21:03:00 Test Item Value Reference Range Interpretation Comments CO2 (test code = CO2) 27 24-32 [facility] RegionGdzmbuhAASDXWOQRHKF4526-93-73 21:03:00 Test Item Value Reference Range Interpretation Comments Chloride Lvl (test code = Chloride Lvl) 102 95-109 [facility] RegionSctylliURPCNUODFKTE9596-38-29 21:03:00 Test Item Value Reference Range Interpretation Comments Creatinine Lvl (test code = Creatinine 0.90 0.50-1.40 Lvl) [facility] RegionLzgpingHFZCYXVOZSFK2477-95-05 21:03:00 Test Item Value Reference Range Interpretation Comments BUN (test code = BUN) 11 7-22 [facility] RegionXzghpgbQBHKYONAUFVY1864-90-84 21:03:00 Test Item Value Reference Range Interpretation Comments Glucose Lvl (test code = Glucose Lvl) 97 70-99 [facility] CenterNyvkteeSILIWHMUMMDG5004-23-00 21:03:00 Test Item Value Reference Range Interpretation Comments eGFR (test code = eGFR) 79 [facility] HospitalPndzgksCVUFTFNUHM9680-85-05 21:03:00 Test Item Value Reference Range Interpretation Comments Hgb (test code = Hgb) 14.1 12.0-16.0 [facility] HospitalRivooxsVHQXHMPZYN2287-17-76 21:03:00 Test Item Value Reference Range Interpretation Comments MCV (test code = MCV) 89.6 80.0-98.0 [facility] HospitalBlxwvsgXGEQZFCIQK8890-27-26 21:03:00 Test Item Value Reference Range Interpretation Comments Hct (test code = Hct) 42.0 36.0-48.0 [facility] HospitalOoinrjaCYJHHTQSYL7850-31-81 21:03:00 Test Item Value Reference Range Interpretation Comments MPV (test code = MPV) 8.4 7.4-10.4 [facility] HospitalMoclhjrNVMBNVJPUP6326-02-98 21:03:00 Test Item Value Reference Range Interpretation Comments WBC (test code = WBC) 6.4 3.7-10.4 [facility] HospitalOnxmemvKEUOAATMHX5540-88-59 21:03:00 Test Item Value Reference Range Interpretation Comments RBC (test code = RBC) 4.68 4.20-5.40 [facility] HospitalGdvhsotVIJZQLMWNR3968-15-56 21:03:00 Test Item Value Reference Range Interpretation Comments RDW (test code = RDW) 12.9 11.5-14.5 [facility] HospitalEyfzgplBQBWXEDSJG0343-15-99 21:03:00 Test Item Value Reference Range Interpretation Comments MCH (test code = MCH) 30.1 pg 27.0-31.0 [facility] CenterOdepcxcBFZPOSICCW6436-84-20 21:03:00 Test Item Value Reference Range Interpretation Comments MCHC (test code = MCHC) 33.6 32.0-36.0 [facility] CenterDrvrdfdXDSXMMNAKC3802-21-02 21:03:00 Test Item Value Reference Range Interpretation Comments Platelet (test code = Platelet) 221 133-450 [facility] HospitalCARDIAC TSEHUQU8728-35-50 21:03:00 Test Item Value Reference Range Interpretation Comments Troponin-I (test code no gt See_Comment [Auto mated message] The = Troponin-I) system which g enerated this result transmit kuldip reference range : <=0.40. The reference r nilam was not used to interpr et this result as abiodun l/abnormal. [facility] RegionQwmbrhxWWRKTASKIPNG6508-44-82 21:03:00 Test Item Value Reference Range Interpretation Comments AGAP (test code = AGAP) 14.2 10.0-20.0 [facility] RegionTlrnmlvYNVLDFQPEESV5855-77-50 21:03:00 Test Item Value Reference Range Interpretation Comments Calcium Lvl (test code = Calcium Lvl) 11.2 8.5-10.5 [facility] RegionDwbptqhIOGCAHHYYVXX9297-86-41 21:03:00 Test Item Value Reference Range Interpretation Comments Potassium Lvl (test code = Potassium 4.2 3.5-5.1 Lvl) [facility] RegionUwqxyvoYQHKZDXKWMBL2276-54-50 21:03:00 Test Item Value Reference Range Interpretation Comments Sodium Lvl (test code = Sodium Lvl) 139 135-145 [facility] RegionQzlrkudXGNRAUOKXQBF3789-13-96 21:03:00 Test Item Value Reference Range Interpretation Comments CO2 (test code = CO2) 27 24-32 [facility] RegionTwmhaisODABMTRAYLAS1436-75-64 21:03:00 Test Item Value Reference Range Interpretation Comments Chloride Lvl (test code = Chloride Lvl) 102 95-109 [facility] RegionZuqywbpCPCRHFKYGBFW4870-00-01 21:03:00 Test Item Value Reference Range Interpretation Comments Creatinine Lvl (test code = Creatinine 0.90 0.50-1.40 Lvl) [facility] RegionLoprpzvVQNARXALHRSZ7678-19-63 21:03:00 Test Item Value Reference Range Interpretation Comments BUN (test code = BUN) 11 7-22 [facility] RegionRucxtluGUKDMAFYMHMW5183-80-00 21:03:00 Test Item Value Reference Range Interpretation Comments Glucose Lvl (test code = Glucose Lvl) 97 70-99 [facility] RegionQtrfsgiTVFGTIQFJDYH7094-22-19 21:03:00 Test Item Value Reference Range Interpretation Comments eGFR (test code = eGFR) 79 [facility] CenterCvnquilAHDAOWVPEM3797-82-14 21:03:00 Test Item Value Reference Range Interpretation Comments Hgb (test code = Hgb) 14.1 12.0-16.0 [facility] CenterOaxrnaqXYBPTJYMUG9765-19-78 21:03:00 Test Item Value Reference Range Interpretation Comments MCV (test code = MCV) 89.6 80.0-98.0 [facility] HospitalRxspbqgFIGXOBCPDJ7589-78-35 21:03:00 Test Item Value Reference Range Interpretation Comments Hct (test code = Hct) 42.0 36.0-48.0 [facility] HospitalZobaqhjBVNPPYSZRI7976-59-78 21:03:00 Test Item Value Reference Range Interpretation Comments MPV (test code = MPV) 8.4 7.4-10.4 [facility] HospitalJwfnqbmZDXPFPYJIZ8683-64-48 21:03:00 Test Item Value Reference Range Interpretation Comments WBC (test code = WBC) 6.4 3.7-10.4 [facility] HospitalPqqanmjTSMWWBYSLY8104-61-99 21:03:00 Test Item Value Reference Range Interpretation Comments RBC (test code = RBC) 4.68 4.20-5.40 [facility] HospitalLmmjuvwTJQVOELTPQ5493-51-65 21:03:00 Test Item Value Reference Range Interpretation Comments RDW (test code = RDW) 12.9 11.5-14.5 [facility] CenterHhuhprwTFVLVXLEJD1475-46-83 21:03:00 Test Item Value Reference Range Interpretation Comments MCH (test code = MCH) 30.1 pg 27.0-31.0 [facility] HospitalSlttisjPBFBCGUNNK2946-38-93 21:03:00 Test Item Value Reference Range Interpretation Comments MCHC (test code = MCHC) 33.6 32.0-36.0 [facility] HospitalEbobanoPZWOKFPWRV6411-52-23 21:03:00 Test Item Value Reference Range Interpretation Comments Platelet (test code = Platelet) 221 133-450 [facility] HospitalCARDIAC EQDIUDD2124-74-18 21:03:00 Test Item Value Reference Range Interpretation Comments Troponin-I (test code no gt See_Comment [Auto mated message] The = Troponin-I) system which g enerated this result transmit kuldip reference range : <=0.40. The reference r nilam was not used to interpr et this result as abiodun l/abnormal. [facility]nhgWCXWCJHVCXVZ2014-36-17 21:03:00 Test Item Value Reference Range Interpretation Comments AGAP (test code = AGAP) 14.2 10.0-20.0 [facility] RegionCmrqfbkOHPUBSZHSGOE3399-51-86 21:03:00 Test Item Value Reference Range Interpretation Comments Calcium Lvl (test code = Calcium Lvl) 11.2 8.5-10.5 [facility] RegionNossnvrOBMINIDWEPAH9038-48-22 21:03:00 Test Item Value Reference Range Interpretation Comments Potassium Lvl (test code = Potassium 4.2 3.5-5.1 Lvl) [facility] RegionQtryganSOQBMAVMCFFX9378-14-40 21:03:00 Test Item Value Reference Range Interpretation Comments Sodium Lvl (test code = Sodium Lvl) 139 135-145 [facility] RegionDqcvcssSUJBDFTBWJUC7216-24-91 21:03:00 Test Item Value Reference Range Interpretation Comments CO2 (test code = CO2) 27 24-32 [facility] RegionWeuhvoeZLVBNMMXWPFS3234-82-35 21:03:00 Test Item Value Reference Range Interpretation Comments Chloride Lvl (test code = Chloride Lvl) 102 95-109 [facility] RegionJrobmzsRSSWBGBVSRQS1022-32-43 21:03:00 Test Item Value Reference Range Interpretation Comments Creatinine Lvl (test code = Creatinine 0.90 0.50-1.40 Lvl) [facility] RegionHjedgqkHWUGPMIFOEVT8151-58-14 21:03:00 Test Item Value Reference Range Interpretation Comments BUN (test code = BUN) 11 7-22 [facility] RegionIninlcrPBTIEFFHRBVZ3893-75-52 21:03:00 Test Item Value Reference Range Interpretation Comments Glucose Lvl (test code = Glucose Lvl) 97 70-99 [facility] RegionAqwuzwoABDKHGOGPEBE0454-56-86 21:03:00 Test Item Value Reference Range Interpretation Comments eGFR (test code = eGFR) 79 [facility] CenterWmatzxoPYLALXJNUR8632-15-85 21:03:00 Test Item Value Reference Range Interpretation Comments Hgb (test code = Hgb) 14.1 12.0-16.0 [facility] CenterOpsmknsDKOJGUVVRC6779-92-13 21:03:00 Test Item Value Reference Range Interpretation Comments MCV (test code = MCV) 89.6 80.0-98.0 [facility] CenterFnynovwQNPFJQOKMF7389-35-11 21:03:00 Test Item Value Reference Range Interpretation Comments Hct (test code = Hct) 42.0 36.0-48.0 [facility] CenterMvyewkaARJGPYKLRG0570-11-20 21:03:00 Test Item Value Reference Range Interpretation Comments MPV (test code = MPV) 8.4 7.4-10.4 [facility] CenterVjhgmqqVHJDNSJQBZ9139-50-60 21:03:00 Test Item Value Reference Range Interpretation Comments WBC (test code = WBC) 6.4 3.7-10.4 [facility] HospitalIlzmheoAXBEGTZBEJ7416-19-33 21:03:00 Test Item Value Reference Range Interpretation Comments RBC (test code = RBC) 4.68 4.20-5.40 [facility] HospitalInwbnahEGHJTDHYDV9768-05-25 21:03:00 Test Item Value Reference Range Interpretation Comments RDW (test code = RDW) 12.9 11.5-14.5 [facility] CenterPxiytkaHNYVYCEZFM8677-90-00 21:03:00 Test Item Value Reference Range Interpretation Comments MCH (test code = MCH) 30.1 pg 27.0-31.0 [facility] HospitalOptostfQQKXNSHVSH6963-86-14 21:03:00 Test Item Value Reference Range Interpretation Comments MCHC (test code = MCHC) 33.6 32.0-36.0 [facility] HospitalFjvljgqEWHDYHTZKP2098-41-99 21:03:00 Test Item Value Reference Range Interpretation Comments Platelet (test code = Platelet) 221 133-450 [facility] HospitalCARD[facility]AC ETDMMZL0176-82-95 21:03:00 Test Item Value Reference Range Interpretation Comments Troponin-I (test code no gt See_Comment [Auto mated message] The = Troponin-I) system which g enerated this result transmit kuldip reference range : <=0.40. The reference r nilam was not used to interpr et this result as abiodun l/abnormal. [facility]XgwrepxZRLEASRLBWKQ2299-14-43 21:03:00 Test Item Value Reference Range Interpretation Comments AGAP (test code = AGAP) 14.2 10.0-20.0 [facility] RegionBhqvrjwNFFRPPCEQKXW9688-52-02 21:03:00 Test Item Value Reference Range Interpretation Comments Calcium Lvl (test code = Calcium Lvl) 11.2 8.5-10.5 [facility] RegionMkezfefMQVCCSUVCKCK6967-50-61 21:03:00 Test Item Value Reference Range Interpretation Comments Potassium Lvl (test code = Potassium 4.2 3.5-5.1 Lvl) [facility] RegionNglncrlCCNJIAHIUNEK9440-12-95 21:03:00 Test Item Value Reference Range Interpretation Comments Sodium Lvl (test code = Sodium Lvl) 139 135-145 [facility] RegionAfymxtiWBZSLFMUZBJQ3984-70-00 21:03:00 Test Item Value Reference Range Interpretation Comments CO2 (test code = CO2) 27 24-32 [facility] RegionYnrxjhmYQHPRODIASHW6429-01-00 21:03:00 Test Item Value Reference Range Interpretation Comments Chloride Lvl (test code = Chloride Lvl) 102 95-109 [facility] RegionHnfigqjKDYHHYONGUAT4781-23-97 21:03:00 Test Item Value Reference Range Interpretation Comments Creatinine Lvl (test code = Creatinine 0.90 0.50-1.40 Lvl) [facility] RegionMjgxvzvVJGSYLAFVWTA2527-82-80 21:03:00 Test Item Value Reference Range Interpretation Comments BUN (test code = BUN) 11 7-22 [facility] RegionPuzdqijUARDGRELQXIW3774-00-20 21:03:00 Test Item Value Reference Range Interpretation Comments Glucose Lvl (test code = Glucose Lvl) 97 70-99 [facility] RegionLgcbjpsTPGPKELEZVGW9737-90-24 21:03:00 Test Item Value Reference Range Interpretation Comments eGFR (test code = eGFR) 79 [facility] CenterLiiyfplZUYGZSBLTX7192-44-87 21:03:00 Test Item Value Reference Range Interpretation Comments Hgb (test code = Hgb) 14.1 12.0-16.0 [facility] CenterDxluzfyBHXLLBRXEO9561-40-96 21:03:00 Test Item Value Reference Range Interpretation Comments MCV (test code = MCV) 89.6 80.0-98.0 [facility] CenterWybaxubBHKTOKURDX9355-41-24 21:03:00 Test Item Value Reference Range Interpretation Comments Hct (test code = Hct) 42.0 36.0-48.0 [facility] CenterTyfjhazIZTGFTFBSV3478-56-25 21:03:00 Test Item Value Reference Range Interpretation Comments MPV (test code = MPV) 8.4 7.4-10.4 [facility] CenterPejzfqjFNIASHDLDR0884-32-15 21:03:00 Test Item Value Reference Range Interpretation Comments WBC (test code = WBC) 6.4 3.7-10.4 [facility] CenterKoptuygPBEUPDAFPD5356-60-48 21:03:00 Test Item Value Reference Range Interpretation Comments RBC (test code = RBC) 4.68 4.20-5.40 [facility] CenterUxmbuneMNQKHQLUZE3647-90-37 21:03:00 Test Item Value Reference Range Interpretation Comments RDW (test code = RDW) 12.9 11.5-14.5 [facility] CenterUmftgfkYACWNGQSRM1229-03-25 21:03:00 Test Item Value Reference Range Interpretation Comments MCH (test code = MCH) 30.1 pg 27.0-31.0 [facility] CenterFmydxiiLHBFTXLFZW4491-32-20 21:03:00 Test Item Value Reference Range Interpretation Comments MCHC (test code = MCHC) 33.6 32.0-36.0 [facility] HospitalLfewojfZEOKBEZNFQ6601-58-34 21:03:00 Test Item Value Reference Range Interpretation Comments Platelet (test code = Platelet) 221 133-450 [facility] HospitalCARD[facility]AC BPRFOJP6222-13-36 21:03:00 Test Item Value Reference Range Interpretation Comments Troponin-I (test code no gt See_Comment [Auto mated message] The = Troponin-I) system which g enerated this result transmit kuldip reference range : <=0.40. The reference r nilam was not used to interpr et this result as abiodun l/abnormal. [facility] RegionHpsgsxzJIBQOZJVUNPO3340-43-96 21:03:00 Test Item Value Reference Range Interpretation Comments AGAP (test code = AGAP) 14.2 10.0-20.0 [facility]ZzxcntfBHBYMSKRFKTT6946-45-42 21:03:00 Test Item Value Reference Range Interpretation Comments Calcium Lvl (test code = Calcium Lvl) 11.2 8.5-10.5 [facility] CenterVnstatqMXHHXXKJSGEW1136-73-44 21:03:00 Test Item Value Reference Range Interpretation Comments Potassium Lvl (test code = Potassium 4.2 3.5-5.1 Lvl) [facility] CenterIidztsvCRCVXFPXYFHI8285-67-21 21:03:00 Test Item Value Reference Range Interpretation Comments Sodium Lvl (test code = Sodium Lvl) 139 135-145 [facility] HospitalEdjqizePJRUDNFHDVCT9358-83-72 21:03:00 Test Item Value Reference Range Interpretation Comments CO2 (test code = CO2) 27 24-32 [facility] CenterCqqmgrqDAZISIAVDVBU2434-55-89 21:03:00 Test Item Value Reference Range Interpretation Comments Chloride Lvl (test code = Chloride Lvl) 102 95-109 [facility]VhqtnmyCOIYBHGETRGD9384-66-11 21:03:00 Test Item Value Reference Range Interpretation Comments Creatinine Lvl (test code = Creatinine 0.90 0.50-1.40 Lvl) [facility] RegionGokywzpWSRRPQKUWVSI3402-93-11 21:03:00 Test Item Value Reference Range Interpretation Comments BUN (test code = BUN) 11 7-22 [facility] RegionNbybahgVFQBIRGREOJL1586-24-80 21:03:00 Test Item Value Reference Range Interpretation Comments Glucose Lvl (test code = Glucose Lvl) 97 70-99 [facility] RegionCmhvftxBHFPNUEJTSTR0945-25-09 21:03:00 Test Item Value Reference Range Interpretation Comments eGFR (test code = eGFR) 79 [facility] CenterItelavhWVFAGFFNCY9558-93-94 21:03:00 Test Item Value Reference Range Interpretation Comments Hgb (test code = Hgb) 14.1 12.0-16.0 [facility] CenterRynbhdhXMCZXEDTKQ7362-98-16 21:03:00 Test Item Value Reference Range Interpretation Comments MCV (test code = MCV) 89.6 80.0-98.0 [facility] CenterKjrtetmIMYBPUHTTX8187-04-28 21:03:00 Test Item Value Reference Range Interpretation Comments Hct (test code = Hct) 42.0 36.0-48.0 [facility] CenterPwucpkvXZKIZGHSKN9192-50-32 21:03:00 Test Item Value Reference Range Interpretation Comments MPV (test code = MPV) 8.4 7.4-10.4 [facility] CenterAtwtkemONZDSJETWV8279-78-61 21:03:00 Test Item Value Reference Range Interpretation Comments WBC (test code = WBC) 6.4 3.7-10.4 [facility] CenterNfzikdfKDYXFPSLZS0175-26-62 21:03:00 Test Item Value Reference Range Interpretation Comments RBC (test code = RBC) 4.68 4.20-5.40 [facility] CenterWoasovqTWWKKKEXSE2668-19-39 21:03:00 Test Item Value Reference Range Interpretation Comments RDW (test code = RDW) 12.9 11.5-14.5 [facility] CenterUocovprWYDUULUTCW3027-00-31 21:03:00 Test Item Value Reference Range Interpretation Comments MCH (test code = MCH) 30.1 pg 27.0-31.0 [facility] CenterClmyoekDLOVXVBVAY0721-43-41 21:03:00 Test Item Value Reference Range Interpretation Comments MCHC (test code = MCHC) 33.6 32.0-36.0 [facility] CenterXvstcnsLRPIEVSNGT3867-54-36 21:03:00 Test Item Value Reference Range Interpretation Comments Platelet (test code = Platelet) 221 133-450 [place] [id number] 00:00:00 Test Item Value Reference Range Interpretation Comments RPR RESULT (test code = NON-REACTIVE 3501) RPR TITER (test code = 3500) NOT INDIC. TITER [id number] 00:00:00 Test Item Value Reference Range Interpretation Comments RPR RESULT (test code = NON-REACTIVE 3501) RPR TITER (test code = 3500) NOT INDIC. TITER HIV AB/AG COMBO RFLX [id number] 00:00:00 Test Item Value Reference Range Interpretation Comments HIV 1/2 4TH GEN, RFLX CONF (test NON-REACTIVE code = 3514) GC AND CHLAMYDIA, AMPLIFIED, [id number] 00:00:00 Test Item Value Reference Range Interpretation Comments GONORRHEA, TMA (test code = 02328) NEGATIVE CHLAMYDIA, TMA (test code = 14170) NEGATIVE ACUTE HEPATITIS [id number] 00:00:00 Test Item Value Reference Range Interpretation Comments HEPATITIS A IgM (test code = NON-REACTIVE 41632) HEPATITIS B CORE IgM (test code NON-REACTIVE = 4644) HEPATITIS B SURF AG (test code = NON-REACTIVE 2739) HEPATITIS C ANTIBODY (test code NON-REACTIVE = 4675) INTERPRETATION HEPATITIS A: (NOTE) (test code = 2552) INTERPRETATION HEPATITIS B: (NOTE) (test code = 59664) INTERPRETATION HEPATITIS C: (NOTE) (test code = 96082) [id number] 00:00:00 Test Item Value Reference Range Interpretation Comments RPR RESULT (test code = NON-REACTIVE 3501) RPR TITER (test code = 3500) NOT INDIC. TITER [id number] 00:00:00 Test Item Value Reference Range Interpretation Comments RPR RESULT (test code = NON-REACTIVE 3501) RPR TITER (test code = 3500) NOT INDIC. TITER [id number] 00:00:00 Test Item Value Reference Range Interpretation Comments RPR RESULT (test code = NON-REACTIVE 3501) RPR TITER (test code = 3500) NOT INDIC. TITER HIV AB/AG COMBO RFLX [id number] 00:00:00 Test Item Value Reference Range Interpretation Comments HIV 1/2 4TH GEN, RFLX CONF (test NON-REACTIVE code = 3514) [id number] 00:00:00 Test Item Value Reference Range Interpretation Comments RPR RESULT (test code = NON-REACTIVE 3501) RPR TITER (test code = 3500) NOT INDIC. TITER GC AND CHLAMYDIA, AMPLIFIED, [id number] 00:00:00 Test Item Value Reference Range Interpretation Comments GONORRHEA, TMA (test code = 71139) NEGATIVE CHLAMYDIA, TMA (test code = 64758) NEGATIVE ACUTE HEPATITIS [id number] 00:00:00 Test Item Value Reference Range Interpretation Comments HEPATITIS A IgM (test code = NON-REACTIVE 64798) HEPATITIS B CORE IgM (test code NON-REACTIVE = 4644) HEPATITIS B SURF AG (test code = NON-REACTIVE 2739) HEPATITIS C ANTIBODY (test code NON-REACTIVE = 4675) INTERPRETATION HEPATITIS A: (NOTE) (test code = 2552) INTERPRETATION HEPATITIS B: (NOTE) (test code = 79975) INTERPRETATION HEPATITIS C: (NOTE) (test code = 93486) HIV AB/AG COMBO RFLX [id number] 00:00:00 Test Item Value Reference Range Interpretation Comments HIV 1/2 4TH GEN, RFLX CONF (test NON-REACTIVE code = 3514) [id number] 00:00:00 Test Item Value Reference Range Interpretation Comments RPR RESULT (test code = NON-REACTIVE 3501) RPR TITER (test code = 3500) NOT INDIC. TITER [id number] 00:00:00 Test Item Value Reference Range Interpretation Comments RPR RESULT (test code = NON-REACTIVE 3501) RPR TITER (test code = 3500) NOT INDIC. TITER [id number] 00:00:00 Test Item Value Reference Range Interpretation Comments RPR RESULT (test code = NON-REACTIVE 3501) RPR TITER (test code = 3500) NOT INDIC. TITER HIV AB/AG COMBO RFLX [id number] 00:00:00 Test Item Value Reference Range Interpretation Comments HIV 1/2 4TH GEN, RFLX CONF (test NON-REACTIVE code = 3514) GC AND CHLAMYDIA, AMPLIFIED, [id number] 00:00:00 Test Item Value Reference Range Interpretation Comments GONORRHEA, TMA (test code = 32578) NEGATIVE CHLAMYDIA, TMA (test code = 65385) NEGATIVE HIV AB/AG COMBO RFLX [id number] 00:00:00 Test Item Value Reference Range Interpretation Comments HIV 1/2 4TH GEN, RFLX CONF (test NON-REACTIVE code = 3514) GC AND CHLAMYDIA, AMPLIFIED, [id number] 00:00:00 Test Item Value Reference Range Interpretation Comments GONORRHEA, TMA (test code = 64673) NEGATIVE CHLAMYDIA, TMA (test code = 80218) NEGATIVE GC AND CHLAMYDIA, AMPLIFIED, [id number] 00:00:00 Test Item Value Reference Range Interpretation Comments GONORRHEA, TMA (test code = 84681) NEGATIVE CHLAMYDIA, TMA (test code = 35180) NEGATIVE ACUTE HEPATITIS [id number] 00:00:00 Test Item Value Reference Range Interpretation Comments HEPATITIS A IgM (test code = NON-REACTIVE 46359) HEPATITIS B CORE IgM (test code NON-REACTIVE = 4644) HEPATITIS B SURF AG (test code = NON-REACTIVE 2739) HEPATITIS C ANTIBODY (test code NON-REACTIVE = 4675) INTERPRETATION HEPATITIS A: (NOTE) (test code = 2552) INTERPRETATION HEPATITIS B: (NOTE) (test code = 55210) INTERPRETATION HEPATITIS C: (NOTE) (test code = 37258) ACUTE HEPATITIS [id number] 00:00:00 Test Item Value Reference Range Interpretation Comments HEPATITIS A IgM (test code = NON-REACTIVE 24866) HEPATITIS B CORE IgM (test code NON-REACTIVE = 4644) HEPATITIS B SURF AG (test code = NON-REACTIVE 2739) HEPATITIS C ANTIBODY (test code NON-REACTIVE = 4675) INTERPRETATION HEPATITIS A: (NOTE) (test code = 2552) INTERPRETATION HEPATITIS B: (NOTE) (test code = 09649) INTERPRETATION HEPATITIS C: (NOTE) (test code = 70839) ACUTE HEPATITIS [id number] 00:00:00 Test Item Value Reference Range Interpretation Comments HEPATITIS A IgM (test code = NON-REACTIVE 63882) HEPATITIS B CORE IgM (test code NON-REACTIVE = 4644) HEPATITIS B SURF AG (test code = NON-REACTIVE 2739) HEPATITIS C ANTIBODY (test code NON-REACTIVE = 4675) INTERPRETATION HEPATITIS A: (NOTE) (test code = 2552) INTERPRETATION HEPATITIS B: (NOTE) (test code = 40023) INTERPRETATION HEPATITIS C: (NOTE) (test code = 65274) [id number] 00:00:00 Test Item Value Reference Range Interpretation Comments RPR RESULT (test code = NON-REACTIVE 3501) RPR TITER (test code = 3500) NOT INDIC. TITER [id number] 00:00:00 Test Item Value Reference Range Interpretation Comments RPR RESULT (test code = NON-REACTIVE 3501) RPR TITER (test code = 3500) NOT INDIC. TITER [id number] 00:00:00 Test Item Value Reference Range Interpretation Comments RPR RESULT (test code = NON-REACTIVE 3501) RPR TITER (test code = 3500) NOT INDIC. TITER HIV AB/AG COMBO RFLX [id number] 00:00:00 Test Item Value Reference Range Interpretation Comments HIV 1/2 4TH GEN, RFLX CONF (test NON-REACTIVE code = 3514) HIV AB/AG COMBO RFLX [id number] 00:00:00 Test Item Value Reference Range Interpretation Comments HIV 1/2 4TH GEN, RFLX CONF (test NON-REACTIVE code = 3514) GC AND CHLAMYDIA, AMPLIFIED, [id number] 00:00:00 Test Item Value Reference Range Interpretation Comments GONORRHEA, TMA (test code = 09740) NEGATIVE CHLAMYDIA, TMA (test code = 65602) NEGATIVE GC AND CHLAMYDIA, AMPLIFIED, [id number] 00:00:00 Test Item Value Reference Range Interpretation Comments GONORRHEA, TMA (test code = 15902) NEGATIVE CHLAMYDIA, TMA (test code = 26763) NEGATIVE ACUTE HEPATITIS [id number] 00:00:00 Test Item Value Reference Range Interpretation Comments HEPATITIS A IgM (test code = NON-REACTIVE 92096) HEPATITIS B CORE IgM (test code NON-REACTIVE = 4644) HEPATITIS B SURF AG (test code = NON-REACTIVE 2739) HEPATITIS C ANTIBODY (test code NON-REACTIVE = 4675) INTERPRETATION HEPATITIS A: (NOTE) (test code = 2552) INTERPRETATION HEPATITIS B: (NOTE) (test code = 08484) INTERPRETATION HEPATITIS C: (NOTE) (test code = 32893) ACUTE HEPATITIS [id number] 00:00:00 Test Item Value Reference Range Interpretation Comments HEPATITIS A IgM (test code = NON-REACTIVE 54742) HEPATITIS B CORE IgM (test code NON-REACTIVE = 4644) HEPATITIS B SURF AG (test code = NON-REACTIVE 2739) HEPATITIS C ANTIBODY (test code NON-REACTIVE = 4675) INTERPRETATION HEPATITIS A: (NOTE) (test code = 2552) INTERPRETATION HEPATITIS B: (NOTE) (test code = 71704) INTERPRETATION HEPATITIS C: (NOTE) (test code = 42042) COMPREHENSIVE METABOLIC [id number] 00:00:00 Test Item Value Reference Range Interpretation Comments GLUCOSE (test code = 2217) 120 MG/DL BUN (test code = 2208) 9 MG/DL CREATININE (test code = 2214) 0.72 MG/DL eGFR AMER. (test code 120 ML/MIN/1.73 = 26654) eGFR NON- AMER. (test 103 ML/MIN/1.73 code = 66810) CALC BUN/CREAT (test code = 13 RATIO [...] CALC GLOBULIN (test code = 3.9 G/DL 0) CALC A/G RATIO (test code = 1.1 RATIO 2233) BILIRUBIN, TOTAL (test code = 0.3 MG/DL 2206) ALKALINE PHOSPHATASE (test 93 U/L code = 2204) AST (test code = 2218) 20 U/L ALT (test code = 2219) 25 U/L CBC W/AUTO [id number] 00:00:00 Test Item Value Reference Range Interpretation [...] code = 1015) 215 K/UL CBC W/AUTO [id number] 00:00:00 Test Item Value Reference Range Interpretation [...] code = 1015) 215 K/UL COMPREHENSIVE METABOLIC [id number] 00:00:00 Test Item Value Reference Range Interpretation Comments GLUCOSE (test code = 2217) 120 MG/DL BUN (test code = 2208) 9 MG/DL CREATININE (test code = 2214) 0.72 MG/DL eGFR AMER. (test code 120 ML/MIN/1.73 = 57998) eGFR NON- AMER. (test 103 ML/MIN/1.73 code = 95536) CALC BUN/CREAT (test code = 13 RATIO [...] A/G RATIO (test code = 1.1 RATIO 223) BILIRUBIN, TOTAL (test code = 0.3 MG/DL 2207) ALKALINE PHOSPHATASE (test 93 U/L code = 2204) AST (test code = 2218) 20 U/L ALT (test code = 2219) 25 U/L COMPREHENSIVE METABOLIC [id number] 00:00:00 Test Item Value Reference Range Interpretation Comments GLUCOSE (test code = 2217) 120 MG/DL BUN (test code = 2208) 9 MG/DL CREATININE (test code = 2214) 0.72 MG/DL eGFR AMER. (test code 120 ML/MIN/1.73 = 92178) eGFR NON- AMER. (test 103 ML/MIN/1.73 code = 19064) CALC BUN/CREAT (test code = 13 RATIO [...] code = 2219) 25 U/L CBC W/AUTO [id number] 00:00:00 Test Item Value Reference Range Interpretation [...] code = 1015) 215 K/UL CBC W/AUTO [id number] 00:00:00 Test Item Value Reference Range Interpretation [...] code = 1015) 215 K/UL CBC W/AUTO [id number] 00:00:00 Test Item Value Reference Range Interpretation [...] code = 1015) 215 K/UL CBC W/AUTO [id number] 00:00:00 Test Item Value Reference Range Interpretation [...] code = 1015) 215 K/UL COMPREHENSIVE METABOLIC [id number] 00:00:00 Test Item Value Reference Range Interpretation Comments GLUCOSE (test code = 2217) 120 MG/DL BUN (test code = 2208) 9 MG/DL CREATININE (test code = 2214) 0.72 MG/DL eGFR AMER. (test code 120 ML/MIN/1.73 = 08825) eGFR NON- AMER. (test 103 ML/MIN/1.73 code = 29671) CALC BUN/CREAT (test code = 13 RATIO [...] = 0.3 MG/DL 220) ALKALINE PHOSPHATASE (test 93 U/L code = 2204) AST (test code = 2218) 20 U/L ALT (test code = 2219) 25 U/L COMPREHENSIVE METABOLIC [id number] 00:00:00 Test Item Value Reference Range Interpretation Comments GLUCOSE (test code = 2217) 120 MG/DL BUN (test code = 2208) 9 MG/DL CREATININE (test code = 2214) 0.72 MG/DL eGFR AMER. (test code 120 ML/MIN/1.73 = 04625) eGFR NON- AMER. (test 103 ML/MIN/1.73 code = 83985) CALC BUN/CREAT (test code = 13 RATIO [...] ALKALINE PHOSPHATASE (test 93 U/L code = 220) AST (test code = 2218) 20 U/L ALT (test code = 2219) 25 U/L CBC W/AUTO [id number] 00:00:00 Test Item Value Reference Range Interpretation [...] code = 1015) 215 K/UL CBC W/AUTO [id number] 00:00:00 Test Item Value Reference Range Interpretation [...] code = 1015) 215 K/UL CBC W/AUTO [id number] 00:00:00 Test Item Value Reference Range Interpretation [...] code = 1015) 215 K/UL COMPREHENSIVE METABOLIC [id number] 00:00:00 Test Item Value Reference Range Interpretation Comments GLUCOSE (test code = 2217) 120 MG/DL BUN (test code = 2208) 9 MG/DL CREATININE (test code = 2214) 0.72 MG/DL eGFR AMER. (test code 120 ML/MIN/1.73 = 54452) eGFR NON- AMER. (test 103 ML/MIN/1.73 code = 42089) CALC BUN/CREAT (test code = 13 RATIO [...] code = 2219) 25 U/L COMPREHENSIVE METABOLIC [id number] 00:00:00 Test Item Value Reference Range Interpretation Comments GLUCOSE (test code = 2217) 120 MG/DL BUN (test code = 2208) 9 MG/DL CREATININE (test code = 2214) 0.72 MG/DL eGFR AMER. (test code 120 ML/MIN/1.73 = 51602) eGFR NON- AMER. (test 103 ML/MIN/1.73 code = 61548) CALC BUN/CREAT (test code = 13 RATIO [...] code = 2219) 25 U/L CBC W/AUTO [id number] 00:00:00 Test Item Value Reference Range Interpretation [...] code = 1015) 215 K/UL CBC W/AUTO [id number] 00:00:00 Test Item Value Reference Range Interpretation [...] code = 1015) 215 K/UL CBC W/AUTO [id number] 00:00:00 Test Item Value Reference Range Interpretation [...] code = 1015) 215 K/UL COMPREHENSIVE METABOLIC [id number] 00:00:00 Test Item Value Reference Range Interpretation Comments GLUCOSE (test code = 2217) 97 MG/DL BUN (test code = 2208) 5 MG/DL CREATININE (test code = 2214) 0.79 MG/DL eGFR AMER. (test code 107 ML/MIN/1.73 = 81367) eGFR NON- AMER. (test 92 ML/MIN/1.73 code = 01885) CALC BUN/CREAT (test code = 6 RATIO [...] CALC GLOBULIN (test code = 3.7 G/DL 2239) CALC A/G RATIO (test code = 1.2 RATIO 2234) BILIRUBIN, TOTAL (test code = 0.4 MG/DL 2206) ALKALINE PHOSPHATASE (test 87 U/L code = 2204) AST (test code = 2218) 13 U/L ALT (test code = 2219) 14 U/L COMPREHENSIVE METABOLIC [id number] 00:00:00 Test Item Value Reference Range Interpretation Comments GLUCOSE (test code = 2217) 97 MG/DL BUN (test code = 2208) 5 MG/DL CREATININE (test code = 2214) 0.79 MG/DL eGFR AMER. (test code 107 ML/MIN/1.73 = 65676) eGFR NON- AMER. (test 92 ML/MIN/1.73 code = 78888) CALC BUN/CREAT (test code = 6 RATIO [...] BILIRUBIN, TOTAL (test code = 0.4 MG/DL 220) ALKALINE PHOSPHATASE (test 87 U/L code = 2204) AST (test code = 2218) 13 U/L ALT (test code = 2219) 14 U/L COMPREHENSIVE METABOLIC [id number] 00:00:00 Test Item Value Reference Range Interpretation Comments GLUCOSE (test code = 2217) 97 MG/DL BUN (test code = 2208) 5 MG/DL CREATININE (test code = 2214) 0.79 MG/DL eGFR AMER. (test code 107 ML/MIN/1.73 = 17601) eGFR NON- AMER. (test 92 ML/MIN/1.73 code = 39448) CALC BUN/CREAT (test code = 6 RATIO [...] code = 2219) 14 U/L COMPREHENSIVE METABOLIC [id number] 00:00:00 Test Item Value Reference Range Interpretation Comments GLUCOSE (test code = 2217) 97 MG/DL BUN (test code = 2208) 5 MG/DL CREATININE (test code = 2214) 0.79 MG/DL eGFR AMER. (test code 107 ML/MIN/1.73 = 31477) eGFR NON- AMER. (test 92 ML/MIN/1.73 code = 81983) CALC BUN/CREAT (test code = 6 RATIO 2235) SODIUM (test code = 2231) 138 MEQ/L POTASSIUM (test code = 2228) 4.1 MEQ/L CHLORIDE (test code = 2215) 96 MEQ/L CARBON DIOXIDE (test code = 29 MEQ/L 2206) CALCIUM (test code = 2209) 11.9 MG/DL PROTEIN, TOTAL (test code = 8.3 G/DL 222) ALBUMIN (test code = 2201) 4.6 G/DL CALC GLOBULIN (test code = 3.7 G/DL 2240) CALC A/G RATIO (test code = 1.2 RATIO 2234) BILIRUBIN, TOTAL (test code = 0.4 MG/DL 2206) ALKALINE PHOSPHATASE (test 87 U/L code = 2204) AST (test code = 2218) 13 U/L ALT (test code = 2219) 14 U/L COMPREHENSIVE METABOLIC [id number] 00:00:00 Test Item Value Reference Range Interpretation Comments GLUCOSE (test code = 2217) 97 MG/DL BUN (test code = 8) 5 MG/DL CREATININE (test code = 2214) 0.79 MG/DL eGFR AMER. (test code 107 ML/MIN/1.73 = 14609) eGFR NON- AMER. (test 92 ML/MIN/1.73 code = 02323) CALC BUN/CREAT (test code = 6 RATIO [...] code = 2219) 14 U/L COMPREHENSIVE METABOLIC [id number] 00:00:00 Test Item Value Reference Range Interpretation Comments GLUCOSE (test code = 2217) 97 MG/DL BUN (test code = 2208) 5 MG/DL CREATININE (test code = 2214) 0.79 MG/DL eGFR AMER. (test code 107 ML/MIN/1.73 = 41203) eGFR NON- AMER. (test 92 ML/MIN/1.73 code = 32593) CALC BUN/CREAT (test code = 6 RATIO [...] code = 2219) 14 U/L COMPREHENSIVE METABOLIC [id number] 00:00:00 Test Item Value Reference Range Interpretation Comments GLUCOSE (test code = 2217) 97 MG/DL BUN (test code = 2208) 5 MG/DL CREATININE (test code = 2214) 0.79 MG/DL eGFR AMER. (test code 107 ML/MIN/1.73 = 83912) eGFR NON- AMER. (test 92 ML/MIN/1.73 code = 37992) CALC BUN/CREAT (test code = 6 RATIO [...] code = 2219) 14 U/L URINE AND [id number] 05:22:00 Test Item Value Reference Range Interpretation Comments UA Leuk Est (test Negative (11/17/17 12:22 code = UA Leuk Est) AM) [facility] AND [id number] 05:22:00 Test Item Value Reference Range Interpretation Comments UA Bacteria (test code = UA Occasional /HPF Bacteria) [facility] [id number] 05:22:00 Test Item Value Reference Range Interpretation Comments UA WBC (test code = 3 See_Comment [Automa kuldip message] The UA WBC) system which ge nerated this result transmit kuldip reference range : <=5. The reference range was not used to interpr et this result as abiodun l/abnormal. [facility] [id number] 05:22:00 Test Item Value Reference Range Interpretation Comments UA Mucus (test code = UA Mucus) Few /LPF [facility] AND [id number] 05:22:00 Test Item Value Reference Range Interpretation Comments UA Sq Epi (test code = UA Sq Occasional /LPF Epi) [facility] AND [id number] 05:22:00 Test Item Value Reference Range Interpretation Comments UA Nitrite (test code Negative (11/17/17 12:22 = UA Nitrite) AM) [facility] AND [id number] 05:22:00 Test Item Value Reference Range Interpretation Comments UA CaOx Judy (test code = UA Moderate /HPF CaOx Judy) [facility] AND [id number] 05:22:00 Test Item Value Reference Range Interpretation Comments UA Urobilinogen (test code = UA 4.0 0.1-1.0 Urobilinogen) [facility] [id number] 05:22:00 Test Item Value Reference Range Interpretation Comments UA Ketones (test code = UA Negative mg/dL Ketones) [facility] AND [id number] 05:22:00 Test Item Value Reference Range Interpretation Comments UA Blood (test code = Negative (11/17/17 12:22 UA Blood) AM) [facility] AND [id number] 05:22:00 Test Item Value Reference Range Interpretation Comments UA Bili (test code = Negative *NA*(11/17/17 UA Bili) 12:22 AM) [facility] AND [id number] 05:22:00 Test Item Value Reference Range Interpretation Comments UA Color (test code = Yellow *NA*(11/17/17 UA Color) 12:22 AM) [facility] AND [id number] 05:22:00 Test Item Value Reference Range Interpretation Comments UA Protein (test code = UA Negative mg/dL Protein) [facility] AND [id number] 05:22:00 Test Item Value Reference Range Interpretation Comments UA pH (test code = UA pH) 7.0 1 5.0-8.0 [facility] AND [id number] 05:22:00 Test Item Value Reference Range Interpretation Comments UA Spec Grav (test code = UA Spec 1.011 1 Grav) [facility] AND [id number] 05:22:00 Test Item Value Reference Range Interpretation Comments UA Turbidity (test code Slight *ABN*(11/17/17 = UA Turbidity) 12:22 AM) [facility] AND [id number] 05:22:00 Test Item Value Reference Range Interpretation Comments UA Glucose (test code = UA Negative mg/dL Glucose) [facility] AND [id number] 05:22:00 Test Item Value Reference Range Interpretation Comments UA Leuk Est (test Negative (11/17/17 12:22 code = UA Leuk Est) AM) [facility] AND [id number] 05:22:00 Test Item Value Reference Range Interpretation Comments UA Bacteria (test code = UA Occasional /HPF Bacteria) [facility] AND [id number] 05:22:00 Test Item Value Reference Range Interpretation Comments UA WBC (test code = 3 See_Comment [Automa kuldip message] The UA WBC) system which ge nerated this result transmit kuldip reference range : <=5. The reference range was not used to interpr et this result as abiodun l/abnormal. [facility] AND [id number] 05:22:00 Test Item Value Reference Range Interpretation Comments UA Mucus (test code = UA Mucus) Few /LPF [facility] AND [id number] 05:22:00 Test Item Value Reference Range Interpretation Comments UA Sq Epi (test code = UA Sq Occasional /LPF Epi) [facility] AND [id number] 05:22:00 Test Item Value Reference Range Interpretation Comments UA Nitrite (test code Negative (11/17/17 12:22 = UA Nitrite) AM) [facility] AND [id number] 05:22:00 Test Item Value Reference Range Interpretation Comments UA Leuk Est (test Negative (11/17/17 12:22 code = UA Leuk Est) AM) [facility] AND [id number] 05:22:00 Test Item Value Reference Range Interpretation Comments UA Bacteria (test code = UA Occasional /HPF Bacteria) [facility] AND [id number] 05:22:00 Test Item Value Reference Range Interpretation Comments UA WBC (test code = 3 See_Comment [Automa kuldip message] The UA WBC) system which ge nerated this result transmit kuldip reference range : <=5. The reference range was not used to interpr et this result as abiodun l/abnormal. [facility] AND [id number] 05:22:00 Test Item Value Reference Range Interpretation Comments UA Mucus (test code = UA Mucus) Few /LPF [facility] AND [id number] 05:22:00 Test Item Value Reference Range Interpretation Comments UA Sq Epi (test code = UA Sq Occasional /LPF Epi) [facility] AND [id number] 05:22:00 Test Item Value Reference Range Interpretation Comments UA Nitrite (test code Negative (11/17/17 12:22 = UA Nitrite) AM) [facility] AND [id number] 05:22:00 Test Item Value Reference Range Interpretation Comments UA CaOx Judy (test code = UA Moderate /HPF CaOx Judy) [facility] AND [id number] 05:22:00 Test Item Value Reference Range Interpretation Comments UA Urobilinogen (test code = UA 4.0 0.1-1.0 Urobilinogen) [facility] AND [id number] 05:22:00 Test Item Value Reference Range Interpretation Comments UA Ketones (test code = UA Negative mg/dL Ketones) [facility] AND [id number] 05:22:00 Test Item Value Reference Range Interpretation Comments UA CaOx Judy (test code = UA Moderate /HPF CaOx Judy) [facility] AND [id number] 05:22:00 Test Item Value Reference Range Interpretation Comments UA Blood (test code = Negative (11/17/17 12:22 UA Blood) AM) [facility] AND [id number] 05:22:00 Test Item Value Reference Range Interpretation Comments UA Bili (test code = Negative *NA*(11/17/17 UA Bili) 12:22 AM) [facility] AND [id number] 05:22:00 Test Item Value Reference Range Interpretation Comments UA Color (test code = Yellow *NA*(11/17/17 UA Color) 12:22 AM) [facility] AND [id number] 05:22:00 Test Item Value Reference Range Interpretation Comments UA Protein (test code = UA Negative mg/dL Protein) [facility] AND [id number] 05:22:00 Test Item Value Reference Range Interpretation Comments UA pH (test code = UA pH) 7.0 1 5.0-8.0 [facility] AND [id number] 05:22:00 Test Item Value Reference Range Interpretation Comments UA Spec Grav (test code = UA Spec 1.011 1 Grav) [facility] AND [id number] 05:22:00 Test Item Value Reference Range Interpretation Comments UA Turbidity (test code Slight *ABN*(11/17/17 = UA Turbidity) 12:22 AM) [facility] AND [id number] 05:22:00 Test Item Value Reference Range Interpretation Comments UA Glucose (test code = UA Negative mg/dL Glucose) [facility] AND [id number] 05:22:00 Test Item Value Reference Range Interpretation Comments UA Urobilinogen (test code = UA 4.0 0.1-1.0 Urobilinogen) [facility] AND [id number] 05:22:00 Test Item Value Reference Range Interpretation Comments UA Ketones (test code = UA Negative mg/dL Ketones) [facility] AND [id number] 05:22:00 Test Item Value Reference Range Interpretation Comments UA Blood (test code = Negative (11/17/17 12:22 UA Blood) AM) [facility] AND [id number] 05:22:00 Test Item Value Reference Range Interpretation Comments UA Bili (test code = Negative *NA*(11/17/17 UA Bili) 12:22 AM) [facility] AND [id number] 05:22:00 Test Item Value Reference Range Interpretation Comments UA Color (test code = Yellow *NA*(11/17/17 UA Color) 12:22 AM) [facility] AND [id number] 05:22:00 Test Item Value Reference Range Interpretation Comments UA Protein (test code = UA Negative mg/dL Protein) [facility] AND [id number] 05:22:00 Test Item Value Reference Range Interpretation Comments UA pH (test code = UA pH) 7.0 1 5.0-8.0 [facility] AND [id number] 05:22:00 Test Item Value Reference Range Interpretation Comments UA Spec Grav (test code = UA Spec 1.011 1 Grav) [facility] AND [id number] 05:22:00 Test Item Value Reference Range Interpretation Comments UA Turbidity (test code Slight *ABN*(11/17/17 = UA Turbidity) 12:22 AM) [facility] AND [id number] 05:22:00 Test Item Value Reference Range Interpretation Comments UA Glucose (test code = UA Negative mg/dL Glucose) [facility] AND [id number] 05:22:00 Test Item Value Reference Range Interpretation Comments UA Leuk Est (test Negative (11/17/17 12:22 code = UA Leuk Est) AM) [facility] AND [id number] 05:22:00 Test Item Value Reference Range Interpretation Comments UA Bacteria (test code = UA Occasional /HPF Bacteria) [facility] AND [id number] 05:22:00 Test Item Value Reference Range Interpretation Comments UA WBC (test code = 3 See_Comment [Automa kuldip message] The UA WBC) system which ge nerated this result transmit kuldip reference range : <=5. The reference range was not used to interpr et this result as abiodun l/abnormal. [facility] AND [id number] 05:22:00 Test Item Value Reference Range Interpretation Comments UA Mucus (test code = UA Mucus) Few /LPF [facility] AND [id number] 05:22:00 Test Item Value Reference Range Interpretation Comments UA Sq Epi (test code = UA Sq Occasional /LPF Epi) [facility] AND [id number] 05:22:00 Test Item Value Reference Range Interpretation Comments UA Nitrite (test code Negative (11/17/17 12:22 = UA Nitrite) AM) [facility] AND [id number] 05:22:00 Test Item Value Reference Range Interpretation Comments UA CaOx Judy (test code = UA Moderate /HPF CaOx Judy) [facility] AND [id number] 05:22:00 Test Item Value Reference Range Interpretation Comments UA Urobilinogen (test code = UA 4.0 0.1-1.0 Urobilinogen) [facility] AND [id number] 05:22:00 Test Item Value Reference Range Interpretation Comments UA Ketones (test code = UA Negative mg/dL Ketones) [facility] AND [id number] 05:22:00 Test Item Value Reference Range Interpretation Comments UA Blood (test code = Negative (11/17/17 12:22 UA Blood) AM) [facility] AND [id number] 05:22:00 Test Item Value Reference Range Interpretation Comments UA Bili (test code = Negative *NA*(11/17/17 UA Bili) 12:22 AM) [facility] AND [id number] 05:22:00 Test Item Value Reference Range Interpretation Comments UA Color (test code = Yellow *NA*(11/17/17 UA Color) 12:22 AM) [facility] AND [id number] 05:22:00 Test Item Value Reference Range Interpretation Comments UA Protein (test code = UA Negative mg/dL Protein) [facility] AND [id number] 05:22:00 Test Item Value Reference Range Interpretation Comments UA pH (test code = UA pH) 7.0 1 5.0-8.0 [facility] AND [id number] 05:22:00 Test Item Value Reference Range Interpretation Comments UA Spec Grav (test code = UA Spec 1.011 1 Grav) [facility] AND [id number] 05:22:00 Test Item Value Reference Range Interpretation Comments UA Turbidity (test code Slight *ABN*(11/17/17 = UA Turbidity) 12:22 AM) [facility] AND [id number] 05:22:00 Test Item Value Reference Range Interpretation Comments UA Glucose (test code = UA Negative mg/dL Glucose) [facility] AND [id number] 05:22:00 Test Item Value Reference Range Interpretation Comments UA Leuk Est (test Negative (11/17/17 12:22 code = UA Leuk Est) AM) [facility] AND [id number] 05:22:00 Test Item Value Reference Range Interpretation Comments UA Bacteria (test code = UA Occasional /HPF Bacteria) [facility] AND [id number] 05:22:00 Test Item Value Reference Range Interpretation Comments UA WBC (test code = 3 See_Comment [Automa kuldip message] The UA WBC) system which ge nerated this result transmit kuldip reference range : <=5. The reference range was not used to interpr et this result as abiodun l/abnormal. [facility] AND [id number] 05:22:00 Test Item Value Reference Range Interpretation Comments UA Mucus (test code = UA Mucus) Few /LPF [facility] AND [id number] 05:22:00 Test Item Value Reference Range Interpretation Comments UA Sq Epi (test code = UA Sq Occasional /LPF Epi) [facility] AND [id number] 05:22:00 Test Item Value Reference Range Interpretation Comments UA Nitrite (test code Negative (11/17/17 12:22 = UA Nitrite) AM) [facility] AND [id number] 05:22:00 Test Item Value Reference Range Interpretation Comments UA CaOx Judy (test code = UA Moderate /HPF CaOx Judy) [facility] AND [id number] 05:22:00 Test Item Value Reference Range Interpretation Comments UA Urobilinogen (test code = UA 4.0 0.1-1.0 Urobilinogen) [facility] AND [id number] 05:22:00 Test Item Value Reference Range Interpretation Comments UA Ketones (test code = UA Negative mg/dL Ketones) [facility] AND [id number] 05:22:00 Test Item Value Reference Range Interpretation Comments UA Blood (test code = Negative (11/17/17 12:22 UA Blood) AM) [facility] AND [id number] 05:22:00 Test Item Value Reference Range Interpretation Comments UA Bili (test code = Negative *NA*(11/17/17 UA Bili) 12:22 AM) [facility] AND [id number] 05:22:00 Test Item Value Reference Range Interpretation Comments UA Color (test code = Yellow *NA*(11/17/17 UA Color) 12:22 AM) [facility] AND [id number] 05:22:00 Test Item Value Reference Range Interpretation Comments UA Protein (test code = UA Negative mg/dL Protein) [facility] AND [id number] 05:22:00 Test Item Value Reference Range Interpretation Comments UA pH (test code = UA pH) 7.0 1 5.0-8.0 [facility] AND [id number] 05:22:00 Test Item Value Reference Range Interpretation Comments UA Spec Grav (test code = UA Spec 1.011 1 Grav) [facility] AND [id number] 05:22:00 Test Item Value Reference Range Interpretation Comments UA Turbidity (test code Slight *ABN*(11/17/17 = UA Turbidity) 12:22 AM) [facility] AND [id number] 05:22:00 Test Item Value Reference Range Interpretation Comments UA Glucose (test code = UA Negative mg/dL Glucose) [facility] AND [id number] 05:22:00 Test Item Value Reference Range Interpretation Comments UA Leuk Est (test Negative (11/17/17 12:22 code = UA Leuk Est) AM) [facility] AND [id number] 05:22:00 Test Item Value Reference Range Interpretation Comments UA Bacteria (test code = UA Occasional /HPF Bacteria) [facility] AND [id number] 05:22:00 Test Item Value Reference Range Interpretation Comments UA WBC (test code = 3 See_Comment [Automa kuldip message] The UA WBC) system which ge nerated this result transmit kuldip reference range : <=5. The reference range was not used to interpr et this result as abiodun l/abnormal. [facility] AND [id number] 05:22:00 Test Item Value Reference Range Interpretation Comments UA Mucus (test code = UA Mucus) Few /LPF [facility] AND [id number] 05:22:00 Test Item Value Reference Range Interpretation Comments UA Sq Epi (test code = UA Sq Occasional /LPF Epi) [facility] AND [id number] 05:22:00 Test Item Value Reference Range Interpretation Comments UA Nitrite (test code Negative (11/17/17 12:22 = UA Nitrite) AM) [facility] AND [id number] 05:22:00 Test Item Value Reference Range Interpretation Comments UA CaOx Judy (test code = UA Moderate /HPF CaOx Judy) [facility] AND [id number] 05:22:00 Test Item Value Reference Range Interpretation Comments UA Urobilinogen (test code = UA 4.0 0.1-1.0 Urobilinogen) [facility] AND [id number] 05:22:00 Test Item Value Reference Range Interpretation Comments UA Ketones (test code = UA Negative mg/dL Ketones) [facility] AND [id number] 05:22:00 Test Item Value Reference Range Interpretation Comments UA Blood (test code = Negative (11/17/17 12:22 UA Blood) AM) [facility] AND [id number] 05:22:00 Test Item Value Reference Range Interpretation Comments UA Bili (test code = Negative *NA*(11/17/17 UA Bili) 12:22 AM) [facility] AND [id number] 05:22:00 Test Item Value Reference Range Interpretation Comments UA Color (test code = Yellow *NA*(11/17/17 UA Color) 12:22 AM) [facility] AND [id number] 05:22:00 Test Item Value Reference Range Interpretation Comments UA Protein (test code = UA Negative mg/dL Protein) [facility] AND [id number] 05:22:00 Test Item Value Reference Range Interpretation Comments UA pH (test code = UA pH) 7.0 1 5.0-8.0 [facility] AND [id number] 05:22:00 Test Item Value Reference Range Interpretation Comments UA Spec Grav (test code = UA Spec 1.011 1 Grav) [facility] AND [id number] 05:22:00 Test Item Value Reference Range Interpretation Comments UA Turbidity (test code Slight *ABN*(11/17/17 = UA Turbidity) 12:22 AM) [facility] AND [id number] 05:22:00 Test Item Value Reference Range Interpretation Comments UA Glucose (test code = UA Negative mg/dL Glucose) [facility] AND [id number] 05:22:00 Test Item Value Reference Range Interpretation Comments UA Leuk Est (test Negative (11/17/17 12:22 code = UA Leuk Est) AM) [facility] AND [id number] 05:22:00 Test Item Value Reference Range Interpretation Comments UA Bacteria (test code = UA Occasional /HPF Bacteria) [facility] AND [id number] 05:22:00 Test Item Value Reference Range Interpretation Comments UA WBC (test code = 3 See_Comment [Automa kuldip message] The UA WBC) system which ge nerated this result transmit kuldip reference range : <=5. The reference range was not used to interpr et this result as abiodun l/abnormal. [facility] AND [id number] 05:22:00 Test Item Value Reference Range Interpretation Comments UA Mucus (test code = UA Mucus) Few /LPF [facility] AND [id number] 05:22:00 Test Item Value Reference Range Interpretation Comments UA Sq Epi (test code = UA Sq Occasional /LPF Epi) [facility] AND [id number] 05:22:00 Test Item Value Reference Range Interpretation Comments UA Nitrite (test code Negative (11/17/17 12:22 = UA Nitrite) AM) [facility] AND [id number] 05:22:00 Test Item Value Reference Range Interpretation Comments UA CaOx Judy (test code = UA Moderate /HPF CaOx Judy) [facility] AND [id number] 05:22:00 Test Item Value Reference Range Interpretation Comments UA Urobilinogen (test code = UA 4.0 0.1-1.0 Urobilinogen) [facility] AND [id number] 05:22:00 Test Item Value Reference Range Interpretation Comments UA Ketones (test code = UA Negative mg/dL Ketones) [facility] AND [id number] 05:22:00 Test Item Value Reference Range Interpretation Comments UA Blood (test code = Negative (11/17/17 12:22 UA Blood) AM) [facility] AND [id number] 05:22:00 Test Item Value Reference Range Interpretation Comments UA Bili (test code = Negative *NA*(11/17/17 UA Bili) 12:22 AM) [facility] AND [id number] 05:22:00 Test Item Value Reference Range Interpretation Comments UA Color (test code = Yellow *NA*(11/17/17 UA Color) 12:22 AM) [facility] AND [id number] 05:22:00 Test Item Value Reference Range Interpretation Comments UA Protein (test code = UA Negative mg/dL Protein) [facility] AND [id number] 05:22:00 Test Item Value Reference Range Interpretation Comments UA pH (test code = UA pH) 7.0 1 5.0-8.0 [facility] AND [id number] 05:22:00 Test Item Value Reference Range Interpretation Comments UA Spec Grav (test code = UA Spec 1.011 1 Grav) [facility] AND [id number] 05:22:00 Test Item Value Reference Range Interpretation Comments UA Turbidity (test code Slight *ABN*(11/17/17 = UA Turbidity) 12:22 AM) [facility] AND [id number] 05:22:00 Test Item Value Reference Range Interpretation Comments UA Glucose (test code = UA Negative mg/dL Glucose) [facility] [id number] 04:23:00 Test Item Value Reference Range Interpretation Comments Total CK (test code = Total CK) 191 12-191 [facility] [id number] 04:23:00 Test Item Value Reference Range Interpretation Comments Troponin-I (test code no gt See_Comment [Auto mated message] The = Troponin-I) system which g enerated this result transmit kuldip reference range : <=0.40. The reference r nilam was not used to interpr et this result as abiodun l/abnormal. [facility]2018-08-25 04:23:00 Test Item Value Reference Range Interpretation Comments eGFR (test code = eGFR) 104 [facility]2018-08-25 04:23:00 Test Item Value Reference Range Interpretation Comments Bili Total (test code = Bili Total) 0.5 0.2-1.3 [facility]2018-08-25 04:23:00 Test Item Value Reference Range Interpretation Comments Total Protein (test code = Total 8.9 6.4-8.4 Protein) [facility]2018-08-25 04:23:00 Test Item Value Reference Range Interpretation Comments ALT (test code = ALT) 24 See_Comment [Auto mated message] The system which ge nerated this result transmit kuldip reference range : <=65. The reference range was not used to interpr et this result as abiodun l/abnormal. [facility]2018-08-25 04:23:00 Test Item Value Reference Range Interpretation Comments Albumin Lvl (test code = Albumin Lvl) 3.7 3.5-5.0 [facility]2018-08-25 04:23:00 Test Item Value Reference Range Interpretation Comments AST (test code = AST) 27 See_Comment [Auto mated message] The system which ge nerated this result transmit kuldip reference range : <=37. The reference range was not used to interpr et this result as abiodun l/abnormal. [facility]2018-08-25 04:23:00 Test Item Value Reference Range Interpretation Comments Alk Phos (test code = Alk Phos) 86 39-136 [facility]2018-08-25 04:23:00 Test Item Value Reference Range Interpretation Comments Chloride Lvl (test code = Chloride Lvl) 103 95-109 [facility]2018-08-25 04:23:00 Test Item Value Reference Range Interpretation Comments CO2 (test code = CO2) 26 24-32 [facility]2018-08-25 04:23:00 Test Item Value Reference Range Interpretation Comments Calcium Lvl (test code = Calcium Lvl) 10.8 8.5-10.5 [facility]2018-08-25 04:23:00 Test Item Value Reference Range Interpretation Comments Potassium Lvl (test code = Potassium 4.1 3.5-5.1 Lvl) [facility]2018-08-25 04:23:00 Test Item Value Reference Range Interpretation Comments Sodium Lvl (test code = Sodium Lvl) 138 135-145 [facility]2018-08-25 04:23:00 Test Item Value Reference Range Interpretation Comments Glucose Lvl (test code = Glucose Lvl) 102 70-99 [facility]2018-08-25 04:23:00 Test Item Value Reference Range Interpretation Comments BUN (test code = BUN) 6 7-22 [facility]2018-08-25 04:23:00 Test Item Value Reference Range Interpretation Comments Creatinine Lvl (test code = Creatinine 0.80 0.50-1.40 Lvl) [facility]2018-08-25 04:23:00 Test Item Value Reference Range Interpretation Comments Globulin (test code = Globulin) 5.2 2.7-4.2 [facility]2018-08-25 04:23:00 Test Item Value Reference Range Interpretation Comments AGAP (test code = AGAP) 13.1 10.0-20.0 [facility]2018-08-25 04:23:00 Test Item Value Reference Range Interpretation Comments A/G Ratio (test code = A/G Ratio) 0.7 1 0.7-1.6 [facility]2018-08-25 04:23:00 Test Item Value Reference Range Interpretation Comments B/C Ratio (test code = B/C Ratio) 8 1 - [facility]2018-08-25 04:23:00 Test Item Value Reference Range Interpretation Comments Phosphorus (test code = Phosphorus) 1.9 2.5-4.5 [facility]2018-08-25 04:23:00 Test Item Value Reference Range Interpretation Comments Magnesium Lvl (test code = Magnesium 2.2 1.8-2.4 Lvl) [id number] 04:23:00 Test Item Value Reference Range Interpretation Comments S Preg (test code = S Negative *NA*(11/16/17 Preg) 11:23 PM) [facility]SbztnefWODMFBMMYW2390-05-15 04:23:00 Test Item Value Reference Range Interpretation Comments Hct (test code = Hct) 39.7 36.0-48.0 [facility]ZwsvzpbTXCPKWAOXR4608-99-10 04:23:00 Test Item Value Reference Range Interpretation Comments Hgb (test code = Hgb) 14.0 12.0-16.0 [facility] CenterGgpwskuJCYDFFWFWV1074-97-64 04:23:00 Test Item Value Reference Range Interpretation Comments WBC (test code = WBC) 7.3 3.7-10.4 [facility] CenterRrsvcazHBJIGOMTLZ8237-23-66 04:23:00 Test Item Value Reference Range Interpretation Comments RBC (test code = RBC) 4.56 4.20-5.40 [facility] C[id number] 04:23:00 Test Item Value Reference Range Interpretation Comments MCHC (test code = MCHC) 35.2 32.0-36.0 [facility] CenterNmrnkwjFIRRFBAIAW0918-28-09 04:23:00 Test Item Value Reference Range Interpretation Comments MCV (test code = MCV) 87.1 80.0-98.0 [facility] CenterMgrypssAAALBTICKO6811-64-08 04:23:00 Test Item Value Reference Range Interpretation Comments MPV (test code = MPV) 8.4 7.4-10.4 [facility] CenterMvurcfwRPUYIIEESG8046-35-55 04:23:00 Test Item Value Reference Range Interpretation Comments RDW (test code = RDW) 13.0 11.5-14.5 [facility] CenterNuxhwkcINXTGIQDLC2567-69-32 04:23:00 Test Item Value Reference Range Interpretation Comments MCH (test code = MCH) 30.7 pg 27.0-31.0 [facility] CenterHnkcedqKANHNKHCSY5871-09-56 04:23:00 Test Item Value Reference Range Interpretation Comments Platelet (test code = Platelet) 263 133-450 [facility] CenterMfcmeakZOZKNYSQBF2730-12-19 04:23:00 Test Item Value Reference Range Interpretation Comments D-Dimer (test code = D-Dimer) 0.27 [facility] CenterMarajznUAJOEVWTBQ4376-97-73 04:23:00 Test Item Value Reference Range Interpretation Comments Lymphocytes # (test code = Lymphocytes 2.3 1.0-5.5 #) [facility] CenterRcuzcwgWWBGQKJIAW2569-27-28 04:23:00 Test Item Value Reference Range Interpretation Comments Segs (test code = Segs) 58.7 45.0-75.0 [facility] CenterAxoyharCYKUSZPOGH5062-43-69 04:23:00 Test Item Value Reference Range Interpretation Comments Lymphocytes (test code = Lymphocytes) 31.5 20.0-40.0 [facility] CenterRhbpijcCRCMIUCIQM9518-23-18 04:23:00 Test Item Value Reference Range Interpretation Comments Neutrophils # (test code = Neutrophils 4.3 1.5-8.1 #) [facility] CenterSvnpynuWYQVLPBZLT5167-94-21 04:23:00 Test Item Value Reference Range Interpretation Comments Basophils (test code = 0.6 See_Comment [Aut omated message] The Basophils) system which ge nerated this result tra nsmitted reference range : <=1.0. The reference r nilam was not used to int erpret this result as normal/abnormal . [facility] CenterKoqkzzgUEBRZNIDTI1261-17-67 04:23:00 Test Item Value Reference Range Interpretation Comments Monocytes (test code = Monocytes) 6.7 2.0-12.0 [facility] CenterJtfmetfKRZAOOIBXH8090-58-52 04:23:00 Test Item Value Reference Range Interpretation Comments Eosinophils (test code = 2.5 See_Comment [A utomated message] The Eosinophils) system which ge nerated this result tra nsmitted reference range : <=4.0. The reference r nilam was not used to int erpret this result as normal/abnormal . [facility] CenterBqquvkhGMQYILAAZU7957-17-98 04:23:00 Test Item Value Reference Range Interpretation Comments Eosinophils # (test code 0.2 See_Comment [A utomated message] The = Eosinophils #) system [facility] h generated this result tra nsmitted reference range : <=0.5. The reference r nilam was not used to int erpret this result as normal/abnormal . [facility] HospitalFzahpzpDZYEWRTEKN2469-31-74 04:23:00 Test Item Value Reference Range Interpretation Comments Monocytes # (test code 0.5 See_Comment [Aut omated message] The = Monocytes #) system which generated this result tra nsmitted reference range : <=0.8. The reference r nilam was not used to int erpret this result as normal/abnormal . [facility] HospitalDream VillageJAXMPXX3891-06-65 04:23:00 Test Item Value Reference Range Interpretation Comments Total CK (test code = Total CK) 191 12-191 [facility] HospitalDream VillageMORQOQA4349-11-07 04:23:00 Test Item Value Reference Range Interpretation Comments Troponin-I (test code no gt See_Comment [Auto mated message] The = Troponin-I) system which g enerated this result transmit kuldip reference range : <=0.40. The reference r nilam was not used to interpr et this result as abiodun l/abnormal. [facility] HospitalOhm[facility] [id number] 04:23:00 Test Item Value Reference Range Interpretation Comments eGFR (test code = eGFR) 104 [facility]2018-08-25 04:23:00 Test Item Value Reference Range Interpretation Comments Bili Total (test code = Bili Total) 0.5 0.2-1.3 [facility]2018-08-25 04:23:00 Test Item Value Reference Range Interpretation Comments Total Protein (test code = Total 8.9 6.4-8.4 Protein) [facility]2018-08-25 04:23:00 Test Item Value Reference Range Interpretation Comments ALT (test code = ALT) 24 See_Comment [Auto mated message] The system which ge nerated this result transmit kuldip reference range : <=65. The reference range was not used to interpr et this result as abiodun l/abnormal. [facility] [id number] 04:23:00 Test Item Value Reference Range Interpretation Comments Albumin Lvl (test code = Albumin Lvl) 3.7 3.5-5.0 [facility] [id number] 04:23:00 Test Item Value Reference Range Interpretation Comments AST (test code = AST) 27 See_Comment [Auto mated message] The system which ge nerated this result transmit kuldip reference range : <=37. The reference range was not used to interpr et this result as abiodun l/abnormal. [facility] [id number] 04:23:00 Test Item Value Reference Range Interpretation Comments Alk Phos (test code = Alk Phos) 86 39-136 [facility] [id number] 04:23:00 Test Item Value Reference Range Interpretation Comments Chloride Lvl (test code = Chloride Lvl) 103 95-109 [facility] [id number] 04:23:00 Test Item Value Reference Range Interpretation Comments CO2 (test code = CO2) 26 24-32 [facility] CenterannCANNON MEMOR[facility] HOSPITALBMNMR3110-22-11 04:23:00 Test Item Value Reference Range Interpretation Comments Calcium Lvl (test code = Calcium Lvl) 10.8 8.5-10.5 [facility]2018-08-25 04:23:00 Test Item Value Reference Range Interpretation Comments Potassium Lvl (test code = Potassium 4.1 3.5-5.1 Lvl) [facility]2018-08-25 04:23:00 Test Item Value Reference Range Interpretation Comments Sodium Lvl (test code = Sodium Lvl) 138 135-145 [facility]2018-08-25 04:23:00 Test Item Value Reference Range Interpretation Comments Glucose Lvl (test code = Glucose Lvl) 102 70-99 [facility]2018-08-25 04:23:00 Test Item Value Reference Range Interpretation Comments BUN (test code = BUN) 6 7- [facility]2018-08-25 04:23:00 Test Item Value Reference Range Interpretation Comments Creatinine Lvl (test code = Creatinine 0.80 0.50-1.40 Lvl) [facility]2018-08-25 04:23:00 Test Item Value Reference Range Interpretation Comments Globulin (test code = Globulin) 5.2 2.7-4.2 [facility]2018-08-25 04:23:00 Test Item Value Reference Range Interpretation Comments AGAP (test code = AGAP) 13.1 10.0-20.0 [facility]2018-08-25 04:23:00 Test Item Value Reference Range Interpretation Comments A/G Ratio (test code = A/G Ratio) 0.7 1 0.7-1.6 [facility]2018-08-25 04:23:00 Test Item Value Reference Range Interpretation Comments B/C Ratio (test code = B/C Ratio) 8 1 09-17 [facility]2018-08-25 04:23:00 Test Item Value Reference Range Interpretation Comments Phosphorus (test code = Phosphorus) 1.9 2.5-4.5 [facility]2018-08-25 04:23:00 Test Item Value Reference Range Interpretation Comments Magnesium Lvl (test code = Magnesium 2.2 1.8-2.4 Lvl) [facility]PwstguaJFJVJXINNZBTZ0437-48-77 04:23:00 Test Item Value Reference Range Interpretation Comments S Preg (test code = S Negative *NA*(11/16/17 Preg) 11:23 PM) [facility] CenterVwqzonmGLCSLHXNHG1822-38-30 04:23:00 Test Item Value Reference Range Interpretation Comments Hct (test code = Hct) 39.7 36.0-48.0 [facility] CenterFqawjckRXBIFUCUIM7721-34-32 04:23:00 Test Item Value Reference Range Interpretation Comments Hgb (test code = Hgb) 14.0 12.0-16.0 [facility] CenterHbjzifgNWSRFAYQJO6858-19-17 04:23:00 Test Item Value Reference Range Interpretation Comments WBC (test code = WBC) 7.3 3.7-10.4 [facility] CenterXrscjnjUTJUGIAKGK2225-02-86 04:23:00 Test Item Value Reference Range Interpretation Comments RBC (test code = RBC) 4.56 4.20-5.40 [facility] CenterSifgkssYEVUWTDNNL3132-05-24 04:23:00 Test Item Value Reference Range Interpretation Comments MCHC (test code = MCHC) 35.2 32.0-36.0 [facility] CenterHnriarhWXLGCASCBN2223-13-39 04:23:00 Test Item Value Reference Range Interpretation Comments MCV (test code = MCV) 87.1 80.0-98.0 [facility] CenterHsdotsxIMOHBBRPSX9583-00-68 04:23:00 Test Item Value Reference Range Interpretation Comments MPV (test code = MPV) 8.4 7.4-10.4 [facility] CenterZurmejjSSGBZOUJYP5582-17-78 04:23:00 Test Item Value Reference Range Interpretation Comments RDW (test code = RDW) 13.0 11.5-14.5 [facility] CenterIznjiczIWSWAEVSON0680-08-02 04:23:00 Test Item Value Reference Range Interpretation Comments MCH (test code = MCH) 30.7 pg 27.0-31.0 [facility] CenterMkjyxbjPTVDZWXOQK9837-30-16 04:23:00 Test Item Value Reference Range Interpretation Comments Platelet (test code = Platelet) 263 133-450 [facility] CenterVtdsdryMGEZCEOZXQ6465-08-26 04:23:00 Test Item Value Reference Range Interpretation Comments D-Dimer (test code = D-Dimer) 0.27 [facility] CenterHqdqwrvWKAORGAGWO7212-14-15 04:23:00 Test Item Value Reference Range Interpretation Comments Lymphocytes # (test code = Lymphocytes 2.3 1.0-5.5 #) [facility] CenterIutzgpgWVBTQOMCGT6899-69-07 04:23:00 Test Item Value Reference Range Interpretation Comments Segs (test code = Segs) 58.7 45.0-75.0 [facility] CenterHjjyrvoOVHFXNNKTO4408-49-21 04:23:00 Test Item Value Reference Range Interpretation Comments Lymphocytes (test code = Lymphocytes) 31.5 20.0-40.0 [facility] CenterZocikcmNDGDSWTMXV7720-44-16 04:23:00 Test Item Value Reference Range Interpretation Comments Neutrophils # (test code = Neutrophils 4.3 1.5-8.1 #) [facility] CenterCwunszdCSWRYMOGEC5973-81-21 04:23:00 Test Item Value Reference Range Interpretation Comments Basophils (test code = 0.6 See_Comment [Aut omated message] The Basophils) system which ge nerated this result tra nsmitted reference range : <=1.0. The reference r nilam was not used to int erpret this result as normal/abnormal . [facility] CenterMcpwyfsUAHCOUYTHT2681-93-81 04:23:00 Test Item Value Reference Range Interpretation Comments Monocytes (test code = Monocytes) 6.7 2.0-12.0 [facility] CenterTfqsmywMBSMZFQDIS5131-51-21 04:23:00 Test Item Value Reference Range Interpretation Comments Eosinophils (test code = 2.5 See_Comment [A utomated message] The Eosinophils) system which ge nerated this result tra nsmitted reference range : <=4.0. The reference r nilam was not used to int erpret this result as normal/abnormal . [facility] CenterUxjdwezEZZEKVKOLX2277-18-14 04:23:00 Test Item Value Reference Range Interpretation Comments Eosinophils # (test code 0.2 See_Comment [A utomated message] The = Eosinophils #) system whic h generated this result tra nsmitted reference range : <=0.5. The reference r nilam was not used to int erpret this result as normal/abnormal . [facility] CenterIvnyrhrSGUWIQPXGS2210-98-70 04:23:00 Test Item Value Reference Range Interpretation Comments Monocytes # (test code 0.5 See_Comment [Aut omated message] The = Monocytes #) system which generated this result tra nsmitted reference range : <=0.8. The reference r nilam was not used to int erpret this result as normal/abnormal . [facility] CenterBreeze TechnologyCARFisgoAC [id number] 04:23:00 Test Item Value Reference Range Interpretation Comments Total CK (test code = Total CK) 191 12-191 [facility] [id number] 04:23:00 Test Item Value Reference Range Interpretation Comments Troponin-I (test code no gt See_Comment [Auto mated message] The = Troponin-I) system which g enerated this result transmit kuldip reference range : <=0.40. The reference r nilam was not used to interpr et this result as abiodun l/abnormal. [facility] [employer] [id number] 04:23:00 Test Item Value Reference Range Interpretation Comments eGFR (test code = eGFR) 104 [facility] [employer] [id number] 04:23:00 Test Item Value Reference Range Interpretation Comments Bili Total (test code = Bili Total) 0.5 0.2-1.3 [facility] [employer] [id number] 04:23:00 Test Item Value Reference Range Interpretation Comments Total Protein (test code = Total 8.9 6.4-8.4 Protein) [facility] [employer] [id number] 04:23:00 Test Item Value Reference Range Interpretation Comments ALT (test code = ALT) 24 See_Comment [Auto mated message] The system which ge nerated this result transmit kuldip reference range : <=65. The reference range was not used to interpr et this result as abiodun l/abnormal. [facility] [employer] [id number] 04:23:00 Test Item Value Reference Range Interpretation Comments Albumin Lvl (test code = Albumin Lvl) 3.7 3.5-5.0 [facility] [employer] [id number] 04:23:00 Test Item Value Reference Range Interpretation Comments AST (test code = AST) 27 See_Comment [Auto mated message] The system which ge nerated this result transmit kuldip reference range : <=37. The reference range was not used to interpr et this result as abiodun l/abnormal. [facility] [employer] [id number] 04:23:00 Test Item Value Reference Range Interpretation Comments Alk Phos (test code = Alk Phos) 86 39-136 [facility] [employer] [id number] 04:23:00 Test Item Value Reference Range Interpretation Comments Chloride Lvl (test code = Chloride Lvl) 103 95-109 [facility]2018-08-25 04:23:00 Test Item Value Reference Range Interpretation Comments CO2 (test code = CO2) 26 24-32 [facility]2018-08-25 04:23:00 Test Item Value Reference Range Interpretation Comments Calcium Lvl (test code = Calcium Lvl) 10.8 8.5-10.5 [facility]2018-08-25 04:23:00 Test Item Value Reference Range Interpretation Comments Potassium Lvl (test code = Potassium 4.1 3.5-5.1 Lvl) [facility]2018-08-25 04:23:00 Test Item Value Reference Range Interpretation Comments Sodium Lvl (test code = Sodium Lvl) 138 135-145 [facility]2018-08-25 04:23:00 Test Item Value Reference Range Interpretation Comments Glucose Lvl (test code = Glucose Lvl) 102 70-99 [facility]2018-08-25 04:23:00 Test Item Value Reference Range Interpretation Comments BUN (test code = BUN) 6 7-22 [facility]2018-08-25 04:23:00 Test Item Value Reference Range Interpretation Comments Creatinine Lvl (test code = Creatinine 0.80 0.50-1.40 Lvl) [facility]2018-08-25 04:23:00 Test Item Value Reference Range Interpretation Comments Globulin (test code = Globulin) 5.2 2.7-4.2 [facility]2018-08-25 04:23:00 Test Item Value Reference Range Interpretation Comments AGAP (test code = AGAP) 13.1 10.0-20.0 [facility]2018-08-25 04:23:00 Test Item Value Reference Range Interpretation Comments A/G Ratio (test code = A/G Ratio) 0.7 1 0.7-1.6 [facility]2018-08-25 04:23:00 Test Item Value Reference Range Interpretation Comments B/C Ratio (test code = B/C Ratio) 8 1 6-25 [facility]2018-08-25 04:23:00 Test Item Value Reference Range Interpretation Comments Phosphorus (test code = Phosphorus) 1.9 2.5-4.5 [facility] [id number] 04:23:00 Test Item Value Reference Range Interpretation Comments Magnesium Lvl (test code = Magnesium 2.2 1.8-2.4 Lvl) [place] [id number] 04:23:00 Test Item Value Reference Range Interpretation Comments S Preg (test code = S Negative *NA*(11/16/17 Preg) 11:23 PM) [facility] CenterPntofcrEEORHTTYXL4447-53-92 04:23:00 Test Item Value Reference Range Interpretation Comments Hct (test code = Hct) 39.7 36.0-48.0 [facility] CenterQtlevbqGWYELRBFZR4228-62-58 04:23:00 Test Item Value Reference Range Interpretation Comments Hgb (test code = Hgb) 14.0 12.0-16.0 [facility] CenterZnlqqcyWNTHFQGMQN0633-12-28 04:23:00 Test Item Value Reference Range Interpretation Comments WBC (test code = WBC) 7.3 3.7-10.4 [facility] CenterEklqgrkVBBLIVOVBS9972-81-63 04:23:00 Test Item Value Reference Range Interpretation Comments RBC (test code = RBC) 4.56 4.20-5.40 [facility] CenterNymjhdzXSMRCGJIRZ1001-40-90 04:23:00 Test Item Value Reference Range Interpretation Comments MCHC (test code = MCHC) 35.2 32.0-36.0 [facility] CenterZtkntkxIUTPMGUQIN8078-96-75 04:23:00 Test Item Value Reference Range Interpretation Comments MCV (test code = MCV) 87.1 80.0-98.0 [facility] CenterEnspmyaJYRTHOOSDK9087-67-07 04:23:00 Test Item Value Reference Range Interpretation Comments MPV (test code = MPV) 8.4 7.4-10.4 [facility] CenterTsbropwNOSSEJCEEF7730-19-38 04:23:00 Test Item Value Reference Range Interpretation Comments RDW (test code = RDW) 13.0 11.5-14.5 [facility] CenterLrtlkuoMADJEVVPGP0689-45-26 04:23:00 Test Item Value Reference Range Interpretation Comments MCH (test code = MCH) 30.7 pg 27.0-31.0 [facility] CenterJcmbjumCTWIEOBIZZ9211-04-02 04:23:00 Test Item Value Reference Range Interpretation Comments Platelet (test code = Platelet) 263 133-450 [facility] CenterAzitfkyXLDGYGPYCI1449-05-38 04:23:00 Test Item Value Reference Range Interpretation Comments D-Dimer (test code = D-Dimer) 0.27 [facility] CenterKwgnbaoMOUEGYWVMW1786-15-78 04:23:00 Test Item Value Reference Range Interpretation Comments Lymphocytes # (test code = Lymphocytes 2.3 1.0-5.5 #) [facility] CenterNumdaabSNQZMROOXK6524-23-35 04:23:00 Test Item Value Reference Range Interpretation Comments Segs (test code = Segs) 58.7 45.0-75.0 [facility] CenterXstzqjsZFPCXPRHYE7677-82-22 04:23:00 Test Item Value Reference Range Interpretation Comments Lymphocytes (test code = Lymphocytes) 31.5 20.0-40.0 [facility] CenterAebjituYYKJMWBTVZ9353-34-76 04:23:00 Test Item Value Reference Range Interpretation Comments Neutrophils # (test code = Neutrophils 4.3 1.5-8.1 #) [facility] CenterAwvewsnINPJJDHZMX6928-45-63 04:23:00 Test Item Value Reference Range Interpretation Comments Basophils (test code = 0.6 See_Comment [Aut omated message] The Basophils) system which ge nerated this result tra nsmitted reference range : <=1.0. The reference r nilam was not used to int erpret this result as normal/abnormal . [facility] CenterIerzdpmYHZSRNVWMR6503-11-20 04:23:00 Test Item Value Reference Range Interpretation Comments Monocytes (test code = Monocytes) 6.7 2.0-12.0 [facility] CenterKnlgtpfSQLRLGKHHU0270-47-61 04:23:00 Test Item Value Reference Range Interpretation Comments Eosinophils (test code = 2.5 See_Comment [A utomated message] The Eosinophils) system which ge nerated this result tra nsmitted reference range : <=4.0. The reference r nilam was not used to int erpret this result as normal/abnormal . [facility] CenterPyeypzoJNKBVBCJII1806-82-83 04:23:00 Test Item Value Reference Range Interpretation Comments Eosinophils # (test code 0.2 See_Comment [A utomated message] The = Eosinophils #) system whic h generated this result tra nsmitted reference range : <=0.5. The reference r nilam was not used to int erpret this result as normal/abnormal . [facility] CenterSpkhwdpTTZNIMESOF6617-69-14 04:23:00 Test Item Value Reference Range Interpretation Comments Monocytes # (test code 0.5 See_Comment [Aut omated message] The = Monocytes #) system which generated this result tra nsmitted reference range : <=0.8. The reference r nilam was not used to int erpret this result as normal/abnormal . [facility] BDPKZWL9072-29-29 04:23:00 Test Item Value Reference Range Interpretation Comments Total CK (test code = Total CK) 191 12-191 [facility] [id number] 04:23:00 Test Item Value Reference Range Interpretation Comments Troponin-I (test code no gt See_Comment [Auto mated message] The = Troponin-I) system which g enerated this result transmit kuldip reference range : <=0.40. The reference r nilam was not used to interpr et this result as abiodun l/abnormal. [facility] CenterEasyProperty [id number] 04:23:00 Test Item Value Reference Range Interpretation Comments eGFR (test code = eGFR) 104 [facility]Easy[facility] [id number] 04:23:00 Test Item Value Reference Range Interpretation Comments Bili Total (test code = Bili Total) 0.5 0.2-1.3 [facility] HospitalOhm[facility] [id number] 04:23:00 Test Item Value Reference Range Interpretation Comments Total Protein (test code = Total 8.9 6.4-8.4 Protein) [facility]Easy[facility] [id number] 04:23:00 Test Item Value Reference Range Interpretation Comments ALT (test code = ALT) 24 See_Comment [Auto mated message] The system which ge nerated this result transmit kuldip reference range : <=65. The reference range was not used to interpr et this result as abiodun l/abnormal. [facility] [employer] [id number] 04:23:00 Test Item Value Reference Range Interpretation Comments Albumin Lvl (test code = Albumin Lvl) 3.7 3.5-5.0 [facility] CenterEasy[facility] [id number] 04:23:00 Test Item Value Reference Range Interpretation Comments AST (test code = AST) 27 See_Comment [Auto mated message] The system which ge nerated this result transmit kuldip reference range : <=37. The reference range was not used to interpr et this result as abiodun l/abnormal. [facility]2018-08-25 04:23:00 Test Item Value Reference Range Interpretation Comments Alk Phos (test code = Alk Phos) 86 39-136 [facility]2018-08-25 04:23:00 Test Item Value Reference Range Interpretation Comments Chloride Lvl (test code = Chloride Lvl) 103 95-109 [facility]2018-08-25 04:23:00 Test Item Value Reference Range Interpretation Comments CO2 (test code = CO2) 26 24-32 [facility]2018-08-25 04:23:00 Test Item Value Reference Range Interpretation Comments Calcium Lvl (test code = Calcium Lvl) 10.8 8.5-10.5 [facility]2018-08-25 04:23:00 Test Item Value Reference Range Interpretation Comments Potassium Lvl (test code = Potassium 4.1 3.5-5.1 Lvl) [facility]2018-08-25 04:23:00 Test Item Value Reference Range Interpretation Comments Sodium Lvl (test code = Sodium Lvl) 138 135-145 [facility]2018-08-25 04:23:00 Test Item Value Reference Range Interpretation Comments Glucose Lvl (test code = Glucose Lvl) 102 70-99 [facility]2018-08-25 04:23:00 Test Item Value Reference Range Interpretation Comments BUN (test code = BUN) 6 7-22 [facility]2018-08-25 04:23:00 Test Item Value Reference Range Interpretation Comments Creatinine Lvl (test code = Creatinine 0.80 0.50-1.40 Lvl) [facility]2018-08-25 04:23:00 Test Item Value Reference Range Interpretation Comments Globulin (test code = Globulin) 5.2 2.7-4.2 [facility]2018-08-25 04:23:00 Test Item Value Reference Range Interpretation Comments AGAP (test code = AGAP) 13.1 10.0-20.0 [facility]2018-08-25 04:23:00 Test Item Value Reference Range Interpretation Comments A/G Ratio (test code = A/G Ratio) 0.7 1 0.7-1.6 [facility]2018-08-25 04:23:00 Test Item Value Reference Range Interpretation Comments B/C Ratio (test code = B/C Ratio) 8 1 6-25 [facility]2018-08-25 04:23:00 Test Item Value Reference Range Interpretation Comments Phosphorus (test code = Phosphorus) 1.9 2.5-4.5 [facility]2018-08-25 04:23:00 Test Item Value Reference Range Interpretation Comments Magnesium Lvl (test code = Magnesium 2.2 1.8-2.4 Lvl) [place] [id number] 04:23:00 Test Item Value Reference Range Interpretation Comments S Preg (test code = S Negative *NA*(11/16/17 Preg) 11:23 PM) [facility] CenterGjaxpjzLGQNPEVELF1996-06-07 04:23:00 Test Item Value Reference Range Interpretation Comments Hct (test code = Hct) 39.7 36.0-48.0 [facility] CenterRtbvhllREZPEGNHMN2782-95-19 04:23:00 Test Item Value Reference Range Interpretation Comments Hgb (test code = Hgb) 14.0 12.0-16.0 [facility] CenterWjojkrrCIUZSLNASQ6165-70-76 04:23:00 Test Item Value Reference Range Interpretation Comments WBC (test code = WBC) 7.3 3.7-10.4 [facility] CenterNpszgppJNKWWQLPKF1372-29-80 04:23:00 Test Item Value Reference Range Interpretation Comments RBC (test code = RBC) 4.56 4.20-5.40 [facility] CenterHhalklwVOMZJUVIJX6978-09-50 04:23:00 Test Item Value Reference Range Interpretation Comments MCHC (test code = MCHC) 35.2 32.0-36.0 [facility] CenterPtdzvjhEJZRYAOWGX8007-71-11 04:23:00 Test Item Value Reference Range Interpretation Comments MCV (test code = MCV) 87.1 80.0-98.0 [facility] CenterQoiysrxNJSCYITTGP6818-36-50 04:23:00 Test Item Value Reference Range Interpretation Comments MPV (test code = MPV) 8.4 7.4-10.4 [facility] CenterJltjgurDOEFVPAKWS8975-82-39 04:23:00 Test Item Value Reference Range Interpretation Comments RDW (test code = RDW) 13.0 11.5-14.5 [facility] CenterKzglfywAMPIZRGFLM1222-15-17 04:23:00 Test Item Value Reference Range Interpretation Comments MCH (test code = MCH) 30.7 pg 27.0-31.0 [facility] CenterKvlypilRSOOYEALWS0132-48-38 04:23:00 Test Item Value Reference Range Interpretation Comments Platelet (test code = Platelet) 263 133-450 [facility] CenterVyitqwxZMENNJEDLV6112-94-24 04:23:00 Test Item Value Reference Range Interpretation Comments D-Dimer (test code = D-Dimer) 0.27 [facility] CenterVjbkrckXKWHHSAKHJ3325-42-24 04:23:00 Test Item Value Reference Range Interpretation Comments Lymphocytes # (test code = Lymphocytes 2.3 1.0-5.5 #) [facility] CenterOwjtkfzWPILGLLVJD1133-72-23 04:23:00 Test Item Value Reference Range Interpretation Comments Segs (test code = Segs) 58.7 45.0-75.0 [facility] CenterEjxdnskEKKAZRLAFF1478-45-25 04:23:00 Test Item Value Reference Range Interpretation Comments Lymphocytes (test code = Lymphocytes) 31.5 20.0-40.0 [facility] CenterAkjtpviGXGWQTUEOQ9385-48-56 04:23:00 Test Item Value Reference Range Interpretation Comments Neutrophils # (test code = Neutrophils 4.3 1.5-8.1 #) [facility] CenterSqcwldeNPDAHIUXQR4707-96-21 04:23:00 Test Item Value Reference Range Interpretation Comments Basophils (test code = 0.6 See_Comment [Aut omated message] The Basophils) system which ge nerated this result tra nsmitted reference range : <=1.0. The reference r nilam was not used to int erpret this result as normal/abnormal . [facility] CenterYabxasaMFQWWBTKCU5589-80-68 04:23:00 Test Item Value Reference Range Interpretation Comments Monocytes (test code = Monocytes) 6.7 2.0-12.0 [facility] CenterQdrybqzLNDCFEIFEW3451-54-93 04:23:00 Test Item Value Reference Range Interpretation Comments Eosinophils (test code = 2.5 See_Comment [A utomated message] The Eosinophils) system which ge nerated this result tra nsmitted reference range : <=4.0. The reference r nilam was not used to int erpret this result as normal/abnormal . [facility] CenterIyxeubiMYXHWEEQHT2923-94-92 04:23:00 Test Item Value Reference Range Interpretation Comments Eosinophils # (test code 0.2 See_Comment [A utomated message] The = Eosinophils #) system whic h generated this result tra nsmitted reference range : <=0.5. The reference r nilam was not used to int erpret this result as normal/abnormal . [facility] CenterRnfpwibFOWGPDGWXE6440-94-12 04:23:00 Test Item Value Reference Range Interpretation Comments Monocytes # (test code 0.5 See_Comment [Aut omated message] The = Monocytes #) system which generated this result tra nsmitted reference range : <=0.8. The reference r nilam was not used to int erpret this result as normal/abnormal . [facility] CenterAmagi Media Labs [id number] 04:23:00 Test Item Value Reference Range Interpretation Comments Total CK (test code = Total CK) 191 12-191 [facility] CenterSafeTacMag [id number] 04:23:00 Test Item Value Reference Range Interpretation Comments Troponin-I (test code no gt See_Comment [Auto mated message] The = Troponin-I) system which g enerated this result transmit kuldip reference range : <=0.40. The reference r nilam was not used to interpr et this result as abiodun l/abnormal. [facility] [employer] [id number] 04:23:00 Test Item Value Reference Range Interpretation Comments eGFR (test code = eGFR) 104 [facility] [employer] [id number] 04:23:00 Test Item Value Reference Range Interpretation Comments Bili Total (test code = Bili Total) 0.5 0.2-1.3 [facility] [employer] [id number] 04:23:00 Test Item Value Reference Range Interpretation Comments Total Protein (test code = Total 8.9 6.4-8.4 Protein) [facility] [employer] [id number] 04:23:00 Test Item Value Reference Range Interpretation Comments ALT (test code = ALT) 24 See_Comment [Auto mated message] The system which ge nerated this result transmit kuldip reference range : <=65. The reference range was not used to interpr et this result as abiodun l/abnormal. [facility] [employer] [id number] 04:23:00 Test Item Value Reference Range Interpretation Comments Albumin Lvl (test code = Albumin Lvl) 3.7 3.5-5.0 [facility]2018-08-25 04:23:00 Test Item Value Reference Range Interpretation Comments AST (test code = AST) 27 See_Comment [Auto mated message] The system which ge nerated this result transmit kuldip reference range : <=37. The reference range was not used to interpr et this result as abiodun l/abnormal. [facility]2018-08-25 04:23:00 Test Item Value Reference Range Interpretation Comments Alk Phos (test code = Alk Phos) 86 39-136 [facility]2018-08-25 04:23:00 Test Item Value Reference Range Interpretation Comments Chloride Lvl (test code = Chloride Lvl) 103 95-109 [facility]2018-08-25 04:23:00 Test Item Value Reference Range Interpretation Comments CO2 (test code = CO2) 26 24-32 [facility]2018-08-25 04:23:00 Test Item Value Reference Range Interpretation Comments Calcium Lvl (test code = Calcium Lvl) 10.8 8.5-10.5 [facility]2018-08-25 04:23:00 Test Item Value Reference Range Interpretation Comments Potassium Lvl (test code = Potassium 4.1 3.5-5.1 Lvl) [facility]2018-08-25 04:23:00 Test Item Value Reference Range Interpretation Comments Sodium Lvl (test code = Sodium Lvl) 138 135-145 [facility]2018-08-25 04:23:00 Test Item Value Reference Range Interpretation Comments Glucose Lvl (test code = Glucose Lvl) 102 70-99 [facility]2018-08-25 04:23:00 Test Item Value Reference Range Interpretation Comments BUN (test code = BUN) 6 7-22 [facility]2018-08-25 04:23:00 Test Item Value Reference Range Interpretation Comments Creatinine Lvl (test code = Creatinine 0.80 0.50-1.40 Lvl) [facility]2018-08-25 04:23:00 Test Item Value Reference Range Interpretation Comments Globulin (test code = Globulin) 5.2 2.7-4.2 [facility]2018-08-25 04:23:00 Test Item Value Reference Range Interpretation Comments AGAP (test code = AGAP) 13.1 10.0-20.0 [facility]2018-08-25 04:23:00 Test Item Value Reference Range Interpretation Comments A/G Ratio (test code = A/G Ratio) 0.7 1 0.7-1.6 [facility]2018-08-25 04:23:00 Test Item Value Reference Range Interpretation Comments B/C Ratio (test code = B/C Ratio) 8 1 6-25 [facility]2018-08-25 04:23:00 Test Item Value Reference Range Interpretation Comments Phosphorus (test code = Phosphorus) 1.9 2.5-4.5 [facility]2018-08-25 04:23:00 Test Item Value Reference Range Interpretation Comments Magnesium Lvl (test code = Magnesium 2.2 1.8-2.4 Lvl) [place] [id number] 04:23:00 Test Item Value Reference Range Interpretation Comments S Preg (test code = S Negative *NA*(11/16/17 Preg) 11:23 PM) [facility] CenterBcokouwXIHWCEPJAC9093-94-73 04:23:00 Test Item Value Reference Range Interpretation Comments Hct (test code = Hct) 39.7 36.0-48.0 [facility] CenterTjlsynePMTPDCCHOI4351-86-88 04:23:00 Test Item Value Reference Range Interpretation Comments Hgb (test code = Hgb) 14.0 12.0-16.0 [facility] CenterKcrftnlTRAGSKCNHY4121-59-34 04:23:00 Test Item Value Reference Range Interpretation Comments WBC (test code = WBC) 7.3 3.7-10.4 [facility] CenterLzfzjxdTHIJEPYQAD3374-91-09 04:23:00 Test Item Value Reference Range Interpretation Comments RBC (test code = RBC) 4.56 4.20-5.40 [facility] CenterTtbxwamNJSVNZECMN2676-87-05 04:23:00 Test Item Value Reference Range Interpretation Comments MCHC (test code = MCHC) 35.2 32.0-36.0 [facility] CenterKyqohgmEOOMQUGSZP7763-88-52 04:23:00 Test Item Value Reference Range Interpretation Comments MCV (test code = MCV) 87.1 80.0-98.0 [facility] CenterHldgqyvCIDVQKLFOC4023-00-29 04:23:00 Test Item Value Reference Range Interpretation Comments MPV (test code = MPV) 8.4 7.4-10.4 [facility] CenterBhrejlkBLRMUKXOLP6709-25-88 04:23:00 Test Item Value Reference Range Interpretation Comments RDW (test code = RDW) 13.0 11.5-14.5 [facility] CenterBqhgcreBYGSQFAIYU7554-97-53 04:23:00 Test Item Value Reference Range Interpretation Comments MCH (test code = MCH) 30.7 pg 27.0-31.0 [facility] CenterQsmpigbRNOAHLQMVW0400-32-00 04:23:00 Test Item Value Reference Range Interpretation Comments Platelet (test code = Platelet) 263 133-450 [facility] CenterNrosmnwELTEDFRZTF7940-95-44 04:23:00 Test Item Value Reference Range Interpretation Comments D-Dimer (test code = D-Dimer) 0.27 [facility] CenterOydvsleGIDIRUKQIW9600-75-26 04:23:00 Test Item Value Reference Range Interpretation Comments Lymphocytes # (test code = Lymphocytes 2.3 1.0-5.5 #) [facility] CenterXngqwspQALKKZLGMQ3165-05-17 04:23:00 Test Item Value Reference Range Interpretation Comments Segs (test code = Segs) 58.7 45.0-75.0 [facility] CenterIqhcstxYTWAYMTVGR7759-26-49 04:23:00 Test Item Value Reference Range Interpretation Comments Lymphocytes (test code = Lymphocytes) 31.5 20.0-40.0 [facility] CenterOgnackdVYLOSQCYBY9841-02-87 04:23:00 Test Item Value Reference Range Interpretation Comments Neutrophils # (test code = Neutrophils 4.3 1.5-8.1 #) [facility] CenterMfwmwblQITFDKMEQD7358-45-31 04:23:00 Test Item Value Reference Range Interpretation Comments Basophils (test code = 0.6 See_Comment [Aut omated message] The Basophils) system which ge nerated this result tra nsmitted reference range : <=1.0. The reference r nilam was not used to int erpret this result as normal/abnormal . [id number] 04:23:00 Test Item Value Reference Range Interpretation Comments Monocytes (test code = Monocytes) 6.7 2.0-12.0 [facility] CenterAshkkpjAIGSGOQBIU9948-45-61 04:23:00 Test Item Value Reference Range Interpretation Comments Eosinophils (test code = 2.5 See_Comment [A utomated message] The Eosinophils) system which ge nerated this result tra nsmitted reference range : <=4.0. The reference r nilam was not used to int erpret this result as normal/abnormal . [facility] CenterZwdcbvuDPYLIBUVEB5574-82-45 04:23:00 Test Item Value Reference Range Interpretation Comments Eosinophils # (test code 0.2 See_Comment [A utomated message] The = Eosinophils #) system whic h generated this result tra nsmitted reference range : <=0.5. The reference r nilam was not used to int erpret this result as normal/abnormal . [facility] CenterAqwrlddNZUROISXOE7200-15-82 04:23:00 Test Item Value Reference Range Interpretation Comments Monocytes # (test code 0.5 See_Comment [Aut omated message] The = Monocytes #) system which generated this result tra nsmitted reference range : <=0.8. The reference r nilam was not used to int erpret this result as normal/abnormal . [facility] [employer]2018-08-25 04:23:00 Test Item Value Reference Range Interpretation Comments Total CK (test code = Total CK) 191 12-191 [facility] 04:23:00 Test Item Value Reference Range Interpretation Comments Troponin-I (test code no gt See_Comment [Auto mated message] The = Troponin-I) system which g enerated this result transmit kuldip reference range : <=0.40. The reference r nilam was not used to interpr et this result as abiodun l/abnormal. [facility] [employer]2018-08-25 04:23:00 Test Item Value Reference Range Interpretation Comments eGFR (test code = eGFR) 104 [facility] [employer]2018-08-25 04:23:00 Test Item Value Reference Range Interpretation Comments Bili Total (test code = Bili Total) 0.5 0.2-1.3 [facility] [employer]2018-08-25 04:23:00 Test Item Value Reference Range Interpretation Comments Total Protein (test code = Total 8.9 6.4-8.4 Protein) [facility] [employer]2018-08-25 04:23:00 Test Item Value Reference Range Interpretation Comments ALT (test code = ALT) 24 See_Comment [Auto mated message] The system which ge nerated this result transmit kuldip reference range : <=65. The reference range was not used to interpr et this result as abiodun l/abnormal. [facility]2018-08-25 04:23:00 Test Item Value Reference Range Interpretation Comments Albumin Lvl (test code = Albumin Lvl) 3.7 3.5-5.0 [facility]2018-08-25 04:23:00 Test Item Value Reference Range Interpretation Comments AST (test code = AST) 27 See_Comment [Auto mated message] The system which ge nerated this result transmit kuldip reference range : <=37. The reference range was not used to interpr et this result as abiodun l/abnormal. [facility]2018-08-25 04:23:00 Test Item Value Reference Range Interpretation Comments Alk Phos (test code = Alk Phos) 86 39-136 [facility]2018-08-25 04:23:00 Test Item Value Reference Range Interpretation Comments Chloride Lvl (test code = Chloride Lvl) 103 95-109 [facility]2018-08-25 04:23:00 Test Item Value Reference Range Interpretation Comments CO2 (test code = CO2) 26 24-32 [facility]2018-08-25 04:23:00 Test Item Value Reference Range Interpretation Comments Calcium Lvl (test code = Calcium Lvl) 10.8 8.5-10.5 [facility]2018-08-25 04:23:00 Test Item Value Reference Range Interpretation Comments Potassium Lvl (test code = Potassium 4.1 3.5-5.1 Lvl) [facility]2018-08-25 04:23:00 Test Item Value Reference Range Interpretation Comments Sodium Lvl (test code = Sodium Lvl) 138 135-145 [facility]2018-08-25 04:23:00 Test Item Value Reference Range Interpretation Comments Glucose Lvl (test code = Glucose Lvl) 102 70-99 [facility]2018-08-25 04:23:00 Test Item Value Reference Range Interpretation Comments BUN (test code = BUN) 6 7-22 [facility]2018-08-25 04:23:00 Test Item Value Reference Range Interpretation Comments Creatinine Lvl (test code = Creatinine 0.80 0.50-1.40 Lvl) [facility]2018-08-25 04:23:00 Test Item Value Reference Range Interpretation Comments Globulin (test code = Globulin) 5.2 2.7-4.2 [facility]2018-08-25 04:23:00 Test Item Value Reference Range Interpretation Comments AGAP (test code = AGAP) 13.1 10.0-20.0 [facility]2018-08-25 04:23:00 Test Item Value Reference Range Interpretation Comments A/G Ratio (test code = A/G Ratio) 0.7 1 0.7-1.6 [facility]2018-08-25 04:23:00 Test Item Value Reference Range Interpretation Comments B/C Ratio (test code = B/C Ratio) 8 1 6-25 [facility]2018-08-25 04:23:00 Test Item Value Reference Range Interpretation Comments Phosphorus (test code = Phosphorus) 1.9 2.5-4.5 [facility]2018-08-25 04:23:00 Test Item Value Reference Range Interpretation Comments Magnesium Lvl (test code = Magnesium 2.2 1.8-2.4 Lvl) [facility]NtkraysSEIKRPUUHNLUZ0215-74-80 04:23:00 Test Item Value Reference Range Interpretation Comments S Preg (test code = S Negative *NA*(11/16/17 Preg) 11:23 PM) [facility] CenterXwnastbBUWMUFZSTK7848-54-47 04:23:00 Test Item Value Reference Range Interpretation Comments Hct (test code = Hct) 39.7 36.0-48.0 [facility] CenterLhigwhvHJADQJXHTH5214-04-72 04:23:00 Test Item Value Reference Range Interpretation Comments Hgb (test code = Hgb) 14.0 12.0-16.0 [facility] CenterMzpjqjxRLLABLEXND7698-48-35 04:23:00 Test Item Value Reference Range Interpretation Comments WBC (test code = WBC) 7.3 3.7-10.4 [facility] CenterUyubiuqBYDJTONXZG5368-78-69 04:23:00 Test Item Value Reference Range Interpretation Comments RBC (test code = RBC) 4.56 4.20-5.40 [facility] CenterDutgbalQXQXDPDLMR8473-30-39 04:23:00 Test Item Value Reference Range Interpretation Comments MCHC (test code = MCHC) 35.2 32.0-36.0 [facility] CenterWabbymlJQLFQQHNKU5338-77-31 04:23:00 Test Item Value Reference Range Interpretation Comments MCV (test code = MCV) 87.1 80.0-98.0 [facility] CenterRyhryenVKLCBXDZQH5614-26-15 04:23:00 Test Item Value Reference Range Interpretation Comments MPV (test code = MPV) 8.4 7.4-10.4 [facility] CenterNsgwrpzIOTDWCIFGO4926-52-71 04:23:00 Test Item Value Reference Range Interpretation Comments RDW (test code = RDW) 13.0 11.5-14.5 [facility] CenterJgkrrhyWHOOUZKUHJ4176-02-32 04:23:00 Test Item Value Reference Range Interpretation Comments MCH (test code = MCH) 30.7 pg 27.0-31.0 [facility] CenterAebunrbUMQLPXOFVQ9554-11-16 04:23:00 Test Item Value Reference Range Interpretation Comments Platelet (test code = Platelet) 263 133-450 [facility] CenterSbdgmtwAANARYKALN0314-98-03 04:23:00 Test Item Value Reference Range Interpretation Comments D-Dimer (test code = D-Dimer) 0.27 [facility] CenterFmeupypVPUHUBSLNW5893-88-63 04:23:00 Test Item Value Reference Range Interpretation Comments Lymphocytes # (test code = Lymphocytes 2.3 1.0-5.5 #) [facility] CenterTkqleloKTIPTHAGHL0270-34-15 04:23:00 Test Item Value Reference Range Interpretation Comments Segs (test code = Segs) 58.7 45.0-75.0 [facility] CenterLjpqaedGLYBYEPRHC2329-48-90 04:23:00 Test Item Value Reference Range Interpretation Comments Lymphocytes (test code = Lymphocytes) 31.5 20.0-40.0 [facility] CenterTnlgslvZYEKARKVVP3478-26-24 04:23:00 Test Item Value Reference Range Interpretation Comments Neutrophils # (test code = Neutrophils 4.3 1.5-8.1 #) [facility] CenterBbrrosgZPAZPONEGU8143-24-35 04:23:00 Test Item Value Reference Range Interpretation Comments Basophils (test code = 0.6 See_Comment [Aut omated message] The Basophils) system which ge nerated this result tra nsmitted reference range : <=1.0. The reference r nilam was not used to int erpret this result as normal/abnormal . [facility] CenterOxyxyrwGQGTSYXUDV9579-00-61 04:23:00 Test Item Value Reference Range Interpretation Comments Monocytes (test code = Monocytes) 6.7 2.0-12.0 [facility] CenterVvlpssjVSYUHQUGYC3041-34-09 04:23:00 Test Item Value Reference Range Interpretation Comments Eosinophils (test code = 2.5 See_Comment [A utomated message] The Eosinophils) system which ge nerated this result tra nsmitted reference range : <=4.0. The reference r nilam was not used to int erpret this result as normal/abnormal . [facility] CenterEmdxxkdGRWJRMJBEW2709-51-70 04:23:00 Test Item Value Reference Range Interpretation Comments Eosinophils # (test code 0.2 See_Comment [A utomated message] The = Eosinophils #) system whic h generated this result tra nsmitted reference range : <=0.5. The reference r nilam was not used to int erpret this result as normal/abnormal . [facility] CenterOfurealEYNTXVIPSI4402-59-22 04:23:00 Test Item Value Reference Range Interpretation Comments Monocytes # (test code 0.5 See_Comment [Aut omated message] The = Monocytes #) system which generated this result tra nsmitted reference range : <=0.8. The reference r nilam was not used to int erpret this result as normal/abnormal . [facility] CenterAmagi Media Labs [id number] 04:23:00 Test Item Value Reference Range Interpretation Comments Total CK (test code = Total CK) 191 12-191 [facility] CenterAm[facility] Labs [id number] 04:23:00 Test Item Value Reference Range Interpretation Comments Troponin-I (test code no gt See_Comment [Auto mated message] The = Troponin-I) system which g enerated this result transmit kuldip reference range : <=0.40. The reference r nilam was not used to interpr et this result as abiodun l/abnormal. [facility] [employer] [id number] 04:23:00 Test Item Value Reference Range Interpretation Comments eGFR (test code = eGFR) 104 [facility] [employer] [id number] 04:23:00 Test Item Value Reference Range Interpretation Comments Bili Total (test code = Bili Total) 0.5 0.2-1.3 [facility] [employer] [id number] 04:23:00 Test Item Value Reference Range Interpretation Comments Total Protein (test code = Total 8.9 6.4-8.4 Protein) [facility]2018-08-25 04:23:00 Test Item Value Reference Range Interpretation Comments ALT (test code = ALT) 24 See_Comment [Auto mated message] The system which ge nerated this result transmit kuldip reference range : <=65. The reference range was not used to interpr et this result as abiodun l/abnormal. [facility]2018-08-25 04:23:00 Test Item Value Reference Range Interpretation Comments Albumin Lvl (test code = Albumin Lvl) 3.7 3.5-5.0 [facility]2018-08-25 04:23:00 Test Item Value Reference Range Interpretation Comments AST (test code = AST) 27 See_Comment [Auto mated message] The system which ge nerated this result transmit kuldip reference range : <=37. The reference range was not used to interpr et this result as abiodun l/abnormal. [facility]2018-08-25 04:23:00 Test Item Value Reference Range Interpretation Comments Alk Phos (test code = Alk Phos) 86 39-136 [facility]2018-08-25 04:23:00 Test Item Value Reference Range Interpretation Comments Chloride Lvl (test code = Chloride Lvl) 103 95-109 [facility]2018-08-25 04:23:00 Test Item Value Reference Range Interpretation Comments CO2 (test code = CO2) 26 24-32 [facility]2018-08-25 04:23:00 Test Item Value Reference Range Interpretation Comments Calcium Lvl (test code = Calcium Lvl) 10.8 8.5-10.5 [facility]2018-08-25 04:23:00 Test Item Value Reference Range Interpretation Comments Potassium Lvl (test code = Potassium 4.1 3.5-5.1 Lvl) [facility]2018-08-25 04:23:00 Test Item Value Reference Range Interpretation Comments Sodium Lvl (test code = Sodium Lvl) 138 135-145 [facility]2018-08-25 04:23:00 Test Item Value Reference Range Interpretation Comments Glucose Lvl (test code = Glucose Lvl) 102 70-99 [facility]Oh[facility] [id number] 04:23:00 Test Item Value Reference Range Interpretation Comments BUN (test code = BUN) 6 7-22 [facility]2018-08-25 04:23:00 Test Item Value Reference Range Interpretation Comments Creatinine Lvl (test code = Creatinine 0.80 0.50-1.40 Lvl) [facility]2018-08-25 04:23:00 Test Item Value Reference Range Interpretation Comments Globulin (test code = Globulin) 5.2 2.7-4.2 [facility]2018-08-25 04:23:00 Test Item Value Reference Range Interpretation Comments AGAP (test code = AGAP) 13.1 10.0-20.0 [facility]2018-08-25 04:23:00 Test Item Value Reference Range Interpretation Comments A/G Ratio (test code = A/G Ratio) 0.7 1 0.7-1.6 [facility]2018-08-25 04:23:00 Test Item Value Reference Range Interpretation Comments B/C Ratio (test code = B/C Ratio) 8 1 - [facility]2018-08-25 04:23:00 Test Item Value Reference Range Interpretation Comments Phosphorus (test code = Phosphorus) 1.9 2.5-4.5 [facility]2018-08-25 04:23:00 Test Item Value Reference Range Interpretation Comments Magnesium Lvl (test code = Magnesium 2.2 1.8-2.4 Lvl) [facility] HospitalUvxfhmdWRURJMTNJQPVR7018-35-52 04:23:00 Test Item Value Reference Range Interpretation Comments S Preg (test code = S Negative *NA*(11/16/17 Preg) 11:23 PM) [facility] CenterMdktelhWJZKLBDSGR6997-35-14 04:23:00 Test Item Value Reference Range Interpretation Comments Hct (test code = Hct) 39.7 36.0-48.0 [facility] CenterVbyfhizLIBGGVIPKI1587-39-82 04:23:00 Test Item Value Reference Range Interpretation Comments Hgb (test code = Hgb) 14.0 12.0-16.0 [facility] CenterWmmtnmeYNWFGSUEGQ9917-61-33 04:23:00 Test Item Value Reference Range Interpretation Comments WBC (test code = WBC) 7.3 3.7-10.4 [facility] CenterJgeceozBGSKGVWRDO7779-67-83 04:23:00 Test Item Value Reference Range Interpretation Comments RBC (test code = RBC) 4.56 4.20-5.40 [facility] CenterLnzsmbbQJTBQJCXFQ4048-55-83 04:23:00 Test Item Value Reference Range Interpretation Comments MCHC (test code = MCHC) 35.2 32.0-36.0 [facility] CenterOmnurpaROFKISWYZP4686-36-45 04:23:00 Test Item Value Reference Range Interpretation Comments MCV (test code = MCV) 87.1 80.0-98.0 [facility] CenterBhilgirDWNZMYTTJR0687-72-44 04:23:00 Test Item Value Reference Range Interpretation Comments MPV (test code = MPV) 8.4 7.4-10.4 [facility] CenterVatppmsTHMIHRVSCO2802-11-93 04:23:00 Test Item Value Reference Range Interpretation Comments RDW (test code = RDW) 13.0 11.5-14.5 [facility] CenterZlybffyUDECIQIBPO2210-84-34 04:23:00 Test Item Value Reference Range Interpretation Comments MCH (test code = MCH) 30.7 pg 27.0-31.0 [facility] CenterGwqktauXGXOFFFWPF2065-84-66 04:23:00 Test Item Value Reference Range Interpretation Comments Platelet (test code = Platelet) 263 133-450 [facility] CenterIfjvlkjWLHJLMRQPF7894-34-55 04:23:00 Test Item Value Reference Range Interpretation Comments D-Dimer (test code = D-Dimer) 0.27 [facility] CenterPosmszlZGPRDJZXVY3534-21-62 04:23:00 Test Item Value Reference Range Interpretation Comments Lymphocytes # (test code = Lymphocytes 2.3 1.0-5.5 #) [facility] CenterXtqplgmNNVNSYDVPI3601-59-21 04:23:00 Test Item Value Reference Range Interpretation Comments Segs (test code = Segs) 58.7 45.0-75.0 [facility] CenterBsrdtttRCWUMAWTEC1335-63-94 04:23:00 Test Item Value Reference Range Interpretation Comments Lymphocytes (test code = Lymphocytes) 31.5 20.0-40.0 [facility] CenterQtfkiyqYWFJNXPNDU4589-52-56 04:23:00 Test Item Value Reference Range Interpretation Comments Neutrophils # (test code = Neutrophils 4.3 1.5-8.1 #) [facility] CenterPhvtictAVTIMHSCZV0386-05-33 04:23:00 Test Item Value Reference Range Interpretation Comments Basophils (test code = 0.6 See_Comment [Aut omated message] The Basophils) system which ge nerated this result tra nsmitted reference range : <=1.0. The reference r nilam was not used to int erpret this result as normal/abnormal . [facility] CenterSzaektxHBDLIUBVWQ0501-47-71 04:23:00 Test Item Value Reference Range Interpretation Comments Monocytes (test code = Monocytes) 6.7 2.0-12.0 [facility] CenterLhhmfhnRKMNGICTYB6593-02-21 04:23:00 Test Item Value Reference Range Interpretation Comments Eosinophils (test code = 2.5 See_Comment [A utomated message] The Eosinophils) system which ge nerated this result tra nsmitted reference range : <=4.0. The reference r nilam was not used to int erpret this result as normal/abnormal . [facility] CenterWnwbuopISJCRPICYI3214-88-27 04:23:00 Test Item Value Reference Range Interpretation Comments Eosinophils # (test code 0.2 See_Comment [A utomated message] The = Eosinophils #) system whic h generated this result tra nsmitted reference range : <=0.5. The reference r nilam was not used to int erpret this result as normal/abnormal . [facility] CenterXwbanppRLYIMCKQRC5560-41-59 04:23:00 Test Item Value Reference Range Interpretation Comments Monocytes # (test code 0.5 See_Comment [Aut omated message] The = Monocytes #) system which generated this result tra nsmitted reference range : <=0.8. The reference r nilam was not used to int erpret this result as normal/abnormal . [facility] + LH [id number] 00:00:00 Test Item Value Reference Range Interpretation Comments FOLLICLE STIM HORMONE (test code = 37.9 IU/L 2700) LUTEINIZING HORMONE (test code = 18.7 IU/L 2776) [id number] 00:00:00 Test Item Value Reference Range Interpretation Comments ESTRADIOL (test code = 2505) 17.5 PG/ML [id number] 00:00:00 Test Item Value Reference Range Interpretation Comments ESTRADIOL (test code = 2505) 17.5 PG/ML [facility] + LH [id number] 00:00:00 Test Item Value Reference Range Interpretation Comments FOLLICLE STIM HORMONE (test code = 37.9 IU/L 2700) LUTEINIZING HORMONE (test code = 18.7 IU/L 2776) [facility] + LH [id number] 00:00:00 Test Item Value Reference Range Interpretation Comments FOLLICLE STIM HORMONE (test code = 37.9 IU/L 2700) LUTEINIZING HORMONE (test code = 18.7 IU/L 2776) [id number] 00:00:00 Test Item Value Reference Range Interpretation Comments ESTRADIOL (test code = 2505) 17.5 PG/ML [id number] 00:00:00 Test Item Value Reference Range Interpretation Comments ESTRADIOL (test code = 2505) 17.5 PG/ML [id number] 00:00:00 Test Item Value Reference Range Interpretation Comments ESTRADIOL (test code = 2505) 17.5 PG/ML [id number] 00:00:00 Test Item Value Reference Range Interpretation Comments ESTRADIOL (test code = 2505) 17.5 PG/ML [facility] + LH [id number] 00:00:00 Test Item Value Reference Range Interpretation Comments FOLLICLE STIM HORMONE (test code = 37.9 IU/L 2700) LUTEINIZING HORMONE (test code = 18.7 IU/L 2776) [facility] + LH [id number] 00:00:00 Test Item Value Reference Range Interpretation Comments FOLLICLE STIM HORMONE (test code = 37.9 IU/L 2700) LUTEINIZING HORMONE (test code = 18.7 IU/L 2776) [id number] 00:00:00 Test Item Value Reference Range Interpretation Comments ESTRADIOL (test code = 2505) 17.5 PG/ML [id number] 00:00:00 Test Item Value Reference Range Interpretation Comments ESTRADIOL (test code = 2505) 17.5 PG/ML [id number] 00:00:00 Test Item Value Reference Range Interpretation Comments ESTRADIOL (test code = 2505) 17.5 PG/ML [facility] + LH [id number] 00:00:00 Test Item Value Reference Range Interpretation Comments FOLLICLE STIM HORMONE (test code = 37.9 IU/L 2700) LUTEINIZING HORMONE (test code = 18.7 IU/L 2776) [facility] + LH [id number] 00:00:00 Test Item Value Reference Range Interpretation Comments FOLLICLE STIM HORMONE (test code = 37.9 IU/L 2700) LUTEINIZING HORMONE (test code = 18.7 IU/L 2776) [id number] 00:00:00 Test Item Value Reference Range Interpretation Comments ESTRADIOL (test code = 2505) 17.5 PG/ML [id number] 00:00:00 Test Item Value Reference Range Interpretation Comments ESTRADIOL (test code = 2505) 17.5 PG/ML [id number] 00:00:00 Test Item Value Reference Range Interpretation Comments ESTRADIOL (test code = 2505) 17.5 PG/ML DRUG [id number] 22:01:00 Test Item Value Reference Range Interpretation Comments UDS Note (test code = See Note *NA*(10/31/17 UDS Note) 5:01 PM) [facility]annDR[facility] [id number] 22:01:00 Test Item Value Reference Range Interpretation Comments U Phencyclidine Scr (test Negative *NA*(10/31/17 code = U Phencyclidine 5:01 PM) Scr) [facility]annDR[facility] [id number] 22:01:00 Test Item Value Reference Range Interpretation Comments U Opiate Scr (test Negative *NA*(10/31/17 code = U Opiate Scr) 5:01 PM) [facility] [id number] 22:01:00 Test Item Value Reference Range Interpretation Comments U Cannab Scr (test Negative *NA*(10/31/17 code = U Cannab Scr) 5:01 PM) [facility] [id number] 22:01:00 Test Item Value Reference Range Interpretation Comments U Indu Scr (test code Negative *NA*(10/31/17 = U Indu Scr) 5:01 PM) [facility] [id number] 22:01:00 Test Item Value Reference Range Interpretation Comments U Amph Scr (test code Negative *NA*(10/31/17 = U Amph Scr) 5:01 PM) [facility] [id number] 22:01:00 Test Item Value Reference Range Interpretation Comments U Cocaine Scr (test Negative *NA*(10/31/17 code = U Cocaine Scr) 5:01 PM) [facility] [id number] 22:01:00 Test Item Value Reference Range Interpretation Comments U Benzodiaz Scr (test Negative *NA*(10/31/17 code = U Benzodiaz Scr) 5:01 PM) [facility] AND [id number] 22:01:00 Test Item Value Reference Range Interpretation Comments UA CaOx Judy (test code = UA Moderate /HPF CaOx Judy) [facility] AND [id number] 22:01:00 Test Item Value Reference Range Interpretation Comments UA Bacteria (test code = UA Moderate /HPF Bacteria) [facility] AND [id number] 22:01:00 Test Item Value Reference Range Interpretation Comments UA Mucus (test code = UA Mucus) Few /LPF [facility] AND [id number] 22:01:00 Test Item Value Reference Range Interpretation Comments UA WBC (test code = 7 See_Comment [Automa kuldip message] The UA WBC) system which ge nerated this result transmit kuldip reference range : <=5. The reference range was not used to interpr et this result as abiodun l/abnormal. [facility] AND [id number] 22:01:00 Test Item Value Reference Range Interpretation Comments UA RBC (test code = 3 See_Comment [Automa kuldip message] The UA RBC) system which ge nerated this result transmit kuldip reference range : <=2. The reference range was not used to interpr et this result as abiodun l/abnormal. [facility] AND [id number] 22:01:00 Test Item Value Reference Range Interpretation Comments UA Sq Epi (test code = UA Sq Epi) Few /LPF [facility] AND [id number] 22:01:00 Test Item Value Reference Range Interpretation Comments UA Leuk Est (test Negative (10/31/17 5:01 code = UA Leuk Est) PM) [facility] AND [id number] 22:01:00 Test Item Value Reference Range Interpretation Comments UA Urobilinogen (test code = UA 4.0 0.1-1.0 Urobilinogen) [facility] AND [id number] 22:01:00 Test Item Value Reference Range Interpretation Comments UA Nitrite (test code Negative (10/31/17 5:01 = UA Nitrite) PM) [facility] AND [id number] 22:01:00 Test Item Value Reference Range Interpretation Comments UA Ketones (test code = UA Ketones) 20 mg/dL [facility] [id number] 22:01:00 Test Item Value Reference Range Interpretation Comments UA Glucose (test code = UA Negative mg/dL Glucose) [facility] [id number] 22:01:00 Test Item Value Reference Range Interpretation Comments UA Turbidity (test code Slight *ABN*(10/31/17 = UA Turbidity) 5:01 PM) [facility] [id number] 22:01:00 Test Item Value Reference Range Interpretation Comments UA Color (test code = Yellow *NA*(10/31/17 5:01 UA Color) PM) [facility] [id number] 22:01:00 Test Item Value Reference Range Interpretation Comments UA Blood (test code = Negative (10/31/17 5:01 UA Blood) PM) [facility] [id number] 22:01:00 Test Item Value Reference Range Interpretation Comments UA Bili (test code = Negative *NA*(10/31/17 UA Bili) 5:01 PM) [facility] [id number] 22:01:00 Test Item Value Reference Range Interpretation Comments UA Protein (test code = UA Negative mg/dL Protein) [facility] [id number] 22:01:00 Test Item Value Reference Range Interpretation Comments UA pH (test code = UA pH) 6.0 1 5.0-8.0 [facility] [id number] 22:01:00 Test Item Value Reference Range Interpretation Comments UA Spec Grav (test code = UA Spec 1.014 1 Grav) [facility] [id number] 22:01:00 Test Item Value Reference Range Interpretation Comments Culture: Urine (test 50,000 - 100,000 code = Culture: Urine) CFU/mL [facility] [id number] 22:01:00 Test Item Value Reference Range Interpretation Comments UDS Note (test code = See Note *NA*(10/31/17 UDS Note) 5:01 PM) [facility] [id number] 22:01:00 Test Item Value Reference Range Interpretation Comments U Phencyclidine Scr (test Negative *NA*(10/31/17 code = U Phencyclidine 5:01 PM) Scr) [facility] [id number] 22:01:00 Test Item Value Reference Range Interpretation Comments U Opiate Scr (test Negative *NA*(10/31/17 code = U Opiate Scr) 5:01 PM) [facility] [id number] 22:01:00 Test Item Value Reference Range Interpretation Comments U Cannab Scr (test Negative *NA*(10/31/17 code = U Cannab Scr) 5:01 PM) [facility] [id number] 22:01:00 Test Item Value Reference Range Interpretation Comments U Indu Scr (test code Negative *NA*(10/31/17 = U Indu Scr) 5:01 PM) [facility] [id number] 22:01:00 Test Item Value Reference Range Interpretation Comments U Amph Scr (test code Negative *NA*(10/31/17 = U Amph Scr) 5:01 PM) [facility] [id number] 22:01:00 Test Item Value Reference Range Interpretation Comments U Cocaine Scr (test Negative *NA*(10/31/17 code = U Cocaine Scr) 5:01 PM) [facility] [id number] 22:01:00 Test Item Value Reference Range Interpretation Comments U Benzodiaz Scr (test Negative *NA*(10/31/17 code = U Benzodiaz Scr) 5:01 PM) [facility] [id number] 22:01:00 Test Item Value Reference Range Interpretation Comments UA CaOx Judy (test code = UA Moderate /HPF CaOx Judy) [facility] [id number] 22:01:00 Test Item Value Reference Range Interpretation Comments UA Bacteria (test code = UA Moderate /HPF Bacteria) [facility] [id number] 22:01:00 Test Item Value Reference Range Interpretation Comments UA Mucus (test code = UA Mucus) Few /LPF [facility] [id number] 22:01:00 Test Item Value Reference Range Interpretation Comments UA WBC (test code = 7 See_Comment [Automa kuldip message] The UA WBC) system which ge nerated this result transmit kuldip reference range : <=5. The reference range was not used to interpr et this result as abiodun l/abnormal. [facility] [id number] 22:01:00 Test Item Value Reference Range Interpretation Comments UA RBC (test code = 3 See_Comment [Automa kuldip message] The UA RBC) system which ge nerated this result transmit kuldip reference range : <=2. The reference range was not used to interpr et this result as abiodun l/abnormal. [facility] AND [id number] 22:01:00 Test Item Value Reference Range Interpretation Comments UA Sq Epi (test code = UA Sq Epi) Few /LPF [facility] AND [id number] 22:01:00 Test Item Value Reference Range Interpretation Comments UA Leuk Est (test Negative (10/31/17 5:01 code = UA Leuk Est) PM) [facility] AND [id number] 22:01:00 Test Item Value Reference Range Interpretation Comments UA Urobilinogen (test code = UA 4.0 0.1-1.0 Urobilinogen) [facility] AND [id number] 22:01:00 Test Item Value Reference Range Interpretation Comments UA Nitrite (test code Negative (10/31/17 5:01 = UA Nitrite) PM) [facility] AND [id number] 22:01:00 Test Item Value Reference Range Interpretation Comments UA Ketones (test code = UA Ketones) 20 mg/dL [facility] AND [id number] 22:01:00 Test Item Value Reference Range Interpretation Comments UA Glucose (test code = UA Negative mg/dL Glucose) [facility] AND [id number] 22:01:00 Test Item Value Reference Range Interpretation Comments UA Turbidity (test code Slight *ABN*(10/31/17 = UA Turbidity) 5:01 PM) [facility] AND [id number] 22:01:00 Test Item Value Reference Range Interpretation Comments UA Color (test code = Yellow *NA*(10/31/17 5:01 UA Color) PM) [facility] AND [id number] 22:01:00 Test Item Value Reference Range Interpretation Comments UA Blood (test code = Negative (10/31/17 5:01 UA Blood) PM) [facility] AND [id number] 22:01:00 Test Item Value Reference Range Interpretation Comments UA Bili (test code = Negative *NA*(10/31/17 UA Bili) 5:01 PM) [facility] [id number] 22:01:00 Test Item Value Reference Range Interpretation Comments UA Protein (test code = UA Negative mg/dL Protein) [facility] [id number] 22:01:00 Test Item Value Reference Range Interpretation Comments UA pH (test code = UA pH) 6.0 1 5.0-8.0 [facility] [id number] 22:01:00 Test Item Value Reference Range Interpretation Comments UA Spec Grav (test code = UA Spec 1.014 1 Grav) [facility] [id number] 22:01:00 Test Item Value Reference Range Interpretation Comments Culture: Urine (test 50,000 - 100,000 code = Culture: Urine) CFU/mL Skin [facility] [id number] 22:01:00 Test Item Value Reference Range Interpretation Comments UDS Note (test code = See Note *NA*(10/31/17 UDS Note) 5:01 PM) [facility] [id number] 22:01:00 Test Item Value Reference Range Interpretation Comments U Phencyclidine Scr (test Negative *NA*(10/31/17 code = U Phencyclidine 5:01 PM) Scr) [facility] [id number] 22:01:00 Test Item Value Reference Range Interpretation Comments U Opiate Scr (test Negative *NA*(10/31/17 code = U Opiate Scr) 5:01 PM) [facility] [id number] 22:01:00 Test Item Value Reference Range Interpretation Comments U Cannab Scr (test Negative *NA*(10/31/17 code = U Cannab Scr) 5:01 PM) [facility] [id number] 22:01:00 Test Item Value Reference Range Interpretation Comments U Indu Scr (test code Negative *NA*(10/31/17 = U Indu Scr) 5:01 PM) [facility] [id number] 22:01:00 Test Item Value Reference Range Interpretation Comments U Amph Scr (test code Negative *NA*(10/31/17 = U Amph Scr) 5:01 PM) [facility] [id number] 22:01:00 Test Item Value Reference Range Interpretation Comments U Cocaine Scr (test Negative *NA*(10/31/17 code = U Cocaine Scr) 5:01 PM) [facility] [id number] 22:01:00 Test Item Value Reference Range Interpretation Comments U Benzodiaz Scr (test Negative *NA*(10/31/17 code = U Benzodiaz Scr) 5:01 PM) [facility] [id number] 22:01:00 Test Item Value Reference Range Interpretation Comments UA CaOx Judy (test code = UA Moderate /HPF CaOx Judy) [facility] [id number] 22:01:00 Test Item Value Reference Range Interpretation Comments UA Bacteria (test code = UA Moderate /HPF Bacteria) [facility] [id number] 22:01:00 Test Item Value Reference Range Interpretation Comments UA Mucus (test code = UA Mucus) Few /LPF [facility] [id number] 22:01:00 Test Item Value Reference Range Interpretation Comments UA WBC (test code = 7 See_Comment [Automa kuldip message] The UA WBC) system which ge nerated this result transmit kuldip reference range : <=5. The reference range was not used to interpr et this result as abiodun l/abnormal. [facility] [id number] 22:01:00 Test Item Value Reference Range Interpretation Comments UA RBC (test code = 3 See_Comment [Automa kuldip message] The UA RBC) system which ge nerated this result transmit kuldip reference range : <=2. The reference range was not used to interpr et this result as abiodun l/abnormal. [facility] [id number] 22:01:00 Test Item Value Reference Range Interpretation Comments UA Sq Epi (test code = UA Sq Epi) Few /LPF [facility] [id number] 22:01:00 Test Item Value Reference Range Interpretation Comments UA Leuk Est (test Negative (10/31/17 5:01 code = UA Leuk Est) PM) [facility] [id number] 22:01:00 Test Item Value Reference Range Interpretation Comments UA Urobilinogen (test code = UA 4.0 0.1-1.0 Urobilinogen) [facility] [id number] 22:01:00 Test Item Value Reference Range Interpretation Comments UA Nitrite (test code Negative (10/31/17 5:01 = UA Nitrite) PM) [facility] AND [id number] 22:01:00 Test Item Value Reference Range Interpretation Comments UA Ketones (test code = UA Ketones) 20 mg/dL [facility] AND [id number] 22:01:00 Test Item Value Reference Range Interpretation Comments UA Glucose (test code = UA Negative mg/dL Glucose) [facility] AND [id number] 22:01:00 Test Item Value Reference Range Interpretation Comments UA Turbidity (test code Slight *ABN*(10/31/17 = UA Turbidity) 5:01 PM) [facility] AND [id number] 22:01:00 Test Item Value Reference Range Interpretation Comments UA Color (test code = Yellow *NA*(10/31/17 5:01 UA Color) PM) [facility] AND [id number] 22:01:00 Test Item Value Reference Range Interpretation Comments UA Blood (test code = Negative (10/31/17 5:01 UA Blood) PM) [facility] AND [id number] 22:01:00 Test Item Value Reference Range Interpretation Comments UA Bili (test code = Negative *NA*(10/31/17 UA Bili) 5:01 PM) [facility] AND [id number] 22:01:00 Test Item Value Reference Range Interpretation Comments UA Protein (test code = UA Negative mg/dL Protein) [facility] AND [id number] 22:01:00 Test Item Value Reference Range Interpretation Comments UA pH (test code = UA pH) 6.0 1 5.0-8.0 [facility] AND [id number] 22:01:00 Test Item Value Reference Range Interpretation Comments UA Spec Grav (test code = UA Spec 1.014 1 Grav) [facility] [id number] 22:01:00 Test Item Value Reference Range Interpretation Comments Culture: Urine (test 50,000 - 100,000 code = Culture: Urine) CFU/mL Skin [facility] [id number] 22:01:00 Test Item Value Reference Range Interpretation Comments UDS Note (test code = See Note *NA*(10/31/17 UDS Note) 5:01 PM) [facility] [id number] 22:01:00 Test Item Value Reference Range Interpretation Comments U Phencyclidine Scr (test Negative *NA*(10/31/17 code = U Phencyclidine 5:01 PM) Scr) [facility] [id number] 22:01:00 Test Item Value Reference Range Interpretation Comments U Opiate Scr (test Negative *NA*(10/31/17 code = U Opiate Scr) 5:01 PM) [facility] [id number] 22:01:00 Test Item Value Reference Range Interpretation Comments U Cannab Scr (test Negative *NA*(10/31/17 code = U Cannab Scr) 5:01 PM) [facility] [id number] 22:01:00 Test Item Value Reference Range Interpretation Comments U Indu Scr (test code Negative *NA*(10/31/17 = U Indu Scr) 5:01 PM) [facility] [id number] 22:01:00 Test Item Value Reference Range Interpretation Comments U Amph Scr (test code Negative *NA*(10/31/17 = U Amph Scr) 5:01 PM) [facility] [id number] 22:01:00 Test Item Value Reference Range Interpretation Comments U Cocaine Scr (test Negative *NA*(10/31/17 code = U Cocaine Scr) 5:01 PM) [facility] [id number] 22:01:00 Test Item Value Reference Range Interpretation Comments U Benzodiaz Scr (test Negative *NA*(10/31/17 code = U Benzodiaz Scr) 5:01 PM) [facility] [id number] 22:01:00 Test Item Value Reference Range Interpretation Comments UA CaOx Judy (test code = UA Moderate /HPF CaOx Judy) [facility] [id number] 22:01:00 Test Item Value Reference Range Interpretation Comments UA Bacteria (test code = UA Moderate /HPF Bacteria) [facility] [id number] 22:01:00 Test Item Value Reference Range Interpretation Comments UA Mucus (test code = UA Mucus) Few /LPF [facility] [id number] 22:01:00 Test Item Value Reference Range Interpretation Comments UA WBC (test code = 7 See_Comment [Automa kuldip message] The UA WBC) system which ge nerated this result transmit kuldip reference range : <=5. The reference range was not used to interpr et this result as abiodun l/abnormal. [facility] AND [id number] 22:01:00 Test Item Value Reference Range Interpretation Comments UA RBC (test code = 3 See_Comment [Automa kuldip message] The UA RBC) system which ge nerated this result transmit kuldip reference range : <=2. The reference range was not used to interpr et this result as abiodun l/abnormal. [facility] AND [id number] 22:01:00 Test Item Value Reference Range Interpretation Comments UA Sq Epi (test code = UA Sq Epi) Few /LPF [facility] AND [id number] 22:01:00 Test Item Value Reference Range Interpretation Comments UA Leuk Est (test Negative (10/31/17 5:01 code = UA Leuk Est) PM) [facility] AND [id number] 22:01:00 Test Item Value Reference Range Interpretation Comments UA Urobilinogen (test code = UA 4.0 0.1-1.0 Urobilinogen) [facility] AND [id number] 22:01:00 Test Item Value Reference Range Interpretation Comments UA Nitrite (test code Negative (10/31/17 5:01 = UA Nitrite) PM) [facility] AND [id number] 22:01:00 Test Item Value Reference Range Interpretation Comments UA Ketones (test code = UA Ketones) 20 mg/dL [facility] AND [id number] 22:01:00 Test Item Value Reference Range Interpretation Comments UA Glucose (test code = UA Negative mg/dL Glucose) [facility] AND [id number] 22:01:00 Test Item Value Reference Range Interpretation Comments UA Turbidity (test code Slight *ABN*(10/31/17 = UA Turbidity) 5:01 PM) [facility] AND [id number] 22:01:00 Test Item Value Reference Range Interpretation Comments UA Color (test code = Yellow *NA*(10/31/17 5:01 UA Color) PM) [facility] [id number] 22:01:00 Test Item Value Reference Range Interpretation Comments UA Blood (test code = Negative (10/31/17 5:01 UA Blood) PM) [facility] [id number] 22:01:00 Test Item Value Reference Range Interpretation Comments UA Bili (test code = Negative *NA*(10/31/17 UA Bili) 5:01 PM) [facility] [id number] 22:01:00 Test Item Value Reference Range Interpretation Comments UA Protein (test code = UA Negative mg/dL Protein) [facility] [id number] 22:01:00 Test Item Value Reference Range Interpretation Comments UA pH (test code = UA pH) 6.0 1 5.0-8.0 [facility] [id number] 22:01:00 Test Item Value Reference Range Interpretation Comments UA Spec Grav (test code = UA Spec 1.014 1 Grav) [facility] [id number] 22:01:00 Test Item Value Reference Range Interpretation Comments Culture: Urine (test 50,000 - 100,000 code = Culture: Urine) CFU/mL Skin [facility] [id number] 22:01:00 Test Item Value Reference Range Interpretation Comments UDS Note (test code = See Note *NA*(10/31/17 UDS Note) 5:01 PM) [facility] [id number] 22:01:00 Test Item Value Reference Range Interpretation Comments U Phencyclidine Scr (test Negative *NA*(10/31/17 code = U Phencyclidine 5:01 PM) Scr) [facility] [id number] 22:01:00 Test Item Value Reference Range Interpretation Comments U Opiate Scr (test Negative *NA*(10/31/17 code = U Opiate Scr) 5:01 PM) [facility] [id number] 22:01:00 Test Item Value Reference Range Interpretation Comments U Cannab Scr (test Negative *NA*(10/31/17 code = U Cannab Scr) 5:01 PM) [facility] [id number] 22:01:00 Test Item Value Reference Range Interpretation Comments U Indu Scr (test code Negative *NA*(10/31/17 = U Indu Scr) 5:01 PM) [facility] [id number] 22:01:00 Test Item Value Reference Range Interpretation Comments U Amph Scr (test code Negative *NA*(10/31/17 = U Amph Scr) 5:01 PM) [facility] [id number] 22:01:00 Test Item Value Reference Range Interpretation Comments U Cocaine Scr (test Negative *NA*(10/31/17 code = U Cocaine Scr) 5:01 PM) [facility] [id number] 22:01:00 Test Item Value Reference Range Interpretation Comments U Benzodiaz Scr (test Negative *NA*(10/31/17 code = U Benzodiaz Scr) 5:01 PM) [facility] [id number] 22:01:00 Test Item Value Reference Range Interpretation Comments UA CaOx Judy (test code = UA Moderate /HPF CaOx Judy) [facility] [id number] 22:01:00 Test Item Value Reference Range Interpretation Comments UA Bacteria (test code = UA Moderate /HPF Bacteria) [facility] [id number] 22:01:00 Test Item Value Reference Range Interpretation Comments UA Mucus (test code = UA Mucus) Few /LPF [facility] [id number] 22:01:00 Test Item Value Reference Range Interpretation Comments UA WBC (test code = 7 See_Comment [Automa kuldip message] The UA WBC) system which ge nerated this result transmit kuldip reference range : <=5. The reference range was not used to interpr et this result as abiodun l/abnormal. [facility] [id number] 22:01:00 Test Item Value Reference Range Interpretation Comments UA RBC (test code = 3 See_Comment [Automa kuldip message] The UA RBC) system which ge nerated this result transmit kuldip reference range : <=2. The reference range was not used to interpr et this result as abiodun l/abnormal. [facility] [id number] 22:01:00 Test Item Value Reference Range Interpretation Comments UA Sq Epi (test code = UA Sq Epi) Few /LPF [facility] [id number] 22:01:00 Test Item Value Reference Range Interpretation Comments UA Leuk Est (test Negative (10/31/17 5:01 code = UA Leuk Est) PM) [facility] AND [id number] 22:01:00 Test Item Value Reference Range Interpretation Comments UA Urobilinogen (test code = UA 4.0 0.1-1.0 Urobilinogen) [facility] AND [id number] 22:01:00 Test Item Value Reference Range Interpretation Comments UA Nitrite (test code Negative (10/31/17 5:01 = UA Nitrite) PM) [facility] AND [id number] 22:01:00 Test Item Value Reference Range Interpretation Comments UA Ketones (test code = UA Ketones) 20 mg/dL [facility] AND [id number] 22:01:00 Test Item Value Reference Range Interpretation Comments UA Glucose (test code = UA Negative mg/dL Glucose) [facility] AND [id number] 22:01:00 Test Item Value Reference Range Interpretation Comments UA Turbidity (test code Slight *ABN*(10/31/17 = UA Turbidity) 5:01 PM) [facility] AND [id number] 22:01:00 Test Item Value Reference Range Interpretation Comments UA Color (test code = Yellow *NA*(10/31/17 5:01 UA Color) PM) [facility] AND [id number] 22:01:00 Test Item Value Reference Range Interpretation Comments UA Blood (test code = Negative (10/31/17 5:01 UA Blood) PM) [facility] AND [id number] 22:01:00 Test Item Value Reference Range Interpretation Comments UA Bili (test code = Negative *NA*(10/31/17 UA Bili) 5:01 PM) [facility] AND [id number] 22:01:00 Test Item Value Reference Range Interpretation Comments UA Protein (test code = UA Negative mg/dL Protein) [facility] AND [id number] 22:01:00 Test Item Value Reference Range Interpretation Comments UA pH (test code = UA pH) 6.0 1 5.0-8.0 [facility] AND [id number] 22:01:00 Test Item Value Reference Range Interpretation Comments UA Spec Grav (test code = UA Spec 1.014 1 Grav) [facility]: [id number] 22:01:00 Test Item Value Reference Range Interpretation Comments Culture: Urine (test 50,000 - 100,000 code = Culture: Urine) CFU/mL Skin [facility] [id number] 22:01:00 Test Item Value Reference Range Interpretation Comments UDS Note (test code = See Note *NA*(10/31/17 UDS Note) 5:01 PM) [facility] [id number] 22:01:00 Test Item Value Reference Range Interpretation Comments U Phencyclidine Scr (test Negative *NA*(10/31/17 code = U Phencyclidine 5:01 PM) Scr) [facility] [id number] 22:01:00 Test Item Value Reference Range Interpretation Comments U Opiate Scr (test Negative *NA*(10/31/17 code = U Opiate Scr) 5:01 PM) [facility] [id number] 22:01:00 Test Item Value Reference Range Interpretation Comments U Cannab Scr (test Negative *NA*(10/31/17 code = U Cannab Scr) 5:01 PM) [facility] [id number] 22:01:00 Test Item Value Reference Range Interpretation Comments U Indu Scr (test code Negative *NA*(10/31/17 = U Indu Scr) 5:01 PM) [facility] [id number] 22:01:00 Test Item Value Reference Range Interpretation Comments U Amph Scr (test code Negative *NA*(10/31/17 = U Amph Scr) 5:01 PM) [facility] [id number] 22:01:00 Test Item Value Reference Range Interpretation Comments U Cocaine Scr (test Negative *NA*(10/31/17 code = U Cocaine Scr) 5:01 PM) [facility] [id number] [facility]:01:00 Test Item Value Reference Range Interpretation Comments U Benzodiaz Scr (test Negative *NA*(10/31/17 code = U Benzodiaz Scr) 5:01 PM) [facility] [id number] 22:01:00 Test Item Value Reference Range Interpretation Comments UA CaOx Judy (test code = UA Moderate /HPF CaOx Judy) [facility] AND [id number] 22:01:00 Test Item Value Reference Range Interpretation Comments UA Bacteria (test code = UA Moderate /HPF Bacteria) [facility] AND [id number] 22:01:00 Test Item Value Reference Range Interpretation Comments UA Mucus (test code = UA Mucus) Few /LPF [facility] AND [id number] 22:01:00 Test Item Value Reference Range Interpretation Comments UA WBC (test code = 7 See_Comment [Automa kuldip message] The UA WBC) system which ge nerated this result transmit kuldip reference range : <=5. The reference range was not used to interpr et this result as abiodun l/abnormal. [facility] AND [id number] 22:01:00 Test Item Value Reference Range Interpretation Comments UA RBC (test code = 3 See_Comment [Automa kuldip message] The UA RBC) system which ge nerated this result transmit kuldip reference range : <=2. The reference range was not used to interpr et this result as abiodun l/abnormal. [facility] AND [id number] 22:01:00 Test Item Value Reference Range Interpretation Comments UA Sq Epi (test code = UA Sq Epi) Few /LPF [facility] AND [id number] 22:01:00 Test Item Value Reference Range Interpretation Comments UA Leuk Est (test Negative (10/31/17 5:01 code = UA Leuk Est) PM) [facility] AND [id number] 22:01:00 Test Item Value Reference Range Interpretation Comments UA Urobilinogen (test code = UA 4.0 0.1-1.0 Urobilinogen) [facility] AND [id number] 22:01:00 Test Item Value Reference Range Interpretation Comments UA Nitrite (test code Negative (10/31/17 5:01 = UA Nitrite) PM) [facility] AND [id number] 22:01:00 Test Item Value Reference Range Interpretation Comments UA Ketones (test code = UA Ketones) 20 mg/dL [facility] AND [id number] 22:01:00 Test Item Value Reference Range Interpretation Comments UA Glucose (test code = UA Negative mg/dL Glucose) [facility] AND [id number] 22:01:00 Test Item Value Reference Range Interpretation Comments UA Turbidity (test code Slight *ABN*(10/31/17 = UA Turbidity) 5:01 PM) [facility] [id number] 22:01:00 Test Item Value Reference Range Interpretation Comments UA Color (test code = Yellow *NA*(10/31/17 5:01 UA Color) PM) [facility] [id number] 22:01:00 Test Item Value Reference Range Interpretation Comments UA Blood (test code = Negative (10/31/17 5:01 UA Blood) PM) [facility] [id number] 22:01:00 Test Item Value Reference Range Interpretation Comments UA Bili (test code = Negative *NA*(10/31/17 UA Bili) 5:01 PM) [facility] [id number] 22:01:00 Test Item Value Reference Range Interpretation Comments UA Protein (test code = UA Negative mg/dL Protein) [facility] [id number] 22:01:00 Test Item Value Reference Range Interpretation Comments UA pH (test code = UA pH) 6.0 1 5.0-8.0 [facility] [id number] 22:01:00 Test Item Value Reference Range Interpretation Comments UA Spec Grav (test code = UA Spec 1.014 1 Grav) [facility] [id number] 22:01:00 Test Item Value Reference Range Interpretation Comments Culture: Urine (test 50,000 - 100,000 code = Culture: Urine) CFU/mL [facility] [id number] 22:01:00 Test Item Value Reference Range Interpretation Comments UDS Note (test code = See Note *NA*(10/31/17 UDS Note) 5:01 PM) [facility] [id number] 22:01:00 Test Item Value Reference Range Interpretation Comments U Phencyclidine Scr (test Negative *NA*(10/31/17 code = U Phencyclidine 5:01 PM) Scr) [facility] [id number] 22:01:00 Test Item Value Reference Range Interpretation Comments U Opiate Scr (test Negative *NA*(10/31/17 code = U Opiate Scr) 5:01 PM) [facility] [id number] 22:01:00 Test Item Value Reference Range Interpretation Comments U Cannab Scr (test Negative *NA*(10/31/17 code = U Cannab Scr) 5:01 PM) [facility] [id number] 22:01:00 Test Item Value Reference Range Interpretation Comments U Indu Scr (test code Negative *NA*(10/31/17 = U Indu Scr) 5:01 PM) [facility] [id number] 22:01:00 Test Item Value Reference Range Interpretation Comments U Amph Scr (test code Negative *NA*(10/31/17 = U Amph Scr) 5:01 PM) [facility] [id number] 22:01:00 Test Item Value Reference Range Interpretation Comments U Cocaine Scr (test Negative *NA*(10/31/17 code = U Cocaine Scr) 5:01 PM) [facility] [id number] 22:01:00 Test Item Value Reference Range Interpretation Comments U Benzodiaz Scr (test Negative *NA*(10/31/17 code = U Benzodiaz Scr) 5:01 PM) [facility] [id number] 22:01:00 Test Item Value Reference Range Interpretation Comments UA CaOx Judy (test code = UA Moderate /HPF CaOx Judy) [facility] [id number] 22:01:00 Test Item Value Reference Range Interpretation Comments UA Bacteria (test code = UA Moderate /HPF Bacteria) [facility] [id number] 22:01:00 Test Item Value Reference Range Interpretation Comments UA Mucus (test code = UA Mucus) Few /LPF [facility] [id number] 22:01:00 Test Item Value Reference Range Interpretation Comments UA WBC (test code = 7 See_Comment [Automa kuldip message] The UA WBC) system which ge nerated this result transmit kuldip reference range : <=5. The reference range was not used to interpr et this result as abiodun l/abnormal. [facility] [id number] 22:01:00 Test Item Value Reference Range Interpretation Comments UA RBC (test code = 3 See_Comment [Automa kuldip message] The UA RBC) system which ge nerated this result transmit kuldip reference range : <=2. The reference range was not used to interpr et this result as abiodun l/abnormal. [facility] AND [id number] 22:01:00 Test Item Value Reference Range Interpretation Comments UA Sq Epi (test code = UA Sq Epi) Few /LPF [facility] AND [id number] 22:01:00 Test Item Value Reference Range Interpretation Comments UA Leuk Est (test Negative (10/31/17 5:01 code = UA Leuk Est) PM) [facility] AND [id number] 22:01:00 Test Item Value Reference Range Interpretation Comments UA Urobilinogen (test code = UA 4.0 0.1-1.0 Urobilinogen) [facility] AND [id number] 22:01:00 Test Item Value Reference Range Interpretation Comments UA Nitrite (test code Negative (10/31/17 5:01 = UA Nitrite) PM) [facility] AND [id number] 22:01:00 Test Item Value Reference Range Interpretation Comments UA Ketones (test code = UA Ketones) 20 mg/dL [facility] AND [id number] 22:01:00 Test Item Value Reference Range Interpretation Comments UA Glucose (test code = UA Negative mg/dL Glucose) [facility] AND [id number] 22:01:00 Test Item Value Reference Range Interpretation Comments UA Turbidity (test code Slight *ABN*(10/31/17 = UA Turbidity) 5:01 PM) [facility] AND [id number] 22:01:00 Test Item Value Reference Range Interpretation Comments UA Color (test code = Yellow *NA*(10/31/17 5:01 UA Color) PM) [facility] AND [id number] 22:01:00 Test Item Value Reference Range Interpretation Comments UA Blood (test code = Negative (10/31/17 5:01 UA Blood) PM) [facility] AND [id number] 22:01:00 Test Item Value Reference Range Interpretation Comments UA Bili (test code = Negative *NA*(10/31/17 UA Bili) 5:01 PM) [facility] AND [id number] 22:01:00 Test Item Value Reference Range Interpretation Comments UA Protein (test code = UA Negative mg/dL Protein) [facility] AND [id number] 22:01:00 Test Item Value Reference Range Interpretation Comments UA pH (test code = UA pH) 6.0 1 5.0-8.0 [facility] AND [id number] 22:01:00 Test Item Value Reference Range Interpretation Comments UA Spec Grav (test code = UA Spec 1.014 1 Grav) [facility] [id number] 22:01:00 Test Item Value Reference Range Interpretation Comments Culture: Urine (test 50,000 - 100,000 code = Culture: Urine) CFU/mL Skin [facility] [id number] 20:27:00 Test Item Value Reference Range Interpretation Comments Total CK (test code = Total CK) 110 12-191 [facility] [id number] 20:27:00 Test Item Value Reference Range Interpretation Comments Troponin-I (test code no gt See_Comment [Auto mated message] The = Troponin-I) system which g enerated this result transmit kuldip reference range : <=0.40. The reference r nilam was not used to interpr et this result as abiodun l/abnormal. [id number] 20:27:00 Test Item Value Reference Range Interpretation Comments AGAP (test code = AGAP) 12.4 10.0-20.0 [facility] Re[id number] 20:27:00 Test Item Value Reference Range Interpretation Comments eGFR (test code = eGFR) 84 [facility] RegionDsujakwIQTVCGPYINGJ6469-16-56 20:27:00 Test Item Value Reference Range Interpretation Comments Calcium Lvl (test code = Calcium Lvl) 10.3 8.5-10.5 [facility] RegionDqqihjrTTCYAXCHFINX8268-17-98 20:27:00 Test Item Value Reference Range Interpretation Comments Creatinine Lvl (test code = Creatinine 0.96 0.50-1.40 Lvl) [facility] RegionUhutubiEZUVZBIMBLKN5808-12-11 20:27:00 Test Item Value Reference Range Interpretation Comments Potassium Lvl (test code = Potassium 3.4 3.5-5.1 Lvl) [facility] RegionObalcbdRGWDLEZXDXSQ0369-03-19 20:27:00 Test Item Value Reference Range Interpretation Comments BUN (test code = BUN) 9 7-22 [facility] RegionGqtgkxeGMNXUKCBEOKJ8168-87-00 20:27:00 Test Item Value Reference Range Interpretation Comments Glucose Lvl (test code = Glucose Lvl) 96 70-99 [facility] RegionNlqjbugYJUKCWTBRIKU0168-97-20 20:27:00 Test Item Value Reference Range Interpretation Comments Sodium Lvl (test code = Sodium Lvl) 139 135-145 [facility] RegionHcffmkbMERHTVWHEEHF4206-55-18 20:27:00 Test Item Value Reference Range Interpretation Comments Chloride Lvl (test code = Chloride Lvl) 102 95-109 [facility] RegionAgfpjbaIYXEVAZHYSYF1698-27-32 20:27:00 Test Item Value Reference Range Interpretation Comments CO2 (test code = CO2) 28 24-32 [place] [id number] 20:27:00 Test Item Value Reference Range Interpretation Comments S Preg (test code = S Negative *NA*(10/31/17 Preg) 3:27 PM) [facility] CenterWddocltFUFXIQZEIB7116-93-15 20:27:00 Test Item Value Reference Range Interpretation Comments Lymphocytes (test code = Lymphocytes) 18.7 20.0-40.0 [facility] CenterMchxsszXRVAGXHWEW1794-83-22 20:27:00 Test Item Value Reference Range Interpretation Comments Monocytes (test code = Monocytes) 9.1 2.0-12.0 [facility] CenterVeiifyfNGSVANJCMO5306-07-83 20:27:00 Test Item Value Reference Range Interpretation Comments Neutrophils # (test code = Neutrophils 6.6 1.5-8.1 #) [facility] CenterApgzyalFWIWYAXFPW0972-85-79 20:27:00 Test Item Value Reference Range Interpretation Comments Lymphocytes # (test code = Lymphocytes 1.8 1.0-5.5 #) [facility] CenterSghgbbzIVIJYAFPDG5305-69-88 20:27:00 Test Item Value Reference Range Interpretation Comments Segs (test code = Segs) 70.6 45.0-75.0 [facility] CenterSarhuhuKTTLITFHXN3154-78-91 20:27:00 Test Item Value Reference Range Interpretation Comments Eosinophils (test code = 1.3 See_Comment [A utomated message] The Eosinophils) system which ge nerated this result tra nsmitted reference range : <=4.0. The reference r nilam was not used to int erpret this result as normal/abnormal . [facility] CenterLbmgrdvYJQMHWBESS4933-43-27 20:27:00 Test Item Value Reference Range Interpretation Comments Basophils (test code = 0.3 See_Comment [Aut omated message] The Basophils) system which ge nerated this result tra nsmitted reference range : <=1.0. The reference r nilam was not used to int erpret this result as normal/abnormal . [facility] CenterKujeocpTNXSVWQNGG8402-37-56 20:27:00 Test Item Value Reference Range Interpretation Comments Monocytes # (test code 0.9 See_Comment [Aut omated message] The = Monocytes #) system which generated this result tra nsmitted reference range : <=0.8. The reference r nilam was not used to int erpret this result as normal/abnormal . [facility] CenterZnrxhssUPXPDAGRCY7837-81-17 20:27:00 Test Item Value Reference Range Interpretation Comments Eosinophils # (test code 0.1 See_Comment [A utomated message] The = Eosinophils #) system whic h generated this result tra nsmitted reference range : <=0.5. The reference r nilam was not used to int erpret this result as normal/abnormal . [facility] CenterKcfnpmsOFURBGQPWU1173-23-67 20:27:00 Test Item Value Reference Range Interpretation Comments PT (test code = PT) 15.7 s 12.0-14.7 [facility] CenterDhfhnulBFPQCEPACL6843-87-13 20:27:00 Test Item Value Reference Range Interpretation Comments INR (test code = INR) 1.24 1 0.85-1.17 [facility] CenterEbvwcemYURTAAEMBU1051-36-33 20:27:00 Test Item Value Reference Range Interpretation Comments PTT (test code = PTT) 31.0 s 22.9-35.8 [facility] CenterXbtqhufMCOHUVQPPR2041-91-94 20:27:00 Test Item Value Reference Range Interpretation Comments Hgb (test code = Hgb) 13.5 12.0-16.0 [facility] CenterHmuwdryHFHJAVADTJ2217-83-05 20:27:00 Test Item Value Reference Range Interpretation Comments RBC (test code = RBC) 4.35 4.20-5.40 [facility] CenterUrwdwjcQTANLHSDMR3753-83-66 20:27:00 Test Item Value Reference Range Interpretation Comments RDW (test code = RDW) 13.4 11.5-14.5 [facility] CenterDbjrsdtIKQDLTPNVV6769-01-39 20:27:00 Test Item Value Reference Range Interpretation Comments WBC (test code = WBC) 9.4 3.7-10.4 [facility] HospitalOycdtckUYPPDKKGVT2235-03-36 20:27:00 Test Item Value Reference Range Interpretation Comments MCHC (test code = MCHC) 34.7 32.0-36.0 [facility] HospitalIasiubfRMXJAWUWTA6654-04-59 20:27:00 Test Item Value Reference Range Interpretation Comments MCH (test code = MCH) 31.0 pg 27.0-31.0 [facility] HospitalDxyqvyiQORRPJSZXN7038-15-77 20:27:00 Test Item Value Reference Range Interpretation Comments Hct (test code = Hct) 38.8 36.0-48.0 [facility] HospitalBxugdsbEBZWWCRTHR7976-61-64 20:27:00 Test Item Value Reference Range Interpretation Comments MCV (test code = MCV) 89.4 80.0-98.0 [facility] HospitalOjaeahdLLTMXCKZVK5251-22-84 20:27:00 Test Item Value Reference Range Interpretation Comments MPV (test code = MPV) 8.2 7.4-10.4 [facility] HospitalUtgfpnwXVYZHLQZIO1898-66-02 20:27:00 Test Item Value Reference Range Interpretation Comments Platelet (test code = Platelet) 238 133-450 [facility] HospitalYgubkncTGTWXGDBXP6432-99-24 20:27:00 Test Item Value Reference Range Interpretation Comments Ethanol Lvl (test code = Ethanol Lvl) no gt [facility] CenterJtnlvqeMHIGVYLLRU3294-69-26 20:27:00 Test Item Value Reference Range Interpretation Comments Etoh (%) (test code = Etoh (%)) no gt [facility] CenterannCARDIAC [id number] 20:27:00 Test Item Value Reference Range Interpretation Comments Total CK (test code = Total CK) 110 12-191 [facility] HospitalCARDIAC JARKVZO1414-71-23 20:27:00 Test Item Value Reference Range Interpretation Comments Troponin-I (test code no gt See_Comment [Auto mated message] The = Troponin-I) system which g enerated this result transmit kuldip reference range : <=0.40. The reference r nilam was not used to interpr et this result as abiodun l/abnormal. [facility] CenterXplhaptOSIDRFEKKWFH9284-21-48 20:27:00 Test Item Value Reference Range Interpretation Comments AGAP (test code = AGAP) 12.4 10.0-20.0 [facility] RegionZpbvjmkXDHEBKHEPWEP4854-19-52 20:27:00 Test Item Value Reference Range Interpretation Comments eGFR (test code = eGFR) 84 [facility] RegionGdapexsCESAXWKHFDDE7299-01-12 20:27:00 Test Item Value Reference Range Interpretation Comments Calcium Lvl (test code = Calcium Lvl) 10.3 8.5-10.5 [facility] RegionUixeziqBHQLNGQFFYRY1463-16-72 20:27:00 Test Item Value Reference Range Interpretation Comments Creatinine Lvl (test code = Creatinine 0.96 0.50-1.40 Lvl) [facility] RegionLvbwoeqYQIMEHBJPQNC8746-73-62 20:27:00 Test Item Value Reference Range Interpretation Comments Potassium Lvl (test code = Potassium 3.4 3.5-5.1 Lvl) [facility] RegionFbzyqkeHZZYHLOKZVHX3747-13-33 20:27:00 Test Item Value Reference Range Interpretation Comments BUN (test code = BUN) 9 7-22 [facility] RegionBrbhnwuFBNGUDHGAWJX7602-10-33 20:27:00 Test Item Value Reference Range Interpretation Comments Glucose Lvl (test code = Glucose Lvl) 96 70-99 [facility] RegionBuvrjhpOHYMSFZXPAJR2786-26-55 20:27:00 Test Item Value Reference Range Interpretation Comments Sodium Lvl (test code = Sodium Lvl) 139 135-145 [facility] RegionXthreglOPOKSKARDVEO4123-73-86 20:27:00 Test Item Value Reference Range Interpretation Comments Chloride Lvl (test code = Chloride Lvl) 102 95-109 [facility] RegionMygetmjMVZIGONTCYWW9379-76-16 20:27:00 Test Item Value Reference Range Interpretation Comments CO2 (test code = CO2) 28 24-32 [place] [id number] 20:27:00 Test Item Value Reference Range Interpretation Comments S Preg (test code = S Negative *NA*(10/31/17 Preg) 3:27 PM) [facility] CenterEuvegbwVIZRPBIAYW0715-32-04 20:27:00 Test Item Value Reference Range Interpretation Comments Lymphocytes (test code = Lymphocytes) 18.7 20.0-40.0 [facility] CenterBscffwdVOVJVUGAAL5342-52-70 20:27:00 Test Item Value Reference Range Interpretation Comments Monocytes (test code = Monocytes) 9.1 2.0-12.0 [facility] CenterGuwxduwHRKRNIRFYX0137-77-27 20:27:00 Test Item Value Reference Range Interpretation Comments Neutrophils # (test code = Neutrophils 6.6 1.5-8.1 #) [facility] CenterKhpeuieATUSWJVTPS5353-28-85 20:27:00 Test Item Value Reference Range Interpretation Comments Lymphocytes # (test code = Lymphocytes 1.8 1.0-5.5 #) [facility] CenterXwmigypBTOVWBNQGU1888-75-91 20:27:00 Test Item Value Reference Range Interpretation Comments Segs (test code = Segs) 70.6 45.0-75.0 [facility] CenterNpttodgNIUFEUVUEJ8741-46-21 20:27:00 Test Item Value Reference Range Interpretation Comments Eosinophils (test code = 1.3 See_Comment [A utomated message] The Eosinophils) system which ge nerated this result tra nsmitted reference range : <=4.0. The reference r nilam was not used to int erpret this result as normal/abnormal . [facility] CenterSltslupMZXDZGXMOH4428-85-71 20:27:00 Test Item Value Reference Range Interpretation Comments Basophils (test code = 0.3 See_Comment [Aut omated message] The Basophils) system which ge nerated this result tra nsmitted reference range : <=1.0. The reference r nilam was not used to int erpret this result as normal/abnormal . [facility] CenterIsamewtFHXUILBUEA7556-10-03 20:27:00 Test Item Value Reference Range Interpretation Comments Monocytes # (test code 0.9 See_Comment [Aut omated message] The = Monocytes #) system which generated this result tra nsmitted reference range : <=0.8. The reference r nilam was not used to int erpret this result as normal/abnormal . [facility] CenterYyzcdbmWVILTCRZON6207-90-72 20:27:00 Test Item Value Reference Range Interpretation Comments Eosinophils # (test code 0.1 See_Comment [A utomated message] The = Eosinophils #) system whic h generated this result tra nsmitted reference range : <=0.5. The reference r nilam was not used to int erpret this result as normal/abnormal . [facility] CenterMjnpgweLJLRAENNLB8467-12-22 20:27:00 Test Item Value Reference Range Interpretation Comments PT (test code = PT) 15.7 s 12.0-14.7 [facility] CenterLsfzeofLHARIGFMPT5102-90-12 20:27:00 Test Item Value Reference Range Interpretation Comments INR (test code = INR) 1.24 1 0.85-1.17 [facility] CenterGtnaomxRHETOLFNHZ7883-08-64 20:27:00 Test Item Value Reference Range Interpretation Comments PTT (test code = PTT) 31.0 s 22.9-35.8 [facility] CenterGbwtmohSVBQVZWPDH4963-28-34 20:27:00 Test Item Value Reference Range Interpretation Comments Hgb (test code = Hgb) 13.5 12.0-16.0 [facility] CenterAsbjjtuPFIRLYRFVZ6088-75-65 20:27:00 Test Item Value Reference Range Interpretation Comments RBC (test code = RBC) 4.35 4.20-5.40 [facility] CenterLccfrtxVTFFOIWHFT4565-40-08 20:27:00 Test Item Value Reference Range Interpretation Comments RDW (test code = RDW) 13.4 11.5-14.5 [facility] CenterYkufgziGVQLPHEKEY4612-84-79 20:27:00 Test Item Value Reference Range Interpretation Comments WBC (test code = WBC) 9.4 3.7-10.4 [facility] CenterMudiuxcJWYFHFRHSV8330-88-60 20:27:00 Test Item Value Reference Range Interpretation Comments MCHC (test code = MCHC) 34.7 32.0-36.0 [facility] CenterImivulfTUUUCZELJI9630-16-13 20:27:00 Test Item Value Reference Range Interpretation Comments MCH (test code = MCH) 31.0 pg 27.0-31.0 [facility] CenterNfyckbqXZMHLLKYZX6949-96-37 20:27:00 Test Item Value Reference Range Interpretation Comments Hct (test code = Hct) 38.8 36.0-48.0 [facility] CenterVaxeretCKAIGAQCAJ2235-33-53 20:27:00 Test Item Value Reference Range Interpretation Comments MCV (test code = MCV) 89.4 80.0-98.0 [facility] CenterEsjlnqsQXZTBZUPYV5165-59-67 20:27:00 Test Item Value Reference Range Interpretation Comments MPV (test code = MPV) 8.2 7.4-10.4 [facility] CenterPoecbaiKFNQBOUPPE5720-24-24 20:27:00 Test Item Value Reference Range Interpretation Comments Platelet (test code = Platelet) 238 133-450 [facility] HospitalLykjlncOVKUJUEDLO2537-98-34 20:27:00 Test Item Value Reference Range Interpretation Comments Ethanol Lvl (test code = Ethanol Lvl) no gt [facility] CenterNnkosuqORTUUTXAKP4821-92-23 20:27:00 Test Item Value Reference Range Interpretation Comments Etoh (%) (test code = Etoh (%)) no gt [facility] CenterBreeze TechnologyCARDIAC KACGXVS0815-80-57 20:27:00 Test Item Value Reference Range Interpretation Comments Total CK (test code = Total CK) 110 12-191 [facility] CenterSafeTacMagAC HZYIRBJ8595-30-51 20:27:00 Test Item Value Reference Range Interpretation Comments Troponin-I (test code no gt See_Comment [Auto mated message] The = Troponin-I) system which g enerated this result transmit kuldip reference range : <=0.40. The reference r nilam was not used to interpr et this result as abiodun l/abnormal. [facility] FelyiotRRIGMMMLCLQM2474-92-85 20:27:00 Test Item Value Reference Range Interpretation Comments AGAP (test code = AGAP) 12.4 10.0-20.0 [facility] YlaudevILTJGLYVQQXD6034-70-89 20:27:00 Test Item Value Reference Range Interpretation Comments eGFR (test code = eGFR) 84 [facility] CenterTtmyxjsZXFUHRLRJWZE5661-02-14 20:27:00 Test Item Value Reference Range Interpretation Comments Calcium Lvl (test code = Calcium Lvl) 10.3 8.5-10.5 [facility] HkfvkcmUQDUIFGLBYTQ0085-07-08 20:27:00 Test Item Value Reference Range Interpretation Comments Creatinine Lvl (test code = Creatinine 0.96 0.50-1.40 Lvl) [facility] CenterWoxpmlcLKFUGFUAFMYT8159-93-61 20:27:00 Test Item Value Reference Range Interpretation Comments Potassium Lvl (test code = Potassium 3.4 3.5-5.1 Lvl) [facility] CenterAm[facility] Labs ASFHIUJ2960-08-98 20:27:00 Test Item Value Reference Range Interpretation Comments Total CK (test code = Total CK) 110 12-191 [facility] CenterAm[facility] BUKYUFQ7815-49-87 20:27:00 Test Item Value Reference Range Interpretation Comments Troponin-I (test code no gt See_Comment [Auto mated message] The = Troponin-I) system which g enerated this result transmit kuldip reference range : <=0.40. The reference r nilam was not used to interpr et this result as abiodun l/abnormal. [facility]WmzuaohHVSTGOZEPUPY1691-97-82 20:27:00 Test Item Value Reference Range Interpretation Comments AGAP (test code = AGAP) 12.4 10.0-20.0 [facility] RegionNidzubyYECQOPPULBCO9522-75-61 20:27:00 Test Item Value Reference Range Interpretation Comments eGFR (test code = eGFR) 84 [facility] RegionTsleshvOXKELKFNNRNU5589-21-21 20:27:00 Test Item Value Reference Range Interpretation Comments Calcium Lvl (test code = Calcium Lvl) 10.3 8.5-10.5 [facility] RegionPtirevsGFYPAVYPBBDL0245-33-98 20:27:00 Test Item Value Reference Range Interpretation Comments Creatinine Lvl (test code = Creatinine 0.96 0.50-1.40 Lvl) [facility] RegionKkvaijxZPHTXJEBSHNF5628-83-95 20:27:00 Test Item Value Reference Range Interpretation Comments Potassium Lvl (test code = Potassium 3.4 3.5-5.1 Lvl) [facility] RegionXrrekzhDACPRJMHJPUP8251-84-05 20:27:00 Test Item Value Reference Range Interpretation Comments BUN (test code = BUN) 9 - [facility] RegionZffewxnQGRXYMXGRVXS6204-05-99 20:27:00 Test Item Value Reference Range Interpretation Comments Glucose Lvl (test code = Glucose Lvl) 96 70-99 [facility] RegionXqdbrbxCJXGPRBGOFHK1354-14-94 20:27:00 Test Item Value Reference Range Interpretation Comments Sodium Lvl (test code = Sodium Lvl) 139 135-145 [facility] RegionTgxxbxgXDEHQAUNHUHG0106-13-21 20:27:00 Test Item Value Reference Range Interpretation Comments BUN (test code = BUN) 9 7- [facility] RegionXkpibogVBRBGUJBDTAV7011-90-37 20:27:00 Test Item Value Reference Range Interpretation Comments Chloride Lvl (test code = Chloride Lvl) 102 95-109 [facility] RegionZvwlwlnOYDHBBANMBRJ6001-38-76 20:27:00 Test Item Value Reference Range Interpretation Comments CO2 (test code = CO2) 28 24-32 [facility]kinAbjmhnyVDIUFQNUXYPUG0837-07-71 20:27:00 Test Item Value Reference Range Interpretation Comments S Preg (test code = S Negative *NA*(8/8/18 Preg) 3:27 PM) [facility] CenterWiiiwzkEVUOOGQYMJ1832-93-86 20:27:00 Test Item Value Reference Range Interpretation Comments Lymphocytes (test code = Lymphocytes) 18.7 20.0-40.0 [facility] CenterZglujktDKODUTTJSI3724-16-12 20:27:00 Test Item Value Reference Range Interpretation Comments Monocytes (test code = Monocytes) 9.1 2.0-12.0 [facility] CenterXgyusieEBKARBUQFW9741-24-74 20:27:00 Test Item Value Reference Range Interpretation Comments Neutrophils # (test code = Neutrophils 6.6 1.5-8.1 #) [facility] CenterYphwdgrBOSPXITDIA1129-75-04 20:27:00 Test Item Value Reference Range Interpretation Comments Lymphocytes # (test code = Lymphocytes 1.8 1.0-5.5 #) [facility] CenterAxlztssPHVTWXQFBK1294-80-90 20:27:00 Test Item Value Reference Range Interpretation Comments Segs (test code = Segs) 70.6 45.0-75.0 [facility] CenterYpotossSNASVLRZFU6181-07-51 20:27:00 Test Item Value Reference Range Interpretation Comments Eosinophils (test code = 1.3 See_Comment [A utomated message] The Eosinophils) system which ge nerated this result tra nsmitted reference range : <=4.0. The reference r nilam was not used to int erpret this result as normal/abnormal . [facility] CenterCyuggujDHVLINDQRC3437-92-33 20:27:00 Test Item Value Reference Range Interpretation Comments Basophils (test code = 0.3 See_Comment [Aut omated message] The Basophils) system which ge nerated this result tra nsmitted reference range : <=1.0. The reference r nilam was not used to int erpret this result as normal/abnormal . [facility] CenterOhhsekjMMULYSJNUYPF9576-30-73 20:27:00 Test Item Value Reference Range Interpretation Comments Glucose Lvl (test code = Glucose Lvl) 96 70-99 [facility] CenterIjccpodCEVUULADQS5956-27-95 20:27:00 Test Item Value Reference Range Interpretation Comments Monocytes # (test code 0.9 See_Comment [Aut omated message] The = Monocytes #) system which generated this result tra nsmitted reference range : <=0.8. The reference r nilam was not used to int erpret this result as normal/abnormal . [facility] CenterZtphsntVORRDOQRXW5947-47-31 20:27:00 Test Item Value Reference Range Interpretation Comments Eosinophils # (test code 0.1 See_Comment [A utomated message] The = Eosinophils #) system whic h generated this result tra nsmitted reference range : <=0.5. The reference r nilam was not used to int erpret this result as normal/abnormal . [facility] CenterMozyfyxDDCHKJUTAK7861-54-98 20:27:00 Test Item Value Reference Range Interpretation Comments PT (test code = PT) 15.7 s 12.0-14.7 [facility] CenterUfdrilpLHJRKICLBX8684-68-11 20:27:00 Test Item Value Reference Range Interpretation Comments INR (test code = INR) 1.24 1 0.85-1.17 [facility] CenterMuqaeqcEEKULOLNIU3589-33-25 20:27:00 Test Item Value Reference Range Interpretation Comments PTT (test code = PTT) 31.0 s 22.9-35.8 [facility] CenterAqwpsgdNALIHRYMSB7342-03-62 20:27:00 Test Item Value Reference Range Interpretation Comments Hgb (test code = Hgb) 13.5 12.0-16.0 [facility] HospitalQscialaHGDCBVDGCU8572-24-86 20:27:00 Test Item Value Reference Range Interpretation Comments RBC (test code = RBC) 4.35 4.20-5.40 [facility] CenterSwqczwgWRZBRZLSMW0653-42-76 20:27:00 Test Item Value Reference Range Interpretation Comments RDW (test code = RDW) 13.4 11.5-14.5 [facility] CenterRmwgppfSYULZKWHFB1785-39-79 20:27:00 Test Item Value Reference Range Interpretation Comments WBC (test code = WBC) 9.4 3.7-10.4 [facility] CenterUjcylbxITKNZXRAHA1348-98-24 20:27:00 Test Item Value Reference Range Interpretation Comments MCHC (test code = MCHC) 34.7 32.0-36.0 [facility] CenterHcpbrnlMJDGPCZCUSPY8266-32-35 20:27:00 Test Item Value Reference Range Interpretation Comments Sodium Lvl (test code = Sodium Lvl) 139 135-145 [facility] CenterShcwzxrPZSWFLRPQL9343-79-41 20:27:00 Test Item Value Reference Range Interpretation Comments MCH (test code = MCH) 31.0 pg 27.0-31.0 [facility] CenterBpkbhwgFDLSXJRBPL8116-45-89 20:27:00 Test Item Value Reference Range Interpretation Comments Hct (test code = Hct) 38.8 36.0-48.0 [facility] CenterShzdsczKZVIABWYGO7641-19-73 20:27:00 Test Item Value Reference Range Interpretation Comments MCV (test code = MCV) 89.4 80.0-98.0 [facility] CenterLruobcoBWDXBZLZOS4166-67-04 20:27:00 Test Item Value Reference Range Interpretation Comments MPV (test code = MPV) 8.2 7.4-10.4 [facility] CenterHuyymglZVORPNXCRT6228-73-07 20:27:00 Test Item Value Reference Range Interpretation Comments Platelet (test code = Platelet) 238 133-450 [facility] HospitalYaceiqsUXHOMPQZTB8132-38-66 20:27:00 Test Item Value Reference Range Interpretation Comments Ethanol Lvl (test code = Ethanol Lvl) no gt [place] 10849018-08-08 20:27:00 Test Item Value Reference Range Interpretation Comments Etoh (%) (test code = Etoh (%)) no gt [facility] CenterIuuokhdRFEUBYEQVSIL2809-28-49 20:27:00 Test Item Value Reference Range Interpretation Comments Chloride Lvl (test code = Chloride Lvl) 102 95-109 [facility] RegionDubyhohCJQRYDWSKKAE1943-53-07 20:27:00 Test Item Value Reference Range Interpretation Comments CO2 (test code = CO2) 28 24-32 [place] [id number] 20:27:00 Test Item Value Reference Range Interpretation Comments S Preg (test code = S Negative *NA*(10/31/17 Preg) 3:27 PM) [facility] CenterZanpxtoAVLYTPXNXL5666-04-63 20:27:00 Test Item Value Reference Range Interpretation Comments Lymphocytes (test code = Lymphocytes) 18.7 20.0-40.0 [facility] CenterOtzansfMZKXAIPGSV5410-09-19 20:27:00 Test Item Value Reference Range Interpretation Comments Monocytes (test code = Monocytes) 9.1 2.0-12.0 [facility] CenterOuitgcgMDENUGTMJR8086-59-54 20:27:00 Test Item Value Reference Range Interpretation Comments Neutrophils # (test code = Neutrophils 6.6 1.5-8.1 #) [facility] CenterTcvubpiYHUBMDZEMY4641-55-00 20:27:00 Test Item Value Reference Range Interpretation Comments Lymphocytes # (test code = Lymphocytes 1.8 1.0-5.5 #) [facility] CenterDyuveqtSOXGWNXJEF7590-89-82 20:27:00 Test Item Value Reference Range Interpretation Comments Segs (test code = Segs) 70.6 45.0-75.0 [facility] CenterAahnczqJOYXMTXUXS1500-51-54 20:27:00 Test Item Value Reference Range Interpretation Comments Eosinophils (test code = 1.3 See_Comment [A utomated message] The Eosinophils) system which ge nerated this result tra nsmitted reference range : <=4.0. The reference r nilam was not used to int erpret this result as normal/abnormal . [facility] CenterAvbxlgfOZPHCLTSLN9302-36-96 20:27:00 Test Item Value Reference Range Interpretation Comments Basophils (test code = 0.3 See_Comment [Aut omated message] The Basophils) system which ge nerated this result tra nsmitted reference range : <=1.0. The reference r nilam was not used to int erpret this result as normal/abnormal . [facility] CenterQrzlgpcBEWYUDKTWA0468-20-03 20:27:00 Test Item Value Reference Range Interpretation Comments Monocytes # (test code 0.9 See_Comment [Aut omated message] The = Monocytes #) system which generated this result tra nsmitted reference range : <=0.8. The reference r nilam was not used to int erpret this result as normal/abnormal . [facility] CenterSmrlxkyBLNNSMIJHR8023-65-93 20:27:00 Test Item Value Reference Range Interpretation Comments Eosinophils # (test code 0.1 See_Comment [A utomated message] The = Eosinophils #) system whic h generated this result tra nsmitted reference range : <=0.5. The reference r nilam was not used to int erpret this result as normal/abnormal . [facility] CenterHkejkfvKJQYZMMINC0569-19-32 20:27:00 Test Item Value Reference Range Interpretation Comments PT (test code = PT) 15.7 s 12.0-14.7 [facility] CenterAoqcsdoMHRTXIWMZI6652-66-47 20:27:00 Test Item Value Reference Range Interpretation Comments INR (test code = INR) 1.24 1 0.85-1.17 [facility] CenterDsktggfKJVWOJDHHT2710-63-16 20:27:00 Test Item Value Reference Range Interpretation Comments PTT (test code = PTT) 31.0 s 22.9-35.8 [facility] HospitalYljssiqLDRTOBSKKF0714-47-46 20:27:00 Test Item Value Reference Range Interpretation Comments Hgb (test code = Hgb) 13.5 12.0-16.0 [facility] HospitalCqdssxsNENGFCLWGU2807-73-98 20:27:00 Test Item Value Reference Range Interpretation Comments RBC (test code = RBC) 4.35 4.20-5.40 [facility] HospitalCyqplqyGGBSDIFUTT3979-69-05 20:27:00 Test Item Value Reference Range Interpretation Comments RDW (test code = RDW) 13.4 11.5-14.5 [facility] HospitalUlmodkxKFCCGYELCN2327-92-95 20:27:00 Test Item Value Reference Range Interpretation Comments WBC (test code = WBC) 9.4 3.7-10.4 [facility] HospitalYtygyyvHBILFSXAET7036-99-61 20:27:00 Test Item Value Reference Range Interpretation Comments MCHC (test code = MCHC) 34.7 32.0-36.0 [facility] HospitalGsqlniqJGZVNCUOOD0620-71-89 20:27:00 Test Item Value Reference Range Interpretation Comments MCH (test code = MCH) 31.0 pg 27.0-31.0 [facility] HospitalZjybloiSFUCCVOYEM6732-32-03 20:27:00 Test Item Value Reference Range Interpretation Comments Hct (test code = Hct) 38.8 36.0-48.0 [facility] HospitalWiletsnRJGCPWDWYD9579-49-68 20:27:00 Test Item Value Reference Range Interpretation Comments MCV (test code = MCV) 89.4 80.0-98.0 [facility] HospitalYvicaebVJUFHRQPTR2157-22-35 20:27:00 Test Item Value Reference Range Interpretation Comments MPV (test code = MPV) 8.2 7.4-10.4 [facility] HospitalZycbvdbFIWNSBQMHI9488-84-95 20:27:00 Test Item Value Reference Range Interpretation Comments Platelet (test code = Platelet) 238 133-450 [facility] HospitalXpnqoatIOOILMBHKX0029-02-58 20:27:00 Test Item Value Reference Range Interpretation Comments Ethanol Lvl (test code = Ethanol Lvl) no gt [facility] CenterXxopkwvAWSVEKJFIG6878-35-63 20:27:00 Test Item Value Reference Range Interpretation Comments Etoh (%) (test code = Etoh (%)) no gt [facility] RBUFSFQ6265-48-93 20:27:00 Test Item Value Reference Range Interpretation Comments Total CK (test code = Total CK) 110 12-191 [facility] CenterannCARDIAC PSXLVSZ4905-79-84 20:27:00 Test Item Value Reference Range Interpretation Comments Troponin-I (test code no gt See_Comment [Auto mated message] The = Troponin-I) system which g enerated this result transmit kuldip reference range : <=0.40. The reference r nilam was not used to interpr et this result as abiodun l/abnormal. [facility] RegionCsrmkepKBLRYJUCTDDJ9378-56-91 20:27:00 Test Item Value Reference Range Interpretation Comments AGAP (test code = AGAP) 12.4 10.0-20.0 [facility] RegionYdzzsadJQNNUXLNPFUY9788-30-24 20:27:00 Test Item Value Reference Range Interpretation Comments eGFR (test code = eGFR) 84 [facility] RegionBceqvniOQQWKKBWSVJJ0953-83-43 20:27:00 Test Item Value Reference Range Interpretation Comments Calcium Lvl (test code = Calcium Lvl) 10.3 8.5-10.5 [facility] RegionXsalaxyJVXGTPSMSKXS9446-92-37 20:27:00 Test Item Value Reference Range Interpretation Comments Creatinine Lvl (test code = Creatinine 0.96 0.50-1.40 Lvl) [facility] RegionEjwjrlpFIQSVGIDGMMB5361-89-49 20:27:00 Test Item Value Reference Range Interpretation Comments Potassium Lvl (test code = Potassium 3.4 3.5-5.1 Lvl) [facility] RegionVxsbiuvNMCVYLPGINOB2595-50-21 20:27:00 Test Item Value Reference Range Interpretation Comments BUN (test code = BUN) 9 7-22 [facility] RegionDqynsycNOFEOGOMIWYV1543-64-58 20:27:00 Test Item Value Reference Range Interpretation Comments Glucose Lvl (test code = Glucose Lvl) 96 70-99 [facility] RegionSeocrppOSPXLNLZXXBV1217-80-91 20:27:00 Test Item Value Reference Range Interpretation Comments Sodium Lvl (test code = Sodium Lvl) 139 135-145 [facility] RegionIbmbmfbJEOSULMUUZKF6918-74-29 20:27:00 Test Item Value Reference Range Interpretation Comments Chloride Lvl (test code = Chloride Lvl) 102 95-109 [facility] RegionEfqkqejOWLPVJFIYPEM4707-64-45 20:27:00 Test Item Value Reference Range Interpretation Comments CO2 (test code = CO2) 28 24-32 [facility] CenterVguneuzKGSWXEMLMJQNT3193-37-79 20:27:00 Test Item Value Reference Range Interpretation Comments S Preg (test code = S Negative *NA*(10/31/17 Preg) 3:27 PM) [facility] CenterQpjlhlcBZOFHVUCHS8595-08-93 20:27:00 Test Item Value Reference Range Interpretation Comments Lymphocytes (test code = Lymphocytes) 18.7 20.0-40.0 [facility] CenterQqjkxebVTBNQKYFUX7146-04-71 20:27:00 Test Item Value Reference Range Interpretation Comments Monocytes (test code = Monocytes) 9.1 2.0-12.0 [facility] CenterAggowwoWLIZMADYRH7288-61-76 20:27:00 Test Item Value Reference Range Interpretation Comments Neutrophils # (test code = Neutrophils 6.6 1.5-8.1 #) [facility] CenterTfuvqwsCJBKVQLJUG7093-42-44 20:27:00 Test Item Value Reference Range Interpretation Comments Lymphocytes # (test code = Lymphocytes 1.8 1.0-5.5 #) [facility] CenterLczvcecRIMQRYPMVI8008-44-51 20:27:00 Test Item Value Reference Range Interpretation Comments Segs (test code = Segs) 70.6 45.0-75.0 [facility] CenterXwlcnbrRTOERXOFHN0440-56-75 20:27:00 Test Item Value Reference Range Interpretation Comments Eosinophils (test code = 1.3 See_Comment [A utomated message] The Eosinophils) system which ge nerated this result tra nsmitted reference range : <=4.0. The reference r nilam was not used to int erpret this result as normal/abnormal . [facility] CenterVglkcmlIFNMCLUGTD2390-93-48 20:27:00 Test Item Value Reference Range Interpretation Comments Basophils (test code = 0.3 See_Comment [Aut omated message] The Basophils) system which ge nerated this result tra nsmitted reference range : <=1.0. The reference r nilam was not used to int erpret this result as normal/abnormal . [facility] CenterSuhecdfWVIAFCAKBE0896-63-66 20:27:00 Test Item Value Reference Range Interpretation Comments Monocytes # (test code 0.9 See_Comment [Aut omated message] The = Monocytes #) system which generated this result tra nsmitted reference range : <=0.8. The reference r nilam was not used to int erpret this result as normal/abnormal . [facility] CenterOzjohsxHJOOZCGWBY8723-70-82 20:27:00 Test Item Value Reference Range Interpretation Comments Eosinophils # (test code 0.1 See_Comment [A utomated message] The = Eosinophils #) system whic h generated this result tra nsmitted reference range : <=0.5. The reference r nilam was not used to int erpret this result as normal/abnormal . [facility] CenterLmfkxglKJFEHTGWKL7490-88-06 20:27:00 Test Item Value Reference Range Interpretation Comments PT (test code = PT) 15.7 s 12.0-14.7 [facility] CenterTlvedphQBOVECZWEE1766-77-41 20:27:00 Test Item Value Reference Range Interpretation Comments INR (test code = INR) 1.24 1 0.85-1.17 [facility] CenterDdiadwgMGBNARANIB3632-31-51 20:27:00 Test Item Value Reference Range Interpretation Comments PTT (test code = PTT) 31.0 s 22.9-35.8 [facility] CenterTwfpjgsYXWYAXRTOT9091-50-46 20:27:00 Test Item Value Reference Range Interpretation Comments Hgb (test code = Hgb) 13.5 12.0-16.0 [facility] CenterZqayzodLVWCMONGYO2247-81-43 20:27:00 Test Item Value Reference Range Interpretation Comments RBC (test code = RBC) 4.35 4.20-5.40 [facility] CenterPceysjdFQGOKINGRF3048-02-97 20:27:00 Test Item Value Reference Range Interpretation Comments RDW (test code = RDW) 13.4 11.5-14.5 [facility] CenterRsilymkUVOIWBKVLZ5029-71-49 20:27:00 Test Item Value Reference Range Interpretation Comments WBC (test code = WBC) 9.4 3.7-10.4 [facility] CenterMwqdujvIXQIFWPNAD9709-39-53 20:27:00 Test Item Value Reference Range Interpretation Comments MCHC (test code = MCHC) 34.7 32.0-36.0 [facility] CenterUggfkgiZDLFFGBDYZ6435-32-42 20:27:00 Test Item Value Reference Range Interpretation Comments MCH (test code = MCH) 31.0 pg 27.0-31.0 [facility] CenterBwtxqrgKFQARFUWQZ2426-80-64 20:27:00 Test Item Value Reference Range Interpretation Comments Hct (test code = Hct) 38.8 36.0-48.0 [facility] HospitalGsnifmzZEOFVTWIME6553-71-03 20:27:00 Test Item Value Reference Range Interpretation Comments MCV (test code = MCV) 89.4 80.0-98.0 [facility] HospitalIigkqbgZMMWVVPJII5560-76-47 20:27:00 Test Item Value Reference Range Interpretation Comments MPV (test code = MPV) 8.2 7.4-10.4 [facility] HospitalSmsuxexDJKKMEBGYN0429-53-92 20:27:00 Test Item Value Reference Range Interpretation Comments Platelet (test code = Platelet) 238 133-450 [facility]JgucmgvWVRZGQBIPJ0940-83-64 20:27:00 Test Item Value Reference Range Interpretation Comments Ethanol Lvl (test code = Ethanol Lvl) no gt [facility]ownDpqdfwtJGBJCXLJLA0574-36-55 20:27:00 Test Item Value Reference Range Interpretation Comments Etoh (%) (test code = Etoh (%)) no gt [facility] HospitalCARDIAC ZSNMSLM6744-27-28 20:27:00 Test Item Value Reference Range Interpretation Comments Total CK (test code = Total CK) 110 12-191 [facility] HospitalCARD[facility]AC JURZRPZ8355-63-38 20:27:00 Test Item Value Reference Range Interpretation Comments Troponin-I (test code no gt See_Comment [Auto mated message] The = Troponin-I) system which g enerated this result transmit kuldip reference range : <=0.40. The reference r nilam was not used to interpr et this result as abiodun l/abnormal. [facility] RegionDstxtxcHBSZRMUWLHGS5167-65-01 20:27:00 Test Item Value Reference Range Interpretation Comments AGAP (test code = AGAP) 12.4 10.0-20.0 [facility]pvvxubXNUWVHAUQZYT5400[facility]80[facility]07 20:27:00 Test Item Value Reference Range Interpretation Comments eGFR (test code = eGFR) 84 [facility]MdokhheBPNBYWFIRFJX4599-58-93 20:27:00 Test Item Value Reference Range Interpretation Comments Calcium Lvl (test code = Calcium Lvl) 10.3 8.5-10.5 [facility] RegionOxwrnhoDGNTSWFGUALE3275-49-22 20:27:00 Test Item Value Reference Range Interpretation Comments Creatinine Lvl (test code = Creatinine 0.96 0.50-1.40 Lvl) [facility] RegionYuuewctQMABLLWFIZDF9970-37-08 20:27:00 Test Item Value Reference Range Interpretation Comments Potassium Lvl (test code = Potassium 3.4 3.5-5.1 Lvl) [facility] RegionErsegmwWHVKVUGIBEDR2920-31-92 20:27:00 Test Item Value Reference Range Interpretation Comments BUN (test code = BUN) 9 7-22 [facility] RegionUyipalzZUTYVUIGTVYQ2653-81-92 20:27:00 Test Item Value Reference Range Interpretation Comments Glucose Lvl (test code = Glucose Lvl) 96 70-99 [facility] RegionDyzffajWOVBSMTAOLBE2581-33-19 20:27:00 Test Item Value Reference Range Interpretation Comments Sodium Lvl (test code = Sodium Lvl) 139 135-145 [facility] RegionSyerkwlFCUGDCJAFWAR6287-66-90 20:27:00 Test Item Value Reference Range Interpretation Comments Chloride Lvl (test code = Chloride Lvl) 102 95-109 [facility] RegionBplfmhaISBIXWSQUSOB9956-45-14 20:27:00 Test Item Value Reference Range Interpretation Comments CO2 (test code = CO2) 28 24-32 [place] [id number] 20:27:00 Test Item Value Reference Range Interpretation Comments S Preg (test code = S Negative *NA*(10/31/17 Preg) 3:27 PM) [facility] CenterKupmpeaPLFRULMOFP3386-05-02 20:27:00 Test Item Value Reference Range Interpretation Comments Lymphocytes (test code = Lymphocytes) 18.7 20.0-40.0 [facility] CenterRaxvkjbEMHRJINAVQ2120-32-04 20:27:00 Test Item Value Reference Range Interpretation Comments Monocytes (test code = Monocytes) 9.1 2.0-12.0 [facility] CenterRiyojodHELFZGPGEZ7531-51-86 20:27:00 Test Item Value Reference Range Interpretation Comments Neutrophils # (test code = Neutrophils 6.6 1.5-8.1 #) [facility] CenterDkkpbnpLMBYGAKVNA4980-67-92 20:27:00 Test Item Value Reference Range Interpretation Comments Lymphocytes # (test code = Lymphocytes 1.8 1.0-5.5 #) [facility] CenterEsmvctwLWNOLYNEAW4401-30-31 20:27:00 Test Item Value Reference Range Interpretation Comments Segs (test code = Segs) 70.6 45.0-75.0 [facility] CenterZvlsiijQSWJMRYEFF9211-27-84 20:27:00 Test Item Value Reference Range Interpretation Comments Eosinophils (test code = 1.3 See_Comment [A utomated message] The Eosinophils) system which ge nerated this result tra nsmitted reference range : <=4.0. The reference r nilam was not used to int erpret this result as normal/abnormal . [facility] CenterSmposmtGSEHIMZCBX9839-41-68 20:27:00 Test Item Value Reference Range Interpretation Comments Basophils (test code = 0.3 See_Comment [Aut omated message] The Basophils) system which ge nerated this result tra nsmitted reference range : <=1.0. The reference r nilam was not used to int erpret this result as normal/abnormal . [facility] CenterRubvzqbNPAXOYYJXH6020-11-62 20:27:00 Test Item Value Reference Range Interpretation Comments Monocytes # (test code 0.9 See_Comment [Aut omated message] The = Monocytes #) system which generated this result tra nsmitted reference range : <=0.8. The reference r nilam was not used to int erpret this result as normal/abnormal . [facility] CenterHwewxpyTEQJAQJZET4023-00-65 20:27:00 Test Item Value Reference Range Interpretation Comments Eosinophils # (test code 0.1 See_Comment [A utomated message] The = Eosinophils #) system whic h generated this result tra nsmitted reference range : <=0.5. The reference r nilam was not used to int erpret this result as normal/abnormal . [facility] CenterCledhsnYWOMBPMMJP6082-91-08 20:27:00 Test Item Value Reference Range Interpretation Comments PT (test code = PT) 15.7 s 12.0-14.7 [facility] CenterSjjvgfgUVNJKFSIRF3434-03-62 20:27:00 Test Item Value Reference Range Interpretation Comments INR (test code = INR) 1.24 1 0.85-1.17 [facility] CenterPodezcsLPYJEQHYDD4629-17-59 20:27:00 Test Item Value Reference Range Interpretation Comments PTT (test code = PTT) 31.0 s 22.9-35.8 [facility] CenterXqxcjizNGUVDXQQMU8631-26-03 20:27:00 Test Item Value Reference Range Interpretation Comments Hgb (test code = Hgb) 13.5 12.0-16.0 [facility] CenterPalyulqSCLDHFUFQJ4950-12-96 20:27:00 Test Item Value Reference Range Interpretation Comments RBC (test code = RBC) 4.35 4.20-5.40 [facility] CenterBjjdkgoQEGNONTSGN8374-98-20 20:27:00 Test Item Value Reference Range Interpretation Comments RDW (test code = RDW) 13.4 11.5-14.5 [facility] HospitalZmanmgcHGRPLWOPYH8765-92-37 20:27:00 Test Item Value Reference Range Interpretation Comments WBC (test code = WBC) 9.4 3.7-10.4 [facility] HospitalRxxwqwmMJRFGCQQIT4606-24-15 20:27:00 Test Item Value Reference Range Interpretation Comments MCHC (test code = MCHC) 34.7 32.0-36.0 [facility] CenterVxpzmppGYETQFPFNZ7216-74-81 20:27:00 Test Item Value Reference Range Interpretation Comments MCH (test code = MCH) 31.0 pg 27.0-31.0 [facility] HospitalSxsxoapUHLKCSWKEC3465-85-54 20:27:00 Test Item Value Reference Range Interpretation Comments Hct (test code = Hct) 38.8 36.0-48.0 [facility] HospitalOedlbjjCLWWEOESXF9382-08-09 20:27:00 Test Item Value Reference Range Interpretation Comments MCV (test code = MCV) 89.4 80.0-98.0 [facility] HospitalVszveqcPFQMXMIIZR2647-35-80 20:27:00 Test Item Value Reference Range Interpretation Comments MPV (test code = MPV) 8.2 7.4-10.4 [facility] HospitalYgmpkirPKBCIGPGOW7764-86-83 20:27:00 Test Item Value Reference Range Interpretation Comments Platelet (test code = Platelet) 238 133-450 [facility] HospitalEimgrxzOFBXBJEZPC3543-53-28 20:27:00 Test Item Value Reference Range Interpretation Comments Ethanol Lvl (test code = Ethanol Lvl) no gt [facility] CenterYvpntwdYXIAPIFFGS2596-83-72 20:27:00 Test Item Value Reference Range Interpretation Comments Etoh (%) (test code = Etoh (%)) no gt [facility] CenterannCARDIAC SGJQZUQ2924-65-01 20:27:00 Test Item Value Reference Range Interpretation Comments Total CK (test code = Total CK) 110 12-191 [facility] CenterannCARDIAC QTZSWXP3291-02-46 20:27:00 Test Item Value Reference Range Interpretation Comments Troponin-I (test code no gt See_Comment [Auto mated message] The = Troponin-I) system which g enerated this result transmit kuldip reference range : <=0.40. The reference r nilam was not used to interpr et this result as abiodun l/abnormal. [facility]RsmseroGUHCWRELFSVM9985-16-09 20:27:00 Test Item Value Reference Range Interpretation Comments AGAP (test code = AGAP) 12.4 10.0-20.0 [facility] RegionPzljqknQHSROXJOSRBT0946-90-17 20:27:00 Test Item Value Reference Range Interpretation Comments eGFR (test code = eGFR) 84 [facility] RegionYopumcxMJHLLCVZGVQP5424-55-87 20:27:00 Test Item Value Reference Range Interpretation Comments Calcium Lvl (test code = Calcium Lvl) 10.3 8.5-10.5 [facility] RegionOymzdhsENSDSBCQLROX6538-68-46 20:27:00 Test Item Value Reference Range Interpretation Comments Creatinine Lvl (test code = Creatinine 0.96 0.50-1.40 Lvl) [facility] RegionNjbehgdWYOLTJPJFQHI4146-79-44 20:27:00 Test Item Value Reference Range Interpretation Comments Potassium Lvl (test code = Potassium 3.4 3.5-5.1 Lvl) [facility] RegionWbwmddfAGRLOSBXTOFN1231-15-98 20:27:00 Test Item Value Reference Range Interpretation Comments BUN (test code = BUN) 9 7-22 [facility] RegionZtutoznAGDMIVSRZUGQ5661-99-60 20:27:00 Test Item Value Reference Range Interpretation Comments Glucose Lvl (test code = Glucose Lvl) 96 70-99 [facility] RegionGvhzrjdCMAZAPZWORGS7992-41-11 20:27:00 Test Item Value Reference Range Interpretation Comments Sodium Lvl (test code = Sodium Lvl) 139 135-145 [facility] RegionYztkzioRKXJQKBVZTFF2627-64-26 20:27:00 Test Item Value Reference Range Interpretation Comments Chloride Lvl (test code = Chloride Lvl) 102 95-109 [facility] RegionSznaxlxAHQGRQCBEFRT0665-76-32 20:27:00 Test Item Value Reference Range Interpretation Comments CO2 (test code = CO2) 28 24-32 [facility]kinAwtzbqvHFCHOXBRMOUUJ1924-59-43 20:27:00 Test Item Value Reference Range Interpretation Comments S Preg (test code = S Negative *NA*(10/31/17 Preg) 3:27 PM) [facility] HospitalSmlrezkRXYJQJZPEE1672-03-93 20:27:00 Test Item Value Reference Range Interpretation Comments Lymphocytes (test code = Lymphocytes) 18.7 20.0-40.0 [facility] CenterNekmnvmXLGAUFVLWX6249-23-15 20:27:00 Test Item Value Reference Range Interpretation Comments Monocytes (test code = Monocytes) 9.1 2.0-12.0 [facility] CenterKakfzhzHVSPWXLOKR8068-99-17 20:27:00 Test Item Value Reference Range Interpretation Comments Neutrophils # (test code = Neutrophils 6.6 1.5-8.1 #) [facility] CenterRkqpbmuVJBOIVNSIV0206-99-67 20:27:00 Test Item Value Reference Range Interpretation Comments Lymphocytes # (test code = Lymphocytes 1.8 1.0-5.5 #) [facility] CenterHfbqasjNUXYMWODDU9197-98-61 20:27:00 Test Item Value Reference Range Interpretation Comments Segs (test code = Segs) 70.6 45.0-75.0 [place] 434028-08-08 20:27:00 Test Item Value Reference Range Interpretation Comments Eosinophils (test code = 1.3 See_Comment [A utomated message] The Eosinophils) system which ge nerated this result tra nsmitted reference range : <=4.0. The reference r nilam was not used to int erpret this result as normal/abnormal . [facility] CenterWjpykemJCKECTYJMH4157-03-74 20:27:00 Test Item Value Reference Range Interpretation Comments Basophils (test code = 0.3 See_Comment [Aut omated message] The Basophils) system which ge nerated this result tra nsmitted reference range : <=1.0. The reference r nilam was not used to int erpret this result as normal/abnormal . [facility] CenterHkuktkxRMVSTAXQUZ8833-35-92 20:27:00 Test Item Value Reference Range Interpretation Comments Monocytes # (test code 0.9 See_Comment [Aut omated message] The = Monocytes #) system which generated this result tra nsmitted reference range : <=0.8. The reference r nilam was not used to int erpret this result as normal/abnormal . [facility] CenterKtkqwnjIJOYUBGULL5763-41-79 20:27:00 Test Item Value Reference Range Interpretation Comments Eosinophils # (test code 0.1 See_Comment [A utomated message] The = Eosinophils #) system wh h generated this result tra nsmitted reference range : <=0.5. The reference r nilam was not used to int erpret this result as normal/abnormal . [facility] CenterCgwxfvfTYNJTBGRGU1277-22-38 20:27:00 Test Item Value Reference Range Interpretation Comments PT (test code = PT) 15.7 s 12.0-14.7 [facility] CenterZclrhcxDHOIEQNTXM3319-20-71 20:27:00 Test Item Value Reference Range Interpretation Comments INR (test code = INR) 1.24 1 0.85-1.17 [facility] CenterSskzmakXBVDGGRXUX9398-82-34 20:27:00 Test Item Value Reference Range Interpretation Comments PTT (test code = PTT) 31.0 s 22.9-35.8 [facility] CenterChoizdeKXDUXTIPXM3099-84-68 20:27:00 Test Item Value Reference Range Interpretation Comments Hgb (test code = Hgb) 13.5 12.0-16.0 [facility] CenterBiytgysDPYBOJRYSP3248-35-98 20:27:00 Test Item Value Reference Range Interpretation Comments RBC (test code = RBC) 4.35 4.20-5.40 [facility] CenterSfruhbdIWQJLTITQM6433-81-02 20:27:00 Test Item Value Reference Range Interpretation Comments RDW (test code = RDW) 13.4 11.5-14.5 [facility] CenterDshyhaxTCBKXOXAPS4307-78-57 20:27:00 Test Item Value Reference Range Interpretation Comments WBC (test code = WBC) 9.4 3.7-10.4 [facility] CenterZsgmvnlJBGONUCGSD1173-01-50 20:27:00 Test Item Value Reference Range Interpretation Comments MCHC (test code = MCHC) 34.7 32.0-36.0 [facility] CenterNxfulrfTXGRGIIUUW0431-59-14 20:27:00 Test Item Value Reference Range Interpretation Comments MCH (test code = MCH) 31.0 pg 27.0-31.0 [facility] CenterVahjavnJCCTSVSSMW2906-65-01 20:27:00 Test Item Value Reference Range Interpretation Comments Hct (test code = Hct) 38.8 36.0-48.0 [facility] CenterZxpxwytPEIBTGOLVA8789-53-38 20:27:00 Test Item Value Reference Range Interpretation Comments MCV (test code = MCV) 89.4 80.0-98.0 [facility] CenterUvkbphhBXNZBVRDJX8932-85-15 20:27:00 Test Item Value Reference Range Interpretation Comments MPV (test code = MPV) 8.2 7.4-10.4 [facility] HospitalPzshnnhVXDOVHMKEZ0390-17-52 20:27:00 Test Item Value Reference Range Interpretation Comments Platelet (test code = Platelet) 238 133-450 [facility]XmmtbzsWWERDBZGCL3184-72-05 20:27:00 Test Item Value Reference Range Interpretation Comments Ethanol Lvl (test code = Ethanol Lvl) no [facility]HmutofeALVSPTUEVO9389-29-36 20:27:00 Test Item Value Reference Range Interpretation Comments Etoh (%) (test code = Etoh (%)) no gt [facility] CenterEpo[facility] 05:19:00 Test Item Value Reference Range Interpretation Comments Troponin-I (test code no gt See_Comment [Auto mated message] The = Troponin-I) system which g enerated this result transmit kuldip reference range : <=0.40. The reference r nilam was not used to interpr et this result as abiodun l/abnormal. [facility] CenterE[facility] 05:19:00 Test Item Value Reference Range Interpretation Comments Troponin-I (test code no gt See_Comment [Auto mated message] The = Troponin-I) system which g enerated this result transmit kuldip reference range : <=0.40. The reference r nilam was not used to interpr et this result as abiodun l/abnormal. [facility] 05:19:00 Test Item Value Reference Range Interpretation Comments Troponin-I (test code no gt See_Comment [Auto mated message] The = Troponin-I) system which g enerated this result transmit kuldip reference range : <=0.40. The reference r nilam was not used to interpr et this result as abiodun l/abnormal. [facility] 05:19:00 Test Item Value Reference Range Interpretation Comments Troponin-I (test code no gt See_Comment [Auto mated message] The = Troponin-I) system which g enerated this result transmit kuldip reference range : <=0.40. The reference r nilam was not used to interpr et this result as abiodun l/abnormal. [facility] 05:19:00 Test Item Value Reference Range Interpretation Comments Troponin-I (test code no gt See_Comment [Auto mated message] The = Troponin-I) system which g enerated this result transmit kuldip reference range : <=0.40. The reference r nilam was not used to interpr et this result as abiodun l/abnormal. [facility] [employer]2018-08-03 05:19:00 Test Item Value Reference Range Interpretation Comments Troponin-I (test code no gt See_Comment [Auto mated message] The = Troponin-I) system which g enerated this result transmit kuldip reference range : <=0.40. The reference r nilam was not used to interpr et this result as abiodun l/abnormal. [facility] [employer]2018-08-03 05:19:00 Test Item Value Reference Range Interpretation Comments Troponin-I (test code no gt See_Comment [Auto mated message] The = Troponin-I) system which g enerated this result transmit kuldip reference range : <=0.40. The reference r nilam was not used to interpr et this result as abiodun l/abnormal. [facility] [employer]2018-08-03 01:51:00 Test Item Value Reference Range Interpretation Comments Total CK (test code = Total CK) 121 12-191 [facility] [employer]2018-08-03 01:51:00 Test Item Value Reference Range Interpretation Comments Troponin-I (test code no gt See_Comment [Auto mated message] The = Troponin-I) system which g enerated this result transmit kuldip reference range : <=0.40. The reference r nilam was not used to interpr et this result as abiodun l/abnormal. [facility] [employer]2018-08-03 01:51:00 Test Item Value Reference Range Interpretation Comments CK MB (test code = CK MB) no gt 0.5-3.6 [facility] [employer]2018-08-03 01:51:00 Test Item Value Reference Range Interpretation Comments CK MB Index (test no gt See_Comment [Automate d message] The code = CK MB Index) system w [facility] generated this result transmit kuldip reference range : <=2.5. The reference range was not used to interpr et this result as abiodun l/abnormal. [facility] [employer] FDGAX5557-09-65 01:51:00 Test Item Value Reference Range Interpretation Comments Lipase Lvl (test code = Lipase Lvl) 217 73-393 [facility]2018-08-03 01:51:00 Test Item Value Reference Range Interpretation Comments Total Protein (test code = Total 8.4 6.4-8.4 Protein) [facility]2018-08-03 01:51:00 Test Item Value Reference Range Interpretation Comments Albumin Lvl (test code = Albumin Lvl) 3.7 3.5-5.0 [facility]2018-08-03 01:51:00 Test Item Value Reference Range Interpretation Comments ALT (test code = ALT) 24 See_Comment [Auto mated message] The system which ge nerated this result transmit kuldip reference range : <=65. The reference range was not used to interpr et this result as abiodun l/abnormal. [place] 583988-08-03 01:51:00 Test Item Value Reference Range Interpretation Comments AST (test code = AST) 18 See_Comment [Auto mated message] The system which ge nerated this result transmit kuldip reference range : <=37. The reference range was not used to interpr et this result as abiodun l/abnormal. [facility]2018-08-03 01:51:00 Test Item Value Reference Range Interpretation Comments Bili Direct (test code 0.1 See_Comment [Aut omated message] The = Bili Direct) system which generated this result tra nsmitted reference range : <=0.3. The reference r nilam was not used to int erpret this result as abiodun l/abnormal. [facility]2018-08-03 01:51:00 Test Item Value Reference Range Interpretation Comments Alk Phos (test code = Alk Phos) 86 39-136 [facility]2018-08-03 01:51:00 Test Item Value Reference Range Interpretation Comments Bili Total (test code = Bili Total) 0.6 0.2-1.3 [facility]2018-08-03 01:51:00 Test Item Value Reference Range Interpretation Comments Bili Indirect (test 0.5 See_Comment [Automa kuldip message] The code = Bili Indirect) system which generated this result tra nsmitted reference range : <=1.0. The reference r nilam was not used to int erpret this result as normal/abnormal . [place] [address]-08-03 01:51:00 Test Item Value Reference Range Interpretation Comments Globulin (test code = Globulin) 4.7 2.7-4.2 [facility]2018-08-03 01:51:00 Test Item Value Reference Range Interpretation Comments A/G Ratio (test code = A/G Ratio) 0.8 1 0.7-1.6 [facility]2018-08-03 01:51:00 Test Item Value Reference Range Interpretation Comments eGFR (test code = eGFR) 124 [facility]2018-08-03 01:51:00 Test Item Value Reference Range Interpretation Comments Creatinine Lvl (test code = Creatinine 0.70 0.50-1.40 Lvl) [facility]2018-08-03 01:51:00 Test Item Value Reference Range Interpretation Comments Sodium Lvl (test code = Sodium Lvl) 134 135-145 [facility]2018-08-03 01:51:00 Test Item Value Reference Range Interpretation Comments Potassium Lvl (test code = Potassium 3.6 3.5-5.1 Lvl) [facility]2018-08-03 01:51:00 Test Item Value Reference Range Interpretation Comments CO2 (test code = CO2) 25 24-32 [facility]2018-08-03 01:51:00 Test Item Value Reference Range Interpretation Comments Chloride Lvl (test code = Chloride Lvl) 103 95-109 [facility]2018-08-03 01:51:00 Test Item Value Reference Range Interpretation Comments Calcium Lvl (test code = Calcium Lvl) 10.3 8.5-10.5 [facility]2018-08-03 01:51:00 Test Item Value Reference Range Interpretation Comments Glucose Lvl (test code = Glucose Lvl) 93 70-99 [facility]2018-08-03 01:51:00 Test Item Value Reference Range Interpretation Comments BUN (test code = BUN) 8 7-22 [facility]2018-08-03 01:51:00 Test Item Value Reference Range Interpretation Comments AGAP (test code = AGAP) 9.6 10.0-20.0 [facility] CenterLqugkywUCBHIGNVPO8552-85-15 01:51:00 Test Item Value Reference Range Interpretation Comments Basophils # (test code 0.0 See_Comment [Aut omated message] The = Basophils #) system which generated this result tra nsmitted reference range : <=0.2. The reference r nilam was not used to int erpret this result as normal/abnormal . [facility] CenterOsiyarrZTNZCHCFWC3862-83-82 01:51:00 Test Item Value Reference Range Interpretation Comments Lymphocytes # (test code = Lymphocytes 2.4 1.0-5.5 #) [facility] CenterGbkfbyaZDITQPCACA9677-37-27 01:51:00 Test Item Value Reference Range Interpretation Comments Monocytes # (test code 0.6 See_Comment [Aut omated message] The = Monocytes #) system which generated this result tra nsmitted reference range : <=0.8. The reference r nilam was not used to int erpret this result as normal/abnormal . [facility] CenterBwpdkfaXEKJBOGBNA7548-36-68 01:51:00 Test Item Value Reference Range Interpretation Comments Eosinophils # (test code 0.1 See_Comment [A utomated message] The = Eosinophils #) system wh h generated this result tra nsmitted reference range : <=0.5. The reference r nilam was not used to int erpret this result as normal/abnormal . [facility] CenterMayxflkCCFIMENNNN5044-13-71 01:51:00 Test Item Value Reference Range Interpretation Comments Eosinophils (test code = 2.1 See_Comment [A utomated message] The Eosinophils) system which ge nerated this result tra nsmitted reference range : <=4.0. The reference r nilam was not used to int erpret this result as normal/abnormal . [facility] CenterSlndazqSIPKIESMDE5199-25-64 01:51:00 Test Item Value Reference Range Interpretation Comments Basophils (test code = 0.4 See_Comment [Aut omated message] The Basophils) system which ge nerated this result tra nsmitted reference range : <=1.0. The reference r nilam was not used to int erpret this result as normal/abnormal . [facility] CenterWzckvmoQSRCCKMWAT0783-25-01 01:51:00 Test Item Value Reference Range Interpretation Comments Neutrophils # (test code = Neutrophils 3.7 1.5-8.1 #) [facility] CenterOarbfiyRQEHTQRVDJ8323-61-52 01:51:00 Test Item Value Reference Range Interpretation Comments Lymphocytes (test code = Lymphocytes) 35.4 20.0-40.0 [facility] CenterKlmawqzRVRUUOTQEH2543-19-37 01:51:00 Test Item Value Reference Range Interpretation Comments Monocytes (test code = Monocytes) 8.2 2.0-12.0 [facility] CenterCzyhmzlYGFBXWJPKK3307-34-76 01:51:00 Test Item Value Reference Range Interpretation Comments Segs (test code = Segs) 53.9 45.0-75.0 [facility] CenterYqygsxfGTMOCVXZCK6674-43-52 01:51:00 Test Item Value Reference Range Interpretation Comments MPV (test code = MPV) 7.8 7.4-10.4 [facility] CenterVqrxtkoDYQQPWBOVF6788-78-40 01:51:00 Test Item Value Reference Range Interpretation Comments Platelet (test code = Platelet) 251 133-450 [facility] CenterXcehubuDMSPOUXFID4077-68-33 01:51:00 Test Item Value Reference Range Interpretation Comments RDW (test code = RDW) 13.4 11.5-14.5 [facility] CenterNlgxzfmPWTVGCCBNG2685-12-97 01:51:00 Test Item Value Reference Range Interpretation Comments MCHC (test code = MCHC) 34.1 32.0-36.0 [facility] CenterRkyrwnkGOTSVOKVUX8236-63-70 01:51:00 Test Item Value Reference Range Interpretation Comments MCH (test code = MCH) 30.7 pg 27.0-31.0 [facility] CenterCpuiyllMYUCSVIZUS7914-38-46 01:51:00 Test Item Value Reference Range Interpretation Comments MCV (test code = MCV) 90.0 80.0-98.0 [facility] CenterTlkhwdvTNUGUHSYVU5292-28-39 01:51:00 Test Item Value Reference Range Interpretation Comments Hct (test code = Hct) 40.4 36.0-48.0 [facility] CenterBfmgbcgVCNIUYUDJU2045-19-47 01:51:00 Test Item Value Reference Range Interpretation Comments Hgb (test code = Hgb) 13.8 12.0-16.0 [facility] CenterUmvtimoFHMMQYEUVI2281-26-12 01:51:00 Test Item Value Reference Range Interpretation Comments RBC (test code = RBC) 4.49 4.20-5.40 [facility] CenterXqdzsztYPCYFDOTOD1240-32-00 01:51:00 Test Item Value Reference Range Interpretation Comments WBC (test code = WBC) 6.9 3.7-10.4 [facility] HospitalCARDIAC MTNKLRH7688-87-79 01:51:00 Test Item Value Reference Range Interpretation Comments Total CK (test code = Total CK) 121 12-191 [facility] CenterSafeTacMag FIVVBIV2650-10-01 01:51:00 Test Item Value Reference Range Interpretation Comments Troponin-I (test code no gt See_Comment [Auto mated message] The = Troponin-I) system which g enerated this result transmit kuldip reference range : <=0.40. The reference r nilam was not used to interpr et this result as abiodun l/abnormal. [facility] CenterSafeTacMag BGTCXCH1425-57-11 01:51:00 Test Item Value Reference Range Interpretation Comments CK MB (test code = CK MB) no gt 0.5-3.6 [facility] CenterSafeTacMag BSSTUAU6823-40-55 01:51:00 Test Item Value Reference Range Interpretation Comments CK MB Index (test no gt See_Comment [Automate d message] The code = CK MB Index) system w [facility] generated this result transmit kuldip reference range : <=2.5. The reference range was not used to interpr et this result as abiodun l/abnormal. [facility] [employer]2018-08-03 01:51:00 Test Item Value Reference Range Interpretation Comments Lipase Lvl (test code = Lipase Lvl) 217 73-393 [facility] [employer] [id number] 01:51:00 Test Item Value Reference Range Interpretation Comments Total Protein (test code = Total 8.4 6.4-8.4 Protein) [facility] [employer] [id number] 01:51:00 Test Item Value Reference Range Interpretation Comments Albumin Lvl (test code = Albumin Lvl) 3.7 3.5-5.0 [facility] [employer]2018-08-03 01:51:00 Test Item Value Reference Range Interpretation Comments ALT (test code = ALT) 24 See_Comment [Auto mated message] The system which ge nerated this result transmit kuldip reference range : <=65. The reference range was not used to interpr et this result as abiodun l/abnormal. [employer]2018-08-03 01:51:00 Test Item Value Reference Range Interpretation Comments AST (test code = AST) 18 See_Comment [Auto mated message] The system which ge nerated this result transmit kuldip reference range : <=37. The reference range was not used to interpr et this result as abiodun l/abnormal. [facility]2018-08-03 01:51:00 Test Item Value Reference Range Interpretation Comments Bili Direct (test code 0.1 See_Comment [Aut omated message] The = Bili Direct) system which generated this result tra nsmitted reference range : <=0.3. The reference r nilam was not used to int erpret this result as abiodun l/abnormal. [facility]2018-08-03 01:51:00 Test Item Value Reference Range Interpretation Comments Alk Phos (test code = Alk Phos) 86 39-136 [facility]2018-08-03 01:51:00 Test Item Value Reference Range Interpretation Comments Bili Total (test code = Bili Total) 0.6 0.2-1.3 [facility]2018-08-03 01:51:00 Test Item Value Reference Range Interpretation Comments Bili Indirect (test 0.5 See_Comment [Automa kuldip message] The code = Bili Indirect) system which generated this result tra nsmitted reference range : <=1.0. The reference r nilam was not used to int erpret this result as normal/abnormal . [place] [id number] 01:51:00 Test Item Value Reference Range Interpretation Comments Globulin (test code = Globulin) 4.7 2.7-4.2 [place] 583988-08-03 01:51:00 Test Item Value Reference Range Interpretation Comments A/G Ratio (test code = A/G Ratio) 0.8 1 0.7-1.6 [facility]2018-08-03 01:51:00 Test Item Value Reference Range Interpretation Comments eGFR (test code = eGFR) 124 [facility]2018-08-03 01:51:00 Test Item Value Reference Range Interpretation Comments Creatinine Lvl (test code = Creatinine 0.70 0.50-1.40 Lvl) [facility]2018-08-03 01:51:00 Test Item Value Reference Range Interpretation Comments Sodium Lvl (test code = Sodium Lvl) 134 135-145 [facility]2018-08-03 01:51:00 Test Item Value Reference Range Interpretation Comments Potassium Lvl (test code = Potassium 3.6 3.5-5.1 Lvl) [facility]2018-08-03 01:51:00 Test Item Value Reference Range Interpretation Comments CO2 (test code = CO2) 25 24-32 [facility]2018-08-03 01:51:00 Test Item Value Reference Range Interpretation Comments Chloride Lvl (test code = Chloride Lvl) 103 95-109 [facility]2018-08-03 01:51:00 Test Item Value Reference Range Interpretation Comments Calcium Lvl (test code = Calcium Lvl) 10.3 8.5-10.5 [place] 583988-08-03 01:51:00 Test Item Value Reference Range Interpretation Comments Glucose Lvl (test code = Glucose Lvl) 93 70-99 [facility]2018-08-03 01:51:00 Test Item Value Reference Range Interpretation Comments BUN (test code = BUN) 8 7-22 [facility]2018-08-03 01:51:00 Test Item Value Reference Range Interpretation Comments AGAP (test code = AGAP) 9.6 10.0-20.0 [facility]OsoamcfUUXFYWUUZQ3140-90-94 01:51:00 Test Item Value Reference Range Interpretation Comments Basophils # (test code 0.0 See_Comment [Aut omated message] The = Basophils #) system which generated this result tra nsmitted reference range : <=0.2. The reference r nilam was not used to int erpret this result as normal/abnormal . [facility] CenterAtzlrjpSIBDVKYINQ5353-83-81 01:51:00 Test Item Value Reference Range Interpretation Comments Lymphocytes # (test code = Lymphocytes 2.4 1.0-5.5 #) [facility] CenterXhurdrpNJUUPMJTBG6010-72-93 01:51:00 Test Item Value Reference Range Interpretation Comments Monocytes # (test code 0.6 See_Comment [Aut omated message] The = Monocytes #) system which generated this result tra nsmitted reference range : <=0.8. The reference r nilam was not used to int erpret this result as normal/abnormal . [facility] CenterJmlrksiWBFYRBDNMV3229-20-44 01:51:00 Test Item Value Reference Range Interpretation Comments Eosinophils # (test code 0.1 See_Comment [A utomated message] The = Eosinophils #) system whic h generated this result tra nsmitted reference range : <=0.5. The reference r nilam was not used to int erpret this result as normal/abnormal . [facility] CenterOnvjcbyCJULELHGTL7351-85-12 01:51:00 Test Item Value Reference Range Interpretation Comments Eosinophils (test code = 2.1 See_Comment [A utomated message] The Eosinophils) system which ge nerated this result tra nsmitted reference range : <=4.0. The reference r nilam was not used to int erpret this result as normal/abnormal . [facility] CenterNeochcjFQYEKXTAUA9714-79-50 01:51:00 Test Item Value Reference Range Interpretation Comments Basophils (test code = 0.4 See_Comment [Aut omated message] The Basophils) system which ge nerated this result tra nsmitted reference range : <=1.0. The reference r nilam was not used to int erpret this result as normal/abnormal . [facility] CenterOynyecmLGSSVJNYJA8179-55-22 01:51:00 Test Item Value Reference Range Interpretation Comments Neutrophils # (test code = Neutrophils 3.7 1.5-8.1 #) [facility] CenterAbnoqdqSJWKURIHFO9385-14-31 01:51:00 Test Item Value Reference Range Interpretation Comments Lymphocytes (test code = Lymphocytes) 35.4 20.0-40.0 [facility] CenterGcwqnzxDISSAGDBZW8865-60-33 01:51:00 Test Item Value Reference Range Interpretation Comments Monocytes (test code = Monocytes) 8.2 2.0-12.0 [facility] CenterVmwkjafUCNOXASSES1556-80-92 01:51:00 Test Item Value Reference Range Interpretation Comments Segs (test code = Segs) 53.9 45.0-75.0 [facility] CenterOnhqozlKOHLZDVSAP3522-92-49 01:51:00 Test Item Value Reference Range Interpretation Comments MPV (test code = MPV) 7.8 7.4-10.4 [facility] CenterPbwduevYDOETWQKVA8158-64-14 01:51:00 Test Item Value Reference Range Interpretation Comments Platelet (test code = Platelet) 251 133-450 [facility] CenterZiiipflKULDYFDIQM1806-50-89 01:51:00 Test Item Value Reference Range Interpretation Comments RDW (test code = RDW) 13.4 11.5-14.5 [facility] CenterQcpcuxdSZTRZLEJKT1968-77-17 01:51:00 Test Item Value Reference Range Interpretation Comments MCHC (test code = MCHC) 34.1 32.0-36.0 [facility] HospitalSdqugubHCKILXIJLP6581-57-73 01:51:00 Test Item Value Reference Range Interpretation Comments MCH (test code = MCH) 30.7 pg 27.0-31.0 [facility] HospitalBlzyzidFIDIOHZKKM8718-38-29 01:51:00 Test Item Value Reference Range Interpretation Comments MCV (test code = MCV) 90.0 80.0-98.0 [facility] HospitalRilnlacZZTPZWGBRP5776-37-63 01:51:00 Test Item Value Reference Range Interpretation Comments Hct (test code = Hct) 40.4 36.0-48.0 [facility] HospitalLgftgkiRVJBXCKPOY0486-96-64 01:51:00 Test Item Value Reference Range Interpretation Comments Hgb (test code = Hgb) 13.8 12.0-16.0 [facility] HospitalCwbjemoXMMECLSCTC8446-03-01 01:51:00 Test Item Value Reference Range Interpretation Comments RBC (test code = RBC) 4.49 4.20-5.40 [facility] HospitalIfoelfyFFHKDHVUWD6438-92-26 01:51:00 Test Item Value Reference Range Interpretation Comments WBC (test code = WBC) 6.9 3.7-10.4 [facility] HospitalCrucialtec TULSMOF3711-00-83 01:51:00 Test Item Value Reference Range Interpretation Comments Total CK (test code = Total CK) 121 12-191 [facility] MHSLHMQ5600-57-62 01:51:00 Test Item Value Reference Range Interpretation Comments Troponin-I (test code no gt See_Comment [Auto mated message] The = Troponin-I) system which g enerated this result transmit kuldip reference range : <=0.40. The reference r nilam was not used to interpr et this result as abiodun l/abnormal. [facility] CenterAmagi Media Labs RNWEDMA8155-87-43 01:51:00 Test Item Value Reference Range Interpretation Comments CK MB (test code = CK MB) no gt 0.5-3.6 [facility] CenterBreeze TechnologyCARAC DVJFNBV0058-15-01 01:51:00 Test Item Value Reference Range Interpretation Comments CK MB Index (test no gt See_Comment [Automate d message] The code = CK MB Index) system w [facility] generated this result transmit kuldip reference range : <=2.5. The reference range was not used to interpr et this result as abiodun l/abnormal. [facility]2018-08-03 01:51:00 Test Item Value Reference Range Interpretation Comments Lipase Lvl (test code = Lipase Lvl) 217 73-393 [facility]2018-08-03 01:51:00 Test Item Value Reference Range Interpretation Comments Total Protein (test code = Total 8.4 6.4-8.4 Protein) [facility]2018-08-03 01:51:00 Test Item Value Reference Range Interpretation Comments Albumin Lvl (test code = Albumin Lvl) 3.7 3.5-5.0 [place] 583988-08-03 01:51:00 Test Item Value Reference Range Interpretation Comments ALT (test code = ALT) 24 See_Comment [Auto mated message] The system which ge nerated this result transmit kuldip reference range : <=65. The reference range was not used to interpr et this result as abiodun l/abnormal. [place] 583988-08-03 01:51:00 Test Item Value Reference Range Interpretation Comments AST (test code = AST) 18 See_Comment [Auto mated message] The system which ge nerated this result transmit kuldip reference range : <=37. The reference range was not used to interpr et this result as abiodun l/abnormal. [facility]2018-08-03 01:51:00 Test Item Value Reference Range Interpretation Comments Bili Direct (test code 0.1 See_Comment [Aut omated message] The = Bili Direct) system which generated this result tra nsmitted reference range : <=0.3. The reference r nilam was not used to int erpret this result as abiodun l/abnormal. [facility]2018-08-03 01:51:00 Test Item Value Reference Range Interpretation Comments Alk Phos (test code = Alk Phos) 86 39-136 [facility]2018-08-03 01:51:00 Test Item Value Reference Range Interpretation Comments Bili Total (test code = Bili Total) 0.6 0.2-1.3 [place] 583988-08-03 01:51:00 Test Item Value Reference Range Interpretation Comments Bili Indirect (test 0.5 See_Comment [Automa kuldip message] The code = Bili Indirect) system which generated this result tra nsmitted reference range : <=1.0. The reference r nilam was not used to int erpret this result as normal/abnormal . [facility]2018-08-03 01:51:00 Test Item Value Reference Range Interpretation Comments Globulin (test code = Globulin) 4.7 2.7-4.2 [facility]2018-08-03 01:51:00 Test Item Value Reference Range Interpretation Comments A/G Ratio (test code = A/G Ratio) 0.8 1 0.7-1.6 [facility]2018-08-03 01:51:00 Test Item Value Reference Range Interpretation Comments eGFR (test code = eGFR) 124 [facility]2018-08-03 01:51:00 Test Item Value Reference Range Interpretation Comments Creatinine Lvl (test code = Creatinine 0.70 0.50-1.40 Lvl) [facility]2018-08-03 01:51:00 Test Item Value Reference Range Interpretation Comments Sodium Lvl (test code = Sodium Lvl) 134 135-145 [facility]2018-08-03 01:51:00 Test Item Value Reference Range Interpretation Comments Potassium Lvl (test code = Potassium 3.6 3.5-5.1 Lvl) [facility]2018-08-03 01:51:00 Test Item Value Reference Range Interpretation Comments CO2 (test code = CO2) 25 24-32 [facility]2018-08-03 01:51:00 Test Item Value Reference Range Interpretation Comments Chloride Lvl (test code = Chloride Lvl) 103 95-109 [facility]2018-08-03 01:51:00 Test Item Value Reference Range Interpretation Comments Calcium Lvl (test code = Calcium Lvl) 10.3 8.5-10.5 [facility]2018-08-03 01:51:00 Test Item Value Reference Range Interpretation Comments Glucose Lvl (test code = Glucose Lvl) 93 70-99 [facility]2018-08-03 01:51:00 Test Item Value Reference Range Interpretation Comments BUN (test code = BUN) 8 7-22 [facility]2018-08-03 01:51:00 Test Item Value Reference Range Interpretation Comments AGAP (test code = AGAP) 9.6 10.0-20.0 [facility] CenterVkvwohzRBZQRCOAJH9485-45-91 01:51:00 Test Item Value Reference Range Interpretation Comments Basophils # (test code 0.0 See_Comment [Aut omated message] The = Basophils #) system which generated this result tra nsmitted reference range : <=0.2. The reference r nilam was not used to int erpret this result as normal/abnormal . [facility] CenterLxjbjgkQFEQOZMWRR1723-01-55 01:51:00 Test Item Value Reference Range Interpretation Comments Lymphocytes # (test code = Lymphocytes 2.4 1.0-5.5 #) [facility] CenterOaowyuoPYGPXDFZNO2658-67-24 01:51:00 Test Item Value Reference Range Interpretation Comments Monocytes # (test code 0.6 See_Comment [Aut omated message] The = Monocytes #) system which generated this result tra nsmitted reference range : <=0.8. The reference r nilam was not used to int erpret this result as normal/abnormal . [facility] CenterGsmgaliXCGDELAHHZ4112-42-60 01:51:00 Test Item Value Reference Range Interpretation Comments Eosinophils # (test code 0.1 See_Comment [A utomated message] The = Eosinophils #) system whic h generated this result tra nsmitted reference range : <=0.5. The reference r nilam was not used to int erpret this result as normal/abnormal . [facility] CenterZwpqwycOWDAPDZXSK5660-45-95 01:51:00 Test Item Value Reference Range Interpretation Comments Eosinophils (test code = 2.1 See_Comment [A utomated message] The Eosinophils) system which ge nerated this result tra nsmitted reference range : <=4.0. The reference r nilam was not used to int erpret this result as normal/abnormal . [facility] CenterTdbluerZEGCJOMNYP5315-42-48 01:51:00 Test Item Value Reference Range Interpretation Comments Basophils (test code = 0.4 See_Comment [Aut omated message] The Basophils) system which ge nerated this result tra nsmitted reference range : <=1.0. The reference r nilam was not used to int erpret this result as normal/abnormal . [facility] CenterWaxhuzpWLAPUHDTKB2224-33-20 01:51:00 Test Item Value Reference Range Interpretation Comments Neutrophils # (test code = Neutrophils 3.7 1.5-8.1 #) [facility] CenterVotjqbrVQSNVUNQEO0637-14-60 01:51:00 Test Item Value Reference Range Interpretation Comments Lymphocytes (test code = Lymphocytes) 35.4 20.0-40.0 [facility] CenterNlfbbvlEQJTTKECKI1477-54-97 01:51:00 Test Item Value Reference Range Interpretation Comments Monocytes (test code = Monocytes) 8.2 2.0-12.0 [facility] CenterCbtnxukNBDQZYZCBQ0698-95-01 01:51:00 Test Item Value Reference Range Interpretation Comments Segs (test code = Segs) 53.9 45.0-75.0 [facility] CenterFpzkjlwPRSBGUHWIK8218-50-09 01:51:00 Test Item Value Reference Range Interpretation Comments MPV (test code = MPV) 7.8 7.4-10.4 [facility] CenterArlgggpOMZQZURJCL0878-35-23 01:51:00 Test Item Value Reference Range Interpretation Comments Platelet (test code = Platelet) 251 133-450 [facility] CenterPtxjifkMIVHPCHMOA6959-67-63 01:51:00 Test Item Value Reference Range Interpretation Comments RDW (test code = RDW) 13.4 11.5-14.5 [facility] CenterMwxufnsUAHKSJSCAQ0658-29-98 01:51:00 Test Item Value Reference Range Interpretation Comments MCHC (test code = MCHC) 34.1 32.0-36.0 [facility] CenterWavflosORRYTCKOYI9775-75-56 01:51:00 Test Item Value Reference Range Interpretation Comments MCH (test code = MCH) 30.7 pg 27.0-31.0 [facility] CenterIypgzhrIDKVSHCPXO5609-32-97 01:51:00 Test Item Value Reference Range Interpretation Comments MCV (test code = MCV) 90.0 80.0-98.0 [facility] CenterOrtcwgpXYKZCWDXQT9774-28-39 01:51:00 Test Item Value Reference Range Interpretation Comments Hct (test code = Hct) 40.4 36.0-48.0 [facility] CenterLuolizoNMFDOCUZIY4087-47-72 01:51:00 Test Item Value Reference Range Interpretation Comments Hgb (test code = Hgb) 13.8 12.0-16.0 [place] 434028-08-03 01:51:00 Test Item Value Reference Range Interpretation Comments RBC (test code = RBC) 4.49 4.20-5.40 [facility] CenterLaztjtjAFCXPXMVON4861-92-56 01:51:00 Test Item Value Reference Range Interpretation Comments WBC (test code = WBC) 6.9 3.7-10.4 [employer] VBDYVYU9250-34-52 01:51:00 Test Item Value Reference Range Interpretation Comments Total CK (test code = Total CK) 121 12-191 [facility] [employer]SnapannCARFisgoAC ZFBNVZF3176-14-13 01:51:00 Test Item Value Reference Range Interpretation Comments Troponin-I (test code no gt See_Comment [Auto mated message] The = Troponin-I) system which g enerated this result transmit kuldip reference range : <=0.40. The reference r nilam was not used to interpr et this result as abiodun l/abnormal. [facility] [employer] [id number] 01:51:00 Test Item Value Reference Range Interpretation Comments CK MB (test code = CK MB) no gt 0.5-3.6 [facility] [employer] XNQMKXW7648-75-04 01:51:00 Test Item Value Reference Range Interpretation Comments CK MB Index (test no gt See_Comment [Automate d message] The code = CK MB Index) system w [facility] generated this result transmit kuldip reference range : <=2.5. The reference range was not used to interpr et this result as abiodun l/abnormal. [employer] [id number] 01:51:00 Test Item Value Reference Range Interpretation Comments Lipase Lvl (test code = Lipase Lvl) 217 73-393 [facility] [employer] [id number] 01:51:00 Test Item Value Reference Range Interpretation Comments Total Protein (test code = Total 8.4 6.4-8.4 Protein) [facility] [employer] [id number] 01:51:00 Test Item Value Reference Range Interpretation Comments Albumin Lvl (test code = Albumin Lvl) 3.7 3.5-5.0 [facility] [employer] [id number] 01:51:00 Test Item Value Reference Range Interpretation Comments ALT (test code = ALT) 24 See_Comment [Auto mated message] The system which ge nerated this result transmit kuldip reference range : <=65. The reference range was not used to interpr et this result as abiodun l/abnormal. [employer] [id number] 01:51:00 Test Item Value Reference Range Interpretation Comments AST (test code = AST) 18 See_Comment [Auto mated message] The system which ge nerated this result transmit kuldip reference range : <=37. The reference range was not used to interpr et this result as abiodun l/abnormal. [facility]2018-08-03 01:51:00 Test Item Value Reference Range Interpretation Comments Bili Direct (test code 0.1 See_Comment [Aut omated message] The = Bili Direct) system which generated this result tra nsmitted reference range : <=0.3. The reference r nilam was not used to int erpret this result as abiodun l/abnormal. [facility]2018-08-03 01:51:00 Test Item Value Reference Range Interpretation Comments Alk Phos (test code = Alk Phos) 86 39-136 [facility]2018-08-03 01:51:00 Test Item Value Reference Range Interpretation Comments Bili Total (test code = Bili Total) 0.6 0.2-1.3 [facility]2018-08-03 01:51:00 Test Item Value Reference Range Interpretation Comments Bili Indirect (test 0.5 See_Comment [Automa kuldip message] The code = Bili Indirect) system which generated this result tra nsmitted reference range : <=1.0. The reference r nilam was not used to int erpret this result as normal/abnormal . [facility]2018-08-03 01:51:00 Test Item Value Reference Range Interpretation Comments Globulin (test code = Globulin) 4.7 2.7-4.2 [facility]2018-08-03 01:51:00 Test Item Value Reference Range Interpretation Comments A/G Ratio (test code = A/G Ratio) 0.8 1 0.7-1.6 [facility]2018-08-03 01:51:00 Test Item Value Reference Range Interpretation Comments eGFR (test code = eGFR) 124 [facility]2018-08-03 01:51:00 Test Item Value Reference Range Interpretation Comments Creatinine Lvl (test code = Creatinine 0.70 0.50-1.40 Lvl) [facility]2018-08-03 01:51:00 Test Item Value Reference Range Interpretation Comments Sodium Lvl (test code = Sodium Lvl) 134 135-145 [facility]2018-08-03 01:51:00 Test Item Value Reference Range Interpretation Comments Potassium Lvl (test code = Potassium 3.6 3.5-5.1 Lvl) [facility]2018-08-03 01:51:00 Test Item Value Reference Range Interpretation Comments CO2 (test code = CO2) 25 24-32 [facility]2018-08-03 01:51:00 Test Item Value Reference Range Interpretation Comments Chloride Lvl (test code = Chloride Lvl) 103 95-109 [place] 583988-08-03 01:51:00 Test Item Value Reference Range Interpretation Comments Calcium Lvl (test code = Calcium Lvl) 10.3 8.5-10.5 [place] 583988-08-03 01:51:00 Test Item Value Reference Range Interpretation Comments Glucose Lvl (test code = Glucose Lvl) 93 70-99 [facility]2018-08-03 01:51:00 Test Item Value Reference Range Interpretation Comments BUN (test code = BUN) 8 7-22 [place] 583988-08-03 01:51:00 Test Item Value Reference Range Interpretation Comments AGAP (test code = AGAP) 9.6 10.0-20.0 [facility] CenterVqdtqaoPYIXFQUGGW5659-14-58 01:51:00 Test Item Value Reference Range Interpretation Comments Basophils # (test code 0.0 See_Comment [Aut omated message] The = Basophils #) system which generated this result tra nsmitted reference range : <=0.2. The reference r nilam was not used to int erpret this result as normal/abnormal . [facility] CenterUkpsrmkOZJYQFRDVN1103-64-53 01:51:00 Test Item Value Reference Range Interpretation Comments Lymphocytes # (test code = Lymphocytes 2.4 1.0-5.5 #) [facility] CenterTfgezdfXFPAXRNKLP2490-08-77 01:51:00 Test Item Value Reference Range Interpretation Comments Monocytes # (test code 0.6 See_Comment [Aut omated message] The = Monocytes #) system which generated this result tra nsmitted reference range : <=0.8. The reference r nilam was not used to int erpret this result as normal/abnormal . [facility] CenterAjkybylUIWKQFZQCA9783-17-48 01:51:00 Test Item Value Reference Range Interpretation Comments Eosinophils # (test code 0.1 See_Comment [A utomated message] The = Eosinophils #) system whic h generated this result tra nsmitted reference range : <=0.5. The reference r nilam was not used to int erpret this result as normal/abnormal . [facility] CenterNbynchiEMIUQRYYHZ5452-71-92 01:51:00 Test Item Value Reference Range Interpretation Comments Eosinophils (test code = 2.1 See_Comment [A utomated message] The Eosinophils) system which ge nerated this result tra nsmitted reference range : <=4.0. The reference r nilam was not used to int erpret this result as normal/abnormal . [facility] CenterBwsbmczEJOAEPKLRE1375-42-82 01:51:00 Test Item Value Reference Range Interpretation Comments Basophils (test code = 0.4 See_Comment [Aut omated message] The Basophils) system which ge nerated this result tra nsmitted reference range : <=1.0. The reference r inlam was not used to int erpret this result as normal/abnormal . [facility] CenterSribvuiBUUKZEMYPO2998-94-18 01:51:00 Test Item Value Reference Range Interpretation Comments Neutrophils # (test code = Neutrophils 3.7 1.5-8.1 #) [facility] CenterDttnguoMHMRMTISQG5077-78-28 01:51:00 Test Item Value Reference Range Interpretation Comments Lymphocytes (test code = Lymphocytes) 35.4 20.0-40.0 [facility] CenterJizwchkKBCICQURUT0599-44-93 01:51:00 Test Item Value Reference Range Interpretation Comments Monocytes (test code = Monocytes) 8.2 2.0-12.0 [facility] CenterZfbdlnrENNNEFNJXY1350-78-04 01:51:00 Test Item Value Reference Range Interpretation Comments Segs (test code = Segs) 53.9 45.0-75.0 [facility] CenterGhhedwpENZNYWLWXH0847-82-35 01:51:00 Test Item Value Reference Range Interpretation Comments MPV (test code = MPV) 7.8 7.4-10.4 [facility] CenterWdxpbdbEEPNCMWVYI3539-01-17 01:51:00 Test Item Value Reference Range Interpretation Comments Platelet (test code = Platelet) 251 133-450 [facility] CenterMtdvzgjARZLMXHLPX8685-97-24 01:51:00 Test Item Value Reference Range Interpretation Comments RDW (test code = RDW) 13.4 11.5-14.5 [facility] CenterQubipknNFJXXGYFZI8610-48-26 01:51:00 Test Item Value Reference Range Interpretation Comments MCHC (test code = MCHC) 34.1 32.0-36.0 [facility] CenterBxidxtzXWTWAKKIYP6061-38-56 01:51:00 Test Item Value Reference Range Interpretation Comments MCH (test code = MCH) 30.7 pg 27.0-31.0 [facility] CenterBianncaVHZZGFKSSD8939-05-80 01:51:00 Test Item Value Reference Range Interpretation Comments MCV (test code = MCV) 90.0 80.0-98.0 [facility] HospitalEuzvlyzTQWLUYQTYI6428-62-66 01:51:00 Test Item Value Reference Range Interpretation Comments Hct (test code = Hct) 40.4 36.0-48.0 [facility] HospitalZihntseXRVVFKMKIR3336-32-03 01:51:00 Test Item Value Reference Range Interpretation Comments Hgb (test code = Hgb) 13.8 12.0-16.0 [facility] HospitalFkvfoyeVUQBAQLYBF4072-54-83 01:51:00 Test Item Value Reference Range Interpretation Comments RBC (test code = RBC) 4.49 4.20-5.40 [facility] CenterZsuqppzHLFGBEHYCP4021-43-92 01:51:00 Test Item Value Reference Range Interpretation Comments WBC (test code = WBC) 6.9 3.7-10.4 [facility] CenterEpoque2018-[facility] 01:51:00 Test Item Value Reference Range Interpretation Comments Total CK (test code = Total CK) 121 12-191 [facility] HospitalDream VillageELKBBJG1738-61-79 01:51:00 Test Item Value Reference Range Interpretation Comments Troponin-I (test code no gt See_Comment [Auto mated message] The = Troponin-I) system which g enerated this result transmit kuldip reference range : <=0.40. The reference r nilam was not used to interpr et this result as abiodun l/abnormal. [facility] CenterAmagi Media Labs NBISBWF6928-31-00 01:51:00 Test Item Value Reference Range Interpretation Comments CK MB (test code = CK MB) no gt 0.5-3.6 [facility] CenterAmagi Media Labs FPIBYMY7645-35-23 01:51:00 Test Item Value Reference Range Interpretation Comments CK MB Index (test no gt See_Comment [Automate d message] The code = CK MB Index) system w [facility] generated this result transmit kuldip reference range : <=2.5. The reference range was not used to interpr et this result as abiodun l/abnormal. [place] 583988-08-03 01:51:00 Test Item Value Reference Range Interpretation Comments Lipase Lvl (test code = Lipase Lvl) 217 73-393 [facility]2018-08-03 01:51:00 Test Item Value Reference Range Interpretation Comments Total Protein (test code = Total 8.4 6.4-8.4 Protein) [facility]2018-08-03 01:51:00 Test Item Value Reference Range Interpretation Comments Albumin Lvl (test code = Albumin Lvl) 3.7 3.5-5.0 [place] 583988-08-03 01:51:00 Test Item Value Reference Range Interpretation Comments ALT (test code = ALT) 24 See_Comment [Auto mated message] The system which ge nerated this result transmit kuldip reference range : <=65. The reference range was not used to interpr et this result as abiodun l/abnormal. [facility]2018-08-03 01:51:00 Test Item Value Reference Range Interpretation Comments AST (test code = AST) 18 See_Comment [Auto mated message] The system which ge nerated this result transmit kuldip reference range : <=37. The reference range was not used to interpr et this result as abiodun l/abnormal. [facility]2018-08-03 01:51:00 Test Item Value Reference Range Interpretation Comments Bili Direct (test code 0.1 See_Comment [Aut omated message] The = Bili Direct) system which generated this result tra nsmitted reference range : <=0.3. The reference r nilam was not used to int erpret this result as abiodun l/abnormal. [facility]2018-08-03 01:51:00 Test Item Value Reference Range Interpretation Comments Alk Phos (test code = Alk Phos) 86 39-136 [facility]2018-08-03 01:51:00 Test Item Value Reference Range Interpretation Comments Bili Total (test code = Bili Total) 0.6 0.2-1.3 [facility]2018-08-03 01:51:00 Test Item Value Reference Range Interpretation Comments Bili Indirect (test 0.5 See_Comment [Automa kuldip message] The code = Bili Indirect) system which generated this result tra nsmitted reference range : <=1.0. The reference r nilam was not used to int erpret this result as normal/abnormal . [facility]2018-08-03 01:51:00 Test Item Value Reference Range Interpretation Comments Globulin (test code = Globulin) 4.7 2.7-4.2 [facility]2018-08-03 01:51:00 Test Item Value Reference Range Interpretation Comments A/G Ratio (test code = A/G Ratio) 0.8 1 0.7-1.6 [facility]2018-08-03 01:51:00 Test Item Value Reference Range Interpretation Comments eGFR (test code = eGFR) 124 [facility]2018-08-03 01:51:00 Test Item Value Reference Range Interpretation Comments Creatinine Lvl (test code = Creatinine 0.70 0.50-1.40 Lvl) [facility]2018-08-03 01:51:00 Test Item Value Reference Range Interpretation Comments Sodium Lvl (test code = Sodium Lvl) 134 135-145 [facility]2018-08-03 01:51:00 Test Item Value Reference Range Interpretation Comments Potassium Lvl (test code = Potassium 3.6 3.5-5.1 Lvl) [facility]2018-08-03 01:51:00 Test Item Value Reference Range Interpretation Comments CO2 (test code = CO2) 25 24-32 [facility]2018-08-03 01:51:00 Test Item Value Reference Range Interpretation Comments Chloride Lvl (test code = Chloride Lvl) 103 95-109 [facility]2018-08-03 01:51:00 Test Item Value Reference Range Interpretation Comments Calcium Lvl (test code = Calcium Lvl) 10.3 8.5-10.5 [facility]2018-08-03 01:51:00 Test Item Value Reference Range Interpretation Comments Glucose Lvl (test code = Glucose Lvl) 93 70-99 [facility]2018-08-03 01:51:00 Test Item Value Reference Range Interpretation Comments BUN (test code = BUN) 8 7-22 [facility]2018-08-03 01:51:00 Test Item Value Reference Range Interpretation Comments AGAP (test code = AGAP) 9.6 10.0-20.0 [facility] CenterXoembsrAUERLNGBDM6937-40-07 01:51:00 Test Item Value Reference Range Interpretation Comments Basophils # (test code 0.0 See_Comment [Aut omated message] The = Basophils #) system which generated this result tra nsmitted reference range : <=0.2. The reference r nilam was not used to int erpret this result as normal/abnormal . [facility] CenterHrmbozrFBDZGZDGBG8714-97-21 01:51:00 Test Item Value Reference Range Interpretation Comments Lymphocytes # (test code = Lymphocytes 2.4 1.0-5.5 #) [facility] CenterWxpfpduVUPGCUHZEQ2725-70-57 01:51:00 Test Item Value Reference Range Interpretation Comments Monocytes # (test code 0.6 See_Comment [Aut omated message] The = Monocytes #) system which generated this result tra nsmitted reference range : <=0.8. The reference r nilam was not used to int erpret this result as normal/abnormal . [facility] CenterUvylwsdMCTSYXYOWU1166-67-62 01:51:00 Test Item Value Reference Range Interpretation Comments Eosinophils # (test code 0.1 See_Comment [A utomated message] The = Eosinophils #) system whic h generated this result tra nsmitted reference range : <=0.5. The reference r nilam was not used to int erpret this result as normal/abnormal . [facility] CenterTvjsihiQPNIVROMRD6241-59-47 01:51:00 Test Item Value Reference Range Interpretation Comments Eosinophils (test code = 2.1 See_Comment [A utomated message] The Eosinophils) system which ge nerated this result tra nsmitted reference range : <=4.0. The reference r nilam was not used to int erpret this result as normal/abnormal . [facility] CenterUnzxhbbVIVOBFUUTZ6317-86-43 01:51:00 Test Item Value Reference Range Interpretation Comments Basophils (test code = 0.4 See_Comment [Aut omated message] The Basophils) system which ge nerated this result tra nsmitted reference range : <=1.0. The reference r nilam was not used to int erpret this result as normal/abnormal . [facility] CenterMmqcdxoWVDPZBRWLQ1600-19-63 01:51:00 Test Item Value Reference Range Interpretation Comments Neutrophils # (test code = Neutrophils 3.7 1.5-8.1 #) [facility] CenterWaxppciHODCHZODMA0707-24-55 01:51:00 Test Item Value Reference Range Interpretation Comments Lymphocytes (test code = Lymphocytes) 35.4 20.0-40.0 [facility] CenterBtjmsqcAMFZWUMQLD2077-33-24 01:51:00 Test Item Value Reference Range Interpretation Comments Monocytes (test code = Monocytes) 8.2 2.0-12.0 [facility] CenterZkgflpqNRUUWBXHFO1238-81-72 01:51:00 Test Item Value Reference Range Interpretation Comments Segs (test code = Segs) 53.9 45.0-75.0 [facility] CenterKfwkcxjUIATAZMTEN6521-54-16 01:51:00 Test Item Value Reference Range Interpretation Comments MPV (test code = MPV) 7.8 7.4-10.4 [facility] CenterOufyeocQMREABHJUF8195-77-71 01:51:00 Test Item Value Reference Range Interpretation Comments Platelet (test code = Platelet) 251 133-450 [facility] CenterKrtvnsdDPDIGBFJHD4280-67-18 01:51:00 Test Item Value Reference Range Interpretation Comments RDW (test code = RDW) 13.4 11.5-14.5 [facility] CenterXovakryFXKGOZSLPN3743-01-08 01:51:00 Test Item Value Reference Range Interpretation Comments MCHC (test code = MCHC) 34.1 32.0-36.0 [facility] CenterKtoxbpuWRHHBGZHCX9613-18-86 01:51:00 Test Item Value Reference Range Interpretation Comments MCH (test code = MCH) 30.7 pg 27.0-31.0 [facility] CenterLmghzrkMBGUKLKEZB7332-69-10 01:51:00 Test Item Value Reference Range Interpretation Comments MCV (test code = MCV) 90.0 80.0-98.0 [facility] CenterNivtgohICFLGUPHIW9265-26-49 01:51:00 Test Item Value Reference Range Interpretation Comments Hct (test code = Hct) 40.4 36.0-48.0 [facility] CenterLcpcxtrUSZSPWBKLH4205-74-69 01:51:00 Test Item Value Reference Range Interpretation Comments Hgb (test code = Hgb) 13.8 12.0-16.0 [facility] CenterOzkxlsnEWKMSJZPPX1692-45-91 01:51:00 Test Item Value Reference Range Interpretation Comments RBC (test code = RBC) 4.49 4.20-5.40 [facility] CenterEvhjsjhZWSOPIVNBS8895-16-94 01:51:00 Test Item Value Reference Range Interpretation Comments WBC (test code = WBC) 6.9 3.7-10.4 [facility] HospitalSiOnyx [id number] 01:51:00 Test Item Value Reference Range Interpretation Comments Total CK (test code = Total CK) 121 12-191 [facility] HospitalSiOnyx [id number] 01:51:00 Test Item Value Reference Range Interpretation Comments Troponin-I (test code no gt See_Comment [Auto mated message] The = Troponin-I) system which g enerated this result transmit kuldip reference range : <=0.40. The reference r nilam was not used to interpr et this result as abiodun l/abnormal. [facility] CenterSafeTacMag [id number] 01:51:00 Test Item Value Reference Range Interpretation Comments CK MB (test code = CK MB) no gt 0.5-3.6 [facility] CenterSafeTacMag QWVIDYQ2404-32-78 01:51:00 Test Item Value Reference Range Interpretation Comments CK MB Index (test no gt See_Comment [Automate d message] The code = CK MB Index) system w [facility] generated this result transmit ukldip reference range : <=2.5. The reference range was not used to interpr et this result as abiodun l/abnormal. [facility] [employer] [id number] 01:51:00 Test Item Value Reference Range Interpretation Comments Lipase Lvl (test code = Lipase Lvl) 217 73-393 [facility] [employer] [id number] 01:51:00 Test Item Value Reference Range Interpretation Comments Total Protein (test code = Total 8.4 6.4-8.4 Protein) [facility] [employer] [id number] 01:51:00 Test Item Value Reference Range Interpretation Comments Albumin Lvl (test code = Albumin Lvl) 3.7 3.5-5.0 [facility] [employer] [id number] 01:51:00 Test Item Value Reference Range Interpretation Comments ALT (test code = ALT) 24 See_Comment [Auto mated message] The system which ge nerated this result transmit kuldip reference range : <=65. The reference range was not used to interpr et this result as abiodun l/abnormal. [facility]2018-08-03 01:51:00 Test Item Value Reference Range Interpretation Comments AST (test code = AST) 18 See_Comment [Auto mated message] The system which ge nerated this result transmit kuldip reference range : <=37. The reference range was not used to interpr et this result as abiodun l/abnormal. [facility]2018-08-03 01:51:00 Test Item Value Reference Range Interpretation Comments Bili Direct (test code 0.1 See_Comment [Aut omated message] The = Bili Direct) system which generated this result tra nsmitted reference range : <=0.3. The reference r nilam was not used to int erpret this result as abiodun l/abnormal. [facility]2018-08-03 01:51:00 Test Item Value Reference Range Interpretation Comments Alk Phos (test code = Alk Phos) 86 39-136 [facility]2018-08-03 01:51:00 Test Item Value Reference Range Interpretation Comments Bili Total (test code = Bili Total) 0.6 0.2-1.3 [facility]2018-08-03 01:51:00 Test Item Value Reference Range Interpretation Comments Bili Indirect (test 0.5 See_Comment [Automa kuldip message] The code = Bili Indirect) system which generated this result tra nsmitted reference range : <=1.0. The reference r nilam was not used to int erpret this result as normal/abnormal . [facility]2018-08-03 01:51:00 Test Item Value Reference Range Interpretation Comments Globulin (test code = Globulin) 4.7 2.7-4.2 [place] 583988-08-03 01:51:00 Test Item Value Reference Range Interpretation Comments A/G Ratio (test code = A/G Ratio) 0.8 1 0.7-1.6 [facility]2018-08-03 01:51:00 Test Item Value Reference Range Interpretation Comments eGFR (test code = eGFR) 124 [facility]2018-08-03 01:51:00 Test Item Value Reference Range Interpretation Comments Creatinine Lvl (test code = Creatinine 0.70 0.50-1.40 Lvl) [place] 583988-08-03 01:51:00 Test Item Value Reference Range Interpretation Comments Sodium Lvl (test code = Sodium Lvl) 134 135-145 [facility]2018-08-03 01:51:00 Test Item Value Reference Range Interpretation Comments Potassium Lvl (test code = Potassium 3.6 3.5-5.1 Lvl) [facility]2018-08-03 01:51:00 Test Item Value Reference Range Interpretation Comments CO2 (test code = CO2) 25 24-32 [facility]2018-08-03 01:51:00 Test Item Value Reference Range Interpretation Comments Chloride Lvl (test code = Chloride Lvl) 103 95-109 [facility]2018-08-03 01:51:00 Test Item Value Reference Range Interpretation Comments Calcium Lvl (test code = Calcium Lvl) 10.3 8.5-10.5 [facility]2018-08-03 01:51:00 Test Item Value Reference Range Interpretation Comments Glucose Lvl (test code = Glucose Lvl) 93 70-99 [facility]2018-08-03 01:51:00 Test Item Value Reference Range Interpretation Comments BUN (test code = BUN) 8 7-22 [facility]2018-08-03 01:51:00 Test Item Value Reference Range Interpretation Comments AGAP (test code = AGAP) 9.6 10.0-20.0 [facility] CenterJgyvguoXWMBCVNLMK0612-00-62 01:51:00 Test Item Value Reference Range Interpretation Comments Basophils # (test code 0.0 See_Comment [Aut omated message] The = Basophils #) system which generated this result tra nsmitted reference range : <=0.2. The reference r nilam was not used to int erpret this result as normal/abnormal . [facility] CenterDpreaelOPSCXLLZDY9616-96-54 01:51:00 Test Item Value Reference Range Interpretation Comments Lymphocytes # (test code = Lymphocytes 2.4 1.0-5.5 #) [facility] CenterFcabidmQVUHSGRXYS7377-16-23 01:51:00 Test Item Value Reference Range Interpretation Comments Monocytes # (test code 0.6 See_Comment [Aut omated message] The = Monocytes #) system which generated this result tra nsmitted reference range : <=0.8. The reference r nilam was not used to int erpret this result as normal/abnormal . [facility] CenterOwwusohBVYPHRRPPB1819-69-36 01:51:00 Test Item Value Reference Range Interpretation Comments Eosinophils # (test code 0.1 See_Comment [A utomated message] The = Eosinophils #) system whic h generated this result tra nsmitted reference range : <=0.5. The reference r nilam was not used to int erpret this result as normal/abnormal . [facility] CenterBkvanteRSVPFEBOIE3645-68-81 01:51:00 Test Item Value Reference Range Interpretation Comments Eosinophils (test code = 2.1 See_Comment [A utomated message] The Eosinophils) system which ge nerated this result tra nsmitted reference range : <=4.0. The reference r nilam was not used to int erpret this result as normal/abnormal . [facility] CenterGzaxufkBOKMSHKIKE8448-32-50 01:51:00 Test Item Value Reference Range Interpretation Comments Basophils (test code = 0.4 See_Comment [Aut omated message] The Basophils) system which ge nerated this result tra nsmitted reference range : <=1.0. The reference r nilam was not used to int erpret this result as normal/abnormal . [facility] CenterBkmdfbaIYOLREOYYT4097-45-59 01:51:00 Test Item Value Reference Range Interpretation Comments Neutrophils # (test code = Neutrophils 3.7 1.5-8.1 #) [facility] CenterZdgehauUPKCYVXVZH1018-84-20 01:51:00 Test Item Value Reference Range Interpretation Comments Lymphocytes (test code = Lymphocytes) 35.4 20.0-40.0 [facility] CenterOrkmhbzCEOVYCFMTC4673-10-37 01:51:00 Test Item Value Reference Range Interpretation Comments Monocytes (test code = Monocytes) 8.2 2.0-12.0 [facility] CenterVdzhoxfNNFJWRDTTD7937-76-55 01:51:00 Test Item Value Reference Range Interpretation Comments Segs (test code = Segs) 53.9 45.0-75.0 [facility] CenterHtsrmtgTHIPTWPFNT2664-23-83 01:51:00 Test Item Value Reference Range Interpretation Comments MPV (test code = MPV) 7.8 7.4-10.4 [facility] CenterGjzfelnAVGAGDFFPU8131-07-54 01:51:00 Test Item Value Reference Range Interpretation Comments Platelet (test code = Platelet) 251 133-450 [facility] HospitalRnffrslCVGMYYQBXN7319-60-27 01:51:00 Test Item Value Reference Range Interpretation Comments RDW (test code = RDW) 13.4 11.5-14.5 [facility] HospitalBehdyqvRIZYWFWKRL3984-59-53 01:51:00 Test Item Value Reference Range Interpretation Comments MCHC (test code = MCHC) 34.1 32.0-36.0 [facility] HospitalZhnpodpEOZRQGQELA3744-40-26 01:51:00 Test Item Value Reference Range Interpretation Comments MCH (test code = MCH) 30.7 pg 27.0-31.0 [facility] HospitalThltiodAGUTUQQKTH8541-47-36 01:51:00 Test Item Value Reference Range Interpretation Comments MCV (test code = MCV) 90.0 80.0-98.0 [facility] HospitalZtbhdsjENVHIISRML9587-48-27 01:51:00 Test Item Value Reference Range Interpretation Comments Hct (test code = Hct) 40.4 36.0-48.0 [facility] HospitalKbksglaHFNQAUNEMR4191-83-34 01:51:00 Test Item Value Reference Range Interpretation Comments Hgb (test code = Hgb) 13.8 12.0-16.0 [facility] HospitalHwaysogOFYYEPMQWP8234-54-59 01:51:00 Test Item Value Reference Range Interpretation Comments RBC (test code = RBC) 4.49 4.20-5.40 [facility] CenterThqggyrGNZDXLXZGB4496-44-33 01:51:00 Test Item Value Reference Range Interpretation Comments WBC (test code = WBC) 6.9 3.7-10.4 [facility] CenterEpoque2018-[facility]-03 01:51:00 Test Item Value Reference Range Interpretation Comments Total CK (test code = Total CK) 121 12-191 [facility] HospitalCrucialtec NIUJAPG9938-56-87 01:51:00 Test Item Value Reference Range Interpretation Comments Troponin-I (test code no gt See_Comment [Auto mated message] The = Troponin-I) system which g enerated this result transmit kuldip reference range : <=0.40. The reference r nilam was not used to interpr et this result as abiodun l/abnormal. [facility] CenterAmagi Media Labs [id number] 01:51:00 Test Item Value Reference Range Interpretation Comments CK MB (test code = CK MB) no gt 0.5-3.6 [facility] HospitalCARDIAC MJSBOJX0962-90-98 01:51:00 Test Item Value Reference Range Interpretation Comments CK MB Index (test no gt See_Comment [Automate d message] The code = CK MB Index) system w [facility] generated this result transmit kuldip reference range : <=2.5. The reference range was not used to interpr et this result as abiodun l/abnormal. [facility] CenterEasyProperty [id number] 01:51:00 Test Item Value Reference Range Interpretation Comments Lipase Lvl (test code = Lipase Lvl) 217 73-393 [facility] CenterEasyProperty [id number] 01:51:00 Test Item Value Reference Range Interpretation Comments Total Protein (test code = Total 8.4 6.4-8.4 Protein) [facility] CenterBreeze TechnologyCANNON MEMORIAL HOSPITALPHTSE9501-25-09 01:51:00 Test Item Value Reference Range Interpretation Comments Albumin Lvl (test code = Albumin Lvl) 3.7 3.5-5.0 [facility] CenterEasyProperty [id number] 01:51:00 Test Item Value Reference Range Interpretation Comments ALT (test code = ALT) 24 See_Comment [Auto mated message] The system which ge nerated this result transmit kuldip reference range : <=65. The reference range was not used to interpr et this result as abiodun l/abnormal. [facility] CenterEasyProperty [id number] 01:51:00 Test Item Value Reference Range Interpretation Comments AST (test code = AST) 18 See_Comment [Auto mated message] The system which ge nerated this result transmit kuldip reference range : <=37. The reference range was not used to interpr et this result as abiodun l/abnormal. [facility] [id number] 01:51:00 Test Item Value Reference Range Interpretation Comments Bili Direct (test code 0.1 See_Comment [Aut omated message] The = Bili Direct) system which generated this result tra nsmitted reference range : <=0.3. The reference r nilam was not used to int erpret this result as abiodun l/abnormal. [facility] [id number] 01:51:00 Test Item Value Reference Range Interpretation Comments Alk Phos (test code = Alk Phos) 86 39-136 [facility] [id number] 01:51:00 Test Item Value Reference Range Interpretation Comments Bili Total (test code = Bili Total) 0.6 0.2-1.3 [facility]2018-08-03 01:51:00 Test Item Value Reference Range Interpretation Comments Bili Indirect (test 0.5 See_Comment [Automa kuldip message] The code = Bili Indirect) system which generated this result tra nsmitted reference range : <=1.0. The reference r nilam was not used to int erpret this result as normal/abnormal . [facility]2018-08-03 01:51:00 Test Item Value Reference Range Interpretation Comments Globulin (test code = Globulin) 4.7 2.7-4.2 [facility]2018-08-03 01:51:00 Test Item Value Reference Range Interpretation Comments A/G Ratio (test code = A/G Ratio) 0.8 1 0.7-1.6 [facility]2018-08-03 01:51:00 Test Item Value Reference Range Interpretation Comments eGFR (test code = eGFR) 124 [facility]2018-08-03 01:51:00 Test Item Value Reference Range Interpretation Comments Creatinine Lvl (test code = Creatinine 0.70 0.50-1.40 Lvl) [facility]2018-08-03 01:51:00 Test Item Value Reference Range Interpretation Comments Sodium Lvl (test code = Sodium Lvl) 134 135-145 [facility]2018-08-03 01:51:00 Test Item Value Reference Range Interpretation Comments Potassium Lvl (test code = Potassium 3.6 3.5-5.1 Lvl) [facility]2018-08-03 01:51:00 Test Item Value Reference Range Interpretation Comments CO2 (test code = CO2) 25 24-32 [facility]2018-08-03 01:51:00 Test Item Value Reference Range Interpretation Comments Chloride Lvl (test code = Chloride Lvl) 103 95-109 [facility]2018-08-03 01:51:00 Test Item Value Reference Range Interpretation Comments Calcium Lvl (test code = Calcium Lvl) 10.3 8.5-10.5 [facility]2018-08-03 01:51:00 Test Item Value Reference Range Interpretation Comments Glucose Lvl (test code = Glucose Lvl) 93 70-99 [facility]2018-08-03 01:51:00 Test Item Value Reference Range Interpretation Comments BUN (test code = BUN) 8 7-22 [facility]2018-08-03 01:51:00 Test Item Value Reference Range Interpretation Comments AGAP (test code = AGAP) 9.6 10.0-20.0 [facility] [id number] 01:51:00 Test Item Value Reference Range Interpretation Comments Basophils # (test code 0.0 See_Comment [Aut omated message] The = Basophils #) system which generated this result tra nsmitted reference range : <=0.2. The reference r nilam was not used to int erpret this result as normal/abnormal . [facility] Cent[id number] 01:51:00 Test Item Value Reference Range Interpretation Comments Lymphocytes # (test code = Lymphocytes 2.4 1.0-5.5 #) [facility] [id number] 01:51:00 Test Item Value Reference Range Interpretation Comments Monocytes # (test code 0.6 See_Comment [Aut omated message] The = Monocytes #) system which generated this result tra nsmitted reference range : <=0.8. The reference r nilam was not used to int erpret this result as normal/abnormal . [facility] CenterVfkwfrdYPXNWHVKHI1281-36-24 01:51:00 Test Item Value Reference Range Interpretation Comments Eosinophils # (test code 0.1 See_Comment [A utomated message] The = Eosinophils #) system whic h generated this result tra nsmitted reference range : <=0.5. The reference r nilam was not used to int erpret this result as normal/abnormal . [facility] CenterZtocgibVGVVAEMUTX5471-34-85 01:51:00 Test Item Value Reference Range Interpretation Comments Eosinophils (test code = 2.1 See_Comment [A utomated message] The Eosinophils) system which ge nerated this result tra nsmitted reference range : <=4.0. The reference r nilam was not used to int erpret this result as normal/abnormal . [facility] CenterCmhssqiCYFRTFNITO7596-06-32 01:51:00 Test Item Value Reference Range Interpretation Comments Basophils (test code = 0.4 See_Comment [Aut omated message] The Basophils) system which ge nerated this result tra nsmitted reference range : <=1.0. The reference r nilam was not used to int erpret this result as normal/abnormal . [facility] CenterPjypbzbDNHZUWGSUK6159-03-69 01:51:00 Test Item Value Reference Range Interpretation Comments Neutrophils # (test code = Neutrophils 3.7 1.5-8.1 #) [facility] CenterAuzuumsKSRLJHWRFV5240-62-87 01:51:00 Test Item Value Reference Range Interpretation Comments Lymphocytes (test code = Lymphocytes) 35.4 20.0-40.0 [facility] CenterUnfmwxkSABWIQUPLH8944-63-10 01:51:00 Test Item Value Reference Range Interpretation Comments Monocytes (test code = Monocytes) 8.2 2.0-12.0 [facility] [id number] 01:51:00 Test Item Value Reference Range Interpretation Comments Segs (test code = Segs) 53.9 45.0-75.0 [facility] CenterJtdeukyBSYCBTIWTA6689-20-99 01:51:00 Test Item Value Reference Range Interpretation Comments MPV (test code = MPV) 7.8 7.4-10.4 [facility] CenterJwshgczRPTSGAQRGD8117-17-34 01:51:00 Test Item Value Reference Range Interpretation Comments Platelet (test code = Platelet) 251 133-450 [facility] CenterZulggreDYNEKBNDQN4483-61-27 01:51:00 Test Item Value Reference Range Interpretation Comments RDW (test code = RDW) 13.4 11.5-14.5 [facility] CenterNuitfpwQLKAHKQENY9727-03-06 01:51:00 Test Item Value Reference Range Interpretation Comments MCHC (test code = MCHC) 34.1 32.0-36.0 [facility] CenterRbopvqmALKIOXJXKJ0040-41-55 01:51:00 Test Item Value Reference Range Interpretation Comments MCH (test code = MCH) 30.7 pg 27.0-31.0 [facility] CenterXlmktnvTPYONUBKPG0459-63-19 01:51:00 Test Item Value Reference Range Interpretation Comments MCV (test code = MCV) 90.0 80.0-98.0 [facility] CenterNyssmgiUDVDVKGBRI0457-11-14 01:51:00 Test Item Value Reference Range Interpretation Comments Hct (test code = Hct) 40.4 36.0-48.0 [facility] CenterPcrrecdFHKLLKWOAH2629-36-85 01:51:00 Test Item Value Reference Range Interpretation Comments Hgb (test code = Hgb) 13.8 12.0-16.0 [facility] HospitalQaomihwAUXBXJKJTB9037-63-64 01:51:00 Test Item Value Reference Range Interpretation Comments RBC (test code = RBC) 4.49 4.20-5.40 [facility] HospitalRdeyggnAYUXYDJXAE9454-98-54 01:51:00 Test Item Value Reference Range Interpretation Comments WBC (test code = WBC) 6.9 3.7-10.4 [facility] W/AUTO [id number] 00:00:00 Test Item Value Reference Range Interpretation [...] code = 1015) 247 K/UL CBC W/AUTO [id number] 00:00:00 Test Item Value Reference Range Interpretation [...] (test code = 1015) 247 K/UL HEMOGLOBIN [id number] 00:00:00 Test Item Value Reference Range Interpretation Comments HEMOGLOBIN A1c (test code = 61064) 5.3 % HEMOGLOBIN [id number] 00:00:00 Test Item Value Reference Range Interpretation Comments HEMOGLOBIN A1c (test code = 77340) 5.3 % LIPID [id number] 00:00:00 Test Item Value Reference Range Interpretation Comments CHOLESTEROL (test code = 2210) 226 MG/DL TRIGLYCERIDES (test code = 2232) 169 MG/DL HDL CHOLESTEROL (test code = 2220) 60 MG/DL CALC LDL CHOL (test code = 2237) 132 MG/DL RISK RATIO LDL/HDL (test code = 2.20 RATIO 2238) BASIC METABOLIC [id number] 00:00:00 Test Item Value Reference Range Interpretation Comments GLUCOSE (test code = 2217) 89 MG/DL BUN (test code = 2208) 7 MG/DL CREATININE (test code = 2214) 0.70 MG/DL eGFR AMER. (test code 124 ML/MIN/1.73 = 95084) eGFR NON- AMER. (test 107 ML/MIN/1.73 code = 81497) SODIUM (test code = 2231) 140 MEQ/L POTASSIUM (test code = 2228) 4.3 MEQ/L CHLORIDE (test code = 2215) 99 MEQ/L CARBON DIOXIDE (test code = 26 MEQ/L 2206) CALCIUM (test code = 2209) 11.1 MG/DL CBC W/AUTO [id number] 00:00:00 Test Item Value Reference Range Interpretation [...] COUNT (test code = 1015) 247 K/UL [id number] 00:00:00 Test Item Value Reference Range Interpretation Comments TSH, THIRD GENERATION (test code 1.020 UIU/ML = 2821) [id number] 00:00:00 Test Item Value Reference Range Interpretation Comments TSH, THIRD GENERATION (test code 1.020 UIU/ML = 2821) CBC W/AUTO [id number] 00:00:00 Test Item Value Reference Range Interpretation [...] code = 1015) 247 K/UL CBC W/AUTO [id number] 00:00:00 Test Item Value Reference Range Interpretation [...] code = 1015) 247 K/UL CBC W/AUTO [id number] 00:00:00 Test Item Value Reference Range Interpretation [...] (test code = 1015) 247 K/UL HEMOGLOBIN [id number] 00:00:00 Test Item Value Reference Range Interpretation Comments HEMOGLOBIN A1c (test code = 44006) 5.3 % HEMOGLOBIN [id number] 00:00:00 Test Item Value Reference Range Interpretation Comments HEMOGLOBIN A1c (test code = 33510) 5.3 % LIPID [id number] 00:00:00 Test Item Value Reference Range Interpretation Comments CHOLESTEROL (test code = 2210) 226 MG/DL TRIGLYCERIDES (test code = 2232) 169 MG/DL HDL CHOLESTEROL (test code = 2220) 60 MG/DL CALC LDL CHOL (test code = 2237) 132 MG/DL RISK RATIO LDL/HDL (test code = 2.20 RATIO 2238) BASIC METABOLIC [id number] 00:00:00 Test Item Value Reference Range Interpretation Comments GLUCOSE (test code = 2217) 89 MG/DL BUN (test code = 2208) 7 MG/DL CREATININE (test code = 2214) 0.70 MG/DL eGFR AMER. (test code 124 ML/MIN/1.73 = 48264) eGFR NON- AMER. (test 107 ML/MIN/1.73 code = 46639) SODIUM (test code = 2231) 140 MEQ/L POTASSIUM (test code = 2228) 4.3 MEQ/L CHLORIDE (test code = 2215) 99 MEQ/L CARBON DIOXIDE (test code = 26 MEQ/L 2205) CALCIUM (test code = 2209) 11.1 MG/DL [id number] 00:00:00 Test Item Value Reference Range Interpretation Comments TSH, THIRD GENERATION (test code 1.020 UIU/ML = 2821) [id number] 00:00:00 Test Item Value Reference Range Interpretation Comments TSH, THIRD GENERATION (test code 1.020 UIU/ML = 2821) HEMOGLOBIN [id number] 00:00:00 Test Item Value Reference Range Interpretation Comments HEMOGLOBIN A1c (test code = 19931) 5.3 % CBC W/AUTO [id number] 00:00:00 Test Item Value Reference Range Interpretation [...] code = 1015) 247 K/UL CBC W/AUTO [id number] 00:00:00 Test Item Value Reference Range Interpretation [...] (test code = 1015) 247 K/UL HEMOGLOBIN [id number] 00:00:00 Test Item Value Reference Range Interpretation Comments HEMOGLOBIN A1c (test code = 42688) 5.3 % CBC W/AUTO [id number] 00:00:00 Test Item Value Reference Range Interpretation [...] (test code = 1015) 247 K/UL HEMOGLOBIN [id number] 00:00:00 Test Item Value Reference Range Interpretation Comments HEMOGLOBIN A1c (test code = 93735) 5.3 % HEMOGLOBIN [id number] 00:00:00 Test Item Value Reference Range Interpretation Comments HEMOGLOBIN A1c (test code = 46884) 5.3 % HEMOGLOBIN [id number] 00:00:00 Test Item Value Reference Range Interpretation Comments HEMOGLOBIN A1c (test code = 95024) 5.3 % LIPID [id number] 00:00:00 Test Item Value Reference Range Interpretation Comments CHOLESTEROL (test code = 2210) 226 MG/DL TRIGLYCERIDES (test code = 2232) 169 MG/DL HDL CHOLESTEROL (test code = 2220) 60 MG/DL CALC LDL CHOL (test code = 2237) 132 MG/DL RISK RATIO LDL/HDL (test code = 2.20 RATIO 2238) LIPID [id number] 00:00:00 Test Item Value Reference Range Interpretation Comments CHOLESTEROL (test code = 2210) 226 MG/DL TRIGLYCERIDES (test code = 2232) 169 MG/DL HDL CHOLESTEROL (test code = 2220) 60 MG/DL CALC LDL CHOL (test code = 2237) 132 MG/DL RISK RATIO LDL/HDL (test code = 2.20 RATIO 2238) LIPID [id number] 00:00:00 Test Item Value Reference Range Interpretation Comments CHOLESTEROL (test code = 2210) 226 MG/DL TRIGLYCERIDES (test code = 2232) 169 MG/DL HDL CHOLESTEROL (test code = 2220) 60 MG/DL CALC LDL CHOL (test code = 2237) 132 MG/DL RISK RATIO LDL/HDL (test code = 2.20 RATIO 2238) BASIC METABOLIC [id number] 00:00:00 Test Item Value Reference Range Interpretation Comments GLUCOSE (test code = 2217) 89 MG/DL BUN (test code = 2208) 7 MG/DL CREATININE (test code = 2214) 0.70 MG/DL eGFR AMER. (test code 124 ML/MIN/1.73 = 38172) eGFR NON- AMER. (test 107 ML/MIN/1.73 code = 46645) SODIUM (test code = 2231) 140 MEQ/L POTASSIUM (test code = 2228) 4.3 MEQ/L CHLORIDE (test code = 2215) 99 MEQ/L CARBON DIOXIDE (test code = 26 MEQ/L 2206) CALCIUM (test code = 2209) 11.1 MG/DL BASIC METABOLIC [id number] 00:00:00 Test Item Value Reference Range Interpretation Comments GLUCOSE (test code = 2217) 89 MG/DL BUN (test code = 2208) 7 MG/DL CREATININE (test code = 2214) 0.70 MG/DL eGFR AMER. (test code 124 ML/MIN/1.73 = 58351) eGFR NON- AMER. (test 107 ML/MIN/1.73 code = 42955) SODIUM (test code = 2231) 140 MEQ/L POTASSIUM (test code = 2228) 4.3 MEQ/L CHLORIDE (test code = 2215) 99 MEQ/L CARBON DIOXIDE (test code = 26 MEQ/L 2206) CALCIUM (test code = 2209) 11.1 MG/DL [id number] 00:00:00 Test Item Value Reference Range Interpretation Comments TSH, THIRD GENERATION (test code 1.020 UIU/ML = 2821) [id number] 00:00:00 Test Item Value Reference Range Interpretation Comments TSH, THIRD GENERATION (test code 1.020 UIU/ML = 2821) [id number] 00:00:00 Test Item Value Reference Range Interpretation Comments TSH, THIRD GENERATION (test code 1.020 UIU/ML = 2821) BASIC METABOLIC [id number] 00:00:00 Test Item Value Reference Range Interpretation Comments GLUCOSE (test code = 2217) 89 MG/DL BUN (test code = 2208) 7 MG/DL CREATININE (test code = 2214) 0.70 MG/DL eGFR AMER. (test code 124 ML/MIN/1.73 = 55421) eGFR NON- AMER. (test 107 ML/MIN/1.73 code = 12095) SODIUM (test code = 2231) 140 MEQ/L POTASSIUM (test code = 2228) 4.3 MEQ/L CHLORIDE (test code = 2215) 99 MEQ/L CARBON DIOXIDE (test code = 26 MEQ/L 2206) CALCIUM (test code = 2209) 11.1 MG/DL [id number] 00:00:00 Test Item Value Reference Range Interpretation Comments TSH, THIRD GENERATION (test code 1.020 UIU/ML = 2821) [id number] 00:00:00 Test Item Value Reference Range Interpretation Comments TSH, THIRD GENERATION (test code 1.020 UIU/ML = 2821) CBC W/AUTO [id number] 00:00:00 Test Item Value Reference Range Interpretation [...] code = 1015) 247 K/UL CBC W/AUTO [id number] 00:00:00 Test Item Value Reference Range Interpretation [...] code = 1015) 247 K/UL CBC W/AUTO [id number] 00:00:00 Test Item Value Reference Range Interpretation [...] (test code = 1015) 247 K/UL HEMOGLOBIN [id number] 00:00:00 Test Item Value Reference Range Interpretation Comments HEMOGLOBIN A1c (test code = 16808) 5.3 % HEMOGLOBIN [id number] 00:00:00 Test Item Value Reference Range Interpretation Comments HEMOGLOBIN A1c (test code = 18806) 5.3 % HEMOGLOBIN [id number] 00:00:00 Test Item Value Reference Range Interpretation Comments HEMOGLOBIN A1c (test code = 10631) 5.3 % LIPID [id number] 00:00:00 Test Item Value Reference Range Interpretation Comments CHOLESTEROL (test code = 2210) 226 MG/DL TRIGLYCERIDES (test code = 2232) 169 MG/DL HDL CHOLESTEROL (test code = 2220) 60 MG/DL CALC LDL CHOL (test code = 2237) 132 MG/DL RISK RATIO LDL/HDL (test code = 2.20 RATIO 2238) LIPID [id number] 00:00:00 Test Item Value Reference Range Interpretation Comments CHOLESTEROL (test code = 2210) 226 MG/DL TRIGLYCERIDES (test code = 2232) 169 MG/DL HDL CHOLESTEROL (test code = 2220) 60 MG/DL CALC LDL CHOL (test code = 2237) 132 MG/DL RISK RATIO LDL/HDL (test code = 2.20 RATIO 2238) BASIC METABOLIC [id number] 00:00:00 Test Item Value Reference Range Interpretation Comments GLUCOSE (test code = 2217) 89 MG/DL BUN (test code = 2208) 7 MG/DL CREATININE (test code = 2214) 0.70 MG/DL eGFR AMER. (test code 124 ML/MIN/1.73 = 10163) eGFR NON- AMER. (test 107 ML/MIN/1.73 code = 60865) SODIUM (test code = 2231) 140 MEQ/L POTASSIUM (test code = 2228) 4.3 MEQ/L CHLORIDE (test code = 2215) 99 MEQ/L CARBON DIOXIDE (test code = 26 MEQ/L 2206) CALCIUM (test code = 2209) 11.1 MG/DL BASIC METABOLIC [id number] 00:00:00 Test Item Value Reference Range Interpretation Comments GLUCOSE (test code = 2217) 89 MG/DL BUN (test code = 2208) 7 MG/DL CREATININE (test code = 2214) 0.70 MG/DL eGFR AMER. (test code 124 ML/MIN/1.73 = 82305) eGFR NON- AMER. (test 107 ML/MIN/1.73 code = 82627) SODIUM (test code = 2231) 140 MEQ/L POTASSIUM (test code = 2228) 4.3 MEQ/L CHLORIDE (test code = 2215) 99 MEQ/L CARBON DIOXIDE (test code = 26 MEQ/L 2206) CALCIUM (test code = 2209) 11.1 MG/DL [id number] 00:00:00 Test Item Value Reference Range Interpretation Comments TSH, THIRD GENERATION (test code 1.020 UIU/ML = 2821) [id number] 00:00:00 Test Item Value Reference Range Interpretation Comments TSH, THIRD GENERATION (test code 1.020 UIU/ML = 2821) [id number] 00:00:00 Test Item Value Reference Range Interpretation Comments TSH, THIRD GENERATION (test code 1.020 UIU/ML = 2821) CHEM [id number] 15:16:00 Test Item Value Reference Range Interpretation Comments eGFR (test code = eGFR) 101 [facility]2018-07-21 15:16:00 Test Item Value Reference Range Interpretation Comments Bili Total (test code = Bili Total) 0.4 0.2-1.3 [facility]2018-07-21 15:16:00 Test Item Value Reference Range Interpretation Comments Alk Phos (test code = Alk Phos) 83 39-136 [facility]2018-07-21 15:16:00 Test Item Value Reference Range Interpretation Comments AST (test code = AST) 14 See_Comment [Auto mated message] The system which ge nerated this result transmit kuldip reference range : <=37. The reference range was not used to interpr et this result as abiodun l/abnormal. [facility]2018-07-21 15:16:00 Test Item Value Reference Range Interpretation Comments ALT (test code = ALT) 22 See_Comment [Auto mated message] The system which ge nerated this result transmit kuldip reference range : <=65. The reference range was not used to interpr et this result as abiodun l/abnormal. [facility] [id number] 15:16:00 Test Item Value Reference Range Interpretation Comments Glucose Lvl (test code = Glucose Lvl) 125 70-99 [facility]2018-07-21 15:16:00 Test Item Value Reference Range Interpretation Comments A/G Ratio (test code = A/G Ratio) 0.8 1 0.7-1.6 [facility]2018-07-21 15:16:00 Test Item Value Reference Range Interpretation Comments Globulin (test code = Globulin) 4.5 2.7-4.2 [facility]2018-07-21 15:16:00 Test Item Value Reference Range Interpretation Comments B/C Ratio (test code = B/C Ratio) 8 1 6-25 [facility]2018-07-21 15:16:00 Test Item Value Reference Range Interpretation Comments Calcium Lvl (test code = Calcium Lvl) 10.2 8.5-10.5 [facility]2018-07-21 15:16:00 Test Item Value Reference Range Interpretation Comments Total Protein (test code = Total 7.9 6.4-8.4 Protein) [facility]2018-07-21 15:16:00 Test Item Value Reference Range Interpretation Comments Albumin Lvl (test code = Albumin Lvl) 3.4 3.5-5.0 [facility]2018-07-21 15:16:00 Test Item Value Reference Range Interpretation Comments Chloride Lvl (test code = Chloride Lvl) 102 95-109 [facility]2018-07-21 15:16:00 Test Item Value Reference Range Interpretation Comments CO2 (test code = CO2) 30 24-32 [facility]2018-07-21 15:16:00 Test Item Value Reference Range Interpretation Comments AGAP (test code = AGAP) 10.8 10.0-20.0 [facility]2018-07-21 15:16:00 Test Item Value Reference Range Interpretation Comments BUN (test code = BUN) 7 7-22 [facility]2018-07-21 15:16:00 Test Item Value Reference Range Interpretation Comments Sodium Lvl (test code = Sodium Lvl) 139 135-145 [facility]2018-07-21 15:16:00 Test Item Value Reference Range Interpretation Comments Potassium Lvl (test code = Potassium 3.8 3.5-5.1 Lvl) [facility]2018-07-21 15:16:00 Test Item Value Reference Range Interpretation Comments Creatinine Lvl (test code = Creatinine 0.83 0.50-1.40 Lvl) [facility]2018-07-21 15:16:00 Test Item Value Reference Range Interpretation Comments Lipase Lvl (test code = Lipase Lvl) 204 73-393 [id number] 15:16:00 Test Item Value Reference Range Interpretation Comments S Preg (test code = S Negative *NA*(10/13/17 Preg) 10:16 AM) [id number] 15:16:00 Test Item Value Reference Range Interpretation Comments Monocytes (test code = Monocytes) 7.5 2.0-12.0 [facility] [id number] 15:16:00 Test Item Value Reference Range Interpretation Comments Segs (test code = Segs) 64.6 45.0-75.0 [facility] CenterKyvbgruEWQLWDIVHW9869-54-25 15:16:00 Test Item Value Reference Range Interpretation Comments Lymphocytes (test code = Lymphocytes) 26.4 20.0-40.0 [facility] CenterDjengsxIPDXRAIAZI7851-72-00 15:16:00 Test Item Value Reference Range Interpretation Comments Neutrophils # (test code = Neutrophils 4.8 1.5-8.1 #) [facility] [id number] 15:16:00 Test Item Value Reference Range Interpretation Comments Basophils (test code = 0.4 See_Comment [Aut omated message] The Basophils) system which ge nerated this result tra nsmitted reference range : <=1.0. The reference r nilam was not used to int erpret this result as normal/abnormal . [facility] Cent[id number] 15:16:00 Test Item Value Reference Range Interpretation Comments Eosinophils (test code = 1.1 See_Comment [A utomated message] The Eosinophils) system which ge nerated this result tra nsmitted reference range : <=4.0. The reference r nilam was not used to int erpret this result as normal/abnormal . [facility] CenterHpzxuxnXNTEGHVTPX0496-41-83 15:16:00 Test Item Value Reference Range Interpretation Comments Monocytes # (test code 0.6 See_Comment [Aut omated message] The = Monocytes #) system which generated this result tra nsmitted reference range : <=0.8. The reference r nilam was not used to int erpret this result as normal/abnormal . [facility] CenterYoquzxgDKXZFQXEQW8100-19-42 15:16:00 Test Item Value Reference Range Interpretation Comments Lymphocytes # (test code = Lymphocytes 2.0 1.0-5.5 #) [facility] [id number] 15:16:00 Test Item Value Reference Range Interpretation Comments Eosinophils # (test code 0.1 See_Comment [A utomated message] The = Eosinophils #) system whic h generated this result tra nsmitted reference range : <=0.5. The reference r nilam was not used to int erpret this result as normal/abnormal . [facility] CenterMeomsvaMQUDDCAGXI1774-09-45 15:16:00 Test Item Value Reference Range Interpretation Comments RDW (test code = RDW) 13.4 11.5-14.5 [facility] HospitalQuzccsoNBZSLWGYTE9457-62-25 15:16:00 Test Item Value Reference Range Interpretation Comments MCH (test code = MCH) 30.7 pg 27.0-31.0 [facility] HospitalEwhgmnkAZQOLAZXGG0364-08-86 15:16:00 Test Item Value Reference Range Interpretation Comments Platelet (test code = Platelet) 204 133-450 [facility] Hospit[id number] 15:16:00 Test Item Value Reference Range Interpretation Comments MCHC (test code = MCHC) 34.7 32.0-36.0 [id number] 15:16:00 Test Item Value Reference Range Interpretation Comments MCV (test code = MCV) 88.5 80.0-98.0 [facility] HospitalCwwuwcdTADYZTYZMH0378-09-85 15:16:00 Test Item Value Reference Range Interpretation Comments MPV (test code = MPV) 8.2 7.4-10.4 [facility] HospitalDaadrgcLWWQSIDJGZ0877-16-18 15:16:00 Test Item Value Reference Range Interpretation Comments Hct (test code = Hct) 38.7 36.0-48.0 [facility] Hospit[id number] 15:16:00 Test Item Value Reference Range Interpretation Comments Hgb (test code = Hgb) 13.4 12.0-16.0 [facility] HospitalXfxcljyLYZIWBVYSP4131-27-83 15:16:00 Test Item Value Reference Range Interpretation Comments RBC (test code = RBC) 4.37 4.20-5.40 [facility] HospitalIppvupxUKKJTJWFPB1795-62-20 15:16:00 Test Item Value Reference Range Interpretation Comments WBC (test code = WBC) 7.4 3.7-10.4 [facility] AND [id number] 15:16:00 Test Item Value Reference Range Interpretation Comments UA Urobilinogen (test code = UA <=1.0 mg/dL 0.1-1.0 Urobilinogen) [facility] AND [id number] 15:16:00 Test Item Value Reference Range Interpretation Comments UA Mucus (test code = UA Mucus) Few /LPF [facility] AND [id number] 15:16:00 Test Item Value Reference Range Interpretation Comments UA CaOx Judy (test code = UA CaOx Many /HPF Judy) [facility] AND [id number] 15:16:00 Test Item Value Reference Range Interpretation Comments UA RBC (test code = 3 See_Comment [Automa kuldip message] The UA RBC) system which ge nerated this result transmit kuldip reference range : <=2. The reference range was not used to interpr et this result as abiodun l/abnormal. [facility] AND [id number] 15:16:00 Test Item Value Reference Range Interpretation Comments UA WBC (test code = 2 See_Comment [Automa kuldip message] The UA WBC) system which ge nerated this result transmit kuldip reference range : <=5. The reference range was not used to interpr et this result as abiodun l/abnormal. [facility] AND [id number] 15:16:00 Test Item Value Reference Range Interpretation Comments UA Leuk Est (test Negative (10/13/17 10:16 code = UA Leuk Est) AM) [facility] AND [id number] 15:16:00 Test Item Value Reference Range Interpretation Comments UA Sq Epi (test code = UA Sq Epi) Few /LPF [facility] AND [id number] 15:16:00 Test Item Value Reference Range Interpretation Comments UA Bacteria (test code = UA Occasional /HPF Bacteria) [facility] AND [id number] 15:16:00 Test Item Value Reference Range Interpretation Comments UA Blood (test code = Negative (10/13/17 10:16 UA Blood) AM) [facility] AND [id number] 15:16:00 Test Item Value Reference Range Interpretation Comments UA Nitrite (test code Negative (10/13/17 10:16 = UA Nitrite) AM) [facility] AND [id number] 15:16:00 Test Item Value Reference Range Interpretation Comments UA pH (test code = UA pH) 6.0 1 5.0-8.0 [facility] AND [id number] 15:16:00 Test Item Value Reference Range Interpretation Comments UA Spec Grav (test code = UA Spec 1.008 1 Grav) [facility] AND [id number] 15:16:00 Test Item Value Reference Range Interpretation Comments UA Ketones (test code = UA Negative mg/dL Ketones) [facility] AND [id number] 15:16:00 Test Item Value Reference Range Interpretation Comments UA Bili (test code = Negative *NA*(10/13/17 UA Bili) 10:16 AM) [facility] AND [id number] 15:16:00 Test Item Value Reference Range Interpretation Comments UA Glucose (test code = UA Negative mg/dL Glucose) [facility] AND [id number] 15:16:00 Test Item Value Reference Range Interpretation Comments UA Color (test code = Yellow *NA*(10/13/17 UA Color) 10:16 AM) [facility] AND [id number] 15:16:00 Test Item Value Reference Range Interpretation Comments UA Turbidity (test code Slight *ABN*(10/13/17 = UA Turbidity) 10:16 AM) [facility] AND [id number] 15:16:00 Test Item Value Reference Range Interpretation Comments UA Protein (test code = UA Negative mg/dL Protein) [facility]2018-07-21 15:16:00 Test Item Value Reference Range Interpretation Comments eGFR (test code = eGFR) 101 [facility]2018-07-21 15:16:00 Test Item Value Reference Range Interpretation Comments Bili Total (test code = Bili Total) 0.4 0.2-1.3 [facility]2018-07-21 15:16:00 Test Item Value Reference Range Interpretation Comments Alk Phos (test code = Alk Phos) 83 39-136 [facility]2018-07-21 15:16:00 Test Item Value Reference Range Interpretation Comments AST (test code = AST) 14 See_Comment [Auto mated message] The system which ge nerated this result transmit kuldip reference range : <=37. The reference range was not used to interpr et this result as abiodun l/abnormal. [facility]2018-07-21 15:16:00 Test Item Value Reference Range Interpretation Comments ALT (test code = ALT) 22 See_Comment [Auto mated message] The system which ge nerated this result transmit kuldip reference range : <=65. The reference range was not used to interpr et this result as abiodun l/abnormal. [facility]2018-07-21 15:16:00 Test Item Value Reference Range Interpretation Comments Glucose Lvl (test code = Glucose Lvl) 125 70-99 [facility]2018-07-21 15:16:00 Test Item Value Reference Range Interpretation Comments A/G Ratio (test code = A/G Ratio) 0.8 1 0.7-1.6 [facility]2018-07-21 15:16:00 Test Item Value Reference Range Interpretation Comments Globulin (test code = Globulin) 4.5 2.7-4.2 [facility]2018-07-21 15:16:00 Test Item Value Reference Range Interpretation Comments B/C Ratio (test code = B/C Ratio) 8 1 6-25 [facility]2018-07-21 15:16:00 Test Item Value Reference Range Interpretation Comments Calcium Lvl (test code = Calcium Lvl) 10.2 8.5-10.5 [facility]2018-07-21 15:16:00 Test Item Value Reference Range Interpretation Comments Total Protein (test code = Total 7.9 6.4-8.4 Protein) [facility]2018-07-21 15:16:00 Test Item Value Reference Range Interpretation Comments Albumin Lvl (test code = Albumin Lvl) 3.4 3.5-5.0 [facility]2018-07-21 15:16:00 Test Item Value Reference Range Interpretation Comments Chloride Lvl (test code = Chloride Lvl) 102 95-109 [facility]2018-07-21 15:16:00 Test Item Value Reference Range Interpretation Comments CO2 (test code = CO2) 30 24-32 [facility]2018-07-21 15:16:00 Test Item Value Reference Range Interpretation Comments AGAP (test code = AGAP) 10.8 10.0-20.0 [facility]2018-07-21 15:16:00 Test Item Value Reference Range Interpretation Comments BUN (test code = BUN) 7 7-22 [facility]2018-07-21 15:16:00 Test Item Value Reference Range Interpretation Comments Sodium Lvl (test code = Sodium Lvl) 139 135-145 [facility]2018-07-21 15:16:00 Test Item Value Reference Range Interpretation Comments Potassium Lvl (test code = Potassium 3.8 3.5-5.1 Lvl) [facility]2018-07-21 15:16:00 Test Item Value Reference Range Interpretation Comments Creatinine Lvl (test code = Creatinine 0.83 0.50-1.40 Lvl) [facility]2018-07-21 15:16:00 Test Item Value Reference Range Interpretation Comments Lipase Lvl (test code = Lipase Lvl) 204 73-393 [place] [id number] 15:16:00 Test Item Value Reference Range Interpretation Comments S Preg (test code = S Negative *NA*(10/13/17 Preg) 10:16 AM) [facility]fmpqdyDVKUHHCPJJ7813-78-60 15:16:00 Test Item Value Reference Range Interpretation Comments Monocytes (test code = Monocytes) 7.5 2.0-12.0 [facility] CenterWekptxmKXNZCJFRLH4260-96-15 15:16:00 Test Item Value Reference Range Interpretation Comments Segs (test code = Segs) 64.6 45.0-75.0 [facility] CenterGzeqtsvPIKLEHAGZW8013-58-26 15:16:00 Test Item Value Reference Range Interpretation Comments Lymphocytes (test code = Lymphocytes) 26.4 20.0-40.0 [facility] CenterHwudwsoKBFMPPMNTA3284-06-55 15:16:00 Test Item Value Reference Range Interpretation Comments Neutrophils # (test code = Neutrophils 4.8 1.5-8.1 #) [facility] CenterNowyktgRHCOCNYGEM4208-08-18 15:16:00 Test Item Value Reference Range Interpretation Comments Basophils (test code = 0.4 See_Comment [Aut omated message] The Basophils) system which ge nerated this result tra nsmitted reference range : <=1.0. The reference r nilam was not used to int erpret this result as normal/abnormal . [facility] CenterZudrfczVSQDLOFKCM8526-06-63 15:16:00 Test Item Value Reference Range Interpretation Comments Eosinophils (test code = 1.1 See_Comment [A utomated message] The Eosinophils) system which ge nerated this result tra nsmitted reference range : <=4.0. The reference r nilam was not used to int erpret this result as normal/abnormal . [facility] CenterYjsuwnjOPPSYMCYQV2899-44-16 15:16:00 Test Item Value Reference Range Interpretation Comments Monocytes # (test code 0.6 See_Comment [Aut omated message] The = Monocytes #) system which generated this result tra nsmitted reference range : <=0.8. The reference r nilam was not used to int erpret this result as normal/abnormal . [facility] CenterUpaldwcCRDMYZXMPD6970-90-82 15:16:00 Test Item Value Reference Range Interpretation Comments Lymphocytes # (test code = Lymphocytes 2.0 1.0-5.5 #) [facility] CenterEwdjdsoBDGJWQGMVC8201-80-95 15:16:00 Test Item Value Reference Range Interpretation Comments Eosinophils # (test code 0.1 See_Comment [A utomated message] The = Eosinophils #) system whic h generated this result tra nsmitted reference range : <=0.5. The reference r nilam was not used to int erpret this result as normal/abnormal . [facility] CenterXzbffniJLBOKGGSVF9651-33-61 15:16:00 Test Item Value Reference Range Interpretation Comments RDW (test code = RDW) 13.4 11.5-14.5 [facility] CenterJnglybgIEUOJYIIRH8960-38-88 15:16:00 Test Item Value Reference Range Interpretation Comments MCH (test code = MCH) 30.7 pg 27.0-31.0 [facility] CenterSteigwcXZEPQNXGPS4344-59-11 15:16:00 Test Item Value Reference Range Interpretation Comments Platelet (test code = Platelet) 204 133-450 [facility] CenterTuvcedtUVIRDKZVCA0809-47-93 15:16:00 Test Item Value Reference Range Interpretation Comments MCHC (test code = MCHC) 34.7 32.0-36.0 [facility] C[id number] 15:16:00 Test Item Value Reference Range Interpretation Comments MCV (test code = MCV) 88.5 80.0-98.0 [facility] CenterJfukdvpQBIYESGAFA7777-90-10 15:16:00 Test Item Value Reference Range Interpretation Comments MPV (test code = MPV) 8.2 7.4-10.4 [facility] CenterDztfxbxRWFBABXXXD2174-15-08 15:16:00 Test Item Value Reference Range Interpretation Comments Hct (test code = Hct) 38.7 36.0-48.0 [facility] CenterEimazreSMBDIOPXLV0830-57-75 15:16:00 Test Item Value Reference Range Interpretation Comments Hgb (test code = Hgb) 13.4 12.0-16.0 [facility] C[id number] 15:16:00 Test Item Value Reference Range Interpretation Comments RBC (test code = RBC) 4.37 4.20-5.40 [facility] CenterZrcmcitXGCWMHRFMO4824-89-34 15:16:00 Test Item Value Reference Range Interpretation Comments WBC (test code = WBC) 7.4 3.7-10.4 [facility] AND [id number] 15:16:00 Test Item Value Reference Range Interpretation Comments UA Urobilinogen (test code = UA <=1.0 mg/dL 0.1-1.0 Urobilinogen) [facility] AND [id number] 15:16:00 Test Item Value Reference Range Interpretation Comments UA Mucus (test code = UA Mucus) Few /LPF [facility] AND [id number] 15:16:00 Test Item Value Reference Range Interpretation Comments UA CaOx Judy (test code = UA CaOx Many /HPF Judy) [facility] AND [id number] 15:16:00 Test Item Value Reference Range Interpretation Comments UA RBC (test code = 3 See_Comment [Automa kuldip message] The UA RBC) system which ge nerated this result transmit kuldip reference range : <=2. The reference range was not used to interpr et this result as abiodun l/abnormal. [facility] AND [id number] 15:16:00 Test Item Value Reference Range Interpretation Comments UA WBC (test code = 2 See_Comment [Automa kudlip message] The UA WBC) system which ge nerated this result transmit kuldip reference range : <=5. The reference range was not used to interpr et this result as abiodun l/abnormal. [facility] AND [id number] 15:16:00 Test Item Value Reference Range Interpretation Comments UA Leuk Est (test Negative (10/13/17 10:16 code = UA Leuk Est) AM) [facility] AND [id number] 15:16:00 Test Item Value Reference Range Interpretation Comments UA Sq Epi (test code = UA Sq Epi) Few /LPF [facility] AND [id number] 15:16:00 Test Item Value Reference Range Interpretation Comments UA Bacteria (test code = UA Occasional /HPF Bacteria) [facility] AND [id number] 15:16:00 Test Item Value Reference Range Interpretation Comments UA Blood (test code = Negative (10/13/17 10:16 UA Blood) AM) [facility] AND [id number] 15:16:00 Test Item Value Reference Range Interpretation Comments UA Nitrite (test code Negative (10/13/17 10:16 = UA Nitrite) AM) [facility] AND [id number] 15:16:00 Test Item Value Reference Range Interpretation Comments UA pH (test code = UA pH) 6.0 1 5.0-8.0 [facility] AND [id number] 15:16:00 Test Item Value Reference Range Interpretation Comments UA Spec Grav (test code = UA Spec 1.008 1 Grav) [facility] AND [id number] 15:16:00 Test Item Value Reference Range Interpretation Comments UA Ketones (test code = UA Negative mg/dL Ketones) [facility] AND [id number] 15:16:00 Test Item Value Reference Range Interpretation Comments UA Bili (test code = Negative *NA*(10/13/17 UA Bili) 10:16 AM) [facility] AND [id number] 15:16:00 Test Item Value Reference Range Interpretation Comments UA Glucose (test code = UA Negative mg/dL Glucose) [facility] AND [id number] 15:16:00 Test Item Value Reference Range Interpretation Comments UA Color (test code = Yellow *NA*(10/13/17 UA Color) 10:16 AM) [facility] AND [id number] 15:16:00 Test Item Value Reference Range Interpretation Comments UA Turbidity (test code Slight *ABN*(10/13/17 = UA Turbidity) 10:16 AM) [facility] AND [id number] 15:16:00 Test Item Value Reference Range Interpretation Comments UA Protein (test code = UA Negative mg/dL Protein) [facility]2018-07-21 15:16:00 Test Item Value Reference Range Interpretation Comments eGFR (test code = eGFR) 101 [facility]2018-07-21 15:16:00 Test Item Value Reference Range Interpretation Comments Bili Total (test code = Bili Total) 0.4 0.2-1.3 [facility]2018-07-21 15:16:00 Test Item Value Reference Range Interpretation Comments Alk Phos (test code = Alk Phos) 83 39-136 [facility]2018-07-21 15:16:00 Test Item Value Reference Range Interpretation Comments AST (test code = AST) 14 See_Comment [Auto mated message] The system which ge nerated this result transmit kuldip reference range : <=37. The reference range was not used to interpr et this result as abiodun l/abnormal. [facility]2018-07-21 15:16:00 Test Item Value Reference Range Interpretation Comments ALT (test code = ALT) 22 See_Comment [Auto mated message] The system which ge nerated this result transmit kuldip reference range : <=65. The reference range was not used to interpr et this result as abiodun l/abnormal. [facility]2018-07-21 15:16:00 Test Item Value Reference Range Interpretation Comments Glucose Lvl (test code = Glucose Lvl) 125 70-99 [facility]2018-07-21 15:16:00 Test Item Value Reference Range Interpretation Comments A/G Ratio (test code = A/G Ratio) 0.8 1 0.7-1.6 [facility]2018-07-21 15:16:00 Test Item Value Reference Range Interpretation Comments Globulin (test code = Globulin) 4.5 2.7-4.2 [place] [id number] 15:16:00 Test Item Value Reference Range Interpretation Comments B/C Ratio (test code = B/C Ratio) 8 1 6-25 [facility]2018-07-21 15:16:00 Test Item Value Reference Range Interpretation Comments Calcium Lvl (test code = Calcium Lvl) 10.2 8.5-10.5 [facility]2018-07-21 15:16:00 Test Item Value Reference Range Interpretation Comments Total Protein (test code = Total 7.9 6.4-8.4 Protein) [facility]2018-07-21 15:16:00 Test Item Value Reference Range Interpretation Comments Albumin Lvl (test code = Albumin Lvl) 3.4 3.5-5.0 [facility]2018-07-21 15:16:00 Test Item Value Reference Range Interpretation Comments Chloride Lvl (test code = Chloride Lvl) 102 95-109 [facility]2018-07-21 15:16:00 Test Item Value Reference Range Interpretation Comments CO2 (test code = CO2) 30 24-32 [facility]2018-07-21 15:16:00 Test Item Value Reference Range Interpretation Comments AGAP (test code = AGAP) 10.8 10.0-20.0 [facility]2018-07-21 15:16:00 Test Item Value Reference Range Interpretation Comments BUN (test code = BUN) 7 7-22 [facility]2018-07-21 15:16:00 Test Item Value Reference Range Interpretation Comments Sodium Lvl (test code = Sodium Lvl) 139 135-145 [facility]2018-07-21 15:16:00 Test Item Value Reference Range Interpretation Comments Potassium Lvl (test code = Potassium 3.8 3.5-5.1 Lvl) [facility]2018-07-21 15:16:00 Test Item Value Reference Range Interpretation Comments Creatinine Lvl (test code = Creatinine 0.83 0.50-1.40 Lvl) [facility]2018-07-21 15:16:00 Test Item Value Reference Range Interpretation Comments Lipase Lvl (test code = Lipase Lvl) 204 73-393 [place] [id number] 15:16:00 Test Item Value Reference Range Interpretation Comments S Preg (test code = S Negative *NA*(10/13/17 Preg) 10:16 AM) [facility]XuxsxxpOOVTLSWVTK9319-86-12 15:16:00 Test Item Value Reference Range Interpretation Comments Monocytes (test code = Monocytes) 7.5 2.0-12.0 [facility] CenterOdzosjlNSAELFXJSA7883-53-51 15:16:00 Test Item Value Reference Range Interpretation Comments Segs (test code = Segs) 64.6 45.0-75.0 [facility] CenterQhzmetkDSXUVXMODN1024-20-22 15:16:00 Test Item Value Reference Range Interpretation Comments Lymphocytes (test code = Lymphocytes) 26.4 20.0-40.0 [facility] CenterHrzujkdYNMMNPPGJS3716-15-95 15:16:00 Test Item Value Reference Range Interpretation Comments Neutrophils # (test code = Neutrophils 4.8 1.5-8.1 #) [facility] CenterKkuommfZSSYAOJWZE7686-22-39 15:16:00 Test Item Value Reference Range Interpretation Comments Basophils (test code = 0.4 See_Comment [Aut omated message] The Basophils) system which ge nerated this result tra nsmitted reference range : <=1.0. The reference r nilam was not used to int erpret this result as normal/abnormal . [facility] CenterMvotjcbFQINYZYOYZ8077-98-10 15:16:00 Test Item Value Reference Range Interpretation Comments Eosinophils (test code = 1.1 See_Comment [A utomated message] The Eosinophils) system which ge nerated this result tra nsmitted reference range : <=4.0. The reference r nilam was not used to int erpret this result as normal/abnormal . [facility] CenterJqxvfeiWLMNCVGGGL2287-24-48 15:16:00 Test Item Value Reference Range Interpretation Comments Monocytes # (test code 0.6 See_Comment [Aut omated message] The = Monocytes #) system which generated this result tra nsmitted reference range : <=0.8. The reference r nilam was not used to int erpret this result as normal/abnormal . [facility] CenterMrndeviVPCIRBUGQK8494-19-92 15:16:00 Test Item Value Reference Range Interpretation Comments Lymphocytes # (test code = Lymphocytes 2.0 1.0-5.5 #) [facility] CenterGcedbekFIVGQDHGRL1740-65-75 15:16:00 Test Item Value Reference Range Interpretation Comments Eosinophils # (test code 0.1 See_Comment [A utomated message] The = Eosinophils #) system whic h generated this result tra nsmitted reference range : <=0.5. The reference r nilam was not used to int erpret this result as normal/abnormal . [facility] CenterLwbrrvvLVQENXVKRG4564-24-44 15:16:00 Test Item Value Reference Range Interpretation Comments RDW (test code = RDW) 13.4 11.5-14.5 [facility] CenterEkzzikrSCKWDBSWRH7008-45-24 15:16:00 Test Item Value Reference Range Interpretation Comments MCH (test code = MCH) 30.7 pg 27.0-31.0 [facility] CenterJinjfacZHPQLOXMDV3571-35-05 15:16:00 Test Item Value Reference Range Interpretation Comments Platelet (test code = Platelet) 204 133-450 [facility] CenterZomwjncUHKSTDYYMH8237-82-31 15:16:00 Test Item Value Reference Range Interpretation Comments MCHC (test code = MCHC) 34.7 32.0-36.0 [facility] CenterXubfugaCITGPWUHTK1957-22-12 15:16:00 Test Item Value Reference Range Interpretation Comments MCV (test code = MCV) 88.5 80.0-98.0 [facility] CenterGvlbzxyOWYYMGGOJV5857-06-40 15:16:00 Test Item Value Reference Range Interpretation Comments MPV (test code = MPV) 8.2 7.4-10.4 [facility] CenterPfgxmjyYCNPCWKOLV8031-80-78 15:16:00 Test Item Value Reference Range Interpretation Comments Hct (test code = Hct) 38.7 36.0-48.0 [facility] CenterSvqyzrcBTBCSLFSYF9922-18-52 15:16:00 Test Item Value Reference Range Interpretation Comments Hgb (test code = Hgb) 13.4 12.0-16.0 [facility] CenterRpogzysANTCMVVFMP3317-33-75 15:16:00 Test Item Value Reference Range Interpretation Comments RBC (test code = RBC) 4.37 4.20-5.40 [facility] CenterAuhtqzyJZSKWHURRL8412-30-64 15:16:00 Test Item Value Reference Range Interpretation Comments WBC (test code = WBC) 7.4 3.7-10.4 [facility] AND [id number] 15:16:00 Test Item Value Reference Range Interpretation Comments UA Urobilinogen (test code = UA <=1.0 mg/dL 0.1-1.0 Urobilinogen) [facility] AND [id number] 15:16:00 Test Item Value Reference Range Interpretation Comments UA Mucus (test code = UA Mucus) Few /LPF [facility] AND [id number] 15:16:00 Test Item Value Reference Range Interpretation Comments UA CaOx Judy (test code = UA CaOx Many /HPF Judy) [facility] AND [id number] 15:16:00 Test Item Value Reference Range Interpretation Comments UA RBC (test code = 3 See_Comment [Automa kuldip message] The UA RBC) system which ge nerated this result transmit kuldip reference range : <=2. The reference range was not used to interpr et this result as abiodun l/abnormal. [facility] AND [id number] 15:16:00 Test Item Value Reference Range Interpretation Comments UA WBC (test code = 2 See_Comment [Automa kuldip message] The UA WBC) system which ge nerated this result transmit kuldip reference range : <=5. The reference range was not used to interpr et this result as abiodun l/abnormal. [facility] AND [id number] 15:16:00 Test Item Value Reference Range Interpretation Comments UA Leuk Est (test Negative (10/13/17 10:16 code = UA Leuk Est) AM) [facility] AND [id number] 15:16:00 Test Item Value Reference Range Interpretation Comments UA Sq Epi (test code = UA Sq Epi) Few /LPF [facility] AND [id number] 15:16:00 Test Item Value Reference Range Interpretation Comments UA Bacteria (test code = UA Occasional /HPF Bacteria) [facility] AND [id number] 15:16:00 Test Item Value Reference Range Interpretation Comments UA Blood (test code = Negative (10/13/17 10:16 UA Blood) AM) [facility] AND [id number] 15:16:00 Test Item Value Reference Range Interpretation Comments UA Nitrite (test code Negative (10/13/17 10:16 = UA Nitrite) AM) [facility] AND [id number] 15:16:00 Test Item Value Reference Range Interpretation Comments UA pH (test code = UA pH) 6.0 1 5.0-8.0 [facility] AND [id number] 15:16:00 Test Item Value Reference Range Interpretation Comments UA Spec Grav (test code = UA Spec 1.008 1 Grav) [facility] AND [id number] 15:16:00 Test Item Value Reference Range Interpretation Comments UA Ketones (test code = UA Negative mg/dL Ketones) [facility] AND [id number] 15:16:00 Test Item Value Reference Range Interpretation Comments UA Bili (test code = Negative *NA*(10/13/17 UA Bili) 10:16 AM) [facility] AND [id number] 15:16:00 Test Item Value Reference Range Interpretation Comments UA Glucose (test code = UA Negative mg/dL Glucose) [facility] AND [id number] 15:16:00 Test Item Value Reference Range Interpretation Comments UA Color (test code = Yellow *NA*(10/13/17 UA Color) 10:16 AM) [facility] AND [id number] 15:16:00 Test Item Value Reference Range Interpretation Comments UA Turbidity (test code Slight *ABN*(10/13/17 = UA Turbidity) 10:16 AM) [facility] AND [id number] 15:16:00 Test Item Value Reference Range Interpretation Comments UA Protein (test code = UA Negative mg/dL Protein) [facility]2018-07-21 15:16:00 Test Item Value Reference Range Interpretation Comments eGFR (test code = eGFR) 101 [facility]2018-07-21 15:16:00 Test Item Value Reference Range Interpretation Comments Bili Total (test code = Bili Total) 0.4 0.2-1.3 [facility]2018-07-21 15:16:00 Test Item Value Reference Range Interpretation Comments Alk Phos (test code = Alk Phos) 83 39-136 [facility]2018-07-21 15:16:00 Test Item Value Reference Range Interpretation Comments AST (test code = AST) 14 See_Comment [Auto mated message] The system which ge nerated this result transmit kuldip reference range : <=37. The reference range was not used to interpr et this result as abiodun l/abnormal. [facility]2018-07-21 15:16:00 Test Item Value Reference Range Interpretation Comments ALT (test code = ALT) 22 See_Comment [Auto mated message] The system which ge nerated this result transmit kuldip reference range : <=65. The reference range was not used to interpr et this result as abiodun l/abnormal. [facility]2018-07-21 15:16:00 Test Item Value Reference Range Interpretation Comments Glucose Lvl (test code = Glucose Lvl) 125 70-99 [facility]2018-07-21 15:16:00 Test Item Value Reference Range Interpretation Comments A/G Ratio (test code = A/G Ratio) 0.8 1 0.7-1.6 [facility]2018-07-21 15:16:00 Test Item Value Reference Range Interpretation Comments Globulin (test code = Globulin) 4.5 2.7-4.2 [facility]2018-07-21 15:16:00 Test Item Value Reference Range Interpretation Comments B/C Ratio (test code = B/C Ratio) 8 1 6-25 [facility]2018-07-21 15:16:00 Test Item Value Reference Range Interpretation Comments Calcium Lvl (test code = Calcium Lvl) 10.2 8.5-10.5 [facility]2018-07-21 15:16:00 Test Item Value Reference Range Interpretation Comments Total Protein (test code = Total 7.9 6.4-8.4 Protein) [facility]2018-07-21 15:16:00 Test Item Value Reference Range Interpretation Comments Albumin Lvl (test code = Albumin Lvl) 3.4 3.5-5.0 [facility]2018-07-21 15:16:00 Test Item Value Reference Range Interpretation Comments eGFR (test code = eGFR) 101 [facility]2018-07-21 15:16:00 Test Item Value Reference Range Interpretation Comments Bili Total (test code = Bili Total) 0.4 0.2-1.3 [facility]2018-07-21 15:16:00 Test Item Value Reference Range Interpretation Comments Alk Phos (test code = Alk Phos) 83 39-136 [facility]2018-07-21 15:16:00 Test Item Value Reference Range Interpretation Comments AST (test code = AST) 14 See_Comment [Auto mated message] The system which ge nerated this result transmit kuldip reference range : <=37. The reference range was not used to interpr et this result as abiodun l/abnormal. [facility]2018-07-21 15:16:00 Test Item Value Reference Range Interpretation Comments ALT (test code = ALT) 22 See_Comment [Auto mated message] The system which ge nerated this result transmit kuldip reference range : <=65. The reference range was not used to interpr et this result as abiodun l/abnormal. [facility]2018-07-21 15:16:00 Test Item Value Reference Range Interpretation Comments Glucose Lvl (test code = Glucose Lvl) 125 70-99 [facility]2018-07-21 15:16:00 Test Item Value Reference Range Interpretation Comments Chloride Lvl (test code = Chloride Lvl) 102 95-109 [facility]2018-07-21 15:16:00 Test Item Value Reference Range Interpretation Comments A/G Ratio (test code = A/G Ratio) 0.8 1 0.7-1.6 [facility]2018-07-21 15:16:00 Test Item Value Reference Range Interpretation Comments Globulin (test code = Globulin) 4.5 2.7-4.2 [facility]2018-07-21 15:16:00 Test Item Value Reference Range Interpretation Comments B/C Ratio (test code = B/C Ratio) 8 1 6-25 [facility]2018-07-21 15:16:00 Test Item Value Reference Range Interpretation Comments Calcium Lvl (test code = Calcium Lvl) 10.2 8.5-10.5 [facility]2018-07-21 15:16:00 Test Item Value Reference Range Interpretation Comments Total Protein (test code = Total 7.9 6.4-8.4 Protein) [facility]2018-07-21 15:16:00 Test Item Value Reference Range Interpretation Comments Albumin Lvl (test code = Albumin Lvl) 3.4 3.5-5.0 [facility]2018-07-21 15:16:00 Test Item Value Reference Range Interpretation Comments Chloride Lvl (test code = Chloride Lvl) 102 95-109 [facility]2018-07-21 15:16:00 Test Item Value Reference Range Interpretation Comments CO2 (test code = CO2) 30 24-32 [facility]2018-07-21 15:16:00 Test Item Value Reference Range Interpretation Comments AGAP (test code = AGAP) 10.8 10.0-20.0 [facility]2018-07-21 15:16:00 Test Item Value Reference Range Interpretation Comments BUN (test code = BUN) 7 7-22 [facility]2018-07-21 15:16:00 Test Item Value Reference Range Interpretation Comments CO2 (test code = CO2) 30 24-32 [facility]2018-07-21 15:16:00 Test Item Value Reference Range Interpretation Comments Sodium Lvl (test code = Sodium Lvl) 139 135-145 [facility]2018-07-21 15:16:00 Test Item Value Reference Range Interpretation Comments Potassium Lvl (test code = Potassium 3.8 3.5-5.1 Lvl) [facility]2018-07-21 15:16:00 Test Item Value Reference Range Interpretation Comments Creatinine Lvl (test code = Creatinine 0.83 0.50-1.40 Lvl) [facility]2018-07-21 15:16:00 Test Item Value Reference Range Interpretation Comments Lipase Lvl (test code = Lipase Lvl) 204 73-393 [place] [id number] 15:16:00 Test Item Value Reference Range Interpretation Comments S Preg (test code = S Negative *NA*(10/13/17 Preg) 10:16 AM) [id number] 15:16:00 Test Item Value Reference Range Interpretation Comments Monocytes (test code = Monocytes) 7.5 2.0-12.0 [facility] [id number] 15:16:00 Test Item Value Reference Range Interpretation Comments Segs (test code = Segs) 64.6 45.0-75.0 [facility] CenterSnqoxwqJUJGBEDNRF1529-10-99 15:16:00 Test Item Value Reference Range Interpretation Comments Lymphocytes (test code = Lymphocytes) 26.4 20.0-40.0 [facility] CenterSehnjqcQMGGBUFTND3983-87-75 15:16:00 Test Item Value Reference Range Interpretation Comments Neutrophils # (test code = Neutrophils 4.8 1.5-8.1 #) [facility] CenterPtyybgdZYDASLIGDN2046-66-56 15:16:00 Test Item Value Reference Range Interpretation Comments Basophils (test code = 0.4 See_Comment [Aut omated message] The Basophils) system which ge nerated this result tra nsmitted reference range : <=1.0. The reference r nilam was not used to int erpret this result as normal/abnormal . [facility]2018-07-21 15:16:00 Test Item Value Reference Range Interpretation Comments AGAP (test code = AGAP) 10.8 10.0-20.0 [facility] CenterCydfanmXWYRDFEIBL0768-13-59 15:16:00 Test Item Value Reference Range Interpretation Comments Eosinophils (test code = 1.1 See_Comment [A utomated message] The Eosinophils) system which ge nerated this result tra nsmitted reference range : <=4.0. The reference r nilam was not used to int erpret this result as normal/abnormal . [facility] CenterYtlfkcfCDELZMZPBQ2571-37-66 15:16:00 Test Item Value Reference Range Interpretation Comments Monocytes # (test code 0.6 See_Comment [Aut omated message] The = Monocytes #) system which generated this result tra nsmitted reference range : <=0.8. The reference r nilam was not used to int erpret this result as normal/abnormal . [facility] CenterQiqlzivBEUWRDLRUC1156-26-25 15:16:00 Test Item Value Reference Range Interpretation Comments Lymphocytes # (test code = Lymphocytes 2.0 1.0-5.5 #) [facility] CenterGnsycxmTQLJIUZPIO2298-89-85 15:16:00 Test Item Value Reference Range Interpretation Comments Eosinophils # (test code 0.1 See_Comment [A utomated message] The = Eosinophils #) system whic h generated this result tra nsmitted reference range : <=0.5. The reference r nilam was not used to int erpret this result as normal/abnormal . [facility] CenterEeafmfbMDSJAOQHVJ6798-40-09 15:16:00 Test Item Value Reference Range Interpretation Comments RDW (test code = RDW) 13.4 11.5-14.5 [facility] CenterGwkioubFWOJPTTUWA6599-09-11 15:16:00 Test Item Value Reference Range Interpretation Comments MCH (test code = MCH) 30.7 pg 27.0-31.0 [facility] CenterKliymmiIKXUTEFKAI7789-41-51 15:16:00 Test Item Value Reference Range Interpretation Comments Platelet (test code = Platelet) 204 133-450 [facility] CenterBgkakznRAOBDIVDKV5175-16-78 15:16:00 Test Item Value Reference Range Interpretation Comments MCHC (test code = MCHC) 34.7 32.0-36.0 [facility] CenterTlweuebDPIMDTKHKH8993-76-26 15:16:00 Test Item Value Reference Range Interpretation Comments MCV (test code = MCV) 88.5 80.0-98.0 [facility] CenterKgwkgshYSBUVXRYJH0561-47-96 15:16:00 Test Item Value Reference Range Interpretation Comments MPV (test code = MPV) 8.2 7.4-10.4 [facility] [id number] 15:16:00 Test Item Value Reference Range Interpretation Comments BUN (test code = BUN) 7 7-22 [facility] CenterHjtpjypJWNUXUUYUD1752-41-59 15:16:00 Test Item Value Reference Range Interpretation Comments Hct (test code = Hct) 38.7 36.0-48.0 [facility] CenterUjteqnoKFTAEZMNDX7706-48-55 15:16:00 Test Item Value Reference Range Interpretation Comments Hgb (test code = Hgb) 13.4 12.0-16.0 [facility] CenterNczwzlgEHNCIIAQAD3393-34-93 15:16:00 Test Item Value Reference Range Interpretation Comments RBC (test code = RBC) 4.37 4.20-5.40 [facility] CenterWzwsgumDTEDLQTTLZ2136-88-21 15:16:00 Test Item Value Reference Range Interpretation Comments WBC (test code = WBC) 7.4 3.7-10.4 [facility] AND [id number] 15:16:00 Test Item Value Reference Range Interpretation Comments UA Urobilinogen (test code = UA <=1.0 mg/dL 0.1-1.0 Urobilinogen) [facility] AND [id number] 15:16:00 Test Item Value Reference Range Interpretation Comments UA Mucus (test code = UA Mucus) Few /LPF [facility] AND [id number] 15:16:00 Test Item Value Reference Range Interpretation Comments UA CaOx Judy (test code = UA CaOx Many /HPF Judy) [facility] AND [id number] 15:16:00 Test Item Value Reference Range Interpretation Comments UA RBC (test code = 3 See_Comment [Automa kuldip message] The UA RBC) system which ge nerated this result transmit kuldip reference range : <=2. The reference range was not used to interpr et this result as abiodun l/abnormal. [facility] AND [id number] 15:16:00 Test Item Value Reference Range Interpretation Comments UA WBC (test code = 2 See_Comment [Automa kuldip message] The UA WBC) system which ge nerated this result transmit kludip reference range : <=5. The reference range was not used to interpr et this result as abiodun l/abnormal. [facility] AND [id number] 15:16:00 Test Item Value Reference Range Interpretation Comments UA Leuk Est (test Negative (10/13/17 10:16 code = UA Leuk Est) AM) [facility] [id number] 15:16:00 Test Item Value Reference Range Interpretation Comments Sodium Lvl (test code = Sodium Lvl) 139 135-145 [facility] AND [id number] 15:16:00 Test Item Value Reference Range Interpretation Comments UA Sq Epi (test code = UA Sq Epi) Few /LPF [facility] AND [id number] 15:16:00 Test Item Value Reference Range Interpretation Comments UA Bacteria (test code = UA Occasional /HPF Bacteria) [facility] AND [id number] 15:16:00 Test Item Value Reference Range Interpretation Comments UA Blood (test code = Negative (10/13/17 10:16 UA Blood) AM) [facility] AND [id number] 15:16:00 Test Item Value Reference Range Interpretation Comments UA Nitrite (test code Negative (10/13/17 10:16 = UA Nitrite) AM) [facility] [id number] 15:16:00 Test Item Value Reference Range Interpretation Comments UA pH (test code = UA pH) 6.0 1 5.0-8.0 [facility] AND [id number] 15:16:00 Test Item Value Reference Range Interpretation Comments UA Spec Grav (test code = UA Spec 1.008 1 Grav) [facility] [id number] 15:16:00 Test Item Value Reference Range Interpretation Comments UA Ketones (test code = UA Negative mg/dL Ketones) [facility] [id number] 15:16:00 Test Item Value Reference Range Interpretation Comments UA Bili (test code = Negative *NA*(10/13/17 UA Bili) 10:16 AM) [facility] AND [id number] 15:16:00 Test Item Value Reference Range Interpretation Comments UA Glucose (test code = UA Negative mg/dL Glucose) [facility] AND [id number] 15:16:00 Test Item Value Reference Range Interpretation Comments UA Color (test code = Yellow *NA*(10/13/17 UA Color) 10:16 AM) [facility]2018-07-21 15:16:00 Test Item Value Reference Range Interpretation Comments Potassium Lvl (test code = Potassium 3.8 3.5-5.1 Lvl) [facility] AND [id number] 15:16:00 Test Item Value Reference Range Interpretation Comments UA Turbidity (test code Slight *ABN*(10/13/17 = UA Turbidity) 10:16 AM) [facility] AND [id number] 15:16:00 Test Item Value Reference Range Interpretation Comments UA Protein (test code = UA Negative mg/dL Protein) [facility]2018-07-21 15:16:00 Test Item Value Reference Range Interpretation Comments Creatinine Lvl (test code = Creatinine 0.83 0.50-1.40 Lvl) [facility]2018-07-21 15:16:00 Test Item Value Reference Range Interpretation Comments Lipase Lvl (test code = Lipase Lvl) 204 73-393 [place] [id number] 15:16:00 Test Item Value Reference Range Interpretation Comments S Preg (test code = S Negative *NA*(10/13/17 Preg) 10:16 AM) [facility] CenterByzkqfjQHTPRSAEEJ3449-37-66 15:16:00 Test Item Value Reference Range Interpretation Comments Monocytes (test code = Monocytes) 7.5 2.0-12.0 [facility] CenterIjkcsxkYIKWWVRHSZ9823-73-93 15:16:00 Test Item Value Reference Range Interpretation Comments Segs (test code = Segs) 64.6 45.0-75.0 [facility] CenterBuolemhAVBKYJMYVT8641-32-20 15:16:00 Test Item Value Reference Range Interpretation Comments Lymphocytes (test code = Lymphocytes) 26.4 20.0-40.0 [facility] CenterIglxfciFGAINYOWRU2983-22-85 15:16:00 Test Item Value Reference Range Interpretation Comments Neutrophils # (test code = Neutrophils 4.8 1.5-8.1 #) [facility] CenterSzeqhltNOUOOOXVTC2819-62-70 15:16:00 Test Item Value Reference Range Interpretation Comments Basophils (test code = 0.4 See_Comment [Aut omated message] The Basophils) system which ge nerated this result tra nsmitted reference range : <=1.0. The reference r nilam was not used to int erpret this result as normal/abnormal . [facility] CenterJjtisedYYGORVRDZX6498-70-91 15:16:00 Test Item Value Reference Range Interpretation Comments Eosinophils (test code = 1.1 See_Comment [A utomated message] The Eosinophils) system which ge nerated this result tra nsmitted reference range : <=4.0. The reference r nilam was not used to int erpret this result as normal/abnormal . [facility] CenterKbyxuwkMQYTJCIWYN3649-21-51 15:16:00 Test Item Value Reference Range Interpretation Comments Monocytes # (test code 0.6 See_Comment [Aut omated message] The = Monocytes #) system which generated this result tra nsmitted reference range : <=0.8. The reference r nilam was not used to int erpret this result as normal/abnormal . [facility] CenterNdwnwkzSNXBKMVWBG6623-67-83 15:16:00 Test Item Value Reference Range Interpretation Comments Lymphocytes # (test code = Lymphocytes 2.0 1.0-5.5 #) [facility] CenterOfpjvftZPKGBSOHWL3620-32-21 15:16:00 Test Item Value Reference Range Interpretation Comments Eosinophils # (test code 0.1 See_Comment [A utomated message] The = Eosinophils #) system whic h generated this result tra nsmitted reference range : <=0.5. The reference r nilam was not used to int erpret this result as normal/abnormal . [facility] CenterHieeitrIMYPXYHFWB3192-08-38 15:16:00 Test Item Value Reference Range Interpretation Comments RDW (test code = RDW) 13.4 11.5-14.5 [facility] CenterBetkzcdPKAYYXSJMU6500-26-88 15:16:00 Test Item Value Reference Range Interpretation Comments MCH (test code = MCH) 30.7 pg 27.0-31.0 [facility] CenterFrdkzipWCGJNDYXCL0980-04-22 15:16:00 Test Item Value Reference Range Interpretation Comments Platelet (test code = Platelet) 204 133-450 [facility] CenterEdctybxSKAETNODNW2102-20-22 15:16:00 Test Item Value Reference Range Interpretation Comments MCHC (test code = MCHC) 34.7 32.0-36.0 [facility] CenterEloshplZJMCWNRWUQ1242-27-58 15:16:00 Test Item Value Reference Range Interpretation Comments MCV (test code = MCV) 88.5 80.0-98.0 [facility] CenterMqyuzzlGLIJEZYSOI2344-40-71 15:16:00 Test Item Value Reference Range Interpretation Comments MPV (test code = MPV) 8.2 7.4-10.4 [facility] CenterRmugblqUDTGMNDVPE6698-63-34 15:16:00 Test Item Value Reference Range Interpretation Comments Hct (test code = Hct) 38.7 36.0-48.0 [facility] CenterLgitwfyNSKZQNYGUE0447-13-06 15:16:00 Test Item Value Reference Range Interpretation Comments Hgb (test code = Hgb) 13.4 12.0-16.0 [facility] CenterRxgioduYWLEOBKWQT4788-12-25 15:16:00 Test Item Value Reference Range Interpretation Comments RBC (test code = RBC) 4.37 4.20-5.40 [facility] CenterCssghkqJQCCKNXJNK8812-99-20 15:16:00 Test Item Value Reference Range Interpretation Comments WBC (test code = WBC) 7.4 3.7-10.4 [facility]2018-07-21 15:16:00 Test Item Value Reference Range Interpretation Comments UA Urobilinogen (test code = UA <=1.0 mg/dL 0.1-1.0 Urobilinogen) [facility] AND [id number] 15:16:00 Test Item Value Reference Range Interpretation Comments UA Mucus (test code = UA Mucus) Few /LPF [facility]2018-07-21 15:16:00 Test Item Value Reference Range Interpretation Comments UA CaOx Judy (test code = UA CaOx Many /HPF Judy) [facility]2018-07-21 15:16:00 Test Item Value Reference Range Interpretation Comments UA RBC (test code = 3 See_Comment [Automa kuldip message] The UA RBC) system which ge nerated this result transmit kuldip reference range : <=2. The reference range was not used to interpr et this result as abiodun l/abnormal. [facility]2018-07-21 15:16:00 Test Item Value Reference Range Interpretation Comments UA WBC (test code = 2 See_Comment [Automa kuldip message] The UA WBC) system which ge nerated this result transmit kuldip reference range : <=5. The reference range was not used to interpr et this result as abiodun l/abnormal. [facility] AND [id number] 15:16:00 Test Item Value Reference Range Interpretation Comments UA Leuk Est (test Negative (10/13/17 10:16 code = UA Leuk Est) AM) [facility] AND [id number] 15:16:00 Test Item Value Reference Range Interpretation Comments UA Sq Epi (test code = UA Sq Epi) Few /LPF [facility] AND [id number] 15:16:00 Test Item Value Reference Range Interpretation Comments UA Bacteria (test code = UA Occasional /HPF Bacteria) [facility] AND [id number] 15:16:00 Test Item Value Reference Range Interpretation Comments UA Blood (test code = Negative (10/13/17 10:16 UA Blood) AM) [facility] AND [id number] 15:16:00 Test Item Value Reference Range Interpretation Comments UA Nitrite (test code Negative (10/13/17 10:16 = UA Nitrite) AM) [facility] AND [id number] 15:16:00 Test Item Value Reference Range Interpretation Comments UA pH (test code = UA pH) 6.0 1 5.0-8.0 [facility] AND [id number] 15:16:00 Test Item Value Reference Range Interpretation Comments UA Spec Grav (test code = UA Spec 1.008 1 Grav) [facility] AND [id number] 15:16:00 Test Item Value Reference Range Interpretation Comments UA Ketones (test code = UA Negative mg/dL Ketones) [facility] AND [id number] 15:16:00 Test Item Value Reference Range Interpretation Comments UA Bili (test code = Negative *NA*(10/13/17 UA Bili) 10:16 AM) [facility] AND [id number] 15:16:00 Test Item Value Reference Range Interpretation Comments UA Glucose (test code = UA Negative mg/dL Glucose) [facility] AND [id number] 15:16:00 Test Item Value Reference Range Interpretation Comments UA Color (test code = Yellow *NA*(10/13/17 UA Color) 10:16 AM) [facility] AND [id number] 15:16:00 Test Item Value Reference Range Interpretation Comments UA Turbidity (test code Slight *ABN*(10/13/17 = UA Turbidity) 10:16 AM) [facility] AND [id number] 15:16:00 Test Item Value Reference Range Interpretation Comments UA Protein (test code = UA Negative mg/dL Protein) [facility]2018-07-21 15:16:00 Test Item Value Reference Range Interpretation Comments eGFR (test code = eGFR) 101 [facility]2018-07-21 15:16:00 Test Item Value Reference Range Interpretation Comments Bili Total (test code = Bili Total) 0.4 0.2-1.3 [facility]2018-07-21 15:16:00 Test Item Value Reference Range Interpretation Comments Alk Phos (test code = Alk Phos) 83 39-136 [facility]2018-07-21 15:16:00 Test Item Value Reference Range Interpretation Comments AST (test code = AST) 14 See_Comment [Auto mated message] The system which ge nerated this result transmit kuldip reference range : <=37. The reference range was not used to interpr et this result as abiodun l/abnormal. [facility]2018-07-21 15:16:00 Test Item Value Reference Range Interpretation Comments ALT (test code = ALT) 22 See_Comment [Auto mated message] The system which ge nerated this result transmit kuldip reference range : <=65. The reference range was not used to interpr et this result as abiodun l/abnormal. [facility]2018-07-21 15:16:00 Test Item Value Reference Range Interpretation Comments Glucose Lvl (test code = Glucose Lvl) 125 70-99 [facility]2018-07-21 15:16:00 Test Item Value Reference Range Interpretation Comments A/G Ratio (test code = A/G Ratio) 0.8 1 0.7-1.6 [facility]2018-07-21 15:16:00 Test Item Value Reference Range Interpretation Comments Globulin (test code = Globulin) 4.5 2.7-4.2 [facility]2018-07-21 15:16:00 Test Item Value Reference Range Interpretation Comments B/C Ratio (test code = B/C Ratio) 8 1 6-25 [facility]2018-07-21 15:16:00 Test Item Value Reference Range Interpretation Comments Calcium Lvl (test code = Calcium Lvl) 10.2 8.5-10.5 [facility]2018-07-21 15:16:00 Test Item Value Reference Range Interpretation Comments Total Protein (test code = Total 7.9 6.4-8.4 Protein) [facility]2018-07-21 15:16:00 Test Item Value Reference Range Interpretation Comments Albumin Lvl (test code = Albumin Lvl) 3.4 3.5-5.0 [facility]2018-07-21 15:16:00 Test Item Value Reference Range Interpretation Comments Chloride Lvl (test code = Chloride Lvl) 102 95-109 [facility]2018-07-21 15:16:00 Test Item Value Reference Range Interpretation Comments CO2 (test code = CO2) 30 24-32 [facility]2018-07-21 15:16:00 Test Item Value Reference Range Interpretation Comments AGAP (test code = AGAP) 10.8 10.0-20.0 [facility]2018-07-21 15:16:00 Test Item Value Reference Range Interpretation Comments BUN (test code = BUN) 7 7-22 [facility]2018-07-21 15:16:00 Test Item Value Reference Range Interpretation Comments Sodium Lvl (test code = Sodium Lvl) 139 135-145 [facility]2018-07-21 15:16:00 Test Item Value Reference Range Interpretation Comments Potassium Lvl (test code = Potassium 3.8 3.5-5.1 Lvl) [facility]2018-07-21 15:16:00 Test Item Value Reference Range Interpretation Comments Creatinine Lvl (test code = Creatinine 0.83 0.50-1.40 Lvl) [facility]2018-07-21 15:16:00 Test Item Value Reference Range Interpretation Comments Lipase Lvl (test code = Lipase Lvl) 204 73-393 [facility]esvdobAPZVOERWMFVLC2833-76-28 15:16:00 Test Item Value Reference Range Interpretation Comments S Preg (test code = S Negative *NA*(10/13/17 Preg) 10:16 AM) [facility]Hg[facility]coWHRJDNJLUL2486-25-39 15:16:00 Test Item Value Reference Range Interpretation Comments Monocytes (test code = Monocytes) 7.5 2.0-12.0 [facility] CenterCixeimvKHCJXIWXSK4539-36-34 15:16:00 Test Item Value Reference Range Interpretation Comments Segs (test code = Segs) 64.6 45.0-75.0 [facility] CenterVxdkmnfPSAVHHTYAG5020-92-59 15:16:00 Test Item Value Reference Range Interpretation Comments Lymphocytes (test code = Lymphocytes) 26.4 20.0-40.0 [facility] CenterSdntfxvVCVZIQISWQ2705-81-66 15:16:00 Test Item Value Reference Range Interpretation Comments Neutrophils # (test code = Neutrophils 4.8 1.5-8.1 #) [facility] CenterNbchvdtEUATJFKIOR2808-74-87 15:16:00 Test Item Value Reference Range Interpretation Comments Basophils (test code = 0.4 See_Comment [Aut omated message] The Basophils) system which ge nerated this result tra nsmitted reference range : <=1.0. The reference r nilam was not used to int erpret this result as normal/abnormal . [facility] CenterXwwmhfsQRWNIPKRSP5100-60-69 15:16:00 Test Item Value Reference Range Interpretation Comments Eosinophils (test code = 1.1 See_Comment [A utomated message] The Eosinophils) system which ge nerated this result tra nsmitted reference range : <=4.0. The reference r nilam was not used to int erpret this result as normal/abnormal . [facility] CenterZscscnuENXXPYIMVW7532-58-72 15:16:00 Test Item Value Reference Range Interpretation Comments Monocytes # (test code 0.6 See_Comment [Aut omated message] The = Monocytes #) system which generated this result tra nsmitted reference range : <=0.8. The reference r nilam was not used to int erpret this result as normal/abnormal . [facility] CenterRiehnscCXDFEUIJCI8563-31-17 15:16:00 Test Item Value Reference Range Interpretation Comments Lymphocytes # (test code = Lymphocytes 2.0 1.0-5.5 #) [facility] CenterBnrxsfbXLUNGYKAPX6191-11-05 15:16:00 Test Item Value Reference Range Interpretation Comments Eosinophils # (test code 0.1 See_Comment [A utomated message] The = Eosinophils #) system whic h generated this result tra nsmitted reference range : <=0.5. The reference r nilam was not used to int erpret this result as normal/abnormal . [facility] CenterCkyjedwJSFRGXQXSV8678-79-46 15:16:00 Test Item Value Reference Range Interpretation Comments RDW (test code = RDW) 13.4 11.5-14.5 [facility] HospitalGpvuzejWPKCZHXSJJ3961-20-93 15:16:00 Test Item Value Reference Range Interpretation Comments MCH (test code = MCH) 30.7 pg 27.0-31.0 [facility] HospitalTaqfiwuBCLHROXPXQ4364-71-04 15:16:00 Test Item Value Reference Range Interpretation Comments Platelet (test code = Platelet) 204 133-450 [facility] HospitalTeaswngYNBNKMDYPY5851-85-42 15:16:00 Test Item Value Reference Range Interpretation Comments MCHC (test code = MCHC) 34.7 32.0-36.0 [facility] HospitalKsyprdmZSNOHEDFGW8251-45-26 15:16:00 Test Item Value Reference Range Interpretation Comments MCV (test code = MCV) 88.5 80.0-98.0 [facility] HospitalSkpqjmeGJEIULOQTL3910-49-59 15:16:00 Test Item Value Reference Range Interpretation Comments MPV (test code = MPV) 8.2 7.4-10.4 [facility] HospitalWefquhhTAPYKKMILK3591-54-98 15:16:00 Test Item Value Reference Range Interpretation Comments Hct (test code = Hct) 38.7 36.0-48.0 [facility] HospitalAaknlbtTRRYXVMYCD5128-03-98 15:16:00 Test Item Value Reference Range Interpretation Comments Hgb (test code = Hgb) 13.4 12.0-16.0 [facility] HospitalSacunyqGEDGSQYFJB1209-37-66 15:16:00 Test Item Value Reference Range Interpretation Comments RBC (test code = RBC) 4.37 4.20-5.40 [facility] HospitalQlieoljJVUJMNHFHI2846-39-53 15:16:00 Test Item Value Reference Range Interpretation Comments WBC (test code = WBC) 7.4 3.7-10.4 [facility] AND [id number] 15:16:00 Test Item Value Reference Range Interpretation Comments UA Urobilinogen (test code = UA <=1.0 mg/dL 0.1-1.0 Urobilinogen) [facility] AND [id number] 15:16:00 Test Item Value Reference Range Interpretation Comments UA Mucus (test code = UA Mucus) Few /LPF [facility] AND [id number] 15:16:00 Test Item Value Reference Range Interpretation Comments UA CaOx Judy (test code = UA CaOx Many /HPF Judy) [facility] AND [id number] 15:16:00 Test Item Value Reference Range Interpretation Comments UA RBC (test code = 3 See_Comment [Automa kuldip message] The UA RBC) system which ge nerated this result transmit kuldip reference range : <=2. The reference range was not used to interpr et this result as abiodun l/abnormal. [facility] AND [id number] 15:16:00 Test Item Value Reference Range Interpretation Comments UA WBC (test code = 2 See_Comment [Automa kuldip message] The UA WBC) system which ge nerated this result transmit kuldip reference range : <=5. The reference range was not used to interpr et this result as abiodun l/abnormal. [facility] AND [id number] 15:16:00 Test Item Value Reference Range Interpretation Comments UA Leuk Est (test Negative (10/13/17 10:16 code = UA Leuk Est) AM) [facility] AND [id number] 15:16:00 Test Item Value Reference Range Interpretation Comments UA Sq Epi (test code = UA Sq Epi) Few /LPF [facility] AND [id number] 15:16:00 Test Item Value Reference Range Interpretation Comments UA Bacteria (test code = UA Occasional /HPF Bacteria) [facility] AND [id number] 15:16:00 Test Item Value Reference Range Interpretation Comments UA Blood (test code = Negative (10/13/17 10:16 UA Blood) AM) [facility] AND [id number] 15:16:00 Test Item Value Reference Range Interpretation Comments UA Nitrite (test code Negative (10/13/17 10:16 = UA Nitrite) AM) [facility] AND [id number] 15:16:00 Test Item Value Reference Range Interpretation Comments UA pH (test code = UA pH) 6.0 1 5.0-8.0 [facility] AND [id number] 15:16:00 Test Item Value Reference Range Interpretation Comments UA Spec Grav (test code = UA Spec 1.008 1 Grav) [facility] AND [id number] 15:16:00 Test Item Value Reference Range Interpretation Comments UA Ketones (test code = UA Negative mg/dL Ketones) [facility] AND [id number] 15:16:00 Test Item Value Reference Range Interpretation Comments UA Bili (test code = Negative *NA*(10/13/17 UA Bili) 10:16 AM) [facility] AND [id number] 15:16:00 Test Item Value Reference Range Interpretation Comments UA Glucose (test code = UA Negative mg/dL Glucose) [facility] AND [id number] 15:16:00 Test Item Value Reference Range Interpretation Comments UA Color (test code = Yellow *NA*(10/13/17 UA Color) 10:16 AM) [facility] AND [id number] 15:16:00 Test Item Value Reference Range Interpretation Comments UA Turbidity (test code Slight *ABN*(10/13/17 = UA Turbidity) 10:16 AM) [facility] AND [id number] 15:16:00 Test Item Value Reference Range Interpretation Comments UA Protein (test code = UA Negative mg/dL Protein) [facility]2018-07-21 15:16:00 Test Item Value Reference Range Interpretation Comments eGFR (test code = eGFR) 101 [facility]2018-07-21 15:16:00 Test Item Value Reference Range Interpretation Comments Bili Total (test code = Bili Total) 0.4 0.2-1.3 [facility]2018-07-21 15:16:00 Test Item Value Reference Range Interpretation Comments Alk Phos (test code = Alk Phos) 83 39-136 [facility]2018-07-21 15:16:00 Test Item Value Reference Range Interpretation Comments AST (test code = AST) 14 See_Comment [Auto mated message] The system which ge nerated this result transmit kuldip reference range : <=37. The reference range was not used to interpr et this result as abiodun l/abnormal. [facility]2018-07-21 15:16:00 Test Item Value Reference Range Interpretation Comments ALT (test code = ALT) 22 See_Comment [Auto mated message] The system which ge nerated this result transmit kuldip reference range : <=65. The reference range was not used to interpr et this result as abiodun l/abnormal. [facility]2018-07-21 15:16:00 Test Item Value Reference Range Interpretation Comments Glucose Lvl (test code = Glucose Lvl) 125 70-99 [facility]2018-07-21 15:16:00 Test Item Value Reference Range Interpretation Comments A/G Ratio (test code = A/G Ratio) 0.8 1 0.7-1.6 [facility]2018-07-21 15:16:00 Test Item Value Reference Range Interpretation Comments Globulin (test code = Globulin) 4.5 2.7-4.2 [facility]2018-07-21 15:16:00 Test Item Value Reference Range Interpretation Comments B/C Ratio (test code = B/C Ratio) 8 1 6-25 [facility]2018-07-21 15:16:00 Test Item Value Reference Range Interpretation Comments Calcium Lvl (test code = Calcium Lvl) 10.2 8.5-10.5 [facility]2018-07-21 15:16:00 Test Item Value Reference Range Interpretation Comments Total Protein (test code = Total 7.9 6.4-8.4 Protein) [facility]2018-07-21 15:16:00 Test Item Value Reference Range Interpretation Comments Albumin Lvl (test code = Albumin Lvl) 3.4 3.5-5.0 [facility]2018-07-21 15:16:00 Test Item Value Reference Range Interpretation Comments Chloride Lvl (test code = Chloride Lvl) 102 95-109 [facility]2018-07-21 15:16:00 Test Item Value Reference Range Interpretation Comments CO2 (test code = CO2) 30 24-32 [facility]2018-07-21 15:16:00 Test Item Value Reference Range Interpretation Comments AGAP (test code = AGAP) 10.8 10.0-20.0 [facility]2018-07-21 15:16:00 Test Item Value Reference Range Interpretation Comments BUN (test code = BUN) 7 7-22 [facility]2018-07-21 15:16:00 Test Item Value Reference Range Interpretation Comments Sodium Lvl (test code = Sodium Lvl) 139 135-145 [facility]2018-07-21 15:16:00 Test Item Value Reference Range Interpretation Comments Potassium Lvl (test code = Potassium 3.8 3.5-5.1 Lvl) [facility]2018-07-21 15:16:00 Test Item Value Reference Range Interpretation Comments Creatinine Lvl (test code = Creatinine 0.83 0.50-1.40 Lvl) [facility]2018-07-21 15:16:00 Test Item Value Reference Range Interpretation Comments Lipase Lvl (test code = Lipase Lvl) 204 73-393 [place] [id number] 15:16:00 Test Item Value Reference Range Interpretation Comments S Preg (test code = S Negative *NA*(10/13/17 Preg) 10:16 AM) [facility] CenterDbttgvpYURTMOARSY0206-32-14 15:16:00 Test Item Value Reference Range Interpretation Comments Monocytes (test code = Monocytes) 7.5 2.0-12.0 [facility] CenterTanzbahHEALODCXCF6794-03-98 15:16:00 Test Item Value Reference Range Interpretation Comments Segs (test code = Segs) 64.6 45.0-75.0 [facility] CenterOxbktalXNGSHKQGTO9248-28-22 15:16:00 Test Item Value Reference Range Interpretation Comments Lymphocytes (test code = Lymphocytes) 26.4 20.0-40.0 [facility] CenterGekievtKZSXOLJJWA4833-26-41 15:16:00 Test Item Value Reference Range Interpretation Comments Neutrophils # (test code = Neutrophils 4.8 1.5-8.1 #) [facility] CenterNurcekeQHGLLVUFCP1066-24-59 15:16:00 Test Item Value Reference Range Interpretation Comments Basophils (test code = 0.4 See_Comment [Aut omated message] The Basophils) system which ge nerated this result tra nsmitted reference range : <=1.0. The reference r nilam was not used to int erpret this result as normal/abnormal . [facility] CenterLrkmekfDATDKWDTNP8265-66-74 15:16:00 Test Item Value Reference Range Interpretation Comments Eosinophils (test code = 1.1 See_Comment [A utomated message] The Eosinophils) system which ge nerated this result tra nsmitted reference range : <=4.0. The reference r nilam was not used to int erpret this result as normal/abnormal . [facility] CenterTsehzmtNJRDYLMXXI7745-96-76 15:16:00 Test Item Value Reference Range Interpretation Comments Monocytes # (test code 0.6 See_Comment [Aut omated message] The = Monocytes #) system which generated this result tra nsmitted reference range : <=0.8. The reference r nilam was not used to int erpret this result as normal/abnormal . [facility] CenterYkfbsicSSCWDSRWYK4436-32-62 15:16:00 Test Item Value Reference Range Interpretation Comments Lymphocytes # (test code = Lymphocytes 2.0 1.0-5.5 #) [facility] CenterTsyksfvZTRFFIHTHU6207-71-75 15:16:00 Test Item Value Reference Range Interpretation Comments Eosinophils # (test code 0.1 See_Comment [A utomated message] The = Eosinophils #) system whic h generated this result tra nsmitted reference range : <=0.5. The reference r nilam was not used to int erpret this result as normal/abnormal . [facility] CenterVrsnucyOTFHZEOKON7106-98-64 15:16:00 Test Item Value Reference Range Interpretation Comments RDW (test code = RDW) 13.4 11.5-14.5 [facility] CenterPzydppfKFPUOHPZRI9092-09-25 15:16:00 Test Item Value Reference Range Interpretation Comments MCH (test code = MCH) 30.7 pg 27.0-31.0 [facility] CenterRufihxuMBWUKIKNQX8341-73-98 15:16:00 Test Item Value Reference Range Interpretation Comments Platelet (test code = Platelet) 204 133-450 [facility] CenterSenklykSWKXDRAIIP5779-49-55 15:16:00 Test Item Value Reference Range Interpretation Comments MCHC (test code = MCHC) 34.7 32.0-36.0 [facility] CenterJfznxxjBSLGNZWBKU4804-88-53 15:16:00 Test Item Value Reference Range Interpretation Comments MCV (test code = MCV) 88.5 80.0-98.0 [facility] CenterWofybuhMCCAUUIQMH3850-45-22 15:16:00 Test Item Value Reference Range Interpretation Comments MPV (test code = MPV) 8.2 7.4-10.4 [facility] CenterGqejvhxIHAAQMFQSR4039-53-46 15:16:00 Test Item Value Reference Range Interpretation Comments Hct (test code = Hct) 38.7 36.0-48.0 [facility] CenterHmpoighDXFAZEDFFQ9292-89-61 15:16:00 Test Item Value Reference Range Interpretation Comments Hgb (test code = Hgb) 13.4 12.0-16.0 [facility] CenterNvomsyxMHUAAPOUNW3989-35-94 15:16:00 Test Item Value Reference Range Interpretation Comments RBC (test code = RBC) 4.37 4.20-5.40 [facility] CenterAljriceZSIQLLBKNA8333-13-17 15:16:00 Test Item Value Reference Range Interpretation Comments WBC (test code = WBC) 7.4 3.7-10.4 [facility] AND [id number] 15:16:00 Test Item Value Reference Range Interpretation Comments UA Urobilinogen (test code = UA <=1.0 mg/dL 0.1-1.0 Urobilinogen) [facility] AND [id number] 15:16:00 Test Item Value Reference Range Interpretation Comments UA Mucus (test code = UA Mucus) Few /LPF [facility] AND [id number] 15:16:00 Test Item Value Reference Range Interpretation Comments UA CaOx Judy (test code = UA CaOx Many /HPF Judy) [facility] AND [id number] 15:16:00 Test Item Value Reference Range Interpretation Comments UA RBC (test code = 3 See_Comment [Automa kuldip message] The UA RBC) system which ge nerated this result transmit kuldip reference range : <=2. The reference range was not used to interpr et this result as abiodun l/abnormal. [facility] AND [id number] 15:16:00 Test Item Value Reference Range Interpretation Comments UA WBC (test code = 2 See_Comment [Automa kuldip message] The UA WBC) system which ge nerated this result transmit kuldip reference range : <=5. The reference range was not used to interpr et this result as abiodun l/abnormal. [facility] AND [id number] 15:16:00 Test Item Value Reference Range Interpretation Comments UA Leuk Est (test Negative (10/13/17 10:16 code = UA Leuk Est) AM) [facility] AND [id number] 15:16:00 Test Item Value Reference Range Interpretation Comments UA Sq Epi (test code = UA Sq Epi) Few /LPF [facility] AND [id number] 15:16:00 Test Item Value Reference Range Interpretation Comments UA Bacteria (test code = UA Occasional /HPF Bacteria) [facility] AND [id number] 15:16:00 Test Item Value Reference Range Interpretation Comments UA Blood (test code = Negative (10/13/17 10:16 UA Blood) AM) [facility] AND [id number] 15:16:00 Test Item Value Reference Range Interpretation Comments UA Nitrite (test code Negative (10/13/17 10:16 = UA Nitrite) AM) [facility] AND [id number] 15:16:00 Test Item Value Reference Range Interpretation Comments UA pH (test code = UA pH) 6.0 1 5.0-8.0 [facility] AND [id number] 15:16:00 Test Item Value Reference Range Interpretation Comments UA Spec Grav (test code = UA Spec 1.008 1 Grav) [facility] AND [id number] 15:16:00 Test Item Value Reference Range Interpretation Comments UA Ketones (test code = UA Negative mg/dL Ketones) [facility] AND [id number] 15:16:00 Test Item Value Reference Range Interpretation Comments UA Bili (test code = Negative *NA*(10/13/17 UA Bili) 10:16 AM) [facility] AND [id number] 15:16:00 Test Item Value Reference Range Interpretation Comments UA Glucose (test code = UA Negative mg/dL Glucose) [facility] AND [id number] 15:16:00 Test Item Value Reference Range Interpretation Comments UA Color (test code = Yellow *NA*(10/13/17 UA Color) 10:16 AM) [facility] AND [id number] 15:16:00 Test Item Value Reference Range Interpretation Comments UA Turbidity (test code Slight *ABN*(10/13/17 = UA Turbidity) 10:16 AM) [facility] AND [id number] 15:16:00 Test Item Value Reference Range Interpretation Comments UA Protein (test code = UA Negative mg/dL Protein) [place] [id number] 13:00:00 Test Item Value Reference Range Interpretation Comments S Preg (test code = S Negative *NA*(05/01/16 Preg) 7:00 AM) [place] [id number] 13:00:00 Test Item Value Reference Range Interpretation Comments S Preg (test code = S Negative *NA*(05/01/16 Preg) 7:00 AM) [place] [id number] 13:00:00 Test Item Value Reference Range Interpretation Comments S Preg (test code = S Negative *NA*(05/01/16 Preg) 7:00 AM) [place] [id number] 13:00:00 Test Item Value Reference Range Interpretation Comments S Preg (test code = S Negative *NA*(05/01/16 Preg) 7:00 AM) [place] [id number] 13:00:00 Test Item Value Reference Range Interpretation Comments S Preg (test code = S Negative *NA*(05/01/16 Preg) 7:00 AM) [place] [id number] 13:00:00 Test Item Value Reference Range Interpretation Comments S Preg (test code = S Negative *NA*(05/01/16 Preg) 7:00 AM) [place] [id number] 13:00:00 Test Item Value Reference Range Interpretation Comments S Preg (test code = S Negative *NA*(05/01/16 Preg) 7:00 AM) [facility] [id number] 16:31:00 Test Item Value Reference Range Interpretation Comments ABO/Rh (test code = ABO/Rh) B POS [facility] [id number] 16:31:00 Test Item Value Reference Range Interpretation Comments Antibody Scrn (test Negative (04/24/16 code = Antibody Scrn) 10:31 AM) [facility] [id number] 16:31:00 Test Item Value Reference Range Interpretation Comments ABO/Rh (test code = ABO/Rh) B POS [facility] [id number] 16:31:00 Test Item Value Reference Range Interpretation Comments Antibody Scrn (test Negative (04/24/16 code = Antibody Scrn) 10:31 AM) [facility] [id number] 16:31:00 Test Item Value Reference Range Interpretation Comments ABO/Rh (test code = ABO/Rh) B POS [facility] [id number] 16:31:00 Test Item Value Reference Range Interpretation Comments Antibody Scrn (test Negative (04/24/16 code = Antibody Scrn) 10:31 AM) [facility] [id number] 16:31:00 Test Item Value Reference Range Interpretation Comments ABO/Rh (test code = ABO/Rh) B [facility] [id number] 16:31:00 Test Item Value Reference Range Interpretation Comments Antibody Scrn (test Negative (04/24/16 code = Antibody Scrn) 10:31 AM) [facility] [id number] 16:31:00 Test Item Value Reference Range Interpretation Comments ABO/Rh (test code = ABO/Rh) B [facility] [id number] 16:31:00 Test Item Value Reference Range Interpretation Comments Antibody Scrn (test Negative (04/24/16 code = Antibody Scrn) 10:31 AM) [facility] [id number] 16:31:00 Test Item Value Reference Range Interpretation Comments ABO/Rh (test code = ABO/Rh) B [facility] [id number] 16:31:00 Test Item Value Reference Range Interpretation Comments Antibody Scrn (test Negative (04/24/16 code = Antibody Scrn) 10:31 AM) [facility] [id number] 16:31:00 Test Item Value Reference Range Interpretation Comments ABO/Rh (test code = ABO/Rh) B [facility] [id number] 16:31:00 Test Item Value Reference Range Interpretation Comments Antibody Scrn (test Negative (04/24/16 code = Antibody Scrn) 10:31 AM) [facility]UB[facility]CH8867[facility] 16:30:00 Test Item Value Reference Range Interpretation Comments Basophils # (test code 0.0 See_Comment [Aut omated message] The = Basophils #) system which generated this result tra nsmitted reference range : <=0.2. The reference r nilam was not used to int erpret this result as normal/abnormal . [facility] CenterLetbonaLYXVNMWJXN8734-19-14 16:30:00 Test Item Value Reference Range Interpretation Comments Monocytes # (test code 0.4 See_Comment [Aut omated message] The = Monocytes #) system which generated this result tra nsmitted reference range : <=0.8. The reference r nilam was not used to int erpret this result as normal/abnormal . [facility] CenterXznirleYZKVGPFOEW1841-39-81 16:30:00 Test Item Value Reference Range Interpretation Comments Eosinophils # (test code 0.1 See_Comment [A utomated message] The = Eosinophils #) system whic h generated this result tra nsmitted reference range : <=0.5. The reference r nilam was not used to int erpret this result as normal/abnormal . [facility] CenterNzwuakrWWDBSVRXCX5770-87-64 16:30:00 Test Item Value Reference Range Interpretation Comments Segs-Bands # (test code = Segs-Bands #) 3.3 1.5-8.1 [facility] CenterSedaxzjTVVTAVUWJK4788-50-62 16:30:00 Test Item Value Reference Range Interpretation Comments Lymphocytes # (test code = Lymphocytes 1.6 1.0-5.5 #) [facility] CenterCabxvkiPQULAMEVGT4501-25-72 16:30:00 Test Item Value Reference Range Interpretation Comments Segs (test code = Segs) 60.9 45.0-75.0 [facility] CenterAavazfbZINCSMEUJS1375-69-29 16:30:00 Test Item Value Reference Range Interpretation Comments Basophils (test code = 0.5 See_Comment [Aut omated message] The Basophils) system which ge nerated this result tra nsmitted reference range : <=1.0. The reference r nilam was not used to int erpret this result as normal/abnormal . [facility] CenterLmwkknkRKLZOAYYKV7947-70-18 16:30:00 Test Item Value Reference Range Interpretation Comments Eosinophils (test code = 1.8 See_Comment [A utomated message] The Eosinophils) system which ge nerated this result tra nsmitted reference range : <=4.0. The reference r nilam was not used to int erpret this result as normal/abnormal . [facility] CenterTcyhdckUAZXUBUQLC7448-99-50 16:30:00 Test Item Value Reference Range Interpretation Comments Lymphocytes (test code = Lymphocytes) 29.1 20.0-40.0 [facility] CenterYkmulnnWTWVYLPAXE8477-77-07 16:30:00 Test Item Value Reference Range Interpretation Comments Monocytes (test code = Monocytes) 7.7 2.0-12.0 [facility] CenterYqwdoxvJPNSTGNHBC9367-55-10 16:30:00 Test Item Value Reference Range Interpretation Comments MCH (test code = MCH) 28.5 pg 27.0-31.0 [facility] CenterZrfjtfeQDCIXLZWXZ9144-28-89 16:30:00 Test Item Value Reference Range Interpretation Comments MCV (test code = MCV) 87.6 80.0-98.0 [facility] CenterFvyxkekZYGVVBFFHD9762-53-49 16:30:00 Test Item Value Reference Range Interpretation Comments Hct (test code = Hct) 37.5 36.0-48.0 [facility] CenterSxllokbMZENOYHKQY4336-37-77 16:30:00 Test Item Value Reference Range Interpretation Comments MCHC (test code = MCHC) 32.6 32.0-36.0 [facility] CenterSsfzzshHIRFPXHXTJ3058-22-93 16:30:00 Test Item Value Reference Range Interpretation Comments Platelet (test code = Platelet) 263 133-450 [facility] CenterLrxuocuUBDDCIJINB2472-50-64 16:30:00 Test Item Value Reference Range Interpretation Comments RDW (test code = RDW) 15.8 11.5-14.5 [facility] CenterMlzluroMSOKJNQFBR5013-94-43 16:30:00 Test Item Value Reference Range Interpretation Comments MPV (test code = MPV) 8.6 7.4-10.4 [facility] CenterQibvjxcUQUWZBZSEX4374-98-16 16:30:00 Test Item Value Reference Range Interpretation Comments WBC (test code = WBC) 5.4 3.7-10.4 [facility] CenterGmgnvxaSZDQTEOLHS9660-19-27 16:30:00 Test Item Value Reference Range Interpretation Comments Hgb (test code = Hgb) 12.2 12.0-16.0 [facility] CenterZomcwtgTCXGZFIBYH0241-85-68 16:30:00 Test Item Value Reference Range Interpretation Comments RBC (test code = RBC) 4.29 4.20-5.40 [facility] CenterJrqzypoEDYYMQIAYG0051-76-58 16:30:00 Test Item Value Reference Range Interpretation Comments Basophils # (test code 0.0 See_Comment [Aut omated message] The = Basophils #) system which generated this result tra nsmitted reference range : <=0.2. The reference r nilam was not used to int erpret this result as normal/abnormal . [facility] CenterIfjcfdwJUMTVXABIC0648-02-13 16:30:00 Test Item Value Reference Range Interpretation Comments Monocytes # (test code 0.4 See_Comment [Aut omated message] The = Monocytes #) system which generated this result tra nsmitted reference range : <=0.8. The reference r nilam was not used to int erpret this result as normal/abnormal . [facility] CenterCkimlwhJOFNFELKIN7401-24-37 16:30:00 Test Item Value Reference Range Interpretation Comments Eosinophils # (test code 0.1 See_Comment [A utomated message] The = Eosinophils #) system whic h generated this result tra nsmitted reference range : <=0.5. The reference r nilam was not used to int erpret this result as normal/abnormal . [facility] CenterUvtarrkBCMVSJHZFV6805-84-10 16:30:00 Test Item Value Reference Range Interpretation Comments Segs-Bands # (test code = Segs-Bands #) 3.3 1.5-8.1 [facility] CenterGginusbDZRGDSPQEI5964-27-44 16:30:00 Test Item Value Reference Range Interpretation Comments Lymphocytes # (test code = Lymphocytes 1.6 1.0-5.5 #) [facility] CenterVgtejxfZGTQCMGCXN5890-77-64 16:30:00 Test Item Value Reference Range Interpretation Comments Segs (test code = Segs) 60.9 45.0-75.0 [facility] CenterMkixvffDFGTIEQHDD4159-53-06 16:30:00 Test Item Value Reference Range Interpretation Comments Basophils (test code = 0.5 See_Comment [Aut omated message] The Basophils) system which ge nerated this result tra nsmitted reference range : <=1.0. The reference r nilam was not used to int erpret this result as normal/abnormal . [facility] CenterLoqiipsZNQWLXKBEG6790-47-99 16:30:00 Test Item Value Reference Range Interpretation Comments Eosinophils (test code = 1.8 See_Comment [A utomated message] The Eosinophils) system which ge nerated this result tra nsmitted reference range : <=4.0. The reference r nilam was not used to int erpret this result as normal/abnormal . [facility] CenterUlwwobdAKNSZISLDG0494-28-25 16:30:00 Test Item Value Reference Range Interpretation Comments Lymphocytes (test code = Lymphocytes) 29.1 20.0-40.0 [facility] CenterBdbcsmhRWWLLFSPWS3103-07-30 16:30:00 Test Item Value Reference Range Interpretation Comments Monocytes (test code = Monocytes) 7.7 2.0-12.0 [facility] CenterOxubtssGLJHVMBTCE5043-09-22 16:30:00 Test Item Value Reference Range Interpretation Comments MCH (test code = MCH) 28.5 pg 27.0-31.0 [facility] CenterKfkhinjGRBBAAYCOY7342-02-86 16:30:00 Test Item Value Reference Range Interpretation Comments MCV (test code = MCV) 87.6 80.0-98.0 [facility] CenterJuslpzaDFJVCBSAAU7654-85-69 16:30:00 Test Item Value Reference Range Interpretation Comments Hct (test code = Hct) 37.5 36.0-48.0 [facility] CenterFukoqoiSVDUWVCQNC0292-57-32 16:30:00 Test Item Value Reference Range Interpretation Comments MCHC (test code = MCHC) 32.6 32.0-36.0 [facility] CenterGxfiehfULKBMQHZAG7099-57-81 16:30:00 Test Item Value Reference Range Interpretation Comments Platelet (test code = Platelet) 263 133-450 [facility] CenterTwpevscSJZKHNMEFH1706-55-30 16:30:00 Test Item Value Reference Range Interpretation Comments RDW (test code = RDW) 15.8 11.5-14.5 [facility] CenterEhwcdfoLHQHRGZMJA6742-89-19 16:30:00 Test Item Value Reference Range Interpretation Comments MPV (test code = MPV) 8.6 7.4-10.4 [facility] CenterDgxshvzKHDVYFYWCP9594-78-36 16:30:00 Test Item Value Reference Range Interpretation Comments WBC (test code = WBC) 5.4 3.7-10.4 [facility] CenterSbqbgmmMPTKLUGHKC0966-23-77 16:30:00 Test Item Value Reference Range Interpretation Comments Hgb (test code = Hgb) 12.2 12.0-16.0 [facility] CenterSayzezbRKWZNNVTPL1853-43-84 16:30:00 Test Item Value Reference Range Interpretation Comments RBC (test code = RBC) 4.29 4.20-5.40 [facility] CenterRmabczzSKXFEAAQVT6273-52-45 16:30:00 Test Item Value Reference Range Interpretation Comments Basophils # (test code 0.0 See_Comment [Aut omated message] The = Basophils #) system which generated this result tra nsmitted reference range : <=0.2. The reference r nilam was not used to int erpret this result as normal/abnormal . [facility] CenterJddpgupCKNEWTUUCU3402-26-65 16:30:00 Test Item Value Reference Range Interpretation Comments Monocytes # (test code 0.4 See_Comment [Aut omated message] The = Monocytes #) system which generated this result tra nsmitted reference range : <=0.8. The reference r nilam was not used to int erpret this result as normal/abnormal . [facility] CenterMbkbebjXBYZYVRCDL2603-17-73 16:30:00 Test Item Value Reference Range Interpretation Comments Eosinophils # (test code 0.1 See_Comment [A utomated message] The = Eosinophils #) system whic h generated this result tra nsmitted reference range : <=0.5. The reference r nilam was not used to int erpret this result as normal/abnormal . [facility] CenterJhvcwjwEPOMARIARG0142-18-24 16:30:00 Test Item Value Reference Range Interpretation Comments Segs-Bands # (test code = Segs-Bands #) 3.3 1.5-8.1 [facility] CenterTyxgfyqCDPULWZBKK0297-60-54 16:30:00 Test Item Value Reference Range Interpretation Comments Lymphocytes # (test code = Lymphocytes 1.6 1.0-5.5 #) [facility] CenterHydjavrKAQQXYANKG5028-28-23 16:30:00 Test Item Value Reference Range Interpretation Comments Segs (test code = Segs) 60.9 45.0-75.0 [facility] CenterNpgdmqrTKNEIDKGSZ0156-87-20 16:30:00 Test Item Value Reference Range Interpretation Comments Basophils (test code = 0.5 See_Comment [Aut omated message] The Basophils) system which ge nerated this result tra nsmitted reference range : <=1.0. The reference r nilam was not used to int erpret this result as normal/abnormal . [facility] CenterGpzjbtlJTVNTZOFUW7420-89-51 16:30:00 Test Item Value Reference Range Interpretation Comments Eosinophils (test code = 1.8 See_Comment [A utomated message] The Eosinophils) system which ge nerated this result tra nsmitted reference range : <=4.0. The reference r nilam was not used to int erpret this result as normal/abnormal . [facility] CenterOixpztpTGTOCEYVJL8612-21-47 16:30:00 Test Item Value Reference Range Interpretation Comments Lymphocytes (test code = Lymphocytes) 29.1 20.0-40.0 [facility] CenterSwgmzdjDQTINEVBTO7077-05-46 16:30:00 Test Item Value Reference Range Interpretation Comments Monocytes (test code = Monocytes) 7.7 2.0-12.0 [facility] CenterTssqdbqGKNDWXCJBM4529-03-96 16:30:00 Test Item Value Reference Range Interpretation Comments MCH (test code = MCH) 28.5 pg 27.0-31.0 [facility] CenterAytoxnyMLNGVHBLQK2220-95-19 16:30:00 Test Item Value Reference Range Interpretation Comments MCV (test code = MCV) 87.6 80.0-98.0 [facility] CenterWtotmbhCMHCMNWACA9281-47-05 16:30:00 Test Item Value Reference Range Interpretation Comments Hct (test code = Hct) 37.5 36.0-48.0 [facility] CenterJldgkgmTMOEQIZWQV8138-80-55 16:30:00 Test Item Value Reference Range Interpretation Comments MCHC (test code = MCHC) 32.6 32.0-36.0 [facility] CenterSpqoaxlKCXBTWLAZK7894-51-53 16:30:00 Test Item Value Reference Range Interpretation Comments Platelet (test code = Platelet) 263 133-450 [facility] CenterGbdvajpXHONBBPJJH4880-63-86 16:30:00 Test Item Value Reference Range Interpretation Comments RDW (test code = RDW) 15.8 11.5-14.5 [facility] CenterEwjqjrkOWFXHUBYSZ5369-81-54 16:30:00 Test Item Value Reference Range Interpretation Comments MPV (test code = MPV) 8.6 7.4-10.4 [facility] CenterFrwaplwULWJLPVJZG5332-45-14 16:30:00 Test Item Value Reference Range Interpretation Comments WBC (test code = WBC) 5.4 3.7-10.4 [facility] CenterLqtjdjyCGUGKZOWTG8999-35-33 16:30:00 Test Item Value Reference Range Interpretation Comments Hgb (test code = Hgb) 12.2 12.0-16.0 [facility] CenterVyphlyrZYJEUMDXBU0581-29-53 16:30:00 Test Item Value Reference Range Interpretation Comments RBC (test code = RBC) 4.29 4.20-5.40 [facility] CenterTrgahslXIOEXCFXTV9811-55-95 16:30:00 Test Item Value Reference Range Interpretation Comments Basophils # (test code 0.0 See_Comment [Aut omated message] The = Basophils #) system which generated this result tra nsmitted reference range : <=0.2. The reference r nilam was not used to int erpret this result as normal/abnormal . [facility] CenterCrkuehrNJIKUAINOD3257-65-71 16:30:00 Test Item Value Reference Range Interpretation Comments Monocytes # (test code 0.4 See_Comment [Aut omated message] The = Monocytes #) system which generated this result tra nsmitted reference range : <=0.8. The reference r nilam was not used to int erpret this result as normal/abnormal . [facility] CenterLzdewfzZESXORPXVJ3412-20-08 16:30:00 Test Item Value Reference Range Interpretation Comments Eosinophils # (test code 0.1 See_Comment [A utomated message] The = Eosinophils #) system whic h generated this result tra nsmitted reference range : <=0.5. The reference r nilam was not used to int erpret this result as normal/abnormal . [facility] CenterImpybhkJXOSLZMNVR8098-78-84 16:30:00 Test Item Value Reference Range Interpretation Comments Segs-Bands # (test code = Segs-Bands #) 3.3 1.5-8.1 [facility] CenterRvwwpvsYJIXUPVLBK5545-88-28 16:30:00 Test Item Value Reference Range Interpretation Comments Lymphocytes # (test code = Lymphocytes 1.6 1.0-5.5 #) [facility] CenterUrqjesxQRRSKGDKWQ4211-84-11 16:30:00 Test Item Value Reference Range Interpretation Comments Segs (test code = Segs) 60.9 45.0-75.0 [facility] CenterXyhydtfVBGEZWOBAV7322-53-10 16:30:00 Test Item Value Reference Range Interpretation Comments Basophils (test code = 0.5 See_Comment [Aut omated message] The Basophils) system which ge nerated this result tra nsmitted reference range : <=1.0. The reference r nilam was not used to int erpret this result as normal/abnormal . [facility] CenterEqakuckXNACXTYVLI7365-84-49 16:30:00 Test Item Value Reference Range Interpretation Comments Eosinophils (test code = 1.8 See_Comment [A utomated message] The Eosinophils) system which ge nerated this result tra nsmitted reference range : <=4.0. The reference r nilam was not used to int erpret this result as normal/abnormal . [facility] CenterNhsfxpqBKUIVMBRVQ0585-05-35 16:30:00 Test Item Value Reference Range Interpretation Comments Lymphocytes (test code = Lymphocytes) 29.1 20.0-40.0 [facility] CenterAebhuasCTMSTORTUR5246-66-32 16:30:00 Test Item Value Reference Range Interpretation Comments Monocytes (test code = Monocytes) 7.7 2.0-12.0 [facility] CenterWufpwhjMYUZQVFABI5628-69-56 16:30:00 Test Item Value Reference Range Interpretation Comments MCH (test code = MCH) 28.5 pg 27.0-31.0 [facility] CenterOcxsootPGJOKADVBH4650-15-97 16:30:00 Test Item Value Reference Range Interpretation Comments MCV (test code = MCV) 87.6 80.0-98.0 [facility] CenterVhwbcnhOFWLHYKEXY0860-27-60 16:30:00 Test Item Value Reference Range Interpretation Comments Hct (test code = Hct) 37.5 36.0-48.0 [facility] CenterBpceekoCNSBWFYGPC2435-42-86 16:30:00 Test Item Value Reference Range Interpretation Comments MCHC (test code = MCHC) 32.6 32.0-36.0 [facility] CenterXhckzshKEZZYSCUCE8858-01-35 16:30:00 Test Item Value Reference Range Interpretation Comments Platelet (test code = Platelet) 263 133-450 [facility] CenterYlvyncgLJJMXWOERS4298-61-40 16:30:00 Test Item Value Reference Range Interpretation Comments RDW (test code = RDW) 15.8 11.5-14.5 [facility] CenterCglrzbnLQGAGQERYN2552-89-03 16:30:00 Test Item Value Reference Range Interpretation Comments MPV (test code = MPV) 8.6 7.4-10.4 [facility] CenterTtlkaqlWUJSGGZERU0935-82-89 16:30:00 Test Item Value Reference Range Interpretation Comments WBC (test code = WBC) 5.4 3.7-10.4 [facility] CenterZbirgjeUHQCWEITPZ0125-41-87 16:30:00 Test Item Value Reference Range Interpretation Comments Hgb (test code = Hgb) 12.2 12.0-16.0 [facility] CenterJmiorryBKRMMONXNR7889-66-75 16:30:00 Test Item Value Reference Range Interpretation Comments RBC (test code = RBC) 4.29 4.20-5.40 [facility] CenterJdkqvsuNVJAIMWPFO7807-03-39 16:30:00 Test Item Value Reference Range Interpretation Comments Basophils # (test code 0.0 See_Comment [Aut omated message] The = Basophils #) system which generated this result tra nsmitted reference range : <=0.2. The reference r nilam was not used to int erpret this result as normal/abnormal . [facility] CenterLaitzzvLMEGFNKQHV1705-79-31 16:30:00 Test Item Value Reference Range Interpretation Comments Monocytes # (test code 0.4 See_Comment [Aut omated message] The = Monocytes #) system which generated this result tra nsmitted reference range : <=0.8. The reference r nilam was not used to int erpret this result as normal/abnormal . [facility] CenterPpxxmolTMZXCXGAVF9993-75-51 16:30:00 Test Item Value Reference Range Interpretation Comments Eosinophils # (test code 0.1 See_Comment [A utomated message] The = Eosinophils #) system whic h generated this result tra nsmitted reference range : <=0.5. The reference r nilam was not used to int erpret this result as normal/abnormal . [facility] CenterGuxukfaMADUQYSGKW9130-31-66 16:30:00 Test Item Value Reference Range Interpretation Comments Segs-Bands # (test code = Segs-Bands #) 3.3 1.5-8.1 [facility] CenterIqcszqpNBESFYTBFI7653-60-48 16:30:00 Test Item Value Reference Range Interpretation Comments Lymphocytes # (test code = Lymphocytes 1.6 1.0-5.5 #) [facility] CenterKxvtvsaZQMFPHSYLD2969-23-44 16:30:00 Test Item Value Reference Range Interpretation Comments Segs (test code = Segs) 60.9 45.0-75.0 [facility] CenterNqucodzHACHPTOFHR5542-78-84 16:30:00 Test Item Value Reference Range Interpretation Comments Basophils (test code = 0.5 See_Comment [Aut omated message] The Basophils) system which ge nerated this result tra nsmitted reference range : <=1.0. The reference r nilam was not used to int erpret this result as normal/abnormal . [facility] CenterCvctktqDIXGYEBKIE3340-76-56 16:30:00 Test Item Value Reference Range Interpretation Comments Eosinophils (test code = 1.8 See_Comment [A utomated message] The Eosinophils) system which ge nerated this result tra nsmitted reference range : <=4.0. The reference r nilam was not used to int erpret this result as normal/abnormal . [facility] CenterNxwbmwdQFKFYFCOZQ3842-74-59 16:30:00 Test Item Value Reference Range Interpretation Comments Lymphocytes (test code = Lymphocytes) 29.1 20.0-40.0 [facility] CenterJlveyfaATCOMXMPAK0352-27-34 16:30:00 Test Item Value Reference Range Interpretation Comments Monocytes (test code = Monocytes) 7.7 2.0-12.0 [facility] CenterYltnasoBOGDDIKIYU0614-38-06 16:30:00 Test Item Value Reference Range Interpretation Comments MCH (test code = MCH) 28.5 pg 27.0-31.0 [facility] CenterJdagoroIIHSGCDSZK9302-04-94 16:30:00 Test Item Value Reference Range Interpretation Comments MCV (test code = MCV) 87.6 80.0-98.0 [facility] CenterZdzsiydKIZFZXZOEU0698-04-13 16:30:00 Test Item Value Reference Range Interpretation Comments Hct (test code = Hct) 37.5 36.0-48.0 [facility] CenterWecmwiuSHYYIQVKBG8927-80-55 16:30:00 Test Item Value Reference Range Interpretation Comments MCHC (test code = MCHC) 32.6 32.0-36.0 [facility] CenterUjumlpjUZOFKRAMZJ9917-81-60 16:30:00 Test Item Value Reference Range Interpretation Comments Platelet (test code = Platelet) 263 133-450 [facility] CenterFycpwdjMYUTHSTEUL9010-81-87 16:30:00 Test Item Value Reference Range Interpretation Comments RDW (test code = RDW) 15.8 11.5-14.5 [facility] CenterMswdxdbRAYZVPRHCO4971-70-25 16:30:00 Test Item Value Reference Range Interpretation Comments MPV (test code = MPV) 8.6 7.4-10.4 [facility] CenterAhsysqwDKVXSYCCFF0666-77-64 16:30:00 Test Item Value Reference Range Interpretation Comments WBC (test code = WBC) 5.4 3.7-10.4 [facility] CenterVuqnfceHTRYEQDSMX5138-85-36 16:30:00 Test Item Value Reference Range Interpretation Comments Hgb (test code = Hgb) 12.2 12.0-16.0 [facility] CenterVhxtorkTTJNVACLGG2375-85-43 16:30:00 Test Item Value Reference Range Interpretation Comments RBC (test code = RBC) 4.29 4.20-5.40 [facility] CenterEuikedaQOBVAGQCXX1044-60-87 16:30:00 Test Item Value Reference Range Interpretation Comments Basophils # (test code 0.0 See_Comment [Aut omated message] The = Basophils #) system which generated this result tra nsmitted reference range : <=0.2. The reference r nilam was not used to int erpret this result as normal/abnormal . [facility] CenterZsnajhuDVZBOKZRTT7183-91-13 16:30:00 Test Item Value Reference Range Interpretation Comments Monocytes # (test code 0.4 See_Comment [Aut omated message] The = Monocytes #) system which generated this result tra nsmitted reference range : <=0.8. The reference r nilam was not used to int erpret this result as normal/abnormal . [facility] CenterQuhaqjyEOMXQAEMVX4122-39-55 16:30:00 Test Item Value Reference Range Interpretation Comments Eosinophils # (test code 0.1 See_Comment [A utomated message] The = Eosinophils #) system whic h generated this result tra nsmitted reference range : <=0.5. The reference r nilam was not used to int erpret this result as normal/abnormal . [facility]IgwmsxuVVQEVCXAJT1199-26-13 16:30:00 Test Item Value Reference Range Interpretation Comments Segs-Bands # (test code = Segs-Bands #) 3.3 1.5-8.1 [facility] Cent[id number] 16:30:00 Test Item Value Reference Range Interpretation Comments Lymphocytes # (test code = Lymphocytes 1.6 1.0-5.5 #) [facility] CenterPnegyjmSUUHAFALGB5245-28-06 16:30:00 Test Item Value Reference Range Interpretation Comments Segs (test code = Segs) 60.9 45.0-75.0 [facility] CenterLbhloetTZJGFSKOJB6777-16-16 16:30:00 Test Item Value Reference Range Interpretation Comments Basophils (test code = 0.5 See_Comment [Aut omated message] The Basophils) system which ge nerated this result tra nsmitted reference range : <=1.0. The reference r nilam was not used to int erpret this result as normal/abnormal . [facility] CenterBwxptfaRRPXCVLLBF9049-77-62 16:30:00 Test Item Value Reference Range Interpretation Comments Eosinophils (test code = 1.8 See_Comment [A utomated message] The Eosinophils) system which ge nerated this result tra nsmitted reference range : <=4.0. The reference r nilam was not used to int erpret this result as normal/abnormal . [facility] CenterVhuisyiOMHTUBPNHL5028-83-11 16:30:00 Test Item Value Reference Range Interpretation Comments Lymphocytes (test code = Lymphocytes) 29.1 20.0-40.0 [facility] CenterVxdqclkGWYAMTSKWT2851-39-90 16:30:00 Test Item Value Reference Range Interpretation Comments Monocytes (test code = Monocytes) 7.7 2.0-12.0 [facility] CenterGfaolsxDQDLDWFQOZ8223-73-52 16:30:00 Test Item Value Reference Range Interpretation Comments MCH (test code = MCH) 28.5 pg 27.0-31.0 [facility] CenterRzsbeyjQFDWMWNVXN9867-43-33 16:30:00 Test Item Value Reference Range Interpretation Comments MCV (test code = MCV) 87.6 80.0-98.0 [facility] CenterLmdnczpZFMIGMWSFZ8792-39-51 16:30:00 Test Item Value Reference Range Interpretation Comments Hct (test code = Hct) 37.5 36.0-48.0 [facility] CenterYygczmrYVTVLEGRBD8644-20-38 16:30:00 Test Item Value Reference Range Interpretation Comments MCHC (test code = MCHC) 32.6 32.0-36.0 [facility] CenterOufxhqpCWJAGBIKPQ8268-73-78 16:30:00 Test Item Value Reference Range Interpretation Comments Platelet (test code = Platelet) 263 133-450 [facility] CenterKrpikruIKJTPMFPKG6828-82-88 16:30:00 Test Item Value Reference Range Interpretation Comments RDW (test code = RDW) 15.8 11.5-14.5 [facility] CenterEoptvskCUYBWMQQHC4755-69-93 16:30:00 Test Item Value Reference Range Interpretation Comments MPV (test code = MPV) 8.6 7.4-10.4 [facility] CenterItjtsduYABJSDYRTD9900-53-45 16:30:00 Test Item Value Reference Range Interpretation Comments WBC (test code = WBC) 5.4 3.7-10.4 [facility] CenterSvlebshTLUYJIBTDW2983-81-98 16:30:00 Test Item Value Reference Range Interpretation Comments Hgb (test code = Hgb) 12.2 12.0-16.0 [facility] CenterUzqnodyMUKWVIMGAS8440-44-29 16:30:00 Test Item Value Reference Range Interpretation Comments RBC (test code = RBC) 4.29 4.20-5.40 [facility] CenterVclacxiEGTGACBMWV5447-12-56 16:30:00 Test Item Value Reference Range Interpretation Comments Basophils # (test code 0.0 See_Comment [Aut omated message] The = Basophils #) system which generated this result tra nsmitted reference range : <=0.2. The reference r nilam was not used to int erpret this result as normal/abnormal . [facility] CenterRjmzhcqMSKCYQWVKV5148-13-95 16:30:00 Test Item Value Reference Range Interpretation Comments Monocytes # (test code 0.4 See_Comment [Aut omated message] The = Monocytes #) system which generated this result tra nsmitted reference range : <=0.8. The reference r nilam was not used to int erpret this result as normal/abnormal . [facility] CenterEkwiqhfGRDVYAXHPM0732-49-31 16:30:00 Test Item Value Reference Range Interpretation Comments Eosinophils # (test code 0.1 See_Comment [A utomated message] The = Eosinophils #) system whic h generated this result tra nsmitted reference range : <=0.5. The reference r nilam was not used to int erpret this result as normal/abnormal . [facility] CenterOuapjeuRRFYKLPUTP6779-41-54 16:30:00 Test Item Value Reference Range Interpretation Comments Segs-Bands # (test code = Segs-Bands #) 3.3 1.5-8.1 [facility] CenterSroogagIJGGCYUSGS7205-43-50 16:30:00 Test Item Value Reference Range Interpretation Comments Lymphocytes # (test code = Lymphocytes 1.6 1.0-5.5 #) [facility] CenterKybuqaiJEWYBRMCYK3123-06-10 16:30:00 Test Item Value Reference Range Interpretation Comments Segs (test code = Segs) 60.9 45.0-75.0 [facility] CenterRduzppoTEYADNJERG9963-44-58 16:30:00 Test Item Value Reference Range Interpretation Comments Basophils (test code = 0.5 See_Comment [Aut omated message] The Basophils) system which ge nerated this result tra nsmitted reference range : <=1.0. The reference r nilam was not used to int erpret this result as normal/abnormal . [facility] CenterAteakcaPAPOZVMPIV8127-38-59 16:30:00 Test Item Value Reference Range Interpretation Comments Eosinophils (test code = 1.8 See_Comment [A utomated message] The Eosinophils) system which ge nerated this result tra nsmitted reference range : <=4.0. The reference r nilam was not used to int erpret this result as normal/abnormal . [facility] CenterZhykjxwNJUWCDTZND5972-95-95 16:30:00 Test Item Value Reference Range Interpretation Comments Lymphocytes (test code = Lymphocytes) 29.1 20.0-40.0 [facility] CenterVevtzggVBQAXKEUKZ4867-60-22 16:30:00 Test Item Value Reference Range Interpretation Comments Monocytes (test code = Monocytes) 7.7 2.0-12.0 [facility] CenterLfvdpxhTKMUTTACRX1295-33-68 16:30:00 Test Item Value Reference Range Interpretation Comments MCH (test code = MCH) 28.5 pg 27.0-31.0 [facility] CenterCrhrhheWTJPDJVIBC4179-87-37 16:30:00 Test Item Value Reference Range Interpretation Comments MCV (test code = MCV) 87.6 80.0-98.0 [facility] CenterGrkebhaOGGUXRZXYV7447-48-23 16:30:00 Test Item Value Reference Range Interpretation Comments Hct (test code = Hct) 37.5 36.0-48.0 [facility] CenterZyiotncTJNYYXBUEQ8678-48-26 16:30:00 Test Item Value Reference Range Interpretation Comments MCHC (test code = MCHC) 32.6 32.0-36.0 [facility] CenterXfunczzTUDPZESZMT0927-78-05 16:30:00 Test Item Value Reference Range Interpretation Comments Platelet (test code = Platelet) 263 133-450 [facility] CenterEveqldnYHVGISGBLU8543-18-10 16:30:00 Test Item Value Reference Range Interpretation Comments RDW (test code = RDW) 15.8 11.5-14.5 [facility] CenterDkigkjeLTOGDZSJQK6702-13-43 16:30:00 Test Item Value Reference Range Interpretation Comments MPV (test code = MPV) 8.6 7.4-10.4 [facility] CenterFuwnypyODYPIXYQRY8666-06-20 16:30:00 Test Item Value Reference Range Interpretation Comments WBC (test code = WBC) 5.4 3.7-10.4 [facility] CenterXbgjcahXMDMGDYNTB3753-67-70 16:30:00 Test Item Value Reference Range Interpretation Comments Hgb (test code = Hgb) 12.2 12.0-16.0 [facility] CenterVtartonCUYSFYJEYO8797-91-17 16:30:00 Test Item Value Reference Range Interpretation Comments RBC (test code = RBC) 4.29 4.20-5.40 [facility] AND [id number] 23:03:00 Test Item Value Reference Range Interpretation Comments UA Color (test code = Yellow *NA*(03/17/16 UA Color) 5:03 PM) [facility] AND [id number] 23:03:00 Test Item Value Reference Range Interpretation Comments UA Turbidity (test code Cloudy *ABN*(03/17/16 = UA Turbidity) 5:03 PM) [facility] AND [id number] 23:03:00 Test Item Value Reference Range Interpretation Comments UA Ketones (test code Negative *NA*(03/17/16 = UA Ketones) 5:03 PM) [facility] AND [id number] 23:03:00 Test Item Value Reference Range Interpretation Comments UA Glucose (test code Negative (03/17/16 5:03 = UA Glucose) PM) [facility] AND [id number] 23:03:00 Test Item Value Reference Range Interpretation Comments UA Spec Grav (test code = UA Spec 1.025 1 Grav) [facility] AND [id number] 23:03:00 Test Item Value Reference Range Interpretation Comments UA pH (test code = UA pH) 6.0 1 5.0-8.0 [facility] AND [id number] 23:03:00 Test Item Value Reference Range Interpretation Comments UA Protein (test code = UA Protein) 30 mg/dL [facility] AND [id number] 23:03:00 Test Item Value Reference Range Interpretation Comments UA Nitrite (test code Negative (03/17/16 5:03 = [facility] Nitrite) PM) [facility] [id number] 23:03:00 Test Item Value Reference Range Interpretation Comments UA Bili (test code = Negative *NA*(03/17/16 UA Bili) 5:03 PM) [facility] [id number] 23:03:00 Test Item Value Reference Range Interpretation Comments UA Blood (test code = Moderate *ABN*(03/17/16 UA Blood) 5:03 PM) [facility] [id number] 23:03:00 Test Item Value Reference Range Interpretation Comments UA Urobilinogen (test code = UA 4.0 0.1-1.0 Urobilinogen) [facility] [id number] 23:03:00 Test Item Value Reference Range Interpretation Comments UA Leuk Est (test Moderate *ABN*(03/17/16 code = UA Leuk Est) 5:03 PM) [facility] [id number] 23:03:00 Test Item Value Reference Range Interpretation Comments UA Sq Epi (test code = UA Sq Occasional /LPF Epi) [facility] [id number] 23:03:00 Test Item Value Reference Range Interpretation Comments UA RBC (test code = 3-5 /HPF See_Comment [Automa kuldip message] The UA RBC) system which ge nerated this result tra nsmitted reference range : <=2. The reference range was not used to interpr et this result as abiodun l/abnormal. [facility] [id number] 23:03:00 Test Item Value Reference Range Interpretation Comments UA Bacteria (test code = UA Many /HPF Bacteria) [facility] [id number] 23:03:00 Test Item Value Reference Range Interpretation Comments UA WBC (test code = UA WBC) 11-20 /HPF [facility] [id number] 23:03:00 Test Item Value Reference Range Interpretation Comments UA Color (test code = Yellow *NA*(03/17/16 UA Color) 5:03 PM) [facility] [id number] 23:03:00 Test Item Value Reference Range Interpretation Comments UA Turbidity (test code Cloudy *ABN*(03/17/16 = UA Turbidity) 5:03 PM) [facility] [id number] 23:03:00 Test Item Value Reference Range Interpretation Comments UA Ketones (test code Negative *NA*(03/17/16 = UA Ketones) 5:03 PM) [facility] AND [id number] 23:03:00 Test Item Value Reference Range Interpretation Comments UA Glucose (test code Negative (03/17/16 5:03 = UA Glucose) PM) [facility] AND [id number] 23:03:00 Test Item Value Reference Range Interpretation Comments UA Spec Grav (test code = UA Spec 1.025 1 Grav) [facility] AND [id number] 23:03:00 Test Item Value Reference Range Interpretation Comments UA pH (test code = UA pH) 6.0 1 5.0-8.0 [facility] AND [id number] 23:03:00 Test Item Value Reference Range Interpretation Comments UA Protein (test code = UA Protein) 30 mg/dL [facility] AND [id number] 23:03:00 Test Item Value Reference Range Interpretation Comments UA Nitrite (test code Negative (03/17/16 5:03 = UA Nitrite) PM) [facility] AND [id number] 23:03:00 Test Item Value Reference Range Interpretation Comments UA Bili (test code = Negative *NA*(03/17/16 UA Bili) 5:03 PM) [facility] AND [id number] 23:03:00 Test Item Value Reference Range Interpretation Comments UA Blood (test code = Moderate *ABN*(03/17/16 UA Blood) 5:03 PM) [facility] AND [id number] 23:03:00 Test Item Value Reference Range Interpretation Comments UA Urobilinogen (test code = UA 4.0 0.1-1.0 Urobilinogen) [facility] AND [id number] 23:03:00 Test Item Value Reference Range Interpretation Comments UA Leuk Est (test Moderate *ABN*(03/17/16 code = UA Leuk Est) 5:03 PM) [facility] AND [id number] 23:03:00 Test Item Value Reference Range Interpretation Comments UA Sq Epi (test code = UA Sq Occasional /LPF Epi) [facility] AND [id number] 23:03:00 Test Item Value Reference Range Interpretation Comments UA RBC (test code = 3-5 /HPF See_Comment [Automa kuldip message] The UA RBC) system which ge nerated this result tra nsmitted reference range : <=2. The reference range was not used to interpr et this result as abiodun l/abnormal. [facility] AND [id number] 23:03:00 Test Item Value Reference Range Interpretation Comments UA Bacteria (test code = UA Many /HPF Bacteria) [facility] AND [id number] 23:03:00 Test Item Value Reference Range Interpretation Comments UA WBC (test code = UA WBC) 11-20 /HPF [facility] AND [id number] 23:03:00 Test Item Value Reference Range Interpretation Comments UA Color (test code = Yellow *NA*(03/17/16 UA Color) 5:03 PM) [facility] AND [id number] 23:03:00 Test Item Value Reference Range Interpretation Comments UA Turbidity (test code Cloudy *ABN*(03/17/16 = UA Turbidity) 5:03 PM) [facility] AND [id number] 23:03:00 Test Item Value Reference Range Interpretation Comments UA Ketones (test code Negative *NA*(03/17/16 = UA Ketones) 5:03 PM) [facility] AND [id number] 23:03:00 Test Item Value Reference Range Interpretation Comments UA Glucose (test code Negative (03/17/16 5:03 = UA Glucose) PM) [facility] AND [id number] 23:03:00 Test Item Value Reference Range Interpretation Comments UA Spec Grav (test code = UA Spec 1.025 1 Grav) [facility] AND [id number] 23:03:00 Test Item Value Reference Range Interpretation Comments UA pH (test code = UA pH) 6.0 1 5.0-8.0 [facility] AND [id number] 23:03:00 Test Item Value Reference Range Interpretation Comments UA Protein (test code = UA Protein) 30 mg/dL [facility] AND [id number] 23:03:00 Test Item Value Reference Range Interpretation Comments UA Nitrite (test code Negative (03/17/16 5:03 = UA Nitrite) PM) [facility] [id number] 23:03:00 Test Item Value Reference Range Interpretation Comments UA Bili (test code = Negative *NA*(03/17/16 UA Bili) 5:03 PM) [facility] [id number] 23:03:00 Test Item Value Reference Range Interpretation Comments UA Blood (test code = Moderate *ABN*(03/17/16 UA Blood) 5:03 PM) [facility] [id number] 23:03:00 Test Item Value Reference Range Interpretation Comments UA Urobilinogen (test code = UA 4.0 0.1-1.0 Urobilinogen) [facility] [id number] 23:03:00 Test Item Value Reference Range Interpretation Comments UA Leuk Est (test Moderate *ABN*(03/17/16 code = UA Leuk Est) 5:03 PM) [facility] [id number] 23:03:00 Test Item Value Reference Range Interpretation Comments UA Sq Epi (test code = UA Sq Occasional /LPF Epi) [facility] [id number] 23:03:00 Test Item Value Reference Range Interpretation Comments UA RBC (test code = 3-5 /HPF See_Comment [Automa kuldip message] The UA RBC) system which ge nerated this result tra nsmitted reference range : <=2. The reference range was not used to interpr et this result as abiodun l/abnormal. [facility] [id number] 23:03:00 Test Item Value Reference Range Interpretation Comments UA Bacteria (test code = UA Many /HPF Bacteria) [facility] [id number] 23:03:00 Test Item Value Reference Range Interpretation Comments UA WBC (test code = UA WBC) 11-20 /HPF [facility] [id number] 23:03:00 Test Item Value Reference Range Interpretation Comments UA Color (test code = Yellow *NA*(03/17/16 UA Color) 5:03 PM) [facility] [id number] 23:03:00 Test Item Value Reference Range Interpretation Comments UA Turbidity (test code Cloudy *ABN*(03/17/16 = UA Turbidity) 5:03 PM) [facility] [id number] 23:03:00 Test Item Value Reference Range Interpretation Comments UA Ketones (test code Negative *NA*(03/17/16 = UA Ketones) 5:03 PM) [facility] AND [id number] 23:03:00 Test Item Value Reference Range Interpretation Comments UA Glucose (test code Negative (03/17/16 5:03 = UA Glucose) PM) [facility] AND [id number] 23:03:00 Test Item Value Reference Range Interpretation Comments UA Spec Grav (test code = UA Spec 1.025 1 Grav) [facility] AND [id number] 23:03:00 Test Item Value Reference Range Interpretation Comments UA pH (test code = UA pH) 6.0 1 5.0-8.0 [facility] AND [id number] 23:03:00 Test Item Value Reference Range Interpretation Comments UA Protein (test code = UA Protein) 30 mg/dL [facility] AND [id number] 23:03:00 Test Item Value Reference Range Interpretation Comments UA Nitrite (test code Negative (03/17/16 5:03 = UA Nitrite) PM) [facility] AND [id number] 23:03:00 Test Item Value Reference Range Interpretation Comments UA Bili (test code = Negative *NA*(03/17/16 UA Bili) 5:03 PM) [facility] AND [id number] 23:03:00 Test Item Value Reference Range Interpretation Comments UA Blood (test code = Moderate *ABN*(03/17/16 UA Blood) 5:03 PM) [facility] AND [id number] 23:03:00 Test Item Value Reference Range Interpretation Comments UA Urobilinogen (test code = UA 4.0 0.1-1.0 Urobilinogen) [facility] AND [id number] 23:03:00 Test Item Value Reference Range Interpretation Comments UA Leuk Est (test Moderate *ABN*(03/17/16 code = UA Leuk Est) 5:03 PM) [facility] AND [id number] 23:03:00 Test Item Value Reference Range Interpretation Comments UA Sq Epi (test code = UA Sq Occasional /LPF Epi) [facility] AND [id number] 23:03:00 Test Item Value Reference Range Interpretation Comments UA RBC (test code = 3-5 /HPF See_Comment [Automa kuldip message] The UA RBC) system which ge nerated this result tra nsmitted reference range : <=2. The reference range was not used to interpr et this result as abiodun l/abnormal. [facility] AND [id number] 23:03:00 Test Item Value Reference Range Interpretation Comments UA Bacteria (test code = UA Many /HPF Bacteria) [facility] AND [id number] 23:03:00 Test Item Value Reference Range Interpretation Comments UA WBC (test code = UA WBC) 11-20 /HPF [facility] AND [id number] 23:03:00 Test Item Value Reference Range Interpretation Comments UA Color (test code = Yellow *NA*(03/17/16 UA Color) 5:03 PM) [facility] AND [id number] 23:03:00 Test Item Value Reference Range Interpretation Comments UA Turbidity (test code Cloudy *ABN*(03/17/16 = UA Turbidity) 5:03 PM) [facility] AND [id number] 23:03:00 Test Item Value Reference Range Interpretation Comments UA Ketones (test code Negative *NA*(03/17/16 = UA Ketones) 5:03 PM) [facility] AND [id number] 23:03:00 Test Item Value Reference Range Interpretation Comments UA Glucose (test code Negative (03/17/16 5:03 = UA Glucose) PM) [facility] AND [id number] 23:03:00 Test Item Value Reference Range Interpretation Comments UA Spec Grav (test code = UA Spec 1.025 1 Grav) [facility] AND [id number] 23:03:00 Test Item Value Reference Range Interpretation Comments UA pH (test code = UA pH) 6.0 1 5.0-8.0 [facility] AND [id number] 23:03:00 Test Item Value Reference Range Interpretation Comments UA Protein (test code = UA Protein) 30 mg/dL [facility] AND [id number] 23:03:00 Test Item Value Reference Range Interpretation Comments UA Nitrite (test code Negative (03/17/16 5:03 = UA Nitrite) PM) [facility] [id number] 23:03:00 Test Item Value Reference Range Interpretation Comments UA Bili (test code = Negative *NA*(03/17/16 UA Bili) 5:03 PM) [facility] [id number] 23:03:00 Test Item Value Reference Range Interpretation Comments UA Blood (test code = Moderate *ABN*(03/17/16 UA Blood) 5:03 PM) [facility] [id number] 23:03:00 Test Item Value Reference Range Interpretation Comments UA Urobilinogen (test code = UA 4.0 0.1-1.0 Urobilinogen) [facility] [id number] 23:03:00 Test Item Value Reference Range Interpretation Comments UA Leuk Est (test Moderate *ABN*(03/17/16 code = UA Leuk Est) 5:03 PM) [facility] [id number] 23:03:00 Test Item Value Reference Range Interpretation Comments UA Sq Epi (test code = UA Sq Occasional /LPF Epi) [facility] [id number] 23:03:00 Test Item Value Reference Range Interpretation Comments UA RBC (test code = 3-5 /HPF See_Comment [Automa kuldip message] The UA RBC) system which ge nerated this result tra nsmitted reference range : <=2. The reference range was not used to interpr et this result as abiodun l/abnormal. [facility] [id number] 23:03:00 Test Item Value Reference Range Interpretation Comments UA Bacteria (test code = UA Many /HPF Bacteria) [facility] [id number] 23:03:00 Test Item Value Reference Range Interpretation Comments UA WBC (test code = UA WBC) 11-20 /HPF [facility] [id number] 23:03:00 Test Item Value Reference Range Interpretation Comments UA Color (test code = Yellow *NA*(03/17/16 UA Color) 5:03 PM) [facility] [id number] 23:03:00 Test Item Value Reference Range Interpretation Comments UA Turbidity (test code Cloudy *ABN*(03/17/16 = UA Turbidity) 5:03 PM) [facility] [id number] 23:03:00 Test Item Value Reference Range Interpretation Comments UA Ketones (test code Negative *NA*(03/17/16 = UA Ketones) 5:03 PM) [facility] [id number] 23:03:00 Test Item Value Reference Range Interpretation Comments UA Glucose (test code Negative (03/17/16 5:03 = UA Glucose) PM) [facility] AND [id number] 23:03:00 Test Item Value Reference Range Interpretation Comments UA Spec Grav (test code = UA Spec 1.025 1 Grav) [facility] AND [id number] 23:03:00 Test Item Value Reference Range Interpretation Comments UA pH (test code = UA pH) 6.0 1 5.0-8.0 [facility] AND [id number] 23:03:00 Test Item Value Reference Range Interpretation Comments UA Protein (test code = UA Protein) 30 mg/dL [facility] AND [id number] 23:03:00 Test Item Value Reference Range Interpretation Comments UA Nitrite (test code Negative (03/17/16 5:03 = UA Nitrite) PM) [facility] AND [id number] 23:03:00 Test Item Value Reference Range Interpretation Comments UA Bili (test code = Negative *NA*(03/17/16 UA Bili) 5:03 PM) [facility] [facility] AND [id number] 23:03:00 Test Item Value Reference Range Interpretation Comments UA Blood (test code = Moderate *ABN*(03/17/16 UA Blood) 5:03 PM) [facility] AND [id number] 23:03:00 Test Item Value Reference Range Interpretation Comments UA Urobilinogen (test code = UA 4.0 0.1-1.0 Urobilinogen) [facility] AND [id number] 23:03:00 Test Item Value Reference Range Interpretation Comments UA Leuk Est (test Moderate *ABN*(03/17/16 code = UA Leuk Est) 5:03 PM) [facility] AND [id number] 23:03:00 Test Item Value Reference Range Interpretation Comments UA Sq Epi (test code = UA Sq Occasional /LPF Epi) [facility] AND [id number] 23:03:00 Test Item Value Reference Range Interpretation Comments UA RBC (test code = 3-5 /HPF See_Comment [Automa kuldip message] The UA RBC) system which ge nerated this result tra nsmitted reference range : <=2. The reference range was not used to interpr et this result as abiodun l/abnormal. [facility] AND [id number] 23:03:00 Test Item Value Reference Range Interpretation Comments UA Bacteria (test code = UA Many /HPF Bacteria) [facility] AND [id number] 23:03:00 Test Item Value Reference Range Interpretation Comments UA WBC (test code = UA WBC) 11-20 /HPF [facility] AND [id number] 23:03:00 Test Item Value Reference Range Interpretation Comments UA Color (test code = Yellow *NA*(03/17/16 UA Color) 5:03 PM) [facility] AND [id number] 23:03:00 Test Item Value Reference Range Interpretation Comments UA Turbidity (test code Cloudy *ABN*(03/17/16 = UA Turbidity) 5:03 PM) [facility] AND [id number] 23:03:00 Test Item Value Reference Range Interpretation Comments UA Ketones (test code Negative *NA*(03/17/16 = UA Ketones) 5:03 PM) [facility] AND [id number] 23:03:00 Test Item Value Reference Range Interpretation Comments UA Glucose (test code Negative (03/17/16 5:03 = UA Glucose) PM) [facility] AND [id number] 23:03:00 Test Item Value Reference Range Interpretation Comments UA Spec Grav (test code = UA Spec 1.025 1 Grav) [facility] AND [id number] 23:03:00 Test Item Value Reference Range Interpretation Comments UA pH (test code = UA pH) 6.0 1 5.0-8.0 [facility] AND [id number] 23:03:00 Test Item Value Reference Range Interpretation Comments UA Protein (test code = UA Protein) 30 mg/dL [facility] AND [id number] 23:03:00 Test Item Value Reference Range Interpretation Comments UA Nitrite (test code Negative (03/17/16 5:03 = [facility]A Nitrite) PM) [facility] [id number] 23:03:00 Test Item Value Reference Range Interpretation Comments UA Bili (test code = Negative *NA*(03/17/16 UA Bili) 5:03 PM) [facility] [id number] 23:03:00 Test Item Value Reference Range Interpretation Comments UA Blood (test code = Moderate *ABN*(03/17/16 UA Blood) 5:03 PM) [facility] [id number] 23:03:00 Test Item Value Reference Range Interpretation Comments UA Urobilinogen (test code = UA 4.0 0.1-1.0 Urobilinogen) [facility] [id number] 23:03:00 Test Item Value Reference Range Interpretation Comments UA Leuk Est (test Moderate *ABN*(03/17/16 code = UA Leuk Est) 5:03 PM) [facility] [id number] 23:03:00 Test Item Value Reference Range Interpretation Comments UA Sq Epi (test code = UA Sq Occasional /LPF Epi) [facility] [id number] 23:03:00 Test Item Value Reference Range Interpretation Comments UA RBC (test code = 3-5 /HPF See_Comment [Automa kuldip message] The UA RBC) system which ge nerated this result tra nsmitted reference range : <=2. The reference range was not used to interpr et this result as abiodun l/abnormal. [facility] [id number] 23:03:00 Test Item Value Reference Range Interpretation Comments UA Bacteria (test code = UA Many /HPF Bacteria) [facility] [id number] 23:03:00 Test Item Value Reference Range Interpretation Comments UA WBC (test code = UA WBC) 11-20 /HPF [facility] [id number] 22:42:00 Test Item Value Reference Range Interpretation Comments Lipase Lvl (test code = Lipase Lvl) 193 73-393 [facility] [id number] 22:42:00 Test Item Value Reference Range Interpretation Comments A/G Ratio (test code = A/G Ratio) 0.5 0.7-1.6 [facility] [id number] 22:42:00 Test Item Value Reference Range Interpretation Comments AGAP (test code = AGAP) 11.4 10.0-20.0 [facility]2016-12-23 22:42:00 Test Item Value Reference Range Interpretation Comments Globulin (test code = Globulin) 5.5 2.7-4.2 [facility]2016-12-23 22:42:00 Test Item Value Reference Range Interpretation Comments B/C Ratio (test code = B/C Ratio) 7 6- [facility]2016-12-23 22:42:00 Test Item Value Reference Range Interpretation Comments eGFR (test code = eGFR) 100 [facility]2016-12-23 22:42:00 Test Item Value Reference Range Interpretation Comments ALANINE AMINOTRANSFERASE 65 See_Comment [A utomated message] (test code = ALANINE The sys tem which AMINOTRANSFERASE) generated this result transmitted ref erence range: <=65. Th e reference range was not used to int erpret this result as normal/abnormal . [facility]2016-12-23 22:42:00 Test Item Value Reference Range Interpretation Comments Potassium Lvl (test code = Potassium 3.4 3.5-5.1 Lvl) [facility]2016-12-23 22:42:00 Test Item Value Reference Range Interpretation Comments BUN (test code = BUN) 6 - [facility]2016-12-23 22:42:00 Test Item Value Reference Range Interpretation Comments Sodium Lvl (test code = Sodium Lvl) 137 135-145 [facility]2016-12-23 22:42:00 Test Item Value Reference Range Interpretation Comments Creatinine Lvl (test code = Creatinine 0.85 0.50-1.40 Lvl) [facility]2016-12-23 22:42:00 Test Item Value Reference Range Interpretation Comments Bili Total (test code = Bili Total) 0.5 0.2-1.3 [facility]2016-12-23 22:42:00 Test Item Value Reference Range Interpretation Comments Chloride Lvl (test code = Chloride Lvl) 100 95-109 [facility]2016-12-23 22:42:00 Test Item Value Reference Range Interpretation Comments Calcium Lvl (test code = Calcium Lvl) 9.6 8.5-10.5 [place] [id number] 22:42:00 Test Item Value Reference Range Interpretation Comments CO2 (test code = CO2) 29 24-32 [facility]2016-12-23 22:42:00 Test Item Value Reference Range Interpretation Comments ASPARTATE TRANSAMINASE 59 See_Comment [Aut omated message] (test code = ASPARTATE The s ystem which TRANSAMINASE) generated this result transmitted ref erence range: <=37. Th e reference range was not used to interpr et this result as normal/abnormal . [facility]2016-12-23 22:42:00 Test Item Value Reference Range Interpretation Comments Total Protein (test code = Total 8.5 6.4-8.4 Protein) [facility]2016-12-23 22:42:00 Test Item Value Reference Range Interpretation Comments Glucose Lvl (test code = Glucose Lvl) 106 70-99 [facility]2016-12-23 22:42:00 Test Item Value Reference Range Interpretation Comments Albumin Lvl (test code = Albumin Lvl) 3.0 3.5-5.0 [facility]2016-12-23 22:42:00 Test Item Value Reference Range Interpretation Comments Alk Phos (test code = Alk Phos) 83 39-136 [place] [id number] 22:42:00 Test Item Value Reference Range Interpretation Comments S Preg (test code = S Negative *NA*(03/17/16 Preg) 4:42 PM) [id number] 22:42:00 Test Item Value Reference Range Interpretation Comments MPV (test code = MPV) 8.6 7.4-10.4 [facility] CenterGctwniaSARMCXQFIL8023-37-09 22:42:00 Test Item Value Reference Range Interpretation Comments MCHC (test code = MCHC) 34.3 32.0-36.0 [facility] CenterBcqootxIGBVZDKJBH8024-72-14 22:42:00 Test Item Value Reference Range Interpretation Comments Platelet (test code = Platelet) 133 133-450 [facility] CenterOacbdiwSJRFEUZJTZ6763-02-45 22:42:00 Test Item Value Reference Range Interpretation Comments RDW (test code = RDW) 16.8 11.5-14.5 [facility] CenterHwgmdreXLVNMTDOTO1486-31-29 22:42:00 Test Item Value Reference Range Interpretation Comments MCH (test code = MCH) 28.7 pg 27.0-31.0 [facility] CenterDzvvsydUKFSAUUBIH2972-28-51 22:42:00 Test Item Value Reference Range Interpretation Comments Hgb (test code = Hgb) 11.7 12.0-16.0 [facility] CenterTanrbrdWCQYNCBBXN4245-32-39 22:42:00 Test Item Value Reference Range Interpretation Comments Hct (test code = Hct) 34.1 36.0-48.0 [facility] CenterBqhanriNWRWFLKIRR8242-28-98 22:42:00 Test Item Value Reference Range Interpretation Comments WBC X 10x3 (test code = WBC X 10x3) 7.6 3.7-10.4 [facility] CenterMvvsrpnCEODBOLGVR8407-63-69 22:42:00 Test Item Value Reference Range Interpretation Comments MCV (test code = MCV) 83.6 80.0-98.0 [facility] CenterHnzqkhzFQSYLSXTFK4893-44-35 22:42:00 Test Item Value Reference Range Interpretation Comments RBC X 10x6 (test code = RBC X 10x6) 4.08 4.20-5.40 [facility] CenterKhdumpnEFFCPAUOHU4619-09-50 22:42:00 Test Item Value Reference Range Interpretation Comments Eosinophils (test code = 0.6 See_Comment [A utomated message] The Eosinophils) system which ge nerated this result tra nsmitted reference range : <=4.0. The reference r nilam was not used to int erpret this result as normal/abnormal . [facility] [id number] 22:42:00 Test Item Value Reference Range Interpretation Comments Lymphocytes (test code = Lymphocytes) 16.1 20.0-40.0 [facility] CenterMzenunxXQDECEQRYU2662-88-18 22:42:00 Test Item Value Reference Range Interpretation Comments Monocytes (test code = Monocytes) 12.9 2.0-12.0 [facility] CenterIhfeviyVVQTRCACSR2246-41-29 22:42:00 Test Item Value Reference Range Interpretation Comments Segs-Bands # (test code = Segs-Bands #) 5.3 1.5-8.1 [facility] C[id number] 22:42:00 Test Item Value Reference Range Interpretation Comments Monocytes # (test code 1.0 See_Comment [Aut omated message] The = Monocytes #) system which generated this result tra nsmitted reference range : <=0.8. The reference r nilam was not used to int erpret this result as normal/abnormal . [facility] CenterCxyrtmhFAYPVXRZYX4067-01-94 22:42:00 Test Item Value Reference Range Interpretation Comments Lymphocytes # (test code = Lymphocytes 1.2 1.0-5.5 #) [facility] CenterWueqwzsYMFWSXUAMN4080-08-48 22:42:00 Test Item Value Reference Range Interpretation Comments Basophils (test code = 0.2 See_Comment [Aut omated message] The Basophils) system which ge nerated this result tra nsmitted reference range : <=1.0. The reference r nilam was not used to int erpret this result as normal/abnormal . [facility] CenterMfejgfaAWHPYDSDJQ6668-07-00 22:42:00 Test Item Value Reference Range Interpretation Comments Segs (test code = Segs) 70.2 45.0-75.0 [facility] [id number] 22:42:00 Test Item Value Reference Range Interpretation Comments Influ B (test code = Negative (03/17/16 4:42 Influ B) PM) [facility] - [id number] 22:42:00 Test Item Value Reference Range Interpretation Comments Influ A (test code = Negative (03/17/16 4:42 Influ A) PM) [facility]2016-12-23 22:42:00 Test Item Value Reference Range Interpretation Comments Lipase Lvl (test code = Lipase Lvl) 193 73-393 [facility]2016-12-23 22:42:00 Test Item Value Reference Range Interpretation Comments A/G Ratio (test code = A/G Ratio) 0.5 0.7-1.6 [facility]2016-12-23 22:42:00 Test Item Value Reference Range Interpretation Comments AGAP (test code = AGAP) 11.4 10.0-20.0 [facility]2016-12-23 22:42:00 Test Item Value Reference Range Interpretation Comments Globulin (test code = Globulin) 5.5 2.7-4.2 [facility]2016-12-23 22:42:00 Test Item Value Reference Range Interpretation Comments B/C Ratio (test code = B/C Ratio) 7 6-25 [facility]2016-12-23 22:42:00 Test Item Value Reference Range Interpretation Comments eGFR (test code = eGFR) 100 [facility]2016-12-23 22:42:00 Test Item Value Reference Range Interpretation Comments ALANINE AMINOTRANSFERASE 65 See_Comment [A utomated message] (test code = ALANINE The sys tem which AMINOTRANSFERASE) generated this result transmitted ref erence range: <=65. Th e reference range was not used to int erpret this result as normal/abnormal . [facility]2016-12-23 22:42:00 Test Item Value Reference Range Interpretation Comments Potassium Lvl (test code = Potassium 3.4 3.5-5.1 Lvl) [facility]2016-12-23 22:42:00 Test Item Value Reference Range Interpretation Comments BUN (test code = BUN) 6 7-22 [facility]2016-12-23 22:42:00 Test Item Value Reference Range Interpretation Comments Sodium Lvl (test code = Sodium Lvl) 137 135-145 [facility]2016-12-23 22:42:00 Test Item Value Reference Range Interpretation Comments Creatinine Lvl (test code = Creatinine 0.85 0.50-1.40 Lvl) [facility]2016-12-23 22:42:00 Test Item Value Reference Range Interpretation Comments Bili Total (test code = Bili Total) 0.5 0.2-1.3 [place] [id number] 22:42:00 Test Item Value Reference Range Interpretation Comments Chloride Lvl (test code = Chloride Lvl) 100 95-109 [facility]2016-12-23 22:42:00 Test Item Value Reference Range Interpretation Comments Calcium Lvl (test code = Calcium Lvl) 9.6 8.5-10.5 [facility]2016-12-23 22:42:00 Test Item Value Reference Range Interpretation Comments CO2 (test code = CO2) 29 24-32 [facility]2016-12-23 22:42:00 Test Item Value Reference Range Interpretation Comments ASPARTATE TRANSAMINASE 59 See_Comment [Aut omated message] (test code = ASPARTATE The s ystem which TRANSAMINASE) generated this result transmitted ref erence range: <=37. Th e reference range was not used to interpr et this result as normal/abnormal . [facility] HospitalOhmconnect [id number] 22:42:00 Test Item Value Reference Range Interpretation Comments Total Protein (test code = Total 8.5 6.4-8.4 Protein) [facility]2016-12-23 22:42:00 Test Item Value Reference Range Interpretation Comments Glucose Lvl (test code = Glucose Lvl) 106 70-99 [facility]2016-12-23 22:42:00 Test Item Value Reference Range Interpretation Comments Albumin Lvl (test code = Albumin Lvl) 3.0 3.5-5.0 [facility]2016-12-23 22:42:00 Test Item Value Reference Range Interpretation Comments Alk Phos (test code = Alk Phos) 83 39-136 [place] [id number] 22:42:00 Test Item Value Reference Range Interpretation Comments S Preg (test code = S Negative *NA*(03/17/16 Preg) 4:42 PM) [facility] CenterFidbzmxKLREILQWZD9983-30-42 22:42:00 Test Item Value Reference Range Interpretation Comments MPV (test code = MPV) 8.6 7.4-10.4 [facility] CenterWikkrdfOTTBMNJBCB0770-04-27 22:42:00 Test Item Value Reference Range Interpretation Comments MCHC (test code = MCHC) 34.3 32.0-36.0 [facility] CenterEuzhlgaMSXKIPVMON4467-37-99 22:42:00 Test Item Value Reference Range Interpretation Comments Platelet (test code = Platelet) 133 133-450 [facility] CenterQtwcdirRLYBKJKDKY0157-74-89 22:42:00 Test Item Value Reference Range Interpretation Comments RDW (test code = RDW) 16.8 11.5-14.5 [facility] CenterGtmwspuTECDMJDBNC6565-62-01 22:42:00 Test Item Value Reference Range Interpretation Comments MCH (test code = MCH) 28.7 pg 27.0-31.0 [facility] CenterQycrxunWZOMSXOLWW4938-95-71 22:42:00 Test Item Value Reference Range Interpretation Comments Hgb (test code = Hgb) 11.7 12.0-16.0 [facility] CenterJnyacsaVWKNMAPRIP9066-89-64 22:42:00 Test Item Value Reference Range Interpretation Comments Hct (test code = Hct) 34.1 36.0-48.0 [place] [id number] 22:42:00 Test Item Value Reference Range Interpretation Comments WBC X 10x3 (test code = WBC X 10x3) 7.6 3.7-10.4 [facility] CenterSqlbtfeKNWRBUVCAA1990-79-80 22:42:00 Test Item Value Reference Range Interpretation Comments MCV (test code = MCV) 83.6 80.0-98.0 [facility] CenterGdjpfeqZDLKCVPRXF0822-13-48 22:42:00 Test Item Value Reference Range Interpretation Comments RBC X 10x6 (test code = RBC X 10x6) 4.08 4.20-5.40 [place] [address]-12-23 22:42:00 Test Item Value Reference Range Interpretation Comments Eosinophils (test code = 0.6 See_Comment [A utomated message] The Eosinophils) system which ge nerated this result tra nsmitted reference range : <=4.0. The reference r nilam was not used to int erpret this result as normal/abnormal . [facility] CenterIphltoeUQOYJNYHEN2989-45-64 22:42:00 Test Item Value Reference Range Interpretation Comments Lymphocytes (test code = Lymphocytes) 16.1 20.0-40.0 [facility] CenterIbdvmzhFEGQQPTJSI1648-43-02 22:42:00 Test Item Value Reference Range Interpretation Comments Monocytes (test code = Monocytes) 12.9 2.0-12.0 [facility] CenterHpqpnelAUCYKMTOWR3864-70-71 22:42:00 Test Item Value Reference Range Interpretation Comments Segs-Bands # (test code = Segs-Bands #) 5.3 1.5-8.1 [facility] CenterNngvqkdQLDVLYZWLP4684-58-72 22:42:00 Test Item Value Reference Range Interpretation Comments Monocytes # (test code 1.0 See_Comment [Aut omated message] The = Monocytes #) system which generated this result tra nsmitted reference range : <=0.8. The reference r nilam was not used to int erpret this result as normal/abnormal . [facility] CenterUuokcimNXEAVNIYGI3503-97-18 22:42:00 Test Item Value Reference Range Interpretation Comments Lymphocytes # (test code = Lymphocytes 1.2 1.0-5.5 #) [facility] CenterGsqswytVYTLMUMIAV5002-68-02 22:42:00 Test Item Value Reference Range Interpretation Comments Basophils (test code = 0.2 See_Comment [Aut omated message] The Basophils) system which ge nerated this result tra nsmitted reference range : <=1.0. The reference r nilam was not used to int erpret this result as normal/abnormal . [facility] CenterKhedpnrZJIJTIBTUD1263-37-11 22:42:00 Test Item Value Reference Range Interpretation Comments Segs (test code = Segs) 70.2 45.0-75.0 [facility] FUJZOJJX3906-58-77 22:42:00 Test Item Value Reference Range Interpretation Comments Influ B (test code = Negative (03/17/16 4:42 Influ B) PM) [facility] [id number] 22:42:00 Test Item Value Reference Range Interpretation Comments Influ A (test code = Negative (03/17/16 4:42 Influ A) PM) [facility]2016-12-23 22:42:00 Test Item Value Reference Range Interpretation Comments Lipase Lvl (test code = Lipase Lvl) 193 73-393 [facility]2016-12-23 22:42:00 Test Item Value Reference Range Interpretation Comments A/G Ratio (test code = A/G Ratio) 0.5 0.7-1.6 [facility]2016-12-23 22:42:00 Test Item Value Reference Range Interpretation Comments AGAP (test code = AGAP) 11.4 10.0-20.0 [facility]2016-12-23 22:42:00 Test Item Value Reference Range Interpretation Comments Globulin (test code = Globulin) 5.5 2.7-4.2 [facility]2016-12-23 22:42:00 Test Item Value Reference Range Interpretation Comments B/C Ratio (test code = B/C Ratio) 7 6-25 [facility]2016-12-23 22:42:00 Test Item Value Reference Range Interpretation Comments eGFR (test code = eGFR) 100 [facility]2016-12-23 22:42:00 Test Item Value Reference Range Interpretation Comments ALANINE AMINOTRANSFERASE 65 See_Comment [A utomated message] (test code = ALANINE The sys tem which AMINOTRANSFERASE) generated this result transmitted ref erence range: <=65. Th e reference range was not used to int erpret this result as normal/abnormal . [facility] HospitalC[facility]PITALILIVZ7922-60-02 22:42:00 Test Item Value Reference Range Interpretation Comments Potassium Lvl (test code = Potassium 3.4 3.5-5.1 Lvl) [facility]2016-12-23 22:42:00 Test Item Value Reference Range Interpretation Comments BUN (test code = BUN) 6 7-22 [place] 583986-12-23 22:42:00 Test Item Value Reference Range Interpretation Comments Sodium Lvl (test code = Sodium Lvl) 137 135-145 [facility]2016-12-23 22:42:00 Test Item Value Reference Range Interpretation Comments Creatinine Lvl (test code = Creatinine 0.85 0.50-1.40 Lvl) [facility]2016-12-23 22:42:00 Test Item Value Reference Range Interpretation Comments Bili Total (test code = Bili Total) 0.5 0.2-1.3 [facility]2016-12-23 22:42:00 Test Item Value Reference Range Interpretation Comments Chloride Lvl (test code = Chloride Lvl) 100 95-109 [facility]2016-12-23 22:42:00 Test Item Value Reference Range Interpretation Comments Calcium Lvl (test code = Calcium Lvl) 9.6 8.5-10.5 [facility]2016-12-23 22:42:00 Test Item Value Reference Range Interpretation Comments CO2 (test code = CO2) 29 24-32 [facility]2016-12-23 22:42:00 Test Item Value Reference Range Interpretation Comments ASPARTATE TRANSAMINASE 59 See_Comment [Aut omated message] (test code = ASPARTATE The s te which TRANSAMINASE) generated this result transmitted ref erence range: <=37. Th e reference range was not used to interpr et this result as normal/abnormal . [facility]2016-12-23 22:42:00 Test Item Value Reference Range Interpretation Comments Total Protein (test code = Total 8.5 6.4-8.4 Protein) [facility]2016-12-23 22:42:00 Test Item Value Reference Range Interpretation Comments Glucose Lvl (test code = Glucose Lvl) 106 70-99 [facility]2016-12-23 22:42:00 Test Item Value Reference Range Interpretation Comments Albumin Lvl (test code = Albumin Lvl) 3.0 3.5-5.0 [facility]CHE[facility] [id number] 22:42:00 Test Item Value Reference Range Interpretation Comments Alk Phos (test code = Alk Phos) 83 39-136 [place] [id number] 22:42:00 Test Item Value Reference Range Interpretation Comments S Preg (test code = S Negative *NA*(03/17/16 Preg) 4:42 PM) [facility] CenterSvqdnhjHVASRUDPAU0019-43-46 22:42:00 Test Item Value Reference Range Interpretation Comments MPV (test code = MPV) 8.6 7.4-10.4 [facility] CenterCjifyaiPECJYBXPPJ4171-44-48 22:42:00 Test Item Value Reference Range Interpretation Comments MCHC (test code = MCHC) 34.3 32.0-36.0 [facility] CenterXubukdoMMZPQLDIWZ9341-60-89 22:42:00 Test Item Value Reference Range Interpretation Comments Platelet (test code = Platelet) 133 133-450 [facility] CenterDnevtbpQTEZDRFLWI7322-35-75 22:42:00 Test Item Value Reference Range Interpretation Comments RDW (test code = RDW) 16.8 11.5-14.5 [facility] CenterQvkyqhzBMOZKBPZEA5320-38-18 22:42:00 Test Item Value Reference Range Interpretation Comments MCH (test code = MCH) 28.7 pg 27.0-31.0 [facility] CenterTurscnyNUQKHWHBFL3529-62-41 22:42:00 Test Item Value Reference Range Interpretation Comments Hgb (test code = Hgb) 11.7 12.0-16.0 [facility]XpbusmzZBGOMNTNGT6729-71-47 22:42:00 Test Item Value Reference Range Interpretation Comments Hct (test code = Hct) 34.1 36.0-48.0 [facility] CenterCufgotmCEAIIDXIRH1966-11-36 22:42:00 Test Item Value Reference Range Interpretation Comments WBC X 10x3 (test code = WBC X 10x3) 7.6 3.7-10.4 [facility] CenterLfraukkPBBPWOIEBP4566-08-13 22:42:00 Test Item Value Reference Range Interpretation Comments MCV (test code = MCV) 83.6 80.0-98.0 [facility] CenterVdksmhfLBWBHIZDCP8689-13-79 22:42:00 Test Item Value Reference Range Interpretation Comments RBC X 10x6 (test code = RBC X 10x6) 4.08 4.20-5.40 [facility] CenterJlvzthkMKRUMBKVPE6327-69-14 22:42:00 Test Item Value Reference Range Interpretation Comments Eosinophils (test code = 0.6 See_Comment [A utomated message] The Eosinophils) system which ge nerated this result tra nsmitted reference range : <=4.0. The reference r nilam was not used to int erpret this result as normal/abnormal . [facility] CenterOsixcwpDQQEVCHJQY9991-07-17 22:42:00 Test Item Value Reference Range Interpretation Comments Lymphocytes (test code = Lymphocytes) 16.1 20.0-40.0 [facility] CenterXmiaxtdCZYPJGPJSV3077-98-08 22:42:00 Test Item Value Reference Range Interpretation Comments Monocytes (test code = Monocytes) 12.9 2.0-12.0 [facility] CenterSxsqtfuDMSEHZAEDS6208-54-38 22:42:00 Test Item Value Reference Range Interpretation Comments Segs-Bands # (test code = Segs-Bands #) 5.3 1.5-8.1 [facility] CenterXyiwvzsXOTBOBBALM7703-04-56 22:42:00 Test Item Value Reference Range Interpretation Comments Monocytes # (test code 1.0 See_Comment [Aut omated message] The = Monocytes #) system which generated this result tra nsmitted reference range : <=0.8. The reference r nilam was not used to int erpret this result as normal/abnormal . [facility] CenterFesowsqRAENKLEGQZ7762-64-39 22:42:00 Test Item Value Reference Range Interpretation Comments Lymphocytes # (test code = Lymphocytes 1.2 1.0-5.5 #) [facility] CenterPthsvnmZYATIWRRQR2336-02-83 22:42:00 Test Item Value Reference Range Interpretation Comments Basophils (test code = 0.2 See_Comment [Aut omated message] The Basophils) system which ge nerated this result tra nsmitted reference range : <=1.0. The reference r nilam was not used to int erpret this result as normal/abnormal . [facility] CenterMoxojleZGSQLHZZCP4571-25-31 22:42:00 Test Item Value Reference Range Interpretation Comments Segs (test code = Segs) 70.2 45.0-75.0 [facility]VIR[facility] [id number] 22:42:00 Test Item Value Reference Range Interpretation Comments Influ B (test code = Negative (03/17/16 4:42 Influ B) PM) [facility] CenterannVIRAL - [id number] 22:42:00 Test Item Value Reference Range Interpretation Comments Influ A (test code = Negative (03/17/16 4:42 Influ A) PM) [facility] iSnapannCHEM [id number] 22:42:00 Test Item Value Reference Range Interpretation Comments Lipase Lvl (test code = Lipase Lvl) 193 73-393 [facility] iSnapannCHEM [id number] 22:42:00 Test Item Value Reference Range Interpretation Comments A/G Ratio (test code = A/G Ratio) 0.5 0.7-1.6 [facility] iSnapannOhmconnect [id number] 22:42:00 Test Item Value Reference Range Interpretation Comments AGAP (test code = AGAP) 11.4 10.0-20.0 [facility] iSnapannOhmconnect [id number] 22:42:00 Test Item Value Reference Range Interpretation Comments Globulin (test code = Globulin) 5.5 2.7-4.2 [facility] [employer]SnapannOhmconnect [id number] 22:42:00 Test Item Value Reference Range Interpretation Comments B/C Ratio (test code = B/C Ratio) 7 6-25 [facility] iSnapannOhmconnect [id number] 22:42:00 Test Item Value Reference Range Interpretation Comments eGFR (test code = eGFR) 100 [facility]Easy[facility] [id number] 22:42:00 Test Item Value Reference Range Interpretation Comments ALANINE AMINOTRANSFERASE 65 See_Comment [A utomated message] (test code = ALANINE The sys tem which AMINOTRANSFERASE) generated this result transmitted ref erence range: <=65. Th e reference range was not used to int erpret this result as normal/abnormal . [facility] [employer] [id number] 22:42:00 Test Item Value Reference Range Interpretation Comments Potassium Lvl (test code = Potassium 3.4 3.5-5.1 Lvl) [facility] [id number] 22:42:00 Test Item Value Reference Range Interpretation Comments BUN (test code = BUN) 6 7-22 [facility] CenterannOhmconnect [id number] 22:42:00 Test Item Value Reference Range Interpretation Comments Sodium Lvl (test code = Sodium Lvl) 137 135-145 [facility]2016-12-23 22:42:00 Test Item Value Reference Range Interpretation Comments Creatinine Lvl (test code = Creatinine 0.85 0.50-1.40 Lvl) [facility]2016-12-23 22:42:00 Test Item Value Reference Range Interpretation Comments Bili Total (test code = Bili Total) 0.5 0.2-1.3 [facility]2016-12-23 22:42:00 Test Item Value Reference Range Interpretation Comments Chloride Lvl (test code = Chloride Lvl) 100 95-109 [facility]2016-12-23 22:42:00 Test Item Value Reference Range Interpretation Comments Calcium Lvl (test code = Calcium Lvl) 9.6 8.5-10.5 [facility]2016-12-23 22:42:00 Test Item Value Reference Range Interpretation Comments CO2 (test code = CO2) 29 24-32 [facility]2016-12-23 22:42:00 Test Item Value Reference Range Interpretation Comments ASPARTATE TRANSAMINASE 59 See_Comment [Aut omated message] (test code = ASPARTATE The s ystem which TRANSAMINASE) generated this result transmitted ref erence range: <=37. Th e reference range was not used to interpr et this result as normal/abnormal . [facility]Oh[facility] [id number] 22:42:00 Test Item Value Reference Range Interpretation Comments Total Protein (test code = Total 8.5 6.4-8.4 Protein) [facility]2016-12-23 22:42:00 Test Item Value Reference Range Interpretation Comments Glucose Lvl (test code = Glucose Lvl) 106 70-99 [facility] [id number] 22:42:00 Test Item Value Reference Range Interpretation Comments Albumin Lvl (test code = Albumin Lvl) 3.0 3.5-5.0 [facility] [id number] 22:42:00 Test Item Value Reference Range Interpretation Comments Alk Phos (test code = Alk Phos) 83 39-136 [facility] HospitalGacjnfdBZOLQIRWTLOSV8585-31-92 22:42:00 Test Item Value Reference Range Interpretation Comments S Preg (test code = S Negative *NA*(03/17/16 Preg) 4:42 PM) [facility] HospitalOrrlqxcRYANRORGZO3798-84-04 22:42:00 Test Item Value Reference Range Interpretation Comments MPV (test code = MPV) 8.6 7.4-10.4 [facility] CenterLkikcrbGDBIUFQQBN4477-38-05 22:42:00 Test Item Value Reference Range Interpretation Comments MCHC (test code = MCHC) 34.3 32.0-36.0 [facility] CenterTzcefkgBGUGZGDGPX1189-80-77 22:42:00 Test Item Value Reference Range Interpretation Comments Platelet (test code = Platelet) 133 133-450 [facility] CenterUokxnexSSMNKEGZXJ2786-29-40 22:42:00 Test Item Value Reference Range Interpretation Comments RDW (test code = RDW) 16.8 11.5-14.5 [facility] CenterDbmknlzNAWASBPQXR3423-37-89 22:42:00 Test Item Value Reference Range Interpretation Comments MCH (test code = MCH) 28.7 pg 27.0-31.0 [facility] CenterXrkomdiXKSTLCKJES6869-50-99 22:42:00 Test Item Value Reference Range Interpretation Comments Hgb (test code = Hgb) 11.7 12.0-16.0 [facility] CenterQkrbciuTNLZRRFEGM5034-02-98 22:42:00 Test Item Value Reference Range Interpretation Comments Hct (test code = Hct) 34.1 36.0-48.0 [facility] CenterWyocjhrOZETJGCOLU3266-48-75 22:42:00 Test Item Value Reference Range Interpretation Comments WBC X 10x3 (test code = WBC X 10x3) 7.6 3.7-10.4 [facility] CenterVulldujGWGWXRCHBN2168-03-65 22:42:00 Test Item Value Reference Range Interpretation Comments MCV (test code = MCV) 83.6 80.0-98.0 [facility] CenterYxkdbiiOMKWHUHILV3541-76-13 22:42:00 Test Item Value Reference Range Interpretation Comments RBC X 10x6 (test code = RBC X 10x6) 4.08 4.20-5.40 [facility] CenterJxqkyvmJHCVODHKBP7900-92-71 22:42:00 Test Item Value Reference Range Interpretation Comments Eosinophils (test code = 0.6 See_Comment [A utomated message] The Eosinophils) system which ge nerated this result tra nsmitted reference range : <=4.0. The reference r nilam was not used to int erpret this result as normal/abnormal . [place] [id number] 22:42:00 Test Item Value Reference Range Interpretation Comments Lymphocytes (test code = Lymphocytes) 16.1 20.0-40.0 [facility] CenterWzktdavKBVRILRHAJ2086-40-63 22:42:00 Test Item Value Reference Range Interpretation Comments Monocytes (test code = Monocytes) 12.9 2.0-12.0 [facility] CenterHhjohqfFZMQTBSEYY9937-23-90 22:42:00 Test Item Value Reference Range Interpretation Comments Segs-Bands # (test code = Segs-Bands #) 5.3 1.5-8.1 [facility] CenterUsfybeaHPCYQQPJNW0681-79-20 22:42:00 Test Item Value Reference Range Interpretation Comments Monocytes # (test code 1.0 See_Comment [Aut omated message] The = Monocytes #) system which generated this result tra nsmitted reference range : <=0.8. The reference r nilam was not used to int erpret this result as normal/abnormal . [facility] CenterGzxakiiAZUAMWPRFB8546-21-77 22:42:00 Test Item Value Reference Range Interpretation Comments Lymphocytes # (test code = Lymphocytes 1.2 1.0-5.5 #) [facility] [id number] 22:42:00 Test Item Value Reference Range Interpretation Comments Basophils (test code = 0.2 See_Comment [Aut omated message] The Basophils) system which ge nerated this result tra nsmitted reference range : <=1.0. The reference r nilam was not used to int erpret this result as normal/abnormal . [facility] CenterRotwqjsZZOEOKPEYI6645-58-75 22:42:00 Test Item Value Reference Range Interpretation Comments Segs (test code = Segs) 70.2 45.0-75.0 [facility] HospitalVIRAL - [id number] 22:42:00 Test Item Value Reference Range Interpretation Comments Influ B (test code = Negative (03/17/16 4:42 Influ B) PM) [facility] HospitalVIR[facility] - [id number] 22:42:00 Test Item Value Reference Range Interpretation Comments Influ A (test code = Negative (03/17/16 4:42 Influ A) PM) [facility] HospitalOhm[facility] [id number] 22:42:00 Test Item Value Reference Range Interpretation Comments Lipase Lvl (test code = Lipase Lvl) 193 73-393 [facility]Oh[facility] [id number] 22:42:00 Test Item Value Reference Range Interpretation Comments A/G Ratio (test code = A/G Ratio) 0.5 0.7-1.6 [facility]2016-12-23 22:42:00 Test Item Value Reference Range Interpretation Comments AGAP (test code = AGAP) 11.4 10.0-20.0 [facility]2016-12-23 22:42:00 Test Item Value Reference Range Interpretation Comments Globulin (test code = Globulin) 5.5 2.7-4.2 [facility]2016-12-23 22:42:00 Test Item Value Reference Range Interpretation Comments B/C Ratio (test code = B/C Ratio) 7 09-17 [facility] CenterBreeze TechnologyCANNON MEMORIAL HOSPITALNBWEU7744-76-86 22:42:00 Test Item Value Reference Range Interpretation Comments Lipase Lvl (test code = Lipase Lvl) 193 73-393 [facility]2016-12-23 22:42:00 Test Item Value Reference Range Interpretation Comments A/G Ratio (test code = A/G Ratio) 0.5 0.7-1.6 [facility]2016-12-23 22:42:00 Test Item Value Reference Range Interpretation Comments AGAP (test code = AGAP) 11.4 10.0-20.0 [facility] CenterBreeze TechnologyCANNON MEMORIAL HOSPITALUKPGF5193-19-36 22:42:00 Test Item Value Reference Range Interpretation Comments Globulin (test code = Globulin) 5.5 2.7-4.2 [facility] CenterBreeze TechnologyCANNON MEMORIAL [id number] 22:42:00 Test Item Value Reference Range Interpretation Comments B/C Ratio (test code = B/C Ratio) 09-17 [facility] CenterBreeze TechnologyCANNON MEMORIAL [id number] 22:42:00 Test Item Value Reference Range Interpretation Comments eGFR (test code = eGFR) 100 [facility]2016-12-23 22:42:00 Test Item Value Reference Range Interpretation Comments ALANINE AMINOTRANSFERASE 65 See_Comment [A utomated message] (test code = ALANINE The sys tem which AMINOTRANSFERASE) generated this result transmitted ref erence range: <=65. Th e reference range was not used to int erpret this result as normal/abnormal . [facility] CenterEasyProperty [id number] 22:42:00 Test Item Value Reference Range Interpretation Comments Potassium Lvl (test code = Potassium 3.4 3.5-5.1 Lvl) [facility]2016-12-23 22:42:00 Test Item Value Reference Range Interpretation Comments eGFR (test code = eGFR) 100 [facility]2016-12-23 22:42:00 Test Item Value Reference Range Interpretation Comments BUN (test code = BUN) 6 7-22 [facility]2016-12-23 22:42:00 Test Item Value Reference Range Interpretation Comments Sodium Lvl (test code = Sodium Lvl) 137 135-145 [facility]2016-12-23 22:42:00 Test Item Value Reference Range Interpretation Comments Creatinine Lvl (test code = Creatinine 0.85 0.50-1.40 Lvl) [facility]2016-12-23 22:42:00 Test Item Value Reference Range Interpretation Comments Bili Total (test code = Bili Total) 0.5 0.2-1.3 [facility]2016-12-23 22:42:00 Test Item Value Reference Range Interpretation Comments Chloride Lvl (test code = Chloride Lvl) 100 95-109 [facility]2016-12-23 22:42:00 Test Item Value Reference Range Interpretation Comments Calcium Lvl (test code = Calcium Lvl) 9.6 8.5-10.5 [facility]2016-12-23 22:42:00 Test Item Value Reference Range Interpretation Comments CO2 (test code = CO2) 29 24-32 [facility]2016-12-23 22:42:00 Test Item Value Reference Range Interpretation Comments ASPARTATE TRANSAMINASE 59 See_Comment [Aut omated message] (test code = ASPARTATE The s ystem which TRANSAMINASE) generated this result transmitted ref erence range: <=37. Th e reference range was not used to interpr et this result as normal/abnormal . [facility]2016-12-23 22:42:00 Test Item Value Reference Range Interpretation Comments Total Protein (test code = Total 8.5 6.4-8.4 Protein) [facility]2016-12-23 22:42:00 Test Item Value Reference Range Interpretation Comments Glucose Lvl (test code = Glucose Lvl) 106 70-99 [facility]2016-12-23 22:42:00 Test Item Value Reference Range Interpretation Comments ALANINE AMINOTRANSFERASE 65 See_Comment [A utomated message] (test code = ALANINE The sys tem which AMINOTRANSFERASE) generated this result transmitted ref erence range: <=65. Th e reference range was not used to int erpret this result as normal/abnormal . [facility] HospitalOhm[facility] [id number] 22:42:00 Test Item Value Reference Range Interpretation Comments Albumin Lvl (test code = Albumin Lvl) 3.0 3.5-5.0 [facility]2016-12-23 22:42:00 Test Item Value Reference Range Interpretation Comments Alk Phos (test code = Alk Phos) 83 39-136 [place] [id number] 22:42:00 Test Item Value Reference Range Interpretation Comments S Preg (test code = S Negative *NA*(03/17/16 Preg) 4:42 PM) [facility] CenterUybxdevWXTAQGPJVX8988-22-07 22:42:00 Test Item Value Reference Range Interpretation Comments MPV (test code = MPV) 8.6 7.4-10.4 [facility] CenterIpiyebwBIQFWURLDY5411-32-63 22:42:00 Test Item Value Reference Range Interpretation Comments MCHC (test code = MCHC) 34.3 32.0-36.0 [facility] CenterBiwxqllACXUOURMAQ1270-79-74 22:42:00 Test Item Value Reference Range Interpretation Comments Platelet (test code = Platelet) 133 133-450 [facility] CenterIiawnqmKNEMUIZLNY5338-55-39 22:42:00 Test Item Value Reference Range Interpretation Comments RDW (test code = RDW) 16.8 11.5-14.5 [facility] CenterKiblmxbXZLVPHLNKS7182-29-91 22:42:00 Test Item Value Reference Range Interpretation Comments MCH (test code = MCH) 28.7 pg 27.0-31.0 [facility] CenterYkddjwbNYNMKNLLDP5963-97-16 22:42:00 Test Item Value Reference Range Interpretation Comments Hgb (test code = Hgb) 11.7 12.0-16.0 [facility] CenterJhivispCSDDUSORPH3945-18-45 22:42:00 Test Item Value Reference Range Interpretation Comments Hct (test code = Hct) 34.1 36.0-48.0 [facility] CenterEasyProperty [id number] 22:42:00 Test Item Value Reference Range Interpretation Comments Potassium Lvl (test code = Potassium 3.4 3.5-5.1 Lvl) [facility] CenterCtyccbiNPKYMTLOAU7609-40-07 22:42:00 Test Item Value Reference Range Interpretation Comments WBC X 10x3 (test code = WBC X 10x3) 7.6 3.7-10.4 [facility] CenterThlefulLLKZNEEQOM2706-01-62 22:42:00 Test Item Value Reference Range Interpretation Comments MCV (test code = MCV) 83.6 80.0-98.0 [facility] CenterIhtpfodPDGMKRVPRM0573-24-46 22:42:00 Test Item Value Reference Range Interpretation Comments RBC X 10x6 (test code = RBC X 10x6) 4.08 4.20-5.40 [facility] CenterCckkvdiQBYJUBGGME6747-85-23 22:42:00 Test Item Value Reference Range Interpretation Comments Eosinophils (test code = 0.6 See_Comment [A utomated message] The Eosinophils) system which ge nerated this result tra nsmitted reference range : <=4.0. The reference r nilam was not used to int erpret this result as normal/abnormal . [facility] CenterBxtmxfuQCZGXMJRCH8142-28-83 22:42:00 Test Item Value Reference Range Interpretation Comments Lymphocytes (test code = Lymphocytes) 16.1 20.0-40.0 [facility] CenterHcosendOLISNIJKLK5801-32-45 22:42:00 Test Item Value Reference Range Interpretation Comments Monocytes (test code = Monocytes) 12.9 2.0-12.0 [facility] CenterNfsqjvjVJCYCAQWMQ4589-05-64 22:42:00 Test Item Value Reference Range Interpretation Comments Segs-Bands # (test code = Segs-Bands #) 5.3 1.5-8.1 [facility] CenterTmhoqmtFOSIQQBTMD5390-04-07 22:42:00 Test Item Value Reference Range Interpretation Comments Monocytes # (test code 1.0 See_Comment [Aut omated message] The = Monocytes #) system which generated this result tra nsmitted reference range : <=0.8. The reference r nilam was not used to int erpret this result as normal/abnormal . [facility] CenterSzdjyctZIVTFJUHEZ8858-83-67 22:42:00 Test Item Value Reference Range Interpretation Comments Lymphocytes # (test code = Lymphocytes 1.2 1.0-5.5 #) [place] [address]-12-23 22:42:00 Test Item Value Reference Range Interpretation Comments Basophils (test code = 0.2 See_Comment [Aut omated message] The Basophils) system which ge nerated this result tra nsmitted reference range : <=1.0. The reference r nilam was not used to int erpret this result as normal/abnormal . [facility]2016-12-23 22:42:00 Test Item Value Reference Range Interpretation Comments BUN (test code = BUN) 6 7-22 [facility] CenterGladavkLBNARAVETS0941-06-80 22:42:00 Test Item Value Reference Range Interpretation Comments Segs (test code = Segs) 70.2 45.0-75.0 [facility] HospitalVIRAL [id number] 22:42:00 Test Item Value Reference Range Interpretation Comments Influ B (test code = Negative (03/17/16 4:42 Influ B) PM) [facility] ANXGODXZ2115-46-17 22:42:00 Test Item Value Reference Range Interpretation Comments Influ A (test code = Negative (03/17/16 4:42 Influ A) PM) [facility]2016-12-23 22:42:00 Test Item Value Reference Range Interpretation Comments Sodium Lvl (test code = Sodium Lvl) 137 135-145 [facility]2016-12-23 22:42:00 Test Item Value Reference Range Interpretation Comments Creatinine Lvl (test code = Creatinine 0.85 0.50-1.40 Lvl) [facility]2016-12-23 22:42:00 Test Item Value Reference Range Interpretation Comments Bili Total (test code = Bili Total) 0.5 0.2-1.3 [facility]2016-12-23 22:42:00 Test Item Value Reference Range Interpretation Comments Chloride Lvl (test code = Chloride Lvl) 100 95-109 [facility]2016-12-23 22:42:00 Test Item Value Reference Range Interpretation Comments Calcium Lvl (test code = Calcium Lvl) 9.6 8.5-10.5 [facility]2016-12-23 22:42:00 Test Item Value Reference Range Interpretation Comments CO2 (test code = CO2) 29 24-32 [facility]2016-12-23 22:42:00 Test Item Value Reference Range Interpretation Comments ASPARTATE TRANSAMINASE 59 See_Comment [Aut omated message] (test code = ASPARTATE The s ystem which TRANSAMINASE) generated this result transmitted ref erence range: <=37. Th e reference range was not used to interpr et this result as normal/abnormal . [facility] [id number] 22:42:00 Test Item Value Reference Range Interpretation Comments Total Protein (test code = Total 8.5 6.4-8.4 Protein) [facility]2016-12-23 22:42:00 Test Item Value Reference Range Interpretation Comments Glucose Lvl (test code = Glucose Lvl) 106 70-99 [facility] [id number] 22:42:00 Test Item Value Reference Range Interpretation Comments Albumin Lvl (test code = Albumin Lvl) 3.0 3.5-5.0 [facility] [id number] 22:42:00 Test Item Value Reference Range Interpretation Comments Alk Phos (test code = Alk Phos) 83 39-136 [facility] HospitalDwnovlvUTQCZOKPKSHRF3770-93-61 22:42:00 Test Item Value Reference Range Interpretation Comments S Preg (test code = S Negative *NA*(03/17/16 Preg) 4:42 PM) [facility] CenterLkmaxtfFSKFJUPBXC1545-06-12 22:42:00 Test Item Value Reference Range Interpretation Comments MPV (test code = MPV) 8.6 7.4-10.4 [facility] CenterTzbadtkESYZISYUNY0357-85-52 22:42:00 Test Item Value Reference Range Interpretation Comments MCHC (test code = MCHC) 34.3 32.0-36.0 [facility] CenterNmgfvpqFXUBEVLLZM3194-05-52 22:42:00 Test Item Value Reference Range Interpretation Comments Platelet (test code = Platelet) 133 133-450 [facility] CenterDgxyffdZZSZSNZSRC5665-95-39 22:42:00 Test Item Value Reference Range Interpretation Comments RDW (test code = RDW) 16.8 11.5-14.5 [facility] CenterBmkyvsbNBDNMEHXPV4964-19-44 22:42:00 Test Item Value Reference Range Interpretation Comments MCH (test code = MCH) 28.7 pg 27.0-31.0 [facility] CenterIdjjnkeJJQCTTNRDJ4992-59-23 22:42:00 Test Item Value Reference Range Interpretation Comments Hgb (test code = Hgb) 11.7 12.0-16.0 [facility] CenterKhpwznhQOCWOERFDF0138-01-63 22:42:00 Test Item Value Reference Range Interpretation Comments Hct (test code = Hct) 34.1 36.0-48.0 [facility] CenterMvudqgkYMEMNZARDS3954-93-11 22:42:00 Test Item Value Reference Range Interpretation Comments WBC X 10x3 (test code = WBC X 10x3) 7.6 3.7-10.4 [facility] CenterHetkyjvGIOYDWIPSH7753-52-31 22:42:00 Test Item Value Reference Range Interpretation Comments MCV (test code = MCV) 83.6 80.0-98.0 [facility] CenterPcfcncdGTLJMLJNJS5125-45-76 22:42:00 Test Item Value Reference Range Interpretation Comments RBC X 10x6 (test code = RBC X 10x6) 4.08 4.20-5.40 [place] [id number] 22:42:00 Test Item Value Reference Range Interpretation Comments Eosinophils (test code = 0.6 See_Comment [A utomated message] The Eosinophils) system which ge nerated this result tra nsmitted reference range : <=4.0. The reference r nilam was not used to int erpret this result as normal/abnormal . [facility] CenterEikzqjlWTZZTWBVEQ0252-05-19 22:42:00 Test Item Value Reference Range Interpretation Comments Lymphocytes (test code = Lymphocytes) 16.1 20.0-40.0 [facility] CenterEwjfcvsKKMGSZYWHT5840-74-82 22:42:00 Test Item Value Reference Range Interpretation Comments Monocytes (test code = Monocytes) 12.9 2.0-12.0 [facility] CenterYrqslcxWXSBNLZKJT3128-75-96 22:42:00 Test Item Value Reference Range Interpretation Comments Segs-Bands # (test code = Segs-Bands #) 5.3 1.5-8.1 [facility] CenterXmpemgqZTAVXZTPYQ9552-25-52 22:42:00 Test Item Value Reference Range Interpretation Comments Monocytes # (test code 1.0 See_Comment [Aut omated message] The = Monocytes #) system which generated this result tra nsmitted reference range : <=0.8. The reference r nilam was not used to int erpret this result as normal/abnormal . [facility] CenterNxsiszmSXJHHEXIWC3592-78-98 22:42:00 Test Item Value Reference Range Interpretation Comments Lymphocytes # (test code = Lymphocytes 1.2 1.0-5.5 #) [facility] CenterHylzmzsQGEDAQVVUE8705-15-05 22:42:00 Test Item Value Reference Range Interpretation Comments Basophils (test code = 0.2 See_Comment [Aut omated message] The Basophils) system which ge nerated this result tra nsmitted reference range : <=1.0. The reference r nilam was not used to int erpret this result as normal/abnormal . [facility] CenterTtenvabMNNQTWCXLA7231-01-73 22:42:00 Test Item Value Reference Range Interpretation Comments Segs (test code = Segs) 70.2 45.0-75.0 [facility] ZOYRYLKL4831-18-14 22:42:00 Test Item Value Reference Range Interpretation Comments Influ B (test code = Negative (03/17/16 4:42 Influ B) PM) [facility] [id number] 22:42:00 Test Item Value Reference Range Interpretation Comments Influ A (test code = Negative (03/17/16 4:42 Influ A) PM) [facility]2016-12-23 22:42:00 Test Item Value Reference Range Interpretation Comments Lipase Lvl (test code = Lipase Lvl) 193 73-393 [facility]2016-12-23 22:42:00 Test Item Value Reference Range Interpretation Comments A/G Ratio (test code = A/G Ratio) 0.5 0.7-1.6 [facility]2016-12-23 22:42:00 Test Item Value Reference Range Interpretation Comments AGAP (test code = AGAP) 11.4 10.0-20.0 [facility]2016-12-23 22:42:00 Test Item Value Reference Range Interpretation Comments Globulin (test code = Globulin) 5.5 2.7-4.2 [facility]2016-12-23 22:42:00 Test Item Value Reference Range Interpretation Comments B/C Ratio (test code = B/C Ratio) 7 6-25 [facility]2016-12-23 22:42:00 Test Item Value Reference Range Interpretation Comments eGFR (test code = eGFR) 100 [facility]2016-12-23 22:42:00 Test Item Value Reference Range Interpretation Comments ALANINE AMINOTRANSFERASE 65 See_Comment [A utomated message] (test code = ALANINE The sys tem which AMINOTRANSFERASE) generated this result transmitted ref erence range: <=65. Th e reference range was not used to int erpret this result as normal/abnormal . [facility]2016-12-23 22:42:00 Test Item Value Reference Range Interpretation Comments Potassium Lvl (test code = Potassium 3.4 3.5-5.1 Lvl) [facility]2016-12-23 22:42:00 Test Item Value Reference Range Interpretation Comments BUN (test code = BUN) 6 7-22 [facility]2016-12-23 22:42:00 Test Item Value Reference Range Interpretation Comments Sodium Lvl (test code = Sodium Lvl) 137 135-145 [facility]2016-12-23 22:42:00 Test Item Value Reference Range Interpretation Comments Creatinine Lvl (test code = Creatinine 0.85 0.50-1.40 Lvl) [facility]2016-12-23 22:42:00 Test Item Value Reference Range Interpretation Comments Bili Total (test code = Bili Total) 0.5 0.2-1.3 [facility]2016-12-23 22:42:00 Test Item Value Reference Range Interpretation Comments Chloride Lvl (test code = Chloride Lvl) 100 95-109 [facility]2016-12-23 22:42:00 Test Item Value Reference Range Interpretation Comments Calcium Lvl (test code = Calcium Lvl) 9.6 8.5-10.5 [facility]2016-12-23 22:42:00 Test Item Value Reference Range Interpretation Comments CO2 (test code = CO2) 29 24-32 [facility]2016-12-23 22:42:00 Test Item Value Reference Range Interpretation Comments ASPARTATE TRANSAMINASE 59 See_Comment [Aut omated message] (test code = ASPARTATE The s ystem which TRANSAMINASE) generated this result transmitted ref erence range: <=37. Th e reference range was not used to interpr et this result as normal/abnormal . [facility]2016-12-23 22:42:00 Test Item Value Reference Range Interpretation Comments Total Protein (test code = Total 8.5 6.4-8.4 Protein) [facility]2016-12-23 22:42:00 Test Item Value Reference Range Interpretation Comments Glucose Lvl (test code = Glucose Lvl) 106 70-99 [facility]2016-12-23 22:42:00 Test Item Value Reference Range Interpretation Comments Albumin Lvl (test code = Albumin Lvl) 3.0 3.5-5.0 [facility]2016-12-23 22:42:00 Test Item Value Reference Range Interpretation Comments Alk Phos (test code = Alk Phos) 83 39-136 [place] 48145016-12-23 22:42:00 Test Item Value Reference Range Interpretation Comments S Preg (test code = S Negative *NA*(03/17/16 Preg) 4:42 PM) [facility] CenterYjgfrpuDADKQOABWZ0595-19-39 22:42:00 Test Item Value Reference Range Interpretation Comments MPV (test code = MPV) 8.6 7.4-10.4 [facility] CenterZjrkkrhGZKUWEJFWU0315-84-25 22:42:00 Test Item Value Reference Range Interpretation Comments MCHC (test code = MCHC) 34.3 32.0-36.0 [facility] CenterYrgoaodYKLTSXJPJV8910-87-61 22:42:00 Test Item Value Reference Range Interpretation Comments Platelet (test code = Platelet) 133 133-450 [facility] CenterGdenrubPXBTVGVNRN8975-31-98 22:42:00 Test Item Value Reference Range Interpretation Comments RDW (test code = RDW) 16.8 11.5-14.5 [facility] CenterWokrikrEUIXBMDAJQ0040-39-91 22:42:00 Test Item Value Reference Range Interpretation Comments MCH (test code = MCH) 28.7 pg 27.0-31.0 [facility] CenterQppmdxtPYDSMSZSGJ5685-26-27 22:42:00 Test Item Value Reference Range Interpretation Comments Hgb (test code = Hgb) 11.7 12.0-16.0 [facility] CenterLpygagxSUCBXKIJPP6849-91-95 22:42:00 Test Item Value Reference Range Interpretation Comments Hct (test code = Hct) 34.1 36.0-48.0 [place] 434026-12-23 22:42:00 Test Item Value Reference Range Interpretation Comments WBC X 10x3 (test code = WBC X 10x3) 7.6 3.7-10.4 [place] 434026-12-23 22:42:00 Test Item Value Reference Range Interpretation Comments MCV (test code = MCV) 83.6 80.0-98.0 [facility] CenterNopomvtNMSUAEBYIC8601-73-21 22:42:00 Test Item Value Reference Range Interpretation Comments RBC X 10x6 (test code = RBC X 10x6) 4.08 4.20-5.40 [facility] CenterAlncybpDQOGVTTHMQ9131-18-77 22:42:00 Test Item Value Reference Range Interpretation Comments Eosinophils (test code = 0.6 See_Comment [A utomated message] The Eosinophils) system which ge nerated this result tra nsmitted reference range : <=4.0. The reference r nilam was not used to int erpret this result as normal/abnormal . [place] [address]-12-23 22:42:00 Test Item Value Reference Range Interpretation Comments Lymphocytes (test code = Lymphocytes) 16.1 20.0-40.0 [place] 434026-12-23 22:42:00 Test Item Value Reference Range Interpretation Comments Monocytes (test code = Monocytes) 12.9 2.0-12.0 [place] 434026-12-23 22:42:00 Test Item Value Reference Range Interpretation Comments Segs-Bands # (test code = Segs-Bands #) 5.3 1.5-8.1 [place] 434026-12-23 22:42:00 Test Item Value Reference Range Interpretation Comments Monocytes # (test code 1.0 See_Comment [Aut omated message] The = Monocytes #) system which generated this result tra nsmitted reference range : <=0.8. The reference r nilam was not used to int erpret this result as normal/abnormal . [facility] CenterPvvvotjBKTOZMKKQS8755-57-69 22:42:00 Test Item Value Reference Range Interpretation Comments Lymphocytes # (test code = Lymphocytes 1.2 1.0-5.5 #) [facility] CenterMdykxoxROHRHXBFMN9703-57-70 22:42:00 Test Item Value Reference Range Interpretation Comments Basophils (test code = 0.2 See_Comment [Aut omated message] The Basophils) system which ge nerated this result tra nsmitted reference range : <=1.0. The reference r nilam was not used to int erpret this result as normal/abnormal . [place] 434026-12-23 22:42:00 Test Item Value Reference Range Interpretation Comments Segs (test code = Segs) 70.2 45.0-75.0 [facility] CenterannVIRAL - [id number] 22:42:00 Test Item Value Reference Range Interpretation Comments Influ B (test code = Negative (03/17/16 4:42 Influ B) PM) [facility] CenterannVIRAL - [id number] 22:42:00 Test Item Value Reference Range Interpretation Comments Influ A (test code = Negative (03/17/16 4:42 Influ A) PM) [facility] [id number] 11:10:00 Test Item Value Reference Range Interpretation Comments % Satur Fe (test code = % Satur Fe) 6 12-57 [facility] [id number] 11:10:00 Test Item Value Reference Range Interpretation Comments TIBC (test code = TIBC) 478 228-428 [facility] [id number] 11:10:00 Test Item Value Reference Range Interpretation Comments UIBC (test code = UIBC) 448 110-370 [facility] [id number] 11:10:00 Test Item Value Reference Range Interpretation Comments Iron (test code = Iron) 30 30-160 [facility] [id number] 11:10:00 Test Item Value Reference Range Interpretation Comments Ferritin Lvl (test code = Ferritin Lvl) 5 5-204 [facility] HospitalCARAC JVUNNWM0006-08-06 11:10:00 Test Item Value Reference Range Interpretation Comments CK MB (test code = CK MB) 0.7 0.5-3.6 [facility] HospitalCARDIAC [id number] 11:10:00 Test Item Value Reference Range Interpretation Comments Total CK (test code = Total CK) 217 12-191 [facility] HospitalCARDIAC OXAYYXC7948-88-08 11:10:00 Test Item Value Reference Range Interpretation Comments CK MB Index (test 0.3 See_Comment [Automate d message] The code = CK MB Index) system w [facility] generated this result transmit kuldip reference range : <=2.5. The reference range was not used to interpr et this result as abiodun l/abnormal. [facility] HospitalCHEM [id number] 11:10:00 Test Item Value Reference Range Interpretation Comments eGFR (test code = eGFR) 132 [facility] CenterBreeze TechnologyCANNON MEMORIAL HOSPITALRHBVA2054-45-97 11:10:00 Test Item Value Reference Range Interpretation Comments AST (test code = AST) 39 See_Comment [Auto mated message] The system which ge nerated this result transmit kuldip reference range : <=37. The reference range was not used to interpr et this result as abiodun l/abnormal. [facility] CenterEasyProperty [id number] 11:10:00 Test Item Value Reference Range Interpretation Comments Alk Phos (test code = Alk Phos) 91 39-136 [facility] CenterBreeze TechnologyCANNON MEMORIAL HOSPITALTCHUZ2566-89-96 11:10:00 Test Item Value Reference Range Interpretation Comments ALT (test code = ALT) 25 See_Comment [Auto mated message] The system which ge nerated this result transmit kuldip reference range : <=65. The reference range was not used to interpr et this result as abiodun l/abnormal. [facility] CenterBreeze TechnologyCANNON MEMORIAL [id number] 11:10:00 Test Item Value Reference Range Interpretation Comments Bili Total (test code = Bili Total) 0.4 0.2-1.3 [facility] CenterEasyProperty [id number] 11:10:00 Test Item Value Reference Range Interpretation Comments Calcium Lvl (test code = Calcium Lvl) 9.4 8.5-10.5 [facility] CenterEasyProperty [id number] 11:10:00 Test Item Value Reference Range Interpretation Comments B/C Ratio (test code = B/C Ratio) 13 6-25 [facility] CenterEasy[facility] [id number] 11:10:00 Test Item Value Reference Range Interpretation Comments AGAP (test code = AGAP) 15.2 10.0-20.0 [facility] CenterEasyProperty [id number] 11:10:00 Test Item Value Reference Range Interpretation Comments CO2 (test code = CO2) 21 24-32 [facility] CenterEasyProperty [id number] 11:10:00 Test Item Value Reference Range Interpretation Comments A/G Ratio (test code = A/G Ratio) 0.5 0.7-1.6 [facility] CenterBreeze TechnologyCANNON MEMORIAL HOSPITALCTCAE4041-75-73 11:10:00 Test Item Value Reference Range Interpretation Comments Globulin (test code = Globulin) 5.0 2.0-4.0 [facility] CenterEasyProperty [id number] 11:10:00 Test Item Value Reference Range Interpretation Comments Total Protein (test code = Total 7.7 6.4-8.4 Protein) [facility]2016-01-14 11:10:00 Test Item Value Reference Range Interpretation Comments Albumin Lvl (test code = Albumin Lvl) 2.7 3.5-5.0 [facility]2016-01-14 11:10:00 Test Item Value Reference Range Interpretation Comments BUN (test code = BUN) 8 7-22 [facility]2016-01-14 11:10:00 Test Item Value Reference Range Interpretation Comments Glucose Lvl (test code = Glucose Lvl) 86 70-99 [facility]2016-01-14 11:10:00 Test Item Value Reference Range Interpretation Comments Creatinine Lvl (test code = Creatinine 0.60 0.50-1.40 Lvl) [facility]2016-01-14 11:10:00 Test Item Value Reference Range Interpretation Comments Sodium Lvl (test code = Sodium Lvl) 138 135-145 [facility]2016-01-14 11:10:00 Test Item Value Reference Range Interpretation Comments Chloride Lvl (test code = Chloride Lvl) 106 95-109 [facility]2016-01-14 11:10:00 Test Item Value Reference Range Interpretation Comments Potassium Lvl (test code = Potassium 4.2 3.5-5.1 Lvl) [facility] CenterDzhcnomWALSXGXHSE6369-21-03 11:10:00 Test Item Value Reference Range Interpretation Comments Polychrom (test code = Moderate *ABN*(04/08/15 Polychrom) 5:10 AM) [facility] CenterQqyszemRPURUOYZYF3546-98-46 11:10:00 Test Item Value Reference Range Interpretation Comments Microcyte (test code = 2+ *ABN*(04/08/15 Microcyte) 5:10 AM) [facility] CenterCiygnkuIFMZVKNHTP1464-38-99 11:10:00 Test Item Value Reference Range Interpretation Comments Basophils # (test code 0.0 See_Comment [Aut omated message] The = Basophils #) system which generated this result tra nsmitted reference range : <=0.2. The reference r nilam was not used to int erpret this result as normal/abnormal . [facility] CenterKkfbultWVWTRDGELB3467-55-58 11:10:00 Test Item Value Reference Range Interpretation Comments Plt Morph (test code = Normal (04/08/15 5:10 Plt Morph) AM) [facility] CenterUjjmlnaYHRGDETNBX9396-53-59 11:10:00 Test Item Value Reference Range Interpretation Comments Lymphocytes # (test code = Lymphocytes 1.8 1.0-5.5 #) [facility] CenterSjhvhbnZBEXPRVPFU1805-31-15 11:10:00 Test Item Value Reference Range Interpretation Comments Segs-Bands # (test code = Segs-Bands #) 3.0 1.5-8.1 [facility] CenterUzfugarCLITFAKPKF8259-06-08 11:10:00 Test Item Value Reference Range Interpretation Comments Monocytes # (test code 0.4 See_Comment [Aut omated message] The = Monocytes #) system which generated this result tra nsmitted reference range : <=0.8. The reference r nilam was not used to int erpret this result as normal/abnormal . [facility] CenterGzvjlldUDFJWSVRSZ7172-70-14 11:10:00 Test Item Value Reference Range Interpretation Comments Eosinophils # (test code 0.1 See_Comment [A utomated message] The = Eosinophils #) system whic h generated this result tra nsmitted reference range : <=0.5. The reference r nilam was not used to int erpret this result as normal/abnormal . [facility] CenterOemyvjrKYKPVXEFQJ4109-47-47 11:10:00 Test Item Value Reference Range Interpretation Comments Monocytes (test code = Monocytes) 7.0 2.0-12.0 [facility] CenterDziytytDPPZEYFHIG7121-53-99 11:10:00 Test Item Value Reference Range Interpretation Comments Segs (test code = Segs) 56.2 45.0-75.0 [facility] CenterYqacbxwDEDDQVCFOS9848-78-47 11:10:00 Test Item Value Reference Range Interpretation Comments Eosinophils (test code = 2.0 See_Comment [A utomated message] The Eosinophils) system which ge nerated this result tra nsmitted reference range : <=4.0. The reference r nilam was not used to int erpret this result as normal/abnormal . [facility] CenterBgtnscbWWQJVQYMTB9749-72-33 11:10:00 Test Item Value Reference Range Interpretation Comments Lymphocytes (test code = Lymphocytes) 34.2 20.0-40.0 [facility] CenterGvfmvrdDCEVRPMPAY4291-64-97 11:10:00 Test Item Value Reference Range Interpretation Comments Basophils (test code = 0.6 See_Comment [Aut omated message] The Basophils) system which ge nerated this result tra nsmitted reference range : <=1.0. The reference r nilam was not used to int erpret this result as normal/abnormal . [facility] CenterGtczrhoOMYPHYFFAG2205-16-48 11:10:00 Test Item Value Reference Range Interpretation Comments MPV (test code = MPV) 8.3 7.4-10.4 [facility] CenterFttmdxiNWKKORTFZQ0121-04-56 11:10:00 Test Item Value Reference Range Interpretation Comments Platelet (test code = Platelet) 291 133-450 [facility] CenterBqingrlIKZQHPXBEN7580-26-22 11:10:00 Test Item Value Reference Range Interpretation Comments RDW (test code = RDW) 17.7 11.5-14.5 [facility] CenterSdcfoqxAIXMQOEPEV6039-81-55 11:10:00 Test Item Value Reference Range Interpretation Comments MCHC (test code = MCHC) 30.4 32.0-36.0 [facility] CenterMkbquwxFLRUYNBDOP7359-57-08 11:10:00 Test Item Value Reference Range Interpretation Comments MCH (test code = MCH) 21.9 pg 27.0-31.0 [facility] CenterDozpfopEVUMWOTVOD6047-89-00 11:10:00 Test Item Value Reference Range Interpretation Comments RBC (test code = RBC) 3.99 4.20-5.40 [facility] CenterZdlmkedMGPGJJVVRX0682-59-00 11:10:00 Test Item Value Reference Range Interpretation Comments WBC (test code = WBC) 5.4 3.7-10.4 [facility] CenterLpzvuqqULCUVGNOSJ5472-23-02 11:10:00 Test Item Value Reference Range Interpretation Comments MCV (test code = MCV) 72.1 80.0-98.0 [facility] CenterGnkrsshSFILYCZRSM1452-16-91 11:10:00 Test Item Value Reference Range Interpretation Comments Hgb (test code = Hgb) 8.8 12.0-16.0 [facility] CenterDvfelcsGRJXLKGPNO0660-40-06 11:10:00 Test Item Value Reference Range Interpretation Comments Hct (test code = Hct) 28.8 36.0-48.0 [facility] HospitalParfpoqERGKQI7277-27-14 11:10:00 Test Item Value Reference Range Interpretation Comments CHD Risk (test code = CHD Risk) 3.45 3.90-5.80 [facility]EjidxtrGYHIBH6479-04-72 11:10:00 Test Item Value Reference Range Interpretation Comments HDL (test code = HDL) 53 [facility] CenterOsdlfxpZEWMBZ2800-45-04 11:10:00 Test Item Value Reference Range Interpretation Comments LDL (Calculated) (test code = LDL 106 (Calculated)) [facility] CenterJdkdtqyCVXTKG0716-72-72 11:10:00 Test Item Value Reference Range Interpretation Comments Trig (test code = Trig) 121 [facility] CenterUaoiigaNUFOMK5192-59-23 11:10:00 Test Item Value Reference Range Interpretation Comments Chol (test code = Chol) 183 [facility] CenterCwescwmELKITH5012-24-73 11:10:00 Test Item Value Reference Range Interpretation Comments VLDL (test code = VLDL) 24 [facility] [id number] 11:10:00 Test Item Value Reference Range Interpretation Comments % Satur Fe (test code = % Satur Fe) 6 12-57 [facility] FULGJ7861-81-02 11:10:00 Test Item Value Reference Range Interpretation Comments TIBC (test code = TIBC) 478 228-428 [facility] [id number] 11:10:00 Test Item Value Reference Range Interpretation Comments UIBC (test code = UIBC) 448 110-370 [facility] UJXKS4307-56-19 11:10:00 Test Item Value Reference Range Interpretation Comments Iron (test code = Iron) 30 30-160 [facility] [id number] 11:10:00 Test Item Value Reference Range Interpretation Comments Ferritin Lvl (test code = Ferritin Lvl) 5 5-204 [facility] KCNAVEH3741-04-36 11:10:00 Test Item Value Reference Range Interpretation Comments CK MB (test code = CK MB) 0.7 0.5-3.6 [facility] [id number] 11:10:00 Test Item Value Reference Range Interpretation Comments Total CK (test code = Total CK) 217 12-191 [facility] OQYNYYL0286-88-23 11:10:00 Test Item Value Reference Range Interpretation Comments CK MB Index (test 0.3 See_Comment [Automate d message] The code = CK MB Index) system w [facility] generated this result transmit kuldip reference range : <=2.5. The reference range was not used to interpr et this result as abiodun l/abnormal. [facility]2016-01-14 11:10:00 Test Item Value Reference Range Interpretation Comments eGFR (test code = eGFR) 132 [facility]2016-01-14 11:10:00 Test Item Value Reference Range Interpretation Comments AST (test code = AST) 39 See_Comment [Auto mated message] The system which ge nerated this result transmit kuldip reference range : <=37. The reference range was not used to interpr et this result as abiodun l/abnormal. [facility]2016-01-14 11:10:00 Test Item Value Reference Range Interpretation Comments Alk Phos (test code = Alk Phos) 91 39-136 [facility]2016-01-14 11:10:00 Test Item Value Reference Range Interpretation Comments ALT (test code = ALT) 25 See_Comment [Auto mated message] The system which ge nerated this result transmit kuldip reference range : <=65. The reference range was not used to interpr et this result as abiodun l/abnormal. [facility]2016-01-14 11:10:00 Test Item Value Reference Range Interpretation Comments Bili Total (test code = Bili Total) 0.4 0.2-1.3 [facility]2016-01-14 11:10:00 Test Item Value Reference Range Interpretation Comments Calcium Lvl (test code = Calcium Lvl) 9.4 8.5-10.5 [facility] [facility] 11:10:00 Test Item Value Reference Range Interpretation Comments B/C Ratio (test code = B/C Ratio) 13 6-25 [facility]2016-01-14 11:10:00 Test Item Value Reference Range Interpretation Comments AGAP (test code = AGAP) 15.2 10.0-20.0 [facility]2016-01-14 11:10:00 Test Item Value Reference Range Interpretation Comments CO2 (test code = CO2) 21 24-32 [facility]2016-01-14 11:10:00 Test Item Value Reference Range Interpretation Comments A/G Ratio (test code = A/G Ratio) 0.5 0.7-1.6 [facility]2016-01-14 11:10:00 Test Item Value Reference Range Interpretation Comments Globulin (test code = Globulin) 5.0 2.0-4.0 [facility]2016-01-14 11:10:00 Test Item Value Reference Range Interpretation Comments Total Protein (test code = Total 7.7 6.4-8.4 Protein) [facility]2016-01-14 11:10:00 Test Item Value Reference Range Interpretation Comments Albumin Lvl (test code = Albumin Lvl) 2.7 3.5-5.0 [facility]2016-01-14 11:10:00 Test Item Value Reference Range Interpretation Comments BUN (test code = BUN) 8 7-22 [facility]2016-01-14 11:10:00 Test Item Value Reference Range Interpretation Comments Glucose Lvl (test code = Glucose Lvl) 86 70-99 [facility]2016-01-14 11:10:00 Test Item Value Reference Range Interpretation Comments Creatinine Lvl (test code = Creatinine 0.60 0.50-1.40 Lvl) [facility]2016-01-14 11:10:00 Test Item Value Reference Range Interpretation Comments Sodium Lvl (test code = Sodium Lvl) 138 135-145 [facility]2016-01-14 11:10:00 Test Item Value Reference Range Interpretation Comments Chloride Lvl (test code = Chloride Lvl) 106 95-109 [facility]2016-01-14 11:10:00 Test Item Value Reference Range Interpretation Comments Potassium Lvl (test code = Potassium 4.2 3.5-5.1 Lvl) [facility]LukldtbAHYLBHRUSP7814-89-[facility] 11:10:00 Test Item Value Reference Range Interpretation Comments Polychrom (test code = Moderate *ABN*(04/08/15 Polychrom) 5:10 AM) [facility] CenterOowapniIUVVEUVGVE8428-22-74 11:10:00 Test Item Value Reference Range Interpretation Comments Microcyte (test code = 2+ *ABN*(04/08/15 Microcyte) 5:10 AM) [facility] CenterEbzqpvkKNEWQMVNAZ9780-56-70 11:10:00 Test Item Value Reference Range Interpretation Comments Basophils # (test code 0.0 See_Comment [Aut omated message] The = Basophils #) system which generated this result tra nsmitted reference range : <=0.2. The reference r nilam was not used to int erpret this result as normal/abnormal . [facility] CenterPveyhlyLQYVDNXCPV7591-12-41 11:10:00 Test Item Value Reference Range Interpretation Comments Plt Morph (test code = Normal (04/08/15 5:10 Plt Morph) AM) [facility] CenterMantqwpWHYYSBLAMD1482-98-53 11:10:00 Test Item Value Reference Range Interpretation Comments Lymphocytes # (test code = Lymphocytes 1.8 1.0-5.5 #) [facility] CenterKefajzhPEFPSINCYJ0073-70-84 11:10:00 Test Item Value Reference Range Interpretation Comments Segs-Bands # (test code = Segs-Bands #) 3.0 1.5-8.1 [facility] CenterGxfgmqqDFHPJHQIEX4146-03-20 11:10:00 Test Item Value Reference Range Interpretation Comments Monocytes # (test code 0.4 See_Comment [Aut omated message] The = Monocytes #) system which generated this result tra nsmitted reference range : <=0.8. The reference r nilam was not used to int erpret this result as normal/abnormal . [facility] CenterRtuhpubGUUXWAJUQR9366-09-60 11:10:00 Test Item Value Reference Range Interpretation Comments Eosinophils # (test code 0.1 See_Comment [A utomated message] The = Eosinophils #) system whic h generated this result tra nsmitted reference range : <=0.5. The reference r nilam was not used to int erpret this result as normal/abnormal . [facility] CenterTlzonuyQZZTNGTATG6628-95-91 11:10:00 Test Item Value Reference Range Interpretation Comments Monocytes (test code = Monocytes) 7.0 2.0-12.0 [facility] CenterTkyspquSYDWJTRGHD6228-84-99 11:10:00 Test Item Value Reference Range Interpretation Comments Segs (test code = Segs) 56.2 45.0-75.0 [facility] CenterSlfqbayUWYBUIBERC1671-32-20 11:10:00 Test Item Value Reference Range Interpretation Comments Eosinophils (test code = 2.0 See_Comment [A utomated message] The Eosinophils) system which ge nerated this result tra nsmitted reference range : <=4.0. The reference r nilam was not used to int erpret this result as normal/abnormal . [facility] CenterPipfncmYWEKKWCHWP6579-82-68 11:10:00 Test Item Value Reference Range Interpretation Comments Lymphocytes (test code = Lymphocytes) 34.2 20.0-40.0 [facility] CenterQgsndanORHAGFXJIL0149-84-16 11:10:00 Test Item Value Reference Range Interpretation Comments Basophils (test code = 0.6 See_Comment [Aut omated message] The Basophils) system which ge nerated this result tra nsmitted reference range : <=1.0. The reference r nilam was not used to int erpret this result as normal/abnormal . [facility] CenterAhxiuniSHBDUDMFKL1795-37-34 11:10:00 Test Item Value Reference Range Interpretation Comments MPV (test code = MPV) 8.3 7.4-10.4 [facility] CenterGuyjgbrYREEUYQBQN5952-05-53 11:10:00 Test Item Value Reference Range Interpretation Comments Platelet (test code = Platelet) 291 133-450 [facility] CenterJidtbjbHVPGZNRJVJ3469-46-55 11:10:00 Test Item Value Reference Range Interpretation Comments RDW (test code = RDW) 17.7 11.5-14.5 [facility] CenterSwnlofuJYWNYMXIBO8823-90-75 11:10:00 Test Item Value Reference Range Interpretation Comments MCHC (test code = MCHC) 30.4 32.0-36.0 [facility] CenterZbrbjhxDIJGPDNMBH0886-27-25 11:10:00 Test Item Value Reference Range Interpretation Comments MCH (test code = MCH) 21.9 pg 27.0-31.0 [facility] CenterSqsfpktZYNBIRMHJV4428-33-07 11:10:00 Test Item Value Reference Range Interpretation Comments RBC (test code = RBC) 3.99 4.20-5.40 [facility] CenterTyqqhusGHTJPWQMUQ3670-03-15 11:10:00 Test Item Value Reference Range Interpretation Comments WBC (test code = WBC) 5.4 3.7-10.4 [facility] CenterZjmaayhYGPMZELJPT4695-77-19 11:10:00 Test Item Value Reference Range Interpretation Comments MCV (test code = MCV) 72.1 80.0-98.0 [facility] CenterFrlqodtDMGEHBUMDD7443-19-61 11:10:00 Test Item Value Reference Range Interpretation Comments Hgb (test code = Hgb) 8.8 12.0-16.0 [facility] CenterHjzopuuMJBRTUCHYT8687-60-97 11:10:00 Test Item Value Reference Range Interpretation Comments Hct (test code = Hct) 28.8 36.0-48.0 [facility]ArapajyWVBIJE2596-16-32 11:10:00 Test Item Value Reference Range Interpretation Comments CHD Risk (test code = CHD Risk) 3.45 3.90-5.80 [facility] CenterWrjwlwaXXWZZA3939-98-13 11:10:00 Test Item Value Reference Range Interpretation Comments HDL (test code = HDL) 53 [facility] CenterWaejwsnLWEMYF7007-10-56 11:10:00 Test Item Value Reference Range Interpretation Comments LDL (Calculated) (test code = LDL 106 (Calculated)) [facility] CenterZhgmptfOBQFKL4316-61-15 11:10:00 Test Item Value Reference Range Interpretation Comments Trig (test code = Trig) 121 [facility] CenterGfluxbrSAWTMI9086-23-96 11:10:00 Test Item Value Reference Range Interpretation Comments Chol (test code = Chol) 183 [facility] CenterAirsbnjMTUQSF9864-90-47 11:10:00 Test Item Value Reference Range Interpretation Comments VLDL (test code = VLDL) 24 [facility] HMLKQ0151-97-84 11:10:00 Test Item Value Reference Range Interpretation Comments % Satur Fe (test code = % Satur Fe) 6 12-57 [facility] SGFTN8652-57-86 11:10:00 Test Item Value Reference Range Interpretation Comments TIBC (test code = TIBC) 478 228-428 [facility]2016-01-14 11:10:00 Test Item Value Reference Range Interpretation Comments UIBC (test code = UIBC) 448 110-370 [facility] QZQBL6417-04-38 11:10:00 Test Item Value Reference Range Interpretation Comments Iron (test code = Iron) 30 30-160 [facility] XBYRJ2076-42-23 11:10:00 Test Item Value Reference Range Interpretation Comments Ferritin Lvl (test code = Ferritin Lvl) 5 5-204 [facility]CARAC KIAENKX6673-64-52 11:10:00 Test Item Value Reference Range Interpretation Comments CK MB (test code = CK MB) 0.7 0.5-3.6 [facility] ZXXPZTC3540-83-02 11:10:00 Test Item Value Reference Range Interpretation Comments Total CK (test code = Total CK) 217 12-191 [facility] BVTZCPN5813-52-79 11:10:00 Test Item Value Reference Range Interpretation Comments CK MB Index (test 0.3 See_Comment [Automate d message] The code = CK MB Index) system w [employer] generated this result transmit kuldip reference range : <=2.5. The reference range was not used to interpr et this result as abiodun l/abnormal. [facility]2016-01-14 11:10:00 Test Item Value Reference Range Interpretation Comments eGFR (test code = eGFR) 132 [facility]2016-01-14 11:10:00 Test Item Value Reference Range Interpretation Comments AST (test code = AST) 39 See_Comment [Auto mated message] The system which ge nerated this result transmit kuldip reference range : <=37. The reference range was not used to interpr et this result as abiodun l/abnormal. [facility]2016-01-14 11:10:00 Test Item Value Reference Range Interpretation Comments Alk Phos (test code = Alk Phos) 91 39-136 [facility]2016-01-14 11:10:00 Test Item Value Reference Range Interpretation Comments ALT (test code = ALT) 25 See_Comment [Auto mated message] The system which ge nerated this result transmit kuldip reference range : <=65. The reference range was not used to interpr et this result as abiodun l/abnormal. [facility]2016-01-14 11:10:00 Test Item Value Reference Range Interpretation Comments Bili Total (test code = Bili Total) 0.4 0.2-1.3 [facility]2016-01-14 11:10:00 Test Item Value Reference Range Interpretation Comments Calcium Lvl (test code = Calcium Lvl) 9.4 8.5-10.5 [facility]2016-01-14 11:10:00 Test Item Value Reference Range Interpretation Comments B/C Ratio (test code = B/C Ratio) 13 6-25 [facility]2016-01-14 11:10:00 Test Item Value Reference Range Interpretation Comments AGAP (test code = AGAP) 15.2 10.0-20.0 [facility]2016-01-14 11:10:00 Test Item Value Reference Range Interpretation Comments CO2 (test code = CO2) 21 24-32 [facility]2016-01-14 11:10:00 Test Item Value Reference Range Interpretation Comments A/G Ratio (test code = A/G Ratio) 0.5 0.7-1.6 [facility]2016-01-14 11:10:00 Test Item Value Reference Range Interpretation Comments Globulin (test code = Globulin) 5.0 2.0-4.0 [facility]2016-01-14 11:10:00 Test Item Value Reference Range Interpretation Comments Total Protein (test code = Total 7.7 6.4-8.4 Protein) [facility]2016-01-14 11:10:00 Test Item Value Reference Range Interpretation Comments Albumin Lvl (test code = Albumin Lvl) 2.7 3.5-5.0 [facility]2016-01-14 11:10:00 Test Item Value Reference Range Interpretation Comments BUN (test code = BUN) 8 7-22 [facility]2016-01-14 11:10:00 Test Item Value Reference Range Interpretation Comments Glucose Lvl (test code = Glucose Lvl) 86 70-99 [facility]2016-01-14 11:10:00 Test Item Value Reference Range Interpretation Comments Creatinine Lvl (test code = Creatinine 0.60 0.50-1.40 Lvl) [facility]2016-01-14 11:10:00 Test Item Value Reference Range Interpretation Comments Sodium Lvl (test code = Sodium Lvl) 138 135-145 [facility]2016-01-14 11:10:00 Test Item Value Reference Range Interpretation Comments Chloride Lvl (test code = Chloride Lvl) 106 95-109 [facility]2016-01-14 11:10:00 Test Item Value Reference Range Interpretation Comments Potassium Lvl (test code = Potassium 4.2 3.5-5.1 Lvl) [facility] CenterYmgwdvgPFRNCNHFNA7904-04-34 11:10:00 Test Item Value Reference Range Interpretation Comments Polychrom (test code = Moderate *ABN*(04/08/15 Polychrom) 5:10 AM) [facility] CenterMmzoovgQHLTZIRXTI5140-84-35 11:10:00 Test Item Value Reference Range Interpretation Comments Microcyte (test code = 2+ *ABN*(04/08/15 Microcyte) 5:10 AM) [facility] CenterQbhbglxXHJINCFZLY2132-69-43 11:10:00 Test Item Value Reference Range Interpretation Comments Basophils # (test code 0.0 See_Comment [Aut omated message] The = Basophils #) system which generated this result tra nsmitted reference range : <=0.2. The reference r nilam was not used to int erpret this result as normal/abnormal . [facility] CenterHuljjplYMFGXDPPHO5278-48-83 11:10:00 Test Item Value Reference Range Interpretation Comments Plt Morph (test code = Normal (04/08/15 5:10 Plt Morph) AM) [facility] CenterUgjsmloMZYXZJKLIG3211-40-28 11:10:00 Test Item Value Reference Range Interpretation Comments Lymphocytes # (test code = Lymphocytes 1.8 1.0-5.5 #) [facility] CenterSnywfupKIONVIPSZP5781-06-25 11:10:00 Test Item Value Reference Range Interpretation Comments Segs-Bands # (test code = Segs-Bands #) 3.0 1.5-8.1 [facility] CenterXwdffiqKCZUFCWDIA4622-61-93 11:10:00 Test Item Value Reference Range Interpretation Comments Monocytes # (test code 0.4 See_Comment [Aut omated message] The = Monocytes #) system which generated this result tra nsmitted reference range : <=0.8. The reference r nilam was not used to int erpret this result as normal/abnormal . [facility] CenterIiihpqtYFAQRKBCVJ3569-50-76 11:10:00 Test Item Value Reference Range Interpretation Comments Eosinophils # (test code 0.1 See_Comment [A utomated message] The = Eosinophils #) system whic h generated this result tra nsmitted reference range : <=0.5. The reference r nilam was not used to int erpret this result as normal/abnormal . [facility] CenterQmcqbvmZAXTBSVINQ2607-46-94 11:10:00 Test Item Value Reference Range Interpretation Comments Monocytes (test code = Monocytes) 7.0 2.0-12.0 [facility] CenterCbtnqaaYZABVHWBYW4783-95-32 11:10:00 Test Item Value Reference Range Interpretation Comments Segs (test code = Segs) 56.2 45.0-75.0 [facility] CenterRrgmdlgZMLSJOLWLA9224-42-08 11:10:00 Test Item Value Reference Range Interpretation Comments Eosinophils (test code = 2.0 See_Comment [A utomated message] The Eosinophils) system which ge nerated this result tra nsmitted reference range : <=4.0. The reference r nilam was not used to int erpret this result as normal/abnormal . [facility] CenterQyhdtybKAQSFGFXAH5985-44-73 11:10:00 Test Item Value Reference Range Interpretation Comments Lymphocytes (test code = Lymphocytes) 34.2 20.0-40.0 [facility] CenterUeqzrgyKQIFGKOJCE7563-35-02 11:10:00 Test Item Value Reference Range Interpretation Comments Basophils (test code = 0.6 See_Comment [Aut omated message] The Basophils) system which ge nerated this result tra nsmitted reference range : <=1.0. The reference r nilam was not used to int erpret this result as normal/abnormal . [facility] CenterPcbfmmmHKKFPDNONR5638-83-95 11:10:00 Test Item Value Reference Range Interpretation Comments MPV (test code = MPV) 8.3 7.4-10.4 [facility] CenterOjnvicrEECANGCDNB5349-59-11 11:10:00 Test Item Value Reference Range Interpretation Comments Platelet (test code = Platelet) 291 133-450 [facility] CenterOjkzshvTOSMJFXBWZ1220-33-40 11:10:00 Test Item Value Reference Range Interpretation Comments RDW (test code = RDW) 17.7 11.5-14.5 [facility] CenterJosqqlvCPCOPIALMI5637-28-68 11:10:00 Test Item Value Reference Range Interpretation Comments MCHC (test code = MCHC) 30.4 32.0-36.0 [facility] CenterAsqsshmEVZXHVHXYW1248-18-89 11:10:00 Test Item Value Reference Range Interpretation Comments MCH (test code = MCH) 21.9 pg 27.0-31.0 [facility] CenterUmhogkyHDKJNERXAT4484-09-37 11:10:00 Test Item Value Reference Range Interpretation Comments RBC (test code = RBC) 3.99 4.20-5.40 [facility] CenterMtdkmthONXXCEOBUZ7972-66-12 11:10:00 Test Item Value Reference Range Interpretation Comments WBC (test code = WBC) 5.4 3.7-10.4 [facility] CenterHjiuwyoNHPJDDJJMO3870-31-26 11:10:00 Test Item Value Reference Range Interpretation Comments MCV (test code = MCV) 72.1 80.0-98.0 [facility] CenterEetcoboXNETCHJYID6213-16-68 11:10:00 Test Item Value Reference Range Interpretation Comments Hgb (test code = Hgb) 8.8 12.0-16.0 [facility]SpfsqfnXOSLJCIAWB5438-86-83 11:10:00 Test Item Value Reference Range Interpretation Comments Hct (test code = Hct) 28.8 36.0-48.0 [facility] HospitalPgyyiytBVMDGC2250-92-21 11:10:00 Test Item Value Reference Range Interpretation Comments CHD Risk (test code = CHD Risk) 3.45 3.90-5.80 [facility] HospitalIjowsaaYHVNXU2815-16-57 11:10:00 Test Item Value Reference Range Interpretation Comments HDL (test code = HDL) 53 [facility] HospitalUebqtanXHCYTF1254-23-16 11:10:00 Test Item Value Reference Range Interpretation Comments LDL (Calculated) (test code = LDL 106 (Calculated)) [facility] HospitalQawpgxnEKKWFJ9840-98-44 11:10:00 Test Item Value Reference Range Interpretation Comments Trig (test code = Trig) 121 [facility] HospitalOftajufRWBGYG2323-82-86 11:10:00 Test Item Value Reference Range Interpretation Comments Chol (test code = Chol) 183 [facility] HospitalBdxmljaJDRYBA4398-72-14 11:10:00 Test Item Value Reference Range Interpretation Comments VLDL (test code = VLDL) 24 [facility] ETIIJ9440-97-85 11:10:00 Test Item Value Reference Range Interpretation Comments % Satur Fe (test code = % Satur Fe) 6 12-57 [facility] YCXGT0145-59-67 11:10:00 Test Item Value Reference Range Interpretation Comments TIBC (test code = TIBC) 478 228-428 [facility] LYMUX4594-85-25 11:10:00 Test Item Value Reference Range Interpretation Comments UIBC (test code = UIBC) 448 110-370 [facility] WYAYK7606-96-50 11:10:00 Test Item Value Reference Range Interpretation Comments Iron (test code = Iron) 30 30-160 [facility] VNKOF2672-67-26 11:10:00 Test Item Value Reference Range Interpretation Comments Ferritin Lvl (test code = Ferritin Lvl) 5 5-204 [facility] HospitalCARDIAC PCIYCVT4484-39-36 11:10:00 Test Item Value Reference Range Interpretation Comments CK MB (test code = CK MB) 0.7 0.5-3.6 [facility] CenterBreeze TechnologyCARFisgoAC NRFQQZX4541-74-21 11:10:00 Test Item Value Reference Range Interpretation Comments Total CK (test code = Total CK) 217 12-191 [facility] CenterBreeze TechnologyCARFisgoAC OLXJPAS6328-14-01 11:10:00 Test Item Value Reference Range Interpretation Comments CK MB Index (test 0.3 See_Comment [Automate d message] The code = CK MB Index) system w [employer] generated this result transmit kuldip reference range : <=2.5. The reference range was not used to interpr et this result as abiodun l/abnormal. [facility] [employer] JKTVH9334-18-52 11:10:00 Test Item Value Reference Range Interpretation Comments eGFR (test code = eGFR) 132 [facility] [employer] UHVHI6479-74-82 11:10:00 Test Item Value Reference Range Interpretation Comments AST (test code = AST) 39 See_Comment [Auto mated message] The system which ge nerated this result transmit kuldip reference range : <=37. The reference range was not used to interpr et this result as abiodun l/abnormal. [facility] [employer] [id number] 11:10:00 Test Item Value Reference Range Interpretation Comments Alk Phos (test code = Alk Phos) 91 39-136 [facility] [employer] CZNQB8717-97-15 11:10:00 Test Item Value Reference Range Interpretation Comments ALT (test code = ALT) 25 See_Comment [Auto mated message] The system which ge nerated this result transmit kuldip reference range : <=65. The reference range was not used to interpr et this result as abiodun l/abnormal. [facility] [employer] [id number] 11:10:00 Test Item Value Reference Range Interpretation Comments Bili Total (test code = Bili Total) 0.4 0.2-1.3 [facility] [employer] [id number] 11:10:00 Test Item Value Reference Range Interpretation Comments Calcium Lvl (test code = Calcium Lvl) 9.4 8.5-10.5 [facility] [employer] KMUOJ4378-21-73 11:10:00 Test Item Value Reference Range Interpretation Comments B/C Ratio (test code = B/C Ratio) 13 6-25 [facility] [employer] [id number] 11:10:00 Test Item Value Reference Range Interpretation Comments AGAP (test code = AGAP) 15.2 10.0-20.0 [facility]2016-01-14 11:10:00 Test Item Value Reference Range Interpretation Comments CO2 (test code = CO2) 21 24-32 [facility]2016-01-14 11:10:00 Test Item Value Reference Range Interpretation Comments A/G Ratio (test code = A/G Ratio) 0.5 0.7-1.6 [facility]2016-01-14 11:10:00 Test Item Value Reference Range Interpretation Comments Globulin (test code = Globulin) 5.0 2.0-4.0 [facility]2016-01-14 11:10:00 Test Item Value Reference Range Interpretation Comments Total Protein (test code = Total 7.7 6.4-8.4 Protein) [facility]2016-01-14 11:10:00 Test Item Value Reference Range Interpretation Comments Albumin Lvl (test code = Albumin Lvl) 2.7 3.5-5.0 [facility]2016-01-14 11:10:00 Test Item Value Reference Range Interpretation Comments BUN (test code = BUN) 8 7-22 [facility]2016-01-14 11:10:00 Test Item Value Reference Range Interpretation Comments Glucose Lvl (test code = Glucose Lvl) 86 70-99 [facility]2016-01-14 11:10:00 Test Item Value Reference Range Interpretation Comments Creatinine Lvl (test code = Creatinine 0.60 0.50-1.40 Lvl) [facility]2016-01-14 11:10:00 Test Item Value Reference Range Interpretation Comments Sodium Lvl (test code = Sodium Lvl) 138 135-145 [facility]2016-01-14 11:10:00 Test Item Value Reference Range Interpretation Comments Chloride Lvl (test code = Chloride Lvl) 106 95-109 [facility]2016-01-14 11:10:00 Test Item Value Reference Range Interpretation Comments Potassium Lvl (test code = Potassium 4.2 3.5-5.1 Lvl) [facility] HospitalXfmtlfqSOOMVCDLXR6695-32-75 11:10:00 Test Item Value Reference Range Interpretation Comments Polychrom (test code = Moderate *ABN*(04/08/15 Polychrom) 5:10 AM) [facility] CenterKadmkkwXPEJQAXKQB5791-71-41 11:10:00 Test Item Value Reference Range Interpretation Comments Microcyte (test code = 2+ *ABN*(04/08/15 Microcyte) 5:10 AM) [facility] CenterIetweugIRSQCSEXRL9236-49-81 11:10:00 Test Item Value Reference Range Interpretation Comments Basophils # (test code 0.0 See_Comment [Aut omated message] The = Basophils #) system which generated this result tra nsmitted reference range : <=0.2. The reference r nilam was not used to int erpret this result as normal/abnormal . [facility] [facility]oKAHCDOXEAF3460-27-22 11:10:00 Test Item Value Reference Range Interpretation Comments Plt Morph (test code = Normal (04/08/15 5:10 Plt Morph) AM) [facility] CenterPzwbjenSRVQGSWWBE3688-35-96 11:10:00 Test Item Value Reference Range Interpretation Comments Lymphocytes # (test code = Lymphocytes 1.8 1.0-5.5 #) [facility] CenterMffzzuvYAYSFIUZJL5981-98-21 11:10:00 Test Item Value Reference Range Interpretation Comments Segs-Bands # (test code = Segs-Bands #) 3.0 1.5-8.1 [facility] CenterZxhwcnhVJLATNXYCY0159-54-93 11:10:00 Test Item Value Reference Range Interpretation Comments Monocytes # (test code 0.4 See_Comment [Aut omated message] The = Monocytes #) system which generated this result tra nsmitted reference range : <=0.8. The reference r nilam was not used to int erpret this result as normal/abnormal . [facility] CenterCuwbxlnZSSFUGBJEI5426-17-71 11:10:00 Test Item Value Reference Range Interpretation Comments Eosinophils # (test code 0.1 See_Comment [A utomated message] The = Eosinophils #) system whic h generated this result tra nsmitted reference range : <=0.5. The reference r nilam was not used to int erpret this result as normal/abnormal . [facility] CenterRejojhiYLRRYHWJYU6050-23-80 11:10:00 Test Item Value Reference Range Interpretation Comments Monocytes (test code = Monocytes) 7.0 2.0-12.0 [facility] CenterLtcwznyCGDIFWYXBU8784-56-43 11:10:00 Test Item Value Reference Range Interpretation Comments Segs (test code = Segs) 56.2 45.0-75.0 [facility] CenterHavnjtnFMGQWHGRQG0277-85-87 11:10:00 Test Item Value Reference Range Interpretation Comments Eosinophils (test code = 2.0 See_Comment [A utomated message] The Eosinophils) system which ge nerated this result tra nsmitted reference range : <=4.0. The reference r nilam was not used to int erpret this result as normal/abnormal . [facility] CenterUvvnjruCUTPEQUOYR2162-85-54 11:10:00 Test Item Value Reference Range Interpretation Comments Lymphocytes (test code = Lymphocytes) 34.2 20.0-40.0 [facility] CenterQfxcysjEAKUQGHSVT5144-82-55 11:10:00 Test Item Value Reference Range Interpretation Comments Basophils (test code = 0.6 See_Comment [Aut omated message] The Basophils) system which ge nerated this result tra nsmitted reference range : <=1.0. The reference r nilam was not used to int erpret this result as normal/abnormal . [facility] CenterUyctxunUPNWOHNLTI7933-78-15 11:10:00 Test Item Value Reference Range Interpretation Comments MPV (test code = MPV) 8.3 7.4-10.4 [facility] CenterRajkoynYJJNRQJDVU7205-42-81 11:10:00 Test Item Value Reference Range Interpretation Comments Platelet (test code = Platelet) 291 133-450 [facility] CenterIpsxacoAVOVDUPYDR1903-14-78 11:10:00 Test Item Value Reference Range Interpretation Comments RDW (test code = RDW) 17.7 11.5-14.5 [facility] CenterZacocgdRKHALQJGLR0278-18-32 11:10:00 Test Item Value Reference Range Interpretation Comments MCHC (test code = MCHC) 30.4 32.0-36.0 [facility] CenterHaskvhuMCMUDDHOOX4118-04-29 11:10:00 Test Item Value Reference Range Interpretation Comments MCH (test code = MCH) 21.9 pg 27.0-31.0 [facility] CenterFzkcjzcWRMGXMXRTD9734-39-00 11:10:00 Test Item Value Reference Range Interpretation Comments RBC (test code = RBC) 3.99 4.20-5.40 [facility] CenterJmtbvggEOVTTHWNDB4488-15-60 11:10:00 Test Item Value Reference Range Interpretation Comments WBC (test code = WBC) 5.4 3.7-10.4 [facility] CenterRphqdvbQFRLNOBWRQ3817-34-10 11:10:00 Test Item Value Reference Range Interpretation Comments MCV (test code = MCV) 72.1 80.0-98.0 [facility] CenterJfvztpiKSQLLTCIAG3670-62-29 11:10:00 Test Item Value Reference Range Interpretation Comments Hgb (test code = Hgb) 8.8 12.0-16.0 [facility] CenterBdfoqntSUXGPUAWJL1947-07-87 11:10:00 Test Item Value Reference Range Interpretation Comments Hct (test code = Hct) 28.8 36.0-48.0 [facility]MaojcapZVULJA5344-79-21 11:10:00 Test Item Value Reference Range Interpretation Comments CHD Risk (test code = CHD Risk) 3.45 3.90-5.80 [facility] CenterRgerbidPEWSKR1312-40-69 11:10:00 Test Item Value Reference Range Interpretation Comments HDL (test code = HDL) 53 [facility] CenterZdtuuewVTXRVS2847-45-13 11:10:00 Test Item Value Reference Range Interpretation Comments LDL (Calculated) (test code = LDL 106 (Calculated)) [facility] CenterMqesmdjDCZCKD2868-24-17 11:10:00 Test Item Value Reference Range Interpretation Comments Trig (test code = Trig) 121 [facility] CenterXamtlkoFRPOGA2556-61-82 11:10:00 Test Item Value Reference Range Interpretation Comments Chol (test code = Chol) 183 [facility] CenterFzapvrbJAUSWC5954-99-68 11:10:00 Test Item Value Reference Range Interpretation Comments VLDL (test code = VLDL) 24 [facility]2016-01-14 11:10:00 Test Item Value Reference Range Interpretation Comments % Satur Fe (test code = % Satur Fe) 6 12-57 [facility]2016-01-14 11:10:00 Test Item Value Reference Range Interpretation Comments TIBC (test code = TIBC) 478 228-428 [facility]2016-01-14 11:10:00 Test Item Value Reference Range Interpretation Comments UIBC (test code = UIBC) 448 110-370 [facility]2016-01-14 11:10:00 Test Item Value Reference Range Interpretation Comments Iron (test code = Iron) 30 30-160 [facility]2016-01-14 11:10:00 Test Item Value Reference Range Interpretation Comments Ferritin Lvl (test code = Ferritin Lvl) 5 5-204 [facility] CenterSafeTacMagAC JSWQXDX7157-53-72 11:10:00 Test Item Value Reference Range Interpretation Comments CK MB (test code = CK MB) 0.7 0.5-3.6 [facility] CenterSafeTacMag UPIUVET8951-34-54 11:10:00 Test Item Value Reference Range Interpretation Comments Total CK (test code = Total CK) 217 12-191 [facility] CenterSafeTacMag NGZXGYW0888-63-28 11:10:00 Test Item Value Reference Range Interpretation Comments CK MB Index (test 0.3 See_Comment [Automate d message] The code = CK MB Index) system w [employer] generated this result transmit kuldip reference range : <=2.5. The reference range was not used to interpr et this result as abiodun l/abnormal. [facility] [employer]2016-01-14 11:10:00 Test Item Value Reference Range Interpretation Comments eGFR (test code = eGFR) 132 [facility] [employer] UQPPV5720-76-32 11:10:00 Test Item Value Reference Range Interpretation Comments AST (test code = AST) 39 See_Comment [Auto mated message] The system which ge nerated this result transmit kuldip reference range : <=37. The reference range was not used to interpr et this result as abiodun l/abnormal. [facility] [employer]2016-01-14 11:10:00 Test Item Value Reference Range Interpretation Comments Alk Phos (test code = Alk Phos) 91 39-136 [facility] [employer] KSYED5904-92-59 11:10:00 Test Item Value Reference Range Interpretation Comments ALT (test code = ALT) 25 See_Comment [Auto mated message] The system which ge nerated this result transmit kuldip reference range : <=65. The reference range was not used to interpr et this result as abiodun l/abnormal. [facility] [employer]2016-01-14 11:10:00 Test Item Value Reference Range Interpretation Comments Bili Total (test code = Bili Total) 0.4 0.2-1.3 [facility] [employer]2016-01-14 11:10:00 Test Item Value Reference Range Interpretation Comments Calcium Lvl (test code = Calcium Lvl) 9.4 8.5-10.5 [facility]2016-01-14 11:10:00 Test Item Value Reference Range Interpretation Comments B/C Ratio (test code = B/C Ratio) 13 6-25 [facility]2016-01-14 11:10:00 Test Item Value Reference Range Interpretation Comments AGAP (test code = AGAP) 15.2 10.0-20.0 [facility]2016-01-14 11:10:00 Test Item Value Reference Range Interpretation Comments CO2 (test code = CO2) 21 24-32 [facility]2016-01-14 11:10:00 Test Item Value Reference Range Interpretation Comments A/G Ratio (test code = A/G Ratio) 0.5 0.7-1.6 [facility]2016-01-14 11:10:00 Test Item Value Reference Range Interpretation Comments Globulin (test code = Globulin) 5.0 2.0-4.0 [facility]2016-01-14 11:10:00 Test Item Value Reference Range Interpretation Comments Total Protein (test code = Total 7.7 6.4-8.4 Protein) [facility]2016-01-14 11:10:00 Test Item Value Reference Range Interpretation Comments Albumin Lvl (test code = Albumin Lvl) 2.7 3.5-5.0 [facility]2016-01-14 11:10:00 Test Item Value Reference Range Interpretation Comments BUN (test code = BUN) 8 - [facility]2016-01-14 11:10:00 Test Item Value Reference Range Interpretation Comments Glucose Lvl (test code = Glucose Lvl) 86 70-99 [facility]2016-01-14 11:10:00 Test Item Value Reference Range Interpretation Comments Creatinine Lvl (test code = Creatinine 0.60 0.50-1.40 Lvl) [facility]2016-01-14 11:10:00 Test Item Value Reference Range Interpretation Comments Sodium Lvl (test code = Sodium Lvl) 138 135-145 [facility]2016-01-14 11:10:00 Test Item Value Reference Range Interpretation Comments Chloride Lvl (test code = Chloride Lvl) 106 95-109 [facility]2016-01-14 11:10:00 Test Item Value Reference Range Interpretation Comments Potassium Lvl (test code = Potassium 4.2 3.5-5.1 Lvl) [facility] CenterKeqadzfWVIYAYFXTS7597-45-20 11:10:00 Test Item Value Reference Range Interpretation Comments Polychrom (test code = Moderate *ABN*(04/08/15 Polychrom) 5:10 AM) [facility] CenterBxbmjsaFKXZMRKBIB9407-20-53 11:10:00 Test Item Value Reference Range Interpretation Comments Microcyte (test code = 2+ *ABN*(04/08/15 Microcyte) 5:10 AM) [facility] CenterEygwgfhURYRJUJXZF8381-80-43 11:10:00 Test Item Value Reference Range Interpretation Comments Basophils # (test code 0.0 See_Comment [Aut omated message] The = Basophils #) system which generated this result tra nsmitted reference range : <=0.2. The reference r nilam was not used to int erpret this result as normal/abnormal . [facility] CenterXesdtczTMAVVRFWMR6540-54-31 11:10:00 Test Item Value Reference Range Interpretation Comments Plt Morph (test code = Normal (04/08/15 5:10 Plt Morph) AM) [facility] CenterTqoaengKYQNBGYLQL2302-55-92 11:10:00 Test Item Value Reference Range Interpretation Comments Lymphocytes # (test code = Lymphocytes 1.8 1.0-5.5 #) [facility] CenterBtdmvyoEPPWAMLZPC2677-93-31 11:10:00 Test Item Value Reference Range Interpretation Comments Segs-Bands # (test code = Segs-Bands #) 3.0 1.5-8.1 [facility] CenterPeeatoyOGXXYFMQKP6465-87-41 11:10:00 Test Item Value Reference Range Interpretation Comments Monocytes # (test code 0.4 See_Comment [Aut omated message] The = Monocytes #) system which generated this result tra nsmitted reference range : <=0.8. The reference r nilam was not used to int erpret this result as normal/abnormal . [facility] CenterXaepipsNIKHQFOGXJ7938-95-86 11:10:00 Test Item Value Reference Range Interpretation Comments Eosinophils # (test code 0.1 See_Comment [A utomated message] The = Eosinophils #) system whic h generated this result tra nsmitted reference range : <=0.5. The reference r nilam was not used to int erpret this result as normal/abnormal . [facility] CenterAtwgzbeKGEUNKCYJG3693-61-66 11:10:00 Test Item Value Reference Range Interpretation Comments Monocytes (test code = Monocytes) 7.0 2.0-12.0 [facility] CenterCrtzapwEGKQNTMOWK1053-47-69 11:10:00 Test Item Value Reference Range Interpretation Comments Segs (test code = Segs) 56.2 45.0-75.0 [facility] CenterSfppzlhKLCHKDJKWD5510-03-87 11:10:00 Test Item Value Reference Range Interpretation Comments Eosinophils (test code = 2.0 See_Comment [A utomated message] The Eosinophils) system which ge nerated this result tra nsmitted reference range : <=4.0. The reference r nilam was not used to int erpret this result as normal/abnormal . [facility] CenterYcpswjoDNKNGKXDTL6154-60-68 11:10:00 Test Item Value Reference Range Interpretation Comments Lymphocytes (test code = Lymphocytes) 34.2 20.0-40.0 [facility] CenterTswipegZROAIPJDRW3100-87-17 11:10:00 Test Item Value Reference Range Interpretation Comments Basophils (test code = 0.6 See_Comment [Aut omated message] The Basophils) system which ge nerated this result tra nsmitted reference range : <=1.0. The reference r nilam was not used to int erpret this result as normal/abnormal . [facility] CenterQxahuffJXPEMPJBMY2454-54-33 11:10:00 Test Item Value Reference Range Interpretation Comments MPV (test code = MPV) 8.3 7.4-10.4 [facility] CenterIwdlidiRCMGXYHDUT0745-06-97 11:10:00 Test Item Value Reference Range Interpretation Comments Platelet (test code = Platelet) 291 133-450 [facility] CenterWdcolqjPPFWJUJQJF1733-77-86 11:10:00 Test Item Value Reference Range Interpretation Comments RDW (test code = RDW) 17.7 11.5-14.5 [facility] CenterDmvzmncFANVWUBKJN9874-64-21 11:10:00 Test Item Value Reference Range Interpretation Comments MCHC (test code = MCHC) 30.4 32.0-36.0 [facility] CenterYbyosaoHOGAVIQSKH4896-64-74 11:10:00 Test Item Value Reference Range Interpretation Comments MCH (test code = MCH) 21.9 pg 27.0-31.0 [facility] CenterAitbuxrCIXDCBMOMQ8033-88-53 11:10:00 Test Item Value Reference Range Interpretation Comments RBC (test code = RBC) 3.99 4.20-5.40 [facility] CenterCvdkxkpBRBCLDQRXP0539-55-65 11:10:00 Test Item Value Reference Range Interpretation Comments WBC (test code = WBC) 5.4 3.7-10.4 [facility] CenterDxqvltqGKIFYWOFMH0325-35-30 11:10:00 Test Item Value Reference Range Interpretation Comments MCV (test code = MCV) 72.1 80.0-98.0 [facility] CenterMrxzgkgWACCQJXFAQ2305-30-97 11:10:00 Test Item Value Reference Range Interpretation Comments Hgb (test code = Hgb) 8.8 12.0-16.0 [facility] CenterCdlugytYJYCDXORPP3482-78-08 11:10:00 Test Item Value Reference Range Interpretation Comments Hct (test code = Hct) 28.8 36.0-48.0 [facility] CenterWtbjtigJTQUVT2425-23-66 11:10:00 Test Item Value Reference Range Interpretation Comments CHD Risk (test code = CHD Risk) 3.45 3.90-5.80 [facility] CenterLmnlyazINACDS9855-14-05 11:10:00 Test Item Value Reference Range Interpretation Comments HDL (test code = HDL) 53 [facility] CenterOidxtwnUJDGST6345-25-69 11:10:00 Test Item Value Reference Range Interpretation Comments LDL (Calculated) (test code = LDL 106 (Calculated)) [facility] CenterQdzhnytELDMSQ1892-76-48 11:10:00 Test Item Value Reference Range Interpretation Comments Trig (test code = Trig) 121 [facility] CenterZfifdluWWAFKX8891-10-61 11:10:00 Test Item Value Reference Range Interpretation Comments Chol (test code = Chol) 183 [facility] CenterMhkurrlCMHGGS9771-40-90 11:10:00 Test Item Value Reference Range Interpretation Comments VLDL (test code = VLDL) 24 [facility]2016-01-14 11:10:00 Test Item Value Reference Range Interpretation Comments % Satur Fe (test code = % Satur Fe) 6 12-57 [facility]2016-01-14 11:10:00 Test Item Value Reference Range Interpretation Comments TIBC (test code = TIBC) 476 568-086 [facility]2016-01-14 11:10:00 Test Item Value Reference Range Interpretation Comments UIBC (test code = UIBC) 448 110-370 [facility]2016-01-14 11:10:00 Test Item Value Reference Range Interpretation Comments Iron (test code = Iron) 30 30-160 [facility]2016-01-14 11:10:00 Test Item Value Reference Range Interpretation Comments Ferritin Lvl (test code = Ferritin Lvl) 5 5-204 [facility]2016-01-14 11:10:00 Test Item Value Reference Range Interpretation Comments CK MB (test code = CK MB) 0.7 0.5-3.6 [facility]2016-01-14 11:10:00 Test Item Value Reference Range Interpretation Comments Total CK (test code = Total CK) 217 12-191 [facility]2016-01-14 11:10:00 Test Item Value Reference Range Interpretation Comments CK MB Index (test 0.3 See_Comment [Automate d message] The code = CK MB Index) system w [employer] generated this result transmit kuldip reference range : <=2.5. The reference range was not used to interpr et this result as abiodun l/abnormal. [facility]Easy[facility] QLOXG1531-89-71 11:10:00 Test Item Value Reference Range Interpretation Comments eGFR (test code = eGFR) 132 [facility] TEDVG8419-50-54 11:10:00 Test Item Value Reference Range Interpretation Comments AST (test code = AST) 39 See_Comment [Auto mated message] The system which ge nerated this result transmit kuldip reference range : <=37. The reference range was not used to interpr et this result as abiodun l/abnormal. [facility]Easy[facility] QMBWL3533-45-67 11:10:00 Test Item Value Reference Range Interpretation Comments Alk Phos (test code = Alk Phos) 91 39-136 [facility] NBBKX9783-35-64 11:10:00 Test Item Value Reference Range Interpretation Comments ALT (test code = ALT) 25 See_Comment [Auto mated message] The system which ge nerated this result transmit kuldip reference range : <=65. The reference range was not used to interpr et this result as abiodun l/abnormal. [facility] [id number] 11:10:00 Test Item Value Reference Range Interpretation Comments Bili Total (test code = Bili Total) 0.4 0.2-1.3 [facility]2016-01-14 11:10:00 Test Item Value Reference Range Interpretation Comments Calcium Lvl (test code = Calcium Lvl) 9.4 8.5-10.5 [facility]2016-01-14 11:10:00 Test Item Value Reference Range Interpretation Comments B/C Ratio (test code = B/C Ratio) 13 6-25 [facility]2016-01-14 11:10:00 Test Item Value Reference Range Interpretation Comments AGAP (test code = AGAP) 15.2 10.0-20.0 [facility]2016-01-14 11:10:00 Test Item Value Reference Range Interpretation Comments CO2 (test code = CO2) 21 24-32 [facility]2016-01-14 11:10:00 Test Item Value Reference Range Interpretation Comments A/G Ratio (test code = A/G Ratio) 0.5 0.7-1.6 [facility]2016-01-14 11:10:00 Test Item Value Reference Range Interpretation Comments Globulin (test code = Globulin) 5.0 2.0-4.0 [facility]2016-01-14 11:10:00 Test Item Value Reference Range Interpretation Comments Total Protein (test code = Total 7.7 6.4-8.4 Protein) [facility]2016-01-14 11:10:00 Test Item Value Reference Range Interpretation Comments Albumin Lvl (test code = Albumin Lvl) 2.7 3.5-5.0 [facility]2016-01-14 11:10:00 Test Item Value Reference Range Interpretation Comments BUN (test code = BUN) 8 - [facility]2016-01-14 11:10:00 Test Item Value Reference Range Interpretation Comments Glucose Lvl (test code = Glucose Lvl) 86 70-99 [facility]2016-01-14 11:10:00 Test Item Value Reference Range Interpretation Comments Creatinine Lvl (test code = Creatinine 0.60 0.50-1.40 Lvl) [facility]2016-01-14 11:10:00 Test Item Value Reference Range Interpretation Comments Sodium Lvl (test code = Sodium Lvl) 138 135-145 [facility]2016-01-14 11:10:00 Test Item Value Reference Range Interpretation Comments Chloride Lvl (test code = Chloride Lvl) 106 95-109 [facility]2016-01-14 11:10:00 Test Item Value Reference Range Interpretation Comments Potassium Lvl (test code = Potassium 4.2 3.5-5.1 Lvl) [facility] CenterSbiravmGVYSPFNJZI8802-87-06 11:10:00 Test Item Value Reference Range Interpretation Comments Polychrom (test code = Moderate *ABN*(04/08/15 Polychrom) 5:10 AM) [facility] CenterTixiyetASLRKYITAJ0975-45-74 11:10:00 Test Item Value Reference Range Interpretation Comments Microcyte (test code = 2+ *ABN*(04/08/15 Microcyte) 5:10 AM) [facility] CenterZidqzftYGDOBODFUP8820-85-50 11:10:00 Test Item Value Reference Range Interpretation Comments Basophils # (test code 0.0 See_Comment [Aut omated message] The = Basophils #) system which generated this result tra nsmitted reference range : <=0.2. The reference r nilam was not used to int erpret this result as normal/abnormal . [facility] CenterZwmntdtOPDEOMTGCC4524-57-27 11:10:00 Test Item Value Reference Range Interpretation Comments Plt Morph (test code = Normal (04/08/15 5:10 Plt Morph) AM) [facility] CenterFxwzcalBDBVDAHNIZ9631-20-00 11:10:00 Test Item Value Reference Range Interpretation Comments Lymphocytes # (test code = Lymphocytes 1.8 1.0-5.5 #) [facility] CenterQakmajfHYGWRXASJJ7507-53-37 11:10:00 Test Item Value Reference Range Interpretation Comments Segs-Bands # (test code = Segs-Bands #) 3.0 1.5-8.1 [facility] CenterTubsikbFHYJKTFNKZ0220-43-41 11:10:00 Test Item Value Reference Range Interpretation Comments Monocytes # (test code 0.4 See_Comment [Aut omated message] The = Monocytes #) system which generated this result tra nsmitted reference range : <=0.8. The reference r nilam was not used to int erpret this result as normal/abnormal . [facility] CenterSlyrazhXOMTLXETCD6247-98-08 11:10:00 Test Item Value Reference Range Interpretation Comments Eosinophils # (test code 0.1 See_Comment [A utomated message] The = Eosinophils #) system whic h generated this result tra nsmitted reference range : <=0.5. The reference r nilam was not used to int erpret this result as normal/abnormal . [facility] CenterLdntdcbPWLGANOTCJ3234-31-80 11:10:00 Test Item Value Reference Range Interpretation Comments Monocytes (test code = Monocytes) 7.0 2.0-12.0 [facility] CenterStjuuvhFHSRSOELUI0098-75-38 11:10:00 Test Item Value Reference Range Interpretation Comments Segs (test code = Segs) 56.2 45.0-75.0 [facility] CenterKslusqcJLYTGUDNQQ3555-72-20 11:10:00 Test Item Value Reference Range Interpretation Comments Eosinophils (test code = 2.0 See_Comment [A utomated message] The Eosinophils) system which ge nerated this result tra nsmitted reference range : <=4.0. The reference r nilam was not used to int erpret this result as normal/abnormal . [facility] CenterJcuodpdFDBUBSOIZN9989-91-25 11:10:00 Test Item Value Reference Range Interpretation Comments Lymphocytes (test code = Lymphocytes) 34.2 20.0-40.0 [facility] CenterLokyescDFLCPZEEDV4549-60-37 11:10:00 Test Item Value Reference Range Interpretation Comments Basophils (test code = 0.6 See_Comment [Aut omated message] The Basophils) system which ge nerated this result tra nsmitted reference range : <=1.0. The reference r nilam was not used to int erpret this result as normal/abnormal . [facility] CenterXgqmbyuMWNWXJFQHT4265-83-66 11:10:00 Test Item Value Reference Range Interpretation Comments MPV (test code = MPV) 8.3 7.4-10.4 [facility] CenterYbnxmhtTCFXNGSMMU7688-44-95 11:10:00 Test Item Value Reference Range Interpretation Comments Platelet (test code = Platelet) 291 133-450 [facility] CenterCnpfrhiTBWUCSABOS1158-59-48 11:10:00 Test Item Value Reference Range Interpretation Comments RDW (test code = RDW) 17.7 11.5-14.5 [facility]DzlqafjVLSKAEUYWK8062-13-35 11:10:00 Test Item Value Reference Range Interpretation Comments MCHC (test code = MCHC) 30.4 32.0-36.0 [facility] CenterXyzvzwqYTFIGXAACT8849-13-34 11:10:00 Test Item Value Reference Range Interpretation Comments MCH (test code = MCH) 21.9 pg 27.0-31.0 [facility] CenterKqvqoqdFCPQJXAKDW2377-52-27 11:10:00 Test Item Value Reference Range Interpretation Comments RBC (test code = RBC) 3.99 4.20-5.40 [facility] CenterDgzlgmoVFPJURVQVA9036-29-67 11:10:00 Test Item Value Reference Range Interpretation Comments WBC (test code = WBC) 5.4 3.7-10.4 [facility] CenterUmvceneXNIAMDWTIF6832-02-73 11:10:00 Test Item Value Reference Range Interpretation Comments MCV (test code = MCV) 72.1 80.0-98.0 [facility] CenterSfhdhanIMJDGBYHOW9753-43-37 11:10:00 Test Item Value Reference Range Interpretation Comments Hgb (test code = Hgb) 8.8 12.0-16.0 [facility] CenterNdkhhzsHQFYGFESWQ4545-91-87 11:10:00 Test Item Value Reference Range Interpretation Comments Hct (test code = Hct) 28.8 36.0-48.0 [facility]MirwqfwKCHNTF9184-39-93 11:10:00 Test Item Value Reference Range Interpretation Comments CHD Risk (test code = CHD Risk) 3.45 3.90-5.80 [facility] CenterYabsuihVQWJYQ8430-22-60 11:10:00 Test Item Value Reference Range Interpretation Comments HDL (test code = HDL) 53 [facility] CenterQagybxqDBHMKB2539-64-54 11:10:00 Test Item Value Reference Range Interpretation Comments LDL (Calculated) (test code = LDL 106 (Calculated)) [facility] CenterKhzqgwdLUUKZM7744-89-10 11:10:00 Test Item Value Reference Range Interpretation Comments Trig (test code = Trig) 121 [facility] CenterJcmhcsmJDEILN9504-32-69 11:10:00 Test Item Value Reference Range Interpretation Comments Chol (test code = Chol) 183 [facility] CenterWovsxyjIGIUVT8760-11-15 11:10:00 Test Item Value Reference Range Interpretation Comments VLDL (test code = VLDL) 24 [facility]2016-01-14 11:10:00 Test Item Value Reference Range Interpretation Comments % Satur Fe (test code = % Satur Fe) 6 12-57 [facility]2016-01-14 11:10:00 Test Item Value Reference Range Interpretation Comments TIBC (test code = TIBC) 478 228-428 [facility]2016-01-14 11:10:00 Test Item Value Reference Range Interpretation Comments UIBC (test code = UIBC) 448 110-370 [facility]2016-01-14 11:10:00 Test Item Value Reference Range Interpretation Comments Iron (test code = Iron) 30 30-160 [facility]2016-01-14 11:10:00 Test Item Value Reference Range Interpretation Comments Ferritin Lvl (test code = Ferritin Lvl) 5 5-204 [facility]2016-01-14 11:10:00 Test Item Value Reference Range Interpretation Comments CK MB (test code = CK MB) 0.7 0.5-3.6 [facility]2016-01-14 11:10:00 Test Item Value Reference Range Interpretation Comments Total CK (test code = Total CK) 217 12-191 [facility]2016-01-14 11:10:00 Test Item Value Reference Range Interpretation Comments CK MB Index (test 0.3 See_Comment [Automate d message] The code = CK MB Index) system w [employer] generated this result transmit kuldip reference range : <=2.5. The reference range was not used to interpr et this result as abiodun l/abnormal. [facility]2016-01-14 11:10:00 Test Item Value Reference Range Interpretation Comments eGFR (test code = eGFR) 132 [facility] [id number] 11:10:00 Test Item Value Reference Range Interpretation Comments AST (test code = AST) 39 See_Comment [Auto mated message] The system which ge nerated this result transmit kuldip reference range : <=37. The reference range was not used to interpr et this result as abiodun l/abnormal. [facility] [id number] 11:10:00 Test Item Value Reference Range Interpretation Comments Alk Phos (test code = Alk Phos) 91 39-136 [facility]2016-01-14 11:10:00 Test Item Value Reference Range Interpretation Comments ALT (test code = ALT) 25 See_Comment [Auto mated message] The system which ge nerated this result transmit kuldip reference range : <=65. The reference range was not used to interpr et this result as abiodun l/abnormal. [facility]2016-01-14 11:10:00 Test Item Value Reference Range Interpretation Comments Bili Total (test code = Bili Total) 0.4 0.2-1.3 [facility]2016-01-14 11:10:00 Test Item Value Reference Range Interpretation Comments Calcium Lvl (test code = Calcium Lvl) 9.4 8.5-10.5 [facility]2016-01-14 11:10:00 Test Item Value Reference Range Interpretation Comments B/C Ratio (test code = B/C Ratio) 13 - [facility]2016-01-14 11:10:00 Test Item Value Reference Range Interpretation Comments AGAP (test code = AGAP) 15.2 10.0-20.0 [facility]2016-01-14 11:10:00 Test Item Value Reference Range Interpretation Comments CO2 (test code = CO2) 21 - [facility]2016-01-14 11:10:00 Test Item Value Reference Range Interpretation Comments A/G Ratio (test code = A/G Ratio) 0.5 0.7-1.6 [facility]2016-01-14 11:10:00 Test Item Value Reference Range Interpretation Comments Globulin (test code = Globulin) 5.0 2.0-4.0 [facility]2016-01-14 11:10:00 Test Item Value Reference Range Interpretation Comments Total Protein (test code = Total 7.7 6.4-8.4 Protein) [facility]2016-01-14 11:10:00 Test Item Value Reference Range Interpretation Comments Albumin Lvl (test code = Albumin Lvl) 2.7 3.5-5.0 [facility]2016-01-14 11:10:00 Test Item Value Reference Range Interpretation Comments BUN (test code = BUN) 8 - [facility]2016-01-14 11:10:00 Test Item Value Reference Range Interpretation Comments Glucose Lvl (test code = Glucose Lvl) 86 70-99 [facility]2016-01-14 11:10:00 Test Item Value Reference Range Interpretation Comments Creatinine Lvl (test code = Creatinine 0.60 0.50-1.40 Lvl) [facility]2016-01-14 11:10:00 Test Item Value Reference Range Interpretation Comments Sodium Lvl (test code = Sodium Lvl) 138 135-145 [facility]2016-01-14 11:10:00 Test Item Value Reference Range Interpretation Comments Chloride Lvl (test code = Chloride Lvl) 106 95-109 [facility]2016-01-14 11:10:00 Test Item Value Reference Range Interpretation Comments Potassium Lvl (test code = Potassium 4.2 3.5-5.1 Lvl) [facility] CenterQwblmhaOOUWAYJWVZ1294-75-34 11:10:00 Test Item Value Reference Range Interpretation Comments Polychrom (test code = Moderate *ABN*(04/08/15 Polychrom) 5:10 AM) [facility] CenterGgbnahfADZSUZUIHS7482-62-68 11:10:00 Test Item Value Reference Range Interpretation Comments Microcyte (test code = 2+ *ABN*(04/08/15 Microcyte) 5:10 AM) [facility] CenterOymzpwtMFIYMPYJWU1786-66-70 11:10:00 Test Item Value Reference Range Interpretation Comments Basophils # (test code 0.0 See_Comment [Aut omated message] The = Basophils #) system which generated this result tra nsmitted reference range : <=0.2. The reference r nilam was not used to int erpret this result as normal/abnormal . [facility] CenterIyrthekLPLLVVHAOQ9270-69-73 11:10:00 Test Item Value Reference Range Interpretation Comments Plt Morph (test code = Normal (04/08/15 5:10 Plt Morph) AM) [facility] CenterShunpnjGQOXEZBCKY1075-18-34 11:10:00 Test Item Value Reference Range Interpretation Comments Lymphocytes # (test code = Lymphocytes 1.8 1.0-5.5 #) [facility] CenterSliaeysRPZGYZUALA1321-37-02 11:10:00 Test Item Value Reference Range Interpretation Comments Segs-Bands # (test code = Segs-Bands #) 3.0 1.5-8.1 [facility] CenterHxihgruTGMINDWRHF9035-64-65 11:10:00 Test Item Value Reference Range Interpretation Comments Monocytes # (test code 0.4 See_Comment [Aut omated message] The = Monocytes #) system which generated this result tra nsmitted reference range : <=0.8. The reference r nilam was not used to int erpret this result as normal/abnormal . [facility] CenterLrtpgzdZHYXWUDBMZ1285-98-89 11:10:00 Test Item Value Reference Range Interpretation Comments Eosinophils # (test code 0.1 See_Comment [A utomated message] The = Eosinophils #) system whic h generated this result tra nsmitted reference range : <=0.5. The reference r nilam was not used to int erpret this result as normal/abnormal . [facility] CenterLnnziaoAXWRIIZCOJ5443-98-80 11:10:00 Test Item Value Reference Range Interpretation Comments Monocytes (test code = Monocytes) 7.0 2.0-12.0 [facility] CenterIatdkptWCDFHJTRJY2258-01-63 11:10:00 Test Item Value Reference Range Interpretation Comments Segs (test code = Segs) 56.2 45.0-75.0 [facility] CenterBugygjhUABSXZBQDE1676-82-12 11:10:00 Test Item Value Reference Range Interpretation Comments Eosinophils (test code = 2.0 See_Comment [A utomated message] The Eosinophils) system which ge nerated this result tra nsmitted reference range : <=4.0. The reference r nilam was not used to int erpret this result as normal/abnormal . [facility] CenterFsaxrlxRBIUEIAUEY9254-06-48 11:10:00 Test Item Value Reference Range Interpretation Comments Lymphocytes (test code = Lymphocytes) 34.2 20.0-40.0 [facility] CenterPafgusjSPJPRVQFOW8462-11-54 11:10:00 Test Item Value Reference Range Interpretation Comments Basophils (test code = 0.6 See_Comment [Aut omated message] The Basophils) system which ge nerated this result tra nsmitted reference range : <=1.0. The reference r nilam was not used to int erpret this result as normal/abnormal . [facility] CenterSckzdvoJBTWGPHVSS0513-19-25 11:10:00 Test Item Value Reference Range Interpretation Comments MPV (test code = MPV) 8.3 7.4-10.4 [facility] CenterFxzqdbsPONSGYEIAL2467-33-03 11:10:00 Test Item Value Reference Range Interpretation Comments Platelet (test code = Platelet) 291 133-450 [facility] CenterGtjfnjqXACIMWIPZK2639-61-32 11:10:00 Test Item Value Reference Range Interpretation Comments RDW (test code = RDW) 17.7 11.5-14.5 [facility] CenterXnrualuTTIFICPGHU1690-48-97 11:10:00 Test Item Value Reference Range Interpretation Comments MCHC (test code = MCHC) 30.4 32.0-36.0 [facility] CenterZlxirlmSMUYUAZHVD9001-51-61 11:10:00 Test Item Value Reference Range Interpretation Comments MCH (test code = MCH) 21.9 pg 27.0-31.0 [facility] CenterLkbovryPIRQLHRYZJ5875-33-91 11:10:00 Test Item Value Reference Range Interpretation Comments RBC (test code = RBC) 3.99 4.20-5.40 [facility] CenterIqyzpweSKDHXTYIJZ5401-46-64 11:10:00 Test Item Value Reference Range Interpretation Comments WBC (test code = WBC) 5.4 3.7-10.4 [facility] CenterFldwerkQIMXUXZKHX4361-06-72 11:10:00 Test Item Value Reference Range Interpretation Comments MCV (test code = MCV) 72.1 80.0-98.0 [facility] CenterOgxwscwNMQIXPKZXV6643-93-51 11:10:00 Test Item Value Reference Range Interpretation Comments Hgb (test code = Hgb) 8.8 12.0-16.0 [facility] CenterOafhafkVOTVFCOAJF3141-68-91 11:10:00 Test Item Value Reference Range Interpretation Comments Hct (test code = Hct) 28.8 36.0-48.0 [facility] CenterLyqoizxXXXNPV1492-78-30 11:10:00 Test Item Value Reference Range Interpretation Comments CHD Risk (test code = CHD Risk) 3.45 3.90-5.80 [facility] CenterXgbixrqKUBTWW9096-55-67 11:10:00 Test Item Value Reference Range Interpretation Comments HDL (test code = HDL) 53 [facility] CenterKwypvizAJQICF2071-00-06 11:10:00 Test Item Value Reference Range Interpretation Comments LDL (Calculated) (test code = LDL 106 (Calculated)) [facility] CenterSxfnoiqOKHPQD5368-07-73 11:10:00 Test Item Value Reference Range Interpretation Comments Trig (test code = Trig) 121 [facility] CenterGxwnagiOLSTSA8085-95-74 11:10:00 Test Item Value Reference Range Interpretation Comments Chol (test code = Chol) 183 [facility] CenterJghmnocJUQVNI3227-22-65 11:10:00 Test Item Value Reference Range Interpretation Comments VLDL (test code = VLDL) 24 [facility]2016-01-14 02:16:00 Test Item Value Reference Range Interpretation Comments Folate Lvl (test code = Folate Lvl) 17.7 [facility]2016-01-14 02:16:00 Test Item Value Reference Range Interpretation Comments Vitamin B12 Lvl (test code = Vitamin 358 335-5790 B12 Lvl) [facility]2016-01-14 02:16:00 Test Item Value Reference Range Interpretation Comments Ferritin Lvl (test code = Ferritin Lvl) 2 [facility] CenterMshlrdxKCILIUYVQM7921-83-73 02:16:00 Test Item Value Reference Range Interpretation Comments Retic Auto (test code = Retic Auto) 1.4 0.5-1.5 [facility]2016-01-14 02:16:00 Test Item Value Reference Range Interpretation Comments Folate Lvl (test code = Folate Lvl) 17.7 [facility]2016-01-14 02:16:00 Test Item Value Reference Range Interpretation Comments Vitamin B12 Lvl (test code = Vitamin 018 972-5684 B12 Lvl) [facility]2016-01-14 02:16:00 Test Item Value Reference Range Interpretation Comments Ferritin Lvl (test code = Ferritin Lvl) 2 [facility] CenterXphrglsNVEWQBQISZ3961-71-36 02:16:00 Test Item Value Reference Range Interpretation Comments Retic Auto (test code = Retic Auto) 1.4 0.5-1.5 [facility]2016-01-14 02:16:00 Test Item Value Reference Range Interpretation Comments Folate Lvl (test code = Folate Lvl) 17.7 [facility]2016-01-14 02:16:00 Test Item Value Reference Range Interpretation Comments Vitamin B12 Lvl (test code = Vitamin 714 195-7612 B12 Lvl) [facility]2016-01-14 02:16:00 Test Item Value Reference Range Interpretation Comments Ferritin Lvl (test code = Ferritin Lvl) 2 [facility] CenterJihsvjrLFQPHGXMHO8255-05-42 02:16:00 Test Item Value Reference Range Interpretation Comments Retic Auto (test code = Retic Auto) 1.4 0.5-1.5 [facility]2016-01-14 02:16:00 Test Item Value Reference Range Interpretation Comments Folate Lvl (test code = Folate Lvl) 17.7 [facility]2016-01-14 02:16:00 Test Item Value Reference Range Interpretation Comments Vitamin B12 Lvl (test code = Vitamin 375 169-5705 B12 Lvl) [facility]2016-01-14 02:16:00 Test Item Value Reference Range Interpretation Comments Ferritin Lvl (test code = Ferritin Lvl) 2 [facility] CenterMhyrywjQOBWSUIAZA3576-03-74 02:16:00 Test Item Value Reference Range Interpretation Comments Retic Auto (test code = Retic Auto) 1.4 0.5-1.5 [facility]2016-01-14 02:16:00 Test Item Value Reference Range Interpretation Comments Folate Lvl (test code = Folate Lvl) 17.7 [facility]2016-01-14 02:16:00 Test Item Value Reference Range Interpretation Comments Vitamin B12 Lvl (test code = Vitamin 415 799-9495 B12 Lvl) [facility]2016-01-14 02:16:00 Test Item Value Reference Range Interpretation Comments Ferritin Lvl (test code = Ferritin Lvl) 2 [facility] CenterLxaruouBDNZOMMSBB1459-54-91 02:16:00 Test Item Value Reference Range Interpretation Comments Retic Auto (test code = Retic Auto) 1.4 0.5-1.5 [facility]2016-01-14 02:16:00 Test Item Value Reference Range Interpretation Comments Folate Lvl (test code = Folate Lvl) 17.7 [facility]2016-01-14 02:16:00 Test Item Value Reference Range Interpretation Comments Vitamin B12 Lvl (test code = Vitamin 436 818-1521 B12 Lvl) [facility]2016-01-14 02:16:00 Test Item Value Reference Range Interpretation Comments Ferritin Lvl (test code = Ferritin Lvl) 2 [facility] CenterHlbmaycVALDVBFWXJ7259-44-92 02:16:00 Test Item Value Reference Range Interpretation Comments Retic Auto (test code = Retic Auto) 1.4 0.5-1.5 [facility]2016-01-14 02:16:00 Test Item Value Reference Range Interpretation Comments Folate Lvl (test code = Folate Lvl) 17.7 [facility] [id number] 02:16:00 Test Item Value Reference Range Interpretation Comments Vitamin B12 Lvl (test code = Vitamin 520 406-6721 B12 Lvl) [facility] [id number] 02:16:00 Test Item Value Reference Range Interpretation Comments Ferritin Lvl (test code = Ferritin Lvl) 2 5-204 [facility] CenterWbbninnFQLOUFZTJI0475-35-27 02:16:00 Test Item Value Reference Range Interpretation Comments Retic Auto (test code = Retic Auto) 1.4 0.5-1.5 [facility] [id number] 23:25:00 Test Item Value Reference Range Interpretation Comments Troponin-I (test code no gt See_Comment [Auto mated message] The = Troponin-I) system which g enerated this result transmit kuldip reference range : <=0.40. The reference r nilam was not used to interpr et this result as abiodun l/abnormal. [facility] HospitalSiOnyx PEBTQZK6603-29-22 23:25:00 Test Item Value Reference Range Interpretation Comments Total CK (test code = Total CK) 257 12-191 [facility] [id number] 23:25:00 Test Item Value Reference Range Interpretation Comments CK MB Index (test 0.4 See_Comment [Automate d message] The code = CK MB Index) system w [facility] generated this result transmit kuldip reference range : <=2.5. The reference range was not used to interpr et this result as abiodun l/abnormal. [facility] HospitalCrucialtec [id number] 23:25:00 Test Item Value Reference Range Interpretation Comments CK MB (test code = CK MB) 1.1 0.5-3.6 [facility] [id number] 23:25:00 Test Item Value Reference Range Interpretation Comments Troponin-I (test code no gt See_Comment [Auto mated message] The = Troponin-I) system which g enerated this result transmit kuldip reference range : <=0.40. The reference r nilam was not used to interpr et this result as abiodun l/abnormal. [facility] Center[facility] Labs [id number] 23:25:00 Test Item Value Reference Range Interpretation Comments Total CK (test code = Total CK) 257 191 [facility] [employer]2016-01-13 23:25:00 Test Item Value Reference Range Interpretation Comments CK MB Index (test 0.4 See_Comment [Automate d message] The code = CK MB Index) system w [employer] generated this result transmit kuldip reference range : <=2.5. The reference range was not used to interpr et this result as abiodun l/abnormal. [facility] [employer]2016-01-13 23:25:00 Test Item Value Reference Range Interpretation Comments CK MB (test code = CK MB) 1.1 0.5-3.6 [facility] [employer]2016-01-13 23:25:00 Test Item Value Reference Range Interpretation Comments Troponin-I (test code no gt See_Comment [Auto mated message] The = Troponin-I) system which g enerated this result transmit kuldip reference range : <=0.40. The reference r nilam was not used to interpr et this result as abiodun l/abnormal. [facility] [employer]2016-01-13 23:25:00 Test Item Value Reference Range Interpretation Comments Total CK (test code = Total CK) 257 191 [facility] [employer]2016-01-13 23:25:00 Test Item Value Reference Range Interpretation Comments CK MB Index (test 0.4 See_Comment [Automate d message] The code = CK MB Index) system [employer] generated this result transmit kuldip reference range : <=2.5. The reference range was not used to interpr et this result as abiodun l/abnormal. [facility] [employer]2016-01-13 23:25:00 Test Item Value Reference Range Interpretation Comments CK MB (test code = CK MB) 1.1 0.5-3.6 [facility] [employer]2016-01-13 23:25:00 Test Item Value Reference Range Interpretation Comments Troponin-I (test code no gt See_Comment [Auto mated message] The = Troponin-I) system which g enerated this result transmit kuldip reference range : <=0.40. The reference r nilam was not used to interpr et this result as abiodun l/abnormal. [employer] [id number] 23:25:00 Test Item Value Reference Range Interpretation Comments Total CK (test code = Total CK) 257 191 [facility] [employer]2016-01-13 23:25:00 Test Item Value Reference Range Interpretation Comments CK MB Index (test 0.4 See_Comment [Automate d message] The code = CK MB Index) system w [employer] generated this result transmit kuldip reference range : <=2.5. The reference range was not used to interpr et this result as abiodun l/abnormal. [employer]2016-01-13 23:25:00 Test Item Value Reference Range Interpretation Comments CK MB (test code = CK MB) 1.1 0.5-3.6 [facility] [employer]2016-01-13 23:25:00 Test Item Value Reference Range Interpretation Comments Troponin-I (test code no gt See_Comment [Auto mated message] The = Troponin-I) system which g enerated this result transmit kuldip reference range : <=0.40. The reference r nilam was not used to interpr et this result as abiodun l/abnormal. [facility] [employer]2016-01-13 23:25:00 Test Item Value Reference Range Interpretation Comments Total CK (test code = Total CK) 257 191 [facility] [employer]2016-01-13 23:25:00 Test Item Value Reference Range Interpretation Comments CK MB Index (test 0.4 See_Comment [Automate d message] The code = CK MB Index) system w [employer] generated this result transmit kuldip reference range : <=2.5. The reference range was not used to interpr et this result as abiodun l/abnormal. [employer]2016-01-13 23:25:00 Test Item Value Reference Range Interpretation Comments CK MB (test code = CK MB) 1.1 0.5-3.6 [facility] [employer]2016-01-13 23:25:00 Test Item Value Reference Range Interpretation Comments Troponin-I (test code no gt See_Comment [Auto mated message] The = Troponin-I) system which g enerated this result transmit kuldip reference range : <=0.40. The reference r nilam was not used to interpr et this result as abiodun l/abnormal. [employer] [id number] 23:25:00 Test Item Value Reference Range Interpretation Comments Total CK (test code = Total CK) 257 191 [facility] [employer]2016-01-13 23:25:00 Test Item Value Reference Range Interpretation Comments CK MB Index (test 0.4 See_Comment [Automate d message] The code = CK MB Index) system [employer] generated this result transmit kuldip reference range : <=2.5. The reference range was not used to interpr et this result as abiodun l/abnormal. [employer]2016-01-13 23:25:00 Test Item Value Reference Range Interpretation Comments CK MB (test code = CK MB) 1.1 0.5-3.6 [facility] [employer]2016-01-13 23:25:00 Test Item Value Reference Range Interpretation Comments Troponin-I (test code no gt See_Comment [Auto mated message] The = Troponin-I) system which g enerated this result transmit kuldip reference range : <=0.40. The reference r nilam was not used to interpr et this result as abiodun l/abnormal. [employer]2016-01-13 23:25:00 Test Item Value Reference Range Interpretation Comments Total CK (test code = Total CK) 257 191 [facility] [employer]2016-01-13 23:25:00 Test Item Value Reference Range Interpretation Comments CK MB Index (test 0.4 See_Comment [Automate d message] The code = CK MB Index) system [employer] generated this result transmit kuldip reference range : <=2.5. The reference range was not used to interpr et this result as abiodun l/abnormal. [employer]2016-01-13 23:25:00 Test Item Value Reference Range Interpretation Comments CK MB (test code = CK MB) 1.1 0.5-3.6 Reacción2016-01-13 15:59:00 Test Item Value Reference Range Interpretation Comments Troponin-I (test code no gt See_Comment [Auto mated message] The = Troponin-I) system which g enerated this result transmit kuldip reference range : <=0.40. The reference r nilam was not used to interpr et this result as abiodun l/abnormal. Reacción2016-01-13 15:59:00 Test Item Value Reference Range Interpretation Comments Troponin-I (test code no gt See_Comment [Auto mated message] The = Troponin-I) system which g enerated this result transmit kuldip reference range : <=0.40. The reference r nilam was not used to interpr et this result as abiodun l/abnormal. [facility] [id number] 15:59:00 Test Item Value Reference Range Interpretation Comments Troponin-I (test code no gt See_Comment [Auto mated message] The = Troponin-I) system which g enerated this result transmit kuldip reference range : <=0.40. The reference r nilam was not used to interpr et this result as abiodun l/abnormal. [facility] [id number] 15:59:00 Test Item Value Reference Range Interpretation Comments Troponin-I (test code no gt See_Comment [Auto mated message] The = Troponin-I) system which g enerated this result transmit kuldip reference range : <=0.40. The reference r nilam was not used to interpr et this result as abiodun l/abnormal. [facility] [id number] 15:59:00 Test Item Value Reference Range Interpretation Comments Troponin-I (test code no gt See_Comment [Auto mated message] The = Troponin-I) system which g enerated this result transmit kuldip reference range : <=0.40. The reference r nilam was not used to interpr et this result as abiodun l/abnormal. [facility] [id number] 15:59:00 Test Item Value Reference Range Interpretation Comments Troponin-I (test code no gt See_Comment [Auto mated message] The = Troponin-I) system which g enerated this result transmit kuldip reference range : <=0.40. The reference r nilam was not used to interpr et this result as abiodun l/abnormal. [facility] HospitalDream [id number] 15:59:00 Test Item Value Reference Range Interpretation Comments Troponin-I (test code no gt See_Comment [Auto mated message] The = Troponin-I) system which g enerated this result transmit kuldip reference range : <=0.40. The reference r nilam was not used to interpr et this result as abiodun l/abnormal. [facility] AND [id number] 14:33:00 Test Item Value Reference Range Interpretation Comments UA Spec Grav (test code = UA Spec 1.020 1 Grav) [facility] AND [id number] 14:33:00 Test Item Value Reference Range Interpretation Comments UA Protein (test code = Trace *ABN*(04/07/15 UA Protein) 8:33 AM) [facility] AND [id number] 14:33:00 Test Item Value Reference Range Interpretation Comments UA pH (test code = UA pH) 6.5 1 5.0-8.0 [facility] AND [id number] 14:33:00 Test Item Value Reference Range Interpretation Comments UA Ketones (test code Negative *NA*(04/07/15 = UA Ketones) 8:33 AM) [facility] AND [id number] 14:33:00 Test Item Value Reference Range Interpretation Comments UA Glucose (test code Negative (04/07/15 8:33 = UA Glucose) AM) [facility] AND [id number] 14:33:00 Test Item Value Reference Range Interpretation Comments UA Bili (test code = Negative *NA*(04/07/15 UA Bili) 8:33 AM) [facility] AND [id number] 14:33:00 Test Item Value Reference Range Interpretation Comments UA Urobilinogen (test code = UA 0.2 0.1-1.0 Urobilinogen) [facility] AND [id number] 14:33:00 Test Item Value Reference Range Interpretation Comments UA Blood (test code = Large *ABN*(04/07/15 UA Blood) 8:33 AM) [facility] AND [id number] 14:33:00 Test Item Value Reference Range Interpretation Comments UA Leuk Est (test Negative (04/07/15 8:33 code = UA Leuk Est) AM) [facility] AND [id number] 14:33:00 Test Item Value Reference Range Interpretation Comments UA Nitrite (test code Negative (04/07/15 8:33 = UA Nitrite) AM) [facility] AND [id number] 14:33:00 Test Item Value Reference Range Interpretation Comments UA Turbidity (test code = Clear (04/07/15 8:33 UA Turbidity) AM) [facility] AND [id number] 14:33:00 Test Item Value Reference Range Interpretation Comments UA Color (test code = Yellow *NA*(04/07/15 UA Color) 8:33 AM) [facility] AND [id number] 14:33:00 Test Item Value Reference Range Interpretation Comments UA Mucus (test code = UA Mucus) Few /LPF [facility] AND [id number] 14:33:00 Test Item Value Reference Range Interpretation Comments UA Bacteria (test code = UA Occasional /HPF Bacteria) [facility] AND [id number] 14:33:00 Test Item Value Reference Range Interpretation Comments UA WBC (test code = UA WBC) 0-2 /HPF [facility] AND [id number] 14:33:00 Test Item Value Reference Range Interpretation Comments UA Sq Epi (test code = UA Sq Epi) Few /LPF [facility] AND [id number] 14:33:00 Test Item Value Reference Range Interpretation Comments Micro? (test code = Performed (04/07/15 8:33 Micro?) AM) [facility] AND [id number] 14:33:00 Test Item Value Reference Range Interpretation Comments UA RBC (test code = 3-5 /HPF See_Comment [Automa kuldip message] The UA RBC) system which ge nerated this result tra nsmitted reference range : <=2. The reference range was not used to interpr et this result as abiodun l/abnormal. [facility] AND [id number] 14:33:00 Test Item Value Reference Range Interpretation Comments UA Spec Grav (test code = UA Spec 1.020 1 Grav) [facility] AND [id number] 14:33:00 Test Item Value Reference Range Interpretation Comments UA Protein (test code = Trace *ABN*(04/07/15 UA Protein) 8:33 AM) [facility] AND [id number] 14:33:00 Test Item Value Reference Range Interpretation Comments UA pH (test code = UA pH) 6.5 1 5.0-8.0 [facility] AND [id number] 14:33:00 Test Item Value Reference Range Interpretation Comments UA Ketones (test code Negative *NA*(04/07/15 = UA Ketones) 8:33 AM) [facility] AND [id number] 14:33:00 Test Item Value Reference Range Interpretation Comments UA Glucose (test code Negative (04/07/15 8:33 = UA Glucose) AM) [facility] AND [id number] 14:33:00 Test Item Value Reference Range Interpretation Comments UA Bili (test code = Negative *NA*(04/07/15 UA Bili) 8:33 AM) [facility] AND [id number] 14:33:00 Test Item Value Reference Range Interpretation Comments UA Urobilinogen (test code = UA 0.2 0.1-1.0 Urobilinogen) [facility] AND [id number] 14:33:00 Test Item Value Reference Range Interpretation Comments UA Blood (test code = Large *ABN*(04/07/15 UA Blood) 8:33 AM) [facility] AND [id number] 14:33:00 Test Item Value Reference Range Interpretation Comments UA Leuk Est (test Negative (04/07/15 8:33 code = UA Leuk Est) AM) [facility] AND [id number] 14:33:00 Test Item Value Reference Range Interpretation Comments UA Nitrite (test code Negative (04/07/15 8:33 = UA Nitrite) AM) [facility] AND [id number] 14:33:00 Test Item Value Reference Range Interpretation Comments UA Turbidity (test code = Clear (04/07/15 8:33 UA Turbidity) AM) [facility] AND [id number] 14:33:00 Test Item Value Reference Range Interpretation Comments UA Color (test code = Yellow *NA*(04/07/15 UA Color) 8:33 AM) [facility] AND [id number] 14:33:00 Test Item Value Reference Range Interpretation Comments UA Mucus (test code = UA Mucus) Few /LPF [facility] AND [id number] 14:33:00 Test Item Value Reference Range Interpretation Comments UA Bacteria (test code = UA Occasional /HPF Bacteria) [facility] AND [id number] 14:33:00 Test Item Value Reference Range Interpretation Comments UA WBC (test code = UA WBC) 0-2 /HPF [facility] AND [id number] 14:33:00 Test Item Value Reference Range Interpretation Comments UA Sq Epi (test code = UA Sq Epi) Few /LPF [facility] AND [id number] 14:33:00 Test Item Value Reference Range Interpretation Comments Micro? (test code = Performed (04/07/15 8:33 Micro?) AM) [facility] AND [id number] 14:33:00 Test Item Value Reference Range Interpretation Comments UA RBC (test code = 3-5 /HPF See_Comment [Automa kuldip message] The UA RBC) system which ge nerated this result tra nsmitted reference range : <=2. The reference range was not used to interpr et this result as abiodun l/abnormal. [facility] AND [id number] 14:33:00 Test Item Value Reference Range Interpretation Comments UA Spec Grav (test code = UA Spec 1.020 1 Grav) [facility] AND [id number] 14:33:00 Test Item Value Reference Range Interpretation Comments UA Protein (test code = Trace *ABN*(04/07/15 UA Protein) 8:33 AM) [facility] AND [id number] 14:33:00 Test Item Value Reference Range Interpretation Comments UA pH (test code = UA pH) 6.5 1 5.0-8.0 [facility] AND [id number] 14:33:00 Test Item Value Reference Range Interpretation Comments UA Ketones (test code Negative *NA*(04/07/15 = UA Ketones) 8:33 AM) [facility] AND [id number] 14:33:00 Test Item Value Reference Range Interpretation Comments UA Glucose (test code Negative (04/07/15 8:33 = UA Glucose) AM) [facility] AND [id number] 14:33:00 Test Item Value Reference Range Interpretation Comments UA Bili (test code = Negative *NA*(04/07/15 UA Bili) 8:33 AM) [facility] AND [id number] 14:33:00 Test Item Value Reference Range Interpretation Comments UA Urobilinogen (test code = UA 0.2 0.1-1.0 Urobilinogen) [facility] AND [id number] 14:33:00 Test Item Value Reference Range Interpretation Comments UA Blood (test code = Large *ABN*(04/07/15 UA Blood) 8:33 AM) [facility] AND [id number] 14:33:00 Test Item Value Reference Range Interpretation Comments UA Leuk Est (test Negative (04/07/15 8:33 code = UA Leuk Est) AM) [facility] AND [id number] 14:33:00 Test Item Value Reference Range Interpretation Comments UA Nitrite (test code Negative (04/07/15 8:33 = UA Nitrite) AM) [facility] AND [id number] 14:33:00 Test Item Value Reference Range Interpretation Comments UA Turbidity (test code = Clear (04/07/15 8:33 UA Turbidity) AM) [facility] AND [id number] 14:33:00 Test Item Value Reference Range Interpretation Comments UA Color (test code = Yellow *NA*(04/07/15 UA Color) 8:33 AM) [facility] AND [id number] 14:33:00 Test Item Value Reference Range Interpretation Comments UA Mucus (test code = UA Mucus) Few /LPF [facility] AND [id number] 14:33:00 Test Item Value Reference Range Interpretation Comments UA Bacteria (test code = UA Occasional /HPF Bacteria) [facility] AND [id number] 14:33:00 Test Item Value Reference Range Interpretation Comments UA WBC (test code = UA WBC) 0-2 /HPF [facility] AND [id number] 14:33:00 Test Item Value Reference Range Interpretation Comments UA Sq Epi (test code = UA Sq Epi) Few /LPF [facility] AND [id number] 14:33:00 Test Item Value Reference Range Interpretation Comments Micro? (test code = Performed (04/07/15 8:33 Micro?) AM) [facility] AND [id number] 14:33:00 Test Item Value Reference Range Interpretation Comments UA RBC (test code = 3-5 /HPF See_Comment [Automa kuldip message] The UA RBC) system which ge nerated this result tra nsmitted reference range : <=2. The reference range was not used to interpr et this result as abiodun l/abnormal. [facility] AND [id number] 14:33:00 Test Item Value Reference Range Interpretation Comments UA Spec Grav (test code = UA Spec 1.020 1 Grav) [facility] AND [id number] 14:33:00 Test Item Value Reference Range Interpretation Comments UA Protein (test code = Trace *ABN*(04/07/15 UA Protein) 8:33 AM) [facility] AND [id number] 14:33:00 Test Item Value Reference Range Interpretation Comments UA pH (test code = UA pH) 6.5 1 5.0-8.0 [facility] AND [id number] 14:33:00 Test Item Value Reference Range Interpretation Comments UA Ketones (test code Negative *NA*(04/07/15 = UA Ketones) 8:33 AM) [facility] AND [id number] 14:33:00 Test Item Value Reference Range Interpretation Comments UA Glucose (test code Negative (04/07/15 8:33 = UA Glucose) AM) [facility] AND [id number] 14:33:00 Test Item Value Reference Range Interpretation Comments UA Bili (test code = Negative *NA*(04/07/15 UA Bili) 8:33 AM) [facility] AND [id number] 14:33:00 Test Item Value Reference Range Interpretation Comments UA Urobilinogen (test code = UA 0.2 0.1-1.0 Urobilinogen) [facility] AND [id number] 14:33:00 Test Item Value Reference Range Interpretation Comments UA Blood (test code = Large *ABN*(04/07/15 UA Blood) 8:33 AM) [facility] AND [id number] 14:33:00 Test Item Value Reference Range Interpretation Comments UA Leuk Est (test Negative (04/07/15 8:33 code = UA Leuk Est) AM) [facility] AND [id number] 14:33:00 Test Item Value Reference Range Interpretation Comments UA Nitrite (test code Negative (04/07/15 8:33 = UA Nitrite) AM) [facility] AND [id number] 14:33:00 Test Item Value Reference Range Interpretation Comments UA Turbidity (test code = Clear (04/07/15 8:33 UA Turbidity) AM) [facility] AND [id number] 14:33:00 Test Item Value Reference Range Interpretation Comments UA Color (test code = Yellow *NA*(04/07/15 UA Color) 8:33 AM) [facility] AND [id number] 14:33:00 Test Item Value Reference Range Interpretation Comments UA Mucus (test code = UA Mucus) Few /LPF [facility] [id number] 14:33:00 Test Item Value Reference Range Interpretation Comments UA Bacteria (test code = UA Occasional /HPF Bacteria) [facility] AND [id number] 14:33:00 Test Item Value Reference Range Interpretation Comments UA WBC (test code = UA WBC) 0-2 /HPF [facility] AND [id number] 14:33:00 Test Item Value Reference Range Interpretation Comments UA Sq Epi (test code = UA Sq Epi) Few /LPF [facility] AND [id number] 14:33:00 Test Item Value Reference Range Interpretation Comments Micro? (test code = Performed (04/07/15 8:33 Micro?) AM) [facility] AND [id number] 14:33:00 Test Item Value Reference Range Interpretation Comments UA RBC (test code = 3-5 /HPF See_Comment [Automa kuldip message] The UA RBC) system which ge nerated this result tra nsmitted reference range : <=2. The reference range was not used to interpr et this result as abiodun l/abnormal. [facility] AND [id number] 14:33:00 Test Item Value Reference Range Interpretation Comments UA Spec Grav (test code = UA Spec 1.020 1 Grav) [facility] AND [id number] 14:33:00 Test Item Value Reference Range Interpretation Comments UA Protein (test code = Trace *ABN*(04/07/15 UA Protein) 8:33 AM) [facility] AND [id number] 14:33:00 Test Item Value Reference Range Interpretation Comments UA pH (test code = UA pH) 6.5 1 5.0-8.0 [facility] AND [id number] 14:33:00 Test Item Value Reference Range Interpretation Comments UA Ketones (test code Negative *NA*(04/07/15 = UA Ketones) 8:33 AM) [facility] AND [id number] 14:33:00 Test Item Value Reference Range Interpretation Comments UA Glucose (test code Negative (04/07/15 8:33 = UA Glucose) AM) [facility] AND [id number] 14:33:00 Test Item Value Reference Range Interpretation Comments UA Bili (test code = Negative *NA*(04/07/15 UA Bili) 8:33 AM) [facility] AND [id number] 14:33:00 Test Item Value Reference Range Interpretation Comments UA Urobilinogen (test code = UA 0.2 0.1-1.0 Urobilinogen) [facility] AND [id number] 14:33:00 Test Item Value Reference Range Interpretation Comments UA Blood (test code = Large *ABN*(04/07/15 UA Blood) 8:33 AM) [facility] AND [id number] 14:33:00 Test Item Value Reference Range Interpretation Comments UA Leuk Est (test Negative (04/07/15 8:33 code = UA Leuk Est) AM) [facility] AND [id number] 14:33:00 Test Item Value Reference Range Interpretation Comments UA Nitrite (test code Negative (04/07/15 8:33 = UA Nitrite) AM) [facility] AND [id number] 14:33:00 Test Item Value Reference Range Interpretation Comments UA Turbidity (test code = Clear (04/07/15 8:33 UA Turbidity) AM) [facility] AND [id number] 14:33:00 Test Item Value Reference Range Interpretation Comments UA Color (test code = Yellow *NA*(04/07/15 UA Color) 8:33 AM) [facility] AND [id number] 14:33:00 Test Item Value Reference Range Interpretation Comments UA Mucus (test code = UA Mucus) Few /LPF [facility] AND [id number] 14:33:00 Test Item Value Reference Range Interpretation Comments UA Bacteria (test code = UA Occasional /HPF Bacteria) [facility] AND [id number] 14:33:00 Test Item Value Reference Range Interpretation Comments UA WBC (test code = UA WBC) 0-2 /HPF [facility] AND [id number] 14:33:00 Test Item Value Reference Range Interpretation Comments UA Sq Epi (test code = UA Sq Epi) Few /LPF [facility] AND [id number] 14:33:00 Test Item Value Reference Range Interpretation Comments Micro? (test code = Performed (04/07/15 8:33 Micro?) AM) [facility] AND [id number] 14:33:00 Test Item Value Reference Range Interpretation Comments UA RBC (test code = 3-5 /HPF See_Comment [Automa kuldip message] The UA RBC) system which ge nerated this result tra nsmitted reference range : <=2. The reference range was not used to interpr et this result as abiodun l/abnormal. [facility] AND [id number] 14:33:00 Test Item Value Reference Range Interpretation Comments UA Spec Grav (test code = UA Spec 1.020 1 Grav) [facility] AND [id number] 14:33:00 Test Item Value Reference Range Interpretation Comments UA Protein (test code = Trace *ABN*(04/07/15 UA Protein) 8:33 AM) [facility] AND [id number] 14:33:00 Test Item Value Reference Range Interpretation Comments UA pH (test code = UA pH) 6.5 1 5.0-8.0 [facility] AND [id number] 14:33:00 Test Item Value Reference Range Interpretation Comments UA Ketones (test code Negative *NA*(04/07/15 = UA Ketones) 8:33 AM) [facility] AND [id number] 14:33:00 Test Item Value Reference Range Interpretation Comments UA Glucose (test code Negative (04/07/15 8:33 = UA Glucose) AM) [facility] AND [id number] 14:33:00 Test Item Value Reference Range Interpretation Comments UA Bili (test code = Negative *NA*(04/07/15 UA Bili) 8:33 AM) [facility] AND [id number] 14:33:00 Test Item Value Reference Range Interpretation Comments UA Urobilinogen (test code = UA 0.2 0.1-1.0 Urobilinogen) [facility] AND [id number] 14:33:00 Test Item Value Reference Range Interpretation Comments UA Blood (test code = Large *ABN*(04/07/15 UA Blood) 8:33 AM) [facility] AND [id number] 14:33:00 Test Item Value Reference Range Interpretation Comments UA Leuk Est (test Negative (04/07/15 8:33 code = UA Leuk Est) AM) [facility] AND [id number] 14:33:00 Test Item Value Reference Range Interpretation Comments UA Nitrite (test code Negative (04/07/15 8:33 = UA Nitrite) AM) [facility] AND [id number] 14:33:00 Test Item Value Reference Range Interpretation Comments UA Turbidity (test code = Clear (04/07/15 8:33 UA Turbidity) AM) [facility] AND [id number] 14:33:00 Test Item Value Reference Range Interpretation Comments UA Color (test code = Yellow *NA*(04/07/15 UA Color) 8:33 AM) [facility] AND [id number] 14:33:00 Test Item Value Reference Range Interpretation Comments UA Mucus (test code = UA Mucus) Few /LPF [facility] AND [id number] 14:33:00 Test Item Value Reference Range Interpretation Comments UA Bacteria (test code = UA Occasional /HPF Bacteria) [facility] AND [id number] 14:33:00 Test Item Value Reference Range Interpretation Comments UA WBC (test code = UA WBC) 0-2 /HPF [facility] AND [id number] 14:33:00 Test Item Value Reference Range Interpretation Comments UA Sq Epi (test code = UA Sq Epi) Few /LPF [facility] AND [id number] 14:33:00 Test Item Value Reference Range Interpretation Comments Micro? (test code = Performed (04/07/15 8:33 Micro?) AM) [facility] AND [id number] 14:33:00 Test Item Value Reference Range Interpretation Comments UA RBC (test code = 3-5 /HPF See_Comment [Automa kuldip message] The UA RBC) system which ge nerated this result tra nsmitted reference range : <=2. The reference range was not used to interpr et this result as abiodun l/abnormal. [facility] AND [id number] 14:33:00 Test Item Value Reference Range Interpretation Comments UA Spec Grav (test code = UA Spec 1.020 1 Grav) [facility] AND [id number] 14:33:00 Test Item Value Reference Range Interpretation Comments UA Protein (test code = Trace *ABN*(04/07/15 UA Protein) 8:33 AM) [facility] AND [id number] 14:33:00 Test Item Value Reference Range Interpretation Comments UA pH (test code = UA pH) 6.5 1 5.0-8.0 [facility] AND [id number] 14:33:00 Test Item Value Reference Range Interpretation Comments UA Ketones (test code Negative *NA*(04/07/15 = UA Ketones) 8:33 AM) [facility] AND [id number] 14:33:00 Test Item Value Reference Range Interpretation Comments UA Glucose (test code Negative (04/07/15 8:33 = UA Glucose) AM) [facility] AND [id number] 14:33:00 Test Item Value Reference Range Interpretation Comments UA Bili (test code = Negative *NA*(04/07/15 UA Bili) 8:33 AM) [facility] AND [id number] 14:33:00 Test Item Value Reference Range Interpretation Comments UA Urobilinogen (test code = UA 0.2 0.1-1.0 Urobilinogen) [facility] AND [id number] 14:33:00 Test Item Value Reference Range Interpretation Comments UA Blood (test code = Large *ABN*(04/07/15 UA Blood) 8:33 AM) [facility] AND [id number] 14:33:00 Test Item Value Reference Range Interpretation Comments UA Leuk Est (test Negative (04/07/15 8:33 code = UA Leuk Est) AM) [facility] AND [id number] 14:33:00 Test Item Value Reference Range Interpretation Comments UA Nitrite (test code Negative (04/07/15 8:33 = UA Nitrite) AM) [facility] AND [id number] 14:33:00 Test Item Value Reference Range Interpretation Comments UA Turbidity (test code = Clear (04/07/15 8:33 UA Turbidity) AM) [facility] AND [id number] 14:33:00 Test Item Value Reference Range Interpretation Comments UA Color (test code = Yellow *NA*(04/07/15 UA Color) 8:33 AM) [facility] Eva AND [id number] 14:33:00 Test Item Value Reference Range Interpretation Comments UA Mucus (test code = UA Mucus) Few /[facility]F [facility] [id number] 14:33:00 Test Item Value Reference Range Interpretation Comments UA Bacteria (test code = UA Occasional /HPF Bacteria) [facility] [id number] 14:33:00 Test Item Value Reference Range Interpretation Comments UA WBC (test code = UA WBC) 0-2 /HPF [facility] [id number] 14:33:00 Test Item Value Reference Range Interpretation Comments UA Sq Epi (test code = UA Sq Epi) Few /LPF [facility] [id number] 14:33:00 Test Item Value Reference Range Interpretation Comments Micro? (test code = Performed (04/07/15 8:33 Micro?) AM) [facility] Eva AND [id number] 14:33:00 Test Item Value Reference Range Interpretation Comments UA RBC (test code = 3-5 /HPF See_Comment [Automa kuldip message] The UA RBC) system which ge nerated this result tra nsmitted reference range : <=2. The reference range was not used to interpr et this result as abiodun l/abnormal. [facility] AntonioannCARDIAC [id number] 13:28:00 Test Item Value Reference Range Interpretation Comments Troponin-I (test code no gt See_Comment [Auto mated message] The = Troponin-I) system which g enerated this result transmit kuldip reference range : <=0.40. The reference r nilam was not used to interpr et this result as abiodun l/abnormal. [facility] [id number] 13:28:00 Test Item Value Reference Range Interpretation Comments BNP (test code = BNP) 45 [facility] [id number] 13:28:00 Test Item Value Reference Range Interpretation Comments CK MB (test code = CK MB) 1.2 0.5-3.6 [facility] iSnapannCARDIAC [id number] 13:28:00 Test Item Value Reference Range Interpretation Comments Total CK (test code = Total CK) 219 12-191 [facility] [id number] 13:28:00 Test Item Value Reference Range Interpretation Comments CK MB Index (test 0.5 See_Comment [Automate d message] The code = CK MB Index) system w [employer] generated this result transmit kuldip reference range : <=2.5. The reference range was not used to interpr et this result as abiodun l/abnormal. [facility] [employer] [id number] 13:28:00 Test Item Value Reference Range Interpretation Comments eGFR (test code = eGFR) 115 [facility] [employer] [id number] 13:28:00 Test Item Value Reference Range Interpretation Comments AGAP (test code = AGAP) 15.0 10.0-20.0 [facility] [employer] [id number] 13:28:00 Test Item Value Reference Range Interpretation Comments Bili Total (test code = Bili Total) 0.2 0.2-1.3 [facility] [employer] [id number] 13:28:00 Test Item Value Reference Range Interpretation Comments A/G Ratio (test code = A/G Ratio) 0.6 0.7-1.6 [facility] [employer] [id number] 13:28:00 Test Item Value Reference Range Interpretation Comments Globulin (test code = Globulin) 5.4 2.0-4.0 [facility] [employer] [id number] 13:28:00 Test Item Value Reference Range Interpretation Comments B/C Ratio (test code = B/C Ratio) 12 6-25 [facility] [employer] [id number] 13:28:00 Test Item Value Reference Range Interpretation Comments Alk Phos (test code = Alk Phos) 107 39-136 [facility] [employer] [id number] 13:28:00 Test Item Value Reference Range Interpretation Comments ALT (test code = ALT) 24 See_Comment [Auto mated message] The system which ge nerated this result transmit kuldip reference range : <=65. The reference range was not used to interpr et this result as abiodun l/abnormal. [facility]2016-01-13 13:28:00 Test Item Value Reference Range Interpretation Comments AST (test code = AST) 19 See_Comment [Auto mated message] The system which ge nerated this result transmit kuldip reference range : <=37. The reference range was not used to interpr et this result as abiodun l/abnormal. [facility]2016-01-13 13:28:00 Test Item Value Reference Range Interpretation Comments CO2 (test code = CO2) 24 24-32 [facility]2016-01-13 13:28:00 Test Item Value Reference Range Interpretation Comments Calcium Lvl (test code = Calcium Lvl) 9.5 8.5-10.5 [facility]2016-01-13 13:28:00 Test Item Value Reference Range Interpretation Comments Total Protein (test code = Total 8.4 6.4-8.4 Protein) [facility]2016-01-13 13:28:00 Test Item Value Reference Range Interpretation Comments BUN (test code = BUN) 9 7-22 [facility]2016-01-13 13:28:00 Test Item Value Reference Range Interpretation Comments Albumin Lvl (test code = Albumin Lvl) 3.0 3.5-5.0 [facility]2016-01-13 13:28:00 Test Item Value Reference Range Interpretation Comments Creatinine Lvl (test code = Creatinine 0.75 0.50-1.40 Lvl) [facility]2016-01-13 13:28:00 Test Item Value Reference Range Interpretation Comments Sodium Lvl (test code = Sodium Lvl) 139 135-145 [facility]2016-01-13 13:28:00 Test Item Value Reference Range Interpretation Comments Potassium Lvl (test code = Potassium 4.0 3.5-5.1 Lvl) [facility]2016-01-13 13:28:00 Test Item Value Reference Range Interpretation Comments Chloride Lvl (test code = Chloride Lvl) 104 95-109 [facility]2016-01-13 13:28:00 Test Item Value Reference Range Interpretation Comments Glucose Lvl (test code = Glucose Lvl) 118 70-99 [id number] 13:28:00 Test Item Value Reference Range Interpretation Comments Hgb (test code = Hgb) 9.2 12.0-16.0 [facility] CenterDystyibCCKRIVUYNJ8664-67-47 13:28:00 Test Item Value Reference Range Interpretation Comments MCV (test code = MCV) 71.0 80.0-98.0 [facility] CenterVqtyyjrYNTBOXLTIQ2951-98-12 13:28:00 Test Item Value Reference Range Interpretation Comments MCH (test code = MCH) 21.4 pg 27.0-31.0 [facility] CenterXgoggpuFYHITYTTJT2232-35-83 13:28:00 Test Item Value Reference Range Interpretation Comments Platelet (test code = Platelet) 280 133-450 [facility] CenterQquffzuLFHFWFVOFG6576-15-10 13:28:00 Test Item Value Reference Range Interpretation Comments MPV (test code = MPV) 8.0 7.4-10.4 [facility] CenterXmrhlauEEMOIPFHNS5870-36-45 13:28:00 Test Item Value Reference Range Interpretation Comments RDW (test code = RDW) 18.0 11.5-14.5 [facility] CenterKaksgzpBZEBFRFZUY6382-04-08 13:28:00 Test Item Value Reference Range Interpretation Comments MCHC (test code = MCHC) 30.1 32.0-36.0 [facility] CenterNjfkhxdNGGAEHQDOQ0255-50-76 13:28:00 Test Item Value Reference Range Interpretation Comments WBC (test code = WBC) 9.0 3.7-10.4 [facility] CenterUacwrqkGWUWITPLDJ7720-91-48 13:28:00 Test Item Value Reference Range Interpretation Comments RBC (test code = RBC) 4.30 4.20-5.40 [facility] CenterVcxfupdMCJTHMKVPG0765-16-97 13:28:00 Test Item Value Reference Range Interpretation Comments Hct (test code = Hct) 30.5 36.0-48.0 [facility] CenterMtntcwbARECSQXAYP6030-29-52 13:28:00 Test Item Value Reference Range Interpretation Comments Segs (test code = Segs) 84.7 45.0-75.0 [facility] CenterLmmgmagKNNWAXQDIA8019-04-14 13:28:00 Test Item Value Reference Range Interpretation Comments Lymphocytes (test code = Lymphocytes) 9.4 20.0-40.0 [facility] CenterMraiiwjEOEMXKFDJU7398-89-21 13:28:00 Test Item Value Reference Range Interpretation Comments Eosinophils # (test code 0.0 See_Comment [A utomated message] The = Eosinophils #) system [facility] generated this result tra nsmitted reference range : <=0.5. The reference r nilam was not used to int erpret this result as normal/abnormal . [facility] CenterIjhkjqxBMEUZRQEDL6723-60-50 13:28:00 Test Item Value Reference Range Interpretation Comments Lymphocytes # (test code = Lymphocytes 0.8 1.0-5.5 #) [facility] CenterUwdkwvbUGZBEVDJOB0140-40-03 13:28:00 Test Item Value Reference Range Interpretation Comments Monocytes # (test code 0.5 See_Comment [Aut omated message] The = Monocytes #) system which generated this result tra nsmitted reference range : <=0.8. The reference r nilam was not used to int erpret this result as normal/abnormal . [facility] CenterDqhadyiPFTHGHNDHB0233-21-86 13:28:00 Test Item Value Reference Range Interpretation Comments Segs-Bands # (test code = Segs-Bands #) 7.6 1.5-8.1 [facility] CenterChatzxrVJUPIUJIYX4048-12-51 13:28:00 Test Item Value Reference Range Interpretation Comments Monocytes (test code = Monocytes) 5.4 2.0-12.0 [facility] CenterZidtcuyZPEOGSKMXV9510-46-73 13:28:00 Test Item Value Reference Range Interpretation Comments Eosinophils (test code = 0.3 See_Comment [A utomated message] The Eosinophils) system which ge nerated this result tra nsmitted reference range : <=4.0. The reference r nilam was not used to int erpret this result as normal/abnormal . [facility] CenterMqbhzkaZGESWHUTXF7815-22-78 13:28:00 Test Item Value Reference Range Interpretation Comments Basophils (test code = 0.2 See_Comment [Aut omated message] The Basophils) system which ge nerated this result tra nsmitted reference range : <=1.0. The reference r nilam was not used to int erpret this result as normal/abnormal . [facility] CenterFjkukvwSLLDRDDYSR9690-52-84 13:28:00 Test Item Value Reference Range Interpretation Comments Basophils # (test code 0.0 See_Comment [Aut omated message] The = Basophils #) system which generated this result tra nsmitted reference range : <=0.2. The reference r nilam was not used to int erpret this result as normal/abnormal . [facility] [employer]2016-01-13 13:28:00 Test Item Value Reference Range Interpretation Comments Troponin-I (test code no gt See_Comment [Auto mated message] The = Troponin-I) system which g enerated this result transmit kuldip reference range : <=0.40. The reference r nilam was not used to interpr et this result as abiodun l/abnormal. [facility] [employer]2016-01-13 13:28:00 Test Item Value Reference Range Interpretation Comments BNP (test code = BNP) 45 [facility] [employer]2016-01-13 13:28:00 Test Item Value Reference Range Interpretation Comments CK MB (test code = CK MB) 1.2 0.5-3.6 [facility] [employer]2016-01-13 13:28:00 Test Item Value Reference Range Interpretation Comments Total CK (test code = Total CK) 219 12-191 [facility] [employer]2016-01-13 13:28:00 Test Item Value Reference Range Interpretation Comments CK MB Index (test 0.5 See_Comment [Automate d message] The code = CK MB Index) [facility] generated this result transmit kuldip reference range : <=2.5. The reference range was not used to interpr et this result as abiodun l/abnormal. [facility] [employer]2016-01-13 13:28:00 Test Item Value Reference Range Interpretation Comments eGFR (test code = eGFR) 115 [facility] [employer]2016-01-13 13:28:00 Test Item Value Reference Range Interpretation Comments AGAP (test code = AGAP) 15.0 10.0-20.0 [facility] [employer]2016-01-13 13:28:00 Test Item Value Reference Range Interpretation Comments Bili Total (test code = Bili Total) 0.2 0.2-1.3 [facility] [employer]2016-01-13 13:28:00 Test Item Value Reference Range Interpretation Comments A/G Ratio (test code = A/G Ratio) 0.6 0.7-1.6 [facility] [employer]2016-01-13 13:28:00 Test Item Value Reference Range Interpretation Comments Globulin (test code = Globulin) 5.4 2.0-4.0 [facility]2016-01-13 13:28:00 Test Item Value Reference Range Interpretation Comments B/C Ratio (test code = B/C Ratio) 12 6-25 [facility]2016-01-13 13:28:00 Test Item Value Reference Range Interpretation Comments Alk Phos (test code = Alk Phos) 107 39-136 [facility]2016-01-13 13:28:00 Test Item Value Reference Range Interpretation Comments ALT (test code = ALT) 24 See_Comment [Auto mated message] The system which ge nerated this result transmit kuldip reference range : <=65. The reference range was not used to interpr et this result as abiodun l/abnormal. [facility]2016-01-13 13:28:00 Test Item Value Reference Range Interpretation Comments AST (test code = AST) 19 See_Comment [Auto mated message] The system which ge nerated this result transmit kuldip reference range : <=37. The reference range was not used to interpr et this result as abiodun l/abnormal. [facility]2016-01-13 13:28:00 Test Item Value Reference Range Interpretation Comments CO2 (test code = CO2) 24 24-32 [facility]2016-01-13 13:28:00 Test Item Value Reference Range Interpretation Comments Calcium Lvl (test code = Calcium Lvl) 9.5 8.5-10.5 [facility]2016-01-13 13:28:00 Test Item Value Reference Range Interpretation Comments Total Protein (test code = Total 8.4 6.4-8.4 Protein) [facility]2016-01-13 13:28:00 Test Item Value Reference Range Interpretation Comments BUN (test code = BUN) 9 7-22 [facility]2016-01-13 13:28:00 Test Item Value Reference Range Interpretation Comments Albumin Lvl (test code = Albumin Lvl) 3.0 3.5-5.0 [facility]2016-01-13 13:28:00 Test Item Value Reference Range Interpretation Comments Creatinine Lvl (test code = Creatinine 0.75 0.50-1.40 Lvl) [facility]2016-01-13 13:28:00 Test Item Value Reference Range Interpretation Comments Sodium Lvl (test code = Sodium Lvl) 139 135-145 [facility]2016-01-13 13:28:00 Test Item Value Reference Range Interpretation Comments Potassium Lvl (test code = Potassium 4.0 3.5-5.1 Lvl) [facility]2016-01-13 13:28:00 Test Item Value Reference Range Interpretation Comments Chloride Lvl (test code = Chloride Lvl) 104 95-109 [facility]2016-01-13 13:28:00 Test Item Value Reference Range Interpretation Comments Glucose Lvl (test code = Glucose Lvl) 118 70-99 [facility] CenterLwxinehPNKYVEDRZC7896-28-83 13:28:00 Test Item Value Reference Range Interpretation Comments Hgb (test code = Hgb) 9.2 12.0-16.0 [facility] CenterWgsbtnaYWAOOWMTBA8229-16-64 13:28:00 Test Item Value Reference Range Interpretation Comments MCV (test code = MCV) 71.0 80.0-98.0 [facility] CenterFrymfvxZIULXYOSXA9502-52-59 13:28:00 Test Item Value Reference Range Interpretation Comments MCH (test code = MCH) 21.4 pg 27.0-31.0 [facility] CenterBdsuqhoSWUTJUZSXK8404-03-31 13:28:00 Test Item Value Reference Range Interpretation Comments Platelet (test code = Platelet) 280 133-450 [facility] CenterQydtlhdZMPXQPEPMD4837-80-58 13:28:00 Test Item Value Reference Range Interpretation Comments MPV (test code = MPV) 8.0 7.4-10.4 [facility] CenterHdieemqDPNWAXOMVE9413-62-35 13:28:00 Test Item Value Reference Range Interpretation Comments RDW (test code = RDW) 18.0 11.5-14.5 [facility] CenterOojhxwpFFTQQDUGVB8055-55-69 13:28:00 Test Item Value Reference Range Interpretation Comments MCHC (test code = MCHC) 30.1 32.0-36.0 [facility] CenterGmteekhPDXJBYTUCR3171-45-48 13:28:00 Test Item Value Reference Range Interpretation Comments WBC (test code = WBC) 9.0 3.7-10.4 [facility] CenterUtuhakhVLSHKSKDTJ8616-94-18 13:28:00 Test Item Value Reference Range Interpretation Comments RBC (test code = RBC) 4.30 4.20-5.40 [facility] CenterQnnotfiDVLBZCJLEH5304-04-83 13:28:00 Test Item Value Reference Range Interpretation Comments Hct (test code = Hct) 30.5 36.0-48.0 [facility] CenterLrovwriGEMRGZVFKV5864-13-68 13:28:00 Test Item Value Reference Range Interpretation Comments Segs (test code = Segs) 84.7 45.0-75.0 [facility] CenterWqbrcgvNVSDYQCSDR9811-97-79 13:28:00 Test Item Value Reference Range Interpretation Comments Lymphocytes (test code = Lymphocytes) 9.4 20.0-40.0 [place] 434026-01-13 13:28:00 Test Item Value Reference Range Interpretation Comments Eosinophils # (test code 0.0 See_Comment [A utomated message] The = Eosinophils #) system whic h generated this result tra nsmitted reference range : <=0.5. The reference r nilam was not used to int erpret this result as normal/abnormal . [facility] CenterRilbvfnPMWLNMYEAR1827-66-81 13:28:00 Test Item Value Reference Range Interpretation Comments Lymphocytes # (test code = Lymphocytes 0.8 1.0-5.5 #) [facility] CenterHvdbndoNGCXPJUDVA2079-27-56 13:28:00 Test Item Value Reference Range Interpretation Comments Monocytes # (test code 0.5 See_Comment [Aut omated message] The = Monocytes #) system which generated this result tra nsmitted reference range : <=0.8. The reference r nilam was not used to int erpret this result as normal/abnormal . [facility] CenterSgjxvitNTDYWOILMG2188-31-48 13:28:00 Test Item Value Reference Range Interpretation Comments Segs-Bands # (test code = Segs-Bands #) 7.6 1.5-8.1 [facility] CenterHppstfsSKNHBDVRGO2933-11-47 13:28:00 Test Item Value Reference Range Interpretation Comments Monocytes (test code = Monocytes) 5.4 2.0-12.0 [facility] CenterPvvycngCNXZNOEYOD8897-32-94 13:28:00 Test Item Value Reference Range Interpretation Comments Eosinophils (test code = 0.3 See_Comment [A utomated message] The Eosinophils) system which ge nerated this result tra nsmitted reference range : <=4.0. The reference r nilam was not used to int erpret this result as normal/abnormal . [place] 434026-01-13 13:28:00 Test Item Value Reference Range Interpretation Comments Basophils (test code = 0.2 See_Comment [Aut omated message] The Basophils) system which ge nerated this result tra nsmitted reference range : <=1.0. The reference r nilam was not used to int erpret this result as normal/abnormal . [facility] YpbvlsxINPBYMWDCC3259-73-42 13:28:00 Test Item Value Reference Range Interpretation Comments Basophils # (test code 0.0 See_Comment [Aut omated message] The = Basophils #) system which generated this result tra nsmitted reference range : <=0.2. The reference r nilam was not used to int erpret this result as normal/abnormal . [facility] [employer]2016-01-13 13:28:00 Test Item Value Reference Range Interpretation Comments Troponin-I (test code no gt See_Comment [Auto mated message] The = Troponin-I) system which g enerated this result transmit kuldip reference range : <=0.40. The reference r nilam was not used to interpr et this result as abiodun l/abnormal. [facility] [employer]2016-01-13 13:28:00 Test Item Value Reference Range Interpretation Comments BNP (test code = BNP) 45 [facility] [employer]2016-01-13 13:28:00 Test Item Value Reference Range Interpretation Comments CK MB (test code = CK MB) 1.2 0.5-3.6 [facility] [employer]2016-01-13 13:28:00 Test Item Value Reference Range Interpretation Comments Total CK (test code = Total CK) 219 12-191 [facility] [employer]2016-01-13 13:28:00 Test Item Value Reference Range Interpretation Comments CK MB Index (test 0.5 See_Comment [Automate d message] The code = CK MB Index) system w [facility] generated this result transmit kuldip reference range : <=2.5. The reference range was not used to interpr et this result as abiodun l/abnormal. [employer] [id number] 13:28:00 Test Item Value Reference Range Interpretation Comments eGFR (test code = eGFR) 115 [facility] [employer] [id number] 13:28:00 Test Item Value Reference Range Interpretation Comments AGAP (test code = AGAP) 15.0 10.0-20.0 [facility]2016-01-13 13:28:00 Test Item Value Reference Range Interpretation Comments Bili Total (test code = Bili Total) 0.2 0.2-1.3 [facility]2016-01-13 13:28:00 Test Item Value Reference Range Interpretation Comments A/G Ratio (test code = A/G Ratio) 0.6 0.7-1.6 [place] [id number] 13:28:00 Test Item Value Reference Range Interpretation Comments Globulin (test code = Globulin) 5.4 2.0-4.0 [place] 583986-01-13 13:28:00 Test Item Value Reference Range Interpretation Comments B/C Ratio (test code = B/C Ratio) 12 6-25 [place] 583986-01-13 13:28:00 Test Item Value Reference Range Interpretation Comments Alk Phos (test code = Alk Phos) 107 39-136 [facility]2016-01-13 13:28:00 Test Item Value Reference Range Interpretation Comments ALT (test code = ALT) 24 See_Comment [Auto mated message] The system which ge nerated this result transmit kuldip reference range : <=65. The reference range was not used to interpr et this result as abiodun l/abnormal. [facility]2016-01-13 13:28:00 Test Item Value Reference Range Interpretation Comments AST (test code = AST) 19 See_Comment [Auto mated message] The system which ge nerated this result transmit kuldip reference range : <=37. The reference range was not used to interpr et this result as abiodun l/abnormal. [facility]2016-01-13 13:28:00 Test Item Value Reference Range Interpretation Comments CO2 (test code = CO2) 24 24-32 [facility]2016-01-13 13:28:00 Test Item Value Reference Range Interpretation Comments Calcium Lvl (test code = Calcium Lvl) 9.5 8.5-10.5 [place] 583986-01-13 13:28:00 Test Item Value Reference Range Interpretation Comments Total Protein (test code = Total 8.4 6.4-8.4 Protein) [place] 583986-01-13 13:28:00 Test Item Value Reference Range Interpretation Comments BUN (test code = BUN) 9 7-22 [facility]2016-01-13 13:28:00 Test Item Value Reference Range Interpretation Comments Albumin Lvl (test code = Albumin Lvl) 3.0 3.5-5.0 [place] 583986-01-13 13:28:00 Test Item Value Reference Range Interpretation Comments Creatinine Lvl (test code = Creatinine 0.75 0.50-1.40 Lvl) [facility]2016-01-13 13:28:00 Test Item Value Reference Range Interpretation Comments Sodium Lvl (test code = Sodium Lvl) 139 135-145 [facility]2016-01-13 13:28:00 Test Item Value Reference Range Interpretation Comments Potassium Lvl (test code = Potassium 4.0 3.5-5.1 Lvl) [facility]2016-01-13 13:28:00 Test Item Value Reference Range Interpretation Comments Chloride Lvl (test code = Chloride Lvl) 104 95-109 [facility]2016-01-13 13:28:00 Test Item Value Reference Range Interpretation Comments Glucose Lvl (test code = Glucose Lvl) 118 70-99 [facility] CenterSjjzonrOLYAYRWUOV3068-37-80 13:28:00 Test Item Value Reference Range Interpretation Comments Hgb (test code = Hgb) 9.2 12.0-16.0 [facility] CenterQkpppubIOUISMQKID2702-64-26 13:28:00 Test Item Value Reference Range Interpretation Comments MCV (test code = MCV) 71.0 80.0-98.0 [facility] CenterGaycdylMCAXHSSKSB1231-22-31 13:28:00 Test Item Value Reference Range Interpretation Comments MCH (test code = MCH) 21.4 pg 27.0-31.0 [facility] CenterNziubrjABTWBETOZX1969-48-62 13:28:00 Test Item Value Reference Range Interpretation Comments Platelet (test code = Platelet) 280 133-450 [facility] CenterQxhkswyNDDEOKNRTJ1315-76-17 13:28:00 Test Item Value Reference Range Interpretation Comments MPV (test code = MPV) 8.0 7.4-10.4 [facility] CenterUzmygnyWXDKARHCNO2227-33-72 13:28:00 Test Item Value Reference Range Interpretation Comments RDW (test code = RDW) 18.0 11.5-14.5 [facility] CenterSepexgpAAKYKREOVL9271-84-49 13:28:00 Test Item Value Reference Range Interpretation Comments MCHC (test code = MCHC) 30.1 32.0-36.0 [facility] CenterVuevhkoTUHPXPYQAH4359-88-89 13:28:00 Test Item Value Reference Range Interpretation Comments WBC (test code = WBC) 9.0 3.7-10.4 [facility] CenterSbhrgatCREJVMHYGH5735-23-50 13:28:00 Test Item Value Reference Range Interpretation Comments RBC (test code = RBC) 4.30 4.20-5.40 [facility] CenterRdnhpukIGVJKKPILG4206-55-80 13:28:00 Test Item Value Reference Range Interpretation Comments Hct (test code = Hct) 30.5 36.0-48.0 [facility] CenterJlxwsjsKGXCKYLKNS0272-57-46 13:28:00 Test Item Value Reference Range Interpretation Comments Segs (test code = Segs) 84.7 45.0-75.0 [facility] CenterVmxvsftDSNBYIAWIM7712-18-51 13:28:00 Test Item Value Reference Range Interpretation Comments Lymphocytes (test code = Lymphocytes) 9.4 20.0-40.0 [facility] CenterAennanuPTKLWQTGDD1309-10-19 13:28:00 Test Item Value Reference Range Interpretation Comments Eosinophils # (test code 0.0 See_Comment [A utomated message] The = Eosinophils #) system whic h generated this result tra nsmitted reference range : <=0.5. The reference r nilam was not used to int erpret this result as normal/abnormal . [facility] CenterDmxdehmBDXVBHKRVK9933-62-16 13:28:00 Test Item Value Reference Range Interpretation Comments Lymphocytes # (test code = Lymphocytes 0.8 1.0-5.5 #) [facility] CenterYpmwrqqGYOJFDKGOP7152-19-43 13:28:00 Test Item Value Reference Range Interpretation Comments Monocytes # (test code 0.5 See_Comment [Aut omated message] The = Monocytes #) system which generated this result tra nsmitted reference range : <=0.8. The reference r nilam was not used to int erpret this result as normal/abnormal . [facility] CenterNihkkgpCVDWCPVDZN0309-02-12 13:28:00 Test Item Value Reference Range Interpretation Comments Segs-Bands # (test code = Segs-Bands #) 7.6 1.5-8.1 [facility] CenterWjvgicyZMHEYLTUZJ1093-02-02 13:28:00 Test Item Value Reference Range Interpretation Comments Monocytes (test code = Monocytes) 5.4 2.0-12.0 [facility] HospitalFtoyicfVAGCWZBQCC2944-61-99 13:28:00 Test Item Value Reference Range Interpretation Comments Eosinophils (test code = 0.3 See_Comment [A utomated message] The Eosinophils) system which ge nerated this result tra nsmitted reference range : <=4.0. The reference r nilam was not used to int erpret this result as normal/abnormal . [facility] CenterDegxoukPTVFGSNXDT1720-06-92 13:28:00 Test Item Value Reference Range Interpretation Comments Basophils (test code = 0.2 See_Comment [Aut omated message] The Basophils) system which ge nerated this result tra nsmitted reference range : <=1.0. The reference r nilam was not used to int erpret this result as normal/abnormal . [facility] CenterCvgcmloKUDJKOJVQR9676-13-77 13:28:00 Test Item Value Reference Range Interpretation Comments Basophils # (test code 0.0 See_Comment [Aut omated message] The = Basophils #) system which generated this result tra nsmitted reference range : <=0.2. The reference r nilam was not used to int erpret this result as normal/abnormal . [facility] CenterEpoque2016-01-13 13:28:00 Test Item Value Reference Range Interpretation Comments Troponin-I (test code no gt See_Comment [Auto mated message] The = Troponin-I) system which g enerated this result transmit kuldip reference range : <=0.40. The reference r nilam was not used to interpr et this result as abiodun l/abnormal. [facility] [employer] [id number] 13:28:00 Test Item Value Reference Range Interpretation Comments BNP (test code = BNP) 45 [facility] CenterBreeze TechnologyCARFisgoAC [id number] 13:28:00 Test Item Value Reference Range Interpretation Comments CK MB (test code = CK MB) 1.2 0.5-3.6 [facility] CenterSafeTacMagAC [id number] 13:28:00 Test Item Value Reference Range Interpretation Comments Total CK (test code = Total CK) 219 12-191 [facility] HospitalCARDICOVENANT MEDICAL CENTERCITCNLQ8238-95-73 13:28:00 Test Item Value Reference Range Interpretation Comments CK MB Index (test 0.5 See_Comment [Automate d message] The code = CK MB Index) system w [facility] generated this result transmit kuldip reference range : <=2.5. The reference range was not used to interpr et this result as abiodun l/abnormal. [facility] CenterEasyProperty [id number] 13:28:00 Test Item Value Reference Range Interpretation Comments eGFR (test code = eGFR) 115 [facility] CenterEasyProperty [id number] 13:28:00 Test Item Value Reference Range Interpretation Comments AGAP (test code = AGAP) 15.0 10.0-20.0 [facility]2016-01-13 13:28:00 Test Item Value Reference Range Interpretation Comments Bili Total (test code = Bili Total) 0.2 0.2-1.3 [facility]2016-01-13 13:28:00 Test Item Value Reference Range Interpretation Comments A/G Ratio (test code = A/G Ratio) 0.6 0.7-1.6 [facility]2016-01-13 13:28:00 Test Item Value Reference Range Interpretation Comments Globulin (test code = Globulin) 5.4 2.0-4.0 [facility]2016-01-13 13:28:00 Test Item Value Reference Range Interpretation Comments B/C Ratio (test code = B/C Ratio) 12 6-25 [facility] CenterBreeze TechnologyCANNON MEMORIAL HOSPITALSEPTX2515-54-26 13:28:00 Test Item Value Reference Range Interpretation Comments Alk Phos (test code = Alk Phos) 107 39-136 [facility]2016-01-13 13:28:00 Test Item Value Reference Range Interpretation Comments ALT (test code = ALT) 24 See_Comment [Auto mated message] The system which ge nerated this result transmit kuldip reference range : <=65. The reference range was not used to interpr et this result as abiodun l/abnormal. [facility] CenterEasyProperty [id number] 13:28:00 Test Item Value Reference Range Interpretation Comments AST (test code = AST) 19 See_Comment [Auto mated message] The system which ge nerated this result transmit kuldip reference range : <=37. The reference range was not used to interpr et this result as abiodun l/abnormal. [facility]2016-01-13 13:28:00 Test Item Value Reference Range Interpretation Comments CO2 (test code = CO2) 24 24-32 [facility]2016-01-13 13:28:00 Test Item Value Reference Range Interpretation Comments Calcium Lvl (test code = Calcium Lvl) 9.5 8.5-10.5 [facility]2016-01-13 13:28:00 Test Item Value Reference Range Interpretation Comments Total Protein (test code = Total 8.4 6.4-8.4 Protein) [facility]2016-01-13 13:28:00 Test Item Value Reference Range Interpretation Comments BUN (test code = BUN) 9 7-22 [facility]2016-01-13 13:28:00 Test Item Value Reference Range Interpretation Comments Albumin Lvl (test code = Albumin Lvl) 3.0 3.5-5.0 [facility]2016-01-13 13:28:00 Test Item Value Reference Range Interpretation Comments Creatinine Lvl (test code = Creatinine 0.75 0.50-1.40 Lvl) [facility]2016-01-13 13:28:00 Test Item Value Reference Range Interpretation Comments Sodium Lvl (test code = Sodium Lvl) 139 135-145 [facility]2016-01-13 13:28:00 Test Item Value Reference Range Interpretation Comments Potassium Lvl (test code = Potassium 4.0 3.5-5.1 Lvl) [facility]2016-01-13 13:28:00 Test Item Value Reference Range Interpretation Comments Chloride Lvl (test code = Chloride Lvl) 104 95-109 [facility]2016-01-13 13:28:00 Test Item Value Reference Range Interpretation Comments Glucose Lvl (test code = Glucose Lvl) 118 70-99 [facility] CenterOiztiozCHRNPRIGYX8525-03-34 13:28:00 Test Item Value Reference Range Interpretation Comments Hgb (test code = Hgb) 9.2 12.0-16.0 [facility] CenterLqlelpnVRPSOMWMSJ1418-52-97 13:28:00 Test Item Value Reference Range Interpretation Comments MCV (test code = MCV) 71.0 80.0-98.0 [facility] CenterMjcoyqwMRAUCUGPGV7062-23-17 13:28:00 Test Item Value Reference Range Interpretation Comments MCH (test code = MCH) 21.4 pg 27.0-31.0 [facility] CenterThpwozfZNFQKETBVG0629-38-53 13:28:00 Test Item Value Reference Range Interpretation Comments Platelet (test code = Platelet) 280 133-450 [facility] CenterTddxkcxVTIOTOQRZV2129-68-36 13:28:00 Test Item Value Reference Range Interpretation Comments MPV (test code = MPV) 8.0 7.4-10.4 [facility] CenterWrekfelKJLCWJHYTQ8543-56-56 13:28:00 Test Item Value Reference Range Interpretation Comments RDW (test code = RDW) 18.0 11.5-14.5 [facility] CenterKbixibiLCAOWFVTMM2913-98-49 13:28:00 Test Item Value Reference Range Interpretation Comments MCHC (test code = MCHC) 30.1 32.0-36.0 [facility] CenterExpcilkQQEUFEUDYW7552-21-95 13:28:00 Test Item Value Reference Range Interpretation Comments WBC (test code = WBC) 9.0 3.7-10.4 [facility] CenterEnjrvefIGTFBSWVYM3739-39-59 13:28:00 Test Item Value Reference Range Interpretation Comments RBC (test code = RBC) 4.30 4.20-5.40 [facility] CenterTiqoqgbHXITCMLMPE5617-38-18 13:28:00 Test Item Value Reference Range Interpretation Comments Hct (test code = Hct) 30.5 36.0-48.0 [facility] CenterSocaaokOYLRIDUFGZ4963-70-30 13:28:00 Test Item Value Reference Range Interpretation Comments Segs (test code = Segs) 84.7 45.0-75.0 [facility] CenterGaxenjcRCDEERTLAP9386-43-24 13:28:00 Test Item Value Reference Range Interpretation Comments Lymphocytes (test code = Lymphocytes) 9.4 20.0-40.0 [facility] CenterLpfjfhqCXHOPLBIIV9563-46-22 13:28:00 Test Item Value Reference Range Interpretation Comments Eosinophils # (test code 0.0 See_Comment [A utomated message] The = Eosinophils #) system whic h generated this result tra nsmitted reference range : <=0.5. The reference r nilam was not used to int erpret this result as normal/abnormal . [facility] CenterWyjjukcYHMSLZAIMJ9822-38-06 13:28:00 Test Item Value Reference Range Interpretation Comments Lymphocytes # (test code = Lymphocytes 0.8 1.0-5.5 #) [facility] CenterIrcxktnVCLGUJSJBC1084-50-83 13:28:00 Test Item Value Reference Range Interpretation Comments Monocytes # (test code 0.5 See_Comment [Aut omated message] The = Monocytes #) system which generated this result tra nsmitted reference range : <=0.8. The reference r nilam was not used to int erpret this result as normal/abnormal . [facility] CenterBwkqfnbRIJCEAJAOR1951-76-63 13:28:00 Test Item Value Reference Range Interpretation Comments Segs-Bands # (test code = Segs-Bands #) 7.6 1.5-8.1 [facility] CenterWdzrxmvXBXWUAQKEV5883-16-52 13:28:00 Test Item Value Reference Range Interpretation Comments Monocytes (test code = Monocytes) 5.4 2.0-12.0 [facility] CenterNwhhusoHZMVKMTXYA8370-83-74 13:28:00 Test Item Value Reference Range Interpretation Comments Eosinophils (test code = 0.3 See_Comment [A utomated message] The Eosinophils) system which ge nerated this result tra nsmitted reference range : <=4.0. The reference r nilam was not used to int erpret this result as normal/abnormal . [facility] CenterAsbdymaIRYNWLAAYN7709-32-76 13:28:00 Test Item Value Reference Range Interpretation Comments Basophils (test code = 0.2 See_Comment [Aut omated message] The Basophils) system which ge nerated this result tra nsmitted reference range : <=1.0. The reference r nilam was not used to int erpret this result as normal/abnormal . [facility] CenterJwfzlijYNNWDSMUVR5169-56-27 13:28:00 Test Item Value Reference Range Interpretation Comments Basophils # (test code 0.0 See_Comment [Aut omated message] The = Basophils #) system which generated this result tra nsmitted reference range : <=0.2. The reference r nilam was not used to int erpret this result as normal/abnormal . [facility] HospitalCARDIAC UCETEQY2173-30-08 13:28:00 Test Item Value Reference Range Interpretation Comments Troponin-I (test code no gt See_Comment [Auto mated message] The = Troponin-I) system which g enerated this result transmit kuldip reference range : <=0.40. The reference r nilam was not used to interpr et this result as abiodun l/abnormal. [facility] [employer]2016-01-13 13:28:00 Test Item Value Reference Range Interpretation Comments BNP (test code = BNP) 45 [facility] [employer] [id number] 13:28:00 Test Item Value Reference Range Interpretation Comments CK MB (test code = CK MB) 1.2 0.5-3.6 [facility] [employer] [id number] 13:28:00 Test Item Value Reference Range Interpretation Comments Total CK (test code = Total CK) 219 12-191 [facility] [employer] [id number] 13:28:00 Test Item Value Reference Range Interpretation Comments CK MB Index (test 0.5 See_Comment [Automate d message] The code = CK MB Index) system w [facility] generated this result transmit kuldip reference range : <=2.5. The reference range was not used to interpr et this result as abiodun l/abnormal. [employer]2016-01-13 13:28:00 Test Item Value Reference Range Interpretation Comments eGFR (test code = eGFR) 115 [facility] [employer] [id number] 13:28:00 Test Item Value Reference Range Interpretation Comments AGAP (test code = AGAP) 15.0 10.0-20.0 [facility] [employer] [id number] 13:28:00 Test Item Value Reference Range Interpretation Comments Bili Total (test code = Bili Total) 0.2 0.2-1.3 [facility] [employer]2016-01-13 13:28:00 Test Item Value Reference Range Interpretation Comments A/G Ratio (test code = A/G Ratio) 0.6 0.7-1.6 [facility] [employer]2016-01-13 13:28:00 Test Item Value Reference Range Interpretation Comments Globulin (test code = Globulin) 5.4 2.0-4.0 [facility] [employer]2016-01-13 13:28:00 Test Item Value Reference Range Interpretation Comments B/C Ratio (test code = B/C Ratio) 12 6-25 [facility] [employer]2016-01-13 13:28:00 Test Item Value Reference Range Interpretation Comments Alk Phos (test code = Alk Phos) 107 39-136 [facility]2016-01-13 13:28:00 Test Item Value Reference Range Interpretation Comments ALT (test code = ALT) 24 See_Comment [Auto mated message] The system which ge nerated this result transmit kuldip reference range : <=65. The reference range was not used to interpr et this result as abiodun l/abnormal. [facility]2016-01-13 13:28:00 Test Item Value Reference Range Interpretation Comments AST (test code = AST) 19 See_Comment [Auto mated message] The system which ge nerated this result transmit kuldip reference range : <=37. The reference range was not used to interpr et this result as abiodun l/abnormal. [facility]2016-01-13 13:28:00 Test Item Value Reference Range Interpretation Comments CO2 (test code = CO2) 24 24-32 [place] [id number] 13:28:00 Test Item Value Reference Range Interpretation Comments Calcium Lvl (test code = Calcium Lvl) 9.5 8.5-10.5 [facility]2016-01-13 13:28:00 Test Item Value Reference Range Interpretation Comments Total Protein (test code = Total 8.4 6.4-8.4 Protein) [facility]2016-01-13 13:28:00 Test Item Value Reference Range Interpretation Comments BUN (test code = BUN) 9 7-22 [place] [id number] 13:28:00 Test Item Value Reference Range Interpretation Comments Albumin Lvl (test code = Albumin Lvl) 3.0 3.5-5.0 [facility]2016-01-13 13:28:00 Test Item Value Reference Range Interpretation Comments Creatinine Lvl (test code = Creatinine 0.75 0.50-1.40 Lvl) [facility]2016-01-13 13:28:00 Test Item Value Reference Range Interpretation Comments Sodium Lvl (test code = Sodium Lvl) 139 135-145 [facility]2016-01-13 13:28:00 Test Item Value Reference Range Interpretation Comments Potassium Lvl (test code = Potassium 4.0 3.5-5.1 Lvl) [facility]2016-01-13 13:28:00 Test Item Value Reference Range Interpretation Comments Chloride Lvl (test code = Chloride Lvl) 104 95-109 [facility] [id number] 13:28:00 Test Item Value Reference Range Interpretation Comments Glucose Lvl (test code = Glucose Lvl) 118 70-99 [facility] CenterNgikvgfVNEFHXXFWQ6026-69-89 13:28:00 Test Item Value Reference Range Interpretation Comments Hgb (test code = Hgb) 9.2 12.0-16.0 [facility] CenterRlbanyqKKGBQXCUTQ9394-02-31 13:28:00 Test Item Value Reference Range Interpretation Comments MCV (test code = MCV) 71.0 80.0-98.0 [facility] CenterSynkauiSJLWGZUUHI1806-01-17 13:28:00 Test Item Value Reference Range Interpretation Comments MCH (test code = MCH) 21.4 pg 27.0-31.0 [facility] CenterMstzrboWADBDJMBOV4500-56-21 13:28:00 Test Item Value Reference Range Interpretation Comments Platelet (test code = Platelet) 280 133-450 [facility] CenterMlpwgnpSCEFGGGLPM9057-53-09 13:28:00 Test Item Value Reference Range Interpretation Comments MPV (test code = MPV) 8.0 7.4-10.4 [facility] CenterNsvjuaoWMAJKIFNKH5063-74-67 13:28:00 Test Item Value Reference Range Interpretation Comments RDW (test code = RDW) 18.0 11.5-14.5 [facility] CenterEfcoqznICOIUYOSHR6947-48-40 13:28:00 Test Item Value Reference Range Interpretation Comments MCHC (test code = MCHC) 30.1 32.0-36.0 [facility] CenterMdvcncdYFKBBOWUAC3283-19-91 13:28:00 Test Item Value Reference Range Interpretation Comments WBC (test code = WBC) 9.0 3.7-10.4 [facility] CenterNaxeetvAGDJZDQGWM4742-81-59 13:28:00 Test Item Value Reference Range Interpretation Comments RBC (test code = RBC) 4.30 4.20-5.40 [facility] CenterBfjralzRUKBEKVAOA1259-53-43 13:28:00 Test Item Value Reference Range Interpretation Comments Hct (test code = Hct) 30.5 36.0-48.0 [facility] CenterNlzzfrjWAWWFTNERZ0552-66-89 13:28:00 Test Item Value Reference Range Interpretation Comments Segs (test code = Segs) 84.7 45.0-75.0 [facility] CenterDswzmaqSYUXPUUNVM0450-17-75 13:28:00 Test Item Value Reference Range Interpretation Comments Lymphocytes (test code = Lymphocytes) 9.4 20.0-40.0 [facility] CenterMgntzxeMGLIBIZFXB8957-88-72 13:28:00 Test Item Value Reference Range Interpretation Comments Eosinophils # (test code 0.0 See_Comment [A utomated message] The = Eosinophils #) system ic h generated this result tra nsmitted reference range : <=0.5. The reference r nilam was not used to int erpret this result as normal/abnormal . [facility] CenterMggxhijKXBGVUNRMG6709-85-85 13:28:00 Test Item Value Reference Range Interpretation Comments Lymphocytes # (test code = Lymphocytes 0.8 1.0-5.5 #) [facility] CenterDeveshkQRBRJBOBWV9505-49-53 13:28:00 Test Item Value Reference Range Interpretation Comments Monocytes # (test code 0.5 See_Comment [Aut omated message] The = Monocytes #) system which generated this result tra nsmitted reference range : <=0.8. The reference r nilam was not used to int erpret this result as normal/abnormal . [facility] CenterXmygwesFKGFXMXYLE5235-47-76 13:28:00 Test Item Value Reference Range Interpretation Comments Segs-Bands # (test code = Segs-Bands #) 7.6 1.5-8.1 [facility] CenterPmkzmihMODLCDYNOX6136-79-51 13:28:00 Test Item Value Reference Range Interpretation Comments Monocytes (test code = Monocytes) 5.4 2.0-12.0 [facility] CenterLlnvtnaLMFCIKDXEW9232-27-18 13:28:00 Test Item Value Reference Range Interpretation Comments Eosinophils (test code = 0.3 See_Comment [A utomated message] The Eosinophils) system which ge nerated this result tra nsmitted reference range : <=4.0. The reference r nilam was not used to int erpret this result as normal/abnormal . [facility] CenterDgjafhuNZURIJYXUP7246-32-32 13:28:00 Test Item Value Reference Range Interpretation Comments Basophils (test code = 0.2 See_Comment [Aut omated message] The Basophils) system which ge nerated this result tra nsmitted reference range : <=1.0. The reference r nilam was not used to int erpret this result as normal/abnormal . [place] [id number] 13:28:00 Test Item Value Reference Range Interpretation Comments Basophils # (test code 0.0 See_Comment [Aut omated message] The = Basophils #) system which generated this result tra nsmitted reference range : <=0.2. The reference r nilam was not used to int erpret this result as normal/abnormal . [facility] [employer]2016-01-13 13:28:00 Test Item Value Reference Range Interpretation Comments Troponin-I (test code no gt See_Comment [Auto mated message] The = Troponin-I) system which g enerated this result transmit kuldip reference range : <=0.40. The reference r nilam was not used to interpr et this result as abiodun l/abnormal. [facility] [employer]2016-01-13 13:28:00 Test Item Value Reference Range Interpretation Comments BNP (test code = BNP) 45 [facility] [employer]2016-01-13 13:28:00 Test Item Value Reference Range Interpretation Comments CK MB (test code = CK MB) 1.2 0.5-3.6 [facility] [employer]2016-01-13 13:28:00 Test Item Value Reference Range Interpretation Comments Total CK (test code = Total CK) 219 12-191 [facility] [employer]2016-01-13 13:28:00 Test Item Value Reference Range Interpretation Comments CK MB Index (test 0.5 See_Comment [Automate d message] The code = CK MB Index) [facility] generated this result transmit kuldip reference range : <=2.5. The reference range was not used to interpr et this result as abiodun l/abnormal. [facility] [employer]2016-01-13 13:28:00 Test Item Value Reference Range Interpretation Comments eGFR (test code = eGFR) 115 [facility] [employer] [id number] 13:28:00 Test Item Value Reference Range Interpretation Comments AGAP (test code = AGAP) 15.0 10.0-20.0 [facility] [employer] [id number] 13:28:00 Test Item Value Reference Range Interpretation Comments Bili Total (test code = Bili Total) 0.2 0.2-1.3 [facility] [employer]2016-01-13 13:28:00 Test Item Value Reference Range Interpretation Comments A/G Ratio (test code = A/G Ratio) 0.6 0.7-1.6 [facility]2016-01-13 13:28:00 Test Item Value Reference Range Interpretation Comments Globulin (test code = Globulin) 5.4 2.0-4.0 [facility]2016-01-13 13:28:00 Test Item Value Reference Range Interpretation Comments B/C Ratio (test code = B/C Ratio) 12 6-25 [facility]2016-01-13 13:28:00 Test Item Value Reference Range Interpretation Comments Alk Phos (test code = Alk Phos) 107 39-136 [facility]2016-01-13 13:28:00 Test Item Value Reference Range Interpretation Comments ALT (test code = ALT) 24 See_Comment [Auto mated message] The system which ge nerated this result transmit kuldip reference range : <=65. The reference range was not used to interpr et this result as abiodun l/abnormal. [facility] [facility]2016-01-13 13:28:00 Test Item Value Reference Range Interpretation Comments AST (test code = AST) 19 See_Comment [Auto mated message] The system which ge nerated this result transmit kuldip reference range : <=37. The reference range was not used to interpr et this result as abiodun l/abnormal. [facility]2016-01-13 13:28:00 Test Item Value Reference Range Interpretation Comments CO2 (test code = CO2) 24 24-32 [facility]2016-01-13 13:28:00 Test Item Value Reference Range Interpretation Comments Calcium Lvl (test code = Calcium Lvl) 9.5 8.5-10.5 [facility]2016-01-13 13:28:00 Test Item Value Reference Range Interpretation Comments Total Protein (test code = Total 8.4 6.4-8.4 Protein) [facility]2016-01-13 13:28:00 Test Item Value Reference Range Interpretation Comments BUN (test code = BUN) 9 7-22 [facility]2016-01-13 13:28:00 Test Item Value Reference Range Interpretation Comments Albumin Lvl (test code = Albumin Lvl) 3.0 3.5-5.0 [facility]2016-01-13 13:28:00 Test Item Value Reference Range Interpretation Comments Creatinine Lvl (test code = Creatinine 0.75 0.50-1.40 Lvl) [facility]2016-01-13 13:28:00 Test Item Value Reference Range Interpretation Comments Sodium Lvl (test code = Sodium Lvl) 139 135-145 [place] 583986-01-13 13:28:00 Test Item Value Reference Range Interpretation Comments Potassium Lvl (test code = Potassium 4.0 3.5-5.1 Lvl) [facility]2016-01-13 13:28:00 Test Item Value Reference Range Interpretation Comments Chloride Lvl (test code = Chloride Lvl) 104 95-109 [facility]2016-01-13 13:28:00 Test Item Value Reference Range Interpretation Comments Glucose Lvl (test code = Glucose Lvl) 118 70-99 [facility]WooouojOFDWVGMDZM7490-04-95 13:28:00 Test Item Value Reference Range Interpretation Comments Hgb (test code = Hgb) 9.2 12.0-16.0 [facility] CenterRzmptfnBYQTIIRGUF3722-37-52 13:28:00 Test Item Value Reference Range Interpretation Comments MCV (test code = MCV) 71.0 80.0-98.0 [facility] CenterPxbmtsoRQWSVFKLLS3488-39-76 13:28:00 Test Item Value Reference Range Interpretation Comments MCH (test code = MCH) 21.4 pg 27.0-31.0 [facility] CenterYlyfwrcAZIBESMGDM5182-40-83 13:28:00 Test Item Value Reference Range Interpretation Comments Platelet (test code = Platelet) 280 133-450 [facility] CenterBskfwkeQFDVFTDCOS9535-53-10 13:28:00 Test Item Value Reference Range Interpretation Comments MPV (test code = MPV) 8.0 7.4-10.4 [facility] CenterEwjgovhNISYAVRVFV7971-32-85 13:28:00 Test Item Value Reference Range Interpretation Comments RDW (test code = RDW) 18.0 11.5-14.5 [facility] CenterGbtidvhAQRMIRGKGG9335-47-10 13:28:00 Test Item Value Reference Range Interpretation Comments MCHC (test code = MCHC) 30.1 32.0-36.0 [facility] CenterGpxejooGPBKDLIZEO8589-08-88 13:28:00 Test Item Value Reference Range Interpretation Comments WBC (test code = WBC) 9.0 3.7-10.4 [facility] CenterXyxaedyLRODAJGEJG2787-79-07 13:28:00 Test Item Value Reference Range Interpretation Comments RBC (test code = RBC) 4.30 4.20-5.40 [facility] CenterVnypzkcONQJHZNVZY1785-61-48 13:28:00 Test Item Value Reference Range Interpretation Comments Hct (test code = Hct) 30.5 36.0-48.0 [facility] CenterMrixpqrSIUHVLGYEZ1683-19-80 13:28:00 Test Item Value Reference Range Interpretation Comments Segs (test code = Segs) 84.7 45.0-75.0 [facility] CenterXuckmsnBHPUZCJWIC9112-42-72 13:28:00 Test Item Value Reference Range Interpretation Comments Lymphocytes (test code = Lymphocytes) 9.4 20.0-40.0 [facility] CenterVljdtedNDSZCUEVDS6566-05-52 13:28:00 Test Item Value Reference Range Interpretation Comments Eosinophils # (test code 0.0 See_Comment [A utomated message] The = Eosinophils #) system [facility] h generated this result tra nsmitted reference range : <=0.5. The reference r nilam was not used to int erpret this result as normal/abnormal . [facility] CenterWuzrizmEINTUZFNNJ0655-58-77 13:28:00 Test Item Value Reference Range Interpretation Comments Lymphocytes # (test code = Lymphocytes 0.8 1.0-5.5 #) [facility] CenterScxzxhrMVASJBVZYX0478-10-62 13:28:00 Test Item Value Reference Range Interpretation Comments Monocytes # (test code 0.5 See_Comment [Aut omated message] The = Monocytes #) system which generated this result tra nsmitted reference range : <=0.8. The reference r nilam was not used to int erpret this result as normal/abnormal . [facility] CenterNpptzbkMIVDJGVMKY4596-31-52 13:28:00 Test Item Value Reference Range Interpretation Comments Segs-Bands # (test code = Segs-Bands #) 7.6 1.5-8.1 [facility] CenterGdfeeujOZQUFEIXLU6304-79-48 13:28:00 Test Item Value Reference Range Interpretation Comments Monocytes (test code = Monocytes) 5.4 2.0-12.0 [facility] CenterSndvxjvQWNKIINCRR8726-53-60 13:28:00 Test Item Value Reference Range Interpretation Comments Eosinophils (test code = 0.3 See_Comment [A utomated message] The Eosinophils) system which ge nerated this result tra nsmitted reference range : <=4.0. The reference r nilam was not used to int erpret this result as normal/abnormal . [facility] CenterTcahgkzLFVDXIQWCY6789-41-53 13:28:00 Test Item Value Reference Range Interpretation Comments Basophils (test code = 0.2 See_Comment [Aut omated message] The Basophils) system which ge nerated this result tra nsmitted reference range : <=1.0. The reference r nilam was not used to int erpret this result as normal/abnormal . [facility] CenterKxuwupvDDXKWSKOYY2858-00-67 13:28:00 Test Item Value Reference Range Interpretation Comments Basophils # (test code 0.0 See_Comment [Aut omated message] The = Basophils #) system which generated this result tra nsmitted reference range : <=0.2. The reference r nilam was not used to int erpret this result as normal/abnormal . [facility] 13:[facility]:00 Test Item Value Reference Range Interpretation Comments Troponin-I (test code no gt See_Comment [Auto mated message] The = Troponin-I) system which g enerated this result transmit kuldip reference range : <=0.40. The reference r nilam was not used to interpr et this result as abiodun l/abnormal. [facility] 13:28:00 Test Item Value Reference Range Interpretation Comments BNP (test code = BNP) 45 [facility] 13:28:00 Test Item Value Reference Range Interpretation Comments CK MB (test code = CK MB) 1.2 0.5-3.6 [facility] 13:28:00 Test Item Value Reference Range Interpretation Comments Total CK (test code = Total CK) 219 12-191 [facility] 13:28:00 Test Item Value Reference Range Interpretation Comments CK MB Index (test 0.5 See_Comment [Automate d message] The code = CK MB Index) system w [facility] generated this result transmit kuldip reference range : <=2.5. The reference range was not used to interpr et this result as abiodun l/abnormal. [facility]2016-01-13 13:28:00 Test Item Value Reference Range Interpretation Comments eGFR (test code = eGFR) 115 [facility]2016-01-13 13:28:00 Test Item Value Reference Range Interpretation Comments AGAP (test code = AGAP) 15.0 10.0-20.0 [place] 583986-01-13 13:28:00 Test Item Value Reference Range Interpretation Comments Bili Total (test code = Bili Total) 0.2 0.2-1.3 [place] 583986-01-13 13:28:00 Test Item Value Reference Range Interpretation Comments A/G Ratio (test code = A/G Ratio) 0.6 0.7-1.6 [place] 583986-01-13 13:28:00 Test Item Value Reference Range Interpretation Comments Globulin (test code = Globulin) 5.4 2.0-4.0 [facility]2016-01-13 13:28:00 Test Item Value Reference Range Interpretation Comments B/C Ratio (test code = B/C Ratio) 12 6-25 [facility]2016-01-13 13:28:00 Test Item Value Reference Range Interpretation Comments Alk Phos (test code = Alk Phos) 107 39-136 [facility]2016-01-13 13:28:00 Test Item Value Reference Range Interpretation Comments ALT (test code = ALT) 24 See_Comment [Auto mated message] The system which ge nerated this result transmit kuldip reference range : <=65. The reference range was not used to interpr et this result as abiodun l/abnormal. [facility]2016-01-13 13:28:00 Test Item Value Reference Range Interpretation Comments AST (test code = AST) 19 See_Comment [Auto mated message] The system which ge nerated this result transmit kuldip reference range : <=37. The reference range was not used to interpr et this result as abiodun l/abnormal. [place] 583986-01-13 13:28:00 Test Item Value Reference Range Interpretation Comments CO2 (test code = CO2) 24 24-32 [facility]2016-01-13 13:28:00 Test Item Value Reference Range Interpretation Comments Calcium Lvl (test code = Calcium Lvl) 9.5 8.5-10.5 [facility]2016-01-13 13:28:00 Test Item Value Reference Range Interpretation Comments Total Protein (test code = Total 8.4 6.4-8.4 Protein) [facility]2016-01-13 13:28:00 Test Item Value Reference Range Interpretation Comments BUN (test code = BUN) 9 7-22 [place] 583986-01-13 13:28:00 Test Item Value Reference Range Interpretation Comments Albumin Lvl (test code = Albumin Lvl) 3.0 3.5-5.0 [place] 583986-01-13 13:28:00 Test Item Value Reference Range Interpretation Comments Creatinine Lvl (test code = Creatinine 0.75 0.50-1.40 Lvl) [place] 583986-01-13 13:28:00 Test Item Value Reference Range Interpretation Comments Sodium Lvl (test code = Sodium Lvl) 139 135-145 [facility]2016-01-13 13:28:00 Test Item Value Reference Range Interpretation Comments Potassium Lvl (test code = Potassium 4.0 3.5-5.1 Lvl) [facility]2016-01-13 13:28:00 Test Item Value Reference Range Interpretation Comments Chloride Lvl (test code = Chloride Lvl) 104 95-109 [facility]2016-01-13 13:28:00 Test Item Value Reference Range Interpretation Comments Glucose Lvl (test code = Glucose Lvl) 118 70-99 [facility] CenterZbilouqGVASGNRZVM8056-88-07 13:28:00 Test Item Value Reference Range Interpretation Comments Hgb (test code = Hgb) 9.2 12.0-16.0 [facility] CenterNgtpeisRCNSQVMRKO0977-45-03 13:28:00 Test Item Value Reference Range Interpretation Comments MCV (test code = MCV) 71.0 80.0-98.0 [facility] CenterXphdrqiBPWKTBNZLX7161-40-82 13:28:00 Test Item Value Reference Range Interpretation Comments MCH (test code = MCH) 21.4 pg 27.0-31.0 [facility] CenterBszfqhySAFGNGVVEQ5319-67-22 13:28:00 Test Item Value Reference Range Interpretation Comments Platelet (test code = Platelet) 280 133-450 [place] 434026-01-13 13:28:00 Test Item Value Reference Range Interpretation Comments MPV (test code = MPV) 8.0 7.4-10.4 [facility] CenterTfpfiomMEKUSNDTIR0496-78-51 13:28:00 Test Item Value Reference Range Interpretation Comments RDW (test code = RDW) 18.0 11.5-14.5 [facility] CenterKsrbmulFLDCGBCCCD0817-27-48 13:28:00 Test Item Value Reference Range Interpretation Comments MCHC (test code = MCHC) 30.1 32.0-36.0 [facility] CenterQwbwstjMCMUYZCLZE7905-36-69 13:28:00 Test Item Value Reference Range Interpretation Comments WBC (test code = WBC) 9.0 3.7-10.4 [facility] CenterEvznukrNFNYNCEPNK3945-99-35 13:28:00 Test Item Value Reference Range Interpretation Comments RBC (test code = RBC) 4.30 4.20-5.40 [facility] CenterZtcdsfxJVAWNAULQX8602-34-59 13:28:00 Test Item Value Reference Range Interpretation Comments Hct (test code = Hct) 30.5 36.0-48.0 [facility] CenterHqqzahrKBUFTTCQUN8077-63-40 13:28:00 Test Item Value Reference Range Interpretation Comments Segs (test code = Segs) 84.7 45.0-75.0 [facility] CenterMayvygjBKLLCTNQIY8458-27-73 13:28:00 Test Item Value Reference Range Interpretation Comments Lymphocytes (test code = Lymphocytes) 9.4 20.0-40.0 [facility] CenterKyyfewxQUYSTGSRYJ5656-66-85 13:28:00 Test Item Value Reference Range Interpretation Comments Eosinophils # (test code 0.0 See_Comment [A utomated message] The = Eosinophils #) system whic h generated this result tra nsmitted reference range : <=0.5. The reference r nilam was not used to int erpret this result as normal/abnormal . [facility] CenterMrtpsrwXZLASVGYQU3227-97-22 13:28:00 Test Item Value Reference Range Interpretation Comments Lymphocytes # (test code = Lymphocytes 0.8 1.0-5.5 #) [facility] CenterNgpxptwIRQIBKUIGB3482-88-52 13:28:00 Test Item Value Reference Range Interpretation Comments Monocytes # (test code 0.5 See_Comment [Aut omated message] The = Monocytes #) system which generated this result tra nsmitted reference range : <=0.8. The reference r nilam was not used to int erpret this result as normal/abnormal . [facility] CenterOvlfhbwQZNRFZODGK2331-81-46 13:28:00 Test Item Value Reference Range Interpretation Comments Segs-Bands # (test code = Segs-Bands #) 7.6 1.5-8.1 [facility] CenterUxayxauCFSNNJCIUU4031-69-34 13:28:00 Test Item Value Reference Range Interpretation Comments Monocytes (test code = Monocytes) 5.4 2.0-12.0 [facility] CenterWgaxjbwTIMIJYOMQX5669-90-54 13:28:00 Test Item Value Reference Range Interpretation Comments Eosinophils (test code = 0.3 See_Comment [A utomated message] The Eosinophils) system which ge nerated this result tra nsmitted reference range : <=4.0. The reference r nilam was not used to int erpret this result as normal/abnormal . [facility] CenterQlxevynKBRZZWNGOT0455-67-02 13:28:00 Test Item Value Reference Range Interpretation Comments Basophils (test code = 0.2 See_Comment [Aut omated message] The Basophils) system which ge nerated this result tra nsmitted reference range : <=1.0. The reference r nilam was not used to int erpret this result as normal/abnormal . [facility] CenterZgvyinjTQMUQSVTAF6537-74-24 13:28:00 Test Item Value Reference Range Interpretation Comments Basophils # (test code 0.0 See_Comment [Aut omated message] The = Basophils #) system which generated this result tra nsmitted reference range : <=0.2. The reference r nilam was not used to int erpret this result as normal/abnormal . [facility] 20:27:00 Test Item Value Reference Range Interpretation Comments CK MB Index (test 0.4 See_Comment [Automate d message] The code = CK MB Index) system w [facility] generated this result transmit kuldip reference range : <=2.5. The reference range was not used to interpr et this result as abiodun l/abnormal. [facility] HospitalSiOnyx JUNKSNO0161-51-89 20:27:00 Test Item Value Reference Range Interpretation Comments CK MB (test code = CK MB) 0.6 0.5-3.6 [facility] 20:[facility] Test Item Value Reference Range Interpretation Comments Troponin-I (test code no gt See_Comment [Auto mated message] The = Troponin-I) system which g enerated this result transmit kuldip reference range : <=0.40. The reference r nilam was not used to interpr et this result as abiodun l/abnormal. [facility] [employer]2015-08-14 20:27:00 Test Item Value Reference Range Interpretation Comments Total CK (test code = Total CK) 136 12-191 [facility] 20:27:00 Test Item Value Reference Range Interpretation Comments CK MB Index (test 0.4 See_Comment [Automate d message] The code = CK MB Index) system w [employer] generated this result transmit kuldip reference range : <=2.5. The reference range was not used to interpr et this result as abiodun l/abnormal. [facility] [employer]2015-08-14 20:27:00 Test Item Value Reference Range Interpretation Comments CK MB (test code = CK MB) 0.6 0.5-3.6 [facility] [employer]2015-08-14 20:27:00 Test Item Value Reference Range Interpretation Comments Troponin-I (test code no gt See_Comment [Auto mated message] The = Troponin-I) system which g enerated this result transmit kuldip reference range : <=0.40. The reference r nilam was not used to interpr et this result as abiodun l/abnormal. [facility] [employer]2015-08-14 20:27:00 Test Item Value Reference Range Interpretation Comments Total CK (test code = Total CK) 136 12-191 [facility] [employer]2015-08-14 20:27:00 Test Item Value Reference Range Interpretation Comments CK MB Index (test 0.4 See_Comment [Automate d message] The code = CK MB Index) system w [employer] generated this result transmit kuldip reference range : <=2.5. The reference range was not used to interpr et this result as abiodun l/abnormal. [employer]2015-08-14 20:27:00 Test Item Value Reference Range Interpretation Comments CK MB (test code = CK MB) 0.6 0.5-3.6 [facility] [employer]2015-08-14 20:27:00 Test Item Value Reference Range Interpretation Comments Troponin-I (test code no gt See_Comment [Auto mated message] The = Troponin-I) system which g enerated this result transmit kuldip reference range : <=0.40. The reference r nilam was not used to interpr et this result as abiodun l/abnormal. [facility] [employer] [id number] 20:27:00 Test Item Value Reference Range Interpretation Comments Total CK (test code = Total CK) 136 12-191 [facility] CenterAmagi Media Labs [id number] 20:27:00 Test Item Value Reference Range Interpretation Comments CK MB Index (test 0.4 See_Comment [Automate d message] The code = CK MB Index) system w [employer] generated this result transmit kudlip reference range : <=2.5. The reference range was not used to interpr et this result as abiodun l/abnormal. [facility] [employer]2015-08-14 20:27:00 Test Item Value Reference Range Interpretation Comments CK MB (test code = CK MB) 0.6 0.5-3.6 [facility] [employer]2015-08-14 20:27:00 Test Item Value Reference Range Interpretation Comments Troponin-I (test code no gt See_Comment [Auto mated message] The = Troponin-I) system which g enerated this result transmit kuldip reference range : <=0.40. The reference r nilam was not used to interpr et this result as abiodun l/abnormal. [facility] [employer]2015-08-14 20:27:00 Test Item Value Reference Range Interpretation Comments Total CK (test code = Total CK) 136 12-191 [facility] [employer] [id number] 20:27:00 Test Item Value Reference Range Interpretation Comments CK MB Index (test 0.4 See_Comment [Automate d message] The code = CK MB Index) system w [employer] generated this result transmit kuldip reference range : <=2.5. The reference range was not used to interpr et this result as abiodun l/abnormal. [facility] [employer] [id number] 20:27:00 Test Item Value Reference Range Interpretation Comments CK MB (test code = CK MB) 0.6 0.5-3.6 [facility] [employer] [id number] 20:27:00 Test Item Value Reference Range Interpretation Comments Troponin-I (test code no gt See_Comment [Auto mated message] The = Troponin-I) system which g enerated this result transmit kuldip reference range : <=0.40. The reference r nilam was not used to interpr et this result as abiodun l/abnormal. [facility] [employer] [id number] 20:27:00 Test Item Value Reference Range Interpretation Comments Total CK (test code = Total CK) 136 12-191 [facility] CenterAmagi Media Labs [id number] 20:27:00 Test Item Value Reference Range Interpretation Comments CK MB Index (test 0.4 See_Comment [Automate d message] The code = CK MB Index) system w [employer] generated this result transmit kuldip reference range : <=2.5. The reference range was not used to interpr et this result as abiodun l/abnormal. [facility] [employer] [id number] 20:27:00 Test Item Value Reference Range Interpretation Comments CK MB (test code = CK MB) 0.6 0.5-3.6 [facility] [employer] [id number] 20:27:00 Test Item Value Reference Range Interpretation Comments Troponin-I (test code no gt See_Comment [Auto mated message] The = Troponin-I) system which g enerated this result transmit kuldip reference range : <=0.40. The reference r nilam was not used to interpr et this result as abiodun l/abnormal. [facility] [employer] [id number] 20:27:00 Test Item Value Reference Range Interpretation Comments Total CK (test code = Total CK) 136 12-191 [facility] [employer] [id number] 20:27:00 Test Item Value Reference Range Interpretation Comments CK MB Index (test 0.4 See_Comment [Automate d message] The code = CK MB Index) system w [employer] generated this result transmit kuldip reference range : <=2.5. The reference range was not used to interpr et this result as abiodun l/abnormal. [employer] [id number] 20:27:00 Test Item Value Reference Range Interpretation Comments CK MB (test code = CK MB) 0.6 0.5-3.6 [facility] [id number] 20:27:00 Test Item Value Reference Range Interpretation Comments Troponin-I (test code no gt See_Comment [Auto mated message] The = Troponin-I) system which g enerated this result transmit kuldip reference range : <=0.40. The reference r nilam was not used to interpr et this result as abiodun l/abnormal. [facility] HospitalGuarnicUOFL [facility] [id number] 20:27:00 Test Item Value Reference Range Interpretation Comments Total CK (test code = Total CK) 136 12-191 [facility]SzxbjjpWMIHPTAZSPGH7363-86-61 09:19:00 Test Item Value Reference Range Interpretation Comments Potassium Lvl (test code = Potassium 4.4 3.5-5.1 Lvl) [facility] RegionWenqurvGXNDYTJCYAOP1717-06-01 09:19:00 Test Item Value Reference Range Interpretation Comments Sodium Lvl (test code = Sodium Lvl) 139 135-145 [facility] RegionSkojqueNJZYNBJBNZKK5705-94-58 09:19:00 Test Item Value Reference Range Interpretation Comments Chloride Lvl (test code = Chloride Lvl) 107 95-109 [facility] RegionGbjgfxjXYHHSBBHOCGJ1344-04-15 09:19:00 Test Item Value Reference Range Interpretation Comments eGFR (test code = eGFR) 107 [facility] RegionWlkclgeQKKVFBULHLKI6122-57-08 09:19:00 Test Item Value Reference Range Interpretation Comments CO2 (test code = CO2) 20 24-32 [facility] RegionKciudbeFOWNEPCRSBVA3234-43-16 09:19:00 Test Item Value Reference Range Interpretation Comments Calcium Lvl (test code = Calcium Lvl) 9.5 8.5-10.5 [facility] RegionDjzakhiYSIRMKGTWHSL6933-71-92 09:19:00 Test Item Value Reference Range Interpretation Comments Total Protein (test code = Total 7.7 6.4-8.4 Protein) [facility] RegionDkzmroiYAPFHRFNHNBY4384-30-51 09:19:00 Test Item Value Reference Range Interpretation Comments Albumin Lvl (test code = Albumin Lvl) 2.9 3.5-5.0 [facility] RegionCooewqrZSQMOTABQHXJ3195-42-45 09:19:00 Test Item Value Reference Range Interpretation Comments ALT (test code = ALT) 21 See_Comment [Auto mated message] The system which ge nerated this result transmit kuldip reference range : <=65. The reference range was not used to interpr et this result as abiodun l/abnormal. [facility] RegionAczxjgoIBQFKXJWBAEP2030-24-70 09:19:00 Test Item Value Reference Range Interpretation Comments AST (test code = AST) 27 See_Comment [Auto mated message] The system which ge nerated this result transmit kuldip reference range : <=37. The reference range was not used to interpr et this result as abiodun l/abnormal. [facility]EdtwzhsNUXRHCBCOHQI4920-70-78 09:19:00 Test Item Value Reference Range Interpretation Comments Alk Phos (test code = Alk Phos) 81 39-136 [facility] RegionUalgusnNDWIDMJHXUXZ8763-84-83 09:19:00 Test Item Value Reference Range Interpretation Comments Bili Total (test code = Bili Total) 0.4 0.2-1.3 [facility] RegionTdxbgwjSZAJAKGQYEQZ1441-51-22 09:19:00 Test Item Value Reference Range Interpretation Comments Creatinine Lvl (test code = Creatinine 0.8 0.5-1.4 Lvl) [facility] RegionSukcdrtKWTECVYUHZJC8185-43-97 09:19:00 Test Item Value Reference Range Interpretation Comments Glucose Lvl (test code = Glucose Lvl) 88 70-99 [facility]VlfnarvJAYMFEIYYXDX0706-62-04 09:19:00 Test Item Value Reference Range Interpretation Comments BUN (test code = BUN) 7 7-22 [facility] RegionWomsaawJHGKFGKWTMQK9411-32-64 09:19:00 Test Item Value Reference Range Interpretation Comments AGAP (test code = AGAP) 16.4 10.0-20.0 [facility] RegionThfqjcjMUIFDTLWLEOG5673-23-79 09:19:00 Test Item Value Reference Range Interpretation Comments B/C Ratio (test code = B/C Ratio) 9 6-25 [facility] RegionJmtihlnQWMUNUJJFLYT9267-62-94 09:19:00 Test Item Value Reference Range Interpretation Comments Globulin (test code = Globulin) 4.8 2.0-4.0 [facility] RegionKcgvfpmAFYKIUCPEKCT9575-07-92 09:19:00 Test Item Value Reference Range Interpretation Comments A/G Ratio (test code = A/G Ratio) 0.6 0.7-1.6 [facility]OoryhyxGLONBZSGXZ6930-02-30 09:19:00 Test Item Value Reference Range Interpretation Comments Segs (test code = Segs) 54.4 45.0-75.0 [facility]MqwumnqWHRWCLXFZV6587-36-74 09:19:00 Test Item Value Reference Range Interpretation Comments Lymphocytes (test code = Lymphocytes) 31.6 20.0-40.0 [facility] CenterZmxrhjuOMIWISQZSG3785-23-93 09:19:00 Test Item Value Reference Range Interpretation Comments Basophils (test code = 0.9 See_Comment [Aut omated message] The Basophils) system which ge nerated this result tra nsmitted reference range : <=1.0. The reference r nilam was not used to int erpret this result as normal/abnormal . [facility] CenterPldijttOPITZJYLAD6060-48-67 09:19:00 Test Item Value Reference Range Interpretation Comments Segs-Bands # (test code = Segs-Bands #) 2.8 1.5-8.1 [facility] CenterStzgmwpPTZUTBGKPU5403-72-69 09:19:00 Test Item Value Reference Range Interpretation Comments Monocytes (test code = Monocytes) 10.8 2.0-12.0 [facility] CenterIdjrpvpPSEGVETZVO8006-75-09 09:19:00 Test Item Value Reference Range Interpretation Comments Eosinophils # (test code 0.1 See_Comment [A utomated message] The = Eosinophils #) system whic h generated this result tra nsmitted reference range : <=0.5. The reference r nilam was not used to int erpret this result as normal/abnormal . [facility] CenterHocmnrnKIFLJQQMNJ2957-78-50 09:19:00 Test Item Value Reference Range Interpretation Comments Eosinophils (test code = 2.3 See_Comment [A utomated message] The Eosinophils) system which ge nerated this result tra nsmitted reference range : <=4.0. The reference r nilam was not used to int erpret this result as normal/abnormal . [facility] CenterWxkiorkLHOEDPKZEN7757-76-87 09:19:00 Test Item Value Reference Range Interpretation Comments Microcyte (test code = 3+ *NA*(11/06/14 4:19 Microcyte) AM) [facility] CenterIhmwxeuFLKUGJXTNE7758-69-68 09:19:00 Test Item Value Reference Range Interpretation Comments Lymphocytes # (test code = Lymphocytes 1.6 1.0-5.5 #) [facility] CenterYiaczozNMMFYAZNZW8577-11-41 09:19:00 Test Item Value Reference Range Interpretation Comments Monocytes # (test code 0.6 See_Comment [Aut omated message] The = Monocytes #) system which generated this result tra nsmitted reference range : <=0.8. The reference r nilam was not used to int erpret this result as normal/abnormal . [facility] CenterPosqnojBFXIAKLVXD9101-21-58 09:19:00 Test Item Value Reference Range Interpretation Comments MCHC (test code = MCHC) 30.6 32.0-36.0 [facility] CenterRjjgbzwGACOXBSSAI2112-31-15 09:19:00 Test Item Value Reference Range Interpretation Comments MPV (test code = MPV) 8.2 7.4-10.4 [facility] CenterShrrcohPPCNSAQEHC1740-65-80 09:19:00 Test Item Value Reference Range Interpretation Comments RDW (test code = RDW) 17.5 11.5-14.5 [facility] CenterZuqqcluJUTAEEHMBV2583-09-42 09:19:00 Test Item Value Reference Range Interpretation Comments Platelet (test code = Platelet) 257 133-450 [facility] CenterVhfmsymJVETIJWPCW0340-36-21 09:19:00 Test Item Value Reference Range Interpretation Comments RBC (test code = RBC) 4.00 4.20-5.40 [facility] CenterXqhobkqRFNFJWTRVM6393-94-48 09:19:00 Test Item Value Reference Range Interpretation Comments Hgb (test code = Hgb) 8.4 12.0-16.0 [facility] CenterBpydsbeUBTLOSFTOG0908-33-93 09:19:00 Test Item Value Reference Range Interpretation Comments MCH (test code = MCH) 21.1 pg 27.0-31.0 [facility] CenterMckwnkrKMAVBOEUXS7733-09-61 09:19:00 Test Item Value Reference Range Interpretation Comments Hct (test code = Hct) 27.6 36.0-48.0 [facility] CenterZljhqbsEAXPSAQEON6715-97-14 09:19:00 Test Item Value Reference Range Interpretation Comments MCV (test code = MCV) 68.8 80.0-98.0 [facility] CenterQnuqmtvPFIFFFXOAG6257-45-09 09:19:00 Test Item Value Reference Range Interpretation Comments WBC (test code = WBC) 5.1 3.7-10.4 [facility] CenterJbltyodGLQZFCHSHTZT5514-06-36 09:19:00 Test Item Value Reference Range Interpretation Comments Potassium Lvl (test code = Potassium 4.4 3.5-5.1 Lvl) [facility] RegionOuzxnavMNPCQOCNPWPX7587-36-05 09:19:00 Test Item Value Reference Range Interpretation Comments Sodium Lvl (test code = Sodium Lvl) 139 135-145 [facility] RegionMziebwrSQHWLAORVKKF3180-07-79 09:19:00 Test Item Value Reference Range Interpretation Comments Chloride Lvl (test code = Chloride Lvl) 107 95-109 [facility] RegionQqtiraxWDALKWJYEPGM8801-55-58 09:19:00 Test Item Value Reference Range Interpretation Comments eGFR (test code = eGFR) 107 [facility] RegionBmmlrktOYWXVMLTZSGF3399-01-92 09:19:00 Test Item Value Reference Range Interpretation Comments CO2 (test code = CO2) 20 24-32 [facility] RegionLixipdhDQATWXRIPOMD5439-35-51 09:19:00 Test Item Value Reference Range Interpretation Comments Calcium Lvl (test code = Calcium Lvl) 9.5 8.5-10.5 [facility] RegionFtjvbtoGZRFWUNXZXAZ7299-45-05 09:19:00 Test Item Value Reference Range Interpretation Comments Total Protein (test code = Total 7.7 6.4-8.4 Protein) [facility] RegionHbcnxxdCIGJHMNMNOSH6424-76-82 09:19:00 Test Item Value Reference Range Interpretation Comments Albumin Lvl (test code = Albumin Lvl) 2.9 3.5-5.0 [facility] RegionHiipjltLSWVZZUBEBEF2049-86-66 09:19:00 Test Item Value Reference Range Interpretation Comments ALT (test code = ALT) 21 See_Comment [Auto mated message] The system which ge nerated this result transmit kuldip reference range : <=65. The reference range was not used to interpr et this result as abiodun l/abnormal. [facility] RegionJtqlzwvXHIHTQNGBRTW5551-92-98 09:19:00 Test Item Value Reference Range Interpretation Comments AST (test code = AST) 27 See_Comment [Auto mated message] The system which ge nerated this result transmit kuldip reference range : <=37. The reference range was not used to interpr et this result as abiodun l/abnormal. [facility] RegionSpmreyhUBFUWDGOVCZY4718-77-10 09:19:00 Test Item Value Reference Range Interpretation Comments Alk Phos (test code = Alk Phos) 81 39-136 [facility] RegionTabymkbYRLWFPSRTNMT3815-11-87 09:19:00 Test Item Value Reference Range Interpretation Comments Bili Total (test code = Bili Total) 0.4 0.2-1.3 [facility] RegionAlwkvgmTURTPCKVVAWA9220-95-25 09:19:00 Test Item Value Reference Range Interpretation Comments Creatinine Lvl (test code = Creatinine 0.8 0.5-1.4 Lvl) [facility] RegionLwjzxesEDWVDXOBYWUA9528-41-40 09:19:00 Test Item Value Reference Range Interpretation Comments Glucose Lvl (test code = Glucose Lvl) 88 70-99 [facility] RegionGwigcdeUFQBELUVFHYG6324-54-55 09:19:00 Test Item Value Reference Range Interpretation Comments BUN (test code = BUN) 7 7-22 [facility] RegionFdmmvlmPXQZDDRMUXVJ4859-32-43 09:19:00 Test Item Value Reference Range Interpretation Comments AGAP (test code = AGAP) 16.4 10.0-20.0 [facility] RegionFkxdltyMARZTWORZTBT9674-23-88 09:19:00 Test Item Value Reference Range Interpretation Comments B/C Ratio (test code = B/C Ratio) 9 6-25 [facility] RegionHvngaisTAWDKUIACHLE1452-18-65 09:19:00 Test Item Value Reference Range Interpretation Comments Globulin (test code = Globulin) 4.8 2.0-4.0 [facility] RegionIdvolyvKBLEMCVKLCHX9420-19-16 09:19:00 Test Item Value Reference Range Interpretation Comments A/G Ratio (test code = A/G Ratio) 0.6 0.7-1.6 [facility] CenterXdmzbhlINVWXHTQRF0310-87-74 09:19:00 Test Item Value Reference Range Interpretation Comments Segs (test code = Segs) 54.4 45.0-75.0 [facility] CenterBespmglMHEWMLGJXC2987-29-31 09:19:00 Test Item Value Reference Range Interpretation Comments Lymphocytes (test code = Lymphocytes) 31.6 20.0-40.0 [facility] CenterOblpervCWBTOBMZGO0981-17-93 09:19:00 Test Item Value Reference Range Interpretation Comments Basophils (test code = 0.9 See_Comment [Aut omated message] The Basophils) system which ge nerated this result tra nsmitted reference range : <=1.0. The reference r nilam was not used to int erpret this result as normal/abnormal . [facility] CenterVozvprpBSTLPIWOXI0918-53-96 09:19:00 Test Item Value Reference Range Interpretation Comments Segs-Bands # (test code = Segs-Bands #) 2.8 1.5-8.1 [facility] CenterKlhlqyoVWFKZAROEG0721-15-36 09:19:00 Test Item Value Reference Range Interpretation Comments Monocytes (test code = Monocytes) 10.8 2.0-12.0 [facility] CenterNwxmzgyTRRYSUDYLZ6109-02-37 09:19:00 Test Item Value Reference Range Interpretation Comments Eosinophils # (test code 0.1 See_Comment [A utomated message] The = Eosinophils #) system whic h generated this result tra nsmitted reference range : <=0.5. The reference r nilam was not used to int erpret this result as normal/abnormal . [facility] CenterVyxagqjEGXTVWGJUK4087-78-71 09:19:00 Test Item Value Reference Range Interpretation Comments Eosinophils (test code = 2.3 See_Comment [A utomated message] The Eosinophils) system which ge nerated this result tra nsmitted reference range : <=4.0. The reference r nilam was not used to int erpret this result as normal/abnormal . [facility] CenterAxivmgoMGTNMMFEDC6543-99-61 09:19:00 Test Item Value Reference Range Interpretation Comments Microcyte (test code = 3+ *NA*(11/06/14 4:19 Microcyte) AM) [facility] CenterRwvogdtXBOBIDGALH1217-39-63 09:19:00 Test Item Value Reference Range Interpretation Comments Lymphocytes # (test code = Lymphocytes 1.6 1.0-5.5 #) [facility] CenterGlxdcmmZFNBGRPLKR8242-05-25 09:19:00 Test Item Value Reference Range Interpretation Comments Monocytes # (test code 0.6 See_Comment [Aut omated message] The = Monocytes #) system which generated this result tra nsmitted reference range : <=0.8. The reference r nilam was not used to int erpret this result as normal/abnormal . [facility] CenterEmneswsMBMYZLTZBC3814-77-64 09:19:00 Test Item Value Reference Range Interpretation Comments MCHC (test code = MCHC) 30.6 32.0-36.0 [facility] CenterXeieoybVXEGCRYTPC3422-18-89 09:19:00 Test Item Value Reference Range Interpretation Comments MPV (test code = MPV) 8.2 7.4-10.4 [facility] CenterYxnlfhiTYSARZYHXT8968-39-15 09:19:00 Test Item Value Reference Range Interpretation Comments RDW (test code = RDW) 17.5 11.5-14.5 [facility] CenterNulrlhpDZNLTNHSWC6476-45-94 09:19:00 Test Item Value Reference Range Interpretation Comments Platelet (test code = Platelet) 257 133-450 [facility] CenterCynfxslIUFRTWEKLY6906-25-52 09:19:00 Test Item Value Reference Range Interpretation Comments RBC (test code = RBC) 4.00 4.20-5.40 [facility] CenterQpburvjZVFIWKMGVA1554-91-04 09:19:00 Test Item Value Reference Range Interpretation Comments Hgb (test code = Hgb) 8.4 12.0-16.0 [facility] CenterHvkayzuYPUXSYROKK2618-67-18 09:19:00 Test Item Value Reference Range Interpretation Comments MCH (test code = MCH) 21.1 pg 27.0-31.0 [facility] CenterKjiejuuJKXGAPGVDJ1842-10-91 09:19:00 Test Item Value Reference Range Interpretation Comments Hct (test code = Hct) 27.6 36.0-48.0 [facility] CenterLqunlrmNJFJHGJPQH1932-01-68 09:19:00 Test Item Value Reference Range Interpretation Comments MCV (test code = MCV) 68.8 80.0-98.0 [facility] CenterOybvcbnYZGMSKBAFC1682-11-07 09:19:00 Test Item Value Reference Range Interpretation Comments WBC (test code = WBC) 5.1 3.7-10.4 [facility] RegionMersmzvURVBAXBTDIPD5311-31-95 09:19:00 Test Item Value Reference Range Interpretation Comments Potassium Lvl (test code = Potassium 4.4 3.5-5.1 Lvl) [facility] RegionFrylzlzCVGYKKUYNMXE6810-64-69 09:19:00 Test Item Value Reference Range Interpretation Comments Sodium Lvl (test code = Sodium Lvl) 139 135-145 [facility] RegionNfunqewCDRZUPKOBMRO6001-73-95 09:19:00 Test Item Value Reference Range Interpretation Comments Chloride Lvl (test code = Chloride Lvl) 107 95-109 [facility] RegionPlmclxuLONSDIHSIFNJ3727-21-79 09:19:00 Test Item Value Reference Range Interpretation Comments eGFR (test code = eGFR) 107 [facility] RegionWcuuaepMMUNNIQFJXOZ8370-47-46 09:19:00 Test Item Value Reference Range Interpretation Comments CO2 (test code = CO2) 20 24-32 [facility] RegionIhemaogEYDMOGXUQITP3667-91-22 09:19:00 Test Item Value Reference Range Interpretation Comments Calcium Lvl (test code = Calcium Lvl) 9.5 8.5-10.5 [facility] RegionUfuygkyPRMTALHVLXPB9656-08-99 09:19:00 Test Item Value Reference Range Interpretation Comments Total Protein (test code = Total 7.7 6.4-8.4 Protein) [facility] RegionIpbecqhUIHKPKKEFVNI1160-92-26 09:19:00 Test Item Value Reference Range Interpretation Comments Albumin Lvl (test code = Albumin Lvl) 2.9 3.5-5.0 [facility] RegionOfzjfglPQQLPKKGICCK8103-87-23 09:19:00 Test Item Value Reference Range Interpretation Comments ALT (test code = ALT) 21 See_Comment [Auto mated message] The system which ge nerated this result transmit kuldip reference range : <=65. The reference range was not used to interpr et this result as abiodun l/abnormal. [facility] RegionHelovnqRUTOLCNKXIPI7126-44-06 09:19:00 Test Item Value Reference Range Interpretation Comments AST (test code = AST) 27 See_Comment [Auto mated message] The system which ge nerated this result transmit kuldip reference range : <=37. The reference range was not used to interpr et this result as abiodun l/abnormal. [facility] RegionDbnsfzsVQYTMKYRJEFP8856-30-84 09:19:00 Test Item Value Reference Range Interpretation Comments Alk Phos (test code = Alk Phos) 81 39-136 [facility] RegionOfrfyerWKUDGPRUXGPQ4735-53-51 09:19:00 Test Item Value Reference Range Interpretation Comments Bili Total (test code = Bili Total) 0.4 0.2-1.3 [facility] RegionAwdjuwtDTFRGGCCYPHF0787-99-79 09:19:00 Test Item Value Reference Range Interpretation Comments Creatinine Lvl (test code = Creatinine 0.8 0.5-1.4 Lvl) [facility] RegionMptyghmURHEOXCDNRNN7009-09-45 09:19:00 Test Item Value Reference Range Interpretation Comments Glucose Lvl (test code = Glucose Lvl) 88 70-99 [facility] RegionMtahusqWQVAHXPIKTCO9243-01-26 09:19:00 Test Item Value Reference Range Interpretation Comments BUN (test code = BUN) 7 7-22 [facility] RegionRyxqnclZZIYSNWRKWTV8250-17-52 09:19:00 Test Item Value Reference Range Interpretation Comments AGAP (test code = AGAP) 16.4 10.0-20.0 [facility] RegionZuifjfuUGIBCGJUSKAC6441-49-39 09:19:00 Test Item Value Reference Range Interpretation Comments B/C Ratio (test code = B/C Ratio) 9 6-25 [facility] RegionKiucgxhAGSAYQSLQQOV3793-40-36 09:19:00 Test Item Value Reference Range Interpretation Comments Globulin (test code = Globulin) 4.8 2.0-4.0 [facility] RegionVcbjmdfOUQGWOIRUGFV8261-67-62 09:19:00 Test Item Value Reference Range Interpretation Comments A/G Ratio (test code = A/G Ratio) 0.6 0.7-1.6 [facility] CenterPdplpkrZEHOLGVRJL9995-06-82 09:19:00 Test Item Value Reference Range Interpretation Comments Segs (test code = Segs) 54.4 45.0-75.0 [facility] CenterRblvmrgGEELQFZEFB9542-48-27 09:19:00 Test Item Value Reference Range Interpretation Comments Lymphocytes (test code = Lymphocytes) 31.6 20.0-40.0 [facility] CenterTnhusvwICUFQXESVP4268-84-15 09:19:00 Test Item Value Reference Range Interpretation Comments Basophils (test code = 0.9 See_Comment [Aut omated message] The Basophils) system which ge nerated this result tra nsmitted reference range : <=1.0. The reference r nilam was not used to int erpret this result as normal/abnormal . [facility] CenterEmnezgkSLAUPIKOTN5030-55-45 09:19:00 Test Item Value Reference Range Interpretation Comments Segs-Bands # (test code = Segs-Bands #) 2.8 1.5-8.1 [facility] CenterUuamswfTWXFIXOMBQ3641-92-25 09:19:00 Test Item Value Reference Range Interpretation Comments Monocytes (test code = Monocytes) 10.8 2.0-12.0 [facility] CenterIfosvjsEMPIZCSGAQ6669-71-95 09:19:00 Test Item Value Reference Range Interpretation Comments Eosinophils # (test code 0.1 See_Comment [A utomated message] The = Eosinophils #) system whic h generated this result tra nsmitted reference range : <=0.5. The reference r nilam was not used to int erpret this result as normal/abnormal . [facility] CenterRxpcrgqHZZPAVCHRS5999-55-95 09:19:00 Test Item Value Reference Range Interpretation Comments Eosinophils (test code = 2.3 See_Comment [A utomated message] The Eosinophils) system which ge nerated this result tra nsmitted reference range : <=4.0. The reference r nilam was not used to int erpret this result as normal/abnormal . [facility] CenterIthvnldFKBTZJKCKA7286-62-70 09:19:00 Test Item Value Reference Range Interpretation Comments Microcyte (test code = 3+ *NA*(11/06/14 4:19 Microcyte) AM) [facility] CenterHaftfmkQGRPBAREBV4770-20-70 09:19:00 Test Item Value Reference Range Interpretation Comments Lymphocytes # (test code = Lymphocytes 1.6 1.0-5.5 #) [facility] CenterClasdmsJURORFFWUX3914-22-33 09:19:00 Test Item Value Reference Range Interpretation Comments Monocytes # (test code 0.6 See_Comment [Aut omated message] The = Monocytes #) system which generated this result tra nsmitted reference range : <=0.8. The reference r nilam was not used to int erpret this result as normal/abnormal . [facility] CenterPwxzfnlAYQDIZSACG0800-45-63 09:19:00 Test Item Value Reference Range Interpretation Comments MCHC (test code = MCHC) 30.6 32.0-36.0 [facility] CenterMniakstHYVRCIDGTS0067-42-24 09:19:00 Test Item Value Reference Range Interpretation Comments MPV (test code = MPV) 8.2 7.4-10.4 [facility] CenterFuvcjxrWWXTFCWOCW3991-94-63 09:19:00 Test Item Value Reference Range Interpretation Comments RDW (test code = RDW) 17.5 11.5-14.5 [facility] CenterChrtlxgMFVEAYWEQE9336-34-48 09:19:00 Test Item Value Reference Range Interpretation Comments Platelet (test code = Platelet) 257 133-450 [facility] CenterNhoosglWDFWNOGTKY9473-81-53 09:19:00 Test Item Value Reference Range Interpretation Comments RBC (test code = RBC) 4.00 4.20-5.40 [facility] CenterWoxbabrOWKSOQKWJW2388-69-48 09:19:00 Test Item Value Reference Range Interpretation Comments Hgb (test code = Hgb) 8.4 12.0-16.0 [facility] CenterQbtiqelMFNAODGQFU8365-95-67 09:19:00 Test Item Value Reference Range Interpretation Comments MCH (test code = MCH) 21.1 pg 27.0-31.0 [facility] CenterGajnhaaCJVYNOPKSX7489-98-12 09:19:00 Test Item Value Reference Range Interpretation Comments Hct (test code = Hct) 27.6 36.0-48.0 [facility] CenterVbazdziAIJENXCYTL5457-97-83 09:19:00 Test Item Value Reference Range Interpretation Comments MCV (test code = MCV) 68.8 80.0-98.0 [facility] CenterFqobmwrKQGFQLWQRK6610-03-92 09:19:00 Test Item Value Reference Range Interpretation Comments WBC (test code = WBC) 5.1 3.7-10.4 [facility] RegionAqeujbiYIAERVNGSIQT0338-61-21 09:19:00 Test Item Value Reference Range Interpretation Comments Potassium Lvl (test code = Potassium 4.4 3.5-5.1 Lvl) [facility] RegionOnpeniaAESYKQZURINA2343-80-77 09:19:00 Test Item Value Reference Range Interpretation Comments Sodium Lvl (test code = Sodium Lvl) 139 135-145 [facility] RegionVdbslzkIIGHOXSHEPGB1061-01-81 09:19:00 Test Item Value Reference Range Interpretation Comments Chloride Lvl (test code = Chloride Lvl) 107 95-109 [facility] RegionLmxhomeWRPXSUHMBGJQ2520-57-82 09:19:00 Test Item Value Reference Range Interpretation Comments eGFR (test code = eGFR) 107 [facility] RegionUqfgctiFBSAERXYHJYI1690-82-48 09:19:00 Test Item Value Reference Range Interpretation Comments CO2 (test code = CO2) 20 24-32 [facility] RegionRsdkttlJCDKWZZMQPZB5105-23-74 09:19:00 Test Item Value Reference Range Interpretation Comments Calcium Lvl (test code = Calcium Lvl) 9.5 8.5-10.5 [facility] RegionHbkrcveLKHCVTHWFHPZ7987-75-25 09:19:00 Test Item Value Reference Range Interpretation Comments Total Protein (test code = Total 7.7 6.4-8.4 Protein) [facility] RegionIqstmoeVTBJYLJEPVGF3131-53-26 09:19:00 Test Item Value Reference Range Interpretation Comments Albumin Lvl (test code = Albumin Lvl) 2.9 3.5-5.0 [facility] RegionSuzmifzWWKAXPMVFCWK3352-25-43 09:19:00 Test Item Value Reference Range Interpretation Comments ALT (test code = ALT) 21 See_Comment [Auto mated message] The system which ge nerated this result transmit kuldip reference range : <=65. The reference range was not used to interpr et this result as abiodun l/abnormal. [facility] RegionLlygrrjPRXIARGORJHE8671-18-06 09:19:00 Test Item Value Reference Range Interpretation Comments AST (test code = AST) 27 See_Comment [Auto mated message] The system which ge nerated this result transmit kuldip reference range : <=37. The reference range was not used to interpr et this result as abiodun l/abnormal. [facility] RegionLrusrmsKXIWVUGHYUNO6609-40-11 09:19:00 Test Item Value Reference Range Interpretation Comments Alk Phos (test code = Alk Phos) 81 39-136 [facility] RegionTqzcgqgNZYQXALCMNMC6625-10-01 09:19:00 Test Item Value Reference Range Interpretation Comments Bili Total (test code = Bili Total) 0.4 0.2-1.3 [facility] RegionIfpgjiiQUEJXMWQZVPC1438-11-63 09:19:00 Test Item Value Reference Range Interpretation Comments Creatinine Lvl (test code = Creatinine 0.8 0.5-1.4 Lvl) [facility] RegionWrpvxrdQJKOXHDRRSZN4717-96-54 09:19:00 Test Item Value Reference Range Interpretation Comments Glucose Lvl (test code = Glucose Lvl) 88 70-99 [facility] RegionIdbegomWUHYCTAZYVEU4371-54-75 09:19:00 Test Item Value Reference Range Interpretation Comments BUN (test code = BUN) 7 7-22 [facility] RegionJwexeoeDDYGNFDFNIAZ2494-65-89 09:19:00 Test Item Value Reference Range Interpretation Comments AGAP (test code = AGAP) 16.4 10.0-20.0 [facility] RegionLglvfdwUGERPMWKBVZX0874-80-61 09:19:00 Test Item Value Reference Range Interpretation Comments B/C Ratio (test code = B/C Ratio) 9 6-25 [facility] RegionEmwaoaxIAJBIELUMGKU2724-51-38 09:19:00 Test Item Value Reference Range Interpretation Comments Globulin (test code = Globulin) 4.8 2.0-4.0 [facility] RegionKbnubyqAFBGUOFKJMZQ7721-62-81 09:19:00 Test Item Value Reference Range Interpretation Comments A/G Ratio (test code = A/G Ratio) 0.6 0.7-1.6 [facility] CenterRrwrotrEHAHWYQZGV0260-24-92 09:19:00 Test Item Value Reference Range Interpretation Comments Segs (test code = Segs) 54.4 45.0-75.0 [facility] CenterHaihnkjRGNQVIHHZE8936-12-46 09:19:00 Test Item Value Reference Range Interpretation Comments Lymphocytes (test code = Lymphocytes) 31.6 20.0-40.0 [facility] CenterNqnbchuFJZNIZRGEO9944-05-88 09:19:00 Test Item Value Reference Range Interpretation Comments Basophils (test code = 0.9 See_Comment [Aut omated message] The Basophils) system which ge nerated this result tra nsmitted reference range : <=1.0. The reference r nilam was not used to int erpret this result as normal/abnormal . [facility] CenterUfnjksqDBSKDNZLQF3859-08-56 09:19:00 Test Item Value Reference Range Interpretation Comments Segs-Bands # (test code = Segs-Bands #) 2.8 1.5-8.1 [facility] CenterBlftfdzTUKEZFOETG8142-39-74 09:19:00 Test Item Value Reference Range Interpretation Comments Monocytes (test code = Monocytes) 10.8 2.0-12.0 [facility] CenterBdnotkjYJBXZTHMEV5309-44-03 09:19:00 Test Item Value Reference Range Interpretation Comments Eosinophils # (test code 0.1 See_Comment [A utomated message] The = Eosinophils #) system whic h generated this result tra nsmitted reference range : <=0.5. The reference r nilam was not used to int erpret this result as normal/abnormal . [facility] CenterFaccusjUDJEAFEOZS8804-08-97 09:19:00 Test Item Value Reference Range Interpretation Comments Eosinophils (test code = 2.3 See_Comment [A utomated message] The Eosinophils) system which ge nerated this result tra nsmitted reference range : <=4.0. The reference r nialm was not used to int erpret this result as normal/abnormal . [facility] CenterYdtqbkwDFFXYJOXRS7377-51-30 09:19:00 Test Item Value Reference Range Interpretation Comments Microcyte (test code = 3+ *NA*(11/06/14 4:19 Microcyte) AM) [facility] CenterRxyskavKQIRIUPYKQ2109-97-84 09:19:00 Test Item Value Reference Range Interpretation Comments Lymphocytes # (test code = Lymphocytes 1.6 1.0-5.5 #) [facility] CenterLzuvhcnKCCIQCDHAG1066-15-00 09:19:00 Test Item Value Reference Range Interpretation Comments Monocytes # (test code 0.6 See_Comment [Aut omated message] The = Monocytes #) system which generated this result tra nsmitted reference range : <=0.8. The reference r nilam was not used to int erpret this result as normal/abnormal . [facility] CenterJnqjhfmHGMOYGSXET4402-33-37 09:19:00 Test Item Value Reference Range Interpretation Comments MCHC (test code = MCHC) 30.6 32.0-36.0 [facility] CenterQrknzazARTZZGNUCX3853-09-53 09:19:00 Test Item Value Reference Range Interpretation Comments MPV (test code = MPV) 8.2 7.4-10.4 [facility] CenterQbmnnlhJXNFRNOVOC5295-84-75 09:19:00 Test Item Value Reference Range Interpretation Comments RDW (test code = RDW) 17.5 11.5-14.5 [facility] CenterKjfmneoVSUWNZTOLC4475-85-96 09:19:00 Test Item Value Reference Range Interpretation Comments Platelet (test code = Platelet) 257 133-450 [facility] CenterWkoyqyjQAUXLZZTIR0443-00-44 09:19:00 Test Item Value Reference Range Interpretation Comments RBC (test code = RBC) 4.00 4.20-5.40 [facility] CenterTrgoediSPXRMVWREY8937-76-64 09:19:00 Test Item Value Reference Range Interpretation Comments Hgb (test code = Hgb) 8.4 12.0-16.0 [facility] CenterFjljvnpNJDIRUFCLF2560-80-78 09:19:00 Test Item Value Reference Range Interpretation Comments MCH (test code = MCH) 21.1 pg 27.0-31.0 [facility] CenterLxnyvgjBYCXTOHHCX5354-72-84 09:19:00 Test Item Value Reference Range Interpretation Comments Hct (test code = Hct) 27.6 36.0-48.0 [facility] CenterEknedrrULSFKDVGTM6810-55-47 09:19:00 Test Item Value Reference Range Interpretation Comments MCV (test code = MCV) 68.8 80.0-98.0 [facility] CenterEdurfxcUDFFWNGVEM2901-90-49 09:19:00 Test Item Value Reference Range Interpretation Comments WBC (test code = WBC) 5.1 3.7-10.4 [facility]XdiotvyUFEZLIXSOGLP5629-68-58 09:19:00 Test Item Value Reference Range Interpretation Comments Potassium Lvl (test code = Potassium 4.4 3.5-5.1 Lvl) [facility] RegionYwukxzkFVYLBWFIXVDW5160-37-65 09:19:00 Test Item Value Reference Range Interpretation Comments Sodium Lvl (test code = Sodium Lvl) 139 135-145 [facility] RegionXjvxnuhODQSCBQYZSRW5883-25-20 09:19:00 Test Item Value Reference Range Interpretation Comments Chloride Lvl (test code = Chloride Lvl) 107 95-109 [facility] RegionUldxbtyIRCHNMUQZIGF5179-08-67 09:19:00 Test Item Value Reference Range Interpretation Comments eGFR (test code = eGFR) 107 [facility] RegionXwzkdvvKZEXCIQKWMNS9044-06-95 09:19:00 Test Item Value Reference Range Interpretation Comments CO2 (test code = CO2) 20 24-32 [facility] RegionBkwtiepCKQVSTYXLCLD8963-04-64 09:19:00 Test Item Value Reference Range Interpretation Comments Calcium Lvl (test code = Calcium Lvl) 9.5 8.5-10.5 [facility] RegionRitqpqnQEKPITYHHXLF0587-61-21 09:19:00 Test Item Value Reference Range Interpretation Comments Total Protein (test code = Total 7.7 6.4-8.4 Protein) [facility] RegionWkiadlaJKNWDSYXQCIE8288-77-96 09:19:00 Test Item Value Reference Range Interpretation Comments Albumin Lvl (test code = Albumin Lvl) 2.9 3.5-5.0 [facility] RegionAyvkpxpISTJLFKIVYJI6289-55-12 09:19:00 Test Item Value Reference Range Interpretation Comments ALT (test code = ALT) 21 See_Comment [Auto mated message] The system which ge nerated this result transmit kuldip reference range : <=65. The reference range was not used to interpr et this result as abiodun l/abnormal. [facility] RegionFatubkwJEVMVWNBHZEP0405-19-18 09:19:00 Test Item Value Reference Range Interpretation Comments AST (test code = AST) 27 See_Comment [Auto mated message] The system which ge nerated this result transmit kuldip reference range : <=37. The reference range was not used to interpr et this result as abiodun l/abnormal. [facility] RegionFchplroXOVYNPWQRZLR8483-06-74 09:19:00 Test Item Value Reference Range Interpretation Comments Alk Phos (test code = Alk Phos) 81 39-136 [facility] RegionTqdcfkmWSRCUKWXQTZE9044-52-57 09:19:00 Test Item Value Reference Range Interpretation Comments Bili Total (test code = Bili Total) 0.4 0.2-1.3 [facility] RegionUdfhizwKPEQKQOGUZMC2716-81-57 09:19:00 Test Item Value Reference Range Interpretation Comments Creatinine Lvl (test code = Creatinine 0.8 0.5-1.4 Lvl) [facility] RegionBzhuqlfJDVAQCELWYZQ7954-03-88 09:19:00 Test Item Value Reference Range Interpretation Comments Glucose Lvl (test code = Glucose Lvl) 88 70-99 [facility] RegionPiujvaeHGMDMWTJYYVA3752-16-11 09:19:00 Test Item Value Reference Range Interpretation Comments BUN (test code = BUN) 7 7-22 [facility] RegionZjdybonATFRRMOCXANR3275-35-44 09:19:00 Test Item Value Reference Range Interpretation Comments AGAP (test code = AGAP) 16.4 10.0-20.0 [facility] RegionQfoozhpTSVCGLCMVSAG1288-10-26 09:19:00 Test Item Value Reference Range Interpretation Comments B/C Ratio (test code = B/C Ratio) 9 6-25 [facility] RegionGecgkmjQXVSBFKTONAB6781-89-10 09:19:00 Test Item Value Reference Range Interpretation Comments Globulin (test code = Globulin) 4.8 2.0-4.0 [facility] RegionOpngobnWUDDKODHBEKH5076-73-39 09:19:00 Test Item Value Reference Range Interpretation Comments A/G Ratio (test code = A/G Ratio) 0.6 0.7-1.6 [facility] CenterRfvpibxYYJTLRTDTY3912-14-66 09:19:00 Test Item Value Reference Range Interpretation Comments Segs (test code = Segs) 54.4 45.0-75.0 [facility] CenterCwbtppqKNTFBAAHJS9148-69-89 09:19:00 Test Item Value Reference Range Interpretation Comments Lymphocytes (test code = Lymphocytes) 31.6 20.0-40.0 [facility] CenterUuorbzmVWDNFDFFHA1133-24-03 09:19:00 Test Item Value Reference Range Interpretation Comments Basophils (test code = 0.9 See_Comment [Aut omated message] The Basophils) system which ge nerated this result tra nsmitted reference range : <=1.0. The reference r nilam was not used to int erpret this result as normal/abnormal . [facility] CenterPeojzhcYACDCWBCYZ0374-40-00 09:19:00 Test Item Value Reference Range Interpretation Comments Segs-Bands # (test code = Segs-Bands #) 2.8 1.5-8.1 [facility] CenterKzveledJHBSXKXASW3768-69-53 09:19:00 Test Item Value Reference Range Interpretation Comments Monocytes (test code = Monocytes) 10.8 2.0-12.0 [facility] CenterBxpzgjyPUYUEGGRXE4404-18-24 09:19:00 Test Item Value Reference Range Interpretation Comments Eosinophils # (test code 0.1 See_Comment [A utomated message] The = Eosinophils #) system whic h generated this result tra nsmitted reference range : <=0.5. The reference r nilam was not used to int erpret this result as normal/abnormal . [facility] CenterWipuiqpCPQJYOPEJI7749-21-69 09:19:00 Test Item Value Reference Range Interpretation Comments Eosinophils (test code = 2.3 See_Comment [A utomated message] The Eosinophils) system which ge nerated this result tra nsmitted reference range : <=4.0. The reference r nilam was not used to int erpret this result as normal/abnormal . [facility] CenterQmlpkqrVEOLCZSNQS3896-31-01 09:19:00 Test Item Value Reference Range Interpretation Comments Microcyte (test code = 3+ *NA*(11/06/14 4:19 Microcyte) AM) [facility] CenterYoqgplnWEARKVXKGQ3017-07-53 09:19:00 Test Item Value Reference Range Interpretation Comments Lymphocytes # (test code = Lymphocytes 1.6 1.0-5.5 #) [facility] CenterRisfefwQBPCELYJSS0149-32-15 09:19:00 Test Item Value Reference Range Interpretation Comments Monocytes # (test code 0.6 See_Comment [Aut omated message] The = Monocytes #) system which generated this result tra nsmitted reference range : <=0.8. The reference r nilam was not used to int erpret this result as normal/abnormal . [facility] CenterIcqqiwaKYMNPDSUNJ7809-33-29 09:19:00 Test Item Value Reference Range Interpretation Comments MCHC (test code = MCHC) 30.6 32.0-36.0 [facility] CenterYaqbbnkTMDQLKDIEI9747-73-73 09:19:00 Test Item Value Reference Range Interpretation Comments MPV (test code = MPV) 8.2 7.4-10.4 [facility] CenterHxidbhkCFXNIKXOPE7992-02-91 09:19:00 Test Item Value Reference Range Interpretation Comments RDW (test code = RDW) 17.5 11.5-14.5 [facility] CenterDfgjvetAIMKYQTDNY0862-30-40 09:19:00 Test Item Value Reference Range Interpretation Comments Platelet (test code = Platelet) 257 133-450 [facility] CenterTjckzykTPAZWYEOXX0262-85-30 09:19:00 Test Item Value Reference Range Interpretation Comments RBC (test code = RBC) 4.00 4.20-5.40 [facility] CenterRsovyjvHUAFTVPJMR2903-99-26 09:19:00 Test Item Value Reference Range Interpretation Comments Hgb (test code = Hgb) 8.4 12.0-16.0 [facility] CenterJgshtbjIYCISAAKNJ4768-79-10 09:19:00 Test Item Value Reference Range Interpretation Comments MCH (test code = MCH) 21.1 pg 27.0-31.0 [facility] CenterZmawlknXAGHGCNULA7252-71-10 09:19:00 Test Item Value Reference Range Interpretation Comments Hct (test code = Hct) 27.6 36.0-48.0 [facility] CenterOjajkldUJWEUDKCZV3203-33-64 09:19:00 Test Item Value Reference Range Interpretation Comments MCV (test code = MCV) 68.8 80.0-98.0 [facility] CenterZarscsqQVGZWTSNKP5682-05-09 09:19:00 Test Item Value Reference Range Interpretation Comments WBC (test code = WBC) 5.1 3.7-10.4 [facility] RegionGetwxooSDQMOHYOXREM7088-95-25 09:19:00 Test Item Value Reference Range Interpretation Comments Potassium Lvl (test code = Potassium 4.4 3.5-5.1 Lvl) [facility] RegionDilzvxbLZBLPEKRHUVB5059-35-83 09:19:00 Test Item Value Reference Range Interpretation Comments Sodium Lvl (test code = Sodium Lvl) 139 135-145 [facility] RegionZxjnafdYSNCJERZREMP8557-62-09 09:19:00 Test Item Value Reference Range Interpretation Comments Chloride Lvl (test code = Chloride Lvl) 107 95-109 [facility] RegionEavianiUDYTOETQTTQW8667-05-16 09:19:00 Test Item Value Reference Range Interpretation Comments eGFR (test code = eGFR) 107 [facility] RegionFsofckgHFPANWBTSCOW1625-80-90 09:19:00 Test Item Value Reference Range Interpretation Comments CO2 (test code = CO2) 20 24-32 [facility] RegionRhuajryYSYTOHVPGGBQ6477-26-82 09:19:00 Test Item Value Reference Range Interpretation Comments Calcium Lvl (test code = Calcium Lvl) 9.5 8.5-10.5 [facility] RegionRhqpzjvCVJVOCJHTMXP3069-44-05 09:19:00 Test Item Value Reference Range Interpretation Comments Total Protein (test code = Total 7.7 6.4-8.4 Protein) [facility] RegionKxeftdcTVJEWJXBPLEQ0868-52-53 09:19:00 Test Item Value Reference Range Interpretation Comments Albumin Lvl (test code = Albumin Lvl) 2.9 3.5-5.0 [facility] RegionZzaumshPCWFGXASQAAJ8177-45-30 09:19:00 Test Item Value Reference Range Interpretation Comments ALT (test code = ALT) 21 See_Comment [Auto mated message] The system which ge nerated this result transmit kuldip reference range : <=65. The reference range was not used to interpr et this result as abiodun l/abnormal. [facility] RegionYrkvnseJITNUZIUYSSN9789-58-87 09:19:00 Test Item Value Reference Range Interpretation Comments AST (test code = AST) 27 See_Comment [Auto mated message] The system which ge nerated this result transmit kudlip reference range : <=37. The reference range was not used to interpr et this result as abiodun l/abnormal. [facility] RegionZcollphFTIHKCTYKYJT5323-96-80 09:19:00 Test Item Value Reference Range Interpretation Comments Alk Phos (test code = Alk Phos) 81 39-136 [facility] RegionRvtnqmtABFSEEZRCNVT6922-18-25 09:19:00 Test Item Value Reference Range Interpretation Comments Bili Total (test code = Bili Total) 0.4 0.2-1.3 [facility] RegionNgvdgrxUYWEKYLRSKJJ7129-09-23 09:19:00 Test Item Value Reference Range Interpretation Comments Creatinine Lvl (test code = Creatinine 0.8 0.5-1.4 Lvl) [facility] RegionRavspnzJRWOFMDBHMQI3342-61-21 09:19:00 Test Item Value Reference Range Interpretation Comments Glucose Lvl (test code = Glucose Lvl) 88 70-99 [facility] RegionPjjvxioZBPKAJCVZMAK3655-47-13 09:19:00 Test Item Value Reference Range Interpretation Comments BUN (test code = BUN) 7 7-22 [facility] RegionOdoqawgFCVBJDRJFXSA2889-16-58 09:19:00 Test Item Value Reference Range Interpretation Comments AGAP (test code = AGAP) 16.4 10.0-20.0 [facility] RegionZmaibjlNPFWYVRJCDZX0429-08-64 09:19:00 Test Item Value Reference Range Interpretation Comments B/C Ratio (test code = B/C Ratio) 9 6-25 [facility] RegionIevvqetUQPNHGBQTYEM4274-98-35 09:19:00 Test Item Value Reference Range Interpretation Comments Globulin (test code = Globulin) 4.8 2.0-4.0 [facility] RegionXovhxhnWHGJTEKBGXRJ3872-98-68 09:19:00 Test Item Value Reference Range Interpretation Comments A/G Ratio (test code = A/G Ratio) 0.6 0.7-1.6 [facility] CenterNmbogheLDLYOJBQXV8040-12-14 09:19:00 Test Item Value Reference Range Interpretation Comments Segs (test code = Segs) 54.4 45.0-75.0 [facility] CenterIyrlpauFSIKUHCFYJ0290-28-51 09:19:00 Test Item Value Reference Range Interpretation Comments Lymphocytes (test code = Lymphocytes) 31.6 20.0-40.0 [facility] CenterFshqbyfLOKIMKMFIG3792-95-74 09:19:00 Test Item Value Reference Range Interpretation Comments Basophils (test code = 0.9 See_Comment [Aut omated message] The Basophils) system which ge nerated this result tra nsmitted reference range : <=1.0. The reference r nilam was not used to int erpret this result as normal/abnormal . [facility] CenterGrhqpoiNNOVLRPFGI1974-96-70 09:19:00 Test Item Value Reference Range Interpretation Comments Segs-Bands # (test code = Segs-Bands #) 2.8 1.5-8.1 [facility] CenterDnhjcdbHPELZAJBUE7877-88-52 09:19:00 Test Item Value Reference Range Interpretation Comments Monocytes (test code = Monocytes) 10.8 2.0-12.0 [facility] CenterAucdmodXZZXCFGZLU1073-76-15 09:19:00 Test Item Value Reference Range Interpretation Comments Eosinophils # (test code 0.1 See_Comment [A utomated message] The = Eosinophils #) system whic h generated this result tra nsmitted reference range : <=0.5. The reference r nilam was not used to int erpret this result as normal/abnormal . [facility] CenterQyqlpvjXFIGZUWOOB9280-89-16 09:19:00 Test Item Value Reference Range Interpretation Comments Eosinophils (test code = 2.3 See_Comment [A utomated message] The Eosinophils) system which ge nerated this result tra nsmitted reference range : <=4.0. The reference r nilam was not used to int erpret this result as normal/abnormal . [facility] CenterCtlazwgUMFLMDLHEK3460-21-08 09:19:00 Test Item Value Reference Range Interpretation Comments Microcyte (test code = 3+ *NA*(11/06/14 4:19 Microcyte) AM) [facility] CenterYcsunpoXITBKIHKAX5192-34-14 09:19:00 Test Item Value Reference Range Interpretation Comments Lymphocytes # (test code = Lymphocytes 1.6 1.0-5.5 #) [facility] CenterAfjxyaaOUQNRPOXJG1841-94-10 09:19:00 Test Item Value Reference Range Interpretation Comments Monocytes # (test code 0.6 See_Comment [Aut omated message] The = Monocytes #) system which generated this result tra nsmitted reference range : <=0.8. The reference r nilam was not used to int erpret this result as normal/abnormal . [facility] CenterGmluundJSTMATXDQC0601-42-96 09:19:00 Test Item Value Reference Range Interpretation Comments MCHC (test code = MCHC) 30.6 32.0-36.0 [facility] CenterNptabaaDHSKSNIJNV7764-40-28 09:19:00 Test Item Value Reference Range Interpretation Comments MPV (test code = MPV) 8.2 7.4-10.4 [facility] CenterSrhbyweEILUQZMRDN6816-76-14 09:19:00 Test Item Value Reference Range Interpretation Comments RDW (test code = RDW) 17.5 11.5-14.5 [facility] CenterZemspqfWEYTARQNUX0377-85-64 09:19:00 Test Item Value Reference Range Interpretation Comments Platelet (test code = Platelet) 257 133-450 [facility] CenterRydzqnmYCSRLONAEH1144-73-72 09:19:00 Test Item Value Reference Range Interpretation Comments RBC (test code = RBC) 4.00 4.20-5.40 [facility] CenterXwtnqcnQQEFCFJAQL7380-99-07 09:19:00 Test Item Value Reference Range Interpretation Comments Hgb (test code = Hgb) 8.4 12.0-16.0 [facility] CenterDrxbmxfGFVIRYUMBZ4427-59-04 09:19:00 Test Item Value Reference Range Interpretation Comments MCH (test code = MCH) 21.1 pg 27.0-31.0 [facility] CenterYiplurtCFMANBXYUE6113-58-10 09:19:00 Test Item Value Reference Range Interpretation Comments Hct (test code = Hct) 27.6 36.0-48.0 [facility] CenterVnizokkLQSFIYOCYD4451-43-67 09:19:00 Test Item Value Reference Range Interpretation Comments MCV (test code = MCV) 68.8 80.0-98.0 [facility] CenterSwoajyvSUIYVRWNKL2488-48-67 09:19:00 Test Item Value Reference Range Interpretation Comments WBC (test code = WBC) 5.1 3.7-10.4 [facility] RegionWcwdfqsNACDQQZPCNIJ0410-79-38 09:19:00 Test Item Value Reference Range Interpretation Comments Potassium Lvl (test code = Potassium 4.4 3.5-5.1 Lvl) [facility] RegionUjubpudSRXPAHZRCHMP3154-94-19 09:19:00 Test Item Value Reference Range Interpretation Comments Sodium Lvl (test code = Sodium Lvl) 139 135-145 [facility] RegionLkcosetACIZWKQECBII6249-31-62 09:19:00 Test Item Value Reference Range Interpretation Comments Chloride Lvl (test code = Chloride Lvl) 107 95-109 [facility] RegionIqfwzcgYIPHMBONJMEG4759-42-71 09:19:00 Test Item Value Reference Range Interpretation Comments eGFR (test code = eGFR) 107 [facility] RegionGuuwqkwMALUVJIBYYES3311-23-57 09:19:00 Test Item Value Reference Range Interpretation Comments CO2 (test code = CO2) 20 24-32 [facility] RegionPyzqgsgZEACDSUXJQGG1913-46-42 09:19:00 Test Item Value Reference Range Interpretation Comments Calcium Lvl (test code = Calcium Lvl) 9.5 8.5-10.5 [facility] RegionGndexztOWXYDQWZYUAP4599-67-62 09:19:00 Test Item Value Reference Range Interpretation Comments Total Protein (test code = Total 7.7 6.4-8.4 Protein) [facility] RegionZyarxlpVYOGXPUKVNLZ3457-33-02 09:19:00 Test Item Value Reference Range Interpretation Comments Albumin Lvl (test code = Albumin Lvl) 2.9 3.5-5.0 [facility] CenterScdlmrhPQMZGFYFGIGM1915-64-59 09:19:00 Test Item Value Reference Range Interpretation Comments ALT (test code = ALT) 21 See_Comment [Auto mated message] The system which ge nerated this result transmit kuldip reference range : <=65. The reference range was not used to interpr et this result as abiodun l/abnormal. [facility] CenterHfoyplgLLLHRXBCPIGY1072-95-20 09:19:00 Test Item Value Reference Range Interpretation Comments AST (test code = AST) 27 See_Comment [Auto mated message] The system which ge nerated this result transmit kudlip reference range : <=37. The reference range was not used to interpr et this result as abiodun l/abnormal. [facility] CenterNhzhupyUAFALBOPJYXB0148-08-81 09:19:00 Test Item Value Reference Range Interpretation Comments Alk Phos (test code = Alk Phos) 81 39-136 [facility] CenterHtbypshSJELENOUXTXD5751-59-76 09:19:00 Test Item Value Reference Range Interpretation Comments Bili Total (test code = Bili Total) 0.4 0.2-1.3 [facility] CenterAhsffquEDXSQBYNASJG9510-91-42 09:19:00 Test Item Value Reference Range Interpretation Comments Creatinine Lvl (test code = Creatinine 0.8 0.5-1.4 Lvl) [facility] CenterJartkgvCBMFCCKNHYRQ2847-14-86 09:19:00 Test Item Value Reference Range Interpretation Comments Glucose Lvl (test code = Glucose Lvl) 88 70-99 [facility] RegionOoaosgtXQOHZKUSQZSV0069-32-21 09:19:00 Test Item Value Reference Range Interpretation Comments BUN (test code = BUN) 7 7-22 [facility] CenterUaewfsrVYDBTWAFRBIQ1272-80-69 09:19:00 Test Item Value Reference Range Interpretation Comments AGAP (test code = AGAP) 16.4 10.0-20.0 [facility] CenterYkrmbekBSALDYNIDUGE7067-71-53 09:19:00 Test Item Value Reference Range Interpretation Comments B/C Ratio (test code = B/C Ratio) 9 6-25 [facility] CenterTvpctttTMLGEHFXKWSW2980-16-43 09:19:00 Test Item Value Reference Range Interpretation Comments Globulin (test code = Globulin) 4.8 2.0-4.0 [facility] RegionCrvbmhcQGTLRRDQBALR7305-56-68 09:19:00 Test Item Value Reference Range Interpretation Comments A/G Ratio (test code = A/G Ratio) 0.6 0.7-1.6 [facility] CenterDogkjctNRNBOEMPOO8983-84-49 09:19:00 Test Item Value Reference Range Interpretation Comments Segs (test code = Segs) 54.4 45.0-75.0 [facility] CenterEzzacmiPKPAZQYGZR6321-91-61 09:19:00 Test Item Value Reference Range Interpretation Comments Lymphocytes (test code = Lymphocytes) 31.6 20.0-40.0 [facility] CenterGwwblgeCCNZDGXLYT8379-39-45 09:19:00 Test Item Value Reference Range Interpretation Comments Basophils (test code = 0.9 See_Comment [Aut omated message] The Basophils) system which ge nerated this result tra nsmitted reference range : <=1.0. The reference r nilam was not used to int erpret this result as normal/abnormal . [facility] CenterMclairiWLQEPXQCWS7622-48-29 09:19:00 Test Item Value Reference Range Interpretation Comments Segs-Bands # (test code = Segs-Bands #) 2.8 1.5-8.1 [facility] CenterCzcbaobMNMJVZPMPJ8312-71-21 09:19:00 Test Item Value Reference Range Interpretation Comments Monocytes (test code = Monocytes) 10.8 2.0-12.0 [facility] CenterUdrpruuBIEYTTUDPP0246-13-23 09:19:00 Test Item Value Reference Range Interpretation Comments Eosinophils # (test code 0.1 See_Comment [A utomated message] The = Eosinophils #) system whic h generated this result tra nsmitted reference range : <=0.5. The reference r nilam was not used to int erpret this result as normal/abnormal . [facility]VuibrujEDOGVIQNBT7891-[facility] 09:19:00 Test Item Value Reference Range Interpretation Comments Eosinophils (test code = 2.3 See_Comment [A utomated message] The Eosinophils) system which ge nerated this result tra nsmitted reference range : <=4.0. The reference r nilam was not used to int erpret this result as normal/abnormal . [facility] CenterNeyeojjAUOXNLSKNQ5192-12-22 09:19:00 Test Item Value Reference Range Interpretation Comments Microcyte (test code = 3+ *NA*(11/06/14 4:19 Microcyte) AM) [facility] CenterJrbmxajLRALUQECVS9911-52-28 09:19:00 Test Item Value Reference Range Interpretation Comments Lymphocytes # (test code = Lymphocytes 1.6 1.0-5.5 #) [facility] CenterJgenzybDPYZHUIGEK5503-40-79 09:19:00 Test Item Value Reference Range Interpretation Comments Monocytes # (test code 0.6 See_Comment [Aut omated message] The = Monocytes #) system which generated this result tra nsmitted reference range : <=0.8. The reference r nilam was not used to int erpret this result as normal/abnormal . [facility] CenterUphuylySVNEGMYTNY2190-38-31 09:19:00 Test Item Value Reference Range Interpretation Comments MCHC (test code = MCHC) 30.6 32.0-36.0 [facility] CenterRtjzituGTPVOUMJVH6444-49-49 09:19:00 Test Item Value Reference Range Interpretation Comments MPV (test code = MPV) 8.2 7.4-10.4 [facility] CenterQxuivufZLUZBRBXNQ6862-25-44 09:19:00 Test Item Value Reference Range Interpretation Comments RDW (test code = RDW) 17.5 11.5-14.5 [facility] CenterYjmyehvHUFILKGBOU7627-16-45 09:19:00 Test Item Value Reference Range Interpretation Comments Platelet (test code = Platelet) 257 133-450 [facility] CenterVhqnupvHOMJQWMEXL0751-29-90 09:19:00 Test Item Value Reference Range Interpretation Comments RBC (test code = RBC) 4.00 4.20-5.40 [facility] CenterRiycjjgUSCFEPIJCC3896-54-43 09:19:00 Test Item Value Reference Range Interpretation Comments Hgb (test code = Hgb) 8.4 12.0-16.0 [facility] CenterAavzzkzAGERHDLTBP6545-45-54 09:19:00 Test Item Value Reference Range Interpretation Comments MCH (test code = MCH) 21.1 pg 27.0-31.0 [facility] CenterVfptewoGHDZGZNOCO5427-45-02 09:19:00 Test Item Value Reference Range Interpretation Comments Hct (test code = Hct) 27.6 36.0-48.0 [facility] CenterNsnycspOFQDWACIKP3507-33-49 09:19:00 Test Item Value Reference Range Interpretation Comments MCV (test code = MCV) 68.8 80.0-98.0 [facility] CenterLwxosnyUZTNSMHCQD9881-43-76 09:19:00 Test Item Value Reference Range Interpretation Comments WBC (test code = WBC) 5.1 3.7-10.4 [facility]2015-08-14 04:28:00 Test Item Value Reference Range Interpretation Comments RBC Folate (test code = RBC Folate) 2476 381-564 [facility]2015-08-14 04:28:00 Test Item Value Reference Range Interpretation Comments Folate Lvl (test code = Folate Lvl) 10.4 [facility]2015-08-14 04:28:00 Test Item Value Reference Range Interpretation Comments Vitamin B12 Lvl (test code = Vitamin 373 007-8389 B12 Lvl) [facility]2015-08-14 04:28:00 Test Item Value Reference Range Interpretation Comments TIBC (test code = TIBC) 434 228-428 [facility]2015-08-14 04:28:00 Test Item Value Reference Range Interpretation Comments Iron (test code = Iron) 15 30-160 [facility]2015-08-14 04:28:00 Test Item Value Reference Range Interpretation Comments % Satur Fe (test code = % Satur Fe) 3 12-57 [facility]2015-08-14 04:28:00 Test Item Value Reference Range Interpretation Comments UIBC (test code = UIBC) 419 110-370 [facility]2015-08-14 04:28:00 Test Item Value Reference Range Interpretation Comments Ferritin Lvl (test code = Ferritin Lvl) 2 5-204 [facility] [id number] 04:28:00 Test Item Value Reference Range Interpretation Comments LDH (test code = LDH) 114 98-192 [facility] HospitalErmirvrSAJRGGBCED4421-87-13 04:28:00 Test Item Value Reference Range Interpretation Comments Retic Auto (test code = Retic Auto) 1.7 0.5-1.5 [facility] HospitalDrkkqpaHDRHLPPSZS4009-26-22 04:28:00 Test Item Value Reference Range Interpretation Comments Homocyst Tot (test code = Homocyst Tot) 12.8 3.7-13.9 [facility]2015-08-14 04:28:00 Test Item Value Reference Range Interpretation Comments RBC Folate (test code = RBC Folate) 4909 703-626 [facility]2015-08-14 04:28:00 Test Item Value Reference Range Interpretation Comments Folate Lvl (test code = Folate Lvl) 10.4 [facility]2015-08-14 04:28:00 Test Item Value Reference Range Interpretation Comments Vitamin B12 Lvl (test code = Vitamin 494 278-6936 B12 Lvl) [facility]2015-08-14 04:28:00 Test Item Value Reference Range Interpretation Comments TIBC (test code = TIBC) 434 228-428 [facility]2015-08-14 04:28:00 Test Item Value Reference Range Interpretation Comments Iron (test code = Iron) 15 30-160 [facility]2015-08-14 04:28:00 Test Item Value Reference Range Interpretation Comments % Satur Fe (test code = % Satur Fe) 3 12-57 [facility]2015-08-14 04:28:00 Test Item Value Reference Range Interpretation Comments UIBC (test code = UIBC) 419 110-370 [facility]2015-08-14 04:28:00 Test Item Value Reference Range Interpretation Comments Ferritin Lvl (test code = Ferritin Lvl) 2 5-204 [facility] [id number] 04:28:00 Test Item Value Reference Range Interpretation Comments LDH (test code = LDH) 114 98-192 [facility] HospitalBtkxldsVYLTLSHDZI7469-75-07 04:28:00 Test Item Value Reference Range Interpretation Comments Retic Auto (test code = Retic Auto) 1.7 0.5-1.5 [facility] HospitalCpyhsbkTTXJYJRJBL2723-31-69 04:28:00 Test Item Value Reference Range Interpretation Comments Homocyst Tot (test code = Homocyst Tot) 12.8 3.7-13.9 [facility]2015-08-14 04:28:00 Test Item Value Reference Range Interpretation Comments RBC Folate (test code = RBC Folate) 4015 280791 [facility]2015-08-14 04:28:00 Test Item Value Reference Range Interpretation Comments Folate Lvl (test code = Folate Lvl) 10.4 [facility]2015-08-14 04:28:00 Test Item Value Reference Range Interpretation Comments Vitamin B12 Lvl (test code = Vitamin 831 655-2079 B12 Lvl) [facility]2015-08-14 04:28:00 Test Item Value Reference Range Interpretation Comments TIBC (test code = TIBC) 434 228-428 [facility]2015-08-14 04:28:00 Test Item Value Reference Range Interpretation Comments Iron (test code = Iron) 15 30-160 [facility]2015-08-14 04:28:00 Test Item Value Reference Range Interpretation Comments % Satur Fe (test code = % Satur Fe) 3 12-57 [facility] [id number] 04:28:00 Test Item Value Reference Range Interpretation Comments UIBC (test code = UIBC) 419 110-370 [facility]2015-08-14 04:28:00 Test Item Value Reference Range Interpretation Comments Ferritin Lvl (test code = Ferritin Lvl) 2 5-204 [facility] [id number] 04:28:00 Test Item Value Reference Range Interpretation Comments LDH (test code = LDH) 114 98-192 [facility] HospitalRauidexCIFZKARPVO6403-53-67 04:28:00 Test Item Value Reference Range Interpretation Comments Retic Auto (test code = Retic Auto) 1.7 0.5-1.5 [facility] HospitalNtsfxkbODZFSQXCOF6669-86-93 04:28:00 Test Item Value Reference Range Interpretation Comments Homocyst Tot (test code = Homocyst Tot) 12.8 3.7-13.9 [facility]2015-08-14 04:28:00 Test Item Value Reference Range Interpretation Comments RBC Folate (test code = RBC Folate) 4919 280791 [facility] [id number] 04:28:00 Test Item Value Reference Range Interpretation Comments Folate Lvl (test code = Folate Lvl) 10.4 [facility]2015-08-14 04:28:00 Test Item Value Reference Range Interpretation Comments Vitamin B12 Lvl (test code = Vitamin 697 804-9364 B12 Lvl) [facility]2015-08-14 04:28:00 Test Item Value Reference Range Interpretation Comments TIBC (test code = TIBC) 434 228-428 [facility]2015-08-14 04:28:00 Test Item Value Reference Range Interpretation Comments Iron (test code = Iron) 15 30-160 [facility]2015-08-14 04:28:00 Test Item Value Reference Range Interpretation Comments % Satur Fe (test code = % Satur Fe) 3 12-57 [facility] LAMKU8479-27-17 04:28:00 Test Item Value Reference Range Interpretation Comments UIBC (test code = UIBC) 419 110-370 [facility]2015-08-14 04:28:00 Test Item Value Reference Range Interpretation Comments Ferritin Lvl (test code = Ferritin Lvl) 2 5-204 [facility]CHE[facility] [id number] 04:28:00 Test Item Value Reference Range Interpretation Comments LDH (test code = LDH) 114 98-192 [facility] HospitalYxhidtsZLPYISMCKI8338-50-62 04:28:00 Test Item Value Reference Range Interpretation Comments Retic Auto (test code = Retic Auto) 1.7 0.5-1.5 [facility] HospitalZuusobaICYIVXHCON5317-75-21 04:28:00 Test Item Value Reference Range Interpretation Comments Homocyst Tot (test code = Homocyst Tot) 12.8 3.7-13.9 [facility]2015-08-14 04:28:00 Test Item Value Reference Range Interpretation Comments RBC Folate (test code = RBC Folate) 1058 280791 [facility]2015-08-14 04:28:00 Test Item Value Reference Range Interpretation Comments Folate Lvl (test code = Folate Lvl) 10.4 [facility]2015-08-14 04:28:00 Test Item Value Reference Range Interpretation Comments Vitamin B12 Lvl (test code = Vitamin 853 734-7277 B12 Lvl) [facility]2015-08-14 04:28:00 Test Item Value Reference Range Interpretation Comments TIBC (test code = TIBC) 434 228-428 [facility]2015-08-14 04:28:00 Test Item Value Reference Range Interpretation Comments Iron (test code = Iron) 15 30-160 [facility]2015-08-14 04:28:00 Test Item Value Reference Range Interpretation Comments % Satur Fe (test code = % Satur Fe) 3 12-57 [facility]2015-08-14 04:28:00 Test Item Value Reference Range Interpretation Comments UIBC (test code = UIBC) 419 110-370 [facility]2015-08-14 04:28:00 Test Item Value Reference Range Interpretation Comments Ferritin Lvl (test code = Ferritin Lvl) 2 - [facility]2015-08-14 04:28:00 Test Item Value Reference Range Interpretation Comments LDH (test code = LDH) 114 98-192 [facility] HospitalFcxtqkhSYLQNJIHWU8124-06-46 04:28:00 Test Item Value Reference Range Interpretation Comments Retic Auto (test code = Retic Auto) 1.7 0.5-1.5 [facility] HospitalZsurmutIYQORRQMEG3311-68-03 04:28:00 Test Item Value Reference Range Interpretation Comments Homocyst Tot (test code = Homocyst Tot) 12.8 3.7-13.9 [facility]2015-08-14 04:28:00 Test Item Value Reference Range Interpretation Comments RBC Folate (test code = RBC Folate) 9136 280791 [facility]2015-08-14 04:28:00 Test Item Value Reference Range Interpretation Comments Folate Lvl (test code = Folate Lvl) 10.4 [facility]2015-08-14 04:28:00 Test Item Value Reference Range Interpretation Comments Vitamin B12 Lvl (test code = Vitamin 915 232-5225 B12 Lvl) [facility]2015-08-14 04:28:00 Test Item Value Reference Range Interpretation Comments TIBC (test code = TIBC) 434 228-428 [facility]2015-08-14 04:28:00 Test Item Value Reference Range Interpretation Comments Iron (test code = Iron) 15 30-160 [facility]2015-08-14 04:28:00 Test Item Value Reference Range Interpretation Comments % Satur Fe (test code = % Satur Fe) 3 12-57 [facility]2015-08-14 04:28:00 Test Item Value Reference Range Interpretation Comments UIBC (test code = UIBC) 419 110-370 [facility]2015-08-14 04:28:00 Test Item Value Reference Range Interpretation Comments Ferritin Lvl (test code = Ferritin Lvl) 2 - [facility]2015-08-14 04:28:00 Test Item Value Reference Range Interpretation Comments LDH (test code = LDH) 114 98-192 [facility] CenterOvdzeqsZSMWXICSPR3322-61-77 04:28:00 Test Item Value Reference Range Interpretation Comments Retic Auto (test code = Retic Auto) 1.7 0.5-1.5 [facility] HospitalDchxxvpZGYCUJZQUN9416-55-32 04:28:00 Test Item Value Reference Range Interpretation Comments Homocyst Tot (test code = Homocyst Tot) 12.8 3.7-13.9 [facility] [id number] 04:28:00 Test Item Value Reference Range Interpretation Comments RBC Folate (test code = RBC Folate) 1058 280791 [facility] [id number] 04:28:00 Test Item Value Reference Range Interpretation Comments Folate Lvl (test code = Folate Lvl) 10.4 [facility] [id number] 04:28:00 Test Item Value Reference Range Interpretation Comments Vitamin B12 Lvl (test code = Vitamin 144 392-8285 B12 Lvl) [facility]2015-08-14 04:28:00 Test Item Value Reference Range Interpretation Comments TIBC (test code = TIBC) 434 228-428 [facility] [id number] 04:28:00 Test Item Value Reference Range Interpretation Comments Iron (test code = Iron) 15 30-160 [facility] [id number] 04:28:00 Test Item Value Reference Range Interpretation Comments % Satur Fe (test code = % Satur Fe) 3 12-57 [facility] [id number] 04:28:00 Test Item Value Reference Range Interpretation Comments UIBC (test code = UIBC) 419 110-370 [facility] [id number] 04:28:00 Test Item Value Reference Range Interpretation Comments Ferritin Lvl (test code = Ferritin Lvl) 2 5-204 [facility]2015-08-14 04:28:00 Test Item Value Reference Range Interpretation Comments LDH (test code = LDH) 114 98-192 [facility] CenterAwujoxkNAQBTSYVGB2422-20-17 04:28:00 Test Item Value Reference Range Interpretation Comments Retic Auto (test code = Retic Auto) 1.7 0.5-1.5 [facility] HospitalIxsurbzVFWVURWAGI7771-62-41 04:28:00 Test Item Value Reference Range Interpretation Comments Homocyst Tot (test code = Homocyst Tot) 12.8 3.7-13.9 [facility] AND [id number] 22:15:00 Test Item Value Reference Range Interpretation Comments Occult Bld Stl (test Negative (11/05/14 5:15 code = Occult Bld Stl) PM) [facility] AND [id number] 22:15:00 Test Item Value Reference Range Interpretation Comments Occult Bld Stl (test Negative (11/05/14 5:15 code = Occult Bld Stl) PM) [facility] AND [id number] 22:15:00 Test Item Value Reference Range Interpretation Comments Occult Bld Stl (test Negative (11/05/14 5:15 code = Occult Bld Stl) PM) [facility] AND [id number] 22:15:00 Test Item Value Reference Range Interpretation Comments Occult Bld Stl (test Negative (11/05/14 5:15 code = Occult Bld Stl) PM) [facility] AND [id number] 22:15:00 Test Item Value Reference Range Interpretation Comments Occult Bld Stl (test Negative (11/05/14 5:15 code = Occult Bld Stl) PM) [facility] AND [id number] 22:15:00 Test Item Value Reference Range Interpretation Comments Occult Bld Stl (test Negative (11/05/14 5:15 code = Occult Bld Stl) PM) [facility] AND [id number] 22:15:00 Test Item Value Reference Range Interpretation Comments Occult Bld Stl (test Negative (11/05/14 5:15 code = Occult Bld Stl) PM) [facility] [employer] [facility] [id number] 21:23:00 Test Item Value Reference Range Interpretation Comments ABO/Rh (test code = ABO/Rh) B POS [facility] [id number] 21:23:00 Test Item Value Reference Range Interpretation Comments Antibody Scrn (test Negative (11/05/14 4:23 code = Antibody Scrn) PM) [facility] [id number] 21:23:00 Test Item Value Reference Range Interpretation Comments ABO/Rh (test code = ABO/Rh) B POS [facility] [employer] [id number] 21:23:00 Test Item Value Reference Range Interpretation Comments Antibody Scrn (test Negative (11/05/14 4:23 code = Antibody Scrn) PM) [facility] [employer] [id number] 21:23:00 Test Item Value Reference Range Interpretation Comments ABO/Rh (test code = ABO/Rh) B POS [facility] [employer] [id number] 21:23:00 Test Item Value Reference Range Interpretation Comments Antibody Scrn (test Negative (11/05/14 4:23 code = Antibody Scrn) PM) [facility] [employer] [id number] 21:23:00 Test Item Value Reference Range Interpretation Comments ABO/Rh (test code = ABO/Rh) B POS [facility] [employer] [id number] 21:23:00 Test Item Value Reference Range Interpretation Comments Antibody Scrn (test Negative (11/05/14 4:23 code = Antibody Scrn) PM) [facility] [employer] [id number] 21:23:00 Test Item Value Reference Range Interpretation Comments ABO/Rh (test code = ABO/Rh) B [facility] [employer] [id number] 21:23:00 Test Item Value Reference Range Interpretation Comments Antibody Scrn (test Negative (11/05/14 4:23 code = Antibody Scrn) PM) [employer] [id number] 21:23:00 Test Item Value Reference Range Interpretation Comments ABO/Rh (test code = ABO/Rh) B POS [employer] [id number] 21:23:00 Test Item Value Reference Range Interpretation Comments Antibody Scrn (test Negative (11/05/14 4:23 code = Antibody Scrn) PM) [employer] [id number] 21:23:00 Test Item Value Reference Range Interpretation Comments ABO/Rh (test code = ABO/Rh) B POS [employer] [id number] 21:23:00 Test Item Value Reference Range Interpretation Comments Antibody Scrn (test Negative (11/05/14 4:23 code = Antibody Scrn) PM) [employer] [id number] 20:02:00 Test Item Value Reference Range Interpretation Comments CK MB (test code = CK MB) no gt 0.5-3.6 [facility] [employer] [id number] 20:02:00 Test Item Value Reference Range Interpretation Comments Troponin-I (test code no gt See_Comment [Auto mated message] The = Troponin-I) system which g enerated this result transmit kuldip reference range : <=0.40. The reference r nilam was not used to interpr et this result as abiodun l/abnormal. [employer] [id number] 20:02:00 Test Item Value Reference Range Interpretation Comments Total CK (test code = Total CK) 148 12-191 [facility] [employer]2015-08-13 20:02:00 Test Item Value Reference Range Interpretation Comments CK MB Index (test no gt See_Comment [Automate d message] The code = CK MB Index) system w [facility] generated this result transmit kuldip reference range : <=2.5. The reference range was not used to interpr et this result as abiodun l/abnormal. [employer]2015-08-13 20:02:00 Test Item Value Reference Range Interpretation Comments eGFR (test code = eGFR) 104 [facility] [employer]2015-08-13 20:02:00 Test Item Value Reference Range Interpretation Comments CO2 (test code = CO2) 27 24-32 [facility] [employer] [id number] 20:02:00 Test Item Value Reference Range Interpretation Comments Calcium Lvl (test code = Calcium Lvl) 9.8 8.5-10.5 [employer]2015-08-13 20:02:00 Test Item Value Reference Range Interpretation Comments Bili Total (test code = Bili Total) 0.3 0.2-1.3 [employer]2015-08-13 20:02:00 Test Item Value Reference Range Interpretation Comments BUN (test code = BUN) 7 7-22 [employer]2015-08-13 20:02:00 Test Item Value Reference Range Interpretation Comments Glucose Lvl (test code = Glucose Lvl) 87 70-99 [employer] [id number] 20:02:00 Test Item Value Reference Range Interpretation Comments Sodium Lvl (test code = Sodium Lvl) 138 135-145 [facility]2015-08-13 20:02:00 Test Item Value Reference Range Interpretation Comments Chloride Lvl (test code = Chloride Lvl) 104 95-109 [facility]2015-08-13 20:02:00 Test Item Value Reference Range Interpretation Comments Potassium Lvl (test code = Potassium 3.5 3.5-5.1 Lvl) [facility]2015-08-13 20:02:00 Test Item Value Reference Range Interpretation Comments Creatinine Lvl (test code = Creatinine 0.8 0.5-1.4 Lvl) [facility]2015-08-13 20:02:00 Test Item Value Reference Range Interpretation Comments Total Protein (test code = Total 8.2 6.4-8.4 Protein) [facility]2015-08-13 20:02:00 Test Item Value Reference Range Interpretation Comments AST (test code = AST) 17 See_Comment [Auto mated message] The system which ge nerated this result transmit kuldip reference range : <=37. The reference range was not used to interpr et this result as abiodun l/abnormal. [facility]2015-08-13 20:02:00 Test Item Value Reference Range Interpretation Comments Globulin (test code = Globulin) 5.0 2.0-4.0 [facility]2015-08-13 20:02:00 Test Item Value Reference Range Interpretation Comments A/G Ratio (test code = A/G Ratio) 0.6 0.7-1.6 [facility]2015-08-13 20:02:00 Test Item Value Reference Range Interpretation Comments B/C Ratio (test code = B/C Ratio) 9 6-25 [facility]2015-08-13 20:02:00 Test Item Value Reference Range Interpretation Comments AGAP (test code = AGAP) 10.5 10.0-20.0 [facility]2015-08-13 20:02:00 Test Item Value Reference Range Interpretation Comments Alk Phos (test code = Alk Phos) 83 39-136 [facility]2015-08-13 20:02:00 Test Item Value Reference Range Interpretation Comments Albumin Lvl (test code = Albumin Lvl) 3.2 3.5-5.0 [place] [id number] 20:02:00 Test Item Value Reference Range Interpretation Comments ALT (test code = ALT) 18 See_Comment [Auto mated message] The system which ge nerated this result transmit kuldip reference range : <=65. The reference range was not used to interpr et this result as abiodun l/abnormal. [facility]PpvxfyjQAJEVTWSXB5964-65-18 20:02:00 Test Item Value Reference Range Interpretation Comments PTT (test code = PTT) 29.7 s 22.9-35.8 [facility] CenterJstirobJPIJECOSEA3723-51-05 20:02:00 Test Item Value Reference Range Interpretation Comments PT (test code = PT) 15.1 s 12.0-14.7 [facility] CenterSxuadhzJVGORWKTUA8618-53-66 20:02:00 Test Item Value Reference Range Interpretation Comments INR (test code = INR) 1.18 0.85-1.17 [facility] CenterCbvoeqaVOCMJRVSMT3998-53-65 20:02:00 Test Item Value Reference Range Interpretation Comments WBC (test code = WBC) 5.0 3.7-10.4 [facility] CenterDeqmaupSULLMZHZBI9865-03-43 20:02:00 Test Item Value Reference Range Interpretation Comments RBC (test code = RBC) 4.01 4.20-5.40 [facility] CenterZuceotyNAKDPGANHD5909-44-23 20:02:00 Test Item Value Reference Range Interpretation Comments Hgb (test code = Hgb) 8.2 12.0-16.0 [facility] CenterAwrdqlpNPCXVRDLJH4704-17-16 20:02:00 Test Item Value Reference Range Interpretation Comments MPV (test code = MPV) 7.6 7.4-10.4 [facility] CenterGqbpbdfZQNQYMMBMD9149-67-05 20:02:00 Test Item Value Reference Range Interpretation Comments RDW (test code = RDW) 17.2 11.5-14.5 [facility] CenterFvwmxbkLOLPNLXENB7299-77-94 20:02:00 Test Item Value Reference Range Interpretation Comments Platelet (test code = Platelet) 281 133-450 [facility] CenterRxoglrdFEHKSKOQOQ3415-48-60 20:02:00 Test Item Value Reference Range Interpretation Comments MCH (test code = MCH) 20.4 pg 27.0-31.0 [facility] CenterGezpflbXJDVGPQBXK4247-59-06 20:02:00 Test Item Value Reference Range Interpretation Comments MCHC (test code = MCHC) 29.8 32.0-36.0 [facility] CenterEwlrikaCDGLJTIKQY2572-98-47 20:02:00 Test Item Value Reference Range Interpretation Comments MCV (test code = MCV) 68.4 80.0-98.0 [facility] CenterHpuhpyoKBXBIHREZY9443-97-65 20:02:00 Test Item Value Reference Range Interpretation Comments Hct (test code = Hct) 27.4 36.0-48.0 [facility] CenterJnxmvkiDWVEACNVMN6867-81-35 20:02:00 Test Item Value Reference Range Interpretation Comments Segs (test code = Segs) 63.4 45.0-75.0 [facility] CenterFntmgnbJXPRORSPYX1221-98-95 20:02:00 Test Item Value Reference Range Interpretation Comments Hypochrom (test code = 1+ (11/05/14 3:02 PM) Hypochrom) [facility] CenterAhdmrqvDVGPLWBXJU5309-33-72 20:02:00 Test Item Value Reference Range Interpretation Comments Monocytes (test code = Monocytes) 10.2 2.0-12.0 [facility] CenterAgltgcbHDPMPIVCDL9274-68-99 20:02:00 Test Item Value Reference Range Interpretation Comments Eosinophils (test code = 1.5 See_Comment [A utomated message] The Eosinophils) system which ge nerated this result tra nsmitted reference range : <=4.0. The reference r nilam was not used to int erpret this result as normal/abnormal . [facility] CenterMtyifgjHVDUJQQSGS0658-86-01 20:02:00 Test Item Value Reference Range Interpretation Comments Basophils (test code = 0.3 See_Comment [Aut omated message] The Basophils) system which ge nerated this result tra nsmitted reference range : <=1.0. The reference r nilam was not used to int erpret this result as normal/abnormal . [facility] CenterGbwtmytGKBKHFBEMO7497-92-25 20:02:00 Test Item Value Reference Range Interpretation Comments Lymphocytes (test code = Lymphocytes) 24.6 20.0-40.0 [facility] CenterOpqkilrBKMSOJWNVZ1097-04-11 20:02:00 Test Item Value Reference Range Interpretation Comments Plt Morph (test code = Normal (11/05/14 3:02 Plt Morph) PM) [facility] CenterWbqttztXJLGRLWHBG4642-15-74 20:02:00 Test Item Value Reference Range Interpretation Comments RBC Morph (test code = See Note (11/05/14 3:02 RBC Morph) PM) [facility]PmfcvvnJRALZVAEIU3899-65-28 20:02:00 Test Item Value Reference Range Interpretation Comments Lymphocytes # (test code = Lymphocytes 1.2 1.0-5.5 #) [facility] CenterBrnugcpGHATQGPWND6877-12-41 20:02:00 Test Item Value Reference Range Interpretation Comments Monocytes # (test code 0.5 See_Comment [Aut omated message] The = Monocytes #) system which generated this result tra nsmitted reference range : <=0.8. The reference r nilam was not used to int erpret this result as normal/abnormal . [facility] CenterHzmcameSYGUBNOVUX4038-86-63 20:02:00 Test Item Value Reference Range Interpretation Comments Segs-Bands # (test code = Segs-Bands #) 3.2 1.5-8.1 [facility] CenterVignvfwNILTCYFADK1039-06-82 20:02:00 Test Item Value Reference Range Interpretation Comments Microcyte (test code = 3+ *NA*(11/05/14 3:02 Microcyte) PM) [facility] CenterGvctwzjEPXUJNGWQE1337-51-71 20:02:00 Test Item Value Reference Range Interpretation Comments Eosinophils # (test code 0.1 See_Comment [A utomated message] The = Eosinophils #) system whic h generated this result tra nsmitted reference range : <=0.5. The reference r nilam was not used to int erpret this result as normal/abnormal . [facility] SIXVRYY2627-16-06 20:02:00 Test Item Value Reference Range Interpretation Comments CK MB (test code = CK MB) no gt 0.5-3.6 [facility] PPTMULG1828-62-87 20:02:00 Test Item Value Reference Range Interpretation Comments Troponin-I (test code no gt See_Comment [Auto mated message] The = Troponin-I) system which g enerated this result transmit kuldip reference range : <=0.40. The reference r nilam was not used to interpr et this result as abiodun l/abnormal. [facility] HNQEPKP2768-15-30 20:02:00 Test Item Value Reference Range Interpretation Comments Total CK (test code = Total CK) 148 12-191 [facility]Am[facility] ZIYPFXC8491-37-44 20:02:00 Test Item Value Reference Range Interpretation Comments CK MB Index (test no gt See_Comment [Automate d message] The code = CK MB Index) system w [employer] generated this result transmit kuldip reference range : <=2.5. The reference range was not used to interpr et this result as abiodun l/abnormal. [facility]2015-08-13 20:02:00 Test Item Value Reference Range Interpretation Comments eGFR (test code = eGFR) 104 [facility]2015-08-13 20:02:00 Test Item Value Reference Range Interpretation Comments CO2 (test code = CO2) 27 24-32 [facility]2015-08-13 20:02:00 Test Item Value Reference Range Interpretation Comments Calcium Lvl (test code = Calcium Lvl) 9.8 8.5-10.5 [facility]2015-08-13 20:02:00 Test Item Value Reference Range Interpretation Comments Bili Total (test code = Bili Total) 0.3 0.2-1.3 [facility]2015-08-13 20:02:00 Test Item Value Reference Range Interpretation Comments BUN (test code = BUN) 7 7-22 [facility]2015-08-13 20:02:00 Test Item Value Reference Range Interpretation Comments Glucose Lvl (test code = Glucose Lvl) 87 70-99 [facility]2015-08-13 20:02:00 Test Item Value Reference Range Interpretation Comments Sodium Lvl (test code = Sodium Lvl) 138 135-145 [facility]2015-08-13 20:02:00 Test Item Value Reference Range Interpretation Comments Chloride Lvl (test code = Chloride Lvl) 104 95-109 [facility]2015-08-13 20:02:00 Test Item Value Reference Range Interpretation Comments Potassium Lvl (test code = Potassium 3.5 3.5-5.1 Lvl) [facility]2015-08-13 20:02:00 Test Item Value Reference Range Interpretation Comments Creatinine Lvl (test code = Creatinine 0.8 0.5-1.4 Lvl) [facility]2015-08-13 20:02:00 Test Item Value Reference Range Interpretation Comments Total Protein (test code = Total 8.2 6.4-8.4 Protein) [facility]2015-08-13 20:02:00 Test Item Value Reference Range Interpretation Comments AST (test code = AST) 17 See_Comment [Auto mated message] The system which ge nerated this result transmit kuldip reference range : <=37. The reference range was not used to interpr et this result as abiodun l/abnormal. [facility]2015-08-13 20:02:00 Test Item Value Reference Range Interpretation Comments Globulin (test code = Globulin) 5.0 2.0-4.0 [facility]2015-08-13 20:02:00 Test Item Value Reference Range Interpretation Comments A/G Ratio (test code = A/G Ratio) 0.6 0.7-1.6 [facility]2015-08-13 20:02:00 Test Item Value Reference Range Interpretation Comments B/C Ratio (test code = B/C Ratio) 9 6-25 [facility]2015-08-13 20:02:00 Test Item Value Reference Range Interpretation Comments AGAP (test code = AGAP) 10.5 10.0-20.0 [facility]2015-08-13 20:02:00 Test Item Value Reference Range Interpretation Comments Alk Phos (test code = Alk Phos) 83 39-136 [facility]2015-08-13 20:02:00 Test Item Value Reference Range Interpretation Comments Albumin Lvl (test code = Albumin Lvl) 3.2 3.5-5.0 [facility]2015-08-13 20:02:00 Test Item Value Reference Range Interpretation Comments ALT (test code = ALT) 18 See_Comment [Auto mated message] The system which ge nerated this result transmit kuldip reference range : <=65. The reference range was not used to interpr et this result as abiodun l/abnormal. [facility] CenterZoebxdbRPQUZKMVSD4619-81-22 20:02:00 Test Item Value Reference Range Interpretation Comments PTT (test code = PTT) 29.7 s 22.9-35.8 [place] 434025-08-13 20:02:00 Test Item Value Reference Range Interpretation Comments PT (test code = PT) 15.1 s 12.0-14.7 [facility] CenterMqodnijXPJHWVTCHU9578-04-61 20:02:00 Test Item Value Reference Range Interpretation Comments INR (test code = INR) 1.18 0.85-1.17 [facility] CenterMkazgdqJWDYKBZACT9524-63-64 20:02:00 Test Item Value Reference Range Interpretation Comments WBC (test code = WBC) 5.0 3.7-10.4 [facility] CenterZetgdehHBIXSDHSSF7383-40-26 20:02:00 Test Item Value Reference Range Interpretation Comments RBC (test code = RBC) 4.01 4.20-5.40 [facility] CenterPxppukrYLLHHBBROF0509-48-40 20:02:00 Test Item Value Reference Range Interpretation Comments Hgb (test code = Hgb) 8.2 12.0-16.0 [facility] CenterOjztgzkKQYQAGEQOI2106-61-12 20:02:00 Test Item Value Reference Range Interpretation Comments MPV (test code = MPV) 7.6 7.4-10.4 [facility] CenterWuvkvwlFEXTLUCVEC9835-01-60 20:02:00 Test Item Value Reference Range Interpretation Comments RDW (test code = RDW) 17.2 11.5-14.5 [facility] CenterPwtlmnpKYNLMMVFOG4088-45-29 20:02:00 Test Item Value Reference Range Interpretation Comments Platelet (test code = Platelet) 281 133-450 [facility] CenterWirucnbBPRNEZKMLG8377-04-65 20:02:00 Test Item Value Reference Range Interpretation Comments MCH (test code = MCH) 20.4 pg 27.0-31.0 [facility] CenterSxhhnnsCABOMDJPOO2785-67-21 20:02:00 Test Item Value Reference Range Interpretation Comments MCHC (test code = MCHC) 29.8 32.0-36.0 [facility] CenterYqaexrwDXLTCTHEXS4287-98-65 20:02:00 Test Item Value Reference Range Interpretation Comments MCV (test code = MCV) 68.4 80.0-98.0 [facility] CenterQxwdfesRJRZBKMOEY2322-67-49 20:02:00 Test Item Value Reference Range Interpretation Comments Hct (test code = Hct) 27.4 36.0-48.0 [facility] CenterIsjjdkmTMRYKIGHDW4419-20-50 20:02:00 Test Item Value Reference Range Interpretation Comments Segs (test code = Segs) 63.4 45.0-75.0 [facility] CenterDvmlucvMGEEOROPVB7350-45-00 20:02:00 Test Item Value Reference Range Interpretation Comments Hypochrom (test code = 1+ (11/05/14 3:02 PM) Hypochrom) [facility] CenterNhidjkiVSHINVTIUY2347-87-97 20:02:00 Test Item Value Reference Range Interpretation Comments Monocytes (test code = Monocytes) 10.2 2.0-12.0 [facility] CenterUukedsuUASJDRUDQU0733-15-28 20:02:00 Test Item Value Reference Range Interpretation Comments Eosinophils (test code = 1.5 See_Comment [A utomated message] The Eosinophils) system which ge nerated this result tra nsmitted reference range : <=4.0. The reference r nilam was not used to int erpret this result as normal/abnormal . [facility] CenterEpnmfboQGMHBLONJS8158-07-80 20:02:00 Test Item Value Reference Range Interpretation Comments Basophils (test code = 0.3 See_Comment [Aut omated message] The Basophils) system which ge nerated this result tra nsmitted reference range : <=1.0. The reference r nilam was not used to int erpret this result as normal/abnormal . [facility] CenterAbijhavPKMOMYBMJE3708-85-26 20:02:00 Test Item Value Reference Range Interpretation Comments Lymphocytes (test code = Lymphocytes) 24.6 20.0-40.0 [facility] CenterQpgjqkwWNWSDFVBGM3224-26-00 20:02:00 Test Item Value Reference Range Interpretation Comments Plt Morph (test code = Normal (11/05/14 3:02 Plt Morph) PM) [facility] CenterNdrzalbIWBABZWOIG9778-13-88 20:02:00 Test Item Value Reference Range Interpretation Comments RBC Morph (test code = See Note (11/05/14 3:02 RBC Morph) PM) [facility] CenterKiqxtfdLBWXUADEUS7413-87-18 20:02:00 Test Item Value Reference Range Interpretation Comments Lymphocytes # (test code = Lymphocytes 1.2 1.0-5.5 #) [facility] CenterIyupmrwVBLXYQGAMW3985-22-39 20:02:00 Test Item Value Reference Range Interpretation Comments Monocytes # (test code 0.5 See_Comment [Aut omated message] The = Monocytes #) system which generated this result tra nsmitted reference range : <=0.8. The reference r nilam was not used to int erpret this result as normal/abnormal . [facility] CenterGxdcmzfGKSDCRMENS4342-65-22 20:02:00 Test Item Value Reference Range Interpretation Comments Segs-Bands # (test code = Segs-Bands #) 3.2 1.5-8.1 [facility] CenterUanxgnrUUCJLJXKQR7886-46-65 20:02:00 Test Item Value Reference Range Interpretation Comments Microcyte (test code = 3+ *NA*(11/05/14 3:02 Microcyte) PM) [facility] HospitalHbzeyvdXABTWDYUIN2936-70-03 20:02:00 Test Item Value Reference Range Interpretation Comments Eosinophils # (test code 0.1 See_Comment [A utomated message] The = Eosinophils #) system whic h generated this result tra nsmitted reference range : <=0.5. The reference r nilam was not used to int erpret this result as normal/abnormal . [facility] CenterAm[facility] Media Labs JYHTDGP0621-29-47 20:02:00 Test Item Value Reference Range Interpretation Comments CK MB (test code = CK MB) no gt 0.5-3.6 [facility] HospitalGuarnicUO[facility] SYITBJC4902-48-35 20:02:00 Test Item Value Reference Range Interpretation Comments Troponin-I (test code no gt See_Comment [Auto mated message] The = Troponin-I) system which g enerated this result transmit kuldip reference range : <=0.40. The reference r nilam was not used to interpr et this result as abiodun l/abnormal. [facility] CenterAm[facility] Labs KJSEFOS0482-84-58 20:02:00 Test Item Value Reference Range Interpretation Comments Total CK (test code = Total CK) 148 12-191 [facility] HospitalSiOnyxAC LRPKMTD2124-50-01 20:02:00 Test Item Value Reference Range Interpretation Comments CK MB Index (test no gt See_Comment [Automate d message] The code = CK MB Index) system w [facility] generated this result transmit kuldip reference range : <=2.5. The reference range was not used to interpr et this result as abiodun l/abnormal. [facility] [employer] JACOR3243-08-62 20:02:00 Test Item Value Reference Range Interpretation Comments eGFR (test code = eGFR) 104 [facility] CenterEasyProperty CTZFF0695-18-48 20:02:00 Test Item Value Reference Range Interpretation Comments CO2 (test code = CO2) 27 24-32 [facility] [employer] [id number] 20:02:00 Test Item Value Reference Range Interpretation Comments Calcium Lvl (test code = Calcium Lvl) 9.8 8.5-10.5 [facility]2015-08-13 20:02:00 Test Item Value Reference Range Interpretation Comments Bili Total (test code = Bili Total) 0.3 0.2-1.3 [facility]2015-08-13 20:02:00 Test Item Value Reference Range Interpretation Comments BUN (test code = BUN) 7 7-22 [facility]2015-08-13 20:02:00 Test Item Value Reference Range Interpretation Comments Glucose Lvl (test code = Glucose Lvl) 87 70-99 [facility]2015-08-13 20:02:00 Test Item Value Reference Range Interpretation Comments Sodium Lvl (test code = Sodium Lvl) 138 135-145 [facility]2015-08-13 20:02:00 Test Item Value Reference Range Interpretation Comments Chloride Lvl (test code = Chloride Lvl) 104 95-109 [facility]2015-08-13 20:02:00 Test Item Value Reference Range Interpretation Comments Potassium Lvl (test code = Potassium 3.5 3.5-5.1 Lvl) [facility]2015-08-13 20:02:00 Test Item Value Reference Range Interpretation Comments Creatinine Lvl (test code = Creatinine 0.8 0.5-1.4 Lvl) [facility]2015-08-13 20:02:00 Test Item Value Reference Range Interpretation Comments Total Protein (test code = Total 8.2 6.4-8.4 Protein) [facility]2015-08-13 20:02:00 Test Item Value Reference Range Interpretation Comments AST (test code = AST) 17 See_Comment [Auto mated message] The system which ge nerated this result transmit kuldip reference range : <=37. The reference range was not used to interpr et this result as abiodun l/abnormal. [facility]2015-08-13 20:02:00 Test Item Value Reference Range Interpretation Comments Globulin (test code = Globulin) 5.0 2.0-4.0 [facility]2015-08-13 20:02:00 Test Item Value Reference Range Interpretation Comments A/G Ratio (test code = A/G Ratio) 0.6 0.7-1.6 [place] 583985-08-13 20:02:00 Test Item Value Reference Range Interpretation Comments B/C Ratio (test code = B/C Ratio) 9 6-25 [facility]2015-08-13 20:02:00 Test Item Value Reference Range Interpretation Comments AGAP (test code = AGAP) 10.5 10.0-20.0 [facility]2015-08-13 20:02:00 Test Item Value Reference Range Interpretation Comments Alk Phos (test code = Alk Phos) 83 39-136 [facility]2015-08-13 20:02:00 Test Item Value Reference Range Interpretation Comments Albumin Lvl (test code = Albumin Lvl) 3.2 3.5-5.0 [facility]2015-08-13 20:02:00 Test Item Value Reference Range Interpretation Comments ALT (test code = ALT) 18 See_Comment [Auto mated message] The system which ge nerated this result transmit kuldip reference range : <=65. The reference range was not used to interpr et this result as abiodun l/abnormal. [facility] CenterVlivhhePWLHGOEVUJ5331-47-35 20:02:00 Test Item Value Reference Range Interpretation Comments PTT (test code = PTT) 29.7 s 22.9-35.8 [facility] CenterRxlidzsTRYAAAEZPK5930-81-50 20:02:00 Test Item Value Reference Range Interpretation Comments PT (test code = PT) 15.1 s 12.0-14.7 [facility] CenterCnendvrZQQBEGNNUN3252-63-93 20:02:00 Test Item Value Reference Range Interpretation Comments INR (test code = INR) 1.18 0.85-1.17 [facility] CenterDfgxxgrJFZFFRWPIE1293-48-10 20:02:00 Test Item Value Reference Range Interpretation Comments WBC (test code = WBC) 5.0 3.7-10.4 [facility] CenterOquvcwfHNAAMIJBMK1492-17-54 20:02:00 Test Item Value Reference Range Interpretation Comments RBC (test code = RBC) 4.01 4.20-5.40 [facility] CenterZjxwgfgUPMQOHSMHN3575-08-92 20:02:00 Test Item Value Reference Range Interpretation Comments Hgb (test code = Hgb) 8.2 12.0-16.0 [facility] CenterNozqhdwBPUJBVWYPQ8233-27-67 20:02:00 Test Item Value Reference Range Interpretation Comments MPV (test code = MPV) 7.6 7.4-10.4 [facility] CenterAfatbemGFNSTUQKQV4180-75-50 20:02:00 Test Item Value Reference Range Interpretation Comments RDW (test code = RDW) 17.2 11.5-14.5 [facility] CenterHmuwkodNYXBSGSAAO3115-68-75 20:02:00 Test Item Value Reference Range Interpretation Comments Platelet (test code = Platelet) 281 133-450 [facility] CenterNqgeeqqJQBTNYUDXG5332-84-51 20:02:00 Test Item Value Reference Range Interpretation Comments MCH (test code = MCH) 20.4 pg 27.0-31.0 [facility] CenterVfsouckMSWCPDGDXZ5230-45-12 20:02:00 Test Item Value Reference Range Interpretation Comments MCHC (test code = MCHC) 29.8 32.0-36.0 [facility] CenterFtjezbzXSDBAHWCXD1740-05-69 20:02:00 Test Item Value Reference Range Interpretation Comments MCV (test code = MCV) 68.4 80.0-98.0 [facility] CenterGltoxpnGTBZAUTDZH0348-14-97 20:02:00 Test Item Value Reference Range Interpretation Comments Hct (test code = Hct) 27.4 36.0-48.0 [facility] CenterJyhozguJVJAABOTNX0506-73-79 20:02:00 Test Item Value Reference Range Interpretation Comments Segs (test code = Segs) 63.4 45.0-75.0 [facility] CenterQlbkdiwJMBTPALONH8153-81-76 20:02:00 Test Item Value Reference Range Interpretation Comments Hypochrom (test code = 1+ (11/05/14 3:02 PM) Hypochrom) [facility] CenterEgrvnplVQMJSJAKNS1570-57-51 20:02:00 Test Item Value Reference Range Interpretation Comments Monocytes (test code = Monocytes) 10.2 2.0-12.0 [facility] CenterCypvxcgLEVCXCEYVP1013-70-98 20:02:00 Test Item Value Reference Range Interpretation Comments Eosinophils (test code = 1.5 See_Comment [A utomated message] The Eosinophils) system which ge nerated this result tra nsmitted reference range : <=4.0. The reference r nilam was not used to int erpret this result as normal/abnormal . [facility] CenterKmjzepuVBXEGDTKAK1578-65-77 20:02:00 Test Item Value Reference Range Interpretation Comments Basophils (test code = 0.3 See_Comment [Aut omated message] The Basophils) system which ge nerated this result tra nsmitted reference range : <=1.0. The reference r nilam was not used to int erpret this result as normal/abnormal . [facility] CenterZvfppvzWZKXLSHKBD6440-67-25 20:02:00 Test Item Value Reference Range Interpretation Comments Lymphocytes (test code = Lymphocytes) 24.6 20.0-40.0 [facility] CenterGbfldsgPYDOSNIMVU1212-89-36 20:02:00 Test Item Value Reference Range Interpretation Comments Plt Morph (test code = Normal (11/05/14 3:02 Plt Morph) PM) [facility] CenterKybiketCQJVCNLCJM5211-00-19 20:02:00 Test Item Value Reference Range Interpretation Comments RBC Morph (test code = See Note (11/05/14 3:02 RBC Morph) PM) [facility] CenterQcrfzccLSONNCNEBQ9059-56-82 20:02:00 Test Item Value Reference Range Interpretation Comments Lymphocytes # (test code = Lymphocytes 1.2 1.0-5.5 #) [facility] CenterIhsewfkCQRRBQBLMA3544-36-72 20:02:00 Test Item Value Reference Range Interpretation Comments Monocytes # (test code 0.5 See_Comment [Aut omated message] The = Monocytes #) system which generated this result tra nsmitted reference range : <=0.8. The reference r nilam was not used to int erpret this result as normal/abnormal . [facility] CenterGyvilegZIROLIZNKR5308-67-67 20:02:00 Test Item Value Reference Range Interpretation Comments Segs-Bands # (test code = Segs-Bands #) 3.2 1.5-8.1 [facility] CenterSgsomfcPMSRDCTBNA5918-46-56 20:02:00 Test Item Value Reference Range Interpretation Comments Microcyte (test code = 3+ *NA*(11/05/14 3:02 Microcyte) PM) [facility] CenterYulucpbGEOUYLNPPB4749-68-19 20:02:00 Test Item Value Reference Range Interpretation Comments Eosinophils # (test code 0.1 See_Comment [A utomated message] The = Eosinophils #) system whic h generated this result tra nsmitted reference range : <=0.5. The reference r nilam was not used to int erpret this result as normal/abnormal . [facility] HospitalCARDIAC XZYAHTV8651-81-10 20:02:00 Test Item Value Reference Range Interpretation Comments CK MB (test code = CK MB) no gt 0.5-3.6 [facility]SnapannCARDIAC BFAMVFB9731-73-53 20:02:00 Test Item Value Reference Range Interpretation Comments Troponin-I (test code no gt See_Comment [Auto mated message] The = Troponin-I) system which g enerated this result transmit kuldip reference range : <=0.40. The reference r nilam was not used to interpr et this result as abiodun l/abnormal. [facility] [employer] [id number] 20:02:00 Test Item Value Reference Range Interpretation Comments Total CK (test code = Total CK) 148 12-191 [facility] [employer] [id number] 20:02:00 Test Item Value Reference Range Interpretation Comments CK MB Index (test no gt See_Comment [Automate d message] The code = CK MB Index) system w [facility] generated this result transmit kuldip reference range : <=2.5. The reference range was not used to interpr et this result as abiodun l/abnormal. [employer] [id number] 20:02:00 Test Item Value Reference Range Interpretation Comments eGFR (test code = eGFR) 104 [facility] [employer] [id number] 20:02:00 Test Item Value Reference Range Interpretation Comments CO2 (test code = CO2) 27 24-32 [facility] [employer] [id number] 20:02:00 Test Item Value Reference Range Interpretation Comments Calcium Lvl (test code = Calcium Lvl) 9.8 8.5-10.5 [facility] [employer] [id number] 20:02:00 Test Item Value Reference Range Interpretation Comments Bili Total (test code = Bili Total) 0.3 0.2-1.3 [facility] [employer] [id number] 20:02:00 Test Item Value Reference Range Interpretation Comments BUN (test code = BUN) 7 7-22 [facility] [employer] [id number] 20:02:00 Test Item Value Reference Range Interpretation Comments Glucose Lvl (test code = Glucose Lvl) 87 70-99 [employer] [id number] 20:02:00 Test Item Value Reference Range Interpretation Comments Sodium Lvl (test code = Sodium Lvl) 138 135-145 [facility]2015-08-13 20:02:00 Test Item Value Reference Range Interpretation Comments Chloride Lvl (test code = Chloride Lvl) 104 95-109 [facility]2015-08-13 20:02:00 Test Item Value Reference Range Interpretation Comments Potassium Lvl (test code = Potassium 3.5 3.5-5.1 Lvl) [facility]2015-08-13 20:02:00 Test Item Value Reference Range Interpretation Comments Creatinine Lvl (test code = Creatinine 0.8 0.5-1.4 Lvl) [facility]2015-08-13 20:02:00 Test Item Value Reference Range Interpretation Comments Total Protein (test code = Total 8.2 6.4-8.4 Protein) [facility]2015-08-13 20:02:00 Test Item Value Reference Range Interpretation Comments AST (test code = AST) 17 See_Comment [Auto mated message] The system which ge nerated this result transmit kuldip reference range : <=37. The reference range was not used to interpr et this result as abiodun l/abnormal. [facility]2015-08-13 20:02:00 Test Item Value Reference Range Interpretation Comments Globulin (test code = Globulin) 5.0 2.0-4.0 [facility]2015-08-13 20:02:00 Test Item Value Reference Range Interpretation Comments A/G Ratio (test code = A/G Ratio) 0.6 0.7-1.6 [facility]2015-08-13 20:02:00 Test Item Value Reference Range Interpretation Comments B/C Ratio (test code = B/C Ratio) 9 6-25 [facility]2015-08-13 20:02:00 Test Item Value Reference Range Interpretation Comments AGAP (test code = AGAP) 10.5 10.0-20.0 [facility]2015-08-13 20:02:00 Test Item Value Reference Range Interpretation Comments Alk Phos (test code = Alk Phos) 83 39-136 [facility]2015-08-13 20:02:00 Test Item Value Reference Range Interpretation Comments Albumin Lvl (test code = Albumin Lvl) 3.2 3.5-5.0 [facility]2015-08-13 20:02:00 Test Item Value Reference Range Interpretation Comments ALT (test code = ALT) 18 See_Comment [Auto mated message] The system which ge nerated this result transmit kuldip reference range : <=65. The reference range was not used to interpr et this result as abiodun l/abnormal. [facility]GhskniiFZOUQEETFR2175-21-85 20:02:00 Test Item Value Reference Range Interpretation Comments PTT (test code = PTT) 29.7 s 22.9-35.8 [facility] CenterOoqjcblVQDQNHDIMJ9466-54-03 20:02:00 Test Item Value Reference Range Interpretation Comments PT (test code = PT) 15.1 s 12.0-14.7 [facility] CenterSuqlbmqIFLVXHXSRS3723-95-91 20:02:00 Test Item Value Reference Range Interpretation Comments INR (test code = INR) 1.18 0.85-1.17 [facility] CenterVgurkwnYWXHHMHOCU9181-46-20 20:02:00 Test Item Value Reference Range Interpretation Comments WBC (test code = WBC) 5.0 3.7-10.4 [facility] CenterSvephtvGHLGTIROUK6401-56-65 20:02:00 Test Item Value Reference Range Interpretation Comments RBC (test code = RBC) 4.01 4.20-5.40 [facility] CenterFnbvzaaBNUYAJVPHA8493-43-46 20:02:00 Test Item Value Reference Range Interpretation Comments Hgb (test code = Hgb) 8.2 12.0-16.0 [facility] CenterKkugumaTLVZOZKPFP3257-55-63 20:02:00 Test Item Value Reference Range Interpretation Comments MPV (test code = MPV) 7.6 7.4-10.4 [facility] CenterIjopxuuPCWCJUSUPV6452-05-80 20:02:00 Test Item Value Reference Range Interpretation Comments RDW (test code = RDW) 17.2 11.5-14.5 [facility] CenterArzzurpNPOWTPUTEF0067-59-09 20:02:00 Test Item Value Reference Range Interpretation Comments Platelet (test code = Platelet) 281 133-450 [facility] CenterGlyknymQAAAOODPQH3324-09-84 20:02:00 Test Item Value Reference Range Interpretation Comments MCH (test code = MCH) 20.4 pg 27.0-31.0 [facility] CenterZmjkjlpKAUDNZEUIQ4742-72-36 20:02:00 Test Item Value Reference Range Interpretation Comments MCHC (test code = MCHC) 29.8 32.0-36.0 [facility] CenterUiwkzvtEKDWIHTZFW6003-88-87 20:02:00 Test Item Value Reference Range Interpretation Comments MCV (test code = MCV) 68.4 80.0-98.0 [facility] CenterZbolpsnKIHAIJVCAS4815-09-70 20:02:00 Test Item Value Reference Range Interpretation Comments Hct (test code = Hct) 27.4 36.0-48.0 [facility] CenterVasojnjNFEIKZAYHN7523-72-35 20:02:00 Test Item Value Reference Range Interpretation Comments Segs (test code = Segs) 63.4 45.0-75.0 [facility] CenterFwtwluqAVPKCIFZTJ1798-40-74 20:02:00 Test Item Value Reference Range Interpretation Comments Hypochrom (test code = 1+ (11/05/14 3:02 PM) Hypochrom) [facility] CenterKqvgxgfHYECXKDGCG1832-35-07 20:02:00 Test Item Value Reference Range Interpretation Comments Monocytes (test code = Monocytes) 10.2 2.0-12.0 [facility] CenterMbkyjndYRRIRHVYEK7386-37-31 20:02:00 Test Item Value Reference Range Interpretation Comments Eosinophils (test code = 1.5 See_Comment [A utomated message] The Eosinophils) system which ge nerated this result tra nsmitted reference range : <=4.0. The reference r nilam was not used to int erpret this result as normal/abnormal . [facility] CenterGgatckwCMDYUTNHVU9331-29-86 20:02:00 Test Item Value Reference Range Interpretation Comments Basophils (test code = 0.3 See_Comment [Aut omated message] The Basophils) system which ge nerated this result tra nsmitted reference range : <=1.0. The reference r nilam was not used to int erpret this result as normal/abnormal . [facility] CenterMbppyakFRBWFLWNAJ2491-11-64 20:02:00 Test Item Value Reference Range Interpretation Comments Lymphocytes (test code = Lymphocytes) 24.6 20.0-40.0 [facility] CenterYhlhvlpPPQXTLYQPO5989-80-59 20:02:00 Test Item Value Reference Range Interpretation Comments Plt Morph (test code = Normal (11/05/14 3:02 Plt Morph) PM) [facility] CenterEjcertoWXWGCJSGWH1192-24-32 20:02:00 Test Item Value Reference Range Interpretation Comments RBC Morph (test code = See Note (11/05/14 3:02 RBC Morph) PM) [facility] HospitalIisubloXJJBQSMWWU4510-94-78 20:02:00 Test Item Value Reference Range Interpretation Comments Lymphocytes # (test code = Lymphocytes 1.2 1.0-5.5 #) [facility] CenterQupdptjNIENLKKXHA9329-01-32 20:02:00 Test Item Value Reference Range Interpretation Comments Monocytes # (test code 0.5 See_Comment [Aut omated message] The = Monocytes #) system which generated this result tra nsmitted reference range : <=0.8. The reference r nilam was not used to int erpret this result as normal/abnormal . [facility] CenterZezyviqLIRSXVIWPR6506-81-33 20:02:00 Test Item Value Reference Range Interpretation Comments Segs-Bands # (test code = Segs-Bands #) 3.2 1.5-8.1 [facility] CenterRpqqaqxXOFZJAXDMK8180-42-89 20:02:00 Test Item Value Reference Range Interpretation Comments Microcyte (test code = 3+ *NA*(11/05/14 3:02 Microcyte) PM) [facility] CenterWqkitefCVSASXMRVG5400-82-29 20:02:00 Test Item Value Reference Range Interpretation Comments Eosinophils # (test code 0.1 See_Comment [A utomated message] The = Eosinophils #) system whic h generated this result tra nsmitted reference range : <=0.5. The reference r nilam was not used to int erpret this result as normal/abnormal . [facility] [id number] 20:02:00 Test Item Value Reference Range Interpretation Comments CK MB (test code = CK MB) no gt 0.5-3.6 [facility] [id number] 20:02:00 Test Item Value Reference Range Interpretation Comments Troponin-I (test code no gt See_Comment [Auto mated message] The = Troponin-I) system which g enerated this result transmit kuldip reference range : <=0.40. The reference r nilam was not used to interpr et this result as abiodun l/abnormal. [facility] QCDEKOH3576-34-05 20:02:00 Test Item Value Reference Range Interpretation Comments Total CK (test code = Total CK) 148 12-191 [facility] [id number] 20:02:00 Test Item Value Reference Range Interpretation Comments CK MB Index (test no gt See_Comment [Automate d message] The code = CK MB Index) system w [facility] generated this result transmit kuldip reference range : <=2.5. The reference range was not used to interpr et this result as abiodun l/abnormal. [facility]2015-08-13 20:02:00 Test Item Value Reference Range Interpretation Comments eGFR (test code = eGFR) 104 [facility]2015-08-13 20:02:00 Test Item Value Reference Range Interpretation Comments CO2 (test code = CO2) 27 24-32 [facility]2015-08-13 20:02:00 Test Item Value Reference Range Interpretation Comments Calcium Lvl (test code = Calcium Lvl) 9.8 8.5-10.5 [facility]2015-08-13 20:02:00 Test Item Value Reference Range Interpretation Comments Bili Total (test code = Bili Total) 0.3 0.2-1.3 [facility]2015-08-13 20:02:00 Test Item Value Reference Range Interpretation Comments BUN (test code = BUN) 7 7-22 [facility]2015-08-13 20:02:00 Test Item Value Reference Range Interpretation Comments Glucose Lvl (test code = Glucose Lvl) 87 70-99 [facility]2015-08-13 20:02:00 Test Item Value Reference Range Interpretation Comments Sodium Lvl (test code = Sodium Lvl) 138 135-145 [facility]2015-08-13 20:02:00 Test Item Value Reference Range Interpretation Comments Chloride Lvl (test code = Chloride Lvl) 104 95-109 [facility]2015-08-13 20:02:00 Test Item Value Reference Range Interpretation Comments Potassium Lvl (test code = Potassium 3.5 3.5-5.1 Lvl) [facility]2015-08-13 20:02:00 Test Item Value Reference Range Interpretation Comments Creatinine Lvl (test code = Creatinine 0.8 0.5-1.4 Lvl) [facility]2015-08-13 20:02:00 Test Item Value Reference Range Interpretation Comments Total Protein (test code = Total 8.2 6.4-8.4 Protein) [facility]2015-08-13 20:02:00 Test Item Value Reference Range Interpretation Comments AST (test code = AST) 17 See_Comment [Auto mated message] The system which ge nerated this result transmit kuldip reference range : <=37. The reference range was not used to interpr et this result as abiodun l/abnormal. [facility]2015-08-13 20:02:00 Test Item Value Reference Range Interpretation Comments Globulin (test code = Globulin) 5.0 2.0-4.0 [facility]2015-08-13 20:02:00 Test Item Value Reference Range Interpretation Comments A/G Ratio (test code = A/G Ratio) 0.6 0.7-1.6 [place] [id number] 20:02:00 Test Item Value Reference Range Interpretation Comments B/C Ratio (test code = B/C Ratio) 9 6-25 [facility]2015-08-13 20:02:00 Test Item Value Reference Range Interpretation Comments AGAP (test code = AGAP) 10.5 10.0-20.0 [facility]2015-08-13 20:02:00 Test Item Value Reference Range Interpretation Comments Alk Phos (test code = Alk Phos) 83 39-136 [facility]2015-08-13 20:02:00 Test Item Value Reference Range Interpretation Comments Albumin Lvl (test code = Albumin Lvl) 3.2 3.5-5.0 [facility]2015-08-13 20:02:00 Test Item Value Reference Range Interpretation Comments ALT (test code = ALT) 18 See_Comment [Auto mated message] The system which ge nerated this result transmit kuldip reference range : <=65. The reference range was not used to interpr et this result as abiodun l/abnormal. [facility] CenterNctgqrdNEFBSGJZPQ0016-91-45 20:02:00 Test Item Value Reference Range Interpretation Comments PTT (test code = PTT) 29.7 s 22.9-35.8 [place] 434025-08-13 20:02:00 Test Item Value Reference Range Interpretation Comments PT (test code = PT) 15.1 s 12.0-14.7 [place] 434025-08-13 20:02:00 Test Item Value Reference Range Interpretation Comments INR (test code = INR) 1.18 0.85-1.17 [facility] CenterKlxadwmLCMLEKMUKQ9652-66-98 20:02:00 Test Item Value Reference Range Interpretation Comments WBC (test code = WBC) 5.0 3.7-10.4 [facility] CenterMarlmfpTANEYJZEOL6869-84-54 20:02:00 Test Item Value Reference Range Interpretation Comments RBC (test code = RBC) 4.01 4.20-5.40 [facility] CenterJolctpuTMGGXTYIPV9794-08-52 20:02:00 Test Item Value Reference Range Interpretation Comments Hgb (test code = Hgb) 8.2 12.0-16.0 [facility] CenterHqljincJRDGNMKDFD7737-06-11 20:02:00 Test Item Value Reference Range Interpretation Comments MPV (test code = MPV) 7.6 7.4-10.4 [facility] CenterJxjkehtDDFVODOGUS7714-77-14 20:02:00 Test Item Value Reference Range Interpretation Comments RDW (test code = RDW) 17.2 11.5-14.5 [facility] CenterCarwpwaAOXSBIJDFD5088-14-90 20:02:00 Test Item Value Reference Range Interpretation Comments Platelet (test code = Platelet) 281 133-450 [facility] CenterJddjokeJFHWFADUZG1048-79-47 20:02:00 Test Item Value Reference Range Interpretation Comments MCH (test code = MCH) 20.4 pg 27.0-31.0 [facility] CenterUbhayzrLQFMOFHEFH4665-98-94 20:02:00 Test Item Value Reference Range Interpretation Comments MCHC (test code = MCHC) 29.8 32.0-36.0 [facility] CenterWlloczjHKWZRXQOFH1352-05-80 20:02:00 Test Item Value Reference Range Interpretation Comments MCV (test code = MCV) 68.4 80.0-98.0 [facility] CenterQgaaigmFAJKXGGJHK4903-14-60 20:02:00 Test Item Value Reference Range Interpretation Comments Hct (test code = Hct) 27.4 36.0-48.0 [facility] CenterVrxftagVAIFQYRYTA8668-21-44 20:02:00 Test Item Value Reference Range Interpretation Comments Segs (test code = Segs) 63.4 45.0-75.0 [facility] CenterBqjowzvLRCRNSAJLA2448-17-24 20:02:00 Test Item Value Reference Range Interpretation Comments Hypochrom (test code = 1+ (11/05/14 3:02 PM) Hypochrom) [facility] CenterWbrxcapFWATEGGIKP6157-43-74 20:02:00 Test Item Value Reference Range Interpretation Comments Monocytes (test code = Monocytes) 10.2 2.0-12.0 [facility] CenterIhuqffrDDFIEBSTPR7485-22-43 20:02:00 Test Item Value Reference Range Interpretation Comments Eosinophils (test code = 1.5 See_Comment [A utomated message] The Eosinophils) system which ge nerated this result tra nsmitted reference range : <=4.0. The reference r nilam was not used to int erpret this result as normal/abnormal . [facility] CenterLzomuiyXDJAPXEAIZ4300-89-77 20:02:00 Test Item Value Reference Range Interpretation Comments Basophils (test code = 0.3 See_Comment [Aut omated message] The Basophils) system which ge nerated this result tra nsmitted reference range : <=1.0. The reference r nilam was not used to int erpret this result as normal/abnormal . [facility] CenterNgfygafTDCGKISTUH4926-71-18 20:02:00 Test Item Value Reference Range Interpretation Comments Lymphocytes (test code = Lymphocytes) 24.6 20.0-40.0 [facility] CenterTvoxslnEZASCSEGQE5127-16-14 20:02:00 Test Item Value Reference Range Interpretation Comments Plt Morph (test code = Normal (11/05/14 3:02 Plt Morph) PM) [facility] CenterVkivjahZKPYFOVJAH6333-38-05 20:02:00 Test Item Value Reference Range Interpretation Comments RBC Morph (test code = See Note (11/05/14 3:02 RBC Morph) PM) [facility] CenterUioksumSYCHBLXWIP4801-80-58 20:02:00 Test Item Value Reference Range Interpretation Comments Lymphocytes # (test code = Lymphocytes 1.2 1.0-5.5 #) [facility] CenterRtvqnbeWEMXKGPHEX7119-22-94 20:02:00 Test Item Value Reference Range Interpretation Comments Monocytes # (test code 0.5 See_Comment [Aut omated message] The = Monocytes #) system which generated this result tra nsmitted reference range : <=0.8. The reference r nilam was not used to int erpret this result as normal/abnormal . [facility] CenterBwzkabeUDWYFJNVFN0326-30-78 20:02:00 Test Item Value Reference Range Interpretation Comments Segs-Bands # (test code = Segs-Bands #) 3.2 1.5-8.1 [facility] HospitalDkswtidJZCWYPTBYE5539-82-53 20:02:00 Test Item Value Reference Range Interpretation Comments Microcyte (test code = 3+ *NA*(11/05/14 3:02 Microcyte) PM) [facility] HospitalZotcxazXLGHIAGTUD9458-45-66 20:02:00 Test Item Value Reference Range Interpretation Comments Eosinophils # (test code 0.1 See_Comment [A utomated message] The = Eosinophils #) system whic h generated this result tra nsmitted reference range : <=0.5. The reference r nilam was not used to int erpret this result as normal/abnormal . [facility] CenterAm[facility] Labs ATSVONP1211-52-68 20:02:00 Test Item Value Reference Range Interpretation Comments CK MB (test code = CK MB) no gt 0.5-3.6 [facility] RJYQOPD8265-34-92 20:02:00 Test Item Value Reference Range Interpretation Comments Troponin-I (test code no gt See_Comment [Auto mated message] The = Troponin-I) system which g enerated this result transmit kuldip reference range : <=0.40. The reference r nilam was not used to interpr et this result as abiodun l/abnormal. [facility] CenterSafeTacMagAC NJZANIW7236-66-07 20:02:00 Test Item Value Reference Range Interpretation Comments Total CK (test code = Total CK) 148 12-191 [facility] HospitalSiOnyxAC YMLVDTE7870-70-42 20:02:00 Test Item Value Reference Range Interpretation Comments CK MB Index (test no gt See_Comment [Automate d message] The code = CK MB Index) system w [facility] generated this result transmit kuldip reference range : <=2.5. The reference range was not used to interpr et this result as abiodun l/abnormal. [facility] [employer] EHHAJ2124-64-36 20:02:00 Test Item Value Reference Range Interpretation Comments eGFR (test code = eGFR) 104 [facility] CenterEasyProperty HPGYH6611-27-85 20:02:00 Test Item Value Reference Range Interpretation Comments CO2 (test code = CO2) 27 24-32 [facility] [employer] DODTB2583-26-11 20:02:00 Test Item Value Reference Range Interpretation Comments Calcium Lvl (test code = Calcium Lvl) 9.8 8.5-10.5 [facility]2015-08-13 20:02:00 Test Item Value Reference Range Interpretation Comments Bili Total (test code = Bili Total) 0.3 0.2-1.3 [facility]2015-08-13 20:02:00 Test Item Value Reference Range Interpretation Comments BUN (test code = BUN) 7 7-22 [facility]2015-08-13 20:02:00 Test Item Value Reference Range Interpretation Comments Glucose Lvl (test code = Glucose Lvl) 87 70-99 [facility]2015-08-13 20:02:00 Test Item Value Reference Range Interpretation Comments Sodium Lvl (test code = Sodium Lvl) 138 135-145 [facility]2015-08-13 20:02:00 Test Item Value Reference Range Interpretation Comments Chloride Lvl (test code = Chloride Lvl) 104 95-109 [facility]2015-08-13 20:02:00 Test Item Value Reference Range Interpretation Comments Potassium Lvl (test code = Potassium 3.5 3.5-5.1 Lvl) [facility]2015-08-13 20:02:00 Test Item Value Reference Range Interpretation Comments Creatinine Lvl (test code = Creatinine 0.8 0.5-1.4 Lvl) [facility]2015-08-13 20:02:00 Test Item Value Reference Range Interpretation Comments Total Protein (test code = Total 8.2 6.4-8.4 Protein) [facility]2015-08-13 20:02:00 Test Item Value Reference Range Interpretation Comments AST (test code = AST) 17 See_Comment [Auto mated message] The system which ge nerated this result transmit kuldip reference range : <=37. The reference range was not used to interpr et this result as abiodun l/abnormal. [facility]2015-08-13 20:02:00 Test Item Value Reference Range Interpretation Comments Globulin (test code = Globulin) 5.0 2.0-4.0 [facility]2015-08-13 20:02:00 Test Item Value Reference Range Interpretation Comments A/G Ratio (test code = A/G Ratio) 0.6 0.7-1.6 [place] [id number] 20:02:00 Test Item Value Reference Range Interpretation Comments B/C Ratio (test code = B/C Ratio) 9 6-25 [facility]2015-08-13 20:02:00 Test Item Value Reference Range Interpretation Comments AGAP (test code = AGAP) 10.5 10.0-20.0 [facility]2015-08-13 20:02:00 Test Item Value Reference Range Interpretation Comments Alk Phos (test code = Alk Phos) 83 39-136 [facility]2015-08-13 20:02:00 Test Item Value Reference Range Interpretation Comments Albumin Lvl (test code = Albumin Lvl) 3.2 3.5-5.0 [facility]2015-08-13 20:02:00 Test Item Value Reference Range Interpretation Comments ALT (test code = ALT) 18 See_Comment [Auto mated message] The system which ge nerated this result transmit kuldip reference range : <=65. The reference range was not used to interpr et this result as abiodun l/abnormal. [facility] CenterOiilasxFUPCMDWTLD9961-84-71 20:02:00 Test Item Value Reference Range Interpretation Comments PTT (test code = PTT) 29.7 s 22.9-35.8 [facility] CenterOozaeyyUMDWVIIPTN6146-62-15 20:02:00 Test Item Value Reference Range Interpretation Comments PT (test code = PT) 15.1 s 12.0-14.7 [facility] CenterHjarfxoHBCJFCIMRL9191-25-96 20:02:00 Test Item Value Reference Range Interpretation Comments INR (test code = INR) 1.18 0.85-1.17 [facility] CenterAjtffpuWNRUMWXEXE6548-72-38 20:02:00 Test Item Value Reference Range Interpretation Comments WBC (test code = WBC) 5.0 3.7-10.4 [facility] CenterJsgjfyyQORZLZNMSI3238-36-49 20:02:00 Test Item Value Reference Range Interpretation Comments RBC (test code = RBC) 4.01 4.20-5.40 [facility] CenterYyifscoCURPPJVVQE6601-34-00 20:02:00 Test Item Value Reference Range Interpretation Comments Hgb (test code = Hgb) 8.2 12.0-16.0 [facility] CenterIwtiwihGOPIIWOMRV9295-10-31 20:02:00 Test Item Value Reference Range Interpretation Comments MPV (test code = MPV) 7.6 7.4-10.4 [facility] CenterEtfghxaAGPZDEFOVU0428-42-30 20:02:00 Test Item Value Reference Range Interpretation Comments RDW (test code = RDW) 17.2 11.5-14.5 [facility] CenterChajqweMFDXUJHBFD7945-58-88 20:02:00 Test Item Value Reference Range Interpretation Comments Platelet (test code = Platelet) 281 133-450 [facility] CenterGgwugdpCNCEGHPJDR4464-62-32 20:02:00 Test Item Value Reference Range Interpretation Comments MCH (test code = MCH) 20.4 pg 27.0-31.0 [facility] CenterNqpjckyKDSRHPIHST8242-57-50 20:02:00 Test Item Value Reference Range Interpretation Comments MCHC (test code = MCHC) 29.8 32.0-36.0 [facility] CenterAiefiopVOZLPAWEPZ5914-31-34 20:02:00 Test Item Value Reference Range Interpretation Comments MCV (test code = MCV) 68.4 80.0-98.0 [facility] CenterDrooeemHAIEJDGNKN7648-15-06 20:02:00 Test Item Value Reference Range Interpretation Comments Hct (test code = Hct) 27.4 36.0-48.0 [facility] CenterKoelnqaHMJWEHQUIT4815-78-78 20:02:00 Test Item Value Reference Range Interpretation Comments Segs (test code = Segs) 63.4 45.0-75.0 [facility] CenterUofcvbfETTJGDRPOE3173-92-13 20:02:00 Test Item Value Reference Range Interpretation Comments Hypochrom (test code = 1+ (11/05/14 3:02 PM) Hypochrom) [facility] CenterRcaonoiMAFEOMTEVD6764-01-07 20:02:00 Test Item Value Reference Range Interpretation Comments Monocytes (test code = Monocytes) 10.2 2.0-12.0 [facility] CenterFzaukfkQXZXLNCECN0103-55-03 20:02:00 Test Item Value Reference Range Interpretation Comments Eosinophils (test code = 1.5 See_Comment [A utomated message] The Eosinophils) system which ge nerated this result tra nsmitted reference range : <=4.0. The reference r nilam was not used to int erpret this result as normal/abnormal . [facility] CenterTxgbdgnMVSMWZEYZX6645-83-55 20:02:00 Test Item Value Reference Range Interpretation Comments Basophils (test code = 0.3 See_Comment [Aut omated message] The Basophils) system which ge nerated this result tra nsmitted reference range : <=1.0. The reference r nilam was not used to int erpret this result as normal/abnormal . [facility] CenterRehmdouYMABNDQORJ0834-09-33 20:02:00 Test Item Value Reference Range Interpretation Comments Lymphocytes (test code = Lymphocytes) 24.6 20.0-40.0 [facility] CenterYnkjgmyKQVUBCTDLG6754-01-37 20:02:00 Test Item Value Reference Range Interpretation Comments Plt Morph (test code = Normal (11/05/14 3:02 Plt Morph) PM) [facility] CenterSfxthqaEJCKRJFCZP2446-01-88 20:02:00 Test Item Value Reference Range Interpretation Comments RBC Morph (test code = See Note (11/05/14 3:02 RBC Morph) PM) [facility] CenterBnjwcbqIXAYGFXIRY7838-52-86 20:02:00 Test Item Value Reference Range Interpretation Comments Lymphocytes # (test code = Lymphocytes 1.2 1.0-5.5 #) [facility] CenterImgpmktZXBTWMYRJH0262-13-21 20:02:00 Test Item Value Reference Range Interpretation Comments Monocytes # (test code 0.5 See_Comment [Aut omated message] The = Monocytes #) system which generated this result tra nsmitted reference range : <=0.8. The reference r nilam was not used to int erpret this result as normal/abnormal . [facility] CenterTqpichkVKFHXFPSCZ0006-21-97 20:02:00 Test Item Value Reference Range Interpretation Comments Segs-Bands # (test code = Segs-Bands #) 3.2 1.5-8.1 [facility] CenterItukpxeRFMDRIVOVV8045-55-09 20:02:00 Test Item Value Reference Range Interpretation Comments Microcyte (test code = 3+ *NA*(11/05/14 3:02 Microcyte) PM) [facility] CenterIefebpgMNSGMJDOFN7454-94-26 20:02:00 Test Item Value Reference Range Interpretation Comments Eosinophils # (test code 0.1 See_Comment [A utomated message] The = Eosinophils #) system whic h generated this result tra nsmitted reference range : <=0.5. The reference r nilam was not used to int erpret this result as normal/abnormal . [facility] [id number] 20:02:00 Test Item Value Reference Range Interpretation Comments CK MB (test code = CK MB) no gt 0.5-3.6 [facility] iSnapannCARDIAC LEOXXET5304-01-71 20:02:00 Test Item Value Reference Range Interpretation Comments Troponin-I (test code no gt See_Comment [Auto mated message] The = Troponin-I) system which g enerated this result transmit kuldip reference range : <=0.40. The reference r nilam was not used to interpr et this result as abiodun l/abnormal. [facility] [employer] [id number] 20:02:00 Test Item Value Reference Range Interpretation Comments Total CK (test code = Total CK) 148 12-191 [facility] [employer] [id number] 20:02:00 Test Item Value Reference Range Interpretation Comments CK MB Index (test no gt See_Comment [Automate d message] The code = CK MB Index) system w [facility] generated this result transmit kuldip reference range : <=2.5. The reference range was not used to interpr et this result as abiodun l/abnormal. [employer] [id number] 20:02:00 Test Item Value Reference Range Interpretation Comments eGFR (test code = eGFR) 104 [facility] [employer] [id number] 20:02:00 Test Item Value Reference Range Interpretation Comments CO2 (test code = CO2) 27 24-32 [facility] [employer] [id number] 20:02:00 Test Item Value Reference Range Interpretation Comments Calcium Lvl (test code = Calcium Lvl) 9.8 8.5-10.5 [facility] [employer] [id number] 20:02:00 Test Item Value Reference Range Interpretation Comments Bili Total (test code = Bili Total) 0.3 0.2-1.3 [facility] [employer] [id number] 20:02:00 Test Item Value Reference Range Interpretation Comments BUN (test code = BUN) 7 7-22 [facility] [employer] [id number] 20:02:00 Test Item Value Reference Range Interpretation Comments Glucose Lvl (test code = Glucose Lvl) 87 70-99 [facility] [employer] [id number] 20:02:00 Test Item Value Reference Range Interpretation Comments Sodium Lvl (test code = Sodium Lvl) 138 135-145 [facility]2015-08-13 20:02:00 Test Item Value Reference Range Interpretation Comments Chloride Lvl (test code = Chloride Lvl) 104 95-109 [facility]2015-08-13 20:02:00 Test Item Value Reference Range Interpretation Comments Potassium Lvl (test code = Potassium 3.5 3.5-5.1 Lvl) [facility]2015-08-13 20:02:00 Test Item Value Reference Range Interpretation Comments Creatinine Lvl (test code = Creatinine 0.8 0.5-1.4 Lvl) [facility]2015-08-13 20:02:00 Test Item Value Reference Range Interpretation Comments Total Protein (test code = Total 8.2 6.4-8.4 Protein) [facility]2015-08-13 20:02:00 Test Item Value Reference Range Interpretation Comments AST (test code = AST) 17 See_Comment [Auto mated message] The system which ge nerated this result transmit kuldip reference range : <=37. The reference range was not used to interpr et this result as abiodun l/abnormal. [facility]2015-08-13 20:02:00 Test Item Value Reference Range Interpretation Comments Globulin (test code = Globulin) 5.0 2.0-4.0 [facility]2015-08-13 20:02:00 Test Item Value Reference Range Interpretation Comments A/G Ratio (test code = A/G Ratio) 0.6 0.7-1.6 [facility]2015-08-13 20:02:00 Test Item Value Reference Range Interpretation Comments B/C Ratio (test code = B/C Ratio) 9 6-25 [facility]2015-08-13 20:02:00 Test Item Value Reference Range Interpretation Comments AGAP (test code = AGAP) 10.5 10.0-20.0 [facility]2015-08-13 20:02:00 Test Item Value Reference Range Interpretation Comments Alk Phos (test code = Alk Phos) 83 39-136 [facility]2015-08-13 20:02:00 Test Item Value Reference Range Interpretation Comments Albumin Lvl (test code = Albumin Lvl) 3.2 3.5-5.0 [facility]2015-08-13 20:02:00 Test Item Value Reference Range Interpretation Comments ALT (test code = ALT) 18 See_Comment [Auto mated message] The system which ge nerated this result transmit kuldip reference range : <=65. The reference range was not used to interpr et this result as abiodun l/abnormal. [facility] CenterBldxofxJPKCMRAFNQ2692-89-11 20:02:00 Test Item Value Reference Range Interpretation Comments PTT (test code = PTT) 29.7 s 22.9-35.8 [facility] CenterOaflrzaFBUGIXPGTW8809-96-61 20:02:00 Test Item Value Reference Range Interpretation Comments PT (test code = PT) 15.1 s 12.0-14.7 [facility] CenterExnymbyHYWPKJIWMS0208-75-82 20:02:00 Test Item Value Reference Range Interpretation Comments INR (test code = INR) 1.18 0.85-1.17 [facility] CenterRddrtgvWDGVWBIQCV7440-78-42 20:02:00 Test Item Value Reference Range Interpretation Comments WBC (test code = WBC) 5.0 3.7-10.4 [facility] CenterQxlmmgvVFWKWMZBNF1484-29-42 20:02:00 Test Item Value Reference Range Interpretation Comments RBC (test code = RBC) 4.01 4.20-5.40 [facility] CenterRspszzrHIACRURPZU8173-60-96 20:02:00 Test Item Value Reference Range Interpretation Comments Hgb (test code = Hgb) 8.2 12.0-16.0 [facility] CenterAjhbpstPGHLMJUEHA7820-26-00 20:02:00 Test Item Value Reference Range Interpretation Comments MPV (test code = MPV) 7.6 7.4-10.4 [facility] CenterZlaspwvLWVIMUWOJU1530-38-24 20:02:00 Test Item Value Reference Range Interpretation Comments RDW (test code = RDW) 17.2 11.5-14.5 [facility] CenterRxvjnogNRBTREVULK4418-26-01 20:02:00 Test Item Value Reference Range Interpretation Comments Platelet (test code = Platelet) 281 133-450 [facility] CenterTwprjhvBWSLTRLESV3181-66-69 20:02:00 Test Item Value Reference Range Interpretation Comments MCH (test code = MCH) 20.4 pg 27.0-31.0 [facility] CenterWljqyqcYVXBTSWISH7802-99-56 20:02:00 Test Item Value Reference Range Interpretation Comments MCHC (test code = MCHC) 29.8 32.0-36.0 [facility] CenterHymvejnGLOSCFFEXW0233-17-25 20:02:00 Test Item Value Reference Range Interpretation Comments MCV (test code = MCV) 68.4 80.0-98.0 [facility] CenterWriqoqjKVINEQEFVB4868-30-62 20:02:00 Test Item Value Reference Range Interpretation Comments Hct (test code = Hct) 27.4 36.0-48.0 [facility] CenterVomqlmeWIPXLQOCTV5166-78-09 20:02:00 Test Item Value Reference Range Interpretation Comments Segs (test code = Segs) 63.4 45.0-75.0 [facility] CenterNabtkiaHBIKLWPKQH3691-71-18 20:02:00 Test Item Value Reference Range Interpretation Comments Hypochrom (test code = 1+ (11/05/14 3:02 PM) Hypochrom) [facility] CenterQlchwldNANBBXVUEI6053-05-73 20:02:00 Test Item Value Reference Range Interpretation Comments Monocytes (test code = Monocytes) 10.2 2.0-12.0 [facility] CenterNfizvovTNPNZIEORT1117-76-65 20:02:00 Test Item Value Reference Range Interpretation Comments Eosinophils (test code = 1.5 See_Comment [A utomated message] The Eosinophils) system which ge nerated this result tra nsmitted reference range : <=4.0. The reference r nilam was not used to int erpret this result as normal/abnormal . [facility] CenterYshlbizQVKJTKKEFC9513-61-56 20:02:00 Test Item Value Reference Range Interpretation Comments Basophils (test code = 0.3 See_Comment [Aut omated message] The Basophils) system which ge nerated this result tra nsmitted reference range : <=1.0. The reference r nilam was not used to int erpret this result as normal/abnormal . [facility] CenterGsiuxqiKFXNKQIPKI1860-38-98 20:02:00 Test Item Value Reference Range Interpretation Comments Lymphocytes (test code = Lymphocytes) 24.6 20.0-40.0 [facility] CenterKbmvmghDTPKXITLLX0378-62-75 20:02:00 Test Item Value Reference Range Interpretation Comments Plt Morph (test code = Normal (11/05/14 3:02 Plt Morph) PM) [facility] CenterIfomnztWDQDUBPWPB5974-73-11 20:02:00 Test Item Value Reference Range Interpretation Comments RBC Morph (test code = See Note (11/05/14 3:02 RBC Morph) PM) [facility] CenterMwazcmvJKCAKHLUDN7234-98-20 20:02:00 Test Item Value Reference Range Interpretation Comments Lymphocytes # (test code = Lymphocytes 1.2 1.0-5.5 #) [facility] CenterUscycgsDOBYWQDNIV6363-07-96 20:02:00 Test Item Value Reference Range Interpretation Comments Monocytes # (test code 0.5 See_Comment [Aut omated message] The = Monocytes #) system which generated this result tra nsmitted reference range : <=0.8. The reference r nilam was not used to int erpret this result as normal/abnormal . [facility] CenterTahqujoAYTBBUROCX8847-04-42 20:02:00 Test Item Value Reference Range Interpretation Comments Segs-Bands # (test code = Segs-Bands #) 3.2 1.5-8.1 [facility] CenterQsmhwarWKEEMZKEVK5150-29-10 20:02:00 Test Item Value Reference Range Interpretation Comments Microcyte (test code = 3+ *NA*(11/05/14 3:02 Microcyte) PM) [facility] CenterFlicmsbBYTMORDXOZ8616-97-01 20:02:00 Test Item Value Reference Range Interpretation Comments Eosinophils # (test code 0.1 See_Comment [A utomated message] The = Eosinophils #) system whic h generated this result tra nsmitted reference range : <=0.5. The reference r nilam was not used to int erpret this result as normal/abnormal . [facility] AND [id number] 18:07:00 Test Item Value Reference Range Interpretation Comments UA Leuk Est (test code Small *ABN*(11/03/14 = UA Leuk Est) 1:07 PM) [facility] AND [id number] 18:07:00 Test Item Value Reference Range Interpretation Comments UA Ketones (test code Negative *NA*(11/03/14 = UA Ketones) 1:07 PM) [facility] AND [id number] 18:07:00 Test Item Value Reference Range Interpretation Comments UA Turbidity (test code Cloudy *ABN*(11/03/14 = UA Turbidity) 1:07 PM) [facility] AND [id number] 18:07:00 Test Item Value Reference Range Interpretation Comments UA Spec Grav (test code = UA Spec 1.010 1 Grav) [facility] AND [id number] 18:07:00 Test Item Value Reference Range Interpretation Comments UA Protein (test code = Trace *ABN*(11/03/14 UA Protein) 1:07 PM) [facility] AND [id number] 18:07:00 Test Item Value Reference Range Interpretation Comments UA pH (test code = UA pH) 7.5 1 5.0-8.0 [facility] AND [id number] 18:07:00 Test Item Value Reference Range Interpretation Comments UA Color (test code = Yellow *NA*(11/03/14 UA Color) 1:07 PM) [facility] AND [id number] 18:07:00 Test Item Value Reference Range Interpretation Comments UA Glucose (test code Negative (11/03/14 1:07 = UA Glucose) PM) [facility] AND [id number] 18:07:00 Test Item Value Reference Range Interpretation Comments UA Blood (test code = Negative (11/03/14 1:07 UA Blood) PM) [facility] AND [id number] 18:07:00 Test Item Value Reference Range Interpretation Comments UA Bili (test code = Negative *NA*(11/03/14 UA Bili) 1:07 PM) [facility] AND [id number] 18:07:00 Test Item Value Reference Range Interpretation Comments UA Urobilinogen (test code = UA 1.0 0.1-1.0 Urobilinogen) [facility] AND [id number] 18:07:00 Test Item Value Reference Range Interpretation Comments UA Nitrite (test code Negative (11/03/14 1:07 = UA Nitrite) PM) [facility] AND [id number] 18:07:00 Test Item Value Reference Range Interpretation Comments UA RBC (test code = 0-2 /HPF See_Comment [Automa kuldip message] The UA RBC) system which ge nerated this result tra nsmitted reference range : <=2. The reference range was not used to interpr et this result as abiodun l/abnormal. [facility] AND [id number] 18:07:00 Test Item Value Reference Range Interpretation Comments UA WBC (test code = UA WBC) 11-20 /HPF [facility] AND [id number] 18:07:00 Test Item Value Reference Range Interpretation Comments UA Sq Epi (test code = UA Sq Epi) Few /LPF [facility] [id number] 18:07:00 Test Item Value Reference Range Interpretation Comments UA Bacteria (test code = UA Many /HPF Bacteria) [facility] [id number] 18:07:00 Test Item Value Reference Range Interpretation Comments U Preg (test code = U Negative (11/03/14 1:07 Preg) PM) [facility] [id number] 18:07:00 Test Item Value Reference Range Interpretation Comments UA Leuk Est (test code Small *ABN*(11/03/14 = UA Leuk Est) 1:07 PM) [facility] [id number] 18:07:00 Test Item Value Reference Range Interpretation Comments UA Ketones (test code Negative *NA*(11/03/14 = UA Ketones) 1:07 PM) [facility] [id number] 18:07:00 Test Item Value Reference Range Interpretation Comments UA Turbidity (test code Cloudy *ABN*(11/03/14 = UA Turbidity) 1:07 PM) [facility] [id number] 18:07:00 Test Item Value Reference Range Interpretation Comments UA Spec Grav (test code = UA Spec 1.010 1 Grav) [facility] [id number] 18:07:00 Test Item Value Reference Range Interpretation Comments UA Protein (test code = Trace *ABN*(11/03/14 UA Protein) 1:07 PM) [facility] [id number] 18:07:00 Test Item Value Reference Range Interpretation Comments UA pH (test code = UA pH) 7.5 1 5.0-8.0 [facility] [id number] 18:07:00 Test Item Value Reference Range Interpretation Comments UA Color (test code = Yellow *NA*(11/03/14 UA Color) 1:07 PM) [facility] [id number] 18:07:00 Test Item Value Reference Range Interpretation Comments UA Glucose (test code Negative (11/03/14 1:07 = UA Glucose) PM) [facility] [id number] 18:07:00 Test Item Value Reference Range Interpretation Comments UA Blood (test code = Negative (11/03/14 1:07 UA Blood) PM) [facility] [id number] 18:07:00 Test Item Value Reference Range Interpretation Comments UA Bili (test code = Negative *NA*(11/03/14 UA Bili) 1:07 PM) [facility] [id number] 18:07:00 Test Item Value Reference Range Interpretation Comments UA Urobilinogen (test code = UA 1.0 0.1-1.0 Urobilinogen) [facility] AND [id number] 18:07:00 Test Item Value Reference Range Interpretation Comments UA Nitrite (test code Negative (11/03/14 1:07 = UA Nitrite) PM) [facility] AND [id number] 18:07:00 Test Item Value Reference Range Interpretation Comments UA RBC (test code = 0-2 /HPF See_Comment [Automa kuldip message] The UA RBC) system which ge nerated this result tra nsmitted reference range : <=2. The reference range was not used to interpr et this result as abiodun l/abnormal. [facility] AND [id number] 18:07:00 Test Item Value Reference Range Interpretation Comments UA WBC (test code = UA WBC) 11-20 /HPF [facility] AND [id number] 18:07:00 Test Item Value Reference Range Interpretation Comments UA Sq Epi (test code = UA Sq Epi) Few /LPF [facility] AND [id number] 18:07:00 Test Item Value Reference Range Interpretation Comments UA Bacteria (test code = UA Many /HPF Bacteria) [facility] [id number] 18:07:00 Test Item Value Reference Range Interpretation Comments U Preg (test code = U Negative (11/03/14 1:07 Preg) PM) [facility] AND [id number] 18:07:00 Test Item Value Reference Range Interpretation Comments UA Leuk Est (test code Small *ABN*(11/03/14 = UA Leuk Est) 1:07 PM) [facility] AND [id number] 18:07:00 Test Item Value Reference Range Interpretation Comments UA Ketones (test code Negative *NA*(11/03/14 = UA Ketones) 1:07 PM) [facility] AND [id number] 18:07:00 Test Item Value Reference Range Interpretation Comments UA Turbidity (test code Cloudy *ABN*(11/03/14 = UA Turbidity) 1:07 PM) [facility] AND [id number] 18:07:00 Test Item Value Reference Range Interpretation Comments UA Spec Grav (test code = UA Spec 1.010 1 Grav) [facility] AND [id number] 18:07:00 Test Item Value Reference Range Interpretation Comments UA Protein (test code = Trace *ABN*(11/03/14 UA Protein) 1:07 PM) [facility] AND [id number] 18:07:00 Test Item Value Reference Range Interpretation Comments UA pH (test code = UA pH) 7.5 1 5.0-8.0 [facility] AND [id number] 18:07:00 Test Item Value Reference Range Interpretation Comments UA Color (test code = Yellow *NA*(11/03/14 UA Color) 1:07 PM) [facility] AND [id number] 18:07:00 Test Item Value Reference Range Interpretation Comments UA Glucose (test code Negative (11/03/14 1:07 = UA Glucose) PM) [facility] AND [id number] 18:07:00 Test Item Value Reference Range Interpretation Comments UA Blood (test code = Negative (11/03/14 1:07 UA Blood) PM) [facility] AND [id number] 18:07:00 Test Item Value Reference Range Interpretation Comments UA Bili (test code = Negative *NA*(11/03/14 UA Bili) 1:07 PM) [facility] AND [id number] 18:07:00 Test Item Value Reference Range Interpretation Comments UA Urobilinogen (test code = UA 1.0 0.1-1.0 Urobilinogen) [facility] AND [id number] 18:07:00 Test Item Value Reference Range Interpretation Comments UA Nitrite (test code Negative (11/03/14 1:07 = UA Nitrite) PM) [facility] AND [id number] 18:07:00 Test Item Value Reference Range Interpretation Comments UA RBC (test code = 0-2 /HPF See_Comment [Automa kuldip message] The UA RBC) system which ge nerated this result tra nsmitted reference range : <=2. The reference range was not used to interpr et this result as abiodun l/abnormal. [facility] AND [id number] 18:07:00 Test Item Value Reference Range Interpretation Comments UA WBC (test code = UA WBC) 11-20 /HPF [facility] AND [id number] 18:07:00 Test Item Value Reference Range Interpretation Comments UA Sq Epi (test code = UA Sq Epi) Few /LPF [facility] AND [id number] 18:07:00 Test Item Value Reference Range Interpretation Comments UA Bacteria (test code = UA Many /HPF Bacteria) [facility] [id number] 18:07:00 Test Item Value Reference Range Interpretation Comments U Preg (test code = U Negative (11/03/14 1:07 Preg) PM) [facility] AND [id number] 18:07:00 Test Item Value Reference Range Interpretation Comments UA Leuk Est (test code Small *ABN*(11/03/14 = UA Leuk Est) 1:07 PM) [facility] AND [id number] 18:07:00 Test Item Value Reference Range Interpretation Comments UA Ketones (test code Negative *NA*(11/03/14 = UA Ketones) 1:07 PM) [facility] AND [id number] 18:07:00 Test Item Value Reference Range Interpretation Comments UA Turbidity (test code Cloudy *ABN*(11/03/14 = UA Turbidity) 1:07 PM) [facility] AND [id number] 18:07:00 Test Item Value Reference Range Interpretation Comments UA Spec Grav (test code = UA Spec 1.010 1 Grav) [facility] AND [id number] 18:07:00 Test Item Value Reference Range Interpretation Comments UA Protein (test code = Trace *ABN*(11/03/14 UA Protein) 1:07 PM) [facility] AND [id number] 18:07:00 Test Item Value Reference Range Interpretation Comments UA pH (test code = UA pH) 7.5 1 5.0-8.0 [facility] AND [id number] 18:07:00 Test Item Value Reference Range Interpretation Comments UA Color (test code = Yellow *NA*(11/03/14 UA Color) 1:07 PM) [facility] AND [id number] 18:07:00 Test Item Value Reference Range Interpretation Comments UA Glucose (test code Negative (11/03/14 1:07 = UA Glucose) PM) [facility] AND [id number] 18:07:00 Test Item Value Reference Range Interpretation Comments UA Blood (test code = Negative (11/03/14 1:07 UA Blood) PM) [facility] AND [id number] 18:07:00 Test Item Value Reference Range Interpretation Comments UA Bili (test code = Negative *NA*(11/03/14 UA Bili) 1:07 PM) [facility] AND [id number] 18:07:00 Test Item Value Reference Range Interpretation Comments UA Urobilinogen (test code = UA 1.0 0.1-1.0 Urobilinogen) [facility] AND [id number] 18:07:00 Test Item Value Reference Range Interpretation Comments UA Nitrite (test code Negative (11/03/14 1:07 = UA Nitrite) PM) [facility] AND [id number] 18:07:00 Test Item Value Reference Range Interpretation Comments UA RBC (test code = 0-2 /HPF See_Comment [Automa kuldip message] The UA RBC) system which ge nerated this result tra nsmitted reference range : <=2. The reference range was not used to interpr et this result as abiodun l/abnormal. [facility] AND [id number] 18:07:00 Test Item Value Reference Range Interpretation Comments UA WBC (test code = UA WBC) 11-20 /HPF [facility] AND [id number] 18:07:00 Test Item Value Reference Range Interpretation Comments UA Sq Epi (test code = UA Sq Epi) Few /LPF [facility] AND [id number] 18:07:00 Test Item Value Reference Range Interpretation Comments UA Bacteria (test code = UA Many /HPF Bacteria) [facility] [id number] 18:07:00 Test Item Value Reference Range Interpretation Comments U Preg (test code = U Negative (11/03/14 1:07 Preg) PM) [facility] [id number] 18:07:00 Test Item Value Reference Range Interpretation Comments UA Leuk Est (test code Small *ABN*(11/03/14 = UA Leuk Est) 1:07 PM) [facility] [id number] 18:07:00 Test Item Value Reference Range Interpretation Comments UA Ketones (test code Negative *NA*(11/03/14 = UA Ketones) 1:07 PM) [facility] [id number] 18:07:00 Test Item Value Reference Range Interpretation Comments UA Turbidity (test code Cloudy *ABN*(11/03/14 = UA Turbidity) 1:07 PM) [facility] [id number] 18:07:00 Test Item Value Reference Range Interpretation Comments UA Spec Grav (test code = UA Spec 1.010 1 Grav) [facility] AND [id number] 18:07:00 Test Item Value Reference Range Interpretation Comments UA Protein (test code = Trace *ABN*(11/03/14 UA Protein) 1:07 PM) [facility] AND [id number] 18:07:00 Test Item Value Reference Range Interpretation Comments UA pH (test code = UA pH) 7.5 1 5.0-8.0 [facility] AND [id number] 18:07:00 Test Item Value Reference Range Interpretation Comments UA Color (test code = Yellow *NA*(11/03/14 UA Color) 1:07 PM) [facility] AND [id number] 18:07:00 Test Item Value Reference Range Interpretation Comments UA Glucose (test code Negative (11/03/14 1:07 = UA Glucose) PM) [facility] [id number] 18:07:00 Test Item Value Reference Range Interpretation Comments UA Blood (test code = Negative (11/03/14 1:07 UA Blood) PM) [facility] [id number] 18:07:00 Test Item Value Reference Range Interpretation Comments UA Bili (test code = Negative *NA*(11/03/14 UA Bili) 1:07 PM) [facility] [id number] 18:07:00 Test Item Value Reference Range Interpretation Comments UA Urobilinogen (test code = UA 1.0 0.1-1.0 Urobilinogen) [facility] [id number] 18:07:00 Test Item Value Reference Range Interpretation Comments UA Nitrite (test code Negative (11/03/14 1:07 = UA Nitrite) PM) [facility] [id number] 18:07:00 Test Item Value Reference Range Interpretation Comments UA RBC (test code = 0-2 /HPF See_Comment [Automa kuldip message] The UA RBC) system which ge nerated this result tra nsmitted reference range : <=2. The reference range was not used to interpr et this result as abiodun l/abnormal. [facility] AND [id number] 18:07:00 Test Item Value Reference Range Interpretation Comments UA WBC (test code = UA WBC) 11-20 /HPF [facility] AND [id number] 18:07:00 Test Item Value Reference Range Interpretation Comments UA Sq Epi (test code = UA Sq Epi) Few /LPF [facility] AND [id number] 18:07:00 Test Item Value Reference Range Interpretation Comments UA Bacteria (test code = UA Many /HPF Bacteria) [facility] [id number] 18:07:00 Test Item Value Reference Range Interpretation Comments U Preg (test code = U Negative (11/03/14 1:07 Preg) PM) [facility] AND [id number] 18:07:00 Test Item Value Reference Range Interpretation Comments UA Leuk Est (test code Small *ABN*(11/03/14 = UA Leuk Est) 1:07 PM) [facility] [id number] 18:07:00 Test Item Value Reference Range Interpretation Comments UA Ketones (test code Negative *NA*(11/03/14 = UA Ketones) 1:07 PM) [facility] [id number] 18:07:00 Test Item Value Reference Range Interpretation Comments UA Turbidity (test code Cloudy *ABN*(11/03/14 = UA Turbidity) 1:07 PM) [facility] [id number] 18:07:00 Test Item Value Reference Range Interpretation Comments UA Spec Grav (test code = UA Spec 1.010 1 Grav) [facility] AND [id number] 18:07:00 Test Item Value Reference Range Interpretation Comments UA Protein (test code = Trace *ABN*(11/03/14 UA Protein) 1:07 PM) [facility] AND [id number] 18:07:00 Test Item Value Reference Range Interpretation Comments UA pH (test code = UA pH) 7.5 1 5.0-8.0 [facility] AND [id number] 18:07:00 Test Item Value Reference Range Interpretation Comments UA Color (test code = Yellow *NA*(11/03/14 UA Color) 1:07 PM) [facility] AND [id number] 18:07:00 Test Item Value Reference Range Interpretation Comments UA Glucose (test code Negative (11/03/14 1:07 = UA Glucose) PM) [facility] AND [id number] 18:07:00 Test Item Value Reference Range Interpretation Comments UA Blood (test code = Negative (11/03/14 1:07 UA Blood) PM) [facility] AND [id number] 18:07:00 Test Item Value Reference Range Interpretation Comments UA Bili (test code = Negative *NA*(11/03/14 UA Bili) 1:07 PM) [facility] AND [id number] 18:07:00 Test Item Value Reference Range Interpretation Comments UA Urobilinogen (test code = UA 1.0 0.1-1.0 Urobilinogen) [facility] AND [id number] 18:07:00 Test Item Value Reference Range Interpretation Comments UA Nitrite (test code Negative (11/03/14 1:07 = UA Nitrite) PM) [facility] AND [id number] 18:07:00 Test Item Value Reference Range Interpretation Comments UA RBC (test code = 0-2 /HPF See_Comment [Automa kuldip message] The UA RBC) system which ge nerated this result tra nsmitted reference range : <=2. The reference range was not used to interpr et this result as abiodun l/abnormal. [facility] AND [id number] 18:07:00 Test Item Value Reference Range Interpretation Comments UA WBC (test code = UA WBC) 11-20 /HPF [facility] [id number] 18:07:00 Test Item Value Reference Range Interpretation Comments UA Sq Epi (test code = UA Sq Epi) Few /LPF [facility] [id number] 18:07:00 Test Item Value Reference Range Interpretation Comments UA Bacteria (test code = UA Many /HPF Bacteria) [facility] [id number] 18:07:00 Test Item Value Reference Range Interpretation Comments U Preg (test code = U Negative (11/03/14 1:07 Preg) PM) [facility] AND [id number] 18:07:00 Test Item Value Reference Range Interpretation Comments UA Leuk Est (test code Small *ABN*(11/03/14 = UA Leuk Est) 1:07 PM) [facility] [id number] 18:07:00 Test Item Value Reference Range Interpretation Comments UA Ketones (test code Negative *NA*(11/03/14 = UA Ketones) 1:07 PM) [facility] [id number] 18:07:00 Test Item Value Reference Range Interpretation Comments UA Turbidity (test code Cloudy *ABN*(11/03/14 = UA Turbidity) 1:07 PM) [facility] [id number] 18:07:00 Test Item Value Reference Range Interpretation Comments UA Spec Grav (test code = UA Spec 1.010 1 Grav) [facility] AND [id number] 18:07:00 Test Item Value Reference Range Interpretation Comments UA Protein (test code = Trace *ABN*(11/03/14 UA Protein) 1:07 PM) [facility] [id number] 18:07:00 Test Item Value Reference Range Interpretation Comments UA pH (test code = UA pH) 7.5 1 5.0-8.0 [facility] AND [id number] 18:07:00 Test Item Value Reference Range Interpretation Comments UA Color (test code = Yellow *NA*(11/03/14 UA Color) 1:07 PM) [facility] [id number] 18:07:00 Test Item Value Reference Range Interpretation Comments UA Glucose (test code Negative (8/11/15 1:07 = UA Glucose) PM) [facility] AND [id number] 18:07:00 Test Item Value Reference Range Interpretation Comments UA Blood (test code = Negative (11/03/14 1:07 UA Blood) PM) [facility] AND [id number] 18:07:00 Test Item Value Reference Range Interpretation Comments UA Bili (test code = Negative *NA*(11/03/14 UA Bili) 1:07 PM) [facility] AND [id number] 18:07:00 Test Item Value Reference Range Interpretation Comments UA Urobilinogen (test code = UA 1.0 0.1-1.0 Urobilinogen) [facility] AND [id number] 18:07:00 Test Item Value Reference Range Interpretation Comments UA Nitrite (test code Negative (11/03/14 1:07 = UA Nitrite) PM) [facility] AND [id number] 18:07:00 Test Item Value Reference Range Interpretation Comments UA RBC (test code = 0-2 /HPF See_Comment [Automa kuldip message] The UA RBC) system which ge nerated this result tra nsmitted reference range : <=2. The reference range was not used to interpr et this result as abiodun l/abnormal. [facility] AND [id number] 18:07:00 Test Item Value Reference Range Interpretation Comments UA WBC (test code = UA WBC) 11-20 /HPF [facility] AND [id number] 18:07:00 Test Item Value Reference Range Interpretation Comments UA Sq Epi (test code = UA Sq Epi) Few /LPF [facility] AND [id number] 18:07:00 Test Item Value Reference Range Interpretation Comments UA Bacteria (test code = UA Many /HPF Bacteria) [facility] [id number] 18:07:00 Test Item Value Reference Range Interpretation Comments U Preg (test code = U Negative (11/03/14 1:07 Preg) PM) [facility] [id number] 16:45:00 Test Item Value Reference Range Interpretation Comments Troponin-I (test code no gt See_Comment [Auto mated message] The = Troponin-I) system which g enerated this result transmit kuldip reference range : <=0.40. The reference r nilam was not used to interpr et this result as abiodun l/abnormal. [facility] HospitalDream [id number] 16:45:00 Test Item Value Reference Range Interpretation Comments Troponin-I (test code no gt See_Comment [Auto mated message] The = Troponin-I) system which g enerated this result transmit kuldip reference range : <=0.40. The reference r nilam was not used to interpr et this result as abiodun l/abnormal. [facility] HospitalDream [id number] 16:45:00 Test Item Value Reference Range Interpretation Comments Troponin-I (test code no gt See_Comment [Auto mated message] The = Troponin-I) system which g enerated this result transmit kuldip reference range : <=0.40. The reference r nilam was not used to interpr et this result as abiodun l/abnormal. [facility] 16:45:00 Test Item Value Reference Range Interpretation Comments Troponin-I (test code no gt See_Comment [Auto mated message] The = Troponin-I) system which g enerated this result transmit kuldip reference range : <=0.40. The reference r nilam was not used to interpr et this result as abiodun l/abnormal. [facility] HospitalD[facility] [id number] 16:45:00 Test Item Value Reference Range Interpretation Comments Troponin-I (test code no gt See_Comment [Auto mated message] The = Troponin-I) system which g enerated this result transmit kuldip reference range : <=0.40. The reference r nilam was not used to interpr et this result as abiodun l/abnormal. [facility] HospitalDream [id number] 16:45:00 Test Item Value Reference Range Interpretation Comments Troponin-I (test code no gt See_Comment [Auto mated message] The = Troponin-I) system which g enerated this result transmit kuldip reference range : <=0.40. The reference r nilam was not used to interpr et this result as abiodun l/abnormal. [facility] 16:45:00 Test Item Value Reference Range Interpretation Comments Troponin-I (test code no gt See_Comment [Auto mated message] The = Troponin-I) system which g enerated this result transmit kuldip reference range : <=0.40. The reference r nilam was not used to interpr et this result as abiodun l/abnormal. [facility] [employer]42 [id number] 14:00:00 Test Item Value Reference Range Interpretation Comments Troponin-I (test code no gt See_Comment [Auto mated message] The = Troponin-I) system which g enerated this result transmit kuldip reference range : <=0.40. The reference r nilam was not used to interpr et this result as abiodun l/abnormal. [employer] [id number] 14:00:00 Test Item Value Reference Range Interpretation Comments Total CK (test code = Total CK) 196 12-191 [facility] Code42 [id number] 14:00:00 Test Item Value Reference Range Interpretation Comments CK MB (test code = CK MB) 0.5 0.5-3.6 [facility] [employer]2015-08-11 14:00:00 Test Item Value Reference Range Interpretation Comments proBNP (test code = 18 See_Comment [Automa kuldip message] The proBNP) system which ge nerated this result tra nsmitted reference range : <=125. The reference r nilam was not used to int erpret this result as baiodun l/abnormal. [facility] [employer]2015-08-11 14:00:00 Test Item Value Reference Range Interpretation Comments CK MB Index (test 0.3 See_Comment [Automate d message] The code = CK MB Index) system w [facility] generated this result transmit kuldip reference range : <=2.5. The reference range was not used to interpr et this result as abiodun l/abnormal. [employer] [id number] 14:00:00 Test Item Value Reference Range Interpretation Comments eGFR (test code = eGFR) 111 [facility] [employer] [id number] 14:00:00 Test Item Value Reference Range Interpretation Comments Chloride Lvl (test code = Chloride Lvl) 103 95-109 [facility] [employer] [id number] 14:00:00 Test Item Value Reference Range Interpretation Comments BUN (test code = BUN) 6 7-22 [facility] [employer] [id number] 14:00:00 Test Item Value Reference Range Interpretation Comments Creatinine Lvl (test code = Creatinine 0.8 0.5-1.4 Lvl) [facility]2015-08-11 14:00:00 Test Item Value Reference Range Interpretation Comments Sodium Lvl (test code = Sodium Lvl) 138 135-145 [facility]2015-08-11 14:00:00 Test Item Value Reference Range Interpretation Comments Potassium Lvl (test code = Potassium 3.7 3.5-5.1 Lvl) [facility]2015-08-11 14:00:00 Test Item Value Reference Range Interpretation Comments Calcium Lvl (test code = Calcium Lvl) 9.5 8.5-10.5 [facility]2015-08-11 14:00:00 Test Item Value Reference Range Interpretation Comments Total Protein (test code = Total 8.2 6.4-8.4 Protein) [facility]2015-08-11 14:00:00 Test Item Value Reference Range Interpretation Comments CO2 (test code = CO2) 28 24-32 [facility]2015-08-11 14:00:00 Test Item Value Reference Range Interpretation Comments Bili Total (test code = Bili Total) 0.5 0.2-1.3 [facility]2015-08-11 14:00:00 Test Item Value Reference Range Interpretation Comments AGAP (test code = AGAP) 10.7 10.0-20.0 [place] [id number] 14:00:00 Test Item Value Reference Range Interpretation Comments B/C Ratio (test code = B/C Ratio) 8 6-25 [facility]2015-08-11 14:00:00 Test Item Value Reference Range Interpretation Comments Globulin (test code = Globulin) 5.0 2.0-4.0 [facility]2015-08-11 14:00:00 Test Item Value Reference Range Interpretation Comments A/G Ratio (test code = A/G Ratio) 0.6 0.7-1.6 [facility]2015-08-11 14:00:00 Test Item Value Reference Range Interpretation Comments AST (test code = AST) 16 See_Comment [Auto mated message] The system which ge nerated this result transmit kuldip reference range : <=37. The reference range was not used to interpr et this result as abiodun l/abnormal. [facility]2015-08-11 14:00:00 Test Item Value Reference Range Interpretation Comments Glucose Lvl (test code = Glucose Lvl) 88 70-99 [facility]2015-08-11 14:00:00 Test Item Value Reference Range Interpretation Comments ALT (test code = ALT) 20 See_Comment [Auto mated message] The system which ge nerated this result transmit kuldip reference range : <=65. The reference range was not used to interpr et this result as abiodun l/abnormal. [facility]2015-08-11 14:00:00 Test Item Value Reference Range Interpretation Comments Albumin Lvl (test code = Albumin Lvl) 3.2 3.5-5.0 [facility]2015-08-11 14:00:00 Test Item Value Reference Range Interpretation Comments Alk Phos (test code = Alk Phos) 85 39-136 [facility]HzghtkmSDNZTLXCJJ4004-06-17 14:00:00 Test Item Value Reference Range Interpretation Comments Basophils (test code = 0.8 See_Comment [Aut omated message] The Basophils) system which ge nerated this result tra nsmitted reference range : <=1.0. The reference r nilam was not used to int erpret this result as normal/abnormal . [facility] CenterHldzqijROHXVNNSGO7982-19-08 14:00:00 Test Item Value Reference Range Interpretation Comments Lymphocytes # (test code = Lymphocytes 1.3 1.0-5.5 #) [facility] CenterKjszqqxHTVQDSERKK1190-98-43 14:00:00 Test Item Value Reference Range Interpretation Comments Segs-Bands # (test code = Segs-Bands #) 2.4 1.5-8.1 [facility] CenterXwujxuqJDVZPQHBWH8636-07-02 14:00:00 Test Item Value Reference Range Interpretation Comments Monocytes # (test code 0.4 See_Comment [Aut omated message] The = Monocytes #) system which generated this result tra nsmitted reference range : <=0.8. The reference r nilam was not used to int erpret this result as normal/abnormal . [facility] CenterMpjsoyjZTGQCAZSSJ0889-36-44 14:00:00 Test Item Value Reference Range Interpretation Comments Microcyte (test code = 3+ *NA*(11/03/14 9:00 Microcyte) AM) [facility] CenterJgcxftrTJUXXMXRXS9687-20-56 14:00:00 Test Item Value Reference Range Interpretation Comments Eosinophils # (test code 0.1 See_Comment [A utomated message] The = Eosinophils #) system whic h generated this result tra nsmitted reference range : <=0.5. The reference r nilam was not used to int erpret this result as normal/abnormal . [facility] CenterQqdhpsmKCRAZIBIAD4024-73-43 14:00:00 Test Item Value Reference Range Interpretation Comments Segs (test code = Segs) 57.0 45.0-75.0 [facility] CenterWwqiuutXDAVUZFXGT9658-77-77 14:00:00 Test Item Value Reference Range Interpretation Comments Lymphocytes (test code = Lymphocytes) 30.7 20.0-40.0 [facility] CenterOlebprnCQKRWSHTGC1724-40-11 14:00:00 Test Item Value Reference Range Interpretation Comments Eosinophils (test code = 1.7 See_Comment [A utomated message] The Eosinophils) system which ge nerated this result tra nsmitted reference range : <=4.0. The reference r nilam was not used to int erpret this result as normal/abnormal . [facility] CenterZglqbflGQOHOCTWAK8342-94-64 14:00:00 Test Item Value Reference Range Interpretation Comments Monocytes (test code = Monocytes) 9.8 2.0-12.0 [facility] CenterFuhpfwgMUUQZJJNEM0968-19-04 14:00:00 Test Item Value Reference Range Interpretation Comments Plt Morph (test code = Normal (11/03/14 9:00 Plt Morph) AM) [facility] [id number] 14:00:00 Test Item Value Reference Range Interpretation Comments MPV (test code = MPV) 7.6 7.4-10.4 [facility] CenterElosehaPVFKAKZBHX8421-73-96 14:00:00 Test Item Value Reference Range Interpretation Comments Platelet (test code = Platelet) 259 133-450 [facility] CenterNryteafYHOSLRVEED2368-38-68 14:00:00 Test Item Value Reference Range Interpretation Comments MCH (test code = MCH) 20.5 pg 27.0-31.0 [facility] CenterBjgnciuYFGERSDFAO0918-93-96 14:00:00 Test Item Value Reference Range Interpretation Comments MCHC (test code = MCHC) 30.3 32.0-36.0 [facility] CenterYtckropIPMYPERZTJ7339-08-63 14:00:00 Test Item Value Reference Range Interpretation Comments RDW (test code = RDW) 17.4 11.5-14.5 [facility] HospitalUefafkrWMBAYDDDEH5951-72-17 14:00:00 Test Item Value Reference Range Interpretation Comments Hgb (test code = Hgb) 8.1 12.0-16.0 [facility] CenterVtaxjbjKIRAYKSHBV4597-69-59 14:00:00 Test Item Value Reference Range Interpretation Comments Hct (test code = Hct) 26.7 36.0-48.0 [facility] HospitalFoxaugsIJGTJQMKSP0993-70-23 14:00:00 Test Item Value Reference Range Interpretation Comments MCV (test code = MCV) 67.6 80.0-98.0 [facility] CenterDzabunqHAEAUYBMOG6796-81-97 14:00:00 Test Item Value Reference Range Interpretation Comments RBC (test code = RBC) 3.95 4.20-5.40 [facility] CenterMcapyppZXETWQZGBY2535-88-76 14:00:00 Test Item Value Reference Range Interpretation Comments WBC (test code = WBC) 4.2 3.7-10.4 [facility] CenterJtftsqbLBHDUYRSIH8079-23-61 14:00:00 Test Item Value Reference Range Interpretation Comments D-Dimer (test code = D-Dimer) 0.27 [facility] [id number] 14:00:00 Test Item Value Reference Range Interpretation Comments Troponin-I (test code no gt See_Comment [Auto mated message] The = Troponin-I) system which g enerated this result transmit kuldip reference range : <=0.40. The reference r nilam was not used to interpr et this result as abiodun l/abnormal. [facility] HospitalCARDI [id number] 14:00:00 Test Item Value Reference Range Interpretation Comments Total CK (test code = Total CK) 196 12-191 [facility] [id number] 14:00:00 Test Item Value Reference Range Interpretation Comments CK MB (test code = CK MB) 0.5 0.5-3.6 [facility] [facility] [id number] 14:00:00 Test Item Value Reference Range Interpretation Comments proBNP (test code = 18 See_Comment [Automa kuldip message] The proBNP) system which ge nerated this result tra nsmitted reference range : <=125. The reference r nilam was not used to int erpret this result as abiodun l/abnormal. [facility] [id number] 14:00:00 Test Item Value Reference Range Interpretation Comments CK MB Index (test 0.3 See_Comment [Automate d message] The code = CK MB Index) system w [employer] generated this result transmit kuldip reference range : <=2.5. The reference range was not used to interpr et this result as abiodun l/abnormal. [facility] [employer] [id number] 14:00:00 Test Item Value Reference Range Interpretation Comments eGFR (test code = eGFR) 111 [facility] [id number] 14:00:00 Test Item Value Reference Range Interpretation Comments Chloride Lvl (test code = Chloride Lvl) 103 95-109 [facility] [id number] 14:00:00 Test Item Value Reference Range Interpretation Comments BUN (test code = BUN) 6 7-22 [facility] [id number] 14:00:00 Test Item Value Reference Range Interpretation Comments Creatinine Lvl (test code = Creatinine 0.8 0.5-1.4 Lvl) [facility] [id number] 14:00:00 Test Item Value Reference Range Interpretation Comments Sodium Lvl (test code = Sodium Lvl) 138 135-145 [facility] [id number] 14:00:00 Test Item Value Reference Range Interpretation Comments Potassium Lvl (test code = Potassium 3.7 3.5-5.1 Lvl) [facility] [id number] 14:00:00 Test Item Value Reference Range Interpretation Comments Calcium Lvl (test code = Calcium Lvl) 9.5 8.5-10.5 [facility] [id number] 14:00:00 Test Item Value Reference Range Interpretation Comments Total Protein (test code = Total 8.2 6.4-8.4 Protein) [facility] [id number] 14:00:00 Test Item Value Reference Range Interpretation Comments CO2 (test code = CO2) 28 24-32 [facility] [id number] 14:00:00 Test Item Value Reference Range Interpretation Comments Bili Total (test code = Bili Total) 0.5 0.2-1.3 [facility]2015-08-11 14:00:00 Test Item Value Reference Range Interpretation Comments AGAP (test code = AGAP) 10.7 10.0-20.0 [facility]2015-08-11 14:00:00 Test Item Value Reference Range Interpretation Comments B/C Ratio (test code = B/C Ratio) 8 6-25 [facility]2015-08-11 14:00:00 Test Item Value Reference Range Interpretation Comments Globulin (test code = Globulin) 5.0 2.0-4.0 [facility]2015-08-11 14:00:00 Test Item Value Reference Range Interpretation Comments A/G Ratio (test code = A/G Ratio) 0.6 0.7-1.6 [facility]2015-08-11 14:00:00 Test Item Value Reference Range Interpretation Comments AST (test code = AST) 16 See_Comment [Auto mated message] The system which ge nerated this result transmit kuldip reference range : <=37. The reference range was not used to interpr et this result as abiodun l/abnormal. [facility]2015-08-11 14:00:00 Test Item Value Reference Range Interpretation Comments Glucose Lvl (test code = Glucose Lvl) 88 70-99 [facility]2015-08-11 14:00:00 Test Item Value Reference Range Interpretation Comments ALT (test code = ALT) 20 See_Comment [Auto mated message] The system which ge nerated this result transmit kuldip reference range : <=65. The reference range was not used to interpr et this result as abiodun l/abnormal. [facility]2015-08-11 14:00:00 Test Item Value Reference Range Interpretation Comments Albumin Lvl (test code = Albumin Lvl) 3.2 3.5-5.0 [facility]2015-08-11 14:00:00 Test Item Value Reference Range Interpretation Comments Alk Phos (test code = Alk Phos) 85 39-136 [facility] Cent[id number] 14:00:00 Test Item Value Reference Range Interpretation Comments Basophils (test code = 0.8 See_Comment [Aut omated message] The Basophils) system which ge nerated this result tra nsmitted reference range : <=1.0. The reference r nilam was not used to int erpret this result as normal/abnormal . [facility] [id number] 14:00:00 Test Item Value Reference Range Interpretation Comments Lymphocytes # (test code = Lymphocytes 1.3 1.0-5.5 #) [facility] CenterTzmimfvTNNUTFDFPX1135-68-25 14:00:00 Test Item Value Reference Range Interpretation Comments Segs-Bands # (test code = Segs-Bands #) 2.4 1.5-8.1 [facility] CenterWqtnbdrHMRXDOYAUD8074-74-36 14:00:00 Test Item Value Reference Range Interpretation Comments Monocytes # (test code 0.4 See_Comment [Aut omated message] The = Monocytes #) system which generated this result tra nsmitted reference range : <=0.8. The reference r nilam was not used to int erpret this result as normal/abnormal . [facility] CenterFndplkxXWMEASKBGF4685-30-54 14:00:00 Test Item Value Reference Range Interpretation Comments Microcyte (test code = 3+ *NA*(11/03/14 9:00 Microcyte) AM) [facility] CenterQbfglboQNUWBWLCHQ2891-37-01 14:00:00 Test Item Value Reference Range Interpretation Comments Eosinophils # (test code 0.1 See_Comment [A utomated message] The = Eosinophils #) system whic h generated this result tra nsmitted reference range : <=0.5. The reference r nilam was not used to int erpret this result as normal/abnormal . [facility] CenterHewjmosMRAUAPVRBW3572-68-29 14:00:00 Test Item Value Reference Range Interpretation Comments Segs (test code = Segs) 57.0 45.0-75.0 [facility] CenterVefmcqoKKJNFDYAUQ8635-34-80 14:00:00 Test Item Value Reference Range Interpretation Comments Lymphocytes (test code = Lymphocytes) 30.7 20.0-40.0 [facility] CenterMvenhifBDNENGTQPF8288-83-35 14:00:00 Test Item Value Reference Range Interpretation Comments Eosinophils (test code = 1.7 See_Comment [A utomated message] The Eosinophils) system which ge nerated this result tra nsmitted reference range : <=4.0. The reference r nilam was not used to int erpret this result as normal/abnormal . [facility] CenterNinbvigUNIQRSMITF6573-71-24 14:00:00 Test Item Value Reference Range Interpretation Comments Monocytes (test code = Monocytes) 9.8 2.0-12.0 [facility] CenterYlwxgfiKGAJGJKCKM9748-60-53 14:00:00 Test Item Value Reference Range Interpretation Comments Plt Morph (test code = Normal (11/03/14 9:00 Plt Morph) AM) [facility] CenterBahmhquPFGMPLIADQ3494-86-09 14:00:00 Test Item Value Reference Range Interpretation Comments MPV (test code = MPV) 7.6 7.4-10.4 [facility] CenterDpefcteDSAALAPNQN0515-16-55 14:00:00 Test Item Value Reference Range Interpretation Comments Platelet (test code = Platelet) 259 133-450 [facility] CenterAnkjllcBKBZPQVKMW8104-09-35 14:00:00 Test Item Value Reference Range Interpretation Comments MCH (test code = MCH) 20.5 pg 27.0-31.0 [facility] CenterCirvehgTBIKDBUNQF2164-55-58 14:00:00 Test Item Value Reference Range Interpretation Comments MCHC (test code = MCHC) 30.3 32.0-36.0 [facility] CenterJoepsmvXBWQXELHWM8274-72-28 14:00:00 Test Item Value Reference Range Interpretation Comments RDW (test code = RDW) 17.4 11.5-14.5 [facility] CenterEomahhnKGYJSKESSC1895-61-23 14:00:00 Test Item Value Reference Range Interpretation Comments Hgb (test code = Hgb) 8.1 12.0-16.0 [facility] CenterLnaecguTYWPLUGSYI4191-21-93 14:00:00 Test Item Value Reference Range Interpretation Comments Hct (test code = Hct) 26.7 36.0-48.0 [facility] CenterYdnfyjsWOPWYKHCXZ9054-14-85 14:00:00 Test Item Value Reference Range Interpretation Comments MCV (test code = MCV) 67.6 80.0-98.0 [facility] CenterNjxtmgnJFYVAPELYZ7057-98-80 14:00:00 Test Item Value Reference Range Interpretation Comments RBC (test code = RBC) 3.95 4.20-5.40 [facility] CenterLxoyzqmJQHLCNFFCQ4411-07-83 14:00:00 Test Item Value Reference Range Interpretation Comments WBC (test code = WBC) 4.2 3.7-10.4 [facility] CenterBdhzdmaAKNKQDEOYV2678-12-42 14:00:00 Test Item Value Reference Range Interpretation Comments D-Dimer (test code = D-Dimer) 0.27 [facility] [employer]AC [id number] 14:00:00 Test Item Value Reference Range Interpretation Comments Troponin-I (test code no gt See_Comment [Auto mated message] The = Troponin-I) system which g enerated this result transmit kuldip reference range : <=0.40. The reference r nilam was not used to interpr et this result as abiodun l/abnormal. [facility] [employer]AC [id number] 14:00:00 Test Item Value Reference Range Interpretation Comments Total CK (test code = Total CK) 196 12-191 [facility] [employer] [id number] 14:00:00 Test Item Value Reference Range Interpretation Comments CK MB (test code = CK MB) 0.5 0.5-3.6 [facility] i[employer]annSiOn[employer]AC [id number] 14:00:00 Test Item Value Reference Range Interpretation Comments proBNP (test code = 18 See_Comment [Automa kuldip message] The proBNP) system which ge nerated this result tra nsmitted reference range : <=125. The reference r nilam was not used to int erpret this result as abiodun l/abnormal. [facility] [employer]AC [id number] 14:00:00 Test Item Value Reference Range Interpretation Comments CK MB Index (test 0.3 See_Comment [Automate d message] The code = CK MB Index) system w [facility] generated this result transmit kuldip reference range : <=2.5. The reference range was not used to interpr et this result as abiodun l/abnormal. [employer] [id number] 14:00:00 Test Item Value Reference Range Interpretation Comments eGFR (test code = eGFR) 111 [facility] [employer] [id number] 14:00:00 Test Item Value Reference Range Interpretation Comments Chloride Lvl (test code = Chloride Lvl) 103 95-109 [facility] [employer] [id number] 14:00:00 Test Item Value Reference Range Interpretation Comments BUN (test code = BUN) 6 7-22 [facility] [employer] [id number] 14:00:00 Test Item Value Reference Range Interpretation Comments Creatinine Lvl (test code = Creatinine 0.8 0.5-1.4 Lvl) [facility]2015-08-11 14:00:00 Test Item Value Reference Range Interpretation Comments Sodium Lvl (test code = Sodium Lvl) 138 135-145 [facility]2015-08-11 14:00:00 Test Item Value Reference Range Interpretation Comments Potassium Lvl (test code = Potassium 3.7 3.5-5.1 Lvl) [facility]2015-08-11 14:00:00 Test Item Value Reference Range Interpretation Comments Calcium Lvl (test code = Calcium Lvl) 9.5 8.5-10.5 [facility]2015-08-11 14:00:00 Test Item Value Reference Range Interpretation Comments Total Protein (test code = Total 8.2 6.4-8.4 Protein) [facility]2015-08-11 14:00:00 Test Item Value Reference Range Interpretation Comments CO2 (test code = CO2) 28 24-32 [facility]2015-08-11 14:00:00 Test Item Value Reference Range Interpretation Comments Bili Total (test code = Bili Total) 0.5 0.2-1.3 [facility]2015-08-11 14:00:00 Test Item Value Reference Range Interpretation Comments AGAP (test code = AGAP) 10.7 10.0-20.0 [facility]2015-08-11 14:00:00 Test Item Value Reference Range Interpretation Comments B/C Ratio (test code = B/C Ratio) 8 6-25 [facility]2015-08-11 14:00:00 Test Item Value Reference Range Interpretation Comments Globulin (test code = Globulin) 5.0 2.0-4.0 [facility]2015-08-11 14:00:00 Test Item Value Reference Range Interpretation Comments A/G Ratio (test code = A/G Ratio) 0.6 0.7-1.6 [facility]2015-08-11 14:00:00 Test Item Value Reference Range Interpretation Comments AST (test code = AST) 16 See_Comment [Auto mated message] The system which ge nerated this result transmit kuldip reference range : <=37. The reference range was not used to interpr et this result as abiodun l/abnormal. [facility]2015-08-11 14:00:00 Test Item Value Reference Range Interpretation Comments Glucose Lvl (test code = Glucose Lvl) 88 70-99 [facility]2015-08-11 14:00:00 Test Item Value Reference Range Interpretation Comments ALT (test code = ALT) 20 See_Comment [Auto mated message] The system which ge nerated this result transmit kuldip reference range : <=65. The reference range was not used to interpr et this result as abiodun l/abnormal. [facility]2015-08-11 14:00:00 Test Item Value Reference Range Interpretation Comments Albumin Lvl (test code = Albumin Lvl) 3.2 3.5-5.0 [facility]2015-08-11 14:00:00 Test Item Value Reference Range Interpretation Comments Alk Phos (test code = Alk Phos) 85 39-136 [facility] CenterZxloojhAOZZFOEXRS4425-55-89 14:00:00 Test Item Value Reference Range Interpretation Comments Basophils (test code = 0.8 See_Comment [Aut omated message] The Basophils) system which ge nerated this result tra nsmitted reference range : <=1.0. The reference r nilam was not used to int erpret this result as normal/abnormal . [facility] CenterFmnyytwTQJSKSLSDO8253-38-68 14:00:00 Test Item Value Reference Range Interpretation Comments Lymphocytes # (test code = Lymphocytes 1.3 1.0-5.5 #) [facility] CenterRuefipuHRJTSLQKIF0006-80-32 14:00:00 Test Item Value Reference Range Interpretation Comments Segs-Bands # (test code = Segs-Bands #) 2.4 1.5-8.1 [facility] CenterKkjxeowEQKSAHEXIO9253-89-95 14:00:00 Test Item Value Reference Range Interpretation Comments Monocytes # (test code 0.4 See_Comment [Aut omated message] The = Monocytes #) system which generated this result tra nsmitted reference range : <=0.8. The reference r nilam was not used to int erpret this result as normal/abnormal . [facility] CenterChybzkgGGFINQDSUP8334-62-31 14:00:00 Test Item Value Reference Range Interpretation Comments Microcyte (test code = 3+ *NA*(11/03/14 9:00 Microcyte) AM) [facility] CenterUisjzviPDLVRQAMUW2906-40-72 14:00:00 Test Item Value Reference Range Interpretation Comments Eosinophils # (test code 0.1 See_Comment [A utomated message] The = Eosinophils #) system whic h generated this result tra nsmitted reference range : <=0.5. The reference r nilam was not used to int erpret this result as normal/abnormal . [facility] CenterDzdrxtuIJMTCUVHYB9791-24-63 14:00:00 Test Item Value Reference Range Interpretation Comments Segs (test code = Segs) 57.0 45.0-75.0 [facility] CenterNmujdlxQHCCBHGQXJ1015-24-03 14:00:00 Test Item Value Reference Range Interpretation Comments Lymphocytes (test code = Lymphocytes) 30.7 20.0-40.0 [facility] CenterHgosareMVDDIXQSHP3466-88-22 14:00:00 Test Item Value Reference Range Interpretation Comments Eosinophils (test code = 1.7 See_Comment [A utomated message] The Eosinophils) system which ge nerated this result tra nsmitted reference range : <=4.0. The reference r nilam was not used to int erpret this result as normal/abnormal . [facility] CenterPdyuqsgJUVRHFEWKZ4026-68-36 14:00:00 Test Item Value Reference Range Interpretation Comments Monocytes (test code = Monocytes) 9.8 2.0-12.0 [facility] CenterZbrqktbOKBGHHPELO1807-75-56 14:00:00 Test Item Value Reference Range Interpretation Comments Plt Morph (test code = Normal (11/03/14 9:00 Plt Morph) AM) [facility] CenterHbkfednOYGVFXWVCS2209-36-89 14:00:00 Test Item Value Reference Range Interpretation Comments MPV (test code = MPV) 7.6 7.4-10.4 [facility] CenterYaviafqQMHUBJBCYC1777-33-37 14:00:00 Test Item Value Reference Range Interpretation Comments Platelet (test code = Platelet) 259 133-450 [facility] CenterOfrzbifBGBKPHPPAY6354-18-30 14:00:00 Test Item Value Reference Range Interpretation Comments MCH (test code = MCH) 20.5 pg 27.0-31.0 [facility] CenterEoupfyqWGAKRWLCHJ0789-68-38 14:00:00 Test Item Value Reference Range Interpretation Comments MCHC (test code = MCHC) 30.3 32.0-36.0 [facility] CenterUkiknjhRSHMSKGZWP4599-02-77 14:00:00 Test Item Value Reference Range Interpretation Comments RDW (test code = RDW) 17.4 11.5-14.5 [facility] HospitalJquagutCECZEMSXXU6745-46-33 14:00:00 Test Item Value Reference Range Interpretation Comments Hgb (test code = Hgb) 8.1 12.0-16.0 [facility] HospitalSlqjzyuKTPGYWMDWS4337-40-44 14:00:00 Test Item Value Reference Range Interpretation Comments Hct (test code = Hct) 26.7 36.0-48.0 [facility] HospitalQmauvauIIFJHMFCRE6610-95-55 14:00:00 Test Item Value Reference Range Interpretation Comments MCV (test code = MCV) 67.6 80.0-98.0 [facility] HospitalTdcnehnVAPOZKQMIF4948-80-34 14:00:00 Test Item Value Reference Range Interpretation Comments RBC (test code = RBC) 3.95 4.20-5.40 [facility] HospitalBcwcltbOUWYPYJGYR9211-85-44 14:00:00 Test Item Value Reference Range Interpretation Comments WBC (test code = WBC) 4.2 3.7-10.4 [facility] HospitalMwtgzsbHBNUHCKDBY1776-35-23 14:00:00 Test Item Value Reference Range Interpretation Comments D-Dimer (test code = D-Dimer) 0.27 [facility] CenterBreeze TechnologyCARFisgoAC [id number] 14:00:00 Test Item Value Reference Range Interpretation Comments Troponin-I (test code no gt See_Comment [Auto mated message] The = Troponin-I) system which g enerated this result transmit kuldip reference range : <=0.40. The reference r nilam was not used to interpr et this result as abiodun l/abnormal. [facility] CenterBreeze TechnologyCARFisgoAC [id number] 14:00:00 Test Item Value Reference Range Interpretation Comments Total CK (test code = Total CK) 196 12-191 [facility] HospitalGuarnicTableau Software [id number] 14:00:00 Test Item Value Reference Range Interpretation Comments CK MB (test code = CK MB) 0.5 0.5-3.6 [facility] HospitalGuarnicAC [id number] 14:00:00 Test Item Value Reference Range Interpretation Comments proBNP (test code = 18 See_Comment [Automa kuldip message] The proBNP) system which ge nerated this result tra nsmitted reference range : <=125. The reference r nilam was not used to int erpret this result as abiodun l/abnormal. [facility] HospitalCARDIAC [id number] 14:00:00 Test Item Value Reference Range Interpretation Comments CK MB Index (test 0.3 See_Comment [Automate d message] The code = CK MB Index) system w [facility] generated this result transmit kuldip reference range : <=2.5. The reference range was not used to interpr et this result as abiodun l/abnormal. [facility] CenterEasyProperty [id number] 14:00:00 Test Item Value Reference Range Interpretation Comments eGFR (test code = eGFR) 111 [facility]Easy[facility] [id number] 14:00:00 Test Item Value Reference Range Interpretation Comments Chloride Lvl (test code = Chloride Lvl) 103 95-109 [facility] [id number] 14:00:00 Test Item Value Reference Range Interpretation Comments BUN (test code = BUN) 6 7-22 [facility] HospitalOhmconnect [id number] 14:00:00 Test Item Value Reference Range Interpretation Comments Creatinine Lvl (test code = Creatinine 0.8 0.5-1.4 Lvl) [facility] [id number] 14:00:00 Test Item Value Reference Range Interpretation Comments Sodium Lvl (test code = Sodium Lvl) 138 135-145 [facility]Easy[facility] [id number] 14:00:00 Test Item Value Reference Range Interpretation Comments Potassium Lvl (test code = Potassium 3.7 3.5-5.1 Lvl) [facility] HospitalOhmconnect [id number] 14:00:00 Test Item Value Reference Range Interpretation Comments Calcium Lvl (test code = Calcium Lvl) 9.5 8.5-10.5 [facility]Easy[facility] [id number] 14:00:00 Test Item Value Reference Range Interpretation Comments Total Protein (test code = Total 8.2 6.4-8.4 Protein) [facility]Easy[facility] [id number] 14:00:00 Test Item Value Reference Range Interpretation Comments CO2 (test code = CO2) 28 24-32 [facility] HospitalOhm[facility] [id number] 14:00:00 Test Item Value Reference Range Interpretation Comments Bili Total (test code = Bili Total) 0.5 0.2-1.3 [facility]Easy[facility] [id number] 14:00:00 Test Item Value Reference Range Interpretation Comments AGAP (test code = AGAP) 10.7 10.0-20.0 [facility]2015-08-11 14:00:00 Test Item Value Reference Range Interpretation Comments B/C Ratio (test code = B/C Ratio) 8 6-25 [facility]2015-08-11 14:00:00 Test Item Value Reference Range Interpretation Comments Globulin (test code = Globulin) 5.0 2.0-4.0 [facility]2015-08-11 14:00:00 Test Item Value Reference Range Interpretation Comments A/G Ratio (test code = A/G Ratio) 0.6 0.7-1.6 [facility]2015-08-11 14:00:00 Test Item Value Reference Range Interpretation Comments AST (test code = AST) 16 See_Comment [Auto mated message] The system which ge nerated this result transmit kuldip reference range : <=37. The reference range was not used to interpr et this result as abiodun l/abnormal. [facility]2015-08-11 14:00:00 Test Item Value Reference Range Interpretation Comments Glucose Lvl (test code = Glucose Lvl) 88 70-99 [facility]2015-08-11 14:00:00 Test Item Value Reference Range Interpretation Comments ALT (test code = ALT) 20 See_Comment [Auto mated message] The system which ge nerated this result transmit kuldip reference range : <=65. The reference range was not used to interpr et this result as abiodun l/abnormal. [facility]2015-08-11 14:00:00 Test Item Value Reference Range Interpretation Comments Albumin Lvl (test code = Albumin Lvl) 3.2 3.5-5.0 [facility]2015-08-11 14:00:00 Test Item Value Reference Range Interpretation Comments Alk Phos (test code = Alk Phos) 85 39-136 [facility] CenterGynpymtUHQIZQJTFT9398-90-31 14:00:00 Test Item Value Reference Range Interpretation Comments Basophils (test code = 0.8 See_Comment [Aut omated message] The Basophils) system which ge nerated this result tra nsmitted reference range : <=1.0. The reference r nilam was not used to int erpret this result as normal/abnormal . [place] [id number] 14:00:00 Test Item Value Reference Range Interpretation Comments Lymphocytes # (test code = Lymphocytes 1.3 1.0-5.5 #) [facility] CenterNhyqptkLULRZGIMSM1686-87-52 14:00:00 Test Item Value Reference Range Interpretation Comments Segs-Bands # (test code = Segs-Bands #) 2.4 1.5-8.1 [facility] CenterPzsitteBHYYEKONZO0363-18-99 14:00:00 Test Item Value Reference Range Interpretation Comments Monocytes # (test code 0.4 See_Comment [Aut omated message] The = Monocytes #) system which generated this result tra nsmitted reference range : <=0.8. The reference r nilam was not used to int erpret this result as normal/abnormal . [facility] CenterPjtszdnBYPPIXSKRC8733-62-91 14:00:00 Test Item Value Reference Range Interpretation Comments Microcyte (test code = 3+ *NA*(11/03/14 9:00 Microcyte) AM) [facility] CenterMukfbqnXEBGCUAKHY8464-32-23 14:00:00 Test Item Value Reference Range Interpretation Comments Eosinophils # (test code 0.1 See_Comment [A utomated message] The = Eosinophils #) system whic h generated this result tra nsmitted reference range : <=0.5. The reference r nilam was not used to int erpret this result as normal/abnormal . [facility] CenterAahjzjiEILAKCPEVH2043-16-67 14:00:00 Test Item Value Reference Range Interpretation Comments Segs (test code = Segs) 57.0 45.0-75.0 [facility] CenterBimdaoaSSHGORYQWY8964-36-84 14:00:00 Test Item Value Reference Range Interpretation Comments Lymphocytes (test code = Lymphocytes) 30.7 20.0-40.0 [facility] CenterYfehknkABISQFQEHL9704-43-31 14:00:00 Test Item Value Reference Range Interpretation Comments Eosinophils (test code = 1.7 See_Comment [A utomated message] The Eosinophils) system which ge nerated this result tra nsmitted reference range : <=4.0. The reference r nilam was not used to int erpret this result as normal/abnormal . [facility] CenterCfzmynrUXHIQBQMIN3966-13-04 14:00:00 Test Item Value Reference Range Interpretation Comments Monocytes (test code = Monocytes) 9.8 2.0-12.0 [facility] CenterQogrogsLBUZJXLCEF9119-49-88 14:00:00 Test Item Value Reference Range Interpretation Comments Plt Morph (test code = Normal (11/03/14 9:00 Plt Morph) AM) [facility] CenterXjpuearONRSKCTZND1837-27-69 14:00:00 Test Item Value Reference Range Interpretation Comments MPV (test code = MPV) 7.6 7.4-10.4 [facility] CenterUaxdwhlAMURTYZOJG4650-49-15 14:00:00 Test Item Value Reference Range Interpretation Comments Platelet (test code = Platelet) 259 133-450 [facility] CenterIdtmathDSEMUBKDVF1992-18-38 14:00:00 Test Item Value Reference Range Interpretation Comments MCH (test code = MCH) 20.5 pg 27.0-31.0 [facility] CenterMurqsmlUNDSQNOMVF1055-07-96 14:00:00 Test Item Value Reference Range Interpretation Comments MCHC (test code = MCHC) 30.3 32.0-36.0 [facility] CenterHrptspyBWCHLLQSSI3670-20-76 14:00:00 Test Item Value Reference Range Interpretation Comments RDW (test code = RDW) 17.4 11.5-14.5 [facility] CenterZzqnsayXFBTFTJROV7404-44-98 14:00:00 Test Item Value Reference Range Interpretation Comments Hgb (test code = Hgb) 8.1 12.0-16.0 [facility] CenterMdvpncqHUUIIFDUNU2556-44-65 14:00:00 Test Item Value Reference Range Interpretation Comments Hct (test code = Hct) 26.7 36.0-48.0 [facility] CenterEnighyeBXTHYJEQMM7558-56-16 14:00:00 Test Item Value Reference Range Interpretation Comments MCV (test code = MCV) 67.6 80.0-98.0 [facility] CenterKpazihlKIEJDDDBYT0871-66-34 14:00:00 Test Item Value Reference Range Interpretation Comments RBC (test code = RBC) 3.95 4.20-5.40 [facility] CenterKhmqdzqQDEVJPZZBG3119-12-56 14:00:00 Test Item Value Reference Range Interpretation Comments WBC (test code = WBC) 4.2 3.7-10.4 [facility] CenterToirdxfHJBGZMLUBM6359-02-47 14:00:00 Test Item Value Reference Range Interpretation Comments D-Dimer (test code = D-Dimer) 0.27 [facility] XYAQREH2024-21-83 14:00:00 Test Item Value Reference Range Interpretation Comments Troponin-I (test code no gt See_Comment [Auto mated message] The = Troponin-I) system which g enerated this result transmit kuldip reference range : <=0.40. The reference r nilam was not used to interpr et this result as abiodun l/abnormal. [facility] Code42 WTBOOSP6658-92-73 14:00:00 Test Item Value Reference Range Interpretation Comments Total CK (test code = Total CK) 196 12-191 [facility] CenterAmagi Media Labs DPCIIWQ5386-19-23 14:00:00 Test Item Value Reference Range Interpretation Comments CK MB (test code = CK MB) 0.5 0.5-3.6 [facility] CenterEpoque2015-08-11 14:00:00 Test Item Value Reference Range Interpretation Comments proBNP (test code = 18 See_Comment [Automa kuldip message] The proBNP) system which ge nerated this result tra nsmitted reference range : <=125. The reference r nilam was not used to int erpret this result as abiodun l/abnormal. [facility] [employer]2015-08-11 14:00:00 Test Item Value Reference Range Interpretation Comments CK MB Index (test 0.3 See_Comment [Automate d message] The code = CK MB Index) system w [facility] generated this result transmit kuldip reference range : <=2.5. The reference range was not used to interpr et this result as abiodun l/abnormal. [facility] [employer]2015-08-11 14:00:00 Test Item Value Reference Range Interpretation Comments eGFR (test code = eGFR) 111 [facility] [employer]2015-08-11 14:00:00 Test Item Value Reference Range Interpretation Comments Chloride Lvl (test code = Chloride Lvl) 103 95-109 [facility] [employer]2015-08-11 14:00:00 Test Item Value Reference Range Interpretation Comments BUN (test code = BUN) 6 7-22 [facility] [employer]2015-08-11 14:00:00 Test Item Value Reference Range Interpretation Comments Creatinine Lvl (test code = Creatinine 0.8 0.5-1.4 Lvl) [facility] [employer]2015-08-11 14:00:00 Test Item Value Reference Range Interpretation Comments Sodium Lvl (test code = Sodium Lvl) 138 135-145 [facility]2015-08-11 14:00:00 Test Item Value Reference Range Interpretation Comments Potassium Lvl (test code = Potassium 3.7 3.5-5.1 Lvl) [facility]2015-08-11 14:00:00 Test Item Value Reference Range Interpretation Comments Calcium Lvl (test code = Calcium Lvl) 9.5 8.5-10.5 [facility]2015-08-11 14:00:00 Test Item Value Reference Range Interpretation Comments Total Protein (test code = Total 8.2 6.4-8.4 Protein) [facility]2015-08-11 14:00:00 Test Item Value Reference Range Interpretation Comments CO2 (test code = CO2) 28 24-32 [facility]2015-08-11 14:00:00 Test Item Value Reference Range Interpretation Comments Bili Total (test code = Bili Total) 0.5 0.2-1.3 [facility]2015-08-11 14:00:00 Test Item Value Reference Range Interpretation Comments AGAP (test code = AGAP) 10.7 10.0-20.0 [facility]2015-08-11 14:00:00 Test Item Value Reference Range Interpretation Comments B/C Ratio (test code = B/C Ratio) 8 6-25 [facility]2015-08-11 14:00:00 Test Item Value Reference Range Interpretation Comments Globulin (test code = Globulin) 5.0 2.0-4.0 [facility]2015-08-11 14:00:00 Test Item Value Reference Range Interpretation Comments A/G Ratio (test code = A/G Ratio) 0.6 0.7-1.6 [facility]2015-08-11 14:00:00 Test Item Value Reference Range Interpretation Comments AST (test code = AST) 16 See_Comment [Auto mated message] The system which ge nerated this result transmit kuldip reference range : <=37. The reference range was not used to interpr et this result as abiodun l/abnormal. [facility]2015-08-11 14:00:00 Test Item Value Reference Range Interpretation Comments Glucose Lvl (test code = Glucose Lvl) 88 70-99 [place] 583985-08-11 14:00:00 Test Item Value Reference Range Interpretation Comments ALT (test code = ALT) 20 See_Comment [Auto mated message] The system which ge nerated this result transmit kuldip reference range : <=65. The reference range was not used to interpr et this result as abiodun l/abnormal. [facility]2015-08-11 14:00:00 Test Item Value Reference Range Interpretation Comments Albumin Lvl (test code = Albumin Lvl) 3.2 3.5-5.0 [facility]2015-08-11 14:00:00 Test Item Value Reference Range Interpretation Comments Alk Phos (test code = Alk Phos) 85 39-136 [facility] CenterEsjhhozJATENODMRQ8612-78-33 14:00:00 Test Item Value Reference Range Interpretation Comments Basophils (test code = 0.8 See_Comment [Aut omated message] The Basophils) system which ge nerated this result tra nsmitted reference range : <=1.0. The reference r nilam was not used to int erpret this result as normal/abnormal . [facility] CenterQrwwiztHTDLIEODON8087-02-90 14:00:00 Test Item Value Reference Range Interpretation Comments Lymphocytes # (test code = Lymphocytes 1.3 1.0-5.5 #) [facility] CenterKzvxgprIEWPHRXVUP7756-44-68 14:00:00 Test Item Value Reference Range Interpretation Comments Segs-Bands # (test code = Segs-Bands #) 2.4 1.5-8.1 [facility] CenterIrpadubZOXFXPQSPZ3050-25-32 14:00:00 Test Item Value Reference Range Interpretation Comments Monocytes # (test code 0.4 See_Comment [Aut omated message] The = Monocytes #) system which generated this result tra nsmitted reference range : <=0.8. The reference r nilam was not used to int erpret this result as normal/abnormal . [facility] CenterZqahkzbTOOWVJDFJY2427-24-10 14:00:00 Test Item Value Reference Range Interpretation Comments Microcyte (test code = 3+ *NA*(11/03/14 9:00 Microcyte) AM) [facility] CenterRsvnaorEGORVHTRJX4635-23-11 14:00:00 Test Item Value Reference Range Interpretation Comments Eosinophils # (test code 0.1 See_Comment [A utomated message] The = Eosinophils #) system whic h generated this result tra nsmitted reference range : <=0.5. The reference r nilam was not used to int erpret this result as normal/abnormal . [facility] CenterLosbshvTWEIPYYLHF4328-26-12 14:00:00 Test Item Value Reference Range Interpretation Comments Segs (test code = Segs) 57.0 45.0-75.0 [facility] CenterWbfgilnPJGWPDGKUJ3886-06-30 14:00:00 Test Item Value Reference Range Interpretation Comments Lymphocytes (test code = Lymphocytes) 30.7 20.0-40.0 [facility] CenterCeixgowXWJHGJZADK0234-06-09 14:00:00 Test Item Value Reference Range Interpretation Comments Eosinophils (test code = 1.7 See_Comment [A utomated message] The Eosinophils) system which ge nerated this result tra nsmitted reference range : <=4.0. The reference r nilam was not used to int erpret this result as normal/abnormal . [facility] CenterMjvadgbMGLPAWCSLL3843-51-69 14:00:00 Test Item Value Reference Range Interpretation Comments Monocytes (test code = Monocytes) 9.8 2.0-12.0 [facility] CenterLdjubluGAPZGBUHDG4831-22-19 14:00:00 Test Item Value Reference Range Interpretation Comments Plt Morph (test code = Normal (11/03/14 9:00 Plt Morph) AM) [facility] CenterBkybosmCATJUAMJCJ5433-60-52 14:00:00 Test Item Value Reference Range Interpretation Comments MPV (test code = MPV) 7.6 7.4-10.4 [facility] CenterMnwdlksNFTFTDOEIU7477-90-61 14:00:00 Test Item Value Reference Range Interpretation Comments Platelet (test code = Platelet) 259 133-450 [facility] CenterOktwabuUPPSTIZCSY1241-97-59 14:00:00 Test Item Value Reference Range Interpretation Comments MCH (test code = MCH) 20.5 pg 27.0-31.0 [facility] CenterPtneiooURBKTFRSNY4499-58-56 14:00:00 Test Item Value Reference Range Interpretation Comments MCHC (test code = MCHC) 30.3 32.0-36.0 [facility] CenterFdrafksGDYLOMHTBV3241-70-37 14:00:00 Test Item Value Reference Range Interpretation Comments RDW (test code = RDW) 17.4 11.5-14.5 [facility] CenterYzxjbouHKMSJAYJAO7096-99-21 14:00:00 Test Item Value Reference Range Interpretation Comments Hgb (test code = Hgb) 8.1 12.0-16.0 [facility] HospitalLbxxycfLYULLEHZOW1868-92-99 14:00:00 Test Item Value Reference Range Interpretation Comments Hct (test code = Hct) 26.7 36.0-48.0 [facility] HospitalApqzxsaANKECVKEZQ5416-66-08 14:00:00 Test Item Value Reference Range Interpretation Comments MCV (test code = MCV) 67.6 80.0-98.0 [facility] HospitalRcrxkmkXYOJQIDSNN6174-71-18 14:00:00 Test Item Value Reference Range Interpretation Comments RBC (test code = RBC) 3.95 4.20-5.40 [facility] HospitalYrfrsniBNWBWRBXNS1191-29-27 14:00:00 Test Item Value Reference Range Interpretation Comments WBC (test code = WBC) 4.2 3.7-10.4 [facility] HospitalDqbzlkdMGDNMSPPFA1965-77-66 14:00:00 Test Item Value Reference Range Interpretation Comments D-Dimer (test code = D-Dimer) 0.27 [facility] CenterBreeze TechnologyCARDIAC ARWHJGO2522-27-34 14:00:00 Test Item Value Reference Range Interpretation Comments Troponin-I (test code no gt See_Comment [Auto mated message] The = Troponin-I) system which g enerated this result transmit kuldip reference range : <=0.40. The reference r nilam was not used to interpr et this result as abiodun l/abnormal. [facility] CenterBreeze TechnologyCARDIAC ZGQMCXB1207-51-94 14:00:00 Test Item Value Reference Range Interpretation Comments Total CK (test code = Total CK) 196 12-191 [facility] HospitalCARD[facility]AC ZQOGHXC7665-92-78 14:00:00 Test Item Value Reference Range Interpretation Comments CK MB (test code = CK MB) 0.5 0.5-3.6 [facility] HospitalCARDIAC KJPIUOX4761-16-08 14:00:00 Test Item Value Reference Range Interpretation Comments proBNP (test code = 18 See_Comment [Automa kuldip message] The proBNP) system which ge nerated this result tra nsmitted reference range : <=125. The reference r nilam was not used to int erpret this result as abiodun l/abnormal. [facility] CenterBreeze TechnologyCARDIAC YLUVOAP7907-80-71 14:00:00 Test Item Value Reference Range Interpretation Comments CK MB Index (test 0.3 See_Comment [Automate d message] The code = CK MB Index) system w [facility] generated this result transmit kuldip reference range : <=2.5. The reference range was not used to interpr et this result as abiodun l/abnormal. [facility]2015-08-11 14:00:00 Test Item Value Reference Range Interpretation Comments eGFR (test code = eGFR) 111 [facility]2015-08-11 14:00:00 Test Item Value Reference Range Interpretation Comments Chloride Lvl (test code = Chloride Lvl) 103 95-109 [facility]2015-08-11 14:00:00 Test Item Value Reference Range Interpretation Comments BUN (test code = BUN) 6 7-22 [facility]2015-08-11 14:00:00 Test Item Value Reference Range Interpretation Comments Creatinine Lvl (test code = Creatinine 0.8 0.5-1.4 Lvl) [facility]2015-08-11 14:00:00 Test Item Value Reference Range Interpretation Comments Sodium Lvl (test code = Sodium Lvl) 138 135-145 [facility]2015-08-11 14:00:00 Test Item Value Reference Range Interpretation Comments Potassium Lvl (test code = Potassium 3.7 3.5-5.1 Lvl) [facility]2015-08-11 14:00:00 Test Item Value Reference Range Interpretation Comments Calcium Lvl (test code = Calcium Lvl) 9.5 8.5-10.5 [facility]2015-08-11 14:00:00 Test Item Value Reference Range Interpretation Comments Total Protein (test code = Total 8.2 6.4-8.4 Protein) [facility]2015-08-11 14:00:00 Test Item Value Reference Range Interpretation Comments CO2 (test code = CO2) 28 24-32 [facility]2015-08-11 14:00:00 Test Item Value Reference Range Interpretation Comments Bili Total (test code = Bili Total) 0.5 0.2-1.3 [facility]2015-08-11 14:00:00 Test Item Value Reference Range Interpretation Comments AGAP (test code = AGAP) 10.7 10.0-20.0 [place] 583985-08-11 14:00:00 Test Item Value Reference Range Interpretation Comments B/C Ratio (test code = B/C Ratio) 8 6-25 [facility]2015-08-11 14:00:00 Test Item Value Reference Range Interpretation Comments Globulin (test code = Globulin) 5.0 2.0-4.0 [facility]2015-08-11 14:00:00 Test Item Value Reference Range Interpretation Comments A/G Ratio (test code = A/G Ratio) 0.6 0.7-1.6 [place] 583985-08-11 14:00:00 Test Item Value Reference Range Interpretation Comments AST (test code = AST) 16 See_Comment [Auto mated message] The system which ge nerated this result transmit kuldip reference range : <=37. The reference range was not used to interpr et this result as abiodun l/abnormal. [facility]2015-08-11 14:00:00 Test Item Value Reference Range Interpretation Comments Glucose Lvl (test code = Glucose Lvl) 88 70-99 [facility]2015-08-11 14:00:00 Test Item Value Reference Range Interpretation Comments ALT (test code = ALT) 20 See_Comment [Auto mated message] The system which ge nerated this result transmit kuldip reference range : <=65. The reference range was not used to interpr et this result as abiodun l/abnormal. [facility]2015-08-11 14:00:00 Test Item Value Reference Range Interpretation Comments Albumin Lvl (test code = Albumin Lvl) 3.2 3.5-5.0 [facility]2015-08-11 14:00:00 Test Item Value Reference Range Interpretation Comments Alk Phos (test code = Alk Phos) 85 39-136 [facility] CenterVvrltysDFECXPJDUU5977-81-68 14:00:00 Test Item Value Reference Range Interpretation Comments Basophils (test code = 0.8 See_Comment [Aut omated message] The Basophils) system which ge nerated this result tra nsmitted reference range : <=1.0. The reference r nilam was not used to int erpret this result as normal/abnormal . [facility] CenterVxmmgfxTONAYEJCNA3231-81-89 14:00:00 Test Item Value Reference Range Interpretation Comments Lymphocytes # (test code = Lymphocytes 1.3 1.0-5.5 #) [facility] CenterGwuejoeXFBKXKPCSE9439-95-86 14:00:00 Test Item Value Reference Range Interpretation Comments Segs-Bands # (test code = Segs-Bands #) 2.4 1.5-8.1 [facility] CenterEdpbqakWFCSANFLNG2555-62-19 14:00:00 Test Item Value Reference Range Interpretation Comments Monocytes # (test code 0.4 See_Comment [Aut omated message] The = Monocytes #) system which generated this result tra nsmitted reference range : <=0.8. The reference r nilam was not used to int erpret this result as normal/abnormal . [facility] CenterRozmeytZECMGSVEZW6851-73-41 14:00:00 Test Item Value Reference Range Interpretation Comments Microcyte (test code = 3+ *NA*(11/03/14 9:00 Microcyte) AM) [facility] CenterNamqwckBGBQSHCLRF9209-11-84 14:00:00 Test Item Value Reference Range Interpretation Comments Eosinophils # (test code 0.1 See_Comment [A utomated message] The = Eosinophils #) system whic h generated this result tra nsmitted reference range : <=0.5. The reference r nilam was not used to int erpret this result as normal/abnormal . [facility] CenterCfrgdfhSVOKXLZURL6225-91-55 14:00:00 Test Item Value Reference Range Interpretation Comments Segs (test code = Segs) 57.0 45.0-75.0 [facility] CenterCwafzzeAIVXFJMZXC1225-72-06 14:00:00 Test Item Value Reference Range Interpretation Comments Lymphocytes (test code = Lymphocytes) 30.7 20.0-40.0 [facility] CenterZpwcqeoRDVUGUXONE0232-43-22 14:00:00 Test Item Value Reference Range Interpretation Comments Eosinophils (test code = 1.7 See_Comment [A utomated message] The Eosinophils) system which ge nerated this result tra nsmitted reference range : <=4.0. The reference r nilam was not used to int erpret this result as normal/abnormal . [facility] CenterIcpoxsyNCOWCBSPML0525-81-30 14:00:00 Test Item Value Reference Range Interpretation Comments Monocytes (test code = Monocytes) 9.8 2.0-12.0 [facility] CenterTzmkhyyCXHQVIGJYF1708-96-39 14:00:00 Test Item Value Reference Range Interpretation Comments Plt Morph (test code = Normal (11/03/14 9:00 Plt Morph) AM) [facility] HospitalUyzxgvyOLKMCHWFXD3357-21-11 14:00:00 Test Item Value Reference Range Interpretation Comments MPV (test code = MPV) 7.6 7.4-10.4 [facility] HospitalUfzzwcwFIOESAWIJA8567-59-30 14:00:00 Test Item Value Reference Range Interpretation Comments Platelet (test code = Platelet) 259 133-450 [facility] HospitalNcmpjwdFKNCGICIZY0860-96-59 14:00:00 Test Item Value Reference Range Interpretation Comments MCH (test code = MCH) 20.5 pg 27.0-31.0 [facility] HospitalHxbmhhoWDTFHALXVY9542-57-48 14:00:00 Test Item Value Reference Range Interpretation Comments MCHC (test code = MCHC) 30.3 32.0-36.0 [facility] HospitalYpaevjfMUYQIAHVCM3607-22-74 14:00:00 Test Item Value Reference Range Interpretation Comments RDW (test code = RDW) 17.4 11.5-14.5 [facility] HospitalAosqjdkXOGIRCTOJR9451-21-20 14:00:00 Test Item Value Reference Range Interpretation Comments Hgb (test code = Hgb) 8.1 12.0-16.0 [facility] HospitalRkdimetGVTXIOTWXA8670-47-51 14:00:00 Test Item Value Reference Range Interpretation Comments Hct (test code = Hct) 26.7 36.0-48.0 [facility] HospitalDlsdueaDEYVXDACAZ9445-86-48 14:00:00 Test Item Value Reference Range Interpretation Comments MCV (test code = MCV) 67.6 80.0-98.0 [facility] HospitalDjymayfKZLBXPKZBO3255-80-29 14:00:00 Test Item Value Reference Range Interpretation Comments RBC (test code = RBC) 3.95 4.20-5.40 [facility] HospitalYwjxvgfPVUTQCKWKE0048-84-06 14:00:00 Test Item Value Reference Range Interpretation Comments WBC (test code = WBC) 4.2 3.7-10.4 [facility] HospitalBdbqfrdRGCCZZUQAR0256-20-30 14:00:00 Test Item Value Reference Range Interpretation Comments D-Dimer (test code = D-Dimer) 0.27 [facility] HospitalCARDIAC [id number] 14:00:00 Test Item Value Reference Range Interpretation Comments Troponin-I (test code no gt See_Comment [Auto mated message] The = Troponin-I) system which g enerated this result transmit kuldip reference range : <=0.40. The reference r nilam was not used to interpr et this result as abiodun l/abnormal. [facility] CenterAmagi Media Labs SQCWRJT1142-01-91 14:00:00 Test Item Value Reference Range Interpretation Comments Total CK (test code = Total CK) 196 12-191 [facility] CenterSafeTacMag EUAFNYL2954-20-91 14:00:00 Test Item Value Reference Range Interpretation Comments CK MB (test code = CK MB) 0.5 0.5-3.6 [facility] CenterAm[facility] Labs ILZVMZE6041-79-89 14:00:00 Test Item Value Reference Range Interpretation Comments proBNP (test code = 18 See_Comment [Automa kuldip message] The proBNP) system which ge nerated this result tra nsmitted reference range : <=125. The reference r nilam was not used to int erpret this result as abiodun l/abnormal. [facility] CenterAm[facility] Labs OLWAAEO8271-49-79 14:00:00 Test Item Value Reference Range Interpretation Comments CK MB Index (test 0.3 See_Comment [Automate d message] The code = CK MB Index) system w [facility] generated this result transmit kuldip reference range : <=2.5. The reference range was not used to interpr et this result as abiodun l/abnormal. [facility] [employer] [id number] 14:00:00 Test Item Value Reference Range Interpretation Comments eGFR (test code = eGFR) 111 [facility] [employer]2015-08-11 14:00:00 Test Item Value Reference Range Interpretation Comments Chloride Lvl (test code = Chloride Lvl) 103 95-109 [facility] [employer] [id number] 14:00:00 Test Item Value Reference Range Interpretation Comments BUN (test code = BUN) 6 7-22 [facility] [employer] [id number] 14:00:00 Test Item Value Reference Range Interpretation Comments Creatinine Lvl (test code = Creatinine 0.8 0.5-1.4 Lvl) [facility] [employer] [id number] 14:00:00 Test Item Value Reference Range Interpretation Comments Sodium Lvl (test code = Sodium Lvl) 138 135-145 [facility] [employer] [id number] 14:00:00 Test Item Value Reference Range Interpretation Comments Potassium Lvl (test code = Potassium 3.7 3.5-5.1 Lvl) [facility]2015-08-11 14:00:00 Test Item Value Reference Range Interpretation Comments Calcium Lvl (test code = Calcium Lvl) 9.5 8.5-10.5 [facility]2015-08-11 14:00:00 Test Item Value Reference Range Interpretation Comments Total Protein (test code = Total 8.2 6.4-8.4 Protein) [facility]2015-08-11 14:00:00 Test Item Value Reference Range Interpretation Comments CO2 (test code = CO2) 28 24-32 [facility]2015-08-11 14:00:00 Test Item Value Reference Range Interpretation Comments Bili Total (test code = Bili Total) 0.5 0.2-1.3 [facility]2015-08-11 14:00:00 Test Item Value Reference Range Interpretation Comments AGAP (test code = AGAP) 10.7 10.0-20.0 [facility]2015-08-11 14:00:00 Test Item Value Reference Range Interpretation Comments B/C Ratio (test code = B/C Ratio) 8 6-25 [facility]2015-08-11 14:00:00 Test Item Value Reference Range Interpretation Comments Globulin (test code = Globulin) 5.0 2.0-4.0 [facility]2015-08-11 14:00:00 Test Item Value Reference Range Interpretation Comments A/G Ratio (test code = A/G Ratio) 0.6 0.7-1.6 [facility]2015-08-11 14:00:00 Test Item Value Reference Range Interpretation Comments AST (test code = AST) 16 See_Comment [Auto mated message] The system which ge nerated this result transmit kuldip reference range : <=37. The reference range was not used to interpr et this result as abiodun l/abnormal. [facility]2015-08-11 14:00:00 Test Item Value Reference Range Interpretation Comments Glucose Lvl (test code = Glucose Lvl) 88 70-99 [facility]2015-08-11 14:00:00 Test Item Value Reference Range Interpretation Comments ALT (test code = ALT) 20 See_Comment [Auto mated message] The system which ge nerated this result transmit kuldip reference range : <=65. The reference range was not used to interpr et this result as abiodun l/abnormal. [facility]2015-08-11 14:00:00 Test Item Value Reference Range Interpretation Comments Albumin Lvl (test code = Albumin Lvl) 3.2 3.5-5.0 [facility]2015-08-11 14:00:00 Test Item Value Reference Range Interpretation Comments Alk Phos (test code = Alk Phos) 85 39-136 [facility]NpztmsyFGSKZDZLEV3909-99-10 14:00:00 Test Item Value Reference Range Interpretation Comments Basophils (test code = 0.8 See_Comment [Aut omated message] The Basophils) system which ge nerated this result tra nsmitted reference range : <=1.0. The reference r nilam was not used to int erpret this result as normal/abnormal . [facility] CenterZmddfncWNVFSPTJMK8994-75-60 14:00:00 Test Item Value Reference Range Interpretation Comments Lymphocytes # (test code = Lymphocytes 1.3 1.0-5.5 #) [facility] CenterTlgggfzFQGETZIZUW5667-32-35 14:00:00 Test Item Value Reference Range Interpretation Comments Segs-Bands # (test code = Segs-Bands #) 2.4 1.5-8.1 [facility] CenterKhiektcRSXJIQYWLH5075-40-91 14:00:00 Test Item Value Reference Range Interpretation Comments Monocytes # (test code 0.4 See_Comment [Aut omated message] The = Monocytes #) system which generated this result tra nsmitted reference range : <=0.8. The reference r nilam was not used to int erpret this result as normal/abnormal . [facility] CenterHtpswecPZCAEHWEKJ3084-42-50 14:00:00 Test Item Value Reference Range Interpretation Comments Microcyte (test code = 3+ *NA*(11/03/14 9:00 Microcyte) AM) [facility] CenterNfnjfbyQMSDDFDYIG9793-38-72 14:00:00 Test Item Value Reference Range Interpretation Comments Eosinophils # (test code 0.1 See_Comment [A utomated message] The = Eosinophils #) system whic h generated this result tra nsmitted reference range : <=0.5. The reference r nilam was not used to int erpret this result as normal/abnormal . [facility] CenterBkiexknTIQVSIVHVE3087-04-42 14:00:00 Test Item Value Reference Range Interpretation Comments Segs (test code = Segs) 57.0 45.0-75.0 [facility] CenterDglgdpfUSNXPYYPEC4858-59-32 14:00:00 Test Item Value Reference Range Interpretation Comments Lymphocytes (test code = Lymphocytes) 30.7 20.0-40.0 [facility] CenterCojuuwiLUZXIQUDPB2169-61-86 14:00:00 Test Item Value Reference Range Interpretation Comments Eosinophils (test code = 1.7 See_Comment [A utomated message] The Eosinophils) system which ge nerated this result tra nsmitted reference range : <=4.0. The reference r nilam was not used to int erpret this result as normal/abnormal . [facility] CenterMbegdpqSZZJGWWBNM6538-17-54 14:00:00 Test Item Value Reference Range Interpretation Comments Monocytes (test code = Monocytes) 9.8 2.0-12.0 [facility] CenterKohhgrqUVDAKRLFLV3556-35-95 14:00:00 Test Item Value Reference Range Interpretation Comments Plt Morph (test code = Normal (11/03/14 9:00 Plt Morph) AM) [facility] CenterLvcfwljZQATWERKJX7385-00-89 14:00:00 Test Item Value Reference Range Interpretation Comments MPV (test code = MPV) 7.6 7.4-10.4 [facility] CenterJypgjofOVLUUWIMKO8069-52-15 14:00:00 Test Item Value Reference Range Interpretation Comments Platelet (test code = Platelet) 259 133-450 [facility] CenterXtyxvneVWCHHAIXLY7231-74-65 14:00:00 Test Item Value Reference Range Interpretation Comments MCH (test code = MCH) 20.5 pg 27.0-31.0 [facility] CenterClkvemiIMIJAYNITG9600-40-24 14:00:00 Test Item Value Reference Range Interpretation Comments MCHC (test code = MCHC) 30.3 32.0-36.0 [facility] CenterNeonwsuQSNDZZQUVI9556-08-74 14:00:00 Test Item Value Reference Range Interpretation Comments RDW (test code = RDW) 17.4 11.5-14.5 [facility] CenterQxgonunYNXIYBVXYY3092-71-54 14:00:00 Test Item Value Reference Range Interpretation Comments Hgb (test code = Hgb) 8.1 12.0-16.0 [facility] CenterFochudpWBHWGZTUIA8244-71-41 14:00:00 Test Item Value Reference Range Interpretation Comments Hct (test code = Hct) 26.7 36.0-48.0 [facility] CenterDwszyjoGDWWUIHKGO6759-77-44 14:00:00 Test Item Value Reference Range Interpretation Comments MCV (test code = MCV) 67.6 80.0-98.0 [facility] CenterGcemtxzBBVBWCHGAQ8424-63-82 14:00:00 Test Item Value Reference Range Interpretation Comments RBC (test code = RBC) 3.95 4.20-5.40 [facility] CenterMgchveaJOXVURTQQB7684-44-81 14:00:00 Test Item Value Reference Range Interpretation Comments WBC (test code = WBC) 4.2 3.7-10.4 [facility] CenterYiggtspFYELLKBQBM8172-73-71 14:00:00 Test Item Value Reference Range Interpretation Comments D-Dimer (test code = D-Dimer) 0.27 [facility]CtfvpdjKRTNOYBUW6840-79-99 21:55:00 Test Item Value Reference Range Interpretation Comments U Preg (test code = U Negative (03/07/2013 N Preg) 15:55:00) [facility]XqbpsmvTAEZDIACRP4768-52-81 21:55:00 Test Item Value Reference Range Interpretation Comments UA Bili (test code = Negative *NA*(03/07/2013 UA Bili) 15:55:00) [facility] CenterHqzzfzpSWHBNXLRTA2174-13-47 21:55:00 Test Item Value Reference Range Interpretation Comments UA Blood (test code = Negative (03/07/2013 N UA Blood) 15:55:00) [facility] CenterCkmahuqXTTNJPMSWN9947-40-17 21:55:00 Test Item Value Reference Range Interpretation Comments UA Ketones (test code Negative = UA Ketones) *NA*(03/07/2013 15:55:00) [facility] CenterJoxefynFTMXKPTTDY7948-97-03 21:55:00 Test Item Value Reference Range Interpretation Comments UA Protein (test code = Trace A UA Protein) *ABN*(03/07/2013 15:55:00) [facility] CenterDandkyfUMFLUJDWXF9489-86-58 21:55:00 Test Item Value Reference Range Interpretation Comments UA Glucose (test code Negative (03/07/2013 N = UA Glucose) 15:55:00) [facility] CenterZhbbghaJVRDVUTEPG4442-50-83 21:55:00 Test Item Value Reference Range Interpretation Comments UA pH (test code = UA pH) 7.5 1 5.0-8.0 N [facility] CenterHknxtmqZUTHTDDPHO5612-82-42 21:55:00 Test Item Value Reference Range Interpretation Comments UA Nitrite (test code Negative (03/07/2013 N = UA Nitrite) 15:55:00) [facility] CenterXryxhrrTGAVWDOXZP0273-69-89 21:55:00 Test Item Value Reference Range Interpretation Comments UA Urobilinogen (test code = UA 1.0 0.1-1.0 N Urobilinogen) [facility] CenterHfxjpmkXTQJXWYUXL0088-99-91 21:55:00 Test Item Value Reference Range Interpretation Comments UA Leuk Est (test Negative (03/07/2013 N code = UA Leuk Est) 15:55:00) [facility] HospitalRkfcetuYDDEYPQQCG1111-33-76 21:55:00 Test Item Value Reference Range Interpretation Comments UA Spec Grav (test code = UA Spec 1.015 1 N Grav) [facility] CenterGpwcxmbJQTCPGVUAB0872-16-54 21:55:00 Test Item Value Reference Range Interpretation Comments UA Color (test code = Yellow *NA*(03/07/2013 UA Color) 15:55:00) [facility] CenterNxhygpuDGMECSQAOF5664-56-37 21:55:00 Test Item Value Reference Range Interpretation Comments UA Turbidity (test code = Clear (03/07/2013 N UA Turbidity) 15:55:00) [facility] CampusUpamhwxFAEGFPSUAX9365-93-45 21:55:00 Test Item Value Reference Range Interpretation Comments UA Sq Epi (test code = UA Sq Epi) Few /LPF N [facility] CenterXaakoqkAOXBLABUYV4144-91-73 21:55:00 Test Item Value Reference Range Interpretation Comments Micro? (test code = Performed (03/07/2013 N Micro?) 15:55:00) [facility] CenterVwdhdchYQUCCLUKHL2738-82-17 21:55:00 Test Item Value Reference Range Interpretation Comments UA Bacteria (test code = UA Occasional /HPF N Bacteria) [facility] HospitalPjqamtzLOBCLQHJS0627-05-44 21:55:00 Test Item Value Reference Range Interpretation Comments U Preg (test code = U Negative (03/07/2013 N Preg) 15:55:00) [facility] CenterMpyddfiCHVZORGCUR6007-08-67 21:55:00 Test Item Value Reference Range Interpretation Comments UA Bili (test code = Negative *NA*(03/07/2013 UA Bili) 15:55:00) [facility] CenterBijmesiZDQENECOCK6091-71-57 21:55:00 Test Item Value Reference Range Interpretation Comments UA Blood (test code = Negative (03/07/2013 N UA Blood) 15:55:00) [facility] CenterMyrpvocRPJDQTLTMX5893-62-02 21:55:00 Test Item Value Reference Range Interpretation Comments UA Ketones (test code Negative = UA Ketones) *NA*(03/07/2013 15:55:00) [facility] CenterHrxuqzuDEMUCVYFOU3956-91-40 21:55:00 Test Item Value Reference Range Interpretation Comments UA Protein (test code = Trace A UA Protein) *ABN*(03/07/2013 15:55:00) [facility] CenterRvyynmiWBLOYLTFGC4119-15-12 21:55:00 Test Item Value Reference Range Interpretation Comments UA Glucose (test code Negative (03/07/2013 N = UA Glucose) 15:55:00) [facility] CenterQoajxvqOUUBJSGTNT3682-72-46 21:55:00 Test Item Value Reference Range Interpretation Comments UA pH (test code = UA pH) 7.5 1 5.0-8.0 N [facility] CenterRzcaojrPWQUIPITLF6048-78-84 21:55:00 Test Item Value Reference Range Interpretation Comments UA Nitrite (test code Negative (03/07/2013 N = UA Nitrite) 15:55:00) [facility] CenterIswdgdqPBHMIIROOU3626-02-83 21:55:00 Test Item Value Reference Range Interpretation Comments UA Urobilinogen (test code = UA 1.0 0.1-1.0 N Urobilinogen) [facility] CenterLolnljtUBFVGNTWGH4943-09-96 21:55:00 Test Item Value Reference Range Interpretation Comments UA Leuk Est (test Negative (03/07/2013 N code = UA Leuk Est) 15:55:00) [facility] CenterOqsdxlkBPMZTGODPS5504-12-24 21:55:00 Test Item Value Reference Range Interpretation Comments UA Spec Grav (test code = UA Spec 1.015 1 N Grav) [facility] CenterFcyfyhnVHKVYYLTAZ2083-43-25 21:55:00 Test Item Value Reference Range Interpretation Comments UA Color (test code = Yellow *NA*(03/07/2013 UA Color) 15:55:00) [facility] CampusHwwacebRTTUHFBUSA4963-49-24 21:55:00 Test Item Value Reference Range Interpretation Comments UA Turbidity (test code = Clear (03/07/2013 N UA Turbidity) 15:55:00) [facility] CampusNjnxbedLSEOCWFOYC5557-59-07 21:55:00 Test Item Value Reference Range Interpretation Comments UA Sq Epi (test code = UA Sq Epi) Few /LPF N [facility] CampusJagqvfpLJNEPAMWUK2396-25-67 21:55:00 Test Item Value Reference Range Interpretation Comments Micro? (test code = Performed (03/07/2013 N Micro?) 15:55:00) [facility] CampusNcrixlnGRRTYKLQCJ2915-99-85 21:55:00 Test Item Value Reference Range Interpretation Comments UA Bacteria (test code = UA Occasional /HPF N Bacteria) [facility] HospitalLlglarrPYKHCZRVX1493-56-23 21:55:00 Test Item Value Reference Range Interpretation Comments U Preg (test code = U Negative (03/07/2013 N Preg) 15:55:00) [facility] CampusChumgbwOESXWGNCJJ7578-54-55 21:55:00 Test Item Value Reference Range Interpretation Comments UA Bili (test code = Negative *NA*(03/07/2013 UA Bili) 15:55:00) [facility] CampusVcuyqiuDBKLXVBLFY2465-90-62 21:55:00 Test Item Value Reference Range Interpretation Comments UA Blood (test code = Negative (03/07/2013 N UA Blood) 15:55:00) [facility] CampusOkyhwrxNUNHDZJQHY8994-51-07 21:55:00 Test Item Value Reference Range Interpretation Comments UA Ketones (test code Negative = UA Ketones) *NA*(03/07/2013 15:55:00) [facility] CampusJhmiqpiDBYUXFFHKW9350-32-12 21:55:00 Test Item Value Reference Range Interpretation Comments UA Protein (test code = Trace A UA Protein) *ABN*(03/07/2013 15:55:00) [facility] CampusTfbeuewUIFWBHCUNL1371-38-76 21:55:00 Test Item Value Reference Range Interpretation Comments UA Glucose (test code Negative (03/07/2013 N = UA Glucose) 15:55:00) [facility] CampusAmgsijlQJWPEJHCOT9500-34-44 21:55:00 Test Item Value Reference Range Interpretation Comments UA pH (test code = UA pH) 7.5 1 5.0-8.0 N [facility] CenterQngskybBSWFRBSDQV7024-80-61 21:55:00 Test Item Value Reference Range Interpretation Comments UA Nitrite (test code Negative (03/07/2013 N = UA Nitrite) 15:55:00) [facility] HospitalSbejsxaKSCPMTUUIH2313-20-39 21:55:00 Test Item Value Reference Range Interpretation Comments UA Urobilinogen (test code = UA 1.0 0.1-1.0 N Urobilinogen) [facility] HospitalUasrufzVMETFTGMLG1403-82-12 21:55:00 Test Item Value Reference Range Interpretation Comments UA Leuk Est (test Negative (03/07/2013 N code = UA Leuk Est) 15:55:00) [facility] HospitalDkcxmxvPJIISJGYKV5099-94-82 21:55:00 Test Item Value Reference Range Interpretation Comments UA Spec Grav (test code = UA Spec 1.015 1 N Grav) [facility] CampusUwaqvxnMYXVYZNVCH9415-96-94 21:55:00 Test Item Value Reference Range Interpretation Comments UA Color (test code = Yellow *NA*(03/07/2013 UA Color) 15:55:00) [facility] HospitalNbpmzdvJXDBBMDOZT2711-75-78 21:55:00 Test Item Value Reference Range Interpretation Comments UA Turbidity (test code = Clear (03/07/2013 N UA Turbidity) 15:55:00) [facility] CampusXwuketnCQWHZRBKTA0621-92-59 21:55:00 Test Item Value Reference Range Interpretation Comments UA Sq Epi (test code = UA Sq Epi) Few /LPF N [facility] HospitalCxummtsPMQZSKMTTY1737-02-27 21:55:00 Test Item Value Reference Range Interpretation Comments Micro? (test code = Performed (03/07/2013 N Micro?) 15:55:00) [facility] HospitalYroqkgcIYAAAJTBAA0026-43-38 21:55:00 Test Item Value Reference Range Interpretation Comments UA Bacteria (test code = UA Occasional /HPF N Bacteria) [facility] HospitalEdcpwwvUFGLPJTQR5429-88-86 21:55:00 Test Item Value Reference Range Interpretation Comments U Preg (test code = U Negative (03/07/2013 N Preg) 15:55:00) [facility] HospitalSbvezupVIQQEVZGJL2098-49-42 21:55:00 Test Item Value Reference Range Interpretation Comments UA Bili (test code = Negative *NA*(03/07/2013 UA Bili) 15:55:00) [facility] CenterHhgxgybNBPLZQXRSU0303-11-07 21:55:00 Test Item Value Reference Range Interpretation Comments UA Blood (test code = Negative (03/07/2013 N UA Blood) 15:55:00) [facility] CenterNsjxeqxFHPUALZJQI2217-46-58 21:55:00 Test Item Value Reference Range Interpretation Comments UA Ketones (test code Negative = UA Ketones) *NA*(03/07/2013 15:55:00) [facility] CenterJggnoqdDPJHUZJETP4660-57-50 21:55:00 Test Item Value Reference Range Interpretation Comments UA Protein (test code = Trace A UA Protein) *ABN*(03/07/2013 15:55:00) [facility] CenterGxjazjxGAZCHFYFTH9154-89-26 21:55:00 Test Item Value Reference Range Interpretation Comments UA Glucose (test code Negative (03/07/2013 N = UA Glucose) 15:55:00) [facility] CenterYxazhosPODFMMNXDH6646-66-64 21:55:00 Test Item Value Reference Range Interpretation Comments UA pH (test code = UA pH) 7.5 1 5.0-8.0 N [facility] CenterSlsaimkHRRULBPXSP8012-50-26 21:55:00 Test Item Value Reference Range Interpretation Comments UA Nitrite (test code Negative (03/07/2013 N = UA Nitrite) 15:55:00) [facility] CenterLcgavyuBAKOCMTYXP5193-84-94 21:55:00 Test Item Value Reference Range Interpretation Comments UA Urobilinogen (test code = UA 1.0 0.1-1.0 N Urobilinogen) [facility] CenterYxqhptuRIUJBMVBSJ6167-55-56 21:55:00 Test Item Value Reference Range Interpretation Comments UA Leuk Est (test Negative (03/07/2013 N code = UA Leuk Est) 15:55:00) [facility] CenterFffwjrbGTTTHDNXIJ0271-31-48 21:55:00 Test Item Value Reference Range Interpretation Comments UA Spec Grav (test code = UA Spec 1.015 1 N Grav) [facility] CenterLueosmuKVXVUNZZDN7340-32-90 21:55:00 Test Item Value Reference Range Interpretation Comments UA Color (test code = Yellow *NA*(03/07/2013 UA Color) 15:55:00) [facility] HospitalKovailiMAWEWRJVQH4858-56-22 21:55:00 Test Item Value Reference Range Interpretation Comments UA Turbidity (test code = Clear (03/07/2013 N UA Turbidity) 15:55:00) [facility] CampusAkidobaKTMISBBQTZ5088-14-52 21:55:00 Test Item Value Reference Range Interpretation Comments UA Sq Epi (test code = UA Sq Epi) Few /LPF N [facility] CampusTkxzyjiXDRAXDVYEU0080-29-71 21:55:00 Test Item Value Reference Range Interpretation Comments Micro? (test code = Performed (03/07/2013 N Micro?) 15:55:00) [facility] CampusVfmkakcOMWURFYUIR1989-89-50 21:55:00 Test Item Value Reference Range Interpretation Comments UA Bacteria (test code = UA Occasional /HPF N Bacteria) [facility] HospitalXczotqrFSVHXVKTX1432-74-30 21:55:00 Test Item Value Reference Range Interpretation Comments U Preg (test code = U Negative (03/07/2013 N Preg) 15:55:00) [facility] CampusVtlzxvhEGIYTMFIXJ7945-73-89 21:55:00 Test Item Value Reference Range Interpretation Comments UA Bili (test code = Negative *NA*(03/07/2013 UA Bili) 15:55:00) [facility] HospitalMoaontxYXAIIXHMRE9128-20-99 21:55:00 Test Item Value Reference Range Interpretation Comments UA Blood (test code = Negative (03/07/2013 N UA Blood) 15:55:00) [facility] CampusPcxchlyBXLPMIWPTH7011-60-38 21:55:00 Test Item Value Reference Range Interpretation Comments UA Ketones (test code Negative = UA Ketones) *NA*(03/07/2013 15:55:00) [facility] CampusMurnzudHMLPOABLLF1229-53-43 21:55:00 Test Item Value Reference Range Interpretation Comments UA Protein (test code = Trace A UA Protein) *ABN*(03/07/2013 15:55:00) [facility] CampusRyegbfnMNZZCSYOOJ3312-58-21 21:55:00 Test Item Value Reference Range Interpretation Comments UA Glucose (test code Negative (03/07/2013 N = UA Glucose) 15:55:00) [facility] CampusLcqrvzeQWGIBJZDST7359-26-37 21:55:00 Test Item Value Reference Range Interpretation Comments UA pH (test code = UA pH) 7.5 1 5.0-8.0 N [facility] CenterAkjopvpOFXGWSJVCR3282-21-17 21:55:00 Test Item Value Reference Range Interpretation Comments UA Nitrite (test code Negative (03/07/2013 N = UA Nitrite) 15:55:00) [facility] CenterCmpkszbMYJAGTVUHB9429-44-56 21:55:00 Test Item Value Reference Range Interpretation Comments UA Urobilinogen (test code = UA 1.0 0.1-1.0 N Urobilinogen) [facility] CenterYepxroqXOTJULVGHZ8530-11-24 21:55:00 Test Item Value Reference Range Interpretation Comments UA Leuk Est (test Negative (03/07/2013 N code = UA Leuk Est) 15:55:00) [facility] CenterErkylgkTLDXYWUUIO1715-03-00 21:55:00 Test Item Value Reference Range Interpretation Comments UA Spec Grav (test code = UA Spec 1.015 1 N Grav) [facility] CampusQhuuhxkJRVVSRARHZ2172-30-40 21:55:00 Test Item Value Reference Range Interpretation Comments UA Color (test code = Yellow *NA*(03/07/2013 UA Color) 15:55:00) [facility] CenterHtpnflhQENLRQXUVM6958-31-87 21:55:00 Test Item Value Reference Range Interpretation Comments UA Turbidity (test code = Clear (03/07/2013 N UA Turbidity) 15:55:00) [facility] CampusOyerbocFGXPIAPTTL3731-51-69 21:55:00 Test Item Value Reference Range Interpretation Comments UA Sq Epi (test code = UA Sq Epi) Few /LPF N [facility] CenterYatfdfsMWCEYJGUYW5454-19-66 21:55:00 Test Item Value Reference Range Interpretation Comments Micro? (test code = Performed (03/07/2013 N Micro?) 15:55:00) [facility] CenterXbjuidcYXTTFUIAUM6584-98-00 21:55:00 Test Item Value Reference Range Interpretation Comments UA Bacteria (test code = UA Occasional /HPF N Bacteria) [facility] HospitalNsuzdxzUXKHJWRPP6971-11-94 21:55:00 Test Item Value Reference Range Interpretation Comments U Preg (test code = U Negative (03/07/2013 N Preg) 15:55:00) [facility] CenterYupkapzMYPJTNJDTN4107-22-69 21:55:00 Test Item Value Reference Range Interpretation Comments UA Bili (test code = Negative *NA*(03/07/2013 UA Bili) 15:55:00) [facility] CenterZyznoiuCDXSTDFPOE9274-23-78 21:55:00 Test Item Value Reference Range Interpretation Comments UA Blood (test code = Negative (03/07/2013 N UA Blood) 15:55:00) [facility] CenterOmrnukuTAKZODOBBB7552-18-08 21:55:00 Test Item Value Reference Range Interpretation Comments UA Ketones (test code Negative = UA Ketones) *NA*(03/07/2013 15:55:00) [facility] CenterExrhxnwFZIDBZDZMS5408-83-82 21:55:00 Test Item Value Reference Range Interpretation Comments UA Protein (test code = Trace A UA Protein) *ABN*(03/07/2013 15:55:00) [facility] CenterBbvrnvzVMBQTWPDKN4242-27-32 21:55:00 Test Item Value Reference Range Interpretation Comments UA Glucose (test code Negative (03/07/2013 N = UA Glucose) 15:55:00) [facility] CenterXayyitaKLEPEEGAII0348-61-27 21:55:00 Test Item Value Reference Range Interpretation Comments UA pH (test code = UA pH) 7.5 1 5.0-8.0 N [facility] CenterFityvnuHDOOIQKEWW7458-57-11 21:55:00 Test Item Value Reference Range Interpretation Comments UA Nitrite (test code Negative (03/07/2013 N = UA Nitrite) 15:55:00) [facility]LfxssxcQOULLWHKMB3086-08-37 21:55:00 Test Item Value Reference Range Interpretation Comments UA Urobilinogen (test code = UA 1.0 0.1-1.0 N Urobilinogen) [facility] CenterBobbobiBHGBEJXOOW9559-40-23 21:55:00 Test Item Value Reference Range Interpretation Comments UA Leuk Est (test Negative (03/07/2013 N code = UA Leuk Est) 15:55:00) [facility] CenterFrobfjeZFRXHZZFDE2241-50-55 21:55:00 Test Item Value Reference Range Interpretation Comments UA Spec Grav (test code = UA Spec 1.015 1 N Grav) [facility] CenterGwouaerHPWRVZSTZQ5004-28-54 21:55:00 Test Item Value Reference Range Interpretation Comments UA Color (test code = Yellow *NA*(03/07/2013 UA Color) 15:55:00) [facility] CenterJkxouwiVHAHGCTCKA6119-22-94 21:55:00 Test Item Value Reference Range Interpretation Comments UA Turbidity (test code = Clear (03/07/2013 N UA Turbidity) 15:55:00) [facility]SqpbvqsIVJFKHUWQI4921-44-16 21:55:00 Test Item Value Reference Range Interpretation Comments UA Sq Epi (test code = UA Sq Epi) Few /LPF N [facility]ShywfroMFTLWCBSAF3667-53-27 21:55:00 Test Item Value Reference Range Interpretation Comments Micro? (test code = Performed (03/07/2013 N Micro?) 15:55:00) [facility] CampusMfxlyrzYHVIXREKLA4035-53-01 21:55:00 Test Item Value Reference Range Interpretation Comments UA Bacteria (test code = UA Occasional /HPF N Bacteria) [facility] HospitalTfxykbeJHWEKXHDQ8319-39-36 21:55:00 Test Item Value Reference Range Interpretation Comments U Preg (test code = U Negative (03/07/2013 N Preg) 15:55:00) [facility] CampusLrclozeEPRZRKBJTR6916-51-40 21:55:00 Test Item Value Reference Range Interpretation Comments UA Bili (test code = Negative *NA*(03/07/2013 UA Bili) 15:55:00) [facility] HospitalKfcxhvfVEVHINTNDC9978-33-67 21:55:00 Test Item Value Reference Range Interpretation Comments UA Blood (test code = Negative (03/07/2013 N UA Blood) 15:55:00) [facility] CampusSqsnwjpOHOLMFVZHC3080-23-34 21:55:00 Test Item Value Reference Range Interpretation Comments UA Ketones (test code Negative = UA Ketones) *NA*(03/07/2013 15:55:00) [facility] HospitalWyzvdvrKCBGCVYBEP3995-74-02 21:55:00 Test Item Value Reference Range Interpretation Comments UA Protein (test code = Trace A UA Protein) *ABN*(03/07/2013 15:55:00) [facility] CampusJzsofybPKFTNZZQZT4313-17-27 21:55:00 Test Item Value Reference Range Interpretation Comments UA Glucose (test code Negative (03/07/2013 N = UA Glucose) 15:55:00) [facility] CampusVvgabjuHYVOIJHLMW3567-80-16 21:55:00 Test Item Value Reference Range Interpretation Comments UA pH (test code = UA pH) 7.5 1 5.0-8.0 N [facility] CampusPyhfzoiNHFUDAVXLK9553-80-01 21:55:00 Test Item Value Reference Range Interpretation Comments UA Nitrite (test code Negative (03/07/2013 N = UA Nitrite) 15:55:00) [facility] CenterDlielywJPTJPHZYNW9066-40-11 21:55:00 Test Item Value Reference Range Interpretation Comments UA Urobilinogen (test code = UA 1.0 0.1-1.0 N Urobilinogen) [facility] CenterFqnwqrhHWIOQUIXUO6006-23-86 21:55:00 Test Item Value Reference Range Interpretation Comments UA Leuk Est (test Negative (03/07/2013 N code = UA Leuk Est) 15:55:00) [facility] CampusBfrbfqxIUWUVPSUVV1258-61-78 21:55:00 Test Item Value Reference Range Interpretation Comments UA Spec Grav (test code = UA Spec 1.015 1 N Grav) [facility] CenterGuxcrjlZDXUTHYEOK3745-35-59 21:55:00 Test Item Value Reference Range Interpretation Comments UA Color (test code = Yellow *NA*(03/07/2013 UA Color) 15:55:00) [facility] CenterSjswtoqDKNAGHRXXB5938-24-89 21:55:00 Test Item Value Reference Range Interpretation Comments UA Turbidity (test code = Clear (03/07/2013 N UA Turbidity) 15:55:00) [facility] CenterZaqkexuLOSMPKNUWZ4535-96-59 21:55:00 Test Item Value Reference Range Interpretation Comments UA Sq Epi (test code = UA Sq Epi) Few /LPF N [facility] CenterBxojcfbSCNGAJRSAP6667-97-09 21:55:00 Test Item Value Reference Range Interpretation Comments Micro? (test code = Performed (03/07/2013 N Micro?) 15:55:00) [facility] CenterFqrscxmEQDWNIJPKP7103-18-69 21:55:00 Test Item Value Reference Range Interpretation Comments UA Bacteria (test code = UA Occasional /HPF N Bacteria) [facility] HospitalXjiocsjEWOKMJWXN6724-88-45 15:45:45 Test Item Value Reference Range Interpretation Comments CK-MB INDEX (test 0.2 See_Comment N [Automate d message] The code = CK-MB INDEX) system w [facility] generated this result transmit kuldip reference range : <=2.5. The reference range was not used to interpr et this result as abiodun l/abnormal. [facility] HospitalYwanjjpHAYRIZUNV3135-59-13 15:45:45 Test Item Value Reference Range Interpretation Comments Lactic Acid Lvl (test code = Lactic 1.9 0.5-2.2 N Acid Lvl) [facility] HospitalPbexslgBYVLXZYOI5428-65-43 15:45:45 Test Item Value Reference Range Interpretation Comments CK MB (test code = CK MB) 1.1 0.5-3.6 N [facility] HospitalIlntywfDTFKDCYMN3414-93-30 15:45:45 Test Item Value Reference Range Interpretation Comments Troponin-I (test code no gt See_Comment N [Auto mated message] The = Troponin-I) system which g enerated this result transmit kuldip reference range : <=0.40. The reference r nilam was not used to interpr et this result as abiodun l/abnormal. [facility] HospitalKpegxnrVQOPPPFFU1096-76-53 15:45:45 Test Item Value Reference Range Interpretation Comments eGFR (test code = eGFR) 82 [facility] HospitalPtfcsjjWLZUSDNMK9640-49-65 15:45:45 Test Item Value Reference Range Interpretation Comments BUN (test code = BUN) 7 7-22 N [facility] HospitalImlmiciAQJQXZWAP2073-95-65 15:45:45 Test Item Value Reference Range Interpretation Comments Potassium Lvl (test code = Potassium 3.9 3.5-5.1 N Lvl) [facility] HospitalEqozujsFCRYORSPY9821-78-06 15:45:45 Test Item Value Reference Range Interpretation Comments Calcium Lvl (test code = Calcium Lvl) 9.6 8.5-10.5 N [facility] HospitalOyaaaifZJTMILUSA2026-72-76 15:45:45 Test Item Value Reference Range Interpretation Comments AGAP (test code = AGAP) 12.9 10.0-20.0 N [facility] HospitalEmkjkvyCGGHDTFHB6538-68-88 15:45:45 Test Item Value Reference Range Interpretation Comments Glucose Lvl (test code = Glucose Lvl) 131 70-99 H [facility] HospitalIlreijrYVXBSYSKD5182-21-70 15:45:45 Test Item Value Reference Range Interpretation Comments Chloride Lvl (test code = Chloride Lvl) 102 95-109 N [facility] HospitalZziezfjUQAJBUWMN1465-59-06 15:45:45 Test Item Value Reference Range Interpretation Comments CO2 (test code = CO2) 24 24-32 N [facility] HospitalDtonjwpHRQRIONCX2628-18-75 15:45:45 Test Item Value Reference Range Interpretation Comments Creatinine Lvl (test code = Creatinine 0.9 0.5-1.4 N Lvl) [facility] HospitalWgpkxfwSXBRGIAAO6947-13-52 15:45:45 Test Item Value Reference Range Interpretation Comments Sodium Lvl (test code = Sodium Lvl) 135 135-145 N [facility] HospitalNiyjemfDNUHSQFOP0340-12-41 15:45:45 Test Item Value Reference Range Interpretation Comments Total CK (test code = Total CK) 469 12-191 H [facility] HospitalRteptfcZNFPSLSGM3128-54-51 15:45:45 Test Item Value Reference Range Interpretation Comments CK-MB INDEX (test 0.2 See_Comment N [Automate d message] The code = CK-MB INDEX) system w [facility] generated this result transmit kuldip reference range : <=2.5. The reference range was not used to interpr et this result as abiodun l/abnormal. [facility] HospitalUzrvvmiEQLKOQDGD6254-45-85 15:45:45 Test Item Value Reference Range Interpretation Comments Lactic Acid Lvl (test code = Lactic 1.9 0.5-2.2 N Acid Lvl) [facility] HospitalHohmbacPUXJQYNVJ6540-67-61 15:45:45 Test Item Value Reference Range Interpretation Comments CK MB (test code = CK MB) 1.1 0.5-3.6 N [facility] HospitalGaudvejFPRBXOQJZ6346-20-09 15:45:45 Test Item Value Reference Range Interpretation Comments Troponin-I (test code no gt See_Comment N [Auto mated message] The = Troponin-I) system which g enerated this result transmit kuldip reference range : <=0.40. The reference r nilam was not used to interpr et this result as abiodun l/abnormal. [facility] HospitalIbwyrluATAJTWBFN6715-02-19 15:45:45 Test Item Value Reference Range Interpretation Comments eGFR (test code = eGFR) 82 [facility] HospitalRufcroqPSLGXFRNC5991-13-50 15:45:45 Test Item Value Reference Range Interpretation Comments BUN (test code = BUN) 7 7-22 N [facility] HospitalMzrsgwgUTDUTWZKI6781-38-84 15:45:45 Test Item Value Reference Range Interpretation Comments Potassium Lvl (test code = Potassium 3.9 3.5-5.1 N Lvl) [facility] HospitalTrpzwqePTGEQVNJF3221-63-03 15:45:45 Test Item Value Reference Range Interpretation Comments Calcium Lvl (test code = Calcium Lvl) 9.6 8.5-10.5 N [facility] HospitalVkkkjcpZWZDEKGMF2292-30-89 15:45:45 Test Item Value Reference Range Interpretation Comments AGAP (test code = AGAP) 12.9 10.0-20.0 N [facility] HospitalPkxairmGBYGXJPFO2954-43-07 15:45:45 Test Item Value Reference Range Interpretation Comments Glucose Lvl (test code = Glucose Lvl) 131 70-99 H [facility] HospitalTwsvwiaPKPOUGKWY5132-37-70 15:45:45 Test Item Value Reference Range Interpretation Comments Chloride Lvl (test code = Chloride Lvl) 102 95-109 N [facility] HospitalUiqvuyaZWOKAMWYQ8407-25-25 15:45:45 Test Item Value Reference Range Interpretation Comments CO2 (test code = CO2) 24 24-32 N [facility] HospitalOvswlfsTOWNINSFA1911-60-41 15:45:45 Test Item Value Reference Range Interpretation Comments Creatinine Lvl (test code = Creatinine 0.9 0.5-1.4 N Lvl) [facility] HospitalUustqczBWWDINHUM0315-14-34 15:45:45 Test Item Value Reference Range Interpretation Comments Sodium Lvl (test code = Sodium Lvl) 135 135-145 N [facility] HospitalInjcrpmJTQWLCCZG9413-63-63 15:45:45 Test Item Value Reference Range Interpretation Comments Total CK (test code = Total CK) 469 12-191 H [facility] HospitalHjsncbxCMTKNXCNE4621-42-02 15:45:45 Test Item Value Reference Range Interpretation Comments CK-MB INDEX (test 0.2 See_Comment N [Automate d message] The code = CK-MB INDEX) system w [facility] generated this result transmit kuldip reference range : <=2.5. The reference range was not used to interpr et this result as abiodun l/abnormal. [facility] HospitalNiihimrRKANRFKJZ1527-82-78 15:45:45 Test Item Value Reference Range Interpretation Comments Lactic Acid Lvl (test code = Lactic 1.9 0.5-2.2 N Acid Lvl) [facility] HospitalXqxpchyWJOFXJLVF6866-21-46 15:45:45 Test Item Value Reference Range Interpretation Comments CK MB (test code = CK MB) 1.1 0.5-3.6 N [facility] HospitalWvbxruyLORHQQWAJ2873-58-74 15:45:45 Test Item Value Reference Range Interpretation Comments Troponin-I (test code no gt See_Comment N [Auto mated message] The = Troponin-I) system which g enerated this result transmit kuldip reference range : <=0.40. The reference r nilam was not used to interpr et this result as abiodun l/abnormal. [facility] HospitalMbpvtqwXRTCMIZQH7343-78-41 15:45:45 Test Item Value Reference Range Interpretation Comments eGFR (test code = eGFR) 82 [facility] HospitalPjeqjrgYYAPTYPKB2462-08-67 15:45:45 Test Item Value Reference Range Interpretation Comments BUN (test code = BUN) 7 7-22 N [facility] HospitalXzujvdsPZCHYSFGD6729-23-83 15:45:45 Test Item Value Reference Range Interpretation Comments Potassium Lvl (test code = Potassium 3.9 3.5-5.1 N Lvl) [facility] HospitalDnmgycnWRXCGNTIX0495-35-56 15:45:45 Test Item Value Reference Range Interpretation Comments Calcium Lvl (test code = Calcium Lvl) 9.6 8.5-10.5 N [facility] HospitalSsvdbwcPRWQIUPNY3598-34-88 15:45:45 Test Item Value Reference Range Interpretation Comments AGAP (test code = AGAP) 12.9 10.0-20.0 N [facility] HospitalIjlgvufCLASBWINF5140-68-08 15:45:45 Test Item Value Reference Range Interpretation Comments Glucose Lvl (test code = Glucose Lvl) 131 70-99 H [facility] HospitalYtchtvtNJOIJZEIJ5517-51-77 15:45:45 Test Item Value Reference Range Interpretation Comments Chloride Lvl (test code = Chloride Lvl) 102 95-109 N [facility] HospitalUqkmvbsUAWZMPTFC3717-40-45 15:45:45 Test Item Value Reference Range Interpretation Comments CO2 (test code = CO2) 24 24-32 N [facility] HospitalBfvxyvcKBUNSPQGS8003-30-83 15:45:45 Test Item Value Reference Range Interpretation Comments Creatinine Lvl (test code = Creatinine 0.9 0.5-1.4 N Lvl) [facility] HospitalWonbayiXQWXWQQXK0856-90-94 15:45:45 Test Item Value Reference Range Interpretation Comments Sodium Lvl (test code = Sodium Lvl) 135 135-145 N [facility] HospitalUogcjcnQSPWESZSS8533-46-20 15:45:45 Test Item Value Reference Range Interpretation Comments Total CK (test code = Total CK) 469 12-191 H [facility] HospitalZsblrmzKSAORFNWD9964-36-37 15:45:45 Test Item Value Reference Range Interpretation Comments CK-MB INDEX (test 0.2 See_Comment N [Automate d message] The code = CK-MB INDEX) system w [facility] generated this result transmit kuldip reference range : <=2.5. The reference range was not used to interpr et this result as abiodun l/abnormal. [facility] HospitalTpjzgnvFAXQATZIZ2232-75-79 15:45:45 Test Item Value Reference Range Interpretation Comments Lactic Acid Lvl (test code = Lactic 1.9 0.5-2.2 N Acid Lvl) [facility] HospitalVhjerdtEZPDMMZOB7105-70-03 15:45:45 Test Item Value Reference Range Interpretation Comments CK MB (test code = CK MB) 1.1 0.5-3.6 N [facility] HospitalVqmmgulBPPBEZKKZ0117-82-17 15:45:45 Test Item Value Reference Range Interpretation Comments Troponin-I (test code no gt See_Comment N [Auto mated message] The = Troponin-I) system which g enerated this result transmit kuldip reference range : <=0.40. The reference r nilam was not used to interpr et this result as abiodun l/abnormal. [facility] HospitalGgcupuhMUJPWACCO4284-46-97 15:45:45 Test Item Value Reference Range Interpretation Comments eGFR (test code = eGFR) 82 [facility] HospitalMkjmkutTGJYAYOHS1780-52-39 15:45:45 Test Item Value Reference Range Interpretation Comments BUN (test code = BUN) 7 7-22 N [facility] HospitalLlybnhiUUMINZHHN3215-31-97 15:45:45 Test Item Value Reference Range Interpretation Comments Potassium Lvl (test code = Potassium 3.9 3.5-5.1 N Lvl) [facility] HospitalCnctfqiTBOUULHBL7082-30-52 15:45:45 Test Item Value Reference Range Interpretation Comments Calcium Lvl (test code = Calcium Lvl) 9.6 8.5-10.5 N [facility] HospitalSxnifvzEKJIEKHBG4499-09-53 15:45:45 Test Item Value Reference Range Interpretation Comments AGAP (test code = AGAP) 12.9 10.0-20.0 N [facility] HospitalOqqfyyqUXXFFVQRC6475-65-99 15:45:45 Test Item Value Reference Range Interpretation Comments Glucose Lvl (test code = Glucose Lvl) 131 70-99 H [facility] HospitalZvqrffaQIFKGOKEI1305-85-86 15:45:45 Test Item Value Reference Range Interpretation Comments Chloride Lvl (test code = Chloride Lvl) 102 95-109 N [facility] HospitalVcurabbLAADYZGRS2821-30-84 15:45:45 Test Item Value Reference Range Interpretation Comments CO2 (test code = CO2) 24 24-32 N [facility] HospitalJcemqfkUEFJCOMAD7249-49-54 15:45:45 Test Item Value Reference Range Interpretation Comments Creatinine Lvl (test code = Creatinine 0.9 0.5-1.4 N Lvl) [facility] HospitalBykpscvOTBPWNWKE1476-25-85 15:45:45 Test Item Value Reference Range Interpretation Comments Sodium Lvl (test code = Sodium Lvl) 135 135-145 N [facility] HospitalPykfenkFQKRGCXBO8010-38-35 15:45:45 Test Item Value Reference Range Interpretation Comments Total CK (test code = Total CK) 469 12-191 H [facility] HospitalWcanmsbGEOQRKVEB7690-58-41 15:45:45 Test Item Value Reference Range Interpretation Comments CK-MB INDEX (test 0.2 See_Comment N [Automate d message] The code = CK-MB INDEX) system w [facility] generated this result transmit kuldip reference range : <=2.5. The reference range was not used to interpr et this result as abiodun l/abnormal. [facility] HospitalSweekoiRKCFSUSHA4373-80-85 15:45:45 Test Item Value Reference Range Interpretation Comments Lactic Acid Lvl (test code = Lactic 1.9 0.5-2.2 N Acid Lvl) [facility] HospitalNmekkqyZUHUKTFCI2099-89-90 15:45:45 Test Item Value Reference Range Interpretation Comments CK MB (test code = CK MB) 1.1 0.5-3.6 N [facility] HospitalQkmqkmuTIFZVOFMA5948-80-67 15:45:45 Test Item Value Reference Range Interpretation Comments Troponin-I (test code no gt See_Comment N [Auto mated message] The = Troponin-I) system which g enerated this result transmit kuldip reference range : <=0.40. The reference r nilam was not used to interpr et this result as abiodun l/abnormal. [facility] HospitalVdyvovdIUFLFXFRX2016-12-90 15:45:45 Test Item Value Reference Range Interpretation Comments eGFR (test code = eGFR) 82 [facility] HospitalBmnrrtjUTGCOHAXG1964-37-18 15:45:45 Test Item Value Reference Range Interpretation Comments BUN (test code = BUN) 7 7-22 N [facility] HospitalQludvirAAXHTLVVO9263-84-58 15:45:45 Test Item Value Reference Range Interpretation Comments Potassium Lvl (test code = Potassium 3.9 3.5-5.1 N Lvl) [facility] HospitalZgeulmjBJHVBAJVO1080-01-82 15:45:45 Test Item Value Reference Range Interpretation Comments Calcium Lvl (test code = Calcium Lvl) 9.6 8.5-10.5 N [facility] HospitalMxtpnpeVBAUXAEGQ5737-21-57 15:45:45 Test Item Value Reference Range Interpretation Comments AGAP (test code = AGAP) 12.9 10.0-20.0 N [facility] HospitalKgabgjaMYFILSZFI8772-96-46 15:45:45 Test Item Value Reference Range Interpretation Comments Glucose Lvl (test code = Glucose Lvl) 131 70-99 H [facility] HospitalAireencPHSLREBAH4207-67-29 15:45:45 Test Item Value Reference Range Interpretation Comments Chloride Lvl (test code = Chloride Lvl) 102 95-109 N [facility] HospitalJjeeqsoTONGFNXXG4914-73-64 15:45:45 Test Item Value Reference Range Interpretation Comments CO2 (test code = CO2) 24 24-32 N [facility] HospitalMbwwzvqDXMSAIZCZ3104-27-73 15:45:45 Test Item Value Reference Range Interpretation Comments Creatinine Lvl (test code = Creatinine 0.9 0.5-1.4 N Lvl) [facility] HospitalDqrmlcpESVQUGTOZ0809-89-76 15:45:45 Test Item Value Reference Range Interpretation Comments Sodium Lvl (test code = Sodium Lvl) 135 135-145 N [facility] HospitalYsbhyolQZSWYYQUH5449-71-34 15:45:45 Test Item Value Reference Range Interpretation Comments Total CK (test code = Total CK) 469 12-191 H [facility] HospitalRuatrhpMBHUKVHUW3127-25-22 15:45:45 Test Item Value Reference Range Interpretation Comments CK-MB INDEX (test 0.2 See_Comment N [Automate d message] The code = CK-MB INDEX) system w [facility] generated this result transmit kuldip reference range : <=2.5. The reference range was not used to interpr et this result as abiodun l/abnormal. [facility] HospitalGalnqrhIQACRQEYH9259-27-49 15:45:45 Test Item Value Reference Range Interpretation Comments Lactic Acid Lvl (test code = Lactic 1.9 0.5-2.2 N Acid Lvl) [facility] HospitalMcefdrdUMETMINBD2141-97-62 15:45:45 Test Item Value Reference Range Interpretation Comments CK MB (test code = CK MB) 1.1 0.5-3.6 N [facility] HospitalClzhqylCAECNCMQC9201-05-72 15:45:45 Test Item Value Reference Range Interpretation Comments Troponin-I (test code no gt See_Comment N [Auto mated message] The = Troponin-I) system which g enerated this result transmit kuldip reference range : <=0.40. The reference r nilam was not used to interpr et this result as abiodun l/abnormal. [facility] HospitalVwwdudqTPBRBANDW3883-00-03 15:45:45 Test Item Value Reference Range Interpretation Comments eGFR (test code = eGFR) 82 [facility] HospitalYjrabcoUIUHCZJZD2078-45-19 15:45:45 Test Item Value Reference Range Interpretation Comments BUN (test code = BUN) 7 7-22 N [facility] HospitalEdaepaaRPTKXKFNA3658-03-80 15:45:45 Test Item Value Reference Range Interpretation Comments Potassium Lvl (test code = Potassium 3.9 3.5-5.1 N Lvl) [facility] HospitalFvjlbujNICIVRKNR1842-71-43 15:45:45 Test Item Value Reference Range Interpretation Comments Calcium Lvl (test code = Calcium Lvl) 9.6 8.5-10.5 N [facility] HospitalSdnytqoKRBEJCNPC8513-47-56 15:45:45 Test Item Value Reference Range Interpretation Comments AGAP (test code = AGAP) 12.9 10.0-20.0 N [facility] HospitalBuyevvaHYFGPNZJQ4574-40-44 15:45:45 Test Item Value Reference Range Interpretation Comments Glucose Lvl (test code = Glucose Lvl) 131 70-99 H [facility] HospitalCgeiznmQEPJCIQWH9741-45-30 15:45:45 Test Item Value Reference Range Interpretation Comments Chloride Lvl (test code = Chloride Lvl) 102 95-109 N [facility] HospitalThsuavcZXYLBIHKP3300-49-92 15:45:45 Test Item Value Reference Range Interpretation Comments CO2 (test code = CO2) 24 24-32 N [facility] HospitalHwmiujhLVCDMRLUH0067-10-50 15:45:45 Test Item Value Reference Range Interpretation Comments Creatinine Lvl (test code = Creatinine 0.9 0.5-1.4 N Lvl) [facility] HospitalDultklhOSLQHEMOZ5740-16-84 15:45:45 Test Item Value Reference Range Interpretation Comments Sodium Lvl (test code = Sodium Lvl) 135 135-145 N [facility] HospitalPvwkfiiAWSIBWCYA2477-32-09 15:45:45 Test Item Value Reference Range Interpretation Comments Total CK (test code = Total CK) 469 12-191 H [facility] HospitalMpvlmrzNCRKFVWUB5710-57-63 15:45:45 Test Item Value Reference Range Interpretation Comments CK-MB INDEX (test 0.2 See_Comment N [Automate d message] The code = CK-MB INDEX) system w [facility] generated this result transmit kuldip reference range : <=2.5. The reference range was not used to interpr et this result as abiodun l/abnormal. [facility] HospitalUotacruDCSFWDGDQ9242-68-08 15:45:45 Test Item Value Reference Range Interpretation Comments Lactic Acid Lvl (test code = Lactic 1.9 0.5-2.2 N Acid Lvl) [facility] HospitalIkbjnocFWJKBCSMD3770-96-65 15:45:45 Test Item Value Reference Range Interpretation Comments CK MB (test code = CK MB) 1.1 0.5-3.6 N [facility] HospitalHzfkptmBMMAGTVWY2247-09-10 15:45:45 Test Item Value Reference Range Interpretation Comments Troponin-I (test code no gt See_Comment N [Auto mated message] The = Troponin-I) system which g enerated this result transmit kuldip reference range : <=0.40. The reference r nilam was not used to interpr et this result as abiodun l/abnormal. [facility] HospitalXnzqjnsDUHIBHIMU2422-69-44 15:45:45 Test Item Value Reference Range Interpretation Comments eGFR (test code = eGFR) 82 [facility] HospitalQqqdemkMZENSHVTL5120-38-78 15:45:45 Test Item Value Reference Range Interpretation Comments BUN (test code = BUN) 7 7-22 N [facility]QxbcelcIWCQCGRNQ6364-88-02 15:45:45 Test Item Value Reference Range Interpretation Comments Potassium Lvl (test code = Potassium 3.9 3.5-5.1 N Lvl) [facility]EkcbbhiPOWBOTWZV2846-18-38 15:45:45 Test Item Value Reference Range Interpretation Comments Calcium Lvl (test code = Calcium Lvl) 9.6 8.5-10.5 N [facility] HospitalYdwjhixGAXGBFMJE2179-70-45 15:45:45 Test Item Value Reference Range Interpretation Comments AGAP (test code = AGAP) 12.9 10.0-20.0 N [facility] HospitalUebrlcmMCYRZCUSN1491-40-65 15:45:45 Test Item Value Reference Range Interpretation Comments Glucose Lvl (test code = Glucose Lvl) 131 70-99 H [facility] HospitalWrczrerWJVLIQUCM8698-02-91 15:45:45 Test Item Value Reference Range Interpretation Comments Chloride Lvl (test code = Chloride Lvl) 102 95-109 N [facility] HospitalUuxiytoNKODFRTGL8692-21-41 15:45:45 Test Item Value Reference Range Interpretation Comments CO2 (test code = CO2) 24 24-32 N [facility] HospitalFetcovzHVUCMQNWZ7591-01-59 15:45:45 Test Item Value Reference Range Interpretation Comments Creatinine Lvl (test code = Creatinine 0.9 0.5-1.4 N Lvl) [facility] HospitalExqaootZBFBLPEIO8830-69-48 15:45:45 Test Item Value Reference Range Interpretation Comments Sodium Lvl (test code = Sodium Lvl) 135 135-145 N [facility] HospitalGxddbnfSXFRLOAYL6538-73-83 15:45:45 Test Item Value Reference Range Interpretation Comments Total CK (test code = Total CK) 469 12-191 H [facility]2013-12-13 15:45:37 Test Item Value Reference Range Interpretation Comments Influ A (test code = Negative (03/07/2013 N Influ A) 09:45:37) [facility]2013-12-13 15:45:37 Test Item Value Reference Range Interpretation Comments Influ B (test code = Negative 1(03/07/2013 N Influ B) 09:45:37) [facility]2013-12-13 15:45:37 Test Item Value Reference Range Interpretation Comments Influ A (test code = Negative (03/07/2013 N Influ A) 09:45:37) [facility]2013-12-13 15:45:37 Test Item Value Reference Range Interpretation Comments Influ B (test code = Negative 1(03/07/2013 N Influ B) 09:45:37) [facility]2013-12-13 15:45:37 Test Item Value Reference Range Interpretation Comments Influ A (test code = Negative (03/07/2013 N Influ A) 09:45:37) [id number] 15:45:37 Test Item Value Reference Range Interpretation Comments Influ B (test code = Negative 1(03/07/2013 N Influ B) 09:45:37) [facility] DJDBVLNL4888-55-71 15:45:37 Test Item Value Reference Range Interpretation Comments Influ A (test code = Negative (03/07/2013 N Influ A) 09:45:37) [facility] KGDTMFAH7549-96-07 15:45:37 Test Item Value Reference Range Interpretation Comments Influ B (test code = Negative 1(03/07/2013 N Influ B) 09:45:37) [facility] SCNCGWWD7040-74-70 15:45:37 Test Item Value Reference Range Interpretation Comments Influ A (test code = Negative (03/07/2013 N Influ A) 09:45:37) [facility] [id number] 15:45:37 Test Item Value Reference Range Interpretation Comments Influ B (test code = Negative 1(03/07/2013 N Influ B) 09:45:37) [facility] GBDLRYQY6130-76-39 15:45:37 Test Item Value Reference Range Interpretation Comments Influ A (test code = Negative (03/07/2013 N Influ A) 09:45:37) [facility] CPEAHYLY9488-08-75 15:45:37 Test Item Value Reference Range Interpretation Comments Influ B (test code = Negative 1(03/07/2013 N Influ B) 09:45:37) [facility] BONVWNSV7030-89-31 15:45:37 Test Item Value Reference Range Interpretation Comments Influ A (test code = Negative (03/07/2013 N Influ A) 09:45:37) [facility] [id number] 15:45:37 Test Item Value Reference Range Interpretation Comments Influ B (test code = Negative 1(03/07/2013 N Influ B) 09:45:37) [facility] UjdihwgQOAJEXAOPM0390-81-98 15:45:00 Test Item Value Reference Range Interpretation Comments Eosinophils (test code = 0.1 See_Comment N [A utomated message] The Eosinophils) system which ge nerated this result tra nsmitted reference range : <=4.0. The reference r nilam was not used to int erpret this result as normal/abnormal . [facility] CenterBcpvvghKRBKBVAUSW5134-27-93 15:45:00 Test Item Value Reference Range Interpretation Comments Basophils (test code = 0.0 See_Comment N [Aut omated message] The Basophils) system which ge nerated this result tra nsmitted reference range : <=1.0. The reference r nilam was not used to int erpret this result as normal/abnormal . [facility] CenterOyfktbrRXYCGRMSJY8475-58-82 15:45:00 Test Item Value Reference Range Interpretation Comments Target Cell (test code Slight A = Target Cell) *ABN*(03/07/2013 09:45:00) [facility] CenterFekhbxaGGDTLTDMQX7354-09-39 15:45:00 Test Item Value Reference Range Interpretation Comments Elliptocyte (test code = Slight A Elliptocyte) *ABN*(03/07/2013 09:45:00) [facility] CenterHgrpmftQXRGDJBTTY4354-71-44 15:45:00 Test Item Value Reference Range Interpretation Comments Plt Morph (test code = Normal (03/07/2013 N Plt Morph) 09:45:00) [facility] CenterDjtxnymXTLOGXJXWX0397-55-34 15:45:00 Test Item Value Reference Range Interpretation Comments Basophils # (test code 0.0 See_Comment N [Aut omated message] The = Basophils #) system which generated this result tra nsmitted reference range : <=0.2. The reference r nilam was not used to int erpret this result as normal/abnormal . [facility] CenterIaluglzGQDUTMJORE7682-09-85 15:45:00 Test Item Value Reference Range Interpretation Comments Microcyte (test code = 1+ *ABN*(03/07/2013 A Microcyte) 09:45:00) [facility] CenterUowjeqtYEATIPMJBE5364-83-69 15:45:00 Test Item Value Reference Range Interpretation Comments Lymphocytes # (test code = Lymphocytes 0.2 1.0-5.5 L #) [facility] CenterEhkzjwcPPYIGWLNZZ3683-08-96 15:45:00 Test Item Value Reference Range Interpretation Comments Eosinophils # (test code 0.0 See_Comment N [A utomated message] The = Eosinophils #) system whic h generated this result tra nsmitted reference range : <=0.5. The reference r nilam was not used to int erpret this result as normal/abnormal . [facility] CenterBxximwlXBDHEEOCUZ1006-94-80 15:45:00 Test Item Value Reference Range Interpretation Comments Monocytes # (test code 0.4 See_Comment N [Aut omated message] The = Monocytes #) system which generated this result tra nsmitted reference range : <=0.8. The reference r nilam was not used to int erpret this result as normal/abnormal . [facility] CenterRdbonruDSZFMJNWDM6904-01-27 15:45:00 Test Item Value Reference Range Interpretation Comments Segs-Bands # (test code = Segs-Bands #) 6.7 1.5-8.1 N [facility] CenterLaruwsfAECVZUTJFE6559-70-83 15:45:00 Test Item Value Reference Range Interpretation Comments Segs (test code = Segs) 91.4 45.0-75.0 H [facility] CenterXbqabkoVQIQMCROTT4592-88-04 15:45:00 Test Item Value Reference Range Interpretation Comments Lymphocytes (test code = Lymphocytes) 3.3 20.0-40.0 L [facility] CenterXyqwauqRFAWKAVEUU4168-88-16 15:45:00 Test Item Value Reference Range Interpretation Comments Monocytes (test code = Monocytes) 5.2 2.0-12.0 N [facility] CenterOvfjozjGANJHAYCNU5565-27-14 15:45:00 Test Item Value Reference Range Interpretation Comments Polychrom (test code = Slight (03/07/2013 N Polychrom) 09:45:00) [facility] CenterKmwehdpSEIUUYUTFJ5741-71-81 15:45:00 Test Item Value Reference Range Interpretation Comments Hypochrom (test code = Slight (03/07/2013 N Hypochrom) 09:45:00) [facility] CenterZzulzbjEWOTHDTEQC7857-62-81 15:45:00 Test Item Value Reference Range Interpretation Comments RBC X 10x6 (test code = RBC X 10x6) 3.99 4.20-5.40 L [facility] CenterUvecakzOQZFSRYASF7094-73-57 15:45:00 Test Item Value Reference Range Interpretation Comments Hgb (test code = Hgb) 8.3 12.0-16.0 L [facility] CenterGiehwulNMCKGRSGSW3812-74-75 15:45:00 Test Item Value Reference Range Interpretation Comments WBC X 10x3 (test code = WBC X 10x3) 7.3 3.7-10.4 N [facility] CenterHdpprewIGPBIOQGDE6099-66-62 15:45:00 Test Item Value Reference Range Interpretation Comments Platelet (test code = Platelet) 305 133-450 N [facility] CenterXvbklfoCNJSSFESJE4161-04-96 15:45:00 Test Item Value Reference Range Interpretation Comments RDW (test code = RDW) 17.9 11.5-14.5 H [facility] CenterOwbclccFKFWICDJKS8057-09-87 15:45:00 Test Item Value Reference Range Interpretation Comments Hct (test code = Hct) 26.1 36.0-48.0 L [facility] CenterUjugxagLSDSFRVVHI9672-70-73 15:45:00 Test Item Value Reference Range Interpretation Comments MCH (test code = MCH) 20.7 pg 27.0-31.0 L [facility] CenterGtreqplQSHDGKCVJF2811-35-89 15:45:00 Test Item Value Reference Range Interpretation Comments MCV (test code = MCV) 65.4 81.0-99.0 L [facility] CenterVtagbtuUOJMVFGUPU5722-87-38 15:45:00 Test Item Value Reference Range Interpretation Comments MCHC (test code = MCHC) 31.7 32.0-36.0 L [facility] CenterDsbusdxZEVPNTZKOR3302-31-95 15:45:00 Test Item Value Reference Range Interpretation Comments MPV (test code = MPV) 8.0 7.4-10.4 N [facility] CenterDmibkbtKWKBVUSADO7159-98-44 15:45:00 Test Item Value Reference Range Interpretation Comments Eosinophils (test code = 0.1 See_Comment N [A utomated message] The Eosinophils) system which ge nerated this result tra nsmitted reference range : <=4.0. The reference r nilam was not used to int erpret this result as normal/abnormal . [facility] CenterDrkzyifSUKPJUZLKF4865-64-09 15:45:00 Test Item Value Reference Range Interpretation Comments Basophils (test code = 0.0 See_Comment N [Aut omated message] The Basophils) system which ge nerated this result tra nsmitted reference range : <=1.0. The reference r nilam was not used to int erpret this result as normal/abnormal . [facility] CenterOqavimuBLOMCSXUMI8666-08-80 15:45:00 Test Item Value Reference Range Interpretation Comments Target Cell (test code Slight A = Target Cell) *ABN*(03/07/2013 09:45:00) [facility] CenterMznmxlnLNNKTFGONV6194-52-49 15:45:00 Test Item Value Reference Range Interpretation Comments Elliptocyte (test code = Slight A Elliptocyte) *ABN*(03/07/2013 09:45:00) [facility] CenterGtehdouTWJDZGYUUN7786-80-44 15:45:00 Test Item Value Reference Range Interpretation Comments Plt Morph (test code = Normal (03/07/2013 N Plt Morph) 09:45:00) [facility] CenterGfylpgfOQBOMZPQMS3150-34-63 15:45:00 Test Item Value Reference Range Interpretation Comments Basophils # (test code 0.0 See_Comment N [Aut omated message] The = Basophils #) system which generated this result tra nsmitted reference range : <=0.2. The reference r nilam was not used to int erpret this result as normal/abnormal . [facility] CenterQomsymbIEWUKBKWQU7979-62-66 15:45:00 Test Item Value Reference Range Interpretation Comments Microcyte (test code = 1+ *ABN*(03/07/2013 A Microcyte) 09:45:00) [facility] CenterHlnbrxnAUFSISLPNY5047-21-44 15:45:00 Test Item Value Reference Range Interpretation Comments Lymphocytes # (test code = Lymphocytes 0.2 1.0-5.5 L #) [facility] CenterRfqnojlZEVROZQACI1955-43-05 15:45:00 Test Item Value Reference Range Interpretation Comments Eosinophils # (test code 0.0 See_Comment N [A utomated message] The = Eosinophils #) system whic h generated this result tra nsmitted reference range : <=0.5. The reference r nilam was not used to int erpret this result as normal/abnormal . [facility] CenterOibzbkuRSWPKAOKWP5592-60-91 15:45:00 Test Item Value Reference Range Interpretation Comments Monocytes # (test code 0.4 See_Comment N [Aut omated message] The = Monocytes #) system which generated this result tra nsmitted reference range : <=0.8. The reference r nilam was not used to int erpret this result as normal/abnormal . [facility] CenterMgbyjsnNLKLXZDYGJ9376-10-35 15:45:00 Test Item Value Reference Range Interpretation Comments Segs-Bands # (test code = Segs-Bands #) 6.7 1.5-8.1 N [facility] CenterGcofngxMKPWPQMUYG1804-77-80 15:45:00 Test Item Value Reference Range Interpretation Comments Segs (test code = Segs) 91.4 45.0-75.0 H [facility] CenterAhdriwbLRJZMGOGET2534-48-04 15:45:00 Test Item Value Reference Range Interpretation Comments Lymphocytes (test code = Lymphocytes) 3.3 20.0-40.0 L [facility] CenterTgkmmseLMKYQVONII7233-71-65 15:45:00 Test Item Value Reference Range Interpretation Comments Monocytes (test code = Monocytes) 5.2 2.0-12.0 N [facility] CenterLwzqnqpXUTBJVTUKW7432-91-53 15:45:00 Test Item Value Reference Range Interpretation Comments Polychrom (test code = Slight (03/07/2013 N Polychrom) 09:45:00) [facility] CenterUfyyoduYGULBVPINK6601-96-00 15:45:00 Test Item Value Reference Range Interpretation Comments Hypochrom (test code = Slight (03/07/2013 N Hypochrom) 09:45:00) [facility] CenterVvmwmwcTPMPQPPWVK4938-81-65 15:45:00 Test Item Value Reference Range Interpretation Comments RBC X 10x6 (test code = RBC X 10x6) 3.99 4.20-5.40 L [facility] CenterQruvrplDZWZDMGIKB2058-09-95 15:45:00 Test Item Value Reference Range Interpretation Comments Hgb (test code = Hgb) 8.3 12.0-16.0 L [facility] CenterVgeokkyVBXESSMVTE8715-26-06 15:45:00 Test Item Value Reference Range Interpretation Comments WBC X 10x3 (test code = WBC X 10x3) 7.3 3.7-10.4 N [facility] CenterTwwpiaxJONYYDOFII3793-12-15 15:45:00 Test Item Value Reference Range Interpretation Comments Platelet (test code = Platelet) 305 133-450 N [facility] CenterBeglojzCUNWJLPKHH8573-27-88 15:45:00 Test Item Value Reference Range Interpretation Comments RDW (test code = RDW) 17.9 11.5-14.5 H [facility] CenterUgqawpiSSYBTUKRPH3882-44-19 15:45:00 Test Item Value Reference Range Interpretation Comments Hct (test code = Hct) 26.1 36.0-48.0 L [facility] CenterXkgmpibICOLLBJIBX7132-55-04 15:45:00 Test Item Value Reference Range Interpretation Comments MCH (test code = MCH) 20.7 pg 27.0-31.0 L [facility] CenterGnhmizbJOJWHRNNEX9928-50-00 15:45:00 Test Item Value Reference Range Interpretation Comments MCV (test code = MCV) 65.4 81.0-99.0 L [facility] CenterEaieadhSXKPHPJUQD5142-85-30 15:45:00 Test Item Value Reference Range Interpretation Comments MCHC (test code = MCHC) 31.7 32.0-36.0 L [facility] CenterNprasisENIHHLZVUM3706-87-46 15:45:00 Test Item Value Reference Range Interpretation Comments MPV (test code = MPV) 8.0 7.4-10.4 N [facility] CenterHucucgqIDQLRVQLMD2573-76-71 15:45:00 Test Item Value Reference Range Interpretation Comments Eosinophils (test code = 0.1 See_Comment N [A utomated message] The Eosinophils) system which ge nerated this result tra nsmitted reference range : <=4.0. The reference r nilam was not used to int erpret this result as normal/abnormal . [facility] CenterJzokfniTCVHVMOHGJ2392-26-34 15:45:00 Test Item Value Reference Range Interpretation Comments Basophils (test code = 0.0 See_Comment N [Aut omated message] The Basophils) system which ge nerated this result tra nsmitted reference range : <=1.0. The reference r nilam was not used to int erpret this result as normal/abnormal . [facility] CenterKwprzgjXUCLJQRBJM6305-27-56 15:45:00 Test Item Value Reference Range Interpretation Comments Target Cell (test code Slight A = Target Cell) *ABN*(03/07/2013 09:45:00) [facility] CenterKijmxnzLUTUDNBIYJ0295-82-25 15:45:00 Test Item Value Reference Range Interpretation Comments Elliptocyte (test code = Slight A Elliptocyte) *ABN*(03/07/2013 09:45:00) [facility] CenterVofshrtGXZYNMLKCJ6880-92-66 15:45:00 Test Item Value Reference Range Interpretation Comments Plt Morph (test code = Normal (03/07/2013 N Plt Morph) 09:45:00) [facility] CenterWouzccmWSUYNGVGSF6828-59-43 15:45:00 Test Item Value Reference Range Interpretation Comments Basophils # (test code 0.0 See_Comment N [Aut omated message] The = Basophils #) system which generated this result tra nsmitted reference range : <=0.2. The reference r nilam was not used to int erpret this result as normal/abnormal . [facility] CenterEcjdojkGMELJHMYCI1808-88-20 15:45:00 Test Item Value Reference Range Interpretation Comments Microcyte (test code = 1+ *ABN*(03/07/2013 A Microcyte) 09:45:00) [facility] CenterHlyvjneSGVHOQJECV0246-46-19 15:45:00 Test Item Value Reference Range Interpretation Comments Lymphocytes # (test code = Lymphocytes 0.2 1.0-5.5 L #) [facility] CenterUlqmafbXCJEFUWTTR6903-60-72 15:45:00 Test Item Value Reference Range Interpretation Comments Eosinophils # (test code 0.0 See_Comment N [A utomated message] The = Eosinophils #) system whic h generated this result tra nsmitted reference range : <=0.5. The reference r nilam was not used to int erpret this result as normal/abnormal . [facility] CenterClhykpuNYUVMUFANH8944-85-00 15:45:00 Test Item Value Reference Range Interpretation Comments Monocytes # (test code 0.4 See_Comment N [Aut omated message] The = Monocytes #) system which generated this result tra nsmitted reference range : <=0.8. The reference r nilam was not used to int erpret this result as normal/abnormal . [facility] CenterVkcmwiqPHVFCZOBMD7516-42-58 15:45:00 Test Item Value Reference Range Interpretation Comments Segs-Bands # (test code = Segs-Bands #) 6.7 1.5-8.1 N [facility] CenterZgdbpfkFQKUXLAAHB2855-49-85 15:45:00 Test Item Value Reference Range Interpretation Comments Segs (test code = Segs) 91.4 45.0-75.0 H [facility] CenterUfexderUCGJGFMUJB8015-30-03 15:45:00 Test Item Value Reference Range Interpretation Comments Lymphocytes (test code = Lymphocytes) 3.3 20.0-40.0 L [facility] CenterDsylosiNUDIDEAZCX9066-51-49 15:45:00 Test Item Value Reference Range Interpretation Comments Monocytes (test code = Monocytes) 5.2 2.0-12.0 N [facility] CenterMrcpkrxNLKXUQGBPI2062-34-49 15:45:00 Test Item Value Reference Range Interpretation Comments Polychrom (test code = Slight (03/07/2013 N Polychrom) 09:45:00) [facility] CenterRexnajqRDATRUIUHI4969-95-61 15:45:00 Test Item Value Reference Range Interpretation Comments Hypochrom (test code = Slight (03/07/2013 N Hypochrom) 09:45:00) [facility] CenterIytaafzWGLWPRTDRL6014-02-04 15:45:00 Test Item Value Reference Range Interpretation Comments RBC X 10x6 (test code = RBC X 10x6) 3.99 4.20-5.40 L [facility] CenterXdyihcaJWXPVFQGOW0502-97-54 15:45:00 Test Item Value Reference Range Interpretation Comments Hgb (test code = Hgb) 8.3 12.0-16.0 L [facility] CenterWneviljVXDFMXAYRE4756-62-02 15:45:00 Test Item Value Reference Range Interpretation Comments WBC X 10x3 (test code = WBC X 10x3) 7.3 3.7-10.4 N [facility] CenterHqdtcknECUOXCDVSE6249-53-71 15:45:00 Test Item Value Reference Range Interpretation Comments Platelet (test code = Platelet) 305 133-450 N [facility] CenterBkmybxnWTVRQREQPW3106-23-31 15:45:00 Test Item Value Reference Range Interpretation Comments RDW (test code = RDW) 17.9 11.5-14.5 H [facility] CenterYbppmfnCFYKPPUGSJ0302-30-11 15:45:00 Test Item Value Reference Range Interpretation Comments Hct (test code = Hct) 26.1 36.0-48.0 L [facility] CenterQliidjrVWRNFRULQN8177-11-22 15:45:00 Test Item Value Reference Range Interpretation Comments MCH (test code = MCH) 20.7 pg 27.0-31.0 L [facility] CenterPhxvjsxFUEYTSNEXV9799-30-83 15:45:00 Test Item Value Reference Range Interpretation Comments MCV (test code = MCV) 65.4 81.0-99.0 L [facility] CenterSgbwblmKILPCLXWEI8236-44-07 15:45:00 Test Item Value Reference Range Interpretation Comments MCHC (test code = MCHC) 31.7 32.0-36.0 L [facility] CenterErpamkrMRBTDPEWYK8263-87-80 15:45:00 Test Item Value Reference Range Interpretation Comments MPV (test code = MPV) 8.0 7.4-10.4 N [facility] CenterYdfusbdOEEKUNZQAO3593-65-69 15:45:00 Test Item Value Reference Range Interpretation Comments Eosinophils (test code = 0.1 See_Comment N [A utomated message] The Eosinophils) system which ge nerated this result tra nsmitted reference range : <=4.0. The reference r nilam was not used to int erpret this result as normal/abnormal . [facility] CenterPwzjotbDALVSAGRGX4973-54-32 15:45:00 Test Item Value Reference Range Interpretation Comments Basophils (test code = 0.0 See_Comment N [Aut omated message] The Basophils) system which ge nerated this result tra nsmitted reference range : <=1.0. The reference r nilam was not used to int erpret this result as normal/abnormal . [facility] CenterUsqrvzrEJWTFGYDXC9006-57-25 15:45:00 Test Item Value Reference Range Interpretation Comments Target Cell (test code Slight A = Target Cell) *ABN*(03/07/2013 09:45:00) [facility] CenterBamonsnJMQZWSYDKI7657-62-15 15:45:00 Test Item Value Reference Range Interpretation Comments Elliptocyte (test code = Slight A Elliptocyte) *ABN*(03/07/2013 09:45:00) [facility] CenterSlubkxqEWAXESEFIC4819-77-22 15:45:00 Test Item Value Reference Range Interpretation Comments Plt Morph (test code = Normal (03/07/2013 N Plt Morph) 09:45:00) [facility] CenterFvjphxiXAFGRCKTSN3365-22-39 15:45:00 Test Item Value Reference Range Interpretation Comments Basophils # (test code 0.0 See_Comment N [Aut omated message] The = Basophils #) system which generated this result tra nsmitted reference range : <=0.2. The reference r nilam was not used to int erpret this result as normal/abnormal . [facility] CenterTlypkzpMIBLUBUEMY7350-24-46 15:45:00 Test Item Value Reference Range Interpretation Comments Microcyte (test code = 1+ *ABN*(03/07/2013 A Microcyte) 09:45:00) [facility] CenterFtzburwRECTPRQFFK5329-84-60 15:45:00 Test Item Value Reference Range Interpretation Comments Lymphocytes # (test code = Lymphocytes 0.2 1.0-5.5 L #) [facility] CenterJpsquggGKXFETICOK2720-76-72 15:45:00 Test Item Value Reference Range Interpretation Comments Eosinophils # (test code 0.0 See_Comment N [A utomated message] The = Eosinophils #) system whic h generated this result tra nsmitted reference range : <=0.5. The reference r nilam was not used to int erpret this result as normal/abnormal . [facility] CenterQmkihthOYHWLEIJBO4513-06-10 15:45:00 Test Item Value Reference Range Interpretation Comments Monocytes # (test code 0.4 See_Comment N [Aut omated message] The = Monocytes #) system which generated this result tra nsmitted reference range : <=0.8. The reference r nilam was not used to int erpret this result as normal/abnormal . [facility] CenterMmpdjzeCKGFGILDUV6013-67-93 15:45:00 Test Item Value Reference Range Interpretation Comments Segs-Bands # (test code = Segs-Bands #) 6.7 1.5-8.1 N [facility] CenterNpfercgLJSVGKRSVA9082-41-82 15:45:00 Test Item Value Reference Range Interpretation Comments Segs (test code = Segs) 91.4 45.0-75.0 H [facility] CenterCzlcojqSXEFATHEDN1674-02-04 15:45:00 Test Item Value Reference Range Interpretation Comments Lymphocytes (test code = Lymphocytes) 3.3 20.0-40.0 L [facility] CenterNgjvflyTUBOMFAQBD5188-81-84 15:45:00 Test Item Value Reference Range Interpretation Comments Monocytes (test code = Monocytes) 5.2 2.0-12.0 N [facility] CenterWakoitxTIRJMELDUS2672-96-02 15:45:00 Test Item Value Reference Range Interpretation Comments Polychrom (test code = Slight (03/07/2013 N Polychrom) 09:45:00) [facility] CenterWxobdlwSAPWPKIJUX1187-14-35 15:45:00 Test Item Value Reference Range Interpretation Comments Hypochrom (test code = Slight (03/07/2013 N Hypochrom) 09:45:00) [facility] CenterPsjelheTKTHCVOVEP1318-24-23 15:45:00 Test Item Value Reference Range Interpretation Comments RBC X 10x6 (test code = RBC X 10x6) 3.99 4.20-5.40 L [facility] CenterImqjelgCPUNUDCQGE5785-87-18 15:45:00 Test Item Value Reference Range Interpretation Comments Hgb (test code = Hgb) 8.3 12.0-16.0 L [facility] CenterDeuziceTVDWEHIHBN6688-89-81 15:45:00 Test Item Value Reference Range Interpretation Comments WBC X 10x3 (test code = WBC X 10x3) 7.3 3.7-10.4 N [facility] CenterVqkbwydHEEAUTHBEK5386-39-77 15:45:00 Test Item Value Reference Range Interpretation Comments Platelet (test code = Platelet) 305 133-450 N [facility] CenterRcvkusoIQOFTRPRHF1129-77-54 15:45:00 Test Item Value Reference Range Interpretation Comments RDW (test code = RDW) 17.9 11.5-14.5 H [facility] CenterLjvohfnWOMNBLZZQW6616-07-25 15:45:00 Test Item Value Reference Range Interpretation Comments Hct (test code = Hct) 26.1 36.0-48.0 L [facility] CenterYqgkhkoXFVOYNTKNB8492-85-70 15:45:00 Test Item Value Reference Range Interpretation Comments MCH (test code = MCH) 20.7 pg 27.0-31.0 L [facility] CenterZtdgubsHUNVVYASJQ5199-49-86 15:45:00 Test Item Value Reference Range Interpretation Comments MCV (test code = MCV) 65.4 81.0-99.0 L [facility] CenterSsxowxxOUSSQQHIBH9760-38-06 15:45:00 Test Item Value Reference Range Interpretation Comments MCHC (test code = MCHC) 31.7 32.0-36.0 L [facility] CenterAcoxxtvOESBZJCVGN1167-08-53 15:45:00 Test Item Value Reference Range Interpretation Comments MPV (test code = MPV) 8.0 7.4-10.4 N [facility] CenterVxcoiwhVATEWVHOHW3779-66-65 15:45:00 Test Item Value Reference Range Interpretation Comments Eosinophils (test code = 0.1 See_Comment N [A utomated message] The Eosinophils) system which ge nerated this result tra nsmitted reference range : <=4.0. The reference r nilam was not used to int erpret this result as normal/abnormal . [facility] CenterWhbxplmRNRSAELZDJ8558-99-38 15:45:00 Test Item Value Reference Range Interpretation Comments Basophils (test code = 0.0 See_Comment N [Aut omated message] The Basophils) system which ge nerated this result tra nsmitted reference range : <=1.0. The reference r nilam was not used to int erpret this result as normal/abnormal . [place] 434023-12-13 15:45:00 Test Item Value Reference Range Interpretation Comments Target Cell (test code Slight A = Target Cell) *ABN*(03/07/2013 09:45:00) [facility] CenterLvkmdlfLJOWVVPHLE3353-98-33 15:45:00 Test Item Value Reference Range Interpretation Comments Elliptocyte (test code = Slight A Elliptocyte) *ABN*(03/07/2013 09:45:00) [facility] CenterWiiddxuCLHVTSABRO8324-59-11 15:45:00 Test Item Value Reference Range Interpretation Comments Plt Morph (test code = Normal (03/07/2013 N Plt Morph) 09:45:00) [facility] CenterQtvrywlZQLVSKXMZZ8398-22-87 15:45:00 Test Item Value Reference Range Interpretation Comments Basophils # (test code 0.0 See_Comment N [Aut omated message] The = Basophils #) system which generated this result tra nsmitted reference range : <=0.2. The reference r nilam was not used to int erpret this result as normal/abnormal . [facility] CenterMhqjwkhTXEUCASIWJ8195-25-46 15:45:00 Test Item Value Reference Range Interpretation Comments Microcyte (test code = 1+ *ABN*(03/07/2013 A Microcyte) 09:45:00) [facility] CenterDhnhsfvDKZXSXGLXX0582-17-91 15:45:00 Test Item Value Reference Range Interpretation Comments Lymphocytes # (test code = Lymphocytes 0.2 1.0-5.5 L #) [facility] CenterQlqdvbeNBCKZLVYQD0526-21-01 15:45:00 Test Item Value Reference Range Interpretation Comments Eosinophils # (test code 0.0 See_Comment N [A utomated message] The = Eosinophils #) system whic h generated this result tra nsmitted reference range : <=0.5. The reference r nilam was not used to int erpret this result as normal/abnormal . [facility] CenterDyozvndYWFLGNVYAL0711-00-54 15:45:00 Test Item Value Reference Range Interpretation Comments Monocytes # (test code 0.4 See_Comment N [Aut omated message] The = Monocytes #) system which generated this result tra nsmitted reference range : <=0.8. The reference r nilam was not used to int erpret this result as normal/abnormal . [facility] CenterUvpzvpiUZXKFUJBKA1545-43-52 15:45:00 Test Item Value Reference Range Interpretation Comments Segs-Bands # (test code = Segs-Bands #) 6.7 1.5-8.1 N [facility] CenterMagzxxmJENLNYRGQJ6132-80-32 15:45:00 Test Item Value Reference Range Interpretation Comments Segs (test code = Segs) 91.4 45.0-75.0 H [facility] CenterXcrnthlVIFZTPFLDL3542-63-83 15:45:00 Test Item Value Reference Range Interpretation Comments Lymphocytes (test code = Lymphocytes) 3.3 20.0-40.0 L [facility] CenterGhkjawlYKTTNCTBWV4594-25-69 15:45:00 Test Item Value Reference Range Interpretation Comments Monocytes (test code = Monocytes) 5.2 2.0-12.0 N [facility] CenterGhukherMKJMZYAYZZ8111-02-52 15:45:00 Test Item Value Reference Range Interpretation Comments Polychrom (test code = Slight (03/07/2013 N Polychrom) 09:45:00) [facility] CenterKxfpwxiRUHTGFAAFJ0848-16-82 15:45:00 Test Item Value Reference Range Interpretation Comments Hypochrom (test code = Slight (03/07/2013 N Hypochrom) 09:45:00) [facility] CenterPhhnphfOMEPHKDJRY1848-42-20 15:45:00 Test Item Value Reference Range Interpretation Comments RBC X 10x6 (test code = RBC X 10x6) 3.99 4.20-5.40 L [facility] CenterMgevipwVMEZYEZUCH6819-37-52 15:45:00 Test Item Value Reference Range Interpretation Comments Hgb (test code = Hgb) 8.3 12.0-16.0 L [facility] CenterYxvrsglXJEYSAYKBC6391-32-31 15:45:00 Test Item Value Reference Range Interpretation Comments WBC X 10x3 (test code = WBC X 10x3) 7.3 3.7-10.4 N [facility] CenterBokwdhbWPYRFIXDZO9711-29-78 15:45:00 Test Item Value Reference Range Interpretation Comments Platelet (test code = Platelet) 305 133-450 N [facility] CenterQxxjuciMXMPQEPTFH7193-06-54 15:45:00 Test Item Value Reference Range Interpretation Comments RDW (test code = RDW) 17.9 11.5-14.5 H [facility] CenterAjhyrajWSFPZUFJUH7217-81-86 15:45:00 Test Item Value Reference Range Interpretation Comments Hct (test code = Hct) 26.1 36.0-48.0 L [facility] CenterAjrlbnaJUXBYJMZPU1545-17-50 15:45:00 Test Item Value Reference Range Interpretation Comments MCH (test code = MCH) 20.7 pg 27.0-31.0 L [facility] CenterIttqfibGPTOJOTEUP4036-62-51 15:45:00 Test Item Value Reference Range Interpretation Comments MCV (test code = MCV) 65.4 81.0-99.0 L [facility] CenterYuqqstoLTODDGAYGO9957-31-04 15:45:00 Test Item Value Reference Range Interpretation Comments MCHC (test code = MCHC) 31.7 32.0-36.0 L [facility] CenterWenblryAWSEKMAQDX9999-31-16 15:45:00 Test Item Value Reference Range Interpretation Comments MPV (test code = MPV) 8.0 7.4-10.4 N [facility] CenterAzbmhrwZJTZDKOYWV8807-64-99 15:45:00 Test Item Value Reference Range Interpretation Comments Eosinophils (test code = 0.1 See_Comment N [A utomated message] The Eosinophils) system which ge nerated this result tra nsmitted reference range : <=4.0. The reference r nilam was not used to int erpret this result as normal/abnormal . [facility] CenterCbcfuzeUZVTVVCYUQ6612-76-09 15:45:00 Test Item Value Reference Range Interpretation Comments Basophils (test code = 0.0 See_Comment N [Aut omated message] The Basophils) system which ge nerated this result tra nsmitted reference range : <=1.0. The reference r nilam was not used to int erpret this result as normal/abnormal . [facility] CenterAorvectTDJRUNWYEB8554-89-98 15:45:00 Test Item Value Reference Range Interpretation Comments Target Cell (test code Slight A = Target Cell) *ABN*(03/07/2013 09:45:00) [facility] CenterGzgchqcMUXUWLXYIZ8291-35-95 15:45:00 Test Item Value Reference Range Interpretation Comments Elliptocyte (test code = Slight A Elliptocyte) *ABN*(03/07/2013 09:45:00) [facility] CenterQaviabiWLDCLUTLHI9991-20-26 15:45:00 Test Item Value Reference Range Interpretation Comments Plt Morph (test code = Normal (03/07/2013 N Plt Morph) 09:45:00) [facility] CenterHdirvudSDETLIYFRX2318-89-60 15:45:00 Test Item Value Reference Range Interpretation Comments Basophils # (test code 0.0 See_Comment N [Aut omated message] The = Basophils #) system which generated this result tra nsmitted reference range : <=0.2. The reference r nilam was not used to int erpret this result as normal/abnormal . [facility] CenterGatwsmvJPVRFGNPLF2529-10-65 15:45:00 Test Item Value Reference Range Interpretation Comments Microcyte (test code = 1+ *ABN*(03/07/2013 A Microcyte) 09:45:00) [facility] CenterNotztisEAARYEJTSP4301-16-23 15:45:00 Test Item Value Reference Range Interpretation Comments Lymphocytes # (test code = Lymphocytes 0.2 1.0-5.5 L #) [facility] CenterBikepamSPSTOVXETQ2307-97-17 15:45:00 Test Item Value Reference Range Interpretation Comments Eosinophils # (test code 0.0 See_Comment N [A utomated message] The = Eosinophils #) system whic h generated this result tra nsmitted reference range : <=0.5. The reference r nilam was not used to int erpret this result as normal/abnormal . [facility] CenterGtilqsdTXGFOUMTIP5301-41-98 15:45:00 Test Item Value Reference Range Interpretation Comments Monocytes # (test code 0.4 See_Comment N [Aut omated message] The = Monocytes #) system which generated this result tra nsmitted reference range : <=0.8. The reference r nilam was not used to int erpret this result as normal/abnormal . [facility] CenterDmirgrmRYTFDPULGT2509-59-14 15:45:00 Test Item Value Reference Range Interpretation Comments Segs-Bands # (test code = Segs-Bands #) 6.7 1.5-8.1 N [facility] CenterMqtgynoWUSNLGOFHG9587-18-37 15:45:00 Test Item Value Reference Range Interpretation Comments Segs (test code = Segs) 91.4 45.0-75.0 H [facility] CenterFtnkolkEABHZJPDJB3697-23-83 15:45:00 Test Item Value Reference Range Interpretation Comments Lymphocytes (test code = Lymphocytes) 3.3 20.0-40.0 L [facility] CenterJfnxhiiUIVZZXCSDP0005-18-76 15:45:00 Test Item Value Reference Range Interpretation Comments Monocytes (test code = Monocytes) 5.2 2.0-12.0 N [facility] CenterDfmsmukIWKDKKORGE7309-91-38 15:45:00 Test Item Value Reference Range Interpretation Comments Polychrom (test code = Slight (03/07/2013 N Polychrom) 09:45:00) [facility] CenterUmcxpvoOBPCLQXIIE2532-27-37 15:45:00 Test Item Value Reference Range Interpretation Comments Hypochrom (test code = Slight (03/07/2013 N Hypochrom) 09:45:00) [facility] CenterPakzeezDMJZBGLNZB0352-43-97 15:45:00 Test Item Value Reference Range Interpretation Comments RBC X 10x6 (test code = RBC X 10x6) 3.99 4.20-5.40 L [facility] CenterLblxqbvHDZYKNBKXM1069-52-44 15:45:00 Test Item Value Reference Range Interpretation Comments Hgb (test code = Hgb) 8.3 12.0-16.0 L [facility] CenterSmbogkeJYGBGIGBIM8648-86-35 15:45:00 Test Item Value Reference Range Interpretation Comments WBC X 10x3 (test code = WBC X 10x3) 7.3 3.7-10.4 N [facility] CenterSmahqocXHMOJAEPDW7746-69-52 15:45:00 Test Item Value Reference Range Interpretation Comments Platelet (test code = Platelet) 305 133-450 N [facility] CenterTxbalniURBJNVQHFA8220-86-44 15:45:00 Test Item Value Reference Range Interpretation Comments RDW (test code = RDW) 17.9 11.5-14.5 H [facility] CenterHcgruxvESKSULMKFC7836-11-43 15:45:00 Test Item Value Reference Range Interpretation Comments Hct (test code = Hct) 26.1 36.0-48.0 L [facility] CenterCrbxoraUQQYHSHCZU5088-08-70 15:45:00 Test Item Value Reference Range Interpretation Comments MCH (test code = MCH) 20.7 pg 27.0-31.0 L [facility] CenterWddrbcjPUQIWRUVEX3252-65-74 15:45:00 Test Item Value Reference Range Interpretation Comments MCV (test code = MCV) 65.4 81.0-99.0 L [facility] CenterZfhwwmjIJZPAPUZJL9224-60-13 15:45:00 Test Item Value Reference Range Interpretation Comments MCHC (test code = MCHC) 31.7 32.0-36.0 L [facility] CenterUutotobCNTTYEGNXW6282-41-96 15:45:00 Test Item Value Reference Range Interpretation Comments MPV (test code = MPV) 8.0 7.4-10.4 N [facility] CenterUewrrndZLFNCMHELW1275-50-64 15:45:00 Test Item Value Reference Range Interpretation Comments Eosinophils (test code = 0.1 See_Comment N [A utomated message] The Eosinophils) system which ge nerated this result tra nsmitted reference range : <=4.0. The reference r nilam was not used to int erpret this result as normal/abnormal . [facility] CenterKbmrpouELEXWNNCTL8479-84-01 15:45:00 Test Item Value Reference Range Interpretation Comments Basophils (test code = 0.0 See_Comment N [Aut omated message] The Basophils) system which ge nerated this result tra nsmitted reference range : <=1.0. The reference r nilam was not used to int erpret this result as normal/abnormal . [facility] CenterFzbgcutWSIOHDPGZW7169-42-25 15:45:00 Test Item Value Reference Range Interpretation Comments Target Cell (test code Slight A = Target Cell) *ABN*(03/07/2013 09:45:00) [facility] CenterJyxnmboCUJIXVSPEQ8890-90-66 15:45:00 Test Item Value Reference Range Interpretation Comments Elliptocyte (test code = Slight A Elliptocyte) *ABN*(03/07/2013 09:45:00) [facility] CenterAfwwrpeYQGFGJOEGQ3380-86-61 15:45:00 Test Item Value Reference Range Interpretation Comments Plt Morph (test code = Normal (03/07/2013 N Plt Morph) 09:45:00) [facility] CenterEikmyjpNBGKVBFHNZ2215-74-98 15:45:00 Test Item Value Reference Range Interpretation Comments Basophils # (test code 0.0 See_Comment N [Aut omated message] The = Basophils #) system which generated this result tra nsmitted reference range : <=0.2. The reference r nilam was not used to int erpret this result as normal/abnormal . [facility] CenterKoqnjtnRYEFAADLZH7689-59-12 15:45:00 Test Item Value Reference Range Interpretation Comments Microcyte (test code = 1+ *ABN*(03/07/2013 A Microcyte) 09:45:00) [facility] CenterMxwxhpcAMJZWCMWND3611-67-09 15:45:00 Test Item Value Reference Range Interpretation Comments Lymphocytes # (test code = Lymphocytes 0.2 1.0-5.5 L #) [facility] CenterJklqbwbBUNOEOVGAC9090-96-79 15:45:00 Test Item Value Reference Range Interpretation Comments Eosinophils # (test code 0.0 See_Comment N [A utomated message] The = Eosinophils #) system whic h generated this result tra nsmitted reference range : <=0.5. The reference r nilam was not used to int erpret this result as normal/abnormal . [facility] CenterPmmhdfbBPWDDSZCBS6144-98-30 15:45:00 Test Item Value Reference Range Interpretation Comments Monocytes # (test code 0.4 See_Comment N [Aut omated message] The = Monocytes #) system which generated this result tra nsmitted reference range : <=0.8. The reference r nilam was not used to int erpret this result as normal/abnormal . [facility] CenterUgqxcseHRABXWZAEP8824-89-38 15:45:00 Test Item Value Reference Range Interpretation Comments Segs-Bands # (test code = Segs-Bands #) 6.7 1.5-8.1 N [facility] CenterEejyydoNFZIJCSTBL5973-36-29 15:45:00 Test Item Value Reference Range Interpretation Comments Segs (test code = Segs) 91.4 45.0-75.0 H [facility] CenterUihjucvTTFTTADQHT1045-20-24 15:45:00 Test Item Value Reference Range Interpretation Comments Lymphocytes (test code = Lymphocytes) 3.3 20.0-40.0 L [facility] CenterSqqyutyFJGQUAWLUP9715-04-73 15:45:00 Test Item Value Reference Range Interpretation Comments Monocytes (test code = Monocytes) 5.2 2.0-12.0 N [facility] CenterUkflfqkSRSQFRVRQC3944-10-79 15:45:00 Test Item Value Reference Range Interpretation Comments Polychrom (test code = Slight (03/07/2013 N Polychrom) 09:45:00) [facility] CenterFrqjivjVNVYVAWEPB1870-57-77 15:45:00 Test Item Value Reference Range Interpretation Comments Hypochrom (test code = Slight (03/07/2013 N Hypochrom) 09:45:00) [facility] CenterItcoyhxVGCWFKUCUV5586-07-30 15:45:00 Test Item Value Reference Range Interpretation Comments RBC X 10x6 (test code = RBC X 10x6) 3.99 4.20-5.40 L [facility] CenterGcrrmykUGFVZEMWAF1774-82-27 15:45:00 Test Item Value Reference Range Interpretation Comments Hgb (test code = Hgb) 8.3 12.0-16.0 L [facility] CenterCmakyauREMHOIIZMF9624-63-28 15:45:00 Test Item Value Reference Range Interpretation Comments WBC X 10x3 (test code = WBC X 10x3) 7.3 3.7-10.4 N [facility] CenterGacrcbsRKBEYAXZCV9137-98-00 15:45:00 Test Item Value Reference Range Interpretation Comments Platelet (test code = Platelet) 305 133-450 N [facility] CenterQusrtqqZTGUBWQXDC7438-66-65 15:45:00 Test Item Value Reference Range Interpretation Comments RDW (test code = RDW) 17.9 11.5-14.5 H [facility] CenterXazowwsCNABVUWZIQ1231-16-01 15:45:00 Test Item Value Reference Range Interpretation Comments Hct (test code = Hct) 26.1 36.0-48.0 L [facility] CenterWonozzsXFCZWMESML2664-71-32 15:45:00 Test Item Value Reference Range Interpretation Comments MCH (test code = MCH) 20.7 pg 27.0-31.0 L [facility] CenterYdibsqsDRETWPBZKV9986-49-57 15:45:00 Test Item Value Reference Range Interpretation Comments MCV (test code = MCV) 65.4 81.0-99.0 L [facility] CenterXxmdwljOQRNBGZMIV3563-63-53 15:45:00 Test Item Value Reference Range Interpretation Comments MCHC (test code = MCHC) 31.7 32.0-36.0 L [facility] CenterZrqhisyRBPKADNLOU3556-96-49 15:45:00 Test Item Value Reference Range Interpretation Comments MPV (test code = MPV) 8.0 7.4-10.4 N [facility]
[2022-02-09 06:40] LABS: Absolute Lymphocytes (CBC) 1.6 K/uL (0.7-4.9); Hematocrit 37.4 % (36.0-45.0); Lymphocytes % 33.7 % (15.3-44.8); MCV 87.9 fL (80-100); RBC Red Blood Cell Count 4.25 M/uL (3.86-4.86)
[2022-02-09 07:12] LABS: Urine Blood Negative (Negative); Urine Glucose Negative (Negative); Urine Protein Negative (Negative); Urine Specific Gravity 1.015 (1.005-1.030)
[2022-02-09 07:23] LABS: Urine Bacteria <20 /HPF (<20)
[2022-02-09 07:52] LABS: Potassium 3.4 mmol/L (3.5-5.1); Troponin High Sensitivity 6.1 pg/mL (<58.9)
[2022-02-09 08:13] LABS: Urine Specific Gravity/Preg 1.015 (1.005-1.030)
[2022-02-09] MEDS ORDERED: POTASSIUM 25 MEQ EFFERV TAB ONE (08:28)
--- NOTE | 2022-02-09 08:28 | EDPHYS ---
Physician Documentation [facility] Name: oRxana Sanchez Age: 46 yrs Sex: Female : 1975 Arrival Date: 02/09/2022 Time: 05:28 Bed 16 Private MD: MAGALIE Physician Shahbaz Corado HPI: 02/09 06:37 This 46 yrs old Black Female presents to ER via EMS with complaints of Shortness Of rt Breath. 06:37 Onset: The symptoms/episode began/occurred yesterday. Duration: The symptoms are rt continuous. The patient's shortness of breath is aggravated by nothing, is alleviated by nothing. Associated signs and symptoms: Pertinent positives: chest pain. Severity of symptoms: At their worst the symptoms were moderate. Patient presents to the ED with reported chest pain, dyspnea. This started last night. She also reports urinary frequency. The symptoms have not worsened over the past several hours. Is not exertional. It is aching nature, nonradiating. No other aggravating or alleviating factors.. 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 - Social history:: Smoking status: Patient denies any tobacco usage or history of. - Family history:: not pertinent. ROS: 06:37 Constitutional: Negative for fever, chills, and weight loss, Eyes: Negative for injury, rt pain, redness, and discharge, ENT: Negative for injury, pain, and discharge, Neck: Negative for injury, pain, and swelling, Abdomen/GI: Negative for abdominal pain, nausea, vomiting, diarrhea, and constipation, MS/Extremity: Negative for injury and deformity, Skin: Negative for injury, rash, and discoloration, Neuro: Negative for headache, weakness, numbness, tingling, and seizure, Psych: Negative for depression, anxiety, suicide ideation, homicidal ideation, and hallucinations. 06:37 Cardiovascular: Positive for chest pain, Negative for edema. 06:37 : Positive for urinary frequency, Negative for burning with urination. Exam: 06:37 Constitutional: This is a well developed, well nourished patient who is awake, alert, rt and in no acute distress. Head/Face: Normocephalic, atraumatic. Eyes: Pupils equal round and reactive to light, extra-ocular motions intact. Lids and lashes normal. Conjunctiva and sclera are non-icteric and not injected. Cornea within normal limits. Periorbital areas with no swelling, redness, or edema. ENT: Nares patent. No nasal discharge, no septal abnormalities noted. Tympanic membranes are normal and external auditory canals are clear. Oropharynx with no redness, swelling, or masses, exudates, or evidence of obstruction, uvula midline. Mucous membranes moist. Chest/axilla: Normal chest wall appearance and motion. Nontender with no deformity. No lesions are appreciated. Cardiovascular: Regular rate and rhythm with a normal S1 and S2. No gallops, murmurs, or rubs. Normal PMI, no JVD. No pulse deficits. Respiratory: Lungs have equal breath sounds bilaterally, clear to auscultation and percussion. No rales, rhonchi or wheezes noted. No increased work of breathing, no retractions or nasal flaring. Abdomen/GI: Soft, non-tender, with normal bowel sounds. No distension or tympany. No guarding or rebound. No evidence of tenderness throughout. Skin: Warm, dry with normal turgor. Normal color with no rashes, no lesions, and no evidence of cellulitis. MS/ Extremity: Pulses equal, no cyanosis. Neurovascular intact. Full, normal range of motion. Neuro: Awake and alert, GCS 15, oriented to person, place, time, and situation. Cranial nerves II-XII grossly intact. Motor strength 5/5 in all extremities. Sensory grossly intact. Cerebellar exam normal. Normal gait. Psych: Awake, alert, with orientation to person, place and time. Behavior, mood, and affect are within normal limits. 06:37 ECG was reviewed by the Attending Physician. 08:26 Musculoskeletal/extremity: DVT Exam: No signs of deep vein thrombosis. no pain, no olayinka swelling, no tenderness, negative Homans' sign noted on exam, no appreciated bluish discoloration, no erythema, no increased warmth. Vital Signs: 05:59 Weight 89.36 kg; Height 5 ft. 4 in. (162.56 cm); vc1 06:00 BP 125 / 82; Pulse 65; Resp 20 S; Temp 98(O); Pulse Ox 100% on R/A; Pain 0/10; aa9 07:14 BP 123 / 87; Pulse 59; Resp 15 S; Pulse Ox 100% on R/A; Pain 0/10; kc6 08:40 BP 137 / 98; Pulse 66; Resp 16 S; Pulse Ox 100% on R/A; Pain 0/10; kc6 05:59 Body Mass Index 33.81 (89.36 kg, 162.56 cm) vc1 MDM: 06:07 Patient medically screened. rt 08:24 Differential diagnosis: Anemia pneumonia, pulmonary edema, reactive airway disease, olayinka Unstable Angina. Antibiotic administration: Not indicated. The patient's Wells Deep Vein Thrombosis Score was calculated as follows: Total Score: 0-2 Pts- Low Risk. The patient's pulmonary embolism risk score was calculated as follows: Total Score: 0-2 points. This patient was found to be at low risk for a pulmonary embolism by using the Well's assessment criteria. Immunization status:. Data reviewed: vital signs, nurses notes, lab test result(s), EKG, radiologic studies, plain films. Data interpreted: quality assurance monitor: rate is 59 beats/min, rhythm is regular, Pulse oximetry: on room air is 100 %. Test interpretation: by ED physician or midlevel provider: ECG, plain radiologic studies. Counseling: I had a detailed discussion with the patient and/or guardian regarding: the historical points, exam findings, and any diagnostic results supporting the discharge/admit diagnosis, lab results, radiology results, the need for outpatient follow up, for definitive care, a family practitioner. 02/09 06:14 Order name: Basic Metabolic Panel; Complete Time: 08:21 rt 02/09 06:14 Order name: CBC with Diff; Complete Time: 07:03 rt 02/09 06:14 Order name: Troponin HS; Complete Time: 08:21 rt 02/09 06:14 Order name: Urine Microscopic Only; Complete Time: 08:21 rt 02/09 07:12 Order name: Urine Dipstick-Ancillary; Complete Time: 08:21 EDMS 02/09 07:19 Order name: Urine --Ancillary (enter results); Complete Time: 08:21 eb 02/09 06:14 Order name: XRAY Chest (1 view) rt 02/09 06:14 Order name: EKG; Complete Time: 06:14 rt 02/09 06:14 Order name: Cardiac monitoring; Complete Time: 07:04 rt 02/09 06:14 Order name: EKG - Nurse/Tech; Complete Time: 07:04 rt 02/09 06:14 Order name: IV Saline Lock; Complete Time: 07:04 rt 02/09 06:14 Order name: Labs collected and sent; Complete Time: 07:04 rt 02/09 06:14 Order name: O2 Per Protocol; Complete Time: 07:04 rt 02/09 06:14 Order name: O2 Sat Monitoring; Complete Time: 07:04 rt 02/09 06:14 Order name: Urine Dipstick-Ancillary (obtain specimen); Complete Time: 07:13 rt 02/09 06:14 Order name: Urine Test (obtain specimen); Complete Time: 07:13 rt 02/09 06:46 Order name: Labs - recollect needed: recollect green top; Complete Time: 07:21 eb EC:37 Rate is 58 beats/min. Rhythm is regular, Sinus bradycardia with No ectopy. QRS [place] is rt Normal. NM interval is normal. QRS interval is normal. Clinical impression: NSR w/ Non-specific ST/T Changes. Interpreted by me. Administered Medications: 08:40 Drug: Potassium Effervescent Tablet 25 mEq Route: PO; kc6 Disposition Summary: 02/09/22 08:27 Discharge Ordered Location: Home olayinka Problem: new olayinka Symptoms: have improved olayinka Condition: Stable olayinka Diagnosis - Low back pain olayinka - Strain of muscle, fascia and tendon of lower back olayinka Followup: olayinka - With: Private Physician - When: 2 - 3 days - Reason: Recheck today's complaints, Continuance of care, Re-evaluation by your physician Discharge Instructions: - Discharge Summary Sheet olayinka - Chronic Back Pain olayinka - Musculoskeletal Pain olayinka - Chronic Back Pain, [id number] olayinka Forms: - Medication Reconciliation Form olayinka - Thank You Letter olayinka - Antibiotic Education olayinka - Prescription Opioid Use olayinka Prescriptions: - Motrin IB 200 mg Oral Tablet - take 2 tablet by ORAL route every 6 hours As needed as needed with food; 30 olayinka tablet; Refills: 0, Product Selection Permitted - Cyclobenzaprine 5 mg Oral Tablet - take 1 tablet by ORAL route 3 times per day As needed; 15 tablet; Refills: 0, olayinka Product Selection Permitted Signatures: Dispatcher [employer] Shahbaz Saucedo MD MD cha Botello, Elizabeth eb Calcote, Vanessa, RN RN vc1 Usha Marlow, REGISTERED NURSE REGISTERED NURSE jh7 Willow Dao RN RN kc6 Juve Mabry MD MD rt
--- NOTE | 2022-02-09 08:28 | ER ---
Nurse's Notes [facility] Name: Roxana Sanchez Age: 46 yrs Sex: Female : 1975 Arrival Date: 02/09/2022 Time: 05:28 Bed 16 Private MD: Diagnosis: Low back pain;Strain of muscle, fascia and tendon of lower back Presentation: 02/09 05:29 Chief complaint: EMS states: She states she woke up an hour ago ""peeing and Shiting". vc1 05:29 Method Of Arrival: EMS: [facility] vc1 05:59 Chief complaint: Patient states: "I went to the [facility] yesterday and she prescribed me vc1 estrogen and now I keep on peeing and pooping. I've also had chest pain since I've been here. Coronavirus screen: Vaccine status: Patient reports being unvaccinated. Ebola Screen: No symptoms or risks identified at this time. Risk Assessment: Do you want to hurt yourself or someone else? Patient reports no desire to harm self or others. Onset of symptoms was February 09, 2022. 05:59 Acuity: DELMI 4 vc1 09:06 Initial Sepsis Screen: Does the patient meet any 2 criteria? No. Patient's initial kc6 sepsis screen is negative. Does the patient have a suspected source of infection? No. Patient's initial sepsis screen is negative. 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 - Social history:: Smoking status: Patient denies any tobacco usage or history of. - Family history:: not pertinent. Screenin:02 Abuse screen: Denies threats or abuse. Denies injuries from another. Nutritional aa9 screening: No deficits noted. Tuberculosis screening: No symptoms or risk factors identified. Fall Risk None identified. Assessment: 06:01 General: Appears uncomfortable, Behavior is cooperative, appropriate for age, anxious. aa9 Pain: Complains of pain in chest Is intermittent. Neuro: Level of Consciousness is awake, alert, obeys commands, Oriented to person, place, time, situation. Cardiovascular: Patient's skin is warm and dry. Respiratory: Airway is patent Respiratory effort is even, unlabored. Respiratory: Reports shortness of breath at rest Respiratory pattern is hyperventilation Denies pain with respiration, pain with cough, pain with movement. GI: No signs and/or symptoms were reported involving the gastrointestinal system. : No signs and/or symptoms were reported regarding the genitourinary system. EENT: No signs and/or symptoms were reported regarding the EENT system. Derm: Skin is intact, is healthy with good turgor. 07:13 Reassessment: Patient appears in no apparent distress at this time. No changes from kc6 previously documented assessment. Patient and/or family updated on plan of care and expected duration. Pain level reassessed. Patient is alert, oriented x 3, equal unlabored respirations, skin warm/dry/pink. Patient denies pain at this time. 08:13 Reassessment: Patient appears in no apparent distress at this time. No changes from kc6 previously documented assessment. Patient and/or family updated on plan of care and expected duration. Pain level reassessed. Patient is alert, oriented x 3, equal unlabored respirations, skin warm/dry/pink. Patient denies pain at this time. Vital Signs: 05:59 Weight 89.36 kg; Height 5 ft. 4 in. (162.56 cm); vc1 06:00 BP 125 / 82; Pulse 65; Resp 20 S; Temp 98(O); Pulse Ox 100% on R/A; Pain 0/10; aa9 07:14 BP 123 / 87; Pulse 59; Resp 15 S; Pulse Ox 100% on R/A; Pain 0/10; kc6 08:40 BP 137 / 98; Pulse 66; Resp 16 S; Pulse Ox 100% on R/A; Pain 0/10; kc6 05:59 Body Mass Index 33.81 (89.36 kg, 162.56 cm) vc1 ED Course: 05:28 Patient arrived in ED. vc1 06:00 Alycia Randolph, RN is Primary Nurse. aa9 06:02 Triage completed. vc1 06:02 Patient has correct armband on for positive identification. Bed in low position. Call aa9 light in reach. Client placed on continuous cardiac and pulse oximetry monitoring. NIBP monitoring applied. 06:05 Arm band placed on right wrist. vc1 06:07 Juve Mabry MD is Attending Physician. rt 06:40 Inserted saline lock: 20 gauge in right antecubital area, using aseptic technique. aa9 Blood collected. 06:53 XRAY Chest (1 view) In Process Unspecified. EDMS 07:04 Basic Metabolic Panel Sent. aa9 07:04 Troponin HS Sent. aa9 07:13 Urine Microscopic Only Sent. ll1 07:18 Attending Physician role handed off by Juve Mabry MD olayinka 07:18 Shahbaz Corado MD is Attending Physician. olayinka 08:17 Assisted to bathroom. kc6 09:06 No provider procedures requiring assistance completed. IV discontinued, intact, kc6 bleeding controlled, No redness/swelling at site. Pressure dressing applied. Administered Medications: 08:40 Drug: Potassium Effervescent Tablet 25 mEq Route: PO; kc6 Medication: 06:04 VIS not applicable for this client. vc1 Outcome: 08:27 Discharge ordered by . olayinka 09:06 Discharged to home ambulatory. kc6 09:06 Condition: stable 09:06 Discharge instructions given to patient, Instructed on discharge instructions, follow up and referral plans. medication usage, Demonstrated understanding of instructions, follow-up care, medications, Prescriptions given X 2. 09:06 Patient left the ED. kc6 Signatures: Dispatcher [employer] EDWY Shahbaz Corado MD MD cha Lewis, Lynsay, RN RN ll1 Nanci Valderrama RN RN vc1 Alycia Randolph RN RN aa9 Campbell, Kaitlyn, RN RN kc6 Juve Mabry MD MD rt
--- NOTE | 2022-02-09 09:19 | RAD REPORT ---
EXAM DESCRIPTION: RAD - Chest Single View - 02/09/2022 6:52 am CLINICAL HISTORY: CHEST PAIN Chest pain. COMPARISON: Chest Single View dated 02/05/2022; Chest Single View dated 10/07/2021; Chest Single View dated 10/02/2021; Chest Single View dated 09/29/2021 FINDINGS: Portable technique limits examination quality. The lungs are underinflated resulting in mild vascular crowding. The heart is normal in size. No disp laced fractures. IMPRESSION: No acute intrathoracic process suspected.
[2022-02-09 09:30] VITALS: TEMP 98; O2SAT 100
[2022-02-09 09:33] VITALS: BP 137/98
--- NOTE | 2022-02-11 19:19 | EKG ---
Test Date: 2022-02-09 Test Time: 06:24:38 Certified Medication Aide: NATTY MEASUREMENT RESULTS: Intervals: Rate: 58 AK: 204 QRSD: 92 QT: 444 QTc: 435 [place]: P: 31 AK: 204 QRS: -25 T: 43 INTERPRETIVE STATEMENTS: Sinus bradycardia Nonspecific ST and T wave abnormality Abnormal ECG Compared to ECG 02/09/2022 06:24:12 Sinus rhythm no longer present ST (T wave) deviation still present Electronically Signed On 02-11-22 19:11:09 INTERNAL SALES by Fernando Varghese
== END 2022-02-09 09:06 | disposition home or self-care (01) ==
LOC: ER 05:25
DX: S39.012A Strain of muscle, fascia and tendon of lower back, initial encounter (principal); Z88.5 Allergy status to narcotic agent
CPT/HCPCS: 36415; 71045; 80048; 81003; 81015; 81025; 84484; 85025; 93005; 99284

== ENCOUNTER 2023-02-28 20:19 | Emergency (ER) | payer SELFPAY ==
--- NOTE | 2023-02-28 20:31 | ER ---
Nurse's Notes [facility] Name: Roxana Sanchez Age: 47 yrs Sex: Female : 1975 Arrival Date: 02/28/2023 Time: 20:19 Bed Waiting Private MD: Diagnosis: Other specified disorders of teeth and supporting structures Presentation: 02/28 20:24 Chief complaint: Patient states: My left bottom wisdom tooth hurting. I have a dentist vc1 appointment Sunday but I can't wait until then. Coronavirus screen: Vaccine status: Patient reports being unvaccinated. Client denies travel out of the [place] in the last 14 days. At this time, the client does not indicate any symptoms associated with coronavirus-19. Ebola Screen: Patient negative for fever greater than or equal to 101.5 degrees Fahrenheit, and additional compatible Ebola Virus Disease symptoms Patient denies exposure to infectious person. Patient denies travel to an Ebola-affected area in the 21 days before illness onset. No symptoms or risks identified at this time. Initial Sepsis Screen: Does the patient meet any 2 criteria? No. Patient's initial sepsis screen is negative. Does the patient have a suspected source of infection? Yes: Other: tooth infection. Risk Assessment: Do you want to hurt yourself or someone else? Patient reports no desire to harm self or others. Onset of symptoms was February 22, 2023. 20:24 Method Of Arrival: Ambulatory vc1 20:24 Acuity: DELMI 4 vc1 Triage Assessment: 20:27 General: Appears in no apparent distress. uncomfortable, Behavior is calm, cooperative, vc1 appropriate for age. Pain: Complains of pain in left bottom wisdom tooth Pain radiates to anterior aspect of left shoulder Pain currently is 9 out of 10 on a pain scale. Quality of pain is described as sharp, throbbing, Pain began suddenly, week. EENT: Reports pain in left lower wisdom. Neuro: No deficits noted. Cardiovascular: No deficits noted. Respiratory: Airway is patent Respiratory effort is even, unlabored, Respiratory pattern is regular, symmetrical. GI: No deficits noted. No signs and/or symptoms were reported involving the gastrointestinal system. : No deficits noted. No signs and/or symptoms were reported regarding the genitourinary system. Derm: No deficits noted. No signs and/or symptoms reported regarding the dermatologic system. Musculoskeletal: No deficits noted. No signs and/or symptoms reported regarding the musculoskeletal system. 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 Flu vaccine is not up to date. - Social history:: Smoking status: Patient denies any tobacco usage or history of. Screenin:39 [facility] ED Fall Risk Assessment (Adult) History of falling in the last 3 months, vc1 including since admission No falls in past 3 months (0 pts) Confusion or Disorientation No (0 pts) Intoxicated or Sedated No (0 pts) Impaired Gait No (0 pts) Mobility Assist Device Used No (0 pt) Altered Elimination No (0 pt) Score/Fall Risk Level 0 - 2 = Low Risk Oriented to surroundings, Maintained a safe environment, Educated pt \T\ family on fall prevention, incl call for assistance when getting out of bed. Abuse screen: Denies threats or abuse. Nutritional screening: No deficits noted. Tuberculosis screening: No symptoms or risk factors identified. Vital Signs: 20:24 BP 165 / 105; Pulse 72; Resp 15; Temp 97.2; Pulse Ox 100% ; Weight 81.65 kg; Height 5 vc1 ft. 5 in. ; Pain 9/10; 20:24 Body Mass Index 29.95 (81.65 kg, 165.1 cm) vc1 20:24 Pain Scale: Adult vc1 ED Course: 20:21 Patient arrived in ED. [email or web address] 20:22 [facility]eda Alvarez [facility]C [facility]. kb 20:22 Harish Meade MD is Attending Physician. kb 20:27 Triage completed. vc1 20:29 Arm band placed on right wrist. vc1 20:40 No provider procedures requiring assistance completed. Patient did not have IV access vc1 during this emergency room visit. Administered Medications: 20:39 Drug: Acetaminophen-Codeine PO (300 mg-30 mg) 1 tablet PO once; RASS on ADMIN: Combtv4, vc1 Very Agttd3, Agttd2, Rstlss1, AlertClm0, Drwsy-1, Lt Sdtn-2, Mod Sdtn-3, Dp Sdtn-4, UnArsble-5 Route: PO; 20:39 Follow up: Response: Medication administered at discharge. vc1 20:39 Drug: Amoxicillin-Clavulanate PO 875 mg PO once Route: PO; vc1 20:39 Follow up: Response: Medication administered at discharge. vc1 Medication: 20:39 VIS not applicable for this client. vc1 Outcome: 20:30 Discharge ordered by . kb 20:40 Discharged to home ambulatory, with family, vc1 20:40 Condition: good 20:40 Discharge instructions given to patient, Instructed on discharge instructions, follow up and referral plans. medication usage, Demonstrated understanding of instructions, follow-up care, medications, Prescriptions given X 1, 20:40 Patient left the ED. vc1 Signatures: Leda Alvarez, BOTTOM SCRUBBER-C BOTTOM SCRUBBER-Usha Polanco jj6 Nanci Valderrama RN RN vc1
--- NOTE | 2023-02-28 20:31 | EDPHYS ---
Physician Documentation [facility] Name: Roxana Sanchez Age: 47 yrs Sex: Female : 1975 Arrival Date: 02/28/2023 Time: 20:19 Bed Waiting Private MD: ED Physician Harish Meade HPI: 02/28 20:36 This 47 yrs old Black Female presents to ER via Ambulatory with complaints of Toothache.kb 20:36 Patient is a 74-year-old female who presents for toothache that started 1 week ago. kb Denies fever. States she has an appointment with dentist on Sunday but the pain keeps her up at night.. 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 Flu vaccine is not up to date. - Social history:: Smoking status: Patient denies any tobacco usage or history of. ROS: 20:35 Constitutional: Negative for fever, chills, and weight loss, kb 20:35 ENT: Positive for dental pain, 20:35 All other systems are negative, Exam: 20:35 Constitutional: This is a well developed, well nourished patient who is awake, alert, kb and in no acute distress. Head/Face: Normocephalic, atraumatic. Cardiovascular: Regular rate Respiratory: Respirations even and unlabored. No increased work of breathing. Talking in full sentences Skin: Warm, dry with normal turgor. Normal color. MS/ Extremity: Pulses equal, no cyanosis. Neurovascular intact. Full, normal range of motion. Neuro: Awake and alert, GCS 15, oriented to person, place, time, and situation. Moves all extremities. Normal gait. 20:35 ENT: Dental exam: gum swelling, that is mild, specifically in the lower left second molar (#18), pain, that is moderate, specifically in the lower left second molar (#18), Vital Signs: 20:24 BP 165 / 105; Pulse 72; Resp 15; Temp 97.2; Pulse Ox 100% ; Weight 81.65 kg; Height 5 vc1 ft. 5 in. ; Pain 9/10; 20:24 Body Mass Index 29.95 (81.65 kg, 165.1 cm) vc1 20:24 Pain Scale: Adult vc1 MDM: 20:22 Patient medically screened. kb 20:35 Differential diagnosis: dental caries, gingivitis, dental abscess, pericoronitis. Data kb reviewed: vital signs, nurses notes. Counseling: I had a detailed discussion with the patient and/or guardian regarding the historical points, exam findings, and any diagnostic results supporting the discharge/admit diagnosis, the need for outpatient follow up, a dentist, to return to the emergency department if symptoms worsen or persist or if there are any questions or concerns that arise at home. Administered Medications: 20:39 Drug: Acetaminophen-Codeine PO (300 mg-30 mg) 1 tablet PO once; RASS on ADMIN: Combtv4, vc1 Very Agttd3, Agttd2, Rstlss1, AlertClm0, Drwsy-1, Lt Sdtn-2, Mod Sdtn-3, Dp Sdtn-4, UnArsble-5 Route: PO; 20:39 Follow up: Response: Medication administered at discharge. vc1 20:39 Drug: Amoxicillin-Clavulanate PO 875 mg PO once Route: PO; vc1 20:39 Follow up: Response: Medication administered at discharge. vc1 Disposition: 23:46 Co-signature as Attending Physician, Harish Meade MD I agree with the assessment sp4 and plan of care. I reviewed the patient's care provided by the Advanced Practice Provider and agree with the diagnosis and treatment plan. Disposition Summary: 02/28/23 20:30 Discharge Ordered Notes: Location: Home kb Condition: Stable kb Diagnosis - Other specified disorders of teeth and supporting structures kb Followup: kb - With: Emergency Department - When: As needed - Reason: Worsening of condition Followup: kb - With: Private Physician - When: 2 - 3 days - Reason: Recheck today's complaints, Continuance of care, Re-evaluation by your physician Discharge Instructions: - Discharge Summary Sheet kb - Dental Pain, Npan-ur-Riot kb - Dental Abscess, [id number] kb Forms: - Medication Reconciliation Form kb - Thank You Letter kb - Antibiotic Education kb - Prescription Opioid Use kb - Patient Portal Instructions kb - Leadership Thank You Letter kb - Work release form vc1 Prescriptions: - Augmentin 875-125 mg Oral Tablet - take 1 tablet ORAL route every 12 hours for 10 days; 20 tablet; Refills: 0, kb Product Selection Permitted Signatures: Leda Alvarez, Nanci Abarca RN RN vc1 Harish Meade MD MD sp4
[2023-02-28] MEDS ORDERED: AMOX/K CLAV 875 MG TAB ONE (20:51)
[2023-02-28] MEDS ORDERED: CODEINE 30MG/APAP 300MG TAB ONE (20:51)
[2023-02-28 22:02] VITALS: BP 165/105; TEMP 97.2; O2SAT 100
== END 2023-02-28 20:40 | disposition home or self-care (01) ==
LOC: ER 20:19
DX: K08.89 Other specified disorders of teeth and supporting structures (principal)
CPT/HCPCS: 99283

== ENCOUNTER → 2023-04-22 | Emergency (ER) | payer OTHER, SELFPAY ==
[2023-04-22 20:43] LABS: Absolute Lymphocytes (CBC) 1.6 K/uL (0.7-4.9); Hematocrit 36.6 % (36.0-45.0); Lymphocytes % 33.8 % (15.3-44.8); MCV 88.5 fL (80-100); MPV 7.8 fL (7.6-11.3); Platelets 196 thou/uL (152-406); RBC Red Blood Cell Count 4.14 M/uL (3.86-4.86)
[2023-04-22 21:06] LABS: Albumin 3.3 g/dL (3.4-5.0); Bilirubin Total 0.4 mg/dL (0.2-1.0); Potassium 3.6 mEq/L (3.5-5.1); Protein, Total 8.5 g/dL (6.4-8.2)
--- NOTE | 2023-04-22 21:38 | RAD REPORT ---
EXAM DESCRIPTION: CTAbdomen Pelvis W Contrast - 04/22/2023 9:26 pm CLINICAL HISTORY: ABD PAIN COMPARISON: Abdomen Pelvis W Contrast dated 02/06/2022 TECHNIQUE: CT of the abdomen and pelvis was performed. All CT scans are performed using dose optimization technique as appropriate and may include automated exposure control or mA/KV adjustment according to patient size. FINDINGS: Lower chest: No acute abnormality. Liver: No acute abnormality or suspicious lesions. Biliary: No biliary ductal dilatation. Stomach: No significant focal abnormality. Duodenum: No significant focal abnormality. Pancreas: No significant abnormality. Spleen: No significant abnormality. Adrenal: No suspicious lesions. Kidney/ureter: No hydronephrosis. 3 mm stone in the lower pole left kidney. Retroperitoneum: No retroperitoneal adenopathy. Vascular: No aneurysm. Bowel: No significant focal abnormality. Normal appendix. Peritoneum: No ascites or free air. Ventral abdominal wall laxity. Bladder: Grossly unremarkable. Reproductive: No adnexal masses. Bones: No acute fracture. Other: n/a IMPRESSION: No acute intra-abdominal or pelvic finding. Nonobstructive left nephrolithiasis. Normal appendix.
[2023-04-22 22:57] LABS: Calcium Oxalate Crystals- Ur Few /HPF (None Seen); Specific Gravity 1.015 (1.005-1.030); Urine Bacteria <20 /HPF (<20); Urine Bilirubin NEGATIVE (Negative); Urine Blood Negative (Negative); Urine Clarity Extremely Turbid (Clear); Urine Color Light-Yellow (Yellow); Urine Glucose NEGATIVE (Negative); Urine Mucus Slight /HPF (None Seen); Urine Protein TRACE (Negative); Urine RBC <5 /HPF (None Seen); Urine Urobilinogen Normal (Normal); Urine pH 6.5 (5.0-7.0)
--- NOTE | 2023-04-22 23:04 | ER ---
Nurse's Notes [facility] Name: Roxana Sanchez Age: 48 yrs Sex: Female : 1975 Arrival Date: 04/22/2023 Time: 20:00 Bed 5 Private MD: Diagnosis: Calculus of kidney;Lower abdominal pain, unspecified Presentation: 04/22 20:20 Chief complaint: Patient states: abdominal pain with a few episodes of diarrhea that as6 started today. Coronavirus screen: At this time, the client does not indicate any symptoms associated with coronavirus-19. Ebola Screen: No symptoms or risks identified at this time. Initial Sepsis Screen: Does the patient meet any 2 criteria? No. Patient's initial sepsis screen is negative. Does the patient have a suspected source of infection? No. Patient's initial sepsis screen is negative. Risk Assessment: Do you want to hurt yourself or someone else? Patient reports no desire to harm self or others. Onset of symptoms was April 22, 2023. 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 - Social history:: Smoking status: Reported history of juuling and/or vaping. - Family history:: not pertinent. - Hospitalizations: : No recent hospitalization is reported. Screenin:13 [facility] ED Fall Risk Assessment (Adult) History of falling in the last 3 months, ha1 including since admission No falls in past 3 months (0 pts) Confusion or Disorientation No (0 pts) Intoxicated or Sedated No (0 pts) Impaired Gait No (0 pts) Mobility Assist Device Used No (0 pt) Altered Elimination No (0 pt) Score/Fall Risk Level 0 - 2 = Low Risk Oriented to surroundings, Maintained a safe environment, Educated pt \T\ family on fall prevention, incl call for assistance when getting out of bed, Hourly rounding (assess needs \T\ fall precautionary measures) done. Abuse screen: Denies threats or abuse. Denies injuries from another. Nutritional screening: No deficits noted. Tuberculosis screening: No symptoms or risk factors identified. Assessment: 20:13 General: Appears uncomfortable, Behavior is calm, cooperative. Pain: Complains of pain ha1 in abdomen Pain does not radiate. Pain currently is 8 out of 10 on a pain scale. Quality of pain is described as crampy. Neuro: Level of Consciousness is awake, alert, obeys commands, Oriented to person, place, time, situation, Cardiovascular: Capillary refill < 3 seconds Patient's skin is warm and dry. Respiratory: Airway is patent Respiratory effort is even, unlabored, Respiratory pattern is regular, symmetrical. GI: Abdomen is round non-distended, Bowel sounds present X 4 quads. Abd is soft and non tender Reports lower abdominal pain, upper abdominal pain, diarrhea. : No signs and/or symptoms were reported regarding the genitourinary system. Derm: Skin is moist, Skin is normal. Musculoskeletal: Circulation, motion, and sensation intact. Range of motion: intact in all extremities. 21:10 Reassessment: Patient and/or family updated on plan of care and expected duration. Pain ha1 level reassessed. Patient is alert, oriented x 3, equal unlabored respirations, skin warm/dry/pink. 21:42 Reassessment: No changes from previously documented assessment. Patient and/or family vc1 updated on plan of care and expected duration. Pain level reassessed. Patient is alert, oriented x 3, equal unlabored respirations, skin warm/dry/pink. 22:15 Reassessment: Patient and/or family updated on plan of care and expected duration. Pain ha1 level reassessed. Patient is alert, oriented x 3, equal unlabored respirations, skin warm/dry/pink. 23:10 Reassessment: Patient and/or family updated on plan of care and expected duration. Pain ha1 level reassessed. Patient is alert, oriented x 3, equal unlabored respirations, skin warm/dry/pink. Vital Signs: 20:20 BP 129 / 87; Pulse 87; Resp 18 S; Temp 98.1(TE); Pulse Ox 100% on R/A; Weight 81.65 kg as6 (R); Height 5 ft. 5 in. (R); Pain 6/10; 21:00 BP 143 / 89; Pulse 87; Resp 18 S; Pulse Ox 100% on R/A; ha1 21:41 BP 130 / 88; Pulse 74; Resp 18; Pulse Ox 100% ; vc1 22:15 BP 127 / 90; Pulse 67; Resp 17 S; Pulse Ox 100% on R/A; ha1 23:10 BP 124 / 71; Pulse 63; Resp 15 S; Pulse Ox 100% ; ha1 20:20 Body Mass Index 29.95 (81.65 kg, 165.1 cm) as6 20:20 Pain Scale: Adult as6 ED Course: 20:11 Patient arrived in ED. ag3 20:12 Missael Fraser MD is Attending Physician. rn 20:13 Patient has correct armband on for positive identification. Bed in low position. Call ha1 light in reach. Side rails up X 1. 20:22 Triage completed. as6 20:22 Arm band placed on. as6 20:22 Inserted saline lock: 20 gauge in right antecubital area, using aseptic technique. ha1 Blood collected. 20:44 CBC with Diff Sent. ha1 20:44 CMP Sent. ha1 20:44 Lipase Sent. ha1 21:27 CT Abd/Pelvis - IV Contrast Only In Process Unspecified. EDMS 23:31 No provider procedures requiring assistance completed. IV discontinued, intact, ha1 bleeding controlled, No redness/swelling at site. Pressure dressing applied. 23:32 Provided Education on: follow up with PCP. ha1 Administered Medications: No medications were administered Medication: 21:33 VIS not applicable for this client. ha1 Outcome: 23:04 Discharge ordered by . rn 23:31 Discharged to home ambulatory, with family, ha1 23:31 Condition: stable 23:31 Discharge instructions given to patient, family, Instructed on discharge instructions, follow up and referral plans. Demonstrated understanding of instructions, follow-up care, 23:33 Patient left the ED. ha1 Signatures: Dispatcher [employer] EDMS Missael Fraser MD MD rn Gomez, Alice ag3 Carlos Brooks RN RN as6 Nanci Valderrama RN RN vc1 Ave Ibarra RN RN ha1
--- NOTE | 2023-04-22 23:04 | EDPHYS ---
Physician Documentation [facility] Name: Roxana Sanchez Age: 48 yrs Sex: Female : 1975 Arrival Date: 04/22/2023 Time: 20:00 Bed 5 Private MD: ED Physician Missael Fraser HPI: 04/22 20:25 This 48 yrs old Black Female presents to ER via Ambulatory with complaints of Abdominal rn Pain. 20:25 The patient presents with abdominal pain Mid abdomen. Onset: The symptoms/episode rn began/occurred today. The symptoms do not radiate. Associated signs and symptoms: Pertinent positives: diarrhea, Pertinent negatives: nausea and vomiting, blood in stools, fever, shortness of breath. The symptoms are described as crampy, intermittent. Modifying factors: The symptoms are alleviated by nothing, the symptoms are aggravated by nothing. Severity of pain: At its worst the pain was mild in the emergency department the pain is unchanged. The patient has experienced similar episodes in the past. Patient reports mid abdominal pain that is crampy and intermittent. Began today. Associated with 3 episodes of nonbloody diarrhea. No melena. Has had before and does not recall diagnosis. No fever. No chills. No myalgias. No sick contacts. No chest pain or shortness of breath.. 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 - Social history:: Smoking status: Reported history of juuling and/or vaping. - Family history:: not pertinent. - Hospitalizations: : No recent hospitalization is reported. ROS: 20:25 Constitutional: Negative for fever, chills, and weight loss, Eyes: Negative for injury, rn pain, redness, and discharge, Neck: Negative for injury, pain, and swelling, Cardiovascular: Negative for chest pain, palpitations, and edema, Respiratory: Negative for shortness of breath, cough, wheezing, and pleuritic chest pain, Abdomen/GI: Positive for abdominal cramping with diarrhea Back: Negative for injury and pain, MS/Extremity: Negative for injury and deformity, Skin: Negative for injury, rash, and discoloration, Neuro: Negative for headache, weakness, numbness, tingling, and seizure, Exam: 20:25 Constitutional: This is a well developed, well nourished patient who is awake, alert, rn and in no acute distress. Ambulatory to room without difficulty or assistance Head/Face: Normocephalic, atraumatic. ENT: Moist mucous membranes Cardiovascular: Regular rate and rhythm. No pulse deficits. Respiratory: No increased work of breathing, no retractions or nasal flaring. Abdomen/GI: Soft, non-tender Skin: Warm, dry MS/ Extremity: Pulses equal, no cyanosis. Neuro: Awake and alert, GCS 15, oriented to person, place, time, and situation. Cranial nerves II-XII grossly intact. Motor strength 5/5 in all extremities. Sensory grossly intact. Cerebellar exam normal. Normal gait. Vital Signs: 20:20 BP 129 / 87; Pulse 87; Resp 18 S; Temp 98.1(TE); Pulse Ox 100% on R/A; Weight 81.65 kg as6 (R); Height 5 ft. 5 in. (R); Pain 6/10; 21:00 BP 143 / 89; Pulse 87; Resp 18 S; Pulse Ox 100% on R/A; ha1 21:41 BP 130 / 88; Pulse 74; Resp 18; Pulse Ox 100% ; vc1 22:15 BP 127 / 90; Pulse 67; Resp 17 S; Pulse Ox 100% on R/A; ha1 23:10 BP 124 / 71; Pulse 63; Resp 15 S; Pulse Ox 100% ; ha1 20:20 Body Mass Index 29.95 (81.65 kg, 165.1 cm) as6 20:20 Pain Scale: Adult as6 MDM: 20:12 Patient medically screened. rn 23:02 Differential diagnosis: diverticulitis, non-specific abd pain, Ureterolithiasis, rn urinary tract infection. Data reviewed: vital signs, nurses notes, lab test result(s), radiologic studies, CT scan, and as a result, I will discharge patient. Counseling: I had a detailed discussion with the patient and/or guardian regarding the historical points, exam findings, and any diagnostic results supporting the discharge/admit diagnosis, lab results, radiology results, the need for outpatient follow up, to return to the emergency department if symptoms worsen or persist or if there are any questions or concerns that arise at home. Special discussion: Based on the patient's Hx, exam, and Dx evaluation, there is no indication for emergent surgery or inpatient Tx. It is understood by the patient/guardian that if the Sx's persist or worsen they need to return immediately for re-evaluation. I discussed with the patient/guardian in detail that at this point there is no indication for admission to the hospital. It is understood, however, that if the symptoms persist or worsen the patient needs to return immediately for re-evaluation. 04/22 20:20 Order name: CBC with Diff; Complete Time: :44 rn 04/22 20:20 Order name: CMP; Complete Time: :44 rn 04/22 20:20 Order name: Lipase; Complete Time: 44 rn 04/22 20:20 Order name: Urinalysis w/ reflexes; Complete Time: 23:02 rn 04/22 20:20 Order name: CT Abd/Pelvis - IV Contrast Only; Complete Time: :44 rn 04/22 20:20 Order name: IV Saline Lock; Complete Time: :44 rn 04/22 20:20 Order name: Labs collected and sent; Complete Time: :44 rn Administered Medications: No medications were administered Disposition Summary: 04/22/23 23:04 Discharge Ordered Notes: Location: Home rn Problem: new rn Symptoms: have improved rn Condition: Stable rn Diagnosis - Calculus of kidney rn - Lower abdominal pain, unspecified rn Followup: rn - With: Private Physician - When: As needed - Reason: Recheck today's complaints, Re-evaluation by your physician Discharge Instructions: - Discharge Summary Sheet rn - Abdominal Pain, Adult rn - Kidney Stones rn Forms: - Medication Reconciliation Form rn - Thank You Letter rn - Antibiotic rn licensed practical - Prescription Opioid Use rn - Patient Portal Instructions rn - Leadership Thank You Letter rn - Work release form ha1 Signatures: Dispatcher [employer] Missael Feliciano MD MD rn Slawson, Ashby, RN RN as6
[2023-04-23 00:55] VITALS: TEMP 98.1; O2SAT 100
[2023-04-23 01:16] VITALS: BP 124/71
== END ==
LOC: ER 20:00
DX: N20.0 Calculus of kidney (principal); Z88.5 Allergy status to narcotic agent
CPT/HCPCS: 85025; 81001; 36415; 83690; 80053; 74177; Q9967

== ENCOUNTER 2023-07-04 02:34 | Emergency (ER) | payer OTHER, SELFPAY ==
[2023-07-04] MEDS ORDERED: ONDANSETRON 4 MG/2 ML VIAL ONE ×2 (03:02→05:44)
[2023-07-04] MEDS ORDERED: NA CHLORIDE 0.9% 1,000 ML ONE (03:02)
[2023-07-04 04:08] LABS: Absolute Eosinophils 0.2 K/uL (0-0.5); Absolute Lymphocytes (CBC) 2.7 K/uL (0.7-4.9); Absolute Monocytes 0.4 K/uL (0.1-1.3); Absolute Neutrophil 2.7 K/uL (1.8-8.0); Basophils % 0.5 % (0-1.3); Eosinophils % 2.8 % (0-4.4); Hematocrit 36.6 % (36.0-45.0); Hemoglobin 12.3 g/dL (12.0-15.0); Lymphocytes % 45.6 % (15.3-44.8); MCH 29.9 pg (27.0-35.0); MCHC 33.5 g/dL (32.0-36.0); MCV 89.2 fL (80-100); MPV 8.3 fL (7.6-11.3); Monocytes % 6.4 % (3.3-12.3); Neutrophils % 44.7 % (41.7-73.7); Nucleated Red Blood Cells % 0.1 % (0-0); Platelets 211 thou/uL (152-406); RBC Red Blood Cell Count 4.11 M/uL (3.86-4.86); Red Cell Distribution Width 13.9 % (12.1-15.2)
[2023-07-04 04:11] LABS: Albumin 3.2 g/dL (3.4-5.0); Albumin/Globulin Ratio 0.6 (1.1-1.8); Anion Gap 8.4 mEq/L (5.0-15.0); Bilirubin Total 0.3 mg/dL (0.2-1.0); Globulin 5.3 g/dL (2.3-3.5); Potassium 3.4 mEq/L (3.5-5.1); Protein, Total 8.5 g/dL (6.4-8.2)
[2023-07-04 04:15] LABS: Barbiturates NEGATIVE (NEGATIVE); Benzodiazepines NEGATIVE (NEGATIVE); Cocaine NEGATIVE (NEGATIVE); METHAMPHETAM NEGATIVE (NEGATIVE); Methadone NEGATIVE (NEGATIVE); Opiates NEGATIVE (NEGATIVE); Phencyclidine NEGATIVE (NEGATIVE); THC Cannibis POSITIVE (NEGATIVE)
[2023-07-04] MEDS ORDERED: METOCLOPRAMIDE 10 MG/2mL INJ ONE (05:44)
[2023-07-04] MEDS ORDERED: DIPHENHYDRAMINE 50 MG/ML VIAL ONE (05:44)
--- NOTE | 2023-07-04 06:38 | EDPHYS ---
Physician Documentation [facility] Name: Roxana Sanchez Age: 48 yrs Sex: Female : 1975 Arrival Date: 07/04/2023 Time: 02:34 Bed 8 Private MD: ED Physician Harish Meade HPI: 07/03 02:38 This 48 yrs old Black Female presents to ER via Unassigned with complaints of Doesn't sp4 Feel Right. 06:33 48 -year-old female presents with EMS with complaint of not feeling well after sp4 consumption of chocolate that contained cannabis,. 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 Flu vaccine is not up to date. - Infectious Disease History:: Denies. - Social history:: Smoking status: Patient denies any tobacco usage or history of. Patient uses alcohol, on a daily basis. street drugs, marijuana. - Family history:: not pertinent. ROS: 06:33 Constitutional: Negative for fever, chills, and weight loss, positive for feeling sp4 unwell, positive for dizziness 06:33 All other systems are negative, Exam: 06:33 Constitutional: This is a well developed, well nourished patient who is awake, alert, sp4 and in no acute distress. Head/Face: Normocephalic, atraumatic. Eyes: Pupils equal round and reactive to light, extra-ocular motions intact. Lids and lashes normal. Conjunctiva and sclera are not injected. Cornea within normal limits. Periorbital areas with no swelling, redness, or edema. ENT: Nares patent. No nasal discharge, no septal abnormalities noted. Tympanic membranes are normal and external auditory canals are clear. Oropharynx with no redness, swelling, or masses, exudates, or evidence of obstruction, uvula midline. Mucous membranes moist. Neck: Trachea midline, no thyromegaly or masses palpated, and no cervical lymphadenopathy. Supple, full range of motion without nuchal rigidity, or vertebral point tenderness. Chest/axilla: Normal chest wall appearance and motion. Nontender with no deformity. No lesions are appreciated. Cardiovascular: Regular rate and rhythm with a normal S1 and S2. No gallops, murmurs, or rubs. Normal PMI, no JVD. No pulse deficits. Respiratory: Lungs have equal breath sounds bilaterally, clear to auscultation and percussion. No rales, rhonchi or wheezes noted. No increased work of breathing, no retractions or nasal flaring. Abdomen/GI: Soft, with normal bowel sounds. No distension or tympany. No guarding or rebound. No evidence of tenderness throughout. Back: No spinal tenderness. No costovertebral tenderness. Skin: Warm, dry with normal turgor. Normal color with no rashes, no lesions, and no evidence of cellulitis. MS/ Extremity: Pulses equal, no cyanosis. Neurovascular intact. Full, normal range of motion. Neuro: Awake and alert, GCS 15, oriented to person, place, time, and situation. Cranial nerves II-XII grossly intact. Motor strength 5/5 in all extremities. Sensory grossly intact. Psych: Awake, alert, with orientation to person, place and time. Behavior, mood, and affect are within normal limits Vital Signs: 02:37 BP 155 / 96; Pulse 74; Resp 20 S; Temp 98.4(O); Pulse Ox 98% on R/A; Weight 84.82 kg; 7 Height 5 ft. 6 in. ; Pain 0/10; 03:30 BP 147 / 95; Pulse 57; Resp 18 S; Pulse Ox 98% on R/A; jw7 05:00 BP 148 / 98; Pulse 60; Resp 18; Pulse Ox 100% ; vc1 02:37 Body Mass Index 30.18 (84.82 kg, 167.64 cm) [facility] 02:37 Pain Scale: Adult [facility] Eric Coma Score: 06:33 Eye Response: spontaneous(4). Motor Response: obeys commands(6). Verbal Response: sp4 oriented(5). Total: 15. MDM: 02:47 Patient medically screened. sp4 06:33 Differential Diagnosis altered mental status, sepsis, flu, Cannabis intoxication. Data sp4 reviewed: vital signs, nurses notes, lab test result(s), electrolytes, urine drug screen. Consideration of Admission/Observation Escalation of care including admission/observation considered. ED course: Patient feels improved after management in the ER. Patient stable for discharge home. 07/03 02:42 Order name: CBC with Diff; Complete Time: 05:42 sp4 07/03 02:42 Order name: CMP; Complete Time: 05:42 sp4 07/03 02:42 Order name: Alcohol Level; Complete Time: 05:42 sp4 07/03 02:42 Order name: Urine Drug Screen; Complete Time: 05:42 sp4 07/03 02:42 Order name: IV Saline Lock; Complete Time: 03:21 sp4 07/03 02:42 Order name: Labs collected and sent; Complete Time: 03:22 sp4 Administered Medications: 03:40 Drug: NS 0.9% IV 1000 ml IV at 1 bolus Per protocol; 1000 mL bolus Route: IV; Rate: 1 jw7 bolus; Site: right antecubital; 03:40 Drug: Ondansetron IVP 4 mg IVP once; over 2 minutes Route: IVP; Site: right antecubital;jw7 05:52 Drug: Ondansetron IVP 4 mg IVP once; over 2 minutes Route: IVP; Site: right antecubital;cm10 05:52 Drug: metoCLOPramide IVP 10 mg IVP once; over 1 to 2 minutes Route: IVP; Site: right cm10 antecubital; 05:52 Drug: diphenhydrAMINE IVP 25 mg IVP once Route: IVP; Site: right antecubital; cm10 07:36 Drug: Diazepam PO 5 mg PO once Route: PO; ph Disposition Summary: 07/04/23 06:37 Discharge Ordered Problem: new sp4 Symptoms: have improved sp4 Condition: Stable sp4 Diagnosis - Anxiety disorder, unspecified sp4 - Cannabis intoxication, anxiety attack, nausea vomiting sp4 Followup: sp4 - With: Private Physician - When: 7 - 10 days - Reason: Recheck today's complaints Discharge Instructions: - Discharge Summary Sheet sp4 - Cannabis Use Disorder sp4 Forms: - Work release form ll1 - Patient Portal Instructions sp4 Prescriptions: - Valium 5 mg Oral tablet - take 1 tablet ORAL route once daily As needed PRN anxiety; 20 tablet; Refills: sp4 0, Product Selection Permitted - promethazine 25 mg Oral tablet - take 1 tablet ORAL route every 6 hours As needed PRN nausea; 20 tablet; sp4 Refills: 0, Product Selection Permitted Signatures: Dispatcher [employer] Lolita Read, RN RN ph Sonal Cuenca RN RN jw7 Harish Meade MD MD sp4 Talisha Juárez RN RN cm10
--- NOTE | 2023-07-04 06:38 | ER ---
Nurse's Notes [facility] Name: Roxana Sanchez Age: 48 yrs Sex: Female : 1975 Arrival Date: 07/04/2023 Time: 02:34 Bed 8 Private MD: Diagnosis: Anxiety disorder, unspecified;Cannabis intoxication, anxiety attack, nausea vomiting Presentation: 07/03 02:37 Chief complaint: Patient states: "I feel weird, like my head isn't all here". jw7 Coronavirus screen: At this time, the client does not indicate any symptoms associated with coronavirus-19. Ebola Screen: No symptoms or risks identified at this time. Initial Sepsis Screen: Does the patient meet any 2 criteria? No. Patient's initial sepsis screen is negative. Does the patient have a suspected source of infection? No. Patient's initial sepsis screen is negative. Risk Assessment: Do you want to hurt yourself or someone else? Patient reports no desire to harm self or others. Onset of symptoms was July 04, 2023. 02:37 Method Of Arrival: EMS: [facility] jw7 02:37 Acuity: DELMI 4 jw7 04:00 Acuity: DELMI 3 cm10 Triage Assessment: 02:40 General: Appears in no apparent distress. comfortable, Behavior is calm, cooperative, jw7 anxious. Pain: Denies pain. EENT: No deficits noted. No signs and/or symptoms were reported regarding the EENT system. Neuro: Level of Consciousness is awake, alert, obeys commands, Oriented to person, place, time, situation. Cardiovascular: Heart tones S1 S2 present Capillary refill < 3 seconds Clubbing of nail beds is absent JVD is absent Patient's skin is warm and dry. Respiratory: Airway is patent Trachea midline Respiratory effort is even, unlabored, Respiratory pattern is regular, symmetrical, Breath sounds are clear bilaterally. GI: Abdomen is round non-distended, Bowel sounds present X 4 quads. Abd is soft and non tender X 4 quads. : No deficits noted. No signs and/or symptoms were reported regarding the genitourinary system. Derm: Skin is intact, is healthy with good turgor, Skin is dry, Skin is normal, Skin temperature is warm. Musculoskeletal: Circulation, motion, and sensation intact. Range of motion: intact in all extremities. 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 Flu vaccine is not up to date. - Infectious Disease History:: Denies. - Social history:: Smoking status: Patient denies any tobacco usage or history of. Patient uses alcohol, on a daily basis. street drugs, marijuana. - Family history:: not pertinent. Screenin:46 [facility] ED Fall Risk Assessment (Adult) History of falling in the last 3 months, jw7 including since admission No falls in past 3 months (0 pts) Confusion or Disorientation No (0 pts) Intoxicated or Sedated No (0 pts) Impaired Gait No (0 pts) Mobility Assist Device Used No (0 pt) Altered Elimination No (0 pt) Score/Fall Risk Level 0 - 2 = Low Risk Oriented to surroundings, Maintained a safe environment, Educated pt \\T\\ family on fall prevention, incl call for assistance when getting out of bed. Abuse screen: Denies threats or abuse. Denies injuries from another. Nutritional screening: No deficits noted. Tuberculosis screening: No symptoms or risk factors identified. Assessment: 02:47 General: See Triage Assessment. jw7 03:40 Reassessment: Patient appears in no apparent distress at this time. No changes from jw7 previously documented assessment. Patient and/or family updated on plan of care and expected duration. Pain level reassessed. Patient is alert, oriented x 3, equal unlabored respirations, skin warm/dry/pink. 05:12 Reassessment: No changes from previously documented assessment. Patient and/or family vc1 updated on plan of care and expected duration. Pain level reassessed. Patient is alert, oriented x 3, equal unlabored respirations, skin warm/dry/pink. 05:12 General: Pt ambulating to bathroom with family. vc1 Vital Signs: 02:37 BP 155 / 96; Pulse 74; Resp 20 S; Temp 98.4(O); Pulse Ox 98% on R/A; Weight 84.82 kg; jw7 Height 5 ft. 6 in. ; Pain 0/10; 03:30 BP 147 / 95; Pulse 57; Resp 18 S; Pulse Ox 98% on R/A; jw7 05:00 BP 148 / 98; Pulse 60; Resp 18; Pulse Ox 100% ; vc1 02:37 Body Mass Index 30.18 (84.82 kg, 167.64 cm) jw7 02:37 Pain Scale: Adult jw7 Eric Coma Score: 06:33 Eye Response: spontaneous(4). Motor Response: obeys commands(6). Verbal Response: sp4 oriented(5). Total: 15. ED Course: 02:34 Patient arrived in ED. jj6 02:37 Harish Meade MD is Attending Physician. sp4 02:40 Triage completed. jw7 02:40 Arm band placed on. jw7 02:46 Patient has correct armband on for positive identification. Bed in low position. Call jw7 light in reach. Side rails up X2. Provided Education on: Use of Call Light. 03:20 Inserted saline lock: 22 gauge in right antecubital area, using aseptic technique. vk 03:21 Initial lab(s) drawn, by me, sent to lab. Urine collected: clean catch specimen, clear. vk 03:21 CBC with Diff Sent. vk 03:22 CMP Sent. vk 03:22 Urine Drug Screen Sent. vk 03:22 Alcohol Level Sent. vk 04:51 Warm blanket given. Pillow given. vk 04:52 Assisted to bathroom. vk 07:15 Lolita Diggs, RN is Primary Nurse. ph Administered Medications: 03:40 Drug: NS 0.9% IV 1000 ml IV at 1 bolus Per protocol; 1000 mL bolus Route: IV; Rate: 1 jw7 bolus; Site: right antecubital; 03:40 Drug: Ondansetron IVP 4 mg IVP once; over 2 minutes Route: IVP; Site: right antecubital;jw7 05:52 Drug: Ondansetron IVP 4 mg IVP once; over 2 minutes Route: IVP; Site: right antecubital;cm10 05:52 Drug: metoCLOPramide IVP 10 mg IVP once; over 1 to 2 minutes Route: IVP; Site: right cm10 antecubital; 05:52 Drug: diphenhydrAMINE IVP 25 mg IVP once Route: IVP; Site: right antecubital; cm10 07:36 Drug: Diazepam PO 5 mg PO once Route: PO; ph Outcome: 06:37 Discharge ordered by . monica 07:38 Patient left the ED. ph Signatures: Lolita Diggs RN RN ph Usah Reyesj6 Nanci Valderrama RN RN vc1 Sonal Cuenca RN RN jw7 Harish Meade MD MD sp4 Talisha Juárez RN RN cm10 Kim Shirley
[2023-07-04] MEDS ORDERED: DIAZEPAM 5 MG TABLET ONE (07:22)
[2023-07-04 08:54] VITALS: BP 148/98; TEMP 98.4; O2SAT 100
== END 2023-07-04 07:38 | disposition home or self-care (01) ==
LOC: ER 02:34
DX: F12.929 Cannabis use, unspecified with intoxication, unspecified (principal); F41.0 Panic disorder [episodic paroxysmal anxiety]; F41.9 Anxiety disorder, unspecified
CPT/HCPCS: 36415; 80053; 80307; 82077; 85025; J1200; J2405; J2765; J7030

== ENCOUNTER 2024-02-27 00:25 | Emergency (ER) | payer OTHER ==
[2024-02-27] MEDS ORDERED: ONDANSETRON 4 MG/2 ML VIAL ONE (00:54)
[2024-02-27] MEDS ORDERED: NA CHLORIDE 0.9% 1,000 ML ONE (00:54)
[2024-02-27 01:11] LABS: Hemoglobin 12.3 g/dL (12.0-15.0); MCH 29.8 pg (27.0-35.0); Nucleated Red Blood Cells % 0.2 % (0-0)
[2024-02-27 01:14] LABS: Absolute Eosinophils 0.1 K/uL (0-0.5); Absolute Lymphocytes (CBC) 2.3 K/uL (0.7-4.9); Absolute Monocytes 0.5 K/uL (0.1-1.3); Absolute Neutrophil 3.8 K/uL (1.8-8.0); Basophils % 0.4 % (0-1.3); Hematocrit 36.7 % (36.0-45.0); Lymphocytes % 34.2 % (15.3-44.8); MCHC 33.6 g/dL (32.0-36.0); MCV 88.6 fL (80-100); MPV 8.1 fL (7.6-11.3); Monocytes % 6.8 % (3.3-12.3); Neutrophils % 56.6 % (41.7-73.7); Platelets 202 thou/uL (152-406); RBC Red Blood Cell Count 4.14 M/uL (3.86-4.86); Red Cell Distribution Width 13.9 % (12.1-15.2)
[2024-02-27 01:20] LABS: Albumin 3.3 g/dL (3.4-5.0); Albumin/Globulin Ratio 0.6 (1.1-1.8); Anion Gap 9.8 mEq/L (5.0-15.0); Bilirubin Total 0.3 mg/dL (0.2-1.0); Globulin 5.9 g/dL (2.3-3.5); Potassium 3.8 mEq/L (3.5-5.1); Protein, Total 9.2 g/dL (6.4-8.2)
[2024-02-27 01:22] LABS: Specific Gravity 1.012 (1.005-1.030)
[2024-02-27 01:50] LABS: Specific Gravity 1.012 (1.005-1.030); Sqamous Epithelial <5 /HPF (None Seen); Urine Bacteria <20 /HPF (<20); Urine Bilirubin NEGATIVE (Negative); Urine Blood Negative (Negative); Urine Clarity Extremely Turbid (Clear); Urine Color Light-Yellow (Yellow); Urine Culture Reflex Order NOT NEEDED; Urine Glucose NEGATIVE (Negative); Urine Ketones NEGATIVE (Negative); Urine Microscopic Reflex YN ORDER UMIC; Urine Mucus Slight /HPF (None Seen); Urine Nitrite NEGATIVE (Negative); Urine Protein NEGATIVE (Negative); Urine RBC None Seen /HPF (None Seen); Urine Urobilinogen Normal (Normal); Urine WBC <5 /HPF (<5)
[2024-02-27] MEDS ORDERED: DICYCLOMINE HCL 10 MG CAP ONE (01:51)
[2024-02-27] MEDS ORDERED: METOCLOPRAMIDE 5 MG TAB ONE (01:52)
[2024-02-27] MEDS ORDERED: PROMETHAZINE 25 MG TABLET ONE (01:52)
[2024-02-27] MEDS ORDERED: KETOROLAC 30 MG/ML INJ ONE (01:52)
[2024-02-27] MEDS ORDERED: FAMOTIDINE 20 MG TAB ONE (01:52)
[2024-02-27] MEDS ORDERED: MAGNES/ALUMIN/SIMET 30ML UCUP ONE (03:49)
[2024-02-27] MEDS ORDERED: LIDOCAINE VISCOUS 2% 10ML ORAL SOLN ONE (03:50)
--- NOTE | 2024-02-27 06:16 | RAD REPORT ---
EXAM DESCRIPTION: Abdomen Pelvis W Contrast RadLex: CT ABDOMEN PELVIS WITH IV CONTRAST CLINICAL HISTORY: 48 years Female; ABD PAIN; IV ONLY Bed Name: 5 TECHNIQUE: CT of the abdomen and pelvis [with] intravenous contrast. All CT scans at this facility use dose modulation, iterative reconstruction, and/or weight based dosi ng when appropriate to reduce radiation dose to as low as reasonably achievable. COMPARISON: CT abdomen pelvis 04/22/2023 FINDINGS: Lower thorax: Lung bases are clear Abdomen: Stomach: Within normal limits Liver: No focal lesions. No intrahepatic ductal distention. Gallbladder: Nondistended Pancreas: Within normal limits Spleen: Within normal limits Right kidney: No hydronephrosis. No focal lesion. Left kidney: No hydronephrosis. 2 mm renal stone. Adrenal glands: Within normal limits Vascular structures: Within normal limits Nodes: No lymphadenopathy by size criteria Pelvis: Small bowel: No significant distention. Appendix: Within normal limits Colon: No distention or acute pericolonic edema. Moderate stool burden. Peritoneum: No free intraperitoneal fluid or air. Bones: No acute bone findings. Bladder: Mild diffuse wall thickening. Reproductive organs: No acute findings. IMPRESSION: 1. Mild diffuse bladder wall thickening, can be seen in setting of cystitis. Correlate with urinaly sis. 2. Left-sided nephrolithiasis. No hydronephrosis. 3. Moderate stool burden. Electronically signed by: Chandni Ramires MD 02/27/2024 06:05 AM [facility] Z9 Due to temporary technical issues with the PACS/Nokori reporting system, reports are being cesar d by the in-house radiologist without review as a courtesy to ensure prompt reporting the interpreting radiologist is fully responsible for the content of the report. Transcribed Date/Time: 02/27/2024 6:16 AM
--- NOTE | 2024-02-27 06:27 | EDPHYS ---
Physician Documentation [facility] Name: Roxana Sanchez Age: 48 yrs Sex: Female : 1975 Arrival Date: 02/27/2024 Time: 00:25 Bed 5 Private MD: ED Physician Harish Meade HPI: 02/26 00:32 This 48 yrs old Black Female presents to ER via Unassigned with complaints of sp4 Epigastric Pain. 04:49 48-year-old female presents with complaint of upper abdominal epigastric pain.. 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 Flu vaccine is up to date. - Infectious Disease History:: Denies. - Social history:: Smoking status: Patient denies any tobacco usage or history of. - Family history:: not pertinent. ROS: 04:49 Constitutional: Negative for fever, chills, and weight loss, positive epigastric pain sp4 04:49 All other systems are negative, Exam: 04:48 Constitutional: This is a well developed, well nourished patient who is awake, alert, sp4 and in no acute distress. Head/Face: Normocephalic, atraumatic. Eyes: Pupils equal round and reactive to light, extra-ocular motions intact. Lids and lashes normal. Conjunctiva and sclera are not injected. Cornea within normal limits. Periorbital areas with no swelling, redness, or edema. ENT: Nares patent. No nasal discharge, no septal abnormalities noted. Tympanic membranes are normal and external auditory canals are clear. Oropharynx with no redness, swelling, or masses, exudates, or evidence of obstruction, uvula midline. Mucous membranes moist. Neck: Trachea midline, no thyromegaly or masses palpated, and no cervical lymphadenopathy. Supple, full range of motion without nuchal rigidity, or vertebral point tenderness. Chest/axilla: Normal chest wall appearance and motion. Nontender with no deformity. No lesions are appreciated. Cardiovascular: Regular rate and rhythm with a normal S1 and S2. No gallops, murmurs, or rubs. Normal PMI, no JVD. No pulse deficits. Respiratory: Lungs have equal breath sounds bilaterally, clear to auscultation and percussion. No rales, rhonchi or wheezes noted. No increased work of breathing, no retractions or nasal flaring. Abdomen/GI: Soft, with normal bowel sounds. No distension or tympany. No guarding or rebound. No evidence of tenderness throughout. Back: No spinal tenderness. No costovertebral tenderness. Skin: Warm, dry with normal turgor. Normal color with no rashes, no lesions, and no evidence of cellulitis. MS/ Extremity: Pulses equal, no cyanosis. Neurovascular intact. Full, normal range of motion. Neuro: Awake and alert, GCS 15, oriented to person, place, time, and situation. Cranial nerves II-XII grossly intact. Motor strength 5/5 in all extremities. Sensory grossly intact. Psych: Awake, alert, with orientation to person, place and time. Behavior, mood, and affect are within normal limits 04:48 ECG was reviewed by the Attending Physician. EKG at 0042 normal sinus rhythm normal EKG rate 73 Vital Signs: 00:34 BP 154 / 103; Pulse 68; Resp 15; Temp 98.3; Pulse Ox 99% ; Weight 90.72 kg; Height 5 vc1 ft. 5 in. ; Pain 5/10; 02:37 BP 137 / 77; Pulse 60; Resp 16; Temp 98.5; Pulse Ox 100% on R/A; ty 06:48 BP 127 / 71; Pulse 65; Resp 17 S; Pulse Ox 100% on R/A; lg3 00:34 Body Mass Index 33.28 (90.72 kg, 165.1 cm) vc1 00:34 Pain Scale: Adult vc1 Eric Coma Score: 04:48 Eye Response: spontaneous(4). Motor Response: obeys commands(6). Verbal Response: sp4 oriented(5). Total: 15. MDM: 00:33 Medical Screening Exam initiated sp4 04:49 Differential diagnosis: cholecystitis, Cholelithiasis, diverticulitis, Dysmenorrhea. sp4 Data reviewed: vital signs, nurses notes, lab test result(s), EKG, radiologic studies. Consideration of Admission/Observation Escalation of care including admission/observation considered. ED course: Awaiting on CT report.. 12 00:32 Order name: CBC with Diff; Complete Time: 01:43 sp4 12 00:32 Order name: CMP; Complete Time: :43 sp4 02/26 00:32 Order name: Lipase; Complete Time: :43 sp4 02/26 00:32 Order name: Test, Urine; Complete Time: :43 sp4 12 00:32 Order name: Urinalysis w/ reflexes; Complete Time: 04:48 sp4 02/26 03:45 Order name: CT Abd/Pelvis - IV Contrast Only; Complete Time: 06:21 sp4 02/26 00:32 Order name: IV Saline Lock; Complete Time: 00:51 sp4 02/26 00:33 Order name: Labs collected and sent; Complete Time: 00:51 sp4 EC:48 Rate is 73 beats/min. Rhythm is regular, Normal Sinus Rhythm. QRS [place] is Normal. [place] sp4 interval is normal. QRS interval is normal. QT interval is normal. No Q waves. T waves are Normal. No ST changes noted. Clinical impression: No evidence of ischemia. Interpreted by me. Reviewed by me. Administered Medications: 01:02 Drug: Ondansetron IVP 4 mg IVP once; over 2 minutes Route: IVP; Site: right forearm; vc1 02:38 Follow up: Response: No adverse reaction; Marked relief of symptoms vc1 01:02 Drug: NS 0.9% IV 1000 ml IV at 1 bolus Per protocol; to be given as a bolus over 60 vc1 minutes Route: IV; Rate: 1 bolus; Site: right forearm; 02:38 Follow up: IV Status: Completed infusion; IV Intake: 1000ml vc1 02:00 Drug: Famotidine PO 40 mg PO once Route: PO; bm8 02:37 Follow up: Response: No adverse reaction; Marked relief of symptoms vc1 02:00 Drug: Dicyclomine PO 20 mg PO once Route: PO; bm8 02:38 Follow up: Response: No adverse reaction; Marked relief of symptoms vc1 02:00 Drug: Promethazine PO 25 mg PO once Route: PO; bm8 02:38 Follow up: Response: No adverse reaction; Marked relief of symptoms vc1 02:00 Drug: Ketorolac IVP 30 mg IVP once Route: IVP; Site: right antecubital; bm8 02:38 Follow up: Response: No adverse reaction; Marked relief of symptoms vc1 02:00 Drug: MetoCLOPramide PO 10 mg PO once Route: PO; bm8 02:39 Follow up: Response: No adverse reaction; Marked relief of symptoms vc1 04:01 Drug: GI Cocktail without - (Maalox PO 30 ml, Lidocaine Mucous Membrane 2 % 15 vc1 ml) PO once Route: PO; 06:51 Follow up: Response: No adverse reaction; Marked relief of symptoms lg3 Disposition Summary: 02/27/24 06:26 Discharge Ordered Notes: Location: Home sp4 Problem: new sp4 Symptoms: have improved sp4 Condition: Stable sp4 Diagnosis - Epigastric pain sp4 - Acute gastritis sp4 Followup: sp4 - With: Private Physician - When: 7 - 10 days - Reason: Recheck today's complaints Discharge Instructions: - Discharge Summary Sheet sp4 - Gastritis, Adult, [id number] sp4 Forms: - Patient Portal Instructions sp4 Prescriptions: - Pepcid 20 mg Oral tablet - take 2 tablet ORAL route once daily for 30 days; 60 tablet; Refills: 0, Product sp4 Selection Permitted Signatures: Dispatcher [employer] EDNanci Ash RN RN vc1 Harish Meade MD MD sp4 Woody Miller RN RN bm8 Radha Ortiz RN lg3 Corrections: (The following items were deleted from the chart) 03:45 03:45 Abdomen Pelvis W Con+CT.RAD.BRZ ordered. EDMS EDMS
--- NOTE | 2024-02-27 06:27 | ER ---
Nurse's Notes [facility] Name: Roxana Sanchez Age: 48 yrs Sex: Female : 1975 Arrival Date: 02/27/2024 Time: 00:25 Bed 5 Private MD: Diagnosis: Epigastric pain;Acute gastritis Presentation: 02/26 00:34 Chief complaint: Patient states: trapped gas in my stomach since yesterday morning that vc1 travels to my back. took acid reducers and gas pills. Coronavirus screen: Client denies travel out of the [place] in the last 14 days. At this time, the client does not indicate any symptoms associated with coronavirus-19. Ebola Screen: Patient negative for fever greater than or equal to 101.5 degrees Fahrenheit, and additional compatible Ebola Virus Disease symptoms Patient denies exposure to infectious person. Patient denies travel to an Ebola-affected area in the 21 days before illness onset. No symptoms or risks identified at this time. Initial Sepsis Screen: Does the patient meet any 2 criteria? No. Patient's initial sepsis screen is negative. Does the patient have a suspected source of infection? No. Patient's initial sepsis screen is negative. Risk Assessment: Do you want to hurt yourself or someone else? Patient reports no desire to harm self or others. Onset of symptoms was February 26, 2024. 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 00:34 Method Of Arrival: Ambulatory vc1 00:34 Acuity: DELMI 3 vc1 Triage Assessment: 00:38 General: Appears in no apparent distress. comfortable, Behavior is calm, cooperative, vc1 appropriate for age. Pain: Complains of pain in anterior aspect of left upper chest and left lateral anterior chest Pain does not radiate. Pain currently is 5 out of 10 on a pain scale. Quality of pain is described as stabbing, Pain began 1 day ago. EENT: No deficits noted. No signs and/or symptoms were reported regarding the EENT system. Neuro: Level of Consciousness is awake, alert, obeys commands, Oriented to person, place, time, situation, Appropriate for age. Cardiovascular: Capillary refill Patient's skin is warm and dry. Rhythm is regular. Cardiovascular: Reports chest pain, Chest pain is described as mild. Respiratory: Airway is patent Respiratory effort is even, unlabored, Respiratory pattern is regular, symmetrical, Breath sounds are clear bilaterally. GI: Abdomen is round non-distended, Reports gaseousness. : No deficits noted. No signs and/or symptoms were reported regarding the genitourinary system. Derm: Skin is intact, is healthy with good turgor, Skin is dry, Skin is normal, Skin temperature is warm. Musculoskeletal: Circulation, motion, and sensation intact. Range of motion: intact in all extremities. 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 Flu vaccine is up to date. - Infectious Disease History:: Denies. - Social history:: Smoking status: Patient denies any tobacco usage or history of. - Family history:: not pertinent. Screenin:38 [facility] ED Fall Risk Assessment (Adult) History of falling in the last 3 months, vc1 including since admission No falls in past 3 months (0 pts) Confusion or Disorientation No (0 pts) Intoxicated or Sedated No (0 pts) Impaired Gait No (0 pts) Mobility Assist Device Used No (0 pt) Altered Elimination No (0 pt) Score/Fall Risk Level 0 - 2 = Low Risk Oriented to surroundings, Maintained a safe environment, Educated pt \T\ family on fall prevention, incl call for assistance when getting out of bed. Abuse screen: Denies threats or abuse. Nutritional screening: No deficits noted. Tuberculosis screening: No symptoms or risk factors identified. Assessment: 00:51 General: see triage assessment. vc1 04:53 Reassessment: Patient appears in no apparent distress at this time. No changes from lg3 previously documented assessment. Patient and/or family updated on plan of care and expected duration. Pain level reassessed. Patient is alert, oriented x 3, equal unlabored respirations, skin warm/dry/pink. 06:47 Reassessment: Patient appears in no apparent distress at this time. No changes from lg3 previously documented assessment. Patient and/or family updated on plan of care and expected duration. Pain level reassessed. Patient is alert, oriented x 3, equal unlabored respirations, skin warm/dry/pink. Patient states feeling better. Patient states symptoms have improved. Vital Signs: 00:34 BP 154 / 103; Pulse 68; Resp 15; Temp 98.3; Pulse Ox 99% ; Weight 90.72 kg; Height 5 vc1 ft. 5 in. ; Pain 5/10; 02:37 BP 137 / 77; Pulse 60; Resp 16; Temp 98.5; Pulse Ox 100% on R/A; ty 06:48 BP 127 / 71; Pulse 65; Resp 17 S; Pulse Ox 100% on R/A; lg3 00:34 Body Mass Index 33.28 (90.72 kg, 165.1 cm) vc1 00:34 Pain Scale: Adult vc1 [place] Coma Score: 04:48 Eye Response: spontaneous(4). Motor Response: obeys commands(6). Verbal Response: sp4 oriented(5). Total: 15. ED Course: 00:27 Patient arrived in ED. jj6 00:32 Harish Meade MD is Attending Physician. sp4 00:37 Triage completed. vc1 00:38 Arm band placed on right wrist. vc1 00:40 No provider procedures requiring assistance completed. 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 vc1 00:50 Inserted saline lock: 20 gauge in right forearm, using aseptic technique. Blood vc1 collected. Flushed with 10 mL NS. 00:51 CBC with Diff Sent. vc1 00:51 CMP Sent. vc1 00:51 Lipase Sent. vc1 03:44 Patient has correct armband on for positive identification. Placed in gown. Bed in low lg3 position. Call light in reach. Side rails up X 1. Client placed on continuous cardiac and pulse oximetry monitoring. NIBP monitoring applied. Door closed. Noise minimized. Warm blanket given. Pillow given. Family accompanied patient. 04:21 CT Abd/Pelvis - IV Contrast Only In Process Unspecified. EDMS 06:50 IV discontinued, intact, bleeding controlled, No redness/swelling at site. Pressure lg3 dressing applied. Administered Medications: 01:02 Drug: Ondansetron IVP 4 mg IVP once; over 2 minutes Route: IVP; Site: right forearm; vc1 02:38 Follow up: Response: No adverse reaction; Marked relief of symptoms vc1 01:02 Drug: NS 0.9% IV 1000 ml IV at 1 bolus Per protocol; to be given as a bolus over 60 vc1 minutes Route: IV; Rate: 1 bolus; Site: right forearm; 02:38 Follow up: IV Status: Completed infusion; IV Intake: 1000ml vc1 02:00 Drug: Famotidine PO 40 mg PO once Route: PO; bm8 02:37 Follow up: Response: No adverse reaction; Marked relief of symptoms vc1 02:00 Drug: Dicyclomine PO 20 mg PO once Route: PO; bm8 02:38 Follow up: Response: No adverse reaction; Marked relief of symptoms vc1 02:00 Drug: Promethazine PO 25 mg PO once Route: PO; bm8 02:38 Follow up: Response: No adverse reaction; Marked relief of symptoms vc1 02:00 Drug: Ketorolac IVP 30 mg IVP once Route: IVP; Site: right antecubital; bm8 02:38 Follow up: Response: No adverse reaction; Marked relief of symptoms vc1 02:00 Drug: MetoCLOPramide PO 10 mg PO once Route: PO; bm8 02:39 Follow up: Response: No adverse reaction; Marked relief of symptoms vc1 04:01 Drug: GI Cocktail without - (Maalox PO 30 ml, Lidocaine Mucous Membrane 2 % 15 vc1 ml) PO once Route: PO; 06:51 Follow up: Response: No adverse reaction; Marked relief of symptoms lg3 Medication: 00:38 VIS not applicable for this client. vc1 Intake: 02:38 IV: 1000ml; Total: 1000ml. vc1 Outcome: 06:26 Discharge ordered by . sp4 06:50 Discharged to home ambulatory, with significant other, lg3 06:50 Condition: stable 06:50 Discharge instructions given to patient, Instructed on discharge instructions, follow up and referral plans. medication usage, Demonstrated understanding of instructions, follow-up care, medications, Prescriptions given X 1, 06:51 Patient left the ED. lg3 Signatures: Dispatcher [employer] EDRadha Mendez RN RN lg3 Usha Reyesj6 Nanci Valderrama RN RN vc1 Harish Meade MD MD sp4 Baljeet Hernandez Brad, RN RN bm8
[2024-02-27 12:22] VITALS: TEMP 98.5; O2SAT 100
[2024-02-27 12:27] VITALS: BP 127/71
== END 2024-02-27 06:51 | disposition home or self-care (01) ==
LOC: ER 00:25
DX: K29.00 Acute gastritis without bleeding (principal)
CPT/HCPCS: 93005; 85025; 81001; 36415; 81025; 83690; 80053; 74177; 99285; Q9967; Q0169; J2405; J7030

== ENCOUNTER 2024-03-08 05:52 | Emergency (ER) | payer OTHER ==
[2024-03-08 07:52] LABS: Specific Gravity 1.023 (1.005-1.030); Urine Bacteria 20-50 /HPF (<20); Urine Bilirubin NEGATIVE (Negative); Urine Blood Negative (Negative); Urine Clarity Extremely Turbid (Clear); Urine Color Yellow (Yellow); Urine Culture Reflex Order REFLEXED; Urine Glucose NEGATIVE (Negative); Urine Ketones NEGATIVE (Negative); Urine Microscopic Reflex YN ORDER UMIC; Urine Mucus Slight /HPF (None Seen); Urine Nitrite NEGATIVE (Negative); Urine Protein TRACE (Negative); Urine RBC <5 /HPF (None Seen); Urine Urobilinogen Normal (Normal)
--- NOTE | 2024-03-08 07:57 | ER ---
Nurse's Notes [facility] Name: Roxana Sanchez Age: 48 yrs Sex: Female : 1975 Arrival Date: 03/08/2024 Time: 05:52 Bed 19 Private MD: Diagnosis: UTI/ Urinary tract infection, site not specified Presentation: 03/08 06:45 Chief complaint: Patient states: burning with urination and lower abdominal pain. vc1 Coronavirus screen: Client denies travel out of the [place] in the last 14 days. At this time, the client does not indicate any symptoms associated with coronavirus-19. Ebola Screen: Patient negative for fever greater than or equal to 101.5 degrees Fahrenheit, and additional compatible Ebola Virus Disease symptoms Patient denies exposure to infectious person. Patient denies travel to an Ebola-affected area in the 21 days before illness onset. No symptoms or risks identified at this time. Initial Sepsis Screen: Does the patient meet any 2 criteria? No. Patient's initial sepsis screen is negative. Initial Sepsis Screen: Does the patient have a suspected source of infection? No. Patient's initial sepsis screen is negative. Risk Assessment: Do you want to hurt yourself or someone else? Patient reports no desire to harm self or others. Onset of symptoms was March 08, 2024. 06:45 Method Of Arrival: Ambulatory vc1 06:45 Acuity: DELMI 4 vc1 Triage Assessment: 06:50 General: Appears in no apparent distress. uncomfortable, unkempt, Behavior is calm, vc1 cooperative, appropriate for age. Pain: Complains of pain in meatus Pain does not radiate. Pain currently is 7 out of 10 on a pain scale. EENT: No deficits noted. No signs and/or symptoms were reported regarding the EENT system. Neuro: Level of Consciousness is awake, alert, obeys commands, Oriented to person, place, time, situation, Appropriate for age. Cardiovascular: Capillary refill < 3 seconds Patient's skin is warm and dry. Respiratory: Airway is patent Respiratory effort is even, unlabored, Respiratory pattern is regular, symmetrical. GI: No deficits noted. No signs and/or symptoms were reported involving the gastrointestinal system. : Reports burning with urination, pain in suprapubic area with urination. Derm: Skin is intact, is healthy with good turgor, Skin is dry, Skin is normal, Skin temperature is warm. Musculoskeletal: Circulation, motion, and sensation intact. Range of motion: intact in all extremities. Historical: - Allergies: 06:48 Vicodin; vc1 - Home Meds: 06:48 Zoloft Oral [Active]; vc1 - PMHx: 06:48 Anxiety; depressive disorder; vc1 - PSHx: 06:48 section; hysterectomy; vc1 - Immunization history:: Client reports having NOT received the Covid vaccine. - Infectious Disease History:: Denies. - Social history:: Smoking status: Patient denies any tobacco usage or history of. Screenin:49 [facility] [place] ED Fall Risk Assessment (Adult) History of falling in the last 3 months, vc1 including since admission No falls in past 3 months (0 pts) Confusion or Disorientation No (0 pts) Intoxicated or Sedated No (0 pts) Impaired Gait No (0 pts) Mobility Assist Device Used No (0 pt) Altered Elimination No (0 pt) Score/Fall Risk Level 0 - 2 = Low Risk Oriented to surroundings, Maintained a safe environment, Educated pt \T\ family on fall prevention, incl call for assistance when getting out of bed. Abuse screen: Denies threats or abuse. Nutritional screening: No deficits noted. Tuberculosis screening: No symptoms or risk factors identified. Assessment: 07:05 Reassessment: PT AMBULATORY TO RESTROOM. db 07:05 Reassessment: Patient appears in no apparent distress at this time. Patient and/or db family updated on plan of care and expected duration. Pain level reassessed. Patient is alert, oriented x 3, equal unlabored respirations, skin warm/dry/pink. General: Appears in no apparent distress. comfortable, Behavior is calm, cooperative. Neuro: Level of Consciousness is awake, alert, obeys commands, Oriented to person, place, time, situation. Respiratory: Airway is patent Respiratory effort is even, unlabored, Respiratory pattern is regular, symmetrical. GI: Reports bloating. : Reports urinary frequency. 08:06 Reassessment: Patient appears in no apparent distress at this time. Patient and/or db family updated on plan of care and expected duration. Pain level reassessed. Patient is alert, oriented x 3, equal unlabored respirations, skin warm/dry/pink. Vital Signs: 06:45 BP 130 / 82; Pulse 76; Resp 15; Temp 97; Pulse Ox 98% ; vc1 08:06 BP 130 / 82; Pulse 75; Resp 16; Pulse Ox 97% on R/A; db ED Course: 05:57 Patient arrived in ED. ra3 05:58 Chuy Henry DO is Attending Physician. ms3 06:48 Triage completed. vc1 06:49 Arm band placed on right wrist. vc1 07:05 Charlotte Guzman, RN is Primary Nurse. db 07:56 Raul Rodriguez DO is Referral Physician. ms3 08:06 Allergy band placed. Bed in low position. Call light in reach. Side rails up X 1. db Provided Education on: ANTIBIOTICS, DISCHARGE AND FOLLOWUP. Pulse ox on. NIBP on. Warm blanket given. Pillow given. 08:06 No provider procedures requiring assistance completed. Patient did not have IV access db during this emergency room visit. Administered Medications: 08:04 Drug: Cephalexin PO 500 mg PO once Route: PO; db 08:07 Follow up: Response: No adverse reaction db Medication: 08:06 VIS not applicable for this client. db Outcome: 07:56 Discharge ordered by MD. ms3 08:06 Discharged to home ambulatory, db 08:06 Condition: stable 08:06 Discharge instructions given to patient, Instructed on discharge instructions, follow up and referral plans. Prescriptions given X 1, 08:07 Patient left the ED. db Signatures: Chuy Henry DO DO ms3 Nanci Valderrama RN RN vc1 Charlotte Guzman, ELIJAH NAVA db Ericka Ngo ra3
--- NOTE | 2024-03-08 07:57 | EDPHYS ---
Physician Documentation [facility] Name: Roxana Sanchez Age: 48 yrs Sex: Female : 1975 Arrival Date: 03/08/2024 Time: 05:52 Bed 19 Private MD: ED Physician Chuy Henry HPI: 03/08 08:04 This 48 yrs old Black Female presents to ER via Ambulatory with complaints of Urinary ms3 Problem - Burning sensation. 08:04 Roxana Sanchez is a 48-year-old female presenting to the emergency department with ms3 complaints of dysuria. She reports a discomfort level of seven out of ten. She also notes having urinary frequency but denies urgency. She has a past medical history of high blood pressure and a kidney stone in her left kidney. She reports no factors that alleviate or exacerbate her symptoms.. Historical: - Allergies: 06:48 Vicodin; vc1 - Home Meds: 06:48 Zoloft Oral [Active]; vc1 - PMHx: 06:48 Anxiety; depressive disorder; vc1 - PSHx: 06:48 section; hysterectomy; vc1 - Immunization history:: Client reports having NOT received the Covid vaccine. - Infectious Disease History:: Denies. - Social history:: Smoking status: Patient denies any tobacco usage or history of. ROS: 08:04 Constitutional: Negative for fever, and chills. Cardiovascular: Negative for chest ms3 pain, and palpitations. Respiratory: Negative for shortness of breath, cough, wheezing, and pleuritic chest pain, Abdomen/GI: Negative for abdominal pain, nausea, vomiting, diarrhea, and constipation, 08:04 : Positive for urinary symptoms, urinary frequency, small amounts, burning with urination, Exam: 08:04 Constitutional: This is a well developed, well nourished patient who is awake, alert, ms3 and in no acute distress. Neck: Trachea midline, no cervical lymphadenopathy. Supple, full range of motion without nuchal rigidity, or vertebral point tenderness. No Meningismus. Chest/axilla: Normal chest wall appearance and motion. Nontender with no deformity. Cardiovascular: Regular rate and rhythm with a normal S1 and S2. No gallops, murmurs, or rubs. Normal PMI, no JVD. No pulse deficits. Respiratory: Lungs have equal breath sounds bilaterally, clear to auscultation and percussion. No rales, rhonchi or wheezes noted. No increased work of breathing, no retractions or nasal flaring. Abdomen/GI: Soft, non-tender, with normal bowel sounds. No distension or tympany. No guarding or rebound. No evidence of tenderness throughout. Skin: Warm, dry with normal turgor. Normal color with no rashes, no lesions, and no evidence of cellulitis. MS/ Extremity: Pulses equal, no cyanosis. Neurovascular intact. Full, normal range of motion. 08:04 Back: CVA tenderness, is absent, ms3 Vital Signs: 06:45 BP 130 / 82; Pulse 76; Resp 15; Temp 97; Pulse Ox 98% ; vc1 08:06 BP 130 / 82; Pulse 75; Resp 16; Pulse Ox 97% on R/A; db MDM: 06:28 Medical Screening Exam initiated ms3 08:04 Differential diagnosis: urinary tract infection, Pyelonephritis. Data reviewed: vital ms3 signs, nurses notes, lab test result(s), and as a result, I will discharge patient. I considered the following discharge prescriptions or medication management in the emergency department Medications were administered in the Emergency Department. See MAR. Counseling: I had a detailed discussion with the patient and/or guardian regarding the historical points, exam findings, and any diagnostic results supporting the discharge/admit diagnosis, lab results, the need for outpatient follow up, to return to the emergency department if symptoms worsen or persist or if there are any questions or concerns that arise at home. Special discussion: Based on the patient's history, exam and DX evaluation, there is no indication for emergent intervention or inpatient TX. It is understood by the patient/guardian that if the SXs persist or worsen they need to return immediately for re-evaluation. ED course: Discussed positive urinalysis for UTI with the patient. Patient given first dose Keflex in the emergency department. Patient given prescription for Keflex. Patient to follow-up with her primary care physician in 2 to 3 days. Patient understands agrees with plan. All questions were answered. Return precautions discussed include fevers, vomiting, worsening symptoms, or any other concerns. On reevaluation patient is alert and oriented x 4, no apparent distress, nontoxic-appearing, speaking full sentences. 03/08 05:58 Order name: Urinalysis w/ reflexes; Complete Time: 07:55 ms3 03/08 07:55 Order name: Urine Culture EDMS Administered Medications: 08:04 Drug: Cephalexin PO 500 mg PO once Route: PO; db 08:07 Follow up: Response: No adverse reaction db Disposition Summary: 03/08/24 07:56 Discharge Ordered Notes: Location: Home ms3 Condition: Stable ms3 Diagnosis - UTI/ Urinary tract infection, site not specified ms3 Followup: ms3 - With: Raul Rodriguez DO - When: 2 - 3 days - Reason: Recheck today's complaints Discharge Instructions: - Discharge Summary Sheet ms3 - Urinary Tract Infection, Adult ms3 Forms: - Medication Reconciliation Form ms3 - Antibiotic Education ms3 - Prescription Opioid Use ms3 - Patient Portal Instructions ms3 - Leadership Thank You Letter ms3 Prescriptions: - Cephalexin 500 mg Oral capsule - take 1 capsule ORAL route every 12 hours for 7 days; 14 capsule; Refills: 0, ms3 Product Selection Permitted Signatures: Dispatcher [employer] EDMS Chuy Henry DO DO ms3 Nanci Valderrama, RN RN vc1 Charlotte Guzman RN RN db
[2024-03-08] MEDS ORDERED: CEPHALEXIN 250 MG CAP ONE (08:03)
[2024-03-08 08:11] VITALS: BP 130/82; TEMP 97
[2024-03-08 08:13] VITALS: O2SAT 97
== END 2024-03-08 08:07 | disposition home or self-care (01) ==
LOC: ER 05:52
DX: N39.0 Urinary tract infection, site not specified (principal)
CPT/HCPCS: 81001; 87086; 87088; 99283

== ENCOUNTER 2024-11-08 22:39 | Emergency (ER) | payer OTHER ==
--- OUTSIDE RECORDS SUMMARY | 2024-11-08 22:58 | XMS REPORT | Continuity of Care Document ---
Author Name Unknown Address [address] [facility]. [address] [place] [address] Organization [facility] [place] Address [address] [facility]. [address] [place] [address] Care Team Providers Care Language Teacher Name Role Phone [phone] Primary Care Physician Unavailab TANIKA Wilder Attending Clinician Unav Tanika Bustillo MD Attending Clinician + GLYNN FERRARI Attending Clinician Unavailab GEOVANNY Bocanegra Attending Clinician Unavailable Geovanny Delgado DO Attending Clinician + EN HAN Attending Clinician Unavailable En Han MD Attending Clinician + BLANCA FOLEY Attending Clinician Unavailable Blanca Qureshi Attending Clinician + John Christianson Attending Clinician Unavailable INGRID PAEZ Attending Clinician Unavailable Ingrid Paez MD Attending Clinician + Doctor Unassigned, Mcclusky Attending Clinician U wallyailALYSE Sharp Attending Clinician Unavailab Alyse Carpenter DO Attending Clinician + ALEJANDRINA PENA Attending Clinician Unavailable Alejandrina Pena MD Attending Clinician + CRISTAL YOUNG Attending Clinician Unavailab Cristal Michele DO Attending Clinician + RANJIT CHURCH Attending Clinician Unavailable Ranjit Pringle Attending Clinician + DIANA BRADFORD Attending Clinician Unavailable Diana Bradford NP Attending Clinician + Marisol Caal Attending Clinician + MARISOL OCAMPO Attending Clinician Unavailable TANIKA PALMA Admitting Clinician Unav BLANCA Mims Admitting Clinician Unavailable Physician, No Primary or Family Admitting Clinic ashley Unavailable INGRID PAEZ Admitting Clinician Unavailable ALEJANDRINA PENA Admitting Clinician Unavailable CRISTAL YOUNG Admitting Clinician Unavailab RANJIT Rocha Admitting Clinician Unavailable DIANA BRADFORD Admitting Clinician Unavailable Payers Payer Name Policy Type Policy Number Effective Date Expirati on Date Source [employer] [id number] 2022 00:00:00 2023 00:00:00 [facility] GILBERTO PEREZ COPAY FOCUS 9 [id number] 2023 00:00:00 PHCS-AIU/PPO 2 [id number] 2023 00:00:00 [facility] [place] [facility] [id number] 2018 00:00:00 Problems Condition Name Condition Details Condition Category Status Onset Date Resolution Date Last Treatment Date Treating Clinician Comments Source PANIC ATTACK PANIC ATTACK Active 04/10/2018 [facility] Diagnosis Active 04-10 00:00: 00 2018-06-23 10:12:00 Raven Gibson HEART PROBLEMS HEART PROBLEMS Active 03/29/2018 [facility] Diagnosis Active 03-29 00:00: 00 2018-06-17 21:29:00 Meminderjit Gibson SOB WEAK SOB WEAK Active 11/16/2017 [facility] Diagnosis Active 11-16 00:00: 00 2018-07-04 16:41:00 Memoria candace Gibson DIZZY/ WEAKNESS DIZZY/ WEAKNESS Active 10/31/2017 [facility] Diagnosis Active 10-31 00:00: 00 2018-06-20 19:28:00 Meminderjit Gibson CHEST PAIN CHEST PAIN Active 10/25/2017 [facility] Diagnosis Active 10-25 00:00: 00 2018-06-23 10:12:00 Meminderjit maria Arthur ABD PAIN AND BACKK PAIN ABD PAIN AND BACKK PAIN Active 10/13/2017 [facility] Diagnosis Active 10-13 00:00: 00 2018-06-20 19:28:00 Meminderjit Gibson UTERINE FIBROIDS-D 25.9/ MENORRHAGI A-N92.0/ DYSMENORRH EA-N94 UTERINE FIBROIDS-D 25.9/ MENORRHAGI A-N92.0/ DYSMENORRH EA-N94 Active 04/24/2016 [place] Diagnosis Active 04-24 00:00: 00 2016-05-01 11:50:00 Meminderjit Gibson FEVER FEVER Active 03/17/2016 [facility] Diagnosis Active 2015-03 00:00: 00 2016-03-17 16:45:00 Meminderjit Gibson ARM PAIN ARM PAIN Active 08/03/2015 [facility] Diagnosis Active 08-02 00:00: 00 2015-10-04 06:03:00 Meminderjit Gibson SHORTNESS OF BREATH SHORTNESS OF BREATH Active 04/07/2015 [facility] Diagnosis Active 04-07 00:00: 00 2015-04-07 10:14:00 Memoria candace Gibson CHEST PAIN, ANEMIA CHEST PAIN, ANEMIA Active 11/05/2014 [facility] Diagnosis Active 11-05 00:00: 00 2014-11-25 16:15:00 Memoria candace Gibson SOB SOB Active 03/07/2013 [facility] Diagnosis Active 2012-03 00:00: 00 2013-03-07 10:30:00 Memoria candace Gibson VOMITING VOMITING Active 03/07/2013 [facility] Diagnosis Active 2012-03 00:00: 00 2013-03-07 15:44:00 Meminderjit Gibson MOUTH PAIN MOUTH PAIN Active 04/03/2012 [facility] Diagnosis Active 04-03 00:00: 00 2012-04-04 02:18:00 Meminderjit Gibson Weakness Weakness 10/28/2018 [facility] Problem 2018-10-28 15:48:36 Memoria candace Gibson Major depressive disorder, single episode, unspecifie d Major depressive disorder, single episode, unspecifie d 10/28/2018 [facility] Problem 2018-10-28 15:48:36 Raven Gibson Allergy status to narcotic agent status Allergy status to narcotic agent status 10/28/2018 [facility] Problem 2018-10-28 15:48:36 Raven Gibson Hyperlipid emia, unspecifie d Hyperlipid emia, unspecifie d 10/28/2018 Florence Grewal [facility] Problem 2018-10-28 15:48:36 Raven Gibson 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 10/16/2018 [facility] [place] Problem 2018-10-16 15:24:24 Raven Gibson senior care (current) use of aspirin senior care (current) use of aspirin 05/15/2018 [facility] Problem 2018-05-15 15:12:19 Raven Gibosn Anemia, unspecifie d Anemia, unspecifie d 06/06/2018 [facility] Problem 2018-06-06 12:26:54 Raven Gibson Essential (primary) hypertensi on Essential (primary) hypertensi on 05/02/2018 [facility] Problem 2018-05-02 13:32:53 Raven Gibson Altered mental status, unspecifie d Altered mental status, unspecifie d 05/20/2018 [facility] Problem 2018-05-20 16:43:34 Raven Gibson Hyperlipid emia (disorder) Hyperlipid emia (disorder) Resolved Problem 10/28/2018 [facility] [place] [place] Problem Resolve d 2018-10-28 15:48:36 Raven Gibson None (qualifier value) None (qualifier value) Resolved Problem 10/28/2018 [facility] [place] Problem Resolve d 2018-10-28 15:48:36 Raven Gibson Anemia (disorder) Anemia (disorder) Active Problem 10/28/2018 [facility] Problem Active 2018-10-28 15:48:36 Raven Gibson Dysmenorrh ea (disorder) Dysmenorrh ea (disorder) Active Problem 10/28/2018 [facility] [facility] Problem Active 2018-10-28 15:48:36 Raven Gibson Menorrhagi a (finding) Menorrhagi a (finding) Active Problem 10/28/2018 [facility] [facility] Problem Active 2018-10-28 15:48:36 Raven Gibson Uterine leiomyoma (disorder) Uterine leiomyoma (disorder) Active Problem 10/28/2018 [facility] [facility] Problem Active 2018-10-28 15:48:36 Raven Gibson No known active problems No known active problems Disease [facility] History of Past Illness Condition Name Condition Details Condition Category Status Onset Date Resolution Date Last Treatment Date Treating Clinician Comments Source Anxiety disorder, unspecifie d Anxiety disorder, unspecifie d 04/10/2018 10/28/2018 [facility] Problem 2018-0 1-16 06:00: 00 2018-10-28 15:48:36 2018-10-28 15:48:36 Memoria candace Gibson Chest pain, unspecifie d Chest pain, unspecifie d 03/29/2018 10/16/2018 [facility] [place] Problem 2019-0 1-04 06:00: 00 2018-10-16 15:24:24 2018-10-16 15:24:24 Memoria candace Gibson Myalgia Myalgia 11/17/2017 06/06/2018 [facility] Problem 2018-0 8-25 05:00: 00 2018-06-06 12:26:54 2018-06-06 12:26:54 Memoria candace Gibson Shortness of breath Shortness of breath 11/17/2017 06/06/2018 [facility] Problem 2018-0 8-25 05:00: 00 2018-06-06 12:26:54 2018-06-06 12:26:54 Memoria candace Gibson Disorienta tion, unspecifie d Disorienta tion, unspecifie d 10/31/2017 05/20/2018 [facility] Problem 2017-0 8-08 05:00: 00 2018-05-20 16:43:34 2018-05-20 16:43:34 Memoria candace Gibson Gastro-eso phageal reflux disease without esophagiti s Gastro-eso phageal reflux disease without esophagiti s 10/26/2017 05/15/2018 [facility] Problem 2017-0 8-03 05:00: 00 2018-05-15 15:12:19 2018-05-15 15:12:19 Troyoria candace Gibson Calculus of ureter Calculus of ureter 10/13/2017 05/02/2018 [facility] Problem 2017-0 7-21 05:00: 00 2018-05-02 13:32:53 2018-05-02 13:32:53 Memoria candace Gibson Unspecifie d renal colic Unspecifie d renal colic 10/13/2017 05/02/2018 [facility] 2017-0 7-21 05:00: 00 2018-05-02 13:32:53 2018-05-02 13:32:53 Memoria l Arthur Discharge Diagnosis: Acute URI Discharge Diagnosis: Acute URI 03/17/2016 03/20/2016 [place] Problem 2015-03 06:00: 00 2016-03-20 04:09:49 2016-03-20 04:09:49 Raven Gibson Discharge Diagnosis: Acute UTI Discharge Diagnosis: Acute UTI 03/17/2016 03/20/2016 [place] Problem 2015-03 06:00: 00 2016-03-20 04:09:49 2016-03-20 04:09:49 Raven Gibson Discharge Diagnosis: Pain, arm, right Discharge Diagnosis: Pain, arm, right 08/03/2015 08/06/2015 [facility] Problem 510 05:00: 00 2015-08-06 04:50:15 2015-08-06 04:50:15 Raven Gibson Discharge Diagnosis: Microcytic anemia Discharge Diagnosis: Microcytic anemia 11/03/2014 11/06/2014 [facility] Problem 8- 05:00: 00 2014-11-06 07:57:24 2014-11-06 07:57:24 Raven Gibson Discharge Diagnosis: Chest pain Discharge Diagnosis: Chest pain 11/03/2014 11/06/2014 [facility] Problem 8 05:00: 00 2014-11-06 07:57:24 2014-11-06 07:57:24 Raven Gibson Allergies, Adverse Reactions, Alerts Allergy Name Allergy Type Status Severity Reaction(s) Onset Date Inactive Date Treating Clinician Comments Source acetamin ophen DA Active CT NAUSEA 12-01 00:00: 00 [facility] hydrocod one DA Active CT NAUSEA 12-01 00:00: 00 [facility] [place] - Intraven ous Propensi ty to adverse reaction to drug Active 09-21 00:00: 00 Emiliano Sahu Vicodin Propensi ty to adverse reaction to drug Active 05-18 00:00: 00 Emiliano Sahu HYDROCOD ONE DRUG INGREDI Active Hallucinates 07-13 00:00: 00 [facility] Hydrocod one Propensi ty to adverse reaction s Active Shortness of Breath 07-13 00:00: 00 [facility] hydrocod one DA Active CT NAUSEA 07-29 00:00: 00 [facility] acetamin ophen DA Active CT NAUSEA 07-29 00:00: 00 [facility] Vicodin Vicodin Active Raven Gibson Social History Social Habit Start Date Stop Date Quantity Comments Source [facility] Alcohol intake 2023-03-08 00:00:00 2023-03-08 00:00:00 Current non-drinker of alcohol (finding) [facility] History of Social function 2023-03-08 00:00:00 2023-03-08 00:00:00 [facility] Exposure to SARS-CoV-2 (event) 2022-07-09 00:00:00 2022-07-19 04:09:00 Not sure [facility] Tobacco use and exposure 2017-07-13 00:00:00 2017-07-13 00:00:00 Smokeless tobacco non-user [facility] Social History 2014-11-05 19:37:55 2014-11-05 19:37:55 [facility] Arthur Sex Assigned At 1975 00:00:00 1975 00:00:00 [facility] Smoking Status Start Date Stop Date Source Never smoked tobacco [facility] Medications Ordered Medication Name Filled Medication Name Start Date Stop Date Current Medication? Ordering Clinician Indication Dosage Frequency Signature (SIG) Comments Components Source cyclobenzap rine 10 mg tablet 10-23 00:00: 00 Yes 1mg Emiliano Sahu ibuprofen 600 mg tablet 10-17 00:00: 00 Yes 1mg Emiliano Sahu Macrobid 100 mg capsule 10-17 00:00: 00 Yes 1mg Emiliano Sahu Macrobid 100 mg capsule 08-20 00:00: 00 Yes 1mg Emiliano Sahu Pepcid 20 mg tablet 2023-03- 00:00: 00 Yes 2mg Emiliano Sahu sertraline 50 mg tablet 2023-03- 00:00: 00 Yes 1mg Emiliano Sahu sertraline 25 mg tablet 09-23 00:00: 00 Yes mg Emiliano Sahu ketorolac (TORADOL) injection 15 mg 07-25 01:30: 00 07-25 01:28 :00 No 15mg 15 mg, Slow IV Push, ONCE, 1 dose, On Sun07/25/23 at 2030, Routine [facility] ondansetron (ZOFRAN (PF)) injection 4 mg 07-25 00:45: 00 07-25 01:28 :00 No 4mg 4 mg, Slow IV Push, ONCE, 1 dose, On Sun07/25/23 at 1945, MESSI [facility] ketorolac 10 mg tablet 07-24 00:00: 00 Yes [id number] 10mg Take 1 tablet by mouth every 6 (six) hours as needed for Pain (scale 4-6). [facility] TAKE 1 TABLET BY MOUTH EVERY 6 HOURS NEEDED FOR PAIN (SCALE 4-6) 07-24 00:00: 00 Yes Emiliano Sahu dexamethaso ne (DECADRON) injection 10 mg 2022-03 04:15: 00 03-09 03:15 :00 No 10mg 10 mg, Oral, ONCE, 1 dose, On Sun03/08/23 at 2215, Routine [facility] chlorphenir amine 4 mg tablet 2022-03 00:00: 00 Yes [id number] 4mg Take 1 tablet by mouth every 6 (six) hours as needed for Allergies or Runny nose. [facility] loperamide 2 mg capsule 2022-03 00:00: 00 Yes [id number] 2mg Take 1 capsule by mouth every 4 (four) hours as needed for Diarrhea. Not to exceed 16mg daily. [facility] TAKE 1 CAPSULE BY MOUTH THREE TIMES DAILY NEEDED FOR COUGH 2022-03 00:00: 00 Yes Emiliano Sahu benzonatate 100 mg capsule 2022-03 00:00: 00 Yes [id number] 100mg Take 1 capsule by mouth 3 (three) times daily as needed for Cough. [facility] ibuprofen 800 mg tablet 2022-03 00:00: 00 Yes mg Emiliano Sahu amoxicillin 875 mg-stepan garcia clavulanate 125 mg tablet 2022-03 00:00: 00 Yes mg Emiliano Sahu TAKE 1 TABLET BY MOUTH EVERY 12 HOURS FOR 10 DAYS 2022-03 00:00: 00 Yes Emiliano Sahu buspirone 10 mg tablet 12-06 00:00: 00 Yes mg Emiliano Sahu ketorolac (TORADOL) injection 30 mg 12-05 02:30: 00 12-05 01:43 :00 No 30mg 30 mg, Slow IV Push, ONCE, 1 dose, On Sun12/04/22 at 2130, Routine [facility] ibuprofen 800 mg tablet 12-04 00:00: 00 Yes [id number] 800mg Take 1 tablet by mouth every 6 (six) hours as needed for Pain (scale 4-6) or Pain (scale 1-3). [facility] methocarbam oL 500 mg tablet 12-04 00:00: 00 Yes [id number] 500mg Take 1 tablet by mouth 4 (four) times daily as needed for Pain (scale 4-6) or Pain (scale 7-10). [facility] ondansetron 4 mg disintegrat ing tablet 12-04 00:00: 00 Yes [id number] 4mg Take 1 tablet by mouth every 8 (eight) hours as needed for Nausea and Vomiting (N/V). [facility] TAKE 1 TAB PO QD X 7 DAYS THEN 2 TAB PO QD 11-29 00:00: 00 08-02 00:00 :00 No 25 Emiliano Sahu TAKE 1 TABLET DAILY. 08-22 00:00: 08-02 00:00 :00 No 25 Emiliano Sahu NaCl 0.9% (NS) bolus infusion 500 mL 07-19 09:30: 00 07-19 10:00 :00 No 500mL at 999 mL/hr, 500 mL, IV Infusion, ONCE, 1 dose, On Sun07/19/22 at 0430, STAT [facility] TAKE 1 CAPSULE BY MOUTH IN THE MORNING 04-12 00:00: 00 08-02 00:00 :00 No Emiliano Sahu INHALE 1-2 PUFFS EVERY 4-6 HOURS NEEDED AND DIRECTED. 04-12 00:00: 00 08-02 00:00 :00 No [id number] Emiliano Sahu Nitrofurant oin&Nit. Macrocryst (MACROBID) 100 mg capsule 04-06 00:00: 00 Yes [id number] 100mg Take 1 capsule by mouth in the morning and 1 capsule in the evening. [facility] tamsulosin (FLOMAX) 0.4 mg 24 hr capsule 04-06 00:00: 00 Yes [id number] .4mg Take 1 capsule by mouth in the morning. [facility] TAKE 1 CAPSULE BY MOUTH IN THE MORNING AND TAKE 1 CAPSULE IN THE EVENING 04-06 00:00: 00 08-02 00:00 :00 No Emiliano Sahu TAKE 1 CAPSULE TWICE DAILY. 2021-03 2 00:00: 00 08-02 00:00 :00 No Emiliano Sahu TAKE 1 TABLET DAILY. 2021-03 00:00: 00 08-02 00:00 :00 No Emiliano Sahu TAKE 1 CAPSULE BY MOUTH EVERY 8 HOURS NEEDED FOR COUGH AND CONGESTION 2021-03 00:00: 00 08-02 00:00 :00 No 100 Emiliano Sahu Dose Unknown 2021-03 215 00:00: 00 08-02 00:00 :00 No 100 Emiliano Sahu TAKE 1 TABLET BY MOUTH EVERY 12 HOURS 2021-0315 00:00: 00 08-02 00:00 :00 No Emiliano Sahu 2-4 GRAMS APPLIED DAILY X 1-2 WEEKS AND THEN 1 GRAM APPLIED 1-3 TIMES A WEEK 2021-03 1-16 00:00: 00 08-02 00:00 :00 No 1unit Emiliano Sahu TAKE 1 TABLET BY MOUTH ONCE DAILY 7-28 00:00: 00 08-02 00:00 :00 No Emiliano Sahu ibuprofen (IBU) tablet 600 mg 10-18 15:45: 00 10-18 16:12 :00 No 600mg 600 mg, Oral, ONCE, 1 dose, On Sun10/18/21 at 1045, [facility] Dose Unknown 10-13 00:00: 00 No 250 TAKE 1 TABLET BY MOUTH 4 TIMES DAILY 10-13 00:00: 00 No 20 Dose Unknown 10-13 00:00: 00 No 250 TAKE 1 TABLET BY MOUTH 4 TIMES DAILY 10-13 00:00: 00 No 20 Dose Unknown 10-13 00:00: 00 No 250 TAKE 1 TABLET BY MOUTH 4 TIMES DAILY 10-13 00:00: 00 No 20 Dose Unknown 10-13 00:00: 00 Yes 100 Emiliano Sahu Dose Unknown 10-13 00:00: 00 Yes 100 Emiliano Sahu DISSOLVE 1 NICO IN MOUTH 5 TIMES DAILY 10-11 00:00: 00 No 10 TAKE 1 CAPSULE BY MOUTH EVERY 12 HOURS FOR 10 DAYS 10-11 00:00: 00 No 100 Dose Unknown 10-11 00:00: 00 No TAKE 1 CAPSULE BY MOUTH EVERY 12 HOURS FOR 10 DAYS 10-11 00:00: 00 No 100 Dose Unknown 10-11 00:00: 00 No TAKE 1 CAPSULE BY MOUTH EVERY 12 HOURS FOR 10 DAYS 10-11 00:00: 00 No 100 Dose Unknown 10-11 00:00: 00 Yes Emiliano Sahu TAKE 1 CAPSULE BY MOUTH EVERY 12 HOURS FOR 10 DAYS 10-11 00:00: 00 Yes 100 Emiliano Sahu sertraline 25 mg tablet 10-07 00:00: 00 No 1mg TAKE 1 CAPSULE BY MOUTH EVERY 12 HOURS FOR 10 DAYS 10-07 00:00: 00 No 100 TAKE 1 CAPSULE BY MOUTH EVERY 8 HOURS NEEDED FOR COUGH AND CONGESTION 10-07 00:00: 00 No 100 sertraline 25 mg tablet 10-07 00:00: 00 No 1mg TAKE 1 CAPSULE BY MOUTH EVERY 12 HOURS FOR 10 DAYS 10-07 00:00: 00 No 100 TAKE 1 CAPSULE BY MOUTH EVERY 8 HOURS NEEDED FOR COUGH AND CONGESTION 10-07 00:00: 00 No 100 sertraline 25 mg tablet 10-07 00:00: 00 No 1mg TAKE 1 CAPSULE BY MOUTH EVERY 12 HOURS FOR 10 DAYS 10-07 00:00: 00 No 100 TAKE 1 CAPSULE BY MOUTH EVERY 8 HOURS NEEDED FOR COUGH AND CONGESTION 10-07 00:00: 00 No 100 Dose Unknown 10-07 00:00: 00 Yes 100 Emiliano Sahu TAKE 1 CAPSULE BY MOUTH EVERY 12 HOURS FOR 10 DAYS 10-07 00:00: 00 Yes 100 Emiliano F Luis Alberto TAKE 1 CAPSULE BY MOUTH EVERY 8 HOURS NEEDED FOR COUGH AND CONGESTION 10-07 00:00: 00 Yes Emiliano Sahu TAKE 1 CAPSULE BY MOUTH EVERY 12 HOURS FOR 10 DAYS TED DE LA CRUZ 09-29 00:00: 00 No 100 DISSOLVE 1 NICO IN MOUTH 5 TIMES DAILY 09-29 00:00: 00 No 10 Dose Unknown 09-29 00:00: 00 No 250 TAKE 1 CAPSULE BY MOUTH EVERY 12 HOURS FOR 10 DAYS TED [facility] 09-29 00:00: 00 No 100 DISSOLVE 1 NICO IN MOUTH 5 TIMES DAILY 09-29 00:00: 00 No 10 Dose Unknown 09-29 00:00: 00 No 250 TAKE 1 CAPSULE BY MOUTH EVERY 12 HOURS FOR 10 DAYS TED [facility] 09-29 00:00: 00 No 100 DISSOLVE 1 NICO IN MOUTH 5 TIMES DAILY 09-29 00:00: 00 No 10 Dose Unknown 09-29 00:00: 00 No 250 TAKE 1 CAPSULE BY MOUTH EVERY 12 HOURS FOR 10 DAYS TED [facility] 09-29 00:00: 00 No 100 DISSOLVE 1 NICO IN MOUTH 5 TIMES DAILY 09-29 00:00: 00 No 10 Dose Unknown 09-29 00:00: 00 No 250 TAKE 1 CAPSULE BY MOUTH EVERY 12 HOURS FOR 10 DAYS TED [facility] 09-29 00:00: 00 Yes 100 Emiliano Sahu DISSOLVE 1 NICO IN MOUTH 5 TIMES DAILY 09-29 00:00: 00 Yes 10 Emiliano Sahu Dose Unknown 09-29 00:00: 00 Yes 250 Emiliano Sahu iopamidol (ISOVUE 370-500 mL) injection 70 mL 09-24 17:17: 00 09-24 17:30 :00 No [id number] 70mL 70 mL, Intravenou s, ONCE, 1 dose, On 09/24/21 at 1230, Routine [facility] dicyclomine 20 mg tablet 09-24 00:00: 00 Yes [id number] 20mg Take 1 tablet by mouth 4 (four) times daily. [facility] docusate sodium 250 mg capsule 09-24 00:00: 00 Yes [id number] 250mg Take 1 capsule by mouth once daily as needed for Constipati on. [facility] ondansetron 4 mg disintegrat ing tablet 09-24 00:00: 00 Yes [id number] 4mg Take 1 tablet by mouth every 4 (four) hours as needed for Nausea and Vomiting (N/V). [facility] TAKE 1 TABLET BY MOUTH 4 TIMES DAILY 09-24 00:00: 00 08-02 00:00 :00 No Emiliano Sahu ibuprofen 800 mg tablet 09-21 00:00: 00 No 1mg tizanidine 4 mg capsule 09-21 00:00: 00 No 1mg Dose Unknown 09-21 00:00: 00 No TAKE 2 TABLETS BY MOUTH ON DAY 1, AND THEN TAKE 1 TABLET BY MOUTH ONCE A DAY ON DAY 2 THROUGH DAY 5 09-21 00:00: 00 No TAKE 1 CAPSULE BY MOUTH EVERY 8 HOURS NEEDED FOR COUGH AND CONGESTION 09-21 00:00: 00 No TAKE 1 CAPSULE BY MOUTH EVERY 12 HOURS FOR 10 DAYS TED DE [facility] 09-21 00:00: 00 No ibuprofen 800 mg tablet 09-21 00:00: 00 No 1mg tizanidine 4 mg capsule 09-21 00:00: 00 No 1mg Dose Unknown 09-21 00:00: 00 No TAKE 2 TABLETS BY MOUTH ON DAY 1, AND THEN TAKE 1 TABLET BY MOUTH ONCE A DAY ON DAY 2 THROUGH DAY 5 09-21 00:00: 00 No TAKE 1 CAPSULE BY MOUTH EVERY 8 HOURS NEEDED FOR COUGH AND CONGESTION 09-21 00:00: 00 No TAKE 1 CAPSULE BY MOUTH EVERY 12 HOURS FOR 10 DAYS TED [facility] 09-21 00:00: 00 No ibuprofen 800 mg tablet 09-21 00:00: 00 No 1mg tizanidine 4 mg capsule 09-21 00:00: 00 No 1mg Dose Unknown 09-21 00:00: 00 No TAKE 2 TABLETS BY MOUTH ON DAY 1, AND THEN TAKE 1 TABLET BY MOUTH ONCE A DAY ON DAY 2 THROUGH DAY 5 09-21 00:00: 00 No TAKE 1 CAPSULE BY MOUTH EVERY 8 HOURS NEEDED FOR COUGH AND CONGESTION 09-21 00:00: 00 No TAKE 1 CAPSULE BY MOUTH EVERY 12 HOURS FOR 10 DAYS TED DE [facility] CR[facility] 09-21 00:00: 00 No ibuprofen 800 mg tablet 09-21 00:00: 00 No 1mg tizanidine 4 mg capsule 09-21 00:00: 00 No 1mg Dose Unknown 09-21 00:00: 00 No TAKE 2 TABLETS BY MOUTH ON DAY 1, AND THEN TAKE 1 TABLET BY MOUTH ONCE A DAY ON DAY 2 THROUGH DAY 5 09-21 00:00: 00 No TAKE 1 CAPSULE BY MOUTH EVERY 8 HOURS NEEDED FOR COUGH AND CONGESTION 09-21 00:00: 00 No TAKE 1 CAPSULE BY MOUTH EVERY 12 HOURS FOR 10 DAYS TED DE [facility] CRU[facility] 09-21 00:00: 00 No Dose Unknown 09-21 00:00: 00 Yes Emiliano Sahu Dose Unknown 09-21 00:00: 00 Yes Emiliano Sahu Dose Unknown 09-21 00:00: 00 Yes Emiliano Sahu TAKE 2 TABLETS BY MOUTH ON DAY 1, AND THEN TAKE 1 TABLET BY MOUTH ONCE A DAY ON DAY 2 THROUGH DAY 5 09-21 00:00: 00 Yes Emiliano Sahu TAKE 1 CAPSULE BY MOUTH EVERY 8 HOURS NEEDED FOR COUGH AND CONGESTION 2021-0 09-21 00:00: 00 Yes Emiliano Sahu TAKE 1 CAPSULE BY MOUTH EVERY 12 HOURS FOR 10 DAYS TED DE LA CRUZ 2021-0 09-21 00:00: 00 Yes Emiliano Sahu sertraline 25 mg tablet 2021-0 2- 00:00: 00 No 1mg sertraline 25 mg tablet 2021-0 2- 00:00: 00 No 1mg sertraline 25 mg tablet 2021-0 2- 00:00: 00 No 1mg sertraline 25 mg tablet 2021-0 2- 00:00: 00 No 1mg sertraline 25 mg tablet 2021-0 2- 00:00: 00 Yes 1mg Emiliano Sahu clotrimazol e 10 mg nico 2021-0 2-03 00:00: 00 No 1mg nitrofurant oin macrocrysta l 100 mg capsule 2021-0 2-03 00:00: 00 No 1mg clotrimazol e 10 mg nico 2021-0 2-03 00:00: 00 No 1mg nitrofurant oin macrocrysta l 100 mg capsule 2021-0 2-03 00:00: 00 No 1mg clotrimazol e 10 mg nico 2021-0 2-03 00:00: 00 No 1mg nitrofurant oin macrocrysta l 100 mg capsule 2021-0 2-03 00:00: 00 No 1mg clotrimazol e 10 mg nico 2021-0 2-03 00:00: 00 No 1mg nitrofurant oin macrocrysta l 100 mg capsule 2021-0 2-03 00:00: 00 No 1mg clotrimazol e 10 mg nico 2-0 2-03 00:00: 00 Yes 1mg Emiliano Sahu Dose Unknown 2021-0 2-03 00:00: 00 Yes Emiliano Sahu clotrimazol e 10 mg nico 2021-0 1-28 00:00: 00 No 1mg clotrimazol e 10 mg nico 2021-0 1-28 00:00: 00 No 1mg clotrimazol e 10 mg nico 2-0 1-28 00:00: 00 No 1mg clotrimazol e 10 mg nico 04-22 00:00: 00 No 1mg clotrimazol e 10 mg nico 04-22 00:00: 00 Yes 1mg Emiliano Sahu cephALEXin (KEFLEX) capsule 500 mg 04-10 21:35: 00 04-10 21:51 :00 No 500mg 500 mg, Oral, ONCE, 1 dose, On 04/10/21 at 1545, MESSI
Re ason for Anti-Infec tive: Documented Infection< br>Documen kuldip Infection Site: Urine
D uration of Therapy: 7 days [facility] cephALEXin (KEFLEX) 500 mg capsule 04-10 00:00: 00 04-18 05:59 :00 No [id number] 500mg Take 1 capsule by mouth 3 (three) times daily for 7 days. [facility] NaCl 0.9% (NS) IV infusion 1,000 mL 09-11 03:15: 00 Yes 1000mL at 999 mL/hr, Intravenou s, CONTINUOUS , Starting Sun09/10/20 at 2215, Until Discontinu ed, Routine [facility] naproxen sodium 550 mg tablet 09-10 00:00: 00 Yes [id number] 550mg Take 1 tablet by mouth 2 (two) times daily with meals. [facility] acetaminoph en (TYLENOL) tablet 650 mg 05-05 22:45: 00 05-05 21:36 :00 No 650mg 650 mg, Oral, ONCE, 1 dose, Sun05/05/20 at 1645, [facility] cephALEXin 500 mg capsule 05-05 00:00: 00 05-13 05:59 :00 No [id number] 500mg Take 1 capsule by mouth 4 (four) times daily for 7 days. [facility] Clonazepam 1- 01:19: 00 No Notes: (Same As: KlonoPIN) Raven Gibson psyllium husk 6 gram/6 gram oral powder 2018-0 8-30 00:00: 00 No 30mg/0. 65 mL psyllium husk 6 gram/6 gram oral powder 11-22 00:00: 00 No 30mg/0. 65 mL psyllium husk 6 gram/6 gram oral powder 11-22 00:00: 00 No 30mg/0. 65 mL psyllium husk 6 gram/6 gram oral powder 11-22 00:00: 00 No 30mg/0. 65 mL psyllium husk 6 gram/6 gram oral powder 11-22 00:00: 00 Yes 30mg/0. 65 mL Emiliano Sahu ibuprofen 800 mg oral tablet 11-17 05:53: 00 No 800 mg = 1 tab, PO, Q8H, # 30 tab, 0 Refill(s) Raven Gibson Sodium Chloride 0.9% (Bolus) IV 11-17 03:04: 00 No 1,000 mL, 1000 ml/hr, Infuse Over: 1 hr, Route: IV, 1,000, Drug form: INJ, ONCE, Priority: STAT, Dosing Weight 68.182 kg, Start date: 11/16/17 22:04:00 CDT, Stop date: 11/16/17 22:04:00 CDT Meminderjit Gibson Saline Flush 0.9% 11-17 03:01: 00 No Notes: (Same as: BD Posiflush) Raven Gibson hydroxyzine HCl 50 mg tablet 11-08 00:00: 00 No 1mg hydroxyzine HCl 50 mg tablet 11-08 00:00: 00 No 1mg hydroxyzine HCl 50 mg tablet 11-08 00:00: 00 No 1mg hydroxyzine HCl 50 mg tablet 11-08 00:00: 00 No 1mg hydroxyzine HCl 50 mg tablet 11-08 00:00: 00 Yes 1mg Emiliano Sahu Saline Flush 0.9% 10-31 20:09: 00 No Notes: (Same as: BD Posiflush) Raven Gibson Famotidine 40 MG Oral Tablet [Pepcid] 10-26 07:23: 00 Yes 40 mg = 1 tab, PO, Daily, # 30 tab, 0 Refill(s) Raven Gibson Lidocaine Viscous 2% mucous membrane solution 10-26 06:59: 00 No Notes: (Same as: Xylocaine) Raven Gibson Reglan 10-26 06:17: 00 No Notes: (Same as: Reglan) Raven Gibson Maalox Regular Strength TAB 10-26 06:12: 00 No Notes: (Same As: Tums) Calcium Carbonate 500 mg = 200 mg elemental calcium Dose = mg calcium carbonate ( mg elemental calcium) Raven Gibson Aspirin 10-26 04:18: 00 No Notes: Take with food. Raven Gibson citalopram 20 mg tablet 10-25 00:00: 00 No 1mg citalopram 20 mg tablet 10-25 00:00: 00 No 1mg citalopram 20 mg tablet 10-25 00:00: 00 No 1mg citalopram 20 mg tablet 10-25 00:00: 00 No 1mg citalopram 20 mg tablet 10-25 00:00: 00 Yes 1mg Emiliano Sahu ranitidine 150 mg tablet 10-22 00:00: 00 No 1mg ranitidine 150 mg tablet 10-22 00:00: 00 No 1mg ranitidine 150 mg tablet 10-22 00:00: 00 No 1mg ranitidine 150 mg tablet 10-22 00:00: 00 No 1mg ranitidine 150 mg tablet 10-22 00:00: 00 Yes 1mg Emiliano Sahu ketOROLAC 30 mg/mL injectable solution 10-13 17:11: 00 No 30 mg, Route: IVP, Drug form: INJ, ONCE, Dosing Weight 76, kg, Priority: STAT, Start date: 10/13/17 12:11:00 CDT, Stop date: 10/13/17 12:11:00 CDT Raven Gibson naproxen 500 mg oral tablet 10-13 17:05: 00 No 500 mg = 1 tab, PO, Q12H, PRN Pain, X 10 day, # 20 tab, 0 Refill(s) Raven Gibson Morphine 10-13 14:54: 00 No 2 mg, 1 mL, Route: IVP, Drug form: SOLN, ONCE, Dosing Weight 76, kg, Priority: STAT, Start date: 10/13/17 9:54:00 CDT, Stop date: 10/13/17 9:54:00 CDT Raven Gibson Ondansetron 10-13 14:54: 00 No Notes: (Same as: Loni) MEDICATION WASTE Product Size: 4 mg Product Wasted: ___ mg Raven Gibson Sodium Chloride 0.9% (Bolus) IV 10-13 14:54: 00 No 1,000 mL, 1000 ml/hr, Infuse Over: 1 hr, Route: IV, 1,000, Drug form: INJ, ONCE, Priority: STAT, Dosing Weight 76 kg, Start date: 10/13/17 9:54:00 CDT, Stop date: 10/13/17 9:54:00 CDT Raven Gibson Saline Flush 0.9% 10-13 14:54: 00 No Notes: (Same as: BD Posiflush) Raven Gibson docusate sodium 250 mg capsule 09-29 00:00: 00 Yes 250mg Take 1 capsule by mouth daily. [facility] dicyclomine (BENTYL) 10 mg capsule 09-29 00:00: 00 Yes 10mg Take 1 capsule by mouth 4 (four) times daily. [facility] ondansetron 4 mg disintegrat ing tablet 09-29 00:00: 00 Yes 4mg Take 1 tablet by mouth every 4 (four) hours as needed for Nausea and Vomiting (N/V). [facility] metoprolol tartrate 25 mg tablet 09-23 00:00: 00 No 1mg metoprolol tartrate 25 mg tablet 09-23 00:00: 00 No 1mg metoprolol tartrate 25 mg tablet 09-23 00:00: 00 No 1mg metoprolol tartrate 25 mg tablet 09-23 00:00: 00 No 1mg metoprolol tartrate 25 mg tablet 09-23 00:00: 00 Yes 1mg Emiliano Sahu amoxicillin 500 mg capsule 07-13 00:00: 00 Yes 500mg Take 1 capsule by mouth 3 (three) times daily. [facility] traMADOL 50 mg tablet 07-13 00:00: 00 Yes 50mg Take 1 tablet by mouth every 6 (six) hours as needed for Pain (scale 4-6). [facility] ibuprofen 800 mg tablet 07-13 00:00: 00 Yes 800mg Take 1 tablet by mouth every 8 (eight) hours. [facility] tramadol hydrochlori de 50 MG Oral Tablet 05-02 19:27: 00 Yes 50 mg = 1 tab, PO, Q6H, PRN Pain, X 10 day, # 40 tab, 0 Refill(s) Raven Gibson Mylicon 05-01 19:00: 00 No Notes: (Same as: Mylicon) Raven Gibson Docusate 05-01 16:57: 00 No Notes: (Same as: Colace) (Do Not Crush) Raven Gibson Diphenhydra mine 05-01 16:57: 00 No Notes: (Same as: Benadryl) Raven Gibson ondansetron (ANES) 05-01 16:05: 00 No Route: IV, Drug form: INJ, ONCE, Stop date: 05/01/16 10:05:00 [employer] Raven Gibson glycopyrrol ate (ANES) 05-01 16:05: 00 No Route: IV, Drug form: INJ, ONCE, Stop date: 05/01/16 10:05:00 [employer] Raven Gibson neostigmine (ANES) 05-01 16:05: 00 No Route: IV, Drug form: INJ, ONCE, Stop date: 05/01/16 10:05:00 [employer] Raven Gibson Ondansetron 05-01 16:01: 00 No Notes: (Same as: Loni) MEDICATION WASTE Product Size: 4 mg Product Wasted: ___ mg Raven Gibson Morphine 05-01 16:01: 00 No Notes: (Same as:MORPhin e Sulfate) Raven Gibson Ketorolac 05-01 16:01: 00 No 4 days MEDICATION WASTE Product Size: 30 mg Product Wasted: ___ mg Raven Gibson Flumazenil 05-01 16:01: 00 No Notes: (Same as: Romazicon) Raven Gibson Naloxone 05-01 16:01: 00 No Notes: Same as Narcan Raven Gibson Calcium Chloride 0.0014 MEQ/ML / Potassium Chloride 0.004 MEQ/ML / Sodium Chloride 0.103 MEQ/ML / Sodium Lactate 0.028 MEQ/ML Injectable Solution 05-01 16:01: 00 No 1,000 mL, Rate: 125 ml/hr, Infuse over: 8 hr, Route: IV, Dosing Weight 75 kg, Total Volume: 1,000, Start date: 05/01/16 10:01:00 [employer], Duration: 30 day, Stop date: 05/31/16 10:00:00 [employer] Raven Gibson Labetalol 05-01 16:01: 00 No Notes: (Same as: Normodyne, Trandate) Push over 2 minutes Give bolus over 2-3 minutes. Raven Gibson acetaminoph en (ANES) (ANES) 05-01 15:38: 00 No Route: IV, Drug form: INJ, Start date: 05/01/16 9:38:00 [employer], Stop date: 05/01/16 10:38:00 [employer] Raven Gibson hydromorpho ne (ANES) 05-01 15:02: 00 No Route: IV, Drug form: INJ, ONCE, Stop date: 05/01/16 9:02:00 [employer] Raven Gibson lidocaine (ANES) 05-01 14:37: 00 No Route: IV, Drug form: INJ, ONCE, Stop date: 05/01/16 8:37:00 [employer] Raven Gibson propofol (ANES) 05-01 14:37: 00 No Route: IV, Drug form: INJ, ONCE, Stop date: 05/01/16 8:37:00 [employer] Raven Gibson midazolam ([facility]) 05-01 14:37: 00 No Route: IV, Drug form: SOLN, ONCE, Stop date: 05/01/16 8:37:00 [employer] Raven Gibson rocuronium ([facility]) 05-01 14:37: 00 No Route: IV, Drug form: INJ, ONCE, Stop date: 05/01/16 8:37:00 [employer] Raven Gibson metoclopram eda ([facility]) 05-01 14:37: 00 No Route: IV, Drug form: INJ, ONCE, Stop date: 05/01/16 8:37:00 [employer] Raven Gibson dexamethaso ne ([facility]) 05-01 14:37: 00 No Route: IV, Drug form: INJ, ONCE, Stop date: 05/01/16 8:37:00 [employer] Raven Gibson fentaNYL ([facility]) 05-01 14:37: 00 No Route: IV, Drug form: INJ, ONCE, Stop date: 05/01/16 8:37:00 [employer] Raven Gibson famotidine ([facility]) 05-01 14:22: 00 No Route: IV, Drug form: INJ, ONCE, Stop date: 05/01/16 8:22:00 [employer] Raven Gibson phenylephri ne ([facility]) 05-01 14:22: 00 No Route: IV, Drug form: INJ, ONCE, Stop date: 05/01/16 8:22:00 [employer] Raven Gibson LR 1000 mL INJ ([facility]) 05-01 13:35: 00 No Route: IV, Total Volume: 1,000, Start date: 05/01/16 7:35:00 [employer], Stop date: 05/01/16 8:35:00 [employer] Raven Gibson Calcium Chloride 0.0014 MEQ/ML / Potassium Chloride 0.004 MEQ/ML / Sodium Chloride 0.103 MEQ/ML / Sodium Lactate 0.028 MEQ/ML Injectable Solution 05-01 12:57: 00 No 1,000 mL, Rate: 25 ml/hr, Infuse over: 40 hr, Route: IV, Dosing Weight 74.091 kg, Total Volume: 1,000, Start date: 05/01/16 6:57:00 [employer], Duration: 30 day, Stop date: 05/31/16 6:56:00 [employer] Raven Gibson ceFAZolin 05-01 12:00: 00 No Notes: Same as: Ancef Raven Gibson BD Normal Saline Flush 05-01 12:00: 00 No Notes: (Same as: BD Posiflush) Raven Gibson Esomeprazol e 20 MG Enteric Coated Capsule [Nexium] 04-24 16:18: 00 Yes 20 mg = 1 cap, PO, Daily, 0 Refill(s) Raven Gibson ferrous sulfate 325 mg oral enteric coated tablet 04-24 16:18: 00 No 325 mg = 1 tab, PO, Daily, 0 Refill(s) Raven Gibson Sulfamethox azole 800 MG / Trimethopri m 160 MG Oral Tablet [Bactrim] 2015-03 00:52: 00 Yes 1 tab, PO, BID, X 7 day, # 14 tab, 0 Refill(s) Raven Gibson Motrin 2015-03 22:27: 00 No 800 mg, Route: PO, Drug form: TAB, ONCE, Dosing Weight 72.727, kg, Priority: STAT, Start date: 03/17/16 16:27:00 [employer], Stop date: 03/17/16 16:27:00 [employer] Raven Gibson Sodium Chloride 0.154 MEQ/ML Injectable Solution 2015-03 22:27: 00 No 1,000 mL, 2,000 ml/hr, Infuse Over: 30 minutes, Route: IV, ONCE, Priority: STAT, Dosing Weight 72.727 kg, Start date: 03/17/16 16:27:00 [employer], Duration: 1 doses or times, Stop date: 03/17/16 16:27:00 [employer] Raven Gibson Saline Flush 0.9% 2015-03 22:27: 00 No Notes: (Same as: BD Posiflush) Raven Gibson Cyclobenzap rine hydrochlori de 10 MG Oral Tablet [Flexeril] 08-02 16:02: 00 Yes 10 mg = 1 tab, PO, TID, PRN for spasm, X 10 day, # 30 tab, 0 Refill(s) Raven Gibson acetaminoph en-codeine #3 08-02 15:03: 00 No Notes: Do not exceed 4gm/day of acetaminop hen. (Same as: Tylenol with Codeine # 3) Raven Gibson cyclobenzap rine 08-02 15:03: 00 No Notes: (Same As: Flexeril) Troyinderjit candace Arthur Aspirin 325 MG Enteric Coated Tablet 04-08 15:00: 00 No Notes: (Do Not Crush) Do not crush or chew. Troyinderjit candace Arthur metoprolol tartrate 04-08 00:00: 00 No Notes: (Same as: Lopressor) Troyinderjit candace Gibson Saline Flush 0.9% 04-07 20:15: 00 No Notes: (Same as: BD Posiflush) Raven candace Frannie Sodium Chloride 0.154 MEQ/ML Injectable Solution 04-07 15:37: 00 No 1,000 mL, 1,000 ml/hr, Infuse Over: 1 hr, Route: IV, ONCE, Priority: STAT, Dosing Weight 80.455 kg, Start date: 04/07/15 9:37:00, Duration: 1 doses or times, Stop date: 04/07/15 9:37:00 Raven candace Gibson Nitroglycer in 0.4 MG Sublingual Tablet 04-07 13:25: 00 No Notes: (Same as:Nitroqu ick, Nitrostat) "Do Not Crush" Sublingual tablet Raven maria Arthur Aspirin 04-07 13:23: 00 No Notes: Take with food. Troyinderjit candace Gibson Saline Flush 0.9% 04-07 13:23: 00 No Notes: (Same as: BD Posiflush) Raven candace Gibson Miralax 11-06 23:38: 00 No Notes: Dissolve in 8 oz of water or juice. (Same as: Miralax) Raven Gibson Tylenol 11-06 23:35: 00 No Notes: Do not exceed 4 gm/day. (Same as: Tylenol) Raven Gibson ferrous sulfate 11-06 14:50: 00 No Notes: Give with food. "Do Not Crush" Raven Gibson nitroglycer in 0.4 mg sublingual tablet 11-06 01:34: 00 No Notes: (Same as:Nitroqu ick, Nitrostat) "Do Not Crush" Sublingual tablet Raven Gibson atropine 11-06 01:34: 00 No 0.5 mg, 5 mL, Route: IVP, Drug form: INJ, PRN, PRN Bradycardi a, Start date: 11/05/14 20:34:00, Duration: 30 day, Stop date: 12/05/14 20:33:00 Raven Gibson Sulfamethox azole 800 MG / Trimethopri m 160 MG Oral Tablet [Bactrim] 11-05 22:00: 00 No Notes: One DS tablet = trimethopr im 160mg + sulfametho xazole 800 mg Dose based on trimethopr im component On empty stomach with a glass of water. 1 hr before meals (Same As: Bactrim DS, Septra DS) Raven Gibson Ceftriaxone 11-05 20:52: 00 No 1 gm, Route: IVPB, Drug form: PDR/INJ, ONCE, Dosing Weight 71.364, kg, Priority: STAT, Start date: 11/05/14 15:52:00, Stop date: 11/05/14 15:52:00 Raven Gibson Ketorolac 11-05 20:39: 00 No 30 mg, Route: IVP, Drug form: INJ, ONCE, Dosing Weight 71.364, kg, Priority: STAT, Start date: 11/05/14 15:39:00, Stop date: 11/05/14 15:39:00 Raven Gibson Morphine 11-05 20:20: 00 No 2 mg, Route: IVP, Drug form: INJ, ONCE, Dosing Weight 71.364, kg, Priority: STAT, Start date: 11/05/14 15:20:00, Stop date: 11/05/14 15:20:00 Raven Gibson Saline Flush 0.9% 11-05 19:58: 00 No Notes: Same as: BD Posiflush Sterile Raven Gibson Aspirin 11-05 19:58: 00 No 324 mg, Route: PO, ONCE, Dosing Weight 71.364, kg, Priority: STAT, Start date: 11/05/14 14:58:00, Stop date: 11/05/14 14:58:00 Raven Gibson ferrous sulfate 325 mg oral enteric coated tablet 11-03 18:24: 00 Yes 325 mg = 1 tab, PO, Daily, # 30 tab, 0 Refill(s) Raven Gibson Acetaminoph en 300 MG / Codeine Phosphate 30 MG Oral Tablet [Tylenol with Codeine #3] 11-03 15:14: 00 No 1 tab, Route: PO, Drug Form: TAB, Dosing Weight 77, kg, ONCE, STAT, Start date: 11/03/14 10:14:00, Stop date: 11/03/14 10:14:00 Raven candace Frannie GI cocktail 11-03 13:51: 00 No Notes: G.I. Cocktail = antacid with simethicon e 22.5 mL - lidocaine viscous 7.5 mL Troyinderjit Alvarezann Morphine 11-03 13:51: 00 No Notes: (Same as:MORPhin e Sulfate) Raven candace Frannie Aspirin 11-03 13:50: 00 No Notes: Take with food. Raven maria Arthur Saline Flush 0.9% 11-03 13:50: 00 No Notes: (Same as: BD Posiflush) Raven Gibson ibuprofen 600 mg oral tablet 2012-03 00:41: 00 Yes Spencer Fayrweathe r 600 mg = 1 tab, PO, Q6H, as needed for fever, take with food, # 30 tab, 0 Refill(s)t emily with food Troyinderjit candace Gibson Tessalon Perles 100 mg oral capsule 2012-03 00:40: 00 Yes Spencer Fayrweathe r 100 mg = 1 cap, PO, TID, # 21 cap, 0 Refill(s) Troyinderjit candace Gibson ibuprofen 2012-03 00:19: 00 No Spencer Fayrweathe r 600 mg, 1 tab, Route: PO, Drug form: TAB, ONCE, Dosing Weight 72.727, kg, Priority: STAT, Start date: 03/07/13 18:19:00, Stop date: 03/07/13 18:19:00(S mrita as: Motrin) "Do Not Crush" Take with food. Raven Gibson Tylenol 2012-03 23:29: 00 No Spencer Fayrweathe r 975 mg, 3 tab, Route: PO, Drug form: TAB, ONCE, Dosing Weight 72.727, kg, Priority: STAT, Start date: 03/07/13 17:29:00, Stop date: 03/07/13 17:29:00Do not exceed 4 gm/day. (Same as: Tylenol) Troyinderjit candace Gibsno ondansetron 4 mg oral tablet, disintegrat ing 2012-03 21:40: 00 No Spencer Fayrweathe r 4 mg, 1 tab, Route: PO, Drug form: TABDIS, ONCE, Dosing Weight 72.727, kg, Priority: STAT, Start date: 03/07/13 15:40:00, Stop date: 03/07/13 15:40:00(S mirta as: Zofran ODT) Troyinderjit candace Gibson Zithromax Z-Onel 250 mg oral tablet 2012-03 17:57: 00 Yes Carol A Poffinbarg er 250 mg = 1 tab, PO, Daily, TAKE 2 TABLETS ON DAY 1; TAKE 1 TABLET ON DAYS 2 - 5, # 1 Pack, 0 Refill(s)T EMILY 2 TABLETS ON DAY 1; TAKE 1 TABLET ON DAYS 2 - 5 Troyinderjit candace Gibson Naprosyn 500 mg oral tablet 2012-03 17:57: 00 Yes Carol A Poffinbarg er 500 mg = 1 tab, PO, BID, for pain, # 20 tab, 0 Refill(s) Raven Gibson Zofran ODT 4 mg oral tablet, disintegrat ing 2012-03 17:57: 00 Yes Carol A Poffinbarg er 4 mg = 1 tab, PO, BID, Nausea and Vomiting, Dissolve tab under tongue, # 10 tab, 0 Refill(s)D issolve tab under tongue Raven Gibson Tessalon 200 mg oral capsule 2012-03 17:56: 00 Yes Carol A Poffinbarg er 200 mg = 1 cap, PO, TID, # 21 cap, 0 Refill(s) Raven Gibson morphine Sulfate 2012-03 15:37: 00 No Carol A Poffinbarg er 4 mg, 1 mL, Route: IVP, Drug form: INJ, ONCE, Dosing Weight 72.727, kg, Priority: STAT, Start date: 03/07/13 9:37:00, Stop date: 03/07/13 9:37:00( me as:MORPhin e Sulfate) Raven Gibson Zofran 2012-03 15:37: 00 No Carol A Poffinbarg er 4 mg, 2 mL, Route: IVP, Drug form: INJ, ONCE, Dosing Weight 72.727, kg, Priority: STAT, Start date: 03/07/13 9:37:00, Stop date: 03/07/13 9:37:00([facility] as: Zofran) Raven Gibson ceftriaxone + Sodium Chloride 0.9% IV 100 mL 2012-03 15:37: 00 No Carol A Poffinbarg er 1 gm, Route: IVPB, Drug form: PDR/INJ, ONCE, Dosing Weight 72.727, kg, Priority: STAT, Start date: 03/07/13 9:37:00, Stop date: 03/07/13 9:37:00([facility] As: Rocephin). Use with 100ml NS mini-bag PLUS and infuse over 30 min Raven Gibson Sodium Chloride 0.9% (Bolus) IV 1,000 mL 2012-03 15:37: 00 No Carol A Poffinbarg er 1,000 mL, Rate: 1,000 ml/hr, Infuse over: 1 hr, Route: IV, Dosing Weight 72.727 kg, Total Volume: 1,000, Priority: STAT, Start date: 03/07/13 9:37:00, Duration: 1 doses or times, Stop date: 03/07/13 10:36:00 Troyinderjit candace Gibson Saline Flush 0.9% 2012-03 15:37: 00 No Carol A Poffinbarg er 5 mL, Route: IVP, Drug Form: INJ, Dosing Weight 72.727, kg, PRN, PRN Line Flush, Start date: 03/07/13 9:37:00, Duration: 30 day, Stop date: 04/06/13 9:36:00([facility] as: BD Posiflush) Raven Gibson acetaminoph en 2012-03 15:19: 00 No Nash Schmid Cesta 1,000 mg, 2 tab, Route: PO, Drug form: TAB, ONCE, Dosing Weight 72.727, kg, Start date: 03/07/13 9:19:00, Stop date: 03/07/13 9:19:00Max acetaminop hen 4000 mg/day (4 gm/day). (Same as: Tylenol Extra Strength) Raven Gibson Ultram 50 mg oral tablet 04-04 08:09: 30 Yes Ar Blood Eliezer II 50 mg, 1 tab, PO, Q4H, PRN, 20 tab, pain, Substituti on Allowed Raven Gibson amoxicillin 500 mg oral tablet 04-04 08:09: 15 Yes Ar Blood Eliezer II 500 mg, 1 tab, PO, TID, 30 tab, Substituti on Allowed, TAB Raven Gibson Vital Signs Vital Name Observation Time Observation Value Comments Jayden dai Systolic blood pressure 2023-07-26 02:30:00 132 mm[Hg] [facility] Diastolic blood pressure 2023-07-26 02:30:00 91 mm[Hg] [facility] Heart rate 2023-07-26 02:30:00 62 /min [facility] Respiratory rate 2023-07-26 02:30:00 16 /min [facility] Oxygen saturation in Arterial blood by Pulse oximetry 2023-07-26 02:30:00 100 /min [facility] Body temperature 2023-07-26 02:27:00 36.78 Kristy [facility] Body height 2023-07-26 00:39:00 162.6 cm [facility] Body weight 2023-07-26 00:39:00 90.719 kg [facility] BMI 2023-07-26 00:39:00 34.33 kg/m2 [facility] Systolic blood pressure 2023-03-09 02:05:00 130 mm[Hg] [facility] Diastolic blood pressure 2023-03-09 02:05:00 91 mm[Hg] [facility] Heart rate 2023-03-09 02:05:00 79 /min [facility] Body temperature 2023-03-09 02:05:00 37.39 Kristy [facility] Respiratory rate 2023-03-09 02:05:00 20 /min [facility] Body height 2023-03-09 02:05:00 165.1 cm [facility] Body weight 2023-03-09 02:05:00 82.146 kg [facility] BMI 2023-03-09 02:05:00 30.14 kg/m2 [facility] Oxygen saturation in Arterial blood by Pulse oximetry 2023-03-09 02:05:00 100 /min [facility] Systolic blood pressure 2022-12-06 11:13:00 147 mm[Hg] [facility] Diastolic blood pressure 2022-12-06 11:13:00 90 mm[Hg] [facility] Heart rate 2022-12-06 11:13:00 56 /min [facility] Body temperature 2022-12-06 11:13:00 36.56 Kristy [facility] Respiratory rate 2022-12-06 11:13:00 16 /min [facility] Body height 2022-12-06 11:13:00 165.1 cm [facility] Body weight 2022-12-06 11:13:00 84.823 kg [facility] BMI 2022-12-06 11:13:00 31.12 kg/m2 [facility] Oxygen saturation in Arterial blood by Pulse oximetry 2022-12-06 11:13:00 98 /min [facility] Systolic blood pressure 2022-12-05 01:17:00 132 mm[Hg] [facility] Diastolic blood pressure 2022-12-05 01:17:00 89 mm[Hg] [facility] Heart rate 2022-12-05 01:17:00 64 /min [facility] Body temperature 2022-12-05 01:17:00 36.89 Kristy [facility] Respiratory rate 2022-12-05 01:17:00 16 /min [facility] Body height 2022-12-05 01:17:00 165.1 cm [facility] Body weight 2022-12-05 01:17:00 84.823 kg [facility] BMI 2022-12-05 01:17:00 31.12 kg/m2 [facility] Oxygen saturation in Arterial blood by Pulse oximetry 2022-12-05 01:17:00 100 /min [facility] Systolic blood pressure 2022-11-23 07:00:00 143 mm[Hg] [facility] Diastolic blood pressure 2022-11-23 07:00:00 96 mm[Hg] [facility] Heart rate 2022-11-23 07:00:00 55 /min [facility] Body temperature 2022-11-23 07:00:00 37.11 Kristy [facility] Respiratory rate 2022-11-23 07:00:00 19 /min [facility] Oxygen saturation in Arterial blood by Pulse oximetry 2022-11-23 07:00:00 100 /min [facility] Body height 2022-11-23 03:52:00 165.1 cm [facility] Body weight 2022-11-23 03:52:00 72.576 kg [facility] BMI 2022-11-23 03:52:00 26.63 kg/m2 [facility] Systolic blood pressure 2022-07-19 09:11:00 152 mm[Hg] [facility] Diastolic blood pressure 2022-07-19 09:11:00 100 mm[Hg] [facility] Heart rate 2022-07-19 09:11:00 70 /min [facility] Body temperature 2022-07-19 09:11:00 36.94 Kristy [facility] Respiratory rate 2022-07-19 09:11:00 18 /min [facility] Body height 2022-07-19 09:11:00 165.1 cm [facility] Body weight 2022-07-19 09:11:00 90.719 kg [facility] BMI 2022-07-19 09:11:00 33.28 [facility] 2022-04-06 15:13:00 122 mm[Hg] [facility] Diastolic blood pressure 2022-04-06 15:13:00 85 mm[Hg] [facility] Heart rate 2022-04-06 15:13:00 77 /[facility] Body [facility] 2022-04-06 15:13:00 36.61 Kristy [facility] Respiratory rate 2022-04-06 15:13:00 22 /min [facility] Body height 2022-04-06 15:13:00 162.6 cm [facility] Body weight 2022-04-06 15:13:00 90.719 kg [facility] BMI 2022-04-06 15:13:00 34.33 kg/m2 [facility] Oxygen saturation in Arterial blood by Pulse oximetry 2022-04-06 15:13:00 98 /min [facility] Systolic blood pressure 2021-10-18 18:30:00 135 mm[Hg] [facility] Diastolic blood pressure 2021-10-18 18:30:00 92 mm[Hg] [facility] Heart rate 2021-10-18 18:30:00 50 /[facility] 2021-10-18 18:30:00 13 /min [facility] Oxygen saturation in Arterial blood by Pulse oximetry 2021-10-18 18:30:00 100 /min [facility] Body temperature 2021-10-18 15:30:00 37.11 [facility] [facility] Body height 2021-10-18 15:30:00 [facility] 2021-10-18 15:30:00 88.451 kg [facility] BMI 2021-10-18 15:30:00 32.45 kg/m2 [facility] Systolic blood pressure 2021-09-24 18:30:00 112 mm[Hg] [facility] Diastolic blood pressure 2021-09-24 18:30:00 79 mm[Hg] [facility] Heart rate 2021-09-24 18:30:00 60 /min [facility] Respiratory rate 2021-09-24 18:30:00 12 /min [facility] Oxygen saturation in Arterial blood by Pulse oximetry 2021-09-24 18:30:00 100 /min [facility] Body temperature 2021-09-24 16:20:00 36.56 Kristy [facility] Body height 2021-09-24 16:20:00 165.1 cm [facility] Body weight 2021-09-24 16:20:00 88.451 kg [facility] BMI 2021-09-24 16:20:00 32.45 kg/m2 [facility] Systolic blood pressure 2021-04-10 21:57:00 132 mm[Hg] [facility] Diastolic blood pressure 2021-04-10 21:57:00 92 mm[Hg] [facility] Heart rate 2021-04-10 21:57:00 71 /min [facility] Respiratory rate 2021-04-10 21:57:00 16 /min [facility] Oxygen saturation in Arterial blood by Pulse oximetry 2021-04-10 21:57:00 100 /min [facility] Body temperature 2021-04-10 18:40:00 37.11 Kristy [facility] Body height 2021-04-10 18:40:00 162.6 cm [facility] Body weight 2021-04-10 18:40:00 90.719 kg [facility] BMI 2021-04-10 18:40:00 34.33 kg/m2 [facility] Systolic blood pressure 2021-04-03 07:03:00 149 mm[Hg] [facility] Diastolic blood pressure 2021-04-03 07:03:00 97 mm[Hg] [facility] Heart rate 2021-04-03 07:03:00 82 /min [facility] Body temperature 2021-04-03 07:03:00 37.11 Kristy [facility] Respiratory rate 2021-04-03 07:03:00 18 /min [facility] Body height 2021-04-03 07:03:00 162.6 cm [facility] Body weight 2021-04-03 07:03:00 90.719 kg [facility] BMI 2021-04-03 07:03:00 34.33 kg/m2 [facility] Oxygen saturation in Arterial blood by Pulse oximetry 2021-04-03 07:03:00 98 /min [facility] Systolic blood pressure 2020-09-11 04:00:00 135 mm[Hg] [facility] Diastolic blood pressure 2020-09-11 04:00:00 70 mm[Hg] [facility] Heart rate 2020-09-11 04:00:00 61 /min [facility] Res[facility] rate 2020-09-11 04:00:00 12 /min [facility] Oxygen saturation in Arterial blood by Pulse oximetry 2020-09-11 04:00:00 99 /min [facility] Body temperature 2020-09-11 00:50:00 37.06 Kristy [facility] Body height 2020-09-11 00:50:00 165.1 cm [facility] Body weight 2020-09-11 00:50:00 86.183 kg [facility] BMI 2020-09-11 00:50:00 31.62 kg/m2 [facility] Heart rate 2020-05-05 22:41:00 92 /min [facility] Systolic blood pressure 2020-05-05 21:09:00 109 mm[Hg] [facility] Diastolic blood pressure 2020-05-05 21:09:00 77 mm[Hg] [facility] Body temperature 2020-05-05 21:09:00 37.89 Kristy [facility] Respiratory rate 2020-05-05 21:09:00 18 /min [facility] Body weight 2020-05-05 21:09:00 86.183 kg [facility] BMI 2020-05-05 21:09:00 32.61 kg/m2 [facility] Oxygen saturation in Arterial blood by Pulse oximetry 2020-05-05 21:09:00 100 /min [facility] Heart rate 2020-05-05 22:41:00 92 /min [facility] Systolic blood pressure 2020-05-05 21:09:00 109 mm[Hg] [facility] Diastolic blood pressure 2020-05-05 21:09:00 77 mm[Hg] [facility] Body temperature 2020-05-05 21:09:00 37.89 Kristy [facility] Respiratory rate 2020-05-05 21:09:00 18 /min [facility] Body weight 2020-05-05 21:09:00 86.183 kg [facility] BMI 2020-05-05 21:09:00 32.61 kg/m2 [facility] Oxygen saturation in Arterial blood by Pulse oximetry 2020-05-05 21:09:00 100 /min [facility] Systolic blood pressure 2019-10-04 23:45:19 136 mm[Hg] [facility] Diastolic blood pressure 2019-10-04 23:45:19 87 mm[Hg] [facility] Heart rate 2019-10-04 23:45:19 69 /min [facility] Respiratory rate 2019-10-04 23:45:19 16 /min [facility] Oxygen saturation in Arterial blood by Pulse oximetry 2019-10-04 23:45:19 100 /min [facility] Body temperature 2019-10-04 21:25:00 36.61 Kristy [facility] Body height 2019-10-04 21:25:00 162.6 cm [facility] Body weight 2019-10-04 21:25:00 88.905 kg [facility] BMI 2019-10-04 21:25:00 33.64 kg/m2 [facility] Systolic blood pressure 2019-10-04 23:45:19 136 mm[Hg] [place] [facility] Diastolic blood pressure 2019-10-04 23:45:19 87 mm[Hg] [place] [facility] Heart rate 2019-10-04 23:45:19 69 /min [facility] Respiratory rate 2019-10-04 23:45:19 16 /min [facility] Oxygen saturation in Arterial blood by Pulse oximetry 2019-10-04 23:45:19 100 /min [facility] Body temperature 2019-10-04 21:25:00 36.61 Kristy [facility] Body height 2019-10-04 21:25:00 162.6 cm [facility] Body weight 2019-10-04 21:25:00 88.905 kg [facility] BMI 2019-10-04 21:25:00 33.64 kg/m2 [facility] BP Systolic 2024-10-23 09:19:00 127 mm[Hg] [facility] BP Diastolic 2024-10-23 09:19:00 86 mm[Hg] Xander phen [facility] Weight Measured 2024-10-23 09:19:00 198.00 pounds Emiliano [facility] Height Measured 2024-10-23 09:19:00 65.00 inches Emiliano [facility] [place] Body Temperature 2024-10-23 09:19:00 97.50 degrees Emiliano [facility] Heart Rate 2024-10-23 09:19:00 70.00 /min [facility] Respiratory Rate 2024-10-23 09:19:00 18.00 /min Emiliano [facility] BP Systolic 2024-10-17 08:08:00 128 mm[Hg] [facility] BP Diastolic 2024-10-17 08:08:00 82 mm[Hg] Xander phen [facility] Weight Measured 2024-10-17 08:08:00 196.40 pounds Emiliano [facility] Height Measured 2024-10-17 08:08:00 65.00 inches Emiliano [facility] Body Temperature 2024-10-17 08:08:00 97.50 degrees Emiliano [facility] Heart Rate 2024-10-17 08:08:00 65.00 /min [facility] Respiratory Rate 2024-10-17 08:08:00 Emiliano [facility] BP Systolic 2024-08-20 17:38:00 129 mm[Hg] [facility] BP Diastolic 2024-08-20 17:38:00 71 mm[Hg] Xander phen [facility] Weight Measured 2024-08-20 17:38:00 201.20 pounds Emiliano [facility] Height Measured 2024-08-20 17:38:00 65.00 inches Emiliano [facility] Body Temperature 2024-08-20 17:38:00 98.50 degrees Emiliano [facility] Heart Rate 2024-08-20 17:38:00 68.00 /min [facility] Respiratory Rate 2024-08-20 17:38:00 18.00 /min Emiliano [facility] BP Systolic 2024-03-05 10:16:00 126 mm[Hg] [facility] BP Diastolic 2024-03-05 10:16:00 82 mm[Hg] Xander phen [facility] Weight Measured 2024-03-05 10:16:00 196.40 pounds Emiliano [facility] Height Measured 2024-03-05 10:16:00 65.00 inches Emiliano [facility] Body Temperature 2024-03-05 10:16:00 97.70 degrees Emiliano [facility] Heart Rate 2024-03-05 10:16:00 64.00 /min [facility] Respiratory Rate 2024-03-05 10:16:00 18.00 /min Emiliano [facility] BP Systolic 2023-04-26 09:21:00 116 mm[Hg] [facility] BP Diastolic 2023-04-26 09:21:00 84 mm[Hg] Xander phen [facility] Weight Measured 2023-04-26 09:21:00 181.40 pounds Emiliano [facility] Height Measured 2023-04-26 09:21:00 65.00 inches Emiliano [facility] Body Temperature 2023-04-26 09:21:00 97.60 degrees Emiliano [facility] Heart Rate 2023-04-26 09:21:00 67.00 /min [facility] Respiratory Rate 2023-04-26 09:21:00 Emiliano [facility] BP Systolic 2023-03-06 10:04:00 151 mm[Hg] [facility] BP Diastolic 2023-03-06 10:04:00 111 mm[Hg] Xander phen [facility] Weight Measured 2023-03-06 10:04:00 179.00 pounds Emiliano [facility] Height Measured 2023-03-06 10:04:00 65.00 inches Emiliano [facility] Body Temperature 2023-03-06 10:04:00 98.20 degrees Emiliano [facility] Heart Rate 2023-03-06 10:04:00 63.00 /min [facility] Respiratory Rate 2023-03-06 10:04:00 16.00 /min Emiliano [facility] BP Systolic 2023-03-06 10:00:00 151 mm[Hg] [facility] BP Diastolic 2023-03-06 10:00:00 111 mm[Hg] Xander phen [facility] Weight Measured 2023-03-06 10:00:00 179.00 pounds Emiliano [facility] Height Measured 2023-03-06 10:00:00 65.00 inches Emiliano [facility] Body Temperature 2023-03-06 10:00:00 98.20 degrees Emiliano [facility] Heart Rate 2023-03-06 10:00:00 63.00 /min [facility] Respiratory Rate 2023-03-06 10:00:00 16.00 /min Emiliano [facility] BP Systolic 2022-12-06 14:51:00 114 mm[Hg] [facility] BP Diastolic 2022-12-06 14:51:00 69 mm[Hg] Xander phen [facility] Weight Measured 2022-12-06 14:51:00 180.20 pounds Emiliano [facility] Height Measured 2022-12-06 14:51:00 65.00 inches Emiliano [facility] Body Temperature 2022-12-06 14:51:00 98.70 degrees Emiliano [facility] Heart Rate 2022-12-06 14:51:00 67.00 /min [facility] Respiratory Rate 2022-12-06 14:51:00 18.00 /min Emiliano [facility] BP Systolic 2022-11-29 14:27:00 122 mm[Hg] [facility] BP Diastolic 2022-11-29 14:27:00 77 mm[Hg] Xander phen [facility] Weight Measured 2022-11-29 14:27:00 180.00 pounds Emiliano [facility] Height Measured 2022-11-29 14:27:00 65.00 inches Emiliano [facility] Body Temperature 2022-11-29 14:27:00 98.00 degrees Emiliano [facility] Heart Rate 2022-11-29 14:27:00 78.00 /min [facility] Respiratory Rate 2022-11-29 14:27:00 18.00 /min Emiliano [facility] BP Systolic 2022-08-22 16:33:00 114 mm[Hg] [facility] BP Diastolic 2022-08-22 16:33:00 86 mm[Hg] Xander phen [facility] Weight Measured 2022-08-22 16:33:00 190.00 pounds Emiliano [facility] Height Measured 2022-08-22 16:33:00 65.00 inches Emiliano [facility] Body Temperature 2022-08-22 16:33:00 98.30 degrees Emiliano [facility] Heart Rate 2022-08-22 16:33:00 103.00 /min [facility] Respiratory Rate 2022-08-22 16:33:00 17.00 /min Emiliano [facility] BP Systolic 2022-06-15 09:27:00 128 mm[Hg] Step [facility] BP Diastolic 2022-06-15 09:27:00 82 mm[Hg] Xander phen [facility] Weight Measured 2022-06-15 09:27:00 201.40 pounds Emiliano [facility] Height Measured 2022-06-15 09:27:00 65.00 inches Emiliano [facility] Body Temperature 2022-06-15 09:27:00 97.30 degrees Emiliano [facility] Heart Rate 2022-06-15 09:27:00 73.00 /min [facility] Respiratory Rate 2022-06-15 09:27:00 Emiliano [facility] BP Systolic 2022-04-25 08:17:00 123 mm[Hg] Step [facility] BP Diastolic 2022-04-25 08:17:00 81 mm[Hg] Xander phen [facility] Weight Measured 2022-04-25 08:17:00 207.00 pounds Emiliano [facility] Height Measured 2022-04-25 08:17:00 65.00 inches Emiliano [facility] Body Temperature 2022-04-25 08:17:00 97.00 degrees Emiliano [facility] Heart Rate 2022-04-25 08:17:00 87.00 /min [facility] Respiratory Rate 2022-04-25 08:17:00 25.00 /min Emiliano [facility] BP Systolic 2022-04-12 09:38:00 130 mm[Hg] Step [facility] BP Diastolic 2022-04-12 09:38:00 90 mm[Hg] Xander bowman [facility] Weight Measured 2022-04-12 09:38:00 205.20 pounds Emiliano [facility] Height Measured 2022-04-12 09:38:00 65.00 inches Emiliano [facility] Body Temperature 2022-04-12 09:38:00 97.40 degrees Emiliano [facility] Heart Rate 2022-04-12 09:38:00 75.00 /min Anna [facility] Respiratory Rate 2022-04-12 09:38:00 18.00 /min Emiliano [facility] BP Systolic 2022-02-08 10:30:00 113 mm[Hg] BP Diastolic 2022-02-08 10:30:00 78 mm[Hg] Weight Measured 2022-02-08 10:30:00 199.60 pounds Height Measured 2022-02-08 10:30:00 65.00 inches Body Temperature 2022-02-08 10:30:00 97.10 degrees Heart Rate 2022-02-08 10:30:00 92.00 /min Respiratory Rate 2022-02-08 10:30:00 BP Systolic 2022-02-02 16:41:00 BP Diastolic 2022-02-02 [...] 16.00 /min Systolic (mm Hg) 2018-04-11 01:42:00 [facility] Diastolic (mm Hg) 2018-04-11 01:42:00 [facility] Heart Rate 2018-04-11 01:42:00 [facility] Respitory Rate 2018-04-11 01:42:00 [facility] Weight 2018-04-10 23:32:00 [facility] Systolic (mm Hg) 2018-04-10 23:32:00 [facility] Diastolic (mm Hg) 2018-04-10 23:32:00 [facility] Respitory Rate 2018-04-10 23:32:00 [facility] Heart Rate 2018-04-10 23:32:00 [facility] Temperature Oral (F) 2018-04-10 23:32:00 98.4 F [facility] Systolic (mm Hg) 2018-03-29 23:00:00 [facility] Diastolic (mm Hg) 2018-03-29 23:00:00 [facility] Respitory Rate 2018-03-29 23:00:00 [facility] Heart Rate 2018-03-29 23:00:00 [facility] Weight 2018-03-29 20:56:00 [facility] BMI Calculated 2018-03-29 20:56:00 [facility] Height 2018-03-29 20:56:00 162.56 cm [facility] Systolic (mm Hg) 2018-03-29 20:56:00 [facility] Diastolic (mm Hg) 2018-03-29 20:56:00 [facility] Heart Rate 2018-03-29 20:56:00 [facility] Respitory Rate 2018-03-29 20:56:00 [facility] Temperature Oral (F) 2018-03-29 20:56:00 98.9 F [facility] BP Systolic 2018-03-29 11:00:00 118 mm[Hg] BP [...] 09:02:00 16.00 /min Heart Rate 2017-11-17 06:13:00 [facility] Systolic (mm Hg) 2017-11-17 06:13:00 [facility] Diastolic (mm Hg) 2017-11-17 06:13:00 [facility] Temperature Oral (F) 2017-11-17 06:13:00 98 F [facility] Respitory Rate 2017-11-17 06:13:00 [facility] Heart Rate 2017-11-17 05:22:00 [facility] Respitory Rate 2017-11-17 05:22:00 [facility] Systolic (mm Hg) 2017-11-17 05:22:00 [facility] Diastolic (mm Hg) 2017-11-17 05:22:00 [facility] Weight 2017-11-17 02:49:00 [facility] Heart Rate 2017-11-17 02:49:00 [facility] Respitory Rate 2017-11-17 02:49:00 [facility] Temperature Oral (F) 2017-11-17 02:49:00 98 F [facility] Systolic (mm Hg) 2017-11-17 02:49:00 [facility] Diastolic (mm Hg) 2017-11-17 02:49:00 [facility] Temperature Oral (F) 2017-10-31 23:23:00 98.4 F [facility] Systolic (mm Hg) 2017-10-31 23:23:00 [facility] Diastolic (mm Hg) 2017-10-31 23:23:00 [facility] Respitory Rate 2017-10-31 23:23:00 [facility] Temperature Oral (F) 2017-10-31 21:50:00 98.8 F [facility] Systolic (mm Hg) 2017-10-31 21:50:00 [facility] Diastolic (mm Hg) 2017-10-31 21:50:00 [facility] Respitory Rate 2017-10-31 21:50:00 [facility] Systolic (mm Hg) 2017-10-31 21:20:00 [facility] Diastolic (mm Hg) 2017-10-31 21:20:00 [facility] Respitory Rate 2017-10-31 21:20:00 [facility] BMI Calculated 2017-10-31 20:04:00 [facility] Weight 2017-10-31 20:04:00 [facility] Height 2017-10-31 20:04:00 162.56 cm [facility] Temperature Oral (F) 2017-10-31 20:04:00 99.6 F [facility] Heart Rate 2017-10-31 20:04:00 [facility] Systolic (mm Hg) 2017-10-26 07:51:00 [facility] Diastolic (mm Hg) 2017-10-26 07:51:00 [facility] Respitory Rate 2017-10-26 07:51:00 [facility] Heart Rate 2017-10-26 07:51:00 [facility] Temperature Oral (F) 2017-10-26 07:51:00 98.2 F [facility] Weight 2017-10-26 00:18:00 [facility] Respitory Rate 2017-10-26 00:18:00 [facility] Heart Rate 2017-10-26 00:18:00 [facility] Temperature Oral (F) 2017-10-26 00:18:00 98.2 F [facility] Systolic (mm Hg) 2017-10-26 00:18:00 [facility] Diastolic (mm Hg) 2017-10-26 00:18:00 [facility] Heart Rate 2017-10-13 17:16:00 [facility] Respitory Rate 2017-10-13 17:16:00 [facility] Systolic (mm Hg) 2017-10-13 17:16:00 [facility] Diastolic (mm Hg) 2017-10-13 17:16:00 [facility] Temperature Oral (F) 2017-10-13 17:16:00 98.2 F [facility] Temperature Oral (F) 2017-10-13 15:29:00 98.2 F [facility] Heart Rate 2017-10-13 15:29:00 [facility] Systolic (mm Hg) 2017-10-13 15:29:00 [facility] Diastolic (mm Hg) 2017-10-13 15:29:00 [facility] Respitory Rate 2017-10-13 15:29:00 [facility] Weight 2017-10-13 14:33:00 [facility] BMI Calculated 2017-10-13 14:33:00 [facility] Height 2017-10-13 14:33:00 162.56 cm [facility] Systolic (mm Hg) 2017-10-13 14:33:00 [facility] Diastolic (mm Hg) 2017-10-13 14:33:00 [facility] Heart Rate 2017-10-13 14:33:00 [facility] Respitory Rate 2017-10-13 14:33:00 [facility] Temperature Oral (F) 2017-10-13 14:33:00 98.4 F [facility] Heart Rate 2016-05-02 18:54:00 [facility] Systolic (mm Hg) 2016-05-02 18:54:00 [facility] Diastolic (mm Hg) 2016-05-02 18:54:00 [facility] Respitory Rate 2016-05-02 18:54:00 [facility] Temperature Oral (F) 2016-05-02 18:54:00 98.2 F [facility] Systolic (mm Hg) 2016-05-02 13:02:00 [facility] Diastolic (mm Hg) 2016-05-02 13:02:00 [facility] Heart Rate 2016-05-02 13:02:00 [facility] Respitory Rate 2016-05-02 13:02:00 [facility] Temperature Oral (F) 2016-05-02 13:02:00 98.9 F [facility] Systolic (mm Hg) 2016-05-02 11:09:00 [facility] Diastolic (mm Hg) 2016-05-02 11:09:00 [facility] Heart Rate 2016-05-02 11:09:00 [facility] Respitory Rate 2016-05-02 11:09:00 [facility] Temperature Oral (F) 2016-05-02 11:09:00 98.2 F [facility] BMI Calculated 2016-05-01 13:16:00 [facility] Weight 2016-05-01 13:16:00 [facility] Height 2016-04-24 16:15:00 162.56 cm [facility] Respitory Rate 2016-03-18 00:41:00 [facility] Systolic (mm Hg) 2016-03-18 00:41:00 [facility] Diastolic (mm Hg) 2016-03-18 00:41:00 [facility] Temperature Oral (F) 2016-03-18 00:41:00 98.7 F [facility] Heart Rate 2016-03-18 00:41:00 [facility] Weight 2016-03-17 22:25:00 [facility] BMI Calculated 2016-03-17 22:25:00 [facility] Height 2016-03-17 22:25:00 162.56 cm [facility] Temperature Oral (F) 2016-03-17 22:25:00 102.4 F [facility] Systolic (mm Hg) 2016-03-17 22:25:00 [facility] Diastolic (mm Hg) 2016-03-17 22:25:00 [facility] Heart Rate 2016-03-17 22:25:00 [facility] Respitory Rate 2016-03-17 22:25:00 [facility] Temperature Oral (F) 2015-08-03 15:47:00 98.1 F [facility] Respitory Rate 2015-08-03 15:47:00 [facility] Systolic (mm Hg) 2015-08-03 15:47:00 [facility] Diastolic (mm Hg) 2015-08-03 15:47:00 [facility] Heart Rate 2015-08-03 15:47:00 [facility] Systolic (mm Hg) 2015-08-03 14:34:00 [facility] Diastolic (mm Hg) 2015-08-03 14:34:00 [facility] Height 2015-08-03 14:34:00 165.1 cm [facility] Heart Rate 2015-08-03 14:34:00 [facility] Respitory Rate 2015-08-03 14:34:00 [facility] BMI Calculated 2015-08-03 14:34:00 [facility] Weight 2015-08-03 14:34:00 [facility] Temperature Oral (F) 2015-08-03 14:34:00 98.1 F [facility] Respitory Rate 2015-04-08 21:27:00 [facility] Systolic (mm Hg) 2015-04-08 21:27:00 [facility] Diastolic (mm Hg) 2015-04-08 21:27:00 [facility] Heart Rate 2015-04-08 21:27:00 [facility] Weight 2015-04-08 19:07:00 [facility] Respitory Rate 2015-04-08 17:49:00 [facility] Heart Rate 2015-04-08 17:49:00 [facility] Systolic (mm Hg) 2015-04-08 17:49:00 [facility] Diastolic (mm Hg) 2015-04-08 17:49:00 [facility] Heart Rate 2015-04-08 13:34:00 [facility] Respitory Rate 2015-04-08 13:34:00 [facility] Systolic (mm Hg) 2015-04-08 13:34:00 [facility] Diastolic (mm Hg) 2015-04-08 13:34:00 [facility] Temperature Oral (F) 2015-04-08 10:00:00 97.5 F [facility] Temperature Oral (F) 2015-04-08 06:00:00 97.9 F [facility] Temperature Oral (F) 2015-04-08 02:00:00 98.6 F [facility] BMI Calculated 2015-04-07 23:28:00 [facility] Weight 2015-04-07 23:28:00 [facility] Height 2015-04-07 23:28:00 165.1 cm [facility] Weight 2015-04-07 13:01:00 [facility] BMI Calculated 2015-04-07 13:01:00 [facility] Height 2015-04-07 13:01:00 165.1 cm [facility] Respitory Rate 2014-11-07 17:53:00 [facility] Systolic (mm Hg) 2014-11-07 17:53:00 [facility] Diastolic (mm Hg) 2014-11-07 17:53:00 [facility] Heart Rate 2014-11-07 17:53:00 [facility] Temperature Oral (F) 2014-11-07 17:53:00 98.6 F [facility] Systolic (mm Hg) 2014-11-07 12:53:00 [facility] Diastolic (mm Hg) 2014-11-07 12:53:00 [facility] Heart Rate 2014-11-07 12:53:00 [facility] Respitory Rate 2014-11-07 12:53:00 [facility] Temperature Oral (F) 2014-11-07 12:53:00 98.9 F [facility] Systolic (mm Hg) 2014-11-07 09:00:00 [facility] Diastolic (mm Hg) 2014-11-07 09:00:00 [facility] Temperature Oral (F) 2014-11-07 09:00:00 98.1 F [facility] Heart Rate 2014-11-07 09:00:00 [facility] Respitory Rate 2014-11-07 09:00:00 [facility] BMI Calculated 2014-11-05 19:27:00 [facility] Weight 2014-11-05 19:27:00 [facility] Height 2014-11-05 19:27:00 165.1 cm [facility] Temperature Oral (F) 2014-11-03 18:30:00 98.0 F [facility] Systolic (mm Hg) 2014-11-03 18:30:00 [facility] Diastolic (mm Hg) 2014-11-03 18:30:00 [facility] Respitory Rate 2014-11-03 18:30:00 [facility] Temperature Oral (F) 2014-11-03 17:20:00 98.2 F [facility] Respitory Rate 2014-11-03 17:20:00 [facility] Systolic (mm Hg) 2014-11-03 17:20:00 [facility] Diastolic (mm Hg) 2014-11-03 17:20:00 [facility] Systolic (mm Hg) 2014-11-03 15:30:00 [facility] Diastolic (mm Hg) 2014-11-03 15:30:00 [facility] Respitory Rate 2014-11-03 15:30:00 [facility] Heart Rate 2014-11-03 13:34:00 [facility] Weight 2014-11-03 13:34:00 [facility] Temperature Oral (F) 2014-11-03 13:34:00 98.2 F [facility] Diastolic (mm Hg) 2013-03-08 01:37:00 [facility] Heart Rate 2013-03-08 01:37:00 [facility] Temperature Oral (F) 2013-03-08 01:37:00 100.1 F [facility] Systolic (mm Hg) 2013-03-08 01:37:00 [facility] Respitory Rate 2013-03-08 01:37:00 [facility] Temperature Oral (F) 2013-03-08 00:54:00 102.8 F [facility] Temperature Oral (F) 2013-03-08 00:22:00 103.1 F [facility] Systolic (mm Hg) 2013-03-07 23:25:00 [facility] Respitory Rate 2013-03-07 23:25:00 [facility] Diastolic (mm Hg) 2013-03-07 23:25:00 [facility] Heart Rate 2013-03-07 23:25:00 [facility] Systolic (mm Hg) 2013-03-07 20:11:00 [facility] Diastolic (mm Hg) 2013-03-07 20:11:00 [facility] Respitory Rate 2013-03-07 20:11:00 [facility] Heart Rate 2013-03-07 20:11:00 [facility] Diastolic (mm Hg) 2013-03-07 18:24:00 [facility] Respitory Rate 2013-03-07 18:24:00 [facility] Systolic (mm Hg) 2013-03-07 18:24:00 [facility] Heart Rate 2013-03-07 18:24:00 [facility] Temperature Oral (F) 2013-03-07 18:24:00 99.1 F [facility] Systolic (mm Hg) 2013-03-07 17:30:00 [facility] Diastolic (mm Hg) 2013-03-07 17:30:00 [facility] Heart Rate 2013-03-07 17:30:00 [facility] Respitory Rate 2013-03-07 17:30:00 [facility] Systolic (mm Hg) 2013-03-07 15:59:00 [facility] Diastolic (mm Hg) 2013-03-07 15:59:00 [facility] Heart Rate 2013-03-07 15:59:00 [facility] Respitory Rate 2013-03-07 15:59:00 [facility] Temperature Oral (F) 2013-03-07 15:16:00 101.2 F [facility] Height 2012-04-04 03:37:00 162.56 cm [facility] Weight 2012-04-04 03:37:00 [facility] Procedures Procedure Date / Time Performed Performing Clinician Source COMP. METABOLIC PANEL (42527) 2023-07-26 01:25:00 Tanika aPlma [facility] CBC WITH DIFF 2023-07-26 01:25:00 Tanika Palma [facility] URINALYSIS 2023-07-26 01:25:00 Tanika Palma [facility] CT ABDOMEN PELVIS WO CONTRAST 2023-07-26 01:10:24 Tanika Palma [facility] RAPID INFLUENZA A/B 2023-03-09 02:11:00 Candace Bynum [facility] COVID-19 (ID NOW RAPID TESTING) 2023-03-09 02:11:00 Cathy Bynum [facility] CONSENT/REFUSAL FOR DIAGNOSIS AND TREATMENT 2023-03-09 01:56:38 Doctor Unassigned, [place]ky [facility] CONSENT/REFUSAL FOR DIAGNOSIS AND TREATMENT 2022-12-06 11:44:53 Doctor Unassigned, [place]ky [facility] ASSIGNMENT OF BENEFITS 2022-12-06 11:42:17 Docto r Unassigned, Mc[place]ky [facility] EKG-12 LEAD 2022-12-06 11:39:47 En Han [facility] CT ABDOMEN PELVIS WO CONTRAST 2022-12-05 02:11:04 Blanca Foley [facility] ASSIGNMENT OF BENEFITS 2022-12-05 01:56:11 Docto r Unassigned, [place]ky [facility] BASIC METABOLIC PANEL (NA, K, CL, CO2, GLUCOSE, BUN, CREATININE, CA) 2022-12-05 01:42:00 Blanca Foley [facility] CBC WITH DIFF 2022-12-05 01:42:00 Blanca Foley [facility] URINALYSIS 2022-12-05 01:42:00 Blanca Foley [facility] CONSENT/REFUSAL FOR DIAGNOSIS AND TREATMENT 2022-12-05 00:55:58 Doctor Unassigned, [place]ky [facility] TROPONIN I 2022-11-23 05:44:00 Ingrid Paez [facility] COVID-19 (ID NOW RAPID TESTING) 2022-11-23 04:37:00 Ingrid Paez [facility] LIPASE 2022-11-23 03:57:00 Ingrid Paez [facility] TROPONIN I 2022-11-23 03:57:00 Ingrid Paez [facility] COMP. METABOLIC PANEL ([id number]) 2022-11-23 03:57:00 Ingrid Paez [facility] CBC WITH DIFF 2022-11-23 03:57:00 Ingrid Paez [facility] N-TERMINAL PRO-BNP 2022-11-23 03:57:00 Ingrid Paez [facility] NOTICE OF PRIVACY PRACTICES 2022-11-23 03:40:59 Doctor Unassigned, [place]ky [facility] CONSENT/REFUSAL FOR DIAGNOSIS AND TREATMENT 2022-11-23 03:40:18 Doctor Unassigned, [place]ky [facility] URINALYSIS 2022-07-19 09:49:00 Alyse Bridges [facility] THYROID STIMULATING HORMONE 2022-07-19 09:16:00 Alyse Bridges [facility] COMP. METABOLIC PANEL ([id number]) 2022-07-19 09:16:00 Alyse Bridges [facility] CBC WITH DIFF 2022-07-19 09:16:00 Alyse Bridges [facility] CONSENT/REFUSAL FOR DIAGNOSIS AND TREATMENT 2022-07-19 09:03:59 Doctor Unassigned, [place]ky [facility] COMP. METABOLIC PANEL ([id number]) 2022-04-06 17:39:00 Alejandrina Pena [facility] CBC WITH DIFF 2022-04-06 17:39:00 Alejandrina Pena [facility] CT ABDOMEN PELVIS WO CONTRAST 2022-04-06 17:34:50 Alejandrina Pena [facility] URINALYSIS 2022-04-06 15:51:00 Alejandrina Pena [facility] CONSENT/REFUSAL FOR DIAGNOSIS AND TREATMENT 2022-04-06 15:02:38 Doctor Unassigned, [place]ky [facility] COMP. METABOLIC PANEL ([id number]) 2021-10-18 17:29:00 Cristal Young [facility] CBC WITH DIFF 2021-10-18 17:29:00 [facility]BD[facility] PELVIS WO CONTRAST 2021-10-18 17:18:40 Cristal Young [facility] URINALYSIS 2021-10-18 16:11:00 Cristal Young Un [facility] CONSENT/REFUSAL FOR DIAGNOSIS AND TREATMENT 2021-10-18 15:31:32 Doctor Unassigned, [place]ky [facility] CT ABDOMEN PELVIS W CONTRAST 2021-09-24 17:21:53 Alejandrina Pena [facility] LIPASE 2021-09-24 16:53:00 [facility] COMP. METABOLIC PANEL ([id number]) 2021-09-24 16:53:00 Alejandrina Pena [facility] CBC WITH DIFF 2021-09-24 16:53:00 Alejandrina Pena [facility] PROTHROMBIN TIME / INR 2021-09-24 16:53:00 Tayo Pena [facility] ACTIVATED PARTIAL THRMPLAS MELISSA 2021-09-24 16:53:00 Alejandrina Pena [facility] URINALYSIS 2021-09-24 16:53:00 Alejandrina Pena [facility] CONSENT/REFUSAL FOR DIAGNOSIS AND TREATMENT 2021-09-24 16:13:53 Doctor Unassigned, [place] [facility] POCT TEST 2021-04-10 20:49:00 Magdy Church [facility] CREATINE KINASE 2021-04-10 20:44:00 Ranjit Church [facility] COMP. METABOLIC PANEL ([id number]) 2021-04-10 20:44:00 Ranjit Church [facility] CBC WITH DIFF 2021-04-10 20:44:00 Ranjit Church [facility] URINALYSIS 2021-04-10 20:44:00 Ranjit Church [facility] XR CHEST 1 VW 2021-04-10 19:38:38 Ranjit Church [facility] CONSENT/REFUSAL FOR DIAGNOSIS AND TREATMENT 2021-04-10 18:33:05 Doctor Unassigned, [place] [facility] XR ABDOMEN ACUTE SERIES 2021-04-03 07:31:57 Sumanth Bradford [facility] URINALYSIS 2021-04-03 07:10:00 Diana Bradford [facility] COVID-19 (ID NOW RAPID TESTING) 2021-04-03 07:10:00 Diana Bradford [facility] NOTICE OF PRIVACY PRACTICES 2021-04-03 06:51:09 Doctor Unassigned, [place] [facility] CONSENT/REFUSAL FOR DIAGNOSIS AND TREATMENT 2021-04-03 06:49:41 Doctor Unassigned, [place] [facility] EKG-12 LEAD 2020-09-11 03:54:05 Ingrid Paez [facility] XR CHEST 1 VW 2020-09-11 01:03:05 Ingrid Paez [facility] CBC WITH DIFF 2020-09-11 00:55:00 Ingrid Paez [facility] PROTHROMBIN TIME / INR 2020-09-11 00:55:00 Angely Paez [facility] ACTIVATED PARTIAL THRMPLAS MELISSA 2020-09-11 00:55:00 Ingrid Paez [facility] LIPASE 2020-09-11 00:55:00 Ingrid Paez [facility] TROPONIN I 2020-09-11 00:55:00 Ingrid Paez [facility] COMP. METABOLIC PANEL ([id number]) 2020-09-11 00:55:00 Ingrid Paez [facility] CONSENT/REFUSAL FOR DIAGNOSIS AND TREATMENT 2020-09-11 00:37:21 Doctor Unassigned, [place] [facility] URINALYSIS 2020-05-05 21:33:00 Marisol Ocampo [facility] NOTICE OF PRIVACY PRACTICES 2020-05-05 21:03:49 Doctor Unassigned, [place] [facility] CONSENT/REFUSAL FOR DIAGNOSIS AND TREATMENT 2020-05-05 21:02:41 Doctor Unassigned, [place] [facility] XR FOOT 3+ VW LEFT 2019-10-04 22:26:37 Ranjit Church [facility] NOTICE OF PRIVACY PRACTICES 2019-10-04 21:14:42 Doctor Unassigned, [place] [facility] Laparoscopic hysterectomy 2016-05-01 06:00:00 [facility] section<sup>1</sup> [facility] Plan of Care Planned Activity Planned Date Details Comments Source Goal Plan of Care Note [code = 38625-8] Goal Plan of Care Note [code = 34135-7] Goal Plan of Care Note [code = 49180-9] Goal Plan of Care Note [code = 46337-5] Goal Plan of Care Note [code = 97097-9] Goal Plan of Care Note [code = 63271-4] Goal Plan of Care Note [code = 80903-9] Goal Plan of Care Note [code = 45920-4] Goal Plan of Care Note [code = 46308-9] Goal Plan of Care Note [code = 94118-5] Goal Plan of Care Note [code = 79285-2] Goal Plan of Care Note [code = 08491-9] Goal Plan of Care Note [code = 05967-5] Goal Plan of Care Note [code = 48583-1] Goal Plan of Care Note [code = 35495-1] Goal Plan of Care Note [code = 60102-5] Goal Plan of Care Note [code = 16976-6] Goal Plan of Care Note [code = 19388-7] Goal Plan of Care Note [code = 17820-9] Goal Plan of Care Note [code = 79184-6] Goal Plan of Care Note [code = 26152-5] Goal Plan of Care Note [code = 31275-5] Goal Plan of Care Note [code = 06828-8] Goal Plan of Care Note [code = 26198-0] Goal Plan of Care Note [code = 32536-7] Goal Plan of Care Note [code = 82702-6] Goal Plan of Care Note [code = 62514-8] Goal Plan of Care Note [code = 35375-3] Goal Plan of Care Note [code = 22431-2] Goal Plan of Care Note [code = 25952-8] Goal Plan of Care Note [code = 74697-2] Goal Plan of Care Note [code = 89831-8] Goal Plan of Care Note [code = 29477-0] Goal Plan of Care Note [code = 22959-0] Goal Plan of Care Note [code = 28712-4] Goal Plan of Care Note [code = 69991-5] Goal Plan of Care Note [code = 97850-4] Goal Plan of Care Note [code = 28553-9] Goal Plan of Care Note [code = 71380-7] Goal Plan of Care Note [code = 96431-3] Goal Plan of Care Note [code = 93686-5] Goal Plan of Care Note [code = 06767-3] Goal Plan of Care Note [code = 02277-1] Goal Plan of Care Note [code = 11290-8] Goal Plan of Care Note [code = 72015-8] Goal Plan of Care Note [code = 23443-0] Goal Plan of Care Note [code = 92720-7] Goal Plan of Care Note [code = 15573-2] Goal Plan of Care Note [code = 01981-4] Goal Plan of Care Note [code = 70600-9] Goal Plan of Care Note [code = 27865-4] Goal Plan of Care Note [code = 36971-5] Goal Plan of Care Note [code = 43588-0] Goal Plan of Care Note [code = 26297-9] Goal Plan of Care Note [code = 17343-0] Goal Plan of Care Note [code = 10764-0] Goal Plan of Care Note [code = 96776-4] Goal Plan of Care Note [code = 35212-4] Goal Plan of Care Note [code = 45358-3] Goal Plan of Care Note [code = 76179-6] Goal Plan of Care Note [code = 03052-6] Goal Plan of Care Note [code = 93091-0] Goal Plan of Care Note [code = 87377-0] Goal Plan of Care Note [code = 70541-5] Goal Plan of Care Note [code = 28934-2] Goal Plan of Care Note [code = 88754-1] Goal Plan of Care Note [code = 41765-5] Goal Plan of Care Note [code = 52822-6] Goal Plan of Care Note [code = 19850-6] Goal Plan of Care Note [code = 57799-1] Goal Plan of Care Note [code = 18960-3] Goal Plan of Care Note [code = 62231-1] Goal Plan of Care Note [code = 59379-7] Goal Plan of Care Note [code = 70772-2] Goal Plan of Care Note [code = 42323-8] Goal Plan of Care Note [code = 36902-2] Goal Plan of Care Note [code = 06298-9] Goal Plan of Care Note [code = 64846-2] Goal Plan of Care Note [code = 25824-6] Goal Plan of Care Note [code = 12235-4] Goal Plan of Care Note [code = 56808-5] Goal Plan of Care Note [code = 47782-1] Goal Plan of Care Note [code = 16309-3] Goal Plan of Care Note [code = 00305-4] Goal Plan of Care Note [code = 97801-4] Goal Plan of Care Note [code = 82013-4] Goal Plan of Care Note [code = 56200-7] Goal Plan of Care Note [code = 63075-4] Goal Plan of Care Note [code = 58339-8] Goal Plan of Care Note [code = 94336-0] Goal Plan of Care Note [code = 79618-3] Goal Plan of Care Note [code = 91153-7] Goal Plan of Care Note [code = 62521-7] Goal Plan of Care Note [code = 65817-6] Goal Plan of Care Note [code = 24888-5] Goal Plan of Care Note [code = 48181-2] Goal Plan of Care Note [code = 85014-1] Goal Plan of Care Note [code = 07326-3] Goal Plan of Care Note [code = 49880-0] Goal Plan of Care Note [code = 30683-0] Goal Plan of Care Note [code = 20872-5] Goal Plan of Care Note [code = 30782-9] Goal Plan of Care Note [code = 28272-9] Goal Plan of Care Note [code = 96663-3] Goal Plan of Care Note [code = 40015-7] Goal Plan of Care Note [code = 10084-6] Goal Plan of Care Note [code = 95730-4] Goal Plan of Care Note [code = 06837-1] Goal Plan of Care Note [code = 24649-4] Goal Plan of Care Note [code = 20340-6] Goal Plan of Care Note [code = 46835-5] Goal Plan of Care Note [code = 25910-6] Goal Plan of Care Note [code = 25291-1] Goal Plan of Care Note [code = 06740-8] Goal Plan of Care Note [code = 33652-5] Goal Plan of Care Note [code = 28356-0] Goal Plan of Care Note [code = 41574-5] Goal Plan of Care Note [code = 88658-5] Goal Plan of Care Note [code = 53529-4] Goal Plan of Care Note [code = 66352-3] Goal Plan of Care Note [code = 22293-5] Goal Plan of Care Note [code = 05405-6] Goal Plan of Care Note [code = 01105-0] Goal Plan of Care Note [code = 34099-4] Goal Plan of Care Note [code = 79079-1] Goal Plan of Care Note [code = 61539-4] Goal Plan of Care Note [code = 90022-7] Goal Plan of Care Note [code = 55315-9] Goal Plan of Care Note [code = 11427-0] Goal Plan of Care Note [code = 06668-0] Goal Plan of Care Note [code = 27523-1] Goal Plan of Care Note [code = 51140-3] Goal Plan of Care Note [code = 04530-4] Goal Plan of Care Note [code = 08702-5] Goal Plan of Care Note [code = 90559-9] Goal Plan of Care Note [code = 51519-1] Goal Plan of Care Note [code = 72322-6] Goal Plan of Care Note [code = 48894-3] Goal Plan of Care Note [code = 15155-8] Goal Plan of Care Note [code = 11037-4] Goal Plan of Care Note [code = 77827-5] Goal Plan of Care Note [code = 59846-9] Goal Plan of Care Note [code = 66793-3] Goal Plan of Care Note [code = 64718-7] Goal Plan of Care Note [code = 66469-4] Goal Plan of Care Note [code = 76687-1] Goal Plan of Care Note [code = 88698-4] Goal Plan of Care Note [code = 33169-4] Goal Plan of Care Note [code = 88979-3] Goal Plan of Care Note [code = 77884-2] Goal Plan of Care Note [code = 76568-1] Goal Plan of Care Note [code = 72106-9] Goal Plan of Care Note [code = 26820-8] Goal Plan of Care Note [code = 14673-1] Goal Plan of Care Note [code = 90471-0] Goal Plan of Care Note [code = 40212-3] Goal Plan of Care Note [code = 60631-7] Goal Plan of Care Note [code = 42773-1] Goal Plan of Care Note [code = 24217-0] Goal Plan of Care Note [code = 66945-2] Goal Plan of Care Note [code = 45911-8] Goal Plan of Care Note [code = 01058-6] Goal Plan of Care Note [code = 97322-0] Goal Plan of Care Note [code = 92735-4] Goal Plan of Care Note [code = 72469-9] Goal Plan of Care Note [code = 70510-0] Goal Plan of Care Note [code = 16463-8] Goal Plan of Care Note [code = 55491-0] Goal Plan of Care Note [code = 10209-1] Goal Plan of Care Note [code = 17972-5] Goal Plan of Care Note [code = 75288-7] Goal Plan of Care Note [code = 05352-1] Goal Plan of Care Note [code = 78810-3] Goal Plan of Care Note [code = 58564-5] Goal Plan of Care Note [code = 14025-4] Goal Plan of Care Note [code = 45058-4] Goal Plan of Care Note [code = 58285-1] Goal Plan of Care Note [code = 50678-0] Goal Plan of Care Note [code = 55104-0] Goal Plan of Care Note [code = 50798-6] Goal Plan of Care Note [code = 71582-1] Goal Plan of Care Note [code = 10155-3] Goal Plan of Care Note [code = 79263-2] Goal Plan of Care Note [code = 38933-5] Goal Plan of Care Note [code = 60579-8] Goal Plan of Care Note [code = 17900-1] Goal Plan of Care Note [code = 39454-0] Goal Plan of Care Note [code = 15093-4] Goal Plan of Care Note [code = 87171-6] Goal Plan of Care Note [code = 52171-0] Goal Plan of Care Note [code = 63434-7] Goal Plan of Care Note [code = 97777-5] Goal Plan of Care Note [code = 17859-1] Goal Plan of Care Note [code = 07345-0] Goal Plan of Care Note [code = 16325-6] Goal Plan of Care Note [code = 37890-5] Goal Plan of Care Note [code = 83066-2] Goal Plan of Care Note [code = 13505-9] Goal Plan of Care Note [code = 79094-2] Goal Plan of Care Note [code = 03768-0] Goal Plan of Care Note [code = 93226-3] Goal Plan of Care Note [code = 47136-3] Goal Plan of Care Note [code = 47170-2] Goal Plan of Care Note [code = 99925-1] Goal Plan of Care Note [code = 68465-7] Goal Plan of Care Note [code = 12374-8] Goal Plan of Care Note [code = 30535-8] Goal Plan of Care Note [code = 57797-4] Goal Plan of Care Note [code = 93365-6] Goal Plan of Care Note [code = 08897-2] Goal Plan of Care Note [code = 06386-2] Goal Plan of Care Note [code = 26102-0] Goal Plan of Care Note [code = 41870-7] Goal Plan of Care Note [code = 78927-8] Goal Plan of Care Note [code = 33021-4] Goal Plan of Care Note [code = 61851-1] Goal Plan of Care Note [code = 97389-2] Goal Plan of Care Note [code = 89399-8] Goal Plan of Care Note [code = 17556-2] Goal Plan of Care Note [code = 76217-1] Goal Plan of Care Note [code = 42619-5] Goal Plan of Care Note [code = 04701-9] Goal Plan of Care Note [code = 40374-5] Goal Plan of Care Note [code = 98970-5] Goal Plan of Care Note [code = 04132-9] Goal Plan of Care Note [code = 07621-0] Goal Plan of Care Note [code = 07437-2] Goal Plan of Care Note [code = 89889-4] Goal Plan of Care Note [code = 20151-7] Goal Plan of Care Note [code = 93385-0] Goal Plan of Care Note [code = 01832-6] Goal Plan of Care Note [code = 38151-3] Goal Plan of Care Note [code = 85447-9] Goal Plan of Care Note [code = 45347-0] Goal Plan of Care Note [code = 58614-2] Goal Plan of Care Note [code = 96879-4] Goal Plan of Care Note [code = 24226-8] Goal Plan of Care Note [code = 48924-7] Goal Plan of Care Note [code = 24469-3] Goal Plan of Care Note [code = 08335-7] Goal Plan of Care Note [code = 12590-9] Goal Plan of Care Note [code = 21291-9] Goal Plan of Care Note [code = 54738-7] Goal Plan of Care Note [code = 39748-3] Goal Plan of Care Note [code = 80567-0] Goal Plan of Care Note [code = 37869-9] Goal Plan of Care Note [code = 97870-0] Goal Plan of Care Note [code = 25904-7] Goal Plan of Care Note [code = 87031-2] Goal Plan of Care Note [code = 12077-2] Goal Plan of Care Note [code = 04206-0] Goal Plan of Care Note [code = 46766-9] Goal Plan of Care Note [code = 10448-0] Goal Plan of Care Note [code = 35204-0] Goal Plan of Care Note [code = 90503-5] Goal Plan of Care Note [code = 96814-5] Goal Plan of Care Note [code = 06822-5] Goal Plan of Care Note [code = 18976-0] Encounters Start Date/Time End Date/Time Encounter Type Admission Type Attending [facility] Care Department Encounter ID Source 2024-10-23 09:15:57 2024-10-23 09:15:57 Outpatient SFA [facility] [address] 2024-10-23 00:00:00 2024-10-23 00:00:00 Outpatient Visit SFA [id number] Emiliano Sahu 2024-10-23 00:00:00 2024-10-23 00:00:00 Outpatient Visit SFA [id number] Emiliano Sahu 2024-10-17 08:00:15 2024-10-17 08:00:15 Outpatient SFA [facility] [address] Em[address] Sahu 2024-10-17 00:00:00 2024-10-17 00:00:00 Outpatient Visit SFA [id number] Emiliano Sahu 2024-08-21 10:31:18 2024-08-21 10:31:18 Outpatient SFA [facility] [address] 2024-08-20 17:37:49 2024-08-20 17:37:49 Outpatient SFA [facility] [address]ahu 2024-08-20 00:00:00 2024-08-20 00:00:00 Outpatient Visit SFA [id number] Emiliano Sahu 2024-03-05 10:06:01 2024-03-05 10:06:01 Outpatient SFA [facility] [address] 2024-03-05 00:00:00 2024-03-05 00:00:00 Outpatient Visit SFA [id number] Emiliano Sahu 2023-07-25 19:40:00 2023-07-25 21:32:00 Emergency X TANIKA PALMA [facility] ERT [id number] [facility] 2023-07-25 19:40:00 2023-07-25 21:32:00 Emergency Tanika Palma [facility] 1.2.840.114 350.1.13.10 4.2.7.2.686 [id number] [facility] 2023-05-28 16:30:00 2023-05-28 16:30:00 Outpatient GLYNN FERRARI [facility] [id number] [facility] 2023-05-28 16:30:00 2023-05-28 16:30:00 Outpatient GLYNN FERRARI PAM [id number] [facility] 2023-04-26 09:21:23 2023-04-26 09:21:23 Outpatient S[facility] [address] Emil[address] Mercado Luis Alberto 2023-03-08 20:08:00 2023-03-08 21:38:00 Emergency X GEOVANNY DELGADO [facility] ERT [id number] [facility] 2023-03-08 20:08:00 2023-03-08 21:38:00 Emergency Geovanny Delgado [facility] 1.2.840.114 350.1.13.10 4.2.7.2.686 [id number] [facility] 2023-03-06 09:51:54 2023-03-06 09:51:54 Outpatient S[facility] [address] F Luis Alberto 2022-12-06 14:43:41 2022-12-06 14:43:41 Outpatient [facility] [address] Em[address] Mercado Luis Alberto 2022-12-06 06:18:00 2022-12-06 06:50:00 Emergency X EN HAN [facility] ERT [id number] [facility] 2022-12-06 06:18:00 2022-12-06 06:50:00 Emergency En Han [facility] 1.2.840.114 350.1.13.10 4.2.7.2.686 [id number] [facility] 2022-12-04 20:19:00 2022-12-04 22:32:00 Emergency X BLANCA FOLEY [facility] ERT [id number] [facility] 2022-12-04 20:19:00 2022-12-04 22:32:00 Emergency Blanca Foley [facility] 1.2.840.114 350.1.13.10 4.2.7.2.686 [id number] [facility] 2022-11-30 23:52:00 2022-12-01 01:15:00 Emergency EM John Christianson [facility] KENNETH [id number] [facility] 2022-11-29 14:40:37 2022-11-29 14:40:37 Outpatient [facility] [address] 2022-11-22 22:48:00 2022-11-23 03:01:00 Emergency X INGRID PAEZ [facility] ERT [id number] [facility] 2022-11-22 22:48:00 2022-11-23 03:01:00 Emergency Ingrid Paez [facility] 1.2.840.114 350.1.13.10 4.2.7.2.686 [id number] [facility] 2022-11-22 00:00:00 2022-11-22 00:00:00 Orders Only Doctor Unassigned, Mcclusky [facility] 1.2.840.114 350.1.13.10 4.2.7.2.686 [id number] [facility] 2022-09-01 13:47:18 2022-09-01 13:47:18 Outpatient [facility] [id number] 06 Emiliano Sahu 2022-07-19 04:06:00 2022-07-19 05:37:00 Emergency X ALYSE BRIDGES [facility] ERT [id number] [facility] 2022-07-19 04:06:00 2022-07-19 05:37:00 Emergency Alyse Bridges [facility] 1.2.840.114 [id number] [id number] [id number] [facility] 2022-06-20 09:22:21 2022-06-20 09:22:21 Outpatient [facility] 327 Emiliano Sahu 2022-06-15 09:26:50 2022-06-15 09:26:50 Outpatient [facility] 322 Emiliano Sahu 2022-04-25 08:16:41 2022-04-25 08:16:41 Outpatient [facility] [id number] Emiliano Sahu 2022-04-12 09:29:39 2022-04-12 09:29:39 Outpatient [facility] [id number] Emiliano Sahu 2022-04-06 09:14:00 2022-04-06 13:08:00 Emergency X ALEJANDRINA PENA [facility] ERT [id number] [facility] 2022-04-06 09:14:00 2022-04-06 13:08:00 Emergency Alejandrina Pena [facility] 1.2.840.114 350.1.13.10 4.2.7.2.686 [id number] [facility] 2022-02-08 10:15:08 2022-02-08 10:15:08 Outpatient SFA SFA 1116 Emiliano Sahu 2022-02-08 00:00:00 2022-02-08 00:00:00 Outpatient Visit [id number] [id number] 2022-02-03 13:28:04 2022-02-03 13:28:04 Outpatient SFA SFA 1111 Emiliano Sahu 2022-02-02 16:28:55 2022-02-02 16:28:55 Outpatient SFA SFA 1110 Emiliano Sahu 2022-02-02 00:00:00 2022-02-02 00:00:00 Outpatient Visit [id number] 2021-10-20 00:00:00 2021-10-20 00:00:00 Outpatient Visit [id number] 2021-10-18 10:32:00 2021-10-18 14:15:00 Emergency X CRISTAL YOUNG [facility] ERT [id number] [facility] 2021-10-18 10:32:00 2021-10-18 14:15:00 Emergency Cristal Young [facility] 1.2.840.114 350.1.13.10 4.2.7.2.686 [id number] [facility] 2021-10-07 00:00:00 2021-10-07 00:00:00 Outpatient Visit [id number] 2021-09-29 00:00:00 2021-09-29 00:00:00 Outpatient Visit [id number] -[id number] 2021-09-24 11:21:00 2021-09-24 13:51:00 Emergency X ALEJANDRINA PENAMB ERT [id number] [facility] 2021-09-24 11:21:00 2021-09-24 13:51:00 Emergency Alejandrina Pena [facility] 1.2.840.114 350.1.13.10 4.2.7.2.686 [id number] [facility] 2021-09-21 00:00:00 2021-09-21 00:00:00 Outpatient Visit [id number] 2021-04-10 12:42:00 2021-04-10 16:01:00 Emergency RANJIT GARNER [facility] ERT [id number] [facility] 2021-04-10 12:42:00 2021-04-10 16:01:00 Emergency Ranjit Church [facility] 1.2.840.114 350.1.13.10 4.2.7.2.686 [id number] [id number] [facility] 2021-04-03 01:07:00 2021-04-03 01:54:00 Emergency DIANA CHAMBERS [facility] ERT [id number] [facility] 2021-04-03 01:07:00 2021-04-03 01:54:00 Emergency Diana Bradford [facility] 1.2.840.114 350.1.13.10 4.2.7.2.686 [id number] [facility] 2020-09-10 19:42:00 2020-09-10 23:08:00 Emergency MinervajiTutu johansenqasim Jayden [facility] 1.2.840.114 350.1.13.10 4.2.7.2.686 [id number] [id number] [facility] 2020-09-10 19:42:00 2020-09-10 19:42:00 Emergency X INGRID PAEZ [facility] ERT [id number] [facility] 2020-05-06 00:00:00 2020-05-06 00:00:00 Patient Secure Msg Doctor Unassigned, Mcclusky [facility] 1.2.840.114 350.1.13.10 4.2.7.2.686 [id number] [facility] 2020-05-05 15:10:00 2020-05-05 16:55:00 Emergency Marisol Ocampo [facility] 1.2.840.114 350.1.13.10 4.2.7.2.686 [id number] [id number] [facility] 2020-05-05 15:10:00 2020-05-05 16:55:00 Emergency Marisol Ocampo [facility] 1.2.840.114 350.1.13.10 4.2.7.2.686 [id number] 2020-05-05 15:03:00 2020-05-05 15:03:00 Emergency X MARISOL OCAMPO [facility] ERT [id number] [facility] 2019-10-04 16:26:50 2019-10-04 19:58:00 Emergency Ranjit Church [facility] 1.2.840.114 350.1.13.10 4.2.7.2.686 [id number] [id number] [facility] 2019-10-04 16:26:50 2019-10-04 19:58:[address] [facility] 1.2.840.114 350.1.13.10 4.2.7.2.686 [id number] 2019-10-04 16:26:50 2019-10-04 16:26:50 Emergency X RANJIT CHURCH [facility] ERT [id number] [facility] 2018-04-10:22:00 2018-04-11 01:59:00 Emergency nullFlavo r [id number] Raven Gibson 2018-03-29 20:53:00 2018-03-29 23:30:00 Emergency nullFlavo r [facility] [id number] Raven Gibson 2017-11-17 02:34:00 2017-11-17 06:15:00 Emergency nullFlavo r [facility] [id number] Troyinderjit candace Gibson 2017-11-16 21:34:00 2017-11-16 21:34:00 Emergency E [facility] [address] [facility] 2017-10-31 19:57:00 2017-10-31 23:33:00 Emergency nullFlavo [facility] [id number] Raven Gibson 2017-10-26 00:14:00 2017-10-26 07:52:00 Emergency nullFlavo r [id number] Raven Gibson 2017-10-13 14:30:00 2017-10-13 17:24:00 Emergency nullFlavo [facility] [id number] Raven Gibson 2017-10-05 12:20:00 2017-10-05 12:20:00 Emergency [facility] [id number] [facility] 2017-07-14 08:07:11 2017-07-14 08:07:11 Emergency [facility] [id number] [facility] 2017-07-14 05:07:03 2017-07-14 05:07:03 Outpatient [facility] [id number] [facility] 2016-05-01 11:36:30 2016-05-02 21:50:00 Bedded Outpatient nullFlavo r [facility] [id number] Raven Gibson 2016-03-17 21:57:00 2016-03-18 01:05:00 Emergency nullFlavo r [facility] [id number] Raven Gibson 2015-08-03 14:32:00 2015-08-03 16:11:00 Emergency Center nullFlavo [facility] [id number] Raven Gibson 2015-04-07 13:00:00 2015-04-08 23:27:00 OBS Observatio n Patient nullFlavo r [id number] [facility] 2014-11-05 19:22:00 2014-11-07 21:40:00 OBS Observatio n Patient nullFlavo r [facility] [id number] [facility] Frannie 2014-11-03 13:30:00 2014-11-03 18:40:00 EC Emergency Center nullFlavo r [facility] [id number] [facility] 2013-03-07 14:11:00 2013-03-07 20:05:00 Emergency nullFlavo r [facility] [id number] [facility] 2013-03-07 09:06:00 2013-03-07 12:26:00 Emergency nullFlavo r [facility] [id number] [facility] 2012-04-03 21:19:00 2012-04-04 03:17:00 Emergency nullFlavo r [facility] [id number] [facility] Results Test Description Test Time Test Comments Results Result Co mments Source Emiliano SahuCULTURE, URINE, [id number] 00:00:00* Test Item Value Reference Range Interpretation Comme nts CULTURE, URINE, ROUTINE (ángel t code = 630-4) SEE NOTE Emiliano Mercado Pam w/ABR [id number] 00:00:00* Test Item Value Reference Range Interpretation Comme nts ACINETOBACTER BAUMANNII (ángel t code = 86194-3) Negative KLEBSIELLA AEROGENES (test c ode = 61533-4) Negative CITROBACTER FREUNDII (test c ode = 49537-6) Negative ENTEROBACTER CLOACAE (test c ode = 04817IHS) Negative ESCHERICHIA COLI (test code = 73407-8) Positive KLEBSIELLA OXYTOCA (test cod e = 19593-7) Negative KLEBSIELLA PNEUMONIAE (test code = 34462-9) Negative MORGANELLA MORGANII (test co de = 71219-3) Negative MYCOPLASMA HOMINIS (test cod e = 67282-3) Negative PROTEUS MIRABILIS (test code = 32333-0) Negative PROTEUS VULGARIS (test code = 341610-4) Negative PROVIDENCIA STUARTII (test c ode = 25503-3) Negative PSEUDOMONAS AERUGINOSA (test code = 31275-5) Negative SERRATIA MARCESCENS (test co de = 64402-2) Negative UREAPLASMA UREALYTICUM (test code = 81323-5) Negative ENTEROCOCCUS FAECALIS (test code = 86335-3) Negative ENTEROCOCCUS FAECIUM (test c ode = 42713-7) Negative STAPHYLOCOCCUS AUREUS (test code = 34954-1) Negative STAPHYLOCOCCUS SAPROPHYTICUS (test code = 63526-5) Negative STREPTOCOCCUS AGALACTIAE (te st code = 35673-4) Negative ANNETTE ALBICANS (test code = 14031-8) Negative ANNETTE GLABRATA (test code = no code1) Negative ANNETTE PARAPSILOSIS (test c ode = no code3) Negative MACROLIDE RESISTANCE MARKER (ERMB) (test code = No code) Negative AMPC RESISTANCE MARKER (ACT) (test code = 24550-0) Negative ESBL RESISTANCE MARKER (CTX- M GROUP 9) (test code = 02358-6) Negative AMPC TYPE β-LACTAMASE (MORALES) (test code = 11665-4) Negative QUINOLONE AND FLUOROQUINOLON E RM (QNRS) (test code = No code6) Negative SULFONAMIDE RESISTANCE MARKE R (SUL1) (test code = No code7) Negative SULFONAMIDE RESISTANCE MARKE R (SUL2) (test code = No code8) Negative TETRACYCLINE RESISTANCE NASH ER (TET) (test code = 91903-0) Negative AMPC RESISTANCE MARKER (AMPC ) (test code = 89542-0) Negative CARBAPENEM RESISTANCE MARKER (IMP-7) (test code = 74734-0) Negative CARBAPENEM RESISTANCE MARKER (KPC) (test code = 01555-1) Negative CARBAPENEM RESISTANCE MARKER (NDM) (test code = 94930-7) Negative CARBAPENEM RESISTANCE MARKER (OXA-48) (test code = 36028-6) Negative CARBAPENEM RESISTANCE MARKER (VIM) (test code = 86276-5) Negative ESBL RESISTANCE MARKER (CTX- M GROUP 1) (test code = 96967-2) Negative ESBL RESISTANCE MARKER (CTX- M GROUP 2) (test code = 51115-2) Negative ESBL RESISTANCE MARKER (SHV) (test code = 28198-5) Negative ESBL RESISTANCE MARKER (TEM) (test code = 89163-6) Negative MACROLIDE RESISTANCE MARKER (TISHA) (test code = 82339-4) Negative QUINOLONE AND FLUOROQUINOLON E RM (QNRA) (test code = no code5) Negative QUINOLONE AND FLUOROQUINOLON E RM (QNRB) (test code = 80778-3) Negative Emiliano Orozco w/ABR [id number] 00:00:00* Test Item Value Reference Range Interpretation Comme nts ACINETOBACTER BAUMANNII (ángel t code = 76719-8) Negative KLEBSIELLA AEROGENES (test c ode = 32288-5) Negative CITROBACTER FREUNDII (test c ode = 22102-9) Negative ENTEROBACTER CLOACAE (test c ode = 76280FYS) Negative ESCHERICHIA COLI (test code = 29749-3) Positive KLEBSIELLA OXYTOCA (test cod e = 17842-3) Negative KLEBSIELLA PNEUMONIAE (test code = 38666-0) Negative MORGANELLA MORGANII (test co de = 90253-0) Negative MYCOPLASMA HOMINIS (test cod e = 71747-9) Negative PROTEUS MIRABILIS (test code = 41724-5) Negative PROTEUS VULGARIS (test code = 928119-9) Negative PROVIDENCIA STUARTII (test c ode = 37978-1) Negative PSEUDOMONAS AERUGINOSA (test code = 98093-7) Negative SERRATIA MARCESCENS (test co de = 28070-0) Negative UREAPLASMA UREALYTICUM (test code = 15181-8) Negative ENTEROCOCCUS FAECALIS (test code = 85424-0) Negative ENTEROCOCCUS FAECIUM (test c ode = 38867-4) Negative STAPHYLOCOCCUS AUREUS (test code = 73094-4) Negative STAPHYLOCOCCUS SAPROPHYTICUS (test code = 50975-7) Negative STREPTOCOCCUS AGALACTIAE (te st code = 17556-9) Negative ANNETTE ALBICANS (test code = 54004-2) Negative ANNETTE GLABRATA (test code = no code1) Negative ANNETTE PARAPSILOSIS (test c ode = no code3) Negative MACROLIDE RESISTANCE MARKER (ERMB) (test code = No code) Negative AMPC RESISTANCE MARKER (ACT) (test code = 36653-5) Negative ESBL RESISTANCE MARKER (CTX- M GROUP 9) (test code = 62769-7) Negative AMPC TYPE β-LACTAMASE (MORALES) (test code = 59184-2) Negative QUINOLONE AND FLUOROQUINOLON E RM (QNRS) (test code = No code6) Negative SULFONAMIDE RESISTANCE MARKE R (SUL1) (test code = No code7) Negative SULFONAMIDE RESISTANCE MARKE R (SUL2) (test code = No code8) Negative TETRACYCLINE RESISTANCE NASH ER (TET) (test code = 85349-4) Negative AMPC RESISTANCE MARKER (AMPC ) (test code = 66107-8) Negative CARBAPENEM RESISTANCE MARKER (IMP-7) (test code = 29028-9) Negative CARBAPENEM RESISTANCE MARKER (KPC) (test code = 92881-9) Negative CARBAPENEM RESISTANCE MARKER (NDM) (test code = 23280-4) Negative CARBAPENEM RESISTANCE MARKER (OXA-48) (test code = 42053-2) Negative CARBAPENEM RESISTANCE MARKER (VIM) (test code = 52344-7) Negative ESBL RESISTANCE MARKER (CTX- M GROUP 1) (test code = 34420-0) Negative ESBL RESISTANCE MARKER (CTX- M GROUP 2) (test code = 00675-3) Negative ESBL RESISTANCE MARKER (SHV) (test code = 34103-4) Negative ESBL RESISTANCE MARKER (TEM) (test code = 62678-1) Negative MACROLIDE RESISTANCE MARKER (TISHA) (test code = 34924-1) Negative QUINOLONE AND FLUOROQUINOLON E RM (QNRA) (test code = no code5) Negative QUINOLONE AND FLUOROQUINOLON E RM (QNRB) (test code = 05175-9) Negative Emiliano Mercado Pam w/ABR [id number] 00:00:00* Test Item Value Reference Range Interpretation Comme nts ACINETOBACTER BAUMANNII (ángel t code = 40660-6) Negative KLEBSIELLA AEROGENES (test c ode = 14159-0) Negative CITROBACTER FREUNDII (test c ode = 14738-1) Negative ENTEROBACTER CLOACAE (test c ode = 48087UYP) Negative ESCHERICHIA COLI (test code = 69005-2) Positive KLEBSIELLA OXYTOCA (test cod e = 24393-1) Negative KLEBSIELLA PNEUMONIAE (test code = 83792-6) Negative MORGANELLA MORGANII (test co de = 32642-2) Negative MYCOPLASMA HOMINIS (test cod e = 81781-3) Negative PROTEUS MIRABILIS (test code = 32418-1) Negative PROTEUS VULGARIS (test code = 322321-7) Negative PROVIDENCIA STUARTII (test c ode = 77334-9) Negative PSEUDOMONAS AERUGINOSA (test code = 86082-5) Negative SERRATIA MARCESCENS (test co de = 94063-6) Negative UREAPLASMA UREALYTICUM (test code = 25706-4) Negative ENTEROCOCCUS FAECALIS (test code = 39215-5) Negative ENTEROCOCCUS FAECIUM (test c ode = 95863-8) Negative STAPHYLOCOCCUS AUREUS (test code = 80727-0) Negative STAPHYLOCOCCUS SAPROPHYTICUS (test code = 39608-0) Negative STREPTOCOCCUS AGALACTIAE (te st code = 83936-9) Negative ANNETTE ALBICANS (test code = 06176-6) Negative ANNETTE GLABRATA (test code = no code1) Negative ANNETTE PARAPSILOSIS (test c ode = no code3) Negative MACROLIDE RESISTANCE MARKER (ERMB) (test code = No code) Negative AMPC RESISTANCE MARKER (ACT) (test code = 68038-0) Negative ESBL RESISTANCE MARKER (CTX- M GROUP 9) (test code = 63359-2) Negative AMPC TYPE β-LACTAMASE (MORALES) (test code = 20238-0) Negative QUINOLONE AND FLUOROQUINOLON E RM (QNRS) (test code = No code6) Negative SULFONAMIDE RESISTANCE MARKE R (SUL1) (test code = No code7) Negative SULFONAMIDE RESISTANCE MARKE R (SUL2) (test code = No code8) Negative TETRACYCLINE RESISTANCE NASH ER (TET) (test code = 92072-2) Negative AMPC RESISTANCE MARKER (AMPC ) (test code = 19567-8) Negative CARBAPENEM RESISTANCE MARKER (IMP-7) (test code = 42998-0) Negative CARBAPENEM RESISTANCE MARKER (KPC) (test code = 72668-7) Negative CARBAPENEM RESISTANCE MARKER (NDM) (test code = 96384-1) Negative CARBAPENEM RESISTANCE MARKER (OXA-48) (test code = 79229-1) Negative CARBAPENEM RESISTANCE MARKER (VIM) (test code = 68172-2) Negative ESBL RESISTANCE MARKER (CTX- M GROUP 1) (test code = 78543-0) Negative ESBL RESISTANCE MARKER (CTX- M GROUP 2) (test code = 79171-7) Negative ESBL RESISTANCE MARKER (SHV) (test code = 93429-6) Negative ESBL RESISTANCE MARKER (TEM) (test code = 30610-8) Negative MACROLIDE RESISTANCE MARKER (TISHA) (test code = 64708-6) Negative QUINOLONE AND FLUOROQUINOLON E RM (QNRA) (test code = no code5) Negative QUINOLONE AND FLUOROQUINOLON E RM (QNRB) (test code = 66251-4) Negative Emiliano Mercado AustinHEMOGLOBIN [id number] 06:14:48* Test Item Value Reference Range Interpretation Comme nts HEMOGLOBIN A1c (test code = 33228) 6.1 % 4.2-5.6 H [employer] GUIDELINES FOR HGB A1C: PREDIABETES/INCREASED RISK . . . . . . . 5.7-6.4% DIAGNOSIS OF DIABETES . . . . . . . . . >=6.5% WITH CONFIRMATION OR APPROPRIATE SYMPTOMS NOTE: ASSAY MAY BE AFFECTED BY HEMOGLOBINOPATHIES (SICKLE CELL ANEMIA, S-C DISEASE, OTHERS) OR ARTIFICIALLY LOWERED BY DECREASED RED CELL SURVIVAL (HEMOLYTIC ANEMIAS, BLOOD LOSS, ETC.). CONSIDER ALTERNATE TESTING OR LABORATORY CONSULTATION. CBC W/AUTO DIFF WITH [id number] 04:16:09* Test Item Value Reference Range Interpretation Comme nts WBC (test code = 1001) 5.3 K/UL 3.5-11.0 RBC (test code = 1002) 4.14 M/UL 3.80-5.40 HEMOGLOBIN (test code = 1003) 12.5 G/DL 11.5-15.5 HEMATOCRIT (test code = 1004) 36.9 % 34.0-45.0 MCV (test code = 1005) 89.1 fL 80.0-99.0 MCH (test code = 1006) 30.2 PG 25.0-33.0 MCHC (test code = 1007) 33.9 G/DL 31.0-36.0 RDW (test code = 1038) 13.7 % 11.5-15.0 NEUTROPHILS (test code = 1008) 52.1 % LYMPHOCYTES (test code = 1010) 37.6 % MONOCYTES (test code = 1011) 7.2 % EOSINOPHILS (test code = 1012) 2.5 % BASOPHILS (test code = 1013) 0.4 % IMMATURE GRANULOCYTES (test code = 1036) 0.2 % NUCLEATED RBCS (test code = 1065) 0.0 /100 WBC'S See_Comment [Automated message] The system which generated this result transmitted reference range: 0.0. The reference range was not used to interpret this result as normal/abnormal. PLATELET COUNT (test code = 1015) 212 K/UL 130-400 ABSOLUTE NEUTROPHILS (test code = 1066) 2.76 K/UL 1.50-7.50 ABSOLUTE LYMPHOCYTES (test code = 1067) 1.99 K/UL 1.00-4.00 ABSOLUTE MONOCYTES (test code = 1068) 0.38 K/UL 0.20-1.00 ABSOLUTE EOSINOPHILS (test code = 1040) 0.13 K/UL 0.00-0.50 ABSOLUTE BASOPHILS (test code = 1069) 0.02 K/UL 0.00-0.20 ABS IMMATURE GRANULOCYTES (test code = 1020) 0.01 K/UL 0.00-0.10 ABS NUCLEATED RBCS (test code = 87760) 0.00 K/UL 0.00-0.11 UNLESS OTHER RAYA INDICATED, ALL TESTING PERFORMED AT [facility] [address] [place] [address] CARTOGRAPHY TECHNICIAN: KAREN GARNETT M.D. [place] NUMBER [id number] [facility] [place]. [id number] LIPID [id number] 03:33:03* Test Item Value Reference Range Interpretation Comme nts CHOLESTEROL (test code = 2210) 177 MG/DL <200 TRIGLYCERIDES (test code = 2232) 87 MG/DL <150 HDL CHOLESTEROL (test code = 2220) 45 MG/DL >39 CALC LDL CHOL (test code = 2237) 113 MG/DL <100 H NOTE: CALCULATED LDL IS BASED ON LAURA-FERREIRA METHOD WHICHINCLUDES ADJUSTABLE TRIGLYCERIDE:VLDL CHOLESTEROL RATIO.THIS FACTOR VARIES BY MEASURED TRIGLYCERIDE AND NON-HDLCHOLESTEROL CONCENTRATIONS WITH INCREASED CALCULATED LDL SEENIN HIGHER TRIGLYCERIDE OR LOWER NON-HDL SPECIMENS. FOR MOREINFORMATION, SEE CLIENT ANNOUNCEMENT AT [email or web address] RISK RATIO LDL/HDL (test code = 2238) 2.51 RATIO <3.22 COMPREHENSIVE METABOLIC [id number] 03:33:03* Test Item Value Reference Range Interpretation Comme nts GLUCOSE (test code = 2217) 96 MG/DL 70-99 BUN (test code = 220) 9 MG/DL 6-20 CREATININE (test code = 2214) 0.71 MG/DL 0.60-1.30 eGFR (2020 CKD-EPI) (test code = 44184) 105 ML/MIN/1.73 >60 CALC BUN/CREAT (test code = 2235) 13 RATIO 6-28 SODIUM (test code = 223) 137 MEQ/L 133-146 POTASSIUM (test code = 2228) 4.3 MEQ/L 3.5-5.4 CHLORIDE (test code = 2215) 99 MEQ/L 95-107 CARBON DIOXIDE (test code = 2206) 24 MEQ/L 19-31 CALCIUM (test code = 2209) 11.2 MG/DL 8.5-10.5 H PROTEIN, TOTAL (test code = 2229) 8.7 G/DL 6.1-8.3 H ALBUMIN (test code = 2201) 4.3 G/DL 3.5-5.2 CALC GLOBULIN (test code = 2240) 4.4 G/DL 1.9-3.7 H CALC A/G RATIO (test code = 2234) 1.0 RATIO 1.0-2.6 BILIRUBIN, TOTAL (test code = 2207) 0.3 MG/DL <=1.2 ALKALINE PHOSPHATASE (test code = 2204) 95 U/L 40-123 AST (test code = 2218) 18 U/L 9-40 ALT (test code = 2219) 18 U/L 5-40 LIPID [id number] 00:00:00* Test Item Value Reference Range Interpretation Comme nts CHOLESTEROL (test code = 2210) 177 MG/DL TRIGLYCERIDES (test code = 2232) 87 MG/DL HDL CHOLESTEROL (test code = 2220) 45 MG/DL CALC LDL CHOL (test code = 2237) 113 MG/DL RISK RATIO LDL/HDL (test cod e = 2238) 2.51 RATIO Emiliano F Luis AlbertoCOMPREHENSIVE METABOLIC [id number] 00:00:00* Test Item Value Reference Range Interpretation Comme nts GLUCOSE (test code = 2217) 96 MG/DL BUN (test code = 2207) 9 MG/DL CREATININE (test code = 2214) 0.71 MG/DL eGFR (2020 CKD-EPI) (test code = 31992) 105 ML/MIN/1.73 CALC BUN/CREAT (test code = 2235) 13 RATIO SODIUM (test code = 2231) 137 MEQ/L POTASSIUM (test code = 2228) 4.3 MEQ/L CHLORIDE (test code = 2215) 99 MEQ/L CARBON DIOXIDE (test code = 2206) 24 MEQ/L CALCIUM (test code = 2209) 11.2 MG/DL PROTEIN, TOTAL (test code = 2229) 8.7 G/DL ALBUMIN (test code = 2201) 4.3 G/DL CALC GLOBULIN (test code = 2240) 4.4 G/DL CALC A/G RATIO (test code = 2234) 1.0 RATIO BILIRUBIN, TOTAL (test code = 7) 0.3 MG/DL ALKALINE PHOSPHATASE (test code = 2203) 95 U/L AST (test code = 2218) 18 U/L ALT (test code = 2219) 18 U/L Emiliano SahuHEMOGLOBIN [id number] 00:00:00* Test Item Value Reference Range Interpretation Comme nts HEMOGLOBIN A1c (test code = 09530) 6.1 % Emiliano SahuCBC W/AUTO [id number] 00:00:00* Test Item Value Reference Range Interpretation Comme nts WBC (test code = 1001) 5.3 K/UL RBC (test code = 1002) 4.14 M/UL HEMOGLOBIN (test code = 1003) 12.5 G/DL HEMATOCRIT (test code = 1004) 36.9 % MCV (test code = 1005) 89.1 fL MCH (test code = 1006) 30.2 PG MCHC (test code = 1007) 33.9 G/DL RDW (test code = 1038) 13.7 % NEUTROPHILS (test code = 1008) 52.1 % LYMPHOCYTES (test code = 1010) 37.6 % MONOCYTES (test code = 1011) 7.2 % EOSINOPHILS (test code = 1012) 2.5 % BASOPHILS (test code = 1013) 0.4 % IMMATURE GRANULOCYTES (test code = 1036) 0.2 % NUCLEATED RBCS (test code = 1065) 0.0 /100WBC'S PLATELET COUNT (test code = 1015) 212 K/UL ABSOLUTE NEUTROPHILS (test c ode = 1066) 2.76 K/UL ABSOLUTE LYMPHOCYTES (test c ode = 1067) 1.99 K/UL ABSOLUTE MONOCYTES (test cod e = 1068) 0.38 K/UL ABSOLUTE EOSINOPHILS (test c ode = 1040) 0.13 K/UL ABSOLUTE BASOPHILS (test cod e = 1069) 0.02 K/UL ABS IMMATURE GRANULOCYTES (t est code = 1020) 0.01 K/UL ABS NUCLEATED RBCS (test cod e = 16442) 0.00 K/UL Emiliano SahuLIPID [id number] 00:00:00* Test Item Value Reference Range Interpretation Comme nts CHOLESTEROL (test code = 2210) 177 MG/DL TRIGLYCERIDES (test code = 2232) 87 MG/DL HDL CHOLESTEROL (test code = 2220) 45 MG/DL CALC LDL CHOL (test code = 2237) 113 MG/DL RISK RATIO LDL/HDL (test cod e = 2238) 2.51 RATIO Emiliano Mercado Luis AlbertoCOMPREHENSIVE METABOLIC [id number] 00:00:00* Test Item Value Reference Range Interpretation Comme nts GLUCOSE (test code = 2217) 96 MG/DL BUN (test code = 2208) 9 MG/DL CREATININE (test code = 2214) 0.71 MG/DL eGFR (2020 CKD-EPI) (test code = 09510) 105 ML/MIN/1.73 CALC BUN/CREAT (test code = 2235) 13 RATIO SODIUM (test code = 2231) 137 MEQ/L POTASSIUM (test code = 2228) 4.3 MEQ/L CHLORIDE (test code = 2215) 99 MEQ/L CARBON DIOXIDE (test code = 2206) 24 MEQ/L CALCIUM (test code = 2209) 11.2 MG/DL PROTEIN, TOTAL (test code = 2229) 8.7 G/DL ALBUMIN (test code = 2201) 4.3 G/DL CALC GLOBULIN (test code = 2240) 4.4 G/DL CALC A/G RATIO (test code = 2234) 1.0 RATIO BILIRUBIN, TOTAL (test code = 2207) 0.3 MG/DL ALKALINE PHOSPHATASE (test code = 2204) 95 U/L AST (test code = 2218) 18 U/L ALT (test code = 2219) 18 U/L Emiliano SahuHEMOGLOBIN [id number] 00:00:00* Test Item Value Reference Range Interpretation Comme nts HEMOGLOBIN A1c (test code = 92404) 6.1 % Emiliano SahuCBC W/AUTO [id number] 00:00:00* Test Item Value Reference Range Interpretation Comme nts WBC (test code = 1001) 5.3 K/UL RBC (test code = 1002) 4.14 M/UL HEMOGLOBIN (test code = 1003) 12.5 G/DL HEMATOCRIT (test code = 1004) 36.9 % MCV (test code = 1005) 89.1 fL MCH (test code = 1006) 30.2 PG MCHC (test code = 1007) 33.9 G/DL RDW (test code = 1038) 13.7 % NEUTROPHILS (test code = 1008) 52.1 % LYMPHOCYTES (test code = 1010) 37.6 % MONOCYTES (test code = 1011) 7.2 % EOSINOPHILS (test code = 1012) 2.5 % BASOPHILS (test code = 1013) 0.4 % IMMATURE GRANULOCYTES (test code = 1036) 0.2 % NUCLEATED RBCS (test code = 1065) 0.0 /100WBC'S PLATELET COUNT (test code = 1015) 212 K/UL ABSOLUTE NEUTROPHILS (test c ode = 1066) 2.76 K/UL ABSOLUTE LYMPHOCYTES (test c ode = 1067) 1.99 K/UL ABSOLUTE MONOCYTES (test cod e = 1068) 0.38 K/UL ABSOLUTE EOSINOPHILS (test c ode = 1040) 0.13 K/UL ABSOLUTE BASOPHILS (test cod e = 1069) 0.02 K/UL ABS IMMATURE GRANULOCYTES (t est code = 1020) 0.01 K/UL ABS NUCLEATED RBCS (test cod e = 89280) 0.00 K/UL Emiliano SahuLIPID [id number] 00:00:00* Test Item Value Reference Range Interpretation Comme nts CHOLESTEROL (test code = 2210) 177 MG/DL TRIGLYCERIDES (test code = 2232) 87 MG/DL HDL CHOLESTEROL (test code = 2220) 45 MG/DL CALC LDL CHOL (test code = 2237) 113 MG/DL RISK RATIO LDL/HDL (test cod e = 2238) 2.51 RATIO Emiliano SahuCOMPREHENSIVE METABOLIC [id number] 00:00:00* Test Item Value Reference Range Interpretation Comme nts GLUCOSE (test code = 7) 96 MG/DL BUN (test code = 8) 9 MG/DL CREATININE (test code = 2214) 0.71 MG/DL eGFR (2020 CKD-EPI) (test code = ) 105 ML/MIN/1.73 CALC BUN/CREAT (test code = 2235) 13 RATIO SODIUM (test code = 223) 137 MEQ/L POTASSIUM (test code = 2228) 4.3 MEQ/L CHLORIDE (test code = 2215) 99 MEQ/L CARBON DIOXIDE (test code = 2206) 24 MEQ/L CALCIUM (test code = 2209) 11.2 MG/DL PROTEIN, TOTAL (test code = 222) 8.7 G/DL ALBUMIN (test code = 2201) 4.3 G/DL CALC GLOBULIN (test code = 2240) 4.4 G/DL CALC A/G RATIO (test code = 2234) 1.0 RATIO BILIRUBIN, TOTAL (test code = 2206) 0.3 MG/DL ALKALINE PHOSPHATASE (test code = 2204) 95 U/L AST (test code = 2218) 18 U/L ALT (test code = 2219) 18 U/L Emiliano SahuHEMOGLOBIN [id number] 00:00:00* Test Item Value Reference Range Interpretation Comme [facility] HEMOGLOBIN A1c (test code = 46144) 6.1 % Emiliano SahuCBC W/AUTO [id number] 00:00:00* Test Item Value Reference Range Interpretation Comme [facility] WBC (test code = 1001) 5.3 K/UL RBC (test code = 1002) 4.14 M/UL HEMOGLOBIN (test code = 1003) 12.5 G/DL HEMATOCRIT (test code = 1004) 36.9 % MCV (test code = 1005) 89.1 fL MCH (test code = 1006) 30.2 PG MCHC (test code = 1007) 33.9 G/DL RDW (test code = 1038) 13.7 % NEUTROPHILS (test code = 1008) 52.1 % LYMPHOCYTES (test code = 1010) 37.6 % MONOCYTES (test code = 1011) 7.2 % EOSINOPHILS (test code = 1012) 2.5 % BASOPHILS (test code = 1013) 0.4 % IMMATURE GRANULOCYTES (test code = 1036) 0.2 % NUCLEATED RBCS (test code = 1065) 0.0 /100WBC'S PLATELET COUNT (test code = 1015) 212 K/UL ABSOLUTE NEUTROPHILS (test c ode = 1066) 2.76 K/UL ABSOLUTE LYMPHOCYTES (test c ode = 1067) 1.99 K/UL ABSOLUTE MONOCYTES (test cod e = 1068) 0.38 K/UL ABSOLUTE EOSINOPHILS (test c ode = 1040) 0.13 K/UL ABSOLUTE BASOPHILS (test cod e = 1069) 0.02 K/UL ABS IMMATURE GRANULOCYTES (t est code = 1020) 0.01 K/UL ABS NUCLEATED RBCS (test cod e = 43711) 0.00 K/UL Emiliano Mercado Luis AlbertoLIPID [id number] 00:00:00* Test Item Value Reference Range Interpretation Comme nts CHOLESTEROL (test code = 2210) 177 MG/DL TRIGLYCERIDES (test code = 2232) 87 MG/DL HDL CHOLESTEROL (test code = 2220) 45 MG/DL CALC LDL CHOL (test code = 2237) 113 MG/DL RISK RATIO LDL/HDL (test cod e = 2238) 2.51 RATIO Emiliano Mercado Luis AlbertoCOMPREHENSIVE METABOLIC [id number] 00:00:00* Test Item Value Reference Range Interpretation Comme nts GLUCOSE (test code = 2217) 96 MG/DL BUN (test code = 2208) 9 MG/DL CREATININE (test code = 2214) 0.71 MG/DL eGFR (2020 CKD-EPI) (test code = 54867) 105 ML/MIN/1.73 CALC BUN/CREAT (test code = 2235) 13 RATIO SODIUM (test code = 2231) 137 MEQ/L POTASSIUM (test code = 2228) 4.3 MEQ/L CHLORIDE (test code = 2215) 99 MEQ/L CARBON DIOXIDE (test code = 2206) 24 MEQ/L CALCIUM (test code = 2209) 11.2 MG/DL PROTEIN, TOTAL (test code = 2229) 8.7 G/DL ALBUMIN (test code = 2201) 4.3 G/DL CALC GLOBULIN (test code = 2240) 4.4 G/DL CALC A/G RATIO (test code = 2234) 1.0 RATIO BILIRUBIN, TOTAL (test code = 2207) 0.3 MG/DL ALKALINE PHOSPHATASE (test code = 2204) 95 U/L AST (test code = 2218) 18 U/L ALT (test code = 2219) 18 U/L Emiliano SahuHEMOGLOBIN [id number] 00:00:00* Test Item Value Reference Range Interpretation Comme nts HEMOGLOBIN A1c (test code = 06145) 6.1 % Emiliano SahuCBC W/AUTO [id number] 00:00:00* Test Item Value Reference Range Interpretation Comme nts WBC (test code = 1001) 5.3 K/UL RBC (test code = 1002) 4.14 M/UL HEMOGLOBIN (test code = 1003) 12.5 G/DL HEMATOCRIT (test code = 1004) 36.9 % MCV (test code = 1005) 89.1 fL MCH (test code = 1006) 30.2 PG MCHC (test code = 1007) 33.9 G/DL RDW (test code = 1038) 13.7 % NEUTROPHILS (test code = 1008) 52.1 % LYMPHOCYTES (test code = 1010) 37.6 % MONOCYTES (test code = 1011) 7.2 % EOSINOPHILS (test code = 1012) 2.5 % BASOPHILS (test code = 1013) 0.4 % IMMATURE GRANULOCYTES (test code = 1036) 0.2 % NUCLEATED RBCS (test code = 1065) 0.0 /100WBC'S PLATELET COUNT (test code = 1015) 212 K/UL ABSOLUTE NEUTROPHILS (test c ode = 1066) 2.76 K/UL ABSOLUTE LYMPHOCYTES (test c ode = 1067) 1.99 K/UL ABSOLUTE MONOCYTES (test cod e = 1068) 0.38 K/UL ABSOLUTE EOSINOPHILS (test c ode = 1040) 0.13 K/UL ABSOLUTE BASOPHILS (test cod e = 1069) 0.02 K/UL ABS IMMATURE GRANULOCYTES (t est code = 1020) 0.01 K/UL ABS NUCLEATED RBCS (test cod e = 95040) 0.00 K/UL Emiliano SahuCT ABDOMEN PELVIS WO [id number] 01:50:36EXAM: CT ABDOMEN PELVIS WO CONTRAST HISTORY: 48 years-old Female Flank pain, kidney stone suspectedCOMPARISON: CT dated 12/04/2022. TECHNIQUE AND FINDINGS: Contiguous axial imaging from the level of the lungbases through the pubic symphysis was performed. Coronal and sagittalreconstructions were obtained. ?Auto mA and/or iterative reconstructionwere used to reduce radiation dose. FINDINGS: Limited evaluation of solid organ without administration intravenouscontrast. LOWER THORAX: Parenchymal bands are seen at both lung bases. LIVER: No focal hepatic lesions. ?Normal contour. GALLBLADDER AND BILIARY TREE: No intra or extrahepatic biliary dilatation.No gallbladder wall thickening. SPLEEN: No splenomegaly PANCREAS: No ductal dilation or masses. ADRENAL GLANDS: No adrenal nodules. KIDNEYS: Small bilateral renal stones are seen. No hydronephrosis ormasses. GI TRACT: No dilation or abnormal wall thickening. PERITONEUM AND RETROPERITONEUM: No free air or fluid. LYMPH NODES: No lymphadenopathy. PELVIS/BLADDER: Circumferential urinary bladder wall thickening out ofproportion for the degree of distention. VESSELS: Limited evaluation without IV contrast. BONES AND SOFT TISSUES: No suspiciouslytic or sclerotic bony lesions.[facility]. Metabolic Panel ([id number])2023-07-26 01:48:34* Test Item Value Reference Range Interpretation Comme nts NA (test code = 7873387556) 139 mmol/L 135-145 K (test code = 9477766590) 4.1 mmol/L 3.5-5.0 CL (test code = 3597923113) 101 mmol/L 98-108 CO2 TOTAL (test code = 3428375029) 28 mmol/L 23-31 AGAP (test code = 3521720043) 10 2-16 BUN (test code = 6493572682) 14 mg/dL 7-23 GLUCOSE (test code = 7050101196) 86 mg/dL 70-110 CREATININE (test code = 2160-0) 0.83 mg/dL 0.50-1.04 TOTAL BILI (test code = 2442825389) 0.4 mg/dL 0.1-1.1 CALCIUM (test code = 6360877439) 10.9 mg/dL 8.6-10.6 H T PROTEIN (test code = 6487215923) 8.5 g/dL 6.3-8.2 H ALBUMIN (test code = 9194208185) 4.3 g/dL 3.5-5.0 ALK PHOS (test code = 0783134081) 109 U/L 34-122 ALTv (test code = 1742-6) 28 U/L 5-35 AST(SGOT) (test code = 9464295625) 28 U/L 13-40 eGFR (test code = 94856-2) 87.1 mL/min/1.73m2 CKD-EPI eGFR (2020). Assuming creatinine has been stable day-to-day for at least three months, the eGFR indicates Category G2 (60 - 89 mL/min/1.73 m2) Lab Interpretation (test code = 26796-8) Abnormal [facility] with [id number] 01:44:34* Test Item Value Reference Range Interpretation Comme nts WBC (test code = 6690-2) 5.97 4.30-11.10 RBC (test code = 789-8) 4.10 3.93-5.25 HGB (test code = 718-7) 12.5 g/dL 11.6-15.0 HCT (test code = 4544-3) 38.5 % 35.7-45.2 MCV (test code = 787-2) 93.9 fL 80.6-95.5 MCH (test code = 785-6) 30.5 pg 25.9-32.8 MCHC (test code = 786-4) 32.5 g/dL 31.6-35.1 RDW-SD (test code = 75800-1) 45.0 fL 39.0-49.9 RDW-CV (test code = 788-0) 13.2 % 12.0-15.5 PLT (test code = 777-3) 173 166-358 MPV (test code = 28971-0) 10.5 fL 9.5-12.9 NRBC/100 WBC (test code = 1950957417) 0.0 0.0-10.0 NRBC x10^3 (test code = 2519343094) See_Comment [Automated me ssage] The system which generated this result transmitted reference range: 10*3/?L. The reference range was not used to interpret this result as normal/abnormal. GRAN MAT (NEUT) % (test code = 770-8) 47.1 % IMM GRAN % (test code = 5739250864) 0.30 % LYMPH % (test code = 736-9) 43.0 % MONO % (test code = 5905-5) 6.4 % EOS % (test code = 713-8) 2.7 % BASO % (test code = 706-2) 0.5 % GRAN MAT x10^3(ANC) (test code = 3886820627) 2.81 10*3/uL 1.88-7.09 IMM GRAN x10^3 (test code = 0167825979) 0.00-0.06 LYMPH x10^3 (test code = 731-0) 2.57 10*3/uL 1.32-3.29 MONO x10^3 (test code = 742-7) 0.38 10*3/uL 0.33-0.92 EOS x10^3 (test code = 711-2) 0.16 10*3/uL 0.03-0.39 BASO x10^3 (test code = 704-7) 0.03 10*3/uL 0.01-0.07 [facility] (NA, K, CL, CO2, GLUCOSE, BUN, CREATININE, CA)2022-12-05 02:15:38* Test Item Value Reference Range Interpretation Comme nts NA (test code = 6241951101) 138 mmol/L 135-145 K (test code = 1075688313) 3.9 mmol/L 3.5-5.0 CL (test code = 5853627503) 101 mmol/L 98-108 CO2 TOTAL (test code = 5605638126) 28 mmol/L 23-31 AGAP (test code = 9667139916) 9 2-16 BUN (test code = 9948812989) 8 mg/dL 7-23 GLUCOSE (test code = 5579927483) 101 mg/dL 70-110 CREATININE (test code = 4124023350) 0.69 mg/dL 0.50-1.04 CALCIUM (test code = 8540245721) 10.8 mg/dL 8.6-10.6 H eGFR (test code = 7213871658) 91.2 mL/min/1.73m2 YANIRA (test code = YANIRA) Association [...] imaging tests). Lab Interpretation (test code = 00509-9) Abnormal [facility] WITH [id number] 02:02:56* Test Item Value Reference Range Interpretation Comme nts WBC (test code = 6690-2) 5.67 See_Comment [VoltDB] The system which generated this result transmitted reference range: 4.30 - 11.10 10*3/?L. The reference range was not used to interpret this result as normal/abnormal. RBC (test code = 789-8) 4.02 See_Comment [Automated Specpage] The system which generated this result transmitted reference range: 3.93 - 5.25 10*6/?L. The reference range was not used to interpret this result as normal/abnormal. HGB (test code = 718-7) 12.3 g/dL 11.6-15.0 HCT (test code = 4544-3) 36.6 % 35.7-45.2 MCV (test code = 787-2) 91.0 fL 80.6-95.5 MCH (test code = 785-6) 30.6 pg 25.9-32.8 MCHC (test code = 786-4) 33.6 g/dL 31.6-35.1 RDW-SD (test code = 02580-1) 42.7 fL 39.0-49.9 RDW-CV (test code = 788-0) 12.9 % 12.0-15.5 PLT (test code = 777-3) 202 See_Comment [Automated messa ge] The system which generated this result transmitted reference range: 166 - 358 10*3/?L. The reference range was not used to interpret this result as normal/abnormal. MPV (test code = 67974-5) 10.5 fL 9.5-12.9 NRBC/100 WBC (test code = 8488316340) 0.0 See_Comment [Automated me ssage] The system which generated this result transmitted reference range: 0.0 - 10.0 /100 WBCs. The reference range was not used to interpret this result as normal/abnormal. NRBC x10^3 (test code = 4599832298) See_Comment [Automated me ssage] The system which generated this result transmitted reference range: 10*3/?L. The reference range was not used to interpret this result as normal/abnormal. GRAN MAT (NEUT) % (test code = 770-8) 47.6 % IMM GRAN % (test code = 7400710083) 0.20 % LYMPH % (test code = 736-9) 41.6 % MONO % (test code = 5905-5) 7.4 % EOS % (test code = 713-8) 2.8 % BASO % (test code = 706-2) 0.4 % GRAN MAT x10^3(ANC) (test code = 0202256249) 2.70 10*3/uL 1.88-7.09 IMM GRAN x10^3 (test code = 7741705189) 0.00-0.06 LYMPH x10^3 (test code = 731-0) 2.36 10*3/uL 1.32-3.29 MONO x10^3 (test code = 742-7) 0.42 10*3/uL 0.33-0.92 EOS x10^3 (test code = 711-2) 0.16 10*3/uL 0.03-0.39 BASO x10^3 (test code = 704-7) 0.01-0.07 [facility] RFLX MICR CULT IF [id number] 01:04:00* Test Item Value Reference Range Interpretation Comme nts UA COLOR (test code = COLU) STRAW discript YEL/STRAW UA APPEARANCE (test code = APPU) CLEAR discript CLEAR UA GLUCOSE DIPSTICK (test code = DGLUU) NEGATIVE mg/dL NEG UA BILIRUBIN DIPSTICK (test code = BILU) NEGATIVE mg/dL NEG UA KETONE DIPSTICK (test code = KETU) NEGATIVE mg/dL NEG UA SPECIFIC GRAVITY (test code = SGU) <=1.005 SG 1.005-1.030 UA BLOOD DIPSTICK (test code = CASS) NEGATIVE mg/DL NEG UA PH DIPSTICK (test code = PERNELL) 7.0 pH UNITS 5.0-7.0 UA PROTEIN DIPSTICK (test code = PROU) NEGATIVE mg/dL NEG UA UROBILINIOGEN DIPSTICK (test code = URO) 0.2 mg/dL <2.0 UA NITRITE DIPSTICK (test code = JOHN) NEGATIVE SCREEN NEG UA LEUKOCYTE ESTERASE DIPSTICK (test code = LEUU) NEGATIVE Leuk/mcL NEGATIVE Indication for culture: Suprapubic PainSOURCE OF URINE: MIDSTREAMUR HCG QUAL 2022-12-01 01:04:00* Test Item Value Reference Range Interpretation Comme nts UR HCG QUAL (test code = HCGQLU) NEGATIVE NEGATIVE Indication for culture: Suprapubic PainSOURCE OF URINE: MIDSTREAMTROPONIN I 2022-11-23 06:42:10* Test Item Value Reference Range Interpretation Comme nts TROPONIN I (test code = 9844191876) 0.005 ng/mL <=0.034 YANIRA (test code = YANIRA) Reference (Normal) Range (defined by the 99th percentile reference limit): <= 0.034 ng/mL Note: Cardiac troponin begins to rise 3-4 hours after the onset of ischemia. Repeat in 4-6 hours if the sample was drawn within 3-4 hours of the onset of the symptom and found normal. Diagnosis of myocardial injury is made with acute changes in cTn concentrations with at least one serial sample above the 99th percentile upper reference limit (URL), taken together with the patient's clinical presentation. Biotin has been reported to cause a negative bias, interpret results relative to patient's use of biotin. Lab Interpretation (test code = 90405-2) [facility] BranchCAL[facility], [id number] 13:20:49* Test Item Value Reference Range Interpretation Comme nts CALCIUM, IONIZED (test code = 98581) 5.51 MG/DL 4.70-5.90 [facility] has important pathology staff changes effective 05/24/2022. New pathology staff will provide uninterrupted, excellent patient care and clinical consultation. See URL: [email or web address]. UNLESS OTHERWISE INDICATED, ALL TESTING PERFORMED AT [facility] [address] [place] [address] CARTOGRAPHY TECHNICIAN: KAREN GARNETT M.D. [place] NUMBER [id number] [facility] [place] [place]. [id number] CALCIUM, [id number] 00:00:00* Test Item Value Reference Range Interpretation Comme nts CALCIUM, IONIZED (test code = 89553) 5.51 MG/DL Emiliano Rogelio AustinCALCIUM, [id number] 00:00:00* Test Item Value Reference Range Interpretation Comme nts CALCIUM, IONIZED (test code = 64645) 5.51 MG/DL Emiliano F AustinCALCIUM, [id number] 00:00:00* Test Item Value Reference Range Interpretation Comme nts CALCIUM, IONIZED (test code = 19892) 5.51 MG/DL Emiliano F AustinCALCIUM, [id number] 00:00:00* Test Item Value Reference Range Interpretation Comme nts CALCIUM, IONIZED (test code = 20595) 5.51 MG/DL Emiliano F AustinCALCIUM, [id number] 00:00:00* Test Item Value Reference Range Interpretation Comme nts CALCIUM, IONIZED (test code = 97356) 5.51 MG/DL Emiliano Rogelio AustinTSH, THIRD [id number] 09:33:10* Test Item Value Reference Range Interpretation Comme nts TSH, THIRD GENERATION (test code = 2821) 0.719 UIU/ML 0.400-4.100 HEMOGLOBIN [id number] 04:15:27* Test Item Value Reference Range Interpretation Comme nts HEMOGLOBIN A1c (test code = 26744) 6.3 % 4.2-5.6 H [employer] GUIDELINES FOR HGB A1C: PREDIABETES/INCREASED RISK . . . . . . . 5.7-6.4% DIAGNOSIS OF DIABETES . . . . . . . . . >=6.5% WITH CONFIRMATION OR APPROPRIATE SYMPTOMS NOTE: ASSAY MAY BE AFFECTED BY HEMOGLOBINOPATHIES (SICKLE CELL ANEMIA, S-C DISEASE, OTHERS) OR ARTIFICIALLY LOWERED BY DECREASED RED CELL SURVIVAL (HEMOLYTIC ANEMIAS, BLOOD LOSS, ETC.). CONSIDER ALTERNATE TESTING OR LABORATORY CONSULTATION. LIPID [id number] 03:51:44* Test Item Value Reference Range Interpretation Comme nts CHOLESTEROL (test code = 2210) 163 MG/DL <200 TRIGLYCERIDES (test code = 2232) 97 MG/DL <150 HDL CHOLESTEROL (test code = 2220) 41 MG/DL >39 CALC LDL CHOL (test code = 2237) 103 MG/DL <100 H NOTE: CALCULATED LDL IS BASED ON LAURA-FERREIRA METHOD WHICHINCLUDES ADJUSTABLE TRIGLYCERIDE:VLDL CHOLESTEROL RATIO.THIS FACTOR VARIES BY MEASURED TRIGLYCERIDE AND NON-HDLCHOLESTEROL CONCENTRATIONS WITH INCREASED CALCULATED LDL SEENIN HIGHER TRIGLYCERIDE OR LOWER NON-HDL SPECIMENS. FOR MOREINFORMATION, SEE CLIENT ANNOUNCEMENT AT [email or web address] RATIO LDL/HDL (test code = 2238) 2.51 RATIO <3.22 COMPREHENSIVE METABOLIC [id number] 03:51:44* Test Item Value Reference Range Interpretation Comme nts GLUCOSE (test code = 2217) 102 MG/DL 70-99 H BUN (test code = 2208) 10 MG/DL 6-20 CREATININE (test code = 2214) 0.64 MG/DL 0.60-1.30 eGFR (2020 CKD-EPI) (test code = 47316) 110 ML/MIN/1.73 >60 CALC BUN/CREAT (test code = 2235) 16 RATIO 6-28 SODIUM (test code = 223) 139 MEQ/L 133-146 POTASSIUM (test code = 2228) 4.2 MEQ/L 3.5-5.4 CHLORIDE (test code = 2215) 100 MEQ/L 95-107 CARBON DIOXIDE (test code = 2206) 25 MEQ/L 19-31 CALCIUM (test code = 2209) 11.1 MG/DL 8.5-10.5 H PROTEIN, TOTAL (test code = 2229) 8.6 G/DL 6.1-8.3 H ALBUMIN (test code = 2201) 4.2 G/DL 3.5-5.2 CALC GLOBULIN (test code = 2240) 4.4 G/DL 1.9-3.7 H CALC A/G RATIO (test code = 2234) 1.0 RATIO 1.0-2.6 BILIRUBIN, TOTAL (test code = 2206) 0.4 MG/DL See_Comment [Automated me ssage] The system which generated this result transmitted reference range: <=1.2. The reference range was not used to interpret this result as normal/abnormal. ALKALINE PHOSPHATASE (test code = 2203) 97 U/L 40-120 AST (test code = 221) 21 U/L 9-40 ALT (test code = 2219) 18 U/L 5-40 CBC W/AUTO DIFF WITH [id number] 01:57:39* Test Item Value Reference Range Interpretation Comme nts WBC (test code = 1001) 4.7 K/UL 3.5-11.0 RBC (test code = 1002) 4.16 M/UL 3.80-5.40 HEMOGLOBIN (test code = 1003) 12.4 G/DL 11.5-15.5 HEMATOCRIT (test code = 1004) 37.2 % 34.0-45.0 MCV (test code = 1005) 89.4 fL 80.0-99.0 MCH (test code = 1006) 29.8 PG 25.0-33.0 MCHC (test code = 1007) 33.3 G/DL 31.0-36.0 RDW (test code = 1038) 13.5 % 11.5-15.0 NEUTROPHILS (test code = 1008) 49.0 % LYMPHOCYTES (test code = 1010) 40.3 % MONOCYTES (test code = 1011) 7.5 % EOSINOPHILS (test code = 1012) 2.8 % BASOPHILS (test code = 1013) 0.2 % IMMATURE GRANULOCYTES (test code = 1036) 0.2 % NUCLEATED RBCS (test code = 1065) 0.0 /100 WBC'S See_Comment [Automated message] The system which generated this result transmitted reference range: 0.0. The reference range was not used to interpret this result as normal/abnormal. PLATELET COUNT (test code = 1015) 206 K/UL 130-400 ABSOLUTE NEUTROPHILS (test code = 1066) 2.30 K/UL 1.50-7.50 ABSOLUTE LYMPHOCYTES (test code = 1067) 1.89 K/UL 1.00-4.00 ABSOLUTE MONOCYTES (test code = 1068) 0.35 K/UL 0.20-1.00 ABSOLUTE EOSINOPHILS (test code = 1040) 0.13 K/UL 0.00-0.50 ABSOLUTE BASOPHILS (test code = 1069) 0.01 K/UL 0.00-0.20 ABS IMMATURE GRANULOCYTES (test code = 1020) 0.01 K/UL 0.00-0.10 ABS NUCLEATED RBCS (test code = 65203) 0.00 K/UL 0.00-0.11 [facility] has important pathology staff changes effective 05/24/2022. New pathology staff will provide uninterrupted, excellent patient care and clinical consultation. See URL: [email or web address]. UNLESS OTHERWISE INDICATED, ALL TESTING PERFORMED AT [facility] [address] [place] [address] CARTOGRAPHY TECHNICIAN: KAREN GARNETT M.D. CLIA NUMBER [id number] [facility] [place]. [id number] TSH, THIRD [id number] 00:00:00* Test Item Value Reference Range Interpretation Comme nts TSH, THIRD GENERATION (test code = 2821) 0.719 UIU/ML Emiliano Mercado Luis AlbertoCB W/AUTO [id number] 00:00:00* Test Item Value Reference Range Interpretation Comme nts WBC (test code = 1001) 4.7 K/UL RBC (test code = 1002) 4.16 M/UL HEMOGLOBIN (test code = 1003) 12.4 G/DL HEMATOCRIT (test code = 1004) 37.2 % MCV (test code = 1005) 89.4 fL MCH (test code = 1006) 29.8 PG MCHC (test code = 1007) 33.3 G/DL RDW (test code = 1038) 13.5 % NEUTROPHILS (test code = 1008) 49.0 % LYMPHOCYTES (test code = 1010) 40.3 % MONOCYTES (test code = 1011) 7.5 % EOSINOPHILS (test code = 1012) 2.8 % BASOPHILS (test code = 1013) 0.2 % IMMATURE GRANULOCYTES (test code = 1036) 0.2 % NUCLEATED RBCS (test code = 1065) 0.0 /100WBC'S PLATELET COUNT (test code = 1015) 206 K/UL ABSOLUTE NEUTROPHILS (test c ode = 1066) 2.30 K/UL ABSOLUTE LYMPHOCYTES (test c ode = 1067) 1.89 K/UL ABSOLUTE MONOCYTES (test cod e = 1068) 0.35 K/UL ABSOLUTE EOSINOPHILS (test c ode = 1040) 0.13 K/UL ABSOLUTE BASOPHILS (test cod e = 1069) 0.01 K/UL ABS IMMATURE GRANULOCYTES (t est code = 1020) 0.01 K/UL ABS NUCLEATED RBCS (test cod e = 97564) 0.00 K/UL Emiliano Rogelio AustinLIPID [id number] 00:00:00* Test Item Value Reference Range Interpretation Comme nts CHOLESTEROL (test code = 2210) 163 MG/DL TRIGLYCERIDES (test code = 2232) 97 MG/DL HDL CHOLESTEROL (test code = 2220) 41 MG/DL CALC LDL CHOL (test code = 2237) 103 MG/DL RISK RATIO LDL/HDL (test cod e = 2238) 2.51 RATIO Emiliano SahuCOMPREHENSIVE METABOLIC [id number] 00:00:00* Test Item Value Reference Range Interpretation Comme nts GLUCOSE (test code = 2217) 102 MG/DL BUN (test code = 2208) 10 MG/DL CREATININE (test code = 2214) 0.64 MG/DL eGFR (2020 CKD-EPI) (test code = 14742) 110 ML/MIN/1.73 CALC BUN/CREAT (test code = 2235) 16 RATIO SODIUM (test code = 2231) 139 MEQ/L POTASSIUM (test code = 2228) 4.2 MEQ/L CHLORIDE (test code = 2215) 100 MEQ/L CARBON DIOXIDE (test code = 2206) 25 MEQ/L CALCIUM (test code = 2209) 11.1 MG/DL PROTEIN, TOTAL (test code = 2229) 8.6 G/DL ALBUMIN (test code = 2201) 4.2 G/DL CALC GLOBULIN (test code = 2240) 4.4 G/DL CALC A/G RATIO (test code = 2234) 1.0 RATIO BILIRUBIN, TOTAL (test code = 2207) 0.4 MG/DL ALKALINE PHOSPHATASE (test code = 2204) 97 U/L AST (test code = 2218) 21 U/L ALT (test code = 2219) 18 U/L Emiliano SahuHEMOGLOBIN [id number] 00:00:00* Test Item Value Reference Range Interpretation Comme nts HEMOGLOBIN A1c (test code = 78765) 6.3 % Emiliano SahuTSH, THIRD [id number] 00:00:00* Test Item Value Reference Range Interpretation Comme nts TSH, THIRD GENERATION (test code = 2821) 0.719 UIU/ML Emiliano SahuCBC W/AUTO [id number] 00:00:00* Test Item Value Reference Range Interpretation Comme nts WBC (test code = 1001) 4.7 K/UL RBC (test code = 1002) 4.16 M/UL HEMOGLOBIN (test code = 1003) 12.4 G/DL HEMATOCRIT (test code = 1004) 37.2 % MCV (test code = 1005) 89.4 fL MCH (test code = 1006) 29.8 PG MCHC (test code = 1007) 33.3 G/DL RDW (test code = 1038) 13.5 % NEUTROPHILS (test code = 1008) 49.0 % LYMPHOCYTES (test code = 1010) 40.3 % MONOCYTES (test code = 1011) 7.5 % EOSINOPHILS (test code = 1012) 2.8 % BASOPHILS (test code = 1013) 0.2 % IMMATURE GRANULOCYTES (test code = 1036) 0.2 % NUCLEATED RBCS (test code = 1065) 0.0 /100WBC'S PLATELET COUNT (test code = 1015) 206 K/UL ABSOLUTE NEUTROPHILS (test c ode = 1066) 2.30 K/UL ABSOLUTE LYMPHOCYTES (test c ode = 1067) 1.89 K/UL ABSOLUTE MONOCYTES (test cod e = 1068) 0.35 K/UL ABSOLUTE EOSINOPHILS (test c ode = 1040) 0.13 K/UL ABSOLUTE BASOPHILS (test cod e = 1069) 0.01 K/UL ABS IMMATURE GRANULOCYTES (t est code = 1020) 0.01 K/UL ABS NUCLEATED RBCS (test cod e = 06439) 0.00 K/UL Emiliano SahuLIPID [id number] 00:00:00* Test Item Value Reference Range Interpretation Comme nts CHOLESTEROL (test code = 2210) 163 MG/DL TRIGLYCERIDES (test code = 2232) 97 MG/DL HDL CHOLESTEROL (test code = 2220) 41 MG/DL CALC LDL CHOL (test code = 2237) 103 MG/DL RISK RATIO LDL/HDL (test cod e = 2238) 2.51 RATIO Emiliano SahuCOMPREHENSIVE METABOLIC [id number] 00:00:00* Test Item Value Reference Range Interpretation Comme nts GLUCOSE (test code = 2217) 102 MG/DL BUN (test code = 2208) 10 MG/DL CREATININE (test code = 2214) 0.64 MG/DL eGFR (2020 CKD-EPI) (test code = 18951) 110 ML/MIN/1.73 CALC BUN/CREAT (test code = 2235) 16 RATIO SODIUM (test code = 2231) 139 MEQ/L POTASSIUM (test code = 2228) 4.2 MEQ/L CHLORIDE (test code = 2215) 100 MEQ/L CARBON DIOXIDE (test code = 2206) 25 MEQ/L CALCIUM (test code = 2209) 11.1 MG/DL PROTEIN, TOTAL (test code = 2229) 8.6 G/DL ALBUMIN (test code = 2201) 4.2 G/DL CALC GLOBULIN (test code = 2240) 4.4 G/DL CALC A/G RATIO (test code = 2234) 1.0 RATIO BILIRUBIN, TOTAL (test code = 2207) 0.4 MG/DL ALKALINE PHOSPHATASE (test code = 2204) 97 U/L AST (test code = 2218) 21 U/L ALT (test code = 2219) 18 U/L Emiliaon SahuHEMOGLOBIN [id number] 00:00:00* Test Item Value Reference Range Interpretation Comme nts HEMOGLOBIN A1c (test code = 04993) 6.3 % Emiliano F AustinTSH, THIRD [id number] 00:00:00* Test Item Value Reference Range Interpretation Comme nts TSH, THIRD GENERATION (test code = 2821) 0.719 UIU/ML Emiliano SahuCBC W/AUTO [id number] 00:00:00* Test Item Value Reference Range Interpretation Comme nts WBC (test code = 1001) 4.7 K/UL RBC (test code = 1002) 4.16 M/UL HEMOGLOBIN (test code = 1003) 12.4 G/DL HEMATOCRIT (test code = 1004) 37.2 % MCV (test code = 1005) 89.4 fL MCH (test code = 1006) 29.8 PG MCHC (test code = 1007) 33.3 G/DL RDW (test code = 1038) 13.5 % NEUTROPHILS (test code = 1008) 49.0 % LYMPHOCYTES (test code = 1010) 40.3 % MONOCYTES (test code = 1011) 7.5 % EOSINOPHILS (test code = 1012) 2.8 % BASOPHILS (test code = 1013) 0.2 % IMMATURE GRANULOCYTES (test code = 1036) 0.2 % NUCLEATED RBCS (test code = 1065) 0.0 /100WBC'S PLATELET COUNT (test code = 1015) 206 K/UL ABSOLUTE NEUTROPHILS (test c ode = 1066) 2.30 K/UL ABSOLUTE LYMPHOCYTES (test c ode = 1067) 1.89 K/UL ABSOLUTE MONOCYTES (test cod e = 1068) 0.35 K/UL ABSOLUTE EOSINOPHILS (test c ode = 1040) 0.13 K/UL ABSOLUTE BASOPHILS (test cod e = 1069) 0.01 K/UL ABS IMMATURE GRANULOCYTES (t est code = 1020) 0.01 K/UL ABS NUCLEATED RBCS (test cod e = 29362) 0.00 K/UL Emiliano SahuLIPID [id number] 00:00:00* Test Item Value Reference Range Interpretation Comme nts CHOLESTEROL (test code = 2210) 163 MG/DL TRIGLYCERIDES (test code = 2232) 97 MG/DL HDL CHOLESTEROL (test code = 2220) 41 MG/DL CALC LDL CHOL (test code = 2237) 103 MG/DL RISK RATIO LDL/HDL (test cod e = 2238) 2.51 RATIO mEiliano SahuCOMPREHENSIVE METABOLIC [id number] 00:00:00* Test Item Value Reference Range Interpretation Comme nts GLUCOSE (test code = 7) 102 MG/DL BUN (test code = 8) 10 MG/DL CREATININE (test code = 2214) 0.64 MG/DL eGFR (2020 CKD-EPI) (test code = 66601) 110 ML/MIN/1.73 CALC BUN/CREAT (test code = 2235) 16 RATIO SODIUM (test code = 2231) 139 MEQ/L POTASSIUM (test code = 2228) 4.2 MEQ/L CHLORIDE (test code = 2215) 100 MEQ/L CARBON DIOXIDE (test code = 2206) 25 MEQ/L CALCIUM (test code = 2209) 11.1 MG/DL PROTEIN, TOTAL (test code = 222) 8.6 G/DL ALBUMIN (test code = 220) 4.2 G/DL CALC GLOBULIN (test code = 2240) 4.4 G/DL CALC A/G RATIO (test code = 2234) 1.0 RATIO BILIRUBIN, TOTAL (test code = 2206) 0.4 MG/DL ALKALINE PHOSPHATASE (test code = 2204) 97 U/L AST (test code = 2218) 21 U/L ALT (test code = 2219) 18 U/L Emiliano SahuHEMOGLOBIN [id number] 00:00:00* Test Item Value Reference Range Interpretation Comme [facility] HEMOGLOBIN A1c (test code = 20635) 6.3 % Emiliano SahuTSH, THIRD [id number] 00:00:00* Test Item Value Reference Range Interpretation Comme [facility] TSH, THIRD GENERATION (test code = 2821) 0.719 UIU/ML Emiliano SahuCBC W/AUTO [id number] 00:00:00* Test Item Value Reference Range Interpretation Comme nts WBC (test code = 1001) 4.7 K/UL RBC (test code = 1002) 4.16 M/UL HEMOGLOBIN (test code = 1003) 12.4 G/DL HEMATOCRIT (test code = 1004) 37.2 % MCV (test code = 1005) 89.4 fL MCH (test code = 1006) 29.8 PG MCHC (test code = 1007) 33.3 G/DL RDW (test code = 1038) 13.5 % NEUTROPHILS (test code = 1008) 49.0 % LYMPHOCYTES (test code = 1010) 40.3 % MONOCYTES (test code = 1011) 7.5 % EOSINOPHILS (test code = 1012) 2.8 % BASOPHILS (test code = 1013) 0.2 % IMMATURE GRANULOCYTES (test code = 1036) 0.2 % NUCLEATED RBCS (test code = 1065) 0.0 /100WBC'S PLATELET COUNT (test code = 1015) 206 K/UL ABSOLUTE NEUTROPHILS (test c ode = 1066) 2.30 K/UL ABSOLUTE LYMPHOCYTES (test c ode = 1067) 1.89 K/UL ABSOLUTE MONOCYTES (test cod e = 1068) 0.35 K/UL ABSOLUTE EOSINOPHILS (test c ode = 1040) 0.13 K/UL ABSOLUTE BASOPHILS (test cod e = 1069) 0.01 K/UL ABS IMMATURE GRANULOCYTES (t est code = 1020) 0.01 K/UL ABS NUCLEATED RBCS (test cod e = 77028) 0.00 K/UL Emiliano Mercado AustinLIPID [id number] 00:00:00* Test Item Value Reference Range Interpretation Comme nts CHOLESTEROL (test code = 2210) 163 MG/DL TRIGLYCERIDES (test code = 2232) 97 MG/DL HDL CHOLESTEROL (test code = 2220) 41 MG/DL CALC LDL CHOL (test code = 2237) 103 MG/DL RISK RATIO LDL/HDL (test cod e = 2238) 2.51 RATIO Emiliano SahuCOMPREHENSIVE METABOLIC [id number] 00:00:00* Test Item Value Reference Range Interpretation Comme nts GLUCOSE (test code = 2217) 102 MG/DL BUN (test code = 2208) 10 MG/DL CREATININE (test code = 2214) 0.64 MG/DL eGFR (2020 CKD-EPI) (test code = 64981) 110 ML/MIN/1.73 CALC BUN/CREAT (test code = 2235) 16 RATIO SODIUM (test code = 2231) 139 MEQ/L POTASSIUM (test code = 2228) 4.2 MEQ/L CHLORIDE (test code = 2215) 100 MEQ/L CARBON DIOXIDE (test code = 2206) 25 MEQ/L CALCIUM (test code = 2209) 11.1 MG/DL PROTEIN, TOTAL (test code = 2229) 8.6 G/DL ALBUMIN (test code = 2201) 4.2 G/DL CALC GLOBULIN (test code = 2240) 4.4 G/DL CALC A/G RATIO (test code = 2234) 1.0 RATIO BILIRUBIN, TOTAL (test code = 2207) 0.4 MG/DL ALKALINE PHOSPHATASE (test code = 2204) 97 U/L AST (test code = 2218) 21 U/L ALT (test code = 2219) 18 U/L Emiliano SahuHEMOGLOBIN [id number] 00:00:00* Test Item Value Reference Range Interpretation Comme nts HEMOGLOBIN A1c (test code = 63396) 6.3 % Emiliano SahuTSH, THIRD [id number] 00:00:00* Test Item Value Reference Range Interpretation Comme nts TSH, THIRD GENERATION (test code = 2821) 0.719 UIU/ML Emiliano SahuCBC W/AUTO [id number] 00:00:00* Test Item Value Reference Range Interpretation Comme nts WBC (test code = 1001) 4.7 K/UL RBC (test code = 1002) 4.16 M/UL HEMOGLOBIN (test code = 1003) 12.4 G/DL HEMATOCRIT (test code = 1004) 37.2 % MCV (test code = 1005) 89.4 fL MCH (test code = 1006) 29.8 PG MCHC (test code = 1007) 33.3 G/DL RDW (test code = 1038) 13.5 % NEUTROPHILS (test code = 1008) 49.0 % LYMPHOCYTES (test code = 1010) 40.3 % MONOCYTES (test code = 1011) 7.5 % EOSINOPHILS (test code = 1012) 2.8 % BASOPHILS (test code = 1013) 0.2 % IMMATURE GRANULOCYTES (test code = 1036) 0.2 % NUCLEATED RBCS (test code = 1065) 0.0 /100WBC'S PLATELET COUNT (test code = 1015) 206 K/UL ABSOLUTE NEUTROPHILS (test c ode = 1066) 2.30 K/UL ABSOLUTE LYMPHOCYTES (test c ode = 1067) 1.89 K/UL ABSOLUTE MONOCYTES (test cod e = 1068) 0.35 K/UL ABSOLUTE EOSINOPHILS (test c ode = 1040) 0.13 K/UL ABSOLUTE BASOPHILS (test cod e = 1069) 0.01 K/UL ABS IMMATURE GRANULOCYTES (t est code = 1020) 0.01 K/UL ABS NUCLEATED RBCS (test cod e = 43910) 0.00 K/UL Emiliano SahuLIPID [id number] 00:00:00* Test Item Value Reference Range Interpretation Comme nts CHOLESTEROL (test code = 2210) 163 MG/DL TRIGLYCERIDES (test code = 2232) 97 MG/DL HDL CHOLESTEROL (test code = 2220) 41 MG/DL CALC LDL CHOL (test code = 2237) 103 MG/DL RISK RATIO LDL/HDL (test cod e = 2238) 2.51 RATIO Emiliano SahuCOMPREHENSIVE METABOLIC [id number] 00:00:00* Test Item Value Reference Range Interpretation Comme nts GLUCOSE (test code = 2217) 102 MG/DL BUN (test code = 2208) 10 MG/DL CREATININE (test code = 2214) 0.64 MG/DL eGFR (2020 CKD-EPI) (test code = 31015) 110 ML/MIN/1.73 CALC BUN/CREAT (test code = 2235) 16 RATIO SODIUM (test code = 2231) 139 MEQ/L POTASSIUM (test code = 2228) 4.2 MEQ/L CHLORIDE (test code = 2215) 100 MEQ/L CARBON DIOXIDE (test code = 2206) 25 MEQ/L CALCIUM (test code = 2209) 11.1 MG/DL PROTEIN, TOTAL (test code = 2229) 8.6 G/DL ALBUMIN (test code = 2201) 4.2 G/DL CALC GLOBULIN (test code = 2240) 4.4 G/DL CALC A/G RATIO (test code = 2234) 1.0 RATIO BILIRUBIN, TOTAL (test code = 2207) 0.4 MG/DL ALKALINE PHOSPHATASE (test code = 2204) 97 U/L AST (test code = 2218) 21 U/L ALT (test code = 2219) 18 U/L Emiliano SahuHEMOGLOBIN [id number] 00:00:00* Test Item Value Reference Range Interpretation Comme nts HEMOGLOBIN A1c (test code = 50928) 6.3 % Emiliano SahuCULTURE, [id number] 00:00:00* Test Item Value Reference Range Interpretation Comme nts CULTURE, URINE (test code = 52582) SPECIMEN NUMBER: [id number] Emiliano JeanLTURE, [id number] 00:00:00* Test Item Value Reference Range Interpretation Comme nts CULTURE, URINE (test code = 59789) SPECIMEN NUMBER: [id number] Emiliano JeanLTMARCELINA, [id number] 00:00:00* Test Item Value Reference Range Interpretation Comme nts CULTURE, URINE (test code = 43482) SPECIMEN NUMBER: [id number] CULTURE, [id number] 00:00:00* Test Item Value Reference Range Interpretation Comme nts CULTURE, URINE (test code = 96370) SPECIMEN NUMBER: [id number] Emiliano JeanLTMARCELINA, [id number] 00:00:00* Test Item Value Reference Range Interpretation Comme nts CULTURE, URINE (test code = 11707) SPECIMEN NUMBER: [id number] Emiliano JeanLTMARCELINA, [id number] 00:00:00* Test Item Value Reference Range Interpretation Comme nts CULTURE, URINE (test code = 64758) SPECIMEN NUMBER: [id number] Emiliano SahuCOMP. METABOLIC PANEL ([id number] 18:06:10* Test Item Value Reference Range Interpretation Comme nts NA (test code = 0069931589) 140 mmol/L 135-145 K (test code = 2783720732) 4.6 mmol/L 3.5-5 CL (test code = 0951278641) 101 mmol/L 98-108 CO2 TOTAL (test code = 2377189115) 27 mmol/L 23-31 AGAP (test code = 7209875662) 2-16 BUN (test code = 7263875231) 7 mg/dL 7-23 GLUCOSE (test code = 5127902111) 87 mg/dL 70-110 CREATININE (test code = 7324012697) 0.63 mg/dL 0.5-1.04 TOTAL BILI (test code = 2972186850) 0.6 mg/dL 0.1-1.1 CALCIUM (test code = 8754066258) 10.7 mg/dL 8.6-10.6 H T PROTEIN (test code = 3340431457) 9.0 g/dL 6.3-8.2 H ALBUMIN (test code = 0455050529) 4.5 g/dL 3.5-5 ALK PHOS (test code = 7986631375) 100 U/L 34-122 ALTv (test code = 1742-6) 31 U/L 5-35 AST(SGOT) (test code = 5408563172) 34 U/L 13-40 eGFR (test code = 1838388016) mL/min/1.73m2 YANIRA (test code = YANIRA) Association [...] imaging tests). Lab Interpretation (test code = 27887-1) Abnormal [facility] WITH [id number] 17:55:25* Test Item Value Reference Range Interpretation Comme nts WBC (test code = 6690-2) See_Comment [Automated Specpage] The system which generated this result transmitted reference range: 4.30 - 11.10 10*3/?L. The reference range was not used to interpret this result as normal/abnormal. RBC (test code = 789-8) See_Comment [Automated [employer]] The system which generated this result transmitted reference range: 3.93 - 5.25 10*6/?L. The reference range was not used to interpret this result as normal/abnormal. HGB (test code = 718-7) 12.8 g/dL 11.6-15 HCT (test code = 4544-3) 38.7 % 35.7-45.2 MCV (test code = 787-2) 90.8 fL 80.6-95.5 MCH (test code = 785-6) 30.0 pg 25.9-32.8 MCHC (test code = 786-4) 33.1 g/dL 31.6-35.1 RDW-SD (test code = 65567-2) 43.7 fL 39-49.9 RDW-CV (test code = 788-0) 13.2 % 12-15.5 PLT (test code = 777-3) See_Comment [Automated [employer]] The system which generated this result transmitted reference range: 166 - 358 10*3/?L. The reference range was not used to interpret this result as normal/abnormal. MPV (test code = 77513-1) 10.2 fL 9.5-12.9 NRBC/100 WBC (test code = 2607452665) See_Comment [Automated [employer] ssage] The system which generated this result transmitted reference range: 0.0 - 10.0 /100 WBCs. The reference range was not used to interpret this result as normal/abnormal. NRBC x10^3 (test code = 1125738589) See_Comment [Automated [employer] ssage] The system which generated this result transmitted reference range: 10*3/?L. The reference range was not used to interpret this result as normal/abnormal. GRAN MAT (NEUT) % (test code = 770-8) 53.2 % IMM GRAN % (test code = 5226711835) 0.50 % LYMPH % (test code = 736-9) 36.0 % MONO % (test code = 5905-5) 7.9 % EOS % (test code = 713-8) 1.8 % BASO % (test code = 706-2) 0.6 % GRAN MAT x10^3(ANC) (test code = 7099822102) 3.49 10*3/uL 1.88-7.09 IMM GRAN x10^3 (test code = 2978322309) 0.03 10*3/uL 0-0.06 LYMPH x10^3 (test code = 731-0) 2.36 10*3/uL 1.32-3.29 MONO x10^3 (test code = 742-7) 0.52 10*3/uL 0.33-0.92 EOS x10^3 (test code = 711-2) 0.12 10*3/uL 0.03-0.39 BASO x10^3 (test code = 704-7) 0.04 10*3/uL 0.01-0.07 [facility], THIRD [id number] 06:23:52* Test Item Value Reference Range Interpretation Comme nts TSH, THIRD GENERATION (test code = 2821) 0.436 UIU/ML 0.400-4.100 UNLESS OTHERWISE INDICATED, ALL TESTING PERFORMED [facility] [address] [place] [address] CARTOGRAPHY TECHNICIAN: NASH WEEKS M.D. CLIA NUMBER [id number] [facility] [place]. [id number] COMPREHENSIVE METABOLIC [id number] 04:31:16* Test Item Value Reference Range Interpretation Comme nts GLUCOSE (test code = 2217) 92 MG/DL 70-99 BUN (test code = 2208) 9 MG/DL 6-20 CREATININE (test code = 2214) 0.75 MG/DL 0.60-1.30 eGFR (2020 CKD-EPI) (test code = 22393) 99 ML/MIN/1.73 >60 CALC BUN/CREAT (test code = 2235) 12 RATIO 6-28 SODIUM (test code = 2231) 141 MEQ/L 133-146 POTASSIUM (test code = 2228) 4.2 MEQ/L 3.5-5.4 CHLORIDE (test code = 2215) 101 MEQ/L 95-107 CARBON DIOXIDE (test code = 6) 26 MEQ/L 19-31 CALCIUM (test code = 2209) 12.0 MG/DL 8.5-10.5 H PROTEIN, TOTAL (test code = 2228) 8.7 G/DL 6.1-8.3 H ALBUMIN (test code = 2200) 4.4 G/DL 3.5-5.2 CALC GLOBULIN (test code = 2240) 4.3 G/DL 1.9-3.7 H CALC A/G RATIO (test code = 2233) 1.0 RATIO 1.0-2.6 BILIRUBIN, TOTAL (test code = 2206) 0.3 MG/DL See_Comment [Automated md ssage] The system which generated this result transmitted reference range: <=1.2. The reference range was not used to interpret this result as normal/abnormal. ALKALINE PHOSPHATASE (test code = 2203) 92 U/L 40-118 AST (test code = 2217) 27 U/L 9-40 ALT (test code = 2218) 27 U/L 5-40 CBC W/AUTO DIFF WITH [id number] 03:47:00* Test Item Value Reference Range Interpretation Comme nts WBC (test code = 1001) 6.2 K/UL 3.5-11.0 RBC (test code = 1002) 4.26 M/UL 3.80-5.40 HEMOGLOBIN (test code = 1003) 12.5 G/DL 11.5-15.5 HEMATOCRIT (test code = 1004) 38.2 % 34.0-45.0 MCV (test code = 1005) 89.7 fL 80.0-99.0 MCH (test code = 1006) 29.3 PG 25.0-33.0 MCHC (test code = 1007) 32.7 G/DL 31.0-36.0 RDW (test code = 1038) 13.3 % 11.5-15.0 NEUTROPHILS (test code = 1008) 49.2 % LYMPHOCYTES (test code = 1010) 40.1 % MONOCYTES (test code = 1011) 7.1 % EOSINOPHILS (test code = 1012) 2.9 % BASOPHILS (test code = 1013) 0.5 % IMMATURE GRANULOCYTES (test code = 1036) 0.2 % NUCLEATED RBCS (test code = 1065) 0.0 /100 WBC'S See_Comment [Automated messa ge] The system which generated this result transmitted reference range: 0.0. The reference range was not used to interpret this result as normal/abnormal. PLATELET COUNT (test code = 1015) 236 K/UL 130-400 ABSOLUTE NEUTROPHILS (test code = 1066) 3.07 K/UL 1.50-7.50 ABSOLUTE LYMPHOCYTES (test code = 1067) 2.50 K/UL 1.00-4.00 ABSOLUTE MONOCYTES (test code = 1068) 0.44 K/UL 0.20-1.00 ABSOLUTE EOSINOPHILS (test code = 1040) 0.18 K/UL 0.00-0.50 ABSOLUTE BASOPHILS (test code = 1069) 0.03 K/UL 0.00-0.20 ABS IMMATURE GRANULOCYTES (test code = 1020) 0.01 K/UL 0.00-0.10 ABS NUCLEATED RBCS (test code = 23904) 0.00 K/UL 0.00-0.11 CBC W/AUTO [id number] 00:00:00* Test Item Value Reference Range Interpretation Comme nts WBC (test code = 1001) 6.2 K/UL [...] = 1013) 0.5 % IMMATURE GRANULOCYTES (test code = 1036) 0.2 % NUCLEATED RBCS (test code = 1065) 0.0 /100WBC'S PLATELET COUNT (test code = 1015) 236 K/UL ABSOLUTE NEUTROPHILS (test c ode = 1066) 3.07 K/UL ABSOLUTE LYMPHOCYTES (test c ode = 1067) 2.50 K/UL ABSOLUTE MONOCYTES (test cod e = 1068) 0.44 K/UL ABSOLUTE EOSINOPHILS (test c ode = 1040) 0.18 K/UL ABSOLUTE BASOPHILS (test cod e = 1069) 0.03 K/UL ABS IMMATURE GRANULOCYTES (t est code = 1020) 0.01 K/UL ABS NUCLEATED RBCS (test cod e = 64001) 0.00 K/UL Emiliano SahuCOMPREHENSIVE METABOLIC [id number] 00:00:00* Test Item Value Reference Range Interpretation Comme nts GLUCOSE (test code = 2217) 92 MG/DL BUN (test code = 2208) 9 MG/DL CREATININE (test code = 2214) 0.75 MG/DL eGFR (2020 CKD-EPI) (test co de = 63160) 99 ML/MIN/1.73 CALC BUN/CREAT (test code = 2235) 12 RATIO SODIUM (test code = 2231) 141 MEQ/L POTASSIUM (test code = 2228) 4.2 MEQ/L CHLORIDE (test code = 2215) 101 MEQ/L CARBON DIOXIDE (test code = 2206) 26 MEQ/L CALCIUM (test code = 2209) 12.0 MG/DL PROTEIN, TOTAL (test code = 2229) 8.7 G/DL ALBUMIN (test code = 2201) 4.4 G/DL CALC GLOBULIN (test code = 2240) 4.3 G/DL CALC A/G RATIO (test code = 2234) 1.0 RATIO BILIRUBIN, TOTAL (test code = 2207) 0.3 MG/DL ALKALINE PHOSPHATASE (test code = 2204) 92 U/L AST (test code = 2218) 27 U/L ALT (test code = 2219) 27 U/L Emiliano [id number] 00:00:00* Test Item Value Reference Range Interpretation Comme nts TSH, THIRD GENERATION (test code = 2821) 0.436 UIU/ML Emiliano SahuCBC W/AUTO [id number] 00:00:00* Test Item Value Reference Range Interpretation Comme nts WBC (test code = 1001) 6.2 K/UL [...] = 1013) 0.5 % IMMATURE GRANULOCYTES (test code = 1036) 0.2 % NUCLEATED RBCS (test code = 1065) 0.0 /100WBC'S PLATELET COUNT (test code = 1015) 236 K/UL ABSOLUTE NEUTROPHILS (test c ode = 1066) 3.07 K/UL ABSOLUTE LYMPHOCYTES (test c ode = 1067) 2.50 K/UL ABSOLUTE MONOCYTES (test cod e = 1068) 0.44 K/UL ABSOLUTE EOSINOPHILS (test c ode = 1040) 0.18 K/UL ABSOLUTE BASOPHILS (test cod e = 1069) 0.03 K/UL ABS IMMATURE GRANULOCYTES (t est code = 1020) 0.01 K/UL ABS NUCLEATED RBCS (test cod e = 18435) 0.00 K/UL Emiliano Mercado [facility] W/AUTO [id number] 00:00:00* Test Item Value Reference Range Interpretation Comme nts WBC (test code = 1001) 6.2 K/UL [...] = 1013) 0.5 % IMMATURE GRANULOCYTES (test code = 1036) 0.2 % NUCLEATED RBCS (test code = 1065) 0.0 /100WBC'S PLATELET COUNT (test code = 1015) 236 K/UL ABSOLUTE NEUTROPHILS (test c ode = 1066) 3.07 K/UL ABSOLUTE LYMPHOCYTES (test c ode = 1067) 2.50 K/UL ABSOLUTE MONOCYTES (test cod e = 1068) 0.44 K/UL ABSOLUTE EOSINOPHILS (test c ode = 1040) 0.18 K/UL ABSOLUTE BASOPHILS (test cod e = 1069) 0.03 K/UL ABS IMMATURE GRANULOCYTES (t est code = 1020) 0.01 K/UL ABS NUCLEATED RBCS (test cod e = 64638) 0.00 K/UL COMPREHENSIVE METABOLIC [id number] 00:00:00* Test Item Value Reference Range Interpretation Comme nts GLUCOSE (test code = 2217) 92 MG/DL BUN (test code = 2208) 9 MG/DL CREATININE (test code = 2214) 0.75 MG/DL eGFR (2020 CKD-EPI) (test co de = 07689) 99 ML/MIN/1.73 CALC BUN/CREAT (test code = 2235) 12 RATIO SODIUM (test code = 2231) 141 MEQ/L POTASSIUM (test code = 2228) 4.2 MEQ/L CHLORIDE (test code = 2215) 101 MEQ/L CARBON DIOXIDE (test code = 2206) 26 MEQ/L CALCIUM (test code = 2209) 12.0 MG/DL PROTEIN, TOTAL (test code = 2229) 8.7 G/DL ALBUMIN (test code = 2201) 4.4 G/DL CALC GLOBULIN (test code = 2240) 4.3 G/DL CALC A/G RATIO (test code = 2234) 1.0 RATIO BILIRUBIN, TOTAL (test code = 2207) 0.3 MG/DL ALKALINE PHOSPHATASE (test code = 2204) 92 U/L AST (test code = 2218) 27 U/L ALT (test code = 2219) 27 U/L [id number] 00:00:00* Test Item Value Reference Range Interpretation Comme nts TSH, THIRD GENERATION (test code = 2821) 0.436 UIU/ML CBC W/AUTO [id number] 00:00:00* Test Item Value Reference Range Interpretation Comme nts WBC (test code = 1001) 6.2 K/UL [...] = 1013) 0.5 % IMMATURE GRANULOCYTES (test code = 1036) 0.2 % NUCLEATED RBCS (test code = 1065) 0.0 /100WBC'S PLATELET COUNT (test code = 1015) 236 K/UL ABSOLUTE NEUTROPHILS (test c ode = 1066) 3.07 K/UL ABSOLUTE LYMPHOCYTES (test c ode = 1067) 2.50 K/UL ABSOLUTE MONOCYTES (test cod e = 1068) 0.44 K/UL ABSOLUTE EOSINOPHILS (test c ode = 1040) 0.18 K/UL ABSOLUTE BASOPHILS (test cod e = 1069) 0.03 K/UL ABS IMMATURE GRANULOCYTES (t est code = 1020) 0.01 K/UL ABS NUCLEATED RBCS (test cod e = 76159) 0.00 K/UL COMPREHENSIVE METABOLIC [id number] 00:00:00* Test Item Value Reference Range Interpretation Comme nts GLUCOSE (test code = 2217) 92 MG/DL BUN (test code = 2208) 9 MG/DL CREATININE (test code = 2214) 0.75 MG/DL eGFR (2020 CKD-EPI) (test co de = 45638) 99 ML/MIN/1.73 CALC BUN/CREAT (test code = 2235) 12 RATIO SODIUM (test code = 2231) 141 MEQ/L POTASSIUM (test code = 2228) 4.2 MEQ/L CHLORIDE (test code = 2215) 101 MEQ/L CARBON DIOXIDE (test code = 2206) 26 MEQ/L CALCIUM (test code = 2209) 12.0 MG/DL PROTEIN, TOTAL (test code = 2229) 8.7 G/DL ALBUMIN (test code = 2201) 4.4 G/DL CALC GLOBULIN (test code = 2240) 4.3 G/DL CALC A/G RATIO (test code = 2234) 1.0 RATIO BILIRUBIN, TOTAL (test code = 2207) 0.3 MG/DL ALKALINE PHOSPHATASE (test code = 2204) 92 U/L AST (test code = 2218) 27 U/L ALT (test code = 2219) 27 U/L [id number] 00:00:00* Test Item Value Reference Range Interpretation Comme nts TSH, THIRD GENERATION (test code = 2821) 0.436 UIU/ML COMPREHENSIVE METABOLIC [id number] 00:00:00* Test Item Value Reference Range Interpretation Comme nts GLUCOSE (test code = 2217) 92 MG/DL BUN (test code = 2208) 9 MG/DL CREATININE (test code = 2214) 0.75 MG/DL eGFR (2020 CKD-EPI) (test co de = 22308) 99 ML/MIN/1.73 CALC BUN/CREAT (test code = 2235) 12 RATIO SODIUM (test code = 2231) 141 MEQ/L POTASSIUM (test code = 2228) 4.2 MEQ/L CHLORIDE (test code = 2215) 101 MEQ/L CARBON DIOXIDE (test code = 2206) 26 MEQ/L CALCIUM (test code = 2209) 12.0 MG/DL PROTEIN, TOTAL (test code = 2229) 8.7 G/DL ALBUMIN (test code = 2201) 4.4 G/DL CALC GLOBULIN (test code = 2240) 4.3 G/DL CALC A/G RATIO (test code = 2234) 1.0 RATIO BILIRUBIN, TOTAL (test code = 2207) 0.3 MG/DL ALKALINE PHOSPHATASE (test code = 2204) 92 U/L AST (test code = 2218) 27 U/L ALT (test code = 2219) 27 U/L [facility] W/AUTO [id number] 00:00:00* Test Item Value Reference Range Interpretation Comme nts WBC (test code = 1001) 6.2 K/UL [...] = 1013) 0.5 % IMMATURE GRANULOCYTES (test code = 1036) 0.2 % NUCLEATED RBCS (test code = 1065) 0.0 /100WBC'S PLATELET COUNT (test code = 1015) 236 K/UL ABSOLUTE NEUTROPHILS (test c ode = 1066) 3.07 K/UL ABSOLUTE LYMPHOCYTES (test c ode = 1067) 2.50 K/UL ABSOLUTE MONOCYTES (test cod e = 1068) 0.44 K/UL ABSOLUTE EOSINOPHILS (test c ode = 1040) 0.18 K/UL ABSOLUTE BASOPHILS (test cod e = 1069) 0.03 K/UL ABS IMMATURE GRANULOCYTES (t est code = 1020) 0.01 K/UL ABS NUCLEATED RBCS (test cod e = 27313) 0.00 K/UL COMPREHENSIVE METABOLIC [id number] 00:00:00* Test Item Value Reference Range Interpretation Comme nts GLUCOSE (test code = 2217) 92 MG/DL BUN (test code = 2208) 9 MG/DL CREATININE (test code = 2214) 0.75 MG/DL eGFR (2020 CKD-EPI) (test co de = 87028) 99 ML/MIN/1.73 CALC BUN/CREAT (test code = 2235) 12 RATIO SODIUM (test code = 2231) 141 MEQ/L POTASSIUM (test code = 2228) 4.2 MEQ/L CHLORIDE (test code = 2215) 101 MEQ/L CARBON DIOXIDE (test code = 2206) 26 MEQ/L CALCIUM (test code = 2209) 12.0 MG/DL PROTEIN, TOTAL (test code = 2229) 8.7 G/DL ALBUMIN (test code = 2201) 4.4 G/DL CALC GLOBULIN (test code = 2240) 4.3 G/DL CALC A/G RATIO (test code = 2234) 1.0 RATIO BILIRUBIN, TOTAL (test code = 2207) 0.3 MG/DL ALKALINE PHOSPHATASE (test code = 2204) 92 U/L AST (test code = 2218) 27 U/L ALT (test code = 2219) 27 U/L [id number] 00:00:00* Test Item Value Reference Range Interpretation Comme nts TSH, THIRD GENERATION (test code = 2821) 0.436 UIU/ML CBC W/AUTO [id number] 00:00:00* Test Item Value Reference Range Interpretation Comme nts WBC (test code = 1001) 6.2 K/UL [...] = 1013) 0.5 % IMMATURE GRANULOCYTES (test code = 1036) 0.2 % NUCLEATED RBCS (test code = 1065) 0.0 /100WBC'S PLATELET COUNT (test code = 1015) 236 K/UL ABSOLUTE NEUTROPHILS (test c ode = 1066) 3.07 K/UL ABSOLUTE LYMPHOCYTES (test c ode = 1067) 2.50 K/UL ABSOLUTE MONOCYTES (test cod e = 1068) 0.44 K/UL ABSOLUTE EOSINOPHILS (test c ode = 1040) 0.18 K/UL ABSOLUTE BASOPHILS (test cod e = 1069) 0.03 K/UL ABS IMMATURE GRANULOCYTES (t est code = 1020) 0.01 K/UL ABS NUCLEATED RBCS (test cod e = 77482) 0.00 K/UL COMPREHENSIVE METABOLIC [id number] 00:00:00* Test Item Value Reference Range Interpretation Comme nts GLUCOSE (test code = 2217) 92 MG/DL BUN (test code = 2208) 9 MG/DL CREATININE (test code = 2214) 0.75 MG/DL eGFR (2020 CKD-EPI) (test co de = 49039) 99 ML/MIN/1.73 CALC BUN/CREAT (test code = 2235) 12 RATIO SODIUM (test code = 2231) 141 MEQ/L POTASSIUM (test code = 2228) 4.2 MEQ/L CHLORIDE (test code = 2215) 101 MEQ/L CARBON DIOXIDE (test code = 2206) 26 MEQ/L CALCIUM (test code = 2209) 12.0 MG/DL PROTEIN, TOTAL (test code = 2229) 8.7 G/DL ALBUMIN (test code = 2201) 4.4 G/DL CALC GLOBULIN (test code = 2240) 4.3 G/DL CALC A/G RATIO (test code = 2234) 1.0 RATIO BILIRUBIN, TOTAL (test code = 2207) 0.3 MG/DL ALKALINE PHOSPHATASE (test code = 2204) 92 U/L AST (test code = 2218) 27 U/L ALT (test code = 2219) 27 U/L [id number] 00:00:00* Test Item Value Reference Range Interpretation Comme nts TSH, THIRD GENERATION (test code = 2821) 0.436 UIU/ML [id number] 00:00:00* Test Item Value Reference Range Interpretation Comme nts TSH, THIRD GENERATION (test code = 2821) 0.436 UIU/ML Emiliano Rogelio Luis AlbertoCBC W/AUTO [id number] 00:00:00* Test Item Value Reference Range Interpretation Comme nts WBC (test code = 1001) 6.2 K/UL [...] = 1013) 0.5 % IMMATURE GRANULOCYTES (test code = 1036) 0.2 % NUCLEATED RBCS (test code = 1065) 0.0 /100WBC'S PLATELET COUNT (test code = 1015) 236 K/UL ABSOLUTE NEUTROPHILS (test c ode = 1066) 3.07 K/UL ABSOLUTE LYMPHOCYTES (test c ode = 1067) 2.50 K/UL ABSOLUTE MONOCYTES (test cod e = 1068) 0.44 K/UL ABSOLUTE EOSINOPHILS (test c ode = 1040) 0.18 K/UL ABSOLUTE BASOPHILS (test cod e = 1069) 0.03 K/UL ABS IMMATURE GRANULOCYTES (t est code = 1020) 0.01 K/UL ABS NUCLEATED RBCS (test cod e = 88588) 0.00 K/UL Emiliano SahuCOMPREHENSIVE METABOLIC [id number] 00:00:00* Test Item Value Reference Range Interpretation Comme nts GLUCOSE (test code = 2217) 92 MG/DL BUN (test code = 2208) 9 MG/DL CREATININE (test code = 2214) 0.75 MG/DL eGFR (2020 CKD-EPI) (test co de = 18221) 99 ML/MIN/1.73 CALC BUN/CREAT (test code = 2235) 12 RATIO SODIUM (test code = 2231) 141 MEQ/L POTASSIUM (test code = 2228) 4.2 MEQ/L CHLORIDE (test code = 2215) 101 MEQ/L CARBON DIOXIDE (test code = 2206) 26 MEQ/L CALCIUM (test code = 2209) 12.0 MG/DL PROTEIN, TOTAL (test code = 2229) 8.7 G/DL ALBUMIN (test code = 2201) 4.4 G/DL CALC GLOBULIN (test code = 2240) 4.3 G/DL CALC A/G RATIO (test code = 2234) 1.0 RATIO BILIRUBIN, TOTAL (test code = 2207) 0.3 MG/DL ALKALINE PHOSPHATASE (test code = 2204) 92 U/L AST (test code = 2218) 27 U/L ALT (test code = 2219) 27 U/L Emiliano [id number] 00:00:00* Test Item Value Reference Range Interpretation Comme nts TSH, THIRD GENERATION (test code = 2821) 0.436 UIU/ML Emiliano SahuCBC W/AUTO [id number] 00:00:00* Test Item Value Reference Range Interpretation Comme nts WBC (test code = 1001) 6.2 K/UL [...] = 1013) 0.5 % IMMATURE GRANULOCYTES (test code = 1036) 0.2 % NUCLEATED RBCS (test code = 1065) 0.0 /100WBC'S PLATELET COUNT (test code = 1015) 236 K/UL ABSOLUTE NEUTROPHILS (test c ode = 1066) 3.07 K/UL ABSOLUTE LYMPHOCYTES (test c ode = 1067) 2.50 K/UL ABSOLUTE MONOCYTES (test cod e = 1068) 0.44 K/UL ABSOLUTE EOSINOPHILS (test c ode = 1040) 0.18 K/UL ABSOLUTE BASOPHILS (test cod e = 1069) 0.03 K/UL ABS IMMATURE GRANULOCYTES (t est code = 1020) 0.01 K/UL ABS NUCLEATED RBCS (test cod e = 59716) 0.00 K/UL Emiliano SahuCOMPREHENSIVE METABOLIC [id number] 00:00:00* Test Item Value Reference Range Interpretation Comme nts GLUCOSE (test code = 2217) 92 MG/DL BUN (test code = 2208) 9 MG/DL CREATININE (test code = 2214) 0.75 MG/DL eGFR (2020 CKD-EPI) (test co de = 13753) 99 ML/MIN/1.73 CALC BUN/CREAT (test code = 2235) 12 RATIO SODIUM (test code = 2231) 141 MEQ/L POTASSIUM (test code = 2228) 4.2 MEQ/L CHLORIDE (test code = 2215) 101 MEQ/L CARBON DIOXIDE (test code = 2206) 26 MEQ/L CALCIUM (test code = 2209) 12.0 MG/DL PROTEIN, TOTAL (test code = 2229) 8.7 G/DL ALBUMIN (test code = 2201) 4.4 G/DL CALC GLOBULIN (test code = 2240) 4.3 G/DL CALC A/G RATIO (test code = 2234) 1.0 RATIO BILIRUBIN, TOTAL (test code = 2207) 0.3 MG/DL ALKALINE PHOSPHATASE (test code = 2204) 92 U/L AST (test code = 2218) 27 U/L ALT (test code = 2219) 27 U/L Emiliano [id number] 00:00:00* Test Item Value Reference Range Interpretation Comme nts TSH, THIRD GENERATION (test code = 2821) 0.436 UIU/ML Emiliano SahuCBC W/AUTO [id number] 00:00:00* Test Item Value Reference Range Interpretation Comme nts WBC (test code = 1001) 6.2 K/UL [...] = 1013) 0.5 % IMMATURE GRANULOCYTES (test code = 1036) 0.2 % NUCLEATED RBCS (test code = 1065) 0.0 /100WBC'S PLATELET COUNT (test code = 1015) 236 K/UL ABSOLUTE NEUTROPHILS (test c ode = 1066) 3.07 K/UL ABSOLUTE LYMPHOCYTES (test c ode = 1067) 2.50 K/UL ABSOLUTE MONOCYTES (test cod e = 1068) 0.44 K/UL ABSOLUTE EOSINOPHILS (test c ode = 1040) 0.18 K/UL ABSOLUTE BASOPHILS (test cod e = 1069) 0.03 K/UL ABS IMMATURE GRANULOCYTES (t est code = 1020) 0.01 K/UL ABS NUCLEATED RBCS (test cod e = 01853) 0.00 K/UL Emiliano SahuCOMPREHENSIVE METABOLIC [id number] 00:00:00* Test Item Value Reference Range Interpretation Comme nts GLUCOSE (test code = 2217) 92 MG/DL BUN (test code = 2208) 9 MG/DL CREATININE (test code = 2214) 0.75 MG/DL eGFR (2020 CKD-EPI) (test co de = 69258) 99 ML/MIN/1.73 CALC BUN/CREAT (test code = 2235) 12 RATIO SODIUM (test code = 2231) 141 MEQ/L POTASSIUM (test code = 2228) 4.2 MEQ/L CHLORIDE (test code = 2215) 101 MEQ/L CARBON DIOXIDE (test code = 2206) 26 MEQ/L CALCIUM (test code = 2209) 12.0 MG/DL PROTEIN, TOTAL (test code = 2229) 8.7 G/DL ALBUMIN (test code = 2201) 4.4 G/DL CALC GLOBULIN (test code = 2240) 4.3 G/DL CALC A/G RATIO (test code = 2234) 1.0 RATIO BILIRUBIN, TOTAL (test code = 2207) 0.3 MG/DL ALKALINE PHOSPHATASE (test code = 2204) 92 U/L AST (test code = 2218) 27 U/L ALT (test code = 2219) 27 U/L Emiliano [id number] 00:00:00* Test Item Value Reference Range Interpretation Comme nts TSH, THIRD GENERATION (test code = 2821) 0.436 UIU/ML Emiliano Jones [id number] 09:02:35SPECIMEN NUMBER: [id number] CULTURE, URINE SPECIMEN NUMBER: [id number] SPECIMEN COMMENT: URINE SOURCE: URINE REPORT STATUS: FINAL FINAL REPORT: 10/02/2021 10-50,000 CFU/ML UROGENITAL [place] PRESENT NO COMMON PATHOGENS UNLESS OTHERWISE INDICATED, ALL TESTING PERFORMED [facility] [address] [place] [address] CARTOGRAPHY TECHNICIAN: NASH WEEKS M.D. CLIA NUMBER [id number] [place]. [id number], [id number] 00:00:00* Test Item Value Reference Range Interpretation Comme nts CULTURE, URINE (test code = 57540) SPECIMEN NUMBER: [id number] Emiliano Jones [id number] 00:00:00* Test Item Value Reference Range Interpretation Comme nts CULTURE, URINE (test code = 09518) SPECIMEN NUMBER: [id number] Emiliano JeanLTMARCELINA, [id number] 00:00:00* Test Item Value Reference Range Interpretation Comme nts CULTURE, URINE (test code = 31820) SPECIMEN NUMBER: [id number] CULTURE, [id number] 00:00:00* Test Item Value Reference Range Interpretation Comme nts CULTURE, URINE (test code = 46545) SPECIMEN NUMBER: [id number] CULTURE, [id number] 00:00:00* Test Item Value Reference Range Interpretation Comme nts CULTURE, URINE (test code = 12384) SPECIMEN NUMBER: [id number] CULTURE, [id number] 00:00:00* Test Item Value Reference Range Interpretation Comme nts CULTURE, URINE (test code = 61265) SPECIMEN NUMBER: [id number] CULTURE, [id number] 00:00:00* Test Item Value Reference Range Interpretation Comme nts CULTURE, URINE (test code = 59540) SPECIMEN NUMBER: [id number] Emiliano SahuCULTURE, [id number] 00:00:00* Test Item Value Reference Range Interpretation Comme nts CULTURE, URINE (test code = 21409) SPECIMEN NUMBER: [id number] Emiliano JeanLTURE, [id number] 00:00:00* Test Item Value Reference Range Interpretation Comme nts CULTURE, URINE (test code = 78071) SPECIMEN NUMBER: [id number] Emiliano SahuCOMP. METABOLIC PANEL (80216)2021-09-24 17:17:37* Test Item Value Reference Range Interpretation Comme nts NA (test code = 4325653118) 141 mmol/L 135-145 K (test code = 1432639518) 4.2 mmol/L 3.5-5.0 CL (test code = 2371391319) 100 mmol/L 98-108 CO2 TOTAL (test code = 3937149851) 28 mmol/L 23-31 AGAP (test code = 1411607898) 2-16 BUN (test code = 4626542279) 9 mg/dL 7-23 GLUCOSE (test code = 1688302161) 106 mg/dL 70-110 CREATININE (test code = 8620683953) 0.72 mg/dL 0.50-1.04 TOTAL BILI (test code = 0631484520) 0.6 mg/dL 0.1-1.1 CALCIUM (test code = 7007811102) 11.7 mg/dL 8.6-10.6 H T PROTEIN (test code = 6212261768) 9.3 g/dL 6.3-8.2 H ALBUMIN (test code = 3772930527) 4.5 g/dL 3.5-5.0 ALK PHOS (test code = 3481906852) 100 U/L 34-122 ALTv (test code = 1742-6) 26 U/L 5-35 AST(SGOT) (test code = 5685381430) 29 U/L 13-40 eGFR (test code = 0379115706) mL/min/1.73m2 YANIRA (test code = YANIRA) Association [...] imaging tests). Lab Interpretation (test code = 50441-2) [facility] 17:17:37* Test Item Value Reference Range Interpretation Comme [facility] LIPASE (test code = 4311129992) 139 U/L 0-220 Lab Interpretation (test cod e = 47260-2) Normal [facility] THRM[facility]AS [id number] 17:17:17* Test Item Value Reference Range Interpretation Comme [facility] APTT Patient (test code = 3173-2) See_Comment [Automated message] The system which generated this result transmitted reference range: 23 - 38 Seconds. The reference range was not used to interpret this result as normal/abnormal. YANIRA (test code = YANIRA) The [facility] patient population mean normal value for aPTT is 30 seconds. Lab Interpretation (test code = 20040-0) Normal [facility] DallasPROTHROMBIN TIME / [id number] 17:15:16* Test Item Value Reference Range Interpretation Comme [facility] PROTIME PATIENT (test code = 5964-2) See_Comment [Automated [employer] [employer]] The system which generated this result transmitted reference range: 12.0 - 14.7 Seconds. The reference range was not used to interpret this result as normal/abnormal. INR (test code = 6301-6) Normal INR <1.1; Warfarin Therapeutic range 2.0 to 3.0 or 2.5 to 3.5, depending upon the indications. Lab Interpretation (test code = 34769-2) Normal [facility] WITH [id number] 17:04:54* Test Item Value Reference Range Interpretation Comme [facility] WBC (test code = 6690-2) See_Comment [Automated [employer]] The system which generated this result transmitted reference range: 4.30 - 11.10 10*3/?L. The reference range was not used to interpret this result as normal/abnormal. RBC (test code = 789-8) See_Comment [Automated [employer]] The system which generated this result transmitted reference range: 3.93 - 5.25 10*6/?L. The reference range was not used to interpret this result as normal/abnormal. HGB (test code = 718-7) 13.4 g/dL 11.6-15.0 HCT (test code = 4544-3) 39.9 % 35.7-45.2 MCV (test code = 787-2) 89.1 fL 80.6-95.5 MCH (test code = 785-6) 29.9 pg 25.9-32.8 MCHC (test code = 786-4) 33.6 g/dL 31.6-35.1 RDW-SD (test code = 31553-5) 41.5 fL 39.0-49.9 RDW-CV (test code = 788-0) 12.8 % 12.0-15.5 PLT (test code = 777-3) See_Comment [Automated messa ge] The system which generated this result transmitted reference range: 166 - 358 10*3/?L. The reference range was not used to interpret this result as normal/abnormal. MPV (test code = 61438-3) 10.0 fL 9.5-12.9 NRBC/100 WBC (test code = 8029515936) See_Comment [Automated me ssage] The system which generated this result transmitted reference range: 0.0 - 10.0 /100 WBCs. The reference range was not used to interpret this result as normal/abnormal. NRBC x10^3 (test code = 7872360910) <0.01 See_Comment [Automated me ssage] The system which generated this result transmitted reference range: 10*3/?L. The reference range was not used to interpret this result as normal/abnormal. GRAN MAT (NEUT) % (test code = 770-8) 52.2 % IMM GRAN % (test code = 8712615663) 0.30 % LYMPH % (test code = 736-9) 37.7 % MONO % (test code = 5905-5) 7.3 % EOS % (test code = 713-8) 2.2 % BASO % (test code = 706-2) 0.3 % GRAN MAT x10^3(ANC) (test code = 9607757337) 3.14 10*3/uL 1.88-7.09 IMM GRAN x10^3 (test code = 5894345347) <0.03 0.00-0.06 LYMPH x10^3 (test code = 731-0) 2.27 10*3/uL 1.32-3.29 MONO x10^3 (test code = 742-7) 0.44 10*3/uL 0.33-0.92 EOS x10^3 (test code = 711-2) 0.13 10*3/uL 0.03-0.39 BASO x10^3 (test code = 704-7) <0.03 0.01-0.07 [facility]HEPAT[facility] PANEL, [id number] 03:32:34* Test Item Value Reference Range Interpretation Comme nts HEPATITIS A IgM (test code = 18400) NON-REACTIVE NON-REACTIVE HEPATITIS B CORE IgM (test code = 4644) NON-REACTIVE NON-REACTIVE HEPATITIS B SURF AG (test code = 2739) NON-REACTIVE NON-REACTIVE HEPATITIS C ANTIBODY (test code = 4675) NON-REACTIVE NON-REACTIVE INTERPRETATION HEPATITIS A: (test code = 2552) (NOTE) Hepatitis A serology shows no evidence of acute hepatitis A. INTERPRETATION HEPATITIS B: (test code = 19733) (NOTE) Hepatitis B serology shows no evidence of acute hepatitis B andno indication of exposure to hepatitis B virus in the previous oly eight months. INTERPRETATION HEPATITIS C: (test code = 48997) (NOTE) Hepatitis C serology shows no evidence of exposure to hepatitisC virus at this time. It can take up to 12 months after exposure tothe hepatitis C virus for antibodies to become detectable in the blood in certain patients. LIPID [id number] 01:28:17* Test Item Value Reference Range Interpretation Comme nts CHOLESTEROL (test code = 2210) 213 MG/DL <200 H TRIGLYCERIDES (test code = 2232) 200 MG/DL <150 H HDL CHOLESTEROL (test code = 2220) 43 MG/DL >39 CALC LDL CHOL (test code = 2237) 136 MG/DL <100 H NOTE: CALCULATED LDL IS BASED ON LAURA-FERREIRA METHOD WHICHINCLUDES ADJUSTABLE TRIGLYCERIDE:VLDL CHOLESTEROL RATIO.THIS FACTOR VARIES BY MEASURED TRIGLYCERIDE AND NON-HDLCHOLESTEROL CONCENTRATIONS WITH INCREASED CALCULATED LDL SEENIN HIGHER TRIGLYCERIDE OR LOWER NON-HDL SPECIMENS. FOR MOREINFORMATION, SEE CLIENT ANNOUNCEMENT AT [email or web address] RISK RATIO LDL/HDL (test code = 2238) 3.16 RATIO <3.22 COMPREHENSIVE METABOLIC [id number] 01:28:17* Test Item Value Reference Range Interpretation Comme nts GLUCOSE (test code = 2216) 68 MG/DL 70-99 L BUN (test code = 2207) 7 MG/DL 6-20 CREATININE (test code = 2213) 0.70 MG/DL 0.60-1.30 eGFR (2020 CKD-EPI) (test code = ) 108 ML/MIN/1.73 >60 CALC BUN/CREAT (test code = 2234) 10 RATIO 6-28 SODIUM (test code = 2230) 138 MEQ/L 133-146 POTASSIUM (test code = 2227) 4.0 MEQ/L 3.5-5.4 CHLORIDE (test code = 2214) 98 MEQ/L 95-107 CARBON DIOXIDE (test code = 2205) 24 MEQ/L 19-31 CALCIUM (test code = 2208) 10.8 MG/DL 8.5-10.5 H PROTEIN, TOTAL (test code = 2228) 8.5 G/DL 6.1-8.3 H ALBUMIN (test code = 2200) 4.1 G/DL 3.5-5.2 CALC GLOBULIN (test code = 2239) 4.4 G/DL 1.9-3.7 H CALC A/G RATIO (test code = 2233) 0.9 RATIO 1.0-2.6 L BILIRUBIN, TOTAL (test code = 2206) 0.2 MG/DL See_Comment [Automated me ssage] The system which generated this result transmitted reference range: <=1.2. The reference range was not used to interpret this result as normal/abnormal. ALKALINE PHOSPHATASE (test code = 2203) 117 U/L 40-118 AST (test code = 2217) 16 U/L 9-40 ALT (test code = 9) 16 U/L 5-40 TSH, THIRD [id number] 00:54:02* Test Item Value Reference Range Interpretation Comme nts TSH, THIRD GENERATION (test code = 2821) 0.553 UIU/ML 0.400-4.100 UNLESS OTHERWISE INDICATED, ALL TESTING PERFORMED [email or web address] [employer] [address] [place] [address] CARTOGRAPHY TECHNICIAN: NASH WEEKS M.D. [place] NUMBER [id number] [facility] [place]. [id number] ACUTE HEPATITIS [id number] 00:00:00* Test Item Value Reference Range Interpretation Comme nts HEPATITIS A IgM (test code = 82056) NON-REACTIVE HEPATITIS B CORE IgM (test c ode = 4640) NON-REACTIVE HEPATITIS B SURF AG (test co de = 2739) NON-REACTIVE HEPATITIS C ANTIBODY (test c ode = 4611) NON-REACTIVE INTERPRETATION HEPATITIS A: (test code = 2552) (NOTE) INTERPRETATION HEPATITIS B: (test code = 19292) (NOTE) INTERPRETATION HEPATITIS C: (test code = 83623) (NOTE) Emiliano [id number] 00:00:00* Test Item Value Reference Range Interpretation Comme nts TSH, THIRD GENERATION (test code = 2821) 0.553 UIU/ML Emiliano SahuLIPID [id number] 00:00:00* Test Item Value Reference Range Interpretation Comme nts CHOLESTEROL (test code = 2210) 213 MG/DL TRIGLYCERIDES (test code = 2232) 200 MG/DL HDL CHOLESTEROL (test code = 2220) 43 MG/DL CALC LDL CHOL (test code = 2237) 136 MG/DL RISK RATIO LDL/HDL (test cod e = 2238) 3.16 RATIO Emiliano SahuCOMPREHENSIVE METABOLIC [id number] 00:00:00* Test Item Value Reference Range Interpretation Comme nts GLUCOSE (test code = 2217) 68 MG/DL BUN (test code = 2208) 7 MG/DL CREATININE (test code = 2214) 0.70 MG/DL eGFR (2020 CKD-EPI) (test code = 80260) 108 ML/MIN/1.73 CALC BUN/CREAT (test code = 2235) 10 RATIO SODIUM (test code = 2231) 138 MEQ/L POTASSIUM (test code = 2228) 4.0 MEQ/L CHLORIDE (test code = 2215) 98 MEQ/L CARBON DIOXIDE (test code = 2206) 24 MEQ/L CALCIUM (test code = 2209) 10.8 MG/DL PROTEIN, TOTAL (test code = 2229) 8.5 G/DL ALBUMIN (test code = 2201) 4.1 G/DL CALC GLOBULIN (test code = 2240) 4.4 G/DL CALC A/G RATIO (test code = 2234) 0.9 RATIO BILIRUBIN, TOTAL (test code = 2207) 0.2 MG/DL ALKALINE PHOSPHATASE (test code = 2204) 117 U/L AST (test code = 2218) 16 U/L ALT (test code = 2219) 16 U/L Emiliano SahuACUTE HEPATITIS [id number] 00:00:00* Test Item Value Reference Range Interpretation Comme nts HEPATITIS A IgM (test code = 86515) NON-REACTIVE HEPATITIS B CORE IgM (test c ode = 4644) NON-REACTIVE HEPATITIS B SURF AG (test co de = 2739) NON-REACTIVE HEPATITIS C ANTIBODY (test c ode = 4693) NON-REACTIVE INTERPRETATION HEPATITIS A: (test code = 2552) (NOTE) INTERPRETATION HEPATITIS B: (test code = 64972) (NOTE) INTERPRETATION HEPATITIS C: (test code = 74240) (NOTE) Emiliano [id number] 00:00:00* Test Item Value Reference Range Interpretation Comme gregg TSH, THIRD GENERATION (test code = 2821) 0.553 UIU/ML Emiliano SahuLIPID [id number] 00:00:00* Test Item Value Reference Range Interpretation Comme nts CHOLESTEROL (test code = 2210) 213 MG/DL TRIGLYCERIDES (test code = 2232) 200 MG/DL HDL CHOLESTEROL (test code = 2220) 43 MG/DL CALC LDL CHOL (test code = 2237) 136 MG/DL RISK RATIO LDL/HDL (test cod e = 2238) 3.16 RATIO COMPREHENSIVE METABOLIC [id number] 00:00:00* Test Item Value Reference Range Interpretation Comme nts GLUCOSE (test code = 2217) 68 MG/DL BUN (test code = 2208) 7 MG/DL CREATININE (test code = 2214) 0.70 MG/DL eGFR (2020 CKD-EPI) (test code = 07943) 108 ML/MIN/1.73 CALC BUN/CREAT (test code = 2235) 10 RATIO SODIUM (test code = 2231) 138 MEQ/L POTASSIUM (test code = 2228) 4.0 MEQ/L CHLORIDE (test code = 2215) 98 MEQ/L CARBON DIOXIDE (test code = 2206) 24 MEQ/L CALCIUM (test code = 2209) 10.8 MG/DL PROTEIN, TOTAL (test code = 2229) 8.5 G/DL ALBUMIN (test code = 2201) 4.1 G/DL CALC GLOBULIN (test code = 2240) 4.4 G/DL CALC A/G RATIO (test code = 2234) 0.9 RATIO BILIRUBIN, TOTAL (test code = 2207) 0.2 MG/DL ALKALINE PHOSPHATASE (test code = 2204) 117 U/L AST (test code = 2218) 16 U/L ALT (test code = 2219) 16 U/L ACUTE HEPATITIS [id number] 00:00:00* Test Item Value Reference Range Interpretation Comme nts HEPATITIS A IgM (test code = 81626) NON-REACTIVE HEPATITIS B CORE IgM (test c ode = 4644) NON-REACTIVE HEPATITIS B SURF AG (test co de = 2739) NON-REACTIVE HEPATITIS C ANTIBODY (test c ode = 4675) NON-REACTIVE INTERPRETATION HEPATITIS A: (test code = 2552) (NOTE) INTERPRETATION HEPATITIS B: (test code = 58764) (NOTE) INTERPRETATION HEPATITIS C: (test code = 43827) (NOTE) [id number] 00:00:00* Test Item Value Reference Range Interpretation Comme nts TSH, THIRD GENERATION (test code = 2821) 0.553 UIU/ML LIPID [id number] 00:00:00* Test Item Value Reference Range Interpretation Comme nts CHOLESTEROL (test code = 2210) 213 MG/DL TRIGLYCERIDES (test code = 2232) 200 MG/DL HDL CHOLESTEROL (test code = 2220) 43 MG/DL CALC LDL CHOL (test code = 2237) 136 MG/DL RISK RATIO LDL/HDL (test cod e = 2238) 3.16 RATIO COMPREHENSIVE METABOLIC [id number] 00:00:00* Test Item Value Reference Range Interpretation Comme nts GLUCOSE (test code = 2217) 68 MG/DL BUN (test code = 2208) 7 MG/DL CREATININE (test code = 2214) 0.70 MG/DL eGFR (2020 CKD-EPI) (test code = 60383) 108 ML/MIN/1.73 CALC BUN/CREAT (test code = 2235) 10 RATIO SODIUM (test code = 2231) 138 MEQ/L POTASSIUM (test code = 2228) 4.0 MEQ/L CHLORIDE (test code = 2215) 98 MEQ/L CARBON DIOXIDE (test code = 2206) 24 MEQ/L CALCIUM (test code = 2209) 10.8 MG/DL PROTEIN, TOTAL (test code = 2229) 8.5 G/DL ALBUMIN (test code = 2201) 4.1 G/DL CALC GLOBULIN (test code = 2240) 4.4 G/DL CALC A/G RATIO (test code = 2234) 0.9 RATIO BILIRUBIN, TOTAL (test code = 2207) 0.2 MG/DL ALKALINE PHOSPHATASE (test code = 2204) 117 U/L AST (test code = 2218) 16 U/L ALT (test code = 2219) 16 U/L ACUTE HEPATITIS [id number] 00:00:00* Test Item Value Reference Range Interpretation Comme nts HEPATITIS A IgM (test code = 60927) NON-REACTIVE HEPATITIS B CORE IgM (test c ode = 4644) NON-REACTIVE HEPATITIS B SURF AG (test co de = 2739) NON-REACTIVE HEPATITIS C ANTIBODY (test c ode = 4675) NON-REACTIVE INTERPRETATION HEPATITIS A: (test code = 2552) (NOTE) INTERPRETATION HEPATITIS B: (test code = 64963) (NOTE) INTERPRETATION HEPATITIS C: (test code = 33307) (NOTE) [id number] 00:00:00* Test Item Value Reference Range Interpretation Comme nts TSH, THIRD GENERATION (test code = 2821) 0.553 UIU/ML LIPID [id number] 00:00:00* Test Item Value Reference Range Interpretation Comme nts CHOLESTEROL (test code = 2210) 213 MG/DL TRIGLYCERIDES (test code = 2232) 200 MG/DL HDL CHOLESTEROL (test code = 2220) 43 MG/DL CALC LDL CHOL (test code = 2237) 136 MG/DL RISK RATIO LDL/HDL (test cod e = 2238) 3.16 RATIO LIPID [id number] 00:00:00* Test Item Value Reference Range Interpretation Comme nts CHOLESTEROL (test code = 2210) 213 MG/DL TRIGLYCERIDES (test code = 2232) 200 MG/DL HDL CHOLESTEROL (test code = 2220) 43 MG/DL CALC LDL CHOL (test code = 2237) 136 MG/DL RISK RATIO LDL/HDL (test cod e = 2238) 3.16 RATIO COMPREHENSIVE METABOLIC [id number] 00:00:00* Test Item Value Reference Range Interpretation Comme nts GLUCOSE (test code = 2217) 68 MG/DL BUN (test code = 2208) 7 MG/DL CREATININE (test code = 2214) 0.70 MG/DL eGFR (2020 CKD-EPI) (test code = 59678) 108 ML/MIN/1.73 CALC BUN/CREAT (test code = 2235) 10 RATIO SODIUM (test code = 2231) 138 MEQ/L POTASSIUM (test code = 2228) 4.0 MEQ/L CHLORIDE (test code = 2215) 98 MEQ/L CARBON DIOXIDE (test code = 2206) 24 MEQ/L CALCIUM (test code = 2209) 10.8 MG/DL PROTEIN, TOTAL (test code = 2229) 8.5 G/DL ALBUMIN (test code = 2201) 4.1 G/DL CALC GLOBULIN (test code = 2240) 4.4 G/DL CALC A/G RATIO (test code = 2234) 0.9 RATIO BILIRUBIN, TOTAL (test code = 2207) 0.2 MG/DL ALKALINE PHOSPHATASE (test code = 2204) 117 U/L AST (test code = 2218) 16 U/L ALT (test code = 2219) 16 U/L COMPREHENSIVE METABOLIC [id number] 00:00:00* Test Item Value Reference Range Interpretation Comme nts GLUCOSE (test code = 2217) 68 MG/DL BUN (test code = 2208) 7 MG/DL CREATININE (test code = 2214) 0.70 MG/DL eGFR (2020 CKD-EPI) (test code = 38243) 108 ML/MIN/1.73 CALC BUN/CREAT (test code = 2235) 10 RATIO SODIUM (test code = 2231) 138 MEQ/L POTASSIUM (test code = 2228) 4.0 MEQ/L CHLORIDE (test code = 2215) 98 MEQ/L CARBON DIOXIDE (test code = 2206) 24 MEQ/L CALCIUM (test code = 2209) 10.8 MG/DL PROTEIN, TOTAL (test code = 2229) 8.5 G/DL ALBUMIN (test code = 2201) 4.1 G/DL CALC GLOBULIN (test code = 2240) 4.4 G/DL CALC A/G RATIO (test code = 2234) 0.9 RATIO BILIRUBIN, TOTAL (test code = 2207) 0.2 MG/DL ALKALINE PHOSPHATASE (test code = 2204) 117 U/L AST (test code = 2218) 16 U/L ALT (test code = 2219) 16 U/L ACUTE HEPATITIS [id number] 00:00:00* Test Item Value Reference Range Interpretation Comme nts HEPATITIS A IgM (test code = 59044) NON-REACTIVE HEPATITIS B CORE IgM (test c ode = 4644) NON-REACTIVE HEPATITIS B SURF AG (test co de = 2739) NON-REACTIVE HEPATITIS C ANTIBODY (test c ode = 4675) NON-REACTIVE INTERPRETATION HEPATITIS A: (test code = 2552) (NOTE) INTERPRETATION HEPATITIS B: (test code = 09476) (NOTE) INTERPRETATION HEPATITIS C: (test code = 58629) (NOTE) [id number] 00:00:00* Test Item Value Reference Range Interpretation Comme nts TSH, THIRD GENERATION (test code = 2821) 0.553 UIU/ML LIPID [id number] 00:00:00* Test Item Value Reference Range Interpretation Comme nts CHOLESTEROL (test code = 2210) 213 MG/DL TRIGLYCERIDES (test code = 2232) 200 MG/DL HDL CHOLESTEROL (test code = 2220) 43 MG/DL CALC LDL CHOL (test code = 2237) 136 MG/DL RISK RATIO LDL/HDL (test cod e = 2238) 3.16 RATIO Emiliano Mercado AustinACUTE HEPATITIS [id number] 00:00:00* Test Item Value Reference Range Interpretation Comme nts HEPATITIS A IgM (test code = 31963) NON-REACTIVE HEPATITIS B CORE IgM (test c ode = 4644) NON-REACTIVE HEPATITIS B SURF AG (test co de = 2739) NON-REACTIVE HEPATITIS C ANTIBODY (test c ode = 4675) NON-REACTIVE INTERPRETATION HEPATITIS A: (test code = 2552) (NOTE) INTERPRETATION HEPATITIS B: (test code = 73436) (NOTE) INTERPRETATION HEPATITIS C: (test code = 24156) (NOTE) [id number] 00:00:00* Test Item Value Reference Range Interpretation Comme nts TSH, THIRD GENERATION (test code = 2821) 0.553 UIU/ML LIPID [id number] 00:00:00* Test Item Value Reference Range Interpretation Comme nts CHOLESTEROL (test code = 2210) 213 MG/DL TRIGLYCERIDES (test code = 2232) 200 MG/DL HDL CHOLESTEROL (test code = 2220) 43 MG/DL CALC LDL CHOL (test code = 2237) 136 MG/DL RISK RATIO LDL/HDL (test cod e = 2238) 3.16 RATIO COMPREHENSIVE METABOLIC [id number] 00:00:00* Test Item Value Reference Range Interpretation Comme nts GLUCOSE (test code = 2217) 68 MG/DL BUN (test code = 2208) 7 MG/DL CREATININE (test code = 2214) 0.70 MG/DL eGFR (2020 CKD-EPI) (test code = 37931) 108 ML/MIN/1.73 CALC BUN/CREAT (test code = 2235) 10 RATIO SODIUM (test code = 2231) 138 MEQ/L POTASSIUM (test code = 2228) 4.0 MEQ/L CHLORIDE (test code = 2215) 98 MEQ/L CARBON DIOXIDE (test code = 2206) 24 MEQ/L CALCIUM (test code = 2209) 10.8 MG/DL PROTEIN, TOTAL (test code = 2229) 8.5 G/DL ALBUMIN (test code = 2201) 4.1 G/DL CALC GLOBULIN (test code = 2240) 4.4 G/DL CALC A/G RATIO (test code = 2234) 0.9 RATIO BILIRUBIN, TOTAL (test code = 2207) 0.2 MG/DL ALKALINE PHOSPHATASE (test code = 2204) 117 U/L AST (test code = 2218) 16 U/L ALT (test code = 2219) 16 U/L ACUTE HEPATITIS [id number] 00:00:00* Test Item Value Reference Range Interpretation Comme nts HEPATITIS A IgM (test code = 08829) NON-REACTIVE HEPATITIS B CORE IgM (test c ode = 4644) NON-REACTIVE HEPATITIS B SURF AG (test co de = 2739) NON-REACTIVE HEPATITIS C ANTIBODY (test c ode = 4693) NON-REACTIVE INTERPRETATION HEPATITIS A: (test code = 2552) (NOTE) INTERPRETATION HEPATITIS B: (test code = 44606) (NOTE) INTERPRETATION HEPATITIS C: (test code = 16771) (NOTE) [id number] 00:00:00* Test Item Value Reference Range Interpretation Comme nts TSH, THIRD GENERATION (test code = 2821) 0.553 UIU/ML LIPID [id number] 00:00:00* Test Item Value Reference Range Interpretation Comme nts CHOLESTEROL (test code = 2210) 213 MG/DL TRIGLYCERIDES (test code = 2232) 200 MG/DL HDL CHOLESTEROL (test code = 2220) 43 MG/DL CALC LDL CHOL (test code = 2237) 136 MG/DL RISK RATIO LDL/HDL (test cod e = 2238) 3.16 RATIO COMPREHENSIVE METABOLIC [id number] 00:00:00* Test Item Value Reference Range Interpretation Comme nts GLUCOSE (test code = 2217) 68 MG/DL BUN (test code = 2208) 7 MG/DL CREATININE (test code = 2214) 0.70 MG/DL eGFR (2020 CKD-EPI) (test code = 68327) 108 ML/MIN/1.73 CALC BUN/CREAT (test code = 2235) 10 RATIO SODIUM (test code = 2231) 138 MEQ/L POTASSIUM (test code = 2228) 4.0 MEQ/L CHLORIDE (test code = 2215) 98 MEQ/L CARBON DIOXIDE (test code = 2206) 24 MEQ/L CALCIUM (test code = 2209) 10.8 MG/DL PROTEIN, TOTAL (test code = 2229) 8.5 G/DL ALBUMIN (test code = 2201) 4.1 G/DL CALC GLOBULIN (test code = 2240) 4.4 G/DL CALC A/G RATIO (test code = 2234) 0.9 RATIO BILIRUBIN, TOTAL (test code = 2207) 0.2 MG/DL ALKALINE PHOSPHATASE (test code = 2204) 117 U/L AST (test code = 2218) 16 U/L ALT (test code = 2219) 16 U/L ACUTE HEPATITIS [id number] 00:00:00* Test Item Value Reference Range Interpretation Comme nts HEPATITIS A IgM (test code = 96205) NON-REACTIVE HEPATITIS B CORE IgM (test c ode = 4635) NON-REACTIVE HEPATITIS B SURF AG (test co de = 2739) NON-REACTIVE HEPATITIS C ANTIBODY (test c ode = 4609) NON-REACTIVE INTERPRETATION HEPATITIS A: (test code = 2552) (NOTE) INTERPRETATION HEPATITIS B: (test code = 08064) (NOTE) INTERPRETATION HEPATITIS C: (test code = 94290) (NOTE) [id number] 00:00:00* Test Item Value Reference Range Interpretation Comme nts TSH, THIRD GENERATION (test code = 2821) 0.553 UIU/ML COMPREHENSIVE METABOLIC [id number] 00:00:00* Test Item Value Reference Range Interpretation Comme nts GLUCOSE (test code = 2217) 68 MG/DL BUN (test code = 2208) 7 MG/DL CREATININE (test code = 2214) 0.70 MG/DL eGFR (2020 CKD-EPI) (test code = 03634) 108 ML/MIN/1.73 CALC BUN/CREAT (test code = 2235) 10 RATIO SODIUM (test code = 2231) 138 MEQ/L POTASSIUM (test code = 2228) 4.0 MEQ/L CHLORIDE (test code = 2215) 98 MEQ/L CARBON DIOXIDE (test code = 2206) 24 MEQ/L CALCIUM (test code = 2209) 10.8 MG/DL PROTEIN, TOTAL (test code = 2229) 8.5 G/DL ALBUMIN (test code = 2201) 4.1 G/DL CALC GLOBULIN (test code = 2240) 4.4 G/DL CALC A/G RATIO (test code = 2234) 0.9 RATIO BILIRUBIN, TOTAL (test code = 2207) 0.2 MG/DL ALKALINE PHOSPHATASE (test code = 2204) 117 U/L AST (test code = 2218) 16 U/L ALT (test code = 2219) 16 U/L Emiliano SahuACUTE HEPATITIS [id number] 00:00:00* Test Item Value Reference Range Interpretation Comme nts HEPATITIS A IgM (test code = 86773) NON-REACTIVE HEPATITIS B CORE IgM (test c ode = 4644) NON-REACTIVE HEPATITIS B SURF AG (test co de = 2739) NON-REACTIVE HEPATITIS C ANTIBODY (test c ode = 4675) NON-REACTIVE INTERPRETATION HEPATITIS A: (test code = 2552) (NOTE) INTERPRETATION HEPATITIS B: (test code = 03749) (NOTE) INTERPRETATION HEPATITIS C: (test code = 46839) (NOTE) Emiliano [id number] 00:00:00* Test Item Value Reference Range Interpretation Comme nts TSH, THIRD GENERATION (test code = 2821) 0.553 UIU/ML Emiliano SahuLIPID [id number] 00:00:00* Test Item Value Reference Range Interpretation Comme nts CHOLESTEROL (test code = 2210) 213 MG/DL TRIGLYCERIDES (test code = 2232) 200 MG/DL HDL CHOLESTEROL (test code = 2220) 43 MG/DL CALC LDL CHOL (test code = 2237) 136 MG/DL RISK RATIO LDL/HDL (test cod e = 2238) 3.16 RATIO Emiliano SahuCOMPREHENSIVE METABOLIC [id number] 00:00:00* Test Item Value Reference Range Interpretation Comme nts GLUCOSE (test code = 2217) 68 MG/DL BUN (test code = 2208) 7 MG/DL CREATININE (test code = 2214) 0.70 MG/DL eGFR (2020 CKD-EPI) (test code = 09429) 108 ML/MIN/1.73 CALC BUN/CREAT (test code = 2235) 10 RATIO SODIUM (test code = 2231) 138 MEQ/L POTASSIUM (test code = 2228) 4.0 MEQ/L CHLORIDE (test code = 2215) 98 MEQ/L CARBON DIOXIDE (test code = 2206) 24 MEQ/L CALCIUM (test code = 2209) 10.8 MG/DL PROTEIN, TOTAL (test code = 2229) 8.5 G/DL ALBUMIN (test code = 2201) 4.1 G/DL CALC GLOBULIN (test code = 2240) 4.4 G/DL CALC A/G RATIO (test code = 2234) 0.9 RATIO BILIRUBIN, TOTAL (test code = 2207) 0.2 MG/DL ALKALINE PHOSPHATASE (test code = 2204) 117 U/L AST (test code = 2218) 16 U/L ALT (test code = 2219) 16 U/L Emiliano SahuACUTE HEPATITIS [id number] 00:00:00* Test Item Value Reference Range Interpretation Comme nts HEPATITIS A IgM (test code = 91526) NON-REACTIVE HEPATITIS B CORE IgM (test c ode = 4665) NON-REACTIVE HEPATITIS B SURF AG (test co de = 2739) NON-REACTIVE HEPATITIS C ANTIBODY (test c ode = 46) NON-REACTIVE INTERPRETATION HEPATITIS A: (test code = 2552) (NOTE) INTERPRETATION HEPATITIS B: (test code = 56377) (NOTE) INTERPRETATION HEPATITIS C: (test code = 38197) (NOTE) Emiliano [id number] 00:00:00* Test Item Value Reference Range Interpretation Comme nts TSH, THIRD GENERATION (test code = 2821) 0.553 UIU/ML Emiliano SahuLIPID [id number] 00:00:00* Test Item Value Reference Range Interpretation Comme nts CHOLESTEROL (test code = 2210) 213 MG/DL TRIGLYCERIDES (test code = 2232) 200 MG/DL HDL CHOLESTEROL (test code = 2220) 43 MG/DL CALC LDL CHOL (test code = 2237) 136 MG/DL RISK RATIO LDL/HDL (test cod e = 2238) 3.16 RATIO Emiliano SahuCOMPREHENSIVE METABOLIC [id number] 00:00:00* Test Item Value Reference Range Interpretation Comme nts GLUCOSE (test code = 2217) 68 MG/DL BUN (test code = 2208) 7 MG/DL CREATININE (test code = 2214) 0.70 MG/DL eGFR (2020 CKD-EPI) (test code = 13069) 108 ML/MIN/1.73 CALC BUN/CREAT (test code = 2235) 10 RATIO SODIUM (test code = 2231) 138 MEQ/L POTASSIUM (test code = 2228) 4.0 MEQ/L CHLORIDE (test code = 2215) 98 MEQ/L CARBON DIOXIDE (test code = 2206) 24 MEQ/L CALCIUM (test code = 2209) 10.8 MG/DL PROTEIN, TOTAL (test code = 2229) 8.5 G/DL ALBUMIN (test code = 2201) 4.1 G/DL CALC GLOBULIN (test code = 2240) 4.4 G/DL CALC A/G RATIO (test code = 2234) 0.9 RATIO BILIRUBIN, TOTAL (test code = 2207) 0.2 MG/DL ALKALINE PHOSPHATASE (test code = 2204) 117 U/L AST (test code = 2218) 16 U/L ALT (test code = 2219) 16 U/L Emiliano SahuACUTE HEPATITIS [id number] 00:00:00* Test Item Value Reference Range Interpretation Comme nts HEPATITIS A IgM (test code = 45543) NON-REACTIVE HEPATITIS B CORE IgM (test c ode = 8358) NON-REACTIVE HEPATITIS B SURF AG (test co de = 4996) NON-REACTIVE HEPATITIS C ANTIBODY (test c ode = 3183) NON-REACTIVE INTERPRETATION HEPATITIS A: (test code = 2552) (NOTE) INTERPRETATION HEPATITIS B: (test code = 53750) (NOTE) INTERPRETATION HEPATITIS C: (test code = 05043) (NOTE) Emiliano [id number] 00:00:00* Test Item Value Reference Range Interpretation Comme nts TSH, THIRD GENERATION (test code = 2821) 0.553 UIU/ML Emiliano SahuLIPID [id number] 00:00:00* Test Item Value Reference Range Interpretation Comme nts CHOLESTEROL (test code = 2210) 213 MG/DL TRIGLYCERIDES (test code = 2232) 200 MG/DL HDL CHOLESTEROL (test code = 2220) 43 MG/DL CALC LDL CHOL (test code = 2237) 136 MG/DL RISK RATIO LDL/HDL (test cod e = 2238) 3.16 RATIO Emiliano SahuCOMPREHENSIVE METABOLIC [id number] 00:00:00* Test Item Value Reference Range Interpretation Comme nts GLUCOSE (test code = 2217) 68 MG/DL BUN (test code = 2208) 7 MG/DL CREATININE (test code = 2214) 0.70 MG/DL eGFR (2020 CKD-EPI) (test code = 94584) 108 ML/MIN/1.73 CALC BUN/CREAT (test code = 2235) 10 RATIO SODIUM (test code = 2231) 138 MEQ/L POTASSIUM (test code = 2228) 4.0 MEQ/L CHLORIDE (test code = 2215) 98 MEQ/L CARBON DIOXIDE (test code = 2206) 24 MEQ/L CALCIUM (test code = 2209) 10.8 MG/DL PROTEIN, TOTAL (test code = 2229) 8.5 G/DL ALBUMIN (test code = 2201) 4.1 G/DL CALC GLOBULIN (test code = 2240) 4.4 G/DL CALC A/G RATIO (test code = 2234) 0.9 RATIO BILIRUBIN, TOTAL (test code = 2207) 0.2 MG/DL ALKALINE PHOSPHATASE (test code = 2204) 117 U/L AST (test code = 2218) 16 U/L ALT (test code = 2219) 16 U/L Emiliano SahuCBC W/AUTO DIFF WITH [id number] 21:31:09* Test Item Value Reference Range Interpretation Comme nts WBC (test code = 1001) 5.6 K/UL 3.5-11.0 RBC (test code = 1002) 4.44 M/UL 3.80-5.40 HEMOGLOBIN (test code = 1003) 13.4 G/DL 11.5-15.5 HEMATOCRIT (test code = 1004) 38.9 % 34.0-45.0 MCV (test code = 1005) 87.6 fL 80.0-99.0 MCH (test code = 1006) 30.2 PG 25.0-33.0 MCHC (test code = 1007) 34.4 G/DL 31.0-36.0 RDW (test code = 1038) 13.6 % 11.5-15.0 NEUTROPHILS (test code = 1008) 51.0 % LYMPHOCYTES (test code = 1010) 37.9 % MONOCYTES (test code = 1011) 7.5 % EOSINOPHILS (test code = 1012) 2.7 % BASOPHILS (test code = 1013) 0.5 % IMMATURE GRANULOCYTES (test code = 1036) 0.4 % NUCLEATED RBCS (test code = 1065) 0.0 /100 WBC'S See_Comment [Automated messa ge] The system which generated this result transmitted reference range: 0.0. The reference range was not used to interpret this result as normal/abnormal. PLATELET COUNT (test code = 1015) 242 K/UL 130-400 ABSOLUTE NEUTROPHILS (test code = 1066) 2.85 K/UL 1.50-7.50 ABSOLUTE LYMPHOCYTES (test code = 1067) 2.12 K/UL 1.00-4.00 ABSOLUTE MONOCYTES (test code = 1068) 0.42 K/UL 0.20-1.00 ABSOLUTE EOSINOPHILS (test code = 1040) 0.15 K/UL 0.00-0.50 ABSOLUTE BASOPHILS (test code = 1069) 0.03 K/UL 0.00-0.20 ABS IMMATURE GRANULOCYTES (test code = 1020) 0.02 K/UL 0.00-0.10 ABS NUCLEATED RBCS (test code = 40792) 0.00 K/UL 0.00-0.11 CBC W/AUTO [id number] 00:00:00* Test Item Value Reference Range Interpretation Comme nts WBC (test code = 1001) 5.6 K/UL [...] = 1013) 0.5 % IMMATURE GRANULOCYTES (test code = 1036) 0.4 % NUCLEATED RBCS (test code = 1065) 0.0 /100WBC'S PLATELET COUNT (test code = 1015) 242 K/UL ABSOLUTE NEUTROPHILS (test c ode = 1066) 2.85 K/UL ABSOLUTE LYMPHOCYTES (test c ode = 1067) 2.12 K/UL ABSOLUTE MONOCYTES (test cod e = 1068) 0.42 K/UL ABSOLUTE EOSINOPHILS (test c ode = 1040) 0.15 K/UL ABSOLUTE BASOPHILS (test cod e = 1069) 0.03 K/UL ABS IMMATURE GRANULOCYTES (t est code = 1020) 0.02 K/UL ABS NUCLEATED RBCS (test cod e = 75718) 0.00 K/UL Emiliano Mercado [facility] W/AUTO [id number] 00:00:00* Test Item Value Reference Range Interpretation Comme nts WBC (test code = 1001) 5.6 K/UL [...] = 1013) 0.5 % IMMATURE GRANULOCYTES (test code = 1036) 0.4 % NUCLEATED RBCS (test code = 1065) 0.0 /100WBC'S PLATELET COUNT (test code = 1015) 242 K/UL ABSOLUTE NEUTROPHILS (test c ode = 1066) 2.85 K/UL ABSOLUTE LYMPHOCYTES (test c ode = 1067) 2.12 K/UL ABSOLUTE MONOCYTES (test cod e = 1068) 0.42 K/UL ABSOLUTE EOSINOPHILS (test c ode = 1040) 0.15 K/UL ABSOLUTE BASOPHILS (test cod e = 1069) 0.03 K/UL ABS IMMATURE GRANULOCYTES (t est code = 1020) 0.02 K/UL ABS NUCLEATED RBCS (test cod e = 91595) 0.00 K/UL [facility]iliano Mercado [facility] W[facility]AUT[facility] [id number] 00:00:00* Test Item Value Reference Range Interpretation Comme nts WBC (test code = 1001) 5.6 K/UL [...] = 1013) 0.5 % IMMATURE GRANULOCYTES (test code = 1036) 0.4 % NUCLEATED RBCS (test code = 1065) 0.0 /100WBC'S PLATELET COUNT (test code = 1015) 242 K/UL ABSOLUTE NEUTROPHILS (test c ode = 1066) 2.85 K/UL ABSOLUTE LYMPHOCYTES (test c ode = 1067) 2.12 K/UL ABSOLUTE MONOCYTES (test cod e = 1068) 0.42 K/UL ABSOLUTE EOSINOPHILS (test c ode = 1040) 0.15 K/UL ABSOLUTE BASOPHILS (test cod e = 1069) 0.03 K/UL ABS IMMATURE GRANULOCYTES (t est code = 1020) 0.02 K/UL ABS NUCLEATED RBCS (test cod e = 90677) 0.00 K/UL CBC W/AUTO [id number] 00:00:00* Test Item Value Reference Range Interpretation Comme nts WBC (test code = 1001) 5.6 K/UL [...] = 1013) 0.5 % IMMATURE GRANULOCYTES (test code = 1036) 0.4 % NUCLEATED RBCS (test code = 1065) 0.0 /100WBC'S PLATELET COUNT (test code = 1015) 242 K/UL ABSOLUTE NEUTROPHILS (test c ode = 1066) 2.85 K/UL ABSOLUTE LYMPHOCYTES (test c ode = 1067) 2.12 K/UL ABSOLUTE MONOCYTES (test cod e = 1068) 0.42 K/UL ABSOLUTE EOSINOPHILS (test c ode = 1040) 0.15 K/UL ABSOLUTE BASOPHILS (test cod e = 1069) 0.03 K/UL ABS IMMATURE GRANULOCYTES (t est code = 1020) 0.02 K/UL ABS NUCLEATED RBCS (test cod e = 51322) 0.00 K/UL CBC W/AUTO [id number] 00:00:00* Test Item Value Reference Range Interpretation Comme nts WBC (test code = 1001) 5.6 K/UL [...] = 1013) 0.5 % IMMATURE GRANULOCYTES (test code = 1036) 0.4 % NUCLEATED RBCS (test code = 1065) 0.0 /100WBC'S PLATELET COUNT (test code = 1015) 242 K/UL ABSOLUTE NEUTROPHILS (test c ode = 1066) 2.85 K/UL ABSOLUTE LYMPHOCYTES (test c ode = 1067) 2.12 K/UL ABSOLUTE MONOCYTES (test cod e = 1068) 0.42 K/UL ABSOLUTE EOSINOPHILS (test c ode = 1040) 0.15 K/UL ABSOLUTE BASOPHILS (test cod e = 1069) 0.03 K/UL ABS IMMATURE GRANULOCYTES (t est code = 1020) 0.02 K/UL ABS NUCLEATED RBCS (test cod e = 83271) 0.00 K/UL CBC W/AUTO [id number] 00:00:00* Test Item Value Reference Range Interpretation Comme nts WBC (test code = 1001) 5.6 K/UL [...] = 1013) 0.5 % IMMATURE GRANULOCYTES (test code = 1036) 0.4 % NUCLEATED RBCS (test code = 1065) 0.0 /100WBC'S PLATELET COUNT (test code = 1015) 242 K/UL ABSOLUTE NEUTROPHILS (test c ode = 1066) 2.85 K/UL ABSOLUTE LYMPHOCYTES (test c ode = 1067) 2.12 K/UL ABSOLUTE MONOCYTES (test cod e = 1068) 0.42 K/UL ABSOLUTE EOSINOPHILS (test c ode = 1040) 0.15 K/UL ABSOLUTE BASOPHILS (test cod e = 1069) 0.03 K/UL ABS IMMATURE GRANULOCYTES (t est code = 1020) 0.02 K/UL ABS NUCLEATED RBCS (test cod e = 43248) 0.00 K/UL CBC W/AUTO [id number] 00:00:00* Test Item Value Reference Range Interpretation Comme nts WBC (test code = 1001) 5.6 K/UL [...] = 1013) 0.5 % IMMATURE GRANULOCYTES (test code = 1036) 0.4 % NUCLEATED RBCS (test code = 1065) 0.0 /100WBC'S PLATELET COUNT (test code = 1015) 242 K/UL ABSOLUTE NEUTROPHILS (test c ode = 1066) 2.85 K/UL ABSOLUTE LYMPHOCYTES (test c ode = 1067) 2.12 K/UL ABSOLUTE MONOCYTES (test cod e = 1068) 0.42 K/UL ABSOLUTE EOSINOPHILS (test c ode = 1040) 0.15 K/UL ABSOLUTE BASOPHILS (test cod e = 1069) 0.03 K/UL ABS IMMATURE GRANULOCYTES (t est code = 1020) 0.02 K/UL ABS NUCLEATED RBCS (test cod e = 70476) 0.00 K/UL CBC W/AUTO [id number] 00:00:00* Test Item Value Reference Range Interpretation Comme nts WBC (test code = 1001) 5.6 K/UL [...] = 1013) 0.5 % IMMATURE GRANULOCYTES (test code = 1036) 0.4 % NUCLEATED RBCS (test code = 1065) 0.0 /100WBC'S PLATELET COUNT (test code = 1015) 242 K/UL ABSOLUTE NEUTROPHILS (test c ode = 1066) 2.85 K/UL ABSOLUTE LYMPHOCYTES (test c ode = 1067) 2.12 K/UL ABSOLUTE MONOCYTES (test cod e = 1068) 0.42 K/UL ABSOLUTE EOSINOPHILS (test c ode = 1040) 0.15 K/UL ABSOLUTE BASOPHILS (test cod e = 1069) 0.03 K/UL ABS IMMATURE GRANULOCYTES (t est code = 1020) 0.02 K/UL ABS NUCLEATED RBCS (test cod e = 40825) 0.00 K/UL CBC W/AUTO [id number] 00:00:00* Test Item Value Reference Range Interpretation Comme nts WBC (test code = 1001) 5.6 K/UL [...] = 1013) 0.5 % IMMATURE GRANULOCYTES (test code = 1036) 0.4 % NUCLEATED RBCS (test code = 1065) 0.0 /100WBC'S PLATELET COUNT (test code = 1015) 242 K/UL ABSOLUTE NEUTROPHILS (test c ode = 1066) 2.85 K/UL ABSOLUTE LYMPHOCYTES (test c ode = 1067) 2.12 K/UL ABSOLUTE MONOCYTES (test cod e = 1068) 0.42 K/UL ABSOLUTE EOSINOPHILS (test c ode = 1040) 0.15 K/UL ABSOLUTE BASOPHILS (test cod e = 1069) 0.03 K/UL ABS IMMATURE GRANULOCYTES (t est code = 1020) 0.02 K/UL ABS NUCLEATED RBCS (test cod e = 32244) 0.00 K/UL Emiliano Mercado [employer] W/AUTO [id number] 00:00:00* Test Item Value Reference Range Interpretation Comme nts WBC (test code = 1001) 5.6 K/UL [...] = 1013) 0.5 % IMMATURE GRANULOCYTES (test code = 1036) 0.4 % NUCLEATED RBCS (test code = 1065) 0.0 /100WBC'S PLATELET COUNT (test code = 1015) 242 K/UL ABSOLUTE NEUTROPHILS (test c ode = 1066) 2.85 K/UL ABSOLUTE LYMPHOCYTES (test c ode = 1067) 2.12 K/UL ABSOLUTE MONOCYTES (test cod e = 1068) 0.42 K/UL ABSOLUTE EOSINOPHILS (test c ode = 1040) 0.15 K/UL ABSOLUTE BASOPHILS (test cod e = 1069) 0.03 K/UL ABS IMMATURE GRANULOCYTES (t est code = 1020) 0.02 K/UL ABS NUCLEATED RBCS (test cod e = 47495) 0.00 K/UL Emiliano Mercado [facility] W/AUTO [id number] 00:00:00* Test Item Value Reference Range Interpretation Comme nts WBC (test code = 1001) 5.6 K/UL [...] = 1013) 0.5 % IMMATURE GRANULOCYTES (test code = 1036) 0.4 % NUCLEATED RBCS (test code = 1065) 0.0 /100WBC'S PLATELET COUNT (test code = 1015) 242 K/UL ABSOLUTE NEUTROPHILS (test c ode = 1066) 2.85 K/UL ABSOLUTE LYMPHOCYTES (test c ode = 1067) 2.12 K/UL ABSOLUTE MONOCYTES (test cod e = 1068) 0.42 K/UL ABSOLUTE EOSINOPHILS (test c ode = 1040) 0.15 K/UL ABSOLUTE BASOPHILS (test cod e = 1069) 0.03 K/UL ABS IMMATURE GRANULOCYTES (t est code = 1020) 0.02 K/UL ABS NUCLEATED RBCS (test cod e = 00654) 0.00 K/UL Emiliano Mercado [place] [id number] 03:18:19* Test Item Value Reference Range Interpretation Comme nts HEMOGLOBIN A1c (test code = 21421) 5.8 % 4.2-5.6 H UNLESS OTHERWISE INDICATED, [facility] [address] [place] [address], [place] [address] CARTOGRAPHY TECHNICIAN: NASH WEEKS M.D. CLIA NUMBER [id number] [facility] [place]. [id number] HIV 1/2 4TH GEN, RFLX [id number] 03:04:30* Test Item Value Reference Range Interpretation Comme nts HIV 1/2 4TH GEN, RFLX CONF ( test code = 3514) NON-REACTIVE NON-REACTIVE HIV AB/AG COMBO RFLX [id number] 00:00:00* Test Item Value Reference Range Interpretation Comme nts HIV 1/2 4TH GEN, RFLX CONF ( test code = 3514) NON-REACTIVE Emiliano SahuHEMOGLOBIN [id number] 00:00:00* Test Item Value Reference Range Interpretation Comme nts HEMOGLOBIN A1c (test code = 27740) 5.8 % Emiliano F AustinHIV AB/AG COMBO RFLX [id number] 00:00:00* Test Item Value Reference Range Interpretation Comme nts HIV 1/2 4TH GEN, RFLX CONF ( test code = 3514) NON-REACTIVE Emiliano F AustinHIV AB/AG COMBO RFLX [id number] 00:00:00* Test Item Value Reference Range Interpretation Comme nts HIV 1/2 4TH GEN, RFLX CONF ( test code = 3514) NON-REACTIVE HEMOGLOBIN [id number] 00:00:00* Test Item Value Reference Range Interpretation Comme nts HEMOGLOBIN A1c (test code = 10309) 5.8 % HIV AB/AG COMBO RFLX [id number] 00:00:00* Test Item Value Reference Range Interpretation Comme nts HIV 1/2 4TH GEN, RFLX CONF ( test code = 3514) NON-REACTIVE HIV AB/AG COMBO RFLX [id number] 00:00:00* Test Item Value Reference Range Interpretation Comme nts HIV 1/2 4TH GEN, RFLX CONF ( test code = 3514) NON-REACTIVE HEMOGLOBIN [id number] 00:00:00* Test Item Value Reference Range Interpretation Comme nts HEMOGLOBIN A1c (test code = 00736) 5.8 % HEMOGLOBIN [id number] 00:00:00* Test Item Value Reference Range Interpretation Comme nts HEMOGLOBIN A1c (test code = 18375) 5.8 % HIV AB/AG COMBO RFLX [id number] 00:00:00* Test Item Value Reference Range Interpretation Comme nts HIV 1/2 4TH GEN, RFLX CONF ( test code = 3514) NON-REACTIVE HEMOGLOBIN [id number] 00:00:00* Test Item Value Reference Range Interpretation Comme nts HEMOGLOBIN A1c (test code = 84162) 5.8 % HIV AB/AG COMBO RFLX [id number] 00:00:00* Test Item Value Reference Range Interpretation Comme nts HIV 1/2 4TH GEN, RFLX CONF ( test code = 3514) NON-REACTIVE HEMOGLOBIN [id number] 00:00:00* Test Item Value Reference Range Interpretation Comme nts HEMOGLOBIN A1c (test code = 87323) 5.8 % HIV AB/AG COMBO RFLX [id number] 00:00:00* Test Item Value Reference Range Interpretation Comme nts HIV 1/2 4TH GEN, RFLX CONF ( test code = 3514) NON-REACTIVE HEMOGLOBIN [id number] 00:00:00* Test Item Value Reference Range Interpretation Comme nts HEMOGLOBIN A1c (test code = 71089) 5.8 % Emiliano F AustinHEMOGLOBIN [id number] 00:00:00* Test Item Value Reference Range Interpretation Comme nts HEMOGLOBIN A1c (test code = 45286) 5.8 % HIV AB/AG COMBO RFLX [id number] 00:00:00* Test Item Value Reference Range Interpretation Comme nts HIV 1/2 4TH GEN, RFLX CONF ( test code = 3514) NON-REACTIVE Emiliano F AustinHEMOGLOBIN [id number] 00:00:00* Test Item Value Reference Range Interpretation Comme nts HEMOGLOBIN A1c (test code = 51632) 5.8 % Emiliano F AustinHIV AB/AG COMBO RFLX [id number] 00:00:00* Test Item Value Reference Range Interpretation Comme nts HIV 1/2 4TH GEN, RFLX CONF ( test code = 3514) NON-REACTIVE Emiliano F AustinHEMOGLOBIN [id number] 00:00:00* Test Item Value Reference Range Interpretation Comme nts HEMOGLOBIN A1c (test code = 48028) 5.8 % Emiliano F AustinHIV AB/AG COMBO RFLX [id number] 00:00:00* Test Item Value Reference Range Interpretation Comme nts HIV 1/2 4TH GEN, RFLX CONF ( test code = 3514) NON-REACTIVE Emiliano F AustinHEMOGLOBIN [id number] 00:00:00* Test Item Value Reference Range Interpretation Comme nts HEMOGLOBIN A1c (test code = 62666) 5.8 % Emiliano F AustinCOMP. METABOLIC PANEL (45995)[id number] 21:13:43* Test Item Value Reference Range Interpretation Comme nts NA (test code = 6902462627) 136 mmol/L 135-145 K (test code = 3894796717) 4.3 mmol/L 3.5-5.0 CL (test code = 3753493827) 96 mmol/L 98-108 L CO2 TOTAL (test code = 4586987735) 28 mmol/L 23-31 AGAP (test code = 6637672158) 2-16 BUN (test code = 3312384795) 9 mg/dL 7-23 GLUCOSE (test code = 5251385181) 102 mg/dL 70-110 CREATININE (test code = 3372372099) 0.69 mg/dL 0.50-1.04 TOTAL BILI (test code = 3106664968) 0.4 mg/dL 0.1-1.1 CALCIUM (test code = 5377808711) 11.0 mg/dL 8.6-10.6 H T PROTEIN (test code = 1880597965) 9.2 g/dL 6.3-8.2 H ALBUMIN (test code = 3663784817) 4.5 g/dL 3.5-5.0 ALK PHOS (test code = 1162183601) 113 U/L 34-122 ALTv (test code = 1742-6) 22 U/L 5-35 AST(SGOT) (test code = 9196957162) 25 U/L 13-40 eGFR (test code = 4077216447) mL/min/1.73m2 YANIRA (test code = YANIRA) Association [...] imaging tests). Lab Interpretation (test code = 28665-3) [facility]normal [facility] [id number] 21:13:17* Test Item Value Reference Range Interpretation Comme nts CK (test code = 8923008014) 118 U/L 33-194 Lab Interpretation (test cod e = 86428-7) Normal [facility] WITH [id number] 21:01:01* Test Item Value Reference Range Interpretation Comme nts WBC (test code = 6690-2) See_Comment [Automated Specpage] The system which generated this result transmitted reference range: 4.30 - 11.10 10*3/?L. The reference range was not used to interpret this result as normal/abnormal. RBC (test code = 789-8) See_Comment [VoltDB] The system which generated this result transmitted reference range: 3.93 - 5.25 10*6/?L. The reference range was not used to interpret this result as normal/abnormal. HGB (test code = 718-7) 13.3 g/dL 11.6-15.0 HCT (test code = 4544-3) 39.8 % 35.7-45.2 MCV (test code = 787-2) 88.4 fL 80.6-95.5 MCH (test code = 785-6) 29.6 pg 25.9-32.8 MCHC (test code = 786-4) 33.4 g/dL 31.6-35.1 RDW-SD (test code = 61003-3) 40.6 fL 39.0-49.9 RDW-CV (test code = 788-0) 12.6 % 12.0-15.5 PLT (test code = 777-3) See_Comment [Automated messa ge] The system which generated this result transmitted reference range: 166 - 358 10*3/?L. The reference range was not used to interpret this result as normal/abnormal. MPV (test code = 50626-6) 9.8 fL 9.5-12.9 NRBC/100 WBC (test code = 4784385638) See_Comment [Automated me ssage] The system which generated this result transmitted reference range: 0.0 - 10.0 /100 WBCs. The reference range was not used to interpret this result as normal/abnormal. NRBC x10^3 (test code = 4516531689) <0.01 See_Comment [Automated me ssage] The system which generated this result transmitted reference range: 10*3/?L. The reference range was not used to interpret this result as normal/abnormal. GRAN MAT (NEUT) % (test code = 770-8) 61.0 % IMM GRAN % (test code = 2258519605) 0.20 % LYMPH % (test code = 736-9) 30.1 % MONO % (test code = 5905-5) 6.4 % EOS % (test code = 713-8) 2.1 % BASO % (test code = 706-2) 0.2 % GRAN MAT x10^3(ANC) (test code = 7985233589) 5.35 10*3/uL 1.88-7.09 IMM GRAN x10^3 (test code = 7208054699) <0.03 0.00-0.06 LYMPH x10^3 (test code = 731-0) 2.64 10*3/uL 1.32-3.29 MONO x10^3 (test code = 742-7) 0.56 10*3/uL 0.33-0.92 EOS x10^3 (test code = 711-2) 0.18 10*3/uL 0.03-0.39 BASO x10^3 (test code = 704-7) <0.03 0.01-0.07 [facility] [place]OW[facility] [id number] 20:49:00* Test Item Value Reference Range Interpretation Comme nts POCT PREG (test code = 1605) Negative On board controls acceptable with C Line (test code = 3574) Present POCT PREG LOT # (test code = 3575) HCG [id number] POCT PREG TEST DATE ( test code = 3576) 05/23/2022 Lab Interpretation (test cod e = 31350-3) Normal [facility] DallasTROP[facility] [id number] 01:38:03* Test Item Value Reference Range Interpretation Comme nts TROPONIN I (test code = 6073834498) 0.002 ng/mL See_Comment [Automated message] The system which generated this result transmitted reference range: <=0.034. The reference range was not used to interpret this result as normal/abnormal. YANIRA (test code = YANIRA) Equal or [...] use of biotin. ? Lab Interpretation (test code = 29463-2) Normal [facility] [place]COM. METABOLIC PANEL (86012)2020-09-11 01:38:03* Test Item Value Reference Range Interpretation Comme nts NA (test code = 9351763555) 141 mmol/L 135-145 K (test code = 8824468751) 3.9 mmol/L 3.5-5.0 CL (test code = 3447049089) 103 mmol/L 98-108 CO2 TOTAL (test code = 0069745460) 27 mmol/L 23-31 AGAP (test code = 8431137257) 2-16 BUN (test code = 5680302226) 13 mg/dL 7-23 GLUCOSE (test code = 4470424771) 131 mg/dL 70-110 H CREATININE (test code = 8208783586) 0.76 mg/dL 0.50-1.04 TOTAL BILI (test code = 2407409141) 0.4 mg/dL 0.1-1.1 CALCIUM (test code = 3808330658) 11.4 mg/dL 8.6-10.6 H T PROTEIN (test code = 0496935307) 9.5 g/dL 6.3-8.2 H ALBUMIN (test code = 7363955078) 4.6 g/dL 3.5-5.0 ALK PHOS (test code = 9445056898) 108 U/L 34-122 ALTv (test code = 1742-6) 26 U/L 5-35 AST(SGOT) (test code = 9020362358) 33 U/L 13-40 eGFR (test code = 0148802947) mL/min/1.73m2 YANIRA (test code = YANIRA) Association [...] imaging tests). Lab Interpretation (test code = 86030-1) Abnormal [facility] DallasLIP[facility], [id number] 01:38:03* Test Item Value Reference Range Interpretation Comme [facility] LIPASE (test code = 7818699409) 195 U/L 0-220 Lab Interpretation (test cod e = 64623-1) Normal [facility] DallasaPTT2021-06-19 01:20:00* Test Item Value Reference Range Interpretation Comme [facility] APTT Patient (test code = 3173-2) See_Comment [Automated message] The system which generated this result transmitted reference range: 23 - 38 Seconds. The reference range was not used to interpret this result as normal/abnormal. YANIRA (test code = YANIRA) The [facility] patient population mean normal value for aPTT is 30 seconds. Lab Interpretation (test code = 99021-9) Normal [facility] DallasPROTHROMBIN TIME / [id number] 01:17:58* Test Item Value Reference Range Interpretation Comme [facility] PROTIME PATIENT (test code = 5964-2) See_Comment [Automated Specpage] The system which generated this result transmitted reference range: 12.0 - 14.7 Seconds. The reference range was not used to interpret this result as normal/abnormal. INR (test code = 6301-6) Normal INR <1.1; Warfarin Therapeutic range 2.0 to 3.0 or 2.5 to 3.5, depending upon the indications. Lab Interpretation (test code = 25509-0) Normal [facility] [place]CBC WITH [id number] 01:10:57* Test Item Value Reference Range Interpretation Comme [facility] WBC (test code = 6690-2) See_Comment [Automated Specpage] The system which generated this result transmitted reference range: 4.30 - 11.10 10*3/?L. The reference range was not used to interpret this result as normal/abnormal. RBC (test code = 789-8) See_Comment [Automated [employer]] The system which generated this result transmitted reference range: 3.93 - 5.25 10*6/?L. The reference range was not used to interpret this result as normal/abnormal. HGB (test code = 718-7) 12.5 g/dL 11.6-15.0 HCT (test code = 4544-3) 38.1 % 35.7-45.2 MCV (test code = 787-2) 88.4 fL 80.6-95.5 MCH (test code = 785-6) 29.0 pg 25.9-32.8 MCHC (test code = 786-4) 32.8 g/dL 31.6-35.1 RDW-SD (test code = 43741-8) 40.8 fL 39.0-49.9 RDW-CV (test code = 788-0) 12.6 % 12.0-15.5 PLT (test code = 777-3) See_Comment [Automated [employer]] The system which generated this result transmitted reference range: 166 - 358 10*3/?L. The reference range was not used to interpret this result as normal/abnormal. MPV (test code = 31096-4) 10.0 fL 9.5-12.9 NRBC/100 WBC (test code = 2767300764) See_Comment [Automated [employer]] The system which generated this result transmitted reference range: 0.0 - 10.0 /100 WBCs. The reference range was not used to interpret this result as normal/abnormal. NRBC x10^3 (test code = 0835169631) <0.01 See_Comment [Automated Pos[employer]ge] The system which generated this result transmitted reference range: 10*3/?L. The reference range was not used to interpret this result as normal/abnormal. GRAN MAT (NEUT) % (test code = 770-8) 53.6 % IMM GRAN % (test code = 2623999611) 0.30 % LYMPH % (test code = 736-9) 35.7 % MONO % (test code = 5905-5) 7.7 % EOS % (test code = 713-8) 2.4 % BASO % (test code = 706-2) 0.3 % GRAN MAT x10^3(ANC) (test code = 4866051302) 3.94 10*3/uL 1.88-7.09 IMM GRAN x10^3 (test code = 0267952048) <0.03 0.00-0.06 LYMPH x10^3 (test code = 731-0) 2.63 10*3/uL 1.32-3.29 MONO x10^3 (test code = 742-7) 0.57 10*3/uL 0.33-0.92 EOS x10^3 (test code = 711-2) 0.18 10*3/uL 0.03-0.39 BASO x10^3 (test code = 704-7) <0.03 0.01-0.07 [facility] DallasURINALYSIS2021-02-10 22:06:00* Test Item Value Reference Range Interpretation Comme nts APPEARANCE (test code = 9697796938) Cloudy Clear A COLOR (test code = 8469864863) Yellow Yellow PH (test code = 7724779321) 4.8-8.0 SP GRAVITY (test code = 6810061916) 1.003-1.030 GLU U QUAL (test code = 8841361736) Normal Normal BLOOD (test code = 7110674389) Negative Negative INTERFERENCE FRO M ASCORBIC ACID MAY CAUSE FALSE NEGATIVE RESULT KETONES (test code = 6354278155) Negative Negative PROTEIN (test code = 2887-8) 30 mg/dL Negative A UROBILIN (test code = 0876186656) 2.0 mg/dL Normal A BILIRUBIN (test code = 4406560818) Negative Negative NITRITE (test code = 2638978594) Negative Negative LEUK ANA (test code = 1067865555) 25/uL Negative A RBC/HPF (test code = 5685496765) <1 See_Comment [Automated [employer]] The system which generated this result transmitted reference range: 0 - 3 HPF. The reference range was not used to interpret this result as normal/abnormal. WBC/HPF (test code = 0288027601) See_Comment H [Automated [employer]] The system which generated this result transmitted reference range: 0 - 5 HPF. The reference range was not used to interpret this result as normal/abnormal. BACTERIA (test code = 7797085429) Many Negative A MUCOUS (test code = 7205918587) Slight Negative LPF A AMORPHOUS (test code = 9216340791) Few Rare HPF A SQ EPITH (test code = 6737132267) HPF CA OXALATE (test code = 4372365036) See_Comment H [Automated messa ge] The system which generated this result transmitted reference range: <=1 HPF. The reference range was not used to interpret this result as normal/abnormal. Lab Interpretation (test code = 19787-8) Abnormal [facility] DallasLIPID [id number] 00:00:00* Test Item Value Reference Range Interpretation Comme nts CHOLESTEROL (test code = 2210) 191 MG/DL TRIGLYCERIDES (test code = 2232) 173 MG/DL HDL CHOLESTEROL (test code = 2220) 40 MG/DL CALC LDL CHOL (test code = 2237) 122 MG/DL RISK RATIO LDL/HDL (test cod e = 2238) 3.05 RATIO Emiliano SahuVITAMIN D, 25 [id number] 00:00:00* Test Item Value Reference Range Interpretation Comme nts VITAMIN D, 25 OH (test code = 4958) 25 NG/ML Emiliano SahuHEMOGLOBIN [id number] 00:00:00* Test Item Value Reference Range Interpretation Comme nts HEMOGLOBIN A1c (test code = 52575) 5.8 % Emiliano SahuCBC W/AUTO [id number] 00:00:00* Test Item Value Reference Range Interpretation Comme nts WBC (test code = 1001) 5.8 K/UL [...] COUNT (test code = 1015) 230 K/UL Emiliano F AustinCOMPREHENSIVE METABOLIC [id number] 00:00:00* Test Item Value Reference Range Interpretation Comme nts GLUCOSE (test code = 2217) 113 MG/DL BUN (test code = 2208) 8 MG/DL CREATININE (test code = 2214) 0.70 MG/DL eGFR AMER. (test cod e = 90327) 122 ML/MIN/1.73 eGFR NON- AMER. (test code = 33859) 105 ML/MIN/1.73 CALC BUN/CREAT (test code = 2235) 11 RATIO SODIUM (test code = 2231) 137 MEQ/L POTASSIUM (test code = 2228) 4.3 MEQ/L CHLORIDE (test code = 2215) 99 MEQ/L CARBON DIOXIDE (test code = 2206) 25 MEQ/L CALCIUM (test code = 2209) 10.6 MG/DL PROTEIN, TOTAL (test code = 2229) 8.2 G/DL ALBUMIN (test code = 2201) 4.1 G/DL CALC GLOBULIN (test code = 2240) 4.1 G/DL CALC A/G RATIO (test code = 2234) 1.0 RATIO BILIRUBIN, TOTAL (test code = 2207) 0.2 MG/DL ALKALINE PHOSPHATASE (test code = 2204) 100 U/L AST (test code = 2218) 19 U/L ALT (test code = 2219) 18 U/L Emiliano SahuLIPID [id number] 00:00:00* Test Item Value Reference Range Interpretation Comme nts CHOLESTEROL (test code = 2210) 191 MG/DL TRIGLYCERIDES (test code = 2232) 173 MG/DL HDL CHOLESTEROL (test code = 2220) 40 MG/DL CALC LDL CHOL (test code = 2237) 122 MG/DL RISK RATIO LDL/HDL (test cod e = 2238) 3.05 RATIO Emiliano SahuVITAMIN D, 25 [id number] 00:00:00* Test Item Value Reference Range Interpretation Comme [facility] VITAMIN D, 25 OH (test code = 4958) 25 NG/ML Emiliano SahuHEMOGLOBIN [id number] 00:00:00* Test Item Value Reference Range Interpretation Comme [facility] HEMOGLOBIN A1c (test code = 49232) 5.8 % Emiliano SahuHEMOGLOBIN [id number] 00:00:00* Test Item Value Reference Range Interpretation Comme nts HEMOGLOBIN A1c (test code = 40788) 5.8 % CBC W/AUTO [id number] 00:00:00* Test Item Value Reference Range Interpretation Comme nts WBC (test code = 1001) 5.8 K/UL [...] code = 1015) 230 K/UL COMPREHENSIVE METABOLIC [id number] 00:00:00* Test Item Value Reference Range Interpretation Comme nts GLUCOSE (test code = 2217) 113 MG/DL BUN (test code = 2208) 8 MG/DL CREATININE (test code = 2214) 0.70 MG/DL eGFR AMER. (test cod e = 56320) 122 ML/MIN/1.73 eGFR NON- AMER. (test code = 53524) 105 ML/MIN/1.73 CALC BUN/CREAT (test code = 2235) 11 RATIO SODIUM (test code = 2231) 137 MEQ/L POTASSIUM (test code = 2228) 4.3 MEQ/L CHLORIDE (test code = 2215) 99 MEQ/L CARBON DIOXIDE (test code = 2206) 25 MEQ/L CALCIUM (test code = 2209) 10.6 MG/DL PROTEIN, TOTAL (test code = 2229) 8.2 G/DL ALBUMIN (test code = 2201) 4.1 G/DL CALC GLOBULIN (test code = 2240) 4.1 G/DL CALC A/G RATIO (test code = 2234) 1.0 RATIO BILIRUBIN, TOTAL (test code = 2207) 0.2 MG/DL ALKALINE PHOSPHATASE (test code = 2204) 100 U/L AST (test code = 2218) 19 U/L ALT (test code = 2219) 18 U/L LIPID [id number] 00:00:00* Test Item Value Reference Range Interpretation Comme nts CHOLESTEROL (test code = 2210) 191 MG/DL TRIGLYCERIDES (test code = 2232) 173 MG/DL HDL CHOLESTEROL (test code = 2220) 40 MG/DL CALC LDL CHOL (test code = 2237) 122 MG/DL RISK RATIO LDL/HDL (test cod e = 2238) 3.05 RATIO VITAMIN D, 25 [id number] 00:00:00* Test Item Value Reference Range Interpretation Comme nts VITAMIN D, 25 OH (test code = 4958) 25 NG/ML HEMOGLOBIN [id number] 00:00:00* Test Item Value Reference Range Interpretation Comme nts HEMOGLOBIN A1c (test code = 79227) 5.8 % HEMOGLOBIN [id number] 00:00:00* Test Item Value Reference Range Interpretation Comme nts HEMOGLOBIN A1c (test code = 17945) 5.8 % CBC W/AUTO [id number] 00:00:00* Test Item Value Reference Range Interpretation Comme nts WBC (test code = 1001) 5.8 K/UL [...] code = 1015) 230 K/UL COMPREHENSIVE METABOLIC [id number] 00:00:00* Test Item Value Reference Range Interpretation Comme nts GLUCOSE (test code = 2217) 113 MG/DL BUN (test code = 2208) 8 MG/DL CREATININE (test code = 2214) 0.70 MG/DL eGFR AMER. (test cod e = 00308) 122 ML/MIN/1.73 eGFR NON- AMER. (test code = 27403) 105 ML/MIN/1.73 CALC BUN/CREAT (test code = 2235) 11 RATIO SODIUM (test code = 2231) 137 MEQ/L POTASSIUM (test code = 2228) 4.3 MEQ/L CHLORIDE (test code = 2215) 99 MEQ/L CARBON DIOXIDE (test code = 2206) 25 MEQ/L CALCIUM (test code = 2209) 10.6 MG/DL PROTEIN, TOTAL (test code = 2229) 8.2 G/DL ALBUMIN (test code = 2201) 4.1 G/DL CALC GLOBULIN (test code = 2240) 4.1 G/DL CALC A/G RATIO (test code = 2234) 1.0 RATIO BILIRUBIN, TOTAL (test code = 2207) 0.2 MG/DL ALKALINE PHOSPHATASE (test code = 2204) 100 U/L AST (test code = 2218) 19 U/L ALT (test code = 2219) 18 U/L LIPID [id number] 00:00:00* Test Item Value Reference Range Interpretation Comme nts CHOLESTEROL (test code = 2210) 191 MG/DL TRIGLYCERIDES (test code = 2232) 173 MG/DL HDL CHOLESTEROL (test code = 2220) 40 MG/DL CALC LDL CHOL (test code = 2237) 122 MG/DL RISK RATIO LDL/HDL (test cod e = 2238) 3.05 RATIO VITAMIN D, 25 [id number] 00:00:00* Test Item Value Reference Range Interpretation Comme nts VITAMIN D, 25 OH (test code = 4958) 25 NG/ML CBC W/AUTO [id number] 00:00:00* Test Item Value Reference Range Interpretation Comme nts WBC (test code = 1001) 5.8 K/UL [...] code = 1015) 230 K/UL CBC W/AUTO [id number] 00:00:00* Test Item Value Reference Range Interpretation Comme nts WBC (test code = 1001) 5.8 K/UL [...] COUNT (test code = 1015) 230 K/UL Emiliano Mercado AustinHEMOGLOBIN [id number] 00:00:00* Test Item Value Reference Range Interpretation Comme nts HEMOGLOBIN A1c (test code = 05163) 5.8 % CBC W/AUTO [id number] 00:00:00* Test Item Value Reference Range Interpretation Comme nts WBC (test code = 1001) 5.8 K/UL [...] code = 1015) 230 K/UL COMPREHENSIVE METABOLIC [id number] 00:00:00* Test Item Value Reference Range Interpretation Comme nts GLUCOSE (test code = 2217) 113 MG/DL BUN (test code = 2208) 8 MG/DL CREATININE (test code = 2214) 0.70 MG/DL eGFR AMER. (test cod e = 11152) 122 ML/MIN/1.73 eGFR NON- AMER. (test code = 19673) 105 ML/MIN/1.73 CALC BUN/CREAT (test code = 2235) 11 RATIO SODIUM (test code = 2231) 137 MEQ/L POTASSIUM (test code = 2228) 4.3 MEQ/L CHLORIDE (test code = 2215) 99 MEQ/L CARBON DIOXIDE (test code = 2206) 25 MEQ/L CALCIUM (test code = 2209) 10.6 MG/DL PROTEIN, TOTAL (test code = 2229) 8.2 G/DL ALBUMIN (test code = 2201) 4.1 G/DL CALC GLOBULIN (test code = 2240) 4.1 G/DL CALC A/G RATIO (test code = 2234) 1.0 RATIO BILIRUBIN, TOTAL (test code = 2207) 0.2 MG/DL ALKALINE PHOSPHATASE (test code = 2204) 100 U/L AST (test code = 2218) 19 U/L ALT (test code = 2219) 18 U/L LIPID [id number] 00:00:00* Test Item Value Reference Range Interpretation Comme nts CHOLESTEROL (test code = 2210) 191 MG/DL TRIGLYCERIDES (test code = 2232) 173 MG/DL HDL CHOLESTEROL (test code = 2220) 40 MG/DL CALC LDL CHOL (test code = 2237) 122 MG/DL RISK RATIO LDL/HDL (test cod e = 2238) 3.05 RATIO COMPREHENSIVE METABOLIC [id number] 00:00:00* Test Item Value Reference Range Interpretation Comme nts GLUCOSE (test code = 2217) 113 MG/DL BUN (test code = 2208) 8 MG/DL CREATININE (test code = 2214) 0.70 MG/DL eGFR AMER. (test cod e = 38221) 122 ML/MIN/1.73 eGFR NON- AMER. (test code = 68107) 105 ML/MIN/1.73 CALC BUN/CREAT (test code = 2235) 11 RATIO SODIUM (test code = 2231) 137 MEQ/L POTASSIUM (test code = 2228) 4.3 MEQ/L CHLORIDE (test code = 2215) 99 MEQ/L CARBON DIOXIDE (test code = 2206) 25 MEQ/L CALCIUM (test code = 2209) 10.6 MG/DL PROTEIN, TOTAL (test code = 2229) 8.2 G/DL ALBUMIN (test code = 2201) 4.1 G/DL CALC GLOBULIN (test code = 2240) 4.1 G/DL CALC A/G RATIO (test code = 2234) 1.0 RATIO BILIRUBIN, TOTAL (test code = 2207) 0.2 MG/DL ALKALINE PHOSPHATASE (test code = 2204) 100 U/L AST (test code = 2218) 19 U/L ALT (test code = 2219) 18 U/L VITAMIN D, 25 [id number] 00:00:00* Test Item Value Reference Range Interpretation Comme [facility] VITAMIN D, 25 OH (test code = 4958) 25 NG/ML LIPID [id number] 00:00:00* Test Item Value Reference Range Interpretation Comme nts CHOLESTEROL (test code = 2210) 191 MG/DL TRIGLYCERIDES (test code = 2232) 173 MG/DL HDL CHOLESTEROL (test code = 2220) 40 MG/DL CALC LDL CHOL (test code = 2237) 122 MG/DL RISK RATIO LDL/HDL (test cod e = 2238) 3.05 RATIO HEMOGLOBIN [id number] 00:00:00* Test Item Value Reference Range Interpretation Comme [facility] HEMOGLOBIN A1c (test code = 21386) 5.8 % VITAMIN D, 25 [id number] 00:00:00* Test Item Value Reference Range Interpretation Comme [facility] VITAMIN D, 25 OH (test code = 4958) 25 NG/ML CBC W/AUTO [id number] 00:00:00* Test Item Value Reference Range Interpretation Comme [facility] WBC (test code = 1001) 5.8 K/UL [...] code = 1015) 230 K/UL COMPREHENSIVE METABOLIC [id number] 00:00:00* Test Item Value Reference Range Interpretation Comme nts GLUCOSE (test code = 2217) 113 MG/DL BUN (test code = 2208) 8 MG/DL CREATININE (test code = 2214) 0.70 MG/DL eGFR AMER. (test cod e = 33353) 122 ML/MIN/1.73 eGFR NON- AMER. (test code = 26627) 105 ML/MIN/1.73 CALC BUN/CREAT (test code = 2235) 11 RATIO SODIUM (test code = 2231) 137 MEQ/L POTASSIUM (test code = 2228) 4.3 MEQ/L CHLORIDE (test code = 2215) 99 MEQ/L CARBON DIOXIDE (test code = 2206) 25 MEQ/L CALCIUM (test code = 2209) 10.6 MG/DL PROTEIN, TOTAL (test code = 2229) 8.2 G/DL ALBUMIN (test code = 2201) 4.1 G/DL CALC GLOBULIN (test code = 2240) 4.1 G/DL CALC A/G RATIO (test code = 2234) 1.0 RATIO BILIRUBIN, TOTAL (test code = 2207) 0.2 MG/DL ALKALINE PHOSPHATASE (test code = 2204) 100 U/L AST (test code = 2218) 19 U/L ALT (test code = 2219) 18 U/L LIPID [id number] 00:00:00* Test Item Value Reference Range Interpretation Comme nts CHOLESTEROL (test code = 2210) 191 MG/DL TRIGLYCERIDES (test code = 2232) 173 MG/DL HDL CHOLESTEROL (test code = 2220) 40 MG/DL CALC LDL CHOL (test code = 2237) 122 MG/DL RISK RATIO LDL/HDL (test cod e = 2238) 3.05 RATIO VITAMIN D, 25 [id number] 00:00:00* Test Item Value Reference Range Interpretation Comme nts VITAMIN D, 25 OH (test code = 4958) 25 NG/ML HEMOGLOBIN [id number] 00:00:00* Test Item Value Reference Range Interpretation Comme nts HEMOGLOBIN A1c (test code = 17244) 5.8 % CBC W/AUTO [id number] 00:00:00* Test Item Value Reference Range Interpretation Comme nts WBC (test code = 1001) 5.8 K/UL [...] code = 1015) 230 K/UL COMPREHENSIVE METABOLIC [id number] 00:00:00* Test Item Value Reference Range Interpretation Comme nts GLUCOSE (test code = 2217) 113 MG/DL BUN (test code = 2208) 8 MG/DL CREATININE (test code = 2214) 0.70 MG/DL eGFR AMER. (test cod e = 60857) 122 ML/MIN/1.73 eGFR NON- AMER. (test code = 17962) 105 ML/MIN/1.73 CALC BUN/CREAT (test code = 2235) 11 RATIO SODIUM (test code = 2231) 137 MEQ/L POTASSIUM (test code = 2228) 4.3 MEQ/L CHLORIDE (test code = 2215) 99 MEQ/L CARBON DIOXIDE (test code = 2206) 25 MEQ/L CALCIUM (test code = 2209) 10.6 MG/DL PROTEIN, TOTAL (test code = 2229) 8.2 G/DL ALBUMIN (test code = 2201) 4.1 G/DL CALC GLOBULIN (test code = 2240) 4.1 G/DL CALC A/G RATIO (test code = 2234) 1.0 RATIO BILIRUBIN, TOTAL (test code = 2207) 0.2 MG/DL ALKALINE PHOSPHATASE (test code = 2204) 100 U/L AST (test code = 2218) 19 U/L ALT (test code = 2219) 18 U/L Emiliano SahuCOMPREHENSIVE METABOLIC [id number] 00:00:00* Test Item Value Reference Range Interpretation Comme nts GLUCOSE (test code = 2217) 113 MG/DL BUN (test code = 2208) 8 MG/DL CREATININE (test code = 2214) 0.70 MG/DL eGFR AMER. (test cod e = 60195) 122 ML/MIN/1.73 eGFR NON- AMER. (test code = 85594) 105 ML/MIN/1.73 CALC BUN/CREAT (test code = 2235) 11 RATIO SODIUM (test code = 2231) 137 MEQ/L POTASSIUM (test code = 2228) 4.3 MEQ/L CHLORIDE (test code = 2215) 99 MEQ/L CARBON DIOXIDE (test code = 2206) 25 MEQ/L CALCIUM (test code = 2209) 10.6 MG/DL PROTEIN, TOTAL (test code = 2229) 8.2 G/DL ALBUMIN (test code = 2201) 4.1 G/DL CALC GLOBULIN (test code = 2240) 4.1 G/DL CALC A/G RATIO (test code = 2234) 1.0 RATIO BILIRUBIN, TOTAL (test code = 2207) 0.2 MG/DL ALKALINE PHOSPHATASE (test code = 2204) 100 U/L AST (test code = 2218) 19 U/L ALT (test code = 2219) 18 U/L LIPID [id number] 00:00:00* Test Item Value Reference Range Interpretation Comme nts CHOLESTEROL (test code = 2210) 191 MG/DL TRIGLYCERIDES (test code = 2232) 173 MG/DL HDL CHOLESTEROL (test code = 2220) 40 MG/DL CALC LDL CHOL (test code = 2237) 122 MG/DL RISK RATIO LDL/HDL (test cod e = 2238) 3.05 RATIO VITAMIN D, 25 [id number] 00:00:00* Test Item Value Reference Range Interpretation Comme nts VITAMIN D, 25 OH (test code = 4958) 25 NG/ML LIPID [id number] 00:00:00* Test Item Value Reference Range Interpretation Comme nts CHOLESTEROL (test code = 2210) 191 MG/DL TRIGLYCERIDES (test code = 2232) 173 MG/DL HDL CHOLESTEROL (test code = 2220) 40 MG/DL CALC LDL CHOL (test code = 2237) 122 MG/DL RISK RATIO LDL/HDL (test cod e = 2238) 3.05 RATIO Emiliano SahuVITAMIN D, 25 [id number] 00:00:00* Test Item Value Reference Range Interpretation Comme nts VITAMIN D, 25 OH (test code = 4958) 25 NG/ML Emiliano SahuHEMOGLOBIN [id number] 00:00:00* Test Item Value Reference Range Interpretation Comme nts HEMOGLOBIN A1c (test code = 31899) 5.8 % Emiliano SahuCBC W/AUTO [id number] 00:00:00* Test Item Value Reference Range Interpretation Comme nts WBC (test code = 1001) 5.8 K/UL [...] COUNT (test code = 1015) 230 K/UL Emiliano SahuCOMPREHENSIVE METABOLIC [id number] 00:00:00* Test Item Value Reference Range Interpretation Comme nts GLUCOSE (test code = 2217) 113 MG/DL BUN (test code = 2208) 8 MG/DL CREATININE (test code = 2214) 0.70 MG/DL eGFR AMER. (test cod e = 80915) 122 ML/MIN/1.73 eGFR NON- AMER. (test code = 30769) 105 ML/MIN/1.73 CALC BUN/CREAT (test code = 2235) 11 RATIO SODIUM (test code = 2231) 137 MEQ/L POTASSIUM (test code = 2228) 4.3 MEQ/L CHLORIDE (test code = 2215) 99 MEQ/L CARBON DIOXIDE (test code = 2206) 25 MEQ/L CALCIUM (test code = 2209) 10.6 MG/DL PROTEIN, TOTAL (test code = 2229) 8.2 G/DL ALBUMIN (test code = 2201) 4.1 G/DL CALC GLOBULIN (test code = 2240) 4.1 G/DL CALC A/G RATIO (test code = 2234) 1.0 RATIO BILIRUBIN, TOTAL (test code = 2207) 0.2 MG/DL ALKALINE PHOSPHATASE (test code = 2204) 100 U/L AST (test code = 2218) 19 U/L ALT (test code = 2219) 18 U/L Emiliano SahuLIPID [id number] 00:00:00* Test Item Value Reference Range Interpretation Comme nts CHOLESTEROL (test code = 2210) 191 MG/DL TRIGLYCERIDES (test code = 2232) 173 MG/DL HDL CHOLESTEROL (test code = 2220) 40 MG/DL CALC LDL CHOL (test code = 2237) 122 MG/DL RISK RATIO LDL/HDL (test cod e = 2238) 3.05 RATIO Emiliano SahuVITAMIN D, 25 [id number] 00:00:00* Test Item Value Reference Range Interpretation Comme [facility] VITAMIN D, 25 OH (test code = 4958) 25 NG/ML Emiliano SahuHEMOGLOBIN [id number] 00:00:00* Test Item Value Reference Range Interpretation Comme [facility] HEMOGLOBIN A1c (test code = 25029) 5.8 % Emiliano SahuCBC W/AUTO [id number] 00:00:00* Test Item Value Reference Range Interpretation Comme nts WBC (test code = 1001) 5.8 K/UL [...] COUNT (test code = 1015) 230 K/UL Emiliano SahuCOMPREHENSIVE METABOLIC [id number] 00:00:00* Test Item Value Reference Range Interpretation Comme nts GLUCOSE (test code = 2217) 113 MG/DL BUN (test code = 2208) 8 MG/DL CREATININE (test code = 2214) 0.70 MG/DL eGFR AMER. (test cod e = 88788) 122 ML/MIN/1.73 eGFR NON- AMER. (test code = 21732) 105 ML/MIN/1.73 CALC BUN/CREAT (test code = 2235) 11 RATIO SODIUM (test code = 2231) 137 MEQ/L POTASSIUM (test code = 2228) 4.3 MEQ/L CHLORIDE (test code = 2215) 99 MEQ/L CARBON DIOXIDE (test code = 2206) 25 MEQ/L CALCIUM (test code = 2209) 10.6 MG/DL PROTEIN, TOTAL (test code = 2229) 8.2 G/DL ALBUMIN (test code = 2201) 4.1 G/DL CALC GLOBULIN (test code = 2240) 4.1 G/DL CALC A/G RATIO (test code = 2234) 1.0 RATIO BILIRUBIN, TOTAL (test code = 2207) 0.2 MG/DL ALKALINE PHOSPHATASE (test code = 2204) 100 U/L AST (test code = 2218) 19 U/L ALT (test code = 2219) 18 U/L Emiliano Mercado AustinLIPID [id number] 00:00:00* Test Item Value Reference Range Interpretation Comme nts CHOLESTEROL (test code = 2210) 191 MG/DL TRIGLYCERIDES (test code = 2232) 173 MG/DL HDL CHOLESTEROL (test code = 2220) 40 MG/DL CALC LDL CHOL (test code = 2237) 122 MG/DL RISK RATIO LDL/HDL (test cod e = 2238) 3.05 RATIO Emiliano F AustinVITAMIN D, 25 [id number] 00:00:00* Test Item Value Reference Range Interpretation Comme nts VITAMIN D, 25 OH (test code = 4958) 25 NG/ML Emiliano SahuHEMOGLOBIN [id number] 00:00:00* Test Item Value Reference Range Interpretation Comme nts HEMOGLOBIN A1c (test code = 66377) 5.8 % Emiliano SahuCBC W/AUTO [id number] 00:00:00* Test Item Value Reference Range Interpretation Comme nts WBC (test code = 1001) 5.8 K/UL [...] COUNT (test code = 1015) 230 K/UL Emiliano SahuCOMPREHENSIVE METABOLIC [id number] 00:00:00* Test Item Value Reference Range Interpretation Comme nts GLUCOSE (test code = 2217) 113 MG/DL BUN (test code = 2208) 8 MG/DL CREATININE (test code = 2214) 0.70 MG/DL eGFR AMER. (test cod e = 22971) 122 ML/MIN/1.73 eGFR NON- AMER. (test code = 29385) 105 ML/MIN/1.73 CALC BUN/CREAT (test code = 2235) 11 RATIO SODIUM (test code = 2231) 137 MEQ/L POTASSIUM (test code = 2228) 4.3 MEQ/L CHLORIDE (test code = 2215) 99 MEQ/L CARBON DIOXIDE (test code = 2206) 25 MEQ/L CALCIUM (test code = 2209) 10.6 MG/DL PROTEIN, TOTAL (test code = 2229) 8.2 G/DL ALBUMIN (test code = 2201) 4.1 G/DL CALC GLOBULIN (test code = 2240) 4.1 G/DL CALC A/G RATIO (test code = 2234) 1.0 RATIO BILIRUBIN, TOTAL (test code = 2207) 0.2 MG/DL ALKALINE PHOSPHATASE (test code = 2204) 100 U/L AST (test code = 2218) 19 U/L ALT (test code = 2219) 18 U/L Emiliano Mercado AustinTHYROID II PROFILE (T3U, T4, T7, TSH)2019-08-01 00:00:00* Test Item Value Reference Range Interpretation Comme nts T-UPTAKE (test code = 2817) 27.2 % THYROX. BIND. CAPAC. (test c ode = 84755) 1.2 T4 (THYROXINE) (test code = 2819) 8.4 UG/DL CORRECTED T4 (FTI) (test cod e = 2820) 7.0 UG/DL TSH, THIRD GENERATION (test code = 2821) 0.862 UIU/ML Emiliano AustinTHYROID II PROFILE (T3U, T4, T7, TSH)2019-08-01 00:00:00* Test Item Value Reference Range Interpretation Comme nts T-UPTAKE (test code = 2817) 27.2 % THYROX. BIND. CAPAC. (test c ode = 03477) 1.2 T4 (THYROXINE) (test code = 2819) 8.4 UG/DL CORRECTED T4 (FTI) (test cod e = 2820) 7.0 UG/DL TSH, THIRD GENERATION (test code = 2821) 0.862 UIU/ML THYROID II PROFILE (T3U, T4, T7, TSH)2019-08-01 00:00:00* Test Item Value Reference Range Interpretation Comme nts T-UPTAKE (test code = 2817) 27.2 % THYROX. BIND. CAPAC. (test c ode = 22963) 1.2 T4 (THYROXINE) (test code = 2819) 8.4 UG/DL CORRECTED T4 (FTI) (test cod e = 2820) 7.0 UG/DL TSH, THIRD GENERATION (test code = 2821) 0.862 UIU/ML Emiliano F AustinTHYROID II PROFILE (T3U, T4, T7, TSH)2019-08-01 00:00:00* Test Item Value Reference Range Interpretation Comme nts T-UPTAKE (test code = 2817) 27.2 % THYROX. BIND. CAPAC. (test c ode = 80917) 1.2 T4 (THYROXINE) (test code = 2819) 8.4 UG/DL CORRECTED T4 (FTI) (test cod e = 2820) 7.0 UG/DL TSH, THIRD GENERATION (test code = 2821) 0.862 UIU/ML THYROID II PROFILE (T3U, T4, T7, TSH)2019-08-01 00:00:00* Test Item Value Reference Range Interpretation Comme nts T-UPTAKE (test code = 2817) 27.2 % THYROX. BIND. CAPAC. (test c ode = 83573) 1.2 T4 (THYROXINE) (test code = 2819) 8.4 UG/DL CORRECTED T4 (FTI) (test cod e = 2820) 7.0 UG/DL TSH, THIRD GENERATION (test code = 2821) 0.862 UIU/ML THYROID II PROFILE (T3U, T4, T7, TSH)2019-08-01 00:00:00* Test Item Value Reference Range Interpretation Comme nts T-UPTAKE (test code = 2817) 27.2 % THYROX. BIND. CAPAC. (test c ode = 17010) 1.2 T4 (THYROXINE) (test code = 2819) 8.4 UG/DL CORRECTED T4 (FTI) (test cod e = 2820) 7.0 UG/DL TSH, THIRD GENERATION (test code = 2821) 0.862 UIU/ML THYROID II PROFILE (T3U, T4, T7, TSH)2019-08-01 00:00:00* Test Item Value Reference Range Interpretation Comme nts T-UPTAKE (test code = 2817) 27.2 % THYROX. BIND. CAPAC. (test c ode = 11195) 1.2 T4 (THYROXINE) (test code = 2819) 8.4 UG/DL CORRECTED T4 (FTI) (test cod e = 2820) 7.0 UG/DL TSH, THIRD GENERATION (test code = 2821) 0.862 UIU/ML THYROID II PROFILE (T3U, T4, T7, TSH)2019-08-01 00:00:00* Test Item Value Reference Range Interpretation Comme nts T-UPTAKE (test code = 2817) 27.2 % THYROX. BIND. CAPAC. (test c ode = 53546) 1.2 T4 (THYROXINE) (test code = 2819) 8.4 UG/DL CORRECTED T4 (FTI) (test cod e = 2820) 7.0 UG/DL TSH, THIRD GENERATION (test code = 2821) 0.862 UIU/ML THYROID II PROFILE (T3U, T4, T7, TSH)2019-08-01 00:00:00* Test Item Value Reference Range Interpretation Comme nts T-UPTAKE (test code = 2817) 27.2 % THYROX. BIND. CAPAC. (test c ode = 31961) 1.2 T4 (THYROXINE) (test code = 2819) 8.4 UG/DL CORRECTED T4 (FTI) (test cod e = 2820) 7.0 UG/DL TSH, THIRD GENERATION (test code = 2821) 0.862 UIU/ML Emiliano Mercado PrescottTHYROID II PROFILE (T3U, T4, T7, TSH)2019-08-01 00:00:00* Test Item Value Reference Range Interpretation Comme nts T-UPTAKE (test code = 2817) 27.2 % THYROX. BIND. CAPAC. (test c ode = 37922) 1.2 T4 (THYROXINE) (test code = 2819) 8.4 UG/DL CORRECTED T4 (FTI) (test cod e = 2820) 7.0 UG/DL TSH, THIRD GENERATION (test code = 2821) 0.862 UIU/ML Emiliano Mercado PrescottTHYROID II PROFILE (T3U, T4, T7, TSH)2019-08-01 00:00:00* Test Item Value Reference Range Interpretation Comme nts T-UPTAKE (test code = 2817) 27.2 % THYROX. BIND. CAPAC. (test c ode = 61687) 1.2 T4 (THYROXINE) (test code = 2819) 8.4 UG/DL CORRECTED T4 (FTI) (test cod e = 2820) 7.0 UG/DL TSH, THIRD GENERATION (test code = 2821) 0.862 UIU/ML Emiliano Mercado [id number] 22:31:00* Test Item Value Reference Range Interpretation Comme nts CDC HIV 4th GEN (test code = CDC HIV 4th GEN) Negative *NA*(03/29/18 4:31 PM) [facility] [id number] 21:03:00* Test Item Value Reference Range Interpretation Comme nts Troponin-I (test code = Troponin-I) no gt <=0.40 [facility] [id number] 21:03:00* Test Item Value Reference Range Interpretation Comme nts AGAP (test code = AGAP) 14.2 10.0-20.0 Calcium Lvl (test code = Calcium Lvl) 11.2 8.5-10.5 Potassium Lvl (test code = P otassium Lvl) 4.2 3.5-5.1 Sodium Lvl (test code = Sodium Lvl) 139 135-145 CO2 (test code = CO2) 27 24-32 Chloride Lvl (test code = Chloride Lvl) 102 95-109 Creatinine Lvl (test code = Creatinine Lvl) 0.90 0.50-1.40 BUN (test code = BUN) 11 7-22 Glucose Lvl (test code = Glucose Lvl) 97 70-99 eGFR (test code = eGFR) 79 [facility] [id number] 21:03:00* Test Item Value Reference Range Interpretation Comme nts Hgb (test code = Hgb) 14.1 12.0-16.0 MCV (test code = MCV) 89.6 80.0-98.0 Hct (test code = Hct) 42.0 36.0-48.0 MPV (test code = MPV) 8.4 7.4-10.4 WBC (test code = WBC) 6.4 3.7-10.4 RBC (test code = RBC) 4.68 4.20-5.40 RDW (test code = RDW) 12.9 11.5-14.5 MCH (test code = MCH) 30.1 pg 27.0-31.0 MCHC (test code = MCHC) 33.6 32.0-36.0 Platelet (test code = Platelet) 221 133-450 [facility] HEPATITIS [id number] 00:00:00* Test Item Value Reference Range Interpretation Comme nts HEPATITIS A IgM (test code = 33558) NON-REACTIVE HEPATITIS B CORE IgM (test c ode = 4644) NON-REACTIVE HEPATITIS B SURF AG (test co de = 2739) NON-REACTIVE HEPATITIS C ANTIBODY (test c ode = 4675) NON-REACTIVE INTERPRETATION HEPATITIS A: (test code = 2552) (NOTE) INTERPRETATION HEPATITIS B: (test code = 87492) (NOTE) INTERPRETATION HEPATITIS C: (test code = 11633) (NOTE) Emiliano [id number] 00:00:00* Test Item Value Reference Range Interpretation Comme nts RPR RESULT (test code = 3501) NON-REACTIVE RPR TITER (test code = 3500) NOT INDIC. TITER Emiliano SahuHIV AB/AG COMBO RFLX [id number] 00:00:00* Test Item Value Reference Range Interpretation Comme nts HIV 1/2 4TH GEN, RFLX CONF ( test code = 3514) NON-REACTIVE Emiliano SahuGC AND CHLAMYDIA, AMPLIFIED, [id number] 00:00:00* Test Item Value Reference Range Interpretation Comme nts GONORRHEA, TMA (test code = 33771) NEGATIVE CHLAMYDIA, TMA (test code = 77326) NEGATIVE Emiliano SahuACUTE HEPATITIS [id number] 00:00:00* Test Item Value Reference Range Interpretation Comme nts HEPATITIS A IgM (test code = 30488) NON-REACTIVE HEPATITIS B CORE IgM (test c ode = 4644) NON-REACTIVE HEPATITIS B SURF AG (test co de = 2739) NON-REACTIVE HEPATITIS C ANTIBODY (test c ode = 4675) NON-REACTIVE INTERPRETATION HEPATITIS A: (test code = 2552) (NOTE) INTERPRETATION HEPATITIS B: (test code = 66858) (NOTE) INTERPRETATION HEPATITIS C: (test code = 29070) (NOTE) Emiliano [id number] 00:00:00* Test Item Value Reference Range Interpretation Comme nts RPR RESULT (test code = 3501) NON-REACTIVE RPR TITER (test code = 3500) NOT INDIC. TITER Emiliano [id number] 00:00:00* Test Item Value Reference Range Interpretation Comme nts RPR RESULT (test code = 3501) NON-REACTIVE RPR TITER (test code = 3500) NOT INDIC. TITER HIV AB/AG COMBO RFLX [id number] 00:00:00* Test Item Value Reference Range Interpretation Comme nts HIV 1/2 4TH GEN, RFLX CONF ( test code = 3514) NON-REACTIVE GC AND CHLAMYDIA, AMPLIFIED, [id number] 00:00:00* Test Item Value Reference Range Interpretation Comme nts GONORRHEA, TMA (test code = 68041) NEGATIVE CHLAMYDIA, TMA (test code = 24886) NEGATIVE ACUTE HEPATITIS [id number] 00:00:00* Test Item Value Reference Range Interpretation Comme nts HEPATITIS A IgM (test code = 60219) NON-REACTIVE HEPATITIS B CORE IgM (test c ode = 4644) NON-REACTIVE HEPATITIS B SURF AG (test co de = 2739) NON-REACTIVE HEPATITIS C ANTIBODY (test c ode = 4675) NON-REACTIVE INTERPRETATION HEPATITIS A: (test code = 2552) (NOTE) INTERPRETATION HEPATITIS B: (test code = 59695) (NOTE) INTERPRETATION HEPATITIS C: (test code = 26929) (NOTE) [id number] 00:00:00* Test Item Value Reference Range Interpretation Comme nts RPR RESULT (test code = 3501) NON-REACTIVE RPR TITER (test code = 3500) NOT INDIC. TITER [id number] 00:00:00* Test Item Value Reference Range Interpretation Comme nts RPR RESULT (test code = 3501) NON-REACTIVE RPR TITER (test code = 3500) NOT INDIC. TITER HIV AB/AG COMBO RFLX [id number] 00:00:00* Test Item Value Reference Range Interpretation Comme nts HIV 1/2 4TH GEN, RFLX CONF ( test code = 3514) NON-REACTIVE GC AND CHLAMYDIA, AMPLIFIED, [id number] 00:00:00* Test Item Value Reference Range Interpretation Comme nts GONORRHEA, TMA (test code = 13076) NEGATIVE CHLAMYDIA, TMA (test code = 96859) NEGATIVE ACUTE HEPATITIS [id number] 00:00:00* Test Item Value Reference Range Interpretation Comme nts HEPATITIS A IgM (test code = 06333) NON-REACTIVE HEPATITIS B CORE IgM (test c ode = 4644) NON-REACTIVE HEPATITIS B SURF AG (test co de = 2739) NON-REACTIVE HEPATITIS C ANTIBODY (test c ode = 4675) NON-REACTIVE INTERPRETATION HEPATITIS A: (test code = 2552) (NOTE) INTERPRETATION HEPATITIS B: (test code = 29824) (NOTE) INTERPRETATION HEPATITIS C: (test code = 73604) (NOTE) HIV AB/AG COMBO RFLX [id number] 00:00:00* Test Item Value Reference Range Interpretation Comme nts HIV 1/2 4TH GEN, RFLX CONF ( test code = 3514) NON-REACTIVE [id number] 00:00:00* Test Item Value Reference Range Interpretation Comme nts RPR RESULT (test code = 3501) NON-REACTIVE RPR TITER (test code = 3500) NOT INDIC. TITER HIV AB/AG COMBO RFLX [id number] 00:00:00* Test Item Value Reference Range Interpretation Comme nts HIV 1/2 4TH GEN, RFLX CONF ( test code = 3514) NON-REACTIVE GC AND CHLAMYDIA, AMPLIFIED, [id number] 00:00:00* Test Item Value Reference Range Interpretation Comme nts GONORRHEA, TMA (test code = 07383) NEGATIVE CHLAMYDIA, TMA (test code = 25927) NEGATIVE GC AND CHLAMYDIA, AMPLIFIED, [id number] 00:00:00* Test Item Value Reference Range Interpretation Comme nts GONORRHEA, TMA (test code = 56491) NEGATIVE CHLAMYDIA, TMA (test code = 79790) NEGATIVE ACUTE HEPATITIS [id number] 00:00:00* Test Item Value Reference Range Interpretation Comme nts HEPATITIS A IgM (test code = 22048) NON-REACTIVE HEPATITIS B CORE IgM (test c ode = 4644) NON-REACTIVE HEPATITIS B SURF AG (test co de = 2739) NON-REACTIVE HEPATITIS C ANTIBODY (test c ode = 4675) NON-REACTIVE INTERPRETATION HEPATITIS A: (test code = 2552) (NOTE) INTERPRETATION HEPATITIS B: (test code = 97072) (NOTE) INTERPRETATION HEPATITIS C: (test code = 64965) (NOTE) ACUTE HEPATITIS [id number] 00:00:00* Test Item Value Reference Range Interpretation Comme nts HEPATITIS A IgM (test code = 93975) NON-REACTIVE HEPATITIS B CORE IgM (test c ode = 4644) NON-REACTIVE HEPATITIS B SURF AG (test co de = 2739) NON-REACTIVE HEPATITIS C ANTIBODY (test c ode = 4675) NON-REACTIVE INTERPRETATION HEPATITIS A: (test code = 2552) (NOTE) INTERPRETATION HEPATITIS B: (test code = 87249) (NOTE) INTERPRETATION HEPATITIS C: (test code = 71711) (NOTE) [id number] 00:00:00* Test Item Value Reference Range Interpretation Comme nts RPR RESULT (test code = 3501) NON-REACTIVE RPR TITER (test code = 3500) NOT INDIC. TITER HIV AB/AG COMBO RFLX [id number] 00:00:00* Test Item Value Reference Range Interpretation Comme nts HIV 1/2 4TH GEN, RFLX CONF ( test code = 3514) NON-REACTIVE GC AND CHLAMYDIA, AMPLIFIED, [id number] 00:00:00* Test Item Value Reference Range Interpretation Comme nts GONORRHEA, TMA (test code = 77143) NEGATIVE CHLAMYDIA, TMA (test code = 78509) NEGATIVE ACUTE HEPATITIS [id number] 00:00:00* Test Item Value Reference Range Interpretation Comme nts HEPATITIS A IgM (test code = 06962) NON-REACTIVE HEPATITIS B CORE IgM (test c ode = 4644) NON-REACTIVE HEPATITIS B SURF AG (test co de = 2739) NON-REACTIVE HEPATITIS C ANTIBODY (test c ode = 4675) NON-REACTIVE INTERPRETATION HEPATITIS A: (test code = 2552) (NOTE) INTERPRETATION HEPATITIS B: (test code = 26246) (NOTE) INTERPRETATION HEPATITIS C: (test code = 83232) (NOTE) HIV AB/AG COMBO RFLX [id number] 00:00:00* Test Item Value Reference Range Interpretation Comme nts HIV 1/2 4TH GEN, RFLX CONF ( test code = 3514) NON-REACTIVE Emiliano F [id number] 00:00:00* Test Item Value Reference Range Interpretation Comme nts RPR RESULT (test code = 3501) NON-REACTIVE RPR TITER (test code = 3500) NOT INDIC. TITER HIV AB/AG COMBO RFLX [id number] 00:00:00* Test Item Value Reference Range Interpretation Comme nts HIV 1/2 4TH GEN, RFLX CONF ( test code = 3514) NON-REACTIVE GC AND CHLAMYDIA, AMPLIFIED, [id number] 00:00:00* Test Item Value Reference Range Interpretation Comme nts GONORRHEA, TMA (test code = 64045) NEGATIVE CHLAMYDIA, TMA (test code = 93534) NEGATIVE ACUTE HEPATITIS [id number] 00:00:00* Test Item Value Reference Range Interpretation Comme nts HEPATITIS A IgM (test code = 51079) NON-REACTIVE HEPATITIS B CORE IgM (test c ode = 4644) NON-REACTIVE HEPATITIS B SURF AG (test co de = 2739) NON-REACTIVE HEPATITIS C ANTIBODY (test c ode = 4675) NON-REACTIVE INTERPRETATION HEPATITIS A: (test code = 2552) (NOTE) INTERPRETATION HEPATITIS B: (test code = 88160) (NOTE) INTERPRETATION HEPATITIS C: (test code = 14375) (NOTE) GC AND CHLAMYDIA, AMPLIFIED, [id number] 00:00:00* Test Item Value Reference Range Interpretation Comme nts GONORRHEA, TMA (test code = 67944) NEGATIVE CHLAMYDIA, TMA (test code = 61850) NEGATIVE Emiliano SahuACUTE HEPATITIS [id number] 00:00:00* Test Item Value Reference Range Interpretation Comme nts HEPATITIS A IgM (test code = 74786) NON-REACTIVE HEPATITIS B CORE IgM (test c ode = 4644) NON-REACTIVE HEPATITIS B SURF AG (test co de = 2739) NON-REACTIVE HEPATITIS C ANTIBODY (test c ode = 4675) NON-REACTIVE INTERPRETATION HEPATITIS A: (test code = 2552) (NOTE) INTERPRETATION HEPATITIS B: (test code = 39491) (NOTE) INTERPRETATION HEPATITIS C: (test code = 93676) (NOTE) Emiliano [id number] 00:00:00* Test Item Value Reference Range Interpretation Comme nts RPR RESULT (test code = 3501) NON-REACTIVE RPR TITER (test code = 3500) NOT INDIC. TITER Emiliano SahuHIV AB/AG COMBO RFLX [id number] 00:00:00* Test Item Value Reference Range Interpretation Comme nts HIV 1/2 4TH GEN, RFLX CONF ( test code = 3514) NON-REACTIVE Emiliano SahuGC AND CHLAMYDIA, AMPLIFIED, [id number] 00:00:00* Test Item Value Reference Range Interpretation Comme nts GONORRHEA, TMA (test code = 02423) NEGATIVE CHLAMYDIA, TMA (test code = 35698) NEGATIVE Emiliano SahuACUTE HEPATITIS [id number] 00:00:00* Test Item Value Reference Range Interpretation Comme nts HEPATITIS A IgM (test code = 04631) NON-REACTIVE HEPATITIS B CORE IgM (test c ode = 4644) NON-REACTIVE HEPATITIS B SURF AG (test co de = 2739) NON-REACTIVE HEPATITIS C ANTIBODY (test c ode = 4675) NON-REACTIVE INTERPRETATION HEPATITIS A: (test code = 2552) (NOTE) INTERPRETATION HEPATITIS B: (test code = 63507) (NOTE) INTERPRETATION HEPATITIS C: (test code = 79756) (NOTE) Emiliano [id number] 00:00:00* Test Item Value Reference Range Interpretation Comme nts RPR RESULT (test code = 3501) NON-REACTIVE RPR TITER (test code = 3500) NOT INDIC. TITER Emiliano SahuHIV AB/AG COMBO RFLX [id number] 00:00:00* Test Item Value Reference Range Interpretation Comme nts HIV 1/2 4TH GEN, RFLX CONF ( test code = 3514) NON-REACTIVE Emiliano Zafar AND CHLAMYDIA, AMPLIFIED, [id number] 00:00:00* Test Item Value Reference Range Interpretation Comme nts GONORRHEA, TMA (test code = 37656) NEGATIVE CHLAMYDIA, TMA (test code = 37050) NEGATIVE Emiliano SahuACUTE HEPATITIS [id number] 00:00:00* Test Item Value Reference Range Interpretation Comme nts HEPATITIS A IgM (test code = 87835) NON-REACTIVE HEPATITIS B CORE IgM (test c ode = 4644) NON-REACTIVE HEPATITIS B SURF AG (test co de = 2739) NON-REACTIVE HEPATITIS C ANTIBODY (test c ode = 4675) NON-REACTIVE INTERPRETATION HEPATITIS A: (test code = 2552) (NOTE) INTERPRETATION HEPATITIS B: (test code = 08785) (NOTE) INTERPRETATION HEPATITIS C: (test code = 46417) (NOTE) Emiliano [id number] 00:00:00* Test Item Value Reference Range Interpretation Comme nts RPR RESULT (test code = 3501) NON-REACTIVE RPR TITER (test code = 3500) NOT INDIC. TITER Emiliano Mercado AustinHIV AB/AG COMBO RFLX [id number] 00:00:00* Test Item Value Reference Range Interpretation Comme nts HIV 1/2 4TH GEN, RFLX CONF ( test code = 3514) NON-REACTIVE Emiliano SahuGC AND CHLAMYDIA, AMPLIFIED, [id number] 00:00:00* Test Item Value Reference Range Interpretation Comme nts GONORRHEA, TMA (test code = 07335) NEGATIVE CHLAMYDIA, TMA (test code = 53374) NEGATIVE Emiliano SahuCOMPREHENSIVE METABOLIC [id number] 00:00:00* Test Item Value Reference Range Interpretation Comme nts GLUCOSE (test code = 2217) 120 MG/DL BUN (test code = 2208) 9 MG/DL CREATININE (test code = 2214) 0.72 MG/DL eGFR AMER. (test cod e = 82808) 120 ML/MIN/1.73 eGFR NON- AMER. (test code = 93583) 103 ML/MIN/1.73 CALC BUN/CREAT (test code = 2235) 13 RATIO SODIUM (test code = 2231) 140 MEQ/L POTASSIUM (test code = 2228) 4.3 MEQ/L CHLORIDE (test code = 2215) 100 MEQ/L CARBON DIOXIDE (test code = 2206) 29 MEQ/L CALCIUM (test code = 2209) 10.6 MG/DL PROTEIN, TOTAL (test code = 2229) 8.2 G/DL ALBUMIN (test code = 2201) 4.3 G/DL CALC GLOBULIN (test code = 2240) 3.9 G/DL CALC A/G RATIO (test code = 2234) 1.1 RATIO BILIRUBIN, TOTAL (test code = 2207) 0.3 MG/DL ALKALINE PHOSPHATASE (test code = 2204) 93 U/L AST (test code = 2218) 20 U/L ALT (test code = 2219) 25 U/L Emiliano SahuCBC W/AUTO [id number] 00:00:00* Test Item Value Reference Range Interpretation Comme nts WBC (test code = 1001) 6.4 K/UL [...] COUNT (test code = 1015) 215 K/UL Emiliano Mercado AustinCOMPREHENSIVE METABOLIC [id number] 00:00:00* Test Item Value Reference Range Interpretation Comme nts GLUCOSE (test code = 2217) 120 MG/DL BUN (test code = 2208) 9 MG/DL CREATININE (test code = 2214) 0.72 MG/DL eGFR AMER. (test cod e = 49491) 120 ML/MIN/1.73 eGFR NON- AMER. (test code = 48670) 103 ML/MIN/1.73 CALC BUN/CREAT (test code = 2235) 13 RATIO SODIUM (test code = 2231) 140 MEQ/L POTASSIUM (test code = 2228) 4.3 MEQ/L CHLORIDE (test code = 2215) 100 MEQ/L CARBON DIOXIDE (test code = 2206) 29 MEQ/L CALCIUM (test code = 2209) 10.6 MG/DL PROTEIN, TOTAL (test code = 2229) 8.2 G/DL ALBUMIN (test code = 2201) 4.3 G/DL CALC GLOBULIN (test code = 2240) 3.9 G/DL CALC A/G RATIO (test code = 2234) 1.1 RATIO BILIRUBIN, TOTAL (test code = 2207) 0.3 MG/DL ALKALINE PHOSPHATASE (test code = 2204) 93 U/L AST (test code = 2218) 20 U/L ALT (test code = 2219) 25 U/L Emiliano Mercado AustinCOMPREHENSIVE METABOLIC [id number] 00:00:00* Test Item Value Reference Range Interpretation Comme nts GLUCOSE (test code = 2217) 120 MG/DL BUN (test code = 2208) 9 MG/DL CREATININE (test code = 2214) 0.72 MG/DL eGFR AMER. (test cod e = 35605) 120 ML/MIN/1.73 eGFR NON- AMER. (test code = 49968) 103 ML/MIN/1.73 CALC BUN/CREAT (test code = 2235) 13 RATIO SODIUM (test code = 2231) 140 MEQ/L POTASSIUM (test code = 2228) 4.3 MEQ/L CHLORIDE (test code = 2215) 100 MEQ/L CARBON DIOXIDE (test code = 2206) 29 MEQ/L CALCIUM (test code = 2209) 10.6 MG/DL PROTEIN, TOTAL (test code = 2229) 8.2 G/DL ALBUMIN (test code = 2201) 4.3 G/DL CALC GLOBULIN (test code = 2240) 3.9 G/DL CALC A/G RATIO (test code = 2234) 1.1 RATIO BILIRUBIN, TOTAL (test code = 2207) 0.3 MG/DL ALKALINE PHOSPHATASE (test code = 2204) 93 U/L AST (test code = 2218) 20 U/L ALT (test code = 2219) 25 U/L CBC W/AUTO [id number] 00:00:00* Test Item Value Reference Range Interpretation Comme nts WBC (test code = 1001) 6.4 K/UL [...] code = 1015) 215 K/UL COMPREHENSIVE METABOLIC [id number] 00:00:00* Test Item Value Reference Range Interpretation Comme nts GLUCOSE (test code = 2217) 120 MG/DL BUN (test code = 2208) 9 MG/DL CREATININE (test code = 2214) 0.72 MG/DL eGFR AMER. (test cod e = 06936) 120 ML/MIN/1.73 eGFR NON- AMER. (test code = 57429) 103 ML/MIN/1.73 CALC BUN/CREAT (test code = 2235) 13 RATIO SODIUM (test code = 2231) 140 MEQ/L POTASSIUM (test code = 2228) 4.3 MEQ/L CHLORIDE (test code = 2215) 100 MEQ/L CARBON DIOXIDE (test code = 2206) 29 MEQ/L CALCIUM (test code = 2209) 10.6 MG/DL PROTEIN, TOTAL (test code = 2229) 8.2 G/DL ALBUMIN (test code = 2201) 4.3 G/DL CALC GLOBULIN (test code = 2240) 3.9 G/DL CALC A/G RATIO (test code = 2234) 1.1 RATIO BILIRUBIN, TOTAL (test code = 2207) 0.3 MG/DL ALKALINE PHOSPHATASE (test code = 2204) 93 U/L AST (test code = 2218) 20 U/L ALT (test code = 2219) 25 U/L COMPREHENSIVE METABOLIC [id number] 00:00:00* Test Item Value Reference Range Interpretation Comme nts GLUCOSE (test code = 2217) 120 MG/DL BUN (test code = 2208) 9 MG/DL CREATININE (test code = 2214) 0.72 MG/DL eGFR AMER. (test cod e = 47234) 120 ML/MIN/1.73 eGFR NON- AMER. (test code = 64980) 103 ML/MIN/1.73 CALC BUN/CREAT (test code = 2235) 13 RATIO SODIUM (test code = 2231) 140 MEQ/L POTASSIUM (test code = 2228) 4.3 MEQ/L CHLORIDE (test code = 2215) 100 MEQ/L CARBON DIOXIDE (test code = 2206) 29 MEQ/L CALCIUM (test code = 2209) 10.6 MG/DL PROTEIN, TOTAL (test code = 2229) 8.2 G/DL ALBUMIN (test code = 2201) 4.3 G/DL CALC GLOBULIN (test code = 2240) 3.9 G/DL CALC A/G RATIO (test code = 2234) 1.1 RATIO BILIRUBIN, TOTAL (test code = 2207) 0.3 MG/DL ALKALINE PHOSPHATASE (test code = 2204) 93 U/L AST (test code = 2218) 20 U/L ALT (test code = 2219) 25 U/L CBC W/AUTO [id number] 00:00:00* Test Item Value Reference Range Interpretation Comme nts WBC (test code = 1001) 6.4 K/UL [...] code = 1015) 215 K/UL CBC W/AUTO [id number] 00:00:00* Test Item Value Reference Range Interpretation Comme nts WBC (test code = 1001) 6.4 K/UL [...] code = 1015) 215 K/UL COMPREHENSIVE METABOLIC [id number] 00:00:00* Test Item Value Reference Range Interpretation Comme nts GLUCOSE (test code = 2217) 120 MG/DL BUN (test code = 2208) 9 MG/DL CREATININE (test code = 2214) 0.72 MG/DL eGFR AMER. (test cod e = 65051) 120 ML/MIN/1.73 eGFR NON- AMER. (test code = 63197) 103 ML/MIN/1.73 CALC BUN/CREAT (test code = 2235) 13 RATIO SODIUM (test code = 2231) 140 MEQ/L POTASSIUM (test code = 2228) 4.3 MEQ/L CHLORIDE (test code = 2215) 100 MEQ/L CARBON DIOXIDE (test code = 2206) 29 MEQ/L CALCIUM (test code = 2209) 10.6 MG/DL PROTEIN, TOTAL (test code = 2229) 8.2 G/DL ALBUMIN (test code = 2201) 4.3 G/DL CALC GLOBULIN (test code = 2240) 3.9 G/DL CALC A/G RATIO (test code = 2234) 1.1 RATIO BILIRUBIN, TOTAL (test code = 2207) 0.3 MG/DL ALKALINE PHOSPHATASE (test code = 2204) 93 U/L AST (test code = 2218) 20 U/L ALT (test code = 2219) 25 U/L CBC W/AUTO [id number] 00:00:00* Test Item Value Reference Range Interpretation Comme nts WBC (test code = 1001) 6.4 K/UL [...] COUNT (test code = 1015) 215 K/UL Emiliano SahuCBC W/AUTO [id number] 00:00:00* Test Item Value Reference Range Interpretation Comme nts WBC (test code = 1001) 6.4 K/UL [...] code = 1015) 215 K/UL COMPREHENSIVE METABOLIC [id number] 00:00:00* Test Item Value Reference Range Interpretation Comme nts GLUCOSE (test code = 2217) 120 MG/DL BUN (test code = 2208) 9 MG/DL CREATININE (test code = 2214) 0.72 MG/DL eGFR AMER. (test cod e = 96473) 120 ML/MIN/1.73 eGFR NON- AMER. (test code = 36799) 103 ML/MIN/1.73 CALC BUN/CREAT (test code = 2235) 13 RATIO SODIUM (test code = 2231) 140 MEQ/L POTASSIUM (test code = 2228) 4.3 MEQ/L CHLORIDE (test code = 2215) 100 MEQ/L CARBON DIOXIDE (test code = 2206) 29 MEQ/L CALCIUM (test code = 2209) 10.6 MG/DL PROTEIN, TOTAL (test code = 2229) 8.2 G/DL ALBUMIN (test code = 2201) 4.3 G/DL CALC GLOBULIN (test code = 2240) 3.9 G/DL CALC A/G RATIO (test code = 2234) 1.1 RATIO BILIRUBIN, TOTAL (test code = 2207) 0.3 MG/DL ALKALINE PHOSPHATASE (test code = 2204) 93 U/L AST (test code = 2218) 20 U/L ALT (test code = 2219) 25 U/L CBC W/AUTO [id number] 00:00:00* Test Item Value Reference Range Interpretation Comme nts WBC (test code = 1001) 6.4 K/UL [...] code = 1015) 215 K/UL COMPREHENSIVE METABOLIC [id number] 00:00:00* Test Item Value Reference Range Interpretation Comme nts GLUCOSE (test code = 2217) 120 MG/DL BUN (test code = 2208) 9 MG/DL CREATININE (test code = 2214) 0.72 MG/DL eGFR AMER. (test cod e = 96083) 120 ML/MIN/1.73 eGFR NON- AMER. (test code = 63374) 103 ML/MIN/1.73 CALC BUN/CREAT (test code = 2235) 13 RATIO SODIUM (test code = 2231) 140 MEQ/L POTASSIUM (test code = 2228) 4.3 MEQ/L CHLORIDE (test code = 2215) 100 MEQ/L CARBON DIOXIDE (test code = 2206) 29 MEQ/L CALCIUM (test code = 2209) 10.6 MG/DL PROTEIN, TOTAL (test code = 2229) 8.2 G/DL ALBUMIN (test code = 2201) 4.3 G/DL CALC GLOBULIN (test code = 2240) 3.9 G/DL CALC A/G RATIO (test code = 2234) 1.1 RATIO BILIRUBIN, TOTAL (test code = 2207) 0.3 MG/DL ALKALINE PHOSPHATASE (test code = 2204) 93 U/L AST (test code = 2218) 20 U/L ALT (test code = 2219) 25 U/L CBC W/AUTO [id number] 00:00:00* Test Item Value Reference Range Interpretation Comme nts WBC (test code = 1001) 6.4 K/UL [...] code = 1015) 215 K/UL COMPREHENSIVE METABOLIC [id number] 00:00:00* Test Item Value Reference Range Interpretation Comme nts GLUCOSE (test code = 2217) 120 MG/DL BUN (test code = 2208) 9 MG/DL CREATININE (test code = 2214) 0.72 MG/DL eGFR AMER. (test cod e = 52792) 120 ML/MIN/1.73 eGFR NON- AMER. (test code = 75414) 103 ML/MIN/1.73 CALC BUN/CREAT (test code = 2235) 13 RATIO SODIUM (test code = 2231) 140 MEQ/L POTASSIUM (test code = 2228) 4.3 MEQ/L CHLORIDE (test code = 2215) 100 MEQ/L CARBON DIOXIDE (test code = 2206) 29 MEQ/L CALCIUM (test code = 2209) 10.6 MG/DL PROTEIN, TOTAL (test code = 2229) 8.2 G/DL ALBUMIN (test code = 2201) 4.3 G/DL CALC GLOBULIN (test code = 2240) 3.9 G/DL CALC A/G RATIO (test code = 2234) 1.1 RATIO BILIRUBIN, TOTAL (test code = 2207) 0.3 MG/DL ALKALINE PHOSPHATASE (test code = 2204) 93 U/L AST (test code = 2218) 20 U/L ALT (test code = 2219) 25 U/L Emiliano SahuKaleigh W/AUTO [id number] 00:00:00* Test Item Value Reference Range Interpretation Comme nts WBC (test code = 1001) 6.4 K/UL [...] COUNT (test code = 1015) 215 K/UL Emiliano Mercado Luis AlbertoCOMPREHENSIVE METABOLIC [id number] 00:00:00* Test Item Value Reference Range Interpretation Comme nts GLUCOSE (test code = 2217) 120 MG/DL BUN (test code = 2208) 9 MG/DL CREATININE (test code = 2214) 0.72 MG/DL eGFR AMER. (test cod e = 81370) 120 ML/MIN/1.73 eGFR NON- AMER. (test code = 70819) 103 ML/MIN/1.73 CALC BUN/CREAT (test code = 2235) 13 RATIO SODIUM (test code = 2231) 140 MEQ/L POTASSIUM (test code = 2228) 4.3 MEQ/L CHLORIDE (test code = 2215) 100 MEQ/L CARBON DIOXIDE (test code = 2206) 29 MEQ/L CALCIUM (test code = 2209) 10.6 MG/DL PROTEIN, TOTAL (test code = 2229) 8.2 G/DL ALBUMIN (test code = 2201) 4.3 G/DL CALC GLOBULIN (test code = 2240) 3.9 G/DL CALC A/G RATIO (test code = 2234) 1.1 RATIO BILIRUBIN, TOTAL (test code = 2207) 0.3 MG/DL ALKALINE PHOSPHATASE (test code = 2204) 93 U/L AST (test code = 2218) 20 U/L ALT (test code = 2219) 25 U/L Emiliano Mercado Luis AlbertoCBC W/AUTO [id number] 00:00:00* Test Item Value Reference Range Interpretation Comme nts WBC (test code = 1001) 6.4 K/UL [...] COUNT (test code = 1015) 215 K/UL Emiliano SahuCOMPREHENSIVE METABOLIC [id number] 00:00:00* Test Item Value Reference Range Interpretation Comme nts GLUCOSE (test code = 2217) 120 MG/DL BUN (test code = 2208) 9 MG/DL CREATININE (test code = 2214) 0.72 MG/DL eGFR AMER. (test cod e = 46718) 120 ML/MIN/1.73 eGFR NON- AMER. (test code = 10919) 103 ML/MIN/1.73 CALC BUN/CREAT (test code = 2235) 13 RATIO SODIUM (test code = 2231) 140 MEQ/L POTASSIUM (test code = 2228) 4.3 MEQ/L CHLORIDE (test code = 2215) 100 MEQ/L CARBON DIOXIDE (test code = 2206) 29 MEQ/L CALCIUM (test code = 2209) 10.6 MG/DL PROTEIN, TOTAL (test code = 2229) 8.2 G/DL ALBUMIN (test code = 2201) 4.3 G/DL CALC GLOBULIN (test code = 2240) 3.9 G/DL CALC A/G RATIO (test code = 2234) 1.1 RATIO BILIRUBIN, TOTAL (test code = 2207) 0.3 MG/DL ALKALINE PHOSPHATASE (test code = 2204) 93 U/L AST (test code = 2218) 20 U/L ALT (test code = 2219) 25 U/L Emiliano SahuCBC W/AUTO [id number] 00:00:00* Test Item Value Reference Range Interpretation Comme nts WBC (test code = 1001) 6.4 K/UL [...] COUNT (test code = 1015) 215 K/UL Emiliano Rogelio Luis AlbertoCOMPREHENSIVE METABOLIC [id number] 00:00:00* Test Item Value Reference Range Interpretation Comme nts GLUCOSE (test code = 2217) 97 MG/DL BUN (test code = 2208) 5 MG/DL CREATININE (test code = 2214) 0.79 MG/DL eGFR AMER. (test cod e = 14282) 107 ML/MIN/1.73 eGFR NON- AMER. (test code = 74453) 92 ML/MIN/1.73 CALC BUN/CREAT (test code = 2235) 6 RATIO SODIUM (test code = 2231) 138 MEQ/L POTASSIUM (test code = 2228) 4.1 MEQ/L CHLORIDE (test code = 2215) 96 MEQ/L CARBON DIOXIDE (test code = 2206) 29 MEQ/L CALCIUM (test code = 2209) 11.9 MG/DL PROTEIN, TOTAL (test code = 2229) 8.3 G/DL ALBUMIN (test code = 2201) 4.6 G/DL CALC GLOBULIN (test code = 2240) 3.7 G/DL CALC A/G RATIO (test code = 2234) 1.2 RATIO BILIRUBIN, TOTAL (test code = 2207) 0.4 MG/DL ALKALINE PHOSPHATASE (test code = 2204) 87 U/L AST (test code = 2218) 13 U/L ALT (test code = 2219) 14 U/L Emiliano Rogeilo AustinCOMPREHENSIVE METABOLIC [id number] 00:00:00* Test Item Value Reference Range Interpretation Comme nts GLUCOSE (test code = 2217) 97 MG/DL BUN (test code = 2208) 5 MG/DL CREATININE (test code = 2214) 0.79 MG/DL eGFR AMER. (test cod e = 41302) 107 ML/MIN/1.73 eGFR NON- AMER. (test code = 44516) 92 ML/MIN/1.73 CALC BUN/CREAT (test code = 2235) 6 RATIO SODIUM (test code = 2231) 138 MEQ/L POTASSIUM (test code = 2228) 4.1 MEQ/L CHLORIDE (test code = 2215) 96 MEQ/L CARBON DIOXIDE (test code = 2206) 29 MEQ/L CALCIUM (test code = 2209) 11.9 MG/DL PROTEIN, TOTAL (test code = 2229) 8.3 G/DL ALBUMIN (test code = 2201) 4.6 G/DL CALC GLOBULIN (test code = 2240) 3.7 G/DL CALC A/G RATIO (test code = 2234) 1.2 RATIO BILIRUBIN, TOTAL (test code = 2207) 0.4 MG/DL ALKALINE PHOSPHATASE (test code = 2204) 87 U/L AST (test code = 2218) 13 U/L ALT (test code = 2219) 14 U/L Emiliano F AustinCOMPREHENSIVE METABOLIC [id number] 00:00:00* Test Item Value Reference Range Interpretation Comme nts GLUCOSE (test code = 2217) 97 MG/DL BUN (test code = 2208) 5 MG/DL CREATININE (test code = 2214) 0.79 MG/DL eGFR AMER. (test cod e = 62326) 107 ML/MIN/1.73 eGFR NON- AMER. (test code = 94087) 92 ML/MIN/1.73 CALC BUN/CREAT (test code = 2235) 6 RATIO SODIUM (test code = 2231) 138 MEQ/L POTASSIUM (test code = 2228) 4.1 MEQ/L CHLORIDE (test code = 2215) 96 MEQ/L CARBON DIOXIDE (test code = 2206) 29 MEQ/L CALCIUM (test code = 2209) 11.9 MG/DL PROTEIN, TOTAL (test code = 2229) 8.3 G/DL ALBUMIN (test code = 2201) 4.6 G/DL CALC GLOBULIN (test code = 2240) 3.7 G/DL CALC A/G RATIO (test code = 2234) 1.2 RATIO BILIRUBIN, TOTAL (test code = 2207) 0.4 MG/DL ALKALINE PHOSPHATASE (test code = 2204) 87 U/L AST (test code = 2218) 13 U/L ALT (test code = 2219) 14 U/L COMPREHENSIVE METABOLIC [id number] 00:00:00* Test Item Value Reference Range Interpretation Comme nts GLUCOSE (test code = 2217) 97 MG/DL BUN (test code = 2208) 5 MG/DL CREATININE (test code = 2214) 0.79 MG/DL eGFR AMER. (test cod e = 60298) 107 ML/MIN/1.73 eGFR NON- AMER. (test code = 84469) 92 ML/MIN/1.73 CALC BUN/CREAT (test code = 2235) 6 RATIO SODIUM (test code = 2231) 138 MEQ/L POTASSIUM (test code = 2228) 4.1 MEQ/L CHLORIDE (test code = 2215) 96 MEQ/L CARBON DIOXIDE (test code = 2206) 29 MEQ/L CALCIUM (test code = 2209) 11.9 MG/DL PROTEIN, TOTAL (test code = 2229) 8.3 G/DL ALBUMIN (test code = 2201) 4.6 G/DL CALC GLOBULIN (test code = 2240) 3.7 G/DL CALC A/G RATIO (test code = 2234) 1.2 RATIO BILIRUBIN, TOTAL (test code = 2207) 0.4 MG/DL ALKALINE PHOSPHATASE (test code = 2204) 87 U/L AST (test code = 2218) 13 U/L ALT (test code = 2219) 14 U/L COMPREHENSIVE METABOLIC [id number] 00:00:00* Test Item Value Reference Range Interpretation Comme nts GLUCOSE (test code = 2217) 97 MG/DL BUN (test code = 2208) 5 MG/DL CREATININE (test code = 2214) 0.79 MG/DL eGFR AMER. (test cod e = 42549) 107 ML/MIN/1.73 eGFR NON- AMER. (test code = 04092) 92 ML/MIN/1.73 CALC BUN/CREAT (test code = 2235) 6 RATIO SODIUM (test code = 2231) 138 MEQ/L POTASSIUM (test code = 2228) 4.1 MEQ/L CHLORIDE (test code = 2215) 96 MEQ/L CARBON DIOXIDE (test code = 2206) 29 MEQ/L CALCIUM (test code = 2209) 11.9 MG/DL PROTEIN, TOTAL (test code = 2229) 8.3 G/DL ALBUMIN (test code = 2201) 4.6 G/DL CALC GLOBULIN (test code = 2240) 3.7 G/DL CALC A/G RATIO (test code = 2234) 1.2 RATIO BILIRUBIN, TOTAL (test code = 2207) 0.4 MG/DL ALKALINE PHOSPHATASE (test code = 2204) 87 U/L AST (test code = 2218) 13 U/L ALT (test code = 2219) 14 U/L COMPREHENSIVE METABOLIC [id number] 00:00:00* Test Item Value Reference Range Interpretation Comme nts GLUCOSE (test code = 2217) 97 MG/DL BUN (test code = 2208) 5 MG/DL CREATININE (test code = 2214) 0.79 MG/DL eGFR AMER. (test cod e = 41175) 107 ML/MIN/1.73 eGFR NON- AMER. (test code = 28651) 92 ML/MIN/1.73 CALC BUN/CREAT (test code = 2235) 6 RATIO SODIUM (test code = 2231) 138 MEQ/L POTASSIUM (test code = 2228) 4.1 MEQ/L CHLORIDE (test code = 2215) 96 MEQ/L CARBON DIOXIDE (test code = 2206) 29 MEQ/L CALCIUM (test code = 2209) 11.9 MG/DL PROTEIN, TOTAL (test code = 2229) 8.3 G/DL ALBUMIN (test code = 2201) 4.6 G/DL CALC GLOBULIN (test code = 2240) 3.7 G/DL CALC A/G RATIO (test code = 2234) 1.2 RATIO BILIRUBIN, TOTAL (test code = 2207) 0.4 MG/DL ALKALINE PHOSPHATASE (test code = 2204) 87 U/L AST (test code = 2218) 13 U/L ALT (test code = 2219) 14 U/L COMPREHENSIVE METABOLIC [id number] 00:00:00* Test Item Value Reference Range Interpretation Comme nts GLUCOSE (test code = 2217) 97 MG/DL BUN (test code = 2208) 5 MG/DL CREATININE (test code = 2214) 0.79 MG/DL eGFR AMER. (test cod e = 48411) 107 ML/MIN/1.73 eGFR NON- AMER. (test code = 75467) 92 ML/MIN/1.73 CALC BUN/CREAT (test code = 2235) 6 RATIO SODIUM (test code = 2231) 138 MEQ/L POTASSIUM (test code = 2228) 4.1 MEQ/L CHLORIDE (test code = 2215) 96 MEQ/L CARBON DIOXIDE (test code = 2206) 29 MEQ/L CALCIUM (test code = 2209) 11.9 MG/DL PROTEIN, TOTAL (test code = 2229) 8.3 G/DL ALBUMIN (test code = 2201) 4.6 G/DL CALC GLOBULIN (test code = 2240) 3.7 G/DL CALC A/G RATIO (test code = 2234) 1.2 RATIO BILIRUBIN, TOTAL (test code = 2207) 0.4 MG/DL ALKALINE PHOSPHATASE (test code = 2204) 87 U/L AST (test code = 2218) 13 U/L ALT (test code = 2219) 14 U/L COMPREHENSIVE METABOLIC [id number] 00:00:00* Test Item Value Reference Range Interpretation Comme nts GLUCOSE (test code = 2217) 97 MG/DL BUN (test code = 2208) 5 MG/DL CREATININE (test code = 2214) 0.79 MG/DL eGFR AMER. (test cod e = 26639) 107 ML/MIN/1.73 eGFR NON- AMER. (test code = 71683) 92 ML/MIN/1.73 CALC BUN/CREAT (test code = 2235) 6 RATIO SODIUM (test code = 2231) 138 MEQ/L POTASSIUM (test code = 2228) 4.1 MEQ/L CHLORIDE (test code = 2215) 96 MEQ/L CARBON DIOXIDE (test code = 2206) 29 MEQ/L CALCIUM (test code = 2209) 11.9 MG/DL PROTEIN, TOTAL (test code = 2229) 8.3 G/DL ALBUMIN (test code = 2201) 4.6 G/DL CALC GLOBULIN (test code = 2240) 3.7 G/DL CALC A/G RATIO (test code = 2234) 1.2 RATIO BILIRUBIN, TOTAL (test code = 2207) 0.4 MG/DL ALKALINE PHOSPHATASE (test code = 2204) 87 U/L AST (test code = 2218) 13 U/L ALT (test code = 2219) 14 U/L COMPREHENSIVE METABOLIC [id number] 00:00:00* Test Item Value Reference Range Interpretation Comme nts GLUCOSE (test code = 2217) 97 MG/DL BUN (test code = 2208) 5 MG/DL CREATININE (test code = 2214) 0.79 MG/DL eGFR AMER. (test cod e = 81380) 107 ML/MIN/1.73 eGFR NON- AMER. (test code = 46145) 92 ML/MIN/1.73 CALC BUN/CREAT (test code = 2235) 6 RATIO SODIUM (test code = 2231) 138 MEQ/L POTASSIUM (test code = 2228) 4.1 MEQ/L CHLORIDE (test code = 2215) 96 MEQ/L CARBON DIOXIDE (test code = 2206) 29 MEQ/L CALCIUM (test code = 2209) 11.9 MG/DL PROTEIN, TOTAL (test code = 2229) 8.3 G/DL ALBUMIN (test code = 2201) 4.6 G/DL CALC GLOBULIN (test code = 2240) 3.7 G/DL CALC A/G RATIO (test code = 2234) 1.2 RATIO BILIRUBIN, TOTAL (test code = 2207) 0.4 MG/DL ALKALINE PHOSPHATASE (test code = 2204) 87 U/L AST (test code = 2218) 13 U/L ALT (test code = 2219) 14 U/L Emiliano Mercado PrescottCOMPREHENSIVE METABOLIC [id number] 00:00:00* Test Item Value Reference Range Interpretation Comme nts GLUCOSE (test code = 2217) 97 MG/DL BUN (test code = 2208) 5 MG/DL CREATININE (test code = 2214) 0.79 MG/DL eGFR AMER. (test cod e = 06337) 107 ML/MIN/1.73 eGFR NON- AMER. (test code = 71801) 92 ML/MIN/1.73 CALC BUN/CREAT (test code = 2235) 6 RATIO SODIUM (test code = 2231) 138 MEQ/L POTASSIUM (test code = 2228) 4.1 MEQ/L CHLORIDE (test code = 2215) 96 MEQ/L CARBON DIOXIDE (test code = 2206) 29 MEQ/L CALCIUM (test code = 2209) 11.9 MG/DL PROTEIN, TOTAL (test code = 2229) 8.3 G/DL ALBUMIN (test code = 2201) 4.6 G/DL CALC GLOBULIN (test code = 2240) 3.7 G/DL CALC A/G RATIO (test code = 2234) 1.2 RATIO BILIRUBIN, TOTAL (test code = 2207) 0.4 MG/DL ALKALINE PHOSPHATASE (test code = 2204) 87 U/L AST (test code = 2218) 13 U/L ALT (test code = 2219) 14 U/L Emiliano SahuCOMPREHENSIVE METABOLIC [id number] 00:00:00* Test Item Value Reference Range Interpretation Comme nts GLUCOSE (test code = 2217) 97 MG/DL BUN (test code = 2208) 5 MG/DL CREATININE (test code = 2214) 0.79 MG/DL eGFR AMER. (test cod e = 50645) 107 ML/MIN/1.73 eGFR NON- AMER. (test code = 80217) 92 ML/MIN/1.73 CALC BUN/CREAT (test code = 2235) 6 RATIO SODIUM (test code = 2231) 138 MEQ/L POTASSIUM (test code = 2228) 4.1 MEQ/L CHLORIDE (test code = 2215) 96 MEQ/L CARBON DIOXIDE (test code = 2206) 29 MEQ/L CALCIUM (test code = 2209) 11.9 MG/DL PROTEIN, TOTAL (test code = 2229) 8.3 G/DL ALBUMIN (test code = 2201) 4.6 G/DL CALC GLOBULIN (test code = 2240) 3.7 G/DL CALC A/G RATIO (test code = 2234) 1.2 RATIO BILIRUBIN, TOTAL (test code = 2207) 0.4 MG/DL ALKALINE PHOSPHATASE (test code = 2204) 87 U/L AST (test code = 2218) 13 U/L ALT (test code = 2219) 14 U/L Emiliano SahuURINE AND [id number] 05:22:00* Test Item Value Reference Range Interpretation Comme nts UA Leuk Est (test code = UA Leuk Est) Negative (11/17/17 12:22 AM) UA Bacteria (test code = UA Bacteria) Occasional /HPF UA WBC (test code = UA WBC) 3 <=5 UA Mucus (test code = UA Mucus) Few /LPF UA Sq Epi (test code = UA Sq Epi) Occasional /LPF UA Nitrite (test code = UA Nitrite) Negative (11/17/17 12:22 AM) UA CaOx Judy (test code = UA CaOx Judy) Moderate /HPF UA Urobilinogen (test code = UA Urobilinogen) 4.0 0.1-1.0 UA Ketones (test code = UA Ketones) Negative mg/dL UA Blood (test code = UA Blood) Negative (11/17/17 12:22 AM) UA Bili (test code = UA Bili) Negative *NA*(11/17/17 12:22 AM) UA Color (test code = UA Color) Yellow *NA*(11/17/17 12:22 AM) UA Protein (test code = UA Protein) Negative mg/dL UA pH (test code = UA pH) 7.0 1 5.0-8.0 UA Spec Grav (test code = UA Spec Grav) 1.011 1 UA Turbidity (test code = UA Turbidity) Slight *ABN*(11/17/17 12:22 AM) UA Glucose (test code = UA Glucose) Negative mg/dL [facility] [id number] 04:23:00* Test Item Value Reference Range Interpretation Comme nts Total CK (test code = Total CK) 191 12-191 Troponin-I (test code = Troponin-I) no gt <=0.40 [facility] [id number] 04:23:00* Test Item Value Reference Range Interpretation Comme nts eGFR (test code = eGFR) 104 Bili Total (test code = Bili Total) 0.5 0.2-1.3 Total Protein (test code = T otal Protein) 8.9 6.4-8.4 ALT (test code = ALT) 24 <=65 Albumin Lvl (test code = Albumin Lvl) 3.7 3.5-5.0 AST (test code = AST) 27 <=37 Alk Phos (test code = Alk Phos) 86 39-136 Chloride Lvl (test code = Chloride Lvl) 103 95-109 CO2 (test code = CO2) 26 24-32 Calcium Lvl (test code = Calcium Lvl) 10.8 8.5-10.5 Potassium Lvl (test code = P otassium Lvl) 4.1 3.5-5.1 Sodium Lvl (test code = Sodium Lvl) 138 135-145 Glucose Lvl (test code = Glucose Lvl) 102 70-99 BUN (test code = BUN) 6 7-22 Creatinine Lvl (test code = Creatinine Lvl) 0.80 0.50-1.40 Globulin (test code = Globulin) 5.2 2.7-4.2 AGAP (test code = AGAP) 13.1 10.0-20.0 A/G Ratio (test code = A/G Ratio) 0.7 1 0.7-1.6 B/C Ratio (test code = B/C Ratio) 8 1 6-25 Phosphorus (test code = Phosphorus) 1.9 2.5-4.5 Magnesium Lvl (test code = M agnesium Lvl) 2.2 1.8-2.4 [facility] [id number] 04:23:00* Test Item Value Reference Range Interpretation Comme nts S Preg (test code = S Preg) Negative *NA*(11/16/17 11:23 PM) [facility] [id number] 04:23:00* Test Item Value Reference Range Interpretation Comme [facility] Hct (test code = Hct) 39.7 36.0-48.0 Hgb (test code = Hgb) 14.0 12.0-16.0 WBC (test code = WBC) 7.3 3.7-10.4 RBC (test code = RBC) 4.56 4.20-5.40 MCHC (test code = MCHC) 35.2 32.0-36.0 MCV (test code = MCV) 87.1 80.0-98.0 MPV (test code = MPV) 8.4 7.4-10.4 RDW (test code = RDW) 13.0 11.5-14.5 MCH (test code = MCH) 30.7 pg 27.0-31.0 Platelet (test code = Platelet) 263 133-450 D-Dimer (test code = D-Dimer) 0.27 Lymphocytes # (test code = Lymphocytes #) 2.3 1.0-5.5 Segs (test code = Segs) 58.7 45.0-75.0 Lymphocytes (test code = Lymphocytes) 31.5 20.0-40.0 Neutrophils # (test code = Neutrophils #) 4.3 1.5-8.1 Basophils (test code = Basophils) 0.6 <=1.0 Monocytes (test code = Monocytes) 6.7 2.0-12.0 Eosinophils (test code = Eosinophils) 2.5 <=4.0 Eosinophils # (test code = Eosinophils #) 0.2 <=0.5 Monocytes # (test code = Monocytes #) 0.5 <=0.8 [facility] [id number] 00:00:00* Test Item Value Reference Range Interpretation Comme nts FOLLICLE STIM HORMONE (test code = 2700) 37.9 IU/L LUTEINIZING HORMONE (test co de = 2776) 18.7 IU/L Emiliano Mercado [id number] 00:00:00* Test Item Value Reference Range Interpretation Comme nts ESTRADIOL (test code = 2505) 17.5 PG/ML Emiliano Mercado [facility] [id number] 00:00:00* Test Item Value Reference Range Interpretation Comme nts FOLLICLE STIM HORMONE (test code = 2700) 37.9 IU/L LUTEINIZING HORMONE (test co de = 2776) 18.7 IU/L [facility] + LH [id number] 00:00:00* Test Item Value Reference Range Interpretation Comme nts FOLLICLE STIM HORMONE (test code = 2700) 37.9 IU/L LUTEINIZING HORMONE (test co de = 2776) 18.7 IU/L Emiliano Mercado [id number] 00:00:00* Test Item Value Reference Range Interpretation Comme nts ESTRADIOL (test code = 2505) 17.5 PG/ML [facility] + LH [id number] 00:00:00* Test Item Value Reference Range Interpretation Comme nts FOLLICLE STIM HORMONE (test code = 2700) 37.9 IU/L LUTEINIZING HORMONE (test co de = 2776) 18.7 IU/L [facility] + LH [id number] 00:00:00* Test Item Value Reference Range Interpretation Comme nts FOLLICLE STIM HORMONE (test code = 2700) 37.9 IU/L LUTEINIZING HORMONE (test co de = 2776) 18.7 IU/L [id number] 00:00:00* Test Item Value Reference Range Interpretation Comme nts ESTRADIOL (test code = 2505) 17.5 PG/ML [id number] 00:00:00* Test Item Value Reference Range Interpretation Comme nts ESTRADIOL (test code = 2505) 17.5 PG/ML [id number] 00:00:00* Test Item Value Reference Range Interpretation Comme nts ESTRADIOL (test code = 2505) 17.5 PG/ML Emiliano Mercado [facility] + LH [id number] 00:00:00* Test Item Value Reference Range Interpretation Comme nts FOLLICLE STIM HORMONE (test code = 2700) 37.9 IU/L LUTEINIZING HORMONE (test co de = 2776) 18.7 IU/L [id number] 00:00:00* Test Item Value Reference Range Interpretation Comme nts ESTRADIOL (test code = 2505) 17.5 PG/ML FSH + LH [id number] 00:00:00* Test Item Value Reference Range Interpretation Comme nts FOLLICLE STIM HORMONE (test code = 2700) 37.9 IU/L LUTEINIZING HORMONE (test co de = 2776) 18.7 IU/L [id number] 00:00:00* Test Item Value Reference Range Interpretation Comme nts ESTRADIOL (test code = 2505) 17.5 PG/ML FSH + LH [id number] 00:00:00* Test Item Value Reference Range Interpretation Comme nts FOLLICLE STIM HORMONE (test code = 2700) 37.9 IU/L LUTEINIZING HORMONE (test co de = 2776) 18.7 IU/L [id number] 00:00:00* Test Item Value Reference Range Interpretation Comme nts ESTRADIOL (test code = 2505) 17.5 PG/ML FSH + LH [id number] 00:00:00* Test Item Value Reference Range Interpretation Comme nts FOLLICLE STIM HORMONE (test code = 2700) 37.9 IU/L LUTEINIZING HORMONE (test co de = 2776) 18.7 IU/L Emiliano Mercado [id number] 00:00:00* Test Item Value Reference Range Interpretation Comme nts ESTRADIOL (test code = 2505) 17.5 PG/ML Emiliano SahuFSH + LH [id number] 00:00:00* Test Item Value Reference Range Interpretation Comme nts FOLLICLE STIM HORMONE (test code = 2700) 37.9 IU/L LUTEINIZING HORMONE (test co de = 2776) 18.7 IU/L Emiliano Mercado [id number] 00:00:00* Test Item Value Reference Range Interpretation Comme nts ESTRADIOL (test code = 2505) 17.5 PG/ML Emiliano SahuFSH + LH [id number] 00:00:00* Test Item Value Reference Range Interpretation Comme nts FOLLICLE STIM HORMONE (test code = 2700) 37.9 IU/L LUTEINIZING HORMONE (test co de = 2776) 18.7 IU/L Emiliano Mercado [id number] 00:00:00* Test Item Value Reference Range Interpretation Comme nts ESTRADIOL (test code = 2505) 17.5 PG/ML Emiliano SahuDRUG [id number] 22:01:00* Test Item Value Reference Range Interpretation Comme nts UDS Note (test code = UDS Note) See Note *NA*(10/31/17 5:01 PM) U Phencyclidine Scr (test code = U Phencyclidine Scr) Negative *NA*(10/31/17 5:01 PM) U Opiate Scr (test code = U Opiate Scr) Negative *NA*(10/31/17 5:01 PM) U Cannab Scr (test code = U Cannab Scr) Negative *NA*(10/31/17 5:01 PM) U Indu Scr (test code = U Indu Scr) Negative *NA*(10/31/17 5:01 PM) U Amph Scr (test code = U Amph Scr) Negative *NA*(10/31/17 5:01 PM) U Cocaine Scr (test code = U Cocaine Scr) Negative *NA*(10/31/17 5:01 PM) U Benzodiaz Scr (test code = U Benzodiaz Scr) Negative *NA*(10/31/17 5:01 PM) [facility] [id number] 22:01:00* Test Item Value Reference Range Interpretation Comme nts UA CaOx Judy (test code = UA CaOx Judy) Moderate /HPF UA Bacteria (test code = UA Bacteria) Moderate /HPF UA Mucus (test code = UA Mucus) Few /LPF UA WBC (test code = UA WBC) 7 <=5 UA RBC (test code = UA RBC) 3 <=2 UA Sq Epi (test code = UA Sq Epi) Few /LPF UA Leuk Est (test code = UA Leuk Est) Negative (10/31/17 5:01 PM) UA Urobilinogen (test code = UA Urobilinogen) 4.0 0.1-1.0 UA Nitrite (test code = UA Nitrite) Negative (10/31/17 5:01 PM) UA Ketones (test code = UA Ketones) 20 mg/dL UA Glucose (test code = UA Glucose) Negative mg/dL UA Turbidity (test code = UA Turbidity) Slight *ABN*(10/31/17 5:01 PM) UA Color (test code = UA Color) Yellow *NA*(10/31/17 5:01 PM) UA Blood (test code = UA Blood) Negative (10/31/17 5:01 PM) UA Bili (test code = UA Bili) Negative *NA*(10/31/17 5:01 PM) UA Protein (test code = UA Protein) Negative mg/dL UA pH (test code = UA pH) 6.0 1 5.0-8.0 UA Spec Grav (test code = UA Spec Grav) 1.014 1 [facility] [id number] 22:01:00* Test Item Value Reference Range Interpretation Comme nts Culture: Urine (test code = Culture: Urine) 50,000 - 100,000 CFU/mL [facility] Center[facility]ARD[facility] [id number] 20:27:00* Test Item Value Reference Range Interpretation Comme nts Total CK (test code = Total CK) 110 12-191 Troponin-I (test code = Troponin-I) no gt <=0.40 [facility] [id number] 20:27:00* Test Item Value Reference Range Interpretation Comme nts AGAP (test code = AGAP) 12.4 10.0-20.0 eGFR (test code = eGFR) 84 Calcium Lvl (test code = Calcium Lvl) 10.3 8.5-10.5 Creatinine Lvl (test code = Creatinine Lvl) 0.96 0.50-1.40 Potassium Lvl (test code = P otassium Lvl) 3.4 3.5-5.1 BUN (test code = BUN) 9 7-22 Glucose Lvl (test code = Glucose Lvl) 96 70-99 Sodium Lvl (test code = Sodium Lvl) 139 135-145 Chloride Lvl (test code = Chloride Lvl) 102 95-109 CO2 (test code = CO2) 28 24-32 [id number] 20:27:00* Test Item Value Reference Range Interpretation Comme [facility] S Preg (test code = S Preg) Negative *NA*(10/31/17 3:27 PM) [id number] 20:27:00* Test Item Value Reference Range Interpretation Comme [facility] Lymphocytes (test code = Lymphocytes) 18.7 20.0-40.0 Monocytes (test code = Monocytes) 9.1 2.0-12.0 Neutrophils # (test code = Neutrophils #) 6.6 1.5-8.1 Lymphocytes # (test code = Lymphocytes #) 1.8 1.0-5.5 Segs (test code = Segs) 70.6 45.0-75.0 Eosinophils (test code = Eosinophils) 1.3 <=4.0 Basophils (test code = Basophils) 0.3 <=1.0 Monocytes # (test code = Monocytes #) 0.9 <=0.8 Eosinophils # (test code = Eosinophils #) 0.1 <=0.5 PT (test code = PT) 15.7 s 12.0-14.7 INR (test code = INR) 1.24 1 0.85-1.17 PTT (test code = PTT) 31.0 s 22.9-35.8 Hgb (test code = Hgb) 13.5 12.0-16.0 RBC (test code = RBC) 4.35 4.20-5.40 RDW (test code = RDW) 13.4 11.5-14.5 WBC (test code = WBC) 9.4 3.7-10.4 MCHC (test code = MCHC) 34.7 32.0-36.0 MCH (test code = MCH) 31.0 pg 27.0-31.0 Hct (test code = Hct) 38.8 36.0-48.0 MCV (test code = MCV) 89.4 80.0-98.0 MPV (test code = MPV) 8.2 7.4-10.4 Platelet (test code = Platelet) 238 133-450 [facility] [id number] 20:27:00* Test Item Value Reference Range Interpretation Comme nts Ethanol Lvl (test code = Ethanol Lvl) no gt Etoh (%) (test code = Etoh (%)) no gt [facility] TylerannCARDIAC [id number] 05:19:00* Test Item Value Reference Range Interpretation Comme nts Troponin-I (test code = Troponin-I) no gt <=0.40 [facility] TylerannCARDIAC [id number] 01:51:00* Test Item Value Reference Range Interpretation Comme nts Total CK (test code = Total CK) 121 12-191 Troponin-I (test code = Troponin-I) no gt <=0.40 CK MB (test code = CK MB) no gt 0.5-3.6 CK MB Index (test code = CK MB Index) no gt <=2.5 [facility] TylerPocket GemsCHEM [id number] 01:51:00* Test Item Value Reference Range Interpretation Comme nts Lipase Lvl (test code = Lipase Lvl) 217 73-393 Total Protein (test code = T otal Protein) 8.4 6.4-8.4 Albumin Lvl (test code = Albumin Lvl) 3.7 3.5-5.0 ALT (test code = ALT) 24 <=65 AST (test code = AST) 18 <=37 Bili Direct (test code = Bili Direct) 0.1 <=0.3 Alk Phos (test code = Alk Phos) 86 39-136 Bili Total (test code = Bili Total) 0.6 0.2-1.3 Bili Indirect (test code = B fadumo Indirect) 0.5 <=1.0 Globulin (test code = Globulin) 4.7 2.7-4.2 A/G Ratio (test code = A/G Ratio) 0.8 1 0.7-1.6 eGFR (test code = eGFR) 124 Creatinine Lvl (test code = Creatinine Lvl) 0.70 0.50-1.40 Sodium Lvl (test code = Sodium Lvl) 134 135-145 Potassium Lvl (test code = P otassium Lvl) 3.6 3.5-5.1 CO2 (test code = CO2) 25 24-32 Chloride Lvl (test code = Chloride Lvl) 103 95-109 Calcium Lvl (test code = Calcium Lvl) 10.3 8.5-10.5 Glucose Lvl (test code = Glucose Lvl) 93 70-99 BUN (test code = BUN) 8 7-22 AGAP (test code = AGAP) 9.6 10.0-20.0 [id number] 01:51:00* Test Item Value Reference Range Interpretation Comme nts Basophils # (test code = Basophils #) 0.0 <=0.2 Lymphocytes # (test code = Lymphocytes #) 2.4 1.0-5.5 Monocytes # (test code = Monocytes #) 0.6 <=0.8 Eosinophils # (test code = Eosinophils #) 0.1 <=0.5 Eosinophils (test code = Eosinophils) 2.1 <=4.0 Basophils (test code = Basophils) 0.4 <=1.0 Neutrophils # (test code = Neutrophils #) 3.7 1.5-8.1 Lymphocytes (test code = Lymphocytes) 35.4 20.0-40.0 Monocytes (test code = Monocytes) 8.2 2.0-12.0 Segs (test code = Segs) 53.9 45.0-75.0 MPV (test code = MPV) 7.8 7.4-10.4 Platelet (test code = Platelet) 251 133-450 RDW (test code = RDW) 13.4 11.5-14.5 MCHC (test code = MCHC) 34.1 32.0-36.0 MCH (test code = MCH) 30.7 pg 27.0-31.0 MCV (test code = MCV) 90.0 80.0-98.0 Hct (test code = Hct) 40.4 36.0-48.0 Hgb (test code = Hgb) 13.8 12.0-16.0 RBC (test code = RBC) 4.49 4.20-5.40 WBC (test code = WBC) 6.9 3.7-10.4 [facility] METABOLIC [id number] 00:00:00* Test Item Value Reference Range Interpretation Comme nts GLUCOSE (test code = 2217) 89 MG/DL BUN (test code = 2208) 7 MG/DL CREATININE (test code = 2214) 0.70 MG/DL eGFR AMER. (test cod e = 95077) 124 ML/MIN/1.73 eGFR NON- AMER. (test code = 58419) 107 ML/MIN/1.73 SODIUM (test code = 2231) 140 MEQ/L POTASSIUM (test code = 2228) 4.3 MEQ/L CHLORIDE (test code = 2215) 99 MEQ/L CARBON DIOXIDE (test code = 2206) 26 MEQ/L CALCIUM (test code = 2209) 11.1 MG/DL Emiliano [id number] 00:00:00* Test Item Value Reference Range Interpretation Comme nts TSH, THIRD GENERATION (test code = 2821) 1.020 UIU/ML Emiliano SahuCBC W/AUTO [id number] 00:00:00* Test Item Value Reference Range Interpretation Comme nts WBC (test code = 1001) 8.0 K/UL [...] COUNT (test code = 1015) 247 K/UL Emiliano DraperOGLOBIN [id number] 00:00:00* Test Item Value Reference Range Interpretation Comme gregg HEMOGLOBIN A1c (test code = 12290) 5.3 % Emiliano SahuLIPID [id number] 00:00:00* Test Item Value Reference Range Interpretation Comme nts CHOLESTEROL (test code = 2210) 226 MG/DL TRIGLYCERIDES (test code = 2232) 169 MG/DL HDL CHOLESTEROL (test code = 2220) 60 MG/DL CALC LDL CHOL (test code = 2237) 132 MG/DL RISK RATIO LDL/HDL (test cod e = 2238) 2.20 RATIO Emiliano SahuBASIC METABOLIC [id number] 00:00:00* Test Item Value Reference Range Interpretation Comme nts GLUCOSE (test code = 2217) 89 MG/DL BUN (test code = 2208) 7 MG/DL CREATININE (test code = 2214) 0.70 MG/DL eGFR AMER. (test cod e = 36359) 124 ML/MIN/1.73 eGFR NON- AMER. (test code = 84700) 107 ML/MIN/1.73 SODIUM (test code = 2231) 140 MEQ/L POTASSIUM (test code = 2228) 4.3 MEQ/L CHLORIDE (test code = 2215) 99 MEQ/L CARBON DIOXIDE (test code = 2206) 26 MEQ/L CALCIUM (test code = 2209) 11.1 MG/DL Emiliano [id number] 00:00:00* Test Item Value Reference Range Interpretation Comme gregg TSH, THIRD GENERATION (test code = 2821) 1.020 UIU/ML Emiliano SahuCBC W/AUTO [id number] 00:00:00* Test Item Value Reference Range Interpretation Comme gregg WBC (test code = 1001) 8.0 K/UL [...] COUNT (test code = 1015) 247 K/UL Emiliano Mercado [facility] W/AUTO [id number] 00:00:00* Test Item Value Reference Range Interpretation Comme nts WBC (test code = 1001) 8.0 K/UL [...] (test code = 1015) 247 K/UL HEMOGLOBIN [id number] 00:00:00* Test Item Value Reference Range Interpretation Comme nts HEMOGLOBIN A1c (test code = 49176) 5.3 % LIPID [id number] 00:00:00* Test Item Value Reference Range Interpretation Comme nts CHOLESTEROL (test code = 2210) 226 MG/DL TRIGLYCERIDES (test code = 2232) 169 MG/DL HDL CHOLESTEROL (test code = 2220) 60 MG/DL CALC LDL CHOL (test code = 2237) 132 MG/DL RISK RATIO LDL/HDL (test cod e = 2238) 2.20 RATIO BASIC METABOLIC [id number] 00:00:00* Test Item Value Reference Range Interpretation Comme nts GLUCOSE (test code = 2217) 89 MG/DL BUN (test code = 2208) 7 MG/DL CREATININE (test code = 2214) 0.70 MG/DL eGFR AMER. (test cod e = 29828) 124 ML/MIN/1.73 eGFR NON- AMER. (test code = 08581) 107 ML/MIN/1.73 SODIUM (test code = 2231) 140 MEQ/L POTASSIUM (test code = 2228) 4.3 MEQ/L CHLORIDE (test code = 2215) 99 MEQ/L CARBON DIOXIDE (test code = 2206) 26 MEQ/L CALCIUM (test code = 2209) 11.1 MG/DL CBC W/AUTO [id number] 00:00:00* Test Item Value Reference Range Interpretation Comme nts WBC (test code = 1001) 8.0 K/UL [...] COUNT (test code = 1015) 247 K/UL [id number] 00:00:00* Test Item Value Reference Range Interpretation Comme nts TSH, THIRD GENERATION (test code = 2821) 1.020 UIU/ML CBC W/AUTO [id number] 00:00:00* Test Item Value Reference Range Interpretation Comme nts WBC (test code = 1001) 8.0 K/UL [...] (test code = 1015) 247 K/UL HEMOGLOBIN [id number] 00:00:00* Test Item Value Reference Range Interpretation Comme nts HEMOGLOBIN A1c (test code = 03603) 5.3 % LIPID [id number] 00:00:00* Test Item Value Reference Range Interpretation Comme nts CHOLESTEROL (test code = 2210) 226 MG/DL TRIGLYCERIDES (test code = 2232) 169 MG/DL HDL CHOLESTEROL (test code = 2220) 60 MG/DL CALC LDL CHOL (test code = 2237) 132 MG/DL RISK RATIO LDL/HDL (test cod e = 2238) 2.20 RATIO BASIC METABOLIC [id number] 00:00:00* Test Item Value Reference Range Interpretation Comme nts GLUCOSE (test code = 2217) 89 MG/DL BUN (test code = 2208) 7 MG/DL CREATININE (test code = 2214) 0.70 MG/DL eGFR AMER. (test cod e = 22817) 124 ML/MIN/1.73 eGFR NON- AMER. (test code = 90001) 107 ML/MIN/1.73 SODIUM (test code = 2231) 140 MEQ/L POTASSIUM (test code = 2228) 4.3 MEQ/L CHLORIDE (test code = 2215) 99 MEQ/L CARBON DIOXIDE (test code = 2206) 26 MEQ/L CALCIUM (test code = 2209) 11.1 MG/DL [id number] 00:00:00* Test Item Value Reference Range Interpretation Comme nts TSH, THIRD GENERATION (test code = 2821) 1.020 UIU/ML HEMOGLOBIN [id number] 00:00:00* Test Item Value Reference Range Interpretation Comme nts HEMOGLOBIN A1c (test code = 85665) 5.3 % CBC W/AUTO [id number] 00:00:00* Test Item Value Reference Range Interpretation Comme nts WBC (test code = 1001) 8.0 K/UL [...] (test code = 1015) 247 K/UL HEMOGLOBIN [id number] 00:00:00* Test Item Value Reference Range Interpretation Comme nts HEMOGLOBIN A1c (test code = 96465) 5.3 % LIPID [id number] 00:00:00* Test Item Value Reference Range Interpretation Comme nts CHOLESTEROL (test code = 2210) 226 MG/DL TRIGLYCERIDES (test code = 2232) 169 MG/DL HDL CHOLESTEROL (test code = 2220) 60 MG/DL CALC LDL CHOL (test code = 2237) 132 MG/DL RISK RATIO LDL/HDL (test cod e = 2238) 2.20 RATIO LIPID [id number] 00:00:00* Test Item Value Reference Range Interpretation Comme nts CHOLESTEROL (test code = 2210) 226 MG/DL TRIGLYCERIDES (test code = 2232) 169 MG/DL HDL CHOLESTEROL (test code = 2220) 60 MG/DL CALC LDL CHOL (test code = 2237) 132 MG/DL RISK RATIO LDL/HDL (test cod e = 2238) 2.20 RATIO BASIC METABOLIC [id number] 00:00:00* Test Item Value Reference Range Interpretation Comme nts GLUCOSE (test code = 2217) 89 MG/DL BUN (test code = 2208) 7 MG/DL CREATININE (test code = 2214) 0.70 MG/DL eGFR AMER. (test cod e = 74357) 124 ML/MIN/1.73 eGFR NON- AMER. (test code = 66536) 107 ML/MIN/1.73 SODIUM (test code = 2231) 140 MEQ/L POTASSIUM (test code = 2228) 4.3 MEQ/L CHLORIDE (test code = 2215) 99 MEQ/L CARBON DIOXIDE (test code = 2206) 26 MEQ/L CALCIUM (test code = 2209) 11.1 MG/DL [id number] 00:00:00* Test Item Value Reference Range Interpretation Comme nts TSH, THIRD GENERATION (test code = 2821) 1.020 UIU/ML BASIC METABOLIC [id number] 00:00:00* Test Item Value Reference Range Interpretation Comme nts GLUCOSE (test code = 2217) 89 MG/DL BUN (test code = 2208) 7 MG/DL CREATININE (test code = 2214) 0.70 MG/DL eGFR AMER. (test cod e = 58226) 124 ML/MIN/1.73 eGFR NON- AMER. (test code = 29649) 107 ML/MIN/1.73 SODIUM (test code = 2231) 140 MEQ/L POTASSIUM (test code = 2228) 4.3 MEQ/L CHLORIDE (test code = 2215) 99 MEQ/L CARBON DIOXIDE (test code = 2206) 26 MEQ/L CALCIUM (test code = 2209) 11.1 MG/DL [id number] 00:00:00* Test Item Value Reference Range Interpretation Comme nts TSH, THIRD GENERATION (test code = 2821) 1.020 UIU/ML CBC W/AUTO [id number] 00:00:00* Test Item Value Reference Range Interpretation Comme nts WBC (test code = 1001) 8.0 K/UL [...] (test code = 1015) 247 K/UL HEMOGLOBIN [id number] 00:00:00* Test Item Value Reference Range Interpretation Comme nts HEMOGLOBIN A1c (test code = 98302) 5.3 % HEMOGLOBIN [id number] 00:00:00* Test Item Value Reference Range Interpretation Comme nts HEMOGLOBIN A1c (test code = 42610) 5.3 % Emiliano F AustinLIPID [id number] 00:00:00* Test Item Value Reference Range Interpretation Comme nts CHOLESTEROL (test code = 2210) 226 MG/DL TRIGLYCERIDES (test code = 2232) 169 MG/DL HDL CHOLESTEROL (test code = 2220) 60 MG/DL CALC LDL CHOL (test code = 2237) 132 MG/DL RISK RATIO LDL/HDL (test cod e = 2238) 2.20 RATIO BASIC METABOLIC [id number] 00:00:00* Test Item Value Reference Range Interpretation Comme nts GLUCOSE (test code = 2217) 89 MG/DL BUN (test code = 2208) 7 MG/DL CREATININE (test code = 2214) 0.70 MG/DL eGFR AMER. (test cod e = 23312) 124 ML/MIN/1.73 eGFR NON- AMER. (test code = 51610) 107 ML/MIN/1.73 SODIUM (test code = 2231) 140 MEQ/L POTASSIUM (test code = 2228) 4.3 MEQ/L CHLORIDE (test code = 2215) 99 MEQ/L CARBON DIOXIDE (test code = 2206) 26 MEQ/L CALCIUM (test code = 2209) 11.1 MG/DL [id number] 00:00:00* Test Item Value Reference Range Interpretation Comme nts TSH, THIRD GENERATION (test code = 2821) 1.020 UIU/ML CBC W/AUTO [id number] 00:00:00* Test Item Value Reference Range Interpretation Comme nts WBC (test code = 1001) 8.0 K/UL [...] (test code = 1015) 247 K/UL HEMOGLOBIN [id number] 00:00:00* Test Item Value Reference Range Interpretation Comme nts HEMOGLOBIN A1c (test code = 17056) 5.3 % LIPID [id number] 00:00:00* Test Item Value Reference Range Interpretation Comme nts CHOLESTEROL (test code = 2210) 226 MG/DL TRIGLYCERIDES (test code = 2232) 169 MG/DL HDL CHOLESTEROL (test code = 2220) 60 MG/DL CALC LDL CHOL (test code = 2237) 132 MG/DL RISK RATIO LDL/HDL (test cod e = 2238) 2.20 RATIO BASIC METABOLIC [id number] 00:00:00* Test Item Value Reference Range Interpretation Comme nts GLUCOSE (test code = 2217) 89 MG/DL BUN (test code = 2208) 7 MG/DL CREATININE (test code = 2214) 0.70 MG/DL eGFR AMER. (test cod e = 92841) 124 ML/MIN/1.73 eGFR NON- AMER. (test code = 56092) 107 ML/MIN/1.73 SODIUM (test code = 2231) 140 MEQ/L POTASSIUM (test code = 2228) 4.3 MEQ/L CHLORIDE (test code = 2215) 99 MEQ/L CARBON DIOXIDE (test code = 2206) 26 MEQ/L CALCIUM (test code = 2209) 11.1 MG/DL [id number] 00:00:00* Test Item Value Reference Range Interpretation Comme nts TSH, THIRD GENERATION (test code = 2821) 1.020 UIU/ML LIPID [id number] 00:00:00* Test Item Value Reference Range Interpretation Comme nts CHOLESTEROL (test code = 2210) 226 MG/DL TRIGLYCERIDES (test code = 2232) 169 MG/DL HDL CHOLESTEROL (test code = 2220) 60 MG/DL CALC LDL CHOL (test code = 2237) 132 MG/DL RISK RATIO LDL/HDL (test cod e = 2238) 2.20 RATIO Emiliano F AustinBASIC METABOLIC [id number] 00:00:00* Test Item Value Reference Range Interpretation Comme nts GLUCOSE (test code = 2217) 89 MG/DL BUN (test code = 2208) 7 MG/DL CREATININE (test code = 2214) 0.70 MG/DL eGFR AMER. (test cod e = 26032) 124 ML/MIN/1.73 eGFR NON- AMER. (test code = 87139) 107 ML/MIN/1.73 SODIUM (test code = 2231) 140 MEQ/L POTASSIUM (test code = 2228) 4.3 MEQ/L CHLORIDE (test code = 2215) 99 MEQ/L CARBON DIOXIDE (test code = 2206) 26 MEQ/L CALCIUM (test code = 2209) 11.1 MG/DL Emiliano [id number] 00:00:00* Test Item Value Reference Range Interpretation Comme nts TSH, THIRD GENERATION (test code = 2821) 1.020 UIU/ML Emiliano SahuCBC W/AUTO [id number] 00:00:00* Test Item Value Reference Range Interpretation Comme nts WBC (test code = 1001) 8.0 K/UL [...] COUNT (test code = 1015) 247 K/UL Emiliano SahuHEMOGLOBIN [id number] 00:00:00* Test Item Value Reference Range Interpretation Comme nts HEMOGLOBIN A1c (test code = 17736) 5.3 % Emiliano SahuLIPID [id number] 00:00:00* Test Item Value Reference Range Interpretation Comme nts CHOLESTEROL (test code = 2210) 226 MG/DL TRIGLYCERIDES (test code = 2232) 169 MG/DL HDL CHOLESTEROL (test code = 2220) 60 MG/DL CALC LDL CHOL (test code = 2237) 132 MG/DL RISK RATIO LDL/HDL (test cod e = 2238) 2.20 RATIO Emiliano SahuBASIC METABOLIC [id number] 00:00:00* Test Item Value Reference Range Interpretation Comme nts GLUCOSE (test code = 2217) 89 MG/DL BUN (test code = 2208) 7 MG/DL CREATININE (test code = 2214) 0.70 MG/DL eGFR AMER. (test cod e = 94659) 124 ML/MIN/1.73 eGFR NON- AMER. (test code = 14345) 107 ML/MIN/1.73 SODIUM (test code = 2231) 140 MEQ/L POTASSIUM (test code = 2228) 4.3 MEQ/L CHLORIDE (test code = 2215) 99 MEQ/L CARBON DIOXIDE (test code = 2206) 26 MEQ/L CALCIUM (test code = 2209) 11.1 MG/DL Emiliano [id number] 00:00:00* Test Item Value Reference Range Interpretation Comme nts TSH, THIRD GENERATION (test code = 2821) 1.020 UIU/ML Emiliano SahuCBC W/AUTO [id number] 00:00:00* Test Item Value Reference Range Interpretation Comme nts WBC (test code = 1001) 8.0 K/UL [...] COUNT (test code = 1015) 247 K/UL Emiliano SahuHEMOGLOBIN [id number] 00:00:00* Test Item Value Reference Range Interpretation Comme gregg HEMOGLOBIN A1c (test code = 83650) 5.3 % Emiliano SahuLIPID [id number] 00:00:00* Test Item Value Reference Range Interpretation Comme nts CHOLESTEROL (test code = 2210) 226 MG/DL TRIGLYCERIDES (test code = 2232) 169 MG/DL HDL CHOLESTEROL (test code = 2220) 60 MG/DL CALC LDL CHOL (test code = 2237) 132 MG/DL RISK RATIO LDL/HDL (test cod e = 2238) 2.20 RATIO [facility] [id number] 00:00:00* Test Item Value Reference Range Interpretation Comme nts GLUCOSE (test code = 2217) 89 MG/DL BUN (test code = 2208) 7 MG/DL CREATININE (test code = 2214) 0.70 MG/DL eGFR AMER. (test cod e = 97751) 124 ML/MIN/1.73 eGFR NON- AMER. (test code = 26525) 107 ML/MIN/1.73 SODIUM (test code = 2231) 140 MEQ/L POTASSIUM (test code = 2228) 4.3 MEQ/L CHLORIDE (test code = 2215) 99 MEQ/L CARBON DIOXIDE (test code = 2206) 26 MEQ/L CALCIUM (test code = 2209) 11.1 MG/DL Emiliano [id number] 00:00:00* Test Item Value Reference Range Interpretation Comme [facility] TSH, THIRD GENERATION (test code = 2821) 1.020 UIU/ML Emiliano SahuCBC W/AUTO [id number] 00:00:00* Test Item Value Reference Range Interpretation Comme nts WBC (test code = 1001) 8.0 K/UL [...] COUNT (test code = 1015) 247 K/UL Emiliano SahuHEMOGLOBIN [id number] 00:00:00* Test Item Value Reference Range Interpretation Comme nts HEMOGLOBIN A1c (test code = 14877) 5.3 % Emiliano SahuLIPID [id number] 00:00:00* Test Item Value Reference Range Interpretation Comme nts CHOLESTEROL (test code = 2210) 226 MG/DL TRIGLYCERIDES (test code = 2232) 169 MG/DL HDL CHOLESTEROL (test code = 2220) 60 MG/DL CALC LDL CHOL (test code = 2237) 132 MG/DL RISK RATIO LDL/HDL (test cod e = 2238) 2.20 RATIO Emiliano SahuCHEM [id number] 15:16:00* Test Item Value Reference Range Interpretation Comme nts eGFR (test code = eGFR) 101 Bili Total (test code = Bili Total) 0.4 0.2-1.3 Alk Phos (test code = Alk Phos) 83 39-136 AST (test code = AST) 14 <=37 ALT (test code = ALT) 22 <=65 Glucose Lvl (test code = Glucose Lvl) 125 70-99 A/G Ratio (test code = A/G Ratio) 0.8 1 0.7-1.6 Globulin (test code = Globulin) 4.5 2.7-4.2 B/C Ratio (test code = B/C Ratio) 8 1 6-25 Calcium Lvl (test code = Calcium Lvl) 10.2 8.5-10.5 Total Protein (test code = T otal Protein) 7.9 6.4-8.4 Albumin Lvl (test code = Albumin Lvl) 3.4 3.5-5.0 Chloride Lvl (test code = Chloride Lvl) 102 95-109 CO2 (test code = CO2) 30 24-32 AGAP (test code = AGAP) 10.8 10.0-20.0 BUN (test code = BUN) 7 7-22 Sodium Lvl (test code = Sodium Lvl) 139 135-145 Potassium Lvl (test code = P otassium Lvl) 3.8 3.5-5.1 Creatinine Lvl (test code = Creatinine Lvl) 0.83 0.50-1.40 Lipase Lvl (test code = Lipase Lvl) 204 73-393 [id number] 15:16:00* Test Item Value Reference Range Interpretation Comme nts S Preg (test code = S Preg) Negative *NA*(10/13/17 10:16 AM) [id number] 15:16:00* Test Item Value Reference Range Interpretation Comme nts Monocytes (test code = Monocytes) 7.5 2.0-12.0 Segs (test code = Segs) 64.6 45.0-75.0 Lymphocytes (test code = Lymphocytes) 26.4 20.0-40.0 Neutrophils # (test code = Neutrophils #) 4.8 1.5-8.1 Basophils (test code = Basophils) 0.4 <=1.0 Eosinophils (test code = Eosinophils) 1.1 <=4.0 Monocytes # (test code = Monocytes #) 0.6 <=0.8 Lymphocytes # (test code = Lymphocytes #) 2.0 1.0-5.5 Eosinophils # (test code = Eosinophils #) 0.1 <=0.5 RDW (test code = RDW) 13.4 11.5-14.5 MCH (test code = MCH) 30.7 pg 27.0-31.0 Platelet (test code = Platelet) 204 133-450 MCHC (test code = MCHC) 34.7 32.0-36.0 MCV (test code = MCV) 88.5 80.0-98.0 MPV (test code = MPV) 8.2 7.4-10.4 Hct (test code = Hct) 38.7 36.0-48.0 Hgb (test code = Hgb) 13.4 12.0-16.0 RBC (test code = RBC) 4.37 4.20-5.40 WBC (test code = WBC) 7.4 3.7-10.4 [facility] [id number] 15:16:00* Test Item Value Reference Range Interpretation Comme nts UA Urobilinogen (test code = UA Urobilinogen) <=1.0 mg/dL 0.1-1.0 UA Mucus (test code = UA Mucus) Few /LPF UA CaOx Judy (test code = UA CaOx Judy) Many /HPF UA RBC (test code = UA RBC) 3 <=2 UA WBC (test code = UA WBC) 2 <=5 UA Leuk Est (test code = UA Leuk Est) Negative (10/13/17 10:16 AM) UA Sq Epi (test code = UA Sq Epi) Few /LPF UA Bacteria (test code = UA Bacteria) Occasional /HPF UA Blood (test code = UA Blood) Negative (10/13/17 10:16 AM) UA Nitrite (test code = UA Nitrite) Negative (10/13/17 10:16 AM) UA pH (test code = UA pH) 6.0 1 5.0-8.0 UA Spec Grav (test code = UA Spec Grav) 1.008 1 UA Ketones (test code = UA Ketones) Negative mg/dL UA Bili (test code = UA Bili) Negative *NA*(10/13/17 10:16 AM) UA Glucose (test code = UA Glucose) Negative mg/dL UA Color (test code = UA Color) Yellow *NA*(10/13/17 10:16 AM) UA Turbidity (test code = UA Turbidity) Slight *ABN*(10/13/17 10:16 AM) UA Protein (test code = UA Protein) Negative mg/dL [facility] C[id number] 13:00:00* Test Item Value Reference Range Interpretation Comme nts S Preg (test code = S Preg) Negative *NA*(05/01/16 7:00 AM) [facility] BANK [id number] 16:31:00* Test Item Value Reference Range Interpretation Comme nts ABO/Rh (test code = ABO/Rh) B POS Antibody Scrn (test code = Antibody Scrn) Negative (04/24/16 10:31 AM) [facility] [id number] 16:30:00* Test Item Value Reference Range Interpretation Comme nts Basophils # (test code = Basophils #) 0.0 <=0.2 Monocytes # (test code = Monocytes #) 0.4 <=0.8 Eosinophils # (test code = Eosinophils #) 0.1 <=0.5 Segs-Bands # (test code = Se gs-Bands #) 3.3 1.5-8.1 Lymphocytes # (test code = Lymphocytes #) 1.6 1.0-5.5 Segs (test code = Segs) 60.9 45.0-75.0 Basophils (test code = Basophils) 0.5 <=1.0 Eosinophils (test code = Eosinophils) 1.8 <=4.0 Lymphocytes (test code = Lymphocytes) 29.1 20.0-40.0 Monocytes (test code = Monocytes) 7.7 2.0-12.0 MCH (test code = MCH) 28.5 pg 27.0-31.0 MCV (test code = MCV) 87.6 80.0-98.0 Hct (test code = Hct) 37.5 36.0-48.0 MCHC (test code = MCHC) 32.6 32.0-36.0 Platelet (test code = Platelet) 263 133-450 RDW (test code = RDW) 15.8 11.5-14.5 MPV (test code = MPV) 8.6 7.4-10.4 WBC (test code = WBC) 5.4 3.7-10.4 Hgb (test code = Hgb) 12.2 12.0-16.0 RBC (test code = RBC) 4.29 4.20-5.[address] [facility] AND [id number] 23:03:00* Test Item Value Reference Range Interpretation Comme nts UA Color (test code = UA Color) Yellow *NA*(03/17/16 5:03 PM) UA Turbidity (test code = UA Turbidity) Cloudy *ABN*(03/17/16 5:03 PM) UA Ketones (test code = UA Ketones) Negative *NA*(03/17/16 5:03 PM) UA Glucose (test code = UA Glucose) Negative (03/17/16 5:03 PM) UA Spec Grav (test code = UA Spec Grav) 1.025 1 UA pH (test code = UA pH) 6.0 1 5.0-8.0 UA Protein (test code = UA Protein) 30 mg/dL UA Nitrite (test code = UA Nitrite) Negative (03/17/16 5:03 PM) UA Bili (test code = UA Bili) Negative *NA*(03/17/16 5:03 PM) UA Blood (test code = UA Blood) Moderate *ABN*(03/17/16 5:03 PM) UA Urobilinogen (test code = UA Urobilinogen) 4.0 0.1-1.0 UA Leuk Est (test code = UA Leuk Est) Moderate *ABN*(03/17/16 5:03 PM) UA Sq Epi (test code = UA Sq Epi) Occasional /LPF UA RBC (test code = UA RBC) 3-5 /HPF <=2 UA Bacteria (test code = UA Bacteria) Many /HPF UA WBC (test code = UA WBC) 11-20 /HPF [facility] [id number] 22:42:00* Test Item Value Reference Range Interpretation Comme nts Lipase Lvl (test code = Lipase Lvl) 193 73-393 A/G Ratio (test code = A/G Ratio) 0.5 0.7-1.6 AGAP (test code = AGAP) 11.4 10.0-20.0 Globulin (test code = Globulin) 5.5 2.7-4.2 B/C Ratio (test code = B/C Ratio) 7 6-25 eGFR (test code = eGFR) 100 ALANINE AMINOTRANSFERASE (te st code = ALANINE AMINOTRANSFERASE) 65 <=65 Potassium Lvl (test code = P otassium Lvl) 3.4 3.5-5.1 BUN (test code = BUN) 6 7-22 Sodium Lvl (test code = Sodium Lvl) 137 135-145 Creatinine Lvl (test code = Creatinine Lvl) 0.85 0.50-1.40 Bili Total (test code = Bili Total) 0.5 0.2-1.3 Chloride Lvl (test code = Chloride Lvl) 100 95-109 Calcium Lvl (test code = Calcium Lvl) 9.6 8.5-10.5 CO2 (test code = CO2) 29 24-32 ASPARTATE TRANSAMINASE (test code = ASPARTATE TRANSAMINASE) 59 <=37 Total Protein (test code = T otal Protein) 8.5 6.4-8.4 Glucose Lvl (test code = Glucose Lvl) 106 70-99 Albumin Lvl (test code = Albumin Lvl) 3.0 3.5-5.0 Alk Phos (test code = Alk Phos) 83 39-136 [facility] C[id number] 22:42:00* Test Item Value Reference Range Interpretation Comme nts S Preg (test code = S Preg) Negative *NA*(03/17/16 4:42 PM) [facility] [id number] 22:42:00* Test Item Value Reference Range Interpretation Comme nts MPV (test code = MPV) 8.6 7.4-10.4 MCHC (test code = MCHC) 34.3 32.0-36.0 Platelet (test code = Platelet) 133 133-450 RDW (test code = RDW) 16.8 11.5-14.5 MCH (test code = MCH) 28.7 pg 27.0-31.0 Hgb (test code = Hgb) 11.7 12.0-16.0 Hct (test code = Hct) 34.1 36.0-48.0 WBC X 10x3 (test code = WBC X 10x3) 7.6 3.7-10.4 MCV (test code = MCV) 83.6 80.0-98.0 RBC X 10x6 (test code = RBC X 10x6) 4.08 4.20-5.40 Eosinophils (test code = Eosinophils) 0.6 <=4.0 Lymphocytes (test code = Lymphocytes) 16.1 20.0-40.0 Monocytes (test code = Monocytes) 12.9 2.0-12.0 Segs-Bands # (test code = Se gs-Bands #) 5.3 1.5-8.1 Monocytes # (test code = Monocytes #) 1.0 <=0.8 Lymphocytes # (test code = Lymphocytes #) 1.2 1.0-5.5 Basophils (test code = Basophils) 0.2 <=1.0 Segs (test code = Segs) 70.2 45.0-75.0 [facility] CenterVIRAL - [id number] 22:42:00* Test Item Value Reference Range Interpretation Comme nts Influ B (test code = Influ B) Negative (03/17/16 4:42 PM) Influ A (test code = Influ A) Negative (03/17/16 4:42 PM) [facility] [id number] 11:10:00* Test Item Value Reference Range Interpretation Comme nts % Satur Fe (test code = % Satur Fe) 6 12-57 TIBC (test code = TIBC) 478 228-428 UIBC (test code = UIBC) 448 110-370 Iron (test code = Iron) 30 30-160 Ferritin Lvl (test code = Ferritin Lvl) 5 5-204 [facility] CenterCARDIAC [id number] 11:10:00* Test Item Value Reference Range Interpretation Comme nts CK MB (test code = CK MB) 0.7 0.5-3.6 Total CK (test code = Total CK) 217 12-191 CK MB Index (test code = CK MB Index) 0.3 <=2.5 [facility] CenterCHEM [id number] 11:10:00* Test Item Value Reference Range Interpretation Comme nts eGFR (test code = eGFR) 132 AST (test code = AST) 39 <=37 Alk Phos (test code = Alk Phos) 91 39-136 ALT (test code = ALT) 25 <=65 Bili Total (test code = Bili Total) 0.4 0.2-1.3 Calcium Lvl (test code = Calcium Lvl) 9.4 8.5-10.5 B/C Ratio (test code = B/C Ratio) 13 6-25 AGAP (test code = AGAP) 15.2 10.0-20.0 CO2 (test code = CO2) 21 24-32 A/G Ratio (test code = A/G Ratio) 0.5 0.7-1.6 Globulin (test code = Globulin) 5.0 2.0-4.0 Total Protein (test code = T otal Protein) 7.7 6.4-8.4 Albumin Lvl (test code = Albumin Lvl) 2.7 3.5-5.0 BUN (test code = BUN) 8 7-22 Glucose Lvl (test code = Glucose Lvl) 86 70-99 Creatinine Lvl (test code = Creatinine Lvl) 0.60 0.50-1.40 Sodium Lvl (test code = Sodium Lvl) 138 135-145 Chloride Lvl (test code = Chloride Lvl) 106 95-109 Potassium Lvl (test code = P otassium Lvl) 4.2 3.5-5.1 [facility] [id number] 11:10:00* Test Item Value Reference Range Interpretation Comme nts Polychrom (test code = Polychrom) Moderate *ABN*(04/08/15 5:10 AM) Microcyte (test code = Microcyte) 2+ *ABN*(04/08/15 5:10 AM) Basophils # (test code = Basophils #) 0.0 <=0.2 Plt Morph (test code = Plt Morph) Normal (04/08/15 5:10 AM) Lymphocytes # (test code = Lymphocytes #) 1.8 1.0-5.5 Segs-Bands # (test code = Segs-Bands #) 3.0 1.5-8.1 Monocytes # (test code = Monocytes #) 0.4 <=0.8 Eosinophils # (test code = Eosinophils #) 0.1 <=0.5 Monocytes (test code = Monocytes) 7.0 2.0-12.0 Segs (test code = Segs) 56.2 45.0-75.0 Eosinophils (test code = Eosinophils) 2.0 <=4.0 Lymphocytes (test code = Lymphocytes) 34.2 20.0-40.0 Basophils (test code = Basophils) 0.6 <=1.0 MPV (test code = MPV) 8.3 7.4-10.4 Platelet (test code = Platelet) 291 133-450 RDW (test code = RDW) 17.7 11.5-14.5 MCHC (test code = MCHC) 30.4 32.0-36.0 MCH (test code = MCH) 21.9 pg 27.0-31.0 RBC (test code = RBC) 3.99 4.20-5.40 WBC (test code = WBC) 5.4 3.7-10.4 MCV (test code = MCV) 72.1 80.0-98.0 Hgb (test code = Hgb) 8.8 12.0-16.0 Hct (test code = Hct) 28.8 36.0-48.0 [facility] [id number] 11:10:00* Test Item Value Reference Range Interpretation Comme nts CHD Risk (test code = CHD Risk) 3.45 3.90-5.80 HDL (test code = HDL) 53 LDL (Calculated) (test code = LDL (Calculated)) 106 Trig (test code = Trig) 121 Chol (test code = Chol) 183 VLDL (test code = VLDL) 24 [facility] [id number] 02:16:00* Test Item Value Reference Range Interpretation Comme nts Folate Lvl (test code = Folate Lvl) 17.7 Vitamin B12 Lvl (test code = Vitamin B12 Lvl) 305 889-1043 Ferritin Lvl (test code = Ferritin Lvl) 2 5-204 [facility] [id number] 02:16:00* Test Item Value Reference Range Interpretation Comme nts Retic Auto (test code = Retic Auto) 1.4 0.5-1.5 [facility] [id number] 23:25:00* Test Item Value Reference Range Interpretation Comme nts Troponin-I (test code = Troponin-I) no gt <=0.40 Total CK (test code = Total CK) 257 12-191 CK MB Index (test code = CK MB Index) 0.4 <=2.5 CK MB (test code = CK MB) 1.1 0.5-3.6 [facility] [id number] 15:59:00* Test Item Value Reference Range Interpretation Comme nts Troponin-I (test code = Troponin-I) no gt <=0.40 [facility] [id number] 14:33:00* Test Item Value Reference Range Interpretation Comme nts UA Spec Grav (test code = UA Spec Grav) 1.020 1 UA Protein (test code = UA Protein) Trace *ABN*(04/07/15 8:33 AM) UA pH (test code = UA pH) 6.5 1 5.0-8.0 UA Ketones (test code = UA Ketones) Negative *NA*(04/07/15 8:33 AM) UA Glucose (test code = UA Glucose) Negative (04/07/15 8:33 AM) UA Bili (test code = UA Bili) Negative *NA*(04/07/15 8:33 AM) UA Urobilinogen (test code = UA Urobilinogen) 0.2 0.1-1.0 UA Blood (test code = UA Blood) Large *ABN*(04/07/15 8:33 AM) UA Leuk Est (test code = UA Leuk Est) Negative (04/07/15 8:33 AM) UA Nitrite (test code = UA Nitrite) Negative (04/07/15 8:33 AM) UA Turbidity (test code = UA Turbidity) Clear (04/07/15 8:33 AM) UA Color (test code = UA Color) Yellow *NA*(04/07/15 8:33 AM) UA Mucus (test code = UA Mucus) Few /LPF UA Bacteria (test code = UA Bacteria) Occasional /HPF UA WBC (test code = UA WBC) 0-2 /HPF UA Sq Epi (test code = UA Sq Epi) Few /LPF Micro? (test code = Micro?) Performed (04/07/15 8:33 AM) UA RBC (test code = UA RBC) 3-5 /HPF <=2 [facility] CenterCARDIAC [id number] 13:28:00* Test Item Value Reference Range Interpretation Comme nts Troponin-I (test code = Troponin-I) no gt <=0.40 BNP (test code = BNP) 45 CK MB (test code = CK MB) 1.2 0.5-3.6 Total CK (test code = Total CK) 219 12-191 CK MB Index (test code = CK MB Index) 0.5 <=2.5 [facility] CenterCHEM [id number] 13:28:00* Test Item Value Reference Range Interpretation Comme nts eGFR (test code = eGFR) 115 AGAP (test code = AGAP) 15.0 10.0-20.0 Bili Total (test code = Bili Total) 0.2 0.2-1.3 A/G Ratio (test code = A/G Ratio) 0.6 0.7-1.6 Globulin (test code = Globulin) 5.4 2.0-4.0 B/C Ratio (test code = B/C Ratio) 12 6-25 Alk Phos (test code = Alk Phos) 107 39-136 ALT (test code = ALT) 24 <=65 AST (test code = AST) 19 <=37 CO2 (test code = CO2) 24 24-32 Calcium Lvl (test code = Calcium Lvl) 9.5 8.5-10.5 Total Protein (test code = T otal Protein) 8.4 6.4-8.4 BUN (test code = BUN) 9 7-22 Albumin Lvl (test code = Albumin Lvl) 3.0 3.5-5.0 Creatinine Lvl (test code = Creatinine Lvl) 0.75 0.50-1.40 Sodium Lvl (test code = Sodium Lvl) 139 135-145 Potassium Lvl (test code = P otassium Lvl) 4.0 3.5-5.1 Chloride Lvl (test code = Chloride Lvl) 104 95-109 Glucose Lvl (test code = Glucose Lvl) 118 70-99 [id number] 13:28:00* Test Item Value Reference Range Interpretation Comme nts Hgb (test code = Hgb) 9.2 12.0-16.0 MCV (test code = MCV) 71.0 80.0-98.0 MCH (test code = MCH) 21.4 pg 27.0-31.0 Platelet (test code = Platelet) 280 133-450 MPV (test code = MPV) 8.0 7.4-10.4 RDW (test code = RDW) 18.0 11.5-14.5 MCHC (test code = MCHC) 30.1 32.0-36.0 WBC (test code = WBC) 9.0 3.7-10.4 RBC (test code = RBC) 4.30 4.20-5.40 Hct (test code = Hct) 30.5 36.0-48.0 Segs (test code = Segs) 84.7 45.0-75.0 Lymphocytes (test code = Lymphocytes) 9.4 20.0-40.0 Eosinophils # (test code = Eosinophils #) 0.0 <=0.5 Lymphocytes # (test code = Lymphocytes #) 0.8 1.0-5.5 Monocytes # (test code = Monocytes #) 0.5 <=0.8 Segs-Bands # (test code = Se gs-Bands #) 7.6 1.5-8.1 Monocytes (test code = Monocytes) 5.4 2.0-12.0 Eosinophils (test code = Eosinophils) 0.3 <=4.0 Basophils (test code = Basophils) 0.2 <=1.0 Basophils # (test code = Basophils #) 0.0 <=0.2 [facility] [id number] 20:27:00* Test Item Value Reference Range Interpretation Comme nts CK MB Index (test code = CK MB Index) 0.4 <=2.5 CK MB (test code = CK MB) 0.6 0.5-3.6 Troponin-I (test code = Troponin-I) no gt <=0.40 Total CK (test code = Total CK) 136 12-191 [id number] 09:19:00* Test Item Value Reference Range Interpretation Comme nts Potassium Lvl (test code = P otassium Lvl) 4.4 3.5-5.1 Sodium Lvl (test code = Sodium Lvl) 139 135-145 Chloride Lvl (test code = Chloride Lvl) 107 95-109 eGFR (test code = eGFR) 107 CO2 (test code = CO2) 20 24-32 Calcium Lvl (test code = Calcium Lvl) 9.5 8.5-10.5 Total Protein (test code = T otal Protein) 7.7 6.4-8.4 Albumin Lvl (test code = Albumin Lvl) 2.9 3.5-5.0 ALT (test code = ALT) 21 <=65 AST (test code = AST) 27 <=37 Alk Phos (test code = Alk Phos) 81 39-136 Bili Total (test code = Bili Total) 0.4 0.2-1.3 Creatinine Lvl (test code = Creatinine Lvl) 0.8 0.5-1.4 Glucose Lvl (test code = Glucose Lvl) 88 70-99 BUN (test code = BUN) 7 7-22 AGAP (test code = AGAP) 16.4 10.0-20.0 B/C Ratio (test code = B/C Ratio) 9 6-25 Globulin (test code = Globulin) 4.8 2.0-4.0 A/G Ratio (test code = A/G Ratio) 0.6 0.7-1.6 [facility] [id number] 09:19:00* Test Item Value Reference Range Interpretation Comme nts Eosinophils # (test code = Eosinophils #) 0.1 <=0.5 Segs (test code = Segs) 54.4 45.0-75.0 Lymphocytes (test code = Lymphocytes) 31.6 20.0-40.0 Basophils (test code = Basophils) 0.9 <=1.0 Segs-Bands # (test code = Segs-Bands #) 2.8 1.5-8.1 Monocytes (test code = Monocytes) 10.8 2.0-12.0 Eosinophils (test code = Eosinophils) 2.3 <=4.0 Microcyte (test code = Microcyte) 3+ *NA*(11/06/14 4:19 AM) Lymphocytes # (test code = Lymphocytes #) 1.6 1.0-5.5 Monocytes # (test code = Monocytes #) 0.6 <=0.8 MCHC (test code = MCHC) 30.6 32.0-36.0 MPV (test code = MPV) 8.2 7.4-10.4 RDW (test code = RDW) 17.5 11.5-14.5 Platelet (test code = Platelet) 257 133-450 RBC (test code = RBC) 4.00 4.20-5.40 Hgb (test code = Hgb) 8.4 12.0-16.0 MCH (test code = MCH) 21.1 pg 27.0-31.0 Hct (test code = Hct) 27.6 36.0-48.0 MCV (test code = MCV) 68.8 80.0-98.0 WBC (test code = WBC) 5.1 3.7-10.4 [facility] [id number] 04:28:00* Test Item Value Reference Range Interpretation Comme [facility] RBC Folate (test code = RBC Folate) 1058 280-791 Folate Lvl (test code = Folate Lvl) 10.4 Vitamin B12 Lvl (test code = Vitamin B12 Lvl) 408 115-8744 TIBC (test code = TIBC) 434 228-428 Iron (test code = Iron) 15 30-160 % Satur Fe (test code = % Satur Fe) 3 12-57 UIBC (test code = UIBC) 419 110-370 Ferritin Lvl (test code = Ferritin Lvl) 2 5-204 [facility] CenterCHEM [id number] 04:28:00* Test Item Value Reference Range Interpretation Comme nts LDH (test code = LDH) 114 98-192 [facility] [id number] 04:28:00* Test Item Value Reference Range Interpretation Comme nts Retic Auto (test code = Retic Auto) 1.7 0.5-1.5 [facility] CenterTemynipDFDNVBHSUM7102-16-31 04:28:00* Test Item Value Reference Range Interpretation Comme nts Homocyst Tot (test code = Homocyst Tot) 12.8 3.7-13. 9 [facility] CenterUR[facility] AND [id number] 22:15:00* Test Item Value Reference Range Interpretation Comme nts Occult Bld Stl (test code = Occult Bld Stl) Negative (11/05/14 5:15 PM) [facility] [id number] 21:23:00* Test Item Value Reference Range Interpretation Comme nts ABO/Rh (test code = ABO/Rh) B POS Antibody Scrn (test code = Antibody Scrn) Negative (11/05/14 4:23 PM) [facility] CenterCARDIAC [id number] 20:02:00* Test Item Value Reference Range Interpretation Comme nts CK MB (test code = CK MB) no gt 0.5-3.6 Troponin-I (test code = Troponin-I) no gt <=0.40 Total CK (test code = Total CK) 148 12-191 CK MB Index (test code = CK MB Index) no gt <=2.5 [facility] CenterCHEM [id number] 20:02:00* Test Item Value Reference Range Interpretation Comme nts eGFR (test code = eGFR) 104 CO2 (test code = CO2) 27 24-32 Calcium Lvl (test code = Calcium Lvl) 9.8 8.5-10.5 Bili Total (test code = Bili Total) 0.3 0.2-1.3 BUN (test code = BUN) 7 7-22 Glucose Lvl (test code = Glucose Lvl) 87 70-99 Sodium Lvl (test code = Sodium Lvl) 138 135-145 Chloride Lvl (test code = Chloride Lvl) 104 95-109 Potassium Lvl (test code = P otassium Lvl) 3.5 3.5-5.1 Creatinine Lvl (test code = Creatinine Lvl) 0.8 0.5-1.4 Total Protein (test code = T otal Protein) 8.2 6.4-8.4 AST (test code = AST) 17 <=37 Globulin (test code = Globulin) 5.0 2.0-4.0 A/G Ratio (test code = A/G Ratio) 0.6 0.7-1.6 B/C Ratio (test code = B/C Ratio) 9 6-25 AGAP (test code = AGAP) 10.5 10.0-20.0 Alk Phos (test code = Alk Phos) 83 39-136 Albumin Lvl (test code = Albumin Lvl) 3.2 3.5-5.0 ALT (test code = ALT) 18 <=65 [id number] 20:02:00* Test Item Value Reference Range Interpretation Comme nts PTT (test code = PTT) 29.7 s 22.9-35.8 PT (test code = PT) 15.1 s 12.0-14.7 INR (test code = INR) 1.18 0.85-1.17 WBC (test code = WBC) 5.0 3.7-10.4 RBC (test code = RBC) 4.01 4.20-5.40 Hgb (test code = Hgb) 8.2 12.0-16.0 MPV (test code = MPV) 7.6 7.4-10.4 RDW (test code = RDW) 17.2 11.5-14.5 Platelet (test code = Platelet) 281 133-450 MCH (test code = MCH) 20.4 pg 27.0-31.0 MCHC (test code = MCHC) 29.8 32.0-36.0 MCV (test code = MCV) 68.4 80.0-98.0 Hct (test code = Hct) 27.4 36.0-48.0 Segs (test code = Segs) 63.4 45.0-75.0 Hypochrom (test code = Hypochrom) 1+ (11/05/14 3:02 PM) Monocytes (test code = Monocytes) 10.2 2.0-12.0 Eosinophils (test code = Eosinophils) 1.5 <=4.0 Basophils (test code = Basophils) 0.3 <=1.0 Lymphocytes (test code = Lymphocytes) 24.6 20.0-40.0 Plt Morph (test code = Plt Morph) Normal (11/05/14 3:02 PM) RBC Morph (test code = RBC Morph) See Note (11/05/14 3:02 PM) Lymphocytes # (test code = Lymphocytes #) 1.2 1.0-5.5 Monocytes # (test code = Monocytes #) 0.5 <=0.8 Segs-Bands # (test code = Segs-Bands #) 3.2 1.5-8.1 Microcyte (test code = Microcyte) 3+ *NA*(11/05/14 3:02 PM) Eosinophils # (test code = Eosinophils #) 0.1 <=0.[address] [facility] AND [id number] 18:07:00* Test Item Value Reference Range Interpretation Comme nts UA Leuk Est (test code = UA Leuk Est) Small *ABN*(11/03/14 1:07 PM) UA Ketones (test code = UA Ketones) Negative *NA*(11/03/14 1:07 PM) UA Turbidity (test code = UA Turbidity) Cloudy *ABN*(11/03/14 1:07 PM) UA Spec Grav (test code = UA Spec Grav) 1.010 1 UA Protein (test code = UA Protein) Trace *ABN*(11/03/14 1:07 PM) UA pH (test code = UA pH) 7.5 1 5.0-8.0 UA Color (test code = UA Color) Yellow *NA*(11/03/14 1:07 PM) UA Glucose (test code = UA Glucose) Negative (11/03/14 1:07 PM) UA Blood (test code = UA Blood) Negative (11/03/14 1:07 PM) UA Bili (test code = UA Bili) Negative *NA*(11/03/14 1:07 PM) UA Urobilinogen (test code = UA Urobilinogen) 1.0 0.1-1.0 UA Nitrite (test code = UA Nitrite) Negative (11/03/14 1:07 PM) UA RBC (test code = UA RBC) 0-2 /HPF <=2 UA WBC (test code = UA WBC) 11-20 /HPF UA Sq Epi (test code = UA Sq Epi) Few /LPF UA Bacteria (test code = UA Bacteria) Many /HPF [facility] [id number] 18:07:00* Test Item Value Reference Range Interpretation Comme nts U Preg (test code = U Preg) Negative (11/03/14 1:07 PM) [facility] [id number] 16:45:00* Test Item Value Reference Range Interpretation Comme nts Troponin-I (test code = Troponin-I) no gt <=0.40 [facility] TylerannCARDIAC [id number] 14:00:00* Test Item Value Reference Range Interpretation Comme nts Troponin-I (test code = Troponin-I) no gt <=0.40 Total CK (test code = Total CK) 196 12-191 CK MB (test code = CK MB) 0.5 0.5-3.6 proBNP (test code = proBNP) 18 <=125 CK MB Index (test code = CK MB Index) 0.[address] [facility] ScytlCHEM [id number] 14:00:00* Test Item Value Reference Range Interpretation Comme nts eGFR (test code = eGFR) 111 Chloride Lvl (test code = Chloride Lvl) 103 95-109 BUN (test code = BUN) 6 7-22 Creatinine Lvl (test code = Creatinine Lvl) 0.8 0.5-1.4 Sodium Lvl (test code = Sodium Lvl) 138 135-145 Potassium Lvl (test code = P otassium Lvl) 3.7 3.5-5.1 Calcium Lvl (test code = Calcium Lvl) 9.5 8.5-10.5 Total Protein (test code = T otal Protein) 8.2 6.4-8.4 CO2 (test code = CO2) 28 24-32 Bili Total (test code = Bili Total) 0.5 0.2-1.3 AGAP (test code = AGAP) 10.7 10.0-20.0 B/C Ratio (test code = B/C Ratio) 8 6-25 Globulin (test code = Globulin) 5.0 2.0-4.0 A/G Ratio (test code = A/G Ratio) 0.6 0.7-1.6 AST (test code = AST) 16 <=37 Glucose Lvl (test code = Glucose Lvl) 88 70-99 ALT (test code = ALT) 20 <=65 Albumin Lvl (test code = Albumin Lvl) 3.2 3.5-5.0 Alk Phos (test code = Alk Phos) 85 39-136 [id number] 14:00:00* Test Item Value Reference Range Interpretation Comme nts Basophils (test code = Basophils) 0.8 <=1.0 Lymphocytes # (test code = Lymphocytes #) 1.3 1.0-5.5 Segs-Bands # (test code = Segs-Bands #) 2.4 1.5-8.1 Monocytes # (test code = Monocytes #) 0.4 <=0.8 Microcyte (test code = Microcyte) 3+ *NA*(11/03/14 9:00 AM) Eosinophils # (test code = Eosinophils #) 0.1 <=0.5 Segs (test code = Segs) 57.0 45.0-75.0 Lymphocytes (test code = Lymphocytes) 30.7 20.0-40.0 Eosinophils (test code = Eosinophils) 1.7 <=4.0 Monocytes (test code = Monocytes) 9.8 2.0-12.0 Plt Morph (test code = Plt Morph) Normal (11/03/14 9:00 AM) MPV (test code = MPV) 7.6 7.4-10.4 Platelet (test code = Platelet) 259 133-450 MCH (test code = MCH) 20.5 pg 27.0-31.0 MCHC (test code = MCHC) 30.3 32.0-36.0 RDW (test code = RDW) 17.4 11.5-14.5 Hgb (test code = Hgb) 8.1 12.0-16.0 Hct (test code = Hct) 26.7 36.0-48.0 MCV (test code = MCV) 67.6 80.0-98.0 RBC (test code = RBC) 3.95 4.20-5.40 WBC (test code = WBC) 4.2 3.7-10.4 D-Dimer (test code = D-Dimer) 0.27 [id number] 21:55:00* Test Item Value Reference Range Interpretation Comme nts U Preg (test code = U Preg) Negative (03/07/2013 15:55:00) N [facility] [id number] 21:55:00* Test Item Value Reference Range Interpretation Comme nts UA Bili (test code = UA Bili) Negative *NA*(03/07/2013 15:55:00) UA Blood (test code = UA Blood) Negative (03/07/2013 15:55:00) N UA Ketones (test code = UA Ketones) Negative *NA*(03/07/2013 15:55:00) UA Protein (test code = UA Protein) Trace *ABN*(03/07/2013 15:55:00) A UA Glucose (test code = UA Glucose) Negative (03/07/2013 15:55:00) N UA pH (test code = UA pH) 7.5 1 5.0-8.0 N UA Nitrite (test code = UA Nitrite) Negative (03/07/2013 15:55:00) N UA Urobilinogen (test code = UA Urobilinogen) 1.0 0.1-1.0 N UA Leuk Est (test code = UA Leuk Est) Negative (03/07/2013 15:55:00) N UA Spec Grav (test code = UA Spec Grav) 1.015 1 N UA Color (test code = UA Color) Yellow *NA*(03/07/2013 15:55:00) UA Turbidity (test code = UA Turbidity) Clear (03/07/2013 15:55:00) N UA Sq Epi (test code = UA Sq Epi) Few /LPF N Micro? (test code = Micro?) Performed (03/07/2013 15:55:00) N UA Bacteria (test code = UA Bacteria) Occasional /HPF N [facility] [id number] 15:45:45* Test Item Value Reference Range Interpretation Comme nts CK-MB INDEX (test code = CK-MB INDEX) 0.2 <=2.5 N Lactic Acid Lvl (test code = Lactic Acid Lvl) 1.9 0.5-2.2 N CK MB (test code = CK MB) 1.1 0.5-3.6 N Troponin-I (test code = Troponin-I) no gt <=0.40 N eGFR (test code = eGFR) 82 BUN (test code = BUN) 7 7-22 N Potassium Lvl (test code = P otassium Lvl) 3.9 3.5-5.1 N Calcium Lvl (test code = Calcium Lvl) 9.6 8.5-10.5 N AGAP (test code = AGAP) 12.9 10.0-20.0 N Glucose Lvl (test code = Glucose Lvl) 131 70-99 H Chloride Lvl (test code = Chloride Lvl) 102 95-109 N CO2 (test code = CO2) 24 24-32 N Creatinine Lvl (test code = Creatinine Lvl) 0.9 0.5-1.4 N Sodium Lvl (test code = Sodium Lvl) 135 135-145 N Total CK (test code = Total CK) 469 12-191 H [facility]VIRAL - [id number] 15:45:37* Test Item Value Reference Range Interpretation Comme nts Influ A (test code = Influ A) Negative (03/07/2013 09:45:37) N Influ B (test code = Influ B) Negative 1(03/07/2013 09:45:37) N [facility] [id number] 15:45:00* Test Item Value Reference Range Interpretation Comme nts Eosinophils (test code = Eosinophils) 0.1 <=4.0 N Basophils (test code = Basophils) 0.0 <=1.0 N Target Cell (test code = Target Cell) Slight *ABN*(03/07/2013 09:45:00) A Elliptocyte (test code = Elliptocyte) Slight *ABN*(03/07/2013 09:45:00) A Plt Morph (test code = Plt Morph) Normal (03/07/2013 09:45:00) N Basophils # (test code = Basophils #) 0.0 <=0.2 N Microcyte (test code = Microcyte) 1+ *ABN*(03/07/2013 09:45:00) A Lymphocytes # (test code = Lymphocytes #) 0.2 1.0-5.5 L Eosinophils # (test code = Eosinophils #) 0.0 <=0.5 N Monocytes # (test code = Monocytes #) 0.4 <=0.8 N Segs-Bands # (test code = Segs-Bands #) 6.7 1.5-8.1 N Segs (test code = Segs) 91.4 45.0-75.0 H Lymphocytes (test code = Lymphocytes) 3.3 20.0-40.0 L Monocytes (test code = Monocytes) 5.2 2.0-12.0 N Polychrom (test code = Polychrom) Slight (03/07/2013 09:45:00) N Hypochrom (test code = Hypochrom) Slight (03/07/2013 09:45:00) N RBC X 10x6 (test code = RBC X 10x6) 3.99 4.20-5.40 L Hgb (test code = Hgb) 8.3 12.0-16.0 L WBC X 10x3 (test code = WBC X 10x3) 7.3 3.7-10.4 N Platelet (test code = Platelet) 305 133-450 N RDW (test code = RDW) 17.9 11.5-14.5 H Hct (test code = Hct) 26.1 36.0-48.0 L MCH (test code = MCH) 20.7 pg 27.0-31.0 L MCV (test code = MCV) 65.4 81.0-99.0 L MCHC (test code = MCHC) 31.7 32.0-36.0 L MPV (test code = MPV) 8.0 7.4-10.4 N Nadia Gibson Notes Date/Time Note Provider Source [facility]2025-07-25 00:00:00 [facility]2025-05-28 00:00:00 [facility]2024-12-11 00:00:00 [facility]2024-05-01 21:30:36 Pt discharged with diagnosis of flank pain, kidney stone, encouraged hydration. Printed and verbal instructions reviewed with and given to pt. Pt. verbalized understanding of teaching and recommended follow-up. Denies questions or concerns at this time. Pt ambulatory at discharge. Appears in no apparent distress. No ataxia noted. Advised to seek medical attention for new/prolonged/worsening of symptoms, Symptoms improved. No adverse reaction to meds given in ER noted upon discharge PIV d'cd, dressing to site, catheter in tact. [id number] 19[facility]37:32 Patient arrived ambulatory to ED c/o left side pain for a couple of days that won't stop hurting. Patient states having kidney stone on left side. 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 Pina Murillo [id number] 19:20:00 [facility] Emergency Department Note Patient Name: Roxana Young Date of : 1975 48 year old female Treatment Room: Room/bed info not found Primary Care Physician: Hugh Mercado [facility] Patient Escorted by: Family [5] Mode of Arrival: Personal means [1] EMS Treatment Prior to ED Arrival: Travel and Exposure Screening: Symptoms Does patient have any of these symptoms?: (not recorded) Exposure Screening Has patient had contact with someone with a communicable disease in the last month?: (not recorded) Diseases exposed to:: (not recorded) Is Patient ?: (not recorded) Exposure Date: (not recorded) Chief Complaint: Chief Complaint Patient presents with Flank Pain History of Present Illness: HPI Roxana Young is a 48 year old female with PMHx of kidney stones presenting with left-sided flank pain and nausea that started approximately 2 days ago. Patient reports associated nausea. Patient denies any vomiting. Patient denies any blood in her stool or urine. Patient denies fevers or sick contacts. Past Medical History/Immunizations: Past Medical History: Diagnosis Date GERD (gastroesophageal reflux disease) Allergies: Allergies Allergen Reactions Hydrocodone Hallucinations and Shortness of Breath Past Social History: Tobacco Use Never smoked or used smokeless tobacco. Alcohol Use No. Drug Use No. Sexual Activity Not currently sexually active. Past Surgical History: Past Surgical History: Procedure Laterality Date SECTION x2 HYSTERECTOMY Review of Systems: Review of Systems Constitutional: Positive for fatigue. Negative for activity change, appetite change and fever. HENT: Negative for facial swelling. Eyes: Negative for photophobia and visual disturbance. Respiratory: Negative for apnea, cough, choking, chest tightness, shortness of breath, wheezing and stridor. Cardiovascular: Negative for chest pain, palpitations and leg swelling. Gastrointestinal: Positive for abdominal pain and nausea. Negative for abdominal distention, anal bleeding, blood in stool, constipation, diarrhea, rectal pain and vomiting. Genitourinary: Positive for flank pain. Negative for dysuria. Musculoskeletal: Negative for neck pain. Neurological: Negative for dizziness, tremors, seizures, syncope, facial asymmetry, speech difficulty, weakness, light-headedness, numbness and headaches. Physical Exam: ED Triage Vitals [07/25/231938] Weight 90.7 kg (200 lb) Actual or estimated Estimated by patient/family report Height 1.626 m (5' 4") BP (!) 139/99 Pulse 85 Resp 16 Temp 37.1 ?C (98.8 ?F) Temp source Oral SpO2 99 % Measured on Room air Physical Exam Vitals and nursing note reviewed. Constitutional: Appearance: She is well-developed. Eyes: General: Right eye: No discharge. Left eye: No discharge. Conjunctiva/sclera: Conjunctivae normal. Neck: Thyroid: No thyromegaly. Cardiovascular: Rate and Rhythm: Normal rate and regular rhythm. Heart sounds: Normal heart sounds. No murmur heard. No friction rub. No gallop. Pulmonary: Effort: No respiratory distress. Breath sounds: No stridor. No wheezing or rales. Chest: Chest wall: No tenderness. Abdominal: General: There is no distension. Palpations: Abdomen is soft. There is no mass. Tenderness: There is no abdominal tenderness. There is left CVA tenderness. There is no right CVA tenderness, guarding or rebound. Hernia: No hernia is present. Musculoskeletal: General: No tenderness or deformity. Cervical back: Neck supple. Skin: General: Skin is warm and dry. Coloration: Skin is not pale. Findings: No erythema. Neurological: General: No focal deficit present. Mental Status: She is alert and oriented to person, place, and time. Cranial Nerves: No cranial nerve deficit. Sensory: No sensory deficit. Motor: No weakness. Coordination: Coordination normal. Gait: Gait normal. Radiology: CT ABDOMEN PELVIS WO CONTRAST Final Result EXAM: CT ABDOMEN PELVIS WO CONTRAST HISTORY: 48 years-old Female Flank pain, kidney stone suspected COMPARISON: CT dated 12/04/2022. TECHNIQUE AND FINDINGS: Contiguous axial imaging from the level of the lung bases through the pubic symphysis was performed. Coronal and sagittal reconstructions were obtained. Auto mA and/or iterative reconstruction were used to reduce radiation dose. FINDINGS: Limited evaluation of solid organ without administration intravenous contrast. LOWER THORAX: Parenchymal bands are seen at both lung bases. LIVER: No focal hepatic lesions. Normal contour. GALLBLADDER AND BILIARY TREE: No intra or extrahepatic biliary dilatation. No gallbladder wall thickening. SPLEEN: No splenomegaly PANCREAS: No ductal dilation or masses. ADRENAL GLANDS: No adrenal nodules. KIDNEYS: Small bilateral renal stones are seen. No hydronephrosis or masses. GI TRACT: No dilation or abnormal wall thickening. PERITONEUM AND RETROPERITONEUM: No free air or fluid. LYMPH NODES: No lymphadenopathy. PELVIS/BLADDER: Circumferential urinary bladder wall thickening out of proportion for the degree of distention. VESSELS: Limited evaluation without IV contrast. BONES AND SOFT TISSUES: No suspicious lytic or sclerotic bony lesions. IMPRESSION Circumferential urinary bladder wall thickening out of proportion for the degree of distention. Recommend correlation with urinalysis to exclude cystitis. Otherwise, no acute intra-abdominal or pelvic abnormality. Nonobstructing bilateral nephrolithiasis. Preliminary Report Dictated by Resident: Padmini Gomez I, Lucille Herrera MD., have reviewed this study and agree with the above report. Lab Results: Lab Results COMP. METABOLIC PANEL (94871) - Abnormal Result Value Ref Range NA 139 135 - 145 mmol/L K 4.1 3.5 - 5.0 mmol/L CL 101 98 - 108 mmol/L CO2 TOTAL 28 23 - 31 mmol/L AGAP 10 2 - 16 BUN 14 7 - 23 mg/dL GLUCOSE 86 70 - 110 mg/dL CREATININE 0.83 0.50 - 1.04 mg/dL TOTAL BILI 0.4 0.1 - 1.1 mg/dL CALCIUM 10.9 (*) 8.6 - 10.6 mg/dL T PROTEIN 8.5 (*) 6.3 - 8.2 g/dL ALBUMIN 4.3 3.5 - 5.0 g/dL ALK PHOS 109 34 - 122 U/L ALTv 28 5 - 35 U/L AST(SGOT) 28 13 - 40 U/L eGFR 87.1 mL/min/1.73m2 URINALYSIS - Abnormal APPEARANCE Hazy (*) Clear COLOR Yellow Yellow PH 7.0 4.8 - 8.0 SP GRAVITY 1.017 1.003 - 1.030 GLU U QUAL Normal Normal BLOOD Negative Negative KETONES Negative Negative PROTEIN Negative Negative UROBILIN Normal Normal BILIRUBIN Negative Negative NITRITE Negative Negative LEUK ANA Negative Negative RBC/HPF 2 0 - 3 HPF WBC/HPF 5 0 - 5 HPF BACTERIA Few (*) Negative MUCOUS Slight (*) Negative LPF SQ EPITH 5 HPF YEAST BUD 2 (*) <=1 HPF CBC WITH DIFF WBC 5.97 4.30 - 11.10 10*3/?L RBC 4.10 3.93 - 5.25 10*6/?L HGB 12.5 11.6 - 15.0 g/dL HCT 38.5 35.7 - 45.2 % MCV 93.9 80.6 - 95.5 fL MCH 30.5 25.9 - 32.8 pg MCHC 32.5 31.6 - 35.1 g/dL RDW-SD 45.0 39.0 - 49.9 fL RDW-CV 13.2 12.0 - 15.5 % PLT 173 166 - 358 10*3/?L MPV 10.5 9.5 - 12.9 fL NRBC/100 WBC 0.0 0.0 - 10.0 /100 WBCs NRBC x103<0.01 10*3/?L GRAN MAT (NEUT) % 47.1 % IMM GRAN % 0.30 % LYMPH % 43.0 % MONO % 6.4 % EOS % 2.7 % BASO % 0.5 % GRAN MAT x103(ANC) 2.81 1.88 - 7.09 10*3/uL IMM GRAN x103<0.03 0.00 - 0.06 10*3/uL LYMPH x1032.57 1.32 - 3.29 10*3/uL MONO x1030.38 0.33 - 0.92 10*3/uL EOS x1030.16 0.03 - 0.39 10*3/uL BASO x1030.03 0.01 - 0.07 10*3/uL EKG: If EKG completed, see Procedure Note. Orders and Treatments: Orders Placed This Encounter Procedures CT ABDOMEN PELVIS WO CONTRAST Cbc with Diff Comp. Metabolic Panel (49263) Urinalysis Orders Placed This Encounter Medications ketorolac (TORADOL) injection 15 mg ondansetron (ZOFRAN (PF)) injection 4 mg First Provider Eval: ED Events Date/Time Event User Comments 07/25/231929 Medical Screening Begins TANIKA PALMA MD -- 07/25/231929 First Provider Evaluation TANIKA PALMA MD -- ED COURSE Diagnosis/Impression as of 07/25/232112 Flank pain Kidney stone Procedures: Procedures MDM: Medical Decision Making Roxana Young is a 48 year old female with PMHx of kidney stones presenting with left-sided flank pain as above. Patient's CT scan with bilateral non-obstructing kidney stones. Findings discussed with patient. Plan for discharge home with urology and close PCP follow up. Patient advised to return to the ER for any worsening symptoms. Problems Addressed: Flank pain: acute illness or injury Amount and/or Complexity of Data Reviewed Labs: ordered. Radiology: ordered. Risk Prescription drug management. Flowsheet Documentation: Scoring Tools: No data recorded Disposition/Condition: ED Disposition ED Disposition Disch - Home Condition Stable Comment -- Discharge Medications: Patient's Medications START taking these medications No medications on file CONTINUE taking these medications which have NOT CHANGED AMOXICILLIN 500 MG CAPSULE Take 1 capsule by mouth 3 (three) times daily. BENZONATATE 100 MG CAPSULE Take 1 capsule by mouth 3 (three) times daily as needed for Cough. CHLORPHENIRAMINE 4 MG TABLET Take 1 tablet by mouth every 6 (six) hours as needed for Allergies or Runny nose. DICYCLOMINE (BENTYL) 10 MG CAPSULE Take 1 capsule by mouth 4 (four) times daily. DICYCLOMINE 20 MG TABLET Take 1 tablet by mouth 4 (four) times daily. DOCUSATE SODIUM 250 MG CAPSULE Take 1 capsule by mouth daily. DOCUSATE SODIUM 250 MG CAPSULE Take 1 capsule by mouth once daily as needed for Constipation. IBUPROFEN 800 MG TABLET Take 1 tablet by mouth every 8 (eight) hours. IBUPROFEN 800 MG TABLET Take 1 tablet by mouth every 6 (six) hours as needed for Pain (scale 4-6) or Pain (scale 1-3). LOPERAMIDE 2 MG CAPSULE Take 1 capsule by mouth every 4 (four) hours as needed for Diarrhea. Not to exceed 16mg daily. METHOCARBAMOL 500 MG TABLET Take 1 tablet by mouth 4 (four) times daily as needed for Pain (scale 4-6) or Pain (scale 7-10). NAPROXEN SODIUM 550 MG TABLET Take 1 tablet by mouth 2 (two) times daily with meals. NITROFURANTOIN&NIT. MACROCRYST (MACROBID) 100 MG CAPSULE Take 1 capsule by mouth in the morning and 1 capsule in the evening. ONDANSETRON 4 MG DISINTEGRATING TABLET Take 1 tablet by mouth every 4 (four) hours as needed for Nausea and Vomiting (N/V). ONDANSETRON 4 MG DISINTEGRATING TABLET Take 1 tablet by mouth every 4 (four) hours as needed for Nausea and Vomiting (N/V). ONDANSETRON 4 MG DISINTEGRATING TABLET Take 1 tablet by mouth every 8 (eight) hours as needed for Nausea and Vomiting (N/V). TAMSULOSIN (FLOMAX) 0.4 MG 24 HR CAPSULE Take 1 capsule by mouth in the morning. TRAMADOL 50 MG TABLET Take 1 tablet by mouth every 6 (six) hours as needed for Pain (scale 4-6). START taking Modified Medications as Prescribed No medications on file STOP taking these medications No medications on file Follow-up: Electronically signed by: Tanika Palma MD 07/25/232119 [facility]2023-09-13 06:49:30 Pt given printed and verbal discharge instructions regarding anxiety, encouraged hydration, Pt verbalized understanding of instructions, pt awake alert oriented, resp reg unlabored, skin w/d,color appropriate for race, moves all ext well,pt encouraged to follow up with pcp and or [facility] Advised to seek medical attention for new/prolonged/worsening of symptoms, Symptoms improved Awake, alert oriented, resp reg unlabored, skin w/d, pt leaving amb with steady gait, in no apparent distress, [facility]2023-09-13 06:12:09 Pt was Goggling "Why your eyeballs get smaller" and became anxious and called 911. Pt has history of Anxiety, doesn't take medications for it, reported to EMS that she comes here forher anxiety. [facility] - Usoeug1945-39-27 06:10:00Associated Order(s): EKG-12 Lead ONCE Pre-Procedure Diagnose(s): Anxiety Post-Procedure Diagnose(s): Anxiety [facility] Emergency Department Note Patient Name: Roxana Young Date of : 1975 47 year old female Treatment Room: [facility] Primary Care Physician: Hugh Mercado [facility] Patient Escorted by: Self [9] [facility] [place] EMS Treatment Prior to ED Arrival: MEDIA RELATIONS ASSOCIATE treatment: None Travel and Exposure Screening: Symptoms Does patient have any of these symptoms?: (not recorded) Exposure Screening Has patient had contact with someone with a communicable disease in the last month?: (not recorded) Diseases exposed to:: (not recorded) Is Patient ?: (not recorded) Exposure Date: (not recorded) Chief Complaint: Chief Complaint Patient presents with Anxiety History of Present Illness: 47 y.o female with c/o anxiety after Googling something about eyes. Patient reports h/o MDD with Anxiety, currently taking Zoloft daily. Past Medical History/Immunizations: Past Medical History: Diagnosis Date GERD (gastroesophageal reflux disease) Tetanus received in last 5 years: No Childhood immunizations: Up-to-date Allergies: Allergies Allergen Reactions Hydrocodone Hallucinations and Shortness of Breath Past Social History: Tobacco Use Never smoked or used smokeless tobacco. Alcohol Use No. Drug Use No. Sexual Activity Not currently sexually active. Past Surgical History: Past Surgical History: Procedure Laterality Date SECTION x2 HYSTERECTOMY Review of Systems: Review of Systems Constitutional: Negative. HENT: Negative. Eyes: Negative. Respiratory: Negative. Breasts: Negative. Cardiovascular: Positive for chest pain. Gastrointestinal: Negative. Genitourinary: Negative. Musculoskeletal: Negative. Skin: Negative. Neurological: Negative. Psychiatric/Behavioral: Negative. Endocrine: Endocrine negative Physical Exam: ED Triage Vitals [12/06/22 0613] Weight 84.8 kg (187 lb) Actual or estimated Estimated by patient/family report Height 1.651 m (5' 5") BP (!) 147/90 Pulse 56 Resp 16 Temp 36.6 ?C (97.8 ?F) Temp source Oral SpO2 98 % Measured on Room air Physical Exam Vitals and nursing note reviewed. Constitutional: General: She is not in acute distress. Appearance: Normal appearance. She is not ill-appearing, toxic-appearing or diaphoretic. HENT: Head: Normocephalic and atraumatic. Nose: Nose normal. Mouth/Throat: Mouth: Mucous membranes are moist. Eyes: Pupils: Pupils are equal, round, and reactive to light. Cardiovascular: Rate and Rhythm: Normal rate. Pulses: Normal pulses. Pulmonary: Effort: Pulmonary effort is normal. Abdominal: Palpations: Abdomen is soft. Musculoskeletal: General: Normal range of motion. Skin: General: Skin is warm. Capillary Refill: Capillary refill takes less than 2 seconds. Neurological: General: No focal deficit present. Mental Status: She is alert and oriented to person, place, and time. Psychiatric: Mood and Affect: Mood normal. Behavior: Behavior normal. Radiology: No orders to display Lab Results: Lab Results - No data to display EKG: If EKG completed, see Procedure Note. Orders and Treatments: No orders of the defined types were placed in this encounter. No orders of the defined types were placed in this encounter. First Provider Eval: ED Events None No notes of EC Admission Criteria type on file. ED COURSE Diagnosis/Impression as of 12/06/22 0637 Anxiety Procedures: EKG-12 Lead ONCE Date/Time: 12/06/2022 6:38 AM Performed by: En Han MD Authorized by: En Han MD ECG reviewed by ED Physician in the absence of a laser operator: yes Previous ECG: Previous ECG: Unavailable Interpretation: Interpretation: normal Rate: ECG rate: 56 ECG rate assessment: bradycardic Rhythm: Rhythm: sinus bradycardia Ectopy: Ectopy: none QRS: QRS axis: Normal QRS intervals: Normal QRS conduction: normal ST segments: ST segments: Normal T waves: T waves: normal Q waves: Abnormal Q-waves: not present MDM: Medical Decision Making A) Situational Anxiety--stable at this time Disposition/Condition:Home, rest, hydration, reassurance ED Disposition None Discharge Medications: Patient's Medications START taking these medications No medications on file CONTINUE taking these medications which have NOT CHANGED AMOXICILLIN 500 MG CAPSULE Take 1 capsule by mouth 3 (three) times daily. DICYCLOMINE (BENTYL) 10 MG CAPSULE Take 1 capsule by mouth 4 (four) times daily. DICYCLOMINE 20 MG TABLET Take 1 tablet by mouth 4 (four) times daily. DOCUSATE SODIUM 250 MG CAPSULE Take 1 capsule by mouth daily. DOCUSATE SODIUM 250 MG CAPSULE Take 1 capsule by mouth once daily as needed for Constipation. IBUPROFEN 800 MG TABLET Take 1 tablet by mouth every 8 (eight) hours. IBUPROFEN 800 MG TABLET Take 1 tablet by mouth every 6 (six) hours as needed for Pain (scale 4-6) or Pain (scale 1-3). METHOCARBAMOL 500 MG TABLET Take 1 tablet by mouth 4 (four) times daily as needed for Pain (scale 4-6) or Pain (scale 7-10). NAPROXEN SODIUM 550 MG TABLET Take 1 tablet by mouth 2 (two) times daily with meals. NITROFURANTOIN&NIT. MACROCRYST (MACROBID) 100 MG CAPSULE Take 1 capsule by mouth in the morningand 1 capsule in the evening. ONDANSETRON 4 MG DISINTEGRATING TABLET Take 1 tablet by mouth every 4 (four) hours as needed for Nausea and Vomiting (N/V). ONDANSETRON 4 MG DISINTEGRATING TABLET Take 1 tablet by mouth every 4 (four) hours as needed for Nausea and Vomiting (N/V). ONDANSETRON 4 MG DISINTEGRATING TABLET Take 1 tablet by mouth every 8 (eight) hours as needed for Nausea and Vomiting (N/V). TAMSULOSIN (FLOMAX) 0.4 MG 24 HR CAPSULE Take 1 capsule by mouth in the morning. TRAMADOL 50 MG TABLET Take 1 tablet by mouth every 6 (six) hours as needed for Pain (scale 4-6). START taking Modified Medications as Prescribed No medications on file STOP taking these medications No medications on file Follow-up: PCP [facility] - [id number] 22:31:16 Pt given printed and verbal discharge instructions regarding flank pain Prescriptions provided Discussed ibuprofen and to take with food to avoid GI distress. Pt verbalized understanding of instructions, pt awake alert oriented, resp reg unlabored, skin w/d,color appropriate for race, moves all ext well,pt encouraged to follow up with pcp Advised to seek medical attention for new/prolonged/worsening of symptoms No adverse reaction to meds given in ER noted upon discharge PIV d'cd, dressing to site, catheter in tact. Awake, alert oriented, resp reg unlabored, skin w/d, pt leaving amb with steady gait, in no apparent distress [facility]iat Oh [facility]89[facility] 20:16:06 Pt presents with c/o right flank pain and n/v for 4 days. No meds MEDIA RELATIONS ASSOCIATE Celine Russell [facility]oh[facility]nc1729-04-50 00:05:00 [facility] ([facility]) EMERGENCY PROVIDER REPORT REPORT#:[id number] REPORT STATUS: Signed DATE:12/01/22 TIME:4 PATIENT: ROXANA YOUNG UNIT #: [id number] ROOM/BED: : 75 AGE: 47 SEX: F PCP PHYS: No Primary or Family Physician SERVICE AUTHOR: Minh Olivares * ALL edits or amendments must be made on the electronic/computer document * Minh Olivares 12/01/22 0005: HPI- Female Free Text HPI Notes Free Text HPI Notes 47-year-old female with no significant past medical history, past surgical history of hysterectomy presents with chief complaint of dysuria x2 days. She admits to suprapubic pain. She rates her pain as a 7 out of 10, she reports urinating makes the pain worse. Nothing make it better. She denies hematuria, increased urinary frequency or urgency, nausea vomiting, hematochezia, melena, hematemesis, fever, chills. She denies any other symptoms. General Initial Greet Date/Time 11/30/22 0990 Presentation Chief Complaint Dysuria )( Sudden in Onset? No Review of Systems ROS Statements All systems rev neg except as marked. Focused Review of Systems Constitutional Denies: Chills, Fever. GI Reports: Abdominal pain. Denies: Hematemesis, Hematochezia, Nausea, Vomiting. Female Reports: Dysuria. Denies: Flank pain, Urinary frequency, Urinary urgency, Urination decreased, Urination increased, Vaginal bleeding - abnl, Vaginal discharge. Musculoskeletal Denies: Back pain. Skin Denies: Rash. Past Medical History - Adult Stated Complaint URINATION ISSUES-PAIN, BURNING, FREQUENT Allergies Coded Allergies: acetaminophen (From VICODIN) (Mild, NAUSEA 12/01/22) hydrocodone (From VICODIN) (Mild, NAUSEA 12/01/22) Smoking status for patients 13 years old or older: Never Smoker Physical Exam Vital Signs Vital Signs First Documented: Result Date Time Pulse Ox 98 12/01 0001 B/P 138/86 12/01 0001 B/P Mean 103 12/01 0001 O2 Delivery Room air 12/01 0001 Temp 37.3 12/01 0001 Pulse 78 12/01 0001 Resp 18 12/01 0001 Last Documented: Result Date Time Pulse Ox 98 12/01 0115 B/P 142/80 12/01 0115 B/P Mean 100 12/01 0115 O2 Delivery Room air 12/01 0115 Temp 37.2 12/01 0115 Pulse 74 12/01 0115 Resp 18 12/01 0115 Review of Vital Signs Reviewed Focused PE General/Const General/Const Awake, Alert, No acute distress Resp/Chest Respiratory/Chest Breath sounds NL, Breath sounds = bilat, No respiratory distress Cardiovascular Cardiovascular Heart rate NL, Regular rhythm, Heart sounds NL Abdomen/GI Abdomen/GI Soft, Non-tender Genitourinary General Exam deferred Interpretation Diagnostics Lab Results Interpretation Results Laboratory Tests: 12/01 001 Urines Urine Color (YEL/STRAW discript) STRAW Urine Appearance (CLEAR discript) CLEAR Urine pH (5.0 - 7.0 pH UNITS) 7.0 Ur Specific [place] (1.005 - 1.030 SG) <=1.005 Urine Protein (NEG mg/dL) NEGATIVE Urine Glucose (UA) (NEG mg/dL) NEGATIVE Urine Ketones (NEG mg/dL) NEGATIVE Urine Blood (NEG mg/DL) NEGATIVE Urine Nitrite (NEG SCREEN) NEGATIVE Urine Bilirubin (NEG mg/dL) NEGATIVE Urine Urobilinogen (<2.0 mg/dL) 0.2 Ur Leukocyte Esterase (NEGATIVE Leuk/mcL) NEGATIVE Urine HCG, Qual (NEGATIVE) NEGATIVE Point of Care Testing Pulse Oximetry Pulse Ox % 98 On: Room air Interpretation Interpreted by me Re-Evaluation MDM Free Text MDM Notes Free Text MDM Notes 47-year-old female presents with chief complaint of dysuria. Low suspicious for ectopic because of negative test. low suspicious of UTI base on urinalysis report. will start pt on AZO for dysuria. will refer pt to uro for further evaluation of dysuria if symptoms does not improve. recommended pt to return if symptoms are getting worse, follow up with uro if symptoms does not improve she verbalize understaning. Differential Diagnosis Differential Diagnosis Cervicitis, Cystitis, acute, Ectopic , Ectopic preg, ruptured, Ureterolithiasis, Urethritis, chlamydial, Urethritis, gonococcal , Urinary obstruction, Urinary retention, Urinary tract infection, Urolithiasis, Vaginitis MDM-Complexity Ruled Out Diagnoses UTI Severity/Chronicity Evaluation benign acute Patient Discharge Departure Vital Signs/Condition Vital Signs First Documented: Result Date Time Pulse Ox 98 12/01 0001 B/P 138/86 12/01 0001 B/P Mean 103 / 0001 O2 Delivery Room air 12/01 0001 Temp 37.3 / 0001 Pulse 78 / 0001 Resp 18 12/01 0001 Last Documented: Result Date Time Pulse Ox 98 12/01 0115 B/P 142/80 / 0115 B/P Mean 100 12/01 0115 O2 Delivery Room air 12/01 0115 Temp 37.2 12/01 0115 Pulse 74 / 0115 Resp 18 12/01 0115 All vital signs available at the time of this entry have been reviewed. Condition Stable Clinical Impression Clinical Impression Primary Impression: Dysuria Disposition Decision Discharge )( Discharged to Home Yes )( Time 011 )( Date 12/01/22 Discharge/Care Plan Counseled Regarding Diagnosis, Lab results, Need for follow-up, When to return to ED (Auto) Prescriptions Current Visit Scripts PHENAZOPYRIDINE (AZO STANDARD) 97.5 MG PO BID 5 Days #10 TABS Patient Instructions ED Dysuria, Uncertain Cause (Adult) Discharge Note I have spoken with the patient and/or caregivers. I have explained the patient's condition, diagnoses and treatment plan based on the information available to me at this time. I have answered the patient's and/or caregiver's questions and addressed any concerns. The patient and/or caregivers have as good an understanding of the patient's diagnosis, condition and treatment plan as can be expected at this point. The vital signs have been stable. The patient's condition is stable and appropriate for discharge from the emergency department. The patient will pursue further outpatient evaluation with the primary care physician or other designated or consulting physician as outlined in the discharge instructions. The patient and/or caregivers are agreeable to this plan of care and follow-up instructions have been explained in detail. The patient and/or caregivers have received these instructions in written format and have expressed an understanding of the discharge instructions. The patient and/or caregivers are aware that any significant change in condition or worsening of symptoms should prompt an immediate return to this or the closest emergency department or a call to 911. John Christianson 12/02/22 2241: Patient Discharge Departure Discharge/Care Plan Referrals Provider Referral: Cesar Ferrell MD Address: [address] [place] [address] Supervising Physician Note MidLv Saw Pt Alone I have reviewed the PA/PATTERN HAND's note and plan of care. I was available for consultation as needed at all times during the patient's visit in the emergency department. I agree with the clinical impression, plan and disposition. at 0941 at 2241 [facility] #: [id number] END OF [id number] 02:51:12 Pt given printed and verbal discharge instructions regarding chest pain and hypercalcemia. Pt verbalized understanding of instructions, pt awake alert oriented, resp reg unlabored, skin w/d,color appropriate for race, moves all ext well, pt encouraged to follow up with pcp Advised to seek medical attention for new/prolonged/worsening of symptoms No adverse reaction to meds given in ER noted upon discharge PIV d'cd, dressing to site, catheter in tact. Awake, alert oriented, resp reg unlabored, skin w/d, pt leaving amb with steady gait, in no apparent distress [id number] 22:49:16 C/O substernal chest sharp pain that comes and goes that started approx 1hr, around 1600 today she began to body aches and chills, confusion that started around 1900 tonight. Valorie Youssef [id number] 22:40:00 [facility] Emergency Department Note Patient Name: Roxana Young Date of : 1975 47 year old female Treatment Room: [place] [address] Primary Care Physician: Hugh Mercado [facility] Patient Escorted by: Self [9] Mode of Arrival: Personal means [1] EMS Treatment Prior to ED Arrival: MEDIA RELATIONS ASSOCIATE treatment: None Travel and Exposure Screening: Symptoms Does patient have any of these symptoms?: (not recorded) Exposure Screening Has patient had contact with someone with a communicable disease in the last month?: (not recorded) Diseases exposed to:: (not recorded) Is Patient ?: (not recorded) Exposure Date: (not recorded) Chief Complaint: Chief Complaint Patient presents with Chest Pain Body Aches History of Present Illness: Roxana Young is a 47 year old female who presents to the ED with body aches that began earlier this evening,and SOB. No cough. No fever. Also reports mid sternal chest wall pain. Pain is sharp nonradiating rated at 6/10. Deep breathing and movements worsen pain. Pt did not take any rx for the pain. 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 Currently pt has no pain. No headache. No travel hx. Does not smoke. No prolonged immobilization. No calf pain or tenderness. History provided by: Patient and medical records medical dir used: No Chest Pain Pain location: L chest Pain quality: sharp Pain radiates to: Does not radiate Pain severity: Moderate Onset quality: Gradual Duration: 1 day Timing: Intermittent Chronicity: New Context: breathing, lifting and movement Context: not drug use, not eating, not raising an arm, not at rest, not stress and not trauma Relieved by: None tried Worsened by: Deep breathing, movement and certain positions Ineffective treatments: None tried Associated symptoms: shortness of breath Associated symptoms: no abdominal pain, no AICD problem, no altered mental status, no anorexia, no anxiety, no back pain, no claudication, no cough, no diaphoresis, no dizziness, no dysphagia, no fatigue, no fever, no headache, no heartburn, no lower extremity edema, no nausea, no near-syncope, no numbness, no orthopnea, no palpitations, no PND, no syncope, no vomiting and no weakness Past Medical History/Immunizations: Past Medical History: Diagnosis Date GERD (gastroesophageal reflux disease) Chronic hypercalcemia Tetanus received in last 5 years: No Childhood immunizations: Up-to-date Allergies: Allergies Allergen Reactions Hydrocodone Hallucinations and Shortness of Breath Past Social History: Tobacco Use Never smoked or used smokeless tobacco. Alcohol Use No. Drug Use No. Sexual Activity Not currently sexually active. Past Surgical History: Past Surgical History: Procedure Laterality Date SECTION x2 HYSTERECTOMY Review of Systems: Review of Systems Constitutional: Negative. Negative for diaphoresis, fatigue and fever. HENT: Negative. Negative for trouble swallowing. Eyes: Negative. Respiratory: Positive for shortness of breath. Negative for cough. Breasts: Negative. Cardiovascular: Positive for chest pain. Negative for palpitations, orthopnea, claudication, syncope, PND and near-syncope. Gastrointestinal: Negative. Negative for abdominal pain, anorexia, heartburn, nausea and vomiting. Genitourinary: Negative. Musculoskeletal: Negative. Negative for back pain. Skin: Negative. Neurological: Negative. Negative for dizziness, weakness, numbness and headaches. Psychiatric/Behavioral: Negative. All other systems reviewed and are negative. Endocrine: Endocrine negative Physical Exam: ED Triage Vitals [11/22/22 2252] Weight 72.6 kg (160 lb) Actual or estimated Height 1.651 m (5' 5") BP (!) 156/96 Pulse 72 Resp 18 Temp 37.1 ?C (98.8 ?F) Temp source Oral SpO2 98 % Measured on Room air Physical Exam Vitals and nursing note reviewed. Constitutional: General: She is not in acute distress. Appearance: Normal appearance. She is well-developed. She is not ill-appearing, toxic-appearing or diaphoretic. HENT: Head: Normocephalic and atraumatic. Right Ear: External ear normal. Left Ear: External ear normal. Nose: Nose normal. Mouth/Throat: Mouth: Mucous membranes are moist. Pharynx: Oropharynx is clear. No oropharyngeal exudate or posterior oropharyngeal erythema. Eyes: General: No scleral icterus. Right eye: No discharge. Left eye: No discharge. Extraocular Movements: Extraocular movements intact. Conjunctiva/sclera: Conjunctivae normal. Pupils: Pupils are equal, round, and reactive to light. Neck: Thyroid: No thyromegaly. Cardiovascular: Rate and Rhythm: Normal rate and regular rhythm. Pulses: Normal pulses. Heart sounds: Normal heart sounds. No murmur heard. Pulmonary: Effort: Pulmonary effort is normal. No respiratory distress. Breath sounds: Normal breath sounds. No stridor. No wheezing, rhonchi or rales. Chest: Chest wall: No tenderness. Abdominal: General: Bowel sounds are normal. There is no distension. Palpations: Abdomen is soft. Tenderness: There is no abdominal tenderness. There is no right CVA tenderness, left CVA tenderness, guarding or rebound. Musculoskeletal: General: No swelling, tenderness, deformity or signs of injury. Normal range of motion. Cervical back: Normal range of motion and neck supple. No rigidity or tenderness. Right lower leg: No edema. Left lower leg: No edema. Lymphadenopathy: Cervical: No cervical adenopathy. Skin: General: Skin is warm and dry. Capillary Refill: Capillary refill takes less than 2 seconds. Coloration: Skin is not jaundiced or pale. Findings: No bruising, erythema, lesion or rash. Neurological: General: No focal deficit present. Mental Status: She is alert and oriented to person, place, and time. Cranial Nerves: No cranial nerve deficit. Sensory: No sensory deficit. Motor: No weakness or abnormal muscle tone. Coordination: Coordination normal. Gait: Gait normal. Deep Tendon Reflexes: Reflexes normal. Psychiatric: Behavior: Behavior normal. Thought Content: Thought content normal. Judgment: Judgment normal. Radiology: XR CHEST 1 VW Preliminary Result EXAM: XR CHEST 1 VW 11/22/2022 11:30 PM HISTORY: 47 years-old Female with chest pain . TECHNIQUE: Portable AP view of the chest. COMPARISON: CXR 04/10/2021. FINDINGS: Heart/Mediastinum: The cardiomediastinal silhouette is normal in size accounting for technique. Lungs: Low lung volumes. Suboptimal inspiratory volumes resulting in bronchovascular crowding and scattered subsegmental atelectasis. No focal consolidation, pneumothorax, or pleural effusion is seen. Bones/Soft Tissues: No acute osseous lesions are detected. The soft tissues appear normal. IMPRESSION No radiographic evidence of acute cardiopulmonary process. Preliminary Report Dictated by Resident: Kerwin Weaver Lab Results: Lab Results COMP. METABOLIC PANEL (63852) - Abnormal Result Value Ref Range NA 142 135 - 145 mmol/L K 4.0 3.5 - 5.0 mmol/L CL 106 98 - 108 mmol/L CO2 TOTAL 26 23 - 31 mmol/L AGAP 10 2 - 16 BUN 13 7 - 23 mg/dL GLUCOSE 107 70 - 110 mg/dL CREATININE 0.68 0.50 - 1.04 mg/dL TOTAL BILI 0.4 0.1 - 1.1 mg/dL CALCIUM 11.2 (*) 8.6 - 10.6 mg/dL T PROTEIN 9.2 (*) 6.3 - 8.2 g/dL ALBUMIN 4.4 3.5 - 5.0 g/dL ALK PHOS 102 34 - 122 U/L ALTv 30 5 - 35 U/L AST(SGOT) 34 13 - 40 U/L eGFR 92.7 mL/min/1.73m2 TROPONIN I - Normal TROPONIN I 0.005 <=0.034 ng/mL LIPASE - Normal LIPASE 171 0 - 220 U/L N-TERMINAL PRO-BNP - Normal NT-proBNP <20 <=125 pg/mL COVID-19 (ID NOW RAPID TESTING) - Normal SARS-CoV-2 Rapid ID NOW Not Detected Not Detected TROPONIN I - Normal TROPONIN I 0.005 <=0.034 ng/mL CBC WITH DIFF WBC 6.88 4.30 - 11.10 10*3/?L RBC 4.19 3.93 - 5.25 10*6/?L HGB 12.8 11.6 - 15.0 g/dL HCT 37.5 35.7 - 45.2 % MCV 89.5 80.6 - 95.5 fL MCH 30.5 25.9 - 32.8 pg MCHC 34.1 31.6 - 35.1 g/dL RDW-SD 43.8 39.0 - 49.9 fL RDW-CV 13.4 12.0 - 15.5 % PLT 194 166 - 358 10*3/?L MPV 9.9 9.5 - 12.9 fL NRBC/100 WBC 0.0 0.0 - 10.0 /100 WBCs NRBC x10^3 <0.01 10*3/?L GRAN MAT (NEUT) % 54.6 % IMM GRAN % 0.10 % LYMPH % 35.8 % MONO % 7.7 % EOS % 1.5 % BASO % 0.3 % GRAN MAT x10^3(ANC) 3.76 1.88 - 7.09 10*3/uL IMM GRAN x10^3 <0.03 0.00 - 0.06 10*3/uL LYMPH x10^3 2.46 1.32 - 3.29 10*3/uL MONO x10^3 0.53 0.33 - 0.92 10*3/uL EOS x10^3 0.10 0.03 - 0.39 10*3/uL BASO x10^3 <0.03 0.01 - 0.07 10*3/uL Orders and Treatments: Orders Placed This Encounter Procedures XR CHEST 1 VW TROPONIN I COMP. METABOLIC PANEL (16985) LIPASE, SERUM CBC WITH DIFF N-TERMINAL PRO-BNP COVID-19 (ID NOW TESTING) LAB ONLY COVID INTERPRETATION TROPONIN I No orders of the defined types were placed in this encounter. First Provider Eval: ED Events Date/Time Event User Comments 11/22/222248 Medical Screening Begins INGRID PAEZ MD -- 11/22/222248 First Provider Evaluation INGRID PAEZ MD -- No notes of EC Admission Criteria type on file. ED COURSE Diagnosis/Impression as of 11/23/22 0245 Chest pain, unspecified type Hypercalcemia Procedures: Procedures MDM: Medical Decision Making Roxana Young is a 47 year old female who presents to the ED with body aches and cheat wall pain Problems Addressed: Chest pain, unspecified type: acute illness or injury Details: ED evaluation, laboratory, EKG and imaging study results as documented Hypercalcemia: chronic illness or injury Details: Pt has chronic recurring mild to moderate hypercalcemia but has not followed up with PCP for further work-up Discussed need for close-up to determine etiology and subsequent management of the hypercalcemia Amount and/or Complexity of Data Reviewed Labs: ordered. Radiology: ordered. Flowsheet Documentation: Pt DECLINED ANY analgesics in the ED as she reports that she has not had any further pain/aches during entire period of evaluation in ED Discussed at great length possible etiologies of hypercalcemia to include but not limited to MEN syndrome, Hyperparathyroid states, Vitamin D dysregulation, Adrenal insufficieny and malignancy and encouraged pt to follow-up closely with PCP for diagnostic work-up. Pt verbalizes understanding and will follow-up MESSI Scoring Tools: No data recorded Disposition/Condition: ED Disposition ED Disposition Disch - Home Condition Stable Comment -- Discharge Medications: Patient's Medications START taking these medications No medications on file CONTINUE taking these medications which have NOT CHANGED AMOXICILLIN 500 MG CAPSULE Take 1 capsule by mouth 3 (three) times daily. DICYCLOMINE (BENTYL) 10 MG CAPSULE Take 1 capsule by mouth 4 (four) times daily. DICYCLOMINE 20 MG TABLET Take 1 tablet by mouth 4 (four) times daily. DOCUSATE SODIUM 250 MG CAPSULE Take 1 capsule by mouth daily. DOCUSATE SODIUM 250 MG CAPSULE Take 1 capsule by mouth once daily as needed for Constipation. IBUPROFEN 800 MG TABLET Take 1 tablet by mouth every 8 (eight) hours. NAPROXEN SODIUM 550 MG TABLET Take 1 tablet by mouth 2 (two) times daily with meals. NITROFURANTOIN&NIT. MACROCRYST (MACROBID) 100 MG CAPSULE Take 1 capsule by mouth in the morningand 1 capsule in the evening. ONDANSETRON 4 MG DISINTEGRATING TABLET Take 1 tablet by mouth every 4 (four) hours as needed for Nausea and Vomiting (N/V). ONDANSETRON 4 MG DISINTEGRATING TABLET Take 1 tablet by mouth every 4 (four) hours as needed for Nausea and Vomiting (N/V). TAMSULOSIN (FLOMAX) 0.4 MG 24 HR CAPSULE Take 1 capsule by mouth in the morning. TRAMADOL 50 MG TABLET Take 1 tablet by mouth every 6 (six) hours as needed for Pain (scale 4-6). START taking Modified Medications as Prescribed No medications on file STOP taking these medications No medications on file Follow-up: Electronically signed by: Ingrid Paez MD 11/23/[address] [facility]46[facility] 15:02:00EXAM: XR CHEST 2 VIEWS DATE: 03/29/2018 15:02 [employer] INDICATION: - chest pain COMPARISON: Radiograph dated 11/17/2017 at 0027 hours TECHNIQUE: Upright PA and lateral chest radiographs FINDINGS: No pulmonary or pleural-based abnormality is identified. The heart size is normal. No acute bony abnormality is identified. IMPRESSION: No acute cardiopulmonary abnormality. UT SECTION: ER [facility]2019-01-04 15:02:00* EXAM: XR CHEST 2 VIEWS DATE: 03/29/2018 15:02 [employer] INDICATION: - chest pain COMPARISON: Radiograph dated 11/17/2017 at 0027 hours TECHNIQUE: Upright PA and lateral chest radiographs FINDINGS: No pulmonary or pleural-based abnormality is identified. The heart size is normal. No acute bony abnormality is identified. IMPRESSION: No acute cardiopulmonary abnormality. UT SECTION: [facility]2018-08-24 22:04:00Clinical Indication: - weakness Comparison: None FINDINGS: The AP supine view of the abdomen shows a non-obstructive bowel gas pattern. There is no abnormal dilatation of bowel loops. There is no pneumatosis or mass effect. There is no gross evidence for pneumoperitoneum. There are no radiopaque densities noted. There are no clinically significant osseous abnormalities noted. There are radiopacities overlying the transverse colon and left kidney, these may represent colonic contents or renal calculi. IMPRESSION: 1. Unremarkable abdomen. SL: [id number] [facility] [id number] 22:04:00Clinical Indication: - weakness Comparison: 10/31/2017 FINDINGS: AP chest radiograph was obtained. MEDIASTINUM: The cardiac silhouette is normal in size. The aorta is unremarkable. LUNGS: Lung volumes are maintained. There are no focal infiltrates or effusions. There are no pneumothoraces noted. BONES: The visualized osseous structures are unremarkable. IMPRESSION: No acute infiltrates or effusions. : [id number] [facility] [id number] 22:04:00* Clinical Indication: - weakness Comparison: None FINDINGS: The AP supine view of the abdomen shows a non-obstructive bowel gas pattern. There is no abnormal dilatation of bowel loops. There is no pneumatosis or mass effect. There is no gross evidence for pneumoperitoneum. There are no radiopaque densities noted. There are no clinically significant osseous abnormalities noted. There are radiopacities overlying the transverse colon and left kidney, these may represent colonic contents or renal calculi. IMPRESSION: 1. Unremarkable abdomen. SL: [id number] [facility] [id number] 22:04:00* Clinical Indication: - weakness Comparison: 10/31/2017 FINDINGS: AP chest radiograph was obtained. MEDIASTINUM: The cardiac silhouette is normal in size. The aorta is unremarkable. LUNGS: Lung volumes are maintained. There are no focal infiltrates or effusions. There are no pneumothoraces noted. BONES: The visualized osseous structures are unremarkable. IMPRESSION: No acute infiltrates or effusions. SL: [id number] [facility] [id number] 15:09:00Clinical Indication: CVA - cva Comparison: 10/25/2017 FINDINGS: Single AP view of the chest is submitted for interpretation. The lungs are clear and there are no effusions. There is no visible pneumothorax. Cardiomediastinal contours are within normal limits. No gross bony normalities are identified. IMPRESSION: 1. No radiographic evidence of acute cardiopulmonary process. SL: [id number] [facility] [id number] 15:09:00Patient Name: ROXANA YOUNG : 1975; Age: 42 years y/o Female MR: [id number] Study: Brain Stroke wo contrast CT 10/31/2017 [...] location utilizes radiation dose optimization techniques which includeone or more of the following: -Automated exposure [...] of the brain should be considered. SL: RIK [facility] [id number] 15:09:00* Clinical Indication: CVA - cva Comparison: 10/25/2017 FINDINGS: Single AP view of the chest is submitted for interpretation. The lungs are clear and there are no effusions. There is no visible pneumothorax. Cardiomediastinal contours are within normal limits. No gross bony normalities are identified. IMPRESSION: 1. No radiographic evidence of acute cardiopulmonary process. SL: JEFF [facility] CenterFpumche0587-31-11 15:09:00* Patient Name: ROXANA YOUNG : 1975; Age: 42 years y/o Female MR: [id number] Study: Brain Stroke wo contrast CT 10/31/2017 [...] of the brain should be considered. SL: [id number] [facility] [id number] 00:22:00RIGHT UPPER QUADRANT ABDOMINAL ULTRASOUND DATED 10/26/2017 CLINICAL INDICATION: Acute epigastric abdominal pain. Nausea and vomiting. COMPARISON: CT abdomen dated 10/13/2017 TECHNIQUE: Sonographic evaluation of the right upper quadrant was performed with supplemental colorand pulsed Doppler. FINDINGS: LIVER: The liver is [...] evidence of cholelithiasis or acute cholecystitis. SL:131 [id number] 00:22:00* RIGHT UPPER QUADRANT ABDOMINAL ULTRASOUND DATED 10/26/2017 CLINICAL INDICATION: Acute epigastric abdominal pain. Nausea [...] evidence of cholelithiasis or acute cholecystitis. SL:131 [facility] HospitalHatiblaqj0971-50-66 23:16:00Clinical Indication: - chest pain; Comparison: None FINDINGS: The PA and lateral chest radiographs shows normal lung volumes without interstitial or airspace opacities, pleural effusions or pneumothorax. The heart size and pulmonary vasculature are normal. The trachea is midline. There are no clinically significant osseous abnormalities noted. IMPRESSION: No chest radiographic evidence of acute cardiopulmonary disease. [facility]00* Clinical Indication: - chest pain; Comparison: None FINDINGS: The PA and lateral chest radiographs shows normal lung volumes without interstitial or airspace opacities, pleural effusions or pneumothorax. The heart size and pulmonary vasculature are normal. The trachea is midline. There are no clinically significant osseous abnormalities noted. IMPRESSION: No chest radiographic evidence of acute cardiopulmonary disease. SL: [facility]49[facility] 09:54:00Clinical Indication: - rlq abd pain. Comparison: 08/24/2006. TECHNIQUE: Helical imaging was performed from diaphragm through the symphysis with coronal and sagittal reconstructions. CT imaging was performed with exposure control parameters to reduce radiation dose. IV CONTRAST: 100 cc Omnipaque. GI CONTRAST: No CT Radiation Dose: DLP = 576.82 mGy-cm FINDINGS: LOWER CHEST: Visualized aspects of [...] left ureter without radiopaque stone. SL[facility]rz6887-45-36 09:54:00* Clinical Indication: - rlq abd pain. Comparison: 08/24/2006. TECHNIQUE: Helical imaging was performed from diaphragm through the symphysis with coronal and sagittal reconstructions. CT imaging was performed with exposure control parameters to reduce radiation dose. IV CONTRAST: 100 cc Omnipaque. GI CONTRAST: No CT Radiation Dose: DLP = 576.82 mGy-cm FINDINGS: LOWER CHEST: Visualized aspects of [...] left ureter without radiopaque stone. SL: [facility] CenterKiefhta7577-90-07 17:49:38Patient Name: ROXANA YOUNG : 1975; Age: 40 years y/o Female MR: [id number] * ABDOMEN, 1 view HISTORY: Acute generalized [...] IMPRESSION: 1. Benign appearance the abdomen. SL: [facility]2016-12-23 17:49:38Patient Name: ROXANA YOUNG : 1975; Age: 40 years y/o Female MR: [id number] * CHEST, 2 views HISTORY: Cough and [...] No active disease. 2. Borderline cardiomegaly. SL: [facility]2016-12-23 17:49:38* Patient Name: ROXANA YOUNG : 1975; Age: 40 years y/o Female MR: [id number] * ABDOMEN, 1 view HISTORY: Acute generalized [...] IMPRESSION: 1. Benign appearance the abdomen. SL: [facility]2016-12-23 17:49:38* Patient Name: ROXANA YOUNG : 1975; Age: 40 years y/o Female MR: [id number] * CHEST, 2 views HISTORY: Cough and [...] No active disease. 2. Borderline cardiomegaly. [facility]48Chest one view: Exam reason: Chest pain. The cardiomediastinal silhouette is accentuated by suboptimal inspiratory effort, portable technique and positional obliquity. Lungs are clear. There is no consolidation or pleural fluid collection. SL:14 [facility]bm[facility]h7830-[facility] 07:29:48* Chest one view: Exam reason: Chest pain. The cardiomediastinal silhouette is accentuated by suboptimal inspiratory effort, portable technique and positional obliquity. Lungs are clear. There is no consolidation or pleural fluid collection. SL:14 [facility]ukyyexpn1726-95-25 09:31:00PROCEDURE: Chest 2 views CLINICAL INDICATION: Chest pain COMPARISON: March 07, 2013. 09/2006. 07/2006 multiple x-rays. FINDINGS: There is blunting of the right costophrenic angle secondary to atelectasis or small pleural effusion. Enlarged cardiac silhouette. There is no pneumothorax. There is no free air under the diaphragm. The visualized osseous structures are normal for soft tissue technique. SL[facility]* PROCEDURE: Chest 2 views CLINICAL INDICATION: Chest pain COMPARISON: March 07, 2013. 09/2006. 07/2006 multiple x-rays. FINDINGS: There is blunting of the right costophrenic angle secondary to atelectasis or small pleural effusion. Enlarged cardiac silhouette. There is no pneumothorax. There is no free air under the diaphragm. The visualized osseous structures are normal for soft tissue technique. SL: 16 [facility]oir[facility]4526[facility]71-98 09:55:17CHEST 2 VIEWS HX: Fever COMPARISON: 10/05/2006 FINDINGS: The lungs are free of consolidation or pleural effusion and the mediastinal silhouette iswithin normal limits of size. The visualized osseous structures are grossly negative. IMPRESSION: Negative chest. SL: 15 [facility]1660[facility] 09:55:17* CHEST 2 VIEWS HX: Fever COMPARISON: 10/05/2006 FINDINGS: The lungs are free of consolidation or pleural effusion and the mediastinal silhouette is within normal limits of size. The visualized osseous structures are grossly negative. IMPRESSION: Negative chest. SL: 15 [facility]
[2024-11-08] MEDS ORDERED: BACI/NEOMYCIN/POLY OINT 15GM TOP ONE (23:03)
[2024-11-08 23:38] LABS: Influenza A Ag Negative; Influenza B Ag Negative; SARS-CoV-2 Antigen Rapid Res Negative (Negative)
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
[2024-11-09 08:25] VITALS: TEMP 97
[2024-11-09 08:28] VITALS: BP 141/93; O2SAT 95
== END 2024-11-09 00:02 | disposition home or self-care (01) ==
LOC: ER 22:39
DX: T23.262A Burn of second degree of back of left hand, initial encounter (principal); M79.10 Myalgia, unspecified site; I10 Essential (primary) hypertension; Z11.52 Encounter for screening for COVID-19
CPT/HCPCS: 36415; 87428; 99284